=== PATIENT | female | born 1945 | race Caucasian/White ===

== ENCOUNTER 2024-03-21 09:25 | Outpatient (REF) | payer MEDICARE, SELFPAY ==
--- NOTE | ~2024-03-21 | CT_ITS ---
EXAMINATION: CT CHEST WITHOUT CONTRAST CLINICAL INFORMATION: Lung nodules COMPARISON: None available. TECHNIQUE: Multidetector volumetric CT imaging of the chest was done. Axial MIP volume rendering provided. Sagittal and coronal reformatted images were obtained. This CT examination was performed using dose optimization techniques as appropriate, variously including the following: *Automated exposure control *Adjustment of mA and/or kV according to patient size (this includes techniques or standardized protocols for targeted exams where dose is matched to indication/reason for exam; i.e. 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 On the left there is subpleural left upper lobe 0.9 cm nodule seen on image 91 series 5, and there are multiple lung nodules in the left lower lobe, measured between 0.9 cm and 1.1 cm as well as subpleural nodule in the left lower lobe measured 1.3 cm. MEDIASTINUM: There is no mediastinal lymphadenopathy. There is mild cardiomegaly.. CORONARY ARTERY CALCIFICATION: Moderate PLEURA: There is no pleural effusion. No pleural mass or thickening. AXILLA: No lymphadenopathy. UPPER ABDOMEN: Unremarkable. OSSEOUS STRUCTURES: Unremarkable. CT/CT chest wo IV con IMPRESSION: 1. Multiple bilateral lung nodules, most likely metastatic disease. Consider possibility of squama cell metastasis 2. Right upper lobe consolidation and bronchiectasis. 3. Mild cardiomegaly.. 4. PET/CT scan is recommended for follow-up of the lung nodules and the right upper lobe consolidation. Fleischner guidelines were followed. Electronically signed by: Michaela Quintero MD 04/02/2024 07:30 PM EDT
== END 2024-03-21 09:26 | disposition home or self-care (01) ==
LOC: HO.CT 09:25
PROVIDERS: PCP Family Medicine; Visit Provider Family Medicine
DX: R91.1 Solitary pulmonary nodule (principal)
CPT/HCPCS: 71250

== ENCOUNTER 2024-08-08 05:40 | Outpatient (REF) | payer MEDICARE, SELFPAY ==
[2024-08-08 05:42] LABS: MANUAL DIFF FLAG NO
--- OUTSIDE RECORDS SUMMARY | 2024-08-08 05:42 | XMS_ITS | Clinical Summary ---
Author Organization [facility] Address [address] [place] [address] Care Team Providers Care Air Brake Adjuster Name Role Phone [email or web address] Primary Care Provider [phone] Allergies No known active allergies Medications Medication Sig Dispensed Refills Start Date End Date Status ferrous sulfate 325 (65 FE) MG tablet Take 1 tablet (325 mg total) by mouth every morning with breakfast. 0 Active simvastatin (ZOCOR) tablet 20 mg Take 1 tablet (20 mg total) by mouth every night at bedtime. 0 Active lisinopril (PRINIVIL,ZESTRIL) tablet 10 mg Take 1 tablet (10 mg total) by mouth daily. 0 Active metFORMIN (GLUCOPHAGE) tablet 500 mg Take 2 tablets (1,000 mg total) by mouth 2 (two) times a day with meals. 0 Active glipiZIDE (GLUCOTROL XL) ER 24 hr tablet 5 mg Take 1 tablet (5 mg total) by mouth daily. 0 Active calcium carbonate (Calcium 600) 600 MG tablet Take 1 tablet (600 mg total) by mouth daily. 0 Active Multiple Vitamins-Minerals (MULTI-SAVITA PO) Take by mouth. 0 Activ e CRANBERRY PO Take by mouth. 0 Active cetirizine (ZyrTEC) 10 MG tablet Take 1 tablet (10 mg total) by mouth daily. 0 Active Active Problems No known active problems Social History Tobacco Use Types Packs/Day Years Used Date Smoking Tobacco: Never Assessed Sex and Gender Information Value Date Recorded Sex Assigned at Not on file Gender Identity Not on file Sexual Orientation Not on file Job Start Date Occupation Industry Not on file Not on file Not on file Last Filed Vital Signs Vital Sign Reading Time Taken Comments Blood Pressure 126/42 04/12/2024 2:05 PM EDT Pulse 104 04/12/2024 2:05 PM EDT Temperature 36.7 ??C (98.1 ??F) 04/12/2024 2:05 PM ED T Respiratory Rate - - Oxygen Saturation 100% 04/12/2024 2:05 PM EDT Inhaled Oxygen Concentration - - Weight 80.3 kg (177 lb) 04/12/2024 2:05 PM EDT Height 165.1 cm (5' 5 ) 04/12/2024 2:05 PM EDT Body Mass Index 29.45 04/12/2024 2:05 PM EDT Plan of Treatment Health Maintenance Due Date Last Done Comments Depression Screening 1955 Preventative Health Evaluation 1961 Shingrix-Zoster Vaccine (1 of 2) 1993 Fall Risk Assessment 2008 Osteoporosis Screening (DEXA Scan) 2008 RSV Adult > 60+ Yrs or (1 - 1-dose 75+ series) 2018 COVID-19 Vaccine ( season) 2024 04/21/2022, 03/27/2021, 08/22/2020, Additional history exists DTap / Tdap / Td (3 - Td or Tdap) 09/29/2032 09/29/2022, 08/12/2012 Pneumococcal Vaccine Completed 05/31/2015, 08/02/19 11 Influenza Vaccine Completed 03/22/2024, , 03/06/2020, Additional history exists Hepatitis B Vaccines Aged Out No long er eligible based on patient's age to complete this topic RSV Ped < 20 months Aged Out No longe r eligible based on patient's age to complete this topic Care Teams Air Brake Adjuster Relationship Specialty Start Date End Date Eloisa Vázquez DO [address] [address] PCP - General Internal Medicine 04/07/24
--- OUTSIDE RECORDS SUMMARY | 2024-08-08 05:44 | XMS_ITS | Encounter Summary ---
Author Organization [facility] Address [address] [place] [address] Care Team Providers Care Thread Inspector Name Role Phone Eloisa Vázquez DO Primary Care Provider [phone] Reason for Visit * Reason Comments Fall * Auth/Cert Specialty Diagnoses / Procedures Referred By Contac t Referred To Contact Diagnoses Acute encephalopathy Procedures . Wayne Donahue MD [address] [place] [phone] Phone: tel: fax: [facility] Emergency [address] [place] [address] Phone: tel: Referral ID Status Reason Start Date Expiration Date Visits Re quested Visits Authorized [id number] 1 1 Encounter Details Date Type Department Care Team (Late st Contact Info) Description 07/08/2024 10:31 AM EST - 08/06/2024 1:09 PM EST Hospital Encounter [facility] Urology Unit [address] [place] [address] Jj Wolfe MD [address] [place] [address] Wayne Donahue MD [address] [place] [address] Maria Alejandra Melendez MD [address] [place] [address] Kwesi Guido MD [address] [place] [phone] Lencho Stuart MD [address] [place] [address] Jonny Mathur MD [address] [place] [phone] Steve Cruz MD [address] [place] [address] Anemia, unspecified type (Primary Dx); Hyponatremia; Acute on chronic renal insufficiency; Acute encephalopathy; Bilateral leg edema; Pulmonary nodule Discharge Disposition: Senior Living Facility Social History Tobacco Use Types Packs/Day Years Used Date Smoking Tobacco: Never Passive Smoke Exposure: Never Smokeless Tobacco: Never Alcohol Use Standard Drinks/Week Comments No 0 (1 standard drink = 0.6 oz pur e alcohol) Interpersonal Safety Answer Date Record ed Physical Abuse 07/08/2024 Verbal Abuse 07/08/2024 Comments Unknown Sex and Gender Information Value Date Recorded Sex Assigned at Female 05/23/2024 11:57 AM EST Legal Sex Female 7:45 PM EST Gender Identity Female 06/17/2024 9:26 AM EST Sexual Orientation Straight 05/23/2024 11 :57 AM EST documented as of this encounter Last Filed Vital Signs Vital Sign Reading Time Taken Comments Blood Pressure 128/62 08/06/2024 7:25 AM EST Pulse 88 08/06/2024 7:25 AM EST Temperature 36.7 ??C (98.1 ??F) 08/06/2024 7:25 AM ES T Respiratory Rate 16 08/06/2024 7:25 AM EST Oxygen Saturation 100% 08/06/2024 7:25 AM EST Inhaled Oxygen Concentration - - Weight 69.8 kg (153 lb 12.8 oz) 08/06/2024 4:11 AM EST Height 162.5 cm (5' 3.98 ) 07/09/2024 1 2:21 AM EST Body Mass Index 26.42 07/09/2024 12:21 AM EST documented in this encounter Functional Status * Are you deaf or do you have serious difficulty hearing? Answer Date of Assessment Author No 07/08/2024 3:24 PM Davina Pierre RN * Are you blind or do you have serious difficulty seeing, even when wearing glasses? Answer Date of Assessment Author Yes 07/08/2024 3:24 PM Davina Pierre RN * Do you have serious difficulty walking or climbing stairs? Answer Date of Assessment Author No 07/08/2024 3:24 PM Davina Pierre RN * Do you have serious difficulty dressing or bathing? Answer Date of Assessment Author No 07/08/2024 3:24 PM Davina Pierre RN * Because of a physical, mental, or emotional condition, do you have serious difficulty doing errandsalone such as visiting the doctor? Answer Date of Assessment Author Yes 07/08/2024 3:24 PM Davina Pierre RN documented as of this encounter Mental Status * Because of a physical, mental, or emotional condition, do you have serious difficulty concentrating, remembering, or making decisions? (5 years old or older) Answer Entry Date Author No 07/08/2024 3:24 PM EST Lillian Granados RN documented in this encounter Discharge Summaries * Steve Cruz MD - 08/06/2024 12:54 PM EST Images from the original note were not included. [place] DISCHARGE SUMMARY Patient Information Handley A Contreras : 1945 [79 y.o.] Admitting Provider Wayne Donahue MD Discharge Provider Steve Cruz MD, Steve Cruz MD Primary Care Physician Eloisa Vázquez, Admission Date 07/08/2024 Discharge Date 08/06/2024 Summary of Hospital Problems Primary Discharge Diagnosis: Acute encephalopathy Secondary Discharge Diagnosis: esrd Discharge Destination: snf Code Status at Discharge: Full Code - Confirmed Hospital Course Summary LOS: 29 days H&P as on 07/08/2024 Mrs. Contreras is a 79-year old female with PMH that shows pulmonary nodule undergoing workup for squamous cell lung cancer with scheduled bronchoscopy and EBUS procedure next week with Dr. Montez, hypertension, hyperlipidemia, CKD, iron deficiency anemia, diabetes mellitus type 2 seen today after wellness check. Patients daughter called and did not get in touch with her mother so she called for a wellness check and the patient was found down on the ground by [facility]. She was unsure the detailsof how long she had been on the ground and how she ended up there they decided to transfer her to the hospital for further evaluation. She was initially confused in the ED. She still could not provide much history regarding what was going on but was currently alert and oriented x 4. She states thatshe has had a dry cough and has had more weakness. She denies any fevers or chills, chest pain, shortness of breath, nausea, vomiting, abdominal pain, diarrhea, leg swelling. She is legally blind so she is unaware if her stool was bloody. She has no other complaints at this time. In review of her labs she was noted to be hyponatremic but only 131/132 in May. Her creatinine was 1.6-2 and her hemoglobin was 7.4-8.2 and her white count was 12- 13. She also follows with Dr. Bryant. Vitals are as follows: Temperature of 36.4, heart rate 96, respirate of 16, blood pressure 165/70 and pulse ox of 96% on room air. Labs notable for sodium of 126, glucose of 265, BUN of 59, creatinine of 4.1, troponin of 80, 81, wbcc 18.9, hgb 7.3, hct 23.7, ua does not appear infected. CT of the cervical spine showed no acute cervical spine fracture. CT of the head showed no acute intracranial abnormality. Patient was transfused 1 unit of packed red blood cells. Patient will be transferred to the care of [facility] staff for further management of their acute encephalopathy, fall. Hospital course Patient is 79 years old female with past medical history significant for type 2 diabetes, hypertension, chronic kidney disease stage IV, iron deficiency anemia, dyslipidemia, lung nodule brought to the [facility] after wellness check was called to police by her daughter. Patient was foundon the ground unable to get up and was confused. Patient admitted to medical floors for further management of chronic kidney disease, metabolic encephalopathy. # Acute on chronic kidney injury, crescentic glomerulonephritis requiring hemodialysis. -Patient is on hemodialysis Thursday. On prednisone, Bactrim every Thursday. Per air intelligence officer patient's kidney biopsy consistent with crescentic glomerulonephritis. Rituximab given on 07/28/2024. Next dose in 2 weeks. Patient is being followed by air intelligence officer for hemodia lysis. Upon DC continue oral steroids and management plan discussed with patient's daughter by the bedside. # Right upper lobe pulmonary nodule -Noted by the previous provider. Patient has had CT-guided biopsy on 05/23/2024 which was nondiagnostic. Patient has been referred to thoracic surgery team and planned for endoscopy with EBUS. This has been scheduled for 07/27/2024 with thoracic surgery. this was postponed and patient underwent navigational bronchoscopy/radial EBUS, transbronchial biopsy of the upper lobe pulmonary nodule. Subsequent chest x-ray showed no pneumothorax. Patient needs to follow- up with thoracic surgeon as outpatient for further management. # Left lower extremity DVT. -Vascular ultrasound lower extremity bilateral on 07/16/2024 showed occlusive clot left mid to posterior tibial vein. -Patient has been started on oral Eliquis 10 mg twice daily. Currently held in preparation for the bronchoscopy biopsy. Patient needs to resume Eliquis after the biopsy procedure today pending thoracic surgery clearance. Eliquis 10 mg twice daily was started on 07/30/2024, held since 08/03/2024. # Acute metabolic encephalopathy, resolved -Present on admission, CT brain negative. Patient is alert and awake, not confused. Encephalopathy likely in the setting of renal failure. # Hematuria -Patient reportedly has had bouts of hematuria in the setting of indwelling urinary catheter and glomerulonephritis as discussed above. # Chronic iron deficiency anemia. 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 -Treated with IV iron. Patient has received multiple units blood transfusion this admission. Hemoglobin 7.8 after 1 unit prbc 08/02/24. hb 7.9 on 08/05/24 # Physical deconditioning # Traumatic rhabdomyolysis # History of fall. -Patient has had progressive weakness, history of fall. Patient noted to have traumatic rhabdomyolysis on admission which is resolved. Physical therapy evaluation completed, recommending inpatient rehab upon discharge. # Disposition SNF pending thoracic surgery clearance Anticipated length of stay in the rehab less than 30 days. Total time spent 40 minutes doing chart review, interviewing patient, gathering information, performing physical exam, formulating plan, explaining management plan to patient, coordinating care with specialists, coordinating care with RN, documentation and placing orders. Follow-Up Instructions and Recommendations Eloisa Vázquez DO [address] [facility] [address] Schedule an appointment as soon as possible for a visit in 3 day(s) for transition of care visit, If symptoms worsen, As needed Chencho Wayne MD [address] [place] [address] [facility] [address] Schedule an appointment as soon as possible for a visit in 1 week(s) for kidney failure management [address] [address] Discharge Procedure Orders Discharge Diet: Diabetic 1999 Calorie Diet, Renal Diet; Fiber, fruits and vegetables are encouragedto avoid constipation. Order Specific Question Answer Comments Discharge diet you should follow at home Diabetic 2000 Calorie Diet Discharge diet you should follow at home Renal Diet General Instructions for your diet at home Fiber, fruits and vegetables are encouraged to avoid constipation. There are no outpatient Patient Instructions on file for this admission. Discharge Medications Your medication list START taking these medications Instructions Last Dose Given Next Dose Due apixaban 5 mg tablet Commonly known as: ELIQUIS Start taking on: August 06, 2024 Take 2 tablets (10 mg total) by mouth 2 (two) times a day for 3 days, THEN 1 tablet (5 mg total) 2 (two) times a day. B complex-vitamin C-folic acid 0.8 mg tablet Commonly known as: NEPHRO-SAVITA Take 1 tablet by mouth 1 (one) time each day. pantoprazole 40 mg EC tablet Commonly known as: PROTONIX Take 1 tablet (40 mg total) by mouth 1 (one) time each day before breakfast. Do not crush, chew, orsplit. polyethylene glycol 17 gram packet Commonly known as: MIRALAX Take 17 g by mouth 1 (one) time each day if needed for constipation. predniSONE 20 mg tablet Commonly known as: DELTASONE Take 3 tablets (60 mg total) by mouth 1 (one) time each day. sulfamethoxazole-trimethoprim 800-160 mg per tablet Commonly known as: BACTRIM DS,SEPTRA DS Start taking on: August 08, 2024 Take 1 tablet by mouth 3 (three) times a week for 16 doses. thiamine 100 mg tablet Commonly known as: VITAMIN B-1 Take 1 tablet (100 mg total) by mouth 1 (one) time each day. CONTINUE taking these medications Instructions Last Dose Given Next Dose Due CALCIUM CARBONATE ORAL Calcium 600mg Take 1 tablet (600 mg total) by mouth daily cetirizine 10 mg chewable tablet Commonly known as: ZyrTEC Take 1 tablet (10 mg total) by mouth daily., cholecalciferol 50 mcg (2,000 unit) capsule Commonly known as: VITAMIN D-3 Take 1 capsule (2,000 Units total) by mouth 1 (one) time each day. CRANBERRY ORAL Take by mouth ferrous sulfate 325 mg (65 mg iron) EC tablet Do not crush, chew, or split. Take 1 tablet (325 mg total) by mouth every morning with breakfast glipiZIDE 5 mg 24 hr tablet Commonly known as: GLUCOTROL XL TAKE 2 TABLETS BY MOUTH IN THE MORNING AND TAKE 1 TABLET BY MOUTH IN THE AFTERNOON (WITH MEALS) simvastatin 20 mg tablet Commonly known as: ZOCOR Take 1 tablet (20 mg total) by mouth every night at bedtime STOP taking these medications lisinopriL 10 mg tablet Commonly known as: PRINIVIL,ZESTRIL Where to Get Your Medications Information about where to get these medications is not yet available Ask your nurse or doctor about these medications apixaban 5 mg tablet B complex-vitamin C-folic acid 0.8 mg tablet pantoprazole 40 mg EC tablet polyethylene glycol 17 gram packet predniSONE 20 mg tablet sulfamethoxazole-trimethoprim 800-160 mg per tablet thiamine 100 mg tablet Physical Exam at time of Discharge Physical Exam Constitutional: Appearance: Normal appearance. HENT: Head: Normocephalic. Eyes: Conjunctiva/sclera: Conjunctivae normal. Cardiovascular: Rate and Rhythm: Normal rate and regular rhythm. Pulses: Normal pulses. Heart sounds: Normal heart sounds. Pulmonary: Effort: Pulmonary effort is normal. No respiratory distress. Breath sounds: Normal breath sounds. Abdominal: General: Bowel sounds are normal. There is no distension. Palpations: Abdomen is soft. Neurological: Mental Status: She is alert. Psychiatric: Mood and Affect: Mood normal. Behavior: Behavior normal. Vitals Visit Vitals BP 128/62 (BP Location: Left arm, Patient Position: Lying) Pulse 88 Temp 36.7 ??C (98.1 ??F) Resp 16 Temp (24hrs), Av.6 ??C (97.8 ??F), Min:36.2 ??C (97.1 ??F), Max:36.8 ??C (98.2 ??F) Body mass index is 26.42 kg/m??. No results found for: PTWT , PTHT * Steve Cruz MD - 08/05/2024 2:06 PM EST Images from the original note were not included. [place] DISCHARGE SUMMARY Patient Information Ana Contreras : 1945 [79 y.o.] Admitting Provider Wayne Donahue MD Discharge Provider Steve Cruz MD, Steve Cruz MD Primary Care Physician Eloisa Vázquez DO Admission Date 07/08/2024 Discharge Date 08/05/2024 Summary of Hospital Problems Primary Discharge Diagnosis: Acute encephalopathy Secondary Discharge Diagnosis: esrd Discharge Destination: snf Code Status at Discharge: Full Code - Confirmed Hospital Course Summary LOS: 28 days H&P as on 07/08/2024 Mrs. Contreras is a 79-year old female with PMH that shows pulmonary nodule undergoing workup for squamous cell lung cancer with scheduled bronchoscopy and EBUS procedure next week with Dr. Montez, hypertension, hyperlipidemia, CKD, iron deficiency anemia, diabetes mellitus type 2 seen today after wellness check. Patients daughter called and did not get in touch with her mother so she called for a wellness check and the patient was found down on the ground by [facility]. She was unsure the detailsof how long she had been on the ground and how she ended up there they decided to transfer her to the hospital for further evaluation. She was initially confused in the ED. She still could not provide much history regarding what was going on but was currently alert and oriented x 4. She states thatshe has had a dry cough and has had more weakness. She denies any fevers or chills, chest pain, shortness of breath, nausea, vomiting, abdominal pain, diarrhea, leg swelling. She is legally blind so she is unaware if her stool was bloody. She has no other complaints at this time. In review of her labs she was noted to be hyponatremic but only 131/132 in May. Her creatinine was 1.6-2 and her hemoglobin was 7.4-8.2 and her white count was 12- 13. She also follows with Dr. Bryant. Vitals are as follows: Temperature of 36.4, heart rate 96, respirate of 16, blood pressure 165/70 and pulse ox of 96% on room air. Labs notable for sodium of 126, glucose of 265, BUN of 59, creatinine of 4.1, troponin of 80, 81, wbcc 18.9, hgb 7.3, hct 23.7, ua does not appear infected. CT of the cervical spine showed no acute cervical spine fracture. CT of the head showed no acute intracranial abnormality. Patient was transfused 1 unit of packed red blood cells. Patient will be transferred to the care of [facility] staff for further management of their acute encephalopathy, fall. Hospital course Patient is 79 years old female with past medical history significant for type 2 diabetes, hypertension, chronic kidney disease stage IV, iron deficiency anemia, dyslipidemia, lung nodule brought to the [facility] after wellness check was called to police by her daughter. Patient was foundon the ground unable to get up and was confused. Patient admitted to medical floors for further management of chronic kidney disease, metabolic encephalopathy. # Acute on chronic kidney injury, crescentic glomerulonephritis requiring hemodialysis. -Patient is on hemodialysis Thursday. On prednisone, Bactrim every Thursday. Per air intelligence officer patient's kidney biopsy consistent with crescentic glomerulonephritis. Rituximab given on 07/28/2024. Next dose in 2 weeks. Patient is being followed by air intelligence officer for hemodia lysis. Upon DC continue oral steroids and management plan discussed with patient's daughter by the bedside. # Right upper lobe pulmonary nodule -Noted by the previous provider. Patient has had CT-guided biopsy on 05/23/2024 which was nondiagnostic. Patient has been referred to thoracic surgery team and planned for endoscopy with EBUS. This has been scheduled for 07/27/2024 with thoracic surgery. this was postponed and patient underwent navigational bronchoscopy/radial EBUS, transbronchial biopsy of the upper lobe pulmonary nodule. Subsequent chest x-ray showed no pneumothorax. Patient needs to follow- up with thoracic surgeon as outpatient for further management. # Left lower extremity DVT. -Vascular ultrasound lower extremity bilateral on 07/16/2024 showed occlusive clot left mid to posterior tibial vein. -Patient has been started on oral Eliquis 10 mg twice daily. Currently held in preparation for the bronchoscopy biopsy. Patient needs to resume Eliquis after the biopsy procedure today pending thoracic surgery clearance. Eliquis 10 mg twice daily was started on 07/30/2024, held since 08/03/2024. # Acute metabolic encephalopathy, resolved -Present on admission, CT brain negative. Patient is alert and awake, not confused. Encephalopathy likely in the setting of renal failure. # Hematuria -Patient reportedly has had bouts of hematuria in the setting of indwelling urinary catheter and glomerulonephritis as discussed above. # Chronic iron deficiency anemia. 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 -Treated with IV iron. Patient has received multiple units blood transfusion this admission. Hemoglobin 7.8 after 1 unit prbc 08/02/24. hb 7.9 on 08/05/24 # Physical deconditioning # Traumatic rhabdomyolysis # History of fall. -Patient has had progressive weakness, history of fall. Patient noted to have traumatic rhabdomyolysis on admission which is resolved. Physical therapy evaluation completed, recommending inpatient rehab upon discharge. # Disposition SNF pending thoracic surgery clearance Anticipated length of stay in the rehab less than 30 days. Total time spent 40 minutes doing chart review, interviewing patient, gathering information, performing physical exam, formulating plan, explaining management plan to patient, coordinating care with specialists, coordinating care with RN, documentation and placing orders. Follow-Up Instructions and Recommendations DO [address] [facility] [address] Schedule an appointment as soon as possible for a visit in 3 day(s) for transition of care visit, If symptoms worsen, As needed Chencho Wayne MD [address] [facility] [phone] Schedule an appointment as soon as possible for a visit in 1 week(s) for kidney failure management [address] [address] Discharge Procedure Orders Discharge Diet: Diabetic 1999 Calorie Diet, Renal Diet; Fiber, fruits and vegetables are encouragedto avoid constipation. Order Specific Question Answer Comments Discharge diet you should follow at home Diabetic 1999 Calorie Diet Discharge diet you should follow at home Renal Diet General Instructions for your diet at home Fiber, fruits and vegetables are encouraged to avoid constipation. There are no outpatient Patient Instructions on file for this admission. Discharge Medications Your medication list START taking these medications Instructions Last Dose Given Next Dose Due apixaban 5 mg tablet Commonly known as: ELIQUIS Start taking on: August 06, 2024 Take 2 tablets (10 mg total) by mouth 2 (two) times a day for 3 days, THEN 1 tablet (5 mg total) 2 (two) times a day. B complex-vitamin C-folic acid 0.8 mg tablet Commonly known as: NEPHRO-SAVITA Start taking on: August 06, 2024 Take 1 tablet by mouth 1 (one) time each day. pantoprazole 40 mg EC tablet Commonly known as: PROTONIX Start taking on: August 06, 2024 Take 1 tablet (40 mg total) by mouth 1 (one) time each day before breakfast. Do not crush, chew, orsplit. polyethylene glycol 17 gram packet Commonly known as: MIRALAX Take 17 g by mouth 1 (one) time each day if needed for constipation. predniSONE 20 mg tablet Commonly known as: DELTASONE Start taking on: August 06, 2024 Take 3 tablets (60 mg total) by mouth 1 (one) time each day. sulfamethoxazole-trimethoprim 800-160 mg per tablet Commonly known as: BACTRIM DS,SEPTRA DS Start taking on: August 08, 2024 Take 1 tablet by mouth 3 (three) times a week for 16 doses. thiamine 100 mg tablet Commonly known as: VITAMIN B-1 Start taking on: August 06, 2024 Take 1 tablet (100 mg total) by mouth 1 (one) time each day. CONTINUE taking these medications Instructions Last Dose Given Next Dose Due CALCIUM CARBONATE ORAL Calcium 600mg Take 1 tablet (600 mg total) by mouth daily cetirizine 10 mg chewable tablet Commonly known as: ZyrTEC Take 1 tablet (10 mg total) by mouth daily., cholecalciferol 50 mcg (2,000 unit) capsule Commonly known as: VITAMIN D-3 Take 1 capsule (2,000 Units total) by mouth 1 (one) time each day. CRANBERRY ORAL Take by mouth ferrous sulfate 325 mg (65 mg iron) EC tablet Do not crush, chew, or split. Take 1 tablet (325 mg total) by mouth every morning with breakfast glipiZIDE 5 mg 24 hr tablet Commonly known as: GLUCOTROL XL TAKE 2 TABLETS BY MOUTH IN THE MORNING AND TAKE 1 TABLET BY MOUTH IN THE AFTERNOON (WITH MEALS) simvastatin 20 mg tablet Commonly known as: ZOCOR Take 1 tablet (20 mg total) by mouth every night at bedtime STOP taking these medications lisinopriL 10 mg tablet Commonly known as: PRINIVIL,ZESTRIL Where to Get Your Medications Information about where to get these medications is not yet available Ask your nurse or doctor about these medications apixaban 5 mg tablet B complex-vitamin C-folic acid 0.8 mg tablet pantoprazole 40 mg EC tablet polyethylene glycol 17 gram packet predniSONE 20 mg tablet sulfamethoxazole-trimethoprim 800-160 mg per tablet thiamine 100 mg tablet Physical Exam at time of Discharge Physical Exam Constitutional: Appearance: Normal appearance. HENT: Head: Normocephalic. Eyes: Conjunctiva/sclera: Conjunctivae normal. Cardiovascular: Rate and Rhythm: Normal rate and regular rhythm. Pulses: Normal pulses. Heart sounds: Normal heart sounds. Pulmonary: Effort: Pulmonary effort is normal. No respiratory distress. Breath sounds: Normal breath sounds. Abdominal: General: Bowel sounds are normal. There is no distension. Palpations: Abdomen is soft. Neurological: Mental Status: She is alert. Psychiatric: Mood and Affect: Mood normal. Behavior: Behavior normal. Vitals Visit Vitals BP 123/62 Pulse 81 Temp 36.6 ??C (97.9 ??F) Resp 12 Temp (24hrs), Av.4 ??C (97.6 ??F), Min:36.2 ??C (97.1 ??F), Max:36.7 ??C (98.1 ??F) Body mass index is 26.95 kg/m??. No results found for: PTWT , PTHT documented in this encounter Discharge Instructions * Attachments The following attachments cannot be sent through Care Everywhere. * Diabetes: Renal Diet ([place]) documented in this encounter Medications at Time of Discharge apixaban (ELIQUIS) 5 mg tablet Take 2 tablets (10 mg total) by mouth 2 (two) times a day for 3 days, THEN 1 tablet (5 mg total) 2 (two) times a day. 08/06/2024 5 B complex-vitamin C-folic acid (NEPHRO-SAVITA) 0.8 mg tablet Take 1 tablet by mouth 1 (one) time each day. 08/06/2024 5 CALCIUM CARBONATE ORAL Calcium 600mg Take 1 tablet (600 mg total) by mouth daily cetirizine (ZyrTEC) 10 mg chewable tablet Take 1 tablet (10 mg total) by mouth daily., cholecalciferol (VITAMIN D-3) 50 mcg (2,000 unit) capsule Take 1 capsule (2,000 Units total) by mouth 1 (one) time each day. CRANBERRY ORAL Take by mouth ferrous sulfate 325 mg (65 mg iron) EC tablet Do not crush, chew, or split. Take 1 tablet (325 mg total) by mouth every morning with breakfast glipiZIDE (GLUCOTROL XL) 5 mg 24 hr tablet TAKE 2 TABLETS BY MOUTH IN THE MORNING AND TAKE 1 TABLET BY MOUTH IN THE AFTERNOON (WITH MEALS) 270 tablet 06/17/2024 pantoprazole (PROTONIX) 40 mg EC tablet Take 1 tablet (40 mg total) by mouth 1 (one) time each day before breakfast. Do not crush, chew, or split. 08/06/2024 5 polyethylene glycol (MIRALAX) 17 gram packet Take 17 g by mouth 1 (one) time each day if needed for constipation. 08/05/2024 5 predniSONE (DELTASONE) 20 mg tablet Take 3 tablets (60 mg total) by mouth 1 (one) time each day. 08/06/2024 5 simvastatin (ZOCOR) 20 mg tablet Take 1 tablet (20 mg total) by mouth every night at bedtime sulfamethoxazole -trimethoprim (BACTRIM DS,SEPTRA DS) 800-160 mg per tablet Take 1 tablet by mouth 3 (three) times a week for 16 doses. 08/08/2024 5 thiamine (VITAMIN B-1) 100 mg tablet Take 1 tablet (100 mg total) by mouth 1 (one) time each day. 08/06/2024 5 documented as of this encounter Ordered Prescriptions Prescription Sig Dispense Quantity Refills Last Filled Start Date End Date B complex-vitamin C-folic acid (NEPHRO-SAVITA) 0.8 mg tablet Take 1 tablet by mouth 1 (one) time each day. 08/06/2024 5 pantoprazole (PROTONIX) 40 mg EC tablet Take 1 tablet (40 mg total) by mouth 1 (one) time each day before breakfast. Do not crush, chew, or split. 08/06/2024 5 polyethylene glycol (MIRALAX) 17 gram packet Take 17 g by mouth 1 (one) time each day if needed for constipation. 08/05/2024 5 sulfamethoxazole-t rimethoprim (BACTRIM DS,SEPTRA DS) 800-160 mg per tablet Take 1 tablet by mouth 3 (three) times a week for 16 doses. 08/08/2024 5 thiamine (VITAMIN B-1) 100 mg tablet Take 1 tablet (100 mg total) by mouth 1 (one) time each day. 08/06/2024 5 predniSONE (DELTASONE) 20 mg tablet Take 3 tablets (60 mg total) by mouth 1 (one) time each day. 08/06/2024 5 apixaban (ELIQUIS) 5 mg tablet Take 2 tablets (10 mg total) by mouth 2 (two) times a day for 3 days, THEN 1 tablet (5 mg total) 2 (two) times a day. 08/06/2024 documented in this encounter Discharge Disposition Disposition Code Departure Means Destination Comment s Senior Living Facility documented in this encounter Progress Notes * Jacquelin Davidson RN - 08/06/2024 1:04 PM EST Report given to ems, to transport to [facility]. * Jacquelin Davidson RN - 08/06/2024 9:47 AM EST Goals: Identify possible barriers to meeting goals/advancing plan of care: Stability of the patient: Moderately Stable - Low risk of patient condition declining or worsening End of Shift Summary: D/c today [facility] @ 1pm * Tarsha Corea RN - 08/06/2024 7:23 AM EST 08/06/24 0722 Initial Transition Plan Initial Transition Plan Senior Living Facility ([facility] Transportation Transportation at discharge [facility] providing transportation [place] What day is the transport expected? 08/06/24 What time is the transport expected? 1300 Final Discharge Disposition Senior Living Facility * Katina Machuca RN - 08/06/2024 2:20 AM EST Goals: Problem: Mobility Goal: Patient will be able to go up and down a curb/step with the appropriate device Outcome: Not Progressing Goal: Patient will propel wheelchair household/community distances Outcome: Not Progressing Goal: Patient will demonstrate kitchen mobility Outcome: Not Progressing Goal: Patient will recall and demonstrate 3 out of 3 total hip precautions during mobility Outcome: Not Progressing Goal: Patient will ambulate community distance Outcome: Not Progressing Goal: Patient will propel wheelchair household distances Outcome: Not Progressing Goal: Patient will ambulate household distance Outcome: Not Progressing Goal: Patient will navigate 4-6 steps with rails/device Outcome: Not Progressing Goal: Patient will propel the wheelchair Outcome: Not Progressing Goal: Patient will ambulate up and down a curb/step Outcome: Not Progressing Goal: Patient will ascend and descend four to six stairs Outcome: Not Progressing Goal: Patient will ascend and descend a flight of stairs Outcome: Not Progressing Identify possible barriers to meeting goals/advancing plan of care: pending dc to rehab Stability of the patient: Moderately Stable - Low risk of patient condition declining or worsening End of Shift Summary: vss no complaints overnight * Steve Cruz MD - 08/05/2024 2:06 PM EST H&P as on 07/08/2024 Mrs. Contreras is a 79-year old female with PMH that shows pulmonary nodule undergoing workup for squamous cell lung cancer with scheduled bronchoscopy and EBUS procedure next week with Dr. Montez, hypertension, hyperlipidemia, CKD, iron deficiency anemia, diabetes mellitus type 2 seen today after wellness check. Patients daughter called and did not get in touch with her mother so she called for a wellness check and the patient was found down on the ground by [facility]. She was unsure the detailsof how long she had been on the ground and how she ended up there they decided to transfer her to the hospital for further evaluation. She was initially confused in the ED. She still could not provide much history regarding what was going on but was currently alert and oriented x 4. She states thatshe has had a dry cough and has had more weakness. She denies any fevers or chills, chest pain, shortness of breath, nausea, vomiting, abdominal pain, diarrhea, leg swelling. She is legally blind so she is unaware if her stool was bloody. She has no other complaints at this time. In review of her labs she was noted to be hyponatremic but only 131/132 in May. Her creatinine was 1.6-2 and her hemoglobin was 7.4-8.2 and her white count was 12- 13. She also follows with Dr. Bryant. Vitals are as follows: Temperature of 36.4, heart rate 96, respirate of 16, blood pressure 165/70 and pulse ox of 96% on room air. Labs notable for sodium of 126, glucose of 265, BUN of 59, creatinine of 4.1, troponin of 80, 81, wbcc 18.9, hgb 7.3, hct 23.7, ua does not appear infected. CT of the cervical spine showed no acute cervical spine fracture. CT of the head showed no acute intracranial abnormality. Patient was transfused 1 unit of packed red blood cells. Patient will be transferred to the care of [facility] staff for further management of their acute encephalopathy, fall. Hospital course Patient is 79 years old female with past medical history significant for type 2 diabetes, hypertension, chronic kidney disease stage IV, iron deficiency anemia, dyslipidemia, lung nodule brought to the [facility] after wellness check was called to police by her daughter. Patient was foundon the ground unable to get up and was confused. Patient admitted to medical floors for further management of chronic kidney disease, metabolic encephalopathy. # Acute on chronic kidney injury, crescentic glomerulonephritis requiring hemodialysis. -Patient is on hemodialysis Thursday. On prednisone, Bactrim every Thursday. Per air intelligence officer patient's kidney biopsy consistent with crescentic glomerulonephritis. Rituximab given on 07/28/2024. Next dose in 2 weeks. Patient is being followed by air intelligence officer for hemodia lysis. Upon DC continue oral steroids and management plan discussed with patient's daughter by the bedside. # Right upper lobe pulmonary nodule -Noted by the previous provider. Patient has had CT-guided biopsy on 05/23/2024 which was nondiagnostic. Patient has been referred to thoracic surgery team and planned for endoscopy with EBUS. This has been scheduled for 07/27/2024 with thoracic surgery. this was postponed and patient underwent navigational bronchoscopy/radial EBUS, transbronchial biopsy of the upper lobe pulmonary nodule. Subsequent chest x-ray showed no pneumothorax. Patient needs to follow- up with thoracic surgeon as outpatient for further management. # Left lower extremity DVT. -Vascular ultrasound lower extremity bilateral on 07/16/2024 showed occlusive clot left mid to posterior tibial vein. -Patient has been started on oral Eliquis 10 mg twice daily. Currently held in preparation for the bronchoscopy biopsy. Patient needs to resume Eliquis after the biopsy procedure today pending thoracic surgery clearance. Eliquis 10 mg twice daily was started on 07/30/2024, held since 08/03/2024. # Acute metabolic encephalopathy, resolved -Present on admission, CT brain negative. Patient is alert and awake, not confused. Encephalopathy likely in the setting of renal failure. # Hematuria -Patient reportedly has had bouts of hematuria in the setting of indwelling urinary catheter and glomerulonephritis as discussed above. # Chronic iron deficiency anemia. 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 -Treated with IV iron. Patient has received multiple units blood transfusion this admission. Hemoglobin 7.8 after 1 unit prbc 08/02/24. hb 7.9 on 08/05/24 # Physical deconditioning # Traumatic rhabdomyolysis # History of fall. -Patient has had progressive weakness, history of fall. Patient noted to have traumatic rhabdomyolysis on admission which is resolved. Physical therapy evaluation completed, recommending inpatient rehab upon discharge. # Disposition SNF pending thoracic surgery clearance Anticipated length of stay in the rehab less than 30 days. Total time spent 40 minutes doing chart review, interviewing patient, gathering information, performing physical exam, formulating plan, explaining management plan to patient, coordinating care with specialists, coordinating care with RN, documentation and placing orders. * Tarsha Corea RN - 08/05/2024 1:38 PM EST 08/05/24 1337 Initial Transition Plan Initial Transition Plan Senior Living Facility ([facility]) Transportation Transportation at discharge [facility] Company providing transportation [place] What day is the transport expected? 08/05/24 What time is the transport expected? 1700 Final Discharge Disposition Inpatient Rehab Family in agreement w [facility] plan. * Nelli Schmidt OT - 08/05/2024 12:30 PM EST Therapy session was attempted for Ana Contreras by Nelli Schmidt OT on 08/05/2024. The patient wasunable to be seen for the following reason(s): Out of room at a medical procedure. Pt out of room at this time Plan for return visit: As soon as possible * Jacquelin Davidson RN - 08/05/2024 11:43 AM EST Goals: Identify possible barriers to meeting goals/advancing plan of care: PENDING BRONCH THEN D/C TO SNF Stability of the patient: Moderately Stable - Low risk of patient condition declining or worsening End of Shift Summary: PLAN TO D/C TO [facility] LAT[facility] TODAY * Louis Welch RN - 08/05/2024 11:15 AM EST 08/05/24 1050 Vital Signs Patient Identification Yes Temp 36.4 ??C (97.5 ??F) Temp Source Temporal Heart Rate 80 Heart Rate Source Left;Brachial Resp 16 BP (!) 147/72 MAP (Device/Manual Entry) 96 mmHg MAP (Calculated) 97 mm Hg BP Method Automatic BP Location Left arm Patient Position Lying CO2 Monitor (mmHg) (N/A) Arterial Line BP (N/A) Arterial Line MAP (mmHg) (N/A) SpO2 100 % (Room Air) Post-Hemodialysis Assessment Rinseback Volume (mL) 150 mL Total Liters Processed (L/min) 70.6 L/min Dialyzer Clearance Lightly streaked Duration of Treatment (minutes) 180 minutes Hemodialysis Output (mL) 2000 mL Patient Response to Treatment/Comments Pt tolerated 3.0 hr HD tx well. 2.0 L net fluid removed. No new complaints. Pt stable post-tx and at transport back to room. Report given to Pre-op nurse Nancy Benson RN. Next Hemodialysis tx Thursday08/08/2024 Weight (Unable to obtain post-weight) * Kayleigh Laguna RD - 08/05/2024 10:35 AM EST 08/05/2024 @ 10:35 AM EST Nutrition Follow Up Note Reason for RD Intervention: Assessment Type: Follow-up Reason for Assessment: High MST Score Anthropometrics: Height: 162.5 cm (63.98 ) Weight: 71.2 kg (156 lb 14.4 oz) Weight Method: Actual BMI (Calculated): 27 BMI Class: Overweight IBW (lbs): 120 Current Diet and Supplements: Dietary Orders (From admission, onward) Start Ordered 08/05/24 0001 Adult NPO diet Location: [facility]; Diet: NPO- Except for Medications Diet effective midnight Question Answer Comment Location [facility] Diet NPO- Except for Medications 08/04/24 0838 07/11/24 1133 Dietary nutrition supplements Two times daily (BID); [facility]; Diabetic Supplement Continuous Question Answer Comment Frequency Two times daily (BID) Location [facility] Supplements Diabetic Supplement 07/11/24 1132 History of presenting illness: Patient is a 79 y.o. female with a history of Past Medical History: Diagnosis Date Anemia Arthritis Blindness Decreased vision 11/29/2014 DX:Decreased vision Diabetes mellitus, type 2 (CMS/HCC) 02/14/2014 DX:Diabetes mellitus, type 2 (HCC) DVT, lower extremity ([facility]) LEFT LEG Family history of early CAD 03/01/2014 DX:Family history of early CAD Family history of factor V Leiden mutation 12/12/2015 DX:Family history of factor V Leiden mutation History of renal dialysis CURRENT VIA [facility] (hearing loss) Hyperlipidemia 02/14/2014 DX:Hyperlipidemia Hypertension 02/14/2014 DX:Hypertension Joint pain Lung nodule Microalbuminuria 09/22/2016 DX:Microalbuminuria Osteoporosis 02/14/2014 DX:Osteoporosis Past Surgical History: Procedure Laterality Date CATARACT EXTRACTION Bilateral 2019 PROCEDURE: HISTORICAL CATARACT REMOVAL OTHER SURGICAL HISTORY 05/2012 PROCEDURE: ---- OTHER ----; COMMENT: lumbar microdiscectomy admitted 07/08/2024 with Acute encephalopathy. Weight History: Wt Readings from Last 10 Encounters: 08/05/24 71.2 kg (156 lb 14.4 oz) 06/17/24 76.2 kg (168 lb) 06/13/24 76.5 kg (168 lb 9.6 oz) 06/06/24 76.4 kg (168 lb 6.4 oz) 05/30/24 76.7 kg (169 lb) 05/23/24 76.2 kg (168 lb) 05/13/24 77.6 kg (171 lb) 04/27/24 78.8 kg (173 lb 11.2 oz) 04/18/24 79.8 kg (176 lb) 04/12/24 80.3 kg (177 lb) Updated weight 156 lb, indicating a weight loss of 17 lb since 07/22. Suspect weight loss multifactorial- fluid loss from HD and actual weight loss due to poor PO for ~2-3 weeks. Subjective Assessment: Pt consuming ~50% of meals since last RD visit. Currently NPO for biopsy of pulmonary nodule today.Continues on HD. Updated weight 156 lb today. Plan is for rehab placement to be pursued after biopsy. Nutrition-Related Lab Values: Results from last 7 days Lab Units 08/05/24 0704 08/05/24 0703 08/03/24 0849 08/03/24 0601 07/30/24 1702 07/30/24 1152 SODIUM mmol/L 133 -- -- -- < > -- POTASSIUM mmol/L 4.5 -- -- -- < > -- PHOSPHORUS mg/dL -- -- -- 4.3 -- -- MAGNESIUM mg/dL -- -- -- 2.1 -- -- CHLORIDE mmol/L 96 -- -- -- < > -- CO2 mmol/L 32 -- -- -- < > -- BUN mg/dL 53* -- -- -- < > -- CREATININE mg/dL 3.91* -- < > -- < > -- EGFR mL/min/1.73m2 11* -- < > -- < > -- CALCIUM mg/dL 8.4* -- -- -- < > -- BILIRUBIN TOTAL mg/dL -- -- -- -- -- 0.4 ALK PHOS unit/L -- -- -- -- -- 80 ALT unit/L -- -- -- -- -- 17 AST unit/L -- -- -- -- -- 12 POCT GLUCOSE -- -- < > -- < > -- GLUCOSE mg/dL 138* -- -- -- < > -- WBC AUTO K/mcL -- 8.8 < > 7.5 < > -- < > = values in this interval not displayed. Lab Results Component Value Date LIPASE <10 (L) 07/12/2024 Medications: [Held by provider] apixaban, 10 mg, oral, BID [Held by provider] apixaban, 5 mg, oral, BID atorvastatin, 10 mg, oral, Nightly B complex-vitamin C-folic acid, 1 each, oral, Daily docusate sodium, 100 mg, oral, BID insulin glargine, 10 Units, subcutaneous, Nightly insulin lispro, 1-6 Units, subcutaneous, Before meals & nightly insulin lispro, 3 Units, subcutaneous, TID AC pantoprazole, 40 mg, oral, q AM AC polyetheylene glycol, 17 g, oral, Daily predniSONE, 60 mg, oral, Daily sodium chloride, 10 mL, intravenous, BID sodium chloride, 10 mL, intravenous, BID sulfamethoxazole-trimethoprim, 160 mg, oral, Once per day on Thursday thiamine, 100 mg, oral, Daily CONTINUOUS: PRN medications: acetaminophen, acetaminophen, albuterol, benzonatate, dextrose 50%, dextrose 50%, dextrose, dextrose, diphenhydrAMINE, diphenhydrAMINE, EPINEPHrine, famotidine, glucagon injection, hydrALAZINE, hydrocortisone sodium succinate, HYDROmorphone, naloxone, ondansetron, oxyCODONE, artificial tears, sodium chloride, sodium chloride, Insert peripheral IV AND Maintain IV access AND Saline lock IV AND sodium chloride AND sodium chloride, [COMPLETED] Insert Midline ANDMaintain IV access AND Saline lock IV AND sodium chloride AND sodium chloride, sodium chloride, sodium chloride, sodium chloride, sodium chloride Food/Nutrition-Current Status: Intake Type: P.O. Appetite: Fair Intake Amount (%): 25-50% Intake Assessment: Improved Nutrition Focused Physical Findings: Overall Appearance: No visual findings of muscle or fat depletion Skin: Skin intact per front end engineer Nutrition Diagnosis: Code Type: None Identified Status: Other (Comment) (Continuing to monitor for weight loss) Diagnosis: Unintentional Weight Loss Etiology: Changes in taste and appetite or preference Symptoms: pt report of 24-33 lb weight loss in 3 months prior to admission Nutrition Interventions: Meals/Snacks, Medical Food Supplement, Nutrition Education, Diet Order - Once back from procedure, recommend advance to previously ordered diet- 2 gm Na, 90 gm carbohydrate/meal, 3 gm K - Continue glucerna BID for inadequate intake - Monitor weights, renal labs, POCs Goals: Patient will tolerate diet progression. , Patient will consume greater than or equal to 75% meals.,Patient will consume ONS., Monitor/control glucose levels, Improvement in renal labs., Electrolyteswithin normal range., Maintain weight., Stooling appropriately., and Maintain skin integrity. Monitoring/Evaluation: Fluid/Beverage Intake, Food Intake, Weight, Medical Food Supp/Oral Nutrition Supp, Renal/Electrolyte Profile, Gastrointestinal Profile, Diet Order Follow Up: Nutrition Priority Level: Moderate Please consult nutrition if needed sooner. RD remains available and will continue to follow. Signature: Kayleigh Laguna RD * Chencho Wayne MD - 08/05/2024 9:10 AM EST Images from the original note were not included. Progress Note CHIEF COMPLAINT F/u re; RENE HD dependent with ANCA RPGN SUBJECTIVE Patient seen and examined today on dialysis For biopsy today MEDICAL HISTORY Past Medical History: Diagnosis Date Anemia Arthritis Blindness Decreased vision 11/29/2014 DX:Decreased vision Diabetes mellitus, type 2 (CMS/HCC) 02/14/2014 DX:Diabetes mellitus, type 2 (HCC) DVT, lower extremity (CMS/HCC) LEFT LEG Family history of early CAD 03/01/2014 DX:Family history of early CAD Family history of factor V Leiden mutation 12/12/2015 DX:Family history of factor V Leiden mutation History of renal dialysis CURRENT [facility]IA [facility] (hearing loss) Hyperlipidemia 02/14/2014 DX:Hyperlipidemia Hypertension 02/14/2014 DX:Hypertension Joint pain Lung nodule Microalbuminuria 09/22/2016 DX:Microalbuminuria Osteoporosis 02/14/2014 DX:Osteoporosis MEDICATIONS [Held by provider] apixaban, 10 mg, oral, BID [Held by provider] apixaban, 5 mg, oral, BID atorvastatin, 10 mg, oral, Nightly B complex-vitamin C-folic acid, 1 each, oral, Daily docusate sodium, 100 mg, oral, BID insulin glargine, 10 Units, subcutaneous, Nightly insulin lispro, 1-6 Units, subcutaneous, Before meals & nightly insulin lispro, 3 Units, subcutaneous, TID AC pantoprazole, 40 mg, oral, q AM AC polyetheylene glycol, 17 g, oral, Daily predniSONE, 60 mg, oral, Daily sodium chloride, 10 mL, intravenous, BID sodium chloride, 10 mL, intravenous, BID sulfamethoxazole-trimethoprim, 160 mg, oral, Once per day on Thursday thiamine, 100 mg, oral, Daily PRN medications: acetaminophen, acetaminophen, albuterol, benzonatate, dextrose 50%, dextrose 50%, dextrose, dextrose, diphenhydrAMINE, diphenhydrAMINE, EPINEPHrine, famotidine, glucagon injection, hydrALAZINE, hydrocortisone sodium succinate, HYDROmorphone, naloxone, ondansetron, oxyCODONE, artificial tears, sodium chloride, sodium chloride, Insert peripheral IV AND Maintain IV access AND Saline lock IV AND sodium chloride AND sodium chloride, [COMPLETED] Insert Midline ANDMaintain IV access AND Saline lock IV AND sodium chloride AND sodium chloride, sodium chloride, sodium chloride, sodium chloride, sodium chloride OBJECTIVE Vital signs in last 24 hours: Visit Vitals BP (!) 150/72 Pulse 68 Temp 36.5 ??C (97.7 ??F) (Temporal) Resp 16 Intake/Output last 24 hours: Intake/Output Summary (Last 24 hours) at 08/05/2024 0910 Last data filed at 08/05/2024 0900 Gross per 24 hour Intake 1088 ml Output 550 ml Net 538 ml Weights: Admission Weight: Weight: 72.6 kg (160 lb) Wt Readings from Last 3 Encounters: 08/05/24 71.2 kg (156 lb 14.4 oz) 06/17/24 76.2 kg (168 lb) 06/13/24 76.5 kg (168 lb 9.6 oz) Physical Exam: General: No acute distress HEENT: Normocephalic, atraumatic, anicteric Cardiovascular: S1 S2 normal Respiratory: unlabored Gl: soft non-distended Extremities: No cyanosis Neurological: Alert Integumentary: no rash Psych: Calm, cooperative LABS Results from last 7 days Lab Units 08/05/24 0703 08/03/24 0849 08/03/24 0601 WBC AUTO K/mcL 8.8 8.5 7.5 HEMOGLOBIN g/dL 7.9* 7.7* 7.8* HEMATOCRIT % 25.5* 24.6* 24.7* MCV FL 87.6 84.2 85.8 PLATELETS K/mcL 180 186 188 Results from last 7 days Lab Units 08/05/24 0704 08/04/24 0631 08/01/24 0659 07/31/24 0543 CREATININE mg/dL 3.91* 2.49* 4.62* 3.73* BUN mg/dL 53* -- 71* 54* SODIUM mmol/L 133 -- 132* 132* POTASSIUM mmol/L 4.5 -- 4.7 4.4 CHLORIDE mmol/L 96 -- 96 94* CO2 mmol/L 32 -- 30 31 Phosphorus Date Value Ref Range Status 08/03/2024 4.3 2.5 - 4.5 mg/dL Final 07/17/2024 2.9 2.5 - 4.5 mg/dL Final 07/15/2024 4.2 2.5 - 4.5 mg/dL Final PTH Date Value Ref Range Status 07/10/2024 10.5 (L) 18.5 - 88.0 pcg/mL Final 07/08/2024 6.5 (L) 18.5 - 88.0 pcg/mL Final Iron Date Value Ref Range Status 07/08/2024 20 (L) 40 - 150 mcg/dL Final Comment: Hemolysis present 05/31/2024 14 (L) 40 - 150 mcg/dL Final TIBC Date Value Ref Range Status 07/08/2024 186 (L) 250 - 450 mcg/dL Final 05/31/2024 278 250 - 450 mcg/dL Final Ferritin Date Value Ref Range Status 07/08/2024 708 (H) 8 - 252 ng/mL Final 05/31/2024 294 (H) 8 - 252 ng/mL Final No results found for: COLORUA , CLARITYUA , SPECGRAVUA , PHUA , PROTUA , GLUCOSEUA , KETONESUA , BILIRUBINUA , BLOODUA , UROBILINOGUA , NITRITEUA IMPRESSION and PLAN RENE ANCA pos Granulomatosis with polyangiitis (GP?) Hyponatremia Anemia CKD 3 S/p Rituximab infusion (700 mg) 07/30/24 S/p IV pulse steroid on oral prednisone Preliminary kidney biopsy result (07/22) c/w crescentic necrotizing glomerulonephritis High PR3 c/w granulomatosis with polyangiitis (GP?) RENE remains HD dependent with no sign of recovery yet No obstruction by renal US Significant proteinuria MAC 3.6 mg/g No M spike on SPEP Negative hepatitis B surface Ag Low C3 Normal C4 MPO Ab negative PR3 Ab positive 165 Scr ~ 1.13 mg/dl on 01/24 Nephrogenic anemia Iron deficiency REC Rituximab infusion in 2 weeks from the date of last dose-dose given on 07/30/2024 Next dose on August 12 HD MWF-continue dialysis today. Volume removal as tolerated potassium per protocol. Will use permacath Discussed with the medical team yesterday : C/w prednisone 60 mg daily ( started 07/24)-will continue the same dose-this dose will continue for about 4 to 6 weeks and will be tapered by the air intelligence officer Continue PPI in the outpatient setting if patient is on prednisone Continue Bactrim DS in the outpatient setting thrice weekly () as patient is immunosuppressed Lung mass biopsy with Dr. Montez today s/p transfusion yesterday Outpatient HD arranged at [facility] -- 1st shift [phone] on hold since July 21. I have given orders for the patient to start on Thursday Patient for discharge to [facility] [facility] team. Patient to get transfused today From renal standpoint patient can be discharged today or on Thursday The outpatient facility needs to arrange for rituximab infusion on August 11 or at [facility] outpatient infusion-they can touch base with the renal MD [facility] for that shift for orders and dosage Discussed with the medical team/outpatient dialysis nursing staff and showcase maker history Chencho Wayne MD * Prisca Goldman PT - 08/05/2024 7:26 AM EST Therapy session was attempted for Ana Contreras by Prisca Goldman PT on 08/05/2024. The patient was unable to be seen for the following reason(s): Out of room at a medical procedure and Other: at HD Plan for return visit: Tomorrow * María Hawk RN - 08/05/2024 4:51 AM EST Goals: Identify possible barriers to meeting goals/advancing plan of care: Increase strength/mobility and decreased the risk of a fall. Stability of the patient: Moderately Stable - Low risk of patient condition declining or worsening End of Shift Summary: Patient is Aox3, VSS, Night medications given. Patient in bed. Bed in lowest position, call chavarria in reach and bed alarm on. No issues or concerns at this time. * Jolene Cardona RN - 08/04/2024 6:10 PM EST Goals: Identify possible barriers to meeting goals/advancing plan of care: Bronch/weakness/dialysis Stability of the patient: Moderately Stable - Low risk of patient condition declining or worsening End of Shift Summary: Pt remains stable throughout shift. Urinated 150 ml in bedpan this AM. Bladder scan performed as ordered, see I/O's. * Steve Cruz MD - 08/04/2024 12:21 PM EST Images from the original note were not included. SONYA PROGRESS NOTE Date: 08/04/2024 Author: Steve Cruz MD Patient ID: Ana Contreras is a 79 y.o. female : 1945 MR#: [id number] SUBJECTIVE Subjective Patient seen by the bedside this morning No acute events overnight.plan for brochoscopy biopsy tomorrow by thoracic surgery . Can be transferred to rehab following that. Discussed with , Allergies Patient has no known allergies. Current Medications: [Held by provider] apixaban, 10 mg, oral, BID [Held by provider] apixaban, 5 mg, oral, BID atorvastatin, 10 mg, oral, Nightly B complex-vitamin C-folic acid, 1 each, oral, Daily docusate sodium, 100 mg, oral, BID insulin glargine, 10 Units, subcutaneous, Nightly insulin lispro, 1-6 Units, subcutaneous, Before meals & nightly insulin lispro, 3 Units, subcutaneous, TID AC pantoprazole, 40 mg, oral, q AM AC polyetheylene glycol, 17 g, oral, Daily predniSONE, 60 mg, oral, Daily sodium chloride, 10 mL, intravenous, BID sodium chloride, 10 mL, intravenous, BID sulfamethoxazole-trimethoprim, 160 mg, oral, Once per day on Thursday thiamine, 100 mg, oral, Daily PRN medications: acetaminophen, acetaminophen, albuterol, benzonatate, dextrose 50%, dextrose 50%, dextrose, dextrose, diphenhydrAMINE, diphenhydrAMINE, EPINEPHrine, famotidine, glucagon injection, hydrALAZINE, hydrocortisone sodium succinate, HYDROmorphone, naloxone, ondansetron, oxyCODONE, artificial tears, sodium chloride, Insert peripheral IV AND Maintain IV access AND Saline lock IV AND sodium chloride AND sodium chloride, [COMPLETED] Insert Midline AND Maintain IV access AND Saline lock IV AND sodium chloride AND sodium chloride, sodium chloride, sodium chloride, sodium chloride, sodium chloride OBJECTIVE Vitals: 08/03/24 2110 08/04/24 0220 08/04/24 0549 08/04/24 0802 BP: (!) 143/72 (!) 144/55 136/60 BP Location: Left arm Left arm Left arm Patient Position: Lying Lying Lying Pulse: 87 90 90 Resp: 16 18 16 Temp: 36.5 ??C (97.7 ??F) 36.6 ??C (97.9 ??F) 36.9 ??C (98.4 ??F) TempSrc: Oral Oral Temporal SpO2: 99% 98% 99% Weight: 71.4 kg (157 lb 4.8 oz) Height: Physical Exam Constitutional: General: She is not in acute distress. Appearance: Normal appearance. She is not toxic-appearing. HENT: Head: Normocephalic and atraumatic. Eyes: Conjunctiva/sclera: Conjunctivae normal. Cardiovascular: Rate and Rhythm: Normal rate and regular rhythm. Pulses: Normal pulses. Heart sounds: Normal heart sounds. Pulmonary: Effort: Pulmonary effort is normal. No respiratory distress. Breath sounds: Normal breath sounds. Abdominal: General: Bowel sounds are normal. There is no distension. Palpations: Abdomen is soft. Neurological: Mental Status: She is alert. Mental status is at baseline. Psychiatric: Mood and Affect: Mood normal. Behavior: Behavior normal. LABS HEMATOLOGY Lab Results Component Value Date WBC 8.5 08/03/2024 HGB 7.7 (L) 08/03/2024 HCT 24.6 (L) 08/03/2024 MCV 84.2 08/03/2024 PLT 186 08/03/2024 CHEMISTRY Lab Results Component Value Date GLUCOSE 130 (H) 08/04/2024 NA 132 (L) 08/01/2024 K 4.7 08/01/2024 CO2 30 08/01/2024 CL 96 08/01/2024 BUN 71 (H) 08/01/2024 CREATININE 2.49 (H) 08/04/2024 EGFR 19 (L) 08/04/2024 CALCIUM 8.6 08/01/2024 MG 2.1 08/03/2024 PHOS 4.3 08/03/2024 ANIONGAP 6 08/01/2024 Imaging: IR Bx Ndl Renal Perc Left Narrative: INDICATION: Acute renal failure PROCEDURE: Consent obtained for CT guided random core renal biopsy under conscious sedation. prior relevant studies: PET/CT from May 03, 2024 MEDICATIONS: Local anesthesia: 8 cc of 1% buffered lidocaine administered subcutaneously. Sedation: Moderate intravenous sedation was initiated and maintained for 30 minutes while the patient was independently monitored by the radiology nurse under the supervision of the interventional radiologist. A total of 1.5 mg of Versed and 50 mcg of fentanyl administered during the procedure. Scanner: [employer] [address] Dose reduction technique: AEC (automated exposure control) Dose: total exam DLP 373 mGY per cm TECHNIQUE: Patient placed prone on the CT table and multiple axial images obtained through the kidneys. Appropriate area the skin overlying the left kidney was marked, draped and prepped using maximum sterile barrier. Moderate sedation initiated with administration of local anesthetic. Under CT fluo roscopic guidance a 17-gauge coaxial needle was advanced into the periphery of the localized kidney. 3 18-gauge core biopsy samples obtained. Gelfoam slurry was injected through the coaxial needle along the perinephric space. FINDINGS: Initial limited CT images of the abdomen demonstrate normal-sized kidneys bilaterally. Left lower pole localized for biopsy. Images obtained during localization and needle positioning demonstrate coaxial needle positioned within the periphery of the localized kidney. Images obtained after biopsy demonstrate no significant postbiopsy hemorrhage. Gelfoam slurry notedalong the liver capsule at site of needle insertion. SPECIMENS: Core biopsy samples placed in sterile saline and sent to the pathology department. Impression: CT-guided random core renal biopsy using coaxial technique. -------- FINAL REPORT -------- Dictated By: Fela Palomo Dictated Date: 07/22/2024 16:58 ET Assigned Physician: Fela Palomo Reviewed and Electronically Signed By: Fela Palomo Signed Date: 07/22/2024 17:00 ET Workstation ID: [id number] Transcribed By: Self Edit Transcribed Date: 07/22/2024 16:58 ET ASSESSMENT & PLAN Patient is 79 years old female with past medical history significant for type 2 diabetes, hypertension, chronic kidney disease stage IV, iron deficiency anemia, dyslipidemia, lung nodule brought to the [facility] after wellness check was called to police by her daughter. Patient was foundon the ground unable to get up and was confused. Patient admitted to medical floors for further management of chronic kidney disease, metabolic encephalopathy. # Acute on chronic kidney injury, crescentic glomerulonephritis requiring hemodialysis. -Patient is on hemodialysis Thursday. On prednisone, Bactrim every Thursday. Per air intelligence officer patient's kidney biopsy consistent with crescentic glomerulonephritis. Rituximab given on 07/28/2024. Next dose in 2 weeks. Patient is being followed by air intelligence officer for hemodia lysis. # Right upper lobe pulmonary nodule -Noted by the previous provider. Patient has had CT-guided biopsy on 05/23/2024 which was nondiagnostic. Patient has been referred to thoracic surgery team and planned for endoscopy with EBUS. This has been scheduled for 07/27/2024 with thoracic surgery. This has been postponed and rescheduled to bedone on 08/05/2024. NPO midnight ordered. Eliquis is on hold. # Left lower extremity DVT. -Vascular ultrasound lower extremity bilateral on 07/16/2024 showed occlusive clot left mid to posterior tibial vein. -Patient has been started on oral Eliquis 10 mg twice daily. Currently held in preparation for the bronchoscopy biopsy tomorrow. # Acute metabolic encephalopathy, resolved -Present on admission, CT brain negative. Patient is alert and awake, not confused. Encephalopathy likely in the setting of renal failure. # Hematuria -Patient reportedly has had bouts of hematuria in the setting of indwelling urinary catheter and glomerulonephritis as discussed above. # Chronic iron deficiency anemia. -Treated with IV iron. Patient has received multiple units blood transfusion this admission. Hemoglobin 7.8 after 1 unit prbc 08/02/24 # Physical deconditioning # Traumatic rhabdomyolysis # History of fall. -Patient has had progressive weakness, history of fall. Patient noted to have traumatic rhabdomyolysis on admission which is resolved. Physical therapy evaluation completed, recommending inpatient rehab upon discharge. # Disposition -plan for rehab placement after the procedure tomorrow. ICC aware. Total time spent 35 minutes doing chart review, interviewing patient, gathering information, performing physical exam, formulating plan, explaining management plan to patient, coordinating care with specialists, coordinating care with RN, documentation and placing orders. * Chencho Wayne MD - 08/04/2024 12:13 PM EST Images from the original note were not included. Progress Note CHIEF COMPLAINT F/u re; RENE HD dependent with ANCA RPGN SUBJECTIVE Patient seen and examined today and she feels better MEDICAL HISTORY Past Medical History: Diagnosis Date Anemia Arthritis Blindness Decreased vision 11/29/2014 DX:Decreased vision Diabetes mellitus, type 2 (CMS/HCC) 02/14/2014 DX:Diabetes mellitus, type 2 ([facility]) DVT, lower extremity ([facility]) LEFT LEG Family history of early CAD 03/01/2014 DX:Family history of early CAD Family history of factor V Leiden mutation 12/12/2015 DX:Family history of factor V Leiden mutation History of renal dialysis CURRENT VIA [facility] (hearing loss) Hyperlipidemia 02/14/2014 DX:Hyperlipidemia Hypertension 02/14/2014 DX:Hypertension Joint pain Lung nodule Microalbuminuria 09/22/2016 DX:Microalbuminuria Osteoporosis 02/14/2014 DX:Osteoporosis MEDICATIONS [Held by provider] apixaban, 10 mg, oral, BID [Held by provider] apixaban, 5 mg, oral, BID atorvastatin, 10 mg, oral, Nightly B complex-vitamin C-folic acid, 1 each, oral, Daily docusate sodium, 100 mg, oral, BID insulin glargine, 10 Units, subcutaneous, Nightly insulin lispro, 1-6 Units, subcutaneous, Before meals & nightly insulin lispro, 3 Units, subcutaneous, TID AC pantoprazole, 40 mg, oral, q AM AC polyetheylene glycol, 17 g, oral, Daily predniSONE, 60 mg, oral, Daily sodium chloride, 10 mL, intravenous, BID sodium chloride, 10 mL, intravenous, BID sulfamethoxazole-trimethoprim, 160 mg, oral, Once per day on Thursday thiamine, 100 mg, oral, Daily PRN medications: acetaminophen, acetaminophen, albuterol, benzonatate, dextrose 50%, dextrose 50%, dextrose, dextrose, diphenhydrAMINE, diphenhydrAMINE, EPINEPHrine, famotidine, glucagon injection, hydrALAZINE, hydrocortisone sodium succinate, HYDROmorphone, naloxone, ondansetron, oxyCODONE, artificial tears, sodium chloride, Insert peripheral IV AND Maintain IV access AND Saline lock IV AND sodium chloride AND sodium chloride, [COMPLETED] Insert Midline AND Maintain IV access AND Saline lock IV AND sodium chloride AND sodium chloride, sodium chloride, sodium chloride, sodium chloride, sodium chloride OBJECTIVE Vital signs in last 24 hours: Visit Vitals BP 136/60 (BP Location: Left arm, Patient Position: Lying) Pulse 90 Temp 36.9 ??C (98.4 ??F) (Temporal) Resp 16 Intake/Output last 24 hours: Intake/Output Summary (Last 24 hours) at 08/04/2024 1214 Last data filed at 08/04/2024 1100 Gross per 24 hour Intake 250 ml Output 2500 ml Net -2250 ml Weights: Admission Weight: Weight: 72.6 kg (160 lb) Wt Readings from Last 3 Encounters: 08/04/24 71.4 kg (157 lb 4.8 oz) 06/17/24 76.2 kg (168 lb) 06/13/24 76.5 kg (168 lb 9.6 oz) Physical Exam: General: No acute distress HEENT: Normocephalic, atraumatic, anicteric Cardiovascular: S1 S2 normal Respiratory: unlabored Gl: soft non-distended Extremities: No cyanosis Neurological: Alert Integumentary: no rash Psych: Calm, cooperative LABS Results from last 7 days Lab Units 08/03/24 0849 08/03/24 0601 08/02/24 0606 WBC AUTO K/mcL 8.5 7.5 8.0 HEMOGLOBIN g/dL 7.7* 7.8* 7.0* HEMATOCRIT % 24.6* 24.7* 22.9* MCV FL 84.2 85.8 84.2 PLATELETS K/mcL 186 188 205 Results from last 7 days Lab Units 08/04/24 0631 08/01/24 0659 07/31/24 0543 07/29/24 0554 CREATININE mg/dL 2.49* 4.62* 3.73* 3.73* BUN mg/dL -- 71* 54* 49* SODIUM mmol/L -- 132* 132* 131* POTASSIUM mmol/L -- 4.7 4.4 4.2 CHLORIDE mmol/L -- 96 94* 95* CO2 mmol/L -- 30 31 31 Phosphorus Date Value Ref Range Status 08/03/2024 4.3 2.5 - 4.5 mg/dL Final 07/17/2024 2.9 2.5 - 4.5 mg/dL Final 07/15/2024 4.2 2.5 - 4.5 mg/dL Final PTH Date Value Ref Range Status 07/10/2024 10.5 (L) 18.5 - 88.0 pcg/mL Final 07/08/2024 6.5 (L) 18.5 - 88.0 pcg/mL Final Iron Date Value Ref Range Status 07/08/2024 20 (L) 40 - 150 mcg/dL Final Comment: Hemolysis present 05/31/2024 14 (L) 40 - 150 mcg/dL Final TIBC Date Value Ref Range Status 07/08/2024 186 (L) 250 - 450 mcg/dL Final 05/31/2024 278 250 - 450 mcg/dL Final Ferritin Date Value Ref Range Status 07/08/2024 708 (H) 8 - 252 ng/mL Final 05/31/2024 294 (H) 8 - 252 ng/mL Final No results found for: COLORUA , CLARITYUA , SPECGRAVUA , PHUA , PROTUA , GLUCOSEUA , KETONESUA , BILIRUBINUA , BLOODUA , UROBILINOGUA , NITRITEUA IMPRESSION and PLAN RENE ANCA pos Granulomatosis with polyangiitis (GP?) Hyponatremia Anemia CKD 3 S/p Rituximab infusion (700 mg) 07/30/24 S/p IV pulse steroid on oral prednisone Preliminary kidney biopsy result (07/22) c/w crescentic necrotizing glomerulonephritis High PR3 c/w granulomatosis with polyangiitis (GP?) RENE remains HD dependent with no sign of recovery yet No obstruction by renal US Significant proteinuria MAC 3.6 mg/g No M spike on SPEP Negative hepatitis B surface Ag Low C3 Normal C4 MPO Ab negative PR3 Ab positive 165 Scr ~ 1.13 mg/dl on 01/24 Nephrogenic anemia Iron deficiency REC Rituximab infusion in 2 weeks from the date of last dose-dose given on 07/30/2024 Next dose on August 12 HD MWF Optimize volume status C/w prednisone 60 mg daily ( started 07/24)-will continue the same dose-this dose will continue for about 4 to 6 weeks and will be tapered by the air intelligence officer Continue PPI in the outpatient setting if patient is on prednisone Continue Bactrim DS in the outpatient setting thrice weekly (-) as patient is immunosuppressed Lung mass biopsy with Dr. Montez tomorrow Renal diet Outpatient HD arranged at [facility] m-w-f 1st shift [phone])-chair on hold since July 21. I have given orders for the patient to start on Thursday Patient for discharge to [facility] Discussed with medical team. Patient to get transfused today Will follow [facility] team From renal standpoint patient can be discharged tomorrow or on Thursday The outpatient facility needs to arrange for rituximab infusion on August 11 or at [facility] outpatient infusion-they can touch base with the renal MD covering for [place] for that shift for orders and dosage Discussed with the medical team/outpatient dialysis nursing staff and showcase maker Chencho Wayne MD * Isidra Florence - 08/04/2024 9:38 AM EST [facility] Physical Therapy Treatment PT Discharge Recommendations: Inpatient rehab facility placement, correction facility placement Equipment Recommended: rolling walker Staff Recommendations for safe patient handling: min/modA transfers/bed mob Precautions Medical Precautions: Fall Risk Safety Interventions: Call chavarria within reach, ID band on, Bed alarm RUE Weight Bearing Status: Full LUE Weight Bearing Status: Full RLE Weight Bearing Status: Full LLE Weight Bearing Status: Full History of Present Illness: Patient is a 79 y.o. female admitted to [facility] on 07/08/2024 with: Patient Active Problem List Diagnosis Hypertension Hyperlipidemia History of cancer of unknown primary site CKD (chronic kidney disease) stage 4, GFR 15-29 ml/min ([facility]) Iron deficiency anemia Impaired renal function Type 2 diabetes mellitus without complication, without long-term current use of insulin ([facility]) Lung mass Pulmonary nodule Fall prevention education provided including use of call light in hospital, use of appropriate assistive device, safe mobility techniques, and safety measures at home. Continue PT as per POC. Subjective Pt reports she was very nauseous last night and feels weak. Objective 08/04/24 0900 PT Last Visit PT Received On 08/04/24 PT Time Calculation PT Start Time 0900 PT Stop Time 0930 PT Time Calculation (min) 30 min Precautions Medical Precautions Fall Risk Safety Interventions Call chavarria within reach;ID band on;Bed alarm RUE Weight Bearing Status Full LUE Weight Bearing Status Full RLE Weight Bearing Status Full LLE Weight Bearing Status Full Oxygen Therapy Oxygen Therapy None (Room air) Pain Assessment Pain Assessment 0-10 Pain Score 4 Pain Type Chronic pain Pain Location Leg Pain Orientation Left Pain Descriptors Cramping Cognition Overall Cognitive Status WFL Arousal/Alertness Appropriate responses to stimuli Orientation Level Oriented X4 Following Commands Follows all commands and directions without difficulty Safety Judgment Good awareness of safety precautions Awareness of Errors Good awareness of errors made Activity Tolerance Endurance Tolerates 10 - 20 min exercise with multiple rests Static Sitting Balance Static Sitting-Level of Assistance Standby assistance Dynamic Sitting Balance Dynamic Sitting-Level of Assistance Contact guard Static Standing Balance Static Standing-Level of Assistance Contact guard Static Standing-Balance Support Right upper extremity supported;Left upper extremity supported Dynamic Standing Balance Dynamic Standing-Level of Assistance Minimum assistance Bed Mobility Rolling Right Assistance Minimum assistance Lying to Sitting Assistance Moderate assistance Transfers Sit to Stand Assistance Moderate assistance Chair/Bed to Chair/Bed Transfer Assistance Moderate assistance Ambulation Walking Assistance Minimum assistance Device Rolling walker Distance Ambulated (ft) 3 RLE Assessment RLE Assessment Impaired LLE Assessment LLE Assessment Impaired Procedures Procedures Therapeutic Activity Gait Training Gait Training Time Entry 30 Gait Training Activity 1 bed mobility to walker, attempted STS x2 before standing with modA, ambulated to commode 1ft. STS x2 to stand from commode due to leg cramping and LOB. Ambulated with walker and Elissa to chiar 2ft. Unsteady sitting abck into chair. Pt is very weak nd fatigued after treatment. PT Assessment PT Assessment Results Decreased strength;Impaired balance;Decreased endurance;Impaired gait;Decreased mobility Prognosis Good Evaluation/Treatment Tolerance Patient limited by fatigue Comments fatigue and L leg cramping Medical Staff Made Aware Yes Plan Treatment/Interventions Functional transfer training;LE strengthening/ROM;Endurance training;Bed mobility;Gait training PT Plan Skilled PT PT Frequency 2-5 days per week PT Discharge Recommendations Inpatient rehab facility placement;correction facility placement Equipment Recommended rolling walker PT - Evaluation Status Complete PT - OK to Discharge Yes Procedure/Treatment: Procedures Procedures: Therapeutic Activity Gait Training Gait Training Time Entry: 30 Gait Training Activity 1: bed mobility to walker, attempted STS x2 before standing with modA, ambulated to commode 1ft. STS x2 to stand from commode due to leg cramping and LOB. Ambulated with walkerand Elissa to chiar 2ft. Unsteady sitting abck into chair. Pt is very weak nd fatigued after treatment. Patient left sitting up in chair. RN notified of pt. status, location, response to treatment, and therapy recommendations. Physical Therapy Assessment/Plan PT Assessment PT Assessment Results: Decreased strength, Impaired balance, Decreased endurance, Impaired gait, Decreased mobility Prognosis: Good Evaluation/Treatment Tolerance: Patient limited by fatigue Comments: fatigue and L leg cramping Medical Staff Made Aware: Yes Comments: by the end of session, pt was very fatigued and needed max assist of 2 for transfers and limited mobility. (It was noted that pt had loose stools in coomode with thick blood ; nsg notified) Plan Treatment/Interventions: Functional transfer training, LE strengthening/ROM, Endurance training, Bed mobility, Gait training PT Plan: Skilled PT PT Frequency: 2-5 days per week PT Duration of Sessions: 15-30 min per session PT Treatments per day: 1 time per day PT Discharge Recommendations: Inpatient rehab facility placement, correction facility placement Equipment Recommended: rolling walker Barriers to Discharge: dizziness, impending kidney biopsy today PT - Evaluation Status: Complete PT - OK to Discharge: Yes Physical Therapy Goals/Education Pt will ambulate 25 ft with walker and CG. Education Documentation Body Mechanics, taught by Isidra Florence at 08/04/2024 9:37 AM. Learner: Patient Readiness: Acceptance Method: Demonstration, Explanation Response: Needs Reinforcement Precautions, taught by Isidra Florence at 08/04/2024 9:37 AM. Learner: Patient Readiness: Acceptance Method: Demonstration, Explanation Response: Needs Reinforcement Home Exercise Program, taught by Isidra Florence at 08/04/2024 9:37 AM. Learner: Patient Readiness: Acceptance Method: Demonstration, Explanation Response: Needs Reinforcement ADL Training, taught by Isidra Florence at 08/04/2024 9:37 AM. Learner: Patient Readiness: Acceptance Method: Demonstration, Explanation Response: Needs Reinforcement Home Exercise Program, taught by Isidra Florence at 08/04/2024 9:37 AM. Learner: Patient Readiness: Acceptance Method: Demonstration, Explanation Response: Needs Reinforcement Mobility Training, taught by Isidra Florence at 08/04/2024 9:37 AM. Learner: Patient Readiness: Acceptance Method: Demonstration, Explanation Response: Needs Reinforcement Education Comments No comments found. Isidra Florence Cosigned by Prisca Goldman PT at 08/04/2024 10:44 AM EST Associated attestation - Prisca Goldman, PT - 08/04/2024 10:44 AM EST Pt was integrally and physically involved in the decision making, delivery of interventions, and ongoing assessment during the pt's care session. * Nalini Caceres RN - 08/04/2024 9:17 AM EST This teletypewriter installer received a call from [facility] where they have had a dialysis STR bed open and are accepting and going for insurance auth. ICC notified provider and will follow for transfer once insurance auth obtained. * Nelli Schmidt, OT - 08/04/2024 8:30 AM EST [facility] Occupational Therapy Treatment Note DATE: July TIME IN: 0830 TIME OUT: 0900 Pt: Ana Contreras [phone] DISCHARGE RECS: Inpatient rehab facility placement, correction facility placement EQUIPMENT RECS: Walker-rolling SAFE PT HANDLING REC FOR STAFF: 1 person min assist with RW PRECAUTIONS: Precautions Medical Precautions: Fall Risk Safety Interventions: ID band on, Call chavarria within reach, Chair alarm RUE Weight Bearing Status: Full LUE Weight Bearing Status: Full RLE Weight Bearing Status: Full LLE Weight Bearing Status: Full ASSESSMENT: Pt participated in skilled OT session today. Patient engaged in self care, commode txfer. Patient was most limited today by fatigue, cramping in L LE. Patient verbalized understanding to education provided and responded appropriately to cues. Patient would continue to benefit from skilled acute care OT to address txfers, sit to stands, standing balance, ADLs, IADLs, endurance, strength, fxnl mobility. Subjective I'll try Objective 08/04/24 1106 OT Last Visit OT Received On 08/04/24 General Family/Caregiver Present No OT Time Calculation OT Start Time 0830 OT Stop Time 0900 OT Time Calculation (min) 30 min Precautions Medical Precautions Fall Risk Safety Interventions ID band on;Call chavarria within reach;Chair alarm RUE Weight Bearing Status Full LUE Weight Bearing Status Full RLE Weight Bearing Status Full LLE Weight Bearing Status Full Vital Signs Patient Identification Yes Pain Assessment Pain Assessment 0-10 Pain Score 4 Pain Type Chronic pain Pain Location Leg Pain Orientation Left Pain Descriptors Cramping ADLs/IADLs Self Care/Home Management (ADLs) Time Entry 30 Cognition Overall Cognitive Status WFL Other Activity Other Activity 1 pt completed bed mobility with min assist for slight assistance with trunk. Pt satEOB for approx 7 minutes SPV for safety. Pt completed sit to stand to RW with min assist for more than steadying assist. Pt side stepped to commode with RW with min assist. Pt completed toileting tasks with total assist requiring assistance with all tasks. Pt completed sit to stand to RW with min as sist. Pt side stepped to chair approx 5 steps with min assist. Call chavarria within reach. OT Assessment OT Assessment Results Decreased ADL status;Decreased endurance;Decreased functional mobility;Decreased gross motor control;Decreased fine motor control Prognosis Good Evaluation/Treatment Tolerance Patient tolerated treatment well Plan Treatment Interventions ADL retraining;Functional transfer training;UE strengthening/ROM;Endurance training OT Plan Skilled OT OT Frequency 2-5 days per week OT Duration of Sessions 30-60 min per session OT Treatments per day 1 time per day OT - Evaluation Status Complete OT Discharge Recommendations Inpatient rehab facility placement;correction facility placement Equipment Recommended Walker-rolling ADDITIONAL COMMENTS: Chart reviewed. RN clears pt for session. Pt agrees to participate and received supine with HOB elevated. All lines in place. Medical precautions observed appropriately. Patient educated on Role of OT and ADL Techniques and Safety . Fair verbal understanding and returndemonstration. Additional education and training recommended. EXIT STATUS: Session ended with patient sitting in chair. Needs in reach. RN notified. Assessment & Plan EDUCATION Education Documentation Body Mechanics, taught by Nelli Schmidt OT at 08/04/2024 11:10 AM. Learner: Patient Readiness: Acceptance Method: Explanation Response: Verbalizes Understanding ADL Training, taught by Nelli Schmidt OT at 08/04/2024 11:10 AM. Learner: Patient Readiness: Acceptance Method: Explanation Response: Verbalizes Understanding Education Comments No comments found. Encounter Problems Encounter Problems (Active) Template: Occupational Therapy Problem: Dressings Lower Extremities Goal: Patient will complete lower body dressing Dates: Start: 07/11/24 Expected End: 07/15/24 Description: Goal Type: STG, Performance Level: Supervision Outcomes Date/Time User Outcome 08/01/24321 Katina Mendez RN Not Progressing Problem: OT Short Term Goals Dates: Start: 08/01/24 Goal: pt will complete toileting tasks max assist Dates: Start: 08/01/24 Expected End: 08/08/24 Goal: pt will complete sit to stand with CGA to RW Dates: Start: 08/01/24 Expected End: 08/08/24 Problem: Transfers Goal: Patient will perform toilet transfer Dates: Start: 07/11/24 Expected End: 07/15/24 Description: Goal Type: STG, Performance Level: mod I Outcomes Date/Time User Outcome 08/01/24321 Katina Mendez RN Not Progressing Encounter Problems (Resolved) There are no resolved problems. Nelli Schmidt OT * Lindsay Lagos RN - 08/04/2024 5:47 AM EST Problem: Falls: Fall Risk (Adult IP BH) Goal: (Goal) Patient will experience maximum safety and reduce risk for falls. Outcome: Progressing Goal: Patient will not fall or injure themselves during hospitalization. Outcome: Progressing Goals: Identify possible barriers to meeting goals/advancing plan of care: pending snf auth and bronch thursday Stability of the patient: Moderately Stable - Low risk of patient condition declining or worsening End of Shift Summary: Pt is A& O x3, VSS, Bladder scan 185. No issue overnight. * Prisca Goldman PT - 08/03/2024 2:16 PM EST Therapy session was attempted for Ana Contreras by Prisca Goldman PT on 08/03/2024. The patient was unable to be seen for the following reason(s): Refused treatment and Other: had HD and is tired and had family visiting Plan for return visit: Tomorrow * Jacquelin Davidson RN - 08/03/2024 1:10 PM EST Goals: Identify possible barriers to meeting goals/advancing plan of care: pending snf auth and bronch thursday Stability of the patient: Moderately Stable - Low risk of patient condition declining or worsening End of Shift Summary: * Louis Welch RN - 08/03/2024 12:21 PM EST 08/03/24 1221 Vital Signs Temp 36.1 ??C (97 ??F) Temp Source Temporal Heart Rate 60 Resp 18 BP (!) 153/70 MAP (Calculated) 98 mm Hg BP Location Left arm Patient Position Lying SpO2 100 % Post-Hemodialysis Assessment Rinseback Volume (mL) 150 mL Total Liters Processed (L/min) 83.6 L/min Dialyzer Clearance Lightly streaked Duration of Treatment (minutes) 240 minutes Hemodialysis Output (mL) 2000 mL Patient Response to Treatment/Comments Pt tolerated 4.0 hr HD tx well. 2.0 L net fluid removed. No new complaints. Pt stable post-tx and at transport back to room. Report given to primary nurse Jacquelin Davidson RN. Next Hemodialysis tx Thursday08/05/2024 Weight 73.3 kg (161 lb 9.6 oz) * Tarsha Corea RN - 08/03/2024 12:12 PM EST 08/03/24 1211 Initial Transition Plan Initial Transition Plan Inpatient Rehab Back up Transition Plan Back up Transition plan Senior Living Facility Anticipated Discharge Needs Discipline following for SNF placement Artillery Maintenance Supervisor DANITZA: 08/06 Barriers: Accepting SNF w HD, Bronch w lung mass bx re-scheduled 08/05, ability to stand/pivot for family to transport to HD. Plan: ACR vs SNF pending accepting facility with HD and or ability to transport to [facility]. [facility] can only continue to hold OPT HD slot until 08/05. [facility] s/w family and updated on MARY[facility] options. [facility] Artillery Maintenance Supervisor, , called [facility] and will attempt to assist with MARYSE planning. Thoracic Plan: endoscopy with EBUS. This has been scheduled for 07/27/2024 with thoracic surgery andrescheduled to be done on 08/05/2024. Currently, no accepting facilities for HD and STR. * Steve Cruz MD - 08/03/2024 11:48 AM EST Images from the original note were not included. SONYA PROGRESS NOTE Date: 08/03/2024 Author: Steve Cruz MD Patient ID: Ana Contreras is a 79 y.o. female : 1945 MR#: [id number] SUBJECTIVE Subjective Patient seen by the bedside this morning No acute events overnight. Allergies Patient has no known allergies. Current Medications: [Held by provider] apixaban, 10 mg, oral, BID [Held by provider] apixaban, 5 mg, oral, BID atorvastatin, 10 mg, oral, Nightly B complex-vitamin C-folic acid, 1 each, oral, Daily docusate sodium, 100 mg, oral, BID insulin glargine, 10 Units, subcutaneous, Nightly insulin lispro, 1-6 Units, subcutaneous, Before meals & nightly insulin lispro, 3 Units, subcutaneous, TID AC pantoprazole, 40 mg, oral, q AM AC polyetheylene glycol, 17 g, oral, Daily predniSONE, 60 mg, oral, Daily sodium chloride, 10 mL, intravenous, BID sodium chloride, 10 mL, intravenous, BID sulfamethoxazole-trimethoprim, 160 mg, oral, Once per day on Thursday thiamine, 100 mg, oral, Daily PRN medications: acetaminophen, acetaminophen, albuterol, benzonatate, dextrose 50%, dextrose 50%, dextrose, dextrose, diphenhydrAMINE, diphenhydrAMINE, EPINEPHrine, famotidine, glucagon injection, hydrALAZINE, hydrocortisone sodium succinate, HYDROmorphone, naloxone, ondansetron, oxyCODONE, artificial tears, sodium chloride, sodium chloride, Insert peripheral IV AND Maintain IV access AND Saline lock IV AND sodium chloride AND sodium chloride, [COMPLETED] Insert Midline ANDMaintain IV access AND Saline lock IV AND sodium chloride AND sodium chloride, sodium chloride, sodium chloride, sodium chloride, sodium chloride OBJECTIVE Vitals: 08/03/24 1030 08/03/24 1045 08/03/24 1100 08/03/24 1115 BP: (!) 143/64 (!) 155/67 (!) 153/71 (!) 154/70 BP Location: Patient Position: Pulse: 86 81 62 66 Resp: Temp: TempSrc: SpO2: Weight: Height: Physical Exam Constitutional: General: She is not in acute distress. Appearance: Normal appearance. She is not toxic-appearing. HENT: Head: Normocephalic and atraumatic. Eyes: Conjunctiva/sclera: Conjunctivae normal. Cardiovascular: Rate and Rhythm: Normal rate and regular rhythm. Pulses: Normal pulses. Heart sounds: Normal heart sounds. Pulmonary: Effort: Pulmonary effort is normal. No respiratory distress. Breath sounds: Normal breath sounds. Abdominal: General: Bowel sounds are normal. There is no distension. Palpations: Abdomen is soft. Neurological: Mental Status: She is alert. Mental status is at baseline. Psychiatric: Mood and Affect: Mood normal. Behavior: Behavior normal. LABS HEMATOLOGY Lab Results Component Value Date WBC 8.5 08/03/2024 HGB 7.7 (L) 08/03/2024 HCT 24.6 (L) 08/03/2024 MCV 84.2 08/03/2024 PLT 186 08/03/2024 CHEMISTRY Lab Results Component Value Date GLUCOSE 241 (H) 08/02/2024 NA 132 (L) 08/01/2024 K 4.7 08/01/2024 CO2 30 08/01/2024 CL 96 08/01/2024 BUN 71 (H) 08/01/2024 CREATININE 4.62 (H) 08/01/2024 EGFR 9 (L) 08/01/2024 CALCIUM 8.6 08/01/2024 MG 2.1 08/03/2024 PHOS 4.3 08/03/2024 ANIONGAP 6 08/01/2024 Imaging: IR Bx Ndl Renal Perc Left Narrative: INDICATION: Acute renal failure PROCEDURE: Consent obtained for CT guided random core renal biopsy under conscious sedation. prior relevant studies: PET/CT from May 03, 2024 MEDICATIONS: Local anesthesia: 8 cc of 1% buffered lidocaine administered subcutaneously. Sedation: Moderate intravenous sedation was initiated and maintained for 30 minutes while the patient was independently monitored by the radiology nurse under the supervision of the interventional radiologist. A total of 1.5 mg of Versed and 50 mcg of fentanyl administered during the procedure. Scanner: [employer] [address] Dose reduction technique: AEC (automated exposure control) Dose: total exam DLP 373 mGY per cm TECHNIQUE: Patient placed prone on the CT table and multiple axial images obtained through the kidneys. Appropriate area the skin overlying the left kidney was marked, draped and prepped using maximum sterile barrier. Moderate sedation initiated with administration of local anesthetic. Under CT fluo roscopic guidance a 17-gauge coaxial needle was advanced into the periphery of the localized kidney. 3 18-gauge core biopsy samples obtained. Gelfoam slurry was injected through the coaxial needle along the perinephric space. FINDINGS: Initial limited CT images of the abdomen demonstrate normal-sized kidneys bilaterally. Left lower pole localized for biopsy. Images obtained during localization and needle positioning demonstrate coaxial needle positioned within the periphery of the localized kidney. Images obtained after biopsy demonstrate no significant postbiopsy hemorrhage. Gelfoam slurry notedalong the liver capsule at site of needle insertion. SPECIMENS: Core biopsy samples placed in sterile saline and sent to the pathology department. Impression: CT-guided random core renal biopsy using coaxial technique. -------- FINAL REPORT -------- Dictated By: Fela Palomo Dictated Date: 07/22/2024 16:58 ET Assigned Physician: Fela Palomo Reviewed and Electronically Signed By: Fela Palomo Signed Date: 07/22/2024 17:00 ET Workstation ID: [id number] Transcribed By: Self Edit Transcribed Date: 07/22/2024 16:58 ET ASSESSMENT & PLAN Patient is 79 years old female with past medical history significant for type 2 diabetes, hypertension, chronic kidney disease stage IV, iron deficiency anemia, dyslipidemia, lung nodule brought to the [facility] after wellness check was called to police by her daughter. Patient was foundon the ground unable to get up and was confused. Patient admitted to medical floors for further management of chronic kidney disease, metabolic encephalopathy. # Acute on chronic kidney injury, crescentic glomerulonephritis requiring hemodialysis. -Patient is on hemodialysis Thursday. On prednisone, Bactrim every Thursday. Per air intelligence officer patient's kidney biopsy consistent with crescentic glomerulonephritis. Rituximab given on 07/28/2024. Next dose in 2 weeks. Patient is being followed by air intelligence officer for hemodia lysis. # Right upper lobe pulmonary nodule -Noted by the previous provider. Patient has had CT-guided biopsy on 05/23/2024 which was nondiagnostic. Patient has been referred to thoracic surgery team and planned for endoscopy with EBUS. This has been scheduled for 07/27/2024 with thoracic surgery. This has been postponed and rescheduled to bedone on 08/05/2024. Dr. Montez recommends holding Eliquis 48 hours prior to the procedure and okay toDC to rehab for now. Awaiting placement # Left lower extremity DVT. -Vascular ultrasound lower extremity bilateral on 07/16/2024 showed occlusive clot left mid to posterior tibial vein. -Patient has been started on oral Eliquis 10 mg twice daily. Currently held in preparation for the EBUS Thursday. # Acute metabolic encephalopathy, resolved -Present on admission, CT brain negative. Patient is alert and awake, not confused. Encephalopathy likely in the setting of renal failure. # Hematuria -Patient reportedly has had bouts of hematuria in the setting of indwelling urinary catheter and glomerulonephritis as discussed above. # Chronic iron deficiency anemia. -Treated with IV iron. Patient has received multiple units blood transfusion this admission. Hemoglobin 7.8 after 1 unit prbc yesterday # Physical deconditioning # Traumatic rhabdomyolysis # History of fall. -Patient has had progressive weakness, history of fall. Patient noted to have traumatic rhabdomyolysis on admission which is resolved. Physical therapy evaluation completed, recommending inpatient rehab upon discharge. # Disposition -Pending SNF placement, barrier hemodialysis. Patient is stable for next level of care. Total time spent 35 minutes doing chart review, interviewing patient, gathering information, performing physical exam, formulating plan, explaining management plan to patient, coordinating care with specialists, coordinating care with RN, documentation and placing orders. * Chencho Wayne MD - 08/03/2024 10:37 AM EST Images from the original note were not included. Progress Note CHIEF COMPLAINT F/u re; RENE HD dependent with ANCA RPGN SUBJECTIVE Patient seen and examined on dialysis today hello MEDICAL HISTORY Past Medical History: Diagnosis Date Anemia Arthritis Blindness Decreased vision 11/29/2014 DX:Decreased vision Diabetes mellitus, type 2 (CMS/HCC) 02/14/2014 DX:Diabetes mellitus, type 2 (HCC) DVT, lower extremity (CMS/HCC) LEFT LEG Family history of early CAD 03/01/2014 DX:Family history of early CAD Family history of factor V Leiden mutation 12/12/2015 DX:Family history of factor V Leiden mutation History of renal dialysis CURRENT [facility]IA [facility] (hearing loss) Hyperlipidemia 02/14/2014 DX:Hyperlipidemia Hypertension 02/14/2014 DX:Hypertension Joint pain Lung nodule Microalbuminuria 09/22/2016 DX:Microalbuminuria Osteoporosis 02/14/2014 DX:Osteoporosis MEDICATIONS [Held by provider] apixaban, 10 mg, oral, BID [Held by provider] apixaban, 5 mg, oral, BID atorvastatin, 10 mg, oral, Nightly B complex-vitamin C-folic acid, 1 each, oral, Daily docusate sodium, 100 mg, oral, BID insulin glargine, 10 Units, subcutaneous, Nightly insulin lispro, 1-6 Units, subcutaneous, Before meals & nightly insulin lispro, 3 Units, subcutaneous, TID AC pantoprazole, 40 mg, oral, q AM AC polyetheylene glycol, 17 g, oral, Daily predniSONE, 60 mg, oral, Daily sodium chloride, 10 mL, intravenous, BID sodium chloride, 10 mL, intravenous, BID sulfamethoxazole-trimethoprim, 160 mg, oral, Once per day on Thursday thiamine, 100 mg, oral, Daily PRN medications: acetaminophen, acetaminophen, albuterol, benzonatate, dextrose 50%, dextrose 50%, dextrose, dextrose, diphenhydrAMINE, diphenhydrAMINE, EPINEPHrine, famotidine, glucagon injection, hydrALAZINE, hydrocortisone sodium succinate, HYDROmorphone, naloxone, ondansetron, oxyCODONE, artificial tears, sodium chloride, sodium chloride, Insert peripheral IV AND Maintain IV access AND Saline lock IV AND sodium chloride AND sodium chloride, [COMPLETED] Insert Midline ANDMaintain IV access AND Saline lock IV AND sodium chloride AND sodium chloride, sodium chloride, sodium chloride, sodium chloride, sodium chloride OBJECTIVE Vital signs in last 24 hours: Visit Vitals BP (!) 143/64 Pulse 86 Temp 36.6 ??C (97.9 ??F) (Temporal) Resp 18 Intake/Output last 24 hours: Intake/Output Summary (Last 24 hours) at 08/03/2024 1040 Last data filed at 08/03/2024 0600 Gross per 24 hour Intake 618 ml Output 625 ml Net -7 ml Weights: Admission Weight: Weight: 72.6 kg (160 lb) Wt Readings from Last 3 Encounters: 08/03/24 73.2 kg (161 lb 4.8 oz) 06/17/24 76.2 kg (168 lb) 06/13/24 76.5 kg (168 lb 9.6 oz) Physical Exam: General: No acute distress HEENT: Normocephalic, atraumatic, anicteric Cardiovascular: S1 S2 normal Respiratory: unlabored Gl: soft non-distended Extremities: No cyanosis Neurological: Alert Integumentary: no rash Psych: Calm, cooperative LABS Results from last 7 days Lab Units 08/03/24 0849 08/03/24 0601 08/02/24 0606 WBC AUTO K/mcL 8.5 7.5 8.0 HEMOGLOBIN g/dL 7.7* 7.8* 7.0* HEMATOCRIT % 24.6* 24.7* 22.9* MCV FL 84.2 85.8 84.2 PLATELETS K/mcL 186 188 205 Results from last 7 days Lab Units 08/01/24 0659 07/31/24 0543 07/29/24 0554 CREATININE mg/dL 4.62* 3.73* 3.73* BUN mg/dL 71* 54* 49* SODIUM mmol/L 132* 132* 131* POTASSIUM mmol/L 4.7 4.4 4.2 CHLORIDE mmol/L 96 94* 95* CO2 mmol/L 31 Phosphorus Date Value Ref Range Status 08/03/2024 4.3 2.5 - 4.5 mg/dL Final 07/17/2024 2.9 2.5 - 4.5 mg/dL Final 07/15/2024 4.2 2.5 - 4.5 mg/dL Final PTH Date Value Ref Range Status 07/10/2024 10.5 (L) 18.5 - 88.0 pcg/mL Final 07/08/2024 6.5 (L) 18.5 - 88.0 pcg/mL Final Iron Date Value Ref Range Status 07/08/2024 20 (L) 40 - 150 mcg/dL Final Comment: Hemolysis present 05/31/2024 14 (L) 40 - 150 mcg/dL Final TIBC Date Value Ref Range Status 07/08/2024 186 (L) 250 - 450 mcg/dL Final 05/31/2024 278 250 - 450 mcg/dL Final Ferritin Date Value Ref Range Status 07/08/2024 708 (H) 8 - 252 ng/mL Final 05/31/2024 294 (H) 8 - 252 ng/mL Final No results found for: COLORUA , CLARITYUA , SPECGRAVUA , PHUA , PROTUA , GLUCOSEUA , KETONESUA , BILIRUBINUA , BLOODUA , UROBILINOGUA , NITRITEUA IMPRESSION and PLAN RENE ANCA pos Granulomatosis with polyangiitis (GP?) Hyponatremia Anemia CKD 3 S/p Rituximab infusion (700 mg) 07/30/24 S/p IV pulse steroid on oral prednisone Preliminary kidney biopsy result (07/22) c/w crescentic necrotizing glomerulonephritis High PR3 c/w granulomatosis with polyangiitis (GP?) RENE remains HD dependent with no sign of recovery yet No obstruction by renal US Significant proteinuria MAC 3.6 mg/g No M spike on SPEP Negative hepatitis B surface Ag Low C3 Normal C4 MPO Ab negative PR3 Ab positive 165 Scr ~ 1.13 mg/dl on 01/24 Nephrogenic anemia Iron deficiency REC Rituximab infusion in 2 weeks from the date of last dose-dose given on July 28. Next dose on August 11 HD MWF Optimize volume status C/w prednisone 60 mg daily ( started 07/24) PPI Bactrim DS thrice weekly (--) Lung mass biopsy with Dr. Montez Renal diet Outpatient HD arranged at [facility] m-w-f 1st shift [phone])-chair on hold since July 21. We need to know before Thursday if he can give away the chair and patient disposition Consider Kana Fernández or Maribeth if going to [facility] Discussed with medical team. Patient to get transfused today Will follow [facility] team If patient discharged before August 11 the outpatient facility needs to arrange for rituximab infusion on August 11 or Chencho Wayne MD * Nelli Schmidt OT - 08/03/2024 9:15 AM EST Therapy session was attempted for Ana Contreras by Nelli Schmidt OT on 08/03/2024. The patient wasunable to be seen for the following reason(s): Out of room at a medical procedure. Pt at dialysis Plan for return visit: As soon as possible * Katina Machuca RN - 08/03/2024 2:47 AM EST Goals: Problem: Falls: Fall Risk (Adult IP BH) Goal: (Goal) Patient will experience maximum safety and reduce risk for falls. Outcome: Progressing Problem: Balance Goal: Patient will demonstrate Intervention to enhance balance for safe completion of daily activities Outcome: Progressing Problem: Pain Goal: Patient will manage pain with the appropriate technique/Intervention Outcome: Progressing Identify possible barriers to meeting goals/advancing plan of care: on hd awaiting accepting snf Stability of the patient: Moderately Stable - Low risk of patient condition declining or worsening End of Shift Summary: vss comfortable night. Pt still not able to void * Isidra Florence - 08/02/2024 2:31 PM EST [facility] Physical Therapy Treatment PT Discharge Recommendations: Inpatient rehab facility placement, correction facility placement Equipment Recommended: rolling walker Staff Recommendations for safe patient handling: modA for transfers/bed mobility Precautions Medical Precautions: Fall Risk Safety Interventions: Call chavarria within reach, ID band on, Chair alarm RUE Weight Bearing Status: Full LUE Weight Bearing Status: Full RLE Weight Bearing Status: Full LLE Weight Bearing Status: Full History of Present Illness: Patient is a 79 y.o. female admitted to [facility] on 07/08/2024 with: Patient Active Problem List Diagnosis Hypertension Hyperlipidemia History of cancer of unknown primary site CKD (chronic kidney disease) stage 4, GFR 15-29 ml/min ([facility]) Iron deficiency anemia Impaired renal function Type 2 diabetes mellitus without complication, without long-term current use of insulin ([facility]) Lung mass Pulmonary nodule Fall prevention education provided including use of call light in hospital, use of appropriate assistive device, safe mobility techniques, and safety measures at home. Continue PT as per POC. Subjective I am feeling tired today from dialysis yesterday. Objective 08/02/24 1300 PT Last Visit PT Received On 08/02/24 PT Time Calculation PT Start Time 1300 PT Stop Time 1330 PT Time Calculation (min) 30 min Precautions Medical Precautions Fall Risk Safety Interventions Call chavarria within reach;ID band on;Chair alarm RUE Weight Bearing Status Full LUE Weight Bearing Status Full RLE Weight Bearing Status Full LLE Weight Bearing Status Full Oxygen Therapy Oxygen Therapy None (Room air) Pain Assessment Pain Assessment No/denies pain Cognition Overall Cognitive Status WFL Arousal/Alertness Appropriate responses to stimuli Orientation Level Oriented X4 Following Commands Follows all commands and directions without difficulty Safety Judgment Good awareness of safety precautions Awareness of Errors Good awareness of errors made Activity Tolerance Endurance Tolerates 10 - 20 min exercise with multiple rests Static Sitting Balance Static Sitting-Level of Assistance Standby assistance Dynamic Sitting Balance Dynamic Sitting-Level of Assistance Contact guard Static Standing Balance Static Standing-Level of Assistance Contact guard Static Standing-Balance Support Right upper extremity supported;Left upper extremity supported Bed Mobility Rolling Right Assistance Minimum assistance Sitting to Lying Assistance Minimum assistance Lying to Sitting Assistance Minimum assistance Transfers Sit to Stand Assistance Moderate assistance Ambulation Walking Assistance Minimum assistance Device Rolling walker Distance Ambulated (ft) 1 Comments 2 side steps RLE Assessment RLE Assessment Impaired RLE Assessment Comments 3-/5 LLE Assessment LLE Assessment Impaired LLE Assessment Comments 3-/5 Procedures Procedures Therapeutic Activity Therapeutic Activity Therapeutic Activity Time Entry 30 Therapeutic Activity 1 bed mobility, STSx3 with 10sec holds, 2 side steps to reposition in bed, bedmobility back to supine PT Assessment PT Assessment Results Decreased strength;Decreased range of motion;Impaired balance;Decreased endurance;Impaired gait Prognosis Good Evaluation/Treatment Tolerance Patient limited by fatigue Comments pt has hgb of 7 today (cleared by nursing for PT)- waiting for blood transfusion, feeling fatigued Medical Staff Made Aware Yes Plan Treatment/Interventions Functional transfer training;LE strengthening/ROM;UE strengthening/ROM;Endurance training;Gait training;Bed mobility PT Plan Skilled PT PT Frequency 2-5 days per week PT Discharge Recommendations Inpatient rehab facility placement;correction facility placement Equipment Recommended rolling walker PT - Evaluation Status Complete PT - OK to Discharge Yes Procedure/Treatment: Procedures Procedures: Therapeutic Activity Therapeutic Activity Therapeutic Activity Time Entry: 30 Therapeutic Activity 1: bed mobility, STSx3 with 10sec holds, 2 side steps to reposition in bed, bed mobility back to supine Patient left lying supine in bed. RN notified of pt. status, location, response to treatment, and therapy recommendations. Physical Therapy Assessment/Plan PT Assessment PT Assessment Results: Decreased strength, Decreased range of motion, Impaired balance, Decreased endurance, Impaired gait Prognosis: Good Evaluation/Treatment Tolerance: Patient limited by fatigue Comments: pt has hgb of 7 today (cleared by nursing for PT)- waiting for blood transfusion, feelingfatigued Medical Staff Made Aware: Yes Comments: by the end of session, pt was very fatigued and needed max assist of 2 for transfers and limited mobility. (It was noted that pt had loose stools in coomode with thick blood ; nsg notified) Plan Treatment/Interventions: Functional transfer training, LE strengthening/ROM, UE strengthening/ROM, Endurance training, Gait training, Bed mobility PT Plan: Skilled PT PT Frequency: 2-5 days per week PT Duration of Sessions: 15-30 min per session PT Treatments per day: 1 time per day PT Discharge Recommendations: Inpatient rehab facility placement, correction facility placement Equipment Recommended: rolling walker Barriers to Discharge: dizziness, impending kidney biopsy today PT - Evaluation Status: Complete PT - OK to Discharge: Yes Physical Therapy Goals/Education Pt will walk 25 ft with walker with CG. - progressing Education Documentation Home Exercise Program, taught by Isidra Florence at 08/02/2024 2:30 PM. Learner: Patient Readiness: Acceptance Method: Explanation, Demonstration Response: Verbalizes Understanding, Demonstrated Understanding Mobility Training, taught by Isidra Florence at 08/02/2024 2:30 PM. Learner: Patient Readiness: Acceptance Method: Explanation, Demonstration Response: Verbalizes Understanding, Demonstrated Understanding Education Comments No comments found. Isidra Florence Cosigned by Kayla Amado, PT at 08/02/2024 2:58 PM EST Associated attestation - Kayla Amado, PT - 08/02/2024 2:58 PM EST PT was integrally and physically involved in the decision making, delivery of interventions and ongoing assessment during the patient's care session . * Alexia Rainey RN - 08/02/2024 2:26 PM EST ICC expanded search for Short term rehab facility that does inpatient dialysis * Steve Crzu MD - 08/02/2024 2:09 PM EST Images from the original note were not included. SONYA PROGRESS NOTE Date: 08/02/2024 Author: Steve Cruz MD Patient ID: Ana Contreras is a 79 y.o. female : 1945 MR#: [id number] SUBJECTIVE Subjective Patient seen by the bedside this morning No acute events overnight. Patient is comfortable appearing and not in distress. Denies any pain. Patient is waiting for SNF placement. Hb 7.0 today, will transfuse 1 unit today Allergies Patient has no known allergies. Current Medications: apixaban, 10 mg, oral, BID [START ON 08/06/2024] apixaban, 5 mg, oral, BID atorvastatin, 10 mg, oral, Nightly B complex-vitamin C-folic acid, 1 each, oral, Daily docusate sodium, 100 mg, oral, BID insulin glargine, 10 Units, subcutaneous, Nightly insulin lispro, 1-6 Units, subcutaneous, Before meals & nightly insulin lispro, 3 Units, subcutaneous, TID AC pantoprazole, 40 mg, oral, q AM AC polyetheylene glycol, 17 g, oral, Daily predniSONE, 60 mg, oral, Daily sodium chloride, 10 mL, intravenous, BID sodium chloride, 10 mL, intravenous, BID sulfamethoxazole-trimethoprim, 160 mg, oral, Once per day on Thursday thiamine, 100 mg, oral, Daily PRN medications: acetaminophen, acetaminophen, albuterol, benzonatate, dextrose 50%, dextrose 50%, dextrose, dextrose, diphenhydrAMINE, diphenhydrAMINE, EPINEPHrine, famotidine, glucagon injection, hydrALAZINE, hydrocortisone sodium succinate, HYDROmorphone, naloxone, ondansetron, oxyCODONE, artificial tears, sodium chloride, Insert peripheral IV AND Maintain IV access AND Saline lock IV AND sodium chloride AND sodium chloride, [COMPLETED] Insert Midline AND Maintain IV access AND Saline lock IV AND sodium chloride AND sodium chloride, sodium chloride, sodium chloride, sodium chloride, sodium chloride OBJECTIVE Vitals: 08/01/24 1942 08/02/24 0245 08/02/24 0600 08/02/24 0746 BP: (!) 158/58 (!) 147/61 137/56 BP Location: Left arm Left arm Left arm Patient Position: Lying Pulse: 81 88 88 Resp: 15 18 18 Temp: 36.4 ??C (97.6 ??F) 36.5 ??C (97.7 ??F) 36.6 ??C (97.9 ??F) TempSrc: Oral Oral Oral SpO2: 98% 99% 99% Weight: 72.5 kg (159 lb 12.8 oz) Height: Physical Exam Constitutional: General: She is not in acute distress. Appearance: Normal appearance. She is not toxic-appearing. HENT: Head: Normocephalic and atraumatic. Eyes: Conjunctiva/sclera: Conjunctivae normal. Cardiovascular: Rate and Rhythm: Normal rate and regular rhythm. Pulses: Normal pulses. Heart sounds: Normal heart sounds. Pulmonary: Effort: Pulmonary effort is normal. No respiratory distress. Breath sounds: Normal breath sounds. Abdominal: General: Bowel sounds are normal. There is no distension. Palpations: Abdomen is soft. Neurological: Mental Status: She is alert. Mental status is at baseline. Psychiatric: Mood and Affect: Mood normal. Behavior: Behavior normal. LABS HEMATOLOGY Lab Results Component Value Date WBC 8.0 08/02/2024 HGB 7.0 (L) 08/02/2024 HCT 22.9 (L) 08/02/2024 MCV 84.2 08/02/2024 PLT 205 08/02/2024 CHEMISTRY Lab Results Component Value Date GLUCOSE 153 (H) 08/02/2024 NA 132 (L) 08/01/2024 K 4.7 08/01/2024 CO2 30 08/01/2024 CL 96 08/01/2024 BUN 71 (H) 08/01/2024 CREATININE 4.62 (H) 08/01/2024 EGFR 9 (L) 08/01/2024 CALCIUM 8.6 08/01/2024 MG 2.2 07/17/2024 PHOS 2.9 07/17/2024 ANIONGAP 6 08/01/2024 Imaging: IR Bx Ndl Renal Perc Left Narrative: INDICATION: Acute renal failure PROCEDURE: Consent obtained for CT guided random core renal biopsy under conscious sedation. prior relevant studies: PET/CT from May 03, 2024 MEDICATIONS: Local anesthesia: 8 cc of 1% buffered lidocaine administered subcutaneously. Sedation: Moderate intravenous sedation was initiated and maintained for 30 minutes while the patient was independently monitored by the radiology nurse under the supervision of the interventional radiologist. A total of 1.5 mg of Versed and 50 mcg of fentanyl administered during the procedure. Scanner: [employer] [address] Dose reduction technique: AEC (automated exposure control) Dose: total exam DLP 373 mGY per cm TECHNIQUE: Patient placed prone on the CT table and multiple axial images obtained through the kidneys. Appropriate area the skin overlying the left kidney was marked, draped and prepped using maximum sterile barrier. Moderate sedation initiated with administration of local anesthetic. Under CT fluo roscopic guidance a 17-gauge coaxial needle was advanced into the periphery of the localized kidney. 3 18-gauge core biopsy samples obtained. Gelfoam slurry was injected through the coaxial needle along the perinephric space. FINDINGS: Initial limited CT images of the abdomen demonstrate normal-sized kidneys bilaterally. Left lower pole localized for biopsy. Images obtained during localization and needle positioning demonstrate coaxial needle positioned within the periphery of the localized kidney. Images obtained after biopsy demonstrate no significant postbiopsy hemorrhage. Gelfoam slurry notedalong the liver capsule at site of needle insertion. SPECIMENS: Core biopsy samples placed in sterile saline and sent to the pathology department. Impression: CT-guided random core renal biopsy using coaxial technique. -------- FINAL REPORT -------- Dictated By: Fela Palomo Dictated Date: 07/22/2024 16:58 ET Assigned Physician: Fela Palomo Reviewed and Electronically Signed By: Fela Palomo Signed Date: 07/22/2024 17:00 ET Workstation ID: [id number] Transcribed By: Self Edit Transcribed Date: 07/22/2024 16:58 ET ASSESSMENT & PLAN Patient is 79 years old female with past medical history significant for type 2 diabetes, hypertension, chronic kidney disease stage IV, iron deficiency anemia, dyslipidemia, lung nodule brought to the [facility] after wellness check was called to police by her daughter. Patient was foundon the ground unable to get up and was confused. Patient admitted to medical floors for further management of chronic kidney disease, metabolic encephalopathy. # Acute on chronic kidney injury, crescentic glomerulonephritis requiring hemodialysis. -Patient is on hemodialysis Thursday. On prednisone, Bactrim every Thursday. Per air intelligence officer patient's kidney biopsy consistent with crescentic glomerulonephritis. Rituximab given on 07/28/2024. Next dose in 2 weeks. Patient is being followed by air intelligence officer for hemodia lysis. # Right upper lobe pulmonary nodule -Noted by the previous provider. Patient has had CT-guided biopsy on 05/23/2024 which was nondiagnostic. Patient has been referred to thoracic surgery team and planned for endoscopy with EBUS. This has been scheduled for 07/27/2024 with thoracic surgery. This has been postponed and rescheduled to bedone on 08/05/2024. Dr. Montez recommends holding Eliquis 48 hours prior to the procedure and okay toDC to rehab for now. # Left lower extremity DVT. -Vascular ultrasound lower extremity bilateral on 07/16/2024 showed occlusive clot left mid to posterior tibial vein. -Patient has been started on oral Eliquis 10 mg twice daily. Stop after tonight's dose, in preparation for the EBUS Thursday. # Acute metabolic encephalopathy, resolved -Present on admission, CT brain negative. Patient is alert and awake, not confused. Encephalopathy likely in the setting of renal failure. # Hematuria -Patient reportedly has had bouts of hematuria in the setting of indwelling urinary catheter and glomerulonephritis as discussed above. # Chronic iron deficiency anemia. -Treated with IV iron. Patient has received multiple units blood transfusion this admission. Hemoglobin 7.0 today. Will transfuse 1 unit today # Physical deconditioning # Traumatic rhabdomyolysis # History of fall. -Patient has had progressive weakness, history of fall. Patient noted to have traumatic rhabdomyolysis on admission which is resolved. Physical therapy evaluation completed, recommending inpatient rehab upon discharge. # Disposition -Pending SNF placement, barrier hemodialysis. Patient is stable for next level of care. Total time spent 3 minutes doing chart review, interviewing patient, gathering information, performing physical exam, formulating plan, explaining management plan to patient, coordinating care with specialists, coordinating care with RN, documentation and placing orders. * Nelli Schmidt OT - 08/02/2024 1:35 PM EST [facility] Occupational Therapy Treatment Note DATE: Friday August 02, 2024 TIME IN: 1335 TIME OUT: 1405 Pt: Ana Contreras [id number] DISCHARGE RECS: Inpatient rehab facility placement, correction facility placement EQUIPMENT RECS: Walker-rolling SAFE PT HANDLING REC FOR STAFF: 1 person min assist with RW PRECAUTIONS: Precautions Medical Precautions: Fall Risk Safety Interventions: Call chavarria within reach, ID band on, Bed alarm RUE Weight Bearing Status: Full LUE Weight Bearing Status: Full RLE Weight Bearing Status: Full LLE Weight Bearing Status: Full ASSESSMENT: Pt participated in skilled OT session today. Patient engaged in therapeutic activity. Patient was most limited today by fatigue. Patient verbalized understanding to education provided andresponded appropriately to cues. Patient would continue to benefit from skilled acute care OT to address sit to stands, txfers, endurance, strength, ADLs, standing balance, fxnl mobility. Subjective I'll give it a try Objective 08/02/24 1414 OT Last Visit OT Received On 08/02/24 General Family/Caregiver Present No OT Time Calculation OT Start Time 1335 OT Stop Time 1405 OT Time Calculation (min) 30 min Precautions Medical Precautions Fall Risk Safety Interventions Call chavarria within reach;ID band on;Bed alarm RUE Weight Bearing Status Full LUE Weight Bearing Status Full RLE Weight Bearing Status Full LLE Weight Bearing Status Full Vital Signs Patient Identification Yes Oxygen Therapy Oxygen Therapy None (Room air) Pain Assessment Pain Assessment No/denies pain Pain Score 0 - No pain Therapeutic Activity Therapeutic Activity Time Entry 30 Therapeutic Activity 1 Pt completed bed mobility with min assist for slight support with trunk. pt sat EOB for approx 5 minutes with SPV for safety. Pt completed sit to stand to RW x3 trials with minassist for more than steadying assist. Pt stood for approx 15 seconds each time. pt took prolong seated rest break b/t each rep. Pt side stepped to HOB approx 3 steps with RW with min assist for morethan steadying assist. EOB to supine with min assist for slight assistance with lifting jeanine LEs onto bed. OT Assessment OT Assessment Results Decreased ADL status;Decreased upper extremity strength;Decreased endurance;Decreased fine motor control;Decreased functional mobility;Decreased gross motor control Prognosis Good Evaluation/Treatment Tolerance Patient limited by fatigue Plan Treatment Interventions ADL retraining;Functional transfer training;UE strengthening/ROM;Endurance training OT Plan Skilled OT OT Frequency 2-5 days per week OT Duration of Sessions 30-60 min per session OT Treatments per day 1 time per day OT - Evaluation Status Complete OT Discharge Recommendations Inpatient rehab facility placement;correction facility placement Equipment Recommended Walker-rolling ADDITIONAL COMMENTS: Chart reviewed. RN clears pt for session. Pt agrees to participate and received supine with HOB elevated. All lines in place. Medical precautions observed appropriately. Patient educated on Role of OT. Fair verbal understanding and return demonstration. Additional education and training recommended. EXIT STATUS: Session ended with patient supine with HOB elevated. Needs in reach. RN notified. Assessment & Plan EDUCATION Education Documentation Body Mechanics, taught by Nelli Schmidt OT at 08/02/2024 2:17 PM. Learner: Patient Readiness: Acceptance Method: Explanation Response: Verbalizes Understanding Education Comments No comments found. Encounter Problems Encounter Problems (Active) Template: Occupational Therapy Problem: Dressings Lower Extremities Goal: Patient will complete lower body dressing Dates: Start: 07/11/24 Expected End: 07/15/24 Description: Goal Type: STG, Performance Level: Supervision Outcomes Date/Time User Outcome 08/01/24 0322 Katina Mendez RN Not Progressing Problem: OT Short Term Goals Dates: Start: 08/01/24 Goal: pt will complete toileting tasks max assist Dates: Start: 08/01/24 Expected End: 08/08/24 Goal: pt will complete sit to stand with CGA to RW Dates: Start: 08/01/24 Expected End: 08/08/24 Problem: Transfers Goal: Patient will perform toilet transfer Dates: Start: 07/11/24 Expected End: 07/15/24 Description: Goal Type: STG, Performance Level: mod I Outcomes Date/Time User Outcome 08/01/24 0322 Katina Mendez RN Not Progressing Encounter Problems (Resolved) There are no resolved problems. Nelli Schmidt OT * Chencho Wayne MD - 08/02/2024 11:50 AM EST Images from the original note were not included. Progress Note CHIEF COMPLAINT F/u re; RENE HD dependent with ANCA RPGN SUBJECTIVE Patient seen and examined MEDICAL HISTORY Past Medical History: Diagnosis Date Anemia Arthritis Blindness Decreased vision 11/29/2014 DX:Decreased vision Diabetes mellitus, type 2 (CMS/HCC) 02/14/2014 DX:Diabetes mellitus, type 2 (HCC) DVT, lower extremity (CMS/HCC) LEFT LEG Family history of early CAD 03/01/2014 DX:Family history of early CAD Family history of factor V Leiden mutation 12/12/2015 DX:Family history of factor V Leiden mutation History of renal dialysis CURRENT VIA [facility] (hearing loss) Hyperlipidemia 02/14/2014 DX:Hyperlipidemia Hypertension 02/14/2014 DX:Hypertension Joint pain Lung nodule Microalbuminuria 09/22/2016 DX:Microalbuminuria Osteoporosis 02/14/2014 DX:Osteoporosis MEDICATIONS apixaban, 10 mg, oral, BID [START ON 08/06/2024] apixaban, 5 mg, oral, BID atorvastatin, 10 mg, oral, Nightly B complex-vitamin C-folic acid, 1 each, oral, Daily docusate sodium, 100 mg, oral, BID insulin glargine, 10 Units, subcutaneous, Nightly insulin lispro, 1-6 Units, subcutaneous, Before meals & nightly insulin lispro, 3 Units, subcutaneous, TID AC pantoprazole, 40 mg, oral, q AM AC polyetheylene glycol, 17 g, oral, Daily predniSONE, 60 mg, oral, Daily sodium chloride, 10 mL, intravenous, BID sodium chloride, 10 mL, intravenous, BID sulfamethoxazole-trimethoprim, 160 mg, oral, Once per day on Thursday thiamine, 100 mg, oral, Daily PRN medications: acetaminophen, acetaminophen, albuterol, benzonatate, dextrose 50%, dextrose 50%, dextrose, dextrose, diphenhydrAMINE, diphenhydrAMINE, EPINEPHrine, famotidine, glucagon injection, hydrALAZINE, hydrocortisone sodium succinate, HYDROmorphone, naloxone, ondansetron, oxyCODONE, artificial tears, sodium chloride, Insert peripheral IV AND Maintain IV access AND Saline lock IV AND sodium chloride AND sodium chloride, [COMPLETED] Insert Midline AND Maintain IV access AND Saline lock IV AND sodium chloride AND sodium chloride, sodium chloride, sodium chloride, sodium chloride OBJECTIVE Vital signs in last 24 hours: Visit Vitals BP 137/56 (BP Location: Left arm, Patient Position: Lying) Pulse 88 Temp 36.6 ??C (97.9 ??F) (Oral) Resp 18 Intake/Output last 24 hours: Intake/Output Summary (Last 24 hours) at 08/02/2024 1150 Last data filed at 08/01/2024 2000 Gross per 24 hour Intake 220 ml Output 2400 ml Net -2180 ml Weights: Admission Weight: Weight: 72.6 kg (160 lb) Wt Readings from Last 3 Encounters: 08/02/24 72.5 kg (159 lb 12.8 oz) 06/17/24 76.2 kg (168 lb) 06/13/24 76.5 kg (168 lb 9.6 oz) Physical Exam: General: No acute distress HEENT: Normocephalic, atraumatic, anicteric Cardiovascular: S1 S2 normal Respiratory: unlabored Gl: soft non-distended Extremities: No cyanosis Neurological: Alert Integumentary: no rash Psych: Calm, cooperative LABS Results from last 7 days Lab Units 08/02/24 0606 08/01/24 0659 07/31/24 1430 07/31/24 0543 WBC AUTO K/mcL 8.0 9.2 -- 7.4 HEMOGLOBIN g/dL 7.0* 7.7* 7.3* 6.7* HEMATOCRIT % 22.9* 25.2* 23.7* 22.0* MCV FL 84.2 84.6 -- 84.0 PLATELETS K/mcL 205 220 -- 183 Results from last 7 days Lab Units 08/01/24 0659 07/31/24 0543 07/29/24 0554 CREATININE mg/dL 4.62* 3.73* 3.73* BUN mg/dL 71* 54* 49* SODIUM mmol/L 132* 132* 131* POTASSIUM mmol/L 4.7 4.4 4.2 CHLORIDE mmol/L 96 94* 95* CO2 mmol/L 30 31 31 Phosphorus Date Value Ref Range Status 07/17/2024 2.9 2.5 - 4.5 mg/dL Final 07/15/2024 4.2 2.5 - 4.5 mg/dL Final 07/13/2024 3.0 2.5 - 4.5 mg/dL Final PTH Date Value Ref Range Status 07/10/2024 10.5 (L) 18.5 - 88.0 pcg/mL Final 07/08/2024 6.5 (L) 18.5 - 88.0 pcg/mL Final Iron Date Value Ref Range Status 07/08/2024 20 (L) 40 - 150 mcg/dL Final Comment: Hemolysis present 05/31/2024 14 (L) 40 - 150 mcg/dL Final TIBC Date Value Ref Range Status 07/08/2024 186 (L) 250 - 450 mcg/dL Final 05/31/2024 278 250 - 450 mcg/dL Final Ferritin Date Value Ref Range Status 07/08/2024 708 (H) 8 - 252 ng/mL Final 05/31/2024 294 (H) 8 - 252 ng/mL Final No results found for: COLORUA , CLARITYUA , SPECGRAVUA , PHUA , PROTUA , GLUCOSEUA , KETONESUA , BILIRUBINUA , BLOODUA , UROBILINOGUA , NITRITEUA IMPRESSION and PLAN RENE ANCA pos Granulomatosis with polyangiitis (GP?) Hyponatremia Anemia CKD 3 S/p Rituximab infusion (700 mg) 07/30/24 S/p IV pulse steroid on oral prednisone Preliminary kidney biopsy result (07/22) c/w crescentic necrotizing glomerulonephritis High PR3 c/w granulomatosis with polyangiitis (GP?) RENE remains HD dependent with no sign of recovery yet No obstruction by renal US Significant proteinuria MAC 3.6 mg/g No M spike on SPEP Negative hepatitis B surface Ag Low C3 Normal C4 MPO Ab negative PR3 Ab positive 165 Scr ~ 1.13 mg/dl on 01/24 Nephrogenic anemia Iron deficiency REC Rituximab infusion in 2 weeks from the date of last dose HD MWF Optimize volume status C/w prednisone 60 mg daily ( started 07/24) PPI Bactrim DS thrice weekly () Lung mass biopsy with Dr. Montez Renal diet Outpatient HD arranged at [facility] 1st shift [phone]) Consider [facility] or [facility] if going to SNF Discussed with medical team. Patient to get transfused today Will follow [facility] team Chencho Wayne MD * Katina Machuca RN - 08/02/2024 1:53 AM EST Goals: Problem: Falls: Fall Risk (Adult IP BH) Goal: (Goal) Patient will experience maximum safety and reduce risk for falls. Outcome: Progressing Goal: Patient will not fall or injure themselves during hospitalization. Outcome: Progressing Problem: Mobility Goal: Patient will demonstrate safe mobility requirements Outcome: Progressing Problem: Transfers Goal: Transfer from bed to chair. Outcome: Progressing Problem: Compromised Skin Integrity Goal: Patient will be free from infection Outcome: Progressing Goal: Patient will maintain/improve skin integrity through proper skin care techniques Outcome: Progressing Goal: Patient will demonstrate appropriate pressure relief techniques Outcome: Progressing Goal: Patient will demonstrate appropriate skin care techniques Outcome: Progressing Goal: Patient will maintain good skin integrity Outcome: Progressing Identify possible barriers to meeting goals/advancing plan of care: await dc to snf Stability of the patient: Moderately Stable - Low risk of patient condition declining or worsening End of Shift Summary: vss comfortable night.no c/o * Jose Lujan RN - 08/01/2024 5:24 PM EST 08/01/24 1645 Vital Signs Temp 36.5 ??C (97.7 ??F) Temp Source Temporal Heart Rate 80 Heart Rate Source Monitor Resp 16 BP (!) 153/81 MAP (Calculated) 105 mm Hg BP Method Automatic BP Location Left arm;Upper Patient Position Lying SpO2 100 % Post-Hemodialysis Assessment Rinseback Volume (mL) 150 mL Total Liters Processed (L/min) 72.2 L/min Dialyzer Clearance Clear Duration of Treatment (minutes) 180 minutes Hemodialysis Output (mL) 2000 mL Patient Response to Treatment/Comments Pt offers no complaints to tx. Weight (unable to obtain) Post HD. Pt completed 3hr tx (Per ok for 3hr tx). 2L removed. BFR 400. * Anthony Norton MD - 08/01/2024 5:10 PM EST Images from the original note were not included. Progress Note CHIEF COMPLAINT F/u re; RENE HD dependent with ANCA RPGN SUBJECTIVE Patient seen and examined during HD MEDICAL HISTORY Past Medical History: Diagnosis Date Anemia Arthritis Blindness Decreased vision 11/29/2014 DX:Decreased vision Diabetes mellitus, type 2 (CMS/HCC) 02/14/2014 DX:Diabetes mellitus, type 2 (HCC) DVT, lower extremity (CMS/HCC) LEFT LEG Family history of early CAD 03/01/2014 DX:Family history of early CAD Family history of factor V Leiden mutation 12/12/2015 DX:Family history of factor V Leiden mutation History of renal dialysis CURRENT VIA [facility] (hearing loss) Hyperlipidemia 02/14/2014 DX:Hyperlipidemia Hypertension 02/14/2014 DX:Hypertension Joint pain Lung nodule Microalbuminuria 09/22/2016 DX:Microalbuminuria Osteoporosis 02/14/2014 DX:Osteoporosis MEDICATIONS apixaban, 10 mg, oral, BID [START ON 08/06/2024] apixaban, 5 mg, oral, BID atorvastatin, 10 mg, oral, Nightly B complex-vitamin C-folic acid, 1 each, oral, Daily docusate sodium, 100 mg, oral, BID insulin glargine, 10 Units, subcutaneous, Nightly insulin lispro, 1-6 Units, subcutaneous, Before meals & nightly insulin lispro, 3 Units, subcutaneous, TID AC pantoprazole, 40 mg, oral, q AM AC polyetheylene glycol, 17 g, oral, Daily predniSONE, 60 mg, oral, Daily sodium chloride, 10 mL, intravenous, BID sodium chloride, 10 mL, intravenous, BID sulfamethoxazole-trimethoprim, 160 mg, oral, Once per day on Thursday thiamine, 100 mg, oral, Daily PRN medications: acetaminophen, acetaminophen, albuterol, benzonatate, dextrose 50%, dextrose 50%, dextrose, dextrose, diphenhydrAMINE, diphenhydrAMINE, EPINEPHrine, famotidine, glucagon injection, hydrALAZINE, hydrocortisone sodium succinate, HYDROmorphone, naloxone, ondansetron, oxyCODONE, artificial tears, sodium chloride, Insert peripheral IV AND Maintain IV access AND Saline lock IV AND sodium chloride AND sodium chloride, [COMPLETED] Insert Midline AND Maintain IV access AND Saline lock IV AND sodium chloride AND sodium chloride, sodium chloride, sodium chloride, sodium chloride OBJECTIVE Vital signs in last 24 hours: Visit Vitals BP (!) 153/81 (BP Location: Left arm;Upper, Patient Position: Lying) Pulse 80 Temp 36.5 ??C (97.7 ??F) (Temporal) Resp 16 Intake/Output last 24 hours: Intake/Output Summary (Last 24 hours) at 08/01/2024 1710 Last data filed at 08/01/2024 1645 Gross per 24 hour Intake 250 ml Output 2200 ml Net -1950 ml Weights: Admission Weight: Weight: 72.6 kg (160 lb) Wt Readings from Last 3 Encounters: 08/01/24 73.1 kg (161 lb 3.2 oz) 06/17/24 76.2 kg (168 lb) 06/13/24 76.5 kg (168 lb 9.6 oz) Physical Exam: General: No acute distress HEENT: Normocephalic, atraumatic, anicteric Cardiovascular: S1 S2 normal Respiratory: unlabored Gl: soft non-distended Extremities: No cyanosis Neurological: Alert Integumentary: no rash Psych: Calm, cooperative LABS Results from last 7 days Lab Units 08/01/24 0659 07/31/24 1430 07/31/24 0543 07/30/24 1532 07/30/24 0610 WBC AUTO K/mcL 9.2 -- 7.4 -- 8.0 HEMOGLOBIN g/dL 7.7* 7.3* 6.7* < > 7.2* HEMATOCRIT % 25.2* 23.7* 22.0* < > 23.9* MCV FL 84.6 -- 84.0 -- 83.6 PLATELETS K/mcL 220 -- 183 -- 176 < > = values in this interval not displayed. Results from last 7 days Lab Units 08/01/24 0659 07/31/24 0543 07/29/24 0554 CREATININE mg/dL 4.62* 3.73* 3.73* BUN mg/dL 71* 54* 49* SODIUM mmol/L 132* 132* 131* POTASSIUM mmol/L 4.7 4.4 4.2 CHLORIDE mmol/L 96 94* 95* CO2 mmol/L Phosphorus Date Value Ref Range Status 07/17/2024 2.9 2.5 - 4.5 mg/dL Final 07/15/2024 4.2 2.5 - 4.5 mg/dL Final 07/13/2024 3.0 2.5 - 4.5 mg/dL Final PTH Date Value Ref Range Status 07/10/2024 10.5 (L) 18.5 - 88.0 pcg/mL Final 07/08/2024 6.5 (L) 18.5 - 88.0 pcg/mL Final Iron Date Value Ref Range Status 07/08/2024 20 (L) 40 - 150 mcg/dL Final Comment: Hemolysis present 05/31/2024 14 (L) 40 - 150 mcg/dL Final TIBC Date Value Ref Range Status 07/08/2024 186 (L) 250 - 450 mcg/dL Final 05/31/2024 278 250 - 450 mcg/dL Final Ferritin Date Value Ref Range Status 07/08/2024 708 (H) 8 - 252 ng/mL Final 05/31/2024 294 (H) 8 - 252 ng/mL Final No results found for: COLORUA , CLARITYUA , SPECGRAVUA , PHUA , PROTUA , GLUCOSEUA , KETONESUA , BILIRUBINUA , BLOODUA , UROBILINOGUA , NITRITEUA IMPRESSION and PLAN RENE ANCA pos Granulomatosis with polyangiitis (GP?) Hyponatremia Anemia CKD 3 S/p Rituximab infusion (700 mg) 07/30/24 S/p IV pulse steroid on oral prednisone 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 Montez Renal diet Outpatient HD arranged at [facility] -w-f 1st shift [phone]) Consider Kana Fernández or [facility] if going to SNF Will follow [facility] team Anthony Norton MD * Steve Cruz MD - 08/01/2024 4:42 PM EST Images from the original note were not included. SONYA PROGRESS NOTE Date: 08/01/2024 Author: Steve Cruz MD Patient ID: Ana Contreras is a 79 y.o. female : 1945 MR#: [id number] SUBJECTIVE Subjective Patient seen by the bedside this morning No acute events overnight. Patient is comfortable appearing and not in distress. Denies any pain. Patient is waiting for SNF placement. Allergies Patient has no known allergies. Current Medications: apixaban, 10 mg, oral, BID [START ON 08/06/2024] apixaban, 5 mg, oral, BID atorvastatin, 10 mg, oral, Nightly B complex-vitamin C-folic acid, 1 each, oral, Daily docusate sodium, 100 mg, oral, BID insulin glargine, 10 Units, subcutaneous, Nightly insulin lispro, 1-6 Units, subcutaneous, Before meals & nightly insulin lispro, 3 Units, subcutaneous, TID AC pantoprazole, 40 mg, oral, q AM AC polyetheylene glycol, 17 g, oral, Daily predniSONE, 60 mg, oral, Daily sodium chloride, 10 mL, intravenous, BID sodium chloride, 10 mL, intravenous, BID sulfamethoxazole-trimethoprim, 160 mg, oral, Once per day on Thursday thiamine, 100 mg, oral, Daily PRN medications: acetaminophen, acetaminophen, albuterol, benzonatate, dextrose 50%, dextrose 50%, dextrose, dextrose, diphenhydrAMINE, diphenhydrAMINE, EPINEPHrine, famotidine, glucagon injection, hydrALAZINE, hydrocortisone sodium succinate, HYDROmorphone, naloxone, ondansetron, oxyCODONE, artificial tears, sodium chloride, Insert peripheral IV AND Maintain IV access AND Saline lock IV AND sodium chloride AND sodium chloride, [COMPLETED] Insert Midline AND Maintain IV access AND Saline lock IV AND sodium chloride AND sodium chloride, sodium chloride, sodium chloride, sodium chloride OBJECTIVE Vitals: 08/01/24 1545 08/01/24 1600 08/01/24 1615 08/01/24 1630 BP: (!) 153/77 (!) 152/83 (!) 152/81 (!) 158/82 BP Location: Patient Position: Pulse: 71 74 80 60 Resp: Temp: TempSrc: SpO2: Weight: Height: Physical Exam Constitutional: General: She is not in acute distress. Appearance: Normal appearance. She is not toxic-appearing. HENT: Head: Normocephalic and atraumatic. Eyes: Conjunctiva/sclera: Conjunctivae normal. Cardiovascular: Rate and Rhythm: Normal rate and regular rhythm. Pulses: Normal pulses. Heart sounds: Normal heart sounds. Pulmonary: Effort: Pulmonary effort is normal. No respiratory distress. Breath sounds: Normal breath sounds. Abdominal: General: Bowel sounds are normal. There is no distension. Palpations: Abdomen is soft. Neurological: Mental Status: She is alert. Mental status is at baseline. Psychiatric: Mood and Affect: Mood normal. Behavior: Behavior normal. LABS HEMATOLOGY Lab Results Component Value Date WBC 9.2 08/01/2024 HGB 7.7 (L) 08/01/2024 HCT 25.2 (L) 08/01/2024 MCV 84.6 08/01/2024 PLT 220 08/01/2024 CHEMISTRY Lab Results Component Value Date GLUCOSE 149 (H) 08/01/2024 NA 132 (L) 08/01/2024 K 4.7 08/01/2024 CO2 30 08/01/2024 CL 96 08/01/2024 BUN 71 (H) 08/01/2024 CREATININE 4.62 (H) 08/01/2024 EGFR 9 (L) 08/01/2024 CALCIUM 8.6 08/01/2024 MG 2.2 07/17/2024 PHOS 2.9 07/17/2024 ANIONGAP 6 08/01/2024 Imaging: IR Bx Ndl Renal Perc Left Narrative: INDICATION: Acute renal failure PROCEDURE: Consent obtained for CT guided random core renal biopsy under conscious sedation. prior relevant studies: PET/CT from May 03, 2024 MEDICATIONS: Local anesthesia: 8 cc of 1% buffered lidocaine administered subcutaneously. Sedation: Moderate intravenous sedation was initiated and maintained for 30 minutes while the patient was independently monitored by the radiology nurse under the supervision of the interventional radiologist. A total of 1.5 mg of Versed and 50 mcg of fentanyl administered during the procedure. Scanner: [employer] [address] Dose reduction technique: AEC (automated exposure control) Dose: total exam DLP 373 mGY per cm TECHNIQUE: Patient placed prone on the CT table and multiple axial images obtained through the kidneys. Appropriate area the skin overlying the left kidney was marked, draped and prepped using maximum sterile barrier. Moderate sedation initiated with administration of local anesthetic. Under CT fluo roscopic guidance a 17-gauge coaxial needle was advanced into the periphery of the localized kidney. 3 18-gauge core biopsy samples obtained. Gelfoam slurry was injected through the coaxial needle along the perinephric space. FINDINGS: Initial limited CT images of the abdomen demonstrate normal-sized kidneys bilaterally. Left lower pole localized for biopsy. Images obtained during localization and needle positioning demonstrate coaxial needle positioned within the periphery of the localized kidney. Images obtained after biopsy demonstrate no significant postbiopsy hemorrhage. Gelfoam slurry notedalong the liver capsule at site of needle insertion. SPECIMENS: Core biopsy samples placed in sterile saline and sent to the pathology department. Impression: CT-guided random core renal biopsy using coaxial technique. -------- FINAL REPORT -------- Dictated By: Fela Palomo Dictated Date: 07/22/2024 16:58 ET Assigned Physician: Fela Palomo Reviewed and Electronically Signed By: Fela Palomo Signed Date: 07/22/2024 17:00 ET Workstation ID: [id number] Transcribed By: Self Edit Transcribed Date: 07/22/2024 16:58 ET ASSESSMENT & PLAN Patient is 79 years old female with past medical history significant for type 2 diabetes, hypertension, chronic kidney disease stage IV, iron deficiency anemia, dyslipidemia, lung nodule brought to the [facility] after wellness check was called to police by her daughter. Patient was foundon the ground unable to get up and was confused. Patient admitted to medical floors for further management of chronic kidney disease, metabolic encephalopathy. # Acute on chronic kidney injury, crescentic glomerulonephritis requiring hemodialysis. -Patient is on hemodialysis Thursday. On prednisone, Bactrim every Thursday. Per air intelligence officer patient's kidney biopsy consistent with crescentic glomerulonephritis. Rituximab given on 07/28/2024. Next dose in 2 weeks. Patient is being followed by air intelligence officer for hemodia lysis. # Right upper lobe pulmonary nodule -Noted by the previous provider. Patient has had CT-guided biopsy on 05/23/2024 which was nondiagnostic. Patient has been referred to thoracic surgery team and planned for endoscopy with EBUS. This has been scheduled for 07/27/2024 with thoracic surgery. This has been postponed and rescheduled to bedone on 08/05/2024. Dr. Montez recommends holding Eliquis 48 hours prior to the procedure and okay toDC to rehab for now. # Left lower extremity DVT. -Vascular ultrasound lower extremity bilateral on 07/16/2024 showed occlusive clot left mid to posterior tibial vein. -Patient has been started on oral Eliquis 10 mg twice daily. # Acute metabolic encephalopathy, resolved -Present on admission, CT brain negative. Patient is alert and awake, not confused. Encephalopathy likely in the setting of renal failure. # Hematuria -Patient reportedly has had bouts of hematuria in the setting of indwelling urinary catheter and glomerulonephritis as discussed above. # Chronic iron deficiency anemia. -Treated with IV iron. Patient has received multiple units blood transfusion this admission. Hemoglobin 7.7 today. Monitor for further bleeding episodes. Transfuse if hemoglobin less than 7. # Physical deconditioning # Traumatic rhabdomyolysis # History of fall. -Patient has had progressive weakness, history of fall. Patient noted to have traumatic rhabdomyolysis on admission which is resolved. Physical therapy evaluation completed, recommending inpatient rehab upon discharge. # Disposition -Pending SNF placement, barrier hemodialysis. Patient is stable for next level of care. Total time spent 35 minutes doing chart review, interviewing patient, gathering information, performing physical exam, formulating plan, explaining management plan to patient, coordinating care with specialists, coordinating care with RN, documentation and placing orders. This dictation was performed using voice recognition software. Word substitution may have occurred and may have gone unnoticed and uncorrected * Melany Agarwal RN - 08/01/2024 12:08 PM EST Goals: Identify possible barriers to meeting goals/advancing plan of care: SNF placement Stability of the patient: Moderately Stable - Low risk of patient condition declining or worsening End of Shift Summary: patient repositioned,resting quietly, bed alarm on, call chavarria within reach * Florecita Camara, PT - 08/01/2024 11:00 AM EST [place], [place] Acute Care PT TREATMENT 08/01/2024 Patient Information Ana Contreras 1945 79 y.o. Ambulation: Walking Assistance: Minimum assistance Device: Rolling walker Distance Ambulated (ft): (5 steps to transfer bed to commode + 3 to 4 steps forward and 3 to 4 steps back with RW) PLOF: Level of [place]: Independent with mobility and functional transfers Lives With: Alone Type of Home: House Home Adaptive Equipment: Cane, Rollator Home Layout: One level Home Access: Stairs to enter without rails DME Needs: rolling walker PT Discharge Recommendation: Inpatient rehab facility placement Equipment Recommended: rolling walker Medical Diagnosis ICD-10-CM ICD-9-CM 1. Anemia, unspecified type D64.9 285.9 2. Hyponatremia E87.1 276.1 Tissue exam Tissue exam AP Kidney biopsy AP Kidney biopsy 3. Acute on chronic renal insufficiency N28.9 593.9 Tissue exam N18.9 585.9 Tissue exam AP Kidney biopsy AP Kidney biopsy 4. Acute encephalopathy G93.40 348.30 5. Bilateral leg edema R60.0 782.3 Vascular US duplex lower extremity venous bilateral Vascular US duplex lower extremity venous bilateral Tissue exam Tissue exam AP Kidney biopsy AP Kidney biopsy Rehabilitation Precautions/Restrictions Precautions Medical Precautions: Fall Risk Safety Interventions: Call chavarria within reach, ID band on, Chair alarm RUE Weight Bearing Status: Full LUE Weight Bearing Status: Full RLE Weight Bearing Status: Full LLE Weight Bearing Status: Full PT Session: PT Time Calculation PT Start Time: 1100 PT Stop Time: 1130 PT Time Calculation (min): 30 min SUBJECTIVE I feel fine OBJECTIVE Vitals/Pain: Oxygen Therapy Oxygen Therapy: None (Room air) Pain Assessment Pain Assessment: No/denies pain Pain Score: 0 - No pain General Assessments: Activity Tolerance Endurance: Tolerates 10 - 20 min exercise with multiple rests Static Standing Balance Static Standing-Level of Assistance: Contact guard Static Standing-Comment/Number of Minutes: fair- standing with RW Dynamic Standing Balance Dynamic Standing-Level of Assistance: Minimum assistance Dynamic Standing-Balance: Ambulation Dynamic Standing-Comments: fair with RW during gait Functional Assessments: Bed Mobility Rolling Right Assistance: Minimum assistance Transfers Sit to Stand Assistance: Moderate assistance Chair/Bed to Chair/Bed Transfer Assistance: Moderate assistance Ambulation Walking Assistance: Minimum assistance Device: Rolling walker Distance Ambulated (ft): (5 steps to transfer bed to commode + 3 to 4 steps forward and 3 to 4 steps back with RW) Comments: pt with forward flexed posture and fatigues easily Procedure/Treatment: Therapeutic Activity Therapeutic Activity Time Entry: 30 Therapeutic Activity 1: Pt sat up @ EOB and sat for few minutes prior to transfer to commode with RW. Mod asisst sit to stand and she took 5 steps to transfer to commode with RW. OT assisted her in cleaning and she was mod assist for sit to stand from commode with VCs tor hand placement. Pt then walked forward steps with RW with min assist so we could switch the commode and place the chair behindher. She took 3 to 4 steps back with RW before sitting down in chair. Tray table and call chavarria in front of her and nurse was notified of status. Education Education Documentation Home Exercise Program, taught by Florecita Camara, PT at 08/01/2024 11:00 AM. Learner: Patient Readiness: Acceptance Method: Explanation, Demonstration Response: Verbalizes Understanding, Needs Reinforcement Comment: safe sit to stand from bed or chair. rehab Mobility Training, taught by Florecita Camara PT at 08/01/2024 11:00 AM. Learner: Patient Readiness: Acceptance Method: Explanation, Demonstration Response: Verbalizes Understanding, Needs Reinforcement Comment: safe sit to stand from bed or chair. rehab Education Comments No comments found. ASSESSMENT Pt presents with forward flexed posture, decreased strength and assist of 1 for mobility. Recommendrehab to work on strength, balance and safe mobility. PT Assessment PT Assessment Results: Decreased strength, Impaired balance, Impaired gait, Decreased mobility Evaluation/Treatment Tolerance: Patient limited by fatigue Medical Staff Made Aware: Yes Equipment Equipment Received: Equipment Recommended: Rolling walker PLAN During acute care stay: PT Plan: Skilled PT PT Frequency: 2-5 days per week PT Treatments per day: 1 time per day Treatment/Interventions: Functional transfer training, Bed mobility, Gait training, Balance training PT Discharge Recommendations: Inpatient rehab facility placement Equipment Recommended: rolling walker PT Time Entry: Therapeutic Activity Time Entry: 30 * Nelli Schmidt OT - 08/01/2024 10:50 AM EST [facility] Occupational Therapy Treatment Note DATE: Thursday August 01, 2024 TIME IN: 1050 TIME OUT: 1125 Pt: Ana Contreras [id number] DISCHARGE RECS: correction facility placement, Inpatient rehab facility placement EQUIPMENT RECS: Walker-rolling (AE) SAFE PT HANDLING REC FOR STAFF: 1 person mod assist to RW. Pt able to pivot to bedside chair PRECAUTIONS: Precautions Medical Precautions: Fall Risk Safety Interventions: Call chavarria within reach, ID band on, Chair alarm RUE Weight Bearing Status: Full LUE Weight Bearing Status: Full RLE Weight Bearing Status: Full LLE Weight Bearing Status: Full ASSESSMENT: Pt participated in skilled OT session today. Patient engaged in self care tasks. Patient was most limited today by fatigue and weakness. Patient verbalized understanding to education provided and responded appropriately to cues. Patient would continue to benefit from skilled acute care OT to address Adls, endurance, strength, sit to stands, standing balance, fxnl mobility. Pt motivated to participate in session. Pt able to follow all commands t/o. Subjective Can I go to the bathroom? Objective 08/01/24 1127 OT Last Visit OT Received On 08/01/24 General Family/Caregiver Present No OT Time Calculation OT Start Time 1050 OT Stop Time 1125 OT Time Calculation (min) 35 min Precautions Medical Precautions Fall Risk Safety Interventions Call chavarria within reach;ID band on;Chair alarm RUE Weight Bearing Status Full LUE Weight Bearing Status Full RLE Weight Bearing Status Full LLE Weight Bearing Status Full Vital Signs Patient Identification Yes Oxygen Therapy Oxygen Therapy None (Room air) Pain Assessment Pain Assessment No/denies pain Pain Score 0 - No pain ADLs/IADLs Self Care/Home Management (ADLs) Time Entry 35 ADL/ IADL Performed Toilet Transfers;Toileting;Dressing LE Dressing Shoe Level of Assistance Dependent (assistance with all tasks) Toileting Toileting Level of Assistance Dependent (assistance with all tasks) Where Assessed Bedside commode Toilet Transfers Toilet Transfer From Rolling walker Toilet Transfer Type To and from Toilet Transfer to Standard bedside commode Toilet Transfer Technique Stand pivot Toilet Transfer Assistance Moderate assistance (assistance with lifting) Cognition Overall Cognitive Status WFL Arousal/Alertness Appropriate responses to stimuli Orientation Level Oriented X4 Following Commands Follows all commands and directions without difficulty Sensation Light Touch No apparent deficits Other Activity Other Activity 1 Upon approach, pt semi supine in bed. pt pleasant and agreeable to participate in session. Pt total assist with footwear tasks. Pt completed bed mobility with mod assist for trunk support. pt sat EOB for approx 5 minutes SPV for safety. pt completed sit to stand to RW with mod assist for lifting. pt side stepped with RW to bedside commode with mod assist. Pt required increase time to complete bowel movement. pt total assist with toileting tasks. Nurse made aware. Pt completed sit to stand to RW with mod assist for lifting x2 trials. pt took approx 3 steps forward with RW and 3 steps backward with min to mod assist. Pt sat in bedside chair with call chavarria within reach. Tray table within reach. Pt able to follow all commands t/o. pt motivated to participate in session. OT Assessment OT Assessment Results Decreased ADL status;Decreased upper extremity strength;Decreased endurance;Decreased fine motor control;Decreased functional mobility;Decreased gross motor control Prognosis Good Evaluation/Treatment Tolerance Patient tolerated treatment well Plan Treatment Interventions ADL retraining;Functional transfer training;UE strengthening/ROM;Endurance training OT Plan Skilled OT OT Frequency 2-5 days per week OT Duration of Sessions 30-60 min per session OT Treatments per day 1 time per day OT - Evaluation Status Complete OT Discharge Recommendations correction facility placement;Inpatient rehab facility placement Equipment Recommended Walker-rolling (AE) ADDITIONAL COMMENTS: Chart reviewed. RN clears pt for session. Pt agrees to participate and received supine with HOB elevated. All lines in place. Medical precautions observed appropriately. Patient educated on Role of OT and ADL Techniques and Safety . Fair verbal understanding and returndemonstration. Additional education and training recommended. EXIT STATUS: Session ended with patient sitting in chair. Needs in reach. RN notified. Assessment & Plan EDUCATION Education Documentation ADL Training, taught by Nelli Schmidt OT at 08/01/2024 11:33 AM. Learner: Patient Readiness: Eager Method: Explanation Response: Verbalizes Understanding Comment: Pt educated on hand placement on commode when completing transitional movements to ensure safety during task Education Comments No comments found. Encounter Problems Encounter Problems (Active) Template: Occupational Therapy Problem: Dressings Lower Extremities Goal: Patient will complete lower body dressing Dates: Start: 07/11/24 Expected End: 07/15/24 Description: Goal Type: STG, Performance Level: Supervision Outcomes Date/Time User Outcome 08/01/24 Chema Mendez RN Not Progressing Problem: OT Short Term Goals Dates: Start: 08/01/24 Goal: pt will complete toileting tasks max assist Dates: Start: 08/01/24 Expected End: 08/08/24 Goal: pt will complete sit to stand with CGA to RW Dates: Start: 08/01/24 Expected End: 08/08/24 Problem: Transfers Goal: Patient will perform toilet transfer Dates: Start: 07/11/24 Expected End: 07/15/24 Description: Goal Type: STG, Performance Level: mod I Outcomes Date/Time User Outcome 08/01/24 Chema Mendez RN Not Progressing Encounter Problems (Resolved) There are no resolved problems. Nelli Schmidt OT * Kayleigh Laguna RD - 08/01/2024 10:07 AM EST 08/01/2024 @ 10:07 AM EST Nutrition Follow Up Note Reason for RD Intervention: Assessment Type: Follow-up Anthropometrics: Height: 162.5 cm (63.98 ) Weight: 73.1 kg (161 lb 3.2 oz) Weight Method: Actual BMI (Calculated): 27.7 BMI Class: Overweight IBW (lbs): 120 Current Diet and Supplements: Dietary Orders (From admission, onward) Start Ordered 07/27/24 1332 Adult diet [facility]; General; Renal- Chronic Kidney Disease; Self-Select Meals Diet effective now Question Answer Comment Location [facility] Diet Type (req) General General Diet Renal- Chronic Kidney Disease Is the patient able to participate in meal ordering? Self-Select Meals 07/27/24 1332 07/11/24 1133 Dietary nutrition supplements Two times daily (BID); [facility]; Diabetic Supplement Continuous Question Answer Comment Frequency Two times daily (BID) Location [facility] Supplements Diabetic Supplement 07/11/24 1132 History of presenting illness: Patient is a 79 y.o. female with a history of Past Medical History: Diagnosis Date Anemia Arthritis Blindness Decreased vision 11/29/2014 DX:Decreased vision Diabetes mellitus, type 2 (CMS/HCC) 02/14/2014 DX:Diabetes mellitus, type 2 (HCC) DVT, lower extremity (CMS/[facility]) LEFT LEG Family history of early CAD 03/01/2014 DX:Family history of early CAD Family history of factor V Leiden mutation 12/12/2015 DX:Family history of factor V Leiden mutation History of renal dialysis CURRENT [facility] (hearing loss) Hyperlipidemia 02/14/2014 DX:Hyperlipidemia Hypertension 02/14/2014 DX:Hypertension Joint pain Lung nodule Microalbuminuria 09/22/2016 DX:Microalbuminuria Osteoporosis 02/14/2014 DX:Osteoporosis Past Surgical History: Procedure Laterality Date CATARACT EXTRACTION Bilateral 2020 PROCEDURE: HISTORICAL CATARACT REMOVAL OTHER SURGICAL HISTORY 05/2012 PROCEDURE: ---- OTHER ----; COMMENT: lumbar microdiscectomy admitted 07/08/2024 with Acute encephalopathy. Food/Nutrition History: Previous Diet / Nutrition Education / Counseling: Per MST eli, pt reports weight loss of 24-33 lb in past 3 months, and reports poor PO intake. Pt living by herself prior to admission, but hassupport from children. History of DM- takes glipizide at home. No noted food allergies. Appetite LEDGER CLERK: Poor Intake LEDGER CLERK: Decreased Weight History: Wt Readings from Last 10 Encounters: 08/01/24 73.1 kg (161 lb 3.2 oz) 06/17/24 76.2 kg (168 lb) 06/13/24 76.5 kg (168 lb 9.6 oz) 06/06/24 76.4 kg (168 lb 6.4 oz) 05/30/24 76.7 kg (169 lb) 05/23/24 76.2 kg (168 lb) 05/13/24 77.6 kg (171 lb) 04/27/24 78.8 kg (173 lb 11.2 oz) 04/18/24 79.8 kg (176 lb) 04/12/24 80.3 kg (177 lb) Subjective Assessment: Pt seen for follow up. She reports improved PO intake since last visit. AIR CHIPPER at bedside who confirmed she has been eating more- consumed 100% of breakfast this morning. States she has been drinking Glucerna shakes, and wants to continue receiving BID. Pt remains on HD- awaiting discharge to SNF. Updated weight 161 lb, indicating a weight loss of 20 lb since 07/21. Suspect weight loss multifactorial- fluid loss from HD and actual weight loss due to poor PO for ~2- 3 weeks. Nutrition-Related Lab Values: Results from last 7 days Lab Units 08/01/24 0859 08/01/24 0734 08/01/24 0659 07/30/24 1702 07/30/24 1152 SODIUM mmol/L -- -- 132* < > -- POTASSIUM mmol/L -- -- 4.7 < > -- CHLORIDE mmol/L -- -- 96 < > -- CO2 mmol/L -- -- 30 < > -- BUN mg/dL -- -- 71* < > -- CREATININE mg/dL -- -- 4.62* < > -- EGFR mL/min/1.73m2 -- -- 9* < > -- CALCIUM mg/dL -- -- 8.6 < > -- BILIRUBIN TOTAL mg/dL -- -- -- -- 0.4 ALK PHOS unit/L -- -- -- -- 80 ALT unit/L -- -- -- -- 17 AST unit/L -- -- -- -- 12 POCT GLUCOSE mg/dL 128* < > -- < > -- GLUCOSE mg/dL -- -- 74 < > -- WBC AUTO K/mcL -- -- 9.2 < > -- < > = values in this interval not displayed. Lab Results Component Value Date LIPASE <10 (L) 07/12/2024 Food/Nutrition-Current Status: Intake Type: P.O. Appetite: Fair Intake Amount (%): 50-75% Intake Assessment: Improved Nutrition Focused Physical Findings: Overall Appearance: No visual findings of muscle or fat depletion Skin: Skin intact per front end engineer Nutrition Diagnosis: Code Type: None Identified Status: Other (Comment) (Continuing to monitor for weight loss) Diagnosis: Unintentional Weight Loss Etiology: Changes in taste and appetite or preference Symptoms: pt report of 24-33 lb weight loss in 3 months prior to admission Nutrition Interventions: Meals/Snacks, Medical Food Supplement, Diet Order, Nutrition Education - Continue 2 gm Na diet. Add 90 gm carbohydrate/meal restriction for elevated POCs. Liberalize to 3gm K diet given K within normal limits and current inadequate PO. - Continue glucerna BID for inadequate intake - Monitor weights, renal labs, POCs Goals: Patient will consume greater than or equal to 75% meals., Patient will consume ONS., Monitor/control glucose levels, Improvement in renal labs., Electrolytes within normal range., Maintain weight., Stooling appropriately., and Maintain skin integrity. Coordination of Patient Care: Verbal discussion with RN. Monitoring/Evaluation: Fluid/Beverage Intake, Food Intake, Medical Food Supp/Oral Nutrition Supp, Weight, Renal/Electrolyte Profile, Gastrointestinal Profile, Diet Order Follow Up: Nutrition Priority Level: Moderate Please consult nutrition if needed sooner. RD remains available and will continue to follow. Signature: Kayleigh Laguna RD * Katina Mendez RN - 08/01/2024 5:30 AM EST Problem: Falls: Fall Risk (Adult IP BH) Goal: (Goal) Patient will experience maximum safety and reduce risk for falls. 08/01/2024320 by Katina Altamirano RN Outcome: Progressing 08/01/2024252 by Katina Altamirano RN Outcome: Progressing Goal: Patient will not fall or injure themselves during hospitalization. 08/01/2024320 by Katina Altamirano RN Outcome: Progressing 08/01/2024252 by Katina Altamirano RN Outcome: Progressing Problem: Balance Goal: Patient will demonstrate Intervention to enhance balance for safe completion of daily activities 08/01/2024320 by Katina Altamirano RN Outcome: Not Progressing 08/01/2024252 by Katina Altamirano RN Outcome: Not Progressing Goal: Patient will maintain balance 08/01/2024320 by Katina Altamirano RN Outcome: Not Progressing 08/01/2024252 by Katina Altamirano RN Outcome: Not Progressing Goal: Patient will maintain balance to allow for safe mobility 08/01/2024320 by Katina Altamirano RN Outcome: Not Progressing 08/01/2024252 by Katina Altamirano RN Outcome: Not Progressing Goal: Patient will maintain standing and sitting balance to allow for completion of daily activities 08/01/2024320 by Katina Altamirano RN Outcome: Not Progressing 08/01/2024252 by Katina Altamirano RN Outcome: Not Progressing Goal: Patient will tolerate standing 08/01/2024320 by Katina Altamirano RN Outcome: Not Progressing 08/01/2024252 by Katina Altamirano RN Outcome: Not Progressing Goal: Maintains dynamic standing balance with upper extremity support 08/01/2024320 by Katina Altamirano RN Outcome: Not Progressing 08/01/2024252 by Katina Altamirano RN Outcome: Not Progressing Goal: Maintains dynamic standing balance without upper extremity support 08/01/2024320 by Katina Altamirano RN Outcome: Not Progressing 08/01/2024252 by Katina Altamirano RN Outcome: Not Progressing Goal: Maintains static standing balance with upper extremity support 08/01/2024320 by Katina Altamirano RN Outcome: Not Progressing 08/01/2024252 by Katina Altamirano RN Outcome: Not Progressing Goal: Maintains static standing balance without upper extremity support 08/01/2024320 by Katina Altamirano RN Outcome: Not Progressing 08/01/2024 025 by Katina Altamirano RN Outcome: Not Progressing Goal: Maintains static sitting balance with upper extremity support 08/01/2024 032 by Katina Altamirano RN Outcome: Not Progressing 08/01/2024252 by Katina Altamirano RN Outcome: Not Progressing Goal: Maintains static sitting balance without upper extremity support 08/01/2024 032 by Katina Altamirano RN Outcome: Not Progressing 08/01/2024252 by Katina Altamirano RN Outcome: Not Progressing Goal: Maintains dynamic sitting balance with upper extremity support 08/01/2024 032 by Katina Altamirano RN Outcome: Not Progressing 08/01/2024252 by Katina Altamirano RN Outcome: Not Progressing Goal: Maintains dynamic sitting balance without upper extremity support 08/01/2024 032 by Katina Altamirano RN Outcome: Not Progressing 08/01/2024252 by Katina Altamirano RN Outcome: Not Progressing Problem: Mobility Goal: Patient will be able to go up and down a curb/step with the appropriate device 08/01/2024320 by Katina Altamirano RN Outcome: Not Progressing 08/01/2024252 by Katina Altamirano RN Outcome: Not Progressing Goal: Patient will propel wheelchair household/community distances 08/01/2024 032 by Katina Altamirano RN Outcome: Not Progressing 08/01/2024252 by Katina Altamirano RN Outcome: Not Progressing Goal: Patient will demonstrate kitchen mobility 08/01/2024 032 by Katina Altamirano RN Outcome: Not Progressing 08/01/2024252 by Katina Altamirano RN Outcome: Not Progressing Goal: Patient will recall and demonstrate 3 out of 3 total hip precautions during mobility 08/01/2024 032 by Katina Altamirano RN Outcome: Not Progressing 08/01/2024 025 by Katina Altamirano RN Outcome: Not Progressing Goal: Patient will ambulate community distance 08/01/2024 032 by Katina Altamirano RN Outcome: Not Progressing 08/01/2024252 by Katina Altamirano RN Outcome: Not Progressing Goal: Patient will propel wheelchair household distances 08/01/2024 032 by Katina Altamirano RN Outcome: Not Progressing 08/01/2024252 by Katina Altamirano RN Outcome: Not Progressing Goal: Patient will ambulate household distance 08/01/2024320 by Katina Altamirano RN Outcome: Not Progressing 08/01/2024252 by Katina Altamirano RN Outcome: Not Progressing Goal: Patient will navigate 4-6 steps with rails/device 08/01/2024320 by Katina Altamirano RN Outcome: Not Progressing 08/01/2024252 by Katina Altamirano RN Outcome: Not Progressing Goal: Patient will demonstrate safe mobility requirements 08/01/2024320 by Katina Altamirano RN Outcome: Not Progressing 08/01/2024252 by Katina Altamirano RN Outcome: Not Progressing Goal: Patient will propel the wheelchair 08/01/2024320 by Katina Altamirano RN Outcome: Not Progressing 08/01/2024252 by Katina Altamirano RN Outcome: Not Progressing Goal: Patient will ambulate 08/01/2024320 by Katina Altamirano RN Outcome: Not Progressing 08/01/2024252 by Katina Altamirano RN Outcome: Not Progressing Goal: Patient will ambulate up and down a curb/step 08/01/2024320 by Katina Altamirano RN Outcome: Not Progressing 08/01/2024252 by Katina Altamirano RN Outcome: Not Progressing Goal: Patient will ascend and descend four to six stairs 08/01/2024320 by Katina Altamirano RN Outcome: Not Progressing 08/01/2024252 by Katina Altamirano RN Outcome: Not Progressing Goal: Patient will ascend and descend a flight of stairs 08/01/2024320 by Katina Altamirano, RN Outcome: Not Progressing 08/01/2024252 by Katina Altamirano RN Outcome: Not Progressing Problem: Safety Goal: Patient will adhere to precautions during ADL's and transfers 08/01/2024320 by Katina Altamirano, RN Outcome: Not Progressing 08/01/2024252 by Katina Altamirano RN Outcome: Not Progressing Goal: Patient will demonstrate safety requirements appropriate to situation/environment 08/01/2024320 by Katina Altamirano RN Outcome: Not Progressing 08/01/2024252 by Katina Altamirano RN Outcome: Not Progressing Goal: Patient will utilize safety techniques 08/01/2024320 by Katina Altamirano RN Outcome: Not Progressing 08/01/2024252 by Katina Altamirano RN Outcome: Not Progressing Goal: Patient locks brakes on wheelchair 08/01/2024320 by Katina Altamirano RN Outcome: Not Progressing 08/01/2024252 by Katina Altamirano RN Outcome: Not Progressing Goal: Patient uses call light consistently to request assistance with transfers 08/01/2024320 by Katina Altamirano RN Outcome: Not Progressing 08/01/2024252 by Katina Altamirano RN Outcome: Not Progressing Goal: Free from fall injury 08/01/2024320 by Katina Altamirano RN Outcome: Not Progressing 08/01/2024252 by Katina Altamirano RN Outcome: Not Progressing Problem: Transfers Goal: Patient will transfer to car 08/01/2024320 by Katian Altamirano RN Outcome: Not Progressing 08/01/2024252 by Katina Altamirano RN Outcome: Not Progressing Goal: Patient will transfer from one surface to another 08/01/2024320 by Katina Altamirano RN Outcome: Not Progressing 08/01/2024252 by Katina Altamirano RN Outcome: Not Progressing Goal: Patient will demonstrate safe transfer techniques 08/01/2024320 by Katina Altamirano RN Outcome: Not Progressing 08/01/2024252 by Katina Altamirano RN Outcome: Not Progressing Goal: Patient will transfer to commode 08/01/2024320 by Katina Altamirano RN Outcome: Not Progressing 08/01/2024252 by Katina Altamirano RN Outcome: Not Progressing Goal: Patient will transfer to tub/shower 08/01/2024 032 by Katina Altamirano, RN Outcome: Not Progressing 08/01/2024252 by Katina Altamirano RN Outcome: Not Progressing Goal: Patient will transfer from wheelchair to toilet 08/01/2024 032 by Katina Altamirano, RN Outcome: Not Progressing 08/01/2024252 by Katina Altamirano RN Outcome: Not Progressing Goal: Transfer from bed to chair. 08/01/2024320 by Katina Altamirano RN Outcome: Not Progressing 08/01/2024252 by Katina Altamirano RN Outcome: Not Progressing Goal: Patient to transfer to and from sit to supine 08/01/2024320 by Katina Altamirano RN Outcome: Not Progressing 08/01/2024252 by Katina Altamirano RN Outcome: Not Progressing Goal: Patient will perform bed mobility 08/01/2024320 by Katina Altamirano RN Outcome: Not Progressing 08/01/2024252 by Katina Altamirano RN Outcome: Not Progressing Goal: Patient will roll 08/01/2024 032 by Katina Altamirano, RN Outcome: Not Progressing 08/01/2024252 by Katina Altamirano RN Outcome: Not Progressing Goal: Patient will transfer sit to and from stand 08/01/2024320 by Katina Altamirano RN Outcome: Not Progressing 08/01/2024252 by Katina Altamirano RN Outcome: Not Progressing Goal: Patient will perform car transfer 08/01/2024320 by Katina Altamirano RN Outcome: Not Progressing 08/01/2024252 by Katina Altamirano RN Outcome: Not Progressing Goal: Patient will perform toilet transfer 08/01/2024320 by Katina Altamirano, RN Outcome: Not Progressing 08/01/2024252 by Katina Altamirano RN Outcome: Not Progressing Goal: Patient will perform tub/shower transfer 08/01/2024320 by Katina Altamirano RN Outcome: Not Progressing 08/01/2024252 by Katina Altamirano RN Outcome: Not Progressing Goal: Patient will follow hip precautions during transfers 08/01/2024320 by Katina Altamirano, RN Outcome: Not Progressing 08/01/2024252 by Katina Altamirano RN Outcome: Not Progressing Goal: Patient maintains weight bearing status during transfers 08/01/2024320 by Katina Altamirano, RN Outcome: Not Progressing 08/01/2024252 by Katina Altamirano RN Outcome: Not Progressing Problem: Pain Goal: Patient will manage pain with the appropriate technique/Intervention 08/01/2024320 by Katina Altamirano, RN Outcome: Progressing 08/01/2024252 by Katina Altamirano RN Outcome: Not Progressing Goal: Patient will demonstrate intervention for managing pain 08/01/2024320 by Katina Altamirano, RN Outcome: Progressing 08/01/2024252 by Katina Altamirano RN Outcome: Not Progressing Goal: Patient will reduce or eliminate use of analgesics 08/01/2024320 by Katina Altamirano, RN Outcome: Progressing 08/01/2024252 by Katina Altamirano RN Outcome: Not Progressing Goal: Pain is manageable through therapies 08/01/2024320 by Katina Altamirano RN Outcome: Progressing 08/01/2024252 by Katina Altamirano RN Outcome: Not Progressing Goal: Patient will verbalize an acceptable level of pain 08/01/2024320 by Katina Altamirano RN Outcome: Progressing 08/01/2024252 by Katina Altamirano RN Outcome: Not Progressing Goal: Patients pain is managed to allow active participation in daily activities 08/01/2024320 by Kaitna Altamirano RN Outcome: Progressing 08/01/2024252 by Katina Altamirano RN Outcome: Not Progressing Goal: Patient will increase activity level 08/01/2024320 by Katina Altamirano RN Outcome: Progressing 08/01/2024252 by Katina Altamirano RN Outcome: Not Progressing Goal: Patient verbalizes a reduction in pain level 08/01/2024320 by Katina Altamirano RN Outcome: Progressing 08/01/2024252 by Katina Altamirano RN Outcome: Not Progressing Problem: Compromised Skin Integrity Goal: Patient will be free from infection 08/01/2024320 by Katina Altamirano RN Outcome: Progressing 08/01/2024252 by Katina Altamirano RN Outcome: Not Progressing Goal: Patient will maintain/improve skin integrity through proper skin care techniques 08/01/2024320 by Katina Altamirano RN Outcome: Progressing 08/01/2024252 by Katina Altamirano RN Outcome: Not Progressing Goal: Patient will demonstrate appropriate pressure relief techniques 08/01/2024320 by Katina Altamirano RN Outcome: Progressing 08/01/2024252 by Katina Altamirano RN Outcome: Not Progressing Goal: Patient will demonstrate appropriate skin care techniques 08/01/2024320 by Katina Altamirano RN Outcome: Progressing 08/01/2024252 by Katina Altamirano RN Outcome: Not Progressing Goal: Patient will be free from infection 08/01/2024320 by Katina Altamiarno RN Outcome: Progressing 08/01/2024252 by Katina Altamirano RN Outcome: Not Progressing Goal: Patient demonstrates skin care/treatment/dressing change 08/01/2024320 by Katina Altamirano RN Outcome: Progressing 08/01/2024252 by Katina Altamirano RN Outcome: Not Progressing Goal: Patient will maintain good skin integrity 08/01/2024320 by Katina Altamirano RN Outcome: Progressing 08/01/2024252 by Katina Altamirano RN Outcome: Not Progressing Goal: Patient exhibits signs of wound healing. 08/01/2024320 by Katina Altamirano RN Outcome: Progressing 08/01/2024252 by Katina Altamirano RN Outcome: Not Progressing Goal: Patient demonstrates pressure reduction techniques 08/01/2024320 by Katina Altamirano RN Outcome: Progressing 08/01/2024252 by Katina Altamirano RN Outcome: Not Progressing Goal: Patient demonstrates preventative skin care measures 08/01/2024320 by Katina Altamirano RN Outcome: Progressing 08/01/2024252 by Katina Altamirano RN Outcome: Not Progressing Goal: Patient will perform skin checks daily on residual limb 08/01/2024320 by Katina Altamirano RN Outcome: Progressing 08/01/2024252 by Katina Altamirano RN Outcome: Not Progressing Goal: Patient will appropriately don and doff shrinkers and prevent and skin breakdown 08/01/2024320 by Katina Altamirano RN Outcome: Progressing 08/01/2024252 by Katina Altamirano RN Outcome: Not Progressing Problem: Physical Regulation:Infection Management Goal: Signs and symptoms of infection will decrease Outcome: Progressing Goal: Complications related to the disease process, condition or treatment will be avoided or minimized Outcome: Progressing Goal: Diagnostic test results will improve Outcome: Progressing Problem: Cognitive:Infection Management Goal: Knowledge of disease or condition will improve Outcome: Progressing Problem: Skin Integrity: Pressure Injury Actual or Risk of Goal: Will not develop new pressure injury Outcome: Progressing Goal: Skin integrity will improve Outcome: Progressing Goal: Risk for impaired skin integrity will decrease Outcome: Progressing Problem: Activity:Pressure Injury Actual or Risk of Goal: Mobility will improve Outcome: Progressing Problem: Nutritional:Pressure Injury Actual or Risk of Goal: Nutritional status will improve Outcome: Progressing Problem: Patient Specific Problem: Pressure Injury Actual or Risk of Goal: Patient Specific Outcome Outcome: Progressing Problem: Cognitive: Bernardo Brock Fall Risk Goal: Last Known Fall Outcome: Progressing Goal: Mobility requiring assistance of person or device Outcome: Progressing Goal: Dizziness Outcome: Progressing Goal: Medications Outcome: Progressing Goal: Mental Status/LOC/Awareness Outcome: Progressing Goal: Toileting Needs Outcome: Progressing Goal: Volume and Electrolyte Status Outcome: Progressing Goal: Communication/Sensory Outcome: Progressing Goal: Behavior Outcome: Progressing Problem: Dressings Lower Extremities Goal: Patient will complete lower body dressing Outcome: Not Progressing Problem: Transfers Goal: Patient will perform toilet transfer Outcome: Not Progressing Goals: Increased mobility, bladder scan < 350ml Identify possible barriers to meeting goals/advancing plan of care: HD, awaiting placement Stability of the patient: Moderately Stable - Low risk of patient condition declining or worsening End of Shift Summary: No c/o pain overnight. VS stable. Bed alarm on. * Jolene Cardona RN - 07/31/2024 7:09 PM EST Goals: Identify possible barriers to meeting goals/advancing plan of care: weakness/anemia Stability of the patient: Moderately Stable - Low risk of patient condition declining or worsening End of Shift Summary: Patient took all meds as scheduled. Spent 3 hours sitting in the chair. Denies pain, VSS. eyes drop applied x3. Safety maintained * Jonny Mathur MD - 07/31/2024 3:19 PM EST Images from the original note were not included. SONYA PROGRESS NOTE Date: 07/31/2024 Author: Jonny Mathur MD Patient ID: Ana Contreras is a 79 y.o. female : 1945 MR#: [id number] SUBJECTIVE Follow up:metabolic encephalopathy, renal failure requiring HD, DVT LLE Offers no new symptoms/complaints. Appetite has improved. OOB to chair Allergies Patient has no known allergies. Current Medications: apixaban, 10 mg, oral, BID [START ON 08/06/2024] apixaban, 5 mg, oral, BID atorvastatin, 10 mg, oral, Nightly B complex-vitamin C-folic acid, 1 each, oral, Daily docusate sodium, 100 mg, oral, BID insulin glargine, 10 Units, subcutaneous, Nightly insulin lispro, 1-6 Units, subcutaneous, Before meals & nightly insulin lispro, 3 Units, subcutaneous, TID AC pantoprazole, 40 mg, oral, q AM AC polyetheylene glycol, 17 g, oral, Daily predniSONE, 60 mg, oral, Daily sodium chloride, 10 mL, intravenous, BID sodium chloride, 10 mL, intravenous, BID sulfamethoxazole-trimethoprim, 160 mg, oral, Once per day on Thursday thiamine, 100 mg, oral, Daily PRN medications: acetaminophen, acetaminophen, albuterol, benzonatate, dextrose 50%, dextrose 50%, dextrose, dextrose, diphenhydrAMINE, diphenhydrAMINE, EPINEPHrine, famotidine, glucagon injection, hydrALAZINE, hydrocortisone sodium succinate, HYDROmorphone, naloxone, ondansetron, oxyCODONE, artificial tears, sodium chloride, Insert peripheral IV AND Maintain IV access AND Saline lock IV AND sodium chloride AND sodium chloride, [COMPLETED] Insert Midline AND Maintain IV access AND Saline lock IV AND sodium chloride AND sodium chloride, sodium chloride, sodium chloride, sodium chloride OBJECTIVE Vitals: 07/31/24 0401 07/31/24 0600 07/31/24 0804 07/31/24 1452 BP: (!) 153/66 (!) 145/66 (!) 144/62 BP Location: Left arm Left arm Left arm Patient Position: Lying Pulse: 72 70 81 Resp: 16 15 15 Temp: 36.4 ??C (97.5 ??F) 36.3 ??C (97.4 ??F) 37 ??C (98.6 ??F) TempSrc: Temporal Temporal Temporal SpO2: 100% 100% 99% Weight: 72.6 kg (160 lb 1.6 oz) Height: Vital Signs: as documented above General: No acute distress. Up in bed. Calm/cooperative. HEENT/Neck: Moist mucosa, no icterus, supple Thorax: Hemodialysis catheter left upper anterior chest wall. No accessory muscles use. Clear anteriorly Cardiac: Regular. Abdomen: Not distended,+ bowel sounds, soft, nontender Extremities: No edema, no cyanosis, no calf tenderness Mental Status: Awake, alert Neurological: No localizing weakness. Gait not tested : Deferred LABS HEMATOLOGY Lab Results Component Value Date WBC 7.4 07/31/2024 HGB 7.3 (L) 07/31/2024 HCT 23.7 (L) 07/31/2024 MCV 84.0 07/31/2024 PLT 183 07/31/2024 CHEMISTRY Lab Results Component Value Date GLUCOSE 132 (H) 07/31/2024 NA 132 (L) 07/31/2024 K 4.4 07/31/2024 CO2 31 07/31/2024 CL 94 (L) 07/31/2024 BUN 54 (H) 07/31/2024 CREATININE 3.73 (H) 07/31/2024 EGFR 12 (L) 07/31/2024 CALCIUM 8.3 (L) 07/31/2024 MG 2.2 07/17/2024 PHOS 2.9 07/17/2024 ANIONGAP 7 07/31/2024 Imaging: IR Bx Ndl Renal Perc Left Narrative: INDICATION: Acute renal failure PROCEDURE: Consent obtained for CT guided random core renal biopsy under conscious sedation. prior relevant studies: PET/CT from May 03, 2024 MEDICATIONS: Local anesthesia: 8 cc of 1% buffered lidocaine administered subcutaneously. Sedation: Moderate intravenous sedation was initiated and maintained for 30 minutes while the patient was independently monitored by the radiology nurse under the supervision of the interventional radiologist. A total of 1.5 mg of Versed and 50 mcg of fentanyl administered during the procedure. Scanner: [employer] [address] Dose reduction technique: AEC (automated exposure control) Dose: total exam DLP 373 mGY per cm TECHNIQUE: Patient placed prone on the CT table and multiple axial images obtained through the kidneys. Appropriate area the skin overlying the left kidney was marked, draped and prepped using maximum sterile barrier. Moderate sedation initiated with administration of local anesthetic. Under CT fluo roscopic guidance a 17-gauge coaxial needle was advanced into the periphery of the localized kidney. 3 18-gauge core biopsy samples obtained. Gelfoam slurry was injected through the coaxial needle along the perinephric space. FINDINGS: Initial limited CT images of the abdomen demonstrate normal-sized kidneys bilaterally. Left lower pole localized for biopsy. Images obtained during localization and needle positioning demonstrate coaxial needle positioned within the periphery of the localized kidney. Images obtained after biopsy demonstrate no significant postbiopsy hemorrhage. Gelfoam slurry notedalong the liver capsule at site of needle insertion. SPECIMENS: Core biopsy samples placed in sterile saline and sent to the pathology department. Impression: CT-guided random core renal biopsy using coaxial technique. -------- FINAL REPORT -------- Dictated By: Fela Palomo Dictated Date: 07/22/2024 16:58 ET Assigned Physician: Fela Palomo Reviewed and Electronically Signed By: Fela Palomo Signed Date: 07/22/2024 17:00 ET Workstation ID: [id number] Transcribed By: Self Edit Transcribed Date: 07/22/2024 16:58 ET ASSESSMENT & PLAN Patient is an 79 woman with HTN, DM2, CKD 4, iron deficiency anemia, hyperlipidemia, and recent diagnosis of lung nodule with planned bronchoscopy and EBUS , she was brought to the [facility] ER on 07/08 after wellness check was called to police by her daughter. She was allegedly found on the ground unableto get up and appeared confused While in ER, patient was afebrile and hemodynamically stable without hypoxia. Subsequent work up: leukocytosis, hemoglobin 7.3 most recent hemoglobin 7.4 on 06/17/2024, RENE was noted with BUN 63 and creatinine 4(most recent creatinine 2 on 06/17/2024), CK was 649. UA demonstrated proteinuria glucosuria large blood 7 WBCs 21 RBCs and negative bacteria, CT head showed no acute intracranial abnormality CT neck showed no cervical spine fracture, and chest x-ray was without acute findings. She was placed on IVF and subsequently admitted Acute on chronic kidney injury Crescentic glomerulonephritis CKD3a Requiring acute HD On hemodialysis(MWF). Patient had been on prednisone and on TMP-SMX MWF. 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 Retuximab given 07/28. Nephrology following closely who feels patient without signs of renal recovery yet. -next dose rituximab in 2 weeks -Next HD tomorrow Right upper lobe pulmonary nodules/right lung mass. Noted by previous provider, patient had CT-guided biopsy on 05/23/2024 which was nondiagnostic. Shehad been referred to thoracic team and plan is for endoscopy with EBUS. Lung mass biopsy which is scheduled for 07/[address] Montez((note patient was not on dialysis or anticoagulation when initially scheduled). While hospitalized there was consideration for doing aforementioned procedure. I was later notified by Dr. Montez procedure cancelled and cleared to resume heparin IV gtt. Confirmed withThoracic Surgery yesterday procedure rescheduled to 08/05 at 11:30 Left lower extremity DVT. Had bee on Heparin drip and holding transition to oral anticoagulation(NOAC) as she was initially scheduled for another biopsy (discussed above). -As thoracic procedure rescheduled, IV heparin transitioned to apixaban 07/30 Metabolic encephalopathy, acute Present on admission. CT brain negative. No obvious active infection. Resolved. Possibly due to worsening renal failure. Resolved. Hematuria Reportedly has had bouts of hematuria possibly due to indwelling urinary catheter and/or glomerulonephritis as discussed above. Will probably have abnormal UA at baseline. No reported symptoms Chronic anemia Iron deficiency. Treated with IV iron. Transfused PRBC. -follow H&H Physical deconditioning Hx fall Traumatic rhabdomyolysis Patient has had progressive weakness and with history of fall. She was found to have traumatic rhabdomyolysis on admission which has resolved. She was evaluated by physical therapy on 07/26 who was recommended inpatient rehab on discharge. -Activity as tolerated -Continue with physical therapy while in house. DISPOSITION HD tomorrow Patient will need SNF with hemodialysis capability([facility] vs [facility]). [facility] already aware and referrals placed. * Katina Mendez RN - 07/31/2024 6:30 AM EST Problem: Falls: Fall Risk (Adult [facility]) Goal: (Goal) Patient will experience maximum safety and reduce risk for falls. Outcome: Progressing Goal: Patient will not fall or injure themselves during hospitalization. Outcome: Progressing Problem: Balance Goal: Patient will demonstrate Intervention to enhance balance for safe completion of daily activities Outcome: Progressing Goal: Patient will maintain balance Outcome: Not Progressing Goal: Patient will maintain balance to allow for safe mobility Outcome: Not Progressing Goal: Patient will maintain standing and sitting balance to allow for completion of daily activities Outcome: Not Progressing Goal: Patient will tolerate standing Outcome: Not Progressing Goal: Maintains dynamic standing balance with upper extremity support Outcome: Not Progressing Goal: Maintains dynamic standing balance without upper extremity support Outcome: Not Progressing Goal: Maintains static standing balance with upper extremity support Outcome: Not Progressing Goal: Maintains static standing balance without upper extremity support Outcome: Not Progressing Goal: Maintains static sitting balance with upper extremity support Outcome: Not Progressing Goal: Maintains static sitting balance without upper extremity support Outcome: Not Progressing Goal: Maintains dynamic sitting balance with upper extremity support Outcome: Not Progressing Goal: Maintains dynamic sitting balance without upper extremity support Outcome: Not Progressing Problem: Mobility Goal: Patient will be able to go up and down a curb/step with the appropriate device Outcome: Not Progressing Goal: Patient will propel wheelchair household/community distances Outcome: Not Progressing Goal: Patient will demonstrate kitchen mobility Outcome: Not Progressing Goal: Patient will recall and demonstrate 3 out of 3 total hip precautions during mobility Outcome: Not Progressing Goal: Patient will ambulate community distance Outcome: Not Progressing Goal: Patient will propel wheelchair household distances Outcome: Not Progressing Goal: Patient will ambulate household distance Outcome: Not Progressing Goal: Patient will navigate 4-6 steps with rails/device Outcome: Not Progressing Goal: Patient will demonstrate safe mobility requirements Outcome: Not Progressing Goal: Patient will propel the wheelchair Outcome: Not Progressing Goal: Patient will ambulate Outcome: Not Progressing Goal: Patient will ambulate up and down a curb/step Outcome: Not Progressing Goal: Patient will ascend and descend four to six stairs Outcome: Not Progressing Goal: Patient will ascend and descend a flight of stairs Outcome: Not Progressing Problem: Safety Goal: Patient will adhere to precautions during ADL's and transfers Outcome: Progressing Goal: Patient will demonstrate safety requirements appropriate to situation/environment Outcome: Progressing Goal: Patient will utilize safety techniques Outcome: Progressing Goal: Patient locks brakes on wheelchair Outcome: Not Progressing Goal: Patient uses call light consistently to request assistance with transfers Outcome: Progressing Goal: Free from fall injury Outcome: Progressing Problem: Transfers Goal: Patient will transfer to car Outcome: Not Progressing Goal: Patient will transfer from one surface to another Outcome: Not Progressing Goal: Patient will demonstrate safe transfer techniques Outcome: Not Progressing Goal: Patient will transfer to commode Outcome: Progressing Goal: Patient will transfer to tub/shower Outcome: Not Progressing Goal: Patient will transfer from wheelchair to toilet Outcome: Not Progressing Goal: Transfer from bed to chair. Outcome: Not Progressing Goal: Patient to transfer to and from sit to supine Outcome: Not Progressing Goal: Patient will perform bed mobility Outcome: Not Progressing Goal: Patient will roll Outcome: Progressing Goal: Patient will transfer sit to and from stand Outcome: Not Progressing Goal: Patient will perform car transfer Outcome: Not Progressing Goal: Patient will perform toilet transfer Outcome: Not Progressing Goal: Patient will perform tub/shower transfer Outcome: Not Progressing Goal: Patient will follow hip precautions during transfers Outcome: Not Progressing Goal: Patient maintains weight bearing status during transfers Outcome: Not Progressing Problem: Pain Goal: Patient will manage pain with the appropriate technique/Intervention Outcome: Progressing Goal: Patient will demonstrate intervention for managing pain Outcome: Progressing Goal: Patient will reduce or eliminate use of analgesics Outcome: Progressing Goal: Pain is manageable through therapies Outcome: Progressing Goal: Patient will verbalize an acceptable level of pain Outcome: Progressing Goal: Patients pain is managed to allow active participation in daily activities Outcome: Progressing Goal: Patient will increase activity level Outcome: Progressing Goal: Patient verbalizes a reduction in pain level Outcome: Progressing Problem: Compromised Skin Integrity Goal: Patient will be free from infection Outcome: Progressing Goal: Patient will maintain/improve skin integrity through proper skin care techniques Outcome: Progressing Goal: Patient will demonstrate appropriate pressure relief techniques Outcome: Progressing Goal: Patient will demonstrate appropriate skin care techniques Outcome: Progressing Goal: Patient will be free from infection Outcome: Progressing Goal: Patient demonstrates skin care/treatment/dressing change Outcome: Progressing Goal: Patient will maintain good skin integrity Outcome: Progressing Goal: Patient exhibits signs of wound healing. Outcome: Progressing Goal: Patient demonstrates pressure reduction techniques Outcome: Progressing Goal: Patient demonstrates preventative skin care measures Outcome: Progressing Goal: Patient will perform skin checks daily on residual limb Outcome: Progressing Goal: Patient will appropriately don and doff shrinkers and prevent and skin breakdown Outcome: Progressing Problem: Cognitive:Infection Management Goal: Knowledge of disease or condition will improve Outcome: Progressing Problem: Skin Integrity: Pressure Injury Actual or Risk of Goal: Will not develop new pressure injury Outcome: Progressing Goal: Skin integrity will improve Outcome: Progressing Goal: Risk for impaired skin integrity will decrease Outcome: Progressing Problem: Activity:Pressure Injury Actual or Risk of Goal: Mobility will improve Outcome: Progressing Problem: Nutritional:Pressure Injury Actual or Risk of Goal: Nutritional status will improve Outcome: Progressing Problem: Patient Specific Problem: Pressure Injury Actual or Risk of Goal: Patient Specific Outcome Outcome: Progressing Problem: Cognitive: Tova Gutiérrez Fall Risk Goal: Last Known Fall Outcome: Progressing Goal: Mobility requiring assistance of person or device Outcome: Progressing Goal: Dizziness Outcome: Progressing Goal: Medications Outcome: Progressing Goal: Mental Status/LOC/Awareness Outcome: Progressing Goal: Toileting Needs Outcome: Progressing Goal: Volume and Electrolyte Status Outcome: Progressing Goal: Communication/Sensory Outcome: Progressing Goal: Behavior Outcome: Progressing Problem: Dressings Lower Extremities Goal: Patient will complete lower body dressing Outcome: Progressing Problem: Transfers Goal: Patient will perform toilet transfer Outcome: Progressing Goals: Voiding on commode, bladder scan < 350 Identify possible barriers to meeting goals/advancing plan of care: HD, awaiting placement Stability of the patient: Moderately Stable - Low risk of patient condition declining or worsening End of Shift Summary: No c/o pain. Pt voiding small amounts on commode/bedpan, last PVR 174ml. VS stable. Bed alarm on. * Jolene Cardona RN - 07/30/2024 6:49 PM EST Goals: Identify possible barriers to meeting goals/advancing plan of care: HD/weakness Stability of the patient: Moderately Unstable - Medium risk of patient condition declining or worsening End of Shift Summary: First dose of Eliquis given, education provided on the possible side effects,pt expressed understanding. Bladder scan showed 128 ml. Pt was up in the chair for 2 hrs. * Mindy Katz MD - 07/30/2024 5:21 PM EST Images from the original note were not included. Progress Note CHIEF COMPLAINT F/u SUBJECTIVE Patient seen and examined MEDICAL HISTORY Past Medical History: Diagnosis Date Anemia Arthritis Blindness Decreased vision 11/29/2014 DX:Decreased vision Diabetes mellitus, type 2 (CMS/HCC) 02/14/2014 DX:Diabetes mellitus, type 2 (HCC) DVT, lower extremity (CMS/HCC) LEFT LEG Family history of early CAD 03/01/2014 DX:Family history of early CAD Family history of factor V Leiden mutation 12/12/2015 DX:Family history of factor V Leiden mutation History of renal dialysis CURRENT VIA [facility] (hearing loss) Hyperlipidemia 02/14/2014 DX:Hyperlipidemia Hypertension 02/14/2014 DX:Hypertension Joint pain Lung nodule Microalbuminuria 09/22/2016 DX:Microalbuminuria Osteoporosis 02/14/2014 DX:Osteoporosis MEDICATIONS apixaban, 10 mg, oral, BID [START ON 08/06/2024] apixaban, 5 mg, oral, BID atorvastatin, 10 mg, oral, Nightly B complex-vitamin C-folic acid, 1 each, oral, Daily docusate sodium, 100 mg, oral, BID insulin glargine, 10 Units, subcutaneous, Nightly insulin lispro, 1-6 Units, subcutaneous, Before meals & nightly insulin lispro, 3 Units, subcutaneous, TID AC pantoprazole, 40 mg, oral, q AM AC polyetheylene glycol, 17 g, oral, Daily predniSONE, 60 mg, oral, Daily sodium chloride, 10 mL, intravenous, BID sodium chloride, 10 mL, intravenous, BID sulfamethoxazole-trimethoprim, 160 mg, oral, Once per day on Thursday thiamine, 100 mg, oral, Daily PRN medications: acetaminophen, acetaminophen, albuterol, benzonatate, dextrose 50%, dextrose 50%, dextrose, dextrose, diphenhydrAMINE, diphenhydrAMINE, EPINEPHrine, famotidine, glucagon injection, hydrALAZINE, hydrocortisone sodium succinate, HYDROmorphone, naloxone, ondansetron, oxyCODONE, artificial tears, sodium chloride, Insert peripheral IV AND Maintain IV access AND Saline lock IV AND sodium chloride AND sodium chloride, [COMPLETED] Insert Midline AND Maintain IV access AND Saline lock IV AND sodium chloride AND sodium chloride, sodium chloride, sodium chloride, sodium chloride OBJECTIVE Vital signs in last 24 hours: Visit Vitals BP (!) 149/61 (BP Location: Left arm) Pulse 93 Temp 36.9 ??C (98.4 ??F) (Temporal) Resp 16 Intake/Output last 24 hours: Intake/Output Summary (Last 24 hours) at 07/30/2024 1721 Last data filed at 07/30/2024 0745 Gross per 24 hour Intake 1481.19 ml Output 350 ml Net 1131.19 ml Weights: Admission Weight: Weight: 72.6 kg (160 lb) Wt Readings from Last 3 Encounters: 02/01/25 73.6 kg (162 lb 3.2 oz) 06/17/24 76.2 kg (168 lb) 06/13/24 76.5 kg (168 lb 9.6 oz) Physical Exam: General: No acute distress HEENT: Normocephalic, atraumatic, anicteric Cardiovascular: S1 S2 normal Respiratory: unlabored Gl: soft non-distended Extremities: No cyanosis Neurological: Alert Integumentary: no rash Psych: Calm, cooperative LABS Results from last 7 days Lab Units 07/30/24 1532 07/30/24 0610 07/29/24 0554 07/28/24 0951 WBC AUTO K/mcL -- 8.0 7.3 13.0* HEMOGLOBIN g/dL 7.1* 7.2* 6.7* 8.0* HEMATOCRIT % 23.1* 23.9* 21.7* 26.5* MCV FL -- 83.6 82.8 84.9 PLATELETS K/mcL -- 176 146 158 Results from last 7 days Lab Units 07/29/24 0554 07/28/24 0951 07/27/24 1342 CREATININE mg/dL 3.73* 2.82* 1.53* BUN mg/dL 49* 32* 17 SODIUM mmol/L 131* 134 131* POTASSIUM mmol/L 4.2 4.0 3.8 CHLORIDE mmol/L 95* 95* 97 CO2 mmol/L 31 29 28 Phosphorus Date Value Ref Range Status 07/17/2024 2.9 2.5 - 4.5 mg/dL Final 07/15/2024 4.2 2.5 - 4.5 mg/dL Final 07/13/2024 3.0 2.5 - 4.5 mg/dL Final PTH Date Value Ref Range Status 07/10/2024 10.5 (L) 18.5 - 88.0 pcg/mL Final 07/08/2024 6.5 (L) 18.5 - 88.0 pcg/mL Final Iron Date Value Ref Range Status 07/08/2024 20 (L) 40 - 150 mcg/dL Final Comment: Hemolysis present 05/31/2024 14 (L) 40 - 150 mcg/dL Final TIBC Date Value Ref Range Status 07/08/2024 186 (L) 250 - 450 mcg/dL Final 05/31/2024 278 250 - 450 mcg/dL Final Ferritin Date Value Ref Range Status 07/08/2024 708 (H) 8 - 252 ng/mL Final 05/31/2024 294 (H) 8 - 252 ng/mL Final No results found for: COLORUA , CLARITYUA , SPECGRAVUA , PHUA , PROTUA , GLUCOSEUA , KETONESUA , BILIRUBINUA , BLOODUA , UROBILINOGUA , NITRITEUA IMPRESSION and PLAN RENE Granulomatosis with polyangiitis (GP?) Hyponatremia Anemia CKD 3 S/p Rituximab infusion (700 mg) yesterday S/p IV pulse steroid on oral prednisone 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 Montez Renal diet Outpatient HD arranged at [facility] -- 1st shift [phone]) Consider Kana Jolene or Maribeth if going to [facility] Mindy Katz MD Cosigned by Miguel Quiles MD at 08/02/2024 2:08 PM EST * Jonny Mathur MD - 07/30/2024 12:28 PM EST Images from the original note were not included. SONYA PROGRESS NOTE Date: 07/30/2024 Author: Jonny Mathur MD Patient ID: Ana Contreras is a 79 y.o. female : 1945 MR#: [id number] SUBJECTIVE Follow up:metabolic encephalopathy, renal failure w/renal bx showing crescentic necrotizing glomerulonephritis requiring HD, DVT LLE Offers no new symptoms/complaints. Feels her appetite has improved. Denies fever/chills. Allergies Patient has no known allergies. Current Medications: apixaban, 10 mg, oral, BID [START ON 08/06/2024] apixaban, 5 mg, oral, BID atorvastatin, 10 mg, oral, Nightly B complex-vitamin C-folic acid, 1 each, oral, Daily docusate sodium, 100 mg, oral, BID insulin glargine, 10 Units, subcutaneous, Nightly insulin lispro, 1-6 Units, subcutaneous, Before meals & nightly insulin lispro, 3 Units, subcutaneous, TID AC pantoprazole, 40 mg, oral, q AM AC polyetheylene glycol, 17 g, oral, Daily predniSONE, 60 mg, oral, Daily sodium chloride, 10 mL, intravenous, BID sodium chloride, 10 mL, intravenous, BID sulfamethoxazole-trimethoprim, 160 mg, oral, Once per day on Thursday thiamine, 100 mg, oral, Daily PRN medications: acetaminophen, acetaminophen, albuterol, benzonatate, dextrose 50%, dextrose 50%, dextrose, dextrose, diphenhydrAMINE, diphenhydrAMINE, EPINEPHrine, famotidine, glucagon injection, hydrALAZINE, hydrocortisone sodium succinate, HYDROmorphone, naloxone, ondansetron, oxyCODONE, artificial tears, sodium chloride, Insert peripheral IV AND Maintain IV access AND Saline lock IV AND sodium chloride AND sodium chloride, [COMPLETED] Insert Midline AND Maintain IV access AND Saline lock IV AND sodium chloride AND sodium chloride, sodium chloride, sodium chloride, sodium chloride OBJECTIVE Vitals: 07/29/24 2014 07/30/24 0317 07/30/24 0500 07/30/24 0813 BP: (!) 142/63 (!) 152/64 (!) 153/60 BP Location: Left arm Left arm Left arm Patient Position: Lying Lying Pulse: 81 78 73 Resp: 16 18 16 Temp: 36.5 ??C (97.7 ??F) 36.6 ??C (97.9 ??F) 36.3 ??C (97.4 ??F) TempSrc: Oral Oral Temporal SpO2: 99% 98% 99% Weight: 73.6 kg (162 lb 3.2 oz) Height: Vital Signs: as documented above General: No acute distress. Up in bed. Calm/cooperative. HEENT/Neck: Moist mucosa, no icterus, supple Thorax: Hemodialysis catheter left upper anterior chest wall. No accessory muscles use. Clear anteriorly Cardiac: Regular. Abdomen: Not distended,+ bowel sounds, soft, nontender Extremities: No edema, no cyanosis, no calf tenderness Mental Status: Awake, alert Neurological: No localizing weakness. Gait not tested : Deferred LABS HEMATOLOGY Lab Results Component Value Date WBC 8.0 07/30/2024 HGB 7.2 (L) 07/30/2024 HCT 23.9 (L) 07/30/2024 MCV 83.6 07/30/2024 PLT 176 07/30/2024 CHEMISTRY Lab Results Component Value Date GLUCOSE 182 (H) 07/30/2024 NA 131 (L) 07/29/2024 K 4.2 07/29/2024 CO2 31 07/29/2024 CL 95 (L) 07/29/2024 BUN 49 (H) 07/29/2024 CREATININE 3.73 (H) 07/29/2024 EGFR 12 (L) 07/29/2024 CALCIUM 7.8 (L) 07/29/2024 MG 2.2 07/17/2024 PHOS 2.9 07/17/2024 ANIONGAP 5 07/29/2024 Imaging: IR Bx Ndl Renal Perc Left Narrative: INDICATION: Acute renal failure PROCEDURE: Consent obtained for CT guided random core renal biopsy under conscious sedation. prior relevant studies: PET/CT from May 03, 2024 MEDICATIONS: Local anesthesia: 8 cc of 1% buffered lidocaine administered subcutaneously. Sedation: Moderate intravenous sedation was initiated and maintained for 30 minutes while the patient was independently monitored by the radiology nurse under the supervision of the interventional radiologist. A total of 1.5 mg of Versed and 50 mcg of fentanyl administered during the procedure. Scanner: [employer] [address] Dose reduction technique: AEC (automated exposure control) Dose: total exam DLP 373 mGY per cm TECHNIQUE: Patient placed prone on the CT table and multiple axial images obtained through the kidneys. Appropriate area the skin overlying the left kidney was marked, draped and prepped using maximum sterile barrier. Moderate sedation initiated with administration of local anesthetic. Under CT fluo roscopic guidance a 17-gauge coaxial needle was advanced into the periphery of the localized kidney. 3 18-gauge core biopsy samples obtained. Gelfoam slurry was injected through the coaxial needle along the perinephric space. FINDINGS: Initial limited CT images of the abdomen demonstrate normal-sized kidneys bilaterally. Left lower pole localized for biopsy. Images obtained during localization and needle positioning demonstrate coaxial needle positioned within the periphery of the localized kidney. Images obtained after biopsy demonstrate no significant postbiopsy hemorrhage. Gelfoam slurry notedalong the liver capsule at site of needle insertion. SPECIMENS: Core biopsy samples placed in sterile saline and sent to the pathology department. Impression: CT-guided random core renal biopsy using coaxial technique. -------- FINAL REPORT -------- Dictated By: Fela Palomo Dictated Date: 07/22/2024 16:58 ET Assigned Physician: Fela Palomo Reviewed and Electronically Signed By: Fela Palomo Signed Date: 07/22/2024 17:00 ET Workstation ID: [id number] Transcribed By: Self Edit Transcribed Date: 07/22/2024 16:58 ET ASSESSMENT & PLAN Acute on chronic kidney injury Glomerulonephritis CKD3a Requiring acute HD On hemodialysis(MWF). Patient had been on prednisone and on TMP-SMX MWF. 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 Retuximab given 07/28. Nephrology following closely who feels patient without signs of renal recovery yet. -next dose rituximab in 2 weeks -Next HD Thursday(08/01) Right upper lobe pulmonary nodules/right lung mass. Noted by previous provider, patient had CT-guided biopsy on 05/23/2024 which was nondiagnostic. Shehad been referred to thoracic team and plan is for endoscopy with EBUS. Lung mass biopsy which is scheduled for 07/[address] Montez((note patient was not on dialysis or anticoagulation when initially scheduled). While hospitalized there was consideration for doing aforementioned procedure. I was later notified by Dr. Mnotez procedure cancelled and cleared to resume heparin IV gtt. Confirmed withThoracic Surgery yesterday procedure rescheduled to 08/05 at 11:30 Left lower extremity DVT. Had bee on Heparin drip and holding transition to oral anticoagulation(NOAC) as she was initially scheduled for another biopsy (discussed above). -transitioned to apixaban today Metabolic encephalopathy, acute Present on admission. CT brain negative. No obvious active infection. Resolved. Possibly due to worsening renal failure. Resolved. Hematuria Reportedly has had bouts of hematuria possibly due to indwelling urinary catheter and/or glomerulonephritis as discussed above. Will probably have abnormal UA at baseline. No reported symptoms Chronic anemia Iron deficiency. Treated with IV iron. Transfused PRBC. -follow H&H Physical deconditioning Hx fall Traumatic rhabdomyolysis Patient has had progressive weakness and with history of fall. She was found to have traumatic rhabdomyolysis on admission which has resolved. She was evaluated by physical therapy on 07/26 who was recommended inpatient rehab on discharge. -Activity as tolerated -Continue with physical therapy while in house. DISPOSITION As above, confirmed with thoracic surgery aforementioned procedure has been rescheduled for 08/05 as outpatient for 07/27). Patient will need SNF with hemodialysis capability. * Liliana Booth RN - 07/30/2024 6:40 AM EST Goals: Problem: Falls: Fall Risk (Adult IP BH) Goal: (Goal) Patient will experience maximum safety and reduce risk for falls. Outcome: Progressing Problem: Falls: Fall Risk (Adult IP BH) Goal: Patient will not fall or injure themselves during hospitalization. Outcome: Progressing Problem: Balance Goal: Patient will maintain balance to allow for safe mobility Outcome: Progressing Identify possible barriers to meeting goals/advancing plan of care: Stability of the patient: Moderately Stable - Low risk of patient condition declining or worsening End of Shift Summary: * Jonny Mathur MD - 07/29/2024 7:49 PM EST Images from the original note were not included. SONYA PROGRESS NOTE Date: 07/29/2024 Author: Jonny Mathur MD Patient ID: Ana Contreras is a 79 y.o. female : 1945 MR#: [id number] SUBJECTIVE Follow up:metabolic encephalopathy, renal failure requiring HD, lung mass HD earlier Improved appetite Allergies Patient has no known allergies. Current Medications: atorvastatin, 10 mg, oral, Nightly B complex-vitamin C-folic acid, 1 each, oral, Daily docusate sodium, 100 mg, oral, BID insulin glargine, 10 Units, subcutaneous, Nightly insulin lispro, 1-6 Units, subcutaneous, Before meals & nightly insulin lispro, 3 Units, subcutaneous, TID AC pantoprazole, 40 mg, oral, q AM AC polyetheylene glycol, 17 g, oral, Daily predniSONE, 60 mg, oral, Daily sodium chloride, 10 mL, intravenous, BID sodium chloride, 10 mL, intravenous, BID sulfamethoxazole-trimethoprim, 160 mg, oral, Once per day on Thursday thiamine, 100 mg, oral, Daily heparin, 18 Units/kg/hr, Last Rate: 23 Units/kg/hr (07/29/24 1133) PRN medications: acetaminophen, acetaminophen, albuterol, benzonatate, dextrose 50%, dextrose 50%, dextrose, dextrose, diphenhydrAMINE, diphenhydrAMINE, EPINEPHrine, famotidine, glucagon injection, heparin OR heparin, hydrALAZINE, hydrocortisone sodium succinate, HYDROmorphone, naloxone, ondanse dena, oxyCODONE, artificial tears, sodium chloride, Insert peripheral IV AND Maintain IV accessAND Saline lock IV AND sodium chloride AND sodium chloride, [COMPLETED] Insert Midline AND Maintain IV access AND Saline lock IV AND sodium chloride AND sodium chloride, sodium chloride, sodium chloride, sodium chloride OBJECTIVE Vitals: 07/29/24 1045 07/29/24 1050 07/29/24 1120 07/29/24 1453 BP: 139/63 139/67 (!) 143/53 (!) 151/63 BP Location: Upper;Left arm Patient Position: Lying Pulse: 66 60 74 76 Resp: 17 18 16 Temp: 36.7 ??C (98 ??F) 36.7 ??C (98 ??F) 36.5 ??C (97.7 ??F) TempSrc: Temporal SpO2: 99% 99% 99% Weight: Height: Vital Signs: as documented above General: No acute distress. Up in bed. Calm/cooperative. HEENT/Neck: Moist mucosa, no icterus, supple Thorax: Hemodialysis catheter left upper anterior chest wall. No accessory muscles use. Clear anteriorly Cardiac: Regular. Abdomen: Not distended,+ bowel sounds, soft, nontender Extremities: No edema, no cyanosis, no calf tenderness Mental Status: Awake, alert Neurological: No localizing weakness. Gait not tested : Deferred LABS HEMATOLOGY Lab Results Component Value Date WBC 7.3 07/29/2024 HGB 6.7 (L) 07/29/2024 HCT 21.7 (L) 07/29/2024 MCV 82.8 07/29/2024 PLT 146 07/29/2024 CHEMISTRY Lab Results Component Value Date GLUCOSE 267 (H) 07/29/2024 NA 131 (L) 07/29/2024 K 4.2 07/29/2024 CO2 31 07/29/2024 CL 95 (L) 07/29/2024 BUN 49 (H) 07/29/2024 CREATININE 3.73 (H) 07/29/2024 EGFR 12 (L) 07/29/2024 CALCIUM 7.8 (L) 07/29/2024 MG 2.2 07/17/2024 PHOS 2.9 07/17/2024 ANIONGAP 5 07/29/2024 Imaging: IR Bx Ndl Renal Perc Left Narrative: INDICATION: Acute renal failure PROCEDURE: Consent obtained for CT guided random core renal biopsy under conscious sedation. prior relevant studies: PET/CT from May 03, 2024 MEDICATIONS: Local anesthesia: 8 cc of 1% buffered lidocaine administered subcutaneously. Sedation: Moderate intravenous sedation was initiated and maintained for 30 minutes while the patient was independently monitored by the radiology nurse under the supervision of the interventional radiologist. A total of 1.5 mg of Versed and 50 mcg of fentanyl administered during the procedure. Scanner: [employer] [address] Dose reduction technique: AEC (automated exposure control) Dose: total exam DLP 373 mGY per cm TECHNIQUE: Patient placed prone on the CT table and multiple axial images obtained through the kidneys. Appropriate area the skin overlying the left kidney was marked, draped and prepped using maximum sterile barrier. Moderate sedation initiated with administration of local anesthetic. Under CT fluo roscopic guidance a 17-gauge coaxial needle was advanced into the periphery of the localized kidney. 3 18-gauge core biopsy samples obtained. Gelfoam slurry was injected through the coaxial needle along the perinephric space. FINDINGS: Initial limited CT images of the abdomen demonstrate normal-sized kidneys bilaterally. Left lower pole localized for biopsy. Images obtained during localization and needle positioning demonstrate coaxial needle positioned within the periphery of the localized kidney. Images obtained after biopsy demonstrate no significant postbiopsy hemorrhage. Gelfoam slurry notedalong the liver capsule at site of needle insertion. SPECIMENS: Core biopsy samples placed in sterile saline and sent to the pathology department. Impression: CT-guided random core renal biopsy using coaxial technique. -------- FINAL REPORT -------- Dictated By: Fela Palomo Dictated Date: 07/22/2024 16:58 ET Assigned Physician: Fela Palomo Reviewed and Electronically Signed By: Fela Palomo Signed Date: 07/22/2024 17:00 ET Workstation ID: [id number] Transcribed By: Self Edit Transcribed Date: 07/22/2024 16:58 ET ASSESSMENT & PLAN Acute on chronic kidney injury Glomerulonephritis CKD3a Requiring acute HD On hemodialysis(MWF). Patient had been on prednisone and on TMP-SMX MWF. pending results of renal biopsy. 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 Retuximab ordered -Next HD Thursday Metabolic encephalopathy, acute Resolved. Possibly due to worsening renal failure. Chronic anemia Iron deficiency. Treated with IV iron. Transfused PRBC. -follow H&H Hematuria Reportedly has had bouts of hematuria possibly due to indwelling urinary catheter and/or glomerulonephritis as discussed above -Monitor Right upper lobe pulmonary nodules/right lung mass. Noted by previous provider, patient had CT-guided biopsy on 05/23/2024 which was nondiagnostic. Shehad been referred to thoracic team and plan is for endoscopy with EBUS. Lung mass biopsy which is scheduled for 07/[address] Montez. Later notified by Dr. Montez procedure cancelled and cleared to resume heparin IV gtt -Thoracic Surgery rescheduled to 08/05 Left lower extremity DVT. Remains on Heparin drip and holding transition to oral anticoagulation(NOAC) as she was initially scheduled for another biopsy (above). Traumatic rhabdomyolysis Resolved DISPOSITION As above, confirmed with thoracic surgery aforementioned procedure has been rescheduled for 08/05(note patient had not been on dialysis or anticoagulation when initially scheduled as outpatient for 07/27). Patient will need SNF with hemodialysis capability. * Sara Stallings RN - 07/29/2024 3:21 PM EST CM Progress Note DANITZA: pending bed availability Barriers: HD bed availability Plan: SNF ,pending bed offer * Louis Welch RN - 07/29/2024 10:50 AM EST 07/29/24 1050 Vital Signs Patient Identification Yes Temp 36.7 ??C (98 ??F) Temp Source Temporal Heart Rate 60 Heart Rate Source Left;Brachial Resp 17 BP 139/67 MAP (Device/Manual Entry) 90 mmHg MAP (Calculated) 91 mm Hg BP Method Automatic BP Location Upper;Left arm Patient Position Lying CO2 Monitor (mmHg) (n/a) Arterial Line BP (n/a) Arterial Line MAP (mmHg) (n/a) SpO2 99 % (Room Air) Post-Hemodialysis Assessment Rinseback Volume (mL) 150 mL Total Liters Processed (L/min) 85.2 L/min Dialyzer Clearance Lightly streaked Duration of Treatment (minutes) 210 minutes Hemodialysis Output (mL) 2000 mL Patient Response to Treatment/Comments Pt tolerated 3.5 hr hemodialysis tx well. 2.0 L net fluid removed. No new complaints. Pt stable post-tx and at transport back to room. Report given to primary nurse Melany Agarwal RN, Next Hemodialysis tx Thursday08/01/2024 Weight (Unable to obtain accurate weight) * Nelli Schmidt OT - 07/29/2024 9:00 AM EST Therapy session was attempted for Handley A Contreras by Nelli Schmidt OT on 07/29/2024. The patient was unable to be seen for the following reason(s): Out of room at a medical procedure. Pt at dialysis Plan for return visit: Tomorrow * Miguel Quiles MD - 07/29/2024 7:58 AM EST Images from the original note were not included. Progress Note CHIEF COMPLAINT F/u SUBJECTIVE Patient seen and examined on HD No complaints MEDICAL HISTORY Past Medical History: Diagnosis Date Anemia Arthritis Blindness Decreased vision 11/29/2014 DX:Decreased vision Diabetes mellitus, type 2 (CMS/HCC) 02/14/2014 DX:Diabetes mellitus, type 2 (HCC) DVT, lower extremity (CMS/HCC) LEFT LEG Family history of early CAD 03/01/2014 DX:Family history of early CAD Family history of factor V Leiden mutation 12/12/2015 DX:Family history of factor V Leiden mutation History of renal dialysis CURRENT VIA [facility] (hearing loss) Hyperlipidemia 02/14/2014 DX:Hyperlipidemia Hypertension 02/14/2014 DX:Hypertension Joint pain Lung nodule Microalbuminuria 09/22/2016 DX:Microalbuminuria Osteoporosis 02/14/2014 DX:Osteoporosis MEDICATIONS atorvastatin, 10 mg, oral, Nightly B complex-vitamin C-folic acid, 1 each, oral, Daily docusate sodium, 100 mg, oral, BID insulin glargine, 10 Units, subcutaneous, Nightly insulin lispro, 1-6 Units, subcutaneous, Before meals & nightly insulin lispro, 3 Units, subcutaneous, TID AC pantoprazole, 40 mg, oral, q AM AC polyetheylene glycol, 17 g, oral, Daily predniSONE, 60 mg, oral, Daily sodium chloride, 10 mL, intravenous, BID sodium chloride, 10 mL, intravenous, BID sulfamethoxazole-trimethoprim, 160 mg, oral, Once per day on Thursday thiamine, 100 mg, oral, Daily PRN medications: acetaminophen, acetaminophen, albuterol, benzonatate, dextrose 50%, dextrose 50%, dextrose, dextrose, diphenhydrAMINE, diphenhydrAMINE, EPINEPHrine, famotidine, glucagon injection, heparin OR heparin, hydrALAZINE, hydrocortisone sodium succinate, HYDROmorphone, naloxone, ondanse dena, oxyCODONE, artificial tears, sodium chloride, Insert peripheral IV AND Maintain IV accessAND Saline lock IV AND sodium chloride AND sodium chloride, [COMPLETED] Insert Midline AND Maintain IV access AND Saline lock IV AND sodium chloride AND sodium chloride, sodium chloride, sodium chloride, sodium chloride heparin, 18 Units/kg/hr, Last Rate: 23 Units/kg/hr (07/28/24 2301) OBJECTIVE Vital signs in last 24 hours: Visit Vitals BP (!) 150/77 Pulse 86 Temp 36.5 ??C (97.7 ??F) (Temporal) Resp 16 Intake/Output last 24 hours: Intake/Output Summary (Last 24 hours) at 07/29/2024 0758 Last data filed at 07/29/2024 0730 Gross per 24 hour Intake 58.3 ml Output 0 ml Net 58.3 ml Weights: Admission Weight: Weight: 72.6 kg (160 lb) Wt Readings from Last 3 Encounters: 07/29/24 74.6 kg (164 lb 6.4 oz) 06/17/24 76.2 kg (168 lb) 06/13/24 76.5 kg (168 lb 9.6 oz) Physical Exam: General: No acute distress HEENT: Normocephalic, atraumatic, anicteric Cardiovascular: S1 S2 normal Respiratory: unlabored Gl: soft non-distended Extremities: No cyanosis Neurological: Alert Integumentary: no rash Psych: Calm, cooperative LABS Results from last 7 days Lab Units 07/29/24 0554 07/28/24 0951 07/27/24 1525 WBC AUTO K/mcL 7.3 13.0* 17.5* HEMOGLOBIN g/dL 6.7* 8.0* 8.3* HEMATOCRIT % 21.7* 26.5* 27.7* MCV FL 82.8 84.9 83.7 PLATELETS K/mcL 146 158 147 Results from last 7 days Lab Units 07/29/24 0554 07/28/24 0951 07/27/24 1342 CREATININE mg/dL 3.73* 2.82* 1.53* BUN mg/dL 49* 32* 17 SODIUM mmol/L 131* 134 131* POTASSIUM mmol/L 4.2 4.0 3.8 CHLORIDE mmol/L 95* 95* 97 CO2 mmol/L 31 29 28 Phosphorus Date Value Ref Range Status 07/17/2024 2.9 2.5 - 4.5 mg/dL Final 07/15/2024 4.2 2.5 - 4.5 mg/dL Final 07/13/2024 3.0 2.5 - 4.5 mg/dL Final PTH Date Value Ref Range Status 07/10/2024 10.5 (L) 18.5 - 88.0 pcg/mL Final 07/08/2024 6.5 (L) 18.5 - 88.0 pcg/mL Final Iron Date Value Ref Range Status 07/08/2024 20 (L) 40 - 150 mcg/dL Final Comment: Hemolysis present 05/31/2024 14 (L) 40 - 150 mcg/dL Final TIBC Date Value Ref Range Status 07/08/2024 186 (L) 250 - 450 mcg/dL Final 05/31/2024 278 250 - 450 mcg/dL Final Ferritin Date Value Ref Range Status 07/08/2024 708 (H) 8 - 252 ng/mL Final 05/31/2024 294 (H) 8 - 252 ng/mL Final No results found for: COLORUA , CLARITYUA , SPECGRAVUA , PHUA , PROTUA , GLUCOSEUA , KETONESUA , BILIRUBINUA , BLOODUA , UROBILINOGUA , NITRITEUA IMPRESSION and PLAN RENE Granulomatosis with polyangiitis (GP?) Hyponatremia Anemia CKD 3 S/p Rituximab infusion (700 mg) yesterday S/p IV pulse steroid on oral prednisone Preliminary kidney biopsy result (07/22) c/w crescentic necrotizing glomerulonephritis High PR3 c/w granulomatosis with polyangiitis (GP?) RENE remains HD dependent with no sign of recovery yet No obstruction by renal US Significant proteinuria MAC 3.6 mg/g No M spike on SPEP Negative hepatitis B surface Ag Low C3 Normal C4 MPO Ab negative PR3 Ab positive 165 Scr ~ 1.13 mg/dl on 01/24 Nephrogenic anemia Iron deficiency REC Rituximab infusion in 2 weeks HD today Optimize volume status C/w prednisone 60 mg daily PPI Bactrim DS thrice weekly (M-W-F) Lung mass biopsy with Dr. Montez Renal diet Outpatient HD arranged at [facility] 1st shift [phone]) Consider [facility] or [facility] if going to SNF Miguel Quiles MD * Sharon Solis RN - 07/29/2024 4:07 AM EST Goals: Identify possible barriers to meeting goals/advancing plan of care: Stability of the patient: Unstable - High likelihood or risk of patient condition declining or worsening End of Shift Summary: Problem: Falls: Fall Risk (Adult IP BH) Goal: (Goal) Patient will experience maximum safety and reduce risk for falls. Outcome: Progressing Goal: Patient will not fall or injure themselves during hospitalization. Outcome: Progressing * Melany Agarwal RN - 07/28/2024 5:57 PM EST Goals: Identify possible barriers to meeting goals/advancing plan of care: heparin drip, dialysis, SNF placement Stability of the patient: Moderately Stable - Low risk of patient condition declining or worsening End of Shift Summary: repositioned, family at bedside, call chavarria within reach * Jonny Mathur MD - 07/28/2024 4:27 PM EST Images from the original note were not included. SONYA PROGRESS NOTE Date: 07/28/2024 Author: Jonny Mathur MD Patient ID: Ana Contreras is a 79 y.o. female : 1945 MR#: [id number] SUBJECTIVE Follow up:metabolic encephalopathy, renal failure requiring HD, lung mass Patient seen earlier this AM Offers no new symptoms Heparin IV gtt resumed yesterday Allergies Patient has no known allergies. Current Medications: atorvastatin, 10 mg, oral, Nightly B complex-vitamin C-folic acid, 1 each, oral, Daily docusate sodium, 100 mg, oral, BID insulin glargine, 10 Units, subcutaneous, Nightly insulin lispro, 1-6 Units, subcutaneous, Before meals & nightly insulin lispro, 3 Units, subcutaneous, TID AC pantoprazole, 40 mg, oral, q AM AC polyetheylene glycol, 17 g, oral, Daily predniSONE, 60 mg, oral, Daily sodium chloride, 10 mL, intravenous, BID sodium chloride, 10 mL, intravenous, BID sulfamethoxazole-trimethoprim, 160 mg, oral, Once per day on Thursday thiamine, 100 mg, oral, Daily heparin, 18 Units/kg/hr, Last Rate: 26 Units/kg/hr (07/28/24 1339) PRN medications: acetaminophen, acetaminophen, albuterol, benzonatate, dextrose 50%, dextrose 50%, dextrose, dextrose, diphenhydrAMINE, diphenhydrAMINE, EPINEPHrine, famotidine, glucagon injection, heparin OR heparin, hydrALAZINE, hydrocortisone sodium succinate, HYDROmorphone, naloxone, ondanse dena, oxyCODONE, artificial tears, sodium chloride, Insert peripheral IV AND Maintain IV accessAND Saline lock IV AND sodium chloride AND sodium chloride, [COMPLETED] Insert Midline AND Maintain IV access AND Saline lock IV AND sodium chloride AND sodium chloride, sodium chloride, sodium chloride, sodium chloride OBJECTIVE Vitals: 07/28/24 0300 07/28/24 0551 07/28/24 0928 07/28/24 1552 BP: 135/50 126/50 136/55 BP Location: Left arm Left arm Patient Position: Lying Sitting Pulse: 88 (!) 116 97 Resp: 18 18 16 Temp: 36.5 ??C (97.7 ??F) 36.8 ??C (98.2 ??F) 37.2 ??C (99 ??F) TempSrc: Oral Oral SpO2: 98% 99% 98% Weight: 73.2 kg (161 lb 6.4 oz) Height: Vital Signs: as documented above General: No acute distress. Up in bed. Calm/cooperative. HEENT/Neck: Moist mucosa, no icterus, supple Thorax: Hemodialysis catheter left upper anterior chest wall. No accessory muscles use. Clear anteriorly Cardiac: Regular. Abdomen: Not distended,+ bowel sounds, soft, nontender Extremities: No edema, no cyanosis, no calf tenderness Mental Status: Awake, alert Neurological: No localizing weakness. Gait not tested : Deferred LABS HEMATOLOGY Lab Results Component Value Date WBC 13.0 (H) 07/28/2024 HGB 8.0 (L) 07/28/2024 HCT 26.5 (L) 07/28/2024 MCV 84.9 07/28/2024 PLT 158 07/28/2024 CHEMISTRY Lab Results Component Value Date GLUCOSE 220 (H) 07/28/2024 NA 134 07/28/2024 K 4.0 07/28/2024 CO2 29 07/28/2024 CL 95 (L) 07/28/2024 BUN 32 (H) 07/28/2024 CREATININE 2.82 (H) 07/28/2024 EGFR 16 (L) 07/28/2024 CALCIUM 7.9 (L) 07/28/2024 MG 2.2 07/17/2024 PHOS 2.9 07/17/2024 ANIONGAP 10 07/28/2024 Imaging: IR Bx Ndl Renal Perc Left Narrative: INDICATION: Acute renal failure PROCEDURE: Consent obtained for CT guided random core renal biopsy under conscious sedation. prior relevant studies: PET/CT from May 03, 2024 MEDICATIONS: Local anesthesia: 8 cc of 1% buffered lidocaine administered subcutaneously. Sedation: Moderate intravenous sedation was initiated and maintained for 30 minutes while the patient was independently monitored by the radiology nurse under the supervision of the interventional radiologist. A total of 1.5 mg of Versed and 50 mcg of fentanyl administered during the procedure. Scanner: [employer] [address] Dose reduction technique: AEC (automated exposure control) Dose: total exam DLP 373 mGY per cm TECHNIQUE: Patient placed prone on the CT table and multiple axial images obtained through the kidneys. Appropriate area the skin overlying the left kidney was marked, draped and prepped using maximum sterile barrier. Moderate sedation initiated with administration of local anesthetic. Under CT fluo roscopic guidance a 17-gauge coaxial needle was advanced into the periphery of the localized kidney. 3 18-gauge core biopsy samples obtained. Gelfoam slurry was injected through the coaxial needle along the perinephric space. FINDINGS: Initial limited CT images of the abdomen demonstrate normal-sized kidneys bilaterally. Left lower pole localized for biopsy. Images obtained during localization and needle positioning demonstrate coaxial needle positioned within the periphery of the localized kidney. Images obtained after biopsy demonstrate no significant postbiopsy hemorrhage. Gelfoam slurry notedalong the liver capsule at site of needle insertion. SPECIMENS: Core biopsy samples placed in sterile saline and sent to the pathology department. Impression: CT-guided random core renal biopsy using coaxial technique. -------- FINAL REPORT -------- Dictated By: Fela Palomo Dictated Date: 07/22/2024 16:58 ET Assigned Physician: Fela Palomo Reviewed and Electronically Signed By: Fela Palomo Signed Date: 07/22/2024 17:00 ET Workstation ID: [id number] Transcribed By: Self Edit Transcribed Date: 07/22/2024 16:58 ET ASSESSMENT & PLAN Acute on chronic kidney injury Glomerulonephritis CKD3a Requiring acute HD On hemodialysis(MWF). Patient had been on prednisone and on TMP-SMX MWF. pending results of renal biopsy. 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 Retuximab ordered -HD tomorrow Metabolic encephalopathy, acute Resolved. Possibly due to worsening renal failure. Chronic anemia Iron deficiency. Treated with IV iron. Transfused PRBC. -follow H&H Hematuria Reportedly has had bouts of hematuria possibly due to indwelling urinary catheter. -Monitor Left lower extremity DVT. Remains on Heparin drip and holding transition to oral anticoagulation(NOAC) as she is scheduled for another biopsy (see below). Right upper lobe pulmonary nodules/right lung mass. Noted by previous provider, patient had CT-guided biopsy on 05/23/2024 which was nondiagnostic. Shehad been referred to thoracic team and plan is for endoscopy with EBUS. Lung mass biopsy which is scheduled for 07/[address] Montez. Later notified by Dr. Montez procedure cancelled and cleared to resume heparin IV gtt -reached out to Thoracic Surgery re timing of aforementioned procedure(inpatient vs outpatient? Traumatic rhabdomyolysis Resolved DISPOSITION As mentioned above, EBUS w/bx originally scheduled for 07/27 has been canceled. Thoracic surgery to determine whether can be done as inpatient. Keeping on IV heparin for now. Will likely require SNF when ready for discharge. * Florecita Camara, PT - 07/28/2024 2:45 PM EST Physical Therapy Therapy session was attempted for Handley A Contreras by Florecita Camara PT on 07/28/2024. The patient was unable to be seen for the following reason(s): Other: Per nurse, she was about to start new medicine for her. She asked to defer PT for today Plan for return visit: Tomorrow * Jules Woods OT - 07/28/2024 11:25 AM EST Therapy session was attempted for Ana A Contreras by Jules Woods OT on 07/28/2024. The patient was unable to be seen for the following reason(s): Pt present with multiple visitors at time of arrival, agreeable to trial later session. Plan for return visit: Later today for additional attempt * Miguel Quiles MD - 07/28/2024 10:35 AM EST Images from the original note were not included. Progress Note CHIEF COMPLAINT F/u SUBJECTIVE Patient seen and examined No complaints D/w medical attending D/w [facility] [facility] MEDICAL HISTORY Past Medical History: Diagnosis Date Anemia Arthritis Blindness Decreased vision 11/29/2014 DX:Decreased vision Diabetes mellitus, type 2 (CMS/HCC) 02/14/2014 DX:Diabetes mellitus, type 2 (HCC) DVT, lower extremity (CMS/HCC) LEFT LEG Family history of early CAD 03/01/2014 DX:Family history of early CAD Family history of factor V Leiden mutation 12/12/2015 DX:Family history of factor V Leiden mutation History of renal dialysis CURRENT VIA [facility] (hearing loss) Hyperlipidemia 02/14/2014 DX:Hyperlipidemia Hypertension 02/14/2014 DX:Hypertension Joint pain Lung nodule Microalbuminuria 09/22/2016 DX:Microalbuminuria Osteoporosis 02/14/2014 DX:Osteoporosis MEDICATIONS atorvastatin, 10 mg, oral, Nightly B complex-vitamin C-folic acid, 1 each, oral, Daily docusate sodium, 100 mg, oral, BID insulin glargine, 10 Units, subcutaneous, Nightly insulin lispro, 1-6 Units, subcutaneous, Before meals & nightly insulin lispro, 3 Units, subcutaneous, TID AC pantoprazole, 40 mg, oral, q AM AC polyetheylene glycol, 17 g, oral, Daily predniSONE, 60 mg, oral, Daily sodium chloride, 10 mL, intravenous, BID sodium chloride, 10 mL, intravenous, BID sulfamethoxazole-trimethoprim, 160 mg, oral, Once per day on Thursday thiamine, 100 mg, oral, Daily PRN medications: acetaminophen, benzonatate, dextrose 50%, dextrose 50%, dextrose, dextrose, glucagon injection, heparin OR heparin, hydrALAZINE, HYDROmorphone, naloxone, ondansetron, oxyCODONE, artificial tears, Insert peripheral IV AND Maintain IV access AND Saline lock IV AND sodium chloride AND sodium chloride, [COMPLETED] Insert Midline AND Maintain IV access AND Saline lock IV AND sodium chloride AND sodium chloride, sodium chloride, sodium chloride, sodium chloride heparin, 18 Units/kg/hr, Last Rate: 22 Units/kg/hr (07/28/24 0339) OBJECTIVE Vital signs in last 24 hours: Visit Vitals BP 126/50 Pulse (!) 116 Temp 36.8 ??C (98.2 ??F) Resp 18 Intake/Output last 24 hours: Intake/Output Summary (Last 24 hours) at 07/28/2024 1035 Last data filed at 07/27/2024 2201 Gross per 24 hour Intake 10 ml Output 3000 ml Net -2990 ml Weights: Admission Weight: Weight: 72.6 kg (160 lb) Wt Readings from Last 3 Encounters: 07/28/24 73.2 kg (161 lb 6.4 oz) 06/17/24 76.2 kg (168 lb) 06/13/24 76.5 kg (168 lb 9.6 oz) Physical Exam: General: No acute distress HEENT: Normocephalic, atraumatic, anicteric Cardiovascular: S1 S2 normal Respiratory: unlabored Gl: soft non-distended Extremities: No cyanosis Neurological: Alert Integumentary: no rash Psych: Calm, cooperative LABS Results from last 7 days Lab Units 07/27/24 1525 07/27/24 0627 07/25/24 0535 WBC AUTO K/mcL 17.5* 12.4* 12.4* 14.2* HEMOGLOBIN g/dL 8.3* 7.7* 7.7* 8.0* HEMATOCRIT % 27.7* 25.5* 25.5* 25.7* MCV FL 83.7 83.3 83.3 82.1 PLATELETS K/mcL 147 143 143 158 Results from last 7 days Lab Units 07/27/24 1342 07/27/24 0627 07/25/24 0535 CREATININE mg/dL 1.53* 3.88* 3.91* BUN mg/dL 17 62* 77* SODIUM mmol/L 131* 130* 132* POTASSIUM mmol/L 3.8 4.2 4.2 CHLORIDE mmol/L 97 93* 94* CO2 mmol/L 28 30 30 Phosphorus Date Value Ref Range Status 07/17/2024 2.9 2.5 - 4.5 mg/dL Final 07/15/2024 4.2 2.5 - 4.5 mg/dL Final 07/13/2024 3.0 2.5 - 4.5 mg/dL Final PTH Date Value Ref Range Status 07/10/2024 10.5 (L) 18.5 - 88.0 pcg/mL Final 07/08/2024 6.5 (L) 18.5 - 88.0 pcg/mL Final Iron Date Value Ref Range Status 07/08/2024 20 (L) 40 - 150 mcg/dL Final Comment: Hemolysis present 05/31/2024 14 (L) 40 - 150 mcg/dL Final TIBC Date Value Ref Range Status 07/08/2024 186 (L) 250 - 450 mcg/dL Final 05/31/2024 278 250 - 450 mcg/dL Final Ferritin Date Value Ref Range Status 07/08/2024 708 (H) 8 - 252 ng/mL Final 05/31/2024 294 (H) 8 - 252 ng/mL Final No results found for: COLORUA , CLARITYUA , SPECGRAVUA , PHUA , PROTUA , GLUCOSEUA , KETONESUA , BILIRUBINUA , BLOODUA , UROBILINOGUA , NITRITEUA IMPRESSION and PLAN RENE Granulomatosis with polyangiitis (GP?) Hyponatremia Anemia CKD 3 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 Montez Renal diet Outpatient HD arranged at [facility] -- 1st shift [phone]) Consider Kana Jolene or Kathleenwasusanna if going to [facility] Miguel Quiles MD * Jonny Mathur MD - 07/27/2024 7:02 PM EST Images from the original note were not included. SONYA PROGRESS NOTE Date: 07/27/2024 Author: Jonny Mathur MD Patient ID: Ana Contreras is a 79 y.o. female : 1945 MR#: [id number] SUBJECTIVE Follow up:metabolic encephalopathy, renal failure requiring HD, lung mass Had hemodialysis earlier. I was later notified by thoracic surgery planned for EBUS w/bx originally scheduled for today has been canceled Patient offering no new symptoms/complaints. Allergies Patient has no known allergies. Current Medications: atorvastatin, 10 mg, oral, Nightly B complex-vitamin C-folic acid, 1 each, oral, Daily docusate sodium, 100 mg, oral, BID insulin glargine, 10 Units, subcutaneous, Nightly insulin lispro, 1-6 Units, subcutaneous, Before meals & nightly insulin lispro, 3 Units, subcutaneous, TID AC pantoprazole, 40 mg, oral, q AM AC polyetheylene glycol, 17 g, oral, Daily predniSONE, 60 mg, oral, Daily sodium chloride, 10 mL, intravenous, BID sodium chloride, 10 mL, intravenous, BID sulfamethoxazole-trimethoprim, 160 mg, oral, Once per day on Thursday thiamine, 100 mg, oral, Daily heparin, 18 Units/kg/hr, Last Rate: 25 Units/kg/hr (07/27/24 1513) PRN medications: acetaminophen, benzonatate, dextrose 50%, dextrose 50%, dextrose, dextrose, glucagon injection, heparin OR heparin, hydrALAZINE, HYDROmorphone, naloxone, ondansetron, oxyCODONE, artificial tears, Insert peripheral IV AND Maintain IV access AND Saline lock IV AND sodium chloride AND sodium chloride, [COMPLETED] Insert Midline AND Maintain IV access AND Saline lock IV AND sodium chloride AND sodium chloride, sodium chloride, sodium chloride, sodium chloride OBJECTIVE Vitals: 07/27/24 1115 07/27/24 1120 07/27/24 1157 07/27/24 1531 BP: 121/64 136/68 (!) 148/68 112/53 BP Location: Left arm Left arm Patient Position: Lying Sitting Pulse: 74 74 89 85 Resp: 16 15 18 Temp: 36.4 ??C (97.5 ??F) 36.1 ??C (97 ??F) 36.6 ??C (97.8 ??F) TempSrc: Temporal Temporal SpO2: 99% 100% 98% Weight: Height: Vital Signs: as documented above General: No acute distress. Up in bed. Calm/cooperative. HEENT/Neck: Moist mucosa, no icterus, supple Thorax: Hemodialysis catheter left upper anterior chest wall. No accessory muscles use. Clear anteriorly Cardiac: Regular. No murmur appreciated Abdomen: Not distended,+ bowel sounds, soft, nontender Extremities: No edema, no cyanosis, no calf tenderness Mental Status: Awake, alert Neurological: No localizing weakness. Gait not tested : Deferred LABS HEMATOLOGY Lab Results Component Value Date WBC 17.5 (H) 07/27/2024 HGB 8.3 (L) 07/27/2024 HCT 27.7 (L) 07/27/2024 MCV 83.7 07/27/2024 PLT 147 07/27/2024 CHEMISTRY Lab Results Component Value Date GLUCOSE 213 (H) 07/27/2024 NA 131 (L) 07/27/2024 K 3.8 07/27/2024 CO2 28 07/27/2024 CL 97 07/27/2024 BUN 17 07/27/2024 CREATININE 1.53 (H) 07/27/2024 EGFR 34 (L) 07/27/2024 CALCIUM 7.9 (L) 07/27/2024 MG 2.2 07/17/2024 PHOS 2.9 07/17/2024 ANIONGAP 6 07/27/2024 Imaging: IR Bx Ndl Renal Perc Left Narrative: INDICATION: Acute renal failure PROCEDURE: Consent obtained for CT guided random core renal biopsy under conscious sedation. prior relevant studies: PET/CT from May 03, 2024 MEDICATIONS: Local anesthesia: 8 cc of 1% buffered lidocaine administered subcutaneously. Sedation: Moderate intravenous sedation was initiated and maintained for 30 minutes while the patient was independently monitored by the radiology nurse under the supervision of the interventional radiologist. A total of 1.5 mg of Versed and 50 mcg of fentanyl administered during the procedure. Scanner: [employer] [address] Dose reduction technique: AEC (automated exposure control) Dose: total exam DLP 373 mGY per cm TECHNIQUE: Patient placed prone on the CT table and multiple axial images obtained through the kidneys. Appropriate area the skin overlying the left kidney was marked, draped and prepped using maximum sterile barrier. Moderate sedation initiated with administration of local anesthetic. Under CT fluo roscopic guidance a 17-gauge coaxial needle was advanced into the periphery of the localized kidney. 3 18-gauge core biopsy samples obtained. Gelfoam slurry was injected through the coaxial needle along the perinephric space. FINDINGS: Initial limited CT images of the abdomen demonstrate normal-sized kidneys bilaterally. Left lower pole localized for biopsy. Images obtained during localization and needle positioning demonstrate coaxial needle positioned within the periphery of the localized kidney. Images obtained after biopsy demonstrate no significant postbiopsy hemorrhage. Gelfoam slurry notedalong the liver capsule at site of needle insertion. SPECIMENS: Core biopsy samples placed in sterile saline and sent to the pathology department. Impression: CT-guided random core renal biopsy using coaxial technique. -------- FINAL REPORT -------- Dictated By: Fela Palomo Dictated Date: 07/22/2024 16:58 ET Assigned Physician: Fela Palomo Reviewed and Electronically Signed By: Fela Palomo Signed Date: 07/22/2024 17:00 ET Workstation ID: [id number] Transcribed By: Self Edit Transcribed Date: 07/22/2024 16:58 ET ASSESSMENT & PLAN Acute on chronic kidney injury Glomerulonephritis CKD3a Requiring acute HD -Continuing hemodialysis(MWF), will need to coordinate next HD with upcoming thoracic procedure tomorrow(see below) -Continue prednisone, prophylactic [id number] -Follow-up pathology Metabolic encephalopathy, acute Resolved. Possibly due to worsening renal failure. Chronic anemia Iron deficiency. Treated with IV iron. Transfused PRBC. -follow H&H Hematuria Reportedly has had bouts of hematuria possibly due to indwelling urinary catheter. -Monitor Left lower extremity DVT. Remains on Heparin drip and holding transition to oral anticoagulation(NOAC) as she is scheduled for another biopsy (see below). Right upper lobe pulmonary nodules/right lung mass. Noted by previous provider, patient had CT-guided biopsy on 05/23/2024 which was nondiagnostic. Shehad been referred to thoracic team and plan is for endoscopy with EBUS. Lung mass biopsy which is scheduled for today with Dr. Montez. -Notified by Dr. Montez procedure cancelled today -resume heparin IV gtt Traumatic rhabdomyolysis Resolved DISPOSITION As mentioned above, EBUS w/bx originally scheduled for today has been canceled. Thoracic surgery todetermine whether can be done as inpatient. Keeping on IV heparin for now. Will likely require SNF when ready for discharge. * Mehnaz Medina RN - 07/27/2024 6:53 PM EST Problem: Falls: Fall Risk (Adult IP BH) Goal: (Goal) Patient will experience maximum safety and reduce risk for falls. Outcome: Progressing Goal: Patient will not fall or injure themselves during hospitalization. Outcome: Progressing Problem: Balance Goal: Patient will demonstrate Intervention to enhance balance for safe completion of daily activities Outcome: Progressing Goal: Patient will maintain balance Outcome: Progressing Goal: Patient will maintain balance to allow for safe mobility Outcome: Progressing Goal: Patient will maintain standing and sitting balance to allow for completion of daily activities Outcome: Progressing Goal: Patient will tolerate standing Outcome: Progressing Goal: Maintains dynamic standing balance with upper extremity support Outcome: Progressing Goal: Maintains dynamic standing balance without upper extremity support Outcome: Progressing Goal: Maintains static standing balance with upper extremity support Outcome: Progressing Goal: Maintains static standing balance without upper extremity support Outcome: Progressing Goal: Maintains static sitting balance with upper extremity support Outcome: Progressing Goal: Maintains static sitting balance without upper extremity support Outcome: Progressing Goal: Maintains dynamic sitting balance with upper extremity support Outcome: Progressing Goal: Maintains dynamic sitting balance without upper extremity support Outcome: Progressing Problem: Mobility Goal: Patient will be able to go up and down a curb/step with the appropriate device Outcome: Progressing Goal: Patient will propel wheelchair household/community distances Outcome: Progressing Goal: Patient will demonstrate kitchen mobility Outcome: Progressing Goal: Patient will recall and demonstrate 3 out of 3 total hip precautions during mobility Outcome: Progressing Goal: Patient will ambulate community distance Outcome: Progressing Goal: Patient will propel wheelchair household distances Outcome: Progressing Goal: Patient will ambulate household distance Outcome: Progressing Goal: Patient will navigate 4-6 steps with rails/device Outcome: Progressing Goal: Patient will demonstrate safe mobility requirements Outcome: Progressing Goal: Patient will propel the wheelchair Outcome: Progressing Goal: Patient will ambulate Outcome: Progressing Goal: Patient will ambulate up and down a curb/step Outcome: Progressing Goal: Patient will ascend and descend four to six stairs Outcome: Progressing Goal: Patient will ascend and descend a flight of stairs Outcome: Progressing Problem: Safety Goal: Patient will adhere to precautions during ADL's and transfers Outcome: Progressing Goal: Patient will demonstrate safety requirements appropriate to situation/environment Outcome: Progressing Goal: Patient will utilize safety techniques Outcome: Progressing Goal: Patient locks brakes on wheelchair Outcome: Progressing Goal: Patient uses call light consistently to request assistance with transfers Outcome: Progressing Goal: Free from fall injury Outcome: Progressing Problem: Transfers Goal: Patient will transfer to car Outcome: Progressing Goal: Patient will transfer from one surface to another Outcome: Progressing Goal: Patient will demonstrate safe transfer techniques Outcome: Progressing Goal: Patient will transfer to commode Outcome: Progressing Goal: Patient will transfer to tub/shower Outcome: Progressing Goal: Patient will transfer from wheelchair to toilet Outcome: Progressing Goal: Transfer from bed to chair. Outcome: Progressing Goal: Patient to transfer to and from sit to supine Outcome: Progressing Goal: Patient will perform bed mobility Outcome: Progressing Goal: Patient will roll Outcome: Progressing Goal: Patient will transfer sit to and from stand Outcome: Progressing Goal: Patient will perform car transfer Outcome: Progressing Goal: Patient will perform toilet transfer Outcome: Progressing Goal: Patient will perform tub/shower transfer Outcome: Progressing Goal: Patient will follow hip precautions during transfers Outcome: Progressing Goal: Patient maintains weight bearing status during transfers Outcome: Progressing Problem: Pain Goal: Patient will manage pain with the appropriate technique/Intervention Outcome: Progressing Goal: Patient will demonstrate intervention for managing pain Outcome: Progressing Goal: Patient will reduce or eliminate use of analgesics Outcome: Progressing Goal: Pain is manageable through therapies Outcome: Progressing Goal: Patient will verbalize an acceptable level of pain Outcome: Progressing Goal: Patients pain is managed to allow active participation in daily activities Outcome: Progressing Goal: Patient will increase activity level Outcome: Progressing Goal: Patient verbalizes a reduction in pain level Outcome: Progressing Problem: Compromised Skin Integrity Goal: Patient will be free from infection Outcome: Progressing Goal: Patient will maintain/improve skin integrity through proper skin care techniques Outcome: Progressing Goal: Patient will demonstrate appropriate pressure relief techniques Outcome: Progressing Goal: Patient will demonstrate appropriate skin care techniques Outcome: Progressing Goal: Patient will be free from infection Outcome: Progressing Goal: Patient demonstrates skin care/treatment/dressing change Outcome: Progressing Goal: Patient will maintain good skin integrity Outcome: Progressing Goal: Patient exhibits signs of wound healing. Outcome: Progressing Goal: Patient demonstrates pressure reduction techniques Outcome: Progressing Goal: Patient demonstrates preventative skin care measures Outcome: Progressing Goal: Patient will perform skin checks daily on residual limb Outcome: Progressing Goal: Patient will appropriately don and doff shrinkers and prevent and skin breakdown Outcome: Progressing Goals: dc Identify possible barriers to meeting goals/advancing plan of care: awaiting bronch Stability of the patient: Moderately Stable - Low risk of patient condition declining or worsening End of Shift Summary: on heparin gtt, awaiting bronch which was postponed today * Nalini Caceres RN - 07/27/2024 3:10 PM EST CM Progress Note DANITZA: 07/30 Barriers: dialysis, bronch Plan: SNF * Kayleigh Laguna RD - 07/27/2024 11:28 AM EST 07/27/2024 @ 11:28 AM EST Nutrition Follow Up Note Reason for RD Intervention: Assessment Type: Follow-up Reason for Assessment: High MST Score Anthropometrics: Height: 162.5 cm (63.98 ) Weight: 79.6 kg (175 lb 8 oz) Weight Method: Actual BMI (Calculated): 30.1 BMI Class: Overweight IBW (lbs): 120 Current Diet and Supplements: Dietary Orders (From admission, onward) Start Ordered 07/27/24 0001 Adult NPO diet Location: [facility]; Diet: NPO- Except for Medications Diet effective midnight Question Answer Comment Location [facility] Diet NPO- Except for Medications 07/26/24 1755 07/11/24 1133 Dietary nutrition supplements Two times daily (BID); [facility]; Diabetic Supplement Continuous Question Answer Comment Frequency Two times daily (BID) Location [facility] Supplements Diabetic Supplement 07/11/24 1132 History of presenting illness: Patient is a 79 y.o. female with a history of Past Medical History: Diagnosis Date Anemia Arthritis Blindness Decreased vision 11/29/2014 DX:Decreased vision Diabetes mellitus, type 2 (CMS/HCC) 02/14/2014 DX:Diabetes mellitus, type 2 (HCC) DVT, lower extremity (CMS/HCC) LEFT LEG Family history of early CAD 03/01/2014 DX:Family history of early CAD Family history of factor V Leiden mutation 12/12/2015 DX:Family history of factor V Leiden mutation History of renal dialysis CURRENT VIA [facility] (hearing loss) Hyperlipidemia 02/14/2014 DX:Hyperlipidemia Hypertension 02/14/2014 DX:Hypertension Joint pain Lung nodule Microalbuminuria 09/22/2016 DX:Microalbuminuria Osteoporosis 02/14/2014 DX:Osteoporosis Past Surgical History: Procedure Laterality Date CATARACT EXTRACTION Bilateral 2019 PROCEDURE: HISTORICAL CATARACT REMOVAL OTHER SURGICAL HISTORY 05/2012 PROCEDURE: ---- OTHER ----; COMMENT: lumbar microdiscectomy admitted 07/08/2024 with Acute encephalopathy. Food/Nutrition History: Previous Diet / Nutrition Education / Counseling: Per MST screeening, pt reports weight loss of 24-33 lb in past 3 months, and reports poor PO intake. Pt living by herself prior to admission, but hassupport from children. History of DM- takes glipizide at home. No noted food allergies. Appetite LEDGER CLERK: Poor Intake LEDGER CLERK: Decreased Weight History: Wt Readings from Last 10 Encounters: 07/26/24 79.6 kg (175 lb 8 oz) 06/17/24 76.2 kg (168 lb) 06/13/24 76.5 kg (168 lb 9.6 oz) 06/06/24 76.4 kg (168 lb 6.4 oz) 05/30/24 76.7 kg (169 lb) 05/23/24 76.2 kg (168 lb) 05/13/24 77.6 kg (171 lb) 04/27/24 78.8 kg (173 lb 11.2 oz) 04/18/24 79.8 kg (176 lb) 04/12/24 80.3 kg (177 lb) Subjective Assessment: Pt seen for follow up. Pt not in room during time of visit- in lung biopsy this morning. Currently NPO. Per front end engineer, pt consuming 25-50% of meals since last visit. Likely to be discharged torehab when medically cleared. Current weight 175 lb today, weight trending between 169-181 lb over past week. POCs 128-192. Nutrition-Related Lab Values: Results from last 7 days Lab Units 07/27/24 0627 SODIUM mmol/L 130* POTASSIUM mmol/L 4.2 CHLORIDE mmol/L 93* CO2 mmol/L 30 BUN mg/dL 62* CREATININE mg/dL 3.88* EGFR mL/min/1.73m2 11* CALCIUM mg/dL 8.2* GLUCOSE mg/dL 182* WBC AUTO K/mcL 12.4* 12.4* Lab Results Component Value Date LIPASE <10 (L) 07/12/2024 Medications: atorvastatin, 10 mg, oral, Nightly B complex-vitamin C-folic acid, 1 each, oral, Daily docusate sodium, 100 mg, oral, BID insulin glargine, 10 Units, subcutaneous, Nightly insulin lispro, 1-6 Units, subcutaneous, Before meals & nightly insulin lispro, 3 Units, subcutaneous, TID AC pantoprazole, 40 mg, oral, q AM AC polyetheylene glycol, 17 g, oral, Daily predniSONE, 60 mg, oral, Daily sodium chloride, 10 mL, intravenous, BID sodium chloride, 10 mL, intravenous, BID sulfamethoxazole-trimethoprim, 160 mg, oral, Once per day on Thursday thiamine, 100 mg, oral, Daily CONTINUOUS: heparin, 18 Units/kg/hr, Last Rate: Stopped (07/27/24 0600) PRN medications: acetaminophen, benzonatate, dextrose 50%, dextrose 50%, dextrose, dextrose, glucagon injection, heparin OR heparin, hydrALAZINE, HYDROmorphone, naloxone, ondansetron, oxyCODONE, artificial tears, Insert peripheral IV AND Maintain IV access AND Saline lock IV AND sodium chloride AND sodium chloride, [COMPLETED] Insert Midline AND Maintain IV access AND Saline lock IV AND sodium chloride AND sodium chloride, sodium chloride, sodium chloride, sodium chloride Food/Nutrition-Current Status: Intake Type: P.O. Appetite: Fair Intake Amount (%): 25-50% Intake Assessment: Inadequate Nutrition Focused Physical Findings: Overall Appearance: No visual findings of muscle or fat depletion Skin: Skin intact per front end engineer Nutrition Diagnosis: Code Type: None Identified Status: Other (Comment) (Continuing to monitor for weight loss) Diagnosis: Unintentional Weight Loss Etiology: Changes in taste and appetite or preference Symptoms: pt report of 24-33 lb weight loss in 3 months prior to admission Nutrition Interventions: Meals/Snacks, Medical Food Supplement, Diet Order, Nutrition Education - Advance diet as medically able after surgery- recommend return to IDDSI 7 easy to chew, 2 gm Na, 90 gm carbohydrate/meal. Pt reports difficulty with chewing and does better with softer foods - Continue glucerna BID, neprhocap, 100 mg thiamine for inadequate PO - Follow goals of care discussions. Goals: Patient will tolerate diet progression. , Patient will initially consume at least 50% of meals. , Patient will consume ONS., Monitor/control glucose levels, Improvement in renal labs., Maintain weight., Stooling appropriately., and Maintain skin integrity. Monitoring/Evaluation: Fluid/Beverage Intake, Food Intake, Medical Food Supp/Oral Nutrition Supp, Weight, Renal/Electrolyte Profile, Diet Order Follow Up: Nutrition Priority Level: Moderate Please consult nutrition if needed sooner. RD remains available and will continue to follow. Signature: Kayleigh Laguna RD * Louis Welch RN - 07/27/2024 11:20 AM EST 07/27/24 1120 Vital Signs Patient Identification Yes Temp 36.4 ??C (97.5 ??F) Temp Source Temporal Heart Rate 74 Heart Rate Source Left;Brachial Resp 16 BP 136/68 MAP (Device/Manual Entry) 90 mmHg MAP (Calculated) 91 mm Hg BP Method Automatic BP Location Left arm Patient Position Lying CO2 Monitor (mmHg) (n/a) Arterial Line BP (n/a) Arterial Line MAP (mmHg) (n/a) SpO2 99 % (Room Air) Post-Hemodialysis Assessment Rinseback Volume (mL) 150 mL Total Liters Processed (L/min) 98.2 L/min Dialyzer Clearance Lightly streaked Duration of Treatment (minutes) 240 minutes Hemodialysis Output (mL) 3000 mL Patient Response to Treatment/Comments Pt tolerated 4.0 hr hemodialysis tx well. 3.0 L net fluid removed. No new complaints. Pt stable post-tx and at transport back to room. Report given to primary nurse Mehnaz Medina RN, Next Hemodialysis tx 07/29/2024 Weight (Unable to weight pt) * Miguel Quiles MD - 07/27/2024 10:16 AM EST Images from the original note were not included. Progress Note CHIEF COMPLAINT F/u SUBJECTIVE Patient seen and examined on HD No complaints MEDICAL HISTORY Past Medical History: Diagnosis Date Anemia Arthritis Blindness Decreased vision 11/29/2014 DX:Decreased vision Diabetes mellitus, type 2 (CMS/HCC) 02/14/2014 DX:Diabetes mellitus, type 2 (HCC) DVT, lower extremity (CMS/HCC) LEFT LEG Family history of early CAD 03/01/2014 DX:Family history of early CAD Family history of factor V Leiden mutation 12/12/2015 DX:Family history of factor V Leiden mutation History of renal dialysis CURRENT VIA [facility] (hearing loss) Hyperlipidemia 02/14/2014 DX:Hyperlipidemia Hypertension 02/14/2014 DX:Hypertension Joint pain Lung nodule Microalbuminuria 09/22/2016 DX:Microalbuminuria Osteoporosis 02/14/2014 DX:Osteoporosis MEDICATIONS atorvastatin, 10 mg, oral, Nightly B complex-vitamin C-folic acid, 1 each, oral, Daily docusate sodium, 100 mg, oral, BID insulin glargine, 10 Units, subcutaneous, Nightly insulin lispro, 1-6 Units, subcutaneous, Before meals & nightly insulin lispro, 3 Units, subcutaneous, TID AC pantoprazole, 40 mg, oral, q AM AC polyetheylene glycol, 17 g, oral, Daily predniSONE, 60 mg, oral, Daily sodium chloride, 10 mL, intravenous, BID sodium chloride, 10 mL, intravenous, BID sulfamethoxazole-trimethoprim, 160 mg, oral, Once per day on Thursday thiamine, 100 mg, oral, Daily PRN medications: acetaminophen, benzonatate, dextrose 50%, dextrose 50%, dextrose, dextrose, glucagon injection, heparin OR heparin, hydrALAZINE, HYDROmorphone, naloxone, ondansetron, oxyCODONE, artificial tears, Insert peripheral IV AND Maintain IV access AND Saline lock IV AND sodium chloride AND sodium chloride, [COMPLETED] Insert Midline AND Maintain IV access AND Saline lock IV AND sodium chloride AND sodium chloride, sodium chloride, sodium chloride, sodium chloride heparin, 18 Units/kg/hr, Last Rate: 21 Units/kg/hr (07/27/24 2791) OBJECTIVE Vital signs in last 24 hours: Visit Vitals BP (!) 145/68 Pulse 65 Temp 36.4 ??C (97.5 ??F) (Temporal) Resp 17 Intake/Output last 24 hours: Intake/Output Summary (Last 24 hours) at 07/27/2024 1016 Last data filed at 07/27/2024 0830 Gross per 24 hour Intake 714.51 ml Output 120 ml Net 594.51 ml Weights: Admission Weight: Weight: 72.6 kg (160 lb) Wt Readings from Last 3 Encounters: 07/26/24 79.6 kg (175 lb 8 oz) 06/17/24 76.2 kg (168 lb) 06/13/24 76.5 kg (168 lb 9.6 oz) Physical Exam: General: No acute distress HEENT: Normocephalic, atraumatic, anicteric Cardiovascular: S1 S2 normal Respiratory: unlabored Gl: soft non-distended Extremities: No cyanosis Neurological: Alert Integumentary: no rash Psych: Calm, cooperative LABS Results from last 7 days Lab Units 07/27/24 0627 07/25/24 0535 07/24/24 0648 WBC AUTO K/mcL 12.4* 12.4* 14.2* 13.1* 13.1* HEMOGLOBIN g/dL 7.7* 7.7* 8.0* 7.7* 7.7* HEMATOCRIT % 25.5* 25.5* 25.7* 25.3* 25.3* MCV FL 83.3 83.3 82.1 81.4 81.4 PLATELETS K/mcL 143 143 158 174 174 Results from last 7 days Lab Units 07/27/24 0627 07/25/24 0535 07/24/24 0648 CREATININE mg/dL 3.88* 3.91* 2.84* BUN mg/dL 62* 77* 54* SODIUM mmol/L 130* 132* 132* POTASSIUM mmol/L 4.2 4.2 4.1 CHLORIDE mmol/L 93* 94* 94* CO2 mmol/L 30 30 29 Phosphorus Date Value Ref Range Status 07/17/2024 2.9 2.5 - 4.5 mg/dL Final 07/15/2024 4.2 2.5 - 4.5 mg/dL Final 07/13/2024 3.0 2.5 - 4.5 mg/dL Final PTH Date Value Ref Range Status 07/10/2024 10.5 (L) 18.5 - 88.0 pcg/mL Final 07/08/2024 6.5 (L) 18.5 - 88.0 pcg/mL Final Iron Date Value Ref Range Status 07/08/2024 20 (L) 40 - 150 mcg/dL Final Comment: Hemolysis present 05/31/2024 14 (L) 40 - 150 mcg/dL Final TIBC Date Value Ref Range Status 07/08/2024 186 (L) 250 - 450 mcg/dL Final 05/31/2024 278 250 - 450 mcg/dL Final Ferritin Date Value Ref Range Status 07/08/2024 708 (H) 8 - 252 ng/mL Final 05/31/2024 294 (H) 8 - 252 ng/mL Final No results found for: COLORUA , CLARITYUA , SPECGRAVUA , PHUA , PROTUA , GLUCOSEUA , KETONESUA , BILIRUBINUA , BLOODUA , UROBILINOGUA , NITRITEUA IMPRESSION and PLAN RENE Glomerulonephritis Anemia CKD 3 RENE remains HD dependent with no sign of recovery yet 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 Montez Renal diet Outpatient HD arranged at [facility] m-w-f 1st shift [phone]) Consider [facility] or [facility] if going to [facility] Miguel Quiles MD * Katina Machuca RN - 07/27/2024 4:29 AM EST Goals: Problem: Falls: Fall Risk (Adult IP ) Goal: (Goal) Patient will experience maximum safety and reduce risk for falls. Outcome: Progressing Goal: Patient will not fall or injure themselves during hospitalization. Outcome: Progressing Problem: Mobility Goal: Patient will ambulate Outcome: Progressing Problem: Safety Goal: Patient will adhere to precautions during ADL's and transfers Outcome: Progressing Goal: Patient will demonstrate safety requirements appropriate to situation/environment Outcome: Progressing Goal: Patient will utilize safety techniques Outcome: Progressing Goal: Patient uses call light consistently to request assistance with transfers Outcome: Progressing Goal: Free from fall injury Outcome: Progressing Problem: Transfers Goal: Patient will transfer to commode Outcome: Progressing Goal: Transfer from bed to chair. Outcome: Progressing Goal: Patient will roll Outcome: Progressing Problem: Pain Goal: Patient will manage pain with the appropriate technique/Intervention Outcome: Progressing Goal: Pain is manageable through therapies Outcome: Progressing Goal: Patient will increase activity level Outcome: Progressing Problem: Compromised Skin Integrity Goal: Patient will be free from infection Outcome: Progressing Goal: Patient will maintain/improve skin integrity through proper skin care techniques Outcome: Progressing Goal: Patient will demonstrate appropriate pressure relief techniques Outcome: Progressing Goal: Patient will be free from infection Outcome: Progressing Identify possible barriers to meeting goals/advancing plan of care: pending str hd pending procedure Stability of the patient: Moderately Unstable - Medium risk of patient condition declining or worsening End of Shift Summary: vss heparin maintained until 6am. Cont to have bloody urine in very small amts * Jonny Mathur MD - 07/26/2024 5:53 PM EST Images from the original note were not included. [place] PROGRESS NOTE Date: 07/26/2024 Author: Jonny Mathur MD Patient ID: Ana Contreras is a 79 y.o. female : 1945 MR#: [id number] SUBJECTIVE Follow up:metabolic encephalopathy, renal failure requiring HD, lung mass Events noted No acute issues Offer no new symptoms/complaints Able to work with PT earlier Patient's son Paul and daughter Dennise present Allergies Patient has no known allergies. Current Medications: atorvastatin, 10 mg, oral, Nightly B complex-vitamin C-folic acid, 1 each, oral, Daily docusate sodium, 100 mg, oral, BID insulin glargine, 10 Units, subcutaneous, Nightly insulin lispro, 1-6 Units, subcutaneous, Before meals & nightly insulin lispro, 3 Units, subcutaneous, TID AC pantoprazole, 40 mg, oral, q AM AC polyetheylene glycol, 17 g, oral, Daily predniSONE, 60 mg, oral, Daily sodium chloride, 10 mL, intravenous, BID sodium chloride, 10 mL, intravenous, BID sulfamethoxazole-trimethoprim, 160 mg, oral, Once per day on Thursday thiamine, 100 mg, oral, Daily heparin, 18 Units/kg/hr, Last Rate: 21 Units/kg/hr (07/26/24 1335) PRN medications: acetaminophen, benzonatate, dextrose 50%, dextrose 50%, dextrose, dextrose, glucagon injection, heparin OR heparin, hydrALAZINE, HYDROmorphone, naloxone, ondansetron, oxyCODONE, artificial tears, Insert peripheral IV AND Maintain IV access AND Saline lock IV AND sodium chloride AND sodium chloride, [COMPLETED] Insert Midline AND Maintain IV access AND Saline lock IV AND sodium chloride AND sodium chloride, sodium chloride, sodium chloride, sodium chloride OBJECTIVE Vitals: 07/26/24 0600 07/26/24 0832 07/26/24 0952 07/26/24 1521 BP: (!) 157/71 135/60 (!) 152/66 BP Location: Left arm Left arm Patient Position: Pulse: 93 93 78 Resp: 16 16 Temp: 36.2 ??C (97.2 ??F) 36.6 ??C (97.8 ??F) TempSrc: Temporal Temporal SpO2: 97% 97% Weight: 79.6 kg (175 lb 8 oz) Height: Vital Signs: as documented above General: No acute distress. Up in bed. Calm/cooperative. HEENT/Neck: Moist mucosa, no icterus, supple Thorax: Hemodialysis catheter left upper anterior chest wall. No accessory muscles use. Clear anteriorly Cardiac: Regular. No murmur appreciated Abdomen: Not distended,+ bowel sounds, soft, nontender Extremities: No edema, no cyanosis, no calf tenderness Mental Status: Awake, alert Neurological: No localizing weakness. Gait not tested : Deferred LABS HEMATOLOGY Lab Results Component Value Date WBC 14.2 (H) 07/25/2024 HGB 8.0 (L) 07/25/2024 HCT 25.7 (L) 07/25/2024 MCV 82.1 07/25/2024 PLT 158 07/25/2024 CHEMISTRY Lab Results Component Value Date GLUCOSE 192 (H) 07/26/2024 NA 132 (L) 07/25/2024 K 4.2 07/25/2024 CO2 30 07/25/2024 CL 94 (L) 07/25/2024 BUN 77 (H) 07/25/2024 CREATININE 3.91 (H) 07/25/2024 EGFR 11 (L) 07/25/2024 CALCIUM 8.2 (L) 07/25/2024 MG 2.2 07/17/2024 PHOS 2.9 07/17/2024 ANIONGAP 8 07/25/2024 Imaging: IR Bx Ndl Renal Perc Left Narrative: INDICATION: Acute renal failure PROCEDURE: Consent obtained for CT guided random core renal biopsy under conscious sedation. prior relevant studies: PET/CT from May 03, 2024 MEDICATIONS: Local anesthesia: 8 cc of 1% buffered lidocaine administered subcutaneously. Sedation: Moderate intravenous sedation was initiated and maintained for 30 minutes while the patient was independently monitored by the radiology nurse under the supervision of the interventional radiologist. A total of 1.5 mg of Versed and 50 mcg of fentanyl administered during the procedure. Scanner: [employer] [address] Dose reduction technique: AEC (automated exposure control) Dose: total exam DLP 373 mGY per cm TECHNIQUE: Patient placed prone on the CT table and multiple axial images obtained through the kidneys. Appropriate area the skin overlying the left kidney was marked, draped and prepped using maximum sterile barrier. Moderate sedation initiated with administration of local anesthetic. Under CT fluo roscopic guidance a 17-gauge coaxial needle was advanced into the periphery of the localized kidney. 3 18-gauge core biopsy samples obtained. Gelfoam slurry was injected through the coaxial needle along the perinephric space. FINDINGS: Initial limited CT images of the abdomen demonstrate normal-sized kidneys bilaterally. Left lower pole localized for biopsy. Images obtained during localization and needle positioning demonstrate coaxial needle positioned within the periphery of the localized kidney. Images obtained after biopsy demonstrate no significant postbiopsy hemorrhage. Gelfoam slurry notedalong the liver capsule at site of needle insertion. SPECIMENS: Core biopsy samples placed in sterile saline and sent to the pathology department. Impression: CT-guided random core renal biopsy using coaxial technique. -------- FINAL REPORT -------- Dictated By: Fela Palomo Dictated Date: 07/22/2024 16:58 ET Assigned Physician: Fela Palomo Reviewed and Electronically Signed By: Fela Palomo Signed Date: 07/22/2024 17:00 ET Workstation ID: [id number] Transcribed By: Self Edit Transcribed Date: 07/22/2024 16:58 ET ASSESSMENT & PLAN Acute on chronic kidney injury Glomerulonephritis CKD3a Requiring acute HD -Continuing hemodialysis(MWF), will need to coordinate next HD with upcoming thoracic procedure tomorrow(see below) -Continue prednisone, prophylactic TMP-SMX -Follow-up pathology Metabolic encephalopathy, acute Resolved. Possibly due to worsening renal failure. Chronic anemia Iron deficiency. Treated with IV iron. Transfused PRBC. -follow H&H Hematuria Reportedly has had bouts of hematuria possibly due to indwelling urinary catheter. -Monitor Left lower extremity DVT. Remains on Heparin drip and holding transition to oral anticoagulation(NOAC) as she is scheduled for another biopsy (see below). Right upper lobe pulmonary nodules/right lung mass. Noted by previous provider, patient had CT-guided biopsy on 05/23/2024 which was nondiagnostic. Shehad been referred to thoracic team and plan is for endoscopy with EBUS. Lung mass biopsy which is scheduled for tomorrow with Dr. Montez. -Notified by Dr. Montez who confirmed planned for EBUS w/bx -Will make NPO except meds p mn. -d/c heparin IV gtt prior to procedure Traumatic rhabdomyolysis Resolved DISPOSITION * Jloene Cardona RN - 07/26/2024 3:51 PM EST Goals: Identify possible barriers to meeting goals/advancing plan of care: Heparin gtt/waekness/Bronch/pending renal biopsy Stability of the patient: Moderately Unstable - Medium risk of patient condition declining or worsening End of Shift Summary: Pt A&Ox3, appears tired and fatigue. VSS, sat 96% on RA. Heparin gtt infusing per order, next anti-xa will be tomorrow at 6 am. Pt used the commode this morning, 10-15 ml ofdark red blood noted in the reginoetMD notified. Pt also had a soft brown BM. CBC/BMP scheduled fortomorrow morning. * Tarsha Corea RN - 07/26/2024 3:07 PM EST DANITZA: 07/28 Barriers: Bronch w lung mass bx 07/27, Renal Bx 07/22 w/ path pending, new HD, trend labs, H/H, heparin drip-LLE DVT, repeat PT eval Plan: [facility] considering pending bed and HD slot. [facility] accepting w family to provide HD transportation support if Pt can get in/out of private vehicle. * Nithya Constantino PT - 07/26/2024 8:45 AM EST Patient: Ana Contreras Age: 79 y.o. Sex: female Acute encephalopathy [facility] RE-Evaluation Ambulation: Walking Assistance: Minimum assistance, Modified independent, Assist x2 (initally pt ambulated frombed to commode 3ft with rwalker, min assist. but after standing up from armless chair, was very fatigued, needing assist x 2 and rwalker) Walking Deficit: Verbal cueing, Supervision/safety awareness, Steadying, Increased time to complete, Assist for trunk control, Assist for weight shifting, Limited endurance, Impaired balance, LE weakness Device: Rolling walker Distance Ambulated (ft): 3 PLOF: Level of [place]: Independent with mobility and functional transfers Lives With: Alone Type of Home: House Home Adaptive Equipment: Cane, Rollator Home Layout: One level Home Access: Stairs to enter without rails DME Needs: r walker PT Discharge Recommendation: Inpatient rehab facility placement, correction facility placement Reason for current recommendation based on assessment: Based on present level of mobility, pt is below baseline for functioning, is at a high risk for falls and is unable to safely ambulate a household distance at this time. Pt was previously independent and would benefit from the most intensive level of post- acute rehab for the best functional outcome. Extracted from EMR: SUBJECTIVE RN approved pt. for PT visit at this time. Pt. was educated on the PT role, understood the benefitsof working with PT, and was agreeable. Past Medical History: Diagnosis Date Anemia Arthritis Blindness Decreased vision 11/29/2014 DX:Decreased vision Diabetes mellitus, type 2 (CMS/HCC) 02/14/2014 DX:Diabetes mellitus, type 2 ([facility]) DVT, lower extremity ([facility]) LEFT LEG Family history of early CAD 03/01/2014 DX:Family history of early CAD Family history of factor V Leiden mutation 12/12/2015 DX:Family history of factor V Leiden mutation History of renal dialysis CURRENT [facility]IA [facility] (hearing loss) Hyperlipidemia 02/14/2014 DX:Hyperlipidemia Hypertension 02/14/2014 DX:Hypertension Joint pain Lung nodule Microalbuminuria 09/22/2016 DX:Microalbuminuria Osteoporosis 02/14/2014 DX:Osteoporosis Past Surgical History: Procedure Laterality Date CATARACT EXTRACTION Bilateral 2019 PROCEDURE: HISTORICAL CATARACT REMOVAL OTHER SURGICAL HISTORY 05/2012 PROCEDURE: ---- OTHER ----; COMMENT: lumbar microdiscectomy OBJECTIVE 07/26/24 0845 PT Last Visit PT Received On 07/26/24 General Family/Caregiver Present No PT Time Calculation PT Start Time 0840 PT Stop Time 0930 PT Time Calculation (min) 50 min Precautions Medical Precautions Fall Risk Safety Interventions Call chavarria within reach RUE Weight Bearing Status Full LUE Weight Bearing Status Full RLE Weight Bearing Status Full LLE Weight Bearing Status Full Oxygen Therapy Oxygen Therapy None (Room air) O2 Delivery Method Nasal cannula Pain Assessment Pain Assessment 0-10 Pain Type Acute pain Pain Location Leg Pain Orientation Left Pain Frequency Constant/continuous Activities/Procedures Causing Pain Activity (Up to chair, ambulation) Cognition Following Commands Follows one step commands with increased time Home Living Type of Home House Lives With Alone Home Adaptive Equipment Cane;Rollator Home Layout One level Home Access Stairs to enter without rails Entrance Stairs-Rails (pole) Entrance Stairs-Number of Steps 3 Bathroom Shower/Tub Tub/shower unit Prior Function Level of [place] Independent with mobility and functional transfers Ambulation Status Household ambulator Indoor Mobility Assistance Independent Stairs Assistance Independent Prior Device Use Cane Do you drive? No Which is your dominant hand? Right Vision - Complex Assessment Vision Comments legally blind Activity Tolerance Endurance Tolerates 20 - 30 min activity with multiple rests Static Sitting Balance Static Sitting-Level of Assistance Standby assistance Static Sitting-Comment/Number of Minutes good Dynamic Sitting Balance Dynamic Sitting-Level of Assistance Contact guard Dynamic Sitting-Comments fair- Static Standing Balance Static Standing-Level of Assistance Minimum assistance Static Standing-Balance Support Right upper extremity supported;Left upper extremity supported Static Standing-Comment/Number of Minutes fair- Dynamic Standing Balance Dynamic Standing-Level of Assistance Moderate assistance Dynamic Standing-Balance Support Right upper extremity supported;Left upper extremity supported Dynamic Standing-Comments poor+ Bed Mobility Sitting to Lying Assistance Maximum assistance Sitting to Lying Deficit Steadying;Verbal cueing;Supervision/safety awareness;Assist lifting left leg onto bed;Assist lifting right leg onto bed;Assist to lower upper body onto bed;Assist to positionupper body Lying to Sitting Assistance Setup;Minimum assistance Lying to Sitting Deficit Steadying;Verbal cueing;Supervision/safety awareness;Increased time to complete;Assist to scoot to edge of bed;Assist lifting left leg off of bed;Assist lifting right leg offof bed Transfers Sit to Stand Assistance Assist x2 (from over EOB : min assist; from commode: mod;; from chair without arms: max assist x 2) Sit to Stand Deficit Steadying;Verbal cueing;Supervision/safety awareness;Increased time to complete;Assist for foot placement;Assist for lift off;Assist for trunk control Chair/Bed to Chair/Bed Transfer Assistance Assist x2 (when fatigued; initially mod assist;) Chair/Bed to Chair/Bed Transfer Deficit Steadying;Verbal cueing;Supervision/safety awareness;Increased time to complete;Assist for foot placement;Assist for trunk control;Assist for weight shifting Car Transfer Assistance Assist x2 (simulated) Car Transfer Deficit Verbal cueing;Steadying;Supervision/safety awareness;Increased time to complete;Assist for trunk control;Assist for weight shifting Transfer Comments simulated car transfer: pt sat down, moving legs over: mod assist; getting up: assist x 2 Ambulation Walking Assistance Minimum assistance;Modified independent;Assist x2 (initally pt ambulated from bed to commode 3ft with rwalker, min assist. but after standing up fromarmless chair, was very fatigued, needing assist x 2 and rwalker) Walking Deficit Verbal cueing;Supervision/safety awareness;Steadying;Increased time to complete;Assist for trunk control;Assist for weight shifting;Limited endurance;Impaired balance;LE weakness Device Rolling walker Distance Ambulated (ft) 3 Stairs 1 step (curb): Assistance Not attempted, medical/safety concerns RUE Assessment RUE Assessment Impaired LUE Assessment LUE Assessment Impaired RLE Assessment RLE Assessment Impaired RLE Assessment Comments 3-/5 LLE Assessment LLE Assessment Impaired LLE Assessment Comments 3-/5 PT Assessment PT Assessment Results Decreased strength;Decreased range of motion;Decreased endurance;Impaired balance;Impaired gait;Decreased mobility;Impaired vision;Pain (assessed simulated car transfer with extensive cues; getting into car required mod assist and rwalker; getting up/out: required assist x 2; early on in re- eval, pt transferred from EOB and walked 3 ft with min -mod assist,) Comments by the end of session, pt was very fatigued and needed max assist of 2 for transfers and limited mobility. (It was noted that pt had loose stools in coomode with thick blood ; nsg notified) Plan Treatment/Interventions ADL retraining;Functional transfer training;UE strengthening/ROM;LE strengthening/ROM;Endurance training;Patient/family training;Bed mobility;Gait training;Continued evaluation;Balance training PT Plan Skilled PT PT Frequency 2-5 days per week PT Discharge Recommendations Inpatient rehab facility placement;correction facility placement Equipment Recommended r walker PT Evaluation Time Entry PT Re-Evaluation Time Entry 50 EDUCATION Education Documentation ADL Training, taught by Nithya Constantino PT at 07/26/2024 1:21 PM. Learner: Patient Readiness: Acceptance Method: Explanation, Demonstration Response: Needs Reinforcement, Verbalizes Understanding Comment: instructed in sequence of car transfer Home Exercise Program, taught by Nithya Constantino PT at 07/26/2024 1:21 PM. Learner: Patient Readiness: Acceptance Method: Explanation, Demonstration Response: Needs Reinforcement, Verbalizes Understanding Comment: instructed in sequence of car transfer Mobility Training, taught by Nithya Constantino PT at 07/26/2024 1:21 PM. Learner: Patient Readiness: Acceptance Method: Explanation, Demonstration Response: Needs Reinforcement, Verbalizes Understanding Comment: instructed in sequence of car transfer Education Comments No comments found. Nithya Constantino PT * Miguel Quiles MD - 07/26/2024 8:13 AM EST Images from the original note were not included. Progress Note CHIEF COMPLAINT F/u SUBJECTIVE Patient seen and examined No complaints MEDICAL HISTORY Past Medical History: Diagnosis Date Anemia Arthritis Blindness Decreased vision 11/29/2014 DX:Decreased vision Diabetes mellitus, type 2 (CMS/HCC) 02/14/2014 DX:Diabetes mellitus, type 2 (HCC) DVT, lower extremity (CMS/HCC) LEFT LEG Family history of early CAD 03/01/2014 DX:Family history of early CAD Family history of factor V Leiden mutation 12/12/2015 DX:Family history of factor V Leiden mutation History of renal dialysis CURRENT [facility]IA [facility] (hearing loss) Hyperlipidemia 02/14/2014 DX:Hyperlipidemia Hypertension 02/14/2014 DX:Hypertension Joint pain Lung nodule Microalbuminuria 09/22/2016 DX:Microalbuminuria Osteoporosis 02/14/2014 DX:Osteoporosis MEDICATIONS atorvastatin, 10 mg, oral, Nightly B complex-vitamin C-folic acid, 1 each, oral, Daily docusate sodium, 100 mg, oral, BID insulin glargine, 10 Units, subcutaneous, Nightly insulin lispro, 1-6 Units, subcutaneous, Before meals & nightly insulin lispro, 3 Units, subcutaneous, TID AC pantoprazole, 40 mg, oral, q AM AC polyetheylene glycol, 17 g, oral, Daily predniSONE, 60 mg, oral, Daily sodium chloride, 10 mL, intravenous, BID sodium chloride, 10 mL, intravenous, BID sulfamethoxazole-trimethoprim, 160 mg, oral, Once per day on Thursday thiamine, 100 mg, oral, Daily PRN medications: acetaminophen, benzonatate, dextrose 50%, dextrose 50%, dextrose, dextrose, glucagon injection, heparin OR heparin, hydrALAZINE, HYDROmorphone, naloxone, ondansetron, oxyCODONE, artificial tears, Insert peripheral IV AND Maintain IV access AND Saline lock IV AND sodium chloride AND sodium chloride, [COMPLETED] Insert Midline AND Maintain IV access AND Saline lock IV AND sodium chloride AND sodium chloride, sodium chloride, sodium chloride, sodium chloride heparin, 18 Units/kg/hr, Last Rate: 21 Units/kg/hr (07/25/242137) OBJECTIVE Vital signs in last 24 hours: Visit Vitals BP (!) 141/59 (BP Location: Left arm, Patient Position: Lying) Pulse 82 Temp 36.4 ??C (97.5 ??F) (Oral) Resp 16 Intake/Output last 24 hours: Intake/Output Summary (Last 24 hours) at 07/26/2024 0813 Last data filed at 07/26/2024 0600 Gross per 24 hour Intake 705.19 ml Output 2100 ml Net -1394.81 ml Weights: Admission Weight: Weight: 72.6 kg (160 lb) Wt Readings from Last 3 Encounters: 07/26/24 79.6 kg (175 lb 8 oz) 06/17/24 76.2 kg (168 lb) 06/13/24 76.5 kg (168 lb 9.6 oz) Physical Exam: General: No acute distress HEENT: Normocephalic, atraumatic, anicteric Cardiovascular: S1 S2 normal Respiratory: unlabored Gl: soft non-distended Extremities: No cyanosis Neurological: Alert Integumentary: no rash Psych: Calm, cooperative LABS Results from last 7 days Lab Units 07/25/24 0535 07/24/24 0648 07/23/24 0544 WBC AUTO K/mcL 14.2* 13.1* 13.1* 11.6* HEMOGLOBIN g/dL 8.0* 7.7* 7.7* 6.9* HEMATOCRIT % 25.7* 25.3* 25.3* 23.0* MCV FL 82.1 81.4 81.4 81.6 PLATELETS K/mcL 158 174 174 206 Results from last 7 days Lab Units 07/25/24 0535 07/24/24 0648 07/23/24 0544 CREATININE mg/dL 3.91* 2.84* 4.16* BUN mg/dL 77* 54* 76* SODIUM mmol/L 132* 132* 130* POTASSIUM mmol/L 4.2 4.1 5.5 CHLORIDE mmol/L 94* 94* 92* CO2 mmol/L 30 29 29 Phosphorus Date Value Ref Range Status 07/17/2024 2.9 2.5 - 4.5 mg/dL Final 07/15/2024 4.2 2.5 - 4.5 mg/dL Final 07/13/2024 3.0 2.5 - 4.5 mg/dL Final PTH Date Value Ref Range Status 07/10/2024 10.5 (L) 18.5 - 88.0 pcg/mL Final 07/08/2024 6.5 (L) 18.5 - 88.0 pcg/mL Final Iron Date Value Ref Range Status 07/08/2024 20 (L) 40 - 150 mcg/dL Final Comment: Hemolysis present 05/31/2024 14 (L) 40 - 150 mcg/dL Final TIBC Date Value Ref Range Status 07/08/2024 186 (L) 250 - 450 mcg/dL Final 05/31/2024 278 250 - 450 mcg/dL Final Ferritin Date Value Ref Range Status 07/08/2024 708 (H) 8 - 252 ng/mL Final 05/31/2024 294 (H) 8 - 252 ng/mL Final No results found for: COLORUA , CLARITYUA , SPECGRAVUA , PHUA , PROTUA , GLUCOSEUA , KETONESUA , BILIRUBINUA , BLOODUA , UROBILINOGUA , NITRITEUA IMPRESSION and PLAN RENE Glomerulonephritis Anemia CKD 3 S/p HD yesterday RENE remains HD dependent with no sign of recovery yet 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 Montez Renal diet Outpatient HD arranged at [facility] m-w-f 1st shift [phone]) Consider Kana Fern[facility]dez or Maribeth if going to [facility] Miguel Quiles MD * Katina Machuca RN - 07/26/2024 1:44 AM EST Goals: Problem: Falls: Fall Risk (Adult IP BH) Goal: (Goal) Patient will experience maximum safety and reduce risk for falls. Outcome: Progressing Problem: Pain Goal: Patient will manage pain with the appropriate technique/Intervention Outcome: Progressing Problem: Compromised Skin Integrity Goal: Patient will maintain/improve skin integrity through proper skin care techniques Outcome: Progressing Identify possible barriers to meeting goals/advancing plan of care: await path report from renal bx. Also pending bronch on thursday Stability of the patient: Moderately Unstable - Medium risk of patient condition declining or worsening End of Shift Summary: vss. Continues on heparin gtt. Cont to c/o pain in toes * Jolene Cardona RN - 07/25/2024 5:48 PM EST Goals: Identify possible barriers to meeting goals/advancing plan of care: Heparin gtt Stability of the patient: Moderately Stable - Low risk of patient condition declining or worsening End of Shift Summary: Heparin gtt infusing per order, no signs of bleeding noted. Pt had dialysis in AM. VSS. Eye drops applied. * Jonny Mathur MD - 07/25/2024 3:55 PM EST Images from the original note were not included. [place] PROGRESS NOTE Date: 07/25/2024 Author: Jonny Mathur MD Patient ID: Ana Contreras is a 79 y.o. female : 1945 MR#: [id number] SUBJECTIVE Follow up:metabolic encephalopathy, renal failure requiring HD, lung mass EMR reviewed. Events noted D/w nephrology prior to my encounter HD earlier today +generalized weakness No SOB Allergies Patient has no known allergies. Current Medications: atorvastatin, 10 mg, oral, Nightly B complex-vitamin C-folic acid, 1 each, oral, Daily docusate sodium, 100 mg, oral, BID insulin glargine, 10 Units, subcutaneous, Nightly insulin lispro, 1-6 Units, subcutaneous, Before meals & nightly insulin lispro, 3 Units, subcutaneous, TID AC pantoprazole, 40 mg, oral, q AM AC polyetheylene glycol, 17 g, oral, Daily predniSONE, 60 mg, oral, Daily sodium chloride, 10 mL, intravenous, BID sodium chloride, 10 mL, intravenous, BID sulfamethoxazole-trimethoprim, 160 mg, oral, Once per day on Thursday thiamine, 100 mg, oral, Daily heparin, 18 Units/kg/hr, Last Rate: 21 Units/kg/hr (07/25/24 0800) PRN medications: acetaminophen, benzonatate, dextrose 50%, dextrose 50%, dextrose, dextrose, glucagon injection, heparin OR heparin, hydrALAZINE, HYDROmorphone, naloxone, ondansetron, oxyCODONE, artificial tears, Insert peripheral IV AND Maintain IV access AND Saline lock IV AND sodium chloride AND sodium chloride, [COMPLETED] Insert Midline AND Maintain IV access AND Saline lock IV AND sodium chloride AND sodium chloride, sodium chloride, sodium chloride, sodium chloride OBJECTIVE Vitals: 07/25/24 1345 07/25/24 1400 07/25/24 1451 07/25/24 1542 BP: 120/78 (!) 127/92 132/60 (!) 151/61 BP Location: Right arm Right arm Left arm Patient Position: Lying Lying Pulse: 98 68 88 89 Resp: 18 16 Temp: 36.6 ??C (97.9 ??F) 36.2 ??C (97.2 ??F) 36.1 ??C (97 ??F) TempSrc: Temporal Temporal Temporal SpO2: 98% 100% 97% Weight: 83.5 kg (184 lb) Height: Vital Signs: as documented above General: No acute distress. Up in bed. Calm/cooperative. HEENT/Neck: Moist mucosa, no icterus, supple Thorax: Hemodialysis catheter left upper anterior chest wall. No accessory muscles use. Clear anteriorly Cardiac: Regular. No murmur appreciated Abdomen: Not distended,+ bowel sounds, soft, nontender Extremities: No edema, no cyanosis, no calf tenderness Mental Status: Awake, alert Neurological: No localizing weakness. Gait not tested : Deferred LABS HEMATOLOGY Lab Results Component Value Date WBC 14.2 (H) 07/25/2024 HGB 8.0 (L) 07/25/2024 HCT 25.7 (L) 07/25/2024 MCV 82.1 07/25/2024 PLT 158 07/25/2024 CHEMISTRY Lab Results Component Value Date GLUCOSE 143 (H) 07/25/2024 NA 132 (L) 07/25/2024 K 4.2 07/25/2024 CO2 30 07/25/2024 CL 94 (L) 07/25/2024 BUN 77 (H) 07/25/2024 CREATININE 3.91 (H) 07/25/2024 EGFR 11 (L) 07/25/2024 CALCIUM 8.2 (L) 07/25/2024 MG 2.2 07/17/2024 PHOS 2.9 07/17/2024 ANIONGAP 8 07/25/2024 Imaging: IR Bx Ndl Renal Perc Left Narrative: INDICATION: Acute renal failure PROCEDURE: Consent obtained for CT guided random core renal biopsy under conscious sedation. prior relevant studies: PET/CT from May 03, 2024 MEDICATIONS: Local anesthesia: 8 cc of 1% buffered lidocaine administered subcutaneously. Sedation: Moderate intravenous sedation was initiated and maintained for 30 minutes while the patient was independently monitored by the radiology nurse under the supervision of the interventional radiologist. A total of 1.5 mg of Versed and 50 mcg of fentanyl administered during the procedure. Scanner: [employer] [address] Dose reduction technique: AEC (automated exposure control) Dose: total exam DLP 373 mGY per cm TECHNIQUE: Patient placed prone on the CT table and multiple axial images obtained through the kidneys. Appropriate area the skin overlying the left kidney was marked, draped and prepped using maximum sterile barrier. Moderate sedation initiated with administration of local anesthetic. Under CT fluo roscopic guidance a 17-gauge coaxial needle was advanced into the periphery of the localized kidney. 3 18-gauge core biopsy samples obtained. Gelfoam slurry was injected through the coaxial needle along the perinephric space. FINDINGS: Initial limited CT images of the abdomen demonstrate normal-sized kidneys bilaterally. Left lower pole localized for biopsy. Images obtained during localization and needle positioning demonstrate coaxial needle positioned within the periphery of the localized kidney. Images obtained after biopsy demonstrate no significant postbiopsy hemorrhage. Gelfoam slurry notedalong the liver capsule at site of needle insertion. SPECIMENS: Core biopsy samples placed in sterile saline and sent to the pathology department. Impression: CT-guided random core renal biopsy using coaxial technique. -------- FINAL REPORT -------- Dictated By: Fela Palomo Dictated Date: 07/22/2024 16:58 ET Assigned Physician: Fela Palomo Reviewed and Electronically Signed By: Fela Palomo Signed Date: 07/22/2024 17:00 ET Workstation ID: [id number] Transcribed By: Self Edit Transcribed Date: 07/22/2024 16:58 ET ASSESSMENT & PLAN Acute on chronic kidney injury Glomerulonephritis CKD3a Requiring acute HD -Continuing hemodialysis -Continue prednisone, prophylactic [id number] -Follow-up pathology Metabolic encephalopathy, acute Resolved. Possibly due to worsening renal failure. Chronic anemia Iron deficiency. Treated with IV iron. Transfused PRBC. -follow H&H Hematuria Reportedly has had bouts of hematuria possibly due to indwelling urinary catheter. -Monitor Left lower extremity DVT. Remains on Heparin drip and holding transition to oral anticoagulation(NOAC) as she is scheduled for another biopsy (see below). Right upper lobe pulmonary nodules/right lung mass. Noted by previous provider, patient had CT-guided biopsy on 05/23/2024 which was nondiagnostic. Shehad been referred to thoracic team and plan is for endoscopy with EBUS. -Lung mass biopsy which is scheduled on Thursday07/27/[address] Montez. -Thoracic team notified via secure text Traumatic rhabdomyolysis Resolved DISPOSITION Requiring acute dialysis. Renal biopsy pending On heparin IV gtt pending lung nodule bx on 07/27(Thursday) * Siomara Eagle RN - 07/25/2024 2:14 PM EST 07/25/24 1400 Vital Signs Temp 36.6 ??C (97.9 ??F) Temp Source Temporal Heart Rate 68 BP (!) 127/92 MAP (Calculated) 104 mm Hg BP Location Right arm Patient Position Lying SpO2 98 % Post-Hemodialysis Assessment Rinseback Volume (mL) 150 mL Total Liters Processed (L/min) 96.5 L/min Dialyzer Clearance Lightly streaked Duration of Treatment (minutes) 240 minutes Hemodialysis Output (mL) 2000 mL Patient Response to Treatment/Comments + Weight 83.5 kg (184 lb) Post HD * Stacie Cuevas - 07/25/2024 12:43 PM EST IMM to give patient, when couple times patient was out of the room for medical procedure, Left copyat table pt room. * Nithya Constantino PT - 07/25/2024 11:47 AM EST Physical Therapy Therapy session was attempted for Ana Contreras by Nithya Constantino PT on 07/25/2024. The patient was unable to be seen for the following reason(s): Out of room at a medical procedure Plan for return visit: As soon as possible * Miguel Quiles MD - 07/25/2024 10:55 AM EST Images from the original note were not included. Progress Note CHIEF COMPLAINT F/u SUBJECTIVE Patient seen and examined on HD No complaints MEDICAL HISTORY Past Medical History: Diagnosis Date Anemia Arthritis Blindness Decreased vision 11/29/2014 DX:Decreased vision Diabetes mellitus, type 2 (CMS/HCC) 02/14/2014 DX:Diabetes mellitus, type 2 (HCC) DVT, lower extremity (CMS/HCC) LEFT LEG Family history of early CAD 03/01/2014 DX:Family history of early CAD Family history of factor V Leiden mutation 12/12/2015 DX:Family history of factor V Leiden mutation History of renal dialysis CURRENT VIA [facility] (hearing loss) Hyperlipidemia 02/14/2014 DX:Hyperlipidemia Hypertension 02/14/2014 DX:Hypertension Joint pain Lung nodule Microalbuminuria 09/22/2016 DX:Microalbuminuria Osteoporosis 02/14/2014 DX:Osteoporosis MEDICATIONS atorvastatin, 10 mg, oral, Nightly B complex-vitamin C-folic acid, 1 each, oral, Daily docusate sodium, 100 mg, oral, BID insulin glargine, 10 Units, subcutaneous, Nightly insulin lispro, 1-6 Units, subcutaneous, Before meals & nightly insulin lispro, 3 Units, subcutaneous, TID AC pantoprazole, 40 mg, oral, q AM AC polyetheylene glycol, 17 g, oral, Daily predniSONE, 60 mg, oral, Daily sodium chloride, 10 mL, intravenous, BID sodium chloride, 10 mL, intravenous, BID sulfamethoxazole-trimethoprim, 160 mg, oral, Once per day on Thursday thiamine, 100 mg, oral, Daily PRN medications: acetaminophen, benzonatate, dextrose 50%, dextrose 50%, dextrose, dextrose, glucagon injection, heparin OR heparin, hydrALAZINE, HYDROmorphone, naloxone, ondansetron, oxyCODONE, artificial tears, Insert peripheral IV AND Maintain IV access AND Saline lock IV AND sodium chloride AND sodium chloride, [COMPLETED] Insert Midline AND Maintain IV access AND Saline lock IV AND sodium chloride AND sodium chloride, sodium chloride, sodium chloride, sodium chloride heparin, 18 Units/kg/hr, Last Rate: 21 Units/kg/hr (07/25/24 0800) OBJECTIVE Vital signs in last 24 hours: Visit Vitals BP (!) 160/61 Pulse 61 Temp 36.7 ??C (98.1 ??F) (Temporal) Resp 16 Intake/Output last 24 hours: Intake/Output Summary (Last 24 hours) at 07/25/2024 1055 Last data filed at 07/25/2024 0700 Gross per 24 hour Intake 557.25 ml Output 200 ml Net 357.25 ml Weights: Admission Weight: Weight: 72.6 kg (160 lb) Wt Readings from Last 3 Encounters: 07/25/24 77.3 kg (170 lb 8 oz) 06/17/24 76.2 kg (168 lb) 06/13/24 76.5 kg (168 lb 9.6 oz) Physical Exam: General: No acute distress HEENT: Normocephalic, atraumatic, anicteric Cardiovascular: S1 S2 normal Respiratory: unlabored Gl: soft non-distended Extremities: No cyanosis Neurological: Alert Integumentary: no rash Psych: Calm, cooperative LABS Results from last 7 days Lab Units 07/25/24 0535 07/24/24 0648 07/23/24 0544 WBC AUTO K/mcL 14.2* 13.1* 13.1* 11.6* HEMOGLOBIN g/dL 8.0* 7.7* 7.7* 6.9* HEMATOCRIT % 25.7* 25.3* 25.3* 23.0* MCV FL 82.1 81.4 81.4 81.6 PLATELETS K/mcL 158 174 174 206 Results from last 7 days Lab Units 07/25/24 0535 07/24/24 0648 07/23/24 0544 CREATININE mg/dL 3.91* 2.84* 4.16* BUN mg/dL 77* 54* 76* SODIUM mmol/L 132* 132* 130* POTASSIUM mmol/L 4.2 4.1 5.5 CHLORIDE mmol/L 94* 94* 92* CO2 mmol/L 30 29 29 Phosphorus Date Value Ref Range Status 07/17/2024 2.9 2.5 - 4.5 mg/dL Final 07/15/2024 4.2 2.5 - 4.5 mg/dL Final 07/13/2024 3.0 2.5 - 4.5 mg/dL Final PTH Date Value Ref Range Status 07/10/2024 10.5 (L) 18.5 - 88.0 pcg/mL Final 07/08/2024 6.5 (L) 18.5 - 88.0 pcg/mL Final Iron Date Value Ref Range Status 07/08/2024 20 (L) 40 - 150 mcg/dL Final Comment: Hemolysis present 05/31/2024 14 (L) 40 - 150 mcg/dL Final TIBC Date Value Ref Range Status 07/08/2024 186 (L) 250 - 450 mcg/dL Final 05/31/2024 278 250 - 450 mcg/dL Final Ferritin Date Value Ref Range Status 07/08/2024 708 (H) 8 - 252 ng/mL Final 05/31/2024 294 (H) 8 - 252 ng/mL Final No results found for: COLORUA , CLARITYUA , SPECGRAVUA , PHUA , PROTUA , GLUCOSEUA , KETONESUA , BILIRUBINUA , BLOODUA , UROBILINOGUA , NITRITEUA IMPRESSION and PLAN RENE Glomerulonephritis Anemia CKD 3 RENE remains HD dependent with no sign of recovery yet 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 Montez Renal diet Outpatient HD arranged at [facility] -- 1st shift [phone]) Consider Kana Fernández or Maribeth if going to [facility] Miguel Quiles MD * Tarsha Corea RN - 07/25/2024 8:45 AM EST DANITZA: 07/28 Barriers: Renal Bx 07/22 w/ path pending, new HD, trend labs, H/H, heparin drip- LLE DVT, repeat Pt eval, lung mass biopsy 07/27 Plan: 1st choice - [facility] Fern[facility]dez or Maribeth d/t onsite HD. [facility] accepting w family to provide HD transportation support. * Katina Machuca RN - 07/25/2024 2:21 AM EST Goals: Problem: Falls: Fall Risk (Adult IP ) Goal: (Goal) Patient will experience maximum safety and reduce risk for falls. Outcome: Progressing Goal: Patient will not fall or injure themselves during hospitalization. Outcome: Progressing Problem: Compromised Skin Integrity Goal: Patient will be free from infection Outcome: Progressing Goal: Patient will maintain/improve skin integrity through proper skin care techniques Outcome: Progressing Goal: Patient will demonstrate appropriate pressure relief techniques Outcome: Progressing Goal: Patient demonstrates pressure reduction techniques Outcome: Progressing Identify possible barriers to meeting goals/advancing plan of care: pending bronch on Thursday. Cont on heparin gtt Stability of the patient: Moderately Stable - Low risk of patient condition declining or worsening End of Shift Summary: vss afebrile. Bladder scans performed remain negative. No signs of bleeding currently Jeni Al RN - 07/24/2024 4:13 PM EST 07/24/24 1613 Back up Transition Plan Back up Transition plan [facility] Barriers to discharge: Renal Bx 07/22 path pending, new HD, trend labs, H/H, heparin drip-LLE DVT, repeat Pt eval, lung mass biopsy 07/27 Plan: [facility] accepting w family to provide HD transportation support. Jeni Stuart MD - 07/24/2024 1:11 PM EST Images from the original note were not included. SONYA PROGRESS NOTE Date: 07/24/2024 Author: Lencho Stuart MD Patient ID: Ana Contreras is a 79 y.o. female : 1945 MR#: [id number] SUBJECTIVE CC: Follow-up renal failure No complaints. Asks appropriate questions. Overnight small hematuria noted. Hg stable. D/w renal team Denies SOB, CP. No complaints. ROS: Denies shortness of breath Denies chest pain No fevers OBJECTIVE Vitals: Vitals: 07/24/24 0731 BP: (!) 155/53 Pulse: 74 Resp: 16 Temp: 36.3 ??C (97.3 ??F) SpO2: 98% Physical Exam: Gen: Awake and alert. NAD psych: Mood stable. Pleasant CVS: S1-S2 Pulmonary: No wheezes or crackles anteriorly. GI: Bowel sounds present. No tenderness extremity: Mild left lower extremity swelling. LAB RESULTS HEMATOLOGY Lab Results Component Value Date WBC 13.1 (H) 07/24/2024 WBC 13.1 (H) 07/24/2024 HGB 7.7 (L) 07/24/2024 HGB 7.7 (L) 07/24/2024 HCT 25.3 (L) 07/24/2024 HCT 25.3 (L) 07/24/2024 MCV 81.4 07/24/2024 MCV 81.4 07/24/2024 PLT 174 07/24/2024 PLT 174 07/24/2024 CHEMISTRY Lab Results Component Value Date GLUCOSE 260 (H) 07/24/2024 NA 132 (L) 07/24/2024 K 4.1 07/24/2024 CO2 29 07/24/2024 CL 94 (L) 07/24/2024 BUN 54 (H) 07/24/2024 CREATININE 2.84 (H) 07/24/2024 EGFR 16 (L) 07/24/2024 CALCIUM 8.0 (L) 07/24/2024 MG 2.2 07/17/2024 PHOS 2.9 07/17/2024 ANIONGAP 9 07/24/2024 Current Medications: atorvastatin, 10 mg, oral, Nightly B complex-vitamin C-folic acid, 1 each, oral, Daily docusate sodium, 100 mg, oral, BID insulin glargine, 10 Units, subcutaneous, Nightly insulin lispro, 1-6 Units, subcutaneous, Before meals & nightly insulin lispro, 3 Units, subcutaneous, TID AC pantoprazole, 40 mg, oral, q AM AC polyetheylene glycol, 17 g, oral, Daily predniSONE, 60 mg, oral, Daily sodium chloride, 10 mL, intravenous, BID sodium chloride, 10 mL, intravenous, BID sulfamethoxazole-trimethoprim, 160 mg, oral, Once per day on Thursday thiamine, 100 mg, oral, Daily heparin, 18 Units/kg/hr, Last Rate: 21 Units/kg/hr (07/24/24 1302) PRN medications: acetaminophen, benzonatate, dextrose 50%, dextrose 50%, dextrose, dextrose, glucagon injection, heparin OR heparin, hydrALAZINE, HYDROmorphone, naloxone, ondansetron, oxyCODONE, artificial tears, Insert peripheral IV AND Maintain IV access AND Saline lock IV AND sodium chloride AND sodium chloride, [COMPLETED] Insert Midline AND Maintain IV access AND Saline lock IV AND sodium chloride AND sodium chloride, sodium chloride, sodium chloride, sodium chloride Fluids: heparin, 18 Units/kg/hr, Last Rate: 21 Units/kg/hr (07/24/24 1302) ASSESSMENT & PLAN 79-year-old female with PMH of DM type II, HTN, CKD stage IV, iron deficiency anemia, dyslipidemia and recent diagnosis of lung nodule (with planned bronchoscopy and EBUS) who presented to the hospital after wellness check was called to police by her daughter. Apparently she was not answering to her calls and she was found on the ground unable to get up. Mentation she was afebrile without hypoxiaand had WBC of 27K, hemoglobin 7.3 (prior hemoglobin 7.4 on 06/17/2024), RENE with BUN 63 and creatinine 4. Calcium 10.6 with corrected calcium around 12. High sensitive troponin 80, 81, CK6 149. UA had proteinuria, glucosuria, 21 RBCs, 7 WBCs and negative bacteria. EKG demonstrated sinus rhythm with first-degree AV block, RBBB and QTc 454. CT head demonstrated no acute intracranial process. CT cervical spine with no fracture chest x-ray without acute findings. Patient was started on IV fluids, admitted for further monitoring and treatment. -RENE/ATN. -Underlying CKD stage IV with prior creatinine in May around 2 No renal obstruction or evidence of paraproteinemia on SPEP. RENE did not respond to IV fluids and albumin. Patient was started on hemodialysis on 07/15/2024. +Proteinuria. 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 Pt was treated with IV Solumedrol 500 mg daily x3 (completed on 07/23). Start prednisone 60 mg daily. On prophylactic Bactrim 3 times a week and PPI. S/p renal biopsy on 07/22 and path pending. Agree with renal team. Hematuria could be from lopez trauma and it will be discontinued. Bladder scan Q 6 hours to make sure not retaining (oliguric now). -Anemia with iron deficiency. Treated with IV iron. Transfused PRBC. -Left lower extremity DVT. Remains on Heparin drip. Will not change to NOAC as she is scheduled for another biopsy (see below). -Right upper lobe pulmonary nodules/right lung mass. Patient had CT-guided biopsy on 05/23/2024 which was nondiagnostic. She had been referred to thoracic team and plan is for endoscopy with EBUS. Pt's daughter, Dennise updated on 07/23. She is agreeable and wants her mother to stay in the hospitalfor Lung mass biopsy which is scheduled on Thursday07/27/[address] Montez. I sent the haiku to [place] yesterday but have not heard back. Will need to inform thoracic surgical team that pt will be in the hospital for the procedure. Continue Heparin drip meanwhile. -Hypokalemia. Treated. -Hypercalcemia. On presentation calcium 10.6 with corrected calcium around 12. PTH low. PTH related peptide pending (as malignancy is a possibility). -Acute metabolic encephalopathy. Resolved. -Leukocytosis. Improved. -Traumatic rhabdomyolysis. Resolved. -Mildly elevated TSH. With normal FT4 and slightly low FT3. Recommend reevaluation with thyroid studies after 4 weeks No indication for thyroid replacement presently. -DM type II with neuropathy Oral hypoglycemic medications including metformin had been discontinued due to renal dysfunction. Lantus 10 units at bedtime and POC/SSI -Dyslipidemia. On statin -HTN. Lisinopril had been discontinued on admission due to RENE. DVT prophylaxis: Heparin CODE STATUS: Full code Disposition. Needs SNF. Barrier: pending SNF bed, anticoagulation/lung mass biopsy HCP: Daughter, Dennise. [phone] * Tony Golden MD - 07/24/2024 8:59 AM EST Images from the original note were not included. Progress Note CHIEF COMPLAINT F/u SUBJECTIVE Patient seen and examined No complaints Some bleed in lopez cath- hep gtt stopped at this time MEDICAL HISTORY Past Medical History: Diagnosis Date Anemia Arthritis Blindness Decreased vision 11/29/2014 DX:Decreased vision Diabetes mellitus, type 2 (CMS/HCC) 02/14/2014 DX:Diabetes mellitus, type 2 (HCC) DVT, lower extremity (CMS/HCC) LEFT LEG Family history of early CAD 03/01/2014 DX:Family history of early CAD Family history of factor V Leiden mutation 12/12/2015 DX:Family history of factor V Leiden mutation History of renal dialysis CURRENT VIA [facility] (hearing loss) Hyperlipidemia 02/14/2014 DX:Hyperlipidemia Hypertension 02/14/2014 DX:Hypertension Joint pain Lung nodule Microalbuminuria 09/22/2016 DX:Microalbuminuria Osteoporosis 02/14/2014 DX:Osteoporosis MEDICATIONS atorvastatin, 10 mg, oral, Nightly B complex-vitamin C-folic acid, 1 each, oral, Daily docusate sodium, 100 mg, oral, BID insulin glargine, 10 Units, subcutaneous, Nightly insulin lispro, 1-6 Units, subcutaneous, Before meals & nightly insulin lispro, 3 Units, subcutaneous, TID AC pantoprazole, 40 mg, oral, q AM AC polyetheylene glycol, 17 g, oral, Daily predniSONE, 60 mg, oral, Daily sodium chloride, 10 mL, intravenous, BID sodium chloride, 10 mL, intravenous, BID sulfamethoxazole-trimethoprim, 160 mg, oral, Once per day on Thursday thiamine, 100 mg, oral, Daily PRN medications: acetaminophen, benzonatate, dextrose 50%, dextrose 50%, dextrose, dextrose, glucagon injection, heparin OR heparin, hydrALAZINE, HYDROmorphone, naloxone, ondansetron, oxyCODONE, artificial tears, Insert peripheral IV AND Maintain IV access AND Saline lock IV AND sodium chloride AND sodium chloride, [COMPLETED] Insert Midline AND Maintain IV access AND Saline lock IV AND sodium chloride AND sodium chloride, sodium chloride, sodium chloride, sodium chloride heparin, 18 Units/kg/hr, Last Rate: 21 Units/kg/hr (07/23/24 0698) OBJECTIVE Vital signs in last 24 hours: Visit Vitals BP (!) 155/53 (BP Location: Left arm, Patient Position: Lying) Pulse 74 Temp 36.3 ??C (97.3 ??F) (Oral) Resp 16 Intake/Output last 24 hours: Intake/Output Summary (Last 24 hours) at 07/24/2024 0859 Last data filed at 07/24/2024 0630 Gross per 24 hour Intake 692.29 ml Output 3020 ml Net -2327.71 ml Weights: Admission Weight: Weight: 72.6 kg (160 lb) Wt Readings from Last 3 Encounters: 07/24/24 77.1 kg (169 lb 14.4 oz) 06/17/24 76.2 kg (168 lb) 06/13/24 76.5 kg (168 lb 9.6 oz) Physical Exam: General: No acute distress HEENT: Normocephalic, atraumatic, anicteric Cardiovascular: S1 S2 normal Respiratory: unlabored Gl: soft non-distended Extremities: No cyanosis Neurological: Alert Integumentary: no rash Psych: Calm, cooperative LABS Results from last 7 days Lab Units 07/24/24 0648 07/23/24 0544 07/22/24 1840 07/22/24 0311 WBC AUTO K/mcL 13.1* 13.1* 11.6* -- 9.6 HEMOGLOBIN g/dL 7.7* 7.7* 6.9* 7.1* 7.2* HEMATOCRIT % 25.3* 25.3* 23.0* 23.3* 24.3* MCV FL 81.4 81.4 81.6 -- 80.5 PLATELETS K/mcL 174 174 206 -- 169 Results from last 7 days Lab Units 07/24/24 0648 07/23/24 0544 07/22/24 0311 CREATININE mg/dL 2.84* 4.16* 2.87* BUN mg/dL 54* 76* 40* SODIUM mmol/L 132* 130* 132* POTASSIUM mmol/L 4.1 5.5 5.0 CHLORIDE mmol/L 94* 92* 95* CO2 mmol/L 29 29 27 Phosphorus Date Value Ref Range Status 07/17/2024 2.9 2.5 - 4.5 mg/dL Final 07/15/2024 4.2 2.5 - 4.5 mg/dL Final 07/13/2024 3.0 2.5 - 4.5 mg/dL Final PTH Date Value Ref Range Status 07/10/2024 10.5 (L) 18.5 - 88.0 pcg/mL Final 07/08/2024 6.5 (L) 18.5 - 88.0 pcg/mL Final Iron Date Value Ref Range Status 07/08/2024 20 (L) 40 - 150 mcg/dL Final Comment: Hemolysis present 05/31/2024 14 (L) 40 - 150 mcg/dL Final TIBC Date Value Ref Range Status 07/08/2024 186 (L) 250 - 450 mcg/dL Final 05/31/2024 278 250 - 450 mcg/dL Final Ferritin Date Value Ref Range Status 07/08/2024 708 (H) 8 - 252 ng/mL Final 05/31/2024 294 (H) 8 - 252 ng/mL Final No results found for: COLORUA , CLARITYUA , SPECGRAVUA , PHUA , PROTUA , GLUCOSEUA , KETONESUA , BILIRUBINUA , BLOODUA , UROBILINOGUA , NITRITEUA IMPRESSION and PLAN RENE Glomerulonephritis Anemia CKD 3 RENE remains HD dependent with no sign of recovery yet Significant proteinuria MAC 3.6 mg/g 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) Will need immunosuppression (once tissue diagnosis available) No obstruction by renal US No evidence for paraproteinemia Negative hepatitis B surface Ag Low C3 Normal C4 MPO Ab negative PR3 Ab positive 165 No M spike on SPEP Scr ~ 1.13 mg/dl on 01/24-- now 2.6---> 4.16--> 2.8 today Nephrogenic anemia Iron deficiency Completed IV pulse steroid 3days, from today on po pred 60mg daily Continues to be oligoanuric REC Kidney biopsy thursday HD - 5th treatment thursday Cont prednisone 60 mg daily PPI Bactrim DS thrice weekly (M-W-F) Hold apixaban- C/w heparingtt Renal diet IV iron Transfuse for Hb < 7 Outpatient HD being arranged (placed request to regional HD placement) Referral to [facility] made as patient lives in the area Ok to dc lopez- ? hematuria from local trauma in the setting of AC- had retained in the past- now oliguric, bladder scan q shift ordered for monitoring of uop/ renal recovery Tony Golden MD * Katina Machuca RN - 07/24/2024 3:44 AM EST Goals: Problem: Balance Goal: Patient will demonstrate Intervention to enhance balance for safe completion of daily activities Outcome: Not Progressing Goal: Patient will maintain balance Outcome: Not Progressing Goal: Patient will maintain balance to allow for safe mobility Outcome: Not Progressing Goal: Patient will maintain standing and sitting balance to allow for completion of daily activities Outcome: Not Progressing Goal: Patient will tolerate standing Outcome: Not Progressing Goal: Maintains dynamic standing balance with upper extremity support Outcome: Not Progressing Goal: Maintains dynamic standing balance without upper extremity support Outcome: Not Progressing Goal: Maintains static standing balance with upper extremity support Outcome: Not Progressing Goal: Maintains static standing balance without upper extremity support Outcome: Not Progressing Goal: Maintains static sitting balance with upper extremity support Outcome: Not Progressing Goal: Maintains static sitting balance without upper extremity support Outcome: Not Progressing Goal: Maintains dynamic sitting balance with upper extremity support Outcome: Not Progressing Goal: Maintains dynamic sitting balance without upper extremity support Outcome: Not Progressing Problem: Mobility Goal: Patient will be able to go up and down a curb/step with the appropriate device Outcome: Not Progressing Goal: Patient will propel wheelchair household/community distances Outcome: Not Progressing Goal: Patient will demonstrate kitchen mobility Outcome: Not Progressing Goal: Patient will recall and demonstrate 3 out of 3 total hip precautions during mobility Outcome: Not Progressing Goal: Patient will ambulate community distance Outcome: Not Progressing Goal: Patient will propel wheelchair household distances Outcome: Not Progressing Goal: Patient will ambulate household distance Outcome: Not Progressing Identify possible barriers to meeting goals/advancing plan of care: Continues on heparin drip Stability of the patient: Moderately Stable - Low risk of patient condition declining or worsening End of Shift Summary: stable night. Heparin remains at21ux/kg/hr. Cont low to no u/o * Louis Welch RN - 07/23/2024 11:20 AM EST 07/23/24 1120 Vital Signs Patient Identification Yes Temp 36.5 ??C (97.7 ??F) Temp Source Temporal Heart Rate 80 Heart Rate Source Right;Brachial Resp 17 BP 139/79 MAP (Device/Manual Entry) 98 mmHg MAP (Calculated) 99 mm Hg BP Method Automatic BP Location Right arm Patient Position Lying SpO2 98 % (Room Air) Post-Hemodialysis Assessment Rinseback Volume (mL) 150 mL Total Liters Processed (L/min) 95.1 L/min Dialyzer Clearance Clear Duration of Treatment (minutes) 240 minutes Hemodialysis Output (mL) 3000 mL Patient Response to Treatment/Comments Pt tolerated 4.0 hr hemodialysis tx well. 3.0 L net fluid removed. No new complaints. Pt stable post-tx and at transport back to room. Report given to primary nurse Melany Agarwal RN, Next Hemodialysis tx Thursday07/26/2024 Weight (Unable to obtain weight) * Lencho Stuart MD - 07/23/2024 11:06 AM EST Images from the original note were not included. SONYA PROGRESS NOTE Date: 07/23/2024 Author: Lencho Stuart MD Patient ID: Ana Contreras is a 79 y.o. female : 1945 MR#: [id number] SUBJECTIVE CC: Follow-up renal failure Post procedure hemoglobin stable yesterday evening and patient is back on heparin drip. Seen during hemodialysis. No complaints and appears comfortable. Hemoglobin slightly down to 6.9 and she is agreeable to proceed with blood transfusion. ROS: Denies shortness of breath Denies chest pain No fevers OBJECTIVE Vitals: Vitals: 07/23/24 1030 BP: 131/68 Pulse: 80 Resp: Temp: SpO2: Physical Exam: Gen: Awake and alert. Limited exam as patient is undergoing hemodialysis psych: Mood stable. CVS: S1-S2 Pulmonary: No wheezes or crackles anteriorly. GI: Bowel sounds present. No tenderness extremity: Mild left lower extremity swelling. LAB RESULTS HEMATOLOGY Lab Results Component Value Date WBC 11.6 (H) 07/23/2024 HGB 6.9 (L) 07/23/2024 HCT 23.0 (L) 07/23/2024 MCV 81.6 07/23/2024 PLT 206 07/23/2024 CHEMISTRY Lab Results Component Value Date GLUCOSE 378 (H) 07/23/2024 NA 130 (L) 07/23/2024 K 5.5 07/23/2024 CO2 29 07/23/2024 CL 92 (L) 07/23/2024 BUN 76 (H) 07/23/2024 CREATININE 4.16 (H) 07/23/2024 EGFR 10 (L) 07/23/2024 CALCIUM 7.9 (L) 07/23/2024 MG 2.2 07/17/2024 PHOS 2.9 07/17/2024 ANIONGAP 9 07/23/2024 Current Medications: atorvastatin, 10 mg, oral, Nightly B complex-vitamin C-folic acid, 1 each, oral, Daily docusate sodium, 100 mg, oral, BID insulin glargine, 10 Units, subcutaneous, Nightly insulin lispro, 1-6 Units, subcutaneous, Before meals & nightly insulin lispro, 3 Units, subcutaneous, TID AC methylPREDNISolone sod suc, 500 mg, intravenous, q24h GRISELDA pantoprazole, 40 mg, oral, q AM AC polyetheylene glycol, 17 g, oral, Daily sodium chloride, 10 mL, intravenous, BID sulfamethoxazole-trimethoprim, 160 mg, oral, Once per day on Thursday thiamine, 100 mg, oral, Daily heparin, 18 Units/kg/hr, Last Rate: 23 Units/kg/hr (07/23/24 1009) PRN medications: acetaminophen, benzonatate, dextrose 50%, dextrose 50%, dextrose, dextrose, glucagon injection, heparin OR heparin, hydrALAZINE, HYDROmorphone, naloxone, ondansetron, oxyCODONE, artificial tears, Insert peripheral IV AND Maintain IV access AND Saline lock IV AND sodium chloride AND sodium chloride, sodium chloride, sodium chloride Fluids: heparin, 18 Units/kg/hr, Last Rate: 23 Units/kg/hr (07/23/24 1009) ASSESSMENT & PLAN 79-year-old female with PMH of DM type II, HTN, CKD stage IV, iron deficiency anemia, dyslipidemia and recent diagnosis of lung nodule (with planned bronchoscopy and EBUS) who presented to the hospital after wellness check was called to police by her daughter. Apparently she was not answering to her calls and she was found on the ground unable to get up. Mentation she was afebrile without hypoxiaand had WBC of 27K, hemoglobin 7.3 (prior hemoglobin 7.4 on 06/17/2024), RENE with BUN 63 and creatinine 4. Calcium 10.6 with corrected calcium around 12. High sensitive troponin 80, 81, CK6 149. UA had proteinuria, glucosuria, 21 RBCs, 7 WBCs and negative bacteria. EKG demonstrated sinus rhythm with first-degree AV block, RBBB and QTc 454. CT head demonstrated no acute intracranial process. CT cervical spine with no fracture chest x-ray without acute findings. Patient was started on IV fluids, admitted for further monitoring and treatment. -RENE/ATN. -Underlying CKD stage IV with prior creatinine in May around 2 No renal obstruction or evidence of paraproteinemia on SPEP. RENE did not respond to IV fluids and albumin. Patient was started on hemodialysis on 07/15/2024. +Proteinuria. 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 Pt was started on IV Solumedrol 500 mg daily on 07/21/24. X3 doses. Start prednisone 60 mg daily on Thursday. On prophylactic Bactrim 3 times a week and PPI. S/p renal biopsy on 07/22 I will update pt's daughter, Dennise today about findings, plans of care and goals. -Anemia with iron deficiency. Treated with IV iron. Transfuse 1 PRBC. -Left lower extremity DVT. Remains on Heparin drip As pt has upcoming lung mass bioopsy/procedure scheduled on 07/27/24 and she will be here on weekend, will keep her on Heparin drip and will hold off giving NOAC. DC date also not clear as has no accepting facility yet. She ma need to stay here till 07/27 -Hypokalemia. Treated. -Hypercalcemia. On presentation calcium 10.6 with corrected calcium around 12. PTH low. PTH related peptide pending (as malignancy is a possibility). -Acute metabolic encephalopathy. Multifactorial and likely related to electrolyte abnormalities. Mental status back to baseline -Right upper lobe pulmonary nodules/right lung mass. Patient had CT-guided biopsy on 05/23/2024 which was nondiagnostic. She had been referred to thoracic team and plan is for endoscopy with EBUS. Reached out to Thoracicsurgical team and presently pt is scheduled for procedure on 07/27/24 if she is still in the hospital. -Leukocytosis. Improved. -Traumatic rhabdomyolysis. Resolved. -Mildly elevated TSH. With normal FT4 and slightly low FT3. Recommend reevaluation with thyroid studies after 4 weeks No indication for thyroid replacement presently. -DM type II with neuropathy Oral hypoglycemic medications including metformin had been discontinued due to renal dysfunction. Lantus 10 units at bedtime and POC/SSI -Dyslipidemia. On statin -HTN. Lisinopril had been discontinued on admission due to RENE. DVT prophylaxis: Heparin CODE STATUS: Full code Disposition. Needs SNF. Barrier: renal biopsy, IV steroids, pending SNF bed. DC likely next week. HCP: Daughter, Dennise. [phone] ICK * Nelli Schmidt OT - 07/23/2024 9:00 AM EST Therapy session was attempted for Ana Contreras by Nelli Schmidt OT on 07/23/2024. The patient was unable to be seen for the following reason(s): Out of room at a medical procedure. Pt at dialysis. Per case management note, family is questioningCMO. Will keep pt on therapy program until final decision is made. Plan for return visit: As soon as possible * Tony Golden MD - 07/23/2024 8:49 AM EST Images from the original note were not included. Progress Note CHIEF COMPLAINT F/u SUBJECTIVE Patient seen and examined in dialysis today No complaints MEDICAL HISTORY Past Medical History: Diagnosis Date Anemia Arthritis Blindness Decreased vision 11/29/2014 DX:Decreased vision Diabetes mellitus, type 2 (CMS/HCC) 02/14/2014 DX:Diabetes mellitus, type 2 (HCC) DVT, lower extremity (CMS/HCC) LEFT LEG Family history of early CAD 03/01/2014 DX:Family history of early CAD Family history of factor V Leiden mutation 12/12/2015 DX:Family history of factor V Leiden mutation History of renal dialysis CURRENT [facility]IA [facility] (hearing loss) Hyperlipidemia 02/14/2014 DX:Hyperlipidemia Hypertension 02/14/2014 DX:Hypertension Joint pain Lung nodule Microalbuminuria 09/22/2016 DX:Microalbuminuria Osteoporosis 02/14/2014 DX:Osteoporosis MEDICATIONS atorvastatin, 10 mg, oral, Nightly B complex-vitamin C-folic acid, 1 each, oral, Daily docusate sodium, 100 mg, oral, BID insulin glargine, 10 Units, subcutaneous, Nightly insulin lispro, 1-6 Units, subcutaneous, Before meals & nightly insulin lispro, 3 Units, subcutaneous, TID AC methylPREDNISolone sod suc, 500 mg, intravenous, q24h GRISELDA pantoprazole, 40 mg, oral, q AM AC polyetheylene glycol, 17 g, oral, Daily sodium chloride, 10 mL, intravenous, BID sulfamethoxazole-trimethoprim, 160 mg, oral, Once per day on Thursday thiamine, 100 mg, oral, Daily PRN medications: acetaminophen, benzonatate, dextrose 50%, dextrose 50%, dextrose, dextrose, glucagon injection, heparin OR heparin, hydrALAZINE, HYDROmorphone, naloxone, ondansetron, oxyCODONE, artificial tears, Insert peripheral IV AND Maintain IV access AND Saline lock IV AND sodium chloride AND sodium chloride, sodium chloride, sodium chloride heparin, 18 Units/kg/hr, Last Rate: 24 Units/kg/hr (07/23/24 0641) OBJECTIVE Vital signs in last 24 hours: Visit Vitals BP (!) 152/82 Pulse 87 Temp 36.6 ??C (97.9 ??F) (Temporal) Resp 16 Intake/Output last 24 hours: Intake/Output Summary (Last 24 hours) at 07/23/2024 0849 Last data filed at 07/23/2024 0845 Gross per 24 hour Intake 436.27 ml Output 30 ml Net 406.27 ml Weights: Admission Weight: Weight: 72.6 kg (160 lb) Wt Readings from Last 3 Encounters: 07/23/24 82.1 kg (181 lb) 06/17/24 76.2 kg (168 lb) 06/13/24 76.5 kg (168 lb 9.6 oz) Physical Exam: General: No acute distress HEENT: Normocephalic, atraumatic, anicteric Cardiovascular: S1 S2 normal Respiratory: unlabored Gl: soft non-distended Extremities: No cyanosis Neurological: Alert Integumentary: no rash Psych: Calm, cooperative LABS Results from last 7 days Lab Units 07/23/24 0544 07/22/24 1840 07/22/24 0311 07/21/24 0855 WBC AUTO K/mcL 11.6* -- 9.6 18.9* HEMOGLOBIN g/dL 6.9* 7.1* 7.2* 7.3* HEMATOCRIT % 23.0* 23.3* 24.3* 23.7* MCV FL 81.6 -- 80.5 80.3 PLATELETS K/mcL 206 -- 169 195 Results from last 7 days Lab Units 07/23/24 0544 07/22/24 0311 07/21/24 0855 CREATININE mg/dL 4.16* 2.87* 5.05* BUN mg/dL 76* 40* 63* SODIUM mmol/L 130* 132* 130* POTASSIUM mmol/L 5.5 5.0 4.8 CHLORIDE mmol/L 92* 95* 92* CO2 mmol/L 29 27 29 Phosphorus Date Value Ref Range Status 07/17/2024 2.9 2.5 - 4.5 mg/dL Final 07/15/2024 4.2 2.5 - 4.5 mg/dL Final 07/13/2024 3.0 2.5 - 4.5 mg/dL Final PTH Date Value Ref Range Status 07/10/2024 10.5 (L) 18.5 - 88.0 pcg/mL Final 07/08/2024 6.5 (L) 18.5 - 88.0 pcg/mL Final Iron Date Value Ref Range Status 07/08/2024 20 (L) 40 - 150 mcg/dL Final Comment: Hemolysis present 05/31/2024 14 (L) 40 - 150 mcg/dL Final TIBC Date Value Ref Range Status 07/08/2024 186 (L) 250 - 450 mcg/dL Final 05/31/2024 278 250 - 450 mcg/dL Final Ferritin Date Value Ref Range Status 07/08/2024 708 (H) 8 - 252 ng/mL Final 05/31/2024 294 (H) 8 - 252 ng/mL Final No results found for: COLORUA , CLARITYUA , SPECGRAVUA , PHUA , PROTUA , GLUCOSEUA , KETONESUA , BILIRUBINUA , BLOODUA , UROBILINOGUA , NITRITEUA IMPRESSION and PLAN RENE Glomerulonephritis Anemia CKD 3 RENE remains HD dependent with no sign of recovery yet Significant proteinuria MAC 3.6 mg/g 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) Will need immunosuppression (once tissue diagnosis available) No obstruction by renal US No evidence for paraproteinemia Negative hepatitis B surface Ag Low C3 Normal C4 MPO Ab negative PR3 Ab positive 165 No M spike on SPEP Scr ~ 1.13 mg/dl on 01/24-- now 2.6---> 4.16 Nephrogenic anemia Iron deficiency Currently on IV pulse steroid REC Kidney biopsy thursday HD - treatment today Methylprednisolone 500 mg IV for 3 days (day 3 today) Then Start prednisone 60 mg daily on Thursday PPI Bactrim DS thrice weekly (-W-) Hold apixaban C/w heparin Renal diet IV iron Transfuse for Hb < 7 Outpatient HD being arranged (placed request to regional HD placement) Referral to [facility] made as patient lives in the area Tony Golden MD * Pau Awad RN - 07/23/2024 4:40 AM EST Heparin gtt infusing, Anti-xa draw due Q6, next draw at 0800. Last at 0200 was 0.87, drip decreasedper protocol. No s/s bleeding. * Pau Awad RN - 07/23/2024 4:39 AM EST Goals: dialysis, heparin gtt Identify possible barriers to meeting goals/advancing plan of care: heparin gtt Stability of the patient: Moderately Unstable - Medium risk of patient condition declining or worsening End of Shift Summary: Problem: Falls: Fall Risk (Adult IP ) Goal: (Goal) Patient will experience maximum safety and reduce risk for falls. Outcome: Progressing Goal: Patient will not fall or injure themselves during hospitalization. Outcome: Progressing Problem: Balance Goal: Patient will demonstrate Intervention to enhance balance for safe completion of daily activities Outcome: Progressing Goal: Patient will maintain balance Outcome: Progressing Goal: Patient will maintain balance to allow for safe mobility Outcome: Progressing Goal: Patient will maintain standing and sitting balance to allow for completion of daily activities Outcome: Progressing Goal: Patient will tolerate standing Outcome: Progressing Goal: Maintains dynamic standing balance with upper extremity support Outcome: Progressing Goal: Maintains dynamic standing balance without upper extremity support Outcome: Progressing Goal: Maintains static standing balance with upper extremity support Outcome: Progressing Goal: Maintains static standing balance without upper extremity support Outcome: Progressing Goal: Maintains static sitting balance with upper extremity support Outcome: Progressing Goal: Maintains static sitting balance without upper extremity support Outcome: Progressing Goal: Maintains dynamic sitting balance with upper extremity support Outcome: Progressing Goal: Maintains dynamic sitting balance without upper extremity support Outcome: Progressing Problem: Mobility Goal: Patient will be able to go up and down a curb/step with the appropriate device Outcome: Progressing Goal: Patient will propel wheelchair household/community distances Outcome: Progressing Goal: Patient will demonstrate kitchen mobility Outcome: Progressing Goal: Patient will recall and demonstrate 3 out of 3 total hip precautions during mobility Outcome: Progressing Goal: Patient will ambulate community distance Outcome: Progressing Goal: Patient will propel wheelchair household distances Outcome: Progressing Goal: Patient will ambulate household distance Outcome: Progressing Goal: Patient will navigate 4-6 steps with rails/device Outcome: Progressing Goal: Patient will demonstrate safe mobility requirements Outcome: Progressing Goal: Patient will propel the wheelchair Outcome: Progressing Goal: Patient will ambulate Outcome: Progressing Goal: Patient will ambulate up and down a curb/step Outcome: Progressing Goal: Patient will ascend and descend four to six stairs Outcome: Progressing Goal: Patient will ascend and descend a flight of stairs Outcome: Progressing Problem: Safety Goal: Patient will adhere to precautions during ADL's and transfers Outcome: Progressing Goal: Patient will demonstrate safety requirements appropriate to situation/environment Outcome: Progressing Goal: Patient will utilize safety techniques Outcome: Progressing Goal: Patient locks brakes on wheelchair Outcome: Progressing Goal: Patient uses call light consistently to request assistance with transfers Outcome: Progressing Goal: Free from fall injury Outcome: Progressing Problem: Transfers Goal: Patient will transfer to car Outcome: Progressing Goal: Patient will transfer from one surface to another Outcome: Progressing Goal: Patient will demonstrate safe transfer techniques Outcome: Progressing Goal: Patient will transfer to commode Outcome: Progressing Goal: Patient will transfer to tub/shower Outcome: Progressing Goal: Patient will transfer from wheelchair to toilet Outcome: Progressing Goal: Transfer from bed to chair. Outcome: Progressing Goal: Patient to transfer to and from sit to supine Outcome: Progressing Goal: Patient will perform bed mobility Outcome: Progressing Goal: Patient will roll Outcome: Progressing Goal: Patient will transfer sit to and from stand Outcome: Progressing Goal: Patient will perform car transfer Outcome: Progressing Goal: Patient will perform toilet transfer Outcome: Progressing Goal: Patient will perform tub/shower transfer Outcome: Progressing Goal: Patient will follow hip precautions during transfers Outcome: Progressing Goal: Patient maintains weight bearing status during transfers Outcome: Progressing Problem: Pain Goal: Patient will manage pain with the appropriate technique/Intervention Outcome: Progressing Goal: Patient will demonstrate intervention for managing pain Outcome: Progressing Goal: Patient will reduce or eliminate use of analgesics Outcome: Progressing Goal: Pain is manageable through therapies Outcome: Progressing Goal: Patient will verbalize an acceptable level of pain Outcome: Progressing Goal: Patients pain is managed to allow active participation in daily activities Outcome: Progressing Goal: Patient will increase activity level Outcome: Progressing Goal: Patient verbalizes a reduction in pain level Outcome: Progressing * Jacquelin Davidson RN - 07/22/2024 4:58 PM EST NOTIFY PROVIDER WHEN H/H RESULTS TO DETERMINE RESTART OF HEPARIN GTT. * Lencho Stuart MD - 07/22/2024 3:02 PM EST Images from the original note were not included. [place] PROGRESS NOTE Date: 07/22/2024 Author: Lencho Stuart MD Patient ID: Ana Contreras is a 79 y.o. female : 1945 MR#: [id number] SUBJECTIVE CC: Follow-up renal failure Seen in the morning. Pt had no complaints. Heparin was held this morning. Scheduled for renal biopsy. ROS: Chest pain No shortness of breath No leg pains while at rest No fever OBJECTIVE Vitals: Vitals: 07/22/24 0809 BP: (!) 140/77 Pulse: 90 Resp: 17 Temp: 36.5 ??C (97.7 ??F) SpO2: 97% Physical Exam: Gen: Awake and alert. Not in acute distress and appears comfortable. Psych: Mood stable. CVS: S1-S2 Pulmonary: No wheezes or crackles anteriorly. GI: Bowel sounds present. NT extremity: Mild left lower extremity swelling. LAB RESULTS HEMATOLOGY Lab Results Component Value Date WBC 9.6 07/22/2024 HGB 7.2 (L) 07/22/2024 HCT 24.3 (L) 07/22/2024 MCV 80.5 07/22/2024 PLT 169 07/22/2024 CHEMISTRY Lab Results Component Value Date GLUCOSE 280 (H) 07/22/2024 NA 132 (L) 07/22/2024 K 5.0 07/22/2024 CO2 27 07/22/2024 CL 95 (L) 07/22/2024 BUN 40 (H) 07/22/2024 CREATININE 2.87 (H) 07/22/2024 EGFR 16 (L) 07/22/2024 CALCIUM 7.4 (L) 07/22/2024 MG 2.2 07/17/2024 PHOS 2.9 07/17/2024 ANIONGAP 10 07/22/2024 Current Medications: atorvastatin, 10 mg, oral, Nightly B complex-vitamin C-folic acid, 1 each, oral, Daily docusate sodium, 100 mg, oral, BID insulin glargine, 10 Units, subcutaneous, Nightly insulin lispro, 1-6 Units, subcutaneous, Before meals & nightly insulin lispro, 3 Units, subcutaneous, TID AC methylPREDNISolone sod suc, 500 mg, intravenous, q24h GRISELDA pantoprazole, 40 mg, oral, q AM AC polyetheylene glycol, 17 g, oral, Daily sodium chloride, 10 mL, intravenous, BID sulfamethoxazole-trimethoprim, 160 mg, oral, Once per day on Thursday thiamine, 100 mg, oral, Daily heparin, 18 Units/kg/hr, Last Rate: Stopped (07/22/24 0648) PRN medications: acetaminophen, benzonatate, dextrose 50%, dextrose 50%, dextrose, dextrose, glucagon injection, heparin OR heparin, hydrALAZINE, HYDROmorphone, naloxone, ondansetron, oxyCODONE, artificial tears, Insert peripheral IV AND Maintain IV access AND Saline lock IV AND sodium chloride AND sodium chloride, sodium chloride, sodium chloride Fluids: heparin, 18 Units/kg/hr, Last Rate: Stopped (07/22/24 0648) ASSESSMENT & PLAN 79-year-old female with PMH of DM type II, HTN, CKD stage IV, iron deficiency anemia, dyslipidemia and recent diagnosis of lung nodule (with planned bronchoscopy and EBUS) who presented to the hospital after wellness check was called to police by her daughter. Apparently she was not answering to her calls and she was found on the ground unable to get up. Mentation she was afebrile without hypoxiaand had WBC of 27K, hemoglobin 7.3 (prior hemoglobin 7.4 on 06/17/2024), RENE with BUN 63 and creatinine 4. Calcium 10.6 with corrected calcium around 12. High sensitive troponin 80, 81, CK6 149. UA had proteinuria, glucosuria, 21 RBCs, 7 WBCs and negative bacteria. EKG demonstrated sinus rhythm with first-degree AV block, RBBB and QTc 454. CT head demonstrated no acute intracranial process. CT cervical spine with no fracture chest x-ray without acute findings. Patient was started on IV fluids, admitted for further monitoring and treatment. -RENE/ATN. No renal obstruction or evidence of paraproteinemia on SPEP. RENE did not respond to IV fluids and albumin. Patient was started on hemodialysis on 07/15/2024. 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 Pt was started on IV Solumedrol 500 mg daily on 07/21/24. X3 doses. Cr down to 2.8 today. ?Steroid response. Then start prednisone 60 mg daily. On prophylactic Bactrim3 times a week and PPI. IR planning to do renal biopsy today. -Underlying CKD stage IV with prior creatinine in May around 2 -Anemia with iron deficiency. Treated with IV iron. Hg stable >7 -Left lower extremity DVT. Heparin drip post procedure. As pt has upcoming lung mass bioopsy/procedure scheduled on 07/27/24 and she will be here on weekend, will keep her on Heparin drip and will hold off giving NOAC. DC date also not clear as has no accepting facility yet. -Hypokalemia. Treated. -Hypercalcemia. On presentation calcium 10.6 with corrected calcium around 12. PTH low. PTH related peptide pending (as malignancy is a possibility). -Acute metabolic encephalopathy. Multifactorial and likely related to electrolyte abnormalities. Mental status back to baseline -Right upper lobe pulmonary nodules/right lung mass. Patient had CT-guided biopsy on 05/23/2024 which was nondiagnostic. She had been referred to thoracic team and plan is for endoscopy with EBUS. Reached out to Thoracicsurgical team and presently pt is scheduled for procedure on 07/27/24 if she is still in the hospital. -Leukocytosis. Improved for the past few days and resolved today. ?resolved d/t steroids. -Traumatic rhabdomyolysis. Resolved. -Mildly elevated TSH. With normal FT4 and slightly low FT3. Recommend reevaluation with thyroid studies after 4 weeks No indication for thyroid replacement presently. -DM type II with neuropathy Oral hypoglycemic medications including metformin had been discontinued due to renal dysfunction. Lantus 10 units at bedtime and POC/SSI -Dyslipidemia. On statin -HTN. Lisinopril had been discontinued on admission due to RENE. DVT prophylaxis: Heparin CODE STATUS: Full code Disposition. Needs SNF. Barrier: renal biopsy, IV steroids, pending SNF bed. DC likely next week. HCP: Daughter, Dennise. [phone] * Kayleigh Laguna RD - 07/22/2024 12:44 PM EST 07/22/2024 @ 12:44 PM EST Nutrition Follow Up Note Reason for RD Intervention: Assessment Type: Follow-up Reason for Assessment: High MST Score Anthropometrics: Height: 162.5 cm (63.98 ) Weight: 78.6 kg (173 lb 3.2 oz) Weight Method: Actual BMI (Calculated): 29.8 BMI Class: Overweight IBW (lbs): 120 Current Diet and Supplements: Dietary Orders (From admission, onward) Start Ordered 07/22/24 0001 Adult NPO diet Location: [facility]; Diet: NPO- Except for Medications Diet effective midnight Question Answer Comment Location [facility] Diet NPO- Except for Medications 07/21/24 1326 07/11/24 1133 Dietary nutrition supplements Two times daily (BID); [facility]; Diabetic Supplement Continuous Question Answer Comment Frequency Two times daily (BID) Location [facility] Supplements Diabetic Supplement 07/11/24 0029 Food/Nutrition History: Previous Diet / Nutrition Education / Counseling: Per MST screeening, pt reports weight loss of 24-33 lb in past 3 months, and reports poor PO intake. Pt living by herself prior to admission, but hassupport from children. History of DM- takes glipizide at home. No noted food allergies. Appetite LEDGER CLERK: Poor Intake LEDGER CLERK: Decreased Weight History: Wt Readings from Last 10 Encounters: 07/22/24 78.6 kg (173 lb 3.2 oz) 06/17/24 76.2 kg (168 lb) 06/13/24 76.5 kg (168 lb 9.6 oz) 06/06/24 76.4 kg (168 lb 6.4 oz) 05/30/24 76.7 kg (169 lb) 05/23/24 76.2 kg (168 lb) 05/13/24 77.6 kg (171 lb) 04/27/24 78.8 kg (173 lb 11.2 oz) 04/18/24 79.8 kg (176 lb) 04/12/24 80.3 kg (177 lb) Subjective Assessment: Pt seen for follow up. NPO for kidney biopsy today. Continues on dialysis. Pt reports appetite is about the same- eating ~50% of meals. States she has been drinking glucerna supplements. Likely discharge to short term rehab once medically ready. Updated weight 07/22 was 173 lb. Nutrition-Related Lab Values: Results from last 7 days Lab Units 07/22/24 1048 07/22/24 0343 07/22/24 0311 07/17/24 0757 07/17/24 0630 SODIUM mmol/L -- -- 132* < > 133 POTASSIUM mmol/L -- -- 5.0 < > 3.8 PHOSPHORUS mg/dL -- -- -- -- 2.9 MAGNESIUM mg/dL -- -- -- -- 2.2 CHLORIDE mmol/L -- -- 95* < > 96 CO2 mmol/L -- -- 27 < > 26 BUN mg/dL -- -- 40* < > 53* CREATININE mg/dL -- -- 2.87* < > 4.03* EGFR mL/min/1.73m2 -- -- 16* < > 11* CALCIUM mg/dL -- -- 7.4* < > 7.7* POCT GLUCOSE mg/dL 280* < > -- < > -- GLUCOSE mg/dL -- -- 264* < > 293* WBC AUTO K/mcL -- -- 9.6 < > 23.0* 23.0* < > = values in this interval not displayed. Lab Results Component Value Date LIPASE <10 (L) 07/12/2024 Food/Nutrition-Current Status: Intake Type: P.O. Appetite: Fair Intake Amount (%): 25-50% Intake Assessment: Inadequate Nutrition Focused Physical Findings: Overall Appearance: No visual findings of muscle or fat depletion Skin: Skin intact per front end engineer Nutrition Diagnosis: Code Type: None Identified Status: Resolved Diagnosis: Unintentional Weight Loss Etiology: Changes in taste and appetite or preference Symptoms: pt report of 24-33 lb weight loss in 3 months prior to admission Nutrition Interventions: Meals/Snacks, Medical Food Supplement, Diet Order -Advance diet as medically able after surgery- recommend return to IDDSI 7 easy to chew, 60 gm carb/ 2 gm Na diet. Pt reports difficulty with chewing and does better with softer foods -Continue glucerna BID, neprhocap, 100 mg thiamine for inadequate PO - Follow goals of care discussions. Goals: Patient will tolerate diet progression. , Patient will initially consume at least 50% of meals. , Patient will consume ONS., Improvement in renal labs., Electrolytes within normal range., Maintain weight., Stooling appropriately., and Maintain skin integrity. Monitoring/Evaluation: Fluid/Beverage Intake, Food Intake, Medical Food Supp/Oral Nutrition Supp, Weight, Renal/Electrolyte Profile, Diet Order Follow Up: Nutrition Priority Level: Moderate Please consult nutrition if needed sooner. RD remains available and will continue to follow. Signature: Kayleigh Laguna RD * Tarsha Corea RN - 07/22/2024 11:52 AM EST DANITZA: 07/26 Barriers: Renal Bx, new HD, trend labs, H/H, repeat Pt eval, pulmonary IR bx? Pt needs asst w feeding. 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 Per IPR, Pulmonary IR stated possible intervention 07/27. Plan: STR pending accepting facility w HD support. * Nithya Constantino, PT - 07/22/2024 8:30 AM EST Patient: Ana Contreras Age: 79 y.o. Sex: female Acute encephalopathy [facility] Physical Therapy Treatment Ambulation: Walking Assistance: Minimum assistance Walking Deficit: Steadying, Verbal cueing, Supervision/safety awareness, Increased time to complete, Assist for trunk control, Assist for weight shifting, Limited endurance, Impaired balance, LE weakness Device: Rolling walker Distance Ambulated (ft): 2 PLOF: Level of [place]: Independent with mobility and functional transfers Lives With: Alone Type of Home: House Home Adaptive Equipment: Cane, Rollator Home Layout: One level Home Access: Stairs to enter without rails DME Needs: r walker PT Discharge Recommendation: Reason for current recommendation based on assessment: Based on present level of mobility, pt is below baseline for functioning, is at a high risk for falls and is unable to safely ambulate a household distance at this time. Pt was previously independent and would benefit from the most intensive level of post- acute rehab for best functional outcome. SUBJECTIVE RN approved pt. for PT visit at this time. Pt. was educated on the PT role, understood the benefitsof working with PT, and was agreeable. 07/22/24 08 PT Last Visit PT Received On 07/22/24 General Family/Caregiver Present No PT Time Calculation PT Start Time 829 PT Stop Time 904 PT Time Calculation (min) 35 min Precautions Medical Precautions Fall Risk Safety Interventions Call chavarria within reach RUE Weight Bearing Status Full LUE Weight Bearing Status Full RLE Weight Bearing Status Full LLE Weight Bearing Status Full Oxygen Therapy Oxygen Therapy None (Room air) O2 Delivery Method Nasal cannula Pain Assessment Pain Assessment No/denies pain Cognition Following Commands Follows one step commands with increased time Activity Tolerance Endurance Tolerates 10 - 20 min exercise with multiple rests Activity Tolerance Comments standing /gait activity limited by dizziness Static Sitting Balance Static Sitting-Level of Assistance Close supervision Dynamic Sitting Balance Dynamic Sitting-Level of Assistance Standby assistance Static Standing Balance Static Standing-Level of Assistance Contact guard Static Standing-Comment/Number of Minutes fair- Dynamic Standing Balance Dynamic Standing-Level of Assistance Minimum assistance Dynamic Standing-Balance Support Right upper extremity supported;Left upper extremity supported Dynamic Standing-Comments fair- Bed Mobility Sitting to Lying Assistance Moderate assistance Lying to Sitting Assistance Moderate assistance Transfers Sit to Stand Assistance Minimum assistance Ambulation Walking Assistance Minimum assistance Device Rolling walker Distance Ambulated (ft) 2 Procedures Procedures Therapeutic Activity Therapeutic Activity Therapeutic Activity Time Entry 35 Therapeutic Activity 1 bed mobility training: supine<-.sitting, bridging with vcs to assist in scooting, supine and scooting , seated over EOB Therapeutic Activity 2 sitting over EOB for actiivty tolerance, balance; (arom , of each limb to challenge balance, with slight post lean but no LOB; pt sat , with hands over EOB , x 3 min) Therapeutic Activity 3 sit to stand transfers at rwalker, requiring only min assist for lift off and balance; she stood momentarily , but with c/o dizziness; after a seated rest, stood again , at rwalker, min assist and took 4 steps sideways toward HOB in prep of supine, with assist to weight shiftand balance (pt was assisted back to bed due to dizziness which did not dissipate) PT Assessment PT Assessment Results Decreased strength;Decreased range of motion;Decreased endurance;Impaired balance;Impaired gait;Decreased mobility;Impaired vision;Other (Comment) (dizziness) Prognosis Good Medical Staff Made Aware Yes Plan PT Discharge Recommendations Inpatient rehab facility placement;correction facility placement Equipment Recommended r walker Barriers to Discharge dizziness, impending kidney biopsy today EDUCATION Education Documentation ADL Training, taught by Nithya Constantino PT at 07/22/2024 10:26 AM. Learner: Patient Readiness: Acceptance Method: Explanation Response: Verbalizes Understanding Comment: pt advised to use call chavarria to get OOB, alarms in place Home Exercise Program, taught by Nithya Constantino PT at 07/22/2024 10:26 AM. Learner: Patient Readiness: Acceptance Method: Explanation Response: Verbalizes Understanding Comment: pt advised to use call chavarria to get OOB, alarms in place Mobility Training, taught by Nithya Constantino PT at 07/22/2024 10:26 AM. Learner: Patient Readiness: Acceptance Method: Explanation Response: Verbalizes Understanding Comment: pt advised to use call chavarria to get OOB, alarms in place Education Comments No comments found. * Miguel Quiles MD - 07/22/2024 7:33 AM EST Images from the original note were not included. Progress Note CHIEF COMPLAINT F/u SUBJECTIVE Patient seen and examined No complaints MEDICAL HISTORY Past Medical History: Diagnosis Date Anemia Arthritis Blindness Decreased vision 11/29/2014 DX:Decreased vision Diabetes mellitus, type 2 (CMS/HCC) 02/14/2014 DX:Diabetes mellitus, type 2 (HCC) DVT, lower extremity (CMS/HCC) LEFT LEG Family history of early CAD 03/01/2014 DX:Family history of early CAD Family history of factor V Leiden mutation 12/12/2015 DX:Family history of factor V Leiden mutation History of renal dialysis CURRENT [facility] (hearing loss) Hyperlipidemia 02/14/2014 DX:Hyperlipidemia Hypertension 02/14/2014 DX:Hypertension Joint pain Lung nodule Microalbuminuria 09/22/2016 DX:Microalbuminuria Osteoporosis 02/14/2014 DX:Osteoporosis MEDICATIONS atorvastatin, 10 mg, oral, Nightly B complex-vitamin C-folic acid, 1 each, oral, Daily docusate sodium, 100 mg, oral, BID insulin glargine, 10 Units, subcutaneous, Nightly insulin lispro, 1-6 Units, subcutaneous, Before meals & nightly insulin lispro, 3 Units, subcutaneous, TID AC methylPREDNISolone sod suc, 500 mg, intravenous, q24h GRISELDA pantoprazole, 40 mg, oral, q AM AC polyetheylene glycol, 17 g, oral, Daily sodium chloride, 10 mL, intravenous, BID sulfamethoxazole-trimethoprim, 160 mg, oral, Once per day on Thursday thiamine, 100 mg, oral, Daily PRN medications: acetaminophen, benzonatate, dextrose 50%, dextrose 50%, dextrose, dextrose, glucagon injection, heparin OR heparin, hydrALAZINE, HYDROmorphone, naloxone, ondansetron, oxyCODONE, artificial tears, Insert peripheral IV AND Maintain IV access AND Saline lock IV AND sodium chloride AND sodium chloride, sodium chloride, sodium chloride heparin, 18 Units/kg/hr, Last Rate: Stopped (07/22/24 0648) OBJECTIVE Vital signs in last 24 hours: Visit Vitals BP (!) 144/65 (BP Location: Right arm, Patient Position: Lying) Pulse 92 Temp 36.4 ??C (97.5 ??F) (Oral) Resp 18 Intake/Output last 24 hours: Intake/Output Summary (Last 24 hours) at 07/22/2024 0733 Last data filed at 07/22/2024 0648 Gross per 24 hour Intake 571.11 ml Output 2050 ml Net -1478.89 ml Weights: Admission Weight: Weight: 72.6 kg (160 lb) Wt Readings from Last 3 Encounters: 07/21/24 78.6 kg (173 lb 4.8 oz) 06/17/24 76.2 kg (168 lb) 06/13/24 76.5 kg (168 lb 9.6 oz) Physical Exam: General: No acute distress HEENT: Normocephalic, atraumatic, anicteric Cardiovascular: S1 S2 normal Respiratory: unlabored Gl: soft non-distended Extremities: No cyanosis Neurological: Alert Integumentary: no rash Psych: Calm, cooperative LABS Results from last 7 days Lab Units 07/22/24 0311 07/21/24 0855 07/21/24 0512 WBC AUTO K/mcL 9.6 18.9* 18.8* HEMOGLOBIN g/dL 7.2* 7.3* 7.3* HEMATOCRIT % 24.3* 23.7* 23.6* MCV FL 80.5 80.3 81.1 PLATELETS K/mcL 169 195 200 Results from last 7 days Lab Units 07/22/24 0311 07/21/24 0855 07/20/24 0546 CREATININE mg/dL 2.87* 5.05* 3.68* BUN mg/dL 40* 63* 41* SODIUM mmol/L 132* 130* 132* POTASSIUM mmol/L 5.0 4.8 4.2 CHLORIDE mmol/L 95* 92* 95* CO2 mmol/L 27 29 29 Phosphorus Date Value Ref Range Status 07/17/2024 2.9 2.5 - 4.5 mg/dL Final 07/15/2024 4.2 2.5 - 4.5 mg/dL Final 07/13/2024 3.0 2.5 - 4.5 mg/dL Final PTH Date Value Ref Range Status 07/10/2024 10.5 (L) 18.5 - 88.0 pcg/mL Final 07/08/2024 6.5 (L) 18.5 - 88.0 pcg/mL Final Iron Date Value Ref Range Status 07/08/2024 20 (L) 40 - 150 mcg/dL Final Comment: Hemolysis present 05/31/2024 14 (L) 40 - 150 mcg/dL Final TIBC Date Value Ref Range Status 07/08/2024 186 (L) 250 - 450 mcg/dL Final 05/31/2024 278 250 - 450 mcg/dL Final Ferritin Date Value Ref Range Status 07/08/2024 708 (H) 8 - 252 ng/mL Final 05/31/2024 294 (H) 8 - 252 ng/mL Final No results found for: COLORUA , CLARITYUA , SPECGRAVUA , PHUA , PROTUA , GLUCOSEUA , KETONESUA , BILIRUBINUA , BLOODUA , UROBILINOGUA , NITRITEUA IMPRESSION and PLAN RENE Glomerulonephritis Anemia CKD 3 S/p HD yesterday RENE remains HD dependent with no sign of recovery yet Significant proteinuria MAC 3.6 mg/g 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) Scheduled for kidney biopsy Currently on IV pulse steroid Will need immunosuppression (once tissue diagnosis available) No obstruction by renal US No evidence for paraproteinemia Negative hepatitis B surface Ag Low C3 Normal C4 MPO Ab negative PR3 Ab positive 165 No M spike on SPEP Scr ~ 1.13 mg/dl on 01/24 Nephrogenic anemia Iron deficiency REC Kidney biopsy today HD in am Methylprednisolone 500 mg IV for 3 days then 60 mg orally daily (day 2 today) Start prednisone 60 mg daily on Thursday PPI Bactrim DS thrice weekly (M-W-F) Hold apixaban C/w heparin Renal diet IV iron Transfuse for Hb < 7 Outpatient HD being arranged (placed request to regional HD placement) Referral to [facility] made as patient lives in the area Miguel Quiles MD * Katina Mendez RN - 07/22/2024 7:00 AM EST Problem: Falls: Fall Risk (Adult IP ) Goal: (Goal) Patient will experience maximum safety and reduce risk for falls. Outcome: Progressing Goal: Patient will not fall or injure themselves during hospitalization. Outcome: Progressing Problem: Balance Goal: Patient will demonstrate Intervention to enhance balance for safe completion of daily activities Outcome: Not Progressing Goal: Patient will maintain balance Outcome: Not Progressing Goal: Patient will maintain balance to allow for safe mobility Outcome: Not Progressing Goal: Patient will maintain standing and sitting balance to allow for completion of daily activities Outcome: Not Progressing Goal: Patient will tolerate standing Outcome: Not Progressing Goal: Maintains dynamic standing balance with upper extremity support Outcome: Not Progressing Goal: Maintains dynamic standing balance without upper extremity support Outcome: Not Progressing Goal: Maintains static standing balance with upper extremity support Outcome: Progressing Goal: Maintains static standing balance without upper extremity support Outcome: Not Progressing Goal: Maintains static sitting balance with upper extremity support Outcome: Not Progressing Goal: Maintains static sitting balance without upper extremity support Outcome: Not Progressing Goal: Maintains dynamic sitting balance with upper extremity support Outcome: Not Progressing Goal: Maintains dynamic sitting balance without upper extremity support Outcome: Not Progressing Problem: Mobility Goal: Patient will be able to go up and down a curb/step with the appropriate device Outcome: Not Progressing Goal: Patient will propel wheelchair household/community distances Outcome: Not Progressing Goal: Patient will demonstrate kitchen mobility Outcome: Not Progressing Goal: Patient will recall and demonstrate 3 out of 3 total hip precautions during mobility Outcome: Not Progressing Goal: Patient will ambulate community distance Outcome: Not Progressing Goal: Patient will propel wheelchair household distances Outcome: Not Progressing Goal: Patient will ambulate household distance Outcome: Progressing Goal: Patient will navigate 4-6 steps with rails/device Outcome: Not Progressing Goal: Patient will demonstrate safe mobility requirements Outcome: Not Progressing Goal: Patient will propel the wheelchair Outcome: Not Progressing Goal: Patient will ambulate Outcome: Not Progressing Goal: Patient will ambulate up and down a curb/step Outcome: Not Progressing Goal: Patient will ascend and descend four to six stairs Outcome: Not Progressing Goal: Patient will ascend and descend a flight of stairs Outcome: Not Progressing Problem: Safety Goal: Patient will adhere to precautions during ADL's and transfers Outcome: Not Progressing Goal: Patient will demonstrate safety requirements appropriate to situation/environment Outcome: Not Progressing Goal: Patient will utilize safety techniques Outcome: Not Progressing Goal: Patient locks brakes on wheelchair Outcome: Not Progressing Goal: Patient uses call light consistently to request assistance with transfers Outcome: Not Progressing Goal: Free from fall injury Outcome: Not Progressing Problem: Transfers Goal: Patient will transfer to car Outcome: Not Progressing Goal: Patient will transfer from one surface to another Outcome: Not Progressing Goal: Patient will demonstrate safe transfer techniques Outcome: Not Progressing Goal: Patient will transfer to commode Outcome: Not Progressing Goal: Patient will transfer to tub/shower Outcome: Not Progressing Goal: Patient will transfer from wheelchair to toilet Outcome: Not Progressing Goal: Transfer from bed to chair. Outcome: Not Progressing Goal: Patient to transfer to and from sit to supine Outcome: Not Progressing Goal: Patient will perform bed mobility Outcome: Not Progressing Goal: Patient will roll Outcome: Not Progressing Goal: Patient will transfer sit to and from stand Outcome: Not Progressing Goal: Patient will perform car transfer Outcome: Not Progressing Goal: Patient will perform toilet transfer Outcome: Not Progressing Goal: Patient will perform tub/shower transfer Outcome: Not Progressing Goal: Patient will follow hip precautions during transfers Outcome: Not Progressing Goal: Patient maintains weight bearing status during transfers Outcome: Not Progressing Problem: Pain Goal: Patient will manage pain with the appropriate technique/Intervention Outcome: Progressing Goal: Patient will demonstrate intervention for managing pain Outcome: Progressing Goal: Patient will reduce or eliminate use of analgesics Outcome: Progressing Goal: Pain is manageable through therapies Outcome: Progressing Goal: Patient will verbalize an acceptable level of pain Outcome: Progressing Goal: Patients pain is managed to allow active participation in daily activities Outcome: Progressing Goal: Patient will increase activity level Outcome: Progressing Goal: Patient verbalizes a reduction in pain level Outcome: Progressing Problem: Compromised Skin Integrity Goal: Patient will be free from infection Outcome: Progressing Goal: Patient will maintain/improve skin integrity through proper skin care techniques Outcome: Progressing Goal: Patient will demonstrate appropriate pressure relief techniques Outcome: Progressing Goal: Patient will demonstrate appropriate skin care techniques Outcome: Progressing Goal: Patient will be free from infection Outcome: Progressing Goal: Patient demonstrates skin care/treatment/dressing change Outcome: Progressing Goal: Patient will maintain good skin integrity Outcome: Progressing Goal: Patient exhibits signs of wound healing. Outcome: Progressing Goal: Patient demonstrates pressure reduction techniques Outcome: Progressing Goal: Patient demonstrates preventative skin care measures Outcome: Progressing Goal: Patient will perform skin checks daily on residual limb Outcome: Progressing Goal: Patient will appropriately don and doff shrinkers and prevent and skin breakdown Outcome: Progressing Problem: Physical Regulation:Infection Management Goal: Signs and symptoms of infection will decrease Outcome: Progressing Goal: Complications related to the disease process, condition or treatment will be avoided or minimized Outcome: Progressing Goal: Diagnostic test results will improve Outcome: Progressing Problem: Skin Integrity: Pressure Injury Actual or Risk of Goal: Will not develop new pressure injury Outcome: Not Progressing Goal: Skin integrity will improve Outcome: Not Progressing Goal: Risk for impaired skin integrity will decrease Outcome: Not Progressing Problem: Activity:Pressure Injury Actual or Risk of Goal: Mobility will improve Outcome: Not Progressing Problem: Nutritional:Pressure Injury Actual or Risk of Goal: Nutritional status will improve Outcome: Progressing Problem: Patient Specific Problem: Pressure Injury Actual or Risk of Goal: Patient Specific Outcome Outcome: Progressing Problem: Cognitive: Bernardo Brock Fall Risk Goal: Last Known Fall Outcome: Progressing Goal: Mobility requiring assistance of person or device Outcome: Not Progressing Goal: Dizziness Outcome: Progressing Goal: Medications Outcome: Progressing Goal: Mental Status/LOC/Awareness Outcome: Progressing Goal: Toileting Needs Outcome: Progressing Goal: Volume and Electrolyte Status Outcome: Progressing Goal: Communication/Sensory Outcome: Progressing Goal: Behavior Outcome: Progressing Problem: Dressings Lower Extremities Goal: Patient will complete lower body dressing Outcome: Not Progressing Goals: Pt safety, no s/s of bleeding, monitor urine output Identify possible barriers to meeting goals/advancing plan of care: Renal Bx, HD Stability of the patient: Moderately Stable - Low risk of patient condition declining or worsening End of Shift Summary: No c/o pain overnight. NPO since MN. VS stable. Heparin gtt stopped at 0648. Bed alarm on. * Jolene Cardona RN - 07/21/2024 5:56 PM EST Goals: Identify possible barriers to meeting goals/advancing plan of care: Heparin gtt/renal biopsy Stability of the patient: Moderately Unstable - Medium risk of patient condition declining or worsening End of Shift Summary: Heparin gtt infusing per order. Dose of IV Methylprednisolone administered. Pt denies pain, N/V. VSS. Dose of lactulose given per order for constipation, last BM 07/16/24. Lopez drained 50 ml urine. * Lencho Stuart MD - 07/21/2024 1:34 PM EST Images from the original note were not included. SONYA PROGRESS NOTE Date: 07/21/2024 Author: Lencho Stuart MD Patient ID: Ana Contreras is a 79 y.o. female : 1945 MR#: [id number] SUBJECTIVE CC: Follow-up renal failure Seen during dialysis. Denies pain. Denies SOB Was NPO for renal biopsy. Informed by Dr. Palomo that he is planning to do procedure on Thursday and wanted to hold Heparin at 6am. PR3 positive. Pt was started on high dose steroids. ROS: No fever No nausea No vomiting OBJECTIVE Vitals: Vitals: 07/21/24 1255 BP: (!) 150/70 Pulse: 87 Resp: 16 Temp: 36.5 ??C (97.7 ??F) SpO2: 100% Physical Exam: Gen:NAD. Comfortable. Awake and watching TV Psych: Mood stable. CVS: S1-S2 Pulmonary: No wheezes or crackles anteriorly. GI: Bowel sounds present. NT Extremity: Mild left lower extremity swelling. Compression stockings in place LAB RESULTS HEMATOLOGY Lab Results Component Value Date WBC 18.9 (H) 07/21/2024 HGB 7.3 (L) 07/21/2024 HCT 23.7 (L) 07/21/2024 MCV 80.3 07/21/2024 PLT 195 07/21/2024 CHEMISTRY Lab Results Component Value Date GLUCOSE 142 (H) 07/21/2024 NA 130 (L) 07/21/2024 K 4.8 07/21/2024 CO2 29 07/21/2024 CL 92 (L) 07/21/2024 BUN 63 (H) 07/21/2024 CREATININE 5.05 (H) 07/21/2024 EGFR 8 (L) 07/21/2024 CALCIUM 7.6 (L) 07/21/2024 MG 2.2 07/17/2024 PHOS 2.9 07/17/2024 ANIONGAP 9 07/21/2024 Current Medications: atorvastatin, 10 mg, oral, Nightly B complex-vitamin C-folic acid, 1 each, oral, Daily heparin, 80 Units/kg, intravenous, Once insulin glargine, 10 Units, subcutaneous, Nightly insulin lispro, 1-6 Units, subcutaneous, Before meals & nightly insulin lispro, 3 Units, subcutaneous, TID AC methylPREDNISolone sod suc, 500 mg, intravenous, q24h GRISELDA pantoprazole, 40 mg, oral, q AM AC polyetheylene glycol, 17 g, oral, Daily sodium chloride, 10 mL, intravenous, BID [START ON 07/22/2024] sulfamethoxazole-trimethoprim, 160 mg, oral, Once per day on Thursday thiamine, 100 mg, oral, Daily heparin, 18 Units/kg/hr PRN medications: acetaminophen, benzonatate, dextrose 50%, dextrose 50%, dextrose, dextrose, glucagon injection, heparin OR heparin, hydrALAZINE, HYDROmorphone, naloxone, ondansetron, oxyCODONE, artificial tears, Insert peripheral IV AND Maintain IV access AND Saline lock IV AND sodium chloride AND sodium chloride, sodium chloride, sodium chloride Fluids: heparin, 18 Units/kg/hr ASSESSMENT & PLAN 79-year-old female with PMH of DM type II, HTN, CKD stage IV, iron deficiency anemia, dyslipidemia and recent diagnosis of lung nodule (with planned bronchoscopy and EBUS) who presented to the hospital after wellness check was called to police by her daughter. Apparently she was not answering to her calls and she was found on the ground unable to get up. Mentation she was afebrile without hypoxiaand had WBC of 27K, hemoglobin 7.3 (prior hemoglobin 7.4 on 06/17/2024), RENE with BUN 63 and creatinine 4. Calcium 10.6 with corrected calcium around 12. High sensitive troponin 80, 81, CK6 149. UA had proteinuria, glucosuria, 21 RBCs, 7 WBCs and negative bacteria. EKG demonstrated sinus rhythm with first-degree AV block, RBBB and QTc 454. CT head demonstrated no acute intracranial process. CT cervical spine with no fracture chest x-ray without acute findings. Patient was started on IV fluids, admitted for further monitoring and treatment. -RENE/ATN. No renal obstruction or evidence of paraproteinemia on SPEP. RENE did not respond to IV fluids and albumin. Patient was started on hemodialysis on 07/15/2024. 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 Pt was started on IV Solumedrol 500 mg x3 and needs renal biopsy. IR planning to do renal biopsy tomorrow. Resume heparin drip. Stop Heparin drip at 6am tomorrow (07/22/24). Check anti Xa at 9am Renal biopsy ~ 11am tmr. -Underlying CKD stage IV with prior creatinine in May around 2 -Anemia with iron deficiency. Treated with IV iron. Hg stable >7 -Left lower extremity DVT. Heparin drip. NOAC post biopsy. -Hypokalemia. Treated. -Hypercalcemia. On presentation calcium 10.6 with corrected calcium around 12. PTH low. PTH related peptide pending (as malignancy is a possibility). -Acute metabolic encephalopathy. Multifactorial and likely related to electrolyte abnormalities. Mental status back to baseline -Right upper lobe pulmonary nodules/right lung mass. Patient had CT-guided biopsy on 05/23/2024 which was nondiagnostic. She had been referred to thoracic team and plan is for endoscopy with EBUS. I was asked to check if thoracic team can accommodate this procedure which she is here and will text the team. -Leukocytosis. She has had nonproductive cough present for several months which is likely related to her lung mass. Viral respiratory panel negative. Blood cultures and urine cultures without growth. CT chest with no evidence of infiltrates or obvious source. Leukocytosis could be reactive and/or malignancy related. WBC trending down. -Traumatic rhabdomyolysis. Resolved. -Mildly elevated TSH. With normal FT4 and slightly low FT3. Recommend reevaluation with thyroid studies after 4 weeks No indication for thyroid replacement presently. -DM type II with neuropathy Oral hypoglycemic medications including metformin had been discontinued due to renal dysfunction. Currently on Lantus 10 units at bedtime and POC/SSI -Dyslipidemia. On statin -HTN. Lisinopril had been discontinued on admission due to RENE. DVT prophylaxis: Heparin CODE STATUS: Full code Disposition. Needs SNF. Barrier: renal biopsy, IV steroids, pending SNF bed. DC likely next week. HCP: Daughter, Dennise. [phone] * Louis Welch RN - 07/21/2024 12:55 PM EST 07/21/24 1255 Vital Signs Patient Identification Yes Temp 36.5 ??C (97.7 ??F) Temp Source Temporal Heart Rate 87 Heart Rate Source Left;Brachial Resp 16 BP (!) 150/70 MAP (Device/Manual Entry) 96 mmHg MAP (Calculated) 97 mm Hg BP Method Automatic BP Location Upper;Left arm Patient Position Lying CO2 Monitor (mmHg) (n/a) Arterial Line BP (n/a) Arterial Line MAP (mmHg) (n/a) SpO2 100 % (Room Air) Post-Hemodialysis Assessment Rinseback Volume (mL) 150 mL Total Liters Processed (L/min) 94.5 L/min Dialyzer Clearance Clear Duration of Treatment (minutes) 240 minutes Hemodialysis Output (mL) 2000 mL Patient Response to Treatment/Comments Pt tolerated 4.0 hr hemodialysis tx well. 2.0 L net fluid removed. No new complaints. Pt stable post-tx and at transport back to room. Report given to primary nurse Jolene Cardona RN, Next Hemodialysis tx Thursday07/23/2024 Weight (Unable to obtain weight) * Miguel Quiles MD - 07/21/2024 10:51 AM EST Images from the original note were not included. Progress Note CHIEF COMPLAINT F/u SUBJECTIVE Patient seen and examined on HD No complaints MEDICAL HISTORY Past Medical History: Diagnosis Date Anemia Arthritis Blindness Decreased vision 11/29/2014 DX:Decreased vision Diabetes mellitus, type 2 (CMS/HCC) 02/14/2014 DX:Diabetes mellitus, type 2 (HCC) DVT, lower extremity (CMS/HCC) LEFT LEG Family history of early CAD 03/01/2014 DX:Family history of early CAD Family history of factor V Leiden mutation 12/12/2015 DX:Family history of factor V Leiden mutation History of renal dialysis CURRENT VIA [facility] (hearing loss) Hyperlipidemia 02/14/2014 DX:Hyperlipidemia Hypertension 02/14/2014 DX:Hypertension Joint pain Lung nodule Microalbuminuria 09/22/2016 DX:Microalbuminuria Osteoporosis 02/14/2014 DX:Osteoporosis MEDICATIONS atorvastatin, 10 mg, oral, Nightly B complex-vitamin C-folic acid, 1 each, oral, Daily insulin glargine, 10 Units, subcutaneous, Nightly insulin lispro, 1-6 Units, subcutaneous, Before meals & nightly insulin lispro, 3 Units, subcutaneous, TID AC pantoprazole, 40 mg, oral, q AM AC polyetheylene glycol, 17 g, oral, Daily sodium chloride, 10 mL, intravenous, BID thiamine, 100 mg, oral, Daily PRN medications: acetaminophen, benzonatate, dextrose 50%, dextrose 50%, dextrose, dextrose, glucagon injection, hydrALAZINE, HYDROmorphone, naloxone, ondansetron, oxyCODONE, artificial tears, Insertperipheral IV AND Maintain IV access AND Saline lock IV AND sodium chloride AND sodium chloride, sodium chloride, sodium chloride OBJECTIVE Vital signs in last 24 hours: Visit Vitals BP 138/59 Pulse 71 Temp 36.8 ??C (98.3 ??F) (Temporal) Resp 16 Intake/Output last 24 hours: Intake/Output Summary (Last 24 hours) at 07/21/2024 1051 Last data filed at 07/21/2024 1015 Gross per 24 hour Intake 458 ml Output 50 ml Net 408 ml Weights: Admission Weight: Weight: 72.6 kg (160 lb) Wt Readings from Last 3 Encounters: 07/21/24 82.4 kg (181 lb 9.6 oz) 06/17/24 76.2 kg (168 lb) 06/13/24 76.5 kg (168 lb 9.6 oz) Physical Exam: General: No acute distress HEENT: Normocephalic, atraumatic, anicteric Cardiovascular: S1 S2 normal Respiratory: unlabored Gl: soft non-distended Extremities: No cyanosis Neurological: Alert Integumentary: no rash Psych: Calm, cooperative LABS Results from last 7 days Lab Units 07/21/24 0855 07/21/24 0512 07/20/24 0546 WBC AUTO K/mcL 18.9* 18.8* 20.9* 20.9* HEMOGLOBIN g/dL 7.3* 7.3* 7.3* 7.3* HEMATOCRIT % 23.7* 23.6* 23.6* 23.6* MCV FL 80.3 81.1 77.9* 77.9* PLATELETS K/mcL 195 200 217 217 Results from last 7 days Lab Units 07/21/24 0855 07/20/24 0546 07/19/24 0652 CREATININE mg/dL 5.05* 3.68* 5.96* BUN mg/dL 63* 41* 83* SODIUM mmol/L 130* 132* 128* POTASSIUM mmol/L 4.8 4.2 4.9 CHLORIDE mmol/L 92* 95* 93* CO2 mmol/L 29 29 28 Phosphorus Date Value Ref Range Status 07/17/2024 2.9 2.5 - 4.5 mg/dL Final 07/15/2024 4.2 2.5 - 4.5 mg/dL Final 07/13/2024 3.0 2.5 - 4.5 mg/dL Final PTH Date Value Ref Range Status 07/10/2024 10.5 (L) 18.5 - 88.0 pcg/mL Final 07/08/2024 6.5 (L) 18.5 - 88.0 pcg/mL Final Iron Date Value Ref Range Status 07/08/2024 20 (L) 40 - 150 mcg/dL Final Comment: Hemolysis present 05/31/2024 14 (L) 40 - 150 mcg/dL Final TIBC Date Value Ref Range Status 07/08/2024 186 (L) 250 - 450 mcg/dL Final 05/31/2024 278 250 - 450 mcg/dL Final Ferritin Date Value Ref Range Status 07/08/2024 708 (H) 8 - 252 ng/mL Final 05/31/2024 294 (H) 8 - 252 ng/mL Final No results found for: COLORUA , CLARITYUA , SPECGRAVUA , PHUA , PROTUA , GLUCOSEUA , KETONESUA , BILIRUBINUA , BLOODUA , UROBILINOGUA , NITRITEUA IMPRESSION and PLAN RENE Glomerulonephritis Anemia CKD 3 RENE remains HD dependent with no sign of recovery yet Significant proteinuria MAC 3.6 mg/g 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) need kidney biopsy Will need combination of steroid and immunosuppression (once tissue diagnosis available) No obstruction by renal US No evidence for paraproteinemia Negative hepatitis B surface Ag Low C3 Normal C4 MPO Ab negative PR3 Ab positive 165 No M spike on SPEP Scr ~ 1.13 mg/dl on 01/24 Nephrogenic anemia Iron deficiency REC Kidney biopsy HD today Methylprednisolone 500 mg IV for 3 days then 60 mg orally daily PPI Bactrim DS thrice weekly (M-W-F) Hold apixaban C/w heparin Renal diet IV iron Transfuse for Hb < 7 Outpatient HD being arranged (placed request to regional HD placement) Referral to [facility] made as patient lives in the area Miguel Quiles MD * Tarsha Corea RN - 07/21/2024 7:25 AM EST [facility] expanded A/STR search after s/w family and learning family will transport to HD if needed. * Katina Mendez RN - 07/21/2024 6:00 AM EST Problem: Falls: Fall Risk (Adult IP BH) Goal: (Goal) Patient will experience maximum safety and reduce risk for falls. Outcome: Progressing Goal: Patient will not fall or injure themselves during hospitalization. Outcome: Progressing Problem: Balance Goal: Patient will demonstrate Intervention to enhance balance for safe completion of daily activities Outcome: Not Progressing Goal: Patient will maintain balance Outcome: Not Progressing Goal: Patient will maintain balance to allow for safe mobility Outcome: Not Progressing Goal: Patient will maintain standing and sitting balance to allow for completion of daily activities Outcome: Not Progressing Goal: Patient will tolerate standing Outcome: Not Progressing Goal: Maintains dynamic standing balance with upper extremity support Outcome: Not Progressing Goal: Maintains dynamic standing balance without upper extremity support Outcome: Not Progressing Goal: Maintains static standing balance with upper extremity support Outcome: Not Progressing Goal: Maintains static standing balance without upper extremity support Outcome: Not Progressing Goal: Maintains static sitting balance with upper extremity support Outcome: Not Progressing Goal: Maintains static sitting balance without upper extremity support Outcome: Not Progressing Goal: Maintains dynamic sitting balance with upper extremity support Outcome: Not Progressing Goal: Maintains dynamic sitting balance without upper extremity support Outcome: Not Progressing Problem: Mobility Goal: Patient will be able to go up and down a curb/step with the appropriate device Outcome: Not Progressing Goal: Patient will propel wheelchair household/community distances Outcome: Not Progressing Goal: Patient will demonstrate kitchen mobility Outcome: Not Progressing Goal: Patient will recall and demonstrate 3 out of 3 total hip precautions during mobility Outcome: Not Progressing Goal: Patient will ambulate community distance Outcome: Not Progressing Goal: Patient will propel wheelchair household distances Outcome: Not Progressing Goal: Patient will ambulate household distance Outcome: Not Progressing Goal: Patient will navigate 4-6 steps with rails/device Outcome: Not Progressing Goal: Patient will demonstrate safe mobility requirements Outcome: Not Progressing Goal: Patient will propel the wheelchair Outcome: Not Progressing Goal: Patient will ambulate Outcome: Not Progressing Goal: Patient will ambulate up and down a curb/step Outcome: Not Progressing Goal: Patient will ascend and descend four to six stairs Outcome: Not Progressing Goal: Patient will ascend and descend a flight of stairs Outcome: Not Progressing Problem: Safety Goal: Patient will adhere to precautions during ADL's and transfers Outcome: Not Progressing Goal: Patient will demonstrate safety requirements appropriate to situation/environment Outcome: Not Progressing Goal: Patient will utilize safety techniques Outcome: Not Progressing Goal: Patient locks brakes on wheelchair Outcome: Not Progressing Goal: Patient uses call light consistently to request assistance with transfers Outcome: Not Progressing Goal: Free from fall injury Outcome: Not Progressing Problem: Transfers Goal: Patient will transfer to car Outcome: Not Progressing Goal: Patient will transfer from one surface to another Outcome: Not Progressing Goal: Patient will demonstrate safe transfer techniques Outcome: Not Progressing Goal: Patient will transfer to commode Outcome: Not Progressing Goal: Patient will transfer to tub/shower Outcome: Not Progressing Goal: Patient will transfer from wheelchair to toilet Outcome: Not Progressing Goal: Transfer from bed to chair. Outcome: Not Progressing Goal: Patient to transfer to and from sit to supine Outcome: Not Progressing Goal: Patient will perform bed mobility Outcome: Not Progressing Goal: Patient will roll Outcome: Not Progressing Goal: Patient will transfer sit to and from stand Outcome: Not Progressing Goal: Patient will perform car transfer Outcome: Not Progressing Goal: Patient will perform toilet transfer Outcome: Not Progressing Goal: Patient will perform tub/shower transfer Outcome: Not Progressing Goal: Patient will follow hip precautions during transfers Outcome: Not Progressing Goal: Patient maintains weight bearing status during transfers Outcome: Not Progressing Problem: Pain Goal: Patient will manage pain with the appropriate technique/Intervention Outcome: Not Progressing Goal: Patient will demonstrate intervention for managing pain Outcome: Not Progressing Goal: Patient will reduce or eliminate use of analgesics Outcome: Not Progressing Goal: Pain is manageable through therapies Outcome: Not Progressing Goal: Patient will verbalize an acceptable level of pain Outcome: Not Progressing Goal: Patients pain is managed to allow active participation in daily activities Outcome: Not Progressing Goal: Patient will increase activity level Outcome: Not Progressing Goal: Patient verbalizes a reduction in pain level Outcome: Not Progressing Problem: Compromised Skin Integrity Goal: Patient will be free from infection Outcome: Progressing Goal: Patient will maintain/improve skin integrity through proper skin care techniques Outcome: Not Progressing Goal: Patient will demonstrate appropriate pressure relief techniques Outcome: Not Progressing Goal: Patient will demonstrate appropriate skin care techniques Outcome: Not Progressing Goal: Patient will be free from infection Outcome: Progressing Goal: Patient demonstrates skin care/treatment/dressing change Outcome: Progressing Goal: Patient will maintain good skin integrity Outcome: Not Progressing Goal: Patient exhibits signs of wound healing. Outcome: Not Progressing Goal: Patient demonstrates pressure reduction techniques Outcome: Not Progressing Goal: Patient demonstrates preventative skin care measures Outcome: Not Progressing Goal: Patient will perform skin checks daily on residual limb Outcome: Not Progressing Goal: Patient will appropriately don and doff shrinkers and prevent and skin breakdown Outcome: Not Progressing Problem: Physical Regulation:Infection Management Goal: Signs and symptoms of infection will decrease Outcome: Progressing Goal: Complications related to the disease process, condition or treatment will be avoided or minimized Outcome: Progressing Goal: Diagnostic test results will improve Outcome: Progressing Problem: Cognitive:Infection Management Goal: Knowledge of disease or condition will improve Outcome: Progressing Problem: Skin Integrity: Pressure Injury Actual or Risk of Goal: Will not develop new pressure injury Outcome: Progressing Goal: Skin integrity will improve Outcome: Progressing Goal: Risk for impaired skin integrity will decrease Outcome: Progressing Problem: Activity:Pressure Injury Actual or Risk of Goal: Mobility will improve Outcome: Progressing Problem: Nutritional:Pressure Injury Actual or Risk of Goal: Nutritional status will improve Outcome: Progressing Problem: Patient Specific Problem: Pressure Injury Actual or Risk of Goal: Patient Specific Outcome Outcome: Progressing Problem: Cognitive: Bernardo Brock Fall Risk Goal: Last Known Fall Outcome: Progressing Goal: Mobility requiring assistance of person or device Outcome: Progressing Goal: Dizziness Outcome: Progressing Goal: Medications Outcome: Progressing Goal: Mental Status/LOC/Awareness Outcome: Progressing Goal: Toileting Needs Outcome: Progressing Goal: Volume and Electrolyte Status Outcome: Progressing Goal: Communication/Sensory Outcome: Progressing Goal: Behavior Outcome: Progressing Problem: Dressings Lower Extremities Goal: Patient will complete lower body dressing Outcome: Not Progressing Problem: Transfers Goal: Patient will perform toilet transfer Outcome: Not Progressing Goals: Pt safety, pain control, monitor urine output Identify possible barriers to meeting goals/advancing plan of care: Renal Bx, HD Stability of the patient: Moderately Stable - Low risk of patient condition declining or worsening End of Shift Summary: Pt medicated at 2226 with Oxycodone 5mg for bilateral leg pain. No urine output from f/c overnight. HR 100's. NPO since MN. Bed alarm on. * Jolene Cardona RN - 07/20/2024 7:30 PM EST Goals: Identify possible barriers to meeting goals/advancing plan of care: renal biopsy Stability of the patient: Moderately Unstable - Medium risk of patient condition declining or worsening End of Shift Summary: Pt A&Ox3, cooperative with all care. C/o nausea, PRN Zofran administered with positive effect. Denies pain, SOB. VSS. Safety and comfort maintained * Lencho Stuart MD - 07/20/2024 1:57 PM EST Images from the original note were not included. SONYA PROGRESS NOTE Date: 07/20/2024 Author: Lencho Stuart MD Patient ID: Ana Contreras is a 79 y.o. female : 1945 MR#: [id number] SUBJECTIVE CC: Follow-up renal failure Seen in the morning. Pt eating breakfast. Pt denies leg pain. No sob or CP. Dr. Quiles considering renal biopsy and SNF transfer will be delayed and keep on heparin drip. ROS: No chest pain No shortness of breath No nausea or vomiting OBJECTIVE Vitals: Vitals: 07/20/24 0839 BP: (!) 126/44 Pulse: 105 Resp: 18 Temp: 36.5 ??C (97.7 ??F) SpO2: 98% Physical Exam: Gen: Awake and alert. NAD Psych: Mood stable. Pleasant. CVS: S1-S2 Pulmonary: No wheezes GI: Bowel sounds present ND NT Extremity: Mild left lower extremity swelling. No cyanosis LAB RESULTS HEMATOLOGY Lab Results Component Value Date WBC 20.9 (H) 07/20/2024 WBC 20.9 (H) 07/20/2024 HGB 7.3 (L) 07/20/2024 HGB 7.3 (L) 07/20/2024 HCT 23.6 (L) 07/20/2024 HCT 23.6 (L) 07/20/2024 MCV 77.9 (L) 07/20/2024 MCV 77.9 (L) 07/20/2024 PLT 217 07/20/2024 PLT 217 07/20/2024 CHEMISTRY Lab Results Component Value Date GLUCOSE 139 (H) 07/20/2024 NA 132 (L) 07/20/2024 K 4.2 07/20/2024 CO2 29 07/20/2024 CL 95 (L) 07/20/2024 BUN 41 (H) 07/20/2024 CREATININE 3.68 (H) 07/20/2024 EGFR 12 (L) 07/20/2024 CALCIUM 7.3 (L) 07/20/2024 MG 2.2 07/17/2024 PHOS 2.9 07/17/2024 ANIONGAP 8 07/20/2024 Current Medications: atorvastatin, 10 mg, oral, Nightly B complex-vitamin C-folic acid, 1 each, oral, Daily insulin glargine, 10 Units, subcutaneous, Nightly insulin lispro, 1-6 Units, subcutaneous, Before meals & nightly insulin lispro, 3 Units, subcutaneous, TID AC pantoprazole, 40 mg, oral, q AM AC polyetheylene glycol, 17 g, oral, Daily sodium chloride, 10 mL, intravenous, BID thiamine, 100 mg, oral, Daily PRN medications: acetaminophen, benzonatate, dextrose 50%, dextrose 50%, dextrose, dextrose, glucagon injection, heparin OR heparin, heparin OR heparin, hydrALAZINE, HYDROmorphone, naloxone, ondansetron, oxyCODONE, artificial tears, Insert peripheral IV AND Maintain IV access AND Saline lock IV AND sodium chloride AND sodium chloride, sodium chloride, sodium chloride Fluids: ASSESSMENT & PLAN 79-year-old female with PMH of DM type II, HTN, CKD stage IV, iron deficiency anemia, dyslipidemia and recent diagnosis of lung nodule (with planned bronchoscopy and EBUS) who presented to the hospital after wellness check was called to police by her daughter. Apparently she was not answering to her calls and she was found on the ground unable to get up. Mentation she was afebrile without hypoxiaand had WBC of 27K, hemoglobin 7.3 (prior hemoglobin 7.4 on 06/17/2024), RENE with BUN 63 and creatinine 4. Calcium 10.6 with corrected calcium around 12. High sensitive troponin 80, 81, CK6 149. UA had proteinuria, glucosuria, 21 RBCs, 7 WBCs and negative bacteria. EKG demonstrated sinus rhythm with first-degree AV block, RBBB and QTc 454. CT head demonstrated no acute intracranial process. CT cervical spine with no fracture chest x-ray without acute findings. Patient was started on IV fluids, admitted for further monitoring and treatment. -RENE/ATN. No renal obstruction or evidence of M spike or paraproteinemia on SPEP. RENE did not respond to IV fluids and albumin. Patient was started on hemodialysis on 07/15/2024. Renal team following and recommending renal biopsy. Therefore keep Heparin drip (hold off transition to NOAC). NPO after midnight. -Underlying CKD stage IV with prior creatinine in May around 2 -Anemia with iron deficiency. Treated with IV iron. Hg stable >7 -Left lower extremity DVT. Heparin drip. NOAC post biopsy. -Hypokalemia. Treated. -Hypercalcemia. On presentation calcium 10.6 with corrected calcium around 12. PTH low. PTH related peptide pending (as malignancy is a possibility). -Acute metabolic encephalopathy. Multifactorial and likely related to electrolyte abnormalities. Mental status back to baseline -Right upper lobe pulmonary nodules/right lung mass. Patient had CT-guided biopsy on 05/23/2024 which was nondiagnostic. She had been referred to thoracic team and plan is for endoscopy with EBUS. -Leukocytosis. She has had nonproductive cough present for several months which is likely related to her lung mass. Viral respiratory panel negative. Blood cultures and urine cultures without growth. CT chest with no evidence of infiltrates or obvious source. Leukocytosis could be reactive and/or malignancy related. -Traumatic rhabdomyolysis. Resolved. -Mildly elevated TSH. With normal FT4 and slightly low FT3. Recommend reevaluation with thyroid studies after 4 weeks No indication for thyroid replacement presently. -DM type II with neuropathy Oral hypoglycemic medications including metformin had been discontinued due to renal dysfunction. Currently on Lantus 10 units at bedtime and POC/SSI -Dyslipidemia. On statin -HTN. Lisinopril had been discontinued on admission due to RENE. DVT prophylaxis: Heparin CODE STATUS: Full code Disposition. Needs SNF. Barrier: renal biopsy, pending SNF bed. HCP: DaughterDennise. [phone] * Miguel Quiles MD - 07/20/2024 12:09 PM EST Images from the original note were not included. Progress Note CHIEF COMPLAINT F/u SUBJECTIVE Patient seen and examined D/w medical attending MEDICAL HISTORY Past Medical History: Diagnosis Date Anemia Arthritis Blindness Decreased vision 11/29/2014 DX:Decreased vision Diabetes mellitus, type 2 (CMS/HCC) 02/14/2014 DX:Diabetes mellitus, type 2 (HCC) DVT, lower extremity (CMS/HCC) LEFT LEG Family history of early CAD 03/01/2014 DX:Family history of early CAD Family history of factor V Leiden mutation 12/12/2015 DX:Family history of factor V Leiden mutation History of renal dialysis CURRENT VIA [facility] (hearing loss) Hyperlipidemia 02/14/2014 DX:Hyperlipidemia Hypertension 02/14/2014 DX:Hypertension Joint pain Lung nodule Microalbuminuria 09/22/2016 DX:Microalbuminuria Osteoporosis 02/14/2014 DX:Osteoporosis MEDICATIONS apixaban, 10 mg, oral, BID atorvastatin, 10 mg, oral, Nightly B complex-vitamin C-folic acid, 1 each, oral, Daily insulin glargine, 10 Units, subcutaneous, Nightly insulin lispro, 1-6 Units, subcutaneous, Before meals & nightly insulin lispro, 3 Units, subcutaneous, TID AC pantoprazole, 40 mg, oral, q AM AC polyetheylene glycol, 17 g, oral, Daily sodium chloride, 10 mL, intravenous, BID thiamine, 100 mg, oral, Daily PRN medications: acetaminophen, benzonatate, dextrose 50%, dextrose 50%, dextrose, dextrose, glucagon injection, heparin OR heparin, hydrALAZINE, HYDROmorphone, naloxone, ondansetron, oxyCODONE, artificial tears, Insert peripheral IV AND Maintain IV access AND Saline lock IV AND sodium chloride AND sodium chloride, sodium chloride, sodium chloride OBJECTIVE Vital signs in last 24 hours: Visit Vitals BP (!) 126/44 (BP Location: Left arm, Patient Position: Sitting) Pulse 105 Temp 36.5 ??C (97.7 ??F) (Temporal) Resp 18 Intake/Output last 24 hours: Intake/Output Summary (Last 24 hours) at 07/20/2024 1209 Last data filed at 07/19/20242029 Gross per 24 hour Intake 1166.01 ml Output -- Net 1166.01 ml Weights: Admission Weight: Weight: 72.6 kg (160 lb) Wt Readings from Last 3 Encounters: 07/18/24 81.7 kg (180 lb 1.6 oz) 06/17/24 76.2 kg (168 lb) 06/13/24 76.5 kg (168 lb 9.6 oz) Physical Exam: General: No acute distress HEENT: Normocephalic, atraumatic, anicteric Cardiovascular: S1 S2 normal Respiratory: unlabored Gl: soft non-distended Extremities: No cyanosis Neurological: Alert Integumentary: no rash Psych: Calm, cooperative LABS Results from last 7 days Lab Units 07/20/24 0546 07/19/24 1431 07/19/24 0755 07/18/24 0607 WBC AUTO K/mcL 20.9* 20.9* -- 25.0* 25.5* HEMOGLOBIN g/dL 7.3* 7.3* 7.6* 7.0* 7.8* HEMATOCRIT % 23.6* 23.6* 23.8* 22.2* 24.9* MCV FL 77.9* 77.9* -- 79.0 77.6* PLATELETS K/mcL 217 217 -- 218 242 Results from last 7 days Lab Units 07/20/24 0546 07/19/24 0652 07/18/24 0607 CREATININE mg/dL 3.68* 5.96* 4.92* BUN mg/dL 41* 83* 67* SODIUM mmol/L 132* 128* 132* POTASSIUM mmol/L 4.2 4.9 4.4 CHLORIDE mmol/L 95* 93* 95* CO2 mmol/L 29 28 27 Phosphorus Date Value Ref Range Status 07/17/2024 2.9 2.5 - 4.5 mg/dL Final 07/15/2024 4.2 2.5 - 4.5 mg/dL Final 07/13/2024 3.0 2.5 - 4.5 mg/dL Final PTH Date Value Ref Range Status 07/10/2024 10.5 (L) 18.5 - 88.0 pcg/mL Final 07/08/2024 6.5 (L) 18.5 - 88.0 pcg/mL Final Iron Date Value Ref Range Status 07/08/2024 20 (L) 40 - 150 mcg/dL Final Comment: Hemolysis present 05/31/2024 14 (L) 40 - 150 mcg/dL Final TIBC Date Value Ref Range Status 07/08/2024 186 (L) 250 - 450 mcg/dL Final 05/31/2024 278 250 - 450 mcg/dL Final Ferritin Date Value Ref Range Status 07/08/2024 708 (H) 8 - 252 ng/mL Final 05/31/2024 294 (H) 8 - 252 ng/mL Final No results found for: COLORUA , CLARITYUA , SPECGRAVUA , PHUA , PROTUA , GLUCOSEUA , KETONESUA , BILIRUBINUA , BLOODUA , UROBILINOGUA , NITRITEUA IMPRESSION and PLAN RENE Anemia CKD 3 S/p HD yesterday Significant proteinuria MAC 3.6 mg/g RENE most likely due to acute tubular injury But need to rule out other need kidney biopsy No obstruction by renal US No evidence for paraproteinemia Negative hepatitis B surface Ag Low C3 Normal C4 No M spike on SPEP ANCA titer ordered Scr ~ 1.13 mg/dl on 01/24 Nephrogenic anemia Iron deficiency REC Will arrange for kidney biopsy HD tomorrow Hold apixaban C/w heparin Keep NPO after midnight Renal diet IV iron Transfuse for Hb < 7 Outpatient HD being arranged (placed request to regional HD placement) Referral to [facility] made as patient lives in the area Miguel Quiles MD * Tarsha Corea RN - 07/20/2024 11:54 AM EST DANITZA: 07/22 Barriers: ? Renal Bx, new HD, trend labs, H/H, no accepting STR. Plan: STR * Nithya Constantino PT - 07/20/2024 11:30 AM EST Patient: Ana Contreras Age: 79 y.o. Sex: female Acute encephalopathy [facility] Physical Therapy Treatment Ambulation: Walking Assistance: Moderate assistance Device: Rolling walker Distance Ambulated (ft): 2 PLOF: Level of [place]: Independent with mobility and functional transfers Lives With: Alone Type of Home: House Home Adaptive Equipment: Cane, Rollator Home Layout: One level Home Access: Stairs to enter without rails DME Needs: r.walker PT Discharge Recommendation: Reason for current recommendation based on assessment: Based on present level of mobility, pt is below baseline for functioning, is at a high risk for falls and is unable to safely ambulate a household distance at this time. Pt would benefit from the most intensive level of post-acute rehab for best functional outcome. SUBJECTIVE RN approved pt. for PT visit at this time. Pt. was educated on the PT role, understood the benefitsof working with PT, and was agreeable. 07/20/24 1130 PT Last Visit PT Received On 07/20/24 General Family/Caregiver Present No PT Time Calculation PT Start Time 1130 PT Stop Time 1210 PT Time Calculation (min) 40 min Precautions Medical Precautions Fall Risk Safety Interventions Call chavarria within reach RUE Weight Bearing Status Full LUE Weight Bearing Status Full RLE Weight Bearing Status Full LLE Weight Bearing Status Full Oxygen Therapy Oxygen Therapy None (Room air) O2 Delivery Method Nasal cannula Pain Assessment Pain Assessment No/denies pain Cognition Following Commands Follows one step commands with increased time Activity Tolerance Endurance Tolerates 20 - 30 min activity with multiple rests Static Sitting Balance Static Sitting-Level of Assistance Standby assistance Dynamic Sitting Balance Dynamic Sitting-Level of Assistance Contact guard Static Standing Balance Static Standing-Level of Assistance Moderate assistance Dynamic Standing Balance Dynamic Standing-Level of Assistance Moderate assistance Bed Mobility Sitting to Lying Assistance Moderate assistance Lying to Sitting Assistance Moderate assistance Transfers Sit to Stand Assistance Moderate assistance Ambulation Walking Assistance Moderate assistance Device Rolling walker Distance Ambulated (ft) 2 Stairs Stairs Assistance Not attempted, medical/safety concerns Procedures Procedures Therapeutic Activity Therapeutic Activity Therapeutic Activity Time Entry 40 Therapeutic Activity 1 bed mobiltiy: pt supine at outset of visit; moved supine -sitting with mod assist with upper body and vcs ; she scoots to EOB with mod assist,and sat, supported with focus on balance/ postural control. (when pt became fatigued, during standing /stepping activities, she sat down, mod assist and moved sitting to supine with mod assist with ble's) Therapeutic Activity 2 sit-stand transfers at [facility], mod assist to adjust posture, hand and foot posture, and to facilitate forward trunk over ISABELLE. Pt stood, supported at [facility] with mod assist, limited by ble weakness, fatigue and fear of falling. Therapeutic Activity 3 limited weight shfiting and stepping with mod assist, but pt hand difficultyunweighing either foot, and with progressive decrease in balance and fatigue; PT Assessment PT Assessment Results Decreased strength;Decreased endurance;Impaired balance;Impaired gait;Decreased mobility;Decreased coordination;Impaired vision Prognosis Good Evaluation/Treatment Tolerance Patient limited by fatigue Medical Staff Made Aware Yes Plan PT Discharge Recommendations Inpatient rehab facility placement Equipment Recommended niharika PLAN Acute Care Plan: Treatment/Interventions: Gait training, Endurance training, ADL retraining, LE strengthening/ROM PT Plan: Skilled PT PT Frequency: 2-5 days per week PT Discharge Recommendations: Inpatient rehab facility placement Equipment Recommended: niharika Time Spent: PT Time Calculation PT Start Time: 1130 PT Stop Time: 1210 PT Time Calculation (min): 40 min Time Entry: PT Therapeutic Procedures Time Entry Therapeutic Activity Time Entry: 40 EDUCATION Education Documentation Teach proper use of assistive devices, taught by Nithya Constantino PT at 07/20/2024 1:24 PM. Learner: Patient Readiness: Acceptance Method: Explanation Response: Verbalizes Understanding Comment: pt advised to use call chavarria for all needs Education Comments No comments found. * Katina Machuca RN - 07/20/2024 2:22 AM EST Problem: Falls: Fall Risk (Adult IP BH) Goal: (Goal) Patient will experience maximum safety and reduce risk for falls. Outcome: Progressing Problem: Pain Goal: Patient will manage pain with the appropriate technique/Intervention Outcome: Progressing Problem: Pain Goal: Patient will verbalize an acceptable level of pain Outcome: Progressing Goals: Identify possible barriers to meeting goals/advancing plan of care: await final plans re to snf placement w out hd. ?bx Stability of the patient: Moderately Unstable - Medium risk of patient condition declining or worsening End of Shift Summary: stable overnight. P trends up after HD 110's little to no u/o * Stacie Cuevas - 07/19/2024 2:34 PM EST IMM given to pt to sing at bedside @12:44pm, copy given to pt, copy fax over to MR and other copy added to pt chart. * Lencho Stuart MD - 07/19/2024 1:49 PM EST Images from the original note were not included. SONYA PROGRESS NOTE Date: 07/19/2024 Author: Lencho Stuart MD Patient ID: Ana Contreras is a 79 y.o. female : 1945 MR#: [id number] SUBJECTIVE CC: Follow-up RENE, DVT and encephalopathy During hemodialysis. Reports left lower extremity pain which was better after Tylenol. No other complaints Hemoglobin noted to be down at 7. Denies any overt bleeding ROS: No fever No nausea No dizziness OBJECTIVE Vitals: Vitals: 07/19/24 1131 BP: (!) 141/60 Pulse: 101 Resp: 16 Temp: 36.3 ??C (97.3 ??F) SpO2: 98% Physical Exam: CVS: S1-S2 Pulmonary: No wheezes anterolaterally GI: Bowel sounds present ND NT Extremity: Mild left lower extremity swelling. No skin changes or cyanosis General: Awake and alert, watching TV and appears comfortable LAB RESULTS HEMATOLOGY Lab Results Component Value Date WBC 25.0 (H) 07/19/2024 HGB 7.0 (L) 07/19/2024 HCT 22.2 (L) 07/19/2024 MCV 79.0 07/19/2024 PLT 218 07/19/2024 CHEMISTRY Lab Results Component Value Date GLUCOSE 132 (H) 07/19/2024 NA 128 (L) 07/19/2024 K 4.9 07/19/2024 CO2 28 07/19/2024 CL 93 (L) 07/19/2024 BUN 83 (H) 07/19/2024 CREATININE 5.96 (H) 07/19/2024 EGFR 7 (L) 07/19/2024 CALCIUM 7.7 (L) 07/19/2024 MG 2.2 07/17/2024 PHOS 2.9 07/17/2024 ANIONGAP 7 07/19/2024 Current Medications: atorvastatin, 10 mg, oral, Nightly B complex-vitamin C-folic acid, 1 each, oral, Daily insulin glargine, 10 Units, subcutaneous, Nightly insulin lispro, 1-6 Units, subcutaneous, Before meals & nightly insulin lispro, 3 Units, subcutaneous, TID AC pantoprazole, 40 mg, oral, q AM AC polyetheylene glycol, 17 g, oral, Daily sodium chloride, 10 mL, intravenous, BID thiamine, 100 mg, oral, Daily heparin, 18 Units/kg/hr, Last Rate: 28 Units/kg/hr (07/19/24 0910) PRN medications: acetaminophen, benzonatate, dextrose 50%, dextrose 50%, dextrose, dextrose, glucagon injection, heparin OR heparin, hydrALAZINE, HYDROmorphone, naloxone, ondansetron, oxyCODONE, artificial tears, Insert peripheral IV AND Maintain IV access AND Saline lock IV AND sodium chloride AND sodium chloride, sodium chloride, sodium chloride Fluids: heparin, 18 Units/kg/hr, Last Rate: 28 Units/kg/hr (07/19/24 0910) ASSESSMENT & PLAN 79-year-old female with PMH of DM type II, HTN, CKD stage IV, iron deficiency anemia, dyslipidemia and recent diagnosis of lung nodule (with planned bronchoscopy and EBUS) who presented to the hospital after wellness check was called to police by her daughter. Apparently she was not answering to her calls and she was found on the ground unable to get up. Mentation she was afebrile without hypoxiaand had WBC of 27K, hemoglobin 7.3 (prior hemoglobin 7.4 on 06/17/2024), RENE with BUN 63 and creatinine 4. Calcium 10.6 with corrected calcium around 12. High sensitive troponin 80, 81, CK6 149. UA had proteinuria, glucosuria, 21 RBCs, 7 WBCs and negative bacteria. EKG demonstrated sinus rhythm with first-degree AV block, RBBB and QTc 454. CT head demonstrated no acute intracranial process. CT cervical spine with no fracture chest x-ray without acute findings. Patient was started on IV fluids, admitted for further monitoring and treatment. -RENE/ATN. No renal obstruction or evidence of M spike or paraproteinemia on SPEP. RENE did not respond to IV fluids and albumin. Patient was started on hemodialysis on 07/15/2024. -Underlying CKD stage IV with prior creatinine in May around 2 -Anemia with iron deficiency. Treated with IV iron. Hg slowly trended down. At 7 today. Recheck Hg this afternoon. If < 7 may need transfusion. -Left lower extremity DVT. She was found to have distal occlusive DVT in left lower extremity. Risks and benefits of anticoagulation discussed especially given significant anemia and risk of bleeding. Continue heparin drip. Hg will be repeated today and in am. -Hypokalemia. Treated. -Hypercalcemia. On presentation calcium 10.6 with corrected calcium around 12. Improved with IV fluids. Calcium supplements on hold. PTH low. PTH related peptide pending (as malignancy is a possibility). -Acute metabolic encephalopathy. Multifactorial and likely related to electrolyte abnormalities. Mental status back to baseline -Right upper lobe pulmonary nodules/right lung mass. Patient had CT-guided biopsy on 05/23/2024 which was nondiagnostic. She had been referred to thoracic team and plan is for endoscopy with EBUS. -Leukocytosis. She has had nonproductive cough present for several months which is likely related to her lung mass. Viral respiratory panel negative. Blood cultures and urine cultures without growth. CT chest with no evidence of infiltrates or obvious source. Leukocytosis could be reactive and/or malignancy related. -Traumatic rhabdomyolysis. Resolved. -Mildly elevated TSH. With normal FT4 and slightly low FT3. Recommend reevaluation with thyroid studies after 4 weeks -DM type II with neuropathy Oral hypoglycemic medications including metformin had been discontinued due to renal dysfunction. Currently on Lantus 10 units at bedtime and POC/SSI -Dyslipidemia. On statin -HTN. Lisinopril had been discontinued on admission due to RENE. DVT prophylaxis: Heparin CODE STATUS: Full code Disposition. Likely transition to SNF over the next 1-2 days. Barrier: Heparin, anemia HCP: Daughter, Dennise. [phone] * Jose Lujan RN - 07/19/2024 11:20 AM EST 07/19/24 1110 Vital Signs Temp 36.6 ??C (97.9 ??F) Temp Source Temporal Heart Rate 101 Heart Rate Source Monitor Resp 16 BP (!) 145/68 MAP (Calculated) 94 mm Hg BP Method Automatic BP Location Left arm;Upper Patient Position Lying SpO2 99 % Post-Hemodialysis Assessment Rinseback Volume (mL) 150 mL Total Liters Processed (L/min) 84.5 L/min Dialyzer Clearance Clear Duration of Treatment (minutes) 210 minutes Hemodialysis Output (mL) 2000 mL Patient Response to Treatment/Comments Pt offered complaints of MARTINEZ in the middle of tx and leg paintowards the end of tx. 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 Pt's floorRN aware of leg pain and will medicate pt upon arrival to pt's . Pt offered no other complaints to tx. Post HD. 3.5 hours completed. 2L removed. See comment. * Miguel Quiles MD - 07/19/2024 10:30 AM EST Images from the original note were not included. Progress Note CHIEF COMPLAINT F/u SUBJECTIVE Patient seen and examined on HD MEDICAL HISTORY Past Medical History: Diagnosis Date Anemia Arthritis Blindness Decreased vision 11/29/2014 DX:Decreased vision Diabetes mellitus, type 2 (CMS/HCC) 02/14/2014 DX:Diabetes mellitus, type 2 (HCC) DVT, lower extremity (CMS/HCC) LEFT LEG Family history of early CAD 03/01/2014 DX:Family history of early CAD Family history of factor V Leiden mutation 12/12/2015 DX:Family history of factor V Leiden mutation History of renal dialysis CURRENT VIA [facility] (hearing loss) Hyperlipidemia 02/14/2014 DX:Hyperlipidemia Hypertension 02/14/2014 DX:Hypertension Joint pain Lung nodule Microalbuminuria 09/22/2016 DX:Microalbuminuria Osteoporosis 02/14/2014 DX:Osteoporosis MEDICATIONS atorvastatin, 10 mg, oral, Nightly B complex-vitamin C-folic acid, 1 each, oral, Daily insulin glargine, 10 Units, subcutaneous, Nightly insulin lispro, 1-6 Units, subcutaneous, Before meals & nightly insulin lispro, 3 Units, subcutaneous, TID AC pantoprazole, 40 mg, oral, q AM AC polyetheylene glycol, 17 g, oral, Daily sodium chloride, 10 mL, intravenous, BID thiamine, 100 mg, oral, Daily PRN medications: acetaminophen, benzonatate, dextrose 50%, dextrose 50%, dextrose, dextrose, glucagon injection, heparin OR heparin, hydrALAZINE, HYDROmorphone, naloxone, ondansetron, oxyCODONE, artificial tears, Insert peripheral IV AND Maintain IV access AND Saline lock IV AND sodium chloride AND sodium chloride, sodium chloride, sodium chloride heparin, 18 Units/kg/hr, Last Rate: 28 Units/kg/hr (07/19/24 0910) OBJECTIVE Vital signs in last 24 hours: Visit Vitals BP 129/60 Pulse 86 Temp 36.7 ??C (98.1 ??F) (Temporal) Resp 16 Intake/Output last 24 hours: Intake/Output Summary (Last 24 hours) at 07/19/2024 1030 Last data filed at 07/19/2024 1000 Gross per 24 hour Intake 120 ml Output 50 ml Net 70 ml Weights: Admission Weight: Weight: 72.6 kg (160 lb) Wt Readings from Last 3 Encounters: 07/18/24 81.7 kg (180 lb 1.6 oz) 06/17/24 76.2 kg (168 lb) 12/16/24 76.5 kg (168 lb 9.6 oz) Physical Exam: General: No acute distress HEENT: Normocephalic, atraumatic, anicteric Cardiovascular: S1 S2 normal Respiratory: unlabored Gl: soft non-distended Extremities: No cyanosis Neurological: Alert Integumentary: no rash Psych: Calm, cooperative LABS Results from last 7 days Lab Units 07/19/24 0755 07/18/24 0607 07/17/24 0630 WBC AUTO K/mcL 25.0* 25.5* 23.0* 23.0* HEMOGLOBIN g/dL 7.0* 7.8* 8.0* 8.0* HEMATOCRIT % 22.2* 24.9* 25.6* 25.6* MCV FL 79.0 77.6* 78.5* 78.5* PLATELETS K/mcL 218 242 252 252 Results from last 7 days Lab Units 07/19/24 0652 07/18/24 0607 07/17/24 0630 CREATININE mg/dL 5.96* 4.92* 4.03* BUN mg/dL 83* 67* 53* SODIUM mmol/L 128* 132* 133 POTASSIUM mmol/L 4.9 4.4 3.8 CHLORIDE mmol/L 93* 95* 96 CO2 mmol/L 28 27 26 Phosphorus Date Value Ref Range Status 07/17/2024 2.9 2.5 - 4.5 mg/dL Final 07/15/2024 4.2 2.5 - 4.5 mg/dL Final 07/13/2024 3.0 2.5 - 4.5 mg/dL Final PTH Date Value Ref Range Status 07/10/2024 10.5 (L) 18.5 - 88.0 pcg/mL Final 07/08/2024 6.5 (L) 18.5 - 88.0 pcg/mL Final Iron Date Value Ref Range Status 07/08/2024 20 (L) 40 - 150 mcg/dL Final Comment: Hemolysis present 05/31/2024 14 (L) 40 - 150 mcg/dL Final TIBC Date Value Ref Range Status 07/08/2024 186 (L) 250 - 450 mcg/dL Final 05/31/2024 278 250 - 450 mcg/dL Final Ferritin Date Value Ref Range Status 07/08/2024 708 (H) 8 - 252 ng/mL Final 05/31/2024 294 (H) 8 - 252 ng/mL Final No results found for: COLORUA , CLARITYUA , SPECGRAVUA , PHUA , PROTUA , GLUCOSEUA , KETONESUA , BILIRUBINUA , BLOODUA , UROBILINOGUA , NITRITEUA IMPRESSION and PLAN RENE Hyponatremia Anemia CKD 3 RENE most likely due to acute tubular injury But need to rule out other May need kidney biopsy No obstruction by renal US No evidence for paraproteinemia Negative hepatitis B surface Ag Low C3 Normal C4 No M spike on SPEP Scr ~ 1.13 mg/dl on 01/24 Nephrogenic anemia Iron deficiency REC HD today UF as tolerated UPCR ANCA titer Renal diet IV iron Transfuse for Hb < 7 Outpatient HD being arranged (placed request to regional HD placement) Referral to [facility] made as patient lives in the area Miguel Quiles MD * Nelli Schmidt OT - 07/19/2024 9:15 AM EST Therapy session was attempted for Ana Contreras by Nelli Schmidt OT on 07/19/2024. The patient was unable to be seen for the following reason(s): Out of room at a medical procedure Plan for return visit: As soon as possible * Katina Machuca RN - 07/19/2024 2:46 AM EST Problem: Falls: Fall Risk (Adult IP ) Goal: (Goal) Patient will experience maximum safety and reduce risk for falls. 07/19/2024 0246 by Katina Torres RN Outcome: Adequate for Discharge 07/19/2024 0243 by Katina Torres RN Outcome: Progressing 07/19/2024 0242 by Katina Torres RN Outcome: Progressing 07/19/2024 0238 by Katina Torres RN Outcome: Progressing Goal: Patient will not fall or injure themselves during hospitalization. 07/19/2024 0246 by Katina Torres RN Outcome: Adequate for Discharge 07/19/2024 0243 by Katina Torres RN Outcome: Progressing 07/19/2024 0242 by Katina S, RN Outcome: Progressing 07/19/2024 0238 by Katina Torres RN Outcome: Progressing Problem: Balance Goal: Patient will demonstrate Intervention to enhance balance for safe completion of daily activities 07/19/2024 0246 by Katina Torres RN Outcome: Adequate for Discharge 07/19/2024 0242 by Katina Torres RN Outcome: Progressing 07/19/2024 0238 by Katina Torres RN Outcome: Not Progressing Goal: Patient will maintain balance 07/19/2024 0246 by Katina Torres RN Outcome: Adequate for Discharge 07/19/2024 0242 by Katina Torres RN Outcome: Progressing 07/19/2024 0238 by Katina Torres RN Outcome: Not Progressing Goal: Patient will maintain balance to allow for safe mobility 07/19/2024 0246 by aKtina Torres RN Outcome: Adequate for Discharge 07/19/2024 024 by Katina Torres RN Outcome: Progressing 07/19/2024 0238 by Katina Torres RN Outcome: Progressing Goal: Patient will maintain standing and sitting balance to allow for completion of daily activities 07/19/2024 0246 by Katina Torres RN Outcome: Adequate for Discharge 07/19/2024 0242 by Katina Torres RN Outcome: Not Progressing 07/19/2024 0238 by Katina Torres RN Outcome: Not Progressing Goal: Patient will tolerate standing 07/19/2024 0246 by Katina Torres RN Outcome: Adequate for Discharge 07/19/2024 0242 by Katina Torres RN Outcome: Progressing 07/19/2024 0238 by Katina Torres RN Outcome: Progressing Goal: Maintains dynamic standing balance with upper extremity support 07/19/2024 0246 by Katina Torres RN Outcome: Adequate for Discharge 07/19/2024 0242 by Katina Torres RN Outcome: Progressing 07/19/2024 0238 by Katina Torres RN Outcome: Not Progressing Goal: Maintains dynamic standing balance without upper extremity support 07/19/2024 0246 by Katina Torres RN Outcome: Adequate for Discharge 07/19/2024 0242 by Katina Torres RN Outcome: Not Progressing Goal: Maintains static standing balance with upper extremity support 07/19/2024 0246 by Katina Torres RN Outcome: Adequate for Discharge 07/19/2024 0242 by Katina Torres RN Outcome: Progressing Goal: Maintains static standing balance without upper extremity support 07/19/2024 024 by Katina Torres RN Outcome: Adequate for Discharge 07/19/2024241 by Katina Torres RN Outcome: Not Progressing Goal: Maintains static sitting balance with upper extremity support 07/19/2024 024 by Katina Torres RN Outcome: Adequate for Discharge 07/19/2024 024 by Katina Torres RN Outcome: Progressing Goal: Maintains static sitting balance without upper extremity support 07/19/2024 024 by Katina Torres RN Outcome: Adequate for Discharge 07/19/2024 024 by Katina Torres RN Outcome: Progressing Goal: Maintains dynamic sitting balance with upper extremity support 07/19/2024 024 by Katina Torres RN Outcome: Adequate for Discharge 07/19/2024241 by Katina Torres RN Outcome: Progressing Goal: Maintains dynamic sitting balance without upper extremity support 07/19/2024 024 by Katina Torres RN Outcome: Adequate for Discharge 07/19/2024241 by Katina Torres RN Outcome: Not Progressing 07/19/2024 0238 by Katina Torres RN Outcome: Progressing Problem: Mobility Goal: Patient will be able to go up and down a curb/step with the appropriate device 07/19/2024245 by Katina Torres RN Outcome: Adequate for Discharge 07/19/2024241 by Katina Torres RN Outcome: Not Progressing 07/19/2024 0238 by Katina Torres RN Outcome: Not Progressing Goal: Patient will propel wheelchair household/community distances 07/19/2024 024 by Katina Torres RN Outcome: Adequate for Discharge 07/19/2024241 by Katina Torres RN Outcome: Not Progressing 07/19/2024 0238 by Katina Torres RN Outcome: Adequate for Discharge Goal: Patient will demonstrate kitchen mobility 07/19/2024 024 by Katina Torres RN Outcome: Adequate for Discharge 07/19/2024241 by Katina Torres RN Outcome: Not Progressing 07/19/2024 0238 by Katina Torres RN Outcome: Not Progressing Goal: Patient will recall and demonstrate 3 out of 3 total hip precautions during mobility 07/19/2024245 by Katina Torres RN Outcome: Adequate for Discharge 07/19/2024 0242 by Katina Torres RN Outcome: Not Progressing Goal: Patient will ambulate community distance 07/19/2024 0246 by Katina Torres RN Outcome: Adequate for Discharge 07/19/2024 0242 by Katina Torres RN Outcome: Not Progressing 07/19/2024 0238 by Katina Torres RN Outcome: Not Progressing Goal: Patient will propel wheelchair household distances 07/19/2024 0246 by Katina Torres RN Outcome: Adequate for Discharge 07/19/2024 0242 by Katina Torres RN Outcome: Not Progressing 07/19/2024 0238 by Katina Torres RN Outcome: Not Progressing Goal: Patient will ambulate household distance 07/19/2024 0246 by Katina Torres RN Outcome: Adequate for Discharge 07/19/2024 0242 by Katina Torres RN Outcome: Not Progressing 07/19/2024 0238 by Katina Torres RN Outcome: Not Progressing Goal: Patient will navigate 4-6 steps with rails/device 07/19/2024 0246 by Katina Torres RN Outcome: Adequate for Discharge 07/19/2024 0242 by Katina Torres RN Outcome: Not Progressing 07/19/2024 0238 by Katina Torres RN Outcome: Not Progressing Goal: Patient will demonstrate safe mobility requirements 07/19/2024 0246 by Katina Torres RN Outcome: Adequate for Discharge 07/19/2024 0242 by Katina Torres RN Outcome: Not Progressing 07/19/2024 0238 by Katina Torres RN Outcome: Progressing Goal: Patient will propel the wheelchair 07/19/2024 0246 by Katina Torres RN Outcome: Adequate for Discharge 07/19/2024 0242 by Katina Torres RN Outcome: Not Progressing 07/19/2024 0238 by Katina Torres RN Outcome: Not Progressing Goal: Patient will ambulate 07/19/2024 0246 by Katnia Torres RN Outcome: Adequate for Discharge 07/19/2024 0242 by Katina Torres RN Outcome: Not Progressing 07/19/2024 0238 by Katina Torres RN Outcome: Not Progressing Goal: Patient will ambulate up and down a curb/step 07/19/2024 0246 by Katina Torres RN Outcome: Adequate for Discharge 07/19/2024 0242 by Katina Torres RN Outcome: Not Progressing 07/19/2024 0238 by Katina Torres RN Outcome: Not Progressing Goal: Patient will ascend and descend four to six stairs 07/19/2024 0246 by Katina Torres RN Outcome: Adequate for Discharge 07/19/2024 0242 by Katina Torres RN Outcome: Not Progressing 07/19/2024 0238 by Katina Torres RN Outcome: Not Progressing Goal: Patient will ascend and descend a flight of stairs 07/19/2024 0246 by Katina Torres RN Outcome: Adequate for Discharge 07/19/2024 0242 by Katina Torres RN Outcome: Not Progressing 07/19/2024 0238 by Katina Torres RN Outcome: Not Progressing Problem: Safety Goal: Patient will adhere to precautions during ADL's and transfers 07/19/2024 0246 by Katina Torres RN Outcome: Adequate for Discharge 07/19/2024 0243 by Katina Torres RN Outcome: Progressing 07/19/2024 0242 by Katina Torres RN Outcome: Progressing 07/19/2024 0238 by Katina Torres RN Outcome: Progressing Goal: Patient will demonstrate safety requirements appropriate to situation/environment 07/19/2024 0246 by Katina Torres RN Outcome: Adequate for Discharge 07/19/2024 0243 by Katina Torres RN Outcome: Progressing 07/19/2024 0242 by Katina Torres RN Outcome: Progressing 07/19/2024 0238 by Katina Torres RN Outcome: Progressing Goal: Patient will utilize safety techniques 07/19/2024 0246 by Katina Torres RN Outcome: Adequate for Discharge 07/19/2024 0243 by Katina Torrse RN Outcome: Progressing 07/19/2024 0242 by Katina Torres RN Outcome: Progressing 07/19/2024 0238 by Katina Torres RN Outcome: Progressing Goal: Patient locks brakes on wheelchair 07/19/2024 0246 by Katina Torres RN Outcome: Adequate for Discharge 07/19/2024 0243 by Katina Torrse RN Outcome: Not Progressing 07/19/2024 0242 by Katina Torres RN Outcome: Progressing 07/19/2024 0238 by Katina Torres RN Outcome: Not Progressing Goal: Patient uses call light consistently to request assistance with transfers 07/19/2024 0246 by Katina Torres RN Outcome: Adequate for Discharge 07/19/2024 0243 by Katina Torres RN Outcome: Progressing 07/19/2024 0242 by Katina Torres RN Outcome: Progressing 07/19/2024 0238 by Katina Torres RN Outcome: Progressing Goal: Free from fall injury 07/19/2024 0246 by Katina Torres RN Outcome: Adequate for Discharge 07/19/2024 0243 by Katina Torres RN Outcome: Progressing 07/19/2024 0242 by Katina Torres RN Outcome: Progressing 07/19/2024 0238 by Katina Torres RN Outcome: Progressing Problem: Transfers Goal: Patient will transfer to car 07/19/2024 0246 by Katina Torres RN Outcome: Adequate for Discharge 07/19/2024 0242 by Katina Torres RN Outcome: Not Progressing 07/19/2024 0238 by Katina Torres RN Outcome: Not Progressing Goal: Patient will transfer from one surface to another 07/19/2024 0246 by Katina Torres RN Outcome: Adequate for Discharge 07/19/2024 0242 by Katina Torres RN Outcome: Not Progressing 07/19/2024 0238 by Katina Torres RN Outcome: Not Progressing Goal: Patient will demonstrate safe transfer techniques 07/19/2024 0246 by Katina Torres, RN Outcome: Adequate for Discharge 07/19/2024 0242 by Katina Torres RN Outcome: Progressing 07/19/2024 0238 by Katina Torres RN Outcome: Progressing Goal: Patient will transfer to commode 07/19/2024 0246 by Katina Torres, RN Outcome: Adequate for Discharge 07/19/2024 0243 by Katina Torres RN Outcome: Not Progressing 07/19/2024 0242 by Katina Torres, RN Outcome: Not Progressing 07/19/2024 0238 by Katina Torres RN Outcome: Not Progressing Goal: Patient will transfer to tub/shower 07/19/2024 0246 by Katina Torres RN Outcome: Adequate for Discharge 07/19/2024 0243 by Katina Torres RN Outcome: Not Progressing 07/19/2024 0242 by Katina Torers RN Outcome: Not Progressing 07/19/2024 0238 by Katina Torres RN Outcome: Not Progressing Goal: Patient will transfer from wheelchair to toilet 07/19/2024 0246 by Katina Torres RN Outcome: Adequate for Discharge 07/19/2024 0243 by Katina Torres RN Outcome: Not Progressing 07/19/2024 0242 by Katina Torres RN Outcome: Not Progressing 07/19/2024 0238 by Katina Torres RN Outcome: Not Progressing Goal: Transfer from bed to chair. 07/19/2024 0246 by Katina Torres RN Outcome: Adequate for Discharge 07/19/2024 0243 by Katina Torres RN Outcome: Progressing 07/19/2024 0242 by Katina Torres RN Outcome: Progressing 07/19/2024 0238 by Katina Torres RN Outcome: Progressing Goal: Patient to transfer to and from sit to supine 07/19/2024 0246 by Katina Torres RN Outcome: Adequate for Discharge 07/19/2024 024 by Katina Torres RN Outcome: Progressing 07/19/2024 0238 by Katina Torres RN Outcome: Progressing Goal: Patient will perform bed mobility 07/19/2024 0246 by Katina Torres RN Outcome: Adequate for Discharge 07/19/2024 024 by Katina Torres RN Outcome: Progressing Goal: Patient will roll 07/19/2024 0246 by Katina Torres RN Outcome: Adequate for Discharge 07/19/2024 024 by Katina Torres RN Outcome: Progressing 07/19/2024 0242 by Katina Torres RN Outcome: Progressing 07/19/2024 0238 by Katina Torres RN Outcome: Progressing Goal: Patient will transfer sit to and from stand 07/19/2024 0246 by Katina Torres RN Outcome: Adequate for Discharge 07/19/2024 0242 by Katina Torres RN Outcome: Progressing Goal: Patient will perform car transfer 07/19/2024 0246 by Katina Torres RN Outcome: Adequate for Discharge 07/19/2024 0242 by Katina Torres RN Outcome: Progressing Goal: Patient will perform toilet transfer 07/19/2024 0246 by Katina Torres RN Outcome: Adequate for Discharge 07/19/2024 024 by Katina Torres RN Outcome: Progressing Goal: Patient will perform tub/shower transfer 07/19/2024 024 by Katina Torres RN Outcome: Adequate for Discharge 07/19/2024 024 by Katina Torres RN Outcome: Progressing Goal: Patient will follow hip precautions during transfers 07/19/2024 024 by Katina Torres RN Outcome: Adequate for Discharge 07/19/2024 024 by Katina Torres RN Outcome: Progressing Goal: Patient maintains weight bearing status during transfers 07/19/2024 024 by Katina Torres RN Outcome: Adequate for Discharge 07/19/2024 024 by Katina Torres RN Outcome: Progressing Problem: Pain Goal: Patient will manage pain with the appropriate technique/Intervention 07/19/2024 024 by Katina Torres RN Outcome: Adequate for Discharge 07/19/2024 024 by Katina Torres RN Outcome: Progressing 07/19/2024241 by Katina Torres RN Outcome: Progressing 07/19/2024 023 by Katina Torres RN Outcome: Progressing Goal: Patient will demonstrate intervention for managing pain 07/19/2024 024 by Katina Torres RN Outcome: Adequate for Discharge 07/19/2024 024 by aKtina Torres RN Outcome: Progressing 07/19/2024 024 by Katina Torres RN Outcome: Progressing 07/19/2024 023 by Katina Torres RN Outcome: Progressing Goal: Patient will reduce or eliminate use of analgesics 07/19/2024245 by Katina Torres RN Outcome: Adequate for Discharge 07/19/2024 024 by Katina Torres RN Outcome: Progressing 07/19/2024 024 by Katina Torres RN Outcome: Progressing 07/19/2024 023 by Katina Torres RN Outcome: Progressing Goal: Pain is manageable through therapies 07/19/2024 024 by Katina Torres RN Outcome: Adequate for Discharge 07/19/2024 024 by Katina Torres RN Outcome: Progressing 07/19/2024 024 by Katina Torres RN Outcome: Progressing 07/19/2024 023 by Katina Torres RN Outcome: Progressing Goal: Patient will verbalize an acceptable level of pain 07/19/2024245 by Katina Torres RN Outcome: Adequate for Discharge 07/19/2024 024 by Katina Torres RN Outcome: Progressing 07/19/2024 0242 by Katina Torres RN Outcome: Progressing 07/19/2024 0238 by Katina Torres RN Outcome: Progressing Goal: Patients pain is managed to allow active participation in daily activities 07/19/2024 0246 by Katina Torres RN Outcome: Adequate for Discharge 07/19/2024 0243 by Katina Torres RN Outcome: Progressing 07/19/2024 0242 by Katnia Torres RN Outcome: Progressing 07/19/2024 0238 by Katina Torres RN Outcome: Progressing Goal: Patient will increase activity level 07/19/2024 0246 by Katina Torres RN Outcome: Adequate for Discharge 07/19/2024 0242 by Katina Torres RN Outcome: Progressing 07/19/2024 0238 by Katina Torres RN Outcome: Progressing Goal: Patient verbalizes a reduction in pain level 07/19/2024 024 by Katina Torres RN Outcome: Adequate for Discharge 07/19/2024 0243 by Katina Torres RN Outcome: Progressing 07/19/2024 024 by Katnia Torres RN Outcome: Progressing 07/19/2024 0238 by Katina Torres RN Outcome: Progressing Problem: Compromised Skin Integrity Goal: Patient will be free from infection 07/19/2024 0246 by Katina Torres RN Outcome: Adequate for Discharge 07/19/2024 024 by Katina Torres RN Outcome: Not Progressing 07/19/2024 024 by Katina Torres RN Outcome: Progressing 07/19/2024 0238 by Katina Torres RN Outcome: Progressing Goal: Patient will maintain/improve skin integrity through proper skin care techniques 07/19/2024 0246 by Katina Torres RN Outcome: Adequate for Discharge 07/19/2024 0243 by Katina Torres RN Outcome: Progressing 07/19/2024 0242 by Katina Torres RN Outcome: Progressing 07/19/2024 0238 by Katina Torres RN Outcome: Progressing Goal: Patient will demonstrate appropriate pressure relief techniques 07/19/2024 024 by Katina Torres RN Outcome: Adequate for Discharge 07/19/2024 024 by Katina Torres RN Outcome: Progressing 07/19/2024 0238 by Katina Torres RN Outcome: Progressing Goal: Patient will demonstrate appropriate skin care techniques 07/19/2024 0246 by Katina Torres RN Outcome: Adequate for Discharge 07/19/2024 0242 by Katina Torres RN Outcome: Progressing 07/19/2024 0238 by Katina Torres RN Outcome: Progressing Goal: Patient will be free from infection 07/19/2024 024 by Katina Torres RN Outcome: Adequate for Discharge 07/19/2024 0242 by Katina Torres RN Outcome: Progressing 07/19/2024 0238 by Katina Torres RN Outcome: Progressing Goal: Patient demonstrates skin care/treatment/dressing change 07/19/2024 024 by Katina Torres RN Outcome: Adequate for Discharge 07/19/2024 024 by Katina Torres RN Outcome: Progressing Goal: Patient will maintain good skin integrity 07/19/2024 024 by Katina Torres RN Outcome: Adequate for Discharge 07/19/2024 024 by Katina Torres RN Outcome: Progressing Goal: Patient exhibits signs of wound healing. 07/19/2024 024 by Katina Torres RN Outcome: Adequate for Discharge 07/19/2024 024 by Katina Torres RN Outcome: Progressing 07/19/2024241 by Katina Torres RN Outcome: Progressing Goal: Patient demonstrates pressure reduction techniques 07/19/2024245 by Katina Torres RN Outcome: Adequate for Discharge 07/19/2024241 by Katina Torres RN Outcome: Progressing Goal: Patient demonstrates preventative skin care measures 07/19/2024245 by Katina Torres RN Outcome: Adequate for Discharge 07/19/2024241 by Katina Torres RN Outcome: Progressing Goal: Patient will perform skin checks daily on residual limb 07/19/2024 024 by Katina Torres RN Outcome: Adequate for Discharge 07/19/2024 024 by Katina Torres RN Outcome: Progressing Goal: Patient will appropriately don and doff shrinkers and prevent and skin breakdown 07/19/2024245 by Katina Torres RN Outcome: Adequate for Discharge 07/19/2024241 by Katina Torres RN Outcome: Progressing Goals: Identify possible barriers to meeting goals/advancing plan of care: still on heparin gtt. Stability of the patient: Moderately Unstable - Medium risk of patient condition declining or worsening End of Shift Summary: pt requires mod assist w movement. Pain adequately controlled w pain meds * Mehnaz Medina RN - 07/18/2024 6:13 PM EST Problem: Falls: Fall Risk (Adult IP BH) Goal: (Goal) Patient will experience maximum safety and reduce risk for falls. Outcome: Progressing Goal: Patient will not fall or injure themselves during hospitalization. Outcome: Progressing Problem: Balance Goal: Patient will demonstrate Intervention to enhance balance for safe completion of daily activities Outcome: Progressing Goal: Patient will maintain balance Outcome: Progressing Goal: Patient will maintain balance to allow for safe mobility Outcome: Progressing Goal: Patient will maintain standing and sitting balance to allow for completion of daily activities Outcome: Progressing Goal: Patient will tolerate standing Outcome: Progressing Goal: Maintains dynamic standing balance with upper extremity support Outcome: Progressing Goal: Maintains dynamic standing balance without upper extremity support Outcome: Progressing Goal: Maintains static standing balance with upper extremity support Outcome: Progressing Goal: Maintains static standing balance without upper extremity support Outcome: Progressing Goal: Maintains static sitting balance with upper extremity support Outcome: Progressing Goal: Maintains static sitting balance without upper extremity support Outcome: Progressing Goal: Maintains dynamic sitting balance with upper extremity support Outcome: Progressing Goal: Maintains dynamic sitting balance without upper extremity support Outcome: Progressing Problem: Mobility Goal: Patient will be able to go up and down a curb/step with the appropriate device Outcome: Progressing Goal: Patient will propel wheelchair household/community distances Outcome: Progressing Goal: Patient will demonstrate kitchen mobility Outcome: Progressing Goal: Patient will recall and demonstrate 3 out of 3 total hip precautions during mobility Outcome: Progressing Goal: Patient will ambulate community distance Outcome: Progressing Goal: Patient will propel wheelchair household distances Outcome: Progressing Goal: Patient will ambulate household distance Outcome: Progressing Goal: Patient will navigate 4-6 steps with rails/device Outcome: Progressing Goal: Patient will demonstrate safe mobility requirements Outcome: Progressing Goal: Patient will propel the wheelchair Outcome: Progressing Goal: Patient will ambulate Outcome: Progressing Goal: Patient will ambulate up and down a curb/step Outcome: Progressing Goal: Patient will ascend and descend four to six stairs Outcome: Progressing Goal: Patient will ascend and descend a flight of stairs Outcome: Progressing Goal: Mobility for amputee - patient will tolerate lying prone for 20 minutes 3 times per day Outcome: Progressing Problem: Safety Goal: Patient will adhere to precautions during ADL's and transfers Outcome: Progressing Goal: Patient will demonstrate safety requirements appropriate to situation/environment Outcome: Progressing Goal: Patient will utilize safety techniques Outcome: Progressing Goal: Patient locks brakes on wheelchair Outcome: Progressing Goal: Patient uses call light consistently to request assistance with transfers Outcome: Progressing Goal: Patient uses gait belt during all transfers Outcome: Progressing Goal: Patient will be weaned from video monitoring Outcome: Progressing Goal: Free from fall injury Outcome: Progressing Problem: Transfers Goal: Patient will transfer to car Outcome: Progressing Goal: Patient will transfer from one surface to another Outcome: Progressing Goal: Patient will demonstrate safe transfer techniques Outcome: Progressing Goal: Patient will transfer to commode Outcome: Progressing Goal: Patient will transfer to tub/shower Outcome: Progressing Goal: Patient will transfer from wheelchair to toilet Outcome: Progressing Goal: Transfer from bed to chair. Outcome: Progressing Goal: Patient to transfer to and from sit to supine Outcome: Progressing Goal: Patient will perform bed mobility Outcome: Progressing Goal: Patient will roll Outcome: Progressing Goal: Patient will transfer sit to and from stand Outcome: Progressing Goal: Patient will perform car transfer Outcome: Progressing Goal: Patient will perform toilet transfer Outcome: Progressing Goal: Patient will perform tub/shower transfer Outcome: Progressing Goal: Patient will follow hip precautions during transfers Outcome: Progressing Goal: Patient maintains weight bearing status during transfers Outcome: Progressing Problem: Pain Goal: Patient will manage pain with the appropriate technique/Intervention Outcome: Progressing Goal: Patient will demonstrate intervention for managing pain Outcome: Progressing Goal: Patient will reduce or eliminate use of analgesics Outcome: Progressing Goal: Pain is manageable through therapies Outcome: Progressing Goal: Patient will verbalize an acceptable level of pain Outcome: Progressing Goal: Patients pain is managed to allow active participation in daily activities Outcome: Progressing Goal: Patient will increase activity level Outcome: Progressing Goal: Patient verbalizes a reduction in pain level Outcome: Progressing Problem: Compromised Skin Integrity Goal: Patient will be free from infection Outcome: Progressing Goal: Patient will maintain/improve skin integrity through proper skin care techniques Outcome: Progressing Goal: Patient will demonstrate appropriate pressure relief techniques Outcome: Progressing Goal: Patient will demonstrate appropriate skin care techniques Outcome: Progressing Goal: Patient will be free from infection Outcome: Progressing Goal: Patient demonstrates skin care/treatment/dressing change Outcome: Progressing Goal: Patient will maintain good skin integrity Outcome: Progressing Goal: Patient exhibits signs of wound healing. Outcome: Progressing Goal: Patient demonstrates pressure reduction techniques Outcome: Progressing Goal: Patient demonstrates preventative skin care measures Outcome: Progressing Goal: Patient will perform skin checks daily on residual limb Outcome: Progressing Goal: Patient will appropriately don and doff shrinkers and prevent and skin breakdown Outcome: Progressing Goals: Identify possible barriers to meeting goals/advancing plan of care: Stability of the patient: Moderately Stable - Low risk of patient condition declining or worsening End of Shift Summary: * Lencho Stuart MD - 07/18/2024 5:03 PM EST Images from the original note were not included. SONYA PROGRESS NOTE Date: 07/18/2024 Author: Lencho Stuart MD Patient ID: Ana Contreras is a 79 y.o. female : 1945 MR#: [id number] SUBJECTIVE CC: Follow-up RENE, DVT and encephalopathy Patient seen first time today. Patient's daughter and son-in-law at bedside and updated. Patient tired appearing but not in acute distress and denies having any pain or active complaints presently. Seen in the morning before dialysis. Patient denies any overt bleeding episodes ROS: No chest pain No shortness of breath No nausea vomiting No fever OBJECTIVE Vitals: Vitals: 07/18/24 1533 BP: (!) 153/62 Pulse: 101 Resp: 16 Temp: 36.8 ??C (98.2 ??F) SpO2: 96% Physical Exam: General: Awake. Not in acute distress. Appears somewhat fatigued CVS: S1-S2 Pulmonary: No wheezes or crackles GI: Bowel sounds present. No tenderness Skin: No cyanosis LAB RESULTS HEMATOLOGY Lab Results Component Value Date WBC 25.5 (H) 07/18/2024 HGB 7.8 (L) 07/18/2024 HCT 24.9 (L) 07/18/2024 MCV 77.6 (L) 07/18/2024 PLT 242 07/18/2024 CHEMISTRY Lab Results Component Value Date GLUCOSE 210 (H) 07/18/2024 NA 132 (L) 07/18/2024 K 4.4 07/18/2024 CO2 27 07/18/2024 CL 95 (L) 07/18/2024 BUN 67 (H) 07/18/2024 CREATININE 4.92 (H) 07/18/2024 EGFR 8 (L) 07/18/2024 CALCIUM 7.5 (L) 07/18/2024 MG 2.2 07/17/2024 PHOS 2.9 07/17/2024 ANIONGAP 10 07/18/2024 LFTs No components found for: LFT Miscellaneous Lab Results Component Value Date TSH 4.50 (H) 07/08/2024 IRON 20 (L) 07/08/2024 TIBC 186 (L) 07/08/2024 FERRITIN 708 (H) 07/08/2024 FOLATE >20.0 (H) 07/08/2024 Current Medications: atorvastatin, 10 mg, oral, Nightly B complex-vitamin C-folic acid, 1 each, oral, Daily insulin glargine, 10 Units, subcutaneous, Nightly insulin lispro, 1-6 Units, subcutaneous, Before meals & nightly insulin lispro, 3 Units, subcutaneous, TID AC pantoprazole, 40 mg, oral, q AM AC polyetheylene glycol, 17 g, oral, Daily sodium chloride, 10 mL, intravenous, BID thiamine, 100 mg, oral, Daily heparin, 18 Units/kg/hr, Last Rate: 28 Units/kg/hr (07/18/24 1010) PRN medications: acetaminophen, benzonatate, dextrose 50%, dextrose 50%, dextrose, dextrose, glucagon injection, heparin OR heparin, hydrALAZINE, HYDROmorphone, naloxone, ondansetron, oxyCODONE, artificial tears, Insert peripheral IV AND Maintain IV access AND Saline lock IV AND sodium chloride AND sodium chloride, sodium chloride, sodium chloride Fluids: heparin, 18 Units/kg/hr, Last Rate: 28 Units/kg/hr (07/18/24 1010) ASSESSMENT & PLAN 79-year-old female with PMH of DM type II, HTN, CKD stage IV, iron deficiency anemia, dyslipidemia and recent diagnosis of lung nodule (with planned bronchoscopy and EBUS) who presented to the hospital after wellness check was called to police by her daughter. Apparently she was not answering to her calls and she was found on the ground unable to get up. Mentation she was afebrile without hypoxiaand had WBC of 27K, hemoglobin 7.3 (prior hemoglobin 7.4 on 06/17/2024), RENE with BUN 63 and creatinine 4. Calcium 10.6 with corrected calcium around 12. High sensitive troponin 80, 81, CK6 149. UA had proteinuria, glucosuria, 21 RBCs, 7 WBCs and negative bacteria. EKG demonstrated sinus rhythm with first-degree AV block, RBBB and QTc 454. CT head demonstrated no acute intracranial process. CT cervical spine with no fracture chest x-ray without acute findings. Patient was started on IV fluids, admitted for further monitoring and treatment. -RENE/ATN. No renal obstruction or evidence of M spike or paraproteinemia on SPEP. RENE did not respond to IV fluids and albumin. Renal team consulted and patient was started on hemodialysis on 07/15/2024. -Underlying CKD stage IV with prior hemoglobin in May around 2 -Anemia with iron deficiency. Treated with IV iron. -Hypokalemia. Treated. -Left lower extremity DVT. She was found to have distal occlusive DVT in left lower extremity. Risks and benefits of anticoagulation discussed especially given significant anemia and risk of bleeding. Patient and family agreed and she had been started on heparin drip. If hemoglobin remained stable over the next 24 hours will transition to Eliquis. (Unless renal teamis planning on biopsy, additional procedures). -Hypercalcemia. On presentation calcium 10.6 with corrected calcium around 12. Improved with IV fluids. Calcium supplements on hold. PTH low. Will check PTH related peptide as malignancy is a possibility. -Acute metabolic encephalopathy. Multifactorial and likely related to electrolyte abnormalities. Mental status back to baseline -Right upper lobe pulmonary nodules/right lung mass. Patient had CT-guided biopsy on 05/23/2024 which was nondiagnostic. She had been referred to thoracic team and plan is for endoscopy with EBUS. -Leukocytosis. She has had nonproductive cough present for several months which is likely related to her lung mass. Viral respiratory panel negative. Blood cultures and urine cultures without growth. CT chest with no evidence of infiltrates or obvious source. Leukocytosis could be reactive and/or malignancy related. -Traumatic rhabdomyolysis. Resolved. -Mildly elevated TSH. With normal FT4 and slightly low FT3. Recommend reevaluation with thyroid studies after 4 weeks -DM type II with neuropathy Oral hypoglycemic medications including metformin had been discontinued due to renal dysfunction. Currently on Lantus 10 units at bedtime and POC/SSI -Dyslipidemia. On statin -HTN. Lisinopril had been discontinued on admission due to RENE. DVT prophylaxis: Heparin CODE STATUS: Full code Disposition. Likely transition to SNF over the next 1-3 days. HCP: DaughterDennise. [phone] * Kayleigh Laguna RD - 07/18/2024 4:24 PM EST 07/18/2024 @ 4:24 PM EST Nutrition Follow Up Note Reason for RD Intervention: Assessment Type: Follow-up Anthropometrics: Height: 162.5 cm (63.98 ) Weight: 81.7 kg (180 lb 1.6 oz) Weight Method: Actual BMI (Calculated): 30.9 BMI Class: Overweight IBW (lbs): 120 Current Diet and Supplements: Dietary Orders (From admission, onward) Start Ordered 07/17/24 1206 Adult diet [facility]; Cardiac, Diabetic; 60 gm carb/Meal; Cardiac Diet effective now Question Answer Comment Location [facility] Diet Type (req) Cardiac Diet Type (req) Diabetic Diabetic 60 gm carb/Meal Diet Type (cardiac) Cardiac 07/17/24 1205 07/11/24 1133 Dietary nutrition supplements Two times daily (BID); [facility]; Diabetic Supplement Continuous Question Answer Comment Frequency Two times daily (BID) Location [facility] Supplements Diabetic Supplement 07/11/24 1132 History of presenting illness: Patient is a 79 y.o. female with a history of Past Medical History: Diagnosis Date Anemia Arthritis Blindness Decreased vision 11/29/2014 DX:Decreased vision Diabetes mellitus, type 2 (CMS/HCC) 02/14/2014 DX:Diabetes mellitus, type 2 (HCC) DVT, lower extremity (CMS/HCC) LEFT LEG Family history of early CAD 03/01/2014 DX:Family history of early CAD Family history of factor V Leiden mutation 12/12/2015 DX:Family history of factor V Leiden mutation History of renal dialysis CURRENT VIA [facility] (hearing loss) Hyperlipidemia 02/14/2014 DX:Hyperlipidemia Hypertension 02/14/2014 DX:Hypertension Joint pain Lung nodule Microalbuminuria 09/22/2016 DX:Microalbuminuria Osteoporosis 02/14/2014 DX:Osteoporosis Past Surgical History: Procedure Laterality Date CATARACT EXTRACTION Bilateral 2019 PROCEDURE: HISTORICAL CATARACT REMOVAL OTHER SURGICAL HISTORY 05/2012 PROCEDURE: ---- OTHER ----; COMMENT: lumbar microdiscectomy admitted 07/08/2024 with Acute encephalopathy. Food/Nutrition History: Previous Diet / Nutrition Education / Counseling: Per MST screeening, pt reports weight loss of 24-33 lb in past 3 months, and reports poor PO intake. Pt living by herself prior to admission, but hassupport from children. History of DM- takes glipizide at home. No noted food allergies. Appetite LEDGER CLERK: Poor Intake LEDGER CLERK: Decreased Weight History: Wt Readings from Last 10 Encounters: 07/18/24 81.7 kg (180 lb 1.6 oz) 06/17/24 76.2 kg (168 lb) 06/13/24 76.5 kg (168 lb 9.6 oz) 06/06/24 76.4 kg (168 lb 6.4 oz) 05/30/24 76.7 kg (169 lb) 05/23/24 76.2 kg (168 lb) 05/13/24 77.6 kg (171 lb) 04/27/24 78.8 kg (173 lb 11.2 oz) 04/18/24 79.8 kg (176 lb) 04/12/24 80.3 kg (177 lb) Subjective Assessment: Pt seen for follow up. She reports appetite decline since last visit. She has been having less thanhalf of meals per her report. Per son, having difficulty with chewing some foods- would prefer a soft diet. States she is drinking glucerna supplements. Started on dialysis on 07/15. POCs elevated between 210-244. Nutrition-Related Lab Values: Results from last 7 days Lab Units 07/18/24 1600 07/18/24 0754 07/18/24 0607 07/17/24 0757 07/17/24 0630 07/12/24 0807 07/12/24 0619 SODIUM mmol/L -- -- 132* -- 133 < > 132* POTASSIUM mmol/L -- -- 4.4 -- 3.8 < > 3.7 PHOSPHORUS mg/dL -- -- -- -- 2.9 < > 2.9 MAGNESIUM mg/dL -- -- -- -- 2.2 < > 1.8* CHLORIDE mmol/L -- -- 95* -- 96 < > 102 CO2 mmol/L -- -- 27 -- 26 < > 18* BUN mg/dL -- -- 67* -- 53* < > 70* CREATININE mg/dL -- -- 4.92* -- 4.03* < > 4.64* EGFR mL/min/1.73m2 -- -- 8* -- 11* < > 9* CALCIUM mg/dL -- -- 7.5* -- 7.7* < > 8.1* BILIRUBIN TOTAL mg/dL -- -- -- -- -- -- 0.5 ALK PHOS unit/L -- -- -- -- -- -- 157* ALT unit/L -- -- -- -- -- -- 37 AST unit/L -- -- -- -- -- -- 32 POCT GLUCOSE mg/dL 210* < > -- < > -- < > -- GLUCOSE mg/dL -- -- 225* -- 293* < > 132* WBC AUTO K/mcL -- -- 25.5* -- 23.0* 23.0* < > 21.8* < > = values in this interval not displayed. Lab Results Component Value Date LIPASE <10 (L) 07/12/2024 Food/Nutrition-Current Status: Intake Type: P.O. Appetite: Poor Intake Amount (%): 25-50% Intake Assessment: Variable Nutrition Focused Physical Findings: Overall Appearance: No visual findings of muscle or fat depletion Skin: Skin intact per front end engineer Nutrition Diagnosis: Code Type: None Identified Status: Resolved Diagnosis: Unintentional Weight Loss Etiology: Changes in taste and appetite or preference Symptoms: pt report of 24-33 lb weight loss in 3 months prior to admission Nutrition Interventions: Meals/Snacks, Medical Food Supplement, Diet Order -Continue with 60 gm carb/meal diet. Liberalize cardiac restriction to 2 gm Na given inadequate intake. Change to IDDSI 7 easy to chew diet per pt request. Monitor K and phos and follow need for restriction- will avoid if possible given inadequate intake - Add nephrocap and 100 mg thiamine for inadequate intake - Updated delegate with pt preferences - Continue glucerna BID for inadequate intake - Monitor weights, POCs, skin integrity, renal labs Goals: Patient will initially consume at least 50% of meals. , Patient will consume ONS., Monitor/control glucose levels, Improvement in renal labs., Maintain weight., Stooling appropriately., and Maintain skin integrity. Monitoring/Evaluation: Fluid/Beverage Intake, Food Intake, Medical Food Supp/Oral Nutrition Supp, Weight, Diet Order, Renal/Electrolyte Profile Follow Up: Nutrition Priority Level: Moderate Please consult nutrition if needed sooner. RD remains available and will continue to follow. Signature: Kayleigh Laguna RD * Nalini Caceres RN - 07/18/2024 3:29 PM EST CM Progress Note DANITZA: 07/21 Barriers: heparin drip, diaylsis, UTI Plan: SNF * Miguel Angel Lemus - 07/18/2024 1:45 PM EST SPIRITUAL CARE Date/Time:07/18/24 at 1345 Type of Visit: Initial Visit and Steam Shovel Engineer Rounding Reason for Visit: Spiritual/Emotional Support and Spiritual Assessment Time Spent: 25 Minutes Location: [address] [place] [address] Sacramental Encounters: Spiritual Distress Assessment: Spiritual Distress Assessment at beginning of visit Meaning - Overall Life Balance: Some evidence of unmet spiritual need Transcendence: Some evidence of unmet spiritual need Values - Acknowledgement: Some evidence of unmet spiritual need Values - Control: Substantial evidence of unmet spiritual need Psycho-Social Identity: Some evidence of unmet spiritual need SDAT Beginning of Visit Average Score: 1.2 Spiritual Distress Assessment at end of visit Meaning - Overall Life Balance: Some evidence of unmet spiritual need Transcendence: Some evidence of unmet spiritual need Values - Acknowledgement: Some evidence of unmet spiritual need Values - Control: Substantial evidence of unmet spiritual need Psycho-Social Identity: Some evidence of unmet spiritual need SDAT End of Visit Average Score: 1.2 Spiritual Assessment/Distress Spiritual Care Assessment: Assessment: Pt seemed drowsy and complained of being very weak. Pt expressed concern over the weakness as it related to the need to pause her cancer treatment. Pt seems to have good family support primarily through her . Pt very much longed to return home and missed her two cats. Pt reportedbeing Syn[employer] while also reporting that she did not pray often. Steam Shovel Engineer's suggestion to pray that evening was received very well. Intervention: NE Spiritual Care Interventions : focus on the present, normalized experience of patient/family, provided anxiety containment, provided support, explored hope, explored relational needs and resources, explored spiritual needs and resources, and listened empathically Outcomes: distress reduced, expressed gratitude, expressed humor, expressed intermediate hope, identified priorities, and verbally processed emotions Plan of Care: No Follow up required. Please re-consult if new need comes up. *Reference: Spiritual Distress Assessment Tool: The SDAT is a clinical tool used by chaplains to identify unmet spiritual and emotional needs that can impact Goals of Care in the following categories: Spiritual Distress Assessment Legend Spiritual Needs Related Questions Meaning Are you having difficulties coping with what is happening to your now? Does your hospitalization have any repercussions on the way you live usually? Transcendence Do you have a particular anabaptism, jimena, or spirituality? Is your anabaptism/spirituality/jimena challenged by what is happening to you now? Values Do you think that the health professionals caring for you know you well enough? Do you feel that you are participating in the decisions made about your care? Psycho-Social Identity Do you have any worries or difficulties regarding your family or other persons close to you? Do you feel lonely? Do you have links to your jimena community? SCALE 0= no evidence of unmet spiritual needs 1= some evidence of unmet spiritual needs 2= substantial evidence of unmet spiritual needs 3= evidence of severe unmet spiritual needs * Miguel Quiles MD - 07/18/2024 11:00 AM EST Images from the original note were not included. Progress Note CHIEF COMPLAINT F/u SUBJECTIVE Patient seen and examined Family at bedside updated MEDICAL HISTORY Past Medical History: Diagnosis Date Anemia Arthritis Blindness Decreased vision 11/29/2014 DX:Decreased vision Diabetes mellitus, type 2 (CMS/HCC) 02/14/2014 DX:Diabetes mellitus, type 2 (HCC) DVT, lower extremity (CMS/HCC) LEFT LEG Family history of early CAD 03/01/2014 DX:Family history of early CAD Family history of factor V Leiden mutation 12/12/2015 DX:Family history of factor V Leiden mutation History of renal dialysis CURRENT [facility]IA [facility] (hearing loss) Hyperlipidemia 02/14/2014 DX:Hyperlipidemia Hypertension 02/14/2014 DX:Hypertension Joint pain Lung nodule Microalbuminuria 09/22/2016 DX:Microalbuminuria Osteoporosis 02/14/2014 DX:Osteoporosis MEDICATIONS atorvastatin, 10 mg, oral, Nightly insulin glargine, 10 Units, subcutaneous, Nightly insulin lispro, 1-6 Units, subcutaneous, Before meals & nightly insulin lispro, 3 Units, subcutaneous, TID AC pantoprazole, 40 mg, oral, q AM AC polyetheylene glycol, 17 g, oral, Daily sodium chloride, 10 mL, intravenous, BID PRN medications: acetaminophen, benzonatate, dextrose 50%, dextrose 50%, dextrose, dextrose, glucagon injection, heparin OR heparin, hydrALAZINE, HYDROmorphone, naloxone, ondansetron, oxyCODONE, artificial tears, Insert peripheral IV AND Maintain IV access AND Saline lock IV AND sodium chloride AND sodium chloride, sodium chloride, sodium chloride heparin, 18 Units/kg/hr, Last Rate: 28 Units/kg/hr (07/18/24 1010) OBJECTIVE Vital signs in last 24 hours: Visit Vitals BP (!) 153/59 (BP Location: Right arm, Patient Position: Lying) Pulse 97 Temp 37.1 ??C (98.8 ??F) (Temporal) Resp 14 Intake/Output last 24 hours: Intake/Output Summary (Last 24 hours) at 07/18/2024 1101 Last data filed at 07/18/2024 0600 Gross per 24 hour Intake 707.51 ml Output 120 ml Net 587.51 ml Weights: Admission Weight: Weight: 72.6 kg (160 lb) Wt Readings from Last 3 Encounters: 07/18/24 81.7 kg (180 lb 1.6 oz) 06/17/24 76.2 kg (168 lb) 06/13/24 76.5 kg (168 lb 9.6 oz) Physical Exam: General: No acute distress HEENT: Normocephalic, atraumatic, anicteric Cardiovascular: S1 S2 normal Respiratory: unlabored Gl: soft non-distended Extremities: No cyanosis Neurological: Alert Integumentary: no rash Psych: Calm, cooperative LABS Results from last 7 days Lab Units 07/18/24 0607 07/17/24 0630 07/16/24 0645 WBC AUTO K/mcL 25.5* 23.0* 23.0* 27.6* HEMOGLOBIN g/dL 7.8* 8.0* 8.0* 8.4* HEMATOCRIT % 24.9* 25.6* 25.6* 25.9* MCV FL 77.6* 78.5* 78.5* 76.2* PLATELETS K/mcL 242 252 252 258 Results from last 7 days Lab Units 07/18/24 0607 07/17/24 0630 07/16/24 0645 CREATININE mg/dL 4.92* 4.03* 5.37* BUN mg/dL 67* 53* 77* SODIUM mmol/L 132* 133 135 POTASSIUM mmol/L 4.4 3.8 3.8 CHLORIDE mmol/L 95* 96 103 CO2 mmol/L 27 26 18* Phosphorus Date Value Ref Range Status 07/17/2024 2.9 2.5 - 4.5 mg/dL Final 07/15/2024 4.2 2.5 - 4.5 mg/dL Final 07/13/2024 3.0 2.5 - 4.5 mg/dL Final PTH Date Value Ref Range Status 07/10/2024 10.5 (L) 18.5 - 88.0 pcg/mL Final 07/08/2024 6.5 (L) 18.5 - 88.0 pcg/mL Final Iron Date Value Ref Range Status 07/08/2024 20 (L) 40 - 150 mcg/dL Final Comment: Hemolysis present 05/31/2024 14 (L) 40 - 150 mcg/dL Final TIBC Date Value Ref Range Status 07/08/2024 186 (L) 250 - 450 mcg/dL Final 05/31/2024 278 250 - 450 mcg/dL Final Ferritin Date Value Ref Range Status 07/08/2024 708 (H) 8 - 252 ng/mL Final 05/31/2024 294 (H) 8 - 252 ng/mL Final No results found for: COLORUA , CLARITYUA , SPECGRAVUA , PHUA , PROTUA , GLUCOSEUA , KETONESUA , BILIRUBINUA , BLOODUA , UROBILINOGUA , NITRITEUA IMPRESSION and PLAN RENE Hyponatremia Anemia CKD 3 RENE due to acute tubular injury No obstruction by renal US No evidence for paraproteinemia No M spike on SPEP Scr ~ 1.13 mg/dl on 01/24 Nephrogenic anemia Iron deficiency REC HD in am Renal diet IV iron Transfuse for Hb < 7 Miguel Quiles MD * Jolene Cardona RN - 07/17/2024 6:23 PM EST Goals: Identify possible barriers to meeting goals/advancing plan of care: DVT Stability of the patient: Moderately Unstable - Medium risk of patient condition declining or worsening End of Shift Summary: Pt A&Ox3, appears tired. BP slightly elevated, sat 97 on RA. Appetite is poor. consumed 25% of meals. PO intake encouraged. Heparin gtt infusing per order. Lopez put out 50 mL of cloudy urine. Safety and comfort provided * Mindy Katz MD - 07/17/2024 4:12 PM EST Images from the original note were not included. Progress Note CHIEF COMPLAINT F/u SUBJECTIVE Patient seen and examined MEDICAL HISTORY Past Medical History: Diagnosis Date Anemia Arthritis Blindness Decreased vision 11/29/2014 DX:Decreased vision Diabetes mellitus, type 2 (CMS/HCC) 02/14/2014 DX:Diabetes mellitus, type 2 (HCC) Family history of early CAD 03/01/2014 DX:Family history of early CAD Family history of factor V Leiden mutation 12/12/2015 DX:Family history of factor V Leiden mutation HL (hearing loss) Hyperlipidemia 02/14/2014 DX:Hyperlipidemia Hypertension 02/14/2014 DX:Hypertension Joint pain Lung nodule Microalbuminuria 09/22/2016 DX:Microalbuminuria Osteoporosis 02/14/2014 DX:Osteoporosis MEDICATIONS atorvastatin, 10 mg, oral, Nightly insulin glargine, 8 Units, subcutaneous, Nightly insulin lispro, 1-6 Units, subcutaneous, Before meals & nightly insulin lispro, 2 Units, subcutaneous, TID with meals pantoprazole, 40 mg, oral, q AM AC polyetheylene glycol, 17 g, oral, Daily sodium chloride, 10 mL, intravenous, BID PRN medications: acetaminophen, benzonatate, dextrose 50%, dextrose 50%, dextrose, dextrose, glucagon injection, heparin OR heparin, hydrALAZINE, HYDROmorphone, naloxone, ondansetron, oxyCODONE, artificial tears, Insert peripheral IV AND Maintain IV access AND Saline lock IV AND sodium chloride AND sodium chloride, sodium chloride, sodium chloride heparin, 18 Units/kg/hr, Last Rate: 24.442 Units/kg/hr (07/17/24 1332) OBJECTIVE Vital signs in last 24 hours: Visit Vitals BP (!) 144/60 (BP Location: Left arm, Patient Position: Lying) Pulse 100 Temp 36.4 ??C (97.5 ??F) (Temporal) Resp 18 Intake/Output last 24 hours: Intake/Output Summary (Last 24 hours) at 07/17/2024 1613 Last data filed at 07/17/2024 0603 Gross per 24 hour Intake 789.21 ml Output 400 ml Net 389.21 ml Weights: Admission Weight: Weight: 72.6 kg (160 lb) Wt Readings from Last 3 Encounters: 07/17/24 80.5 kg (177 lb 6.4 oz) 06/17/24 76.2 kg (168 lb) 06/13/24 76.5 kg (168 lb 9.6 oz) Physical Exam: General: No acute distress HEENT: Normocephalic, atraumatic, anicteric Cardiovascular: S1 S2 normal Respiratory: unlabored Gl: soft non-distended Extremities: No cyanosis Neurological: Alert Integumentary: no rash Psych: Calm, cooperative LABS Results from last 7 days Lab Units 07/17/24 0630 07/16/24 0645 07/15/24 0656 WBC AUTO K/mcL 23.0* 23.0* 27.6* 23.7* HEMOGLOBIN g/dL 8.0* 8.0* 8.4* 7.5* HEMATOCRIT % 25.6* 25.6* 25.9* 23.6* MCV FL 78.5* 78.5* 76.2* 75.9* PLATELETS K/mcL 252 252 258 246 Results from last 7 days Lab Units 07/17/24 0630 07/16/24 0645 07/15/24 0856 CREATININE mg/dL 4.03* 5.37* 6.70* 6.70* BUN mg/dL 53* 77* 97* 97* SODIUM mmol/L 133 135 132* 132* POTASSIUM mmol/L 3.8 3.8 3.8 3.8 CHLORIDE mmol/L 96 103 104 104 CO2 mmol/L 26 18* 16* 16* Phosphorus Date Value Ref Range Status 07/17/2024 2.9 2.5 - 4.5 mg/dL Final 07/15/2024 4.2 2.5 - 4.5 mg/dL Final 07/13/2024 3.0 2.5 - 4.5 mg/dL Final PTH Date Value Ref Range Status 07/10/2024 10.5 (L) 18.5 - 88.0 pcg/mL Final 07/08/2024 6.5 (L) 18.5 - 88.0 pcg/mL Final Iron Date Value Ref Range Status 07/08/2024 20 (L) 40 - 150 mcg/dL Final Comment: Hemolysis present 05/31/2024 14 (L) 40 - 150 mcg/dL Final TIBC Date Value Ref Range Status 07/08/2024 186 (L) 250 - 450 mcg/dL Final 05/31/2024 278 250 - 450 mcg/dL Final Ferritin Date Value Ref Range Status 07/08/2024 708 (H) 8 - 252 ng/mL Final 05/31/2024 294 (H) 8 - 252 ng/mL Final No results found for: COLORUA , CLARITYUA , SPECGRAVUA , PHUA , PROTUA , GLUCOSEUA , KETONESUA , BILIRUBINUA , BLOODUA , UROBILINOGUA , NITRITEUA IMPRESSION and PLAN Acute kidney injury. RENE likely due to acute tubular injury. She has been adequately hydrated without significant improvement in renal function Though obstruction has been ruled out patient is retaining urine in the setting of pessary in place Patient was on MAK inhibitor lisinopril which would have contributed to her renal insufficiency. Patient is hypercalcemic and that could be a competent of hypercalcemia induced polyuria/RENE-most recent calcium was 8.1 Cannot rule out acute GN/interstitial disease Due to patient of fall CPK level was within normal limits Chronic kidney disease stage IIIb/IV at baseline in setting of longstanding hypertension diabetes with likely hypertensive/diabetic renal disease. Myeloma ruled out. Patient does not have any monoclonal gammopathy Hyponatremia which is hyperosmolar with serum osmolality about 300 Anemia which is iron deficient. We need to rule out myeloma. She could also have a component of erythropoietin deficiency Hypercalcemia. PTH is low consistent with malignancy related hypercalcemia Hypertension Right upper lobe pulmonary nodule -Avoid nephrotoxins, such as NSAIDs, iodinated contrast, and phosphate enema, as able. -Transfuse to hemoglobin above 7.0 -Follow-up calcium level -IV iron Ferrlecit x 5 doses given -Dose all mediations for appropriate eGFR -Follow-up renal function and electrolytes in a.m. -Lopez catheter with strict DAVID ( no urine output documented today) -Next dialysis will be on Thursday. Mindy Katz MD Cosigned by Chencho Wayne MD at 07/18/2024 1:51 PM EST * Kwesi Guido MD - 07/17/2024 9:05 AM EST Ana Contreras [birth year] 79 y.o. [id number] Kwesi Guido, * INTERVAL HISTORY: No events overnight SUBJECTIVE : Seen with nursing No fevers no chills, Cough has improved with Tessalon Perles. Patient complains of left calf pain, no bleeding. No palpitation or dizziness, no chest pain or shortness of breath Stable lower extremity edema Lopez catheter in place, draining turbid urine with large amount of sediment today. Has not ambulated today. Glucose has been elevated, resuming a diabetic diet. Patient is legally blind. OBJECTIVE: Vitals: 07/16/24202107/17/24 0217 07/17/24 0544 07/17/24 0756 BP: (!) 144/70 (!) 145/58 (!) 141/65 BP Location: Left arm Left arm Patient Position: Lying Lying Pulse: 110 108 107 Resp: 15 16 17 Temp: 37 ??C (98.6 ??F) 37 ??C (98.6 ??F) 36.3 ??C (97.3 ??F) TempSrc: Oral Oral SpO2: 98% 98% 97% Weight: 80.5 kg (177 lb 6.4 oz) Height: Temp (24hrs), Av.7 ??C (98.1 ??F), Min:36.3 ??C (97.3 ??F), Max:37 ??C (98.6 ??F) Intake/Output Summary (Last 24 hours) at 07/17/2024 0905 Last data filed at 07/17/2024 0603 Gross per 24 hour Intake 1029.21 ml Output 2400 ml Net -1370.79 ml Wt Readings from Last 1 Encounters: 07/17/24 0544 80.5 kg (177 lb 6.4 oz) 07/16/24 0552 80.6 kg (177 lb 11.2 oz) 07/15/24 1850 81.5 kg (179 lb 10.8 oz) 07/15/24 0600 82.4 kg (181 lb 9.6 oz) 07/14/24 0600 83.5 kg (184 lb) 07/14/24 0332 83.6 kg (184 lb 4 oz) 07/13/24 0600 78.7 kg (173 lb 9.6 oz) 07/12/24 0555 77.9 kg (171 lb 12.8 oz) 07/11/24 0500 79.1 kg (174 lb 6.4 oz) 07/10/24 0500 81.8 kg (180 lb 4.8 oz) 07/09/24 0600 74.6 kg (164 lb 6.4 oz) 07/09/24 0021 72.6 kg (160 lb) PHYSICAL EXAM: Gen: Elderly female, NAD CV -RRR soft systolic murmur Lungs -decreased breath sounds, no increased work of breathing. Abd - Soft, non-tender, non-distended Extremities -mild LE edema bilaterally. Tender left calf. Neuro - AO x3, no focal deficits, generalized weakness, legally blind. Patient has a small sacral wound covered with dressing. Lopez catheter in place. RESULTS: CBC BMP Results from last 7 days Lab Units 07/17/24 0630 07/16/24 0645 07/15/24 0656 07/14/24 0600 07/13/24 0638 WBC AUTO K/mcL 23.0* 23.0* 27.6* 23.7* 19.8* 20.6* HEMOGLOBIN g/dL 8.0* 8.0* 8.4* 7.5* 7.0* 6.5* HEMATOCRIT % 25.6* 25.6* 25.9* 23.6* 21.8* 20.3* PLATELETS K/mcL 252 252 258 246 193 199 LYMPHS PCT AUTO % 2.6 -- 3.5 3.7 3.9 MONO PCT AUTO % 4.8 -- 4.8 6.1 6.3 EOS PCT AUTO % 0.5 -- 1.7 2.5 3.3 Results from last 7 days Lab Units 07/17/24 0630 07/16/24 0645 07/15/24 0856 07/15/24 0656 07/14/24 0600 07/13/24 0638 07/12/24 0619 SODIUM mmol/L 133 135 132* 132* 134 132* 132* 132* POTASSIUM mmol/L 3.8 3.8 3.8 3.8 3.8 3.4* 3.6 3.7 CHLORIDE mmol/L 96 103 104 104 104 104 104 102 CO2 mmol/L 26 18* 16* 16* 15* 18* 18* 18* ANION GAP 11 14* 12* 12* 15* 10 10 12* BUN mg/dL 53* 77* 97* 97* 95* 84* 73* 70* CREATININE mg/dL 4.03* 5.37* 6.70* 6.70* 6.68* 5.84* 5.13* 4.64* CALCIUM mg/dL 7.7* 8.0* 8.4* 8.4* 8.3* 8.2* 8.1* 8.1* MAGNESIUM mg/dL 2.2 -- -- 2.2 2.0 1.9 1.8* PHOSPHORUS mg/dL 2.9 -- 4.2 -- -- 3.0 2.9 Results from last 7 days Lab Units 07/17/24 0757 07/17/24 0630 07/16/24 2030 07/16/24 1628 07/16/24 1042 POCT GLUCOSE mg/dL 258* -- 263* 170* 105* GLUCOSE mg/dL -- 293* -- -- -- Results from last 7 days Lab Units 07/12/24 0619 07/11/24 0621 AST unit/L 32 36 ALT unit/L 37 39 Imaging: Vascular US duplex lower extremity venous bilateral Narrative: Examination: Ultrasound duplex venous bilateral lower extremities. CLINICAL INDICATION: Bilateral leg edema. COMPARISON: Ultrasound left lower leg.. TECHNIQUE: Routine grayscale, color and Doppler imaging of bilateral lower leg veins were performed. FINDINGS: There is normal color flow, respiratory augmentation and Doppler waveform imaging of bilateral common femoral, superficial femoral, popliteal, gastrocnemius peroneal and right posterior tibial veins. There is occlusive clot in the left posterior tibial vein mid segment. Impression: Occlusive clot left mid posterior tibial vein. Otherwise rest of left leg and the entire right leg are negative for DVT -------- FINAL REPORT -------- Dictated By: Nicolás Bahena Dictated Date: 07/16/2024 12:28 ET Assigned Physician: Nicolás Bahena Reviewed and Electronically Signed By: Nicolás Bahena Signed Date: 07/16/2024 12:33 ET Workstation ID: [id number] Transcribed By: Self Edit Transcribed Date: 07/16/2024 12:28 ET Scheduled Medications PRN Medications IV Medications atorvastatin, 10 mg, Nightly insulin glargine, 8 Units, Nightly insulin lispro, 1-6 Units, Before meals & nightly insulin lispro, 2 Units, TID with meals pantoprazole, 40 mg, q AM AC polyetheylene glycol, 17 g, Daily sodium chloride, 10 mL, BID acetaminophen, 650 mg, q6h PRN benzonatate, 100 mg, TID PRN dextrose 50%, 12.5 g, q15 min PRN dextrose 50%, 25 g, q15 min PRN dextrose, 15 g, q15 min PRN dextrose, 30 g, q15 min PRN glucagon injection, 1 mg, Once PRN heparin, 80 Units/kg, q6h PRN Or heparin, 40 Units/kg, q6h PRN hydrALAZINE, 10 mg, q6h PRN HYDROmorphone, 0.5 mg, q3h PRN naloxone, 0.04 mg, PRN ondansetron, 4 mg, q6h PRN oxyCODONE, 5 mg, q4h PRN artificial tears, 2 drop, q2h PRN sodium chloride, 10 mL, PRN sodium chloride, 42 mL/hr, PRN sodium chloride, 42 mL/hr, PRN heparin, Last Rate: 24.4 Units/kg/hr (07/17/24 0836) ASSESSMENT/PLAN: Mrs. Contreras is a 79 y.o. female with PMH of HTN, DM2, CKD 4, iron deficiency anemia, hyperlipidemia,and recent diagnosis of lung nodule with planned bronchoscopy and EBUS , she was brought into the hospital after wellness check was called to police by her daughter. Patient reportedly did not answerher calls. She was found on the ground unable to get up, she was confused initially and could not provide history. Patient was noted to be afebrile and hemodynamically stable without hypoxia labs demonstrated leukocytosis with hemoglobin 7.3 most recent hemoglobin 7.4 on 06/17/2024, RENE was noted with BUN 63 and creatinine 4(most recent creatinine 2 on 06/17/2024), calcium was somewhat elevated at 10.6 with corrected calcium around 12. High sensitive troponin was 80 with repeat 81, CK was 649. UA demonstrated proteinuria glucosuria large blood 7 WBCs 21 RBCs and negative bacteria. EKG showed sinus rhythm with first-degree AV block right bundle branch block, QTc 454. CT head showed no acute intracranial abnormality CT neck showed no cervical spine fracture, and chest x-ray was without acute findings. She was admitted, and initiated on IV fluids. # RENE -CKD4. Creatinine was 1.6-1.7 approximately 1 month prior to this presentation. It was 2 on 06/17/2024. She presented with creatinine 4.1, creatinine raised and never improved. Uncertain etiology, unlikely prerenal given her Cr did not improve with crystalloid and albumin. Renal US without evidence of obstruction. Renal team on board, evaluating for possible primary nephropathy, serologies requested for vasculitis. Serum electrophoresis did not show monoclonal spike. Given worsening renal function, patient started dialysis on 07/15/2024.. Appreciate renal recommendations continue to monitor labs, I&O's closely with Lopez catheter. # Hypokalemia, mild, resolved, patient is now on dialysis, adjust treatment to potassium level. # Anemia. History of iron deficiency anemia, reportedly in ED occult blood weakly positive. No major bleeding noted. She is hemodynamically stable. 1 unit was administered on admission with appropriate improvement in H&H. After admission has been trending down in the setting of blood draws and IV fluids with likely hemodilution, transfused a second unit of blood on 07/13 without complication, improved with transfusion and volume removal, will hold on further transfusion at this time, patienthas received IV iron by nephrology. # Distal left lower extremity DVT. The patient was evaluated for possible DVT in the setting of persistent leukocytosis without clear source and lower extremity edema, she was found to have a distal occlusive DVT in the left lower extremity, given her immobility, suspected cancer I think we need toanticoagulate her, she was receiving DVT prophylaxis with mechanical means only because of acute anemia and occult blood in the stool on admission, however, there is no evidence of GI bleed so far through the hospital stay, she is at high risk for progression of the DVT and embolization therefore anticoagulation was offered to the patient and her daughter at bedside, they are agreeable with this,started heparin drip without bolus, they are fully aware of the risk of bleeding and the possibility of need for IVC filter if she shows signs of bleeding. So far tolerating wel, may transition to oral therapy prior to discharge. # Hypercalcemia mild , noted in the past most recently 05/31/2024 calcium was 11. She came in with level 10.6 with corrected calcium around 12. Calcium improved with IV fluids. Hold calcium supplements. PTH is low. ? Malignancy related. # Metabolic encephalopathy likely multifactorial, per my discussion with her family the patient wasvery confused upon admission, this was confirmed by admitting provider, this is most likely secondary to hypercalcemia and hyponatremia, currently resolved. Patient fully alert and involved in her care. # RUL pulmonay nodules/right lung mass-status post CT-guided biopsy 05/23/2024 which was nondiagnostic, referred to thoracic and plan is for endoscopy with EBUS, I contacted the thoracic surgery group to let them know the patient is in the hospital, they will reschedule procedure. # Leukocytosis - + nonproductive cough present for months, likely related to her lung mass, no recent cold symptoms, no fevers.UA/culture negative, respiratory viral panel negative. Blood cultures and urine studies without growth. Procalcitonin is elevated but nonspecific in the setting of severe renal dysfunction. Patient hemodynamically stable, CT scan of the chest shows no evidence of infiltrates, no obvious source, this was discussed with the patient and her daughter at bedside. Patient haslikely lung cancer, this may be associated to leukocytosis, continue to monitor, no indication for antibiotics at this time. Remains afebrile and hemodynamically stable. Patient has a small DVT in the left calf and this may be contributing to leukocytosis some degree. #Traumatic rhabdomyolysis due to recent fall, CK normalized after admission. # Mildly elevated TSH, likely subclinical hypothyroidism, free T4 is within normal limits, free T3 is slightly low, this can be reevaluated as an outpatient after acute illness has resolved. #DM2 with diabetic nephropathy -reportedly metformin recently stopped due to renal function she takes glipizide 10 daily. Has been uncontrolled on insulin/scale along, started basal and prandial withimprovement. # Hyperlipidemia on statin # HTN. Lisinopril on hold due to RENE. Hydralazine as needed. Monitor BP, trending in the upper side. No changes today. Disposition: Continue dialysis Thursday DVT ppx -start anticoagulation with heparin drip and monitor closely for signs of bleeding. Code status - Full Dispo - pending clinical improvement HCP -Daughter Dennise [phone], she was updated at bedside today. 45 minutes were spent in patient care including [id number] time, chart review, discussion with providers, documentation, medical orderly. High complexity medical decision making. Health Care proxy with Phone number: Paul Contreras Jr (Son) Disclaimer: Speech recognition software was utilized to dictate portions of this document. Errors in e commerce marketing analyst may be present. Please call / cortext me if any questions. Portions of this note such ROS, Exam, Assessment and Plan were copy pasted from previous notes. Information was reviewed and changes were made accordingly. I agree with above mentioned information * Pau Awad RN - 07/17/2024 5:14 AM EST Goals: Identify possible barriers to meeting goals/advancing plan of care: heparin gtt Stability of the patient: Moderately Unstable - Medium risk of patient condition declining or worsening End of Shift Summary: Problem: Falls: Fall Risk (Adult IP BH) Goal: (Goal) Patient will experience maximum safety and reduce risk for falls. Outcome: Progressing Goal: Patient will not fall or injure themselves during hospitalization. Outcome: Progressing Problem: Balance Goal: Patient will demonstrate Intervention to enhance balance for safe completion of daily activities Outcome: Progressing Goal: Patient will maintain balance Outcome: Progressing Goal: Patient will maintain balance to allow for safe mobility Outcome: Progressing Goal: Patient will maintain standing and sitting balance to allow for completion of daily activities Outcome: Progressing Goal: Patient will tolerate standing Outcome: Progressing Goal: Maintains dynamic standing balance with upper extremity support Outcome: Progressing Goal: Maintains dynamic standing balance without upper extremity support Outcome: Progressing Goal: Maintains static standing balance with upper extremity support Outcome: Progressing Goal: Maintains static standing balance without upper extremity support Outcome: Progressing Goal: Maintains static sitting balance with upper extremity support Outcome: Progressing Goal: Maintains static sitting balance without upper extremity support Outcome: Progressing Goal: Maintains dynamic sitting balance with upper extremity support Outcome: Progressing Goal: Maintains dynamic sitting balance without upper extremity support Outcome: Progressing Problem: Mobility Goal: Patient will be able to go up and down a curb/step with the appropriate device Outcome: Progressing Goal: Patient will propel wheelchair household/community distances Outcome: Progressing Goal: Patient will demonstrate kitchen mobility Outcome: Progressing Goal: Patient will recall and demonstrate 3 out of 3 total hip precautions during mobility Outcome: Progressing Goal: Patient will ambulate community distance Outcome: Progressing Goal: Patient will propel wheelchair household distances Outcome: Progressing Goal: Patient will ambulate household distance Outcome: Progressing Goal: Patient will navigate 4-6 steps with rails/device Outcome: Progressing Goal: Patient will demonstrate safe mobility requirements Outcome: Progressing Goal: Patient will propel the wheelchair Outcome: Progressing Goal: Patient will ambulate Outcome: Progressing Goal: Patient will ambulate up and down a curb/step Outcome: Progressing Goal: Patient will ascend and descend four to six stairs Outcome: Progressing Goal: Patient will ascend and descend a flight of stairs Outcome: Progressing Goal: Mobility for amputee - patient will tolerate lying prone for 20 minutes 3 times per day Outcome: Progressing Problem: Safety Goal: Patient will adhere to precautions during ADL's and transfers Outcome: Progressing Goal: Patient will demonstrate safety requirements appropriate to situation/environment Outcome: Progressing Goal: Patient will utilize safety techniques Outcome: Progressing Goal: Patient locks brakes on wheelchair Outcome: Progressing Goal: Patient uses call light consistently to request assistance with transfers Outcome: Progressing Goal: Patient uses gait belt during all transfers Outcome: Progressing Goal: Patient will be weaned from video monitoring Outcome: Progressing Goal: Free from fall injury Outcome: Progressing Problem: Transfers Goal: Patient will transfer to car Outcome: Progressing Goal: Patient will transfer from one surface to another Outcome: Progressing Goal: Patient will demonstrate safe transfer techniques Outcome: Progressing Goal: Patient will transfer to commode Outcome: Progressing Goal: Patient will transfer to tub/shower Outcome: Progressing Goal: Patient will transfer from wheelchair to toilet Outcome: Progressing Goal: Transfer from bed to chair. Outcome: Progressing Goal: Patient to transfer to and from sit to supine Outcome: Progressing Goal: Patient will perform bed mobility Outcome: Progressing Goal: Patient will roll Outcome: Progressing Goal: Patient will transfer sit to and from stand Outcome: Progressing Goal: Patient will perform car transfer Outcome: Progressing Goal: Patient will perform toilet transfer Outcome: Progressing Goal: Patient will perform tub/shower transfer Outcome: Progressing Goal: Patient will follow hip precautions during transfers Outcome: Progressing Goal: Patient maintains weight bearing status during transfers Outcome: Progressing Problem: Pain Goal: Patient will manage pain with the appropriate technique/Intervention Outcome: Progressing Goal: Patient will demonstrate intervention for managing pain Outcome: Progressing Goal: Patient will reduce or eliminate use of analgesics Outcome: Progressing Goal: Pain is manageable through therapies Outcome: Progressing Goal: Patient will verbalize an acceptable level of pain Outcome: Progressing Goal: Patients pain is managed to allow active participation in daily activities Outcome: Progressing Goal: Patient will increase activity level Outcome: Progressing Goal: Patient verbalizes a reduction in pain level Outcome: Progressing * Kwesi Guido MD - 07/16/2024 6:35 PM EST Ana Contreras [birth year] 79 y.o. [id number] Kwesi Guido, * INTERVAL HISTORY: No events overnight SUBJECTIVE : Patient had dialysis this morning, ultrafiltration of 2 L. No fevers no chills, persistent dry cough, no nausea no vomiting,. No palpitation or dizziness, no chest pain or shortness of breath Patient has bilateral lower extremity edema Multiple family members were at bedside during exam, the patient did allow to be examined in the presence of family. Lopez catheter in place, draining clear yellow urine. Patient is legally blind. OBJECTIVE: Vitals: 07/16/24 1000 07/16/24 1005 07/16/24 1041 07/16/24 1447 BP: (!) 149/70 (!) 155/79 (!) 142/62 (!) 141/75 BP Location: Right arm Left arm Right arm Patient Position: Lying Lying Lying Pulse: 60 75 102 109 Resp: Temp: 36.7 ??C (98.1 ??F) 36.6 ??C (97.9 ??F) 36.7 ??C (98 ??F) TempSrc: Temporal Temporal Temporal SpO2: 99% 98% 96% Weight: Height: Temp (24hrs), Av.6 ??C (97.9 ??F), Min:36.3 ??C (97.3 ??F), Max:36.9 ??C (98.4 ??F) Intake/Output Summary (Last 24 hours) at 07/16/2024 1835 Last data filed at 07/16/2024 1700 Gross per 24 hour Intake -- Output 3400 ml Net -3400 ml Wt Readings from Last 1 Encounters: 07/16/24 0552 80.6 kg (177 lb 11.2 oz) 07/15/24 1850 81.5 kg (179 lb 10.8 oz) 07/15/24 0600 82.4 kg (181 lb 9.6 oz) 07/14/24 0600 83.5 kg (184 lb) 07/14/24 0332 83.6 kg (184 lb 4 oz) 07/13/24 0600 78.7 kg (173 lb 9.6 oz) 07/12/24 0555 77.9 kg (171 lb 12.8 oz) 07/11/24 0500 79.1 kg (174 lb 6.4 oz) 07/10/24 0500 81.8 kg (180 lb 4.8 oz) 07/09/24 0600 74.6 kg (164 lb 6.4 oz) 07/09/24 0021 72.6 kg (160 lb) PHYSICAL EXAM: Gen: Elderly female, NAD CV -RRR soft systolic murmur Lungs -decreased breath sounds, no increased work of breathing. Abd - Soft, non-tender, non-distended Extremities -mild LE edema bilaterally. No calf tenderness. Neuro - AO x3, no focal deficits, generalized weakness RESULTS: CBC BMP Results from last 7 days Lab Units 07/16/24 0645 07/15/24 0656 07/14/24 0600 07/13/24 0638 07/12/24 0619 WBC AUTO K/mcL 27.6* 23.7* 19.8* 20.6* 21.8* HEMOGLOBIN g/dL 8.4* 7.5* 7.0* 6.5* 7.2* HEMATOCRIT % 25.9* 23.6* 21.8* 20.3* 22.6* PLATELETS K/mcL 258 246 193 199 206 LYMPHS PCT AUTO % -- 3.5 3.7 3.9 2.7 MONO PCT AUTO % -- 4.8 6.1 6.3 5.8 EOS PCT AUTO % -- 1.7 2.5 3.3 2.8 Results from last 7 days Lab Units 07/16/24 0645 07/15/24 0856 07/15/24 0656 07/14/24 0600 07/13/24 0638 07/12/24 0619 07/11/24 0621 07/10/24 0516 SODIUM mmol/L 135 132* 132* 134 132* 132* 132* < > 133 POTASSIUM mmol/L 3.8 3.8 3.8 3.8 3.4* 3.6 3.7 < > 3.8 CHLORIDE mmol/L 103 104 104 104 104 104 102 < > 105 CO2 mmol/L 18* 16* 16* 15* 18* 18* 18* < > 20* ANION GAP 14* 12* 12* 15* 10 10 12* < > 8 BUN mg/dL 77* 97* 97* 95* 84* 73* 70* < > 65* CREATININE mg/dL 5.37* 6.70* 6.70* 6.68* 5.84* 5.13* 4.64* < > 4.19* CALCIUM mg/dL 8.0* 8.4* 8.4* 8.3* 8.2* 8.1* 8.1* < > 8.5 MAGNESIUM mg/dL -- -- 2.2 2.0 1.9 1.8* -- 1.8* PHOSPHORUS mg/dL -- 4.2 -- -- 3.0 2.9 -- -- PTH pcg/mL -- -- -- -- -- -- -- 10.5* < > = values in this interval not displayed. Results from last 7 days Lab Units 07/16/24 1628 07/16/24 1042 07/16/24 0645 07/15/24202507/15/24 1630 POCT GLUCOSE mg/dL 170* 105* -- 93 92 GLUCOSE mg/dL -- -- 100 -- -- Results from last 7 days Lab Units 07/12/24 0619 07/11/24 0621 AST unit/L 32 36 ALT unit/L 37 39 Imaging: Vascular US duplex lower extremity venous bilateral Narrative: Examination: Ultrasound duplex venous bilateral lower extremities. CLINICAL INDICATION: Bilateral leg edema. COMPARISON: Ultrasound left lower leg.. TECHNIQUE: Routine grayscale, color and Doppler imaging of bilateral lower leg veins were performed. FINDINGS: There is normal color flow, respiratory augmentation and Doppler waveform imaging of bilateral common femoral, superficial femoral, popliteal, gastrocnemius peroneal and right posterior tibial veins. There is occlusive clot in the left posterior tibial vein mid segment. Impression: Occlusive clot left mid posterior tibial vein. Otherwise rest of left leg and the entire right leg are negative for DVT -------- FINAL REPORT -------- Dictated By: Nicolás Bahena Dictated Date: 07/16/2024 12:28 ET Assigned Physician: Nicolás Bahena Reviewed and Electronically Signed By: Nicolás Bahena Signed Date: 07/16/2024 12:33 ET Workstation ID: [id number] Transcribed By: Self Edit Transcribed Date: 07/16/2024 12:28 ET Scheduled Medications PRN Medications IV Medications atorvastatin, 10 mg, Nightly insulin glargine, 8 Units, Nightly insulin lispro, 1-6 Units, Before meals & nightly insulin lispro, 2 Units, TID with meals pantoprazole, 40 mg, q AM AC polyetheylene glycol, 17 g, Daily sodium chloride, 10 mL, BID acetaminophen, 650 mg, q6h PRN benzonatate, 100 mg, TID PRN dextrose 50%, 12.5 g, q15 min PRN dextrose 50%, 25 g, q15 min PRN dextrose, 15 g, q15 min PRN dextrose, 30 g, q15 min PRN glucagon injection, 1 mg, Once PRN heparin, 80 Units/kg, q6h PRN Or heparin, 40 Units/kg, q6h PRN hydrALAZINE, 10 mg, q6h PRN HYDROmorphone, 0.5 mg, q3h PRN naloxone, 0.04 mg, PRN ondansetron, 4 mg, q6h PRN oxyCODONE, 5 mg, q4h PRN artificial tears, 2 drop, q2h PRN sodium chloride, 10 mL, PRN sodium chloride, 42 mL/hr, PRN sodium chloride, 42 mL/hr, PRN heparin, Last Rate: 18 Units/kg/hr (07/16/241826) ASSESSMENT/PLAN: Mrs. Contreras is a 79 y.o. female with PMH of HTN, DM2, CKD 4, iron deficiency anemia, hyperlipidemia,and recent diagnosis of lung nodule with planned bronchoscopy and EBUS , she was brought into the hospital after wellness check was called to police by her daughter. Patient reportedly did not answerher calls. She was found on the ground unable to get up, she was confused initially and could not provide history. Patient was noted to be afebrile and hemodynamically stable without hypoxia labs demonstrated leukocytosis with hemoglobin 7.3 most recent hemoglobin 7.4 on 06/17/2024, RENE was noted with BUN 63 and creatinine 4(most recent creatinine 2 on 06/17/2024), calcium was somewhat elevated at 10.6 with corrected calcium around 12. High sensitive troponin was 80 with repeat 81, CK was 649. UA demonstrated proteinuria glucosuria large blood 7 WBCs 21 RBCs and negative bacteria. EKG showed sinus rhythm with first-degree AV block right bundle branch block, QTc 454. CT head showed no acute intracranial abnormality CT neck showed no cervical spine fracture, and chest x-ray was without acute findings. She was admitted, and initiated on IV fluids. # RENE -CKD4 -creatinine was 1.6-1.7 approximately 1 month prior to this presentation. It was 2 on 06/17/2024. She presented with creatinine 4.1, creatinine continues to trend up. Uncertain etiology, unlikely prerenal given her Cr did not improve with crystalloid and albumin. Renal US without evidence of obstruction. Renal team on board, evaluating for possible primary nephropathy, serologies requested for vasculitis. Serum electrophoresis did not show monoclonal spike. Given worsening renal function, patient started dialysis on 07/15/2024.. Appreciate renal recommendations continue to monitor labs, I&O's closely with Lopez catheter. # Hypokalemia, mild, resolved, patient is now on dialysis, adjust treatment to potassium level. # Anemia -history of iron deficiency anemia, reportedly in ED occult blood weakly positive. No major bleeding noted. She is hemodynamically stable. 1 unit was administered on admission with appropriate improvement in H&H. After admission has been trending down in the setting of blood draws and IV fluids with likely hemodilution, transfused a second unit of blood on 07/13 without complication, improved with transfusion and volume removal, will hold on further transfusion at this time, patienthas received IV iron by nephrology. # Distal left lower extremity DVT. The patient was evaluated for possible DVT in the setting of persistent leukocytosis without clear source and lower extremity edema, she was found to have a distal occlusive DVT in the left lower extremity, given her immobility, suspected cancer I think we need toanticoagulate her, she was receiving DVT prophylaxis with mechanical means only because of acute anemia and occult blood in the stool on admission, however, there is no evidence of GI bleed so far through the hospital stay, she is at high risk for progression of the DVT and embolization therefore anticoagulation was offered to the patient and her daughter at bedside, they are agreeable with this,will start heparin drip without bolus, they are fully aware of the risk of bleeding and the possibility of need for IVC filter if she shows signs of bleeding. # Hypercalcemia mild -noted in the past most recently 05/31/2024 calcium was 11. She came in with level 10.6 with corrected calcium around 12. Calcium improved with IV fluids. Hold calcium supplements. PTH is low. ? Malignancy related. # Metabolic encephalopathy likely multifactorial, per my discussion with her family the patient wasvery confused upon admission, this was confirmed by admitting provider, this is most likely secondary to hypercalcemia and hyponatremia, currently resolved. Patient fully alert and involved in her care. # RUL pulmonay nodules/right lung mass-status post CT-guided biopsy 05/23/2024 which was nondiagnostic, referred to thoracic and plan is for endoscopy with EBUS, I contacted the thoracic surgery group to let them know the patient is in the hospital, they will reschedule procedure. # Leukocytosis - +nonproductive cough present for months, likely related to her lung mass, no recent cold symptoms, no fevers.UA/culture negative, respiratory viral panel negative. Blood cultures andurine studies without growth. Procalcitonin is elevated but nonspecific in the setting of severe renal dysfunction. Patient hemodynamically stable, CT scan of the chest shows no evidence of infiltrates, no obvious source, this was discussed with the patient and her daughter at bedside. Patient has likely lung cancer, this may be associated to leukocytosis, continue to monitor, no indication for antibiotics at this time. Remains afebrile and hemodynamically stable. Patient has a small DVT in theleft calf and this may be contributing to leukocytosis some degree. #Traumatic rhabdomyolysis due to recent fall, CK normalized after admission. # Mildly elevated TSH, likely subclinical hypothyroidism, free T4 is within normal limits, free T3 is slightly low, this can be reevaluated as an outpatient after acute illness has resolved. #DM2 with diabetic nephropathy -reportedly metformin recently stopped due to renal function she takes glipizide 10 daily. Has been uncontrolled on insulin/scale along, started basal and prandial withimprovement. # Hyperlipidemia -statin # HTN -lisinopril on hold due to RENE. Hydralazine as needed. Monitor BP, trending in the upper side. No changes today. Disposition: Starting dialysis DVT ppx -start anticoagulation with heparin drip and monitor closely for signs of bleeding. Code status - Full Dispo - pending clinical improvement HCP -Daughter Dennise [phone], she was updated at bedside today. 60 minutes were spent in patient care including [id number] time, chart review, discussion with providers, documentation, medical orderly. High complexity medical decision making. Health Care proxy with Phone number: Disclaimer: Speech recognition software was utilized to dictate portions of this document. Errors in e commerce marketing analyst may be present. Please call / cortext me if any questions. Portions of this note such ROS, Exam, Assessment and Plan were copy pasted from previous notes. Information was reviewed and changes were made accordingly. I agree with above mentioned information * Jolene Cardona RN - 07/16/2024 6:32 PM EST Goals: Identify possible barriers to meeting goals/advancing plan of care: DVT, kidney function tests Stability of the patient: Moderately Stable - Low risk of patient condition declining or worsening End of Shift Summary: Venous duplex showed left Leg DVT (see results review), Heparin gtt initiatedper order. Eye drops administered x3. Lopez cath put out 200 mL. * Mindy Katz MD - 07/16/2024 5:25 PM EST Images from the original note were not included. Progress Note CHIEF COMPLAINT F/u SUBJECTIVE Patient seen and examined Stated she felt slightly better MEDICAL HISTORY Past Medical History: Diagnosis Date Anemia Arthritis Blindness Decreased vision 11/29/2014 DX:Decreased vision Diabetes mellitus, type 2 ([facility]/HCC) 02/14/2014 DX:Diabetes mellitus, type 2 ([facility]) Family history of early CAD 03/01/2014 DX:Family history of early CAD Family history of factor V Leiden mutation 12/12/2015 DX:Family history of factor V Leiden mutation HL (hearing loss) Hyperlipidemia 02/14/2014 DX:Hyperlipidemia Hypertension 02/14/2014 DX:Hypertension Joint pain Lung nodule Microalbuminuria 09/22/2016 DX:Microalbuminuria Osteoporosis 02/14/2014 DX:Osteoporosis MEDICATIONS atorvastatin, 10 mg, oral, Nightly insulin glargine, 8 Units, subcutaneous, Nightly insulin lispro, 1-6 Units, subcutaneous, Before meals & nightly insulin lispro, 2 Units, subcutaneous, TID with meals pantoprazole, 40 mg, oral, q AM AC polyetheylene glycol, 17 g, oral, Daily sodium chloride, 10 mL, intravenous, BID PRN medications: acetaminophen, benzonatate, dextrose 50%, dextrose 50%, dextrose, dextrose, glucagon injection, hydrALAZINE, HYDROmorphone, naloxone, ondansetron, oxyCODONE, artificial tears, Insertperipheral IV AND Maintain IV access AND Saline lock IV AND sodium chloride AND sodium chloride, sodium chloride, sodium chloride OBJECTIVE Vital signs in last 24 hours: Visit Vitals BP (!) 141/75 (BP Location: Right arm, Patient Position: Lying) Pulse 109 Temp 36.7 ??C (98 ??F) (Temporal) Resp 18 Intake/Output last 24 hours: Intake/Output Summary (Last 24 hours) at 07/16/2024 1726 Last data filed at 07/16/2024 1005 Gross per 24 hour Intake -- Output 3200 ml Net -3200 ml Weights: Admission Weight: Weight: 72.6 kg (160 lb) Wt Readings from Last 3 Encounters: 07/16/24 80.6 kg (177 lb 11.2 oz) 06/17/24 76.2 kg (168 lb) 06/13/24 76.5 kg (168 lb 9.6 oz) Physical Exam: General: No acute distress HEENT: Normocephalic, atraumatic, anicteric Cardiovascular: S1 S2 normal Respiratory: unlabored Gl: soft non-distended Extremities: No cyanosis Neurological: Alert Integumentary: no rash Psych: Calm, cooperative LABS Results from last 7 days Lab Units 07/16/24 0645 07/15/24 0656 07/14/24 0600 WBC AUTO K/mcL 27.6* 23.7* 19.8* HEMOGLOBIN g/dL 8.4* 7.5* 7.0* HEMATOCRIT % 25.9* 23.6* 21.8* MCV FL 76.2* 75.9* 75.7* PLATELETS K/mcL 258 246 193 Results from last 7 days Lab Units 07/16/24 0645 07/15/24 0856 07/15/24 0656 CREATININE mg/dL 5.37* 6.70* 6.70* 6.68* BUN mg/dL 77* 97* 97* 95* SODIUM mmol/L 135 132* 132* 134 POTASSIUM mmol/L 3.8 3.8 3.8 3.8 CHLORIDE mmol/L 103 104 104 104 CO2 mmol/L 18* 16* 16* 15* Phosphorus Date Value Ref Range Status 07/15/2024 4.2 2.5 - 4.5 mg/dL Final 07/13/2024 3.0 2.5 - 4.5 mg/dL Final 07/12/2024 2.9 2.5 - 4.5 mg/dL Final PTH Date Value Ref Range Status 07/10/2024 10.5 (L) 18.5 - 88.0 pcg/mL Final 07/08/2024 6.5 (L) 18.5 - 88.0 pcg/mL Final Iron Date Value Ref Range Status 07/08/2024 20 (L) 40 - 150 mcg/dL Final Comment: Hemolysis present 05/31/2024 14 (L) 40 - 150 mcg/dL Final TIBC Date Value Ref Range Status 07/08/2024 186 (L) 250 - 450 mcg/dL Final 05/31/2024 278 250 - 450 mcg/dL Final Ferritin Date Value Ref Range Status 07/08/2024 708 (H) 8 - 252 ng/mL Final 05/31/2024 294 (H) 8 - 252 ng/mL Final No results found for: COLORUA , CLARITYUA , SPECGRAVUA , PHUA , PROTUA , GLUCOSEUA , KETONESUA , BILIRUBINUA , BLOODUA , UROBILINOGUA , NITRITEUA IMPRESSION and PLAN Acute kidney injury. RENE likely due to acute tubular injury. She has been adequately hydrated without significant improvement in renal function Though obstruction has been ruled out patient is retaining urine in the setting of pessary in place Patient was on MAK inhibitor lisinopril which would have contributed to her renal insufficiency. Patient is hypercalcemic and that could be a competent of hypercalcemia induced polyuria/RENE-most recent calcium was 8.1 Cannot rule out acute GN/interstitial disease Due to patient of fall CPK level was within normal limits Chronic kidney disease stage IIIb/IV at baseline in setting of longstanding hypertension diabetes with likely hypertensive/diabetic renal disease. Myeloma ruled out. Patient does not have any monoclonal gammopathy Hyponatremia which is hyperosmolar with serum osmolality about 300 Anemia which is iron deficient. We need to rule out myeloma. She could also have a component of erythropoietin deficiency Hypercalcemia. PTH is low consistent with malignancy related hypercalcemia Hypertension Right upper lobe pulmonary nodule -Avoid nephrotoxins, such as NSAIDs, iodinated contrast, and phosphate enema, as able. -Transfuse to hemoglobin above 7.0 -Follow-up calcium level -IV iron Ferrlecit x 5 doses given -Dose all mediations for appropriate eGFR -Follow-up renal function and electrolytes in a.m. -Lopez catheter with strict DAVID -Next dialysis will be on Thursday. Mindy Katz MD Cosigned by Chencho Wayne MD at 07/17/2024 10:05 AM EST * oLuis Welch RN - 07/16/2024 10:25 AM EST 07/16/24 1005 Vital Signs Patient Identification Yes Temp 36.7 ??C (98.1 ??F) Temp Source Temporal Heart Rate 75 Heart Rate Source Right;Brachial Resp 19 BP (!) 155/79 MAP (Device/Manual Entry) 103 mmHg MAP (Calculated) 104 mm Hg BP Method Automatic BP Location Right arm Patient Position Lying CO2 Monitor (mmHg) (n/a) Arterial Line BP (n/a) Arterial Line MAP (mmHg) (n/a) SpO2 99 % (Room air) Post-Hemodialysis Assessment Rinseback Volume (mL) 150 mL Total Liters Processed (L/min) 63.5 L/min Dialyzer Clearance Moderately streaked Duration of Treatment (minutes) 180 minutes Hemodialysis Output (mL) 2000 mL Patient Response to Treatment/Comments Pt tolerated 3.0 hr 2nd hemodialysis tx well. 2.0 L net fluid removed. No new complaints. Pt stable post-tx and at transport back to room. Report given to primary nurse Jolene Cardona RN, Next Hemodialysis tx Thursday07/18/2024 Weight (Unable to weight pt) * Elodia Smart RN - 07/16/2024 5:12 AM EST Goals: Identify possible barriers to meeting goals/advancing plan of care: Kidney function. Stability of the patient: Moderately Stable - Low risk of patient condition declining or worsening End of Shift Summary: Patient is having a repeat dialysis today. * Chencho Wayne MD - 07/15/2024 7:20 PM EST Images from the original note were not included. Progress Note CHIEF COMPLAINT F/u for worsening renal function SUBJECTIVE Patient seen and examined Overall feeling slightly worse. Patient has a Lopez in place but not passing much urine Family at the bedside MEDICAL HISTORY Past Medical History: Diagnosis Date Anemia Arthritis Blindness Decreased vision 11/29/2014 DX:Decreased vision Diabetes mellitus, type 2 (CMS/HCC) 02/14/2014 DX:Diabetes mellitus, type 2 (HCC) Family history of early CAD 03/01/2014 DX:Family history of early CAD Family history of factor V Leiden mutation 12/12/2015 DX:Family history of factor V Leiden mutation HL (hearing loss) Hyperlipidemia 02/14/2014 DX:Hyperlipidemia Hypertension 02/14/2014 DX:Hypertension Joint pain Lung nodule Microalbuminuria 09/22/2016 DX:Microalbuminuria Osteoporosis 02/14/2014 DX:Osteoporosis MEDICATIONS atorvastatin, 10 mg, oral, Nightly insulin glargine, 8 Units, subcutaneous, Nightly insulin lispro, 1-6 Units, subcutaneous, Before meals & nightly insulin lispro, 2 Units, subcutaneous, TID with meals pantoprazole, 40 mg, oral, q AM AC polyetheylene glycol, 17 g, oral, Daily sodium chloride, 10 mL, intravenous, BID PRN medications: acetaminophen, albumin human, benzonatate, dextrose 50%, dextrose 50%, dextrose, dextrose, glucagon injection, hydrALAZINE, HYDROmorphone, naloxone, ondansetron, oxyCODONE, artificial tears, Insert peripheral IV AND Maintain IV access AND Saline lock IV AND sodium chloride AND sodium chloride, sodium chloride, sodium chloride OBJECTIVE Vital signs in last 24 hours: Visit Vitals BP (!) 155/56 (BP Location: Left arm, Patient Position: Lying) Pulse 101 Temp 36.3 ??C (97.3 ??F) (Temporal) Resp 19 Intake/Output last 24 hours: Intake/Output Summary (Last 24 hours) at 07/15/2024 1920 Last data filed at 07/15/2024 1850 Gross per 24 hour Intake 230 ml Output 1400 ml Net -1170 ml Weights: Admission Weight: Weight: 72.6 kg (160 lb) Wt Readings from Last 3 Encounters: 07/15/24 81.5 kg (179 lb 10.8 oz) 06/17/24 76.2 kg (168 lb) 06/13/24 76.5 kg (168 lb 9.6 oz) Physical Exam: General: No acute distress HEENT: Normocephalic, atraumatic, anicteric Cardiovascular: S1 S2 normal Respiratory: unlabored Gl: soft non-distended Extremities: No cyanosis Neurological: Alert Integumentary: no rash Psych: Calm, cooperative LABS Results from last 7 days Lab Units 07/15/24 0656 07/14/24 0600 07/13/24 0638 WBC AUTO K/mcL 23.7* 19.8* 20.6* HEMOGLOBIN g/dL 7.5* 7.0* 6.5* HEMATOCRIT % 23.6* 21.8* 20.3* MCV FL 75.9* 75.7* 74.4* PLATELETS K/mcL 246 193 199 Results from last 7 days Lab Units 07/15/24 0856 07/15/24 0656 07/14/24 0600 CREATININE mg/dL 6.70* 6.70* 6.68* 5.84* BUN mg/dL 97* 97* 95* 84* SODIUM mmol/L 132* 132* 134 132* POTASSIUM mmol/L 3.8 3.8 3.8 3.4* CHLORIDE mmol/L 104 104 104 104 CO2 mmol/L 16* 16* 15* 18* Phosphorus Date Value Ref Range Status 07/15/2024 4.2 2.5 - 4.5 mg/dL Final 07/13/2024 3.0 2.5 - 4.5 mg/dL Final 07/12/2024 2.9 2.5 - 4.5 mg/dL Final PTH Date Value Ref Range Status 07/10/2024 10.5 (L) 18.5 - 88.0 pcg/mL Final 07/08/2024 6.5 (L) 18.5 - 88.0 pcg/mL Final Iron Date Value Ref Range Status 07/08/2024 20 (L) 40 - 150 mcg/dL Final Comment: Hemolysis present 05/31/2024 14 (L) 40 - 150 mcg/dL Final TIBC Date Value Ref Range Status 07/08/2024 186 (L) 250 - 450 mcg/dL Final 05/31/2024 278 250 - 450 mcg/dL Final Ferritin Date Value Ref Range Status 07/08/2024 708 (H) 8 - 252 ng/mL Final 05/31/2024 294 (H) 8 - 252 ng/mL Final No results found for: COLORUA , CLARITYUA , SPECGRAVUA , PHUA , PROTUA , GLUCOSEUA , KETONESUA , BILIRUBINUA , BLOODUA , UROBILINOGUA , NITRITEUA IMPRESSION and PLAN Acute kidney injury. RENE likely due to acute tubular injury. She has been adequately hydrated without significant improvement in renal function Though obstruction has been ruled out patient is retaining urine in the setting of pessary in place Patient was on MAK inhibitor lisinopril which would have contributed to her renal insufficiency. Patient is hypercalcemic and that could be a competent of hypercalcemia induced polyuria/RENE-most recent calcium was 8.1 Cannot rule out acute GN/interstitial disease Due to patient of fall CPK level was within normal limits Chronic kidney disease stage IIIb/IV at baseline in setting of longstanding hypertension diabetes with likely hypertensive/diabetic renal disease. Myeloma ruled out. Patient does not have any monoclonal gammopathy Hyponatremia which is hyperosmolar with serum osmolality about 300 Anemia which is iron deficient. We need to rule out myeloma. She could also have a component of erythropoietin deficiency Hypercalcemia. PTH is low consistent with malignancy related hypercalcemia Hypertension Right upper lobe pulmonary nodule -Avoid nephrotoxins, such as NSAIDs, iodinated contrast, and phosphate enema, as able. -Transfuse to hemoglobin above 7.0 -Follow-up calcium level -IV iron Ferrlecit x 5 doses given -Dose all mediations for appropriate eGFR -Follow-up renal function and electrolytes in a.m. -Lopez catheter with strict DAVID -Keep patient n.p.o. as he might need a permacath. Her renal function has worsened -I contacted to be placed today IR arrange for a permacath yesterday -Patient signed consent for dialysis yesterday Dialysis orders placed. First treatment today. Dialysis again in a.m. and on Thursday The patient needs long-term dialysis outpatient dialysis needs to be arranged Discussed with the patient and family at the bedside in detail Discussed with the medical team in detail about the patient Chencho Wayne MD * Louis Welch RN - 07/15/2024 6:50 PM EST 07/15/24 1850 Vital Signs Patient Identification Yes Temp 36.6 ??C (97.9 ??F) Temp Source Temporal Heart Rate 93 Heart Rate Source Right;Brachial Resp 18 BP (!) 167/86 MAP (Device/Manual Entry) 104 mmHg MAP (Calculated) 113 mm Hg BP Method Automatic BP Location Right arm Patient Position Lying CO2 Monitor (mmHg) (n/a) Arterial Line BP (n/a) Arterial Line MAP (mmHg) (n/a) SpO2 100 % (Room air) Post-Hemodialysis Assessment Rinseback Volume (mL) 150 mL Total Liters Processed (L/min) 26.5 L/min Dialyzer Clearance Moderately streaked Duration of Treatment (minutes) 120 minutes Hemodialysis Output (mL) 1000 mL Patient Response to Treatment/Comments Pt tolerated 2.0 hr 1st hemodialysis tx well. 1.0 L net fluid removed. No new complaints. Pt stable post-tx and at transport back to room. Report given to primary nurse Fang Sahu RN, Next Hemodialysis tx Thursday07/16/2024 Weight 81.5 kg (179 lb 10.8 oz) * Fang Sahu RN - 07/15/2024 6:41 PM EST Problem: Falls: Fall Risk (Adult IP ) Goal: (Goal) Patient will experience maximum safety and reduce risk for falls. Outcome: Progressing Goals: Identify possible barriers to meeting goals/advancing plan of care: none Stability of the patient: Moderately Stable - Low risk of patient condition declining or worsening End of Shift Summary: Pt alert and oriented x3, neuros intact. Pt denies pain and resting comfortably. Patient to IR today for permacath placement, tolerated well. Patient currently at dialysis at this time. * Kwesi Guido MD - 07/15/2024 6:05 PM EST Ana Chaparro Contreras [birth year] 79 y.o. [phone] Kwesi Guido, * INTERVAL HISTORY: No events overnight SUBJECTIVE : Lopez catheter placed yesterday, remains having low urinary volumes Creatinine trending up, going for dialysis today. No fevers chills, persistent cough, no nausea no vomiting, no urinary symptoms, has a Lopez catheter now No palpitation or dizziness, no chest pain or shortness of breath Patient was seen with her daughter at bedside. OBJECTIVE: Vitals: 07/15/24 1715 07/15/24 1730 07/15/24 1745 07/15/24 1800 BP: (!) 170/81 (!) 171/86 (!) 164/75 (!) 171/86 BP Location: Patient Position: Pulse: 91 101 80 95 Resp: Temp: TempSrc: SpO2: Weight: Height: Temp (24hrs), Av.8 ??C (98.3 ??F), Min:36.2 ??C (97.1 ??F), Max:37.3 ??C (99.1 ??F) Intake/Output Summary (Last 24 hours) at 07/15/2024 1805 Last data filed at 07/15/2024 1800 Gross per 24 hour Intake 230 ml Output 595 ml Net -365 ml Wt Readings from Last 1 Encounters: 07/15/24 0600 82.4 kg (181 lb 9.6 oz) 07/14/24 0600 83.5 kg (184 lb) 07/14/24 0332 83.6 kg (184 lb 4 oz) 07/13/24 0600 78.7 kg (173 lb 9.6 oz) 07/12/24 0555 77.9 kg (171 lb 12.8 oz) 07/11/24 0500 79.1 kg (174 lb 6.4 oz) 07/10/24 0500 81.8 kg (180 lb 4.8 oz) 07/09/24 0600 74.6 kg (164 lb 6.4 oz) 07/09/24 0021 72.6 kg (160 lb) PHYSICAL EXAM: Gen: Elderly female, NAD CV -RRR soft systolic murmur Lungs -decreased breath sounds, mild crackles in the bases Abd - Soft, non-tender, non-distended Extremities -mild LE edema Neuro - AO x3, no focal deficits, generalized weakness RESULTS: CBC BMP Results from last 7 days Lab Units 07/15/24 0656 07/14/24 0600 07/13/24 0638 07/12/24 0619 WBC AUTO K/mcL 23.7* 19.8* 20.6* 21.8* HEMOGLOBIN g/dL 7.5* 7.0* 6.5* 7.2* HEMATOCRIT % 23.6* 21.8* 20.3* 22.6* PLATELETS K/mcL 246 193 199 206 LYMPHS PCT AUTO % 3.5 3.7 3.9 2.7 MONO PCT AUTO % 4.8 6.1 6.3 5.8 EOS PCT AUTO % 1.7 2.5 3.3 2.8 Results from last 7 days Lab Units 07/15/24 0856 07/15/24 0656 07/14/24 0600 07/13/24 0638 07/12/24 0619 07/11/24 0621 07/10/24 0516 SODIUM mmol/L 132* 132* 134 132* 132* 132* < > 133 POTASSIUM mmol/L 3.8 3.8 3.8 3.4* 3.6 3.7 < > 3.8 CHLORIDE mmol/L 104 104 104 104 104 102 < > 105 CO2 mmol/L 16* 16* 15* 18* 18* 18* < > 20* ANION GAP 12* 12* 15* 10 10 12* < > 8 BUN mg/dL 97* 97* 95* 84* 73* 70* < > 65* CREATININE mg/dL 6.70* 6.70* 6.68* 5.84* 5.13* 4.64* < > 4.19* CALCIUM mg/dL 8.4* 8.4* 8.3* 8.2* 8.1* 8.1* < > 8.5 MAGNESIUM mg/dL -- 2.2 2.0 1.9 1.8* -- 1.8* PHOSPHORUS mg/dL 4.2 -- -- 3.0 2.9 -- -- PTH pcg/mL -- -- -- -- -- -- 10.5* < > = values in this interval not displayed. Results from last 7 days Lab Units 07/15/24 1630 07/15/24 1057 07/15/24 0856 07/15/24 0803 07/15/24 0656 POCT GLUCOSE mg/dL 92 98 -- 96 -- GLUCOSE mg/dL -- -- 80 80 -- 82 Results from last 7 days Lab Units 07/12/24 0619 07/11/24 0621 AST unit/L 32 36 ALT unit/L 37 39 Imaging: Scheduled Medications PRN Medications IV Medications atorvastatin, 10 mg, Nightly insulin glargine, 8 Units, Nightly insulin lispro, 1-6 Units, Before meals & nightly insulin lispro, 2 Units, TID with meals pantoprazole, 40 mg, q AM AC polyetheylene glycol, 17 g, Daily sodium chloride, 10 mL, BID acetaminophen, 650 mg, q6h PRN albumin human, 12.5 g, Once PRN benzonatate, 100 mg, TID PRN dextrose 50%, 12.5 g, q15 min PRN dextrose 50%, 25 g, q15 min PRN dextrose, 15 g, q15 min PRN dextrose, 30 g, q15 min PRN glucagon injection, 1 mg, Once PRN hydrALAZINE, 10 mg, q6h PRN HYDROmorphone, 0.5 mg, q3h PRN naloxone, 0.04 mg, PRN ondansetron, 4 mg, q6h PRN oxyCODONE, 5 mg, q4h PRN artificial tears, 2 drop, q2h PRN sodium chloride, 10 mL, PRN sodium chloride, 42 mL/hr, PRN sodium chloride, 42 mL/hr, PRN ASSESSMENT/PLAN: Mrs. Contreras is a 79 y.o. female with PMH of HTN, DM2, CKD 4, iron deficiency anemia, hyperlipidemia,and recent diagnosis of lung nodule with planned bronchoscopy and EBUS , she was brought into the hospital after wellness check was called to police by her daughter. Patient reportedly did not answerher calls. She was found on the ground unable to get up, she was confused initially and could not provide history. Patient was noted to be afebrile and hemodynamically stable without hypoxia labs demonstrated leukocytosis with hemoglobin 7.3 most recent hemoglobin 7.4 on 06/17/2024, RENE was noted with BUN 63 and creatinine 4(most recent creatinine 2 on 06/17/2024), calcium was somewhat elevated at 10.6 with corrected calcium around 12. High sensitive troponin was 80 with repeat 81, CK was 649. UA demonstrated proteinuria glucosuria large blood 7 WBCs 21 RBCs and negative bacteria. EKG showed sinus rhythm with first-degree AV block right bundle branch block, QTc 454. CT head showed no acute intracranial abnormality CT neck showed no cervical spine fracture, and chest x-ray was without acute findings. She was admitted, and initiated on IV fluids. # RENE -CKD4 -creatinine was 1.6-1.7 approximately 1 month prior to this presentation. It was 2 on 06/17/2024. She presented with creatinine 4.1, creatinine continues to trend up. Uncertain etiology, unlikely prerenal given her Cr did not improve with crystalloid and albumin. Renal US without evidence of obstruction. Renal team on board, evaluating for possible primary nephropathy, serologies requested for vasculitis. Given worsening renal function, patient will start dialysis today. Appreciate renal recommendations # Hypokalemia, mild, resolved, patient is now on dialysis, adjust treatment to potassium level. # Anemia -history of iron deficiency anemia, reportedly in ED occult blood weakly positive. No major bleeding noted. She is hemodynamically stable. 1 unit was administered on admission with appropriate improvement in H&H. After admission has been trending down in the setting of blood draws andIV fluids with likely hemodilution, transfused a second unit of blood on 07/13 without complication,improved slightly, will hold on further transfusion at this time, patient has received IV iron by nephrology. # Hypercalcemia mild -noted in the past most recently 05/31/2024 calcium was 11. She came in with level 10.6 with corrected calcium around 12. Calcium improved with IV fluids. Hold calcium supplements. PTH is low. ? Malignancy related. # Metabolic encephalopathy likely multifactorial, per my discussion with her son , the patient was very confused upon admission, this was confirmed by admitting provider, this is most likely secondary to hypercalcemia and hyponatremia, currently resolved. # RUL pulmonay nodules/right lung mass-status post CT-guided biopsy 05/23/2024 which was nondiagnostic, referred to thoracic and plan is for endoscopy with EBUS, I contacted the thoracic surgery group to let them know the patient is in the hospital, they will reschedule procedure. # Leukocytosis - +nonproductive cough present for some, no recent cold symptoms, no fevers.UA/culture negative, respiratory viral panel negative. Patient hemodynamically stable, CT scan of the chest shows no evidence of infiltrates, no obvious source, this was discussed with the patient and her daughter at bedside. Patient has likely lung cancer, this may be associated to leukocytosis, continue to monitor, no indication for antibiotics at this time. Remains afebrile and hemodynamically stable. #Traumatic rhabdomyolysis due to recent fall, CK normalized after admission. # Mildly elevated TSH, likely subclinical hypothyroidism, free T4 is within normal limits, free T3 is slightly low, this can be reevaluated as an outpatient after acute illness has resolved. #DM2 with diabetic nephropathy -reportedly metformin recently stopped due to renal function she takes glipizide 10 daily. Has been uncontrolled on insulin/scale along, started basal and prandial withimprovement. # Hyperlipidemia -statin # HTN -lisinopril on hold due to RENE. Hydralazine as needed. Monitor BP, trending in the upper side. No changes today. Disposition: Starting dialysis DVT ppx - SCD, avoiding heparin due to anemia 0B+ Code status - Full Dispo - pending clinical improvement HCP -Dr. Bowden [phone], she was updated at bedside today. Health Care proxy with Phone number: Disclaimer: Speech recognition software was utilized to dictate portions of this document. Errors in e commerce marketing analyst may be present. Please call / cortext me if any questions. Portions of this note such ROS, Exam, Assessment and Plan were copy pasted from previous notes. Information was reviewed and changes were made accordingly. I agree with above mentioned information * Katie Pepper RN - 07/15/2024 3:56 PM EST Images from the original note were not included. Wound Care Initial Consult Visit Date: 07/15/2024 Patient Name: Ana Contreras Date of : 1945 Reason for Consult: Wound RN Consult received to assess coccygeal/buttock area for pressure injury POA and recommend topical treatment. Wound History: Nutritional Status: Pertinent Labs: Albumin Date Value Ref Range Status 07/15/2024 3.3 3.2 - 5.0 g/dL Final Comment: Results verified by repeat testing Albumin, Serum Date Value Ref Range Status 07/08/2024 2.2 (L) 2.9 - 4.1 g/dL Final WBC Date Value Ref Range Status 07/15/2024 23.7 (H) 4.8 - 10.8 K/mcL Final WBC, Urine Date Value Ref Range Status 07/08/2024 7.3 (H) 0 - 4 /HPF Final Hemoglobin A1C Date Value Ref Range Status 05/31/2024 7.2 (H) <6.5 % Final Glucose POCT Date Value Ref Range Status 07/15/2024 98 70 - 100 mg/dL Final Wound Assessment: Wound Pressure Injury 07/14/24 Gluteal Cleft Inner;Right (Active) Wound Image 07/15/24 1117 Wound Bed Tissue Assessment Unable to assess 07/15/24 0800 Jennifer-Wound Assessment Unable to assess 07/15/24 08 Wound Length (cm) 0.5 cm 07/15/24 1117 Wound Width (cm) 1 cm 07/15/24 1117 Wound Surface Area (cm^2) 0.5 cm^2 07/15/24 1117 Wound Depth (cm) 0.1 cm 07/15/24 1117 Wound Volume (cm^3) 0.05 cm^3 07/15/24 1117 Treatments Cleansed 07/15/24 1117 Dressing Foam 07/15/24 1117 Dressing Changed New 07/15/24 1117 Dressing Status Clean;Dry;Intact 07/15/24 0504 Pressure Injury Stage 2 07/15/24 1117 Support Surface: Patient is on S3 bed. Her Christos scale score is 14 and at moderate risk. Assist patient with turning and repositioning q 2 hr and prn. Wound Summary Assessment: Coccygeal area with small pink areas and possibly healed stage 2 vs resolving stage 1. Wound Plan: Apply allevyn foam QOD and prn. 07/15/2024 3:56 PM EST * Akua Hall RN - 07/15/2024 11:34 AM EST DANITZA: 07/18-07/19 Barrier: creatinine worsening, will need HD line placement and initiation of HD Plan: STR * Isidra Florence - 07/14/2024 2:14 PM EST [facility] Physical Therapy Evaluation & Treatment PT Discharge Recommendations: correction facility placement Staff Recommendations for safe patient handling: Elissa transfers, CG gait w walker Precautions Medical Precautions: Fall Risk Safety Interventions: Call chavarria within reach, ID band on, Bed alarm, Side rails up x1 RUE Weight Bearing Status: Full LUE Weight Bearing Status: Full RLE Weight Bearing Status: Full LLE Weight Bearing Status: Full Fall prevention education provided including use of call light in hospital, use of appropriate assistive device, safe mobility techniques, and safety measures at home. PT Received On: 07/14/24 PT Start Time: 1130 PT Stop Time: 1200 PT Time Calculation (min): 30 min Precautions Medical Precautions: Fall Risk Safety Interventions: Call chavarria within reach RUE Weight Bearing Status: Full LUE Weight Bearing Status: Full RLE Weight Bearing Status: Full LLE Weight Bearing Status: Full Cognition Overall Cognitive Status: Within Functional Limits Arousal/Alertness: Appropriate responses to stimuli Orientation Level: Oriented X4 Following Commands: Follows one step commands consistently, Follows one step commands with increased time Safety Judgment: Good awareness of safety precautions Awareness of Errors: Good awareness of errors made Hearing: Intact Vision: Intact Speech: Intact Integumentary: intact History of Present Illness: Patient is a 79 y.o. female admitted to [facility] on 07/08/2024. Patient Active Problem List Diagnosis Hypertension Hyperlipidemia History of cancer of unknown primary site CKD (chronic kidney disease) stage 4, GFR 15-29 ml/min ([facility]) Iron deficiency anemia Impaired renal function Type 2 diabetes mellitus without complication, without long-term current use of insulin ([facility]) Lung mass Acute encephalopathy Past Medical History: Diagnosis Date Anemia Arthritis Blindness Decreased vision 11/29/2014 DX:Decreased vision Diabetes mellitus, type 2 ([facility]) 02/14/2014 DX:Diabetes mellitus, type 2 ([facility]) Family history of early CAD 03/01/2014 DX:Family history of early CAD Family history of factor V Leiden mutation 12/12/2015 DX:Family history of factor V Leiden mutation HL (hearing loss) Hyperlipidemia 02/14/2014 DX:Hyperlipidemia Hypertension 02/14/2014 DX:Hypertension Joint pain Lung nodule Microalbuminuria 09/22/2016 DX:Microalbuminuria Osteoporosis 02/14/2014 DX:Osteoporosis Past Surgical History: Procedure Laterality Date CATARACT EXTRACTION Bilateral 2020 PROCEDURE: HISTORICAL CATARACT REMOVAL OTHER SURGICAL HISTORY 05/2012 PROCEDURE: ---- OTHER ----; COMMENT: lumbar microdiscectomy Social History Home Living Environment: Home Living Type of Home: House Lives With: Alone Home Adaptive Equipment: Cane, Rollator Home Layout: One level Home Access: Stairs to enter without rails Entrance Stairs-Rails: (pole) Entrance Stairs-Number of Steps: 3 Bathroom Shower/Tub: Tub/shower unit Prior Function Level of [place]: Independent with mobility and functional transfers Ambulation Status: Household ambulator Indoor Mobility Assistance: Independent Stairs Assistance : Independent Prior Device Use: Cane Do you drive?: No Which is your dominant hand?: Right General Assessment 07/14/24 1130 PT Last Visit PT Received On 07/14/24 PT Time Calculation PT Start Time 1130 PT Stop Time 1200 PT Time Calculation (min) 30 min Precautions Medical Precautions Fall Risk Safety Interventions Call chavarria within reach RUE Weight Bearing Status Full LUE Weight Bearing Status Full RLE Weight Bearing Status Full LLE Weight Bearing Status Full Vital Signs Patient Identification Yes Pain Assessment Pain Assessment No/denies pain Cognition Overall Cognitive Status WFL Orientation Level Oriented X4 Following Commands Follows one step commands consistently;Follows one step commands with increased time Activity Tolerance Endurance Tolerates less than 10 min exercise, no significant change in vital signs Activity Tolerance Comments complained of feeling tired Static Sitting Balance Static Sitting-Level of Assistance Standby assistance Dynamic Sitting Balance Dynamic Sitting-Level of Assistance Contact guard Static Standing Balance Static Standing-Level of Assistance Contact guard Dynamic Standing Balance Dynamic Standing-Level of Assistance Contact guard Bed Mobility Rolling Right Assistance Minimum assistance Lying to Sitting Assistance Minimum assistance Transfers Sit to Stand Assistance Minimum assistance Chair/Bed to Chair/Bed Transfer Assistance Minimum assistance Toilet Transfer Assistance Minimum assistance Toilet Transfer Technique (to commode, needed help pulling up brief, couldnt let go of walker to help) Ambulation Walking Assistance Contact guard Device Rolling walker Distance Ambulated (ft) 20 Gait Training Gait Training Time Entry 15 Gait Training Activity 1 walked 15 ft to commode, took 5 min break to use bathroom, walked 5 ft to chair (walker and CG) Therapeutic Exercise Therapeutic Exercise Time Entry 15 Therapeutic Exercise Activity 1 7x LAQ in sitting (attempted 10x and pt was too tired) PT Assessment PT Assessment Results Decreased strength;Decreased range of motion;Decreased endurance;Impaired balance Prognosis Good Evaluation/Treatment Tolerance Patient limited by fatigue Medical Staff Made Aware Yes Plan Treatment/Interventions Gait training;Endurance training;ADL retraining;LE strengthening/ROM PT Plan Skilled PT PT Frequency 2-5 days per week PT Duration of Sessions 15-30 min per session PT Treatments per day 1 time per day PT Discharge Recommendations correction facility placement Equipment Recommended walker PT - Evaluation Status Complete PT - OK to Discharge Yes Treatment performed during evaluation: Gait Training Gait Training Time Entry: 15 Gait Training Activity 1: walked 15 ft to commode, took 5 min break to use bathroom, walked 5 ft tochair (walker and CG) Therapeutic Exercise Therapeutic Exercise Time Entry: 15 Therapeutic Exercise Activity 1: 7x LAQ in sitting (attempted 10x and pt was too tired) ADDITIONAL COMMENTS: Chart reviewed. RN clears pt for session. Pt agrees to participate and presented in bed upon PT arrival. All lines in place. Gait belt utilized throughout treatment to maximize safety. Medical precautions observed appropriately. Initiated education on the importance of PT, bed mobility safety, Transfer Safety, Ambulation Safety , Therapy Plan of Care, Home Safety, Energy Conservations strategies, and importance of OOB activity . Pt verbalized understanding. EXIT STATUS: Session ended with patient in chair, tray table and call light within reach, and RN made aware. Physical Therapy Assessment/Plan Handley A Contreras is a 79 y.o. female admitted to [facility] on 07/08/2024 for Hyponatremia [E87.1] Acute on chronic renal insufficiency [N28.9, N18.9] Acute encephalopathy [G93.40] Anemia, unspecified type [D64.9] . Pt presents with decreased BLE strength, balance deficits, decreased activity tolerance, and far below functional baseline. Pt performed bed mobility Minimal assist, Bedrail and Therapist assist, Transfers with Minimal assist, FWW and ambulates Contact guard with F WW20 ft . Pt will benefit from skilled acute PT during hospital stay to improve the deficits listedabove and optimize function. PT recommends correction facility placement when medically stablefor safe discharge and to optimize functional mobility and independence. Goals Pt will be able to ambulate 100ft with walker with supervision in one week. - Progressing Education Documentation Home Exercise Program, taught by Isidra Florence at 07/14/2024 2:08 PM. Learner: Patient Readiness: Eager Method: Explanation, Demonstration Response: Verbalizes Understanding, Demonstrated Understanding Mobility Training, taught by Isidra Florence at 07/14/2024 2:08 PM. Learner: Patient Readiness: Eager Method: Explanation, Demonstration Response: Verbalizes Understanding, Demonstrated Understanding Education Comments No comments found. Isidra Florence Cosigned by Prisca Goldman PT at 07/14/2024 2:32 PM EST Associated attestation - Prisca Goldman PT - 07/14/2024 2:32 PM EST PT was integrally and physically involved in the decision making, delivery on interventions, and ongoing assessment during the pt's care session. * Chencho Wayne MD - 07/14/2024 12:38 PM EST Images from the original note were not included. Progress Note CHIEF COMPLAINT F/u SUBJECTIVE Patient seen and examined Overall feeling the same. Patient retaining urine. Does have a pessary in place Discussed with the PCT and the patient's family at the bedside regarding the retention MEDICAL HISTORY Past Medical History: Diagnosis Date Anemia Arthritis Blindness Decreased vision 11/29/2014 DX:Decreased vision Diabetes mellitus, type 2 ([facility]) 02/14/2014 DX:Diabetes mellitus, type 2 ([facility]) Family history of early CAD 03/01/2014 DX:Family history of early CAD Family history of factor V Leiden mutation 12/12/2015 DX:Family history of factor V Leiden mutation HL (hearing loss) Hyperlipidemia 02/14/2014 DX:Hyperlipidemia Hypertension 02/14/2014 DX:Hypertension Joint pain Lung nodule Microalbuminuria 09/22/2016 DX:Microalbuminuria Osteoporosis 02/14/2014 DX:Osteoporosis MEDICATIONS albumin human, 25 g, intravenous, q6h GRISELDA atorvastatin, 10 mg, oral, Nightly ferric gluconate, 125 mg, intravenous, Daily insulin glargine, 8 Units, subcutaneous, Nightly insulin lispro, 1-6 Units, subcutaneous, Before meals & nightly insulin lispro, 2 Units, subcutaneous, TID with meals pantoprazole, 40 mg, oral, q AM AC polyetheylene glycol, 17 g, oral, Daily sodium chloride, 10 mL, intravenous, BID PRN medications: acetaminophen, dextrose 50%, dextrose 50%, dextrose, dextrose, glucagon injection,hydrALAZINE, HYDROmorphone, naloxone, ondansetron, oxyCODONE, artificial tears, Insert peripheral IV AND Maintain IV access AND Saline lock IV AND sodium chloride AND sodium chloride,sodium chloride, sodium chloride OBJECTIVE Vital signs in last 24 hours: Visit Vitals BP (!) 150/51 (BP Location: Right arm, Patient Position: Sitting) Pulse 100 Temp 36.6 ??C (97.9 ??F) (Oral) Resp 18 Intake/Output last 24 hours: Intake/Output Summary (Last 24 hours) at 07/14/2024 1238 Last data filed at 07/13/2024 2146 Gross per 24 hour Intake 610 ml Output 150 ml Net 460 ml Weights: Admission Weight: Weight: 72.6 kg (160 lb) Wt Readings from Last 3 Encounters: 07/14/24 83.5 kg (184 lb) 06/17/24 76.2 kg (168 lb) 06/13/24 76.5 kg (168 lb 9.6 oz) Physical Exam: General: No acute distress HEENT: Normocephalic, atraumatic, anicteric Cardiovascular: S1 S2 normal Respiratory: unlabored Gl: soft non-distended Extremities: No cyanosis Neurological: Alert Integumentary: no rash Psych: Calm, cooperative LABS Results from last 7 days Lab Units 07/14/24 0600 07/13/24 0638 07/12/24 0619 WBC AUTO K/mcL 19.8* 20.6* 21.8* HEMOGLOBIN g/dL 7.0* 6.5* 7.2* HEMATOCRIT % 21.8* 20.3* 22.6* MCV FL 75.7* 74.4* 74.1* PLATELETS K/mcL 193 199 206 Results from last 7 days Lab Units 07/14/24 0600 07/13/24 0638 07/12/24 0619 CREATININE mg/dL 5.84* 5.13* 4.64* BUN mg/dL 84* 73* 70* SODIUM mmol/L 132* 132* 132* POTASSIUM mmol/L 3.4* 3.6 3.7 CHLORIDE mmol/L 104 104 102 CO2 mmol/L 18* 18* 18* Phosphorus Date Value Ref Range Status 07/13/2024 3.0 2.5 - 4.5 mg/dL Final 07/12/2024 2.9 2.5 - 4.5 mg/dL Final PTH Date Value Ref Range Status 07/10/2024 10.5 (L) 18.5 - 88.0 pcg/mL Final 07/08/2024 6.5 (L) 18.5 - 88.0 pcg/mL Final Iron Date Value Ref Range Status 07/08/2024 20 (L) 40 - 150 mcg/dL Final Comment: Hemolysis present 05/31/2024 14 (L) 40 - 150 mcg/dL Final TIBC Date Value Ref Range Status 07/08/2024 186 (L) 250 - 450 mcg/dL Final 05/31/2024 278 250 - 450 mcg/dL Final Ferritin Date Value Ref Range Status 07/08/2024 708 (H) 8 - 252 ng/mL Final 05/31/2024 294 (H) 8 - 252 ng/mL Final No results found for: COLORUA , CLARITYUA , SPECGRAVUA , PHUA , PROTUA , GLUCOSEUA , KETONESUA , BILIRUBINUA , BLOODUA , UROBILINOGUA , NITRITEUA IMPRESSION and PLAN Acute kidney injury. RENE likely due to acute tubular injury. She has been adequately hydrated without significant improvement in renal function Though obstruction has been ruled out patient is retaining urine in the setting of pessary in place Patient was on MAK inhibitor lisinopril which would have contributed to her renal insufficiency. Patient is hypercalcemic and that could be a competent of hypercalcemia induced polyuria/RENE-most recent calcium was 8.1 Cannot rule out acute GN/interstitial disease Due to patient of fall CPK level was within normal limits Chronic kidney disease stage IIIb/IV at baseline in setting of longstanding hypertension diabetes with likely hypertensive/diabetic renal disease. We need to rule out myeloma and stations anemia and hypercalcemia Hyponatremia which is hyperosmolar with serum osmolality about 300 Anemia which is iron deficient. We need to rule out myeloma. She could also have a component of erythropoietin deficiency Hypercalcemia. PTH is low consistent with malignancy related hypercalcemia Hypertension Right upper lobe pulmonary nodule -Avoid nephrotoxins, such as NSAIDs, iodinated contrast, and phosphate enema, as able. -Transfuse to hemoglobin above 7.0 -Follow-up calcium level -IV iron Ferrlecit as ordered -Dose all mediations for appropriate eGFR -Follow-up renal function and electrolytes in a.m. -Lopez catheter with strict DAVID -Keep patient n.p.o. as he might need a permacath and dialysis tomorrow if renal function does not -I will contact IR arrange for a permacath tentatively. -Patient signed consent for dialysis I explained to her about the need for dialysis-will likely need dialysis if renal function does not improve with placement of Lopez catheter -Lasix as needed Discussed with the medical team and family at the bedside Discussed with the medical team in detail about the patient Chencho Wayne MD * Kwesi Guido MD - 07/14/2024 10:35 AM EST Ana Contreras 07/08/2024 1945 79 y.o. [id number] Kwesi Guido, * INTERVAL HISTORY: No events overnight, SUBJECTIVE : Met with patient and her daughter at bedside, per nursing the patient had a loose bowel movement this morning, no bleeding, patient is legally blind, denies any acute pain, no nausea or vomiting, appetite is fair, no urinary symptoms, has a dry cough intermittently which has caused some chest wall soreness at times, no chest pain or shortness of breath, no urinary symptoms. She has spent time sitting in the chair yesterday. Daughter reported the patient has a pessary but no reported vaginal discharge. OBJECTIVE: Vitals: 07/13/24200807/14/2433107/14/2459907/14/24 0817 BP: (!) 174/62 126/84 (!) 150/51 BP Location: Right arm Right arm Right arm Patient Position: Lying Lying Sitting Pulse: 101 101 100 Resp: Temp: 36.8 ??C (98.2 ??F) 37.2 ??C (99 ??F) 36.6 ??C (97.9 ??F) TempSrc: Temporal Oral SpO2: 98% 97% 98% Weight: 83.6 kg (184 lb 4 oz) 83.5 kg (184 lb) Height: Temp (24hrs), Av.8 ??C (98.2 ??F), Min:36.5 ??C (97.7 ??F), Max:37.2 ??C (99 ??F) Intake/Output Summary (Last 24 hours) at 07/14/2024 1035 Last data filed at 07/13/2024 2146 Gross per 24 hour Intake 610 ml Output 150 ml Net 460 ml Wt Readings from Last 1 Encounters: 07/14/24599 83.5 kg (184 lb) 07/14/24 033 83.6 kg (184 lb 4 oz) 07/13/24 06 78.7 kg (173 lb 9.6 oz) 07/12/24 0555 77.9 kg (171 lb 12.8 oz) 07/11/24 0500 79.1 kg (174 lb 6.4 oz) 07/10/24 0500 81.8 kg (180 lb 4.8 oz) 07/09/24 0600 74.6 kg (164 lb 6.4 oz) 07/09/24 0021 72.6 kg (160 lb) PHYSICAL EXAM: Gen: Chronically ill-appearing female, pale,, NAD Dry oral mucosa. CV -RRR, soft systolic murmur, slightly tachycardic lungs -CTAB, decreased breath sounds in the bases Abd - Soft, non-tender, non-distended Extremities - No LE edema, she may have some dependent edema in the buttock area Neuro - AO x3, legally blind, no focal weakness or numbness Pale skin, no rashes, no prosthetic hardware, no indwelling catheters RESULTS: CBC BMP Results from last 7 days Lab Units 07/14/24 0600 07/13/24 0638 07/12/24 0619 07/11/24 0621 WBC AUTO K/mcL 19.8* 20.6* 21.8* 18.4* HEMOGLOBIN g/dL 7.0* 6.5* 7.2* 7.4* HEMATOCRIT % 21.8* 20.3* 22.6* 23.7* PLATELETS K/mcL 193 199 206 211 LYMPHS PCT AUTO % 3.7 3.9 2.7 3.0 MONO PCT AUTO % 6.1 6.3 5.8 5.9 EOS PCT AUTO % 2.5 3.3 2.8 3.3 Results from last 7 days Lab Units 07/14/24 0600 07/13/24 0638 07/12/24 0619 07/11/24 0621 07/10/24 0516 07/08/24 1752 07/08/24 1110 SODIUM mmol/L 132* 132* 132* 130* 133 < > 126* POTASSIUM mmol/L 3.4* 3.6 3.7 3.7 3.8 < > 4.2 CHLORIDE mmol/L 104 104 102 102 105 < > 93* CO2 mmol/L 18* 18* 18* 19* 20* < > 21 ANION GAP 10 10 12* 9 8 < > 12* BUN mg/dL 84* 73* 70* 69* 65* < > 59* CREATININE mg/dL 5.84* 5.13* 4.64* 4.36* 4.19* < > 4.10* CALCIUM mg/dL 8.2* 8.1* 8.1* 8.2* 8.5 < > 10.6* MAGNESIUM mg/dL 2.0 1.9 1.8* -- 1.8* < > 2.1 PHOSPHORUS mg/dL -- 3.0 2.9 -- -- -- -- PTH pcg/mL -- -- -- -- 10.5* -- 6.5* < > = values in this interval not displayed. Results from last 7 days Lab Units 07/14/24 0819 07/14/24 0600 07/13/24 2053 07/13/24 1553 07/13/24 1058 POCT GLUCOSE mg/dL 72 -- 153* 115* 106* GLUCOSE mg/dL -- 69* -- -- -- Results from last 7 days Lab Units 07/12/24 0619 07/11/24 0621 07/08/24 1110 AST unit/L 32 36 57* ALT unit/L 37 39 39 Imaging: CT Chest wo Contrast Narrative: History: Abnormal chest radiograph. The patient underwent nondiagnostic CT-guided biopsyof the right apical lung nodule on 05/23/24. Comparison: Thoracic CT 06/17/24, 03/21/24 Technique: Helical volumetric imaging of the thorax was performed without IV contrast. DLP: 613.10 mGy/cm [employer] VCT Iterative reconstruction technique Findings: Respiratory motion artifact limits evaluation of the lungs, particularly the lower lobes. There is persistent irregular juxtapleural nodular opacity in the right lung apex which measures approximately 6 x 3 x 3 cm on the reformatted images, without significant change in appearance to the most recent study. A long, thin strand extends from the lesion caudally to the major fissure. No bone destruction is identified. Juxtapleural opacity in the left apex is minimal and unchanged, possibly scarring. There is minimaldependent atelectasis in both lower lobes. The trachea and central bronchial tree remain patent. Diffuse bronchial wall thickening is present,worst in the right upper lobe. Small bilateral pleural effusions layer dependently, new. No pericardial effusion is identified. Mild multichamber cardiomegaly is again seen, with severe, three-vessel coronary artery calcification. No mediastinal lymphadenopathy is seen. Evaluation of the brennen is limited in the absence of IV contrast. A small portion of the upper abdomen included on the lowest images through the thorax is without significant abnormality. No suspicious osseous lesion is seen. Impression: Impression: 1. No significant change in an irregular juxtapleural nodular opacity in the right lung apex. Malignancy is not excluded. 2. No developing lymphadenopathy. 3. Small bilateral pleural effusions, new. Telerad RYLEY ([id number]) -------- FINAL REPORT -------- Dictated By: Edilia Durbin Dictated Date: 07/12/2024 13:07 ET Assigned Physician: Edilia Durbin Reviewed and Electronically Signed By: Edilia Durbin Signed Date: 07/12/2024 13:19 ET Workstation ID: [id number] Transcribed By: Self Edit Transcribed Date: 07/12/2024 13:07 ET Scheduled Medications PRN Medications IV Medications albumin human, 25 g, q6h GRISELDA atorvastatin, 10 mg, Nightly ferric gluconate, 125 mg, Daily insulin glargine, 8 Units, Nightly insulin lispro, 1-6 Units, Before meals & nightly insulin lispro, 2 Units, TID with meals pantoprazole, 40 mg, q AM AC polyetheylene glycol, 17 g, Daily sodium chloride, 10 mL, BID acetaminophen, 650 mg, q6h PRN dextrose 50%, 12.5 g, q15 min PRN dextrose 50%, 25 g, q15 min PRN dextrose, 15 g, q15 min PRN dextrose, 30 g, q15 min PRN glucagon injection, 1 mg, Once PRN hydrALAZINE, 10 mg, q6h PRN HYDROmorphone, 0.5 mg, q3h PRN naloxone, 0.04 mg, PRN ondansetron, 4 mg, q6h PRN oxyCODONE, 5 mg, q4h PRN artificial tears, 2 drop, q2h PRN sodium chloride, 10 mL, PRN sodium chloride, 42 mL/hr, PRN sodium chloride, 42 mL/hr, PRN ASSESSMENT/PLAN: Mrs. Contreras is a 79 y.o. female with PMH of HTN, DM2, CKD 4, iron deficiency anemia, hyperlipidemia,and recent diagnosis of lung nodule with planned bronchoscopy and EBUS , she was brought into the hospital after wellness check was called to police by her daughter. Patient reportedly did not answerher calls. She was found on the ground unable to get up, she was confused initially and could not provide history. Patient was noted to be afebrile and hemodynamically stable without hypoxia labs demonstrated leukocytosis with hemoglobin 7.3 most recent hemoglobin 7.4 on 06/17/2024, RENE was noted with BUN 63 and creatinine 4(most recent creatinine 2 on 06/17/2024), calcium was somewhat elevated at 10.6 with corrected calcium around 12. High sensitive troponin was 80 with repeat 81, CK was 649. UA demonstrated proteinuria glucosuria large blood 7 WBCs 21 RBCs and negative bacteria. EKG showed sinus rhythm with first-degree AV block right bundle branch block, QTc 454. CT head showed no acute intracranial abnormality CT neck showed no cervical spine fracture, and chest x-ray was without acute findings. She was admitted, and initiated on IV fluids. # RENE -CKD4 -creatinine was 1.6-1.7 approximately 1 month prior to this presentation. It was 2 on 06/17/2024. She presented with creatinine 4.1, creatinine continues to trend up. Uncertain etiology, unlikely prerenal given her Cr did not improve with crystalloid and albumin. Renal US without evidence of obstruction. Renal team on board, evaluating for possible primary nephropathy, serologies requested for vasculitis. Given worsening renal function, patient may require acute dialysis during this admission. # Hypokalemia, mild, will hold on replacement until seen by nephrology in case given her very poor renal function. # Anemia -history of iron deficiency anemia, reportedly in ED occult blood weakly positive. No major bleeding noted. She is hemodynamically stable. 1 unit was administered on admission with appropriate improvement in H&H. After admission has been trending down in the setting of blood draws and IV fluids with likely hemodilution, transfused a second unit of blood on 07/13 without complication, improved slightly, will hold on further transfusion at this time, patient has received IV iron by nephrology. # Hypercalcemia mild -noted in the past most recently 05/31/2024 calcium was 11. She came in with level 10.6 with corrected calcium around 12. Calcium improved to 9.5 with IV fluids. Hold calcium supplements. PTH is low. ? Malignancy related. # Metabolic encephalopathy likely multifactorial, per my discussion with her son , the patient was very confused upon admission, this was confirmed by admitting provider, this is most likely secondary to hypercalcemia and hyponatremia, currently resolved. # RUL pulmonay nodules/right lung mass-status post CT-guided biopsy 05/23/2024 which was nondiagnostic, referred to thoracic and plan is for endoscopy with EBUS, I contacted the thoracic surgery group to let them know the patient is in the hospital, they will reschedule procedure. # Leukocytosis - +nonproductive cough present for some, no recent cold symptoms, no fevers.UA/culture negative, respiratory viral panel negative. Patient hemodynamically stable, CT scan of the chest shows no evidence of infiltrates, no obvious source, this was discussed with the patient and her daughter at bedside. Patient has likely lung cancer, this may be associated to leukocytosis, continue to monitor, no indication for antibiotics at this time. Remains afebrile and hemodynamically stable. #Traumatic rhabdomyolysis due to recent fall, CK normalized after admission. # Mildly elevated TSH, likely subclinical hypothyroidism, free T4 is within normal limits, free T3 is slightly low, this can be reevaluated as an outpatient after acute illness has resolved. #DM2 with diabetic nephropathy -reportedly metformin recently stopped due to renal function she takes glipizide 10 daily. Has been uncontrolled on insulin/scale along, started basal and prandial withimprovement. # Hyperlipidemia -statin # HTN -lisinopril on hold due to RENE. Hydralazine as needed. Monitor BP, trending in the upper side. No changes today. DVT ppx - SCD, avoiding heparin due to anemia 0B+ Code status - Full Dispo - pending clinical improvement HCP -Dr. Bowden [phone], she was updated at bedside today. Health Care proxy with Phone number: Disclaimer: Speech recognition software was utilized to dictate portions of this document. Errors in e commerce marketing analyst may be present. Please call / cortext me if any questions. Portions of this note such ROS, Exam, Assessment and Plan were copy pasted from previous notes. Information was reviewed and changes were made accordingly. I agree with above mentioned information * Sharon Solis RN - 07/14/2024 3:37 AM EST Goals: Identify possible barriers to meeting goals/advancing plan of care: Stability of the patient: Unstable - High likelihood or risk of patient condition declining or worsening End of Shift Summary: Problem: Falls: Fall Risk (Adult IP ) Goal: Patient will not fall or injure themselves during hospitalization. Outcome: Progressing * Melany Agarwal RN - 07/13/2024 5:20 PM EST Goals: Identify possible barriers to meeting goals/advancing plan of care: monitor kidney function, possible dialysis Problem: Falls: Fall Risk (Adult IP BH) Goal: (Goal) Patient will experience maximum safety and reduce risk for falls. 07/13/2024 1720 by Melany Eugene RN Outcome: Progressing 07/13/2024 1720 by Melany Eugene RN Outcome: Progressing Goal: Patient will not fall or injure themselves during hospitalization. 07/13/2024 1720 by Melany Eugene RN Outcome: Progressing 07/13/2024 1720 by Melany Eugene RN Outcome: Progressing Problem: Balance Goal: Patient will demonstrate Intervention to enhance balance for safe completion of daily activities 07/13/2024 1720 by Melany Eugene RN Outcome: Progressing 07/13/2024 1720 by Melany Eugene RN Outcome: Progressing Goal: Patient will maintain balance 07/13/2024 1720 by Melany Eugene RN Outcome: Progressing 07/13/2024 1720 by Melany Eugene RN Outcome: Progressing Goal: Patient will maintain balance to allow for safe mobility 07/13/2024 1720 by Melany Eugene RN Outcome: Progressing 07/13/2024 1720 by Melany Eugene RN Outcome: Progressing Goal: Patient will maintain standing and sitting balance to allow for completion of daily activities 07/13/2024 1720 by Melany Eugene RN Outcome: Progressing 07/13/2024 1720 by Melany Eugene RN Outcome: Progressing Goal: Patient will tolerate standing 07/13/2024 1720 by Melany Eugene RN Outcome: Progressing 07/13/2024 1720 by Melany Eugene RN Outcome: Progressing Goal: Maintains dynamic standing balance with upper extremity support 07/13/2024 1720 by Melany Eugene RN Outcome: Progressing 07/13/2024 1720 by Melany Eugene RN Outcome: Progressing Goal: Maintains dynamic standing balance without upper extremity support 07/13/2024 1720 by Melany H, RN Outcome: Progressing 07/13/2024 1720 by Melany Eugene, RN Outcome: Progressing Goal: Maintains static standing balance with upper extremity support 07/13/2024 1720 by Melany Eugene, RN Outcome: Progressing 07/13/2024 1720 by Melany Eugene, RN Outcome: Progressing Goal: Maintains static standing balance without upper extremity support 07/13/2024 1720 by Melany Eugene, RN Outcome: Progressing 07/13/2024 1720 by Melany Eugene, RN Outcome: Progressing Goal: Maintains static sitting balance with upper extremity support 07/13/2024 1720 by Melany Eugene, RN Outcome: Progressing 07/13/2024 1720 by Melany Eugene, RN Outcome: Progressing Goal: Maintains static sitting balance without upper extremity support 07/13/2024 1720 by Melany Eugene, RN Outcome: Progressing 07/13/2024 1720 by Melany Eugene, RN Outcome: Progressing Goal: Maintains dynamic sitting balance with upper extremity support 07/13/2024 1720 by Melany Eugene, RN Outcome: Progressing 07/13/2024 1720 by Melany Eugene, RN Outcome: Progressing Goal: Maintains dynamic sitting balance without upper extremity support 07/13/2024 1720 by Melany Eugene, RN Outcome: Progressing 07/13/2024 1720 by Melany Eugene RN Outcome: Progressing Problem: Mobility Goal: Patient will be able to go up and down a curb/step with the appropriate device 07/13/2024 1720 by Melany Eugene, RN Outcome: Progressing 07/13/2024 1720 by Melany Eugene RN Outcome: Progressing Goal: Patient will propel wheelchair household/community distances 07/13/2024 1720 by Melany Eugene, RN Outcome: Progressing 07/13/2024 1720 by Melany Eugene, RN Outcome: Progressing Goal: Patient will demonstrate kitchen mobility 07/13/2024 1720 by Melany Eugene, RN Outcome: Progressing 07/13/2024 1720 by Melany Eugene RN Outcome: Progressing Goal: Patient will recall and demonstrate 3 out of 3 total hip precautions during mobility 07/13/2024 1720 by Melany Eugene, RN Outcome: Progressing 07/13/2024 1720 by Melany Eugene RN Outcome: Progressing Goal: Patient will ambulate community distance 07/13/2024 1720 by Melany Eugene RN Outcome: Progressing 07/13/2024 1720 by Melany Eugene RN Outcome: Progressing Goal: Patient will propel wheelchair household distances 07/13/2024 1720 by Melany Eugene RN Outcome: Progressing 07/13/2024 1720 by Melany Eugene RN Outcome: Progressing Goal: Patient will ambulate household distance Outcome: Progressing Goal: Patient will navigate 4-6 steps with rails/device Outcome: Progressing Goal: Patient will demonstrate safe mobility requirements Outcome: Progressing Goal: Patient will propel the wheelchair Outcome: Progressing Goal: Patient will ambulate Outcome: Progressing Goal: Patient will ambulate up and down a curb/step Outcome: Progressing Goal: Patient will ascend and descend four to six stairs Outcome: Progressing Goal: Patient will ascend and descend a flight of stairs Outcome: Progressing Goal: Mobility for amputee - patient will tolerate lying prone for 20 minutes 3 times per day Outcome: Progressing Stability of the patient: Moderately Stable - Low risk of patient condition declining or worsening End of Shift Summary: patient resting comfortably with family at the bedside. Call chavarria within reach * Akua Hall RN - 07/13/2024 1:21 PM EST DANITZA: 07/15-07/16 Barrier: hgb 6.5, creatinine 5.13, nephrology following - may need HD Plan: PT recommending SNF * Chencho Wayne MD - 07/13/2024 11:53 AM EST Images from the original note were not included. Progress Note CHIEF COMPLAINT F/u SUBJECTIVE Patient seen and examined MEDICAL HISTORY Past Medical History: Diagnosis Date Anemia Arthritis Blindness Decreased vision 11/29/2014 DX:Decreased vision Diabetes mellitus, type 2 (CMS/HCC) 02/14/2014 DX:Diabetes mellitus, type 2 (HCC) Family history of early CAD 03/01/2014 DX:Family history of early CAD Family history of factor V Leiden mutation 12/12/2015 DX:Family history of factor V Leiden mutation HL (hearing loss) Hyperlipidemia 02/14/2014 DX:Hyperlipidemia Hypertension 02/14/2014 DX:Hypertension Joint pain Lung nodule Microalbuminuria 09/22/2016 DX:Microalbuminuria Osteoporosis 02/14/2014 DX:Osteoporosis MEDICATIONS atorvastatin, 10 mg, oral, Nightly ferric gluconate, 125 mg, intravenous, Daily insulin glargine, 8 Units, subcutaneous, Nightly insulin lispro, 1-6 Units, subcutaneous, Before meals & nightly insulin lispro, 2 Units, subcutaneous, TID with meals pantoprazole, 40 mg, oral, q AM AC polyetheylene glycol, 17 g, oral, Daily sodium chloride, 10 mL, intravenous, BID PRN medications: acetaminophen, dextrose 50%, dextrose 50%, dextrose, dextrose, glucagon injection,hydrALAZINE, HYDROmorphone, naloxone, ondansetron, oxyCODONE, artificial tears, Insert peripheral IV AND Maintain IV access AND Saline lock IV AND sodium chloride AND sodium chloride,sodium chloride, sodium chloride OBJECTIVE Vital signs in last 24 hours: Visit Vitals BP 137/54 (BP Location: Right arm, Patient Position: Sitting) Pulse 96 Temp 37 ??C (98.6 ??F) (Temporal) Resp 18 Intake/Output last 24 hours: Intake/Output Summary (Last 24 hours) at 07/13/2024 1153 Last data filed at 07/13/2024 1029 Gross per 24 hour Intake 420 ml Output 550 ml Net -130 ml Weights: Admission Weight: Weight: 72.6 kg (160 lb) Wt Readings from Last 3 Encounters: 07/13/24 78.7 kg (173 lb 9.6 oz) 06/17/24 76.2 kg (168 lb) 06/13/24 76.5 kg (168 lb 9.6 oz) Physical Exam: General: No acute distress HEENT: Normocephalic, atraumatic, anicteric Cardiovascular: S1 S2 normal Respiratory: unlabored Gl: soft non-distended Extremities: No cyanosis Neurological: Alert Integumentary: no rash Psych: Calm, cooperative LABS Results from last 7 days Lab Units 07/13/24 0638 07/12/24 0619 07/11/24 0621 WBC AUTO K/mcL 20.6* 21.8* 18.4* HEMOGLOBIN g/dL 6.5* 7.2* 7.4* HEMATOCRIT % 20.3* 22.6* 23.7* MCV FL 74.4* 74.1* 75.0* PLATELETS K/mcL 199 206 211 Results from last 7 days Lab Units 07/13/24 0638 07/12/24 0619 07/11/24 0621 CREATININE mg/dL 5.13* 4.64* 4.36* BUN mg/dL 73* 70* 69* SODIUM mmol/L 132* 132* 130* POTASSIUM mmol/L 3.6 3.7 3.7 CHLORIDE mmol/L 104 102 102 CO2 mmol/L 18* 18* 19* Phosphorus Date Value Ref Range Status 07/13/2024 3.0 2.5 - 4.5 mg/dL Final 07/12/2024 2.9 2.5 - 4.5 mg/dL Final PTH Date Value Ref Range Status 07/10/2024 10.5 (L) 18.5 - 88.0 pcg/mL Final 07/08/2024 6.5 (L) 18.5 - 88.0 pcg/mL Final Iron Date Value Ref Range Status 07/08/2024 20 (L) 40 - 150 mcg/dL Final Comment: Hemolysis present 05/31/2024 14 (L) 40 - 150 mcg/dL Final TIBC Date Value Ref Range Status 07/08/2024 186 (L) 250 - 450 mcg/dL Final 05/31/2024 278 250 - 450 mcg/dL Final Ferritin Date Value Ref Range Status 07/08/2024 708 (H) 8 - 252 ng/mL Final 05/31/2024 294 (H) 8 - 252 ng/mL Final No results found for: COLORUA , CLARITYUA , SPECGRAVUA , PHUA , PROTUA , GLUCOSEUA , KETONESUA , BILIRUBINUA , BLOODUA , UROBILINOGUA , NITRITEUA IMPRESSION and PLAN Acute kidney injury. RENE likely due to acute tubular injury. She has been adequately hydrated without significant improvement in renal function Obstruction has been ruled out. Patient was on MAK inhibitor lisinopril which would have contributed to her renal insufficiency. Patient is hypercalcemic and that could be a competent of hypercalcemia induced polyuria/RENE-most recent calcium was 8.1 Cannot rule out acute GN/interstitial disease Due to patient of fall CPK level was within normal limits Chronic kidney disease stage IIIb/IV at baseline in setting of longstanding hypertension diabetes with likely hypertensive/diabetic renal disease. We need to rule out myeloma and stations anemia and hypercalcemia Hyponatremia which is hyperosmolar with serum osmolality about 300 Anemia which is iron deficient. We need to rule out myeloma. She could also have a component of erythropoietin deficiency Hypercalcemia. PTH is low consistent with malignancy related hypercalcemia Hypertension Right upper lobe pulmonary nodule -Avoid nephrotoxins, such as NSAIDs, iodinated contrast, and phosphate enema, as able. -Review of spot urine for electrolytes protein [id number] Q [place] is not clearly pointing towards significant prerenal state Patient has significant hypoalbuminemia-we will give IV albumin 25% 100 mL every 6 hourly x 3 doses -Follow-up calcium level -Transfuse for hemoglobin less than 7.0. IV iron Ferrlecit as ordered -Dose all mediations for appropriate eGFR -Follow-up renal function and electrolytes in a.m. -Sodium level is already improved -1 dose of IV Lasix 40 mg Discussed with the medical team and family at the bedside Will hold off any procedure requiring anesthesia for now Discussed with the patient and patient family at the bedside (family meeting) in detail and the possibility of renal replacement therapy for renal function does not improve. No indication today They agree to have STACK ATTENDANT if she needs it Discussed with the medical team in detail about the patient Chencho Wayne MD * Kwesi Guido MD - 07/13/2024 10:44 AM EST Ana Contreras 07/08[birth year] 79 y.o. [id number] Kwesi Guido, * INTERVAL HISTORY: No events overnight SUBJECTIVE : Met with daughter at bedside Patient is more anemic No bleeding No fever or chills No cough or chest pain or shortness of breath Agreeable to repeat transfusion OBJECTIVE: Vitals: 07/12/24 2008 07/13/24 0346 07/13/24 0600 07/13/24 0811 BP: (!) 142/68 (!) 150/58 137/54 BP Location: Right arm Right arm Right arm Patient Position: Lying Lying Sitting Pulse: 100 102 96 Resp: 16 18 Temp: 37.2 ??C (99 ??F) 36.9 ??C (98.4 ??F) 37 ??C (98.6 ??F) TempSrc: Oral Oral Temporal SpO2: 98% 98% 98% Weight: 78.7 kg (173 lb 9.6 oz) Height: Temp (24hrs), Av.9 ??C (98.5 ??F), Min:36.6 ??C (97.9 ??F), Max:37.2 ??C (99 ??F) Intake/Output Summary (Last 24 hours) at 07/13/2024 1044 Last data filed at 07/13/2024 1029 Gross per 24 hour Intake 530 ml Output 550 ml Net -20 ml Wt Readings from Last 1 Encounters: 07/13/24 0600 78.7 kg (173 lb 9.6 oz) 07/12/24 0555 77.9 kg (171 lb 12.8 oz) 07/11/24 0500 79.1 kg (174 lb 6.4 oz) 07/10/24 0500 81.8 kg (180 lb 4.8 oz) 07/09/24 0600 74.6 kg (164 lb 6.4 oz) 07/09/24 0021 72.6 kg (160 lb) PHYSICAL EXAM: Gen: Frail, chronically ill-appearing, NAD CV -RRR no MGR Lungs -CTAB Abd - Soft, non-tender, non-distended Extremities - No LE edema Neuro - AO x3 RESULTS: CBC BMP Results from last 7 days Lab Units 07/13/24 0638 07/12/24 0619 07/11/24 0621 07/10/24 0516 WBC AUTO K/mcL 20.6* 21.8* 18.4* 16.9* HEMOGLOBIN g/dL 6.5* 7.2* 7.4* 7.6* HEMATOCRIT % 20.3* 22.6* 23.7* 24.4* PLATELETS K/mcL 199 206 211 277 LYMPHS PCT AUTO % 3.9 2.7 3.0 3.2 MONO PCT AUTO % 6.3 5.8 5.9 5.9 EOS PCT AUTO % 3.3 2.8 3.3 2.8 Results from last 7 days Lab Units 07/13/24 0638 07/12/24 0619 07/11/24 0607/10/24 0516 07/09/24 0607/08/24 1752 07/08/24 1110 SODIUM mmol/L 132* 132* 130* 133 131* < > 126* POTASSIUM mmol/L 3.6 3.7 3.7 3.8 3.8 < > 4.2 CHLORIDE mmol/L 104 102 102 105 101 < > 93* CO2 mmol/L 18* 18* 19* 20* 21 < > 21 ANION GAP 10 12* 9 8 9 < > 12* BUN mg/dL 73* 70* 69* 65* 63* < > 59* CREATININE mg/dL 5.13* 4.64* 4.36* 4.19* 4.07* < > 4.10* CALCIUM mg/dL 8.1* 8.1* 8.2* 8.5 9.5 < > 10.6* MAGNESIUM mg/dL 1.9 1.8* -- 1.8* 2.0 -- 2.1 PHOSPHORUS mg/dL 3.0 2.9 -- -- -- -- -- PTH pcg/mL -- -- -- 10.5* -- -- 6.5* < > = values in this interval not displayed. Results from last 7 days Lab Units 07/13/24 0813 07/13/24 0638 07/12/24 2006 07/12/24 1553 07/12/24 1148 POCT GLUCOSE mg/dL 87 -- 125* 143* 176* GLUCOSE mg/dL -- 71 -- -- -- Results from last 7 days Lab Units 07/12/24 0619 07/11/24 0621 07/08/24 1110 AST unit/L 32 36 57* ALT unit/L 37 39 39 Imaging: Scheduled Medications PRN Medications IV Medications atorvastatin, 10 mg, Nightly ferric gluconate, 125 mg, Daily insulin glargine, 8 Units, Nightly insulin lispro, 1-6 Units, Before meals & nightly insulin lispro, 2 Units, TID with meals pantoprazole, 40 mg, q AM AC polyetheylene glycol, 17 g, Daily sodium chloride, 10 mL, BID acetaminophen, 650 mg, q6h PRN dextrose 50%, 12.5 g, q15 min PRN dextrose 50%, 25 g, q15 min PRN dextrose, 15 g, q15 min PRN dextrose, 30 g, q15 min PRN glucagon injection, 1 mg, Once PRN hydrALAZINE, 10 mg, q6h PRN HYDROmorphone, 0.5 mg, q3h PRN naloxone, 0.04 mg, PRN ondansetron, 4 mg, q6h PRN oxyCODONE, 5 mg, q4h PRN artificial tears, 2 drop, q2h PRN sodium chloride, 10 mL, PRN sodium chloride, 42 mL/hr, PRN sodium chloride, 42 mL/hr, PRN ASSESSMENT/PLAN: Mrs. Contreras is a 79 y.o. female with PMH of HTN, DM2, CKD 4, iron deficiency anemia, hyperlipidemia,and recent diagnosis of lung nodule with planned bronchoscopy and EBUS , she was brought into the hospital after wellness check was called to police by her daughter. Patient reportedly did not answerher calls. She was found on the ground unable to get up, she was confused initially and could not provide history. Patient was noted to be afebrile and hemodynamically stable without hypoxia labs demonstrated leukocytosis with hemoglobin 7.3 most recent hemoglobin 7.4 on 06/17/2024, RENE was noted with BUN 63 and creatinine 4(most recent creatinine 2 on 06/17/2024), calcium was somewhat elevated at 10.6 with corrected calcium around 12. High sensitive troponin was 80 with repeat 81, CK was 649. UA demonstrated proteinuria glucosuria large blood 7 WBCs 21 RBCs and negative bacteria. EKG showed sinus rhythm with first-degree AV block right bundle branch block, QTc 454. CT head showed no acute intracranial abnormality CT neck showed no cervical spine fracture, and chest x-ray was without acute findings. She was admitted, and initiated on IV fluids. # RENE -CKD4 -creatinine was 1.6-1.7 approximately 1 month prior to this presentation. It was 2 on 06/17/2024. She presented with creatinine 4.1. Conservatively, unlikely prerenal given her Cr did not improve with fluids so far. Renal US without evidence of obstruction. Nephrology consulted, appreciate recommendation, Renal function continued to worsen, IV fluids discontinued, on albumin, will transfuse 1 unit of PRBCs # Anemia -history of iron deficiency anemia, reportedly in ED occult blood weakly positive. No major bleeding noted. She is hemodynamically stable. 1 unit was administered on admission with appropriate improvement in H&H. Trended down somewhat . Monitor closely. Patient is iron deficient, started on IV iron by renal. Transfuse 1 unit of PRBC today. # Hypercalcemia mild -noted in the past most recently 05/31/2024 calcium was 11. She came in with level 10.6 with corrected calcium around 12. Calcium improved to 9.5 with IV fluids. Patient brought biphosphonate. Hold calcium supplements. PTH is low. ? Malignancy related. # Metabolic encephalopathy likely multifactorial, per my discussion with her son , the patient was very confused upon admission, this was confirmed by admitting provider, this is most likely secondary to hypercalcemia and hyponatremia and cannot rule out some component of septic encephalopathy. # RUL pulmonay nodules/right lung mass-status post CT-guided biopsy 05/23/2024 which was nondiagnostic, referred to thoracic and plan is for endoscopy with EBUS, I contacted the thoracic surgery group to let them know the patient is in the hospital # Leukocytosis - +nonproductive cough present for some, no recent cold symptoms, no fevers.UA/culture negative, respiratory viral panel negative. Monitor closely, low threshold for antibiotics but noindication currently. Patient hemodynamically stable, CT scan of the chest shows no evidence of infiltrates, no obvious source, this was discussed with the patient and her daughter at bedside. Improving today. #Traumatic rhabdomyolysis added to recent fall, CK normalized after admission. # Abnormal TSH - add Free T4,T3. #DM2 with diabetic nephropathy -reportedly metformin recently stopped due to renal function she takes glipizide 10 daily. Currently on sliding scale insulin. Still uncontrolled, use basal and prandial with close monitoring. # Hyperlipidemia -statin # HTN -lisinopril on hold due to RENE. Hydralazine as needed. Monitor BP, trending in the upper side. DVT ppx - SCD, avoiding heparin due to anemia 0B+ Code status - Full Dispo - pending clinical improvement HCP -Dr. Bowden [phone], she was updated at bedside today. Health Care proxy with Phone number: Disclaimer: Speech recognition software was utilized to dictate portions of this document. Errors in e commerce marketing analyst may be present. Please call / cortext me if any questions. Portions of this note such ROS, Exam, Assessment and Plan were copy pasted from previous notes. Information was reviewed and changes were made accordingly. I agree with above mentioned information * Kayleigh Laguna, PORTILLO - 07/13/2024 9:53 AM EST 07/13/2024 @ 9:53 AM EST Nutrition Follow Up Note Reason for RD Intervention: Assessment Type: RN Consult Reason for Assessment: High MST Score Anthropometrics: Height: 162.5 cm (63.98 ) Weight: 78.7 kg (173 lb 9.6 oz) Weight Method: Actual BMI (Calculated): 29.8 BMI Class: Overweight IBW (lbs): 120 Current Diet and Supplements: Dietary Orders (From admission, onward) Start Ordered 07/11/24 1133 Dietary nutrition supplements Two times daily (BID); [facility]; Diabetic Supplement Continuous Question Answer Comment Frequency Two times daily (BID) Location [facility] Supplements Diabetic Supplement 07/11/24 1132 07/11/24 1133 Adult diet [facility]; Cardiac, Diabetic; 75 gm carb/Meal; No Added Salt Diet effective now Question Answer Comment Location [facility] Diet Type (req) Cardiac Diet Type (req) Diabetic Diabetic 75 gm carb/Meal Diet Type (cardiac) No Added Salt 07/11/24 1132 History of presenting illness: Patient is a 79 y.o. female with a history of Past Medical History: Diagnosis Date Anemia Arthritis Blindness Decreased vision 11/29/2014 DX:Decreased vision Diabetes mellitus, type 2 ([facility]/HCC) 02/14/2014 DX:Diabetes mellitus, type 2 (HCC) Family history of early CAD 03/01/2014 DX:Family history of early CAD Family history of factor V Leiden mutation 12/12/2015 DX:Family history of factor V Leiden mutation HL (hearing loss) Hyperlipidemia 02/14/2014 DX:Hyperlipidemia Hypertension 02/14/2014 DX:Hypertension Joint pain Lung nodule Microalbuminuria 09/22/2016 DX:Microalbuminuria Osteoporosis 02/14/2014 DX:Osteoporosis Past Surgical History: Procedure Laterality Date CATARACT EXTRACTION Bilateral 2020 PROCEDURE: HISTORICAL CATARACT REMOVAL OTHER SURGICAL HISTORY 05/2012 PROCEDURE: ---- OTHER ----; COMMENT: lumbar microdiscectomy admitted 07/08/2024 with Acute encephalopathy. Food/Nutrition History: Previous Diet / Nutrition Education / Counseling: Per MST screeening, pt reports weight loss of 24-33 lb in past 3 months, and reports poor PO intake. Upon interview with pt on 07/13, she reports stable PO intake at home. Usually eats 3 meals per day. She is unsure of recent weight loss prior to admission, but feels like weight has been stable. Denies issues chewing/swallowing and food allergies Pt living by herself prior to admission, but has support from children. History of DM- takes glipizide at home. No noted food allergies. Appetite LEDGER CLERK: Poor Intake LEDGER CLERK: Stable Weight History: Wt Readings from Last 10 Encounters: 07/13/24 78.7 kg (173 lb 9.6 oz) 06/17/24 76.2 kg (168 lb) 06/13/24 76.5 kg (168 lb 9.6 oz) 06/06/24 76.4 kg (168 lb 6.4 oz) 05/30/24 76.7 kg (169 lb) 05/23/24 76.2 kg (168 lb) 05/13/24 77.6 kg (171 lb) 04/27/24 78.8 kg (173 lb 11.2 oz) 04/18/24 79.8 kg (176 lb) 04/12/24 80.3 kg (177 lb) Subjective Assessment: Pt seen for follow up. Pt and daughter state she has been having ~50% of meals. She has been drinking glucerna supplements. Reviewed preferences with pt and updated in [place]. Last BM 07/12. Nutrition-Related Lab Values: Results from last 7 days Lab Units 07/13/24 0813 07/13/24 0638 07/12/24 0807 07/12/24 0619 SODIUM mmol/L -- 132* -- 132* POTASSIUM mmol/L -- 3.6 -- 3.7 PHOSPHORUS mg/dL -- 3.0 -- 2.9 MAGNESIUM mg/dL -- 1.9 -- 1.8* CHLORIDE mmol/L -- 104 -- 102 CO2 mmol/L -- 18* -- 18* BUN mg/dL -- 73* -- 70* CREATININE mg/dL -- 5.13* -- 4.64* EGFR mL/min/1.73m2 -- 8* -- 9* CALCIUM mg/dL -- 8.1* -- 8.1* BILIRUBIN TOTAL mg/dL -- -- -- 0.5 ALK PHOS unit/L -- -- -- 157* ALT unit/L -- -- -- 37 AST unit/L -- -- -- 32 POCT GLUCOSE mg/dL 87 -- < > -- GLUCOSE mg/dL -- 71 -- 132* WBC AUTO K/mcL -- 20.6* -- 21.8* < > = values in this interval not displayed. Lab Results Component Value Date LIPASE <10 (L) 07/12/2024 Medications: atorvastatin, 10 mg, oral, Nightly ferric gluconate, 125 mg, intravenous, Daily insulin glargine, 8 Units, subcutaneous, Nightly insulin lispro, 1-6 Units, subcutaneous, Before meals & nightly insulin lispro, 2 Units, subcutaneous, TID with meals pantoprazole, 40 mg, oral, q AM AC polyetheylene glycol, 17 g, oral, Daily sodium chloride, 10 mL, intravenous, BID CONTINUOUS: PRN medications: acetaminophen, dextrose 50%, dextrose 50%, dextrose, dextrose, glucagon injection,hydrALAZINE, HYDROmorphone, naloxone, ondansetron, oxyCODONE, artificial tears, Insert peripheral IV AND Maintain IV access AND Saline lock IV AND sodium chloride AND sodium chloride,sodium chloride Food/Nutrition-Current Status: Intake Type: P.O. Appetite: Good Intake Amount (%): 50-75% Intake Assessment: Improved Nutrition Focused Physical Findings: Overall Appearance: No visual findings of muscle or fat depletion Skin: Skin intact per front end engineer Nutrition Diagnosis: Code Type: None Identified Status: Resolved Diagnosis: Unintentional Weight Loss Etiology: Changes in taste and appetite or preference Symptoms: pt report of 24-33 lb weight loss in 3 months prior to admission Nutrition Interventions: Diet Order, Medical Food Supplement, Vitamin/Mineral Supplement - Continue with 75 gm carb/meal, no added salt diet; adjust as needed on follow up - Continue with glucerna BID (likes chocolate flavor) - Follow weights, labs, I/O. - Hold off on ordering multivitamin, thiamine at this time given impaired renal function- assess onfollow up if pt still consuming <60% of meals Goals: Patient will consume greater than or equal to 75% meals., Patient will consume ONS., Monitor/control glucose levels, Improvement in renal labs., Maintain weight., Stooling appropriately., and Maintain skin integrity. Monitoring/Evaluation: Fluid/Beverage Intake, Food Intake, Medical Food Supp/Oral Nutrition Supp, Weight, Diet Order Follow Up: Nutrition Priority Level: Moderate Please consult nutrition if needed sooner. RD remains available and will continue to follow. Signature: Kayleigh Laguna RD * Pau Awad RN - 07/13/2024 1:56 AM EST Goals: improvement in labs Identify possible barriers to meeting goals/advancing plan of care: BUN/Creat levels Stability of the patient: Moderately Stable - Low risk of patient condition declining or worsening End of Shift Summary: Alert and pleasant, VSS, mo c/o pain, received IV albumin * Kwesi Guido MD - 07/12/2024 11:47 PM EST [facility] Provider Response Note PATIENT: ANA CONTRERAS : 1945 ADMIT DATE: 07/08/2024 2:44 PM DISCH DATE: RESPONDING PROVIDER #: [id number] PROVIDER RESPONSE TEXT: The patient has metabolic encephalopathy. QUERY TEXT: Encephalopathy is documented in the medical record. Please specify the type. H&P 07/08/2024 (3) Patient will be transferred to the care of [facility] staff for further management of their acute encephalopathy, fall. Acute encephalopathy S/p fall Hyponatremia Hypercalcemia -Patient was seen today with confusion was found down on the ground at home -Vitals are stable -Labs notable for sodium of 126, glucose of 265, BUN of 59, creatinine of 4.1, troponin of 80, 81, wbcc 18.9, hgb 7.3, hct 23.7, ua does not appear infected. -Suspect encephalopathy secondary to electrolyte abnormalities. Consults 07/09/2024 (1) Principal Problem: Acute encephalopathy Progress Notes 07/11/2024 (1) ASSESSMENT/PLAN: She was found on the ground unable to get up, she was confused initially and could not provide history.... Neuro - AO x3, legally blind, no focal weakness or numbness Contact: The patient's clinical indicators include: Options provided: -- Alcoholic -- Anoxic -- Due to medication(s) or drugs, Please specify the medication or drug(s) in the box. -- Hepatic -- Hypertensive -- Hypoxic -- Hypoxic ischemic, Specify if mild, moderate or severe. -- Metabolic -- Septic -- Toxic metabolic -- Wernicke?s -- Other - I will add my own diagnosis -- Disagree - Not applicable / Not valid Query created by: Desi Stern on 07/12/2024 11:10 AM Electronically signed by: KWESI GUIDO MD 07/12/2024 11:46 PM * Cait Shah RN - 07/12/2024 7:19 PM EST Problem: Falls: Fall Risk (Adult IP BH) Goal: (Goal) Patient will experience maximum safety and reduce risk for falls. Outcome: Progressing Problem: Balance Goal: Patient will demonstrate Intervention to enhance balance for safe completion of daily activities Outcome: Progressing Goals: Identify possible barriers to meeting goals/advancing plan of care: RENE; IV albumin started; Renal following Stability of the patient: Moderately Unstable - Medium risk of patient condition declining or worsening * Chencho Wayne MD - 07/12/2024 12:24 PM EST Images from the original note were not included. Progress Note CHIEF COMPLAINT F/u SUBJECTIVE Patient seen and examined MEDICAL HISTORY Past Medical History: Diagnosis Date Anemia Arthritis Blindness Decreased vision 11/29/2014 DX:Decreased vision Diabetes mellitus, type 2 (CMS/HCC) 02/14/2014 DX:Diabetes mellitus, type 2 (HCC) Family history of early CAD 03/01/2014 DX:Family history of early CAD Family history of factor V Leiden mutation 12/12/2015 DX:Family history of factor V Leiden mutation HL (hearing loss) Hyperlipidemia 02/14/2014 DX:Hyperlipidemia Hypertension 02/14/2014 DX:Hypertension Joint pain Lung nodule Microalbuminuria 09/22/2016 DX:Microalbuminuria Osteoporosis 02/14/2014 DX:Osteoporosis MEDICATIONS atorvastatin, 10 mg, oral, Nightly ferric gluconate, 125 mg, intravenous, Daily insulin glargine, 8 Units, subcutaneous, Nightly insulin lispro, 1-6 Units, subcutaneous, Before meals & nightly insulin lispro, 2 Units, subcutaneous, TID with meals pantoprazole, 40 mg, oral, q AM AC polyetheylene glycol, 17 g, oral, Daily sodium chloride, 10 mL, intravenous, BID PRN medications: acetaminophen, dextrose 50%, dextrose 50%, dextrose, dextrose, glucagon injection,hydrALAZINE, HYDROmorphone, naloxone, ondansetron, oxyCODONE, artificial tears, Insert peripheral IV AND Maintain IV access AND Saline lock IV AND sodium chloride AND sodium chloride,sodium chloride OBJECTIVE Vital signs in last 24 hours: Visit Vitals BP (!) 146/61 (BP Location: Right arm, Patient Position: Lying) Pulse 101 Temp 36.7 ??C (98.1 ??F) (Temporal) Resp 16 Intake/Output last 24 hours: Intake/Output Summary (Last 24 hours) at 07/12/2024 1224 Last data filed at 07/12/2024 0524 Gross per 24 hour Intake 1706.67 ml Output -- Net 1706.67 ml Weights: Admission Weight: Weight: 72.6 kg (160 lb) Wt Readings from Last 3 Encounters: 07/12/24 77.9 kg (171 lb 12.8 oz) 06/17/24 76.2 kg (168 lb) 06/13/24 76.5 kg (168 lb 9.6 oz) Physical Exam: General: No acute distress HEENT: Normocephalic, atraumatic, anicteric Cardiovascular: S1 S2 normal Respiratory: unlabored Gl: soft non-distended Extremities: No cyanosis Neurological: Alert Integumentary: no rash Psych: Calm, cooperative LABS Results from last 7 days Lab Units 07/12/24 0619 07/11/24 0621 07/10/24 0516 WBC AUTO K/mcL 21.8* 18.4* 16.9* HEMOGLOBIN g/dL 7.2* 7.4* 7.6* HEMATOCRIT % 22.6* 23.7* 24.4* MCV FL 74.1* 75.0* 74.4* PLATELETS K/mcL 206 211 277 Results from last 7 days Lab Units 07/12/24 0619 07/11/24 0621 07/10/24 0516 CREATININE mg/dL 4.64* 4.36* 4.19* BUN mg/dL 70* 69* 65* SODIUM mmol/L 132* 130* 133 POTASSIUM mmol/L 3.7 3.7 3.8 CHLORIDE mmol/L 102 102 105 CO2 mmol/L 18* 19* 20* Phosphorus Date Value Ref Range Status 07/12/2024 2.9 2.5 - 4.5 mg/dL Final PTH Date Value Ref Range Status 07/10/2024 10.5 (L) 18.5 - 88.0 pcg/mL Final 07/08/2024 6.5 (L) 18.5 - 88.0 pcg/mL Final Iron Date Value Ref Range Status 07/08/2024 20 (L) 40 - 150 mcg/dL Final Comment: Hemolysis present 05/31/2024 14 (L) 40 - 150 mcg/dL Final TIBC Date Value Ref Range Status 07/08/2024 186 (L) 250 - 450 mcg/dL Final 05/31/2024 278 250 - 450 mcg/dL Final Ferritin Date Value Ref Range Status 07/08/2024 708 (H) 8 - 252 ng/mL Final 05/31/2024 294 (H) 8 - 252 ng/mL Final No results found for: COLORUA , CLARITYUA , SPECGRAVUA , PHUA , PROTUA , GLUCOSEUA , KETONESUA , BILIRUBINUA , BLOODUA , UROBILINOGUA , NITRITEUA IMPRESSION and PLAN Acute kidney injury. RENE likely due to acute tubular injury. She has been adequately hydrated without significant improvement in renal function Obstruction has been ruled out. Patient was on MAK inhibitor lisinopril which would have contributed to her renal insufficiency. Patient is hypercalcemic and that could be a competent of hypercalcemia induced polyuria/RENE-most recent calcium was 8.1 Cannot rule out acute GN/interstitial disease Due to patient of fall CPK level was within normal limits Chronic kidney disease stage IIIb/IV at baseline in setting of longstanding hypertension diabetes with likely hypertensive/diabetic renal disease. We need to rule out myeloma and stations anemia and hypercalcemia Hyponatremia which is hyperosmolar with serum osmolality about 300 Anemia which is iron deficient. We need to rule out myeloma. She could also have a component of erythropoietin deficiency Hypercalcemia. PTH is low consistent with malignancy related hypercalcemia Hypertension Right upper lobe pulmonary nodule -Avoid nephrotoxins, such as NSAIDs, iodinated contrast, and phosphate enema, as able. -Have ordered spot urine for electrolytes protein creatinine-repeat -Mild acidosis. Off IV fluids at the present time-we will give IV albumin 25% 100 mL every 4 hourlyx 3 doses -Follow-up calcium level -Agree with transfusion. IV iron Ferrlecit as ordered -Dose all mediations for appropriate eGFR -Follow-up renal function and electrolytes in a.m. -Sodium level is already improved Discussed with the medical team and family at the bedside Chencho Wayne MD * Kwesi Guido MD - 07/12/2024 10:44 AM EST Ana Contreras 07/08/2024 1945 79 y.o. [id number] Kwesi Guido, * INTERVAL HISTORY: No events overnight, SUBJECTIVE : Patient is legally blind, denies any cough or chest pain, no nausea or vomiting, appetite is fair, no urinary symptoms, no joint pain or swelling, no urinary symptoms, no mental status changes, no neck stiffness, no skin rashes I met with the patient twice, initially with her sister at her bedside, in the afternoon with her daughter at bedside. OBJECTIVE: Vitals: 01/13/199907/12/2434807/12/24 0555 07/12/24 0805 BP: (!) 148/52 (!) 157/58 (!) 146/61 BP Location: Left arm Left arm Right arm Patient Position: Lying Lying Lying Pulse: 103 106 101 Resp: 16 16 16 Temp: 36.4 ??C (97.5 ??F) 36.6 ??C (97.9 ??F) 36.7 ??C (98.1 ??F) TempSrc: Temporal Temporal Temporal SpO2: 98% 98% 100% Weight: 77.9 kg (171 lb 12.8 oz) Height: Temp (24hrs), Av.6 ??C (97.8 ??F), Min:36.4 ??C (97.5 ??F), Max:36.7 ??C (98.1 ??F) Intake/Output Summary (Last 24 hours) at 07/12/2024 1044 Last data filed at 07/12/2024 0524 Gross per 24 hour Intake 1816.67 ml Output -- Net 1816.67 ml Wt Readings from Last 1 Encounters: 07/12/24 0555 77.9 kg (171 lb 12.8 oz) 07/11/24 0500 79.1 kg (174 lb 6.4 oz) 07/10/24 0500 81.8 kg (180 lb 4.8 oz) 07/09/24 0600 74.6 kg (164 lb 6.4 oz) 07/09/24 0021 72.6 kg (160 lb) PHYSICAL EXAM: Gen: Chronically ill-appearing female, pale,, NAD Dry oral mucosa. CV -RRR, soft systolic murmur Lungs -CTAB Abd - Soft, non-tender, non-distended Extremities - No LE edema Neuro - AO x3, legally blind, no focal weakness or numbness Pale skin, no rashes, no prosthetic hardware, no indwelling catheters RESULTS: CBC BMP Results from last 7 days Lab Units 07/12/24 0619 07/11/24 0621 07/10/24 0516 07/09/24 0625 WBC AUTO K/mcL 21.8* 18.4* 16.9* 18.4* HEMOGLOBIN g/dL 7.2* 7.4* 7.6* 8.3* HEMATOCRIT % 22.6* 23.7* 24.4* 26.1* PLATELETS K/mcL 206 211 277 333 LYMPHS PCT AUTO % 2.7 3.0 3.2 2.8 MONO PCT AUTO % 5.8 5.9 5.9 6.1 EOS PCT AUTO % 2.8 3.3 2.8 1.1 Results from last 7 days Lab Units 07/12/24 0619 07/11/24 0621 07/10/24 0516 07/09/24 0625 07/08/24 1752 07/08/24 1110 SODIUM mmol/L 132* 130* 133 131* < > 126* POTASSIUM mmol/L 3.7 3.7 3.8 3.8 < > 4.2 CHLORIDE mmol/L 102 102 105 101 < > 93* CO2 mmol/L 18* 19* 20* 21 < > 21 ANION GAP 12* 9 8 9 < > 12* BUN mg/dL 70* 69* 65* 63* < > 59* CREATININE mg/dL 4.64* 4.36* 4.19* 4.07* < > 4.10* CALCIUM mg/dL 8.1* 8.2* 8.5 9.5 < > 10.6* MAGNESIUM mg/dL 1.8* -- 1.8* 2.0 -- 2.1 PHOSPHORUS mg/dL 2.9 -- -- -- -- -- PTH pcg/mL -- -- 10.5* -- -- 6.5* < > = values in this interval not displayed. Results from last 7 days Lab Units 07/12/24 0807 07/12/24 0619 07/11/24200207/11/24 1551 07/11/24 1110 POCT GLUCOSE mg/dL 166* -- 257* 259* 301* GLUCOSE mg/dL -- 132* -- -- -- Results from last 7 days Lab Units 07/08/24 1110 AST unit/L 57* ALT unit/L 39 Imaging: US Retroperitoneal Complete Narrative: Renal ultrasound COMPARISON: None INDICATION: Urinary tract obstruction. TECHNIQUE: Grayscale and color flow imaging assessment of the kidneys bilaterally. FINDINGS: Right kidney measures 10cm. No evidence of hydronephrosis. Simple appearing 9 mm cyst is noted. Left kidney measures 10cm. No evidence of hydronephrosis. The bladder appears normal. Bladder jets not visualized. Impression: Normal appearance of the kidneys. -------- FINAL REPORT -------- Dictated By: Primo Dee Dictated Date: 07/10/2024 14:07 ET Assigned Physician: Primo Dee Reviewed and Electronically Signed By: Primo Dee Signed Date: 07/10/2024 14:08 ET Workstation ID: [id number] Transcribed By: Self Edit Transcribed Date: 07/10/2024 14:07 ET Scheduled Medications PRN Medications IV Medications atorvastatin, 10 mg, Nightly ferric gluconate, 125 mg, Daily insulin glargine, 8 Units, Nightly insulin lispro, 1-6 Units, Before meals & nightly insulin lispro, 2 Units, TID with meals pantoprazole, 40 mg, q AM AC polyetheylene glycol, 17 g, Daily sodium chloride, 10 mL, BID acetaminophen, 650 mg, q6h PRN dextrose 50%, 12.5 g, q15 min PRN dextrose 50%, 25 g, q15 min PRN dextrose, 15 g, q15 min PRN dextrose, 30 g, q15 min PRN glucagon injection, 1 mg, Once PRN hydrALAZINE, 10 mg, q6h PRN HYDROmorphone, 0.5 mg, q3h PRN naloxone, 0.04 mg, PRN ondansetron, 4 mg, q6h PRN oxyCODONE, 5 mg, q4h PRN artificial tears, 2 drop, q2h PRN sodium chloride, 10 mL, PRN sodium chloride, 42 mL/hr, PRN lactated Ringer's, Last Rate: 100 mL/hr (07/12/24 0525) ASSESSMENT/PLAN: Mrs. Contreras is a 79 y.o. female with PMH of HTN, DM2, CKD 4, iron deficiency anemia, hyperlipidemia,and recent diagnosis of lung nodule with planned bronchoscopy and EBUS , she was brought into the hospital after wellness check was called to police by her daughter. Patient reportedly did not answerher calls. She was found on the ground unable to get up, she was confused initially and could not provide history. Patient was noted to be afebrile and hemodynamically stable without hypoxia labs demonstrated leukocytosis with hemoglobin 7.3 most recent hemoglobin 7.4 on 06/17/2024, RENE was noted with BUN 63 and creatinine 4(most recent creatinine 2 on 06/17/2024), calcium was somewhat elevated at 10.6 with corrected calcium around 12. High sensitive troponin was 80 with repeat 81, CK was 649. UA demonstrated proteinuria glucosuria large blood 7 WBCs 21 RBCs and negative bacteria. EKG showed sinus rhythm with first-degree AV block right bundle branch block, QTc 454. CT head showed no acute intracranial abnormality CT neck showed no cervical spine fracture, and chest x-ray was without acute findings. She was admitted, and initiated on IV fluids. # RENE -CKD4 -creatinine was 1.6-1.7 approximately 1 month prior to this presentation. It was 2 on 06/17/2024. She presented with creatinine 4.1. Conservatively, unlikely prerenal given her Cr did not improve with fluids so far. Renal US without evidence of obstruction. Nephrology consulted, appreciate recommendation, continue. Further studies based on recs(of note serum protein electrophoresis sent on admission). This doctor is alert, will get albumin and monitor closely. # Anemia -history of iron deficiency anemia, reportedly in ED occult blood weakly positive. No major bleeding noted. She is hemodynamically stable. 1 unit was administered on admission with appropriate improvement in H&H. Trended down somewhat . Monitor closely. Patient is iron deficient, started on IV iron by renal. # Hypercalcemia mild -noted in the past most recently 05/31/2024 calcium was 11. She came in with level 10.6 with corrected calcium around 12. Calcium improved to 9.5 with IV fluids. Hold calcium supplements. PTH is low. ? Malignancy related. # Metabolic encephalopathy likely multifactorial, per my discussion with her son , the patient was very confused upon admission, this was confirmed by admitting provider, this is most likely secondary to hypercalcemia and hyponatremia and cannot rule out some component of septic encephalopathy. # RUL pulmonay nodules/right lung mass-status post CT-guided biopsy 05/23/2024 which was nondiagnostic, referred to thoracic and plan is for endoscopy with EBUS, I contacted the thoracic surgery group to let them know the patient is in the hospital # Leukocytosis - +nonproductive cough present for some, no recent cold symptoms, no fevers.UA/culture negative, respiratory viral panel negative. Monitor closely, low threshold for antibiotics but noindication currently. Patient hemodynamically stable, CT scan of the chest shows no evidence of infiltrates, no obvious source, this was discussed with the patient and her daughter at bedside. #Traumatic rhabdomyolysis added to recent fall, CK normalized after admission. # Abnormal TSH - add Free T4,T3. #DM2 with diabetic nephropathy -reportedly metformin recently stopped due to renal function she takes glipizide 10 daily. Currently on sliding scale insulin. Still uncontrolled, use basal and prandial with close monitoring. # Hyperlipidemia -statin # HTN -lisinopril on hold due to RENE. Hydralazine as needed. Monitor BP, trending in the upper side. DVT ppx - SCD, avoiding heparin due to anemia 0B+ Code status - Full Dispo - pending clinical improvement HCP -Dr. Bowden [phone], she was updated at bedside today. Health Care proxy with Phone number: Disclaimer: Speech recognition software was utilized to dictate portions of this document. Errors in e commerce marketing analyst may be present. Please call / cortext me if any questions. Portions of this note such ROS, Exam, Assessment and Plan were copy pasted from previous notes. Information was reviewed and changes were made accordingly. I agree with above mentioned information * Pau Awad RN - 07/12/2024 5:21 AM EST Goals: discharge Identify possible barriers to meeting goals/advancing plan of care: IVF Stability of the patient: Moderately Stable - Low risk of patient condition declining or worsening End of Shift Summary: Alert and pleasant, VSS, no complaints of pain , LR infusing at 100ml/hr. Call light in reach. * Jolene Cardona RN - 07/11/2024 7:06 PM EST Goals: Identify possible barriers to meeting goals/advancing plan of care: Abnormal labs Stability of the patient: Moderately Stable - Low risk of patient condition declining or worsening End of Shift Summary: LR infusing pr order. Pt denied pain/N/V/D. VSS * Kwesi Guido MD - 07/11/2024 5:44 PM EST Ana Chaparro Contreras [birth year] 79 y.o. [id number] Kwesi Guido, * INTERVAL HISTORY: No events overnight, discussed with nephrology, her son was met at bedside. SUBJECTIVE : Patient has no new complaints, she is wondering when she can go home, she is legally blind, ambulates with a walker to the bathroom with assistance, she is doing with thirsty but otherwise no complaints. OBJECTIVE: Vitals: 07/11/24 0413 07/11/24 0500 07/11/24 0816 07/11/24 1441 BP: (!) 153/61 (!) 146/58 (!) 142/64 BP Location: Right arm Right arm Left arm Patient Position: Sitting Lying Pulse: 102 110 98 Resp: 20 19 Temp: 37 ??C (98.6 ??F) 36.4 ??C (97.5 ??F) TempSrc: Temporal Oral SpO2: 98% 100% 99% Weight: 79.1 kg (174 lb 6.4 oz) Height: Temp (24hrs), Av.8 ??C (98.3 ??F), Min:36.4 ??C (97.5 ??F), Max:37.1 ??C (98.8 ??F) Intake/Output Summary (Last 24 hours) at 07/11/2024 1744 Last data filed at 07/11/2024 1136 Gross per 24 hour Intake 551.25 ml Output -- Net 551.25 ml Wt Readings from Last 1 Encounters: 07/11/24 0500 79.1 kg (174 lb 6.4 oz) 07/10/24 0500 81.8 kg (180 lb 4.8 oz) 07/09/24 0600 74.6 kg (164 lb 6.4 oz) 07/09/24 0021 72.6 kg (160 lb) PHYSICAL EXAM: Gen: Chronically ill-appearing female, pale,, NAD Dry oral mucosa. CV -RRR, soft systolic murmur Lungs -CTAB Abd - Soft, non-tender, non-distended Extremities - No LE edema Neuro - AO x3, legally blind, no focal weakness or numbness RESULTS: CBC BMP Results from last 7 days Lab Units 07/11/24 0621 07/10/24 0516 07/09/24 0625 07/08/24 2030 07/08/24 1110 WBC AUTO K/mcL 18.4* 16.9* 18.4* 20.5* 18.9* HEMOGLOBIN g/dL 7.4* 7.6* 8.3* 9.2* 7.3* HEMATOCRIT % 23.7* 24.4* 26.1* 30.0* 23.7* PLATELETS K/mcL 211 277 333 332 408* LYMPHS PCT AUTO % 3.0 3.2 2.8 -- 2.4 MONO PCT AUTO % 5.9 5.9 6.1 -- 7.0 EOS PCT AUTO % 3.3 2.8 1.1 -- 0.2 Results from last 7 days Lab Units 07/11/24 0621 07/10/24 0516 07/09/24 0625 07/08/24 2030 07/08/24 17507/08/24 1110 SODIUM mmol/L 130* 133 131* 130* 130* < > 126* POTASSIUM mmol/L 3.7 3.8 3.8 4.0 4.0 < > 4.2 CHLORIDE mmol/L 102 105 101 98 98 < > 93* CO2 mmol/L 19* 20* 21 22 22 < > 21 ANION GAP 9 8 9 10 10 < > 12* BUN mg/dL 69* 65* 63* 64* < > 59* CREATININE mg/dL 4.36* 4.19* 4.07* 4.32* < > 4.10* CALCIUM mg/dL 8.2* 8.5 9.5 10.3 < > 10.6* MAGNESIUM mg/dL -- 1.8* 2.0 -- -- 2.1 PTH pcg/mL -- 10.5* -- -- -- 6.5* < > = values in this interval not displayed. Results from last 7 days Lab Units 07/11/24 1551 07/11/24 1110 07/11/24 0817 07/11/24 0621 07/10/242032 POCT GLUCOSE mg/dL 259* 301* 191* -- 325* GLUCOSE mg/dL -- -- -- 174* -- Results from last 7 days Lab Units 07/08/24 1110 AST unit/L 57* ALT unit/L 39 Imaging: US Retroperitoneal Complete Narrative: Renal ultrasound COMPARISON: None INDICATION: Urinary tract obstruction. TECHNIQUE: Grayscale and color flow imaging assessment of the kidneys bilaterally. FINDINGS: Right kidney measures 10cm. No evidence of hydronephrosis. Simple appearing 9 mm cyst is noted. Left kidney measures 10cm. No evidence of hydronephrosis. The bladder appears normal. Bladder jets not visualized. Impression: Normal appearance of the kidneys. -------- FINAL REPORT -------- Dictated By: Primo Dee Dictated Date: 07/10/2024 14:07 ET Assigned Physician: Primo Dee Reviewed and Electronically Signed By: Primo Dee Signed Date: 07/10/2024 14:08 ET Workstation ID: [id number] Transcribed By: Self Edit Transcribed Date: 07/10/2024 14:07 ET Scheduled Medications PRN Medications IV Medications atorvastatin, 10 mg, Nightly ferric gluconate, 125 mg, Daily insulin glargine, 8 Units, Nightly insulin lispro, 1-6 Units, Before meals & nightly insulin lispro, 2 Units, TID with meals pantoprazole, 40 mg, q AM AC polyetheylene glycol, 17 g, Daily sodium chloride, 10 mL, BID acetaminophen, 650 mg, q6h PRN dextrose 50%, 12.5 g, q15 min PRN dextrose 50%, 25 g, q15 min PRN dextrose, 15 g, q15 min PRN dextrose, 30 g, q15 min PRN glucagon injection, 1 mg, Once PRN hydrALAZINE, 10 mg, q6h PRN HYDROmorphone, 0.5 mg, q3h PRN naloxone, 0.04 mg, PRN ondansetron, 4 mg, q6h PRN oxyCODONE, 5 mg, q4h PRN artificial tears, 2 drop, q2h PRN sodium chloride, 10 mL, PRN sodium chloride, 42 mL/hr, PRN lactated Ringer's, Last Rate: 100 mL/hr (07/11/24 1220) ASSESSMENT/PLAN: Ana Contreras is a 79 y.o. female with PMH of HTN, DM2, CKD 4, iron deficiency anemia, hyperlipidemia, and recent diagnosis of lung nodule with planned bronchoscopy and EBUS scheduled following week, who was brought into the hospital after wellness check was called to police by her daughter. Patient reportedly did not answer her calls. She was found on the ground unable to get up, she was confused initially and could not provide history. Patient was noted to be afebrile and hemodynamically stable without hypoxia labs demonstrated leukocytosis with hemoglobin 7.3 most recent hemoglobin 7.4 on 06/17/2024, RENE was noted with BUN 63 and creatinine 4(most recent creatinine 2 on 06/17/2024), calcium was somewhat elevated at 10.6 with corrected calcium around 12. High sensitive troponin was 80 with repeat 81, CK was 649. UA demonstrated proteinuria glucosuria large blood 7 WBCs 21 RBCs and negative bacteria. EKG showed sinus rhythm with first-degree AV block right bundle branch block, QTc 454. CT head showed no acute intracranial abnormality CT neck showed no cervical spine fracture, and chest x-ray was without acute findings. She was admitted, and initiated on IV fluids. # RENE -CKD4 -creatinine was 1.6-1.7 approximately 1 month prior to this presentation. It was 2 on 06/17/2024. She presented with creatinine 4.1. ??Prerenal vs other. Cre did not improve with fluids so far, she is still the pain in the right, receiving gentle hydration. Renal US without evidence of obstruction. Nephrology consulted, appreciate recommendation, continue. Further studies based on recs(of note serum protein electrophoresis sent on admission). # Anemia -history of iron deficiency anemia, reportedly in ED occult blood weakly positive. No major bleeding noted. She is hemodynamically stable. 1 unit was administered on admission with appropriate improvement in H&H. Trended down somewhat . Monitor closely. Patient is iron deficient, started on IV iron by renal. # Hypercalcemia mild -noted in the past most recently 05/31/2024 calcium was 11. She came in with level 10.6 with corrected calcium around 12. Calcium improved to 9.5 with IV fluids. Hold calcium supplements. PTH is low. ? Malignancy related. # RUL pulmonay nodules/right lung mass-status post CT-guided biopsy 05/23/2024 which was nondiagnostic, referred to thoracic and plan is for endoscopy with EBUS which is scheduled tentatively for t next week. # Leukocytosis - +nonproductive cough present for some, no recent cold symptoms, no fevers.UA/culture negative, respiratory viral panel negative. Monitor closely, low threshold for antibiotics but noindication currently. #Traumatic rhabdomyolysis added to recent fall, CK normalized after admission. # Abnormal TSH - add Free T4,T3. #DM2 with diabetic nephropathy -reportedly metformin recently stopped due to renal function she takes glipizide 10 daily. Currently on sliding scale insulin. Still uncontrolled, use basal and prandial with close monitoring. # Hyperlipidemia -statin # HTN -lisinopril on hold due to RENE. Hydralazine as needed. Monitor BP, trending in the upper side. DVT ppx - SCD, avoiding heparin due to anemia 0B+ Code status - Full Dispo - pending clinical improvement HCP -Dr. Bowden [phone] Her son Paul was updated at bedside with her permission Health Care proxy with Phone number: Disclaimer: Speech recognition software was utilized to dictate portions of this document. Errors in e commerce marketing analyst may be present. Please call / cortext me if any questions. Portions of this note such ROS, Exam, Assessment and Plan were copy pasted from previous notes. Information was reviewed and changes were made accordingly. I agree with above mentioned information * Kwesi Guido MD - 07/11/2024 5:44 PM EST [facility] Provider Response Note PATIENT: ANA CONTRERAS : 1945 ADMIT DATE: 07/08/2024 2:44 PM DISCH DATE: RESPONDING PROVIDER #: [id number] PROVIDER RESPONSE TEXT: The patient has traumatic rhabdomyolysis QUERY TEXT: Please further specify the rhabdomyolysis such as: ED Provider Notes 07/08/2024 (2) Chief Complaint: Fall HPI: Status post mechanical fall at home unwitnessed tripped cluttered room not take any blood thinners denies any head injury pain abdominal pain chest pain or respiratory distress. H&P 07/08/2024 -Patient was seen today with confusion was found down on the ground at home....Rhabdomyolysis -CPK was 649, continue with IV hydration -Troponin was faintly elevated but flat at 80 and 81, likely demand in the setting of rhabdomyolysis Contact: The patient's clinical indicators include: Options provided: -- Nontraumatic -- Traumatic -- Other - I will add my own diagnosis -- Disagree - Not applicable / Not valid Query created by: Desi Stern on 07/11/2024 5:40 PM Electronically signed by: KWESI GUIDO MD 07/11/2024 5:43 PM * Nalini Caceres RN - 07/11/2024 2:54 PM EST CM Progress Note DANITZA: 07/12-07/13 Barriers: renal following, labs, IV iron Plan: HOME HEALTH/SNF * Chencho Wayne MD - 07/11/2024 11:04 AM EST Images from the original note were not included. Progress Note CHIEF COMPLAINT F/u SUBJECTIVE Patient seen and examined MEDICAL HISTORY Past Medical History: Diagnosis Date Anemia Arthritis Blindness Decreased vision 11/29/2014 DX:Decreased vision Diabetes mellitus, type 2 (CMS/HCC) 02/14/2014 DX:Diabetes mellitus, type 2 (HCC) Family history of early CAD 03/01/2014 DX:Family history of early CAD Family history of factor V Leiden mutation 12/12/2015 DX:Family history of factor V Leiden mutation HL (hearing loss) Hyperlipidemia 02/14/2014 DX:Hyperlipidemia Hypertension 02/14/2014 DX:Hypertension Joint pain Lung nodule Microalbuminuria 09/22/2016 DX:Microalbuminuria Osteoporosis 02/14/2014 DX:Osteoporosis MEDICATIONS atorvastatin, 10 mg, oral, Nightly ferric gluconate, 125 mg, intravenous, Daily insulin lispro, 1-6 Units, subcutaneous, Before meals & nightly pantoprazole, 40 mg, oral, q AM AC polyetheylene glycol, 17 g, oral, Daily sodium chloride, 10 mL, intravenous, BID PRN medications: acetaminophen, dextrose 50%, dextrose 50%, dextrose, dextrose, glucagon injection,hydrALAZINE, HYDROmorphone, naloxone, ondansetron, oxyCODONE, artificial tears, Insert peripheral IV AND Maintain IV access AND Saline lock IV AND sodium chloride AND sodium chloride,sodium chloride OBJECTIVE Vital signs in last 24 hours: Visit Vitals BP (!) 146/58 (BP Location: Right arm, Patient Position: Sitting) Pulse 110 Temp 37 ??C (98.6 ??F) (Temporal) Resp 20 Intake/Output last 24 hours: Intake/Output Summary (Last 24 hours) at 07/11/2024 1105 Last data filed at 07/11/2024 0300 Gross per 24 hour Intake 441.25 ml Output 300 ml Net 141.25 ml Weights: Admission Weight: Weight: 72.6 kg (160 lb) Wt Readings from Last 3 Encounters: 07/11/24 79.1 kg (174 lb 6.4 oz) 06/17/24 76.2 kg (168 lb) 06/13/24 76.5 kg (168 lb 9.6 oz) Physical Exam: General: No acute distress HEENT: Normocephalic, atraumatic, anicteric Cardiovascular: S1 S2 normal Respiratory: unlabored Gl: soft non-distended Extremities: No cyanosis Neurological: Alert Integumentary: no rash Psych: Calm, cooperative LABS Results from last 7 days Lab Units 07/11/24 0621 07/10/24 0516 07/09/24 0625 WBC AUTO K/mcL 18.4* 16.9* 18.4* HEMOGLOBIN g/dL 7.4* 7.6* 8.3* HEMATOCRIT % 23.7* 24.4* 26.1* MCV FL 75.0* 74.4* 74.4* PLATELETS K/mcL 211 277 333 Results from last 7 days Lab Units 07/11/24 0621 07/10/24 0516 07/09/24 0625 CREATININE mg/dL 4.36* 4.19* 4.07* BUN mg/dL 69* 65* 63* SODIUM mmol/L 130* 133 131* POTASSIUM mmol/L 3.7 3.8 3.8 CHLORIDE mmol/L 102 105 101 CO2 mmol/L 19* 20* 21 PTH Date Value Ref Range Status 07/10/2024 10.5 (L) 18.5 - 88.0 pcg/mL Final 07/08/2024 6.5 (L) 18.5 - 88.0 pcg/mL Final Iron Date Value Ref Range Status 07/08/2024 20 (L) 40 - 150 mcg/dL Final Comment: Hemolysis present 05/31/2024 14 (L) 40 - 150 mcg/dL Final TIBC Date Value Ref Range Status 07/08/2024 186 (L) 250 - 450 mcg/dL Final 05/31/2024 278 250 - 450 mcg/dL Final Ferritin Date Value Ref Range Status 07/08/2024 708 (H) 8 - 252 ng/mL Final 05/31/2024 294 (H) 8 - 252 ng/mL Final No results found for: COLORUA , CLARITYUA , SPECGRAVUA , PHUA , PROTUA , GLUCOSEUA , KETONESUA , BILIRUBINUA , BLOODUA , UROBILINOGUA , NITRITEUA IMPRESSION and PLAN Acute kidney injury. RENE likely due to acute tubular injury. She has been adequately hydrated without significant improvement in renal function Obstruction has been ruled out. Patient was on MAK inhibitor lisinopril which would have contributed to her renal insufficiency. Patient is hypercalcemic and that could be a competent of hypercalcemia induced polyuria/RENE Cannot rule out acute GN/interstitial disease Due to patient of fall CPK level was within normal limits Chronic kidney disease stage IIIb/IV at baseline in setting of longstanding hypertension diabetes with likely hypertensive/diabetic renal disease. We need to rule out myeloma and stations anemia and hypercalcemia Hyponatremia which is hyperosmolar with serum osmolality about 300 Anemia which is iron deficient. We need to rule out myeloma. She could also have a component of erythropoietin deficiency Hypercalcemia. PTH is low consistent with malignancy related hypercalcemia Hypertension Right upper lobe pulmonary nodule -Avoid nephrotoxins, such as NSAIDs, iodinated contrast, and phosphate enema, as able. -Have ordered spot urine for electrolytes protein creatinine -Mild acidosis. Will start patient on LR at 100 mL/h -Follow-up calcium level -Agree with transfusion. IV iron Ferrlecit ordered starting today -Dose all mediations for appropriate eGFR -Follow-up renal function and electrolytes in a.m. -Sodium level is already improved Chencho Wayne MD * Denisse Elmore OT - 07/11/2024 8:34 AM EST [facility] Occupational Therapy Evaluation DATE: Thursday July 11, 2024 TIME IN: 729 TIME OUT: 0820 Pt: Ana Contreras ROOM: [facility]561-2 Discharge Recommendation: correction facility Equipment Recommendation: walker Staff recommendations for safe patient handlin person CGA with RW Assessment: Patient is a 79 y.o. y.o. female presenting for OT evaluation following admission due to fall due to acute encephalopathy. During today's skilled acute care OT evaluation, pt demonstratedthe following deficits: impaired flexibility inhibiting LB dressing, decreased dynamic balance and e ndurance, and impaired short term memory. Pt currently requires assistance for ADLs and min Assistance for functional transfers/mobility. Pt will continue to benefit from skilled acute care OT services this admission to facilitate improvements in the areas of deficit listed above and to progress toward their PLOF with ADLs and IADLs. OT Time Calculation OT Start Time: 30 OT Stop Time: 0820 OT Time Calculation (min): 50 min History of Present Illness: Patient is a 79 y.o. female admitted to [facility] on 07/08/2024. Occupational Therapy evaluation and treatment ordered to assess ADL independence, safety, and functional mobility for discharge planning. Patient Active Problem List Diagnosis Hypertension Hyperlipidemia History of cancer of unknown primary site CKD (chronic kidney disease) stage 4, GFR 15-29 ml/min ([facility]) Iron deficiency anemia Impaired renal function Type 2 diabetes mellitus without complication, without long-term current use of insulin ([facility]) Lung mass Acute encephalopathy Past Medical History: Diagnosis Date Anemia Arthritis Blindness Decreased vision 11/29/2014 DX:Decreased vision Diabetes mellitus, type 2 ([facility]/HCC) 02/14/2014 DX:Diabetes mellitus, type 2 (HCC) Family history of early CAD 03/01/2014 DX:Family history of early CAD Family history of factor V Leiden mutation 12/12/2015 DX:Family history of factor V Leiden mutation HL (hearing loss) Hyperlipidemia 02/14/2014 DX:Hyperlipidemia Hypertension 02/14/2014 DX:Hypertension Joint pain Lung nodule Microalbuminuria 09/22/2016 DX:Microalbuminuria Osteoporosis 02/14/2014 DX:Osteoporosis Past Surgical History: Procedure Laterality Date CATARACT EXTRACTION Bilateral 2019 PROCEDURE: HISTORICAL CATARACT REMOVAL OTHER SURGICAL HISTORY 05/2012 PROCEDURE: ---- OTHER ----; COMMENT: lumbar microdiscectomy Subjective I think they already checked my sugar. Patient alert and agreeable to engage in OT evaluation and treatment. Objective Patient was identified by name and x2. Hearing: Intact Speech: Intact Vision: Vision: Impaired and pt legally blind due to diabetic retinopathy. 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 Additional activities performed during evaluation: Supine to EOB S level. Transfer to commode via w/w with min A and A to manage IV pole. Pt able to lower to commode with steadying. A to thread LEs through brief. Stood from commode x 2 trials close Sto w/w. Pt able to perform hygiene and hike brief over hips. Pt amb around bed to arm chair via w/wwith A to manage IV pole CG. Pt provided dentures and was able to apply after set up. Able to feed self with orientation to tray. Nursing in with pt to assess vitals and check blood glucose. Daughterin at end of session. Pt with poor recall of blood glucose assessment. ADDITIONAL COMMENTS: Chart reviewed. Pt agrees to participate and received supine with HOB elevated. All lines in place.Daughter present during end of session. Medical precautions observed appropriately. Initiated education on Role of OT, Transfer Safety, Ambulation Safety, and Therapy Plan of Care. Ptneeds reinforcement for carry over. EXIT STATUS: Session ended with patient sitting in chair, tray table and call light within reach, and RN made aware. Needs in reach. RN made aware no chair alarm available in room. Left with nursing staff. OT Goals Pt seen for OT eval and treatment session to assess ADL and functional status. See above for details of evaluation/treatment session. OT Assessment OT Assessment Results: Decreased ADL status, Decreased endurance, Decreased functional mobility Prognosis: Good Evaluation/Treatment Tolerance: Patient tolerated treatment well Plan Treatment Interventions: ADL retraining, Functional transfer training OT Plan: Skilled OT OT Frequency : 5-7 days per week OT Duration of Sessions: 30-45 min per session OT Treatments per day: 1 time per day OT - Evaluation Status: Complete OT Discharge Recommendations: correction facility placement, Home OT Equipment Recommended: Walker-standard, Shower chair Encounter Problems Encounter Problems (Active) Template: Occupational Therapy Problem: Dressings Lower Extremities Goal: Patient will complete lower body dressing Dates: Start: 07/11/24 Expected End: 07/15/24 Description: Goal Type: STG, Performance Level: Supervision Problem: Transfers Goal: Patient will perform toilet transfer Dates: Start: 07/11/24 Expected End: 07/15/24 Description: Goal Type: STG, Performance Level: mod I Encounter Problems (Resolved) There are no resolved problems. Denisse Elmore, OT [id number] * Liliana Booth RN - 07/11/2024 6:54 AM EST Goals: Problem: Falls: Fall Risk (Adult IP BH) Goal: (Goal) Patient will experience maximum safety and reduce risk for falls. Outcome: Progressing Identify possible barriers to meeting goals/advancing plan of care: Stability of the patient: Moderately Stable - Low risk of patient condition declining or worsening End of Shift Summary: Pt voided in the commode. No complain of dizziness. Bed is in low position, call chavarria is within reach, bed alarm on. * Prisca Goldman PT - 07/10/2024 2:37 PM EST [facility] Physical Therapy Evaluation & Treatment PT Discharge Recommendations: correction facility placement Staff Recommendations for safe patient handlin person assist with wwalker Precautions Medical Precautions: Fall Risk Safety Interventions: Call chavarria within reach, ID band on, Bed alarm, Side rails up x1 RUE Weight Bearing Status: Full LUE Weight Bearing Status: Full RLE Weight Bearing Status: Full LLE Weight Bearing Status: Full Fall prevention education provided including use of call light in hospital, use of appropriate assistive device, safe mobility techniques, and safety measures at home. PT Received On: 07/10/24 PT Start Time: 1300 PT Stop Time: 1330 PT Time Calculation (min): 30 min Precautions Medical Precautions: Fall Risk Safety Interventions: Call chavarria within reach, ID band on, Bed alarm, Side rails up x1 RUE Weight Bearing Status: Full LUE Weight Bearing Status: Full RLE Weight Bearing Status: Full LLE Weight Bearing Status: Full Cognition Overall Cognitive Status: Within Functional Limits Arousal/Alertness: Appropriate responses to stimuli Orientation Level: Oriented X4 Following Commands: Follows one step commands consistently Safety Judgment: Good awareness of safety precautions Awareness of Errors: Good awareness of errors made Hearing: Intact Vision: Intact Speech: Intact Integumentary: intact History of Present Illness: Patient is a 79 y.o. female admitted to [facility] on 07/08/2024. Patient Active Problem List Diagnosis Hypertension Hyperlipidemia History of cancer of unknown primary site CKD (chronic kidney disease) stage 4, GFR 15-29 ml/min ([facility]) Iron deficiency anemia Impaired renal function Type 2 diabetes mellitus without complication, without long-term current use of insulin ([facility]) Lung mass Acute encephalopathy Past Medical History: Diagnosis Date Anemia Arthritis Blindness Decreased vision 11/29/2014 DX:Decreased vision Diabetes mellitus, type 2 ([facility]) 02/14/2014 DX:Diabetes mellitus, type 2 ([facility]) Family history of early CAD 03/01/2014 DX:Family history of early CAD Family history of factor V Leiden mutation 12/12/2015 DX:Family history of factor V Leiden mutation HL (hearing loss) Hyperlipidemia 02/14/2014 DX:Hyperlipidemia Hypertension 02/14/2014 DX:Hypertension Joint pain Lung nodule Microalbuminuria 09/22/2016 DX:Microalbuminuria Osteoporosis 02/14/2014 DX:Osteoporosis Past Surgical History: Procedure Laterality Date CATARACT EXTRACTION Bilateral 2020 PROCEDURE: HISTORICAL CATARACT REMOVAL OTHER SURGICAL HISTORY 05/2012 PROCEDURE: ---- OTHER ----; COMMENT: lumbar microdiscectomy Social History Home Living Environment: Home Living Type of Home: House Lives With: Alone Home Adaptive Equipment: Rollator, Cane Home Layout: One level Home Access: Stairs to enter with rails Entrance Stairs-Rails: Rail on the left going up Entrance Stairs-Number of Steps: 3 Prior Function Level of [place]: Independent with mobility and functional transfers Ambulation Status: Household ambulator Indoor Mobility Assistance: Independent Stairs Assistance : Independent Prior Device Use: Cane Do you drive?: No Which is your dominant hand?: Right General Assessment 07/10/24 1300 PT Last Visit PT Received On 07/10/24 PT Time Calculation PT Start Time 1300 PT Stop Time 1330 PT Time Calculation (min) 30 min Precautions Medical Precautions Fall Risk Safety Interventions Call chavarria within reach;ID band on;Bed alarm;Side rails up x1 RUE Weight Bearing Status Full LUE Weight Bearing Status Full RLE Weight Bearing Status Full LLE Weight Bearing Status Full Vital Signs Patient Identification Yes Oxygen Therapy Oxygen Therapy None (Room air) Pain Assessment Pain Assessment No/denies pain Pain Score 0 - No pain Cognition Overall Cognitive Status WFL Arousal/Alertness Appropriate responses to stimuli Orientation Level Oriented X4 Following Commands Follows one step commands consistently Safety Judgment Good awareness of safety precautions Awareness of Errors Good awareness of errors made Home Living Type of Home House Lives With Alone Home Adaptive Equipment Rollator;Cane Home Layout One level Home Access Stairs to enter with rails Entrance Stairs-Rails Rail on the left going up Entrance Stairs-Number of Steps 3 Prior Function Level of [place] Independent with mobility and functional transfers Ambulation Status Household ambulator Indoor Mobility Assistance Independent Stairs Assistance Independent Prior Device Use Cane Do you drive? No Activity Tolerance Endurance Tolerates less than 10 min exercise, no significant change in vital signs Sensation Light Touch No apparent deficits Coordination Coordination Functional Static Sitting Balance Static Sitting-Level of Assistance Supervision Static Standing Balance Static Standing-Level of Assistance Standby assistance Bed Mobility Rolling Left and Right Assistance Minimum assistance Rolling Left and Right Deficit Steadying;Verbal cueing;Supervision/safety awareness;Increased time to complete Lying to Sitting Assistance Minimum assistance Lying to Sitting Deficit Steadying;Verbal cueing;Supervision/safety awareness;Assist lifting left leg off of bed;Increased time to complete Transfers Sit to Stand Assistance Minimum assistance Sit to Stand Deficit Steadying;Verbal cueing;Supervision/safety awareness Chair/Bed to Chair/Bed Transfer Assistance Contact guard Chair/Bed to Chair/Bed Transfer Deficit Supervision/safety awareness;Verbal cueing;Steadying Ambulation Walking Assistance Contact guard Walking Deficit Steadying;Verbal cueing;Supervision/safety awareness;Increased time to complete Device Rolling walker Distance Ambulated (ft) 12 RUE Assessment RUE Assessment Within Functional Limits LUE Assessment LUE Assessment Within Functional Limits RLE Assessment RLE Assessment Within Functional Limits RLE Assessment Comments /5 LLE Assessment LLE Assessment Within Functional Limits LLE Assessment Comments 3/5 PT Assessment PT Assessment Results Decreased strength;Decreased range of motion;Decreased endurance;Impaired balance Prognosis Good Evaluation/Treatment Tolerance Patient limited by fatigue Medical Staff Made Aware Yes Plan Treatment/Interventions Functional transfer training;LE strengthening/ROM;Gait training PT Plan Skilled PT PT Frequency 2-5 days per week PT Duration of Sessions 15-30 min per session PT Treatments per day 1 time per day PT Discharge Recommendations correction facility placement PT - Evaluation Status Complete PT - OK to Discharge Yes PT Evaluation Time Entry PT Evaluation (Moderate) Time Entry 30 Treatment performed during evaluation: None performed ADDITIONAL COMMENTS: Chart reviewed. RN clears pt for session. Pt agrees to participate and presented in in bed upon PT arrival. All lines in place. Gait belt utilized throughout treatment to maximize safety. Medical precautions observed appropriately. Initiated education on the importance of PT, bed mobility safety, Transfer Safety, Ambulation Safety , Therapy Plan of Care, Home Safety, Energy Conservations strategies, and importance of OOB activity . Pt verbalized understanding. EXIT STATUS: Session ended with patient on commode, tray table and call light within reach, and RN made aware. Physical Therapy Assessment/Plan Ana Contreras is a 79 y.o. female admitted to [facility] on 07/08/2024 for Hyponatremia [E87.1] Acute on chronic renal insufficiency [N28.9, N18.9] Acute encephalopathy [G93.40] Anemia, unspecified type [D64.9] . Pt presents with decreased BLE strength, balance deficits, decreased activity tolerance, and far below functional baseline. Pt performed bed mobility Minimal assist, Bedrail, HOB elevated, and Therapist assist, Transfers with Minimal assist, FWW and ambulates Contact guard with FWW 12 ft . Pt will benefit from skilled acute PT during hospital stay to improve thedeficits listed above and optimize function. PT recommends correction facility placement when medically stable for safe discharge and to optimize functional mobility and independence. Goals Education Documentation Home Exercise Program, taught by Prisca Goldman PT at 07/10/2024 2:37 PM. Learner: Patient Readiness: Eager Method: Explanation, Demonstration Response: Verbalizes Understanding, Demonstrated Understanding Mobility Training, taught by Prsica Goldman PT at 07/10/2024 2:37 PM. Learner: Patient Readiness: Eager Method: Explanation, Demonstration Response: Verbalizes Understanding, Demonstrated Understanding Education Comments No comments found. Prisca Goldman PT * Maria Alejandra Melendez MD - 07/10/2024 12:56 PM EST Images from the original note were not included. SONYA PROGRESS NOTE Date: 07/10/2024 Author: Maria Alejandra Melendez MD Patient ID: Ana Contreras is a 79 y.o. female : 1945 MR#: [id number] SUBJECTIVE CC: Here with fall, RENE, hyponatremia She feels little stronger, she was able to sleep better. Denies pain. No dyspnea. She is eating breakfast. ROS: No fever or chills. OBJECTIVE Vitals: 07/10/24 0915 BP: 137/62 Pulse: 100 Resp: 18 Temp: 36.6 ??C (97.8 ??F) SpO2: 98% Physical exam: Gen:Fatigued, not in distress CVS:S1S2 RR Chest:clear, diminished Abd: soft, NT Extr:without pitting edema Neuro:awake and alert, face symmetric,power is intact in both upper extremities, cannot lift LE on her own, but distal power is good. Current Medications: atorvastatin, 10 mg, oral, Nightly insulin lispro, 1-6 Units, subcutaneous, Before meals & nightly polyetheylene glycol, 17 g, oral, Daily sodium chloride, 10 mL, intravenous, BID PRN medications: acetaminophen, dextrose 50%, dextrose 50%, dextrose, dextrose, glucagon injection,hydrALAZINE, HYDROmorphone, naloxone, ondansetron, oxyCODONE, artificial tears, Insert peripheral IV AND Maintain IV access AND Saline lock IV AND sodium chloride AND sodium chloride,sodium chloride HEMATOLOGY Lab Results Component Value Date WBC 16.9 (H) 07/10/2024 HGB 7.6 (L) 07/10/2024 HCT 24.4 (L) 07/10/2024 MCV 74.4 (L) 07/10/2024 PLT 277 07/10/2024 INR 1.1 06/17/2024 CHEMISTRY Lab Results Component Value Date GLUCOSE 214 (H) 07/10/2024 NA 133 07/10/2024 K 3.8 07/10/2024 CO2 20 (L) 07/10/2024 CL 105 07/10/2024 BUN 65 (H) 07/10/2024 CREATININE 4.19 (H) 07/10/2024 EGFR 10 (L) 07/10/2024 CALCIUM 8.5 07/10/2024 MG 1.8 (L) 07/10/2024 ANIONGAP 8 07/10/2024 Imaging: XR Chest 1 View Narrative: Frontal view of the chest COMPARISON: Chest radiograph July 08 INDICATION: Weakness Impression: Scarring is noted lung apices. No acute infiltrate. Mediastinum appears normal. -------- FINAL REPORT -------- Dictated By: Primo Dee Dictated Date: 07/09/2024 09:02 ET Assigned Physician: Primo Dee Reviewed and Electronically Signed By: Primo Dee Signed Date: 07/09/2024 09:03 ET Workstation ID: [id number] Transcribed By: Self Edit Transcribed Date: 07/09/2024 09:02 ET ASSESSMENT & PLAN Ana Contreras is a 79 y.o. female with PMH of HTN, DM2, CKD 4, iron deficiency anemia, hyperlipidemia, and recent diagnosis of lung nodule with planned bronchoscopy and EBUS scheduled following week, who was brought into the hospital after wellness check was called to police by her daughter. Patient reportedly did not answer her calls. She was found on the ground unable to get up, she was confused initially and could not provide history. Patient was noted to be afebrile and hemodynamically stable without hypoxia labs demonstrated leukocytosis with hemoglobin 7.3 most recent hemoglobin 7.4 on 06/17/2024, RENE was noted with BUN 63 and creatinine 4(most recent creatinine 2 on 06/17/2024), calcium was somewhat elevated at 10.6 with corrected calcium around 12. High sensitive troponin was 80 with repeat 81, CK was 649. UA demonstrated proteinuria glucosuria large blood 7 WBCs 21 RBCs and negative bacteria. EKG showed sinus rhythm with first-degree AV block right bundle branch block, QTc 454. CT head showed no acute intracranial abnormality CT neck showed no cervical spine fracture, and chest x-ray was without acute findings. She was admitted, and initiated on IV fluids. # RENE -CKD4 -creatinine was 1.6-1.7 approximately 1 month prior to this presentation. It was 2 on 06/17/2024. She presented with creatinine 4.1. ??Prerenal vs other. Cre did not improve with fluids and stopping it today. Renal US pending - it was performed on 06/29 but not reported yet(radiology department called and report should be out later today). Nephrology consulted, await eval. Further studies based on recs(of note serum protein electrophoresis sent on admission). # Anemia -history of iron deficiency anemia, reportedly in ED occult blood weakly positive. No major bleeding noted. She is hemodynamically stable. 1 unit was administered on admission with appropriate improvement in H&H. Trended down somewhat today. Monitor closely. # Hypercalcemia mild -noted in the past most recently 05/31/2024 calcium was 11. She came in with level 10.6 with corrected calcium around 12. Calcium improved to 9.5 with IV fluids. Hold calcium supplements. PTH is low. ? Malignancy related. # RUL pulmonay nodules/right lung mass-status post CT-guided biopsy 05/23/2024 which was nondiagnostic, referred to thoracic and plan is for endoscopy with EBUS which is scheduled tentatively for t next week. # Leukocytosis - +nonproductive cough present for some, no recent cold symptoms, no fevers.UA/culture negative, respiratory viral panel negative. Monitor closely, low threshold for antibiotics but noindication currently. # Abnormal TSH - add Free T4,T3. 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 Currently on sliding scale insulin. Hyperlipidemia -statin HTN -lisinopril on hold due to RENE. Hydralazine as needed. Monitor BP DVT ppx - SCD, avoiding heparin due to anemia 0B+ Code status - Full Dispo - pending clinical improvement HCP -Dr. Bowden [phone] -I met with her at the bedside on 07/09/24 and reviewed the plan. 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 Barriers: Legally blind, s/p found down, rene, rhabdo, anemia w transfusion, IVF, trend labs, PT, elevated glucose Dispo: VNA and STR referrals initiated per [facility] Choice. Pt lives alone w family support. Interested in community resources, SW consulted * Maria Alejandra Melendez MD - 07/09/2024 8:29 AM EST Images from the original note were not included. SONYA PROGRESS NOTE Date: 07/09/2024 Author: Maria Alejandra Melendez MD Patient ID: Ana Contreras is a 79 y.o. female : 1945 MR#: [id number] SUBJECTIVE CC: Here with fall, RENE, hyponatremia Seen first time. She tell me she passed out, cannot tell me details and does not know how long she was on the floor. She knows she is in the hospital, after wellness check by police. She denies pain, denies dyspnea. States in usual health past several days, she lives alone. ROS: No fever or chills. OBJECTIVE Vitals: 07/09/24 0420 BP: (!) 148/67 Pulse: 100 Resp: 18 Temp: 36.4 ??C (97.5 ??F) SpO2: 97% Physical exam: Gen:Fatigued, not in distress CVS:S1S2 RR Chest:clear, diminished Abd: soft, NT Extr:without pitting edema Neuro:awake and alert, face symmetric,power is intact in both upper extremities, cannot lift LE on her own, but distal power is good. Current Medications: atorvastatin, 10 mg, oral, Nightly insulin lispro, 1-6 Units, subcutaneous, Before meals & nightly polyetheylene glycol, 17 g, oral, Daily sodium chloride, 10 mL, intravenous, BID sodium chloride, 100 mL/hr, Last Rate: 100 mL/hr (07/09/24 0605) PRN medications: acetaminophen, dextrose 50%, dextrose 50%, dextrose, dextrose, glucagon injection,HYDROmorphone, naloxone, ondansetron, oxyCODONE, artificial tears, Insert peripheral IV AND Maintain IV access AND Saline lock IV AND sodium chloride AND sodium chloride, sodium chloride HEMATOLOGY Lab Results Component Value Date WBC 18.4 (H) 07/09/2024 HGB 8.3 (L) 07/09/2024 HCT 26.1 (L) 07/09/2024 MCV 74.4 (L) 07/09/2024 PLT 333 07/09/2024 INR 1.1 06/17/2024 CHEMISTRY Lab Results Component Value Date GLUCOSE 170 (H) 07/09/2024 NA 131 (L) 07/09/2024 K 3.8 07/09/2024 CO2 21 07/09/2024 CL 101 07/09/2024 BUN 63 (H) 07/09/2024 CREATININE 4.07 (H) 07/09/2024 EGFR 11 (L) 07/09/2024 CALCIUM 9.5 07/09/2024 MG 2.0 07/09/2024 ANIONGAP 9 07/09/2024 Imaging: XR Chest 2 Views Narrative: PA and lateral views of the chest dated 07/08/2024. HISTORY: chest pain. COMPARISON: CT 06/17/2024. FINDINGS: Areas of scarring in the upper lungs, right greater than left. Lungs otherwise clear. Atherosclerotic calcifications of the aorta. Pleural spaces and pulmonary vasculature are normal. Normal heart size. Impression: No acute findings. -------- FINAL REPORT -------- Dictated By: Henrique Bray Dictated Date: 07/08/2024 14:06 ET Assigned Physician: Henrique Bray Reviewed and Electronically Signed By: Henrique Bray Signed Date: 07/08/2024 14:07 ET Workstation ID: [id number] Transcribed By: Self Edit Transcribed Date: 07/08/2024 14:[address] Cervical Spine wo Contrast Narrative: PROCEDURE: Cervical spine CT INDICATION: Pain TECHNIQUE: Noncontrast CT of the cervical spine with multiplanar reformats. The examination was performed utilizing dose reduction techniques. Total DLP 1311 COMPARISON: Chest CT 06/17/2024. FINDINGS: No acute fracture or prevertebral swelling. Cervical alignment is within normal limits. Multilevel degenerative changes are seen throughout the cervical spine with uncovertebral spurring and facet arthropathy present. Paraspinal muscles are within normal limits. Right apical opacity and cavitary nodularity is unchanged compared to prior chest CT. No pneumothorax at the lung apices. Impression: No acute cervical spine fracture. -------- FINAL REPORT -------- Dictated By: GLENNA SOLITARIO Dictated Date: 07/08/2024 12:24 ET Assigned Physician: GLENNA SOLITARIO Reviewed and Electronically Signed By: GLENNA SOLITARIO Signed Date: 07/08/2024 12:27 ET Workstation ID: [id number] Transcribed By: Self Edit Transcribed Date: 07/08/2024 12:[address] Head wo Contrast Narrative: PROCEDURE: HEAD CT INDICATION: Trauma, pain TECHNIQUE: CT of the head without intravenous contrast. Multiplanar reformats. The examination was performed utilizing dose reduction techniques. Total DLP 1311 COMPARISON: No priors available. FINDINGS: No acute territorial infarct, mass effect, or intracranial hemorrhage. Mild scattered periventricular and subcortical white matter hypodensities are most likely related to chronic small vessel ischemic change. Diffuse cerebral volume loss with prominence of ventricles and sulci. No hydrocephalus. Scattered mucosal thickening seen throughout the sinuses. Mastoid air cells are clear. Bilateral lens implants. No scalp hematoma or skull fracture. Impression: NO ACUTE INTRACRANIAL ABNORMALITY. -------- FINAL REPORT -------- Dictated By: GLENNA SOLITARIO Dictated Date: 07/08/2024 12:22 ET Assigned Physician: GLENNA SOLITARIO Reviewed and Electronically Signed By: GLENNA SOLITARIO Signed Date: 07/08/2024 12:23 ET Workstation ID: [id number] Transcribed By: Self Edit Transcribed Date: 07/08/2024 12:22 ET ASSESSMENT & PLAN Ana Contreras is a 79 y.o. female with PMH of HTN, DM2, CKD 4, iron deficiency anemia, hyperlipidemia, and recent diagnosis of lung nodule with planned bronchoscopy and EBUS scheduled following week, who was brought into the hospital after wellness check was called to police by her daughter. Patient reportedly did not answer her calls. She was found on the ground unable to get up, she was confused initially and could not provide history. Patient was noted to be afebrile and hemodynamically stable without hypoxia labs demonstrated leukocytosis with hemoglobin 7.3 most recent hemoglobin 7.4 on 06/17/2024, RENE was noted with BUN 63 and creatinine 4(most recent creatinine 2 on 06/17/2024), calcium was somewhat elevated at 10.6 with corrected calcium around 12. High sensitive troponin was 80 with repeat 81, CK was 649. UA demonstrated proteinuria glucosuria large blood 7 WBCs 21 RBCs and negative bacteria. EKG showed sinus rhythm with first-degree AV block right bundle branch block, QTc 454. CT head showed no acute intracranial abnormality CT neck showed no cervical spine fracture, and chest x-ray was without acute findings. She was admitted, and initiated on IV fluids. # RENE -CKD4 -creatinine was 1.6-1.7 approximately 1 month prior to this presentation. It was 2 on 06/17/2024. She presented with creatinine 4.1. ??Prerenal vs other. Renal US pending. If no improvement, consult nephrology. # Anemia -history of iron deficiency anemia, reportedly in ED occult blood weakly positive. No major bleeding noted. She is hemodynamically stable. 1 unit was administered on admission with appropriate improvement in H&H. # Hypercalcemia mild -noted in the past most recently 05/31/2024 calcium was 11. She came in with level 10.6 with corrected calcium around 12. Calcium improved to 9.5 with IV fluids. Hold calcium supplements. # RUL pulmonay nodules/right lung mass-status post CT-guided biopsy 05/23/2024 which was nondiagnostic, referred to thoracic and plan is for endoscopy with EBUS which is scheduled tentatively for t next week. # Leukocytosis - +nonproductive cough present for some, no recent cold symptoms, no fevers.UA/culture negative, respiratory viral panel negative. Monitor closely, low threshold for antibiotics but noindication currently. 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 Currently on sliding scale insulin. Hyperlipidemia -statin HTN -lisinopril on hold due to RENE. Hydralazine as needed. Monitor BP DVT ppx - SCD, avoiding heparin due to anemia 0B+ Code status - Full Dispo -pending clinical improvement HCP -Dr. Bowden [phone] -I met with her at the bedside later and reviewed the plan. * Fang Sahu RN - 07/09/2024 4:37 AM EST Problem: Falls: Fall Risk (Adult IP BH) Goal: (Goal) Patient will experience maximum safety and reduce risk for falls. Outcome: Progressing Goals: Identify possible barriers to meeting goals/advancing plan of care: none Stability of the patient: Moderately Stable - Low risk of patient condition declining or worsening End of Shift Summary: Pt alert and oriented x3 neuros intact. Pt voiding on bedpan- bladder scan performed without incident. Pt resting comfortably at this time and denies pain. * Jolene Cardona RN - 07/09/2024 12:13 AM EST Goals: Identify possible barriers to meeting goals/advancing plan of care: Abnormal labs Stability of the patient: Moderately Stable - Low risk of patient condition declining or worsening End of Shift Summary: BP elevated, PRN Hydralazine given with positive effect * Lillian Granados RN - 07/08/2024 6:28 PM EST ED RN HANDOFF (All Pop Below Must Be Completed) Reason/Diagnosis for Admission: Anemia / Blood transfusion Type of Admission: [x] Medsurg, [] Telemetry Already in a Hospital Bed: [] Yes / [x] No Room Considerations/Precautions (ex: fever, diarrhea, or any infectious concerns): [] Yes / [x] No Tellers Supervisor: [] Yes / [x] No If YES, Cardiac Rhythm: [] NSR, [] SB, [] ST, [] A-FIB, [] A-Flutter, [] Pacemaker, [] 1st Degree HB, [] 2nd Degree HB, [] 3rd Degree HB Reason for Tellers Supervisor: VS: Visit Vitals BP (!) 148/62 (BP Location: Left arm, Patient Position: Sitting) Pulse 93 Temp 36.6 ??C (97.9 ??F) (Oral) Resp 17 SpO2 100% Smoking Status Never Current Mental Status: A/O x [x]4, []3, []2, []1 Current Ambulation Status: Not assessed IV Access: [x] Yes / [] No Field IV present: [] Yes / [x] No Hx of Violence: [] Yes / [x] No / [] Unknown Fall Risk:[x] Yes / [] No Yellow Bracelet Applied [x] Yes / [] No Yellow Socks Applied [x] Yes / [] No Patient Belongings inventoried and BL completed: [x] Yes / [] No Patient belongings stored in the security closet: [] Yes (If Yes please supply Security bag #): [x] No Patient Medications stored in Pharmacy: [] Yes (If Yes please supply Medication Security bag #): [x] No ED Summary of Care: Pt came in via EMS for a unwitnessed fall. Pt unable to remember when she fell or why she fell. A/O x4 since arriving to ED and has had no complaints of pain. Lung sounds clear, denies chest pain. Pt found to be anemic - blood transfusing, IV Fluids running. Hem positive stool. Straight cath to obtain urine sample, UA negative. Vital signs stable. Submitted by [place] Extension: [place] [phone] * Michelle Christie RN - 07/08/2024 3:51 PM EST 07/08/24 1549 Initial Transition Plan Initial Transition Plan Senior Living Facility Back up Transition Plan Back up Transition plan Home Health Care Discharge Planning Contact (Name, Phone #, Relationship) for DC Planning Dennise N[place] daughter [phone] Living Arrangements Alone Type of Residence Private residence (apartment with 6 steps to enter/no elevator) Assistive Devices Walker;Cane Support Systems Children;Extended family Medication Coverage Has Med Coverage Under Insurance Plan Yes Anticipated Discharge Needs Home Health PT;RN Discipline following for SNF placement 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 Recently s/p fall as well as a fall three months ago. Diagnosis with breast cancer but plan of care is in preliminary stages and ?of biopsy. She has a supportive family that assists with care needs such as shopping/house keeping/ errands, etc. Patient states that she is blind and her sister Helps with care on Mondays. Open to referrals for wide VNA and STR including: [facility] and placed in Epic. HCP completed and IM given as patient was subacute to inpatient status. States she was diagnosed in November or December 2023 for iron deficiency anemia and has become very weak. Plan transfer to floor. * Prisca Goldman PT - 07/08/2024 1:48 PM EST Therapy session was attempted for Ana Contreras by Prisca Goldman PT on 07/08/2024. The patientwas unable to be seen for the following reason(s): Medically unstable/on Medical hold per ED provider Plan for return visit: When medically cleared/off hold * Lillian Granados RN - 07/08/2024 11:11 AM EST Pt alert and oriented x4 at this time, however unable to remember when she fell or why she fell. Nopain reported. Pt doesn't report any trouble urinating. * Melina Salas RN - 07/08/2024 10:35 AM EST Currently getting lung cancer workup. Questionable utis per ems * Melina Salas RN - 07/08/2024 10:32 AM EST Pt to [facility] via ems. Unwitnessed mechanical fall this am. Tripped over clutter in room. Unsure down time. C/o r.hip/shoulder pain. -hs. -thinners. +lower back pain. Pt denies further complaints. Bg 397has not taken meds this am. * RYLEY Rowe - 07/08/2024 10:25 AM EST Emergency Medicine Note Patient Name: Ana Contreras Initial Evaluation: 07/08/2024 : 1945 Patient's PCP: Eloisa Vázquez DO Emergency Physician: RYLEY Rowe History of Present Illness Chief Complaint: Chief Complaint Patient presents with ??? Fall HPI: 79-year-old female here today recent worked up for squamous cell lung cancer. Sees Dr. Bryant. Here today weak overall not feeling well. Status post mechanical fall at home unwitnessed tripped cluttered room not take any blood thinners denies any head injury pain abdominal pain chest pain or respiratory distress. Patient has chronic lower back pain that she is complaining of. Accompanied by daughter ROS: I have performed a ROS with the pertinent positives and negatives documented in the history ofpresent illness. Previous History Past Medical History: Diagnosis Date ??? Anemia ??? Arthritis ??? Blindness ??? Decreased vision 11/29/2014 DX:Decreased vision ??? Diabetes mellitus, type 2 (CMS/HCC) 02/14/2014 DX:Diabetes mellitus, type 2 (HCC) ??? Family history of early CAD 03/01/2014 DX:Family history of early CAD ??? Family history of factor V Leiden mutation 12/12/2015 DX:Family history of factor V Leiden mutation ??? HL (hearing loss) ??? Hyperlipidemia 02/14/2014 DX:Hyperlipidemia ??? Hypertension 02/14/2014 DX:Hypertension ??? Joint pain ??? Lung nodule ??? Microalbuminuria 09/22/2016 DX:Microalbuminuria ??? Osteoporosis 02/14/2014 DX:Osteoporosis Past Surgical History: Procedure Laterality Date ??? CATARACT EXTRACTION Bilateral 2020 PROCEDURE: HISTORICAL CATARACT REMOVAL ??? OTHER SURGICAL HISTORY 05/2012 PROCEDURE: ---- OTHER ----; COMMENT: lumbar microdiscectomy Social History Tobacco Use ??? Smoking status: Never Passive exposure: Never ??? Smokeless tobacco: Never Substance Use Topics ??? Alcohol use: No ??? Drug use: No Family History Problem Relation Name Age of Onset ??? Coronary artery disease Father ??? Heart attack Father ??? Hyperlipidemia Mother ??? Hypertension Mother ??? No Known Problems Daughter ??? Coronary artery disease Son NEEDS HEART TRANSPLANT ??? Diabetes Son ??? Other (Other: Other) Son CIDP ??? No Known Problems Son ??? Lymphoma Brother non-Hodgkins ??? Lung cancer Brother ??? No Known Problems Brother ??? Other (Other: Other) Brother ??? No Known Problems Sister ??? No Known Problems Sister ??? No Known Problems Sister ??? No Known Problems Sister has No Known Allergies. No current facility-administered medications on file prior to encounter. Current Outpatient Medications on File Prior to Encounter Medication Sig Dispense Refill ??? CALCIUM CARBONATE ORAL Calcium 600mg Take 1 tablet (600 mg total) by mouth daily ??? cetirizine (ZyrTEC) 10 mg chewable tablet Take 1 tablet (10 mg total) by mouth daily., ??? cholecalciferol (VITAMIN D-3) 50 mcg (2,000 unit) capsule Take 1 capsule (2,000 Units total) bymouth 1 (one) time each day. ??? CRANBERRY ORAL Take by mouth ??? ferrous sulfate 325 mg (65 mg iron) EC tablet Do not crush, chew, or split. Take 1 tablet (325 mg total) by mouth every morning with breakfast ??? glipiZIDE (GLUCOTROL XL) 5 mg 24 hr tablet TAKE 2 TABLETS BY MOUTH IN THE MORNING AND TAKE 1 TABLET BY MOUTH IN THE AFTERNOON (WITH MEALS) 270 tablet 0 ??? lisinopriL (PRINIVIL,ZESTRIL) 10 mg tablet Take 1 tablet (10 mg total) by mouth daily ??? simvastatin (ZOCOR) 20 mg tablet Take 1 tablet (20 mg total) by mouth every night at bedtime Physical Exam ED Triage Vitals [07/08/24 1053] Temp Heart Rate Resp BP 36.4 ??C (97.5 ??F) 96 16 (!) 165/70 SpO2 Temp src Heart Rate Source Patient Position 96 % -- -- -- BP Location FiO2 (%) -- -- Physical Exam Vitals and nursing note reviewed. Constitutional: Appearance: Normal appearance. Comments: Conjunctiva pale HENT: Head: Normocephalic and atraumatic. Nose: Nose normal. Mouth/Throat: Mouth: Mucous membranes are dry. Eyes: Extraocular Movements: Extraocular movements intact. Pupils: Pupils are equal, round, and reactive to light. Cardiovascular: Rate and Rhythm: Normal rate and regular rhythm. Pulmonary: Effort: Pulmonary effort is normal. Breath sounds: Normal breath sounds. Abdominal: General: Bowel sounds are normal. Palpations: Abdomen is soft. Musculoskeletal: General: Normal range of motion. Cervical back: Normal range of motion and neck supple. Skin: General: Skin is warm. Capillary Refill: Capillary refill takes less than 2 seconds. Neurological: General: No focal deficit present. Mental Status: She is alert and oriented to person, place, and time. Psychiatric: Mood and Affect: Mood normal. Behavior: Behavior normal. Results Labs Reviewed TROPONIN I HIGH SENSITIVITY - Abnormal Result Value High Sensitivity Troponin I 80 (*) Narrative: High levels of biotin in samples may falsely decrease hsTroponin values. Use caution when interpreting hsTroponin results in patients taking biotin who exhibit renal impairment (eGFR <60) or in patients taking more than 20 mg/day of biotin. COMPREHENSIVE METABOLIC PANEL - Abnormal Sodium 126 (*) Potassium 4.2 Chloride 93 (*) CO2 21 Anion Gap 12 (*) Glucose 265 (*) BUN 59 (*) Creatinine 4.10 (*) eGFR 10 (*) BUN/Creatinine Ratio 14.4 Calcium 10.6 (*) AST (SGOT) 57 (*) ALT (SGPT) 39 Alkaline Phosphatase 149 (*) Total Protein 6.3 Albumin 2.1 (*) Total Bilirubin 0.4 LIPASE - Abnormal Lipase <10 (*) CBC WITH AUTO DIFFERENTIAL - Abnormal WBC 18.9 (*) RBC 3.30 (*) Hemoglobin 7.3 (*) Hematocrit 23.7 (*) MCV 72.3 (*) MCH 22.3 (*) MCHC 30.8 (*) RDW 16.4 (*) Platelets 408 (*) MPV 8.9 NRBC 0.0 NRBC Absolute 0.00 Neutrophils Relative 89.5 Lymphocytes Relative 2.4 Monocytes Relative 7.0 Eosinophils Relative 0.2 Basophils Relative 0.2 Immature Granulocytes Relative 0.7 Neutrophils Absolute 16.86 (*) Lymphocytes Absolute 0.46 (*) Monocytes Absolute 1.32 (*) Eosinophils Absolute 0.04 Basophils Absolute 0.04 Immature Granulocytes Absolute 0.13 (*) URINALYSIS WITH REFLEX MICROSCOPIC AND CULTURE - Abnormal Specific [place] Urine 1.020 pH, Urine 5.5 Leukocytes, Urine Negative Nitrite, Urine Negative Protein, Urine 100 (*) Glucose, Urine 500 (*) Ketones, Urine Negative Urobilinogen, Urine 0.2 Bilirubin, Urine Negative Blood, Urine Large (*) RBC, Urine 21.6 (*) WBC, Urine 7.3 (*) Squamous Epithelial, Urine 30 Bacteria, Urine Negative Hyaline Casts, Urine 1.7 MAGNESIUM - Normal Magnesium 2.1 B-TYPE NATRIURETIC PEPTIDE - Normal BNP 86 CULTURE URINE CBC AND DIFFERENTIAL Narrative: The following orders were created for panel order CBC and differential. Procedure Abnormality Status --------- ------ CBC auto differential[[id number]] Abnormal Final result Please view results for these tests on the individual orders. TROPONIN I HIGH SENSITIVITY URINALYSIS WITH REFLEX MICROSCOPIC AND CULTURE Narrative: The following orders were created for panel order Urinalysis with reflex microscopic and culture. Procedure Abnormality Status --------- ------ Urinalysis with reflex ...[[id number]] Abnormal Final result Robertson urine culture tube[[id number]] In process Please view results for these tests on the individual orders. TYPE AND SCREEN PREPARE RBC Abnormal Labs Reviewed TROPONIN I HIGH SENSITIVITY - Abnormal; Notable for the following components: Result Value High Sensitivity Troponin I 80 (*) All other components within normal limits Narrative: High levels of biotin in samples may falsely decrease hsTroponin values. Use caution when interpreting hsTroponin results in patients taking biotin who exhibit renal impairment (eGFR <60) or in patients taking more than 20 mg/day of biotin. COMPREHENSIVE METABOLIC PANEL - Abnormal; Notable for the following components: Sodium 126 (*) Chloride 93 (*) Anion Gap 12 (*) Glucose 265 (*) BUN 59 (*) Creatinine 4.10 (*) eGFR 10 (*) Calcium 10.6 (*) AST (SGOT) 57 (*) Alkaline Phosphatase 149 (*) Albumin 2.1 (*) All other components within normal limits LIPASE - Abnormal; Notable for the following components: Lipase <10 (*) All other components within normal limits CBC WITH AUTO DIFFERENTIAL - Abnormal; Notable for the following components: WBC 18.9 (*) RBC 3.30 (*) Hemoglobin 7.3 (*) Hematocrit 23.7 (*) MCV 72.3 (*) MCH 22.3 (*) MCHC 30.8 (*) RDW 16.4 (*) Platelets 408 (*) Neutrophils Absolute 16.86 (*) Lymphocytes Absolute 0.46 (*) Monocytes Absolute 1.32 (*) Immature Granulocytes Absolute 0.13 (*) All other components within normal limits URINALYSIS WITH REFLEX MICROSCOPIC AND CULTURE - Abnormal; Notable for the following components: Protein, Urine 100 (*) Glucose, Urine 500 (*) Blood, Urine Large (*) RBC, Urine 21.6 (*) WBC, Urine 7.3 (*) All other components within normal limits CT Cervical Spine wo Contrast Final Result No acute cervical spine fracture. -------- FINAL REPORT -------- Dictated By: GLENNA SOLITARIO Dictated Date: 07/08/2024 12:24 ET Assigned Physician: GLENNA SOLITARIO Reviewed and Electronically Signed By: GLENNA SOLITARIO Signed Date: 07/08/2024 12:27 ET Workstation ID: [id number] Transcribed By: Self Edit Transcribed Date: 07/08/2024 12:[address] Head wo Contrast Final Result NO ACUTE INTRACRANIAL ABNORMALITY. -------- FINAL REPORT -------- Dictated By: GLENNA SOLITARIO Dictated Date: 07/08/2024 12:22 ET Assigned Physician: GLENNA SOLITARIO Reviewed and Electronically Signed By: GLENNA SOLITARIO Signed Date: 07/08/2024 12:23 ET Workstation ID: [id number] Transcribed By: Self Edit Transcribed Date: 07/08/2024 12:22 ET XR Chest 2 Views (Results Pending) I have discussed the incidental/abnormal imaging and/or lab abnormalities with the patient and haveinstructed them the need for further evaluation and workup with their primary care doctor. I have provided the patient with a paper copy of the abnormality. The laboratory results, imaging results and other diagnostic exam results were reviewed in the EMR. EKG Interpretation Sinus rhythm 94 Critical Care Time None Differential Diagnosis Electrolyte imbalance Weakness Intracranial bleed Medical Decision Making Well-appearing nontoxic non-lethargic. Conjunctiva pale. Patient currently being evaluated and worked up for squamous cell lung cancer. Sees Dr. bryant. Rate awaiting on . EKG is unremarkable. Head neck CT unremarkable chest x-ray unremarkablePatient sodium is 126. Will hydrate we will start her on normal saline 75 cc an hour. Her BUN is 59 her creatinine is 4.10. Last BUN/creatinine was 30 and 2.0. rBC is 18.9. Hemoglobin is 7.3 hematocrit is 23.7 consent signed patient will get transfusion of 1 unit. Medications sodium chloride 0.9 % infusion (has no administration in time range) sodium chloride 0.9 % infusion (has no administration in time range) ED Course as of 07/08/24 1404 ThuJul 08, 2024 1209 Patient is a full code. MOST form given to family and they are going to review it [RH] 1337 High Sensitivity Troponin I(!): 80 [RH] 1338 Troponin I high sensitivity(!) [RH] ED Course User Index [RH] RYLEY Rowe Clinical Impressions as of 07/08/24 1404 Anemia, unspecified type Hyponatremia Acute on chronic renal insufficiency Amount and/or Complexity of Data Reviewed External Data Reviewed: Encounters reviewed in Chart Review. Details: Labs: ordered. Decision-making details documented in ED Course. Radiology: ordered. Decision-making details documented in ED Course. ECG/medicine tests: ordered. Decision-making details documented in ED Course. Procedures Procedures Diagnosis 1. Anemia, unspecified type 2. Hyponatremia 3. Acute on chronic renal insufficiency Disposition Admit to Inpatient ED Prescriptions None Physician Attestation RYLEY Rowe 07/08/24 1058 RYLEY Rowe 07/08/24 1402 RYLEY Rowe 07/08/24 1505 RYLEY Rowe 07/09/24 1053 Cosigned by Jj Wolfe MD at 07/10/2024 7:08 AM EST documented in this encounter H&P Notes * Cecily Montez MD - 08/05/2024 10:58 AM EST Plan for [facility] EBUS. Source Note - RYLEY Harris - 07/13/2024 10:28 AM EST Patient currently admitted to [facility] for RENE and anemia. Possible need for HD. Will cancel her ramiro bronch/EBUS scheduled 07/14/24 and reschedule in the next couple weeks. * RYLEY Rivas - 07/08/2024 3:39 PM EST Images from the original note were not included. SONYA HISTORY AND PHYSICAL Please contact author [RYLEY Rivas] via [employer]. Patient: Ana Contreras Admission Date/Time: 07/08/2024 10:31 AM : 1945 [79 y.o.] Patient's PCP: Eloisa Vázquez DO Attending Provider: Wayne Donahue MD CHIEF COMPLAINT Fall, confusion HISTORY OF PRESENT ILLNESS Mrs. Contreras is a 79-year old female with PMH that shows pulmonary nodule undergoing workup for squamous cell lung cancer with scheduled bronchoscopy and EBUS procedure next week with Dr. Montez, hypertension, hyperlipidemia, CKD, iron deficiency anemia, diabetes mellitus type 2 seen today after wellness check. Patients daughter called and did not get in touch with her mother so she called for a wellness check and the patient was found down on the ground by [facility]. She was unsure the details of how long she had been on the ground and how she ended up there they decided to transfer her to the hospital for further evaluation. She was initially confused in the ED. She still could not providemuch history regarding what was going on but was currently alert and oriented x 4. She states that she has had a dry cough and has had more weakness. She denies any fevers or chills, chest pain, shortness of breath, nausea, vomiting, abdominal pain, diarrhea, leg swelling. She is legally blind so she is unaware if her stool was bloody. She has no other complaints at this time. In review of her labs she was noted to be hyponatremic but only 131/132 in May. Her creatinine was 1.6-2 and her hemoglobin was 7.4-8.2 and her white count was 12-13. She also follows with Dr. Bryant. Vitals are as follows: Temperature of 36.4, heart rate 96, respirate of 16, blood pressure 165/70 and pulse ox of 96% on room air. Labs notable for sodium of 126, glucose of 265, BUN of 59, creatinine of 4.1, troponin of 80, 81, wbcc 18.9, hgb 7.3, hct 23.7, ua does not appear infected. CT of the cervical spine showed no acute cervical spine fracture. CT of the head showed no acute intracranial abnormality. Patient was transfused 1 unit of packed red blood cells. Patient will be transferred to the care of [facility] staff for further management of their acute encephalopathy, fall. Review of Systems Review of Systems 10 point review of systems negative as otherwise stated in the HPI MEDICAL HISTORY Past Medical History Past Medical History: Diagnosis Date ??? Anemia ??? Arthritis ??? Blindness ??? Decreased vision 11/29/2014 DX:Decreased vision ??? Diabetes mellitus, type 2 (CMS/HCC) 02/14/2014 DX:Diabetes mellitus, type 2 (HCC) ??? Family history of early CAD 03/01/2014 DX:Family history of early CAD ??? Family history of factor V Leiden mutation 12/12/2015 DX:Family history of factor V Leiden mutation ??? HL (hearing loss) ??? Hyperlipidemia 02/14/2014 DX:Hyperlipidemia ??? Hypertension 02/14/2014 DX:Hypertension ??? Joint pain ??? Lung nodule ??? Microalbuminuria 09/22/2016 DX:Microalbuminuria ??? Osteoporosis 02/14/2014 DX:Osteoporosis Past Surgical History Past Surgical History: Procedure Laterality Date ??? CATARACT EXTRACTION Bilateral 2020 PROCEDURE: HISTORICAL CATARACT REMOVAL ??? OTHER SURGICAL HISTORY 05/2012 PROCEDURE: ---- OTHER ----; COMMENT: lumbar microdiscectomy Social History reports that she has never smoked. She has never been exposed to tobacco smoke. She has never used smokeless tobacco. She reports that she does not drink alcohol and does not use drugs. Family History family history includes Coronary artery disease in her father and son; Diabetes in her son; Heart attack in her father; Hyperlipidemia in her mother; Hypertension in her mother; Lung cancer in her brother; Lymphoma in her brother; No Known Problems in her brother, daughter, sister, sister, sister, sister, and son; Other: Other in her brother and son. Allergies has No Known Allergies. Home Medications No current facility-administered medications on file prior to encounter. Current Outpatient Medications on File Prior to Encounter Medication Sig Dispense Refill ??? CALCIUM CARBONATE ORAL Calcium 600mg Take 1 tablet (600 mg total) by mouth daily ??? cetirizine (ZyrTEC) 10 mg chewable tablet Take 1 tablet (10 mg total) by mouth daily., ??? cholecalciferol (VITAMIN D-3) 50 mcg (2,000 unit) capsule Take 1 capsule (2,000 Units total) bypruth 1 (one) time each day. ??? CRANBERRY ORAL Take by mouth ??? ferrous sulfate 325 mg (65 mg iron) EC tablet Do not crush, chew, or split. Take 1 tablet (325 mg total) by mouth every morning with breakfast ??? glipiZIDE (GLUCOTROL XL) 5 mg 24 hr tablet TAKE 2 TABLETS BY MOUTH IN THE MORNING AND TAKE 1 TABLET BY MOUTH IN THE AFTERNOON (WITH MEALS) 270 tablet 0 ??? lisinopriL (PRINIVIL,ZESTRIL) 10 mg tablet Take 1 tablet (10 mg total) by mouth daily ??? simvastatin (ZOCOR) 20 mg tablet Take 1 tablet (20 mg total) by mouth every night at bedtime OBJECTIVE Vitals Visit Vitals BP (!) 148/62 (BP Location: Left arm, Patient Position: Sitting) Pulse 93 Temp 36.6 ??C (97.9 ??F) (Oral) Resp 17 Temp (24hrs), Av.5 ??C (97.7 ??F), Min:36.4 ??C (97.5 ??F), Max:36.6 ??C (97.9 ??F) There is no height or weight on file to calculate BMI. No results found for: PTWT , PTHT Physical Examination Physical Exam General: older female sitting upright in the stretcher, in no acute distress, calm Skin: Appropriate tone for ethnicity, warm, dry, no rashes or wounds HEENT: normocephalic, atraumatic, sclera nonicteric, EOMI, AIMEE, dry mucuous membranes, tongue protrudes midline, uvula midline Pulmonary: Lungs clear to auscultation in all lung pop bilaterally. No wheezes railes or rhonchiappreciated, no respiratory distress, no accessory muscle use. Cardiac: S1 and S2 appreciated, no murmurs, rubs or gallops, no peripheral edema Abdomen: Soft, non-tender, nondistended, no guarding or rebound tenderness appreciated. Bowel sounds normoactive. MSK: Full range of motion in upper and lower extremities with strength 5/5 and equal bilaterally dorsiflexion, plantar flexion, handgrip strength Neuro: Alert and oriented x4 person, place, year, month. Cranial nerves 2-12 intact. No focal neurological deficits appreciated. No facial droop. Psych: Normal affect. ECG: Was ECG Performed? Yes . Sinus Rhythm? Yes. Signs of acute ischemia? No Further Interpretation: 94 bpm sinus rhythm with pvcs, Inc rbbb, LAB RESULTS (most recent) HEMATOLOGY Lab Results Component Value Date WBC 18.9 (H) 07/08/2024 HGB 7.3 (L) 07/08/2024 HCT 23.7 (L) 07/08/2024 MCV 72.3 (L) 07/08/2024 PLT 408 (H) 07/08/2024 CHEMISTRY Lab Results Component Value Date GLUCOSE 265 (H) 07/08/2024 NA 126 (L) 07/08/2024 K 4.2 07/08/2024 CO2 21 07/08/2024 CL 93 (L) 07/08/2024 BUN 59 (H) 07/08/2024 CREATININE 4.10 (H) 07/08/2024 EGFR 10 (L) 07/08/2024 CALCIUM 10.6 (H) 07/08/2024 MG 2.1 07/08/2024 ANIONGAP 12 (H) 07/08/2024 Radiology XR Chest 2 Views Final Result No acute findings. -------- FINAL REPORT -------- Dictated By: Henrique Bray Dictated Date: 07/08/2024 14:06 ET Assigned Physician: Henrique Bray Reviewed and Electronically Signed By: Henrique Bray Signed Date: 07/08/2024 14:07 ET Workstation ID: [id number] Transcribed By: Self Edit Transcribed Date: 07/08/2024 14:[address] Cervical Spine wo Contrast Final Result No acute cervical spine fracture. -------- FINAL REPORT -------- Dictated By: GLENNA SOLITARIO Dictated Date: 07/08/2024 12:24 ET Assigned Physician: GLENNA SOLITARIO Reviewed and Electronically Signed By: GLENNA SOLITARIO Signed Date: 07/08/2024 12:27 ET Workstation ID: [id number] Transcribed By: Self Edit Transcribed Date: 07/08/2024 12:[address] Head wo Contrast Final Result NO ACUTE INTRACRANIAL ABNORMALITY. -------- FINAL REPORT -------- Dictated By: GLENNA SOLITARIO Dictated Date: 07/08/2024 12:22 ET Assigned Physician: GLENNA SOLITARIO Reviewed and Electronically Signed By: GLENNA SOLITARIO Signed Date: 07/08/2024 12:23 ET Workstation ID: [id number] Transcribed By: Self Edit Transcribed Date: 07/08/2024 12:22 ET US Retroperitoneal Complete (Results Pending) ASSESSMENT & PLAN Acute encephalopathy S/p fall Hyponatremia Hypercalcemia -Patient was seen today with confusion was found down on the ground at home -Vitals are stable -Labs notable for sodium of 126, glucose of 265, BUN of 59, creatinine of 4.1, troponin of 80, 81, wbcc 18.9, hgb 7.3, hct 23.7, ua does not appear infected. -CT of the cervical spine showed no acute cervical spine fracture. -CT of the head showed no acute intracranial abnormality. -Respiratory panel ordered and pending -Corrected calcium was 12.1 -Continue with IV fluid and recheck sodium and calcium tonight in the morning -Suspect encephalopathy secondary to electrolyte abnormalities. We are ruling out infectious etiology given her white count. She is already improving, although she can still not able to provide much details regarding why she was on the ground. -Oncology consult was placed ----Pamidronate ordered 30mg IV given corrected calcium still 12.3 on recheck -AM labs RENE on CKD -Creatinine in May was 1.6-2, today is 4.1 -Suspect dehydration as well as medication contributing, continue with IV fluid -Renal ultrasound ordered -Hold nephrotoxic agents/renally dose medication Rhabdomyolysis -CPK was 649, continue with IV hydration -Troponin was faintly elevated but flat at 80 and 81, likely demand in the setting of rhabdomyolysis Acute on chronic anemia -Her hemoglobin has ranged from 7.4-8 since May, today is 7.3, ED provider reported she was faintly heme positive on guaiac -Patient was transfused 1 unit of packed red blood cells. -Will trend hemoglobin and hematocrit and monitor for signs of bleeding Diabetes mellitus type 2 -Previously on metformin which was discontinued by one of her providers -Hold glipizide -Low-dose sliding scale -POC AC -Diabetic diet Hypertension -Hold lisinopril given RENE Hyperlipidemia -Continue statin tomorrow if CK is improved Pulmonary nodule -Undergoing workup for small cell lung cancer with scheduled bronchoscopy and EBUS procedure next week with Dr. Montez Admission checklist [x] Code status: Full Code - Confirmed with patient and family, MOLST at bedside stating full code. [x] VTE Prophylaxis: SCD [x] Diet order on admission: Dietary Orders (From admission, onward) Start Ordered 07/08/24 1438 Adult diet [facility]; General; Regular Diet effective now Question Answer Comment Location [facility] Diet Type (req) General General Diet Regular 07/08/24 1444 [x] Lines, tubes, drains: IV access [x] Medication reconciliation Health Care proxy with Phone number Dennise Nj daughter [phone] Cosigned by Wayne Donahue MD at 07/15/2024 10:06 AM EST Associated attestation - Wayne Donahue MD - 07/15/2024 10:06 AM EST This is a split/shared visit with RYLEY Rivas. I personally performed the medical decision making (MDM) for the care of this patient on 06/1023 asdocumented below Patient was discussed with Advanced Practice Provider. In brief, this is an 79-year-old woman with a recent Dx of a suspicious pulmonary nodule for which she is going to have a bronchoscopy and EBUS procedure next week with Dr. Montez, comes today after a well check was done on her (upon request of her daughter) and found om the floor at home being unable to get up. She is found weak and confused in the ED. Workup in ED reveals a mild to moderate hyponatremia as well as moderate hypercalcemia with a corrected calcium at 12.1, elevated creatinine at4.1 (RENE) and more anemic than usual. Hyponatremia, anemia and hypercalcemia workup is in progress.Will be hydrated the patient with normal saline 100 cc/h, will transfuse 1 unit of PRBCs transfusion and will consult oncology. May treat with pamidronate as well (this will be discussed with oncology). I personally saw and examined the patient at bedside. I independently obtained further history and reviewed significant updates, labs and imaging. I also contacted pertinent consultants in order to facilitate patient's medical care. Otherwise, I agree with the documentation and plan as outlined in the note below. Wayne Donahue MD 07/15/24 10:06 AM EST documented in this encounter Procedure Notes * Margie Bosch RN - 08/05/2024 1:35 PM EST PCXR completed * Cecily Montez MD - 08/05/2024 12:08 PM EST Preoperative diagnosis: Right upper lobe pulmonary nodule Postoperative diagnosis: Same Operation: Navigational bronchoscopy/radial EBUS with FluoroNav and transbronchial biopsy, protected brushings, and bronchoalveolar lavage right upper lobe pulmonary nodule; linear EBUS with biopsy of R4, L4, and 11R. Surgeon: Cecily Montez MD Pad Extraction Tender: None Specimens: Above for pathology/cytology/microbiology Anesthesia: General Indications: 79-year-old woman with new onset end-stage renal failure on IV dialysis who was found prior to that to have a enlarging irregular shaped pulmonary nodule at the apex of the right upper lobe. PET scan showed increased uptake in this nodule but no increased uptake elsewhere in the chest or outside of the chest. I discussed navigational bronchoscopy/EBUS for diagnostic and possible staging purposes. She understood and agreed to proceed. Operation in detail: The patient was brought to the operating room suite, anesthesia monitoring devices were placed, and was intubated with an 8-1/2 endotracheal tube. The magnetic markers were then placed in the appropriate places and confirmed with the MicroPort ([employer]) software. At this point, a timeout was performed confirming the correct patient site and procedure. A standard bronchoscopy was then done with findings moderate secretions and no endobronchial lesions when viewed down to the subsegmental level bilaterally. The super dimension preregistration was then done with the magnetic guide confirming alignment of the airways with the re-created bronchial tree. At this point, using the navigation technology we navigated to within 2 cm of the nodule in the right upper lobe. We then launched the FluoroNav portion for local registration. With a stable breath-hold we did a fluoroscopic sweep which was ultimately accepted in the nodule was identified 5 mm different. Using our new target we then navigated directly to the nodule and the radial EBUS probe was used toconfirm position of the nodule which was difficult to align although we ultimately correlated CT scan, navigation, and ultrasound for the position of the nodule. An arc point 21-gauge needle was thenused with 3 passes taken on the nodule. Note, it was difficult to penetrate the nodule based on thoracoscopic findings at the time. I decided not to do the cryo due to the difficulty in getting into the nodule. Protected brushings were then done as well as bronchoalveolar lavage. The navigation equipment was then removed, hemostasis was assured, and additional bronchoalveolar lavage was done. The Olympus endobronchial ultrasound scope was then inserted through the endotracheal tube and the airways were visualized down to the segmental level with findings above. A scanning endobronchial ultrasound of the mediastinal stations was then done with the findings 8 mm lymph nodes in the right pa ratracheal and left paratracheal spaces. 3 mm and less lymph nodes in the subcarinal space. 7 mm lymph node in the 11R position.. Right paratracheal lymph nodes were then visualized with the ultrasound and using a 19-gauge Olympus endobronchial ultrasound needle they were biopsied with 3 passes on each lymph node. This was repeated with left paratracheal and 11R. Findings are pending final pathology. Once this was complete, hemostasis was achieved and the scope was removed. The patient was then extubated in the operating room and brought to the recovery room in stable condition. * Maggy Spencer RN - 07/23/2024 4:52 PM ESTAssociated Order(s): INSERT MIDLINE Images from the original note were not included. Midline Insertion Procedure Note Procedure: Insertion of 18g/10cm Bard Powerglide midline Lot: [id number] Exp: 2025-05-28 Indications: Difficult draw with frequent labs/HD pt w/ high chance of needing access with Powerglide approval per renal provider Dr Mehta Procedure Details Sterile technique was used including antiseptics, gloves, hand hygiene, mask, and sheet. US guidance utilized, vein accessed and catheter advanced smoothly. AST wire intact and discarded. 18g midline inserted to the Right Basilic vein per hospital protocol. Flushes smoothly with good blood return. Findings: Catheter fully inserted to 10 cm with 0 cm exposed. Mid upper arm circumference is 37cm. Catheter was flushed with 10 cc NS and sterile CVC dressing with Biopatch applied. Patient did tolerate procedure well. Recommendations: May use for blood draws * Fela Palomo MD - 07/22/2024 4:00 PM EST Interventional Radiology Brief Postprocedure Note Pre-Procedure Diagnosis: The primary encounter diagnosis was Anemia, unspecified type. Diagnoses ofHyponatremia, Acute on chronic renal insufficiency, Acute encephalopathy, and Bilateral leg edema were also pertinent to this visit. Post-Procedure Diagnosis: same Description of procedure: IR Bx Ndl Renal Perc Left Performing Provider: Fela Palomo MD Staff Role Emilie Silva Car Spotter Dorothea Garay Car Spotter Lay Roth Car Spotter Diaz Denise, ILIR CV Invasive Nurse Fela Palomo MD Radiologist Anesthesia: local anesthetic, moderate sedation Significant Findings: none Complications: none Estimated Blood Loss: none Medications (Filter: Administrations occurring from 1448 to 1535 on 07/22/24) As of 07/22/24 1535 midazolam (VERSED) injection (mg) Total dose: 1.5 mg Date/Time Rate/Dose/Volume Action 07/22/24 1508 1 mg Given 1517 0.5 mg Given fentaNYL (PF) (SUBLIMAZE) injection (mcg) Total dose: 50 mcg Date/Time Rate/Dose/Volume Action 07/22/24 1508 25 mcg Given 1517 25 mcg Given Specimens Source Type Kidney, Left Tissue Final Radiology report with images in PACS to follow. The patient tolerated the procedure well without incident or complication and is in stable condition. * Fela Palomo MD - 07/22/2024 2:15 PM EST Interventional Radiology pre procedural note History and physical over 24 hours but within 30 days with no changes. I personally reviewed the History and Physical, interviewed and examined the patient prior to sedation. No changes have occurred in the patient's condition since the History and Physical was completed. Pertinent labs: Lab Results Component Value Date INR 1.3 07/22/2024 PLT 169 07/22/2024 WBC 9.6 07/22/2024 HGB 7.2 (L) 07/22/2024 HCT 24.3 (L) 07/22/2024 EGFR 16 (L) 07/22/2024 Vitals: 79 y.o. Wt Readings from Last 1 Encounters: 07/22/24 78.6 kg (173 lb 3.2 oz) Visit Vitals BP (!) 140/77 (BP Location: Right arm, Patient Position: Lying) Pulse 90 Temp 36.5 ??C (97.7 ??F) (Temporal) Resp 17 Mallampati Classification: II (hard and soft palate, upper portion of tonsils anduvula visible) ASA Classification: ASA 3 - Patient with moderate systemic disease with functional limitations Other pertinent findings: None Diagnosis/Plan: Patient cleared to proceed with IR procedure. Heparin stopped before 8am, normal antixa Fela Palomo MD documented in this encounter Consult Notes * Kayleigh Laguna RD - 07/11/2024 11:22 AM ESTAssociated Order(s): IP CONSULT TO NUTRITION SERVICES 07/11/2024 @ 11:22 AM EST Nutrition Consult Note/Nutrition Assessment Reason for RD Intervention: Assessment Type: RN Consult Reason for Assessment: High MST Score Anthropometrics: Height: 162.5 cm (63.98 ) Weight: 79.1 kg (174 lb 6.4 oz) Weight Method: Actual BMI (Calculated): 30 BMI Class: Overweight IBW (lbs): 120 Current Diet and Supplements: Dietary Orders (From admission, onward) Start Ordered 07/08/24 1438 Adult diet [facility]; General; Regular Diet effective now Question Answer Comment Location [facility] Diet Type (req) General General Diet Regular 07/08/24 3213 History of presenting illness: Patient is a 79 y.o. female with a history of Past Medical History: Diagnosis Date Anemia Arthritis Blindness Decreased vision 11/29/2014 DX:Decreased vision Diabetes mellitus, type 2 (CMS/HCC) 02/14/2014 DX:Diabetes mellitus, type 2 (HCC) Family history of early CAD 03/01/2014 DX:Family history of early CAD Family history of factor V Leiden mutation 12/12/2015 DX:Family history of factor V Leiden mutation HL (hearing loss) Hyperlipidemia 02/14/2014 DX:Hyperlipidemia Hypertension 02/14/2014 DX:Hypertension Joint pain Lung nodule Microalbuminuria 09/22/2016 DX:Microalbuminuria Osteoporosis 02/14/2014 DX:Osteoporosis Past Surgical History: Procedure Laterality Date CATARACT EXTRACTION Bilateral 2019 PROCEDURE: HISTORICAL CATARACT REMOVAL OTHER SURGICAL HISTORY 05/2012 PROCEDURE: ---- OTHER ----; COMMENT: lumbar microdiscectomy admitted 07/08/2024 with Acute encephalopathy. Food/Nutrition History: Previous Diet / Nutrition Education / Counseling: Per MST screeening, pt reports weight loss of 24-33 lb in past 3 months, and reports poor PO intake. Pt living by herself prior to admission, but hassupport from children. History of DM- takes glipizide at home. No noted food allergies. Appetite LEDGER CLERK: Poor Intake LEDGER CLERK: Decreased Weight History: Wt Readings from Last 20 Encounters: 07/11/24 79.1 kg (174 lb 6.4 oz) 06/17/24 76.2 kg (168 lb) 06/13/24 76.5 kg (168 lb 9.6 oz) 06/06/24 76.4 kg (168 lb 6.4 oz) 05/30/24 76.7 kg (169 lb) 05/23/24 76.2 kg (168 lb) 05/13/24 77.6 kg (171 lb) 04/27/24 78.8 kg (173 lb 11.2 oz) 04/18/24 79.8 kg (176 lb) 04/12/24 80.3 kg (177 lb) 04/08/24 80.2 kg (176 lb 14.4 oz) 03/22/24 80.9 kg (178 lb 6.4 oz) 03/07/24 79.8 kg (176 lb) 01/25/24 80.4 kg (177 lb 3.2 oz) 10/28/23 84.8 kg (187 lb) 07/29/23 80.7 kg (178 lb) 07/13/23 80.5 kg (177 lb 6.4 oz) 06/15/23 79.8 kg (176 lb) 04/06/23 79.8 kg (176 lb) 01/26/23 83.9 kg (184 lb 14.4 oz) Weight history in EMR indicates weight has been stable between 168-178 lb over past year ([id number] lb). Weight in 12/2022 was 184 lb indicating 10 lb (5.4%) weight loss over course of 18 months. Subjective Assessment: Pt seen for nutrition consult/ high MST score. Pt admitted for fall, RENE and hyponatremia. Pt recently diagnosed with lung nodule with planned bronchoscopy and EBUS. Seen by OT and PT- [facility] No meals recorded since admission; appetite noted to be fair/good. Nutrition-Related Lab Values: Results from last 7 days Lab Units 07/11/24 1110 07/11/24 0817 07/11/24 0621 07/10/24 0840 07/10/24 0516 07/08/24 1752 07/08/24 1110 SODIUM mmol/L -- -- 130* -- 133 < > 126* POTASSIUM mmol/L -- -- 3.7 -- 3.8 < > 4.2 MAGNESIUM mg/dL -- -- -- -- 1.8* < > 2.1 CHLORIDE mmol/L -- -- 102 -- 105 < > 93* CO2 mmol/L -- -- 19* -- 20* < > 21 BUN mg/dL -- -- 69* -- 65* < > 59* CREATININE mg/dL -- -- 4.36* -- 4.19* < > 4.10* EGFR mL/min/1.73m2 -- -- 10* -- 10* < > 10* CALCIUM mg/dL -- -- 8.2* -- 8.5 < > 10.6* BILIRUBIN TOTAL mg/dL -- -- -- -- -- -- 0.4 ALK PHOS unit/L -- -- -- -- -- -- 149* ALT unit/L -- -- -- -- -- -- 39 AST unit/L -- -- -- -- -- -- 57* POCT GLUCOSE mg/dL 301* < > -- < > -- < > -- GLUCOSE mg/dL -- -- 174* -- 167* < > 265* WBC AUTO K/mcL -- -- 18.4* -- 16.9* < > 18.9* < > = values in this interval not displayed. Lab Results Component Value Date LIPASE <10 (L) 07/08/2024 Medications: atorvastatin, 10 mg, oral, Nightly ferric gluconate, 125 mg, intravenous, Daily insulin lispro, 1-6 Units, subcutaneous, Before meals & nightly pantoprazole, 40 mg, oral, q AM AC polyetheylene glycol, 17 g, oral, Daily sodium chloride, 10 mL, intravenous, BID CONTINUOUS: lactated Ringer's, 100 mL/hr PRN medications: acetaminophen, dextrose 50%, dextrose 50%, dextrose, dextrose, glucagon injection,hydrALAZINE, HYDROmorphone, naloxone, ondansetron, oxyCODONE, artificial tears, Insert peripheral IV AND Maintain IV access AND Saline lock IV AND sodium chloride AND sodium chloride,sodium chloride Food/Nutrition-Current Status: Intake Type: P.O. Appetite: (Good/fair) Intake Amount (%): Unable to Assess (No meals recorded since admission) Intake Assessment: Unable to Assess (No meals recorded since admission) Nutrition Focused Physical Findings: Overall Appearance: Chart reviewed remotely- unable to perform nutrition focused physical exam Skin: Skin intact per front end engineer Nutrition Diagnosis: Code Type: None Identified Status: New Diagnosis: Unintentional Weight Loss Etiology: Changes in taste and appetite or preference Symptoms: pt report of 24-33 lb weight loss in 3 months prior to admission (weight history in EMR indicating weight loss of 10 lb within 18 months) Nutrition Interventions: Diet Order, Medical Food Supplement, Vitamin/Mineral Supplement - POCs trending up to 301- will change to 75 gm carb/meal diet. Will also add no added salt restriction given history of RENE on CKD. - Trial glucerna BID in setting of reported weight loss and poor PO; adjust as needed on follow up. - If pt consuming <65% of meals on follow up, recommend multivitamin (pending renal function) and 100 mg thiamine - Collect nutrition history/ perform nutrition focused physical exam as able on follow up. Goals: Patient will initially consume at least 50% of meals. , Patient will consume ONS., Monitor/control glucose levels, Improvement in renal labs., Electrolytes within normal range., Maintain weight., Stooling appropriately., and Maintain skin integrity. Monitoring/Evaluation: Weight, Fluid/Beverage Intake, Food Intake, Medical Food Supp/Oral Nutrition Supp Follow Up: Nutrition Priority Level: High Please consult nutrition if needed sooner. RD remains available and will continue to follow. Signature: Kayleigh Laguna RD * Chencho Wayne MD - 07/10/2024 7:49 PM EST Images from the original note were not included. Reason for Consultation: Acute kidney injury and hyponatremia History of Present Illness: Mrs. Contreras is a 79-year old female with PMH that shows pulmonary nodule undergoing workup for squamous cell lung cancer with scheduled bronchoscopy and EBUS procedure next week with Dr. Montez, hypertension, hyperlipidemia, CKD, iron deficiency anemia, diabetes mellitus type 2 who was found down [facility] floor and was brought in by [facility] She was unsure the details of how long she had been on the ground and how she ended up there they decided to transfer her to the hospital for further evaluation. She was initially confused in the ED.She states that she has had a dry cough and has had more weakness. She denies any fevers or chills,chest pain, shortness of breath, nausea, vomiting, abdominal pain, diarrhea, leg swelling. She is legally blind so she is unaware if her stool was bloody. In review of her labs she was noted to be hyponatremic but only 131/132 in May. Her creatinine was 1.6-2 and her hemoglobin was 7.4-8.2 andher white count was 12- 13. She also follows with Dr. Bryant. In the ER vitals are as follows: Temperature of 36.4, heart rate 96, respirate of 16, blood pressure 165/70 and pulse ox of 96% on room air. Labs notable for sodium of 126, glucose of 265, BUN of 59,creatinine of 4.1, troponin of 80, 81, wbcc 18.9, hgb 7.3, hct 23.7, ua does not appear infected. CT of the cervical spine showed no acute cervical spine fracture. CT of the head showed no acute intracranial abnormality. Patient was transfused 1 unit of packed red blood cells. Patient was admitted to intermittent service and renal consult been requested for evaluation of RENE. Patient is a poor historian at the present time. All history is obtained from patient Patient was seen by doctor for routine And no intervention at this juncture. SUBJECTIVE Review of Systems General: Denies fever or chills. Lungs: Denies cough, shortness of breath, chest congestion. Heart: Denies chest pain, palpitations, orthopnea, dyspnea on exertion, or edema. Abdomen: Denies change in appetite, nausea, vomiting, diarrhea, or constipation, or abdominal pain. : Denies hesitancy, frequency, burning with urination, or blood in urine. Musculoskeletal: Denies muscle pain or weakness, denies any joint swelling. Skin: Denies skin changes, rashes, or open lesions. Past Medical History: Diagnosis Date Anemia Arthritis Blindness Decreased vision 11/29/2014 DX:Decreased vision Diabetes mellitus, type 2 ([facility]/HCC) 02/14/2014 DX:Diabetes mellitus, type 2 ([facility]) Family history of early CAD 03/01/2014 DX:Family history of early CAD Family history of factor V Leiden mutation 12/12/2015 DX:Family history of factor V Leiden mutation HL (hearing loss) Hyperlipidemia 02/14/2014 DX:Hyperlipidemia Hypertension 02/14/2014 DX:Hypertension Joint pain Lung nodule Microalbuminuria 09/22/2016 DX:Microalbuminuria Osteoporosis 02/14/2014 DX:Osteoporosis Past Surgical History: Procedure Laterality Date CATARACT EXTRACTION Bilateral 2020 PROCEDURE: HISTORICAL CATARACT REMOVAL OTHER SURGICAL HISTORY 05/2012 PROCEDURE: ---- OTHER ----; COMMENT: lumbar microdiscectomy Social History Socioeconomic History Marital status: Spouse name: Not on file Number of children: Not on file Years of education: Not on file Highest education level: Not on file Occupational History Not on file Tobacco Use Smoking status: Never Passive exposure: Never Smokeless tobacco: Never Substance and Sexual Activity Alcohol use: No Drug use: No Sexual activity: Not on file Other Topics Concern Not on file Social History Narrative 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 Family History Problem Relation Name Age of Onset Coronary artery disease Father Heart attack Father Hyperlipidemia Mother Hypertension Mother No Known Problems Daughter Coronary artery disease Son NEEDS HEART TRANSPLANT Diabetes Son Other (Other: Other) Son CIDP No Known Problems Son Lymphoma Brother non-Hodgkins Lung cancer Brother No Known Problems Brother Other (Other: Other) Brother No Known Problems Sister No Known Problems Sister No Known Problems Sister No Known Problems Sister Home Medications CALCIUM CARBONATE ORAL Calcium 600mg Take 1 tablet (600 mg total) by mouth daily cetirizine (ZyrTEC) 10 mg chewable tablet Take 1 tablet (10 mg total) by mouth daily., cholecalciferol (VITAMIN D-3) 50 mcg (2,000 unit) capsule Take 1 capsule (2,000 Units total) by mouth 1 (one) time each day. CRANBERRY ORAL Take by mouth ferrous sulfate 325 mg (65 mg iron) EC tablet Do not crush, chew, or split. Take 1 tablet (325 mg total) by mouth every morning with breakfast glipiZIDE (GLUCOTROL XL) 5 mg 24 hr tablet TAKE 2 TABLETS BY MOUTH IN THE MORNING AND TAKE 1 TABLETBY MOUTH IN THE AFTERNOON (WITH MEALS) lisinopriL (PRINIVIL,ZESTRIL) 10 mg tablet Take 1 tablet (10 mg total) by mouth daily simvastatin (ZOCOR) 20 mg tablet Take 1 tablet (20 mg total) by mouth every night at bedtime Allergies: No Known Allergies Current Medications: atorvastatin, 10 mg, oral, Nightly insulin lispro, 1-6 Units, subcutaneous, Before meals & nightly pantoprazole, 40 mg, oral, q AM AC polyetheylene glycol, 17 g, oral, Daily sodium chloride, 10 mL, intravenous, BID PRN medications: acetaminophen, dextrose 50%, dextrose 50%, dextrose, dextrose, glucagon injection,hydrALAZINE, HYDROmorphone, naloxone, ondansetron, oxyCODONE, artificial tears, Insert peripheral IV AND Maintain IV access AND Saline lock IV AND sodium chloride AND sodium chloride,sodium chloride OBJECTIVE Physical Exam: Current Vitals: Blood pressure (!) 151/67, pulse 100, temperature 36.7 ??C (98 ??F), temperature source Temporal, resp. rate 18, height 1.625 m (63.98 ), weight 81.8 kg (180 lb 4.8 oz), SpO2 99%. Intake/Output: I/O last 3 completed shifts: In: 1056 (12.9 mL/kg) [P.O.:100; I.V.:956 (11.7 mL/kg)] Out: 1150 (14.1 mL/kg) [Urine:1150 (0.4 mL/kg/hr)] Weight: 81.8 kg General : Lying comfortably in bed in no acute distress HEENT: Normocephalic, sclerae anicteric, buccal mucosa moist no oral lesions Neck: Supple, symmetrical, trachea midline, no JVD Lungs: Clear to auscultation bilaterally, respirations unlabored Chest wall: No tenderness or deformity Heart: Regular rate and rhythm. No murmurs. No JVD. No hepatojugular reflux. Abdomen: Soft, non-tender, bowel sounds active all four quadrants. Extremities: Extremities normal, atraumatic, no cyanosis or edema Pulses: 2+ and symmetric all extremities Skin: Skin warm, dry, and intact with no visible rashes, petechia, or icterus. Neurologic: Awake, alert, appropriate. No overt focal deficits. Laboratory Data: Urine No results found for: COLORUA , CLARITYUA , SPECGRAVUA , PHUA , PROTUA , GLUCOSEUA , KETONESUA , BILIRUBINUA , BLOODUA , UROBILINOGUA , NITRITEUA Lab Results Component Value Date MICROALBUR 141.0 (H) 06/06/2024 CBC Results from last 7 days Lab Units 07/10/24 0516 07/09/24 0625 07/08/24 2030 WBC AUTO K/mcL 16.9* 18.4* 20.5* HEMOGLOBIN g/dL 7.6* 8.3* 9.2* HEMATOCRIT % 24.4* 26.1* 30.0* PLATELETS K/mcL 277 333 332 CMP Results from last 7 days Lab Units 07/10/24 1611 07/10/24 0840 07/10/24 0516 07/09/24 0859 07/09/24 0625 07/08/24204507/08/24 2030 SODIUM mmol/L -- -- 133 -- 131* -- 130* 130* POTASSIUM mmol/L -- -- 3.8 -- 3.8 -- 4.0 4.0 CHLORIDE mmol/L -- -- 105 -- 101 -- 98 98 CO2 mmol/L -- -- 20* -- 21 -- 22 22 BUN mg/dL -- -- 65* -- 63* -- 64* CREATININE mg/dL -- -- 4.19* -- 4.07* -- 4.32* EGFR mL/min/1.73m2 -- -- 10* -- 11* -- 10* POCT GLUCOSE mg/dL 287* < > -- < > -- < > -- GLUCOSE mg/dL -- -- 167* -- 170* -- 261* CALCIUM mg/dL -- -- 8.5 -- 9.5 -- 10.3 < > = values in this interval not displayed. Anemia MBD Lab Results Component Value Date IRON 20 (L) 07/08/2024 TIBC 186 (L) 07/08/2024 FERRITIN 708 (H) 07/08/2024 Lab Results Component Value Date PTH 10.5 (L) 07/10/2024 CALCIUM 8.5 07/10/2024 CAION 5.66 (H) 07/09/2024 ASSESSMENT AND PLAN Acute kidney injury. RENE likely due to prerenal state. Obstruction has been ruled out. Patient was on MAK inhibitor lisinopril which would have contributed to her renal insufficiency. Patient is hypercalcemic and that could be a competent of hypercalcemia induced polyuria/RENE Cannot rule out acute GN/interstitial disease No urine studies to common the possibility of ATN Due to patient of fall CPK level was within normal limits Chronic kidney disease stage IIIb/IV at baseline in setting of longstanding hypertension diabetes with likely hypertensive/diabetic renal disease. We need to rule out myeloma and stations anemia and hypercalcemia Hyponatremia which is hyperosmolar with serum osmolality about 300 Anemia which is iron deficient. We need to rule out myeloma. She could also have a component of erythropoietin deficiency Hypercalcemia. PTH is low consistent with malignancy related hypercalcemia Hypertension Right upper lobe pulmonary nodule -Avoid nephrotoxins, such as NSAIDs, iodinated contrast, and phosphate enema, as able. -Have ordered spot urine for electrolytes protein creatinine -Initiated patient on LR at 75 mL/h x 1 L -Follow-up calcium level -Agree with transfusion. IV iron Ferrlecit ordered starting tomorrow -Dose all mediations for appropriate eGFR -Follow-up renal function and electrolytes in a.m. -Sodium level is already improved Thank you again for the consultation on your patient, we will be happy to follow along with you. * Jaime Bryant MD - 07/09/2024 3:43 PM EST Consults History Of Present Illness (includes Chief Complaint) Ana Contreras is a 79 y.o. female who has multiple medical issues, I saw patient few weeks ago regarding suspicious pulmonary nodule, patient has FDG avid right upper lung mass and few suspicious lung nodule, I referred patient to Dr. Smith because patient had needle biopsy of right lung lesion n egative/inconclusive, patient supposed to have EBUS and possible lung mass/mediastinal lymph node biopsy schedule in next few days. Patient came to hospital when she found at home lying on the floor (unclear duration close ), patient found to have acute renal insufficiency as well as significant ane kris/hypercalcemia and patient was confused on arrival to the hospital, I was asked to evaluate the patient Past Medical History Type 2 diabetes Coronary artery disease History of factor V Leiden mutation Dyslipidemia Hypertension Arthritis Lung mass/nodules Arthritis Anemia Legally blind Surgical History Cataract surgery Lung biopsy Family History Noncontributory Social History She never smoke She denies alcohol use or abuse She is , lives by herself Allergies Patient has no known allergies. Home Medications Medications Prior to Admission Medication Sig Dispense Refill Last Dose CALCIUM CARBONATE ORAL Calcium 600mg Take 1 tablet (600 mg total) by mouth daily (Patient not taking: Reported on 07/08/2024) Unknown cetirizine (ZyrTEC) 10 mg chewable tablet Take 1 tablet (10 mg total) by mouth daily., Unknown cholecalciferol (VITAMIN D-3) 50 mcg (2,000 unit) capsule Take 1 capsule (2,000 Units total) by mouth 1 (one) time each day. Unknown CRANBERRY ORAL Take by mouth Unknown ferrous sulfate 325 mg (65 mg iron) EC tablet Do not crush, chew, or split. Take 1 tablet (325 mg total) by mouth every morning with breakfast Unknown glipiZIDE (GLUCOTROL XL) 5 mg 24 hr tablet TAKE 2 TABLETS BY MOUTH IN THE MORNING AND TAKE 1 TABLETBY MOUTH IN THE AFTERNOON (WITH MEALS) 270 tablet 0 Unknown lisinopriL (PRINIVIL,ZESTRIL) 10 mg tablet Take 1 tablet (10 mg total) by mouth daily Unknown simvastatin (ZOCOR) 20 mg tablet Take 1 tablet (20 mg total) by mouth every night at bedtime Unknown Review of Systems Patient feeling fair today, still have some confusion according to family Patient denies any chest pain or any significant respiratory symptom Patient denies any significant GI symptom Patient complaining of some pain in the lower extremities Patient denies any obvious blood loss Physical Exam Alert and partially oriented HEENT nonicteric sclera pale conjunctiva There is no significant enlarged neck lymph node Lungs distant breath sound Abdomen soft distended obese Extremities bilateral trace edema with no evidence of petechiae but few old ecchymosis Last Recorded Vitals Blood pressure (!) 148/62, pulse 109, temperature 36.5 ??C (97.7 ??F), resp. rate 16, height 1.625 m (63.98 ), weight 74.6 kg (164 lb 6.4 oz), SpO2 100%.Body mass index is 28.24 kg/m??.Body surface area is 1.8 meters squared. Relevant Results WBC 18,400, hemoglobin 8.3 g, hematocrit 26.1%, MCV 74 and platelet count 333 BUN 63 creatinine 4.07 which is slightly improved Recent calcium down to 9.6, on arrival yesterday patient calcium was more than 12 Creatinine kinase down to 172 it was 650 yesterday Assessment/Plan Principal Problem: Acute encephalopathy Patient is an 79-year-old female who is a non-smoker, has right FDG avid right upper lungmass/nodule as well as some suspicious pulmonary nodule, patient scheduled to have EBUS and tissue sampling by Dr. Navarro in next few days, patient was at home found on the ground, lying for few hoursat least, patient on arrival to hospital have significant renal insufficiency, hypercalcemia, microcytic anemia etc., I recommended to give low-dose pamidronate, 100 recent calcium is well within normal limit, patient had microcytic anemia may be some occult blood loss in her renal insufficiency may be acute on chronic. From oncological standpoint I would not recommend any intervention at this time except try to have EBUS schedule for July [address] Navarro, she does not need any further biphosphonate but she can get benefit from RBC transfusion and rule out any possibility of any occult blood loss etc. as well as her renal function should gradually improve, can get input from air intelligence officer, please call me for an y question documented in this encounter Plan of Treatment Upcoming Encounters Date Type Department Care Team (Late st Contact Info) Description 08/10/2024 10:00 AM EST Office Visit [facility] Hematology Oncology [address] [place] [phone] Jaime Bryant MD [address] [place] [address] 08/15/2024 1:30 PM EST Office Visit Thoracic Surgery - [place] [address] [phone] Cecily Montez MD [address] [address] 08/23/2024 3:00 PM EST Office Visit Gastroenterology - 299 [facility] [address] [phone] Josiane Smith NP [address] [address] 08/24/2024 11:15 AM EST [facility] [address] [facility] [place] [phone] Eloisa Vázquez DO [address] [place] [address] 09/05/2024 10:00 AM EDT Office Visit Endocrinology - [place] [address] [place] [address] Kathy Michelle PA [address] [place] [address] 09/06/2024 11:00 AM EDT Ancillary Procedure [facility] - [address] [place] [phone] 01/24/2025 1:30 PM EDT Consult Nephrology - [place] [address] [place] [phone] Chencho Wayne MD [address] [place] [address] Pending Results Name Type Priority Associated Diagnoses Date/Time Tissue exam Pathology and Cytology Routine Hyponatremia Acute on chronic renal insufficiency Bilateral leg edema 07/22/2024 3:13 PM EST AP Kidney biopsy Pathology and Cytology Routine Hyponatremia Acute on chronic renal insufficiency Bilateral leg edema 07/22/2024 3:13 PM EST Transfuse RBC: 1 Units Transfusion Administration Routine 08/02/2024 6:27 PM EST Transfuse RBC Transfusion Administration Routine 08/02/2024 6:26 PM EST XR Chest 1 View Imaging Routine 12:29 PM EST Non-gynecologic cytology Pathology and Cytology Routine Pulmonary nodule 08/05/2024 12:20 PM EST Culture fungal, other Microbiology Routine Pulmonary nodule 08/05/2024 12:32 PM EST Culture, afb and smear with reflex to identification and susceptibility Microbiology Routine Pulmonary nodule 08/05/2024 12:32 PM EST Culture bronchial with gram stain Microbiology Routine Pulmonary nodule 08/05/2024 12:32 PM EST Scheduled Orders Name Type Priority Associated Diagnoses Order Schedule Tissue exam Pathology and Cytology Timed Hyponatremia Acute on chronic renal insufficiency Bilateral leg edema Release Upon Ordering for 1 Occurrences starting 07/22/2024, 1 completed AP Kidney biopsy Pathology and Cytology Routine Hyponatremia Acute on chronic renal insufficiency Bilateral leg edema Once for 1 Occurrences starting 07/22/2024 until 07/22/2024 XR Chest 1 View Imaging Routine Once for 1 Occurrences starting 08/05/2024 until 08/05/2024 Non-gynecologic cytology Pathology and Cytology Timed Pulmonary nodule Release Upon Ordering for 1 Occurrences starting 08/05/2024, 1 completed Culture fungal, other Microbiology Timed Pulmonary nodule Release Upon Ordering for 1 Occurrences starting 08/05/2024 documented as of this encounter Procedures Procedure Name Priority Date/Time Associated Diagnosis Comments POCT GLUCOSE BLOOD Routine 08/06/2024 11 :07 AM EST POCT GLUCOSE BLOOD Routine 08/06/2024 7: 26 AM EST POCT GLUCOSE BLOOD Routine 08/05/2024 8: 08 PM EST POCT GLUCOSE BLOOD Routine 08/05/2024 4: 40 PM EST XR CHEST 1 VIEW STAT 08/05/2024 1:43 PM EST POCT GLUCOSE BLOOD Routine 08/05/2024 1: 40 PM EST CULTURE BRONCHIAL WITH GRAM STAIN Routine 08/05/2024 12:32 PM EST Pulmonary nodule ..CONCENTRATION Routine 08/05/2024 12:32 PM EST Pulmonary nodule CULTURE, AFB AND SMEAR WITH REFLEX TO IDENTIFICATION AND SUSCEPTIBILITY Routine 08/05/2024 12:32 PM EST Pulmonary nodule ACID FAST BACILLI STAIN Routine 08/05/19 12:32 PM EST Pulmonary nodule BASIC METABOLIC PANEL STAT 08/05/2024 7:04 AM EST COMPLETE BLOOD COUNT Timed 08/05/2024 7:03 AM EST POCT GLUCOSE BLOOD Routine 08/04/2024 8: 39 PM EST POCT GLUCOSE BLOOD Routine 08/04/2024 5: 36 PM EST HEMODIALYSIS INPATIENT Routine 11:39 AM EST POCT GLUCOSE BLOOD Routine 08/04/2024 11 :05 AM EST POCT GLUCOSE BLOOD Routine 08/04/2024 8: 03 AM EST CREATININE, SERUM Timed 08/04/2024 6:3 1 AM EST POCT GLUCOSE BLOOD Routine 08/03/2024 9: 59 PM EST POCT GLUCOSE BLOOD Routine 08/03/2024 3: 47 PM EST POCT GLUCOSE BLOOD Routine 08/03/2024 12 :35 PM EST HEPATITIS B SURFACE ANTIGEN WITH CONFIRMATION Routine 08/03/2024 8:49 AM EST HEPATITIS B SURFACE ANTIBODY QUANTITATIVE Routine 08/03/2024 8:49 AM EST COMPLETE BLOOD COUNT STAT 08/03/2024 8:49 AM EST CBC WITH AUTO DIFFERENTIAL Routine 08/03/2024 6:01 AM EST CBC AND DIFFERENTIAL Routine 08/03/2024 6:01 AM EST PHOSPHORUS Routine 08/03/2024 6:01 AM EST MAGNESIUM Routine 08/03/2024 6:01 AM EST POCT GLUCOSE BLOOD Routine 08/02/2024 7: 33 PM EST TRANSFUSE RED BLOOD CELLS Routine 08/02/2024 6:26 PM EST POCT GLUCOSE BLOOD Routine 08/02/2024 4: 27 PM EST TYPE AND SCREEN Routine 08/02/2024 3:04 PM EST PREPARE RBC Routine 08/02/2024 2:09 PM EST HEMODIALYSIS INPATIENT Routine 11:52 AM EST POCT GLUCOSE BLOOD Routine 08/02/2024 11 :26 AM EST POCT GLUCOSE BLOOD Routine 08/02/2024 7: 46 AM EST COMPLETE BLOOD COUNT Timed 08/02/2024 6:06 AM EST POCT GLUCOSE BLOOD Routine 08/01/2024 7: 43 PM EST POCT GLUCOSE BLOOD Routine 08/01/2024 5: 20 PM EST POCT GLUCOSE BLOOD Routine 08/01/2024 11 :03 AM EST POCT GLUCOSE BLOOD Routine 08/01/2024 8: 59 AM EST POCT GLUCOSE BLOOD Routine 08/01/2024 7: 34 AM EST CBC WITH AUTO DIFFERENTIAL Routine 08/01/2024 6:59 AM EST CBC AND DIFFERENTIAL Routine 08/01/2024 6:59 AM EST BASIC METABOLIC PANEL Routine 08/01/2024 6:59 AM EST POCT GLUCOSE BLOOD Routine 07/31/2024 8: 23 PM EST POCT GLUCOSE BLOOD Routine 07/31/2024 4: 20 PM EST HEMOGLOBIN AND HEMATOCRIT Routine 07/31/2024 2:30 PM EST POCT GLUCOSE BLOOD Routine 07/31/2024 11 :22 AM EST POCT GLUCOSE BLOOD Routine 07/31/2024 8: 06 AM EST CBC WITH AUTO DIFFERENTIAL Routine 07/31/2024 5:43 AM EST CBC AND DIFFERENTIAL Routine 07/31/2024 5:43 AM EST BASIC METABOLIC PANEL Routine 07/31/2024 5:43 AM EST POCT GLUCOSE BLOOD Routine 07/30/2024 7: 51 PM EST HEMODIALYSIS INPATIENT Routine 6:00 PM EST POCT GLUCOSE BLOOD Routine 07/30/2024 5: 02 PM EST HEMOGLOBIN AND HEMATOCRIT Routine 07/30/2024 3:32 PM EST HEPATIC FUNCTION PANEL STAT 11:52 AM EST POCT GLUCOSE BLOOD Routine 07/30/2024 11 :22 AM EST POCT GLUCOSE BLOOD Routine 07/30/2024 7: 47 AM EST HEPARIN ANTI XA Routine 07/30/2024 6:10 AM EST COMPLETE BLOOD COUNT Timed 07/30/2024 6:10 AM EST POCT GLUCOSE BLOOD Routine 07/29/2024 8: 11 PM EST POCT GLUCOSE BLOOD Routine 07/29/2024 4: 19 PM EST HEPATITIS B SURFACE ANTIGEN WITH CONFIRMATION Routine 07/29/2024 11:51 AM EST POCT GLUCOSE BLOOD Routine 07/29/2024 11 :23 AM EST CBC WITH AUTO DIFFERENTIAL Routine 07/29/2024 5:54 AM EST HEPARIN ANTI XA Routine 07/29/2024 5:54 AM EST CBC AND DIFFERENTIAL Routine 07/29/2024 5:54 AM EST BASIC METABOLIC PANEL Routine 07/29/2024 5:54 AM EST HEPARIN ANTI XA Routine 07/28/2024 11:42 PM EST HEPARIN ANTI XA Routine 07/28/2024 7:46 PM EST POCT GLUCOSE BLOOD Routine 07/28/2024 7: 41 PM EST POCT GLUCOSE BLOOD Routine 07/28/2024 4: 54 PM EST HEPATITIS B CORE ANTIBODY IGM STAT 07/28/2024 12:19 PM EST HEPATITIS B SURFACE ANTIBODY STAT 07/28/2024 12:19 PM EST POCT GLUCOSE BLOOD Routine 07/28/2024 11 :02 AM EST HEMODIALYSIS INPATIENT Routine 10:38 AM EST CBC WITH AUTO DIFFERENTIAL Routine 07/28/2024 9:51 AM EST HEPARIN ANTI XA Routine 07/28/2024 9:51 AM EST CBC AND DIFFERENTIAL Routine 07/28/2024 9:51 AM EST BASIC METABOLIC PANEL Routine 07/28/2024 9:51 AM EST POCT GLUCOSE BLOOD Routine 07/28/2024 9: 29 AM EST HEPARIN ANTI XA Timed 07/28/2024 2:09 AM EST HEPARIN ANTI XA Timed 07/27/2024 11:55 PM EST HEPARIN ANTI XA Timed 07/27/2024 9:31 PM EST POCT GLUCOSE BLOOD Routine 07/27/2024 8: 12 PM EST POCT GLUCOSE BLOOD Routine 07/27/2024 4: 34 PM EST COMPLETE BLOOD COUNT STAT 07/27/2024 3:25 PM EST HEPARIN ANTI XA STAT 07/27/2024 1:42 PM EST BASIC METABOLIC PANEL STAT 07/27/2024 1:42 PM EST POCT GLUCOSE BLOOD Routine 07/27/2024 11 :54 AM EST CBC WITH AUTO DIFFERENTIAL Routine 07/27/2024 6:27 AM EST HEPARIN ANTI XA Routine 07/27/2024 6:27 AM EST COMPLETE BLOOD COUNT Timed 07/27/2024 6:27 AM EST CBC AND DIFFERENTIAL Routine 07/27/2024 6:27 AM EST BASIC METABOLIC PANEL Routine 07/27/2024 6:27 AM EST POCT GLUCOSE BLOOD Routine 07/26/2024 8: 23 PM EST POCT GLUCOSE BLOOD Routine 07/26/2024 4: 28 PM EST POCT GLUCOSE BLOOD Routine 07/26/2024 11 :15 AM EST HEMODIALYSIS INPATIENT Routine 8:15 AM EST POCT GLUCOSE BLOOD Routine 07/26/2024 8: 08 AM EST HEPARIN ANTI XA Routine 07/26/2024 6:06 AM EST POCT GLUCOSE BLOOD Routine 07/25/2024 9: 22 PM EST POCT GLUCOSE BLOOD Routine 07/25/2024 4: 02 PM EST POCT GLUCOSE BLOOD Routine 07/25/2024 2: 56 PM EST POCT GLUCOSE BLOOD Routine 07/25/2024 8: 18 AM EST CBC WITH AUTO DIFFERENTIAL Routine 07/25/2024 5:35 AM EST HEPARIN ANTI XA Routine 07/25/2024 5:35 AM EST CBC AND DIFFERENTIAL Routine 07/25/2024 5:35 AM EST BASIC METABOLIC PANEL Routine 07/25/2024 5:35 AM EST HEMODIALYSIS INPATIENT Routine 5:14 AM EST POCT GLUCOSE BLOOD Routine 07/24/2024 7: 58 PM EST POCT GLUCOSE BLOOD Routine 07/24/2024 3: 24 PM EST POCT GLUCOSE BLOOD Routine 07/24/2024 11 :39 AM EST POCT GLUCOSE BLOOD Routine 07/24/2024 7: 32 AM EST CBC WITH AUTO DIFFERENTIAL Routine 07/24/2024 6:48 AM EST HEPARIN ANTI XA Routine 07/24/2024 6:48 AM EST COMPLETE BLOOD COUNT Timed 07/24/2024 6:48 AM EST CBC AND DIFFERENTIAL Routine 07/24/2024 6:48 AM EST BASIC METABOLIC PANEL Routine 07/24/2024 6:48 AM EST HEPARIN ANTI XA Routine 07/24/2024 12:07 AM EST POCT GLUCOSE BLOOD Routine 07/23/2024 7: 35 PM EST INSERT MIDLINE Routine 07/23/2024 4:52 PM EST POCT GLUCOSE BLOOD Routine 07/23/2024 4: 30 PM EST HEPARIN ANTI XA Routine 07/23/2024 4:08 PM EST TRANSFUSE RED BLOOD CELLS Routine 07/23/2024 3:36 PM EST TYPE AND SCREEN Routine 07/23/2024 12:31 PM EST POCT GLUCOSE BLOOD Routine 07/23/2024 12 :12 PM EST PREPARE RBC Routine 07/23/2024 11:14 AM EST HEPARIN ANTI XA Routine 07/23/2024 8:40 AM EST CBC WITH AUTO DIFFERENTIAL Routine 07/23/2024 5:44 AM EST CBC AND DIFFERENTIAL Routine 07/23/2024 5:44 AM EST BASIC METABOLIC PANEL Routine 07/23/2024 5:44 AM EST HEPARIN ANTI XA Routine 07/23/2024 2:05 AM EST POCT GLUCOSE BLOOD Routine 07/22/2024 8: 10 PM EST HEMOGLOBIN AND HEMATOCRIT Timed 07/22/2024 6:40 PM EST POCT GLUCOSE BLOOD Routine 07/22/2024 4: 10 PM EST IR BX NDL RENAL PERC LEFT Routine 07/22/2024 3:53 PM EST PROTHROMBIN TIME WITH INR Add-On 07/22/2024 11:00 AM EST HEPARIN ANTI XA Timed 07/22/2024 11:00 AM EST SST - GOLD Routine 07/22/2024 10:53 AM EST EXTRA TUBES Routine 07/22/2024 10:53 AM EST LAVENDER - EDTA Routine 07/22/2024 10:53 AM EST POCT GLUCOSE BLOOD Routine 07/22/2024 10 :48 AM EST POCT GLUCOSE BLOOD Routine 07/22/2024 8: 10 AM EST HEMODIALYSIS INPATIENT Routine 7:36 AM EST POCT GLUCOSE BLOOD Routine 07/22/2024 3: 43 AM EST CBC WITH AUTO DIFFERENTIAL Routine 07/22/2024 3:11 AM EST CBC AND DIFFERENTIAL Routine 07/22/2024 3:11 AM EST BASIC METABOLIC PANEL Routine 07/22/2024 3:11 AM EST HEPARIN ANTI XA Timed 07/22/2024 3:09 AM EST POCT GLUCOSE BLOOD Routine 07/21/2024 8: 10 PM EST HEPARIN ANTI XA STAT 07/21/2024 8:02 PM EST POCT GLUCOSE BLOOD Routine 07/21/2024 5: 04 PM EST POCT GLUCOSE BLOOD Routine 07/21/2024 1: 57 PM EST COMPLETE BLOOD COUNT STAT 07/21/2024 8:55 AM EST BASIC METABOLIC PANEL STAT 07/21/2024 8:55 AM EST POCT GLUCOSE BLOOD Routine 07/21/2024 8: 03 AM EST SST - GOLD Routine 07/21/2024 5:41 AM EST EXTRA TUBES Routine 07/21/2024 5:41 AM EST COMPLETE BLOOD COUNT Timed 07/21/2024 5:12 AM EST POCT GLUCOSE BLOOD Routine 07/21/2024 2: 47 AM EST POCT GLUCOSE BLOOD Routine 07/20/2024 8: 11 PM EST HEPARIN ANTI XA Timed 07/20/2024 7:45 PM EST POCT GLUCOSE BLOOD Routine 07/20/2024 4: 21 PM EST ACTIVATED PARTIAL THROMBOPLASTIN TIME STAT 07/20/2024 2:30 PM EST PROTHROMBIN TIME WITH INR STAT 07/20/2024 2:30 PM EST HEMODIALYSIS INPATIENT Routine 12:13 PM EST POCT GLUCOSE BLOOD Routine 07/20/2024 11 :23 AM EST POCT GLUCOSE BLOOD Routine 07/20/2024 8: 20 AM EST CBC WITH AUTO DIFFERENTIAL Routine 07/20/2024 5:46 AM EST HEPARIN ANTI XA Routine 07/20/2024 5:46 AM EST COMPLETE BLOOD COUNT Timed 07/20/2024 5:46 AM EST CBC AND DIFFERENTIAL Routine 07/20/2024 5:46 AM EST BASIC METABOLIC PANEL Routine 07/20/2024 5:46 AM EST POCT GLUCOSE BLOOD Routine 07/19/2024 8: 18 PM EST POCT GLUCOSE BLOOD Routine 07/19/2024 7: 29 PM EST POCT GLUCOSE BLOOD Routine 07/19/2024 4: 01 PM EST HEMOGLOBIN AND HEMATOCRIT STAT 07/19/2024 2:31 PM EST MICROALBUMIN CREATININE URINE RATIO Routine 07/19/2024 12:01 PM EST CREATININE, URINE, RANDOM Routine 07/19/2024 12:01 PM EST POCT GLUCOSE BLOOD Routine 07/19/2024 11 :32 AM EST POCT GLUCOSE BLOOD Routine 07/19/2024 9: 07 AM EST PARATHYROID HORMONE RELATED PROTEIN Routine 07/19/2024 7:55 AM EST CBC WITH AUTO DIFFERENTIAL Routine 07/19/2024 7:55 AM EST CBC AND DIFFERENTIAL Routine 07/19/2024 7:55 AM EST ANTI-NEUTROPHILIC CYTOPLASMIC ANTIBODY Routine 07/19/2024 6:52 AM EST HEPARIN ANTI XA Routine 07/19/2024 6:52 AM EST BASIC METABOLIC PANEL Routine 07/19/2024 6:52 AM EST POCT GLUCOSE BLOOD Routine 07/18/2024 8: 27 PM EST HEPARIN ANTI XA Timed 07/18/2024 6:07 PM EST POCT GLUCOSE BLOOD Routine 07/18/2024 4: 00 PM EST HEPARIN ANTI XA Timed 07/18/2024 12:43 PM EST POCT GLUCOSE BLOOD Routine 07/18/2024 11 :17 AM EST HEMODIALYSIS INPATIENT Routine 11:06 AM EST POCT GLUCOSE BLOOD Routine 07/18/2024 7: 54 AM EST ROBERTSON URINE CULTURE TUBE Routine 07/18/19 6:10 AM EST EXTRA TUBES Routine 07/18/2024 6:10 AM EST URINALYSIS MICROSCOPIC ONLY Routine 07/18/2024 6:09 AM EST URINALYSIS MICROSCOPIC ONLY Routine 07/18/2024 6:09 AM EST CBC WITH AUTO DIFFERENTIAL Routine 07/18/2024 6:07 AM EST HEPARIN ANTI XA Timed 07/18/2024 6:07 AM EST CBC AND DIFFERENTIAL Routine 07/18/2024 6:07 AM EST CALCIUM, IONIZED Routine 07/18/2024 6:07 AM EST BASIC METABOLIC PANEL Routine 07/18/2024 6:07 AM EST HEPARIN ANTI XA Timed 07/18/2024 12:19 AM EST POCT GLUCOSE BLOOD Routine 07/17/2024 9: 12 PM EST HEPARIN ANTI XA Timed 07/17/2024 6:37 PM EST POCT GLUCOSE BLOOD Routine 07/17/2024 4: 15 PM EST HEPARIN ANTI XA Timed 07/17/2024 12:29 PM EST POCT GLUCOSE BLOOD Routine 07/17/2024 11 :19 AM EST POCT GLUCOSE BLOOD Routine 07/17/2024 7: 57 AM EST CBC WITH AUTO DIFFERENTIAL Routine 07/17/2024 6:30 AM EST HEPARIN ANTI XA Timed 07/17/2024 6:30 AM EST COMPLETE BLOOD COUNT Timed 07/17/2024 6:30 AM EST CBC AND DIFFERENTIAL Routine 07/17/2024 6:30 AM EST PHOSPHORUS Routine 07/17/2024 6:30 AM EST MAGNESIUM Routine 07/17/2024 6:30 AM EST BASIC METABOLIC PANEL Routine 07/17/2024 6:30 AM EST HEPARIN ANTI XA Timed 07/17/2024 12:16 AM EST POCT GLUCOSE BLOOD Routine 07/16/2024 8: 30 PM EST ACTIVATED PARTIAL THROMBOPLASTIN TIME STAT 07/16/2024 5:50 PM EST HEPARIN ANTI XA STAT 07/16/2024 5:50 PM EST POCT GLUCOSE BLOOD Routine 07/16/2024 4: 28 PM EST VAS US DUPLEX LOWER EXT VENOUS BILAT Routine 07/16/2024 12:05 PM EST Bilateral leg edema POCT GLUCOSE BLOOD Routine 07/16/2024 10 :42 AM EST COMPLETE BLOOD COUNT STAT 07/16/2024 6:45 AM EST BASIC METABOLIC PANEL STAT 07/16/2024 6:45 AM EST POCT GLUCOSE BLOOD Routine 07/15/2024 8: 26 PM EST HEMODIALYSIS INPATIENT Routine 5 7:20 PM EST POCT GLUCOSE BLOOD Routine 07/15/2024 4: 30 PM EST IR INSERT TUNNELED CVC WO PORT OR PUMP MORE 5YRS LEFT Routine 07/15/2024 3:36 PM EST HEMODIALYSIS INPATIENT Routine 5 3:13 PM EST POCT GLUCOSE BLOOD Routine 07/15/2024 10 :57 AM EST HEPATITIS B SURFACE ANTIGEN WITH CONFIRMATION Routine 07/15/2024 8:56 AM EST HEPATITIS B SURFACE ANTIBODY QUANTITATIVE Routine 07/15/2024 8:56 AM EST RENAL FUNCTION PANEL STAT 07/15/2024 8:56 AM EST BASIC METABOLIC PANEL STAT 07/15/2024 8:56 AM EST POCT GLUCOSE BLOOD Routine 07/15/2024 8: 03 AM EST RBC MORPHOLOGY REVIEW Routine 07/15/2024 6:56 AM EST CBC WITH AUTO DIFFERENTIAL Routine 07/15/2024 6:56 AM EST PROTHROMBIN TIME WITH INR Routine 07/15/2024 6:56 AM EST CBC AND DIFFERENTIAL Routine 07/15/2024 6:56 AM EST MAGNESIUM Routine 07/15/2024 6:56 AM EST BASIC METABOLIC PANEL Routine 07/15/2024 6:56 AM EST POCT GLUCOSE BLOOD Routine 07/14/2024 8: 07 PM EST POCT GLUCOSE BLOOD Routine 07/14/2024 4: 26 PM EST POCT GLUCOSE BLOOD Routine 07/14/2024 11 :32 AM EST POCT GLUCOSE BLOOD Routine 07/14/2024 8: 19 AM EST EXTRACTABLE NUCLEAR ANTIBODIES PROFILE Add-On 07/14/2024 6:00 AM EST CBC WITH AUTO DIFFERENTIAL Routine 07/14/2024 6:00 AM EST ANTI-NEUTROPHILIC CYTOPLASMIC ANTIBODY Add-On 07/14/2024 6:00 AM EST CBC AND DIFFERENTIAL Routine 07/14/2024 6:00 AM EST C3 COMPLEMENT Add-On 07/14/2024 6:00 AM EST C4 COMPLEMENT Add-On 07/14/2024 6:00 AM EST MAGNESIUM Routine 07/14/2024 6:00 AM EST BASIC METABOLIC PANEL Routine 07/14/2024 6:00 AM EST POCT GLUCOSE BLOOD Routine 07/13/2024 8: 53 PM EST POCT GLUCOSE BLOOD Routine 07/13/2024 3: 53 PM EST TRANSFUSE RED BLOOD CELLS Routine 07/13/2024 12:33 PM EST POCT GLUCOSE BLOOD Routine 07/13/2024 10 :58 AM EST PREPARE RBC Routine 07/13/2024 10:44 AM EST TYPE AND SCREEN Routine 07/13/2024 8:24 AM EST POCT GLUCOSE BLOOD Routine 07/13/2024 8: 13 AM EST CBC WITH AUTO DIFFERENTIAL Routine 07/13/2024 6:38 AM EST SEDIMENTATION RATE Routine 07/13/2024 6: 38 AM EST CBC AND DIFFERENTIAL Routine 07/13/2024 6:38 AM EST URIC ACID Routine 07/13/2024 6:38 AM EST PHOSPHORUS Routine 07/13/2024 6:38 AM EST MAGNESIUM Routine 07/13/2024 6:38 AM EST BASIC METABOLIC PANEL Routine 07/13/2024 6:38 AM EST POCT GLUCOSE BLOOD Routine 07/12/2024 8: 06 PM EST POCT GLUCOSE BLOOD Routine 07/12/2024 3: 53 PM EST PROTEIN AND CREATININE WITH RATIO, URINE Routine 07/12/2024 3:27 PM EST SODIUM, URINE, RANDOM Routine 07/12/2024 3:27 PM EST OSMOLALITY, URINE Routine 07/12/2024 3:2 7 PM EST CREATININE, URINE, RANDOM STAT 07/12/2024 3:[address] CHEST WO CONTRAST STAT 07/12/2024 12:48 PM EST POCT GLUCOSE BLOOD Routine 07/12/2024 11 :48 AM EST POCT GLUCOSE BLOOD Routine 07/12/2024 8: 07 AM EST PROCALCITONIN Add-On 07/12/2024 6:19 AM EST CBC WITH AUTO DIFFERENTIAL Routine 07/12/2024 6:19 AM EST CBC AND DIFFERENTIAL Routine 07/12/2024 6:19 AM EST C-REACTIVE PROTEIN Add-On 07/12/2024 6: 19 AM EST PHOSPHORUS Routine 07/12/2024 6:19 AM EST MAGNESIUM Routine 07/12/2024 6:19 AM EST LIPASE Add-On 07/12/2024 6:19 AM EST HEPATIC FUNCTION PANEL Add-On 6:19 AM EST BASIC METABOLIC PANEL Routine 07/12/2024 6:19 AM EST POCT GLUCOSE BLOOD Routine 07/11/2024 8: 03 PM EST POCT GLUCOSE BLOOD Routine 07/11/2024 3: 51 PM EST POCT GLUCOSE BLOOD Routine 07/11/2024 11 :10 AM EST POCT GLUCOSE BLOOD Routine 07/11/2024 8: 17 AM EST [place] IMMUNOFIXATION ELECTROPHORESIS SERUM Routine 07/11/2024 6:21 AM EST IMMUNOFIXATION ELECTROPHORESIS Routine 07/11/2024 6:21 AM EST CBC WITH AUTO DIFFERENTIAL Routine 07/11/2024 6:21 AM EST CBC AND DIFFERENTIAL Routine 07/11/2024 6:21 AM EST IMMUNOFIXATION ELECTROPHORESIS Routine 07/11/2024 6:21 AM EST IMMUNOGLOBULINS IGG, IGA, IGM Routine 07/11/2024 6:21 AM EST HEPATIC FUNCTION PANEL Add-On 6:21 AM EST BASIC METABOLIC PANEL Routine 07/11/2024 6:21 AM EST POCT GLUCOSE BLOOD Routine 07/10/2024 8: 33 PM EST POCT GLUCOSE BLOOD Routine 07/10/2024 4: 11 PM EST POCT GLUCOSE BLOOD Routine 07/10/2024 11 :29 AM EST POCT GLUCOSE BLOOD Routine 07/10/2024 8: 40 AM EST CBC WITH AUTO DIFFERENTIAL Routine 07/10/2024 5:16 AM EST CBC AND DIFFERENTIAL Routine 07/10/2024 5:16 AM EST TRIIODOTHYRONINE FREE Add-On 07/10/2024 5:16 AM EST THYROXINE FREE Add-On 07/10/2024 5:16 AM EST PARATHYROID HORMONE INTACT Add-On 07/10/2024 5:16 AM EST MAGNESIUM Routine 07/10/2024 5:16 AM EST BASIC METABOLIC PANEL Routine 07/10/2024 5:16 AM EST POCT GLUCOSE BLOOD Routine 07/09/2024 7: 52 PM EST POCT GLUCOSE BLOOD Routine 07/09/2024 4: 27 PM EST POCT GLUCOSE BLOOD Routine 07/09/2024 11 :33 AM EST POCT GLUCOSE BLOOD Routine 07/09/2024 8: 59 AM EST CBC WITH AUTO DIFFERENTIAL Routine 07/09/2024 6:25 AM EST CBC AND DIFFERENTIAL Routine 07/09/2024 6:25 AM EST MAGNESIUM Routine 07/09/2024 6:25 AM EST CREATINE KINASE Routine 07/09/2024 6:25 AM EST CALCIUM, IONIZED Routine 07/09/2024 6:25 AM EST BASIC METABOLIC PANEL Routine 07/09/2024 6:25 AM EST XR CHEST 1 VIEW STAT 07/08/2024 10:00 PM EST LT GREEN - LI HEPARIN Routine 07/08/2024 9:50 PM EST EXTRA TUBES Routine 07/08/2024 9:50 PM EST CULTURE BLOOD STAT 07/08/2024 9:49 PM EST LACTATE Routine 07/08/2024 9:42 PM EST CULTURE BLOOD STAT 07/08/2024 9:37 PM EST POCT GLUCOSE BLOOD Routine 07/08/2024 8: 46 PM EST COMPLETE BLOOD COUNT Routine 07/08/2024 8:30 PM EST ELECTROLYTE PANEL Timed 07/08/2024 8:3 0 PM EST BASIC METABOLIC PANEL Routine 07/08/2024 8:30 PM EST POCT GLUCOSE BLOOD Routine 07/08/2024 6: 19 PM EST [place] PROTEIN ELECTROPHORETIC FRACTIONATION & QUANTITATION SERUM Routine 07/08/2024 5:52 PM EST PROTEIN ELECTROPHORESIS, SERUM Routine 07/08/2024 5:52 PM EST PROTEIN, TOTAL Routine 07/08/2024 5:52 PM EST ALBUMIN Routine 07/08/2024 5:52 PM EST ELECTROLYTE PANEL Timed 07/08/2024 5:5 2 PM EST BASIC METABOLIC PANEL Routine 07/08/2024 5:52 PM EST US RETROPERITONEAL COMPLETE Routine 07/08/2024 4:30 PM EST TRANSFUSE RED BLOOD CELLS Routine 07/08/2024 4:11 PM EST RESPIRATORY VIRUS PANEL MOLECULAR STUDY STAT 07/08/2024 2:59 PM EST XR CHEST 2 VIEWS STAT 07/08/2024 2:01 PM EST TROPONIN I HIGH SENSITIVITY STAT 07/08/2024 1:18 PM EST TYPE AND SCREEN STAT 07/08/2024 1:18 PM EST PREPARE RBC Routine 07/08/2024 1:17 PM EST URINALYSIS WITH REFLEX MICROSCOPIC AND CULTURE STAT 07/08/2024 12:59 PM EST ROBERTSON URINE CULTURE TUBE STAT 07/08/19 25 12:59 PM EST URINALYSIS WITH REFLEX MICROSCOPIC AND CULTURE STAT 07/08/2024 12:59 PM EST CULTURE URINE STAT 07/08/2024 12:[address] CERVICAL SPINE WO CONTRAST STAT 07/08/2024 12:[address] HEAD WO CONTRAST STAT 07/08/2024 1 2:11 PM EST TROPONIN I HIGH SENSITIVITY STAT 07/08/2024 11:10 AM EST CBC WITH AUTO DIFFERENTIAL STAT 07/08/2024 11:10 AM EST IRON AND TIBC Add-On 07/08/2024 11:10 AM EST RETICULOCYTE COUNT Add-On 07/08/2024 11 :10 AM EST CBC AND DIFFERENTIAL STAT 07/08/2024 11:10 AM EST URIC ACID Add-On 07/08/2024 11:10 AM EST THYROID STIMULATING HORMONE Add-On 07/08/2024 11:10 AM EST PARATHYROID HORMONE INTACT Add-On 07/08/2024 11:10 AM EST OSMOLALITY Add-On 07/08/2024 11:10 AM EST B-TYPE NATRIURETIC PEPTIDE STAT 07/08/2024 11:10 AM EST MAGNESIUM STAT 07/08/2024 11:10 AM EST LIPASE STAT 07/08/2024 11:10 AM EST HAPTOGLOBIN Add-On 07/08/2024 11:10 AM EST FOLATE Add-On 07/08/2024 11:10 AM EST FERRITIN Add-On 07/08/2024 11:10 AM EST VITAMIN B12 Add-On 07/08/2024 11:10 AM EST CREATINE KINASE AND CKMB Add-On 025 11:10 AM EST CORTISOL Add-On 07/08/2024 11:10 AM EST COMPREHENSIVE METABOLIC PANEL STAT 07/08/2024 11:10 AM EST ECG 12-LEAD STAT 07/08/2024 10:46 AM EST documented in this encounter Results * (ABNORMAL) POCT Glucose, blood (08/06/2024 11:07 AM EST) Glucose POCT 187(H) 70 - 100 mg/dL 08/06/2024 11:09 AM EST [facility] Blood Capillary blood specimen / Unknown 08/06/2024 11:07 AM EST 08/06/2024 11:10 AM EST Steve Cruz MD LAB POINT OF CA RE TEST DOCKED DEVICE UNSOLICITED RESULTS Final Result [facility] [address] [place] [address], * (ABNORMAL) POCT Glucose, blood (08/06/2024 7:26 AM EST) Glucose POCT 66(L) 70 - 100 mg/dL 08/06/2024 7:27 AM EST [facility] Blood Capillary blood specimen / Unknown 08/06/2024 7:26 AM EST 08/06/2024 7:28 AM EST us Steve Cruz MD LAB POINT OF CA RE TEST DOCKED DEVICE UNSOLICITED RESULTS Final Result Performing Organization Address [facility]/ZIP Co de Phone Number [facility] [address] [place] [address], [place] [phone] * (ABNORMAL) POCT Glucose, blood (08/05/2024 8:08 PM EST) Glucose POCT 263(H) 70 - 100 mg/dL 08/05/2024 8:08 PM EST [facility] Blood Capillary blood specimen / Unknown 08/05/2024 8:08 PM EST 08/05/2024 8:09 PM EST us Steve Cruz MD LAB POINT OF CA RE TEST DOCKED DEVICE UNSOLICITED RESULTS Final Result Performing Organization Address [facility] Co de Phone Number [facility] [address] [place] [address], [place] [phone] * (ABNORMAL) POCT Glucose, blood (08/05/2024 4:40 PM EST) Glucose POCT 270(H) 70 - 100 mg/dL 08/05/2024 4:42 PM EST [facility] Blood Capillary blood specimen / Unknown 08/05/2024 4:40 PM EST 08/05/2024 4:43 PM EST us Steve Cruz MD LAB POINT OF CA RE TEST DOCKED DEVICE UNSOLICITED RESULTS Final Result Performing Organization Address [facility]/ZIP Co de Phone Number [facility] [address] [place] [address], [place] [phone] * XR Chest 1 View (08/05/2024 1:43 PM EST) Anatomical Region Laterality Modality Body Radiographic Jennifer ging 08/05/2024 1:46 PM EST Impressions 08/05/2024 1:49 PM EST FINDINGS/IMPRESSION: Post procedure radiograph demonstrates no evidence for pneumothorax. ??Otherwise similar to prior exams with left IJ tunneled central line in place. -------- FINAL REPORT -------- Dictated By: Truong Ren Dictated Date: 08/05/2024 13:46 ET Assigned Physician: Truong Ren Reviewed and Electronically Signed By: Truong Ren Signed Date: 08/05/2024 13:49 ET Workstation ID: [id number] Transcribed By: Self Edit Transcribed Date: 08/05/2024 13:46 ET Narrative 08/05/2024 1:49 PM EST XR CHEST 1 VIEW INDICATION: Lung biopsy TECHNIQUE: XR CHEST 1 VIEW COMPARISON: No priors available. Procedure Note Truong Ren MD - 08/05/2024 XR CHEST 1 VIEW INDICATION: Lung biopsy TECHNIQUE: XR CHEST 1 VIEW COMPARISON: No priors available. IMPRESSION: FINDINGS/IMPRESSION: Post procedure radiograph demonstrates no evidencefor pneumothorax. Otherwise similar to prior exams with left IJ tunneledcentral line in place. -------- FINAL REPORT -------- Dictated By: Truong Ren Dictated Date: 08/05/2024 13:46 ET Assigned Physician: Truong Ren Reviewed and Electronically Signed By: Truong Ren Signed Date: 08/05/2024 13:49 ET Workstation ID: [id number] Transcribed By: Self Edit Transcribed Date: 08/05/2024 13:46 ET us Cecily Montez MD IMG XR PROCEDURES Final Result * (ABNORMAL) POCT Glucose, blood (08/05/2024 1:40 PM EST) Glucose POCT 148(H) 70 - 100 mg/dL 08/05/2024 1:41 PM EST [facility] Blood Capillary blood specimen / Unknown 08/05/2024 1:40 PM EST 08/05/2024 1:42 PM EST us Steve Cruz MD LAB POINT OF CA RE TEST DOCKED DEVICE UNSOLICITED RESULTS Final Result Performing Organization Address [facility]/ZIP Co de Phone Number [facility] [address] [place] [address], [place] [phone] * Concentration (08/05/2024 12:32 PM EST) Pathologist [facility] [place] [employer] Concentration Performed 3:05 PM EST [facility] Structure of upper lobe of right lung / Unknown 08/05/2024 12:32 PM EST 08/05/2024 1:17 PM EST Narrative [facility] - 08/06/2024 3:05 PM EST Performed at: ??01 - [facility] [address] ??[id number] Pricing Actuary: Diane Belle MD, Phone: ??[phone] us Cecily Montez MD LAB BLOOD ORDERABLES Final Resul t Performing Organization Address [facility] Co de Phone Number [facility] * Acid fast bacilli stain (08/05/2024 12:32 PM EST) Pathologist [facility] [place] [employer] Stain Result No Acid fast bacilli seen on direct smear (Fuchsin method, 1000x) No Acid Fast Bacilli seen on direct smear 08/05/2024 2:18 PM EST [facility] Wash Structure of upper lobe of right lung / Unknown 08/05/2024 12:32 PM EST 08/05/2024 1:17 PM EST us Cecily Montez MD LAB MICROBIOLOGY - GENERAL ORDER SYLVAIN Final Result Performing Organization Address [facility]/ZIP Co de Phone Number [facility] [address] [place] [address], [place] [phone] * (ABNORMAL) Basic metabolic panel (08/05/2024 7:04 AM EST) Pathologist [facility] [place] Sodium 133 133 - 145 mmol/L LAB CHEMISTRY METHOD 08/05/2024 8:01 AM [facility] Potassium 4.5 3.5 - 5.5 mmol/L LAB CHEMISTRY METHOD 08/05/2024 8:01 AM [facility] Chloride 96 96 - 110 mmol/L LAB CHEMISTRY METHOD 08/05/2024 8:01 AM [facility] CO2 32 21 - 32 mmol/L LAB CHEMISTRY METHOD 08/05/2024 8:01 AM [facility] Anion Gap 5 3 - 11 LAB CHEMISTRY METHOD 08/05/2024 8:01 AM [facility] Glucose 138(H) 70 - 100 mg/dL LAB CHEMISTRY METHOD 08/05/2024 8:01 AM [facility] BUN 53(H) 5 - 25 mg/dL LAB CHEMISTRY METHOD 08/05/2024 8:01 AM [facility] Creatinine 3.91(H) 0.50 - 1.10 mg/dL LAB CHEMISTRY METHOD 08/05/2024 8:01 AM [facility] eGFR 11(L) >=60 mL/min/1. 73m2 LAB CHEMISTRY METHOD 08/05/2024 8:01 AM [facility] Comment:Calculation based on the??Chronic Kidney Disease Epidemiology Collaboration (CKD-EPI) equation refit??without adjustment for race. BUN/Creatinine Ratio 13.6 LAB CHEMISTRY METHOD 08/05/2024 8:01 AM [facility] Calcium 8.4(L) 8.5 - 10.5 mg/dL LAB CHEMISTRY METHOD 08/05/2024 8:01 AM [facility] Blood Venous blood specimen / Unknown Venipuncture / Unknown 08/05/2024 7:04 AM EST 08/05/2024 7:34 AM EST Steve Cruz MD LAB BLOOD ORDERABLES Fi nal Result [facility] [address] [place] [address], * (ABNORMAL) CBC - Every 3 Days (08/05/2024 7:03 AM EST) WBC 8.8 4.8 - 10.8 K/mcL LAB HEMETOLOGY METHOD 08/05/2024 7:42 AM [facility] RBC 2.90(L) 3.80 - 4.80 M/mcL LAB HEMETOLOGY METHOD 08/05/2024 7:42 AM [facility] Hemoglobin 7.9(L) 11.5 - 16.0 g/dL LAB HEMETOLOGY METHOD 08/05/2024 7:42 AM [facility] Hematocrit 25.5(L) 35.0 - 47.0 % LAB HEMETOLOGY METHOD 08/05/2024 7:42 AM [facility] MCV 87.6 79.0 - 98.0 FL LAB HEMETOLOGY METHOD 08/05/2024 7:42 AM [facility] MCH 27.1 27.0 - 32.0 pcg LAB HEMETOLOGY METHOD 08/05/2024 7:42 AM [facility] MCHC 31.0(L) 32.0 - 37.0 g/dL LAB HEMETOLOGY METHOD 08/05/2024 7:42 AM [facility] RDW 21.9(H) 11.0 - 15.0 % LAB HEMETOLOGY METHOD 08/05/2024 7:42 AM [facility] Platelets 180 130 - 400 K/mcL LAB HEMETOLOGY METHOD 08/05/2024 7:42 AM [facility] MPV 10.8 7.0 - 11.0 FL LAB HEMETOLOGY METHOD 08/05/2024 7:42 AM EST [facility] NRBC 0.0 <1.0 % LAB HEMETOLOGY METHOD 08/05/2024 7:42 AM EST [facility] NRBC Absolute 0.00 <0.10 K/mcL LAB HEMETOLOGY METHOD 08/05/2024 7:42 AM EST [facility] Blood Venous blood specimen / Unknown Venipuncture / Unknown 08/05/2024 7:03 AM EST 08/05/2024 7:34 AM EST Lencho Stuart MD LAB BLOOD ORDERABLES Final R esult [facility] [address] [place] [address], [place] [phone] * (ABNORMAL) POCT Glucose, blood (08/04/2024 8:39 PM EST) Glucose POCT 352(H) 70 - 100 mg/dL 08/04/2024 8:40 PM EST [facility] Blood Capillary blood specimen / Unknown 08/04/2024 8:39 PM EST 08/04/2024 8:41 PM EST us Steve Cruz MD LAB POINT OF CA RE TEST DOCKED DEVICE UNSOLICITED RESULTS Final Result [facility] [address] [place] [address], [place] [phone] * (ABNORMAL) POCT Glucose, blood (08/04/2024 5:36 PM EST) Glucose POCT 376(H) 70 - 100 mg/dL 08/04/2024 5:37 PM EST [facility] Blood Capillary blood specimen / Unknown 08/04/2024 5:36 PM EST 08/04/2024 5:38 PM EST us Steve Cruz MD LAB POINT OF CA RE TEST DOCKED DEVICE UNSOLICITED RESULTS Final Result [facility] [address] [place] [address], [place] [phone] * (ABNORMAL) POCT Glucose, blood (08/04/2024 11:05 AM EST) Glucose POCT 130(H) 70 - 100 mg/dL 08/04/2024 11:07 AM EST [facility] Blood Capillary blood specimen / Unknown 08/04/2024 11:05 AM EST 08/04/2024 11:08 AM EST Steve Cruz MD LAB POINT OF CA RE TEST DOCKED DEVICE UNSOLICITED RESULTS Final Result Performing Organization Address [facility]/ZIP Co de Phone Number [facility] [address] [place] [address], [place] [phone] * (ABNORMAL) POCT Glucose, blood (08/04/2024 8:03 AM EST) Glucose POCT 116(H) 70 - 100 mg/dL 08/04/2024 8:05 AM EST [facility] Blood Capillary blood specimen / Unknown 08/04/2024 8:03 AM EST 08/04/2024 8:07 AM EST Steve Cruz MD LAB POINT OF CA RE TEST DOCKED DEVICE UNSOLICITED RESULTS Final Result [facility] [address] [place] [address], [place] [phone] * (ABNORMAL) Creatinine, Serum - Every 7 Days (08/04/2024 6:31 AM EST) Creatinine 2.49(H) 0.50 - 1.10 mg/dL LAB CHEMISTRY METHOD 08/04/2024 7:31 AM EST [facility] eGFR 19(L) >=60 mL/min/1. 73m2 LAB CHEMISTRY METHOD 08/04/2024 7:31 AM EST [facility] Comment:Calculation based on the??Chronic Kidney Disease Epidemiology Collaboration (CKD-EPI) equation refit??without adjustment for race. Blood Venous blood specimen / Unknown Venipuncture / Unknown 08/04/2024 6:31 AM EST 08/04/2024 6:54 AM EST Jonny Mathur MD LAB BLOOD ORDERABLES Final Re sult [facility] [address] [place] [address], [place] [phone] * (ABNORMAL) POCT Glucose, blood (08/03/2024 9:59 PM EST) Glucose POCT 135(H) 70 - 100 mg/dL 08/03/2024 9:59 PM EST [facility] Blood Capillary blood specimen / Unknown 08/03/2024 9:59 PM EST 08/03/2024 10:00 PM EST Steve Cruz MD LAB POINT OF CA RE TEST DOCKED DEVICE UNSOLICITED RESULTS Final Result [facility] [address] [place] [address], [place] [phone] * (ABNORMAL) POCT Glucose, blood (08/03/2024 3:47 PM EST) Glucose POCT 304(H) 70 - 100 mg/dL 08/03/2024 3:48 PM EST [facility] Blood Capillary blood specimen / Unknown 08/03/2024 3:47 PM EST 08/03/2024 3:49 PM EST us Steve Cruz MD LAB POINT OF CA RE TEST DOCKED DEVICE UNSOLICITED RESULTS Final Result Performing Organization Address [facility]/ZIP Co de Phone Number [facility] [address] [place] [address], [place] [phone] * (ABNORMAL) POCT Glucose, blood (08/03/2024 12:35 PM EST) [facility] Glucose POCT 125(H) 70 - 100 mg/dL 08/03/2024 12:59 PM EST [facility] Blood Capillary blood specimen / Unknown 08/03/2024 12:35 PM EST 08/03/2024 1:00 PM EST us Steve Cruz MD LAB POINT OF CA RE TEST DOCKED DEVICE UNSOLICITED RESULTS Final Result Performing Organization Address [facility] de Phone Number [facility] [address] [place] [address], [place] [phone] * Hepatitis B surface antigen with reflex to confirmation (08/03/2024 8:49 AM EST) [facility] Hepatitis B Surface Ag Negative Negative LAB CHEMISTRY METHOD 08/03/2024 10:11 AM EST [facility] Blood Venous blood specimen / Unknown Venipuncture / Unknown 08/03/2024 8:49 AM EST 08/03/2024 9:22 AM EST Narrative [facility] - 08/03/2024 10:11 AM EST Over the counter supplements containing high doses of biotin may interfere with this assay. ??If interference is suspected, patients shoud be retested after refraining from biotin supplements for 72 hours. us Steve Cruz MD LAB BLOOD ORDERABLES Fi nal Result Performing Organization Address [facility] Co de Phone Number [facility] [address] [place] [address], * Hepatitis B surface antibody quantitative (08/03/2024 8:49 AM EST) [facility] Hepatitis B Surface Ab Negative Negative LAB CHEMISTRY METHOD 08/03/2024 9:59 AM EST [facility] Hepatitis B Surface Ab Quantitative <3.1 mIU/mL LAB CHEMISTRY METHOD 08/03/2024 9:59 AM [facility] Blood Venous blood specimen / Unknown Venipuncture / Unknown 08/03/2024 8:49 AM EST 08/03/2024 9:22 AM EST [facility] - 08/03/2024 9:59 AM EST >=10 mIU/mL is considered to be consistent with immunity. Steve Cruz MD LAB BLOOD ORDERABLES [facility] Result [facility] [address] [place] [address], [place] [phone] * (ABNORMAL) Complete blood count (08/03/2024 8:49 AM EST) [facility] WBC 8.5 4.8 - 10.8 K/mcL LAB HEMETOLOGY METHOD 08/03/2024 9:28 AM [facility] RBC 2.90(L) 3.80 - 4.80 M/mcL LAB HEMETOLOGY METHOD 08/03/2024 9:28 AM [facility] Hemoglobin 7.7(L) 11.5 - 16.0 g/dL LAB HEMETOLOGY METHOD 08/03/2024 9:28 AM [facility] Hematocrit 24.6(L) 35.0 - 47.0 % LAB HEMETOLOGY METHOD 08/03/2024 9:28 AM [facility] MCV 84.2 79.0 - 98.0 FL LAB HEMETOLOGY METHOD 08/03/2024 9:28 AM EST [facility] MCH 26.4(L) 27.0 - 32.0 pcg LAB HEMETOLOGY METHOD 08/03/2024 9:28 AM [facility] MCHC 31.3(L) 32.0 - 37.0 g/dL LAB HEMETOLOGY METHOD 08/03/2024 9:28 AM EST [facility] RDW 21.8(H) 11.0 - 15.0 % LAB HEMETOLOGY METHOD 08/03/2024 9:28 AM [facility] Platelets 186 130 - 400 K/mcL LAB HEMETOLOGY METHOD 08/03/2024 9:28 AM [facility] MPV 10.5 7.0 - 11.0 FL LAB HEMETOLOGY METHOD 08/03/2024 9:28 AM EST [facility] NRBC 0.0 <1.0 % LAB HEMETOLOGY METHOD 08/03/2024 9:28 AM [facility] NRBC Absolute 0.00 <0.10 K/mcL LAB HEMETOLOGY METHOD 08/03/2024 9:28 AM [facility] Blood Venous blood specimen / Unknown Venipuncture / Unknown 08/03/2024 8:49 AM EST 08/03/2024 9:22 AM EST Steve Cruz MD LAB BLOOD ORDERABLES Fi nal Result [facility] [address] [place] [address], * (ABNORMAL) CBC auto differential (08/03/2024 6:01 AM EST) [facility] WBC 7.5 4.8 - 10.8 K/mcL LAB HEMETOLOGY METHOD 08/03/2024 7:49 AM EST [facility] RBC 2.90(L) 3.80 - 4.80 M/mcL LAB HEMETOLOGY METHOD 08/03/2024 7:49 AM [facility] Hemoglobin 7.8(L) 11.5 - 16.0 g/dL LAB HEMETOLOGY METHOD 08/03/2024 7:49 AM [facility] Hematocrit 24.7(L) 35.0 - 47.0 % LAB HEMETOLOGY METHOD 08/03/2024 7:49 AM [facility] MCV 85.8 79.0 - 98.0 FL LAB HEMETOLOGY METHOD 08/03/2024 7:49 AM [facility] MCH 27.1 27.0 - 32.0 pcg LAB HEMETOLOGY METHOD 08/03/2024 7:49 AM [facility] MCHC 31.6(L) 32.0 - 37.0 g/dL LAB HEMETOLOGY METHOD 08/03/2024 7:49 AM [facility] RDW 21.6(H) 11.0 - 15.0 % LAB HEMETOLOGY METHOD 08/03/2024 7:49 AM [facility] Platelets 188 130 - 400 K/mcL LAB HEMETOLOGY METHOD 08/03/2024 7:49 AM [facility] MPV 11.2(H) 7.0 - 11.0 FL LAB HEMETOLOGY METHOD 08/03/2024 7:49 AM [facility] NRBC 0.0 <1.0 % LAB HEMETOLOGY METHOD 08/03/2024 7:49 AM [facility] NRBC Absolute 0.00 <0.10 K/mcL LAB HEMETOLOGY METHOD 08/03/2024 7:49 AM [facility] Neutrophils Relative 77.2 % LAB HEMETOLOGY METHOD 08/03/2024 7:49 AM [facility] Lymphocytes Relative 12.8 % LAB HEMETOLOGY METHOD 08/03/2024 7:49 AM [facility] Monocytes Relative 8.0 % LAB HEMETOLOGY METHOD 08/03/2024 7:49 AM [facility] Eosinophils Relative 0.4 % LAB HEMETOLOGY METHOD 08/03/2024 7:49 AM [facility] Basophils Relative 0.1 % LAB HEMETOLOGY METHOD 08/03/2024 7:49 AM [facility] Immature Granulocytes Relative 1.5 % LAB HEMETOLOGY METHOD 08/03/2024 7:49 AM [facility] Neutrophils Absolute 5.78 1.50 - 7.00 K/mcL LAB HEMETOLOGY METHOD 08/03/2024 7:49 AM [facility] Lymphocytes Absolute 0.96(L) 1.00 - 5.00 K/mcL LAB HEMETOLOGY METHOD 08/03/2024 7:49 AM [facility] Monocytes Absolute 0.60 0.20 - 1.00 K/mcL LAB HEMETOLOGY METHOD 08/03/2024 7:49 AM [facility] Eosinophils Absolute 0.03 0.00 - 0.50 K/mcL LAB HEMETOLOGY METHOD 08/03/2024 7:49 AM [facility] Basophils Absolute 0.01 0.00 - 0.20 K/mcL LAB HEMETOLOGY METHOD 08/03/2024 7:49 AM [facility] Immature Granulocytes Absolute 0.11(H) 0.00 - 0.03 K/mcL LAB HEMETOLOGY METHOD 08/03/2024 7:49 AM [facility] Blood Venous blood specimen / Unknown Venipuncture / Unknown 08/03/2024 6:01 AM EST 08/03/2024 7:27 AM EST Steve Cruz MD LAB BLOOD ORDERABLES Fi nal Result Performing Organization Address [facility] Co de Phone Number [facility] [address] [place] [address], * Magnesium (08/03/2024 6:01 AM EST) Magnesium 2.1 1.9 - 2.6 mg/dL LAB CHEMISTRY METHOD 08/03/2024 8:11 AM EST [facility] Blood Venous blood specimen / Unknown Venipuncture / Unknown 08/03/2024 6:01 AM EST 08/03/2024 7:27 AM EST us Steve Cruz MD LAB BLOOD ORDERABLES Fi nal Result Performing Organization Address [facility] de Phone Number [facility] [address] [place] [address], * Phosphorus (08/03/2024 6:01 AM EST) Phosphorus 4.3 2.5 - 4.5 mg/dL LAB CHEMISTRY METHOD 08/03/2024 8:11 AM EST [facility] Blood Venous blood specimen / Unknown Venipuncture / Unknown 08/03/2024 6:01 AM EST 08/03/2024 7:27 AM EST us Steve Cruz MD LAB BLOOD ORDERABLES Fi nal Result Performing Organization Address [facility]/ZIP Co de Phone Number [facility] [address] [place] [address], [place] [phone] * (ABNORMAL) POCT Glucose, blood (08/02/2024 7:33 PM EST) Glucose POCT 241(H) 70 - 100 mg/dL 08/02/2024 7:34 PM EST [facility] Blood Capillary blood specimen / Unknown 08/02/2024 7:33 PM EST 08/02/2024 7:35 PM EST us Steve Cruz MD LAB POINT OF CA RE TEST DOCKED DEVICE UNSOLICITED RESULTS Final Result [facility] [address] [place] [address], [place] [phone] * (ABNORMAL) POCT Glucose, blood (08/02/2024 4:27 PM EST) Glucose POCT 212(H) 70 - 100 mg/dL 08/02/2024 4:29 PM EST [facility] Blood Capillary blood specimen / Unknown 08/02/2024 4:27 PM EST 08/02/2024 4:29 PM EST us Steve Cruz MD LAB POINT OF CA RE TEST DOCKED DEVICE UNSOLICITED RESULTS Final Result Performing Organization Address [facility]/ZIP Co de Phone Number [facility] [address] [place] [address], [place] [phone] * Type and screen (08/02/2024 3:04 PM EST) Pathologist [facility] [place] [facility] O 08/02/2024 4:52 PM EST [facility] Rh Type Positive 08/02/2024 4:52 PM EST [facility] Antibody Screen Negative 08/02/2024 4:52 PM EST [facility] Blood Venous blood specimen / Unknown Venipuncture / Unknown 08/02/2024 3:04 PM EST 08/02/2024 4:07 PM EST us Steve Cruz MD LAB BLOOD BANK TEST ORD ERABLES Final Result [facility] [address] [place] [address], [place] [phone] * Prepare RBC: 1 Units (08/02/2024 2:09 PM EST) Product Code [id number] 08/02/2024 6:27 PM [facility] Unit Number [id number] 08/02/19 6:27 PM [facility] Crossmatch Compatible 08/02/2024 5:03 PM [facility] Dispense Status Transfused 08/02/2024 6:27 PM [facility] Unit ABO Rh OPOS 08/02/2024 6:27 PM [facility] Unit Expiration Date Time [id number] 08/02/2024 6:27 PM [facility] Unit Blood Type 5100 08/02/2024 6:27 PM [facility] Blood Venous blood specimen / Unknown 08/02/2024 2:09 PM EST 08/02/2024 4:07 PM EST us Steve Cruz MD BLOOD BANK PRODUCT ORDE RABLES Final Result [facility] [address] [place] [address], * (ABNORMAL) POCT Glucose, blood (08/02/2024 11:26 AM EST) Glucose POCT 153(H) 70 - 100 mg/dL 08/02/2024 11:41 AM EST [facility] Blood Capillary blood specimen / Unknown 08/02/2024 11:26 AM EST 08/02/2024 11:43 AM EST us Steve Cruz MD LAB POINT OF CA RE TEST DOCKED DEVICE UNSOLICITED RESULTS Final Result Performing Organization Address City[facility]/ZIP Co de Phone Number [facility] [address] [place] [address], * POCT Glucose, blood (08/02/2024 7:46 AM EST) [facility] Glucose POCT 90 70 - 100 mg/dL 08/02/2024 7:46 AM [facility] Blood Capillary blood specimen / Unknown 08/02/2024 7:46 AM EST 08/02/2024 7:48 AM EST Steve Cruz MD LAB POINT OF CA RE TEST DOCKED DEVICE UNSOLICITED RESULTS Final Result Performing Organization Address [facility]/ZIP Co de Phone Number [facility] [address] [place] [address], [place] [phone] * (ABNORMAL) CBC - Every 3 Days (08/02/2024 6:06 AM EST) [facility] WBC 8.0 4.8 - 10.8 K/mcL LAB HEMETOLOGY METHOD 08/02/2024 7:45 AM [facility] RBC 2.70(L) 3.80 - 4.80 M/mcL LAB HEMETOLOGY METHOD 08/02/2024 7:45 AM [facility] Hemoglobin 7.0(L) 11.5 - 16.0 g/dL LAB HEMETOLOGY METHOD 08/02/2024 7:45 AM [facility] Hematocrit 22.9(L) 35.0 - 47.0 % LAB HEMETOLOGY METHOD 08/02/2024 7:45 AM [facility] MCV 84.2 79.0 - 98.0 FL LAB HEMETOLOGY METHOD 08/02/2024 7:45 AM [facility] MCH 25.7(L) 27.0 - 32.0 pcg LAB HEMETOLOGY METHOD 08/02/2024 7:45 AM [facility] MCHC 30.6(L) 32.0 - 37.0 g/dL LAB HEMETOLOGY METHOD 08/02/2024 7:45 AM [facility] RDW 23.4(H) 11.0 - 15.0 % LAB HEMETOLOGY METHOD 08/02/2024 7:45 AM [facility] Platelets 205 130 - 400 K/mcL LAB HEMETOLOGY METHOD 08/02/2024 7:45 AM [facility] MPV 11.0 7.0 - 11.0 FL LAB HEMETOLOGY METHOD 08/02/2024 7:45 AM [facility] NRBC 0.0 <1.0 % LAB HEMETOLOGY METHOD 08/02/2024 7:45 AM [facility] NRBC Absolute 0.00 <0.10 K/mcL LAB HEMETOLOGY METHOD 08/02/2024 7:45 AM [facility] Blood Venous blood specimen / Unknown Venipuncture / Unknown 08/02/2024 6:06 AM EST 08/02/2024 7:23 AM EST Lencho Stuart MD LAB BLOOD ORDERABLES Final R esult [facility] [address] [place] [address], * (ABNORMAL) POCT Glucose, blood (08/01/2024 7:43 PM EST) [facility] Signature Glucose POCT 209(H) 70 - 100 mg/dL 08/01/2024 7:44 PM EST [facility] Blood Capillary blood specimen / Unknown 08/01/2024 7:43 PM EST 08/01/2024 7:44 PM EST Steve Cruz MD LAB POINT OF CA RE TEST DOCKED DEVICE UNSOLICITED RESULTS Final Result [facility] [address] [place] [address], [place] [phone] * (ABNORMAL) POCT Glucose, blood (08/01/2024 5:20 PM EST) Glucose POCT 168(H) 70 - 100 mg/dL 08/01/2024 5:21 PM EST [facility] Blood Capillary blood specimen / Unknown 08/01/2024 5:20 PM EST 08/01/2024 5:22 PM EST Steve Cruz MD LAB POINT OF CA RE TEST DOCKED DEVICE UNSOLICITED RESULTS Final Result Performing Organization Address [facility]/ZIP Co de Phone Number [facility] [address] [place] [address], [place] [phone] * (ABNORMAL) POCT Glucose, blood (08/01/2024 11:03 AM EST) Glucose POCT 149(H) 70 - 100 mg/dL 08/01/2024 11:03 AM EST [facility] Blood Capillary blood specimen / Unknown 08/01/2024 11:03 AM EST 08/01/2024 11:04 AM EST Steve Cruz MD LAB POINT OF CA RE TEST DOCKED DEVICE UNSOLICITED RESULTS Final Result [facility] [address] [place] [address], [place] [phone] * (ABNORMAL) POCT Glucose, blood (08/01/2024 8:59 AM EST) Glucose POCT 128(H) 70 - 100 mg/dL 08/01/2024 9:01 AM EST [facility] Blood Capillary blood specimen / Unknown 08/01/2024 8:59 AM EST 08/01/2024 9:02 AM EST Steve Cruz MD LAB POINT OF CA RE TEST DOCKED DEVICE UNSOLICITED RESULTS Final Result [facility] [address] [place] [address], [place] [phone] * POCT Glucose, blood (08/01/2024 7:34 AM EST) Pathologist [facility] [place] Glucose POCT 75 70 - 100 mg/dL 08/01/2024 7:35 AM [facility] Blood Capillary blood specimen / Unknown 08/01/2024 7:34 AM EST 08/01/2024 7:36 AM EST Steve Cruz MD LAB POINT OF CA RE TEST DOCKED DEVICE UNSOLICITED RESULTS Final Result [facility] [address] [place] [address], [place] [phone] * (ABNORMAL) CBC auto differential (08/01/2024 6:59 AM EST) WBC 9.2 4.8 - 10.8 K/mcL LAB HEMETOLOGY METHOD 08/01/2024 8:20 AM [facility] RBC 3.00(L) 3.80 - 4.80 M/mcL LAB HEMETOLOGY METHOD 08/01/2024 8:20 AM [facility] Hemoglobin 7.7(L) 11.5 - 16.0 g/dL LAB HEMETOLOGY METHOD 08/01/2024 8:20 AM [facility] Hematocrit 25.2(L) 35.0 - 47.0 % LAB HEMETOLOGY METHOD 08/01/2024 8:20 AM [facility] MCV 84.6 79.0 - 98.0 FL LAB HEMETOLOGY METHOD 08/01/2024 8:20 AM [facility] MCH 25.8(L) 27.0 - 32.0 pcg LAB HEMETOLOGY METHOD 08/01/2024 8:20 AM [facility] MCHC 30.6(L) 32.0 - 37.0 g/dL LAB HEMETOLOGY METHOD 08/01/2024 8:20 AM [facility] RDW 23.5(H) 11.0 - 15.0 % LAB HEMETOLOGY METHOD 08/01/2024 8:20 AM [facility] Platelets 220 130 - 400 K/mcL LAB HEMETOLOGY METHOD 08/01/2024 8:20 AM [facility] MPV 11.3(H) 7.0 - 11.0 FL LAB HEMETOLOGY METHOD 08/01/2024 8:20 AM [facility] NRBC 0.0 <1.0 % LAB HEMETOLOGY METHOD 08/01/2024 8:20 AM [facility] NRBC Absolute 0.00 <0.10 K/mcL LAB HEMETOLOGY METHOD 08/01/2024 8:20 AM [facility] Neutrophils Relative 77.4 % LAB HEMETOLOGY METHOD 08/01/2024 8:20 AM [facility] Lymphocytes Relative 12.6 % LAB HEMETOLOGY METHOD 08/01/2024 8:20 AM [facility] Monocytes Relative 7.6 % LAB HEMETOLOGY METHOD 08/01/2024 8:20 AM [facility] Eosinophils Relative 0.9 % LAB HEMETOLOGY METHOD 08/01/2024 8:20 AM [facility] Basophils Relative 0.1 % LAB HEMETOLOGY METHOD 08/01/2024 8:20 AM EST [facility] Immature Granulocytes Relative 1.4 % LAB HEMETOLOGY METHOD 08/01/2024 8:20 AM EST [facility] Neutrophils Absolute 7.09(H) 1.50 - 7.00 K/mcL LAB HEMETOLOGY METHOD 08/01/2024 8:20 AM EST [facility] Lymphocytes Absolute 1.16 1.00 - 5.00 K/mcL LAB HEMETOLOGY METHOD 08/01/2024 8:20 AM EST [facility] Monocytes Absolute 0.70 0.20 - 1.00 K/mcL LAB HEMETOLOGY METHOD 08/01/2024 8:20 AM [facility] Eosinophils Absolute 0.08 0.00 - 0.50 K/mcL LAB HEMETOLOGY METHOD 08/01/2024 8:20 AM EST [facility] Basophils Absolute 0.01 0.00 - 0.20 K/mcL LAB HEMETOLOGY METHOD 08/01/2024 8:20 AM EST [facility] Immature Granulocytes Absolute 0.13(H) 0.00 - 0.03 K/mcL LAB HEMETOLOGY METHOD 08/01/2024 8:20 AM [facility] Blood Venous blood specimen / Unknown Existing Catheter / Unknown 08/01/2024 6:59 AM EST 08/01/2024 8:07 AM EST us Jonny Mathur MD LAB BLOOD ORDERABLES Final Re sult [facility] [address] [place] [address], * (ABNORMAL) Basic metabolic panel (08/01/2024 6:59 AM EST) Sodium 132(L) 133 - 145 mmol/L LAB CHEMISTRY METHOD 08/01/2024 8:41 AM EST [facility] Potassium 4.7 3.5 - 5.5 mmol/L LAB CHEMISTRY METHOD 08/01/2024 8:41 AM [facility] Chloride 96 96 - 110 mmol/L LAB CHEMISTRY METHOD 08/01/2024 8:41 AM [facility] CO2 30 21 - 32 mmol/L LAB CHEMISTRY METHOD 08/01/2024 8:41 AM [facility] Anion Gap 6 3 - 11 LAB CHEMISTRY METHOD 08/01/2024 8:41 AM [facility] Glucose 74 70 - 100 mg/dL LAB CHEMISTRY METHOD 08/01/2024 8:41 AM [facility] BUN 71(H) 5 - 25 mg/dL LAB CHEMISTRY METHOD 08/01/2024 8:41 AM [facility] Creatinine 4.62(H) 0.50 - 1.10 mg/dL LAB CHEMISTRY METHOD 08/01/2024 8:41 AM [facility] eGFR 9(L) >=60 mL/min/1. 73m2 LAB CHEMISTRY METHOD 08/01/2024 8:41 AM [facility] Comment:Calculation based on the??Chronic Kidney Disease Epidemiology Collaboration (CKD-EPI) equation refit??without adjustment for race. BUN/Creatinine Ratio 15.4 LAB CHEMISTRY METHOD 08/01/2024 8:41 AM [facility] Calcium 8.6 8.5 - 10.5 mg/dL LAB CHEMISTRY METHOD 08/01/2024 8:41 AM [facility] Blood Venous blood specimen / Unknown Existing Catheter / Unknown 08/01/2024 6:59 AM EST 08/01/2024 8:07 AM EST us Jonny Mathur MD LAB BLOOD ORDERABLES Final Re sult [facility] [address] [place] [address], [place] [phone] * (ABNORMAL) POCT Glucose, blood (07/31/2024 8:23 PM EST) Glucose POCT 279(H) 70 - 100 mg/dL 07/31/2024 8:24 PM EST [facility] POCT Comment RN Notified 07/31/2024 8:24 PM EST [facility] Blood Capillary blood specimen / Unknown 07/31/2024 8:23 PM EST 07/31/2024 8:25 PM EST us Jnony Mathur MD LAB POINT OF CARE TE ST DOCKED DEVICE UNSOLICITED RESULTS Final Result Performing Organization Address [facility]/ZIP Co de Phone Number [facility] [address] [place] [address], [place] [phone] * (ABNORMAL) POCT Glucose, blood (07/31/2024 4:20 PM EST) [facility] Glucose POCT 241(H) 70 - 100 mg/dL 07/31/2024 4:21 PM EST [facility] Blood Capillary blood specimen / Unknown 07/31/2024 4:20 PM EST 07/31/2024 4:22 PM EST Jonny Mathur MD LAB POINT OF CARE TE ST DOCKED DEVICE UNSOLICITED RESULTS Final Result [facility] [address] [place] [address], [place] [phone] * (ABNORMAL) Hemoglobin and hematocrit (07/31/2024 2:30 PM EST) Pathologist [facility] [place] Hemoglobin 7.3(L) 11.5 - 16.0 g/dL LAB HEMETOLOGY METHOD 07/31/2024 3:12 PM EST [facility] Hematocrit 23.7(L) 35.0 - 47.0 % LAB HEMETOLOGY METHOD 07/31/2024 3:12 PM EST [facility] Blood Venous blood specimen / Unknown Venipuncture / Unknown 07/31/2024 2:30 PM EST 07/31/2024 3:05 PM EST us Jonny Mathur MD LAB BLOOD ORDERABLES Final Re sult Performing Organization Address [facility]/ZIP Co de Phone Number [facility] [address] [place] [address], [place] [phone] * (ABNORMAL) POCT Glucose, blood (07/31/2024 11:22 AM EST) Glucose POCT 132(H) 70 - 100 mg/dL 07/31/2024 11:24 AM EST [facility] Blood Capillary blood specimen / Unknown 07/31/2024 11:22 AM EST 07/31/2024 11:25 AM EST us Jonny Mathur MD LAB POINT OF CARE TE ST DOCKED DEVICE UNSOLICITED RESULTS Final Result Performing Organization Address [facility]/ZIP Co de Phone Number [facility] [address] [place] [address], [place] [phone] * (ABNORMAL) POCT Glucose, blood (07/31/2024 8:06 AM EST) Glucose POCT 112(H) 70 - 100 mg/dL 07/31/2024 8:06 AM EST [facility] Blood Capillary blood specimen / Unknown 07/31/2024 8:06 AM EST 07/31/2024 8:08 AM EST us Jonny Mathur MD LAB POINT OF CARE TE ST DOCKED DEVICE UNSOLICITED RESULTS Final Result Performing Organization Address [facility]/ZIP Co de Phone Number [facility] [address] [place] [address], [place] [phone] * (ABNORMAL) CBC auto differential (07/31/2024 5:43 AM EST) [facility] WBC 7.4 4.8 - 10.8 K/mcL LAB HEMETOLOGY METHOD 07/31/2024 7:02 AM [facility] RBC 2.60(L) 3.80 - 4.80 M/mcL LAB HEMETOLOGY METHOD 07/31/2024 7:02 AM [facility] Hemoglobin 6.7(L) 11.5 - 16.0 g/dL LAB HEMETOLOGY METHOD 07/31/2024 7:02 AM [facility] Hematocrit 22.0(L) 35.0 - 47.0 % LAB HEMETOLOGY METHOD 07/31/2024 7:02 AM [facility] MCV 84.0 79.0 - 98.0 FL LAB HEMETOLOGY METHOD 07/31/2024 7:02 AM [facility] MCH 25.6(L) 27.0 - 32.0 pcg LAB HEMETOLOGY METHOD 07/31/2024 7:02 AM [facility] MCHC 30.5(L) 32.0 - 37.0 g/dL LAB HEMETOLOGY METHOD 07/31/2024 7:02 AM [facility] RDW 23.1(H) 11.0 - 15.0 % LAB HEMETOLOGY METHOD 07/31/2024 7:02 AM [facility] Platelets 183 130 - 400 K/mcL LAB HEMETOLOGY METHOD 07/31/2024 7:02 AM [facility] MPV 11.1(H) 7.0 - 11.0 FL LAB HEMETOLOGY METHOD 07/31/2024 7:02 AM [facility] NRBC 0.0 <1.0 % LAB HEMETOLOGY METHOD 07/31/2024 7:02 AM [facility] NRBC Absolute 0.00 <0.10 K/mcL LAB HEMETOLOGY METHOD 07/31/2024 7:02 AM [facility] Neutrophils Relative 77.7 % LAB HEMETOLOGY METHOD 07/31/2024 7:02 AM [facility] Lymphocytes Relative 11.7 % LAB HEMETOLOGY METHOD 07/31/2024 7:02 AM [facility] Monocytes Relative 8.6 % LAB HEMETOLOGY METHOD 07/31/2024 7:02 AM [facility] Eosinophils Relative 0.3 % LAB HEMETOLOGY METHOD 07/31/2024 7:02 AM [facility] Basophils Relative 0.1 % LAB HEMETOLOGY METHOD 07/31/2024 7:02 AM [facility] Immature Granulocytes Relative 1.6 % LAB HEMETOLOGY METHOD 07/31/2024 7:02 AM [facility] Neutrophils Absolute 5.77 1.50 - 7.00 K/mcL LAB HEMETOLOGY METHOD 07/31/2024 7:02 AM [facility] Lymphocytes Absolute 0.87(L) 1.00 - 5.00 K/mcL LAB HEMETOLOGY METHOD 07/31/2024 7:02 AM [facility] Monocytes Absolute 0.64 0.20 - 1.00 K/mcL LAB HEMETOLOGY METHOD 07/31/2024 7:02 AM [facility] Eosinophils Absolute 0.02 0.00 - 0.50 K/mcL LAB HEMETOLOGY METHOD 07/31/2024 7:02 AM [facility] Basophils Absolute 0.01 0.00 - 0.20 K/mcL LAB HEMETOLOGY METHOD 07/31/2024 7:02 AM [facility] Immature Granulocytes Absolute 0.12(H) 0.00 - 0.03 K/mcL LAB HEMETOLOGY METHOD 07/31/2024 7:02 AM [facility] Blood Venous blood specimen / Unknown Existing Catheter / Unknown 07/31/2024 5:43 AM EST 07/31/2024 6:34 AM EST us Jonny Mtahur MD LAB BLOOD ORDERABLES Final Re sult [facility] [address] [place] [address], [place] [phone] * (ABNORMAL) Basic metabolic panel (07/31/2024 5:43 AM EST) Sodium 132(L) 133 - 145 mmol/L LAB CHEMISTRY METHOD 07/31/2024 7:22 AM [facility] Potassium 4.4 3.5 - 5.5 mmol/L LAB CHEMISTRY METHOD 07/31/2024 7:22 AM [facility] Chloride 94(L) 96 - 110 mmol/L LAB CHEMISTRY METHOD 07/31/2024 7:22 AM [facility] CO2 31 21 - 32 mmol/L LAB CHEMISTRY METHOD 07/31/2024 7:22 AM [facility] Anion Gap 7 3 - 11 LAB CHEMISTRY METHOD 07/31/2024 7:22 AM [facility] Glucose 123(H) 70 - 100 mg/dL LAB CHEMISTRY METHOD 07/31/2024 7:22 AM [facility] BUN 54(H) 5 - 25 mg/dL LAB CHEMISTRY METHOD 07/31/2024 7:22 AM [facility] Creatinine 3.73(H) 0.50 - 1.10 mg/dL LAB CHEMISTRY METHOD 07/31/2024 7:22 AM [facility] eGFR 12(L) >=60 mL/min/1. 73m2 LAB CHEMISTRY METHOD 07/31/2024 7:22 AM [facility] Comment:Calculation based on the??Chronic Kidney Disease Epidemiology Collaboration (CKD-EPI) equation refit??without adjustment for race. BUN/Creatinine Ratio 14.5 LAB CHEMISTRY METHOD 07/31/2024 7:22 AM EST [facility] Calcium 8.3(L) 8.5 - 10.5 mg/dL LAB CHEMISTRY METHOD 07/31/2024 7:22 AM EST [facility] Blood Venous blood specimen / Unknown Existing Catheter / Unknown 07/31/2024 5:43 AM EST 07/31/2024 6:36 AM EST us Jonny Mathur MD LAB BLOOD ORDERABLES Final Re sult [facility] [address] [place] [address], [place] [phone] * (ABNORMAL) POCT Glucose, blood (07/30/2024 7:51 PM EST) Glucose POCT 315(H) 70 - 100 mg/dL 07/30/2024 7:51 PM EST [facility] Blood Capillary blood specimen / Unknown 07/30/2024 7:51 PM EST 07/30/2024 7:52 PM EST us Jonny Mathur MD LAB POINT OF CARE TE ST DOCKED DEVICE UNSOLICITED RESULTS Final Result [facility] [address] [place] [address], [place] [phone] * (ABNORMAL) POCT Glucose, blood (07/30/2024 5:02 PM EST) Glucose POCT 299(H) 70 - 100 mg/dL 07/30/2024 5:03 PM EST [facility] Blood Capillary blood specimen / Unknown 07/30/2024 5:02 PM EST 07/30/2024 5:04 PM EST Jonny Mathur MD LAB POINT OF CARE TE ST DOCKED DEVICE UNSOLICITED RESULTS Final Result Performing Organization Address City/[facility]/ZIP Co de Phone Number [facility] [address] [place] [address], [place] [phone] * (ABNORMAL) Hemoglobin and hematocrit (07/30/2024 3:32 PM EST) [facility] Hemoglobin 7.1(L) 11.5 - 16.0 g/dL LAB HEMETOLOGY METHOD 07/30/2024 3:53 PM EST [facility] Hematocrit 23.1(L) 35.0 - 47.0 % LAB HEMETOLOGY METHOD 07/30/2024 3:53 PM EST [facility] Blood Venous blood specimen / Unknown Venipuncture / Unknown 07/30/2024 3:32 PM EST 07/30/2024 3:46 PM EST Jonny Mathur MD LAB BLOOD ORDERABLES Final Re sult [facility] [address] [place] [address], [place] [phone] * (ABNORMAL) Hepatic Function Panel - STAT (07/30/2024 11:52 AM EST) Pathologist [facility] [place] Total Protein 5.2(L) 6.0 - 8.0 g/dL LAB CHEMISTRY METHOD 07/30/2024 12:56 PM EST [facility] Albumin 2.4(L) 3.2 - 5.0 g/dL LAB CHEMISTRY METHOD 07/30/2024 12:56 PM EST [facility] Total Bilirubin 0.4 0.0 - 1.4 mg/dL LAB CHEMISTRY METHOD 07/30/2024 12:56 PM [facility] Bilirubin, Direct 0.2 0.0 - 0.3 mg/dL LAB CHEMISTRY METHOD 07/30/2024 12:56 PM EST [facility] Bilirubin, Indirect 0.2 0.0 - 1.1 mg/dL LAB CHEMISTRY METHOD 07/30/2024 12:56 PM [facility] ALT (SGPT) 17 10 - 60 unit/L LAB CHEMISTRY METHOD 07/30/2024 12:56 PM [facility] AST (SGOT) 12 10 - 42 unit/L LAB CHEMISTRY METHOD 07/30/2024 12:56 PM [facility] Alkaline Phosphatase 80 42 - 121 unit/L LAB CHEMISTRY METHOD 07/30/2024 12:56 PM [facility] Blood Venous blood specimen / Unknown Venipuncture / Unknown 07/30/2024 11:52 AM EST 07/30/2024 12:28 PM EST Jonny Mathur MD LAB BLOOD ORDERABLES Final Re sult Performing Organization Address City/[facility]/ZIP Co de Phone Number [facility] [address] [place] [address], [place] [phone] * (ABNORMAL) POCT Glucose, blood (07/30/2024 11:22 AM EST) Glucose POCT 182(H) 70 - 100 mg/dL 07/30/2024 11:25 AM EST [facility] Blood Capillary blood specimen / Unknown 07/30/2024 11:22 AM EST 07/30/2024 11:25 AM EST Jonny Mathur MD LAB POINT OF CARE TE ST DOCKED DEVICE UNSOLICITED RESULTS Final Result Performing Organization Address [facility]/ZIP Co de Phone Number [facility] [address] [place] [address], [place] [phone] * (ABNORMAL) POCT Glucose, blood (07/30/2024 7:47 AM EST) Glucose POCT 173(H) 70 - 100 mg/dL 07/30/2024 7:48 AM [facility] Blood Capillary blood specimen / Unknown 07/30/2024 7:47 AM EST 07/30/2024 7:49 AM EST us Jonny Mathur MD LAB POINT OF CARE TE ST DOCKED DEVICE UNSOLICITED RESULTS Final Result [facility] [address] [place] [address], [place] [phone] * (ABNORMAL) CBC - Every 3 Days (07/30/2024 6:10 AM EST) [facility] WBC 8.0 4.8 - 10.8 K/mcL LAB HEMETOLOGY METHOD 07/30/2024 6:55 AM [facility] RBC 2.90(L) 3.80 - 4.80 M/mcL LAB HEMETOLOGY METHOD 07/30/2024 6:55 AM [facility] Hemoglobin 7.2(L) 11.5 - 16.0 g/dL LAB HEMETOLOGY METHOD 07/30/2024 6:55 AM [facility] Hematocrit 23.9(L) 35.0 - 47.0 % LAB HEMETOLOGY METHOD 07/30/2024 6:55 AM [facility] MCV 83.6 79.0 - 98.0 FL LAB HEMETOLOGY METHOD 07/30/2024 6:55 AM [facility] MCH 25.2(L) 27.0 - 32.0 pcg LAB HEMETOLOGY METHOD 07/30/2024 6:55 AM [facility] MCHC 30.1(L) 32.0 - 37.0 g/dL LAB HEMETOLOGY METHOD 07/30/2024 6:55 AM [facility] RDW 22.9(H) 11.0 - 15.0 % LAB HEMETOLOGY METHOD 07/30/2024 6:55 AM EST [facility] Platelets 176 130 - 400 K/mcL LAB HEMETOLOGY METHOD 07/30/2024 6:55 AM EST [facility] MPV 10.7 7.0 - 11.0 FL LAB HEMETOLOGY METHOD 07/30/2024 6:55 AM EST [facility] NRBC 0.0 <1.0 % LAB HEMETOLOGY METHOD 07/30/2024 6:55 AM EST [facility] NRBC Absolute 0.00 <0.10 K/mcL LAB HEMETOLOGY METHOD 07/30/2024 6:55 AM EST [facility] Blood Venous blood specimen / Unknown Venipuncture / Unknown 07/30/2024 6:10 AM EST 07/30/2024 6:25 AM EST Lencho Stuart MD LAB BLOOD ORDERABLES Final R esult [facility] [address] [place] [address], [place] [phone] * (ABNORMAL) Heparin and low molecular weight anti Xa level (07/30/2024 6:10 AM EST) Heparin Anti-Xa 1.16(H) 0.30 - 0.70 I Unit/mL LAB COAGULATION METHOD 07/30/2024 6:53 AM EST [facility] Blood Venous blood specimen / Unknown Venipuncture / Unknown 07/30/2024 6:10 AM EST 07/30/2024 6:26 AM EST Narrative [facility] - 07/30/2024 6:53 AM EST Therapeutic range listed is for Unfractionated Heparin. LMW Heparin therapeutic range: 0.50-1.20 IU/mL Jonny Mathur MD LAB BLOOD ORDERABLES Final Re sult Performing Organization Address [facility]/ZIP Co de Phone Number [facility] [address] [place] [address], [place] [phone] * (ABNORMAL) POCT Glucose, blood (07/29/2024 8:11 PM EST) Pathologist [facility] [place] Glucose POCT 321(H) 70 - 100 mg/dL 07/29/2024 8:19 PM EST [facility] Blood Capillary blood specimen / Unknown 07/29/2024 8:11 PM EST 07/29/2024 8:20 PM EST us Jonny Mathur MD LAB POINT OF CARE TE ST DOCKED DEVICE UNSOLICITED RESULTS Final Result Performing Organization Address [facility]/ZIP Co de Phone Number [facility] [address] [place] [address], [place] [phone] * (ABNORMAL) POCT Glucose, blood (07/29/2024 4:19 PM EST) [facility] Glucose POCT 267(H) 70 - 100 mg/dL 07/29/2024 4:21 PM EST [facility] Blood Capillary blood specimen / Unknown 07/29/2024 4:19 PM EST 07/29/2024 4:22 PM EST us Jonny Mathur MD LAB POINT OF CARE TE ST DOCKED DEVICE UNSOLICITED RESULTS Final Result Performing Organization Address [facility]/ZIP Co de Phone Number [facility] [address] [place] [address], [place] [phone] * Hepatitis B surface antigen with reflex to confirmation (07/29/2024 11:51 AM EST) Pathologist [facility] [place] Hepatitis B Surface Ag Negative Negative LAB CHEMISTRY METHOD 07/29/2024 3:12 PM EST [facility] Blood Venous blood specimen / Unknown Venipuncture / Unknown 07/29/2024 11:51 AM EST 07/29/2024 1:08 PM EST Narrative [facility] - 07/29/2024 3:12 PM EST Over the counter supplements containing high doses of biotin may interfere with this assay. ??If interference is suspected, patients shoud be retested after refraining from biotin supplements for 72 hours. us Jonny Mathur MD LAB BLOOD ORDERABLES Final Re sult [facility] [address] [place] [address], [place] [phone] * (ABNORMAL) POCT Glucose, blood (07/29/2024 11:23 AM EST) Glucose POCT 108(H) 70 - 100 mg/dL 07/29/2024 11:30 AM EST [facility] Blood Capillary blood specimen / Unknown 07/29/2024 11:23 AM EST 07/29/2024 11:31 AM EST us Jonny Mathur MD LAB POINT OF CARE TE ST DOCKED DEVICE UNSOLICITED RESULTS Final Result Performing Organization Address City[facility]/ZIP Co de Phone Number [facility] [address] [place] [address], [place] [phone] * Heparin and low molecular weight anti Xa level (07/29/2024 5:54 AM EST) Heparin Anti-Xa 0.61 0.30 - 0.70 I Unit/mL LAB COAGULATION METHOD 07/29/2024 6:54 AM EST [facility] Blood Venous blood specimen / Unknown Venipuncture / Unknown 07/29/2024 5:54 AM EST 07/29/2024 6:34 AM EST Narrative [facility] - 07/29/2024 6:54 AM EST Therapeutic range listed is for Unfractionated Heparin. LMW Heparin therapeutic range: 0.50-1.20 IU/mL us Jonny Mathur MD LAB BLOOD ORDERABLES Final Re sult [facility] [address] [place] [address], [place] [phone] * (ABNORMAL) CBC auto differential (07/29/2024 5:54 AM EST) [facility] WBC 7.3 4.8 - 10.8 K/mcL LAB HEMETOLOGY METHOD 07/29/2024 6:55 AM EST [facility] RBC 2.60(L) 3.80 - 4.80 M/mcL LAB HEMETOLOGY METHOD 07/29/2024 6:55 AM [facility] Hemoglobin 6.7(L) 11.5 - 16.0 g/dL LAB HEMETOLOGY METHOD 07/29/2024 6:55 AM [facility] Hematocrit 21.7(L) 35.0 - 47.0 % LAB HEMETOLOGY METHOD 07/29/2024 6:55 AM EST [facility] MCV 82.8 79.0 - 98.0 FL LAB HEMETOLOGY METHOD 07/29/2024 6:55 AM [facility] MCH 25.6(L) 27.0 - 32.0 pcg LAB HEMETOLOGY METHOD 07/29/2024 6:55 AM [facility] MCHC 30.9(L) 32.0 - 37.0 g/dL LAB HEMETOLOGY METHOD 07/29/2024 6:55 AM [facility] RDW 23.1(H) 11.0 - 15.0 % LAB HEMETOLOGY METHOD 07/29/2024 6:55 AM [facility] Platelets 146 130 - 400 K/mcL LAB HEMETOLOGY METHOD 07/29/2024 6:55 AM [facility] MPV 10.7 7.0 - 11.0 FL LAB HEMETOLOGY METHOD 07/29/2024 6:55 AM [facility] NRBC 0.0 <1.0 % LAB HEMETOLOGY METHOD 07/29/2024 6:55 AM [facility] NRBC Absolute 0.00 <0.10 K/mcL LAB HEMETOLOGY METHOD 07/29/2024 6:55 AM [facility] Neutrophils Relative 83.4 % LAB HEMETOLOGY METHOD 07/29/2024 6:55 AM [facility] Lymphocytes Relative 8.2 % LAB HEMETOLOGY METHOD 07/29/2024 6:55 AM [facility] Monocytes Relative 6.1 % LAB HEMETOLOGY METHOD 07/29/2024 6:55 AM [facility] Eosinophils Relative 0.3 % LAB HEMETOLOGY METHOD 07/29/2024 6:55 AM [facility] Basophils Relative 0.1 % LAB HEMETOLOGY METHOD 07/29/2024 6:55 AM [facility] Immature Granulocytes Relative 1.9 % LAB HEMETOLOGY METHOD 07/29/2024 6:55 AM [facility] Neutrophils Absolute 6.11 1.50 - 7.00 K/mcL LAB HEMETOLOGY METHOD 07/29/2024 6:55 AM [facility] Lymphocytes Absolute 0.60(L) 1.00 - 5.00 K/mcL LAB HEMETOLOGY METHOD 07/29/2024 6:55 AM [facility] Monocytes Absolute 0.45 0.20 - 1.00 K/mcL LAB HEMETOLOGY METHOD 07/29/2024 6:55 AM [facility] Eosinophils Absolute 0.02 0.00 - 0.50 K/mcL LAB HEMETOLOGY METHOD 07/29/2024 6:55 AM [facility] Basophils Absolute 0.01 0.00 - 0.20 K/mcL LAB HEMETOLOGY METHOD 07/29/2024 6:55 AM EST [facility] Immature Granulocytes Absolute 0.14(H) 0.00 - 0.03 K/[facility] LAB HEMETOLOGY METHOD 07/29/2024 6:55 AM EST [facility] Blood Venous blood specimen / Unknown Venipuncture / Unknown 07/29/2024 5:54 AM EST 07/29/2024 6:34 AM EST us Jonny Mathur MD LAB BLOOD ORDERABLES Final Re sult [facility] [address] [place] [address], [place] [phone] * (ABNORMAL) Basic metabolic panel (07/29/2024 5:54 AM EST) Sodium 131(L) 133 - 145 mmol/L LAB CHEMISTRY METHOD 07/29/2024 7:22 AM [facility] Potassium 4.2 3.5 - 5.5 mmol/L LAB CHEMISTRY METHOD 07/29/2024 7:22 AM [facility] Chloride 95(L) 96 - 110 mmol/L LAB CHEMISTRY METHOD 07/29/2024 7:22 AM [facility] CO2 31 21 - 32 mmol/L LAB CHEMISTRY METHOD 07/29/2024 7:22 AM [facility] Anion Gap 5 3 - 11 LAB CHEMISTRY METHOD 07/29/2024 7:22 AM [facility] Glucose 180(H) 70 - 100 mg/dL LAB CHEMISTRY METHOD 07/29/2024 7:22 AM [facility] BUN 49(H) 5 - 25 mg/dL LAB CHEMISTRY METHOD 07/29/2024 7:22 AM [facility] Creatinine 3.73(H) 0.50 - 1.10 mg/dL LAB CHEMISTRY METHOD 07/29/2024 7:22 AM EST [facility] eGFR 12(L) >=60 mL/min/1. 73m2 LAB CHEMISTRY METHOD 07/29/2024 7:22 AM EST [facility] Comment:Calculation based on the??Chronic Kidney Disease Epidemiology Collaboration (CKD-EPI) equation refit??without adjustment for race. BUN/Creatinine Ratio 13.1 LAB CHEMISTRY METHOD 07/29/2024 7:22 AM [facility] Calcium 7.8(L) 8.5 - 10.5 mg/dL LAB CHEMISTRY METHOD 07/29/2024 7:22 AM [facility] Blood Venous blood specimen / Unknown Venipuncture / Unknown 07/29/2024 5:54 AM EST 07/29/2024 6:34 AM EST Jonny Mathur MD LAB BLOOD ORDERABLES Final Re sult Performing Organization Address [facility]/ZIP Co de Phone Number [facility] [address] [place] [address], [place] [phone] * Heparin and low molecular weight anti Xa level (07/28/2024 11:42 PM EST) Heparin Anti-Xa 0.65 0.30 - 0.70 I Unit/mL LAB COAGULATION METHOD 07/29/2024 12:10 AM EST [facility] Blood Venous blood specimen / Unknown Venipuncture / Unknown 07/28/2024 11:42 PM EST 07/28/2024 11:52 PM EST Narrative [facility] - 07/29/2024 12:10 AM EST Therapeutic range listed is for Unfractionated Heparin. LMW Heparin therapeutic range: 0.50-1.20 IU/mL us Jonny Mathur MD LAB BLOOD ORDERABLES Final Re sult [facility] [address] [place] [address], [place] [phone] * (ABNORMAL) Heparin and low molecular weight anti Xa level (07/28/2024 7:46 PM EST) [facility] Heparin Anti-Xa 1.05(H) 0.30 - 0.70 I Unit/mL LAB COAGULATION METHOD 07/28/2024 9:19 PM EST [facility] Blood Venous blood specimen / Unknown Venipuncture / Unknown 07/28/2024 7:46 PM EST 07/28/2024 9:09 PM EST Narrative [facility] - 07/28/2024 9:19 PM EST Therapeutic range listed is for Unfractionated Heparin. LMW Heparin therapeutic range: 0.50-1.20 IU/mL us Jonny Mathur MD LAB BLOOD ORDERABLES Final Re sult [facility] [address] [place] [address], [place] [phone] * (ABNORMAL) POCT Glucose, blood (07/28/2024 7:41 PM EST) [facility] Glucose POCT 269(H) 70 - 100 mg/dL 07/28/2024 7:41 PM EST [facility] Blood Capillary blood specimen / Unknown 07/28/2024 7:41 PM EST 07/28/2024 7:43 PM EST us Jonny Mathur MD LAB POINT OF CARE TE ST DOCKED DEVICE UNSOLICITED RESULTS Final Result [facility] [address] [place] [address], [place] [phone] * (ABNORMAL) POCT Glucose, blood (07/28/2024 4:54 PM EST) [facility] Glucose POCT 258(H) 70 - 100 mg/dL 07/28/2024 4:56 PM EST [facility] Blood Capillary blood specimen / Unknown 07/28/2024 4:54 PM EST 07/28/2024 4:57 PM EST Jonny Mathur MD LAB POINT OF CARE TE ST DOCKED DEVICE UNSOLICITED RESULTS Final Result Performing Organization Address [facility] de Phone Number [facility] [address] [place] [address], * Hepatitis B core antibody IgM (07/28/2024 12:19 PM EST) Hep B Core IgM Negative Negative LAB CHEMISTRY METHOD 07/28/2024 3:22 PM EST [facility] Blood Venous blood specimen / Unknown Venipuncture / Unknown 07/28/2024 12:19 PM EST 07/28/2024 12:35 PM EST Narrative [facility] - 07/28/2024 3:22 PM EST Over the counter supplements containing high doses of biotin may interfere with this assay. ??If interference is suspected, patients shoud be retested after refraining from biotin supplements for 72 hours. Miguel Quiles MD LAB BLOOD ORDERABLES Final Res ult Performing Organization Address City[facility]/ZIP Co de Phone Number [facility] [address] [place] [address], * Hepatitis B surface antibody (07/28/2024 12:19 PM EST) Hepatitis B Surface Ab Negative Negative LAB CHEMISTRY METHOD 07/28/2024 1:40 PM EST [facility] Hepatitis B Surface Ab Quantitative <3.1 mIU/mL LAB CHEMISTRY METHOD 07/28/2024 1:40 PM EST [facility] Blood Venous blood specimen / Unknown Venipuncture / Unknown 07/28/2024 12:19 PM EST 07/28/2024 12:35 PM EST Narrative [facility] - 07/28/2024 1:40 PM EST >=10 mIU/mL is considered to be consistent with immunity. Miguel Quiles MD LAB BLOOD ORDERABLES Final Res ult [facility] [address] [place] [address], [place] [phone] * (ABNORMAL) POCT Glucose, blood (07/28/2024 11:02 AM EST) [facility] Glucose POCT 220(H) 70 - 100 mg/dL 07/28/2024 11:04 AM EST [facility] Blood Capillary blood specimen / Unknown 07/28/2024 11:02 AM EST 07/28/2024 11:05 AM EST Jonny Mathur MD LAB POINT OF CARE TE ST DOCKED DEVICE UNSOLICITED RESULTS Final Result Performing Organization Address [facility]/ZIP Co de Phone Number [facility] [address] [place] [address], [place] [phone] * (ABNORMAL) CBC auto differential (07/28/2024 9:51 AM EST) [facility] WBC 13.0(H) 4.8 - 10.8 K/mcL LAB HEMETOLOGY METHOD 07/28/2024 12:32 PM EST [facility] RBC 3.10(L) 3.80 - 4.80 M/mcL LAB HEMETOLOGY METHOD 07/28/2024 12:32 PM EST [facility] Hemoglobin 8.0(L) 11.5 - 16.0 g/dL LAB HEMETOLOGY METHOD 07/28/2024 12:32 PM [facility] Hematocrit 26.5(L) 35.0 - 47.0 % LAB HEMETOLOGY METHOD 07/28/2024 12:32 PM [facility] MCV 84.9 79.0 - 98.0 FL LAB HEMETOLOGY METHOD 07/28/2024 12:32 PM [facility] MCH 25.6(L) 27.0 - 32.0 pcg LAB HEMETOLOGY METHOD 07/28/2024 12:32 PM [facility] MCHC 30.2(L) 32.0 - 37.0 g/dL LAB HEMETOLOGY METHOD 07/28/2024 12:32 PM [facility] RDW 22.8(H) 11.0 - 15.0 % LAB HEMETOLOGY METHOD 07/28/2024 12:32 PM [facility] Platelets 158 130 - 400 K/mcL LAB HEMETOLOGY METHOD 07/28/2024 12:32 PM [facility] MPV 11.5(H) 7.0 - 11.0 FL LAB HEMETOLOGY METHOD 07/28/2024 12:32 PM [facility] NRBC 0.0 <1.0 % LAB HEMETOLOGY METHOD 07/28/2024 12:32 PM [facility] NRBC Absolute 0.00 <0.10 K/mcL LAB HEMETOLOGY METHOD 07/28/2024 12:32 PM [facility] Neutrophils Relative 86.3 % LAB HEMETOLOGY METHOD 07/28/2024 12:32 PM [facility] Lymphocytes Relative 5.8 % LAB HEMETOLOGY METHOD 07/28/2024 12:32 PM [facility] Monocytes Relative 4.8 % LAB HEMETOLOGY METHOD 07/28/2024 12:32 PM [facility] Eosinophils Relative 1.7 % LAB HEMETOLOGY METHOD 07/28/2024 12:32 PM [facility] Basophils Relative 0.1 % LAB HEMETOLOGY METHOD 07/28/2024 12:32 PM EST [facility] Immature Granulocytes Relative 1.3 % LAB HEMETOLOGY METHOD 07/28/2024 12:32 PM [facility] Neutrophils Absolute 11.22(H) 1.50 - 7.00 K/mcL LAB HEMETOLOGY METHOD 07/28/2024 12:32 PM [facility] Lymphocytes Absolute 0.76(L) 1.00 - 5.00 K/mcL LAB HEMETOLOGY METHOD 07/28/2024 12:32 PM [facility] Monocytes Absolute 0.63 0.20 - 1.00 K/mcL LAB HEMETOLOGY METHOD 07/28/2024 12:32 PM [facility] Eosinophils Absolute 0.22 0.00 - 0.50 K/mcL LAB HEMETOLOGY METHOD 07/28/2024 12:32 PM [facility] Basophils Absolute 0.01 0.00 - 0.20 K/mcL LAB HEMETOLOGY METHOD 07/28/2024 12:32 PM EST [facility] Immature Granulocytes Absolute 0.17(H) 0.00 - 0.03 K/mcL LAB HEMETOLOGY METHOD 07/28/2024 12:32 PM [facility] Blood Venous blood specimen / Unknown Venipuncture / Unknown 07/28/2024 9:51 AM EST 07/28/2024 12:19 PM EST us Jonny Mathur MD LAB BLOOD ORDERABLES Final Re sult [facility] [address] [place] [address], * (ABNORMAL) Basic metabolic panel (07/28/2024 9:51 AM EST) Sodium 134 133 - 145 mmol/L LAB CHEMISTRY METHOD 07/28/2024 1:16 PM [facility] Potassium 4.0 3.5 - 5.5 mmol/L LAB CHEMISTRY METHOD 07/28/2024 1:16 PM [facility] Chloride 95(L) 96 - 110 mmol/L LAB CHEMISTRY METHOD 07/28/2024 1:16 PM [facility] CO2 29 21 - 32 mmol/L LAB CHEMISTRY METHOD 07/28/2024 1:16 PM [facility] Anion Gap 10 3 - 11 LAB CHEMISTRY METHOD 07/28/2024 1:16 PM [facility] Glucose 230(H) 70 - 100 mg/dL LAB CHEMISTRY METHOD 07/28/2024 1:16 PM [facility] BUN 32(H) 5 - 25 mg/dL LAB CHEMISTRY METHOD 07/28/2024 1:16 PM [facility] Creatinine 2.82(H) 0.50 - 1.10 mg/dL LAB CHEMISTRY METHOD 07/28/2024 1:16 PM [facility] eGFR 16(L) >=60 mL/min/1. 73m2 LAB CHEMISTRY METHOD 07/28/2024 1:16 PM [facility] Comment:Calculation based on the??Chronic Kidney Disease Epidemiology Collaboration (CKD-EPI) equation refit??without adjustment for race. BUN/Creatinine Ratio 11.3 LAB CHEMISTRY METHOD 07/28/2024 1:16 PM [facility] Calcium 7.9(L) 8.5 - 10.5 mg/dL LAB CHEMISTRY METHOD 07/28/2024 1:16 PM [facility] Blood Venous blood specimen / Unknown Venipuncture / Unknown 07/28/2024 9:51 AM EST 07/28/2024 12:18 PM EST us Jonny Mathur MD LAB BLOOD ORDERABLES Final Re sult [facility] [address] [place] [address], [place] [phone] * (ABNORMAL) Heparin and low molecular weight anti Xa level (07/28/2024 9:51 AM EST) [facility] Signature Heparin Anti-Xa 0.16(L) 0.30 - 0.70 I Unit/mL LAB COAGULATION METHOD 07/28/2024 12:37 PM EST [facility] Blood Venous blood specimen / Unknown Venipuncture / Unknown 07/28/2024 9:51 AM EST 07/28/2024 12:19 PM EST Narrative [facility] - 07/28/2024 12:37 PM EST Therapeutic range listed is for Unfractionated Heparin. LMW Heparin therapeutic range: 0.50-1.20 IU/mL us Jonny Mathur MD LAB BLOOD ORDERABLES Final Re sult [facility] [address] [place] [address], [place] [phone] * (ABNORMAL) POCT Glucose, blood (07/28/2024 9:29 AM EST) [facility] Glucose POCT 214(H) 70 - 100 mg/dL 07/28/2024 10:23 AM EST [facility] Blood Capillary blood specimen / Unknown 07/28/2024 9:29 AM EST 07/28/2024 10:24 AM EST us Jonny Mathur MD LAB POINT OF CARE TE ST DOCKED DEVICE UNSOLICITED RESULTS Final Result [facility] [address] [place] [address], [place] [phone] * Heparin and low molecular weight anti Xa level (07/28/2024 2:09 AM EST) [facility] Signature Heparin Anti-Xa 0.39 0.30 - 0.70 I Unit/mL LAB COAGULATION METHOD 07/28/2024 2:28 AM EST [facility] Blood Venous blood specimen / Unknown Venipuncture / Unknown 07/28/2024 2:09 AM EST 07/28/2024 2:16 AM EST Narrative [facility] - 07/28/2024 2:28 AM EST Therapeutic range listed is for Unfractionated Heparin. LMW Heparin therapeutic range: 0.50-1.20 IU/mL Jonny Mathur MD LAB BLOOD ORDERABLES Final Re sult [facility] [address] [place] [address], [place] [phone] * (ABNORMAL) Heparin and low molecular weight anti Xa level (07/27/2024 11:55 PM EST) Heparin Anti-Xa 0.22(L) 0.30 - 0.70 I Unit/mL LAB COAGULATION METHOD 07/28/2024 12:28 AM EST [facility] Blood Venous blood specimen / Unknown Venipuncture / Unknown 07/27/2024 11:55 PM EST 07/28/2024 12:20 AM EST Narrative [facility] - 07/28/2024 12:28 AM EST Therapeutic range listed is for Unfractionated Heparin. LMW Heparin therapeutic range: 0.50-1.20 IU/mL Jonny Mathur MD LAB BLOOD ORDERABLES Final Re sult [facility] [address] [place] [address], [place] [phone] * (ABNORMAL) Heparin and low molecular weight anti Xa level (07/27/2024 9:31 PM EST) Heparin Anti-Xa 1.11(H) 0.30 - 0.70 I Unit/mL LAB COAGULATION METHOD 07/27/2024 9:51 PM EST [facility] Blood Venous blood specimen / Unknown Venipuncture / Unknown 07/27/2024 9:31 PM EST 07/27/2024 9:37 PM EST Narrative [facility] - 07/27/2024 9:51 PM EST Therapeutic range listed is for Unfractionated Heparin. LMW Heparin therapeutic range: 0.50-1.20 IU/mL Jonny Mathur MD LAB BLOOD ORDERABLES Final Re sult [facility] [address] [place] [address], [place] [phone] * (ABNORMAL) POCT Glucose, blood (07/27/2024 8:12 PM EST) Glucose POCT 249(H) 70 - 100 mg/dL 07/27/2024 8:13 PM EST [facility] Blood Capillary blood specimen / Unknown 07/27/2024 8:12 PM EST 07/27/2024 8:14 PM EST Jonny Mathur MD LAB POINT OF CARE TE ST DOCKED DEVICE UNSOLICITED RESULTS Final Result [facility] [address] [place] [address], [place] [phone] * (ABNORMAL) POCT Glucose, blood (07/27/2024 4:34 PM EST) Glucose POCT 213(H) 70 - 100 mg/dL 07/27/2024 4:40 PM EST [facility] Blood Capillary blood specimen / Unknown 07/27/2024 4:34 PM EST 07/27/2024 4:41 PM EST us Jonny Mathur MD LAB POINT OF CARE TE ST DOCKED DEVICE UNSOLICITED RESULTS Final Result [facility] [address] [place] [address], * (ABNORMAL) Complete blood count (07/27/2024 3:25 PM EST) WBC 17.5(H) 4.8 - 10.8 K/mcL LAB HEMETOLOGY METHOD 07/27/2024 3:46 PM EST [facility] RBC 3.30(L) 3.80 - 4.80 M/mcL LAB HEMETOLOGY METHOD 07/27/2024 3:46 PM [facility] Hemoglobin 8.3(L) 11.5 - 16.0 g/dL LAB HEMETOLOGY METHOD 07/27/2024 3:46 PM [facility] Hematocrit 27.7(L) 35.0 - 47.0 % LAB HEMETOLOGY METHOD 07/27/2024 3:46 PM EST [facility] MCV 83.7 79.0 - 98.0 FL LAB HEMETOLOGY METHOD 07/27/2024 3:46 PM [facility] MCH 25.1(L) 27.0 - 32.0 pcg LAB HEMETOLOGY METHOD 07/27/2024 3:46 PM [facility] MCHC 30.0(L) 32.0 - 37.0 g/dL LAB HEMETOLOGY METHOD 07/27/2024 3:46 PM [facility] RDW 22.5(H) 11.0 - 15.0 % LAB HEMETOLOGY METHOD 07/27/2024 3:46 PM [facility] Platelets 147 130 - 400 K/mcL LAB HEMETOLOGY METHOD 07/27/2024 3:46 PM [facility] MPV 10.8 7.0 - 11.0 FL LAB HEMETOLOGY METHOD 07/27/2024 3:46 PM EST [facility] NRBC 0.0 <1.0 % LAB HEMETOLOGY METHOD 07/27/2024 3:46 PM EST [facility] NRBC Absolute 0.00 <0.10 K/mcL LAB HEMETOLOGY METHOD 07/27/2024 3:46 PM EST [facility] Blood Venous blood specimen / Unknown Venipuncture / Unknown 07/27/2024 3:25 PM EST 07/27/2024 3:29 PM EST us Jonny Mathur MD LAB BLOOD ORDERABLES Final Re sult Performing Organization Address [facility]/ZIP Co de Phone Number [facility] [address] [place] [address], [place] [phone] * (ABNORMAL) Heparin and low molecular weight anti Xa level (07/27/2024 1:42 PM EST) Heparin Anti-Xa <0.04(L) 0.30 - 0.70 I Unit/mL LAB COAGULATION METHOD 07/27/2024 2:08 PM EST [facility] Blood Venous blood specimen / Unknown Venipuncture / Unknown 07/27/2024 1:42 PM EST 07/27/2024 1:52 PM EST Narrative [facility] - 07/27/2024 2:08 PM EST Therapeutic range listed is for Unfractionated Heparin. LMW Heparin therapeutic range: 0.50-1.20 IU/mL us Jonny Matuhr MD LAB BLOOD ORDERABLES Final Re sult [facility] [address] [place] [address], [place] [phone] * (ABNORMAL) Basic metabolic panel (07/27/2024 1:42 PM EST) Sodium 131(L) 133 - 145 mmol/L LAB CHEMISTRY METHOD 07/27/2024 2:30 PM [facility] Potassium 3.8 3.5 - 5.5 mmol/L LAB CHEMISTRY METHOD 07/27/2024 2:30 PM [facility] Chloride 97 96 - 110 mmol/L LAB CHEMISTRY METHOD 07/27/2024 2:30 PM [facility] CO2 28 21 - 32 mmol/L LAB CHEMISTRY METHOD 07/27/2024 2:30 PM [facility] Anion Gap 6 3 - 11 LAB CHEMISTRY METHOD 07/27/2024 2:30 PM [facility] Glucose 150(H) 70 - 100 mg/dL LAB CHEMISTRY METHOD 07/27/2024 2:30 PM [facility] BUN 17 5 - 25 mg/dL LAB CHEMISTRY METHOD 07/27/2024 2:30 PM [facility] Creatinine 1.53(H) 0.50 - 1.10 mg/dL LAB CHEMISTRY METHOD 07/27/2024 2:30 PM [facility] eGFR 34(L) >=60 mL/min/1. 73m2 LAB CHEMISTRY METHOD 07/27/2024 2:30 PM [facility] Comment:Calculation based on the??Chronic Kidney Disease Epidemiology Collaboration (CKD-EPI) equation refit??without adjustment for race. BUN/Creatinine Ratio 11.1 LAB CHEMISTRY METHOD 07/27/2024 2:30 PM [facility] Calcium 7.9(L) 8.5 - 10.5 mg/dL LAB CHEMISTRY METHOD 07/27/2024 2:30 PM [facility] Blood Venous blood specimen / Unknown Venipuncture / Unknown 07/27/2024 1:42 PM EST 07/27/2024 1:52 PM EST us Jonny Mathur MD LAB BLOOD ORDERABLES Final Re sult [facility] [address] [place] [address], [place] [phone] * (ABNORMAL) POCT Glucose, blood (07/27/2024 11:54 AM EST) [facility] Glucose POCT 126(H) 70 - 100 mg/dL 07/27/2024 11:57 AM EST [facility] Blood Capillary blood specimen / Unknown 07/27/2024 11:54 AM EST 07/27/2024 11:58 AM EST Jonny Mathur MD LAB POINT OF CARE TE ST DOCKED DEVICE UNSOLICITED RESULTS Final Result [facility] [address] [place] [address], [place] [phone] * (ABNORMAL) CBC auto differential (07/27/2024 6:27 AM EST) [facility] WBC 12.4(H) 4.8 - 10.8 K/mcL LAB HEMETOLOGY METHOD 07/27/2024 7:55 AM [facility] RBC 3.10(L) 3.80 - 4.80 M/mcL LAB HEMETOLOGY METHOD 07/27/2024 7:55 AM [facility] Hemoglobin 7.7(L) 11.5 - 16.0 g/dL LAB HEMETOLOGY METHOD 07/27/2024 7:55 AM [facility] Hematocrit 25.5(L) 35.0 - 47.0 % LAB HEMETOLOGY METHOD 07/27/2024 7:55 AM [facility] MCV 83.3 79.0 - 98.0 FL LAB HEMETOLOGY METHOD 07/27/2024 7:55 AM [facility] MCH 25.2(L) 27.0 - 32.0 pcg LAB HEMETOLOGY METHOD 07/27/2024 7:55 AM [facility] MCHC 30.2(L) 32.0 - 37.0 g/dL LAB HEMETOLOGY METHOD 07/27/2024 7:55 AM [facility] RDW 22.4(H) 11.0 - 15.0 % LAB HEMETOLOGY METHOD 07/27/2024 7:55 AM [facility] Platelets 143 130 - 400 K/mcL LAB HEMETOLOGY METHOD 07/27/2024 7:55 AM [facility] MPV 11.2(H) 7.0 - 11.0 FL LAB HEMETOLOGY METHOD 07/27/2024 7:55 AM [facility] NRBC 0.0 <1.0 % LAB HEMETOLOGY METHOD 07/27/2024 7:55 AM [facility] NRBC Absolute 0.00 <0.10 K/mcL LAB HEMETOLOGY METHOD 07/27/2024 7:55 AM [facility] Neutrophils Relative 82.8 % LAB HEMETOLOGY METHOD 07/27/2024 7:55 AM [facility] Lymphocytes Relative 10.0 % LAB HEMETOLOGY METHOD 07/27/2024 7:55 AM [facility] Monocytes Relative 4.8 % LAB HEMETOLOGY METHOD 07/27/2024 7:55 AM [facility] Eosinophils Relative 0.8 % LAB HEMETOLOGY METHOD 07/27/2024 7:55 AM [facility] Basophils Relative 0.1 % LAB HEMETOLOGY METHOD 07/27/2024 7:55 AM [facility] Immature Granulocytes Relative 1.5 % LAB HEMETOLOGY METHOD 07/27/2024 7:55 AM [facility] Neutrophils Absolute 10.27(H) 1.50 - 7.00 K/mcL LAB HEMETOLOGY METHOD 07/27/2024 7:55 AM [facility] Lymphocytes Absolute 1.24 1.00 - 5.00 K/mcL LAB HEMETOLOGY METHOD 07/27/2024 7:55 AM EST [facility] LAB Monocytes Absolute 0.59 0.20 - 1.00 K/[facility] LAB HEMETOLOGY METHOD 07/27/2024 7:55 AM EST [facility] LAB Eosinophils Absolute 0.10 0.00 - 0.50 K/[facility] LAB HEMETOLOGY METHOD 07/27/2024 7:55 AM EST [facility] LAB Basophils Absolute 0.01 0.00 - 0.20 K/[facility] LAB HEMETOLOGY METHOD 07/27/2024 7:55 AM EST [facility] Immature Granulocytes Absolute 0.19(H) 0.00 - 0.03 K/[facility] LAB HEMETOLOGY METHOD 07/27/2024 7:55 AM EST [facility] Blood Venous blood specimen / Unknown Venipuncture / Unknown 07/27/2024 6:27 AM EST 07/27/2024 7:41 AM EST us Jonny Mathur MD LAB BLOOD ORDERABLES Final Re sult [facility] [address] [place] [address], * (ABNORMAL) Heparin and low molecular weight anti Xa level (07/27/2024 6:27 AM EST) Heparin Anti-Xa 0.74(H) 0.30 - 0.70 I Unit/mL LAB COAGULATION METHOD 07/27/2024 8:11 AM EST [facility] Blood Venous blood specimen / Unknown Venipuncture / Unknown 07/27/2024 6:27 AM EST 07/27/2024 7:41 AM EST Narrative [facility] - 07/27/2024 8:11 AM EST Therapeutic range listed is for Unfractionated Heparin. LMW Heparin therapeutic range: 0.50-1.20 IU/mL us Jonny Mathur MD LAB BLOOD ORDERABLES Final Re sult [facility] [address] [place] [address], [place] [phone] * (ABNORMAL) CBC - Every 3 Days (07/27/2024 6:27 AM EST) WBC 12.4(H) 4.8 - 10.8 K/mcL LAB HEMETOLOGY METHOD 07/27/2024 7:55 AM [facility] LAB RBC 3.10(L) 3.80 - 4.80 M/mcL LAB HEMETOLOGY METHOD 07/27/2024 7:55 AM [facility] LAB Hemoglobin 7.7(L) 11.5 - 16.0 g/dL LAB HEMETOLOGY METHOD 07/27/2024 7:55 AM [facility] LAB Hematocrit 25.5(L) 35.0 - 47.0 % LAB HEMETOLOGY METHOD 07/27/2024 7:55 AM [facility] LAB MCV 83.3 79.0 - 98.0 FL LAB HEMETOLOGY METHOD 07/27/2024 7:55 AM [facility] LAB MCH 25.2(L) 27.0 - 32.0 pcg LAB HEMETOLOGY METHOD 07/27/2024 7:55 AM [facility] LAB MCHC 30.2(L) 32.0 - 37.0 g/dL LAB HEMETOLOGY METHOD 07/27/2024 7:55 AM [facility] LAB RDW 22.4(H) 11.0 - 15.0 % LAB HEMETOLOGY METHOD 07/27/2024 7:55 AM [facility] LAB Platelets 143 130 - 400 K/mcL LAB HEMETOLOGY METHOD 07/27/2024 7:55 AM EST [facility] MPV 11.2(H) 7.0 - 11.0 FL LAB HEMETOLOGY METHOD 07/27/2024 7:55 AM EST [facility] LAB NRBC 0.0 <1.0 % LAB HEMETOLOGY METHOD 07/27/2024 7:55 AM [facility] LAB NRBC Absolute 0.00 <0.10 K/mcL LAB HEMETOLOGY METHOD 07/27/2024 7:55 AM [facility] Blood Venous blood specimen / Unknown Venipuncture / Unknown 07/27/2024 6:27 AM EST 07/27/2024 7:41 AM EST [facility] LAB BLOOD ORDERABLES Final R esult [facility] [address] [place] [address], * (ABNORMAL) Basic metabolic panel (07/27/2024 6:27 AM EST) Sodium 130(L) 133 - 145 mmol/L LAB CHEMISTRY METHOD 07/27/2024 8:43 AM [facility] Potassium 4.2 3.5 - 5.5 mmol/L LAB CHEMISTRY METHOD 07/27/2024 8:43 AM [facility] Chloride 93(L) 96 - 110 mmol/L LAB CHEMISTRY METHOD 07/27/2024 8:43 AM [facility] LAB CO2 30 21 - 32 mmol/L LAB CHEMISTRY METHOD 07/27/2024 8:43 AM [facility] LAB Anion Gap 7 3 - 11 LAB CHEMISTRY METHOD 07/27/2024 8:43 AM [facility] LAB Glucose 182(H) 70 - 100 mg/dL LAB CHEMISTRY METHOD 07/27/2024 8:43 AM [facility] BUN 62(H) 5 - 25 mg/dL LAB CHEMISTRY METHOD 07/27/2024 8:43 AM [facility] Creatinine 3.88(H) 0.50 - 1.10 mg/dL LAB CHEMISTRY METHOD 07/27/2024 8:43 AM [facility] LAB eGFR 11(L) >=60 mL/min/1. 73m2 LAB CHEMISTRY METHOD 07/27/2024 8:43 AM [facility] LAB Comment:Calculation based on the??Chronic Kidney Disease Epidemiology Collaboration (CKD-EPI) equation refit??without adjustment for race. BUN/Creatinine Ratio 16.0 LAB CHEMISTRY METHOD 07/27/2024 8:43 AM [facility] Calcium 8.2(L) 8.5 - 10.5 mg/dL LAB CHEMISTRY METHOD 07/27/2024 8:43 AM [facility] Blood Venous blood specimen / Unknown Venipuncture / Unknown 07/27/2024 6:27 AM EST 07/27/2024 7:41 AM EST Jonny Mathur MD LAB BLOOD ORDERABLES Final Re sult [facility] [address] [place] [address], [place] [phone] * (ABNORMAL) POCT Glucose, blood (07/26/2024 8:23 PM EST) Glucose POCT 189(H) 70 - 100 mg/dL 07/26/2024 8:24 PM EST [facility] Blood Capillary blood specimen / Unknown 07/26/2024 8:23 PM EST 07/26/2024 8:25 PM EST us Jonny Mathur MD LAB POINT OF CARE TE ST DOCKED DEVICE UNSOLICITED RESULTS Final Result Performing Organization Address City/[facility]/ZIP Co de Phone Number [facility] [address] [place] [address], [place] [phone] * (ABNORMAL) POCT Glucose, blood (07/26/2024 4:28 PM EST) Glucose POCT 192(H) 70 - 100 mg/dL 07/26/2024 4:29 PM EST [facility] Blood Capillary blood specimen / Unknown 07/26/2024 4:28 PM EST 07/26/2024 4:30 PM EST us Jonny Mathur MD LAB POINT OF CARE TE ST DOCKED DEVICE UNSOLICITED RESULTS Final Result [facility] [address] [place] [address], [place] [phone] * (ABNORMAL) POCT Glucose, blood (07/26/2024 11:15 AM EST) Glucose POCT 180(H) 70 - 100 mg/dL 07/26/2024 11:17 AM EST [facility] Blood Capillary blood specimen / Unknown 07/26/2024 11:15 AM EST 07/26/2024 11:18 AM EST us Jonny Mathur MD LAB POINT OF CARE TE ST DOCKED DEVICE UNSOLICITED RESULTS Final Result [facility] [address] [place] [address], [place] [phone] * (ABNORMAL) POCT Glucose, blood (07/26/2024 8:08 AM EST) Glucose POCT 128(H) 70 - 100 mg/dL 07/26/2024 8:09 AM EST [facility] Blood Capillary blood specimen / Unknown 07/26/2024 8:08 AM EST 07/26/2024 8:10 AM EST us Jonny Mathur MD LAB POINT OF CARE TE ST DOCKED DEVICE UNSOLICITED RESULTS Final Result [facility] [address] [place] [address], [place] [phone] * Heparin and low molecular weight anti Xa level (07/26/2024 6:06 AM EST) Heparin Anti-Xa 0.65 0.30 - 0.70 I Unit/mL LAB COAGULATION METHOD 07/26/2024 7:08 AM EST [facility] Blood Venous blood specimen / Unknown Venipuncture / Unknown 07/26/2024 6:06 AM EST 07/26/2024 6:19 AM EST Narrative [facility] - 07/26/2024 7:08 AM EST Therapeutic range listed is for Unfractionated Heparin. LMW Heparin therapeutic range: 0.50-1.20 IU/mL Jonny Mathur MD LAB BLOOD ORDERABLES Final Re sult Performing Organization Address [facility]/ZIP Co de Phone Number [facility] [address] [place] [address], [place] [phone] * (ABNORMAL) POCT Glucose, blood (07/25/2024 9:22 PM EST) Glucose POCT 183(H) 70 - 100 mg/dL 07/25/2024 9:22 PM EST [facility] Blood Capillary blood specimen / Unknown 07/25/2024 9:22 PM EST 07/25/2024 9:23 PM EST us Jonny Mathur MD LAB POINT OF CARE TE ST DOCKED DEVICE UNSOLICITED RESULTS Final Result [facility] [address] [place] [address], [place] [phone] * (ABNORMAL) POCT Glucose, blood (07/25/2024 4:02 PM EST) Glucose POCT 194(H) 70 - 100 mg/dL 07/25/2024 4:02 PM EST [facility] Blood Capillary blood specimen / Unknown 07/25/2024 4:02 PM EST 07/25/2024 4:03 PM EST us Jonny Mathur MD LAB POINT OF CARE TE ST DOCKED DEVICE UNSOLICITED RESULTS Final Result [facility] [address] [place] [address], [place] [phone] * (ABNORMAL) POCT Glucose, blood (07/25/2024 2:56 PM EST) Glucose POCT 143(H) 70 - 100 mg/dL 07/25/2024 2:56 PM EST [facility] Blood Capillary blood specimen / Unknown 07/25/2024 2:56 PM EST 07/25/2024 2:58 PM EST us Jonny Mathur MD LAB POINT OF CARE TE ST DOCKED DEVICE UNSOLICITED RESULTS Final Result [facility] [address] [place] [address], [place] [phone] * (ABNORMAL) POCT Glucose, blood (07/25/2024 8:18 AM EST) Glucose POCT 212(H) 70 - 100 mg/dL 07/25/2024 8:19 AM EST [facility] Blood Capillary blood specimen / Unknown 07/25/2024 8:18 AM EST 07/25/2024 8:20 AM EST us Jonny Mathur MD LAB POINT OF CARE TE ST DOCKED DEVICE UNSOLICITED RESULTS Final Result [facility] [address] [place] [address], * (ABNORMAL) CBC auto differential (07/25/2024 5:35 AM EST) [facility] Signature WBC 14.2(H) 4.8 - 10.8 K/mcL LAB HEMETOLOGY METHOD 07/25/2024 7:21 AM [facility] RBC 3.10(L) 3.80 - 4.80 M/mcL LAB HEMETOLOGY METHOD 07/25/2024 7:21 AM [facility] Hemoglobin 8.0(L) 11.5 - 16.0 g/dL LAB HEMETOLOGY METHOD 07/25/2024 7:21 AM [facility] Hematocrit 25.7(L) 35.0 - 47.0 % LAB HEMETOLOGY METHOD 07/25/2024 7:21 AM [facility] MCV 82.1 79.0 - 98.0 FL LAB HEMETOLOGY METHOD 07/25/2024 7:21 AM [facility] MCH 25.6(L) 27.0 - 32.0 pcg LAB HEMETOLOGY METHOD 07/25/2024 7:21 AM [facility] MCHC 31.1(L) 32.0 - 37.0 g/dL LAB HEMETOLOGY METHOD 07/25/2024 7:21 AM [facility] RDW 21.7(H) 11.0 - 15.0 % LAB HEMETOLOGY METHOD 07/25/2024 7:21 AM [facility] Platelets 158 130 - 400 K/mcL LAB HEMETOLOGY METHOD 07/25/2024 7:21 AM [facility] MPV 10.6 7.0 - 11.0 FL LAB HEMETOLOGY METHOD 07/25/2024 7:21 AM [facility] NRBC 0.0 <1.0 % LAB HEMETOLOGY METHOD 07/25/2024 7:21 AM [facility] NRBC Absolute 0.00 <0.10 K/mcL LAB HEMETOLOGY METHOD 07/25/2024 7:21 AM [facility] Neutrophils Relative 83.3 % LAB HEMETOLOGY METHOD 07/25/2024 7:21 AM [facility] Lymphocytes Relative 8.9 % LAB HEMETOLOGY METHOD 07/25/2024 7:21 AM [facility] Monocytes Relative 6.3 % LAB HEMETOLOGY METHOD 07/25/2024 7:21 AM [facility] Eosinophils Relative 0.6 % LAB HEMETOLOGY METHOD 07/25/2024 7:21 AM [facility] Basophils Relative 0.1 % LAB HEMETOLOGY METHOD 07/25/2024 7:21 AM [facility] Immature Granulocytes Relative 0.8 % LAB HEMETOLOGY METHOD 07/25/2024 7:21 AM [facility] Neutrophils Absolute 11.87(H) 1.50 - 7.00 K/mcL LAB HEMETOLOGY METHOD 07/25/2024 7:21 AM [facility] Lymphocytes Absolute 1.26 1.00 - 5.00 K/mcL LAB HEMETOLOGY METHOD 07/25/2024 7:21 AM [facility] Monocytes Absolute 0.89 0.20 - 1.00 K/mcL LAB HEMETOLOGY METHOD 07/25/2024 7:21 AM [facility] Eosinophils Absolute 0.08 0.00 - 0.50 K/mcL LAB HEMETOLOGY METHOD 07/25/2024 7:21 AM [facility] Basophils Absolute 0.01 0.00 - 0.20 K/mcL LAB HEMETOLOGY METHOD 07/25/2024 7:21 AM EST [facility] Immature Granulocytes Absolute 0.11(H) 0.00 - 0.03 K/mcL LAB HEMETOLOGY METHOD 07/25/2024 7:21 AM EST [facility] Blood Venous blood specimen / Unknown Venipuncture / Unknown 07/25/2024 5:35 AM EST 07/25/2024 6:48 AM EST Lencho Stuart MD LAB BLOOD ORDERABLES Final R esult Performing Organization Address City[facility]/ZIP Co de Phone Number [facility] [address] [place] [address], * Heparin and low molecular weight anti Xa level (07/25/2024 5:35 AM EST) Heparin Anti-Xa 0.61 0.30 - 0.70 I Unit/mL LAB COAGULATION METHOD 07/25/2024 7:17 AM EST [facility] Blood Venous blood specimen / Unknown Venipuncture / Unknown 07/25/2024 5:35 AM EST 07/25/2024 6:48 AM EST Narrative [facility] - 07/25/2024 7:17 AM EST Therapeutic range listed is for Unfractionated Heparin. LMW Heparin therapeutic range: 0.50-1.20 IU/mL Lencho Stuart MD LAB BLOOD ORDERABLES Final R esult [facility] [address] [place] [address], * (ABNORMAL) Basic metabolic panel (07/25/2024 5:35 AM EST) Sodium 132(L) 133 - 145 mmol/L LAB CHEMISTRY METHOD 07/25/2024 7:57 AM EST [facility] Potassium 4.2 3.5 - 5.5 mmol/L LAB CHEMISTRY METHOD 07/25/2024 7:57 AM [facility] Chloride 94(L) 96 - 110 mmol/L LAB CHEMISTRY METHOD 07/25/2024 7:57 AM [facility] CO2 30 21 - 32 mmol/L LAB CHEMISTRY METHOD 07/25/2024 7:57 AM [facility] Anion Gap 8 3 - 11 LAB CHEMISTRY METHOD 07/25/2024 7:57 AM [facility] Glucose 194(H) 70 - 100 mg/dL LAB CHEMISTRY METHOD 07/25/2024 7:57 AM [facility] BUN 77(H) 5 - 25 mg/dL LAB CHEMISTRY METHOD 07/25/2024 7:57 AM [facility] Creatinine 3.91(H) 0.50 - 1.10 mg/dL LAB CHEMISTRY METHOD 07/25/2024 7:57 AM [facility] eGFR 11(L) >=60 mL/min/1. 73m2 LAB CHEMISTRY METHOD 07/25/2024 7:57 AM [facility] Comment:Calculation based on the??Chronic Kidney Disease Epidemiology Collaboration (CKD-EPI) equation refit??without adjustment for race. BUN/Creatinine Ratio 19.7 LAB CHEMISTRY METHOD 07/25/2024 7:57 AM [facility] Calcium 8.2(L) 8.5 - 10.5 mg/dL LAB CHEMISTRY METHOD 07/25/2024 7:57 AM [facility] Blood Venous blood specimen / Unknown Venipuncture / Unknown 07/25/2024 5:35 AM EST 07/25/2024 6:48 AM EST Lencho Stuart MD LAB BLOOD ORDERABLES Final R esult [facility] [address] [place] [address], * (ABNORMAL) POCT Glucose, blood (07/24/2024 7:58 PM EST) Glucose POCT 228(H) 70 - 100 mg/dL 07/24/2024 7:58 PM EST [facility] Blood Capillary blood specimen / Unknown 07/24/2024 7:58 PM EST 07/24/2024 8:00 PM EST us Lencho Stuart MD LAB POINT OF CARE TE ST DOCKED DEVICE UNSOLICITED RESULTS Final Result [facility] [address] [place] [address], [place] [phone] * (ABNORMAL) POCT Glucose, blood (07/24/2024 3:24 PM EST) Glucose POCT 239(H) 70 - 100 mg/dL 07/24/2024 3:25 PM EST [facility] POCT Comment RN Notified 07/24/2024 3:25 PM EST [facility] Blood Capillary blood specimen / Unknown 07/24/2024 3:24 PM EST 07/24/2024 3:26 PM EST us Lencho Stuart MD LAB POINT OF CARE TE ST DOCKED DEVICE UNSOLICITED RESULTS Final Result [facility] [address] [place] [address], [place] [phone] * (ABNORMAL) POCT Glucose, blood (07/24/2024 11:39 AM EST) Glucose POCT 260(H) 70 - 100 mg/dL 07/24/2024 11:40 AM EST [facility] POCT Comment RN Notified 07/24/2024 11:40 AM EST [facility] Blood Capillary blood specimen / Unknown 07/24/2024 11:39 AM EST 07/24/2024 11:41 AM EST us Lencho Stuart MD LAB POINT OF CARE TE ST DOCKED DEVICE UNSOLICITED RESULTS Final Result Performing Organization Address [facility]/ZIP Co de Phone Number [facility] [address] [place] [address], [place] [phone] * (ABNORMAL) POCT Glucose, blood (07/24/2024 7:32 AM EST) Glucose POCT 301(H) 70 - 100 mg/dL 07/24/2024 7:33 AM EST [facility] POCT Comment RN Notified 07/24/2024 7:33 AM EST [facility] Blood Capillary blood specimen / Unknown 07/24/2024 7:32 AM EST 07/24/2024 7:34 AM EST us Lencho Stuart MD LAB POINT OF CARE TE ST DOCKED DEVICE UNSOLICITED RESULTS Final Result Performing Organization Address City[facility]/ZIP Co de Phone Number [facility] [address] [place] [address], [place] [phone] * Heparin and low molecular weight anti Xa level (07/24/2024 6:48 AM EST) Heparin Anti-Xa 0.60 0.30 - 0.70 I Unit/mL LAB COAGULATION METHOD 07/24/2024 7:29 AM EST [facility] Blood Venous blood specimen / Unknown Venipuncture / Unknown 07/24/2024 6:48 AM EST 07/24/2024 7:03 AM EST Narrative [facility] - 07/24/2024 7:29 AM EST Therapeutic range listed is for Unfractionated Heparin. LMW Heparin therapeutic range: 0.50-1.20 IU/mL us Lencho Stuart MD LAB BLOOD ORDERABLES Final R esult [facility] [address] [place] [address], * (ABNORMAL) CBC auto differential (07/24/2024 6:48 AM EST) WBC 13.1(H) 4.8 - 10.8 K/mcL LAB HEMETOLOGY METHOD 07/24/2024 7:30 AM [facility] RBC 3.10(L) 3.80 - 4.80 M/mcL LAB HEMETOLOGY METHOD 07/24/2024 7:30 AM [facility] Hemoglobin 7.7(L) 11.5 - 16.0 g/dL LAB HEMETOLOGY METHOD 07/24/2024 7:30 AM [facility] Hematocrit 25.3(L) 35.0 - 47.0 % LAB HEMETOLOGY METHOD 07/24/2024 7:30 AM [facility] MCV 81.4 79.0 - 98.0 FL LAB HEMETOLOGY METHOD 07/24/2024 7:30 AM [facility] MCH 24.8(L) 27.0 - 32.0 pcg LAB HEMETOLOGY METHOD 07/24/2024 7:30 AM [facility] MCHC 30.4(L) 32.0 - 37.0 g/dL LAB HEMETOLOGY METHOD 07/24/2024 7:30 AM [facility] RDW 21.7(H) 11.0 - 15.0 % LAB HEMETOLOGY METHOD 07/24/2024 7:30 AM [facility] Platelets 174 130 - 400 K/mcL LAB HEMETOLOGY METHOD 07/24/2024 7:30 AM [facility] MPV 10.6 7.0 - 11.0 FL LAB HEMETOLOGY METHOD 07/24/2024 7:30 AM [facility] NRBC 0.0 <1.0 % LAB HEMETOLOGY METHOD 07/24/2024 7:30 AM [facility] NRBC Absolute 0.00 <0.10 K/mcL LAB HEMETOLOGY METHOD 07/24/2024 7:30 AM [facility] Neutrophils Relative 84.4 % LAB HEMETOLOGY METHOD 07/24/2024 7:30 AM [facility] Lymphocytes Relative 6.4 % LAB HEMETOLOGY METHOD 07/24/2024 7:30 AM [facility] Monocytes Relative 8.3 % LAB HEMETOLOGY METHOD 07/24/2024 7:30 AM [facility] Eosinophils Relative 0.0 % LAB HEMETOLOGY METHOD 07/24/2024 7:30 AM [facility] Basophils Relative 0.1 % LAB HEMETOLOGY METHOD 07/24/2024 7:30 AM [facility] Immature Granulocytes Relative 0.8 % LAB HEMETOLOGY METHOD 07/24/2024 7:30 AM [facility] Neutrophils Absolute 11.03(H) 1.50 - 7.00 K/mcL LAB HEMETOLOGY METHOD 07/24/2024 7:30 AM [facility] Lymphocytes Absolute 0.83(L) 1.00 - 5.00 K/mcL LAB HEMETOLOGY METHOD 07/24/2024 7:30 AM [facility] Monocytes Absolute 1.08(H) 0.20 - 1.00 K/mcL LAB HEMETOLOGY METHOD 07/24/2024 7:30 AM [facility] Eosinophils Absolute 0.00 0.00 - 0.50 K/mcL LAB HEMETOLOGY METHOD 07/24/2024 7:30 AM [facility] Basophils Absolute 0.01 0.00 - 0.20 K/mcL LAB HEMETOLOGY METHOD 07/24/2024 7:30 AM [facility] Immature Granulocytes Absolute 0.11(H) 0.00 - 0.03 K/mcL LAB HEMETOLOGY METHOD 07/24/2024 7:30 AM [facility] Blood Venous blood specimen / Unknown Venipuncture / Unknown 07/24/2024 6:48 AM EST 07/24/2024 7:03 AM EST [facility] LAB BLOOD ORDERABLES Final R esult [facility] [address] [place] [address], * (ABNORMAL) CBC - Every 3 Days (07/24/2024 6:48 AM EST) WBC 13.1(H) 4.8 - 10.8 K/mcL LAB HEMETOLOGY METHOD 07/24/2024 7:30 AM [facility] RBC 3.10(L) 3.80 - 4.80 M/mcL LAB HEMETOLOGY METHOD 07/24/2024 7:30 AM [facility] Hemoglobin 7.7(L) 11.5 - 16.0 g/dL LAB HEMETOLOGY METHOD 07/24/2024 7:30 AM [facility] Hematocrit 25.3(L) 35.0 - 47.0 % LAB HEMETOLOGY METHOD 07/24/2024 7:30 AM [facility] MCV 81.4 79.0 - 98.0 FL LAB HEMETOLOGY METHOD 07/24/2024 7:30 AM [facility] MCH 24.8(L) 27.0 - 32.0 pcg LAB HEMETOLOGY METHOD 07/24/2024 7:30 AM [facility] MCHC 30.4(L) 32.0 - 37.0 g/dL LAB HEMETOLOGY METHOD 07/24/2024 7:30 AM EST [facility] RDW 21.7(H) 11.0 - 15.0 % LAB HEMETOLOGY METHOD 07/24/2024 7:30 AM [facility] Platelets 174 130 - 400 K/mcL LAB HEMETOLOGY METHOD 07/24/2024 7:30 AM [facility] MPV 10.6 7.0 - 11.0 FL LAB HEMETOLOGY METHOD 07/24/2024 7:30 AM EST [facility] NRBC 0.0 <1.0 % LAB HEMETOLOGY METHOD 07/24/2024 7:30 AM [facility] NRBC Absolute 0.00 <0.10 K/mcL LAB HEMETOLOGY METHOD 07/24/2024 7:30 AM [facility] Blood Venous blood specimen / Unknown Venipuncture / Unknown 07/24/2024 6:48 AM EST 07/24/2024 7:03 AM EST Lencho Stuart MD LAB BLOOD ORDERABLES Final R esult [facility] [address] [place] [address], * (ABNORMAL) Basic metabolic panel (07/24/2024 6:48 AM EST) Sodium 132(L) 133 - 145 mmol/L LAB CHEMISTRY METHOD 07/24/2024 8:38 AM EST [facility] Potassium 4.1 3.5 - 5.5 mmol/L LAB CHEMISTRY METHOD 07/24/2024 8:38 AM [facility] Chloride 94(L) 96 - 110 mmol/L LAB CHEMISTRY METHOD 07/24/2024 8:38 AM [facility] CO2 29 21 - 32 mmol/L LAB CHEMISTRY METHOD 07/24/2024 8:38 AM [facility] Anion Gap 9 3 - 11 LAB CHEMISTRY METHOD 07/24/2024 8:38 AM [facility] Glucose 286(H) 70 - 100 mg/dL LAB CHEMISTRY METHOD 07/24/2024 8:38 AM [facility] BUN 54(H) 5 - 25 mg/dL LAB CHEMISTRY METHOD 07/24/2024 8:38 AM [facility] Creatinine 2.84(H) 0.50 - 1.10 mg/dL LAB CHEMISTRY METHOD 07/24/2024 8:38 AM [facility] eGFR 16(L) >=60 mL/min/1. 73m2 LAB CHEMISTRY METHOD 07/24/2024 8:38 AM [facility] Comment:Calculation based on the??Chronic Kidney Disease Epidemiology Collaboration (CKD-EPI) equation refit??without adjustment for race. BUN/Creatinine Ratio 19.0 LAB CHEMISTRY METHOD 07/24/2024 8:38 AM [facility] Calcium 8.0(L) 8.5 - 10.5 mg/dL LAB CHEMISTRY METHOD 07/24/2024 8:38 AM [facility] Blood Venous blood specimen / Unknown Venipuncture / Unknown 07/24/2024 6:48 AM EST 07/24/2024 7:03 AM EST us Estdimas Stuart MD LAB BLOOD ORDERABLES Final R esult [facility] [address] [place] [address], * Heparin and low molecular weight anti Xa level (07/24/2024 12:07 AM EST) Heparin Anti-Xa 0.69 0.30 - 0.70 I Unit/mL LAB COAGULATION METHOD 07/24/2024 12:28 AM EST [facility] Blood Venous blood specimen / Unknown Venipuncture / Unknown 07/24/2024 12:07 AM EST 07/24/2024 12:17 AM EST Narrative [facility] - 07/24/2024 12:28 AM EST Therapeutic range listed is for Unfractionated Heparin. LMW Heparin therapeutic range: 0.50-1.20 IU/mL us Lencho Stuart MD LAB BLOOD ORDERABLES Final R esult [facility] [address] [place] [address], [place] [phone] * (ABNORMAL) POCT Glucose, blood (07/23/2024 7:35 PM EST) [facility] Glucose POCT 320(H) 70 - 100 mg/dL 07/23/2024 7:35 PM EST [facility] Blood Capillary blood specimen / Unknown 07/23/2024 7:35 PM EST 07/23/2024 7:37 PM EST us Lencho Stuart MD LAB POINT OF CARE TE ST DOCKED DEVICE UNSOLICITED RESULTS Final Result Performing Organization Address City/[facility]/ZIP Co de Phone Number [facility] [address] [place] [address], [place] [phone] * Transfuse RBC (07/23/2024 6:19 PM EST) us Lencho Stuart MD BLOOD TRANSFUSION ORDERABLES Final Result * Transfuse RBC: 1 Units (07/23/2024 6:19 PM EST) us Lencho Stuart MD BLOOD TRANSFUSION ORDERABLES Final Result * Insert Midline (07/23/2024 4:52 PM EST) Narrative Maggy Spencer RN - 07/23/2024 4:52 PM EST Maggy Spencer RN ? 07/23/2024 ??5:02 PM Midline Insertion Procedure Note Procedure: Insertion of 18g/10cm Bard Powerglide midline Lot: [id number] Exp: 2025-05-28 Indications: ??Difficult draw with frequent labs/HD pt w/ high chance of needing access with Powerglide approval per renal provider Dr Mehta Procedure Details Sterile technique was used including antiseptics, gloves, hand hygiene, mask, and sheet. US guidance utilized, vein accessed and catheter advanced smoothly. AST wire intact and discarded. 18g midline inserted to the Right Basilic vein per hospital protocol. Flushes smoothly with good blood return. Findings: Catheter fully inserted to 10 cm with 0 cm exposed. Mid upper arm circumference is 37cm. ??Catheter was flushed with 10 cc NS and sterile CVC dressing with Biopatch applied. Patient did tolerate procedure well. Recommendations: May use for blood draws us Lencho Stuart MD IV THERAPY ORDERABLES Final Result * (ABNORMAL) POCT Glucose, blood (07/23/2024 4:30 PM EST) [facility] Glucose POCT 248(H) 70 - 100 mg/dL 07/23/2024 4:31 PM EST [facility] Blood Capillary blood specimen / Unknown 07/23/2024 4:30 PM EST 07/23/2024 4:32 PM EST us Lencho Stuart MD LAB POINT OF CARE TE ST DOCKED DEVICE UNSOLICITED RESULTS Final Result [facility] [address] [place] [address], [place] [phone] * (ABNORMAL) Heparin and low molecular weight anti Xa level (07/23/2024 4:08 PM EST) [facility] Heparin Anti-Xa 0.82(H) 0.30 - 0.70 I Unit/mL LAB COAGULATION METHOD 07/23/2024 4:33 PM EST [facility] Blood Venous blood specimen / Unknown Venipuncture / Unknown 07/23/2024 4:08 PM EST 07/23/2024 4:24 PM EST Narrative [facility] - 07/23/2024 4:33 PM EST Therapeutic range listed is for Unfractionated Heparin. LMW Heparin therapeutic range: 0.50-1.20 IU/mL us Lencho Stuart MD LAB BLOOD ORDERABLES Final R esult Performing Organization Address City/[facility]/ZIP Co de Phone Number [facility] [address] [place] [address], [place] [phone] * Type and screen (07/23/2024 12:31 PM EST) ABO Group O 07/23/2024 2:33 PM EST [facility] Rh Type Positive 07/23/2024 2:33 PM EST [facility] Antibody Screen Negative 07/23/2024 2:33 PM EST [facility] Blood Venous blood specimen / Unknown Venipuncture / Unknown 07/23/2024 12:31 PM EST 07/23/2024 12:50 PM EST us Lencho Stuart MD LAB BLOOD BANK TEST ORDERABL ES Final Result Performing Organization Address [facility]/ZIP Co de Phone Number [facility] [address] [place] [address], [place] [phone] * (ABNORMAL) POCT Glucose, blood (07/23/2024 12:12 PM EST) Glucose POCT 204(H) 70 - 100 mg/dL 07/23/2024 12:13 PM EST [facility] Blood Capillary blood specimen / Unknown 07/23/2024 12:12 PM EST 07/23/2024 12:14 PM EST us Lencho Stuart MD LAB POINT OF CARE TE ST DOCKED DEVICE UNSOLICITED RESULTS Final Result [facility] [address] [place] [address], [place] [phone] * Prepare RBC: 1 Units (07/23/2024 11:14 AM EST) Product Code [id number] 07/23/2024 3:38 PM EST [facility] Unit Number [id number] 07/23/19 3:38 PM EST [facility] Crossmatch Compatible 07/23/2024 2:36 PM EST [facility] Dispense Status Transfused 07/23/2024 3:38 PM [facility] Unit ABO Rh OPOS 07/23/2024 3:38 PM [facility] Unit Expiration Date Time [id number] 07/23/2024 3:38 PM EST [facility] Unit Blood Type 5100 07/23/2024 3:38 PM [facility] Blood Venous blood specimen / Unknown 07/23/2024 11:14 AM EST 07/23/2024 12:50 PM EST Lencho Stuart MD BLOOD BANK PRODUCT ORDERABLE S Final Result [facility] [address] [place] [address], [place] [phone] * (ABNORMAL) Heparin and low molecular weight anti Xa level (07/23/2024 8:40 AM EST) Heparin Anti-Xa 0.77(H) 0.30 - 0.70 I Unit/mL LAB COAGULATION METHOD 07/23/2024 9:05 AM [facility] Blood Venous blood specimen / Unknown Venipuncture / Unknown 07/23/2024 8:40 AM EST 07/23/2024 8:47 AM EST [facility] - 07/23/2024 9:05 AM EST Therapeutic range listed is for Unfractionated Heparin. LMW Heparin therapeutic range: 0.50-1.20 IU/mL [facility] LAB BLOOD ORDERABLES Final R esult [facility] [address] [place] [address], * (ABNORMAL) CBC auto differential (07/23/2024 5:44 AM EST) WBC 11.6(H) 4.8 - 10.8 K/mcL LAB HEMETOLOGY METHOD 07/23/2024 7:10 AM [facility] RBC 2.80(L) 3.80 - 4.80 M/mcL LAB HEMETOLOGY METHOD 07/23/2024 7:10 AM [facility] Hemoglobin 6.9(L) 11.5 - 16.0 g/dL LAB HEMETOLOGY METHOD 07/23/2024 7:10 AM [facility] Hematocrit 23.0(L) 35.0 - 47.0 % LAB HEMETOLOGY METHOD 07/23/2024 7:10 AM [facility] MCV 81.6 79.0 - 98.0 FL LAB HEMETOLOGY METHOD 07/23/2024 7:10 AM [facility] MCH 24.5(L) 27.0 - 32.0 pcg LAB HEMETOLOGY METHOD 07/23/2024 7:10 AM [facility] MCHC 30.0(L) 32.0 - 37.0 g/dL LAB HEMETOLOGY METHOD 07/23/2024 7:10 AM [facility] RDW 23.3(H) 11.0 - 15.0 % LAB HEMETOLOGY METHOD 07/23/2024 7:10 AM [facility] Platelets 206 130 - 400 K/mcL LAB HEMETOLOGY METHOD 07/23/2024 7:10 AM [facility] MPV 10.5 7.0 - 11.0 FL LAB HEMETOLOGY METHOD 07/23/2024 7:10 AM [facility] NRBC 0.0 <1.0 % LAB HEMETOLOGY METHOD 07/23/2024 7:10 AM [facility] NRBC Absolute 0.00 <0.10 K/mcL LAB HEMETOLOGY METHOD 07/23/2024 7:10 AM [facility] Neutrophils Relative 90.8 % LAB HEMETOLOGY METHOD 07/23/2024 7:10 AM [facility] Lymphocytes Relative 3.4 % LAB HEMETOLOGY METHOD 07/23/2024 7:10 AM [facility] Monocytes Relative 5.0 % LAB HEMETOLOGY METHOD 07/23/2024 7:10 AM [facility] Eosinophils Relative 0.0 % LAB HEMETOLOGY METHOD 07/23/2024 7:10 AM [facility] Basophils Relative 0.1 % LAB HEMETOLOGY METHOD 07/23/2024 7:10 AM [facility] Immature Granulocytes Relative 0.7 % LAB HEMETOLOGY METHOD 07/23/2024 7:10 AM [facility] Neutrophils Absolute 10.52(H) 1.50 - 7.00 K/mcL LAB HEMETOLOGY METHOD 07/23/2024 7:10 AM [facility] Lymphocytes Absolute 0.39(L) 1.00 - 5.00 K/mcL LAB HEMETOLOGY METHOD 07/23/2024 7:10 AM [facility] Monocytes Absolute 0.58 0.20 - 1.00 K/mcL LAB HEMETOLOGY METHOD 07/23/2024 7:10 AM EST [facility] Eosinophils Absolute 0.00 0.00 - 0.50 K/[facility] LAB HEMETOLOGY METHOD 07/23/2024 7:10 AM EST [facility] Basophils Absolute 0.01 0.00 - 0.20 K/[facility] LAB HEMETOLOGY METHOD 07/23/2024 7:10 AM EST [facility] Immature Granulocytes Absolute 0.08(H) 0.00 - 0.03 K/[facility] LAB HEMETOLOGY METHOD 07/23/2024 7:10 AM [facility] Blood Venous blood specimen / Unknown Venipuncture / Unknown 07/23/2024 5:44 AM EST 07/23/2024 6:50 AM EST Estdimas Stuart MD LAB BLOOD ORDERABLES Final R esult [facility] [address] [place] [address], * (ABNORMAL) Basic metabolic panel (07/23/2024 5:44 AM EST) Sodium 130(L) 133 - 145 mmol/L LAB CHEMISTRY METHOD 07/23/2024 8:36 AM [facility] Potassium 5.5 3.5 - 5.5 mmol/L LAB CHEMISTRY METHOD 07/23/2024 8:36 AM [facility] Chloride 92(L) 96 - 110 mmol/L LAB CHEMISTRY METHOD 07/23/2024 8:36 AM EST [facility] CO2 29 21 - 32 mmol/L LAB CHEMISTRY METHOD 07/23/2024 8:36 AM [facility] Anion Gap 9 3 - 11 LAB CHEMISTRY METHOD 07/23/2024 8:36 AM [facility] Glucose 378(H) 70 - 100 mg/dL LAB CHEMISTRY METHOD 07/23/2024 8:36 AM [facility] BUN 76(H) 5 - 25 mg/dL LAB CHEMISTRY METHOD 07/23/2024 8:36 AM [facility] Creatinine 4.16(H) 0.50 - 1.10 mg/dL LAB CHEMISTRY METHOD 07/23/2024 8:36 AM [facility] eGFR 10(L) >=60 mL/min/1. 73m2 LAB CHEMISTRY METHOD 07/23/2024 8:36 AM [facility] Comment:Calculation based on the??Chronic Kidney Disease Epidemiology Collaboration (CKD-EPI) equation refit??without adjustment for race. BUN/Creatinine Ratio 18.3 LAB CHEMISTRY METHOD 07/23/2024 8:36 AM [facility] Calcium 7.9(L) 8.5 - 10.5 mg/dL LAB CHEMISTRY METHOD 07/23/2024 8:36 AM [facility] Blood Venous blood specimen / Unknown Venipuncture / Unknown 07/23/2024 5:44 AM EST 07/23/2024 6:50 AM EST Estdimas Stuart MD LAB BLOOD ORDERABLES Final R esult [facility] [address] [place] [address], * (ABNORMAL) Heparin and low molecular weight anti Xa level (07/23/2024 2:05 AM EST) Heparin Anti-Xa 0.87(H) 0.30 - 0.70 I Unit/mL LAB COAGULATION METHOD 07/23/2024 2:20 AM [facility] Blood Venous blood specimen / Unknown Venipuncture / Unknown 07/23/2024 2:05 AM EST 07/23/2024 2:10 AM EST Narrative [facility] - 07/23/2024 2:20 AM EST Therapeutic range listed is for Unfractionated Heparin. LMW Heparin therapeutic range: 0.50-1.20 IU/mL Lencho Stuart MD LAB BLOOD ORDERABLES Final R esult Performing Organization Address [facility]/ZIP Co de Phone Number [facility] [address] [place] [address], [place] [phone] * (ABNORMAL) POCT Glucose, blood (07/22/2024 8:10 PM EST) Glucose POCT 304(H) 70 - 100 mg/dL 07/22/2024 8:10 PM EST [facility] Blood Capillary blood specimen / Unknown 07/22/2024 8:10 PM EST 07/22/2024 8:11 PM EST Lencho Stuart MD LAB POINT OF CARE TE ST DOCKED DEVICE UNSOLICITED RESULTS Final Result Performing Organization Address [facility] de Phone Number [facility] [address] [place] [address], [place] [phone] * (ABNORMAL) Hemoglobin and hematocrit (07/22/2024 6:40 PM EST) Hemoglobin 7.1(L) 11.5 - 16.0 g/dL LAB HEMETOLOGY METHOD 07/22/2024 7:24 PM EST [facility] Hematocrit 23.3(L) 35.0 - 47.0 % LAB HEMETOLOGY METHOD 07/22/2024 7:24 PM EST [facility] Blood Venous blood specimen / Unknown Venipuncture / Unknown 07/22/2024 6:40 PM EST 07/22/2024 7:20 PM EST Fela Palomo MD LAB BLOOD ORDERABLES Final Resu lt [facility] [address] [place] [address], [place] [phone] * (ABNORMAL) POCT Glucose, blood (07/22/2024 4:10 PM EST) Glucose POCT 267(H) 70 - 100 mg/dL 07/22/2024 4:11 PM EST [facility] Blood Capillary blood specimen / Unknown 07/22/2024 4:10 PM EST 07/22/2024 4:12 PM EST [facility] LAB POINT OF CARE TE ST DOCKED DEVICE UNSOLICITED RESULTS Final Result Performing Organization Address [facility]/State/[facility] Co de Phone Number [facility] [address] [place] [address], [place] [phone] * IR Bx Ndl Renal Perc Left (07/22/2024 3:53 PM EST) Anatomical Region Laterality Modality Kidney Left Interventional R adiology 07/22/2024 4:58 PM EST Impressions 07/22/2024 5:[address]-guided random core renal biopsy using coaxial technique. -------- FINAL REPORT -------- Dictated By: Fela Palomo Dictated Date: 07/22/2024 16:58 ET Assigned Physician: Fela Palomo Reviewed and Electronically Signed By: Fela Palomo Signed Date: 07/22/2024 17:00 ET Workstation ID: [id number] Transcribed By: Self Edit Transcribed Date: 07/22/2024 16:58 ET Narrative 07/22/2024 5:00 PM EST INDICATION: Acute renal failure PROCEDURE: Consent obtained for CT guided random core renal biopsy under conscious sedation. prior relevant studies: PET/CT from May 03, 2024 MEDICATIONS: Local anesthesia: 8 cc of 1% buffered lidocaine administered subcutaneously. Sedation: Moderate intravenous sedation was initiated and maintained for 30 minutes while the patient was independently monitored by the radiology nurse under the supervision of the interventional radiologist. A total of 1.5 mg of Versed and 50 mcg of fentanyl administered during the procedure. Scanner: [id number] Brightspeed [address] Dose reduction technique: AEC (automated exposure control) Dose: total exam DLP 373 mGY per cm ? TECHNIQUE: Patient placed prone on the CT table and multiple axial images obtained through the kidneys. Appropriate area the skin overlying the left kidney was marked, draped and prepped using maximum sterile barrier. Moderate sedation initiated with administration of local anesthetic. Under CT fluoroscopic guidance a 17-gauge coaxial needle was advanced into the periphery of the localized kidney. 3 18-gauge core biopsy samples obtained. Gelfoam slurry was injected through the coaxial needle along the perinephric space. FINDINGS: Initial limited CT images of the abdomen demonstrate normal-sized kidneys bilaterally. Left lower pole localized for biopsy. Images obtained during localization and needle positioning demonstrate coaxial needle positioned within the periphery of the localized kidney. Images obtained after biopsy demonstrate no significant postbiopsy hemorrhage. Gelfoam slurry noted along the liver capsule at site of needle insertion. SPECIMENS: Core biopsy samples placed in sterile saline and sent to the pathology department. Procedure Note Fela Palomo MD - 07/22/2024 INDICATION: Acute renal failure PROCEDURE: Consent obtained for CT guided random core renal biopsy underconscious sedation. prior relevant studies: PET/CT from May 03, 2024 MEDICATIONS: Local anesthesia: 8 cc of 1% buffered lidocaine administeredsubcutaneously. Sedation: Moderate intravenous sedation was initiated and maintained for30 minutes while the patient was independently monitored by the radiologynurse under the supervision of the interventional radiologist. A total of1.5 mg of Versed and 50 mcg of fentanyl administered during the procedure. Scanner: [id number] Brightspeed [address] Dose reduction technique: AEC (automated exposure control) Dose: total exam DLP 373 mGY per cm TECHNIQUE: Patient placed prone on the CT table and multiple axial imagesobtained through the kidneys. Appropriate area the skin overlying the leftkidney was marked, draped and prepped using maximum sterile barrier.Moderate sedation initiated with administration of local anesthetic. UnderCT fluoroscopic guidance a 17-gauge coaxial needle was advanced into theperiphery of the localized kidney. 3 18-gauge core biopsy samplesobtained. Gelfoam slurry was injected through the coaxial needle along theperinephric space. FINDINGS: Initial limited CT images of the abdomen demonstratenormal-sized kidneys bilaterally. Left lower pole localized for biopsy. Images obtained during localization and needle positioning demonstratecoaxial needle positioned within the periphery of the localized kidney. Images obtained after biopsy demonstrate no significant postbiopsyhemorrhage. Gelfoam slurry noted along the liver capsule at site of needleinsertion. SPECIMENS: Core biopsy samples placed in sterile saline and sent to thepathology department. IMPRESSION: CT-guided random core renal biopsy using coaxial technique. -------- FINAL REPORT -------- Dictated By: Fela Palomo Dictated Date: 07/22/2024 16:58 ET Assigned Physician: Fela Palomo Reviewed and Electronically Signed By: Fela Palomo Signed Date: 07/22/2024 17:00 ET Workstation ID: [id number] Transcribed By: Self Edit Transcribed Date: 07/22/2024 16:58 ET Miguel Quiles MD IMG IR PROCEDURES Final Result * (ABNORMAL) Prothrombin time with INR (07/22/2024 11:00 AM EST) Protime 16.3(H) 10.6 - 13.9 sec LAB COAGULATION METHOD 07/22/2024 1:11 PM EST [facility] INR 1.3 LAB COAGULATION METHOD 07/22/2024 1:11 PM EST [facility] Blood Venous blood specimen / Unknown Venipuncture / Unknown 07/22/2024 11:00 AM EST 07/22/2024 11:22 AM EST Lencho Stuart MD LAB BLOOD ORDERABLES Final R esult [facility] [address] [place] [address], [place] [phone] * (ABNORMAL) Anti-Xa - Every 6 Hours (07/22/2024 11:00 AM EST) Heparin Anti-Xa <0.04(L) 0.30 - 0.70 I Unit/mL LAB COAGULATION METHOD 07/22/2024 12:11 PM EST [facility] Blood Venous blood specimen / Unknown Venipuncture / Unknown 07/22/2024 11:00 AM EST 07/22/2024 11:22 AM EST Narrative [facility] - 07/22/2024 12:11 PM EST Therapeutic range listed is for Unfractionated Heparin. LMW Heparin therapeutic range: 0.50-1.20 IU/mL us Lencho Stuart MD LAB BLOOD ORDERABLES Final R esult Performing Organization Address [facility]/ZIP Co de Phone Number [facility] [address] [place] [address], [place] [phone] * Lavender tube (07/22/2024 10:53 AM EST) Extra Tube Hold for add-ons. 07/22/2024 1:01 PM EST [facility] Comment:Auto resulted. Blood Venous blood specimen / Unknown 07/22/2024 10:53 AM EST 07/22/2024 11:25 AM EST us Lencho Stuart MD LAB BLOOD ORDERABLES Final R esult [facility] [address] [place] [address], [place] [phone] * SST tube (07/22/2024 10:53 AM EST) Extra Tube Hold for add-ons. 07/22/2024 1:01 PM EST [facility] Comment:Auto resulted. Blood Venous blood specimen / Unknown 07/22/2024 10:53 AM EST 07/22/2024 11:25 AM EST us Lencho Stuart MD LAB BLOOD ORDERABLES Final R esult Performing Organization Address [facility]/ZIP Co de Phone Number [facility] [address] [place] [address], [place] [phone] * (ABNORMAL) POCT Glucose, blood (07/22/2024 10:48 AM EST) Glucose POCT 280(H) 70 - 100 mg/dL 07/22/2024 11:08 AM EST [facility] Blood Capillary blood specimen / Unknown 07/22/2024 10:48 AM EST 07/22/2024 11:09 AM EST us Lencho Stuart MD LAB POINT OF CARE TE ST DOCKED DEVICE UNSOLICITED RESULTS Final Result Performing Organization Address [facility] Co de Phone Number [facility] [address] [place] [address], [place] [phone] * (ABNORMAL) POCT Glucose, blood (07/22/2024 8:10 AM EST) Glucose POCT 300(H) 70 - 100 mg/dL 07/22/2024 8:11 AM EST [facility] Blood Capillary blood specimen / Unknown 07/22/2024 8:10 AM EST 07/22/2024 8:13 AM EST us Lencho Stuart MD LAB POINT OF CARE TE ST DOCKED DEVICE UNSOLICITED RESULTS Final Result Performing Organization Address City/[facility]/ZIP Co de Phone Number [facility] [address] [place] [address], [place] [phone] * (ABNORMAL) POCT Glucose, blood (07/22/2024 3:43 AM EST) Glucose POCT 276(H) 70 - 100 mg/dL 07/22/2024 3:44 AM [facility] Blood Capillary blood specimen / Unknown 07/22/2024 3:43 AM EST 07/22/2024 3:45 AM EST [facility] POINT OF CARE TE ST DOCKED DEVICE UNSOLICITED RESULTS Final Result [facility] [address] [place] [address], * (ABNORMAL) CBC auto differential (07/22/2024 3:11 AM EST) Pathologist [facility] [place] WBC 9.6 4.8 - 10.8 K/mcL LAB HEMETOLOGY METHOD 07/22/2024 3:32 AM [facility] RBC 3.00(L) 3.80 - 4.80 M/mcL LAB HEMETOLOGY METHOD 07/22/2024 3:32 AM [facility] Hemoglobin 7.2(L) 11.5 - 16.0 g/dL LAB HEMETOLOGY METHOD 07/22/2024 3:32 AM [facility] Hematocrit 24.3(L) 35.0 - 47.0 % LAB HEMETOLOGY METHOD 07/22/2024 3:32 AM [facility] MCV 80.5 79.0 - 98.0 FL LAB HEMETOLOGY METHOD 07/22/2024 3:32 AM [facility] MCH 23.8(L) 27.0 - 32.0 pcg LAB HEMETOLOGY METHOD 07/22/2024 3:32 AM [facility] MCHC 29.6(L) 32.0 - 37.0 g/dL LAB HEMETOLOGY METHOD 07/22/2024 3:32 AM [facility] RDW 23.6(H) 11.0 - 15.0 % LAB HEMETOLOGY METHOD 07/22/2024 3:32 AM [facility] Platelets 169 130 - 400 K/mcL LAB HEMETOLOGY METHOD 07/22/2024 3:32 AM [facility] MPV 9.7 7.0 - 11.0 FL LAB HEMETOLOGY METHOD 07/22/2024 3:32 AM [facility] NRBC 0.0 <1.0 % LAB HEMETOLOGY METHOD 07/22/2024 3:32 AM [facility] NRBC Absolute 0.00 <0.10 K/mcL LAB HEMETOLOGY METHOD 07/22/2024 3:32 AM [facility] Neutrophils Relative 95.2 % LAB HEMETOLOGY METHOD 07/22/2024 3:32 AM [facility] Lymphocytes Relative 3.3 % LAB HEMETOLOGY METHOD 07/22/2024 3:32 AM [facility] Monocytes Relative 0.7 % LAB HEMETOLOGY METHOD 07/22/2024 3:32 AM [facility] Eosinophils Relative 0.0 % LAB HEMETOLOGY METHOD 07/22/2024 3:32 AM [facility] Basophils Relative 0.1 % LAB HEMETOLOGY METHOD 07/22/2024 3:32 AM [facility] Immature Granulocytes Relative 0.7 % LAB HEMETOLOGY METHOD 07/22/2024 3:32 AM [facility] Neutrophils Absolute 9.13(H) 1.50 - 7.00 K/mcL LAB HEMETOLOGY METHOD 07/22/2024 3:32 AM [facility] Lymphocytes Absolute 0.32(L) 1.00 - 5.00 K/mcL LAB HEMETOLOGY METHOD 07/22/2024 3:32 AM [facility] Monocytes Absolute 0.07(L) 0.20 - 1.00 K/mcL LAB HEMETOLOGY METHOD 07/22/2024 3:32 AM EST [facility] Eosinophils Absolute 0.00 0.00 - 0.50 K/[facility] LAB HEMETOLOGY METHOD 07/22/2024 3:32 AM [facility] Basophils Absolute 0.01 0.00 - 0.20 K/[facility] LAB HEMETOLOGY METHOD 07/22/2024 3:32 AM EST [facility] Immature Granulocytes Absolute 0.07(H) 0.00 - 0.03 K/[facility] LAB HEMETOLOGY METHOD 07/22/2024 3:32 AM [facility] Blood Venous blood specimen / Unknown Venipuncture / Unknown 07/22/2024 3:11 AM EST 07/22/2024 3:23 AM EST [facility] LAB BLOOD ORDERABLES Final R esult [facility] [address] [place] [address], * (ABNORMAL) Basic metabolic panel (07/22/2024 3:11 AM EST) Sodium 132(L) 133 - 145 mmol/L LAB CHEMISTRY METHOD 07/22/2024 4:20 AM [facility] Potassium 5.0 3.5 - 5.5 mmol/L LAB CHEMISTRY METHOD 07/22/2024 4:20 AM [facility] Chloride 95(L) 96 - 110 mmol/L LAB CHEMISTRY METHOD 07/22/2024 4:20 AM [facility] CO2 27 21 - 32 mmol/L LAB CHEMISTRY METHOD 07/22/2024 4:20 AM [facility] Anion Gap 10 3 - 11 LAB CHEMISTRY METHOD 07/22/2024 4:20 AM [facility] Glucose 264(H) 70 - 100 mg/dL LAB CHEMISTRY METHOD 07/22/2024 4:20 AM [facility] BUN 40(H) 5 - 25 mg/dL LAB CHEMISTRY METHOD 07/22/2024 4:20 AM [facility] Creatinine 2.87(H) 0.50 - 1.10 mg/dL LAB CHEMISTRY METHOD 07/22/2024 4:20 AM [facility] eGFR 16(L) >=60 mL/min/1. 73m2 LAB CHEMISTRY METHOD 07/22/2024 4:20 AM [facility] Comment:Calculation based on the??Chronic Kidney Disease Epidemiology Collaboration (CKD-EPI) equation refit??without adjustment for race. BUN/Creatinine Ratio 13.9 LAB CHEMISTRY METHOD 07/22/2024 4:20 AM [facility] Calcium 7.4(L) 8.5 - 10.5 mg/dL LAB CHEMISTRY METHOD 07/22/2024 4:20 AM [facility] Blood Venous blood specimen / Unknown Venipuncture / Unknown 07/22/2024 3:11 AM EST 07/22/2024 4:20 AM EST Lencho Stuart MD LAB BLOOD ORDERABLES Final R esult [facility] [address] [place] [address], * (ABNORMAL) Anti-Xa - Every 6 Hours (07/22/2024 3:09 AM EST) Heparin Anti-Xa 0.26(L) 0.30 - 0.70 I Unit/mL LAB COAGULATION METHOD 07/22/2024 3:33 AM [facility] Blood Venous blood specimen / Unknown Venipuncture / Unknown 07/22/2024 3:09 AM EST 07/22/2024 3:23 AM EST [facility] - 07/22/2024 3:33 AM EST Therapeutic range listed is for Unfractionated Heparin. LMW Heparin therapeutic range: 0.50-1.20 IU/mL us Lencho Stuart MD LAB BLOOD ORDERABLES Final R esult Performing Organization Address [facility]/ZIP Co de Phone Number [facility] [address] [place] [address], [place] [phone] * (ABNORMAL) POCT Glucose, blood (07/21/2024 8:10 PM EST) Glucose POCT 172(H) 70 - 100 mg/dL 07/21/2024 8:11 PM EST [facility] Blood Capillary blood specimen / Unknown 07/21/2024 8:10 PM EST 07/21/2024 8:12 PM EST us Lencho Stuart MD LAB POINT OF CARE TE ST DOCKED DEVICE UNSOLICITED RESULTS Final Result Performing Organization Address [facility] Administration/[facility] Co de Phone Number [facility] [address] [place] [address], [place] [phone] * (ABNORMAL) Heparin and low molecular weight anti Xa level (07/21/2024 8:02 PM EST) Heparin Anti-Xa 0.27(L) 0.30 - 0.70 I Unit/mL LAB COAGULATION METHOD 07/21/2024 8:37 PM EST [facility] Blood Venous blood specimen / Unknown Venipuncture / Unknown 07/21/2024 8:02 PM EST 07/21/2024 8:26 PM EST Narrative [facility] - 07/21/2024 8:37 PM EST Therapeutic range listed is for Unfractionated Heparin. LMW Heparin therapeutic range: 0.50-1.20 IU/mL us Lencho Stuart MD LAB BLOOD ORDERABLES Final R esult Performing Organization Address City/[facility]/ZIP Co de Phone Number [facility] [address] [place] [address], [place] [phone] * (ABNORMAL) POCT Glucose, blood (07/21/2024 5:04 PM EST) Glucose POCT 175(H) 70 - 100 mg/dL 07/21/2024 5:05 PM EST [facility] Blood Capillary blood specimen / Unknown 07/21/2024 5:04 PM EST 07/21/2024 5:06 PM EST us Lencho Stuart MD LAB POINT OF CARE TE ST DOCKED DEVICE UNSOLICITED RESULTS Final Result Performing Organization Address [facility]/ZIP Co de Phone Number [facility] [address] [place] [address], [place] [phone] * POCT Glucose, blood (07/21/2024 1:57 PM EST) Glucose POCT 96 70 - 100 mg/dL 07/21/2024 1:58 PM EST [facility] Blood Capillary blood specimen / Unknown 07/21/2024 1:57 PM EST 07/21/2024 1:59 PM EST us Lencho Stuart MD LAB POINT OF CARE TE ST DOCKED DEVICE UNSOLICITED RESULTS Final Result [facility] [address] [place] [address], [place] [phone] * (ABNORMAL) Complete blood count (07/21/2024 8:55 AM EST) WBC 18.9(H) 4.8 - 10.8 K/[facility] LAB HEMETOLOGY METHOD 07/21/2024 9:21 AM EST [facility] RBC 3.00(L) 3.80 - 4.80 M/mcL LAB HEMETOLOGY METHOD 07/21/2024 9:21 AM [facility] Hemoglobin 7.3(L) 11.5 - 16.0 g/dL LAB HEMETOLOGY METHOD 07/21/2024 9:21 AM [facility] Hematocrit 23.7(L) 35.0 - 47.0 % LAB HEMETOLOGY METHOD 07/21/2024 9:21 AM [facility] MCV 80.3 79.0 - 98.0 FL LAB HEMETOLOGY METHOD 07/21/2024 9:21 AM [facility] MCH 24.7(L) 27.0 - 32.0 pcg LAB HEMETOLOGY METHOD 07/21/2024 9:21 AM [facility] MCHC 30.8(L) 32.0 - 37.0 g/dL LAB HEMETOLOGY METHOD 07/21/2024 9:21 AM [facility] RDW 23.7(H) 11.0 - 15.0 % LAB HEMETOLOGY METHOD 07/21/2024 9:21 AM [facility] Platelets 195 130 - 400 K/mcL LAB HEMETOLOGY METHOD 07/21/2024 9:21 AM [facility] MPV 10.2 7.0 - 11.0 FL LAB HEMETOLOGY METHOD 07/21/2024 9:21 AM [facility] NRBC 0.0 <1.0 % LAB HEMETOLOGY METHOD 07/21/2024 9:21 AM [facility] NRBC Absolute 0.00 <0.10 K/mcL LAB HEMETOLOGY METHOD 07/21/2024 9:21 AM [facility] Blood Venous blood specimen / Unknown Venipuncture / Unknown 07/21/2024 8:55 AM EST 07/21/2024 9:11 AM EST Lencho Stuart MD LAB BLOOD ORDERABLES Final R esult [facility] [address] [place] [address], * (ABNORMAL) Basic metabolic panel (07/21/2024 8:55 AM EST) Sodium 130(L) 133 - 145 mmol/L LAB CHEMISTRY METHOD 07/21/2024 9:50 AM EST [facility] Potassium 4.8 3.5 - 5.5 mmol/L LAB CHEMISTRY METHOD 07/21/2024 9:50 AM [facility] Chloride 92(L) 96 - 110 mmol/L LAB CHEMISTRY METHOD 07/21/2024 9:50 AM [facility] CO2 29 21 - 32 mmol/L LAB CHEMISTRY METHOD 07/21/2024 9:50 AM EST [facility] Anion Gap 9 3 - 11 LAB CHEMISTRY METHOD 07/21/2024 9:50 AM [facility] Glucose 142(H) 70 - 100 mg/dL LAB CHEMISTRY METHOD 07/21/2024 9:50 AM [facility] BUN 63(H) 5 - 25 mg/dL LAB CHEMISTRY METHOD 07/21/2024 9:50 AM [facility] Creatinine 5.05(H) 0.50 - 1.10 mg/dL LAB CHEMISTRY METHOD 07/21/2024 9:50 AM [facility] eGFR 8(L) >=60 mL/min/1. 73m2 LAB CHEMISTRY METHOD 07/21/2024 9:50 AM [facility] Comment:Calculation based on the??Chronic Kidney Disease Epidemiology Collaboration (CKD-EPI) equation refit??without adjustment for race. BUN/Creatinine Ratio 12.5 LAB CHEMISTRY METHOD 07/21/2024 9:50 AM [facility] Calcium 7.6(L) 8.5 - 10.5 mg/dL LAB CHEMISTRY METHOD 07/21/2024 9:50 AM EST [facility] Blood Venous blood specimen / Unknown Venipuncture / Unknown 07/21/2024 8:55 AM EST 07/21/2024 9:10 AM EST us Lencho Stuart MD LAB BLOOD ORDERABLES Final R esult Performing Organization Address City/[facility]/ZIP Co de Phone Number [facility] [address] [place] [address], [place] [phone] * (ABNORMAL) POCT Glucose, blood (07/21/2024 8:03 AM EST) Glucose POCT 159(H) 70 - 100 mg/dL 07/21/2024 8:04 AM EST [facility] Blood Capillary blood specimen / Unknown 07/21/2024 8:03 AM EST 07/21/2024 8:05 AM EST us Lencho Stuart MD LAB POINT OF CARE TE ST DOCKED DEVICE UNSOLICITED RESULTS Final Result Performing Organization Address [facility] Co de Phone Number [facility] [address] [place] [address], [place] [phone] * SST tube (07/21/2024 5:41 AM EST) Extra Tube Hold for add-ons. 07/21/2024 9:01 AM EST [facility] Comment:Auto resulted. Blood Venous blood specimen / Unknown 07/21/2024 5:41 AM EST 07/21/2024 7:02 AM EST us Lencho Stuart MD LAB BLOOD ORDERABLES Final R esult Performing Organization Address City/[facility]/ZIP Co de Phone Number [facility] [address] [place] [address], [place] [phone] * (ABNORMAL) CBC - Every 3 Days (07/21/2024 5:12 AM EST) [facility] WBC 18.8(H) 4.8 - 10.8 K/mcL LAB HEMETOLOGY METHOD 07/21/2024 7:22 AM [facility] RBC 2.90(L) 3.80 - 4.80 M/mcL LAB HEMETOLOGY METHOD 07/21/2024 7:22 AM [facility] Hemoglobin 7.3(L) 11.5 - 16.0 g/dL LAB HEMETOLOGY METHOD 07/21/2024 7:22 AM [facility] Hematocrit 23.6(L) 35.0 - 47.0 % LAB HEMETOLOGY METHOD 07/21/2024 7:22 AM [facility] MCV 81.1 79.0 - 98.0 FL LAB HEMETOLOGY METHOD 07/21/2024 7:22 AM [facility] MCH 25.1(L) 27.0 - 32.0 pcg LAB HEMETOLOGY METHOD 07/21/2024 7:22 AM [facility] MCHC 30.9(L) 32.0 - 37.0 g/dL LAB HEMETOLOGY METHOD 07/21/2024 7:22 AM [facility] RDW 23.7(H) 11.0 - 15.0 % LAB HEMETOLOGY METHOD 07/21/2024 7:22 AM [facility] Platelets 200 130 - 400 K/mcL LAB HEMETOLOGY METHOD 07/21/2024 7:22 AM [facility] MPV 10.5 7.0 - 11.0 FL LAB HEMETOLOGY METHOD 07/21/2024 7:22 AM [facility] NRBC 0.0 <1.0 % LAB HEMETOLOGY METHOD 07/21/2024 7:22 AM EST [facility] NRBC Absolute 0.00 <0.10 K/[facility] LAB HEMETOLOGY METHOD 07/21/2024 7:22 AM EST [facility] Blood Venous blood specimen / Unknown Venipuncture / Unknown 07/21/2024 5:12 AM EST 07/21/2024 6:58 AM EST us Lencho Stuart MD LAB BLOOD ORDERABLES Final R esult Performing Organization Address [facility] Co de Phone Number [facility] [address] [place] [address], [place] [phone] * (ABNORMAL) POCT Glucose, blood (07/21/2024 2:47 AM EST) Glucose POCT 144(H) 70 - 100 mg/dL 07/21/2024 2:48 AM EST [facility] Blood Capillary blood specimen / Unknown 07/21/2024 2:47 AM EST 07/21/2024 2:49 AM EST us Lencho Stuart MD LAB POINT OF CARE TE ST DOCKED DEVICE UNSOLICITED RESULTS Final Result Performing Organization Address [facility] Co de Phone Number [facility] [address] [place] [address], [place] [phone] * (ABNORMAL) POCT Glucose, blood (07/20/2024 8:11 PM EST) Glucose POCT 140(H) 70 - 100 mg/dL 07/20/2024 8:12 PM EST [facility] Blood Capillary blood specimen / Unknown 07/20/2024 8:11 PM EST 07/20/2024 8:13 PM EST us Lencho Stuart MD LAB POINT OF CARE TE ST DOCKED DEVICE UNSOLICITED RESULTS Final Result Performing Organization Address City/[facility]/ZIP Co de Phone Number [facility] [address] [place] [address], [place] [phone] * (ABNORMAL) Anti-Xa - Every 6 Hours (07/20/2024 7:45 PM EST) Heparin Anti-Xa <0.04(L) 0.30 - 0.70 I Unit/mL LAB COAGULATION METHOD 07/20/2024 9:02 PM EST [facility] Blood Venous blood specimen / Unknown Venipuncture / Unknown 07/20/2024 7:45 PM EST 07/20/2024 8:01 PM EST Narrative [facility] - 07/20/2024 9:02 PM EST Therapeutic range listed is for Unfractionated Heparin. LMW Heparin therapeutic range: 0.50-1.20 IU/mL us Lencho Stuart MD LAB BLOOD ORDERABLES Final R esult Performing Organization Address [facility]/ZIP Co de Phone Number [facility] [address] [place] [address], [place] [phone] * (ABNORMAL) POCT Glucose, blood (07/20/2024 4:21 PM EST) [facility] Glucose POCT 167(H) 70 - 100 mg/dL 07/20/2024 4:23 PM EST [facility] Blood Capillary blood specimen / Unknown 07/20/2024 4:21 PM EST 07/20/2024 4:24 PM EST us Lencho Stuart MD LAB POINT OF CARE TE ST DOCKED DEVICE UNSOLICITED RESULTS Final Result Performing Organization Address [facility]/ZIP Co de Phone Number [facility] [address] [place] [address], [place] [phone] * Activated Partial Thromboplastin Time - STAT (07/20/2024 2:30 PM EST) [facility] aPTT 30.0 24.1 - 39.3 sec LAB COAGULATION METHOD 07/20/2024 3:06 PM EST [facility] Blood Venous blood specimen / Unknown Venipuncture / Unknown 07/20/2024 2:30 PM EST 07/20/2024 2:52 PM EST us Lencho Stuart MD LAB BLOOD ORDERABLES Final R esult Performing Organization Address City/[facility]/ZIP Co de Phone Number [facility] [address] [place] [address], [place] [phone] * (ABNORMAL) Prothrombin Time with INR - STAT (07/20/2024 2:30 PM EST) [facility] Protime 17.6(H) 10.6 - 13.9 sec LAB COAGULATION METHOD 07/20/2024 3:06 PM EST [facility] INR 1.4 LAB COAGULATION METHOD 07/20/2024 3:06 PM EST [facility] Blood Venous blood specimen / Unknown Venipuncture / Unknown 07/20/2024 2:30 PM EST 07/20/2024 2:52 PM EST us Lencho Stuart MD LAB BLOOD ORDERABLES Final R esult Performing Organization Address City/[facility]/ZIP Co de Phone Number [facility] [address] [place] [address], [place] [phone] * (ABNORMAL) POCT Glucose, blood (07/20/2024 11:23 AM EST) [facility] Glucose POCT 139(H) 70 - 100 mg/dL 07/20/2024 11:24 AM EST [facility] Blood Capillary blood specimen / Unknown 07/20/2024 11:23 AM EST 07/20/2024 11:26 AM EST [facility] POINT OF CARE TE ST DOCKED DEVICE UNSOLICITED RESULTS Final Result [facility] [address] [place] [address], [place] [phone] * (ABNORMAL) POCT Glucose, blood (07/20/2024 8:20 AM EST) Pathologist [facility] [place] Glucose POCT 132(H) 70 - 100 mg/dL 07/20/2024 8:20 AM EST [facility] Blood Capillary blood specimen / Unknown 07/20/2024 8:20 AM EST 07/20/2024 8:21 AM EST [facility] POINT OF CARE TE ST DOCKED DEVICE UNSOLICITED RESULTS Final Result Performing Organization Address City/[facility]/ZIP Co de Phone Number [facility] [address] [place] [address], [place] [phone] * (ABNORMAL) CBC auto differential (07/20/2024 5:46 AM EST) [facility] WBC 20.9(H) 4.8 - 10.8 K/mcL LAB HEMETOLOGY METHOD 07/20/2024 7:07 AM [facility] RBC 3.00(L) 3.80 - 4.80 M/mcL LAB HEMETOLOGY METHOD 07/20/2024 7:07 AM [facility] Hemoglobin 7.3(L) 11.5 - 16.0 g/dL LAB HEMETOLOGY METHOD 07/20/2024 7:07 AM [facility] Hematocrit 23.6(L) 35.0 - 47.0 % LAB HEMETOLOGY METHOD 07/20/2024 7:07 AM [facility] MCV 77.9(L) 79.0 - 98.0 FL LAB HEMETOLOGY METHOD 07/20/2024 7:07 AM [facility] MCH 24.1(L) 27.0 - 32.0 pcg LAB HEMETOLOGY METHOD 07/20/2024 7:07 AM [facility] MCHC 30.9(L) 32.0 - 37.0 g/dL LAB HEMETOLOGY METHOD 07/20/2024 7:07 AM [facility] RDW 23.9(H) 11.0 - 15.0 % LAB HEMETOLOGY METHOD 07/20/2024 7:07 AM [facility] Platelets 217 130 - 400 K/mcL LAB HEMETOLOGY METHOD 07/20/2024 7:07 AM [facility] MPV 9.8 7.0 - 11.0 FL LAB HEMETOLOGY METHOD 07/20/2024 7:07 AM [facility] NRBC 0.0 <1.0 % LAB HEMETOLOGY METHOD 07/20/2024 7:07 AM [facility] NRBC Absolute 0.00 <0.10 K/mcL LAB HEMETOLOGY METHOD 07/20/2024 7:07 AM [facility] Neutrophils Relative 86.5 % LAB HEMETOLOGY METHOD 07/20/2024 7:07 AM [facility] Lymphocytes Relative 3.8 % LAB HEMETOLOGY METHOD 07/20/2024 7:07 AM [facility] Monocytes Relative 5.5 % LAB HEMETOLOGY METHOD 07/20/2024 7:07 AM [facility] Eosinophils Relative 2.7 % LAB HEMETOLOGY METHOD 07/20/2024 7:07 AM [facility] Basophils Relative 0.2 % LAB HEMETOLOGY METHOD 07/20/2024 7:07 AM [facility] Immature Granulocytes Relative 1.3 % LAB HEMETOLOGY METHOD 07/20/2024 7:07 AM EST [facility] Neutrophils Absolute 18.10(H) 1.50 - 7.00 K/mcL LAB HEMETOLOGY METHOD 07/20/2024 7:07 AM EST [facility] Lymphocytes Absolute 0.80(L) 1.00 - 5.00 K/mcL LAB HEMETOLOGY METHOD 07/20/2024 7:07 AM [facility] Monocytes Absolute 1.16(H) 0.20 - 1.00 K/mcL LAB HEMETOLOGY METHOD 07/20/2024 7:07 AM [facility] Eosinophils Absolute 0.56(H) 0.00 - 0.50 K/mcL LAB HEMETOLOGY METHOD 07/20/2024 7:07 AM [facility] Basophils Absolute 0.04 0.00 - 0.20 K/mcL LAB HEMETOLOGY METHOD 07/20/2024 7:07 AM [facility] Immature Granulocytes Absolute 0.27(H) 0.00 - 0.03 K/mcL LAB HEMETOLOGY METHOD 07/20/2024 7:07 AM [facility] Blood Venous blood specimen / Unknown Venipuncture / Unknown 07/20/2024 5:46 AM EST 07/20/2024 6:38 AM EST us [facility] BLOOD ORDERABLES Final R esult [facility] [address] [place] [address], * (ABNORMAL) CBC - Every 3 Days (07/20/2024 5:46 AM EST) WBC 20.9(H) 4.8 - 10.8 K/mcL LAB HEMETOLOGY METHOD 07/20/2024 7:07 AM EST [facility] RBC 3.00(L) 3.80 - 4.80 M/mcL LAB HEMETOLOGY METHOD 07/20/2024 7:07 AM [facility] Hemoglobin 7.3(L) 11.5 - 16.0 g/dL LAB HEMETOLOGY METHOD 07/20/2024 7:07 AM [facility] Hematocrit 23.6(L) 35.0 - 47.0 % LAB HEMETOLOGY METHOD 07/20/2024 7:07 AM [facility] MCV 77.9(L) 79.0 - 98.0 FL LAB HEMETOLOGY METHOD 07/20/2024 7:07 AM [facility] MCH 24.1(L) 27.0 - 32.0 pcg LAB HEMETOLOGY METHOD 07/20/2024 7:07 AM [facility] MCHC 30.9(L) 32.0 - 37.0 g/dL LAB HEMETOLOGY METHOD 07/20/2024 7:07 AM [facility] RDW 23.9(H) 11.0 - 15.0 % LAB HEMETOLOGY METHOD 07/20/2024 7:07 AM [facility] Platelets 217 130 - 400 K/mcL LAB HEMETOLOGY METHOD 07/20/2024 7:07 AM [facility] MPV 9.8 7.0 - 11.0 FL LAB HEMETOLOGY METHOD 07/20/2024 7:07 AM [facility] NRBC 0.0 <1.0 % LAB HEMETOLOGY METHOD 07/20/2024 7:07 AM [facility] NRBC Absolute 0.00 <0.10 K/mcL LAB HEMETOLOGY METHOD 07/20/2024 7:07 AM [facility] Blood Venous blood specimen / Unknown Venipuncture / Unknown 07/20/2024 5:46 AM EST 07/20/2024 6:38 AM EST Kwesi Guido MD LAB BLOOD ORDERABLES F inal Result [facility] [address] [place] [address], [place] [phone] * Heparin and low molecular weight anti Xa level (07/20/2024 5:46 AM EST) Pathologist [facility] [place] Heparin Anti-Xa 0.36 0.30 - 0.70 I Unit/mL LAB COAGULATION METHOD 07/20/2024 7:15 AM EST [facility] Blood Venous blood specimen / Unknown Venipuncture / Unknown 07/20/2024 5:46 AM EST 07/20/2024 6:40 AM EST Narrative [facility] - 07/20/2024 7:15 AM EST Therapeutic range listed is for Unfractionated Heparin. LMW Heparin therapeutic range: 0.50-1.20 IU/mL Lencho Stuart MD LAB BLOOD ORDERABLES Final R esult Performing Organization Address City/[facility]/ZIP Co de Phone Number [facility] [address] [place] [address], [place] [phone] * (ABNORMAL) Basic metabolic panel (07/20/2024 5:46 AM EST) Pathologist [facility] [place] Sodium 132(L) 133 - 145 mmol/L LAB CHEMISTRY METHOD 07/20/2024 8:03 AM [facility] Potassium 4.2 3.5 - 5.5 mmol/L LAB CHEMISTRY METHOD 07/20/2024 8:03 AM [facility] Chloride 95(L) 96 - 110 mmol/L LAB CHEMISTRY METHOD 07/20/2024 8:03 AM [facility] CO2 29 21 - 32 mmol/L LAB CHEMISTRY METHOD 07/20/2024 8:03 AM [facility] Anion Gap 8 3 - 11 LAB CHEMISTRY METHOD 07/20/2024 8:03 AM [facility] Glucose 113(H) 70 - 100 mg/dL LAB CHEMISTRY METHOD 07/20/2024 8:03 AM [facility] BUN 41(H) 5 - 25 mg/dL LAB CHEMISTRY METHOD 07/20/2024 8:03 AM [facility] Creatinine 3.68(H) 0.50 - 1.10 mg/dL LAB CHEMISTRY METHOD 07/20/2024 8:03 AM [facility] eGFR 12(L) >=60 mL/min/1. 73m2 LAB CHEMISTRY METHOD 07/20/2024 8:03 AM [facility] Comment:Calculation based on the??Chronic Kidney Disease Epidemiology Collaboration (CKD-EPI) equation refit??without adjustment for race. BUN/Creatinine Ratio 11.1 LAB CHEMISTRY METHOD 07/20/2024 8:03 AM [facility] Calcium 7.3(L) 8.5 - 10.5 mg/dL LAB CHEMISTRY METHOD 07/20/2024 8:03 AM [facility] Blood Venous blood specimen / Unknown Venipuncture / Unknown 07/20/2024 5:46 AM EST 07/20/2024 6:38 AM EST Estdimas Stuart MD LAB BLOOD ORDERABLES Final R esult [facility] [address] [place] [address], * (ABNORMAL) POCT Glucose, blood (07/19/2024 8:18 PM EST) Glucose POCT 146(H) 70 - 100 mg/dL 07/19/2024 8:18 PM [facility] Blood Capillary blood specimen / Unknown 07/19/2024 8:18 PM EST 07/19/2024 8:19 PM EST Lencho Stuart MD LAB POINT OF CARE TE ST DOCKED DEVICE UNSOLICITED RESULTS Final Result [facility] [address] [place] [address], [place] [phone] * (ABNORMAL) POCT Glucose, blood (07/19/2024 7:29 PM EST) Glucose POCT 152(H) 70 - 100 mg/dL 07/19/2024 7:30 PM EST [facility] Blood Capillary blood specimen / Unknown 07/19/2024 7:29 PM EST 07/19/2024 7:31 PM EST Lencho Stuart MD LAB POINT OF CARE TE ST DOCKED DEVICE UNSOLICITED RESULTS Final Result Performing Organization Address [facility]/ZIP Co de Phone Number [facility] [address] [place] [address], [place] [phone] * (ABNORMAL) POCT Glucose, blood (07/19/2024 4:01 PM EST) Glucose POCT 139(H) 70 - 100 mg/dL 07/19/2024 4:02 PM EST [facility] Blood Capillary blood specimen / Unknown 07/19/2024 4:01 PM EST 07/19/2024 4:03 PM EST Lencho Stuart MD LAB POINT OF CARE TE ST DOCKED DEVICE UNSOLICITED RESULTS Final Result [facility] [address] [place] [address], [place] [phone] * (ABNORMAL) Hemoglobin and hematocrit (07/19/2024 2:31 PM EST) Hemoglobin 7.6(L) 11.5 - 16.0 g/dL LAB HEMETOLOGY METHOD 07/19/2024 3:11 PM EST [facility] Hematocrit 23.8(L) 35.0 - 47.0 % LAB HEMETOLOGY METHOD 07/19/2024 3:11 PM [facility] Blood Venous blood specimen / Unknown Venipuncture / Unknown 07/19/2024 2:31 PM EST 07/19/2024 3:05 PM EST Lencho Stuart MD LAB BLOOD ORDERABLES Final R esult [facility] [address] [place] [address], [place] [phone] * Creatinine, urine, random (07/19/2024 12:01 PM EST) Creatinine, Urine 41.0 mg/dL LAB CHEMISTRY METHOD 07/19/2024 1:17 PM [facility] Urine Urine specimen obtained by clean catch procedure / Unknown Non-blood Collection / Unknown 07/19/2024 12:01 PM EST 07/19/2024 12:30 PM EST Miguel Quiles MD LAB URINE ORDERABLES Final Res ult [facility] [address] [place] [address], [place] [phone] * (ABNORMAL) Microalbumin creatinine urine ratio (07/19/2024 12:01 PM EST) Creatinine, Urine 41.0 mg/dL LAB CHEMISTRY METHOD 07/19/2024 1:46 PM [facility] Microalb, Ur 1,480.0(H ) 0.0 - 29.0 mg/L LAB CHEMISTRY METHOD 07/19/2024 1:46 PM [facility] Microalb/Crea t Ratio 3,610(H) <30 mg/g creat LAB CHEMISTRY METHOD 07/19/2024 1:46 PM EST [facility] Urine Urine specimen obtained by clean catch procedure / Unknown Non-blood Collection / Unknown 07/19/2024 12:01 PM EST 07/19/2024 12:30 PM EST us Miguel Quiles MD LAB URINE ORDERABLES Final Res ult Performing Organization Address [facility] Co de Phone Number [facility] [address] [place] [address], [place] [phone] * (ABNORMAL) POCT Glucose, blood (07/19/2024 11:32 AM EST) Glucose POCT 132(H) 70 - 100 mg/dL 07/19/2024 11:33 AM EST [facility] Blood Capillary blood specimen / Unknown 07/19/2024 11:32 AM EST 07/19/2024 11:34 AM EST us Lencho Stuart MD LAB POINT OF CARE TE ST DOCKED DEVICE UNSOLICITED RESULTS Final Result Performing Organization Address [facility] Co de Phone Number [facility] [address] [place] [address], [place] [phone] * (ABNORMAL) POCT Glucose, blood (07/19/2024 9:07 AM EST) Glucose POCT 117(H) 70 - 100 mg/dL 07/19/2024 9:07 AM EST [facility] Blood Capillary blood specimen / Unknown 07/19/2024 9:07 AM EST 07/19/2024 9:09 AM EST us Lencho Stuart MD LAB POINT OF CARE TE ST DOCKED DEVICE UNSOLICITED RESULTS Final Result Performing Organization Address [facility]/ZIP Co de Phone Number [facility] [address] [place] [address], * (ABNORMAL) CBC auto differential (07/19/2024 7:55 AM EST) [facility] WBC 25.0(H) 4.8 - 10.8 K/mcL LAB HEMETOLOGY METHOD 07/19/2024 8:36 AM [facility] RBC 2.80(L) 3.80 - 4.80 M/mcL LAB HEMETOLOGY METHOD 07/19/2024 8:36 AM [facility] Hemoglobin 7.0(L) 11.5 - 16.0 g/dL LAB HEMETOLOGY METHOD 07/19/2024 8:36 AM [facility] Hematocrit 22.2(L) 35.0 - 47.0 % LAB HEMETOLOGY METHOD 07/19/2024 8:36 AM [facility] MCV 79.0 79.0 - 98.0 FL LAB HEMETOLOGY METHOD 07/19/2024 8:36 AM [facility] MCH 24.9(L) 27.0 - 32.0 pcg LAB HEMETOLOGY METHOD 07/19/2024 8:36 AM [facility] MCHC 31.5(L) 32.0 - 37.0 g/dL LAB HEMETOLOGY METHOD 07/19/2024 8:36 AM [facility] RDW 23.9(H) 11.0 - 15.0 % LAB HEMETOLOGY METHOD 07/19/2024 8:36 AM [facility] Platelets 218 130 - 400 K/mcL LAB HEMETOLOGY METHOD 07/19/2024 8:36 AM [facility] MPV 10.6 7.0 - 11.0 FL LAB HEMETOLOGY METHOD 07/19/2024 8:36 AM [facility] NRBC 0.0 <1.0 % LAB HEMETOLOGY METHOD 07/19/2024 8:36 AM [facility] NRBC Absolute 0.00 <0.10 K/mcL LAB HEMETOLOGY METHOD 07/19/2024 8:36 AM [facility] LAB Neutrophils Relative 87.6 % LAB HEMETOLOGY METHOD 07/19/2024 8:36 AM [facility] Comment:This is an appended report. These results have been appended to a previously preliminary verified report. Lymphocytes Relative 3.0 % LAB HEMETOLOGY METHOD 07/19/2024 8:36 AM [facility] Comment:This is an appended report. These results have been appended to a previously preliminary verified report. Monocytes Relative 4.6 % LAB HEMETOLOGY METHOD 07/19/2024 8:36 AM [facility] Comment:This is an appended report. These results have been appended to a previously preliminary verified report. Eosinophils Relative 3.0 % LAB HEMETOLOGY METHOD 07/19/2024 8:36 AM [facility] Comment:This is an appended report. These results have been appended to a previously preliminary verified report. Basophils Relative 0.2 % LAB HEMETOLOGY METHOD 07/19/2024 8:36 AM [facility] Comment:This is an appended report. These results have been appended to a previously preliminary verified report. Immature Granulocytes Relative 1.6 % LAB HEMETOLOGY METHOD 07/19/2024 8:36 AM [facility] Comment:This is an appended report. These results have been appended to a previously preliminary verified report. Neutrophils Absolute 21.89(H) 1.50 - 7.00 K/mcL LAB HEMETOLOGY METHOD 07/19/2024 8:36 AM [facility] Comment:This is an appended report. These results have been appended to a previously preliminary verified report. Lymphocytes Absolute 0.76(L) 1.00 - 5.00 K/mcL LAB HEMETOLOGY METHOD 07/19/2024 8:36 AM EST [facility] Comment:This is an appended report. These results have been appended to a previously preliminary verified report. Monocytes Absolute 1.14(H) 0.20 - 1.00 K/[facility] LAB HEMETOLOGY METHOD 07/19/2024 8:36 AM EST [facility] Comment:This is an appended report. These results have been appended to a previously preliminary verified report. Eosinophils Absolute 0.76(H) 0.00 - 0.50 K/[facility] LAB HEMETOLOGY METHOD 07/19/2024 8:36 AM EST [facility] Comment:This is an appended report. These results have been appended to a previously preliminary verified report. Basophils Absolute 0.05 0.00 - 0.20 K/[facility] LAB [place] HOMETOLOGY METHOD 07/19/2024 8:36 AM EST [facility] Comment:This is an appended report. These results have been appended to a previously preliminary verified report. Immature Granulocytes Absolute 0.40(H) 0.00 - 0.03 K/[facility] [place] HOMETOLOGY METHOD 07/19/2024 8:36 AM EST [facility] Comment:This is an appended report. These results have been appended to a previously preliminary verified report. Blood Venous blood specimen / Unknown Venipuncture / Unknown 07/19/2024 7:55 AM EST 07/19/2024 7:55 AM EST us Estdimas Stuart MD LAB BLOOD ORDERABLES Final R esult [facility] [address] [place] [address], * (ABNORMAL) Parathyroid hormone related protein (07/19/2024 7:55 AM EST) PTH-related Protein (PTHrP) 24(H) 11 - 20 pg/mL 07/26/2024 4:37 PM EST [facility] Comment: This is a C-terminal PTH-RP assay. PTH-RP is useful in the differential diagnosis of hypercalcemia and levels may be elevated in patients with tumor-associated hypercalcemia. Elevated results may also be observed in patients with renal disease. This test was developed and its analytical performance characteristics have been determined by [facility]. It has not been cleared or approved by FDA. This assay has been validated pursuant to the CLIA regulations and is used for clinical purposes. Test Performed at: [facility][1] [id number] [place], [place] ??[phone] ? I Bethany GUERRERO, PhD, NINA Blood Venous blood specimen / Unknown Venipuncture / Unknown 07/19/2024 7:55 AM EST 07/19/2024 7:55 AM EST us Jesus Manuel HEDRICK LAB BLOOD ORDERABLES Final Resu lt [facility] [address] [place] [address] * (ABNORMAL) Anti-neutrophilic cytoplasmic antibody (07/19/2024 6:52 AM EST) Myeloperoxidase Ab Negative Negative LAB CHEMISTRY METHOD 07/20/2024 12:10 PM EST [facility] Myeloperoxidase Ab, Quant 1 <=20 units LAB CHEMISTRY METHOD 07/20/2024 12:10 PM EST [facility] Proteinase-3 Ab Positive(A ) Negative LAB CHEMISTRY METHOD 07/20/2024 12:10 PM EST [facility] Proteinase-3 Ab Quant 165(H) <=20 units LAB CHEMISTRY METHOD 07/20/2024 12:10 PM EST [facility] Blood Venous blood specimen / Unknown Venipuncture / Unknown 07/19/2024 6:52 AM EST 07/19/2024 7:21 AM EST us Miguel Quiles MD LAB BLOOD ORDERABLES Final Res ult Performing Organization Address City/[facility]/ZIP Co de Phone Number [facility] [address] [place] [address], * Anti-Xa - Every 6 Hours (07/19/2024 6:52 AM EST) [facility] Heparin Anti-Xa 0.37 0.30 - 0.70 I Unit/mL LAB COAGULATION METHOD 07/19/2024 7:38 AM EST [facility] Blood Venous blood specimen / Unknown Venipuncture / Unknown 07/19/2024 6:52 AM EST 07/19/2024 7:21 AM EST [facility] - 07/19/2024 7:38 AM EST Therapeutic range listed is for Unfractionated Heparin. LMW Heparin therapeutic range: 0.50-1.20 IU/mL Estate Sade GUERRERO LAB BLOOD ORDERABLES Final R esult [facility] [address] [place] [address], * (ABNORMAL) Basic metabolic panel (07/19/2024 6:52 AM EST) [facility] Sodium 128(L) 133 - 145 mmol/L LAB CHEMISTRY METHOD 07/19/2024 8:56 AM [facility] Potassium 4.9 3.5 - 5.5 mmol/L LAB CHEMISTRY METHOD 07/19/2024 8:56 AM [facility] Chloride 93(L) 96 - 110 mmol/L LAB CHEMISTRY METHOD 07/19/2024 8:56 AM [facility] CO2 28 21 - 32 mmol/L LAB CHEMISTRY METHOD 07/19/2024 8:56 AM [facility] Anion Gap 7 3 - 11 LAB CHEMISTRY METHOD 07/19/2024 8:56 AM [facility] Glucose 170(H) 70 - 100 mg/dL LAB CHEMISTRY METHOD 07/19/2024 8:56 AM [facility] BUN 83(H) 5 - 25 mg/dL LAB CHEMISTRY METHOD 07/19/2024 8:56 AM EST [facility] Creatinine 5.96(H) 0.50 - 1.10 mg/dL LAB CHEMISTRY METHOD 07/19/2024 8:56 AM [facility] eGFR 7(L) >=60 mL/min/1. 73m2 LAB CHEMISTRY METHOD 07/19/2024 8:56 AM [facility] Comment:Calculation based on the??Chronic Kidney Disease Epidemiology Collaboration (CKD-EPI) equation refit??without adjustment for race. BUN/Creatinine Ratio 13.9 LAB CHEMISTRY METHOD 07/19/2024 8:56 AM [facility] Calcium 7.7(L) 8.5 - 10.5 mg/dL LAB CHEMISTRY METHOD 07/19/2024 8:56 AM [facility] Blood Venous blood specimen / Unknown Venipuncture / Unknown 07/19/2024 6:52 AM EST 07/19/2024 7:21 AM EST us Lencho Stuart MD LAB BLOOD ORDERABLES Final R esult [facility] [address] [place] [address], * (ABNORMAL) POCT Glucose, blood (07/18/2024 8:27 PM EST) Glucose POCT 193(H) 70 - 100 mg/dL 07/18/2024 8:27 PM EST [facility] Blood Capillary blood specimen / Unknown 07/18/2024 8:27 PM EST 07/18/2024 8:28 PM EST us Lencho Stuart MD LAB POINT OF CARE TE ST DOCKED DEVICE UNSOLICITED RESULTS Final Result [facility] [address] [place] [address], [place] [phone] * Anti-Xa - Every 6 Hours (07/18/2024 6:07 PM EST) [facility] Heparin Anti-Xa 0.42 0.30 - 0.70 I Unit/mL LAB COAGULATION METHOD 07/18/2024 7:21 PM EST [facility] Blood Venous blood specimen / Unknown Venipuncture / Unknown 07/18/2024 6:07 PM EST 07/18/2024 7:00 PM EST Narrative [facility] - 07/18/2024 7:21 PM EST Therapeutic range listed is for Unfractionated Heparin. LMW Heparin therapeutic range: 0.50-1.20 IU/mL us Kwesi Guido MD LAB BLOOD ORDERABLES F inal Result [facility] [address] [place] [address], [place] [phone] * (ABNORMAL) POCT Glucose, blood (07/18/2024 4:00 PM EST) [facility] Glucose POCT 210(H) 70 - 100 mg/dL 07/18/2024 4:01 PM EST [facility] Blood Capillary blood specimen / Unknown 07/18/2024 4:00 PM EST 07/18/2024 4:02 PM EST Lencho Stuart MD LAB POINT OF CARE TE ST DOCKED DEVICE UNSOLICITED RESULTS Final Result [facility] [address] [place] [address], [place] [phone] * Anti-Xa - Every 6 Hours (07/18/2024 12:43 PM EST) [facility] Heparin Anti-Xa 0.39 0.30 - 0.70 I Unit/mL LAB COAGULATION METHOD 07/18/2024 1:15 PM EST [facility] Blood Venous blood specimen / Unknown Venipuncture / Unknown 07/18/2024 12:43 PM EST 07/18/2024 12:49 PM EST Narrative [facility] - 07/18/2024 1:15 PM EST Therapeutic range listed is for Unfractionated Heparin. LMW Heparin therapeutic range: 0.50-1.20 IU/mL us Kwesi Guido MD LAB BLOOD ORDERABLES F inal Result [facility] [address] [place] [address], [place] [phone] * (ABNORMAL) POCT Glucose, blood (07/18/2024 11:17 AM EST) Glucose POCT 244(H) 70 - 100 mg/dL 07/18/2024 11:19 AM EST [facility] Blood Capillary blood specimen / Unknown 07/18/2024 11:17 AM EST 07/18/2024 11:21 AM EST Lencho Stuart MD LAB POINT OF CARE TE ST DOCKED DEVICE UNSOLICITED RESULTS Final Result [facility] [address] [place] [address], [place] [phone] * (ABNORMAL) POCT Glucose, blood (07/18/2024 7:54 AM EST) Glucose POCT 219(H) 70 - 100 mg/dL 07/18/2024 7:54 AM EST [facility] Blood Capillary blood specimen / Unknown 07/18/2024 7:54 AM EST 07/18/2024 7:56 AM EST Lencho Stuart MD LAB POINT OF CARE TE ST DOCKED DEVICE UNSOLICITED RESULTS Final Result Performing Organization Address [facility]/ZIP Co de Phone Number [facility] [address] [place] [address], [place] [phone] * Robertson urine culture tube (07/18/2024 6:10 AM EST) Extra Tube Hold for add-ons. 07/18/2024 8:01 AM EST [facility] Comment:Auto resulted. Urine Urine specimen obtained by clean catch procedure / Unknown 07/18/2024 6:10 AM EST 07/18/2024 6:37 AM EST Lencho Stuart MD LAB URINE ORDERABLES Final R esult Performing Organization Address City[facility]/ZIP Co de Phone Number [facility] [address] [place] [address], [place] [phone] * (ABNORMAL) Urinalysis microscopic only (07/18/2024 6:09 AM EST) RBC, Urine 10(H) 0 - 4 /HPF 07/18/2024 7:53 AM [facility] WBC, Urine >100(H) 0 - 4 /HPF 07/18/2024 7:53 AM [facility] Squamous Epithelial, Urine 10 0 - 60 /LPF 07/18/2024 7:53 AM [facility] Non-Squamous Epithelial, Urine 2-5 Transitional epithelial cells. /LPF 07/18/2024 7:53 AM [facility] Bacteria, Urine Many(A) Negative /HPF 07/18/2024 7:53 AM [facility] Other Casts, Urine Rare Coarse Granular casts. /LPF 07/18/2024 7:53 AM [facility] Urine Indwelling urinary catheter / Unknown Non-blood Collection / Unknown 07/18/2024 6:09 AM EST 07/18/2024 6:36 AM EST us Kwesi Guido MD LAB URINE ORDERABLES F inal Result Performing Organization Address [facility] Co de Phone Number [facility] [address] [place] [address], * Anti-Xa - Every 6 Hours (07/18/2024 6:07 AM EST) Heparin Anti-Xa 0.34 0.30 - 0.70 I Unit/mL LAB COAGULATION METHOD 07/18/2024 7:02 AM EST [facility] Blood Venous blood specimen / Unknown 07/18/2024 6:07 AM EST 07/18/2024 6:34 AM EST Narrative [facility] - 07/18/2024 7:02 AM EST Therapeutic range listed is for Unfractionated Heparin. LMW Heparin therapeutic range: 0.50-1.20 IU/mL us Kwesi Guido MD LAB BLOOD ORDERABLES F inal Result Performing Organization Address [facility]/ZIP Co de Phone Number [facility] [address] [place] [address], * (ABNORMAL) CBC auto differential (07/18/2024 6:07 AM EST) WBC 25.5(H) 4.8 - 10.8 K/mcL LAB HEMETOLOGY METHOD 07/18/2024 7:23 AM EST [facility] RBC 3.20(L) 3.80 - 4.80 M/mcL LAB HEMETOLOGY METHOD 07/18/2024 7:23 AM EST [facility] Hemoglobin 7.8(L) 11.5 - 16.0 g/dL LAB HEMETOLOGY METHOD 07/18/2024 7:23 AM [facility] Hematocrit 24.9(L) 35.0 - 47.0 % LAB HEMETOLOGY METHOD 07/18/2024 7:23 AM [facility] MCV 77.6(L) 79.0 - 98.0 FL LAB HEMETOLOGY METHOD 07/18/2024 7:23 AM [facility] MCH 24.3(L) 27.0 - 32.0 pcg LAB HEMETOLOGY METHOD 07/18/2024 7:23 AM [facility] MCHC 31.3(L) 32.0 - 37.0 g/dL LAB HEMETOLOGY METHOD 07/18/2024 7:23 AM [facility] RDW 24.1(H) 11.0 - 15.0 % LAB HEMETOLOGY METHOD 07/18/2024 7:23 AM [facility] Platelets 242 130 - 400 K/mcL LAB HEMETOLOGY METHOD 07/18/2024 7:23 AM [facility] MPV 9.6 7.0 - 11.0 FL LAB HEMETOLOGY METHOD 07/18/2024 7:23 AM [facility] NRBC 0.0 <1.0 % LAB HEMETOLOGY METHOD 07/18/2024 7:23 AM [facility] NRBC Absolute 0.00 <0.10 K/mcL LAB HEMETOLOGY METHOD 07/18/2024 7:23 AM [facility] Neutrophils Relative 89.3 % LAB HEMETOLOGY METHOD 07/18/2024 7:23 AM [facility] Comment:This is an appended report. These results have been appended to a previously preliminary verified report. Lymphocytes Relative 2.8 % LAB HEMETOLOGY METHOD 07/18/2024 7:23 AM [facility] Comment:This is an appended report. These results have been appended to a previously preliminary verified report. Monocytes Relative 4.2 % LAB HEMETOLOGY METHOD 07/18/2024 7:23 AM [facility] Comment:This is an appended report. These results have been appended to a previously preliminary verified report. Eosinophils Relative 1.9 % LAB HEMETOLOGY METHOD 07/18/2024 7:23 AM [facility] Comment:This is an appended report. These results have been appended to a previously preliminary verified report. Basophils Relative 0.2 % LAB HEMETOLOGY METHOD 07/18/2024 7:23 AM [facility] Comment:This is an appended report. These results have been appended to a previously preliminary verified report. Immature Granulocytes Relative 1.6 % LAB HEMETOLOGY METHOD 07/18/2024 7:23 AM [facility] Comment:This is an appended report. These results have been appended to a previously preliminary verified report. Neutrophils Absolute 22.74(H) 1.50 - 7.00 K/mcL LAB HEMETOLOGY METHOD 07/18/2024 7:23 AM [facility] Comment:This is an appended report. These results have been appended to a previously preliminary verified report. Lymphocytes Absolute 0.72(L) 1.00 - 5.00 K/mcL LAB HEMETOLOGY METHOD 07/18/2024 7:23 AM [facility] Comment:This is an appended report. These results have been appended to a previously preliminary verified report. Monocytes Absolute 1.06(H) 0.20 - 1.00 K/mcL LAB HEMETOLOGY METHOD 07/18/2024 7:23 AM [facility] Comment:This is an appended report. These results have been appended to a previously preliminary verified report. Eosinophils Absolute 0.49 0.00 - 0.50 K/mcL LAB HEMETOLOGY METHOD 07/18/2024 7:23 AM [facility] Comment:This is an appended report. These results have been appended to a previously preliminary verified report. Basophils Absolute 0.04 0.00 - 0.20 K/mcL LAB HEMETOLOGY METHOD 07/18/2024 7:23 AM EST [facility] Comment:This is an appended report. These results have been appended to a previously preliminary verified report. Immature Granulocytes Absolute 0.41(H) 0.00 - 0.03 K/mcL LAB HEMETOLOGY METHOD 07/18/2024 7:23 AM EST [facility] Comment:This is an appended report. These results have been appended to a previously preliminary verified report. Blood Venous blood specimen / Unknown Venipuncture / Unknown 07/18/2024 6:07 AM EST 07/18/2024 7:16 AM EST us Kwesi Guido MD LAB BLOOD ORDERABLES F inal Result Performing Organization Address City[facility]/ZIP Co de Phone Number [facility] [address] [place] [address], [place] [phone] * (ABNORMAL) Calcium, ionized (07/18/2024 6:07 AM EST) Calcium Ionized 4.28(L) 4.50 - 5.30 mg/dL 07/18/2024 6:46 AM EST [facility] Blood Venous blood specimen / Unknown 07/18/2024 6:07 AM EST 07/18/2024 6:33 AM EST us Kwesi Guido MD LAB BLOOD ORDERABLES F inal Result [facility] [address] [place] [address], [place] [phone] * (ABNORMAL) Basic metabolic panel (07/18/2024 6:07 AM EST) Sodium 132(L) 133 - 145 mmol/L LAB CHEMISTRY METHOD 07/18/2024 7:48 AM [facility] Potassium 4.4 3.5 - 5.5 mmol/L LAB CHEMISTRY METHOD 07/18/2024 7:48 AM [facility] Chloride 95(L) 96 - 110 mmol/L LAB CHEMISTRY METHOD 07/18/2024 7:48 AM [facility] CO2 27 21 - 32 mmol/L LAB CHEMISTRY METHOD 07/18/2024 7:48 AM [facility] Anion Gap 10 3 - 11 LAB CHEMISTRY METHOD 07/18/2024 7:48 AM [facility] Glucose 225(H) 70 - 100 mg/dL LAB CHEMISTRY METHOD 07/18/2024 7:48 AM [facility] BUN 67(H) 5 - 25 mg/dL LAB CHEMISTRY METHOD 07/18/2024 7:48 AM [facility] Creatinine 4.92(H) 0.50 - 1.10 mg/dL LAB CHEMISTRY METHOD 07/18/2024 7:48 AM [facility] eGFR 8(L) >=60 mL/min/1. 73m2 LAB CHEMISTRY METHOD 07/18/2024 7:48 AM [facility] Comment:Calculation based on the??Chronic Kidney Disease Epidemiology Collaboration (CKD-EPI) equation refit??without adjustment for race. BUN/Creatinine Ratio 13.6 LAB CHEMISTRY METHOD 07/18/2024 7:48 AM [facility] Calcium 7.5(L) 8.5 - 10.5 mg/dL LAB CHEMISTRY METHOD 07/18/2024 7:48 AM [facility] Blood Venous blood specimen / Unknown 07/18/2024 6:07 AM EST 07/18/2024 6:34 AM EST us Kwesi Guido MD LAB BLOOD ORDERABLES F inal Result [facility] [address] [place] [address], [place] [phone] * (ABNORMAL) Anti-Xa - Every 6 Hours (07/18/2024 12:19 AM EST) [facility] Heparin Anti-Xa 0.19(L) 0.30 - 0.70 I Unit/mL LAB COAGULATION METHOD 07/18/2024 12:48 AM EST [facility] Blood Venous blood specimen / Unknown Venipuncture / Unknown 07/18/2024 12:19 AM EST 07/18/2024 12:38 AM EST Narrative [facility] - 07/18/2024 12:48 AM EST Therapeutic range listed is for Unfractionated Heparin. LMW Heparin therapeutic range: 0.50-1.20 IU/mL us Kwesi Guido MD LAB BLOOD ORDERABLES F inal Result [facility] [address] [place] [address], [place] [phone] * (ABNORMAL) POCT Glucose, blood (07/17/2024 9:12 PM EST) [facility] Glucose POCT 240(H) 70 - 100 mg/dL 07/17/2024 9:13 PM EST [facility] Blood Capillary blood specimen / Unknown 07/17/2024 9:12 PM EST 07/17/2024 9:14 PM EST us Kwesi Guido MD LAB POINT OF C ARE TEST DOCKED DEVICE UNSOLICITED RESULTS Final Result [facility] [address] [place] [address], [place] [phone] * Anti-Xa - Every 6 Hours (07/17/2024 6:37 PM EST) Heparin Anti-Xa 0.30 0.30 - 0.70 I Unit/mL LAB COAGULATION METHOD 07/17/2024 7:18 PM EST [facility] Blood Venous blood specimen / Unknown Venipuncture / Unknown 07/17/2024 6:37 PM EST 07/17/2024 7:06 PM EST Narrative [facility] - 07/17/2024 7:18 PM EST Therapeutic range listed is for Unfractionated Heparin. LMW Heparin therapeutic range: 0.50-1.20 IU/mL us Kwesi Guido MD LAB BLOOD ORDERABLES F inal Result [facility] [address] [place] [address], [place] [phone] * (ABNORMAL) POCT Glucose, blood (07/17/2024 4:15 PM EST) [facility] Glucose POCT 238(H) 70 - 100 mg/dL 07/17/2024 4:16 PM EST [facility] Blood Capillary blood specimen / Unknown 07/17/2024 4:15 PM EST 07/17/2024 4:17 PM EST us Kwesi Guido MD LAB POINT OF C ARE TEST DOCKED DEVICE UNSOLICITED RESULTS Final Result [facility] [address] [place] [address], [place] [phone] * Anti-Xa - Every 6 Hours (07/17/2024 12:29 PM EST) [facility] Heparin Anti-Xa 0.37 0.30 - 0.70 I Unit/mL LAB COAGULATION METHOD 07/17/2024 1:11 PM EST [facility] Blood Venous blood specimen / Unknown Venipuncture / Unknown 07/17/2024 12:29 PM EST 07/17/2024 12:35 PM EST Narrative [facility] - 07/17/2024 1:11 PM EST Therapeutic range listed is for Unfractionated Heparin. LMW Heparin therapeutic range: 0.50-1.20 IU/mL us Kwesi Guido MD LAB BLOOD ORDERABLES F inal Result Performing Organization Address [facility]/ZIP Co de Phone Number [facility] [address] [place] [address], [place] [phone] * (ABNORMAL) POCT Glucose, blood (07/17/2024 11:19 AM EST) Glucose POCT 307(H) 70 - 100 mg/dL 07/17/2024 11:25 AM EST [facility] Blood Capillary blood specimen / Unknown 07/17/2024 11:19 AM EST 07/17/2024 11:26 AM EST us Kwesi Guido MD LAB POINT OF C ARE TEST DOCKED DEVICE UNSOLICITED RESULTS Final Result Performing Organization Address [facility] Co de Phone Number [facility] [address] [place] [address], [place] [phone] * (ABNORMAL) POCT Glucose, blood (07/17/2024 7:57 AM EST) Glucose POCT 258(H) 70 - 100 mg/dL 07/17/2024 7:58 AM EST [facility] Blood Capillary blood specimen / Unknown 07/17/2024 7:57 AM EST 07/17/2024 7:59 AM EST us Kwesi Guido MD LAB POINT OF C ARE TEST DOCKED DEVICE UNSOLICITED RESULTS Final Result Performing Organization Address City/[facility] Co de Phone Number [facility] [address] [place] [address], [place] [phone] * (ABNORMAL) Anti-Xa - Every 6 Hours (07/17/2024 6:30 AM EST) Pathologist [facility] [place] Heparin Anti-Xa 0.20(L) 0.30 - 0.70 I Unit/mL LAB COAGULATION METHOD 07/17/2024 7:43 AM EST [facility] Blood Venous blood specimen / Unknown Venipuncture / Unknown 07/17/2024 6:30 AM EST 07/17/2024 7:06 AM EST Narrative [facility] - 07/17/2024 7:43 AM EST Therapeutic range listed is for Unfractionated Heparin. LMW Heparin therapeutic range: 0.50-1.20 IU/mL us Kwesi Guido MD LAB BLOOD ORDERABLES F inal Result [facility] [address] [place] [address], [place] [phone] * (ABNORMAL) CBC auto differential (07/17/2024 6:30 AM EST) [facility] WBC 23.0(H) 4.8 - 10.8 K/[facility] LAB HEMETOLOGY METHOD 07/17/2024 8:50 AM EST [facility] RBC 3.30(L) 3.80 - 4.80 M/[facility] LAB HEMETOLOGY METHOD 07/17/2024 8:50 AM EST [facility] Hemoglobin 8.0(L) 11.5 - 16.0 g/dL LAB HEMETOLOGY METHOD 07/17/2024 8:50 AM EST [facility] Hematocrit 25.6(L) 35.0 - 47.0 % LAB HEMETOLOGY METHOD 07/17/2024 8:50 AM EST [facility] MCV 78.5(L) 79.0 - 98.0 FL LAB HEMETOLOGY METHOD 07/17/2024 8:50 AM [facility] MCH 24.5(L) 27.0 - 32.0 pcg LAB HEMETOLOGY METHOD 07/17/2024 8:50 AM [facility] MCHC 31.3(L) 32.0 - 37.0 g/dL LAB HEMETOLOGY METHOD 07/17/2024 8:50 AM [facility] RDW 23.9(H) 11.0 - 15.0 % LAB HEMETOLOGY METHOD 07/17/2024 8:50 AM [facility] Platelets 252 130 - 400 K/mcL LAB HEMETOLOGY METHOD 07/17/2024 8:50 AM [facility] MPV 9.9 7.0 - 11.0 FL LAB HEMETOLOGY METHOD 07/17/2024 8:50 AM [facility] NRBC 0.0 <1.0 % LAB HEMETOLOGY METHOD 07/17/2024 8:50 AM [facility] NRBC Absolute 0.00 <0.10 K/mcL LAB HEMETOLOGY METHOD 07/17/2024 8:50 AM [facility] Neutrophils Relative 90.9 % LAB HEMETOLOGY METHOD 07/17/2024 8:50 AM [facility] Lymphocytes Relative 2.6 % LAB HEMETOLOGY METHOD 07/17/2024 8:50 AM [facility] Monocytes Relative 4.8 % LAB HEMETOLOGY METHOD 07/17/2024 8:50 AM [facility] Eosinophils Relative 0.5 % LAB HEMETOLOGY METHOD 07/17/2024 8:50 AM [facility] Basophils Relative 0.1 % LAB HEMETOLOGY METHOD 07/17/2024 8:50 AM [facility] Immature Granulocytes Relative 1.1 % LAB HEMETOLOGY METHOD 07/17/2024 8:50 AM EST [facility] Neutrophils Absolute 20.92(H) 1.50 - 7.00 K/[facility] LAB HEMETOLOGY METHOD 07/17/2024 8:50 AM EST [facility] Lymphocytes Absolute 0.60(L) 1.00 - 5.00 K/mcL LAB HEMETOLOGY METHOD 07/17/2024 8:50 AM EST [facility] Monocytes Absolute 1.11(H) 0.20 - 1.00 K/mcL LAB HEMETOLOGY METHOD 07/17/2024 8:50 AM EST [facility] Eosinophils Absolute 0.11 0.00 - 0.50 K/[facility] LAB HEMETOLOGY METHOD 07/17/2024 8:50 AM EST [facility] Basophils Absolute 0.03 0.00 - 0.20 K/[facility] LAB HEMETOLOGY METHOD 07/17/2024 8:50 AM EST [facility] Immature Granulocytes Absolute 0.26(H) 0.00 - 0.03 K/[facility] LAB HEMETOLOGY METHOD 07/17/2024 8:50 AM EST [facility] Blood Venous blood specimen / Unknown Venipuncture / Unknown 07/17/2024 6:30 AM EST 07/17/2024 7:06 AM EST us Kwesi Guido MD LAB BLOOD ORDERABLES F inal Result [facility] [address] [place] [address], * (ABNORMAL) CBC - Every 3 Days (07/17/2024 6:30 AM EST) WBC 23.0(H) 4.8 - 10.8 K/mcL LAB HEMETOLOGY METHOD 07/17/2024 8:12 AM EST [facility] RBC 3.30(L) 3.80 - 4.80 M/mcL LAB HEMETOLOGY METHOD 07/17/2024 8:12 AM [facility] Hemoglobin 8.0(L) 11.5 - 16.0 g/dL LAB HEMETOLOGY METHOD 07/17/2024 8:12 AM [facility] Hematocrit 25.6(L) 35.0 - 47.0 % LAB HEMETOLOGY METHOD 07/17/2024 8:12 AM [facility] MCV 78.5(L) 79.0 - 98.0 FL LAB HEMETOLOGY METHOD 07/17/2024 8:12 AM [facility] MCH 24.5(L) 27.0 - 32.0 pcg LAB HEMETOLOGY METHOD 07/17/2024 8:12 AM [facility] MCHC 31.3(L) 32.0 - 37.0 g/dL LAB HEMETOLOGY METHOD 07/17/2024 8:12 AM [facility] RDW 23.9(H) 11.0 - 15.0 % LAB HEMETOLOGY METHOD 07/17/2024 8:12 AM [facility] Platelets 252 130 - 400 K/mcL LAB HEMETOLOGY METHOD 07/17/2024 8:12 AM [facility] MPV 9.9 7.0 - 11.0 FL LAB HEMETOLOGY METHOD 07/17/2024 8:12 AM [facility] NRBC 0.0 <1.0 % LAB HEMETOLOGY METHOD 07/17/2024 8:12 AM [facility] NRBC Absolute 0.00 <0.10 K/mcL LAB HEMETOLOGY METHOD 07/17/2024 8:12 AM [facility] Blood Venous blood specimen / Unknown Venipuncture / Unknown 07/17/2024 6:30 AM EST 07/17/2024 7:06 AM EST us Kwesi Guido MD LAB BLOOD ORDERABLES F inal Result [facility] [address] [place] [address], [place] [phone] * Phosphorus (07/17/2024 6:30 AM EST) Phosphorus 2.9 2.5 - 4.5 mg/dL LAB CHEMISTRY METHOD 07/17/2024 8:09 AM EST [facility] Blood Venous blood specimen / Unknown Venipuncture / Unknown 07/17/2024 6:30 AM EST 07/17/2024 7:06 AM EST us Kwesi Guido MD LAB BLOOD ORDERABLES F inal Result Performing Organization Address City/[facility]/ZIP Co de Phone Number [facility] [address] [place] [address], [place] [phone] * Magnesium (07/17/2024 6:30 AM EST) [facility] Magnesium 2.2 1.9 - 2.6 mg/dL LAB CHEMISTRY METHOD 07/17/2024 8:09 AM EST [facility] Blood Venous blood specimen / Unknown Venipuncture / Unknown 07/17/2024 6:30 AM EST 07/17/2024 7:06 AM EST us Kwesi Guido MD LAB BLOOD ORDERABLES F inal Result [facility] [address] [place] [address], [place] [phone] * (ABNORMAL) Basic metabolic panel (07/17/2024 6:30 AM EST) Sodium 133 133 - 145 mmol/L LAB CHEMISTRY METHOD 07/17/2024 8:09 AM [facility] Potassium 3.8 3.5 - 5.5 mmol/L LAB CHEMISTRY METHOD 07/17/2024 8:09 AM [facility] Chloride 96 96 - 110 mmol/L LAB CHEMISTRY METHOD 07/17/2024 8:09 AM [facility] CO2 26 21 - 32 mmol/L LAB CHEMISTRY METHOD 07/17/2024 8:09 AM [facility] Anion Gap 11 3 - 11 LAB CHEMISTRY METHOD 07/17/2024 8:09 AM [facility] Glucose 293(H) 70 - 100 mg/dL LAB CHEMISTRY METHOD 07/17/2024 8:09 AM [facility] BUN 53(H) 5 - 25 mg/dL LAB CHEMISTRY METHOD 07/17/2024 8:09 AM [facility] Creatinine 4.03(H) 0.50 - 1.10 mg/dL LAB CHEMISTRY METHOD 07/17/2024 8:09 AM [facility] eGFR 11(L) >=60 mL/min/1. 73m2 LAB CHEMISTRY METHOD 07/17/2024 8:09 AM [facility] Comment:Calculation based on the??Chronic Kidney Disease Epidemiology Collaboration (CKD-EPI) equation refit??without adjustment for race. BUN/Creatinine Ratio 13.2 LAB CHEMISTRY METHOD 07/17/2024 8:09 AM [facility] Calcium 7.7(L) 8.5 - 10.5 mg/dL LAB CHEMISTRY METHOD 07/17/2024 8:09 AM [facility] Blood Venous blood specimen / Unknown Venipuncture / Unknown 07/17/2024 6:30 AM EST 07/17/2024 7:06 AM EST us Kwesi Guido MD LAB BLOOD ORDERABLES F inal Result [facility] [address] [place] [address], [place] [phone] * (ABNORMAL) Anti-Xa - Every 6 Hours (07/17/2024 12:16 AM EST) [facility] Heparin Anti-Xa 0.14(L) 0.30 - 0.70 I Unit/mL LAB COAGULATION METHOD 07/17/2024 12:45 AM EST [facility] Blood Venous blood specimen / Unknown Venipuncture / Unknown 07/17/2024 12:16 AM EST 07/17/2024 12:35 AM EST Narrative [facility] - 07/17/2024 12:45 AM EST Therapeutic range listed is for Unfractionated Heparin. LMW Heparin therapeutic range: 0.50-1.20 IU/mL us Kwesi Guido MD LAB BLOOD ORDERABLES F inal Result [facility] [address] [place] [address], [place] [phone] * (ABNORMAL) POCT Glucose, blood (07/16/2024 8:30 PM EST) [facility] Glucose POCT 263(H) 70 - 100 mg/dL 07/16/2024 8:31 PM EST [facility] Blood Capillary blood specimen / Unknown 07/16/2024 8:30 PM EST 07/16/2024 8:33 PM EST us Kwesi Guido MD LAB POINT OF C ARE TEST DOCKED DEVICE UNSOLICITED RESULTS Final Result [facility] [address] [place] [address], [place] [phone] * (ABNORMAL) Anti-Xa - STAT (07/16/2024 5:50 PM EST) [facility] Heparin Anti-Xa <0.04(L) 0.30 - 0.70 I Unit/mL LAB COAGULATION METHOD 07/16/2024 6:18 PM EST [facility] Blood Venous blood specimen / Unknown Venipuncture / Unknown 07/16/2024 5:50 PM EST 07/16/2024 6:01 PM EST Narrative [facility] - 07/16/2024 6:18 PM EST Therapeutic range listed is for Unfractionated Heparin. LMW Heparin therapeutic range: 0.50-1.20 IU/mL us Kwesi Guido MD LAB BLOOD ORDERABLES F inal Result Performing Organization Address City[facility]/ZIP Co de Phone Number [facility] [address] [place] [address], [place] [phone] * Activated Partial Thromboplastin Time - STAT (07/16/2024 5:50 PM EST) [facility] aPTT 31.3 24.1 - 39.3 sec LAB COAGULATION METHOD 07/16/2024 6:13 PM EST [facility] Blood Venous blood specimen / Unknown Venipuncture / Unknown 07/16/2024 5:50 PM EST 07/16/2024 6:01 PM EST us Kwesi Giudo MD LAB BLOOD ORDERABLES F inal Result [facility] [address] [place] [address], [place] [phone] * (ABNORMAL) POCT Glucose, blood (07/16/2024 4:28 PM EST) [facility] Glucose POCT 170(H) 70 - 100 mg/dL 07/16/2024 4:31 PM EST [facility] Blood Capillary blood specimen / Unknown 07/16/2024 4:28 PM EST 07/16/2024 4:32 PM EST us Kwesi Guido MD LAB POINT OF C ARE TEST DOCKED DEVICE UNSOLICITED RESULTS Final Result [facility] [address] [place] [address], [place] [phone] * Vascular US duplex lower extremity venous bilateral (07/16/2024 12:05 PM EST) Anatomical Region Laterality Modality Vascular, Abdomen Ultrasound 07/16/2024 12:2 8 PM EST Impressions 07/16/2024 12:33 PM EST Occlusive clot left mid posterior tibial vein. Otherwise rest of left leg and the entire right leg are negative for DVT -------- FINAL REPORT -------- Dictated By: Nicolás Bahena Dictated Date: 07/16/2024 12:28 ET Assigned Physician: Nicolás Bahena Reviewed and Electronically Signed By: Nicolás Bahena Signed Date: 07/16/2024 12:33 ET Workstation ID: [id number] Transcribed By: Self Edit Transcribed Date: 07/16/2024 12:28 ET Narrative 07/16/2024 12:33 PM EST Examination: Ultrasound duplex venous bilateral lower extremities. CLINICAL INDICATION: Bilateral leg edema. COMPARISON: Ultrasound left lower leg.. TECHNIQUE: Routine grayscale, color and Doppler imaging of bilateral lower leg veins were performed. FINDINGS: There is normal color flow, respiratory augmentation and Doppler waveform imaging of bilateral common femoral, superficial femoral, popliteal, gastrocnemius peroneal and right posterior tibial veins. There is occlusive clot in the left posterior tibial vein mid segment. Procedure Note Nicolás Bahena MD - 07/16/2024 Examination: Ultrasound duplex venous bilateral lower extremities. CLINICAL INDICATION: Bilateral leg edema. COMPARISON: Ultrasound left lower leg.. TECHNIQUE: Routine grayscale, color and Doppler imaging of bilateral lowerleg veins were performed. FINDINGS: There is normal color flow, respiratory augmentation and Doppler waveformimaging of bilateral common femoral, superficial femoral, popliteal,gastrocnemius peroneal and right posterior tibial veins. There is occlusive clot in the left posterior tibial vein mid segment. IMPRESSION: Occlusive clot left mid posterior tibial vein. Otherwise rest of left leg and the entire right leg are negative for DVT -------- FINAL REPORT -------- Dictated By: Nicolás Bahena Dictated Date: 07/16/2024 12:28 ET Assigned Physician: Nicolás Bahena Reviewed and Electronically Signed By: Nicolás Bahena Signed Date: 07/16/2024 12:33 ET Workstation ID: [id number] Transcribed By: Self Edit Transcribed Date: 07/16/2024 12:28 ET us Kwesi Guido MD CV VASCULAR PROCEDURES Final Result * (ABNORMAL) POCT Glucose, blood (07/16/2024 10:42 AM EST) Pathologist [facility] [place] Glucose POCT 105(H) 70 - 100 mg/dL 07/16/2024 10:44 AM EST [facility] Blood Capillary blood specimen / Unknown 07/16/2024 10:42 AM EST 07/16/2024 10:45 AM EST us Kwesi Guido MD LAB POINT OF C ARE TEST DOCKED DEVICE UNSOLICITED RESULTS Final Result [facility] [address] [place] [address], [place] [phone] * (ABNORMAL) Basic metabolic panel (07/16/2024 6:45 AM EST) Pathologist [facility] [place] Sodium 135 133 - 145 mmol/L LAB CHEMISTRY METHOD 07/16/2024 8:40 AM EST [facility] Potassium 3.8 3.5 - 5.5 mmol/L LAB CHEMISTRY METHOD 07/16/2024 8:40 AM EST [facility] Chloride 103 96 - 110 mmol/L LAB CHEMISTRY METHOD 07/16/2024 8:40 AM EST [facility] CO2 18(L) 21 - 32 mmol/L LAB CHEMISTRY METHOD 07/16/2024 8:40 AM [facility] Anion Gap 14(H) 3 - 11 LAB CHEMISTRY METHOD 07/16/2024 8:40 AM [facility] Glucose 100 70 - 100 mg/dL LAB CHEMISTRY METHOD 07/16/2024 8:40 AM [facility] BUN 77(H) 5 - 25 mg/dL LAB CHEMISTRY METHOD 07/16/2024 8:40 AM [facility] Creatinine 5.37(H) 0.50 - 1.10 mg/dL LAB CHEMISTRY METHOD 07/16/2024 8:40 AM [facility] eGFR 8(L) >=60 mL/min/1. 73m2 LAB CHEMISTRY METHOD 07/16/2024 8:40 AM [facility] Comment:Calculation based on the??Chronic Kidney Disease Epidemiology Collaboration (CKD-EPI) equation refit??without adjustment for race. BUN/Creatinine Ratio 14.3 LAB CHEMISTRY METHOD 07/16/2024 8:40 AM [facility] Calcium 8.0(L) 8.5 - 10.5 mg/dL LAB CHEMISTRY METHOD 07/16/2024 8:40 AM [facility] Blood Venous blood specimen / Unknown Venipuncture / Unknown 07/16/2024 6:45 AM EST 07/16/2024 6:58 AM EST us Kwesi Guido MD LAB BLOOD ORDERABLES F inal Result [facility] [address] [place] [address], * (ABNORMAL) Complete blood count (07/16/2024 6:45 AM EST) WBC 27.6(H) 4.8 - 10.8 K/mcL LAB HEMETOLOGY METHOD 07/16/2024 7:16 AM [facility] RBC 3.40(L) 3.80 - 4.80 M/mcL LAB HEMETOLOGY METHOD 07/16/2024 7:16 AM [facility] Hemoglobin 8.4(L) 11.5 - 16.0 g/dL LAB HEMETOLOGY METHOD 07/16/2024 7:16 AM [facility] Hematocrit 25.9(L) 35.0 - 47.0 % LAB HEMETOLOGY METHOD 07/16/2024 7:16 AM [facility] MCV 76.2(L) 79.0 - 98.0 FL LAB HEMETOLOGY METHOD 07/16/2024 7:16 AM [facility] MCH 24.7(L) 27.0 - 32.0 pcg LAB HEMETOLOGY METHOD 07/16/2024 7:16 AM [facility] MCHC 32.4 32.0 - 37.0 g/dL LAB HEMETOLOGY METHOD 07/16/2024 7:16 AM [facility] RDW 23.1(H) 11.0 - 15.0 % LAB HEMETOLOGY METHOD 07/16/2024 7:16 AM [facility] Platelets 258 130 - 400 K/mcL LAB HEMETOLOGY METHOD 07/16/2024 7:16 AM [facility] MPV 9.9 7.0 - 11.0 FL LAB HEMETOLOGY METHOD 07/16/2024 7:16 AM [facility] NRBC 0.0 <1.0 % LAB HEMETOLOGY METHOD 07/16/2024 7:16 AM [facility] NRBC Absolute 0.00 <0.10 K/mcL LAB HEMETOLOGY METHOD 07/16/2024 7:16 AM [facility] Blood Venous blood specimen / Unknown Venipuncture / Unknown 07/16/2024 6:45 AM EST 07/16/2024 6:58 AM EST us Kwesi Guido MD LAB BLOOD ORDERABLES F inal Result Performing Organization Address [facility]/ZIP Co de Phone Number [facility] [address] [place] [address], [place] [phone] * POCT Glucose, blood (07/15/2024 8:26 PM EST) Glucose POCT 93 70 - 100 mg/dL 07/15/2024 8:26 PM EST [facility] Blood Capillary blood specimen / Unknown 07/15/2024 8:26 PM EST 07/15/2024 8:27 PM EST us Kwesi Guido MD LAB POINT OF C ARE TEST DOCKED DEVICE UNSOLICITED RESULTS Final Result Performing Organization Address [facility] Co de Phone Number [facility] [address] [place] [address], [place] [phone] * POCT Glucose, blood (07/15/2024 4:30 PM EST) Glucose POCT 92 70 - 100 mg/dL 07/15/2024 4:31 PM EST [facility] Blood Capillary blood specimen / Unknown 07/15/2024 4:30 PM EST 07/15/2024 4:33 PM EST us Kwesi Guido MD LAB POINT OF C ARE TEST DOCKED DEVICE UNSOLICITED RESULTS Final Result Performing Organization Address [facility]/ZIP Co de Phone Number [facility] [address] [place] [address], [place] [phone] * IR Insert Tunneled CVC wo Port or Pump More 5yrs Left (07/15/2024 3:36 PM EST) Anatomical Region Laterality Modality Left Interventional R adiology 07/15/2024 3:45 PM EST Impressions 07/15/2024 3:47 PM EST Successful placement of a 14 [place]i 23 cm dual-lumen cuffed tunneled dialysis catheter with the tip at the cavoatrial junction. This line may be used immediately. -------- FINAL REPORT -------- Dictated By: Fela Palomo Dictated Date: 07/15/2024 15:45 ET Assigned Physician: Fela Palomo Reviewed and Electronically Signed By: Fela Palomo Signed Date: 07/15/2024 15:47 ET Workstation ID: [id number] Transcribed By: Self Edit Transcribed Date: 07/15/2024 15:45 ET Narrative 07/15/2024 3:47 PM EST HISTORY: Renal failure TECHNIQUE: After informed consent was obtained the patient was placed supine on the angiographic table and the left lower neck and upper chest were draped and prepped using maximum sterile barrier. The left side was chosen after evaluation of patient's CT in correlating with real-time ultrasound which demonstrates narrowing along the lower right internal jugular vein which is overall smaller compared to the left side. 2% buffered lidocaine was used as local anesthetic. Moderate IV sedation was initiated and maintained for approximately 30 minutes while the patient was independently monitored by the radiology nurse under the supervision of the interventional radiologist. Under real-time ultrasound guidance access was obtained into the internal jugular vein using a micropuncture needle. The microwire was advanced through the needle and fluoroscopically guided into the superior vena cava. The needle was exchanged for the 4 Bahraini transition sheath. A 0.035 wire was then advanced through ??the sheath and into the inferior vena cava under fluoroscopy. The sheath was then exchanged for a 7 [place]raini vascular dilator. Attention was then turned to the right upper chest and the appropriate area was anesthetized with 2% lidocaine. A small dermatotomy was performed and then a tunnel was created from the dermatotomy to the initial venous access site. The catheter was advanced through the tunnel. ??The initial venous access site was then serially dilated up to a 15 [place]i peel-away sheath. The catheter was then advanced through the valve peel-away sheath which was subsequently removed. The position of the catheter was checked under fluoroscopy. The catheter was flushed and heparinized as per protocol. The initial venous access site was approximated with a single vertical mattress suture. The catheter was sutured to the skin with a suture around the exit site. These sutures should be removed in approximately 10 days. A sterile dressing was applied. The patient tolerated the procedure well and left the department in stable condition without any immediate complications. FINDINGS: Initial ultrasound image demonstrates patent internal jugular vein. Final spot radiograph demonstrates newly placed tunneled dialysis catheter with the tip at the cavoatrial junction. Total patient dose (air kerma): 2 mGy Procedure Note Fela Palomo MD - 07/15/2024 HISTORY: Renal failure TECHNIQUE: After informed consent was obtained the patient was placedsupine on the angiographic table and the left lower neck and upper chestwere draped and prepped using maximum sterile barrier. The left side waschosen after evaluation of patient's CT in correlating with real-timeultrasound which demonstrates narrowing along the lower right internaljugular vein which is overall smaller compared to the left side. 2% buffered lidocaine was used as local anesthetic. Moderate IV sedationwas initiated and maintained for approximately 30 minutes while thepatient was independently monitored by the radiology nurse under thesupervision of the interventional radiologist. Under real-time ultrasound guidance access was obtained into the internaljugular vein using a micropuncture needle. The microwire was advancedthrough the needle and fluoroscopically guided into the superior venacava. The needle was exchanged for the 4 [place]raini transition sheath. A 0.035wire was then advanced through the sheath and into the inferior vena cavaunder fluoroscopy. The sheath was then exchanged for a 7 [place]raini vasculardilator. Attention was then turned to the right upper chest and the appropriatearea was anesthetized with 2% lidocaine. A small dermatotomy was performedand then a tunnel was created from the dermatotomy to the initial venousaccess site. The catheter was advanced through the tunnel. The initialvenous access site was then serially dilated up to a 15 [place]raini peel-awaysheath. The catheter was then advanced through the valve peel-away sheathwhich was subsequently removed. The position of the catheter was checkedunder fluoroscopy. The catheter was flushed and heparinized as perprotocol. The initial venous access site was approximated with a singlevertical mattress suture. The catheter was sutured to the skin with asuture around the exit site. These sutures should be removed inapproximately 10 days. A sterile dressing was applied. The patient tolerated the procedure well and left the department in stablecondition without any immediate complications. FINDINGS: Initial ultrasound image demonstrates patent internal jugular vein. Final spot radiograph demonstrates newly placed tunneled dialysis catheterwith the tip at the cavoatrial junction. Total patient dose (air kerma): 2 mGy IMPRESSION: Successful placement of a 14 [place]i 23 cm dual-lumen cuffed tunneleddialysis catheter with the tip at the cavoatrial junction. This line maybe used immediately. -------- FINAL REPORT -------- Dictated By: Fela Palomo Dictated Date: 07/15/2024 15:45 ET Assigned Physician: Fela Palomo Reviewed and Electronically Signed By: Fela Palomo Signed Date: 07/15/2024 15:47 ET Workstation ID: [id number] Transcribed By: Self Edit Transcribed Date: 07/15/2024 15:45 ET Chencho Wayne MD IMG IR PROCEDURES Final Result * POCT Glucose, blood (07/15/2024 10:57 AM EST) [facility] Glucose POCT 98 70 - 100 mg/dL 07/15/2024 10:58 AM EST [facility] Blood Capillary blood specimen / Unknown 07/15/2024 10:57 AM EST 07/15/2024 10:59 AM EST Kwesi Guido MD LAB POINT OF C ARE TEST DOCKED DEVICE UNSOLICITED RESULTS Final Result [facility] [address] [place] [address], [place] [phone] * (ABNORMAL) Basic metabolic panel (07/15/2024 8:56 AM EST) [facility] Sodium 132(L) 133 - 145 mmol/L LAB CHEMISTRY METHOD 07/15/2024 10:15 AM EST [facility] Potassium 3.8 3.5 - 5.5 mmol/L LAB CHEMISTRY METHOD 07/15/2024 10:15 AM [facility] Chloride 104 96 - 110 mmol/L LAB CHEMISTRY METHOD 07/15/2024 10:15 AM [facility] CO2 16(L) 21 - 32 mmol/L LAB CHEMISTRY METHOD 07/15/2024 10:15 AM [facility] Anion Gap 12(H) 3 - 11 LAB CHEMISTRY METHOD 07/15/2024 10:15 AM [facility] Glucose 80 70 - 100 mg/dL LAB CHEMISTRY METHOD 07/15/2024 10:15 AM [facility] BUN 97(H) 5 - 25 mg/dL LAB CHEMISTRY METHOD 07/15/2024 10:15 AM [facility] Creatinine 6.70(H) 0.50 - 1.10 mg/dL LAB CHEMISTRY METHOD 07/15/2024 10:15 AM [facility] eGFR 6(L) >=60 mL/min/1. 73m2 LAB CHEMISTRY METHOD 07/15/2024 10:15 AM [facility] Comment:Calculation based on the??Chronic Kidney Disease Epidemiology Collaboration (CKD-EPI) equation refit??without adjustment for race. BUN/Creatinine Ratio 14.5 LAB CHEMISTRY METHOD 07/15/2024 10:15 AM [facility] Calcium 8.4(L) 8.5 - 10.5 mg/dL LAB CHEMISTRY METHOD 07/15/2024 10:15 AM [facility] Blood Venous blood specimen / Unknown Venipuncture / Unknown 07/15/2024 8:56 AM EST 07/15/2024 9:43 AM EST us Kwesi Guido MD LAB BLOOD ORDERABLES F inal Result [facility] [address] [place] [address], * Hepatitis B surface antigen with reflex to confirmation (07/15/2024 8:56 AM EST) [facility] Hepatitis B Surface Ag Negative Negative LAB CHEMISTRY METHOD 07/15/2024 10:36 AM EST [facility] Blood Venous blood specimen / Unknown Venipuncture / Unknown 07/15/2024 8:56 AM EST 07/15/2024 9:43 AM EST [facility] - 07/15/2024 10:36 AM EST Over the counter supplements containing high doses of biotin may interfere with this assay. ??If interference is suspected, patients shoud be retested after refraining from biotin supplements for 72 hours. us Kwesi Guido MD LAB BLOOD ORDERABLES F inal Result Performing Organization Address City/[facility]/ZIP Co de Phone Number [facility] [address] [place] [address], * Hepatitis B surface antibody quantitative (07/15/2024 8:56 AM EST) [facility] Hepatitis B Surface Ab Negative Negative LAB CHEMISTRY METHOD 07/15/2024 10:25 AM EST [facility] Hepatitis B Surface Ab Quantitative <3.1 mIU/mL LAB CHEMISTRY METHOD 07/15/2024 10:25 AM EST [facility] Blood Venous blood specimen / Unknown Venipuncture / Unknown 07/15/2024 8:56 AM EST 07/15/2024 9:43 AM EST [facility] - 07/15/2024 10:25 AM EST >=10 mIU/mL is considered to be consistent with immunity. us Kwesi Guido MD LAB BLOOD ORDERABLES F inal Result [facility] [address] [place] [address], * (ABNORMAL) Renal function panel (07/15/2024 8:56 AM EST) Sodium 132(L) 133 - 145 mmol/L LAB CHEMISTRY METHOD 07/15/2024 10:26 AM [facility] Potassium 3.8 3.5 - 5.5 mmol/L LAB CHEMISTRY METHOD 07/15/2024 10:26 AM [facility] Chloride 104 96 - 110 mmol/L LAB CHEMISTRY METHOD 07/15/2024 10:26 AM [facility] CO2 16(L) 21 - 32 mmol/L LAB CHEMISTRY METHOD 07/15/2024 10:26 AM [facility] Anion Gap 12(H) 3 - 11 LAB CHEMISTRY METHOD 07/15/2024 10:26 AM [facility] Glucose 80 70 - 100 mg/dL LAB CHEMISTRY METHOD 07/15/2024 10:26 AM [facility] BUN 97(H) 5 - 25 mg/dL LAB CHEMISTRY METHOD 07/15/2024 10:26 AM [facility] Creatinine 6.70(H) 0.50 - 1.10 mg/dL LAB CHEMISTRY METHOD 07/15/2024 10:26 AM [facility] eGFR 6(L) >=60 mL/min/1. 73m2 LAB CHEMISTRY METHOD 07/15/2024 10:26 AM [facility] Comment:Calculation based on the??Chronic Kidney Disease Epidemiology Collaboration (CKD-EPI) equation refit??without adjustment for race. BUN/Creatinine Ratio 14.5 LAB CHEMISTRY METHOD 07/15/2024 10:26 AM [facility] Albumin 3.3 3.2 - 5.0 g/dL LAB CHEMISTRY METHOD 07/15/2024 10:26 AM [facility] Comment:Results verified by repeat testing Calcium 8.4(L) 8.5 - 10.5 mg/dL LAB CHEMISTRY METHOD 07/15/2024 10:26 AM EST [facility] Phosphorus 4.2 2.5 - 4.5 mg/dL LAB CHEMISTRY METHOD 07/15/2024 10:26 AM EST [facility] Blood Venous blood specimen / Unknown Venipuncture / Unknown 07/15/2024 8:56 AM EST 07/15/2024 9:43 AM EST Chencho Wayne MD LAB BLOOD ORDERABLES Final Resu lt [facility] [address] [place] [address], [place] [phone] * POCT Glucose, blood (07/15/2024 8:03 AM EST) Glucose POCT 96 70 - 100 mg/dL 07/15/2024 8:05 AM EST [facility] Blood Capillary blood specimen / Unknown 07/15/2024 8:03 AM EST 07/15/2024 8:06 AM EST Kwesi Guido MD LAB POINT OF C ARE TEST DOCKED DEVICE UNSOLICITED RESULTS Final Result [facility] [address] [place] [address], [place] [phone] * (ABNORMAL) RBC morphology review (07/15/2024 6:56 AM EST) Rbc Morphology Present( A) Consistent with indices, Normal for [place] LAB HEMETOLOGY METHOD 07/15/2024 8:54 AM [facility] Platelet Morphology - WAM See Note(A) Normal LAB HEMETOLOGY METHOD 07/15/2024 8:54 AM EST [facility] Comment:PLT: Normal Polychromasia Present Present( A) (none) LAB HEMETOLOGY METHOD 07/15/2024 8:54 AM [facility] Pappenheimer Bodies Present Present( A) (none) LAB HEMETOLOGY METHOD 07/15/2024 8:54 AM [facility] Schistocytes Present < 5%(A) (none) LAB HEMETOLOGY METHOD 07/15/2024 8:54 AM [facility] Blood Venous blood specimen / Unknown Venipuncture / Unknown 07/15/2024 6:56 AM EST 07/15/2024 7:52 AM EST Kwesi Guido MD LAB BLOOD ORDERABLES F inal Result [facility] [address] [place] [address], * (ABNORMAL) CBC auto differential (07/15/2024 6:56 AM EST) WBC 23.7(H) 4.8 - 10.8 K/mcL LAB HEMETOLOGY METHOD 07/15/2024 8:54 AM [facility] RBC 3.10(L) 3.80 - 4.80 M/mcL LAB HEMETOLOGY METHOD 07/15/2024 8:54 AM [facility] Hemoglobin 7.5(L) 11.5 - 16.0 g/dL LAB HEMETOLOGY METHOD 07/15/2024 8:54 AM [facility] Hematocrit 23.6(L) 35.0 - 47.0 % LAB HEMETOLOGY METHOD 07/15/2024 8:54 AM [facility] MCV 75.9(L) 79.0 - 98.0 FL LAB HEMETOLOGY METHOD 07/15/2024 8:54 AM [facility] MCH 24.1(L) 27.0 - 32.0 pcg LAB HEMETOLOGY METHOD 07/15/2024 8:54 AM [facility] MCHC 31.8(L) 32.0 - 37.0 g/dL LAB HEMETOLOGY METHOD 07/15/2024 8:54 AM [facility] RDW 22.7(H) 11.0 - 15.0 % LAB HEMETOLOGY METHOD 07/15/2024 8:54 AM [facility] Platelets 246 130 - 400 K/mcL LAB HEMETOLOGY METHOD 07/15/2024 8:54 AM [facility] MPV 10.3 7.0 - 11.0 FL LAB HEMETOLOGY METHOD 07/15/2024 8:54 AM [facility] NRBC 0.0 <1.0 % LAB HEMETOLOGY METHOD 07/15/2024 8:54 AM [facility] NRBC Absolute 0.00 <0.10 K/mcL LAB HEMETOLOGY METHOD 07/15/2024 8:54 AM [facility] Neutrophils Relative 87.4 % LAB HEMETOLOGY METHOD 07/15/2024 8:54 AM [facility] Comment:This is an appended report. These results have been appended to a previously preliminary verified report. Lymphocytes Relative 3.5 % LAB HEMETOLOGY METHOD 07/15/2024 8:54 AM [facility] Comment:This is an appended report. These results have been appended to a previously preliminary verified report. Monocytes Relative 4.8 % LAB HEMETOLOGY METHOD 07/15/2024 8:54 AM [facility] Comment:This is an appended report. These results have been appended to a previously preliminary verified report. Eosinophils Relative 1.7 % LAB HEMETOLOGY METHOD 07/15/2024 8:54 AM [facility] Comment:This is an appended report. These results have been appended to a previously preliminary verified report. Basophils Relative 0.2 % LAB HEMETOLOGY METHOD 07/15/2024 8:54 AM [facility] Comment:This is an appended report. These results have been appended to a previously preliminary verified report. Immature Granulocytes Relative 2.4 % LAB HEMETOLOGY METHOD 07/15/2024 8:54 AM [facility] Comment:This is an appended report. These results have been appended to a previously preliminary verified report. Neutrophils Absolute 20.75(H) 1.50 - 7.00 K/mcL LAB HEMETOLOGY METHOD 07/15/2024 8:54 AM [facility] Comment:This is an appended report. These results have been appended to a previously preliminary verified report. Lymphocytes Absolute 0.84(L) 1.00 - 5.00 K/mcL LAB HEMETOLOGY METHOD 07/15/2024 8:54 AM [facility] Comment:This is an appended report. These results have been appended to a previously preliminary verified report. Monocytes Absolute 1.13(H) 0.20 - 1.00 K/mcL LAB HEMETOLOGY METHOD 07/15/2024 8:54 AM [facility] Comment:This is an appended report. These results have been appended to a previously preliminary verified report. Eosinophils Absolute 0.41 0.00 - 0.50 K/mcL LAB HEMETOLOGY METHOD 07/15/2024 8:54 AM [facility] Comment:This is an appended report. These results have been appended to a previously preliminary verified report. Basophils Absolute 0.05 0.00 - 0.20 K/mcL LAB HEMETOLOGY METHOD 07/15/2024 8:54 AM [facility] Comment:This is an appended report. These results have been appended to a previously preliminary verified report. Immature Granulocytes Absolute 0.56(H) 0.00 - 0.03 K/mcL LAB HEMETOLOGY METHOD 07/15/2024 8:54 AM [facility] Comment:This is an appended report. These results have been appended to a previously preliminary verified report. Blood Venous blood specimen / Unknown Venipuncture / Unknown 07/15/2024 6:56 AM EST 07/15/2024 7:52 AM EST us Kwesi Guido MD LAB BLOOD ORDERABLES F inal Result Performing Organization Address [facility]/ZIP Co de Phone Number [facility] [address] [place] [address], [place] [phone] * (ABNORMAL) Prothrombin time with INR (07/15/2024 6:56 AM EST) Protime 16.4(H) 10.6 - 13.9 sec LAB COAGULATION METHOD 07/15/2024 8:16 AM EST [facility] INR 1.3 LAB COAGULATION METHOD 07/15/2024 8:16 AM EST [facility] Blood Venous blood specimen / Unknown Venipuncture / Unknown 07/15/2024 6:56 AM EST 07/15/2024 7:52 AM EST us Kwesi Guido MD LAB BLOOD ORDERABLES F inal Result Performing Organization Address [facility] Co de Phone Number [facility] [address] [place] [address], * Magnesium (07/15/2024 6:56 AM EST) Magnesium 2.2 1.9 - 2.6 mg/dL LAB CHEMISTRY METHOD 07/15/2024 8:48 AM EST [facility] Blood Venous blood specimen / Unknown Venipuncture / Unknown 07/15/2024 6:56 AM EST 07/15/2024 7:52 AM EST us Kwesi Guido MD LAB BLOOD ORDERABLES F inal Result [facility] [address] [place] [address], * (ABNORMAL) Basic metabolic panel (07/15/2024 6:56 AM EST) Sodium 134 133 - 145 mmol/L LAB CHEMISTRY METHOD 07/15/2024 8:58 AM EST [facility] Potassium 3.8 3.5 - 5.5 mmol/L LAB CHEMISTRY METHOD 07/15/2024 8:58 AM [facility] Chloride 104 96 - 110 mmol/L LAB CHEMISTRY METHOD 07/15/2024 8:58 AM [facility] CO2 15(L) 21 - 32 mmol/L LAB CHEMISTRY METHOD 07/15/2024 8:58 AM [facility] Anion Gap 15(H) 3 - 11 LAB CHEMISTRY METHOD 07/15/2024 8:58 AM [facility] Glucose 82 70 - 100 mg/dL LAB CHEMISTRY METHOD 07/15/2024 8:58 AM [facility] BUN 95(H) 5 - 25 mg/dL LAB CHEMISTRY METHOD 07/15/2024 8:58 AM [facility] Creatinine 6.68(H) 0.50 - 1.10 mg/dL LAB CHEMISTRY METHOD 07/15/2024 8:58 AM [facility] eGFR 6(L) >=60 mL/min/1. 73m2 LAB CHEMISTRY METHOD 07/15/2024 8:58 AM [facility] Comment:Calculation based on the??Chronic Kidney Disease Epidemiology Collaboration (CKD-EPI) equation refit??without adjustment for race. BUN/Creatinine Ratio 14.2 LAB CHEMISTRY METHOD 07/15/2024 8:58 AM [facility] Calcium 8.3(L) 8.5 - 10.5 mg/dL LAB CHEMISTRY METHOD 07/15/2024 8:58 AM [facility] Blood Venous blood specimen / Unknown Venipuncture / Unknown 07/15/2024 6:56 AM EST 07/15/2024 7:52 AM EST us Kwesi Guido MD LAB BLOOD ORDERABLES F inal Result [facility] [address] [place] [address], [place] [phone] * (ABNORMAL) POCT Glucose, blood (07/14/2024 8:07 PM EST) Glucose POCT 122(H) 70 - 100 mg/dL 07/14/2024 8:07 PM EST [facility] Blood Capillary blood specimen / Unknown 07/14/2024 8:07 PM EST 07/14/2024 8:09 PM EST us Kwesi Guido MD LAB POINT OF C ARE TEST DOCKED DEVICE UNSOLICITED RESULTS Final Result Performing Organization Address [facility]/ZIP Co de Phone Number [facility] [address] [place] [address], [place] [phone] * (ABNORMAL) POCT Glucose, blood (07/14/2024 4:26 PM EST) Glucose POCT 152(H) 70 - 100 mg/dL 07/14/2024 4:27 PM EST [facility] Blood Capillary blood specimen / Unknown 07/14/2024 4:26 PM EST 07/14/2024 4:28 PM EST us Kwesi Guido MD LAB POINT OF C ARE TEST DOCKED DEVICE UNSOLICITED RESULTS Final Result Performing Organization Address City/[facility]/ZIP Co de Phone Number [facility] [address] [place] [address], [place] [phone] * POCT Glucose, blood (07/14/2024 11:32 AM EST) Glucose POCT 100 70 - 100 mg/dL 07/14/2024 11:37 AM EST [facility] Blood Capillary blood specimen / Unknown 07/14/2024 11:32 AM EST 07/14/2024 11:38 AM EST us Kwesi Guido MD LAB POINT OF ARE TEST DOCKED DEVICE UNSOLICITED RESULTS Final Result [facility] [address] [place] [address], [place] [phone] * POCT Glucose, blood (07/14/2024 8:19 AM EST) Glucose POCT 72 70 - 100 mg/dL 07/14/2024 8:38 AM EST [facility] Blood Capillary blood specimen / Unknown 07/14/2024 8:19 AM EST 07/14/2024 8:39 AM EST us Kwesi Guido MD LAB POINT OF ARE TEST DOCKED DEVICE UNSOLICITED RESULTS Final Result [facility] [address] [place] [address], [place] [phone] * Extractable Nuclear Antibodies Profile (07/14/2024 6:00 AM EST) SM Ab Negative Negative LAB CHEMISTRY METHOD 07/17/2024 12:29 PM EST [facility] SM Antibody Quant 2 <20 units LAB CHEMISTRY METHOD 07/17/2024 12:29 PM EST [facility] LEGAL ADMINISTRATOR Ab Negative Negative LAB CHEMISTRY METHOD 07/17/2024 12:29 PM EST [facility] LEGAL ADMINISTRATOR Antibody Quant 1 <20 units LAB CHEMISTRY METHOD 07/17/2024 12:29 PM EST [facility] Blood Venous blood specimen / Unknown 07/14/2024 6:00 AM EST 07/14/2024 6:35 AM EST us Kwesi Guido MD LAB BLOOD ORDERABLES F inal Result Performing Organization Address [facility]/ZIP Co de Phone Number [facility] [address] [place] [address], [place] [phone] * C4 complement (07/14/2024 6:00 AM EST) C4 Complement 18 16 - 47 mg/dL LAB CHEMISTRY METHOD 07/14/2024 11:20 AM EST [facility] Blood Venous blood specimen / Unknown 07/14/2024 6:00 AM EST 07/14/2024 6:35 AM EST us Kwesi Guido MD LAB BLOOD ORDERABLES F inal Result Performing Organization Address [facility] Co de Phone Number [facility] [address] [place] [address], [place] [phone] * (ABNORMAL) C3 complement (07/14/2024 6:00 AM EST) C3 Complement 78(L) 88 - 201 mg/dL LAB CHEMISTRY METHOD 07/14/2024 11:20 AM EST [facility] Blood Venous blood specimen / Unknown 07/14/2024 6:00 AM EST 07/14/2024 6:35 AM EST us Kwesi Guido MD LAB BLOOD ORDERABLES F inal Result Performing Organization Address [facility]/ZIP Co de Phone Number [facility] [address] [place] [address], [place] [phone] * (ABNORMAL) Anti-neutrophilic cytoplasmic antibody (07/14/2024 6:00 AM EST) [facility] Myeloperoxidase Ab Negative Negative LAB CHEMISTRY METHOD 07/20/2024 12:10 PM EST [facility] Myeloperoxidase Ab, Quant 2 <=20 units LAB CHEMISTRY METHOD 07/20/2024 12:10 PM [facility] Proteinase-3 Ab Positive(A ) Negative LAB CHEMISTRY METHOD 07/20/2024 12:10 PM [facility] Proteinase-3 Ab Quant 162(H) <=20 units LAB CHEMISTRY METHOD 07/20/2024 12:10 PM [facility] Blood Venous blood specimen / Unknown 07/14/2024 6:00 AM EST 07/14/2024 6:35 AM EST Kwesi Guido MD LAB BLOOD ORDERABLES F inal Result [facility] [address] [place] [address], * (ABNORMAL) CBC auto differential (07/14/2024 6:00 AM EST) [facility] WBC 19.8(H) 4.8 - 10.8 K/mcL LAB HEMETOLOGY METHOD 07/14/2024 6:56 AM [facility] RBC 2.90(L) 3.80 - 4.80 M/mcL LAB HEMETOLOGY METHOD 07/14/2024 6:56 AM [facility] Hemoglobin 7.0(L) 11.5 - 16.0 g/dL LAB HEMETOLOGY METHOD 07/14/2024 6:56 AM [facility] Hematocrit 21.8(L) 35.0 - 47.0 % LAB HEMETOLOGY METHOD 07/14/2024 6:56 AM [facility] MCV 75.7(L) 79.0 - 98.0 FL LAB HEMETOLOGY METHOD 07/14/2024 6:56 AM [facility] MCH 24.3(L) 27.0 - 32.0 pcg LAB HEMETOLOGY METHOD 07/14/2024 6:56 AM [facility] MCHC 32.1 32.0 - 37.0 g/dL LAB HEMETOLOGY METHOD 07/14/2024 6:56 AM [facility] RDW 21.6(H) 11.0 - 15.0 % LAB HEMETOLOGY METHOD 07/14/2024 6:56 AM [facility] Platelets 193 130 - 400 K/mcL LAB HEMETOLOGY METHOD 07/14/2024 6:56 AM [facility] MPV 9.9 7.0 - 11.0 FL LAB HEMETOLOGY METHOD 07/14/2024 6:56 AM [facility] NRBC 0.0 <1.0 % LAB HEMETOLOGY METHOD 07/14/2024 6:56 AM [facility] NRBC Absolute 0.00 <0.10 K/mcL LAB HEMETOLOGY METHOD 07/14/2024 6:56 AM [facility] Neutrophils Relative 85.1 % LAB HEMETOLOGY METHOD 07/14/2024 6:56 AM [facility] Lymphocytes Relative 3.7 % LAB HEMETOLOGY METHOD 07/14/2024 6:56 AM [facility] Monocytes Relative 6.1 % LAB HEMETOLOGY METHOD 07/14/2024 6:56 AM [facility] Eosinophils Relative 2.5 % LAB HEMETOLOGY METHOD 07/14/2024 6:56 AM [facility] Basophils Relative 0.2 % LAB HEMETOLOGY METHOD 07/14/2024 6:56 AM [facility] Immature Granulocytes Relative 2.4 % LAB HEMETOLOGY METHOD 07/14/2024 6:56 AM EST [facility] Neutrophils Absolute 16.82(H) 1.50 - 7.00 K/[facility] LAB HEMETOLOGY METHOD 07/14/2024 6:56 AM EST [facility] Lymphocytes Absolute 0.74(L) 1.00 - 5.00 K/mcL LAB HEMETOLOGY METHOD 07/14/2024 6:56 AM EST [facility] Monocytes Absolute 1.20(H) 0.20 - 1.00 K/mcL LAB HEMETOLOGY METHOD 07/14/2024 6:56 AM EST [facility] Eosinophils Absolute 0.50 0.00 - 0.50 K/[facility] LAB HEMETOLOGY METHOD 07/14/2024 6:56 AM [facility] Basophils Absolute 0.04 0.00 - 0.20 K/mcL LAB HEMETOLOGY METHOD 07/14/2024 6:56 AM EST [facility] Immature Granulocytes Absolute 0.48(H) 0.00 - 0.03 K/mcL LAB HEMETOLOGY METHOD 07/14/2024 6:56 AM EST [facility] Blood Venous blood specimen / Unknown 07/14/2024 6:00 AM EST 07/14/2024 6:36 AM EST Kwesi Guido MD LAB BLOOD ORDERABLES F inal Result [facility] [address] [place] [address], * Magnesium (07/14/2024 6:00 AM EST) Magnesium 2.0 1.9 - 2.6 mg/dL LAB CHEMISTRY METHOD 07/14/2024 7:23 AM EST [facility] Blood Venous blood specimen / Unknown 07/14/2024 6:00 AM EST 07/14/2024 6:35 AM EST us Kwesi Guido MD LAB BLOOD ORDERABLES F inal Result [facility] [address] [place] [address], * (ABNORMAL) Basic metabolic panel (07/14/2024 6:00 AM EST) Sodium 132(L) 133 - 145 mmol/L LAB CHEMISTRY METHOD 07/14/2024 7:38 AM [facility] Potassium 3.4(L) 3.5 - 5.5 mmol/L LAB CHEMISTRY METHOD 07/14/2024 7:38 AM [facility] Chloride 104 96 - 110 mmol/L LAB CHEMISTRY METHOD 07/14/2024 7:38 AM [facility] CO2 18(L) 21 - 32 mmol/L LAB CHEMISTRY METHOD 07/14/2024 7:38 AM [facility] Anion Gap 10 3 - 11 LAB CHEMISTRY METHOD 07/14/2024 7:38 AM [facility] Glucose 69(L) 70 - 100 mg/dL LAB CHEMISTRY METHOD 07/14/2024 7:38 AM [facility] BUN 84(H) 5 - 25 mg/dL LAB CHEMISTRY METHOD 07/14/2024 7:38 AM [facility] Creatinine 5.84(H) 0.50 - 1.10 mg/dL LAB CHEMISTRY METHOD 07/14/2024 7:38 AM [facility] eGFR 7(L) >=60 mL/min/1. 73m2 LAB CHEMISTRY METHOD 07/14/2024 7:38 AM [facility] Comment:Calculation based on the??Chronic Kidney Disease Epidemiology Collaboration (CKD-EPI) equation refit??without adjustment for race. BUN/Creatinine Ratio 14.4 LAB CHEMISTRY METHOD 07/14/2024 7:38 AM EST [facility] Calcium 8.2(L) 8.5 - 10.5 mg/dL LAB CHEMISTRY METHOD 07/14/2024 7:38 AM EST [facility] Blood Venous blood specimen / Unknown 07/14/2024 6:00 AM EST 07/14/2024 6:35 AM EST us Kwesi Guido MD LAB BLOOD ORDERABLES F inal Result Performing Organization Address [facility]/ZIP Co de Phone Number [facility] [address] [place] [address], [place] [phone] * (ABNORMAL) POCT Glucose, blood (07/13/2024 8:53 PM EST) Glucose POCT 153(H) 70 - 100 mg/dL 07/13/2024 8:55 PM EST [facility] Blood Capillary blood specimen / Unknown 07/13/2024 8:53 PM EST 07/13/2024 8:56 PM EST us Kwesi Guido MD LAB POINT OF C ARE TEST DOCKED DEVICE UNSOLICITED RESULTS Final Result Performing Organization Address [facility]/ZIP Co de Phone Number [facility] [address] [place] [address], [place] [phone] * Transfuse RBC (07/13/2024 7:03 PM EST) us Kwesi Guido MD BLOOD TRANSFUSION ORDE RABDIEGO Final Result * Transfuse RBC: 1 Units (07/13/2024 7:03 PM EST) us Kwesi Guido MD BLOOD TRANSFUSION ORDE RABLES Final Result * (ABNORMAL) POCT Glucose, blood (07/13/2024 3:53 PM EST) Glucose POCT 115(H) 70 - 100 mg/dL 07/13/2024 3:56 PM EST [facility] Blood Capillary blood specimen / Unknown 07/13/2024 3:53 PM EST 07/13/2024 3:57 PM EST us Kwesi Guido MD LAB POINT OF C ARE TEST DOCKED DEVICE UNSOLICITED RESULTS Final Result Performing Organization Address City/[facility]/ZIP Co de Phone Number [facility] [address] [place] [address], [place] [phone] * (ABNORMAL) POCT Glucose, blood (07/13/2024 10:58 AM EST) [facility] Glucose POCT 106(H) 70 - 100 mg/dL 07/13/2024 10:58 AM EST [facility] Blood Capillary blood specimen / Unknown 07/13/2024 10:58 AM EST 07/13/2024 10:59 AM EST us Kwesi Guido MD LAB POINT OF C ARE TEST DOCKED DEVICE UNSOLICITED RESULTS Final Result Performing Organization Address [facility] Co de Phone Number [facility] [address] [place] [address], [place] [phone] * Prepare RBC: 1 Units (07/13/2024 10:44 AM EST) Product Code [id number] 07/13/2024 12:34 PM EST [facility] Unit Number [id number] 07/13/19 12:34 PM [facility] Crossmatch Compatible 07/13/2024 11:06 AM EST [facility] Dispense Status Transfused 07/13/2024 12:34 PM EST [facility] Unit ABO Rh OPOS 07/13/2024 12:34 PM EST [facility] Unit Expiration Date Time [id number] 07/13/2024 12:34 PM EST [facility] Unit Blood Type 5100 07/13/2024 12:34 PM [facility] Blood Venous blood specimen / Unknown 07/13/2024 10:44 AM EST 07/13/2024 8:32 AM EST us Kwesi Guido MD BLOOD BANK PRODUCT ORD ERABLES Final Result [facility] [address] [place] [address], [place] [phone] * Type and screen (07/13/2024 8:24 AM EST) ABO Group O 07/13/2024 10:29 AM EST [facility] Rh Type Positive 07/13/2024 10:29 AM EST [facility] Antibody Screen Negative 07/13/2024 10:29 AM EST [facility] Blood Venous blood specimen / Unknown Venipuncture / Unknown 07/13/2024 8:24 AM EST 07/13/2024 8:32 AM EST us Kwesi Guido MD LAB BLOOD BANK TEST OR DERABLES Final Result [facility] [address] [place] [address], [place] [phone] * POCT Glucose, blood (07/13/2024 8:13 AM EST) Glucose POCT 87 70 - 100 mg/dL 07/13/2024 8:20 AM EST [facility] Blood Capillary blood specimen / Unknown 07/13/2024 8:13 AM EST 07/13/2024 8:21 AM EST us Kwesi Guido MD LAB POINT OF C ARE TEST DOCKED DEVICE UNSOLICITED RESULTS Final Result [facility] [address] [place] [address], [place] [phone] * (ABNORMAL) CBC auto differential (07/13/2024 6:38 AM EST) WBC 20.6(H) 4.8 - 10.8 K/mcL LAB HEMETOLOGY METHOD 07/13/2024 7:14 AM [facility] RBC 2.70(L) 3.80 - 4.80 M/mcL LAB HEMETOLOGY METHOD 07/13/2024 7:14 AM [facility] Hemoglobin 6.5(L) 11.5 - 16.0 g/dL LAB HEMETOLOGY METHOD 07/13/2024 7:14 AM [facility] Hematocrit 20.3(L) 35.0 - 47.0 % LAB HEMETOLOGY METHOD 07/13/2024 7:14 AM [facility] MCV 74.4(L) 79.0 - 98.0 FL LAB HEMETOLOGY METHOD 07/13/2024 7:14 AM [facility] MCH 23.8(L) 27.0 - 32.0 pcg LAB HEMETOLOGY METHOD 07/13/2024 7:14 AM [facility] MCHC 32.0 32.0 - 37.0 g/dL LAB HEMETOLOGY METHOD 07/13/2024 7:14 AM [facility] RDW 21.4(H) 11.0 - 15.0 % LAB HEMETOLOGY METHOD 07/13/2024 7:14 AM [facility] Platelets 199 130 - 400 K/mcL LAB HEMETOLOGY METHOD 07/13/2024 7:14 AM [facility] MPV 9.9 7.0 - 11.0 FL LAB HEMETOLOGY METHOD 07/13/2024 7:14 AM [facility] NRBC 0.0 <1.0 % LAB HEMETOLOGY METHOD 07/13/2024 7:14 AM [facility] NRBC Absolute 0.00 <0.10 K/mcL LAB HEMETOLOGY METHOD 07/13/2024 7:14 AM [facility] Neutrophils Relative 84.4 % LAB HEMETOLOGY METHOD 07/13/2024 7:14 AM [facility] Lymphocytes Relative 3.9 % LAB HEMETOLOGY METHOD 07/13/2024 7:14 AM [facility] Monocytes Relative 6.3 % LAB HEMETOLOGY METHOD 07/13/2024 7:14 AM [facility] Eosinophils Relative 3.3 % LAB HEMETOLOGY METHOD 07/13/2024 7:14 AM [facility] Basophils Relative 0.1 % LAB HEMETOLOGY METHOD 07/13/2024 7:14 AM [facility] Immature Granulocytes Relative 2.0 % LAB HEMETOLOGY METHOD 07/13/2024 7:14 AM [facility] Neutrophils Absolute 17.36(H) 1.50 - 7.00 K/mcL LAB HEMETOLOGY METHOD 07/13/2024 7:14 AM [facility] Lymphocytes Absolute 0.81(L) 1.00 - 5.00 K/mcL LAB HEMETOLOGY METHOD 07/13/2024 7:14 AM [facility] Monocytes Absolute 1.30(H) 0.20 - 1.00 K/mcL LAB HEMETOLOGY METHOD 07/13/2024 7:14 AM [facility] Eosinophils Absolute 0.67(H) 0.00 - 0.50 K/mcL LAB HEMETOLOGY METHOD 07/13/2024 7:14 AM EST [facility] Basophils Absolute 0.03 0.00 - 0.20 K/[facility] LAB HEMETOLOGY METHOD 07/13/2024 7:14 AM EST [facility] Immature Granulocytes Absolute 0.41(H) 0.00 - 0.03 K/[facility] LAB HEMETOLOGY METHOD 07/13/2024 7:14 AM EST [facility] Blood Venous blood specimen / Unknown Venipuncture / Unknown 07/13/2024 6:38 AM EST 07/13/2024 6:51 AM EST us Kwesi Guido MD LAB BLOOD ORDERABLES F inal Result Performing Organization Address City/[facility]/ZIP Co de Phone Number [facility] [address] [place] [address], * Phosphorus (07/13/2024 6:38 AM EST) Phosphorus 3.0 2.5 - 4.5 mg/dL LAB CHEMISTRY METHOD 07/13/2024 7:44 AM EST [facility] Blood Venous blood specimen / Unknown Venipuncture / Unknown 07/13/2024 6:38 AM EST 07/13/2024 6:50 AM EST us Kwesi Guido MD LAB BLOOD ORDERABLES F inal Result [facility] [address] [place] [address], [place] [phone] * Magnesium (07/13/2024 6:38 AM EST) Magnesium 1.9 1.9 - 2.6 mg/dL LAB CHEMISTRY METHOD 07/13/2024 7:44 AM EST [facility] Blood Venous blood specimen / Unknown Venipuncture / Unknown 07/13/2024 6:38 AM EST 07/13/2024 6:50 AM EST Kwesi Guido MD LAB BLOOD ORDERABLES F inal Result [facility] [address] [place] [address], * (ABNORMAL) Basic metabolic panel (07/13/2024 6:38 AM EST) Sodium 132(L) 133 - 145 mmol/L LAB CHEMISTRY METHOD 07/13/2024 7:57 AM [facility] Potassium 3.6 3.5 - 5.5 mmol/L LAB CHEMISTRY METHOD 07/13/2024 7:57 AM [facility] Chloride 104 96 - 110 mmol/L LAB CHEMISTRY METHOD 07/13/2024 7:57 AM [facility] CO2 18(L) 21 - 32 mmol/L LAB CHEMISTRY METHOD 07/13/2024 7:57 AM [facility] Anion Gap 10 3 - 11 LAB CHEMISTRY METHOD 07/13/2024 7:57 AM [facility] Glucose 71 70 - 100 mg/dL LAB CHEMISTRY METHOD 07/13/2024 7:57 AM [facility] BUN 73(H) 5 - 25 mg/dL LAB CHEMISTRY METHOD 07/13/2024 7:57 AM [facility] Creatinine 5.13(H) 0.50 - 1.10 mg/dL LAB CHEMISTRY METHOD 07/13/2024 7:57 AM [facility] eGFR 8(L) >=60 mL/min/1. 73m2 LAB CHEMISTRY METHOD 07/13/2024 7:57 AM [facility] Comment:Calculation based on the??Chronic Kidney Disease Epidemiology Collaboration (CKD-EPI) equation refit??without adjustment for race. BUN/Creatinine Ratio 14.2 LAB CHEMISTRY METHOD 07/13/2024 7:57 AM EST [facility] Calcium 8.1(L) 8.5 - 10.5 mg/dL LAB CHEMISTRY METHOD 07/13/2024 7:57 AM EST [facility] Blood Venous blood specimen / Unknown Venipuncture / Unknown 07/13/2024 6:38 AM EST 07/13/2024 6:50 AM EST us Kwesi Guido MD LAB BLOOD ORDERABLES F inal Result [facility] [address] [place] [address], [place] [phone] * Uric acid (07/13/2024 6:38 AM EST) Uric Acid 7.5 3.1 - 7.8 mg/dL LAB CHEMISTRY METHOD 07/13/2024 7:44 AM EST [facility] Blood Venous blood specimen / Unknown Venipuncture / Unknown 07/13/2024 6:38 AM EST 07/13/2024 6:50 AM EST us Chencho Wayne MD LAB BLOOD ORDERABLES Final Resu lt [facility] [address] [place] [address], [place] [phone] * (ABNORMAL) Sedimentation rate (07/13/2024 6:38 AM EST) Sed Rate 84(H) 0 - 30 mm/hr LAB HEMETOLOGY METHOD 07/13/2024 7:32 AM EST [facility] Blood Venous blood specimen / Unknown Venipuncture / Unknown 07/13/2024 6:38 AM EST 07/13/2024 6:51 AM EST us Kwesi Guido MD LAB BLOOD ORDERABLES F inal Result Performing Organization Address City[facility]/ZIP Co de Phone Number [facility] [address] [place] [address], [place] [phone] * (ABNORMAL) POCT Glucose, blood (07/12/2024 8:06 PM EST) Glucose POCT 125(H) 70 - 100 mg/dL 07/12/2024 8:08 PM EST [facility] Blood Capillary blood specimen / Unknown 07/12/2024 8:06 PM EST 07/12/2024 8:09 PM EST us Kwesi Guido MD LAB POINT OF C ARE TEST DOCKED DEVICE UNSOLICITED RESULTS Final Result Performing Organization Address [facility]/ZIP Co de Phone Number [facility] [address] [place] [address], [place] [phone] * (ABNORMAL) POCT Glucose, blood (07/12/2024 3:53 PM EST) [facility] Signature Glucose POCT 143(H) 70 - 100 mg/dL 07/12/2024 3:57 PM EST [facility] Blood Capillary blood specimen / Unknown 07/12/2024 3:53 PM EST 07/12/2024 3:59 PM EST us Kwesi Guido MD LAB POINT OF C ARE TEST DOCKED DEVICE UNSOLICITED RESULTS Final Result Performing Organization Address [facility]/ZIP Co de Phone Number [facility] [address] [place] [address], [place] [phone] * (ABNORMAL) Protein and creatinine with ratio, urine (07/12/2024 3:27 PM EST) Protein, Urine 192 mg/dL LAB CHEMISTRY METHOD 07/12/2024 6:44 PM EST [facility] Prot/Creat, Ur 3.00(H) <=0.20 mg/mg creat LAB CHEMISTRY METHOD 07/12/2024 6:44 PM EST [facility] Creatinine, Urine 64.0 mg/dL LAB CHEMISTRY METHOD 07/12/2024 6:44 PM [facility] Urine Urine specimen obtained by clean catch procedure / Unknown Non-blood Collection / Unknown 07/12/2024 3:27 PM EST 07/12/2024 4:10 PM EST us Chencho Wayne MD LAB URINE ORDERABLES Final Resu lt [facility] [address] [place] [address], [place] [phone] * Creatinine, urine, random (07/12/2024 3:27 PM EST) Creatinine, Urine 64.0 mg/dL LAB CHEMISTRY METHOD 07/12/2024 4:41 PM EST [facility] Urine Urine specimen from urethra / Unknown Non-blood Collection / Unknown 07/12/2024 3:27 PM EST 07/12/2024 4:11 PM EST us Chencho Wayne MD LAB URINE ORDERABLES Final Resu lt [facility] [address] [place] [address], [place] [phone] * Sodium, urine, random (07/12/2024 3:27 PM EST) Sodium, Ur 34 mmol/L LAB CHEMISTRY METHOD 07/12/2024 6:44 PM EST [facility] Urine Urine specimen obtained by clean catch procedure / Unknown Non-blood Collection / Unknown 07/12/2024 3:27 PM EST 07/12/2024 4:10 PM EST Aye HEDRICK LAB URINE ORDERABLES Final Re sult Performing Organization Address City[facility]/ZIP Co de Phone Number [facility] [address] [place] [address], [place] [phone] * Osmolality, urine (07/12/2024 3:27 PM EST) Osmolality, Urine 397 300 - 1,300 mOsm/kg LAB CHEMISTRY METHOD 07/12/2024 5:57 PM EST [facility] Urine Urine specimen obtained by clean catch procedure / Unknown Non-blood Collection / Unknown 07/12/2024 3:27 PM EST 07/12/2024 4:10 PM EST Aye HEDRICK LAB URINE ORDERABLES Final Re sult Performing Organization Address [facility] Co de Phone Number [facility] [address] [place] [address], [place] [phone] * CT Chest wo Contrast (07/12/2024 12:48 PM EST) Anatomical Region Laterality Modality Body Computed Tomogra phy 07/12/2024 1:07 PM EST Impressions 07/12/2024 1:19 PM EST Impression: 1. No significant change in an irregular juxtapleural nodular opacity in the right lung apex. Malignancy is not excluded. 2. No developing lymphadenopathy. 3. Small bilateral pleural effusions, new. Telerad RYLEY ([id number]) -------- FINAL REPORT -------- Dictated By: Edilia Durbin Dictated Date: 07/12/2024 13:07 ET Assigned Physician: Edilia Durbin Reviewed and Electronically Signed By: Edilia Durbin Signed Date: 07/12/2024 13:19 ET Workstation ID: [id number] Transcribed By: Self Edit Transcribed Date: 07/12/2024 13:07 ET Narrative 07/12/2024 1:19 PM EST History: Abnormal chest radiograph. The patient underwent nondiagnostic CT- guided biopsy of the right apical lung nodule on 05/23/24. Comparison: Thoracic CT 06/17/24, 03/21/24 Technique: Helical volumetric imaging of the thorax was performed without IV contrast. DLP: 613.10 mGy/cm GE CancerIQpeed VCT Iterative reconstruction technique Findings: Respiratory motion artifact limits evaluation of the lungs, particularly the lower lobes. There is persistent irregular juxtapleural nodular opacity in the right lung apex which measures approximately 6 x 3 x 3 cm on the reformatted images, without significant change in appearance to the most recent study. A long, thin strand extends from the lesion caudally to the major fissure. No bone destruction is identified. Juxtapleural opacity in the left apex is minimal and unchanged, possibly scarring. There is minimal dependent atelectasis in both lower lobes. The trachea and central bronchial tree remain patent. Diffuse bronchial wall thickening is present, worst in the right upper lobe. Small bilateral pleural effusions layer dependently, new. No pericardial effusion is identified. Mild multichamber cardiomegaly is again seen, with severe, three-vessel coronary artery calcification. No mediastinal lymphadenopathy is seen. Evaluation of the brennen is limited in the absence of IV contrast. A small portion of the upper abdomen included on the lowest images through the thorax is without significant abnormality. No suspicious osseous lesion is seen. Procedure Note Edilia Durbin MD - 07/12/2024 History: Abnormal chest radiograph. The patient underwent nondiagnosticCT-guided biopsy of the right apical lung nodule on 05/23/24. Comparison: Thoracic CT 06/17/24, 03/21/24 Technique: Helical volumetric imaging of the thorax was performed withoutIV contrast. DLP: 613.10 mGy/cm GE [email or web address] VCT Iterative reconstruction technique Findings: Respiratory motion artifact limits evaluation of the lungs, particularlythe lower lobes. There is persistent irregular juxtapleural nodular opacity in the rightlung apex which measures approximately 6 x 3 x 3 cm on the reformattedimages, without significant change in appearance to the most recent study.A long, thin strand extends from the lesion caudally to the major fissure.No bone destruction is identified. Juxtapleural opacity in the left apex is minimal and unchanged, possiblyscarring. There is minimal dependent atelectasis in both lower lobes. The trachea and central bronchial tree remain patent. Diffuse bronchialwall thickening is present, worst in the right upper lobe. Small bilateral pleural effusions layer dependently, new. No pericardialeffusion is identified. Mild multichamber cardiomegaly is again seen, with severe, three-vesselcoronary artery calcification. No mediastinal lymphadenopathy is seen. Evaluation of the brennen is limitedin the absence of IV contrast. A small portion of the upper abdomen included on the lowest images throughthe thorax is without significant abnormality. No suspicious osseous lesion is seen. IMPRESSION: Impression: 1. No significant change in an irregular juxtapleural nodular opacity inthe right lung apex. Malignancy is not excluded. 2. No developing lymphadenopathy. 3. Small bilateral pleural effusions, new. Teleradha HEDRICK ([id number]) -------- FINAL REPORT -------- Dictated By: Edilia Durbin Dictated Date: 07/12/2024 13:07 ET Assigned Physician: Edilia Durbin Reviewed and Electronically Signed By: Edilia Durbin Signed Date: 07/12/2024 13:19 ET Workstation ID: [id number] Transcribed By: Self Edit Transcribed Date: 07/12/2024 13:07 ET us Kwesi Guido MD IMG CT PROCEDURES [place] Result * (ABNORMAL) POCT Glucose, blood (07/12/2024 11:48 AM EST) Glucose POCT 176(H) 70 - 100 mg/dL 07/12/2024 11:49 AM EST [facility] Blood Capillary blood specimen / Unknown 07/12/2024 11:48 AM EST 07/12/2024 11:50 AM EST us Kwesi Guido MD LAB POINT OF C ARE TEST DOCKED DEVICE UNSOLICITED RESULTS Final Result [facility] [address] [place] [address], [place] [phone] * (ABNORMAL) POCT Glucose, blood (07/12/2024 8:07 AM EST) [facility] Glucose POCT 166(H) 70 - 100 mg/dL 07/12/2024 8:31 AM EST [facility] Blood Capillary blood specimen / Unknown 07/12/2024 8:07 AM EST 07/12/2024 8:32 AM EST us Kwesi Guido MD LAB POINT OF C ARE TEST DOCKED DEVICE UNSOLICITED RESULTS Final Result [facility] [address] [place] [address], [place] [phone] * (ABNORMAL) Lipase (07/12/2024 6:19 AM EST) [facility] Lipase <10(L) 13 - 75 unit/L LAB CHEMISTRY METHOD 07/12/2024 3:26 PM EST [facility] Blood Venous blood specimen / Unknown Venipuncture / Unknown 07/12/2024 6:19 AM EST 07/12/2024 6:56 AM EST us Kwesi Guido MD LAB BLOOD ORDERABLES F inal Result [facility] [address] [place] [address], [place] [phone] * (ABNORMAL) Hepatic function panel (07/12/2024 6:19 AM EST) [facility] Total Protein 4.9(L) 6.0 - 8.0 g/dL LAB CHEMISTRY METHOD 07/12/2024 3:26 PM EST [facility] Albumin 1.5(L) 3.2 - 5.0 g/dL LAB CHEMISTRY METHOD 07/12/2024 3:26 PM EST [facility] Total Bilirubin 0.5 0.0 - 1.4 mg/dL LAB CHEMISTRY METHOD 07/12/2024 3:26 PM [facility] Bilirubin, Direct 0.2 0.0 - 0.3 mg/dL LAB CHEMISTRY METHOD 07/12/2024 3:26 PM [facility] Bilirubin, Indirect 0.3 0.0 - 1.1 mg/dL LAB CHEMISTRY METHOD 07/12/2024 3:26 PM [facility] ALT (SGPT) 37 10 - 60 unit/L LAB CHEMISTRY METHOD 07/12/2024 3:26 PM [facility] AST (SGOT) 32 10 - 42 unit/L LAB CHEMISTRY METHOD 07/12/2024 3:26 PM [facility] Alkaline Phosphatase 157(H) 42 - 121 unit/L LAB CHEMISTRY METHOD 07/12/2024 3:26 PM [facility] Blood Venous blood specimen / Unknown Venipuncture / Unknown 07/12/2024 6:19 AM EST 07/12/2024 6:56 AM EST Kwesi Guido MD LAB BLOOD ORDERABLES F inal Result [facility] [address] [place] [address], * (ABNORMAL) Procalcitonin (07/12/2024 6:19 AM EST) Procalcitonin 3.11(H) <=0.16 ng/mL LAB CHEMISTRY METHOD 07/12/2024 12:23 PM [facility] Blood Venous blood specimen / Unknown Venipuncture / Unknown 07/12/2024 6:19 AM EST 07/12/2024 6:56 AM EST [facility] - 07/12/2024 12:23 PM EST Procalcitonin > 2.00 ng/ml: Procalcitonin Levels above 2.00 ng/ml, on the first day of ICU admission represent a high risk for progression to severe sepsis and/or septic shock. Procalcitonin < 0.50 ng/ml: Procalcitonin levels below 0.50 ng/ml on the first day of ICU admission represent a low risk for progression to severe sepsis and/or septic shock. Concentrations <0.5 ng/mL do not exclude an infection, on account of local ized infections (without systemic signs) which can be associated with such low concentrations, or a systemic infection in its initial stages (<6 hours). Furthermore, increased procalcitonin can occur without infection. PCT concentrations between 0.5 and 2.0 ng/mL should be interpreted taking into account the patient's history. It is recommended to retest PCT within 6-24 hours if any concentrations <2.0 ng/mL are obtained. us Kwesi Guido MD LAB BLOOD ORDERABLES F inal Result Performing Organization Address City/[facility]/ZIP Co de Phone Number [facility] [address] [place] [address], [place] [phone] * (ABNORMAL) C-reactive protein (07/12/2024 6:19 AM EST) [facility] C-Reactive Protein 16.60(H) <=0.50 mg/dL LAB CHEMISTRY METHOD 07/12/2024 10:35 AM EST [facility] Blood Venous blood specimen / Unknown Venipuncture / Unknown 07/12/2024 6:19 AM EST 07/12/2024 6:56 AM EST us Kwesi Guido MD LAB BLOOD ORDERABLES F inal Result Performing Organization Address City[facility]/ZIP Co de Phone Number [facility] [address] [place] [address], [place] [phone] * (ABNORMAL) CBC auto differential (07/12/2024 6:19 AM EST) [facility] WBC 21.8(H) 4.8 - 10.8 K/mcL LAB HEMETOLOGY METHOD 07/12/2024 7:08 AM [facility] RBC 3.10(L) 3.80 - 4.80 M/mcL LAB HEMETOLOGY METHOD 07/12/2024 7:08 AM [facility] Hemoglobin 7.2(L) 11.5 - 16.0 g/dL LAB HEMETOLOGY METHOD 07/12/2024 7:08 AM [facility] Hematocrit 22.6(L) 35.0 - 47.0 % LAB HEMETOLOGY METHOD 07/12/2024 7:08 AM [facility] MCV 74.1(L) 79.0 - 98.0 FL LAB HEMETOLOGY METHOD 07/12/2024 7:08 AM [facility] MCH 23.6(L) 27.0 - 32.0 pcg LAB HEMETOLOGY METHOD 07/12/2024 7:08 AM [facility] MCHC 31.9(L) 32.0 - 37.0 g/dL LAB HEMETOLOGY METHOD 07/12/2024 7:08 AM [facility] RDW 21.0(H) 11.0 - 15.0 % LAB HEMETOLOGY METHOD 07/12/2024 7:08 AM [facility] Platelets 206 130 - 400 K/mcL LAB HEMETOLOGY METHOD 07/12/2024 7:08 AM [facility] MPV 9.6 7.0 - 11.0 FL LAB HEMETOLOGY METHOD 07/12/2024 7:08 AM [facility] NRBC 0.0 <1.0 % LAB HEMETOLOGY METHOD 07/12/2024 7:08 AM [facility] NRBC Absolute 0.00 <0.10 K/mcL LAB HEMETOLOGY METHOD 07/12/2024 7:08 AM [facility] Neutrophils Relative 86.5 % LAB HEMETOLOGY METHOD 07/12/2024 7:08 AM [facility] Lymphocytes Relative 2.7 % LAB HEMETOLOGY METHOD 07/12/2024 7:08 AM [facility] Monocytes Relative 5.8 % LAB HEMETOLOGY METHOD 07/12/2024 7:08 AM [facility] Eosinophils Relative 2.8 % LAB HEMETOLOGY METHOD 07/12/2024 7:08 AM [facility] Basophils Relative 0.2 % LAB HEMETOLOGY METHOD 07/12/2024 7:08 AM [facility] Immature Granulocytes Relative 2.0 % LAB HEMETOLOGY METHOD 07/12/2024 7:08 AM [facility] Neutrophils Absolute 18.89(H) 1.50 - 7.00 K/mcL LAB HEMETOLOGY METHOD 07/12/2024 7:08 AM [facility] Lymphocytes Absolute 0.59(L) 1.00 - 5.00 K/mcL LAB HEMETOLOGY METHOD 07/12/2024 7:08 AM [facility] Monocytes Absolute 1.27(H) 0.20 - 1.00 K/mcL LAB HEMETOLOGY METHOD 07/12/2024 7:08 AM [facility] Eosinophils Absolute 0.62(H) 0.00 - 0.50 K/mcL LAB HEMETOLOGY METHOD 07/12/2024 7:08 AM [facility] Basophils Absolute 0.04 0.00 - 0.20 K/mcL LAB HEMETOLOGY METHOD 07/12/2024 7:08 AM [facility] Immature Granulocytes Absolute 0.43(H) 0.00 - 0.03 K/mcL LAB HEMETOLOGY METHOD 07/12/2024 7:08 AM [facility] Blood Venous blood specimen / Unknown Venipuncture / Unknown 07/12/2024 6:19 AM EST 07/12/2024 6:58 AM EST us Kwesi Guido MD LAB BLOOD ORDERABLES F inal Result Performing Organization Address City/[facility]/ZIP Co de Phone Number [facility] [address] [place] [address], [place] [phone] * Phosphorus (07/12/2024 6:19 AM EST) Phosphorus 2.9 2.5 - 4.5 mg/dL LAB CHEMISTRY METHOD 07/12/2024 7:48 AM EST [facility] Blood Venous blood specimen / Unknown Venipuncture / Unknown 07/12/2024 6:19 AM EST 07/12/2024 6:56 AM EST us Kwesi Guido MD LAB BLOOD ORDERABLES F inal Result Performing Organization Address [facility] Co de Phone Number [facility] [address] [place] [address], [place] [phone] * (ABNORMAL) Magnesium (07/12/2024 6:19 AM EST) Magnesium 1.8(L) 1.9 - 2.6 mg/dL LAB CHEMISTRY METHOD 07/12/2024 7:48 AM EST [facility] Blood Venous blood specimen / Unknown Venipuncture / Unknown 07/12/2024 6:19 AM EST 07/12/2024 6:56 AM EST us Kwesi Guido MD LAB BLOOD ORDERABLES F inal Result Performing Organization Address City/[facility]/ZIP Co de Phone Number [facility] [address] [place] [address], [place] [phone] * (ABNORMAL) Basic metabolic panel (07/12/2024 6:19 AM EST) Sodium 132(L) 133 - 145 mmol/L LAB CHEMISTRY METHOD 07/12/2024 7:49 AM [facility] Potassium 3.7 3.5 - 5.5 mmol/L LAB CHEMISTRY METHOD 07/12/2024 7:49 AM [facility] Chloride 102 96 - 110 mmol/L LAB CHEMISTRY METHOD 07/12/2024 7:49 AM [facility] CO2 18(L) 21 - 32 mmol/L LAB CHEMISTRY METHOD 07/12/2024 7:49 AM [facility] Anion Gap 12(H) 3 - 11 LAB CHEMISTRY METHOD 07/12/2024 7:49 AM [facility] Glucose 132(H) 70 - 100 mg/dL LAB CHEMISTRY METHOD 07/12/2024 7:49 AM [facility] BUN 70(H) 5 - 25 mg/dL LAB CHEMISTRY METHOD 07/12/2024 7:49 AM [facility] Creatinine 4.64(H) 0.50 - 1.10 mg/dL LAB CHEMISTRY METHOD 07/12/2024 7:49 AM [facility] eGFR 9(L) >=60 mL/min/1. 73m2 LAB CHEMISTRY METHOD 07/12/2024 7:49 AM [facility] Comment:Calculation based on the??Chronic Kidney Disease Epidemiology Collaboration (CKD-EPI) equation refit??without adjustment for race. BUN/Creatinine Ratio 15.1 LAB CHEMISTRY METHOD 07/12/2024 7:49 AM [facility] Calcium 8.1(L) 8.5 - 10.5 mg/dL LAB CHEMISTRY METHOD 07/12/2024 7:49 AM [facility] Blood Venous blood specimen / Unknown Venipuncture / Unknown 07/12/2024 6:19 AM EST 07/12/2024 6:56 AM EST us Kwesi Guido MD LAB BLOOD ORDERABLES F inal Result [facility] [address] [place] [address], [place] [phone] * (ABNORMAL) POCT Glucose, blood (07/11/2024 8:03 PM EST) Glucose POCT 257(H) 70 - 100 mg/dL 07/11/2024 8:04 PM EST [facility] POCT Comment RN Notified 07/11/2024 8:04 PM EST [facility] Blood Capillary blood specimen / Unknown 07/11/2024 8:03 PM EST 07/11/2024 8:05 PM EST us Kwesi Guido MD LAB POINT OF ARE TEST DOCKED DEVICE UNSOLICITED RESULTS Final Result Performing Organization Address [facility]/ZIP Co de Phone Number [facility] [address] [place] [address], [place] [phone] * (ABNORMAL) POCT Glucose, blood (07/11/2024 3:51 PM EST) Glucose POCT 259(H) 70 - 100 mg/dL 07/11/2024 3:51 PM EST [facility] Blood Capillary blood specimen / Unknown 07/11/2024 3:51 PM EST 07/11/2024 3:52 PM EST us Kwesi Guido MD LAB POINT OF ARE TEST DOCKED DEVICE UNSOLICITED RESULTS Final Result Performing Organization Address City/[facility]/ZIP Co de Phone Number [facility] [address] [place] [address], [place] [phone] * (ABNORMAL) POCT Glucose, blood (07/11/2024 11:10 AM EST) Glucose POCT 301(H) 70 - 100 mg/dL 07/11/2024 11:11 AM EST [facility] Blood Capillary blood specimen / Unknown 07/11/2024 11:10 AM EST 07/11/2024 11:13 AM EST us Kwesi Guido MD LAB POINT OF ARE TEST DOCKED DEVICE UNSOLICITED RESULTS Final Result [facility] [address] [place] [address], [place] [phone] * (ABNORMAL) POCT Glucose, blood (07/11/2024 8:17 AM EST) Glucose POCT 191(H) 70 - 100 mg/dL 07/11/2024 8:17 AM EST [facility] Blood Capillary blood specimen / Unknown 07/11/2024 8:17 AM EST 07/11/2024 8:19 AM EST us Kwesi Guido MD LAB POINT OF ARE TEST DOCKED DEVICE UNSOLICITED RESULTS Final Result [facility] [address] [place] [address], [place] [phone] * Pathologist Review Immunofixation (07/11/2024 6:21 AM EST) Pathologist Interpretation Reviewed by Rosenda Galeana MD 07/13/2024 4:13 PM EST [facility] Blood Venous blood specimen / Unknown Venipuncture / Unknown 07/11/2024 6:21 AM EST 07/11/2024 6:43 AM EST us Chencho Wayne MD LAB BLOOD ORDERABLES Final Resu lt [facility] [address] [place] [address], * (ABNORMAL) Hepatic function panel (07/11/2024 6:21 AM EST) Total Protein 5.1(L) 6.0 - 8.0 g/dL LAB CHEMISTRY METHOD 07/12/2024 3:26 PM EST [facility] Albumin 1.5(L) 3.2 - 5.0 g/dL LAB CHEMISTRY METHOD 07/12/2024 3:26 PM EST [facility] Total Bilirubin 0.6 0.0 - 1.4 mg/dL LAB CHEMISTRY METHOD 07/12/2024 3:26 PM [facility] Bilirubin, Direct 0.3 0.0 - 0.3 mg/dL LAB CHEMISTRY METHOD 07/12/2024 3:26 PM EST [facility] Bilirubin, Indirect 0.3 0.0 - 1.1 mg/dL LAB CHEMISTRY METHOD 07/12/2024 3:26 PM EST [facility] ALT (SGPT) 39 10 - 60 unit/L LAB CHEMISTRY METHOD 07/12/2024 3:26 PM [facility] AST (SGOT) 36 10 - 42 unit/L LAB CHEMISTRY METHOD 07/12/2024 3:26 PM EST [facility] Alkaline Phosphatase 168(H) 42 - 121 unit/L LAB CHEMISTRY METHOD 07/12/2024 3:26 PM [facility] Blood Venous blood specimen / Unknown Venipuncture / Unknown 07/11/2024 6:21 AM EST 07/11/2024 6:42 AM EST Kwesi Guido MD LAB BLOOD ORDERABLES F inal Result [facility] [address] [place] [address], [place] [phone] * Immunoglobulins IgG, IgA, IgM (07/11/2024 6:21 AM EST) [facility] Total IgG 1,090 549 - 1,584 mg/dL LAB CHEMISTRY METHOD 07/11/2024 7:29 AM EST [facility] IgA 172 61 - 348 mg/dL LAB CHEMISTRY METHOD 07/11/2024 7:29 AM EST [facility] IgM 38 23 - 259 mg/dL LAB CHEMISTRY METHOD 07/11/2024 7:29 AM EST [facility] Blood Venous blood specimen / Unknown Venipuncture / Unknown 07/11/2024 6:21 AM EST 07/11/2024 6:42 AM EST us Chencho Wayne MD LAB BLOOD ORDERABLES Final Resu lt Performing Organization Address City/[facility]/ZIP Co de Phone Number [facility] [address] [place] [address], [place] [phone] * Immunofixation electrophoresis serum (07/11/2024 6:21 AM EST) [facility] Immunofixation Result, Serum Faint restriction of IgG [place], not observed on SPEP . Follow-up in 6 months if clinically indicated. LAB CHEMISTRY METHOD 07/13/2024 4:13 PM EST [facility] Blood Venous blood specimen / Unknown Venipuncture / Unknown 07/11/2024 6:21 AM EST 07/11/2024 6:43 AM EST us Chencho Wayne MD LAB BLOOD ORDERABLES Final Resu lt [facility] [address] [place] [address], [place] [phone] * (ABNORMAL) CBC auto differential (07/11/2024 6:21 AM EST) [facility] WBC 18.4(H) 4.8 - 10.8 K/mcL LAB HEMETOLOGY METHOD 07/11/2024 6:52 AM [facility] RBC 3.20(L) 3.80 - 4.80 M/mcL LAB HEMETOLOGY METHOD 07/11/2024 6:52 AM [facility] Hemoglobin 7.4(L) 11.5 - 16.0 g/dL LAB HEMETOLOGY METHOD 07/11/2024 6:52 AM [facility] Hematocrit 23.7(L) 35.0 - 47.0 % LAB HEMETOLOGY METHOD 07/11/2024 6:52 AM [facility] MCV 75.0(L) 79.0 - 98.0 FL LAB HEMETOLOGY METHOD 07/11/2024 6:52 AM [facility] MCH 23.4(L) 27.0 - 32.0 pcg LAB HEMETOLOGY METHOD 07/11/2024 6:52 AM [facility] MCHC 31.2(L) 32.0 - 37.0 g/dL LAB HEMETOLOGY METHOD 07/11/2024 6:52 AM [facility] RDW 20.2(H) 11.0 - 15.0 % LAB HEMETOLOGY METHOD 07/11/2024 6:52 AM [facility] Platelets 211 130 - 400 K/mcL LAB HEMETOLOGY METHOD 07/11/2024 6:52 AM [facility] MPV 9.1 7.0 - 11.0 FL LAB HEMETOLOGY METHOD 07/11/2024 6:52 AM [facility] NRBC 0.0 <1.0 % LAB HEMETOLOGY METHOD 07/11/2024 6:52 AM [facility] NRBC Absolute 0.00 <0.10 K/mcL LAB HEMETOLOGY METHOD 07/11/2024 6:52 AM [facility] Neutrophils Relative 86.2 % LAB HEMETOLOGY METHOD 07/11/2024 6:52 AM [facility] Lymphocytes Relative 3.0 % LAB HEMETOLOGY METHOD 07/11/2024 6:52 AM [facility] Monocytes Relative 5.9 % LAB HEMETOLOGY METHOD 07/11/2024 6:52 AM [facility] Eosinophils Relative 3.3 % LAB HEMETOLOGY METHOD 07/11/2024 6:52 AM [facility] Basophils Relative 0.2 % LAB HEMETOLOGY METHOD 07/11/2024 6:52 AM [facility] Immature Granulocytes Relative 1.4 % LAB HEMETOLOGY METHOD 07/11/2024 6:52 AM [facility] Neutrophils Absolute 15.84(H) 1.50 - 7.00 K/mcL LAB HEMETOLOGY METHOD 07/11/2024 6:52 AM [facility] Lymphocytes Absolute 0.56(L) 1.00 - 5.00 K/mcL LAB HEMETOLOGY METHOD 07/11/2024 6:52 AM [facility] Monocytes Absolute 1.09(H) 0.20 - 1.00 K/mcL LAB HEMETOLOGY METHOD 07/11/2024 6:52 AM [facility] Eosinophils Absolute 0.61(H) 0.00 - 0.50 K/mcL LAB HEMETOLOGY METHOD 07/11/2024 6:52 AM [facility] Basophils Absolute 0.04 0.00 - 0.20 K/mcL LAB HEMETOLOGY METHOD 07/11/2024 6:52 AM [facility] Immature Granulocytes Absolute 0.26(H) 0.00 - 0.03 K/mcL LAB HEMETOLOGY METHOD 07/11/2024 6:52 AM [facility] Blood Venous blood specimen / Unknown Venipuncture / Unknown 07/11/2024 6:21 AM EST 07/11/2024 6:41 AM EST us Maria Alejandra Melendez MD LAB BLOOD ORDERABLES Final Res ult [facility] [address] [place] [address], * (ABNORMAL) Basic metabolic panel (07/11/2024 6:21 AM EST) Sodium 130(L) 133 - 145 mmol/L LAB CHEMISTRY METHOD 07/11/2024 7:27 AM [facility] Potassium 3.7 3.5 - 5.5 mmol/L LAB CHEMISTRY METHOD 07/11/2024 7:27 AM [facility] Chloride 102 96 - 110 mmol/L LAB CHEMISTRY METHOD 07/11/2024 7:27 AM [facility] CO2 19(L) 21 - 32 mmol/L LAB CHEMISTRY METHOD 07/11/2024 7:27 AM [facility] Anion Gap 9 3 - 11 LAB CHEMISTRY METHOD 07/11/2024 7:27 AM [facility] Glucose 174(H) 70 - 100 mg/dL LAB CHEMISTRY METHOD 07/11/2024 7:27 AM [facility] BUN 69(H) 5 - 25 mg/dL LAB CHEMISTRY METHOD 07/11/2024 7:27 AM [facility] Creatinine 4.36(H) 0.50 - 1.10 mg/dL LAB CHEMISTRY METHOD 07/11/2024 7:27 AM [facility] eGFR 10(L) >=60 mL/min/1. 73m2 LAB CHEMISTRY METHOD 07/11/2024 7:27 AM [facility] Comment:Calculation based on the??Chronic Kidney Disease Epidemiology Collaboration (CKD-EPI) equation refit??without adjustment for race. BUN/Creatinine Ratio 15.8 LAB CHEMISTRY METHOD 07/11/2024 7:27 AM EST [facility] Calcium 8.2(L) 8.5 - 10.5 mg/dL LAB CHEMISTRY METHOD 07/11/2024 7:27 AM EST [facility] Blood Venous blood specimen / Unknown Venipuncture / Unknown 07/11/2024 6:21 AM EST 07/11/2024 6:42 AM EST Maria Alejandra [place] MD LAB BLOOD ORDERABLES Final Res ult [facility] [address] [place] [address], [place] [phone] * (ABNORMAL) POCT Glucose, blood (07/10/2024 8:33 PM EST) Glucose POCT 325(H) 70 - 100 mg/dL 07/10/2024 8:34 PM EST [facility] Blood Capillary blood specimen / Unknown 07/10/2024 8:33 PM EST 07/10/2024 8:35 PM EST Maria Alejandra [place] MD LAB POINT OF CARE TE ST DOCKED DEVICE UNSOLICITED RESULTS Final Result [facility] [address] [place] [address], [place] [phone] * (ABNORMAL) POCT Glucose, blood (07/10/2024 4:11 PM EST) Glucose POCT 287(H) 70 - 100 mg/dL 07/10/2024 4:12 PM EST [facility] Blood Capillary blood specimen / Unknown 07/10/2024 4:11 PM EST 07/10/2024 4:13 PM EST Maria Alejandra [place] MD LAB POINT OF CARE TE ST DOCKED DEVICE UNSOLICITED RESULTS Final Result [facility] [address] [place] [address], [place] [phone] * (ABNORMAL) POCT Glucose, blood (07/10/2024 11:29 AM EST) Glucose POCT 214(H) 70 - 100 mg/dL 07/10/2024 11:45 AM EST [facility] Blood Capillary blood specimen / Unknown 07/10/2024 11:29 AM EST 07/10/2024 11:47 AM EST Maria Alejandra [place] MD LAB POINT OF CARE TE ST DOCKED DEVICE UNSOLICITED RESULTS Final Result Performing Organization Address City[facility]/ZIP Co de Phone Number [facility] [address] [place] [address], [place] [phone] * (ABNORMAL) POCT Glucose, blood (07/10/2024 8:40 AM EST) Glucose POCT 164(H) 70 - 100 mg/dL 07/10/2024 8:42 AM EST [facility] Blood Capillary blood specimen / Unknown 07/10/2024 8:40 AM EST 07/10/2024 8:43 AM EST Maria Alejandra [place] MD LAB POINT OF CARE TE ST DOCKED DEVICE UNSOLICITED RESULTS Final Result [facility] [address] [place] [address], [place] [phone] * (ABNORMAL) Triiodothyronine free (07/10/2024 5:16 AM EST) T3, Free 154(L) 230 - 420 pcg/dL LAB CHEMISTRY METHOD 07/10/2024 2:10 PM EST [facility] Blood Venous blood specimen / Unknown Venipuncture / Unknown 07/10/2024 5:16 AM EST 07/10/2024 6:42 AM EST Maria Alejandra [place] MD LAB BLOOD ORDERABLES Final Res ult Performing Organization Address City[facility]/ZIP Co de Phone Number [facility] [address] [place] [address], [place] [phone] * Thyroxine free (07/10/2024 5:16 AM EST) Free T4 0.92 0.70 - 1.80 ng/dL LAB CHEMISTRY METHOD 07/10/2024 2:04 PM EST [facility] Blood Venous blood specimen / Unknown Venipuncture / Unknown 07/10/2024 5:16 AM EST 07/10/2024 6:42 AM EST us Maria Alejandra [place] MD LAB BLOOD ORDERABLES Final Res ult Performing Organization Address [facility]/ZIP Co de Phone Number [facility] [address] [place] [address], [place] [phone] * (ABNORMAL) Parathyroid hormone intact (07/10/2024 5:16 AM EST) PTH 10.5(L) 18.5 - 88.0 pcg/mL LAB CHEMISTRY METHOD 07/10/2024 1:47 PM EST [facility] Blood Venous blood specimen / Unknown Venipuncture / Unknown 07/10/2024 5:16 AM EST 07/10/2024 6:42 AM EST Maria Alejandra [place] MD LAB BLOOD ORDERABLES Final Res ult [facility] [address] [place] [address], [place] [phone] * (ABNORMAL) CBC auto differential (07/10/2024 5:16 AM EST) [facility] WBC 16.9(H) 4.8 - 10.8 K/mcL LAB HEMETOLOGY METHOD 07/10/2024 7:29 AM [facility] RBC 3.30(L) 3.80 - 4.80 M/mcL LAB HEMETOLOGY METHOD 07/10/2024 7:29 AM [facility] Hemoglobin 7.6(L) 11.5 - 16.0 g/dL LAB HEMETOLOGY METHOD 07/10/2024 7:29 AM [facility] Hematocrit 24.4(L) 35.0 - 47.0 % LAB HEMETOLOGY METHOD 07/10/2024 7:29 AM [facility] MCV 74.4(L) 79.0 - 98.0 FL LAB HEMETOLOGY METHOD 07/10/2024 7:29 AM [facility] MCH 23.2(L) 27.0 - 32.0 pcg LAB HEMETOLOGY METHOD 07/10/2024 7:29 AM [facility] MCHC 31.1(L) 32.0 - 37.0 g/dL LAB HEMETOLOGY METHOD 07/10/2024 7:29 AM [facility] RDW 19.8(H) 11.0 - 15.0 % LAB HEMETOLOGY METHOD 07/10/2024 7:29 AM [facility] Platelets 277 130 - 400 K/mcL LAB HEMETOLOGY METHOD 07/10/2024 7:29 AM [facility] MPV 9.1 7.0 - 11.0 FL LAB HEMETOLOGY METHOD 07/10/2024 7:29 AM [facility] NRBC 0.0 <1.0 % LAB HEMETOLOGY METHOD 07/10/2024 7:29 AM [facility] NRBC Absolute 0.00 <0.10 K/mcL LAB HEMETOLOGY METHOD 07/10/2024 7:29 AM [facility] Neutrophils Relative 86.9 % LAB HEMETOLOGY METHOD 07/10/2024 7:29 AM [facility] Lymphocytes Relative 3.2 % LAB HEMETOLOGY METHOD 07/10/2024 7:29 AM [facility] Monocytes Relative 5.9 % LAB HEMETOLOGY METHOD 07/10/2024 7:29 AM [facility] Eosinophils Relative 2.8 % LAB HEMETOLOGY METHOD 07/10/2024 7:29 AM [facility] Basophils Relative 0.2 % LAB HEMETOLOGY METHOD 07/10/2024 7:29 AM [facility] Immature Granulocytes Relative 1.0 % LAB HEMETOLOGY METHOD 07/10/2024 7:29 AM [facility] Neutrophils Absolute 14.72(H) 1.50 - 7.00 K/mcL LAB HEMETOLOGY METHOD 07/10/2024 7:29 AM [facility] Lymphocytes Absolute 0.54(L) 1.00 - 5.00 K/mcL LAB HEMETOLOGY METHOD 07/10/2024 7:29 AM [facility] Monocytes Absolute 1.00 0.20 - 1.00 K/mcL LAB HEMETOLOGY METHOD 07/10/2024 7:29 AM [facility] Eosinophils Absolute 0.47 0.00 - 0.50 K/mcL LAB HEMETOLOGY METHOD 07/10/2024 7:29 AM [facility] Basophils Absolute 0.04 0.00 - 0.20 K/mcL LAB HEMETOLOGY METHOD 07/10/2024 7:29 AM [facility] Immature Granulocytes Absolute 0.17(H) 0.00 - 0.03 K/mcL LAB HEMETOLOGY METHOD 07/10/2024 7:29 AM EST [facility] Blood Venous blood specimen / Unknown Venipuncture / Unknown 07/10/2024 5:16 AM EST 07/10/2024 6:43 AM EST Maria Alejandra [place] MD LAB BLOOD ORDERABLES Final Res ult Performing Organization Address [facility]/ZIP Co de Phone Number [facility] [address] [place] [address], [place] [phone] * (ABNORMAL) Magnesium (07/10/2024 5:16 AM EST) Pathologist [facility] [place] Magnesium 1.8(L) 1.9 - 2.6 mg/dL LAB CHEMISTRY METHOD 07/10/2024 7:38 AM [facility] Blood Venous blood specimen / Unknown Venipuncture / Unknown 07/10/2024 5:16 AM EST 07/10/2024 6:42 AM EST Maria Alejandra [place] MD LAB BLOOD ORDERABLES Final Res ult Performing Organization Address City[facility]/ZIP Co de Phone Number [facility] [address] [place] [address], [place] [phone] * (ABNORMAL) Basic metabolic panel (07/10/2024 5:16 AM EST) Pathologist [facility] [place] Sodium 133 133 - 145 mmol/L LAB CHEMISTRY METHOD 07/10/2024 7:39 AM EST [facility] Potassium 3.8 3.5 - 5.5 mmol/L LAB CHEMISTRY METHOD 07/10/2024 7:39 AM [facility] Chloride 105 96 - 110 mmol/L LAB CHEMISTRY METHOD 07/10/2024 7:39 AM [facility] CO2 20(L) 21 - 32 mmol/L LAB CHEMISTRY METHOD 07/10/2024 7:39 AM [facility] Anion Gap 8 3 - 11 LAB CHEMISTRY METHOD 07/10/2024 7:39 AM [facility] Glucose 167(H) 70 - 100 mg/dL LAB CHEMISTRY METHOD 07/10/2024 7:39 AM [facility] BUN 65(H) 5 - 25 mg/dL LAB CHEMISTRY METHOD 07/10/2024 7:39 AM [facility] Creatinine 4.19(H) 0.50 - 1.10 mg/dL LAB CHEMISTRY METHOD 07/10/2024 7:39 AM [facility] eGFR 10(L) >=60 mL/min/1. 73m2 LAB CHEMISTRY METHOD 07/10/2024 7:39 AM [facility] Comment:Calculation based on the??Chronic Kidney Disease Epidemiology Collaboration (CKD-EPI) equation refit??without adjustment for race. BUN/Creatinine Ratio 15.5 LAB CHEMISTRY METHOD 07/10/2024 7:39 AM [facility] Calcium 8.5 8.5 - 10.5 mg/dL LAB CHEMISTRY METHOD 07/10/2024 7:39 AM [facility] Blood Venous blood specimen / Unknown Venipuncture / Unknown 07/10/2024 5:16 AM EST 07/10/2024 6:42 AM EST us Maria Alejandra [place] MD LAB BLOOD ORDERABLES Final Res ult [facility] [address] [place] [address], * (ABNORMAL) POCT Glucose, blood (07/09/2024 7:52 PM EST) Glucose POCT 243(H) 70 - 100 mg/dL 07/09/2024 7:53 PM EST [facility] Blood Capillary blood specimen / Unknown 07/09/2024 7:52 PM EST 07/09/2024 7:54 PM EST us Maria Alejandra [place] MD LAB POINT OF CARE TE ST DOCKED DEVICE UNSOLICITED RESULTS Final Result [facility] [address] [place] [address], [place] [phone] * (ABNORMAL) POCT Glucose, blood (07/09/2024 4:27 PM EST) Glucose POCT 264(H) 70 - 100 mg/dL 07/09/2024 4:28 PM EST [facility] Blood Capillary blood specimen / Unknown 07/09/2024 4:27 PM EST 07/09/2024 4:29 PM EST us Maria Alejandra [place] MD LAB POINT OF CARE TE ST DOCKED DEVICE UNSOLICITED RESULTS Final Result Performing Organization Address City/[facility]/ZIP Co de Phone Number [facility] [address] [place] [address], [place] [phone] * (ABNORMAL) POCT Glucose, blood (07/09/2024 11:33 AM EST) Glucose POCT 179(H) 70 - 100 mg/dL 07/09/2024 11:34 AM EST [facility] Blood Capillary blood specimen / Unknown 07/09/2024 11:33 AM EST 07/09/2024 11:35 AM EST us Maria Alejandra Melendez MD LAB POINT OF CARE TE ST DOCKED DEVICE UNSOLICITED RESULTS Final Result [facility] [address] [place] [address], [place] [phone] * (ABNORMAL) POCT Glucose, blood (07/09/2024 8:59 AM EST) Glucose POCT 175(H) 70 - 100 mg/dL 07/09/2024 9:06 AM [facility] Blood Capillary blood specimen / Unknown 07/09/2024 8:59 AM EST 07/09/2024 9:08 AM EST us Maria Alejandra Melendez MD LAB POINT OF CARE TE ST DOCKED DEVICE UNSOLICITED RESULTS Final Result [facility] [address] [place] [address], * (ABNORMAL) CBC auto differential (07/09/2024 6:25 AM EST) WBC 18.4(H) 4.8 - 10.8 K/mcL LAB HEMETOLOGY METHOD 07/09/2024 8:05 AM [facility] RBC 3.50(L) 3.80 - 4.80 M/mcL LAB HEMETOLOGY METHOD 07/09/2024 8:05 AM [facility] Hemoglobin 8.3(L) 11.5 - 16.0 g/dL LAB HEMETOLOGY METHOD 07/09/2024 8:05 AM [facility] Hematocrit 26.1(L) 35.0 - 47.0 % LAB HEMETOLOGY METHOD 07/09/2024 8:05 AM [facility] MCV 74.4(L) 79.0 - 98.0 FL LAB HEMETOLOGY METHOD 07/09/2024 8:05 AM [facility] MCH 23.6(L) 27.0 - 32.0 pcg LAB HEMETOLOGY METHOD 07/09/2024 8:05 AM [facility] MCHC 31.8(L) 32.0 - 37.0 g/dL LAB HEMETOLOGY METHOD 07/09/2024 8:05 AM [facility] RDW 19.2(H) 11.0 - 15.0 % LAB HEMETOLOGY METHOD 07/09/2024 8:05 AM [facility] Platelets 333 130 - 400 K/mcL LAB HEMETOLOGY METHOD 07/09/2024 8:05 AM [facility] MPV 9.1 7.0 - 11.0 FL LAB HEMETOLOGY METHOD 07/09/2024 8:05 AM [facility] NRBC 0.0 <1.0 % LAB HEMETOLOGY METHOD 07/09/2024 8:05 AM [facility] NRBC Absolute 0.00 <0.10 K/mcL LAB HEMETOLOGY METHOD 07/09/2024 8:05 AM [facility] Neutrophils Relative 89.0 % LAB HEMETOLOGY METHOD 07/09/2024 8:05 AM [facility] Lymphocytes Relative 2.8 % LAB HEMETOLOGY METHOD 07/09/2024 8:05 AM [facility] Monocytes Relative 6.1 % LAB HEMETOLOGY METHOD 07/09/2024 8:05 AM [facility] Eosinophils Relative 1.1 % LAB HEMETOLOGY METHOD 07/09/2024 8:05 AM [facility] Basophils Relative 0.2 % LAB HEMETOLOGY METHOD 07/09/2024 8:05 AM [facility] Immature Granulocytes Relative 0.8 % LAB HEMETOLOGY METHOD 07/09/2024 8:05 AM [facility] Neutrophils Absolute 16.38(H) 1.50 - 7.00 K/mcL LAB HEMETOLOGY METHOD 07/09/2024 8:05 AM [facility] Lymphocytes Absolute 0.52(L) 1.00 - 5.00 K/mcL LAB HEMETOLOGY METHOD 07/09/2024 8:05 AM [facility] Monocytes Absolute 1.13(H) 0.20 - 1.00 K/mcL LAB HEMETOLOGY METHOD 07/09/2024 8:05 AM EST [facility] Eosinophils Absolute 0.21 0.00 - 0.50 K/[facility] LAB HEMETOLOGY METHOD 07/09/2024 8:05 AM EST [facility] Basophils Absolute 0.03 0.00 - 0.20 K/[facility] LAB HEMETOLOGY METHOD 07/09/2024 8:05 AM EST [facility] Immature Granulocytes Absolute 0.14(H) 0.00 - 0.03 K/[facility] LAB HEMETOLOGY METHOD 07/09/2024 8:05 AM [facility] Blood Venous blood specimen / Unknown Venipuncture / Unknown 07/09/2024 6:25 AM EST 07/09/2024 7:11 AM EST [facility] LAB BLOOD ORDERABLES Final Re sult Performing Organization Address City/[facility]/ZIP Co de Phone Number [facility] [address] [place] [address], [place] [phone] * Creatine kinase (07/09/2024 6:25 AM EST) [facility] Total CK 172 22 - 269 unit/L LAB CHEMISTRY METHOD 07/09/2024 8:11 AM EST [facility] Blood Venous blood specimen / Unknown Venipuncture / Unknown 07/09/2024 6:25 AM EST 07/09/2024 7:11 AM EST [facility] LAB BLOOD ORDERABLES Final Re sult [facility] [address] [place] [address], [place] [phone] * (ABNORMAL) Calcium, ionized (07/09/2024 6:25 AM EST) Calcium Ionized 5.66(H) 4.50 - 5.30 mg/dL 07/09/2024 7:23 AM EST [facility] Blood Venous blood specimen / Unknown Venipuncture / Unknown 07/09/2024 6:25 AM EST 07/09/2024 7:11 AM EST [facility] LAB BLOOD ORDERABLES Final Re sult [facility] [address] [place] [address], [place] [phone] * Magnesium (07/09/2024 6:25 AM EST) Pathologist [facility] [place] Magnesium 2.0 1.9 - 2.6 mg/dL LAB CHEMISTRY METHOD 07/09/2024 8:11 AM [facility] Blood Venous blood specimen / Unknown Venipuncture / Unknown 07/09/2024 6:25 AM EST 07/09/2024 7:11 AM EST Aye [facility] BLOOD ORDERABLES Final Re sult [facility] [address] [place] [address], [place] [phone] * (ABNORMAL) Basic metabolic panel (07/09/2024 6:25 AM EST) Sodium 131(L) 133 - 145 mmol/L LAB CHEMISTRY METHOD 07/09/2024 8:12 AM EST [facility] Potassium 3.8 3.5 - 5.5 mmol/L LAB CHEMISTRY METHOD 07/09/2024 8:12 AM EST [facility] Chloride 101 96 - 110 mmol/L LAB CHEMISTRY METHOD 07/09/2024 8:12 AM [facility] CO2 21 21 - 32 mmol/L LAB CHEMISTRY METHOD 07/09/2024 8:12 AM EST [facility] Anion Gap 9 3 - 11 LAB CHEMISTRY METHOD 07/09/2024 8:12 AM [facility] Glucose 170(H) 70 - 100 mg/dL LAB CHEMISTRY METHOD 07/09/2024 8:12 AM [facility] BUN 63(H) 5 - 25 mg/dL LAB CHEMISTRY METHOD 07/09/2024 8:12 AM [facility] Creatinine 4.07(H) 0.50 - 1.10 mg/dL LAB CHEMISTRY METHOD 07/09/2024 8:12 AM [facility] eGFR 11(L) >=60 mL/min/1. 73m2 LAB CHEMISTRY METHOD 07/09/2024 8:12 AM [facility] Comment:Calculation based on the??Chronic Kidney Disease Epidemiology Collaboration (CKD-EPI) equation refit??without adjustment for race. BUN/Creatinine Ratio 15.5 LAB CHEMISTRY METHOD 07/09/2024 8:12 AM [facility] Calcium 9.5 8.5 - 10.5 mg/dL LAB CHEMISTRY METHOD 07/09/2024 8:12 AM [facility] Blood Venous blood specimen / Unknown Venipuncture / Unknown 07/09/2024 6:25 AM EST 07/09/2024 7:11 AM EST us Aye [facility] BLOOD ORDERABLES Final Re sult [facility] [address] [place] [address], * XR Chest 1 View (07/08/2024 10:00 PM EST) Anatomical Region Laterality Modality Body Radiographic Jennifer ging 07/09/2024 9:02 AM EST Impressions 07/09/2024 9:03 AM EST Scarring is noted lung apices. ??No acute infiltrate. ??Mediastinum appears normal. -------- FINAL REPORT -------- Dictated By: Primo Dee Dictated Date: 07/09/2024 09:02 ET Assigned Physician: Primo Dee Reviewed and Electronically Signed By: Primo Dee Signed Date: 07/09/2024 09:03 ET Workstation ID: [id number] Transcribed By: Self Edit Transcribed Date: 07/09/2024 09:02 ET Narrative 07/09/2024 9:03 AM EST Frontal view of the chest COMPARISON: Chest radiograph July 08 INDICATION: Weakness Procedure Note Primo Dee MD - 07/09/2024 Frontal view of the chest COMPARISON: Chest radiograph July 08 INDICATION: Weakness IMPRESSION: Scarring is noted lung apices. No acute infiltrate. Mediastinum appearsnormal. -------- FINAL REPORT -------- Dictated By: Primo Dee Dictated Date: 07/09/2024 09:02 ET Assigned Physician: Primo Dee Reviewed and Electronically Signed By: Primo Dee Signed Date: 07/09/2024 09:03 ET Workstation ID: [id number] Transcribed By: Self Edit Transcribed Date: 07/09/2024 09:02 ET Aye HEDRICK IMG XR PROCEDURES Final Resul t * Green LI heparin tube (07/08/2024 9:50 PM EST) Extra Tube Hold for add-ons. 07/09/2024 12:01 AM EST [facility] Comment:Auto resulted. Blood Venous blood specimen / Unknown 07/08/2024 9:50 PM EST 07/08/2024 10:41 PM EST Wayne Donahue MD LAB BLOOD ORDERABLES Final Re sult [facility] [address] [place] [address], * Culture blood (07/08/2024 9:49 PM EST) Culture, Blood No growth at 5 days 07/13/2024 10:01 PM EST [facility] Blood Venous blood specimen / Unknown Venipuncture / Unknown 07/08/2024 9:49 PM EST 07/08/2024 9:54 PM EST us Aye HEDRICK LAB MICROBIOLOGY - GENERAL OR DERABLES Final Result [facility] [address] [place] [address], [place] [phone] * Lactate (07/08/2024 9:42 PM EST) Lactate 1.3 mmol/L 07/08/2024 10:30 PM EST [facility] Blood Venous blood specimen / Unknown Venipuncture / Unknown 07/08/2024 9:42 PM EST 07/08/2024 9:54 PM EST us Aye HEDRICK LAB BLOOD ORDERABLES Final Re sult Performing Organization Address City/[facility]/ZIP Co de Phone Number [facility] [address] [place] [address], [place] [phone] * Culture blood (07/08/2024 9:37 PM EST) Culture, Blood No growth at 5 days 07/13/2024 10:01 PM EST [facility] Blood Venous blood specimen / Unknown Venipuncture / Unknown 07/08/2024 9:37 PM EST 07/08/2024 9:56 PM EST us Aye HEDRICK LAB MICROBIOLOGY - GENERAL OR DERABLES Final Result [facility] [address] [place] [address], [place] [phone] * (ABNORMAL) POCT Glucose, blood (07/08/2024 8:46 PM EST) [facility] Glucose POCT 264(H) 70 - 100 mg/dL 07/08/2024 8:46 PM [facility] Blood Capillary blood specimen / Unknown 07/08/2024 8:46 PM EST 07/08/2024 8:47 PM EST Wayne Donahue MD LAB POINT OF CARE TE ST DOCKED DEVICE UNSOLICITED RESULTS Final Result [facility] [address] [place] [address], [place] [phone] * (ABNORMAL) Basic metabolic panel (07/08/2024 8:30 PM EST) [facility] Sodium 130(L) 133 - 145 mmol/L LAB CHEMISTRY METHOD 07/08/2024 11:37 PM [facility] Potassium 4.0 3.5 - 5.5 mmol/L LAB CHEMISTRY METHOD 07/08/2024 11:37 PM [facility] Chloride 98 96 - 110 mmol/L LAB CHEMISTRY METHOD 07/08/2024 11:37 PM [facility] CO2 22 21 - 32 mmol/L LAB CHEMISTRY METHOD 07/08/2024 11:37 PM [facility] Anion Gap 10 3 - 11 LAB CHEMISTRY METHOD 07/08/2024 11:37 PM [facility] Glucose 261(H) 70 - 100 mg/dL LAB CHEMISTRY METHOD 07/08/2024 11:37 PM [facility] BUN 64(H) 5 - 25 mg/dL LAB CHEMISTRY METHOD 07/08/2024 11:37 PM [facility] Creatinine 4.32(H) 0.50 - 1.10 mg/dL LAB CHEMISTRY METHOD 07/08/2024 11:37 PM EST [facility] eGFR 10(L) >=60 mL/min/1. 73m2 LAB CHEMISTRY METHOD 07/08/2024 11:37 PM EST [facility] Comment:Calculation based on the??Chronic Kidney Disease Epidemiology Collaboration (CKD-EPI) equation refit??without adjustment for race. BUN/Creatinine Ratio 14.8 LAB CHEMISTRY METHOD 07/08/2024 11:37 PM EST [facility] Calcium 10.3 8.5 - 10.5 mg/dL LAB CHEMISTRY METHOD 07/08/2024 11:37 PM [facility] Blood Venous blood specimen / Unknown Venipuncture / Unknown 07/08/2024 8:30 PM EST 07/08/2024 8:37 PM EST Aye HEDRICK LAB BLOOD ORDERABLES Final Re sult [facility] [address] [place] [address], * (ABNORMAL) Complete blood count (07/08/2024 8:30 PM EST) WBC 20.5(H) 4.8 - 10.8 K/mcL LAB HEMETOLOGY METHOD 07/08/2024 8:56 PM [facility] RBC 4.00 3.80 - 4.80 M/mcL LAB HEMETOLOGY METHOD 07/08/2024 8:56 PM [facility] Hemoglobin 9.2(L) 11.5 - 16.0 g/dL LAB HEMETOLOGY METHOD 07/08/2024 8:56 PM [facility] Hematocrit 30.0(L) 35.0 - 47.0 % LAB HEMETOLOGY METHOD 07/08/2024 8:56 PM [facility] MCV 75.8(L) 79.0 - 98.0 FL LAB HEMETOLOGY METHOD 07/08/2024 8:56 PM EST [facility] MCH 23.2(L) 27.0 - 32.0 pcg LAB HEMETOLOGY METHOD 07/08/2024 8:56 PM EST [facility] MCHC 30.7(L) 32.0 - 37.0 g/dL LAB HEMETOLOGY METHOD 07/08/2024 8:56 PM EST [facility] RDW 19.9(H) 11.0 - 15.0 % LAB HEMETOLOGY METHOD 07/08/2024 8:56 PM EST [facility] Platelets 332 130 - 400 K/mcL LAB HEMETOLOGY METHOD 07/08/2024 8:56 PM EST [facility] MPV 8.6 7.0 - 11.0 FL LAB HEMETOLOGY METHOD 07/08/2024 8:56 PM EST [facility] NRBC 0.0 <1.0 % LAB HEMETOLOGY METHOD 07/08/2024 8:56 PM EST [facility] NRBC Absolute 0.00 <0.10 K/mcL LAB HEMETOLOGY METHOD 07/08/2024 8:56 PM EST [facility] Blood Venous blood specimen / Unknown Venipuncture / Unknown 07/08/2024 8:30 PM EST 07/08/2024 8:37 PM EST us Aye HEDRICK LAB BLOOD ORDERABLES Final Re sult [facility] [address] [place] [address], * (ABNORMAL) Electrolyte panel (07/08/2024 8:30 PM EST) Sodium 130(L) 133 - 145 mmol/L LAB CHEMISTRY METHOD 07/08/2024 11:37 PM EST [facility] Potassium 4.0 3.5 - 5.5 mmol/L LAB CHEMISTRY METHOD 07/08/2024 11:37 PM EST [facility] Chloride 98 96 - 110 mmol/L LAB CHEMISTRY METHOD 07/08/2024 11:37 PM EST [facility] CO2 22 21 - 32 mmol/L LAB CHEMISTRY METHOD 07/08/2024 11:37 PM EST [facility] Anion Gap 10 3 - 11 LAB CHEMISTRY METHOD 07/08/2024 11:37 PM EST [facility] Blood Venous blood specimen / Unknown Venipuncture / Unknown 07/08/2024 8:30 PM EST 07/08/2024 8:37 PM EST us Aye HEDRICK LAB BLOOD ORDERABLES Final Re sult [facility] [address] [place] [address], [place] [phone] * Transfuse RBC (07/08/2024 6:45 PM EST) us Raya HEDRICK BLOOD TRANSFUSION ORDE RABDIEGO Final Result * Transfuse RBC: 1 Units (07/08/2024 6:45 PM EST) us Raya HEDRICK BLOOD TRANSFUSION ORDE RABLES Final Result * (ABNORMAL) POCT Glucose, blood (07/08/2024 6:19 PM EST) [facility] Signature Glucose POCT 276(H) 70 - 100 mg/dL 07/08/2024 6:19 PM EST [facility] Blood Capillary blood specimen / Unknown 07/08/2024 6:19 PM EST 07/08/2024 6:20 PM EST us Wayne Donahue MD LAB POINT OF CARE TE ST DOCKED DEVICE UNSOLICITED RESULTS Final Result [facility] [address] [place] [address], [place] [phone] * PATHOLOGIST REVIEW PROTEIN ELECTROPHORESIS (07/08/2024 5:52 PM EST) [facility] Pathologist Interpretation Reviewed by Rosenda Galeana MD 07/14/2024 9:21 AM EST [facility] Blood Venous blood specimen / Unknown Venipuncture / Unknown 07/08/2024 5:52 PM EST 07/08/2024 6:00 PM EST Aye HEDRICK LAB BLOOD ORDERABLES Final Re sult [facility] [address] [place] [address], [place] [phone] * Protein, total (07/08/2024 5:52 PM EST) [facility] Total Protein 6.4 6.0 - 8.0 g/dL LAB CHEMISTRY METHOD 07/08/2024 6:30 PM EST [facility] Blood Venous blood specimen / Unknown Venipuncture / Unknown 07/08/2024 5:52 PM EST 07/08/2024 6:00 PM EST us Aye HEDRICK LAB BLOOD ORDERABLES Final Re sult [facility] [address] [place] [address], [place] [phone] * (ABNORMAL) Basic metabolic panel (07/08/2024 5:52 PM EST) [facility] Sodium 128(L) 133 - 145 mmol/L LAB CHEMISTRY METHOD 07/08/2024 6:50 PM EST [facility] Potassium 4.0 3.5 - 5.5 mmol/L LAB CHEMISTRY METHOD 07/08/2024 6:50 PM EST [facility] Chloride 96 96 - 110 mmol/L LAB CHEMISTRY METHOD 07/08/2024 6:50 PM [facility] CO2 25 21 - 32 mmol/L LAB CHEMISTRY METHOD 07/08/2024 6:50 PM [facility] Anion Gap 7 3 - 11 LAB CHEMISTRY METHOD 07/08/2024 6:50 PM [facility] Glucose 259(H) 70 - 100 mg/dL LAB CHEMISTRY METHOD 07/08/2024 6:50 PM [facility] BUN 67(H) 5 - 25 mg/dL LAB CHEMISTRY METHOD 07/08/2024 6:50 PM [facility] Creatinine 4.12(H) 0.50 - 1.10 mg/dL LAB CHEMISTRY METHOD 07/08/2024 6:50 PM [facility] eGFR 10(L) >=60 mL/min/1. 73m2 LAB CHEMISTRY METHOD 07/08/2024 6:50 PM [facility] Comment:Calculation based on the??Chronic Kidney Disease Epidemiology Collaboration (CKD-EPI) equation refit??without adjustment for race. BUN/Creatinine Ratio 16.3 LAB CHEMISTRY METHOD 07/08/2024 6:50 PM [facility] Calcium 10.8(H) 8.5 - 10.5 mg/dL LAB CHEMISTRY METHOD 07/08/2024 6:50 PM [facility] Blood Venous blood specimen / Unknown Venipuncture / Unknown 07/08/2024 5:52 PM EST 07/08/2024 6:00 PM EST us Aye HEDRICK LAB BLOOD ORDERABLES Final Re sult [facility] [address] [place] [address], * (ABNORMAL) Serum albumin (07/08/2024 5:52 PM EST) Albumin 2.1(L) 3.2 - 5.0 g/dL LAB CHEMISTRY METHOD 07/08/2024 6:34 PM EST [facility] Blood Venous blood specimen / Unknown Venipuncture / Unknown 07/08/2024 5:52 PM EST 07/08/2024 6:00 PM EST Aye HEDRICK LAB BLOOD ORDERABLES Final Re sult Performing Organization Address City/[facility]/ZIP Co de Phone Number [facility] [address] [place] [address], [place] [phone] * (ABNORMAL) Electrolyte panel (07/08/2024 5:52 PM EST) [facility] Sodium 128(L) 133 - 145 mmol/L LAB CHEMISTRY METHOD 07/08/2024 6:34 PM [facility] Potassium 4.0 3.5 - 5.5 mmol/L LAB CHEMISTRY METHOD 07/08/2024 6:34 PM [facility] Chloride 96 96 - 110 mmol/L LAB CHEMISTRY METHOD 07/08/2024 6:34 PM [facility] CO2 25 21 - 32 mmol/L LAB CHEMISTRY METHOD 07/08/2024 6:34 PM [facility] Anion Gap 7 3 - 11 LAB CHEMISTRY METHOD 07/08/2024 6:34 PM EST [facility] Blood Venous blood specimen / Unknown Venipuncture / Unknown 07/08/2024 5:52 PM EST 07/08/2024 6:00 PM EST Aye HEDRICK LAB BLOOD ORDERABLES Final Re sult [facility] [address] [place] [address], [place] [phone] * (ABNORMAL) Protein electrophoresis, serum (07/08/2024 5:52 PM EST) Total Protein 6.4 6.0 - 8.0 g/dL LAB CHEMISTRY METHOD 07/14/2024 9:21 AM [facility] Albumin, Serum 2.2(L) 2.9 - 4.1 g/dL LAB CHEMISTRY METHOD 07/14/2024 9:21 AM [facility] Alpha 1 Globulin (g/dL) 0.6(H) 0.1 - 0.5 g/dL LAB CHEMISTRY METHOD 07/14/2024 9:21 AM [facility] Alpha 2 Globulin (g/dL) 1.2 0.7 - 1.5 g/dL LAB CHEMISTRY METHOD 07/14/2024 9:21 AM [facility] Beta (g/dL) 1.0 0.7 - 1.5 g/dL LAB CHEMISTRY METHOD 07/14/2024 9:21 AM [facility] Gamma Globulin (g/dL) 1.5 0.7 - 1.9 g/dL LAB CHEMISTRY METHOD 07/14/2024 9:21 AM [facility] SPEP Interpretation Hypoalbuminem ia, suggestive of malnutrition, decreased hepatic synthesis or renal/GI loss Elevated alpha-1 fraction, suggestive of acute or or chronic inflammation. LAB CHEMISTRY METHOD 07/14/2024 9:21 AM [facility] Blood Venous blood specimen / Unknown Venipuncture / Unknown 07/08/2024 5:52 PM EST 07/08/2024 6:00 PM EST us Aye HEDRICK LAB BLOOD ORDERABLES Final Re sult [facility] [address] [place] [address], [place] [phone] * US Retroperitoneal Complete (07/08/2024 4:30 PM EST) Anatomical Region Laterality Modality Body Ultrasound 07/10/2024 2:07 PM EST Impressions 07/10/2024 2:08 PM EST Normal appearance of the kidneys. -------- FINAL REPORT -------- Dictated By: Primo Dee Dictated Date: 07/10/2024 14:07 ET Assigned Physician: Primo Dee Reviewed and Electronically Signed By: Primo Dee Signed Date: 07/10/2024 14:08 ET Workstation ID: [id number] Transcribed By: Self Edit Transcribed Date: 07/10/2024 14:07 ET Narrative 07/10/2024 2:08 PM EST Renal ultrasound COMPARISON: None INDICATION: Urinary tract obstruction. TECHNIQUE: Grayscale and color flow imaging assessment of the kidneys bilaterally. ?? FINDINGS: Right kidney measures 10cm. ??No evidence of hydronephrosis. ??Simple appearing 9 mm cyst is noted. Left kidney measures 10cm. ??No evidence of hydronephrosis. ?? The bladder appears normal. ??Bladder jets not visualized. Procedure Note Primo Dee MD - 07/10/2024 Renal ultrasound COMPARISON: None INDICATION: Urinary tract obstruction. TECHNIQUE: Grayscale and color flow imaging assessment of the kidneysbilaterally. FINDINGS: Right kidney measures 10cm. No evidence of hydronephrosis. Simpleappearing 9 mm cyst is noted. Left kidney measures 10cm. No evidence of hydronephrosis. The bladder appears normal. Bladder jets not visualized. IMPRESSION: Normal appearance of the kidneys. -------- FINAL REPORT -------- Dictated By: Primo Dee Dictated Date: 07/10/2024 14:07 ET Assigned Physician: Primo Dee Reviewed and Electronically Signed By: Primo Dee Signed Date: 07/10/2024 14:08 ET Workstation ID: [id number] Transcribed By: Self Edit Transcribed Date: 07/10/2024 14:07 ET us Aye HEDRICK Anibal US PROCEDURES Final Resul t * Respiratory virus panel molecular study (07/08/2024 2:59 PM EST) Adenovirus Detection by PCR Not Detected Not Detected LAB MICROBIOLOGY METHOD 07/08/2024 4:18 PM EST [facility] Influenza A PCR Not Detected Not Detected LAB MICROBIOLOGY METHOD 07/08/2024 4:18 PM EST [facility] Influenza B PCR Not Detected Not Detected LAB MICROBIOLOGY METHOD 07/08/2024 4:18 PM EST [facility] Coronavirus 229E Not Detected Not Detected LAB MICROBIOLOGY METHOD 07/08/2024 4:18 PM EST [facility] Coronavirus HKU1 Not Detected Not Detected LAB MICROBIOLOGY METHOD 07/08/2024 4:18 PM EST [facility] Coronavirus OC43 Not Detected Not Detected LAB MICROBIOLOGY METHOD 07/08/2024 4:18 PM [facility] Coronavirus NL63 Not Detected Not Detected LAB MICROBIOLOGY METHOD 07/08/2024 4:18 PM [facility] Parainfluenza Virus 1 Not Detected Not Detected LAB MICROBIOLOGY METHOD 07/08/2024 4:18 PM EST [facility] Parainfluenza Virus 2 Not Detected Not Detected LAB MICROBIOLOGY METHOD 07/08/2024 4:18 PM [facility] Parainfluenza Virus 3 Not Detected Not Detected LAB MICROBIOLOGY METHOD 07/08/2024 4:18 PM [facility] Parainfluenza Virus 4 Not Detected Not Detected LAB MICROBIOLOGY METHOD 07/08/2024 4:18 PM EST [facility] RSV PCR Not Detected Not Detected LAB MICROBIOLOGY METHOD 07/08/2024 4:18 PM [facility] Human Metapneumovirus A and B Not Detected Not Detected LAB MICROBIOLOGY METHOD 07/08/2024 4:18 PM EST [facility] Rhinovirus/Entero virus Not Detected Not Detected LAB MICROBIOLOGY METHOD 07/08/2024 4:18 PM EST [facility] Bordetella pertussis Not Detected Not Detected LAB MICROBIOLOGY METHOD 07/08/2024 4:18 PM EST [facility] Bordetella parapertussis Not Detected Not Detected LAB MICROBIOLOGY METHOD 07/08/2024 4:18 PM EST [facility] Mycoplasma pneumo by PCR Not Detected Not Detected LAB MICROBIOLOGY METHOD 07/08/2024 4:18 PM EST [facility] Chlamydia pneumoniae Not Detected Not Detected LAB MICROBIOLOGY METHOD 07/08/2024 4:18 PM EST [facility] SARS COV-2 Not Detected Not Detected LAB MICROBIOLOGY METHOD 07/08/2024 4:18 PM EST [facility] Swab Both anterior nares / Unknown Non-blood Collection / Unknown 07/08/2024 2:59 PM EST 07/08/2024 3:15 PM EST [facility] - 07/08/2024 4:18 PM EST Testing was performed using the [employer] Respiratory Pathogen PCR Assay. All results must be correlated with the clinical findings. Results should not be used as the sole basis for diagnosis. False Negative results may occur from the presence of sequence variants in the region targeted by the assay or the presence of inhibitors. Results may be affected by concurrent antiviral/antimicrobial therapy or levels of organisms that are below the limit of detection. Wayne Donahue MD LAB MICROBIOLOGY - GENERAL OR DERABLES Final Result [facility] [address] [place] [address], * XR Chest 2 Views (07/08/2024 2:01 PM EST) Anatomical Region Laterality Modality Body Radiographic Jennifer ging 07/08/2024 2:06 PM EST Impressions 07/08/2024 2:07 PM EST No acute findings. -------- FINAL REPORT -------- Dictated By: Henrique Bray Dictated Date: 07/08/2024 14:06 ET Assigned Physician: Henrique Bray Reviewed and Electronically Signed By: Henrique Bray Signed Date: 07/08/2024 14:07 ET Workstation ID: [id number] Transcribed By: Self Edit Transcribed Date: 07/08/2024 14:06 ET Narrative 07/08/2024 2:07 PM EST PA and lateral views of the chest dated 07/08/2024. HISTORY: chest pain. COMPARISON: CT 06/17/2024. FINDINGS: Areas of scarring in the upper lungs, right greater than left. ??Lungs otherwise clear. ??Atherosclerotic calcifications of the aorta. ??Pleural spaces and pulmonary vasculature are normal. ??Normal heart size. Procedure Note Henrique Bray MD - 07/08/2024 PA and lateral views of the chest dated 07/08/2024. HISTORY: chest pain. COMPARISON: CT 06/17/2024. FINDINGS: Areas of scarring in the upper lungs, right greater than left. Lungsotherwise clear. Atherosclerotic calcifications of the aorta. Pleuralspaces and pulmonary vasculature are normal. Normal heart size. IMPRESSION: No acute findings. -------- FINAL REPORT -------- Dictated By: Henrique Bray Dictated Date: 07/08/2024 14:06 ET Assigned Physician: Henrique Bray Reviewed and Electronically Signed By: Henrique Bray Signed Date: 07/08/2024 14:07 ET Workstation ID: [id number] Transcribed By: Self Edit Transcribed Date: 07/08/2024 14:06 ET us Jj Wolfe MD IMG XR PROCEDURES Final R esult * Type and screen (07/08/2024 1:18 PM EST) ABO Group O 07/08/2024 2:42 PM EST [facility] Rh Type Positive 07/08/2024 2:42 PM EST [facility] Antibody Screen Negative 07/08/2024 2:42 PM EST [facility] Blood Venous blood specimen / Unknown Venipuncture / Unknown 07/08/2024 1:18 PM EST 07/08/2024 1:34 PM EST Raya HEDRICK LAB BLOOD BANK TEST OR DERABLES Final Result Performing Organization Address [facility] Co de Phone Number [facility] [address] [place] [address], * (ABNORMAL) Troponin I high sensitivity (07/08/2024 1:18 PM EST) [facility] High Sensitivity Troponin I 81(H) <=54 ng/L LAB CHEMISTRY METHOD 07/08/2024 2:17 PM EST [facility] Blood Venous blood specimen / Unknown Venipuncture / Unknown 07/08/2024 1:18 PM EST 07/08/2024 1:34 PM EST Narrative [facility] - 07/08/2024 2:17 PM EST High levels of biotin in samples may falsely decrease hsTroponin values. ??Use caution when interpreting hsTroponin results in patients taking biotin who exhibit renal impairment (eGFR <60) or in patients taking more than 20 mg/day of biotin. Jj Wolfe MD LAB BLOOD ORDERABLES [place] l Result Performing Organization Address [facility] Co de Phone Number [facility] [address] [place] [address], [place] [phone] * Prepare RBC: 1 Units (07/08/2024 1:17 PM EST) [facility] Product Code [id number] 07/08/2024 4:13 PM EST [facility] Unit Number [id number] 07/08/19 25 4:13 PM EST [facility] Crossmatch Compatible 07/08/2024 2:53 PM EST [facility] Dispense Status Transfused 07/08/2024 4:13 PM [facility] Unit ABO Rh OPOS 07/08/2024 4:13 PM [facility] Unit Expiration Date Time [id number] 07/08/2024 4:13 PM [facility] Unit Blood Type 5100 07/08/2024 4:13 PM [facility] Blood Venous blood specimen / Unknown 07/08/2024 1:17 PM EST 06/17/2024 10:17 AM EST us Raya HEDRICK BLOOD BANK PRODUCT ORD ERABLES Final Result Performing Organization Address [facility]/ZIP Co de Phone Number [facility] [address] [place] [address], [place] [phone] * Culture urine (07/08/2024 12:59 PM EST) Culture, Urine No growth 07/09/2024 10:44 AM EST [facility] Urine Urine specimen obtained by clean catch procedure / Unknown Non-blood Collection / Unknown 07/08/2024 12:59 PM EST 07/08/2024 1:21 PM EST us Jj Wolfe MD LAB MICROBIOLOGY - GENERA L ORDERABLES Final Result [facility] [address] [place] [address], [place] [phone] * Robertson urine culture tube (07/08/2024 12:59 PM EST) Extra Tube Hold for add-ons. 07/08/2024 3:02 PM EST [facility] Comment:Auto resulted. Urine Urine specimen obtained by clean catch procedure / Unknown Non-blood Collection / Unknown 07/08/2024 12:59 PM EST 07/08/2024 1:11 PM EST us Jj Wolfe MD LAB URINE ORDERABLES [place] angelica Result [facility] [address] [place] [address], [place] [phone] * (ABNORMAL) Urinalysis with reflex microscopic and culture (07/08/2024 12:59 PM EST) Pathologist [facility] [place] Specific [place] Urine 1.020 1.003 - 1.030 LAB URINALYSIS - AUTOMATED METHOD 07/08/2024 1:21 PM [facility] pH, Urine 5.5 5.0 - 8.0 pH LAB URINALYSIS - AUTOMATED METHOD 07/08/2024 1:21 PM [facility] Leukocytes, Urine Negative Negative LAB URINALYSIS - AUTOMATED METHOD 07/08/2024 1:21 PM [facility] Nitrite, Urine Negative Negative LAB URINALYSIS - AUTOMATED METHOD 07/08/2024 1:21 PM [facility] Protein, Urine 100(A) <=Trace mg/dL LAB URINALYSIS - AUTOMATED METHOD 07/08/2024 1:21 PM [facility] Glucose, Urine 500(A) Negative mg/dL LAB URINALYSIS - AUTOMATED METHOD 07/08/2024 1:21 PM [facility] Ketones, Urine Negative Negative mg/dL LAB URINALYSIS - AUTOMATED METHOD 07/08/2024 1:21 PM [facility] Urobilinogen, Urine 0.2 0.2 - 1.0 mg/dL LAB URINALYSIS - AUTOMATED METHOD 07/08/2024 1:21 PM [facility] Bilirubin, Urine Negative Negative LAB URINALYSIS - AUTOMATED METHOD 07/08/2024 1:21 PM [facility] Blood, Urine Large(A) Negative LAB URINALYSIS - AUTOMATED METHOD 07/08/2024 1:21 PM [facility] RBC, Urine 21.6(H) 0 - 4 /HPF LAB URINALYSIS - AUTOMATED METHOD 07/08/2024 1:21 PM [facility] WBC, Urine 7.3(H) 0 - 4 /HPF LAB URINALYSIS - AUTOMATED METHOD 07/08/2024 1:21 PM [facility] Squamous Epithelial, Urine 30 0 - 60 /LPF LAB URINALYSIS - AUTOMATED METHOD 07/08/2024 1:21 PM [facility] Bacteria, Urine Negative Negative /HPF LAB URINALYSIS - AUTOMATED METHOD 07/08/2024 1:21 PM [facility] Hyaline Casts, Urine 1.7 0 - 3 /LPF LAB URINALYSIS - AUTOMATED METHOD 07/08/2024 1:21 PM [facility] Urine Urine specimen obtained by clean catch procedure / Unknown Non-blood Collection / Unknown 07/08/2024 12:59 PM EST 07/08/2024 1:11 PM EST Jj Wolfe MD LAB URINE ORDERABLES [place] dominguez Result [facility] [address] [place] [address], * CT Head wo Contrast (07/08/2024 12:11 PM EST) Anatomical Region Laterality Modality Head and Neck Computed Tomogra phy 07/08/2024 12:2 2 PM EST Impressions 07/08/2024 12:23 PM EST NO ACUTE INTRACRANIAL ABNORMALITY. -------- FINAL REPORT -------- Dictated By: GLENNA SOLITARIO Dictated Date: 07/08/2024 12:22 ET Assigned Physician: GLENNA SOLITARIO Reviewed and Electronically Signed By: GLENNA SOLITARIO Signed Date: 07/08/2024 12:23 ET Workstation ID: [id number] Transcribed By: Self Edit Transcribed Date: 07/08/2024 12:22 ET Narrative 07/08/2024 12:23 PM EST PROCEDURE: HEAD CT INDICATION: Trauma, pain TECHNIQUE: CT of the head without intravenous contrast. Multiplanar reformats. The examination was performed utilizing dose reduction techniques. Total DLP 1311 COMPARISON: ??No priors available. FINDINGS: ?? No acute territorial infarct, mass effect, or intracranial hemorrhage. Mild scattered periventricular and subcortical white matter hypodensities are most likely related to chronic small vessel ischemic change. Diffuse cerebral volume loss with prominence of ventricles and sulci. ??No hydrocephalus. Scattered mucosal thickening seen throughout the sinuses. ??Mastoid air cells are clear. ??Bilateral lens implants. No scalp hematoma or skull fracture. Procedure Note Glenna Solitario MD - 07/08/2024 PROCEDURE: HEAD CT INDICATION: Trauma, pain TECHNIQUE: CT of the head without intravenous contrast. Multiplanarreformats. The examination was performed utilizing dose reductiontechniques. Total DLP 1311 COMPARISON: No priors available. FINDINGS: No acute territorial infarct, mass effect, or intracranial hemorrhage. Mild scattered periventricular and subcortical white matter hypodensitiesare most likely related to chronic small vessel ischemic change. Diffuse cerebral volume loss with prominence of ventricles and sulci. Nohydrocephalus. Scattered mucosal thickening seen throughout the sinuses. Mastoid aircells are clear. Bilateral lens implants. No scalp hematoma or skull fracture. IMPRESSION: NO ACUTE INTRACRANIAL ABNORMALITY. -------- FINAL REPORT -------- Dictated By: GLENNA SOLITARIO Dictated Date: 07/08/2024 12:22 ET Assigned Physician: GLENNA SOLITARIO Reviewed and Electronically Signed By: GLENNA SOLITARIO Signed Date: 07/08/2024 12:23 ET Workstation ID: [id number] Transcribed By: Self Edit Transcribed Date: 07/08/2024 12:22 ET Raya HEDRICK IMG CT PROCEDURES [place] Result * CT Cervical Spine wo Contrast (07/08/2024 12:11 PM EST) Anatomical Region Laterality Modality Spine, C-spine Computed Tomogra phy 07/08/2024 12:2 4 PM EST Impressions 07/08/2024 12:27 PM EST No acute cervical spine fracture. -------- FINAL REPORT -------- Dictated By: GLENNA SOLITARIO Dictated Date: 07/08/2024 12:24 ET Assigned Physician: GLENNA SOLITARIO Reviewed and Electronically Signed By: GLENNA SOLITARIO Signed Date: 07/08/2024 12:27 ET Workstation ID: [id number] Transcribed By: Self Edit Transcribed Date: 07/08/2024 12:24 ET Narrative 07/08/2024 12:27 PM EST PROCEDURE: Cervical spine CT INDICATION: Pain TECHNIQUE: Noncontrast CT of the cervical spine with multiplanar reformats. The examination was performed utilizing dose reduction techniques. ??Total DLP 1311 COMPARISON: ??Chest CT 06/17/2024. FINDINGS: ?? No acute fracture or prevertebral swelling. ??Cervical alignment is within normal limits. Multilevel degenerative changes are seen throughout the cervical spine with uncovertebral spurring and facet arthropathy present. Paraspinal muscles are within normal limits. ??Right apical opacity and cavitary nodularity is unchanged compared to prior chest CT. ??No pneumothorax at the lung apices. Procedure Note Glenna Solitario MD - 07/08/2024 PROCEDURE: Cervical spine CT INDICATION: Pain TECHNIQUE: Noncontrast CT of the cervical spine with multiplanarreformats. The examination was performed utilizing dose reduction techniques. TotalDLP 1311 COMPARISON: Chest CT 06/17/2024. FINDINGS: No acute fracture or prevertebral swelling. Cervical alignment is withinnormal limits. Multilevel degenerative changes are seen throughout the cervical spinewith uncovertebral spurring and facet arthropathy present. Paraspinal muscles are within normal limits. Right apical opacity andcavitary nodularity is unchanged compared to prior chest CT. Nopneumothorax at the lung apices. IMPRESSION: No acute cervical spine fracture. -------- FINAL REPORT -------- Dictated By: LGENNA SOLITARIO Dictated Date: 07/08/2024 12:24 ET Assigned Physician: GLENNA SOLITARIO Reviewed and Electronically Signed By: GLENNA SOLITARIO Signed Date: 07/08/2024 12:27 ET Workstation ID: [id number] Transcribed By: Self Edit Transcribed Date: 07/08/2024 12:24 ET Raya HEDRICK IMG CT PROCEDURES [place] Result * (ABNORMAL) Creatine kinase and CKMB (07/08/2024 11:10 AM EST) Total CK 649(H) 22 - 269 unit/L LAB CHEMISTRY METHOD 07/08/2024 3:51 PM EST [facility] Comment:Hemolysis present CK-MB 13.1(H) 1.0 - 3.6 ng/mL LAB CHEMISTRY METHOD 07/08/2024 3:51 PM EST [facility] CK-MB Index 0.0 0.0 - 5.0 LAB CHEMISTRY METHOD 07/08/2024 3:51 PM EST [facility] Blood Venous blood specimen / Unknown Venipuncture / Unknown 07/08/2024 11:10 AM EST 07/08/2024 11:42 AM EST Wayne Donahue MD LAB BLOOD ORDERABLES Final Re sult [facility] [address] [place] [address], * (ABNORMAL) Iron and TIBC (07/08/2024 11:10 AM EST) Iron 20(L) 40 - 150 mcg/dL LAB CHEMISTRY METHOD 07/08/2024 3:44 PM EST [facility] Comment:Hemolysis present TIBC 186(L) 250 - 450 mcg/dL LAB CHEMISTRY METHOD 07/08/2024 3:44 PM EST [facility] Iron Saturation 11(L) 15 - 50 % LAB CHEMISTRY METHOD 07/08/2024 3:44 PM EST [facility] Blood Venous blood specimen / Unknown Venipuncture / Unknown 07/08/2024 11:10 AM EST 07/08/2024 11:42 AM EST us Wayne Donahue MD LAB BLOOD ORDERABLES Final Re sult Performing Organization Address City/[facility]/ZIP Co de Phone Number [facility] [address] [place] [address], [place] [phone] * (ABNORMAL) Ferritin (07/08/2024 11:10 AM EST) [facility] Ferritin 708(H) 8 - 252 ng/mL LAB CHEMISTRY METHOD 07/08/2024 3:51 PM EST [facility] Blood Venous blood specimen / Unknown Venipuncture / Unknown 07/08/2024 11:10 AM EST 07/08/2024 11:42 AM EST us Wayne Donahue MD LAB BLOOD ORDERABLES Final Re sult Performing Organization Address City/[facility]/ZIP Co de Phone Number [facility] [address] [place] [address], [place] [phone] * (ABNORMAL) Reticulocyte count (07/08/2024 11:10 AM EST) Retic Ct Abs 0.050 0.030 - 0.090 M/mcL LAB HEMETOLOGY METHOD 07/08/2024 2:52 PM EST [facility] Retic Ct Pct 1.4 0.7 - 1.7 % LAB HEMETOLOGY METHOD 07/08/2024 2:52 PM [facility] Immature Retic Fract 24.5(H) 2.3 - 15.9 % LAB HEMETOLOGY METHOD 07/08/2024 2:52 PM [facility] Reticulocyte Hemoglobin 22.5(L) >29.0 pcg LAB HEMETOLOGY METHOD 07/08/2024 2:52 PM EST [facility] Blood Venous blood specimen / Unknown Venipuncture / Unknown 07/08/2024 11:10 AM EST 07/08/2024 11:42 AM EST us Wayne Donahue MD LAB BLOOD ORDERABLES Final Re sult Performing Organization Address [facility]/ZIP Co de Phone Number [facility] [address] [place] [address], [place] [phone] * (ABNORMAL) Haptoglobin (07/08/2024 11:10 AM EST) Pathologist [facility] [place] Haptoglobin 570(H) 16 - 200 mg/dL LAB CHEMISTRY METHOD 07/08/2024 3:44 PM EST [facility] Blood Venous blood specimen / Unknown Venipuncture / Unknown 07/08/2024 11:10 AM EST 07/08/2024 11:42 AM EST us Wayne Donahue MD LAB BLOOD ORDERABLES Final Re sult Performing Organization Address [facility]/ZIP Co de Phone Number [facility] [address] [place] [address], [place] [phone] * (ABNORMAL) Folate (07/08/2024 11:10 AM EST) Pathologist [facility] [place] Folate >20.0(H) 2.8 - 17.0 ng/ml LAB CHEMISTRY METHOD 07/08/2024 3:51 PM EST [facility] Blood Venous blood specimen / Unknown Venipuncture / Unknown 07/08/2024 11:10 AM EST 07/08/2024 11:42 AM EST us Wayne Donahue MD LAB BLOOD ORDERABLES Final Re sult [facility] [address] [place] [address], [place] [phone] * Vitamin B12 (07/08/2024 11:10 AM EST) Vitamin B-12 384 250 - 900 pcg/mL LAB CHEMISTRY METHOD 07/08/2024 3:51 PM EST [facility] Blood Venous blood specimen / Unknown Venipuncture / Unknown 07/08/2024 11:10 AM EST 07/08/2024 11:42 AM EST Wayne Donahue MD LAB BLOOD ORDERABLES Final Re sult [facility] [address] [place] [address], * Cortisol (07/08/2024 11:10 AM EST) Pathologist [facility] [place] Cortisol 58.1 mcg/dL LAB CHEMISTRY METHOD 07/08/2024 3:38 PM EST [facility] Blood Venous blood specimen / Unknown Venipuncture / Unknown 07/08/2024 11:10 AM EST 07/08/2024 11:42 AM EST Narrative [facility] - 07/08/2024 3:38 PM EST CORTISOL REFERENCE RANGE ?? 8 AM SPEC: ??5.0-23.0 mcg/dL ?? 4 PM SPEC: ??3.0-16.0 mcg/dL ?? 8 PM SPEC: ??<5.0 mcg/dL Wayne Donahue MD LAB BLOOD ORDERABLES Final Re sult [facility] [address] [place] [address], * (ABNORMAL) Thyroid stimulating hormone (07/08/2024 11:10 AM EST) TSH 4.50(H) 0.40 - 4.00 mcIU/mL LAB CHEMISTRY METHOD 07/08/2024 3:31 PM EST [facility] Blood Venous blood specimen / Unknown Venipuncture / Unknown 07/08/2024 11:10 AM EST 07/08/2024 11:42 AM EST us Wayne Donahue MD LAB BLOOD ORDERABLES Final Re sult Performing Organization Address City[facility]/ZIP Co de Phone Number [facility] [address] [place] [address], [place] [phone] * Uric acid (07/08/2024 11:10 AM EST) Uric Acid 7.2 3.1 - 7.8 mg/dL LAB CHEMISTRY METHOD 07/08/2024 3:44 PM EST [facility] Blood Venous blood specimen / Unknown Venipuncture / Unknown 07/08/2024 11:10 AM EST 07/08/2024 11:42 AM EST us Wayne Donahue MD LAB BLOOD ORDERABLES Final Re sult Performing Organization Address [facility]/ZIP Co de Phone Number [facility] [address] [place] [address], [place] [phone] * (ABNORMAL) Osmolality (07/08/2024 11:10 AM EST) Pathologist [facility] [place] Osmolality Iván 307(H) 280 - 300 mOsm/kg LAB CHEMISTRY METHOD 07/08/2024 6:51 PM EST [facility] Blood Venous blood specimen / Unknown Venipuncture / Unknown 07/08/2024 11:10 AM EST 07/08/2024 11:42 AM EST us Wayne Donahue MD LAB BLOOD ORDERABLES Final Re sult [facility] [address] [place] [address], [place] [phone] * (ABNORMAL) Parathyroid hormone intact (07/08/2024 11:10 AM EST) PTH 6.5(L) 18.5 - 88.0 pcg/mL LAB CHEMISTRY METHOD 07/08/2024 3:31 PM [facility] Blood Venous blood specimen / Unknown Venipuncture / Unknown 07/08/2024 11:10 AM EST 07/08/2024 11:42 AM EST Wayne Donahue MD LAB BLOOD ORDERABLES Final Re sult [facility] [address] [place] [address], * (ABNORMAL) CBC auto differential (07/08/2024 11:10 AM EST) WBC 18.9(H) 4.8 - 10.8 K/mcL LAB HEMETOLOGY METHOD 07/08/2024 11:51 AM [facility] RBC 3.30(L) 3.80 - 4.80 M/mcL LAB HEMETOLOGY METHOD 07/08/2024 11:51 AM [facility] Hemoglobin 7.3(L) 11.5 - 16.0 g/dL LAB HEMETOLOGY METHOD 07/08/2024 11:51 AM [facility] Hematocrit 23.7(L) 35.0 - 47.0 % LAB HEMETOLOGY METHOD 07/08/2024 11:51 AM [facility] MCV 72.3(L) 79.0 - 98.0 FL LAB HEMETOLOGY METHOD 07/08/2024 11:51 AM [facility] MCH 22.3(L) 27.0 - 32.0 pcg LAB HEMETOLOGY METHOD 07/08/2024 11:51 AM [facility] MCHC 30.8(L) 32.0 - 37.0 g/dL LAB HEMETOLOGY METHOD 07/08/2024 11:51 AM [facility] RDW 16.4(H) 11.0 - 15.0 % LAB HEMETOLOGY METHOD 07/08/2024 11:51 AM [facility] Platelets 408(H) 130 - 400 K/mcL LAB HEMETOLOGY METHOD 07/08/2024 11:51 AM [facility] MPV 8.9 7.0 - 11.0 FL LAB HEMETOLOGY METHOD 07/08/2024 11:51 AM [facility] NRBC 0.0 <1.0 % LAB HEMETOLOGY METHOD 07/08/2024 11:51 AM [facility] NRBC Absolute 0.00 <0.10 K/mcL LAB HEMETOLOGY METHOD 07/08/2024 11:51 AM [facility] Neutrophils Relative 89.5 % LAB HEMETOLOGY METHOD 07/08/2024 11:51 AM [facility] Lymphocytes Relative 2.4 % LAB HEMETOLOGY METHOD 07/08/2024 11:51 AM [facility] Monocytes Relative 7.0 % LAB HEMETOLOGY METHOD 07/08/2024 11:51 AM [facility] Eosinophils Relative 0.2 % LAB HEMETOLOGY METHOD 07/08/2024 11:51 AM [facility] Basophils Relative 0.2 % LAB HEMETOLOGY METHOD 07/08/2024 11:51 AM [facility] Immature Granulocytes Relative 0.7 % LAB HEMETOLOGY METHOD 07/08/2024 11:51 AM [facility] Neutrophils Absolute 16.86(H) 1.50 - 7.00 K/mcL LAB HEMETOLOGY METHOD 07/08/2024 11:51 AM [facility] Lymphocytes Absolute 0.46(L) 1.00 - 5.00 K/mcL LAB HEMETOLOGY METHOD 07/08/2024 11:51 AM EST [facility] Monocytes Absolute 1.32(H) 0.20 - 1.00 K/[facility] LAB HEMETOLOGY METHOD 07/08/2024 11:51 AM [facility] Eosinophils Absolute 0.04 0.00 - 0.50 K/[facility] LAB HEMETOLOGY METHOD 07/08/2024 11:51 AM EST [facility] Basophils Absolute 0.04 0.00 - 0.20 K/[facility] LAB HEMETOLOGY METHOD 07/08/2024 11:51 AM [facility] Immature Granulocytes Absolute 0.13(H) 0.00 - 0.03 K/[facility] LAB HEMETOLOGY METHOD 07/08/2024 11:51 AM [facility] Blood Venous blood specimen / Unknown Venipuncture / Unknown 07/08/2024 11:10 AM EST 07/08/2024 11:42 AM EST Jj Wolfe MD LAB BLOOD ORDERABLES [place] Result [facility] [address] [place] [address], [place] [phone] * B-type natriuretic peptide (07/08/2024 11:10 AM EST) BNP 86 <=100 pcg/mL LAB CHEMISTRY METHOD 07/08/2024 12:26 PM EST [facility] Blood Venous blood specimen / Unknown Venipuncture / Unknown 07/08/2024 11:10 AM EST 07/08/2024 11:42 AM EST Jj Wolfe MD LAB BLOOD ORDERABLES [place] Result [facility] [address] [place] [address], [place] [phone] * Magnesium (07/08/2024 11:10 AM EST) Magnesium 2.1 1.9 - 2.6 mg/dL LAB CHEMISTRY METHOD 07/08/2024 12:54 PM EST [facility] Comment:Hemolysis present Blood Venous blood specimen / Unknown Venipuncture / Unknown 07/08/2024 11:10 AM EST 07/08/2024 11:42 AM EST Jj Wolfe MD LAB BLOOD ORDERABLES [place] Result [facility] [address] [place] [address], [place] [phone] * (ABNORMAL) Lipase (07/08/2024 11:10 AM EST) Pathologist [facility] [place] Lipase <10(L) 13 - 75 unit/L LAB CHEMISTRY METHOD 07/08/2024 12:54 PM EST [facility] Blood Venous blood specimen / Unknown Venipuncture / Unknown 07/08/2024 11:10 AM EST 07/08/2024 11:42 AM EST Jj Wolfe MD LAB BLOOD ORDERABLES [place] Result [facility] [address] [place] [address], [place] [phone] * (ABNORMAL) Comprehensive metabolic panel (07/08/2024 11:10 AM EST) Sodium 126(L) 133 - 145 mmol/L LAB CHEMISTRY METHOD 07/08/2024 12:54 PM EST [facility] Potassium 4.2 3.5 - 5.5 mmol/L LAB CHEMISTRY METHOD 07/08/2024 12:54 PM EST [facility] Comment:Hemolysis present Chloride 93(L) 96 - 110 mmol/L LAB CHEMISTRY METHOD 07/08/2024 12:54 PM [facility] CO2 21 21 - 32 mmol/L LAB CHEMISTRY METHOD 07/08/2024 12:54 PM [facility] Anion Gap 12(H) 3 - 11 LAB CHEMISTRY METHOD 07/08/2024 12:54 PM [facility] Glucose 265(H) 70 - 100 mg/dL LAB CHEMISTRY METHOD 07/08/2024 12:54 PM [facility] BUN 59(H) 5 - 25 mg/dL LAB CHEMISTRY METHOD 07/08/2024 12:54 PM [facility] Comment:Results verified by repeat testing Creatinine 4.10(H) 0.50 - 1.10 mg/dL LAB CHEMISTRY METHOD 07/08/2024 12:54 PM [facility] Comment:Results verified by repeat testing eGFR 10(L) >=60 mL/min/1. 73m2 LAB CHEMISTRY METHOD 07/08/2024 12:54 PM [facility] Comment:Calculation based on the??Chronic Kidney Disease Epidemiology Collaboration (CKD-EPI) equation refit??without adjustment for race. BUN/Creatinine Ratio 14.4 LAB CHEMISTRY METHOD 07/08/2024 12:54 PM [facility] Calcium 10.6(H) 8.5 - 10.5 mg/dL LAB CHEMISTRY METHOD 07/08/2024 12:54 PM [facility] AST (SGOT) 57(H) 10 - 42 unit/L LAB CHEMISTRY METHOD 07/08/2024 12:54 PM [facility] Comment:Hemolysis present ALT (SGPT) 39 10 - 60 unit/L LAB CHEMISTRY METHOD 07/08/2024 12:54 PM [facility] Alkaline Phosphatase 149(H) 42 - 121 unit/L LAB CHEMISTRY METHOD 07/08/2024 12:54 PM [facility] Total Protein 6.3 6.0 - 8.0 g/dL LAB CHEMISTRY METHOD 07/08/2024 12:54 PM EST [facility] Albumin 2.1(L) 3.2 - 5.0 g/dL LAB CHEMISTRY METHOD 07/08/2024 12:54 PM EST [facility] Total Bilirubin 0.4 0.0 - 1.4 mg/dL LAB CHEMISTRY METHOD 07/08/2024 12:54 PM EST [facility] Blood Venous blood specimen / Unknown Venipuncture / Unknown 07/08/2024 11:10 AM EST 07/08/2024 11:42 AM EST Jj Wolfe MD LAB BLOOD ORDERABLES [place] Result Performing Organization Address [facility]/ZIP Co de Phone Number [facility] [address] [place] [address], [place] [phone] * (ABNORMAL) Troponin I high sensitivity (07/08/2024 11:10 AM EST) [facility] High Sensitivity Troponin I 80(H) <=54 ng/L LAB CHEMISTRY METHOD 07/08/2024 12:20 PM EST [facility] Blood Venous blood specimen / Unknown Venipuncture / Unknown 07/08/2024 11:10 AM EST 07/08/2024 11:42 AM EST Narrative [facility] - 07/08/2024 12:20 PM EST High levels of biotin in samples may falsely decrease hsTroponin values. ??Use caution when interpreting hsTroponin results in patients taking biotin who exhibit renal impairment (eGFR <60) or in patients taking more than 20 mg/day of biotin. us Jj Wolfe MD LAB BLOOD ORDERABLES [place] Result Performing Organization Address City/[facility]/ZIP Co de Phone Number [facility] [address] [place] [address], [place] [phone] * ECG 12 lead (07/08/2024 10:46 AM EST) Ventricular Rate ECG 94 BPM GEMUSE Atrial Rate 94 BPM GEMUSE P-R Interval 196 ms GEMUSE QRS Duration 118 ms GEMUSE Q-T Interval 354 ms GEMUSE QTc 442 ms GEMUSE P Wave [place] 79 degrees GEMUSE R [place] 15 degrees GEMUSE T [place] 4 degrees GEMUSE ECG Interpretation Sinus rhythm with occasional Premature ventricular complexes Incomplete right bundle branch block Abnormal ECG When compared with ECG of 17-JUN-2024 08:35, Premature ventricular complexes are now Present ST now depressed in Lateral leads Confirmed by CHARLES HERNÁNDEZ ([id number]) on 07/09/2024 5:47:06 PM GEMUSE 07/08/2024 10:4 6 AM EST 07/09/2024 5:47 PM EST us Aye HEDRICK ECG ORDERABLES Final Result GEMUSE documented in this encounter Visit Diagnoses Diagnosis Acute encephalopathy- Primary Anemia, unspecified type Hyponatremia Hyposmolality and/or hyponatremia Acute on chronic renal insufficiency Acute kidney failure, unspecified Acute encephalopathy Bilateral leg edema Edema Pulmonary nodule Other diseases of lung, not elsewhere classified documented in this encounter Admitting Diagnoses Diagnosis Acute encephalopathy Pulmonary nodule Other diseases of lung, not elsewhere classified documented in this encounter Administered Medications Inactive Administered Medications - up to 3 most recent administrations Medication Order MAR Action Action Date Dose Rate Site acetaminophen (TYLENOL) tablet 650 mg 650 mg, oral, Every 6 hours PRN, mild pain, fever - temperature GREATER than 38 C (100.4 F), Starting on Thu07/08/24 at 1437 Given 08/05/2024 9:25 PM EST 650 mg Given 08/04/2024 9:34 PM EST 650 mg Given 08/02/2024 9:02 PM EST 650 mg acetaminophen (TYLENOL) tablet 650 mg 650 mg, oral, Once, On Soco 07/28/24 at 1400, For 1 dose, Give 30 to 60 minutes prior to rituximab-abbs infusion Given 07/28/2024 2:28 PM EST 650 mg acetaminophen (TYLENOL) tablet 650 mg 650 mg, oral, Once as needed, mild pain, headaches, fever - temperature GREATER than 38 C (100.4 F), Starting on Soco 07/28/24 at 1140, For 1 dose albumin human 25 % infusion 25 g 25 g, intravenous, Every 4 hours, First dose on Thu07/12/24 at 1245, For 3 doses, FOR HYPOVOLEMIC SHOCK: Infuse 5% Albumin as rapidly as tolerated (500 mL over 1 - 2 hr) or (250 mL over 30 - 60 min), as blood volume approaches normal then infusion rate should not exceed 1 mL/min. Infusing too rapidly may cause vascular overload which may lead to pulmonary edema or cardiac failure. ROUTINE REPLACEMENT: (non-critical) Infuse 5% or 25% Albumin @ 100 mL/hr for routine albumin replacement in non-critical situations. Faster infusion rates are appropriate for hypovolemic shock (see above). ADMINISTRATION NOTE: A 15-micron filter is only required for Buminate; however, filters are NOT required for all other brands (Albuked, Albuminar, Albuminex, AlbuRx, Albutein, Flexbumin, Kedbumin, Plasbumin). Do not exceed 1 mL/minute in patients with normal plasma volume; 3 mL/minute in patients with hypoproteinemia., Indications: hypoalbuminemiaIndications:hypoalbu minemia New Bag 07/12/2024 9:13 PM EST 25 g 100 mL/hr New Bag 07/12/2024 5:05 PM EST 25 g New Bag 07/12/2024 1:21 PM EST 25 g albumin human 25 % infusion 25 g 25 g, intravenous, Every 6 hours scheduled, First dose on Thu07/13/24 at 1215, For 6 doses, FOR HYPOVOLEMIC SHOCK: Infuse 5% Albumin as rapidly as tolerated (500 mL over 1 - 2 hr) or (250 mL over 30 - 60 min), as blood volume approaches normal then infusion rate should not exceed 1 mL/min. Infusing too rapidly may cause vascular overload which may lead to pulmonary edema or cardiac failure. ROUTINE REPLACEMENT: (non-critical) Infuse 5% or 25% Albumin @ 100 mL/hr for routine albumin replacement in non-critical situations. Faster infusion rates are appropriate for hypovolemic shock (see above). ADMINISTRATION NOTE: A 15-micron filter is only required for Buminate; however, filters are NOT required for all other brands (Albuked, Albuminar, Albuminex, AlbuRx, Albutein, Flexbumin, Kedbumin, Plasbumin). Do not exceed 1 mL/minute in patients with normal plasma volume; 3 mL/minute in patients with hypoproteinemia., Indications: hypoalbuminemiaIndications:hypoalbuminemia New Bag 07/14/2024 9:25 PM EST 2 5 g New Bag 07/14/2024 5:22 PM EST 25 g New Bag 07/14/2024 9:29 AM EST 25 g albuterol 2.5 mg /3 mL (0.083 %) nebulizer solution 2.5 mg 2.5 mg, nebulization, Every 10 min PRN, shortness of breath, Starting on Soco 07/28/24 at 1140, For 2 doses, -May repeat once if symptoms unresolved -Administer with 8L of oxygen apixaban (ELIQUIS) tablet 10 mg 10 mg, oral, 2 times daily, First dose on 07/30/24 at 1145, For 7 days, Indication: VTE/PE Treatment, On hold since Thu08/03/2024 at 0821 until manually unheld Given 08/02/2024 9:02 PM EST 10 mg Given 08/02/2024 8:41 AM EST 10 mg Given 08/01/2024 8:50 PM EST 10 mg apixaban (ELIQUIS) tablet 5 mg 5 mg, oral, 2 times daily, First dose (after last modification) on 08/06/24 at 0945, Indication: VTE/PE Treatment Given 08/06/2024 9:30 AM EST 5 mg atorvastatin (LIPITOR) tablet 10 mg 10 mg, oral, Nightly, First dose on 07/09/24 at 2100 Given 08/05/2024 9:25 PM EST 10 mg Given 08/04/2024 8:53 PM EST 10 mg Given 08/03/2024 9:59 PM EST 10 mg B complex-vitamin C-folic acid (NEPHRO-SAVITA) tablet 1 tablet 1 tablet (1 each), oral, Daily, First dose on 07/18/24 at 1700 Given 08/06/2024 9:30 AM EST 1 tablet Given 08/04/2024 8:53 AM EST 1 tablet Given 08/02/2024 8:41 AM EST 1 tablet benzonatate (TESSALON) capsule 100 mg 100 mg, oral, 3 times daily PRN, cough, Starting on Thu07/15/24 at 0957, Cough Do not crush or chew., Indications: coughIndications:cough Given 07/28/2024 11:18 PM EST 100 mg Given 07/21/2024 9:16 PM EST 100 mg Given 07/21/2024 8:34 AM EST 100 mg dextrose (D50W) 50% injection 12.5 g 12.5 g, intravenous, Every 15 min PRN, low blood sugar, moderate hypoglycemia *Patient is Unconscious, NPO, unable to swallow: BG 54 - 69 mg/dl*, Starting on Thu07/08/24 at 1649 dextrose (D50W) 50% injection 25 g 25 g, intravenous, Every 15 min PRN, low blood sugar, severe hypoglycemia *Patient is Unconscious, NPO, unable to swallow: BG LESS than 54 mg/dL*, Starting on Thu07/08/24 at 1649 dextrose 15 gram/60 mL oral solution 15 g 15 g, oral, Every 15 min PRN, low blood sugar, hypoglycemia *Patient conscious AND able to drink and swallow safely*, Starting on Thu07/08/24 at 1649 dextrose 15 gram/60 mL oral solution 30 g 30 g, oral, Every 15 min PRN, low blood sugar, hypoglycemia *Patient conscious AND able to drink and swallow safely*, Starting on Thu07/08/24 at 1649 diphenhydrAMINE (BENADRYL) injection 25 mg 25 mg, intravenous, Once, On Thu07/28/24 at 1400, For 1 dose, Give slow IV push 30 to 60 minutes prior to rituximab-abbs infusion Given 07/28/2024 2:28 PM EST 25 mg diphenhydrAMINE (BENADRYL) injection 25 mg 25 mg, intravenous, Once as needed, for Moderate hypersensitivity / infusion reaction (grade 2) symptoms, Starting on Thu07/28/24 at 1140, For 1 dose, Use as needed for Moderate hypersensitivity / infusion reaction (grade 2) symptoms include: -Flushing -Dizziness -Back pain -Rigors -Localized hives/rash -Pruritis -Nausea -Vomiting -Abdominal cramping -Temperature GREATER than 100.5 F -Uneasiness -Agitation -Feeling of impending doom Use with caution in patients over 60 years of age, or with asthma diphenhydrAMINE (BENADRYL) injection 50 mg 50 mg, intravenous, Once as needed, for Severe hypersensitivity / infusion reaction (grade 3) symptoms, Starting on Thu07/28/24 at 1140, For 1 dose, Use as needed for Severe hypersensitivity / infusion reaction (grade 3) symptoms include: -Hypoxemia -Dyspsea -Bradycardia OR Tachycardia -Chest pain/pressure -Cognitive changes -Systolic BP LESS than 90 mmHg -Generalized rash Only administer If not given within past 2 hours If patient has severe hypotension, give after hypotensive episode is resolved Use with caution in patients over 60 years of age, or with asthma docusate sodium (COLACE) capsule 100 mg 100 mg, oral, 2 times daily, First dose on Thu07/21/24 at 2100 Given 08/04/2024 9:01 PM EST 100 mg Given 08/04/2024 8:53 AM EST 100 mg Given 08/03/2024 9:59 PM EST 100 mg EPINEPHrine (ADRENALIN) IM Kit - adult 0.3 mg 0.3 mg, intramuscular, Every 15 min PRN, anaphylaxis, For systolic BP LESS than 90 mmHg, Starting on Thu07/28/24 at 1140, For 3 doses, May repeat every 15 minutes as needed for a maximum of 3 doses famotidine (PF) (PEPCID) injection 20 mg 20 mg, intravenous, Administer over 2 Minutes, Once as needed, heartburn, for Severe hypersensitivity / infusion reaction (grade 3) symptoms, Starting on Thu07/28/24 at 1140, For 1 dose, Use as needed for Severe hypersensitivity / infusion reaction (grade 3) symptoms include: -Hypoxemia -Dyspsea -Bradycardia OR Tachycardia -Chest pain/pressure -Cognitive changes -Systolic BP LESS than 90 mmHg -Generalized rash -Dilute with 10 mL of 0.9% normal saline -IV push over at least 2 minutes fentaNYL (PF) (SUBLIMAZE) injection intravenous, As needed, Starting on Thu07/15/24 at 1507, Intraprocedure Given 07/15/2024 3:15 PM EST 25 mcg Given 07/15/2024 3:07 PM EST 25 mcg fentaNYL (PF) (SUBLIMAZE) injection intravenous, As needed, Starting on Thu07/22/24 at 1508, Intraprocedure Given 07/22/2024 3:17 PM EST 25 mcg Given 07/22/2024 3:08 PM EST 25 mcg ferric gluconate (FERRLECIT) 125 mg in sodium chloride 0.9 % 110 mL IVPB 125 mg, intravenous, at 110 mL/hr, Administer over 60 Minutes, Daily, First dose on Thu07/11/24 at 0900, For 5 doses New Bag 07/15/2024 9:20 AM EST 125 mg 110 mL/hr New Bag 07/14/2024 11:40 AM EST 125 mg 110 mL/hr New Bag 07/13/2024 10:29 AM EST 125 mg 110 mL/hr furosemide (LASIX) injection 40 mg 40 mg, intravenous, Once, On Thu07/13/24 at 1030, For 1 dose Given 07/13/2024 10:29 AM EST 40 mg Glucagon HCl (rDNA) injection 1 mg 1 mg, intramuscular, Once as needed, low blood sugar, severe hypoglycemia, Starting on Thu07/08/24 at 1649, For 1 dose heparin (UFH) bolus from infusion 3,144 Units 3,144 Units (40 Units/kg ? 78.6 kg), intravenous, Every 6 hours PRN, Per current Anti-Xa result, Starting on Soco 07/21/24 at 2055, Bolus from infusion. Suggested bolus infusion time is over 10 minutes., Indication: Treatment of Venous Thromboembolism (i.e. VTE,PE) Bolus from Bag 07/25/2024 6:07 AM EST 3,144 Units heparin (UFH) bolus from infusion 6,288 Units 6,288 Units (80 Units/kg ? 78.6 kg), intravenous, Every 6 hours PRN, Per current Anti-Xa result, Starting on Soco 07/21/24 at 2055, Bolus from infusion. Suggested bolus infusion time is over 10 minutes., Indication: Treatment of Venous Thromboembolism (i.e. VTE,PE) Bolus from Bag 07/27/2024 3:17 PM EST 6,288 Units Bolus from Bag 07/22/2024 7:57 PM EST 6,288 Units heparin (UFH) bolus from infusion 6,448 Units 6,448 Units (80 Units/kg ? 80.6 kg), intravenous, Every 6 hours PRN, Per current Anti-Xa result, Starting on 07/16/24 at 2210, Bolus from infusion. Suggested bolus infusion time is over 10 minutes., Indication: Treatment of Venous Thromboembolism (i.e. VTE,PE) Bolus from Bag 07/18/2024 1:14 AM EST 6,448 Units Bolus from Bag 07/17/2024 1:19 AM EST 6,448 Units heparin (UFH) bolus from infusion 6,592 Units 6,592 Units (80 Units/kg ? 82.4 kg), intravenous, Once, On Soco 07/21/24 at 1345, For 1 dose, *Initial bolus for patients LESS than 100 kg* *Maximum dose 8000 units* Bolus from infusion. Suggested bolus infusion time is over 10 minutes., Indication: Treatment of Venous Thromboembolism (i.e. VTE,PE) Bolus from Bag 07/21/2024 3:31 PM EST 6,592 Units heparin infusion 100 units/mL in D5W 18 Units/kg/hr ? 80.6 kg (14.508 mL/hr, rounded to 14.5 mL/hr), intravenous, Continuous, Starting on 07/16/24 at 1830 New Bag 07/19/2024 8:25 PM EST 28.04 Units/kg/hr 22.6 mL/hr New Bag 07/19/2024 9:10 AM EST 28 Units/kg/hr 22.6 mL/h r New Bag 07/18/2024 9:44 PM EST 28.04 Units/kg/hr 22.6 m L/hr heparin infusion 100 units/mL in D5W 18 Units/kg/hr ? 82.4 kg (14.832 mL/hr, rounded to 14.8 mL/hr), intravenous, Continuous, Starting on Soco 07/21/24 at 1345 New Bag 07/21/2024 3:25 PM EST 18 Units/kg/hr 14.8 mL/hr heparin infusion 100 units/mL in D5W 18 Units/kg/hr ? 78.6 kg (14.148 mL/hr, rounded to 14.1 mL/hr), intravenous, Continuous, Starting on Soco 07/21/24 at 2115 New Bag 07/30/2024 12:37 AM EST 23 Units/kg/hr 18.1 mL/hr New Bag 07/29/2024 11:33 AM EST 23 Units/kg/hr 18.1 mL/ hr New Bag 07/28/2024 11:01 PM EST 23 Units/kg/hr 18.1 mL/ hr hydrALAZINE (APRESOLINE) injection 10 mg 10 mg, intravenous, Once, On Thu07/08/24 at 2215, For 1 dose Given 07/08/2024 10:05 PM EST 10 mg hydrALAZINE (APRESOLINE) injection 10 mg 10 mg, intravenous, Every 6 hours PRN, systolic BP greater than:, SBP>160, Starting on 07/09/24 at 1504 hydrocortisone sod succ (PF) (SOLU-CORTEF) injection 100 mg 100 mg, intravenous, Once as needed, for Severe hypersensitivity / infusion reaction (grade 3) symptoms, Starting on Soco 07/28/24 at 1140, For 1 dose, Use as needed for Severe hypersensitivity / infusion reaction (grade 3) symptoms include: -Hypoxemia -Dyspsea -Bradycardia OR Tachycardia -Chest pain/pressure -Cognitive changes -Systolic BP LESS than 90 mmHg -Generalized rash Administer over 2 minutes HYDROmorphone (PF) injection 0.5 mg 0.5 mg, intravenous, Every 3 hours PRN, severe pain or when therapies for moderate pain were not effective, Starting on Thu07/08/24 at 1437 insulin glargine (LANTUS) injection 10 Units 10 Units, subcutaneous, Nightly, First dose (after last modification) on Thu07/17/24 at 2230, Notify provider: -If patient is currently or will become NPO -If TPN was or will be interrupted or discontinued -For approval to hold long acting insulin Given 08/05/2024 9:25 PM EST 10 Units Left Upper Arm (Back) Given 08/04/2024 9:02 PM EST 10 Units Ri ght Upper Arm (Back) Given 08/03/2024 9:59 PM EST 10 Units Ri ght Lower Abdomen insulin glargine (LANTUS) injection 8 Units 8 Units, subcutaneous, Nightly, First dose on Thu07/11/24 at 2100, Notify provider: -If patient is currently or will become NPO -If TPN was or will be interrupted or discontinued -For approval to hold long acting insulin Given 07/16/2024 9:58 PM EST 8 Units Left Lower Abdomen Given 07/15/2024 10:28 PM EST 8 Units R ight Upper Arm (Back) Given 07/14/2024 9:24 PM EST 8 Units Ri ght Lower Abdomen insulin lispro injection 1-6 Units 1-6 Units, subcutaneous, 4 times daily before meals and nightly, First dose on Thu07/08/24 at 1650, Indication: Total Daily Dose (TDD) LESS than 40 units Correction Scale: Low Dose Administer with meal and/or mealtime dose of insulin to correct high blood glucose If mealtime insulin dose not given (e.g. patient NPO or not eating), still administer correction factor for high blood glucose Given 08/06/2024 11:28 AM EST 1 Units Left Upper Arm (Back ) Given 08/05/2024 9:24 PM EST 3 Units Le ft Upper Arm (Back) Given 08/05/2024 4:47 PM EST 3 Units Le ft Upper Arm (Back) insulin lispro injection 2 Units 2 Units, subcutaneous, 3 times daily with meals, First dose on Thu07/11/24 at 1800, Mealtime Insulin - Administer with meal --- -Do NOT give if patient NPO or expected to eat LESS than 50% of meal -If pre-meal glucose LESS than OR equal to 70 mg/dL- treat hypoglycemia and notify provider Given 07/17/2024 4:52 PM EST 2 Units Right Upper Arm (Back) Given 07/17/2024 12:00 PM EST 2 Units R ight Upper Arm (Back) Given 07/17/2024 8:50 AM EST 2 Units Ri ght Upper Arm (Back) insulin lispro injection 3 Units 3 Units, subcutaneous, Once, On Thu07/08/24 at 2245, For 1 dose Given 07/08/2024 10:23 PM EST 3 Units Left Lower Abdomen insulin lispro injection 3 Units 3 Units, subcutaneous, 3 times daily before meals, First dose (after last modification) on Thu07/18/24 at 0730, Mealtime Insulin - Administer with meal ------ -Do NOT give if patient NPO or expected to eat LESS than 50% of meal -If pre-meal glucose LESS than OR equal to 70 mg/dL- treat hypoglycemia and notify provider Given 08/06/2024 11:28 AM EST 3 Units Left Upper Arm (Back ) Given 08/05/2024 4:46 PM EST 3 Units Le ft Upper Arm (Back) Given 08/04/2024 5:46 PM EST 3 Units Le ft Upper Arm (Back) lactated Ringer's infusion 75 mL/hr, intravenous, Continuous, Starting on Thu07/10/24 at 2030, For 10 hours New Bag 07/10/2024 10:11 PM EST 75 mL/hr 75 mL/hr lactated Ringer's infusion 100 mL/hr, intravenous, Continuous, Starting on Thu07/11/24 at 1130 New Bag 07/12/2024 5:25 AM EST 100 mL/hr 100 mL/hr Rate/Dose Verify 07/12/2024 5:24 AM EST 100 mL/hr 100 mL/ hr New Bag 07/11/2024 10:03 PM EST 100 mL/hr 100 mL/hr lactulose (CHRONULAC) solution 20 g 20 g, oral, Once, On Soco 07/21/24 at 1615, For 1 dose Given 07/21/2024 4:24 PM EST 20 g lidocaine (XYLOCAINE) 1 % injection As needed, Starting on Thu07/15/24 at 1525, Intraprocedure Given 07/15/2024 3:25 PM EST 8 mL lidocaine-EPINEPHrine (XYLOCAINE W/EPI) 1 %-1:100,000 injection As needed, Starting on Thu07/15/24 at 1525, Intraprocedure Given 07/15/2024 3:25 PM EST 8 mL Chest methylPREDNISolone sodium succ (SOLU-Medrol) 500 mg in sodium chloride 0.9 % 100 mL IVPB 500 mg, intravenous, at 200 mL/hr, Administer over 30 Minutes, Every 24 hours scheduled, First dose on Soco 07/21/24 at 1400, For 3 doses New Bag 07/23/2024 12:34 PM EST 500 mg 200 mL/hr New Bag 07/22/2024 4:15 PM EST 500 mg 200 mL/hr New Bag 07/21/2024 4:21 PM EST 500 mg 200 mL/hr midazolam (VERSED) injection intravenous, As needed, Starting on Thu07/15/24 at 1507, Intraprocedure Given 07/15/2024 3:16 PM EST 0.5 mg Given 07/15/2024 3:07 PM EST 0.5 mg midazolam (VERSED) injection intravenous, As needed, Starting on Thu07/22/24 at 1508, Intraprocedure Given 07/22/2024 3:17 PM EST 0.5 mg Given 07/22/2024 3:08 PM EST 1 mg naloxone (NARCAN) injection 0.04 mg 0.04 mg, intravenous, As needed, opioid reversal, IV Push every 1 min for 10 doses, Starting on Thu07/08/24 at 1437, For 10 doses, To Dilute: -Use 0.4 mg/mL vial , withdraw 1 mL and add 9 mL NS -FOLLOWING DILUTION, dose of 0.04 mg = 1 mL For PARTIAL Opioid Reversal: -For respiratory rate LESS than 10 or Pasero Opioid-induced Sedation Scale (POSS) equal to 4 -May be repeated at 1 minute intervals to restore adequate respirations -Administer up to 10 doses (0.4 mg) ondansetron (PF) (ZOFRAN) injection 4 mg 4 mg, intravenous, Every 6 hours PRN, vomiting, nausea, Starting on Thu07/08/24 at 1437, -ONLY give IV if patient is unable to take orally. -If inadequate response within 30 minutes, proceed to next-line agent or contact provider if no further options ordered. Given 08/04/2024 4:46 AM EST 4 mg Given 07/23/2024 1:12 PM EST 4 mg Given 07/20/2024 12:27 PM EST 4 mg oxyCODONE (ROXICODONE) immediate release tablet 5 mg 5 mg, oral, Every 4 hours PRN, moderate pain or when therapies for mild pain were not effective, Starting on Thu07/08/24 at 1437 Given 07/22/2024 11:42 PM EST 5 mg Given 07/20/2024 10:26 PM EST 5 mg Given 07/19/2024 12:11 PM EST 5 mg pamidronate (AREDIA) 30 mg in sodium chloride 0.9 % 260 mL infusion 30 mg, intravenous, at 65 mL/hr, Administer over 4 Hours, Once, On Thu07/08/24 at 2100, For 1 dose, Must not be mixed with calcium-containing infusion solutions, such as Ringer's solution, and should be given in a single intravenous solution and line separate from all other drugs. HAZARDOUS Drug Precautions - Low Risk (Category A/NIOSH Group 3) Reproductive Risk Only: - Double pair of ASTM standard D6978 certified chemotherapy gloves - Eye protection (goggles or face shield) required only with a potential for facial contact (i.e. concern for spitting or vomiting of the dose during or after administration) - Staff at reproductive risk (actively trying to conceive, or may be become , and ): Chemotherapy gown New Bag 07/08/2024 10:06 PM EST 30 mg 65 mL/hr pantoprazole (PROTONIX) EC tablet 40 mg 40 mg, oral, Every morning before breakfast, First dose on Thu07/10/24 at 1330, Do not crush, chew, or split. Given 08/06/2024 6:17 AM EST 40 mg Given 08/05/2024 6:51 AM EST 40 mg Given 08/04/2024 6:19 AM EST 40 mg polyethylene glycol (MIRALAX) packet 17 g 17 g, oral, Daily, First dose on Thu07/09/24 at 0900, Bowel Regimen - for prevention of constipation Given 08/04/2024 8:53 AM EST 17 g Given 07/31/2024 8:43 AM EST 17 g Given 07/21/2024 3:55 PM EST 17 g polyvinyl alcohol-povidone (PF) (ARTIFICIAL TEARS) 1.4-0.6 % ophthalmic solution 2 drop 2 drop, Both Eyes, Every 2 hours PRN, dry eyes, Starting on Thu07/08/24 at 1746 Given 08/05/2024 9:24 PM EST 2 drop s Given 08/04/2024 9:01 PM EST 2 drops Given 08/04/2024 11:22 AM EST 2 drops potassium chloride (KLOR-CON M20) CR tablet 20 mEq 20 mEq, oral, Once, On [facility] 07/14/24 at 1830, For 1 dose, Tablet may be swallowed whole (do not crush/chew/suck on) OR broken in half and each half swallowed separately OR dissolved (whole tablet) in ~4 ounces of water (allow ~2 minutes to dissolve, stir well and administer immediately). Given 07/14/2024 6:58 PM EST 20 mEq predniSONE (DELTASONE) tablet 60 mg 60 mg, oral, Daily, First dose on Thu07/24/24 at 0900 Given 08/06/2024 9:30 AM EST 60 mg Given 08/04/2024 8:52 AM EST 60 mg Given 08/02/2024 8:41 AM EST 60 mg riTUXimab-pvvr (RUXIENCE) 700 mg in sodium chloride 420 mL IVPB 700 mg (rounded from 671.25 mg = 375 mg/m2 ? 1.79 m2), intravenous, Once, On [facility] 07/28/24 at 1500, For 1 dose, -The recommended infusion rate of rituximab-abbs for the FIRST dose is 50 mg/hr -Increased by 50 mg/hr every 30 minutes -Until a MAX infusion rate of 400 mg/hr is reached -The recommended infusion rate for SUBSEQUENT doses is 100 mg/hr: -Increased by 100 mg/hr every 30 minutes -Until a MAX infusion rate of 400 mg/hr is reached Infusion rates are adjusted based on patient tolerance and may be decreased in the setting of infusion-related reactions New Bag 07/28/2024 3:24 PM EST 700 mg 33 m L/hr sodium chloride 0.9 % bolus 500 mL 500 mL, intravenous, at 2,000 mL/hr, Administer over 15 Minutes, Once as needed, for hypotensive management (systolic BP below 90 mmHg), Starting on Soco 07/28/24 at 1140, For 1 dose, Run wide open and await physician orders sodium chloride 0.9 % flush 10 mL 10 mL, intravenous, 2 times daily, First dose on Thu07/08/24 at 1445 Given 08/04/2024 9:09 PM EST 10 mL Given 08/04/2024 8:57 AM EST 10 mL Given 08/02/2024 8:42 AM EST 10 mL sodium chloride 0.9 % flush 10 mL 10 mL, intravenous, As needed, line care, Starting on Thu07/08/24 at 1437 sodium chloride 0.9 % flush 10 mL 10 mL, intravenous, 2 times daily, First dose on 07/23/24 at 2100 Given 08/06/2024 9:30 AM EST 10 mL Given 08/05/2024 9:26 PM EST 10 mL Given 08/04/2024 9:09 PM EST 10 mL sodium chloride 0.9 % flush 10 mL 10 mL, intravenous, As needed, line care, Starting on Thu07/23/24 at 1617 Given 07/25/2024 9:37 PM EST 10 mL sodium chloride 0.9 % infusion 100 mL/hr, intravenous, Continuous, Starting on Thu07/08/24 at 1317 New Bag 07/10/2024 3:14 AM EST 100 mL/hr 100 mL/hr New Bag 07/09/2024 5:38 PM EST 100 mL/hr 100 mL/hr New Bag 07/09/2024 6:05 AM EST 100 mL/hr 100 mL/hr sodium chloride 0.9 % infusion 42 mL/hr, intravenous, As needed, pre-, and post- transfusion as needed for line flush purposes, in conjunction with blood product transfusion only, Starting on Thu07/08/24 at 1316, -Use only the amount required from a 250 mL bag of NS to adequately flush -A new NS bag is required with each new unit of blood administered sodium chloride 0.9 % infusion 42 mL/hr, intravenous, As needed, pre-, and post- transfusion as needed for line flush purposes, in conjunction with blood product transfusion only, Starting on Thu07/13/24 at 1043, -Use only the amount required from a 250 mL bag of NS to adequately flush -A new NS bag is required with each new unit of blood administered sodium chloride 0.9 % infusion 42 mL/hr, intravenous, As needed, pre-, and post- transfusion as needed for line flush purposes, in conjunction with blood product transfusion only, Starting on Thu07/23/24 at 1113, -Use only the amount required from a 250 mL bag of NS to adequately flush -A new NS bag is required with each new unit of blood administered sodium chloride 0.9 % infusion 42 mL/hr, intravenous, As needed, pre-, and post- transfusion as needed for line flush purposes, in conjunction with blood product transfusion only, Starting on Thu08/02/24 at 1408, -Use only the amount required from a 250 mL bag of NS to adequately flush -A new NS bag is required with each new unit of blood administered sulfamethoxazole-trimethoprim (BACTRIM DS,SEPTRA DS) 800-160 mg per tablet 160 mg 160 mg, oral, 3 times weekly (Once per day on Thursday), First dose on Thu07/22/24 at 0900, For 20 days, Indication: Prophylaxis-Medical Given 08/03/2024 12:59 PM EST 160 mg Given 08/01/2024 8:41 AM EST 160 mg Given 07/29/2024 12:01 PM EST 160 mg thiamine (VITAMIN B-1) tablet 100 mg 100 mg, oral, Daily, First dose on Thu07/18/24 at 1700 Given 08/06/2024 9:30 AM EST 100 mg Given 08/04/2024 8:53 AM EST 100 mg Given 08/02/2024 8:41 AM EST 100 mg documented in this encounter Discontinued Medications Medication Sig Discontinue Reason Start Date End Da te lisinopriL (PRINIVIL,ZESTRIL) 10 mg tablet Take 1 tablet (10 mg total) by mouth daily Stop Taking at Discharge 08/06/2024 documented as of this encounter Active and Recently Administered Medications Times are shown in EST. Scheduled Medication Order 08/04/2024 08/05/2024 08/06/2024 apixaban (ELIQUIS) tablet 10 mg 10 mg, oral, 2 times daily, First dose on Thu07/30/24 at 1145, For 7 days, Indication: VTE/PE Treatment, On hold since Thu08/03/2024 at 0821 until manually unheld 0900 (Hold - Provider: Jolene Cardona RN - Reason: See Provider Order)2100 (Dose Auto Held - Provider: Steve Cruz MD) 0900 (Not Given - Provider: Jacquelin Davidson RN - Reason: See Provider Order)2100 (Not Given - Provider: Katina Machuca RN - Reason: Other - Comment: held by provider) apixaban (ELIQUIS) tablet 5 mg 5 mg, oral, 2 times daily, First dose (after last modification) on 08/06/24 at 0945, Indication: VTE/PE Treatment 0930 (Given - Provider: Jacquelin Davidson, ILIR) atorvastatin (LIPITOR) tablet 10 mg 10 mg, oral, Nightly, First dose on 07/09/24 at 2100 2053 (Given - Provider: María Hawk RN) 1145 (AUG Hold - Provider: Automatic Transfer Provider - Reason: Patient not available)1424 (AUG Unhold - Provider: Automatic Transfer Provider)212 (Given - Provider: Katina Machuca, ILIR) B complex-vitamin C-folic acid (NEPHRO-SAVITA) tablet 1 tablet 1 tablet (1 each), oral, Daily, First dose on 07/18/24 at 1700 0853 (Given - Provider: Jolene Cardona, ILIR) 0828 (Not Given - Provider: Jacquelin Davidson RN - Reason: Patient not available)1145 (AUG Hold - Provider: Automatic Transfer Provider - Reason: Patient not available)1424 (AUG Unhold - Provider: Automatic Transfer Provider) 0930 (Given - Provider: Jacquelin Davidson, ILIR) docusate sodium (COLACE) capsule 100 mg 100 mg, oral, 2 times daily, First dose on Soco 07/21/24 at 2100 0853 (Given - Provider: Jolene Cardona, ILIR)2101 (Given - Provider: María Hawk RN) 0828 (Not Given - Provider: Jacquelin Davidson RN - Reason: Patient not available)1145 (AUG Hold - Provider: Automatic Transfer Provider - Reason: Patient not available)1424 (AUG Unhold - Provider: Automatic Transfer Provider)2126 (Not Given - Provider: Katina Machuca RN - Reason: Patient/Resident/Agen t refused - education provided ) 0929 (Not Given - Provider: Jacquelin Davidson RN - Reason: Other) insulin glargine (LANTUS) injection 10 Units 10 Units, subcutaneous, Nightly, First dose (after last modification) on 07/17/24 at 2230, Notify provider: -If patient is currently or will become NPO -If TPN was or will be interrupted or discontinued -For approval to hold long acting insulin 2101 (Given - Provider: María Hawk RN) 1145 (AUG Hold - Provider: Automatic Transfer Provider - Reason: Patient not available)1424 (AUG Unhold - Provider: Automatic Transfer Provider)212 (Given - Provider: Katina Machuca, RN) insulin lispro injection 1-6 Units 1-6 Units, subcutaneous, 4 times daily before meals and nightly, First dose on Thu07/08/24 at 1650, Indication: Total Daily Dose (TDD) LESS than 40 units Correction Scale: Low Dose Administer with meal and/or mealtime dose of insulin to correct high blood glucose If mealtime insulin dose not given (e.g. patient NPO or not eating), still administer correction factor for high blood glucose 0826 (Not Given - Provider: Jolene Cardona RN - Reason: Order parameters not met - Comment: BG 116)1124 (Not Given - Provider: Jolene aCrdona RN - Reason: Order parameters not met - Comment: BG 130)1745 (Given - Provider: Jolene Cardona RN)210 (Given - Provider: María Hawk RN) 0720 (Not Given - Provider: Jacquelin Davidson RN - Reason: Patient not available)1056 (Not Given - Provider: Jacquelin Davidson RN - Reason: Patient not available)1145 (AUG Hold - Provider: Automatic Transfer Provider - Reason: Patient not available)1424 ([facility] Unhold - Provider: Automatic Transfer Provider)1647 (Given - Provider: Jacquelin Davidson RN)212 (Given - Provider: Katina Machuca RN) 0732 (Not Given - Provider: Jacquelin Davidson RN - Reason: Order parameters not met)1128 (Given - Provider: Jacquelin Davidson, ILIR) insulin lispro injection 3 Units 3 Units, subcutaneous, 3 times daily before meals, First dose (after last modification) on Thu07/18/24 at 0730, Mealtime Insulin - Administer with meal -Do NOT give if patient NPO or expected to eat LESS than 50% of meal -If pre-meal glucose LESS than OR equal to 70 mg/dL- treat hypoglycemia and notify provider 0852 (Given - Provider: Jolene Cardona RN)1130 (Given - Provider: Jolene Cardona RN)1746 (Given - Provider: Jolene Cardona RN) 0720 (Not Given - Provider: Jacquelin Davidson RN - Reason: Patient not available)1056 (Not Given - Provider: Jacquelin Davidson RN - Reason: Patient not available)1145 (MAR Hold - Provider: Automatic Transfer Provider - Reason: Patient not available)1424 ([facility] Unhold - Provider: Automatic Transfer Provider)1646 (Given - Provider: Jacquelin Davidson RN) 0732 (Not Given - Provider: Jacquelin Davidson RN - Reason: Order parameters not met)1128 (Given - Provider: Jacquelin Davidson RN) pantoprazole (PROTONIX) EC tablet 40 mg 40 mg, oral, Every morning before breakfast, First dose on 07/10/24 at 1330, Do not crush, chew, or split. 0619 (Given - Provider: Lindsay Lagos RN) 0651 (Given - Provider: Mraía Hawk RN)1145 (MAR Hold - Provider: Automatic Transfer Provider - Reason: Patient not available)1424 ([facility] Unhold - Provider: Automatic Transfer Provider) 0617 (Given - Provider: Katina Machuca RN) polyethylene glycol (MIRALAX) packet 17 g 17 g, oral, Daily, First dose on 07/09/24 at 0900, Bowel Regimen - for prevention of constipation 0853 (Given - Provider: Jolene Cardona, ILIR) 0828 (Not Given - Provider: Jacquelin Davidson RN - Reason: Patient not available)1145 (MAR Hold - Provider: Automatic Transfer Provider - Reason: Patient not available)1424 ([facility] Unhold - Provider: Automatic Transfer Provider) 0929 (Not Given - Provider: Jacquelin Davidson RN - Reason: Other) predniSONE (DELTASONE) tablet 60 mg 60 mg, oral, Daily, First dose on Sun /26/25 at 0900 0852 (Given - Provider: Jolene Cardona, ILIR) 0828 (Not Given - Provider: Jacquelin Davidson RN - Reason: Patient not available)1145 ([facility] Hold - Provider: Automatic Transfer Provider - Reason: Patient not available)1424 ([facility] Unhold - Provider: Automatic Transfer Provider) 0930 (Given - Provider: Jacquelin Davidson RN) sodium chloride 0.9 % flush 10 mL(Linked Group 1) 10 mL, intravenous, 2 times daily, First dose on Thu07/08/24 at 1445 0857 (Given - Provider: Jolene Cardona, ILIR)2109 (Given - Provider: María Hawk, ILIR) 0829 (Not Given - Provider: Jacquelin Davidson RN - Reason: Patient not available)1145 ([facility] Hold - Provider: Automatic Transfer Provider - Reason: Patient not available)1424 ([facility] Unhold - Provider: Automatic Transfer Provider)2206 (Not Given - Provider: Katina Machuca RN - Reason: Other - Comment: already documented) 0930 (Not Given - Provider: Jacquelin Davidson RN - Reason: Other) sodium chloride 0.9 % flush 10 mL(Linked Group 2) 10 mL, intravenous, 2 times daily, First dose on Thu07/23/24 at 2100 0857 (Given - Provider: Jolene Cardona, ILIR)2109 (Given - Provider: María Hawk, ILIR) 0829 (Not Given - Provider: Jacquelin Davidson RN - Reason: Patient not available)1145 ([facility] Hold - Provider: Automatic Transfer Provider - Reason: Patient not available)1424 ([facility] Unhold - Provider: Automatic Transfer Provider)2126 (Given - Provider: Katina Machuca RN) 0930 (Given - Provider: Jacquelin Davidson RN) sulfamethoxazole-trimet hoprim (BACTRIM DS,SEPTRA DS) 800-160 mg per tablet 160 mg 160 mg, oral, 3 times weekly (Once per day on Thursday), First dose on Thu07/22/24 at 0900, For 20 days, Indication: Prophylaxis-Medical 0829 (Not Given - Provider: Jacquelin Davidson RN - Reason: Patient not available)1145 ([facility] Hold - Provider: Automatic Transfer Provider - Reason: Patient not available)1424 ([facility] Unhold - Provider: Automatic Transfer Provider) thiamine (VITAMIN B-1) tablet 100 mg 100 mg, oral, Daily, First dose on Thu07/18/24 at 1700 0853 (Given - Provider: Jolene Cardona, RN) 0829 (Not Given - Provider: Jacquelin Davidson RN - Reason: Patient not available)1145 ([facility] Hold - Provider: Automatic Transfer Provider - Reason: Patient not available)1424 ([facility] Unhold - Provider: Automatic Transfer Provider) 0930 (Given - Provider: Jacquelin Davidson, ILIR) PRN Medication Order 08/04/2024 08/05/2024 08/06/2024 acetaminophen (TYLENOL) tablet 650 mg 650 mg, oral, Every 6 hours PRN, mild pain, fever - temperature GREATER than 38 C (100.4 F), Starting on Thu07/08/24 at 1437 2134 (Given - Provider: María Hawk RN) 1145 ([facility] Hold - Provider: Automatic Transfer Provider - Reason: Patient not available)1424 ([facility] Unhold - Provider: Automatic Transfer Provider)212 (Given - Provider: Katina Machuca, ILIR) acetaminophen (TYLENOL) tablet 650 mg 650 mg, oral, Once as needed, mild pain, headaches, fever - temperature GREATER than 38 C (100.4 F), Starting on Soco 07/28/24 at 1140, For 1 dose 1145 ([facility] Hold - Provider: Automatic Transfer Provider - Reason: Patient not available)1424 ([facility] Unhold - Provider: Automatic Transfer Provider)214 (Not Given - Provider: Katina Machuca RN - Reason: Other - Comment: charted on q6 prn) albuterol 2.5 mg /3 mL (0.083 %) nebulizer solution 2.5 mg 2.5 mg, nebulization, Every 10 min PRN, shortness of breath, Starting on Soco 07/28/24 at 1140, For 2 doses, -May repeat once if symptoms unresolved -Administer with 8L of oxygen 1145 ([facility] Hold - Provider: Automatic Transfer Provider - Reason: Patient not available)1424 ([facility] Unhold - Provider: Automatic Transfer Provider) benzonatate (TESSALON) capsule 100 mg 100 mg, oral, 3 times daily PRN, cough, Starting on Thu07/15/24 at 0957, Cough Do not crush or chew., Indications: cough 1145 ([facility] Hold - Provider: Automatic Transfer Provider - Reason: Patient not available)1424 ([facility] Unhold - Provider: Automatic Transfer Provider) dextrose (D50W) 50% injection 12.5 g 12.5 g, intravenous, Every 15 min PRN, low blood sugar, moderate hypoglycemia *Patient is Unconscious, NPO, unable to swallow: BG 54 - 69 mg/dl*, Starting on Thu07/08/24 at 1649 1145 ([facility] Hold - Provider: Automatic Transfer Provider - Reason: Patient not available)1424 ([facility] Unhold - Provider: Automatic Transfer Provider) dextrose (D50W) 50% injection 25 g 25 g, intravenous, Every 15 min PRN, low blood sugar, severe hypoglycemia *Patient is Unconscious, NPO, unable to swallow: BG LESS than 54 mg/dL*, Starting on Thu07/08/24 at 1649 1145 ([facility] Hold - Provider: Automatic Transfer Provider - Reason: Patient not available)1424 ([facility] Unhold - Provider: Automatic Transfer Provider) dextrose 15 gram/60 mL oral solution 15 g 15 g, oral, Every 15 min PRN, low blood sugar, hypoglycemia *Patient conscious AND able to drink and swallow safely*, Starting on Thu07/08/24 at 1649 1145 ([facility] Hold - Provider: Automatic Transfer Provider - Reason: Patient not available)1424 ([facility] Unhold - Provider: Automatic Transfer Provider) dextrose 15 gram/60 mL oral solution 30 g 30 g, oral, Every 15 min PRN, low blood sugar, hypoglycemia *Patient conscious AND able to drink and swallow safely*, Starting on Thu07/08/24 at 1649 1145 ([facility] Hold - Provider: Automatic Transfer Provider - Reason: Patient not available)1424 ([facility] Unhold - Provider: Automatic Transfer Provider) diphenhydrAMINE (BENADRYL) injection 25 mg 25 mg, intravenous, Once as needed, for Moderate hypersensitivity / infusion reaction (grade 2) symptoms, Starting on Thu07/28/24 at 1140, For 1 dose, Use as needed for Moderate hypersensitivity / infusion reaction (grade 2) symptoms include: -Flushing -Dizziness -Back pain -Rigors -Localized hives/rash -Pruritis -Nausea -Vomiting -Abdominal cramping -Temperature GREATER than 100.5 F -Uneasiness -Agitation -Feeling of impending doom Use with caution in patients over 60 years of age, or with asthma 1145 ([facility] Hold - Provider: Automatic Transfer Provider - Reason: Patient not available)1424 ([facility] Unhold - Provider: Automatic Transfer Provider) diphenhydrAMINE (BENADRYL) injection 50 mg 50 mg, intravenous, Once as needed, for Severe hypersensitivity / infusion reaction (grade 3) symptoms, Starting on Soco 07/28/24 at 1140, For 1 dose, Use as needed for Severe hypersensitivity / infusion reaction (grade 3) symptoms include: -Hypoxemia -Dyspsea -Bradycardia OR Tachycardia -Chest pain/pressure -Cognitive changes -Systolic BP LESS than 90 mmHg -Generalized rash Only administer If not given within past 2 hours If patient has severe hypotension, give after hypotensive episode is resolved Use with caution in patients over 60 years of age, or with asthma 1145 ([facility] Hold - Provider: Automatic Transfer Provider - Reason: Patient not available)1424 ([facility] Unhold - Provider: Automatic Transfer Provider) EPINEPHrine (ADRENALIN) IM Kit - adult 0.3 mg 0.3 mg, intramuscular, Every 15 min PRN, anaphylaxis, For systolic BP LESS than 90 mmHg, Starting on Soco 07/28/24 at 1140, For 3 doses, May repeat every 15 minutes as needed for a maximum of 3 doses 1145 ([facility] Hold - Provider: Automatic Transfer Provider - Reason: Patient not available)1424 ([facility] Unhold - Provider: Automatic Transfer Provider) famotidine (PF) (PEPCID) injection 20 mg 20 mg, intravenous, Administer over 2 Minutes, Once as needed, heartburn, for Severe hypersensitivity / infusion reaction (grade 3) symptoms, Starting on Soco 07/28/24 at 1140, For 1 dose, Use as needed for Severe hypersensitivity / infusion reaction (grade 3) symptoms include: -Hypoxemia -Dyspsea -Bradycardia OR Tachycardia -Chest pain/pressure -Cognitive changes -Systolic BP LESS than 90 mmHg -Generalized rash -Dilute with 10 mL of 0.9% normal saline -IV push over at least 2 minutes 1145 ([facility] Hold - Provider: Automatic Transfer Provider - Reason: Patient not available)1424 ([facility] Unhold - Provider: Automatic Transfer Provider) Glucagon HCl (rDNA) injection 1 mg 1 mg, intramuscular, Once as needed, low blood sugar, severe hypoglycemia, Starting on 07/08/24 at 1649, For 1 dose 1145 ([facility] Hold - Provider: Automatic Transfer Provider - Reason: Patient not available)1424 ([facility] Unhold - Provider: Automatic Transfer Provider) hydrALAZINE (APRESOLINE) injection 10 mg 10 mg, intravenous, Every 6 hours PRN, systolic BP greater than:, SBP>160, Starting on 07/09/24 at 1504 1145 ([facility] Hold - Provider: Automatic Transfer Provider - Reason: Patient not available)1424 ([facility] Unhold - Provider: Automatic Transfer Provider) hydrocortisone sod succ (PF) (SOLU-CORTEF) injection 100 mg 100 mg, intravenous, Once as needed, for Severe hypersensitivity / infusion reaction (grade 3) symptoms, Starting on Soco 07/28/24 at 1140, For 1 dose, Use as needed for Severe hypersensitivity / infusion reaction (grade 3) symptoms include: -Hypoxemia -Dyspsea -Bradycardia OR Tachycardia -Chest pain/pressure -Cognitive changes -Systolic BP LESS than 90 mmHg -Generalized rash Administer over 2 minutes 1145 ([facility] Hold - Provider: Automatic Transfer Provider - Reason: Patient not available)1424 ([facility] Unhold - Provider: Automatic Transfer Provider) HYDROmorphone (PF) injection 0.5 mg 0.5 mg, intravenous, Every 3 hours PRN, severe pain or when therapies for moderate pain were not effective, Starting on Thu07/08/24 at 1437 1145 ([facility] Hold - Provider: Automatic Transfer Provider - Reason: Patient not available)1424 ([facility] Unhold - Provider: Automatic Transfer Provider) naloxone (NARCAN) injection 0.04 mg 0.04 mg, intravenous, As needed, opioid reversal, IV Push every 1 min for 10 doses, Starting on Thu07/08/24 at 1437, For 10 doses, To Dilute: -Use 0.4 mg/mL vial , withdraw 1 mL and add 9 mL NS -FOLLOWING DILUTION, dose of 0.04 mg = 1 mL For PARTIAL Opioid Reversal: -For respiratory rate LESS than 10 or [place] Opioid-induced Sedation Scale (POSS) equal to 4 -May be repeated at 1 minute intervals to restore adequate respirations -Administer up to 10 doses (0.4 mg) 1145 ([facility] Hold - Provider: Automatic Transfer Provider - Reason: Patient not available)1424 ([facility] Unhold - Provider: Automatic Transfer Provider) ondansetron (PF) (ZOFRAN) injection 4 mg 4 mg, intravenous, Every 6 hours PRN, vomiting, nausea, Starting on Thu07/08/24 at 1437, -ONLY give IV if patient is unable to take orally. -If inadequate response within 30 minutes, proceed to next-line agent or contact provider if no further options ordered. 0446 (Given - Provider: María Hawk RN) 1145 ([facility] Hold - Provider: Automatic Transfer Provider - Reason: Patient not available)1424 ([facility] Unhold - Provider: Automatic Transfer Provider) oxyCODONE (ROXICODONE) immediate release tablet 5 mg 5 mg, oral, Every 4 hours PRN, moderate pain or when therapies for mild pain were not effective, Starting on Thu07/08/24 at 1437 1145 ([facility] Hold - Provider: Automatic Transfer Provider - Reason: Patient not available)1424 ([facility] Unhold - Provider: Automatic Transfer Provider) polyvinyl alcohol-povidone (PF) (ARTIFICIAL TEARS) 1.4-0.6 % ophthalmic solution 2 drop 2 drop, Both Eyes, Every 2 hours PRN, dry eyes, Starting on Thu07/08/24 at 1746 1122 (Given - Provider: Jolene Cardona, ILIR)2101 (Given - Provider: María Hawk RN) 1145 ([facility] Hold - Provider: Automatic Transfer Provider - Reason: Patient not available)1424 ([facility] Unhold - Provider: Automatic Transfer Provider)2124 (Given - Provider: Katina Machuca RN) sodium chloride 0.9 % bolus 500 mL 500 mL, intravenous, at 2,000 mL/hr, Administer over 15 Minutes, Once as needed, for hypotensive management (systolic BP below 90 mmHg), Starting on Soco 07/28/24 at 1140, For 1 dose, Run wide open and await physician orders 1145 ([facility] Hold - Provider: Automatic Transfer Provider - Reason: Patient not available)1424 ([facility] Unhold - Provider: Automatic Transfer Provider) sodium chloride 0.9 % flush 10 mL(Linked Group 1) 10 mL, intravenous, As needed, line care, Starting on Thu07/08/24 at 1437 1145 ([facility] Hold - Provider: Automatic Transfer Provider - Reason: Patient not available)1424 ([facility] Unhold - Provider: Automatic Transfer Provider) sodium chloride 0.9 % flush 10 mL(Linked Group 2) 10 mL, intravenous, As needed, line care, Starting on 07/23/24 at 1617 1145 ([facility] Hold - Provider: Automatic Transfer Provider - Reason: Patient not available)1424 ([facility] Unhold - Provider: Automatic Transfer Provider) sodium chloride 0.9 % infusion 42 mL/hr, intravenous, As needed, pre-, and post- transfusion as needed for line flush purposes, in conjunction with blood product transfusion only, Starting on Thu07/08/24 at 1316, -Use only the amount required from a 250 mL bag of NS to adequately flush -A new NS bag is required with each new unit of blood administered 1145 ([facility] Hold - Provider: Automatic Transfer Provider - Reason: Patient not available)1424 ([facility] Unhold - Provider: Automatic Transfer Provider) sodium chloride 0.9 % infusion 42 mL/hr, intravenous, As needed, pre-, and post- transfusion as needed for line flush purposes, in conjunction with blood product transfusion only, Starting on Thu07/13/24 at 1043, -Use only the amount required from a 250 mL bag of NS to adequately flush -A new NS bag is required with each new unit of blood administered 1145 ([facility] Hold - Provider: Automatic Transfer Provider - Reason: Patient not available)1424 ([facility] Unhold - Provider: Automatic Transfer Provider) sodium chloride 0.9 % infusion 42 mL/hr, intravenous, As needed, pre-, and post- transfusion as needed for line flush purposes, in conjunction with blood product transfusion only, Starting on 07/23/24 at 1113, -Use only the amount required from a 250 mL bag of NS to adequately flush -A new NS bag is required with each new unit of blood administered 1145 ([facility] Hold - Provider: Automatic Transfer Provider - Reason: Patient not available)1424 ([facility] Unhold - Provider: Automatic Transfer Provider) sodium chloride 0.9 % infusion 42 mL/hr, intravenous, As needed, pre-, and post- transfusion as needed for line flush purposes, in conjunction with blood product transfusion only, Starting on Thu08/02/24 at 1408, -Use only the amount required from a 250 mL bag of NS to adequately flush -A new NS bag is required with each new unit of blood administered 1145 ([facility] Hold - Provider: Automatic Transfer Provider - Reason: Patient not available)1424 ([facility] Unhold - Provider: Automatic Transfer Provider) Linked Groups Order Group 1: Insert peripheral IV (CANCELED) STAT, Once, On Thu07/08/24 at 1438, For 1 occurrence And Maintain IV access (CANCELED) Until discontinued, Starting on Thu07/08/24 at 1438, Until Specified And Saline lock IV (CANCELED) Routine, Once, On Thu07/08/24 at 1438, For 1 occurrence And sodium chloride 0.9 % flush 10 mLJump to med 10 mL, intravenous, 2 times daily, First dose on Thu07/08/24 at 1445 And sodium chloride 0.9 % flush 10 mLJump to med 10 mL, intravenous, As needed, line care, Starting on Thu07/08/24 at 1437 Group 2: Insert Midline (COMPLETED) Routine, Once, On 07/23/24 at 1618, For 1 occurrence And Maintain IV access (CANCELED) Until discontinued, Starting on 07/23/24 at 1618, Until Specified And Saline lock IV (CANCELED) Routine, Once, On 07/23/24 at 1618, For 1 occurrence And sodium chloride 0.9 % flush 10 mLJump to med 10 mL, intravenous, 2 times daily, First dose on 07/23/24 at 2100 And sodium chloride 0.9 % flush 10 mLJump to med 10 mL, intravenous, As needed, line care, Starting on 07/23/24 at 1617 documented in this encounter Orders Medications Ordered That Stefano ht Not Have Been Administered Count Last Ordered Date First Ordered Date diphenhydrAMINE (BENADRYL) injection 25 mg 3 08/05/2024 07/28/2024 fentaNYL (PF) (SUBLIMAZE) injection 50 mcg 2 08/05/2024 haloperidol lactate (HALDOL) injection 1 mg 2 08/05/2024 HYDROmorphone (PF) injection 0.5 mg 3 08/0507/08/2024 oxyCODONE (ROXICODONE) immed iate release tablet 5 mg 2 08/05/2024 sodium chloride 0.9 % bolus 100 mL 3 202407/16/2024 sodium chloride 0.9 % infusion 4 08/02/2024 07/08/2024 apixaban (ELIQUIS) tablet 5 mg 1 07/30/2024 acetaminophen (TYLENOL) tablet 650 mg 1 albuterol 2.5 mg /3 mL (0.08 3 %) nebulizer solution 2.5 mg 1 07/28/2024 diphenhydrAMINE (BENADRYL) injection 50 mg 1 07/28/2024 EPINEPHrine (ADRENALIN) IM K it - adult 0.3 mg 1 07/28/2024 famotidine (PF) (PEPCID) injection 20 mg 1 07/28/2024 hydrocortisone sod succ (PF) (SOLU-CORTEF) injection 100 mg 1 07/28/2024 sodium chloride 0.9 % bolus 500 mL 1 2024 heparin (UFH) bolus from inf usion 3,296 Units 1 07/21/2024 heparin (UFH) bolus from inf usion 6,592 Units 1 07/21/2024 apixaban (ELIQUIS) tablet 10 mg 1 heparin (UFH) bolus from inf usion 3,268 Units 1 07/20/2024 heparin (UFH) bolus from inf usion 6,536 Units 1 07/20/2024 insulin lispro injection 3 Units 1 07/17/19 25 heparin (UFH) bolus from inf usion 3,224 Units 2 07/16/2024 heparin infusion 100 units/mL in D5W 06/29 albumin human 25 % infusion 12.5 g 1 2024 hydrALAZINE (APRESOLINE) injection 10 mg 1 07/09/2024 dextrose (D50W) 50% injection 12.5 g 06/29 dextrose (D50W) 50% injection 25 g 2024 dextrose 15 gram/60 mL oral solution 15 g 07/08/2024 dextrose 15 gram/60 mL oral solution 30 g 07/08/2024 ferrous sulfate 300 mg (60 m g elemental iron)/5 mL liquid 300 mg 07/08/2024 Glucagon HCl (rDNA) injection 1 mg 1 01/10/ 2025 naloxone (NARCAN) injection 0.04 mg 1 07/08 sodium chloride 0.9 % flush 10 mL 1 025 Lab Orders Without Results Count Last Ordered D ate First Ordered Date POCT GLUCOSE, BLOOD 113 08/06/2024 07/08/19 25 EKG Orders Without Results Count Last Ordered D ate First Ordered Date ECG 12-LEAD 1 07/08/2024 Diet Count Last Ordered Date First Orde red Date ADULT DISCHARGE DIET 1 08/05/2024 Nursing Count Last Ordered Date First Orde red Date BLADDER SCAN 1 07/09/2024 Consult Count Last Ordered Date First Orde red Date WOUND CARE INPATIENT FOLLOW-UP 1 07/14/2024 IP CONSULT TO SOCIAL WORK 1 07/09/2024 IP CONSULT TO NUTRITION SERVICES 1 07/08/19 25 Dialysis Count Last Ordered Date First Orde red Date HEMODIALYSIS INPATIENT 11 08/04/202407/15 Admission Count Last Ordered Date First Orde red Date ADMIT TO INPATIENT 1 07/08/2024 Transfer Count Last Ordered Date First Orde red Date ED TO FLOOR BED REQUEST 1 07/08/2024 Discharge Count Last Ordered Date First Orde red Date DISCHARGE PATIENT 1 08/05/2024 documented in this encounter Additional Health Concerns Infection Onset Date Last Indicated Resolved Time Respiratory Rule-Out 07/08/2024 07/08/2024 025 4:18 PM EST COVID-19 Rule-Out 07/08/2024 07/08/2024 07/08/2024 4:18 PM EST Tuberculosis Rule-Out 08/05/2024 08/05/2024 documented as of this encounter Care Teams Thread Inspector Relationship Specialty Start Date End Date Eloisa Vázquez DO [address] [place], [place] [address] [address] PCP - General 04/12/24 documented as of this encounter
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
--- OUTSIDE RECORDS SUMMARY | 2024-08-08 05:45 | XMS_ITS | Encounter Summary ---
Author Organization [facility] Address [address] [place] [address] Care Team Providers Care Hot Shot Name Role Phone Eloisa Vázquez DO Primary Care Provider [phone] Reason for Visit * Reason Onset Date Comments Pre-op Visit 07/05/2024 Encounter Details Date Type Department Care Team (Late st Contact Info) Description 07/05/2024 Telephone [facility] - [facility] 154 [address] [facility] [address] [place] [address] Primo Navarro MD 300 [facility] [address] [place], [place] [phone] Pre-op Visit Social History Tobacco Use Types Packs/Day Years [...] AM EST documented as of this encounter Progress Notes * Christian Tello MA - 07/08/2024 8:18 AM EST Attempted to reach [place] at # listed below. Internally I was transferred to her line and there was no answer with no option to leave a VM. As it states it Dr. Navarro's note Had some coronary calcifications on CT at [place] though without anginal symptoms don't feel strongly about need to start aspirin at this time as I doubt it would significantly alter her erin-op TN/CA risk. Currently Ríos Risk is ~1-2% but I doubt that delaying the procedure for stress testing and stenting without any symptoms at this time would be of any particular benefit to the patient. * Ariel Jin - 07/05/2024 11:05 AM EST Cheyenne from Dr. Montez's office states the office visit from 06/17/24 vizcaino snot clear patient for surgery. She would like an addendum to clear patient for surgery. The surgery is on 07/14/23. documented in this encounter Plan of Treatment Upcoming Encounters Date Type Department Care Team (Late st Contact Info) Description 08/10/2024 10:00 AM EST Office Visit [facility] Hematology Oncology [address] [place] [phone] Jaime Grimaldo MD [address] [place] [address] 08/15/2024 1:30 PM EST Office Visit Thoracic Surgery - [place] [address] [phone] Cecily Montez MD [address] [place] [address] 08/23/2024 3:00 PM EST Office Visit Gastroenterology - [address] [place] [address] [facility] [address] [place] [address] Josiane Smith, FIG WASHER 299 [facility] [address] [place] [address] 08/24/2024 11:15 AM EST Office Visit Internal Medicine - [address] [phone] Eloisa Vázquez DO [address] [place] [address] 09/05/2024 10:00 AM EDT Office Visit Endocrinology - [place] [address] [place] [address] Kathy Michelle PA [address] [place] [address] 09/06/2024 11:00 AM EDT Ancillary Procedure [facility] - [facility] 101 300 [facility] [address] [place] [address] 01/24/2025 1:30 PM EDT Consult Nephrology - [address] [phone] Chencho Wayne MD 100 [facility] [address] [place] [address] documented as of this encounter Visit Diagnoses Not on filedocumented in this encounter Additional Health Concerns Infection Onset Date Last Indicated Resolved Time Respiratory Rule-Out 07/08/2024 07/08/2024 025 4:18 PM EST COVID-19 Rule-Out 07/08/2024 07/08/2024 07/08/2024 4:18 PM EST documented as of this encounter Care Teams Hot Shot Relationship Specialty Start Date End Date Eloisa Vázquez DO [facility] [address] PCP - General 04/12/24 documented as of this encounter
--- OUTSIDE RECORDS SUMMARY | 2024-08-08 05:45 | XMS_ITS | Clinical Summary ---
Author Organization [facility] Address [address] [place] [address] Care Team Providers Care Through Operator Name Role Phone Eloisa Vázquez DO Primary Care Provider Allergies No known active allergies Medications CALCIUM CARBONATE ORAL Calcium 600mg Take 1 tablet (600 mg total) by mouth daily Active cetirizine (ZyrTEC) 10 mg chewable tablet Take 1 tablet (10 mg total) by mouth daily., Active CRANBERRY ORAL Take by mouth A ctive ferrous sulfate 325 mg (65 mg iron) EC tablet Do not crush, chew, or split. Take 1 tablet (325 mg total) by mouth every morning with breakfast Active simvastatin (ZOCOR) 20 mg tablet Take 1 tablet (20 mg total) by mouth every night at bedtime Active cholecalciferol (VITAMIN D-3) 50 mcg (2,000 unit) capsule Take 1 capsule (2,000 Units total) by mouth 1 (one) time each day. Active glipiZIDE (GLUCOTROL XL) 5 mg 24 hr tablet TAKE 2 TABLETS BY MOUTH IN THE MORNING AND TAKE 1 TABLET BY MOUTH IN THE AFTERNOON (WITH MEALS) 270 tablet 4 Active apixaban (ELIQUIS) 5 mg tablet Take 2 tablets (10 mg total) by mouth 2 (two) times a day for 3 days, THEN 1 tablet (5 mg total) 2 (two) times a day. 5 09/09/19 25 Active predniSONE (DELTASONE) 20 mg tablet Take 3 tablets (60 mg total) by mouth 1 (one) time each day. 5 09/06/19 25 Active thiamine (VITAMIN B-1) 100 mg tablet Take 1 tablet (100 mg total) by mouth 1 (one) time each day. 5 09/06/19 25 Active sulfamethoxazol e-trimethoprim (BACTRIM DS,SEPTRA DS) 800-160 mg per tablet Take 1 tablet by mouth 3 (three) times a week for 16 doses. 5 09/14/19 25 Active polyethylene glycol (MIRALAX) 17 gram packet Take 17 g by mouth 1 (one) time each day if needed for constipation. 5 09/05/19 25 Active pantoprazole (PROTONIX) 40 mg EC tablet Take 1 tablet (40 mg total) by mouth 1 (one) time each day before breakfast. Do not crush, chew, or split. 5 09/06/19 25 Active B complex-vitamin C-folic acid (NEPHRO-SAVITA) 0.8 mg tablet Take 1 tablet by mouth 1 (one) time each day. 5 09/06/19 25 Active lisinopriL (PRINIVIL,ZESTR IL) 10 mg tablet Take 1 tablet (10 mg total) by mouth daily 08/06/19 25 Discontinu ed(Stop Taking at Discharge) Active Problems Patient Care Coordination No te Formatting of this note migh t be different from the original. Barriers: Renal Bx 07/22 w/ path pending, new HD, trend labs, H/H, heparin drip- LLE DVT, repeat Pt eval, lung mass biopsy 07/27 Plan: [facility]st choice - [facility]t onsite HD. [facility] accepting w family to provide HD transportation support. Problem Noted Date Diagnosed Date Pulmonary nodule 07/29/2024 Lung mass 06/13/2024 Assessment & Plan (06/13/2024 1:45 PM EST): 79-year-old woman non-smoker never smoker presented initially with anemia and was found to have pulmonary nodules with the most concerning of which in the right upper lobe. This is PET avid however biopsy was nondiagnostic with CT guidance. I had a long discussion with the patient and her daughters about the findings on all of her imaging and pathology as described in the HPI. We also talked about pulmonary nodules in general and how their size, shape, and exchange mechanic time affect her level of suspicion for malignancy. I do have a moderate to high suspicion for the nodule in the right upper lobe in particular. This is due to its PET avidity and overall size. I did discuss the diagnosis, staging, and treatment of lung cancer which they seemed understand. We also talked about options of continued observation versus navigational bronchoscopic biopsy/EBUS versus surgical wedge resection possible anatomic resection for diagnostic and possible therapeutic purposes. After discussing the risks and benefits of each of these options ultimately they decided on attempting another biopsy with navigation technology. Plan then is for navigational bronchoscopy/EBUS with biopsies in the coming weeks. 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 Hypertension 06/01/2024 Hyperlipidemia 06/01/2024 History of cancer of unknown primary site 2023 CKD (chronic kidney disease) stage 4, GFR 15-29 ml/min 06/01/2024 Iron deficiency anemia 06/01/2024 Impaired renal function 06/01/2024 Type 2 diabetes mellitus wit hout complication, without long-term current use of insulin 06/01/2024 Resolved Problems Problem Noted Date Diagnosed Date Resolved Date Acute encephalopathy 07/08/2024 02/03/2 025 Encounters Date Type Department Care Team Description 08/05/2024 11:46 AM EST Anesthesia Event [facility] OR [address] [place] [phone] Monroe Kim MD 08/05/2024 11:30 AM EST - 08/05/2024 1:30 PM EST Surgery [facility] OR [address] [place] [phone] Cecily Montez MD Navigation bronchoscopy/EBUS [57991 (CPT??) +2 more] 08/01/2024 Telephone Internal Medicine - [address] [phone] Eloisa Vázquez, DO Forms/questionnaires 07/08/2024 10:31 AM EST - 08/06/2024 1:09 PM EST Hospital Encounter [facility] Urology [address] [place] [phone] Jj Wolfe MD Flores, Carlos M, MD Japaridze, Anna, MD Santoyo-Pacheco, MD [place], MD Zipagan, James T, MD Seralathan, Manikandan, MD Anemia, unspecified type (Primary Dx); Hyponatremia; Acute on chronic renal insufficiency; Acute encephalopathy; Bilateral leg edema; Pulmonary nodule Discharge Disposition: Senior Care Facility 07/05/[address] [facility] Cardiology [facility] [address] [phone] Primo Navarro MD Pre-op Visit 06/17/2024 9:56 AM EST - 06/17/2024 11:59 PM [facility] Hospital Encounter [facility] CT Scan [address] [place] [phone] Lung mass; Neoplasm Discharge Disposition: Home or Self Care 06/17/2024 8:20 AM EST Office Visit [facility] Cardiology [facility] [address] [phone] Primo Navarro MD Primary hypertension (Primary Dx); Lung mass; Preoperative cardiovascular examination; PANIAGUA (dyspnea on exertion); Leg edema 06/14/2024 Telephone Thoracic Surgery [facility] [address] [phone] Cecily Montez MD Procedure ([facility] , ct scan) 06/13/2024 11:00 AM EST Consult Thoracic Surgery [facility] [address] [phone] Cecily Montez MD Lung mass (Primary Dx); Neoplasm 06/06/2024 8:20 AM EST Office Visit Endocrinology [address] [phone] Kathy Michelle PA Type 2 diabetes mellitus without complication, without long-term current use of insulin (CMS/HCC) (Primary Dx); CKD (chronic kidney disease) stage 4, GFR 15-29 ml/min (CMS/HCC); Primary hypertension 06/01/2024 11:15 AM EST Telemedicine Internal Medicine - [address] [phone] Eloisa Vázquez DO History of cancer of unknown primary site (Primary Dx); Impaired renal function; Type 2 diabetes mellitus without complication, without long-term current use of insulin (CMS/HCC); Hypertension, unspecified type; Hyperlipidemia, unspecified hyperlipidemia type; Iron deficiency anemia, unspecified iron deficiency anemia type 06/01/2024 [facility] - [address] [phone] Eloisa Vázquez DO 05/30/2024 10:15 AM EST Office Visit [facility] Hematology Oncology [address] [place] [phone] Jaime Grimaldo MD Pulmonary nodules (Primary Dx); Normocytic anemia 05/23/2024 4:55 PM EST - 05/23/2024 11:59 PM EST Hospital Encounter [facility] Xray [address] [place] [phone] Discharge Disposition: Home or Self Care 05/23/2024 11:59 AM EST - 05/23/2024 11:59 PM EST Hospital Encounter [facility] Interventional Radiology [address] [place] [phone] Pulmonary nodules; Type 2 diabetes mellitus without complication, without long-term current use of insulin (CMS/HCC); CKD (chronic kidney disease) stage 4, GFR 15-29 ml/min (CMS/HCC) Discharge Disposition: Home or Self Care 05/16/2024 Telephone [facility] Infusion Center [address] [phone] Jaime Grimaldo MD Appointment 05/13/2024 10:00 AM EST Office Visit [facility] Hematology Oncology [address] [place] [phone] Jaime Grimaldo MD Pulmonary nodules (Primary Dx) from Last 3 Months Surgical History Surgery Date Site/Laterality Comments OTHER SURGICAL HISTORY 05/2012 PROCEDURE: ---- OTHER ----; COMMENT: lumbar microdiscectomy CATARACT EXTRACTION 2019 Bilateral PROCEDURE: HISTORICAL CATARACT REMOVAL Medical History Medical History Date Comments Diabetes mellitus, type 2 (CMS/HCC) 02/14/2014 DX:Diabetes mellitus, type 2 (HCC) Hyperlipidemia 02/14/2014 DX:Hyperlipidemi a Hypertension 02/14/2014 DX:Hypertension Osteoporosis 02/14/2014 DX:Osteoporosis Family history of early CAD 03/01/2014 DX:F amily history of early CAD Decreased vision 11/29/2014 DX:Decreased vi daysi Family history of factor V Leiden mutation 2015 DX:Family history of factor V Leiden mutation Microalbuminuria 09/22/2016 DX:Microalbumin uria Lung nodule Blindness HL (hearing loss) Anemia Arthritis Joint pain DVT, lower extremity (CMS/HCC) L EFT LEG History of renal dialysis CURREN T VIA PORT Family History Medical History Relation Name Comments Lymphoma Brother 1 non-Hodgkins Lung cancer Brother 2 No Known Problems Brother 3 Other: Other Brother 4 No Known Problems Daughter Coronary artery disease Father Heart attack Father Hyperlipidemia Mother Hypertension Mother No Known Problems Sister 1 No Known Problems Sister 2 No Known Problems Sister 3 No Known Problems Sister 4 Coronary artery disease Son 1 NEED S HEART TRANSPLANT Diabetes Son 1 Other: Other Son 1 CIDP No Known Problems Son 2 Relation Name Status Comments Brother 1 (Age 62) Brain tumo r; lymphoma Brother 2 (Age 64) COPD Brother 3 Alive COPD Brother 4 [place] Daughter Alive Healthy Father (Age 54) [place] Mother (Age 93) Osteoporos is, HTN, Arthritis Other Niece - unilate ral breast cancer at age 46 Sister 1 Alive Healthy Sister 2 Alive Healthy Sister 3 Alive Healthy Sister 4 Alive Healthy Son 1 Alive Healthy Son 2 Alive Healthy Social History Tobacco Use Types Packs/Day Years Used Date Smoking Tobacco: Never Passive Smoke Exposure: Never Smokeless Tobacco: Never Tobacco Cessation:Counseling Given: Not Answered Alcohol Use Standard Drinks/Week Comments No 0 [...] Orientation Straight 05/23/2024 11 :57 AM EST Obstetrics History Last Filed Vital Signs Vital Sign Reading [...] Mass Index 26.42 07/09/2024 12:21 AM EST Plan of Treatment Upcoming Encounters Date Type Department Care Team (Late st Contact Info) Description 08/10/2024 10:00 AM EST Office Visit [facility] Hematology Oncology [address] [place] [phone] Jaime Grimaldo MD [address] [place] [address] 08/15/2024 1:30 PM EST Office Visit Thoracic Surgery - [place] [address] [phone] Cecily Montez MD [address] [address] 08/23/2024 3:00 PM EST Office Visit Gastroenterology - [address] [facility] [address] [place] [phone] Josiane Smith, REFINERY OPERATOR [employer] [facility] 299 [facility] [address] [place] [address] 08/24/2024 11:15 AM EST Office Visit Internal Medicine - [facility] [address] [place], [place] [phone] Eloisa Vázquez, [address] [place] [address] 09/05/2024 10:00 AM EDT Office Visit Endocrinology - [place] [address] [place] [phone] Kathy Michelle PA [address] [place] [address] 09/06/2024 11:00 AM EDT Ancillary Procedure [facility] [address] 300 [facility] [address] [place] [phone] 01/24/2025 1:30 PM EDT Consult Nephrology - [address] [phone] Chencho Wayne MD [address] [place] [phone] Health Maintenance Due Date Last Done Comments Diabetes: Annual Foot Exam 1955 Diabetes: Annual Retina Eye Exam 1955 Zoster Vaccines (1 of 2) 1962 RSV Immunization Patients 60+ Years Old (1 - 1-dose 75+ series) 2018 Depression Screening 06/07/2022 Medicare Annual Wellness Visit 06/07/2022 Social Influencers of Health Screening 06/07/2022 DTaP,Tdap,and Td Vaccines (3 - Td or Tdap) 03/31/2023 09/29/2022, 08/12/2012 Osteoporosis Screening (Bone Density Screening) 04/15/2023 04/15/2018 COVID-19 Vaccine ( season) 2024 04/21/2022, 10/14/2021, 03/27/2021, Additional history exists Diabetes: Blood Sugar Control Test (HGBA1C) 11/29/2024 05/31/2024, 01/25/2024, 12/28/2023, Additional history exists Diabetes: Annual Urine Albumin-Creatinine Ratio (uACR) 07/19/2025 07/19/2024, 06/06/2024 Diabetes: Annual GFR (Glomerular Filtration Rate) 08/05/2025 08/05/2024, 08/04/2024, 08/01/2024, Additional history exists Hypertension/CHF/CAD Annual BMP Blood Test 08/05/2025 08/05/2024, 08/04/2024, 08/01/2024, Additional history exists Falls Risk Assessment 08/06/2025 08/06/2024 Cholesterol Screening (Lipid Panel) 05/31/2029 05/31/2024 Pneumococcal Vaccine: 50+ Years Completed 05/31/2015, 08/02/2010 Influenza Vaccine Completed 03/22/2024, , 03/24/2022, Additional history exists HIB Vaccines Aged Out No longer eligi ble based on patient's age to complete this topic HPV Vaccines Aged Out No longer eligi ble based on patient's age to complete this topic Hepatitis A Vaccines Aged Out No long er eligible based on patient's age to complete this topic Hepatitis B Vaccines Aged Out No long er eligible based on patient's age to complete this topic IPV Vaccines Aged Out No longer eligi ble based on patient's age to complete this topic MMR Vaccines Aged Out No longer eligi ble based on patient's age to complete this topic Meningococcal ACWY Vaccine Aged Out N o longer eligible based on patient's age to complete this topic Meningococcal B Vacine Aged Out No lo nger eligible based on patient's age to complete this topic RSV Immunization Patients Under 20 months Aged Out No longer eligible based on patient's age to complete this topic Varicella Vaccines Aged Out No longer eligible based on patient's age to complete this topic Medical Devices Implanted Type Area Rubberizing Mechanic Device Identifier Shelf Expiration Date Model / Serial / Lot Cath Dial W/Vt Kt [id number] Palindrome Precision - [id number] - [id number] Implanted:Qty: 1 on 07/15/2024 by Fela Palomo MD at [facility] Dialysis Catheters Left: Chest Wall [facility] [id number] 09/26/2028 [id number] / [id number] / [id number] Sponge Surgifoam Gel 12 X 7mm - [id number] - [id number] Implanted:Qty: 1 on 05/23/2024 by Fela Palomo MD at [facility] Hemostasis Right: Lung [facility] [employer] [id number] 08/27/20271971 [id number] / Sponge Surgifoam Gel 12 X 7mm - [id number] - [id number] Implanted:Qty: 1 on 07/22/2024 by Fela Palomo MD at [facility] Hemostasis Left: Kidney [facility] [employer] [id number] 05/24/20281971 [id number] / Procedures Procedure Name Priority Date/Time Associated Diagnosis Comments POCT GLUCOSE BLOOD Routine 08/06/2024 11 :07 AM EST POCT GLUCOSE BLOOD Routine 08/06/2024 7: 26 AM EST POCT GLUCOSE BLOOD Routine 08/05/2024 8: 08 PM EST POCT GLUCOSE BLOOD Routine 08/05/2024 4: 40 PM EST XR CHEST 1 VIEW STAT 08/05/2024 1:43 PM EST POCT GLUCOSE BLOOD Routine 08/05/2024 1: 40 PM EST ..CONCENTRATION Routine 08/05/2024 12:32 PM EST Pulmonary nodule ACID FAST BACILLI STAIN Routine 08/05/19 12:32 PM EST Pulmonary nodule CULTURE BRONCHIAL WITH GRAM STAIN Routine 08/05/2024 12:32 PM EST Pulmonary nodule CULTURE, AFB AND SMEAR WITH REFLEX TO IDENTIFICATION AND SUSCEPTIBILITY Routine 08/05/2024 12:32 PM EST Pulmonary nodule TH AN ENDOTRACHEAL(NO CHARGE) Routine 08/05/2024 12:08 PM EST BASIC METABOLIC PANEL STAT 08/05/2024 7:04 AM [...] AND DIFFERENTIAL Routine 08/03/2024 6:01 AM EST MAGNESIUM Routine 08/03/2024 6:01 AM EST PHOSPHORUS Routine 08/03/2024 6:01 AM EST POCT GLUCOSE [...] AUTO DIFFERENTIAL Routine 08/01/2024 6:59 AM EST BASIC METABOLIC PANEL Routine 08/01/2024 6:59 AM EST CBC AND DIFFERENTIAL Routine 08/01/2024 6:59 AM EST POCT GLUCOSE BLOOD Routine 07/31/2024 8: 23 PM EST POCT GLUCOSE BLOOD Routine 07/31/2024 4: 20 PM EST HEMOGLOBIN AND HEMATOCRIT Routine 07/31/2024 2:30 PM EST POCT GLUCOSE BLOOD Routine 07/31/2024 11 :22 AM EST POCT GLUCOSE BLOOD Routine 07/31/2024 8: 06 AM EST CBC WITH AUTO DIFFERENTIAL Routine 07/31/2024 5:43 AM EST BASIC METABOLIC PANEL Routine 07/31/2024 5:43 AM EST CBC AND DIFFERENTIAL Routine 07/31/2024 5:43 AM EST POCT GLUCOSE [...] BLOOD Routine 07/29/2024 11 :23 AM EST HEPARIN ANTI XA Routine 07/29/2024 5:54 AM EST CBC WITH AUTO DIFFERENTIAL Routine 07/29/2024 5:54 AM EST BASIC METABOLIC PANEL Routine 07/29/2024 5:54 AM EST CBC AND DIFFERENTIAL Routine 07/29/2024 5:54 AM EST HEPARIN [...] AUTO DIFFERENTIAL Routine 07/28/2024 9:51 AM EST BASIC METABOLIC PANEL Routine 07/28/2024 9:51 AM EST CBC AND DIFFERENTIAL Routine 07/28/2024 9:51 AM EST HEPARIN ANTI XA Routine 07/28/2024 9:51 AM EST POCT GLUCOSE [...] AUTO DIFFERENTIAL Routine 07/27/2024 6:27 AM EST CBC AND DIFFERENTIAL Routine 07/27/2024 6:27 AM EST BASIC METABOLIC PANEL Routine 07/27/2024 6:27 AM EST HEPARIN ANTI XA Routine 07/27/2024 6:27 AM EST COMPLETE BLOOD COUNT Timed 07/27/2024 6:27 AM EST POCT GLUCOSE BLOOD [...] BLOOD Routine 07/24/2024 7: 32 AM EST HEPARIN ANTI XA Routine 07/24/2024 6:48 AM EST CBC WITH AUTO DIFFERENTIAL Routine 07/24/2024 6:48 AM EST CBC AND DIFFERENTIAL Routine 07/24/2024 6:48 AM EST BASIC METABOLIC PANEL Routine 07/24/2024 6:48 AM EST COMPLETE BLOOD COUNT Timed 07/24/2024 6:48 AM EST HEPARIN ANTI XA [...] AUTO DIFFERENTIAL Routine 07/23/2024 5:44 AM EST BASIC METABOLIC PANEL Routine 07/23/2024 5:44 AM EST CBC AND DIFFERENTIAL Routine 07/23/2024 5:44 AM EST HEPARIN ANTI [...] ANTI XA Timed 07/22/2024 11:00 AM EST LAVENDER - EDTA Routine 07/22/2024 10:53 AM EST SST - GOLD Routine 07/22/2024 10:53 AM EST EXTRA TUBES Routine 07/22/2024 10:53 AM EST POCT GLUCOSE [...] ANTI XA Routine 07/20/2024 5:46 AM EST CBC AND DIFFERENTIAL Routine 07/20/2024 5:46 AM EST BASIC METABOLIC PANEL Routine 07/20/2024 5:46 AM EST COMPLETE BLOOD COUNT Timed 07/20/2024 5:46 AM EST POCT GLUCOSE BLOOD Routine 07/19/2024 8: 18 PM EST POCT GLUCOSE BLOOD Routine 07/19/2024 7: 29 PM EST POCT GLUCOSE BLOOD Routine 07/19/2024 4: 01 PM EST HEMOGLOBIN AND HEMATOCRIT STAT 07/19/2024 2:31 PM EST CREATININE, URINE, RANDOM Routine 07/19/2024 12:01 PM EST MICROALBUMIN CREATININE URINE RATIO Routine 07/19/2024 12:01 PM EST POCT GLUCOSE BLOOD Routine 07/19/2024 11 :32 AM EST POCT GLUCOSE BLOOD Routine 07/19/2024 9: 07 AM EST CBC WITH AUTO DIFFERENTIAL Routine 07/19/2024 7:55 AM EST PARATHYROID HORMONE RELATED PROTEIN Routine 07/19/2024 7:55 AM EST CBC AND [...] MICROSCOPIC ONLY Routine 07/18/2024 6:09 AM EST HEPARIN ANTI XA Timed 07/18/2024 6:07 AM EST CBC WITH AUTO DIFFERENTIAL Routine 07/18/2024 6:07 AM EST CALCIUM, IONIZED Routine 07/18/2024 6:07 AM EST BASIC METABOLIC PANEL Routine 07/18/2024 6:07 AM EST CBC AND DIFFERENTIAL Routine 07/18/2024 6:07 AM EST HEPARIN [...] BLOOD Routine 07/17/2024 7: 57 AM EST HEPARIN ANTI XA Timed 07/17/2024 6:30 AM EST CBC WITH AUTO DIFFERENTIAL Routine 07/17/2024 6:30 AM EST PHOSPHORUS Routine 07/17/2024 6:30 AM EST MAGNESIUM Routine 07/17/2024 6:30 AM EST BASIC METABOLIC PANEL Routine 07/17/2024 6:30 AM EST CBC AND DIFFERENTIAL Routine 07/17/2024 6:30 AM EST COMPLETE BLOOD COUNT Timed 07/17/2024 6:30 AM EST HEPARIN ANTI XA Timed 07/17/2024 12:16 AM EST POCT GLUCOSE BLOOD Routine 07/16/2024 8: 30 PM EST HEPARIN ANTI XA STAT 07/16/2024 5:50 PM EST ACTIVATED PARTIAL THROMBOPLASTIN TIME STAT 07/16/2024 5:50 PM EST POCT GLUCOSE BLOOD Routine 07/16/2024 4: 28 PM EST VAS US DUPLEX LOWER EXT VENOUS BILAT Routine 07/16/2024 12:05 PM EST Bilateral leg edema POCT GLUCOSE BLOOD Routine 07/16/2024 10 :42 AM EST BASIC METABOLIC PANEL STAT 07/16/2024 6:45 AM EST COMPLETE BLOOD COUNT STAT 07/16/2024 6:45 AM EST POCT GLUCOSE BLOOD Routine 07/15/2024 8: 26 PM EST HEMODIALYSIS INPATIENT Routine 7:20 PM EST POCT GLUCOSE BLOOD Routine 07/15/2024 4: 30 PM EST IR INSERT TUNNELED CVC WO PORT OR PUMP MORE 5YRS LEFT Routine 07/15/2024 3:36 PM EST HEMODIALYSIS INPATIENT Routine 5 3:13 PM EST POCT GLUCOSE BLOOD Routine 07/15/2024 10 :57 AM EST BASIC METABOLIC PANEL STAT 07/15/2024 8:56 AM EST HEPATITIS B SURFACE ANTIGEN WITH CONFIRMATION Routine 07/15/2024 8:56 AM EST HEPATITIS B SURFACE ANTIBODY QUANTITATIVE Routine 07/15/2024 8:56 AM EST RENAL FUNCTION PANEL STAT 07/15/2024 8:56 AM EST POCT GLUCOSE BLOOD Routine 07/15/2024 8: 03 AM EST RBC MORPHOLOGY REVIEW Routine 07/15/2024 6:56 AM EST CBC WITH AUTO DIFFERENTIAL Routine 07/15/2024 6:56 AM EST PROTHROMBIN TIME WITH INR Routine 07/15/2024 6:56 AM EST MAGNESIUM Routine 07/15/2024 6:56 AM EST BASIC METABOLIC PANEL Routine 07/15/2024 6:56 AM EST CBC AND DIFFERENTIAL Routine 07/15/2024 6:56 AM EST POCT GLUCOSE BLOOD Routine 07/14/2024 8: 07 PM EST POCT GLUCOSE BLOOD Routine 07/14/2024 4: 26 PM EST POCT GLUCOSE BLOOD Routine 07/14/2024 11 :32 AM EST POCT GLUCOSE BLOOD Routine 07/14/2024 8: 19 AM EST EXTRACTABLE NUCLEAR ANTIBODIES PROFILE Add-On 07/14/2024 6:00 AM EST C4 COMPLEMENT Add-On 07/14/2024 6:00 AM EST C3 COMPLEMENT Add-On 07/14/2024 6:00 AM EST ANTI-NEUTROPHILIC CYTOPLASMIC ANTIBODY Add-On 07/14/2024 6:00 AM EST CBC WITH AUTO DIFFERENTIAL Routine 07/14/2024 6:00 AM EST MAGNESIUM Routine 07/14/2024 6:00 AM EST BASIC METABOLIC PANEL Routine 07/14/2024 6:00 AM EST CBC AND DIFFERENTIAL Routine 07/14/2024 6:00 AM EST POCT GLUCOSE [...] AUTO DIFFERENTIAL Routine 07/13/2024 6:38 AM EST PHOSPHORUS Routine 07/13/2024 6:38 AM EST MAGNESIUM Routine 07/13/2024 6:38 AM EST CBC AND DIFFERENTIAL Routine 07/13/2024 6:38 AM EST BASIC METABOLIC PANEL Routine 07/13/2024 6:38 AM EST URIC ACID Routine 07/13/2024 6:38 AM EST SEDIMENTATION RATE Routine 07/13/2024 6: 38 AM EST POCT GLUCOSE BLOOD Routine 07/12/2024 8: 06 PM EST POCT GLUCOSE BLOOD Routine 07/12/2024 3: 53 PM EST PROTEIN AND CREATININE WITH RATIO, URINE Routine 07/12/2024 3:27 PM EST CREATININE, URINE, RANDOM STAT 07/12/2024 3:27 PM EST SODIUM, URINE, RANDOM Routine 07/12/2024 3:27 PM EST OSMOLALITY, URINE Routine 07/12/2024 3:[address] CHEST WO CONTRAST STAT 07/12/2024 12:48 PM EST POCT GLUCOSE BLOOD Routine 07/12/2024 11 :48 AM EST POCT GLUCOSE BLOOD Routine 07/12/2024 8: 07 AM EST LIPASE Add-On 07/12/2024 6:19 AM EST HEPATIC FUNCTION PANEL Add-On 6:19 AM EST PROCALCITONIN Add-On 07/12/2024 6:19 AM EST C-REACTIVE PROTEIN Add-On 07/12/2024 6: 19 AM EST CBC WITH AUTO DIFFERENTIAL Routine 07/12/2024 6:19 AM EST PHOSPHORUS Routine 07/12/2024 6:19 AM EST MAGNESIUM Routine 07/12/2024 6:19 AM EST CBC AND DIFFERENTIAL Routine 07/12/2024 6:19 AM EST BASIC METABOLIC PANEL Routine 07/12/2024 6:19 AM EST POCT GLUCOSE BLOOD Routine 07/11/2024 8: 03 PM EST POCT GLUCOSE BLOOD Routine 07/11/2024 3: 51 PM EST POCT GLUCOSE BLOOD Routine 07/11/2024 11 :10 AM EST POCT GLUCOSE BLOOD Routine 07/11/2024 8: 17 AM EST WI IMMUNOFIXATION ELECTROPHORESIS SERUM Routine 07/11/2024 6:21 AM EST HEPATIC FUNCTION PANEL Add-On 6:21 AM EST IMMUNOGLOBULINS IGG, IGA, IGM Routine 07/11/2024 6:21 AM EST IMMUNOFIXATION ELECTROPHORESIS Routine 07/11/2024 6:21 AM EST CBC WITH AUTO DIFFERENTIAL Routine 07/11/2024 6:21 AM EST IMMUNOFIXATION ELECTROPHORESIS Routine 07/11/2024 6:21 AM EST CBC AND DIFFERENTIAL Routine 07/11/2024 6:21 AM EST BASIC METABOLIC PANEL Routine 07/11/2024 6:21 AM EST POCT GLUCOSE BLOOD Routine 07/10/2024 8: 33 PM EST POCT GLUCOSE BLOOD Routine 07/10/2024 4: 11 PM EST POCT GLUCOSE BLOOD Routine 07/10/2024 11 :29 AM EST POCT GLUCOSE BLOOD Routine 07/10/2024 8: 40 AM EST TRIIODOTHYRONINE FREE Add-On 07/10/2024 5:16 AM EST THYROXINE FREE Add-On 07/10/2024 5:16 AM EST PARATHYROID HORMONE INTACT Add-On 07/10/2024 5:16 AM EST CBC WITH AUTO DIFFERENTIAL Routine 07/10/2024 5:16 AM EST MAGNESIUM Routine 07/10/2024 5:16 AM EST CBC AND DIFFERENTIAL Routine 07/10/2024 5:16 AM EST BASIC METABOLIC PANEL Routine 07/10/2024 5:16 AM EST POCT GLUCOSE BLOOD Routine 07/09/2024 7: 52 PM EST POCT GLUCOSE BLOOD Routine 07/09/2024 4: 27 PM EST POCT GLUCOSE BLOOD Routine 07/09/2024 11 :33 AM EST POCT GLUCOSE BLOOD Routine 07/09/2024 8: 59 AM EST CBC WITH AUTO DIFFERENTIAL Routine 07/09/2024 6:25 AM EST CREATINE KINASE Routine 07/09/2024 6:25 AM EST CALCIUM, IONIZED Routine 07/09/2024 6:25 AM EST CBC AND DIFFERENTIAL Routine 07/09/2024 6:25 AM EST MAGNESIUM Routine 07/09/2024 6:25 AM EST BASIC METABOLIC [...] BLOOD Routine 07/08/2024 8: 46 PM EST ELECTROLYTE PANEL Timed 07/08/2024 8:3 0 PM EST BASIC METABOLIC PANEL Routine 07/08/2024 8:30 PM EST COMPLETE BLOOD COUNT Routine 07/08/2024 8:30 PM EST POCT GLUCOSE BLOOD Routine 07/08/2024 6: 19 PM EST WI PROTEIN ELECTROPHORETIC FRACTIONATION & QUANTITATION SERUM Routine 07/08/2024 5:52 PM EST PROTEIN, TOTAL Routine 07/08/2024 5:52 PM EST BASIC METABOLIC PANEL Routine 07/08/2024 5:52 PM EST ALBUMIN Routine 07/08/2024 5:52 PM EST ELECTROLYTE PANEL Timed 07/08/2024 5:5 2 PM EST PROTEIN ELECTROPHORESIS, SERUM Routine 07/08/2024 5:52 PM EST US RETROPERITONEAL COMPLETE Routine 07/08/2024 4:30 PM EST TRANSFUSE RED BLOOD CELLS Routine 07/08/2024 4:11 PM EST RESPIRATORY VIRUS PANEL MOLECULAR STUDY STAT 07/08/2024 2:59 PM EST XR CHEST 2 VIEWS STAT 07/08/2024 2:01 PM EST TYPE AND SCREEN STAT 07/08/2024 1:18 PM EST TROPONIN I HIGH SENSITIVITY STAT 07/08/2024 1:18 PM EST PREPARE RBC Routine 07/08/2024 1:17 PM EST ROBERTSON URINE CULTURE TUBE STAT 07/08/19 25 12:59 PM EST URINALYSIS WITH REFLEX MICROSCOPIC AND CULTURE STAT 07/08/2024 12:59 PM EST URINALYSIS WITH REFLEX MICROSCOPIC AND CULTURE STAT 07/08/2024 12:59 PM EST CULTURE URINE STAT 07/08/2024 12:[address] HEAD WO CONTRAST STAT 07/08/2024 1 2:[address] CERVICAL SPINE WO CONTRAST STAT 07/08/2024 12:11 PM EST CREATINE KINASE AND CKMB Add-On 025 11:10 AM EST IRON AND TIBC Add-On 07/08/2024 11:10 AM EST FERRITIN Add-On 07/08/2024 11:10 AM EST RETICULOCYTE COUNT Add-On 07/08/2024 11 :10 AM EST HAPTOGLOBIN Add-On 07/08/2024 11:10 AM EST FOLATE Add-On 07/08/2024 11:10 AM EST VITAMIN B12 Add-On 07/08/2024 11:10 AM EST CORTISOL Add-On 07/08/2024 11:10 AM EST THYROID STIMULATING HORMONE Add-On 07/08/2024 11:10 AM EST URIC ACID Add-On 07/08/2024 11:10 AM EST OSMOLALITY Add-On 07/08/2024 11:10 AM EST PARATHYROID HORMONE INTACT Add-On 07/08/2024 11:10 AM EST CBC WITH AUTO DIFFERENTIAL STAT 07/08/2024 11:10 AM EST B-TYPE NATRIURETIC PEPTIDE STAT 07/08/2024 11:10 AM EST MAGNESIUM STAT 07/08/2024 11:10 AM EST LIPASE STAT 07/08/2024 11:10 AM EST COMPREHENSIVE METABOLIC PANEL STAT 07/08/2024 11:10 AM EST CBC AND DIFFERENTIAL STAT 07/08/2024 11:10 AM EST TROPONIN I HIGH SENSITIVITY STAT 07/08/2024 11:10 AM EST ECG 12-LEAD STAT 07/08/2024 10:[address] CHEST WO CONTRAST Routine 06/17/2024 10:27 AM EST Lung mass Neoplasm CBC WITH AUTO DIFFERENTIAL Routine 06/17/2024 9:28 AM EST Lung mass CBC AND DIFFERENTIAL Routine 06/17/2024 9:28 AM EST Lung mass BASIC METABOLIC PANEL Routine 06/17/2024 9:27 AM EST Lung mass PROTHROMBIN TIME WITH INR Routine 06/17/2024 9:27 AM EST Lung mass Neoplasm ACTIVATED PARTIAL THROMBOPLASTIN TIME Routine 06/17/2024 9:27 AM EST Lung mass Neoplasm TYPE AND SCREEN Routine 06/17/2024 9:27 AM EST Lung mass ECG 12-LEAD Routine 06/17/2024 8:35 AM EST Primary hypertension BASIC METABOLIC PANEL Routine 06/06/2024 9:40 AM EST Type 2 diabetes mellitus without complication, without long-term current use of insulin ([facility]) CKD (chronic kidney disease) stage 4, GFR 15-29 ml/min ([facility]) MICROALBUMIN CREATININE URINE RATIO Routine 06/06/2024 9:27 AM EST Iron deficiency anemia, unspecified Cataract, diabetic (CMS/HCC) Hyperlipemia CBC WITH AUTO DIFFERENTIAL Routine 05/31/2024 9:22 AM EST Iron deficiency anemia, unspecified Cataract, diabetic (CMS/HCC) Hyperlipemia FERRITIN Routine 05/31/2024 9:22 AM EST Iron deficiency anemia, unspecified Cataract, diabetic (CMS/HCC) Hyperlipemia CBC AND DIFFERENTIAL Routine 05/31/2024 9:22 AM EST Iron deficiency anemia, unspecified Cataract, diabetic (CMS/HCC) Hyperlipemia IRON AND TIBC Routine 05/31/2024 9:22 AM EST Iron deficiency anemia, unspecified Cataract, diabetic (CMS/HCC) Hyperlipemia BASIC METABOLIC PANEL Routine 05/31/2024 9:22 AM EST Cataract, diabetic (CMS/HCC) HEMOGLOBIN A1C Routine 05/31/2024 9:22 AM EST Cataract, diabetic (CMS/HCC) LIPID PANEL WITH REFLEX TO DIRECT LDL Routine 05/31/2024 9:22 AM EST Iron deficiency anemia, unspecified Cataract, diabetic (CMS/HCC) Hyperlipemia XR CHEST 2 VIEWS Routine 05/23/2024 5:01 PM EST IR BX LUNG/MEDIASTINUM PERC NDL CORE W IMAGE GUIDE Routine 05/23/2024 3:10 PM EST Pulmonary nodules TISSUE EXAM Routine 05/23/2024 2:49 PM EST Pulmonary nodules SALLY DEXA AXIAL SKELETON Routine 04/15/20 10:29 AM EDT Encounter for screening for osteoporosis from Last 3 Months or Most Recently Relevant to Health Maintenance Results * (ABNORMAL) POCT Glucose, blood (08/06/2024 11:07 AM EST) Only the most recent of114 resultswithin the time period is included. Glucose POCT 187(H) 70 - 100 mg/dL 08/06/2024 11:09 AM EST [facility] Blood Capillary blood specimen / Unknown 08/06/2024 11:07 AM EST 08/06/2024 11:10 AM EST Steve Cruz MD LAB POINT OF CA RE TEST DOCKED DEVICE UNSOLICITED RESULTS Final Result [facility] [address] [place] [address], [place] [phone] * XR Chest 1 View (08/05/2024 1:43 PM EST) Only the most recent of2 resultswithin the time period is included. Anatomical Region Laterality Modality Body Radiographic Jennifer [...] Signed Date: 08/05/2024 13:49 ET Workstation ID: [id number] Transcribed By: Self Edit Transcribed Date: 08/05/2024 [...] Signed Date: 08/05/2024 13:49 ET Workstation ID: [id number] Transcribed By: Self Edit Transcribed Date: 08/05/2024 13:46 ET Cecily Montez MD IMG XR PROCEDURES Final Result * Concentration (08/05/2024 12:32 PM EST) AFB Concentration Performed 025 3:05 PM EST [facility] Structure of upper lobe of right lung / Unknown 08/05/2024 12:32 PM EST 08/05/2024 1:17 PM EST Narrative [facility] - 08/06/2024 3:05 PM EST Performed at: ??01 - [facility] [address] ??[id number] Coffee Grower: Diane Belle MD, Phone: ??[phone] Cecily Montez MD LAB BLOOD ORDERABLES Final Resul t [facility] * Acid fast bacilli stain (08/05/2024 12:32 PM EST) AFB Stain Result No Acid fast bacilli seen on direct smear (Fuchsin method, 1000x) No Acid Fast Bacilli seen on direct smear 08/05/2024 2:18 PM EST [facility] Wash Structure of upper lobe of right lung / Unknown 08/05/2024 12:32 PM EST 08/05/2024 1:17 PM EST Cecily Montez MD LAB MICROBIOLOGY - GENERAL ORDER SYLVAIN Final Result Performing Organization Address [facility] de Phone Number [facility] [address] [place] [address], [place] [phone] * TH AN ENDOTRACHEAL(NO CHARGE) (08/05/2024 12:08 PM EST) Narrative Candelaria Tatum CRNA - 08/05/2024 12:08 PM EST Candelaria Tatum CRNA ? 08/05/2024 12:10 PM General Information and Staff Patient location during procedure: OR Anesthesiologist: Monroe Kim MD Resident/[employer] OPERATOR: Candelaria Tatum CRNA Performed: resident/[employer]NER OPERATOR/CAA Performed by: Candelaria Tatum CRNA Authorized by: Monroe Kim MD ?? Intubation Airway not difficult Urgency: elective Final Airway Details Successful airway: ETT Cuffed: yes Successful intubation technique: direct laryngoscopy Endotracheal tube insertion site: oral Blade: Viraj Blade size: #3 ETT size (mm): 9.0 Cormack-Lehane Classification: grade I - full view of glottis Placement verified by: chest auscultation, capnometry and palpation of cuff Measured from: gums ETT to gums (cm): 21 Number of attempts at approach: 1Final airway type: endotracheal airway Indications and Patient Condition Indications for airway management: anesthesia Spontaneous Ventilation: absent Sedation level: Yes Preoxygenated: yes Soft Tissue Damage: No Dentition Unchanged: Yes Patient position: neutral MILS maintained throughout Mask difficulty assessment: 1 - vent by mask us Monroe Kim MD ANESTHESIA ORDERABLES Final Re sult * (ABNORMAL) Basic metabolic panel (08/05/2024 7:04 AM EST) Only the most recent of30 resultswithin the time period is included. Sodium 133 133 - 145 mmol/L LAB CHEMISTRY METHOD 08/05/2024 8:01 AM [facility] Potassium 4.5 3.5 - 5.5 mmol/L LAB CHEMISTRY METHOD 08/05/2024 8:01 AM [facility] Chloride 96 96 - 110 mmol/L LAB CHEMISTRY METHOD 08/05/2024 8:01 AM [facility] CO2 32 21 - 32 mmol/L LAB CHEMISTRY METHOD 08/05/2024 8:01 AM [facility] Anion Gap 5 3 - 11 LAB CHEMISTRY METHOD 08/05/2024 8:01 AM [facility] Glucose 138(H) 70 - 100 mg/dL LAB CHEMISTRY METHOD 08/05/2024 8:01 AM [facility] BUN 53(H) 5 - 25 mg/dL LAB CHEMISTRY METHOD 08/05/2024 8:01 AM [facility] Creatinine 3.91(H) 0.50 - 1.10 mg/dL LAB CHEMISTRY METHOD 08/05/2024 8:01 AM [facility] eGFR 11(L) >=60 mL/min/1. 73m2 LAB CHEMISTRY METHOD 08/05/2024 8:01 AM [facility] Comment:Calculation based on the??Chronic Kidney Disease Epidemiology Collaboration (CKD-EPI) equation refit??without adjustment for race. BUN/Creatinine Ratio 13.6 LAB CHEMISTRY METHOD 08/05/2024 8:01 AM [facility] Calcium 8.4(L) 8.5 - 10.5 mg/dL LAB CHEMISTRY METHOD 08/05/2024 8:01 AM [facility] Blood Venous blood specimen / Unknown Venipuncture / Unknown 08/05/2024 7:04 AM EST 08/05/2024 7:34 AM EST Steve Cruz MD LAB BLOOD ORDERABLES Fi nal Result [facility] [address] [place] [address], * (ABNORMAL) CBC - Every 3 Days (08/05/2024 7:03 AM EST) Only the most recent of13 resultswithin the time period is included. WBC 8.8 4.8 - 10.8 K/mcL LAB HEMETOLOGY METHOD 08/05/2024 7:42 AM [facility] RBC 2.90(L) 3.80 - 4.80 M/mcL LAB HEMETOLOGY METHOD 08/05/2024 7:42 AM [facility] Hemoglobin 7.9(L) 11.5 - 16.0 g/dL LAB HEMETOLOGY METHOD 08/05/2024 7:42 AM [facility] Hematocrit 25.5(L) 35.0 - 47.0 % LAB HEMETOLOGY METHOD 08/05/2024 7:42 AM [facility] MCV 87.6 79.0 - 98.0 FL LAB HEMETOLOGY METHOD 08/05/2024 7:42 AM [facility] MCH 27.1 27.0 - 32.0 pcg LAB HEMETOLOGY METHOD 08/05/2024 7:42 AM [facility] MCHC 31.0(L) 32.0 - 37.0 g/dL LAB HEMETOLOGY METHOD 08/05/2024 7:42 AM [facility] RDW 21.9(H) 11.0 - 15.0 % LAB HEMETOLOGY METHOD 08/05/2024 7:42 AM EST [facility] Platelets 180 130 - 400 K/mcL LAB HEMETOLOGY METHOD 08/05/2024 7:42 AM EST [facility] MPV 10.8 7.0 - 11.0 FL LAB HEMETOLOGY METHOD 08/05/2024 7:42 AM EST [facility] NRBC 0.0 <1.0 % LAB HEMETOLOGY METHOD 08/05/2024 7:42 AM [facility] NRBC Absolute 0.00 <0.10 K/mcL LAB HEMETOLOGY METHOD 08/05/2024 7:42 AM [facility] Blood Venous blood specimen / Unknown Venipuncture / Unknown 08/05/2024 7:03 AM EST 08/05/2024 7:34 AM EST [employer] [facility] LAB BLOOD ORDERABLES Final R esult [facility] [address] [place] [address], * (ABNORMAL) Creatinine, Serum - Every 7 Days (08/04/2024 6:31 AM EST) Creatinine 2.49(H) 0.50 - 1.10 mg/dL LAB CHEMISTRY METHOD 08/04/2024 7:31 AM EST [facility] eGFR 19(L) >=60 mL/min/1. 73m2 LAB CHEMISTRY METHOD 08/04/2024 7:31 AM EST [facility] Comment:Calculation based on the??Chronic Kidney Disease Epidemiology Collaboration (CKD-EPI) equation refit??without adjustment for race. Blood Venous blood specimen / Unknown Venipuncture / Unknown 08/04/2024 6:31 AM EST 08/04/2024 6:54 AM EST Jonny Mathur MD LAB BLOOD ORDERABLES Final Re sult Performing Organization Address [facility]/ZIP Co de Phone Number [facility] [address] [place] [address], * Hepatitis B surface antigen with reflex to confirmation (08/03/2024 8:49 AM EST) Only the most recent of3 resultswithin the time period is included. Pathologist [facility] Hepatitis B Surface Ag Negative Negative LAB CHEMISTRY METHOD 08/03/2024 10:11 AM EST [facility] Blood Venous blood specimen / Unknown Venipuncture / Unknown 08/03/2024 8:49 AM EST 08/03/2024 9:22 AM EST [facility] - 08/03/2024 10:11 AM EST Over the counter supplements containing high doses of biotin may interfere with this assay. ??If interference is suspected, patients shoud be retested after refraining from biotin supplements for 72 hours. Steve Cruz MD LAB BLOOD ORDERABLES Fi nal Result Performing Organization Address [facility] Co de Phone Number [facility] [address] [place] [address], [place] [phone] * Hepatitis B surface antibody quantitative (08/03/2024 8:49 AM EST) Only the most recent of2 resultswithin the time period is included. Pathologist [facility] Hepatitis B Surface Ab Negative Negative LAB CHEMISTRY METHOD 08/03/2024 9:59 AM EST [facility] Hepatitis B Surface Ab Quantitative <3.1 mIU/mL LAB CHEMISTRY METHOD 08/03/2024 9:59 AM EST [facility] Blood Venous blood specimen / Unknown Venipuncture / Unknown 08/03/2024 8:49 AM EST 08/03/2024 9:22 AM EST [facility] - 08/03/2024 9:59 AM EST >=10 mIU/mL is considered to be consistent with immunity. Steve Cruz MD LAB BLOOD ORDERABLES Fi nal Result [facility] [address] [place] [address], * (ABNORMAL) CBC auto differential (08/03/2024 6:01 AM EST) Only the most recent of24 resultswithin the time period is included. WBC 7.5 4.8 - 10.8 K/mcL LAB HEMETOLOGY METHOD 08/03/2024 7:49 AM [facility] RBC 2.90(L) 3.80 - 4.80 M/mcL LAB HEMETOLOGY METHOD 08/03/2024 7:49 AM [facility] Hemoglobin 7.8(L) 11.5 - 16.0 g/dL LAB HEMETOLOGY METHOD 08/03/2024 7:49 AM [facility] Hematocrit 24.7(L) 35.0 - 47.0 % LAB HEMETOLOGY METHOD 08/03/2024 7:49 AM [facility] MCV 85.8 79.0 - 98.0 FL LAB HEMETOLOGY METHOD 08/03/2024 7:49 AM [facility] MCH 27.1 27.0 - 32.0 pcg LAB HEMETOLOGY METHOD 08/03/2024 7:49 AM [facility] MCHC 31.6(L) 32.0 - 37.0 g/dL LAB HEMETOLOGY METHOD 08/03/2024 7:49 AM [facility] RDW 21.6(H) 11.0 - 15.0 % LAB HEMETOLOGY METHOD 08/03/2024 7:49 AM [facility] Platelets 188 130 - 400 K/mcL LAB HEMETOLOGY METHOD 08/03/2024 7:49 AM [facility] MPV 11.2(H) 7.0 - 11.0 FL LAB HEMETOLOGY METHOD 08/03/2024 7:49 AM [facility] NRBC 0.0 <1.0 % LAB HEMETOLOGY METHOD 08/03/2024 7:49 AM [facility] NRBC Absolute 0.00 <0.10 K/mcL LAB HEMETOLOGY METHOD 08/03/2024 7:49 AM [facility] Neutrophils Relative 77.2 % LAB HEMETOLOGY METHOD 08/03/2024 7:49 AM [facility] Lymphocytes Relative 12.8 % LAB HEMETOLOGY METHOD 08/03/2024 7:49 AM [facility] Monocytes Relative 8.0 % LAB HEMETOLOGY METHOD 08/03/2024 7:49 AM [facility] Eosinophils Relative 0.4 % LAB HEMETOLOGY METHOD 08/03/2024 7:49 AM [facility] Basophils Relative 0.1 % LAB HEMETOLOGY METHOD 08/03/2024 7:49 AM [facility] Immature Granulocytes Relative 1.5 % LAB HEMETOLOGY METHOD 08/03/2024 7:49 AM [facility] Neutrophils Absolute 5.78 1.50 - 7.00 K/mcL LAB HEMETOLOGY METHOD 08/03/2024 7:49 AM [facility] Lymphocytes Absolute 0.96(L) 1.00 - 5.00 K/mcL LAB HEMETOLOGY METHOD 08/03/2024 7:49 AM [facility] Monocytes Absolute 0.60 0.20 - 1.00 K/mcL LAB HEMETOLOGY METHOD 08/03/2024 7:49 AM [facility] Eosinophils Absolute 0.03 0.00 - 0.50 K/mcL LAB HEMETOLOGY METHOD 08/03/2024 7:49 AM EST [facility] Basophils Absolute 0.01 0.00 - 0.20 K/[facility] HEMETOLOGY METHOD 08/03/2024 7:49 AM EST [facility] Immature Granulocytes Absolute 0.11(H) 0.00 - 0.03 K/[facility] LAB HEMETOLOGY METHOD 08/03/2024 7:49 AM EST [facility] Blood Venous blood specimen / Unknown Venipuncture / Unknown 08/03/2024 6:01 AM EST 08/03/2024 7:27 AM EST us Steve Cruz MD LAB BLOOD ORDERABLES Fi nal Result Performing Organization Address [facility] de Phone Number [facility] [address] [place] [address], [place] [phone] * Phosphorus (08/03/2024 6:01 AM EST) Only the most recent of4 resultswithin the time period is included. Phosphorus 4.3 2.5 - 4.5 mg/dL LAB CHEMISTRY METHOD 08/03/2024 8:11 AM EST [facility] Blood Venous blood specimen / Unknown Venipuncture / Unknown 08/03/2024 6:01 AM EST 08/03/2024 7:27 AM EST us Steve Cruz MD LAB BLOOD ORDERABLES Fi nal Result Performing Organization Address City/[facility]/ZIP Co de Phone Number [facility] [address] [place] [address], [place] [phone] * Magnesium (08/03/2024 6:01 AM EST) Only the most recent of9 resultswithin the time period is included. Magnesium 2.1 1.9 - 2.6 mg/dL LAB CHEMISTRY METHOD 08/03/2024 8:11 AM EST [facility] Blood Venous blood specimen / Unknown Venipuncture / Unknown 08/03/2024 6:01 AM EST 08/03/2024 7:27 AM EST Steve Cruz MD LAB BLOOD ORDERABLES Fi nal Result Performing Organization Address City/[facility]/ZIP Co de Phone Number [facility] [address] [place] [address], * Type and screen (08/02/2024 3:04 PM EST) Only the most recent of5 resultswithin the time period is included. Pathologist [facility] ABO Group O 08/02/2024 4:52 PM [facility] Rh Type Positive 08/02/2024 4:52 PM [facility] Antibody Screen Negative 08/02/2024 4:52 PM [facility] Blood Venous blood specimen / Unknown Venipuncture / Unknown 08/02/2024 3:04 PM EST 08/02/2024 4:07 PM EST Steve Cruz MD LAB BLOOD BANK TEST ORD ERABLES Final Result Performing Organization Address City/[facility] Co de Phone Number [facility] [address] [place] [address], * Prepare RBC: 1 Units (08/02/2024 2:09 PM EST) Only the most recent of4 resultswithin the time period is included. Product Code [id number] 08/02/2024 6:27 PM [facility] Unit Number [id number] 08/02/19 6:27 PM [facility] Crossmatch Compatible 08/02/2024 5:03 PM [facility] Dispense Status Transfused 08/02/2024 6:27 PM [facility] Unit ABO Rh OPOS 08/02/2024 6:27 PM [facility] Unit Expiration Date Time [id number] 08/02/2024 6:27 PM [facility] Unit Blood Type 5100 08/02/2024 6:27 PM [facility] Blood Venous blood specimen / Unknown 08/02/2024 2:09 PM EST 08/02/2024 4:07 PM EST Steve Cruz MD BLOOD BANK PRODUCT ORDE RABLES Final Result Performing Organization Address [facility]/ZIP Co de Phone Number [facility] [address] [place] [address], * (ABNORMAL) Hemoglobin and hematocrit (07/31/2024 2:30 PM EST) Only the most recent of4 resultswithin the time period is included. Hemoglobin 7.3(L) 11.5 - 16.0 g/dL LAB HEMETOLOGY METHOD 07/31/2024 3:12 PM [facility] Hematocrit 23.7(L) 35.0 - 47.0 % LAB HEMETOLOGY METHOD 07/31/2024 3:12 PM EST [facility] Blood Venous blood specimen / Unknown Venipuncture / Unknown 07/31/2024 2:30 PM EST 07/31/2024 3:05 PM EST Jonny Mathur MD LAB BLOOD ORDERABLES Final Re sult [facility] [address] [place] [address], * (ABNORMAL) Hepatic Function Panel - STAT (07/30/2024 11:52 AM EST) Only the most recent of3 resultswithin the time period is included. Total Protein 5.2(L) 6.0 - 8.0 g/dL LAB CHEMISTRY METHOD 07/30/2024 12:56 PM [facility] Albumin 2.4(L) 3.2 - 5.0 g/dL LAB CHEMISTRY METHOD 07/30/2024 12:56 PM [facility] Total Bilirubin 0.4 0.0 - 1.4 mg/dL LAB CHEMISTRY METHOD 07/30/2024 12:56 PM [facility] Bilirubin, Direct 0.2 0.0 - 0.3 mg/dL LAB CHEMISTRY METHOD 07/30/2024 12:56 PM [facility] Bilirubin, Indirect 0.2 0.0 - 1.1 mg/dL LAB CHEMISTRY METHOD 07/30/2024 12:56 PM [facility] ALT (SGPT) 17 10 - 60 unit/L LAB CHEMISTRY METHOD 07/30/2024 12:56 PM [facility] AST (SGOT) 12 10 - 42 unit/L LAB CHEMISTRY METHOD 07/30/2024 12:56 PM [facility] Alkaline Phosphatase 80 42 - 121 unit/L LAB CHEMISTRY METHOD 07/30/2024 12:56 PM [facility] Blood Venous blood specimen / Unknown Venipuncture / Unknown 07/30/2024 11:52 AM EST 07/30/2024 12:28 PM EST us Jonny Mathur MD LAB BLOOD ORDERABLES Final Re sult [facility] [address] [place] [address], [place] [phone] * (ABNORMAL) Heparin and low molecular weight anti Xa level (07/30/2024 6:10 AM EST) Only the most recent of32 resultswithin the time period is included. Pathologist [facility] Heparin Anti-Xa 1.16(H) 0.30 - 0.70 I Unit/mL LAB COAGULATION METHOD 07/30/2024 6:53 AM EST [facility] Blood Venous blood specimen / Unknown Venipuncture / Unknown 07/30/2024 6:10 AM EST 07/30/2024 6:26 AM EST [facility] - 07/30/2024 6:53 AM EST Therapeutic range listed is for Unfractionated Heparin. LMW Heparin therapeutic range: 0.50-1.20 IU/mL Jonny Mathur MD LAB BLOOD ORDERABLES Final Re sult Performing Organization Address [facility] de Phone Number [facility] [address] [place] [address], [place] [phone] * Hepatitis B core antibody IgM (07/28/2024 12:19 PM EST) [facility] Hep B Core IgM Negative Negative LAB CHEMISTRY METHOD 07/28/2024 3:22 PM EST [facility] Blood Venous blood specimen / Unknown Venipuncture / Unknown 07/28/2024 12:19 PM EST 07/28/2024 12:35 PM EST Narrative [facility] - 07/28/2024 3:22 PM EST Over the counter supplements containing high doses of biotin may interfere with this assay. ??If interference is suspected, patients shoud be retested after refraining from biotin supplements for 72 hours. Miguel Quiles MD LAB BLOOD ORDERABLES Final Res ult Performing Organization Address [facility]/ZIP Co de Phone Number [facility] [address] [place] [address], [place] [phone] * Hepatitis B surface antibody (07/28/2024 12:19 PM EST) [facility] Hepatitis B Surface Ab Negative Negative LAB CHEMISTRY METHOD 07/28/2024 1:40 PM EST [facility] Hepatitis B Surface Ab Quantitative <3.1 mIU/mL LAB CHEMISTRY METHOD 07/28/2024 1:40 PM EST [facility] Blood Venous blood specimen / Unknown Venipuncture / Unknown 07/28/2024 12:19 PM EST 07/28/2024 12:35 PM EST Narrative [facility] - 07/28/2024 1:40 PM EST >=10 mIU/mL is considered to be consistent with immunity. Miguel Quiles MD LAB BLOOD ORDERABLES Final Res ult [facility] [address] [place] [address], * Transfuse RBC (07/23/2024 6:19 PM EST) Only the most recent of3 resultswithin the time period is included. Lencho Stuart MD BLOOD TRANSFUSION ORDERABLES Final Result * Insert Midline (07/23/2024 4:52 PM EST) Narrative Maggy Spencer RN - 07/23/2024 4:52 PM EST Maggy Spencer RN ? 07/23/2024 ??5:02 PM Midline Insertion Procedure Note Procedure: Insertion of 18g/10cm [employer] Powerglide midline Lot: [id number] Exp: 2025-05-28 Indications: ??Difficult draw with frequent [...] MD IV THERAPY ORDERABLES Final Result * IR Bx Ndl Renal Perc Left [...] Signed Date: 07/22/2024 17:00 ET Workstation ID: [id number] Transcribed By: Self Edit Transcribed Date: 07/22/2024 [...] of fentanyl administered during the procedure. Scanner: [employer] [address] Dose reduction technique: AEC [...] to the pathology department. Procedure Note Fela aPlomo MD - 07/22/2024 INDICATION: Acute renal failure [...] of fentanyl administered during the procedure. Scanner: [employer] [address] Dose reduction technique: AEC [...] Signed Date: 07/22/2024 17:00 ET Workstation ID: [id number] Transcribed By: Self Edit Transcribed Date: 07/22/2024 16:58 ET Miguel Quiles MD IMG IR PROCEDURES Final Result * (ABNORMAL) Prothrombin time with INR (07/22/2024 11:00 AM EST) Only the most recent of4 resultswithin the time period is included. Pathologist [facility] Protime 16.3(H) 10.6 - 13.9 sec LAB COAGULATION METHOD 07/22/2024 1:11 PM EST [facility] INR 1.3 LAB COAGULATION METHOD 07/22/2024 1:11 PM [facility] Blood Venous blood specimen / Unknown Venipuncture / Unknown 07/22/2024 11:00 AM EST 07/22/2024 11:22 AM EST Lencho Stuart MD LAB BLOOD ORDERABLES Final R esult Performing Organization Address City/[facility]/ZIP Co de Phone Number [facility] [address] [place] [address], * SST tube (07/22/2024 10:53 AM EST) Only the most recent of2 resultswithin the time period is included. [facility] Extra Tube Hold for add-ons. 07/22/2024 1:01 PM EST [facility] Comment:Auto resulted. Blood Venous blood specimen / Unknown 07/22/2024 10:53 AM EST 07/22/2024 11:25 AM EST Lencho Stuart MD LAB BLOOD ORDERABLES Final R esult [facility] [address] [place] [address], [place] [phone] * Lavender tube (07/22/2024 10:53 AM EST) Pathologist [facility] Extra Tube Hold for add-ons. 07/22/2024 1:01 PM EST [facility] Comment:Auto resulted. Blood Venous blood specimen / Unknown 07/22/2024 10:53 AM EST 07/22/2024 11:25 AM EST Lencho Stuart MD LAB BLOOD ORDERABLES Final R esult Performing Organization Address City/[facility]/ZIP Co de Phone Number [facility] [address] [place] [address], [place] [phone] * Activated Partial Thromboplastin Time - STAT (07/20/2024 2:30 PM EST) Only the most recent of3 resultswithin the time period is included. [facility] aPTT 30.0 24.1 - 39.3 sec LAB COAGULATION METHOD 07/20/2024 3:06 PM EST [facility] Blood Venous blood specimen / Unknown Venipuncture / Unknown 07/20/2024 2:30 PM EST 07/20/2024 2:52 PM EST us Lencho Stuart MD LAB BLOOD ORDERABLES Final R esult [facility] [address] [place] [address], [place] [phone] * (ABNORMAL) Microalbumin creatinine urine ratio (07/19/2024 12:01 PM EST) Only the most recent of2 resultswithin the time period is included. [facility] Creatinine, Urine 41.0 mg/dL LAB CHEMISTRY METHOD 07/19/2024 1:46 PM EST [facility] Microalb, Ur 1,480.0(H ) 0.0 - 29.0 mg/L LAB CHEMISTRY METHOD 07/19/2024 1:46 PM EST [facility] Microalb/Crea t Ratio 3,610(H) <30 mg/g creat LAB CHEMISTRY METHOD 07/19/2024 1:46 PM EST [facility] Urine Urine specimen obtained by clean catch procedure / Unknown Non-blood Collection / Unknown 07/19/2024 12:01 PM EST 07/19/2024 12:30 PM EST us Miguel Quiles MD LAB URINE ORDERABLES Final Res ult Performing Organization Address [facility]/ZIP Co de Phone Number [facility] [address] [place] [address], [place] [phone] * Creatinine, urine, random (07/19/2024 12:01 PM EST) Only the most recent of2 resultswithin the time period is included. Creatinine, Urine 41.0 mg/dL LAB CHEMISTRY METHOD 07/19/2024 1:17 PM EST [facility] Urine Urine specimen obtained by clean catch procedure / Unknown Non-blood Collection / Unknown 07/19/2024 12:01 PM EST 07/19/2024 12:30 PM EST us Miguel Quiles MD LAB URINE ORDERABLES Final Res ult Performing Organization Address [facility]/ZIP Co de Phone Number [facility] [address] [place] [address], [place] [phone] * (ABNORMAL) Parathyroid hormone related protein (07/19/2024 7:55 AM EST) PTH-related Protein (PTHrP) 24(H) 11 - 20 pg/mL 07/26/2024 4:[address] [facility] Comment: This is a C-terminal PTH-RP assay. PTH-RP is useful in the differential diagnosis of hypercalcemia and levels may be elevated in patients with tumor-associated hypercalcemia. Elevated results may also be observed in patients with renal disease. This test was developed and its analytical performance characteristics have been determined by [employer]. It has not been cleared or approved by FDA. This assay has been validated pursuant to the CLIA regulations and is used for clinical purposes. Test Performed at: [facility] [address] [place], [place] ??[id number] ? I Bethany GUERRERO, PhD, NINA Blood Venous blood specimen / Unknown Venipuncture / Unknown 07/19/2024 7:55 AM EST 07/19/2024 7:55 AM EST Jesus Manuel HEDRICK LAB BLOOD ORDERABLES Final Resu lt [facility] [place] [address] * (ABNORMAL) Anti-neutrophilic cytoplasmic antibody (07/19/2024 6:52 AM EST) Only the most recent of2 resultswithin the time period is included. Myeloperoxidase Ab Negative Negative LAB CHEMISTRY METHOD 07/20/2024 12:10 PM EST [facility] Myeloperoxidase Ab, Quant 1 <=20 units LAB CHEMISTRY METHOD 07/20/2024 12:10 PM EST [facility] Proteinase-3 Ab Positive(A ) Negative LAB CHEMISTRY METHOD 07/20/2024 12:10 PM EST [facility] Proteinase-3 Ab Quant 165(H) <=20 units LAB CHEMISTRY METHOD 07/20/2024 12:10 PM EST [facility] Blood Venous blood specimen / Unknown Venipuncture / Unknown 07/19/2024 6:52 AM EST 07/19/2024 7:21 AM EST Miguel Quiles MD LAB BLOOD ORDERABLES Final Res ult [facility] [address] [place] [address], * Robertson urine culture tube (07/18/2024 6:10 AM EST) Only the most recent of2 resultswithin the time period is included. Extra Tube Hold for add-ons. 07/18/2024 8:01 AM [facility] Comment:Auto resulted. Urine Urine specimen obtained by clean catch procedure / Unknown 07/18/2024 6:10 AM EST 07/18/2024 6:37 AM EST Lencho Stuart MD LAB URINE ORDERABLES Final R esult [facility] [address] [place] [address], [place] [phone] * (ABNORMAL) Urinalysis microscopic only (07/18/2024 6:09 AM EST) RBC, Urine 10(H) 0 - 4 /HPF 07/18/2024 7:53 AM [facility] WBC, Urine >100(H) 0 - 4 /HPF 07/18/2024 7:53 AM [facility] Squamous Epithelial, Urine 10 0 - 60 /LPF 07/18/2024 7:53 AM [facility] Non-Squamous Epithelial, Urine 2-5 Transitional epithelial cells. /LPF 07/18/2024 7:53 AM [facility] Bacteria, Urine Many(A) Negative /HPF 07/18/2024 7:53 AM [facility] Other Casts, Urine Rare Coarse Granular casts. /LPF 07/18/2024 7:53 AM [facility] Urine Indwelling urinary catheter / Unknown Non-blood Collection / Unknown 07/18/2024 6:09 AM EST 07/18/2024 6:36 AM EST Gian Crum MD LAB URINE ORDERABLES F inal Result Performing Organization Address [facility]/ZIP Co de Phone Number [facility] [address] [place] [address], [place] [phone] * (ABNORMAL) Calcium, ionized (07/18/2024 6:07 AM EST) Only the most recent of2 resultswithin the time period is included. Calcium Ionized 4.28(L) 4.50 - 5.30 mg/dL 07/18/2024 6:46 AM EST [facility] Blood Venous blood specimen / Unknown 07/18/2024 6:07 AM EST 07/18/2024 6:33 AM EST us Gian Crum MD LAB BLOOD ORDERABLES F inal Result Performing Organization Address [facility] Co de Phone Number [facility] [address] [place] [address], [place] [phone] * Vascular US duplex lower extremity venous [...] Signed Date: 07/16/2024 12:33 ET Workstation ID: [id number] Transcribed By: Self Edit Transcribed Date: 07/16/2024 [...] Signed Date: 07/16/2024 12:33 ET Workstation ID: [id number] Transcribed By: Self Edit Transcribed Date: 07/16/2024 12:28 ET Gian Crum MD CV VASCULAR PROCEDURES Final Result * IR Insert Tunneled CVC wo Port or Pump More 5yrs Left (07/15/2024 3:36 PM EST) Anatomical Region Laterality Modality Left Interventional R adiology 07/15/2024 3:45 PM EST Impressions 07/15/2024 3:47 PM EST Successful placement of a 14 Estonian 23 cm dual-lumen cuffed tunneled dialysis catheter with the tip at the cavoatrial junction. This line may be used immediately. -------- FINAL REPORT -------- Dictated By: Fela Palomo Dictated Date: 07/15/2024 15:45 ET Assigned Physician: Fela Palomo Reviewed and Electronically Signed By: Fela Palomo Signed Date: 07/15/2024 15:47 ET Workstation ID: [id number] Transcribed By: Self Edit Transcribed Date: 07/15/2024 [...] The needle was exchanged for the 4 Estonian transition sheath. A 0.035 wire was then advanced through ??the sheath and into the inferior vena cava under fluoroscopy. The sheath was then exchanged for a 7 Estonian vascular dilator. Attention was then turned to the right upper chest and the appropriate area was anesthetized with 2% lidocaine. A small dermatotomy was performed and then a tunnel was created from the dermatotomy to the initial venous access site. The catheter was advanced through the tunnel. ??The initial venous access site was then serially dilated up to a 15 Estonian peel-away sheath. The catheter was then advanced [...] The needle was exchanged for the 4 Estonian transition sheath. A 0.035wire was then advanced through the sheath and into the inferior vena cavaunder fluoroscopy. The sheath was then exchanged for a 7 Estonian vasculardilator. Attention was then turned to the right upper chest and the appropriatearea was anesthetized with 2% lidocaine. A small dermatotomy was performedand then a tunnel was created from the dermatotomy to the initial venousaccess site. The catheter was advanced through the tunnel. The initialvenous access site was then serially dilated up to a 15 Estonian peel-awaysheath. The catheter was then advanced through [...] mGy IMPRESSION: Successful placement of a 14 Estonian 23 cm dual-lumen cuffed tunneleddialysis catheter with the tip at the cavoatrial junction. This line maybe used immediately. -------- FINAL REPORT -------- Dictated By: Fela Palomo Dictated Date: 07/15/2024 15:45 ET Assigned Physician: Fela Palomo Reviewed and Electronically Signed By: Fela Palomo Signed Date: 07/15/2024 15:47 ET Workstation ID: [id number] Transcribed By: Self Edit Transcribed Date: 07/15/2024 15:45 ET Chencho Wayne MD IMG IR PROCEDURES Final Result * (ABNORMAL) Renal function panel (07/15/2024 8:56 AM EST) Sodium 132(L) 133 - 145 mmol/L LAB CHEMISTRY METHOD 07/15/2024 10:26 AM [facility] Potassium 3.8 3.5 - 5.5 mmol/L LAB CHEMISTRY METHOD 07/15/2024 10:26 AM [facility] Chloride 104 96 - 110 mmol/L LAB CHEMISTRY METHOD 07/15/2024 10:26 AM [facility] CO2 16(L) 21 - 32 mmol/L LAB CHEMISTRY METHOD 07/15/2024 10:26 AM [facility] Anion Gap 12(H) 3 - 11 LAB CHEMISTRY METHOD 07/15/2024 10:26 AM [facility] Glucose 80 70 - 100 mg/dL LAB CHEMISTRY METHOD 07/15/2024 10:26 AM [facility] BUN 97(H) 5 - 25 mg/dL LAB CHEMISTRY METHOD 07/15/2024 10:26 AM [facility] Creatinine 6.70(H) 0.50 - 1.10 mg/dL LAB CHEMISTRY METHOD 07/15/2024 10:26 AM [facility] eGFR 6(L) >=60 mL/min/1. 73m2 LAB CHEMISTRY METHOD 07/15/2024 10:26 AM [facility] Comment:Calculation based on the??Chronic Kidney Disease Epidemiology Collaboration (CKD-EPI) equation refit??without adjustment for race. BUN/Creatinine Ratio 14.5 LAB CHEMISTRY METHOD 07/15/2024 10:26 AM EST [facility] Albumin 3.3 3.2 - 5.0 g/dL LAB CHEMISTRY METHOD 07/15/2024 10:26 AM EST [facility] Comment:Results verified by repeat testing Calcium 8.4(L) 8.5 - 10.5 mg/dL LAB CHEMISTRY METHOD 07/15/2024 10:26 AM EST [facility] Phosphorus 4.2 2.5 - 4.5 mg/dL LAB CHEMISTRY METHOD 07/15/2024 10:26 AM [facility] Blood Venous blood specimen / Unknown Venipuncture / Unknown 07/15/2024 8:56 AM EST 07/15/2024 9:43 AM EST Chencho Wayne MD LAB BLOOD ORDERABLES Final Resu lt [facility] [address] [place] [address], * (ABNORMAL) RBC morphology review (07/15/2024 6:56 AM EST) Rbc Morphology Present( A) Consistent with indices, Normal for Palms LAB HEMETOLOGY METHOD 07/15/2024 8:54 AM EST [facility] Platelet Morphology - WAM See Note(A) Normal LAB HEMETOLOGY METHOD 07/15/2024 8:54 AM EST [facility] Comment:PLT: Normal Polychromasia Present Present( A) (none) LAB HEMETOLOGY METHOD 07/15/2024 8:54 AM EST [facility] Pappenheimer Bodies Present Present( A) (none) LAB HEMETOLOGY METHOD 07/15/2024 8:54 AM EST [facility] Schistocytes Present < 5%(A) (none) LAB HEMETOLOGY METHOD 07/15/2024 8:54 AM EST [facility] Blood Venous blood specimen / Unknown Venipuncture / Unknown 07/15/2024 6:56 AM EST 07/15/2024 7:52 AM EST us Gian Crum MD LAB BLOOD ORDERABLES F inal Result Performing Organization Address City/[facility]/ZIP Co de Phone Number [facility] [address] [place] [address], [place] [phone] * Extractable Nuclear Antibodies Profile (07/14/2024 6:00 AM EST) Pathologist [facility] SM Ab Negative Negative LAB CHEMISTRY METHOD 07/17/2024 12:29 PM EST [facility] SM Antibody Quant 2 <20 units LAB CHEMISTRY METHOD 07/17/2024 12:29 PM EST [facility] [employer] Ab Negative Negative LAB CHEMISTRY METHOD 07/17/2024 12:29 PM EST [facility] [employer] Antibody Quant 1 <20 units LAB CHEMISTRY METHOD 07/17/2024 12:29 PM EST [facility] Blood Venous blood specimen / Unknown 07/14/2024 6:00 AM EST 07/14/2024 6:35 AM EST us Gian Crum MD LAB BLOOD ORDERABLES F inal Result [facility] [address] [place] [address], [place] [phone] * (ABNORMAL) C3 complement (07/14/2024 6:00 AM EST) Pathologist [facility] C3 Complement 78(L) 88 - 201 mg/dL LAB CHEMISTRY METHOD 07/14/2024 11:20 AM EST [facility] Blood Venous blood specimen / Unknown 07/14/2024 6:00 AM EST 07/14/2024 6:35 AM EST us Gian Crum MD LAB BLOOD ORDERABLES F inal Result Performing Organization Address City/[facility] Co de Phone Number [facility] [address] [place] [address], [place] [phone] * C4 complement (07/14/2024 6:00 AM EST) [facility] C4 Complement 18 16 - 47 mg/dL LAB CHEMISTRY METHOD 07/14/2024 11:20 AM EST [facility] Blood Venous blood specimen / Unknown 07/14/2024 6:00 AM EST 07/14/2024 6:35 AM EST us Gian Crum MD LAB BLOOD ORDERABLES F inal Result Performing Organization Address [facility] de Phone Number [facility] [address] [place] [address], [place] [phone] * (ABNORMAL) Sedimentation rate (07/13/2024 6:38 AM EST) [facility] Sed Rate 84(H) 0 - 30 mm/hr LAB HEMETOLOGY METHOD 07/13/2024 7:32 AM EST [facility] Blood Venous blood specimen / Unknown Venipuncture / Unknown 07/13/2024 6:38 AM EST 07/13/2024 6:51 AM EST us Gian Crum MD LAB BLOOD ORDERABLES F inal Result Performing Organization Address City/[facility] Co de Phone Number [facility] [address] [place] [address], [place] [phone] * Uric acid (07/13/2024 6:38 AM EST) Only the most recent of2 resultswithin the time period is included. [facility] Uric Acid 7.5 3.1 - 7.8 mg/dL LAB CHEMISTRY METHOD 07/13/2024 7:44 AM EST [facility] Blood Venous blood specimen / Unknown Venipuncture / Unknown 07/13/2024 6:38 AM EST 07/13/2024 6:50 AM EST us Chencho Wayne MD LAB BLOOD ORDERABLES Final Resu lt [facility] [address] [place] [address], [place] [phone] * (ABNORMAL) Protein and creatinine with ratio, urine (07/12/2024 3:27 PM EST) Protein, Urine 192 mg/dL LAB CHEMISTRY METHOD 07/12/2024 6:44 PM EST [facility] Prot/Creat, Ur 3.00(H) <=0.20 mg/mg creat LAB CHEMISTRY METHOD 07/12/2024 6:44 PM EST [facility] Creatinine, Urine 64.0 mg/dL LAB CHEMISTRY METHOD 07/12/2024 6:44 PM EST [facility] Urine Urine specimen obtained by clean catch procedure / Unknown Non-blood Collection / Unknown 07/12/2024 3:27 PM EST 07/12/2024 4:10 PM EST us Chencho Wayne MD LAB URINE ORDERABLES Final Resu lt [facility] [address] [place] [address], [place] [phone] * Sodium, urine, random (07/12/2024 3:27 PM EST) Sodium, Ur 34 mmol/L LAB CHEMISTRY METHOD 07/12/2024 6:44 PM EST [facility] Urine Urine specimen obtained by clean catch procedure / Unknown Non-blood Collection / Unknown 07/12/2024 3:27 PM EST 07/12/2024 4:10 PM EST Aye HEDRICK LAB URINE ORDERABLES Final Re sult Performing Organization Address [facility]/ZIP Co de Phone Number [facility] [address] [place] [address], [place] [phone] * Osmolality, urine (07/12/2024 3:27 PM EST) Osmolality, Urine 397 300 - 1,300 mOsm/kg LAB CHEMISTRY METHOD 07/12/2024 5:57 PM EST [facility] Urine Urine specimen obtained by clean catch procedure / Unknown Non-blood Collection / Unknown 07/12/2024 3:27 PM EST 07/12/2024 4:10 PM EST Aye HEDRICK LAB URINE ORDERABLES Final Re sult Performing Organization Address [facility] Co de Phone Number [facility] [address] [place] [address], [place] [phone] * CT Chest wo Contrast (07/12/2024 12:48 PM EST) Only the most recent of2 resultswithin the time period is included. Anatomical Region Laterality Modality Body Computed Tomogra phy 07/12/2024 1:07 PM EST Impressions 07/12/2024 1:19 PM EST Impression: 1. No significant change in an irregular juxtapleural nodular opacity in the right lung apex. Malignancy is not excluded. 2. No developing lymphadenopathy. 3. Small bilateral pleural effusions, new. Starr HEDRICK ([id number]) -------- FINAL REPORT -------- Dictated By: Edilia Durbin Dictated Date: 07/12/2024 13:07 ET Assigned Physician: Edilia Durbin Reviewed and Electronically Signed By: Edilia Durbin Signed Date: 07/12/2024 13:19 ET Workstation ID: [id number] Transcribed By: Self Edit Transcribed Date: 07/12/2024 13:07 ET Narrative 07/12/2024 1:19 PM EST History: Abnormal chest radiograph. The patient underwent nondiagnostic CT- guided biopsy of the right apical lung nodule on 05/23/24. Comparison: Thoracic CT 06/17/24, 03/21/24 Technique: Helical volumetric imaging of the thorax was performed without IV contrast. DLP: 613.10 mGy/cm GE [email or web address] VCT Iterative reconstruction technique Findings: Respiratory motion [...] performed withoutIV contrast. DLP: 613.10 mGy/cm GE [email or web address] [employer] VCT Iterative reconstruction technique Findings: Respiratory motion [...] Small bilateral pleural effusions, new. Telerad RYLEY ([id number]) -------- FINAL REPORT -------- Dictated By: Edliia Durbin Dictated Date: 07/12/2024 13:07 ET Assigned Physician: Edilia Durbin Reviewed and Electronically Signed By: Edilia Durbin Signed Date: 07/12/2024 13:19 ET Workstation ID: [id number] Transcribed By: Self Edit Transcribed Date: 07/12/2024 13:07 ET Gian Crum MD IMG CT PROCEDURES [place] Result * (ABNORMAL) Procalcitonin (07/12/2024 6:19 AM EST) Procalcitonin 3.11(H) <=0.16 ng/mL LAB CHEMISTRY METHOD 07/12/2024 12:23 PM EST [facility] Blood Venous blood specimen / Unknown Venipuncture / Unknown 07/12/2024 6:19 AM EST 07/12/2024 6:56 AM EST Narrative [facility] - 07/12/2024 12:23 PM EST Procalcitonin [...] any concentrations <2.0 ng/mL are obtained. us Gian Crum MD LAB BLOOD ORDERABLES F inal Result Performing Organization Address City/[facility]/ZIP Co de Phone Number [facility] [address] [place] [address], [place] [phone] * (ABNORMAL) C-reactive protein (07/12/2024 6:19 AM EST) [facility] C-Reactive Protein 16.60(H) <=0.50 mg/dL LAB CHEMISTRY METHOD 07/12/2024 10:35 AM EST [facility] Blood Venous blood specimen / Unknown Venipuncture / Unknown 07/12/2024 6:19 AM EST 07/12/2024 6:56 AM EST us Gian Crum MD LAB BLOOD ORDERABLES F inal Result Performing Organization Address [facility]/ZIP Co de Phone Number [facility] [address] [place] [address], [place] [phone] * (ABNORMAL) Lipase (07/12/2024 6:19 AM EST) Only the most recent of2 resultswithin the time period is included. Lipase <10(L) 13 - 75 unit/L LAB CHEMISTRY METHOD 07/12/2024 3:26 PM EST [facility] Blood Venous blood specimen / Unknown Venipuncture / Unknown 07/12/2024 6:19 AM EST 07/12/2024 6:56 AM EST Gian Crum MD LAB BLOOD ORDERABLES F inal Result Performing Organization Address City/[facility]/ZIP Co de Phone Number [facility] [address] [place] [address], [place] [phone] * Pathologist Review Immunofixation (07/11/2024 6:21 AM EST) Pathologist [facility] Pathologist Interpretation Reviewed by Rosenda Galeana MD 07/13/2024 4:13 PM EST [facility] Blood Venous blood specimen / Unknown Venipuncture / Unknown 07/11/2024 6:21 AM EST 07/11/2024 6:43 AM EST Chencho Wayne MD LAB BLOOD ORDERABLES Final Resu lt Performing Organization Address City/[facility]/ZIP Co de Phone Number [facility] [address] [place] [address], [place] [phone] * Immunofixation electrophoresis serum (07/11/2024 6:21 AM EST) Pathologist [facility] Immunofixation Result, Serum Faint restriction of IgG Zearing, not observed on SPEP . Follow-up in 6 months if clinically indicated. LAB CHEMISTRY METHOD 07/13/2024 4:13 PM EST [facility] Blood Venous blood specimen / Unknown Venipuncture / Unknown 07/11/2024 6:21 AM EST 07/11/2024 6:43 AM EST Chencho Wayne MD LAB BLOOD ORDERABLES Final Resu lt Performing Organization Address City/[facility]/ZIP Co de Phone Number [facility] [address] [place] [address], [place] [phone] * Immunoglobulins IgG, IgA, IgM (07/11/2024 6:21 AM EST) Total IgG 1,090 549 - 1,584 mg/dL LAB CHEMISTRY METHOD 07/11/2024 7:29 AM EST [facility] IgA 172 61 - 348 mg/dL LAB CHEMISTRY METHOD 07/11/2024 7:29 AM EST [facility] IgM 38 23 - 259 mg/dL LAB CHEMISTRY METHOD 07/11/2024 7:29 AM EST [facility] Blood Venous blood specimen / Unknown Venipuncture / Unknown 07/11/2024 6:21 AM EST 07/11/2024 6:42 AM EST Chencho Wayne MD LAB BLOOD ORDERABLES Final Resu lt Performing Organization Address [facility]/ZIP Co de Phone Number [facility] [address] [place] [address], [place] [phone] * (ABNORMAL) Triiodothyronine free (07/10/2024 5:16 AM EST) T3, Free 154(L) 230 - 420 pcg/dL LAB CHEMISTRY METHOD 07/10/2024 2:10 PM EST [facility] Blood Venous blood specimen / Unknown Venipuncture / Unknown 07/10/2024 5:16 AM EST 07/10/2024 6:42 AM EST Maria Alejandra Melendez MD LAB BLOOD ORDERABLES Final Res ult [facility] [address] [place] [address], [place] [phone] * Thyroxine free (07/10/2024 5:16 AM EST) Free T4 0.92 0.70 - 1.80 ng/dL LAB CHEMISTRY METHOD 07/10/2024 2:04 PM EST [facility] Blood Venous blood specimen / Unknown Venipuncture / Unknown 07/10/2024 5:16 AM EST 07/10/2024 6:42 AM EST Maria Alejandra Melendez MD LAB BLOOD ORDERABLES Final Res ult [facility] [address] [place] [address], [place] [phone] * (ABNORMAL) Parathyroid hormone intact (07/10/2024 5:16 AM EST) Only the most recent of2 resultswithin the time period is included. Pathologist [facility] PTH 10.5(L) 18.5 - 88.0 pcg/mL LAB CHEMISTRY METHOD 07/10/2024 1:47 PM EST [facility] Blood Venous blood specimen / Unknown Venipuncture / Unknown 07/10/2024 5:16 AM EST 07/10/2024 6:42 AM EST us Maria Alejandra Melendez MD LAB BLOOD ORDERABLES Final Res ult [facility] [address] [place] [address], [place] [phone] * Creatine kinase (07/09/2024 6:25 AM EST) Total CK 172 22 - 269 unit/L LAB CHEMISTRY METHOD 07/09/2024 8:11 AM EST [facility] Blood Venous blood specimen / Unknown Venipuncture / Unknown 07/09/2024 6:25 AM EST 07/09/2024 7:11 AM EST Aye HEDRICK LAB BLOOD ORDERABLES Final Re sult Performing Organization Address City/[facility]/ZIP Co de Phone Number [facility] [address] [place] [address], [place] [phone] * Green LI heparin tube (07/08/2024 9:50 PM EST) Pathologist [facility] Extra Tube Hold for add-ons. 07/09/2024 12:01 AM EST [facility] Comment:Auto resulted. Blood Venous blood specimen / Unknown 07/08/2024 9:50 PM EST 07/08/2024 10:41 PM EST Wayne Donahue MD LAB BLOOD ORDERABLES Final Re sult Performing Organization Address [facility] Co de Phone Number [facility] [address] [place] [address], [place] [phone] * Culture blood (07/08/2024 9:49 PM EST) Only the most recent of2 resultswithin the time period is included. [facility] Culture, Blood No growth at 5 days 07/13/2024 10:01 PM EST [facility] Blood Venous blood specimen / Unknown Venipuncture / Unknown 07/08/2024 9:49 PM EST 07/08/2024 9:54 PM EST Aye HEDRICK LAB MICROBIOLOGY - GENERAL OR DERABLES Final Result Performing Organization Address City/[facility]/ZIP Co de Phone Number [facility] [address] [place] [address], [place] [phone] * Lactate (07/08/2024 9:42 PM EST) Lactate 1.3 mmol/L 07/08/2024 10:30 PM EST [facility] Blood Venous blood specimen / Unknown Venipuncture / Unknown 07/08/2024 9:42 PM EST 07/08/2024 9:54 PM EST Aye HEDRICK LAB BLOOD ORDERABLES Final Re sult Performing Organization Address City/[facility]/ZIP Co de Phone Number [facility] [address] [place] [address], [place] [phone] * (ABNORMAL) Electrolyte panel (07/08/2024 8:30 PM EST) Only the most recent of2 resultswithin the time period is included. Sodium 130(L) 133 - 145 mmol/L LAB CHEMISTRY METHOD 07/08/2024 11:37 PM [facility] Potassium 4.0 3.5 - 5.5 mmol/L LAB CHEMISTRY METHOD 07/08/2024 11:37 PM EST [facility] Chloride 98 96 - 110 mmol/L LAB CHEMISTRY METHOD 07/08/2024 11:37 PM EST [facility] CO2 22 21 - 32 mmol/L LAB CHEMISTRY METHOD 07/08/2024 11:37 PM [facility] Anion Gap 10 3 - 11 LAB CHEMISTRY METHOD 07/08/2024 11:37 PM EST [facility] Blood Venous blood specimen / Unknown Venipuncture / Unknown 07/08/2024 8:30 PM EST 07/08/2024 8:37 PM EST Aye HEDRICK LAB BLOOD ORDERABLES Final Re sult [facility] [address] [place] [address], [place] [phone] * PATHOLOGIST REVIEW PROTEIN ELECTROPHORESIS (07/08/2024 5:52 PM EST) Pathologist Interpretation Reviewed by Rosenda Galeana MD 07/14/2024 9:21 AM [facility] Blood Venous blood specimen / Unknown Venipuncture / Unknown 07/08/2024 5:52 PM EST 07/08/2024 6:00 PM EST us Aye HEDRICK LAB BLOOD ORDERABLES Final Re sult [facility] [address] [place] [address], [place] [phone] * (ABNORMAL) Protein electrophoresis, serum (07/08/2024 5:52 PM EST) Total Protein 6.4 6.0 - 8.0 g/dL LAB CHEMISTRY METHOD 07/14/2024 9:21 AM [facility] Albumin, Serum 2.2(L) 2.9 - 4.1 g/dL LAB CHEMISTRY METHOD 07/14/2024 9:21 AM [facility] Alpha 1 Globulin (g/dL) 0.6(H) 0.1 - 0.5 g/dL LAB CHEMISTRY METHOD 07/14/2024 9:21 AM [facility] Alpha 2 Globulin (g/dL) 1.2 0.7 - 1.5 g/dL LAB CHEMISTRY METHOD 07/14/2024 9:21 AM [facility] Beta (g/dL) 1.0 0.7 - 1.5 g/dL LAB CHEMISTRY METHOD 07/14/2024 9:21 AM [facility] Gamma Globulin (g/dL) 1.5 0.7 - 1.9 g/dL LAB CHEMISTRY METHOD 07/14/2024 9:21 AM [facility] SPEP Interpretation Hypoalbuminem ia, suggestive of malnutrition, decreased hepatic synthesis or renal/GI loss Elevated alpha-1 fraction, suggestive of acute or or chronic inflammation. LAB CHEMISTRY METHOD 07/14/2024 9:21 AM [facility] Blood Venous blood specimen / Unknown Venipuncture / Unknown 07/08/2024 5:52 PM EST 07/08/2024 6:00 PM EST Aye HEDRICK LAB BLOOD ORDERABLES Final Re sult Performing Organization Address [facility]/ZIP Co de Phone Number [facility] [address] [place] [address], [place] [phone] * Protein, total (07/08/2024 5:52 PM EST) Pathologist [facility] Total Protein 6.4 6.0 - 8.0 g/dL LAB CHEMISTRY METHOD 07/08/2024 6:30 PM EST [facility] Blood Venous blood specimen / Unknown Venipuncture / Unknown 07/08/2024 5:52 PM EST 07/08/2024 6:00 PM EST Aye HEDRICK LAB BLOOD ORDERABLES Final Re sult Performing Organization Address [facility] Co de Phone Number [facility] [address] [place] [address], [place] [phone] * (ABNORMAL) Serum albumin (07/08/2024 5:52 PM EST) [facility] Albumin 2.1(L) 3.2 - 5.0 g/dL LAB CHEMISTRY METHOD 07/08/2024 6:34 PM EST [facility] Blood Venous blood specimen / Unknown Venipuncture / Unknown 07/08/2024 5:52 PM EST 07/08/2024 6:00 PM EST Aye HEDRICK LAB BLOOD ORDERABLES Final Re sult Performing Organization Address City/[facility]/ZIP Co de Phone Number [facility] [address] [place] [address], [place] [phone] * [place] Retroperitoneal Complete (07/08/2024 4:30 PM EST) Anatomical Region Laterality Modality Body Ultrasound 07/10/2024 2:07 PM EST Impressions 07/10/2024 2:08 PM EST Normal appearance of the kidneys. -------- FINAL REPORT -------- Dictated By: Primo Dee Dictated Date: 07/10/2024 14:07 ET Assigned Physician: Primo Dee Reviewed and Electronically Signed By: Primo Dee Signed Date: 07/10/2024 14:08 ET Workstation ID: [id number] Transcribed By: Self Edit Transcribed Date: 07/10/2024 [...] Signed Date: 07/10/2024 14:08 ET Workstation ID: [id number] Transcribed By: Self Edit Transcribed Date: 07/10/2024 14:07 ET us Aye R Thibaud PA IMG US PROCEDURES Final Resul t * Respiratory virus panel molecular study (07/08/2024 2:59 PM EST) Pathologist [facility] Adenovirus Detection by PCR Not Detected Not Detected LAB MICROBIOLOGY METHOD 07/08/2024 4:18 PM EST [facility] Influenza A PCR Not Detected Not Detected LAB MICROBIOLOGY METHOD 07/08/2024 4:18 PM EST [facility] Influenza B PCR Not Detected Not Detected LAB MICROBIOLOGY METHOD 07/08/2024 4:18 PM EST [facility] Coronavirus 229E Not Detected Not Detected LAB MICROBIOLOGY METHOD 07/08/2024 4:18 PM [facility] Coronavirus HKU1 Not Detected Not Detected LAB MICROBIOLOGY METHOD 07/08/2024 4:18 PM [facility] Coronavirus OC43 Not Detected Not Detected LAB MICROBIOLOGY METHOD 07/08/2024 4:18 PM [facility] Coronavirus NL63 Not Detected Not Detected LAB MICROBIOLOGY METHOD 07/08/2024 4:18 PM [facility] Parainfluenza Virus 1 Not Detected Not Detected LAB MICROBIOLOGY METHOD 07/08/2024 4:18 PM [facility] Parainfluenza Virus 2 Not Detected Not Detected LAB MICROBIOLOGY METHOD 07/08/2024 4:18 PM [facility] Parainfluenza Virus 3 Not Detected Not Detected LAB MICROBIOLOGY METHOD 07/08/2024 4:18 PM [facility] Parainfluenza Virus 4 Not Detected Not Detected LAB MICROBIOLOGY METHOD 07/08/2024 4:18 PM [facility] RSV PCR Not Detected Not Detected LAB MICROBIOLOGY METHOD 07/08/2024 4:18 PM [facility] Human Metapneumovirus A and B Not Detected Not Detected LAB MICROBIOLOGY METHOD 07/08/2024 4:18 PM [facility] Rhinovirus/Entero virus Not Detected Not Detected LAB MICROBIOLOGY METHOD 07/08/2024 4:18 PM EST [facility] Bordetella pertussis Not Detected Not Detected LAB MICROBIOLOGY METHOD 07/08/2024 4:18 PM EST [facility] Bordetella parapertussis Not Detected Not Detected LAB MICROBIOLOGY METHOD 07/08/2024 4:18 PM EST [facility] Mycoplasma pneumo by PCR Not Detected Not Detected LAB MICROBIOLOGY METHOD 07/08/2024 4:18 PM EST [facility] Chlamydia pneumoniae Not Detected Not Detected LAB MICROBIOLOGY METHOD 07/08/2024 4:18 PM EST [facility] SARS COV-2 Not Detected Not Detected LAB MICROBIOLOGY METHOD 07/08/2024 4:18 PM EST [facility] Swab Both anterior nares / Unknown Non-blood Collection / Unknown 07/08/2024 2:59 PM EST 07/08/2024 3:15 PM EST [facility] - 07/08/2024 4:18 PM EST Testing was performed using the [employer] Respiratory Pathogen PCR Assay. All results must [...] MICROBIOLOGY - GENERAL OR DERABLES Final Result [facility] [address] [place] [address], * XR Chest 2 Views (07/08/2024 2:01 PM EST) Only the most recent of2 resultswithin the time period is included. Anatomical Region Laterality Modality Body Radiographic Jennifer ging 07/08/2024 2:06 PM EST Impressions 07/08/2024 2:07 PM EST No acute findings. -------- FINAL REPORT -------- Dictated By: Henrique Bray Dictated Date: 07/08/2024 14:06 ET Assigned Physician: Henrique Bray Reviewed and Electronically Signed By: Henrique Bray Signed Date: 07/08/2024 14:07 ET Workstation ID: [id number] Transcribed By: Self Edit Transcribed Date: 07/08/2024 [...] Signed Date: 07/08/2024 14:07 ET Workstation ID: [id number] Transcribed By: Self Edit Transcribed Date: 07/08/2024 14:06 ET us Jj Wolfe MD IMG XR PROCEDURES Final R esult * (ABNORMAL) Troponin I high sensitivity (07/08/2024 1:18 PM EST) Only the most recent of2 resultswithin the time period is included. High Sensitivity Troponin I 81(H) <=54 ng/L LAB CHEMISTRY METHOD 07/08/2024 2:17 PM [facility] Blood Venous blood specimen / Unknown Venipuncture / Unknown 07/08/2024 1:18 PM EST 07/08/2024 1:34 PM EST Narrative [facility] - 07/08/2024 2:17 PM EST High levels of biotin in samples may falsely decrease hsTroponin values. ??Use caution when interpreting hsTroponin results in patients taking biotin who exhibit renal impairment (eGFR <60) or in patients taking more than 20 mg/day of biotin. us Jj Wolfe MD LAB BLOOD ORDERABLES [place] dominguez Result [facility] [address] [place] [address], [place] [phone] * (ABNORMAL) Urinalysis with reflex microscopic and culture (07/08/2024 12:59 PM EST) Specific [place] Urine 1.020 1.003 - 1.030 LAB URINALYSIS - AUTOMATED METHOD 07/08/2024 1:21 PM [facility] pH, Urine 5.5 5.0 - 8.0 pH LAB URINALYSIS - AUTOMATED METHOD 07/08/2024 1:21 PM [facility] Leukocytes, Urine Negative Negative LAB URINALYSIS - AUTOMATED METHOD 07/08/2024 1:21 PM [facility] Nitrite, Urine Negative Negative LAB URINALYSIS - AUTOMATED METHOD 07/08/2024 1:21 PM [facility] Protein, Urine 100(A) <=Trace mg/dL LAB URINALYSIS - AUTOMATED METHOD 07/08/2024 1:21 PM [facility] Glucose, Urine 500(A) Negative mg/dL LAB URINALYSIS - AUTOMATED METHOD 07/08/2024 1:21 PM [facility] Ketones, Urine Negative Negative mg/dL LAB URINALYSIS - AUTOMATED METHOD 07/08/2024 1:21 PM [facility] Urobilinogen, Urine 0.2 0.2 - 1.0 mg/dL LAB URINALYSIS - AUTOMATED METHOD 07/08/2024 1:21 PM [facility] Bilirubin, Urine Negative Negative LAB URINALYSIS - AUTOMATED METHOD 07/08/2024 1:21 PM [facility] Blood, Urine Large(A) Negative LAB URINALYSIS - AUTOMATED METHOD 07/08/2024 1:21 PM [facility] RBC, Urine 21.6(H) 0 - 4 /HPF LAB URINALYSIS - AUTOMATED METHOD 07/08/2024 1:21 PM [facility] WBC, Urine 7.3(H) 0 - 4 /HPF LAB URINALYSIS - AUTOMATED METHOD 07/08/2024 1:21 PM [facility] Squamous Epithelial, Urine 30 0 - 60 /LPF LAB URINALYSIS - AUTOMATED METHOD 07/08/2024 1:21 PM [facility] Bacteria, Urine Negative Negative /HPF LAB URINALYSIS - AUTOMATED METHOD 07/08/2024 1:21 PM [facility] Hyaline Casts, Urine 1.7 0 - 3 /LPF LAB URINALYSIS - AUTOMATED METHOD 07/08/2024 1:21 PM [facility] Urine Urine specimen obtained by clean catch procedure / Unknown Non-blood Collection / Unknown 07/08/2024 12:59 PM EST 07/08/2024 1:11 PM EST us Jj Wolfe MD LAB URINE ORDERABLES [place] dominguez Result [facility] [address] [place] [address], [place] [phone] * Culture urine (07/08/2024 12:59 PM EST) Culture, Urine No growth 07/09/2024 10:44 AM EST [facility] Urine Urine specimen obtained by clean catch procedure / Unknown Non-blood Collection / Unknown 07/08/2024 12:59 PM EST 07/08/2024 1:21 PM EST us Jj Wolfe MD LAB MICROBIOLOGY - GENERA L ORDERABLES Final Result [facility] [address] [place] [address], [place] [phone] * CT Cervical Spine wo Contrast (07/08/2024 12:11 PM EST) Anatomical Region Laterality Modality Spine, C-spine Computed Tomogra phy 07/08/2024 12:2 4 PM EST Impressions 07/08/2024 12:27 PM EST No acute cervical spine fracture. -------- FINAL REPORT -------- Dictated By: ARTEMIO SOLITARIO Dictated Date: 07/08/2024 12:24 ET Assigned Physician: ARTEMIO SOLITARIO Reviewed and Electronically Signed By: ARTEMIO SOLITARIO Signed Date: 07/08/2024 12:27 ET Workstation ID: [id number] Transcribed By: Self Edit Transcribed Date: 07/08/2024 [...] pneumothorax at the lung apices. Procedure Note Artemio Solitario MD - 07/08/2024 PROCEDURE: Cervical spine [...] fracture. -------- FINAL REPORT -------- Dictated By: ARTEMIO SOLITARIO Dictated Date: 07/08/2024 12:24 ET Assigned Physician: ARTEMIO SOLITARIO Reviewed and Electronically Signed By: ARTEMIO SOLITARIO Signed Date: 07/08/2024 12:27 ET Workstation ID: [id number] Transcribed By: Self Edit Transcribed Date: 07/08/2024 12:24 ET Raya HEDRICK IMG CT PROCEDURES [place] l Result * CT Head wo Contrast (07/08/2024 12:11 PM EST) Anatomical Region Laterality Modality Head and Neck Computed Tomogra phy 07/08/2024 12:2 2 PM EST Impressions 07/08/2024 12:23 PM EST NO ACUTE INTRACRANIAL ABNORMALITY. -------- FINAL REPORT -------- Dictated By: ARTEMIO SOLITARIO Dictated Date: 07/08/2024 12:22 ET Assigned Physician: ARTEMIO SOLITARIO Reviewed and Electronically Signed By: ARTEMIO SOLITARIO Signed Date: 07/08/2024 12:23 ET Workstation ID: [id number] Transcribed By: Self Edit Transcribed Date: 07/08/2024 [...] scalp hematoma or skull fracture. Procedure Note Artemio Solitario MD - 07/08/2024 PROCEDURE: HEAD CT [...] ABNORMALITY. -------- FINAL REPORT -------- Dictated By: ARTEMIO SOLITARIO Dictated Date: 07/08/2024 12:22 ET Assigned Physician: ARTEMIO SOLITARIO Reviewed and Electronically Signed By: ARTEMIO SOLITARIO Signed Date: 07/08/2024 12:23 ET Workstation ID: [id number] Transcribed By: Self Edit Transcribed Date: 07/08/2024 12:22 ET Raya HEDRICK IMG CT PROCEDURES [place] l Result * (ABNORMAL) Iron and TIBC (07/08/2024 11:10 AM EST) Only the most recent of2 resultswithin the time period is included. Iron 20(L) 40 - 150 mcg/dL LAB CHEMISTRY METHOD 07/08/2024 3:44 PM EST [facility] Comment:Hemolysis present TIBC 186(L) 250 - 450 mcg/dL LAB CHEMISTRY METHOD 07/08/2024 3:44 PM EST [facility] Iron Saturation 11(L) 15 - 50 % LAB CHEMISTRY METHOD 07/08/2024 3:44 PM [facility] Blood Venous blood specimen / Unknown Venipuncture / Unknown 07/08/2024 11:10 AM EST 07/08/2024 11:42 AM EST us Wayne Donahue MD LAB BLOOD ORDERABLES Final Re sult [facility] [address] [place] [address], [place] [phone] * (ABNORMAL) Reticulocyte count (07/08/2024 11:10 AM EST) Retic Ct Abs 0.050 0.030 - 0.090 M/mcL LAB HEMETOLOGY METHOD 07/08/2024 2:52 PM [facility] Retic Ct Pct 1.4 0.7 - 1.7 % LAB HEMETOLOGY METHOD 07/08/2024 2:52 PM [facility] Immature Retic Fract 24.5(H) 2.3 - 15.9 % LAB HEMETOLOGY METHOD 07/08/2024 2:52 PM [facility] Reticulocyte Hemoglobin 22.5(L) >29.0 pcg LAB HEMETOLOGY METHOD 07/08/2024 2:52 PM [facility] Blood Venous blood specimen / Unknown Venipuncture / Unknown 07/08/2024 11:10 AM EST 07/08/2024 11:42 AM EST us Wayne Donahue MD LAB BLOOD ORDERABLES Final Re sult [facility] [address] [place] [address], [place] [phone] * (ABNORMAL) Thyroid stimulating hormone (07/08/2024 11:10 AM EST) TSH 4.50(H) 0.40 - 4.00 mcIU/mL LAB CHEMISTRY METHOD 07/08/2024 3:31 PM EST [facility] Blood Venous blood specimen / Unknown Venipuncture / Unknown 07/08/2024 11:10 AM EST 07/08/2024 11:42 AM EST us Wayne Donahue MD LAB BLOOD ORDERABLES Final Re sult Performing Organization Address [facility] Co de Phone Number [facility] [address] [place] [address], [place] [phone] * (ABNORMAL) Osmolality (07/08/2024 11:10 AM EST) Pathologist [facility] Osmolality Iván 307(H) 280 - 300 mOsm/kg LAB CHEMISTRY METHOD 07/08/2024 6:51 PM EST [facility] Blood Venous blood specimen / Unknown Venipuncture / Unknown 07/08/2024 11:10 AM EST 07/08/2024 11:42 AM EST us Wayne Donahue MD LAB BLOOD ORDERABLES Final Re sult Performing Organization Address [facility] Co de Phone Number [facility] [address] [place] [address], [place] [phone] * B-type natriuretic peptide (07/08/2024 11:10 AM EST) BNP 86 <=100 pcg/mL LAB CHEMISTRY METHOD 07/08/2024 12:26 PM EST [facility] Blood Venous blood specimen / Unknown Venipuncture / Unknown 07/08/2024 11:10 AM EST 07/08/2024 11:42 AM EST us Jj Wolfe MD LAB BLOOD ORDERABLES [place] l Result Performing Organization Address City/[facility]/ZIP Co de Phone Number [facility] [address] [place] [address], [place] [phone] * (ABNORMAL) Haptoglobin (07/08/2024 11:10 AM EST) Haptoglobin 570(H) 16 - 200 mg/dL LAB CHEMISTRY METHOD 07/08/2024 3:44 PM EST [facility] Blood Venous blood specimen / Unknown Venipuncture / Unknown 07/08/2024 11:10 AM EST 07/08/2024 11:42 AM EST us Wayne Donahue MD LAB BLOOD ORDERABLES Final Re sult Performing Organization Address [facility] Co de Phone Number [facility] [address] [place] [address], [place] [phone] * (ABNORMAL) Folate (07/08/2024 11:10 AM EST) Folate >20.0(H) 2.8 - 17.0 ng/ml LAB CHEMISTRY METHOD 07/08/2024 3:51 PM EST [facility] Blood Venous blood specimen / Unknown Venipuncture / Unknown 07/08/2024 11:10 AM EST 07/08/2024 11:42 AM EST us Wayne Donahue MD LAB BLOOD ORDERABLES Final Re sult Performing Organization Address [facility]/ZIP Co de Phone Number [facility] [address] [place] [address], [place] [phone] * (ABNORMAL) Ferritin (07/08/2024 11:10 AM EST) Only the most recent of2 resultswithin the time period is included. Ferritin 708(H) 8 - 252 ng/mL LAB CHEMISTRY METHOD 07/08/2024 3:51 PM EST [facility] Blood Venous blood specimen / Unknown Venipuncture / Unknown 07/08/2024 11:10 AM EST 07/08/2024 11:42 AM EST us Wayne Donahue MD LAB BLOOD ORDERABLES Final Re sult [facility] [address] [place] [address], [place] [phone] * Vitamin B12 (07/08/2024 11:10 AM EST) Pathologist [facility] Vitamin B-12 384 250 - 900 pcg/mL LAB CHEMISTRY METHOD 07/08/2024 3:51 PM EST [facility] Blood Venous blood specimen / Unknown Venipuncture / Unknown 07/08/2024 11:10 AM EST 07/08/2024 11:42 AM EST us Wayne Donahue MD LAB BLOOD ORDERABLES Final Re sult Performing Organization Address City/[facility]/ZIP Co de Phone Number [facility] [address] [place] [address], [place] [phone] * (ABNORMAL) Creatine kinase and CKMB (07/08/2024 11:10 AM EST) [facility] Total CK 649(H) 22 - 269 unit/L LAB CHEMISTRY METHOD 07/08/2024 3:51 PM EST [facility] Comment:Hemolysis present CK-MB 13.1(H) 1.0 - 3.6 ng/mL LAB CHEMISTRY METHOD 07/08/2024 3:51 PM EST [facility] CK-MB Index 0.0 0.0 - 5.0 LAB CHEMISTRY METHOD 07/08/2024 3:51 PM [facility] Blood Venous blood specimen / Unknown Venipuncture / Unknown 07/08/2024 11:10 AM EST 07/08/2024 11:42 AM EST us Wayne Donahue MD LAB BLOOD ORDERABLES Final Re sult [facility] [address] [place] [address], [place] [phone] * Cortisol (07/08/2024 11:10 AM EST) Cortisol 58.1 mcg/dL LAB CHEMISTRY METHOD 07/08/2024 3:38 PM EST [facility] Blood Venous blood specimen / Unknown Venipuncture / Unknown 07/08/2024 11:10 AM EST 07/08/2024 11:42 AM EST Narrative [facility] - 07/08/2024 3:38 PM EST CORTISOL REFERENCE RANGE ?? 8 AM SPEC: ??5.0-23.0 mcg/dL ?? 4 PM SPEC: ??3.0-16.0 mcg/dL ?? 8 PM SPEC: ??<5.0 mcg/dL us Wayne Donahue MD LAB BLOOD ORDERABLES Final Re sult [facility] [address] [place] [address], [place] [phone] * (ABNORMAL) Comprehensive metabolic panel (07/08/2024 11:10 AM EST) Sodium 126(L) 133 - 145 mmol/L LAB CHEMISTRY METHOD 07/08/2024 12:54 PM EST [facility] Potassium 4.2 3.5 - 5.5 mmol/L LAB CHEMISTRY METHOD 07/08/2024 12:54 PM EST [facility] Comment:Hemolysis present Chloride 93(L) 96 - 110 mmol/L LAB CHEMISTRY METHOD 07/08/2024 12:54 PM EST [facility] CO2 21 21 - 32 mmol/L LAB CHEMISTRY METHOD 07/08/2024 12:54 PM EST [facility] Anion Gap 12(H) 3 - 11 LAB CHEMISTRY METHOD 07/08/2024 12:54 PM [facility] Glucose 265(H) 70 - 100 mg/dL LAB CHEMISTRY METHOD 07/08/2024 12:54 PM [facility] BUN 59(H) 5 - 25 mg/dL LAB CHEMISTRY METHOD 07/08/2024 12:54 PM [facility] Comment:Results verified by repeat testing Creatinine 4.10(H) 0.50 - 1.10 mg/dL LAB CHEMISTRY METHOD 07/08/2024 12:54 PM [facility] Comment:Results verified by repeat testing eGFR 10(L) >=60 mL/min/1. 73m2 LAB CHEMISTRY METHOD 07/08/2024 12:54 PM [facility] Comment:Calculation based on the??Chronic Kidney Disease Epidemiology Collaboration (CKD-EPI) equation refit??without adjustment for race. BUN/Creatinine Ratio 14.4 LAB CHEMISTRY METHOD 07/08/2024 12:54 PM [facility] Calcium 10.6(H) 8.5 - 10.5 mg/dL LAB CHEMISTRY METHOD 07/08/2024 12:54 PM [facility] AST (SGOT) 57(H) 10 - 42 unit/L LAB CHEMISTRY METHOD 07/08/2024 12:54 PM [facility] Comment:Hemolysis present ALT (SGPT) 39 10 - 60 unit/L LAB CHEMISTRY METHOD 07/08/2024 12:54 PM [facility] Alkaline Phosphatase 149(H) 42 - 121 unit/L LAB CHEMISTRY METHOD 07/08/2024 12:54 PM [facility] Total Protein 6.3 6.0 - 8.0 g/dL LAB CHEMISTRY METHOD 07/08/2024 12:54 PM [facility] Albumin 2.1(L) 3.2 - 5.0 g/dL LAB CHEMISTRY METHOD 07/08/2024 12:54 PM [facility] Total Bilirubin 0.4 0.0 - 1.4 mg/dL LAB CHEMISTRY METHOD 07/08/2024 12:54 PM EST [facility] Blood Venous blood specimen / Unknown Venipuncture / Unknown 07/08/2024 11:10 AM EST 07/08/2024 11:42 AM EST Jj Wolfe MD LAB BLOOD ORDERABLES [place] Result [facility]) [facility] [address] [place] [address], [place] [phone] * ECG 12 lead (07/08/2024 10:46 AM EST) Only the most recent of2 resultswithin the time period is included. Ventricular Rate ECG 94 BPM GEMUSE Atrial Rate 94 BPM GEMUSE P-R Interval 196 ms GEMUSE QRS Duration 118 ms GEMUSE Q-T Interval 354 ms GEMUSE QTc 442 ms GEMUSE P Wave [place] 79 degrees GEMUSE R [place] 15 degrees GEMUSE T [place] 4 degrees GEMUSE ECG Interpretation Sinus rhythm [...] us Aye HEDRICK ECG ORDERABLES Final Result Performing Organization Address City/[facility]/ZIP Co de Phone Number GEMUSE * Lipid panel with reflex to direct LDL (05/31/2024 9:22 AM EST) Cholesterol 131 0 - 200 mg/dL LAB CHEMISTRY METHOD 05/31/2024 12:51 PM EST [facility] Triglycerides 113 0 - 150 mg/dL LAB CHEMISTRY METHOD 05/31/2024 12:51 PM [facility] HDL 60 >=40 mg/dL LAB CHEMISTRY METHOD 05/31/2024 12:51 PM [facility] LDL Calculated 48 0 - 100 mg/dL LAB CHEMISTRY METHOD 05/31/2024 12:51 PM [facility] VLDL Cholesterol [place] 22.6 mg/dL LAB CHEMISTRY METHOD 05/31/2024 12:51 PM [facility] Non HDL Chol. (LDL+VLDL) 71 <145 mg/dL LAB CHEMISTRY METHOD 05/31/2024 12:51 PM [facility] Chol/HDL Ratio 2.2 0.0 - 4.4 LAB CHEMISTRY METHOD 05/31/2024 12:51 PM [facility] Blood Venous blood specimen / Unknown Venipuncture / Unknown 05/31/2024 9:22 AM EST 05/31/2024 9:22 AM EST us Kayleigh Pedraza NP LAB BLOOD ORDERABLES Final Resul t [facility] [address] [place] [address], * (ABNORMAL) Hemoglobin A1c (05/31/2024 9:22 AM EST) Hemoglobin A1C 7.2(H) <6.5 % LAB CHEMISTRY METHOD 05/31/2024 12:36 PM EST [facility] Mean Bld Glu Estim. 160 mg/dL LAB CHEMISTRY METHOD 05/31/2024 12:36 PM EST [facility] Blood Venous blood specimen / Unknown Venipuncture / Unknown 05/31/2024 9:22 AM EST 05/31/2024 9:22 AM EST us Kathy HEDRICK LAB BLOOD ORDERABLES Final Resul t [facility] [address] [place] [address], [place] [phone] * IR Bx Lung/Mediastinum Perc Ndl Core w Image Guide (05/23/2024 3:10 PM EST) Anatomical Region Laterality Modality Lung Interventional R adiology 05/23/2024 4:49 PM EST Impressions 05/23/2024 4:[address]-guided core biopsy of right apical pulmonary nodule -------- FINAL REPORT -------- Dictated By: Fela Palomo Dictated Date: 05/23/2024 16:49 ET Assigned Physician: Fela Palomo Reviewed and Electronically Signed By: Fela Palomo Signed Date: 05/23/2024 16:55 ET Workstation ID: [id number] Transcribed By: Self Edit Transcribed Date: 05/23/2024 16:49 ET Narrative 05/23/2024 4:55 PM EST INDICATION: Pulmonary nodules. Right upper lobe nodule demonstrates significant PET activity. PROCEDURE: Written informed consent obtained for CT-guided lung biopsy with chest tube placement if needed. prior relevant studies: PET/CT dated May 03, 2024 Scanner: [employer] speed 16 slice VCT Dose reduction technique: ASIR (Adaptive statistical iterative reconstruction) and/or AEC (automated exposure control) Dose: total exam DLP 407 mGY per cm MEDICATIONS: Local anesthesia: 1% buffered lidocaine administered subcutaneously and down to the pleural surface. Sedation: Moderate intravenous sedation was initiated and maintained for 30 minutes while the patient was independently monitored by the radiology nurse under the supervision of the interventional radiologist. A total of 2 mg of Versed and 50 mcg of fentanyl administered during the procedure. ? TECHNIQUE: Patient placed prone on the interventional CT table and multiple images obtained to localize right upper lobe apical nodule. Appropriate region of the skin was marked, draped and prepped using maximum sterile barrier. Timeout performed. Moderate sedation initiated and local anesthetic administered. Under CT fluoroscopic guidance a 17-gauge coaxial needle was advanced towards the periphery of the localized lesion. Multiple 18-gauge core biopsy samples obtained with samples placed within formalin. Touch prep slides created after the 3rd core biopsy pass. Gelfoam slurry injected upon removal of the coaxial needle. FINDINGS: Imaging obtained during biopsy demonstrate needle position along the posterior edge of the localized apical nodule. Postbiopsy images demonstrate no evidence of pneumothorax. Specimens: Multiple histological slides created with samples placed in formalin as well as CytoLyt. Procedure Note Fela Palomo MD - 05/23/2024 INDICATION: Pulmonary nodules. Right upper lobe nodule demonstratessignificant PET activity. PROCEDURE: Written informed consent obtained for CT-guided lung biopsywith chest tube placement if needed. prior relevant studies: PET/CT dated May 03, 2024 Scanner: [employer] speed 16 slice VCT Dose reduction technique: ASIR (Adaptive statistical iterativereconstruction) and/or AEC (automated exposure control) Dose: total exam DLP 407 mGY per cm MEDICATIONS: Local anesthesia: 1% buffered lidocaine administered subcutaneously anddown to the pleural surface. Sedation: Moderate intravenous sedation was initiated and maintained for30 minutes while the patient was independently monitored by the radiologynurse under the supervision of the interventional radiologist. A total of2 mg of Versed and 50 mcg of fentanyl administered during the procedure. TECHNIQUE: Patient placed prone on the interventional CT table andmultiple images obtained to localize right upper lobe apical nodule.Appropriate region of the skin was marked, draped and prepped usingmaximum sterile barrier. Timeout performed. Moderate sedation initiated and local anesthetic administered. Under CTfluoroscopic guidance a 17-gauge coaxial needle was advanced towards theperiphery of the localized lesion. Multiple 18-gauge core biopsy samplesobtained with samples placed within formalin. Touch prep slides createdafter the 3rd core biopsy pass. Gelfoam slurry injected upon removal of the coaxial needle. FINDINGS: Imaging obtained during biopsy demonstrate needle position alongthe posterior edge of the localized apical nodule. Postbiopsy imagesdemonstrate no evidence of pneumothorax. Specimens: Multiple histological slides created with samples placed informalin as well as CytoLyt. IMPRESSION: CT-guided core biopsy of right apical pulmonary nodule -------- FINAL REPORT -------- Dictated By: Fela Palomo Dictated Date: 05/23/2024 16:49 ET Assigned Physician: Fela Palomo Reviewed and Electronically Signed By: Fela Palomo Signed Date: 05/23/2024 16:55 ET Workstation ID: [id number] Transcribed By: Self Edit Transcribed Date: 05/23/2024 16:49 ET us Jaime Grimaldo MD IMG IR PROCEDURES Final Resu lt * Tissue exam (05/23/2024 2:49 PM EST) Final Diagnosis Lung, right upper lobe, core biopsy: Skeletal muscle and adipose tissue No lung tissue identified 05/24/2024 9:57 AM [facility] Gross Description A. Lung, Right Upper Lobe, : Labeled with the patient's name and information. Received in formalin are three cylindrical pink-white soft tissue cores, ranging from 0.3 x 0.1 cm to 0.6 x 0.1 cm, which are wrapped in paper and submitted in toto in two cassettes, two pieces and one piece, respectively, one H&E and six unstained slides each, conserving tissue. One touch prep is made. ELOISE 05/24/2024 9:57 AM [facility] Intraoperative Consultation A. Lung, Right Upper Lobe, : Touch prep of core biopsy (cytological evaluation): Non-diagnostic smear, blood only Amalia Ambriz MD 05/23/24 15:29 05/24/2024 9:57 AM [facility] Disclaimer Unless otherwise specified, all tissue is 10% NB formalin fixed and paraffin embedded. 05/24/2024 9:57 AM [facility] Tissue Structure of upper lobe of right lung / Unknown 05/23/2024 2:49 PM EST 05/23/2024 3:11 PM EST us Jaime Grimaldo MD LAB PATHOLOGY ORDERABLES Fin al Result [facility] [address] [place] [address], * SALLY DEXA AXIAL SKELETON (04/15/2018 10:29 AM EDT) Anatomical Region Laterality Modality Mammography 04/15/2018 9:39 AM EDT Narrative 04/15/2018 10:29 AM EDT [facility] Diagnostic Imaging Department [address] [place] [id number] Patient: ??CONTRERAS,ANA A ?/Age/Sex: 1945 - 73 - F Unit#: ??[id number] ? Location/Status: ??SPDIMAM/REG CLI ? Mnemonic/Ordering Site: ??[facility]DEX[facility]X/SPMAM Ordering Physician: ??VIVIEN SANTIZO MD [facility] Dexa Axial Skeleton - 04/15/18 - 1004 HISTORY: ??The patient is a 73-year-old postmenopausal female with clinical concern for metabolic bone disease. FINDINGS: ??Dual energy x-ray absorptiometry of the lumbar spine and femurs is performed. The mean bone mineral density at L1-L4 is 1.097 gm/cm2 which is 93% of that of young normals and 102% of that of age matched controls. This yields a T-score of -0.7 and a Z-score of 0.2 and there is therefore no evidence of osteoporosis or osteopenia here. The mean bone mineral density of the femurs bilaterally is 0.854 gm/cm2 which is 85% of that of young normals and 98% of that of age matched controls. ??This yields a T-score of -1.2 and a Z-score of -0.1 which is diagnostic of osteopenia. The T-score of the right femoral neck is -1.6 and that of the left femoral neck is -1.5 which is diagnostic of osteopenia. IMPRESSION: 1. Osteopenia. ??There has been a decrease of 1.8% in bone mineral density in the lumbar spine since the prior examination of 04/03/2016. ??There has been a decrease of 2.6% in bone mineral density in the right femur and a decrease of 1.9% in bone mineral density in the left femur. 2. FRAX analysis yields a 10-year probability of major osteoporotic fracture of 10.7% and a 10-year probability of hip fracture of 2.2%. Code 69837 Dictating Physician: ??JAILYN BARAHONA MD Electronically Signed by: ??JAILYN BARAHONA MD Dic Date/Time: ??04/15/18 1028 Sign date/Time: ??04/15/18 1029 Procedure Note Jailyn Barahona MD - 06/17/2022 [facility] Diagnostic Imaging Department [address] [place] [address] Patient: ANA CONTRERAS D.O.B./Age/Sex: 1945 - 73 - F Unit#: [id number] [facility] Ordering Physician: VIVIEN SANTIZO MD [facility] Dexa Axial Skeleton - 04/15/18 - 1004 HISTORY: The patient is a 73-year-old postmenopausal female withclinical concern for metabolic bone disease. FINDINGS: Dual energy x-ray absorptiometry of the lumbar spine and femursis performed. The mean bone mineral density at L1-L4 is 1.097 gm/cm2 which is93% of that of young normals and 102% of that of age matched controls. Thisyields a T-score of -0.7 and a Z-score of 0.2 and there is therefore no evidenceof osteoporosis or osteopenia here. The mean bone mineral density of the femurs bilaterally is 0.854 gm/ip8kbngw is 85% of that of young normals and 98% of that of age matched controls.This yields a T-score of -1.2 and a Z-score of -0.1 which is diagnostic of osteopenia. The T-score of the right femoral neck is -1.6 and that of theleft femoral neck is -1.5 which is diagnostic of osteopenia. IMPRESSION: 1. Osteopenia. There has been a decrease of 1.8% in bone mineral densityin the lumbar spine since the prior examination of 04/03/2016. There has delphine decrease of 2.6% in bone mineral density in the right femur and a decreaseof 1.9% in bone mineral density in the left femur. 2. FRAX analysis yields a 10-year probability of major osteoporoticfracture of 10.7% and a 10-year probability of hip fracture of 2.2%. 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 Health Care Proxy * Full Code - Confirmed (Latest Code Status on File) Date Activated Date Inactivated Comments 07/08/2024 5:53 PM 08/06/2024 3:09 PM This code sta tus was ascertained in the following way: Code status discussion: discussion with patient and family To update the patient's code status, place a code status order. Do not modify or discontinue any currently active code status orders. * Full Code - Default Date Activated Date Inactivated Comments 07/08/2024 2:44 PM 07/08/2024 5:53 PM This is orde r is used when code status has not been discussed with the patient, or code status is otherwise unknown/unconfirmed To update the patient's code status, place a code status order. Do not modify or discontinue any currently active code status orders. Healthcare Agents on File Name Relationship Healthcare Agent Relationship Communication Paul Contreras Jr. Son First Alternate Health Care Agent Dennise Nj Daughter Second Alternate Health Care Agent Care Teams Through Operator Relationship Specialty Start Date End Date Eloisa Vázquez DO [address] [place] [id number] [facility] - General 04/12/24
--- OUTSIDE RECORDS SUMMARY | 2024-08-08 05:46 | XMS_ITS | Encounter Summary ---
Author Organization [facility] Address [address] [place] [address] Care Team Providers Care Kennel Helper Name Role Phone Eloisa Vázquez DO Primary Care Provider [phone] Reason for Visit * Reason Comments Fall * Auth/Cert Specialty Diagnoses / Procedures Referred By Contac t Referred To Contact Diagnoses Acute encephalopathy Procedures . Wayne Donahue MD [address] [place] [phone] Phone: tel: fax: [facility] Emergency [address] [place] [address] Phone: tel: Referral ID Status Reason Start Date Expiration Date Visits Re quested Visits Authorized [id number] 1 1 Encounter Details Date Type Department Care Team (Late st Contact Info) Description 08/05/2024 11:30 AM EST - 08/05/2024 1:30 PM EST Surgery [facility] Main OR [address] [place] [address] Cecily Montez MD [address] [place] [id number] Navigation bronchoscopy/EBUS [06130 (CPT??) +2 more] Social History Tobacco Use Types Packs/Day Years [...] Sign Reading Time Taken Comments Blood Pressure 132/59 08/05/2024 1:30 PM EST Pulse 80 08/05/2024 1:30 PM EST Temperature 36.2 ??C (97.1 ??F) 08/05/2024 1:10 PM ES T Respiratory Rate 17 08/05/2024 1:30 PM EST Oxygen Saturation 100% 08/05/2024 1:30 PM EST Inhaled Oxygen Concentration - - Weight 71.2 kg (156 lb 14.4 oz) 08/05/2024 6:00 AM EST Height 162.5 cm (5' 3.98 [...] of Assessment Author Yes 07/08/2024 3:24 PM EST Davina Granados RN * Do you have serious difficulty walking or climbing stairs? Answer Date of Assessment Author No 07/08/2024 3:24 PM EST Lillian Granados RN * Do you have serious difficulty [...] Davina Pierre RN documented in this encounter Discharge Summaries * Steve Cruz MD - 08/06/2024 12:54 PM EST Images from the original note were not included. SARATOGA DISCHARGE SUMMARY Patient Information Ana Contreras : [...] and EBUS procedure next week with Dr. Montze, hypertension, hyperlipidemia, CKD, iron deficiency anemia, diabetes mellitus type 2 seen today after wellness check. Patients daughter called and did not get in touch with her mother so she called for a wellness check and the patient was found down on the ground by [facility]. She was unsure the detailsof how [...] will be transferred to the care of [place] staff for further management of their acute encephalopathy, fall. Hospital course Patient is 79 years old female with past medical history significant for type 2 diabetes, hypertension, chronic kidney disease stage IV, iron deficiency anemia, dyslipidemia, lung nodule brought to the [facility] after wellness check was called to police by her daughter. Patient was foundon the ground unable to get up and was confused. Patient admitted to medical floors for further management of chronic kidney disease, metabolic encephalopathy. # Acute on chronic kidney injury, crescentic glomerulonephritis requiring hemodialysis. -Patient is on hemodialysis Thursday. On prednisone, Bactrim every Thursday. Per metal window screen assembler patient's kidney biopsy consistent with crescentic glomerulonephritis. Rituximab given on 07/28/2024. Next dose in 2 weeks. Patient is being followed by metal window screen assembler for hemodia lysis. Upon DC continue oral [...] and placing orders. Follow-Up Instructions and Recommendations lEoisa Vázquez DO [address] [facility] [address] Schedule an appointment as soon as possible for a visit in 3 day(s) for transition of care visit, If symptoms worsen, As needed Chencho Wayne MD [address] [facility] [phone] Schedule an appointment as soon as possible for a visit in 1 week(s) for kidney failure management [address] [place] [address] Discharge Procedure Orders Discharge Diet: Diabetic [...] the original note were not included. SONYA DISCHARGE SUMMARY Patient Information Ana Contreras : 1945 [79 y.o.] Admitting Provider Wayne Donahue MD Discharge Provider Steve Cruz MD, Steve Cruz MD Primary Care Physician Eloisa Vázquez, Admission Date 07/08/2024 Discharge Date 08/05/2024 Summary [...] was found down on the ground by [facility]. She was unsure the detailsof how [...] will be transferred to the care of [place] staff for further management of their acute encephalopathy, fall. Hospital course Patient is 79 years old female with past medical history significant for type 2 diabetes, hypertension, chronic kidney disease stage IV, iron deficiency anemia, dyslipidemia, lung nodule brought to the [facility] after wellness check was called to police by her daughter. Patient was foundon the ground unable to get up and was confused. Patient admitted to medical floors for further management of chronic kidney disease, metabolic encephalopathy. # Acute on chronic kidney injury, crescentic glomerulonephritis requiring hemodialysis. -Patient is on hemodialysis Thursday. On prednisone, Bactrim every Thursday. Per metal window screen assembler patient's kidney biopsy consistent with crescentic glomerulonephritis. Rituximab given on 07/28/2024. Next dose in 2 weeks. Patient is being followed by metal window screen assembler for hemodia lysis. Upon DC continue oral [...] Recommendations Eloisa Vázquez DO [address] [facility] [address] Schedule an appointment as soon as possible for a visit in 3 day(s) for transition of care visit, If symptoms worsen, As needed Chencho Wayne MD [address] [facility] [address] Schedule an appointment as soon as possible for a visit in 1 week(s) for kidney failure management [address] [address] Discharge Procedure Orders Discharge Diet: Diabetic 2000 Calorie Diet, Renal Diet; Fiber, fruits and [...] through Care Everywhere. * Diabetes: Renal Diet (Cameroonian) documented in this encounter Medications at Time [...] 2 (two) times a day. 08/06/2024 5 documented in this encounter Discharge Disposition Disposition Code Departure Means Destination Comment s [facility] documented in this encounter Progress Notes * Jacquelin Davidson RN - 08/06/2024 1:04 PM EST Report given to ems, to transport to [facility]. * Jacquelin Davidson RN - 08/06/2024 9:47 AM EST Goals: Identify possible barriers to meeting goals/advancing plan of care: Stability of the patient: Moderately Stable - Low risk of patient condition declining or worsening End of Shift Summary: D/c today [facility] @ 1pm * Tarsha Corea RN - 08/06/2024 7:23 AM EST 08/06/24 0722 Initial Transition Plan Initial Transition Plan [facility] ([facility] Transportation Transportation at discharge [facility] providing transportation Caroleen What day is the transport expected? 02/08/25 What time is the transport expected? 1300 Final Discharge Disposition [facility] * Katina Machuca RN - 08/06/2024 [...] was found down on the ground by [facility]. She was unsure the detailsof how [...] red blood cells. Patient will be transferred tothe care of [place] staff for further management of their acute encephalopathy, fall. Hospital course Patient is 79 years old female with past medical history significant for type 2 diabetes, hypertension, chronic kidney disease stage IV, iron deficiency anemia, dyslipidemia, lung nodule brought to the [facility] after wellness check was called to police by her daughter. Patient was foundon the ground unable to get up and was confused. Patient admitted to medical floors for further management of chronic kidney disease, metabolic encephalopathy. # Acute on chronic kidney injury, crescentic glomerulonephritis requiring hemodialysis. -Patient is on hemodialysis Thursday. On prednisone, Bactrim every Thursday. Per metal window screen assembler patient's kidney biopsy consistent with crescentic glomerulonephritis. Rituximab given on 07/28/2024. Next dose in 2 weeks. Patient is being followed by metal window screen assembler for hemodia lysis. Upon DC continue oral [...] 1337 Initial Transition Plan Initial Transition Plan [facility] ([facility]) Transportation Transportation at discharge [facility] providing transportation [place] What day is the transport expected? 08/05/24 [...] Ordered 08/05/24 0001 Adult NPO diet Location: [facility]; Diet: NPO- Except for Medications Diet effective midnight Question Answer Comment Location [facility] Diet NPO- Except for Medications 08/04/24 0838 07/11/24 1133 Dietary nutrition supplements Two times daily (BID); [facility]; Diabetic Supplement Continuous Question Answer Comment Frequency Two times daily (BID) Location [facility] Supplements Diabetic Supplement 07/11/24 1132 History of [...] or fat depletion Skin: Skin intact per pegger Nutrition Diagnosis: Code Type: None Identified Status: [...] weeks and will be tapered by the metal window screen assembler Continue PPI in the outpatient setting if patient is on prednisone Continue Bactrim DS in the outpatient setting thrice weekly (-) as patient is immunosuppressed Lung mass biopsy with Dr. Montez today s/p transfusion yesterday Outpatient HD arranged at [facility] -- 1st shift [phone] on hold since July 21. I have given orders for the patient to start on Thursday Patient for discharge to [facility] Discussed with medical team. Patient to get transfused today From renal standpoint patient can be discharged today or on Thursday The outpatient facility needs to arrange for rituximab infusion on August 11 or at [facility] outpatient infusion-they can touch base with the renal MD covering for Jolene for that shift for orders and dosage Discussed with the medical team/outpatient dialysis nursing staff and telephonic case manager history Chencho Wayne MD * Prisca Goldman [...] a 79 y.o. female : 1945 MR#: [id number] SUBJECTIVE Subjective Patient seen by the bedside [...] of fentanyl administered during the procedure. Scanner: [place] [address] Dose reduction technique: AEC [...] Signed Date: 07/22/2024 17:00 ET Workstation ID: [id number] Transcribed By: Self Edit Transcribed Date: 07/22/2024 16:58 ET ASSESSMENT & PLAN Patient is 79 years old female with past medical history significant for type 2 diabetes, hypertension, chronic kidney disease stage IV, iron deficiency anemia, dyslipidemia, lung nodule brought to the [facility] after wellness check was called to police by her daughter. Patient was foundon the ground unable to get up and was confused. Patient admitted to medical floors for further management of chronic kidney disease, metabolic encephalopathy. # Acute on chronic kidney injury, crescentic glomerulonephritis requiring hemodialysis. -Patient is on hemodialysis Thursday. On prednisone, Bactrim every Thursday. Per metal window screen assembler patient's kidney biopsy consistent with crescentic glomerulonephritis. Rituximab given on 07/28/2024. Next dose in 2 weeks. Patient is being followed by metal window screen assembler for hemodia lysis. # Right upper lobe [...] weeks and will be tapered by the metal window screen assembler Continue PPI in the outpatient setting if patient is on prednisone Continue Bactrim DS in the outpatient setting thrice weekly (--) as patient is immunosuppressed Lung mass biopsy with Dr. Montez tomorrow Renal diet Outpatient HD arranged at [facility] m-w-f 1st shift [phone] on hold since July 21. I have given orders for the patient to start on Thursday Patient for discharge to [facility] Discussed with medical team. Patient to get transfused today Will follow [facility] team From renal standpoint patient can be discharged tomorrow or on Thursday The outpatient facility needs to arrange for rituximab infusion on August 11 or at [facility] outpatient infusion-they can touch base with the renal MD covering for Jolene for that shift for orders and dosage Discussed with the medical team/outpatient dialysis nursing staff and telephonic case manager Chencho Wayne MD * Isdira Ruedamarj - 08/04/2024 9:38 AM EST [facility] Physical Therapy Treatment PT Discharge Recommendations: Inpatient rehab facility placement, [facility] facility placement Equipment Recommended: rolling walker Staff Recommendations for safe patient handling: min/modA transfers/bed mob Precautions Medical Precautions: Fall Risk Safety Interventions: Call chavarria within reach, ID band on, Bed alarm RUE Weight Bearing Status: Full LUE Weight Bearing Status: Full RLE Weight Bearing Status: Full LLE Weight Bearing Status: Full History of Present Illness: Patient is a 79 y.o. female admitted to [facility] on 07/08/2024 with: Patient Active Problem List Diagnosis Hypertension Hyperlipidemia History of cancer of unknown primary site CKD (chronic kidney disease) stage 4, GFR 15-29 ml/min ([facility]) Iron deficiency anemia Impaired renal function Type 2 diabetes mellitus without complication, without long-term current use of insulin ([facility]) Lung mass Pulmonary nodule Fall prevention [...] week PT Discharge Recommendations Inpatient rehab facility placement;[facility] facility placement Equipment Recommended rolling walker PT [...] PT Discharge Recommendations: Inpatient rehab facility placement, [facility] facility placement Equipment Recommended: rolling walker Barriers [...] RN - 08/04/2024 9:17 AM EST This financial writer received a call from Beth at [facility] where they have had a dialysis STR bed open and are accepting and going for insurance auth. ICC notified provider and will follow for transfer once insurance auth obtained. * Nelli Schmidt OT - 08/04/2024 8:30 AM EST [facility] Occupational Therapy Treatment Note DATE: July TIME IN: 0830 TIME OUT: 0900 Pt: Ana Contreras 561/561-2 DISCHARGE RECS: Inpatient rehab facility placement, [facility] facility placement EQUIPMENT RECS: Walker-rolling SAFE PT [...] Complete OT Discharge Recommendations Inpatient rehab facility placement;[facility] facility placement Equipment Recommended Walker-rolling ADDITIONAL COMMENTS: [...] up Transition Plan Back up Transition plan [facility] Anticipated Discharge Needs Discipline following for SNF placement Geriatric Nursing Assistant DANITZA: 08/06 Barriers: Accepting SNF w HD, Bronch w lung mass bx re-scheduled 08/05, ability to stand/pivot for family to transport to HD. Plan: ACR vs SNF pending accepting facility with HD and or ability to transport to [facility]. [facility] can only continue to hold OPT HD slot until 08/05. [facility] s/w family and updated on MARYSE options. Bill [facility] Geriatric Nursing Assistant, , called [facility] and will attempt to assist with MARYSE [...] a 79 y.o. female : 1945 MR#: [id number] SUBJECTIVE Subjective Patient seen by the bedside [...] of fentanyl administered during the procedure. Scanner: [place] [address] Dose reduction technique: AEC [...] Signed Date: 07/22/2024 17:00 ET Workstation ID: [id number] Transcribed By: Self Edit Transcribed Date: 07/22/2024 16:58 ET ASSESSMENT & PLAN Patient is 79 years old female with past medical history significant for type 2 diabetes, hypertension, chronic kidney disease stage IV, iron deficiency anemia, dyslipidemia, lung nodule brought to the [facility] after wellness check was called to police by her daughter. Patient was foundon the ground unable to get up and was confused. Patient admitted to medical floors for further management of chronic kidney disease, metabolic encephalopathy. # Acute on chronic kidney injury, crescentic glomerulonephritis requiring hemodialysis. -Patient is on hemodialysis Thursday. On prednisone, Bactrim every Thursday. Per metal window screen assembler patient's kidney biopsy consistent with crescentic glomerulonephritis. Rituximab given on 07/28/2024. Next dose in 2 weeks. Patient is being followed by metal window screen assembler for hemodia lysis. # Right upper lobe [...] Montez Renal diet Outpatient HD arranged at [facility] - 1st shift [phone] on hold since July 21. We need to know before Thursday if he can give away the chair and patient disposition Consider [facility] or [facility] if going to SNF Discussed with medical team. Patient to get transfused today Will follow [facility] w team If patient discharged before August [...] Isidra Florence - 08/02/2024 2:31 PM EST [facility] Physical Therapy Treatment PT Discharge Recommendations: Inpatient rehab facility placement, [facility] facility placement Equipment Recommended: rolling walker Staff [...] is a 79 y.o. female admitted to [facility] on 07/08/2024 with: Patient Active Problem List Diagnosis Hypertension Hyperlipidemia History of cancer of unknown primary site CKD (chronic kidney disease) stage 4, GFR 15-29 ml/min ([facility]) Iron deficiency anemia Impaired renal function Type 2 diabetes mellitus without complication, without long-term current use of insulin ([facility]) Lung mass Pulmonary nodule Fall prevention education [...] week PT Discharge Recommendations Inpatient rehab facility placement;[facility] facility placement Equipment Recommended rolling walker PT [...] PT Discharge Recommendations: Inpatient rehab facility placement, [facility] facility placement Equipment Recommended: rolling walker Barriers [...] comments found. Isidra Florence Cosigned by Kayla Amado PT at 08/02/2024 2:58 PM EST Associated attestation - Kayla Amado, PT - 08/02/2024 2:58 PM EST PT was integrally and physically involved in the decision making, delivery of interventions and ongoing assessment during the patient's care session . * Alexia Rainey RN - 08/02/2024 2:26 PM EST ICC expanded search for Short term rehab facility that does inpatient dialysis * Steve Cruz MD - 08/02/2024 2:09 PM EST Images from the original note were not included. SONYA PROGRESS NOTE Date: 08/02/2024 Author: Steve Cruz MD Patient ID: Ana Contreras is a 79 y.o. female : 1945 MR#: [id number] SUBJECTIVE Subjective Patient seen by the bedside [...] Position: Lying Pulse: 81 88 88 Resp: Temp: 36.4 ??C (97.6 ??F) 36.5 ??C [...] of fentanyl administered during the procedure. Scanner: [place] [address] Dose reduction technique: AEC [...] Signed Date: 07/22/2024 17:00 ET Workstation ID: [id number] Transcribed By: Self Edit Transcribed Date: 07/22/2024 16:58 ET ASSESSMENT & PLAN Patient is 79 years old female with past medical history significant for type 2 diabetes, hypertension, chronic kidney disease stage IV, iron deficiency anemia, dyslipidemia, lung nodule brought to the [facility] after wellness check was called to police by her daughter. Patient was foundon the ground unable to get up and was confused. Patient admitted to medical floors for further management of chronic kidney disease, metabolic encephalopathy. # Acute on chronic kidney injury, crescentic glomerulonephritis requiring hemodialysis. -Patient is on hemodialysis Thursday. On prednisone, Bactrim every Thursday. Per metal window screen assembler patient's kidney biopsy consistent with crescentic glomerulonephritis. Rituximab given on 07/28/2024. Next dose in 2 weeks. Patient is being followed by metal window screen assembler for hemodia lysis. # Right upper lobe [...] Schmidt OT - 08/02/2024 1:35 PM EST [facility] Occupational Therapy Treatment Note DATE: Friday August 02, 2024 TIME IN: 1335 TIME OUT: 1405 Pt: Ana Contreras 561/561-2 DISCHARGE RECS: Inpatient rehab facility placement, [facility] facility placement EQUIPMENT RECS: Walker-rolling SAFE PT [...] Complete OT Discharge Recommendations Inpatient rehab facility placement;[facility] facility placement Equipment Recommended Walker-rolling ADDITIONAL COMMENTS: [...] Montez Renal diet Outpatient HD arranged at [facility] -- 1st shift [phone]) Consider [facility] or [facility] if going to SNF Discussed with medical team. Patient to get transfused today Will follow [facility] w team Chencho Wayne MD * Katina Machuca [...] Post HD. Pt completed 3hr tx (Per MD guillen for 3hr tx). 2L removed. BFR 400. [...] Montez Renal diet Outpatient HD arranged at [facility] m-w-f 1st shift [phone]) Consider [facility] or [facility] if going to [facility] Will follow [facility] w team Anthony Norton MD * Steve Cruz MD - 08/01/2024 4:42 PM EST Images from the original note were not included. SONYA PROGRESS NOTE Date: 08/01/2024 Author: Steve Cruz MD Patient ID: Ana Contreras is a 79 y.o. female : 1945 MR#: [id number] SUBJECTIVE Subjective Patient seen by the bedside [...] of fentanyl administered during the procedure. Scanner: [place] [address] Dose reduction technique: AEC [...] Signed Date: 07/22/2024 17:00 ET Workstation ID: [id number] Transcribed By: Self Edit Transcribed Date: 07/22/2024 16:58 ET ASSESSMENT & PLAN Patient is 79 years old female with past medical history significant for type 2 diabetes, hypertension, chronic kidney disease stage IV, iron deficiency anemia, dyslipidemia, lung nodule brought to the [facility] after wellness check was called to police by her daughter. Patient was foundon the ground unable to get up and was confused. Patient admitted to medical floors for further management of chronic kidney disease, metabolic encephalopathy. # Acute on chronic kidney injury, crescentic glomerulonephritis requiring hemodialysis. -Patient is on hemodialysis Thursday. On prednisone, Bactrim every Thursday. Per metal window screen assembler patient's kidney biopsy consistent with crescentic glomerulonephritis. Rituximab given on 07/28/2024. Next dose in 2 weeks. Patient is being followed by metal window screen assembler for hemodia lysis. # Right upper lobe [...] Camara, PT - 08/01/2024 11:00 AM EST [place], [place] Acute Care PT TREATMENT 08/01/2024 Patient Information Ana Contreras 1945 79 y.o. Ambulation: Walking Assistance: Minimum assistance Device: Rolling walker Distance Ambulated (ft): (5 steps to transfer bed to commode + 3 to 4 steps forward and 3 to 4 steps back with RW) PLOF: Level of [place]: Independent with mobility and functional transfers Lives [...] Documentation Home Exercise Program, taught by Florecita Camara PT at 08/01/2024 [...] Schmidt OT - 08/01/2024 10:50 AM EST [facility] Occupational Therapy Treatment Note DATE: Thursday August 01, 2024 TIME IN: 1050 TIME OUT: 1125 Pt: Ana Contreras 561/561-2 DISCHARGE RECS: [facility] facility placement, Inpatient rehab facility placement EQUIPMENT [...] - Evaluation Status Complete OT Discharge Recommendations [facility] facility placement;Inpatient rehab facility placement Equipment Recommended [...] onward) Start Ordered 07/27/24 1332 Adult diet [facility]; General; Renal- Chronic Kidney Disease; Self-Select Meals Diet effective now Question Answer Comment Location [facility] Diet Type (req) General General Diet Renal- Chronic Kidney Disease Is the patient able to participate in meal ordering? Self-Select Meals 07/27/24 1332 07/11/24 1133 Dietary nutrition supplements Two times daily (BID); [facility]; Diabetic Supplement Continuous Question Answer Comment Frequency Two times daily (BID) Location [facility] Supplements Diabetic Supplement 07/11/24 1132 History of [...] at home. No noted food allergies. Appetite AGRICULTURAL EXTENSION EDUCATOR: Poor Intake AGRICULTURAL EXTENSION EDUCATOR: Decreased Weight History: Wt Readings from Last [...] reports improved PO intake since last visit. LEAFLET OR NEWSPAPER DELIVERER at bedside who confirmed she has been [...] or fat depletion Skin: Skin intact per pegger Nutrition Diagnosis: Code Type: None Identified Status: [...] completion of daily activities 08/01/2024320 by Katina M, RN Outcome: Not Progressing 08/01/2024 025 by Katina Altamirano RN Outcome: Not Progressing Goal: Patient will tolerate standing 08/01/2024 032 by Katina Altamirano RN Outcome: Not Progressing 08/01/2024252 by Katina Altamirano RN Outcome: Not Progressing Goal: Maintains dynamic standing balance with upper extremity support 08/01/2024 032 by Katina Altamirano RN Outcome: Not Progressing 08/01/2024252 by Katina Altamirano RN Outcome: Not Progressing Goal: Maintains dynamic standing balance without upper extremity support 08/01/2024 032 by Katina Altamirano RN Outcome: Not Progressing 08/01/2024252 by Katina Altamirano RN Outcome: Not Progressing Goal: Maintains static standing balance with upper extremity support 08/01/2024 032 by Katina Altamirano RN Outcome: Not Progressing 08/01/2024252 by Katina Altamirano RN Outcome: Not Progressing Goal: Maintains static standing balance without upper extremity support 08/01/2024 032 [...] down a curb/step with the appropriate device 08/01/2024 032 by Katina Altamirano RN Outcome: Not Progressing 08/01/2024252 by Katian Altamirano RN Outcome: Not Progressing Goal: Patient [...] ambulate community distance 08/01/2024 032 by Katina Altamirano, RN Outcome: Not Progressing 08/01/2024252 by Katina Altamirano RN Outcome: Not Progressing Goal: Patient will propel wheelchair household distances 08/01/2024 032 by Katina Altamirano RN Outcome: Not Progressing 08/01/2024252 by Katina Altamirano RN Outcome: Not Progressing Goal: Patient will ambulate household distance 08/01/2024 032 by Katina Altamirano, RN Outcome: Not Progressing 08/01/2024252 by Katina Altamirano RN Outcome: Not Progressing Goal: Patient will navigate 4-6 steps with rails/device 08/01/2024320 by Katina Altamirano, RN Outcome: Not Progressing 08/01/2024252 by Katina Altamirano RN Outcome: Not Progressing Goal: Patient will demonstrate safe mobility requirements 08/01/2024 032 by Katina Altamirano, RN Outcome: Not Progressing 08/01/2024252 by Katina Altamirano RN Outcome: Not Progressing Goal: Patient will propel the wheelchair 08/01/2024320 by Katina Altamirano RN Outcome: Not Progressing 08/01/2024252 by Katina Altamirano, RN Outcome: Not Progressing Goal: Patient will ambulate 08/01/2024320 by Katina Altamirano, RN Outcome: Not Progressing 08/01/2024252 by Katina Altamirano RN Outcome: Not Progressing Goal: Patient will ambulate up and down a curb/step 08/01/2024320 by Katina Altamirano, RN Outcome: Not Progressing 08/01/2024252 by Katina Altamirano RN Outcome: Not Progressing Goal: Patient will ascend and descend four to six stairs 08/01/2024320 by Katina Altamirano RN Outcome: Not Progressing 08/01/2024252 by Katina Altamirano RN Outcome: Not Progressing Goal: Patient will ascend and descend a flight of stairs 08/01/2024320 by Katina Altamirano RN Outcome: Not Progressing 08/01/2024252 by Katina Altamirano RN Outcome: Not Progressing Problem: Safety Goal: Patient will adhere to precautions during ADL's and transfers 08/01/2024320 by Katina Altamirano RN Outcome: [...] Patient will transfer to car 08/01/2024320 by Katina Altamirano, RN Outcome: Not [...] Progressing Goal: Patient will transfer to commode 08/01/2024 032 by Katina Altamirano RN Outcome: Not Progressing 08/01/2024252 by Katina Altamirano RN Outcome: Not Progressing Goal: Patient will transfer to tub/shower 08/01/2024 032 by Katina Altamirano RN Outcome: Not Progressing 08/01/2024252 by Katina Altamirano RN Outcome: Not Progressing Goal: Patient will transfer from wheelchair to toilet 08/01/2024 032 by Katina Altamirano RN Outcome: Not Progressing 08/01/2024252 by Katina Altamirano RN Outcome: Not Progressing Goal: Transfer from bed to chair. 08/01/2024320 by Katina Altamirano RN Outcome: Not Progressing 08/01/2024252 by Katina Altamirano RN Outcome: Not Progressing Goal: Patient to transfer to and from sit to supine 08/01/2024 032 by Katina Altamirano RN Outcome: Not Progressing 08/01/2024252 by Katina Altamirano RN Outcome: Not Progressing Goal: Patient will perform bed mobility 08/01/2024320 by Katina Altamirano RN Outcome: Not Progressing 08/01/2024252 by Katina Altamirano RN Outcome: Not Progressing Goal: Patient will roll 08/01/2024320 by Katina Altamirano, RN Outcome: Not Progressing 08/01/2024252 by Katina Altamirano RN Outcome: Not Progressing Goal: Patient will transfer sit to and from stand 08/01/2024 032 by Katina Altamirano, RN Outcome: Not Progressing 08/01/2024 025 by Katina Altamirano RN Outcome: Not Progressing Goal: Patient will perform car transfer 08/01/2024 032 by Katina Altamirano, RN Outcome: Not Progressing 08/01/2024252 by Katina Altamirano, RN Outcome: Not Progressing Goal: Patient will perform toilet transfer 08/01/2024320 by Katina Altamirano, RN Outcome: Not Progressing 08/01/2024252 by Katina Altamirano RN Outcome: Not Progressing Goal: Patient will perform tub/shower transfer 08/01/2024 032 by Katina Altamirano, RN Outcome: Not Progressing 08/01/2024252 by Katina M, RN Outcome: Not Progressing Goal: Patient will follow hip precautions during transfers 08/01/2024320 by Katina Altamirano RN Outcome: Not Progressing 08/01/2024252 by Katina Altamirano RN Outcome: Not Progressing Goal: Patient maintains weight bearing status during transfers 08/01/2024320 by Katina Altamirano RN Outcome: Not Progressing 08/01/2024252 by Katina Altamirano RN Outcome: Not Progressing Problem: Pain Goal: Patient will manage pain with the appropriate technique/Intervention 08/01/2024320 by Katina Altamirano RN Outcome: Progressing 08/01/2024252 by Katina Altamirano RN Outcome: Not Progressing Goal: Patient will demonstrate intervention for managing pain 08/01/2024320 by Katina Altamirano RN Outcome: Progressing 08/01/2024252 by Katina Altamirano RN Outcome: Not Progressing Goal: Patient will reduce or eliminate use of analgesics 08/01/2024320 by Katina Altamirano RN Outcome: Progressing [...] active participation in daily activities 08/01/2024320 by Katina Altamirano RN Outcome: Progressing [...] Altamirano RN Outcome: Progressing 08/01/2024252 by Katina M, RN Outcome: Not Progressing Goal: Patient will [...] demonstrates skin care/treatment/dressing change 08/01/2024320 by Katina lAtamirano RN Outcome: Progressing 08/01/2024252 by Katina Altamirano [...] a 79 y.o. female : 1945 MR#: [id number] SUBJECTIVE Follow up:metabolic encephalopathy, renal failure requiring [...] of fentanyl administered during the procedure. Scanner: [place] [address] Dose reduction technique: AEC [...] Signed Date: 07/22/2024 17:00 ET Workstation ID: [id number] Transcribed By: Self Edit Transcribed Date: 07/22/2024 16:58 ET ASSESSMENT & PLAN Patient is an 79 woman with HTN, DM2, CKD 4, iron deficiency anemia, hyperlipidemia, and recent diagnosis of lung nodule with planned bronchoscopy and EBUS , she was brought to the [facility] ER on 07/08 after wellness [...] tomorrow Patient will need SNF with hemodialysis capability([facility]). [facility] already aware and referrals placed. * Katina [...] lb) Wt Readings from Last 3 Encounters: 07/30/24 73.6 kg (162 lb 3.2 oz) 06/17/24 [...] started 07/24) PPI Bactrim DS thrice weekly (M-W-F) Lung mass biopsy with Dr. Montez Renal diet Outpatient HD arranged at [facility] -- 1st shift [phone]) Consider [facility] or [facility] if going to [facility] Mindy Katz MD Cosigned by Miguel Quiles MD at 08/02/2024 2:08 PM EST * Jonny Mathur MD - 07/30/2024 12:28 PM EST Images from the original note were not included. SARATOGA PROGRESS NOTE Date: 07/30/2024 Author: Jonny Mathur MD Patient ID: Ana Contreras is a 79 y.o. female : 1945 MR#: [id number] SUBJECTIVE Follow up:metabolic encephalopathy, renal failure w/renal [...] chloride, sodium chloride, sodium chloride OBJECTIVE Vitals: 07/29/24201307/30/24 0317 07/30/24 0500 07/30/24 0813 BP: (!) [...] of fentanyl administered during the procedure. Scanner: [place] [address] Dose reduction technique: AEC [...] Signed Date: 07/22/2024 17:00 ET Workstation ID: [id number] Transcribed By: Self Edit Transcribed Date: 07/22/2024 [...] consideration for doing aforementioned procedure. I was l ater notified by Dr. Montez procedure cancelled and cleared to resume heparin IV gtt. Confirmed with Thoracic Surgery yesterday procedure rescheduled to 08/05 at [...] a 79 y.o. female : 1945 MR#: [id number] SUBJECTIVE Follow up:metabolic encephalopathy, renal failure requiring [...] of fentanyl administered during the procedure. Scanner: [place] [address] Dose reduction technique: AEC [...] Signed Date: 07/22/2024 17:00 ET Workstation ID: [id number] Transcribed By: Self Edit Transcribed Date: 07/22/2024 [...] Ana Contreras by Nelli Schmidt OT on 07/29/2024. [...] 07/29/24 74.6 kg (164 lb 6.4 oz) 12/20/24 76.2 kg (168 lb) 06/13/24 76.5 kg [...] mg daily PPI Bactrim DS thrice weekly () Lung mass biopsy with Dr. Montez Renal diet Outpatient HD arranged at [facility] - 1st shift [phone]) Consider [facility] or [facility] if going to SNF Miguel Quiles MD * Sharon Solis RN - 07/29/2024 4:07 AM EST Goals: Identify possible barriers to meeting goals/advancing plan of care: Stability of the patient: Unstable - High likelihood or risk of patient condition declining or worsening End of Shift Summary: Problem: Falls: Fall Risk ([facility]) Goal: (Goal) Patient will experience maximum safety [...] a 79 y.o. female : 1945 MR#: [id number] SUBJECTIVE Follow up:metabolic encephalopathy, renal failure requiring [...] of fentanyl administered during the procedure. Scanner: [place] [address] Dose reduction technique: AEC [...] Signed Date: 07/22/2024 17:00 ET Workstation ID: [id number] Transcribed By: Self Edit Transcribed Date: 07/22/2024 [...] Therapy Therapy session was attempted for Ana A Contreras by Florecita Camara PT on 07/28/2024. The patient was unable to be seen for the following reason(s): Other: Per nurse, she was about to start new medicine for her. She asked to defer PT for today Plan for return visit: Tomorrow * Jules Woods, OT - 07/28/2024 11:25 AM EST Therapy session was attempted for Hendrum A Contreras by Jules Woods OT on [...] examined No complaints D/w medical attending D/w [facility] pathology MEDICAL HISTORY Past Medical History: Diagnosis [...] CHLORIDE mmol/L 97 93* 94* CO2 mmol/L 30 30 Phosphorus Date Value Ref Range [...] Montez Renal diet Outpatient HD arranged at [facility] - 1st shift [phone]) Consider [facility] or [facility] if going to [facility] Miguel Quiles MD * Jonny Mathur MD - 07/27/2024 7:02 PM EST Images from the original note were not included. SONYA PROGRESS NOTE Date: 07/27/2024 Author: Jonny Mathur MD Patient ID: Ana Contreras is a 79 y.o. female : 1945 MR#: [id number] SUBJECTIVE Follow up:metabolic encephalopathy, renal failure requiring [...] of fentanyl administered during the procedure. Scanner: [place] [address] Dose reduction technique: AEC [...] Signed Date: 07/22/2024 17:00 ET Workstation ID: [id number] Transcribed By: Self Edit Transcribed Date: 07/22/2024 [...] Ordered 07/27/24 0001 Adult NPO diet Location: [facility]; Diet: NPO- Except for Medications Diet effective midnight Question Answer Comment Location [facility] Diet NPO- Except for Medications 07/26/24 1755 07/11/24 1133 Dietary nutrition supplements Two times daily (BID); [facility]; Diabetic Supplement Continuous Question Answer Comment Frequency Two times daily (BID) Location [facility] Supplements Diabetic Supplement 07/11/24 1132 History of presenting illness: Patient is a 79 y.o. female with a history of Past Medical History: Diagnosis Date Anemia Arthritis Blindness Decreased vision 11/29/2014 DX:Decreased vision Diabetes mellitus, type 2 (CMS/HCC) 02/14/2014 DX:Diabetes mellitus, type [address]) DVT, lower extremity ([facility]) LEFT LEG Family history of early [...] at home. No noted food allergies. Appetite AGRICULTURAL EXTENSION EDUCATOR: Poor Intake AGRICULTURAL EXTENSION EDUCATOR: Decreased Weight History: Wt Readings from Last [...] lung biopsy this morning. Currently NPO. Per pegger, pt consuming 25-50% of meals since last [...] or fat depletion Skin: Skin intact per pegger Nutrition Diagnosis: Code Type: None Identified Status: [...] 18 Units/kg/hr, Last Rate: 21 Units/kg/hr (07/27/24 0434) OBJECTIVE Vital signs in last 24 hours: [...] mg daily PPI Bactrim DS thrice weekly (-) Lung mass biopsy which on Thursday07/27/[address] Montez Renal diet Outpatient HD arranged at [facility] - shift [phone]) Consider [facility] or [facility] if going to [facility] Miguel Quiles MD * Katina [...] were not included. SONYA PROGRESS NOTE Date: 07/26/2024 Author: Jonny Mathur MD Patient ID: Ana Contreras is a 79 y.o. female : 1945 MR#: [id number] SUBJECTIVE Follow up:metabolic encephalopathy, renal failure requiring [...] of fentanyl administered during the procedure. Scanner: [place] [address] Dose reduction technique: AEC [...] Signed Date: 07/22/2024 17:00 ET Workstation ID: [id number] Transcribed By: Self Edit Transcribed Date: 07/22/2024 [...] to procedure Traumatic rhabdomyolysis Resolved DISPOSITION * Jolene Cardona RN - 07/26/2024 3:51 PM EST [...] ml ofdark red blood noted in the MD osvaldo notified. Pt also had a soft brown BM. CBC/BMP scheduled fortomorrow morning. * Tarsha Corea RN - 07/26/2024 3:07 PM EST DANITZA: 07/28 Barriers: Bronch w lung mass bx 07/27, Renal Bx 07/22 w/ path pending, new HD, trend labs, H/H, heparin drip-LLE DVT, repeat PT eval Plan: [facility] considering pending bed and HD slot. [facility] accepting w family to provide HD transportation support if Pt can get in/out of private vehicle. * Nithya Constantino, PT - 07/26/2024 8:45 AM EST Patient: Ana Contreras Age: 79 y.o. Sex: female Acute encephalopathy [facility] Physical Therapy RE-Evaluation Ambulation: Walking Assistance: Minimum [...] Distance Ambulated (ft): 3 PLOF: Level of [place]: Independent with mobility and functional transfers Lives With: Alone Type of Home: House Home Adaptive Equipment: Cane, Rollator Home Layout: One level Home Access: Stairs to enter without rails DME Needs: r walker PT Discharge Recommendation: Inpatient rehab facility placement, [facility] facility placement Reason for current recommendation based [...] 11/29/2014 DX:Decreased vision Diabetes mellitus, type 2 ([facility]/HCC) 02/14/2014 DX:Diabetes mellitus, type 2 ([facility]) DVT, lower extremity ([facility]) LEFT LEG Family history of early [...] Shower/Tub Tub/shower unit Prior Function Level of [place] Independent with mobility and functional transfers Ambulation [...] week PT Discharge Recommendations Inpatient rehab facility placement;[facility] facility placement Equipment Recommended r walker PT [...] 2 (CMS/HCC) 02/14/2014 DX:Diabetes mellitus, type 2 ([facility]) DVT, lower extremity ([facility]) LEFT LEG Family history of early [...] Montez Renal diet Outpatient HD arranged at [facility] - 1st shift [phone]) Consider [facility] or [facility] if going to [facility] Miguel Quiles MD * Katina [...] were not included. SONYA PROGRESS NOTE Date: 07/25/2024 Author: Jonny Mathur MD Patient ID: Ana Contreras is a 79 y.o. female : 1945 MR#: [id number] SUBJECTIVE Follow up:metabolic encephalopathy, renal failure requiring [...] of fentanyl administered during the procedure. Scanner: [place] [address] Dose reduction technique: AEC [...] Signed Date: 07/22/2024 17:00 ET Workstation ID: [id number] Transcribed By: Self Edit Transcribed Date: 07/22/2024 [...] Therapy Therapy session was attempted for Ana A Contreras by Nithya Constantino PT on 07/25/2024. [...] Montez Renal diet Outpatient HD arranged at [facility] m-w-f 1st shift [phone]) Consider [facility] or [facility] if going to [facility] Miguel Quiles MD * Tarsha Corea RN - 07/25/2024 8:45 AM EST DANITZA: 07/28 Barriers: Renal Bx 07/22 w/ path pending, new HD, trend labs, H/H, heparin drip- LLE DVT, repeat Pt eval, lung mass biopsy 07/27 Plan: 1st choice - [facility] d/t onsite HD. [facility] accepting w family to provide HD [...] remain negative. No signs of bleeding currently * Larisa Al RN - 07/24/2024 4:13 PM EST 07/24/24 1613 Back up Transition Plan Back up Transition plan [facility] Barriers to discharge: Renal Bx 07/22 path pending, new HD, trend labs, H/H, heparin drip-LLE DVT, repeat Pt eval, lung mass biopsy 07/27 Plan: [facility] accepting w family to provide HD transportation support. * Lencho Stuart MD - 07/24/2024 1:11 PM EST Images from the original note were not included. SONYA PROGRESS NOTE Date: 07/24/2024 Author: Lencho Stuart MD Patient ID: Ana Contreras is a 79 y.o. female : 1945 MR#: [id number] SUBJECTIVE CC: Follow-up renal failure No complaints. [...] Dr. Montez. I sent the haiku to [place] yesterday but have not heard back. Will [...] pending SNF bed, anticoagulation/lung mass biopsy HCP: DaughterDennise. [phone] * Tony Golden MD - 07/24/2024 8:59 [...] 18 Units/kg/hr, Last Rate: 21 Units/kg/hr (07/23/24 6518) OBJECTIVE Vital signs in last 24 hours: [...] oligoanuric REC Kidney biopsy thursday HD - treatment thursday Cont prednisone 60 mg daily [...] remains at21ux/kg/hr. Cont low to no u/o ICK Welch RN - 07/23/2024 11:20 AM EST [...] tx Thursday07/26/2024 Weight (Unable to obtain weight) ICK Stuart MD - 07/23/2024 11:06 AM EST Images from the original note were not included. SONYA PROGRESS NOTE Date: 07/23/2024 Author: Lencho Stuart MD Patient ID: Ana Contreras is a 79 y.o. female : 1945 MR#: [id number] SUBJECTIVE CC: Follow-up renal failure Post procedure [...] DC likely next week. HCP: Daughter, Dennise. [phone] ICK Schmidt OT - 07/23/2024 9:00 AM EST Therapy session was attempted for Ana A Contreras by Nelli Schmidt OT on 07/23/2024. [...] 7 days Lab Units 07/23/24 0544 07/22/24 03107/21/24 0855 CREATININE mg/dL 4.16* 2.87* 5.05* BUN [...] were not included. SONYA PROGRESS NOTE Date: 07/22/2024 Author: Lencho Stuart MD Patient ID: Ana Contreras is a 79 y.o. female : 1945 MR#: [id number] SUBJECTIVE CC: Follow-up renal failure Seen in [...] Daily heparin, 18 Units/kg/hr, Last Rate: Stopped (07/22/24647) PRN medications: acetaminophen, benzonatate, dextrose 50%, dextrose 50%, dextrose, dextrose, glucagon injection, heparin OR heparin, hydrALAZINE, HYDROmorphone, naloxone, ondansetron, oxyCODONE, artificial tears, Insert peripheral IV AND Maintain IV access AND Saline lock IV AND sodium chloride AND sodium chloride, sodium chloride, sodium chloride Fluids: heparin, 18 Units/kg/hr, Last Rate: Stopped (07/22/24647) ASSESSMENT & PLAN 79-year-old female with PMH [...] SNF bed. DC likely next week. HCP: DaughterDennise. [phone] * Kayleigh Laguna, RD - 07/22/2024 12:44 PM EST 07/22/2024 [...] Ordered 07/22/24 0001 Adult NPO diet Location: [facility]; Diet: NPO- Except for Medications Diet effective midnight Question Answer Comment Location [facility] Diet NPO- Except for Medications 07/21/24 1326 07/11/24 1133 Dietary nutrition supplements Two times daily (BID); [facility]; Diabetic Supplement Continuous Question Answer Comment Frequency Two times daily (BID) Location [facility] Supplements Diabetic Supplement 07/11/24 1132 Food/Nutrition History: Previous Diet / Nutrition Education / Counseling: Per MST screeening, pt reports weight loss of 24-33 lb in past 3 months, and reports poor PO intake. Pt living by herself prior to admission, but hassupport from children. History of DM- takes glipizide at home. No noted food allergies. Appetite AGRICULTURAL EXTENSION EDUCATOR: Poor Intake AGRICULTURAL EXTENSION EDUCATOR: Decreased Weight History: Wt Readings from Last [...] or fat depletion Skin: Skin intact per pegger Nutrition Diagnosis: Code Type: None Identified Status: [...] bx is [place], Pt may transition to [facility] per family. Per IPR, Pulmonary IR stated possible intervention 07/27. Plan: STR pending accepting facility w HD support. * Nithya Constantino PT - 07/22/2024 8:30 AM EST Patient: Ana Contreras Age: 79 y.o. Sex: female Acute encephalopathy [facility] Physical Therapy Treatment Ambulation: Walking Assistance: Minimum assistance Walking Deficit: Steadying, Verbal cueing, Supervision/safety awareness, Increased time to complete, Assist for trunk control, Assist for weight shifting, Limited endurance, Impaired balance, LE weakness Device: Rolling walker Distance Ambulated (ft): 2 PLOF: Level of [place]: Independent with mobility and functional transfers Lives [...] working with PT, and was agreeable. 07/22/24 0830 PT Last Visit PT Received On 07/22/24 General Family/Caregiver Present No PT Time Calculation PT Start Time 08 PT Stop Time 904 PT Time Calculation [...] Plan PT Discharge Recommendations Inpatient rehab facility placement;[facility] facility placement Equipment Recommended r walker Barriers [...] 2 (CMS/HCC) 02/14/2014 DX:Diabetes mellitus, type 2 ([facility]) DVT, lower extremity (CMS/[facility]) LEFT LEG Family history of early [...] BM 07/16/24. Lopez drained 50 ml urine. ICK Stuart MD - 07/21/2024 1:34 PM EST Images from the original note were not included. SONYA PROGRESS NOTE Date: 07/21/2024 Author: Lencho Stuart MD Patient ID: Ana Contreras is a 79 y.o. female : 1945 MR#: [id number] SUBJECTIVE CC: Follow-up renal failure Seen during [...] DC likely next week. HCP: Daughter, Dennise. [phone] * Louis Welch RN - 07/21/2024 12:55 [...] from f/c overnight. HR 100's. NPO since [place]. Bed alarm on. * Jolene Cardona RN [...] a 79 y.o. female : 1945 MR#: [id number] SUBJECTIVE CC: Follow-up renal failure Seen in [...] Barrier: renal biopsy, pending SNF bed. HCP: Daughter, Dennise. [phone] * Miguel Quiles MD - 07/20/2024 12:09 [...] at 07/20/2024 1209 Last data filed at 07/19/2024 2030 Gross per 24 hour Intake 1166.01 ml [...] Age: 79 y.o. Sex: female Acute encephalopathy [facility] Physical Therapy Treatment Ambulation: Walking Assistance: Moderate assistance Device: Rolling walker Distance Ambulated (ft): 2 PLOF: Level of [place]: Independent with mobility and functional transfers Lives With: Alone Type of Home: House Home Adaptive Equipment: Cane, Rollator Home Layout: One level Home Access: Stairs to enter without rails DME Needs: rLindsaywalker PT Discharge Recommendation: Reason for current recommendation [...] ble's) Therapeutic Activity 2 sit-stand transfers at [facility], mod assist to adjust posture, hand and foot posture, and to facilitate forward trunk over ISABELLE. Pt stood, supported at [facility] with mod assist, limited by [...] Recommendations: Inpatient rehab facility placement Equipment Recommended: [email or web address] Time Spent: PT Time Calculation PT Start [...] a 79 y.o. female : 1945 MR#: [id number] SUBJECTIVE CC: Follow-up RENE, DVT and encephalopathy [...] heparin, 18 Units/kg/hr, Last Rate: 28 Units/kg/hr (07/19/2410) PRN medications: acetaminophen, benzonatate, dextrose 50%, dextrose [...] days. Barrier: Heparin, anemia HCP: Daughter, Dennise. [phone] * Jose Lujan RN - 07/19/2024 11:20 [...] PRN for the MARTINE[facility] with improvement post social media content specialist. Pt's floorRN aware of leg pain and will medicate pt upon arrival to pt's rm. Pt offered no other complaints to tx. [...] safety and reduce risk for falls. 07/19/2024 024 by Katina Torres RN Outcome: Adequate for Discharge 07/19/2024 024 by Katina Torres RN Outcome: Progressing 07/19/2024 024 by Katina Torres RN Outcome: Progressing 07/19/2024 0238 by Katina Torres RN Outcome: Progressing Goal: Patient will not fall or injure themselves during hospitalization. 07/19/2024 024 by Katina Torres RN Outcome: Adequate for Discharge 07/19/2024 024 by Katina Torres RN Outcome: Progressing 07/19/2024 024 by Katina Torres RN Outcome: Progressing 07/19/2024 0238 by Katina Torres RN Outcome: Progressing Problem: Balance Goal: Patient will demonstrate Intervention to enhance balance for safe completion of daily activities 07/19/2024 024 by Katina Torres RN Outcome: Adequate for Discharge 07/19/2024 024 by Katina Torres RN Outcome: Progressing 07/19/2024 0238 by Katina Torres RN Outcome: Not Progressing Goal: Patient will maintain balance 07/19/2024 024 by Katina Torres RN Outcome: Adequate for Discharge 07/19/2024 024 by Katina Torres RN Outcome: Progressing 07/19/2024 0238 by Katina Torres RN Outcome: Not Progressing Goal: Patient will maintain balance to allow for safe mobility 07/19/2024 024 by Katina Torres RN Outcome: Adequate for Discharge 07/19/2024 024 by Katina Torres RN Outcome: Progressing 07/19/2024 0238 by Katina Torres RN Outcome: Progressing Goal: Patient will maintain standing and sitting balance to allow for completion of daily activities 07/19/2024 024 by Katina Torres RN Outcome: [...] sitting balance without upper extremity support 07/19/2024 0246 by Katina Torres RN Outcome: Adequate for Discharge 07/19/2024 024 by Katina Torres RN Outcome: Progressing Goal: Maintains dynamic sitting balance with upper extremity support 07/19/2024 0246 [...] down a curb/step with the appropriate device 07/19/2024 0246 by Katina Torres RN Outcome: Adequate for Discharge 07/19/2024 0242 by Katina Torres RN Outcome: Not Progressing 07/19/2024 0238 by Katina Torres RN Outcome: Not Progressing Goal: Patient will propel wheelchair household/community distances 07/19/2024 0246 by Katina Torres RN Outcome: Adequate for Discharge 07/19/2024 0242 by Katina Torres RN Outcome: Not Progressing 07/19/2024 0238 by Katina Torres RN Outcome: Adequate for Discharge Goal: Patient will demonstrate kitchen mobility 07/19/2024 0246 by Katina Torres RN Outcome: Adequate for Discharge 07/19/2024 0242 by Katina Torres RN Outcome: Not Progressing 07/19/2024 0238 by Katina Torres RN Outcome: Not Progressing Goal: Patient will recall and demonstrate 3 out of 3 total hip precautions during mobility 07/19/2024 0246 by Katina Torres RN [...] Goal: Patient will ambulate 07/19/2024 0246 by Katina Torres RN Outcome: Adequate for Discharge 07/19/2024 024 by Katina Torres RN Outcome: Not Progressing 07/19/2024 0238 by Katina Torres RN Outcome: Not Progressing Goal: Patient will ambulate up and down a curb/step 07/19/2024 024 by Katina Torres RN Outcome: [...] RN Outcome: Progressing 07/19/2024 0242 by Katina Torres, RN Outcome: Progressing 07/19/2024 0238 by Katina Torres, RN Outcome: Progressing Problem: Transfers Goal: Patient will transfer to car 07/19/2024 0246 by Katina oTrres, RN Outcome: Adequate for Discharge 07/19/2024 0242 by Katina Torres, RN Outcome: Not Progressing 07/19/2024 0238 by Katina Torres RN Outcome: Not Progressing Goal: Patient will transfer from one surface to another 07/19/2024 0246 by Katina Torres, RN Outcome: Adequate for Discharge 07/19/2024 0242 by Katina Torres RN Outcome: Not Progressing 07/19/2024 0238 by Katina Torres RN Outcome: Not Progressing Goal: Patient will demonstrate safe transfer techniques 07/19/2024 0246 by Katina Torres RN Outcome: Adequate for Discharge 07/19/2024 0242 by Katina Torres RN Outcome: Progressing 07/19/2024 0238 by Katina Torres RN Outcome: Progressing Goal: Patient will transfer to commode 07/19/2024 0246 by Katina Torres RN Outcome: [...] Goal: Patient will perform tub/shower transfer 07/19/2024 0246 by Katina Torres RN Outcome: Adequate for Discharge 07/19/2024 024 by Katina Torres RN Outcome: Progressing Goal: Patient will follow hip precautions during transfers 07/19/2024 024 by Katina Torres RN Outcome: Adequate for Discharge 07/19/2024 024 by Katina Torres RN Outcome: Progressing Goal: Patient maintains weight bearing status during transfers 07/19/2024 0246 by Katina Torres RN Outcome: Adequate for Discharge 07/19/2024 024 by Katina Torres RN Outcome: Progressing Problem: Pain Goal: Patient will manage pain with the appropriate technique/Intervention 07/19/2024 0246 by Katina Torres RN Outcome: Adequate for Discharge 07/19/2024 0243 by Katina Torres RN Outcome: Progressing 07/19/2024 024 by Katina Torres RN Outcome: Progressing 07/19/2024 0238 by Katina Torres RN Outcome: Progressing Goal: Patient will demonstrate intervention for managing pain 07/19/2024 0246 by Katina Torres RN Outcome: Adequate for Discharge 07/19/2024 024 by Katina Torres RN Outcome: Progressing 07/19/2024 0242 by Katina Torres RN Outcome: Progressing 07/19/2024 0238 by Katina Torres RN Outcome: Progressing Goal: Patient will reduce or eliminate use of analgesics 07/19/2024 0246 by Katina Torres RN Outcome: [...] allow active participation in daily activities 07/19/2024 024 by Katina Torres RN Outcome: Adequate for Discharge 07/19/2024 024 by Katina Torres RN Outcome: Progressing 07/19/2024 024 by Katina Torres RN Outcome: Progressing 07/19/2024 0238 by Katina Torres RN Outcome: Progressing Goal: Patient will increase activity level 07/19/2024 024 by Katina Torres RN Outcome: Adequate for Discharge 07/19/2024 024 by Katina Torres, RN Outcome: Progressing 07/19/2024 0238 by Katina Torres RN Outcome: Progressing Goal: Patient verbalizes a reduction in pain level 07/19/2024 024 by Katina Torres, RN Outcome: Adequate for Discharge 07/19/2024 024 by Katina Torres RN Outcome: Progressing 07/19/2024 024 by Katina Torres RN Outcome: Progressing 07/19/2024 0238 by Katina Torres RN Outcome: Progressing Problem: Compromised Skin Integrity Goal: Patient will be free from infection 07/19/2024 0246 by Katina S, RN Outcome: Adequate for Discharge 07/19/2024 0243 [...] will demonstrate appropriate pressure relief techniques 07/19/2024 0246 by Katina Torres RN [...] Goal: Patient demonstrates skin care/treatment/dressing change 07/19/2024 0246 by Katina Torres RN Outcome: Adequate for Discharge 07/19/2024 0242 by Katina Torres RN Outcome: Progressing Goal: Patient will maintain good skin integrity 07/19/2024 0246 by Katina Torres RN Outcome: Adequate for Discharge 07/19/2024 024 by Katina Torres RN Outcome: Progressing Goal: Patient exhibits signs of wound healing. 07/19/2024 0246 by Katina Torres RN Outcome: Adequate for Discharge 07/19/2024 0243 by Katina Torres RN Outcome: Progressing 07/19/2024 024 by Katina Torres RN Outcome: Progressing Goal: Patient demonstrates pressure reduction techniques 07/19/2024 0246 by Katina S, RN Outcome: Adequate for Discharge 07/19/2024 024 by Katina Torres RN Outcome: Progressing Goal: Patient demonstrates preventative skin care measures 07/19/2024245 by Katina Torres RN Outcome: Adequate for Discharge 07/19/2024241 by Katina Torres RN Outcome: Progressing Goal: Patient will perform skin checks daily on residual limb 07/19/2024245 by Katina Torres RN Outcome: Adequate [...] a 79 y.o. female : 1945 MR#: [id number] SUBJECTIVE CC: Follow-up RENE, DVT and encephalopathy [...] SNF over the next 1-3 days. HCP: Daughter, Dennise. [phone] * Kayleigh Laguna RD - 07/18/2024 4:24 [...] onward) Start Ordered 07/17/24 1206 Adult diet [facility]; Cardiac, Diabetic; 60 gm carb/Meal; Cardiac Diet effective now Question Answer Comment Location [facility] Diet Type (req) Cardiac Diet Type (req) Diabetic Diabetic 60 gm carb/Meal Diet Type (cardiac) Cardiac 07/17/24 1205 07/11/24 1133 Dietary nutrition supplements Two times daily (BID); [facility]; Diabetic Supplement Continuous Question Answer Comment Frequency Two times daily (BID) Location [facility] Supplements Diabetic Supplement 07/11/24 1132 History of presenting illness: Patient is a 79 y.o. female with a history of Past Medical History: Diagnosis Date Anemia Arthritis Blindness Decreased vision 11/29/2014 DX:Decreased vision Diabetes mellitus, type 2 (CMS/HCC) 02/14/2014 DX:Diabetes mellitus, type 2 (HCC) DVT, lower extremity ([facility]) LEFT LEG Family history of early [...] at home. No noted food allergies. Appetite AGRICULTURAL EXTENSION EDUCATOR: Poor Intake AGRICULTURAL EXTENSION EDUCATOR: Decreased Weight History: Wt Readings from Last [...] or fat depletion Skin: Skin intact per pegger Nutrition Diagnosis: Code Type: None Identified Status: [...] 1345 Type of Visit: Initial Visit and Spar Machine Operator Helper Rounding Reason for Visit: Spiritual/Emotional Support and Spiritual Assessment Time Spent: 25 Minutes Location: [address] [place] [address] Sacramental Encounters: Spiritual Distress Assessment: Spiritual Distress [...] and missed her two cats. Pt reportedbeing Advent while also reporting that she did not pray often. Spar Machine Operator Helper's suggestion to pray that evening was received [...] usually? Transcendence Do you have a particular sabianist, jimena, or spirituality? Is your sabianist/spirituality/jimena challenged by what is happening to you [...] 7 days Lab Units 07/18/24 0607 07/17/24 0607/16/24 0645 WBC AUTO K/mcL 25.5* 23.0* 23.0* [...] 2 (CMS/HCC) 02/14/2014 DX:Diabetes mellitus, type [address]) Family history of early CAD 03/01/2014 [...] MD - 07/17/2024 9:05 AM EST Ana Chaparro Contreras 07/08/2024 1945 79 y.o. [id number] Kwesi Guido, * INTERVAL HISTORY: No events [...] Signed Date: 07/16/2024 12:33 ET Workstation ID: [id number] Transcribed By: Self Edit Transcribed Date: 07/16/2024 [...] - pending clinical improvement HCP -Daughter Dennise [phone], she was updated at bedside today. 45 minutes were spent in patient care including wjcc-ex-[id number] time, chart review, discussion with providers, documentation, customs and border protection officer. High complexity medical decision making. Health Care proxy with Phone number: Paul Contreras Jr (Son) Disclaimer: Speech recognition software was utilized to dictate portions of this document. Errors in director of undergraduate admissions may be present. Please call / cortext [...] Guido MD - 07/16/2024 6:35 PM EST Hendrum A Ben 07/08/2024 1945 79 y.o. [id number] Kwesi Guido, * INTERVAL HISTORY: No events [...] Units 07/16/24 1628 07/16/24 1042 07/16/24 0645 07/15/246 07/15/24 1630 POCT GLUCOSE mg/dL 170* 105* -- [...] Signed Date: 07/16/2024 12:33 ET Workstation ID: [id number] Transcribed By: Self Edit Transcribed Date: 07/16/2024 [...] - pending clinical improvement HCP -Daughter Dennise [phone], she was updated at bedside today. 60 minutes were spent in patient care including bsrb-tr-[id number] time, chart review, discussion with providers, documentation, customs and border protection officer. High complexity medical decision making. Health Care proxy with Phone number: Disclaimer: Speech recognition software was utilized to dictate portions of this document. Errors in director of undergraduate admissions may be present. Please call / cortext [...] MD at 07/17/2024 10:05 AM EST * Louis Welch RN - 07/16/2024 10:25 AM EST [...] 2 (CMS/HCC) 02/14/2014 DX:Diabetes mellitus, type 2 ([facility]) Family history of early CAD 03/01/2014 [...] MD - 07/15/2024 6:05 PM EST Ana Contreras 07/08/2024 1945 79 y.o. [id number] Kwesi Guido, * INTERVAL HISTORY: No events [...] - pending clinical improvement HCP -Dr. Bowden [phone], she was updated at bedside today. Health Care proxy with Phone number: Disclaimer: Speech recognition software was utilized to dictate portions of this document. Errors in director of undergraduate admissions may be present. Please call / cortext [...] 0800 Jennifer-Wound Assessment Unable to assess 07/15/24 0800 Wound Length (cm) 0.5 cm 07/15/24 1117 [...] Isidra Florence - 07/14/2024 2:14 PM EST [facility] Physical Therapy Evaluation & Treatment PT Discharge Recommendations: [facility] facility placement Staff Recommendations for safe patient [...] is a 79 y.o. female admitted to [facility] on 07/08/2024. Patient Active Problem List Diagnosis Hypertension Hyperlipidemia History of cancer of unknown primary site CKD (chronic kidney disease) stage 4, GFR 15-29 ml/min ([facility]) Iron deficiency anemia Impaired renal function Type 2 diabetes mellitus without complication, without long-term current use of insulin ([facility]) Lung mass Acute encephalopathy Past Medical History: Diagnosis Date Anemia Arthritis Blindness Decreased vision 11/29/2014 DX:Decreased vision Diabetes mellitus, type 2 ([facility]) 02/14/2014 DX:Diabetes mellitus, type 2 ([facility]) Family history of early CAD 03/01/2014 [...] Shower/Tub: Tub/shower unit Prior Function Level of [place]: Independent with mobility and functional transfers Ambulation [...] 1 time per day PT Discharge Recommendations [facility] facility placement Equipment Recommended walker PT - [...] is a 79 y.o. female admitted to [facility] on 07/08/2024 for Hyponatremia [E87.1] Acute [...] deficits listedabove and optimize function. PT recommends [facility] facility placement when medically stablefor safe discharge [...] 11/29/2014 DX:Decreased vision Diabetes mellitus, type 2 ([facility]/HCC) 02/14/2014 DX:Diabetes mellitus, type 2 ([facility]) Family history of early CAD 03/01/2014 [...] MD - 07/14/2024 10:35 AM EST Ana Chaparro Contreras 07/08/2024 1945 79 y.o. [id number] Kwesi Guido, * INTERVAL HISTORY: No events [...] but no reported vaginal discharge. OBJECTIVE: Vitals: 07/13/24200807/14/24 0332 07/14/24 0600 07/14/24 0817 BP: (!) 174/62 126/84 (!) 150/51 BP Location: Right arm Right arm Right arm Patient Position: Lying Lying Sitting Pulse: 101 101 100 Resp: 20 20 18 Temp: 36.8 ??C (98.2 ??F) 37.2 ??C [...] ml Wt Readings from Last 1 Encounters: 07/14/24 06 83.5 kg (184 lb) 07/14/24 0332 83.6 [...] from last 7 days Lab Units 07/14/24 0607/13/24 0638 07/12/24 0619 07/11/24 0621 WBC AUTO [...] performed without IV contrast. DLP: 613.10 mGy/cm Micromuscle VCT Iterative reconstruction technique Findings: Respiratory motion [...] lymphadenopathy. 3. Small bilateral pleural [place] ([id number]) -------- FINAL REPORT -------- Dictated By: Edilia Durbin Dictated Date: 07/12/2024 13:07 ET Assigned Physician: Edilia Durbin Reviewed and Electronically Signed By: Edilia Durbin Signed Date: 07/12/2024 13:19 ET Workstation ID: [id number] Transcribed By: Self Edit Transcribed Date: 07/12/2024 [...] - pending clinical improvement HCP -Dr. Bowden [phone], she was updated at bedside today. Health Care proxy with Phone number: Disclaimer: Speech recognition software was utilized to dictate portions of this document. Errors in director of undergraduate admissions may be present. Please call / cortext [...] by Melany Eugene RN Outcome: Progressing 07/13/2024 172 by Melany Eugene RN Outcome: Progressing Problem: Balance Goal: Patient will demonstrate Intervention to enhance balance for safe completion of daily activities 07/13/2024 1720 by Melany Eugene RN Outcome: Progressing 07/13/2024 1720 by Melany Eugene RN Outcome: Progressing Goal: Patient will maintain balance 07/13/2024 1720 by Melany Eugene RN Outcome: Progressing 07/13/2024 1720 by Melany Eugene, RN Outcome: Progressing Goal: Patient will maintain balance to allow for safe mobility 07/13/2024 1720 by Melany Eugene, RN Outcome: Progressing 07/13/2024 1720 by Melany Eugene RN Outcome: Progressing Goal: Patient will maintain standing and sitting balance to allow for completion of daily activities 07/13/2024 1720 by Melany Eugene, RN Outcome: Progressing 07/13/2024 1720 by Melany Eugene, RN Outcome: Progressing Goal: Patient will tolerate standing 07/13/2024 1720 by Melany Eugene, RN Outcome: Progressing 07/13/2024 1720 by Melany Eugene, RN Outcome: Progressing Goal: Maintains dynamic standing balance with upper extremity support 07/13/2024 1720 by Melany Eugene, RN Outcome: Progressing 07/13/2024 1720 by Melany Eugene, RN Outcome: Progressing Goal: Maintains dynamic standing [...] upper extremity support 07/13/2024 1720 by Melany Eugnee, RN Outcome: Progressing 07/13/2024 1720 by Melany Eugene, RN Outcome: Progressing Goal: Maintains dynamic sitting balance without upper extremity support 07/13/2024 1720 by Melany Eugene, RN Outcome: Progressing 07/13/2024 1720 by Melany Eugene RN Outcome: Progressing Problem: Mobility Goal: Patient will be able to go up and down a curb/step with the appropriate device 07/13/2024 1720 by Melany Eugene RN Outcome: Progressing 07/13/2024 1720 by Melany Eugene RN Outcome: Progressing Goal: Patient will propel wheelchair household/community distances 07/13/2024 1720 by Melany Eugene RN Outcome: Progressing 07/13/2024 1720 by Melany Eugene RN Outcome: Progressing Goal: Patient will demonstrate kitchen mobility 07/13/2024 1720 by Melany Eugene RN Outcome: Progressing 07/13/2024 1720 by Melany Eugene RN Outcome: Progressing Goal: Patient will recall and demonstrate 3 out of 3 total hip precautions during mobility 07/13/2024 1720 by Melany Eugene RN [...] -Review of spot urine for electrolytes protein [id number] Q [place] is not clearly pointing towards significant prerenal [...] No indication today They agree to have CHILLER OPERATOR if she needs it Discussed with the medical team in detail about the patient Chencho Wayne MD * Kwesi Guido MD - 07/13/2024 10:44 AM EST Ana Krysta Rappbs 07/08/2024 1945 79 y.o. [id number] Kwesi Guido, * INTERVAL HISTORY: No events overnight SUBJECTIVE : Met with daughter at bedside Patient is more anemic No bleeding No fever or chills No cough or chest pain or shortness of breath Agreeable to repeat transfusion OBJECTIVE: Vitals: 07/12/24200707/13/24 0346 07/13/24 0600 07/13/24 0811 BP: (!) 142/68 (!) 150/58 137/54 BP Location: Right arm Right arm Right arm Patient Position: Lying Lying Sitting Pulse: 100 102 96 Resp: 16 18 18 Temp: 37.2 ??C (99 ??F) 36.9 [...] 0638 07/12/24 0619 07/11/24 0621 07/10/24 0516 07/09/24 [...] days Lab Units 07/13/24 0813 07/13/24 0638 07/12/24200507/12/24 1553 07/12/24 1148 POCT GLUCOSE mg/dL 87 [...] - pending clinical improvement HCP -Dr. Bowden [phone], she was updated at bedside today. Health Care proxy with Phone number: Disclaimer: Speech recognition software was utilized to dictate portions of this document. Errors in director of undergraduate admissions may be present. Please call / cortext [...] Dietary nutrition supplements Two times daily (BID); [facility]; Diabetic Supplement Continuous Question Answer Comment Frequency Two times daily (BID) Location [facility] Supplements Diabetic Supplement 07/11/24 1132 07/11/24 1133 Adult diet [facility]; Cardiac, Diabetic; 75 gm carb/Meal; No Added Salt Diet effective now Question Answer Comment Location [facility] Diet Type (req) Cardiac Diet Type (req) [...] at home. No noted food allergies. Appetite AGRICULTURAL EXTENSION EDUCATOR: Poor Intake AGRICULTURAL EXTENSION EDUCATOR: Stable Weight History: Wt Readings from Last [...] or fat depletion Skin: Skin intact per pegger Nutrition Diagnosis: Code Type: None Identified Status: [...] Guido MD - 07/12/2024 11:47 PM EST [facility] Provider Response Note PATIENT: ANA CONTRERAS : 1945 ADMIT DATE: 07/08/2024 2:44 PM DISCH DATE: RESPONDING PROVIDER #: [id number] PROVIDER RESPONSE TEXT: The patient has metabolic encephalopathy. QUERY TEXT: Encephalopathy is documented in the medical record. Please specify the type. H&P 07/08/2024 (3) Patient will be transferred to the care of [place] staff for further management of their acute [...] 07/12/2024 11:10 AM Electronically signed by: KWESI GUDIO MD 07/12/2024 11:46 PM * Cait Shah [...] 11/29/2014 DX:Decreased vision Diabetes mellitus, type 2 ([facility]/HCC) 02/14/2014 DX:Diabetes mellitus, type 2 ([facility]) Family history of early CAD 03/01/2014 [...] from last 7 days Lab Units 07/12/24 0607/11/24 0607/10/24 0516 WBC AUTO K/mcL 21.8* 18.4* 16.9* [...] MD - 07/12/2024 10:44 AM EST Ana Chaparro Contreras 07/08/2024 1945 79 y.o. [id number] Kwesi Guido, * INTERVAL HISTORY: No events [...] with her daughter at bedside. OBJECTIVE: Vitals: 07/11/24 2000 07/12/24 0349 07/12/24 0555 07/12/24 0805 BP: (!) 148/52 (!) [...] from last 7 days Lab Units 07/12/24 0607/11/24 0607/10/24 0516 07/09/24 06 WBC AUTO K/mcL 21.8* 18.4* 16.9* 18.4* [...] Signed Date: 07/10/2024 14:08 ET Workstation ID: [id number] Transcribed By: Self Edit Transcribed Date: 07/10/2024 [...] - pending clinical improvement HCP -Dr. Bowden [phone], she was updated at bedside today. Health Care proxy with Phone number: Disclaimer: Speech recognition software was utilized to dictate portions of this document. Errors in director of undergraduate admissions may be present. Please call / cortext [...] - 07/11/2024 5:44 PM EST Ana Chaparro Ben 07/08/2024 1945 79 y.o. [id number] Kwesi Guido, * INTERVAL HISTORY: No events [...] Results from last 7 days Lab Units 07/11/2462007/10/24 0516 07/09/24 0625 07/08/24 2030 07/08/24 1752 07/08/24 1110 SODIUM mmol/L 130* 133 131* 130* [...] 1551 07/11/24 1110 07/11/24 0817 07/11/24 0621 07/10/24 2033 POCT GLUCOSE mg/dL 259* 301* 191* -- [...] Signed Date: 07/10/2024 14:08 ET Workstation ID: [id number] Transcribed By: Self Edit Transcribed Date: 07/10/2024 [...] - pending clinical improvement HCP -Dr. Bowden [phone] Her son Paul was updated at bedside with her permission Health Care proxy with Phone number: Disclaimer: Speech recognition software was utilized to dictate portions of this document. Errors in director of undergraduate admissions may be present. Please call / cortext me if any questions. Portions of this note such ROS, Exam, Assessment and Plan were copy pasted from previous notes. Information was reviewed and changes were made accordingly. I agree with above mentioned information * Kwesi Guido MD - 07/11/2024 5:44 PM EST [facility] Provider Response Note PATIENT: ANA CONTRERAS : 1945 ADMIT DATE: 07/08/2024 2:44 PM DISCH DATE: RESPONDING PROVIDER #: [id number] PROVIDER RESPONSE TEXT: The patient has traumatic [...] Elmore OT - 07/11/2024 8:34 AM EST [facility] Occupational Therapy Evaluation DATE: Thursday July 11, 2024 TIME IN: 0730 TIME OUT: 0820 Pt: Ana Ben ROOM: 561/[facility]-2 Discharge Recommendation: [facility] facility Equipment Recommendation: walker Staff recommendations for [...] IADLs. OT Time Calculation OT Start Time: 0730 OT Stop Time: 0820 OT Time Calculation (min): 50 min History of Present Illness: Patient is a 79 y.o. female admitted to [facility] on 07/08/2024. Occupational Therapy evaluation and treatment ordered to assess ADL independence, safety, and functional mobility for discharge planning. Patient Active Problem List Diagnosis Hypertension Hyperlipidemia History of cancer of unknown primary site CKD (chronic kidney disease) stage 4, GFR 15-29 ml/min ([facility]) Iron deficiency anemia Impaired renal function Type 2 diabetes mellitus without complication, without long-term current use of insulin ([facility]) Lung mass Acute encephalopathy Past Medical History: Diagnosis Date Anemia Arthritis Blindness Decreased vision 11/29/2014 DX:Decreased vision Diabetes mellitus, type 2 ([facility]) 02/14/2014 DX:Diabetes mellitus, type [address]) Family history of early CAD 03/01/2014 [...] - Evaluation Status: Complete OT Discharge Recommendations: [facility] facility placement, Home OT Equipment Recommended: Walker-standard, [...] (Resolved) There are no resolved problems. Denisse Elmore OT [phone] * Liliana Booth RN - [...] within reach, bed alarm on. * Prisca Goldman, PT - 07/10/2024 2:37 PM EST [facility] Physical Therapy Evaluation & Treatment PT Discharge Recommendations: [facility] facility placement Staff Recommendations for safe patient [...] is a 79 y.o. female admitted to [facility] on 07/08/2024. Patient Active Problem List Diagnosis Hypertension Hyperlipidemia History of cancer of unknown primary site CKD (chronic kidney disease) stage 4, GFR 15-29 ml/min ([facility]) Iron deficiency anemia Impaired renal function Type 2 diabetes mellitus without complication, without long-term current use of insulin ([facility]) Lung mass Acute encephalopathy Past Medical History: Diagnosis Date Anemia Arthritis Blindness Decreased vision 11/29/2014 DX:Decreased vision Diabetes mellitus, type 2 ([facility]) 02/14/2014 DX:Diabetes mellitus, type 2 ([facility]) [...] of Steps: 3 Prior Function Level of [place]: Independent with mobility and functional transfers Ambulation [...] of Steps 3 Prior Function Level of [place] Independent with mobility and functional transfers Ambulation [...] Assessment Within Functional Limits RLE Assessment Comments 3/5 LLE Assessment LLE Assessment Within Functional Limits [...] 1 time per day PT Discharge Recommendations [facility] facility placement PT - Evaluation Status Complete [...] is a 79 y.o. female admitted to [facility] on 07/08/2024 for Hyponatremia [E87.1] Acute [...] listed above and optimize function. PT recommends [facility] facility placement when medically stable for safe discharge and to optimize functional mobility and independence. Goals Education Documentation Home Exercise Program, taught by Prisca Goldman PT at 07/10/2024 2:37 PM. Learner: Patient Readiness: Eager Method: Explanation, Demonstration Response: Verbalizes Understanding, Demonstrated Understanding Mobility Training, taught by Prisca Goldman PT at 07/10/2024 [...] a 79 y.o. female : 1945 MR#: [id number] SUBJECTIVE CC: Here with fall, RENE, hyponatremia [...] Signed Date: 07/09/2024 09:03 ET Workstation ID: [id number] Transcribed By: Self Edit Transcribed Date: 07/09/2024 [...] - pending clinical improvement HCP -Dr. Bowden [phone] -I met with her at the bedside on 07/09/24 and reviewed the plan. * Tarsha Corea RN - 07/09/2024 10:22 AM EST 07/09/24 1021 Initial Transition Plan Initial Transition Plan [facility] Back up Transition Plan Back up Transition plan Home Health Care Discharge Planning Living Arrangements Alone Type of Residence Private residence Assistive Devices Walker;Cane;Eyeglasses;Dentures upper Support Systems Extended family;Children Anticipated Discharge Needs Home Health RN;PT;OT Discipline following for SNF placement Geriatric Nursing Assistant ICC confirmed demographics w Dennise, daughter. Barriers: [...] a 79 y.o. female : 1945 MR#: [id number] SUBJECTIVE CC: Here with fall, RENE, hyponatremia [...] Signed Date: 07/08/2024 14:07 ET Workstation ID: [id number] Transcribed By: Self Edit Transcribed Date: 07/08/2024 [...] Signed Date: 07/08/2024 12:27 ET Workstation ID: [id number] Transcribed By: Self Edit Transcribed Date: 07/08/2024 [...] Signed Date: 07/08/2024 12:23 ET Workstation ID: [id number] Transcribed By: Self Edit Transcribed Date: 07/08/2024 [...] Dispo -pending clinical improvement HCP -Dr. Bowden [phone] -I met with her at the bedside [...] infectious concerns): [] Yes / [x] No Heel Seat Filler: [] Yes / [x] No If YES, Cardiac Rhythm: [] NSR, [] SB, [] ST, [] A-FIB, [] A-Flutter, [] Pacemaker, [] 1st Degree HB, [] 2nd Degree HB, [] 3rd Degree HB Reason for Heel Seat Filler: VS: Visit Vitals BP (!) 148/62 (BP [...] [place]: [place] [phone] * Michelle Christie RN - 07/08/2024 3:51 PM EST 07/08/24 1544 Initial Transition Plan Initial Transition Plan [facility] Back up Transition Plan Back up Transition plan Home Health Care Discharge Planning Contact (Name, Phone #, Relationship) for DC Planning Dennise Nj daughter [phone] Living Arrangements Alone Type of Residence Private residence (apartment with 6 steps to enter/no elevator) Assistive Devices Walker;Cane Support Systems Children;Extended family Medication Coverage Has Med Coverage Under Insurance Plan Yes Anticipated Discharge Needs Home Health PT;RN Discipline following for SNF placement Geriatric Nursing Assistant Patient lives alone in a first floor [...] for wide VNA and STR including: [facility] and placed in Epic. HCP completed and IM given as patient was subacute to inpatient status. States she was diagnosed in November or December 2023 for iron deficiency anemia and has become very weak. Plan transfer to floor. * Prisca Goldman, PT - 07/08/2024 1:48 PM EST Therapy [...] - 07/08/2024 10:32 AM EST Pt to [facility] via [facility]. Unwitnessed mechanical fall [...] REFLEX MICROSCOPIC AND CULTURE - Abnormal Specific [place] Urine 1.020 pH, Urine 5.5 Leukocytes, Urine [...] Procedure Abnormality Status --------- ------ CBC auto differential[[id number]] Abnormal Final result Please view results for these tests on the individual orders. TROPONIN I HIGH SENSITIVITY URINALYSIS WITH REFLEX MICROSCOPIC AND CULTURE Narrative: The following orders were created for panel order Urinalysis with reflex microscopic and culture. Procedure Abnormality Status --------- ------ Urinalysis with reflex ...[[id number]] Abnormal Final result Robertson urine culture tube[[id number]] In process Please view results for these [...] Signed Date: 07/08/2024 12:27 ET Workstation ID: [id number] Transcribed By: Self Edit Transcribed Date: 07/08/2024 12:[address] Head wo Contrast Final Result NO ACUTE INTRACRANIAL ABNORMALITY. -------- FINAL REPORT -------- Dictated By: GLENNA SOLITARIO Dictated Date: 07/08/2024 12:22 ET Assigned Physician: GLENNA SOLITARIO Reviewed and Electronically Signed By: GLENNA SOLITARIO Signed Date: 07/08/2024 12:23 ET Workstation ID: [id number] Transcribed By: Self Edit Transcribed Date: 07/08/2024 [...] cancer. Sees Dr. bryant. Rate awaiting on second Trope. EKG is unremarkable. Head neck CT unremarkable [...] - 08/05/2024 10:58 AM EST Plan for [facility] EBUS. Source Note - RYLEY Harris - 07/13/2024 10:28 AM EST Patient currently admitted to [facility] for RENE and anemia. Possible need for HD. Will cancel her ramiro bronch/EBUS scheduled 07/14/24 and reschedule in the next couple weeks. * RYLEY Rivas - 07/08/2024 3:39 PM EST Images from the original note were not included. SONYA HISTORY AND PHYSICAL Please contact author [RYLEY Rivas] via [employer]. Patient: Ana Contreras Admission Date/Time: 07/08/2024 10:31 [...] was found down on the ground by [facility]. She was unsure the details of [...] will be transferred to the care of [place] staff for further management of their acute encephalopathy, fall. Review of Systems Review of Systems 10 point review of systems negative as otherwise stated in the HPI MEDICAL HISTORY Past Medical History Past Medical History: Diagnosis Date ??? Anemia ??? Arthritis ??? Blindness ??? Decreased vision 11/29/2014 DX:Decreased vision ??? Diabetes mellitus, type 2 ([facility]) 02/14/2014 DX:Diabetes mellitus, type [address]) ??? Family history of early CAD 03/01/2014 [...] Signed Date: 07/08/2024 14:07 ET Workstation ID: [id number] Transcribed By: Self Edit Transcribed Date: 07/08/2024 14:[address] Cervical Spine wo Contrast Final Result No acute cervical spine fracture. -------- FINAL REPORT -------- Dictated By: GLENNA SOLITARIO Dictated Date: 07/08/2024 12:24 ET Assigned Physician: GLENNA SOLITARIO Reviewed and Electronically Signed By: GLENNA SOLITARIO Signed Date: 07/08/2024 12:27 ET Workstation ID: [id number] Transcribed By: Self Edit Transcribed Date: 07/08/2024 12:[address] Head wo Contrast Final Result NO ACUTE INTRACRANIAL ABNORMALITY. -------- FINAL REPORT -------- Dictated By: GLENNA SOLITARIO Dictated Date: 07/08/2024 12:22 ET Assigned Physician: GLENNA SOLITARIO Reviewed and Electronically Signed By: GLENNA SOLITARIO Signed Date: 07/08/2024 12:23 ET Workstation ID: [id number] Transcribed By: Self Edit Transcribed Date: 07/08/2024 [...] onward) Start Ordered 07/08/24 1438 Adult diet [facility]; General; Regular Diet effective now Question Answer Comment Location [facility] Diet Type (req) General General Diet Regular 07/08/24 1444 [x] Lines, tubes, drains: IV access [x] Medication reconciliation Health Care proxy with Phone number Dennise Nj daughter [phone] Cosigned by Wayne Donahue MD at 07/15/2024 [...] L4, and 11R. Surgeon: Cecily Montez MD Print Graphic Designer: None Specimens: Above for pathology/cytology/microbiology Anesthesia: General [...] the appropriate places and confirmed with the veriCAR dimension software. At this point, a timeout was [...] Insertion of 18g/10cm Bard Powerglide midline Lot: [id number] Exp: 2025-05-28 Indications: Difficult draw with frequent [...] Fela Palomo MD Staff Role Emilie Silva Director Of Student Financial Aid Dorothea Garay Director Of Student Financial Aid Lay Roth Director Of Student Financial Aid Diaz Denise, ILIR CV Invasive Nurse Fela [...] in this encounter Consult Notes * Kayleigh Laguna, RD - 07/11/2024 11:22 AM ESTAssociated Order(s): [...] onward) Start Ordered 07/08/24 1438 Adult diet [facility]; General; Regular Diet effective now Question Answer Comment Location [facility] Diet Type (req) General General Diet Regular 07/08/24 1444 History of presenting illness: Patient is a [...] at home. No noted food allergies. Appetite AGRICULTURAL EXTENSION EDUCATOR: Poor Intake AGRICULTURAL EXTENSION EDUCATOR: Decreased Weight History: Wt Readings from Last [...] stable between 168-178 lb over past year ([id number] lb). Weight in 12/2022 was 184 lb indicating 10 lb (5.4%) weight loss over course of 18 months. Subjective Assessment: Pt seen for nutrition consult/ high MST score. Pt admitted for fall, RENE and hyponatremia. Pt recently diagnosed with lung nodule with planned bronchoscopy and EBUS. Seen by OT and PT- [facility]. 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 Family History Problem Relation Name Age of [...] days Lab Units 07/10/24 0516 07/09/24 0625 07/08/242029 WBC AUTO K/mcL 16.9* 18.4* 20.5* HEMOGLOBIN g/dL 7.6* 8.3* 9.2* HEMATOCRIT % 24.4* 26.1* 30.0* PLATELETS K/mcL 277 333 332 CMP Results from last 7 days Lab Units 07/10/24 1611 07/10/24 0840 07/10/24 0516 07/09/24 0859 07/09/24 0625 07/08/24204507/08/242029 SODIUM mmol/L -- -- 133 -- 131* [...] should gradually improve, can get input from metal window screen assembler, please call me for an y question documented in this encounter Plan of Treatment Upcoming Encounters Date Type Department Care Team (Late st Contact Info) Description 08/10/2024 10:00 AM EST Office Visit [facility] Hematology Oncology [address] [place] [phone] Jaime Bryant MD [address] [place] [address] 08/15/2024 1:30 PM EST Office Visit Thoracic Surgery - [place] [address] [facility] [address] [place] [address] Cecily Montez MD 299 [facility] [address] [place] [address] 08/23/2024 3:00 PM EST Office Visit Gastroenterology - [address] [facility] [address] [place] [address] Josiane Smiht NP [address] [address] 08/24/2024 11:15 AM EST Office Visit Internal Medicine - [address] [phone] Eloisa Vázquez DO [address] [place] [address] 09/05/2024 10:00 AM EDT Office Visit Endocrinology - [place] [address] [place] [address] Kathy Michelle PA [address] [place] [address] 09/06/2024 11:00 AM EDT Ancillary Procedure [facility] - [facility] [address] [facility] [address] [place] [address] 01/24/2025 1:30 PM EDT Consult Nephrology - [address] [phone] Chencho Wayne MD 100 [facility] [address] [place] [phone] Pending Results Name Type Priority Associated Diagnoses [...] nodule ACID FAST BACILLI STAIN Routine 08/05/19 25 12:32 PM EST Pulmonary nodule BASIC METABOLIC [...] 07/15/2024 3:36 PM EST HEMODIALYSIS INPATIENT Routine 3:13 PM EST POCT GLUCOSE BLOOD Routine [...] BLOOD Routine 07/11/2024 8: 17 AM EST [place] IMMUNOFIXATION ELECTROPHORESIS SERUM Routine 07/11/2024 6:21 AM [...] BLOOD Routine 07/08/2024 6: 19 PM EST [place] PROTEIN ELECTROPHORETIC FRACTIONATION & QUANTITATION SERUM Routine [...] - 100 mg/dL 08/06/2024 11:09 AM EST [facility] Blood Capillary blood specimen / Unknown 08/06/2024 11:07 AM EST 08/06/2024 11:10 AM EST us Steve Cruz MD LAB POINT OF CA RE TEST DOCKED DEVICE UNSOLICITED RESULTS Final Result Performing Organization Address City/[facility]/ZIP Co de Phone Number [facility] [address] [place] [address], [place] [phone] * (ABNORMAL) POCT Glucose, blood (08/06/2024 7:26 AM EST) Glucose POCT 66(L) 70 - 100 mg/dL 08/06/2024 7:27 AM EST [facility] Blood Capillary blood specimen / Unknown 08/06/2024 7:26 AM EST 08/06/2024 7:28 AM EST us Steve Cruz MD LAB POINT OF CA RE TEST DOCKED DEVICE UNSOLICITED RESULTS Final Result Performing Organization Address City/[facility] Co de Phone Number [facility] [address] [place] [address], [place] [phone] * (ABNORMAL) POCT Glucose, blood (08/05/2024 8:08 PM EST) Glucose POCT 263(H) 70 - 100 mg/dL 08/05/2024 8:08 PM EST [facility] Blood Capillary blood specimen / Unknown 08/05/2024 8:08 PM EST 08/05/2024 8:09 PM EST us Steve Cruz MD LAB POINT OF CA RE TEST DOCKED DEVICE UNSOLICITED RESULTS Final Result Performing Organization Address City/[facility]/ZIP Co de Phone Number [facility] [address] [place] [address], [place] [phone] * (ABNORMAL) POCT Glucose, blood (08/05/2024 4:40 PM EST) Glucose POCT 270(H) 70 - 100 mg/dL 08/05/2024 4:42 PM EST [facility] Blood Capillary blood specimen / Unknown 08/05/2024 4:40 PM EST 08/05/2024 4:43 PM EST Steve Cruz MD LAB POINT OF CA RE TEST DOCKED DEVICE UNSOLICITED RESULTS Final Result [facility] [address] [place] [address], [place] [phone] * XR Chest 1 View (08/05/2024 1:43 [...] Signed Date: 08/05/2024 13:49 ET Workstation ID: [id number] Transcribed By: Self Edit Transcribed Date: 08/05/2024 [...] Signed Date: 08/05/2024 13:49 ET Workstation ID: [id number] Transcribed By: Self Edit Transcribed Date: 08/05/2024 13:46 ET Cecily Montez MD IMG XR PROCEDURES Final Result * (ABNORMAL) POCT Glucose, blood (08/05/2024 1:40 PM EST) Glucose POCT 148(H) 70 - 100 mg/dL 08/05/2024 1:41 PM EST [facility] Blood Capillary blood specimen / Unknown 08/05/2024 1:40 PM EST 08/05/2024 1:42 PM EST Steve Cruz MD LAB POINT OF CA RE TEST DOCKED DEVICE UNSOLICITED RESULTS Final Result [facility] [address] [place] [address], [place] [phone] * Concentration (08/05/2024 12:32 PM EST) AFB Concentration Performed 025 3:05 PM EST [facility] Structure of upper lobe of right lung / Unknown 08/05/2024 12:32 PM EST 08/05/2024 1:17 PM EST Narrative [facility] - 08/06/2024 3:05 PM EST Performed at: ??01 - [facility] [address] ??[id number] Target Trimmer: Diane Belle MD, Phone: ??[phone] Cecily Montez MD LAB BLOOD ORDERABLES Final Resul t [facility] * Acid fast bacilli stain (08/05/2024 12:32 PM EST) AFB Stain Result No Acid fast bacilli seen on direct smear (Fuchsin method, 1000x) No Acid Fast Bacilli seen on direct smear 08/05/2024 2:18 PM [facility] Wash Structure of upper lobe of right lung / Unknown 08/05/2024 12:32 PM EST 08/05/2024 1:17 PM EST us Cecily Montez MD LAB MICROBIOLOGY - GENERAL ORDER SYLVAIN Final Result [facility] [address] [place] [address], [place] [phone] * (ABNORMAL) Basic metabolic panel (08/05/2024 7:04 AM EST) Sodium 133 133 - 145 mmol/L LAB CHEMISTRY METHOD 08/05/2024 8:01 AM [facility] Potassium 4.5 3.5 - 5.5 mmol/L LAB CHEMISTRY METHOD 08/05/2024 8:01 AM [facility] Chloride 96 96 - 110 mmol/L LAB CHEMISTRY METHOD 08/05/2024 8:01 AM [facility] CO2 32 21 - 32 mmol/L LAB CHEMISTRY METHOD 08/05/2024 8:01 AM [facility] Anion Gap 5 3 - 11 LAB CHEMISTRY METHOD 08/05/2024 8:01 AM [facility] Glucose 138(H) 70 - 100 mg/dL LAB CHEMISTRY METHOD 08/05/2024 8:01 AM [facility] BUN 53(H) 5 - 25 mg/dL LAB CHEMISTRY METHOD 08/05/2024 8:01 AM [facility] Creatinine 3.91(H) 0.50 - 1.10 mg/dL LAB CHEMISTRY METHOD 08/05/2024 8:01 AM [facility] eGFR 11(L) >=60 mL/min/1. 73m2 LAB CHEMISTRY METHOD 08/05/2024 8:01 AM [facility] Comment:Calculation based on the??Chronic Kidney Disease Epidemiology Collaboration (CKD-EPI) equation refit??without adjustment for race. BUN/Creatinine Ratio 13.6 LAB CHEMISTRY METHOD 08/05/2024 8:01 AM [facility] Calcium 8.4(L) 8.5 - 10.5 mg/dL LAB CHEMISTRY METHOD 08/05/2024 8:01 AM [facility] Blood Venous blood specimen / Unknown Venipuncture / Unknown 08/05/2024 7:04 AM EST 08/05/2024 7:34 AM EST Steve Cruz MD LAB BLOOD ORDERABLES Fi nal Result [facility] [address] [place] [address], * (ABNORMAL) CBC - Every 3 Days (08/05/2024 7:03 AM EST) WBC 8.8 4.8 - 10.8 K/mcL LAB HEMETOLOGY METHOD 08/05/2024 7:42 AM [facility] RBC 2.90(L) 3.80 - 4.80 M/mcL LAB HEMETOLOGY METHOD 08/05/2024 7:42 AM [facility] Hemoglobin 7.9(L) 11.5 - 16.0 g/dL LAB HEMETOLOGY METHOD 08/05/2024 7:42 AM [facility] Hematocrit 25.5(L) 35.0 - 47.0 % LAB HEMETOLOGY METHOD 08/05/2024 7:42 AM [facility] MCV 87.6 79.0 - 98.0 FL LAB HEMETOLOGY METHOD 08/05/2024 7:42 AM EST [facility] MCH 27.1 27.0 - 32.0 pcg LAB HEMETOLOGY METHOD 08/05/2024 7:42 AM [facility] MCHC 31.0(L) 32.0 - 37.0 g/dL LAB HEMETOLOGY METHOD 08/05/2024 7:42 AM [facility] RDW 21.9(H) 11.0 - 15.0 % LAB HEMETOLOGY METHOD 08/05/2024 7:42 AM [facility] Platelets 180 130 - 400 K/mcL LAB HEMETOLOGY METHOD 08/05/2024 7:42 AM [facility] MPV 10.8 7.0 - 11.0 FL LAB HEMETOLOGY METHOD 08/05/2024 7:42 AM [facility] NRBC 0.0 <1.0 % LAB HEMETOLOGY METHOD 08/05/2024 7:42 AM [facility] NRBC Absolute 0.00 <0.10 K/mcL LAB HEMETOLOGY METHOD 08/05/2024 7:42 AM [facility] Blood Venous blood specimen / Unknown Venipuncture / Unknown 08/05/2024 7:03 AM EST 08/05/2024 7:34 AM EST us Estdimas Stuart MD LAB BLOOD ORDERABLES Final R esult [facility] [address] [place] [address], * (ABNORMAL) POCT Glucose, blood (08/04/2024 8:39 PM EST) Pathologist [facility] Glucose POCT 352(H) 70 - 100 mg/dL 08/04/2024 8:40 PM EST [facility] Blood Capillary blood specimen / Unknown 08/04/2024 8:39 PM EST 08/04/2024 8:41 PM EST us Steve Cruz MD LAB POINT OF CA RE TEST DOCKED DEVICE UNSOLICITED RESULTS Final Result Performing Organization Address [facility]/ZIP Co de Phone Number [facility] [address] [place] [address], [place] [phone] * (ABNORMAL) POCT Glucose, blood (08/04/2024 5:36 PM EST) Glucose POCT 376(H) 70 - 100 mg/dL 08/04/2024 5:37 PM EST [facility] Blood Capillary blood specimen / Unknown 08/04/2024 5:36 PM EST 08/04/2024 5:38 PM EST us Steve Cruz MD LAB POINT OF CA RE TEST DOCKED DEVICE UNSOLICITED RESULTS Final Result Performing Organization Address [facility]/ZIP Co de Phone Number [facility] [address] [place] [address], [place] [phone] * (ABNORMAL) POCT Glucose, blood (08/04/2024 11:05 AM EST) Glucose POCT 130(H) 70 - 100 mg/dL 08/04/2024 11:07 AM EST [facility] Blood Capillary blood specimen / Unknown 08/04/2024 11:05 AM EST 08/04/2024 11:08 AM EST us Steve Cruz MD LAB POINT OF CA RE TEST DOCKED DEVICE UNSOLICITED RESULTS Final Result Performing Organization Address City/[facility]/ZIP Co de Phone Number [facility] [address] [place] [address], [place] [phone] * (ABNORMAL) POCT Glucose, blood (08/04/2024 8:03 AM EST) Glucose POCT 116(H) 70 - 100 mg/dL 08/04/2024 8:05 AM EST [facility] Blood Capillary blood specimen / Unknown 08/04/2024 8:03 AM EST 08/04/2024 8:07 AM EST Steve Cruz MD LAB POINT OF CA RE TEST DOCKED DEVICE UNSOLICITED RESULTS Final Result Performing Organization Address [facility]/ZIP Co de Phone Number [facility] [address] [place] [address], * (ABNORMAL) Creatinine, Serum - Every 7 Days (08/04/2024 6:31 AM EST) [facility] Signature Creatinine 2.49(H) 0.50 - 1.10 mg/dL LAB CHEMISTRY METHOD 08/04/2024 7:31 AM EST [facility] eGFR 19(L) >=60 mL/min/1. 73m2 LAB CHEMISTRY METHOD 08/04/2024 7:31 AM EST [facility] Comment:Calculation based on the??Chronic Kidney Disease Epidemiology Collaboration (CKD-EPI) equation refit??without adjustment for race. Blood Venous blood specimen / Unknown Venipuncture / Unknown 08/04/2024 6:31 AM EST 08/04/2024 6:54 AM EST Jonny Mathur MD LAB BLOOD ORDERABLES Final Re sult [facility] [address] [place] [address], [place] [phone] * (ABNORMAL) POCT Glucose, blood (08/03/2024 9:59 PM EST) Glucose POCT 135(H) 70 - 100 mg/dL 08/03/2024 9:59 PM EST [facility] Blood Capillary blood specimen / Unknown 08/03/2024 9:59 PM EST 08/03/2024 10:00 PM EST us Steve Cruz MD LAB POINT OF CA RE TEST DOCKED DEVICE UNSOLICITED RESULTS Final Result Performing Organization Address [facility]/ZIP Co de Phone Number [facility] [address] [place] [address], [place] [phone] * (ABNORMAL) POCT Glucose, blood (08/03/2024 3:47 PM EST) Glucose POCT 304(H) 70 - 100 mg/dL 08/03/2024 3:48 PM EST [facility] Blood Capillary blood specimen / Unknown 08/03/2024 3:47 PM EST 08/03/2024 3:49 PM EST us Steve Cruz MD LAB POINT OF CA RE TEST DOCKED DEVICE UNSOLICITED RESULTS Final Result Performing Organization Address [facility] Co de Phone Number [facility] [address] [place] [address], [place] [phone] * (ABNORMAL) POCT Glucose, blood (08/03/2024 12:35 PM EST) Glucose POCT 125(H) 70 - 100 mg/dL 08/03/2024 12:59 PM EST [facility] Blood Capillary blood specimen / Unknown 08/03/2024 12:35 PM EST 08/03/2024 1:00 PM EST us Steve Cruz MD LAB POINT OF CA RE TEST DOCKED DEVICE UNSOLICITED RESULTS Final Result Performing Organization Address [facility]/ZIP Co de Phone Number [facility] [address] [place] [address], [place] [phone] * Hepatitis B surface antigen with reflex to confirmation (08/03/2024 8:49 AM EST) Hepatitis B Surface Ag Negative Negative LAB CHEMISTRY METHOD 08/03/2024 10:11 AM EST [facility] Blood Venous blood specimen / Unknown Venipuncture / Unknown 08/03/2024 8:49 AM EST 08/03/2024 9:22 AM EST [facility] - 08/03/2024 10:11 AM EST Over the counter supplements containing high doses of biotin may interfere with this assay. ??If interference is suspected, patients shoud be retested after refraining from biotin supplements for 72 hours. us Steve Cruz MD LAB BLOOD ORDERABLES Fi nal Result Performing Organization Address [facility] de Phone Number [facility] [address] [place] [address], * Hepatitis B surface antibody quantitative (08/03/2024 8:49 AM EST) Pathologist [facility] Hepatitis B Surface Ab Negative Negative LAB CHEMISTRY METHOD 08/03/2024 9:59 AM EST [facility] Hepatitis B Surface Ab Quantitative <3.1 mIU/mL LAB CHEMISTRY METHOD 08/03/2024 9:59 AM EST [facility] Blood Venous blood specimen / Unknown Venipuncture / Unknown 08/03/2024 8:49 AM EST 08/03/2024 9:22 AM EST [facility] - 08/03/2024 9:59 AM EST >=10 mIU/mL is considered to be consistent with immunity. us Steve Cruz MD LAB BLOOD ORDERABLES Fi nal Result Performing Organization Address [facility] Co de Phone Number [facility] [address] [place] [address], * (ABNORMAL) Complete blood count (08/03/2024 8:49 AM EST) [facility] WBC 8.5 4.8 - 10.8 K/mcL LAB HEMETOLOGY METHOD 08/03/2024 9:28 AM [facility] RBC 2.90(L) 3.80 - 4.80 M/mcL LAB HEMETOLOGY METHOD 08/03/2024 9:28 AM [facility] Hemoglobin 7.7(L) 11.5 - 16.0 g/dL LAB HEMETOLOGY METHOD 08/03/2024 9:28 AM [facility] Hematocrit 24.6(L) 35.0 - 47.0 % LAB HEMETOLOGY METHOD 08/03/2024 9:28 AM [facility] MCV 84.2 79.0 - 98.0 FL LAB HEMETOLOGY METHOD 08/03/2024 9:28 AM [facility] MCH 26.4(L) 27.0 - 32.0 pcg LAB HEMETOLOGY METHOD 08/03/2024 9:28 AM [facility] MCHC 31.3(L) 32.0 - 37.0 g/dL LAB HEMETOLOGY METHOD 08/03/2024 9:28 AM [facility] RDW 21.8(H) 11.0 - 15.0 % LAB HEMETOLOGY METHOD 08/03/2024 9:28 AM [facility] Platelets 186 130 - 400 K/mcL LAB HEMETOLOGY METHOD 08/03/2024 9:28 AM [facility] MPV 10.5 7.0 - 11.0 FL LAB HEMETOLOGY METHOD 08/03/2024 9:28 AM [facility] NRBC 0.0 <1.0 % LAB HEMETOLOGY METHOD 08/03/2024 9:28 AM [facility] NRBC Absolute 0.00 <0.10 K/mcL LAB HEMETOLOGY METHOD 08/03/2024 9:28 AM [facility] Blood Venous blood specimen / Unknown Venipuncture / Unknown 08/03/2024 8:49 AM EST 08/03/2024 9:22 AM EST Steve Cruz MD LAB BLOOD ORDERABLES Fi nal Result [facility] [address] [place] [address], * (ABNORMAL) CBC auto differential (08/03/2024 6:01 AM EST) WBC 7.5 4.8 - 10.8 K/mcL LAB HEMETOLOGY METHOD 08/03/2024 7:49 AM [facility] RBC 2.90(L) 3.80 - 4.80 M/mcL LAB HEMETOLOGY METHOD 08/03/2024 7:49 AM [facility] Hemoglobin 7.8(L) 11.5 - 16.0 g/dL LAB HEMETOLOGY METHOD 08/03/2024 7:49 AM [facility] Hematocrit 24.7(L) 35.0 - 47.0 % LAB HEMETOLOGY METHOD 08/03/2024 7:49 AM [facility] MCV 85.8 79.0 - 98.0 FL LAB HEMETOLOGY METHOD 08/03/2024 7:49 AM [facility] MCH 27.1 27.0 - 32.0 pcg LAB HEMETOLOGY METHOD 08/03/2024 7:49 AM [facility] MCHC 31.6(L) 32.0 - 37.0 g/dL LAB HEMETOLOGY METHOD 08/03/2024 7:49 AM [facility] RDW 21.6(H) 11.0 - 15.0 % LAB HEMETOLOGY METHOD 08/03/2024 7:49 AM [facility] Platelets 188 130 - 400 K/mcL LAB HEMETOLOGY METHOD 08/03/2024 7:49 AM [facility] MPV 11.2(H) 7.0 - 11.0 FL LAB HEMETOLOGY METHOD 08/03/2024 7:49 AM [facility] NRBC 0.0 <1.0 % LAB HEMETOLOGY METHOD 08/03/2024 7:49 AM [facility] NRBC Absolute 0.00 <0.10 K/mcL LAB HEMETOLOGY METHOD 08/03/2024 7:49 AM [facility] Neutrophils Relative 77.2 % LAB HEMETOLOGY METHOD 08/03/2024 7:49 AM [facility] Lymphocytes Relative 12.8 % LAB HEMETOLOGY METHOD 08/03/2024 7:49 AM [facility] Monocytes Relative 8.0 % LAB HEMETOLOGY METHOD 08/03/2024 7:49 AM [facility] Eosinophils Relative 0.4 % LAB HEMETOLOGY METHOD 08/03/2024 7:49 AM [facility] Basophils Relative 0.1 % LAB HEMETOLOGY METHOD 08/03/2024 7:49 AM [facility] Immature Granulocytes Relative 1.5 % LAB HEMETOLOGY METHOD 08/03/2024 7:49 AM [facility] Neutrophils Absolute 5.78 1.50 - 7.00 K/mcL LAB HEMETOLOGY METHOD 08/03/2024 7:49 AM [facility] Lymphocytes Absolute 0.96(L) 1.00 - 5.00 K/mcL LAB HEMETOLOGY METHOD 08/03/2024 7:49 AM [facility] Monocytes Absolute 0.60 0.20 - 1.00 K/mcL LAB HEMETOLOGY METHOD 08/03/2024 7:49 AM EST [facility] Eosinophils Absolute 0.03 0.00 - 0.50 K/[facility] LAB HEMETOLOGY METHOD 08/03/2024 7:49 AM EST [facility] Basophils Absolute 0.01 0.00 - 0.20 K/[facility] LAB HEMETOLOGY METHOD 08/03/2024 7:49 AM EST [facility] Immature Granulocytes Absolute 0.11(H) 0.00 - 0.03 K/[facility] LAB HEMETOLOGY METHOD 08/03/2024 7:49 AM EST [facility] Blood Venous blood specimen / Unknown Venipuncture / Unknown 08/03/2024 6:01 AM EST 08/03/2024 7:27 AM EST Steve Cruz MD LAB BLOOD ORDERABLES Fi nal Result Performing Organization Address City/[facility]/ZIP Co de Phone Number [facility] [address] [place] [address], [place] [phone] * Magnesium (08/03/2024 6:01 AM EST) Magnesium 2.1 1.9 - 2.6 mg/dL LAB CHEMISTRY METHOD 08/03/2024 8:11 AM EST [facility] Blood Venous blood specimen / Unknown Venipuncture / Unknown 08/03/2024 6:01 AM EST 08/03/2024 7:27 AM EST Steve Cruz MD LAB BLOOD ORDERABLES Fi nal Result [facility] [address] [place] [address], * Phosphorus (08/03/2024 6:01 AM EST) Phosphorus 4.3 2.5 - 4.5 mg/dL LAB CHEMISTRY METHOD 08/03/2024 8:11 AM EST [facility] Blood Venous blood specimen / Unknown Venipuncture / Unknown 08/03/2024 6:01 AM EST 08/03/2024 7:27 AM EST us Steve Cruz MD LAB BLOOD ORDERABLES Fi nal Result Performing Organization Address [facility]/ZIP Co de Phone Number [facility] [address] [place] [address], [place] [phone] * (ABNORMAL) POCT Glucose, blood (08/02/2024 7:33 PM EST) Glucose POCT 241(H) 70 - 100 mg/dL 08/02/2024 7:34 PM EST [facility] Blood Capillary blood specimen / Unknown 08/02/2024 7:33 PM EST 08/02/2024 7:35 PM EST us Steve Cruz MD LAB POINT OF CA RE TEST DOCKED DEVICE UNSOLICITED RESULTS Final Result Performing Organization Address [facility] Co de Phone Number [facility] [address] [place] [address], [place] [phone] * (ABNORMAL) POCT Glucose, blood (08/02/2024 4:27 PM EST) Glucose POCT 212(H) 70 - 100 mg/dL 08/02/2024 4:29 PM EST [facility] Blood Capillary blood specimen / Unknown 08/02/2024 4:27 PM EST 08/02/2024 4:29 PM EST us Steve Cruz MD LAB POINT OF CA RE TEST DOCKED DEVICE UNSOLICITED RESULTS Final Result Performing Organization Address City/[facility]/ZIP Co de Phone Number [facility] [address] [place] [address], [place] [phone] * Type and screen (08/02/2024 3:04 PM EST) ABO Group O 08/02/2024 4:52 PM [facility] Rh Type Positive 08/02/2024 4:52 PM [facility] Antibody Screen Negative 08/02/2024 4:52 PM [facility] Blood Venous blood specimen / Unknown Venipuncture / Unknown 08/02/2024 3:04 PM EST 08/02/2024 4:07 PM EST Steve Cruz MD LAB BLOOD BANK TEST ORD ERABLES Final Result [facility] [address] [place] [address], * Prepare RBC: 1 Units (08/02/2024 2:09 PM EST) Product Code [id number] 08/02/2024 6:27 PM [facility] Unit Number [id number] 08/02/19 6:27 PM [facility] Crossmatch Compatible 08/02/2024 5:03 PM [facility] Dispense Status Transfused 08/02/2024 6:27 PM [facility] Unit ABO Rh OPOS 08/02/2024 6:27 PM [facility] Unit Expiration Date Time [id number] 08/02/2024 6:27 PM [facility] Unit Blood Type 5100 08/02/2024 6:27 PM [facility] Blood Venous blood specimen / Unknown 08/02/2024 2:09 PM EST 08/02/2024 4:07 PM EST us Steve Cruz MD BLOOD BANK PRODUCT ORDE JACEY Final Result Performing Organization Address [facility] Co de Phone Number [facility] [address] [place] [address], [place] [phone] * (ABNORMAL) POCT Glucose, blood (08/02/2024 11:26 AM EST) Glucose POCT 153(H) 70 - 100 mg/dL 08/02/2024 11:41 AM EST [facility] Blood Capillary blood specimen / Unknown 08/02/2024 11:26 AM EST 08/02/2024 11:43 AM EST us Steve Cruz MD LAB POINT OF CA RE TEST DOCKED DEVICE UNSOLICITED RESULTS Final Result Performing Organization Address [facility]/ZIP Co de Phone Number [facility] [address] [place] [address], [place] [phone] * POCT Glucose, blood (08/02/2024 7:46 AM EST) [facility] Signature Glucose POCT 90 70 - 100 mg/dL 08/02/2024 7:46 AM EST [facility] Blood Capillary blood specimen / Unknown 08/02/2024 7:46 AM EST 08/02/2024 7:48 AM EST us Steve Cruz MD LAB POINT OF CA RE TEST DOCKED DEVICE UNSOLICITED RESULTS Final Result Performing Organization Address City/[facility]/ZIP Co de Phone Number [facility] [address] [place] [address], [place] [phone] * (ABNORMAL) CBC - Every 3 Days (08/02/2024 6:06 AM EST) WBC 8.0 4.8 - 10.8 K/[facility] LAB HEMETOLOGY METHOD 08/02/2024 7:45 AM [facility] RBC 2.70(L) 3.80 - 4.80 M/mcL LAB HEMETOLOGY METHOD 08/02/2024 7:45 AM [facility] Hemoglobin 7.0(L) 11.5 - 16.0 g/dL LAB HEMETOLOGY METHOD 08/02/2024 7:45 AM [facility] Hematocrit 22.9(L) 35.0 - 47.0 % LAB HEMETOLOGY METHOD 08/02/2024 7:45 AM [facility] MCV 84.2 79.0 - 98.0 FL LAB HEMETOLOGY METHOD 08/02/2024 7:45 AM [facility] MCH 25.7(L) 27.0 - 32.0 pcg LAB HEMETOLOGY METHOD 08/02/2024 7:45 AM [facility] MCHC 30.6(L) 32.0 - 37.0 g/dL LAB HEMETOLOGY METHOD 08/02/2024 7:45 AM [facility] RDW 23.4(H) 11.0 - 15.0 % LAB HEMETOLOGY METHOD 08/02/2024 7:45 AM [facility] Platelets 205 130 - 400 K/mcL LAB HEMETOLOGY METHOD 08/02/2024 7:45 AM [facility] MPV 11.0 7.0 - 11.0 FL LAB HEMETOLOGY METHOD 08/02/2024 7:45 AM [facility] NRBC 0.0 <1.0 % LAB HEMETOLOGY METHOD 08/02/2024 7:45 AM [facility] NRBC Absolute 0.00 <0.10 K/mcL LAB HEMETOLOGY METHOD 08/02/2024 7:45 AM [facility] Blood Venous blood specimen / Unknown Venipuncture / Unknown 08/02/2024 6:06 AM EST 08/02/2024 7:23 AM EST us Lencho Stuart MD LAB BLOOD ORDERABLES Final R esult Performing Organization Address [facility]/ZIP Co de Phone Number [facility] [address] [place] [address], [place] [phone] * (ABNORMAL) POCT Glucose, blood (08/01/2024 7:43 PM EST) Glucose POCT 209(H) 70 - 100 mg/dL 08/01/2024 7:44 PM EST [facility] Blood Capillary blood specimen / Unknown 08/01/2024 7:43 PM EST 08/01/2024 7:44 PM EST us Steve Cruz MD LAB POINT OF CA RE TEST DOCKED DEVICE UNSOLICITED RESULTS Final Result Performing Organization Address [facility] Co de Phone Number [facility] [address] [place] [address], [place] [phone] * (ABNORMAL) POCT Glucose, blood (08/01/2024 5:20 PM EST) Glucose POCT 168(H) 70 - 100 mg/dL 08/01/2024 5:21 PM EST [facility] Blood Capillary blood specimen / Unknown 08/01/2024 5:20 PM EST 08/01/2024 5:22 PM EST us Steve Cruz MD LAB POINT OF CA RE TEST DOCKED DEVICE UNSOLICITED RESULTS Final Result Performing Organization Address City/[facility]/ZIP Co de Phone Number [facility] [address] [place] [address], [place] [phone] * (ABNORMAL) POCT Glucose, blood (08/01/2024 11:03 AM EST) Glucose POCT 149(H) 70 - 100 mg/dL 08/01/2024 11:03 AM EST [facility] Blood Capillary blood specimen / Unknown 08/01/2024 11:03 AM EST 08/01/2024 11:04 AM EST us Steve Cruz MD LAB POINT OF CA RE TEST DOCKED DEVICE UNSOLICITED RESULTS Final Result [facility] [address] [place] [address], [place] [phone] * (ABNORMAL) POCT Glucose, blood (08/01/2024 8:59 AM EST) Glucose POCT 128(H) 70 - 100 mg/dL 08/01/2024 9:01 AM EST [facility] Blood Capillary blood specimen / Unknown 08/01/2024 8:59 AM EST 08/01/2024 9:02 AM EST us Steve Cruz MD LAB POINT OF CA RE TEST DOCKED DEVICE UNSOLICITED RESULTS Final Result Performing Organization Address City/[facility]/ZIP Co de Phone Number [facility] [address] [place] [address], [place] [phone] * POCT Glucose, blood (08/01/2024 7:34 AM EST) Glucose POCT 75 70 - 100 mg/dL 08/01/2024 7:35 AM EST [facility] Blood Capillary blood specimen / Unknown 08/01/2024 7:34 AM EST 08/01/2024 7:36 AM EST us Steve Cruz MD LAB POINT OF CA RE TEST DOCKED DEVICE UNSOLICITED RESULTS Final Result [facility] [address] [place] [address], * (ABNORMAL) CBC auto differential (08/01/2024 6:59 AM EST) [facility] WBC 9.2 4.8 - 10.8 K/mcL LAB HEMETOLOGY METHOD 08/01/2024 8:20 AM [facility] RBC 3.00(L) 3.80 - 4.80 M/mcL LAB HEMETOLOGY METHOD 08/01/2024 8:20 AM [facility] Hemoglobin 7.7(L) 11.5 - 16.0 g/dL LAB HEMETOLOGY METHOD 08/01/2024 8:20 AM [facility] Hematocrit 25.2(L) 35.0 - 47.0 % LAB HEMETOLOGY METHOD 08/01/2024 8:20 AM [facility] MCV 84.6 79.0 - 98.0 FL LAB HEMETOLOGY METHOD 08/01/2024 8:20 AM [facility] MCH 25.8(L) 27.0 - 32.0 pcg LAB HEMETOLOGY METHOD 08/01/2024 8:20 AM [facility] MCHC 30.6(L) 32.0 - 37.0 g/dL LAB HEMETOLOGY METHOD 08/01/2024 8:20 AM [facility] RDW 23.5(H) 11.0 - 15.0 % LAB HEMETOLOGY METHOD 08/01/2024 8:20 AM [facility] Platelets 220 130 - 400 K/mcL LAB HEMETOLOGY METHOD 08/01/2024 8:20 AM [facility] MPV 11.3(H) 7.0 - 11.0 FL LAB HEMETOLOGY METHOD 08/01/2024 8:20 AM [facility] NRBC 0.0 <1.0 % LAB HEMETOLOGY METHOD 08/01/2024 8:20 AM [facility] NRBC Absolute 0.00 <0.10 K/mcL LAB HEMETOLOGY METHOD 08/01/2024 8:20 AM [facility] Neutrophils Relative 77.4 % LAB HEMETOLOGY METHOD 08/01/2024 8:20 AM [facility] Lymphocytes Relative 12.6 % LAB HEMETOLOGY METHOD 08/01/2024 8:20 AM [facility] Monocytes Relative 7.6 % LAB HEMETOLOGY METHOD 08/01/2024 8:20 AM [facility] Eosinophils Relative 0.9 % LAB HEMETOLOGY METHOD 08/01/2024 8:20 AM [facility] Basophils Relative 0.1 % LAB HEMETOLOGY METHOD 08/01/2024 8:20 AM [facility] Immature Granulocytes Relative 1.4 % LAB HEMETOLOGY METHOD 08/01/2024 8:20 AM [facility] Neutrophils Absolute 7.09(H) 1.50 - 7.00 K/mcL LAB HEMETOLOGY METHOD 08/01/2024 8:20 AM [facility] Lymphocytes Absolute 1.16 1.00 - 5.00 K/mcL LAB HEMETOLOGY METHOD 08/01/2024 8:20 AM [facility] Monocytes Absolute 0.70 0.20 - 1.00 K/mcL LAB HEMETOLOGY METHOD 08/01/2024 8:20 AM [facility] Eosinophils Absolute 0.08 0.00 - 0.50 K/mcL LAB HEMETOLOGY METHOD 08/01/2024 8:20 AM [facility] Basophils Absolute 0.01 0.00 - 0.20 K/mcL LAB HEMETOLOGY METHOD 08/01/2024 8:20 AM [facility] Immature Granulocytes Absolute 0.13(H) 0.00 - 0.03 K/mcL LAB HEMETOLOGY METHOD 08/01/2024 8:20 AM EST [facility] Blood Venous blood specimen / Unknown Existing Catheter / Unknown 08/01/2024 6:59 AM EST 08/01/2024 8:07 AM EST us Jonny Mathur MD LAB BLOOD ORDERABLES Final Re sult [facility] [address] [place] [address], [place] [phone] * (ABNORMAL) Basic metabolic panel (08/01/2024 6:59 AM EST) Sodium 132(L) 133 - 145 mmol/L LAB CHEMISTRY METHOD 08/01/2024 8:41 AM [facility] Potassium 4.7 3.5 - 5.5 mmol/L LAB CHEMISTRY METHOD 08/01/2024 8:41 AM [facility] Chloride 96 96 - 110 mmol/L LAB CHEMISTRY METHOD 08/01/2024 8:41 AM [facility] CO2 30 21 - 32 mmol/L LAB CHEMISTRY METHOD 08/01/2024 8:41 AM [facility] Anion Gap 6 3 - 11 LAB CHEMISTRY METHOD 08/01/2024 8:41 AM [facility] Glucose 74 70 - 100 mg/dL LAB CHEMISTRY METHOD 08/01/2024 8:41 AM [facility] BUN 71(H) 5 - 25 mg/dL LAB CHEMISTRY METHOD 08/01/2024 8:41 AM [facility] Creatinine 4.62(H) 0.50 - 1.10 mg/dL LAB CHEMISTRY METHOD 08/01/2024 8:41 AM [facility] eGFR 9(L) >=60 mL/min/1. 73m2 LAB CHEMISTRY METHOD 08/01/2024 8:41 AM EST [facility] Comment:Calculation based on the??Chronic Kidney Disease Epidemiology Collaboration (CKD-EPI) equation refit??without adjustment for race. BUN/Creatinine Ratio 15.4 LAB CHEMISTRY METHOD 08/01/2024 8:41 AM EST [facility] Calcium 8.6 8.5 - 10.5 mg/dL LAB CHEMISTRY METHOD 08/01/2024 8:41 AM EST [facility] Blood Venous blood specimen / Unknown Existing Catheter / Unknown 08/01/2024 6:59 AM EST 08/01/2024 8:07 AM EST us Jonny Mathur MD LAB BLOOD ORDERABLES Final Re sult Performing Organization Address City/[facility]/ZIP Co de Phone Number [facility] [address] [place] [address], [place] [phone] * (ABNORMAL) POCT Glucose, blood (07/31/2024 8:23 PM EST) Glucose POCT 279(H) 70 - 100 mg/dL 07/31/2024 8:24 PM EST [facility] POCT Comment RN Notified 07/31/2024 8:24 PM EST [facility] Blood Capillary blood specimen / Unknown 07/31/2024 8:23 PM EST 07/31/2024 8:25 PM EST us Jonny Mathur MD LAB POINT OF CARE TE ST DOCKED DEVICE UNSOLICITED RESULTS Final Result [facility] [address] [place] [address], [place] [phone] * (ABNORMAL) POCT Glucose, blood (07/31/2024 4:20 PM EST) Glucose POCT 241(H) 70 - 100 mg/dL 07/31/2024 4:21 PM EST [facility] Blood Capillary blood specimen / Unknown 07/31/2024 4:20 PM EST 07/31/2024 4:22 PM EST us Jonny Mathur MD LAB POINT OF CARE TE ST DOCKED DEVICE UNSOLICITED RESULTS Final Result Performing Organization Address [facility]/ZIP Co de Phone Number [facility] [address] [place] [address], [place] [phone] * (ABNORMAL) Hemoglobin and hematocrit (07/31/2024 2:30 PM EST) Hemoglobin 7.3(L) 11.5 - 16.0 g/dL LAB HEMETOLOGY METHOD 07/31/2024 3:12 PM EST [facility] Hematocrit 23.7(L) 35.0 - 47.0 % LAB HEMETOLOGY METHOD 07/31/2024 3:12 PM EST [facility] Blood Venous blood specimen / Unknown Venipuncture / Unknown 07/31/2024 2:30 PM EST 07/31/2024 3:05 PM EST us Jonny Mathur MD LAB BLOOD ORDERABLES Final Re sult Performing Organization Address [facility]/ZIP Co de Phone Number [facility] [address] [place] [address], [place] [phone] * (ABNORMAL) POCT Glucose, blood (07/31/2024 11:22 AM EST) Glucose POCT 132(H) 70 - 100 mg/dL 07/31/2024 11:24 AM EST [facility] Blood Capillary blood specimen / Unknown 07/31/2024 11:22 AM EST 07/31/2024 11:25 AM EST us Jonny Mathur MD LAB POINT OF CARE TE ST DOCKED DEVICE UNSOLICITED RESULTS Final Result Performing Organization Address [facility]/ZIP Co de Phone Number [facility] [address] [place] [address], * (ABNORMAL) POCT Glucose, blood (07/31/2024 8:06 AM EST) Pathologist [facility] Glucose POCT 112(H) 70 - 100 mg/dL 07/31/2024 8:06 AM [facility] Blood Capillary blood specimen / Unknown 07/31/2024 8:06 AM EST 07/31/2024 8:08 AM EST Jonny Mathur MD LAB POINT OF CARE TE ST DOCKED DEVICE UNSOLICITED RESULTS Final Result Performing Organization Address [facility]/ZIP Co de Phone Number [facility] [address] [place] [address], [place] [phone] * (ABNORMAL) CBC auto differential (07/31/2024 5:43 AM EST) [facility] WBC 7.4 4.8 - 10.8 K/mcL LAB HEMETOLOGY METHOD 07/31/2024 7:02 AM [facility] RBC 2.60(L) 3.80 - 4.80 M/mcL LAB HEMETOLOGY METHOD 07/31/2024 7:02 AM [facility] Hemoglobin 6.7(L) 11.5 - 16.0 g/dL LAB HEMETOLOGY METHOD 07/31/2024 7:02 AM [facility] Hematocrit 22.0(L) 35.0 - 47.0 % LAB HEMETOLOGY METHOD 07/31/2024 7:02 AM [facility] MCV 84.0 79.0 - 98.0 FL LAB HEMETOLOGY METHOD 07/31/2024 7:02 AM [facility] MCH 25.6(L) 27.0 - 32.0 pcg LAB HEMETOLOGY METHOD 07/31/2024 7:02 AM [facility] MCHC 30.5(L) 32.0 - 37.0 g/dL LAB HEMETOLOGY METHOD 07/31/2024 7:02 AM [facility] RDW 23.1(H) 11.0 - 15.0 % LAB HEMETOLOGY METHOD 07/31/2024 7:02 AM [facility] Platelets 183 130 - 400 K/mcL LAB HEMETOLOGY METHOD 07/31/2024 7:02 AM [facility] MPV 11.1(H) 7.0 - 11.0 FL LAB HEMETOLOGY METHOD 07/31/2024 7:02 AM [facility] NRBC 0.0 <1.0 % LAB HEMETOLOGY METHOD 07/31/2024 7:02 AM [facility] NRBC Absolute 0.00 <0.10 K/mcL LAB HEMETOLOGY METHOD 07/31/2024 7:02 AM [facility] Neutrophils Relative 77.7 % LAB HEMETOLOGY METHOD 07/31/2024 7:02 AM [facility] Lymphocytes Relative 11.7 % LAB HEMETOLOGY METHOD 07/31/2024 7:02 AM [facility] Monocytes Relative 8.6 % LAB HEMETOLOGY METHOD 07/31/2024 7:02 AM [facility] Eosinophils Relative 0.3 % LAB HEMETOLOGY METHOD 07/31/2024 7:02 AM [facility] Basophils Relative 0.1 % LAB HEMETOLOGY METHOD 07/31/2024 7:02 AM [facility] Immature Granulocytes Relative 1.6 % LAB HEMETOLOGY METHOD 07/31/2024 7:02 AM [facility] Neutrophils Absolute 5.77 1.50 - 7.00 K/mcL LAB HEMETOLOGY METHOD 07/31/2024 7:02 AM EST [facility] Lymphocytes Absolute 0.87(L) 1.00 - 5.00 K/[facility] LAB HEMETOLOGY METHOD 07/31/2024 7:02 AM [facility] Monocytes Absolute 0.64 0.20 - 1.00 K/mcL LAB HEMETOLOGY METHOD 07/31/2024 7:02 AM [facility] Eosinophils Absolute 0.02 0.00 - 0.50 K/[facility] LAB HEMETOLOGY METHOD 07/31/2024 7:02 AM [facility] Basophils Absolute 0.01 0.00 - 0.20 K/[facility] LAB HEMETOLOGY METHOD 07/31/2024 7:02 AM [facility] Immature Granulocytes Absolute 0.12(H) 0.00 - 0.03 K/[facility] LAB HEMETOLOGY METHOD 07/31/2024 7:02 AM [facility] Blood Venous blood specimen / Unknown Existing Catheter / Unknown 07/31/2024 5:43 AM EST 07/31/2024 6:34 AM EST us Jonny Mathur MD LAB BLOOD ORDERABLES Final Re sult [facility] [address] [place] [address], * (ABNORMAL) Basic metabolic panel (07/31/2024 5:43 AM EST) Sodium 132(L) 133 - 145 mmol/L LAB CHEMISTRY METHOD 07/31/2024 7:22 AM [facility] Potassium 4.4 3.5 - 5.5 mmol/L LAB CHEMISTRY METHOD 07/31/2024 7:22 AM [facility] Chloride 94(L) 96 - 110 mmol/L LAB CHEMISTRY METHOD 07/31/2024 7:22 AM [facility] CO2 31 21 - 32 mmol/L LAB CHEMISTRY METHOD 07/31/2024 7:22 AM [facility] Anion Gap 7 3 - 11 LAB CHEMISTRY METHOD 07/31/2024 7:22 AM [facility] Glucose 123(H) 70 - 100 mg/dL LAB CHEMISTRY METHOD 07/31/2024 7:22 AM [facility] BUN 54(H) 5 - 25 mg/dL LAB CHEMISTRY METHOD 07/31/2024 7:22 AM [facility] Creatinine 3.73(H) 0.50 - 1.10 mg/dL LAB CHEMISTRY METHOD 07/31/2024 7:22 AM [facility] eGFR 12(L) >=60 mL/min/1. 73m2 LAB CHEMISTRY METHOD 07/31/2024 7:22 AM [facility] Comment:Calculation based on the??Chronic Kidney Disease Epidemiology Collaboration (CKD-EPI) equation refit??without adjustment for race. BUN/Creatinine Ratio 14.5 LAB CHEMISTRY METHOD 07/31/2024 7:22 AM [facility] Calcium 8.3(L) 8.5 - 10.5 mg/dL LAB CHEMISTRY METHOD 07/31/2024 7:22 AM [facility] Blood Venous blood specimen / Unknown Existing Catheter / Unknown 07/31/2024 5:43 AM EST 07/31/2024 6:36 AM EST us Jonny Mathur MD LAB BLOOD ORDERABLES Final Re sult [facility] [address] [place] [address], * (ABNORMAL) POCT Glucose, blood (07/30/2024 7:51 PM EST) Glucose POCT 315(H) 70 - 100 mg/dL 07/30/2024 7:51 PM [facility] Blood Capillary blood specimen / Unknown 07/30/2024 7:51 PM EST 07/30/2024 7:52 PM EST us Jonny Mathur MD LAB POINT OF CARE TE ST DOCKED DEVICE UNSOLICITED RESULTS Final Result Performing Organization Address [facility]/ZIP Co de Phone Number [facility] [address] [place] [address], [place] [phone] * (ABNORMAL) POCT Glucose, blood (07/30/2024 5:02 PM EST) Glucose POCT 299(H) 70 - 100 mg/dL 07/30/2024 5:03 PM EST [facility] Blood Capillary blood specimen / Unknown 07/30/2024 5:02 PM EST 07/30/2024 5:04 PM EST us Jonny Mathur MD LAB POINT OF CARE TE ST DOCKED DEVICE UNSOLICITED RESULTS Final Result Performing Organization Address [facility] de Phone Number [facility] [address] [place] [address], [place] [phone] * (ABNORMAL) Hemoglobin and hematocrit (07/30/2024 3:32 PM EST) Hemoglobin 7.1(L) 11.5 - 16.0 g/dL LAB HEMETOLOGY METHOD 07/30/2024 3:53 PM EST [facility] Hematocrit 23.1(L) 35.0 - 47.0 % LAB HEMETOLOGY METHOD 07/30/2024 3:53 PM EST [facility] Blood Venous blood specimen / Unknown Venipuncture / Unknown 07/30/2024 3:32 PM EST 07/30/2024 3:46 PM EST us Jonny Mathur MD LAB BLOOD ORDERABLES Final Re sult [facility] [address] [place] [address], [place] [phone] * (ABNORMAL) Hepatic Function Panel - STAT (07/30/2024 11:52 AM EST) Total Protein 5.2(L) 6.0 - 8.0 g/dL LAB CHEMISTRY METHOD 07/30/2024 12:56 PM EST [facility] Albumin 2.4(L) 3.2 - 5.0 g/dL LAB CHEMISTRY METHOD 07/30/2024 12:56 PM EST [facility] Total Bilirubin 0.4 0.0 - 1.4 mg/dL LAB CHEMISTRY METHOD 07/30/2024 12:56 PM [facility] Bilirubin, Direct 0.2 0.0 - 0.3 mg/dL LAB CHEMISTRY METHOD 07/30/2024 12:56 PM [facility] Bilirubin, Indirect 0.2 0.0 - 1.1 mg/dL LAB CHEMISTRY METHOD 07/30/2024 12:56 PM [facility] ALT (SGPT) 17 10 - 60 unit/L LAB CHEMISTRY METHOD 07/30/2024 12:56 PM [facility] AST (SGOT) 12 10 - 42 unit/L LAB CHEMISTRY METHOD 07/30/2024 12:56 PM [facility] Alkaline Phosphatase 80 42 - 121 unit/L LAB CHEMISTRY METHOD 07/30/2024 12:56 PM [facility] Blood Venous blood specimen / Unknown Venipuncture / Unknown 07/30/2024 11:52 AM EST 07/30/2024 12:28 PM EST Jonny Mathur MD LAB BLOOD ORDERABLES Final Re sult [facility] [address] [place] [address], [place] [phone] * (ABNORMAL) POCT Glucose, blood (07/30/2024 11:22 AM EST) Glucose POCT 182(H) 70 - 100 mg/dL 07/30/2024 11:25 AM EST [facility] Blood Capillary blood specimen / Unknown 07/30/2024 11:22 AM EST 07/30/2024 11:25 AM EST Jonny Mathur MD LAB POINT OF CARE TE ST DOCKED DEVICE UNSOLICITED RESULTS Final Result [facility] [address] [place] [address], [place] [phone] * (ABNORMAL) POCT Glucose, blood (07/30/2024 7:47 AM EST) Glucose POCT 173(H) 70 - 100 mg/dL 07/30/2024 7:48 AM EST [facility] Blood Capillary blood specimen / Unknown 07/30/2024 7:47 AM EST 07/30/2024 7:49 AM EST Jonny Mathur MD LAB POINT OF CARE TE ST DOCKED DEVICE UNSOLICITED RESULTS Final Result [facility] [address] [place] [address], [place] [phone] * (ABNORMAL) CBC - Every 3 Days (07/30/2024 6:10 AM EST) WBC 8.0 4.8 - 10.8 K/[facility] LAB HEMETOLOGY METHOD 07/30/2024 6:55 AM EST [facility] RBC 2.90(L) 3.80 - 4.80 M/[facility] LAB HEMETOLOGY METHOD 07/30/2024 6:55 AM EST [facility] Hemoglobin 7.2(L) 11.5 - 16.0 g/dL LAB HEMETOLOGY METHOD 07/30/2024 6:55 AM [facility] Hematocrit 23.9(L) 35.0 - 47.0 % LAB HEMETOLOGY METHOD 07/30/2024 6:55 AM [facility] MCV 83.6 79.0 - 98.0 FL LAB HEMETOLOGY METHOD 07/30/2024 6:55 AM [facility] MCH 25.2(L) 27.0 - 32.0 pcg LAB HEMETOLOGY METHOD 07/30/2024 6:55 AM [facility] MCHC 30.1(L) 32.0 - 37.0 g/dL LAB HEMETOLOGY METHOD 07/30/2024 6:55 AM [facility] RDW 22.9(H) 11.0 - 15.0 % LAB HEMETOLOGY METHOD 07/30/2024 6:55 AM [facility] Platelets 176 130 - 400 K/mcL LAB HEMETOLOGY METHOD 07/30/2024 6:55 AM [facility] MPV 10.7 7.0 - 11.0 FL LAB HEMETOLOGY METHOD 07/30/2024 6:55 AM [facility] NRBC 0.0 <1.0 % LAB HEMETOLOGY METHOD 07/30/2024 6:55 AM [facility] NRBC Absolute 0.00 <0.10 K/mcL LAB HEMETOLOGY METHOD 07/30/2024 6:55 AM [facility] Blood Venous blood specimen / Unknown Venipuncture / Unknown 07/30/2024 6:10 AM EST 07/30/2024 6:25 AM EST [facility] [employer] [facility] LAB BLOOD ORDERABLES Final R esult [facility] [address] [place] [address], [place] [phone] * (ABNORMAL) Heparin and low molecular weight anti Xa level (07/30/2024 6:10 AM EST) [facility] Heparin Anti-Xa 1.16(H) 0.30 - 0.70 I Unit/mL LAB COAGULATION METHOD 07/30/2024 6:53 AM EST [facility] Blood Venous blood specimen / Unknown Venipuncture / Unknown 07/30/2024 6:10 AM EST 07/30/2024 6:26 AM EST Narrative [facility] - 07/30/2024 6:53 AM EST Therapeutic range listed is for Unfractionated Heparin. LMW Heparin therapeutic range: 0.50-1.20 IU/mL us Jonny Mathur MD LAB BLOOD ORDERABLES Final Re sult [facility] [address] [place] [address], [place] [phone] * (ABNORMAL) POCT Glucose, blood (07/29/2024 8:11 PM EST) [facility] Glucose POCT 321(H) 70 - 100 mg/dL 07/29/2024 8:19 PM EST [facility] Blood Capillary blood specimen / Unknown 07/29/2024 8:11 PM EST 07/29/2024 8:20 PM EST us Jonny Mathur MD LAB POINT OF CARE TE ST DOCKED DEVICE UNSOLICITED RESULTS Final Result [facility] [address] [place] [address], [place] [phone] * (ABNORMAL) POCT Glucose, blood (07/29/2024 4:19 PM EST) [facility] Signature Glucose POCT 267(H) 70 - 100 mg/dL 07/29/2024 4:21 PM EST [facility] Blood Capillary blood specimen / Unknown 07/29/2024 4:19 PM EST 07/29/2024 4:22 PM EST us Jonny Mathur MD LAB POINT OF CARE TE ST DOCKED DEVICE UNSOLICITED RESULTS Final Result Performing Organization Address City/[facility]/ZIP Co de Phone Number [facility] [address] [place] [address], [place] [phone] * Hepatitis B surface antigen with reflex to confirmation (07/29/2024 11:51 AM EST) Hepatitis B Surface Ag Negative Negative LAB CHEMISTRY METHOD 07/29/2024 3:12 PM EST [facility] Blood Venous blood specimen / Unknown Venipuncture / Unknown 07/29/2024 11:51 AM EST 07/29/2024 1:08 PM EST Narrative [facility] - 07/29/2024 3:12 PM EST Over the counter supplements containing high doses of biotin may interfere with this assay. ??If interference is suspected, patients shoud be retested after refraining from biotin supplements for 72 hours. us Jonny Mathur MD LAB BLOOD ORDERABLES Final Re sult [facility] [address] [place] [address], [place] [phone] * (ABNORMAL) POCT Glucose, blood (07/29/2024 11:23 AM EST) Glucose POCT 108(H) 70 - 100 mg/dL 07/29/2024 11:30 AM EST [facility] Blood Capillary blood specimen / Unknown 07/29/2024 11:23 AM EST 07/29/2024 11:31 AM EST Jonny Mathur MD LAB POINT OF CARE TE ST DOCKED DEVICE UNSOLICITED RESULTS Final Result [facility] [address] [place] [address], [place] [phone] * Heparin and low molecular weight anti Xa level (07/29/2024 5:54 AM EST) Pathologist [facility] Heparin Anti-Xa 0.61 0.30 - 0.70 I Unit/mL LAB COAGULATION METHOD 07/29/2024 6:54 AM EST [facility] Blood Venous blood specimen / Unknown Venipuncture / Unknown 07/29/2024 5:54 AM EST 07/29/2024 6:34 AM EST Narrative [facility] - 07/29/2024 6:54 AM EST Therapeutic range listed is for Unfractionated Heparin. LMW Heparin therapeutic range: 0.50-1.20 IU/mL Jonny Mathur MD LAB BLOOD ORDERABLES Final Re sult [facility] [address] [place] [address], [place] [phone] * (ABNORMAL) CBC auto differential (07/29/2024 5:54 AM EST) [facility] WBC 7.3 4.8 - 10.8 K/mcL LAB HEMETOLOGY METHOD 07/29/2024 6:55 AM EST [facility] RBC 2.60(L) 3.80 - 4.80 M/mcL LAB HEMETOLOGY METHOD 07/29/2024 6:55 AM EST [facility] Hemoglobin 6.7(L) 11.5 - 16.0 g/dL LAB HEMETOLOGY METHOD 07/29/2024 6:55 AM EST [facility] Hematocrit 21.7(L) 35.0 - 47.0 % LAB HEMETOLOGY METHOD 07/29/2024 6:55 AM [facility] MCV 82.8 79.0 - 98.0 FL LAB HEMETOLOGY METHOD 07/29/2024 6:55 AM [facility] MCH 25.6(L) 27.0 - 32.0 pcg LAB HEMETOLOGY METHOD 07/29/2024 6:55 AM [facility] MCHC 30.9(L) 32.0 - 37.0 g/dL LAB HEMETOLOGY METHOD 07/29/2024 6:55 AM [facility] RDW 23.1(H) 11.0 - 15.0 % LAB HEMETOLOGY METHOD 07/29/2024 6:55 AM [facility] Platelets 146 130 - 400 K/mcL LAB HEMETOLOGY METHOD 07/29/2024 6:55 AM [facility] MPV 10.7 7.0 - 11.0 FL LAB HEMETOLOGY METHOD 07/29/2024 6:55 AM [facility] NRBC 0.0 <1.0 % LAB HEMETOLOGY METHOD 07/29/2024 6:55 AM [facility] NRBC Absolute 0.00 <0.10 K/mcL LAB HEMETOLOGY METHOD 07/29/2024 6:55 AM [facility] Neutrophils Relative 83.4 % LAB HEMETOLOGY METHOD 07/29/2024 6:55 AM [facility] Lymphocytes Relative 8.2 % LAB HEMETOLOGY METHOD 07/29/2024 6:55 AM [facility] Monocytes Relative 6.1 % LAB HEMETOLOGY METHOD 07/29/2024 6:55 AM [facility] Eosinophils Relative 0.3 % LAB HEMETOLOGY METHOD 07/29/2024 6:55 AM [facility] Basophils Relative 0.1 % LAB HEMETOLOGY METHOD 07/29/2024 6:55 AM EST [facility] Immature Granulocytes Relative 1.9 % LAB HEMETOLOGY METHOD 07/29/2024 6:55 AM EST [facility] Neutrophils Absolute 6.11 1.50 - 7.00 K/mcL LAB HEMETOLOGY METHOD 07/29/2024 6:55 AM EST [facility] Lymphocytes Absolute 0.60(L) 1.00 - 5.00 K/mcL LAB HEMETOLOGY METHOD 07/29/2024 6:55 AM EST [facility] Monocytes Absolute 0.45 0.20 - 1.00 K/mcL LAB HEMETOLOGY METHOD 07/29/2024 6:55 AM EST [facility] Eosinophils Absolute 0.02 0.00 - 0.50 K/mcL LAB HEMETOLOGY METHOD 07/29/2024 6:55 AM EST [facility] Basophils Absolute 0.01 0.00 - 0.20 K/mcL LAB HEMETOLOGY METHOD 07/29/2024 6:55 AM EST [facility] Immature Granulocytes Absolute 0.14(H) 0.00 - 0.03 K/mcL LAB HEMETOLOGY METHOD 07/29/2024 6:55 AM [facility] Blood Venous blood specimen / Unknown Venipuncture / Unknown 07/29/2024 5:54 AM EST 07/29/2024 6:34 AM EST us Jonny Mathur MD LAB BLOOD ORDERABLES Final Re sult [facility] [address] [place] [address], * (ABNORMAL) Basic metabolic panel (07/29/2024 5:54 AM EST) Sodium 131(L) 133 - 145 mmol/L LAB CHEMISTRY METHOD 07/29/2024 7:22 AM EST [facility] Potassium 4.2 3.5 - 5.5 mmol/L LAB CHEMISTRY METHOD 07/29/2024 7:22 AM [facility] Chloride 95(L) 96 - 110 mmol/L LAB CHEMISTRY METHOD 07/29/2024 7:22 AM [facility] CO2 31 21 - 32 mmol/L LAB CHEMISTRY METHOD 07/29/2024 7:22 AM [facility] Anion Gap 5 3 - 11 LAB CHEMISTRY METHOD 07/29/2024 7:22 AM [facility] Glucose 180(H) 70 - 100 mg/dL LAB CHEMISTRY METHOD 07/29/2024 7:22 AM [facility] BUN 49(H) 5 - 25 mg/dL LAB CHEMISTRY METHOD 07/29/2024 7:22 AM [facility] Creatinine 3.73(H) 0.50 - 1.10 mg/dL LAB CHEMISTRY METHOD 07/29/2024 7:22 AM [facility] eGFR 12(L) >=60 mL/min/1. 73m2 LAB CHEMISTRY METHOD 07/29/2024 7:22 AM [facility] Comment:Calculation based on the??Chronic Kidney Disease Epidemiology Collaboration (CKD-EPI) equation refit??without adjustment for race. BUN/Creatinine Ratio 13.1 LAB CHEMISTRY METHOD 07/29/2024 7:22 AM [facility] Calcium 7.8(L) 8.5 - 10.5 mg/dL LAB CHEMISTRY METHOD 07/29/2024 7:22 AM [facility] Blood Venous blood specimen / Unknown Venipuncture / Unknown 07/29/2024 5:54 AM EST 07/29/2024 6:34 AM EST us Jonny Mathur MD LAB BLOOD ORDERABLES Final Re sult [facility] [address] [place] [address], [place] [phone] * Heparin and low molecular weight anti Xa level (07/28/2024 11:42 PM EST) Heparin Anti-Xa 0.65 0.30 - 0.70 I Unit/mL LAB COAGULATION METHOD 07/29/2024 12:10 AM EST [facility] Blood Venous blood specimen / Unknown Venipuncture / Unknown 07/28/2024 11:42 PM EST 07/28/2024 11:52 PM EST Narrative [facility] - 07/29/2024 12:10 AM EST Therapeutic range listed is for Unfractionated Heparin. LMW Heparin therapeutic range: 0.50-1.20 IU/mL us Jonny Mathur MD LAB BLOOD ORDERABLES Final Re sult Performing Organization Address [facility]/ZIP Co de Phone Number [facility] [address] [place] [address], [place] [phone] * (ABNORMAL) Heparin and low molecular weight anti Xa level (07/28/2024 7:46 PM EST) Pathologist [facility] Heparin Anti-Xa 1.05(H) 0.30 - 0.70 I Unit/mL LAB COAGULATION METHOD 07/28/2024 9:19 PM EST [facility] Blood Venous blood specimen / Unknown Venipuncture / Unknown 07/28/2024 7:46 PM EST 07/28/2024 9:09 PM EST Narrative [facility] - 07/28/2024 9:19 PM EST Therapeutic range listed is for Unfractionated Heparin. LMW Heparin therapeutic range: 0.50-1.20 IU/mL us Jonny Mathur MD LAB BLOOD ORDERABLES Final Re sult [facility] [address] [place] [address], [place] [phone] * (ABNORMAL) POCT Glucose, blood (07/28/2024 7:41 PM EST) Glucose POCT 269(H) 70 - 100 mg/dL 07/28/2024 7:41 PM EST [facility] Blood Capillary blood specimen / Unknown 07/28/2024 7:41 PM EST 07/28/2024 7:43 PM EST us Jonny Mathur MD LAB POINT OF CARE TE ST DOCKED DEVICE UNSOLICITED RESULTS Final Result [facility] [address] [place] [address], [place] [phone] * (ABNORMAL) POCT Glucose, blood (07/28/2024 4:54 PM EST) Glucose POCT 258(H) 70 - 100 mg/dL 07/28/2024 4:56 PM EST [facility] Blood Capillary blood specimen / Unknown 07/28/2024 4:54 PM EST 07/28/2024 4:57 PM EST us Jonny Mathur MD LAB POINT OF CARE TE ST DOCKED DEVICE UNSOLICITED RESULTS Final Result [facility] [address] [place] [address], [place] [phone] * Hepatitis B core antibody IgM (07/28/2024 12:19 PM EST) Hep B Core IgM Negative Negative LAB CHEMISTRY METHOD 07/28/2024 3:22 PM EST [facility] Blood Venous blood specimen / Unknown Venipuncture / Unknown 07/28/2024 12:19 PM EST 07/28/2024 12:35 PM EST Narrative [facility] - 07/28/2024 3:22 PM EST Over the counter supplements containing high doses of biotin may interfere with this assay. ??If interference is suspected, patients shoud be retested after refraining from biotin supplements for 72 hours. us Miguel Quiles MD LAB BLOOD ORDERABLES Final Res ult Performing Organization Address [facility] de Phone Number [facility] [address] [place] [address], * Hepatitis B surface antibody (07/28/2024 12:19 PM EST) Pathologist [facility] Hepatitis B Surface Ab Negative Negative LAB CHEMISTRY METHOD 07/28/2024 1:40 PM EST [facility] Hepatitis B Surface Ab Quantitative <3.1 mIU/mL LAB CHEMISTRY METHOD 07/28/2024 1:40 PM EST [facility] Blood Venous blood specimen / Unknown Venipuncture / Unknown 07/28/2024 12:19 PM EST 07/28/2024 12:35 PM EST Narrative [facility] - 07/28/2024 1:40 PM EST >=10 mIU/mL is considered to be consistent with immunity. us Miguel Quiles MD LAB BLOOD ORDERABLES Final Res ult Performing Organization Address [facility] de Phone Number [facility] [address] [place] [address], * (ABNORMAL) POCT Glucose, blood (07/28/2024 11:02 AM EST) [facility] Glucose POCT 220(H) 70 - 100 mg/dL 07/28/2024 11:04 AM EST [facility] Blood Capillary blood specimen / Unknown 07/28/2024 11:02 AM EST 07/28/2024 11:05 AM EST us Jonny Mathur MD LAB POINT OF CARE TE ST DOCKED DEVICE UNSOLICITED RESULTS Final Result Performing Organization Address [facility] de Phone Number [facility] [address] [place] [address], * (ABNORMAL) CBC auto differential (07/28/2024 9:51 AM EST) [facility] Signature WBC 13.0(H) 4.8 - 10.8 K/mcL LAB HEMETOLOGY METHOD 07/28/2024 12:32 PM EST [facility] RBC 3.10(L) 3.80 - 4.80 M/mcL LAB HEMETOLOGY METHOD 07/28/2024 12:32 PM [facility] Hemoglobin 8.0(L) 11.5 - 16.0 g/dL LAB HEMETOLOGY METHOD 07/28/2024 12:32 PM [facility] Hematocrit 26.5(L) 35.0 - 47.0 % LAB HEMETOLOGY METHOD 07/28/2024 12:32 PM EST [facility] LAB MCV 84.9 79.0 - 98.0 FL LAB HEMETOLOGY METHOD 07/28/2024 12:32 PM [facility] MCH 25.6(L) 27.0 - 32.0 pcg LAB HEMETOLOGY METHOD 07/28/2024 12:32 PM [facility] LAB MCHC 30.2(L) 32.0 - 37.0 g/dL LAB HEMETOLOGY METHOD 07/28/2024 12:32 PM EST [facility] LAB RDW 22.8(H) 11.0 - 15.0 % LAB HEMETOLOGY METHOD 07/28/2024 12:32 PM [facility] Platelets 158 130 - 400 K/[facility] LAB HEMETOLOGY METHOD 07/28/2024 12:32 PM [facility] LAB MPV 11.5(H) 7.0 - 11.0 FL LAB HEMETOLOGY METHOD 07/28/2024 12:32 PM [facility] LAB NRBC 0.0 <1.0 % LAB HEMETOLOGY METHOD 07/28/2024 12:32 PM [facility] LAB NRBC Absolute 0.00 <0.10 K/[facility] LAB HEMETOLOGY METHOD 07/28/2024 12:32 PM [facility] LAB Neutrophils Relative 86.3 % LAB HEMETOLOGY METHOD 07/28/2024 12:32 PM [facility] LAB Lymphocytes Relative 5.8 % LAB HEMETOLOGY METHOD 07/28/2024 12:32 PM [facility] LAB Monocytes Relative 4.8 % LAB HEMETOLOGY METHOD 07/28/2024 12:32 PM [facility] LAB Eosinophils Relative 1.7 % LAB HEMETOLOGY METHOD 07/28/2024 12:32 PM [facility] Basophils Relative 0.1 % LAB HEMETOLOGY METHOD 07/28/2024 12:32 PM [facility] Immature Granulocytes Relative 1.3 % LAB HEMETOLOGY METHOD 07/28/2024 12:32 PM [facility] Neutrophils Absolute 11.22(H) 1.50 - 7.00 K/[facility] LAB HEMETOLOGY METHOD 07/28/2024 12:32 PM [facility] Lymphocytes Absolute 0.76(L) 1.00 - 5.00 K/[facility] LAB HEMETOLOGY METHOD 07/28/2024 12:32 PM [facility] Monocytes Absolute 0.63 0.20 - 1.00 K/[facility] LAB HEMETOLOGY METHOD 07/28/2024 12:32 PM [facility] Eosinophils Absolute 0.22 0.00 - 0.50 K/[facility] LAB HEMETOLOGY METHOD 07/28/2024 12:32 PM [facility] Basophils Absolute 0.01 0.00 - 0.20 K/mcL LAB HEMETOLOGY METHOD 07/28/2024 12:32 PM EST [facility] Immature Granulocytes Absolute 0.17(H) 0.00 - 0.03 K/mcL LAB HEMETOLOGY METHOD 07/28/2024 12:32 PM [facility] Blood Venous blood specimen / Unknown Venipuncture / Unknown 07/28/2024 9:51 AM EST 07/28/2024 12:19 PM EST us Jonny Mathur MD LAB BLOOD ORDERABLES Final Re sult [facility] [address] [place] [address], [place] [phone] * (ABNORMAL) Basic metabolic panel (07/28/2024 9:51 AM EST) Sodium 134 133 - 145 mmol/L LAB CHEMISTRY METHOD 07/28/2024 1:16 PM [facility] Potassium 4.0 3.5 - 5.5 mmol/L LAB CHEMISTRY METHOD 07/28/2024 1:16 PM [facility] Chloride 95(L) 96 - 110 mmol/L LAB CHEMISTRY METHOD 07/28/2024 1:16 PM [facility] CO2 29 21 - 32 mmol/L LAB CHEMISTRY METHOD 07/28/2024 1:16 PM [facility] Anion Gap 10 3 - 11 LAB CHEMISTRY METHOD 07/28/2024 1:16 PM [facility] Glucose 230(H) 70 - 100 mg/dL LAB CHEMISTRY METHOD 07/28/2024 1:16 PM [facility] BUN 32(H) 5 - 25 mg/dL LAB CHEMISTRY METHOD 07/28/2024 1:16 PM [facility] Creatinine 2.82(H) 0.50 - 1.10 mg/dL LAB CHEMISTRY METHOD 07/28/2024 1:16 PM [facility] eGFR 16(L) >=60 mL/min/1. 73m2 LAB CHEMISTRY METHOD 07/28/2024 1:16 PM EST [facility] Comment:Calculation based on the??Chronic Kidney Disease Epidemiology Collaboration (CKD-EPI) equation refit??without adjustment for race. BUN/Creatinine Ratio 11.3 LAB CHEMISTRY METHOD 07/28/2024 1:16 PM EST [facility] Calcium 7.9(L) 8.5 - 10.5 mg/dL LAB CHEMISTRY METHOD 07/28/2024 1:16 PM [facility] Blood Venous blood specimen / Unknown Venipuncture / Unknown 07/28/2024 9:51 AM EST 07/28/2024 12:18 PM EST us Jonny Mathur MD LAB BLOOD ORDERABLES Final Re sult Performing Organization Address [facility]/ZIP Co de Phone Number [facility] [address] [place] [address], [place] [phone] * (ABNORMAL) Heparin and low molecular weight anti Xa level (07/28/2024 9:51 AM EST) Heparin Anti-Xa 0.16(L) 0.30 - 0.70 I Unit/mL LAB COAGULATION METHOD 07/28/2024 12:37 PM [facility] Blood Venous blood specimen / Unknown Venipuncture / Unknown 07/28/2024 9:51 AM EST 07/28/2024 12:19 PM EST Narrative [facility] - 07/28/2024 12:37 PM EST Therapeutic range listed is for Unfractionated Heparin. LMW Heparin therapeutic range: 0.50-1.20 IU/mL us Jonny Mathur MD LAB BLOOD ORDERABLES Final Re sult Performing Organization Address [facility]/ZIP Co de Phone Number [facility] [address] [place] [address], [place] [phone] * (ABNORMAL) POCT Glucose, blood (07/28/2024 9:29 AM EST) Glucose POCT 214(H) 70 - 100 mg/dL 07/28/2024 10:23 AM EST [facility] Blood Capillary blood specimen / Unknown 07/28/2024 9:29 AM EST 07/28/2024 10:24 AM EST Jonny Mathur MD LAB POINT OF CARE TE ST DOCKED DEVICE UNSOLICITED RESULTS Final Result Performing Organization Address [facility]/ZIP Co de Phone Number [facility] [address] [place] [address], * Heparin and low molecular weight anti Xa level (07/28/2024 2:09 AM EST) Heparin Anti-Xa 0.39 0.30 - 0.70 I Unit/mL LAB COAGULATION METHOD 07/28/2024 2:28 AM EST [facility] Blood Venous blood specimen / Unknown Venipuncture / Unknown 07/28/2024 2:09 AM EST 07/28/2024 2:16 AM EST Narrative [facility] - 07/28/2024 2:28 AM EST Therapeutic range listed is for Unfractionated Heparin. LMW Heparin therapeutic range: 0.50-1.20 IU/mL us Jonny Mathur MD LAB BLOOD ORDERABLES Final Re sult [facility] [address] [place] [address], [place] [phone] * (ABNORMAL) Heparin and low molecular weight anti Xa level (07/27/2024 11:55 PM EST) Heparin Anti-Xa 0.22(L) 0.30 - 0.70 I Unit/mL LAB COAGULATION METHOD 07/28/2024 12:28 AM EST [facility] Blood Venous blood specimen / Unknown Venipuncture / Unknown 07/27/2024 11:55 PM EST 07/28/2024 12:20 AM EST Narrative [facility] - 07/28/2024 12:28 AM EST Therapeutic range listed is for Unfractionated Heparin. LMW Heparin therapeutic range: 0.50-1.20 IU/mL Jonny Mathur MD LAB BLOOD ORDERABLES Final Re sult Performing Organization Address City/[facility]/ZIP Co de Phone Number [facility] [address] [place] [address], [place] [phone] * (ABNORMAL) Heparin and low molecular weight anti Xa level (07/27/2024 9:31 PM EST) Heparin Anti-Xa 1.11(H) 0.30 - 0.70 I Unit/mL LAB COAGULATION METHOD 07/27/2024 9:51 PM EST [facility] Blood Venous blood specimen / Unknown Venipuncture / Unknown 07/27/2024 9:31 PM EST 07/27/2024 9:37 PM EST Narrative [facility] - 07/27/2024 9:51 PM EST Therapeutic range listed is for Unfractionated Heparin. LMW Heparin therapeutic range: 0.50-1.20 IU/mL us Jonny Mathur MD LAB BLOOD ORDERABLES Final Re sult [facility] [address] [place] [address], [place] [phone] * (ABNORMAL) POCT Glucose, blood (07/27/2024 8:12 PM EST) Glucose POCT 249(H) 70 - 100 mg/dL 07/27/2024 8:13 PM EST [facility] Blood Capillary blood specimen / Unknown 07/27/2024 8:12 PM EST 07/27/2024 8:14 PM EST us Jonny Mathur MD LAB POINT OF CARE TE ST DOCKED DEVICE UNSOLICITED RESULTS Final Result Performing Organization Address [facility]/ZIP Co de Phone Number [facility] [address] [place] [address], [place] [phone] * (ABNORMAL) POCT Glucose, blood (07/27/2024 4:34 PM EST) [facility] Glucose POCT 213(H) 70 - 100 mg/dL 07/27/2024 4:40 PM EST [facility] Blood Capillary blood specimen / Unknown 07/27/2024 4:34 PM EST 07/27/2024 4:41 PM EST Jonny Mathur MD LAB POINT OF CARE TE ST DOCKED DEVICE UNSOLICITED RESULTS Final Result Performing Organization Address [facility]/ZIP Co de Phone Number [facility] [address] [place] [address], [place] [phone] * (ABNORMAL) Complete blood count (07/27/2024 3:25 PM EST) [facility] WBC 17.5(H) 4.8 - 10.8 K/[facility] HEMETOLOGY METHOD 07/27/2024 3:46 PM [facility] RBC 3.30(L) 3.80 - 4.80 M/[facility] HEMETOLOGY METHOD 07/27/2024 3:46 PM [facility] Hemoglobin 8.3(L) 11.5 - 16.0 g/dL LAB HEMETOLOGY METHOD 07/27/2024 3:46 PM [facility] Hematocrit 27.7(L) 35.0 - 47.0 % LAB HEMETOLOGY METHOD 07/27/2024 3:46 PM [facility] MCV 83.7 79.0 - 98.0 FL LAB HEMETOLOGY METHOD 07/27/2024 3:46 PM EST [facility] MCH 25.1(L) 27.0 - 32.0 pcg LAB HEMETOLOGY METHOD 07/27/2024 3:46 PM EST [facility] MCHC 30.0(L) 32.0 - 37.0 g/dL LAB HEMETOLOGY METHOD 07/27/2024 3:46 PM EST [facility] RDW 22.5(H) 11.0 - 15.0 % LAB HEMETOLOGY METHOD 07/27/2024 3:46 PM EST [facility] Platelets 147 130 - 400 K/mcL LAB HEMETOLOGY METHOD 07/27/2024 3:46 PM EST [facility] MPV 10.8 7.0 - 11.0 FL LAB HEMETOLOGY METHOD 07/27/2024 3:46 PM EST [facility] NRBC 0.0 <1.0 % LAB HEMETOLOGY METHOD 07/27/2024 3:46 PM EST [facility] NRBC Absolute 0.00 <0.10 K/mcL LAB HEMETOLOGY METHOD 07/27/2024 3:46 PM EST [facility] Blood Venous blood specimen / Unknown Venipuncture / Unknown 07/27/2024 3:25 PM EST 07/27/2024 3:29 PM EST us Jonny Mathur MD LAB BLOOD ORDERABLES Final Re sult [facility] [address] [place] [address], * (ABNORMAL) Heparin and low molecular weight anti Xa level (07/27/2024 1:42 PM EST) Heparin Anti-Xa <0.04(L) 0.30 - 0.70 I Unit/mL LAB COAGULATION METHOD 07/27/2024 2:08 PM [facility] Blood Venous blood specimen / Unknown Venipuncture / Unknown 07/27/2024 1:42 PM EST 07/27/2024 1:52 PM EST Narrative [facility] - 07/27/2024 2:08 PM EST Therapeutic range listed is for Unfractionated Heparin. LMW Heparin therapeutic range: 0.50-1.20 IU/mL us Jonny Matuhr MD LAB BLOOD ORDERABLES Final Re sult [facility] [address] [place] [address], [place] [phone] * (ABNORMAL) Basic metabolic panel (07/27/2024 1:42 PM EST) Sodium 131(L) 133 - 145 mmol/L LAB CHEMISTRY METHOD 07/27/2024 2:30 PM [facility] Potassium 3.8 3.5 - 5.5 mmol/L LAB CHEMISTRY METHOD 07/27/2024 2:30 PM [facility] Chloride 97 96 - 110 mmol/L LAB CHEMISTRY METHOD 07/27/2024 2:30 PM [facility] CO2 28 21 - 32 mmol/L LAB CHEMISTRY METHOD 07/27/2024 2:30 PM [facility] Anion Gap 6 3 - 11 LAB CHEMISTRY METHOD 07/27/2024 2:30 PM [facility] Glucose 150(H) 70 - 100 mg/dL LAB CHEMISTRY METHOD 07/27/2024 2:30 PM [facility] BUN 17 5 - 25 mg/dL LAB CHEMISTRY METHOD 07/27/2024 2:30 PM [facility] Creatinine 1.53(H) 0.50 - 1.10 mg/dL LAB CHEMISTRY METHOD 07/27/2024 2:30 PM [facility] eGFR 34(L) >=60 mL/min/1. 73m2 LAB CHEMISTRY METHOD 07/27/2024 2:30 PM EST [facility] Comment:Calculation based on the??Chronic Kidney Disease Epidemiology Collaboration (CKD-EPI) equation refit??without adjustment for race. BUN/Creatinine Ratio 11.1 LAB CHEMISTRY METHOD 07/27/2024 2:30 PM EST [facility] Calcium 7.9(L) 8.5 - 10.5 mg/dL LAB CHEMISTRY METHOD 07/27/2024 2:30 PM EST [facility] Blood Venous blood specimen / Unknown Venipuncture / Unknown 07/27/2024 1:42 PM EST 07/27/2024 1:52 PM EST Jonny Mathur MD LAB BLOOD ORDERABLES Final Re sult Performing Organization Address City/[facility]/ZIP Co de Phone Number [facility] [address] [place] [address], [place] [phone] * (ABNORMAL) POCT Glucose, blood (07/27/2024 11:54 AM EST) Glucose POCT 126(H) 70 - 100 mg/dL 07/27/2024 11:57 AM EST [facility] Blood Capillary blood specimen / Unknown 07/27/2024 11:54 AM EST 07/27/2024 11:58 AM EST Jonny Mathur MD LAB POINT OF CARE TE ST DOCKED DEVICE UNSOLICITED RESULTS Final Result Performing Organization Address City/[facility]/ZIP Co de Phone Number [facility] [address] [place] [address], [place] [phone] * (ABNORMAL) CBC auto differential (07/27/2024 6:27 AM EST) WBC 12.4(H) 4.8 - 10.8 K/mcL LAB HEMETOLOGY METHOD 07/27/2024 7:55 AM [facility] RBC 3.10(L) 3.80 - 4.80 M/mcL LAB HEMETOLOGY METHOD 07/27/2024 7:55 AM [facility] Hemoglobin 7.7(L) 11.5 - 16.0 g/dL LAB HEMETOLOGY METHOD 07/27/2024 7:55 AM [facility] Hematocrit 25.5(L) 35.0 - 47.0 % LAB HEMETOLOGY METHOD 07/27/2024 7:55 AM [facility] MCV 83.3 79.0 - 98.0 FL LAB HEMETOLOGY METHOD 07/27/2024 7:55 AM [facility] MCH 25.2(L) 27.0 - 32.0 pcg LAB HEMETOLOGY METHOD 07/27/2024 7:55 AM [facility] MCHC 30.2(L) 32.0 - 37.0 g/dL LAB HEMETOLOGY METHOD 07/27/2024 7:55 AM [facility] RDW 22.4(H) 11.0 - 15.0 % LAB HEMETOLOGY METHOD 07/27/2024 7:55 AM [facility] Platelets 143 130 - 400 K/mcL LAB HEMETOLOGY METHOD 07/27/2024 7:55 AM [facility] MPV 11.2(H) 7.0 - 11.0 FL LAB HEMETOLOGY METHOD 07/27/2024 7:55 AM [facility] NRBC 0.0 <1.0 % LAB HEMETOLOGY METHOD 07/27/2024 7:55 AM [facility] NRBC Absolute 0.00 <0.10 K/mcL LAB HEMETOLOGY METHOD 07/27/2024 7:55 AM [facility] Neutrophils Relative 82.8 % LAB HEMETOLOGY METHOD 07/27/2024 7:55 AM [facility] Lymphocytes Relative 10.0 % LAB HEMETOLOGY METHOD 07/27/2024 7:55 AM [facility] Monocytes Relative 4.8 % LAB HEMETOLOGY METHOD 07/27/2024 7:55 AM [facility] Eosinophils Relative 0.8 % LAB HEMETOLOGY METHOD 07/27/2024 7:55 AM [facility] Basophils Relative 0.1 % LAB HEMETOLOGY METHOD 07/27/2024 7:55 AM [facility] Immature Granulocytes Relative 1.5 % LAB HEMETOLOGY METHOD 07/27/2024 7:55 AM [facility] Neutrophils Absolute 10.27(H) 1.50 - 7.00 K/mcL LAB HEMETOLOGY METHOD 07/27/2024 7:55 AM [facility] Lymphocytes Absolute 1.24 1.00 - 5.00 K/mcL LAB HEMETOLOGY METHOD 07/27/2024 7:55 AM [facility] Monocytes Absolute 0.59 0.20 - 1.00 K/mcL LAB HEMETOLOGY METHOD 07/27/2024 7:55 AM [facility] Eosinophils Absolute 0.10 0.00 - 0.50 K/mcL LAB HEMETOLOGY METHOD 07/27/2024 7:55 AM [facility] Basophils Absolute 0.01 0.00 - 0.20 K/mcL LAB HEMETOLOGY METHOD 07/27/2024 7:55 AM [facility] Immature Granulocytes Absolute 0.19(H) 0.00 - 0.03 K/mcL LAB HEMETOLOGY METHOD 07/27/2024 7:55 AM [facility] Blood Venous blood specimen / Unknown Venipuncture / Unknown 07/27/2024 6:27 AM EST 07/27/2024 7:41 AM EST Jonny Mathur MD LAB BLOOD ORDERABLES Final Re sult [facility] [address] [place] [address], [place] [phone] * (ABNORMAL) Heparin and low molecular weight anti Xa level (07/27/2024 6:27 AM EST) Pathologist [facility] Heparin Anti-Xa 0.74(H) 0.30 - 0.70 I Unit/mL LAB COAGULATION METHOD 07/27/2024 8:11 AM EST [facility] Blood Venous blood specimen / Unknown Venipuncture / Unknown 07/27/2024 6:27 AM EST 07/27/2024 7:41 AM EST Narrative [facility] - 07/27/2024 8:11 AM EST Therapeutic range listed is for Unfractionated Heparin. LMW Heparin therapeutic range: 0.50-1.20 IU/mL Jonny Mathur MD LAB BLOOD ORDERABLES Final Re sult [facility] [address] [place] [address], [place] [phone] * (ABNORMAL) CBC - Every 3 Days (07/27/2024 6:27 AM EST) WBC 12.4(H) 4.8 - 10.8 K/mcL LAB HEMETOLOGY METHOD 07/27/2024 7:55 AM EST [facility] RBC 3.10(L) 3.80 - 4.80 M/mcL LAB HEMETOLOGY METHOD 07/27/2024 7:55 AM EST [facility] Hemoglobin 7.7(L) 11.5 - 16.0 g/dL LAB HEMETOLOGY METHOD 07/27/2024 7:55 AM EST [facility] Hematocrit 25.5(L) 35.0 - 47.0 % LAB HEMETOLOGY METHOD 07/27/2024 7:55 AM EST [facility] MCV 83.3 79.0 - 98.0 FL LAB HEMETOLOGY METHOD 07/27/2024 7:55 AM EST [facility] MCH 25.2(L) 27.0 - 32.0 pcg LAB HEMETOLOGY METHOD 07/27/2024 7:55 AM EST [facility] MCHC 30.2(L) 32.0 - 37.0 g/dL LAB HEMETOLOGY METHOD 07/27/2024 7:55 AM EST [facility] RDW 22.4(H) 11.0 - 15.0 % LAB HEMETOLOGY METHOD 07/27/2024 7:55 AM [facility] Platelets 143 130 - 400 K/mcL LAB HEMETOLOGY METHOD 07/27/2024 7:55 AM EST [facility] MPV 11.2(H) 7.0 - 11.0 FL LAB HEMETOLOGY METHOD 07/27/2024 7:55 AM EST [facility] NRBC 0.0 <1.0 % LAB HEMETOLOGY METHOD 07/27/2024 7:55 AM [facility] NRBC Absolute 0.00 <0.10 K/mcL LAB HEMETOLOGY METHOD 07/27/2024 7:55 AM [facility] Blood Venous blood specimen / Unknown Venipuncture / Unknown 07/27/2024 6:27 AM EST 07/27/2024 7:41 AM EST [facility] [employer] [facility] LAB BLOOD ORDERABLES Final R esult [facility] [address] [place] [address], * (ABNORMAL) Basic metabolic panel (07/27/2024 6:27 AM EST) Sodium 130(L) 133 - 145 mmol/L LAB CHEMISTRY METHOD 07/27/2024 8:43 AM [facility] Potassium 4.2 3.5 - 5.5 mmol/L LAB CHEMISTRY METHOD 07/27/2024 8:43 AM [facility] Chloride 93(L) 96 - 110 mmol/L LAB CHEMISTRY METHOD 07/27/2024 8:43 AM [facility] CO2 30 21 - 32 mmol/L LAB CHEMISTRY METHOD 07/27/2024 8:43 AM [facility] Anion Gap 7 3 - 11 LAB CHEMISTRY METHOD 07/27/2024 8:43 AM [facility] Glucose 182(H) 70 - 100 mg/dL LAB CHEMISTRY METHOD 07/27/2024 8:43 AM [facility] BUN 62(H) 5 - 25 mg/dL LAB CHEMISTRY METHOD 07/27/2024 8:43 AM [facility] Creatinine 3.88(H) 0.50 - 1.10 mg/dL LAB CHEMISTRY METHOD 07/27/2024 8:43 AM [facility] eGFR 11(L) >=60 mL/min/1. 73m2 LAB CHEMISTRY METHOD 07/27/2024 8:43 AM [facility] Comment:Calculation based on the??Chronic Kidney Disease Epidemiology Collaboration (CKD-EPI) equation refit??without adjustment for race. BUN/Creatinine Ratio 16.0 LAB CHEMISTRY METHOD 07/27/2024 8:43 AM [facility] Calcium 8.2(L) 8.5 - 10.5 mg/dL LAB CHEMISTRY METHOD 07/27/2024 8:43 AM [facility] Blood Venous blood specimen / Unknown Venipuncture / Unknown 07/27/2024 6:27 AM EST 07/27/2024 7:41 AM EST us Jonny Mathur MD LAB BLOOD ORDERABLES Final Re sult Performing Organization Address City/[facility]/ZIP Co de Phone Number [facility] [address] [place] [address], [place] [phone] * (ABNORMAL) POCT Glucose, blood (07/26/2024 8:23 PM EST) Glucose POCT 189(H) 70 - 100 mg/dL 07/26/2024 8:24 PM EST [facility] Blood Capillary blood specimen / Unknown 07/26/2024 8:23 PM EST 07/26/2024 8:25 PM EST us Jonny Mathur MD LAB POINT OF CARE TE ST DOCKED DEVICE UNSOLICITED RESULTS Final Result Performing Organization Address [facility]/ZIP Co de Phone Number [facility] [address] [place] [address], [place] [phone] * (ABNORMAL) POCT Glucose, blood (07/26/2024 4:28 PM EST) Glucose POCT 192(H) 70 - 100 mg/dL 07/26/2024 4:29 PM EST [facility] Blood Capillary blood specimen / Unknown 07/26/2024 4:28 PM EST 07/26/2024 4:30 PM EST us Jonny Mathur MD LAB POINT OF CARE TE ST DOCKED DEVICE UNSOLICITED RESULTS Final Result Performing Organization Address City/[facility]/ZIP Co de Phone Number [facility] [address] [place] [address], [place] [phone] * (ABNORMAL) POCT Glucose, blood (07/26/2024 11:15 AM EST) Glucose POCT 180(H) 70 - 100 mg/dL 07/26/2024 11:17 AM EST [facility] Blood Capillary blood specimen / Unknown 07/26/2024 11:15 AM EST 07/26/2024 11:18 AM EST us Jonny Mathur MD LAB POINT OF CARE TE ST DOCKED DEVICE UNSOLICITED RESULTS Final Result Performing Organization Address [facility]/ZIP Co de Phone Number [facility] [address] [place] [address], [place] [phone] * (ABNORMAL) POCT Glucose, blood (07/26/2024 8:08 AM EST) Glucose POCT 128(H) 70 - 100 mg/dL 07/26/2024 8:09 AM EST [facility] Blood Capillary blood specimen / Unknown 07/26/2024 8:08 AM EST 07/26/2024 8:10 AM EST us Jonny Mathur MD LAB POINT OF CARE TE ST DOCKED DEVICE UNSOLICITED RESULTS Final Result Performing Organization Address [facility]/ZIP Co de Phone Number [facility] [address] [place] [address], [place] [phone] * Heparin and low molecular weight anti Xa level (07/26/2024 6:06 AM EST) Heparin Anti-Xa 0.65 0.30 - 0.70 I Unit/mL LAB COAGULATION METHOD 07/26/2024 7:08 AM EST [facility] Blood Venous blood specimen / Unknown Venipuncture / Unknown 07/26/2024 6:06 AM EST 07/26/2024 6:19 AM EST Narrative [facility] - 07/26/2024 7:08 AM EST Therapeutic range listed is for Unfractionated Heparin. LMW Heparin therapeutic range: 0.50-1.20 IU/mL us Jonny Mathur MD LAB BLOOD ORDERABLES Final Re sult [facility] [address] [place] [address], [place] [phone] * (ABNORMAL) POCT Glucose, blood (07/25/2024 9:22 PM EST) Glucose POCT 183(H) 70 - 100 mg/dL 07/25/2024 9:22 PM EST [facility] Blood Capillary blood specimen / Unknown 07/25/2024 9:22 PM EST 07/25/2024 9:23 PM EST us Jonny Mathur MD LAB POINT OF CARE TE ST DOCKED DEVICE UNSOLICITED RESULTS Final Result [facility] [address] [place] [address], [place] [phone] * (ABNORMAL) POCT Glucose, blood (07/25/2024 4:02 PM EST) Glucose POCT 194(H) 70 - 100 mg/dL 07/25/2024 4:02 PM EST [facility] Blood Capillary blood specimen / Unknown 07/25/2024 4:02 PM EST 07/25/2024 4:03 PM EST us Jonyn Mathur MD LAB POINT OF CARE TE ST DOCKED DEVICE UNSOLICITED RESULTS Final Result [facility] [address] [place] [address], [place] [phone] * (ABNORMAL) POCT Glucose, blood (07/25/2024 2:56 PM EST) Glucose POCT 143(H) 70 - 100 mg/dL 07/25/2024 2:56 PM EST [facility] Blood Capillary blood specimen / Unknown 07/25/2024 2:56 PM EST 07/25/2024 2:58 PM EST Jonny Mathur MD LAB POINT OF CARE TE ST DOCKED DEVICE UNSOLICITED RESULTS Final Result Performing Organization Address City/[facility]/ZIP Co de Phone Number [facility] [address] [place] [address], [place] [phone] * (ABNORMAL) POCT Glucose, blood (07/25/2024 8:18 AM EST) [facility] Glucose POCT 212(H) 70 - 100 mg/dL 07/25/2024 8:19 AM EST [facility] Blood Capillary blood specimen / Unknown 07/25/2024 8:18 AM EST 07/25/2024 8:20 AM EST Jonny Mathur MD LAB POINT OF CARE TE ST DOCKED DEVICE UNSOLICITED RESULTS Final Result Performing Organization Address [facility]/ZIP Co de Phone Number [facility] [address] [place] [address], [place] [phone] * (ABNORMAL) CBC auto differential (07/25/2024 5:35 AM EST) [facility] WBC 14.2(H) 4.8 - 10.8 K/mcL LAB HEMETOLOGY METHOD 07/25/2024 7:21 AM [facility] RBC 3.10(L) 3.80 - 4.80 M/mcL LAB HEMETOLOGY METHOD 07/25/2024 7:21 AM [facility] Hemoglobin 8.0(L) 11.5 - 16.0 g/dL LAB HEMETOLOGY METHOD 07/25/2024 7:21 AM [facility] Hematocrit 25.7(L) 35.0 - 47.0 % LAB HEMETOLOGY METHOD 07/25/2024 7:21 AM [facility] MCV 82.1 79.0 - 98.0 FL LAB HEMETOLOGY METHOD 07/25/2024 7:21 AM [facility] MCH 25.6(L) 27.0 - 32.0 pcg LAB HEMETOLOGY METHOD 07/25/2024 7:21 AM [facility] MCHC 31.1(L) 32.0 - 37.0 g/dL LAB HEMETOLOGY METHOD 07/25/2024 7:21 AM [facility] RDW 21.7(H) 11.0 - 15.0 % LAB HEMETOLOGY METHOD 07/25/2024 7:21 AM [facility] Platelets 158 130 - 400 K/mcL LAB HEMETOLOGY METHOD 07/25/2024 7:21 AM [facility] MPV 10.6 7.0 - 11.0 FL LAB HEMETOLOGY METHOD 07/25/2024 7:21 AM [facility] NRBC 0.0 <1.0 % LAB HEMETOLOGY METHOD 07/25/2024 7:21 AM [facility] NRBC Absolute 0.00 <0.10 K/mcL LAB HEMETOLOGY METHOD 07/25/2024 7:21 AM [facility] Neutrophils Relative 83.3 % LAB HEMETOLOGY METHOD 07/25/2024 7:21 AM [facility] Lymphocytes Relative 8.9 % LAB HEMETOLOGY METHOD 07/25/2024 7:21 AM [facility] Monocytes Relative 6.3 % LAB HEMETOLOGY METHOD 07/25/2024 7:21 AM [facility] Eosinophils Relative 0.6 % LAB HEMETOLOGY METHOD 07/25/2024 7:21 AM [facility] Basophils Relative 0.1 % LAB HEMETOLOGY METHOD 07/25/2024 7:21 AM [facility] Immature Granulocytes Relative 0.8 % LAB HEMETOLOGY METHOD 07/25/2024 7:21 AM EST [facility] Neutrophils Absolute 11.87(H) 1.50 - 7.00 K/mcL LAB HEMETOLOGY METHOD 07/25/2024 7:21 AM EST [facility] Lymphocytes Absolute 1.26 1.00 - 5.00 K/mcL LAB HEMETOLOGY METHOD 07/25/2024 7:21 AM EST [facility] Monocytes Absolute 0.89 0.20 - 1.00 K/[facility] LAB HEMETOLOGY METHOD 07/25/2024 7:21 AM EST [facility] Eosinophils Absolute 0.08 0.00 - 0.50 K/mcL LAB HEMETOLOGY METHOD 07/25/2024 7:21 AM [facility] Basophils Absolute 0.01 0.00 - 0.20 K/mcL LAB HEMETOLOGY METHOD 07/25/2024 7:21 AM [facility] Immature Granulocytes Absolute 0.11(H) 0.00 - 0.03 K/[facility] LAB HEMETOLOGY METHOD 07/25/2024 7:21 AM [facility] Blood Venous blood specimen / Unknown Venipuncture / Unknown 07/25/2024 5:35 AM EST 07/25/2024 6:48 AM EST us [facility] LAB BLOOD ORDERABLES Final R esult [facility] [address] [place] [address], * Heparin and low molecular weight anti Xa level (07/25/2024 5:35 AM EST) Heparin Anti-Xa 0.61 0.30 - 0.70 I Unit/mL LAB COAGULATION METHOD 07/25/2024 7:17 AM EST [facility] Blood Venous blood specimen / Unknown Venipuncture / Unknown 07/25/2024 5:35 AM EST 07/25/2024 6:48 AM EST Narrative [facility] - 07/25/2024 7:17 AM EST Therapeutic range listed is for Unfractionated Heparin. LMW Heparin therapeutic range: 0.50-1.20 IU/mL us Lencho Stuart MD LAB BLOOD ORDERABLES Final R esult [facility] [address] [place] [address], * (ABNORMAL) Basic metabolic panel (07/25/2024 5:35 AM EST) Sodium 132(L) 133 - 145 mmol/L LAB CHEMISTRY METHOD 07/25/2024 7:57 AM [facility] Potassium 4.2 3.5 - 5.5 mmol/L LAB CHEMISTRY METHOD 07/25/2024 7:57 AM [facility] Chloride 94(L) 96 - 110 mmol/L LAB CHEMISTRY METHOD 07/25/2024 7:57 AM [facility] CO2 30 21 - 32 mmol/L LAB CHEMISTRY METHOD 07/25/2024 7:57 AM [facility] Anion Gap 8 3 - 11 LAB CHEMISTRY METHOD 07/25/2024 7:57 AM [facility] Glucose 194(H) 70 - 100 mg/dL LAB CHEMISTRY METHOD 07/25/2024 7:57 AM [facility] BUN 77(H) 5 - 25 mg/dL LAB CHEMISTRY METHOD 07/25/2024 7:57 AM [facility] Creatinine 3.91(H) 0.50 - 1.10 mg/dL LAB CHEMISTRY METHOD 07/25/2024 7:57 AM [facility] eGFR 11(L) >=60 mL/min/1. 73m2 LAB CHEMISTRY METHOD 07/25/2024 7:57 AM [facility] Comment:Calculation based on the??Chronic Kidney Disease Epidemiology Collaboration (CKD-EPI) equation refit??without adjustment for race. BUN/Creatinine Ratio 19.7 LAB CHEMISTRY METHOD 07/25/2024 7:57 AM EST [facility] Calcium 8.2(L) 8.5 - 10.5 mg/dL LAB CHEMISTRY METHOD 07/25/2024 7:57 AM EST [facility] Blood Venous blood specimen / Unknown Venipuncture / Unknown 07/25/2024 5:35 AM EST 07/25/2024 6:48 AM EST us Lencho Stuart MD LAB BLOOD ORDERABLES Final R esult [facility] [address] [place] [address], [place] [phone] * (ABNORMAL) POCT Glucose, blood (07/24/2024 7:58 PM EST) Glucose POCT 228(H) 70 - 100 mg/dL 07/24/2024 7:58 PM EST [facility] Blood Capillary blood specimen / Unknown 07/24/2024 7:58 PM EST 07/24/2024 8:00 PM EST us Lencho Stuart MD LAB POINT OF CARE TE ST DOCKED DEVICE UNSOLICITED RESULTS Final Result [facility] [address] [place] [address], [place] [phone] * (ABNORMAL) POCT Glucose, blood (07/24/2024 3:24 PM EST) Glucose POCT 239(H) 70 - 100 mg/dL 07/24/2024 3:25 PM EST [facility] POCT Comment RN Notified 07/24/2024 3:25 PM EST [facility] Blood Capillary blood specimen / Unknown 07/24/2024 3:24 PM EST 07/24/2024 3:26 PM EST us Lencho Stuart MD LAB POINT OF CARE TE ST DOCKED DEVICE UNSOLICITED RESULTS Final Result Performing Organization Address [facility]/ZIP Co de Phone Number [facility] [address] [place] [address], [place] [phone] * (ABNORMAL) POCT Glucose, blood (07/24/2024 11:39 AM EST) Glucose POCT 260(H) 70 - 100 mg/dL 07/24/2024 11:40 AM EST [facility] POCT Comment RN Notified 07/24/2024 11:40 AM EST [facility] Blood Capillary blood specimen / Unknown 07/24/2024 11:39 AM EST 07/24/2024 11:41 AM EST us Lencho Stuart MD LAB POINT OF CARE TE ST DOCKED DEVICE UNSOLICITED RESULTS Final Result Performing Organization Address City/[facility]/ZIP Co de Phone Number [facility] [address] [place] [address], [place] [phone] * (ABNORMAL) POCT Glucose, blood (07/24/2024 7:32 AM EST) Glucose POCT 301(H) 70 - 100 mg/dL 07/24/2024 7:33 AM EST [facility] POCT Comment RN Notified 07/24/2024 7:33 AM EST [facility] Blood Capillary blood specimen / Unknown 07/24/2024 7:32 AM EST 07/24/2024 7:34 AM EST us Lencho Stuart MD LAB POINT OF CARE TE ST DOCKED DEVICE UNSOLICITED RESULTS Final Result Performing Organization Address [facility]/ZIP Co de Phone Number [facility] [address] [place] [address], * Heparin and low molecular weight anti Xa level (07/24/2024 6:48 AM EST) Heparin Anti-Xa 0.60 0.30 - 0.70 I Unit/mL LAB COAGULATION METHOD 07/24/2024 7:29 AM EST [facility] Blood Venous blood specimen / Unknown Venipuncture / Unknown 07/24/2024 6:48 AM EST 07/24/2024 7:03 AM EST Narrative [facility] - 07/24/2024 7:29 AM EST Therapeutic range listed is for Unfractionated Heparin. LMW Heparin therapeutic range: 0.50-1.20 IU/mL [facility] LAB BLOOD ORDERABLES Final R esult Performing Organization Address City/[facility]/ZIP Co de Phone Number [facility] [address] [place] [address], * (ABNORMAL) CBC auto differential (07/24/2024 6:48 AM EST) WBC 13.1(H) 4.8 - 10.8 K/mcL LAB HEMETOLOGY METHOD 07/24/2024 7:30 AM [facility] RBC 3.10(L) 3.80 - 4.80 M/[facility] HEMETOLOGY METHOD 07/24/2024 7:30 AM [facility] Hemoglobin 7.7(L) 11.5 - 16.0 g/dL LAB HEMETOLOGY METHOD 07/24/2024 7:30 AM [facility] Hematocrit 25.3(L) 35.0 - 47.0 % LAB HEMETOLOGY METHOD 07/24/2024 7:30 AM [facility] MCV 81.4 79.0 - 98.0 FL LAB HEMETOLOGY METHOD 07/24/2024 7:30 AM [facility] MCH 24.8(L) 27.0 - 32.0 pcg LAB HEMETOLOGY METHOD 07/24/2024 7:30 AM [facility] MCHC 30.4(L) 32.0 - 37.0 g/dL LAB HEMETOLOGY METHOD 07/24/2024 7:30 AM [facility] RDW 21.7(H) 11.0 - 15.0 % LAB HEMETOLOGY METHOD 07/24/2024 7:30 AM [facility] Platelets 174 130 - 400 K/mcL LAB HEMETOLOGY METHOD 07/24/2024 7:30 AM [facility] MPV 10.6 7.0 - 11.0 FL LAB HEMETOLOGY METHOD 07/24/2024 7:30 AM [facility] NRBC 0.0 <1.0 % LAB HEMETOLOGY METHOD 07/24/2024 7:30 AM [facility] NRBC Absolute 0.00 <0.10 K/mcL LAB HEMETOLOGY METHOD 07/24/2024 7:30 AM [facility] Neutrophils Relative 84.4 % LAB HEMETOLOGY METHOD 07/24/2024 7:30 AM [facility] Lymphocytes Relative 6.4 % LAB HEMETOLOGY METHOD 07/24/2024 7:30 AM [facility] Monocytes Relative 8.3 % LAB HEMETOLOGY METHOD 07/24/2024 7:30 AM [facility] Eosinophils Relative 0.0 % LAB HEMETOLOGY METHOD 07/24/2024 7:30 AM [facility] Basophils Relative 0.1 % LAB HEMETOLOGY METHOD 07/24/2024 7:30 AM [facility] Immature Granulocytes Relative 0.8 % LAB HEMETOLOGY METHOD 07/24/2024 7:30 AM EST [facility] Neutrophils Absolute 11.03(H) 1.50 - 7.00 K/[facility] HEMETOLOGY METHOD 07/24/2024 7:30 AM EST [facility] Lymphocytes Absolute 0.83(L) 1.00 - 5.00 K/mcL LAB HEMETOLOGY METHOD 07/24/2024 7:30 AM EST [facility] Monocytes Absolute 1.08(H) 0.20 - 1.00 K/mcL LAB HEMETOLOGY METHOD 07/24/2024 7:30 AM EST [facility] Eosinophils Absolute 0.00 0.00 - 0.50 K/[facility] HEMETOLOGY METHOD 07/24/2024 7:30 AM EST [facility] Basophils Absolute 0.01 0.00 - 0.20 K/mcL LAB HEMETOLOGY METHOD 07/24/2024 7:30 AM [facility] Immature Granulocytes Absolute 0.11(H) 0.00 - 0.03 K/mcL LAB HEMETOLOGY METHOD 07/24/2024 7:30 AM [facility] Blood Venous blood specimen / Unknown Venipuncture / Unknown 07/24/2024 6:48 AM EST 07/24/2024 7:03 AM EST Lencho Stuart MD LAB BLOOD ORDERABLES Final R esult [facility] [address] [place] [address], * (ABNORMAL) CBC - Every 3 Days (07/24/2024 6:48 AM EST) WBC 13.1(H) 4.8 - 10.8 K/mcL LAB HEMETOLOGY METHOD 07/24/2024 7:30 AM EST [facility] RBC 3.10(L) 3.80 - 4.80 M/mcL LAB HEMETOLOGY METHOD 07/24/2024 7:30 AM [facility] Hemoglobin 7.7(L) 11.5 - 16.0 g/dL LAB HEMETOLOGY METHOD 07/24/2024 7:30 AM [facility] Hematocrit 25.3(L) 35.0 - 47.0 % LAB HEMETOLOGY METHOD 07/24/2024 7:30 AM [facility] MCV 81.4 79.0 - 98.0 FL LAB HEMETOLOGY METHOD 07/24/2024 7:30 AM [facility] MCH 24.8(L) 27.0 - 32.0 pcg LAB HEMETOLOGY METHOD 07/24/2024 7:30 AM [facility] MCHC 30.4(L) 32.0 - 37.0 g/dL LAB HEMETOLOGY METHOD 07/24/2024 7:30 AM [facility] RDW 21.7(H) 11.0 - 15.0 % LAB HEMETOLOGY METHOD 07/24/2024 7:30 AM [facility] Platelets 174 130 - 400 K/mcL LAB HEMETOLOGY METHOD 07/24/2024 7:30 AM [facility] MPV 10.6 7.0 - 11.0 FL LAB HEMETOLOGY METHOD 07/24/2024 7:30 AM [facility] NRBC 0.0 <1.0 % LAB HEMETOLOGY METHOD 07/24/2024 7:30 AM [facility] NRBC Absolute 0.00 <0.10 K/mcL LAB HEMETOLOGY METHOD 07/24/2024 7:30 AM [facility] Blood Venous blood specimen / Unknown Venipuncture / Unknown 07/24/2024 6:48 AM EST 07/24/2024 7:03 AM EST us Lencho Stuart MD LAB BLOOD ORDERABLES Final R esult [facility] [address] [place] [address], [place] [phone] * (ABNORMAL) Basic metabolic panel (07/24/2024 6:48 AM EST) Sodium 132(L) 133 - 145 mmol/L LAB CHEMISTRY METHOD 07/24/2024 8:38 AM [facility] Potassium 4.1 3.5 - 5.5 mmol/L LAB CHEMISTRY METHOD 07/24/2024 8:38 AM [facility] Chloride 94(L) 96 - 110 mmol/L LAB CHEMISTRY METHOD 07/24/2024 8:38 AM [facility] CO2 29 21 - 32 mmol/L LAB CHEMISTRY METHOD 07/24/2024 8:38 AM [facility] Anion Gap 9 3 - 11 LAB CHEMISTRY METHOD 07/24/2024 8:38 AM [facility] Glucose 286(H) 70 - 100 mg/dL LAB CHEMISTRY METHOD 07/24/2024 8:38 AM [facility] BUN 54(H) 5 - 25 mg/dL LAB CHEMISTRY METHOD 07/24/2024 8:38 AM [facility] Creatinine 2.84(H) 0.50 - 1.10 mg/dL LAB CHEMISTRY METHOD 07/24/2024 8:38 AM [facility] eGFR 16(L) >=60 mL/min/1. 73m2 LAB CHEMISTRY METHOD 07/24/2024 8:38 AM [facility] Comment:Calculation based on the??Chronic Kidney Disease Epidemiology Collaboration (CKD-EPI) equation refit??without adjustment for race. BUN/Creatinine Ratio 19.0 LAB CHEMISTRY METHOD 07/24/2024 8:38 AM [facility] Calcium 8.0(L) 8.5 - 10.5 mg/dL LAB CHEMISTRY METHOD 07/24/2024 8:38 AM EST [facility] Blood Venous blood specimen / Unknown Venipuncture / Unknown 07/24/2024 6:48 AM EST 07/24/2024 7:03 AM EST Lencho Stuart MD LAB BLOOD ORDERABLES Final R esult Performing Organization Address City/[facility]/ZIP Co de Phone Number [facility] [address] [place] [address], * Heparin and low molecular weight anti Xa level (07/24/2024 12:07 AM EST) Heparin Anti-Xa 0.69 0.30 - 0.70 I Unit/mL LAB COAGULATION METHOD 07/24/2024 12:28 AM EST [facility] Blood Venous blood specimen / Unknown Venipuncture / Unknown 07/24/2024 12:07 AM EST 07/24/2024 12:17 AM EST Narrative [facility] - 07/24/2024 12:28 AM EST Therapeutic range listed is for Unfractionated Heparin. LMW Heparin therapeutic range: 0.50-1.20 IU/mL Lencho Stuart MD LAB BLOOD ORDERABLES Final R esult [facility] [address] [place] [address], [place] [phone] * (ABNORMAL) POCT Glucose, blood (07/23/2024 7:35 PM EST) Glucose POCT 320(H) 70 - 100 mg/dL 07/23/2024 7:35 PM EST [facility] Blood Capillary blood specimen / Unknown 07/23/2024 7:35 PM EST 07/23/2024 7:37 PM EST us Lencho Stuart MD LAB POINT OF CARE TE ST DOCKED DEVICE UNSOLICITED RESULTS Final Result [facility] [address] [place] [address], [place] [phone] * Transfuse RBC (07/23/2024 6:19 PM EST) [...] Insertion of 18g/10cm [employer] Powerglide midline Lot: [id number] Exp: 2025-05-28 Indications: ??Difficult draw with frequent [...] POCT Glucose, blood (07/23/2024 4:30 PM EST) [facility] Glucose POCT 248(H) 70 - 100 mg/dL 07/23/2024 4:31 PM EST [facility] Blood Capillary blood specimen / Unknown 07/23/2024 4:30 PM EST 07/23/2024 4:32 PM EST us Lencho Stuart MD LAB POINT OF CARE TE ST DOCKED DEVICE UNSOLICITED RESULTS Final Result Performing Organization Address City/[facility]/ZIP Co de Phone Number [facility] [address] [place] [address], * (ABNORMAL) Heparin and low molecular weight anti Xa level (07/23/2024 4:08 PM EST) Heparin Anti-Xa 0.82(H) 0.30 - 0.70 I Unit/mL LAB COAGULATION METHOD 07/23/2024 4:33 PM EST [facility] Blood Venous blood specimen / Unknown Venipuncture / Unknown 07/23/2024 4:08 PM EST 07/23/2024 4:24 PM EST Narrative [facility] - 07/23/2024 4:33 PM EST Therapeutic range listed is for Unfractionated Heparin. LMW Heparin therapeutic range: 0.50-1.20 IU/mL us Lencho Stuart MD LAB BLOOD ORDERABLES Final R esult [facility] [address] [place] [address], * Type and screen (07/23/2024 12:31 PM EST) ABO Group O 07/23/2024 2:33 PM EST [facility] Rh Type Positive 07/23/2024 2:33 PM EST [facility] Antibody Screen Negative 07/23/2024 2:33 PM EST [facility] Blood Venous blood specimen / Unknown Venipuncture / Unknown 07/23/2024 12:31 PM EST 07/23/2024 12:50 PM EST Lencho Stuart MD LAB BLOOD BANK TEST ORDERABL ES Final Result Performing Organization Address [facility]/ZIP Co de Phone Number [facility] [address] [place] [address], [place] [phone] * (ABNORMAL) POCT Glucose, blood (07/23/2024 12:12 PM EST) [facility] Glucose POCT 204(H) 70 - 100 mg/dL 07/23/2024 12:13 PM EST [facility] Blood Capillary blood specimen / Unknown 07/23/2024 12:12 PM EST 07/23/2024 12:14 PM EST Lencho Stuart MD LAB POINT OF CARE TE ST DOCKED DEVICE UNSOLICITED RESULTS Final Result Performing Organization Address [facility]/ZIP Co de Phone Number [facility] [address] [place] [address], [place] [phone] * Prepare RBC: 1 Units (07/23/2024 11:14 AM EST) [facility] Product Code [id number] 07/23/2024 3:38 PM [facility] Unit Number [id number] 07/23/19 3:38 PM [facility] Crossmatch Compatible 07/23/2024 2:36 PM EST [facility] Dispense Status Transfused 07/23/2024 3:38 PM [facility] Unit ABO Rh OPOS 07/23/2024 3:38 PM [facility] Unit Expiration Date Time [id number] 07/23/2024 3:38 PM [facility] Unit Blood Type 5100 07/23/2024 3:38 PM EST [facility] Blood Venous blood specimen / Unknown 07/23/2024 11:14 AM EST 07/23/2024 12:50 PM EST Lencho Stuart MD BLOOD BANK PRODUCT ORDERABLE S Final Result Performing Organization Address City/[facility]/ZIP Co de Phone Number [facility] [address] [place] [address], * (ABNORMAL) Heparin and low molecular weight anti Xa level (07/23/2024 8:40 AM EST) Pathologist [facility] Heparin Anti-Xa 0.77(H) 0.30 - 0.70 I Unit/mL LAB COAGULATION METHOD 07/23/2024 9:05 AM EST [facility] Blood Venous blood specimen / Unknown Venipuncture / Unknown 07/23/2024 8:40 AM EST 07/23/2024 8:47 AM EST Narrative [facility] - 07/23/2024 9:05 AM EST Therapeutic range listed is for Unfractionated Heparin. LMW Heparin therapeutic range: 0.50-1.20 IU/mL Lencho Stuart MD LAB BLOOD ORDERABLES Final R esult [facility] [address] [place] [address], * (ABNORMAL) CBC auto differential (07/23/2024 5:44 AM EST) WBC 11.6(H) 4.8 - 10.8 K/mcL LAB HEMETOLOGY METHOD 07/23/2024 7:10 AM EST [facility] RBC 2.80(L) 3.80 - 4.80 M/mcL LAB HEMETOLOGY METHOD 07/23/2024 7:10 AM EST [facility] Hemoglobin 6.9(L) 11.5 - 16.0 g/dL LAB HEMETOLOGY METHOD 07/23/2024 7:10 AM [facility] Hematocrit 23.0(L) 35.0 - 47.0 % LAB HEMETOLOGY METHOD 07/23/2024 7:10 AM [facility] MCV 81.6 79.0 - 98.0 FL LAB HEMETOLOGY METHOD 07/23/2024 7:10 AM [facility] MCH 24.5(L) 27.0 - 32.0 pcg LAB HEMETOLOGY METHOD 07/23/2024 7:10 AM [facility] MCHC 30.0(L) 32.0 - 37.0 g/dL LAB HEMETOLOGY METHOD 07/23/2024 7:10 AM [facility] RDW 23.3(H) 11.0 - 15.0 % LAB HEMETOLOGY METHOD 07/23/2024 7:10 AM [facility] Platelets 206 130 - 400 K/mcL LAB HEMETOLOGY METHOD 07/23/2024 7:10 AM [facility] MPV 10.5 7.0 - 11.0 FL LAB HEMETOLOGY METHOD 07/23/2024 7:10 AM [facility] NRBC 0.0 <1.0 % LAB HEMETOLOGY METHOD 07/23/2024 7:10 AM [facility] NRBC Absolute 0.00 <0.10 K/mcL LAB HEMETOLOGY METHOD 07/23/2024 7:10 AM [facility] Neutrophils Relative 90.8 % LAB HEMETOLOGY METHOD 07/23/2024 7:10 AM [facility] Lymphocytes Relative 3.4 % LAB HEMETOLOGY METHOD 07/23/2024 7:10 AM [facility] Monocytes Relative 5.0 % LAB HEMETOLOGY METHOD 07/23/2024 7:10 AM EST [facility] Eosinophils Relative 0.0 % LAB HEMETOLOGY METHOD 07/23/2024 7:10 AM [facility] Basophils Relative 0.1 % LAB HEMETOLOGY METHOD 07/23/2024 7:10 AM [facility] Immature Granulocytes Relative 0.7 % LAB HEMETOLOGY METHOD 07/23/2024 7:10 AM EST [facility] Neutrophils Absolute 10.52(H) 1.50 - 7.00 K/mcL LAB HEMETOLOGY METHOD 07/23/2024 7:10 AM [facility] Lymphocytes Absolute 0.39(L) 1.00 - 5.00 K/mcL LAB HEMETOLOGY METHOD 07/23/2024 7:10 AM [facility] Monocytes Absolute 0.58 0.20 - 1.00 K/mcL LAB HEMETOLOGY METHOD 07/23/2024 7:10 AM EST [facility] Eosinophils Absolute 0.00 0.00 - 0.50 K/mcL LAB HEMETOLOGY METHOD 07/23/2024 7:10 AM EST [facility] Basophils Absolute 0.01 0.00 - 0.20 K/mcL LAB HEMETOLOGY METHOD 07/23/2024 7:10 AM [facility] Immature Granulocytes Absolute 0.08(H) 0.00 - 0.03 K/mcL LAB HEMETOLOGY METHOD 07/23/2024 7:10 AM [facility] Blood Venous blood specimen / Unknown Venipuncture / Unknown 07/23/2024 5:44 AM EST 07/23/2024 6:50 AM EST [facility] LAB BLOOD ORDERABLES Final R esult [facility] [address] [place] [address], * (ABNORMAL) Basic metabolic panel (07/23/2024 5:44 AM EST) Sodium 130(L) 133 - 145 mmol/L LAB CHEMISTRY METHOD 07/23/2024 8:36 AM [facility] Potassium 5.5 3.5 - 5.5 mmol/L LAB CHEMISTRY METHOD 07/23/2024 8:36 AM [facility] Chloride 92(L) 96 - 110 mmol/L LAB CHEMISTRY METHOD 07/23/2024 8:36 AM [facility] CO2 29 21 - 32 mmol/L LAB CHEMISTRY METHOD 07/23/2024 8:36 AM [facility] Anion Gap 9 3 - 11 LAB CHEMISTRY METHOD 07/23/2024 8:36 AM [facility] Glucose 378(H) 70 - 100 mg/dL LAB CHEMISTRY METHOD 07/23/2024 8:36 AM [facility] BUN 76(H) 5 - 25 mg/dL LAB CHEMISTRY METHOD 07/23/2024 8:36 AM [facility] Creatinine 4.16(H) 0.50 - 1.10 mg/dL LAB CHEMISTRY METHOD 07/23/2024 8:36 AM [facility] eGFR 10(L) >=60 mL/min/1. 73m2 LAB CHEMISTRY METHOD 07/23/2024 8:36 AM [facility] Comment:Calculation based on the??Chronic Kidney Disease Epidemiology Collaboration (CKD-EPI) equation refit??without adjustment for race. BUN/Creatinine Ratio 18.3 LAB CHEMISTRY METHOD 07/23/2024 8:36 AM [facility] Calcium 7.9(L) 8.5 - 10.5 mg/dL LAB CHEMISTRY METHOD 07/23/2024 8:36 AM [facility] Blood Venous blood specimen / Unknown Venipuncture / Unknown 07/23/2024 5:44 AM EST 07/23/2024 6:50 AM EST us Lencho Stuart MD LAB BLOOD ORDERABLES Final R esult [facility] [address] [place] [address], [place] [phone] * (ABNORMAL) Heparin and low molecular weight anti Xa level (07/23/2024 2:05 AM EST) Pathologist [facility] Heparin Anti-Xa 0.87(H) 0.30 - 0.70 I Unit/mL LAB COAGULATION METHOD 07/23/2024 2:20 AM EST [facility] Blood Venous blood specimen / Unknown Venipuncture / Unknown 07/23/2024 2:05 AM EST 07/23/2024 2:10 AM EST Narrative [facility] - 07/23/2024 2:20 AM EST Therapeutic range listed is for Unfractionated Heparin. LMW Heparin therapeutic range: 0.50-1.20 IU/mL us Lencho Stuart MD LAB BLOOD ORDERABLES Final R esult Performing Organization Address [facility]/ZIP Co de Phone Number [facility] [address] [place] [address], [place] [phone] * (ABNORMAL) POCT Glucose, blood (07/22/2024 8:10 PM EST) [facility] Glucose POCT 304(H) 70 - 100 mg/dL 07/22/2024 8:10 PM EST [facility] Blood Capillary blood specimen / Unknown 07/22/2024 8:10 PM EST 07/22/2024 8:11 PM EST us Lencho Stuart MD LAB POINT OF CARE TE ST DOCKED DEVICE UNSOLICITED RESULTS Final Result [facility] [address] [place] [address], [place] [phone] * (ABNORMAL) Hemoglobin and hematocrit (07/22/2024 6:40 PM EST) [facility] [facility] Hemoglobin 7.1(L) 11.5 - 16.0 g/dL LAB HEMETOLOGY METHOD 07/22/2024 7:24 PM EST [facility] Hematocrit 23.3(L) 35.0 - 47.0 % LAB HEMETOLOGY METHOD 07/22/2024 7:24 PM EST [facility] Blood Venous blood specimen / Unknown Venipuncture / Unknown 07/22/2024 6:40 PM EST 07/22/2024 7:20 PM EST us Fela Palomo MD LAB BLOOD ORDERABLES Final Resu lt Performing Organization Address City/[facility]/ZIP Co de Phone Number [facility] [address] [place] [address], [place] [phone] * (ABNORMAL) POCT Glucose, blood (07/22/2024 4:10 PM EST) [facility] Glucose POCT 267(H) 70 - 100 mg/dL 07/22/2024 4:11 PM EST [facility] Blood Capillary blood specimen / Unknown 07/22/2024 4:10 PM EST 07/22/2024 4:12 PM EST us Lencho Stuart MD LAB POINT OF CARE TE ST DOCKED DEVICE UNSOLICITED RESULTS Final Result Performing Organization Address City/[facility]/ZIP Co de Phone Number [facility] [address] [place] [address], [place] [phone] * IR Bx Ndl Renal Perc Left [...] Signed Date: 07/22/2024 17:00 ET Workstation ID: [id number] Transcribed By: Self Edit Transcribed Date: 07/22/2024 [...] of fentanyl administered during the procedure. Scanner: [place] [address] Dose reduction technique: AEC [...] of fentanyl administered during the procedure. Scanner: [place] [address] Dose reduction technique: AEC [...] Signed Date: 07/22/2024 17:00 ET Workstation ID: [id number] Transcribed By: Self Edit Transcribed Date: 07/22/2024 16:58 ET Miguel Quiles MD IMG IR PROCEDURES Final Result * (ABNORMAL) Prothrombin time with INR (07/22/2024 11:00 AM EST) [facility] Protime 16.3(H) 10.6 - 13.9 sec LAB COAGULATION METHOD 07/22/2024 1:11 PM EST [facility] INR 1.3 LAB COAGULATION METHOD 07/22/2024 1:11 PM EST [facility] Blood Venous blood specimen / Unknown Venipuncture / Unknown 07/22/2024 11:00 AM EST 07/22/2024 11:22 AM EST us Lencho Stuart MD LAB BLOOD ORDERABLES Final R esult [facility] [address] [place] [address], [place] [phone] * (ABNORMAL) Anti-Xa - Every 6 Hours (07/22/2024 11:00 AM EST) [facility] Heparin Anti-Xa <0.04(L) 0.30 - 0.70 I Unit/mL LAB COAGULATION METHOD 07/22/2024 12:11 PM EST [facility] Blood Venous blood specimen / Unknown Venipuncture / Unknown 07/22/2024 11:00 AM EST 07/22/2024 11:22 AM EST Narrative [facility] - 07/22/2024 12:11 PM EST Therapeutic range listed is for Unfractionated Heparin. LMW Heparin therapeutic range: 0.50-1.20 IU/mL us Lencho Stuart MD LAB BLOOD ORDERABLES Final R esult [facility] [address] [place] [address], [place] [phone] * Lavender tube (07/22/2024 10:53 AM EST) [facility] Extra Tube Hold for add-ons. 07/22/2024 1:01 PM EST [facility] Comment:Auto resulted. Blood Venous blood specimen / Unknown 07/22/2024 10:53 AM EST 07/22/2024 11:25 AM EST us Lencho Stuart MD LAB BLOOD ORDERABLES Final R esult Performing Organization Address City/[facility]/ZIP Co de Phone Number [facility] [address] [place] [address], [place] [phone] * SST tube (07/22/2024 10:53 AM EST) Extra Tube Hold for add-ons. 07/22/2024 1:01 PM EST [facility] Comment:Auto resulted. Blood Venous blood specimen / Unknown 07/22/2024 10:53 AM EST 07/22/2024 11:25 AM EST us Lencho Stuart MD LAB BLOOD ORDERABLES Final R esult Performing Organization Address [facility]/ZIP Co de Phone Number [facility] [address] [place] [address], [place] [phone] * (ABNORMAL) POCT Glucose, blood (07/22/2024 10:48 AM EST) Glucose POCT 280(H) 70 - 100 mg/dL 07/22/2024 11:08 AM EST [facility] Blood Capillary blood specimen / Unknown 07/22/2024 10:48 AM EST 07/22/2024 11:09 AM EST us Lencho Stuart MD LAB POINT OF CARE TE ST DOCKED DEVICE UNSOLICITED RESULTS Final Result Performing Organization Address City/[facility]/ZIP Co de Phone Number [facility] [address] [place] [address], [place] [phone] * (ABNORMAL) POCT Glucose, blood (07/22/2024 8:10 AM EST) Glucose POCT 300(H) 70 - 100 mg/dL 07/22/2024 8:11 AM EST [facility] Blood Capillary blood specimen / Unknown 07/22/2024 8:10 AM EST 07/22/2024 8:13 AM EST Lencho Stuart MD LAB POINT OF CARE TE ST DOCKED DEVICE UNSOLICITED RESULTS Final Result [facility] [address] [place] [address], [place] [phone] * (ABNORMAL) POCT Glucose, blood (07/22/2024 3:43 AM EST) Glucose POCT 276(H) 70 - 100 mg/dL 07/22/2024 3:44 AM EST [facility] Blood Capillary blood specimen / Unknown 07/22/2024 3:43 AM EST 07/22/2024 3:45 AM EST Lencho Stuart MD LAB POINT OF CARE TE ST DOCKED DEVICE UNSOLICITED RESULTS Final Result [facility] [address] [place] [address], [place] [phone] * (ABNORMAL) CBC auto differential (07/22/2024 3:11 AM EST) WBC 9.6 4.8 - 10.8 K/[facility] LAB HEMETOLOGY METHOD 07/22/2024 3:32 AM EST [facility] RBC 3.00(L) 3.80 - 4.80 M/[facility] LAB HEMETOLOGY METHOD 07/22/2024 3:32 AM EST [facility] Hemoglobin 7.2(L) 11.5 - 16.0 g/dL LAB HEMETOLOGY METHOD 07/22/2024 3:32 AM [facility] Hematocrit 24.3(L) 35.0 - 47.0 % LAB HEMETOLOGY METHOD 07/22/2024 3:32 AM [facility] MCV 80.5 79.0 - 98.0 FL LAB HEMETOLOGY METHOD 07/22/2024 3:32 AM [facility] MCH 23.8(L) 27.0 - 32.0 pcg LAB HEMETOLOGY METHOD 07/22/2024 3:32 AM [facility] MCHC 29.6(L) 32.0 - 37.0 g/dL LAB HEMETOLOGY METHOD 07/22/2024 3:32 AM [facility] RDW 23.6(H) 11.0 - 15.0 % LAB HEMETOLOGY METHOD 07/22/2024 3:32 AM [facility] Platelets 169 130 - 400 K/mcL LAB HEMETOLOGY METHOD 07/22/2024 3:32 AM [facility] MPV 9.7 7.0 - 11.0 FL LAB HEMETOLOGY METHOD 07/22/2024 3:32 AM [facility] NRBC 0.0 <1.0 % LAB HEMETOLOGY METHOD 07/22/2024 3:32 AM [facility] NRBC Absolute 0.00 <0.10 K/mcL LAB HEMETOLOGY METHOD 07/22/2024 3:32 AM [facility] Neutrophils Relative 95.2 % LAB HEMETOLOGY METHOD 07/22/2024 3:32 AM [facility] Lymphocytes Relative 3.3 % LAB HEMETOLOGY METHOD 07/22/2024 3:32 AM [facility] Monocytes Relative 0.7 % LAB HEMETOLOGY METHOD 07/22/2024 3:32 AM EST [facility] Eosinophils Relative 0.0 % LAB HEMETOLOGY METHOD 07/22/2024 3:32 AM [facility] Basophils Relative 0.1 % LAB HEMETOLOGY METHOD 07/22/2024 3:32 AM [facility] Immature Granulocytes Relative 0.7 % LAB HEMETOLOGY METHOD 07/22/2024 3:32 AM EST [facility] Neutrophils Absolute 9.13(H) 1.50 - 7.00 K/mcL LAB HEMETOLOGY METHOD 07/22/2024 3:32 AM EST [facility] Lymphocytes Absolute 0.32(L) 1.00 - 5.00 K/mcL LAB HEMETOLOGY METHOD 07/22/2024 3:32 AM [facility] Monocytes Absolute 0.07(L) 0.20 - 1.00 K/mcL LAB HEMETOLOGY METHOD 07/22/2024 3:32 AM EST [facility] Eosinophils Absolute 0.00 0.00 - 0.50 K/mcL LAB HEMETOLOGY METHOD 07/22/2024 3:32 AM EST [facility] Basophils Absolute 0.01 0.00 - 0.20 K/mcL LAB HEMETOLOGY METHOD 07/22/2024 3:32 AM [facility] Immature Granulocytes Absolute 0.07(H) 0.00 - 0.03 K/mcL LAB HEMETOLOGY METHOD 07/22/2024 3:32 AM EST [facility] Blood Venous blood specimen / Unknown Venipuncture / Unknown 07/22/2024 3:11 AM EST 07/22/2024 3:23 AM EST us Estdimas Stuart MD LAB BLOOD ORDERABLES Final R esult [facility] [address] [place] [address], * (ABNORMAL) Basic metabolic panel (07/22/2024 3:11 AM EST) Sodium 132(L) 133 - 145 mmol/L LAB CHEMISTRY METHOD 07/22/2024 4:20 AM [facility] Potassium 5.0 3.5 - 5.5 mmol/L LAB CHEMISTRY METHOD 07/22/2024 4:20 AM [facility] Chloride 95(L) 96 - 110 mmol/L LAB CHEMISTRY METHOD 07/22/2024 4:20 AM [facility] CO2 27 21 - 32 mmol/L LAB CHEMISTRY METHOD 07/22/2024 4:20 AM [facility] Anion Gap 10 3 - 11 LAB CHEMISTRY METHOD 07/22/2024 4:20 AM [facility] Glucose 264(H) 70 - 100 mg/dL LAB CHEMISTRY METHOD 07/22/2024 4:20 AM [facility] BUN 40(H) 5 - 25 mg/dL LAB CHEMISTRY METHOD 07/22/2024 4:20 AM [facility] Creatinine 2.87(H) 0.50 - 1.10 mg/dL LAB CHEMISTRY METHOD 07/22/2024 4:20 AM [facility] eGFR 16(L) >=60 mL/min/1. 73m2 LAB CHEMISTRY METHOD 07/22/2024 4:20 AM [facility] Comment:Calculation based on the??Chronic Kidney Disease Epidemiology Collaboration (CKD-EPI) equation refit??without adjustment for race. BUN/Creatinine Ratio 13.9 LAB CHEMISTRY METHOD 07/22/2024 4:20 AM [facility] Calcium 7.4(L) 8.5 - 10.5 mg/dL LAB CHEMISTRY METHOD 07/22/2024 4:20 AM [facility] Blood Venous blood specimen / Unknown Venipuncture / Unknown 07/22/2024 3:11 AM EST 07/22/2024 4:20 AM EST us Lencho Stuart MD LAB BLOOD ORDERABLES Final R esult [facility] [address] [place] [address], [place] [phone] * (ABNORMAL) Anti-Xa - Every 6 Hours (07/22/2024 3:09 AM EST) Heparin Anti-Xa 0.26(L) 0.30 - 0.70 I Unit/mL LAB COAGULATION METHOD 07/22/2024 3:33 AM EST [facility] Blood Venous blood specimen / Unknown Venipuncture / Unknown 07/22/2024 3:09 AM EST 07/22/2024 3:23 AM EST Narrative [facility] - 07/22/2024 3:33 AM EST Therapeutic range listed is for Unfractionated Heparin. LMW Heparin therapeutic range: 0.50-1.20 IU/mL us Lencho Stuart MD LAB BLOOD ORDERABLES Final R esult Performing Organization Address City/[facility]/ZIP Co de Phone Number [facility] [address] [place] [address], [place] [phone] * (ABNORMAL) POCT Glucose, blood (07/21/2024 8:10 PM EST) Pathologist [facility] Glucose POCT 172(H) 70 - 100 mg/dL 07/21/2024 8:11 PM EST [facility] Blood Capillary blood specimen / Unknown 07/21/2024 8:10 PM EST 07/21/2024 8:12 PM EST us Lencho Stuart MD LAB POINT OF CARE TE ST DOCKED DEVICE UNSOLICITED RESULTS Final Result [facility] [address] [place] [address], [place] [phone] * (ABNORMAL) Heparin and low molecular weight anti Xa level (07/21/2024 8:02 PM EST) [facility] Signature Heparin Anti-Xa 0.27(L) 0.30 - 0.70 I Unit/mL LAB COAGULATION METHOD 07/21/2024 8:37 PM EST [facility] Blood Venous blood specimen / Unknown Venipuncture / Unknown 07/21/2024 8:02 PM EST 07/21/2024 8:26 PM EST Narrative [facility] - 07/21/2024 8:37 PM EST Therapeutic range listed is for Unfractionated Heparin. LMW Heparin therapeutic range: 0.50-1.20 IU/mL us Lencho Stuart MD LAB BLOOD ORDERABLES Final R esult [facility] [address] [place] [address], [place] [phone] * (ABNORMAL) POCT Glucose, blood (07/21/2024 5:04 PM EST) Glucose POCT 175(H) 70 - 100 mg/dL 07/21/2024 5:05 PM EST [facility] Blood Capillary blood specimen / Unknown 07/21/2024 5:04 PM EST 07/21/2024 5:06 PM EST us Lencho Stuart MD LAB POINT OF CARE TE ST DOCKED DEVICE UNSOLICITED RESULTS Final Result [facility] [address] [place] [address], [place] [phone] * POCT Glucose, blood (07/21/2024 1:57 PM EST) Glucose POCT 96 70 - 100 mg/dL 07/21/2024 1:58 PM [facility] Blood Capillary blood specimen / Unknown 07/21/2024 1:57 PM EST 07/21/2024 1:59 PM EST [facility] LAB POINT OF CARE TE ST DOCKED DEVICE UNSOLICITED RESULTS Final Result [facility] [address] [place] [address], * (ABNORMAL) Complete blood count (07/21/2024 8:55 AM EST) WBC 18.9(H) 4.8 - 10.8 K/mcL LAB HEMETOLOGY METHOD 07/21/2024 9:21 AM [facility] RBC 3.00(L) 3.80 - 4.80 M/mcL LAB HEMETOLOGY METHOD 07/21/2024 9:21 AM [facility] Hemoglobin 7.3(L) 11.5 - 16.0 g/dL LAB HEMETOLOGY METHOD 07/21/2024 9:21 AM [facility] Hematocrit 23.7(L) 35.0 - 47.0 % LAB HEMETOLOGY METHOD 07/21/2024 9:21 AM [facility] MCV 80.3 79.0 - 98.0 FL LAB HEMETOLOGY METHOD 07/21/2024 9:21 AM [facility] MCH 24.7(L) 27.0 - 32.0 pcg LAB HEMETOLOGY METHOD 07/21/2024 9:21 AM [facility] MCHC 30.8(L) 32.0 - 37.0 g/dL LAB HEMETOLOGY METHOD 07/21/2024 9:21 AM [facility] RDW 23.7(H) 11.0 - 15.0 % LAB HEMETOLOGY METHOD 07/21/2024 9:21 AM EST [facility] Platelets 195 130 - 400 K/mcL LAB HEMETOLOGY METHOD 07/21/2024 9:21 AM EST [facility] MPV 10.2 7.0 - 11.0 FL LAB HEMETOLOGY METHOD 07/21/2024 9:21 AM EST [facility] NRBC 0.0 <1.0 % LAB HEMETOLOGY METHOD 07/21/2024 9:21 AM EST [facility] NRBC Absolute 0.00 <0.10 K/mcL LAB HEMETOLOGY METHOD 07/21/2024 9:21 AM [facility] Blood Venous blood specimen / Unknown Venipuncture / Unknown 07/21/2024 8:55 AM EST 07/21/2024 9:11 AM EST Lencho Stuart MD LAB BLOOD ORDERABLES Final R esult [facility] [address] [place] [address], * (ABNORMAL) Basic metabolic panel (07/21/2024 8:55 AM EST) Sodium 130(L) 133 - 145 mmol/L LAB CHEMISTRY METHOD 07/21/2024 9:50 AM [facility] Potassium 4.8 3.5 - 5.5 mmol/L LAB CHEMISTRY METHOD 07/21/2024 9:50 AM [facility] Chloride 92(L) 96 - 110 mmol/L LAB CHEMISTRY METHOD 07/21/2024 9:50 AM EST [facility] CO2 29 21 - 32 mmol/L LAB CHEMISTRY METHOD 07/21/2024 9:50 AM [facility] Anion Gap 9 3 - 11 LAB CHEMISTRY METHOD 07/21/2024 9:50 AM EST [facility] Glucose 142(H) 70 - 100 mg/dL LAB CHEMISTRY METHOD 07/21/2024 9:50 AM [facility] BUN 63(H) 5 - 25 mg/dL LAB CHEMISTRY METHOD 07/21/2024 9:50 AM [facility] Creatinine 5.05(H) 0.50 - 1.10 mg/dL LAB CHEMISTRY METHOD 07/21/2024 9:50 AM [facility] eGFR 8(L) >=60 mL/min/1. 73m2 LAB CHEMISTRY METHOD 07/21/2024 9:50 AM [facility] Comment:Calculation based on the??Chronic Kidney Disease Epidemiology Collaboration (CKD-EPI) equation refit??without adjustment for race. BUN/Creatinine Ratio 12.5 LAB CHEMISTRY METHOD 07/21/2024 9:50 AM [facility] Calcium 7.6(L) 8.5 - 10.5 mg/dL LAB CHEMISTRY METHOD 07/21/2024 9:50 AM [facility] Blood Venous blood specimen / Unknown Venipuncture / Unknown 07/21/2024 8:55 AM EST 07/21/2024 9:10 AM EST us Lencho Stuart MD LAB BLOOD ORDERABLES Final R esult [facility] [address] [place] [address], * (ABNORMAL) POCT Glucose, blood (07/21/2024 8:03 AM EST) Glucose POCT 159(H) 70 - 100 mg/dL 07/21/2024 8:04 AM [facility] Blood Capillary blood specimen / Unknown 07/21/2024 8:03 AM EST 07/21/2024 8:05 AM EST us Lencho Stuart MD LAB POINT OF CARE TE ST DOCKED DEVICE UNSOLICITED RESULTS Final Result Performing Organization Address [facility]/ZIP Co de Phone Number [facility] [address] [place] [address], * SST tube (07/21/2024 5:41 AM EST) [facility] Extra Tube Hold for add-ons. 07/21/2024 9:01 AM EST [facility] Comment:Auto resulted. Blood Venous blood specimen / Unknown 07/21/2024 5:41 AM EST 07/21/2024 7:02 AM EST [facility] LAB BLOOD ORDERABLES Final R esult Performing Organization Address [facility]/ZIP Co de Phone Number [facility] [address] [place] [address], * (ABNORMAL) CBC - Every 3 Days (07/21/2024 5:12 AM EST) [facility] WBC 18.8(H) 4.8 - 10.8 K/[facility] LAB HEMETOLOGY METHOD 07/21/2024 7:22 AM [facility] RBC 2.90(L) 3.80 - 4.80 M/[facility] LAB HEMETOLOGY METHOD 07/21/2024 7:22 AM [facility] Hemoglobin 7.3(L) 11.5 - 16.0 g/dL LAB HEMETOLOGY METHOD 07/21/2024 7:22 AM [facility] Hematocrit 23.6(L) 35.0 - 47.0 % LAB HEMETOLOGY METHOD 07/21/2024 7:22 AM [facility] MCV 81.1 79.0 - 98.0 FL LAB HEMETOLOGY METHOD 07/21/2024 7:22 AM [facility] MCH 25.1(L) 27.0 - 32.0 pcg LAB HEMETOLOGY METHOD 07/21/2024 7:22 AM EST [facility] MCHC 30.9(L) 32.0 - 37.0 g/dL LAB HEMETOLOGY METHOD 07/21/2024 7:22 AM EST [facility] RDW 23.7(H) 11.0 - 15.0 % LAB HEMETOLOGY METHOD 07/21/2024 7:22 AM EST [facility] Platelets 200 130 - 400 K/mcL LAB HEMETOLOGY METHOD 07/21/2024 7:22 AM EST [facility] MPV 10.5 7.0 - 11.0 FL LAB HEMETOLOGY METHOD 07/21/2024 7:22 AM EST [facility] NRBC 0.0 <1.0 % LAB HEMETOLOGY METHOD 07/21/2024 7:22 AM EST [facility] NRBC Absolute 0.00 <0.10 K/mcL LAB HEMETOLOGY METHOD 07/21/2024 7:22 AM EST [facility] Blood Venous blood specimen / Unknown Venipuncture / Unknown 07/21/2024 5:12 AM EST 07/21/2024 6:58 AM EST [facility] LAB BLOOD ORDERABLES Final R esult [facility] [address] [place] [address], * (ABNORMAL) POCT Glucose, blood (07/21/2024 2:47 AM EST) Glucose POCT 144(H) 70 - 100 mg/dL 07/21/2024 2:48 AM EST [facility] Blood Capillary blood specimen / Unknown 07/21/2024 2:47 AM EST 07/21/2024 2:49 AM EST Lencho Stuart MD LAB POINT OF CARE TE ST DOCKED DEVICE UNSOLICITED RESULTS Final Result Performing Organization Address City/[facility]/ZIP Co de Phone Number [facility] [address] [place] [address], [place] [phone] * (ABNORMAL) POCT Glucose, blood (07/20/2024 8:11 PM EST) Glucose POCT 140(H) 70 - 100 mg/dL 07/20/2024 8:12 PM EST [facility] Blood Capillary blood specimen / Unknown 07/20/2024 8:11 PM EST 07/20/2024 8:13 PM EST Lencho Stuart MD LAB POINT OF CARE TE ST DOCKED DEVICE UNSOLICITED RESULTS Final Result Performing Organization Address [facility]/ZIP Co de Phone Number [facility] [address] [place] [address], [place] [phone] * (ABNORMAL) Anti-Xa - Every 6 Hours (07/20/2024 7:45 PM EST) [facility] Heparin Anti-Xa <0.04(L) 0.30 - 0.70 I Unit/mL LAB COAGULATION METHOD 07/20/2024 9:02 PM EST [facility] Blood Venous blood specimen / Unknown Venipuncture / Unknown 07/20/2024 7:45 PM EST 07/20/2024 8:01 PM EST Narrative [facility] - 07/20/2024 9:02 PM EST Therapeutic range listed is for Unfractionated Heparin. LMW Heparin therapeutic range: 0.50-1.20 IU/mL eLncho Stuart MD LAB BLOOD ORDERABLES Final R esult Performing Organization Address City/[facility]/ZIP Co de Phone Number [facility] [address] [place] [address], [place] [phone] * (ABNORMAL) POCT Glucose, blood (07/20/2024 4:21 PM EST) Glucose POCT 167(H) 70 - 100 mg/dL 07/20/2024 4:23 PM EST [facility] Blood Capillary blood specimen / Unknown 07/20/2024 4:21 PM EST 07/20/2024 4:24 PM EST us Lencho Stuart MD LAB POINT OF CARE TE ST DOCKED DEVICE UNSOLICITED RESULTS Final Result Performing Organization Address City/[facility]/ZIP Co de Phone Number [facility] [address] [place] [address], [place] [phone] * Activated Partial Thromboplastin Time - STAT (07/20/2024 2:30 PM EST) [facility] aPTT 30.0 24.1 - 39.3 sec LAB COAGULATION METHOD 07/20/2024 3:06 PM EST [facility] Blood Venous blood specimen / Unknown Venipuncture / Unknown 07/20/2024 2:30 PM EST 07/20/2024 2:52 PM EST us Lencho Stuart MD LAB BLOOD ORDERABLES Final R esult [facility] [address] [place] [address], [place] [phone] * (ABNORMAL) Prothrombin Time with INR - STAT (07/20/2024 2:30 PM EST) [facility] Protime 17.6(H) 10.6 - 13.9 sec LAB COAGULATION METHOD 07/20/2024 3:06 PM EST [facility] INR 1.4 LAB COAGULATION METHOD 07/20/2024 3:06 PM EST [facility] Blood Venous blood specimen / Unknown Venipuncture / Unknown 07/20/2024 2:30 PM EST 07/20/2024 2:52 PM EST us Lencho Stuart MD LAB BLOOD ORDERABLES Final R esult Performing Organization Address [facility]/ZIP Co de Phone Number [facility] [address] [place] [address], [place] [phone] * (ABNORMAL) POCT Glucose, blood (07/20/2024 11:23 AM EST) Glucose POCT 139(H) 70 - 100 mg/dL 07/20/2024 11:24 AM EST [facility] Blood Capillary blood specimen / Unknown 07/20/2024 11:23 AM EST 07/20/2024 11:26 AM EST us Lencho Stuart MD LAB POINT OF CARE TE ST DOCKED DEVICE UNSOLICITED RESULTS Final Result Performing Organization Address [facility]/ZIP Co de Phone Number [facility] [address] [place] [address], [place] [phone] * (ABNORMAL) POCT Glucose, blood (07/20/2024 8:20 AM EST) Glucose POCT 132(H) 70 - 100 mg/dL 07/20/2024 8:20 AM EST [facility] Blood Capillary blood specimen / Unknown 07/20/2024 8:20 AM EST 07/20/2024 8:21 AM EST us Lencho Stuart MD LAB POINT OF CARE TE ST DOCKED DEVICE UNSOLICITED RESULTS Final Result Performing Organization Address City/[facility]/ZIP Co de Phone Number [facility] [address] [place] [address], [place] [phone] * (ABNORMAL) CBC auto differential (07/20/2024 5:46 AM EST) [facility] WBC 20.9(H) 4.8 - 10.8 K/mcL LAB HEMETOLOGY METHOD 07/20/2024 7:07 AM [facility] RBC 3.00(L) 3.80 - 4.80 M/mcL LAB HEMETOLOGY METHOD 07/20/2024 7:07 AM [facility] Hemoglobin 7.3(L) 11.5 - 16.0 g/dL LAB HEMETOLOGY METHOD 07/20/2024 7:07 AM [facility] Hematocrit 23.6(L) 35.0 - 47.0 % LAB HEMETOLOGY METHOD 07/20/2024 7:07 AM [facility] MCV 77.9(L) 79.0 - 98.0 FL LAB HEMETOLOGY METHOD 07/20/2024 7:07 AM [facility] MCH 24.1(L) 27.0 - 32.0 pcg LAB HEMETOLOGY METHOD 07/20/2024 7:07 AM [facility] MCHC 30.9(L) 32.0 - 37.0 g/dL LAB HEMETOLOGY METHOD 07/20/2024 7:07 AM [facility] RDW 23.9(H) 11.0 - 15.0 % LAB HEMETOLOGY METHOD 07/20/2024 7:07 AM [facility] Platelets 217 130 - 400 K/mcL LAB HEMETOLOGY METHOD 07/20/2024 7:07 AM [facility] MPV 9.8 7.0 - 11.0 FL LAB HEMETOLOGY METHOD 07/20/2024 7:07 AM [facility] NRBC 0.0 <1.0 % LAB HEMETOLOGY METHOD 07/20/2024 7:07 AM [facility] NRBC Absolute 0.00 <0.10 K/mcL LAB HEMETOLOGY METHOD 07/20/2024 7:07 AM [facility] Neutrophils Relative 86.5 % LAB HEMETOLOGY METHOD 07/20/2024 7:07 AM [facility] Lymphocytes Relative 3.8 % LAB HEMETOLOGY METHOD 07/20/2024 7:07 AM [facility] [facility] Monocytes Relative 5.5 % LAB HEMETOLOGY METHOD 07/20/2024 7:07 AM [facility] Eosinophils Relative 2.7 % LAB HEMETOLOGY METHOD 07/20/2024 7:07 AM [facility] Basophils Relative 0.2 % LAB HEMETOLOGY METHOD 07/20/2024 7:07 AM [facility] Immature Granulocytes Relative 1.3 % LAB HEMETOLOGY METHOD 07/20/2024 7:07 AM [facility] Neutrophils Absolute 18.10(H) 1.50 - 7.00 K/mcL LAB HEMETOLOGY METHOD 07/20/2024 7:07 AM [facility] Lymphocytes Absolute 0.80(L) 1.00 - 5.00 K/mcL LAB HEMETOLOGY METHOD 07/20/2024 7:07 AM [facility] Monocytes Absolute 1.16(H) 0.20 - 1.00 K/mcL LAB HEMETOLOGY METHOD 07/20/2024 7:07 AM [facility] Eosinophils Absolute 0.56(H) 0.00 - 0.50 K/mcL LAB HEMETOLOGY METHOD 07/20/2024 7:07 AM [facility] Basophils Absolute 0.04 0.00 - 0.20 K/mcL LAB HEMETOLOGY METHOD 07/20/2024 7:07 AM [facility] Immature Granulocytes Absolute 0.27(H) 0.00 - 0.03 K/mcL LAB HEMETOLOGY METHOD 07/20/2024 7:07 AM [facility] Blood Venous blood specimen / Unknown Venipuncture / Unknown 07/20/2024 5:46 AM EST 07/20/2024 6:38 AM EST Lencho Stuart MD LAB BLOOD ORDERABLES Final R esult [facility] [address] [place] [address], * (ABNORMAL) CBC - Every 3 Days (07/20/2024 5:46 AM EST) WBC 20.9(H) 4.8 - 10.8 K/mcL LAB HEMETOLOGY METHOD 07/20/2024 7:07 AM [facility] RBC 3.00(L) 3.80 - 4.80 M/mcL LAB HEMETOLOGY METHOD 07/20/2024 7:07 AM [facility] Hemoglobin 7.3(L) 11.5 - 16.0 g/dL LAB HEMETOLOGY METHOD 07/20/2024 7:07 AM [facility] Hematocrit 23.6(L) 35.0 - 47.0 % LAB HEMETOLOGY METHOD 07/20/2024 7:07 AM [facility] MCV 77.9(L) 79.0 - 98.0 FL LAB HEMETOLOGY METHOD 07/20/2024 7:07 AM [facility] MCH 24.1(L) 27.0 - 32.0 pcg LAB HEMETOLOGY METHOD 07/20/2024 7:07 AM [facility] MCHC 30.9(L) 32.0 - 37.0 g/dL LAB HEMETOLOGY METHOD 07/20/2024 7:07 AM [facility] RDW 23.9(H) 11.0 - 15.0 % LAB HEMETOLOGY METHOD 07/20/2024 7:07 AM EST [facility] Platelets 217 130 - 400 K/mcL LAB HEMETOLOGY METHOD 07/20/2024 7:07 AM EST [facility] MPV 9.8 7.0 - 11.0 FL LAB HEMETOLOGY METHOD 07/20/2024 7:07 AM EST [facility] NRBC 0.0 <1.0 % LAB HEMETOLOGY METHOD 07/20/2024 7:07 AM EST [facility] NRBC Absolute 0.00 <0.10 K/mcL LAB HEMETOLOGY METHOD 07/20/2024 7:07 AM EST [facility] Blood Venous blood specimen / Unknown Venipuncture / Unknown 07/20/2024 5:46 AM EST 07/20/2024 6:38 AM EST us Kwesi Guido MD LAB BLOOD ORDERABLES F inal Result [facility] [address] [place] [address], [place] [phone] * Heparin and low molecular weight anti Xa level (07/20/2024 5:46 AM EST) Heparin Anti-Xa 0.36 0.30 - 0.70 I Unit/mL LAB COAGULATION METHOD 07/20/2024 7:15 AM EST [facility] Blood Venous blood specimen / Unknown Venipuncture / Unknown 07/20/2024 5:46 AM EST 07/20/2024 6:40 AM EST Narrative [facility] - 07/20/2024 7:15 AM EST Therapeutic range listed is for Unfractionated Heparin. LMW Heparin therapeutic range: 0.50-1.20 IU/mL us Lencho Stuart MD LAB BLOOD ORDERABLES Final R esult [facility] [address] [place] [address], * (ABNORMAL) Basic metabolic panel (07/20/2024 5:46 AM EST) Sodium 132(L) 133 - 145 mmol/L LAB CHEMISTRY METHOD 07/20/2024 8:03 AM [facility] Potassium 4.2 3.5 - 5.5 mmol/L LAB CHEMISTRY METHOD 07/20/2024 8:03 AM [facility] Chloride 95(L) 96 - 110 mmol/L LAB CHEMISTRY METHOD 07/20/2024 8:03 AM [facility] CO2 29 21 - 32 mmol/L LAB CHEMISTRY METHOD 07/20/2024 8:03 AM [facility] Anion Gap 8 3 - 11 LAB CHEMISTRY METHOD 07/20/2024 8:03 AM [facility] Glucose 113(H) 70 - 100 mg/dL LAB CHEMISTRY METHOD 07/20/2024 8:03 AM [facility] BUN 41(H) 5 - 25 mg/dL LAB CHEMISTRY METHOD 07/20/2024 8:03 AM [facility] Creatinine 3.68(H) 0.50 - 1.10 mg/dL LAB CHEMISTRY METHOD 07/20/2024 8:03 AM [facility] eGFR 12(L) >=60 mL/min/1. 73m2 LAB CHEMISTRY METHOD 07/20/2024 8:03 AM [facility] Comment:Calculation based on the??Chronic Kidney Disease Epidemiology Collaboration (CKD-EPI) equation refit??without adjustment for race. BUN/Creatinine Ratio 11.1 LAB CHEMISTRY METHOD 07/20/2024 8:03 AM [facility] Calcium 7.3(L) 8.5 - 10.5 mg/dL LAB CHEMISTRY METHOD 07/20/2024 8:03 AM [facility] Blood Venous blood specimen / Unknown Venipuncture / Unknown 07/20/2024 5:46 AM EST 07/20/2024 6:38 AM EST us Lencho Stuart MD LAB BLOOD ORDERABLES Final R esult Performing Organization Address [facility]/ZIP Co de Phone Number [facility] [address] [place] [address], [place] [phone] * (ABNORMAL) POCT Glucose, blood (07/19/2024 8:18 PM EST) Glucose POCT 146(H) 70 - 100 mg/dL 07/19/2024 8:18 PM EST [facility] Blood Capillary blood specimen / Unknown 07/19/2024 8:18 PM EST 07/19/2024 8:19 PM EST us Lencho Stuart MD LAB POINT OF CARE TE ST DOCKED DEVICE UNSOLICITED RESULTS Final Result Performing Organization Address [facility]/ZIP Co de Phone Number [facility] [address] [place] [address], [place] [phone] * (ABNORMAL) POCT Glucose, blood (07/19/2024 7:29 PM EST) Glucose POCT 152(H) 70 - 100 mg/dL 07/19/2024 7:30 PM EST [facility] Blood Capillary blood specimen / Unknown 07/19/2024 7:29 PM EST 07/19/2024 7:31 PM EST us Lencho Stuart MD LAB POINT OF CARE TE ST DOCKED DEVICE UNSOLICITED RESULTS Final Result Performing Organization Address City/[facility]/ZIP Co de Phone Number [facility] [address] [place] [address], [place] [phone] * (ABNORMAL) POCT Glucose, blood (07/19/2024 4:01 PM EST) Glucose POCT 139(H) 70 - 100 mg/dL 07/19/2024 4:02 PM EST [facility] Blood Capillary blood specimen / Unknown 07/19/2024 4:01 PM EST 07/19/2024 4:03 PM EST Lencho Stuart MD LAB POINT OF CARE TE ST DOCKED DEVICE UNSOLICITED RESULTS Final Result Performing Organization Address [facility]/ZIP Co de Phone Number [facility] [address] [place] [address], [place] [phone] * (ABNORMAL) Hemoglobin and hematocrit (07/19/2024 2:31 PM EST) Hemoglobin 7.6(L) 11.5 - 16.0 g/dL LAB HEMETOLOGY METHOD 07/19/2024 3:11 PM [facility] Hematocrit 23.8(L) 35.0 - 47.0 % LAB HEMETOLOGY METHOD 07/19/2024 3:11 PM EST [facility] Blood Venous blood specimen / Unknown Venipuncture / Unknown 07/19/2024 2:31 PM EST 07/19/2024 3:05 PM EST Lencho Stuart MD LAB BLOOD ORDERABLES Final R esult [facility] [address] [place] [address], [place] [phone] * Creatinine, urine, random (07/19/2024 12:01 PM EST) Creatinine, Urine 41.0 mg/dL LAB CHEMISTRY METHOD 07/19/2024 1:17 PM EST [facility] Urine Urine specimen obtained by clean catch procedure / Unknown Non-blood Collection / Unknown 07/19/2024 12:01 PM EST 07/19/2024 12:30 PM EST us Miguel Quiles MD LAB URINE ORDERABLES Final Res ult Performing Organization Address City/[facility]/ZIP Co de Phone Number [facility] [address] [place] [address], [place] [phone] * (ABNORMAL) Microalbumin creatinine urine ratio (07/19/2024 12:01 PM EST) Creatinine, Urine 41.0 mg/dL LAB CHEMISTRY METHOD 07/19/2024 1:46 PM EST [facility] Microalb, Ur 1,480.0(H ) 0.0 - 29.0 mg/L LAB CHEMISTRY METHOD 07/19/2024 1:46 PM EST [facility] Microalb/Crea t Ratio 3,610(H) <30 mg/g creat LAB CHEMISTRY METHOD 07/19/2024 1:46 PM EST [facility] Urine Urine specimen obtained by clean catch procedure / Unknown Non-blood Collection / Unknown 07/19/2024 12:01 PM EST 07/19/2024 12:30 PM EST us Miguel Quiles MD LAB URINE ORDERABLES Final Res ult Performing Organization Address City/[facility]/ZIP Co de Phone Number [facility] [address] [place] [address], [place] [phone] * (ABNORMAL) POCT Glucose, blood (07/19/2024 11:32 AM EST) Glucose POCT 132(H) 70 - 100 mg/dL 07/19/2024 11:33 AM EST [facility] Blood Capillary blood specimen / Unknown 07/19/2024 11:32 AM EST 07/19/2024 11:34 AM EST us Lencho Stuart MD LAB POINT OF CARE TE ST DOCKED DEVICE UNSOLICITED RESULTS Final Result [facility] [address] [place] [address], [place] [phone] * (ABNORMAL) POCT Glucose, blood (07/19/2024 9:07 AM EST) Glucose POCT 117(H) 70 - 100 mg/dL 07/19/2024 9:07 AM EST [facility] Blood Capillary blood specimen / Unknown 07/19/2024 9:07 AM EST 07/19/2024 9:09 AM EST Lencho Stuart MD LAB POINT OF CARE TE ST DOCKED DEVICE UNSOLICITED RESULTS Final Result [facility] [address] [place] [address], [place] [phone] * (ABNORMAL) CBC auto differential (07/19/2024 7:55 AM EST) WBC 25.0(H) 4.8 - 10.8 K/mcL LAB HEMETOLOGY METHOD 07/19/2024 8:36 AM [facility] RBC 2.80(L) 3.80 - 4.80 M/mcL LAB HEMETOLOGY METHOD 07/19/2024 8:36 AM [facility] Hemoglobin 7.0(L) 11.5 - 16.0 g/dL LAB HEMETOLOGY METHOD 07/19/2024 8:36 AM [facility] Hematocrit 22.2(L) 35.0 - 47.0 % LAB HEMETOLOGY METHOD 07/19/2024 8:36 AM [facility] MCV 79.0 79.0 - 98.0 FL LAB HEMETOLOGY METHOD 07/19/2024 8:36 AM [facility] MCH 24.9(L) 27.0 - 32.0 pcg LAB HEMETOLOGY METHOD 07/19/2024 8:36 AM [facility] MCHC 31.5(L) 32.0 - 37.0 g/dL LAB HEMETOLOGY METHOD 07/19/2024 8:36 AM [facility] RDW 23.9(H) 11.0 - 15.0 % LAB HEMETOLOGY METHOD 07/19/2024 8:36 AM [facility] Platelets 218 130 - 400 K/mcL LAB HEMETOLOGY METHOD 07/19/2024 8:36 AM [facility] MPV 10.6 7.0 - 11.0 FL LAB HEMETOLOGY METHOD 07/19/2024 8:36 AM [facility] NRBC 0.0 <1.0 % LAB HEMETOLOGY METHOD 07/19/2024 8:36 AM [facility] NRBC Absolute 0.00 <0.10 K/mcL LAB HEMETOLOGY METHOD 07/19/2024 8:36 AM [facility] Neutrophils Relative 87.6 % LAB HEMETOLOGY METHOD 07/19/2024 8:36 AM [facility] Comment:This is an appended report. These results have been appended to a previously preliminary verified report. Lymphocytes Relative 3.0 % LAB HEMETOLOGY METHOD 07/19/2024 8:36 AM [facility] Comment:This is an appended report. These results have been appended to a previously preliminary verified report. Monocytes Relative 4.6 % LAB HEMETOLOGY METHOD 07/19/2024 8:36 AM [facility] Comment:This is an appended report. These results have been appended to a previously preliminary verified report. Eosinophils Relative 3.0 % LAB HEMETOLOGY METHOD 07/19/2024 8:36 AM [facility] Comment:This is an appended report. These results have been appended to a previously preliminary verified report. Basophils Relative 0.2 % LAB HEMETOLOGY METHOD 07/19/2024 8:36 AM [facility] Comment:This is an appended report. These results have been appended to a previously preliminary verified report. Immature Granulocytes Relative 1.6 % LAB HEMETOLOGY METHOD 07/19/2024 8:36 AM [facility] Comment:This is an appended report. These results have been appended to a previously preliminary verified report. Neutrophils Absolute 21.89(H) 1.50 - 7.00 K/mcL LAB HEMETOLOGY METHOD 07/19/2024 8:36 AM [facility] Comment:This is an appended report. These results have been appended to a previously preliminary verified report. Lymphocytes Absolute 0.76(L) 1.00 - 5.00 K/mcL LAB HEMETOLOGY METHOD 07/19/2024 8:36 AM [facility] Comment:This is an appended report. These results have been appended to a previously preliminary verified report. Monocytes Absolute 1.14(H) 0.20 - 1.00 K/mcL LAB HEMETOLOGY METHOD 07/19/2024 8:36 AM [facility] Comment:This is an appended report. These results have been appended to a previously preliminary verified report. Eosinophils Absolute 0.76(H) 0.00 - 0.50 K/mcL LAB HEMETOLOGY METHOD 07/19/2024 8:36 AM [facility] Comment:This is an appended report. These results have been appended to a previously preliminary verified report. Basophils Absolute 0.05 0.00 - 0.20 K/mcL LAB HEMETOLOGY METHOD 07/19/2024 8:36 AM [facility] Comment:This is an appended report. These results have been appended to a previously preliminary verified report. Immature Granulocytes Absolute 0.40(H) 0.00 - 0.03 K/mcL LAB HEMETOLOGY METHOD 07/19/2024 8:36 AM [facility] Comment:This is an appended report. These results have been appended to a previously preliminary verified report. Blood Venous blood specimen / Unknown Venipuncture / Unknown 07/19/2024 7:55 AM EST 07/19/2024 7:55 AM EST Lencho Stuart MD LAB BLOOD ORDERABLES Final R esult Performing Organization Address City/[facility]/ZIP Co de Phone Number [facility] [address] [place] [address], [place] [phone] * (ABNORMAL) Parathyroid hormone related protein (07/19/2024 7:55 AM EST) [facility] PTH-related Protein (PTHrP) 24(H) 11 - 20 pg/mL 07/26/2024 4:37 PM EST [facility] Comment: This is a C-terminal PTH-RP assay. PTH-RP is useful in the differential diagnosis of hypercalcemia and levels may be elevated in patients with tumor-associated hypercalcemia. Elevated results may also be observed in patients with renal disease. This test was developed and its analytical performance characteristics have been determined by [facility] [employer] [employer] It has not been cleared or approved by FDA. This assay has been validated pursuant to the CLIA regulations and is used for clinical purposes. Test Performed at: [facility] [address] ??[id number] ? I Bethany GUERRERO, PhD, NINA Blood Venous blood specimen / Unknown Venipuncture / Unknown 07/19/2024 7:55 AM EST 07/19/2024 7:55 AM EST Jesus Manuel HEDRICK LAB BLOOD ORDERABLES [facility] [address] [place] [address] * (ABNORMAL) Anti-neutrophilic cytoplasmic antibody (07/19/2024 6:52 AM EST) [facility] Myeloperoxidase Ab Negative Negative LAB CHEMISTRY METHOD 07/20/2024 12:10 PM EST [facility] Myeloperoxidase Ab, Quant 1 <=20 units LAB CHEMISTRY METHOD 07/20/2024 12:10 PM EST [facility] Proteinase-3 Ab Positive(A ) Negative LAB CHEMISTRY METHOD 07/20/2024 12:10 PM [facility] Proteinase-3 Ab Quant 165(H) <=20 units LAB CHEMISTRY METHOD 07/20/2024 12:10 PM EST [facility] Blood Venous blood specimen / Unknown Venipuncture / Unknown 07/19/2024 6:52 AM EST 07/19/2024 7:21 AM EST Miguel Quiles MD LAB BLOOD ORDERABLES Final Res ult Performing Organization Address [facility]/ZIP Co de Phone Number [facility] [address] [place] [address], [place] [phone] * Anti-Xa - Every 6 Hours (07/19/2024 6:52 AM EST) Heparin Anti-Xa 0.37 0.30 - 0.70 I Unit/mL LAB COAGULATION METHOD 07/19/2024 7:38 AM EST [facility] Blood Venous blood specimen / Unknown Venipuncture / Unknown 07/19/2024 6:52 AM EST 07/19/2024 7:21 AM EST Narrative [facility] - 07/19/2024 7:38 AM EST Therapeutic range listed is for Unfractionated Heparin. LMW Heparin therapeutic range: 0.50-1.20 IU/mL Lencho Stuart MD LAB BLOOD ORDERABLES Final R esult Performing Organization Address City/[facility]/ZIP Co de Phone Number [facility] [address] [place] [address], [place] [phone] * (ABNORMAL) Basic metabolic panel (07/19/2024 6:52 AM EST) Sodium 128(L) 133 - 145 mmol/L LAB CHEMISTRY METHOD 07/19/2024 8:56 AM [facility] Potassium 4.9 3.5 - 5.5 mmol/L LAB CHEMISTRY METHOD 07/19/2024 8:56 AM [facility] Chloride 93(L) 96 - 110 mmol/L LAB CHEMISTRY METHOD 07/19/2024 8:56 AM [facility] CO2 28 21 - 32 mmol/L LAB CHEMISTRY METHOD 07/19/2024 8:56 AM [facility] Anion Gap 7 3 - 11 LAB CHEMISTRY METHOD 07/19/2024 8:56 AM [facility] Glucose 170(H) 70 - 100 mg/dL LAB CHEMISTRY METHOD 07/19/2024 8:56 AM [facility] BUN 83(H) 5 - 25 mg/dL LAB CHEMISTRY METHOD 07/19/2024 8:56 AM [facility] Creatinine 5.96(H) 0.50 - 1.10 mg/dL LAB CHEMISTRY METHOD 07/19/2024 8:56 AM [facility] eGFR 7(L) >=60 mL/min/1. 73m2 LAB CHEMISTRY METHOD 07/19/2024 8:56 AM [facility] Comment:Calculation based on the??Chronic Kidney Disease Epidemiology Collaboration (CKD-EPI) equation refit??without adjustment for race. BUN/Creatinine Ratio 13.9 LAB CHEMISTRY METHOD 07/19/2024 8:56 AM [facility] Calcium 7.7(L) 8.5 - 10.5 mg/dL LAB CHEMISTRY METHOD 07/19/2024 8:56 AM [facility] Blood Venous blood specimen / Unknown Venipuncture / Unknown 07/19/2024 6:52 AM EST 07/19/2024 7:21 AM EST us Lencho Stuart MD LAB BLOOD ORDERABLES Final R esult [facility] [address] [place] [address], [place] [phone] * (ABNORMAL) POCT Glucose, blood (07/18/2024 8:27 PM EST) Glucose POCT 193(H) 70 - 100 mg/dL 07/18/2024 8:27 PM EST [facility] Blood Capillary blood specimen / Unknown 07/18/2024 8:27 PM EST 07/18/2024 8:28 PM EST Lencho Stuart MD LAB POINT OF CARE TE ST DOCKED DEVICE UNSOLICITED RESULTS Final Result Performing Organization Address [facility]/ZIP Co de Phone Number [facility] [address] [place] [address], [place] [phone] * Anti-Xa - Every 6 Hours (07/18/2024 6:07 PM EST) Heparin Anti-Xa 0.42 0.30 - 0.70 I Unit/mL LAB COAGULATION METHOD 07/18/2024 7:21 PM EST [facility] Blood Venous blood specimen / Unknown Venipuncture / Unknown 07/18/2024 6:07 PM EST 07/18/2024 7:00 PM EST Narrative [facility] - 07/18/2024 7:21 PM EST Therapeutic range listed is for Unfractionated Heparin. LMW Heparin therapeutic range: 0.50-1.20 IU/mL us Kwesi Guido MD LAB BLOOD ORDERABLES F inal Result [facility] [address] [place] [address], [place] [phone] * (ABNORMAL) POCT Glucose, blood (07/18/2024 4:00 PM EST) Glucose POCT 210(H) 70 - 100 mg/dL 07/18/2024 4:01 PM EST [facility] Blood Capillary blood specimen / Unknown 07/18/2024 4:00 PM EST 07/18/2024 4:02 PM EST Lencho Stuart MD LAB POINT OF CARE TE ST DOCKED DEVICE UNSOLICITED RESULTS Final Result [facility] [address] [place] [address], * Anti-Xa - Every 6 Hours (07/18/2024 12:43 PM EST) Heparin Anti-Xa 0.39 0.30 - 0.70 I Unit/mL LAB COAGULATION METHOD 07/18/2024 1:15 PM EST [facility] Blood Venous blood specimen / Unknown Venipuncture / Unknown 07/18/2024 12:43 PM EST 07/18/2024 12:49 PM EST Narrative [facility] - 07/18/2024 1:15 PM EST Therapeutic range listed is for Unfractionated Heparin. LMW Heparin therapeutic range: 0.50-1.20 IU/mL us Kwesi Guido MD LAB BLOOD ORDERABLES F inal Result [facility] [address] [place] [address], * (ABNORMAL) POCT Glucose, blood (07/18/2024 11:17 AM EST) Glucose POCT 244(H) 70 - 100 mg/dL 07/18/2024 11:19 AM EST [facility] Blood Capillary blood specimen / Unknown 07/18/2024 11:17 AM EST 07/18/2024 11:21 AM EST Lencho Stuart MD LAB POINT OF CARE TE ST DOCKED DEVICE UNSOLICITED RESULTS Final Result Performing Organization Address [facility] Co de Phone Number [facility] [address] [place] [address], [place] [phone] * (ABNORMAL) POCT Glucose, blood (07/18/2024 7:54 AM EST) Glucose POCT 219(H) 70 - 100 mg/dL 07/18/2024 7:54 AM EST [facility] Blood Capillary blood specimen / Unknown 07/18/2024 7:54 AM EST 07/18/2024 7:56 AM EST Lencho Stuart MD LAB POINT OF CARE TE ST DOCKED DEVICE UNSOLICITED RESULTS Final Result Performing Organization Address [facility] de Phone Number [facility] [address] [place] [address], [place] [phone] * Robertson urine culture tube (07/18/2024 6:10 AM EST) Extra Tube Hold for add-ons. 07/18/2024 8:01 AM EST [facility] Comment:Auto resulted. Urine Urine specimen obtained by clean catch procedure / Unknown 07/18/2024 6:10 AM EST 07/18/2024 6:37 AM EST us Lencho Stuart MD LAB URINE ORDERABLES Final R esult Performing Organization Address [facility] Co de Phone Number [facility] [address] [place] [address], [place] [phone] * (ABNORMAL) Urinalysis microscopic only (07/18/2024 6:09 AM EST) RBC, Urine 10(H) 0 - 4 /HPF 07/18/2024 7:53 AM EST [facility] WBC, Urine >100(H) 0 - 4 /HPF 07/18/2024 7:53 AM EST [facility] Squamous Epithelial, Urine 10 0 - 60 /LPF 07/18/2024 7:53 AM EST [facility] Non-Squamous Epithelial, Urine 2-5 Transitional epithelial cells. /LPF 07/18/2024 7:53 AM [facility] Bacteria, Urine Many(A) Negative /HPF 07/18/2024 7:53 AM [facility] Other Casts, Urine Rare Coarse Granular casts. /LPF 07/18/2024 7:53 AM [facility] Urine Indwelling urinary catheter / Unknown Non-blood Collection / Unknown 07/18/2024 6:09 AM EST 07/18/2024 6:36 AM EST us Kwesi Guido MD LAB URINE ORDERABLES F inal Result [facility] [address] [place] [address], * Anti-Xa - Every 6 Hours (07/18/2024 6:07 AM EST) Heparin Anti-Xa 0.34 0.30 - 0.70 I Unit/mL LAB COAGULATION METHOD 07/18/2024 7:02 AM EST [facility] Blood Venous blood specimen / Unknown 07/18/2024 6:07 AM EST 07/18/2024 6:34 AM EST Narrative [facility] - 07/18/2024 7:02 AM EST Therapeutic range listed is for Unfractionated Heparin. LMW Heparin therapeutic range: 0.50-1.20 IU/mL us Kwesi Guido MD LAB BLOOD ORDERABLES F inal Result [facility] [address] [place] [address], [place] [phone] * (ABNORMAL) CBC auto differential (07/18/2024 6:07 AM EST) WBC 25.5(H) 4.8 - 10.8 K/mcL LAB HEMETOLOGY METHOD 07/18/2024 7:23 AM [facility] RBC 3.20(L) 3.80 - 4.80 M/mcL LAB HEMETOLOGY METHOD 07/18/2024 7:23 AM [facility] Hemoglobin 7.8(L) 11.5 - 16.0 g/dL LAB HEMETOLOGY METHOD 07/18/2024 7:23 AM [facility] Hematocrit 24.9(L) 35.0 - 47.0 % LAB HEMETOLOGY METHOD 07/18/2024 7:23 AM [facility] MCV 77.6(L) 79.0 - 98.0 FL LAB HEMETOLOGY METHOD 07/18/2024 7:23 AM [facility] [facility] MCH 24.3(L) 27.0 - 32.0 pcg LAB HEMETOLOGY METHOD 07/18/2024 7:23 AM [facility] MCHC 31.3(L) 32.0 - 37.0 g/dL LAB HEMETOLOGY METHOD 07/18/2024 7:23 AM [facility] RDW 24.1(H) 11.0 - 15.0 % LAB HEMETOLOGY METHOD 07/18/2024 7:23 AM [facility] Platelets 242 130 - 400 K/mcL LAB HEMETOLOGY METHOD 07/18/2024 7:23 AM [facility] MPV 9.6 7.0 - 11.0 FL LAB HEMETOLOGY METHOD 07/18/2024 7:23 AM [facility] NRBC 0.0 <1.0 % LAB HEMETOLOGY METHOD 07/18/2024 7:23 AM [facility] NRBC Absolute 0.00 <0.10 K/mcL LAB HEMETOLOGY METHOD 07/18/2024 7:23 AM [facility] Neutrophils Relative 89.3 % LAB HEMETOLOGY METHOD 07/18/2024 7:23 AM [facility] Comment:This is an appended report. These results have been appended to a previously preliminary verified report. Lymphocytes Relative 2.8 % LAB HEMETOLOGY METHOD 07/18/2024 7:23 AM [facility] Comment:This is an appended report. These results have been appended to a previously preliminary verified report. Monocytes Relative 4.2 % LAB HEMETOLOGY METHOD 07/18/2024 7:23 AM [facility] Comment:This is an appended report. These results have been appended to a previously preliminary verified report. Eosinophils Relative 1.9 % LAB HEMETOLOGY METHOD 07/18/2024 7:23 AM [facility] Comment:This is an appended report. These results have been appended to a previously preliminary verified report. Basophils Relative 0.2 % LAB HEMETOLOGY METHOD 07/18/2024 7:23 AM [facility] Comment:This is an appended report. These results have been appended to a previously preliminary verified report. Immature Granulocytes Relative 1.6 % LAB HEMETOLOGY METHOD 07/18/2024 7:23 AM [facility] Comment:This is an appended report. These results have been appended to a previously preliminary verified report. Neutrophils Absolute 22.74(H) 1.50 - 7.00 K/mcL LAB HEMETOLOGY METHOD 07/18/2024 7:23 AM EST [facility] Comment:This is an appended report. These results have been appended to a previously preliminary verified report. Lymphocytes Absolute 0.72(L) 1.00 - 5.00 K/[facility] LAB HEMETOLOGY METHOD 07/18/2024 7:23 AM EST [facility] Comment:This is an appended report. These results have been appended to a previously preliminary verified report. Monocytes Absolute 1.06(H) 0.20 - 1.00 K/[facility] LAB HEMETOLOGY METHOD 07/18/2024 7:23 AM EST [facility] Comment:This is an appended report. These results have been appended to a previously preliminary verified report. Eosinophils Absolute 0.49 0.00 - 0.50 K/[facility] 07/18/2024 7:23 AM EST [facility] Comment:This is an appended report. These results have been appended to a previously preliminary verified report. Basophils Absolute 0.04 0.00 - 0.20 K/[facility] LAB HEMETOLOGY METHOD 07/18/2024 7:23 AM EST [facility] Comment:This is an appended report. These results have been appended to a previously preliminary verified report. Immature Granulocytes Absolute 0.41(H) 0.00 - 0.03 K/[facility] LAB HEMETOLOGY METHOD 07/18/2024 7:23 AM EST [facility] Comment:This is an appended report. These results have been appended to a previously preliminary verified report. Blood Venous blood specimen / Unknown Venipuncture / Unknown 07/18/2024 6:07 AM EST 07/18/2024 7:16 AM EST us Kwesi Guido MD LAB BLOOD ORDERABLES F inal Result [facility] [address] [place] [address], * (ABNORMAL) Calcium, ionized (07/18/2024 6:07 AM EST) Calcium Ionized 4.28(L) 4.50 - 5.30 mg/dL 07/18/2024 6:46 AM [facility] Blood Venous blood specimen / Unknown 07/18/2024 6:07 AM EST 07/18/2024 6:33 AM EST Kwesi Guido MD LAB BLOOD ORDERABLES F inal Result [facility] [address] [place] [address], * (ABNORMAL) Basic metabolic panel (07/18/2024 6:07 AM EST) Sodium 132(L) 133 - 145 mmol/L LAB CHEMISTRY METHOD 07/18/2024 7:48 AM [facility] Potassium 4.4 3.5 - 5.5 mmol/L LAB CHEMISTRY METHOD 07/18/2024 7:48 AM [facility] Chloride 95(L) 96 - 110 mmol/L LAB CHEMISTRY METHOD 07/18/2024 7:48 AM [facility] CO2 27 21 - 32 mmol/L LAB CHEMISTRY METHOD 07/18/2024 7:48 AM [facility] Anion Gap 10 3 - 11 LAB CHEMISTRY METHOD 07/18/2024 7:48 AM [facility] Glucose 225(H) 70 - 100 mg/dL LAB CHEMISTRY METHOD 07/18/2024 7:48 AM [facility] BUN 67(H) 5 - 25 mg/dL LAB CHEMISTRY METHOD 07/18/2024 7:48 AM [facility] Creatinine 4.92(H) 0.50 - 1.10 mg/dL LAB CHEMISTRY METHOD 07/18/2024 7:48 AM [facility] eGFR 8(L) >=60 mL/min/1. 73m2 LAB CHEMISTRY METHOD 07/18/2024 7:48 AM EST [facility] Comment:Calculation based on the??Chronic Kidney Disease Epidemiology Collaboration (CKD-EPI) equation refit??without adjustment for race. BUN/Creatinine Ratio 13.6 LAB CHEMISTRY METHOD 07/18/2024 7:48 AM EST [facility] Calcium 7.5(L) 8.5 - 10.5 mg/dL LAB CHEMISTRY METHOD 07/18/2024 7:48 AM EST [facility] Blood Venous blood specimen / Unknown 07/18/2024 6:07 AM EST 07/18/2024 6:34 AM EST us Kwesi Guido MD LAB BLOOD ORDERABLES F inal Result Performing Organization Address [facility] Co de Phone Number [facility] [address] [place] [address], [place] [phone] * (ABNORMAL) Anti-Xa - Every 6 Hours (07/18/2024 12:19 AM EST) Heparin Anti-Xa 0.19(L) 0.30 - 0.70 I Unit/mL LAB COAGULATION METHOD 07/18/2024 12:48 AM EST [facility] Blood Venous blood specimen / Unknown Venipuncture / Unknown 07/18/2024 12:19 AM EST 07/18/2024 12:38 AM EST Narrative [facility] - 07/18/2024 12:48 AM EST Therapeutic range listed is for Unfractionated Heparin. LMW Heparin therapeutic range: 0.50-1.20 IU/mL us Kwesi Guido MD LAB BLOOD ORDERABLES F inal Result Performing Organization Address [facility]/ZIP Co de Phone Number [facility] [address] [place] [address], [place] [phone] * (ABNORMAL) POCT Glucose, blood (07/17/2024 9:12 PM EST) Glucose POCT 240(H) 70 - 100 mg/dL 07/17/2024 9:13 PM EST [facility] Blood Capillary blood specimen / Unknown 07/17/2024 9:12 PM EST 07/17/2024 9:14 PM EST us Kwesi Guido MD LAB POINT OF C ARE TEST DOCKED DEVICE UNSOLICITED RESULTS Final Result [facility] [address] [place] [address], [place] [phone] * Anti-Xa - Every 6 Hours (07/17/2024 6:37 PM EST) [facility] Heparin Anti-Xa 0.30 0.30 - 0.70 I Unit/mL LAB COAGULATION METHOD 07/17/2024 7:18 PM EST [facility] Blood Venous blood specimen / Unknown Venipuncture / Unknown 07/17/2024 6:37 PM EST 07/17/2024 7:06 PM EST Narrative [facility] - 07/17/2024 7:18 PM EST Therapeutic range listed is for Unfractionated Heparin. LMW Heparin therapeutic range: 0.50-1.20 IU/mL us Kwesi Guido MD LAB BLOOD ORDERABLES F inal Result [facility] [address] [place] [address], [place] [phone] * (ABNORMAL) POCT Glucose, blood (07/17/2024 4:15 PM EST) Glucose POCT 238(H) 70 - 100 mg/dL 07/17/2024 4:16 PM EST [facility] Blood Capillary blood specimen / Unknown 07/17/2024 4:15 PM EST 07/17/2024 4:17 PM EST us Kwesi Guido MD LAB POINT OF C ARE TEST DOCKED DEVICE UNSOLICITED RESULTS Final Result Performing Organization Address [facility]/ZIP Co de Phone Number [facility] [address] [place] [address], [place] [phone] * Anti-Xa - Every 6 Hours (07/17/2024 12:29 PM EST) Heparin Anti-Xa 0.37 0.30 - 0.70 I Unit/mL LAB COAGULATION METHOD 07/17/2024 1:11 PM EST [facility] Blood Venous blood specimen / Unknown Venipuncture / Unknown 07/17/2024 12:29 PM EST 07/17/2024 12:35 PM EST Narrative [facility] - 07/17/2024 1:11 PM EST Therapeutic range listed is for Unfractionated Heparin. LMW Heparin therapeutic range: 0.50-1.20 IU/mL us Kwesi Guido MD LAB BLOOD ORDERABLES F inal Result Performing Organization Address City/[facility]/ZIP Co de Phone Number [facility] [address] [place] [address], [place] [phone] * (ABNORMAL) POCT Glucose, blood (07/17/2024 11:19 AM EST) Glucose POCT 307(H) 70 - 100 mg/dL 07/17/2024 11:25 AM EST [facility] Blood Capillary blood specimen / Unknown 07/17/2024 11:19 AM EST 07/17/2024 11:26 AM EST us Kwesi Guido MD LAB POINT OF ARE TEST DOCKED DEVICE UNSOLICITED RESULTS Final Result Performing Organization Address [facility]/ZIP Co de Phone Number [facility] [address] [place] [address], [place] [phone] * (ABNORMAL) POCT Glucose, blood (07/17/2024 7:57 AM EST) Glucose POCT 258(H) 70 - 100 mg/dL 07/17/2024 7:58 AM EST [facility] Blood Capillary blood specimen / Unknown 07/17/2024 7:57 AM EST 07/17/2024 7:59 AM EST us Kwesi Guido MD LAB POINT OF ARE TEST DOCKED DEVICE UNSOLICITED RESULTS Final Result Performing Organization Address [facility]/ZIP Co de Phone Number [facility] [address] [place] [address], [place] [phone] * (ABNORMAL) Anti-Xa - Every 6 Hours (07/17/2024 6:30 AM EST) [facility] Heparin Anti-Xa 0.20(L) 0.30 - 0.70 I Unit/mL LAB COAGULATION METHOD 07/17/2024 7:43 AM EST [facility] Blood Venous blood specimen / Unknown Venipuncture / Unknown 07/17/2024 6:30 AM EST 07/17/2024 7:06 AM EST Narrative [facility] - 07/17/2024 7:43 AM EST Therapeutic range listed is for Unfractionated Heparin. LMW Heparin therapeutic range: 0.50-1.20 IU/mL us Kwesi Guido MD LAB BLOOD ORDERABLES F inal Result Performing Organization Address [facility]/ZIP Co de Phone Number [facility] [address] [place] [address], [place] [phone] * (ABNORMAL) CBC auto differential (07/17/2024 6:30 AM EST) [facility] WBC 23.0(H) 4.8 - 10.8 K/mcL LAB HEMETOLOGY METHOD 07/17/2024 8:50 AM [facility] RBC 3.30(L) 3.80 - 4.80 M/mcL LAB HEMETOLOGY METHOD 07/17/2024 8:50 AM [facility] Hemoglobin 8.0(L) 11.5 - 16.0 g/dL LAB HEMETOLOGY METHOD 07/17/2024 8:50 AM [facility] Hematocrit 25.6(L) 35.0 - 47.0 % LAB HEMETOLOGY METHOD 07/17/2024 8:50 AM [facility] MCV 78.5(L) 79.0 - 98.0 FL LAB HEMETOLOGY METHOD 07/17/2024 8:50 AM [facility] MCH 24.5(L) 27.0 - 32.0 pcg LAB HEMETOLOGY METHOD 07/17/2024 8:50 AM [facility] MCHC 31.3(L) 32.0 - 37.0 g/dL LAB HEMETOLOGY METHOD 07/17/2024 8:50 AM [facility] RDW 23.9(H) 11.0 - 15.0 % LAB HEMETOLOGY METHOD 07/17/2024 8:50 AM [facility] Platelets 252 130 - 400 K/mcL LAB HEMETOLOGY METHOD 07/17/2024 8:50 AM [facility] MPV 9.9 7.0 - 11.0 FL LAB HEMETOLOGY METHOD 07/17/2024 8:50 AM [facility] NRBC 0.0 <1.0 % LAB HEMETOLOGY METHOD 07/17/2024 8:50 AM [facility] NRBC Absolute 0.00 <0.10 K/mcL LAB HEMETOLOGY METHOD 07/17/2024 8:50 AM [facility] Neutrophils Relative 90.9 % LAB HEMETOLOGY METHOD 07/17/2024 8:50 AM [facility] Lymphocytes Relative 2.6 % LAB HEMETOLOGY METHOD 07/17/2024 8:50 AM [facility] Monocytes Relative 4.8 % LAB HEMETOLOGY METHOD 07/17/2024 8:50 AM [facility] Eosinophils Relative 0.5 % LAB HEMETOLOGY METHOD 07/17/2024 8:50 AM [facility] Basophils Relative 0.1 % LAB HEMETOLOGY METHOD 07/17/2024 8:50 AM [facility] Immature Granulocytes Relative 1.1 % LAB HEMETOLOGY METHOD 07/17/2024 8:50 AM [facility] Neutrophils Absolute 20.92(H) 1.50 - 7.00 K/mcL LAB HEMETOLOGY METHOD 07/17/2024 8:50 AM [facility] Lymphocytes Absolute 0.60(L) 1.00 - 5.00 K/mcL LAB HEMETOLOGY METHOD 07/17/2024 8:50 AM [facility] Monocytes Absolute 1.11(H) 0.20 - 1.00 K/mcL LAB HEMETOLOGY METHOD 07/17/2024 8:50 AM [facility] Eosinophils Absolute 0.11 0.00 - 0.50 K/mcL LAB HEMETOLOGY METHOD 07/17/2024 8:50 AM [facility] Basophils Absolute 0.03 0.00 - 0.20 K/mcL LAB HEMETOLOGY METHOD 07/17/2024 8:50 AM [facility] Immature Granulocytes Absolute 0.26(H) 0.00 - 0.03 K/mcL LAB HEMETOLOGY METHOD 07/17/2024 8:50 AM [facility] Blood Venous blood specimen / Unknown Venipuncture / Unknown 07/17/2024 6:30 AM EST 07/17/2024 7:06 AM EST us Kwesi Guido MD LAB BLOOD ORDERABLES F inal Result [facility] [address] [place] [address], * (ABNORMAL) CBC - Every 3 Days (07/17/2024 6:30 AM EST) WBC 23.0(H) 4.8 - 10.8 K/mcL LAB HEMETOLOGY METHOD 07/17/2024 8:12 AM [facility] RBC 3.30(L) 3.80 - 4.80 M/mcL LAB HEMETOLOGY METHOD 07/17/2024 8:12 AM [facility] Hemoglobin 8.0(L) 11.5 - 16.0 g/dL LAB HEMETOLOGY METHOD 07/17/2024 8:12 AM [facility] Hematocrit 25.6(L) 35.0 - 47.0 % LAB HEMETOLOGY METHOD 07/17/2024 8:12 AM [facility] MCV 78.5(L) 79.0 - 98.0 FL LAB HEMETOLOGY METHOD 07/17/2024 8:12 AM [facility] MCH 24.5(L) 27.0 - 32.0 pcg LAB HEMETOLOGY METHOD 07/17/2024 8:12 AM [facility] MCHC 31.3(L) 32.0 - 37.0 g/dL LAB HEMETOLOGY METHOD 07/17/2024 8:12 AM [facility] RDW 23.9(H) 11.0 - 15.0 % LAB HEMETOLOGY METHOD 07/17/2024 8:12 AM EST [facility] Platelets 252 130 - 400 K/mcL LAB HEMETOLOGY METHOD 07/17/2024 8:12 AM EST [facility] MPV 9.9 7.0 - 11.0 FL LAB HEMETOLOGY METHOD 07/17/2024 8:12 AM EST [facility] NRBC 0.0 <1.0 % LAB HEMETOLOGY METHOD 07/17/2024 8:12 AM EST [facility] NRBC Absolute 0.00 <0.10 K/mcL LAB HEMETOLOGY METHOD 07/17/2024 8:12 AM EST [facility] Blood Venous blood specimen / Unknown Venipuncture / Unknown 07/17/2024 6:30 AM EST 07/17/2024 7:06 AM EST us Kwesi Guido MD LAB BLOOD ORDERABLES F inal Result [facility] [address] [place] [address], [place] [phone] * Phosphorus (07/17/2024 6:30 AM EST) [facility] Signature Phosphorus 2.9 2.5 - 4.5 mg/dL LAB CHEMISTRY METHOD 07/17/2024 8:09 AM EST [facility] Blood Venous blood specimen / Unknown Venipuncture / Unknown 07/17/2024 6:30 AM EST 07/17/2024 7:06 AM EST us Kwesi Guido MD LAB BLOOD ORDERABLES F inal Result [facility] [address] [place] [address], [place] [phone] * Magnesium (07/17/2024 6:30 AM EST) Magnesium 2.2 1.9 - 2.6 mg/dL LAB CHEMISTRY METHOD 07/17/2024 8:09 AM [facility] Blood Venous blood specimen / Unknown Venipuncture / Unknown 07/17/2024 6:30 AM EST 07/17/2024 7:06 AM EST Kwesi Guido MD LAB BLOOD ORDERABLES F inal Result [facility] [address] [place] [address], * (ABNORMAL) Basic metabolic panel (07/17/2024 6:30 AM EST) Pathologist [facility] Sodium 133 133 - 145 mmol/L LAB CHEMISTRY METHOD 07/17/2024 8:09 AM [facility] Potassium 3.8 3.5 - 5.5 mmol/L LAB CHEMISTRY METHOD 07/17/2024 8:09 AM [facility] Chloride 96 96 - 110 mmol/L LAB CHEMISTRY METHOD 07/17/2024 8:09 AM [facility] CO2 26 21 - 32 mmol/L LAB CHEMISTRY METHOD 07/17/2024 8:09 AM [facility] Anion Gap 11 3 - 11 LAB CHEMISTRY METHOD 07/17/2024 8:09 AM [facility] Glucose 293(H) 70 - 100 mg/dL LAB CHEMISTRY METHOD 07/17/2024 8:09 AM [facility] BUN 53(H) 5 - 25 mg/dL LAB CHEMISTRY METHOD 07/17/2024 8:09 AM [facility] Creatinine 4.03(H) 0.50 - 1.10 mg/dL LAB CHEMISTRY METHOD 07/17/2024 8:09 AM [facility] eGFR 11(L) >=60 mL/min/1. 73m2 LAB CHEMISTRY METHOD 07/17/2024 8:09 AM EST [facility] Comment:Calculation based on the??Chronic Kidney Disease Epidemiology Collaboration (CKD-EPI) equation refit??without adjustment for race. BUN/Creatinine Ratio 13.2 LAB CHEMISTRY METHOD 07/17/2024 8:09 AM EST [facility] Calcium 7.7(L) 8.5 - 10.5 mg/dL LAB CHEMISTRY METHOD 07/17/2024 8:09 AM EST [facility] Blood Venous blood specimen / Unknown Venipuncture / Unknown 07/17/2024 6:30 AM EST 07/17/2024 7:06 AM EST us Kwesi Guido MD LAB BLOOD ORDERABLES F inal Result Performing Organization Address [facility] Co de Phone Number [facility] [address] [place] [address], [place] [phone] * (ABNORMAL) Anti-Xa - Every 6 Hours (07/17/2024 12:16 AM EST) Heparin Anti-Xa 0.14(L) 0.30 - 0.70 I Unit/mL LAB COAGULATION METHOD 07/17/2024 12:45 AM EST [facility] Blood Venous blood specimen / Unknown Venipuncture / Unknown 07/17/2024 12:16 AM EST 07/17/2024 12:35 AM EST Narrative [facility] - 07/17/2024 12:45 AM EST Therapeutic range listed is for Unfractionated Heparin. LMW Heparin therapeutic range: 0.50-1.20 IU/mL us Kwesi Guido MD LAB BLOOD ORDERABLES F inal Result Performing Organization Address [facility]/ZIP Co de Phone Number [facility] [address] [place] [address], [place] [phone] * (ABNORMAL) POCT Glucose, blood (07/16/2024 8:30 PM EST) Glucose POCT 263(H) 70 - 100 mg/dL 07/16/2024 8:31 PM EST [facility] Blood Capillary blood specimen / Unknown 07/16/2024 8:30 PM EST 07/16/2024 8:33 PM EST us Kwesi Guido MD LAB POINT OF C ARE TEST DOCKED DEVICE UNSOLICITED RESULTS Final Result [facility] [address] [place] [address], [place] [phone] * (ABNORMAL) Anti-Xa - STAT (07/16/2024 5:50 PM EST) Pathologist [facility] Heparin Anti-Xa <0.04(L) 0.30 - 0.70 I Unit/mL LAB COAGULATION METHOD 07/16/2024 6:18 PM EST [facility] Blood Venous blood specimen / Unknown Venipuncture / Unknown 07/16/2024 5:50 PM EST 07/16/2024 6:01 PM EST Narrative [facility] - 07/16/2024 6:18 PM EST Therapeutic range listed is for Unfractionated Heparin. LMW Heparin therapeutic range: 0.50-1.20 IU/mL us Kwesi Guido MD LAB BLOOD ORDERABLES F inal Result [facility] [address] [place] [address], [place] [phone] * Activated Partial Thromboplastin Time - STAT (07/16/2024 5:50 PM EST) aPTT 31.3 24.1 - 39.3 sec LAB COAGULATION METHOD 07/16/2024 6:13 PM EST [facility] Blood Venous blood specimen / Unknown Venipuncture / Unknown 07/16/2024 5:50 PM EST 07/16/2024 6:01 PM EST us Kwesi Guido MD LAB BLOOD ORDERABLES F inal Result Performing Organization Address [facility]/ZIP Co de Phone Number [facility] [address] [place] [address], [place] [phone] * (ABNORMAL) POCT Glucose, blood (07/16/2024 4:28 PM EST) Glucose POCT 170(H) 70 - 100 mg/dL 07/16/2024 4:31 PM EST [facility] Blood Capillary blood specimen / Unknown 07/16/2024 4:28 PM EST 07/16/2024 4:32 PM EST us Kwesi Guido MD LAB POINT OF C ARE TEST DOCKED DEVICE UNSOLICITED RESULTS Final Result Performing Organization Address [facility] Co de Phone Number [facility] [address] [place] [address], [place] [phone] * Vascular US duplex lower extremity venous [...] Signed Date: 07/16/2024 12:33 ET Workstation ID: [id number] Transcribed By: Self Edit Transcribed Date: 07/16/2024 [...] Signed Date: 07/16/2024 12:33 ET Workstation ID: [id number] Transcribed By: Self Edit Transcribed Date: 07/16/2024 12:28 ET Kwesi Guido MD CV VASCULAR PROCEDURES Final Result * (ABNORMAL) POCT Glucose, blood (07/16/2024 10:42 AM EST) Glucose POCT 105(H) 70 - 100 mg/dL 07/16/2024 10:44 AM EST [facility] Blood Capillary blood specimen / Unknown 07/16/2024 10:42 AM EST 07/16/2024 10:45 AM EST Kwesi Guido MD LAB POINT OF C ARE TEST DOCKED DEVICE UNSOLICITED RESULTS Final Result [facility] [address] [place] [address], [place] [phone] * (ABNORMAL) Basic metabolic panel (07/16/2024 6:45 AM EST) Sodium 135 133 - 145 mmol/L LAB CHEMISTRY METHOD 07/16/2024 8:40 AM EST [facility] Potassium 3.8 3.5 - 5.5 mmol/L LAB CHEMISTRY METHOD 07/16/2024 8:40 AM [facility] Chloride 103 96 - 110 mmol/L LAB CHEMISTRY METHOD 07/16/2024 8:40 AM [facility] CO2 18(L) 21 - 32 mmol/L LAB CHEMISTRY METHOD 07/16/2024 8:40 AM [facility] Anion Gap 14(H) 3 - 11 LAB CHEMISTRY METHOD 07/16/2024 8:40 AM [facility] Glucose 100 70 - 100 mg/dL LAB CHEMISTRY METHOD 07/16/2024 8:40 AM [facility] BUN 77(H) 5 - 25 mg/dL LAB CHEMISTRY METHOD 07/16/2024 8:40 AM [facility] Creatinine 5.37(H) 0.50 - 1.10 mg/dL LAB CHEMISTRY METHOD 07/16/2024 8:40 AM [facility] eGFR 8(L) >=60 mL/min/1. 73m2 LAB CHEMISTRY METHOD 07/16/2024 8:40 AM [facility] Comment:Calculation based on the??Chronic Kidney Disease Epidemiology Collaboration (CKD-EPI) equation refit??without adjustment for race. BUN/Creatinine Ratio 14.3 LAB CHEMISTRY METHOD 07/16/2024 8:40 AM [facility] Calcium 8.0(L) 8.5 - 10.5 mg/dL LAB CHEMISTRY METHOD 07/16/2024 8:40 AM [facility] Blood Venous blood specimen / Unknown Venipuncture / Unknown 07/16/2024 6:45 AM EST 07/16/2024 6:58 AM EST us Kwesi Guido MD LAB BLOOD ORDERABLES F inal Result [facility] [address] [place] [address], [place] [phone] * (ABNORMAL) Complete blood count (07/16/2024 6:45 AM EST) WBC 27.6(H) 4.8 - 10.8 K/mcL LAB HEMETOLOGY METHOD 07/16/2024 7:16 AM [facility] RBC 3.40(L) 3.80 - 4.80 M/mcL LAB HEMETOLOGY METHOD 07/16/2024 7:16 AM [facility] Hemoglobin 8.4(L) 11.5 - 16.0 g/dL LAB HEMETOLOGY METHOD 07/16/2024 7:16 AM [facility] Hematocrit 25.9(L) 35.0 - 47.0 % LAB HEMETOLOGY METHOD 07/16/2024 7:16 AM [facility] MCV 76.2(L) 79.0 - 98.0 FL LAB HEMETOLOGY METHOD 07/16/2024 7:16 AM [facility] MCH 24.7(L) 27.0 - 32.0 pcg LAB HEMETOLOGY METHOD 07/16/2024 7:16 AM [facility] MCHC 32.4 32.0 - 37.0 g/dL LAB HEMETOLOGY METHOD 07/16/2024 7:16 AM [facility] RDW 23.1(H) 11.0 - 15.0 % LAB HEMETOLOGY METHOD 07/16/2024 7:16 AM EST [facility] Platelets 258 130 - 400 K/mcL LAB HEMETOLOGY METHOD 07/16/2024 7:16 AM [facility] MPV 9.9 7.0 - 11.0 FL LAB HEMETOLOGY METHOD 07/16/2024 7:16 AM EST [facility] NRBC 0.0 <1.0 % LAB HEMETOLOGY METHOD 07/16/2024 7:16 AM EST [facility] NRBC Absolute 0.00 <0.10 K/mcL LAB HEMETOLOGY METHOD 07/16/2024 7:16 AM [facility] Blood Venous blood specimen / Unknown Venipuncture / Unknown 07/16/2024 6:45 AM EST 07/16/2024 6:58 AM EST us Kwesi Guido MD LAB BLOOD ORDERABLES F inal Result [facility] [address] [place] [address], [place] [phone] * POCT Glucose, blood (07/15/2024 8:26 PM EST) [facility] Signature Glucose POCT 93 70 - 100 mg/dL 07/15/2024 8:26 PM EST [facility] Blood Capillary blood specimen / Unknown 07/15/2024 8:26 PM EST 07/15/2024 8:27 PM EST us Kwesi Guido MD LAB POINT OF C ARE TEST DOCKED DEVICE UNSOLICITED RESULTS Final Result [facility] [address] [place] [address], [place] [phone] * POCT Glucose, blood (07/15/2024 4:30 PM EST) Glucose POCT 92 70 - 100 mg/dL 07/15/2024 4:31 PM EST [facility] Blood Capillary blood specimen / Unknown 07/15/2024 4:30 PM EST 07/15/2024 4:33 PM EST us Kwesi Guido MD LAB POINT OF C ARE TEST DOCKED DEVICE UNSOLICITED RESULTS Final Result [facility] [address] [place] [address], [place] [phone] * IR Insert Tunneled CVC wo Port or Pump More 5yrs Left (07/15/2024 3:36 PM EST) Anatomical Region Laterality Modality Left Interventional R adiology 07/15/2024 3:45 PM EST Impressions 07/15/2024 3:47 PM EST Successful placement of a 14 Taiwanese 23 cm dual-lumen cuffed tunneled dialysis catheter with the tip at the cavoatrial junction. This line may be used immediately. -------- FINAL REPORT -------- Dictated By: Fela Palomo Dictated Date: 07/15/2024 15:45 ET Assigned Physician: Fela Palomo Reviewed and Electronically Signed By: Fela Palomo Signed Date: 07/15/2024 15:47 ET Workstation ID: [id number] Transcribed By: Self Edit Transcribed Date: 07/15/2024 [...] The needle was exchanged for the 4 Taiwanese transition sheath. A 0.035 wire was then advanced through ??the sheath and into the inferior vena cava under fluoroscopy. The sheath was then exchanged for a 7 Taiwanese vascular dilator. Attention was then turned to the right upper chest and the appropriate area was anesthetized with 2% lidocaine. A small dermatotomy was performed and then a tunnel was created from the dermatotomy to the initial venous access site. The catheter was advanced through the tunnel. ??The initial venous access site was then serially dilated up to a 15 Taiwanese peel-away sheath. The catheter was then advanced [...] The needle was exchanged for the 4 Taiwanese transition sheath. A 0.035wire was then advanced through the sheath and into the inferior vena cavaunder fluoroscopy. The sheath was then exchanged for a 7 Taiwanese vasculardilator. Attention was then turned to the right upper chest and the appropriatearea was anesthetized with 2% lidocaine. A small dermatotomy was performedand then a tunnel was created from the dermatotomy to the initial venousaccess site. The catheter was advanced through the tunnel. The initialvenous access site was then serially dilated up to a 15 Taiwanese peel-awaysheath. The catheter was then advanced through [...] mGy IMPRESSION: Successful placement of a 14 Taiwanese 23 cm dual-lumen cuffed tunneleddialysis catheter with the tip at the cavoatrial junction. This line maybe used immediately. -------- FINAL REPORT -------- Dictated By: Fela Palomo Dictated Date: 07/15/2024 15:45 ET Assigned Physician: Fela Palomo Reviewed and Electronically Signed By: Fela Palomo Signed Date: 07/15/2024 15:47 ET Workstation ID: [id number] Transcribed By: Self Edit Transcribed Date: 07/15/2024 15:45 ET us Chencho Wayne MD IMG IR PROCEDURES Final Result * POCT Glucose, blood (07/15/2024 10:57 AM EST) [facility] Glucose POCT 98 70 - 100 mg/dL 07/15/2024 10:58 AM [facility] Blood Capillary blood specimen / Unknown 07/15/2024 10:57 AM EST 07/15/2024 10:59 AM EST us Kwesi Guido MD LAB POINT OF C ARE TEST DOCKED DEVICE UNSOLICITED RESULTS Final Result [facility] [address] [place] [address], [place] [phone] * (ABNORMAL) Basic metabolic panel (07/15/2024 8:56 AM EST) [facility] Sodium 132(L) 133 - 145 mmol/L LAB CHEMISTRY METHOD 07/15/2024 10:15 AM [facility] Potassium 3.8 3.5 - 5.5 mmol/L LAB CHEMISTRY METHOD 07/15/2024 10:15 AM [facility] Chloride 104 96 - 110 mmol/L LAB CHEMISTRY METHOD 07/15/2024 10:15 AM [facility] CO2 16(L) 21 - 32 mmol/L LAB CHEMISTRY METHOD 07/15/2024 10:15 AM [facility] Anion Gap 12(H) 3 - 11 LAB CHEMISTRY METHOD 07/15/2024 10:15 AM [facility] Glucose 80 70 - 100 mg/dL LAB CHEMISTRY METHOD 07/15/2024 10:15 AM [facility] BUN 97(H) 5 - 25 mg/dL LAB CHEMISTRY METHOD 07/15/2024 10:15 AM [facility] Creatinine 6.70(H) 0.50 - 1.10 mg/dL LAB CHEMISTRY METHOD 07/15/2024 10:15 AM [facility] eGFR 6(L) >=60 mL/min/1. 73m2 LAB CHEMISTRY METHOD 07/15/2024 10:15 AM EST [facility] Comment:Calculation based on the??Chronic Kidney Disease Epidemiology Collaboration (CKD-EPI) equation refit??without adjustment for race. BUN/Creatinine Ratio 14.5 LAB CHEMISTRY METHOD 07/15/2024 10:15 AM EST [facility] Calcium 8.4(L) 8.5 - 10.5 mg/dL LAB CHEMISTRY METHOD 07/15/2024 10:15 AM [facility] Blood Venous blood specimen / Unknown Venipuncture / Unknown 07/15/2024 8:56 AM EST 07/15/2024 9:43 AM EST us Kwesi Guido MD LAB BLOOD ORDERABLES F inal Result Performing Organization Address [facility] Co de Phone Number [facility] [address] [place] [address], [place] [phone] * Hepatitis B surface antigen with reflex to confirmation (07/15/2024 8:56 AM EST) Hepatitis B Surface Ag Negative Negative LAB CHEMISTRY METHOD 07/15/2024 10:36 AM EST [facility] Blood Venous blood specimen / Unknown Venipuncture / Unknown 07/15/2024 8:56 AM EST 07/15/2024 9:43 AM EST Narrative [facility] - 07/15/2024 10:36 AM EST Over the counter supplements containing high doses of biotin may interfere with this assay. ??If interference is suspected, patients shoud be retested after refraining from biotin supplements for 72 hours. us Kwesi Guido MD LAB BLOOD ORDERABLES F inal Result Performing Organization Address [facility]/ZIP Co de Phone Number [facility] [address] [place] [address], [place] [phone] * Hepatitis B surface antibody quantitative (07/15/2024 8:56 AM EST) Pathologist [facility] Hepatitis B Surface Ab Negative Negative LAB CHEMISTRY METHOD 07/15/2024 10:25 AM [facility] Hepatitis B Surface Ab Quantitative <3.1 mIU/mL LAB CHEMISTRY METHOD 07/15/2024 10:25 AM [facility] Blood Venous blood specimen / Unknown Venipuncture / Unknown 07/15/2024 8:56 AM EST 07/15/2024 9:43 AM EST [facility] - 07/15/2024 10:25 AM EST >=10 mIU/mL is considered to be consistent with immunity. Kwesi Guido MD LAB BLOOD ORDERABLES F inal Result [facility] [address] [place] [address], * (ABNORMAL) Renal function panel (07/15/2024 8:56 AM EST) [facility] Sodium 132(L) 133 - 145 mmol/L LAB CHEMISTRY METHOD 07/15/2024 10:26 AM [facility] Potassium 3.8 3.5 - 5.5 mmol/L LAB CHEMISTRY METHOD 07/15/2024 10:26 AM [facility] Chloride 104 96 - 110 mmol/L LAB CHEMISTRY METHOD 07/15/2024 10:26 AM [facility] CO2 16(L) 21 - 32 mmol/L LAB CHEMISTRY METHOD 07/15/2024 10:26 AM [facility] Anion Gap 12(H) 3 - 11 LAB CHEMISTRY METHOD 07/15/2024 10:26 AM [facility] Glucose 80 70 - 100 mg/dL LAB CHEMISTRY METHOD 07/15/2024 10:26 AM [facility] BUN 97(H) 5 - 25 mg/dL LAB CHEMISTRY METHOD 07/15/2024 10:26 AM [facility] Creatinine 6.70(H) 0.50 - 1.10 mg/dL LAB CHEMISTRY METHOD 07/15/2024 10:26 AM [facility] eGFR 6(L) >=60 mL/min/1. 73m2 LAB CHEMISTRY METHOD 07/15/2024 10:26 AM [facility] Comment:Calculation based on the??Chronic Kidney Disease Epidemiology Collaboration (CKD-EPI) equation refit??without adjustment for race. BUN/Creatinine Ratio 14.5 LAB CHEMISTRY METHOD 07/15/2024 10:26 AM [facility] Albumin 3.3 3.2 - 5.0 g/dL LAB CHEMISTRY METHOD 07/15/2024 10:26 AM [facility] Comment:Results verified by repeat testing Calcium 8.4(L) 8.5 - 10.5 mg/dL LAB CHEMISTRY METHOD 07/15/2024 10:26 AM [facility] Phosphorus 4.2 2.5 - 4.5 mg/dL LAB CHEMISTRY METHOD 07/15/2024 10:26 AM [facility] Blood Venous blood specimen / Unknown Venipuncture / Unknown 07/15/2024 8:56 AM EST 07/15/2024 9:43 AM EST us Chencho Wayne MD LAB BLOOD ORDERABLES Final Resu lt [facility] [address] [place] [address], * POCT Glucose, blood (07/15/2024 8:03 AM EST) Glucose POCT 96 70 - 100 mg/dL 07/15/2024 8:05 AM [facility] Blood Capillary blood specimen / Unknown 07/15/2024 8:03 AM EST 07/15/2024 8:06 AM EST us Kwesi Guido MD LAB POINT OF C ARE TEST DOCKED DEVICE UNSOLICITED RESULTS Final Result Performing Organization Address [facility]/ZIP Co de Phone Number [facility] [address] [place] [address], [place] [phone] * (ABNORMAL) RBC morphology review (07/15/2024 6:56 AM EST) Rbc Morphology Present( A) Consistent with indices, Normal for LAB HEMETOLOGY METHOD 07/15/2024 8:54 AM EST [facility] Platelet Morphology - WAM See Note(A) Normal LAB HEMETOLOGY METHOD 07/15/2024 8:54 AM EST [facility] Comment:PLT: Normal Polychromasia Present Present( A) (none) LAB HEMETOLOGY METHOD 07/15/2024 8:54 AM EST [facility] Pappenheimer Bodies Present Present( A) (none) LAB HEMETOLOGY METHOD 07/15/2024 8:54 AM EST [facility] Schistocytes Present < 5%(A) (none) LAB HEMETOLOGY METHOD 07/15/2024 8:54 AM EST [facility] Blood Venous blood specimen / Unknown Venipuncture / Unknown 07/15/2024 6:56 AM EST 07/15/2024 7:52 AM EST us Kwesi Guido MD LAB BLOOD ORDERABLES F inal Result [facility] [address] [place] [address], [place] [phone] * (ABNORMAL) CBC auto differential (07/15/2024 6:56 AM EST) WBC 23.7(H) 4.8 - 10.8 K/mcL LAB HEMETOLOGY METHOD 07/15/2024 8:54 AM [facility] RBC 3.10(L) 3.80 - 4.80 M/mcL LAB HEMETOLOGY METHOD 07/15/2024 8:54 AM [facility] Hemoglobin 7.5(L) 11.5 - 16.0 g/dL LAB HEMETOLOGY METHOD 07/15/2024 8:54 AM [facility] Hematocrit 23.6(L) 35.0 - 47.0 % LAB HEMETOLOGY METHOD 07/15/2024 8:54 AM [facility] MCV 75.9(L) 79.0 - 98.0 FL LAB HEMETOLOGY METHOD 07/15/2024 8:54 AM [facility] MCH 24.1(L) 27.0 - 32.0 pcg LAB HEMETOLOGY METHOD 07/15/2024 8:54 AM [facility] MCHC 31.8(L) 32.0 - 37.0 g/dL LAB HEMETOLOGY METHOD 07/15/2024 8:54 AM [facility] RDW 22.7(H) 11.0 - 15.0 % LAB HEMETOLOGY METHOD 07/15/2024 8:54 AM [facility] Platelets 246 130 - 400 K/mcL LAB HEMETOLOGY METHOD 07/15/2024 8:54 AM [facility] MPV 10.3 7.0 - 11.0 FL LAB HEMETOLOGY METHOD 07/15/2024 8:54 AM [facility] NRBC 0.0 <1.0 % LAB HEMETOLOGY METHOD 07/15/2024 8:54 AM [facility] NRBC Absolute 0.00 <0.10 K/[facility] LAB HEMETOLOGY METHOD 07/15/2024 8:54 AM [facility] Neutrophils Relative 87.4 % LAB HEMETOLOGY METHOD 07/15/2024 8:54 AM [facility] Comment:This is an appended report. These results have been appended to a previously preliminary verified report. Lymphocytes Relative 3.5 % LAB HEMETOLOGY METHOD 07/15/2024 8:54 AM [facility] Comment:This is an appended report. These results have been appended to a previously preliminary verified report. Monocytes Relative 4.8 % LAB HEMETOLOGY METHOD 07/15/2024 8:54 AM [facility] Comment:This is an appended report. These results have been appended to a previously preliminary verified report. Eosinophils Relative 1.7 % LAB HEMETOLOGY METHOD 07/15/2024 8:54 AM [facility] Comment:This is an appended report. These results have been appended to a previously preliminary verified report. Basophils Relative 0.2 % LAB HEMETOLOGY METHOD 07/15/2024 8:54 AM [facility] Comment:This is an appended report. These results have been appended to a previously preliminary verified report. Immature Granulocytes Relative 2.4 % LAB HEMETOLOGY METHOD 07/15/2024 8:54 AM [facility] Comment:This is an appended report. These results have been appended to a previously preliminary verified report. Neutrophils Absolute 20.75(H) 1.50 - 7.00 K/mcL LAB HEMETOLOGY METHOD 07/15/2024 8:54 AM [facility] Comment:This is an appended report. These results have been appended to a previously preliminary verified report. Lymphocytes Absolute 0.84(L) 1.00 - 5.00 K/mcL LAB HEMETOLOGY METHOD 07/15/2024 8:54 AM [facility] Comment:This is an appended report. These results have been appended to a previously preliminary verified report. Monocytes Absolute 1.13(H) 0.20 - 1.00 K/mcL LAB HEMETOLOGY METHOD 07/15/2024 8:54 AM EST [facility] Comment:This is an appended report. These results have been appended to a previously preliminary verified report. Eosinophils Absolute 0.41 0.00 - 0.50 K/mcL LAB HEMETOLOGY METHOD 07/15/2024 8:54 AM EST [facility] Comment:This is an appended report. These results have been appended to a previously preliminary verified report. Basophils Absolute 0.05 0.00 - 0.20 K/mcL [facility] 07/15/2024 8:54 AM EST [facility] Comment:This is an appended report. These results have been appended to a previously preliminary verified report. Immature Granulocytes Absolute 0.56(H) 0.00 - 0.03 K/[facility] 07/15/2024 8:54 AM EST [facility] Comment:This is an appended report. These results have been appended to a previously preliminary verified report. Blood Venous blood specimen / Unknown Venipuncture / Unknown 07/15/2024 6:56 AM EST 07/15/2024 7:52 AM EST Kwesi Guido MD LAB BLOOD ORDERABLES F inal Result [facility] [address] [place] [address], * (ABNORMAL) Prothrombin time with INR (07/15/2024 6:56 AM EST) Protime 16.4(H) 10.6 - 13.9 sec LAB COAGULATION METHOD 07/15/2024 8:16 AM EST [facility] INR 1.3 LAB COAGULATION METHOD 07/15/2024 8:16 AM EST [facility] Blood Venous blood specimen / Unknown Venipuncture / Unknown 07/15/2024 6:56 AM EST 07/15/2024 7:52 AM EST us Kwesi Guido MD LAB BLOOD ORDERABLES F inal Result [facility] [address] [place] [address], [place] [phone] * Magnesium (07/15/2024 6:56 AM EST) [facility] Magnesium 2.2 1.9 - 2.6 mg/dL LAB CHEMISTRY METHOD 07/15/2024 8:48 AM [facility] Blood Venous blood specimen / Unknown Venipuncture / Unknown 07/15/2024 6:56 AM EST 07/15/2024 7:52 AM EST us Kwesi Guido MD LAB BLOOD ORDERABLES F inal Result Performing Organization Address City/[facility]/ZIP Co de Phone Number [facility] [address] [place] [address], [place] [phone] * (ABNORMAL) Basic metabolic panel (07/15/2024 6:56 AM EST) [facility] Sodium 134 133 - 145 mmol/L LAB CHEMISTRY METHOD 07/15/2024 8:58 AM [facility] Potassium 3.8 3.5 - 5.5 mmol/L LAB CHEMISTRY METHOD 07/15/2024 8:58 AM [facility] Chloride 104 96 - 110 mmol/L LAB CHEMISTRY METHOD 07/15/2024 8:58 AM [facility] CO2 15(L) 21 - 32 mmol/L LAB CHEMISTRY METHOD 07/15/2024 8:58 AM [facility] Anion Gap 15(H) 3 - 11 LAB CHEMISTRY METHOD 07/15/2024 8:58 AM [facility] Glucose 82 70 - 100 mg/dL LAB CHEMISTRY METHOD 07/15/2024 8:58 AM EST [facility] BUN 95(H) 5 - 25 mg/dL LAB CHEMISTRY METHOD 07/15/2024 8:58 AM [facility] Creatinine 6.68(H) 0.50 - 1.10 mg/dL LAB CHEMISTRY METHOD 07/15/2024 8:58 AM [facility] eGFR 6(L) >=60 mL/min/1. 73m2 LAB CHEMISTRY METHOD 07/15/2024 8:58 AM [facility] Comment:Calculation based on the??Chronic Kidney Disease Epidemiology Collaboration (CKD-EPI) equation refit??without adjustment for race. BUN/Creatinine Ratio 14.2 LAB CHEMISTRY METHOD 07/15/2024 8:58 AM [facility] Calcium 8.3(L) 8.5 - 10.5 mg/dL LAB CHEMISTRY METHOD 07/15/2024 8:58 AM [facility] Blood Venous blood specimen / Unknown Venipuncture / Unknown 07/15/2024 6:56 AM EST 07/15/2024 7:52 AM EST us Kwesi Guido MD LAB BLOOD ORDERABLES F inal Result [facility] [address] [place] [address], [place] [phone] * (ABNORMAL) POCT Glucose, blood (07/14/2024 8:07 PM EST) Glucose POCT 122(H) 70 - 100 mg/dL 07/14/2024 8:07 PM EST [facility] Blood Capillary blood specimen / Unknown 07/14/2024 8:07 PM EST 07/14/2024 8:09 PM EST us Kwesi Guiod MD LAB POINT OF C ARE TEST DOCKED DEVICE UNSOLICITED RESULTS Final Result [facility] [address] [place] [address], [place] [phone] * (ABNORMAL) POCT Glucose, blood (07/14/2024 4:26 PM EST) Glucose POCT 152(H) 70 - 100 mg/dL 07/14/2024 4:27 PM EST [facility] Blood Capillary blood specimen / Unknown 07/14/2024 4:26 PM EST 07/14/2024 4:28 PM EST us Kwesi Guido MD LAB POINT OF ARE TEST DOCKED DEVICE UNSOLICITED RESULTS Final Result Performing Organization Address [facility] Co de Phone Number [facility] [address] [place] [address], * POCT Glucose, blood (07/14/2024 11:32 AM EST) Glucose POCT 100 70 - 100 mg/dL 07/14/2024 11:37 AM EST [facility] Blood Capillary blood specimen / Unknown 07/14/2024 11:32 AM EST 07/14/2024 11:38 AM EST us Kwesi Guido MD LAB POINT OF C ARE TEST DOCKED DEVICE UNSOLICITED RESULTS Final Result Performing Organization Address [facility]/ZIP Co de Phone Number [facility] [address] [place] [address], [place] [phone] * POCT Glucose, blood (07/14/2024 8:19 AM EST) Glucose POCT 72 70 - 100 mg/dL 07/14/2024 8:38 AM EST [facility] Blood Capillary blood specimen / Unknown 07/14/2024 8:19 AM EST 07/14/2024 8:39 AM EST us Kwesi Guido MD LAB POINT OF C ARE TEST DOCKED DEVICE UNSOLICITED RESULTS Final Result Performing Organization Address [facility]/ZIP Co de Phone Number [facility] [address] [place] [address], [place] [phone] * Extractable Nuclear Antibodies Profile (07/14/2024 6:00 AM EST) SM Ab Negative Negative LAB CHEMISTRY METHOD 07/17/2024 12:29 PM EST [facility] SM Antibody Quant 2 <20 units LAB CHEMISTRY METHOD 07/17/2024 12:29 PM EST [facility] [employer] DES[employer]INEER Ab Negative Negative LAB CHEMISTRY METHOD 07/17/2024 12:29 PM EST [facility] [employer]ER Antibody Quant 1 <20 units LAB CHEMISTRY METHOD 07/17/2024 12:29 PM EST [facility] Blood Venous blood specimen / Unknown 07/14/2024 6:00 AM EST 07/14/2024 6:35 AM EST us Kwesi Guido MD LAB BLOOD ORDERABLES F inal Result Performing Organization Address [facility] Co de Phone Number [facility] [address] [place] [address], [place] [phone] * C4 complement (07/14/2024 6:00 AM EST) C4 Complement 18 16 - 47 mg/dL LAB CHEMISTRY METHOD 07/14/2024 11:20 AM EST [facility] Blood Venous blood specimen / Unknown 07/14/2024 6:00 AM EST 07/14/2024 6:35 AM EST us Kwesi Guido MD LAB BLOOD ORDERABLES F inal Result Performing Organization Address [facility]/ZIP Co de Phone Number [facility] [address] [place] [address], [place] [phone] * (ABNORMAL) C3 complement (07/14/2024 6:00 AM EST) [facility] C3 Complement 78(L) 88 - 201 mg/dL LAB CHEMISTRY METHOD 07/14/2024 11:20 AM EST [facility] Blood Venous blood specimen / Unknown 07/14/2024 6:00 AM EST 07/14/2024 6:35 AM EST us Kwesi Guido MD LAB BLOOD ORDERABLES F inal Result Performing Organization Address [facility] Co de Phone Number [facility] [address] [place] [address], [place] [phone] * (ABNORMAL) Anti-neutrophilic cytoplasmic antibody (07/14/2024 6:00 AM EST) [facility] Myeloperoxidase Ab Negative Negative LAB CHEMISTRY METHOD 07/20/2024 12:10 PM EST [facility] Myeloperoxidase Ab, Quant 2 <=20 units LAB CHEMISTRY METHOD 07/20/2024 12:10 PM EST [facility] Proteinase-3 Ab Positive(A ) Negative LAB CHEMISTRY METHOD 07/20/2024 12:10 PM EST [facility] Proteinase-3 Ab Quant 162(H) <=20 units LAB CHEMISTRY METHOD 07/20/2024 12:10 PM EST [facility] Blood Venous blood specimen / Unknown 07/14/2024 6:00 AM EST 07/14/2024 6:35 AM EST us Kwesi Guido MD LAB BLOOD ORDERABLES F inal Result Performing Organization Address City/[facility]/ZIP Co de Phone Number [facility] [address] [place] [address], [place] [phone] * (ABNORMAL) CBC auto differential (07/14/2024 6:00 AM EST) [facility] WBC 19.8(H) 4.8 - 10.8 K/mcL LAB HEMETOLOGY METHOD 07/14/2024 6:56 AM [facility] RBC 2.90(L) 3.80 - 4.80 M/mcL LAB HEMETOLOGY METHOD 07/14/2024 6:56 AM [facility] Hemoglobin 7.0(L) 11.5 - 16.0 g/dL LAB HEMETOLOGY METHOD 07/14/2024 6:56 AM [facility] Hematocrit 21.8(L) 35.0 - 47.0 % LAB HEMETOLOGY METHOD 07/14/2024 6:56 AM [facility] MCV 75.7(L) 79.0 - 98.0 FL LAB HEMETOLOGY METHOD 07/14/2024 6:56 AM [facility] MCH 24.3(L) 27.0 - 32.0 pcg LAB HEMETOLOGY METHOD 07/14/2024 6:56 AM [facility] MCHC 32.1 32.0 - 37.0 g/dL LAB HEMETOLOGY METHOD 07/14/2024 6:56 AM [facility] RDW 21.6(H) 11.0 - 15.0 % LAB HEMETOLOGY METHOD 07/14/2024 6:56 AM [facility] Platelets 193 130 - 400 K/mcL LAB HEMETOLOGY METHOD 07/14/2024 6:56 AM [facility] [facility] MPV 9.9 7.0 - 11.0 [place] LAB HEMETOLOGY METHOD 07/14/2024 6:56 AM [facility] NRBC 0.0 <1.0 % LAB HEMETOLOGY METHOD 07/14/2024 6:56 AM [facility] NRBC Absolute 0.00 <0.10 K/mcL LAB HEMETOLOGY METHOD 07/14/2024 6:56 AM [facility] Neutrophils Relative 85.1 % LAB HEMETOLOGY METHOD 07/14/2024 6:56 AM [facility] Lymphocytes Relative 3.7 % LAB HEMETOLOGY METHOD 07/14/2024 6:56 AM [facility] Monocytes Relative 6.1 % LAB HEMETOLOGY METHOD 07/14/2024 6:56 AM [facility] Eosinophils Relative 2.5 % LAB HEMETOLOGY METHOD 07/14/2024 6:56 AM [facility] Basophils Relative 0.2 % LAB HEMETOLOGY METHOD 07/14/2024 6:56 AM [facility] Immature Granulocytes Relative 2.4 % LAB HEMETOLOGY METHOD 07/14/2024 6:56 AM [facility] Neutrophils Absolute 16.82(H) 1.50 - 7.00 K/mcL LAB HEMETOLOGY METHOD 07/14/2024 6:56 AM [facility] Lymphocytes Absolute 0.74(L) 1.00 - 5.00 K/mcL LAB HEMETOLOGY METHOD 07/14/2024 6:56 AM [facility] Monocytes Absolute 1.20(H) 0.20 - 1.00 K/mcL LAB HEMETOLOGY METHOD 07/14/2024 6:56 AM [facility] Eosinophils Absolute 0.50 0.00 - 0.50 K/mcL LAB HEMETOLOGY METHOD 07/14/2024 6:56 AM [facility] Basophils Absolute 0.04 0.00 - 0.20 K/mcL LAB HEMETOLOGY METHOD 07/14/2024 6:56 AM [facility] Immature Granulocytes Absolute 0.48(H) 0.00 - 0.03 K/mcL LAB HEMETOLOGY METHOD 07/14/2024 6:56 AM EST [facility] Blood Venous blood specimen / Unknown 07/14/2024 6:00 AM EST 07/14/2024 6:36 AM EST us Kwesi Guido MD LAB BLOOD ORDERABLES F inal Result Performing Organization Address City/[facility]/ZIP Co de Phone Number [facility] [address] [place] [address], [place] [phone] * Magnesium (07/14/2024 6:00 AM EST) [facility] Magnesium 2.0 1.9 - 2.6 mg/dL LAB CHEMISTRY METHOD 07/14/2024 7:23 AM EST [facility] Blood Venous blood specimen / Unknown 07/14/2024 6:00 AM EST 07/14/2024 6:35 AM EST us Kwesi Guido MD LAB BLOOD ORDERABLES F inal Result Performing Organization Address City/[facility]/ZIP Co de Phone Number [facility] [address] [place] [address], [place] [phone] * (ABNORMAL) Basic metabolic panel (07/14/2024 6:00 AM EST) Pathologist [facility] Sodium 132(L) 133 - 145 mmol/L LAB CHEMISTRY METHOD 07/14/2024 7:38 AM EST [facility] Potassium 3.4(L) 3.5 - 5.5 mmol/L LAB CHEMISTRY METHOD 07/14/2024 7:38 AM EST [facility] Chloride 104 96 - 110 mmol/L LAB CHEMISTRY METHOD 07/14/2024 7:38 AM [facility] CO2 18(L) 21 - 32 mmol/L LAB CHEMISTRY METHOD 07/14/2024 7:38 AM EST [facility] Anion Gap 10 3 - 11 LAB CHEMISTRY METHOD 07/14/2024 7:38 AM [facility] Glucose 69(L) 70 - 100 mg/dL LAB CHEMISTRY METHOD 07/14/2024 7:38 AM [facility] BUN 84(H) 5 - 25 mg/dL LAB CHEMISTRY METHOD 07/14/2024 7:38 AM [facility] Creatinine 5.84(H) 0.50 - 1.10 mg/dL LAB CHEMISTRY METHOD 07/14/2024 7:38 AM [facility] eGFR 7(L) >=60 mL/min/1. 73m2 LAB CHEMISTRY METHOD 07/14/2024 7:38 AM [facility] Comment:Calculation based on the??Chronic Kidney Disease Epidemiology Collaboration (CKD-EPI) equation refit??without adjustment for race. BUN/Creatinine Ratio 14.4 LAB CHEMISTRY METHOD 07/14/2024 7:38 AM [facility] Calcium 8.2(L) 8.5 - 10.5 mg/dL LAB CHEMISTRY METHOD 07/14/2024 7:38 AM [facility] Blood Venous blood specimen / Unknown 07/14/2024 6:00 AM EST 07/14/2024 6:35 AM EST us Kwesi Guido MD LAB BLOOD ORDERABLES F inal Result [facility] [address] [place] [address], * (ABNORMAL) POCT Glucose, blood (07/13/2024 8:53 PM EST) Glucose POCT 153(H) 70 - 100 mg/dL 07/13/2024 8:55 PM EST [facility] Blood Capillary blood specimen / Unknown 07/13/2024 8:53 PM EST 07/13/2024 8:56 PM EST us Kwesi Guido MD LAB POINT OF C ARE TEST DOCKED DEVICE UNSOLICITED RESULTS Final Result Performing Organization Address City/[facility]/ZIP Co de Phone Number [facility] [address] [place] [address], [place] [phone] * Transfuse RBC (07/13/2024 7:03 PM EST) us Kwesi Guido MD BLOOD TRANSFUSION ORDE RABLES Final Result * Transfuse RBC: 1 Units (07/13/2024 7:03 PM EST) us Kwesi Guido MD BLOOD TRANSFUSION ORDE RABLES Final Result * (ABNORMAL) POCT Glucose, blood (07/13/2024 3:53 PM EST) Glucose POCT 115(H) 70 - 100 mg/dL 07/13/2024 3:56 PM EST [facility] Blood Capillary blood specimen / Unknown 07/13/2024 3:53 PM EST 07/13/2024 3:57 PM EST us Kwesi Guido MD LAB POINT OF C ARE TEST DOCKED DEVICE UNSOLICITED RESULTS Final Result Performing Organization Address City/[facility]/ZIP Co de Phone Number [facility] [address] [place] [address], [place] [phone] * (ABNORMAL) POCT Glucose, blood (07/13/2024 10:58 AM EST) Glucose POCT 106(H) 70 - 100 mg/dL 07/13/2024 10:58 AM EST [facility] Blood Capillary blood specimen / Unknown 07/13/2024 10:58 AM EST 07/13/2024 10:59 AM EST us Kwesi Guido MD LAB POINT OF C ARE TEST DOCKED DEVICE UNSOLICITED RESULTS Final Result [facility] [address] [place] [address], [place] [phone] * Prepare RBC: 1 Units (07/13/2024 10:44 AM EST) Product Code [id number] 07/13/2024 12:34 PM EST [facility] Unit Number [id number] 07/13/19 12:34 PM EST [facility] Crossmatch Compatible 07/13/2024 11:06 AM EST [facility] Dispense Status Transfused 07/13/2024 12:34 PM [facility] Unit ABO Rh OPOS 07/13/2024 12:34 PM [facility] Unit Expiration Date Time [id number] 07/13/2024 12:34 PM [facility] Unit Blood Type 5100 07/13/2024 12:34 PM [facility] Blood Venous blood specimen / Unknown 07/13/2024 10:44 AM EST 07/13/2024 8:32 AM EST us Kwesi Guido MD BLOOD BANK PRODUCT ORD ERABLES Final Result [facility] [address] [place] [address], [place] [phone] * Type and screen (07/13/2024 8:24 AM EST) ABO Group O 07/13/2024 10:29 AM EST [facility] Rh Type Positive 07/13/2024 10:29 AM EST [facility] Antibody Screen Negative 07/13/2024 10:29 AM EST [facility] Blood Venous blood specimen / Unknown Venipuncture / Unknown 07/13/2024 8:24 AM EST 07/13/2024 8:32 AM EST us Kwesi Guido MD LAB BLOOD BANK TEST OR DERABLES Final Result [facility] [address] [place] [address], [place] [phone] * POCT Glucose, blood (07/13/2024 8:13 AM EST) [facility] Glucose POCT 87 70 - 100 mg/dL 07/13/2024 8:20 AM [facility] Blood Capillary blood specimen / Unknown 07/13/2024 8:13 AM EST 07/13/2024 8:21 AM EST us Kwesi Guido MD LAB POINT OF C ARE TEST DOCKED DEVICE UNSOLICITED RESULTS Final Result [facility] [address] [place] [address], [place] [phone] * (ABNORMAL) CBC auto differential (07/13/2024 6:38 AM EST) Pathologist [facility] WBC 20.6(H) 4.8 - 10.8 K/[facility] LAB HEMETOLOGY METHOD 07/13/2024 7:14 AM EST [facility] RBC 2.70(L) 3.80 - 4.80 M/[facility] LAB HEMETOLOGY METHOD 07/13/2024 7:14 AM EST [facility] Hemoglobin 6.5(L) 11.5 - 16.0 g/dL LAB HEMETOLOGY METHOD 07/13/2024 7:14 AM EST [facility] Hematocrit 20.3(L) 35.0 - 47.0 % LAB HEMETOLOGY METHOD 07/13/2024 7:14 AM [facility] MCV 74.4(L) 79.0 - 98.0 FL LAB HEMETOLOGY METHOD 07/13/2024 7:14 AM [facility] MCH 23.8(L) 27.0 - 32.0 pcg LAB HEMETOLOGY METHOD 07/13/2024 7:14 AM [facility] MCHC 32.0 32.0 - 37.0 g/dL LAB HEMETOLOGY METHOD 07/13/2024 7:14 AM [facility] RDW 21.4(H) 11.0 - 15.0 % LAB HEMETOLOGY METHOD 07/13/2024 7:14 AM [facility] Platelets 199 130 - 400 K/mcL LAB HEMETOLOGY METHOD 07/13/2024 7:14 AM [facility] MPV 9.9 7.0 - 11.0 FL LAB HEMETOLOGY METHOD 07/13/2024 7:14 AM [facility] NRBC 0.0 <1.0 % LAB HEMETOLOGY METHOD 07/13/2024 7:14 AM [facility] NRBC Absolute 0.00 <0.10 K/mcL LAB HEMETOLOGY METHOD 07/13/2024 7:14 AM [facility] Neutrophils Relative 84.4 % LAB HEMETOLOGY METHOD 07/13/2024 7:14 AM [facility] Lymphocytes Relative 3.9 % LAB HEMETOLOGY METHOD 07/13/2024 7:14 AM [facility] Monocytes Relative 6.3 % LAB HEMETOLOGY METHOD 07/13/2024 7:14 AM [facility] Eosinophils Relative 3.3 % LAB HEMETOLOGY METHOD 07/13/2024 7:14 AM [facility] Basophils Relative 0.1 % LAB HEMETOLOGY METHOD 07/13/2024 7:14 AM EST [facility] Immature Granulocytes Relative 2.0 % LAB HEMETOLOGY METHOD 07/13/2024 7:14 AM [facility] Neutrophils Absolute 17.36(H) 1.50 - 7.00 K/mcL LAB HEMETOLOGY METHOD 07/13/2024 7:14 AM EST [facility] Lymphocytes Absolute 0.81(L) 1.00 - 5.00 K/mcL LAB HEMETOLOGY METHOD 07/13/2024 7:14 AM EST [facility] Monocytes Absolute 1.30(H) 0.20 - 1.00 K/mcL LAB HEMETOLOGY METHOD 07/13/2024 7:14 AM [facility] Eosinophils Absolute 0.67(H) 0.00 - 0.50 K/mcL LAB HEMETOLOGY METHOD 07/13/2024 7:14 AM EST [facility] Basophils Absolute 0.03 0.00 - 0.20 K/mcL LAB HEMETOLOGY METHOD 07/13/2024 7:14 AM EST [facility] Immature Granulocytes Absolute 0.41(H) 0.00 - 0.03 K/mcL LAB HEMETOLOGY METHOD 07/13/2024 7:14 AM [facility] Blood Venous blood specimen / Unknown Venipuncture / Unknown 07/13/2024 6:38 AM EST 07/13/2024 6:51 AM EST us Kwesi Guido MD LAB BLOOD ORDERABLES F inal Result [facility] [address] [place] [address], * Phosphorus (07/13/2024 6:38 AM EST) Pathologist [facility] Phosphorus 3.0 2.5 - 4.5 mg/dL LAB CHEMISTRY METHOD 07/13/2024 7:44 AM EST [facility] Blood Venous blood specimen / Unknown Venipuncture / Unknown 07/13/2024 6:38 AM EST 07/13/2024 6:50 AM EST us Kwesi Guido MD LAB BLOOD ORDERABLES F inal Result Performing Organization Address City/[facility]/ZIP Co de Phone Number [facility] [address] [place] [address], [place] [phone] * Magnesium (07/13/2024 6:38 AM EST) [facility] Magnesium 1.9 1.9 - 2.6 mg/dL LAB CHEMISTRY METHOD 07/13/2024 7:44 AM EST [facility] Blood Venous blood specimen / Unknown Venipuncture / Unknown 07/13/2024 6:38 AM EST 07/13/2024 6:50 AM EST us Kwesi Guido MD LAB BLOOD ORDERABLES F inal Result Performing Organization Address [facility]/ZIP Co de Phone Number [facility] [address] [place] [address], [place] [phone] * (ABNORMAL) Basic metabolic panel (07/13/2024 6:38 AM EST) [facility] Sodium 132(L) 133 - 145 mmol/L LAB CHEMISTRY METHOD 07/13/2024 7:57 AM EST [facility] Potassium 3.6 3.5 - 5.5 mmol/L LAB CHEMISTRY METHOD 07/13/2024 7:57 AM EST [facility] Chloride 104 96 - 110 mmol/L LAB CHEMISTRY METHOD 07/13/2024 7:57 AM EST [facility] CO2 18(L) 21 - 32 mmol/L LAB CHEMISTRY METHOD 07/13/2024 7:57 AM EST [facility] Anion Gap 10 3 - 11 LAB CHEMISTRY METHOD 07/13/2024 7:57 AM [facility] Glucose 71 70 - 100 mg/dL LAB CHEMISTRY METHOD 07/13/2024 7:57 AM [facility] BUN 73(H) 5 - 25 mg/dL LAB CHEMISTRY METHOD 07/13/2024 7:57 AM [facility] Creatinine 5.13(H) 0.50 - 1.10 mg/dL LAB CHEMISTRY METHOD 07/13/2024 7:57 AM [facility] eGFR 8(L) >=60 mL/min/1. 73m2 LAB CHEMISTRY METHOD 07/13/2024 7:57 AM [facility] Comment:Calculation based on the??Chronic Kidney Disease Epidemiology Collaboration (CKD-EPI) equation refit??without adjustment for race. BUN/Creatinine Ratio 14.2 LAB CHEMISTRY METHOD 07/13/2024 7:57 AM EST [facility] Calcium 8.1(L) 8.5 - 10.5 mg/dL LAB CHEMISTRY METHOD 07/13/2024 7:57 AM [facility] Blood Venous blood specimen / Unknown Venipuncture / Unknown 07/13/2024 6:38 AM EST 07/13/2024 6:50 AM EST us Kwesi Guido MD LAB BLOOD ORDERABLES F inal Result [facility] [address] [place] [address], * Uric acid (07/13/2024 6:38 AM EST) Uric Acid 7.5 3.1 - 7.8 mg/dL LAB CHEMISTRY METHOD 07/13/2024 7:44 AM [facility] Blood Venous blood specimen / Unknown Venipuncture / Unknown 07/13/2024 6:38 AM EST 07/13/2024 6:50 AM EST us Chencho Wayne MD LAB BLOOD ORDERABLES Final Resu lt Performing Organization Address [facility]/ZIP Co de Phone Number [facility] [address] [place] [address], [place] [phone] * (ABNORMAL) Sedimentation rate (07/13/2024 6:38 AM EST) Pathologist [facility] Sed Rate 84(H) 0 - 30 mm/hr LAB HEMETOLOGY METHOD 07/13/2024 7:32 AM EST [facility] Blood Venous blood specimen / Unknown Venipuncture / Unknown 07/13/2024 6:38 AM EST 07/13/2024 6:51 AM EST us Kwesi Guido MD LAB BLOOD ORDERABLES F inal Result Performing Organization Address [facility] Co de Phone Number [facility] [address] [place] [address], [place] [phone] * (ABNORMAL) POCT Glucose, blood (07/12/2024 8:06 PM EST) [facility] Glucose POCT 125(H) 70 - 100 mg/dL 07/12/2024 8:08 PM EST [facility] Blood Capillary blood specimen / Unknown 07/12/2024 8:06 PM EST 07/12/2024 8:09 PM EST us Kwesi Guido MD LAB POINT OF C ARE TEST DOCKED DEVICE UNSOLICITED RESULTS Final Result Performing Organization Address [facility] Co de Phone Number [facility] [address] [place] [address], [place] [phone] * (ABNORMAL) POCT Glucose, blood (07/12/2024 3:53 PM EST) Glucose POCT 143(H) 70 - 100 mg/dL 07/12/2024 3:57 PM EST [facility] Blood Capillary blood specimen / Unknown 07/12/2024 3:53 PM EST 07/12/2024 3:59 PM EST Kwesi Guido MD LAB POINT OF C ARE TEST DOCKED DEVICE UNSOLICITED RESULTS Final Result [facility] [address] [place] [address], [place] [phone] * (ABNORMAL) Protein and creatinine with ratio, urine (07/12/2024 3:27 PM EST) Protein, Urine 192 mg/dL LAB CHEMISTRY METHOD 07/12/2024 6:44 PM EST [facility] Prot/Creat, Ur 3.00(H) <=0.20 mg/mg creat LAB CHEMISTRY METHOD 07/12/2024 6:44 PM EST [facility] Creatinine, Urine 64.0 mg/dL LAB CHEMISTRY METHOD 07/12/2024 6:44 PM EST [facility] Urine Urine specimen obtained by clean catch procedure / Unknown Non-blood Collection / Unknown 07/12/2024 3:27 PM EST 07/12/2024 4:10 PM EST Chencho Wayne MD LAB URINE ORDERABLES Final Resu lt [facility] [address] [place] [address], [place] [phone] * Creatinine, urine, random (07/12/2024 3:27 PM EST) Creatinine, Urine 64.0 mg/dL LAB CHEMISTRY METHOD 07/12/2024 4:41 PM EST [facility] Urine Urine specimen from urethra / Unknown Non-blood Collection / Unknown 07/12/2024 3:27 PM EST 07/12/2024 4:11 PM EST Chencho Wayne MD LAB URINE ORDERABLES Final Resu lt Performing Organization Address [facility]/ZIP Co de Phone Number [facility] [address] [place] [address], [place] [phone] * Sodium, urine, random (07/12/2024 3:27 PM EST) Sodium, Ur 34 mmol/L LAB CHEMISTRY METHOD 07/12/2024 6:44 PM EST [facility] Urine Urine specimen obtained by clean catch procedure / Unknown Non-blood Collection / Unknown 07/12/2024 3:27 PM EST 07/12/2024 4:10 PM EST [facility] LAB URINE ORDERABLES Final Re sult Performing Organization Address [facility] de Phone Number [facility] [address] [place] [address], [place] [phone] * Osmolality, urine (07/12/2024 3:27 PM EST) Osmolality, Urine 397 300 - 1,300 mOsm/kg LAB CHEMISTRY METHOD 07/12/2024 5:57 PM EST [facility] Urine Urine specimen obtained by clean catch procedure / Unknown Non-blood Collection / Unknown 07/12/2024 3:27 PM EST 07/12/2024 4:10 PM EST [facility] LAB URINE ORDERABLES Final Re sult Performing Organization Address [facility]/ZIP Co de Phone Number [facility] [address] [place] [address], [place] [phone] * CT Chest wo Contrast (07/12/2024 12:48 PM EST) Anatomical Region Laterality Modality Body Computed Tomogra phy 07/12/2024 1:07 PM EST Impressions 07/12/2024 1:19 PM EST Impression: 1. No significant change in an irregular juxtapleural nodular opacity in the right lung apex. Malignancy is not excluded. 2. No developing lymphadenopathy. 3. Small bilateral pleural effusions[place] ([id number]) -------- FINAL REPORT -------- Dictated By: Edilia Durbin Dictated Date: 07/12/2024 13:07 ET Assigned Physician: Edilia Durbin Reviewed and Electronically Signed By: Edilia Durbin Signed Date: 07/12/2024 13:19 ET Workstation ID: [id number] Transcribed By: Self Edit Transcribed Date: 07/12/2024 13:07 ET Narrative 07/12/2024 1:19 PM EST History: Abnormal chest radiograph. The patient underwent nondiagnostic CT- guided biopsy of the right apical lung nodule on 05/23/24. Comparison: Thoracic CT 06/17/24, 03/21/24 Technique: Helical volumetric imaging of the thorax was performed without IV contrast. DLP: 613.10 mGy/cm Micromuscle VCT Iterative reconstruction technique Findings: Respiratory motion [...] was performed withoutIV contrast. DLP: 613.10 mGy/cm [facility] Iterative reconstruction technique Findings: Respiratory motion artifact [...] Small bilateral pleural effusions, new. [place] ([id number]) -------- FINAL REPORT -------- Dictated By: Edilia Durbin Dictated Date: 07/12/2024 13:07 ET Assigned Physician: Edilia Durbin Reviewed and Electronically Signed By: Edilia Durbin Signed Date: 07/12/2024 13:19 ET Workstation ID: [id number] Transcribed By: Self Edit Transcribed Date: 07/12/2024 13:07 ET us Kwesi Guido MD IMG CT PROCEDURES [place] Result * (ABNORMAL) POCT Glucose, blood (07/12/2024 11:48 AM EST) Glucose POCT 176(H) 70 - 100 mg/dL 07/12/2024 11:49 AM EST [facility] Blood Capillary blood specimen / Unknown 07/12/2024 11:48 AM EST 07/12/2024 11:50 AM EST us Kwesi Guido MD LAB [facility] ARE TEST DOCKED DEVICE UNSOLICITED RESULTS Final Result Performing Organization Address City/[facility]/ZIP Co de Phone Number [facility] [address] [place] [address], * (ABNORMAL) POCT Glucose, blood (07/12/2024 8:07 AM EST) Glucose POCT 166(H) 70 - 100 mg/dL 07/12/2024 8:31 AM EST [facility] Blood Capillary blood specimen / Unknown 07/12/2024 8:07 AM EST 07/12/2024 8:32 AM EST us Kwesi Guido MD LAB POINT OF ARE TEST DOCKED DEVICE UNSOLICITED RESULTS Final Result [facility] [address] [place] [address], [place] [phone] * (ABNORMAL) Lipase (07/12/2024 6:19 AM EST) Lipase <10(L) 13 - 75 unit/L LAB CHEMISTRY METHOD 07/12/2024 3:26 PM EST [facility] Blood Venous blood specimen / Unknown Venipuncture / Unknown 07/12/2024 6:19 AM EST 07/12/2024 6:56 AM EST Kwesi Guido MD LAB BLOOD ORDERABLES F inal Result [facility] [address] [place] [address], * (ABNORMAL) Hepatic function panel (07/12/2024 6:19 AM EST) Total Protein 4.9(L) 6.0 - 8.0 g/dL LAB CHEMISTRY METHOD 07/12/2024 3:26 PM [facility] Albumin 1.5(L) 3.2 - 5.0 g/dL LAB CHEMISTRY METHOD 07/12/2024 3:26 PM [facility] Total Bilirubin 0.5 0.0 - 1.4 mg/dL LAB CHEMISTRY METHOD 07/12/2024 3:26 PM [facility] Bilirubin, Direct 0.2 0.0 - 0.3 mg/dL LAB CHEMISTRY METHOD 07/12/2024 3:26 PM [facility] Bilirubin, Indirect 0.3 0.0 - 1.1 mg/dL LAB CHEMISTRY METHOD 07/12/2024 3:26 PM [facility] ALT (SGPT) 37 10 - 60 unit/L LAB CHEMISTRY METHOD 07/12/2024 3:26 PM [facility] AST (SGOT) 32 10 - 42 unit/L LAB CHEMISTRY METHOD 07/12/2024 3:26 PM [facility] Alkaline Phosphatase 157(H) 42 - 121 unit/L LAB CHEMISTRY METHOD 07/12/2024 3:26 PM [facility] Blood Venous blood specimen / Unknown Venipuncture / Unknown 07/12/2024 6:19 AM EST 07/12/2024 6:56 AM EST us Kwesi Guido MD LAB BLOOD ORDERABLES F inal Result Performing Organization Address City/[facility]/ZIP Co de Phone Number [facility] [address] [place] [address], [place] [phone] * (ABNORMAL) Procalcitonin (07/12/2024 6:19 AM EST) Procalcitonin 3.11(H) <=0.16 ng/mL LAB CHEMISTRY METHOD 07/12/2024 12:23 PM EST [facility] Blood Venous blood specimen / Unknown Venipuncture / Unknown 07/12/2024 6:19 AM EST 07/12/2024 6:56 AM EST Narrative [facility] - 07/12/2024 12:23 PM EST [...] inal Result Performing Organization Address [facility]/ZIP Co de Phone Number [facility] [address] [place] [address], [place] [phone] * (ABNORMAL) C-reactive protein (07/12/2024 6:19 AM EST) [facility] C-Reactive Protein 16.60(H) <=0.50 mg/dL LAB CHEMISTRY METHOD 07/12/2024 10:35 AM [facility] Blood Venous blood specimen / Unknown Venipuncture / Unknown 07/12/2024 6:19 AM EST 07/12/2024 6:56 AM EST us Kwesi Guido MD LAB BLOOD ORDERABLES F inal Result [facility] [address] [place] [address], [place] [phone] * (ABNORMAL) CBC auto differential (07/12/2024 6:19 AM EST) [facility] WBC 21.8(H) 4.8 - 10.8 K/mcL LAB HEMETOLOGY METHOD 07/12/2024 7:08 AM [facility] RBC 3.10(L) 3.80 - 4.80 M/mcL LAB HEMETOLOGY METHOD 07/12/2024 7:08 AM [facility] Hemoglobin 7.2(L) 11.5 - 16.0 g/dL LAB HEMETOLOGY METHOD 07/12/2024 7:08 AM [facility] Hematocrit 22.6(L) 35.0 - 47.0 % LAB HEMETOLOGY METHOD 07/12/2024 7:08 AM [facility] MCV 74.1(L) 79.0 - 98.0 FL LAB HEMETOLOGY METHOD 07/12/2024 7:08 AM [facility] MCH 23.6(L) 27.0 - 32.0 pcg LAB HEMETOLOGY METHOD 07/12/2024 7:08 AM [facility] MCHC 31.9(L) 32.0 - 37.0 g/dL LAB HEMETOLOGY METHOD 07/12/2024 7:08 AM [facility] RDW 21.0(H) 11.0 - 15.0 % LAB HEMETOLOGY METHOD 07/12/2024 7:08 AM [facility] Platelets 206 130 - 400 K/mcL LAB HEMETOLOGY METHOD 07/12/2024 7:08 AM [facility] MPV 9.6 7.0 - 11.0 FL LAB HEMETOLOGY METHOD 07/12/2024 7:08 AM [facility] NRBC 0.0 <1.0 % LAB HEMETOLOGY METHOD 07/12/2024 7:08 AM [facility] NRBC Absolute 0.00 <0.10 K/mcL LAB HEMETOLOGY METHOD 07/12/2024 7:08 AM [facility] Neutrophils Relative 86.5 % LAB HEMETOLOGY METHOD 07/12/2024 7:08 AM [facility] Lymphocytes Relative 2.7 % LAB HEMETOLOGY METHOD 07/12/2024 7:08 AM [facility] Monocytes Relative 5.8 % LAB HEMETOLOGY METHOD 07/12/2024 7:08 AM [facility] Eosinophils Relative 2.8 % LAB HEMETOLOGY METHOD 07/12/2024 7:08 AM [facility] Basophils Relative 0.2 % LAB HEMETOLOGY METHOD 07/12/2024 7:08 AM [facility] Immature Granulocytes Relative 2.0 % LAB HEMETOLOGY METHOD 07/12/2024 7:08 AM [facility] Neutrophils Absolute 18.89(H) 1.50 - 7.00 K/mcL LAB HEMETOLOGY METHOD 07/12/2024 7:08 AM [facility] Lymphocytes Absolute 0.59(L) 1.00 - 5.00 K/mcL LAB HEMETOLOGY METHOD 07/12/2024 7:08 AM EST [facility] Monocytes Absolute 1.27(H) 0.20 - 1.00 K/[facility] LAB HEMETOLOGY METHOD 07/12/2024 7:08 AM EST [facility] Eosinophils Absolute 0.62(H) 0.00 - 0.50 K/[facility] LAB HEMETOLOGY METHOD 07/12/2024 7:08 AM EST [facility] Basophils Absolute 0.04 0.00 - 0.20 K/[facility] LAB HEMETOLOGY METHOD 07/12/2024 7:08 AM EST [facility] Immature Granulocytes Absolute 0.43(H) 0.00 - 0.03 K/[facility] LAB HEMETOLOGY METHOD 07/12/2024 7:08 AM [facility] Blood Venous blood specimen / Unknown Venipuncture / Unknown 07/12/2024 6:19 AM EST 07/12/2024 6:58 AM EST us Kwesi Guido MD LAB BLOOD ORDERABLES F inal Result [facility] [address] [place] [address], * Phosphorus (07/12/2024 6:19 AM EST) Phosphorus 2.9 2.5 - 4.5 mg/dL LAB CHEMISTRY METHOD 07/12/2024 7:48 AM EST [facility] Blood Venous blood specimen / Unknown Venipuncture / Unknown 07/12/2024 6:19 AM EST 07/12/2024 6:56 AM EST us Kwesi Guido MD LAB BLOOD ORDERABLES F inal Result [facility] [address] [place] [address], [place] [phone] * (ABNORMAL) Magnesium (07/12/2024 6:19 AM EST) [facility] Magnesium 1.8(L) 1.9 - 2.6 mg/dL LAB CHEMISTRY METHOD 07/12/2024 7:48 AM [facility] Blood Venous blood specimen / Unknown Venipuncture / Unknown 07/12/2024 6:19 AM EST 07/12/2024 6:56 AM EST us Kwesi Guido MD LAB BLOOD ORDERABLES F inal Result [facility] [address] [place] [address], [place] [phone] * (ABNORMAL) Basic metabolic panel (07/12/2024 6:19 AM EST) [facility] Sodium 132(L) 133 - 145 mmol/L LAB CHEMISTRY METHOD 07/12/2024 7:49 AM [facility] Potassium 3.7 3.5 - 5.5 mmol/L LAB CHEMISTRY METHOD 07/12/2024 7:49 AM [facility] Chloride 102 96 - 110 mmol/L LAB CHEMISTRY METHOD 07/12/2024 7:49 AM [facility] CO2 18(L) 21 - 32 mmol/L LAB CHEMISTRY METHOD 07/12/2024 7:49 AM [facility] Anion Gap 12(H) 3 - 11 LAB CHEMISTRY METHOD 07/12/2024 7:49 AM [facility] Glucose 132(H) 70 - 100 mg/dL LAB CHEMISTRY METHOD 07/12/2024 7:49 AM [facility] BUN 70(H) 5 - 25 mg/dL LAB CHEMISTRY METHOD 07/12/2024 7:49 AM [facility] Creatinine 4.64(H) 0.50 - 1.10 mg/dL LAB CHEMISTRY METHOD 07/12/2024 7:49 AM EST [facility] eGFR 9(L) >=60 mL/min/1. 73m2 LAB CHEMISTRY METHOD 07/12/2024 7:49 AM EST [facility] Comment:Calculation based on the??Chronic Kidney Disease Epidemiology Collaboration (CKD-EPI) equation refit??without adjustment for race. BUN/Creatinine Ratio 15.1 LAB CHEMISTRY METHOD 07/12/2024 7:49 AM [facility] Calcium 8.1(L) 8.5 - 10.5 mg/dL LAB CHEMISTRY METHOD 07/12/2024 7:49 AM [facility] Blood Venous blood specimen / Unknown Venipuncture / Unknown 07/12/2024 6:19 AM EST 07/12/2024 6:56 AM EST us Kwesi Guido MD LAB BLOOD ORDERABLES F inal Result [facility] [address] [place] [address], [place] [phone] * (ABNORMAL) POCT Glucose, blood (07/11/2024 8:03 PM EST) Glucose POCT 257(H) 70 - 100 mg/dL 07/11/2024 8:04 PM EST [facility] POCT Comment RN Notified 07/11/2024 8:04 PM EST [facility] Blood Capillary blood specimen / Unknown 07/11/2024 8:03 PM EST 07/11/2024 8:05 PM EST us Kwesi Guido MD LAB POINT OF C ARE TEST DOCKED DEVICE UNSOLICITED RESULTS Final Result [facility] [address] [place] [address], [place] [phone] * (ABNORMAL) POCT Glucose, blood (07/11/2024 3:51 PM EST) Glucose POCT 259(H) 70 - 100 mg/dL 07/11/2024 3:51 PM EST [facility] Blood Capillary blood specimen / Unknown 07/11/2024 3:51 PM EST 07/11/2024 3:52 PM EST us Kwesi Guido MD LAB POINT OF ARE TEST DOCKED DEVICE UNSOLICITED RESULTS Final Result [facility] [address] [place] [address], [place] [phone] * (ABNORMAL) POCT Glucose, blood (07/11/2024 11:10 AM EST) Glucose POCT 301(H) 70 - 100 mg/dL 07/11/2024 11:11 AM EST [facility] Blood Capillary blood specimen / Unknown 07/11/2024 11:10 AM EST 07/11/2024 11:13 AM EST us Kwesi Guido MD LAB POINT OF ARE TEST DOCKED DEVICE UNSOLICITED RESULTS Final Result [facility] [address] [place] [address], [place] [phone] * (ABNORMAL) POCT Glucose, blood (07/11/2024 8:17 AM EST) Glucose POCT 191(H) 70 - 100 mg/dL 07/11/2024 8:17 AM EST [facility] Blood Capillary blood specimen / Unknown 07/11/2024 8:17 AM EST 07/11/2024 8:19 AM EST Kwesi Guido MD LAB POINT OF C ARE TEST DOCKED DEVICE UNSOLICITED RESULTS Final Result Performing Organization Address City/[facility]/ZIP Co de Phone Number [facility] [address] [place] [address], [place] [phone] * Pathologist Review Immunofixation (07/11/2024 6:21 AM EST) Pathologist [facility] Pathologist Interpretation Reviewed by Rosenda Galeana MD 07/13/2024 4:13 PM EST [facility] Blood Venous blood specimen / Unknown Venipuncture / Unknown 07/11/2024 6:21 AM EST 07/11/2024 6:43 AM EST Chencho Wayne MD LAB BLOOD ORDERABLES Final Resu lt [facility] [address] [place] [address], [place] [phone] * (ABNORMAL) Hepatic function panel (07/11/2024 6:21 AM EST) Pathologist [facility] Total Protein 5.1(L) 6.0 - 8.0 g/dL LAB CHEMISTRY METHOD 07/12/2024 3:26 PM [facility] Albumin 1.5(L) 3.2 - 5.0 g/dL LAB CHEMISTRY METHOD 07/12/2024 3:26 PM [facility] Total Bilirubin 0.6 0.0 - 1.4 mg/dL LAB CHEMISTRY METHOD 07/12/2024 3:26 PM [facility] Bilirubin, Direct 0.3 0.0 - 0.3 mg/dL LAB CHEMISTRY METHOD 07/12/2024 3:26 PM [facility] Bilirubin, Indirect 0.3 0.0 - 1.1 mg/dL LAB CHEMISTRY METHOD 07/12/2024 3:26 PM EST [facility] ALT (SGPT) 39 10 - 60 unit/L LAB CHEMISTRY METHOD 07/12/2024 3:26 PM [facility] AST (SGOT) 36 10 - 42 unit/L LAB CHEMISTRY METHOD 07/12/2024 3:26 PM [facility] Alkaline Phosphatase 168(H) 42 - 121 unit/L LAB CHEMISTRY METHOD 07/12/2024 3:26 PM EST [facility] Blood Venous blood specimen / Unknown Venipuncture / Unknown 07/11/2024 6:21 AM EST 07/11/2024 6:42 AM EST Kwesi Guido MD LAB BLOOD ORDERABLES F inal Result Performing Organization Address City/[facility]/ZIP Co de Phone Number [facility] [address] [place] [address], [place] [phone] * Immunoglobulins IgG, IgA, IgM (07/11/2024 6:21 AM EST) Total IgG 1,090 549 - 1,584 mg/dL LAB CHEMISTRY METHOD 07/11/2024 7:29 AM EST [facility] IgA 172 61 - 348 mg/dL LAB CHEMISTRY METHOD 07/11/2024 7:29 AM EST [facility] IgM 38 23 - 259 mg/dL LAB CHEMISTRY METHOD 07/11/2024 7:29 AM EST [facility] Blood Venous blood specimen / Unknown Venipuncture / Unknown 07/11/2024 6:21 AM EST 07/11/2024 6:42 AM EST Chencho Wayne MD LAB BLOOD ORDERABLES Final Resu lt Performing Organization Address City/[facility]/ZIP Co de Phone Number [facility] [address] [place] [address], [place] [phone] * Immunofixation electrophoresis serum (07/11/2024 6:21 AM EST) Pathologist [facility] Immunofixation Result, Serum Faint restriction of IgG [place], not observed on SPEP . Follow-up in 6 months if clinically indicated. LAB CHEMISTRY METHOD 07/13/2024 4:13 PM [facility] Blood Venous blood specimen / Unknown Venipuncture / Unknown 07/11/2024 6:21 AM EST 07/11/2024 6:43 AM EST us Chencho Wayne MD LAB BLOOD ORDERABLES Final Resu lt [facility] [address] [place] [address], [place] [phone] * (ABNORMAL) CBC auto differential (07/11/2024 6:21 AM EST) [facility] WBC 18.4(H) 4.8 - 10.8 K/mcL LAB HEMETOLOGY METHOD 07/11/2024 6:52 AM [facility] RBC 3.20(L) 3.80 - 4.80 M/mcL LAB HEMETOLOGY METHOD 07/11/2024 6:52 AM [facility] Hemoglobin 7.4(L) 11.5 - 16.0 g/dL LAB HEMETOLOGY METHOD 07/11/2024 6:52 AM [facility] Hematocrit 23.7(L) 35.0 - 47.0 % LAB HEMETOLOGY METHOD 07/11/2024 6:52 AM [facility] MCV 75.0(L) 79.0 - 98.0 FL LAB HEMETOLOGY METHOD 07/11/2024 6:52 AM [facility] MCH 23.4(L) 27.0 - 32.0 pcg LAB HEMETOLOGY METHOD 07/11/2024 6:52 AM [facility] MCHC 31.2(L) 32.0 - 37.0 g/dL LAB HEMETOLOGY METHOD 07/11/2024 6:52 AM [facility] RDW 20.2(H) 11.0 - 15.0 % LAB HEMETOLOGY METHOD 07/11/2024 6:52 AM [facility] Platelets 211 130 - 400 K/mcL LAB HEMETOLOGY METHOD 07/11/2024 6:52 AM [facility] MPV 9.1 7.0 - 11.0 FL LAB HEMETOLOGY METHOD 07/11/2024 6:52 AM [facility] NRBC 0.0 <1.0 % LAB HEMETOLOGY METHOD 07/11/2024 6:52 AM [facility] NRBC Absolute 0.00 <0.10 K/mcL LAB HEMETOLOGY METHOD 07/11/2024 6:52 AM [facility] Neutrophils Relative 86.2 % LAB HEMETOLOGY METHOD 07/11/2024 6:52 AM [facility] Lymphocytes Relative 3.0 % LAB HEMETOLOGY METHOD 07/11/2024 6:52 AM [facility] Monocytes Relative 5.9 % LAB HEMETOLOGY METHOD 07/11/2024 6:52 AM [facility] Eosinophils Relative 3.3 % LAB HEMETOLOGY METHOD 07/11/2024 6:52 AM [facility] Basophils Relative 0.2 % LAB HEMETOLOGY METHOD 07/11/2024 6:52 AM [facility] Immature Granulocytes Relative 1.4 % LAB HEMETOLOGY METHOD 07/11/2024 6:52 AM [facility] Neutrophils Absolute 15.84(H) 1.50 - 7.00 K/mcL LAB HEMETOLOGY METHOD 07/11/2024 6:52 AM [facility] Lymphocytes Absolute 0.56(L) 1.00 - 5.00 K/mcL LAB HEMETOLOGY METHOD 07/11/2024 6:52 AM EST [facility] Monocytes Absolute 1.09(H) 0.20 - 1.00 K/[facility] LAB HEMETOLOGY METHOD 07/11/2024 6:52 AM EST [facility] Eosinophils Absolute 0.61(H) 0.00 - 0.50 K/[facility] LAB HEMETOLOGY METHOD 07/11/2024 6:52 AM EST [facility] Basophils Absolute 0.04 0.00 - 0.20 K/[facility] HEMETOLOGY METHOD 07/11/2024 6:52 AM EST [facility] Immature Granulocytes Absolute 0.26(H) 0.00 - 0.03 K/[facility] LAB HEMETOLOGY METHOD 07/11/2024 6:52 AM [facility] Blood Venous blood specimen / Unknown Venipuncture / Unknown 07/11/2024 6:21 AM EST 07/11/2024 6:41 AM EST us Maria Alejandra Melendez MD LAB BLOOD ORDERABLES Final Res ult [facility] [address] [place] [address], * (ABNORMAL) Basic metabolic panel (07/11/2024 6:21 AM EST) Sodium 130(L) 133 - 145 mmol/L LAB CHEMISTRY METHOD 07/11/2024 7:27 AM EST [facility] Potassium 3.7 3.5 - 5.5 mmol/L LAB CHEMISTRY METHOD 07/11/2024 7:27 AM [facility] Chloride 102 96 - 110 mmol/L LAB CHEMISTRY METHOD 07/11/2024 7:27 AM EST [facility] CO2 19(L) 21 - 32 mmol/L LAB CHEMISTRY METHOD 07/11/2024 7:27 AM [facility] Anion Gap 9 3 - 11 LAB CHEMISTRY METHOD 07/11/2024 7:27 AM [facility] Glucose 174(H) 70 - 100 mg/dL LAB CHEMISTRY METHOD 07/11/2024 7:27 AM [facility] BUN 69(H) 5 - 25 mg/dL LAB CHEMISTRY METHOD 07/11/2024 7:27 AM [facility] Creatinine 4.36(H) 0.50 - 1.10 mg/dL LAB CHEMISTRY METHOD 07/11/2024 7:27 AM [facility] eGFR 10(L) >=60 mL/min/1. 73m2 LAB CHEMISTRY METHOD 07/11/2024 7:27 AM [facility] Comment:Calculation based on the??Chronic Kidney Disease Epidemiology Collaboration (CKD-EPI) equation refit??without adjustment for race. BUN/Creatinine Ratio 15.8 LAB CHEMISTRY METHOD 07/11/2024 7:27 AM [facility] Calcium 8.2(L) 8.5 - 10.5 mg/dL LAB CHEMISTRY METHOD 07/11/2024 7:27 AM [facility] Blood Venous blood specimen / Unknown Venipuncture / Unknown 07/11/2024 6:21 AM EST 07/11/2024 6:42 AM EST us Maria Alejandra Melendez MD LAB BLOOD ORDERABLES Final Res ult [facility] [address] [place] [address], * (ABNORMAL) POCT Glucose, blood (07/10/2024 8:33 PM EST) Glucose POCT 325(H) 70 - 100 mg/dL 07/10/2024 8:34 PM [facility] Blood Capillary blood specimen / Unknown 07/10/2024 8:33 PM EST 07/10/2024 8:35 PM EST Maria Alejandra Melendez MD LAB POINT OF CARE TE ST DOCKED DEVICE UNSOLICITED RESULTS Final Result Performing Organization Address [facility] Co de Phone Number [facility] [address] [place] [address], [place] [phone] * (ABNORMAL) POCT Glucose, blood (07/10/2024 4:11 PM EST) Glucose POCT 287(H) 70 - 100 mg/dL 07/10/2024 4:12 PM EST [facility] Blood Capillary blood specimen / Unknown 07/10/2024 4:11 PM EST 07/10/2024 4:13 PM EST us Maria Alejandra Melendez MD LAB POINT OF CARE TE ST DOCKED DEVICE UNSOLICITED RESULTS Final Result Performing Organization Address [facility] Co de Phone Number [facility] [address] [place] [address], [place] [phone] * (ABNORMAL) POCT Glucose, blood (07/10/2024 11:29 AM EST) Glucose POCT 214(H) 70 - 100 mg/dL 07/10/2024 11:45 AM EST [facility] Blood Capillary blood specimen / Unknown 07/10/2024 11:29 AM EST 07/10/2024 11:47 AM EST us Maria Alejandra Melendez MD LAB POINT OF CARE TE ST DOCKED DEVICE UNSOLICITED RESULTS Final Result Performing Organization Address [facility]/ZIP Co de Phone Number [facility] [address] [place] [address], [place] [phone] * (ABNORMAL) POCT Glucose, blood (07/10/2024 8:40 AM EST) [facility] Glucose POCT 164(H) 70 - 100 mg/dL 07/10/2024 8:42 AM EST [facility] Blood Capillary blood specimen / Unknown 07/10/2024 8:40 AM EST 07/10/2024 8:43 AM EST us Maria Alejandra Melendez MD LAB POINT OF CARE TE ST DOCKED DEVICE UNSOLICITED RESULTS Final Result Performing Organization Address [facility] de Phone Number [facility] [address] [place] [address], [place] [phone] * (ABNORMAL) Triiodothyronine free (07/10/2024 5:16 AM EST) [facility] T3, Free 154(L) 230 - 420 pcg/dL LAB CHEMISTRY METHOD 07/10/2024 2:10 PM EST [facility] Blood Venous blood specimen / Unknown Venipuncture / Unknown 07/10/2024 5:16 AM EST 07/10/2024 6:42 AM EST us Maria Alejandra Melendez MD LAB BLOOD ORDERABLES Final Res ult Performing Organization Address [facility] de Phone Number [facility] [address] [place] [address], [place] [phone] * Thyroxine free (07/10/2024 5:16 AM EST) Free T4 0.92 0.70 - 1.80 ng/dL LAB CHEMISTRY METHOD 07/10/2024 2:04 PM EST [facility] Blood Venous blood specimen / Unknown Venipuncture / Unknown 07/10/2024 5:16 AM EST 07/10/2024 6:42 AM EST us Maria Alejandra Melendez MD LAB BLOOD ORDERABLES Final Res ult [facility] [address] [place] [address], [place] [phone] * (ABNORMAL) Parathyroid hormone intact (07/10/2024 5:16 AM EST) Pathologist [facility] PTH 10.5(L) 18.5 - 88.0 pcg/mL LAB CHEMISTRY METHOD 07/10/2024 1:47 PM [facility] Blood Venous blood specimen / Unknown Venipuncture / Unknown 07/10/2024 5:16 AM EST 07/10/2024 6:42 AM EST us Maria Alejandra Melendez MD LAB BLOOD ORDERABLES Final Res ult [facility] [address] [place] [address], * (ABNORMAL) CBC auto differential (07/10/2024 5:16 AM EST) Pathologist [facility] WBC 16.9(H) 4.8 - 10.8 K/mcL LAB HEMETOLOGY METHOD 07/10/2024 7:29 AM [facility] RBC 3.30(L) 3.80 - 4.80 M/mcL LAB HEMETOLOGY METHOD 07/10/2024 7:29 AM [facility] Hemoglobin 7.6(L) 11.5 - 16.0 g/dL LAB HEMETOLOGY METHOD 07/10/2024 7:29 AM [facility] Hematocrit 24.4(L) 35.0 - 47.0 % LAB HEMETOLOGY METHOD 07/10/2024 7:29 AM [facility] MCV 74.4(L) 79.0 - 98.0 FL LAB HEMETOLOGY METHOD 07/10/2024 7:29 AM [facility] MCH 23.2(L) 27.0 - 32.0 pcg LAB HEMETOLOGY METHOD 07/10/2024 7:29 AM [facility] MCHC 31.1(L) 32.0 - 37.0 g/dL LAB HEMETOLOGY METHOD 07/10/2024 7:29 AM [facility] RDW 19.8(H) 11.0 - 15.0 % LAB HEMETOLOGY METHOD 07/10/2024 7:29 AM [facility] Platelets 277 130 - 400 K/mcL LAB HEMETOLOGY METHOD 07/10/2024 7:29 AM [facility] MPV 9.1 7.0 - 11.0 FL LAB HEMETOLOGY METHOD 07/10/2024 7:29 AM [facility] NRBC 0.0 <1.0 % LAB HEMETOLOGY METHOD 07/10/2024 7:29 AM [facility] NRBC Absolute 0.00 <0.10 K/mcL LAB HEMETOLOGY METHOD 07/10/2024 7:29 AM [facility] Neutrophils Relative 86.9 % LAB HEMETOLOGY METHOD 07/10/2024 7:29 AM [facility] Lymphocytes Relative 3.2 % LAB HEMETOLOGY METHOD 07/10/2024 7:29 AM [facility] Monocytes Relative 5.9 % LAB HEMETOLOGY METHOD 07/10/2024 7:29 AM [facility] Eosinophils Relative 2.8 % LAB HEMETOLOGY METHOD 07/10/2024 7:29 AM [facility] Basophils Relative 0.2 % LAB HEMETOLOGY METHOD 07/10/2024 7:29 AM [facility] Immature Granulocytes Relative 1.0 % LAB HEMETOLOGY METHOD 07/10/2024 7:29 AM [facility] Neutrophils Absolute 14.72(H) 1.50 - 7.00 K/mcL LAB HEMETOLOGY METHOD 07/10/2024 7:29 AM EST [facility] Lymphocytes Absolute 0.54(L) 1.00 - 5.00 K/[facility] LAB HEMETOLOGY METHOD 07/10/2024 7:29 AM EST [facility] Monocytes Absolute 1.00 0.20 - 1.00 K/[facility] LAB HEMETOLOGY METHOD 07/10/2024 7:29 AM EST [facility] Eosinophils Absolute 0.47 0.00 - 0.50 K/[facility] LAB HEMETOLOGY METHOD 07/10/2024 7:29 AM EST [facility] Basophils Absolute 0.04 0.00 - 0.20 K/[facility] LAB HEMETOLOGY METHOD 07/10/2024 7:29 AM [facility] Immature Granulocytes Absolute 0.17(H) 0.00 - 0.03 K/[facility] LAB HEMETOLOGY METHOD 07/10/2024 7:29 AM EST [facility] Blood Venous blood specimen / Unknown Venipuncture / Unknown 07/10/2024 5:16 AM EST 07/10/2024 6:43 AM EST Maria Alejandra Melendez MD LAB BLOOD ORDERABLES Final Res ult Performing Organization Address [facility]/ZIP Co de Phone Number [facility] [address] [place] [address], * (ABNORMAL) Magnesium (07/10/2024 5:16 AM EST) Magnesium 1.8(L) 1.9 - 2.6 mg/dL LAB CHEMISTRY METHOD 07/10/2024 7:38 AM EST [facility] Blood Venous blood specimen / Unknown Venipuncture / Unknown 07/10/2024 5:16 AM EST 07/10/2024 6:42 AM EST Maria Alejandra Melendez MD LAB BLOOD ORDERABLES Final Res ult [facility] [address] [place] [address], * (ABNORMAL) Basic metabolic panel (07/10/2024 5:16 AM EST) Sodium 133 133 - 145 mmol/L LAB CHEMISTRY METHOD 07/10/2024 7:39 AM [facility] Potassium 3.8 3.5 - 5.5 mmol/L LAB CHEMISTRY METHOD 07/10/2024 7:39 AM [facility] Chloride 105 96 - 110 mmol/L LAB CHEMISTRY METHOD 07/10/2024 7:39 AM [facility] CO2 20(L) 21 - 32 mmol/L LAB CHEMISTRY METHOD 07/10/2024 7:39 AM [facility] Anion Gap 8 3 - 11 LAB CHEMISTRY METHOD 07/10/2024 7:39 AM [facility] Glucose 167(H) 70 - 100 mg/dL LAB CHEMISTRY METHOD 07/10/2024 7:39 AM [facility] BUN 65(H) 5 - 25 mg/dL LAB CHEMISTRY METHOD 07/10/2024 7:39 AM [facility] Creatinine 4.19(H) 0.50 - 1.10 mg/dL LAB CHEMISTRY METHOD 07/10/2024 7:39 AM [facility] eGFR 10(L) >=60 mL/min/1. 73m2 LAB CHEMISTRY METHOD 07/10/2024 7:39 AM [facility] Comment:Calculation based on the??Chronic Kidney Disease Epidemiology Collaboration (CKD-EPI) equation refit??without adjustment for race. BUN/Creatinine Ratio 15.5 LAB CHEMISTRY METHOD 07/10/2024 7:39 AM [facility] Calcium 8.5 8.5 - 10.5 mg/dL LAB CHEMISTRY METHOD 07/10/2024 7:39 AM [facility] Blood Venous blood specimen / Unknown Venipuncture / Unknown 07/10/2024 5:16 AM EST 07/10/2024 6:42 AM EST Maria Alejandra Melendez MD LAB BLOOD ORDERABLES Final Res ult Performing Organization Address [facility]/ZIP Co de Phone Number [facility] [address] [place] [address], [place] [phone] * (ABNORMAL) POCT Glucose, blood (07/09/2024 7:52 PM EST) Glucose POCT 243(H) 70 - 100 mg/dL 07/09/2024 7:53 PM EST [facility] Blood Capillary blood specimen / Unknown 07/09/2024 7:52 PM EST 07/09/2024 7:54 PM EST Maria Alejandra Melendez MD LAB POINT OF CARE TE ST DOCKED DEVICE UNSOLICITED RESULTS Final Result Performing Organization Address [facility]/ZIP Co de Phone Number [facility] [address] [place] [address], [place] [phone] * (ABNORMAL) POCT Glucose, blood (07/09/2024 4:27 PM EST) Glucose POCT 264(H) 70 - 100 mg/dL 07/09/2024 4:28 PM EST [facility] Blood Capillary blood specimen / Unknown 07/09/2024 4:27 PM EST 07/09/2024 4:29 PM EST Maria Alejandra Melendez MD LAB POINT OF CARE TE ST DOCKED DEVICE UNSOLICITED RESULTS Final Result Performing Organization Address [facility] Center/ZIP Co de Phone Number [facility] [address] [place] [address], [place] [phone] * (ABNORMAL) POCT Glucose, blood (07/09/2024 11:33 AM EST) Glucose POCT 179(H) 70 - 100 mg/dL 07/09/2024 11:34 AM EST [facility] Blood Capillary blood specimen / Unknown 07/09/2024 11:33 AM EST 07/09/2024 11:35 AM EST Maria Alejandra Melendez MD LAB POINT OF CARE TE ST DOCKED DEVICE UNSOLICITED RESULTS Final Result Performing Organization Address City/[facility]/ZIP Co de Phone Number [facility] [address] [place] [address], [place] [phone] * (ABNORMAL) POCT Glucose, blood (07/09/2024 8:59 AM EST) Glucose POCT 175(H) 70 - 100 mg/dL 07/09/2024 9:06 AM EST [facility] Blood Capillary blood specimen / Unknown 07/09/2024 8:59 AM EST 07/09/2024 9:08 AM EST us Maria Alejandra Melendez MD LAB POINT OF CARE TE ST DOCKED DEVICE UNSOLICITED RESULTS Final Result Performing Organization Address City/[facility]/ZIP Co de Phone Number [facility] [address] [place] [address], [place] [phone] * (ABNORMAL) CBC auto differential (07/09/2024 6:25 AM EST) WBC 18.4(H) 4.8 - 10.8 K/mcL LAB HEMETOLOGY METHOD 07/09/2024 8:05 AM EST [facility] RBC 3.50(L) 3.80 - 4.80 M/mcL LAB HEMETOLOGY METHOD 07/09/2024 8:05 AM EST [facility] Hemoglobin 8.3(L) 11.5 - 16.0 g/dL LAB HEMETOLOGY METHOD 07/09/2024 8:05 AM [facility] Hematocrit 26.1(L) 35.0 - 47.0 % LAB HEMETOLOGY METHOD 07/09/2024 8:05 AM [facility] MCV 74.4(L) 79.0 - 98.0 FL LAB HEMETOLOGY METHOD 07/09/2024 8:05 AM [facility] MCH 23.6(L) 27.0 - 32.0 pcg LAB HEMETOLOGY METHOD 07/09/2024 8:05 AM [facility] MCHC 31.8(L) 32.0 - 37.0 g/dL LAB HEMETOLOGY METHOD 07/09/2024 8:05 AM [facility] RDW 19.2(H) 11.0 - 15.0 % LAB HEMETOLOGY METHOD 07/09/2024 8:05 AM [facility] Platelets 333 130 - 400 K/mcL LAB HEMETOLOGY METHOD 07/09/2024 8:05 AM [facility] MPV 9.1 7.0 - 11.0 FL LAB HEMETOLOGY METHOD 07/09/2024 8:05 AM [facility] NRBC 0.0 <1.0 % LAB HEMETOLOGY METHOD 07/09/2024 8:05 AM [facility] NRBC Absolute 0.00 <0.10 K/mcL LAB HEMETOLOGY METHOD 07/09/2024 8:05 AM [facility] Neutrophils Relative 89.0 % LAB HEMETOLOGY METHOD 07/09/2024 8:05 AM [facility] Lymphocytes Relative 2.8 % LAB HEMETOLOGY METHOD 07/09/2024 8:05 AM [facility] Monocytes Relative 6.1 % LAB HEMETOLOGY METHOD 07/09/2024 8:05 AM [facility] Eosinophils Relative 1.1 % LAB HEMETOLOGY METHOD 07/09/2024 8:05 AM [facility] Basophils Relative 0.2 % LAB HEMETOLOGY METHOD 07/09/2024 8:05 AM [facility] Immature Granulocytes Relative 0.8 % LAB HEMETOLOGY METHOD 07/09/2024 8:05 AM [facility] Neutrophils Absolute 16.38(H) 1.50 - 7.00 K/mcL LAB HEMETOLOGY METHOD 07/09/2024 8:05 AM [facility] Lymphocytes Absolute 0.52(L) 1.00 - 5.00 K/mcL LAB HEMETOLOGY METHOD 07/09/2024 8:05 AM [facility] Monocytes Absolute 1.13(H) 0.20 - 1.00 K/mcL LAB HEMETOLOGY METHOD 07/09/2024 8:05 AM [facility] Eosinophils Absolute 0.21 0.00 - 0.50 K/mcL LAB HEMETOLOGY METHOD 07/09/2024 8:05 AM [facility] Basophils Absolute 0.03 0.00 - 0.20 K/mcL LAB HEMETOLOGY METHOD 07/09/2024 8:05 AM [facility] Immature Granulocytes Absolute 0.14(H) 0.00 - 0.03 K/mcL LAB HEMETOLOGY METHOD 07/09/2024 8:05 AM [facility] Blood Venous blood specimen / Unknown Venipuncture / Unknown 07/09/2024 6:25 AM EST 07/09/2024 7:11 AM EST us Aye HEDRICK LAB BLOOD ORDERABLES Final Re sult [facility] [address] [place] [address], * Creatine kinase (07/09/2024 6:25 AM EST) Total CK 172 22 - 269 unit/L LAB CHEMISTRY METHOD 07/09/2024 8:11 AM EST [facility] Blood Venous blood specimen / Unknown Venipuncture / Unknown 07/09/2024 6:25 AM EST 07/09/2024 7:11 AM EST Aye HEDRICK LAB BLOOD ORDERABLES Final Re sult Performing Organization Address [facility]/ZIP Co de Phone Number [facility] [address] [place] [address], [place] [phone] * (ABNORMAL) Calcium, ionized (07/09/2024 6:25 AM EST) Calcium Ionized 5.66(H) 4.50 - 5.30 mg/dL 07/09/2024 7:23 AM EST [facility] Blood Venous blood specimen / Unknown Venipuncture / Unknown 07/09/2024 6:25 AM EST 07/09/2024 7:11 AM EST Aye HEDRICK LAB BLOOD ORDERABLES Final Re sult Performing Organization Address [facility]/ZIP Co de Phone Number [facility] [address] [place] [address], [place] [phone] * Magnesium (07/09/2024 6:25 AM EST) Magnesium 2.0 1.9 - 2.6 mg/dL LAB CHEMISTRY METHOD 07/09/2024 8:11 AM EST [facility] Blood Venous blood specimen / Unknown Venipuncture / Unknown 07/09/2024 6:25 AM EST 07/09/2024 7:11 AM EST Aye HEDRICK LAB BLOOD ORDERABLES Final Re sult [facility] [address] [place] [address], * (ABNORMAL) Basic metabolic panel (07/09/2024 6:25 AM EST) Sodium 131(L) 133 - 145 mmol/L LAB CHEMISTRY METHOD 07/09/2024 8:12 AM EST [facility] Potassium 3.8 3.5 - 5.5 mmol/L LAB CHEMISTRY METHOD 07/09/2024 8:12 AM [facility] Chloride 101 96 - 110 mmol/L LAB CHEMISTRY METHOD 07/09/2024 8:12 AM [facility] CO2 21 21 - 32 mmol/L LAB CHEMISTRY METHOD 07/09/2024 8:12 AM [facility] Anion Gap 9 3 - 11 LAB CHEMISTRY METHOD 07/09/2024 8:12 AM [facility] Glucose 170(H) 70 - 100 mg/dL LAB CHEMISTRY METHOD 07/09/2024 8:12 AM [facility] BUN 63(H) 5 - 25 mg/dL LAB CHEMISTRY METHOD 07/09/2024 8:12 AM [facility] Creatinine 4.07(H) 0.50 - 1.10 mg/dL LAB CHEMISTRY METHOD 07/09/2024 8:12 AM [facility] eGFR 11(L) >=60 mL/min/1. 73m2 LAB CHEMISTRY METHOD 07/09/2024 8:12 AM [facility] Comment:Calculation based on the??Chronic Kidney Disease Epidemiology Collaboration (CKD-EPI) equation refit??without adjustment for race. BUN/Creatinine Ratio 15.5 LAB CHEMISTRY METHOD 07/09/2024 8:12 AM [facility] Calcium 9.5 8.5 - 10.5 mg/dL LAB CHEMISTRY METHOD 07/09/2024 8:12 AM [facility] Blood Venous blood specimen / Unknown Venipuncture / Unknown 07/09/2024 6:25 AM EST 07/09/2024 7:11 AM EST us Aye HEDRICK LAB BLOOD ORDERABLES Final Re sult [facility] [address] [place] [address], * XR Chest 1 View (07/08/2024 10:00 [...] Signed Date: 07/09/2024 09:03 ET Workstation ID: [id number] Transcribed By: Self Edit Transcribed Date: 07/09/2024 [...] Signed Date: 07/09/2024 09:03 ET Workstation ID: [id number] Transcribed By: Self Edit Transcribed Date: 07/09/2024 09:02 ET us Aye HEDRICK IMG XR PROCEDURES Final Resul t * Green LI heparin tube (07/08/2024 9:50 PM EST) Extra Tube Hold for add-ons. 07/09/2024 12:01 AM EST [facility] Comment:Auto resulted. Blood Venous blood specimen / Unknown 07/08/2024 9:50 PM EST 07/08/2024 10:41 PM EST Wayne Donahue MD LAB BLOOD ORDERABLES Final Re sult Performing Organization Address City/[facility]/ZIP Co de Phone Number [facility] [address] [place] [address], [place] [phone] * Culture blood (07/08/2024 9:49 PM EST) [facility] Culture, Blood No growth at 5 days 07/13/2024 10:01 PM EST [facility] Blood Venous blood specimen / Unknown Venipuncture / Unknown 07/08/2024 9:49 PM EST 07/08/2024 9:54 PM EST us Aye HEDRICK LAB MICROBIOLOGY - GENERAL OR DERABLES Final Result [facility] [address] [place] [address], [place] [phone] * Lactate (07/08/2024 9:42 PM EST) Lactate 1.3 mmol/L 07/08/2024 10:30 PM EST [facility] Blood Venous blood specimen / Unknown Venipuncture / Unknown 07/08/2024 9:42 PM EST 07/08/2024 9:54 PM EST Aye HEDRICK LAB BLOOD ORDERABLES Final Re sult Performing Organization Address [facility]/ZIP Co de Phone Number [facility] [address] [place] [address], [place] [phone] * Culture blood (07/08/2024 9:37 PM EST) [facility] Culture, Blood No growth at 5 days 07/13/2024 10:01 PM EST [facility] Blood Venous blood specimen / Unknown Venipuncture / Unknown 07/08/2024 9:37 PM EST 07/08/2024 9:56 PM EST Aye HEDRICK LAB MICROBIOLOGY - GENERAL OR DERABLES Final Result Performing Organization Address [facility] Co de Phone Number [facility] [address] [place] [address], [place] [phone] * (ABNORMAL) POCT Glucose, blood (07/08/2024 8:46 PM EST) [facility] Glucose POCT 264(H) 70 - 100 mg/dL 07/08/2024 8:46 PM EST [facility] Blood Capillary blood specimen / Unknown 07/08/2024 8:46 PM EST 07/08/2024 8:47 PM EST Wayne Donahue MD LAB POINT OF CARE TE ST DOCKED DEVICE UNSOLICITED RESULTS Final Result Performing Organization Address City/[facility]/ZIP Co de Phone Number [facility] [address] [place] [address], [place] [phone] * (ABNORMAL) Basic metabolic panel (07/08/2024 8:30 PM EST) [facility] Sodium 130(L) 133 - 145 mmol/L LAB CHEMISTRY METHOD 07/08/2024 11:37 PM EST [facility] Potassium 4.0 3.5 - 5.5 mmol/L LAB CHEMISTRY METHOD 07/08/2024 11:37 PM [facility] Chloride 98 96 - 110 mmol/L LAB CHEMISTRY METHOD 07/08/2024 11:37 PM [facility] CO2 22 21 - 32 mmol/L LAB CHEMISTRY METHOD 07/08/2024 11:37 PM [facility] Anion Gap 10 3 - 11 LAB CHEMISTRY METHOD 07/08/2024 11:37 PM [facility] Glucose 261(H) 70 - 100 mg/dL LAB CHEMISTRY METHOD 07/08/2024 11:37 PM [facility] BUN 64(H) 5 - 25 mg/dL LAB CHEMISTRY METHOD 07/08/2024 11:37 PM [facility] Creatinine 4.32(H) 0.50 - 1.10 mg/dL LAB CHEMISTRY METHOD 07/08/2024 11:37 PM [facility] eGFR 10(L) >=60 mL/min/1. 73m2 LAB CHEMISTRY METHOD 07/08/2024 11:37 PM [facility] Comment:Calculation based on the??Chronic Kidney Disease Epidemiology Collaboration (CKD-EPI) equation refit??without adjustment for race. BUN/Creatinine Ratio 14.8 LAB CHEMISTRY METHOD 07/08/2024 11:37 PM [facility] Calcium 10.3 8.5 - 10.5 mg/dL LAB CHEMISTRY METHOD 07/08/2024 11:37 PM [facility] Blood Venous blood specimen / Unknown Venipuncture / Unknown 07/08/2024 8:30 PM EST 07/08/2024 8:37 PM EST us Aye HEDRICK LAB BLOOD ORDERABLES Final Re sult [facility] [address] [place] [address], * (ABNORMAL) Complete blood count (07/08/2024 8:30 PM EST) [facility] WBC 20.5(H) 4.8 - 10.8 K/mcL LAB HEMETOLOGY METHOD 07/08/2024 8:56 PM [facility] RBC 4.00 3.80 - 4.80 M/mcL LAB HEMETOLOGY METHOD 07/08/2024 8:56 PM [facility] Hemoglobin 9.2(L) 11.5 - 16.0 g/dL LAB HEMETOLOGY METHOD 07/08/2024 8:56 PM [facility] Hematocrit 30.0(L) 35.0 - 47.0 % LAB HEMETOLOGY METHOD 07/08/2024 8:56 PM [facility] MCV 75.8(L) 79.0 - 98.0 FL LAB HEMETOLOGY METHOD 07/08/2024 8:56 PM [facility] MCH 23.2(L) 27.0 - 32.0 pcg LAB HEMETOLOGY METHOD 07/08/2024 8:56 PM [facility] MCHC 30.7(L) 32.0 - 37.0 g/dL LAB HEMETOLOGY METHOD 07/08/2024 8:56 PM [facility] RDW 19.9(H) 11.0 - 15.0 % LAB HEMETOLOGY METHOD 07/08/2024 8:56 PM [facility] Platelets 332 130 - 400 K/mcL LAB HEMETOLOGY METHOD 07/08/2024 8:56 PM [facility] MPV 8.6 7.0 - 11.0 FL LAB HEMETOLOGY METHOD 07/08/2024 8:56 PM [facility] NRBC 0.0 <1.0 % LAB HEMETOLOGY METHOD 07/08/2024 8:56 PM [facility] NRBC Absolute 0.00 <0.10 K/mcL LAB HEMETOLOGY METHOD 07/08/2024 8:56 PM EST [facility] Blood Venous blood specimen / Unknown Venipuncture / Unknown 07/08/2024 8:30 PM EST 07/08/2024 8:37 PM EST us Aye HEDRICK LAB BLOOD ORDERABLES Final Re sult Performing Organization Address City/[facility]/ZIP Co de Phone Number [facility] [address] [place] [address], [place] [phone] * (ABNORMAL) Electrolyte panel (07/08/2024 8:30 PM EST) Sodium 130(L) 133 - 145 mmol/L LAB CHEMISTRY METHOD 07/08/2024 11:37 PM [facility] Potassium 4.0 3.5 - 5.5 mmol/L LAB CHEMISTRY METHOD 07/08/2024 11:37 PM [facility] Chloride 98 96 - 110 mmol/L LAB CHEMISTRY METHOD 07/08/2024 11:37 PM [facility] CO2 22 21 - 32 mmol/L LAB CHEMISTRY METHOD 07/08/2024 11:37 PM [facility] Anion Gap 10 3 - 11 LAB CHEMISTRY METHOD 07/08/2024 11:37 PM [facility] Blood Venous blood specimen / Unknown Venipuncture / Unknown 07/08/2024 8:30 PM EST 07/08/2024 8:37 PM EST us Aye HEDRICK LAB BLOOD ORDERABLES Final Re sult [facility] [address] [place] [address], [place] [phone] * Transfuse RBC (07/08/2024 6:45 PM EST) Raya HEDRICK BLOOD TRANSFUSION ORDE RABDIEGO Final Result * Transfuse RBC: 1 Units (07/08/2024 6:45 PM EST) Raya HEDRICK BLOOD TRANSFUSION ORDE RABLES Final Result * (ABNORMAL) POCT Glucose, blood (07/08/2024 6:19 PM EST) Pathologist [facility] Glucose POCT 276(H) 70 - 100 mg/dL 07/08/2024 6:19 PM EST [facility] Blood Capillary blood specimen / Unknown 07/08/2024 6:19 PM EST 07/08/2024 6:20 PM EST Wayne Donahue MD LAB POINT OF CARE TE ST DOCKED DEVICE UNSOLICITED RESULTS Final Result Performing Organization Address [facility]/ZIP Co de Phone Number [facility] [address] [place] [address], [place] [phone] * PATHOLOGIST REVIEW PROTEIN ELECTROPHORESIS (07/08/2024 5:52 PM EST) [facility] Pathologist Interpretation Reviewed by Rosenda Galeana MD 07/14/2024 9:21 AM EST [facility] Blood Venous blood specimen / Unknown Venipuncture / Unknown 07/08/2024 5:52 PM EST 07/08/2024 6:00 PM EST Aye HEDRICK LAB BLOOD ORDERABLES Final Re sult [facility] [address] [place] [address], [place] [phone] * Protein, total (07/08/2024 5:52 PM EST) [facility] Total Protein 6.4 6.0 - 8.0 g/dL LAB CHEMISTRY METHOD 07/08/2024 6:30 PM EST [facility] Blood Venous blood specimen / Unknown Venipuncture / Unknown 07/08/2024 5:52 PM EST 07/08/2024 6:00 PM EST us Aye HEDRICK LAB BLOOD ORDERABLES Final Re sult [facility] [address] [place] [address], * (ABNORMAL) Basic metabolic panel (07/08/2024 5:52 PM EST) Sodium 128(L) 133 - 145 mmol/L LAB CHEMISTRY METHOD 07/08/2024 6:50 PM [facility] Potassium 4.0 3.5 - 5.5 mmol/L LAB CHEMISTRY METHOD 07/08/2024 6:50 PM [facility] Chloride 96 96 - 110 mmol/L LAB CHEMISTRY METHOD 07/08/2024 6:50 PM [facility] CO2 25 21 - 32 mmol/L LAB CHEMISTRY METHOD 07/08/2024 6:50 PM [facility] Anion Gap 7 3 - 11 LAB CHEMISTRY METHOD 07/08/2024 6:50 PM [facility] Glucose 259(H) 70 - 100 mg/dL LAB CHEMISTRY METHOD 07/08/2024 6:50 PM [facility] BUN 67(H) 5 - 25 mg/dL LAB CHEMISTRY METHOD 07/08/2024 6:50 PM [facility] Creatinine 4.12(H) 0.50 - 1.10 mg/dL LAB CHEMISTRY METHOD 07/08/2024 6:50 PM [facility] eGFR 10(L) >=60 mL/min/1. 73m2 LAB CHEMISTRY METHOD 07/08/2024 6:50 PM [facility] Comment:Calculation based on the??Chronic Kidney Disease Epidemiology Collaboration (CKD-EPI) equation refit??without adjustment for race. BUN/Creatinine Ratio 16.3 LAB CHEMISTRY METHOD 07/08/2024 6:50 PM EST [facility] Calcium 10.8(H) 8.5 - 10.5 mg/dL LAB CHEMISTRY METHOD 07/08/2024 6:50 PM EST [facility] Blood Venous blood specimen / Unknown Venipuncture / Unknown 07/08/2024 5:52 PM EST 07/08/2024 6:00 PM EST Aye HEDRICK LAB BLOOD ORDERABLES Final Re sult Performing Organization Address [facility]/ZIP Co de Phone Number [facility] [address] [place] [address], [place] [phone] * (ABNORMAL) Serum albumin (07/08/2024 5:52 PM EST) Albumin 2.1(L) 3.2 - 5.0 g/dL LAB CHEMISTRY METHOD 07/08/2024 6:34 PM EST [facility] Blood Venous blood specimen / Unknown Venipuncture / Unknown 07/08/2024 5:52 PM EST 07/08/2024 6:00 PM EST Aye HEDRICK LAB BLOOD ORDERABLES Final Re sult Performing Organization Address City/[facility]/ZIP Co de Phone Number [facility] [address] [place] [address], [place] [phone] * (ABNORMAL) Electrolyte panel (07/08/2024 5:52 PM EST) Sodium 128(L) 133 - 145 mmol/L LAB CHEMISTRY METHOD 07/08/2024 6:34 PM EST [facility] Potassium 4.0 3.5 - 5.5 mmol/L LAB CHEMISTRY METHOD 07/08/2024 6:34 PM EST [facility] Chloride 96 96 - 110 mmol/L LAB CHEMISTRY METHOD 07/08/2024 6:34 PM [facility] CO2 25 21 - 32 mmol/L LAB CHEMISTRY METHOD 07/08/2024 6:34 PM [facility] Anion Gap 7 3 - 11 LAB CHEMISTRY METHOD 07/08/2024 6:34 PM [facility] Blood Venous blood specimen / Unknown Venipuncture / Unknown 07/08/2024 5:52 PM EST 07/08/2024 6:00 PM EST us Aye HEDRICK LAB BLOOD ORDERABLES Final Re sult [facility] [address] [place] [address], [place] [phone] * (ABNORMAL) Protein electrophoresis, serum (07/08/2024 5:52 PM EST) Total Protein 6.4 6.0 - 8.0 g/dL LAB CHEMISTRY METHOD 07/14/2024 9:21 AM [facility] Albumin, Serum 2.2(L) 2.9 - 4.1 g/dL LAB CHEMISTRY METHOD 07/14/2024 9:21 AM [facility] Alpha 1 Globulin (g/dL) 0.6(H) 0.1 - 0.5 g/dL LAB CHEMISTRY METHOD 07/14/2024 9:21 AM [facility] Alpha 2 Globulin (g/dL) 1.2 0.7 - 1.5 g/dL LAB CHEMISTRY METHOD 07/14/2024 9:21 AM [facility] Beta (g/dL) 1.0 0.7 - 1.5 g/dL LAB CHEMISTRY METHOD 07/14/2024 9:21 AM [facility] Gamma Globulin (g/dL) 1.5 0.7 - 1.9 g/dL LAB CHEMISTRY METHOD 07/14/2024 9:21 AM [facility] SPEP Interpretation Hypoalbuminem ia, suggestive of malnutrition, decreased hepatic synthesis or renal/GI loss Elevated alpha-1 fraction, suggestive of acute or or chronic inflammation. LAB CHEMISTRY METHOD 07/14/2024 9:21 AM EST [facility] Blood Venous blood specimen / Unknown Venipuncture / Unknown 07/08/2024 5:52 PM EST 07/08/2024 6:00 PM EST us Aye HEDRICK LAB BLOOD ORDERABLES Final Re sult [facility] [address] [place] [address], [place] [phone] * US Retroperitoneal Complete (07/08/2024 4:30 PM EST) Anatomical Region Laterality Modality Body Ultrasound 07/10/2024 2:0 7 PM EST Impressions 07/10/2024 2:08 PM EST Normal appearance of the kidneys. -------- FINAL REPORT -------- Dictated By: Priom Dee Dictated Date: 07/10/2024 14:07 ET Assigned Physician: Primo Dee Reviewed and Electronically Signed By: Primo Dee Signed Date: 07/10/2024 14:08 ET Workstation ID: [id number] Transcribed By: Self Edit Transcribed Date: 07/10/2024 [...] Signed Date: 07/10/2024 14:08 ET Workstation ID: [id number] Transcribed By: Self Edit Transcribed Date: 07/10/2024 14:07 ET us Aye HEDRICK IMG US PROCEDURES Final Resul t * Respiratory virus panel molecular study (07/08/2024 2:59 PM EST) Adenovirus Detection by PCR Not Detected Not Detected LAB MICROBIOLOGY METHOD 07/08/2024 4:18 PM [facility] Influenza A PCR Not Detected Not Detected LAB MICROBIOLOGY METHOD 07/08/2024 4:18 PM [facility] Influenza B PCR Not Detected Not Detected LAB MICROBIOLOGY METHOD 07/08/2024 4:18 PM [facility] Coronavirus 229E Not Detected Not Detected LAB MICROBIOLOGY METHOD 07/08/2024 4:18 PM [facility] Coronavirus HKU1 Not Detected Not Detected LAB MICROBIOLOGY METHOD 07/08/2024 4:18 PM [facility] Coronavirus OC43 Not Detected Not Detected LAB MICROBIOLOGY METHOD 07/08/2024 4:18 PM [facility] Coronavirus NL63 Not Detected Not Detected LAB MICROBIOLOGY METHOD 07/08/2024 4:18 PM [facility] Parainfluenza Virus 1 Not Detected Not Detected LAB MICROBIOLOGY METHOD 07/08/2024 4:18 PM [facility] Parainfluenza Virus 2 Not Detected Not Detected LAB MICROBIOLOGY METHOD 07/08/2024 4:18 PM [facility] Parainfluenza Virus 3 Not Detected Not Detected LAB MICROBIOLOGY METHOD 07/08/2024 4:18 PM [facility] Parainfluenza Virus 4 Not Detected Not Detected LAB MICROBIOLOGY METHOD 07/08/2024 4:18 PM [facility] RSV PCR Not Detected Not Detected LAB MICROBIOLOGY METHOD 07/08/2024 4:18 PM [facility] Human Metapneumovirus A and B Not Detected Not Detected LAB MICROBIOLOGY METHOD 07/08/2024 4:18 PM [facility] Rhinovirus/Entero virus Not Detected Not Detected LAB MICROBIOLOGY METHOD 07/08/2024 4:18 PM [facility] Bordetella pertussis Not Detected Not Detected LAB MICROBIOLOGY METHOD 07/08/2024 4:18 PM [facility] Bordetella parapertussis Not Detected Not Detected LAB MICROBIOLOGY METHOD 07/08/2024 4:18 PM [facility] Mycoplasma pneumo by PCR Not Detected Not Detected LAB MICROBIOLOGY METHOD 07/08/2024 4:18 PM [facility] Chlamydia pneumoniae Not Detected Not Detected LAB MICROBIOLOGY METHOD 07/08/2024 4:18 PM [facility] SARS COV-2 Not Detected Not Detected LAB MICROBIOLOGY METHOD 07/08/2024 4:18 PM [facility] Swab Both anterior nares / Unknown Non-blood Collection / Unknown 07/08/2024 2:59 PM EST 07/08/2024 3:15 PM EST [facility] - 07/08/2024 4:18 PM EST Testing was performed using the [employer] Respiratory Pathogen PCR Assay. All results must [...] MICROBIOLOGY - GENERAL OR DERABLES Final Result [facility] ([facility] [address] [place] [address], * XR Chest 2 Views (07/08/2024 2:01 PM EST) Anatomical Region Laterality Modality Body Radiographic Jennifer ging 07/08/2024 2:06 PM EST Impressions 07/08/2024 2:07 PM EST No acute findings. -------- FINAL REPORT -------- Dictated By: Henrique Bray Dictated Date: 07/08/2024 14:06 ET Assigned Physician: Henrique Bray Reviewed and Electronically Signed By: Henrique Bray Signed Date: 07/08/2024 14:07 ET Workstation ID: [id number] Transcribed By: Self Edit Transcribed Date: 07/08/2024 [...] Signed Date: 07/08/2024 14:07 ET Workstation ID: [id number] Transcribed By: Self Edit Transcribed Date: 07/08/2024 14:06 ET us Jj Wolfe MD IMG XR PROCEDURES Final R esult * Type and screen (07/08/2024 1:18 PM EST) [facility] ABO Group O 07/08/2024 2:42 PM EST [facility] Rh Type Positive 07/08/2024 2:42 PM EST [facility] Antibody Screen Negative 07/08/2024 2:42 PM EST [facility] Blood Venous blood specimen / Unknown Venipuncture / Unknown 07/08/2024 1:18 PM EST 07/08/2024 1:34 PM EST Raya HEDRICK LAB BLOOD BANK TEST OR DERABLES Final Result [facility] [address] [place] [address], * (ABNORMAL) Troponin I high sensitivity (07/08/2024 1:18 PM EST) [facility] High Sensitivity Troponin I 81(H) <=54 ng/L LAB CHEMISTRY METHOD 07/08/2024 2:17 PM EST [facility] Blood Venous blood specimen / Unknown Venipuncture / Unknown 07/08/2024 1:18 PM EST 07/08/2024 1:34 PM EST Narrative [facility] - 07/08/2024 2:17 PM EST High levels of biotin in samples may falsely decrease hsTroponin values. ??Use caution when interpreting hsTroponin results in patients taking biotin who exhibit renal impairment (eGFR <60) or in patients taking more than 20 mg/day of biotin. Jj Wolfe MD LAB BLOOD ORDERABLES [place] l Result Performing Organization Address [facility]/ZIP Co de Phone Number [facility] [address] [place] [address], * Prepare RBC: 1 Units (07/08/2024 1:17 PM EST) Product Code [id number] 07/08/2024 4:13 PM [facility] Unit Number [id number] 07/08/19 4:13 PM [facility] Crossmatch Compatible 07/08/2024 2:53 PM [facility] Dispense Status Transfused 07/08/2024 4:13 PM [facility] Unit ABO Rh OPOS 07/08/2024 4:13 PM [facility] Unit Expiration Date Time [id number] 07/08/2024 4:13 PM [facility] Unit Blood Type 5100 07/08/2024 4:13 PM [facility] Blood Venous blood specimen / Unknown 07/08/2024 1:17 PM EST 06/17/2024 10:17 AM EST Raya HEDRICK BLOOD BANK PRODUCT ORD ERABLES Final Result Performing Organization Address [facility]/ZIP Co de Phone Number [facility] [address] [place] [address], [place] [phone] * Culture urine (07/08/2024 12:59 PM EST) Culture, Urine No growth 07/09/2024 10:44 AM [facility] Urine Urine specimen obtained by clean catch procedure / Unknown Non-blood Collection / Unknown 07/08/2024 12:59 PM EST 07/08/2024 1:21 PM EST Jj Wolfe MD LAB MICROBIOLOGY - GENERA L ORDERABLES Final Result Performing Organization Address [facility]/ZIP Co de Phone Number [facility] [address] [place] [address], [place] [phone] * Robertson urine culture tube (07/08/2024 12:59 PM EST) [facility] Extra Tube Hold for add-ons. 07/08/2024 3:02 PM [facility] Comment:Auto resulted. Urine Urine specimen obtained by clean catch procedure / Unknown Non-blood Collection / Unknown 07/08/2024 12:59 PM EST 07/08/2024 1:11 PM EST Jj Wolfe MD LAB URINE ORDERABLES America l Result Performing Organization Address [facility] Co de Phone Number [facility] [address] [place] [address], [place] [phone] * (ABNORMAL) Urinalysis with reflex microscopic and culture (07/08/2024 12:59 PM EST) [facility] Specific [place] Urine 1.020 1.003 - 1.030 LAB URINALYSIS - AUTOMATED METHOD 07/08/2024 1:21 PM [facility] pH, Urine 5.5 5.0 - 8.0 pH LAB URINALYSIS - AUTOMATED METHOD 07/08/2024 1:21 PM [facility] Leukocytes, Urine Negative Negative LAB URINALYSIS - AUTOMATED METHOD 07/08/2024 1:21 PM [facility] Nitrite, Urine Negative Negative LAB URINALYSIS - AUTOMATED METHOD 07/08/2024 1:21 PM [facility] Protein, Urine 100(A) <=Trace mg/dL LAB URINALYSIS - AUTOMATED METHOD 07/08/2024 1:21 PM [facility] Glucose, Urine 500(A) Negative mg/dL LAB URINALYSIS - AUTOMATED METHOD 07/08/2024 1:21 PM [facility] Ketones, Urine Negative Negative mg/dL LAB URINALYSIS - AUTOMATED METHOD 07/08/2024 1:21 PM [facility] Urobilinogen, Urine 0.2 0.2 - 1.0 mg/dL LAB URINALYSIS - AUTOMATED METHOD 07/08/2024 1:21 PM [facility] Bilirubin, Urine Negative Negative LAB URINALYSIS - AUTOMATED METHOD 07/08/2024 1:21 PM [facility] Blood, Urine Large(A) Negative LAB URINALYSIS - AUTOMATED METHOD 07/08/2024 1:21 PM [facility] RBC, Urine 21.6(H) 0 - 4 /HPF LAB URINALYSIS - AUTOMATED METHOD 07/08/2024 1:21 PM [facility] WBC, Urine 7.3(H) 0 - 4 /HPF LAB URINALYSIS - AUTOMATED METHOD 07/08/2024 1:21 PM [facility] Squamous Epithelial, Urine 30 0 - 60 /LPF LAB URINALYSIS - AUTOMATED METHOD 07/08/2024 1:21 PM [facility] Bacteria, Urine Negative Negative /HPF LAB URINALYSIS - AUTOMATED METHOD 07/08/2024 1:21 PM [facility] Hyaline Casts, Urine 1.7 0 - 3 /LPF LAB URINALYSIS - AUTOMATED METHOD 07/08/2024 1:21 PM [facility] Urine Urine specimen obtained by clean catch procedure / Unknown Non-blood Collection / Unknown 07/08/2024 12:59 PM EST 07/08/2024 1:11 PM EST us Jj Wolfe MD LAB URINE ORDERABLES [place] angelica Result [facility] [address] [place] [address], [place] [phone] * CT Head wo Contrast (07/08/2024 12:11 [...] Signed Date: 07/08/2024 12:23 ET Workstation ID: [id number] Transcribed By: Self Edit Transcribed Date: 07/08/2024 [...] Signed Date: 07/08/2024 12:23 ET Workstation ID: [id number] Transcribed By: Self Edit Transcribed Date: 07/08/2024 12:22 ET Raya HEDRICK IMAnibal CT PROCEDURES America l Result * CT [...] Signed Date: 07/08/2024 12:27 ET Workstation ID: [id number] Transcribed By: Self Edit Transcribed Date: 07/08/2024 [...] Signed Date: 07/08/2024 12:27 ET Workstation ID: [id number] Transcribed By: Self Edit Transcribed Date: 07/08/2024 12:24 ET Raya HEDRICK IMAnibal CT PROCEDURES America l Result * (ABNORMAL) Creatine kinase and CKMB (07/08/2024 11:10 AM EST) Total CK 649(H) 22 - 269 unit/L LAB CHEMISTRY METHOD 07/08/2024 3:51 PM [facility] Comment:Hemolysis present CK-MB 13.1(H) 1.0 - 3.6 ng/mL LAB CHEMISTRY METHOD 07/08/2024 3:51 PM [facility] CK-MB Index 0.0 0.0 - 5.0 LAB CHEMISTRY METHOD 07/08/2024 3:51 PM [facility] Blood Venous blood specimen / Unknown Venipuncture / Unknown 07/08/2024 11:10 AM EST 07/08/2024 11:42 AM EST us Wayne Donahue MD LAB BLOOD ORDERABLES Final Re sult Performing Organization Address [facility]/ZIP Co de Phone Number [facility] [address] [place] [address], [place] [phone] * (ABNORMAL) Iron and TIBC (07/08/2024 11:10 AM EST) Iron 20(L) 40 - 150 mcg/dL LAB CHEMISTRY METHOD 07/08/2024 3:44 PM EST [facility] Comment:Hemolysis present TIBC 186(L) 250 - 450 mcg/dL LAB CHEMISTRY METHOD 07/08/2024 3:44 PM EST [facility] Iron Saturation 11(L) 15 - 50 % LAB CHEMISTRY METHOD 07/08/2024 3:44 PM EST [facility] Blood Venous blood specimen / Unknown Venipuncture / Unknown 07/08/2024 11:10 AM EST 07/08/2024 11:42 AM EST us Wayne Donahue MD LAB BLOOD ORDERABLES Final Re sult Performing Organization Address [facility] de Phone Number [facility] [address] [place] [address], [place] [phone] * (ABNORMAL) Ferritin (07/08/2024 11:10 AM EST) Ferritin 708(H) 8 - 252 ng/mL LAB CHEMISTRY METHOD 07/08/2024 3:51 PM EST [facility] Blood Venous blood specimen / Unknown Venipuncture / Unknown 07/08/2024 11:10 AM EST 07/08/2024 11:42 AM EST us Wayne Donahue MD LAB BLOOD ORDERABLES Final Re sult Performing Organization Address City/[facility] Co de Phone Number [facility] [address] [place] [address], [place] [phone] * (ABNORMAL) Reticulocyte count (07/08/2024 11:10 AM EST) Retic Ct Abs 0.050 0.030 - 0.090 M/mcL LAB HEMETOLOGY METHOD 07/08/2024 2:52 PM EST [facility] Retic Ct Pct 1.4 0.7 - 1.7 % LAB HEMETOLOGY METHOD 07/08/2024 2:52 PM EST [facility] Immature Retic Fract 24.5(H) 2.3 - 15.9 % LAB HEMETOLOGY METHOD 07/08/2024 2:52 PM EST [facility] Reticulocyte Hemoglobin 22.5(L) >29.0 pcg LAB HEMETOLOGY METHOD 07/08/2024 2:52 PM EST [facility] Blood Venous blood specimen / Unknown Venipuncture / Unknown 07/08/2024 11:10 AM EST 07/08/2024 11:42 AM EST us Wayne Donahue MD LAB BLOOD ORDERABLES Final Re sult Performing Organization Address [facility] Co de Phone Number [facility] [address] [place] [address], [place] [phone] * (ABNORMAL) Haptoglobin (07/08/2024 11:10 AM EST) Haptoglobin 570(H) 16 - 200 mg/dL LAB CHEMISTRY METHOD 07/08/2024 3:44 PM EST [facility] Blood Venous blood specimen / Unknown Venipuncture / Unknown 07/08/2024 11:10 AM EST 07/08/2024 11:42 AM EST us Wayne Donahue MD LAB BLOOD ORDERABLES Final Re sult Performing Organization Address [facility]/ZIP Co de Phone Number [facility] [address] [place] [address], [place] [phone] * (ABNORMAL) Folate (07/08/2024 11:10 AM EST) Pathologist [facility] Folate >20.0(H) 2.8 - 17.0 ng/ml LAB CHEMISTRY METHOD 07/08/2024 3:51 PM EST [facility] Blood Venous blood specimen / Unknown Venipuncture / Unknown 07/08/2024 11:10 AM EST 07/08/2024 11:42 AM EST us Wayne Donahue MD LAB BLOOD ORDERABLES Final Re sult Performing Organization Address [facility]/ZIP Co de Phone Number [facility] [address] [place] [address], * Vitamin B12 (07/08/2024 11:10 AM EST) Pathologist [facility] Vitamin B-12 384 250 - 900 pcg/mL LAB CHEMISTRY METHOD 07/08/2024 3:51 PM EST [facility] Blood Venous blood specimen / Unknown Venipuncture / Unknown 07/08/2024 11:10 AM EST 07/08/2024 11:42 AM EST us Wayne Donhaue MD LAB BLOOD ORDERABLES Final Re sult Performing Organization Address City/[facility]/ZIP Co de Phone Number [facility] [address] [place] [address], [place] [phone] * Cortisol (07/08/2024 11:10 AM EST) Cortisol 58.1 mcg/dL LAB CHEMISTRY METHOD 07/08/2024 3:38 PM EST [facility] Blood Venous blood specimen / Unknown Venipuncture / Unknown 07/08/2024 11:10 AM EST 07/08/2024 11:42 AM EST Narrative [facility] - 07/08/2024 3:38 PM EST CORTISOL REFERENCE RANGE ?? 8 AM SPEC: ??5.0-23.0 mcg/dL ?? 4 PM SPEC: ??3.0-16.0 mcg/dL ?? 8 PM SPEC: ??<5.0 mcg/dL us Wayne Donahue MD LAB BLOOD ORDERABLES Final Re sult Performing Organization Address [facility] de Phone Number [facility] [address] [place] [address], [place] [phone] * (ABNORMAL) Thyroid stimulating hormone (07/08/2024 11:10 AM EST) TSH 4.50(H) 0.40 - 4.00 mcIU/mL LAB CHEMISTRY METHOD 07/08/2024 3:31 PM EST [facility] Blood Venous blood specimen / Unknown Venipuncture / Unknown 07/08/2024 11:10 AM EST 07/08/2024 11:42 AM EST us Wayne Donahue MD LAB BLOOD ORDERABLES Final Re sult Performing Organization Address [facility] de Phone Number [facility] [address] [place] [address], [place] [phone] * Uric acid (07/08/2024 11:10 AM EST) Uric Acid 7.2 3.1 - 7.8 mg/dL LAB CHEMISTRY METHOD 07/08/2024 3:44 PM EST [facility] Blood Venous blood specimen / Unknown Venipuncture / Unknown 07/08/2024 11:10 AM EST 07/08/2024 11:42 AM EST us Wayne Donahue MD LAB BLOOD ORDERABLES Final Re sult Performing Organization Address City/[facility]/ZIP Co de Phone Number [facility] [address] [place] [address], [place] [phone] * (ABNORMAL) Osmolality (07/08/2024 11:10 AM EST) [facility] Osmolality Iván 307(H) 280 - 300 mOsm/kg LAB CHEMISTRY METHOD 07/08/2024 6:51 PM EST [facility] Blood Venous blood specimen / Unknown Venipuncture / Unknown 07/08/2024 11:10 AM EST 07/08/2024 11:42 AM EST us Wayne Donahue MD LAB BLOOD ORDERABLES Final Re sult Performing Organization Address [facility] Co de Phone Number [facility] [address] [place] [address], [place] [phone] * (ABNORMAL) Parathyroid hormone intact (07/08/2024 11:10 AM EST) [facility] PTH 6.5(L) 18.5 - 88.0 pcg/mL LAB CHEMISTRY METHOD 07/08/2024 3:31 PM EST [facility] Blood Venous blood specimen / Unknown Venipuncture / Unknown 07/08/2024 11:10 AM EST 07/08/2024 11:42 AM EST us Wayne Donahue MD LAB BLOOD ORDERABLES Final Re sult Performing Organization Address City/[facility]/ZIP Co de Phone Number [facility] [address] [place] [address], [place] [phone] * (ABNORMAL) CBC auto differential (07/08/2024 11:10 AM EST) [facility] WBC 18.9(H) 4.8 - 10.8 K/[facility] LAB HEMETOLOGY METHOD 07/08/2024 11:51 AM EST [facility] RBC 3.30(L) 3.80 - 4.80 M/mcL LAB HEMETOLOGY METHOD 07/08/2024 11:51 AM [facility] Hemoglobin 7.3(L) 11.5 - 16.0 g/dL LAB HEMETOLOGY METHOD 07/08/2024 11:51 AM [facility] Hematocrit 23.7(L) 35.0 - 47.0 % LAB HEMETOLOGY METHOD 07/08/2024 11:51 AM [facility] MCV 72.3(L) 79.0 - 98.0 FL LAB HEMETOLOGY METHOD 07/08/2024 11:51 AM [facility] MCH 22.3(L) 27.0 - 32.0 pcg LAB HEMETOLOGY METHOD 07/08/2024 11:51 AM [facility] MCHC 30.8(L) 32.0 - 37.0 g/dL LAB HEMETOLOGY METHOD 07/08/2024 11:51 AM [facility] RDW 16.4(H) 11.0 - 15.0 % LAB HEMETOLOGY METHOD 07/08/2024 11:51 AM [facility] Platelets 408(H) 130 - 400 K/mcL LAB HEMETOLOGY METHOD 07/08/2024 11:51 AM [facility] MPV 8.9 7.0 - 11.0 FL LAB HEMETOLOGY METHOD 07/08/2024 11:51 AM [facility] NRBC 0.0 <1.0 % LAB HEMETOLOGY METHOD 07/08/2024 11:51 AM [facility] NRBC Absolute 0.00 <0.10 K/mcL LAB HEMETOLOGY METHOD 07/08/2024 11:51 AM [facility] Neutrophils Relative 89.5 % LAB HEMETOLOGY METHOD 07/08/2024 11:51 AM [facility] Lymphocytes Relative 2.4 % LAB HEMETOLOGY METHOD 07/08/2024 11:51 AM [facility] Monocytes Relative 7.0 % LAB HEMETOLOGY METHOD 07/08/2024 11:51 AM [facility] Eosinophils Relative 0.2 % LAB HEMETOLOGY METHOD 07/08/2024 11:51 AM [facility] Basophils Relative 0.2 % LAB HEMETOLOGY METHOD 07/08/2024 11:51 AM [facility] Immature Granulocytes Relative 0.7 % LAB HEMETOLOGY METHOD 07/08/2024 11:51 AM [facility] Neutrophils Absolute 16.86(H) 1.50 - 7.00 K/mcL LAB HEMETOLOGY METHOD 07/08/2024 11:51 AM [facility] Lymphocytes Absolute 0.46(L) 1.00 - 5.00 K/mcL LAB HEMETOLOGY METHOD 07/08/2024 11:51 AM [facility] Monocytes Absolute 1.32(H) 0.20 - 1.00 K/mcL LAB HEMETOLOGY METHOD 07/08/2024 11:51 AM [facility] Eosinophils Absolute 0.04 0.00 - 0.50 K/mcL LAB HEMETOLOGY METHOD 07/08/2024 11:51 AM [facility] Basophils Absolute 0.04 0.00 - 0.20 K/mcL LAB HEMETOLOGY METHOD 07/08/2024 11:51 AM [facility] Immature Granulocytes Absolute 0.13(H) 0.00 - 0.03 K/mcL LAB HEMETOLOGY METHOD 07/08/2024 11:51 AM [facility] Blood Venous blood specimen / Unknown Venipuncture / Unknown 07/08/2024 11:10 AM EST 07/08/2024 11:42 AM EST us Jj Wolfe MD LAB BLOOD ORDERABLES [place] l Result Performing Organization Address [facility]/ZIP Co de Phone Number [facility] [address] [place] [address], * B-type natriuretic peptide (07/08/2024 11:10 AM EST) Pathologist [facility] BNP 86 <=100 pcg/mL LAB CHEMISTRY METHOD 07/08/2024 12:26 PM EST [facility] Blood Venous blood specimen / Unknown Venipuncture / Unknown 07/08/2024 11:10 AM EST 07/08/2024 11:42 AM EST Jj Wolfe MD LAB BLOOD ORDERABLES [place] l Result Performing Organization Address [facility] Co de Phone Number [facility] [address] [place] [address], * Magnesium (07/08/2024 11:10 AM EST) [facility] Magnesium 2.1 1.9 - 2.6 mg/dL LAB CHEMISTRY METHOD 07/08/2024 12:54 PM EST [facility] Comment:Hemolysis present Blood Venous blood specimen / Unknown Venipuncture / Unknown 07/08/2024 11:10 AM EST 07/08/2024 11:42 AM EST Jj Wolfe MD LAB BLOOD ORDERABLES [place] l Result Performing Organization Address [facility]/ZIP Co de Phone Number [facility] [address] [place] [address], * (ABNORMAL) Lipase (07/08/2024 11:10 AM EST) [facility] Lipase <10(L) 13 - 75 unit/L LAB CHEMISTRY METHOD 07/08/2024 12:54 PM EST [facility] Blood Venous blood specimen / Unknown Venipuncture / Unknown 07/08/2024 11:10 AM EST 07/08/2024 11:42 AM EST Jj Wolfe MD LAB BLOOD ORDERABLES [place] angelica Result [facility] [address] [place] [address], [place] [phone] * (ABNORMAL) Comprehensive metabolic panel (07/08/2024 11:10 AM EST) Sodium 126(L) 133 - 145 mmol/L LAB CHEMISTRY METHOD 07/08/2024 12:54 PM [facility] Potassium 4.2 3.5 - 5.5 mmol/L LAB CHEMISTRY METHOD 07/08/2024 12:54 PM [facility] Comment:Hemolysis present Chloride 93(L) 96 - 110 mmol/L LAB CHEMISTRY METHOD 07/08/2024 12:54 PM [facility] CO2 21 21 - 32 mmol/L LAB CHEMISTRY METHOD 07/08/2024 12:54 PM [facility] Anion Gap 12(H) 3 - 11 LAB CHEMISTRY METHOD 07/08/2024 12:54 PM [facility] Glucose 265(H) 70 - 100 mg/dL LAB CHEMISTRY METHOD 07/08/2024 12:54 PM [facility] BUN 59(H) 5 - 25 mg/dL LAB CHEMISTRY METHOD 07/08/2024 12:54 PM [facility] Comment:Results verified by repeat testing Creatinine 4.10(H) 0.50 - 1.10 mg/dL LAB CHEMISTRY METHOD 07/08/2024 12:54 PM [facility] Comment:Results verified by repeat testing eGFR 10(L) >=60 mL/min/1. 73m2 LAB CHEMISTRY METHOD 07/08/2024 12:54 PM [facility] Comment:Calculation based on the??Chronic Kidney Disease Epidemiology Collaboration (CKD-EPI) equation refit??without adjustment for race. BUN/Creatinine Ratio 14.4 LAB CHEMISTRY METHOD 07/08/2024 12:54 PM [facility] Calcium 10.6(H) 8.5 - 10.5 mg/dL LAB CHEMISTRY METHOD 07/08/2024 12:54 PM [facility] AST (SGOT) 57(H) 10 - 42 unit/L LAB CHEMISTRY METHOD 07/08/2024 12:54 PM [facility] Comment:Hemolysis present ALT (SGPT) 39 10 - 60 unit/L LAB CHEMISTRY METHOD 07/08/2024 12:54 PM [facility] Alkaline Phosphatase 149(H) 42 - 121 unit/L LAB CHEMISTRY METHOD 07/08/2024 12:54 PM [facility] Total Protein 6.3 6.0 - 8.0 g/dL LAB CHEMISTRY METHOD 07/08/2024 12:54 PM [facility] Albumin 2.1(L) 3.2 - 5.0 g/dL LAB CHEMISTRY METHOD 07/08/2024 12:54 PM [facility] Total Bilirubin 0.4 0.0 - 1.4 mg/dL LAB CHEMISTRY METHOD 07/08/2024 12:54 PM [facility] Blood Venous blood specimen / Unknown Venipuncture / Unknown 07/08/2024 11:10 AM EST 07/08/2024 11:42 AM EST us Jj Wolfe MD LAB BLOOD ORDERABLES [place] l Result [facility] [address] [place] [address], * (ABNORMAL) Troponin I high sensitivity (07/08/2024 11:10 AM EST) High Sensitivity Troponin I 80(H) <=54 ng/L LAB CHEMISTRY METHOD 07/08/2024 12:20 PM EST [facility] Blood Venous blood specimen / Unknown Venipuncture / Unknown 07/08/2024 11:10 AM EST 07/08/2024 11:42 AM EST Narrative [facility] - 07/08/2024 12:20 PM EST High levels of biotin in samples may falsely decrease hsTroponin values. ??Use caution when interpreting hsTroponin results in patients taking biotin who exhibit renal impairment (eGFR <60) or in patients taking more than 20 mg/day of biotin. Jj Wolfe MD LAB BLOOD ORDERABLES [place] l Result [facility] [address] [place] [address], [place] [phone] * ECG 12 lead (07/08/2024 10:46 AM EST) Ventricular Rate ECG 94 BPM GEMUSE Atrial Rate 94 BPM GEMUSE P-R Interval 196 ms GEMUSE QRS Duration 118 ms GEMUSE Q-T Interval 354 ms GEMUSE QTc 442 ms GEMUSE P Wave [place] 79 degrees GEMUSE R [place] 15 degrees GEMUSE T [place] 4 degrees GEMUSE ECG Interpretation Sinus rhythm [...] Other diseases of lung, not elsewhere classified Pulmonary nodule Other diseases of lung, not [...] Soco 07/28/24 at 1140, For 1 dose albuterol 2.5 mg /3 mL (0.083 %) nebulizer solution 2.5 mg 2.5 mg, nebulization, Every 10 min PRN, shortness of breath, Starting on Soco 07/28/24 at 1140, For 2 doses, -May repeat once if symptoms unresolved -Administer with 8L of oxygen apixaban (ELIQUIS) tablet 5 mg 5 mg, [...] First dose on Soco 07/21/24 at 2100 Given 08/04/2024 9:01 PM EST [...] -IV push over at least 2 minutes Glucagon HCl (rDNA) injection 1 mg 1 mg, intramuscular, Once as needed, low blood sugar, severe hypoglycemia, Starting on Thu07/08/24 at 1649, For 1 dose hydrALAZINE (APRESOLINE) injection 10 mg 10 mg, intravenous, Every 6 hours PRN, systolic BP greater than:, SBP>160, Starting on Thu07/09/24 at 1504 hydrocortisone sod succ (PF) (SOLU-CORTEF) [...] 10 Units Ri ght Lower Abdomen insulin lispro [...] ft Upper Arm (Back) insulin lispro injection 3 Units 3 Units, subcutaneous, 3 times daily before meals, First dose (after last modification) on Thu07/18/24 at 0730, Mealtime Insulin - Administer with meal --- [...] 3 Units Le ft Upper Arm (Back) naloxone (NARCAN) injection 0.04 mg 0.04 mg, [...] Given 07/19/2024 12:11 PM EST 5 mg pantoprazole (PROTONIX) EC tablet 40 mg 40 [...] Given 08/04/2024 11:22 AM EST 2 drops predniSONE (DELTASONE) tablet 60 mg 60 mg, oral, Daily, First dose on Thu07/24/24 at 0900 Given 08/06/2024 9:30 AM EST 60 mg Given 08/04/2024 8:52 AM EST 60 mg Given 08/02/2024 8:41 AM EST 60 mg sodium chloride 0.9 % bolus 500 mL [...] daily, First dose on Thu07/23/24 at 2100 Given 08/06/2024 9:30 AM EST 10 mL Given 08/05/2024 9:26 PM EST 10 mL Given 08/04/2024 9:09 PM EST 10 mL sodium chloride 0.9 % flush 10 mL 10 mL, intravenous, As needed, line care, Starting on 07/23/24 at 1617 Given 07/25/2024 9:37 PM EST 10 mL sodium chloride 0.9 % infusion 42 mL/hr, [...] 100 mg, oral, Daily, First dose on 07/18/24 at [...] Treatment 0930 (Given - Provider: Jacquelin Davidson, RN) atorvastatin (LIPITOR) tablet 10 mg 10 mg, oral, Nightly, First dose on 07/09/24 at 2100 2053 (Given - Provider: María Hawk RN) 1145 (AUG Hold - Provider: Automatic Transfer Provider - Reason: Patient not available)1424 (MAR Unhold - Provider: Automatic Transfer Provider)2125 (Given - Provider: Katina Machuca, ILIR) B complex-vitamin C-folic acid (NEPHRO-SAVITA) tablet 1 tablet 1 tablet (1 each), oral, Daily, First dose on Mon 25 at 1700 0853 (Given - Provider: Jolene Cardona, ILIR) 0828 (Not Given - Provider: Jacquelin Davidson RN - Reason: Patient not available)1145 (AUG Hold - Provider: Automatic Transfer Provider - Reason: Patient not available)1424 ([facility] Unhold - Provider: Automatic Transfer Provider) 0930 (Given - Provider: Jacquelin Davidson RN) docusate sodium (COLACE) capsule 100 mg 100 mg, oral, 2 times daily, First dose on Soco 07/21/24 at 2100 0853 (Given - Provider: Jolene Cardona, ILIR)2101 (Given - Provider: María Hawk RN) 0828 (Not Given - Provider: Jacquelin Davidson RN - Reason: Patient not available)1145 ([facility] Hold - Provider: Automatic Transfer Provider - Reason: Patient not available)1424 ([facility] Unhold - Provider: Automatic Transfer Provider)212 (Not Given - Provider: Katina Machuca RN [...] (Given - Provider: María Hawk RN) 1145 ([facility] Hold - Provider: Automatic Transfer Provider - Reason: Patient not available)1424 ([facility] Unhold - Provider: Automatic Transfer Provider)212 (Given - Provider: Katina Machuca, ILIR) insulin lispro injection 1-6 Units 1-6 Units, [...] BG 116)1124 (Not Given - Provider: Jolene Cardona RN - Reason: Order parameters not met - Comment: BG 130)1745 (Given - Provider: Jolene Cardona RN)2102 (Given - Provider: María Hawk RN) 0720 (Not Given - Provider: Jacquelin Davidson RN - Reason: Patient not available)1056 (Not Given - Provider: Jacquelin Davidson RN - Reason: Patient not available)1145 ([facility] Hold - Provider: Automatic Transfer Provider - Reason: Patient not available)1424 ([facility] Unhold - Provider: Automatic Transfer Provider)1647 (Given - Provider: Jacquelin Davidson RN)2124 (Given - Provider: Katina Machuca RN) 0732 (Not Given - Provider: Jacquelin Davidson RN - Reason: Order parameters not met)1128 (Given - Provider: Jacquelin Davidson RN) insulin lispro injection 3 Units 3 Units, [...] Lindsay Lagos RN) 0651 (Given - Provider: María Hawk RN)1145 ([facility] Hold - Provider: Automatic Transfer Provider - Reason: Patient not available)1424 ([facility] Unhold - Provider: Automatic Transfer Provider) 0617 (Given - Provider: Katina Machuca RN) polyethylene glycol (MIRALAX) packet 17 g 17 g, oral, Daily, First dose on Thu07/09/24 at 0900, Bowel Regimen - for prevention of constipation 0853 (Given - Provider: Jolene Cardona RN) 0828 (Not Given - Provider: Jacquelin Davidson RN - Reason: Patient not available)1145 (AUG Hold - Provider: Automatic Transfer Provider - Reason: Patient not available)1424 ([facility] Unhold - Provider: Automatic Transfer Provider) 0929 (Not Given - Provider: Jacquelin Davidson RN - Reason: Other) predniSONE (DELTASONE) tablet 60 mg 60 mg, oral, Daily, First dose on 07/24/24 at 0900 0852 (Given - Provider: Jolene Cardona RN) 0828 (Not Given - Provider: Jacquelin Davidson RN - Reason: Patient not available)1145 ([facility] Hold - Provider: Automatic Transfer Provider - Reason: Patient not available)1424 ([facility] Unhold - Provider: Automatic Transfer Provider) 0930 (Given - Provider: Jacquelin Davidson RN) sodium chloride 0.9 % flush 10 mL(Linked Group 1) 10 mL, intravenous, 2 times daily, First dose on 07/08/24 at 1445 0857 (Given - Provider: Jolene Cardona RN)2109 (Given - Provider: María Hawk RN) 0829 (Not Given - Provider: Jacquelin Davidson RN - Reason: Patient not available)1145 ([facility] Hold - Provider: Automatic Transfer Provider - Reason: Patient not available)1424 ([facility] Unhold - Provider: Automatic Transfer Provider)220 (Not Given - Provider: Katina Machuca RN - Reason: Other - Comment: already documented) 0930 (Not Given - Provider: Jacquelin Davidson RN - Reason: Other) sodium chloride 0.9 % flush 10 mL(Linked Group 2) 10 mL, intravenous, 2 times daily, First dose on Thu07/23/24 at 2100 0857 (Given - Provider: Jolene Cardona, ILIR)2109 (Given - Provider: María Hawk RN) 0829 (Not Given - Provider: Jacquelin Davidson RN - Reason: Patient not available)1145 ([facility] Hold - Provider: Automatic Transfer Provider - Reason: Patient not available)1424 ([facility] Unhold - Provider: Automatic Transfer Provider)212 (Given - Provider: Katina Machuca RN) 0930 (Given - Provider: Jacquelin Davidson RN) sulfamethoxazole-trimet hoprim (BACTRIM DS,SEPTRA DS) 800-160 mg per tablet 160 mg 160 mg, oral, 3 times weekly (Once per day on Thursday), First dose on Thu07/22/24 at 0900, For 20 days, Indication: Prophylaxis-Medical 0829 (Not Given - Provider: Jacquelin Davidson RN - Reason: Patient not available)1145 ([facility] Hold - Provider: Automatic Transfer Provider - Reason: Patient not available)1424 ([facility] Unhold - Provider: Automatic Transfer Provider) thiamine (VITAMIN B-1) tablet 100 mg 100 mg, oral, Daily, First dose on Thu07/18/24 at 1700 0853 (Given - Provider: Jolene Cardona, ILIR) 0829 (Not Given - Provider: Jacquelin Davidson RN - Reason: Patient not available)1145 ([facility] Hold - Provider: Automatic Transfer Provider - Reason: Patient not available)1424 ([facility] Unhold - Provider: Automatic Transfer Provider) 0930 (Given - Provider: Jacquelin Davidson RN) PRN Medication Order 08/04/2024 08/05/2024 08/06/2024 acetaminophen (TYLENOL) tablet 650 mg 650 mg, oral, Every 6 hours PRN, mild pain, fever - temperature GREATER than 38 C (100.4 F), Starting on Thu07/08/24 at 1437 2134 (Given - Provider: María Hawk RN) 1145 ([facility] Hold - Provider: Automatic Transfer Provider - Reason: Patient not available)142 ([facility] Unhold - Provider: Automatic Transfer Provider)2124 (Given - Provider: Katina Machuca RN) acetaminophen (TYLENOL) tablet 650 mg 650 mg, oral, Once as needed, mild pain, headaches, fever - temperature GREATER than 38 C (100.4 F), Starting on Thu07/28/24 at 1140, For 1 dose 1145 ([facility] Hold - Provider: Automatic Transfer Provider - Reason: Patient not available)1423 ([facility] Unhold - Provider: Automatic Transfer Provider)2140 (Not Given - Provider: Katina Machuca RN - Reason: Other - Comment: charted on q6 prn) albuterol 2.5 mg /3 mL (0.083 %) nebulizer solution 2.5 mg 2.5 mg, nebulization, Every 10 min PRN, shortness of breath, Starting on Thu07/28/24 at 1140, For 2 doses, -May repeat once if symptoms unresolved -Administer with 8L of oxygen 1145 ([facility] Hold - Provider: Automatic Transfer Provider - Reason: Patient not available)1423 ([facility] Unhold - Provider: Automatic Transfer Provider) benzonatate (TESSALON) capsule 100 mg 100 mg, oral, 3 times daily PRN, cough, Starting on Thu07/15/24 at 0957, Cough Do not crush or chew., Indications: cough 1145 ([facility] Hold - Provider: Automatic Transfer Provider - Reason: Patient not available)142 ([facility] Unhold - Provider: Automatic Transfer Provider) dextrose (D50W) 50% injection 12.5 g 12.5 g, intravenous, Every 15 min PRN, low blood sugar, moderate hypoglycemia *Patient is Unconscious, NPO, unable to swallow: BG 54 - 69 mg/dl*, Starting on Thu07/08/24 at 1649 1145 ([facility] Hold - Provider: Automatic Transfer Provider - Reason: Patient not available)142 ([facility] Unhold - Provider: Automatic Transfer Provider) dextrose (D50W) 50% injection 25 g 25 g, intravenous, Every 15 min PRN, low blood sugar, severe hypoglycemia *Patient is Unconscious, NPO, unable to swallow: BG LESS than 54 mg/dL*, Starting on Thu07/08/24 at 1649 1145 ([facility] Hold - Provider: Automatic Transfer Provider - Reason: Patient not available)1424 ([facility] Unhold - Provider: Automatic Transfer Provider) dextrose 15 gram/60 mL oral solution 15 g 15 g, oral, Every 15 min PRN, low blood sugar, hypoglycemia *Patient conscious AND able to drink and swallow safely*, Starting on Thu07/08/24 at 1649 1145 ([facility] Hold - Provider: Automatic Transfer Provider - Reason: Patient not available)1424 ([facility] Unhold - Provider: Automatic Transfer Provider) dextrose 15 gram/60 mL oral solution 30 g 30 g, oral, Every 15 min PRN, low blood sugar, hypoglycemia *Patient conscious AND able to drink and swallow safely*, Starting on Thu07/08/24 at 1649 1145 ([facility] Hold - Provider: Automatic Transfer Provider - Reason: Patient not available)1424 ([facility] Unhold - Provider: Automatic Transfer Provider) diphenhydrAMINE (BENADRYL) injection 25 mg 25 mg, intravenous, Once as needed, for Moderate hypersensitivity / infusion reaction (grade 2) symptoms, Starting on Soco 07/28/24 at 1140, For 1 dose, Use as needed for Moderate hypersensitivity / infusion reaction (grade 2) symptoms include: -Flushing -Dizziness -Back pain -Rigors -Localized hives/rash -Pruritis -Nausea -Vomiting -Abdominal cramping -Temperature GREATER than 100.5 F -Uneasiness -Agitation -Feeling of impending doom Use with caution in patients over 60 years of age, or with asthma 1145 ([facility] Hold - Provider: Automatic Transfer Provider - Reason: Patient not available)1424 ([facility] Unhold - Provider: Automatic Transfer Provider) [...] years of age, or with asthma 1145 ([facility] Hold - Provider: Automatic Transfer Provider - Reason: Patient not available)1424 ([facility] Unhold - Provider: Automatic Transfer Provider) EPINEPHrine (ADRENALIN) IM Kit - adult 0.3 mg 0.3 mg, intramuscular, Every 15 min PRN, anaphylaxis, For systolic BP LESS than 90 mmHg, Starting on Soco 07/28/24 at 1140, For 3 doses, May repeat every 15 minutes as needed for a maximum of 3 doses 1145 ([facility] Hold - Provider: Automatic Transfer Provider - Reason: Patient not available)1424 ([facility] Unhold - Provider: Automatic Transfer Provider) [...] push over at least 2 minutes 1145 ([facility] Hold - Provider: Automatic Transfer Provider - Reason: Patient not available)1424 ([facility] Unhold - Provider: Automatic Transfer Provider) Glucagon HCl (rDNA) injection 1 mg 1 mg, intramuscular, Once as needed, low blood sugar, severe hypoglycemia, Starting on Thu07/08/24 at 1649, For 1 dose 1145 ([facility] Hold - Provider: Automatic Transfer Provider - Reason: Patient not available)1424 ([facility] Unhold - Provider: Automatic Transfer Provider) hydrALAZINE (APRESOLINE) injection 10 mg 10 mg, intravenous, Every 6 hours PRN, systolic BP greater than:, SBP>160, Starting on Thu07/09/24 at 1504 1145 ([facility] Hold - Provider: Automatic Transfer Provider - Reason: Patient not available)1424 ([facility] Unhold - Provider: Automatic Transfer Provider) [...] -Generalized rash Administer over 2 minutes 1145 ([facility] Hold - Provider: Automatic Transfer Provider - Reason: Patient not available)1424 ([facility] Unhold - Provider: Automatic Transfer Provider) HYDROmorphone (PF) injection 0.5 mg 0.5 mg, intravenous, Every 3 hours PRN, severe pain or when therapies for moderate pain were not effective, Starting on Thu07/08/24 at 1437 1145 ([facility] Hold - Provider: Automatic Transfer Provider - Reason: Patient not available)1424 ([facility] Unhold - Provider: Automatic Transfer Provider) [...] up to 10 doses (0.4 mg) 1145 ([facility] Hold - Provider: Automatic Transfer Provider - Reason: Patient not available)1424 ([facility] Unhold - Provider: Automatic Transfer Provider) ondansetron (PF) (ZOFRAN) injection 4 mg 4 mg, intravenous, Every 6 hours PRN, vomiting, nausea, Starting on Thu07/08/24 at 1437, -ONLY give IV if patient is unable to take orally. -If inadequate response within 30 minutes, proceed to next-line agent or contact provider if no further options ordered. 0446 (Given - Provider: María Hawk RN) 1145 ([facility] Hold - Provider: Automatic Transfer Provider - Reason: Patient not available)1424 ([facility] Unhold - Provider: Automatic Transfer Provider) oxyCODONE (ROXICODONE) immediate release tablet 5 mg 5 mg, oral, Every 4 hours PRN, moderate pain or when therapies for mild pain were not effective, Starting on Thu07/08/24 at 1437 1145 ([facility] Hold - Provider: Automatic Transfer Provider - Reason: Patient not available)1424 ([facility] Unhold - Provider: Automatic Transfer Provider) polyvinyl alcohol-povidone (PF) (ARTIFICIAL TEARS) 1.4-0.6 % ophthalmic solution 2 drop 2 drop, Both Eyes, Every 2 hours PRN, dry eyes, Starting on Thu07/08/24 at 1746 1122 (Given - Provider: Jolene Cardona, RN)2101 (Given - Provider: María Hawk RN) 1145 ([facility] Hold - Provider: Automatic Transfer Provider - Reason: Patient not available)1424 ([facility] Unhold - Provider: Automatic Transfer Provider)2123 (Given - Provider: Katina Machuca RN) sodium chloride 0.9 % bolus 500 mL 500 mL, intravenous, at 2,000 mL/hr, Administer over 15 Minutes, Once as needed, for hypotensive management (systolic BP below 90 mmHg), Starting on Soco 07/28/24 at 1140, For 1 dose, Run wide open and await physician orders 1145 ([facility] Hold - Provider: Automatic Transfer Provider - Reason: Patient not available)1424 ([facility] Unhold - Provider: Automatic Transfer Provider) sodium chloride 0.9 % flush 10 mL(Linked Group 1) 10 mL, intravenous, As needed, line care, Starting on Thu07/08/24 at 1437 1145 ([facility] Hold - Provider: Automatic Transfer Provider - Reason: Patient not available)1424 ([facility] Unhold - Provider: Automatic Transfer Provider) sodium chloride 0.9 % flush 10 mL(Linked Group 2) 10 mL, intravenous, As needed, line care, Starting on 07/23/24 at 1617 1145 ([facility] Hold - Provider: Automatic Transfer Provider - Reason: Patient not available)1424 ([facility] Unhold - Provider: Automatic Transfer Provider) [...] each new unit of blood administered 1145 ([facility] Hold - Provider: Automatic Transfer Provider - Reason: Patient not available)1424 ([facility] Unhold - Provider: Automatic Transfer Provider) [...] each new unit of blood administered 1145 ([facility] Hold - Provider: Automatic Transfer Provider - Reason: Patient not available)1424 ([facility] Unhold - Provider: Automatic Transfer Provider) [...] each new unit of blood administered 1145 ([facility] Hold - Provider: Automatic Transfer Provider - Reason: Patient not available)1424 ([facility] Unhold - Provider: Automatic Transfer Provider) [...] each new unit of blood administered 1145 ([facility] Hold - Provider: Automatic Transfer Provider - Reason: Patient not available)1424 ([facility] Unhold - Provider: Automatic Transfer Provider) Linked [...] Count Last Ordered Date First Ordered Date apixaban (ELIQUIS) tablet 5 mg 2 08/06/2024 07/30/2024 diphenhydrAMINE (BENADRYL) injection 25 mg 4 08/05/2024 07/28/2024 fentaNYL (PF) (SUBLIMAZE) injection 50 mcg 2 08/05/2024 haloperidol lactate (HALDOL) injection 1 mg 2 08/05/2024 HYDROmorphone (PF) injection 0.5 mg 3 08/0507/08/2024 oxyCODONE (ROXICODONE) immed iate release tablet 5 mg 3 08/05/2024 07/08/2024 sodium chloride 0.9 % bolus 100 mL 3 202407/16/2024 sodium chloride 0.9 % infusion 5 08/02/2024 07/08/2024 apixaban (ELIQUIS) tablet 10 mg 2 5 07/20/2024 acetaminophen (TYLENOL) tablet 650 mg 3 07/08/2024 albuterol 2.5 mg /3 mL (0.08 3 %) nebulizer solution 2.5 mg 1 07/28/2024 diphenhydrAMINE (BENADRYL) injection 50 mg 1 07/28/2024 EPINEPHrine (ADRENALIN) IM K it - adult 0.3 mg 1 07/28/2024 famotidine (PF) (PEPCID) injection 20 mg 1 07/28/2024 hydrocortisone sod succ (PF) (SOLU-CORTEF) injection 100 mg 1 07/28/2024 riTUXimab-pvvr (RUXIENCE) 70 0 mg in sodium chloride 420 mL IVPB 1 07/28/2024 sodium chloride 0.9 % bolus 500 mL 1 2024 predniSONE (DELTASONE) tablet 60 mg 1 07/24 sodium chloride 0.9 % flush 10 mL 4 025 07/08/2024 fentaNYL (PF) (SUBLIMAZE) injection 2 07/2207/15/2024 midazolam (VERSED) injection 2 07/22/2024 07/15/2024 docusate sodium (COLACE) capsule 100 mg 1 0 07/21/2024 heparin (UFH) bolus from inf usion 3,144 Units 1 07/21/2024 heparin (UFH) bolus from inf usion 3,296 Units 1 07/21/2024 heparin (UFH) bolus from inf usion 6,288 Units 1 07/21/2024 heparin (UFH) bolus from inf usion 6,592 Units 2 07/21/2024 heparin infusion 100 units/mL in D5W 4 06/3007/16/2024 lactulose (CHRONULAC) solution 20 g 1 07/21 methylPREDNISolone sodium conner cc (SOLU-Medrol) 500 mg in sodium chloride 0.9 % 100 mL IVPB 1 07/21/2024 sulfamethoxazole-trimethopri m (BACTRIM DS,SEPTRA DS) 800-160 mg per tablet 160 mg 1 07/21/2024 heparin (UFH) bolus from inf usion 3,268 Units 1 07/20/2024 heparin (UFH) bolus from inf usion 6,536 Units 1 07/20/2024 B complex-vitamin C-folic ac id (NEPHRO-SAVITA) tablet 1 tablet 1 07/18/2024 thiamine (VITAMIN B-1) tablet 100 mg 1 06/30 insulin glargine (LANTUS) in jection 10 Units 1 07/17/2024 insulin lispro injection 3 Units 3 07/17/19 25 07/08/2024 heparin (UFH) bolus from inf usion 3,224 Units 2 07/16/2024 heparin (UFH) bolus from inf usion 6,448 Units 1 07/16/2024 albumin human 25 % infusion 12.5 g 1 2024 benzonatate (TESSALON) capsule 100 mg 1 lidocaine (XYLOCAINE) 1 % injection 1 07/15 lidocaine-EPINEPHrine (XYLOC DANIEL W/EPI) 1 %-1:100,000 injection 1 07/15/2024 potassium chloride (KLOR-CON M20) CR tablet 20 mEq 1 07/14/2024 albumin human 25 % infusion 25 g 2 07/13/19 25 07/12/2024 furosemide (LASIX) injection 40 mg 1 2024 insulin glargine (LANTUS) in jection 8 Units 1 07/11/2024 insulin lispro injection 2 Units 1 07/11/19 25 lactated Ringer's infusion 2 07/11/2024 0 07/10/2024 ferric gluconate (FERRLECIT) 125 mg in sodium chloride 0.9 % 110 mL IVPB 1 07/10/2024 pantoprazole (PROTONIX) EC tablet 40 mg 1 0 07/10/2024 hydrALAZINE (APRESOLINE) injection 10 mg 2 07/09/2024 07/08/2024 atorvastatin (LIPITOR) tablet 10 mg 1 07/08 dextrose (D50W) 50% injection 12.5 g 1 06/29 dextrose (D50W) 50% injection 25 g 1 2024 dextrose 15 gram/60 mL oral solution 15 g 07/08/2024 dextrose 15 gram/60 mL oral solution 30 g 1 07/08/2024 ferrous sulfate 300 mg (60 m g elemental iron)/5 mL liquid 300 mg 1 07/08/2024 Glucagon HCl (rDNA) injection 1 mg 1 2024 insulin lispro injection 1-6 Units 1 2024 naloxone (NARCAN) injection 0.04 mg 1 07/08 ondansetron (PF) (ZOFRAN) injection 4 mg 1 07/08/2024 pamidronate (AREDIA) 30 mg i n sodium chloride 0.9 % 260 mL infusion 1 07/08/2024 polyethylene glycol (MIRALAX) packet 17 g 1 07/08/2024 polyvinyl alcohol-povidone ( PF) (ARTIFICIAL TEARS) 1.4-0.6 % ophthalmic solution 2 drop 1 07/08/2024 Lab Orders Without Results Count Last Ordered D ate First Ordered Date POCT GLUCOSE, BLOOD 113 08/06/2024 07/08/19 EKG Orders Without Results Count Last Ordered [...] IP CONSULT TO NUTRITION SERVICES 1 07/08/19 Dialysis Count Last Ordered Date First Orde [...] documented as of this encounter Care Teams Kennel Helper Relationship Specialty Start Date End Date Eloisa Vázquez DO [address] [place] [address] PCP - General 04/12/24 documented as of this encounter
--- OUTSIDE RECORDS SUMMARY | 2024-08-08 05:46 | XMS_ITS | Encounter Summary ---
Author Organization [facility] Address [address] [place] [address] Phone Care Team Providers Care Forest Nursery Supervisor Name Role Phone Eloisa Vázquez Primary Care Provider [phone] Encounter Details Date Type Department Care Team (Late st Contact Info) Description 07/28/2024 Telephone [facility] [address] [place] [id number] Maggy Mcgarry [address] [facility] [facility] [address] [place] [phone] Social History Tobacco Use Types Packs/Day Years Used Date Smoking Tobacco: Never Assessed Comments Unknown Sex and Gender Information Value Date Recorded Sex Assigned at Not on file Legal Sex Female 10:11 AM EST Gender Identity Not on file Sexual Orientation Not on file documented as of this encounter Miscellaneous Notes * Telephone Encounter - Maggy Mcgarry - 07/28/2024 11:18 AM EST [facility] called requesting to speak to you regarding the biopsy results Dr. Santoyo [phone] Messaged has been sent on [facility] documented in this encounter Plan of Treatment Not on file documented as of this encounter Visit Diagnoses Not on filedocumented in this encounter Care Teams Forest Nursery Supervisor Relationship Specialty Start Date End Date Eloisa Vázquez [address] [place] [address] [id number] PCP - General Internal Medicine 07/11/24 documented as of this encounter
--- OUTSIDE RECORDS SUMMARY | 2024-08-08 05:46 | XMS_ITS | Clinical Summary ---
Author Organization [facility] Address [address] [place] [address] Phone Care Team Providers Care Steamer Blocker Name Role Phone Eloisa Vázquez Primary Care Provider [phone] Encounters Date Type Department Care Team Description 07/28/2024 Telephone [facility] [address] [id number] Maggy Mcgarry from Last 3 Months Social History Tobacco Use Types Packs/Day Years Used Date Smoking Tobacco: Never Assessed Comments Unknown Sex and Gender Information Value Date Recorded Sex Assigned at Not on file Legal Sex Female 10:11 AM EST Gender Identity Not on file Sexual Orientation Not on file Plan of Treatment Health Maintenance Due Date Last Done Comments Pneumococcal Vaccine: 65+ Ye ars (1 of 2 - PCV) 1951 Influenza Vaccine (#1) 2024 Hepatitis B Vaccine Aged Out No longe r eligible based on patient's age to complete this topic Insurance [facility] MEDICARE Care Teams Steamer Blocker Relationship Specialty Start Date End Date Eloisa Vázquez [address] [place] [phone] PCP - General Internal Medicine 07/11/24
--- OUTSIDE RECORDS SUMMARY | 2024-08-08 05:46 | XMS_ITS | Encounter Summary ---
Author Organization [facility] Address [address] [place] [address] Care Team Providers Care Livestock Exhibitor Name Role Phone Eloisa Vázquez DO Primary Care Provider [phone] Reason for Visit * Auth/Cert Specialty Diagnoses / Procedures Referred By Conthector t Referred To Contact Diagnoses Acute encephalopathy Procedures . Wayne Donahue MD [address] [place] [phone] Phone: tel: fax: [facility] Emergency [address] [place] [address] Phone: tel: Referral ID Status Reason Start Date Expiration Date Visits Re quested Visits Authorized [id number] 1 1 Encounter Details Date Type Department Care Team (Late st Contact Info) Description 08/05/2024 11:46 AM EST Anesthesia Event [facility] Main OR [address] [place] [address] Monroe Kim MD [address] [place] [id number] Anesthesia Record Procedure Summary Procedure Name Responsible Anesthesiologist Anesthesia Start Time Anesthesia Stop Time Navigation bronchoscopy/EBUS (Bronchus) Monroe Kim MD 08/05/24 1146 08/05/24 1310 Events Date Time Event Comment 08/05/2024 1121 AN Equip Check 1146 In Room 1146 An Start 1146 An Start Data The patient wa s reevaluated immediately before moderate or deep sedation use and before anesthesia induction. 1148 1151 An Induction 1155 An Intubation 1157 Anesthesia Ready 1208 Proc Start 1254 Proc Fin 1258 An Extubation 1300 an stop data 1305 Out of Room 1305 Transport to PACU/ICU Patien t reassessed and ready for transfer, airway stable. Patient transport to designated recovery area. {Transport to PACU/ICU:[id number]} 1309 Handoff to RN I completed my handoff to the receiving nurse during which we: 1. Identified the patient 2. Identified the responsible provider 3. Reviewed the pertinent medical history 4. Discussed the surgical course 5. Reviewed intra-op anesthesia management and issues during anesthesia 6. Set expectations for post-procedure period 7. Allowed opportunity for questions and acknowledgement of understanding. 1310 An Stop Meds Name Total fentaNYL (SUBLIMAZE) injection 100 mcg propofol (DIPRIVAN) injection 10 mg/mL 2 00 mg rocuronium 100 mg ondansetron 2 mg/mL 4 mg glycopyrrolate 0.2 mg/mL 0.2 mg phenylephrine (VICENTA-SYNEPHRINE) 100 mcg/m L syringe 10 mL 1,060 mcg dexamethasone (DECADRON) injection 4 mg/ mL 8 mg lidocaine PF (XYLOCAINE-MPF) local injec tion 2% 60 mL propofoL (DIPRIVAN) infusion 10 mg/mL 46 4.94 mg sugammadex (BRIDION) injection 100 mg/mL 200 mg sodium chloride 0.9 % infusion 375 mL * Agents No agents on file. * Blood No blood administrations on file. Lines, Drains, and Airways Type Details Placement Removal Hemodialysis Cath Left; Subclavian; Subclavian 07/21/24 0919 by Wound Pressure inj; ; 0800; Gluteal Cleft; Inner, Right 07/14/24 0800 by Joseph Reese RN Wound Med Device R (purple area from laying on the marcelo tubing); 07/20/24; 0800; N; Leg; Left, Posterior, Proximal, Upper; purple area 07/20/24 0800 by Jolene Cardona RN Midline 07/23/24; 1619; Yes; Single Lumen; 18 G; Powerglide Lot: [id number]; 10 cm; Right; Basilic; Chlorhexidine; Yes; (mask,gloves,drape); None; 37 cm; 0 cm; Transparent dressing, Other (Comment) (Statlock); Ricco Spencer IV RN; 1; Tolerated well; Blood return, Ultrasound; 08/06/24; 1147; Other (Comment) (discharged); 10 cm; No 07/23/24 1619 by aMggy Spencer RN 08/06/24 1147 by Chucky Romero RN ETT Placement Date: 01/20; Placement Time: 1210 (created via procedure documentation); Mask Ventilation: 1; Technique: Direct laryngoscopy; Type: ETT; Cuffed: Yes; Blade Size: 3; Location: Oral; Insertion Attempts: 1; Placement Verification: Auscultation, Capnometry, Palpation of cuff; Removal Date: 08/05/24; Removal Time: 1258 08/05/24 1210 by Candelaria Tatum CRNA 08/05/24 1258 by Candelaria Tatum CRNA documented in this encounter Social History Tobacco Use Types Packs/Day Years [...] documented in this encounter Progress Notes * Candelaria Tatum CRNA - 08/05/2024 1:12 PM EST Patient: Ana Contreras Procedure Summary Date: 08/05/24 Room / Location: [facility] OR [address] [place] [address] OR Anesthesia Start: 1146 Anesthesia Stop: 1310 Procedure: Navigation bronchoscopy/EBUS with biopsies (Bronchus) Diagnosis: Pulmonary nodule (PULMONARY NODULE) Surgeons: Cecily Montez MD Responsible Provider: Monroe Kim MD Anesthesia Type: general ASA Status: 3 Anesthesia Plan: general Last Vitals: Vitals Value Taken Time BP 102/59 08/05/24 1312 Temp 97.3 08/05/24 1312 Pulse 85 08/05/24 1312 Resp 15 08/05/24 1312 SpO2 100 08/05/24 1312 Pain Score: 0 - No pain Anesthesia Post Evaluation There were no known notable events for this encounter. * Candelaria Tatum CRNA - 08/05/2024 12:08 PM ESTAssociated Order(s): Intubation General Information and Staff Patient location during procedure: OR Anesthesiologist: Monroe Kim MD Resident/CLUTCH INSPECTOR: Candelaria Tatum CRNA Performed: resident/CLUTCH INSPECTOR/CAA Performed by: Candelaria Tatum CRNA Authorized by: Monroe Kim MD Intubation Airway not difficult Urgency: elective Final [...] difficulty assessment: 1 - vent by mask * Monroe Kim MD - 08/05/2024 10:21 AM EST Images from the original note were not included. 79 y.o. female scheduled for Hyponatremia; Acute on chronic renal insufficiency; Acute encephalopathy; * [Navigation bronchoscopy/EBUS with biopsies (Bronchus)] Ht Readings from Last 1 Encounters: 07/09/24 1.625 m (63.98 ) Wt Readings from Last 1 Encounters: 08/05/24 71.2 kg (156 lb 14.4 oz) Body mass index is 26.95 kg/m??. Past Medical History: Diagnosis Date Anemia Arthritis [...] PROCEDURE: ---- OTHER ----; COMMENT: lumbar microdiscectomy Anesthesia complications Denies No Known Allergies Prior to Admission medications Medication Sig Start Date End Date Taking? Authorizing Provider CALCIUM CARBONATE ORAL Calcium 600mg Take 1 tablet (600 mg total) by mouth daily Patient not taking: Reported on 07/08/2024 Historical Provider, cetirizine (ZyrTEC) 10 mg chewable tablet Take 1 tablet (10 mg total) by mouth daily., Historical Provider, cholecalciferol (VITAMIN D-3) 50 mcg (2,000 unit) capsule Take 1 capsule (2,000 Units total) by mouth 1 (one) time each day. Historical Provider, CRANBERRY ORAL Take by mouth Historical Provider, ferrous sulfate 325 mg (65 mg iron) EC tablet Do not crush, chew, or split. Take 1 tablet (325 mg total) by mouth every morning with breakfast Historical Provider, glipiZIDE (GLUCOTROL XL) 5 mg 24 hr tablet TAKE 2 TABLETS BY MOUTH IN THE MORNING AND TAKE 1 TABLETBY MOUTH IN THE AFTERNOON (WITH MEALS) 06/17/24 Kayleigh Pedraza NP lisinopriL (PRINIVIL,ZESTRIL) 10 mg tablet Take 1 tablet (10 mg total) by mouth daily Historical ProviderMD simvastatin (ZOCOR) 20 mg tablet Take 1 tablet (20 mg total) by mouth every night at bedtime Historical Provider, I have personally reviewed all the patient's medications with them prior to anesthesia. Current In-hospital Medications [Held by provider] apixaban, 10 mg, oral, [...] chloride, sodium chloride, sodium chloride, sodium chloride Social History Tobacco Use Smoking status: Never Passive exposure: Never Smokeless tobacco: Never Substance Use Topics Alcohol use: No Drug use: No Is the patient a current smoker (e.g. cigarette, cigar, pip, e-cigarette, or mariajuana)? Yes [] No[x] Patient previously instructed to abstain from smoking on the day of procedure? Yes [] No[] Patient smoked on the day of procedure? Yes [] No[] ASPIRE smoking VBR: [] Not interested in quitting [] Interested in quitting- referred to treatment [] Interested in quitting - treatment provided Visit Vitals BP (!) 142/73 Pulse 80 Temp 36.5 ??C (97.7 ??F) (Temporal) Resp 16 Ht 1.625 m (63.98 ) Wt 71.2 kg (156 lb 14.4 oz) SpO2 100% Comment: Room air BMI 26.95 kg/m?? Smoking Status Never BSA 1.76 m?? LABS: Lab Results Component Value Date WBC 8.8 08/05/2024 HGB 7.9 (L) 08/05/2024 HCT 25.5 (L) 08/05/2024 MCV 87.6 08/05/2024 PLT 180 08/05/2024 Lab Results Component Value Date GLUCOSE 138 (H) 08/05/2024 CALCIUM 8.4 (L) 08/05/2024 NA 133 08/05/2024 K 4.5 08/05/2024 CO2 32 08/05/2024 CL 96 08/05/2024 BUN 53 (H) 08/05/2024 CREATININE 3.91 (H) 08/05/2024 Lab Results Component Value Date INR 1.3 07/22/2024 INR 1.4 07/20/2024 INR 1.3 07/15/2024 No results found for: PTT Relevant Problems Cardio (+) Hypertension Endo (+) Type 2 diabetes mellitus without complication, without long-term current use of insulin ([facility]) Other (+) Iron deficiency anemia Clinical information reviewed: Tobacco Allergies Meds Problems Med Hx Surg Hx Fam Hx Soc Hx Anesthesia Plan ASA 3 Anesthesia Plan: general General Anesthesia Considerations: ETT Anesthesia Risks Discussed allergic reaction, dental injury, nausea, serious complications, pain, sore throat and corneal abrasion Plan Factors Patient is not a current smoker Smoking cessation education has not been provided Induction method: intravenous Postoperative administration of opioids is intended. Anesthetic plan and risks discussed with patient. Use of blood products discussed with patient who consented to blood products. Anesthesia Plan discussed with attending. Anesthesia Evaluation Patient summary reviewed and Nursing notes reviewed History of anesthetic complications Airway Mallampati: II Thyromental distance: >3 FB Neck ROM: fullnot intubatedno noted risk Dental (+) upper dentures Pulmonary breath sounds clear to auscultation (+) decreased breath sounds Cardiovascular Exercise tolerance: poor (+) hypertension ECG reviewed Rhythm: regular Rate: normal Neuro/Psych - negative ROS Mental Status: alert and oriented GI/Hepatic/Renal (+) chronic renal disease dialysis Endo/Other (+) diabetes mellitus type 1 using insulin Abdominal Abdomen: soft. Bowel sounds: normal. PONV RISK SCORE: 3 Vitals: 08/05/24 0900 08/05/24 0915 08/05/24 0930 08/05/24 0945 BP: (!) 150/72 (!) 148/73 (!) 151/75 (!) 142/73 BP Location: Patient Position: Pulse: 68 82 80 80 Resp: Temp: TempSrc: SpO2: Weight: Height: SpO2 Readings from Last 1 Encounters: 08/05/24 100% WBC Date Value Ref Range Status 08/05/2024 8.8 4.8 - 10.8 K/mcL Final RBC Date Value Ref Range Status 08/05/2024 2.90 (L) 3.80 - 4.80 M/mcL Final Hemoglobin Date Value Ref Range Status 08/05/2024 7.9 (L) 11.5 - 16.0 g/dL Final Hematocrit Date Value Ref Range Status 08/05/2024 25.5 (L) 35.0 - 47.0 % Final Platelets Date Value Ref Range Status 08/05/2024 180 130 - 400 K/mcL Final MCV Date Value Ref Range Status 08/05/2024 87.6 79.0 - 98.0 FL Final No Known Allergies STOP BANG: No data recorded NPO Status: No data recorded documented in this encounter Plan of Treatment Upcoming Encounters Date Type Department Care Team (Late st Contact Info) Description 08/10/2024 10:00 AM EST Office Visit [facility] Hematology Oncology [address] [place] [phone] Jaime Grimaldo MD [address] [place] [address] 08/15/2024 1:30 PM EST Office Visit Thoracic Surgery - [place] [address] [phone] Cecily Montez MD [address] [address] 08/23/2024 3:00 PM EST Office Visit Gastroenterology - 299 [facility] [address] [phone] Josiane Smith, PROOF PRESS OPERATOR [address] [place] [address] 08/24/2024 11:15 AM EST Office Visit [facility] Medicine - [facility] [address] [place] [address] Marie VázquezmanaDO [address] [place] [address] 09/05/2024 10:00 AM EDT Office Visit Endocrinology - [place] [address] [place] [address] Kathy Michelle PA [address] [place] [address] 09/06/2024 11:00 AM EDT Ancillary Procedure [facility] - [address] 300 [facility] 101 [place] [phone] 01/24/2025 1:30 PM EDT Consult Nephrology - [facility] 305 [place], [place] [phone] Chencho Wayne MD [address] [facility] 200 [place] [address] documented as of this encounter Procedures Procedure Name Priority Date/Time Associated Diagnosis Comments TH AN ENDOTRACHEAL(NO CHARGE) Routine 08/05/2024 12:08 PM EST documented in this encounter Results * TH AN ENDOTRACHEAL(NO CHARGE) (08/05/2024 12:08 PM EST) Candelaria Romano CRNA - 08/05/2024 12:08 PM EST Candelaria Tatum CRNA ? 08/05/2024 12:10 PM General Information and Staff Patient location during procedure: OR Anesthesiologist: Monroe Kim MD Resident/CLUTCH INSPECTOR: Candelaria Tatum CRNA Performed: resident/CLUTCH INSPECTOR/CAA Performed by: Candelaria Tatum CRNA Authorized by: [...] Kim MD ANESTHESIA ORDERABLES Final Re sult documented in this encounter Visit Diagnoses Not on filedocumented in this encounter Administered Medications Inactive Administered Medications - up to 3 most recent administrations Medication Order MAR Action Action Date Dose Rate Site dexAMETHasone (DECADRON) injection intravenous, As needed, Starting on Thu08/05/24 at 1157, Anesthesia Intraprocedure Given 08/05/2024 11:57 AM EST 8 mg fentaNYL (PF) (SUBLIMAZE) injection intravenous, As needed, Starting on Thu08/05/24 at 1150, Anesthesia Intraprocedure Given 08/05/2024 11:50 AM EST 100 mcg glycopyrrolate (ROBINUL) injection intravenous, As needed, Starting on Thu08/05/24 at 1158, Anesthesia Intraprocedure Given 08/05/2024 11:58 AM EST 0.2 mg lidocaine (PF) (XYLOCAINE-MPF) 2 % injection injection, As needed, Starting on Thu08/05/24 at 1149, Anesthesia Intraprocedure Given 08/05/2024 11:49 AM EST 60 mL ondansetron (PF) (ZOFRAN) injection intravenous, As needed, Starting on Thu08/05/24 at 1157, Anesthesia Intraprocedure Given 08/05/2024 11:57 AM EST 4 mg phenylephrine (VICENTA-SYNEPHRINE) injection intravenous, As needed, Starting on Thu08/05/24 at 1151, Anesthesia Intraprocedure Given 08/05/2024 12:42 PM EST 80 mcg Given 08/05/2024 12:41 PM EST 80 mcg Given 08/05/2024 12:38 PM EST 100 mcg propofoL (DIPRIVAN) infusion 10 mg/mL intravenous, Continuous PRN, Starting on Thu08/05/24 at 1200, Anesthesia Intraprocedure Rate/Dose Change 08/05/2024 12:49 PM EST 50 mcg/kg/min 21.36 mL/hr Rate/Dose Change 08/05/2024 12:43 PM EST 75 mcg/kg/min 32. 04 mL/hr Rate/Dose Change 08/05/2024 12:39 PM EST 100 mcg/kg/min 42 .72 mL/hr propofoL (DIPRIVAN) injection intravenous, As needed, Starting on Thu08/05/24 at 1151, Anesthesia Intraprocedure Given 08/05/2024 12:10 PM EST 5 0 mg Given 08/05/2024 11:52 AM EST 50 mg Given 08/05/2024 11:51 AM EST 100 mg rocuronium (ZEMURON) injection intravenous, As needed, Starting on Thu08/05/24 at 1153, Anesthesia Intraprocedure Given 08/05/2024 11:53 AM EST 100 mg sodium chloride 0.9 % infusion intravenous, Continuous PRN, Starting on Thu08/05/24 at 1146, Anesthesia Intraprocedure New Bag 08/05/2024 11:46 AM EST 25 m L/hr sugammadex (BRIDION) 100 mg/mL injection intravenous, As needed, Starting on Thu08/05/24 at 1253, Anesthesia Intraprocedure Given 08/05/2024 12:53 PM EST 200 mg documented in this encounter Additional Health Concerns Infection Onset Date Last Indicated Resolved Time Tuberculosis Rule-Out 08/05/2024 08/05/2024 documented as of this encounter Care Teams Livestock Exhibitor Relationship Specialty Start Date End Date Eloisa Vázquez DO [address] [place], [place] [address] [address] PCP - General 04/12/24 documented as of this encounter
--- OUTSIDE RECORDS SUMMARY | 2024-08-08 05:46 | XMS_ITS | Encounter Summary ---
Author Organization [facility] Address [address] [place] [address] Care Team Providers Care Leno Sewer Name Role Phone Marie Vázquezmankamryn CHERY Primary Care Provider [phone] Reason for Visit * Reason Onset Date Comments Procedure 06/14/2024 [facility] , ct scan Encounter Details Date Type Department Care Team ([facility] Contact Info) Description 06/14/2024 Telephone Thoracic Surgery - [place] 299 [facility] [address] [place] [address] Cecily Montez MD 299 [facility] [address] [place], [place] [phone] Procedure ([facility] , ct scan) Social History Tobacco Use Types Packs/Day Years Used Date Smoking Tobacco: Never Smokeless Tobacco: Never Alcohol Use Standard [...] as of this encounter Progress Notes * Cheyenne Evangelista - 07/27/2024 11:54 AM EST Due to some unforseen circumstance surgery was reschedule for 08/05/2023 at 12:00 pm Patient will be notify * Cheyenne Evangelista - 07/19/2024 9:21 AM EST I spoke with the patient???s daughter, Dennise, who had several medical questions regarding her mother. She mentioned that there is a possibility her mom may be going to rehab and is unsure about how transportation would work. Dennise also expressed concern about whether it is appropriate to move forward with surgery given the patient???s current health issues and she is currently still inpatient at the hospital. Current surgery date 07/27/24 at 11:30 am arrival 10:00 am No testing needed Ct-scan done on 07/12 as inpatient ED Dennise can be reached [phone] Please advice * Cheyenne Evangelista - 07/13/2024 10:44 AM EST Spoke with patient son Paul and his aware of the new date. Paul requested a letter to be send him. * Cheyenne Evangelista - 07/05/2024 10:48 AM EST Patient is aware of surgery date and time, 07/14/24 post-op and all questions where answer . * Cheyennekaren Escobarila - 06/28/2024 11:53 AM EST No auth needed [employer] 06/28/25 * Cheyenne Evangelista - 06/24/2024 11:11 AM EST Patient is cleared for surgery 06/17 * Cheyenne Evangelista - 06/14/2024 1:20 PM EST Patient is booked for surgery on 06/24/2024 at 11:30 arrival time 10:30 am Pat is booked 06/17/24 at 11:30 am Post op 07/07/24 at 9:45 w/ Dr. Montez Cardio Clearances Pending Ct-scan 06/17/24 1:15 pm documented in this encounter Plan of Treatment Upcoming Encounters Date Type Department Care Team (Late st Contact Info) Description 08/10/2024 10:00 AM EST Office Visit [facility] Hematology Oncology [address] [place] [phone] Jaime Grimaldo MD [address] [place] [address] 08/15/2024 1:30 PM EST Office Visit Thoracic Surgery - [place] [address] [facility] [address] [phone] Cecily Montez MD [address] [address] 08/23/2024 3:00 PM EST Office Visit Gastroenterology - [address] [place] [address] [phone] Josiane Smith NP [address] [address] 08/24/2024 11:15 AM EST Office Visit Internal Medicine - [facility] 305 [place] [address] Eloisa Vázquez DO 305 [place] [address] 09/05/2024 10:00 AM EDT Office Visit Endocrinology - [place] [address] [place] [address] Kathy Michelle PA [address] [place] [address] 09/06/2024 11:00 AM EDT Ancillary Procedure [facility] - [address] [facility] 101 [place] [address] 01/24/2025 1:30 PM EDT Consult Nephrology - [facility] 305 [place], [place] [phone] Chencho Wayne MD [address] [facility] 200 [place] [address] documented as of this encounter Visit Diagnoses Not on filedocumented in this encounter Additional Health Concerns Infection Onset Date Last Indicated Resolved Time Respiratory Rule-Out 07/08/2024 07/08/2024 025 4:18 PM EST COVID-19 Rule-Out 07/08/2024 07/08/2024 07/08/2024 4:18 PM EST documented as of this encounter Care Teams Leno Sewer Relationship Specialty Start Date End Date Eloisa Vázquez DO [address] [place] [address] PCP - General 04/12/24 documented as of this encounter
[2024-08-08 06:10] LABS: Basophils Percent Auto 0.3 % (0-2); Eosinophils Absolute Auto 0.1 X10*3/uL (0.0-0.4); Eosinophils Percent Auto 1.8 % (0-4); Hematocrit 26.2 % (37.0-47.0); Hemoglobin 8.1 g/dl (12.0-16.0); Imm Gran Abs Auto 0.05 X10*3/uL (0.00-0.03); Imm Gran Pct Auto 0.7 % (0.0-0.4); Lymphocytes Absolute Auto 1.2 X10*3/uL (1.2-4.9); Lymphocytes Percent Auto 15.9 % (20-40); Mean Corpuscular HGB Conc 30.9 g/dl (31.0-35.0); Mean Corpuscular Hemoglobin 26.3 pg (27.0-33.0); Mean Corpuscular Volume 85.1 fL (80.0-98.0); Monocytes Absolute Auto 0.5 X10*3/uL (0.1-1.2); Monocytes Percent Auto 6.4 % (2-11); Neutrophils Absolute Auto 5.8 x10*3/uL (2.0-8.3); Neutrophils Percent Auto 74.9 % (45-73); Platelet Count 169 X10*3/uL (160-400); Red Blood Count 3.08 X10*6/uL (4.20-5.50); Red Cell Distribution Width 22.1 % (11.0-16.0); White Blood Count 7.7 X10*3/uL (4.8-10.8)
[2024-08-08 06:17] LABS: Estimated Average Glucose 134 mg/dL; Hemoglobin A1C 99.7087 umol/L; Hemoglobin A1c % 6.3 % (<6.0)
[2024-08-08 06:27] LABS: Alanine Aminotransferase 8 U/L (0-31); Albumin Level 2.9 g/dL (3.5-5.0); Alkaline Phosphatase 71 U/L (39-117); Anion Gap 18 (12-20); Aspartate Amino Transferase 13 U/L (5-31); Bilirubin Total 0.3 mg/dL (0.0-1.0); Blood Urea Nitrogen 60 mg/dL (9-16); Calcium 8.4 mg/dL (8.4-10.2); Carbon Dioxide 22 mmol/L (22-29); Chloride 103 mmol/L (96-108); Glucose Random 79 mg/dL (60-115); Potassium 4.9 mmol/L (3.3-5.1); Sodium 138 mmol/L (135-145); Total Protein 5.8 g/dL (6.5-8.0)
[2024-08-08 07:09] LABS: Estimated Glomerular Filt Rate 10
== END 2024-08-08 05:41 | disposition home or self-care (01) ==
LOC: HO.MMNH2L 05:40
PROVIDERS: Visit Provider Student in an Organized Health Care Education/Training Program
DX: I10 Essential (primary) hypertension (principal); Z13.1 Encounter for screening for diabetes mellitus
CPT/HCPCS: 36415; 80053; 83036; 85025

== ENCOUNTER 2024-08-16 06:24 | Outpatient (REF) | payer MEDICARE, SELFPAY ==
--- OUTSIDE RECORDS SUMMARY | 2024-08-16 06:26 | XMS_ITS | Clinical Summary ---
Author Organization [facility] Address [address] [place] [address] Care Team Providers Care Physician Neonatology Name Role Phone GurpreetEloisa Primary Care Provider [phone] Allergies No known active allergies Medications Medication [...] age to complete this topic Care Teams Physician Neonatology Relationship Specialty Start Date End Date Eloisa Vázquez DO [address] [place] [address] PCP - General Internal Medicine 04/07/24
[2024-08-16 06:27] LABS: MANUAL DIFF FLAG NO
--- OUTSIDE RECORDS SUMMARY | 2024-08-16 06:28 | XMS_ITS | Encounter Summary ---
Author Organization [facility] Address [address] [place] [address] Care Team Providers Care Guest Service Supervisor Name Role Phone Eloisa Vázquez DO Primary Care Provider [phone] Reason for Visit * Reason Onset Date Comments Pre-op Visit 07/05/2024 Encounter Details Date Type Department Care Team (Late st Contact Info) Description 07/05/2024 Telephone [facility] - [facility] [address] 300 [facility] 154 [place] [address] Primo Navarro MD 300 [facility] [address] [place], [place] [phone] Pre-op Visit Social History Tobacco Use Types [...] Had some coronary calcifications on CT at [place] though without anginal symptoms don't feel strongly about need to start aspirin at this time as I doubt it would significantly alter her erin-op ID/CA risk. Currently Ríos Risk is ~1-2% but [...] Care Team (Late st Contact Info) Description 08/23/2024 3:00 PM EST Office Visit Gastroenterology - [address] [place] [address] Josiane Smith, LOT ATTENDANT [address] [place] [address] 08/24/2024 11:15 AM EST Office Visit Internal Medicine - [place] [address] [place] [address] Eloisa Vázquez, [address] [place] [address] 09/05/2024 10:00 AM EDT Office Visit Endocrinology - [place] [address] [place] [address] Kathy Michelle PA [address] [place] [address] 09/06/2024 11:00 AM EDT Ancillary Procedure [facility] - [address] [place] [phone] documented as of this encounter Visit Diagnoses Not on filedocumented in this encounter Additional Health Concerns Infection Onset Date Last Indicated Resolved Time Respiratory Rule-Out 07/08/2024 07/08/2024 025 4:18 PM EST COVID-19 Rule-Out 07/08/2024 07/08/2024 07/08/2024 4:18 PM EST documented as of this encounter Care Teams Guest Service Supervisor Relationship Specialty Start Date End Date Eloisa Vázquez DO [address] [place] [address] PCP - General 04/12/24 documented as of this encounter
--- OUTSIDE RECORDS SUMMARY | 2024-08-16 06:28 | XMS_ITS | Encounter Summary ---
Author Organization [facility] Address [address] [place] [address] Care Team Providers Care Stator Connector Name Role Phone Marie Vázquezmankamryn CHERY Primary Care Provider [phone] Reason for Visit * Reason Onset Date Comments Procedure 06/14/2024 [facility] , ct scan Encounter Details Date Type Department Care Team ([facility] Contact Info) Description 06/14/2024 Telephone Thoracic Surgery - [place] [address] [facility] [address] [place] [address] Cecily Montez MD [address] [facility] [address] [place], [place] [id number] Procedure ([facility] , ct scan) Social History [...] as inpatient ED Dennise can be reached [phone] Please advice * Cheyenne Evangelista - 07/13/2024 10:44 AM EST Spoke with patient son Paul and his aware of the new date. Paul requested a letter to be send him. * Cheyenne Evangelista - 07/05/2024 10:48 AM EST Patient is aware of surgery date and time, 07/14/24 post-op and all questions where answer . * Cheyenne Evangelista - 06/28/2024 11:53 AM EST No auth needed [employer] 06/28/25 * Cheyenne Evangelista - 06/24/2024 11:11 AM EST Patient is cleared for surgery 06/17 * Cheyennekaren Escobarila - 06/14/2024 1:20 PM EST Patient is [...] Office Visit Gastroenterology - [address] [facility] [address] [phone] Josiane Smith, BILL CHECKER [address] [facility] [address] [address] 08/24/2024 11:15 AM EST Office Visit Internal Medicine - [place] [address] [place] [address] Eloisa Vázquez DO [address] [place] [address] 09/05/2024 10:00 AM EDT Office Visit Endocrinology - [address] [phone] Kathy Michelle PA [address] [place] [address] 09/06/2024 11:00 AM EDT Ancillary Procedure [facility] [address] [place] [address] documented as of this encounter Visit Diagnoses Not on filedocumented in this encounter Additional Health Concerns Infection Onset Date Last Indicated Resolved Time Respiratory Rule-Out 07/08/2024 07/08/2024 025 4:18 PM EST COVID-19 Rule-Out 07/08/2024 07/08/2024 07/08/2024 4:18 PM EST documented as of this encounter Care Teams Stator Connector Relationship Specialty Start Date End Date Eloisa Vázquez DO [address] [place] [address] PCP - General 04/12/24 documented as of this encounter
--- OUTSIDE RECORDS SUMMARY | 2024-08-16 06:28 | XMS_ITS | Encounter Summary ---
Author Organization [facility] Address [address] [place] [address] Care Team Providers Care Market Director Name Role Phone Eloisa Vázquez DO Primary Care Provider [phone] Reason for Visit * Reason Comments Fall * Auth/Cert Specialty Diagnoses / Procedures Referred By Contac t Referred To Contact Diagnoses Acute encephalopathy Procedures . Wayne Donahue MD [address] [place] [phone] Phone: tel: fax: [facility] Emergency [address] [place] [address] Phone: tel: Referral ID Status Reason Start Date Expiration Date Visits Re quested Visits Authorized [id number] 1 1 Encounter Details Date Type Department Care Team (Late st Contact Info) Description 08/05/2024 11:30 AM EST - 08/05/2024 1:30 PM EST Surgery [facility] Main OR [address] [place] [address] Cecily Montez MD [address] [place] [phone] Navigation bronchoscopy/EBUS [50773 (CPT??) +2 more] Surgery Details Date/Time Status Location OR Service Patient Class Case Class Case Type Trauma Case? 08/05/2024 11:30 AM Posted [facility] OR OR 15 Thoracic Surgery Inpatient F - Elective Panel 1 Procedure LRB Anes Op Region Wound Class Comments Navigation bronchoscopy/EBUS N/A general Bronchus Class II/ Clean Contami nated Surgeon Surgeon Role Service Panel Cecily Montez MD Primary Thoracic Surgery 1 documented in this encounter Social History Tobacco [...] from the original note were not included. WITTMAN DISCHARGE SUMMARY Patient Information Ana Contreras : [...] was found down on the ground by [facility]. She was unsure the detailsof how [...] will be transferred to the care of [facility] staff for further management of their acute encephalopathy, fall. Hospital course Patient is 79 years old female with past medical history significant for type 2 diabetes, hypertension, chronic kidney disease stage IV, iron deficiency anemia, dyslipidemia, lung nodule brought to the [facility] after wellness check was called to police by her daughter. Patient was foundon the ground unable to get up and was confused. Patient admitted to medical floors for further management of chronic kidney disease, metabolic encephalopathy. # Acute on chronic kidney injury, crescentic glomerulonephritis requiring hemodialysis. -Patient is on hemodialysis Thursday. On prednisone, Bactrim every Thursday. Per family nurse practitioner patient's kidney biopsy consistent with crescentic glomerulonephritis. Rituximab given on 07/28/2024. Next dose in 2 weeks. Patient is being followed by family nurse practitioner for hemodia lysis. Upon DC continue oral [...] Follow-Up Instructions and Recommendations Eloisa Vázquez DO [address] [place] [address] Schedule an appointment as soon as possible for a visit in 3 day(s) for transition of care visit, If symptoms worsen, As needed Chencho Wayne MD [address] [facility] [address] Schedule an appointment as soon as possible for a visit in 1 week(s) for kidney failure management [address] [address] Discharge Procedure Orders Discharge Diet: [...] from the original note were not included. WITTMAN DISCHARGE SUMMARY Patient Information Ana Contreras : 1945 [79 y.o.] Admitting Provider Wayne Donahue MD Discharge Provider Steve Cruz MD, Steve Cruz MD Primary Care Physician Eloisa Vázquez, DO Admission Date 07/08/2024 Discharge Date 08/05/2024 [...] was found down on the ground by [facility]. She was unsure the detailsof how [...] will be transferred to the care of [facility] staff for further management of their acute encephalopathy, fall. Hospital course Patient is 79 years old female with past medical history significant for type 2 diabetes, hypertension, chronic kidney disease stage IV, iron deficiency anemia, dyslipidemia, lung nodule brought to the [facility] after wellness check was called to police by her daughter. Patient was foundon the ground unable to get up and was confused. Patient admitted to medical floors for further management of chronic kidney disease, metabolic encephalopathy. # Acute on chronic kidney injury, crescentic glomerulonephritis requiring hemodialysis. -Patient is on hemodialysis Thursday. On prednisone, Bactrim every Thursday. Per family nurse practitioner patient's kidney biopsy consistent with crescentic glomerulonephritis. Rituximab given on 07/28/2024. Next dose in 2 weeks. Patient is being followed by family nurse practitioner for hemodia lysis. Upon DC continue oral [...] and Recommendations Eloisa Vázquez DO [address] [facility] [address] Schedule an appointment as soon as possible for a visit in 3 day(s) for transition of care visit, If symptoms worsen, As needed Chencho Wayne MD [address] [place] [address] [facility] [phone] Schedule an appointment as soon as possible for a visit in 1 week(s) for kidney failure management [address] [address] Discharge Procedure Orders Discharge Diet: [...] through Care Everywhere. * Diabetes: Renal Diet (Turkish) documented in this encounter Medications at Time of Discharge apixaban (ELIQUIS) 5 mg tablet Take 2 tablets (10 mg total) by mouth 2 (two) times a day for 3 days, THEN 1 tablet (5 mg total) 2 (two) times a day. 08/06/2024 5 B complex-vitamin C-folic acid (NEPHRO-SAVITA) 0.8 mg tablet Take 1 tablet by mouth 1 (one) time each day. 08/06/2024 5 cetirizine (ZyrTEC) 10 mg chewable tablet Take [...] total) by mouth every morning with breakfast pantoprazole (PROTONIX) 40 mg EC tablet Take [...] tablet (600 mg total) by mouth daily 5 glipiZIDE (GLUCOTROL XL) 5 mg 24 hr tablet TAKE 2 TABLETS BY MOUTH IN THE MORNING AND TAKE 1 TABLET BY MOUTH IN THE AFTERNOON (WITH MEALS) 270 tablet 06/17/2024 5 documented as of this encounter Ordered [...] Disposition Code Departure Means Destination Comment s Jail Facility documented in this encounter Progress Notes * Jacquelin Davidson RN - 08/06/2024 1:04 PM EST Report given to ems, to transport to [facility]. * Chencho Wayne MD - 08/06/2024 11:15 AM EST Entered in error * Jacquelin Davidson RN - 08/06/2024 9:47 AM EST Goals: Identify possible barriers to meeting goals/advancing plan of care: Stability of the patient: Moderately Stable - Low risk of patient condition declining or worsening End of Shift Summary: D/c today [facility] @ 1pm * Tarsha Corea RN - 08/06/2024 7:23 AM EST 08/06/24 0722 Initial Transition Plan Initial Transition Plan Jail Facility ([facility]) Transportation Transportation at discharge Ambulance Company providing transportation [place] What day is the transport expected? 08/06/24 What time is the transport expected? 1300 Final Discharge Disposition Jail Facility * Katina Machuca RN - 08/06/2024 [...] was found down on the ground by [facility]. She was unsure the detailsof how [...] will be transferred to the care of [facility] staff for further management of their acute encephalopathy, fall. Hospital course Patient is 79 years old female with past medical history significant for type 2 diabetes, hypertension, chronic kidney disease stage IV, iron deficiency anemia, dyslipidemia, lung nodule brought to the [facility] after wellness check was called to police by her daughter. Patient was foundon the ground unable to get up and was confused. Patient admitted to medical floors for further management of chronic kidney disease, metabolic encephalopathy. # Acute on chronic kidney injury, crescentic glomerulonephritis requiring hemodialysis. -Patient is on hemodialysis Thursday. On prednisone, Bactrim every Thursday. Per family nurse practitioner patient's kidney biopsy consistent with crescentic glomerulonephritis. Rituximab given on 07/28/2024. Next dose in 2 weeks. Patient is being followed by family nurse practitioner for hemodia lysis. Upon DC continue oral [...] 1337 Initial Transition Plan Initial Transition Plan Jail Facility ([facility]) Transportation Transportation at discharge Ambulance Company [...] of Shift Summary: PLAN TO D/C TO [facility] TODAY * Louis Welch RN - 08/05/2024 [...] Ordered 08/05/24 0001 Adult NPO diet Location: [facility]; Diet: NPO- Except for Medications Diet effective midnight Question Answer Comment Location [facility] Diet NPO- Except for Medications 08/04/24 0838 07/11/24 1133 Dietary nutrition supplements Two times daily (BID); [facility]; Diabetic Supplement Continuous Question Answer Comment Frequency Two times daily (BID) Location [facility] Supplements Diabetic Supplement 07/11/24 1132 History [...] or fat depletion Skin: Skin intact per corn picker Nutrition Diagnosis: Code Type: None Identified Status: [...] weeks and will be tapered by the family nurse practitioner Continue PPI in the outpatient setting if patient is on prednisone Continue Bactrim DS in the outpatient setting thrice weekly () as patient is immunosuppressed Lung mass biopsy with Dr. Montez today s/p transfusion yesterday Outpatient HD arranged at [facility] 1st shift [phone] on hold since July 21. I have given orders for the patient to start on Thursday Patient for discharge to [facility] Discussed with medical team. Patient to get transfused today From renal standpoint patient can be discharged today or on Thursday The outpatient facility needs to arrange for rituximab infusion on August 11 or at [facility] outpatient infusion-they can touch base with the renal MD covering for [place] for that shift for orders and dosage Discussed with the medical team/outpatient dialysis nursing staff and high risk case manager history Chencho Wayne MD * [...] a 79 y.o. female : 1945 MR#: [id number] SUBJECTIVE Subjective Patient seen by the bedside [...] of fentanyl administered during the procedure. Scanner: [employer] [address] Dose reduction technique: AEC [...] Signed Date: 07/22/2024 17:00 ET Workstation ID: [id number] Transcribed By: Self Edit Transcribed Date: 07/22/2024 16:58 ET ASSESSMENT & PLAN Patient is 79 years old female with past medical history significant for type 2 diabetes, hypertension, chronic kidney disease stage IV, iron deficiency anemia, dyslipidemia, lung nodule brought to the [facility] after wellness check was called to police by her daughter. Patient was foundon the ground unable to get up and was confused. Patient admitted to medical floors for further management of chronic kidney disease, metabolic encephalopathy. # Acute on chronic kidney injury, crescentic glomerulonephritis requiring hemodialysis. -Patient is on hemodialysis Thursday. On prednisone, Bactrim every Thursday. Per family nurse practitioner patient's kidney biopsy consistent with crescentic glomerulonephritis. Rituximab given on 07/28/2024. Next dose in 2 weeks. Patient is being followed by family nurse practitioner for hemodia lysis. # Right upper lobe [...] -- 96 94* 95* CO2 mmol/L -- Phosphorus Date Value Ref Range Status 08/03/2024 [...] weeks and will be tapered by the family nurse practitioner Continue PPI in the outpatient setting if patient is on prednisone Continue Bactrim DS in the outpatient setting thrice weekly () as patient is immunosuppressed Lung mass biopsy with Dr. Montez tomorrow Renal diet Outpatient HD arranged at [facility] - 1st shift [phone] on hold since July 21. I have given orders for the patient to start on Thursday Patient for discharge to [facility] Discussed with medical team. Patient to get transfused today [facility] From renal standpoint patient can be discharged tomorrow or on Thursday The outpatient facility needs to arrange for rituximab infusion on August 11 or at [facility] outpatient infusion-they can touch base with the renal MD [facility] for that shift for orders and dosage Discussed with the medical team/outpatient dialysis nursing staff and high risk case manager Chencho Wayne MD * Isidra Florence - 08/04/2024 9:38 AM EST [facility] Physical Therapy Treatment PT Discharge Recommendations: Inpatient rehab facility placement, [facility] facility placement Equipment Recommended: rolling walker Staff Recommendations for safe patient handling: min/modA transfers/bed mob Precautions Medical Precautions: Fall Risk Safety Interventions: Call chavarria within reach, ID band on, Bed alarm RUE Weight Bearing Status: Full LUE Weight Bearing Status: Full RLE Weight Bearing Status: Full LLE Weight Bearing Status: Full History of Present Illness: Patient is a 79 y.o. female admitted to [facility] on 07/08/2024 with: Patient Active Problem List Diagnosis Hypertension Hyperlipidemia History of cancer of unknown primary site CKD (chronic kidney disease) stage 4, GFR 15-29 ml/min ([facility]) Iron deficiency anemia Impaired renal function Type 2 diabetes mellitus without complication, without long-term current use of insulin ([facility]) Lung mass Pulmonary nodule Fall prevention education provided including use of call light in hospital, use of appropriate assistive device, safe mobility techniques, and safety measures at home. Continue PT as per POC. Subjective Pt reports she was very nauseous last night and feels weak. Objective 08/04/24 0900 PT Last Visit PT Received On 08/04/24 PT Time Calculation PT Start Time 09 PT Stop Time 09 PT Time Calculation (min) 30 min Precautions [...] week PT Discharge Recommendations Inpatient rehab facility placement;[facility] facility placement Equipment Recommended rolling walker PT [...] PT Discharge Recommendations: Inpatient rehab facility placement, [facility] facility placement Equipment Recommended: rolling walker Barriers [...] 10:44 AM EST Associated attestation - Prisca Goldman PT - 08/04/2024 10:44 AM EST Pt was integrally and physically involved in the decision making, delivery of interventions, and ongoing assessment during the pt's care session. * Nalini Caceres RN - 08/04/2024 9:17 AM EST This quality analyst/technical writer received a call from [facility] at [facility] where they have had a dialysis STR bed open and are accepting and going for insurance auth. ICC notified provider and will follow for transfer once insurance auth obtained. * Nelli Schmidt OT - 08/04/2024 8:30 AM EST [facility] Occupational Therapy Treatment Note DATE: July TIME IN: 0830 TIME OUT: 0900 Pt: Ana Contreras [id number] DISCHARGE RECS: Inpatient rehab facility placement, [facility] facility placement EQUIPMENT RECS: Walker-rolling SAFE PT [...] Complete OT Discharge Recommendations Inpatient rehab facility placement;[facility] facility placement Equipment Recommended Walker-rolling ADDITIONAL COMMENTS: [...] Performance Level: Supervision Outcomes Date/Time User Outcome 08/01/242 Katina Mendez RN Not Progressing Problem: OT [...] Level: mod I Outcomes Date/Time User Outcome 08/01/242 Katina Mendez RN Not Progressing Encounter Problems [...] up Transition Plan Back up Transition plan Jail Facility Anticipated Discharge Needs Discipline following for SNF placement Graphic Art Technician DANITZA: 08/06 Barriers: Accepting SNF w HD, Bronch w lung mass bx re-scheduled 08/05, ability to stand/pivot for family to transport to HD. Plan: ACR vs SNF pending accepting facility with HD and or ability to transport to [facility]. [facility] can only continue to hold OPT HD slot until 08/05. ICC s/w family and updated on MARYSE options. Bill [facility] Graphic Art Technician, , called [facility] and will attempt to assist with MARYSE [...] a 79 y.o. female : 1945 MR#: [id number] SUBJECTIVE Subjective Patient seen by the bedside [...] of fentanyl administered during the procedure. Scanner: [employer] [address] Dose reduction technique: AEC [...] Signed Date: 07/22/2024 17:00 ET Workstation ID: [id number] Transcribed By: Self Edit Transcribed Date: 07/22/2024 16:58 ET ASSESSMENT & PLAN Patient is 79 years old female with past medical history significant for type 2 diabetes, hypertension, chronic kidney disease stage IV, iron deficiency anemia, dyslipidemia, lung nodule brought to the [facility] after wellness check was called to police by her daughter. Patient was foundon the ground unable to get up and was confused. Patient admitted to medical floors for further management of chronic kidney disease, metabolic encephalopathy. # Acute on chronic kidney injury, crescentic glomerulonephritis requiring hemodialysis. -Patient is on hemodialysis Thursday. On prednisone, Bactrim every Thursday. Per family nurse practitioner patient's kidney biopsy consistent with crescentic glomerulonephritis. Rituximab given on 07/28/2024. Next dose in 2 weeks. Patient is being followed by family nurse practitioner for hemodia lysis. # Right upper lobe [...] Montez Renal diet Outpatient HD arranged at [facility] m-w-f 1st shift [phone] on hold since July 21. We need to know before Thursday if he can give away the chair and patient disposition Consider [facility] or [facility] if going to [facility] Discussed with medical team. Patient to get transfused today Will follow [facility] w team If patient discharged before August [...] Isidra Florence - 08/02/2024 2:31 PM EST [facility] Physical Therapy Treatment PT Discharge Recommendations: Inpatient rehab facility placement, [facility] facility placement Equipment Recommended: rolling walker Staff [...] is a 79 y.o. female admitted to [facility] on 07/08/2024 with: Patient Active Problem List Diagnosis Hypertension Hyperlipidemia History of cancer of unknown primary site CKD (chronic kidney disease) stage 4, GFR 15-29 ml/min ([facility]) Iron deficiency anemia Impaired renal function Type 2 diabetes mellitus without complication, without long-term current use of insulin ([facility]) Lung mass Pulmonary nodule Fall prevention education [...] week PT Discharge Recommendations Inpatient rehab facility placement;[facility] facility placement Equipment Recommended rolling walker PT [...] PT Discharge Recommendations: Inpatient rehab facility placement, [facility] facility placement Equipment Recommended: rolling walker Barriers [...] a 79 y.o. female : 1945 MR#: [id number] SUBJECTIVE Subjective Patient seen by the bedside [...] of fentanyl administered during the procedure. Scanner: [employer] [address] Dose reduction technique: AEC [...] Signed Date: 07/22/2024 17:00 ET Workstation ID: [id number] Transcribed By: Self Edit Transcribed Date: 07/22/2024 16:58 ET ASSESSMENT & PLAN Patient is 79 years old female with past medical history significant for type 2 diabetes, hypertension, chronic kidney disease stage IV, iron deficiency anemia, dyslipidemia, lung nodule brought to the [facility] after wellness check was called to police by her daughter. Patient was foundon the ground unable to get up and was confused. Patient admitted to medical floors for further management of chronic kidney disease, metabolic encephalopathy. # Acute on chronic kidney injury, crescentic glomerulonephritis requiring hemodialysis. -Patient is on hemodialysis Thursday. On prednisone, Bactrim every Thursday. Per family nurse practitioner patient's kidney biopsy consistent with crescentic glomerulonephritis. Rituximab given on 07/28/2024. Next dose in 2 weeks. Patient is being followed by family nurse practitioner for hemodia lysis. # Right upper lobe pulmonary nodule -Noted by the previous provider. Patient has had CT-guided biopsy on 05/23/2024 which was nondiagnostic. Patient has been referred to thoracic surgery team and planned for endoscopy with EBUS. This has been scheduled for 07/27/2024 with thoracic surgery. This has been postponed and rescheduled to be done on 08/05/2024. Dr. Montez recommends holding Eliquis 48 hours prior to the procedure and okay to DC to rehab for now. # Left lower [...] RN, documentation and placing orders. * Nelli Schmidt, OT - 08/02/2024 1:35 PM EST [facility] Occupational Therapy Treatment Note DATE: Friday August 02, 2024 TIME IN: 1335 TIME OUT: 1405 Pt: Ana Contreras [id number] DISCHARGE RECS: Inpatient rehab facility placement, [facility] facility placement EQUIPMENT RECS: Walker-rolling SAFE PT [...] Complete OT Discharge Recommendations Inpatient rehab facility placement;[facility] facility placement Equipment Recommended Walker-rolling ADDITIONAL COMMENTS: [...] Performance Level: Supervision Outcomes Date/Time User Outcome 08/01/242 Katina Mendez RN Not Progressing Problem: OT [...] Level: mod I Outcomes Date/Time User Outcome 08/01/24Dorothy Mendez RN Not Progressing Encounter Problems (Resolved) [...] at 08/02/2024 1150 Last data filed at 08/01/20241999 Gross per 24 hour Intake 220 ml [...] Montez Renal diet Outpatient HD arranged at [facility] -w- 1st shift [phone]) Consider [facility] or [facility] if going to SNF Discussed with medical team. Patient to get transfused today Will follow [facility] w team Chencho Wayne MD * Katina [...] Montez Renal diet Outpatient HD arranged at [facility] - 1st shift [phone]) Consider [facility] or [facility] if [facility] SNF [facility] Anthony Norton MD * Steve Cruz MD - 08/01/2024 4:42 PM EST Images from the original note were not included. SONYA PROGRESS NOTE Date: 08/01/2024 Author: Steve Cruz MD Patient ID: Ana Contreras is a 79 y.o. female : 1945 MR#: [id number] SUBJECTIVE Subjective Patient seen by the bedside [...] of fentanyl administered during the procedure. Scanner: [employer] [address] Dose reduction technique: AEC [...] Signed Date: 07/22/2024 17:00 ET Workstation ID: [id number] Transcribed By: Self Edit Transcribed Date: 07/22/2024 16:58 ET ASSESSMENT & PLAN Patient is 79 years old female with past medical history significant for type 2 diabetes, hypertension, chronic kidney disease stage IV, iron deficiency anemia, dyslipidemia, lung nodule brought to the [facility] after wellness check was called to police by her daughter. Patient was foundon the ground unable to get up and was confused. Patient admitted to medical floors for further management of chronic kidney disease, metabolic encephalopathy. # Acute on chronic kidney injury, crescentic glomerulonephritis requiring hemodialysis. -Patient is on hemodialysis Thursday. On prednisone, Bactrim every Thursday. Per family nurse practitioner patient's kidney biopsy consistent with crescentic glomerulonephritis. Rituximab given on 07/28/2024. Next dose in 2 weeks. Patient is being followed by family nurse practitioner for hemodia lysis. # Right upper lobe [...] Camara, PT - 08/01/2024 11:00 AM EST [place], [place] Acute Care PT TREATMENT 08/01/2024 Patient Information Ana Contreras 1945 79 y.o. Ambulation: Walking Assistance: Minimum assistance Device: Rolling walker Distance Ambulated (ft): (5 steps to transfer bed to commode + 3 to 4 steps forward and 3 to 4 steps back with RW) PLOF: Level of Gilli[place]: Independent with mobility and functional transfers Lives [...] chair. rehab Mobility Training, taught by Florecita Camara, PT at 08/01/2024 [...] Therapeutic Activity Time Entry: 30 * Nelli Schmidt, OT - 08/01/2024 10:50 AM EST [facility] Occupational Therapy Treatment Note DATE: Thursday August 01, 2024 TIME IN: 1050 TIME OUT: 1125 Pt: Ana Contreras 561/[id number] DISCHARGE RECS: [facility] facility placement, Inpatient rehab facility placement EQUIPMENT [...] - Evaluation Status Complete OT Discharge Recommendations [facility] facility placement;Inpatient rehab facility placement Equipment Recommended [...] Level: mod I Outcomes Date/Time User Outcome 08/01/242 Katina Mendez RN Not Progressing Encounter Problems [...] onward) Start Ordered 07/27/24 1332 Adult diet [facility]; General; Renal- Chronic Kidney Disease; Self-Select Meals Diet effective now Question Answer Comment Location [facility] Diet Type (req) General General Diet Renal- Chronic Kidney Disease Is the patient able to participate in meal ordering? Self-Select Meals 07/27/24 1332 07/11/24 1133 Dietary nutrition supplements Two times daily (BID); [facility]; Diabetic Supplement Continuous Question Answer Comment Frequency Two times daily (BID) Location [facility] Supplements Diabetic Supplement 07/11/24 1132 History [...] at home. No noted food allergies. Appetite DELI WORKER: Poor Intake DELI WORKER: Decreased Weight History: Wt Readings from Last [...] reports improved PO intake since last visit. AIRCRAFT ENGINE MECHANIC OVERHAUL at bedside who confirmed she has been [...] or fat depletion Skin: Skin intact per corn picker Nutrition Diagnosis: Code Type: None Identified Status: [...] balance for safe completion of daily activities 08/01/2024 032 by Katina Altamirano RN Outcome: Not Progressing 08/01/2024252 by Katina Altamirano RN Outcome: Not Progressing Goal: Patient will maintain balance 08/01/2024 032 by Katina Altamirano RN Outcome: Not Progressing 08/01/2024252 by Katina Altamirano RN Outcome: Not Progressing Goal: Patient will maintain balance to allow for safe mobility 08/01/2024 032 by Katina Altamirano RN Outcome: Not Progressing 08/01/2024252 by Katina Altamirano RN Outcome: Not Progressing Goal: Patient will maintain standing and sitting balance to allow for completion of daily activities 08/01/2024 032 by Katina Altamirano RN Outcome: [...] Katina M, RN Outcome: Not Progressing Goal: Maintains dynamic [...] ambulate household distance 08/01/2024 032 by Katina Altamirano RN Outcome: Not Progressing 08/01/2024252 by Katina Altamirano RN Outcome: Not Progressing Goal: Patient will navigate 4-6 steps with rails/device 08/01/2024 032 by Katina Altamirano RN Outcome: Not Progressing 08/01/2024252 by Katina Altamirano RN Outcome: Not Progressing Goal: Patient will demonstrate safe mobility requirements 08/01/2024320 by Katina Altamirano RN Outcome: Not Progressing 08/01/2024252 by Katina Altamirano RN Outcome: Not Progressing Goal: Patient will propel the wheelchair 08/01/2024320 by Katina Altamirano RN Outcome: Not Progressing 08/01/2024252 by Katina Altaimrano RN Outcome: Not Progressing Goal: Patient will [...] Not Progressing Goal: Free from fall injury 08/01/2024 032 by Katina Altamirano RN Outcome: Not Progressing 08/01/2024252 by Katina Altamirano RN Outcome: Not Progressing Problem: Transfers Goal: Patient will transfer to car 08/01/2024320 by Katina Altamirano RN Outcome: Not Progressing 08/01/2024252 by Katina Altamirano RN Outcome: Not Progressing Goal: Patient will transfer from one surface to another 08/01/2024 032 by Katina Altamirano RN Outcome: Not Progressing 08/01/2024252 by Katina Altamirano RN Outcome: Not Progressing Goal: Patient will demonstrate safe transfer techniques 08/01/2024320 by Katina Altamirano, RN Outcome: Not Progressing 08/01/2024252 by Katina Altamirano RN Outcome: Not Progressing Goal: Patient will transfer to commode 08/01/2024320 by Katina Altamirano RN Outcome: Not Progressing 08/01/2024252 by Katina Altamirano RN Outcome: Not Progressing Goal: Patient will transfer to tub/shower 08/01/2024320 by Katina Altamirano RN Outcome: Not Progressing 08/01/2024252 by Katina Altamirano RN Outcome: Not Progressing Goal: Patient will transfer from wheelchair to toilet 08/01/2024320 by Katina Altamirano RN Outcome: Not Progressing 08/01/2024252 by Katina Altamirano RN Outcome: Not Progressing Goal: Transfer from bed to chair. 08/01/2024 032 by Katina Altamirano, RN Outcome: Not Progressing 08/01/2024252 by Katina Altamirano RN Outcome: Not Progressing Goal: Patient to transfer to and from sit to supine 08/01/2024 032 by Katina Altamirano RN Outcome: Not Progressing 08/01/2024252 by Katina Altamirano, RN Outcome: Not Progressing Goal: Patient will perform bed mobility 08/01/2024320 by Katina Altamirano, RN Outcome: Not [...] will perform toilet transfer 08/01/2024320 by Katina Altamirano RN Outcome: [...] acceptable level of pain 08/01/2024320 by Katina Altamirano, RN Outcome: [...] a 79 y.o. female : 1945 MR#: [id number] SUBJECTIVE Follow up:metabolic encephalopathy, renal failure requiring [...] of fentanyl administered during the procedure. Scanner: [employer] [address] Dose reduction technique: AEC [...] Fela Palomo Reviewed and Electronically Signed By: Stacia, Parshant Signed Date: 07/22/2024 17:00 ET Workstation ID: [id number] Transcribed By: Self Edit Transcribed Date: 07/22/2024 16:58 ET ASSESSMENT & PLAN Patient is an 79 woman with HTN, DM2, CKD 4, iron deficiency anemia, hyperlipidemia, and recent diagnosis of lung nodule with planned bronchoscopy and EBUS , she was brought to the [facility] ER on 07/08 after wellness [...] tomorrow Patient will need SNF with hemodialysis capability([facility] vs [facility]). [facility] already aware and referrals placed. [...] Specific Outcome Outcome: Progressing Problem: Cognitive: Tova Brock Fall Risk Goal: Last Known Fall [...] 02/14/2014 DX:Diabetes mellitus, type 2 ([facility]) DVT, lower extremity (CMS/[facility]) LEFT LEG Family history of early CAD [...] Montez Renal diet Outpatient HD arranged at [facility] - 1st shift [phone]) Consider Kana Jolene or Maribeth if going to [facility] Mindy Katz MD Cosigned by Miguel Quiles MD at 08/02/2024 2:08 PM EST * Jonny Mathur MD - 07/30/2024 12:28 PM EST Images from the original note were not included. SONYA PROGRESS NOTE Date: 07/30/2024 Author: Jonny Matuhr MD Patient ID: Ana Contreras is a 79 y.o. female : 1945 MR#: [id number] SUBJECTIVE Follow up:metabolic encephalopathy, renal failure w/renal [...] of fentanyl administered during the procedure. Scanner: [employer] [address] Dose reduction technique: AEC [...] Signed Date: 07/22/2024 17:00 ET Workstation ID: [id number] Transcribed By: Self Edit Transcribed Date: 07/22/2024 [...] Progressing Problem: Falls: Fall Risk (Adult IP ) [...] from the original note were not included. WITTMAN PROGRESS NOTE Date: 07/29/2024 Author: Jonny Mathur MD Patient ID: Ana Contreras is a 79 y.o. female : 1945 MR#: [id number] SUBJECTIVE Follow up:metabolic encephalopathy, renal failure requiring [...] of fentanyl administered during the procedure. Scanner: [employer] [address] Dose reduction technique: AEC [...] Signed Date: 07/22/2024 17:00 ET Workstation ID: [id number] Transcribed By: Self Edit Transcribed Date: 07/22/2024 [...] Intake/Output Summary (Last 24 hours) at 07/29/2024 2839 Last data filed at 07/29/2024 0730 Gross [...] Montez Renal diet Outpatient HD arranged at [facility] - 1st shift [phone]) Consider Kana Fernández or Maribeth if going to [facility] Miguel Quiles MD * Sharon Solis RN [...] a 79 y.o. female : 1945 MR#: [id number] SUBJECTIVE Follow up:metabolic encephalopathy, renal failure requiring [...] of fentanyl administered during the procedure. Scanner: [employer] [address] Dose reduction technique: AEC [...] Signed Date: 07/22/2024 17:00 ET Workstation ID: [id number] Transcribed By: Self Edit Transcribed Date: 07/22/2024 [...] Physical Therapy Therapy session was attempted for Manti A Contreras by Florecita Camara PT on 07/28/2024. The patient was unable to be seen for the following reason(s): Other: Per nurse, she was about to start new medicine for her. She asked to defer PT for today Plan for return visit: Tomorrow * Jules Woods OT - 07/28/2024 11:25 AM EST Therapy session was attempted for Ana Contreras by Jules Woods OT on 07/28/2024. [...] examined No complaints D/w medical attending D/w [facility] pathology MEDICAL HISTORY Past Medical History: [...] Montez Renal diet Outpatient HD arranged at [facility] -w-f 1st shift [phone]) Consider Kana Fernández or Maribeth if going to [facility] Miguel Quiles MD * Jonny Mathur MD - 07/27/2024 7:02 PM EST Images from the original note were not included. SONYA PROGRESS NOTE Date: 07/27/2024 Author: Jonny Mathur MD Patient ID: Ana Contreras is a 79 y.o. female : 1945 MR#: [id number] SUBJECTIVE Follow up:metabolic encephalopathy, renal failure requiring [...] of fentanyl administered during the procedure. Scanner: [employer] [address] Dose reduction technique: AEC [...] Signed Date: 07/22/2024 17:00 ET Workstation ID: [id number] Transcribed By: Self Edit Transcribed Date: 07/22/2024 [...] Ordered 07/27/24 0001 Adult NPO diet Location: [facility]; Diet: NPO- Except for Medications Diet effective midnight Question Answer Comment Location [facility] Diet NPO- Except for Medications 07/26/24 1755 07/11/24 1133 Dietary nutrition supplements Two times daily (BID); [facility]; Diabetic Supplement Continuous Question Answer Comment Frequency Two times daily (BID) Location [facility] Supplements Diabetic Supplement 07/11/24 1132 History [...] at home. No noted food allergies. Appetite DELI WORKER: Poor Intake DELI WORKER: Decreased Weight History: Wt Readings from Last [...] lung biopsy this morning. Currently NPO. Per corn picker, pt consuming 25-50% of meals since last [...] or fat depletion Skin: Skin intact per corn picker Nutrition Diagnosis: Code Type: None Identified Status: [...] mg daily PPI Bactrim DS thrice weekly (-W-) Lung mass biopsy which on Thursday07/27/[address] Montez Renal diet Outpatient HD arranged at [facility] m-w-f 1st shift [phone]) Consider Kana Fernández or Maribeth if going to [facility] Miguel Qiules MD * Katina Machuca RN - 07/27/2024 4:29 AM EST Goals: Problem: Falls: Fall Risk (Adult [facility]) Goal: (Goal) Patient will experience maximum safety [...] a 79 y.o. female : 1945 MR#: [id number] SUBJECTIVE Follow up:metabolic encephalopathy, renal failure requiring [...] of fentanyl administered during the procedure. Scanner: [employer] [address] Dose reduction technique: AEC [...] Signed Date: 07/22/2024 17:00 ET Workstation ID: [id number] Transcribed By: Self Edit Transcribed Date: 07/22/2024 [...] Fernández considering pending bed and HD slot. [facility] accepting w family to provide HD transportation support if Pt can get in/out of private vehicle. * Nithya Constantino, PT - 07/26/2024 8:45 AM EST Patient: Ana Contreras Age: 79 y.o. Sex: female Acute encephalopathy [facility] Physical Therapy RE-Evaluation Ambulation: Walking Assistance: Minimum [...] Distance Ambulated (ft): 3 PLOF: Level of Gilliam: Independent with mobility and functional transfers Lives With: Alone Type of Home: House Home Adaptive Equipment: Cane, Rollator Home Layout: One level Home Access: Stairs to enter without rails DME Needs: r walker PT Discharge Recommendation: Inpatient rehab facility placement, [facility] facility placement Reason for current recommendation based [...] Shower/Tub Tub/shower unit Prior Function Level of Gilliam Independent with mobility and functional transfers Ambulation [...] week PT Discharge Recommendations Inpatient rehab facility placement;[facility] facility placement Equipment Recommended r walker PT [...] mg daily PPI Bactrim DS thrice weekly (-W-) Lung mass biopsy which on Thursday07/27/[address] Montez Renal diet Outpatient HD arranged at [facility] -w-f 1st shift [phone]) Consider Kana Fernández or Maribeth if going to [facility] Miguel Quiles MD * Katina [...] a 79 y.o. female : 1945 MR#: [id number] SUBJECTIVE Follow up:metabolic encephalopathy, renal failure requiring [...] of fentanyl administered during the procedure. Scanner: [employer] [address] Dose reduction technique: AEC [...] Signed Date: 07/22/2024 17:00 ET Workstation ID: [id number] Transcribed By: Self Edit Transcribed Date: 07/22/2024 [...] Montez Renal diet Outpatient HD arranged at [facility] -- 1st shift [phone]) Consider Kana Fernández or Maribeth if going to [facility] Miguel Quiles MD * Tarsha Corea RN - 07/25/2024 8:45 AM EST DANITZA: 07/28 Barriers: Renal Bx 07/22 w/ path pending, new HD, trend labs, H/H, heparin drip- LLE DVT, repeat Pt eval, lung mass biopsy 07/27 Plan: 1st choice - [facility] or Maribeth d/t onsite HD. [facility] accepting w family to provide HD [...] remain negative. No signs of bleeding currently ICK Al RN - 07/24/2024 4:13 PM EST 07/24/24 1613 Back up Transition Plan Back up Transition plan Jail Facility Barriers to discharge: Renal Bx 07/22 path pending, new HD, trend labs, H/H, heparin drip-LLE DVT, repeat Pt eval, lung mass biopsy 07/27 Plan: [facility] accepting w family to provide HD transportation support. ICK Stuart MD - 07/24/2024 1:11 PM EST Images from the original note were not included. SONYA PROGRESS NOTE Date: 07/24/2024 Author: Lencho Stuart MD Patient ID: Ana Contreras is a 79 y.o. female : 1945 MR#: [id number] SUBJECTIVE CC: Follow-up renal failure No complaints. [...] SNF bed, anticoagulation/lung mass biopsy HCP: DaughterDennise. [phone] * Tony Golden MD - 07/24/2024 8:59 [...] 18 Units/kg/hr, Last Rate: 21 Units/kg/hr (07/23/24 1748) OBJECTIVE Vital signs in last 24 hours: [...] mg daily PPI Bactrim DS thrice weekly (-W-F) Hold apixaban- C/w heparingtt Renal diet IV [...] a 79 y.o. female : 1945 MR#: [id number] SUBJECTIVE CC: Follow-up renal failure Post procedure [...] methylPREDNISolone sod suc, 500 mg, intravenous, q24h GRSIELDA pantoprazole, 40 mg, oral, q AM AC [...] DC likely next week. HCP: Daughter, Dennise. [phone] ICK * Nelli Schmidt OT - 07/23/2024 [...] mmol/L 92* 95* 92* CO2 mmol/L 29 29 Phosphorus Date Value Ref Range [...] on IV pulse steroid REC Kidney biopsy [facility] - 5th treatment today Methylprednisolone 500 mg IV for [...] a 79 y.o. female : 1945 MR#: [id number] SUBJECTIVE CC: Follow-up renal failure Seen in [...] DC likely next week. HCP: Daughter, Dennise. [phone] * Kayleigh Laguna RD - 07/22/2024 12:44 [...] Ordered 07/22/24 0001 Adult NPO diet Location: [facility]; Diet: NPO- Except for Medications Diet effective midnight Question Answer Comment Location [facility] Diet NPO- Except for Medications 07/21/24 1326 07/11/24 1133 Dietary nutrition supplements Two times daily (BID); [facility]; Diabetic Supplement Continuous Question Answer Comment Frequency Two times daily (BID) Location [facility] Supplements Diabetic Supplement 07/11/24 1132 Food/Nutrition History: Previous Diet / Nutrition Education / Counseling: Per MST screeening, pt reports weight loss of 24-33 lb in past 3 months, and reports poor PO intake. Pt living by herself prior to admission, but hassupport from children. History of DM- takes glipizide at home. No noted food allergies. 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 Per IPR, Pulmonary IR stated possible intervention 07/27. Plan: STR pending accepting facility w HD support. * Nithya Constantino, PT - 07/22/2024 8:30 AM EST Patient: Ana A Contreras Age: 79 y.o. Sex: female Acute encephalopathy [facility] Physical Therapy Treatment Ambulation: Walking Assistance: Minimum assistance Walking Deficit: Steadying, Verbal cueing, Supervision/safety awareness, Increased time to complete, Assist for trunk control, Assist for weight shifting, Limited endurance, Impaired balance, LE weakness Device: Rolling walker Distance Ambulated (ft): 2 PLOF: Level of Gilliam: Independent with mobility and functional transfers Lives [...] No PT Time Calculation PT Start Time 0830 PT Stop Time 0905 PT Time Calculation (min) 35 min Precautions [...] Activity 3 sit to stand transfers at [facility], requiring only min assist for lift off and balance; she stood momentarily , but with c/o dizziness; after a seated rest, [facility] and took 4 steps sideways toward HOB in prep of supine, with assist to weight shiftand balance (pt was assisted back to bed due to dizziness which did not dissipate) PT Assessment PT Assessment Results Decreased strength;Decreased range of motion;Decreased endurance;Impaired balance;Impaired gait;Decreased mobility;Impaired vision;Other (Comment) (dizziness) Prognosis Good Medical Staff Made Aware Yes Plan PT Discharge Recommendations Inpatient rehab facility placement;[facility] facility placement Equipment Recommended r walker Barriers [...] 2 (HCC) DVT, lower extremity (CMS/[facility]) LEFT LEG Family history of early CAD [...] a 79 y.o. female : 1945 MR#: [id number] SUBJECTIVE CC: Follow-up renal failure Seen during [...] DC likely next week. HCP: Daughter, Dennise. [phone] * Louis Welch RN - 07/21/2024 12:55 [...] a 79 y.o. female : 1945 MR#: [id number] SUBJECTIVE CC: Follow-up renal failure Seen in [...] renal biopsy, pending SNF bed. HCP: DaughterDennise. [phone] * Miguel Quiles MD - 07/20/2024 12:09 [...] no accepting STR. Plan: STR * Nithya Constantino, PT - 07/20/2024 11:30 AM EST Patient: Ana Contreras Age: 79 y.o. Sex: female Acute encephalopathy [facility] Physical Therapy Treatment Ambulation: Walking Assistance: Moderate assistance Device: Rolling walker Distance Ambulated (ft): 2 PLOF: Level of Gilliam: Independent with mobility and functional transfers Lives [...] ble's) Therapeutic Activity 2 sit-stand transfers at [facility], mod assist to adjust posture, hand and foot posture, and to facilitate forward trunk over ISABELLE. Pt stood, supported at [facility] with mod assist, limited by ble weakness, [...] a 79 y.o. female : 1945 MR#: [id number] SUBJECTIVE CC: Follow-up RENE, DVT and encephalopathy [...] days. Barrier: Heparin, anemia HCP: Daughter, Dennise. [phone] * Jose Lujan RN - 07/19/2024 11:20 [...] for the MARTINEZ with improvement post medical assistant internal medicine. Pt's floorRN aware of leg pain and [...] Not Progressing Goal: Patient will maintain balance 07/19/2024245 by Katina Torres RN Outcome: Adequate for Discharge 07/19/2024 0242 by Katina Torres RN Outcome: Progressing 07/19/2024 0238 by Katina Torres RN Outcome: Not Progressing Goal: Patient will maintain balance to allow for safe mobility 07/19/2024 0246 by Katina Torres RN Outcome: Adequate for Discharge 07/19/2024 0242 by Katina Torres RN Outcome: Progressing 07/19/2024 0238 by Katina Torres RN Outcome: Progressing Goal: Patient will maintain standing and sitting balance to allow for completion of daily activities 07/19/2024 0246 by Katina Torres RN Outcome: Adequate for Discharge 07/19/2024 024 by Katina Torres RN Outcome: Not Progressing 07/19/2024 023 by Katina Torres RN Outcome: Not Progressing [...] a curb/step with the appropriate device 07/19/2024 024 by Katina Torres RN Outcome: Adequate for Discharge 07/19/2024241 by Katina Torres RN Outcome: Not Progressing 07/19/2024 023 by Katina Torres RN Outcome: Not Progressing Goal: Patient will propel wheelchair household/community distances 07/19/2024 024 by Katina Torres RN Outcome: Adequate for Discharge 07/19/2024 024 by Katina Torres RN Outcome: Not Progressing 07/19/2024 023 by Katina Torres RN Outcome: Adequate for Discharge Goal: Patient will demonstrate kitchen mobility 07/19/2024 024 by Katina Torres RN Outcome: Adequate for Discharge 07/19/2024 024 by Katina Torres RN Outcome: Not Progressing 07/19/2024 023 by Katina Torres RN Outcome: Not Progressing Goal: Patient will recall and demonstrate 3 out of 3 total hip precautions during mobility 07/19/2024 024 by Katina Torres RN Outcome: Adequate for Discharge 07/19/2024 024 by Katina Torres RN Outcome: Not Progressing Goal: Patient will ambulate community distance 07/19/2024 024 by Katina Torres RN Outcome: Adequate for Discharge 07/19/2024 024 by Katina Torres RN Outcome: Not Progressing 07/19/2024 0238 by Katina Torres RN Outcome: Not Progressing Goal: Patient will propel wheelchair household distances 07/19/2024 024 by Katina Torres RN [...] demonstrate safety requirements appropriate to situation/environment 07/19/2024 024 by Katina Torres RN Outcome: Adequate for Discharge 07/19/2024 024 by Katina Torres RN Outcome: Progressing 07/19/2024 0242 by Katina Torres RN Outcome: Progressing 07/19/2024 0238 by Katina Torres RN Outcome: Progressing Goal: Patient will utilize safety techniques 07/19/2024 024 by Katina Torres RN [...] Patient will demonstrate safe transfer techniques 07/19/2024 024 by Katina Torres RN [...] Outcome: Adequate for Discharge 07/19/2024 024 by Katnia Torres RN Outcome: Progressing Goal: Patient will perform car transfer 07/19/2024 024 by Katina Torres RN Outcome: Adequate for Discharge 07/19/2024 024 by Katina Torres RN Outcome: Progressing Goal: Patient will perform toilet transfer 07/19/2024 0246 by Katina Torres RN Outcome: Adequate for Discharge 07/19/2024 024 by Katina Torres RN Outcome: Progressing Goal: Patient will perform tub/shower transfer 07/19/2024 0246 by Katina Torres, RN Outcome: [...] 0242 by Katina Torres RN Outcome: Progressing Problem: Pain Goal: Patient will manage pain with the appropriate technique/Intervention 07/19/2024245 by Katina Torres RN Outcome: Adequate [...] Katina Torres RN Outcome: Adequate for Discharge 07/19/2024242 by Katina Torres RN Outcome: Progressing 07/19/2024241 by Katina Torres RN Outcome: Progressing 07/19/2024 023 by Katina Torres RN Outcome: Progressing Goal: Pain is manageable through therapies 07/19/2024245 by Katina Torres RN Outcome: Adequate for Discharge 07/19/2024242 by Katina Torres RN Outcome: Progressing 07/19/2024 024 by Katina Torres RN Outcome: Progressing 07/19/2024 023 by Katina Torres RN Outcome: Progressing Goal: Patient will verbalize an acceptable level of pain 07/19/2024245 by Katina Torres RN Outcome: Adequate for Discharge 07/19/2024 024 by Katina Torres RN Outcome: Progressing 07/19/2024 024 by Katina Torres, RN Outcome: Progressing 07/19/2024 0238 by Katina Torres RN Outcome: Progressing Goal: Patients pain is managed to allow active participation in daily activities 07/19/2024 024 by Katina Torres RN Outcome: Adequate for Discharge 07/19/2024242 by Katina Torres RN Outcome: Progressing 07/19/2024 024 by Katina Torres RN Outcome: Progressing 07/19/2024 023 by Katina Torres RN Outcome: Progressing Goal: Patient will increase activity level 07/19/2024 0246 by Katina Torres RN Outcome: Adequate for Discharge 07/19/2024 0242 by Katina Torres RN Outcome: Progressing 07/19/2024 0238 by Katina Torres RN Outcome: Progressing Goal: Patient verbalizes a reduction in pain level 07/19/2024 0246 by Katina Torres RN [...] Progressing Goal: Patient demonstrates skin care/treatment/dressing change 07/19/2024245 by Katina Torres RN Outcome: Adequate for Discharge 07/19/2024241 by Katina Torres RN Outcome: Progressing Goal: Patient will maintain good skin integrity 07/19/2024245 by Katina Torres RN Outcome: Adequate for Discharge 07/19/2024241 by Katina Torres RN Outcome: Progressing Goal: Patient exhibits signs of wound healing. 07/19/2024245 by Katina Torres RN Outcome: Adequate for Discharge 07/19/2024242 by Katina Torres RN Outcome: Progressing 07/19/2024241 [...] a 79 y.o. female : 1945 MR#: [id number] SUBJECTIVE CC: Follow-up RENE, DVT and encephalopathy [...] SNF over the next 1-3 days. HCP: DaughterDeninse. [phone] * Kayleigh Laguna RD - 07/18/2024 4:24 [...] onward) Start Ordered 07/17/24 1206 Adult diet [facility]; Cardiac, Diabetic; 60 gm carb/Meal; Cardiac Diet effective now Question Answer Comment Location [facility] Diet Type (req) Cardiac Diet Type (req) Diabetic Diabetic 60 gm carb/Meal Diet Type (cardiac) Cardiac 07/17/24 1205 07/11/24 1133 Dietary nutrition supplements Two times daily (BID); [facility]; Diabetic Supplement Continuous Question Answer Comment Frequency Two times daily (BID) Location [facility] Supplements Diabetic Supplement 07/11/24 1132 History [...] at home. No noted food allergies. Appetite DELI WORKER: Poor Intake DELI WORKER: Decreased Weight History: Wt Readings from Last [...] or fat depletion Skin: Skin intact per corn picker Nutrition Diagnosis: Code Type: None Identified Status: [...] drip, diaylsis, UTI Plan: SNF * Miguel Angeljose f Lemus - 07/18/2024 1:45 PM EST SPIRITUAL CARE Date/Time:07/18/24 at 1345 Type of Visit: Initial Visit and Professional Bass Fisher Rounding Reason for Visit: Spiritual/Emotional Support and Spiritual Assessment Time Spent: 25 Minutes Location: [address] [place] [address] Sacramental Encounters: Spiritual Distress Assessment: Spiritual Distress [...] and missed her two cats. Pt reportedbeing Pentecostalism while also reporting that she did not pray often. Professional Bass Fisher's suggestion to pray that evening was received [...] usually? Transcendence Do you have a particular worship, jimena, or spirituality? Is your worship/spirituality/jimena challenged by what is happening to you [...] 11/29/2014 DX:Decreased vision Diabetes mellitus, type 2 ([facility]) 02/14/2014 DX:Diabetes mellitus, type 2 ([facility]) Family history of early CAD 03/01/2014 DX:Family [...] MD - 07/17/2024 9:05 AM EST Ana Krysta Contreras 07/08/2024 1945 79 y.o. [id number] Kwesi Guido, * INTERVAL HISTORY: No events [...] Signed Date: 07/16/2024 12:33 ET Workstation ID: [id number] Transcribed By: Self Edit Transcribed Date: 07/16/2024 [...] - pending clinical improvement HCP -Daughter Dennise [phone], she was updated at bedside today. 45 minutes were spent in patient care including ekuq-wj-wmww time, chart review, discussion with providers, documentation, sales order processor. High complexity medical decision making. Health Care proxy with Phone number: Paul Contreras Jr (Son) Disclaimer: Speech recognition software was utilized to dictate portions of this document. Errors in aeroplane pilot may be present. Please call / cortext [...] EST Ana Contreras 07/08/2024 1945 79 y.o. [id number] Kwesi Guido, * INTERVAL HISTORY: No events [...] Signed Date: 07/16/2024 12:33 ET Workstation ID: [id number] Transcribed By: Self Edit Transcribed Date: 07/16/2024 [...] - pending clinical improvement HCP -Daughter Dennise [phone], she was updated at bedside today. 60 minutes were spent in patient care including tyaj-lw-ukmq time, chart review, discussion with providers, documentation, sales order processor. High complexity medical decision making. Health Care proxy with Phone number: Disclaimer: Speech recognition software was utilized to dictate portions of this document. Errors in aeroplane pilot may be present. Please call / cortext [...] 11/29/2014 DX:Decreased vision Diabetes mellitus, type 2 ([facility]) 02/14/2014 DX:Diabetes mellitus, type 2 ([facility]) Family history of early CAD 03/01/2014 DX:Family [...] 11/29/2014 DX:Decreased vision Diabetes mellitus, type 2 ([facility]) 02/14/2014 DX:Diabetes mellitus, type 2 ([facility]) Family history of early CAD 03/01/2014 DX:Family [...] currently at dialysis at this time. * Kwesiarcelia Guido MD - 07/15/2024 6:05 PM EST Ana Chaparro Contreras 07/08/2024 1945 79 y.o. [id number] Kwesi Guido, * INTERVAL HISTORY: No events [...] - pending clinical improvement HCP -Dr. Bowden [phone], she was updated at bedside today. Health Care proxy with Phone number: Disclaimer: Speech recognition software was utilized to dictate portions of this document. Errors in aeroplane pilot may be present. Please call / cortext [...] Isidra Florence - 07/14/2024 2:14 PM EST [facility] Physical Therapy Evaluation & Treatment PT Discharge Recommendations: USP facility placement Staff Recommendations for safe patient [...] is a 79 y.o. female admitted to [facility] on 07/08/2024. Patient Active Problem List Diagnosis Hypertension Hyperlipidemia History of cancer of unknown primary site CKD (chronic kidney disease) stage 4, GFR 15-29 ml/min ([facility]) Iron deficiency anemia Impaired renal function Type 2 diabetes mellitus without complication, without long-term current use of insulin ([facility]) Lung mass Acute encephalopathy Past Medical History: [...] Shower/Tub: Tub/shower unit Prior Function Level of Gilliam: Independent with mobility and functional transfers Ambulation [...] 1 time per day PT Discharge Recommendations USP facility placement Equipment Recommended walker PT - [...] is a 79 y.o. female admitted to [facility] on 07/08/2024 for Hyponatremia [E87.1] Acute [...] deficits listedabove and optimize function. PT recommends USP facility placement when medically stablefor safe discharge [...] 11/29/2014 DX:Decreased vision Diabetes mellitus, type 2 ([facility]) 02/14/2014 DX:Diabetes mellitus, type 2 ([facility]) Family history of early CAD 03/01/2014 DX:Family [...] NITRITEUA IMPRESSION and PLAN Acute kidney injury. ERNE likely due to acute tubular injury. She [...] EST Ana Contreras 07/08/2024 1945 79 y.o. [id number] Kwesi Guido, * INTERVAL HISTORY: No events [...] no reported vaginal discharge. OBJECTIVE: Vitals: 07/13/24200807/14/24 03307/14/24 0600 07/14/24 0817 BP: (!) 174/62 126/84 [...] 07/14/24 0607/13/24 0638 07/12/24 0619 07/11/24 0621 07/10/24 0516 [...] days Lab Units 07/14/24 0819 07/14/24 0600 07/13/243 07/13/24 1553 07/13/24 1058 POCT GLUCOSE mg/dL [...] performed without IV contrast. DLP: 613.10 mGy/cm VesselVanguard VCT Iterative reconstruction technique Findings: Respiratory motion [...] Small bilateral pleural effusions, new. Telerad RYLEY ([id number]) -------- FINAL REPORT -------- Dictated By: Edilia Durbin Dictated Date: 07/12/2024 13:07 ET Assigned Physician: Edilia Durbin Reviewed and Electronically Signed By: Edilia Durbin Signed Date: 07/12/2024 13:19 ET Workstation ID: [id number] Transcribed By: Self Edit Transcribed Date: 07/12/2024 [...] EKG showed sinus rhythm with first-degree AV blockright bundle branch block, QTc 454. CT head showed no acute intracranial abnormality CT neck showedno cervical spine fracture, and chest x-ray was [...] - pending clinical improvement HCP -Dr. Bowden [phone], she was updated at bedside today. Health Care proxy with Phone number: Disclaimer: Speech recognition software was utilized to dictate portions of this document. Errors in aeroplane pilot may be present. Please call / cortext [...] Melany Eugene RN Outcome: Progressing Goal: Maintains static standing balance with upper extremity support 07/13/2024 1720 by Melany Eugene RN Outcome: Progressing 07/13/2024 1720 by Melany Eugene RN Outcome: Progressing Goal: Maintains static standing balance without upper extremity support 07/13/2024 1720 by Melany Eugene, RN Outcome: Progressing 07/13/2024 1720 by Melany H, RN Outcome: Progressing Goal: Maintains static sitting balance with upper extremity support 07/13/2024 1720 by Melany Eugene RN Outcome: Progressing 07/13/2024 1720 by Melany Eugene RN Outcome: Progressing Goal: Maintains static sitting balance without upper extremity support 07/13/2024 1720 by Melany Eugene RN Outcome: Progressing 07/13/2024 1720 by Melany Eugene, RN Outcome: Progressing Goal: Maintains dynamic sitting balance with upper extremity support 07/13/2024 1720 by Melany Eugene RN Outcome: Progressing 07/13/2024 1720 by Melany Eugene RN Outcome: Progressing Goal: Maintains dynamic sitting [...] ambulate community distance 07/13/2024 1720 by Melany Eugene, RN Outcome: Progressing 07/13/2024 1720 by Melany Eugene RN Outcome: Progressing Goal: Patient will propel wheelchair household distances 07/13/2024 1720 by Melany Eugene, RN [...] 11/29/2014 DX:Decreased vision Diabetes mellitus, type 2 ([facility]) 02/14/2014 DX:Diabetes mellitus, type 2 ([facility]) Family history of early CAD 03/01/2014 DX:Family [...] 7 days Lab Units 07/13/24 0638 07/12/24 0607/11/24 06 WBC AUTO K/mcL 20.6* 21.8* 18.4* HEMOGLOBIN [...] -Review of spot urine for electrolytes protein [id number]-[id number]-EB Q [place] is not clearly pointing towards significant prerenal [...] No indication today They agree to have INSPECTION SUPERVISOR if she needs it Discussed with the medical team in detail about the patient Chencho Wayne MD * Kwesi Guido MD - 07/13/2024 10:44 AM EST Manti A Ben 07/08/2024 1945 79 y.o. [id number] Kwesi Guido, * INTERVAL HISTORY: No events [...] 7 days Lab Units 07/13/24 0638 07/12/24 0607/11/24 0607/10/24 0516 WBC AUTO K/mcL 20.6* 21.8* 18.4* [...] - pending clinical improvement HCP -Dr. Bowden [phone], she was updated at bedside today. Health Care proxy with Phone number: Disclaimer: Speech recognition software was utilized to dictate portions of this document. Errors in aeroplane pilot may be present. Please call / cortext me if any questions. Portions of this note such ROS, Exam, Assessment and Plan were copy pasted from previous notes. Information was reviewed and changes were made accordingly. I agree with above mentioned information * Kayleigh Laguna RD - 07/13/2024 9:53 AM EST 07/13/2024 @ [...] Dietary nutrition supplements Two times daily (BID); [facility]; Diabetic Supplement Continuous Question Answer Comment Frequency Two times daily (BID) Location [facility] Supplements Diabetic Supplement 07/11/24 1132 07/11/24 1133 Adult diet [facility]; Cardiac, Diabetic; 75 gm carb/Meal; No Added Salt Diet effective now Question Answer Comment Location [facility] Diet Type (req) Cardiac Diet Type (req) Diabetic Diabetic 75 gm carb/Meal Diet Type (cardiac) No Added Salt 07/11/24 1132 History of presenting illness: Patient is a 79 y.o. female with a history of Past Medical History: Diagnosis Date Anemia Arthritis Blindness Decreased vision 11/29/2014 DX:Decreased vision Diabetes mellitus, type 2 ([facility]) 02/14/2014 DX:Diabetes mellitus, type 2 ([facility]) Family [...] at home. No noted food allergies. Appetite DELI WORKER: Poor Intake DELI WORKER: Stable Weight History: Wt Readings from Last [...] or fat depletion Skin: Skin intact per corn picker Nutrition Diagnosis: Code Type: None Identified Status: [...] Guido MD - 07/12/2024 11:47 PM EST [facility] Provider Response Note PATIENT: ANA CONTRERAS : 1945 ADMIT DATE: 07/08/2024 2:44 PM DISCH DATE: RESPONDING PROVIDER #: [id number] PROVIDER RESPONSE TEXT: The patient has metabolic encephalopathy. QUERY TEXT: Encephalopathy is documented in the medical record. Please specify the type. H&P 07/08/2024 (3) Patient will be transferred to the care of [facility] staff for further management of their acute [...] Ana Chaparro Contreras 07/08/2024 1945 79 y.o. [id number] Kwesi Guido, * INTERVAL HISTORY: No events [...] with her daughter at bedside. OBJECTIVE: Vitals: 07/11/24199907/12/24 0349 07/12/24 0555 07/12/24 0805 BP: (!) [...] Results from last 7 days Lab Units 07/12/2461807/11/2462007/10/24 0516 07/09/24 0625 WBC AUTO K/mcL 21.8* 18.4* 16.9* 18.4* HEMOGLOBIN g/dL 7.2* 7.4* 7.6* 8.3* HEMATOCRIT % 22.6* 23.7* 24.4* 26.1* PLATELETS K/mcL 206 211 277 333 LYMPHS PCT AUTO % 2.7 3.0 3.2 2.8 MONO PCT AUTO % 5.8 5.9 5.9 6.1 EOS PCT AUTO % 2.8 3.3 2.8 1.1 Results from last 7 days Lab Units 07/12/24 0607/11/24 0621 07/10/24 0516 07/09/24 0625 07/08/24 1752 [...] Signed Date: 07/10/2024 14:08 ET Workstation ID: [id number] Transcribed By: Self Edit Transcribed Date: 07/10/2024 [...] lactated Ringer's, Last Rate: 100 mL/hr (07/12/24 6407) ASSESSMENT/PLAN: Mrs. Contreras is a 79 y.o. [...] - pending clinical improvement HCP -Dr. Bowden [phone], she was updated at bedside today. Health Care proxy with Phone number: Disclaimer: Speech recognition software was utilized to dictate portions of this document. Errors in aeroplane pilot may be present. Please call / cortext [...] Ana Chaparro Contreras 07/08/2024 1945 79 y.o. [id number] Kwesi Guido, * INTERVAL HISTORY: No events [...] Units 07/11/24 0621 07/10/24 0516 07/09/24 0625 01/10202907/08/24 1110 WBC AUTO K/mcL 18.4* 16.9* 18.4* [...] Units 07/11/24 0621 07/10/24 0516 07/09/24 0625 07/08/24202907/08/24 17507/08/24 1110 SODIUM mmol/L 130* 133 131* [...] Signed Date: 07/10/2024 14:08 ET Workstation ID: [id number] Transcribed By: Self Edit Transcribed Date: 07/10/2024 [...] - pending clinical improvement HCP -Dr. Bowden [phone] Her son Paul was updated at bedside with her permission Health Care proxy with Phone number: Disclaimer: Speech recognition software was utilized to dictate portions of this document. Errors in aeroplane pilot may be present. Please call / cortext me if any questions. Portions of this note such ROS, Exam, Assessment and Plan were copy pasted from previous notes. Information was reviewed and changes were made accordingly. I agree with above mentioned information * Kwesi Guido MD - 07/11/2024 5:44 PM EST [facility] Provider Response Note PATIENT: ANA CONTRERAS : 1945 ADMIT DATE: 07/08/2024 2:44 PM DISCH DATE: RESPONDING PROVIDER #: [id number] PROVIDER RESPONSE TEXT: The patient has traumatic [...] already improved Chencho Wayne MD * Denisse Elmore, OT - 07/11/2024 8:34 AM EST [facility] Occupational Therapy Evaluation DATE: Thursday July 11, 2024 TIME IN: 0730 TIME OUT: 0820 Pt: Ana Contreras ROOM: 561/561-2 Discharge Recommendation: USP facility Equipment Recommendation: walker Staff recommendations for [...] is a 79 y.o. female admitted to [facility] on 07/08/2024. Occupational Therapy evaluation and treatment ordered to assess ADL independence, safety, and functional mobility for discharge planning. Patient Active Problem List Diagnosis Hypertension Hyperlipidemia History of cancer of unknown primary site CKD (chronic kidney disease) stage 4, GFR 15-29 ml/min ([facility]) Iron deficiency anemia Impaired renal function Type 2 diabetes mellitus without complication, without long-term current use of insulin ([facility]) Lung mass Acute encephalopathy Past Medical History: Diagnosis Date Anemia Arthritis Blindness Decreased vision 11/29/2014 DX:Decreased vision Diabetes mellitus, type 2 ([facility]) 02/14/2014 DX:Diabetes mellitus, type 2 ([facility]) Family history of early CAD 03/01/2014 DX:Family [...] - Evaluation Status: Complete OT Discharge Recommendations: USP facility placement, Home OT Equipment Recommended: Walker-standard, [...] Goldman PT - 07/10/2024 2:37 PM EST [facility] Physical Therapy Evaluation & Treatment PT Discharge Recommendations: USP facility placement Staff Recommendations for safe patient [...] is a 79 y.o. female admitted to [facility] on 07/08/2024. Patient Active Problem List Diagnosis Hypertension Hyperlipidemia History of cancer of unknown primary site CKD (chronic kidney disease) stage 4, GFR 15-29 ml/min ([facility]) Iron deficiency anemia Impaired renal function Type 2 diabetes mellitus without complication, without long-term current use of insulin ([facility]) Lung mass Acute encephalopathy Past Medical History: Diagnosis Date Anemia Arthritis Blindness Decreased vision 11/29/2014 DX:Decreased vision Diabetes mellitus, type 2 ([facility]) 02/14/2014 DX:Diabetes mellitus, type 2 ([facility]) Family history of early CAD 03/01/2014 DX:Family [...] of Steps: 3 Prior Function Level of Gilliam: Independent with mobility and functional transfers Ambulation [...] of Steps 3 Prior Function Level of Gilliam Independent with mobility and functional transfers Ambulation [...] 1 time per day PT Discharge Recommendations USP facility placement PT - Evaluation Status Complete [...] is a 79 y.o. female admitted to [facility] on 07/08/2024 for Hyponatremia [E87.1] Acute [...] listed above and optimize function. PT recommends USP facility placement when medically stable for safe [...] a 79 y.o. female : 1945 MR#: [id number] SUBJECTIVE CC: Here with fall, RENE, hyponatremia [...] Signed Date: 07/09/2024 09:03 ET Workstation ID: [id number] Transcribed By: Self Edit Transcribed Date: 07/09/2024 [...] - pending clinical improvement HCP -Dr. Bowden [phone] -I met with her at the bedside on 07/09/24 and reviewed the plan. * Tarsha Corea RN - 07/09/2024 10:22 AM EST 07/09/24 1021 Initial Transition Plan Initial Transition Plan Jail Facility Back up Transition Plan Back up Transition plan Home Health Care Discharge Planning Living Arrangements Alone Type of Residence Private residence Assistive Devices Walker;Cane;Eyeglasses;Dentures upper Support Systems Extended family;Children Anticipated Discharge Needs Home Health RN;PT;OT Discipline following for SNF placement Graphic Art Technician ICC confirmed demographics fern Bowden, daughter. Barriers: Legally blind, s/p found down, rene, rhabdo, anemia w transfusion, IVF, trend labs, PT, elevated glucose Dispo: VNA and STR referrals initiated per Pt Choice. Pt lives alone w family support. Interested in community resources, SW consulted * Maria Alejandra Melendez MD - 07/09/2024 8:29 AM EST Images from the original note were not included. [facility] PROGRESS NOTE Date: 07/09/2024 Author: Maria Alejandra Melendez MD Patient ID: Ana Contreras is a 79 y.o. female : 1945 MR#: [id number] SUBJECTIVE CC: Here with fall, RENE, hyponatremia [...] Signed Date: 07/08/2024 14:07 ET Workstation ID: [id number] Transcribed By: Self Edit Transcribed Date: 07/08/2024 [...] Signed Date: 07/08/2024 12:27 ET Workstation ID: [id number] Transcribed By: Self Edit Transcribed Date: 07/08/2024 [...] Signed Date: 07/08/2024 12:23 ET Workstation ID: [id number] Transcribed By: Self Edit Transcribed Date: 07/08/2024 [...] Dispo -pending clinical improvement HCP -Dr. Bowden [phone] -I met with her at the bedside [...] infectious concerns): [] Yes / [x] No Nuclear Plant Instrument Technician: [] Yes / [x] No If YES, Cardiac Rhythm: [] NSR, [] SB, [] ST, [] A-FIB, [] A-Flutter, [] Pacemaker, [] 1st Degree HB, [] 2nd Degree HB, [] 3rd Degree HB Reason for Nuclear Plant Instrument Technician: VS: Visit Vitals BP (!) 148/62 (BP [...] and [place] Extension: [place] [phone] * Michelle Christie RN - 07/08/2024 3:51 PM EST 07/08/24 3266 Initial Transition Plan Initial Transition Plan Jail Facility Back up Transition Plan Back up Transition plan Home Health Care Discharge Planning Contact (Name, Phone #, Relationship) for DC Planning Dennise N[place] daughter [phone] Living Arrangements Alone Type of Residence Private residence (apartment with 6 steps to enter/no elevator) Assistive Devices Walker;Cane Support Systems Children;Extended family Medication Coverage Has Med Coverage Under Insurance Plan Yes Anticipated Discharge Needs Home Health PT;RN Discipline following for SNF placement Graphic Art Technician Patient lives alone in a first floor [...] for wide VNA and STR including: [facility] and placed in Epic. HCP completed and [...] - 07/08/2024 10:32 AM EST Pt to [facility]. Unwitnessed mechanical fall this am. [...] REFLEX MICROSCOPIC AND CULTURE - Abnormal Specific Linch Urine 1.020 pH, Urine 5.5 Leukocytes, Urine [...] Procedure Abnormality Status --------- ------ CBC auto differential[[id number]] Abnormal Final result Please view results for these tests on the individual orders. TROPONIN I HIGH SENSITIVITY URINALYSIS WITH REFLEX MICROSCOPIC AND CULTURE Narrative: The following orders were created for panel order Urinalysis with reflex microscopic and culture. Procedure Abnormality Status --------- ------ Urinalysis with reflex ...[[id number]] Abnormal Final result Robertson urine culture tube[[id number]] In process Please view results for these [...] Signed Date: 07/08/2024 12:27 ET Workstation ID: [id number] Transcribed By: Self Edit Transcribed Date: 07/08/2024 12:[address] Head wo Contrast Final Result NO ACUTE INTRACRANIAL ABNORMALITY. -------- FINAL REPORT -------- Dictated By: GLENNA SOLITARIO Dictated Date: 07/08/2024 12:22 ET Assigned Physician: GLENNA SOLITARIO Reviewed and Electronically Signed By: GLENNA SOLITARIO Signed Date: 07/08/2024 12:23 ET Workstation ID: [id number] Transcribed By: Self Edit Transcribed Date: 07/08/2024 [...] - 08/05/2024 10:58 AM EST Plan for [facility] EBUS. Source Note - RYLEY Harris - 07/13/2024 10:28 AM EST Patient currently admitted to [facility] for RENE and anemia. Possible need for HD. Will cancel her lance bronch/EBUS scheduled 07/14/24 and reschedule in the next couple weeks. * RYLEY Rivas - 07/08/2024 3:39 PM EST Images from the original note were not included. [facility]ON[facility] HISTORY AND PHYSICAL Please contact author [RYLEY Rivas] via [employer]. Patient: Ana Contreras Admission Date/Time: 07/08/2024 10:31 [...] was found down on the ground by [facility]. She was unsure the details of [...] will be transferred to the care of [facility] staff for further management of their acute [...] Signed Date: 07/08/2024 14:07 ET Workstation ID: [id number] Transcribed By: Self Edit Transcribed Date: 07/08/2024 14:[address] Cervical Spine wo Contrast Final Result No acute cervical spine fracture. -------- FINAL REPORT -------- Dictated By: GLENNA SOLITARIO Dictated Date: 07/08/2024 12:24 ET Assigned Physician: GLENNA SOLITARIO Reviewed and Electronically Signed By: GLENNA SOLITARIO Signed Date: 07/08/2024 12:27 ET Workstation ID: [id number] Transcribed By: Self Edit Transcribed Date: 07/08/2024 12:[address] Head wo Contrast Final Result NO ACUTE INTRACRANIAL ABNORMALITY. -------- FINAL REPORT -------- Dictated By: GLENNA SOLITARIO Dictated Date: 07/08/2024 12:22 ET Assigned Physician: GLENNA SOLITARIO Reviewed and Electronically Signed By: GLENNA SOLITARIO Signed Date: 07/08/2024 12:23 ET Workstation ID: [id number] Transcribed By: Self Edit Transcribed Date: 07/08/2024 [...] onward) Start Ordered 07/08/24 1438 Adult diet [facility]; General; Regular Diet effective now Question Answer Comment Location [facility] Diet Type (req) General General Diet Regular 07/08/24 1444 [x] Lines, tubes, drains: IV access [x] Medication reconciliation Health Care proxy with Phone number Dennise Nj daughter [phone] Cosigned by Wayne Donahue MD at 07/15/2024 [...] L4, and 11R. Surgeon: Cecily Montez MD Tracer Bullet Charging Machine Operator: None Specimens: Above for pathology/cytology/microbiology Anesthesia: General [...] the appropriate places and confirmed with the super dimension software. At this point, a timeout [...] Insertion of 18g/10cm Bard Powerglide midline Lot: [id number] Exp: 2025-05-28 Indications: Difficult draw with frequent [...] Fela Palomo MD Staff Role Emilie Silva Insurance Writer Dorothea Garay Insurance Writer Lay Roth Insurance Writer Diaz Denise RN CV Invasive Nurse Fela Palomo MD Radiologist [...] onward) Start Ordered 07/08/24 1438 Adult diet [facility]; General; Regular Diet effective now Question Answer Comment Location [facility] Diet Type (req) General General Diet Regular 07/08/24 1444 History of presenting illness: Patient is a 79 y.o. female with a history of Past Medical History: Diagnosis Date Anemia Arthritis Blindness Decreased vision 11/29/2014 DX:Decreased vision Diabetes mellitus, type 2 ([facility]/HCC) 02/14/2014 DX:Diabetes mellitus, type 2 (HCC) Family [...] at home. No noted food allergies. Appetite DELI WORKER: Poor Intake DELI WORKER: Decreased Weight History: Wt Readings from Last [...] stable between 168-178 lb over past year ([id number] lb). Weight in 12/2022 was 184 lb indicating 10 lb (5.4%) weight loss over course of 18 months. Subjective Assessment: Pt seen for nutrition consult/ high MST score. Pt admitted for fall, RENE and hyponatremia. Pt recently diagnosed with lung nodule with planned bronchoscopy and EBUS. Seen by OT and PT- recommending discharge to snf facility. No meals recorded since admission; appetite [...] focused physical exam Skin: Skin intact per corn picker Nutrition Diagnosis: Code Type: None Identified Status: [...] mellitus type [address] 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 Family History Problem Relation Name Age of [...] 7 days Lab Units 07/10/24 0516 07/09/24 0607/[id number]/242029 WBC AUTO K/mcL 16.9* 18.4* 20.5* HEMOGLOBIN [...] should gradually improve, can get input from family nurse practitioner, please call me for an y question documented in this encounter Plan of Treatment Upcoming Encounters Date Type Department Care Team (Late st Contact Info) Description 08/23/2024 3:00 PM EST Office Visit Gastroenterology - [address] [facility] [address] [place] [address] Josiane Smith, DIRECTOR ORACLE DATABASE [address] [facility] [address] [place] [address] 08/24/2024 11:15 AM EST Office Visit Internal Medicine - [facility] [address] [place] [address] Eloisa Vázquez DO [address] [place] [address] 09/05/2024 10:00 AM EDT Office Visit Endocrinology - [place] [address] [place] [address] Kathy Michelle PA [address] [place] [address] 09/06/2024 11:00 AM EDT Ancillary Procedure [facility] - [facility] [address] [facility] [address] [place] [address] Pending Results Name Type Priority Associated Diagnoses Date/Time Transfuse RBC: 1 Units Transfusion Administration Routine 08/02/2024 6:27 PM EST Transfuse RBC Transfusion Administration Routine 08/02/2024 6:26 PM EST Culture fungal, other Microbiology Routine Pulmonary nodule 08/05/2024 12:32 PM EST Culture, afb and smear with reflex to identification and susceptibility Microbiology Routine Pulmonary nodule 08/05/2024 12:32 PM EST documented as of this encounter Procedures Procedure [...] 08/05/19 25 12:32 PM EST Pulmonary nodule CULTURE FUNGAL, OTHER Routine 08/05/2024 12:32 PM EST Pulmonary nodule XR CHEST 1 VIEW Routine 08/05/2024 12:29 PM EST NON-GYNECOLOGIC CYTOLOGY Routine 025 12:20 PM EST Pulmonary nodule ND BRONCHOSCOPY RIGID/FLEXIBLE W/EBUS >=3 MEDIASTINAL/HILAR LYMPH NODES 08/05/2024 11:46 AM EST Pulmonary nodule ND BRONCHOSCOPY INCL FLUROSCOPIC GUIDANCE W PLCMNT FIDUCIAL MARKER SGL/MULT 08/05/2024 11:46 AM EST Pulmonary nodule ND BRONCHOSCOPY RIGID/FLEXIBLE INCL FLUORO W/THERAPY ASPIRATION INITIAL 08/05/2024 11:46 AM EST Pulmonary nodule BASIC METABOLIC PANEL STAT [...] PERC LEFT Routine 07/22/2024 3:53 PM EST AP KIDNEY BIOPSY Routine 07/22/2024 3:13 PM EST Hyponatremia Acute on chronic renal insufficiency Bilateral leg edema TISSUE EXAM Routine 07/22/2024 3:13 PM EST Hyponatremia Acute on chronic renal insufficiency Bilateral leg edema PROTHROMBIN TIME WITH INR Add-On 07/22/2024 11:00 [...] BLOOD Routine 07/11/2024 8: 17 AM EST ND IMMUNOFIXATION ELECTROPHORESIS SERUM Routine 07/11/2024 6:21 AM [...] BLOOD Routine 07/08/2024 6: 19 PM EST ND PROTEIN ELECTROPHORETIC FRACTIONATION & QUANTITATION SERUM Routine [...] ECG 12-LEAD STAT 07/08/2024 10:46 AM EST ECG OUTSIDE 07/08/2024 ECG ANNOTATED 07/08/2024 documented in this encounter Results * (ABNORMAL) POCT Glucose, blood (08/06/2024 11:07 AM EST) Glucose POCT 187(H) 70 - 100 mg/dL 08/06/2024 11:09 AM EST [facility] ([facility] Blood Capillary blood specimen / Unknown 08/06/2024 11:07 AM EST 08/06/2024 11:10 AM EST Steve Cruz MD LAB POINT OF CA RE TEST DOCKED DEVICE UNSOLICITED RESULTS Final Result [facility] [address] [place] [address], [place] [phone] * (ABNORMAL) POCT Glucose, blood (08/06/2024 7:26 AM EST) Glucose POCT 66(L) 70 - 100 mg/dL 08/06/2024 7:27 AM EST [facility] Blood Capillary blood specimen / Unknown 08/06/2024 7:26 AM EST 08/06/2024 7:28 AM EST us Steve Cruz MD LAB POINT OF CA RE TEST DOCKED DEVICE UNSOLICITED RESULTS Final Result Performing Organization Address [facility]/ZIP Co de Phone Number [facility] [address] [place] [address], * (ABNORMAL) POCT Glucose, blood (08/05/2024 8:08 PM EST) Glucose POCT 263(H) 70 - 100 mg/dL 08/05/2024 8:08 PM EST [facility] Blood Capillary blood specimen / Unknown 08/05/2024 8:08 PM EST 08/05/2024 8:09 PM EST Steve Cruz MD LAB POINT OF CA RE TEST DOCKED DEVICE UNSOLICITED RESULTS Final Result [facility] [address] [place] [address], [place] [phone] * (ABNORMAL) POCT Glucose, blood (08/05/2024 4:40 PM EST) Glucose POCT 270(H) 70 - 100 mg/dL 08/05/2024 4:42 PM EST [facility] Blood Capillary blood specimen / Unknown 08/05/2024 4:40 PM EST 08/05/2024 4:43 PM EST Steve Cruz MD LAB POINT OF CA RE TEST DOCKED DEVICE UNSOLICITED RESULTS Final Result [facility] [address] [place] [address], [place] [phone] * XR Chest 1 View (08/05/2024 1:43 [...] Signed Date: 08/05/2024 13:49 ET Workstation ID: [id number] Transcribed By: Self Edit Transcribed Date: 08/05/2024 [...] Signed Date: 08/05/2024 13:49 ET Workstation ID: [id number] Transcribed By: Self Edit Transcribed Date: 08/05/2024 13:46 ET Cecily Montez MD IMG XR PROCEDURES Final Result * (ABNORMAL) POCT Glucose, blood (08/05/2024 1:40 PM EST) Glucose POCT 148(H) 70 - 100 mg/dL 08/05/2024 1:41 PM EST [facility] Blood Capillary blood specimen / Unknown 08/05/2024 1:40 PM EST 08/05/2024 1:42 PM EST Steve Curz MD LAB POINT OF CA RE TEST DOCKED DEVICE UNSOLICITED RESULTS Final Result Performing Organization Address City/[facility]/ZIP Co de Phone Number [facility] [address] [place] [address], * Concentration (08/05/2024 12:32 PM EST) Pathologist [facility] AFB Concentration Performed 025 3:05 PM EST [facility] Structure of upper lobe of right lung / Unknown 08/05/2024 12:32 PM EST 08/05/2024 1:17 PM EST Narrative [facility] - 08/06/2024 3:05 PM EST Performed at: ??01 - [facility] [address] ??[id number] Cardiac Catheterization Technician: Diane Belle MD, Phone: ??[phone] Cecily Montez MD LAB BLOOD ORDERABLES Final Resul t [facility] * Acid fast bacilli stain (08/05/2024 12:32 PM EST) AFB Stain Result No Acid fast bacilli seen on direct smear (Fuchsin method, 1000x) No Acid Fast Bacilli seen on direct smear 08/05/2024 2:18 PM EST [facility] Wash Structure of upper lobe of right lung / Unknown 08/05/2024 12:32 PM EST 08/05/2024 1:17 PM EST us Cecily Montez MD LAB MICROBIOLOGY - GENERAL ORDER SYLVAIN Final Result Performing Organization Address [facility] de Phone Number [facility] [address] [place] [address], [place] [phone] * Culture bronchial with gram stain (08/05/2024 12:32 PM EST) Bronchial Culture No growth at 3 days 08/08/2024 9:42 AM EST [facility] Gram Stain Result No polymorphonuclear leukocytes, No epithelial cells, and No organisms noted 08/08/2024 9:42 AM EST [facility] Wash Structure of upper lobe of right lung / Unknown 08/05/2024 12:32 PM EST 08/05/2024 1:17 PM EST us Cecily Montez MD LAB MICROBIOLOGY - GENERAL ORDER SYLVAIN Final Result Performing Organization Address [facility] de Phone Number [facility] [address] [place] [address], [place] [phone] * XR Chest 1 View (08/05/2024 12:29 PM EST) Anatomical Region Laterality Modality Body Radio Fluoroscop y 08/08/2024 7:50 AM EST Narrative 08/08/2024 7:52 AM EST Fluoroscopic spot radiographs obtained during navigational bronchoscopic biopsy are submitted. No radiologist consultation was requested or provided during this procedure and there is no radiologist professional charge. This report is generated for documentation purposes only. The dose for this procedure was 20.71 mGy. PQRI CPT II G9500 -------- FINAL REPORT -------- Dictated By: Vin Josue Dictated Date: 08/08/2024 07:50 ET Assigned Physician: Vin Josue Reviewed and Electronically Signed By: Vin Josue Signed Date: 08/08/2024 07:52 ET Workstation ID: [id number] Transcribed By: Self Edit Transcribed Date: 08/08/2024 07:50 ET Procedure Note Vin Josue MD - 08/08/2024 Fluoroscopic spot radiographs obtained during navigational bronchoscopicbiopsy are submitted. No radiologist consultation was requested orprovided during this procedure and there is no radiologist professionalcharge. This report is generated for documentation purposes only. The dose for this procedure was 20.71 mGy. PQRI CPT II G9500 -------- FINAL REPORT -------- Dictated By: Vin Josue Dictated Date: 08/08/2024 07:50 ET Assigned Physician: Vin Josue Reviewed and Electronically Signed By: Vin Josue Signed Date: 08/08/2024 07:52 ET Workstation ID: [id number] Transcribed By: Self Edit Transcribed Date: 08/08/2024 07:50 ET Cecily Montez MD IMG XR PROCEDURES Final Result * Non-gynecologic cytology (08/05/2024 12:20 PM EST) Final Diagnosis A. Lung, Right Upper Lobe Nodule, fine needle aspiration, (ThinPrep, cell block): -FEW BENIGN BRONCHIAL CELLS -Negative for malignancy B. Lung, Right Upper Lobe, bronchial brushing, (ThinPrep, cell block): -Negative for malignant cells. C. Lung, Right Upper Lobe, bronchial washing, (ThinPrep, cell block): -FEW ATYPICAL GLANDULAR CELLS, SUSPICIOUS BUT NOT DIAGNOSTIC OF NEOPLASIA D. Mediastinum, Right paratracheal lymph node, (ThinPrep, cell block): -Negative for malignant cells. -Benign lymph node elements present. E. Mediastinum, Left paratracheal lymph node, (ThinPrep, cell block): -Non-diagnostic. -Blood and few degenerated bronchial cells -No lymph node elements identified. F. Lymph node, 11R, (ThinPrep, cell block): -Negative for malignant cells. -Benign lymph node elements present. 08/09/2024 1:04 PM [facility] Specimen A Adequacy Satisfactory for evaluation 08/09/2024 1:04 PM [facility] Specimen B Adequacy Satisfactory for evaluation 08/09/2024 1:04 PM [facility] Specimen C Adequacy Satisfactory for evaluation 08/09/2024 1:04 PM [facility] Specimen D Adequacy Satisfactory for evaluation 08/09/2024 1:04 PM [facility] Specimen E Adequacy Specimen processed and examined, but unsatisfactory for eval of abnormal epithelial 08/09/2024 1:04 PM [facility] Specimen F Adequacy Satisfactory for evaluation 08/09/2024 1:04 PM [facility] Gross Description A. Lung, Right Upper Lobe, (Alnce bronch) Right upper lobe nodule: Received in Cytolyt 30 ml of light pink fluid; 1 ThinPrep,1 cell block Cell block in formalin @3:00-total formalin fixation time 54 hours. B. Lung, Right Upper Lobe, Right upper lobe nodule brushing: Received in Cytolyt 30 ml of clear fluid; 1 ThinPrep, 1 cell block Cell block in formalin @3:00-total formalin fixation time 54 hours. With brush C. Lung, Right Upper Lobe, Right upper lobe nodule washing: Received 45 ml of light pink fluid; 1 ThinPrep, 1 Cell block Cell block in formalin @3:00-total formalin fixation time 54 hours. D. Mediastinum, (EBUS) Right paratracheal lymph node: Received in Cytolyt 30 ml of light pink fluid; 1 ThinPrep, 1 cell block Cell block in formalin @3:00-total formalin fixation time 54 hours. E. Mediastinum, (EBUS) Left paratracheal lymph node: Received in Cytolyt 30 ml of light red fluid; 1 ThinPrep,1 cell block Cell block in formalin @3:00-total formalin fixation time 54 hours. F. Lung, Right Upper Lobe, (EBUS) 11R lymph node: Received in Cytolyt 30 ml of clear fluid; 1 ThinPrep,1 cell block Cell block in formalin @3:00-total formalin fixation time 54 hours. 08/09/2024 1:04 PM EST [facility] Disclaimer Unless otherwise specified, all tissue is 10% NB formalin fixed and paraffin embedded. Technical cytopathology services provided by [facility], at [address] [place] [address] (CLIA # [id number]/Gladys Prince MD, Director Of Maternity Services.) 08/09/2024 1:04 PM EST [facility] Brushing, function (observable entity) Structure of upper lobe of right lung / Unknown 08/05/2024 12:27 PM EST 08/05/2024 2:26 PM EST Specimen obtained by lavage (specimen) Structure of upper lobe of right lung / Unknown 08/05/2024 12:30 PM EST 08/05/2024 2:27 PM EST Specimen obtained by fine needle aspiration procedure (specimen) Structure of upper lobe of right lung / Unknown 08/05/2024 12:20 PM EST 08/05/2024 2:24 PM EST Specimen obtained by fine needle aspiration procedure (specimen) Mediastinal structure / Unknown 08/05/2024 12:38 PM EST 08/05/2024 2:29 PM EST Specimen obtained by fine needle aspiration procedure (specimen) Mediastinal structure / Unknown 08/05/2024 12:44 PM EST 08/05/2024 2:32 PM EST Specimen obtained by fine needle aspiration procedure (specimen) Structure of upper lobe of right lung / Unknown 08/05/2024 12:50 PM EST 08/05/2024 2:31 PM EST us Ceciyl Montez MD LAB CYTOLOGY ORDERABLES Final Re sult [facility]) [facility] [address] [place] [address], * (ABNORMAL) Basic metabolic panel (08/05/2024 7:04 AM EST) Sodium 133 133 - 145 mmol/L LAB CHEMISTRY METHOD 08/05/2024 8:01 AM [facility] Potassium 4.5 3.5 - 5.5 mmol/L LAB CHEMISTRY METHOD 08/05/2024 8:01 AM [facility] Chloride 96 96 - 110 mmol/L LAB CHEMISTRY METHOD 08/05/2024 8:01 AM [facility] CO2 32 21 - 32 mmol/L LAB CHEMISTRY METHOD 08/05/2024 8:01 AM [facility] Anion Gap 5 3 - 11 LAB CHEMISTRY METHOD 08/05/2024 8:01 AM [facility] Glucose 138(H) 70 - 100 mg/dL LAB CHEMISTRY METHOD 08/05/2024 8:01 AM [facility] BUN 53(H) 5 - 25 mg/dL LAB CHEMISTRY METHOD 08/05/2024 8:01 AM [facility] Creatinine 3.91(H) 0.50 - 1.10 mg/dL LAB CHEMISTRY METHOD 08/05/2024 8:01 AM [facility] eGFR 11(L) >=60 mL/min/1. 73m2 LAB CHEMISTRY METHOD 08/05/2024 8:01 AM [facility] Comment:Calculation based on the??Chronic Kidney Disease Epidemiology Collaboration (CKD-EPI) equation refit??without adjustment for race. BUN/Creatinine Ratio 13.6 LAB CHEMISTRY METHOD 08/05/2024 8:01 AM [facility] Calcium 8.4(L) 8.5 - 10.5 mg/dL LAB CHEMISTRY METHOD 08/05/2024 8:01 AM [facility] Blood Venous blood specimen / Unknown Venipuncture / Unknown 08/05/2024 7:04 AM EST 08/05/2024 7:34 AM EST Steve Cruz MD LAB BLOOD ORDERABLES Fi nal Result [facility] [address] [place] [address], * (ABNORMAL) CBC - Every 3 Days (08/05/2024 7:03 AM EST) [facility] WBC 8.8 4.8 - 10.8 K/mcL LAB HEMETOLOGY METHOD 08/05/2024 7:42 AM [facility] RBC 2.90(L) 3.80 - 4.80 M/mcL LAB HEMETOLOGY METHOD 08/05/2024 7:42 AM [facility] Hemoglobin 7.9(L) 11.5 - 16.0 g/dL LAB HEMETOLOGY METHOD 08/05/2024 7:42 AM [facility] Hematocrit 25.5(L) 35.0 - 47.0 % LAB HEMETOLOGY METHOD 08/05/2024 7:42 AM [facility] MCV 87.6 79.0 - 98.0 FL LAB HEMETOLOGY METHOD 08/05/2024 7:42 AM [facility] MCH 27.1 27.0 - 32.0 pcg LAB HEMETOLOGY METHOD 08/05/2024 7:42 AM [facility] MCHC 31.0(L) 32.0 - 37.0 g/dL LAB HEMETOLOGY METHOD 08/05/2024 7:42 AM [facility] RDW 21.9(H) 11.0 - 15.0 % LAB HEMETOLOGY METHOD 08/05/2024 7:42 AM [facility] Platelets 180 130 - 400 K/mcL LAB HEMETOLOGY METHOD 08/05/2024 7:42 AM [facility] MPV 10.8 7.0 - 11.0 FL LAB HEMETOLOGY METHOD 08/05/2024 7:42 AM [facility] NRBC 0.0 <1.0 % LAB HEMETOLOGY METHOD 08/05/2024 7:42 AM EST [facility] NRBC Absolute 0.00 <0.10 K/mcL LAB HEMETOLOGY METHOD 08/05/2024 7:42 AM EST [facility] Blood Venous blood specimen / Unknown Venipuncture / Unknown 08/05/2024 7:03 AM EST 08/05/2024 7:34 AM EST Lencho Stuart MD LAB BLOOD ORDERABLES Final R esult Performing Organization Address City/[facility]/ZIP Co de Phone Number [facility] [address] [place] [address], [place] [phone] * (ABNORMAL) POCT Glucose, blood (08/04/2024 8:39 PM EST) Glucose POCT 352(H) 70 - 100 mg/dL 08/04/2024 8:40 PM EST [facility] Blood Capillary blood specimen / Unknown 08/04/2024 8:39 PM EST 08/04/2024 8:41 PM EST us Steve Cruz MD LAB POINT OF CA RE TEST DOCKED DEVICE UNSOLICITED RESULTS Final Result Performing Organization Address City/[facility]/ZIP Co de Phone Number [facility] [address] [place] [address], [place] [phone] * (ABNORMAL) POCT Glucose, blood (08/04/2024 5:36 PM EST) Glucose POCT 376(H) 70 - 100 mg/dL 08/04/2024 5:37 PM EST [facility] Blood Capillary blood specimen / Unknown 08/04/2024 5:36 PM EST 08/04/2024 5:38 PM EST us Steve Cruz MD LAB POINT OF CA RE TEST DOCKED DEVICE UNSOLICITED RESULTS Final Result Performing Organization Address [facility]/ZIP Co de Phone Number [facility] [address] [place] [address], * (ABNORMAL) POCT Glucose, blood (08/04/2024 11:05 AM EST) Glucose POCT 130(H) 70 - 100 mg/dL 08/04/2024 11:07 AM EST [facility] Blood Capillary blood specimen / Unknown 08/04/2024 11:05 AM EST 08/04/2024 11:08 AM EST us Steve Cruz MD LAB POINT OF CA RE TEST DOCKED DEVICE UNSOLICITED RESULTS Final Result Performing Organization Address [facility] Co de Phone Number [facility] [address] [place] [address], * (ABNORMAL) POCT Glucose, blood (08/04/2024 8:03 AM EST) Glucose POCT 116(H) 70 - 100 mg/dL 08/04/2024 8:05 AM EST [facility] Blood Capillary blood specimen / Unknown 08/04/2024 8:03 AM EST 08/04/2024 8:07 AM EST us Steve Cruz MD LAB POINT OF CA RE TEST DOCKED DEVICE UNSOLICITED RESULTS Final Result Performing Organization Address City/[facility]/ZIP Co de Phone Number [facility] [address] [place] [address], * (ABNORMAL) Creatinine, Serum - Every 7 Days (08/04/2024 6:31 AM EST) Creatinine 2.49(H) 0.50 - 1.10 mg/dL LAB CHEMISTRY METHOD 08/04/2024 7:31 AM EST [facility] eGFR 19(L) >=60 mL/min/1. 73m2 LAB CHEMISTRY METHOD 08/04/2024 7:31 AM EST [facility] Comment:Calculation based on the??Chronic Kidney Disease Epidemiology Collaboration (CKD-EPI) equation refit??without adjustment for race. Blood Venous blood specimen / Unknown Venipuncture / Unknown 08/04/2024 6:31 AM EST 08/04/2024 6:54 AM EST Jonny Mathur MD LAB BLOOD ORDERABLES Final Re sult Performing Organization Address City/[facility]/ZIP Co de Phone Number [facility] [address] [place] [address], [place] [phone] * (ABNORMAL) POCT Glucose, blood (08/03/2024 9:59 PM EST) Glucose POCT 135(H) 70 - 100 mg/dL 08/03/2024 9:59 PM EST [facility] Blood Capillary blood specimen / Unknown 08/03/2024 9:59 PM EST 08/03/2024 10:00 PM EST us Steve Cruz MD LAB POINT OF CA RE TEST DOCKED DEVICE UNSOLICITED RESULTS Final Result [facility] [address] [place] [address], [place] [phone] * (ABNORMAL) POCT Glucose, blood (08/03/2024 3:47 PM EST) Glucose POCT 304(H) 70 - 100 mg/dL 08/03/2024 3:48 PM EST [facility] Blood Capillary blood specimen / Unknown 08/03/2024 3:47 PM EST 08/03/2024 3:49 PM EST us Steve Cruz MD LAB POINT OF CA RE TEST DOCKED DEVICE UNSOLICITED RESULTS Final Result Performing Organization Address [facility]/ZIP Co de Phone Number [facility] [address] [place] [address], [place] [phone] * (ABNORMAL) POCT Glucose, blood (08/03/2024 12:35 PM EST) Glucose POCT 125(H) 70 - 100 mg/dL 08/03/2024 12:59 PM EST [facility] Blood Capillary blood specimen / Unknown 08/03/2024 12:35 PM EST 08/03/2024 1:00 PM EST us Steve Cruz MD LAB POINT OF CA RE TEST DOCKED DEVICE UNSOLICITED RESULTS Final Result Performing Organization Address [facility] de Phone Number [facility] [address] [place] [address], [place] [phone] * Hepatitis B surface antigen with reflex to confirmation (08/03/2024 8:49 AM EST) Pathologist [facility] Hepatitis B Surface Ag Negative Negative LAB CHEMISTRY METHOD 08/03/2024 10:11 AM EST [facility] Blood Venous blood specimen / Unknown Venipuncture / Unknown 08/03/2024 8:49 AM EST 08/03/2024 9:22 AM EST Narrative [facility] - 08/03/2024 10:11 AM EST Over the counter supplements containing high doses of biotin may interfere with this assay. ??If interference is suspected, patients shoud be retested after refraining from biotin supplements for 72 hours. us Steve Cruz MD LAB BLOOD ORDERABLES Fi nal Result Performing Organization Address [facility] Co de Phone Number [facility] [address] [place] [address], [place] [phone] * Hepatitis B surface antibody quantitative (08/03/2024 8:49 AM EST) [facility] [address] Hepatitis B Surface Ab Negative Negative LAB CHEMISTRY METHOD 08/03/2024 9:59 AM [facility] Hepatitis B Surface Ab Quantitative <3.1 mIU/mL LAB CHEMISTRY METHOD 08/03/2024 9:59 AM [facility] Blood Venous blood specimen / Unknown Venipuncture / Unknown 08/03/2024 8:49 AM EST 08/03/2024 9:22 AM EST [facility] - 08/03/2024 9:59 AM EST >=10 mIU/mL is considered to be consistent with immunity. Steve Cruz MD LAB BLOOD ORDERABLES Fi nal Result [facility] [address] [place] [address], * (ABNORMAL) Complete blood count (08/03/2024 8:49 AM EST) [facility] [address] WBC 8.5 4.8 - 10.8 K/mcL LAB HEMETOLOGY METHOD 08/03/2024 9:28 AM [facility] LAB RBC 2.90(L) 3.80 - 4.80 M/mcL LAB HEMETOLOGY METHOD 08/03/2024 9:28 AM [facility] LAB Hemoglobin 7.7(L) 11.5 - 16.0 g/dL LAB HEMETOLOGY METHOD 08/03/2024 9:28 AM [facility] LAB Hematocrit 24.6(L) 35.0 - 47.0 % LAB HEMETOLOGY METHOD 08/03/2024 9:28 AM [facility] LAB MCV 84.2 79.0 - 98.0 FL LAB HEMETOLOGY METHOD 08/03/2024 9:28 AM [facility] LAB MCH 26.4(L) 27.0 - 32.0 pcg LAB HEMETOLOGY METHOD 08/03/2024 9:28 AM EST [facility] MCHC 31.3(L) 32.0 - 37.0 g/dL LAB HEMETOLOGY METHOD 08/03/2024 9:28 AM EST [facility] RDW 21.8(H) 11.0 - 15.0 % LAB HEMETOLOGY METHOD 08/03/2024 9:28 AM EST [facility] Platelets 186 130 - 400 K/mcL LAB HEMETOLOGY METHOD 08/03/2024 9:28 AM EST [facility] MPV 10.5 7.0 - 11.0 FL LAB HEMETOLOGY METHOD 08/03/2024 9:28 AM [facility] LAB NRBC 0.0 <1.0 % LAB HEMETOLOGY METHOD 08/03/2024 9:28 AM [facility] LAB NRBC Absolute 0.00 <0.10 K/mcL LAB HEMETOLOGY METHOD 08/03/2024 9:28 AM [facility] Blood Venous blood specimen / Unknown Venipuncture / Unknown 08/03/2024 8:49 AM EST 08/03/2024 9:22 AM EST Steve Cruz MD LAB BLOOD ORDERABLES Fi nal Result [facility] [address] [place] [address], * (ABNORMAL) CBC auto differential (08/03/2024 6:01 AM EST) [facility] Signature WBC 7.5 4.8 - 10.8 K/mcL LAB HEMETOLOGY METHOD 08/03/2024 7:49 AM EST [facility] RBC 2.90(L) 3.80 - 4.80 M/mcL LAB HEMETOLOGY METHOD 08/03/2024 7:49 AM [facility] Hemoglobin 7.8(L) 11.5 - 16.0 g/dL LAB HEMETOLOGY METHOD 08/03/2024 7:49 AM [facility] LAB Hematocrit 24.7(L) 35.0 - 47.0 % LAB HEMETOLOGY METHOD 08/03/2024 7:49 AM [facility] LAB MCV 85.8 79.0 - 98.0 FL LAB HEMETOLOGY METHOD 08/03/2024 7:49 AM [facility] LAB MCH 27.1 27.0 - 32.0 pcg LAB HEMETOLOGY METHOD 08/03/2024 7:49 AM [facility] LAB MCHC 31.6(L) 32.0 - 37.0 g/dL LAB HEMETOLOGY METHOD 08/03/2024 7:49 AM [facility] LAB RDW 21.6(H) 11.0 - 15.0 % LAB HEMETOLOGY METHOD 08/03/2024 7:49 AM [facility] LAB Platelets 188 130 - 400 K/mcL LAB HEMETOLOGY METHOD 08/03/2024 7:49 AM [facility] LAB MPV 11.2(H) 7.0 - 11.0 FL LAB HEMETOLOGY METHOD 08/03/2024 7:49 AM [facility] LAB NRBC 0.0 <1.0 % LAB HEMETOLOGY METHOD 08/03/2024 7:49 AM [facility] LAB NRBC Absolute 0.00 <0.10 K/mcL LAB HEMETOLOGY METHOD 08/03/2024 7:49 AM [facility] LAB Neutrophils Relative 77.2 % LAB HEMETOLOGY METHOD 08/03/2024 7:49 AM [facility] LAB Lymphocytes Relative 12.8 % LAB HEMETOLOGY METHOD 08/03/2024 7:49 AM EST [facility] Monocytes Relative 8.0 % LAB HEMETOLOGY METHOD 08/03/2024 7:49 AM [facility] Eosinophils Relative 0.4 % LAB HEMETOLOGY METHOD 08/03/2024 7:49 AM [facility] Basophils Relative 0.1 % LAB HEMETOLOGY METHOD 08/03/2024 7:49 AM [facility] Immature Granulocytes Relative 1.5 % LAB HEMETOLOGY METHOD 08/03/2024 7:49 AM [facility] Neutrophils Absolute 5.78 1.50 - 7.00 K/mcL LAB HEMETOLOGY METHOD 08/03/2024 7:49 AM [facility] Lymphocytes Absolute 0.96(L) 1.00 - 5.00 K/mcL LAB HEMETOLOGY METHOD 08/03/2024 7:49 AM [facility] Monocytes Absolute 0.60 0.20 - 1.00 K/mcL LAB HEMETOLOGY METHOD 08/03/2024 7:49 AM [facility] Eosinophils Absolute 0.03 0.00 - 0.50 K/mcL LAB HEMETOLOGY METHOD 08/03/2024 7:49 AM [facility] Basophils Absolute 0.01 0.00 - 0.20 K/mcL LAB HEMETOLOGY METHOD 08/03/2024 7:49 AM [facility] Immature Granulocytes Absolute 0.11(H) 0.00 - 0.03 K/mcL LAB HEMETOLOGY METHOD 08/03/2024 7:49 AM [facility] Blood Venous blood specimen / Unknown Venipuncture / Unknown 08/03/2024 6:01 AM EST 08/03/2024 7:27 AM EST Steve Cruz MD LAB BLOOD ORDERABLES Fi nal Result [facility] [address] [place] [address], * Magnesium (08/03/2024 6:01 AM EST) [facility] [address] Magnesium 2.1 1.9 - 2.6 mg/dL LAB CHEMISTRY METHOD 08/03/2024 8:11 AM EST [facility] Blood Venous blood specimen / Unknown Venipuncture / Unknown 08/03/2024 6:01 AM EST 08/03/2024 7:27 AM EST us Steve Cruz MD LAB BLOOD ORDERABLES Fi nal Result [facility] [address] [place] [address], * Phosphorus (08/03/2024 6:01 AM EST) [facility] [address] Phosphorus 4.3 2.5 - 4.5 mg/dL LAB CHEMISTRY METHOD 08/03/2024 8:11 AM EST [facility] Blood Venous blood specimen / Unknown Venipuncture / Unknown 08/03/2024 6:01 AM EST 08/03/2024 7:27 AM EST us Steve Cruz MD LAB BLOOD ORDERABLES Fi nal Result [facility] [address] [place] [address], [place] [phone] * (ABNORMAL) POCT Glucose, blood (08/02/2024 7:33 PM EST) [facility] [address] Glucose POCT 241(H) 70 - 100 mg/dL 08/02/2024 7:34 PM EST [facility] Blood Capillary blood specimen / Unknown 08/02/2024 7:33 PM EST 08/02/2024 7:35 PM EST us Steve Cruz MD LAB POINT OF CA RE TEST DOCKED DEVICE UNSOLICITED RESULTS Final Result Performing Organization Address [facility]/ZIP Co de Phone Number [facility] [address] [place] [address], [place] [phone] * (ABNORMAL) POCT Glucose, blood (08/02/2024 4:27 PM EST) Glucose POCT 212(H) 70 - 100 mg/dL 08/02/2024 4:29 PM EST [facility] Blood Capillary blood specimen / Unknown 08/02/2024 4:27 PM EST 08/02/2024 4:29 PM EST us Steve Cruz MD LAB POINT OF CA RE TEST DOCKED DEVICE UNSOLICITED RESULTS Final Result Performing Organization Address [facility] Co de Phone Number [facility] [address] [place] [address], [place] [phone] * Type and screen (08/02/2024 3:04 PM EST) ABO Group O 08/02/2024 4:52 PM EST [facility] Rh Type Positive 08/02/2024 4:52 PM EST [facility] Antibody Screen Negative 08/02/2024 4:52 PM EST [facility] Blood Venous blood specimen / Unknown Venipuncture / Unknown 08/02/2024 3:04 PM EST 08/02/2024 4:07 PM EST us Steve Cruz MD LAB BLOOD BANK TEST ORD ERABLES Final Result Performing Organization Address [facility]/ZIP Co de Phone Number [facility] [address] [place] [address], [place] [phone] * Prepare RBC: 1 Units (08/02/2024 2:09 PM EST) Product Code [id number] 08/02/2024 6:27 PM EST [facility] Unit Number [id number] 08/02/19 6:27 PM [facility] Crossmatch Compatible 08/02/2024 5:03 PM EST [facility] Dispense Status Transfused 08/02/2024 6:27 PM [facility] Unit ABO Rh OPOS 08/02/2024 6:27 PM [facility] Unit Expiration Date Time [id number] 08/02/2024 6:27 PM [facility] Unit Blood Type 5100 08/02/2024 6:27 PM [facility] Blood Venous blood specimen / Unknown 08/02/2024 2:09 PM EST 08/02/2024 4:07 PM EST us Steve Cruz MD BLOOD BANK PRODUCT ORDE RABLES Final Result [facility] [address] [place] [address], * (ABNORMAL) POCT Glucose, blood (08/02/2024 11:26 AM EST) Pathologist [facility] Glucose POCT 153(H) 70 - 100 mg/dL 08/02/2024 11:41 AM EST [facility] Blood Capillary blood specimen / Unknown 08/02/2024 11:26 AM EST 08/02/2024 11:43 AM EST us Steve Cruz MD LAB POINT OF CA RE TEST DOCKED DEVICE UNSOLICITED RESULTS Final Result [facility] [address] [place] [address], [place] [phone] * POCT Glucose, blood (08/02/2024 7:46 AM EST) [facility] [address] Glucose POCT 90 70 - 100 mg/dL 08/02/2024 7:46 AM EST [facility] Blood Capillary blood specimen / Unknown 08/02/2024 7:46 AM EST 08/02/2024 7:48 AM EST Steve Cruz MD LAB POINT OF CA RE TEST DOCKED DEVICE UNSOLICITED RESULTS Final Result [facility] [address] [place] [address], [place] [phone] * (ABNORMAL) CBC - Every 3 Days (08/02/2024 6:06 AM EST) [facility] [address] WBC 8.0 4.8 - 10.8 K/mcL LAB HEMETOLOGY METHOD 08/02/2024 7:45 AM [facility] RBC 2.70(L) 3.80 - 4.80 M/mcL LAB HEMETOLOGY METHOD 08/02/2024 7:45 AM [facility] Hemoglobin 7.0(L) 11.5 - 16.0 g/dL LAB HEMETOLOGY METHOD 08/02/2024 7:45 AM [facility] Hematocrit 22.9(L) 35.0 - 47.0 % LAB HEMETOLOGY METHOD 08/02/2024 7:45 AM [facility] MCV 84.2 79.0 - 98.0 FL LAB HEMETOLOGY METHOD 08/02/2024 7:45 AM [facility] MCH 25.7(L) 27.0 - 32.0 pcg LAB HEMETOLOGY METHOD 08/02/2024 7:45 AM [facility] MCHC 30.6(L) 32.0 - 37.0 g/dL LAB HEMETOLOGY METHOD 08/02/2024 7:45 AM EST [facility] RDW 23.4(H) 11.0 - 15.0 % LAB HEMETOLOGY METHOD 08/02/2024 7:45 AM [facility] Platelets 205 130 - 400 K/mcL LAB HEMETOLOGY METHOD 08/02/2024 7:45 AM [facility] MPV 11.0 7.0 - 11.0 FL LAB HEMETOLOGY METHOD 08/02/2024 7:45 AM [facility] NRBC 0.0 <1.0 % LAB HEMETOLOGY METHOD 08/02/2024 7:45 AM [facility] NRBC Absolute 0.00 <0.10 K/mcL LAB HEMETOLOGY METHOD 08/02/2024 7:45 AM [facility] Blood Venous blood specimen / Unknown Venipuncture / Unknown 08/02/2024 6:06 AM EST 08/02/2024 7:23 AM EST Lencho Stuart MD LAB BLOOD ORDERABLES Final R esult [facility] [address] [place] [address], * (ABNORMAL) POCT Glucose, blood (08/01/2024 7:43 PM EST) Glucose POCT 209(H) 70 - 100 mg/dL 08/01/2024 7:44 PM EST [facility] Blood Capillary blood specimen / Unknown 08/01/2024 7:43 PM EST 08/01/2024 7:44 PM EST Steve Cruz MD LAB POINT OF CA RE TEST DOCKED DEVICE UNSOLICITED RESULTS Final Result [facility] [address] [place] [address], * (ABNORMAL) POCT Glucose, blood (08/01/2024 5:20 PM EST) Glucose POCT 168(H) 70 - 100 mg/dL 08/01/2024 5:21 PM EST [facility] Blood Capillary blood specimen / Unknown 08/01/2024 5:20 PM EST 08/01/2024 5:22 PM EST us Steve Cruz MD LAB POINT OF CA RE TEST DOCKED DEVICE UNSOLICITED RESULTS Final Result Performing Organization Address [facility]/ZIP Co de Phone Number [facility] [address] [place] [address], * (ABNORMAL) POCT Glucose, blood (08/01/2024 11:03 AM EST) Glucose POCT 149(H) 70 - 100 mg/dL 08/01/2024 11:03 AM EST [facility] Blood Capillary blood specimen / Unknown 08/01/2024 11:03 AM EST 08/01/2024 11:04 AM EST us Steve Cruz MD LAB POINT OF CA RE TEST DOCKED DEVICE UNSOLICITED RESULTS Final Result Performing Organization Address [facility]/ZIP Co de Phone Number [facility] [address] [place] [address], * (ABNORMAL) POCT Glucose, blood (08/01/2024 8:59 AM EST) Glucose POCT 128(H) 70 - 100 mg/dL 08/01/2024 9:01 AM EST [facility] Blood Capillary blood specimen / Unknown 08/01/2024 8:59 AM EST 08/01/2024 9:02 AM EST us Steve Cruz MD LAB POINT OF CA RE TEST DOCKED DEVICE UNSOLICITED RESULTS Final Result [facility] [address] [place] [address], [place] [phone] * POCT Glucose, blood (08/01/2024 7:34 AM EST) Glucose POCT 75 70 - 100 mg/dL 08/01/2024 7:35 AM EST [facility] Blood Capillary blood specimen / Unknown 08/01/2024 7:34 AM EST 08/01/2024 7:36 AM EST Steve Cruz MD LAB POINT OF CA RE TEST DOCKED DEVICE UNSOLICITED RESULTS Final Result Performing Organization Address [facility]/ZIP Co de Phone Number [facility] [address] [place] [address], [place] [phone] * (ABNORMAL) CBC auto differential (08/01/2024 6:59 AM EST) WBC 9.2 4.8 - 10.8 K/[facility] LAB HEMETOLOGY METHOD 08/01/2024 8:20 AM EST [facility] RBC 3.00(L) 3.80 - 4.80 M/[facility] LAB HEMETOLOGY METHOD 08/01/2024 8:20 AM EST [facility] Hemoglobin 7.7(L) 11.5 - 16.0 g/dL LAB HEMETOLOGY METHOD 08/01/2024 8:20 AM [facility] Hematocrit 25.2(L) 35.0 - 47.0 % LAB HEMETOLOGY METHOD 08/01/2024 8:20 AM [facility] MCV 84.6 79.0 - 98.0 FL LAB HEMETOLOGY METHOD 08/01/2024 8:20 AM [facility] MCH 25.8(L) 27.0 - 32.0 pcg LAB HEMETOLOGY METHOD 08/01/2024 8:20 AM [facility] MCHC 30.6(L) 32.0 - 37.0 g/dL LAB HEMETOLOGY METHOD 08/01/2024 8:20 AM [facility] RDW 23.5(H) 11.0 - 15.0 % LAB HEMETOLOGY METHOD 08/01/2024 8:20 AM [facility] Platelets 220 130 - 400 K/mcL LAB HEMETOLOGY METHOD 08/01/2024 8:20 AM [facility] MPV 11.3(H) 7.0 - 11.0 FL LAB HEMETOLOGY METHOD 08/01/2024 8:20 AM [facility] NRBC 0.0 <1.0 % LAB HEMETOLOGY METHOD 08/01/2024 8:20 AM [facility] NRBC Absolute 0.00 <0.10 K/mcL LAB HEMETOLOGY METHOD 08/01/2024 8:20 AM [facility] Neutrophils Relative 77.4 % LAB HEMETOLOGY METHOD 08/01/2024 8:20 AM [facility] Lymphocytes Relative 12.6 % LAB HEMETOLOGY METHOD 08/01/2024 8:20 AM [facility] Monocytes Relative 7.6 % LAB HEMETOLOGY METHOD 08/01/2024 8:20 AM [facility] Eosinophils Relative 0.9 % LAB HEMETOLOGY METHOD 08/01/2024 8:20 AM [facility] Basophils Relative 0.1 % LAB HEMETOLOGY METHOD 08/01/2024 8:20 AM EST [facility] Immature Granulocytes Relative 1.4 % LAB HEMETOLOGY METHOD 08/01/2024 8:20 AM EST [facility] Neutrophils Absolute 7.09(H) 1.50 - 7.00 K/mcL LAB HEMETOLOGY METHOD 08/01/2024 8:20 AM EST [facility] Lymphocytes Absolute 1.16 1.00 - 5.00 K/mcL LAB HEMETOLOGY METHOD 08/01/2024 8:20 AM EST [facility] Monocytes Absolute 0.70 0.20 - 1.00 K/mcL LAB HEMETOLOGY METHOD 08/01/2024 8:20 AM EST [facility] Eosinophils Absolute 0.08 0.00 - 0.50 K/mcL LAB HEMETOLOGY METHOD 08/01/2024 8:20 AM [facility] Basophils Absolute 0.01 0.00 - 0.20 K/mcL LAB HEMETOLOGY METHOD 08/01/2024 8:20 AM [facility] Immature Granulocytes Absolute 0.13(H) 0.00 - 0.03 K/mcL LAB HEMETOLOGY METHOD 08/01/2024 8:20 AM [facility] Blood Venous blood specimen / Unknown Existing Catheter / Unknown 08/01/2024 6:59 AM EST 08/01/2024 8:07 AM EST us Jonny Mathur MD LAB BLOOD ORDERABLES Final Re sult [facility] [address] [place] [address], * (ABNORMAL) Basic metabolic panel (08/01/2024 6:59 AM EST) Sodium 132(L) 133 - 145 mmol/L LAB CHEMISTRY METHOD 08/01/2024 8:41 AM EST [facility] Potassium 4.7 3.5 - 5.5 mmol/L LAB CHEMISTRY METHOD 08/01/2024 8:41 AM [facility] Chloride 96 96 - 110 mmol/L LAB CHEMISTRY METHOD 08/01/2024 8:41 AM [facility] CO2 30 21 - 32 mmol/L LAB CHEMISTRY METHOD 08/01/2024 8:41 AM [facility] Anion Gap 6 3 - 11 LAB CHEMISTRY METHOD 08/01/2024 8:41 AM [facility] Glucose 74 70 - 100 mg/dL LAB CHEMISTRY METHOD 08/01/2024 8:41 AM [facility] BUN 71(H) 5 - 25 mg/dL LAB CHEMISTRY METHOD 08/01/2024 8:41 AM [facility] Creatinine 4.62(H) 0.50 - 1.10 mg/dL LAB CHEMISTRY METHOD 08/01/2024 8:41 AM [facility] eGFR 9(L) >=60 mL/min/1. 73m2 LAB CHEMISTRY METHOD 08/01/2024 8:41 AM [facility] Comment:Calculation based on the??Chronic Kidney Disease Epidemiology Collaboration (CKD-EPI) equation refit??without adjustment for race. BUN/Creatinine Ratio 15.4 LAB CHEMISTRY METHOD 08/01/2024 8:41 AM [facility] Calcium 8.6 8.5 - 10.5 mg/dL LAB CHEMISTRY METHOD 08/01/2024 8:41 AM [facility] Blood Venous blood specimen / Unknown Existing Catheter / Unknown 08/01/2024 6:59 AM EST 08/01/2024 8:07 AM EST us Jonny Mathur MD LAB BLOOD ORDERABLES Final Re sult [facility] [address] [place] [address], * (ABNORMAL) POCT Glucose, blood (07/31/2024 8:23 PM EST) Glucose POCT 279(H) 70 - 100 mg/dL 07/31/2024 8:24 PM EST [facility] POCT Comment RN Notified 07/31/2024 8:24 PM EST [facility] Blood Capillary blood specimen / Unknown 07/31/2024 8:23 PM EST 07/31/2024 8:25 PM EST Jonny Mathur MD LAB POINT OF CARE TE ST DOCKED DEVICE UNSOLICITED RESULTS Final Result [facility] [address] [place] [address], [place] [phone] * (ABNORMAL) POCT Glucose, blood (07/31/2024 4:20 PM EST) Glucose POCT 241(H) 70 - 100 mg/dL 07/31/2024 4:21 PM EST [facility] Blood Capillary blood specimen / Unknown 07/31/2024 4:20 PM EST 07/31/2024 4:22 PM EST Jonny Mathur MD LAB POINT OF CARE TE ST DOCKED DEVICE UNSOLICITED RESULTS Final Result [facility] [address] [place] [address], [place] [phone] * (ABNORMAL) Hemoglobin and hematocrit (07/31/2024 2:30 PM EST) Hemoglobin 7.3(L) 11.5 - 16.0 g/dL LAB HEMETOLOGY METHOD 07/31/2024 3:12 PM EST [facility] Hematocrit 23.7(L) 35.0 - 47.0 % LAB HEMETOLOGY METHOD 07/31/2024 3:12 PM EST [facility] Blood Venous blood specimen / Unknown Venipuncture / Unknown 07/31/2024 2:30 PM EST 07/31/2024 3:05 PM EST us Jonny Mathur MD LAB BLOOD ORDERABLES Final Re sult Performing Organization Address [facility]/ZIP Co de Phone Number [facility] [address] [place] [address], [place] [phone] * (ABNORMAL) POCT Glucose, blood (07/31/2024 11:22 AM EST) Glucose POCT 132(H) 70 - 100 mg/dL 07/31/2024 11:24 AM EST [facility] Blood Capillary blood specimen / Unknown 07/31/2024 11:22 AM EST 07/31/2024 11:25 AM EST us Jonny Mathur MD LAB POINT OF CARE TE ST DOCKED DEVICE UNSOLICITED RESULTS Final Result Performing Organization Address [facility]/ZIP Co de Phone Number [facility] [address] [place] [address], [place] [phone] * (ABNORMAL) POCT Glucose, blood (07/31/2024 8:06 AM EST) Glucose POCT 112(H) 70 - 100 mg/dL 07/31/2024 8:06 AM EST [facility] Blood Capillary blood specimen / Unknown 07/31/2024 8:06 AM EST 07/31/2024 8:08 AM EST us Jonny Mathur MD LAB POINT OF CARE TE ST DOCKED DEVICE UNSOLICITED RESULTS Final Result Performing Organization Address [facility]/ZIP Co de Phone Number [facility] [address] [place] [address], [place] [phone] * (ABNORMAL) CBC auto differential (07/31/2024 5:43 AM EST) [facility] [address] WBC 7.4 4.8 - 10.8 K/mcL LAB HEMETOLOGY METHOD 07/31/2024 7:02 AM [facility] RBC 2.60(L) 3.80 - 4.80 M/mcL LAB HEMETOLOGY METHOD 07/31/2024 7:02 AM [facility] Hemoglobin 6.7(L) 11.5 - 16.0 g/dL LAB HEMETOLOGY METHOD 07/31/2024 7:02 AM [facility] Hematocrit 22.0(L) 35.0 - 47.0 % LAB HEMETOLOGY METHOD 07/31/2024 7:02 AM [facility] MCV 84.0 79.0 - 98.0 FL LAB HEMETOLOGY METHOD 07/31/2024 7:02 AM [facility] MCH 25.6(L) 27.0 - 32.0 pcg LAB HEMETOLOGY METHOD 07/31/2024 7:02 AM [facility] MCHC 30.5(L) 32.0 - 37.0 g/dL LAB HEMETOLOGY METHOD 07/31/2024 7:02 AM [facility] RDW 23.1(H) 11.0 - 15.0 % LAB HEMETOLOGY METHOD 07/31/2024 7:02 AM [facility] Platelets 183 130 - 400 K/mcL LAB HEMETOLOGY METHOD 07/31/2024 7:02 AM [facility] MPV 11.1(H) 7.0 - 11.0 FL LAB HEMETOLOGY METHOD 07/31/2024 7:02 AM [facility] NRBC 0.0 <1.0 % LAB HEMETOLOGY METHOD 07/31/2024 7:02 AM [facility] NRBC Absolute 0.00 <0.10 K/mcL LAB HEMETOLOGY METHOD 07/31/2024 7:02 AM [facility] Neutrophils Relative 77.7 % LAB HEMETOLOGY METHOD 07/31/2024 7:02 AM [facility] Lymphocytes Relative 11.7 % LAB HEMETOLOGY METHOD 07/31/2024 7:02 AM [facility] Monocytes Relative 8.6 % LAB HEMETOLOGY METHOD 07/31/2024 7:02 AM [facility] Eosinophils Relative 0.3 % LAB HEMETOLOGY METHOD 07/31/2024 7:02 AM [facility] Basophils Relative 0.1 % LAB HEMETOLOGY METHOD 07/31/2024 7:02 AM [facility] Immature Granulocytes Relative 1.6 % LAB HEMETOLOGY METHOD 07/31/2024 7:02 AM [facility] Neutrophils Absolute 5.77 1.50 - 7.00 K/mcL LAB HEMETOLOGY METHOD 07/31/2024 7:02 AM [facility] Lymphocytes Absolute 0.87(L) 1.00 - 5.00 K/mcL LAB HEMETOLOGY METHOD 07/31/2024 7:02 AM [facility] Monocytes Absolute 0.64 0.20 - 1.00 K/mcL LAB HEMETOLOGY METHOD 07/31/2024 7:02 AM [facility] Eosinophils Absolute 0.02 0.00 - 0.50 K/mcL LAB HEMETOLOGY METHOD 07/31/2024 7:02 AM [facility] Basophils Absolute 0.01 0.00 - 0.20 K/mcL LAB HEMETOLOGY METHOD 07/31/2024 7:02 AM [facility] Immature Granulocytes Absolute 0.12(H) 0.00 - 0.03 K/mcL LAB HEMETOLOGY METHOD 07/31/2024 7:02 AM [facility] Blood Venous blood specimen / Unknown Existing Catheter / Unknown 07/31/2024 5:43 AM EST 07/31/2024 6:34 AM EST us Jonny Mathur MD LAB BLOOD ORDERABLES Final Re sult [facility] [address] [place] [address], [place] [phone] * (ABNORMAL) Basic metabolic panel (07/31/2024 5:43 AM EST) Sodium 132(L) 133 - 145 mmol/L LAB CHEMISTRY METHOD 07/31/2024 7:22 AM [facility] Potassium 4.4 3.5 - 5.5 mmol/L LAB CHEMISTRY METHOD 07/31/2024 7:22 AM [facility] Chloride 94(L) 96 - 110 mmol/L LAB CHEMISTRY METHOD 07/31/2024 7:22 AM [facility] CO2 31 21 - 32 mmol/L LAB CHEMISTRY METHOD 07/31/2024 7:22 AM [facility] Anion Gap 7 3 - 11 LAB CHEMISTRY METHOD 07/31/2024 7:22 AM [facility] Glucose 123(H) 70 - 100 mg/dL LAB CHEMISTRY METHOD 07/31/2024 7:22 AM [facility] BUN 54(H) 5 - 25 mg/dL LAB CHEMISTRY METHOD 07/31/2024 7:22 AM [facility] Creatinine 3.73(H) 0.50 - 1.10 mg/dL LAB CHEMISTRY METHOD 07/31/2024 7:22 AM [facility] eGFR 12(L) >=60 mL/min/1. 73m2 LAB CHEMISTRY METHOD 07/31/2024 7:22 AM [facility] Comment:Calculation based on the??Chronic Kidney Disease Epidemiology Collaboration (CKD-EPI) equation refit??without adjustment for race. BUN/Creatinine Ratio 14.5 LAB CHEMISTRY METHOD 07/31/2024 7:22 AM EST [facility] Calcium 8.3(L) 8.5 - 10.5 mg/dL LAB CHEMISTRY METHOD 07/31/2024 7:22 AM EST [facility] Blood Venous blood specimen / Unknown Existing Catheter / Unknown 07/31/2024 5:43 AM EST 07/31/2024 6:36 AM EST us Jonny Mathur MD LAB BLOOD ORDERABLES Final Re sult [facility] [address] [place] [address], [place] [phone] * (ABNORMAL) POCT Glucose, blood (07/30/2024 7:51 PM EST) Glucose POCT 315(H) 70 - 100 mg/dL 07/30/2024 7:51 PM EST [facility] Blood Capillary blood specimen / Unknown 07/30/2024 7:51 PM EST 07/30/2024 7:52 PM EST us Jonny Mathur MD LAB POINT OF CARE TE ST DOCKED DEVICE UNSOLICITED RESULTS Final Result [facility] [address] [place] [address], [place] [phone] * (ABNORMAL) POCT Glucose, blood (07/30/2024 5:02 PM EST) Glucose POCT 299(H) 70 - 100 mg/dL 07/30/2024 5:03 PM EST [facility] Blood Capillary blood specimen / Unknown 07/30/2024 5:02 PM EST 07/30/2024 5:04 PM EST us Jonny Mathur MD LAB POINT OF CARE TE ST DOCKED DEVICE UNSOLICITED RESULTS Final Result [facility] [address] [place] [address], [place] [phone] * (ABNORMAL) Hemoglobin and hematocrit (07/30/2024 3:32 PM EST) Hemoglobin 7.1(L) 11.5 - 16.0 g/dL LAB HEMETOLOGY METHOD 07/30/2024 3:53 PM EST [facility] Hematocrit 23.1(L) 35.0 - 47.0 % LAB HEMETOLOGY METHOD 07/30/2024 3:53 PM [facility] Blood Venous blood specimen / Unknown Venipuncture / Unknown 07/30/2024 3:32 PM EST 07/30/2024 3:46 PM EST Jonny Mathur MD LAB BLOOD ORDERABLES Final Re sult [facility] [address] [place] [address], [place] [phone] * (ABNORMAL) Hepatic Function Panel - STAT (07/30/2024 11:52 AM EST) Total Protein 5.2(L) 6.0 - 8.0 g/dL LAB CHEMISTRY METHOD 07/30/2024 12:56 PM EST [facility] Albumin 2.4(L) 3.2 - 5.0 g/dL LAB CHEMISTRY METHOD 07/30/2024 12:56 PM EST [facility] Total Bilirubin 0.4 0.0 - 1.4 mg/dL LAB CHEMISTRY METHOD 07/30/2024 12:56 PM [facility] Bilirubin, Direct 0.2 0.0 - 0.3 mg/dL LAB CHEMISTRY METHOD 07/30/2024 12:56 PM EST [facility] Bilirubin, Indirect 0.2 0.0 - 1.1 mg/dL LAB CHEMISTRY METHOD 07/30/2024 12:56 PM EST [facility] ALT (SGPT) 17 10 - 60 unit/L LAB CHEMISTRY METHOD 07/30/2024 12:56 PM [facility] AST (SGOT) 12 10 - 42 unit/L LAB CHEMISTRY METHOD 07/30/2024 12:56 PM EST [facility] Alkaline Phosphatase 80 42 - 121 unit/L LAB CHEMISTRY METHOD 07/30/2024 12:56 PM [facility] Blood Venous blood specimen / Unknown Venipuncture / Unknown 07/30/2024 11:52 AM EST 07/30/2024 12:28 PM EST oJnny Mathur MD LAB BLOOD ORDERABLES Final Re sult Performing Organization Address City/[facility]/ZIP Co de Phone Number [facility] [address] [place] [address], [place] [phone] * (ABNORMAL) POCT Glucose, blood (07/30/2024 11:22 AM EST) Glucose POCT 182(H) 70 - 100 mg/dL 07/30/2024 11:25 AM EST [facility] Blood Capillary blood specimen / Unknown 07/30/2024 11:22 AM EST 07/30/2024 11:25 AM EST us Jonny Mathur MD LAB POINT OF CARE TE ST DOCKED DEVICE UNSOLICITED RESULTS Final Result Performing Organization Address City/[facility]/ZIP Co de Phone Number [facility] [address] [place] [address], [place] [phone] * (ABNORMAL) POCT Glucose, blood (07/30/2024 7:47 AM EST) Glucose POCT 173(H) 70 - 100 mg/dL 07/30/2024 7:48 AM [facility] Blood Capillary blood specimen / Unknown 07/30/2024 7:47 AM EST 07/30/2024 7:49 AM EST Jonny Mathur MD LAB POINT OF CARE TE ST DOCKED DEVICE UNSOLICITED RESULTS Final Result [facility] [address] [place] [address], * (ABNORMAL) CBC - Every 3 Days (07/30/2024 6:10 AM EST) WBC 8.0 4.8 - 10.8 K/mcL LAB HEMETOLOGY METHOD 07/30/2024 6:55 AM [facility] RBC 2.90(L) 3.80 - 4.80 M/mcL LAB HEMETOLOGY METHOD 07/30/2024 6:55 AM [facility] Hemoglobin 7.2(L) 11.5 - 16.0 g/dL LAB HEMETOLOGY METHOD 07/30/2024 6:55 AM [facility] Hematocrit 23.9(L) 35.0 - 47.0 % LAB HEMETOLOGY METHOD 07/30/2024 6:55 AM [facility] MCV 83.6 79.0 - 98.0 FL LAB HEMETOLOGY METHOD 07/30/2024 6:55 AM [facility] MCH 25.2(L) 27.0 - 32.0 pcg LAB HEMETOLOGY METHOD 07/30/2024 6:55 AM [facility] MCHC 30.1(L) 32.0 - 37.0 g/dL LAB HEMETOLOGY METHOD 07/30/2024 6:55 AM [facility] RDW 22.9(H) 11.0 - 15.0 % LAB HEMETOLOGY METHOD 07/30/2024 6:55 AM EST [facility] Platelets 176 130 - 400 K/mcL LAB HEMETOLOGY METHOD 07/30/2024 6:55 AM EST [facility] MPV 10.7 7.0 - 11.0 FL LAB HEMETOLOGY METHOD 07/30/2024 6:55 AM EST [facility] NRBC 0.0 <1.0 % LAB HEMETOLOGY METHOD 07/30/2024 6:55 AM EST [facility] NRBC Absolute 0.00 <0.10 K/mcL LAB HEMETOLOGY METHOD 07/30/2024 6:55 AM EST [facility] Blood Venous blood specimen / Unknown Venipuncture / Unknown 07/30/2024 6:10 AM EST 07/30/2024 6:25 AM EST Lencho Stuart MD LAB BLOOD ORDERABLES Final R esult Performing Organization Address [facility]/ZIP Co de Phone Number [facility] [address] [place] [address], * (ABNORMAL) Heparin and low molecular weight anti Xa level (07/30/2024 6:10 AM EST) Heparin Anti-Xa 1.16(H) 0.30 - 0.70 I Unit/mL LAB COAGULATION METHOD 07/30/2024 6:53 AM EST [facility] Blood Venous blood specimen / Unknown Venipuncture / Unknown 07/30/2024 6:10 AM EST 07/30/2024 6:26 AM EST Narrative [facility] - 07/30/2024 6:53 AM EST Therapeutic range listed is for Unfractionated Heparin. LMW Heparin therapeutic range: 0.50-1.20 IU/mL us Jonny Mathur MD LAB BLOOD ORDERABLES Final Re sult [facility] [address] [place] [address], [place] [phone] * (ABNORMAL) POCT Glucose, blood (07/29/2024 8:11 PM EST) Glucose POCT 321(H) 70 - 100 mg/dL 07/29/2024 8:19 PM EST [facility] Blood Capillary blood specimen / Unknown 07/29/2024 8:11 PM EST 07/29/2024 8:20 PM EST us Jonny Mathur MD LAB POINT OF CARE TE ST DOCKED DEVICE UNSOLICITED RESULTS Final Result Performing Organization Address [facility]/ZIP Co de Phone Number [facility] [address] [place] [address], [place] [phone] * (ABNORMAL) POCT Glucose, blood (07/29/2024 4:19 PM EST) [facility] [address] Glucose POCT 267(H) 70 - 100 mg/dL 07/29/2024 4:21 PM EST [facility] Blood Capillary blood specimen / Unknown 07/29/2024 4:19 PM EST 07/29/2024 4:22 PM EST us Jonny Mathur MD LAB POINT OF CARE TE ST DOCKED DEVICE UNSOLICITED RESULTS Final Result Performing Organization Address [facility]/ZIP Co de Phone Number [facility] [address] [place] [address], [place] [phone] * Hepatitis B surface antigen with reflex to confirmation (07/29/2024 11:51 AM EST) Pathologist [facility] Hepatitis B Surface Ag Negative Negative LAB CHEMISTRY METHOD 07/29/2024 3:12 PM EST [facility] Blood Venous blood specimen / Unknown Venipuncture / Unknown 07/29/2024 11:51 AM EST 07/29/2024 1:08 PM EST Narrative [facility] - 07/29/2024 3:12 PM EST Over the counter supplements containing high doses of biotin may interfere with this assay. ??If interference is suspected, patients shoud be retested after refraining from biotin supplements for 72 hours. us Jonny Mathur MD LAB BLOOD ORDERABLES Final Re sult [facility] [address] [place] [address], [place] [phone] * (ABNORMAL) POCT Glucose, blood (07/29/2024 11:23 AM EST) [facility] [address] Glucose POCT 108(H) 70 - 100 mg/dL 07/29/2024 11:30 AM EST [facility] Blood Capillary blood specimen / Unknown 07/29/2024 11:23 AM EST 07/29/2024 11:31 AM EST us Jonny Mathur MD LAB POINT OF CARE TE ST DOCKED DEVICE UNSOLICITED RESULTS Final Result Performing Organization Address City/[facility]/ZIP Co de Phone Number [facility] [address] [place] [address], [place] [phone] * Heparin and low molecular weight anti Xa level (07/29/2024 5:54 AM EST) [facility] [address] Heparin Anti-Xa 0.61 0.30 - 0.70 I Unit/mL LAB COAGULATION METHOD 07/29/2024 6:54 AM EST [facility] Blood Venous blood specimen / Unknown Venipuncture / Unknown 07/29/2024 5:54 AM EST 07/29/2024 6:34 AM EST Narrative [facility] - 07/29/2024 6:54 AM EST Therapeutic range listed is for Unfractionated Heparin. LMW Heparin therapeutic range: 0.50-1.20 IU/mL us Jonny Mathur MD LAB BLOOD ORDERABLES Final Re sult [facility] [address] [place] [address], [place] [phone] * (ABNORMAL) CBC auto differential (07/29/2024 5:54 AM EST) WBC 7.3 4.8 - 10.8 K/mcL LAB HEMETOLOGY METHOD 07/29/2024 6:55 AM [facility] RBC 2.60(L) 3.80 - 4.80 M/mcL LAB HEMETOLOGY METHOD 07/29/2024 6:55 AM [facility] Hemoglobin 6.7(L) 11.5 - 16.0 g/dL LAB HEMETOLOGY METHOD 07/29/2024 6:55 AM [facility] Hematocrit 21.7(L) 35.0 - 47.0 % LAB HEMETOLOGY METHOD 07/29/2024 6:55 AM [facility] MCV 82.8 79.0 - 98.0 FL LAB HEMETOLOGY METHOD 07/29/2024 6:55 AM [facility] MCH 25.6(L) 27.0 - 32.0 pcg LAB HEMETOLOGY METHOD 07/29/2024 6:55 AM [facility] MCHC 30.9(L) 32.0 - 37.0 g/dL LAB HEMETOLOGY METHOD 07/29/2024 6:55 AM [facility] RDW 23.1(H) 11.0 - 15.0 % LAB HEMETOLOGY METHOD 07/29/2024 6:55 AM [facility] Platelets 146 130 - 400 K/mcL LAB HEMETOLOGY METHOD 07/29/2024 6:55 AM [facility] MPV 10.7 7.0 - 11.0 FL LAB HEMETOLOGY METHOD 07/29/2024 6:55 AM [facility] NRBC 0.0 <1.0 % LAB HEMETOLOGY METHOD 07/29/2024 6:55 AM [facility] NRBC Absolute 0.00 <0.10 K/mcL LAB HEMETOLOGY METHOD 07/29/2024 6:55 AM [facility] Neutrophils Relative 83.4 % LAB HEMETOLOGY METHOD 07/29/2024 6:55 AM [facility] Lymphocytes Relative 8.2 % LAB HEMETOLOGY METHOD 07/29/2024 6:55 AM [facility] Monocytes Relative 6.1 % LAB HEMETOLOGY METHOD 07/29/2024 6:55 AM [facility] Eosinophils Relative 0.3 % LAB HEMETOLOGY METHOD 07/29/2024 6:55 AM [facility] Basophils Relative 0.1 % LAB HEMETOLOGY METHOD 07/29/2024 6:55 AM [facility] Immature Granulocytes Relative 1.9 % LAB HEMETOLOGY METHOD 07/29/2024 6:55 AM [facility] Neutrophils Absolute 6.11 1.50 - 7.00 K/mcL LAB HEMETOLOGY METHOD 07/29/2024 6:55 AM [facility] Lymphocytes Absolute 0.60(L) 1.00 - 5.00 K/mcL LAB HEMETOLOGY METHOD 07/29/2024 6:55 AM [facility] Monocytes Absolute 0.45 0.20 - 1.00 K/mcL LAB HEMETOLOGY METHOD 07/29/2024 6:55 AM [facility] Eosinophils Absolute 0.02 0.00 - 0.50 K/mcL LAB HEMETOLOGY METHOD 07/29/2024 6:55 AM [facility] Basophils Absolute 0.01 0.00 - 0.20 K/mcL LAB HEMETOLOGY METHOD 07/29/2024 6:55 AM [facility] Immature Granulocytes Absolute 0.14(H) 0.00 - 0.03 K/mcL LAB HEMETOLOGY METHOD 07/29/2024 6:55 AM [facility] Blood Venous blood specimen / Unknown Venipuncture / Unknown 07/29/2024 5:54 AM EST 07/29/2024 6:34 AM EST us Jonny Mathur MD LAB BLOOD ORDERABLES Final Re sult [facility] [address] [place] [address], [place] [phone] * (ABNORMAL) Basic metabolic panel (07/29/2024 5:54 AM EST) Sodium 131(L) 133 - 145 mmol/L LAB CHEMISTRY METHOD 07/29/2024 7:22 AM [facility] Potassium 4.2 3.5 - 5.5 mmol/L LAB CHEMISTRY METHOD 07/29/2024 7:22 AM [facility] Chloride 95(L) 96 - 110 mmol/L LAB CHEMISTRY METHOD 07/29/2024 7:22 AM [facility] CO2 31 21 - 32 mmol/L LAB CHEMISTRY METHOD 07/29/2024 7:22 AM [facility] Anion Gap 5 3 - 11 LAB CHEMISTRY METHOD 07/29/2024 7:22 AM [facility] Glucose 180(H) 70 - 100 mg/dL LAB CHEMISTRY METHOD 07/29/2024 7:22 AM [facility] BUN 49(H) 5 - 25 mg/dL LAB CHEMISTRY METHOD 07/29/2024 7:22 AM [facility] Creatinine 3.73(H) 0.50 - 1.10 mg/dL LAB CHEMISTRY METHOD 07/29/2024 7:22 AM EST [facility] eGFR 12(L) >=60 mL/min/1. 73m2 LAB CHEMISTRY METHOD 07/29/2024 7:22 AM EST [facility] Comment:Calculation based on the??Chronic Kidney Disease Epidemiology Collaboration (CKD-EPI) equation refit??without adjustment for race. BUN/Creatinine Ratio 13.1 LAB CHEMISTRY METHOD 07/29/2024 7:22 AM EST [facility] Calcium 7.8(L) 8.5 - 10.5 mg/dL LAB CHEMISTRY METHOD 07/29/2024 7:22 AM EST [facility] Blood Venous blood specimen / Unknown Venipuncture / Unknown 07/29/2024 5:54 AM EST 07/29/2024 6:34 AM EST Jonny Mathur MD LAB BLOOD ORDERABLES Final Re sult Performing Organization Address City/[facility]/ZIP Co de Phone Number [facility] [address] [place] [address], * Heparin and low molecular weight anti Xa level (07/28/2024 11:42 PM EST) Heparin Anti-Xa 0.65 0.30 - 0.70 I Unit/mL LAB COAGULATION METHOD 07/29/2024 12:10 AM EST [facility] Blood Venous blood specimen / Unknown Venipuncture / Unknown 07/28/2024 11:42 PM EST 07/28/2024 11:52 PM EST Narrative [facility] - 07/29/2024 12:10 AM EST Therapeutic range listed is for Unfractionated Heparin. LMW Heparin therapeutic range: 0.50-1.20 IU/mL us Jonny Mathur MD LAB BLOOD ORDERABLES Final Re sult Performing Organization Address City/[facility]/ZIP Co de Phone Number [facility] [address] [place] [address], [place] [phone] * (ABNORMAL) Heparin and low molecular weight anti Xa level (07/28/2024 7:46 PM EST) [facility] Heparin Anti-Xa 1.05(H) 0.30 - 0.70 I Unit/mL LAB COAGULATION METHOD 07/28/2024 9:19 PM EST [facility] Blood Venous blood specimen / Unknown Venipuncture / Unknown 07/28/2024 7:46 PM EST 07/28/2024 9:09 PM EST Narrative [facility] - 07/28/2024 9:19 PM EST Therapeutic range listed is for Unfractionated Heparin. LMW Heparin therapeutic range: 0.50-1.20 IU/mL us Jonny Mathur MD LAB BLOOD ORDERABLES Final Re sult [facility] [address] [place] [address], [place] [phone] * (ABNORMAL) POCT Glucose, blood (07/28/2024 7:41 PM EST) [facility] [address] Glucose POCT 269(H) 70 - 100 mg/dL 07/28/2024 7:41 PM EST [facility] Blood Capillary blood specimen / Unknown 07/28/2024 7:41 PM EST 07/28/2024 7:43 PM EST us Jonny Mathur MD LAB POINT OF CARE TE ST DOCKED DEVICE UNSOLICITED RESULTS Final Result [facility] [address] [place] [address], [place] [phone] * (ABNORMAL) POCT Glucose, blood (07/28/2024 4:54 PM EST) [facility] Glucose POCT 258(H) 70 - 100 mg/dL 07/28/2024 4:56 PM EST [facility] Blood Capillary blood specimen / Unknown 07/28/2024 4:54 PM EST 07/28/2024 4:57 PM EST Jonny Mathur MD LAB POINT OF CARE TE ST DOCKED DEVICE UNSOLICITED RESULTS Final Result Performing Organization Address [facility] Co de Phone Number [facility] [address] [place] [address], * Hepatitis B core antibody IgM (07/28/2024 12:19 PM EST) Hep B Core IgM Negative Negative LAB CHEMISTRY METHOD 07/28/2024 3:22 PM EST [facility] Blood Venous blood specimen / Unknown Venipuncture / Unknown 07/28/2024 12:19 PM EST 07/28/2024 12:35 PM EST Narrative [facility] - 07/28/2024 3:22 PM EST Over the counter supplements containing high doses of biotin may interfere with this assay. ??If interference is suspected, patients shoud be retested after refraining from biotin supplements for 72 hours. Miguel Quiles MD LAB BLOOD ORDERABLES Final Res ult Performing Organization Address City/[facility]/ZIP Co de Phone Number [facility] [address] [place] [address], * Hepatitis B surface antibody (07/28/2024 12:19 PM EST) Hepatitis B Surface Ab Negative Negative LAB CHEMISTRY METHOD 07/28/2024 1:40 PM EST [facility] Hepatitis B Surface Ab Quantitative <3.1 mIU/mL LAB CHEMISTRY METHOD 07/28/2024 1:40 PM EST [facility] Blood Venous blood specimen / Unknown Venipuncture / Unknown 07/28/2024 12:19 PM EST 07/28/2024 12:35 PM EST Narrative [facility] - 07/28/2024 1:40 PM EST >=10 mIU/mL is considered to be consistent with immunity. Miguel Quiles MD LAB BLOOD ORDERABLES Final Res ult Performing Organization Address [facility]/ZIP Co de Phone Number [facility] [address] [place] [address], [place] [phone] * (ABNORMAL) POCT Glucose, blood (07/28/2024 11:02 AM EST) [facility] [address] Glucose POCT 220(H) 70 - 100 mg/dL 07/28/2024 11:04 AM EST [facility] Blood Capillary blood specimen / Unknown 07/28/2024 11:02 AM EST 07/28/2024 11:05 AM EST Jonny Mathur MD LAB POINT OF CARE TE ST DOCKED DEVICE UNSOLICITED RESULTS Final Result Performing Organization Address [facility]/ZIP Co de Phone Number [facility] [address] [place] [address], [place] [phone] * (ABNORMAL) CBC auto differential (07/28/2024 9:51 AM EST) [facility] [address] WBC 13.0(H) 4.8 - 10.8 K/[facility] LAB HEMETOLOGY METHOD 07/28/2024 12:32 PM EST [facility] RBC 3.10(L) 3.80 - 4.80 M/[facility] LAB HEMETOLOGY METHOD 07/28/2024 12:32 PM EST [facility] Hemoglobin 8.0(L) 11.5 - 16.0 g/dL LAB HEMETOLOGY METHOD 07/28/2024 12:32 PM EST [facility] Hematocrit 26.5(L) 35.0 - 47.0 % LAB HEMETOLOGY METHOD 07/28/2024 12:32 PM [facility] MCV 84.9 79.0 - 98.0 FL LAB HEMETOLOGY METHOD 07/28/2024 12:32 PM [facility] MCH 25.6(L) 27.0 - 32.0 pcg LAB HEMETOLOGY METHOD 07/28/2024 12:32 PM [facility] MCHC 30.2(L) 32.0 - 37.0 g/dL LAB HEMETOLOGY METHOD 07/28/2024 12:32 PM [facility] RDW 22.8(H) 11.0 - 15.0 % LAB HEMETOLOGY METHOD 07/28/2024 12:32 PM [facility] Platelets 158 130 - 400 K/mcL LAB HEMETOLOGY METHOD 07/28/2024 12:32 PM [facility] MPV 11.5(H) 7.0 - 11.0 FL LAB HEMETOLOGY METHOD 07/28/2024 12:32 PM [facility] NRBC 0.0 <1.0 % LAB HEMETOLOGY METHOD 07/28/2024 12:32 PM [facility] NRBC Absolute 0.00 <0.10 K/mcL LAB HEMETOLOGY METHOD 07/28/2024 12:32 PM [facility] Neutrophils Relative 86.3 % LAB HEMETOLOGY METHOD 07/28/2024 12:32 PM [facility] Lymphocytes Relative 5.8 % LAB HEMETOLOGY METHOD 07/28/2024 12:32 PM [facility] Monocytes Relative 4.8 % LAB HEMETOLOGY METHOD 07/28/2024 12:32 PM [facility] Eosinophils Relative 1.7 % LAB HEMETOLOGY METHOD 07/28/2024 12:32 PM [facility] Basophils Relative 0.1 % LAB HEMETOLOGY METHOD 07/28/2024 12:32 PM EST [facility] Immature Granulocytes Relative 1.3 % LAB HEMETOLOGY METHOD 07/28/2024 12:32 PM EST [facility] Neutrophils Absolute 11.22(H) 1.50 - 7.00 K/mcL LAB HEMETOLOGY METHOD 07/28/2024 12:32 PM [facility] Lymphocytes Absolute 0.76(L) 1.00 - 5.00 K/mcL LAB HEMETOLOGY METHOD 07/28/2024 12:32 PM [facility] Monocytes Absolute 0.63 0.20 - 1.00 K/mcL LAB HEMETOLOGY METHOD 07/28/2024 12:32 PM [facility] Eosinophils Absolute 0.22 0.00 - 0.50 K/mcL LAB HEMETOLOGY METHOD 07/28/2024 12:32 PM [facility] Basophils Absolute 0.01 0.00 - 0.20 K/mcL LAB HEMETOLOGY METHOD 07/28/2024 12:32 PM [facility] Immature Granulocytes Absolute 0.17(H) 0.00 - 0.03 K/mcL LAB HEMETOLOGY METHOD 07/28/2024 12:32 PM [facility] Blood Venous blood specimen / Unknown Venipuncture / Unknown 07/28/2024 9:51 AM EST 07/28/2024 12:19 PM EST us Jonny Mathur MD LAB BLOOD ORDERABLES Final Re sult [facility] [address] [place] [address], * (ABNORMAL) Basic metabolic panel (07/28/2024 9:51 AM EST) Sodium 134 133 - 145 mmol/L LAB CHEMISTRY METHOD 07/28/2024 1:16 PM EST [facility] Potassium 4.0 3.5 - 5.5 mmol/L LAB CHEMISTRY METHOD 07/28/2024 1:16 PM [facility] Chloride 95(L) 96 - 110 mmol/L LAB CHEMISTRY METHOD 07/28/2024 1:16 PM [facility] CO2 29 21 - 32 mmol/L LAB CHEMISTRY METHOD 07/28/2024 1:16 PM [facility] Anion Gap 10 3 - 11 LAB CHEMISTRY METHOD 07/28/2024 1:16 PM [facility] Glucose 230(H) 70 - 100 mg/dL LAB CHEMISTRY METHOD 07/28/2024 1:16 PM [facility] BUN 32(H) 5 - 25 mg/dL LAB CHEMISTRY METHOD 07/28/2024 1:16 PM [facility] Creatinine 2.82(H) 0.50 - 1.10 mg/dL LAB CHEMISTRY METHOD 07/28/2024 1:16 PM [facility] eGFR 16(L) >=60 mL/min/1. 73m2 LAB CHEMISTRY METHOD 07/28/2024 1:16 PM [facility] Comment:Calculation based on the??Chronic Kidney Disease Epidemiology Collaboration (CKD-EPI) equation refit??without adjustment for race. BUN/Creatinine Ratio 11.3 LAB CHEMISTRY METHOD 07/28/2024 1:16 PM [facility] Calcium 7.9(L) 8.5 - 10.5 mg/dL LAB CHEMISTRY METHOD 07/28/2024 1:16 PM [facility] Blood Venous blood specimen / Unknown Venipuncture / Unknown 07/28/2024 9:51 AM EST 07/28/2024 12:18 PM EST us Jonny Mathur MD LAB BLOOD ORDERABLES Final Re sult [facility] [address] [place] [address], [place] [phone] * (ABNORMAL) Heparin and low molecular weight anti Xa level (07/28/2024 9:51 AM EST) Heparin Anti-Xa 0.16(L) 0.30 - 0.70 I Unit/mL LAB COAGULATION METHOD 07/28/2024 12:37 PM EST [facility] Blood Venous blood specimen / Unknown Venipuncture / Unknown 07/28/2024 9:51 AM EST 07/28/2024 12:19 PM EST Narrative [facility] - 07/28/2024 12:37 PM EST Therapeutic range listed is for Unfractionated Heparin. LMW Heparin therapeutic range: 0.50-1.20 IU/mL us Jonny Mathur MD LAB BLOOD ORDERABLES Final Re sult Performing Organization Address City/[facility]/ZIP Co de Phone Number [facility] [address] [place] [address], [place] [phone] * (ABNORMAL) POCT Glucose, blood (07/28/2024 9:29 AM EST) Glucose POCT 214(H) 70 - 100 mg/dL 07/28/2024 10:23 AM EST [facility] Blood Capillary blood specimen / Unknown 07/28/2024 9:29 AM EST 07/28/2024 10:24 AM EST Jonny Mathur MD LAB POINT OF CARE TE ST DOCKED DEVICE UNSOLICITED RESULTS Final Result [facility] [address] [place] [address], [place] [phone] * Heparin and low molecular weight anti Xa level (07/28/2024 2:09 AM EST) Heparin Anti-Xa 0.39 0.30 - 0.70 I Unit/mL LAB COAGULATION METHOD 07/28/2024 2:28 AM EST [facility] Blood Venous blood specimen / Unknown Venipuncture / Unknown 07/28/2024 2:09 AM EST 07/28/2024 2:16 AM EST Narrative [facility] - 07/28/2024 2:28 AM EST Therapeutic range listed is for Unfractionated Heparin. LMW Heparin therapeutic range: 0.50-1.20 IU/mL Jonny Mathur MD LAB BLOOD ORDERABLES Final Re sult [facility] [address] [place] [address], [place] [phone] * (ABNORMAL) Heparin and low molecular weight anti Xa level (07/27/2024 11:55 PM EST) Heparin Anti-Xa 0.22(L) 0.30 - 0.70 I Unit/mL LAB COAGULATION METHOD 07/28/2024 12:28 AM EST [facility] Blood Venous blood specimen / Unknown Venipuncture / Unknown 07/27/2024 11:55 PM EST 07/28/2024 12:20 AM EST Narrative [facility] - 07/28/2024 12:28 AM EST Therapeutic range listed is for Unfractionated Heparin. LMW Heparin therapeutic range: 0.50-1.20 IU/mL us Jonny Mathur MD LAB BLOOD ORDERABLES Final Re sult [facility] [address] [place] [address], [place] [phone] * (ABNORMAL) Heparin and low molecular weight anti Xa level (07/27/2024 9:31 PM EST) Heparin Anti-Xa 1.11(H) 0.30 - 0.70 I Unit/mL LAB COAGULATION METHOD 07/27/2024 9:51 PM EST [facility] Blood Venous blood specimen / Unknown Venipuncture / Unknown 07/27/2024 9:31 PM EST 07/27/2024 9:37 PM EST Narrative [facility] - 07/27/2024 9:51 PM EST Therapeutic range listed is for Unfractionated Heparin. LMW Heparin therapeutic range: 0.50-1.20 IU/mL us Jonny Mathur MD LAB BLOOD ORDERABLES Final Re sult Performing Organization Address City/[facility]/ZIP Co de Phone Number [facility] [address] [place] [address], [place] [phone] * (ABNORMAL) POCT Glucose, blood (07/27/2024 8:12 PM EST) Glucose POCT 249(H) 70 - 100 mg/dL 07/27/2024 8:13 PM EST [facility] Blood Capillary blood specimen / Unknown 07/27/2024 8:12 PM EST 07/27/2024 8:14 PM EST us Jonny Mathur MD LAB POINT OF CARE TE ST DOCKED DEVICE UNSOLICITED RESULTS Final Result Performing Organization Address [facility]/ZIP Co de Phone Number [facility] [address] [place] [address], [place] [phone] * (ABNORMAL) POCT Glucose, blood (07/27/2024 4:34 PM EST) Glucose POCT 213(H) 70 - 100 mg/dL 07/27/2024 4:40 PM EST [facility] Blood Capillary blood specimen / Unknown 07/27/2024 4:34 PM EST 07/27/2024 4:41 PM EST us Jonny Mathur MD LAB POINT OF CARE TE ST DOCKED DEVICE UNSOLICITED RESULTS Final Result [facility] [address] [place] [address], * (ABNORMAL) Complete blood count (07/27/2024 3:25 PM EST) [facility] [address] WBC 17.5(H) 4.8 - 10.8 K/mcL LAB HEMETOLOGY METHOD 07/27/2024 3:46 PM EST [facility] RBC 3.30(L) 3.80 - 4.80 M/mcL LAB HEMETOLOGY METHOD 07/27/2024 3:46 PM EST [facility] Hemoglobin 8.3(L) 11.5 - 16.0 g/dL LAB HEMETOLOGY METHOD 07/27/2024 3:46 PM EST [facility] Hematocrit 27.7(L) 35.0 - 47.0 % LAB HEMETOLOGY METHOD 07/27/2024 3:46 PM EST [facility] MCV 83.7 79.0 - 98.0 FL LAB HEMETOLOGY METHOD 07/27/2024 3:46 PM EST [facility] MCH 25.1(L) 27.0 - 32.0 pcg LAB HEMETOLOGY METHOD 07/27/2024 3:46 PM EST [facility] MCHC 30.0(L) 32.0 - 37.0 g/dL LAB HEMETOLOGY METHOD 07/27/2024 3:46 PM EST [facility] RDW 22.5(H) 11.0 - 15.0 % LAB HEMETOLOGY METHOD 07/27/2024 3:46 PM EST [facility] Platelets 147 130 - 400 K/mcL LAB HEMETOLOGY METHOD 07/27/2024 3:46 PM [facility] MPV 10.8 7.0 - 11.0 FL LAB HEMETOLOGY METHOD 07/27/2024 3:46 PM EST [facility] NRBC 0.0 <1.0 % LAB HEMETOLOGY METHOD 07/27/2024 3:46 PM EST [facility] NRBC Absolute 0.00 <0.10 K/mcL LAB HEMETOLOGY METHOD 07/27/2024 3:46 PM EST [facility] Blood Venous blood specimen / Unknown Venipuncture / Unknown 07/27/2024 3:25 PM EST 07/27/2024 3:29 PM EST Jonny Mathur MD LAB BLOOD ORDERABLES Final Re sult [facility] [address] [place] [address], [place] [phone] * (ABNORMAL) Heparin and low molecular weight anti Xa level (07/27/2024 1:42 PM EST) Heparin Anti-Xa <0.04(L) 0.30 - 0.70 I Unit/mL LAB COAGULATION METHOD 07/27/2024 2:08 PM EST [facility] Blood Venous blood specimen / Unknown Venipuncture / Unknown 07/27/2024 1:42 PM EST 07/27/2024 1:52 PM EST Narrative [facility] - 07/27/2024 2:08 PM EST Therapeutic range listed is for Unfractionated Heparin. LMW Heparin therapeutic range: 0.50-1.20 IU/mL Jonny Mathur MD LAB BLOOD ORDERABLES Final Re sult [facility] [address] [place] [address], [place] [phone] * (ABNORMAL) Basic metabolic panel (07/27/2024 1:42 PM EST) Sodium 131(L) 133 - 145 mmol/L LAB CHEMISTRY METHOD 07/27/2024 2:30 PM [facility] Potassium 3.8 3.5 - 5.5 mmol/L LAB CHEMISTRY METHOD 07/27/2024 2:30 PM [facility] Chloride 97 96 - 110 mmol/L LAB CHEMISTRY METHOD 07/27/2024 2:30 PM [facility] CO2 28 21 - 32 mmol/L LAB CHEMISTRY METHOD 07/27/2024 2:30 PM [facility] Anion Gap 6 3 - 11 LAB CHEMISTRY METHOD 07/27/2024 2:30 PM [facility] Glucose 150(H) 70 - 100 mg/dL LAB CHEMISTRY METHOD 07/27/2024 2:30 PM [facility] BUN 17 5 - 25 mg/dL LAB CHEMISTRY METHOD 07/27/2024 2:30 PM [facility] Creatinine 1.53(H) 0.50 - 1.10 mg/dL LAB CHEMISTRY METHOD 07/27/2024 2:30 PM [facility] eGFR 34(L) >=60 mL/min/1. 73m2 LAB CHEMISTRY METHOD 07/27/2024 2:30 PM [facility] Comment:Calculation based on the??Chronic Kidney Disease Epidemiology Collaboration (CKD-EPI) equation refit??without adjustment for race. BUN/Creatinine Ratio 11.1 LAB CHEMISTRY METHOD 07/27/2024 2:30 PM [facility] Calcium 7.9(L) 8.5 - 10.5 mg/dL LAB CHEMISTRY METHOD 07/27/2024 2:30 PM [facility] Blood Venous blood specimen / Unknown Venipuncture / Unknown 07/27/2024 1:42 PM EST 07/27/2024 1:52 PM EST us Jonny Mathur MD LAB BLOOD ORDERABLES Final Re sult [facility] [address] [place] [address], [place] [phone] * (ABNORMAL) POCT Glucose, blood (07/27/2024 11:54 AM EST) [facility] [address] Glucose POCT 126(H) 70 - 100 mg/dL 07/27/2024 11:57 AM EST [facility] Blood Capillary blood specimen / Unknown 07/27/2024 11:54 AM EST 07/27/2024 11:58 AM EST Jonny Mathur MD LAB POINT OF CARE TE ST DOCKED DEVICE UNSOLICITED RESULTS Final Result [facility] [address] [place] [address], [place] [phone] * (ABNORMAL) CBC auto differential (07/27/2024 6:27 AM EST) [facility] [address] WBC 12.4(H) 4.8 - 10.8 K/mcL LAB HEMETOLOGY METHOD 07/27/2024 7:55 AM [facility] RBC 3.10(L) 3.80 - 4.80 M/mcL LAB HEMETOLOGY METHOD 07/27/2024 7:55 AM [facility] Hemoglobin 7.7(L) 11.5 - 16.0 g/dL LAB HEMETOLOGY METHOD 07/27/2024 7:55 AM [facility] Hematocrit 25.5(L) 35.0 - 47.0 % LAB HEMETOLOGY METHOD 07/27/2024 7:55 AM [facility] MCV 83.3 79.0 - 98.0 FL LAB HEMETOLOGY METHOD 07/27/2024 7:55 AM [facility] MCH 25.2(L) 27.0 - 32.0 pcg LAB HEMETOLOGY METHOD 07/27/2024 7:55 AM [facility] MCHC 30.2(L) 32.0 - 37.0 g/dL LAB HEMETOLOGY METHOD 07/27/2024 7:55 AM [facility] RDW 22.4(H) 11.0 - 15.0 % LAB HEMETOLOGY METHOD 07/27/2024 7:55 AM [facility] Platelets 143 130 - 400 K/mcL LAB HEMETOLOGY METHOD 07/27/2024 7:55 AM [facility] MPV 11.2(H) 7.0 - 11.0 FL LAB HEMETOLOGY METHOD 07/27/2024 7:55 AM [facility] NRBC 0.0 <1.0 % LAB HEMETOLOGY METHOD 07/27/2024 7:55 AM [facility] NRBC Absolute 0.00 <0.10 K/mcL LAB HEMETOLOGY METHOD 07/27/2024 7:55 AM [facility] Neutrophils Relative 82.8 % LAB HEMETOLOGY METHOD 07/27/2024 7:55 AM [facility] Lymphocytes Relative 10.0 % LAB HEMETOLOGY METHOD 07/27/2024 7:55 AM [facility] Monocytes Relative 4.8 % LAB HEMETOLOGY METHOD 07/27/2024 7:55 AM [facility] Eosinophils Relative 0.8 % LAB HEMETOLOGY METHOD 07/27/2024 7:55 AM [facility] Basophils Relative 0.1 % LAB HEMETOLOGY METHOD 07/27/2024 7:55 AM [facility] Immature Granulocytes Relative 1.5 % LAB HEMETOLOGY METHOD 07/27/2024 7:55 AM [facility] Neutrophils Absolute 10.27(H) 1.50 - 7.00 K/mcL LAB HEMETOLOGY METHOD 07/27/2024 7:55 AM [facility] Lymphocytes Absolute 1.24 1.00 - 5.00 K/[facility] LAB HEMETOLOGY METHOD 07/27/2024 7:55 AM EST [facility] Monocytes Absolute 0.59 0.20 - 1.00 K/[facility] LAB HEMETOLOGY METHOD 07/27/2024 7:55 AM EST [facility] Eosinophils Absolute 0.10 0.00 - 0.50 K/[facility] LAB HEMETOLOGY METHOD 07/27/2024 7:55 AM EST [facility] Basophils Absolute 0.01 0.00 - 0.20 K/[facility] LAB HEMETOLOGY METHOD 07/27/2024 7:55 AM EST [facility] Immature Granulocytes Absolute 0.19(H) 0.00 - 0.03 K/[facility] LAB HEMETOLOGY METHOD 07/27/2024 7:55 AM EST [facility] Blood Venous blood specimen / Unknown Venipuncture / Unknown 07/27/2024 6:27 AM EST 07/27/2024 7:41 AM EST us Jonny Mathur MD LAB BLOOD ORDERABLES Final Re sult [facility] [address] [place] [address], [place] [phone] * (ABNORMAL) Heparin and low molecular weight anti Xa level (07/27/2024 6:27 AM EST) Heparin Anti-Xa 0.74(H) 0.30 - 0.70 I Unit/mL LAB COAGULATION METHOD 07/27/2024 8:11 AM EST [facility] Blood Venous blood specimen / Unknown Venipuncture / Unknown 07/27/2024 6:27 AM EST 07/27/2024 7:41 AM EST [facility] - 07/27/2024 8:11 AM EST Therapeutic range listed is for Unfractionated Heparin. LMW Heparin therapeutic range: 0.50-1.20 IU/mL us Jonny Mathur MD LAB BLOOD ORDERABLES Final Re sult [facility] [address] [place] [address], * (ABNORMAL) CBC - Every 3 Days (07/27/2024 6:27 AM EST) WBC 12.4(H) 4.8 - 10.8 K/mcL LAB HEMETOLOGY METHOD 07/27/2024 7:55 AM [facility] RBC 3.10(L) 3.80 - 4.80 M/mcL LAB HEMETOLOGY METHOD 07/27/2024 7:55 AM [facility] Hemoglobin 7.7(L) 11.5 - 16.0 g/dL LAB HEMETOLOGY METHOD 07/27/2024 7:55 AM [facility] Hematocrit 25.5(L) 35.0 - 47.0 % LAB HEMETOLOGY METHOD 07/27/2024 7:55 AM [facility] MCV 83.3 79.0 - 98.0 FL LAB HEMETOLOGY METHOD 07/27/2024 7:55 AM [facility] MCH 25.2(L) 27.0 - 32.0 pcg LAB HEMETOLOGY METHOD 07/27/2024 7:55 AM [facility] MCHC 30.2(L) 32.0 - 37.0 g/dL LAB HEMETOLOGY METHOD 07/27/2024 7:55 AM [facility] RDW 22.4(H) 11.0 - 15.0 % LAB HEMETOLOGY METHOD 07/27/2024 7:55 AM [facility] Platelets 143 130 - 400 K/mcL LAB HEMETOLOGY METHOD 07/27/2024 7:55 AM [facility] MPV 11.2(H) 7.0 - 11.0 FL LAB HEMETOLOGY METHOD 07/27/2024 7:55 AM EST [facility] NRBC 0.0 <1.0 % LAB HEMETOLOGY METHOD 07/27/2024 7:55 AM [facility] NRBC Absolute 0.00 <0.10 K/mcL LAB HEMETOLOGY METHOD 07/27/2024 7:55 AM EST [facility] Blood Venous blood specimen / Unknown Venipuncture / Unknown 07/27/2024 6:27 AM EST 07/27/2024 7:41 AM EST [facility] LAB BLOOD ORDERABLES Final R esult [facility] [address] [place] [address], * (ABNORMAL) Basic metabolic panel (07/27/2024 6:27 AM EST) Sodium 130(L) 133 - 145 mmol/L LAB CHEMISTRY METHOD 07/27/2024 8:43 AM [facility] Potassium 4.2 3.5 - 5.5 mmol/L LAB CHEMISTRY METHOD 07/27/2024 8:43 AM [facility] Chloride 93(L) 96 - 110 mmol/L LAB CHEMISTRY METHOD 07/27/2024 8:43 AM [facility] CO2 30 21 - 32 mmol/L LAB CHEMISTRY METHOD 07/27/2024 8:43 AM [facility] Anion Gap 7 3 - 11 LAB CHEMISTRY METHOD 07/27/2024 8:43 AM [facility] Glucose 182(H) 70 - 100 mg/dL LAB CHEMISTRY METHOD 07/27/2024 8:43 AM [facility] BUN 62(H) 5 - 25 mg/dL LAB CHEMISTRY METHOD 07/27/2024 8:43 AM [facility] Creatinine 3.88(H) 0.50 - 1.10 mg/dL LAB CHEMISTRY METHOD 07/27/2024 8:43 AM [facility] eGFR 11(L) >=60 mL/min/1. 73m2 LAB CHEMISTRY METHOD 07/27/2024 8:43 AM [facility] Comment:Calculation based on the??Chronic Kidney Disease Epidemiology Collaboration (CKD-EPI) equation refit??without adjustment for race. BUN/Creatinine Ratio 16.0 LAB CHEMISTRY METHOD 07/27/2024 8:43 AM [facility] Calcium 8.2(L) 8.5 - 10.5 mg/dL LAB CHEMISTRY METHOD 07/27/2024 8:43 AM [facility] Blood Venous blood specimen / Unknown Venipuncture / Unknown 07/27/2024 6:27 AM EST 07/27/2024 7:41 AM EST us Jonny Mathur MD LAB BLOOD ORDERABLES Final Re sult [facility] [address] [place] [address], [place] [phone] * (ABNORMAL) POCT Glucose, blood (07/26/2024 8:23 PM EST) Glucose POCT 189(H) 70 - 100 mg/dL 07/26/2024 8:24 PM EST [facility] Blood Capillary blood specimen / Unknown 07/26/2024 8:23 PM EST 07/26/2024 8:25 PM EST us Jonny Mathur MD LAB POINT OF CARE TE ST DOCKED DEVICE UNSOLICITED RESULTS Final Result Performing Organization Address [facility]/ZIP Co de Phone Number [facility] [address] [place] [address], [place] [phone] * (ABNORMAL) POCT Glucose, blood (07/26/2024 4:28 PM EST) Glucose POCT 192(H) 70 - 100 mg/dL 07/26/2024 4:29 PM EST [facility] Blood Capillary blood specimen / Unknown 07/26/2024 4:28 PM EST 07/26/2024 4:30 PM EST us Jonny Mathur MD LAB POINT OF CARE TE ST DOCKED DEVICE UNSOLICITED RESULTS Final Result [facility] [address] [place] [address], [place] [phone] * (ABNORMAL) POCT Glucose, blood (07/26/2024 11:15 AM EST) Glucose POCT 180(H) 70 - 100 mg/dL 07/26/2024 11:17 AM EST [facility] Blood Capillary blood specimen / Unknown 07/26/2024 11:15 AM EST 07/26/2024 11:18 AM EST us Jonny Mathur MD LAB POINT OF CARE TE ST DOCKED DEVICE UNSOLICITED RESULTS Final Result [facility] [address] [place] [address], [place] [phone] * (ABNORMAL) POCT Glucose, blood (07/26/2024 8:08 AM EST) Glucose POCT 128(H) 70 - 100 mg/dL 07/26/2024 8:09 AM EST [facility] Blood Capillary blood specimen / Unknown 07/26/2024 8:08 AM EST 07/26/2024 8:10 AM EST us Jonny Mathur MD LAB POINT OF CARE TE ST DOCKED DEVICE UNSOLICITED RESULTS Final Result Performing Organization Address [facility]/ZIP Co de Phone Number [facility] [address] [place] [address], [place] [phone] * Heparin and low molecular weight anti Xa level (07/26/2024 6:06 AM EST) Heparin Anti-Xa 0.65 0.30 - 0.70 I Unit/mL LAB COAGULATION METHOD 07/26/2024 7:08 AM EST [facility] Blood Venous blood specimen / Unknown Venipuncture / Unknown 07/26/2024 6:06 AM EST 07/26/2024 6:19 AM EST Narrative [facility] - 07/26/2024 7:08 AM EST Therapeutic range listed is for Unfractionated Heparin. LMW Heparin therapeutic range: 0.50-1.20 IU/mL us Jonny Mathur MD LAB BLOOD ORDERABLES Final Re sult Performing Organization Address [facility]/ZIP Co de Phone Number [facility] [address] [place] [address], [place] [phone] * (ABNORMAL) POCT Glucose, blood (07/25/2024 9:22 PM EST) Glucose POCT 183(H) 70 - 100 mg/dL 07/25/2024 9:22 PM EST [facility] Blood Capillary blood specimen / Unknown 07/25/2024 9:22 PM EST 07/25/2024 9:23 PM EST us Jonny Mathur MD LAB POINT OF CARE TE ST DOCKED DEVICE UNSOLICITED RESULTS Final Result Performing Organization Address [facility]/ZIP Co de Phone Number [facility] [address] [place] [address], [place] [phone] * (ABNORMAL) POCT Glucose, blood (07/25/2024 4:02 PM EST) Glucose POCT 194(H) 70 - 100 mg/dL 07/25/2024 4:02 PM EST [facility] Blood Capillary blood specimen / Unknown 07/25/2024 4:02 PM EST 07/25/2024 4:03 PM EST us Jonny Mathur MD LAB POINT OF CARE TE ST DOCKED DEVICE UNSOLICITED RESULTS Final Result [facility] [address] [place] [address], [place] [phone] * (ABNORMAL) POCT Glucose, blood (07/25/2024 2:56 PM EST) Glucose POCT 143(H) 70 - 100 mg/dL 07/25/2024 2:56 PM EST [facility] Blood Capillary blood specimen / Unknown 07/25/2024 2:56 PM EST 07/25/2024 2:58 PM EST us Jonny Mathur MD LAB POINT OF CARE TE ST DOCKED DEVICE UNSOLICITED RESULTS Final Result Performing Organization Address [facility]/ZIP Co de Phone Number [facility] [address] [place] [address], [place] [phone] * (ABNORMAL) POCT Glucose, blood (07/25/2024 8:18 AM EST) Glucose POCT 212(H) 70 - 100 mg/dL 07/25/2024 8:19 AM EST [facility] Blood Capillary blood specimen / Unknown 07/25/2024 8:18 AM EST 07/25/2024 8:20 AM EST us Jonny Mathur MD LAB POINT OF CARE TE ST DOCKED DEVICE UNSOLICITED RESULTS Final Result [facility] [address] [place] [address], * (ABNORMAL) CBC auto differential (07/25/2024 5:35 AM EST) [facility] WBC 14.2(H) 4.8 - 10.8 K/mcL LAB HEMETOLOGY METHOD 07/25/2024 7:21 AM [facility] RBC 3.10(L) 3.80 - 4.80 M/mcL LAB HEMETOLOGY METHOD 07/25/2024 7:21 AM [facility] Hemoglobin 8.0(L) 11.5 - 16.0 g/dL LAB HEMETOLOGY METHOD 07/25/2024 7:21 AM [facility] Hematocrit 25.7(L) 35.0 - 47.0 % LAB HEMETOLOGY METHOD 07/25/2024 7:21 AM [facility] MCV 82.1 79.0 - 98.0 FL LAB HEMETOLOGY METHOD 07/25/2024 7:21 AM [facility] MCH 25.6(L) 27.0 - 32.0 pcg LAB HEMETOLOGY METHOD 07/25/2024 7:21 AM [facility] MCHC 31.1(L) 32.0 - 37.0 g/dL LAB HEMETOLOGY METHOD 07/25/2024 7:21 AM [facility] RDW 21.7(H) 11.0 - 15.0 % LAB HEMETOLOGY METHOD 07/25/2024 7:21 AM [facility] Platelets 158 130 - 400 K/mcL LAB HEMETOLOGY METHOD 07/25/2024 7:21 AM [facility] MPV 10.6 7.0 - 11.0 FL LAB HEMETOLOGY METHOD 07/25/2024 7:21 AM [facility] NRBC 0.0 <1.0 % LAB HEMETOLOGY METHOD 07/25/2024 7:21 AM [facility] NRBC Absolute 0.00 <0.10 K/mcL LAB HEMETOLOGY METHOD 07/25/2024 7:21 AM [facility] Neutrophils Relative 83.3 % LAB HEMETOLOGY METHOD 07/25/2024 7:21 AM [facility] Lymphocytes Relative 8.9 % LAB HEMETOLOGY METHOD 07/25/2024 7:21 AM [facility] Monocytes Relative 6.3 % LAB HEMETOLOGY METHOD 07/25/2024 7:21 AM [facility] Eosinophils Relative 0.6 % LAB HEMETOLOGY METHOD 07/25/2024 7:21 AM [facility] Basophils Relative 0.1 % LAB HEMETOLOGY METHOD 07/25/2024 7:21 AM [facility] Immature Granulocytes Relative 0.8 % LAB HEMETOLOGY METHOD 07/25/2024 7:21 AM [facility] Neutrophils Absolute 11.87(H) 1.50 - 7.00 K/mcL LAB HEMETOLOGY METHOD 07/25/2024 7:21 AM [facility] Lymphocytes Absolute 1.26 1.00 - 5.00 K/mcL LAB HEMETOLOGY METHOD 07/25/2024 7:21 AM [facility] Monocytes Absolute 0.89 0.20 - 1.00 K/mcL LAB HEMETOLOGY METHOD 07/25/2024 7:21 AM [facility] Eosinophils Absolute 0.08 0.00 - 0.50 K/mcL LAB HEMETOLOGY METHOD 07/25/2024 7:21 AM [facility] Basophils Absolute 0.01 0.00 - 0.20 K/mcL LAB HEMETOLOGY METHOD 07/25/2024 7:21 AM [facility] Immature Granulocytes Absolute 0.11(H) 0.00 - 0.03 K/mcL LAB HEMETOLOGY METHOD 07/25/2024 7:21 AM EST [facility] Blood Venous blood specimen / Unknown Venipuncture / Unknown 07/25/2024 5:35 AM EST 07/25/2024 6:48 AM EST Lencho Stuart MD LAB BLOOD ORDERABLES Final R esult Performing Organization Address [facility]/ZIP Co de Phone Number [facility] [address] [place] [address], * Heparin and low molecular weight anti Xa level (07/25/2024 5:35 AM EST) Heparin Anti-Xa 0.61 0.30 - 0.70 I Unit/mL LAB COAGULATION METHOD 07/25/2024 7:17 AM EST [facility] Blood Venous blood specimen / Unknown Venipuncture / Unknown 07/25/2024 5:35 AM EST 07/25/2024 6:48 AM EST Narrative [facility] - 07/25/2024 7:17 AM EST Therapeutic range listed is for Unfractionated Heparin. LMW Heparin therapeutic range: 0.50-1.20 IU/mL Lencho Stuart MD LAB BLOOD ORDERABLES Final R esult Performing Organization Address [facility]/ZIP Co de Phone Number [facility] [address] [place] [address], * (ABNORMAL) Basic metabolic panel (07/25/2024 5:35 AM EST) Sodium 132(L) 133 - 145 mmol/L LAB CHEMISTRY METHOD 07/25/2024 7:57 AM EST [facility] Potassium 4.2 3.5 - 5.5 mmol/L LAB CHEMISTRY METHOD 07/25/2024 7:57 AM EST [facility] Chloride 94(L) 96 - 110 mmol/L LAB CHEMISTRY METHOD 07/25/2024 7:57 AM [facility] CO2 30 21 - 32 mmol/L LAB CHEMISTRY METHOD 07/25/2024 7:57 AM [facility] Anion Gap 8 3 - 11 LAB CHEMISTRY METHOD 07/25/2024 7:57 AM [facility] Glucose 194(H) 70 - 100 mg/dL LAB CHEMISTRY METHOD 07/25/2024 7:57 AM [facility] BUN 77(H) 5 - 25 mg/dL LAB CHEMISTRY METHOD 07/25/2024 7:57 AM [facility] Creatinine 3.91(H) 0.50 - 1.10 mg/dL LAB CHEMISTRY METHOD 07/25/2024 7:57 AM [facility] eGFR 11(L) >=60 mL/min/1. 73m2 LAB CHEMISTRY METHOD 07/25/2024 7:57 AM [facility] Comment:Calculation based on the??Chronic Kidney Disease Epidemiology Collaboration (CKD-EPI) equation refit??without adjustment for race. BUN/Creatinine Ratio 19.7 LAB CHEMISTRY METHOD 07/25/2024 7:57 AM [facility] Calcium 8.2(L) 8.5 - 10.5 mg/dL LAB CHEMISTRY METHOD 07/25/2024 7:57 AM [facility] Blood Venous blood specimen / Unknown Venipuncture / Unknown 07/25/2024 5:35 AM EST 07/25/2024 6:48 AM EST us Estdimas Stuart MD LAB BLOOD ORDERABLES Final R esult [facility] [address] [place] [address], * (ABNORMAL) POCT Glucose, blood (07/24/2024 7:58 PM EST) Glucose POCT 228(H) 70 - 100 mg/dL 07/24/2024 7:58 PM EST [facility] Blood Capillary blood specimen / Unknown 07/24/2024 7:58 PM EST 07/24/2024 8:00 PM EST us Lencho Stuart MD LAB POINT OF CARE TE ST DOCKED DEVICE UNSOLICITED RESULTS Final Result [facility] [address] [place] [address], [place] [phone] * (ABNORMAL) POCT Glucose, blood (07/24/2024 3:24 PM EST) Glucose POCT 239(H) 70 - 100 mg/dL 07/24/2024 3:25 PM EST [facility] POCT Comment RN Notified 07/24/2024 3:25 PM EST [facility] Blood Capillary blood specimen / Unknown 07/24/2024 3:24 PM EST 07/24/2024 3:26 PM EST us Lencho Stuart MD LAB POINT OF CARE TE ST DOCKED DEVICE UNSOLICITED RESULTS Final Result Performing Organization Address [facility]/ZIP Co de Phone Number [facility] [address] [place] [address], [place] [phone] * (ABNORMAL) POCT Glucose, blood (07/24/2024 11:39 AM EST) Glucose POCT 260(H) 70 - 100 mg/dL 07/24/2024 11:40 AM EST [facility] POCT Comment RN Notified 07/24/2024 11:40 AM EST [facility] Blood Capillary blood specimen / Unknown 07/24/2024 11:39 AM EST 07/24/2024 11:41 AM EST us Lencho Stuart MD LAB POINT OF CARE TE ST DOCKED DEVICE UNSOLICITED RESULTS Final Result [facility] [address] [place] [address], [place] [phone] * (ABNORMAL) POCT Glucose, blood (07/24/2024 7:32 AM EST) Glucose POCT 301(H) 70 - 100 mg/dL 07/24/2024 7:33 AM EST [facility] POCT Comment RN Notified 07/24/2024 7:33 AM EST [facility] Blood Capillary blood specimen / Unknown 07/24/2024 7:32 AM EST 07/24/2024 7:34 AM EST us Lencho Stuart MD LAB POINT OF CARE TE ST DOCKED DEVICE UNSOLICITED RESULTS Final Result Performing Organization Address City/[facility]/ZIP Co de Phone Number [facility] [address] [place] [address], [place] [phone] * Heparin and low molecular weight anti Xa level (07/24/2024 6:48 AM EST) [facility] [address] Heparin Anti-Xa 0.60 0.30 - 0.70 I Unit/mL LAB COAGULATION METHOD 07/24/2024 7:29 AM EST [facility] Blood Venous blood specimen / Unknown Venipuncture / Unknown 07/24/2024 6:48 AM EST 07/24/2024 7:03 AM EST Narrative [facility] - 07/24/2024 7:29 AM EST Therapeutic range listed is for Unfractionated Heparin. LMW Heparin therapeutic range: 0.50-1.20 IU/mL us Lencho Stuart MD LAB BLOOD ORDERABLES Final R esult [facility] [address] [place] [address], * (ABNORMAL) CBC auto differential (07/24/2024 6:48 AM EST) WBC 13.1(H) 4.8 - 10.8 K/mcL LAB HEMETOLOGY METHOD 07/24/2024 7:30 AM [facility] RBC 3.10(L) 3.80 - 4.80 M/mcL LAB HEMETOLOGY METHOD 07/24/2024 7:30 AM [facility] Hemoglobin 7.7(L) 11.5 - 16.0 g/dL LAB HEMETOLOGY METHOD 07/24/2024 7:30 AM [facility] Hematocrit 25.3(L) 35.0 - 47.0 % LAB HEMETOLOGY METHOD 07/24/2024 7:30 AM EST [facility] MCV 81.4 79.0 - 98.0 FL LAB HEMETOLOGY METHOD 07/24/2024 7:30 AM [facility] MCH 24.8(L) 27.0 - 32.0 pcg LAB HEMETOLOGY METHOD 07/24/2024 7:30 AM [facility] MCHC 30.4(L) 32.0 - 37.0 g/dL LAB HEMETOLOGY METHOD 07/24/2024 7:30 AM [facility] RDW 21.7(H) 11.0 - 15.0 % LAB HEMETOLOGY METHOD 07/24/2024 7:30 AM [facility] Platelets 174 130 - 400 K/mcL LAB HEMETOLOGY METHOD 07/24/2024 7:30 AM [facility] MPV 10.6 7.0 - 11.0 FL LAB HEMETOLOGY METHOD 07/24/2024 7:30 AM [facility] NRBC 0.0 <1.0 % LAB HEMETOLOGY METHOD 07/24/2024 7:30 AM [facility] NRBC Absolute 0.00 <0.10 K/mcL LAB HEMETOLOGY METHOD 07/24/2024 7:30 AM [facility] Neutrophils Relative 84.4 % LAB HEMETOLOGY METHOD 07/24/2024 7:30 AM [facility] Lymphocytes Relative 6.4 % LAB HEMETOLOGY METHOD 07/24/2024 7:30 AM [facility] Monocytes Relative 8.3 % LAB HEMETOLOGY METHOD 07/24/2024 7:30 AM [facility] Eosinophils Relative 0.0 % LAB HEMETOLOGY METHOD 07/24/2024 7:30 AM [facility] Basophils Relative 0.1 % LAB HEMETOLOGY METHOD 07/24/2024 7:30 AM [facility] Immature Granulocytes Relative 0.8 % LAB HEMETOLOGY METHOD 07/24/2024 7:30 AM [facility] Neutrophils Absolute 11.03(H) 1.50 - 7.00 K/mcL LAB HEMETOLOGY METHOD 07/24/2024 7:30 AM [facility] Lymphocytes Absolute 0.83(L) 1.00 - 5.00 K/mcL LAB HEMETOLOGY METHOD 07/24/2024 7:30 AM [facility] Monocytes Absolute 1.08(H) 0.20 - 1.00 K/mcL LAB HEMETOLOGY METHOD 07/24/2024 7:30 AM [facility] Eosinophils Absolute 0.00 0.00 - 0.50 K/mcL LAB HEMETOLOGY METHOD 07/24/2024 7:30 AM [facility] Basophils Absolute 0.01 0.00 - 0.20 K/mcL LAB HEMETOLOGY METHOD 07/24/2024 7:30 AM [facility] Immature Granulocytes Absolute 0.11(H) 0.00 - 0.03 K/[facility] LAB HEMETOLOGY METHOD 07/24/2024 7:30 AM [facility] Blood Venous blood specimen / Unknown Venipuncture / Unknown 07/24/2024 6:48 AM EST 07/24/2024 7:03 AM EST us [facility] LAB BLOOD ORDERABLES Final R esult [facility] [address] [place] [address], * (ABNORMAL) CBC - Every 3 Days (07/24/2024 6:48 AM EST) WBC 13.1(H) 4.8 - 10.8 K/[facility] LAB HEMETOLOGY METHOD 07/24/2024 7:30 AM [facility] RBC 3.10(L) 3.80 - 4.80 M/[facility] LAB HEMETOLOGY METHOD 07/24/2024 7:30 AM [facility] Hemoglobin 7.7(L) 11.5 - 16.0 g/dL LAB HEMETOLOGY METHOD 07/24/2024 7:30 AM [facility] Hematocrit 25.3(L) 35.0 - 47.0 % LAB HEMETOLOGY METHOD 07/24/2024 7:30 AM [facility] MCV 81.4 79.0 - 98.0 FL LAB HEMETOLOGY METHOD 07/24/2024 7:30 AM [facility] MCH 24.8(L) 27.0 - 32.0 pcg LAB HEMETOLOGY METHOD 07/24/2024 7:30 AM [facility] MCHC 30.4(L) 32.0 - 37.0 g/dL LAB HEMETOLOGY METHOD 07/24/2024 7:30 AM EST [facility] RDW 21.7(H) 11.0 - 15.0 % LAB HEMETOLOGY METHOD 07/24/2024 7:30 AM [facility] Platelets 174 130 - 400 K/mcL LAB HEMETOLOGY METHOD 07/24/2024 7:30 AM EST [facility] MPV 10.6 7.0 - 11.0 FL LAB HEMETOLOGY METHOD 07/24/2024 7:30 AM EST [facility] NRBC 0.0 <1.0 % LAB HEMETOLOGY METHOD 07/24/2024 7:30 AM [facility] NRBC Absolute 0.00 <0.10 K/mcL LAB HEMETOLOGY METHOD 07/24/2024 7:30 AM [facility] Blood Venous blood specimen / Unknown Venipuncture / Unknown 07/24/2024 6:48 AM EST 07/24/2024 7:03 AM EST [facility] LAB BLOOD ORDERABLES Final R esult [facility] [address] [place] [address], * (ABNORMAL) Basic metabolic panel (07/24/2024 6:48 AM EST) Sodium 132(L) 133 - 145 mmol/L LAB CHEMISTRY METHOD 07/24/2024 8:38 AM EST [facility] Potassium 4.1 3.5 - 5.5 mmol/L LAB CHEMISTRY METHOD 07/24/2024 8:38 AM [facility] Chloride 94(L) 96 - 110 mmol/L LAB CHEMISTRY METHOD 07/24/2024 8:38 AM [facility] CO2 29 21 - 32 mmol/L LAB CHEMISTRY METHOD 07/24/2024 8:38 AM [facility] Anion Gap 9 3 - 11 LAB CHEMISTRY METHOD 07/24/2024 8:38 AM [facility] Glucose 286(H) 70 - 100 mg/dL LAB CHEMISTRY METHOD 07/24/2024 8:38 AM [facility] BUN 54(H) 5 - 25 mg/dL LAB CHEMISTRY METHOD 07/24/2024 8:38 AM [facility] Creatinine 2.84(H) 0.50 - 1.10 mg/dL LAB CHEMISTRY METHOD 07/24/2024 8:38 AM [facility] eGFR 16(L) >=60 mL/min/1. 73m2 LAB CHEMISTRY METHOD 07/24/2024 8:38 AM [facility] Comment:Calculation based on the??Chronic Kidney Disease Epidemiology Collaboration (CKD-EPI) equation refit??without adjustment for race. BUN/Creatinine Ratio 19.0 LAB CHEMISTRY METHOD 07/24/2024 8:38 AM [facility] Calcium 8.0(L) 8.5 - 10.5 mg/dL LAB CHEMISTRY METHOD 07/24/2024 8:38 AM [facility] Blood Venous blood specimen / Unknown Venipuncture / Unknown 07/24/2024 6:48 AM EST 07/24/2024 7:03 AM EST Lencho Stuart MD LAB BLOOD ORDERABLES Final R esult [facility] [address] [place] [address], * Heparin and low molecular weight anti Xa level (07/24/2024 12:07 AM EST) Heparin Anti-Xa 0.69 0.30 - 0.70 I Unit/mL LAB COAGULATION METHOD 07/24/2024 12:28 AM [facility] Blood Venous blood specimen / Unknown Venipuncture / Unknown 07/24/2024 12:07 AM EST 07/24/2024 12:17 AM EST Narrative [facility] - 07/24/2024 12:28 AM EST Therapeutic range listed is for Unfractionated Heparin. LMW Heparin therapeutic range: 0.50-1.20 IU/mL us Lencho Stuart MD LAB BLOOD ORDERABLES Final R esult Performing Organization Address City/[facility]/ZIP Co de Phone Number [facility] [address] [place] [address], [place] [phone] * (ABNORMAL) POCT Glucose, blood (07/23/2024 7:35 PM EST) [facility] Glucose POCT 320(H) 70 - 100 mg/dL 07/23/2024 7:35 PM EST [facility] Blood Capillary blood specimen / Unknown 07/23/2024 7:35 PM EST 07/23/2024 7:37 PM EST us Lencho Stuart MD LAB POINT OF CARE TE ST DOCKED DEVICE UNSOLICITED RESULTS Final Result Performing Organization Address [facility]/ZIP Co de Phone Number [facility] [address] [place] [address], [place] [phone] * Transfuse RBC (07/23/2024 6:19 PM EST) [...] Insertion of 18g/10cm Bard Powerglide midline Lot: [id number] Exp: 2025-05-28 Indications: ??Difficult draw with frequent [...] POCT Glucose, blood (07/23/2024 4:30 PM EST) [facility] [address] Glucose POCT 248(H) 70 - 100 mg/dL 07/23/2024 4:31 PM EST [facility] Blood Capillary blood specimen / Unknown 07/23/2024 4:30 PM EST 07/23/2024 4:32 PM EST us Lencho Stuart MD LAB POINT OF CARE TE ST DOCKED DEVICE UNSOLICITED RESULTS Final Result [facility] [address] [place] [address], [place] [phone] * (ABNORMAL) Heparin and low molecular weight anti Xa level (07/23/2024 4:08 PM EST) [facility] [address] Heparin Anti-Xa 0.82(H) 0.30 - 0.70 I Unit/mL LAB COAGULATION METHOD 07/23/2024 4:33 PM EST [facility] Blood Venous blood specimen / Unknown Venipuncture / Unknown 07/23/2024 4:08 PM EST 07/23/2024 4:24 PM EST Narrative [facility] - 07/23/2024 4:33 PM EST Therapeutic range listed is for Unfractionated Heparin. LMW Heparin therapeutic range: 0.50-1.20 IU/mL us Lencho Stuart MD LAB BLOOD ORDERABLES Final R esult Performing Organization Address City/[facility]/ZIP Co de Phone Number [facility] [address] [place] [address], [place] [phone] * Type and screen (07/23/2024 12:31 PM EST) ABO Group O 07/23/2024 2:33 PM EST [facility] Rh Type Positive 07/23/2024 2:33 PM EST [facility] Antibody Screen Negative 07/23/2024 2:33 PM EST [facility] Blood Venous blood specimen / Unknown Venipuncture / Unknown 07/23/2024 12:31 PM EST 07/23/2024 12:50 PM EST us Lencho Stuart MD LAB BLOOD BANK TEST ORDERABL ES Final Result Performing Organization Address [facility] Co de Phone Number [facility] [address] [place] [address], [place] [phone] * (ABNORMAL) POCT Glucose, blood (07/23/2024 12:12 PM EST) Glucose POCT 204(H) 70 - 100 mg/dL 07/23/2024 12:13 PM EST [facility] Blood Capillary blood specimen / Unknown 07/23/2024 12:12 PM EST 07/23/2024 12:14 PM EST us Lencho Stuart MD LAB POINT OF CARE TE ST DOCKED DEVICE UNSOLICITED RESULTS Final Result Performing Organization Address City/[facility]/ZIP Co de Phone Number [facility] [address] [place] [address], * Prepare RBC: 1 Units (07/23/2024 11:14 AM EST) Product Code [id number] 07/23/2024 3:38 PM EST [facility] Unit Number [id number] 07/23/19 3:38 PM EST [facility] Crossmatch Compatible 07/23/2024 2:36 PM EST [facility] Dispense Status Transfused 07/23/2024 3:38 PM [facility] Unit ABO Rh OPOS 07/23/2024 3:38 PM [facility] Unit Expiration Date Time [id number] 07/23/2024 3:38 PM [facility] Unit Blood Type 5100 07/23/2024 3:38 PM [facility] Blood Venous blood specimen / Unknown 07/23/2024 11:14 AM EST 07/23/2024 12:50 PM EST Estdimas Stuart MD BLOOD BANK PRODUCT ORDERABLE S Final Result [facility] [address] [place] [address], [place] [phone] * (ABNORMAL) Heparin and low molecular weight anti Xa level (07/23/2024 8:40 AM EST) Heparin Anti-Xa 0.77(H) 0.30 - 0.70 I Unit/mL LAB COAGULATION METHOD 07/23/2024 9:05 AM EST [facility] Blood Venous blood specimen / Unknown Venipuncture / Unknown 07/23/2024 8:40 AM EST 07/23/2024 8:47 AM EST Narrative [facility] - 07/23/2024 9:05 AM EST Therapeutic range listed is for Unfractionated Heparin. LMW Heparin therapeutic range: 0.50-1.20 IU/mL Lencho Stuart MD LAB BLOOD ORDERABLES Final R esult [facility] [address] [place] [address], [place] [phone] * (ABNORMAL) CBC auto differential (07/23/2024 5:44 AM EST) WBC 11.6(H) 4.8 - 10.8 K/mcL LAB HEMETOLOGY METHOD 07/23/2024 7:10 AM [facility] RBC 2.80(L) 3.80 - 4.80 M/mcL LAB HEMETOLOGY METHOD 07/23/2024 7:10 AM [facility] Hemoglobin 6.9(L) 11.5 - 16.0 g/dL LAB HEMETOLOGY METHOD 07/23/2024 7:10 AM [facility] Hematocrit 23.0(L) 35.0 - 47.0 % LAB HEMETOLOGY METHOD 07/23/2024 7:10 AM [facility] MCV 81.6 79.0 - 98.0 FL LAB HEMETOLOGY METHOD 07/23/2024 7:10 AM [facility] MCH 24.5(L) 27.0 - 32.0 pcg LAB HEMETOLOGY METHOD 07/23/2024 7:10 AM [facility] MCHC 30.0(L) 32.0 - 37.0 g/dL LAB HEMETOLOGY METHOD 07/23/2024 7:10 AM [facility] RDW 23.3(H) 11.0 - 15.0 % LAB HEMETOLOGY METHOD 07/23/2024 7:10 AM [facility] Platelets 206 130 - 400 K/mcL LAB HEMETOLOGY METHOD 07/23/2024 7:10 AM [facility] MPV 10.5 7.0 - 11.0 FL LAB HEMETOLOGY METHOD 07/23/2024 7:10 AM [facility] NRBC 0.0 <1.0 % LAB HEMETOLOGY METHOD 07/23/2024 7:10 AM [facility] NRBC Absolute 0.00 <0.10 K/mcL LAB HEMETOLOGY METHOD 07/23/2024 7:10 AM [facility] Neutrophils Relative 90.8 % LAB HEMETOLOGY METHOD 07/23/2024 7:10 AM [facility] Lymphocytes Relative 3.4 % LAB HEMETOLOGY METHOD 07/23/2024 7:10 AM [facility] Monocytes Relative 5.0 % LAB HEMETOLOGY METHOD 07/23/2024 7:10 AM [facility] Eosinophils Relative 0.0 % LAB HEMETOLOGY METHOD 07/23/2024 7:10 AM [facility] Basophils Relative 0.1 % LAB HEMETOLOGY METHOD 07/23/2024 7:10 AM [facility] Immature Granulocytes Relative 0.7 % LAB HEMETOLOGY METHOD 07/23/2024 7:10 AM [facility] Neutrophils Absolute 10.52(H) 1.50 - 7.00 K/mcL LAB HEMETOLOGY METHOD 07/23/2024 7:10 AM [facility] Lymphocytes Absolute 0.39(L) 1.00 - 5.00 K/mcL LAB HEMETOLOGY METHOD 07/23/2024 7:10 AM [facility] Monocytes Absolute 0.58 0.20 - 1.00 K/mcL LAB HEMETOLOGY METHOD 07/23/2024 7:10 AM EST [facility] Eosinophils Absolute 0.00 0.00 - 0.50 K/[facility] LAB HEMETOLOGY METHOD 07/23/2024 7:10 AM EST [facility] Basophils Absolute 0.01 0.00 - 0.20 K/[facility] LAB HEMETOLOGY METHOD 07/23/2024 7:10 AM EST [facility] Immature Granulocytes Absolute 0.08(H) 0.00 - 0.03 K/[facility] LAB HEMETOLOGY METHOD 07/23/2024 7:10 AM EST [facility] Blood Venous blood specimen / Unknown Venipuncture / Unknown 07/23/2024 5:44 AM EST 07/23/2024 6:50 AM EST us [facility] LAB BLOOD ORDERABLES Final R esult [facility] [address] [place] [address], * (ABNORMAL) Basic metabolic panel (07/23/2024 5:44 AM EST) Sodium 130(L) 133 - 145 mmol/L LAB CHEMISTRY METHOD 07/23/2024 8:36 AM [facility] Potassium 5.5 3.5 - 5.5 mmol/L LAB CHEMISTRY METHOD 07/23/2024 8:36 AM [facility] Chloride 92(L) 96 - 110 mmol/L LAB CHEMISTRY METHOD 07/23/2024 8:36 AM [facility] CO2 29 21 - 32 mmol/L LAB CHEMISTRY METHOD 07/23/2024 8:36 AM [facility] Anion Gap 9 3 - 11 LAB CHEMISTRY METHOD 07/23/2024 8:36 AM [facility] Glucose 378(H) 70 - 100 mg/dL LAB CHEMISTRY METHOD 07/23/2024 8:36 AM [facility] BUN 76(H) 5 - 25 mg/dL LAB CHEMISTRY METHOD 07/23/2024 8:36 AM [facility] Creatinine 4.16(H) 0.50 - 1.10 mg/dL LAB CHEMISTRY METHOD 07/23/2024 8:36 AM [facility] eGFR 10(L) >=60 mL/min/1. 73m2 LAB CHEMISTRY METHOD 07/23/2024 8:36 AM [facility] Comment:Calculation based on the??Chronic Kidney Disease Epidemiology Collaboration (CKD-EPI) equation refit??without adjustment for race. BUN/Creatinine Ratio 18.3 LAB CHEMISTRY METHOD 07/23/2024 8:36 AM [facility] Calcium 7.9(L) 8.5 - 10.5 mg/dL LAB CHEMISTRY METHOD 07/23/2024 8:36 AM [facility] Blood Venous blood specimen / Unknown Venipuncture / Unknown 07/23/2024 5:44 AM EST 07/23/2024 6:50 AM EST us [facility] LAB BLOOD ORDERABLES Final R esult [facility] [address] [place] [address], * (ABNORMAL) Heparin and low molecular weight anti Xa level (07/23/2024 2:05 AM EST) Heparin Anti-Xa 0.87(H) 0.30 - 0.70 I Unit/mL LAB COAGULATION METHOD 07/23/2024 2:20 AM [facility] Blood Venous blood specimen / Unknown Venipuncture / Unknown 07/23/2024 2:05 AM EST 07/23/2024 2:10 AM EST [facility] - 07/23/2024 2:20 AM EST Therapeutic range listed is for Unfractionated Heparin. LMW Heparin therapeutic range: 0.50-1.20 IU/mL Lencho Stuart MD LAB BLOOD ORDERABLES Final R esult Performing Organization Address City/[facility]/ZIP Co de Phone Number [facility] [address] [place] [address], [place] [phone] * (ABNORMAL) POCT Glucose, blood (07/22/2024 8:10 PM EST) [facility] [address] Glucose POCT 304(H) 70 - 100 mg/dL 07/22/2024 8:10 PM EST [facility] Blood Capillary blood specimen / Unknown 07/22/2024 8:10 PM EST 07/22/2024 8:11 PM EST Lencho Stuart MD LAB POINT OF CARE TE ST DOCKED DEVICE UNSOLICITED RESULTS Final Result Performing Organization Address [facility] Co de Phone Number [facility] [address] [place] [address], [place] [phone] * (ABNORMAL) Hemoglobin and hematocrit (07/22/2024 6:40 PM EST) [facility] [address] Hemoglobin 7.1(L) 11.5 - 16.0 g/dL LAB HEMETOLOGY METHOD 07/22/2024 7:24 PM EST [facility] Hematocrit 23.3(L) 35.0 - 47.0 % LAB HEMETOLOGY METHOD 07/22/2024 7:24 PM EST [facility] Blood Venous blood specimen / Unknown Venipuncture / Unknown 07/22/2024 6:40 PM EST 07/22/2024 7:20 PM EST Fela Palomo MD LAB BLOOD ORDERABLES Final Resu lt [facility] [address] [place] [address], [place] [phone] * (ABNORMAL) POCT Glucose, blood (07/22/2024 4:10 PM EST) Glucose POCT 267(H) 70 - 100 mg/dL 07/22/2024 4:11 PM EST [facility] Blood Capillary blood specimen / Unknown 07/22/2024 4:10 PM EST 07/22/2024 4:12 PM EST us [facility] LAB POINT OF CARE TE ST DOCKED DEVICE UNSOLICITED RESULTS Final Result [facility] [address] [place] [address], [place] [phone] * IR Bx Ndl Renal Perc Left [...] Signed Date: 07/22/2024 17:00 ET Workstation ID: [id number] Transcribed By: Self Edit Transcribed Date: 07/22/2024 [...] of fentanyl administered during the procedure. Scanner: [employer] [address] Dose reduction technique: [...] of fentanyl administered during the procedure. Scanner: [employer] [address] Dose reduction technique: [...] technique. -------- FINAL REPORT -------- Dictated By: eFla Palomo Dictated Date: 07/22/2024 16:58 ET Assigned Physician: Fela Palomo Reviewed and Electronically Signed By: Fela Palomo Signed Date: 07/22/2024 17:00 ET Workstation ID: [id number] Transcribed By: Self Edit Transcribed Date: 07/22/2024 16:58 ET us Miguel Quiles MD IMG IR PROCEDURES Final Result * AP Kidney biopsy (07/22/2024 3:13 PM EST) Scan Result See Scanned Result 08/15/2024 3:54 PM EST EXTERNAL LAB (NON-INTERFAC ED) Tissue Left kidney structure / Unknown 07/22/2024 3:13 PM EST 07/22/2024 3:41 PM EST Fela Palomo MD LAB PATHOLOGY ORDERABLES Final Result EXTERNAL LAB (NON-INTERFACED) * Tissue exam (07/22/2024 3:13 PM EST) Addendum [facility] Kidney (addendum) This case was sent to [facility], Department of Pathology, [place], [place] (CLIA: [id number]). 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, pauci-immune and Anca-associated -Clinical history of positive PR3-Anca -Active cellular crescents involving 11 of 15 (75%) viable glomeruli; the crescentic inflammation is exuberant, with significant destruction of the glomeruli -Severe transmural fibrinoid necrosis is present in multiple arteries -Immunofluorescence and electron microscopy studies reveal no significant immune deposits in the glomeruli Severe acute interstitial nephritis and acute tubular necrosis, anca-associated Chronic changes of the parenchyma, including: -Focal global glomerulosclerosis (17% of glomeruli) -Degree of interstitial fibrosis and tubular atrophy cannot be assessed due to significant inflammation -Severe arterial and arteriolar sclerosis The case was discussed with Dr. Quiles over the phone on 07/28/2024 at 11:31 am. Final Diagnosis by Aaliyah Santoyo M.D., Ph.D., Electronically signed on July at 05:05:13PM (See scanned report for full kidney biopsy diagnosis from [place], [place]) 08/12/2024 10:52 AM [facility] Addendum electronically signed by Mitchell Prince MD on 08/12/2024 at 10:52 AM Final Diagnosis Kidney, left-biopsies for routine, immunofluorescence and electron microscopy: -Submitted in toto to [facility] -See addendum report 08/12/2024 10:52 AM [facility] Gross Description A. Kidney, Left, : Labeled kidney L . Received fresh in saline are 3 perez-pink soft tissue cores, ranging from 0.7 x 0.1 cm to 1.7 x 0.1 cm, which are transfered to formalin for light microscopy, Mick fixative for Immunofluorescence, and Glutaraldehyde for electron microscopy. The specimen is entirely submitted to [facility] for analysis. ELOISE 08/12/2024 10:52 AM [facility] Disclaimer Unless otherwise specified, all tissue is 10% NB formalin fixed and paraffin embedded. 08/12/2024 10:52 AM [facility] Tissue Left kidney structure / Unknown 07/22/2024 3:13 PM EST 07/22/2024 3:39 PM EST Fela Palomo MD LAB PATHOLOGY ORDERABLES Edited Result - Final Performing Organization Address [facility]/ZIP Co de Phone Number [facility] [address] [place] [address], [place] [phone] * (ABNORMAL) Prothrombin time with INR (07/22/2024 11:00 AM EST) Protime 16.3(H) 10.6 - 13.9 sec LAB COAGULATION METHOD 07/22/2024 1:11 PM EST [facility] INR 1.3 LAB COAGULATION METHOD 07/22/2024 1:11 PM EST [facility] Blood Venous blood specimen / Unknown Venipuncture / Unknown 07/22/2024 11:00 AM EST 07/22/2024 11:22 AM EST Lencho Stuart MD LAB BLOOD ORDERABLES Final R esult Performing Organization Address City/[facility]/ZIP Co de Phone Number [facility] [address] [place] [address], [place] [phone] * (ABNORMAL) Anti-Xa - Every 6 Hours (07/22/2024 11:00 AM EST) Heparin Anti-Xa <0.04(L) 0.30 - 0.70 I Unit/mL LAB COAGULATION METHOD 07/22/2024 12:11 PM EST [facility] Blood Venous blood specimen / Unknown Venipuncture / Unknown 07/22/2024 11:00 AM EST 07/22/2024 11:22 AM EST Narrative [facility] - 07/22/2024 12:11 PM EST Therapeutic range listed is for Unfractionated Heparin. LMW Heparin therapeutic range: 0.50-1.20 IU/mL us Lencho Stuart MD LAB BLOOD ORDERABLES Final R esult Performing Organization Address City/[facility]/ZIP Co de Phone Number [facility] [address] [place] [address], [place] [phone] * Lavender tube (07/22/2024 10:53 AM EST) Extra Tube Hold for add-ons. 07/22/2024 1:01 PM EST [facility] Comment:Auto resulted. Blood Venous blood specimen / Unknown 07/22/2024 10:53 AM EST 07/22/2024 11:25 AM EST us Lencho Stuart MD LAB BLOOD ORDERABLES Final R esult Performing Organization Address [facility]/ZIP Co de Phone Number [facility] [address] [place] [address], [place] [phone] * SST tube (07/22/2024 10:53 AM EST) Extra Tube Hold for add-ons. 07/22/2024 1:01 PM EST [facility] Comment:Auto resulted. Blood Venous blood specimen / Unknown 07/22/2024 10:53 AM EST 07/22/2024 11:25 AM EST us Lencho Stuart MD LAB BLOOD ORDERABLES Final R esult Performing Organization Address City/[facility]/ZIP Co de Phone Number [facility] [address] [place] [address], [place] [phone] * (ABNORMAL) POCT Glucose, blood (07/22/2024 10:48 AM EST) Glucose POCT 280(H) 70 - 100 mg/dL 07/22/2024 11:08 AM [facility] Blood Capillary blood specimen / Unknown 07/22/2024 10:48 AM EST 07/22/2024 11:09 AM EST us Lencho Stuart MD LAB POINT OF CARE TE ST DOCKED DEVICE UNSOLICITED RESULTS Final Result Performing Organization Address [facility]/ZIP Co de Phone Number [facility] [address] [place] [address], [place] [phone] * (ABNORMAL) POCT Glucose, blood (07/22/2024 8:10 AM EST) Glucose POCT 300(H) 70 - 100 mg/dL 07/22/2024 8:11 AM EST [facility] Blood Capillary blood specimen / Unknown 07/22/2024 8:10 AM EST 07/22/2024 8:13 AM EST us Lencho Stuart MD LAB POINT OF CARE TE ST DOCKED DEVICE UNSOLICITED RESULTS Final Result Performing Organization Address [facility] de Phone Number [facility] [address] [place] [address], [place] [phone] * (ABNORMAL) POCT Glucose, blood (07/22/2024 3:43 AM EST) Glucose POCT 276(H) 70 - 100 mg/dL 07/22/2024 3:44 AM EST [facility] Blood Capillary blood specimen / Unknown 07/22/2024 3:43 AM EST 07/22/2024 3:45 AM EST us Lencho Stuart MD LAB POINT OF CARE TE ST DOCKED DEVICE UNSOLICITED RESULTS Final Result Performing Organization Address [facility]/ZIP Co de Phone Number [facility] [address] [place] [address], [place] [phone] * (ABNORMAL) CBC auto differential (07/22/2024 3:11 AM EST) [facility] [address] WBC 9.6 4.8 - 10.8 K/mcL LAB HEMETOLOGY METHOD 07/22/2024 3:32 AM [facility] RBC 3.00(L) 3.80 - 4.80 M/mcL LAB HEMETOLOGY METHOD 07/22/2024 3:32 AM [facility] Hemoglobin 7.2(L) 11.5 - 16.0 g/dL LAB HEMETOLOGY METHOD 07/22/2024 3:32 AM [facility] Hematocrit 24.3(L) 35.0 - 47.0 % LAB HEMETOLOGY METHOD 07/22/2024 3:32 AM [facility] MCV 80.5 79.0 - 98.0 FL LAB HEMETOLOGY METHOD 07/22/2024 3:32 AM [facility] MCH 23.8(L) 27.0 - 32.0 pcg LAB HEMETOLOGY METHOD 07/22/2024 3:32 AM [facility] MCHC 29.6(L) 32.0 - 37.0 g/dL LAB HEMETOLOGY METHOD 07/22/2024 3:32 AM [facility] RDW 23.6(H) 11.0 - 15.0 % LAB HEMETOLOGY METHOD 07/22/2024 3:32 AM [facility] Platelets 169 130 - 400 K/mcL LAB HEMETOLOGY METHOD 07/22/2024 3:32 AM [facility] MPV 9.7 7.0 - 11.0 FL LAB HEMETOLOGY METHOD 07/22/2024 3:32 AM [facility] NRBC 0.0 <1.0 % LAB HEMETOLOGY METHOD 07/22/2024 3:32 AM [facility] NRBC Absolute 0.00 <0.10 K/mcL LAB HEMETOLOGY METHOD 07/22/2024 3:32 AM [facility] Neutrophils Relative 95.2 % LAB HEMETOLOGY METHOD 07/22/2024 3:32 AM [facility] Lymphocytes Relative 3.3 % LAB HEMETOLOGY METHOD 07/22/2024 3:32 AM [facility] Monocytes Relative 0.7 % LAB HEMETOLOGY METHOD 07/22/2024 3:32 AM [facility] Eosinophils Relative 0.0 % LAB HEMETOLOGY METHOD 07/22/2024 3:32 AM [facility] Basophils Relative 0.1 % LAB HEMETOLOGY METHOD 07/22/2024 3:32 AM [facility] Immature Granulocytes Relative 0.7 % LAB HEMETOLOGY METHOD 07/22/2024 3:32 AM [facility] Neutrophils Absolute 9.13(H) 1.50 - 7.00 K/mcL LAB HEMETOLOGY METHOD 07/22/2024 3:32 AM [facility] Lymphocytes Absolute 0.32(L) 1.00 - 5.00 K/mcL LAB HEMETOLOGY METHOD 07/22/2024 3:32 AM [facility] Monocytes Absolute 0.07(L) 0.20 - 1.00 K/mcL LAB HEMETOLOGY METHOD 07/22/2024 3:32 AM [facility] Eosinophils Absolute 0.00 0.00 - 0.50 K/mcL LAB HEMETOLOGY METHOD 07/22/2024 3:32 AM [facility] Basophils Absolute 0.01 0.00 - 0.20 K/mcL LAB HEMETOLOGY METHOD 07/22/2024 3:32 AM [facility] Immature Granulocytes Absolute 0.07(H) 0.00 - 0.03 K/mcL LAB HEMETOLOGY METHOD 07/22/2024 3:32 AM [facility] Blood Venous blood specimen / Unknown Venipuncture / Unknown 07/22/2024 3:11 AM EST 07/22/2024 3:23 AM EST Lencho Stuart MD LAB BLOOD ORDERABLES Final R esult [facility] [address] [place] [address], * (ABNORMAL) Basic metabolic panel (07/22/2024 3:11 AM EST) Sodium 132(L) 133 - 145 mmol/L LAB CHEMISTRY METHOD 07/22/2024 4:20 AM [facility] Potassium 5.0 3.5 - 5.5 mmol/L LAB CHEMISTRY METHOD 07/22/2024 4:20 AM [facility] Chloride 95(L) 96 - 110 mmol/L LAB CHEMISTRY METHOD 07/22/2024 4:20 AM [facility] CO2 27 21 - 32 mmol/L LAB CHEMISTRY METHOD 07/22/2024 4:20 AM [facility] Anion Gap 10 3 - 11 LAB CHEMISTRY METHOD 07/22/2024 4:20 AM [facility] Glucose 264(H) 70 - 100 mg/dL LAB CHEMISTRY METHOD 07/22/2024 4:20 AM [facility] BUN 40(H) 5 - 25 mg/dL LAB CHEMISTRY METHOD 07/22/2024 4:20 AM [facility] Creatinine 2.87(H) 0.50 - 1.10 mg/dL LAB CHEMISTRY METHOD 07/22/2024 4:20 AM [facility] eGFR 16(L) >=60 mL/min/1. 73m2 LAB CHEMISTRY METHOD 07/22/2024 4:20 AM [facility] Comment:Calculation based on the??Chronic Kidney Disease Epidemiology Collaboration (CKD-EPI) equation refit??without adjustment for race. BUN/Creatinine Ratio 13.9 LAB CHEMISTRY METHOD 07/22/2024 4:20 AM EST [facility] Calcium 7.4(L) 8.5 - 10.5 mg/dL LAB CHEMISTRY METHOD 07/22/2024 4:20 AM EST [facility] Blood Venous blood specimen / Unknown Venipuncture / Unknown 07/22/2024 3:11 AM EST 07/22/2024 4:20 AM EST Lencho Stuart MD LAB BLOOD ORDERABLES Final R esult [facility] [address] [place] [address], [place] [phone] * (ABNORMAL) Anti-Xa - Every 6 Hours (07/22/2024 3:09 AM EST) Heparin Anti-Xa 0.26(L) 0.30 - 0.70 I Unit/mL LAB COAGULATION METHOD 07/22/2024 3:33 AM EST [facility] Blood Venous blood specimen / Unknown Venipuncture / Unknown 07/22/2024 3:09 AM EST 07/22/2024 3:23 AM EST Narrative [facility] - 07/22/2024 3:33 AM EST Therapeutic range listed is for Unfractionated Heparin. LMW Heparin therapeutic range: 0.50-1.20 IU/mL Lencho Stuart MD LAB BLOOD ORDERABLES Final R esult [facility] [address] [place] [address], [place] [phone] * (ABNORMAL) POCT Glucose, blood (07/21/2024 8:10 PM EST) Glucose POCT 172(H) 70 - 100 mg/dL 07/21/2024 8:11 PM EST [facility] Blood Capillary blood specimen / Unknown 07/21/2024 8:10 PM EST 07/21/2024 8:12 PM EST us Lencho Stuart MD LAB POINT OF CARE TE ST DOCKED DEVICE UNSOLICITED RESULTS Final Result [facility] [address] [place] [address], [place] [phone] * (ABNORMAL) Heparin and low molecular weight anti Xa level (07/21/2024 8:02 PM EST) Heparin Anti-Xa 0.27(L) 0.30 - 0.70 I Unit/mL LAB COAGULATION METHOD 07/21/2024 8:37 PM EST [facility] Blood Venous blood specimen / Unknown Venipuncture / Unknown 07/21/2024 8:02 PM EST 07/21/2024 8:26 PM EST Narrative [facility] - 07/21/2024 8:37 PM EST Therapeutic range listed is for Unfractionated Heparin. LMW Heparin therapeutic range: 0.50-1.20 IU/mL us Lencho Stuart MD LAB BLOOD ORDERABLES Final R esult [facility] [address] [place] [address], [place] [phone] * (ABNORMAL) POCT Glucose, blood (07/21/2024 5:04 PM EST) Glucose POCT 175(H) 70 - 100 mg/dL 07/21/2024 5:05 PM EST [facility] Blood Capillary blood specimen / Unknown 07/21/2024 5:04 PM EST 07/21/2024 5:06 PM EST us Lencho Stuart MD LAB POINT OF CARE TE ST DOCKED DEVICE UNSOLICITED RESULTS Final Result Performing Organization Address City/[facility]/ZIP Co de Phone Number [facility] [address] [place] [address], [place] [phone] * POCT Glucose, blood (07/21/2024 1:57 PM EST) [facility] [address] Glucose POCT 96 70 - 100 mg/dL 07/21/2024 1:58 PM [facility] Blood Capillary blood specimen / Unknown 07/21/2024 1:57 PM EST 07/21/2024 1:59 PM EST Lencho Stuart MD LAB POINT OF CARE TE ST DOCKED DEVICE UNSOLICITED RESULTS Final Result Performing Organization Address [facility]/ZIP Co de Phone Number [facility] [address] [place] [address], [place] [phone] * (ABNORMAL) Complete blood count (07/21/2024 8:55 AM EST) [facility] [address] WBC 18.9(H) 4.8 - 10.8 K/mcL LAB HEMETOLOGY METHOD 07/21/2024 9:21 AM [facility] RBC 3.00(L) 3.80 - 4.80 M/mcL LAB HEMETOLOGY METHOD 07/21/2024 9:21 AM [facility] Hemoglobin 7.3(L) 11.5 - 16.0 g/dL LAB HEMETOLOGY METHOD 07/21/2024 9:21 AM [facility] Hematocrit 23.7(L) 35.0 - 47.0 % LAB HEMETOLOGY METHOD 07/21/2024 9:21 AM [facility] MCV 80.3 79.0 - 98.0 FL LAB HEMETOLOGY METHOD 07/21/2024 9:21 AM [facility] MCH 24.7(L) 27.0 - 32.0 pcg LAB HEMETOLOGY METHOD 07/21/2024 9:21 AM EST [facility] MCHC 30.8(L) 32.0 - 37.0 g/dL LAB HEMETOLOGY METHOD 07/21/2024 9:21 AM [facility] RDW 23.7(H) 11.0 - 15.0 % LAB HEMETOLOGY METHOD 07/21/2024 9:21 AM EST [facility] Platelets 195 130 - 400 K/mcL LAB HEMETOLOGY METHOD 07/21/2024 9:21 AM [facility] MPV 10.2 7.0 - 11.0 FL LAB HEMETOLOGY METHOD 07/21/2024 9:21 AM [facility] NRBC 0.0 <1.0 % LAB HEMETOLOGY METHOD 07/21/2024 9:21 AM EST [facility] NRBC Absolute 0.00 <0.10 K/mcL LAB HEMETOLOGY METHOD 07/21/2024 9:21 AM [facility] Blood Venous blood specimen / Unknown Venipuncture / Unknown 07/21/2024 8:55 AM EST 07/21/2024 9:11 AM EST us [facility] S[facility] LAB BLOOD ORDERABLES Final R esult [facility] [address] [place] [address], * (ABNORMAL) Basic metabolic panel (07/21/2024 8:55 AM EST) Sodium 130(L) 133 - 145 mmol/L LAB CHEMISTRY METHOD 07/21/2024 9:50 AM EST [facility] Potassium 4.8 3.5 - 5.5 mmol/L LAB CHEMISTRY METHOD 07/21/2024 9:50 AM [facility] Chloride 92(L) 96 - 110 mmol/L LAB CHEMISTRY METHOD 07/21/2024 9:50 AM [facility] CO2 29 21 - 32 mmol/L LAB CHEMISTRY METHOD 07/21/2024 9:50 AM [facility] Anion Gap 9 3 - 11 LAB CHEMISTRY METHOD 07/21/2024 9:50 AM [facility] Glucose 142(H) 70 - 100 mg/dL LAB CHEMISTRY METHOD 07/21/2024 9:50 AM [facility] BUN 63(H) 5 - 25 mg/dL LAB CHEMISTRY METHOD 07/21/2024 9:50 AM [facility] Creatinine 5.05(H) 0.50 - 1.10 mg/dL LAB CHEMISTRY METHOD 07/21/2024 9:50 AM [facility] eGFR 8(L) >=60 mL/min/1. 73m2 LAB CHEMISTRY METHOD 07/21/2024 9:50 AM [facility] Comment:Calculation based on the??Chronic Kidney Disease Epidemiology Collaboration (CKD-EPI) equation refit??without adjustment for race. BUN/Creatinine Ratio 12.5 LAB CHEMISTRY METHOD 07/21/2024 9:50 AM [facility] Calcium 7.6(L) 8.5 - 10.5 mg/dL LAB CHEMISTRY METHOD 07/21/2024 9:50 AM [facility] Blood Venous blood specimen / Unknown Venipuncture / Unknown 07/21/2024 8:55 AM EST 07/21/2024 9:10 AM EST us Estdimas Stuart MD LAB BLOOD ORDERABLES Final R esult [facility] [address] [place] [address], * (ABNORMAL) POCT Glucose, blood (07/21/2024 8:03 AM EST) Glucose POCT 159(H) 70 - 100 mg/dL 07/21/2024 8:04 AM EST [facility] Blood Capillary blood specimen / Unknown 07/21/2024 8:03 AM EST 07/21/2024 8:05 AM EST us Lencho Stuart MD LAB POINT OF CARE TE ST DOCKED DEVICE UNSOLICITED RESULTS Final Result Performing Organization Address City/[facility]/ZIP Co de Phone Number [facility] [address] [place] [address], [place] [phone] * SST tube (07/21/2024 5:41 AM EST) Pathologist [facility] Extra Tube Hold for add-ons. 07/21/2024 9:01 AM EST [facility] Comment:Auto resulted. Blood Venous blood specimen / Unknown 07/21/2024 5:41 AM EST 07/21/2024 7:02 AM EST us Lencho Stuart MD LAB BLOOD ORDERABLES Final R esult [facility] [address] [place] [address], [place] [phone] * (ABNORMAL) CBC - Every 3 Days (07/21/2024 5:12 AM EST) WBC 18.8(H) 4.8 - 10.8 K/[facility] LAB HEMETOLOGY METHOD 07/21/2024 7:22 AM EST [facility] RBC 2.90(L) 3.80 - 4.80 M/[facility] LAB HEMETOLOGY METHOD 07/21/2024 7:22 AM EST [facility] Hemoglobin 7.3(L) 11.5 - 16.0 g/dL LAB HEMETOLOGY METHOD 07/21/2024 7:22 AM [facility] Hematocrit 23.6(L) 35.0 - 47.0 % LAB HEMETOLOGY METHOD 07/21/2024 7:22 AM [facility] MCV 81.1 79.0 - 98.0 FL LAB HEMETOLOGY METHOD 07/21/2024 7:22 AM [facility] MCH 25.1(L) 27.0 - 32.0 pcg LAB HEMETOLOGY METHOD 07/21/2024 7:22 AM EST [facility] MCHC 30.9(L) 32.0 - 37.0 g/dL LAB HEMETOLOGY METHOD 07/21/2024 7:22 AM [facility] RDW 23.7(H) 11.0 - 15.0 % LAB HEMETOLOGY METHOD 07/21/2024 7:22 AM [facility] Platelets 200 130 - 400 K/mcL LAB HEMETOLOGY METHOD 07/21/2024 7:22 AM [facility] MPV 10.5 7.0 - 11.0 FL LAB HEMETOLOGY METHOD 07/21/2024 7:22 AM [facility] NRBC 0.0 <1.0 % LAB HEMETOLOGY METHOD 07/21/2024 7:22 AM [facility] NRBC Absolute 0.00 <0.10 K/mcL LAB HEMETOLOGY METHOD 07/21/2024 7:22 AM [facility] Blood Venous blood specimen / Unknown Venipuncture / Unknown 07/21/2024 5:12 AM EST 07/21/2024 6:58 AM EST [facility] LAB BLOOD ORDERABLES Final R esult [facility] [address] [place] [address], [place] [phone] * (ABNORMAL) POCT Glucose, blood (07/21/2024 2:47 AM EST) Glucose POCT 144(H) 70 - 100 mg/dL 07/21/2024 2:48 AM EST [facility] Blood Capillary blood specimen / Unknown 07/21/2024 2:47 AM EST 07/21/2024 2:49 AM EST Lencho Stuart MD LAB POINT OF CARE TE ST DOCKED DEVICE UNSOLICITED RESULTS Final Result [facility] [address] [place] [address], [place] [phone] * (ABNORMAL) POCT Glucose, blood (07/20/2024 8:11 PM EST) Glucose POCT 140(H) 70 - 100 mg/dL 07/20/2024 8:12 PM EST [facility] Blood Capillary blood specimen / Unknown 07/20/2024 8:11 PM EST 07/20/2024 8:13 PM EST Lencho Stuart MD LAB POINT OF CARE TE ST DOCKED DEVICE UNSOLICITED RESULTS Final Result [facility] [address] [place] [address], [place] [phone] * (ABNORMAL) Anti-Xa - Every 6 Hours (07/20/2024 7:45 PM EST) Heparin Anti-Xa <0.04(L) 0.30 - 0.70 I Unit/mL LAB COAGULATION METHOD 07/20/2024 9:02 PM EST [facility] Blood Venous blood specimen / Unknown Venipuncture / Unknown 07/20/2024 7:45 PM EST 07/20/2024 8:01 PM EST Narrative [facility] - 07/20/2024 9:02 PM EST Therapeutic range listed is for Unfractionated Heparin. LMW Heparin therapeutic range: 0.50-1.20 IU/mL Lencho Stuart MD LAB BLOOD ORDERABLES Final R esult Performing Organization Address [facility]/ZIP Co de Phone Number [facility] [address] [place] [address], [place] [phone] * (ABNORMAL) POCT Glucose, blood (07/20/2024 4:21 PM EST) Glucose POCT 167(H) 70 - 100 mg/dL 07/20/2024 4:23 PM EST [facility] Blood Capillary blood specimen / Unknown 07/20/2024 4:21 PM EST 07/20/2024 4:24 PM EST Lencho Stuart MD LAB POINT OF CARE TE ST DOCKED DEVICE UNSOLICITED RESULTS Final Result Performing Organization Address [facility] Co de Phone Number [facility] [address] [place] [address], [place] [phone] * Activated Partial Thromboplastin Time - STAT (07/20/2024 2:30 PM EST) aPTT 30.0 24.1 - 39.3 sec LAB COAGULATION METHOD 07/20/2024 3:06 PM EST [facility] Blood Venous blood specimen / Unknown Venipuncture / Unknown 07/20/2024 2:30 PM EST 07/20/2024 2:52 PM EST Lencho Stuart MD LAB BLOOD ORDERABLES Final R esult Performing Organization Address [facility]/ZIP Co de Phone Number [facility] [address] [place] [address], [place] [phone] * (ABNORMAL) Prothrombin Time with INR - STAT (07/20/2024 2:30 PM EST) Protime 17.6(H) 10.6 - 13.9 sec LAB COAGULATION METHOD 07/20/2024 3:06 PM EST [facility] INR 1.4 LAB COAGULATION METHOD 07/20/2024 3:06 PM EST [facility] Blood Venous blood specimen / Unknown Venipuncture / Unknown 07/20/2024 2:30 PM EST 07/20/2024 2:52 PM EST us Lencho Stuart MD LAB BLOOD ORDERABLES Final R esult [facility] [address] [place] [address], [place] [phone] * (ABNORMAL) POCT Glucose, blood (07/20/2024 11:23 AM EST) Glucose POCT 139(H) 70 - 100 mg/dL 07/20/2024 11:24 AM EST [facility] Blood Capillary blood specimen / Unknown 07/20/2024 11:23 AM EST 07/20/2024 11:26 AM EST us Lencho Stuart MD LAB POINT OF CARE TE ST DOCKED DEVICE UNSOLICITED RESULTS Final Result [facility] [address] [place] [address], [place] [phone] * (ABNORMAL) POCT Glucose, blood (07/20/2024 8:20 AM EST) Glucose POCT 132(H) 70 - 100 mg/dL 07/20/2024 8:20 AM EST [facility] Blood Capillary blood specimen / Unknown 07/20/2024 8:20 AM EST 07/20/2024 8:21 AM EST us Lencho Stuart MD LAB POINT OF CARE TE ST DOCKED DEVICE UNSOLICITED RESULTS Final Result [facility] [address] [place] [address], * (ABNORMAL) CBC auto differential (07/20/2024 5:46 AM EST) WBC 20.9(H) 4.8 - 10.8 K/mcL LAB HEMETOLOGY METHOD 07/20/2024 7:07 AM [facility] RBC 3.00(L) 3.80 - 4.80 M/mcL LAB HEMETOLOGY METHOD 07/20/2024 7:07 AM [facility] Hemoglobin 7.3(L) 11.5 - 16.0 g/dL LAB HEMETOLOGY METHOD 07/20/2024 7:07 AM [facility] Hematocrit 23.6(L) 35.0 - 47.0 % LAB HEMETOLOGY METHOD 07/20/2024 7:07 AM [facility] MCV 77.9(L) 79.0 - 98.0 FL LAB HEMETOLOGY METHOD 07/20/2024 7:07 AM [facility] MCH 24.1(L) 27.0 - 32.0 pcg LAB HEMETOLOGY METHOD 07/20/2024 7:07 AM [facility] MCHC 30.9(L) 32.0 - 37.0 g/dL LAB HEMETOLOGY METHOD 07/20/2024 7:07 AM [facility] RDW 23.9(H) 11.0 - 15.0 % LAB HEMETOLOGY METHOD 07/20/2024 7:07 AM [facility] Platelets 217 130 - 400 K/mcL LAB HEMETOLOGY METHOD 07/20/2024 7:07 AM [facility] MPV 9.8 7.0 - 11.0 FL LAB HEMETOLOGY METHOD 07/20/2024 7:07 AM [facility] NRBC 0.0 <1.0 % LAB HEMETOLOGY METHOD 07/20/2024 7:07 AM [facility] NRBC Absolute 0.00 <0.10 K/mcL LAB HEMETOLOGY METHOD 07/20/2024 7:07 AM [facility] Neutrophils Relative 86.5 % LAB HEMETOLOGY METHOD 07/20/2024 7:07 AM [facility] Lymphocytes Relative 3.8 % LAB HEMETOLOGY METHOD 07/20/2024 7:07 AM [facility] Monocytes Relative 5.5 % LAB HEMETOLOGY METHOD 07/20/2024 7:07 AM [facility] Eosinophils Relative 2.7 % LAB HEMETOLOGY METHOD 07/20/2024 7:07 AM [facility] Basophils Relative 0.2 % LAB HEMETOLOGY METHOD 07/20/2024 7:07 AM [facility] Immature Granulocytes Relative 1.3 % LAB HEMETOLOGY METHOD 07/20/2024 7:07 AM [facility] Neutrophils Absolute 18.10(H) 1.50 - 7.00 K/mcL LAB HEMETOLOGY METHOD 07/20/2024 7:07 AM [facility] Lymphocytes Absolute 0.80(L) 1.00 - 5.00 K/mcL LAB HEMETOLOGY METHOD 07/20/2024 7:07 AM [facility] Monocytes Absolute 1.16(H) 0.20 - 1.00 K/mcL LAB HEMETOLOGY METHOD 07/20/2024 7:07 AM [facility] Eosinophils Absolute 0.56(H) 0.00 - 0.50 K/mcL LAB HEMETOLOGY METHOD 07/20/2024 7:07 AM [facility] Basophils Absolute 0.04 0.00 - 0.20 K/[facility] LAB HEMETOLOGY METHOD 07/20/2024 7:07 AM [facility] Immature Granulocytes Absolute 0.27(H) 0.00 - 0.03 K/[facility] LAB HEMETOLOGY METHOD 07/20/2024 7:07 AM [facility] Blood Venous blood specimen / Unknown Venipuncture / Unknown 07/20/2024 5:46 AM EST 07/20/2024 6:38 AM EST [facility] LAB BLOOD ORDERABLES Final R esult [facility] [address] [place] [address], * (ABNORMAL) CBC - Every 3 Days (07/20/2024 5:46 AM EST) WBC 20.9(H) 4.8 - 10.8 K/[facility] LAB HEMETOLOGY METHOD 07/20/2024 7:07 AM [facility] RBC 3.00(L) 3.80 - 4.80 /[facility] LAB HEMETOLOGY METHOD 07/20/2024 7:07 AM [facility] Hemoglobin 7.3(L) 11.5 - 16.0 g/dL LAB HEMETOLOGY METHOD 07/20/2024 7:07 AM [facility] Hematocrit 23.6(L) 35.0 - 47.0 % LAB HEMETOLOGY METHOD 07/20/2024 7:07 AM [facility] MCV 77.9(L) 79.0 - 98.0 FL LAB HEMETOLOGY METHOD 07/20/2024 7:07 AM [facility] MCH 24.1(L) 27.0 - 32.0 pcg LAB HEMETOLOGY METHOD 07/20/2024 7:07 AM EST [facility] MCHC 30.9(L) 32.0 - 37.0 g/dL LAB HEMETOLOGY METHOD 07/20/2024 7:07 AM [facility] RDW 23.9(H) 11.0 - 15.0 % LAB HEMETOLOGY METHOD 07/20/2024 7:07 AM [facility] Platelets 217 130 - 400 K/mcL LAB HEMETOLOGY METHOD 07/20/2024 7:07 AM [facility] MPV 9.8 7.0 - 11.0 FL LAB HEMETOLOGY METHOD 07/20/2024 7:07 AM [facility] NRBC 0.0 <1.0 % LAB HEMETOLOGY METHOD 07/20/2024 7:07 AM [facility] NRBC Absolute 0.00 <0.10 K/mcL LAB HEMETOLOGY METHOD 07/20/2024 7:07 AM [facility] Blood Venous blood specimen / Unknown Venipuncture / Unknown 07/20/2024 5:46 AM EST 07/20/2024 6:38 AM EST us Kwesi Guido MD LAB BLOOD ORDERABLES F inal Result [facility] [address] [place] [address], * Heparin and low molecular weight anti Xa level (07/20/2024 5:46 AM EST) Heparin Anti-Xa 0.36 0.30 - 0.70 I Unit/mL LAB COAGULATION METHOD 07/20/2024 7:15 AM EST [facility] Blood Venous blood specimen / Unknown Venipuncture / Unknown 07/20/2024 5:46 AM EST 07/20/2024 6:40 AM EST [facility] - 07/20/2024 7:15 AM EST Therapeutic range listed is for Unfractionated Heparin. LMW Heparin therapeutic range: 0.50-1.20 IU/mL us Lencho Stuart MD LAB BLOOD ORDERABLES Final R esult [facility] [address] [place] [address], [place] [phone] * (ABNORMAL) Basic metabolic panel (07/20/2024 5:46 AM EST) Sodium 132(L) 133 - 145 mmol/L LAB CHEMISTRY METHOD 07/20/2024 8:03 AM [facility] Potassium 4.2 3.5 - 5.5 mmol/L LAB CHEMISTRY METHOD 07/20/2024 8:03 AM [facility] Chloride 95(L) 96 - 110 mmol/L LAB CHEMISTRY METHOD 07/20/2024 8:03 AM [facility] CO2 29 21 - 32 mmol/L LAB CHEMISTRY METHOD 07/20/2024 8:03 AM [facility] Anion Gap 8 3 - 11 LAB CHEMISTRY METHOD 07/20/2024 8:03 AM [facility] Glucose 113(H) 70 - 100 mg/dL LAB CHEMISTRY METHOD 07/20/2024 8:03 AM [facility] BUN 41(H) 5 - 25 mg/dL LAB CHEMISTRY METHOD 07/20/2024 8:03 AM [facility] Creatinine 3.68(H) 0.50 - 1.10 mg/dL LAB CHEMISTRY METHOD 07/20/2024 8:03 AM [facility] eGFR 12(L) >=60 mL/min/1. 73m2 LAB CHEMISTRY METHOD 07/20/2024 8:03 AM [facility] Comment:Calculation based on the??Chronic Kidney Disease Epidemiology Collaboration (CKD-EPI) equation refit??without adjustment for race. BUN/Creatinine Ratio 11.1 LAB CHEMISTRY METHOD 07/20/2024 8:03 AM EST [facility] Calcium 7.3(L) 8.5 - 10.5 mg/dL LAB CHEMISTRY METHOD 07/20/2024 8:03 AM EST [facility] Blood Venous blood specimen / Unknown Venipuncture / Unknown 07/20/2024 5:46 AM EST 07/20/2024 6:38 AM EST us Lencho Stuart MD LAB BLOOD ORDERABLES Final R esult Performing Organization Address City/[facility]/ZIP Co de Phone Number [facility] [address] [place] [address], [place] [phone] * (ABNORMAL) POCT Glucose, blood (07/19/2024 8:18 PM EST) Glucose POCT 146(H) 70 - 100 mg/dL 07/19/2024 8:18 PM EST [facility] Blood Capillary blood specimen / Unknown 07/19/2024 8:18 PM EST 07/19/2024 8:19 PM EST us Lencho Stuart MD LAB POINT OF CARE TE ST DOCKED DEVICE UNSOLICITED RESULTS Final Result [facility] [address] [place] [address], [place] [phone] * (ABNORMAL) POCT Glucose, blood (07/19/2024 7:29 PM EST) Glucose POCT 152(H) 70 - 100 mg/dL 07/19/2024 7:30 PM EST [facility] Blood Capillary blood specimen / Unknown 07/19/2024 7:29 PM EST 07/19/2024 7:31 PM EST us Lencho Stuart MD LAB POINT OF CARE TE ST DOCKED DEVICE UNSOLICITED RESULTS Final Result Performing Organization Address [facility]/ZIP Co de Phone Number [facility] [address] [place] [address], [place] [phone] * (ABNORMAL) POCT Glucose, blood (07/19/2024 4:01 PM EST) [facility] [address] Glucose POCT 139(H) 70 - 100 mg/dL 07/19/2024 4:02 PM EST [facility] Blood Capillary blood specimen / Unknown 07/19/2024 4:01 PM EST 07/19/2024 4:03 PM EST us Lencho Stuart MD LAB POINT OF CARE TE ST DOCKED DEVICE UNSOLICITED RESULTS Final Result Performing Organization Address [facility] de Phone Number [facility] [address] [place] [address], [place] [phone] * (ABNORMAL) Hemoglobin and hematocrit (07/19/2024 2:31 PM EST) [facility] [address] Hemoglobin 7.6(L) 11.5 - 16.0 g/dL LAB HEMETOLOGY METHOD 07/19/2024 3:11 PM EST [facility] Hematocrit 23.8(L) 35.0 - 47.0 % LAB HEMETOLOGY METHOD 07/19/2024 3:11 PM EST [facility] Blood Venous blood specimen / Unknown Venipuncture / Unknown 07/19/2024 2:31 PM EST 07/19/2024 3:05 PM EST us Lencho Stuart MD LAB BLOOD ORDERABLES Final R esult Performing Organization Address [facility]/ZIP Co de Phone Number [facility] [address] [place] [address], [place] [phone] * Creatinine, urine, random (07/19/2024 12:01 PM EST) Creatinine, Urine 41.0 mg/dL LAB CHEMISTRY METHOD 07/19/2024 1:17 PM EST [facility] Urine Urine specimen obtained by clean catch procedure / Unknown Non-blood Collection / Unknown 07/19/2024 12:01 PM EST 07/19/2024 12:30 PM EST us Miguel Quiles MD LAB URINE ORDERABLES Final Res ult [facility] [address] [place] [address], [place] [phone] * (ABNORMAL) Microalbumin creatinine urine ratio (07/19/2024 12:01 PM EST) Creatinine, Urine 41.0 mg/dL LAB CHEMISTRY METHOD 07/19/2024 1:46 PM EST [facility] Microalb, Ur 1,480.0(H ) 0.0 - 29.0 mg/L LAB CHEMISTRY METHOD 07/19/2024 1:46 PM [facility] Microalb/Crea t Ratio 3,610(H) <30 mg/g creat LAB CHEMISTRY METHOD 07/19/2024 1:46 PM EST [facility] Urine Urine specimen obtained by clean catch procedure / Unknown Non-blood Collection / Unknown 07/19/2024 12:01 PM EST 07/19/2024 12:30 PM EST us Miguel Quiles MD LAB URINE ORDERABLES Final Res ult [facility] [address] [place] [address], [place] [phone] * (ABNORMAL) POCT Glucose, blood (07/19/2024 11:32 AM EST) Glucose POCT 132(H) 70 - 100 mg/dL 07/19/2024 11:33 AM EST [facility] Blood Capillary blood specimen / Unknown 07/19/2024 11:32 AM EST 07/19/2024 11:34 AM EST us Lencho Stuart MD LAB POINT OF CARE TE ST DOCKED DEVICE UNSOLICITED RESULTS Final Result Performing Organization Address City/[facility]/ZIP Co de Phone Number [facility] [address] [place] [address], [place] [phone] * (ABNORMAL) POCT Glucose, blood (07/19/2024 9:07 AM EST) Glucose POCT 117(H) 70 - 100 mg/dL 07/19/2024 9:07 AM EST [facility] Blood Capillary blood specimen / Unknown 07/19/2024 9:07 AM EST 07/19/2024 9:09 AM EST Lencho Stuart MD LAB POINT OF CARE TE ST DOCKED DEVICE UNSOLICITED RESULTS Final Result Performing Organization Address City/[facility]/ZIP Co de Phone Number [facility] [address] [place] [address], [place] [phone] * (ABNORMAL) CBC auto differential (07/19/2024 7:55 AM EST) WBC 25.0(H) 4.8 - 10.8 K/mcL LAB HEMETOLOGY METHOD 07/19/2024 8:36 AM EST [facility] RBC 2.80(L) 3.80 - 4.80 M/mcL LAB HEMETOLOGY METHOD 07/19/2024 8:36 AM EST [facility] Hemoglobin 7.0(L) 11.5 - 16.0 g/dL LAB HEMETOLOGY METHOD 07/19/2024 8:36 AM [facility] Hematocrit 22.2(L) 35.0 - 47.0 % LAB HEMETOLOGY METHOD 07/19/2024 8:36 AM [facility] MCV 79.0 79.0 - 98.0 FL LAB HEMETOLOGY METHOD 07/19/2024 8:36 AM [facility] MCH 24.9(L) 27.0 - 32.0 pcg LAB HEMETOLOGY METHOD 07/19/2024 8:36 AM [facility] MCHC 31.5(L) 32.0 - 37.0 g/dL LAB HEMETOLOGY METHOD 07/19/2024 8:36 AM [facility] RDW 23.9(H) 11.0 - 15.0 % LAB HEMETOLOGY METHOD 07/19/2024 8:36 AM [facility] Platelets 218 130 - 400 K/mcL LAB HEMETOLOGY METHOD 07/19/2024 8:36 AM [facility] MPV 10.6 7.0 - 11.0 FL LAB HEMETOLOGY METHOD 07/19/2024 8:36 AM [facility] NRBC 0.0 <1.0 % LAB HEMETOLOGY METHOD 07/19/2024 8:36 AM [facility] NRBC Absolute 0.00 <0.10 K/mcL LAB HEMETOLOGY METHOD 07/19/2024 8:36 AM [facility] Neutrophils Relative 87.6 % LAB HEMETOLOGY METHOD 07/19/2024 8:36 AM [facility] Comment:This is an appended report. These results have been appended to a previously preliminary verified report. Lymphocytes Relative 3.0 % LAB HEMETOLOGY METHOD 07/19/2024 8:36 AM [facility] Comment:This is an appended report. These results have been appended to a previously preliminary verified report. Monocytes Relative 4.6 % LAB HEMETOLOGY METHOD 07/19/2024 8:36 AM [facility] Comment:This is an appended report. These results have been appended to a previously preliminary verified report. Eosinophils Relative 3.0 % LAB HEMETOLOGY METHOD 07/19/2024 8:36 AM [facility] Comment:This is an appended report. These results have been appended to a previously preliminary verified report. Basophils Relative 0.2 % LAB HEMETOLOGY METHOD 07/19/2024 8:36 AM [facility] Comment:This is an appended report. These results have been appended to a previously preliminary verified report. Immature Granulocytes Relative 1.6 % LAB HEMETOLOGY METHOD 07/19/2024 8:36 AM [facility] Comment:This is an appended report. These results have been appended to a previously preliminary verified report. Neutrophils Absolute 21.89(H) 1.50 - 7.00 K/mcL LAB HEMETOLOGY METHOD 07/19/2024 8:36 AM [facility] Comment:This is an appended report. These results have been appended to a previously preliminary verified report. Lymphocytes Absolute 0.76(L) 1.00 - 5.00 K/mcL LAB HEMETOLOGY METHOD 07/19/2024 8:36 AM [facility] Comment:This is an appended report. These results have been appended to a previously preliminary verified report. Monocytes Absolute 1.14(H) 0.20 - 1.00 K/mcL LAB HEMETOLOGY METHOD 07/19/2024 8:36 AM [facility] Comment:This is an appended report. These results have been appended to a previously preliminary verified report. Eosinophils Absolute 0.76(H) 0.00 - 0.50 K/mcL LAB HEMETOLOGY METHOD 07/19/2024 8:36 AM [facility] Comment:This is an appended report. These results have been appended to a previously preliminary verified report. Basophils Absolute 0.05 0.00 - 0.20 K/mcL LAB HEMETOLOGY METHOD 07/19/2024 8:36 AM EST [facility] Comment:This is an appended report. These results have been appended to a previously preliminary verified report. Immature Granulocytes Absolute 0.40(H) 0.00 - 0.03 K/mcL LAB HEMETOLOGY METHOD 07/19/2024 8:36 AM EST [facility] Comment:This is an appended report. These results have been appended to a previously preliminary verified report. Blood Venous blood specimen / Unknown Venipuncture / Unknown 07/19/2024 7:55 AM EST 07/19/2024 7:55 AM EST us Estate Sade GUERRERO LAB BLOOD ORDERABLES Final R esult [facility]) [facility] [address] [place] [address], * (ABNORMAL) Parathyroid hormone related protein (07/19/2024 [...] analytical performance characteristics have been determined by [facility]. It has not been cleared or approved by FDA. This assay has been validated pursuant to the CLIA regulations and is used for clinical purposes. Test Performed at: [facility] [address] ??[id number] ? I Bethany GUERRERO, PhD, NINA Blood Venous blood specimen / Unknown Venipuncture / Unknown 07/19/2024 7:55 AM EST 07/19/2024 7:55 AM EST us Jesus Manuel HEDRICK LAB BLOOD ORDERABLES Final [place]u [place] [address] [place] [address] * (ABNORMAL) Anti-neutrophilic cytoplasmic antibody (07/19/2024 6:52 AM EST) Myeloperoxidase Ab Negative Negative LAB CHEMISTRY METHOD 07/20/2024 12:10 PM EST [facility] Myeloperoxidase Ab, Quant 1 <=20 units LAB CHEMISTRY METHOD 07/20/2024 12:10 PM EST [facility] Proteinase-3 Ab Positive(A ) Negative LAB CHEMISTRY METHOD 07/20/2024 12:10 PM EST [facility] Proteinase-3 Ab Quant 165(H) <=20 units LAB CHEMISTRY METHOD 07/20/2024 12:10 PM EST [facility] Blood Venous blood specimen / Unknown Venipuncture / Unknown 07/19/2024 6:52 AM EST 07/19/2024 7:21 AM EST Miguel Quiles MD LAB BLOOD ORDERABLES Final Res ult Performing Organization Address City/[facility]/ZIP Co de Phone Number [facility] [address] [place] [address], * Anti-Xa - Every 6 Hours (07/19/2024 6:52 AM EST) Heparin Anti-Xa 0.37 0.30 - 0.70 I Unit/mL LAB COAGULATION METHOD 07/19/2024 7:38 AM EST [facility] Blood Venous blood specimen / Unknown Venipuncture / Unknown 07/19/2024 6:52 AM EST 07/19/2024 7:21 AM EST Narrative [facility] - 07/19/2024 7:38 AM EST Therapeutic range listed is for Unfractionated Heparin. LMW Heparin therapeutic range: 0.50-1.20 IU/mL Lencho Stuart MD LAB BLOOD ORDERABLES Final R esult [facility] [address] [place] [address], * (ABNORMAL) Basic metabolic panel (07/19/2024 6:52 AM EST) Sodium 128(L) 133 - 145 mmol/L LAB CHEMISTRY METHOD 07/19/2024 8:56 AM EST [facility] Potassium 4.9 3.5 - 5.5 mmol/L LAB CHEMISTRY METHOD 07/19/2024 8:56 AM [facility] Chloride 93(L) 96 - 110 mmol/L LAB CHEMISTRY METHOD 07/19/2024 8:56 AM [facility] CO2 28 21 - 32 mmol/L LAB CHEMISTRY METHOD 07/19/2024 8:56 AM [facility] Anion Gap 7 3 - 11 LAB CHEMISTRY METHOD 07/19/2024 8:56 AM [facility] Glucose 170(H) 70 - 100 mg/dL LAB CHEMISTRY METHOD 07/19/2024 8:56 AM [facility] BUN 83(H) 5 - 25 mg/dL LAB CHEMISTRY METHOD 07/19/2024 8:56 AM [facility] Creatinine 5.96(H) 0.50 - 1.10 mg/dL LAB CHEMISTRY METHOD 07/19/2024 8:56 AM [facility] eGFR 7(L) >=60 mL/min/1. 73m2 LAB CHEMISTRY METHOD 07/19/2024 8:56 AM [facility] Comment:Calculation based on the??Chronic Kidney Disease Epidemiology Collaboration (CKD-EPI) equation refit??without adjustment for race. BUN/Creatinine Ratio 13.9 LAB CHEMISTRY METHOD 07/19/2024 8:56 AM EST [facility] Calcium 7.7(L) 8.5 - 10.5 mg/dL LAB CHEMISTRY METHOD 07/19/2024 8:56 AM [facility] Blood Venous blood specimen / Unknown Venipuncture / Unknown 07/19/2024 6:52 AM EST 07/19/2024 7:21 AM EST Lencho Stuart MD LAB BLOOD ORDERABLES Final R esult Performing Organization Address City/[facility]/ZIP Co de Phone Number [facility] [address] [place] [address], [place] [phone] * (ABNORMAL) POCT Glucose, blood (07/18/2024 8:27 PM EST) Glucose POCT 193(H) 70 - 100 mg/dL 07/18/2024 8:27 PM [facility] Blood Capillary blood specimen / Unknown 07/18/2024 8:27 PM EST 07/18/2024 8:28 PM EST us Lencho Stuart MD LAB POINT OF CARE TE ST DOCKED DEVICE UNSOLICITED RESULTS Final Result Performing Organization Address [facility]/ZIP Co de Phone Number [facility] [address] [place] [address], [place] [phone] * Anti-Xa - Every 6 Hours (07/18/2024 6:07 PM EST) Heparin Anti-Xa 0.42 0.30 - 0.70 I Unit/mL LAB COAGULATION METHOD 07/18/2024 7:21 PM EST [facility] Blood Venous blood specimen / Unknown Venipuncture / Unknown 07/18/2024 6:07 PM EST 07/18/2024 7:00 PM EST Narrative [facility] - 07/18/2024 7:21 PM EST Therapeutic range listed is for Unfractionated Heparin. LMW Heparin therapeutic range: 0.50-1.20 IU/mL us Kwesi Guido MD LAB BLOOD ORDERABLES F inal Result Performing Organization Address [facility]/ZIP Co de Phone Number [facility] [address] [place] [address], [place] [phone] * (ABNORMAL) POCT Glucose, blood (07/18/2024 4:00 PM EST) Glucose POCT 210(H) 70 - 100 mg/dL 07/18/2024 4:01 PM EST [facility] Blood Capillary blood specimen / Unknown 07/18/2024 4:00 PM EST 07/18/2024 4:02 PM EST us Lencho Stuart MD LAB POINT OF CARE TE ST DOCKED DEVICE UNSOLICITED RESULTS Final Result Performing Organization Address [facility] de Phone Number [facility] [address] [place] [address], [place] [phone] * Anti-Xa - Every 6 Hours (07/18/2024 12:43 PM EST) Heparin Anti-Xa 0.39 0.30 - 0.70 I Unit/mL LAB COAGULATION METHOD 07/18/2024 1:15 PM EST [facility] Blood Venous blood specimen / Unknown Venipuncture / Unknown 07/18/2024 12:43 PM EST 07/18/2024 12:49 PM EST Narrative [facility] - 07/18/2024 1:15 PM EST Therapeutic range listed is for Unfractionated Heparin. LMW Heparin therapeutic range: 0.50-1.20 IU/mL us Kwesi Guido MD LAB BLOOD ORDERABLES F inal Result [facility] [address] [place] [address], [place] [phone] * (ABNORMAL) POCT Glucose, blood (07/18/2024 11:17 AM EST) Glucose POCT 244(H) 70 - 100 mg/dL 07/18/2024 11:19 AM EST [facility] Blood Capillary blood specimen / Unknown 07/18/2024 11:17 AM EST 07/18/2024 11:21 AM EST us Lencho Stuart MD LAB POINT OF CARE TE ST DOCKED DEVICE UNSOLICITED RESULTS Final Result Performing Organization Address [facility]/ZIP Co de Phone Number [facility] [address] [place] [address], [place] [phone] * (ABNORMAL) POCT Glucose, blood (07/18/2024 7:54 AM EST) Glucose POCT 219(H) 70 - 100 mg/dL 07/18/2024 7:54 AM EST [facility] Blood Capillary blood specimen / Unknown 07/18/2024 7:54 AM EST 07/18/2024 7:56 AM EST us Lencho Stuart MD LAB POINT OF CARE TE ST DOCKED DEVICE UNSOLICITED RESULTS Final Result Performing Organization Address [facility]/ZIP Co de Phone Number [facility] [address] [place] [address], [place] [phone] * Robertson urine culture tube (07/18/2024 6:10 AM EST) Extra Tube Hold for add-ons. 07/18/2024 8:01 AM EST [facility] Comment:Auto resulted. Urine Urine specimen obtained by clean catch procedure / Unknown 07/18/2024 6:10 AM EST 07/18/2024 6:37 AM EST Lencho Stuart MD LAB URINE ORDERABLES Final R esult Performing Organization Address [facility] Co de Phone Number [facility] [address] [place] [address], [place] [phone] * (ABNORMAL) Urinalysis microscopic only (07/18/2024 6:09 AM EST) RBC, Urine 10(H) 0 - 4 /HPF 07/18/2024 7:53 AM [facility] WBC, Urine >100(H) 0 - 4 /HPF 07/18/2024 7:53 AM [facility] Squamous Epithelial, Urine 10 0 - 60 /LPF 07/18/2024 7:53 AM [facility] Non-Squamous Epithelial, Urine 2-5 Transitional epithelial cells. /LPF 07/18/2024 7:53 AM [facility] Bacteria, Urine Many(A) Negative /HPF 07/18/2024 7:53 AM [facility] Other Casts, Urine Rare Coarse Granular casts. /LPF 07/18/2024 7:53 AM [facility] Urine Indwelling urinary catheter / Unknown Non-blood Collection / Unknown 07/18/2024 6:09 AM EST 07/18/2024 6:36 AM EST us Kwesi Guido MD LAB URINE ORDERABLES F inal Result Performing Organization Address City/[facility]/ZIP Co de Phone Number [facility] [address] [place] [address], * Anti-Xa - Every 6 Hours (07/18/2024 6:07 AM EST) Heparin Anti-Xa 0.34 0.30 - 0.70 I Unit/mL LAB COAGULATION METHOD 07/18/2024 7:02 AM [facility] Blood Venous blood specimen / Unknown 07/18/2024 6:07 AM EST 07/18/2024 6:34 AM EST [facility] - 07/18/2024 7:02 AM EST Therapeutic range listed is for Unfractionated Heparin. LMW Heparin therapeutic range: 0.50-1.20 IU/mL us Kwesi Guido MD LAB BLOOD ORDERABLES F inal Result [facility] [address] [place] [address], * (ABNORMAL) CBC auto differential (07/18/2024 6:07 AM EST) WBC 25.5(H) 4.8 - 10.8 K/mcL LAB HEMETOLOGY METHOD 07/18/2024 7:23 AM [facility] RBC 3.20(L) 3.80 - 4.80 M/mcL LAB HEMETOLOGY METHOD 07/18/2024 7:23 AM [facility] Hemoglobin 7.8(L) 11.5 - 16.0 g/dL LAB HEMETOLOGY METHOD 07/18/2024 7:23 AM [facility] Hematocrit 24.9(L) 35.0 - 47.0 % LAB HEMETOLOGY METHOD 07/18/2024 7:23 AM [facility] MCV 77.6(L) 79.0 - 98.0 FL LAB HEMETOLOGY METHOD 07/18/2024 7:23 AM [facility] MCH 24.3(L) 27.0 - 32.0 pcg LAB HEMETOLOGY METHOD 07/18/2024 7:23 AM [facility] MCHC 31.3(L) 32.0 - 37.0 g/dL LAB HEMETOLOGY METHOD 07/18/2024 7:23 AM [facility] RDW 24.1(H) 11.0 - 15.0 % LAB HEMETOLOGY METHOD 07/18/2024 7:23 AM [facility] Platelets 242 130 - 400 K/mcL LAB HEMETOLOGY METHOD 07/18/2024 7:23 AM [facility] MPV 9.6 7.0 - 11.0 FL LAB HEMETOLOGY METHOD 07/18/2024 7:23 AM [facility] NRBC 0.0 <1.0 % LAB HEMETOLOGY METHOD 07/18/2024 7:23 AM [facility] NRBC Absolute 0.00 <0.10 K/mcL LAB HEMETOLOGY METHOD 07/18/2024 7:23 AM [facility] Neutrophils Relative 89.3 % LAB HEMETOLOGY METHOD 07/18/2024 7:23 AM [facility] Comment:This is an appended report. These results have been appended to a previously preliminary verified report. Lymphocytes Relative 2.8 % LAB HEMETOLOGY METHOD 07/18/2024 7:23 AM [facility] Comment:This is an appended report. These results have been appended to a previously preliminary verified report. Monocytes Relative 4.2 % LAB HEMETOLOGY METHOD 07/18/2024 7:23 AM [facility] Comment:This is an appended report. These results have been appended to a previously preliminary verified report. Eosinophils Relative 1.9 % LAB HEMETOLOGY METHOD 07/18/2024 7:23 AM [facility] Comment:This is an appended report. These results have been appended to a previously preliminary verified report. Basophils Relative 0.2 % LAB HEMETOLOGY METHOD 07/18/2024 7:23 AM [facility] Comment:This is an appended report. These results have been appended to a previously preliminary verified report. Immature Granulocytes Relative 1.6 % LAB HEMETOLOGY METHOD 07/18/2024 7:23 AM [facility] Comment:This is an appended report. These results have been appended to a previously preliminary verified report. Neutrophils Absolute 22.74(H) 1.50 - 7.00 K/mcL LAB HEMETOLOGY METHOD 07/18/2024 7:23 AM [facility] Comment:This is an appended report. These results have been appended to a previously preliminary verified report. Lymphocytes Absolute 0.72(L) 1.00 - 5.00 K/mcL LAB HEMETOLOGY METHOD 07/18/2024 7:23 AM [facility] Comment:This is an appended report. These results have been appended to a previously preliminary verified report. Monocytes Absolute 1.06(H) 0.20 - 1.00 K/mcL LAB HEMETOLOGY METHOD 07/18/2024 7:23 AM [facility] Comment:This is an appended report. These results have been appended to a previously preliminary verified report. Eosinophils Absolute 0.49 0.00 - 0.50 K/mcL LAB HEMETOLOGY METHOD 07/18/2024 7:23 AM [facility] Comment:This is an appended report. These results have been appended to a previously preliminary verified report. Basophils Absolute 0.04 0.00 - 0.20 K/mcL LAB HEMETOLOGY METHOD 07/18/2024 7:23 AM [facility] Comment:This is an appended report. These results have been appended to a previously preliminary verified report. Immature Granulocytes Absolute 0.41(H) 0.00 - 0.03 K/mcL LAB HEMETOLOGY METHOD 07/18/2024 7:23 AM [facility] Comment:This is an appended report. These results have been appended to a previously preliminary verified report. Blood Venous blood specimen / Unknown Venipuncture / Unknown 07/18/2024 6:07 AM EST 07/18/2024 7:16 AM EST us Kwesi Guido MD LAB BLOOD ORDERABLES F inal Result Performing Organization Address City/[facility]/ZIP Co de Phone Number [facility] [address] [place] [address], [place] [phone] * (ABNORMAL) Calcium, ionized (07/18/2024 6:07 AM EST) [facility] [address] Calcium Ionized 4.28(L) 4.50 - 5.30 mg/dL 07/18/2024 6:46 AM EST [facility] Blood Venous blood specimen / Unknown 07/18/2024 6:07 AM EST 07/18/2024 6:33 AM EST us Kwesi Guido MD LAB BLOOD ORDERABLES F inal Result Performing Organization Address City/[facility]/ZIP Co de Phone Number [facility] [address] [place] [address], [place] [phone] * (ABNORMAL) Basic metabolic panel (07/18/2024 6:07 AM EST) [facility] [address] Sodium 132(L) 133 - 145 mmol/L LAB CHEMISTRY METHOD 07/18/2024 7:48 AM [facility] Potassium 4.4 3.5 - 5.5 mmol/L LAB CHEMISTRY METHOD 07/18/2024 7:48 AM [facility] Chloride 95(L) 96 - 110 mmol/L LAB CHEMISTRY METHOD 07/18/2024 7:48 AM [facility] CO2 27 21 - 32 mmol/L LAB CHEMISTRY METHOD 07/18/2024 7:48 AM [facility] Anion Gap 10 3 - 11 LAB CHEMISTRY METHOD 07/18/2024 7:48 AM [facility] Glucose 225(H) 70 - 100 mg/dL LAB CHEMISTRY METHOD 07/18/2024 7:48 AM EST [facility] BUN 67(H) 5 - 25 mg/dL LAB CHEMISTRY METHOD 07/18/2024 7:48 AM [facility] Creatinine 4.92(H) 0.50 - 1.10 mg/dL LAB CHEMISTRY METHOD 07/18/2024 7:48 AM [facility] eGFR 8(L) >=60 mL/min/1. 73m2 LAB CHEMISTRY METHOD 07/18/2024 7:48 AM [facility] Comment:Calculation based on the??Chronic Kidney Disease Epidemiology Collaboration (CKD-EPI) equation refit??without adjustment for race. BUN/Creatinine Ratio 13.6 LAB CHEMISTRY METHOD 07/18/2024 7:48 AM [facility] Calcium 7.5(L) 8.5 - 10.5 mg/dL LAB CHEMISTRY METHOD 07/18/2024 7:48 AM [facility] Blood Venous blood specimen / Unknown 07/18/2024 6:07 AM EST 07/18/2024 6:34 AM EST Kwesi Guido MD LAB BLOOD ORDERABLES F inal Result [facility] [address] [place] [address], * (ABNORMAL) Anti-Xa - Every 6 Hours (07/18/2024 12:19 AM EST) Heparin Anti-Xa 0.19(L) 0.30 - 0.70 I Unit/mL LAB COAGULATION METHOD 07/18/2024 12:48 AM [facility] Blood Venous blood specimen / Unknown Venipuncture / Unknown 07/18/2024 12:19 AM EST 07/18/2024 12:38 AM EST Narrative [facility] - 07/18/2024 12:48 AM EST Therapeutic range listed is for Unfractionated Heparin. LMW Heparin therapeutic range: 0.50-1.20 IU/mL us Kwesi Guido MD LAB BLOOD ORDERABLES F inal Result Performing Organization Address City/[facility]/ZIP Co de Phone Number [facility] [address] [place] [address], [place] [phone] * (ABNORMAL) POCT Glucose, blood (07/17/2024 9:12 PM EST) Glucose POCT 240(H) 70 - 100 mg/dL 07/17/2024 9:13 PM EST [facility] Blood Capillary blood specimen / Unknown 07/17/2024 9:12 PM EST 07/17/2024 9:14 PM EST us Kwesi Guido MD LAB POINT OF C ARE TEST DOCKED DEVICE UNSOLICITED RESULTS Final Result Performing Organization Address [facility]/ZIP Co de Phone Number [facility] [address] [place] [address], [place] [phone] * Anti-Xa - Every 6 Hours (07/17/2024 6:37 PM EST) Heparin Anti-Xa 0.30 0.30 - 0.70 I Unit/mL LAB COAGULATION METHOD 07/17/2024 7:18 PM EST [facility] Blood Venous blood specimen / Unknown Venipuncture / Unknown 07/17/2024 6:37 PM EST 07/17/2024 7:06 PM EST Narrative [facility] - 07/17/2024 7:18 PM EST Therapeutic range listed is for Unfractionated Heparin. LMW Heparin therapeutic range: 0.50-1.20 IU/mL us Kwesi Guido MD LAB BLOOD ORDERABLES F inal Result Performing Organization Address [facility]/ZIP Co de Phone Number [facility] [address] [place] [address], [place] [phone] * (ABNORMAL) POCT Glucose, blood (07/17/2024 4:15 PM EST) Glucose POCT 238(H) 70 - 100 mg/dL 07/17/2024 4:16 PM EST [facility] Blood Capillary blood specimen / Unknown 07/17/2024 4:15 PM EST 07/17/2024 4:17 PM EST us Kwesi Guido MD LAB POINT OF C ARE TEST DOCKED DEVICE UNSOLICITED RESULTS Final Result Performing Organization Address [facility] Co de Phone Number [facility] [address] [place] [address], * Anti-Xa - Every 6 Hours (07/17/2024 12:29 PM EST) Heparin Anti-Xa 0.37 0.30 - 0.70 I Unit/mL LAB COAGULATION METHOD 07/17/2024 1:11 PM EST [facility] Blood Venous blood specimen / Unknown Venipuncture / Unknown 07/17/2024 12:29 PM EST 07/17/2024 12:35 PM EST Narrative [facility] - 07/17/2024 1:11 PM EST Therapeutic range listed is for Unfractionated Heparin. LMW Heparin therapeutic range: 0.50-1.20 IU/mL us Kwesi Guido MD LAB BLOOD ORDERABLES F inal Result Performing Organization Address [facility]/ZIP Co de Phone Number [facility] [address] [place] [address], [place] [phone] * (ABNORMAL) POCT Glucose, blood (07/17/2024 11:19 AM EST) Glucose POCT 307(H) 70 - 100 mg/dL 07/17/2024 11:25 AM EST [facility] Blood Capillary blood specimen / Unknown 07/17/2024 11:19 AM EST 07/17/2024 11:26 AM EST us Kwesi Guido MD LAB POINT [facility] ARE TEST DOCKED DEVICE UNSOLICITED RESULTS Final Result Performing Organization Address City/[facility]/ZIP Co de Phone Number [facility] [address] [place] [address], [place] [phone] * (ABNORMAL) POCT Glucose, blood (07/17/2024 7:57 AM EST) Glucose POCT 258(H) 70 - 100 mg/dL 07/17/2024 7:58 AM EST [facility] Blood Capillary blood specimen / Unknown 07/17/2024 7:57 AM EST 07/17/2024 7:59 AM EST us Kwesi Guido MD LAB POINT OF ARE TEST DOCKED DEVICE UNSOLICITED RESULTS Final Result Performing Organization Address [facility] Services/ZIP Co de Phone Number [facility] [address] [place] [address], [place] [phone] * (ABNORMAL) Anti-Xa - Every 6 Hours (07/17/2024 6:30 AM EST) Heparin Anti-Xa 0.20(L) 0.30 - 0.70 I Unit/mL LAB COAGULATION METHOD 07/17/2024 7:43 AM EST [facility] Blood Venous blood specimen / Unknown Venipuncture / Unknown 07/17/2024 6:30 AM EST 07/17/2024 7:06 AM EST Narrative [facility] - 07/17/2024 7:43 AM EST Therapeutic range listed is for Unfractionated Heparin. LMW Heparin therapeutic range: 0.50-1.20 IU/mL Kwesi Guido MD LAB BLOOD ORDERABLES F inal Result [facility] [address] [place] [address], * (ABNORMAL) CBC auto differential (07/17/2024 6:30 AM EST) [facility] [address] WBC 23.0(H) 4.8 - 10.8 K/mcL LAB HEMETOLOGY METHOD 07/17/2024 8:50 AM EST [facility] RBC 3.30(L) 3.80 - 4.80 M/mcL LAB HEMETOLOGY METHOD 07/17/2024 8:50 AM EST [facility] Hemoglobin 8.0(L) 11.5 - 16.0 g/dL LAB HEMETOLOGY METHOD 07/17/2024 8:50 AM [facility] Hematocrit 25.6(L) 35.0 - 47.0 % LAB HEMETOLOGY METHOD 07/17/2024 8:50 AM [facility] MCV 78.5(L) 79.0 - 98.0 FL LAB HEMETOLOGY METHOD 07/17/2024 8:50 AM [facility] MCH 24.5(L) 27.0 - 32.0 pcg LAB HEMETOLOGY METHOD 07/17/2024 8:50 AM [facility] MCHC 31.3(L) 32.0 - 37.0 g/dL LAB HEMETOLOGY METHOD 07/17/2024 8:50 AM [facility] RDW 23.9(H) 11.0 - 15.0 % LAB HEMETOLOGY METHOD 07/17/2024 8:50 AM [facility] Platelets 252 130 - 400 K/mcL LAB HEMETOLOGY METHOD 07/17/2024 8:50 AM [facility] MPV 9.9 7.0 - 11.0 FL LAB HEMETOLOGY METHOD 07/17/2024 8:50 AM [facility] NRBC 0.0 <1.0 % LAB HEMETOLOGY METHOD 07/17/2024 8:50 AM [facility] NRBC Absolute 0.00 <0.10 K/mcL LAB HEMETOLOGY METHOD 07/17/2024 8:50 AM [facility] Neutrophils Relative 90.9 % LAB HEMETOLOGY METHOD 07/17/2024 8:50 AM [facility] Lymphocytes Relative 2.6 % LAB HEMETOLOGY METHOD 07/17/2024 8:50 AM [facility] Monocytes Relative 4.8 % LAB HEMETOLOGY METHOD 07/17/2024 8:50 AM [facility] Eosinophils Relative 0.5 % LAB HEMETOLOGY METHOD 07/17/2024 8:50 AM [facility] Basophils Relative 0.1 % LAB HEMETOLOGY METHOD 07/17/2024 8:50 AM [facility] Immature Granulocytes Relative 1.1 % LAB HEMETOLOGY METHOD 07/17/2024 8:50 AM [facility] Neutrophils Absolute 20.92(H) 1.50 - 7.00 K/mcL LAB HEMETOLOGY METHOD 07/17/2024 8:50 AM [facility] Lymphocytes Absolute 0.60(L) 1.00 - 5.00 K/mcL LAB HEMETOLOGY METHOD 07/17/2024 8:50 AM [facility] Monocytes Absolute 1.11(H) 0.20 - 1.00 K/mcL LAB HEMETOLOGY METHOD 07/17/2024 8:50 AM [facility] Eosinophils Absolute 0.11 0.00 - 0.50 K/[facility] LAB HEMETOLOGY METHOD 07/17/2024 8:50 AM EST [facility] Basophils Absolute 0.03 0.00 - 0.20 K/[facility] LAB HEMETOLOGY METHOD 07/17/2024 8:50 AM [facility] Immature Granulocytes Absolute 0.26(H) 0.00 - 0.03 K/[facility] LAB HEMETOLOGY METHOD 07/17/2024 8:50 AM EST [facility] Blood Venous blood specimen / Unknown Venipuncture / Unknown 07/17/2024 6:30 AM EST 07/17/2024 7:06 AM EST us Kwesi Guido MD LAB BLOOD ORDERABLES F inal Result [facility] [address] [place] [address], * (ABNORMAL) CBC - Every 3 Days (07/17/2024 6:30 AM EST) WBC 23.0(H) 4.8 - 10.8 K/[facility] LAB HEMETOLOGY METHOD 07/17/2024 8:12 AM [facility] RBC 3.30(L) 3.80 - 4.80 /[facility] LAB HEMETOLOGY METHOD 07/17/2024 8:12 AM [facility] Hemoglobin 8.0(L) 11.5 - 16.0 g/dL LAB HEMETOLOGY METHOD 07/17/2024 8:12 AM [facility] Hematocrit 25.6(L) 35.0 - 47.0 % LAB HEMETOLOGY METHOD 07/17/2024 8:12 AM [facility] MCV 78.5(L) 79.0 - 98.0 FL LAB HEMETOLOGY METHOD 07/17/2024 8:12 AM [facility] MCH 24.5(L) 27.0 - 32.0 pcg LAB HEMETOLOGY METHOD 07/17/2024 8:12 AM EST [facility] MCHC 31.3(L) 32.0 - 37.0 g/dL LAB HEMETOLOGY METHOD 07/17/2024 8:12 AM EST [facility] RDW 23.9(H) 11.0 - 15.0 % LAB HEMETOLOGY METHOD 07/17/2024 8:12 AM EST [facility] Platelets 252 130 - 400 K/mcL LAB HEMETOLOGY METHOD 07/17/2024 8:12 AM EST [facility] MPV 9.9 7.0 - 11.0 FL LAB HEMETOLOGY METHOD 07/17/2024 8:12 AM EST [facility] NRBC 0.0 <1.0 % LAB HEMETOLOGY METHOD 07/17/2024 8:12 AM EST [facility] NRBC Absolute 0.00 <0.10 K/mcL LAB HEMETOLOGY METHOD 07/17/2024 8:12 AM EST [facility] Blood Venous blood specimen / Unknown Venipuncture / Unknown 07/17/2024 6:30 AM EST 07/17/2024 7:06 AM EST us Kwesi Guido MD LAB BLOOD ORDERABLES F inal Result [facility] [address] [place] [address], * Phosphorus (07/17/2024 6:30 AM EST) Phosphorus 2.9 2.5 - 4.5 mg/dL LAB CHEMISTRY METHOD 07/17/2024 8:09 AM EST [facility] Blood Venous blood specimen / Unknown Venipuncture / Unknown 07/17/2024 6:30 AM EST 07/17/2024 7:06 AM EST us Kwesi Guido MD LAB BLOOD ORDERABLES F inal Result Performing Organization Address [facility]/ZIP Co de Phone Number [facility] [address] [place] [address], [place] [phone] * Magnesium (07/17/2024 6:30 AM EST) [facility] [address] Magnesium 2.2 1.9 - 2.6 mg/dL LAB CHEMISTRY METHOD 07/17/2024 8:09 AM EST [facility] Blood Venous blood specimen / Unknown Venipuncture / Unknown 07/17/2024 6:30 AM EST 07/17/2024 7:06 AM EST us Kwesi Guido MD LAB BLOOD ORDERABLES F inal Result Performing Organization Address [facility]/ZIP Co de Phone Number [facility] [address] [place] [address], [place] [phone] * (ABNORMAL) Basic metabolic panel (07/17/2024 6:30 AM EST) [facility] [address] Sodium 133 133 - 145 mmol/L LAB CHEMISTRY METHOD 07/17/2024 8:09 AM [facility] Potassium 3.8 3.5 - 5.5 mmol/L LAB CHEMISTRY METHOD 07/17/2024 8:09 AM EST [facility] Chloride 96 96 - 110 mmol/L LAB CHEMISTRY METHOD 07/17/2024 8:09 AM [facility] CO2 26 21 - 32 mmol/L LAB CHEMISTRY METHOD 07/17/2024 8:09 AM [facility] Anion Gap 11 3 - 11 LAB CHEMISTRY METHOD 07/17/2024 8:09 AM [facility] Glucose 293(H) 70 - 100 mg/dL LAB CHEMISTRY METHOD 07/17/2024 8:09 AM EST [facility] BUN 53(H) 5 - 25 mg/dL LAB CHEMISTRY METHOD 07/17/2024 8:09 AM [facility] Creatinine 4.03(H) 0.50 - 1.10 mg/dL LAB CHEMISTRY METHOD 07/17/2024 8:09 AM EST [facility] eGFR 11(L) >=60 mL/min/1. 73m2 LAB CHEMISTRY METHOD 07/17/2024 8:09 AM EST [facility] Comment:Calculation based on the??Chronic Kidney Disease Epidemiology Collaboration (CKD-EPI) equation refit??without adjustment for race. BUN/Creatinine Ratio 13.2 LAB CHEMISTRY METHOD 07/17/2024 8:09 AM [facility] Calcium 7.7(L) 8.5 - 10.5 mg/dL LAB CHEMISTRY METHOD 07/17/2024 8:09 AM [facility] Blood Venous blood specimen / Unknown Venipuncture / Unknown 07/17/2024 6:30 AM EST 07/17/2024 7:06 AM EST Kwesi Guido MD LAB BLOOD ORDERABLES F inal Result [facility] [address] [place] [address], * (ABNORMAL) Anti-Xa - Every 6 Hours (07/17/2024 12:16 AM EST) Heparin Anti-Xa 0.14(L) 0.30 - 0.70 I Unit/mL LAB COAGULATION METHOD 07/17/2024 12:45 AM [facility] Blood Venous blood specimen / Unknown Venipuncture / Unknown 07/17/2024 12:16 AM EST 07/17/2024 12:35 AM EST Narrative [facility] - 07/17/2024 12:45 AM EST Therapeutic range listed is for Unfractionated Heparin. LMW Heparin therapeutic range: 0.50-1.20 IU/mL us Kwesi Guido MD LAB BLOOD ORDERABLES F inal Result Performing Organization Address [facility]/ZIP Co de Phone Number [facility] [address] [place] [address], [place] [phone] * (ABNORMAL) POCT Glucose, blood (07/16/2024 8:30 PM EST) Glucose POCT 263(H) 70 - 100 mg/dL 07/16/2024 8:31 PM EST [facility] Blood Capillary blood specimen / Unknown 07/16/2024 8:30 PM EST 07/16/2024 8:33 PM EST us Kwesi Guido MD LAB POINT OF C ARE TEST DOCKED DEVICE UNSOLICITED RESULTS Final Result Performing Organization Address [facility]/ZIP Co de Phone Number [facility] [address] [place] [address], [place] [phone] * (ABNORMAL) Anti-Xa - STAT (07/16/2024 5:50 PM EST) Heparin Anti-Xa <0.04(L) 0.30 - 0.70 I Unit/mL LAB COAGULATION METHOD 07/16/2024 6:18 PM EST [facility] Blood Venous blood specimen / Unknown Venipuncture / Unknown 07/16/2024 5:50 PM EST 07/16/2024 6:01 PM EST Narrative [facility] - 07/16/2024 6:18 PM EST Therapeutic range listed is for Unfractionated Heparin. LMW Heparin therapeutic range: 0.50-1.20 IU/mL us Kwesi Guido MD LAB BLOOD ORDERABLES F inal Result Performing Organization Address [facility]/ZIP Co de Phone Number [facility] [address] [place] [address], [place] [phone] * Activated Partial Thromboplastin Time - STAT (07/16/2024 5:50 PM EST) aPTT 31.3 24.1 - 39.3 sec LAB COAGULATION METHOD 07/16/2024 6:13 PM EST [facility] Blood Venous blood specimen / Unknown Venipuncture / Unknown 07/16/2024 5:50 PM EST 07/16/2024 6:01 PM EST us Kwesi Guido MD LAB BLOOD ORDERABLES F inal Result Performing Organization Address [facility] Co de Phone Number [facility] [address] [place] [address], [place] [phone] * (ABNORMAL) POCT Glucose, blood (07/16/2024 4:28 PM EST) Glucose POCT 170(H) 70 - 100 mg/dL 07/16/2024 4:31 PM EST [facility] Blood Capillary blood specimen / Unknown 07/16/2024 4:28 PM EST 07/16/2024 4:32 PM EST us Kwesi Guido MD LAB POINT OF C ARE TEST DOCKED DEVICE UNSOLICITED RESULTS Final Result Performing Organization Address [facility] Co de Phone Number [facility] [address] [place] [address], [place] [phone] * Vascular US duplex lower extremity venous [...] Signed Date: 07/16/2024 12:33 ET Workstation ID: [id number] Transcribed By: Self Edit Transcribed Date: 07/16/2024 [...] Signed Date: 07/16/2024 12:33 ET Workstation ID: [id number] Transcribed By: Self Edit Transcribed Date: 07/16/2024 12:28 ET us Kwesi Guido MD CV VASCULAR PROCEDURES Final Result * (ABNORMAL) POCT Glucose, blood (07/16/2024 10:42 AM EST) Pathologist [facility] Glucose POCT 105(H) 70 - 100 mg/dL 07/16/2024 10:44 AM [facility] Blood Capillary blood specimen / Unknown 07/16/2024 10:42 AM EST 07/16/2024 10:45 AM EST us Kwesi Guido MD LAB POINT OF C ARE TEST DOCKED DEVICE UNSOLICITED RESULTS Final Result [facility] [address] [place] [address], * (ABNORMAL) Basic metabolic panel (07/16/2024 6:45 AM EST) [facility] [address] Sodium 135 133 - 145 mmol/L LAB CHEMISTRY METHOD 07/16/2024 8:40 AM [facility] Potassium 3.8 3.5 - 5.5 mmol/L LAB CHEMISTRY METHOD 07/16/2024 8:40 AM [facility] Chloride 103 96 - 110 mmol/L LAB CHEMISTRY METHOD 07/16/2024 8:40 AM [facility] CO2 18(L) 21 - 32 mmol/L LAB CHEMISTRY METHOD 07/16/2024 8:40 AM [facility] Anion Gap 14(H) 3 - 11 LAB CHEMISTRY METHOD 07/16/2024 8:40 AM [facility] Glucose 100 70 - 100 mg/dL LAB CHEMISTRY METHOD 07/16/2024 8:40 AM [facility] BUN 77(H) 5 - 25 mg/dL LAB CHEMISTRY METHOD 07/16/2024 8:40 AM [facility] Creatinine 5.37(H) 0.50 - 1.10 mg/dL LAB CHEMISTRY METHOD 07/16/2024 8:40 AM EST [facility] eGFR 8(L) >=60 mL/min/1. 73m2 LAB CHEMISTRY METHOD 07/16/2024 8:40 AM [facility] Comment:Calculation based on the??Chronic Kidney Disease Epidemiology Collaboration (CKD-EPI) equation refit??without adjustment for race. BUN/Creatinine Ratio 14.3 LAB CHEMISTRY METHOD 07/16/2024 8:40 AM [facility] Calcium 8.0(L) 8.5 - 10.5 mg/dL LAB CHEMISTRY METHOD 07/16/2024 8:40 AM [facility] Blood Venous blood specimen / Unknown Venipuncture / Unknown 07/16/2024 6:45 AM EST 07/16/2024 6:58 AM EST us Kwesi Guido MD LAB BLOOD ORDERABLES F inal Result [facility] [address] [place] [address], [place] [phone] * (ABNORMAL) Complete blood count (07/16/2024 6:45 AM EST) WBC 27.6(H) 4.8 - 10.8 K/mcL LAB HEMETOLOGY METHOD 07/16/2024 7:16 AM [facility] RBC 3.40(L) 3.80 - 4.80 M/[facility] LAB HEMETOLOGY METHOD 07/16/2024 7:16 AM [facility] Hemoglobin 8.4(L) 11.5 - 16.0 g/dL LAB HEMETOLOGY METHOD 07/16/2024 7:16 AM [facility] Hematocrit 25.9(L) 35.0 - 47.0 % LAB HEMETOLOGY METHOD 07/16/2024 7:16 AM [facility] MCV 76.2(L) 79.0 - 98.0 FL LAB HEMETOLOGY METHOD 07/16/2024 7:16 AM EST [facility] MCH 24.7(L) 27.0 - 32.0 pcg LAB HEMETOLOGY METHOD 07/16/2024 7:16 AM EST [facility] MCHC 32.4 32.0 - 37.0 g/dL LAB HEMETOLOGY METHOD 07/16/2024 7:16 AM EST [facility] RDW 23.1(H) 11.0 - 15.0 % LAB HEMETOLOGY METHOD 07/16/2024 7:16 AM EST [facility] Platelets 258 130 - 400 K/mcL LAB HEMETOLOGY METHOD 07/16/2024 7:16 AM [facility] MPV 9.9 7.0 - 11.0 FL LAB HEMETOLOGY METHOD 07/16/2024 7:16 AM EST [facility] NRBC 0.0 <1.0 % LAB HEMETOLOGY METHOD 07/16/2024 7:16 AM EST [facility] NRBC Absolute 0.00 <0.10 K/mcL LAB HEMETOLOGY METHOD 07/16/2024 7:16 AM [facility] Blood Venous blood specimen / Unknown Venipuncture / Unknown 07/16/2024 6:45 AM EST 07/16/2024 6:58 AM EST us Kwesi Guido MD LAB BLOOD ORDERABLES F inal Result [facility] [address] [place] [address], * POCT Glucose, blood (07/15/2024 8:26 PM EST) [facility] Glucose POCT 93 70 - 100 mg/dL 07/15/2024 8:26 PM EST [facility] Blood Capillary blood specimen / Unknown 07/15/2024 8:26 PM EST 07/15/2024 8:27 PM EST us Kwesi Guido MD LAB POINT OF C ARE TEST DOCKED DEVICE UNSOLICITED RESULTS Final Result Performing Organization Address [facility]/ZIP Co de Phone Number [facility] [address] [place] [address], [place] [phone] * POCT Glucose, blood (07/15/2024 4:30 PM EST) [facility] Glucose POCT 92 70 - 100 mg/dL 07/15/2024 4:31 PM EST [facility] Blood Capillary blood specimen / Unknown 07/15/2024 4:30 PM EST 07/15/2024 4:33 PM EST us Kwesi Guido MD LAB POINT OF C ARE TEST DOCKED DEVICE UNSOLICITED RESULTS Final Result Performing Organization Address [facility] Co de Phone Number [facility] [address] [place] [address], [place] [phone] * IR Insert Tunneled CVC wo Port or Pump More 5yrs Left (07/15/2024 3:36 PM EST) Anatomical Region Laterality Modality Left Interventional R adiology 07/15/2024 3:45 PM EST Impressions 07/15/2024 3:47 PM EST Successful placement of a 14 Maldivian 23 cm dual-lumen cuffed tunneled dialysis catheter with the tip at the cavoatrial junction. This line may be used immediately. -------- FINAL REPORT -------- Dictated By: Fela Palomo Dictated Date: 07/15/2024 15:45 ET Assigned Physician: Fela Palomo Reviewed and Electronically Signed By: Fela Palomo Signed Date: 07/15/2024 15:47 ET Workstation ID: [id number] Transcribed By: Self Edit Transcribed Date: 07/15/2024 [...] The needle was exchanged for the 4 Maldivian transition sheath. A 0.035 wire was then advanced through ??the sheath and into the inferior vena cava under fluoroscopy. The sheath was then exchanged for a 7 Maldivian vascular dilator. Attention was then turned to the right upper chest and the appropriate area was anesthetized with 2% lidocaine. A small dermatotomy was performed and then a tunnel was created from the dermatotomy to the initial venous access site. The catheter was advanced through the tunnel. ??The initial venous access site was then serially dilated up to a 15 Maldivian peel-away sheath. The catheter was then advanced [...] The needle was exchanged for the 4 Maldivian transition sheath. A 0.035wire was then advanced through the sheath and into the inferior vena cavaunder fluoroscopy. The sheath was then exchanged for a 7 Maldivian vasculardilator. Attention was then turned to the right upper chest and the appropriatearea was anesthetized with 2% lidocaine. A small dermatotomy was performedand then a tunnel was created from the dermatotomy to the initial venousaccess site. The catheter was advanced through the tunnel. The initialvenous access site was then serially dilated up to a 15 Maldivian peel-awaysheath. The catheter was then advanced through [...] mGy IMPRESSION: Successful placement of a 14 Maldivian 23 cm dual-lumen cuffed tunneleddialysis catheter with the tip at the cavoatrial junction. This line maybe used immediately. -------- FINAL REPORT -------- Dictated By: Stacia, Parshant Dictated Date: 07/15/2024 15:45 ET Assigned Physician: Fela Palomo Reviewed and Electronically Signed By: Fela Palomo Signed Date: 07/15/2024 15:47 ET Workstation ID: [id number] Transcribed By: Self Edit Transcribed Date: 07/15/2024 15:45 ET us Chencho Wayne MD IMG IR PROCEDURES Final Result * POCT Glucose, blood (07/15/2024 10:57 AM EST) [facility] [address] Glucose POCT 98 70 - 100 mg/dL 07/15/2024 10:58 AM EST [facility] Blood Capillary blood specimen / Unknown 07/15/2024 10:57 AM EST 07/15/2024 10:59 AM EST Kwesi Guido MD LAB POINT OF C ARE TEST DOCKED DEVICE UNSOLICITED RESULTS Final Result [facility] [address] [place] [address], [place] [phone] * (ABNORMAL) Basic metabolic panel (07/15/2024 8:56 AM EST) [facility] [address] Sodium 132(L) 133 - 145 mmol/L LAB CHEMISTRY METHOD 07/15/2024 10:15 AM EST [facility] Potassium 3.8 3.5 - 5.5 mmol/L LAB CHEMISTRY METHOD 07/15/2024 10:15 AM EST [facility] Chloride 104 96 - 110 mmol/L LAB CHEMISTRY METHOD 07/15/2024 10:15 AM [facility] CO2 16(L) 21 - 32 mmol/L LAB CHEMISTRY METHOD 07/15/2024 10:15 AM [facility] Anion Gap 12(H) 3 - 11 LAB CHEMISTRY METHOD 07/15/2024 10:15 AM [facility] Glucose 80 70 - 100 mg/dL LAB CHEMISTRY METHOD 07/15/2024 10:15 AM EST [facility] BUN 97(H) 5 - 25 mg/dL LAB CHEMISTRY METHOD 07/15/2024 10:15 AM EST [facility] Creatinine 6.70(H) 0.50 - 1.10 mg/dL LAB CHEMISTRY METHOD 07/15/2024 10:15 AM EST [facility] eGFR 6(L) >=60 mL/min/1. 73m2 LAB CHEMISTRY METHOD 07/15/2024 10:15 AM EST [facility] Comment:Calculation based on the??Chronic Kidney Disease Epidemiology Collaboration (CKD-EPI) equation refit??without adjustment for race. BUN/Creatinine Ratio 14.5 LAB CHEMISTRY METHOD 07/15/2024 10:15 AM EST [facility] Calcium 8.4(L) 8.5 - 10.5 mg/dL LAB CHEMISTRY METHOD 07/15/2024 10:15 AM EST [facility] Blood Venous blood specimen / Unknown Venipuncture / Unknown 07/15/2024 8:56 AM EST 07/15/2024 9:43 AM EST Kwesi Guido MD LAB BLOOD ORDERABLES F inal Result [facility] [address] [place] [address], * Hepatitis B surface antigen with reflex to confirmation (07/15/2024 8:56 AM EST) Hepatitis B Surface Ag Negative Negative LAB CHEMISTRY METHOD 07/15/2024 10:36 AM EST [facility] Blood Venous blood specimen / Unknown Venipuncture / Unknown 07/15/2024 8:56 AM EST 07/15/2024 9:43 AM EST Narrative [facility] - 07/15/2024 10:36 AM EST Over the counter supplements containing high doses of biotin may interfere with this assay. ??If interference is suspected, patients shoud be retested after refraining from biotin supplements for 72 hours. us Kwesi Guido MD LAB BLOOD ORDERABLES F inal Result Performing Organization Address [facility] Co de Phone Number [facility] [address] [place] [address], [place] [phone] * Hepatitis B surface antibody quantitative (07/15/2024 8:56 AM EST) Hepatitis B Surface Ab Negative Negative LAB CHEMISTRY METHOD 07/15/2024 10:25 AM EST [facility] Hepatitis B Surface Ab Quantitative <3.1 mIU/mL LAB CHEMISTRY METHOD 07/15/2024 10:25 AM EST [facility] Blood Venous blood specimen / Unknown Venipuncture / Unknown 07/15/2024 8:56 AM EST 07/15/2024 9:43 AM EST Narrative [facility] - 07/15/2024 10:25 AM EST >=10 mIU/mL is considered to be consistent with immunity. us Kwesi Guido MD LAB BLOOD ORDERABLES F inal Result Performing Organization Address [facility] de Phone Number [facility] [address] [place] [address], [place] [phone] * (ABNORMAL) Renal function panel (07/15/2024 8:56 AM EST) Sodium 132(L) 133 - 145 mmol/L LAB CHEMISTRY METHOD 07/15/2024 10:26 AM EST [facility] Potassium 3.8 3.5 - 5.5 mmol/L LAB CHEMISTRY METHOD 07/15/2024 10:26 AM EST [facility] Chloride 104 96 - 110 mmol/L LAB CHEMISTRY METHOD 07/15/2024 10:26 AM EST [facility] CO2 16(L) 21 - 32 mmol/L LAB CHEMISTRY METHOD 07/15/2024 10:26 AM [facility] Anion Gap 12(H) 3 - 11 LAB CHEMISTRY METHOD 07/15/2024 10:26 AM [facility] Glucose 80 70 - 100 mg/dL LAB CHEMISTRY METHOD 07/15/2024 10:26 AM [facility] BUN 97(H) 5 - 25 mg/dL LAB CHEMISTRY METHOD 07/15/2024 10:26 AM [facility] Creatinine 6.70(H) 0.50 - 1.10 mg/dL LAB CHEMISTRY METHOD 07/15/2024 10:26 AM [facility] eGFR 6(L) >=60 mL/min/1. 73m2 LAB CHEMISTRY METHOD 07/15/2024 10:26 AM [facility] Comment:Calculation based on the??Chronic Kidney Disease Epidemiology Collaboration (CKD-EPI) equation refit??without adjustment for race. BUN/Creatinine Ratio 14.5 LAB CHEMISTRY METHOD 07/15/2024 10:26 AM [facility] Albumin 3.3 3.2 - 5.0 g/dL LAB CHEMISTRY METHOD 07/15/2024 10:26 AM [facility] Comment:Results verified by repeat testing Calcium 8.4(L) 8.5 - 10.5 mg/dL LAB CHEMISTRY METHOD 07/15/2024 10:26 AM [facility] Phosphorus 4.2 2.5 - 4.5 mg/dL LAB CHEMISTRY METHOD 07/15/2024 10:26 AM [facility] Blood Venous blood specimen / Unknown Venipuncture / Unknown 07/15/2024 8:56 AM EST 07/15/2024 9:43 AM EST us Chencho Wayne MD LAB BLOOD ORDERABLES Final Resu lt [facility] [address] [place] [address], [place] [phone] * POCT Glucose, blood (07/15/2024 8:03 AM EST) [facility] [address] Glucose POCT 96 70 - 100 mg/dL 07/15/2024 8:05 AM EST [facility] Blood Capillary blood specimen / Unknown 07/15/2024 8:03 AM EST 07/15/2024 8:06 AM EST Kwesi Guido MD LAB POINT OF C ARE TEST DOCKED DEVICE UNSOLICITED RESULTS Final Result [facility] [address] [place] [address], [place] [phone] * (ABNORMAL) RBC morphology review (07/15/2024 6:56 AM EST) [facility] [address] Rbc Morphology Present( A) Consistent with indices, Normal for LAB HEMETOLOGY METHOD 07/15/2024 8:54 AM EST [facility] Platelet Morphology - WAM See Note(A) Normal LAB HEMETOLOGY METHOD 07/15/2024 8:54 AM [facility] Comment:PLT: Normal Polychromasia Present Present( A) (none) LAB HEMETOLOGY METHOD 07/15/2024 8:54 AM [facility] [place] Bodies Present Present( A) (none) LAB HEMETOLOGY METHOD 07/15/2024 8:54 AM [facility] Schistocytes Present < 5%(A) (none) LAB HEMETOLOGY METHOD 07/15/2024 8:54 AM [facility] Blood Venous blood specimen / Unknown Venipuncture / Unknown 07/15/2024 6:56 AM EST 07/15/2024 7:52 AM EST us Kwesi Guido MD LAB BLOOD ORDERABLES F inal Result [facility] [address] [place] [address], * (ABNORMAL) CBC auto differential (07/15/2024 6:56 AM EST) WBC 23.7(H) 4.8 - 10.8 K/mcL LAB HEMETOLOGY METHOD 07/15/2024 8:54 AM EST [facility] RBC 3.10(L) 3.80 - 4.80 M/[facility] LAB HEMETOLOGY METHOD 07/15/2024 8:54 AM [facility] Hemoglobin 7.5(L) 11.5 - 16.0 g/dL LAB HEMETOLOGY METHOD 07/15/2024 8:54 AM [facility] Hematocrit 23.6(L) 35.0 - 47.0 % LAB HEMETOLOGY METHOD 07/15/2024 8:54 AM [facility] MCV 75.9(L) 79.0 - 98.0 FL LAB HEMETOLOGY METHOD 07/15/2024 8:54 AM [facility] MCH 24.1(L) 27.0 - 32.0 pcg LAB HEMETOLOGY METHOD 07/15/2024 8:54 AM [facility] MCHC 31.8(L) 32.0 - 37.0 g/dL LAB HEMETOLOGY METHOD 07/15/2024 8:54 AM [facility] RDW 22.7(H) 11.0 - 15.0 % LAB HEMETOLOGY METHOD 07/15/2024 8:54 AM [facility] Platelets 246 130 - 400 K/mcL LAB HEMETOLOGY METHOD 07/15/2024 8:54 AM [facility] MPV 10.3 7.0 - 11.0 FL LAB HEMETOLOGY METHOD 07/15/2024 8:54 AM [facility] NRBC 0.0 <1.0 % LAB HEMETOLOGY METHOD 07/15/2024 8:54 AM [facility] NRBC Absolute 0.00 <0.10 K/[facility] LAB HEMETOLOGY METHOD 07/15/2024 8:54 AM [facility] Neutrophils Relative 87.4 % LAB HEMETOLOGY METHOD 07/15/2024 8:54 AM [facility] Comment:This is an appended report. These results have been appended to a previously preliminary verified report. Lymphocytes Relative 3.5 % LAB HEMETOLOGY METHOD 07/15/2024 8:54 AM [facility] Comment:This is an appended report. These results have been appended to a previously preliminary verified report. Monocytes Relative 4.8 % LAB HEMETOLOGY METHOD 07/15/2024 8:54 AM [facility] Comment:This is an appended report. These results have been appended to a previously preliminary verified report. Eosinophils Relative 1.7 % LAB HEMETOLOGY METHOD 07/15/2024 8:54 AM [facility] Comment:This is an appended report. These results have been appended to a previously preliminary verified report. Basophils Relative 0.2 % LAB HEMETOLOGY METHOD 07/15/2024 8:54 AM [facility] Comment:This is an appended report. These results have been appended to a previously preliminary verified report. Immature Granulocytes Relative 2.4 % LAB HEMETOLOGY METHOD 07/15/2024 8:54 AM [facility] Comment:This is an appended report. These results have been appended to a previously preliminary verified report. Neutrophils Absolute 20.75(H) 1.50 - 7.00 K/[facility] LAB HEMETOLOGY METHOD 07/15/2024 8:54 AM [facility] Comment:This is an appended report. These results have been appended to a previously preliminary verified report. Lymphocytes Absolute 0.84(L) 1.00 - 5.00 K/[facility] LAB HEMETOLOGY METHOD 07/15/2024 8:54 AM EST [facility] Comment:This is an appended report. These results have been appended to a previously preliminary verified report. Monocytes Absolute 1.13(H) 0.20 - 1.00 K/[facility]/15/[facility] 8:54 AM EST [facility] Comment:This is an appended report. These results have been appended to a previously preliminary verified report. Eosinophils Absolute 0.41 0.00 - 0.50 K/[facility] 07/15/2024 8:54 AM EST [facility] Comment:This is an appended report. These results have been appended to a previously preliminary verified report. Basophils Absolute 0.05 0.00 - 0.20 K/[facility] 07/15/2024 8:54 AM EST [facility] Comment:This is an appended report. These results have been appended to a previously preliminary verified report. Immature Granulocytes Absolute 0.56(H) 0.00 - 0.03 K/[facility] 07/15/2024 8:54 AM EST [facility] Comment:This is an appended report. These results have been appended to a previously preliminary verified report. Blood Venous blood specimen / Unknown Venipuncture / Unknown 07/15/2024 6:56 AM EST 07/15/2024 7:52 AM EST us Kwesi Guido MD LAB BLOOD ORDERABLES F inal Result [facility] [address] [place] [address], * (ABNORMAL) Prothrombin time with INR (07/15/2024 6:56 AM EST) Protime 16.4(H) 10.6 - 13.9 sec LAB COAGULATION METHOD 07/15/2024 8:16 AM EST [facility] INR 1.3 LAB COAGULATION METHOD 07/15/2024 8:16 AM EST [facility] Blood Venous blood specimen / Unknown Venipuncture / Unknown 07/15/2024 6:56 AM EST 07/15/2024 7:52 AM EST us Kwesi Guido MD LAB BLOOD ORDERABLES F inal Result [facility] [address] [place] [address], [place] [phone] * Magnesium (07/15/2024 6:56 AM EST) [facility] [address] Magnesium 2.2 1.9 - 2.6 mg/dL LAB CHEMISTRY METHOD 07/15/2024 8:48 AM EST [facility] Blood Venous blood specimen / Unknown Venipuncture / Unknown 07/15/2024 6:56 AM EST 07/15/2024 7:52 AM EST us Kwesi Guido MD LAB BLOOD ORDERABLES F inal Result [facility] [address] [place] [address], [place] [phone] * (ABNORMAL) Basic metabolic panel (07/15/2024 6:56 AM EST) [facility] [address] Sodium 134 133 - 145 mmol/L LAB CHEMISTRY METHOD 07/15/2024 8:58 AM EST [facility] Potassium 3.8 3.5 - 5.5 mmol/L LAB CHEMISTRY METHOD 07/15/2024 8:58 AM EST [facility] Chloride 104 96 - 110 mmol/L LAB CHEMISTRY METHOD 07/15/2024 8:58 AM [facility] CO2 15(L) 21 - 32 mmol/L LAB CHEMISTRY METHOD 07/15/2024 8:58 AM [facility] Anion Gap 15(H) 3 - 11 LAB CHEMISTRY METHOD 07/15/2024 8:58 AM [facility] Glucose 82 70 - 100 mg/dL LAB CHEMISTRY METHOD 07/15/2024 8:58 AM [facility] BUN 95(H) 5 - 25 mg/dL LAB CHEMISTRY METHOD 07/15/2024 8:58 AM [facility] Creatinine 6.68(H) 0.50 - 1.10 mg/dL LAB CHEMISTRY METHOD 07/15/2024 8:58 AM [facility] eGFR 6(L) >=60 mL/min/1. 73m2 LAB CHEMISTRY METHOD 07/15/2024 8:58 AM [facility] Comment:Calculation based on the??Chronic Kidney Disease Epidemiology Collaboration (CKD-EPI) equation refit??without adjustment for race. BUN/Creatinine Ratio 14.2 LAB CHEMISTRY METHOD 07/15/2024 8:58 AM [facility] Calcium 8.3(L) 8.5 - 10.5 mg/dL LAB CHEMISTRY METHOD 07/15/2024 8:58 AM [facility] Blood Venous blood specimen / Unknown Venipuncture / Unknown 07/15/2024 6:56 AM EST 07/15/2024 7:52 AM EST us Kwesi Guido MD LAB BLOOD ORDERABLES F inal Result [facility] [address] [place] [address], [place] [phone] * (ABNORMAL) POCT Glucose, blood (07/14/2024 8:07 PM EST) Glucose POCT 122(H) 70 - 100 mg/dL 07/14/2024 8:07 PM EST [facility] Blood Capillary blood specimen / Unknown 07/14/2024 8:07 PM EST 07/14/2024 8:09 PM EST us Kwesi Guido MD LAB POINT OF ARE TEST DOCKED DEVICE UNSOLICITED RESULTS Final Result Performing Organization Address [facility]/ZIP Co de Phone Number [facility] [address] [place] [address], [place] [phone] * (ABNORMAL) POCT Glucose, blood (07/14/2024 4:26 PM EST) Glucose POCT 152(H) 70 - 100 mg/dL 07/14/2024 4:27 PM EST [facility] Blood Capillary blood specimen / Unknown 07/14/2024 4:26 PM EST 07/14/2024 4:28 PM EST us Kwesi Guido MD LAB POINT OF ARE TEST DOCKED DEVICE UNSOLICITED RESULTS Final Result Performing Organization Address [facility] Phone Number [facility] [address] [place] [address], [place] [phone] * POCT Glucose, blood (07/14/2024 11:32 AM EST) Glucose POCT 100 70 - 100 mg/dL 07/14/2024 11:37 AM EST [facility] Blood Capillary blood specimen / Unknown 07/14/2024 11:32 AM EST 07/14/2024 11:38 AM EST us Kwesi Guido MD LAB POINT OF C ARE TEST DOCKED DEVICE UNSOLICITED RESULTS Final Result Performing Organization Address City/[facility]/ZIP Co de Phone Number [facility] [address] [place] [address], [place] [phone] * POCT Glucose, blood (07/14/2024 8:19 AM EST) [facility] [address] Glucose POCT 72 70 - 100 mg/dL 07/14/2024 8:38 AM EST [facility] Blood Capillary blood specimen / Unknown 07/14/2024 8:19 AM EST 07/14/2024 8:39 AM EST us Kwesi Guido MD LAB POINT OF C ARE TEST DOCKED DEVICE UNSOLICITED RESULTS Final Result Performing Organization Address City/[facility]/ZIP Co de Phone Number [facility] [address] [place] [address], [place] [phone] * Extractable Nuclear Antibodies Profile (07/14/2024 6:00 AM EST) [facility] [address] SM Ab Negative Negative LAB CHEMISTRY METHOD 07/17/2024 12:29 PM EST [facility] SM Antibody Quant 2 <20 units LAB CHEMISTRY METHOD 07/17/2024 12:29 PM EST [facility] [employer] Ab Negative Negative LAB CHEMISTRY METHOD 07/17/2024 12:29 PM EST [facility] [employer] Antibody Quant 1 <20 units LAB CHEMISTRY METHOD 07/17/2024 12:29 PM EST [facility] Blood Venous blood specimen / Unknown 07/14/2024 6:00 AM EST 07/14/2024 6:35 AM EST us Kwesi Guido MD LAB BLOOD ORDERABLES F inal Result [facility] [address] [place] [address], [place] [phone] * C4 complement (07/14/2024 6:00 AM EST) [facility] [address] C4 Complement 18 16 - 47 mg/dL LAB CHEMISTRY METHOD 07/14/2024 11:20 AM EST [facility] Blood Venous blood specimen / Unknown 07/14/2024 6:00 AM EST 07/14/2024 6:35 AM EST us Kwesi Guido MD LAB BLOOD ORDERABLES F inal Result [facility] [address] [place] [address], [place] [phone] * (ABNORMAL) C3 complement (07/14/2024 6:00 AM EST) [facility] [address] C3 Complement 78(L) 88 - 201 mg/dL LAB CHEMISTRY METHOD 07/14/2024 11:20 AM EST [facility] Blood Venous blood specimen / Unknown 07/14/2024 6:00 AM EST 07/14/2024 6:35 AM EST us Kwesi Guido MD LAB BLOOD ORDERABLES F inal Result Performing Organization Address City/[facility]/ZIP Co de Phone Number [facility] [address] [place] [address], [place] [phone] * (ABNORMAL) Anti-neutrophilic cytoplasmic antibody (07/14/2024 6:00 AM EST) [facility] [address] Myeloperoxidase Ab Negative Negative LAB CHEMISTRY METHOD 07/20/2024 12:10 PM EST [facility] Myeloperoxidase Ab, Quant 2 <=20 units LAB CHEMISTRY METHOD 07/20/2024 12:10 PM EST [facility] Proteinase-3 Ab Positive(A ) Negative LAB CHEMISTRY METHOD 07/20/2024 12:10 PM EST [facility] Proteinase-3 Ab Quant 162(H) <=20 units LAB CHEMISTRY METHOD 07/20/2024 12:10 PM [facility] Blood Venous blood specimen / Unknown 07/14/2024 6:00 AM EST 07/14/2024 6:35 AM EST Kwesi Guido MD LAB BLOOD ORDERABLES F inal Result [facility] [address] [place] [address], * (ABNORMAL) CBC auto differential (07/14/2024 6:00 AM EST) WBC 19.8(H) 4.8 - 10.8 K/mcL LAB HEMETOLOGY METHOD 07/14/2024 6:56 AM [facility] RBC 2.90(L) 3.80 - 4.80 M/mcL LAB HEMETOLOGY METHOD 07/14/2024 6:56 AM [facility] Hemoglobin 7.0(L) 11.5 - 16.0 g/dL LAB HEMETOLOGY METHOD 07/14/2024 6:56 AM [facility] Hematocrit 21.8(L) 35.0 - 47.0 % LAB HEMETOLOGY METHOD 07/14/2024 6:56 AM [facility] MCV 75.7(L) 79.0 - 98.0 FL LAB HEMETOLOGY METHOD 07/14/2024 6:56 AM [facility] MCH 24.3(L) 27.0 - 32.0 pcg LAB HEMETOLOGY METHOD 07/14/2024 6:56 AM [facility] MCHC 32.1 32.0 - 37.0 g/dL LAB HEMETOLOGY METHOD 07/14/2024 6:56 AM [facility] RDW 21.6(H) 11.0 - 15.0 % LAB HEMETOLOGY METHOD 07/14/2024 6:56 AM [facility] Platelets 193 130 - 400 K/mcL LAB HEMETOLOGY METHOD 07/14/2024 6:56 AM [facility] MPV 9.9 7.0 - 11.0 FL LAB HEMETOLOGY METHOD 07/14/2024 6:56 AM [facility] NRBC 0.0 <1.0 % LAB HEMETOLOGY METHOD 07/14/2024 6:56 AM [facility] NRBC Absolute 0.00 <0.10 K/mcL LAB HEMETOLOGY METHOD 07/14/2024 6:56 AM [facility] Neutrophils Relative 85.1 % LAB HEMETOLOGY METHOD 07/14/2024 6:56 AM [facility] Lymphocytes Relative 3.7 % LAB HEMETOLOGY METHOD 07/14/2024 6:56 AM [facility] Monocytes Relative 6.1 % LAB HEMETOLOGY METHOD 07/14/2024 6:56 AM [facility] Eosinophils Relative 2.5 % LAB HEMETOLOGY METHOD 07/14/2024 6:56 AM [facility] Basophils Relative 0.2 % LAB HEMETOLOGY METHOD 07/14/2024 6:56 AM [facility] Immature Granulocytes Relative 2.4 % LAB HEMETOLOGY METHOD 07/14/2024 6:56 AM [facility] Neutrophils Absolute 16.82(H) 1.50 - 7.00 K/mcL LAB HEMETOLOGY METHOD 07/14/2024 6:56 AM [facility] Lymphocytes Absolute 0.74(L) 1.00 - 5.00 K/mcL LAB HEMETOLOGY METHOD 07/14/2024 6:56 AM [facility] Monocytes Absolute 1.20(H) 0.20 - 1.00 K/mcL LAB HEMETOLOGY METHOD 07/14/2024 6:56 AM [facility] Eosinophils Absolute 0.50 0.00 - 0.50 K/[facility] LAB HEMETOLOGY METHOD 07/14/2024 6:56 AM EST [facility] Basophils Absolute 0.04 0.00 - 0.20 K/[facility] LAB HEMETOLOGY METHOD 07/14/2024 6:56 AM EST [facility] Immature Granulocytes Absolute 0.48(H) 0.00 - 0.03 K/[facility] LAB HEMETOLOGY METHOD 07/14/2024 6:56 AM EST [facility] Blood Venous blood specimen / Unknown 07/14/2024 6:00 AM EST 07/14/2024 6:36 AM EST us Kwesi Guido MD LAB BLOOD ORDERABLES F inal Result Performing Organization Address City/[facility]/ZIP Co de Phone Number [facility] [address] [place] [address], [place] [phone] * Magnesium (07/14/2024 6:00 AM EST) Magnesium 2.0 1.9 - 2.6 mg/dL LAB CHEMISTRY METHOD 07/14/2024 7:23 AM EST [facility] Blood Venous blood specimen / Unknown 07/14/2024 6:00 AM EST 07/14/2024 6:35 AM EST us Kwesi Guido MD LAB BLOOD ORDERABLES F inal Result [facility] [address] [place] [address], [place] [phone] * (ABNORMAL) Basic metabolic panel (07/14/2024 6:00 AM EST) Sodium 132(L) 133 - 145 mmol/L LAB CHEMISTRY METHOD 07/14/2024 7:38 AM EST [facility] Potassium 3.4(L) 3.5 - 5.5 mmol/L LAB CHEMISTRY METHOD 07/14/2024 7:38 AM [facility] Chloride 104 96 - 110 mmol/L LAB CHEMISTRY METHOD 07/14/2024 7:38 AM [facility] CO2 18(L) 21 - 32 mmol/L LAB CHEMISTRY METHOD 07/14/2024 7:38 AM [facility] Anion Gap 10 3 - 11 LAB CHEMISTRY METHOD 07/14/2024 7:38 AM [facility] Glucose 69(L) 70 - 100 mg/dL LAB CHEMISTRY METHOD 07/14/2024 7:38 AM [facility] BUN 84(H) 5 - 25 mg/dL LAB CHEMISTRY METHOD 07/14/2024 7:38 AM [facility] Creatinine 5.84(H) 0.50 - 1.10 mg/dL LAB CHEMISTRY METHOD 07/14/2024 7:38 AM [facility] eGFR 7(L) >=60 mL/min/1. 73m2 LAB CHEMISTRY METHOD 07/14/2024 7:38 AM [facility] Comment:Calculation based on the??Chronic Kidney Disease Epidemiology Collaboration (CKD-EPI) equation refit??without adjustment for race. BUN/Creatinine Ratio 14.4 LAB CHEMISTRY METHOD 07/14/2024 7:38 AM [facility] Calcium 8.2(L) 8.5 - 10.5 mg/dL LAB CHEMISTRY METHOD 07/14/2024 7:38 AM [facility] Blood Venous blood specimen / Unknown 07/14/2024 6:00 AM EST 07/14/2024 6:35 AM EST us Kwesi Guido MD LAB BLOOD ORDERABLES F inal Result [facility] [address] [place] [address], [place] [phone] * (ABNORMAL) POCT Glucose, blood (07/13/2024 8:53 PM EST) Glucose POCT 153(H) 70 - 100 mg/dL 07/13/2024 8:55 PM EST [facility] Blood Capillary blood specimen / Unknown 07/13/2024 8:53 PM EST 07/13/2024 8:56 PM EST us Kwesi Guido MD LAB POINT OF C ARE TEST DOCKED DEVICE UNSOLICITED RESULTS Final Result [facility] [address] [place] [address], [place] [phone] * Transfuse RBC (07/13/2024 7:03 PM EST) us Kwesi Guido MD BLOOD TRANSFUSION ORDE RABLES Final Result * Transfuse RBC: 1 Units (07/13/2024 7:03 PM EST) us Kwesi Guido MD BLOOD TRANSFUSION ORDE RABLES Final Result * (ABNORMAL) POCT Glucose, blood (07/13/2024 3:53 PM EST) Glucose POCT 115(H) 70 - 100 mg/dL 07/13/2024 3:56 PM EST [facility] Blood Capillary blood specimen / Unknown 07/13/2024 3:53 PM EST 07/13/2024 3:57 PM EST us Kwesi Guido MD LAB POINT OF C ARE TEST DOCKED DEVICE UNSOLICITED RESULTS Final Result [facility] [address] [place] [address], [place] [phone] * (ABNORMAL) POCT Glucose, blood (07/13/2024 10:58 AM EST) Glucose POCT 106(H) 70 - 100 mg/dL 07/13/2024 10:58 AM EST [facility] Blood Capillary blood specimen / Unknown 07/13/2024 10:58 AM EST 07/13/2024 10:59 AM EST us Kwesi Guido MD LAB POINT OF C ARE TEST DOCKED DEVICE UNSOLICITED RESULTS Final Result [facility] [address] [place] [address], * Prepare RBC: 1 Units (07/13/2024 10:44 AM EST) Product Code [id number] 07/13/2024 12:34 PM [facility] Unit Number [id number] 07/13/19 12:34 PM [facility] Crossmatch Compatible 07/13/2024 11:06 AM [facility] Dispense Status Transfused 07/13/2024 12:34 PM [facility] Unit ABO Rh OPOS 07/13/2024 12:34 PM [facility] Unit Expiration Date Time [id number] 07/13/2024 12:34 PM [facility] Unit Blood Type 5100 07/13/2024 12:34 PM [facility] Blood Venous blood specimen / Unknown 07/13/2024 10:44 AM EST 07/13/2024 8:32 AM EST us Kwesi Guido MD BLOOD BANK PRODUCT ORD ERABLES Final Result [facility] [address] [place] [address], [place] [phone] * Type and screen (07/13/2024 8:24 AM EST) ABO Group O 07/13/2024 10:29 AM EST [facility] Rh Type Positive 07/13/2024 10:29 AM EST [facility] Antibody Screen Negative 07/13/2024 10:29 AM EST [facility] Blood Venous blood specimen / Unknown Venipuncture / Unknown 07/13/2024 8:24 AM EST 07/13/2024 8:32 AM EST us Kwesi Guido MD LAB BLOOD BANK TEST OR DERABLES Final Result [facility] [address] [place] [address], [place] [phone] * POCT Glucose, blood (07/13/2024 8:13 AM EST) [facility] [address] Glucose POCT 87 70 - 100 mg/dL 07/13/2024 8:20 AM EST [facility] Blood Capillary blood specimen / Unknown 07/13/2024 8:13 AM EST 07/13/2024 8:21 AM EST us Kwesi Guido MD LAB POINT OF C ARE TEST DOCKED DEVICE UNSOLICITED RESULTS Final Result [facility] [address] [place] [address], [place] [phone] * (ABNORMAL) CBC auto differential (07/13/2024 6:38 AM EST) Pathologist [facility] WBC 20.6(H) 4.8 - 10.8 K/[facility] LAB HEMETOLOGY METHOD 07/13/2024 7:14 AM [facility] RBC 2.70(L) 3.80 - 4.80 M/mcL LAB HEMETOLOGY METHOD 07/13/2024 7:14 AM [facility] Hemoglobin 6.5(L) 11.5 - 16.0 g/dL LAB HEMETOLOGY METHOD 07/13/2024 7:14 AM [facility] Hematocrit 20.3(L) 35.0 - 47.0 % LAB HEMETOLOGY METHOD 07/13/2024 7:14 AM [facility] MCV 74.4(L) 79.0 - 98.0 FL LAB HEMETOLOGY METHOD 07/13/2024 7:14 AM [facility] MCH 23.8(L) 27.0 - 32.0 pcg LAB HEMETOLOGY METHOD 07/13/2024 7:14 AM [facility] MCHC 32.0 32.0 - 37.0 g/dL LAB HEMETOLOGY METHOD 07/13/2024 7:14 AM [facility] RDW 21.4(H) 11.0 - 15.0 % LAB HEMETOLOGY METHOD 07/13/2024 7:14 AM [facility] Platelets 199 130 - 400 K/mcL LAB HEMETOLOGY METHOD 07/13/2024 7:14 AM [facility] MPV 9.9 7.0 - 11.0 FL LAB HEMETOLOGY METHOD 07/13/2024 7:14 AM [facility] NRBC 0.0 <1.0 % LAB HEMETOLOGY METHOD 07/13/2024 7:14 AM [facility] NRBC Absolute 0.00 <0.10 K/mcL LAB HEMETOLOGY METHOD 07/13/2024 7:14 AM [facility] Neutrophils Relative 84.4 % LAB HEMETOLOGY METHOD 07/13/2024 7:14 AM [facility] Lymphocytes Relative 3.9 % LAB HEMETOLOGY METHOD 07/13/2024 7:14 AM [facility] Monocytes Relative 6.3 % LAB HEMETOLOGY METHOD 07/13/2024 7:14 AM [facility] Eosinophils Relative 3.3 % LAB HEMETOLOGY METHOD 07/13/2024 7:14 AM [facility] Basophils Relative 0.1 % LAB HEMETOLOGY METHOD 07/13/2024 7:14 AM [facility] Immature Granulocytes Relative 2.0 % LAB HEMETOLOGY METHOD 07/13/2024 7:14 AM [facility] Neutrophils Absolute 17.36(H) 1.50 - 7.00 K/mcL LAB HEMETOLOGY METHOD 07/13/2024 7:14 AM [facility] Lymphocytes Absolute 0.81(L) 1.00 - 5.00 K/mcL LAB HEMETOLOGY METHOD 07/13/2024 7:14 AM [facility] Monocytes Absolute 1.30(H) 0.20 - 1.00 K/mcL LAB HEMETOLOGY METHOD 07/13/2024 7:14 AM [facility] Eosinophils Absolute 0.67(H) 0.00 - 0.50 K/mcL LAB HEMETOLOGY METHOD 07/13/2024 7:14 AM [facility] Basophils Absolute 0.03 0.00 - 0.20 K/mcL LAB HEMETOLOGY METHOD 07/13/2024 7:14 AM [facility] Immature Granulocytes Absolute 0.41(H) 0.00 - 0.03 K/mcL LAB HEMETOLOGY METHOD 07/13/2024 7:14 AM [facility] Blood Venous blood specimen / Unknown Venipuncture / Unknown 07/13/2024 6:38 AM EST 07/13/2024 6:51 AM EST us Kwesi Guido MD LAB BLOOD ORDERABLES F inal Result [facility] [address] [place] [address], [place] [phone] * Phosphorus (07/13/2024 6:38 AM EST) Pathologist [facility] Phosphorus 3.0 2.5 - 4.5 mg/dL LAB CHEMISTRY METHOD 07/13/2024 7:44 AM EST [facility] Blood Venous blood specimen / Unknown Venipuncture / Unknown 07/13/2024 6:38 AM EST 07/13/2024 6:50 AM EST us Kwesi Guido MD LAB BLOOD ORDERABLES F inal Result Performing Organization Address City/[facility]/ZIP Co de Phone Number [facility] [address] [place] [address], [place] [phone] * Magnesium (07/13/2024 6:38 AM EST) [facility] [address] Magnesium 1.9 1.9 - 2.6 mg/dL LAB CHEMISTRY METHOD 07/13/2024 7:44 AM EST [facility] Blood Venous blood specimen / Unknown Venipuncture / Unknown 07/13/2024 6:38 AM EST 07/13/2024 6:50 AM EST us Kwesi Guido MD LAB BLOOD ORDERABLES F inal Result [facility] [address] [place] [address], [place] [phone] * (ABNORMAL) Basic metabolic panel (07/13/2024 6:38 AM EST) Pathologist [facility] Sodium 132(L) 133 - 145 mmol/L LAB CHEMISTRY METHOD 07/13/2024 7:57 AM [facility] Potassium 3.6 3.5 - 5.5 mmol/L LAB CHEMISTRY METHOD 07/13/2024 7:57 AM [facility] Chloride 104 96 - 110 mmol/L LAB CHEMISTRY METHOD 07/13/2024 7:57 AM [facility] CO2 18(L) 21 - 32 mmol/L LAB CHEMISTRY METHOD 07/13/2024 7:57 AM [facility] Anion Gap 10 3 - 11 LAB CHEMISTRY METHOD 07/13/2024 7:57 AM [facility] Glucose 71 70 - 100 mg/dL LAB CHEMISTRY METHOD 07/13/2024 7:57 AM [facility] BUN 73(H) 5 - 25 mg/dL LAB CHEMISTRY METHOD 07/13/2024 7:57 AM [facility] Creatinine 5.13(H) 0.50 - 1.10 mg/dL LAB CHEMISTRY METHOD 07/13/2024 7:57 AM [facility] eGFR 8(L) >=60 mL/min/1. 73m2 LAB CHEMISTRY METHOD 07/13/2024 7:57 AM [facility] Comment:Calculation based on the??Chronic Kidney Disease Epidemiology Collaboration (CKD-EPI) equation refit??without adjustment for race. BUN/Creatinine Ratio 14.2 LAB CHEMISTRY METHOD 07/13/2024 7:57 AM [facility] Calcium 8.1(L) 8.5 - 10.5 mg/dL LAB CHEMISTRY METHOD 07/13/2024 7:57 AM [facility] Blood Venous blood specimen / Unknown Venipuncture / Unknown 07/13/2024 6:38 AM EST 07/13/2024 6:50 AM EST us Kwesi Guido MD LAB BLOOD ORDERABLES F inal Result [facility] [address] [place] [address], [place] [phone] * Uric acid (07/13/2024 6:38 AM EST) [facility] [address] Uric Acid 7.5 3.1 - 7.8 mg/dL LAB CHEMISTRY METHOD 07/13/2024 7:44 AM EST [facility] Blood Venous blood specimen / Unknown Venipuncture / Unknown 07/13/2024 6:38 AM EST 07/13/2024 6:50 AM EST us Chencho Wayne MD LAB BLOOD ORDERABLES Final Resu lt [facility] [address] [place] [address], [place] [phone] * (ABNORMAL) Sedimentation rate (07/13/2024 6:38 AM EST) [facility] [address] Sed Rate 84(H) 0 - 30 mm/hr LAB HEMETOLOGY METHOD 07/13/2024 7:32 AM EST [facility] Blood Venous blood specimen / Unknown Venipuncture / Unknown 07/13/2024 6:38 AM EST 07/13/2024 6:51 AM EST us Kwesi Guido MD LAB BLOOD ORDERABLES F inal Result [facility] [address] [place] [address], [place] [phone] * (ABNORMAL) POCT Glucose, blood (07/12/2024 8:06 PM EST) [facility] [address] Glucose POCT 125(H) 70 - 100 mg/dL 07/12/2024 8:08 PM EST [facility] Blood Capillary blood specimen / Unknown 07/12/2024 8:06 PM EST 07/12/2024 8:09 PM EST us Kwesi Guido MD LAB POINT OF ARE TEST DOCKED DEVICE UNSOLICITED RESULTS Final Result Performing Organization Address [facility]/ZIP Co de Phone Number [facility] [address] [place] [address], [place] [phone] * (ABNORMAL) POCT Glucose, blood (07/12/2024 3:53 PM EST) Glucose POCT 143(H) 70 - 100 mg/dL 07/12/2024 3:57 PM EST [facility] Blood Capillary blood specimen / Unknown 07/12/2024 3:53 PM EST 07/12/2024 3:59 PM EST us Kwesi Guido MD LAB POINT OF C ARE TEST DOCKED DEVICE UNSOLICITED RESULTS Final Result Performing Organization Address [facility] Co de Phone Number [facility] [address] [place] [address], [place] [phone] * (ABNORMAL) Protein and creatinine with ratio, urine (07/12/2024 3:27 PM EST) Protein, Urine 192 mg/dL LAB CHEMISTRY METHOD 07/12/2024 6:44 PM EST [facility] Prot/Creat, Ur 3.00(H) <=0.20 mg/mg creat LAB CHEMISTRY METHOD 07/12/2024 6:44 PM EST [facility] Creatinine, Urine 64.0 mg/dL LAB CHEMISTRY METHOD 07/12/2024 6:44 PM EST [facility] Urine Urine specimen obtained by clean catch procedure / Unknown Non-blood Collection / Unknown 07/12/2024 3:27 PM EST 07/12/2024 4:10 PM EST us Chencho Wayne MD LAB URINE ORDERABLES Final Resu lt Performing Organization Address [facility] Co de Phone Number [facility] [address] [place] [address], * Creatinine, urine, random (07/12/2024 3:27 PM EST) Creatinine, Urine 64.0 mg/dL LAB CHEMISTRY METHOD 07/12/2024 4:41 PM EST [facility] Urine Urine specimen from urethra / Unknown Non-blood Collection / Unknown 07/12/2024 3:27 PM EST 07/12/2024 4:11 PM EST Chencho Wayne MD LAB URINE ORDERABLES Final Resu lt Performing Organization Address [facility] Co de Phone Number [facility] [address] [place] [address], * Sodium, urine, random (07/12/2024 3:27 PM EST) Sodium, Ur 34 mmol/L LAB CHEMISTRY METHOD 07/12/2024 6:44 PM EST [facility] Urine Urine specimen obtained by clean catch procedure / Unknown Non-blood Collection / Unknown 07/12/2024 3:27 PM EST 07/12/2024 4:10 PM EST Aye HEDRICK LAB URINE ORDERABLES Final Re sult Performing Organization Address [facility]/ZIP Co de Phone Number [facility] [address] [place] [address], [place] [phone] * Osmolality, urine (07/12/2024 3:27 PM EST) Osmolality, Urine 397 300 - 1,300 mOsm/kg LAB CHEMISTRY METHOD 07/12/2024 5:57 PM EST [facility] Urine Urine specimen obtained by clean catch procedure / Unknown Non-blood Collection / Unknown 07/12/2024 3:27 PM EST 07/12/2024 4:10 PM EST us Aye HEDRICK LAB URINE ORDERABLES Final Re sult [facility] [address] [place] [address], [place] [phone] * CT Chest wo Contrast (07/12/2024 12:48 PM EST) Anatomical Region Laterality Modality Body Computed Tomogra phy 07/12/2024 1:07 PM EST Impressions 07/12/2024 1:19 PM EST Impression: 1. No significant change in an irregular juxtapleural nodular opacity in the right lung apex. Malignancy is not excluded. 2. No developing lymphadenopathy. 3. Small bilateral pleural effusions, new. Starr HEDRICK ([id number]) -------- FINAL REPORT -------- Dictated By: Edilia Durbin Dictated Date: 07/12/2024 13:07 ET Assigned Physician: Edilia Durbin Reviewed and Electronically Signed By: Edilia Durbin Signed Date: 07/12/2024 13:19 ET Workstation ID: [id number] Transcribed By: Self Edit Transcribed Date: 07/12/2024 13:07 ET Narrative 07/12/2024 1:19 PM EST History: Abnormal chest radiograph. The patient underwent nondiagnostic CT- guided biopsy of the right apical lung nodule on 05/23/24. Comparison: Thoracic CT 06/17/24, 03/21/24 Technique: Helical volumetric imaging of the thorax was performed without IV contrast. DLP: 613.10 mGy/cm VesselVanguard VCT Iterative reconstruction technique Findings: Respiratory motion [...] was performed withoutIV contrast. DLP: 613.10 mGy/cm VesselVanguard VCT Iterative reconstruction technique Findings: Respiratory motion [...] Small bilateral pleural effusions, new. Telerad RYLEY ([id number]) -------- FINAL REPORT -------- Dictated By: Edilia Durbin Dictated Date: 07/12/2024 13:07 ET Assigned Physician: Edilia Durbin Reviewed and Electronically Signed By: Edilia Durbin Signed Date: 07/12/2024 13:19 ET Workstation ID: [id number] Transcribed By: Self Edit Transcribed Date: 07/12/2024 13:07 ET us Kwesi Guido MD IMG CT PROCEDURES [place] Result * (ABNORMAL) POCT Glucose, blood (07/12/2024 11:48 AM EST) Glucose POCT 176(H) 70 - 100 mg/dL 07/12/2024 11:49 AM EST [facility] Blood Capillary blood specimen / Unknown 07/12/2024 11:48 AM EST 07/12/2024 11:50 AM EST us Kwesi Guido MD LAB POINT OF ARE TEST DOCKED DEVICE UNSOLICITED RESULTS Final Result Performing Organization Address [facility] Co de Phone Number [facility] [address] [place] [address], [place] [phone] * (ABNORMAL) POCT Glucose, blood (07/12/2024 8:07 AM EST) Glucose POCT 166(H) 70 - 100 mg/dL 07/12/2024 8:31 AM EST [facility] Blood Capillary blood specimen / Unknown 07/12/2024 8:07 AM EST 07/12/2024 8:32 AM EST us Kwesi Guido MD LAB POINT OF C ARE TEST DOCKED DEVICE UNSOLICITED RESULTS Final Result [facility] [address] [place] [address], [place] [phone] * (ABNORMAL) Lipase (07/12/2024 6:19 AM EST) Pathologist [facility] Lipase <10(L) 13 - 75 unit/L LAB CHEMISTRY METHOD 07/12/2024 3:26 PM [facility] Blood Venous blood specimen / Unknown Venipuncture / Unknown 07/12/2024 6:19 AM EST 07/12/2024 6:56 AM EST Kwesi Guido MD LAB BLOOD ORDERABLES F inal Result Performing Organization Address [facility]/ZIP Co de Phone Number [facility] [address] [place] [address], [place] [phone] * (ABNORMAL) Hepatic function panel (07/12/2024 6:19 AM EST) Pathologist [facility] Total Protein 4.9(L) 6.0 - 8.0 g/dL LAB CHEMISTRY METHOD 07/12/2024 3:26 PM [facility] Albumin 1.5(L) 3.2 - 5.0 g/dL LAB CHEMISTRY METHOD 07/12/2024 3:26 PM EST [facility] Total Bilirubin 0.5 0.0 - 1.4 mg/dL LAB CHEMISTRY METHOD 07/12/2024 3:26 PM [facility] Bilirubin, Direct 0.2 0.0 - 0.3 mg/dL LAB CHEMISTRY METHOD 07/12/2024 3:26 PM [facility] Bilirubin, Indirect 0.3 0.0 - 1.1 mg/dL LAB CHEMISTRY METHOD 07/12/2024 3:26 PM [facility] ALT (SGPT) 37 10 - 60 unit/L LAB CHEMISTRY METHOD 07/12/2024 3:26 PM [facility] AST (SGOT) 32 10 - 42 unit/L LAB CHEMISTRY METHOD 07/12/2024 3:26 PM EST [facility] Alkaline Phosphatase 157(H) 42 - 121 unit/L LAB CHEMISTRY METHOD 07/12/2024 3:26 PM EST [facility] Blood Venous blood specimen / Unknown Venipuncture / Unknown 07/12/2024 6:19 AM EST 07/12/2024 6:56 AM EST us Kwesi Guido MD LAB BLOOD ORDERABLES F inal Result [facility] [address] [place] [address], * (ABNORMAL) Procalcitonin (07/12/2024 6:19 AM EST) Procalcitonin 3.11(H) <=0.16 ng/mL LAB CHEMISTRY METHOD 07/12/2024 12:23 PM EST [facility] Blood Venous blood specimen / Unknown Venipuncture / Unknown 07/12/2024 6:19 AM EST 07/12/2024 6:56 AM EST Narrative [facility] - 07/12/2024 12:23 PM [...] ORDERABLES F inal Result Performing Organization Address [facility]/ZIP Co de Phone Number [facility] [address] [place] [address], [place] [phone] * (ABNORMAL) C-reactive protein (07/12/2024 6:19 AM EST) Pathologist [facility] C-Reactive Protein 16.60(H) <=0.50 mg/dL LAB CHEMISTRY METHOD 07/12/2024 10:35 AM [facility] Blood Venous blood specimen / Unknown Venipuncture / Unknown 07/12/2024 6:19 AM EST 07/12/2024 6:56 AM EST us Kwesi Guido MD LAB BLOOD ORDERABLES F inal Result Performing Organization Address [facility] Co de Phone Number [facility] [address] [place] [address], * (ABNORMAL) CBC auto differential (07/12/2024 6:19 AM EST) [facility] [address] WBC 21.8(H) 4.8 - 10.8 K/mcL LAB HEMETOLOGY METHOD 07/12/2024 7:08 AM [facility] RBC 3.10(L) 3.80 - 4.80 M/mcL LAB HEMETOLOGY METHOD 07/12/2024 7:08 AM [facility] Hemoglobin 7.2(L) 11.5 - 16.0 g/dL LAB HEMETOLOGY METHOD 07/12/2024 7:08 AM [facility] Hematocrit 22.6(L) 35.0 - 47.0 % LAB HEMETOLOGY METHOD 07/12/2024 7:08 AM [facility] MCV 74.1(L) 79.0 - 98.0 FL LAB HEMETOLOGY METHOD 07/12/2024 7:08 AM [facility] MCH 23.6(L) 27.0 - 32.0 pcg LAB HEMETOLOGY METHOD 07/12/2024 7:08 AM [facility] MCHC 31.9(L) 32.0 - 37.0 g/dL LAB HEMETOLOGY METHOD 07/12/2024 7:08 AM [facility] RDW 21.0(H) 11.0 - 15.0 % LAB HEMETOLOGY METHOD 07/12/2024 7:08 AM [facility] Platelets 206 130 - 400 K/mcL LAB HEMETOLOGY METHOD 07/12/2024 7:08 AM [facility] MPV 9.6 7.0 - 11.0 FL LAB HEMETOLOGY METHOD 07/12/2024 7:08 AM [facility] NRBC 0.0 <1.0 % LAB HEMETOLOGY METHOD 07/12/2024 7:08 AM [facility] NRBC Absolute 0.00 <0.10 K/mcL LAB HEMETOLOGY METHOD 07/12/2024 7:08 AM [facility] Neutrophils Relative 86.5 % LAB HEMETOLOGY METHOD 07/12/2024 7:08 AM [facility] Lymphocytes Relative 2.7 % LAB HEMETOLOGY METHOD 07/12/2024 7:08 AM [facility] Monocytes Relative 5.8 % LAB HEMETOLOGY METHOD 07/12/2024 7:08 AM [facility] Eosinophils Relative 2.8 % LAB HEMETOLOGY METHOD 07/12/2024 7:08 AM [facility] Basophils Relative 0.2 % LAB HEMETOLOGY METHOD 07/12/2024 7:08 AM [facility] Immature Granulocytes Relative 2.0 % LAB HEMETOLOGY METHOD 07/12/2024 7:08 AM [facility] Neutrophils Absolute 18.89(H) 1.50 - 7.00 K/mcL LAB HEMETOLOGY METHOD 07/12/2024 7:08 AM [facility] Lymphocytes Absolute 0.59(L) 1.00 - 5.00 K/mcL LAB HEMETOLOGY METHOD 07/12/2024 7:08 AM [facility] Monocytes Absolute 1.27(H) 0.20 - 1.00 K/mcL LAB HEMETOLOGY METHOD 07/12/2024 7:08 AM [facility] Eosinophils Absolute 0.62(H) 0.00 - 0.50 K/mcL LAB HEMETOLOGY METHOD 07/12/2024 7:08 AM [facility] Basophils Absolute 0.04 0.00 - 0.20 K/mcL LAB HEMETOLOGY METHOD 07/12/2024 7:08 AM [facility] Immature Granulocytes Absolute 0.43(H) 0.00 - 0.03 K/mcL LAB HEMETOLOGY METHOD 07/12/2024 7:08 AM [facility] Blood Venous blood specimen / Unknown Venipuncture / Unknown 07/12/2024 6:19 AM EST 07/12/2024 6:58 AM EST us Kwesi Guido MD LAB BLOOD ORDERABLES F inal Result [facility] [address] [place] [address], * Phosphorus (07/12/2024 6:19 AM EST) Phosphorus 2.9 2.5 - 4.5 mg/dL LAB CHEMISTRY METHOD 07/12/2024 7:48 AM EST [facility] Blood Venous blood specimen / Unknown Venipuncture / Unknown 07/12/2024 6:19 AM EST 07/12/2024 6:56 AM EST us Kwesi Guido MD LAB BLOOD ORDERABLES F inal Result Performing Organization Address [facility]/ZIP Co de Phone Number [facility] [address] [place] [address], [place] [phone] * (ABNORMAL) Magnesium (07/12/2024 6:19 AM EST) Pathologist [facility] Magnesium 1.8(L) 1.9 - 2.6 mg/dL LAB CHEMISTRY METHOD 07/12/2024 7:48 AM EST [facility] Blood Venous blood specimen / Unknown Venipuncture / Unknown 07/12/2024 6:19 AM EST 07/12/2024 6:56 AM EST us Kwesi Guido MD LAB BLOOD ORDERABLES F inal Result Performing Organization Address [facility]/ZIP Co de Phone Number [facility] [address] [place] [address], [place] [phone] * (ABNORMAL) Basic metabolic panel (07/12/2024 6:19 AM EST) Sodium 132(L) 133 - 145 mmol/L LAB CHEMISTRY METHOD 07/12/2024 7:49 AM EST [facility] Potassium 3.7 3.5 - 5.5 mmol/L LAB CHEMISTRY METHOD 07/12/2024 7:49 AM EST [facility] Chloride 102 96 - 110 mmol/L LAB CHEMISTRY METHOD 07/12/2024 7:49 AM EST [facility] CO2 18(L) 21 - 32 mmol/L LAB CHEMISTRY METHOD 07/12/2024 7:49 AM EST [facility] Anion Gap 12(H) 3 - 11 LAB CHEMISTRY METHOD 07/12/2024 7:49 AM [facility] Glucose 132(H) 70 - 100 mg/dL LAB CHEMISTRY METHOD 07/12/2024 7:49 AM [facility] BUN 70(H) 5 - 25 mg/dL LAB CHEMISTRY METHOD 07/12/2024 7:49 AM [facility] Creatinine 4.64(H) 0.50 - 1.10 mg/dL LAB CHEMISTRY METHOD 07/12/2024 7:49 AM [facility] eGFR 9(L) >=60 mL/min/1. 73m2 LAB CHEMISTRY METHOD 07/12/2024 7:49 AM [facility] Comment:Calculation based on the??Chronic Kidney Disease Epidemiology Collaboration (CKD-EPI) equation refit??without adjustment for race. BUN/Creatinine Ratio 15.1 LAB CHEMISTRY METHOD 07/12/2024 7:49 AM [facility] Calcium 8.1(L) 8.5 - 10.5 mg/dL LAB CHEMISTRY METHOD 07/12/2024 7:49 AM [facility] Blood Venous blood specimen / Unknown Venipuncture / Unknown 07/12/2024 6:19 AM EST 07/12/2024 6:56 AM EST Kwesi Guido MD LAB BLOOD ORDERABLES F inal Result [facility] [address] [place] [address], * (ABNORMAL) POCT Glucose, blood (07/11/2024 8:03 PM EST) Glucose POCT 257(H) 70 - 100 mg/dL 07/11/2024 8:04 PM [facility] POCT Comment RN Notified 07/11/2024 8:04 PM EST [facility] Blood Capillary blood specimen / Unknown 07/11/2024 8:03 PM EST 07/11/2024 8:05 PM EST us Kwesi Guido MD LAB POINT OF ARE TEST DOCKED DEVICE UNSOLICITED RESULTS Final Result Performing Organization Address City/[facility]/ZIP Co de Phone Number [facility] [address] [place] [address], [place] [phone] * (ABNORMAL) POCT Glucose, blood (07/11/2024 3:51 PM EST) Glucose POCT 259(H) 70 - 100 mg/dL 07/11/2024 3:51 PM EST [facility] Blood Capillary blood specimen / Unknown 07/11/2024 3:51 PM EST 07/11/2024 3:52 PM EST us Kwesi Guido MD LAB POINT OF ARE TEST DOCKED DEVICE UNSOLICITED RESULTS Final Result Performing Organization Address [facility] Co de Phone Number [facility] [address] [place] [address], [place] [phone] * (ABNORMAL) POCT Glucose, blood (07/11/2024 11:10 AM EST) Glucose POCT 301(H) 70 - 100 mg/dL 07/11/2024 11:11 AM EST [facility] Blood Capillary blood specimen / Unknown 07/11/2024 11:10 AM EST 07/11/2024 11:13 AM EST us Kwesi Guido MD LAB POINT OF ARE TEST DOCKED DEVICE UNSOLICITED RESULTS Final Result Performing Organization Address City/[facility]/ZIP Co de Phone Number [facility] [address] [place] [address], [place] [phone] * (ABNORMAL) POCT Glucose, blood (07/11/2024 8:17 AM EST) [facility] [address] Glucose POCT 191(H) 70 - 100 mg/dL 07/11/2024 8:17 AM EST [facility] Blood Capillary blood specimen / Unknown 07/11/2024 8:17 AM EST 07/11/2024 8:19 AM EST Kwesi Guido MD LAB POINT OF C ARE TEST DOCKED DEVICE UNSOLICITED RESULTS Final Result Performing Organization Address City/[facility]/ZIP Co de Phone Number [facility] [address] [place] [address], [place] [phone] * Pathologist Review Immunofixation (07/11/2024 6:21 AM EST) [facility] [address] Pathologist Interpretation Reviewed by Rosenda Galeana MD 07/13/2024 4:13 PM EST [facility] Blood Venous blood specimen / Unknown Venipuncture / Unknown 07/11/2024 6:21 AM EST 07/11/2024 6:43 AM EST Chencho Wayne MD LAB BLOOD ORDERABLES Final Resu lt [facility] [address] [place] [address], [place] [phone] * (ABNORMAL) Hepatic function panel (07/11/2024 6:21 AM EST) [facility] [address] Total Protein 5.1(L) 6.0 - 8.0 g/dL LAB CHEMISTRY METHOD 07/12/2024 3:26 PM EST [facility] Albumin 1.5(L) 3.2 - 5.0 g/dL LAB CHEMISTRY METHOD 07/12/2024 3:26 PM EST [facility] Total Bilirubin 0.6 0.0 - 1.4 mg/dL LAB CHEMISTRY METHOD 07/12/2024 3:26 PM [facility] Bilirubin, Direct 0.3 0.0 - 0.3 mg/dL LAB CHEMISTRY METHOD 07/12/2024 3:26 PM [facility] Bilirubin, Indirect 0.3 0.0 - 1.1 mg/dL LAB CHEMISTRY METHOD 07/12/2024 3:26 PM [facility] ALT (SGPT) 39 10 - 60 unit/L LAB CHEMISTRY METHOD 07/12/2024 3:26 PM [facility] AST (SGOT) 36 10 - 42 unit/L LAB CHEMISTRY METHOD 07/12/2024 3:26 PM [facility] Alkaline Phosphatase 168(H) 42 - 121 unit/L LAB CHEMISTRY METHOD 07/12/2024 3:26 PM [facility] Blood Venous blood specimen / Unknown Venipuncture / Unknown 07/11/2024 6:21 AM EST 07/11/2024 6:42 AM EST Kwesi Guido MD LAB BLOOD ORDERABLES F inal Result [facility] [address] [place] [address], * Immunoglobulins IgG, IgA, IgM (07/11/2024 6:21 AM EST) Total IgG 1,090 549 - 1,584 mg/dL LAB CHEMISTRY METHOD 07/11/2024 7:29 AM [facility] IgA 172 61 - 348 mg/dL LAB CHEMISTRY METHOD 07/11/2024 7:29 AM [facility] IgM 38 23 - 259 mg/dL LAB CHEMISTRY METHOD 07/11/2024 7:29 AM EST [facility] Blood Venous blood specimen / Unknown Venipuncture / Unknown 07/11/2024 6:21 AM EST 07/11/2024 6:42 AM EST us Chencho Wayne MD LAB BLOOD ORDERABLES Final Resu lt [facility] [address] [place] [address], [place] [phone] * Immunofixation electrophoresis serum (07/11/2024 6:21 AM EST) [facility] [address] Immunofixation Result, Serum Faint restriction of IgG Zayante, not observed on SPEP . Follow-up in 6 months if clinically indicated. LAB CHEMISTRY METHOD 07/13/2024 4:13 PM EST [facility] Blood Venous blood specimen / Unknown Venipuncture / Unknown 07/11/2024 6:21 AM EST 07/11/2024 6:43 AM EST us Chencho Wayne MD LAB BLOOD ORDERABLES Final Resu lt Performing Organization Address City/[facility]/ZIP Co de Phone Number [facility] [address] [place] [address], [place] [phone] * (ABNORMAL) CBC auto differential (07/11/2024 6:21 AM EST) [facility] [address] WBC 18.4(H) 4.8 - 10.8 K/mcL LAB HEMETOLOGY METHOD 07/11/2024 6:52 AM [facility] RBC 3.20(L) 3.80 - 4.80 M/mcL LAB HEMETOLOGY METHOD 07/11/2024 6:52 AM [facility] Hemoglobin 7.4(L) 11.5 - 16.0 g/dL LAB HEMETOLOGY METHOD 07/11/2024 6:52 AM [facility] Hematocrit 23.7(L) 35.0 - 47.0 % LAB HEMETOLOGY METHOD 07/11/2024 6:52 AM [facility] MCV 75.0(L) 79.0 - 98.0 FL LAB HEMETOLOGY METHOD 07/11/2024 6:52 AM [facility] MCH 23.4(L) 27.0 - 32.0 pcg LAB HEMETOLOGY METHOD 07/11/2024 6:52 AM [facility] MCHC 31.2(L) 32.0 - 37.0 g/dL LAB HEMETOLOGY METHOD 07/11/2024 6:52 AM [facility] RDW 20.2(H) 11.0 - 15.0 % LAB HEMETOLOGY METHOD 07/11/2024 6:52 AM [facility] Platelets 211 130 - 400 K/mcL LAB HEMETOLOGY METHOD 07/11/2024 6:52 AM [facility] MPV 9.1 7.0 - 11.0 FL LAB HEMETOLOGY METHOD 07/11/2024 6:52 AM [facility] NRBC 0.0 <1.0 % LAB HEMETOLOGY METHOD 07/11/2024 6:52 AM [facility] NRBC Absolute 0.00 <0.10 K/mcL LAB HEMETOLOGY METHOD 07/11/2024 6:52 AM [facility] Neutrophils Relative 86.2 % LAB HEMETOLOGY METHOD 07/11/2024 6:52 AM [facility] Lymphocytes Relative 3.0 % LAB HEMETOLOGY METHOD 07/11/2024 6:52 AM [facility] Monocytes Relative 5.9 % LAB HEMETOLOGY METHOD 07/11/2024 6:52 AM [facility] Eosinophils Relative 3.3 % LAB HEMETOLOGY METHOD 07/11/2024 6:52 AM [facility] Basophils Relative 0.2 % LAB HEMETOLOGY METHOD 07/11/2024 6:52 AM EST [facility] Immature Granulocytes Relative 1.4 % LAB HEMETOLOGY METHOD 07/11/2024 6:52 AM [facility] Neutrophils Absolute 15.84(H) 1.50 - 7.00 K/mcL LAB HEMETOLOGY METHOD 07/11/2024 6:52 AM EST [facility] Lymphocytes Absolute 0.56(L) 1.00 - 5.00 K/mcL LAB HEMETOLOGY METHOD 07/11/2024 6:52 AM [facility] Monocytes Absolute 1.09(H) 0.20 - 1.00 K/mcL LAB HEMETOLOGY METHOD 07/11/2024 6:52 AM [facility] Eosinophils Absolute 0.61(H) 0.00 - 0.50 K/mcL LAB HEMETOLOGY METHOD 07/11/2024 6:52 AM EST [facility] Basophils Absolute 0.04 0.00 - 0.20 K/mcL LAB HEMETOLOGY METHOD 07/11/2024 6:52 AM [facility] Immature Granulocytes Absolute 0.26(H) 0.00 - 0.03 K/mcL LAB HEMETOLOGY METHOD 07/11/2024 6:52 AM [facility] Blood Venous blood specimen / Unknown Venipuncture / Unknown 07/11/2024 6:21 AM EST 07/11/2024 6:41 AM EST us Maria Alejandra Melendez MD LAB BLOOD ORDERABLES Final Res ult [facility] [address] [place] [address], * (ABNORMAL) Basic metabolic panel (07/11/2024 6:21 AM EST) Sodium 130(L) 133 - 145 mmol/L LAB CHEMISTRY METHOD 07/11/2024 7:27 AM [facility] Potassium 3.7 3.5 - 5.5 mmol/L LAB CHEMISTRY METHOD 07/11/2024 7:27 AM [facility] Chloride 102 96 - 110 mmol/L LAB CHEMISTRY METHOD 07/11/2024 7:27 AM [facility] CO2 19(L) 21 - 32 mmol/L LAB CHEMISTRY METHOD 07/11/2024 7:27 AM [facility] Anion Gap 9 3 - 11 LAB CHEMISTRY METHOD 07/11/2024 7:27 AM [facility] Glucose 174(H) 70 - 100 mg/dL LAB CHEMISTRY METHOD 07/11/2024 7:27 AM [facility] BUN 69(H) 5 - 25 mg/dL LAB CHEMISTRY METHOD 07/11/2024 7:27 AM [facility] Creatinine 4.36(H) 0.50 - 1.10 mg/dL LAB CHEMISTRY METHOD 07/11/2024 7:27 AM [facility] eGFR 10(L) >=60 mL/min/1. 73m2 LAB CHEMISTRY METHOD 07/11/2024 7:27 AM [facility] Comment:Calculation based on the??Chronic Kidney Disease Epidemiology Collaboration (CKD-EPI) equation refit??without adjustment for race. BUN/Creatinine Ratio 15.8 LAB CHEMISTRY METHOD 07/11/2024 7:27 AM [facility] Calcium 8.2(L) 8.5 - 10.5 mg/dL LAB CHEMISTRY METHOD 07/11/2024 7:27 AM [facility] Blood Venous blood specimen / Unknown Venipuncture / Unknown 07/11/2024 6:21 AM EST 07/11/2024 6:42 AM EST us Maria Alejandra Melendez MD LAB BLOOD ORDERABLES Final Res ult [facility] [address] [place] [address], [place] [phone] * (ABNORMAL) POCT Glucose, blood (07/10/2024 8:33 PM EST) Glucose POCT 325(H) 70 - 100 mg/dL 07/10/2024 8:34 PM EST [facility] Blood Capillary blood specimen / Unknown 07/10/2024 8:33 PM EST 07/10/2024 8:35 PM EST Maria Alejandra Melendez MD LAB POINT OF CARE TE ST DOCKED DEVICE UNSOLICITED RESULTS Final Result [facility] [address] [place] [address], [place] [phone] * (ABNORMAL) POCT Glucose, blood (07/10/2024 4:11 PM EST) Glucose POCT 287(H) 70 - 100 mg/dL 07/10/2024 4:12 PM EST [facility] Blood Capillary blood specimen / Unknown 07/10/2024 4:11 PM EST 07/10/2024 4:13 PM EST us Maria Alejandra Melendez MD LAB POINT OF CARE TE ST DOCKED DEVICE UNSOLICITED RESULTS Final Result [facility] [address] [place] [address], [place] [phone] * (ABNORMAL) POCT Glucose, blood (07/10/2024 11:29 AM EST) Glucose POCT 214(H) 70 - 100 mg/dL 07/10/2024 11:45 AM EST [facility] Blood Capillary blood specimen / Unknown 07/10/2024 11:29 AM EST 07/10/2024 11:47 AM EST Maria Alejandra Melendez MD LAB POINT OF CARE TE ST DOCKED DEVICE UNSOLICITED RESULTS Final Result Performing Organization Address [facility]/ZIP Co de Phone Number [facility] [address] [place] [address], [place] [phone] * (ABNORMAL) POCT Glucose, blood (07/10/2024 8:40 AM EST) [facility] [address] Glucose POCT 164(H) 70 - 100 mg/dL 07/10/2024 8:42 AM EST [facility] Blood Capillary blood specimen / Unknown 07/10/2024 8:40 AM EST 07/10/2024 8:43 AM EST us Maria Alejandra Melendez MD LAB POINT OF CARE TE ST DOCKED DEVICE UNSOLICITED RESULTS Final Result Performing Organization Address [facility] Co de Phone Number [facility] [address] [place] [address], [place] [phone] * (ABNORMAL) Triiodothyronine free (07/10/2024 5:16 AM EST) [facility] [address] T3, Free 154(L) 230 - 420 pcg/dL LAB CHEMISTRY METHOD 07/10/2024 2:10 PM EST [facility] Blood Venous blood specimen / Unknown Venipuncture / Unknown 07/10/2024 5:16 AM EST 07/10/2024 6:42 AM EST us Maria Alejandra Melendez MD LAB BLOOD ORDERABLES Final Res ult Performing Organization Address [facility]/ZIP Co de Phone Number [facility] [address] [place] [address], [place] [phone] * Thyroxine free (07/10/2024 5:16 AM EST) Free T4 0.92 0.70 - 1.80 ng/dL LAB CHEMISTRY METHOD 07/10/2024 2:04 PM EST [facility] Blood Venous blood specimen / Unknown Venipuncture / Unknown 07/10/2024 5:16 AM EST 07/10/2024 6:42 AM EST us Maria Alejandra Melendez MD LAB BLOOD ORDERABLES Final Res ult Performing Organization Address [facility]/ZIP Co de Phone Number [facility] [address] [place] [address], [place] [phone] * (ABNORMAL) Parathyroid hormone intact (07/10/2024 5:16 AM EST) Pathologist [facility] PTH 10.5(L) 18.5 - 88.0 pcg/mL LAB CHEMISTRY METHOD 07/10/2024 1:47 PM EST [facility] Blood Venous blood specimen / Unknown Venipuncture / Unknown 07/10/2024 5:16 AM EST 07/10/2024 6:42 AM EST us Maria Alejandra Melendez MD LAB BLOOD ORDERABLES Final Res ult Performing Organization Address [facility] Co de Phone Number [facility] [address] [place] [address], [place] [phone] * (ABNORMAL) CBC auto differential (07/10/2024 5:16 AM EST) WBC 16.9(H) 4.8 - 10.8 K/mcL LAB HEMETOLOGY METHOD 07/10/2024 7:29 AM EST [facility] RBC 3.30(L) 3.80 - 4.80 M/mcL LAB HEMETOLOGY METHOD 07/10/2024 7:29 AM EST [facility] Hemoglobin 7.6(L) 11.5 - 16.0 g/dL LAB HEMETOLOGY METHOD 07/10/2024 7:29 AM EST [facility] Hematocrit 24.4(L) 35.0 - 47.0 % LAB HEMETOLOGY METHOD 07/10/2024 7:29 AM [facility] MCV 74.4(L) 79.0 - 98.0 FL LAB HEMETOLOGY METHOD 07/10/2024 7:29 AM [facility] MCH 23.2(L) 27.0 - 32.0 pcg LAB HEMETOLOGY METHOD 07/10/2024 7:29 AM [facility] MCHC 31.1(L) 32.0 - 37.0 g/dL LAB HEMETOLOGY METHOD 07/10/2024 7:29 AM [facility] RDW 19.8(H) 11.0 - 15.0 % LAB HEMETOLOGY METHOD 07/10/2024 7:29 AM [facility] Platelets 277 130 - 400 K/mcL LAB HEMETOLOGY METHOD 07/10/2024 7:29 AM [facility] MPV 9.1 7.0 - 11.0 FL LAB HEMETOLOGY METHOD 07/10/2024 7:29 AM [facility] NRBC 0.0 <1.0 % LAB HEMETOLOGY METHOD 07/10/2024 7:29 AM [facility] NRBC Absolute 0.00 <0.10 K/mcL LAB HEMETOLOGY METHOD 07/10/2024 7:29 AM [facility] Neutrophils Relative 86.9 % LAB HEMETOLOGY METHOD 07/10/2024 7:29 AM [facility] Lymphocytes Relative 3.2 % LAB HEMETOLOGY METHOD 07/10/2024 7:29 AM [facility] Monocytes Relative 5.9 % LAB HEMETOLOGY METHOD 07/10/2024 7:29 AM [facility] Eosinophils Relative 2.8 % LAB HEMETOLOGY METHOD 07/10/2024 7:29 AM EST [facility] Basophils Relative 0.2 % LAB HEMETOLOGY METHOD 07/10/2024 7:29 AM EST [facility] Immature Granulocytes Relative 1.0 % LAB HEMETOLOGY METHOD 07/10/2024 7:29 AM [facility] Neutrophils Absolute 14.72(H) 1.50 - 7.00 K/mcL LAB HEMETOLOGY METHOD 07/10/2024 7:29 AM EST [facility] Lymphocytes Absolute 0.54(L) 1.00 - 5.00 K/mcL LAB HEMETOLOGY METHOD 07/10/2024 7:29 AM [facility] Monocytes Absolute 1.00 0.20 - 1.00 K/mcL LAB HEMETOLOGY METHOD 07/10/2024 7:29 AM [facility] Eosinophils Absolute 0.47 0.00 - 0.50 K/mcL LAB HEMETOLOGY METHOD 07/10/2024 7:29 AM EST [facility] Basophils Absolute 0.04 0.00 - 0.20 K/mcL LAB HEMETOLOGY METHOD 07/10/2024 7:29 AM EST [facility] Immature Granulocytes Absolute 0.17(H) 0.00 - 0.03 K/mcL LAB HEMETOLOGY METHOD 07/10/2024 7:29 AM [facility] Blood Venous blood specimen / Unknown Venipuncture / Unknown 07/10/2024 5:16 AM EST 07/10/2024 6:43 AM EST us Maria Alejandra Melendez MD LAB BLOOD ORDERABLES Final Res ult [facility] [address] [place] [address], * (ABNORMAL) Magnesium (07/10/2024 5:16 AM EST) Magnesium 1.8(L) 1.9 - 2.6 mg/dL LAB CHEMISTRY METHOD 07/10/2024 7:38 AM [facility] Blood Venous blood specimen / Unknown Venipuncture / Unknown 07/10/2024 5:16 AM EST 07/10/2024 6:42 AM EST us Maria Alejandra Melendez MD LAB BLOOD ORDERABLES Final Res ult [facility] [address] [place] [address], [place] [phone] * (ABNORMAL) Basic metabolic panel (07/10/2024 5:16 AM EST) Sodium 133 133 - 145 mmol/L LAB CHEMISTRY METHOD 07/10/2024 7:39 AM [facility] Potassium 3.8 3.5 - 5.5 mmol/L LAB CHEMISTRY METHOD 07/10/2024 7:39 AM [facility] Chloride 105 96 - 110 mmol/L LAB CHEMISTRY METHOD 07/10/2024 7:39 AM [facility] CO2 20(L) 21 - 32 mmol/L LAB CHEMISTRY METHOD 07/10/2024 7:39 AM [facility] Anion Gap 8 3 - 11 LAB CHEMISTRY METHOD 07/10/2024 7:39 AM [facility] Glucose 167(H) 70 - 100 mg/dL LAB CHEMISTRY METHOD 07/10/2024 7:39 AM [facility] BUN 65(H) 5 - 25 mg/dL LAB CHEMISTRY METHOD 07/10/2024 7:39 AM [facility] Creatinine 4.19(H) 0.50 - 1.10 mg/dL LAB CHEMISTRY METHOD 07/10/2024 7:39 AM [facility] eGFR 10(L) >=60 mL/min/1. 73m2 LAB CHEMISTRY METHOD 07/10/2024 7:39 AM EST [facility] Comment:Calculation based on the??Chronic Kidney Disease Epidemiology Collaboration (CKD-EPI) equation refit??without adjustment for race. BUN/Creatinine Ratio 15.5 LAB CHEMISTRY METHOD 07/10/2024 7:39 AM [facility] Calcium 8.5 8.5 - 10.5 mg/dL LAB CHEMISTRY METHOD 07/10/2024 7:39 AM [facility] Blood Venous blood specimen / Unknown Venipuncture / Unknown 07/10/2024 5:16 AM EST 07/10/2024 6:42 AM EST Maria Alejandra Melendez MD LAB BLOOD ORDERABLES Final Res ult Performing Organization Address [facility]/ZIP Co de Phone Number [facility] [address] [place] [address], [place] [phone] * (ABNORMAL) POCT Glucose, blood (07/09/2024 7:52 PM EST) Glucose POCT 243(H) 70 - 100 mg/dL 07/09/2024 7:53 PM EST [facility] Blood Capillary blood specimen / Unknown 07/09/2024 7:52 PM EST 07/09/2024 7:54 PM EST Maria Alejandra Melendez MD LAB POINT OF CARE TE ST DOCKED DEVICE UNSOLICITED RESULTS Final Result [facility] [address] [place] [address], [place] [phone] * (ABNORMAL) POCT Glucose, blood (07/09/2024 4:27 PM EST) Glucose POCT 264(H) 70 - 100 mg/dL 07/09/2024 4:28 PM EST [facility] Blood Capillary blood specimen / Unknown 07/09/2024 4:27 PM EST 07/09/2024 4:29 PM EST us Maria Alejandra Melendez MD LAB POINT OF CARE TE ST DOCKED DEVICE UNSOLICITED RESULTS Final Result Performing Organization Address [facility] Co de Phone Number [facility] [address] [place] [address], [place] [phone] * (ABNORMAL) POCT Glucose, blood (07/09/2024 11:33 AM EST) Glucose POCT 179(H) 70 - 100 mg/dL 07/09/2024 11:34 AM EST [facility] Blood Capillary blood specimen / Unknown 07/09/2024 11:33 AM EST 07/09/2024 11:35 AM EST us Maria Alejandra Melendez MD LAB POINT OF CARE TE ST DOCKED DEVICE UNSOLICITED RESULTS Final Result Performing Organization Address [facility] Co de Phone Number [facility] [address] [place] [address], [place] [phone] * (ABNORMAL) POCT Glucose, blood (07/09/2024 8:59 AM EST) [facility] [address] Glucose POCT 175(H) 70 - 100 mg/dL 07/09/2024 9:06 AM EST [facility] Blood Capillary blood specimen / Unknown 07/09/2024 8:59 AM EST 07/09/2024 9:08 AM EST us Maria Alejandra Melendez MD LAB POINT OF CARE TE ST DOCKED DEVICE UNSOLICITED RESULTS Final Result Performing Organization Address [facility]/ZIP Co de Phone Number [facility] [address] [place] [address], [place] [phone] * (ABNORMAL) CBC auto differential (07/09/2024 6:25 AM EST) Pathologist [facility] WBC 18.4(H) 4.8 - 10.8 K/mcL LAB HEMETOLOGY METHOD 07/09/2024 8:05 AM [facility] RBC 3.50(L) 3.80 - 4.80 M/mcL LAB HEMETOLOGY METHOD 07/09/2024 8:05 AM [facility] Hemoglobin 8.3(L) 11.5 - 16.0 g/dL LAB HEMETOLOGY METHOD 07/09/2024 8:05 AM [facility] Hematocrit 26.1(L) 35.0 - 47.0 % LAB HEMETOLOGY METHOD 07/09/2024 8:05 AM [facility] MCV 74.4(L) 79.0 - 98.0 FL LAB HEMETOLOGY METHOD 07/09/2024 8:05 AM [facility] MCH 23.6(L) 27.0 - 32.0 pcg LAB HEMETOLOGY METHOD 07/09/2024 8:05 AM [facility] MCHC 31.8(L) 32.0 - 37.0 g/dL LAB HEMETOLOGY METHOD 07/09/2024 8:05 AM [facility] RDW 19.2(H) 11.0 - 15.0 % LAB HEMETOLOGY METHOD 07/09/2024 8:05 AM [facility] Platelets 333 130 - 400 K/mcL LAB HEMETOLOGY METHOD 07/09/2024 8:05 AM [facility] MPV 9.1 7.0 - 11.0 FL LAB HEMETOLOGY METHOD 07/09/2024 8:05 AM [facility] NRBC 0.0 <1.0 % LAB HEMETOLOGY METHOD 07/09/2024 8:05 AM [facility] NRBC Absolute 0.00 <0.10 K/mcL LAB HEMETOLOGY METHOD 07/09/2024 8:05 AM [facility] Neutrophils Relative 89.0 % LAB HEMETOLOGY METHOD 07/09/2024 8:05 AM [facility] Lymphocytes Relative 2.8 % LAB HEMETOLOGY METHOD 07/09/2024 8:05 AM [facility] Monocytes Relative 6.1 % LAB HEMETOLOGY METHOD 07/09/2024 8:05 AM [facility] Eosinophils Relative 1.1 % LAB HEMETOLOGY METHOD 07/09/2024 8:05 AM [facility] Basophils Relative 0.2 % LAB HEMETOLOGY METHOD 07/09/2024 8:05 AM [facility] Immature Granulocytes Relative 0.8 % LAB HEMETOLOGY METHOD 07/09/2024 8:05 AM [facility] Neutrophils Absolute 16.38(H) 1.50 - 7.00 K/mcL LAB HEMETOLOGY METHOD 07/09/2024 8:05 AM [facility] Lymphocytes Absolute 0.52(L) 1.00 - 5.00 K/mcL LAB HEMETOLOGY METHOD 07/09/2024 8:05 AM [facility] Monocytes Absolute 1.13(H) 0.20 - 1.00 K/mcL LAB HEMETOLOGY METHOD 07/09/2024 8:05 AM [facility] Eosinophils Absolute 0.21 0.00 - 0.50 K/mcL LAB HEMETOLOGY METHOD 07/09/2024 8:05 AM [facility] Basophils Absolute 0.03 0.00 - 0.20 K/mcL LAB HEMETOLOGY METHOD 07/09/2024 8:05 AM [facility] Immature Granulocytes Absolute 0.14(H) 0.00 - 0.03 K/mcL LAB HEMETOLOGY METHOD 07/09/2024 8:05 AM [facility] Blood Venous blood specimen / Unknown Venipuncture / Unknown 07/09/2024 6:25 AM EST 07/09/2024 7:11 AM EST Aye HEDRICK LAB BLOOD ORDERABLES Final Re sult Performing Organization Address [facility]/ZIP Co de Phone Number [facility] [address] [place] [address], [place] [phone] * Creatine kinase (07/09/2024 6:25 AM EST) [facility] [address] Total CK 172 22 - 269 unit/L LAB CHEMISTRY METHOD 07/09/2024 8:11 AM EST [facility] Blood Venous blood specimen / Unknown Venipuncture / Unknown 07/09/2024 6:25 AM EST 07/09/2024 7:11 AM EST Aye HEDR[facility] LAB BLOOD ORDERABLES Final Re sult Performing Organization Address [facility]/ZIP Co de Phone Number [facility] [address] [place] [address], [place] [phone] * (ABNORMAL) Calcium, ionized (07/09/2024 6:25 AM EST) [facility] [address] Calcium Ionized 5.66(H) 4.50 - 5.30 mg/dL 07/09/2024 7:23 AM EST [facility] Blood Venous blood specimen / Unknown Venipuncture / Unknown 07/09/2024 6:25 AM EST 07/09/2024 7:11 AM EST Aye [facility] LAB BLOOD ORDERABLES Final Re sult Performing Organization Address [facility]/ZIP Co de Phone Number [facility] [address] [place] [address], [place] [phone] * Magnesium (07/09/2024 6:25 AM EST) [facility] [address] [facility] Magnesium 2.0 1.9 - 2.6 mg/dL LAB CHEMISTRY METHOD 07/09/2024 8:11 AM [facility] Blood Venous blood specimen / Unknown Venipuncture / Unknown 07/09/2024 6:25 AM EST 07/09/2024 7:11 AM EST us Aye HEDRICK LAB BLOOD ORDERABLES Final Re sult [facility] [address] [place] [address], [place] [phone] * (ABNORMAL) Basic metabolic panel (07/09/2024 6:25 AM EST) [facility] [address] Sodium 131(L) 133 - 145 mmol/L LAB CHEMISTRY METHOD 07/09/2024 8:12 AM [facility] Potassium 3.8 3.5 - 5.5 mmol/L LAB CHEMISTRY METHOD 07/09/2024 8:12 AM [facility] Chloride 101 96 - 110 mmol/L LAB CHEMISTRY METHOD 07/09/2024 8:12 AM [facility] CO2 21 21 - 32 mmol/L LAB CHEMISTRY METHOD 07/09/2024 8:12 AM [facility] Anion Gap 9 3 - 11 LAB CHEMISTRY METHOD 07/09/2024 8:12 AM [facility] Glucose 170(H) 70 - 100 mg/dL LAB CHEMISTRY METHOD 07/09/2024 8:12 AM [facility] BUN 63(H) 5 - 25 mg/dL LAB CHEMISTRY METHOD 07/09/2024 8:12 AM [facility] Creatinine 4.07(H) 0.50 - 1.10 mg/dL LAB CHEMISTRY METHOD 07/09/2024 8:12 AM [facility] eGFR 11(L) >=60 mL/min/1. 73m2 LAB CHEMISTRY METHOD 07/09/2024 8:12 AM EST [facility] Comment:Calculation based on the??Chronic Kidney Disease Epidemiology Collaboration (CKD-EPI) equation refit??without adjustment for race. BUN/Creatinine Ratio 15.5 LAB CHEMISTRY METHOD 07/09/2024 8:12 AM EST [facility] Calcium 9.5 8.5 - 10.5 mg/dL LAB CHEMISTRY METHOD 07/09/2024 8:12 AM EST [facility] Blood Venous blood specimen / Unknown Venipuncture / Unknown 07/09/2024 6:25 AM EST 07/09/2024 7:11 AM EST us Aye HEDRICK LAB BLOOD ORDERABLES Final Re sult [facility] [address] [place] [address], * XR Chest 1 View (07/08/2024 10:00 [...] Signed Date: 07/09/2024 09:03 ET Workstation ID: [id number] Transcribed By: Self Edit Transcribed Date: 07/09/2024 [...] Signed Date: 07/09/2024 09:03 ET Workstation ID: [id number] Transcribed By: Self Edit Transcribed Date: 07/09/2024 09:02 ET Aye H[facility] IMG XR PROCEDURES Final Resul t * Green LI heparin tube (07/08/2024 9:50 PM EST) Extra Tube Hold for add-ons. 07/09/2024 12:01 AM EST [facility] Comment:Auto resulted. Blood Venous blood specimen / Unknown 07/08/2024 9:50 PM EST 07/08/2024 10:41 PM EST Wayne Donahue MD LAB BLOOD ORDERABLES Final Re sult [facility] [address] [place] [address], [place] [phone] * Culture blood (07/08/2024 9:49 PM EST) Culture, Blood No growth at 5 days 07/13/2024 10:01 PM EST [facility] Blood Venous blood specimen / Unknown Venipuncture / Unknown 07/08/2024 9:49 PM EST 07/08/2024 9:54 PM EST Aye [facility] LAB MICROBIOLOGY - GENERAL OR DERABLES Final Result [facility] [address] [place] [address], [place] [phone] * Lactate (07/08/2024 9:42 PM EST) Lactate 1.3 mmol/L 07/08/2024 10:30 PM EST [facility] Blood Venous blood specimen / Unknown Venipuncture / Unknown 07/08/2024 9:42 PM EST 07/08/2024 9:54 PM EST Aye H[facility] LAB BLOOD ORDERABLES Final Re sult [facility] [address] [place] [address], [place] [phone] * Culture blood (07/08/2024 9:37 PM EST) Culture, Blood No growth at 5 days 07/13/2024 10:01 PM EST [facility] Blood Venous blood specimen / Unknown Venipuncture / Unknown 07/08/2024 9:37 PM EST 07/08/2024 9:56 PM EST Aye [facility] LAB MICROBIOLOGY - GENERAL OR DERABLES Final Result Performing Organization Address [facility]/ZIP Co de Phone Number [facility] [address] [place] [address], [place] [phone] * (ABNORMAL) POCT Glucose, blood (07/08/2024 8:46 PM EST) Glucose POCT 264(H) 70 - 100 mg/dL 07/08/2024 8:46 PM EST [facility] Blood Capillary blood specimen / Unknown 07/08/2024 8:46 PM EST 07/08/2024 8:47 PM EST Wayne Donahue MD LAB POINT OF CARE TE ST DOCKED DEVICE UNSOLICITED RESULTS Final Result [facility] [address] [place] [address], [place] [phone] * (ABNORMAL) Basic metabolic panel (07/08/2024 8:30 PM EST) Sodium 130(L) 133 - 145 mmol/L LAB CHEMISTRY METHOD 07/08/2024 11:37 PM EST [facility] Potassium 4.0 3.5 - 5.5 mmol/L LAB CHEMISTRY METHOD 07/08/2024 11:37 PM [facility] Chloride 98 96 - 110 mmol/L LAB CHEMISTRY METHOD 07/08/2024 11:37 PM [facility] CO2 22 21 - 32 mmol/L LAB CHEMISTRY METHOD 07/08/2024 11:37 PM [facility] Anion Gap 10 3 - 11 LAB CHEMISTRY METHOD 07/08/2024 11:37 PM [facility] Glucose 261(H) 70 - 100 mg/dL LAB CHEMISTRY METHOD 07/08/2024 11:37 PM [facility] BUN 64(H) 5 - 25 mg/dL LAB CHEMISTRY METHOD 07/08/2024 11:37 PM [facility] Creatinine 4.32(H) 0.50 - 1.10 mg/dL LAB CHEMISTRY METHOD 07/08/2024 11:37 PM [facility] eGFR 10(L) >=60 mL/min/1. 73m2 LAB CHEMISTRY METHOD 07/08/2024 11:37 PM [facility] Comment:Calculation based on the??Chronic Kidney Disease Epidemiology Collaboration (CKD-EPI) equation refit??without adjustment for race. BUN/Creatinine Ratio 14.8 LAB CHEMISTRY METHOD 07/08/2024 11:37 PM [facility] Calcium 10.3 8.5 - 10.5 mg/dL LAB CHEMISTRY METHOD 07/08/2024 11:37 PM EST [facility] Blood Venous blood specimen / Unknown Venipuncture / Unknown 07/08/2024 8:30 PM EST 07/08/2024 8:37 PM EST us Aye HEDRICK LAB BLOOD ORDERABLES Final Re sult [facility] [address] [place] [address], * (ABNORMAL) Complete blood count (07/08/2024 8:30 PM EST) WBC 20.5(H) 4.8 - 10.8 K/mcL LAB HEMETOLOGY METHOD 07/08/2024 8:56 PM [facility] RBC 4.00 3.80 - 4.80 M/mcL LAB HEMETOLOGY METHOD 07/08/2024 8:56 PM [facility] Hemoglobin 9.2(L) 11.5 - 16.0 g/dL LAB HEMETOLOGY METHOD 07/08/2024 8:56 PM [facility] Hematocrit 30.0(L) 35.0 - 47.0 % LAB HEMETOLOGY METHOD 07/08/2024 8:56 PM [facility] MCV 75.8(L) 79.0 - 98.0 FL LAB HEMETOLOGY METHOD 07/08/2024 8:56 PM [facility] MCH 23.2(L) 27.0 - 32.0 pcg LAB HEMETOLOGY METHOD 07/08/2024 8:56 PM [facility] MCHC 30.7(L) 32.0 - 37.0 g/dL LAB HEMETOLOGY METHOD 07/08/2024 8:56 PM [facility] RDW 19.9(H) 11.0 - 15.0 % LAB HEMETOLOGY METHOD 07/08/2024 8:56 PM [facility] Platelets 332 130 - 400 K/mcL LAB HEMETOLOGY METHOD 07/08/2024 8:56 PM EST [facility] MPV 8.6 7.0 - 11.0 FL LAB HEMETOLOGY METHOD 07/08/2024 8:56 PM EST [facility] NRBC 0.0 <1.0 % LAB HEMETOLOGY METHOD 07/08/2024 8:56 PM EST [facility] NRBC Absolute 0.00 <0.10 K/mcL LAB HEMETOLOGY METHOD 07/08/2024 8:56 PM EST [facility] Blood Venous blood specimen / Unknown Venipuncture / Unknown 07/08/2024 8:30 PM EST 07/08/2024 8:37 PM EST us Aye HEDRICK LAB BLOOD ORDERABLES Final Re sult [facility] [address] [place] [address], * (ABNORMAL) Electrolyte panel (07/08/2024 8:30 PM EST) Sodium 130(L) 133 - 145 mmol/L LAB CHEMISTRY METHOD 07/08/2024 11:37 PM [facility] Potassium 4.0 3.5 - 5.5 mmol/L LAB CHEMISTRY METHOD 07/08/2024 11:37 PM [facility] Chloride 98 96 - 110 mmol/L LAB CHEMISTRY METHOD 07/08/2024 11:37 PM [facility] CO2 22 21 - 32 mmol/L LAB CHEMISTRY METHOD 07/08/2024 11:37 PM [facility] Anion Gap 10 3 - 11 LAB CHEMISTRY METHOD 07/08/2024 11:37 PM [facility] Blood Venous blood specimen / Unknown Venipuncture / Unknown 07/08/2024 8:30 PM EST 07/08/2024 8:37 PM EST us Aye [facility] BLOOD ORDERABLES Final Re sult [facility] [address] [place] [address], [place] [phone] * Transfuse RBC (07/08/2024 6:45 PM EST) Raya [facility] BLOOD TRANSFUSION ORDE RABLES Final Result * Transfuse RBC: 1 Units (07/08/2024 6:45 PM EST) Raya [facility] BLOOD TRANSFUSION ORDE RABLES Final Result * (ABNORMAL) POCT Glucose, blood (07/08/2024 6:19 PM EST) Glucose POCT 276(H) 70 - 100 mg/dL 07/08/2024 6:19 PM EST [facility] Blood Capillary blood specimen / Unknown 07/08/2024 6:19 PM EST 07/08/2024 6:20 PM EST Wayne Donahue MD LAB POINT OF CARE TE ST DOCKED DEVICE UNSOLICITED RESULTS Final Result [facility] [address] [place] [address], [place] [phone] * PATHOLOGIST REVIEW PROTEIN ELECTROPHORESIS (07/08/2024 5:52 PM EST) Pathologist Interpretation Reviewed by Rosenda Galeana MD 07/14/2024 9:21 AM EST [facility] Blood Venous blood specimen / Unknown Venipuncture / Unknown 07/08/2024 5:52 PM EST 07/08/2024 6:00 PM EST Aye [facility] BLOOD ORDERABLES Final Re sult Performing Organization Address City/[facility]/ZIP Co de Phone Number [facility] [address] [place] [address], * Protein, total (07/08/2024 5:52 PM EST) Pathologist [facility] Total Protein 6.4 6.0 - 8.0 g/dL LAB CHEMISTRY METHOD 07/08/2024 6:30 PM EST [facility] Blood Venous blood specimen / Unknown Venipuncture / Unknown 07/08/2024 5:52 PM EST 07/08/2024 6:00 PM EST Aye [facility] BLOOD ORDERABLES Final Re sult Performing Organization Address [facility]/ZIP Co de Phone Number [facility] [address] [place] [address], [place] [phone] * (ABNORMAL) Basic metabolic panel (07/08/2024 5:52 PM EST) [facility] [address] Sodium 128(L) 133 - 145 mmol/L LAB CHEMISTRY METHOD 07/08/2024 6:50 PM [facility] Potassium 4.0 3.5 - 5.5 mmol/L LAB CHEMISTRY METHOD 07/08/2024 6:50 PM [facility] Chloride 96 96 - 110 mmol/L LAB CHEMISTRY METHOD 07/08/2024 6:50 PM [facility] CO2 25 21 - 32 mmol/L LAB CHEMISTRY METHOD 07/08/2024 6:50 PM [facility] Anion Gap 7 3 - 11 LAB CHEMISTRY METHOD 07/08/2024 6:50 PM [facility] Glucose 259(H) 70 - 100 mg/dL LAB CHEMISTRY METHOD 07/08/2024 6:50 PM [facility] BUN 67(H) 5 - 25 mg/dL LAB CHEMISTRY METHOD 07/08/2024 6:50 PM EST [facility] Creatinine 4.12(H) 0.50 - 1.10 mg/dL LAB CHEMISTRY METHOD 07/08/2024 6:50 PM [facility] eGFR 10(L) >=60 mL/min/1. 73m2 LAB CHEMISTRY METHOD 07/08/2024 6:50 PM [facility] Comment:Calculation based on the??Chronic Kidney Disease Epidemiology Collaboration (CKD-EPI) equation refit??without adjustment for race. BUN/Creatinine Ratio 16.3 LAB CHEMISTRY METHOD 07/08/2024 6:50 PM [facility] Calcium 10.8(H) 8.5 - 10.5 mg/dL LAB CHEMISTRY METHOD 07/08/2024 6:50 PM [facility] Blood Venous blood specimen / Unknown Venipuncture / Unknown 07/08/2024 5:52 PM EST 07/08/2024 6:00 PM EST Aye HEDRICK LAB BLOOD ORDERABLES Final Re sult Performing Organization Address [facility]/ZIP Co de Phone Number [facility] [address] [place] [address], [place] [phone] * (ABNORMAL) Serum albumin (07/08/2024 5:52 PM EST) Albumin 2.1(L) 3.2 - 5.0 g/dL LAB CHEMISTRY METHOD 07/08/2024 6:34 PM EST [facility] Blood Venous blood specimen / Unknown Venipuncture / Unknown 07/08/2024 5:52 PM EST 07/08/2024 6:00 PM EST Aye HEDRICK LAB BLOOD ORDERABLES Final Re sult [facility] [address] [place] [address], [place] [phone] * (ABNORMAL) Electrolyte panel (07/08/2024 5:52 PM EST) Sodium 128(L) 133 - 145 mmol/L LAB CHEMISTRY METHOD 07/08/2024 6:34 PM [facility] Potassium 4.0 3.5 - 5.5 mmol/L LAB CHEMISTRY METHOD 07/08/2024 6:34 PM [facility] Chloride 96 96 - 110 mmol/L LAB CHEMISTRY METHOD 07/08/2024 6:34 PM [facility] CO2 25 21 - 32 mmol/L LAB CHEMISTRY METHOD 07/08/2024 6:34 PM [facility] Anion Gap 7 3 - 11 LAB CHEMISTRY METHOD 07/08/2024 6:34 PM [facility] Blood Venous blood specimen / Unknown Venipuncture / Unknown 07/08/2024 5:52 PM EST 07/08/2024 6:00 PM EST us Aye HEDRICK LAB BLOOD ORDERABLES Final Re sult [facility] [address] [place] [address], * (ABNORMAL) Protein electrophoresis, serum (07/08/2024 5:52 PM EST) Total Protein 6.4 6.0 - 8.0 g/dL LAB CHEMISTRY METHOD 07/14/2024 9:21 AM [facility] Albumin, Serum 2.2(L) 2.9 - 4.1 g/dL LAB CHEMISTRY METHOD 07/14/2024 9:21 AM [facility] Alpha 1 Globulin (g/dL) 0.6(H) 0.1 - 0.5 g/dL LAB CHEMISTRY METHOD 07/14/2024 9:21 AM [facility] Alpha 2 Globulin (g/dL) 1.2 0.7 - 1.5 g/dL LAB CHEMISTRY METHOD 07/14/2024 9:21 AM [facility] Beta (g/dL) 1.0 0.7 - 1.5 g/dL LAB CHEMISTRY METHOD 07/14/2024 9:21 AM [facility] Gamma Globulin (g/dL) 1.5 0.7 - 1.9 g/dL LAB CHEMISTRY METHOD 07/14/2024 9:21 AM EST [facility] SPEP Interpretation Hypoalbuminem ia, suggestive of malnutrition, decreased hepatic synthesis or renal/GI loss Elevated alpha-1 fraction, suggestive of acute or or chronic inflammation. LAB CHEMISTRY METHOD 07/14/2024 9:21 AM EST [facility] Blood Venous blood specimen / Unknown Venipuncture / Unknown 07/08/2024 5:52 PM EST 07/08/2024 6:00 PM EST us Aye HEDRICK LAB BLOOD ORDERABLES Final Re sult [facility] [address] [place] [address], [place] [phone] * US Retroperitoneal Complete (07/08/2024 4:30 PM EST) Anatomical Region Laterality Modality Body Ultrasound 07/10/2024 2:07 PM EST Impressions 07/10/2024 2:08 PM EST Normal appearance of the kidneys. -------- FINAL REPORT -------- Dictated By: Primo Dee Dictated Date: 07/10/2024 14:07 ET Assigned Physician: Primo Dee Reviewed and Electronically Signed By: Primo Dee Signed Date: 07/10/2024 14:08 ET Workstation ID: [id number] Transcribed By: Self Edit Transcribed Date: 07/10/2024 [...] Signed Date: 07/10/2024 14:08 ET Workstation ID: [id number] Transcribed By: Self Edit Transcribed Date: 07/10/2024 14:07 ET us Aye HEDRICK IMG US PROCEDURES Final Resul t * Respiratory virus panel molecular study (07/08/2024 2:59 PM EST) Adenovirus Detection by PCR Not Detected Not Detected LAB MICROBIOLOGY METHOD 07/08/2024 4:18 PM EST [facility] Influenza A PCR Not Detected Not Detected LAB MICROBIOLOGY METHOD 07/08/2024 4:18 PM EST [facility] Influenza B PCR Not Detected Not Detected LAB MICROBIOLOGY METHOD 07/08/2024 4:18 PM EST [facility] Coronavirus 229E Not Detected Not Detected LAB MICROBIOLOGY METHOD 07/08/2024 4:18 PM EST [facility] Coronavirus HKU1 Not Detected Not Detected LAB MICROBIOLOGY METHOD 07/08/2024 4:18 PM [facility] Coronavirus OC43 Not Detected Not Detected LAB MICROBIOLOGY METHOD 07/08/2024 4:18 PM [facility] Coronavirus NL63 Not Detected Not Detected LAB MICROBIOLOGY METHOD 07/08/2024 4:18 PM [facility] Parainfluenza Virus 1 Not Detected Not Detected LAB MICROBIOLOGY METHOD 07/08/2024 4:18 PM [facility] Parainfluenza Virus 2 Not Detected Not Detected LAB MICROBIOLOGY METHOD 07/08/2024 4:18 PM [facility] Parainfluenza Virus 3 Not Detected Not Detected LAB MICROBIOLOGY METHOD 07/08/2024 4:18 PM [facility] Parainfluenza Virus 4 Not Detected Not Detected LAB MICROBIOLOGY METHOD 07/08/2024 4:18 PM [facility] RSV PCR Not Detected Not Detected LAB MICROBIOLOGY METHOD 07/08/2024 4:18 PM [facility] Human Metapneumovirus A and B Not Detected Not Detected LAB MICROBIOLOGY METHOD 07/08/2024 4:18 PM [facility] Rhinovirus/Entero virus Not Detected Not Detected LAB MICROBIOLOGY METHOD 07/08/2024 4:18 PM [facility] Bordetella pertussis Not Detected Not Detected LAB MICROBIOLOGY METHOD 07/08/2024 4:18 PM [facility] Bordetella parapertussis Not Detected Not Detected LAB MICROBIOLOGY METHOD 07/08/2024 4:18 PM [facility] Mycoplasma pneumo by PCR Not Detected Not Detected LAB MICROBIOLOGY METHOD 07/08/2024 4:18 PM [facility] Chlamydia pneumoniae Not Detected Not Detected LAB MICROBIOLOGY METHOD 07/08/2024 4:18 PM [facility] SARS COV-2 Not Detected Not Detected LAB MICROBIOLOGY METHOD 07/08/2024 4:18 PM [facility] Swab Both anterior nares / Unknown Non-blood Collection / Unknown 07/08/2024 2:59 PM EST 07/08/2024 3:15 PM EST Narrative [facility] 07/08/2024 4:18 PM EST Testing was performed using the [employer] Respiratory Pathogen PCR Assay. All results must [...] that are below the limit of detection. us Wayne Donahue MD LAB MICROBIOLOGY - GENERAL OR DERABLES Final Result [facility] [address] [place] [address], * XR Chest 2 Views (07/08/2024 2:01 PM EST) Anatomical Region Laterality Modality Body Radiographic Jennifer ging 07/08/2024 2:06 PM EST Impressions 07/08/2024 2:07 PM EST No acute findings. -------- FINAL REPORT -------- Dictated By: Henrique Bray Dictated Date: 07/08/2024 14:06 ET Assigned Physician: Henrique Bray Reviewed and Electronically Signed By: Henrique Bray Signed Date: 07/08/2024 14:07 ET Workstation ID: [id number] Transcribed By: Self Edit Transcribed Date: 07/08/2024 [...] Signed Date: 07/08/2024 14:07 ET Workstation ID: [id number] Transcribed By: Self Edit Transcribed Date: 07/08/2024 14:06 ET Jj Wolfe MD IMG XR PROCEDURES Final R esult * Type and screen (07/08/2024 1:18 PM EST) [facility] [address] ABO Group O 07/08/2024 2:42 PM EST [facility] Rh Type Positive 07/08/2024 2:42 PM EST [facility] Antibody Screen Negative 07/08/2024 2:42 PM EST [facility] Blood Venous blood specimen / Unknown Venipuncture / Unknown 07/08/2024 1:18 PM EST 07/08/2024 1:34 PM EST Raya HEDRICK LAB BLOOD BANK TEST OR DERABLES Final Result [facility] [address] [place] [address], * (ABNORMAL) Troponin I high sensitivity (07/08/2024 1:18 PM EST) Pathologist [facility] High Sensitivity Troponin I 81(H) <=54 ng/L LAB CHEMISTRY METHOD 07/08/2024 2:17 PM EST [facility] Blood Venous blood specimen / Unknown Venipuncture / Unknown 07/08/2024 1:18 PM EST 07/08/2024 1:34 PM EST Narrative [facility] - 07/08/2024 2:17 PM EST High levels of biotin in samples may falsely decrease hsTroponin values. ??Use caution when interpreting hsTroponin results in patients taking biotin who exhibit renal impairment (eGFR <60) or in patients taking more than 20 mg/day of biotin. Jj Wolfe MD LAB BLOOD ORDERABLES [place] dominguez Result [facility] [address] [place] [address], * Prepare RBC: 1 Units (07/08/2024 1:17 PM EST) Product Code [id number] 07/08/2024 4:13 PM [facility] Unit Number [id number] 07/08/19 4:13 PM [facility] Crossmatch Compatible 07/08/2024 2:53 PM [facility] Dispense Status Transfused 07/08/2024 4:13 PM [facility] Unit ABO Rh OPOS 07/08/2024 4:13 PM [facility] Unit Expiration Date Time [id number] 07/08/2024 4:13 PM [facility] Unit Blood Type 5100 07/08/2024 4:13 PM [facility] Blood Venous blood specimen / Unknown 07/08/2024 1:17 PM EST 06/17/2024 10:17 AM EST Raya HEDRICK BLOOD BANK PRODUCT ORD ERABLES Final Result Performing Organization Address [facility]/ZIP Co de Phone Number [facility] [address] [place] [address], [place] [phone] * Culture urine (07/08/2024 12:59 PM EST) Culture, Urine No growth 07/09/2024 10:44 AM EST [facility] Urine Urine specimen obtained by clean catch procedure / Unknown Non-blood Collection / Unknown 07/08/2024 12:59 PM EST 07/08/2024 1:21 PM EST Jj Wolfe MD LAB MICROBIOLOGY - GENERA L ORDERABLES Final Result Performing Organization Address [facility]/ZIP Co de Phone Number [facility] [address] [place] [address], [place] [phone] * Robertson urine culture tube (07/08/2024 12:59 PM EST) Pathologist [facility] Extra Tube Hold for add-ons. 07/08/2024 3:02 PM EST [facility] Comment:Auto resulted. Urine Urine specimen obtained by clean catch procedure / Unknown Non-blood Collection / Unknown 07/08/2024 12:59 PM EST 07/08/2024 1:11 PM EST Jj Wolfe MD LAB URINE ORDERABLES America l Result Performing Organization Address [facility]/ZIP Co de Phone Number [facility] [address] [place] [address], [place] [phone] * (ABNORMAL) Urinalysis with reflex microscopic and culture (07/08/2024 12:59 PM EST) Specific Linch Urine 1.020 1.003 - 1.030 LAB URINALYSIS - AUTOMATED METHOD 07/08/2024 1:21 PM [facility] pH, Urine 5.5 5.0 - 8.0 pH LAB URINALYSIS - AUTOMATED METHOD 07/08/2024 1:21 PM [facility] Leukocytes, Urine Negative Negative LAB URINALYSIS - AUTOMATED METHOD 07/08/2024 1:21 PM [facility] Nitrite, Urine Negative Negative LAB URINALYSIS - AUTOMATED METHOD 07/08/2024 1:21 PM [facility] Protein, Urine 100(A) <=Trace mg/dL LAB URINALYSIS - AUTOMATED METHOD 07/08/2024 1:21 PM [facility] Glucose, Urine 500(A) Negative mg/dL LAB URINALYSIS - AUTOMATED METHOD 07/08/2024 1:21 PM [facility] Ketones, Urine Negative Negative mg/dL LAB URINALYSIS - AUTOMATED METHOD 07/08/2024 1:21 PM [facility] Urobilinogen, Urine 0.2 0.2 - 1.0 mg/dL LAB URINALYSIS - AUTOMATED METHOD 07/08/2024 1:21 PM [facility] Bilirubin, Urine Negative Negative LAB URINALYSIS - AUTOMATED METHOD 07/08/2024 1:21 PM [facility] Blood, Urine Large(A) Negative LAB URINALYSIS - AUTOMATED METHOD 07/08/2024 1:21 PM [facility] RBC, Urine 21.6(H) 0 - 4 /HPF LAB URINALYSIS - AUTOMATED METHOD 07/08/2024 1:21 PM [facility] WBC, Urine 7.3(H) 0 - 4 /HPF LAB URINALYSIS - AUTOMATED METHOD 07/08/2024 1:21 PM [facility] Squamous Epithelial, Urine 30 0 - 60 /LPF LAB URINALYSIS - AUTOMATED METHOD 07/08/2024 1:21 PM [facility] Bacteria, Urine Negative Negative /HPF LAB URINALYSIS - AUTOMATED METHOD 07/08/2024 1:21 PM EST [facility] Hyaline Casts, Urine 1.7 0 - 3 /LPF LAB URINALYSIS - AUTOMATED METHOD 07/08/2024 1:21 PM EST [facility] Urine Urine specimen obtained by clean catch procedure / Unknown Non-blood Collection / Unknown 07/08/2024 12:59 PM EST 07/08/2024 1:11 PM EST us Jj Wolfe MD LAB URINE ORDERABLES [place] l Result [facility] [address] [place] [address], [place] [phone] * CT Head wo Contrast (07/08/2024 12:11 [...] Signed Date: 07/08/2024 12:23 ET Workstation ID: [id number] Transcribed By: Self Edit Transcribed Date: 07/08/2024 [...] Signed Date: 07/08/2024 12:23 ET Workstation ID: [id number] Transcribed By: Self Edit Transcribed Date: 07/08/2024 12:22 ET Raya HEDRICK An[facility] CT PROCEDURES [place] l Result * CT Cervical Spine wo Contrast (07/08/2024 12:11 PM EST) Anatomical Region Laterality Modality Spine, C-spine Computed Tomogra phy 07/08/2024 12:2 4 PM EST Impressions 07/08/2024 12:27 PM EST No acute cervical spine fracture. -------- FINAL REPORT -------- Dictated By: GELNNA SOLITARIO Dictated Date: 07/08/2024 12:24 ET Assigned Physician: GLENNA SOLITARIO Reviewed and Electronically Signed By: GLENNA SOLITARIO Signed Date: 07/08/2024 12:27 ET Workstation ID: [id number] Transcribed By: Self Edit Transcribed Date: 07/08/2024 [...] Signed Date: 07/08/2024 12:27 ET Workstation ID: [id number] Transcribed By: Self Edit Transcribed Date: 07/08/2024 12:24 ET Raya HEDRICK [place] CT PROCEDURES [place] l Result * (ABNORMAL) Creatine kinase and CKMB (07/08/2024 11:10 AM EST) Total CK 649(H) 22 - 269 unit/L LAB CHEMISTRY METHOD 07/08/2024 3:51 PM EST [facility] Comment:Hemolysis present CK-MB 13.1(H) 1.0 - 3.6 ng/mL LAB CHEMISTRY METHOD 07/08/2024 3:51 PM [facility] CK-MB Index 0.0 0.0 - 5.0 LAB CHEMISTRY METHOD 07/08/2024 3:51 PM [facility] Blood Venous blood specimen / Unknown Venipuncture / Unknown 07/08/2024 11:10 AM EST 07/08/2024 11:42 AM EST us Wayne Donahue MD LAB BLOOD ORDERABLES Final Re sult Performing Organization Address [facility]/ZIP Co de Phone Number [facility] [address] [place] [address], [place] [phone] * (ABNORMAL) Iron and TIBC (07/08/2024 11:10 AM EST) Iron 20(L) 40 - 150 mcg/dL LAB CHEMISTRY METHOD 07/08/2024 3:44 PM [facility] Comment:Hemolysis present TIBC 186(L) 250 - 450 mcg/dL LAB CHEMISTRY METHOD 07/08/2024 3:44 PM [facility] Iron Saturation 11(L) 15 - 50 % LAB CHEMISTRY METHOD 07/08/2024 3:44 PM [facility] Blood Venous blood specimen / Unknown Venipuncture / Unknown 07/08/2024 11:10 AM EST 07/08/2024 11:42 AM EST us Wayne Donahue MD LAB BLOOD ORDERABLES Final Re sult Performing Organization Address [facility]/ZIP Co de Phone Number [facility] [address] [place] [address], [place] [phone] * (ABNORMAL) Ferritin (07/08/2024 11:10 AM EST) Ferritin 708(H) 8 - 252 ng/mL LAB CHEMISTRY METHOD 07/08/2024 3:51 PM EST [facility] Blood Venous blood specimen / Unknown Venipuncture / Unknown 07/08/2024 11:10 AM EST 07/08/2024 11:42 AM EST us Wayne Donahue MD LAB BLOOD ORDERABLES Final Re sult Performing Organization Address City/[facility]/ZIP Co de Phone Number [facility] [address] [place] [address], [place] [phone] * (ABNORMAL) Reticulocyte count (07/08/2024 11:10 AM EST) [facility] [address] Retic Ct Abs 0.050 0.030 - 0.090 M/mcL LAB HEMETOLOGY METHOD 07/08/2024 2:52 PM [facility] Retic Ct Pct 1.4 0.7 - 1.7 % LAB HEMETOLOGY METHOD 07/08/2024 2:52 PM [facility] Immature Retic Fract 24.5(H) 2.3 - 15.9 % LAB HEMETOLOGY METHOD 07/08/2024 2:52 PM [facility] Reticulocyte Hemoglobin 22.5(L) >29.0 pcg LAB HEMETOLOGY METHOD 07/08/2024 2:52 PM [facility] Blood Venous blood specimen / Unknown Venipuncture / Unknown 07/08/2024 11:10 AM EST 07/08/2024 11:42 AM EST us Wayne Donahue MD LAB BLOOD ORDERABLES Final Re sult [facility] [address] [place] [address], [place] [phone] * (ABNORMAL) Haptoglobin (07/08/2024 11:10 AM EST) [facility] [address] Haptoglobin 570(H) 16 - 200 mg/dL LAB CHEMISTRY METHOD 07/08/2024 3:44 PM EST [facility] Blood Venous blood specimen / Unknown Venipuncture / Unknown 07/08/2024 11:10 AM EST 07/08/2024 11:42 AM EST us Wayne Donahue MD LAB BLOOD ORDERABLES Final Re sult Performing Organization Address [facility] de Phone Number [facility] [address] [place] [address], [place] [phone] * (ABNORMAL) Folate (07/08/2024 11:10 AM EST) [facility] [address] Folate >20.0(H) 2.8 - 17.0 ng/ml LAB CHEMISTRY METHOD 07/08/2024 3:51 PM EST [facility] Blood Venous blood specimen / Unknown Venipuncture / Unknown 07/08/2024 11:10 AM EST 07/08/2024 11:42 AM EST us Wayne Donahue MD LAB BLOOD ORDERABLES Final Re sult Performing Organization Address [facility] de Phone Number [facility] [address] [place] [address], [place] [phone] * Vitamin B12 (07/08/2024 11:10 AM EST) [facility] [address] Vitamin B-12 384 250 - 900 pcg/mL LAB CHEMISTRY METHOD 07/08/2024 3:51 PM EST [facility] Blood Venous blood specimen / Unknown Venipuncture / Unknown 07/08/2024 11:10 AM EST 07/08/2024 11:42 AM EST us Wayne Donahue MD LAB BLOOD ORDERABLES Final Re sult Performing Organization Address City/[facility]/ZIP Co de Phone Number [facility] [address] [place] [address], [place] [phone] * Cortisol (07/08/2024 11:10 AM EST) Cortisol 58.1 mcg/dL LAB CHEMISTRY METHOD 07/08/2024 3:38 PM EST [facility] Blood Venous blood specimen / Unknown Venipuncture / Unknown 07/08/2024 11:10 AM EST 07/08/2024 11:42 AM EST Narrative [facility] - 07/08/2024 3:38 PM EST CORTISOL REFERENCE RANGE ?? 8 AM SPEC: ??5.0-23.0 mcg/dL ?? 4 PM SPEC: ??3.0-16.0 mcg/dL ?? 8 PM SPEC: ??<5.0 mcg/dL us Wayne Donahue MD LAB BLOOD ORDERABLES Final Re sult Performing Organization Address City/[facility]/ZIP Co de Phone Number [facility] [address] [place] [address], [place] [phone] * (ABNORMAL) Thyroid stimulating hormone (07/08/2024 11:10 AM EST) [facility] [address] TSH 4.50(H) 0.40 - 4.00 mcIU/mL LAB CHEMISTRY METHOD 07/08/2024 3:31 PM EST [facility] Blood Venous blood specimen / Unknown Venipuncture / Unknown 07/08/2024 11:10 AM EST 07/08/2024 11:42 AM EST us Wayne Donahue MD LAB BLOOD ORDERABLES Final Re sult Performing Organization Address City/[facility]/ZIP Co de Phone Number [facility] [address] [place] [address], [place] [phone] * Uric acid (07/08/2024 11:10 AM EST) [facility] [address] Uric Acid 7.2 3.1 - 7.8 mg/dL LAB CHEMISTRY METHOD 07/08/2024 3:44 PM EST [facility] Blood Venous blood specimen / Unknown Venipuncture / Unknown 07/08/2024 11:10 AM EST 07/08/2024 11:42 AM EST us Wayne Donahue MD LAB BLOOD ORDERABLES Final Re sult Performing Organization Address [facility] de Phone Number [facility] [address] [place] [address], [place] [phone] * (ABNORMAL) Osmolality (07/08/2024 11:10 AM EST) Osmolality Iván 307(H) 280 - 300 mOsm/kg LAB CHEMISTRY METHOD 07/08/2024 6:51 PM EST [facility] Blood Venous blood specimen / Unknown Venipuncture / Unknown 07/08/2024 11:10 AM EST 07/08/2024 11:42 AM EST us Wayne Donahue MD LAB BLOOD ORDERABLES Final Re sult Performing Organization Address [facility] de Phone Number [facility] [address] [place] [address], [place] [phone] * (ABNORMAL) Parathyroid hormone intact (07/08/2024 11:10 AM EST) PTH 6.5(L) 18.5 - 88.0 pcg/mL LAB CHEMISTRY METHOD 07/08/2024 3:31 PM EST [facility] Blood Venous blood specimen / Unknown Venipuncture / Unknown 07/08/2024 11:10 AM EST 07/08/2024 11:42 AM EST us Wayne Donahue MD LAB BLOOD ORDERABLES Final Re sult Performing Organization Address City/[facility]/ZIP Co de Phone Number [facility] [address] [place] [address], * (ABNORMAL) CBC auto differential (07/08/2024 11:10 AM EST) [facility] [address] WBC 18.9(H) 4.8 - 10.8 K/mcL LAB HEMETOLOGY METHOD 07/08/2024 11:51 AM [facility] RBC 3.30(L) 3.80 - 4.80 M/mcL LAB HEMETOLOGY METHOD 07/08/2024 11:51 AM [facility] Hemoglobin 7.3(L) 11.5 - 16.0 g/dL LAB HEMETOLOGY METHOD 07/08/2024 11:51 AM [facility] Hematocrit 23.7(L) 35.0 - 47.0 % LAB HEMETOLOGY METHOD 07/08/2024 11:51 AM [facility] MCV 72.3(L) 79.0 - 98.0 FL LAB HEMETOLOGY METHOD 07/08/2024 11:51 AM [facility] MCH 22.3(L) 27.0 - 32.0 pcg LAB HEMETOLOGY METHOD 07/08/2024 11:51 AM [facility] MCHC 30.8(L) 32.0 - 37.0 g/dL LAB HEMETOLOGY METHOD 07/08/2024 11:51 AM [facility] RDW 16.4(H) 11.0 - 15.0 % LAB HEMETOLOGY METHOD 07/08/2024 11:51 AM [facility] Platelets 408(H) 130 - 400 K/mcL LAB HEMETOLOGY METHOD 07/08/2024 11:51 AM [facility] MPV 8.9 7.0 - 11.0 FL LAB HEMETOLOGY METHOD 07/08/2024 11:51 AM [facility] NRBC 0.0 <1.0 % LAB HEMETOLOGY METHOD 07/08/2024 11:51 AM [facility] NRBC Absolute 0.00 <0.10 K/mcL LAB HEMETOLOGY METHOD 07/08/2024 11:51 AM [facility] Neutrophils Relative 89.5 % LAB HEMETOLOGY METHOD 07/08/2024 11:51 AM [facility] Lymphocytes Relative 2.4 % LAB HEMETOLOGY METHOD 07/08/2024 11:51 AM [facility] Monocytes Relative 7.0 % LAB HEMETOLOGY METHOD 07/08/2024 11:51 AM [facility] Eosinophils Relative 0.2 % LAB HEMETOLOGY METHOD 07/08/2024 11:51 AM [facility] Basophils Relative 0.2 % LAB HEMETOLOGY METHOD 07/08/2024 11:51 AM [facility] Immature Granulocytes Relative 0.7 % LAB HEMETOLOGY METHOD 07/08/2024 11:51 AM [facility] Neutrophils Absolute 16.86(H) 1.50 - 7.00 K/mcL LAB HEMETOLOGY METHOD 07/08/2024 11:51 AM [facility] Lymphocytes Absolute 0.46(L) 1.00 - 5.00 K/mcL LAB HEMETOLOGY METHOD 07/08/2024 11:51 AM [facility] Monocytes Absolute 1.32(H) 0.20 - 1.00 K/mcL LAB HEMETOLOGY METHOD 07/08/2024 11:51 AM [facility] Eosinophils Absolute 0.04 0.00 - 0.50 K/mcL LAB HEMETOLOGY METHOD 07/08/2024 11:51 AM [facility] Basophils Absolute 0.04 0.00 - 0.20 K/mcL LAB HEMETOLOGY METHOD 07/08/2024 11:51 AM [facility] [facility] Immature Granulocytes Absolute 0.13(H) 0.00 - 0.03 K/mcL LAB HEMETOLOGY METHOD 07/08/2024 11:51 AM EST [facility] Blood Venous blood specimen / Unknown Venipuncture / Unknown 07/08/2024 11:10 AM EST 07/08/2024 11:42 AM EST Jj Wolfe MD LAB BLOOD ORDERABLES America l Result Performing Organization Address City/[facility]/ZIP Co de Phone Number [facility] [address] [place] [address], [place] [phone] * B-type natriuretic peptide (07/08/2024 11:10 AM EST) Pathologist [facility] BNP 86 <=100 pcg/mL LAB CHEMISTRY METHOD 07/08/2024 12:26 PM EST [facility] Blood Venous blood specimen / Unknown Venipuncture / Unknown 07/08/2024 11:10 AM EST 07/08/2024 11:42 AM EST us Jj Wolfe MD LAB BLOOD ORDERABLES America l Result Performing Organization Address [facility] Co de Phone Number [facility] [address] [place] [address], [place] [phone] * Magnesium (07/08/2024 11:10 AM EST) Pathologist [facility] Magnesium 2.1 1.9 - 2.6 mg/dL LAB CHEMISTRY METHOD 07/08/2024 12:54 PM EST [facility] Comment:Hemolysis present Blood Venous blood specimen / Unknown Venipuncture / Unknown 07/08/2024 11:10 AM EST 07/08/2024 11:42 AM EST us Jj Wolfe MD LAB BLOOD ORDERABLES America l Result Performing Organization Address City/[facility]/ZIP Co de Phone Number [facility] [address] [place] [address], [place] [phone] * (ABNORMAL) Lipase (07/08/2024 11:10 AM EST) [facility] [address] Lipase <10(L) 13 - 75 unit/L LAB CHEMISTRY METHOD 07/08/2024 12:54 PM [facility] Blood Venous blood specimen / Unknown Venipuncture / Unknown 07/08/2024 11:10 AM EST 07/08/2024 11:42 AM EST Jj Wolfe MD LAB BLOOD ORDERABLES America dominguez Result [facility] [address] [place] [address], [place] [phone] * (ABNORMAL) Comprehensive metabolic panel (07/08/2024 11:10 AM EST) [facility] [address] Sodium 126(L) 133 - 145 mmol/L LAB CHEMISTRY METHOD 07/08/2024 12:54 PM [facility] Potassium 4.2 3.5 - 5.5 mmol/L LAB CHEMISTRY METHOD 07/08/2024 12:54 PM [facility] Comment:Hemolysis present Chloride 93(L) 96 - 110 mmol/L LAB CHEMISTRY METHOD 07/08/2024 12:54 PM [facility] CO2 21 21 - 32 mmol/L LAB CHEMISTRY METHOD 07/08/2024 12:54 PM [facility] Anion Gap 12(H) 3 - 11 LAB CHEMISTRY METHOD 07/08/2024 12:54 PM [facility] Glucose 265(H) 70 - 100 mg/dL LAB CHEMISTRY METHOD 07/08/2024 12:54 PM [facility] BUN 59(H) 5 - 25 mg/dL LAB CHEMISTRY METHOD 07/08/2024 12:54 PM [facility] Comment:Results verified by repeat testing Creatinine 4.10(H) 0.50 - 1.10 mg/dL LAB CHEMISTRY METHOD 07/08/2024 12:54 PM [facility] Comment:Results verified by repeat testing eGFR 10(L) >=60 mL/min/1. 73m2 LAB CHEMISTRY METHOD 07/08/2024 12:54 PM [facility] Comment:Calculation based on the??Chronic Kidney Disease Epidemiology Collaboration (CKD-EPI) equation refit??without adjustment for race. BUN/Creatinine Ratio 14.4 LAB CHEMISTRY METHOD 07/08/2024 12:54 PM [facility] Calcium 10.6(H) 8.5 - 10.5 mg/dL LAB CHEMISTRY METHOD 07/08/2024 12:54 PM [facility] AST (SGOT) 57(H) 10 - 42 unit/L LAB CHEMISTRY METHOD 07/08/2024 12:54 PM [facility] Comment:Hemolysis present ALT (SGPT) 39 10 - 60 unit/L LAB CHEMISTRY METHOD 07/08/2024 12:54 PM [facility] Alkaline Phosphatase 149(H) 42 - 121 unit/L LAB CHEMISTRY METHOD 07/08/2024 12:54 PM [facility] Total Protein 6.3 6.0 - 8.0 g/dL LAB CHEMISTRY METHOD 07/08/2024 12:54 PM [facility] Albumin 2.1(L) 3.2 - 5.0 g/dL LAB CHEMISTRY METHOD 07/08/2024 12:54 PM [facility] Total Bilirubin 0.4 0.0 - 1.4 mg/dL LAB CHEMISTRY METHOD 07/08/2024 12:54 PM [facility] Blood Venous blood specimen / Unknown Venipuncture / Unknown 07/08/2024 11:10 AM EST 07/08/2024 11:42 AM EST us Jj Wolfe MD LAB BLOOD ORDERABLES America l Result Performing Organization Address [facility]/ZIP Co de Phone Number [facility] [address] [place] [address], * (ABNORMAL) Troponin I high sensitivity (07/08/2024 11:10 AM EST) [facility] [address] High Sensitivity Troponin I 80(H) <=54 ng/L LAB CHEMISTRY METHOD 07/08/2024 12:20 PM EST [facility] Blood Venous blood specimen / Unknown Venipuncture / Unknown 07/08/2024 11:10 AM EST 07/08/2024 11:42 AM EST Narrative [facility] - 07/08/2024 12:20 PM EST High levels of biotin in samples may falsely decrease hsTroponin values. ??Use caution when interpreting hsTroponin results in patients taking biotin who exhibit renal impairment (eGFR <60) or in patients taking more than 20 mg/day of biotin. Jj Wolfe MD LAB BLOOD ORDERABLES America l Result Performing Organization Address [facility] Co de Phone Number [facility] [address] [place] [address], * ECG 12 lead (07/08/2024 10:46 AM EST) [facility] [address] Ventricular Rate ECG 94 BPM GEMUSE Atrial Rate 94 BPM GEMUSE P-R Interval 196 ms GEMUSE QRS Duration 118 ms GEMUSE Q-T Interval 354 ms GEMUSE QTc 442 ms GEMUSE P Wave [place] 79 degrees GEMUSE R [place] 15 degrees GEMUSE T [place] 4 degrees GEMUSE ECG Interpretation Sinus rhythm with occasional Premature ventricular complexes Incomplete right bundle branch block Abnormal ECG When compared with ECG of 17-JUN-2024 08:35, Premature ventricular complexes are now Present ST now depressed in Lateral leads Confirmed by CHARLES HERNÁNDEZ ([id number]) on 07/09/2024 5:47:06 PM GEMUSE 07/08/2024 10:4 6 AM EST 07/09/2024 5:47 PM EST Aye HEDRICK ECG ORDERABLES Final Result GEMUSE * ECG-Outside (07/08/2024) Provider Onbase MD ECG ORDERABLES Final Result * ECG-Annotated (07/08/2024) Provider Onbase MD ECG ORDERABLES Final Result documented in this encounter Visit Diagnoses Diagnosis [...] on Thu07/28/24 at 1140, For 1 dose albuterol 2.5 [...] Daily, First dose on 07/24/24 at 0900 Given 08/06/2024 9:30 AM EST [...] VTE/PE Treatment 0930 (Given - Provider: Jacquelin Davidson RN) atorvastatin (LIPITOR) tablet 10 mg 10 mg, oral, Nightly, First dose on 07/09/24 at 2100 2053 (Given - Provider: María Hawk RN) 1145 (AUG Hold - Provider: Automatic Transfer Provider - Reason: Patient not available)1424 (AUG Unhold - Provider: Automatic Transfer Provider)212 (Given - Provider: Katina Machuca RN) B complex-vitamin C-folic acid (NEPHRO-SAVITA) tablet 1 tablet 1 tablet (1 each), oral, Daily, First dose on 07/18/24 at 1700 0853 (Given - Provider: Jolene Cardona RN) [...] (AUG Unhold - Provider: Automatic Transfer Provider)212 (Not [...] Transfer Provider - Reason: Patient not available)1424 ([facility] Unhold - Provider: Automatic Transfer Provider)1647 (Given - Provider: Jacquelin Davidson RN)212 (Given - Provider: Katina Machuca, ILIR) 0732 (Not Given - Provider: Jacquelin Davidson [...] 0651 (Given - Provider: María Hawk RN)1145 (MAR Hold - Provider: Automatic Transfer Provider - Reason: Patient not available)1424 ([facility] Unhold - Provider: Automatic Transfer Provider) 0617 [...] Transfer Provider - Reason: Patient not available)1424 ([facility] Unhold - Provider: Automatic Transfer Provider) 0929 (Not Given - Provider: Jacquelin Davidson RN - Reason: Other) predniSONE (DELTASONE) tablet 60 mg 60 mg, oral, Daily, First dose on Thu07/24/24 at 0900 0852 (Given - Provider: Jolene Cardona, ILIR) 0828 (Not Given - Provider: Jacquelin Davidson RN - Reason: Patient not available)1145 ([facility] Hold - Provider: Automatic Transfer Provider - Reason: Patient not available)1424 ([facility] Unhold - Provider: Automatic Transfer Provider) 0930 (Given - Provider: Jacquelin Davidson RN) sodium chloride 0.9 % flush 10 mL(Linked Group 1) 10 mL, intravenous, 2 times daily, First dose on Thu07/08/24 at 1445 0857 (Given - Provider: Jolene Cardona, ILIR)2109 (Given - Provider: María Hawk, ILIR) 0829 (Not Given - Provider: Jacquelin Davidson RN - Reason: Patient not available)1145 ([facility] Hold - Provider: Automatic Transfer Provider - Reason: Patient not available)1424 ([facility] Unhold - Provider: Automatic Transfer Provider)2206 (Not [...] Davidson RN - Reason: Patient not available)1145 ([facility] Hold - Provider: Automatic Transfer Provider - Reason: Patient not available)1424 ([facility] Unhold - Provider: Automatic Transfer Provider)2126 (Given [...] Davidson RN - Reason: Patient not available)1145 ([facility] Hold - Provider: Automatic Transfer Provider - Reason: Patient not available)1424 ([facility] Unhold - Provider: Automatic Transfer Provider) thiamine (VITAMIN B-1) tablet 100 mg 100 mg, oral, Daily, First dose on 07/18/24 at 1700 0853 (Given - Provider: Jolene Cardona, RN) 0829 (Not Given - Provider: Jacquelin Davidson, ILIR - Reason: Patient not available)1145 ([facility] Hold - Provider: Automatic Transfer Provider - Reason: Patient not available)1424 ([facility] Unhold - Provider: Automatic Transfer Provider) 0930 (Given - Provider: Jacquelin Davidson RN) PRN Medication Order 08/04/2024 08/05/2024 08/06/2024 acetaminophen (TYLENOL) tablet 650 mg 650 mg, oral, Every 6 hours PRN, mild pain, fever - temperature GREATER than 38 C (100.4 F), Starting on Thu07/08/24 at 1437 2134 (Given - Provider: María Hawk RN) 1145 ([facility] Hold - Provider: Automatic Transfer Provider - Reason: Patient not available)1424 ([facility] Unhold - Provider: Automatic Transfer Provider)2124 (Given - Provider: Katina Machuca, ILIR) acetaminophen (TYLENOL) tablet 650 mg 650 mg, oral, Once as needed, mild pain, headaches, fever - temperature GREATER than 38 C (100.4 F), Starting on Soco 07/28/24 at 1140, For 1 dose 1145 ([facility] Hold - Provider: Automatic Transfer Provider - Reason: Patient not available)1424 ([facility] Unhold - Provider: Automatic Transfer Provider)214 (Not [...] unresolved -Administer with 8L of oxygen 1145 ([facility] Hold - Provider: Automatic Transfer Provider - Reason: Patient not available)1424 ([facility] Unhold - Provider: Automatic Transfer Provider) benzonatate (TESSALON) capsule 100 mg 100 mg, oral, 3 times daily PRN, cough, Starting on Thu07/15/24 at 0957, Cough Do not crush or chew., Indications: cough 1145 ([facility] Hold - Provider: Automatic Transfer Provider - Reason: Patient not available)1424 ([facility] Unhold - Provider: Automatic Transfer Provider) dextrose (D50W) 50% injection 12.5 g 12.5 g, intravenous, Every 15 min PRN, low blood sugar, moderate hypoglycemia *Patient is Unconscious, NPO, unable to swallow: BG 54 - 69 mg/dl*, Starting on Thu07/08/24 at 1649 1145 ([facility] Hold - Provider: Automatic Transfer Provider - Reason: Patient not available)1424 ([facility] Unhold - Provider: Automatic Transfer Provider) dextrose (D50W) 50% injection 25 g 25 g, intravenous, Every 15 min PRN, low blood sugar, severe hypoglycemia *Patient is Unconscious, NPO, unable to swallow: BG LESS than 54 mg/dL*, Starting on Thu07/08/24 at 1649 1145 ([facility] Hold - Provider: Automatic Transfer Provider - Reason: Patient not available)1424 ([facility] Unhold - Provider: Automatic Transfer Provider) dextrose 15 gram/60 mL oral solution 15 g 15 g, oral, Every 15 min PRN, low blood sugar, hypoglycemia *Patient conscious AND able to drink and swallow safely*, Starting on Thu07/08/24 at 1649 1145 ([facility] Hold - Provider: Automatic Transfer Provider - Reason: Patient not available)1424 ([facility] Unhold - Provider: Automatic Transfer Provider) dextrose 15 gram/60 mL oral solution 30 g 30 g, oral, Every 15 min PRN, low blood sugar, hypoglycemia *Patient conscious AND able to drink and swallow safely*, Starting on Thu07/08/24 at 1649 1145 ([facility] Hold - Provider: Automatic Transfer Provider - Reason: Patient not available)1424 ([facility] Unhold - Provider: Automatic Transfer Provider) diphenhydrAMINE [...] years of age, or with asthma 1145 ([facility] Hold - Provider: Automatic Transfer Provider - Reason: Patient not available)1424 ([facility] Unhold - Provider: Automatic Transfer Provider) diphenhydrAMINE [...] years of age, or with asthma 1145 ([facility] Hold - Provider: Automatic Transfer Provider - Reason: Patient not available)1424 ([facility] Unhold - Provider: Automatic Transfer Provider) EPINEPHrine (ADRENALIN) IM Kit - adult 0.3 mg 0.3 mg, intramuscular, Every 15 min PRN, anaphylaxis, For systolic BP LESS than 90 mmHg, Starting on Soco 07/28/24 at 1140, For 3 doses, May repeat every 15 minutes as needed for a maximum of 3 doses 1145 ([facility] Hold - Provider: Automatic Transfer Provider - Reason: Patient not available)1424 ([facility] Unhold - Provider: Automatic Transfer Provider) famotidine [...] push over at least 2 minutes 1145 ([facility] Hold - Provider: Automatic Transfer Provider - Reason: Patient not available)1424 ([facility] Unhold - Provider: Automatic Transfer Provider) Glucagon HCl (rDNA) injection 1 mg 1 mg, intramuscular, Once as needed, low blood sugar, severe hypoglycemia, Starting on 07/08/24 at 1649, For 1 dose 1145 ([facility] Hold - Provider: Automatic Transfer Provider - Reason: Patient not available)1424 ([facility] Unhold - Provider: Automatic Transfer Provider) hydrALAZINE (APRESOLINE) injection 10 mg 10 mg, intravenous, Every 6 hours PRN, systolic BP greater than:, SBP>160, Starting on 07/09/24 at 1504 1145 ([facility] Hold - Provider: Automatic Transfer Provider - Reason: Patient not available)1424 ([facility] Unhold - Provider: Automatic Transfer Provider) hydrocortisone [...] -Generalized rash Administer over 2 minutes 1145 ([facility] Hold - Provider: Automatic Transfer Provider - Reason: Patient not available)1424 ([facility] Unhold - Provider: Automatic Transfer Provider) HYDROmorphone (PF) injection 0.5 mg 0.5 mg, intravenous, Every 3 hours PRN, severe pain or when therapies for moderate pain were not effective, Starting on 07/08/24 at 1437 1145 ([facility] Hold - Provider: Automatic Transfer Provider - Reason: Patient not available)1424 ([facility] Unhold - Provider: Automatic Transfer Provider) naloxone [...] up to 10 doses (0.4 mg) 1145 ([facility] Hold - Provider: Automatic Transfer Provider - Reason: Patient not available)1424 ([facility] Unhold - Provider: Automatic Transfer Provider) ondansetron (PF) (ZOFRAN) injection 4 mg 4 mg, intravenous, Every 6 hours PRN, vomiting, nausea, Starting on Thu07/08/24 at 1437, -ONLY give IV if patient is unable to take orally. -If inadequate response within 30 minutes, proceed to next-line agent or contact provider if no further options ordered. 0446 (Given - Provider: María Hawk, ILIR) 1145 ([facility] Hold - Provider: Automatic Transfer Provider - Reason: Patient not available)1424 ([facility] Unhold - Provider: Automatic Transfer Provider) oxyCODONE (ROXICODONE) immediate release tablet 5 mg 5 mg, oral, Every 4 hours PRN, moderate pain or when therapies for mild pain were not effective, Starting on Thu07/08/24 at 1437 1145 ([facility] Hold - Provider: Automatic Transfer Provider - Reason: Patient not available)1424 ([facility] Unhold - Provider: Automatic Transfer Provider) polyvinyl alcohol-povidone (PF) (ARTIFICIAL TEARS) 1.4-0.6 % ophthalmic solution 2 drop 2 drop, Both Eyes, Every 2 hours PRN, dry eyes, Starting on Thu07/08/24 at 1746 1122 (Given - Provider: Jolene Cardona, ILIR)2101 (Given - Provider: María Hawk RN) 1145 ([facility] Hold - Provider: Automatic Transfer Provider - Reason: Patient not available)1424 ([facility] Unhold - Provider: Automatic Transfer Provider)2124 (Given - Provider: Katina Machuca RN) sodium chloride 0.9 % bolus 500 mL 500 mL, intravenous, at 2,000 mL/hr, Administer over 15 Minutes, Once as needed, for hypotensive management (systolic BP below 90 mmHg), Starting on Soco 07/28/24 at 1140, For 1 dose, Run wide open and await physician orders 1145 ([facility] Hold - Provider: Automatic Transfer Provider - Reason: Patient not available)1424 ([facility] Unhold - Provider: Automatic Transfer Provider) sodium chloride 0.9 % flush 10 mL(Linked Group 1) 10 mL, intravenous, As needed, line care, Starting on Thu07/08/24 at 1437 1145 ([facility] Hold - Provider: Automatic Transfer Provider - Reason: Patient not available)1424 ([facility] Unhold - Provider: Automatic Transfer Provider) sodium chloride 0.9 % flush 10 mL(Linked Group 2) 10 mL, intravenous, As needed, line care, Starting on 07/23/24 at 1617 1145 ([facility] Hold - Provider: Automatic Transfer Provider - Reason: Patient not available)1424 ([facility] Unhold - Provider: Automatic Transfer Provider) sodium [...] each new unit of blood administered 1145 ([facility] Hold - Provider: Automatic Transfer Provider - Reason: Patient not available)1424 ([facility] Unhold - Provider: Automatic Transfer Provider) sodium [...] each new unit of blood administered 1145 ([facility] Hold - Provider: Automatic Transfer Provider - Reason: Patient not available)1424 ([facility] Unhold - Provider: Automatic Transfer Provider) sodium [...] each new unit of blood administered 1145 ([facility] Hold - Provider: Automatic Transfer Provider - Reason: Patient not available)1424 ([facility] Unhold - Provider: Automatic Transfer Provider) sodium [...] mg 1 06/30 insulin glargine (LANTUS) in [facility] 10 Units 1 07/17/2024 insulin lispro injection [...] mg 1 2024 insulin glargine (LANTUS) in [facility] 8 Units 1 07/11/2024 insulin lispro injection [...] 15 gram/60 mL oral solution 15 g 1 07/08/2024 dextrose 15 gram/60 mL oral solution [...] 1 07/09/2024 IP CONSULT TO NUTRITION SERVICES 07/08/19 25 Dialysis Count Last Ordered Date [...] Last Indicated Resolved Time Respiratory Rule-Out 07/08/2024 07/08/202410/2 025 4:18 PM EST COVID-19 Rule-Out 07/08/2024 07/08/2024 07/08/2024 4:18 PM EST Tuberculosis Rule-Out 08/05/2024 08/05/2024 documented as of this encounter Care Teams Market Director Relationship Specialty Start Date End Date Eloisa Vázquez DO [address] [place] [address] PCP - General 04/12/24 documented as of this encounter
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
--- OUTSIDE RECORDS SUMMARY | 2024-08-16 06:28 | XMS_ITS | Encounter Summary ---
Author Organization [facility] Address [address] [facility] [address] [place] [address] Phone Care Team Providers Care Dandy Operator Name Role Phone Eloisa Vázquez Primary Care Provider [phone] Encounter Details Date Type Department Care Team (Late st Contact Info) Description 07/28/2024 Telephone [facility]. [address] [facility] [address] [place] [phone] Maggy Mcgarry [address] [facility] [address] [place] [phone] Social History Tobacco Use Types Packs/Day Years [...] you regarding the biopsy results Dr. Santoyo [phone] Messaged has been sent on [employer] documented in this encounter Plan of Treatment Not on file documented as of this encounter Visit Diagnoses Not on filedocumented in this encounter Care Teams Dandy Operator Relationship Specialty Start Date End Date Eloisa Vázquez [address] [place] [id number] PCP - General Internal Medicine 07/11/24 documented as of this encounter
--- OUTSIDE RECORDS SUMMARY | 2024-08-16 06:28 | XMS_ITS | Encounter Summary ---
Author Organization [facility] Address [address] [place] [address] Care Team Providers Care Clothing And Textiles Teacher Name Role Phone Eloisa Vázquez DO Primary Care Provider [phone] Reason for Visit * Auth/Cert Specialty Diagnoses / Procedures Referred By Conthector t Referred To Contact Diagnoses Acute encephalopathy Procedures . Wayne Donahue MD [address] [place] [phone] Phone: tel: fax: [facility] Emergency [address] [place] [address] Phone: tel: Referral ID Status Reason Start Date Expiration Date Visits Re quested Visits Authorized [id number] 1 1 Encounter Details Date Type Department Care Team (Late st Contact Info) Description 08/05/2024 11:46 AM EST Anesthesia Event [facility] Main OR [address] [place] [address] Monroe Kim MD [address] [place] [id number] Anesthesia Record Procedure Summary Procedure Name Responsible [...] transport to designated recovery area. {Transport to PACU/ICU:[id number]} 1309 Handoff to RN I completed my [...] 0.9 % infusion 375 mL * Agents Name O2 N2O Air Sevoflurane Inspired Sevoflurane * Blood No blood administrations on file. [...] Yes; Single Lumen; 18 G; Powerglide Lot: [id number]; 10 cm; Right; Basilic; Chlorhexidine; Yes; (mask,gloves,drape); None; 37 cm; 0 cm; Transparent dressing, Other (Comment) (Statlock); Ricco Spencer IV RN; 1; Tolerated well; Blood return, Ultrasound; 08/06/24; 1147; Other (Comment) (discharged); 10 cm; No 07/23/24 1619 by Maggy Spencer RN 08/06/24 1147 by Chucky Romero [...] documented in this encounter Progress Notes * Candelraia Tatum CRNA - 08/05/2024 1:12 PM EST Patient: Ana Contreras Procedure Summary Date: 08/05/24 Room / Location: [facility] OR [address] [place] [address] OR Anesthesia Start: 1146 Anesthesia Stop: 1310 [...] during procedure: OR Anesthesiologist: Monroe Kim MD Resident/PAYROLL REPRESENTATIVE: Candelaria Tatum CRNA Performed: resident/PAYROLL REPRESENTATIVE/CAA Performed by: Candelaria Tatum CRNA Authorized by: [...] complication, without long-term current use of insulin ([facility]) Other (+) Iron deficiency anemia Clinical information [...] PM EST Office Visit Gastroenterology - [address] [address] Josiane Smith, DOOR WORKER [address] [address] 08/24/2024 11:15 AM EST Office Visit Internal Medicine - [place] [address] [place] [address] Eloisa Vázquez DO [address] [place] [address] 09/05/2024 10:00 AM EDT Office Visit Endocrinology [address] [address] Kathy Michelle PA [address] [place] [address] 09/06/2024 11:00 AM EDT Ancillary Procedure [facility] [address] [place] [phone] documented as of this encounter Procedures Procedure [...] during procedure: OR Anesthesiologist: Monroe Kim MD Resident/PAYROLL REPRESENTATIVE: Candelaria Tatum CRNA Performed: resident/PAYROLL REPRESENTATIVE/CAA Performed by: Candelaria Tatum CRNA Authorized by: [...] documented as of this encounter Care Teams Clothing And Textiles Teacher Relationship Specialty Start Date End Date Eloisa Vázquez DO [address] [facility] [place] [address] PCP - General 04/12/24 documented as of this encounter
--- OUTSIDE RECORDS SUMMARY | 2024-08-16 06:28 | XMS_ITS | Encounter Summary ---
Author Organization [facility] Address [address] [address] Phone Care Team Providers Care Flap Presser Name Role Phone Gurpreet Eloisa Primary Care Provider [phone] Reason for Referral * Outpatient Services (Routine) - Pending Review Specialty Diagnoses / Procedures Referred By Conthector t Referred To Contact Diagnoses ANCA associated vasculitis (HCC) 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) Procedures Rituxan Infusion Orders Anthony Norton MD [address] [address] Phone: tel: fax: Referral ID Status Reason Start Date Expiration Date V isits Requested Visits Authorized [id number] Pending Review 08/08/2024 08/08/2025 1 1 Encounter Details Date Type Department Care Team (Latest Contact Info) Description 08/08/2024 Office Communication [facility] [address] [address] Anthony Norton MD [address] [address] ANCA associated vasculitis (HCC) (Primary Dx); 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) Social History Tobacco Use Types Packs/Day Years Used Date Smoking Tobacco: Never Assessed Comments Unknown Sex and Gender Information Value Date Recorded Sex Assigned at Not on file Legal Sex Female 10:11 AM EST Gender Identity Not on file Sexual Orientation Not on file documented as of this encounter Miscellaneous Notes * Telephone Encounter - Anthony Norton MD - 08/08/2024 9:34 AM EST Get rec from Chloe hinds[p re Renal consult and last OV notes Kidney Bx ANCA level D/c summary etc Need to schedule IV rituxin--she is at [facility] She needs infusion for 08/12/24--I will put orde in our EPIC but u will need to cntact leslie brady tocoordinate documented in this encounter Plan of Treatment Not on file documented as of this encounter Visit Diagnoses Diagnosis ANCA associated vasculitis (HCC)- Primary 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) 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 documented in this encounter Care Teams Flap Presser Relationship Specialty Start Date End Date Eloisa Vázquez [address] [place] [address] PCP - General Internal Medicine 07/11/24 documented as of this encounter
--- OUTSIDE RECORDS SUMMARY | 2024-08-16 06:30 | XMS_ITS | Encounter Summary ---
Author Organization [facility] Address [address] [address] Phone Care Team Providers Care Woodworking Shop Laborer Name Role Phone Eloisa Vázquez Primary Care Provider [phone] Encounter Details Date Type Department Care Team (Late st Contact Info) Description 08/08/2024 Treatment [facility] [address] [address] Boni Pierce MD [address] [address] Social History Tobacco Use Types Packs/Day Years Used Date Smoking Tobacco: Never Assessed Comments Unknown Sex and Gender Information Value Date Recorded Sex Assigned at Not on file Legal Sex Female 10:11 AM EST Gender Identity Not on file Sexual Orientation Not on file documented as of this encounter Miscellaneous Notes * Dialysis Note - Boni Pierce MD - 08/08/2024 12:00 AM EST Patient: Ana Contreras : 1945 Note Type: Dialysis Rounds-CLAUDIA Service Date: 08/08/2024 This patient was personally seen during dialysis for the management of acute kidney injury requiring renal replacement therapy. 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
--- OUTSIDE RECORDS SUMMARY | 2024-08-16 06:30 | XMS_ITS | Encounter Summary ---
Author Organization [facility].. Address [address] [address] Phone Care Team Providers Care Occupational Therapy Technician Name Role Phone Eloisa Vázquez Primary Care Provider [phone] Encounter Details Date Type Department Care Team (Late st Contact Info) Description 08/11/2024 Orders Only [facility] [address] [address] Anthony Norton MD [address] [address] ANCA associated vasculitis (HCC); 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) Social History Tobacco Use Types Packs/Day Years Used Date Smoking Tobacco: Never Assessed Comments Unknown Sex and Gender Information Value Date Recorded Sex Assigned at Not on file Legal Sex Female 10:11 AM EST Gender Identity Not on file Sexual Orientation Not on file documented as of this encounter Plan of Treatment Not on file documented as of this encounter Procedures Procedure Name Priority Date/Time Associated Diagnosis Comments BASIC METABOLIC PANEL BUNDLED (HC) Routine 08/10/2024 3:00 AM EST LIH (HC) Routine 08/10/2024 3:00 AM EST GLUCOSE, RANDOM Routine 08/10/2024 3:00 AM EST CONFIRMATION TEST HCV Routine 08/08/2024 3:00 AM EST LIH (HC) Routine 08/08/2024 3:00 AM EST KT/V NATURAL LOG, URR (HC) Routine 08/08/2024 3:00 AM EST CALCIUM PHOSPHORUS PRODUCT, ADJUSTED (HC) Routine 08/08/2024 3:00 AM EST HEPATITIS C ABS W/REFLEX RNA DETECTR Routine 08/08/2024 3:00 AM EST HEPATITIS B SURFACE ANTIGEN W/REFL CONFIRM Routine 08/08/2024 3:00 AM EST TRANSFERRIN SATURATION Routine 3:00 AM EST HEPATITIS B CORE AB TOTAL Routine 08/08/2024 3:00 AM EST ALUMINUM LEVEL Routine 08/08/2024 3:00 AM EST VITAMIN D 25 HYDROXY Routine 08/08/2024 3:00 AM EST HEPATITIS B SURFACE ANTIBODY QUANT Routine 08/08/2024 3:00 AM EST CBC AND DIFFERENTIAL Routine 08/08/2024 3:00 AM EST URIC ACID Routine 08/08/2024 3:00 AM EST ALT Routine 08/08/2024 3:00 AM EST AST Routine 08/08/2024 3:00 AM EST PROTEIN, TOTAL, SERUM Routine 08/08/2024 3:00 AM EST ALKALINE PHOSPHATASE Routine 08/08/2024 3:00 AM EST PTH, INTACT Routine 08/08/2024 3:00 AM EST MAGNESIUM Routine 08/08/2024 3:00 AM EST LACTATE DEHYDROGENASE Routine 08/08/2024 3:00 AM EST HEMOGLOBIN A1C Routine 08/08/2024 3:00 AM EST GLUCOSE, RANDOM Routine 08/08/2024 3:00 AM EST FERRITIN Routine 08/08/2024 3:00 AM EST CREATININE, SERUM Routine 08/08/2024 3:0 0 AM EST BILIRUBIN, TOTAL Routine 08/08/2024 3:00 AM EST LIPID PANEL Routine 08/08/2024 3:00 AM EST ELECTROLYTE PANEL Routine 08/08/2024 3:0 0 AM EST documented in this encounter Results * LIH (08/10/2024 3:00 AM EST) Lipemia Normal Normal [facility] Icterus Normal Normal [facility] Hemolysis Normal Normal [facility] 08/10/2024 3:00 AM EST 08/11/2024 2:52 PM EST Anthony Norton MD LAB [id number] SOLICITED RESULTS Final Result Performing Organization Address City/[facility]/ZIP Co de Phone Number [facility] [address] [place] [address] * (ABNORMAL) Glucose, random (08/10/2024 3:00 AM EST) Glucose 232(H) 74 - 109 mg/dL [facility] 08/10/2024 3:00 AM EST 08/11/2024 2:52 PM EST Anthony Norton MD LAB BLOOD ORDERABLES Final Re sult Performing Organization Address City/[facility]/ZIP Co de Phone Number [facility] [address] [place] [address] * (ABNORMAL) Basic Metabolic Panel Bundled (08/10/2024 3:00 AM EST) Sodium 134(L) 136 - 145 mEq/L [facility] Potassium 4.6 3.4 - 5.0 mEq/L [facility] Chloride 100 98 - 107 mEq/L [facility] Bicarbonate (CO2) 25 21 - 31 mEq/L [facility] Anion Gap 9 3 - 14 mEq/L [facility] BUN 50(H) 7 - 25 mg/dL [facility] Calcium 8.7 8.6 - 10.3 mg/dL [facility] Creatinine 3.73(H) 0.55 - 1.02 mg/dL [facility] 08/10/2024 3:00 AM EST 08/11/2024 2:52 PM EST Anthony Norton MD LAB [id number] SOLICITED RESULTS Final Result Performing Organization Address [facility] de Phone Number [facility] [address] [place] [address] * Aluminum level (08/08/2024 3:00 AM EST) Aluminum 4 1 - 20 ug/L [facility] 08/08/2024 3:00 AM EST 08/09/2024 1:21 PM EST Anthony Norton MD LAB BLOOD ORDERABLES Final Re sult Performing Organization Address [facility] de Phone Number [facility] [address] [place] [address] * Hepatitis B Core Antibody, Total (08/08/2024 3:00 AM EST) HBc Total Ab, S Negative Negative [facility] 08/08/2024 3:00 AM EST 08/09/2024 1:17 PM EST us Anthony Norton MD LAB BLOOD ORDERABLES Final Re sult Performing Organization Address [facility] de Phone Number [facility] [address] [place] [address] * Confirmation Test HCV (08/08/2024 3:00 AM EST) Pathologist [facility] Hep C Ab Confirmation Not needed [facility] 08/08/2024 3:00 AM EST 08/09/2024 1:15 PM EST Anthony Norton MD LAB BLOOD ORDERABLES Final Re sult Performing Organization Address [facility] de Phone Number [facility] [address] [place] [address] * HEPATITIS C ABS W/REFLEX RNA DETECTR (08/08/2024 3:00 AM EST) Pathologist [facility] Hep C Virus Ab Non-Reacti ve Non-Reacti ve [facility] 08/08/2024 3:00 AM EST 08/09/2024 1:17 PM EST Anthony Norton MD LAB [id number] SOLICITED RESULTS Final Result Performing Organization Address [facility] de Phone Number [facility] [address] [place] [phone] * Hepatitis B Surface Ag w/Reflex Confirmation (08/08/2024 3:00 AM EST) Pathologist [facility] Hep B Surface Antigen Negative Negative [facility] 08/08/2024 3:00 AM EST 08/09/2024 1:17 PM EST Anthony Norton MD LAB BLOOD ORDERABLES Final Re sult Performing Organization Address [facility] de Phone Number [facility] [address] [place] [address] * Vitamin D 25 Hydroxy (08/08/2024 3:00 AM EST) Pathologist [facility] Vitamin D, 25-Hydroxy 38 30 - 100 ng/mL [facility] Comment: Status ? Adult ?? Pediatric Deficient: ? <20 ? <15 Insufficient: ??20-29 ?? 15-19 Sufficient: ?30-100 ??20-100 08/08/2024 3:00 AM EST 08/09/2024 1:17 PM EST us Anthony Norton MD LAB BLOOD ORDERABLES Final Re sult Performing Organization Address [facility] Co de Phone Number [facility] [address] [place] [address] * Uric Acid (08/08/2024 3:00 AM EST) Uric Acid 5.0 2.3 - 6.6 mg/dL [facility] 08/08/2024 3:00 AM EST 08/09/2024 1:17 PM EST Anthony Norton MD LAB BLOOD ORDERABLES Final Re sult Performing Organization Address [facility] de Phone Number [facility] [address] [place] [address] * (ABNORMAL) TSAT (08/08/2024 3:00 AM EST) Iron 34(L) 50 - 170 ug/dL [facility] Transferrin 126(L) 250 - 380 mg/dL [facility] TIBC 176(L) 211 - 406 ug/dL [facility] Iron Saturation (TSat) 19(L) 22 - 52 % [facility] 08/08/2024 3:00 AM EST 08/09/2024 1:17 PM EST Anthony Norton MD LAB BLOOD ORDERABLES Final Re sult Performing Organization Address [facility] de Phone Number [facility] [address] [place] [address] * (ABNORMAL) Protein, total (08/08/2024 3:00 AM EST) Total Protein 5.7(L) 6.4 - 8.9 g/dL [facility] 08/08/2024 3:00 AM EST 08/09/2024 1:17 PM EST Anthony Norton MD LAB BLOOD ORDERABLES Final Re sult Performing Organization Address [facility] de Phone Number [facility] [address] [place] [address] * Electrolyte panel (08/08/2024 3:00 AM EST) Sodium 136 136 - 145 mEq/L [facility] Potassium 4.7 3.4 - 5.0 mEq/L [facility] Chloride 102 98 - 107 mEq/L [facility] Bicarbonate (CO2) 24 21 - 31 mEq/L [facility] Anion Gap 10 3 - 14 mEq/L [facility] 08/08/2024 3:00 AM EST 08/09/2024 1:17 PM EST Anthony Norton MD LAB BLOOD ORDERABLES Final Re sult Performing Organization Address [facility] de Phone Number [facility] [address] [place] [address] * Magnesium (08/08/2024 3:00 AM EST) Pathologist [facility] Magnesium 1.9 1.9 - 2.7 mg/dL [facility] 08/08/2024 3:00 AM EST 08/09/2024 1:17 PM EST Anthony Norton MD LAB BLOOD ORDERABLES Final Re sult Performing Organization Address [facility] de Phone Number [facility] [address] [place] [address] * (ABNORMAL) Lipid panel (08/08/2024 3:00 AM EST) Cholesterol 170 <200 mg/dL [facility] Comment: Optimal: ?<200 Borderline: ? 200-239 Higher Risk: ?>239 Triglycerides 149 <150 mg/dL [facility] Comment: Optimal: ?<150 Borderline High: ??150-199 High: ? 200-499 Very High: ?>499 HDL 60 >59 mg/dL [facility] Comment: Desirable: ?>59 Higher Risk: ?<40 LDL-Calc 80 <100 mg/dL [facility] Comment: Optimal: ?<100 Above Optimal: ?100-129 Borderline High: ??130-159 High: ? 160-189 Very High: ?>189 VLDL Cholesterol Hunter 30(A) <30 mg/dL [facility] Comment: Optimal: ?<30 Borderline High: ??30-39 High: ? 40-99 Very High: ?>99 Chol/HDL Ratio 2.8 <3.3 [facility] Comment: Optimal: ?<3.3 Higher Risk: ?>6.2 08/08/2024 3:00 AM EST 08/09/2024 1:17 PM EST us Anthony Norton MD LAB BLOOD ORDERABLES Final Re sult Performing Organization Address City/[facility]/ZIP Co de Phone Number [facility] [address] [place] [address] * LIH (08/08/2024 3:00 AM EST) Lipemia Normal Normal [facility] Icterus Normal Normal [facility] Hemolysis Normal Normal [facility] 08/08/2024 3:00 AM EST 08/09/2024 1:17 PM EST us Anthony Norton MD LAB [id number] SOLICITED RESULTS Final Result Performing Organization Address [facility] Co de Phone Number [facility] [address] [place] [address] * Lactate dehydrogenase (08/08/2024 3:00 AM EST) LDH 198 120 - 246 U/L [facility] 08/08/2024 3:00 AM EST 08/09/2024 1:17 PM EST Anthnoy Norton MD LAB BLOOD ORDERABLES Final Re sult Performing Organization Address [facility] Co de Phone Number [facility] [address] [place] [address] * (ABNORMAL) Glucose, random (08/08/2024 3:00 AM EST) Glucose 124(H) 74 - 109 mg/dL [facility] 08/08/2024 3:00 AM EST 08/09/2024 1:17 PM EST Anthony Norton MD LAB BLOOD ORDERABLES Final Re sult Performing Organization Address [facility] Phone Number [facility] [address] [place] [address] * Bilirubin, total (08/08/2024 3:00 AM EST) Total Bilirubin 0.3 0.3 - 1.2 mg/dL [facility] 08/08/2024 3:00 AM EST 08/09/2024 1:17 PM EST Anthony Norton MD LAB BLOOD ORDERABLES Final Re sult Performing Organization Address [facility] de Phone Number [facility] [address] [place] [address] * (ABNORMAL) Creatinine, serum (08/08/2024 3:00 AM EST) Creatinine 4.24(H) 0.55 - 1.02 mg/dL [facility] 08/08/2024 3:00 AM EST 08/09/2024 1:17 PM EST Anthony Norton MD LAB BLOOD ORDERABLES Final Re sult Performing Organization Address [facility] de Phone Number [facility] [address] [place] [address] * AST (08/08/2024 3:00 AM EST) AST (SGOT) 11 <34 U/L [facility] 08/08/2024 3:00 AM EST 08/09/2024 1:17 PM EST Anthony Norton MD LAB BLOOD ORDERABLES Final Re sult Performing Organization Address [facility] de Phone Number [facility] [address] [place] [address] * (ABNORMAL) ALT (08/08/2024 3:00 AM EST) ALT (SGPT) 8(L) 10 - 49 U/L [facility] 08/08/2024 3:00 AM EST 08/09/2024 1:17 PM EST us Anthony Norton MD LAB BLOOD ORDERABLES Final Re sult Performing Organization Address [facility] Phone Number [facility] [address] [place] [address] * (ABNORMAL) Calcium Phosphorus Product, Adjusted (08/08/2024 3:00 AM EST) Albumin 3.2(L) 3.6 - 5.4 g/dL [facility] Calcium 8.8 8.6 - 10.3 mg/dL [facility] Phosphorus, Serum 4.4 2.5 - 5.0 mg/dL [facility] Ca*PO4 38.7 <55.0 mg2/dL2 [facility] Calcium, Adjusted Total 9.4 8.6 - 10.3 mg/dL [facility] CA*PO4 CORRCTD 41.4 <55.0 mg2/dL2 [facility] 08/08/2024 3:00 AM EST 08/09/2024 1:17 PM EST us Anthony Norton MD LAB [id number] SOLICITED RESULTS Final Result Performing Organization Address [facility] de Phone Number [facility] [address] [place] [address] * Alkaline phosphatase (08/08/2024 3:00 AM EST) Alkaline Phosphatase 76 46 - 116 U/L [facility] 08/08/2024 3:00 AM EST 08/09/2024 1:17 PM EST us Anthony Norton MD LAB BLOOD ORDERABLES Final Re sult Performing Organization Address [facility] de Phone Number [facility] [address] [place] [address] * (ABNORMAL) Hepatitis B Surface Antibody (08/08/2024 3:00 AM EST) Pathologist [facility] Hep B Surface Antibody <4(A) mIU/mL [facility] Comment: Interpretation: <10: No Immunity >=10: Probable Immunity 08/08/2024 3:00 AM EST 08/09/2024 1:17 PM EST us Anthony Norton MD LAB BLOOD ORDERABLES Final Re sult Performing Organization Address [facility] de Phone Number [facility] [address] [place] [address] * (ABNORMAL) Ferritin (08/08/2024 3:00 AM EST) Pathologist [facility] Ferritin 1,209(H) 10 - 291 ng/mL [facility] 08/08/2024 3:00 AM EST 08/09/2024 1:17 PM EST us Anthony Norton MD LAB BLOOD ORDERABLES Final Re sult Performing Organization Address [facility] de Phone Number [facility] [address] [place] [address] * (ABNORMAL) PTH, Intact (08/08/2024 3:00 AM EST) Pathologist [facility] PTH, Intact 144(L) 160 - 721 pg/mL [facility] Comment: Suggested (KDIGO) ESRD maintenance range is two to nine times the upper normal limit (80.1 pg/mL) for the laboratory. 08/08/2024 3:00 AM EST 08/09/2024 1:17 PM EST Anhtony Norton MD LAB BLOOD ORDERABLES Final Re sult Performing Organization Address [facility] de Phone Number [facility] [address] [place] [address] * (ABNORMAL) Hemoglobin A1c (08/08/2024 3:00 AM EST) Hemoglobin A1C 6.3(H) <5.7 % [facility] Comment: Methodology: Enzymatic HbA1c (NGSP %) ?Suggested Diagnosis >6.4% ? Diabetic 5.7-6.4% ?Pre-Diabetic <5.7% ? Non-Diabetic Diabetic Glucose Control Evaluation: Therapeutic action suggested at >8.0% ADA recommends a glycemic goal of <7.0% 08/08/2024 3:00 AM EST 08/09/2024 1:15 PM EST Anthony Norton MD LAB BLOOD ORDERABLES Final Re sult Performing Organization Address [facility] de Phone Number [facility] [address] [place] [address] * (ABNORMAL) Kt/V Natural Log, URR (08/08/2024 3:00 AM EST) Treatment Time 185 min [facility] Pre-Weight, lb 70.1 kg [facility] Post-Weight, lb 69.1 kg [facility] Ultrafiltration Rate 5 <=13 mL/kg/hr [facility] Comment: Recommend achieving Ultrafiltration Rate (UFR) <=10 mL/kg/hr References: Krish PIERCE et al. Kidney Int. 2010; 79(2):250-257 BUN Post Dialysis 14 7 - 25 mg/dL [facility] BUN 61(H) 7 - 25 mg/dL [facility] UREA REDUCTION RATIO (%) 77 >=65 % [facility] Kt/V Natural Log 1.63 >=1.2 [facility] 08/08/2024 3:00 AM EST 08/09/2024 1:17 PM EST Anthony Norton MD LAB [id number] SOLICITED RESULTS Final Result [facility] [address] [place] [address] * (ABNORMAL) CBC and Differential (08/08/2024 3:00 AM EST) DIFFERENTIAL MANUAL, 2 Not Indicated [facility] White Blood Cells 8.5 4.0 - 10.0 K/uL [facility] RBC 3.07(L) 3.93 - 5.22 M/uL [facility] Hgb 8.2(L) 11.2 - 15.7 g/dL [facility] Hemoglobin x 3 24.6(L) 33.6 - 47.1 g/dL [facility] Hematocrit 26.7(L) 34.1 - 44.9 % [facility] MCV 87.0 79.4 - 94.8 fL [facility] MCH 26.7 25.6 - 32.2 pg [facility] MCHC 30.7(L) 32.2 - 35.5 g/dL [facility] Platelets 181(L) 182 - 369 K/uL [facility] RDW 22.0(H) 11.7 - 14.4 % [facility] Neutrophils Relative 78.4(H) 34.0 - 71.1 % [facility] Lymphocytes Relative 12.5(L) 19.3 - 51.7 % [facility] Monocytes 6.1 4.7 - 12.5 % [facility] Eosinophils Relative 1.8 0.7 - 5.8 % [facility] Basophils Relative 0.5 0.1 - 1.2 % [facility] Immature Granulocytes 0.7 0.0 - 1.0 % [facility] 08/08/2024 3:00 AM EST 08/09/2024 1:15 PM EST Anthony Norton MD LAB BLOOD ORDERABLES Final Re sult [facility] [address] [place] [address] documented in this encounter Visit Diagnoses Diagnosis ANCA associated vasculitis (HCC) 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) 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 documented in this encounter Care Teams Occupational Therapy Technician Relationship Specialty Start Date End Date Marie Vázquezmana [address] [place] [id number] PCP - General Internal Medicine 07/11/24 documented as of this encounter
--- OUTSIDE RECORDS SUMMARY | 2024-08-16 06:30 | XMS_ITS | Clinical Summary ---
Author Organization [facility] Address [address] [address] Phone Care Team Providers Care Children Librarian Name Role Phone Eloisa Vázquez Primary Care Provider [phone] Encounters Date Type Department Care Team Description 08/11/2024 Orders Only [facility] [address] [address] Anthony Norton MD ANCA associated vasculitis (HCC); 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) 08/08/2024 Treatment [facility] [address] [place] [phone] Anthony Norton MD 08/08/2024 Office Communication [facility] [address] [address] Anthony Norton MD ANCA associated vasculitis (HCC) (Primary Dx); 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) 07/28/2024 Telephone [facility] [address] [address] Maggy Mcgarry from Last 3 Months [...] ars (1 of 2 - PCV) 1951 Hepatitis B Vaccine (1 of 5 - Risk Dialysis 4-dose series) 1963 Influenza Vaccine (#1) 2024 Diabetes: Ophthalmology Exam 08/08/2024 Diabetes: Pedal Pulse Checked 08/08/2024 Diabetes: Sensory Foot Exam 08/08/2024 Diabetes: Visual Foot Exam 08/08/2024 Diabetes: Hemoglobin A1C 11/05/2024 08/08/2024, 12/0 08/2023 Procedures Procedure Name Priority Date/Time Associated Diagnosis Comments LIH (HC) Routine 08/10/2024 3:00 AM EST GLUCOSE, RANDOM Routine 08/10/2024 3:00 AM EST BASIC METABOLIC PANEL BUNDLED (HC) Routine 08/10/2024 3:00 AM EST ALUMINUM LEVEL Routine 08/08/2024 3:00 AM EST HEPATITIS B CORE AB TOTAL Routine 08/08/2024 3:00 AM EST CONFIRMATION TEST HCV Routine 08/08/2024 3:00 AM EST HEPATITIS C ABS W/REFLEX RNA DETECTR Routine 08/08/2024 3:00 AM EST HEPATITIS B SURFACE ANTIGEN W/REFL CONFIRM Routine 08/08/2024 3:00 AM EST VITAMIN D 25 HYDROXY Routine 08/08/2024 3:00 AM EST URIC ACID Routine 08/08/2024 3:00 AM EST TRANSFERRIN SATURATION Routine 3:00 AM EST PROTEIN, TOTAL, SERUM Routine 08/08/2024 3:00 AM EST ELECTROLYTE PANEL Routine 08/08/2024 3:0 0 AM EST MAGNESIUM Routine 08/08/2024 3:00 AM EST LIPID PANEL Routine 08/08/2024 3:00 AM EST LIH (HC) Routine 08/08/2024 3:00 AM EST LACTATE DEHYDROGENASE Routine 08/08/2024 3:00 AM EST GLUCOSE, RANDOM Routine 08/08/2024 3:00 AM EST BILIRUBIN, TOTAL Routine 08/08/2024 3:00 AM EST CREATININE, SERUM Routine 08/08/2024 3:0 0 AM EST AST Routine 08/08/2024 3:00 AM EST ALT Routine 08/08/2024 3:00 AM EST CALCIUM PHOSPHORUS PRODUCT, ADJUSTED (HC) Routine 08/08/2024 3:00 AM EST ALKALINE PHOSPHATASE Routine 08/08/2024 3:00 AM EST HEPATITIS B SURFACE ANTIBODY QUANT Routine 08/08/2024 3:00 AM EST FERRITIN Routine 08/08/2024 3:00 AM EST PTH, INTACT Routine 08/08/2024 3:00 AM EST HEMOGLOBIN A1C Routine 08/08/2024 3:00 AM EST KT/V NATURAL LOG, URR (HC) Routine 08/08/2024 3:00 AM EST CBC AND DIFFERENTIAL Routine 08/08/2024 3:00 AM EST from Last 3 Months Results * (ABNORMAL) Basic Metabolic Panel Bundled (08/10/2024 [...] 3:00 AM EST 08/11/2024 2:52 PM EST us Anthony Norton MD LAB [id number] SOLICITED RESULTS Final Result Performing Organization Address [facility] de Phone Number [facility] [address] [place] [address] * LIH (08/10/2024 3:00 AM EST) Only the most recent of2 resultswithin the time period is included. Lipemia Normal Normal [facility] Icterus Normal Normal [facility] Hemolysis Normal Normal [facility] 08/10/2024 3:00 AM EST 08/11/2024 2:52 PM EST us Anthony Norton MD LAB [id number] SOLICITED RESULTS Final Result Performing Organization Address [facility] de Phone Number [facility] [address] [place] [address] * (ABNORMAL) Glucose, random (08/10/2024 3:00 AM EST) Only the most recent of2 resultswithin the time period is included. Glucose 232(H) 74 - 109 mg/dL [facility] 08/10/2024 3:00 AM EST 08/11/2024 2:52 PM EST us Anthony Norton MD LAB BLOOD ORDERABLES Final Re sult Performing Organization Address [facility] de Phone Number [facility] [address] [place] [address] * Confirmation Test HCV (08/08/2024 3:00 AM EST) Hep C Ab Confirmation Not needed [facility] 08/08/2024 3:00 AM EST 08/09/2024 1:15 PM EST Anthony Norton MD LAB BLOOD ORDERABLES Final Re sult Performing Organization Address [facility] Co de Phone Number [facility] [address] [place] [address] * (ABNORMAL) Kt/V Natural Log, URR (08/08/2024 [...] 1:17 PM EST Anthony Norton MD LAB [id number] SOLICITED RESULTS Final Result Performing Organization Address [facility] de Phone Number [facility] [address] [place] [address] * (ABNORMAL) Calcium Phosphorus Product, Adjusted (08/08/2024 [...] 1:17 PM EST Anthony Norton MD LAB [id number] SOLICITED RESULTS Final Result Performing Organization Address [facility] de Phone Number [facility] [address] [place] [address] * HEPATITIS C ABS W/REFLEX RNA DETECTR (08/08/2024 3:00 AM EST) Pathologist [facility] Hep C Virus Ab Non-Reacti ve Non-Reacti ve [facility] 08/08/2024 3:00 AM EST 08/09/2024 1:17 PM EST Anthony Norton MD LAB [id number] SOLICITED RESULTS Final Result Performing Organization Address [facility] de Phone Number [facility] [address] [place] [address] * Hepatitis B Surface Ag w/Reflex Confirmation (08/08/2024 3:00 AM EST) Pathologist [facility] Hep B Surface Antigen Negative Negative [facility] 08/08/2024 3:00 AM EST 08/09/2024 1:17 PM EST Anthony Norton MD LAB BLOOD ORDERABLES Final Re sult Performing Organization Address [facility] de Phone Number [facility] [address] [place] [address] * (ABNORMAL) TSAT (08/08/2024 3:00 AM EST) Pathologist [facility] Iron 34(L) 50 - 170 ug/dL [facility] Transferrin 126(L) 250 - 380 mg/dL [facility] TIBC 176(L) 211 - 406 ug/dL [facility] Iron Saturation (TSat) 19(L) 22 - 52 % [facility] 08/08/2024 3:00 AM EST 08/09/2024 1:17 PM EST us Anthony Norton MD LAB BLOOD ORDERABLES Final Re sult Performing Organization Address [facility] Phone Number [facility] [address] [place] [address] * Hepatitis B Core Antibody, Total (08/08/2024 3:00 AM EST) HBc Total Ab, S Negative Negative [facility] 08/08/2024 3:00 AM EST 08/09/2024 1:17 PM EST Anthony Norton MD LAB BLOOD ORDERABLES Final Re sult Performing Organization Address [facility] Phone Number [facility] [address] [place] [address] * Aluminum level (08/08/2024 3:00 AM EST) Pathologist [facility] Aluminum 4 1 - 20 ug/L [facility] 08/08/2024 3:00 AM EST 08/09/2024 1:21 PM EST Anthony Norton MD LAB BLOOD ORDERABLES Final Re sult Performing Organization Address [facility] Phone Number [facility] [address] [place] [address] * Vitamin D 25 Hydroxy (08/08/2024 3:00 AM EST) Vitamin D, 25-Hydroxy 38 30 - 100 ng/mL [facility] Comment: Status ? Adult ?? Pediatric Deficient: ? <20 ? <15 Insufficient: ??20-29 ?? 15-19 Sufficient: ?30-100 ??20-100 08/08/2024 3:00 AM EST 08/09/2024 1:17 PM EST us Anthony Norton MD LAB BLOOD ORDERABLES Final Re sult Performing Organization Address [facility] Co de Phone Number [facility] [address] [place] [address] * (ABNORMAL) Hepatitis B Surface Antibody (08/08/2024 3:00 AM EST) Pathologist [facility] Hep B Surface Antibody <4(A) mIU/mL [facility] Comment: Interpretation: <10: No Immunity >=10: Probable Immunity 08/08/2024 3:00 AM EST 08/09/2024 1:17 PM EST us Anthony Norton MD LAB BLOOD ORDERABLES Final Re sult Performing Organization Address [facility] de Phone Number [facility] [address] [place] [address] * (ABNORMAL) CBC and Differential (08/08/2024 3:00 AM EST) Pathologist [facility] DIFFERENTIAL MANUAL, 2 Not Indicated [facility] White [...] 3:00 AM EST 08/09/2024 1:15 PM EST us Anthony Norton MD LAB BLOOD ORDERABLES Final Re sult Performing Organization Address [facility] Co de Phone Number [facility] [address] [place] [address] * Uric Acid (08/08/2024 3:00 AM EST) Uric Acid 5.0 2.3 - 6.6 mg/dL [facility] 08/08/2024 3:00 AM EST 08/09/2024 1:17 PM EST us Anthony Norton MD LAB BLOOD ORDERABLES Final Re sult Performing Organization Address [facility] Phone Number [facility] [address] [place] [address] * (ABNORMAL) ALT (08/08/2024 3:00 AM EST) ALT (SGPT) 8(L) 10 - 49 U/L [facility] 08/08/2024 3:00 AM EST 08/09/2024 1:17 PM EST us Anthony Norton MD LAB BLOOD ORDERABLES Final Re sult Performing Organization Address [facility] de Phone Number [facility] [address] [place] [address] * AST (08/08/2024 3:00 AM EST) AST (SGOT) 11 <34 U/L [facility] 08/08/2024 3:00 AM EST 08/09/2024 1:17 PM EST us Anthony Norton MD LAB BLOOD ORDERABLES Final Re sult Performing Organization Address [facility] de Phone Number [facility] [address] [place] [address] * (ABNORMAL) Protein, total (08/08/2024 3:00 AM EST) Total Protein 5.7(L) 6.4 - 8.9 g/dL [facility] 08/08/2024 3:00 AM EST 08/09/2024 1:17 PM EST Anthony Norton MD LAB BLOOD ORDERABLES Final Re sult Performing Organization Address [facility] de Phone Number [facility] [address] [place] [address] * Alkaline phosphatase (08/08/2024 3:00 AM EST) Pathologist [facility] Alkaline Phosphatase 76 46 - 116 U/L [facility] 08/08/2024 3:00 AM EST 08/09/2024 1:17 PM EST Anthony Norton MD LAB BLOOD ORDERABLES Final Re sult Performing Organization Address [facility] de Phone Number [facility] [address] [place] [address] * (ABNORMAL) PTH, Intact (08/08/2024 3:00 AM EST) Pathologist [facility] PTH, Intact 144(L) 160 - 721 pg/mL [facility] Comment: Suggested (KDIGO) ESRD maintenance range is two to nine times the upper normal limit (80.1 pg/mL) for the laboratory. 08/08/2024 3:00 AM EST 08/09/2024 1:17 PM EST us Anthony Norton MD LAB BLOOD ORDERABLES Final Re sult Performing Organization Address [facility] de Phone Number [facility] [address] [place] [address] * Magnesium (08/08/2024 3:00 AM EST) Pathologist [facility] Magnesium 1.9 1.9 - 2.7 mg/dL [facility] 08/08/2024 3:00 AM EST 08/09/2024 1:17 PM EST Anthony Norton MD LAB BLOOD ORDERABLES Final Re sult Performing Organization Address [facility] de Phone Number [facility] [address] [place] [address] * Lactate dehydrogenase (08/08/2024 3:00 AM EST) LDH 198 120 - 246 U/L [facility] 08/08/2024 3:00 AM EST 08/09/2024 1:17 PM EST Anthony Norton MD LAB BLOOD ORDERABLES Final Re sult Performing Organization Address [facility] de Phone Number [facility] [address] [place] [address] * (ABNORMAL) Hemoglobin A1c (08/08/2024 3:00 AM [...] ORDERABLES Final Re sult Performing Organization Address [facility] de Phone Number [facility] [address] [place] [address] * (ABNORMAL) Ferritin (08/08/2024 3:00 AM EST) Ferritin 1,209(H) 10 - 291 ng/mL [facility] 08/08/2024 3:00 AM EST 08/09/2024 1:17 PM EST Anthony Norton MD LAB BLOOD ORDERABLES Final Re sult Performing Organization Address [facility] de Phone Number [facility] [address] [place] [address] * (ABNORMAL) Creatinine, serum (08/08/2024 3:00 AM EST) Creatinine 4.24(H) 0.55 - 1.02 mg/dL [facility] 08/08/2024 3:00 AM EST 08/09/2024 1:17 PM EST Anthony Norton MD LAB BLOOD ORDERABLES Final Re sult Performing Organization Address [facility] de Phone Number [facility] [address] [place] [address] * Bilirubin, total (08/08/2024 3:00 AM EST) Total Bilirubin 0.3 0.3 - 1.2 mg/dL [facility] 08/08/2024 3:00 AM EST 08/09/2024 1:17 PM EST Anthony Norton MD LAB BLOOD ORDERABLES Final Re sult Performing Organization Address [facility] Phone Number [facility] [address] [place] [address] * (ABNORMAL) Lipid panel (08/08/2024 3:00 AM [...] ORDERABLES Final Re sult Performing Organization Address [facility] de Phone Number [facility] [address] [place] [address] * Electrolyte panel (08/08/2024 3:00 AM EST) [...] ORDERABLES Final Re sult Performing Organization Address [facility] de Phone Number [facility] [address] [place] [address] from Last 3 Months Insurance [facility] [employer] Care Teams Children Librarian Relationship Specialty Start Date End Date Eloisa Vázquez [address] [place] [address] PCP - General Internal Medicine 07/11/24
--- OUTSIDE RECORDS SUMMARY | 2024-08-16 06:30 | XMS_ITS | Encounter Summary ---
Author Organization [facility] Address [address] [place] [address] Care Team Providers Care Curing Oven Tender Name Role Phone Eloisa Vázquez DO Primary Care Provider [phone] Reason for Referral * Imaging (Routine) - Pending Review Specialty Diagnoses / Procedures Referred By Daksha godoy Referred To Contact Radiology Diagnoses Pulmonary nodule Procedures CT Chest wo Contrast Cecily Montez MD [address] [address] Phone: tel: fax: [facility] [address] [place] [address] Phone: tel: Referral ID Status Reason Start Date Expiration Date V isits Requested Visits Authorized [id number] Pending Review 08/15/2024 08/15/2025 1 1 Reason for Visit * Reason Comments Post-op Visit Encounter Details Date Type Department Care Team ([facility] st Contact Info) Description 08/15/2024 1:30 PM EST Office Visit Thoracic Surgery - [place] [address] [place] [phone] Cecily Montez MD [address] [place] [address] Pulmonary nodule (Primary Dx); Lung mass Social History Tobacco Use Types Packs/Day Years [...] Sign Reading Time Taken Comments Blood Pressure 157/74 08/15/2024 1:31 PM EST Pulse 102 08/15/2024 1:31 PM EST Temperature 36.5 ??C (97.7 ??F) 08/15/2024 1:31 PM ES T Respiratory Rate 20 08/15/2024 1:31 PM EST Oxygen Saturation 93% 08/15/2024 1:31 PM EST Inhaled Oxygen Concentration - - Weight - - Height 162.6 cm (5' 4 ) 08/15/2024 1:31 PM EST Body Mass Index - - documented in this encounter Functional Status * [...] documented in this encounter Progress Notes * Cecily Montez MD - 08/15/2024 1:48 PM ESTAssociated Problem(s): Pulmonary nodule 79-year-old woman with recent end-stage renal disease on dialysis now recently discharged from the hospital after a lengthy stay. She did have navigation bronchoscopy/EBUS during that stay on 08/05/2024 which brushings were negative for malignancy with some atypical cells but nondiagnostic and. Mediastinal and hilar lymph nodes were negative for malignancy. Had a long discussion with the patient and her daughter about all of the imaging testing that has been done as well as the pathology results as described in HPI. I do think given her current clinical state best thing to do would be to follow-up with a CT scan of the chest in 3 months and have a visit with me after that. I did briefly also discussed the option of a repeat biopsy and surgery but I think these would be a little bit too muchfor her this point. All questions were answered. * Cecily Montez MD - 08/15/2024 1:30 PM EST Thoracic Pathology Review Patient name Ana Contreras 1945 Date of Visit: 08/15/2024 Care Team .Eloisa Vázquez DO Reason for Visit: Chief Complaint Patient presents with Post-op Visit Date of procedure: 08/05/2024 Type of procedure performed: Navigational bronchoscopy/EBUS Hospital procedure was performed: [facility] HPI Ms. Contreras is a 79 y.o. female who presents to our office to review their pathology results following navigational bronchoscopy/EBUS. 79-year-old woman non-smoker never smoker who over the summer did have COVID and ultimately got an abdominal CT for some abdominal pain in February which showed some inflammatory looking pulmonary nodules in the bilateral lower lobes. She has also had extreme fatigue and has iron deficiency anemiawith most recent hematocrit being 28. The abdominal CT was followed up quite appropriately with a CT scan of the chest done in February 2024 reviewed and interpreted by me directly which shows a right upper lobe masslike consolidation and again scattered pulmonary nodules inferiorly that do appearto be more inflammatory. A PET scan was then done on 05/03/2024 which showed increased PET uptake inthe right upper lobe lung mass without significant to my eye increased uptake elsewhere. She did have a CT-guided biopsy on 05/23/2024 which unfortunately was nondiagnostic. They did have a lot of questions about whether the anemia and this lung mass or nodules were related. Unfortunately she was recently admitted to the hospital with kidney failure and is now on dialysis and spent several weeks in the hospital and is at a rehab facility now. While she was in the hospital we did end up rescheduling her biopsy with navigational bronchoscopy/EBUS which happened on 08/05/2024. FNA and brushings were negative for malignancy. On the washings there were some atypical cells although this is not diagnostic. Right paratracheal 11 R- for malignancy with good sampling of the left paratracheal lymph node was nondiagnostic. She tolerated the procedure well and had no hemoptysis, new chest pain, or shortness of breath. She does deny unintentional weight loss but does report significant fatigue as above for the past 6months. She denies chest pain cough or hemoptysis. She does report shortness of breath with activity. She denies any new neurologic symptoms. Past Medical History: Diagnosis Date Anemia Arthritis [...] nodule Microalbuminuria 09/22/2016 DX:Microalbuminuria Osteoporosis 02/14/2014 DX:Osteoporosis No Known Allergies Current Outpatient Medications Medication Sig Dispense Refill apixaban (ELIQUIS) 5 mg tablet Take 2 tablets (10 mg total) by mouth 2 (two) times a day for 3 days, THEN 1 tablet (5 mg total) 2 (two) times a day. B complex-vitamin C-folic acid (NEPHRO-SAVITA) 0.8 mg tablet Take 1 tablet by mouth 1 (one) time eachday. cetirizine (ZyrTEC) 10 mg chewable tablet Take [...] TABLETBY MOUTH IN THE AFTERNOON (WITH MEALS) 300 tablet 1 pantoprazole (PROTONIX) 40 mg EC tablet Take 1 tablet (40 mg total) by mouth 1 (one) time each day before breakfast. Do not crush, chew, or split. polyethylene glycol (MIRALAX) 17 gram packet Take 17 g by mouth 1 (one) time each day if needed forconstipation. predniSONE (DELTASONE) 20 mg tablet Take 3 tablets (60 mg total) by mouth 1 (one) time each day. simvastatin (ZOCOR) 20 mg tablet Take 1 tablet (20 mg total) by mouth every night at bedtime sulfamethoxazole-trimethoprim (BACTRIM DS,SEPTRA DS) 800-160 mg per tablet Take 1 tablet by mouth 3(three) times a week for 16 doses. thiamine (VITAMIN B-1) 100 mg tablet Take 1 tablet (100 mg total) by mouth 1 (one) time each day. No current facility-administered medications for this visit. 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 [employer] Family History Problem Relation Name Age of [...] Known Problems Sister No Known Problems Sister ROS General - Negative for: weight loss/gain, fatigue, fever, chills, weakness, difficulty sleeping Head - Negative for: headache, trauma Eyes - Negative for: acute vision change, blurred vision, double vision, eye pain, conjunctival erythema, eyelid pain/swelling/erythema Ears - Negative for: acute change in hearing, tinnitus, ear pain, ear drainage Nose - Negative for: nasal discharge, nosebleed, itching, sinus pain Mouth/Throat - Negative for: sore throat, swollen throat, dry mouth, hoarseness, dysphagia, odynophagia, oral lesions Neck - Negative for: pain, stiffness, swelling, mass/lumps, swollen glands Cardiovascular - Negative for: chest pain/pressure, exertional chest pain, palpitations, lightheadedness, dizziness, orthopnea, extremity edema Respiratory -as above Gastrointestinal - Negative for: abdominal pain, abdominal distention, bloating, nausea, vomiting, early satiety, diarrhea, constipation, BRBPR, melena, poor appetite Genitourinary - Negative for: dysuria, hematura, urinary frequency, urinary urgency, incontinence Musculoskeletal - Negative for: muscle or joint pain, stiffness, back pain, joint swelling or erythema Neurologic - Negative for: dizziness, seizures, weakness, numbness, tingling, tremor, dysarthria, facial droop Hematologic - Negative for: easy bruising, easy bleeding, ecchymosis, petechiae Endocrine - Negative for: polyuriua, polydipsia, heat or cold intolerance Lymphatic - Negative for: swollen nodes, unexplained lumps/bumps in neck/axillae/groin Skin - Negative for: rashes, lumps, itching, dryness, color change, hair/nail changes Psychiatric - Negative for: depression, anxiety, nervousness, stress, memory change, SI/HI Physical Exam Vitals: 08/15/24 1331 BP: (!) 157/74 Pulse: 102 Resp: 20 Temp: 36.5 ??C (97.7 ??F) TempSrc: Temporal SpO2: 93% Height: 1.626 m (64 ) General: Patient is sitting comfortably in no acute distress, well developed, well nourished Head: Normocephalic, atraumatic, symmetric Eyes: Sclera anicteric, eyelids without edema or erythema, +EOMS intact ENT: Oral mucosa and tongue are moist without lesions or exudates Neck: Soft, supple, symmetric, trachea midline, no crepitus, no mass visualized or palpated Cardiovascular: Regular rate and rhythm, no murmur/rubs/gallops, BUE and BLE without edema, no calftenderness bilaterally Respiratory: Lungs CTA B, breathing nonlabored, speaking in full sentences, on room air. No use of accessory muscles. No obvious chest wall abnormality or deformity. Gastrointestinal: Soft, non-tender, non-distended, +normoactive bowel sounds. Lymphatic: no cervical, supraclavicular, infraclavicular, or other lymphadenopathy noted Neurological: Alert and oriented x 3, neurologic exam is grossly normal Psychiatric: No agitation, appropriate affect Pathology: Reviewed in detail with the patient as above Micro / Labs: Reviewed Radiology reviewed and interpreted by me directly as above I personally viewed the following imaging studies, in addition to reviewing the dictated report from the reading radiologist Assessment/Plan: Problem List Items Addressed This Visit Respiratory Lung mass Pulmonary nodule - Primary 79-year-old woman with recent end-stage renal disease on dialysis now recently discharged from the hospital after a lengthy stay. She did have navigation bronchoscopy/EBUS during that stay on 08/05/2024 which brushings were negative for malignancy with some atypical cells but nondiagnostic and. Mediastinal and hilar lymph nodes were negative for malignancy. Had a long discussion with the patient and her daughter about all of the imaging testing that has been done as well as the pathology results as described in HPI. I do think given her current clinical state best thing to do would be to follow-up with a CT scan of the chest in 3 months and have a visit with me after that. I did briefly also discussed the option of a repeat biopsy and surgery but I think these would be a little bit too muchfor her this point. All questions were answered. Relevant Orders CT Chest wo Contrast Total time spent on date of this encounter: 33 minutes Reviewing patient's chart, Independently reviewing current/past imaging, Visit with the patient, Counseling and educating patient/family on diagnosis, Discussion of ongoing management, and Documenting clinical information in the patient's medical record Cecily Montez MD on 08/15/2024 at 1:49 PM EST CC: Jaime Grimaldo MD Jumana Jaloudi, DO documented in this encounter Plan of Treatment Upcoming Encounters Date Type Department Care Team (Late st Contact Info) Description 08/23/2024 3:00 PM EST Office Visit Gastroenterology - [address] [phone] Josiane Smith, STRETCHER LEVELER OPERATOR HELPER [address] [address] 08/24/2024 11:15 AM EST [facility] [address] [place] [address] Eloisa Vázquez DO [address] [place] [address] 09/05/2024 10:00 AM EDT Office Visit Endocrinology - [place] [address] [place] [address] Kathy Michelle PA [address] [place] [address] 09/06/2024 11:00 AM EDT [address] Procedure [facility] [address] [facility] [address] [place] [address] Scheduled Orders Name Type Priority Associated Diagnoses Orde r Schedule CT Chest wo Contrast Imaging Routine Pulmonary nodule Expected: 11/12/2024, Expires: 08/15/2025 documented as of this encounter Visit Diagnoses Diagnosis Pulmonary nodule- Primary Other diseases of lung, not elsewhere classified Lung mass Swelling, mass, or lump in chest documented in this encounter Additional Health Concerns Infection Onset Date Last Indicated Resolved Time Tuberculosis Rule-Out 08/05/2024 08/05/2024 documented as of this encounter Care Teams Curing Oven Tender Relationship Specialty Start Date End Date Eloisa Vázquez DO [address] [place] [address] PCP - General 04/12/24 documented as of this encounter
--- OUTSIDE RECORDS SUMMARY | 2024-08-16 06:30 | XMS_ITS | Encounter Summary ---
Author Organization [facility] Address [address] [place] [address] Care Team Providers Care Manager Nursing Name Role Phone Marie Vázquezmankamryn CHERY Primary Care Provider [phone] Encounter Details Date Type Department Care Team (Late st Contact Info) Description 04/12/2024 1:41 PM EDT Hospital Encounter TH HISTORIC ENCOUNTERS EASTERN CONVERSION ONLY Jaime Grimaldo MD [address] [place] [id number] Social History Tobacco Use Types Packs/Day Years Used Date Smoking Tobacco: Never Assessed Interpersonal Safety Answer Date Record ed Physical [...] Blood Pressure 126/42 04/12/2024 2:05 PM EDT Sit ting Left arm Pulse 104 04/12/2024 2:05 PM EDT Temperature - - Respiratory Rate - - Oxygen Saturation - - Inhaled Oxygen Concentration - - Weight 80.3 kg (177 lb) 04/12/2024 2:05 PM EDT Height 165.1 cm (5' 5 ) 04/12/2024 2:05 PM EDT Body Mass Index 29.45 04/12/2024 2:05 PM EDT documented in this encounter Progress Notes * Jaime Grimaldo MD - 04/12/2024 2:00 PM EDT Dear Eloisa, Thank you very much for referring this patient for consultation. HPI: Patient is a very pleasant 79-year-old female, who has multiple medical issues, in summerof this year while she was in [place] developed some respiratory infection/COVID, patient also have some upset stomach and underwent abdominal CAT scan that showed some suspicious pulmonary nodule on the base of the lung, patient was subsequently seen by PCP and underwent full CT scan of the chestlast month, CT scan showed multiple pulmonary nodules, right upper lobe consolidation and bronchiectasis, suspicious for malignant process. Patient referred to me for further evaluation ROS: GENERAL: No significant anorexia or weight loss, has mild fatigue at times HEENT no headache, she is legally blind NECK: No lumps, goiter, pain or significant neck swelling RESPIRATORY: She has chronic cough since summer because of COVID infection though it is getting better CARDIOVASCULAR: No chest pain. GI: No abdominal discomfort, blood in stools or black stools MUSCULOSKELETAL: No new unusual aches and pain HEMATOLOGY/LYMPHOLOGY No prolonged bleeding, easy bruisability or swollen nodes Other Systems review is non contributory PAST MEDICAL HISTORY: Type 2 diabetes Hypertension Dyslipidemia Anemia Osteoporosis Obesity Diabetic retinopathy/legally blind COVID-19 infection PAST SURGICAL HISTORY: SOCIAL HISTORY: She never smoke She drinks wine with a dinner She lives by herself Her son is involved in her care FAMILY HISTORY: Noncontributory MEDICATIONS: Current Outpatient Medications: ??? calcium carbonate (Calcium 600) 600 MG tablet, Take 1 tablet (600 mg total) by mouth daily., Disp: , Rfl: ??? cetirizine (ZyrTEC) 10 MG tablet, Take 1 tablet (10 mg total) by mouth daily., Disp: , Rfl: ??? CRANBERRY PO, Take by mouth., Disp: , Rfl: ??? ferrous sulfate 325 (65 FE) MG tablet, Take 1 tablet (325 mg total) by mouth every morning withbreakfast., Disp: , Rfl: ??? glipiZIDE (GLUCOTROL XL) ER 24 hr tablet 5 mg, Take 1 tablet (5 mg total) by mouth daily., Disp: , Rfl: ??? lisinopril (PRINIVIL,ZESTRIL) tablet 10 mg, Take 1 tablet (10 mg total) by mouth daily., Disp: , Rfl: ??? metFORMIN (GLUCOPHAGE) tablet 500 mg, Take 2 tablets (1,000 mg total) by mouth 2 (two) times a day with meals., Disp: , Rfl: ??? Multiple Vitamins-Minerals (MULTI-SAVITA PO), Take by mouth., Disp: , Rfl: ??? simvastatin (ZOCOR) tablet 20 mg, Take 1 tablet (20 mg total) by mouth every night at bedtime.,Disp: , Rfl: You are allergic to the following Date Reviewed: 04/12/2024 No active allergies PHYSICAL EXAM: BP 126/42 (BP Location: Left arm) Pulse 104 Temp 98.1 ??F (36.7 ??C) (Temporal) Ht 5' 5 (1.651 m) Wt 80.3 kg (177 lb) SpO2 100% BMI 29.45 kg/m?? ECOG 1 APPEARANCE: Alert and oriented in no acute distress, moderately obese EYES: nonicteric sclera pink conjunctiva, legally blind ORAL CAVITY: No thrush or mucositis NECK: Neck supple, no cervical and supraclavicular adenopathy, HEART: S1-S2 with some tachycardia LUNG: Distant breath sounds was clear bilaterally LYMPH NODES: No palpable superficial adenopathy ABDOMEN: Obese, soft, nontender and no organomegaly appreciated. EXTREMITIES: Trace edema of lower extremity LABS: CT scan of the chest showed multiple bilateral lung nodules, most likely/suspicious for metastatic disease, there is right upper lobe lung consolidation and bronchiectasis ASSESSMENT SNOMED CT(R) 1. Pulmonary nodules MULTIPLE NODULES OF LUNG Patient is a pleasant 79-year-old female who never smoked (may had some secondhand smoking many years ago), this summer patient had COVID-19 infection/some abdominal issues, was seen by a physician in [place] (in urgent care clinic), CT scan of abdomen showed some nodules suspicious for malignancy in the base of the lung so patient scheduled for full CT scan of the chest last month that showed bilateral pulmonary nodule suspicious for malignancy. Though patient noticed that in last few weeks her cough has significantly improved, there is a possibility this could be infectious process but possibility of malignant neoplasm cannot be completely ruled out. Patient is appropriately see ing Dr. Anderson and pulmonary consult in next few days, I told patient I would like to do PET scan as soon as possible, if possible prior to seeing Dr. Anderson, I told patient if PET scan is suspicious then tissue sampling is the next step that can be done by different intervention (surgically/nonsurgical less invasive procedure) I told patient and her son that in non-smoker woman if it is a lung cancer there is an approximately 20% chance we may find some favorable molecular marker for targeted therapy but important thing is to figure it out the definite etiology of the suspicious bilateral pulmonary nodule PLAN: My office will schedule PET scan Patient be seeing Dr. Anderson in next week I will see her back next month Jaime Grimaldo MD cc: Eloisa Vázquez DO documented in this encounter Plan of Treatment Upcoming Encounters Date Type Department Care Team (Late st Contact Info) Description 08/23/2024 3:00 PM EST Office Visit Gastroenterology - [address] [place] [address] [facility] [address] [place] [phone] Josiane Smith NP [address] [place] [address] 08/24/2024 11:15 AM EST Office Visit Internal Medicine - [facility] [address] [place] [address] Eloisa Vázquez DO [address] [place] [address] 09/05/2024 10:00 AM EDT Office Visit Endocrinology - [place] [address] [place] [address] Kathy Michelle PA [address] [place] [address] 09/06/2024 11:00 AM EDT Ancillary Procedure [facility] - [address] [place] [address] [place] [address] documented as of this encounter Procedures Procedure Name Priority Date/Time Associated Diagnosis Comments HISTORICAL IMAGING SCAN RESULT 04/12/2024 ..MISCELLANEOUS REFERENCE LAB TEST 04/12/2024 documented in this encounter Results * Miscellaneous reference lab test (04/12/2024) us Provider Onbase MD LAB BLOOD ORDERABLES Final Re sult * HISTORICAL IMAGING SCAN RESULT (04/12/2024) Anatomical Region Laterality Modality Ultrasound us Provider Onbase MD IMG US PROCEDURES Final Resul t documented in this encounter Visit Diagnoses Not on filedocumented in this encounter Additional Health Concerns Infection Onset Date Last Indicated Resolved Time Respiratory Rule-Out 07/08/2024 07/08/2024 025 4:18 PM EST COVID-19 Rule-Out 07/08/2024 07/08/2024 07/08/2024 4:18 PM EST Tuberculosis Rule-Out 08/05/2024 08/05/2024 documented as of this encounter Care Teams Manager Nursing Relationship Specialty Start Date End Date Eloisa Vázquez DO [address] [place] [address] PCP - General 04/12/24 documented as of this encounter
--- OUTSIDE RECORDS SUMMARY | 2024-08-16 06:30 | XMS_ITS | Encounter Summary ---
Author Organization [facility] Address [address] [place] [address] Care Team Providers Care Forestry Fire Aid Name Role Phone Eloisa Vázquez DO Primary Care Provider [phone] Reason for Visit * Reason Comments Follow-up Encounter Details Date Type Department Care Team (Late st Contact Info) Description 08/10/2024 10:00 AM EST Office Visit [facility] Hematology Oncology [address] [place] [phone] Jaime Grimaldo MD [address] [place] [address] Lung mass (Primary Dx); Normocytic anemia; Chronic renal failure, stage 5 (CMS/HCC) Social History Tobacco Use Types Packs/Day Years [...] Sign Reading Time Taken Comments Blood Pressure 151/68 08/10/2024 9:34 AM EST Pulse 95 08/10/2024 9:34 AM EST Temperature 36.6 ??C (97.8 ??F) 08/10/2024 9:34 AM ES T Respiratory Rate - - Oxygen Saturation 100% 08/10/2024 9:34 AM EST Inhaled Oxygen Concentration - - Weight - - Height - - Body Mass Index - - documented in [...] Progress Notes * Jaime Grimaldo MD - 08/10/2024 10:00 AM EST ONC CANCER FOLLOW UP CHIEF COMPLAINT: Follow-up IDENTIFIER:Ana Contreras is a 79 y.o. female. HPI: Patient is an 79-year-old woman who has no significant history of smoking who had COVID-19 infection and pneumonia last year and on CT scan patient found to have suspicious nodules, especially in theright upper lung as well as lower lung nodule, PET scan showed significant FDG activity in the right upper lung nodule, last year was inconclusive. Lasted year decision made to continue to watch and r epeat scan earlier in 2024, patient hospitalized few weeks ago had a prolonged hospitalization for renal failure and has been on hemodialysis, patient during hospitalization had CT scan that showed no significant change in pulmonary nodule size, patient also had another attempt of tissue sampling of lung mass, which was inconclusive for malignancy, patient is here to discuss about further intervention ROS: Patient has been in long-term facility Patient has been getting hemodialysis 3 times a week Patient have no chest pain, significant shortness of breath, hemoptysis etc. PAST MEDICAL HISTORY: Patient Active Problem List Diagnosis Hypertension Hyperlipidemia History of cancer of unknown primary site CKD (chronic kidney disease) stage 4, GFR 15-29 ml/min ([facility]) Iron deficiency anemia Impaired renal function Type 2 diabetes mellitus without complication, without long-term current use of insulin (CMS/[facility]) Lung mass Pulmonary nodule Past Medical History: Diagnosis Date Anemia Arthritis [...] nodule Microalbuminuria 09/22/2016 DX:Microalbuminuria Osteoporosis 02/14/2014 DX:Osteoporosis SOCIAL HISTORY: Social History Tobacco Use Smoking status: Never Passive exposure: Never Smokeless tobacco: Never Substance Use Topics Alcohol use: No FAMILY HISTORY: Family History Problem Relation Name Age of [...] Known Problems Sister No Known Problems Sister Family Status Relation Name Status Father at age 54 [place] Mother at age 93 Osteoporosis, HTN, Arthritis Daughter Alive Healthy Son Alive Healthy Son Alive Healthy Brother at age 62 Brain tumor; lymphoma Brother at age 64 COPD Brother Alive COPD Brother [place] Sister Alive Healthy Sister Alive Healthy Sister Alive Healthy Sister Alive Healthy Other (Not Specified) Niece - unilateral breast cancer at age 46 No partnership data on file Current Outpatient Medications: apixaban (ELIQUIS) 5 mg tablet, Take 2 tablets (10 mg total) by mouth 2 (two) times a day for 3 days, THEN 1 tablet (5 mg total) 2 (two) times a day., Disp: , Rfl: B complex-vitamin C-folic acid (NEPHRO-SAVITA) 0.8 mg tablet, Take 1 tablet by mouth 1 (one) time each day., Disp: , Rfl: cetirizine (ZyrTEC) 10 mg chewable tablet, Take 1 tablet (10 mg total) by mouth daily.,, Disp: , Rfl: cholecalciferol (VITAMIN D-3) 50 mcg (2,000 unit) capsule, Take 1 capsule (2,000 Units total) by mouth 1 (one) time each day., Disp: , Rfl: CRANBERRY ORAL, Take by mouth, Disp: , Rfl: ferrous sulfate 325 mg (65 mg iron) EC tablet, Do not crush, chew, or split. Take 1 tablet (325 mg total) by mouth every morning with breakfast, Disp: , Rfl: glipiZIDE (GLUCOTROL XL) 5 mg 24 hr tablet, TAKE 2 TABLETS BY MOUTH IN THE MORNING AND TAKE 1 TABLET BY MOUTH IN THE AFTERNOON (WITH MEALS), Disp: 270 tablet, Rfl: 0 pantoprazole (PROTONIX) 40 mg EC tablet, Take 1 tablet (40 mg total) by mouth 1 (one) time each daybefore breakfast. Do not crush, chew, or split., Disp: , Rfl: polyethylene glycol (MIRALAX) 17 gram packet, Take 17 g by mouth 1 (one) time each day if needed for constipation., Disp: , Rfl: predniSONE (DELTASONE) 20 mg tablet, Take 3 tablets (60 mg total) by mouth 1 (one) time each day., Disp: , Rfl: simvastatin (ZOCOR) 20 mg tablet, Take 1 tablet (20 mg total) by mouth every night at bedtime, Disp: , Rfl: sulfamethoxazole-trimethoprim (BACTRIM DS,SEPTRA DS) 800-160 mg per tablet, Take 1 tablet by mouth 3 (three) times a week for 16 doses., Disp: , Rfl: thiamine (VITAMIN B-1) 100 mg tablet, Take 1 tablet (100 mg total) by mouth 1 (one) time each day.,Disp: , Rfl: No Known Allergies PHYSICAL EXAM: Visit Vitals BP (!) 151/68 (BP Location: Left arm, Patient Position: Sitting, BP Cuff Size: Adult) Pulse 95 Temp 36.6 ??C (97.8 ??F) (Temporal) SpO2 100% Smoking Status Never ECOG 2 APPEARANCE: Alert and oriented in no acute distress, lying on stretcher EYES: nonicteric sclera pink conjunctiva ORAL CAVITY: No erythema or exudates NECK: Neck supple, no cervical adenopathy, HEART: normal S1 and S2 with some tachycardia LUNG: clear to auscultation bilaterally except decreased breath sound the bases LYMPH NODES: No palpable superficial adenopathy ABDOMEN: soft, nontender and no organomegaly appreciated EXTREMITIES: bilateral lower extremity edema LABS: CT chest Impression: 1. No significant change in an irregular juxtapleural nodular opacity in the right lung apex. Malignancy is not excluded. 2. No developing lymphadenopathy. 3. Small bilateral pleural effusions, new. WBC 8.5, hemoglobin 8.2 g, hematocrit 26.7%, MCV 87 and platelet count 1 81,000 Significant renal insufficiency, patient has been on hemodialysis IMPRESSION: 1. Lung mass 2. Normocytic anemia 3. Chronic renal failure, stage 5 (CMS/HCC) Patient is an 79-year-old female who has no history of smoking, last year had COVID-19 infection and pneumonia, patient CT scan showed some suspicious lung nodules specially in the right upper lung as well as small nodule in the lower lung, PET scan showed FDG activity in the right upper lung nodule with some activity in the lower lung nodule, biopsy of right lung mass/nodule last year consistent with no evidence of malignancy/inconclusive the decision made to follow-up and reassess earlier in 2025, patient hospitalized few weeks ago with significant renal failure, patient had renalbiopsy and has been under the care of Dr. Wayne, patient has been on hemodialysis and received rituximab infusion. Patient while was in the hospital had repeat CT scan that showed no significant change in pulmonary nodule/mass as well as there is no mediastinal adenopathy, biopsy of the right lung mass again did not show any evidence of malignancy I discussed with patient and her daughter in detail about CT scan finding, unchanged pulmonary nodule etc., I told patient since she has so many other medical issues including hemodialysis etc. I would not recommend to be too aggressive about tissue sampling surgical intervention for lung mass but if she want to be aggressive, she can go ahead with further intervention regarding lung mass otherwise I would like to repeat another scan in next few months. Patient and daughter will think about these option and get back to me PLAN: Continue close follow-up with fund accounting manager Patient will be seeing Dr. Navarro Patient will return to office if there is any malignancy diagnosed in her lung Jaime Grimaldo MD documented in this encounter Plan of Treatment Upcoming Encounters Date Type Department Care Team (Late st Contact Info) Description 08/23/2024 3:00 PM EST Office Visit Gastroenterology - [address] [address] [phone] Josiane Smith NP [address] [facility] [address] [address] 08/24/2024 11:15 AM EST Office Visit Internal Medicine - [place] [address] [place] [address] Eloisa Vázquez DO [address] [place] [address] 09/05/2024 10:00 AM EDT Office Visit Endocrinology - [place] [address] [place] [address] Kathy Michelle PA [address] [place] [address] 09/06/2024 11:00 AM EDT Ancillary Procedure [facility] - [address] [place] [address] documented as of this encounter Visit Diagnoses Diagnosis Lung mass- Primary Swelling, mass, or lump in chest Normocytic anemia Unspecified anemia Chronic renal failure, stage 5 (CMS/HCC) documented in this encounter Discontinued Medications Medication Sig Discontinue Reason Start Date End Da te CALCIUM CARBONATE ORAL Calcium 600mg Take 1 tablet (600 mg total) by mouth daily 08/10/2024 documented as of this encounter Additional Health Concerns Infection Onset Date Last Indicated Resolved Time Tuberculosis Rule-Out 08/05/2024 08/05/2024 documented as of this encounter Care Teams Forestry Fire Aid Relationship Specialty Start Date End Date Eloisa Vázquez DO [address] [place] [address] PCP - General 04/12/24 documented as of this encounter
--- OUTSIDE RECORDS SUMMARY | 2024-08-16 06:30 | XMS_ITS | Encounter Summary ---
Author Organization [facility] Address [address] [place] [address] Care Team Providers Care Glove Cuffer Name Role Phone Marie Vázquezmankamryn CHERY Primary Care Provider [phone] Reason for Visit * Reason Onset Date Comments provider call back 08/09/2024 Encounter Details Date Type Department Care Team (Late st Contact Info) Description 08/09/2024 Telephone Nephrology - [place] [address] [place] [phone] Chencho Wayne [facility] [address] [place] [address] provider call back Social History Tobacco Use Types Packs/Day Years [...] documented in this encounter Progress Notes * Brenda Wong - 08/12/2024 11:13 AM EST Dennise, patients daughter is calling stating Ana was seen by Dr Wayne at the [facility]. She was discharged last Thursday. She is on dialysis 3 times a day. She needs to see Dr Tone casas. There are no available appointments. Also please review message below. Call Dennise at: [phone] * Criseldakamryn Medina - 08/09/2024 9:12 AM EST Patients daughter is calling today because her mother was in the hospital and had a transfusion called Rituximab performed and was told she would need another one done around 08/11 or 08/12 but she wants to know if she schedules that through the [facility] or if your office does that. Please advise her at [phone]. Also if she needs a sooner follow up appointment than what she has now documented in this encounter Plan of Treatment Upcoming Encounters Date Type Department Care Team (Late st Contact Info) Description 08/23/2024 3:00 PM EST Office Visit Gastroenterology - [address] [facility] [address] [phone] Josiane Smith, LEAD CASTER [address] [address] 08/24/2024 11:15 AM EST [facility] [address] [place] [address] Eloisa Vázquez DO [address] [place] [address] 09/05/2024 10:00 AM EDT Office Visit Endocrinology - [place] [address] [place] [address] Kathy Michelle PA [address] [place] [address] 09/06/2024 11:00 AM EDT Ancillary Procedure [facility] [address] [facility] [address] [place] [phone] documented as of this encounter Visit Diagnoses Not on filedocumented in this encounter Additional Health Concerns Infection Onset Date Last Indicated Resolved Time Tuberculosis Rule-Out 08/05/2024 08/05/2024 documented as of this encounter Care Teams Glove Cuffer Relationship Specialty Start Date End Date Eloisa Vázquez DO [address] [place] [address] PCP - General 04/12/24 documented as of this encounter
--- OUTSIDE RECORDS SUMMARY | 2024-08-16 06:30 | XMS_ITS | Encounter Summary ---
Author Organization [facility] Address [address] [place] [address] Care Team Providers Care Psychological Stress Evaluator Name Role Phone Eloisa Vázquez DO Primary Care Provider [phone] Reason for Visit * Reason Comments Fall * Auth/Cert Specialty Diagnoses / Procedures Referred By Contac t Referred To Contact Diagnoses Acute encephalopathy Procedures . Wayne Donahue MD [address] [place] [phone] Phone: tel: fax: [facility] Emergency [address] [place] [address] Phone: tel: Referral ID Status Reason Start Date Expiration Date Visits Re quested Visits Authorized [id number] 1 1 Encounter Details Date Type Department Care Team (Late st Contact Info) Description 07/08/2024 10:31 AM EST - 08/06/2024 1:09 PM EST Hospital Encounter [facility] Urology Unit [address] [place] [address] Jj Wolfe MD [address] [place] [address] Wayne Donahue MD [address] [place] [address] Maria Alejandra Melendez MD [address] [place] [address] Kwesi Guido MD [address] [place] [phone] Lencho Stuart MD [address] [place] [address] Jonny Mathur MD [address] [place] [phone] Steve Cruz MD [address] [place] [address] Anemia, unspecified type (Primary Dx); Hyponatremia; Acute on chronic renal insufficiency; Acute encephalopathy; Bilateral leg edema; Pulmonary nodule Discharge Disposition: [facility] Facility Social History Tobacco Use Types Packs/Day [...] from the original note were not included. [facility] DISCHARGE SUMMARY Patient Information Ana Krysta Ben : 1945 [79 y.o.] Admitting Provider Wayne [...] was found down on the ground by [facility]. She was unsure the detailsof how [...] will be transferred to the care of [facility] staff for further management of their acute encephalopathy, fall. Hospital course Patient is 79 years old female with past medical history significant for type 2 diabetes, hypertension, chronic kidney disease stage IV, iron deficiency anemia, dyslipidemia, lung nodule brought to the [facility] after wellness check was called to police by her daughter. Patient was foundon the ground unable to get up and was confused. Patient admitted to medical floors for further management of chronic kidney disease, metabolic encephalopathy. # Acute on chronic kidney injury, crescentic glomerulonephritis requiring hemodialysis. -Patient is on hemodialysis Thursday. On prednisone, Bactrim every Thursday. Per stripper machine operator patient's kidney biopsy consistent with crescentic glomerulonephritis. Rituximab given on 07/28/2024. Next dose in 2 weeks. Patient is being followed by stripper machine operator for hemodia lysis. Upon DC continue oral [...] DO [address] [facility] [address] Schedule an appointment as soon as possible for a visit in 3 day(s) for transition of care visit, If symptoms worsen, As needed Chencho Wayne MD [address] [facility] [address] Schedule an appointment as soon as possible for a visit in 1 week(s) for kidney failure management [address] [address] Discharge Procedure Orders Discharge Diet: [...] from the original note were not included. [facility] DISCHARGE SUMMARY Patient Information Ana Contreras : [...] was found down on the ground by [facility]. She was unsure the detailsof how [...] will be transferred to the care of [facility] staff for further management of their acute encephalopathy, fall. Hospital course Patient is 79 years old female with past medical history significant for type 2 diabetes, hypertension, chronic kidney disease stage IV, iron deficiency anemia, dyslipidemia, lung nodule brought to the [facility] after wellness check was called to police by her daughter. Patient was foundon the ground unable to get up and was confused. Patient admitted to medical floors for further management of chronic kidney disease, metabolic encephalopathy. # Acute on chronic kidney injury, crescentic glomerulonephritis requiring hemodialysis. -Patient is on hemodialysis Thursday. On prednisone, Bactrim every Thursday. Per stripper machine operator patient's kidney biopsy consistent with crescentic glomerulonephritis. Rituximab given on 07/28/2024. Next dose in 2 weeks. Patient is being followed by stripper machine operator for hemodia lysis. Upon DC continue oral [...] orders. Follow-Up Instructions and Recommendations DO [address] [facility] [address] Schedule an appointment as soon as possible for a visit in 3 day(s) for transition of care visit, If symptoms worsen, As needed Chencho Wayne MD [address] [facility] [address] Schedule an appointment as soon as possible for a visit in 1 week(s) for kidney failure management [address] [address] Discharge Procedure Orders Discharge Diet: [...] through Care Everywhere. * Diabetes: Renal Diet (Telugu) documented in this encounter Medications at Time [...] Disposition Code Departure Means Destination Comment s [facility] Facility documented in this encounter Progress Notes * Jacquelin Davidson RN - 08/06/2024 1:04 PM EST Report given to ems, to transport [facility]. * Chencho Wayne MD - 08/06/2024 11:15 [...] 0722 Initial Transition Plan Initial Transition Plan [facility] Facility ([facility] Transportation Transportation at discharge [facility] providing transportation [place] What day is the transport expected? 08/06/24 What time is the transport expected? 1300 Final Discharge Disposition [facility] Facility * Katina Machuca RN - 08/06/2024 [...] was found down on the ground by [facility]. She was unsure the detailsof how [...] will be transferred to the care of [facility] staff for further management of their acute encephalopathy, fall. Hospital course Patient is 79 years old female with past medical history significant for type 2 diabetes, hypertension, chronic kidney disease stage IV, iron deficiency anemia, dyslipidemia, lung nodule brought to the [facility] after wellness check was called to police by her daughter. Patient was foundon the ground unable to get up and was confused. Patient admitted to medical floors for further management of chronic kidney disease, metabolic encephalopathy. # Acute on chronic kidney injury, crescentic glomerulonephritis requiring hemodialysis. -Patient is on hemodialysis Thursday. On prednisone, Bactrim every Thursday. Per stripper machine operator patient's kidney biopsy consistent with crescentic glomerulonephritis. Rituximab given on 07/28/2024. Next dose in 2 weeks. Patient is being followed by stripper machine operator for hemodia lysis. Upon DC continue oral [...] 1337 Initial Transition Plan Initial Transition Plan [facility] Facility ([facility] Transportation Transportation at discharge [facility] providing transportation [place] What day is the transport expected? 08/05/24 [...] Shift Summary: PLAN TO D/C TO [facility] TODAY * Louis Welch RN - 08/05/2024 [...] Ordered 08/05/24 0001 Adult NPO diet Location: [facility]; Diet: NPO- Except for Medications Diet effective midnight Question Answer Comment Location [facility] Diet NPO- Except for Medications 08/04/24 0838 07/11/24 1133 Dietary nutrition supplements Two times daily (BID); [facility]; Diabetic Supplement Continuous Question Answer Comment Frequency Two times daily (BID) Location [facility] Supplements Diabetic Supplement 07/11/24 1132 History of [...] or fat depletion Skin: Skin intact per hydrochloric manufacturing supervisor Nutrition Diagnosis: Code Type: None Identified Status: [...] weeks and will be tapered by the stripper machine operator Continue PPI in the outpatient setting if patient is on prednisone Continue Bactrim DS in the outpatient setting thrice weekly (--) as patient is immunosuppressed Lung mass biopsy with Dr. Montez today s/p transfusion yesterday Outpatient HD arranged at [facility] m-w-f 1st shift [phone] on hold since July 21. I have given orders for the patient to start on Thursday Patient for discharge to [facility] Discussed with medical team. Patient to get transfused today From renal standpoint patient can be discharged today or on Thursday The outpatient facility needs to arrange for rituximab infusion on August [address] [facility] outpatient infusion-they can touch base with the renal MD [facility] for that shift for orders and dosage Discussed with the medical team/outpatient dialysis nursing staff and wrapper caser history Chencho Wayne MD * Prisca Goldman PT - 08/05/2024 7:26 AM EST Therapy session was attempted for Ana Contreras by Prisca Goldamn PT on 08/05/2024. The patient was unable [...] a 79 y.o. female : 1945 MR#: [id number] SUBJECTIVE Subjective Patient seen by the bedside [...] of fentanyl administered during the procedure. Scanner: Mixbook [address] Dose reduction technique: AEC [...] Signed Date: 07/22/2024 17:00 ET Workstation ID: [id number] Transcribed By: Self Edit Transcribed Date: 07/22/2024 16:58 ET ASSESSMENT & PLAN Patient is 79 years old female with past medical history significant for type 2 diabetes, hypertension, chronic kidney disease stage IV, iron deficiency anemia, dyslipidemia, lung nodule brought to the [facility] after wellness check was called to police by her daughter. Patient was foundon the ground unable to get up and was confused. Patient admitted to medical floors for further management of chronic kidney disease, metabolic encephalopathy. # Acute on chronic kidney injury, crescentic glomerulonephritis requiring hemodialysis. -Patient is on hemodialysis Thursday. On prednisone, Bactrim every Thursday. Per stripper machine operator patient's kidney biopsy consistent with crescentic glomerulonephritis. Rituximab given on 07/28/2024. Next dose in 2 weeks. Patient is being followed by stripper machine operator for hemodia lysis. # Right upper lobe [...] weeks and will be tapered by the stripper machine operator Continue PPI in the outpatient setting if patient is on prednisone Continue Bactrim DS in the outpatient setting thrice weekly (--) as patient is immunosuppressed Lung mass biopsy with Dr. Montez tomorrow Renal diet Outpatient HD arranged at [facility] m-w-f 1st shift [phone] on hold since July 21. I have given orders for the patient to start on Thursday Patient for discharge to [facility] Discussed with medical team. Patient to get transfused today Will follow chuck shirley team From renal standpoint patient can be discharged tomorrow or on Thursday The outpatient facility needs to arrange for rituximab infusion on August [address] [facility] outpatient infusion-they can touch base with the renal MD covering for [place] for that shift for orders and dosage Discussed with the medical team/outpatient dialysis nursing staff and wrapper caser Chencho Wyane MD * Isidra Florence - 08/04/2024 9:[address] [facility] Physical Therapy Treatment PT Discharge Recommendations: Inpatient rehab facility placement, halfway facility placement Equipment Recommended: rolling walker Staff Recommendations for safe patient handling: min/modA transfers/bed mob Precautions Medical Precautions: Fall Risk Safety Interventions: Call chavarria within reach, ID band on, Bed alarm RUE Weight Bearing Status: Full LUE Weight Bearing Status: Full RLE Weight Bearing Status: Full LLE Weight Bearing Status: Full History of Present Illness: Patient is a 79 y.o. female admitted to [facility] on 07/08/2024 with: Patient Active Problem List Diagnosis Hypertension Hyperlipidemia History of cancer of unknown primary site CKD (chronic kidney disease) stage 4, GFR 15-29 ml/min ([facility] Iron deficiency anemia Impaired renal function Type 2 diabetes mellitus without complication, without long-term current use of insulin ([facility]) Lung mass Pulmonary nodule Fall prevention education [...] week PT Discharge Recommendations Inpatient rehab facility placement;halfway facility placement Equipment Recommended rolling walker PT [...] PT Discharge Recommendations: Inpatient rehab facility placement, halfway facility placement Equipment Recommended: rolling walker Barriers [...] RN - 08/04/2024 9:17 AM EST This magazine writer received a call from Beth at [facility] where they have had a dialysis STR bed open and are accepting and going for insurance auth. ICC notified provider and will follow for transfer once insurance auth obtained. * Nelli Schmidt, OT - 08/04/2024 8:[address] [facility] Occupational Therapy Treatment Note DATE: July TIME IN: 0830 TIME OUT: 0900 Pt: Ana Contreras 561/561-2 DISCHARGE RECS: Inpatient rehab facility placement, halfway facility placement EQUIPMENT RECS: Walker-rolling SAFE PT [...] No OT Time Calculation OT Start Time 08 OT Stop Time 09 OT Time Calculation (min) 30 min Precautions [...] Complete OT Discharge Recommendations Inpatient rehab facility placement;halfway facility placement Equipment Recommended Walker-rolling ADDITIONAL COMMENTS: [...] up Transition Plan Back up Transition plan [facility] Facility Anticipated Discharge Needs Discipline following for SNF placement [employer] DANITZA: 08/06 Barriers: Accepting SNF w HD, Bronch w lung mass bx re-scheduled 08/05, ability to stand/pivot for family to transport to HD. Plan: ACR vs SNF pending accepting facility with HD and or ability to transport to [facility]. [facility] can only continue to hold OPT HD slot until 08/05. ICC s/w family and updated on MARYSE options. Bill [facility] [employer], , called [facility] and will attempt to assist with [...] a 79 y.o. female : 1945 MR#: [id number] SUBJECTIVE Subjective Patient seen by the bedside [...] of fentanyl administered during the procedure. Scanner: Mixbook [address] Dose reduction technique: AEC [...] Signed Date: 07/22/2024 17:00 ET Workstation ID: [id number] Transcribed By: Self Edit Transcribed Date: 07/22/2024 16:58 ET ASSESSMENT & PLAN Patient is 79 years old female with past medical history significant for type 2 diabetes, hypertension, chronic kidney disease stage IV, iron deficiency anemia, dyslipidemia, lung nodule brought to the [facility] after wellness check was called to police by her daughter. Patient was foundon the ground unable to get up and was confused. Patient admitted to medical floors for further management of chronic kidney disease, metabolic encephalopathy. # Acute on chronic kidney injury, crescentic glomerulonephritis requiring hemodialysis. -Patient is on hemodialysis Thursday. On prednisone, Bactrim every Thursday. Per stripper machine operator patient's kidney biopsy consistent with crescentic glomerulonephritis. Rituximab given on 07/28/2024. Next dose in 2 weeks. Patient is being followed by stripper machine operator for hemodia lysis. # Right upper lobe [...] mellitus, type 2 (HCC) DVT, lower extremity ([facility]) LEFT LEG Family history of early [...] mmol/L Phosphorus Date Value Ref Range Status 08/03/2024 [...] Montez Renal diet Outpatient HD arranged at [facility] m--f 1st shift [phone] on hold since July 21. We need to know before Thursday if he can give away the chair and patient disposition Consider [facility] or Maribeth if going to [facility] Discussed with medical team. Patient to get transfused today Will follow chuck w team If patient discharged before August 11 the outpatient facility needs to arrange for rituximab infusion on August 11 or Chencho Wayne MD * Nelli Shcmidt OT - 08/03/2024 9:15 AM EST Therapy session was attempted for Wilcox A Contreras by Nelli Schmidt OT on 08/03/2024. [...] Isidra Florence - 08/02/2024 2:[address] [facility] Physical Therapy Treatment PT Discharge Recommendations: Inpatient rehab facility placement, halfway facility placement Equipment Recommended: rolling walker Staff [...] is a 79 y.o. female admitted to [facility] on 07/08/2024 with: Patient Active Problem List Diagnosis Hypertension Hyperlipidemia History of cancer of unknown primary site CKD (chronic kidney disease) stage 4, GFR 15-29 ml/min ([facility]) Iron deficiency anemia Impaired renal function Type 2 diabetes mellitus without complication, without long-term current use of insulin ([facility]) Lung mass Pulmonary nodule Fall prevention [...] week PT Discharge Recommendations Inpatient rehab facility placement;halfway facility placement Equipment Recommended rolling walker PT [...] PT Discharge Recommendations: Inpatient rehab facility placement, halfway facility placement Equipment Recommended: rolling walker Barriers [...] 2:58 PM EST Associated attestation - Kayla Amado PT - 08/02/2024 2:58 PM EST PT [...] a 79 y.o. female : 1945 MR#: [id number] SUBJECTIVE Subjective Patient seen by the bedside [...] of fentanyl administered during the procedure. Scanner: Mixbook [address] Dose reduction technique: AEC [...] Signed Date: 07/22/2024 17:00 ET Workstation ID: [id number] Transcribed By: Self Edit Transcribed Date: 07/22/2024 16:58 ET ASSESSMENT & PLAN Patient is 79 years old female with past medical history significant for type 2 diabetes, hypertension, chronic kidney disease stage IV, iron deficiency anemia, dyslipidemia, lung nodule brought to the [facility] after wellness check was called to police by her daughter. Patient was foundon the ground unable to get up and was confused. Patient admitted to medical floors for further management of chronic kidney disease, metabolic encephalopathy. # Acute on chronic kidney injury, crescentic glomerulonephritis requiring hemodialysis. -Patient is on hemodialysis Thursday. On prednisone, Bactrim every Thursday. Per stripper machine operator patient's kidney biopsy consistent with crescentic glomerulonephritis. Rituximab given on 07/28/2024. Next dose in 2 weeks. Patient is being followed by stripper machine operator for hemodia lysis. # Right upper lobe [...] Schmidt OT - 08/02/2024 1:[address] [facility] Occupational Therapy Treatment Note DATE: Friday August 02, 2024 TIME IN: 1335 TIME OUT: 1405 Pt: Ana Contreras 561/561-2 DISCHARGE RECS: Inpatient rehab facility placement, halfway facility placement EQUIPMENT RECS: Walker-rolling SAFE PT [...] Complete OT Discharge Recommendations Inpatient rehab facility placement;halfway facility placement Equipment Recommended Walker-rolling ADDITIONAL COMMENTS: [...] on oral prednisone Preliminary kidney biopsy result (1/24) c/w crescentic necrotizing glomerulonephritis High PR3 c/w [...] Outpatient HD arranged at [facility] 1st shift [phone]) Consider Kana Jolene or Maribeth if going to SNF Discussed with medical team. Patient to get transfused today Will follow [facility] team Chencho Wayne MD * Katina Machuca [...] Outpatient HD arranged at [facility] 1st shift [phone]) Consider Kana Fernández or Maribeth if going to SNF [facility] Anthony Norton MD * Steve Cruz MD - 08/01/2024 4:42 PM EST Images from the original note were not included. SONYA PROGRESS NOTE Date: 08/01/2024 Author: Steve Cruz MD Patient ID: Ana Contreras is a 79 y.o. female : 1945 MR#: [id number] SUBJECTIVE Subjective Patient seen by the bedside [...] of fentanyl administered during the procedure. Scanner: Mixbook [address] Dose reduction technique: AEC [...] Signed Date: 07/22/2024 17:00 ET Workstation ID: [id number] Transcribed By: Self Edit Transcribed Date: 07/22/2024 16:58 ET ASSESSMENT & PLAN Patient is 79 years old female with past medical history significant for type 2 diabetes, hypertension, chronic kidney disease stage IV, iron deficiency anemia, dyslipidemia, lung nodule brought to the [facility] after wellness check was called to police by her daughter. Patient was foundon the ground unable to get up and was confused. Patient admitted to medical floors for further management of chronic kidney disease, metabolic encephalopathy. # Acute on chronic kidney injury, crescentic glomerulonephritis requiring hemodialysis. -Patient is on hemodialysis Thursday. On prednisone, Bactrim every Thursday. Per stripper machine operator patient's kidney biopsy consistent with crescentic glomerulonephritis. Rituximab given on 07/28/2024. Next dose in 2 weeks. Patient is being followed by stripper machine operator for hemodia lysis. # Right upper lobe [...] call chavarria within reach * Florecita Camara, RADHIKA - 08/01/2024 11:00 AM EST [place], [place] Acute Care PT TREATMENT 08/01/2024 Patient Information Ana Chaparro Ben 1945 79 y.o. Ambulation: Walking Assistance: Minimum assistance Device: Rolling walker Distance Ambulated (ft): (5 steps to transfer bed to commode + 3 to 4 steps forward and 3 to 4 steps back with RW) PLOF: Level of [place]: Independent with mobility and functional transfers Lives [...] mod assist [facility] tor hand placement. Pt then [...] Schmidt OT - 08/01/2024 10:[address] [facility] Occupational Therapy Treatment Note DATE: Thursday August 01, 2024 TIME IN: 1050 TIME OUT: 1125 Pt: Ana Contreras 561/561-2 DISCHARGE RECS: halfway facility placement, Inpatient rehab facility placement EQUIPMENT [...] - Evaluation Status Complete OT Discharge Recommendations halfway facility placement;Inpatient rehab facility placement Equipment Recommended [...] resolved problems. Nelli Schmidt OT * Kayleigh Laguna, RD - 08/01/2024 10:07 AM EST 08/01/2024 @ 10:07 AM EST Nutrition Follow Up Note Reason for RD Intervention: Assessment Type: Follow-up Anthropometrics: Height: 162.5 cm (63.98 ) Weight: 73.1 kg (161 lb 3.2 oz) Weight Method: Actual BMI (Calculated): 27.7 BMI Class: Overweight IBW (lbs): 120 Current Diet and Supplements: Dietary Orders (From admission, onward) Start Ordered 07/27/24 1332 Adult diet [facility]; General; Renal- Chronic Kidney Disease; Self-Select Meals Diet effective now Question Answer Comment Location [facility] Diet Type (req) General General Diet Renal- Chronic Kidney Disease Is the patient able to participate in meal ordering? Self-Select Meals 07/27/24 1332 07/11/24 1133 Dietary nutrition supplements Two times daily (BID); [facility]; Diabetic Supplement Continuous Question Answer Comment Frequency Two times daily (BID) Location [facility] Supplements Diabetic Supplement 07/11/24 1132 History of [...] at home. No noted food allergies. Appetite SEWING LINE BALER: Poor Intake SEWING LINE BALER: Decreased Weight History: Wt Readings from Last [...] reports improved PO intake since last visit. MINE ANALYST at bedside who confirmed she has been [...] or fat depletion Skin: Skin intact per hydrochloric manufacturing supervisor Nutrition Diagnosis: Code Type: None Identified Status: [...] completion of daily activities 08/01/2024320 by Katina Altaimrano RN Outcome: Not Progressing 08/01/2024252 by Katina [...] Goal: Patient will propel wheelchair household/community distances 08/01/2024320 by Katina Altamirano RN Outcome: Not Progressing 08/01/2024252 by Katina Altamirano RN Outcome: Not Progressing Goal: Patient will demonstrate kitchen mobility 08/01/2024320 by Katina Altamirano RN Outcome: Not Progressing 08/01/2024252 by Katina Altamirano RN Outcome: Not Progressing Goal: Patient will recall and demonstrate 3 out of 3 total hip precautions during mobility 08/01/2024 032 by Katina Altamirano RN Outcome: Not Progressing 08/01/2024252 by Katina Altamirano RN Outcome: Not Progressing Goal: Patient will ambulate community distance 08/01/2024320 by Katina M, RN Outcome: Not Progressing 08/01/2024252 by Katina Altamirano RN Outcome: Not Progressing Goal: Patient will propel wheelchair household distances 08/01/2024320 by Katina Altamirano RN Outcome: Not Progressing 08/01/2024252 by Katina Altamirano RN Outcome: Not Progressing Goal: Patient will ambulate household distance 08/01/2024 032 by Katina Altamirano RN Outcome: Not Progressing 08/01/2024252 by aKtina Altamirano RN Outcome: Not Progressing Goal: Patient [...] four to six stairs 08/01/2024320 by Katina Altamirano, RN Outcome: [...] Progressing Goal: Patient locks brakes on wheelchair 08/01/2024 032 by Katina Altamirano RN Outcome: [...] will perform car transfer 08/01/2024320 by Katina Altamirano, RN Outcome: Not Progressing 08/01/2024252 by Katina Altamirano RN Outcome: Not Progressing Goal: Patient will perform toilet transfer 08/01/2024320 by Katina Altamirano RN Outcome: Not Progressing 08/01/2024252 by Katina Altamirano RN Outcome: Not Progressing Goal: Patient will perform tub/shower transfer 08/01/2024320 by Katina Altamirano, RN Outcome: Not Progressing 08/01/2024252 by Katina Altamirano RN Outcome: Not Progressing Goal: Patient will follow hip precautions during transfers 08/01/2024320 by Katina Altamirano, RN Outcome: Not Progressing 08/01/2024252 by Katina Altamirano, RN Outcome: Not Progressing Goal: Patient maintains [...] a 79 y.o. female : 1945 MR#: [id number] SUBJECTIVE Follow up:metabolic encephalopathy, renal failure requiring [...] of fentanyl administered during the procedure. Scanner: Mixbook [address] Dose reduction technique: AEC [...] Signed Date: 07/22/2024 17:00 ET Workstation ID: [id number] Transcribed By: Self Edit Transcribed Date: 07/22/2024 16:58 ET ASSESSMENT & PLAN Patient is an 79 woman with HTN, DM2, CKD 4, iron deficiency anemia, hyperlipidemia, and recent diagnosis of lung nodule with planned bronchoscopy and EBUS , she was brought to the [facility] ER on 07/08 after wellness check was [...] tomorrow Patient will need SNF with hemodialysis capability([facility] vs [facility]). [facility] already aware and referrals placed. * Katina [...] Outpatient HD arranged at [facility] -w- 1st shift [phone]) Consider [facility] or [facility] if going to [facility] Mindy Katz MD Cosigned by Miguel Quiles MD at 08/02/2024 2:08 PM EST * Jonny Mathur MD - 07/30/2024 12:28 PM EST Images from the original note were not included. [facility] PROGRESS NOTE Date: 07/30/2024 Author: Jonny Mathur MD Patient ID: Ana Contreras is a 79 y.o. female : 1945 MR#: [id number] SUBJECTIVE Follow up:metabolic encephalopathy, renal failure w/renal [...] of fentanyl administered during the procedure. Scanner: Mixbook [address] Dose reduction technique: AEC [...] Signed Date: 07/22/2024 17:00 ET Workstation ID: [id number] Transcribed By: Self Edit Transcribed Date: 07/22/2024 [...] a 79 y.o. female : 1945 MR#: [id number] SUBJECTIVE Follow up:metabolic encephalopathy, renal failure requiring [...] of fentanyl administered during the procedure. Scanner: Mixbook [address] Dose reduction technique: AEC [...] Signed Date: 07/22/2024 17:00 ET Workstation ID: [id number] Transcribed By: Self Edit Transcribed Date: 07/22/2024 [...] to room. Report given to primary nurse Mealny Hatzis, RN, Next Hemodialysis tx Thursday08/01/2024 Weight (Unable [...] CHLORIDE mmol/L 95* 95* 97 CO2 mmol/L 28 Phosphorus Date Value Ref Range Status [...] at [facility] - 1st shift [phone]) Consider [facility] or [facility] if going to SNF Miguel Quiles MD * Sharon Soils RN - 07/29/2024 4:07 AM EST Goals: [...] a 79 y.o. female : 1945 MR#: [id number] SUBJECTIVE Follow up:metabolic encephalopathy, renal failure requiring [...] of fentanyl administered during the procedure. Scanner: Mixbook [address] Dose reduction technique: AEC [...] Signed Date: 07/22/2024 17:00 ET Workstation ID: [id number] Transcribed By: Self Edit Transcribed Date: 07/22/2024 [...] AM EST Therapy session was attempted for Wilcox A Contreras by Jules Woods OT on [...] examined No complaints D/w medical attending D/w [facility] pathology MEDICAL HISTORY [...] at [facility] -w-f 1st shift [phone]) Consider [facility] or [place] if going to [facility] Miguel Quiles MD * Jonny Mathur MD - 07/27/2024 7:02 PM EST Images from the original note were not included. SONYA PROGRESS NOTE Date: 07/27/2024 Author: Jonny Mathur MD Patient ID: Ana Contreras is a 79 y.o. female : 1945 MR#: [id number] SUBJECTIVE Follow up:metabolic encephalopathy, renal failure requiring [...] Sitting Pulse: 74 74 89 85 Resp: 18 Temp: 36.4 ??C (97.5 ??F) 36.1 [...] of fentanyl administered during the procedure. Scanner: Mixbook [address] Dose reduction technique: AEC [...] Signed Date: 07/22/2024 17:00 ET Workstation ID: [id number] Transcribed By: Self Edit Transcribed Date: 07/22/2024 [...] Ordered 07/27/24 0001 Adult NPO diet Location: [facility]; Diet: NPO- Except for Medications Diet effective midnight Question Answer Comment Location [facility] Diet NPO- Except for Medications 07/26/24 1755 07/11/24 1133 Dietary nutrition supplements Two times daily (BID); [facility]; Diabetic Supplement Continuous Question Answer Comment Frequency Two times daily (BID) Location [facility] Supplements Diabetic Supplement 07/11/24 1132 History of presenting illness: Patient is a 79 y.o. female with a history of Past Medical History: Diagnosis Date Anemia Arthritis Blindness Decreased vision 11/29/2014 DX:Decreased vision Diabetes mellitus, type 2 ([facility]) 02/14/2014 DX:Diabetes mellitus, type 2 (HCC) DVT, [...] at home. No noted food allergies. Appetite SEWING LINE BALER: Poor Intake SEWING LINE BALER: Decreased Weight History: Wt Readings from Last [...] lung biopsy this morning. Currently NPO. Per hydrochloric manufacturing supervisor, pt consuming 25-50% of meals since last [...] or fat depletion Skin: Skin intact per hydrochloric manufacturing supervisor Nutrition Diagnosis: Code Type: None Identified Status: [...] from last 7 days Lab Units 07/27/24 0607/25/24 0535 07/24/24 0648 WBC AUTO K/mcL 12.4* 12.4* 14.2* 13.1* 13.1* HEMOGLOBIN g/dL 7.7* 7.7* 8.0* 7.7* 7.7* HEMATOCRIT % 25.5* 25.5* 25.7* 25.3* 25.3* MCV FL 83.3 83.3 82.1 81.4 81.4 PLATELETS K/mcL 143 143 158 174 174 Results from last 7 days Lab Units 07/27/24 0607/25/24 0535 07/24/24 0648 CREATININE mg/dL 3.88* 3.91* 2.84* BUN mg/dL 62* 77* 54* SODIUM mmol/L 130* 132* 132* POTASSIUM mmol/L 4.2 4.2 4.1 CHLORIDE mmol/L 93* 94* 94* CO2 mmol/L Phosphorus Date Value Ref Range [...] at [facility] m-w-f 1st shift [phone]) Consider [facility] or [facility] if going to [facility] Miguel Quiles MD * Katina Machuca RN [...] from the original note were not included. [facility] PROGRESS NOTE Date: 07/26/2024 Author: Jonny Mathur MD Patient ID: Ana Contreras is a 79 y.o. female : 1945 MR#: [id number] SUBJECTIVE Follow up:metabolic encephalopathy, renal failure requiring [...] of fentanyl administered during the procedure. Scanner: Mixbook [address] Dose reduction technique: AEC [...] Signed Date: 07/22/2024 17:00 ET Workstation ID: [id number] Transcribed By: Self Edit Transcribed Date: 07/22/2024 [...] Fernández considering pending bed and HD slot. [facility] accepting w family to provide HD transportation support if Pt can get in/out of private vehicle. * Nithya Constantino, PT - 07/26/2024 8:45 AM EST Patient: Ana Contreras Age: 79 y.o. Sex: female Acute encephalopathy [facility] Physical Therapy RE-Evaluation Ambulation: Walking Assistance: [...] Distance Ambulated (ft): 3 PLOF: Level of [place]: Independent with mobility and functional transfers Lives With: Alone Type of Home: House Home Adaptive Equipment: Cane, Rollator Home Layout: One level Home Access: Stairs to enter without rails DME Needs: r walker PT Discharge Recommendation: Inpatient rehab facility placement, halfway facility placement Reason for current recommendation based [...] Shower/Tub Tub/shower unit Prior Function Level of [place] Independent with mobility and functional transfers Ambulation [...] week PT Discharge Recommendations Inpatient rehab facility placement;halfway facility placement Equipment Recommended r walker PT [...] CHLORIDE mmol/L 94* 94* 92* CO2 mmol/L Phosphorus Date Value Ref Range [...] mg daily PPI Bactrim DS thrice weekly (M-W-) Lung mass biopsy which on Thursday07/27/[address] Montez Renal diet Outpatient HD arranged at [facility] m-w-f 1st shift [phone]) Consider [facility] or [facility] if going to [facility] Miguel Quiles MD * Katina Machuca RN [...] a 79 y.o. female : 1945 MR#: [id number] SUBJECTIVE Follow up:metabolic encephalopathy, renal failure requiring [...] of fentanyl administered during the procedure. Scanner: Mixbook [address] Dose reduction technique: AEC [...] Signed Date: 07/22/2024 17:00 ET Workstation ID: [id number] Transcribed By: Self Edit Transcribed Date: 07/22/2024 [...] at [facility] -- 1st shift [phone]) Consider [facility] or [facility] if going to [facility] Miguel Quiles MD * Tarsha Corea RN - 07/25/2024 8:45 AM EST DANITZA: 07/28 Barriers: Renal Bx 07/22 w/ path pending, new HD, trend labs, H/H, heparin drip- LLE DVT, repeat Pt eval, lung mass biopsy 07/27 Plan: 1st choice - [facility] or [place] d/t onsite HD. [facility] accepting w family to provide HD [...] up Transition Plan Back up Transition plan [facility] Facility Barriers to discharge: Renal Bx 07/22 path pending, new HD, trend labs, H/H, heparin drip-LLE DVT, repeat Pt eval, lung mass biopsy 07/27 Plan: [facility] accepting w family to provide HD transportation support. ICK Stuart MD - 07/24/2024 1:11 PM EST Images from the original note were not included. [facility]ONYA PROGRESS NOTE Date: 07/24/2024 Author: Lencho Stuart MD Patient ID: Ana Contreras is a 79 y.o. female : 1945 MR#: [id number] SUBJECTIVE CC: Follow-up renal failure No complaints. [...] bed, anticoagulation/lung mass biopsy HCP: Daughter, Dennise. [phone] ICK Golden MD - 07/24/2024 8:59 AM EST [...] 18 Units/kg/hr, Last Rate: 21 Units/kg/hr (07/23/24 0756) OBJECTIVE Vital signs in last 24 hours: [...] a 79 y.o. female : 1945 MR#: [id number] SUBJECTIVE CC: Follow-up renal failure Post procedure [...] bed. DC likely next week. HCP: DaughterDennise. [phone] * Nelli Schmidt OT - 07/23/2024 9:00 [...] on Thursday PPI Bactrim DS thrice weekly (-W-F) Hold apixaban C/w heparin Renal diet IV [...] from the original note were not included. [facility] PROGRESS NOTE Date: 07/22/2024 Author: Lencho Stuart MD Patient ID: Ana Contreras is a 79 y.o. female : 1945 MR#: [id number] SUBJECTIVE CC: Follow-up renal failure Seen in [...] bed. DC likely next week. HCP: DaughterDennise. [phone] * Kayleigh Laguna RD - 07/22/2024 12:44 [...] Ordered 07/22/24 0001 Adult NPO diet Location: [facility]; Diet: NPO- Except for Medications Diet effective midnight Question Answer Comment Location [facility] Diet NPO- Except for Medications 07/21/24 1326 07/11/24 1133 Dietary nutrition supplements Two times daily (BID); [facility]; Diabetic Supplement Continuous Question Answer Comment Frequency Two times daily (BID) Location [facility] Supplements Diabetic Supplement 07/11/24 1132 Food/Nutrition History: Previous Diet / Nutrition Education / Counseling: Per MST screeening, pt reports weight loss of 24-33 lb in past 3 months, and reports poor PO intake. Pt living by herself prior to admission, but hassupport from children. History of DM- takes glipizide at home. No noted food allergies. Appetite SEWING LINE BALER: Poor Intake SEWING LINE BALER: Decreased Weight History: Wt Readings from Last [...] or fat depletion Skin: Skin intact per hydrochloric manufacturing supervisor Nutrition Diagnosis: Code Type: None Identified Status: [...] bx is CA, Pt may transition to [facility] per family. Per IPR, Pulmonary IR stated possible intervention 07/27. Plan: STR pending accepting facility w HD support. * Nithya Constantino PT - 07/22/2024 8:30 AM EST Patient: Ana Contreras Age: 79 y.o. Sex: female Acute encephalopathy [facility] Physical Therapy Treatment Ambulation: Walking Assistance: Minimum assistance Walking Deficit: Steadying, Verbal cueing, Supervision/safety awareness, Increased time to complete, Assist for trunk control, Assist for weight shifting, Limited endurance, Impaired balance, LE weakness Device: Rolling walker Distance Ambulated (ft): 2 PLOF: Level of [place]: Independent with mobility and functional transfers Lives [...] Activity 3 sit to stand transfers at [facility], requiring only min assist for lift off and balance; she stood momentarily , but with c/o dizziness; after a seated rest, stood again , at [place], min assist and took 4 steps sideways toward HOB in prep of supine, with assist to weight shiftand balance (pt was assisted back to bed due to dizziness which did not dissipate) PT Assessment PT Assessment Results Decreased strength;Decreased range of motion;Decreased endurance;Impaired balance;Impaired gait;Decreased mobility;Impaired vision;Other (Comment) (dizziness) Prognosis Good Medical Staff Made Aware Yes Plan PT Discharge Recommendations Inpatient rehab facility placement;halfway facility placement Equipment Recommended r walker Barriers [...] from last 7 days Lab Units 07/22/24 03107/21/24 0855 07/21/24 0512 WBC AUTO K/mcL 9.6 18.9* 18.8* HEMOGLOBIN g/dL 7.2* 7.3* 7.3* HEMATOCRIT % 24.3* 23.7* 23.6* MCV FL 80.5 80.3 81.1 PLATELETS K/mcL 169 195 200 Results from last 7 days Lab Units 07/22/24 03107/21/24 0855 07/20/24 0546 CREATININE mg/dL 2.87* 5.05* 3.68* BUN mg/dL 40* 63* 41* SODIUM mmol/L 132* 130* 132* POTASSIUM mmol/L 5.0 4.8 4.2 CHLORIDE mmol/L 95* 92* 95* CO2 mmol/L Phosphorus Date Value Ref [...] a 79 y.o. female : 1945 MR#: [id number] SUBJECTIVE CC: Follow-up renal failure Seen during [...] DC likely next week. HCP: Daughter, Dennise. [phone] * Louis Welch RN - 07/21/2024 12:55 [...] AM EST Problem: Falls: Fall Risk ([facility]ult [facility]) Goal: (Goal) Patient will experience maximum [...] a 79 y.o. female : 1945 MR#: [id number] SUBJECTIVE CC: Follow-up renal failure Seen in [...] renal biopsy, pending SNF bed. HCP: DaughterDennise. [phone] * Miguel Quiles MD - 07/20/2024 12:09 [...] Age: 79 y.o. Sex: female Acute encephalopathy [facility] Physical Therapy Treatment Ambulation: Walking Assistance: Moderate assistance Device: Rolling walker Distance Ambulated (ft): 2 PLOF: Level of [place]: Independent with mobility and functional transfers Lives [...] ble's) Therapeutic Activity 2 sit-stand transfers at [facility], mod assist to adjust posture, hand and foot posture, and to facilitate forward trunk over ISABELLE. Pt stood, supported at [facility] with mod assist, limited by ble weakness, [...] a 79 y.o. female : 1945 MR#: [id number] SUBJECTIVE CC: Follow-up RENE, DVT and encephalopathy [...] next 1-2 days. Barrier: Heparin, anemia HCP: DaughterDennise. [phone] * Jose Lujan RN - 07/19/2024 11:20 [...] PRN for the MARTINEZ with improvement post manager medicare. Pt's floorRN aware of leg pain and [...] Torres RN Outcome: Progressing 07/19/2024 0238 by Katnia Torres RN Outcome: Not Progressing Goal: Patient [...] RN Outcome: Not Progressing 07/19/2024 0238 by Katian Torres RN Outcome: Adequate for Discharge Goal: Patient will demonstrate kitchen mobility 07/19/2024 024 by Katina S, RN Outcome: Adequate for Discharge 07/19/2024 0242 [...] steps with rails/device 07/19/2024 0246 by Katina Torres, RN Outcome: Adequate for Discharge 07/19/2024 0242 by Katina Torres RN Outcome: Not Progressing 07/19/2024 0238 by Katina Torres RN Outcome: Not Progressing Goal: Patient will demonstrate safe mobility requirements 07/19/2024 0246 by Katina Torres, RN Outcome: Adequate for Discharge 07/19/2024 0242 by Katina Torres RN Outcome: Not Progressing 07/19/2024 0238 by Katina Torres RN Outcome: Progressing Goal: Patient will propel the wheelchair 07/19/2024 0246 by Katina Torres, RN Outcome: [...] to precautions during ADL's and transfers 07/19/2024 024 by Katina Torres RN [...] Progressing Goal: Free from fall injury 07/19/2024 024 by Katina Torres RN Outcome: Adequate for Discharge 07/19/2024 024 by Katina Torres RN Outcome: Progressing 07/19/2024 024 by Katina Torres RN Outcome: Progressing 07/19/2024 0238 by Katina Torres RN Outcome: Progressing Problem: Transfers Goal: Patient will transfer to car 07/19/2024 024 by Katina Torres RN Outcome: Adequate for Discharge 07/19/2024 024 by Katina Torres RN Outcome: Not Progressing 07/19/2024 0238 by Katnia Torres RN Outcome: Not Progressing Goal: Patient will transfer from one surface to another 07/19/2024 024 by Katina Torres RN Outcome: [...] Outcome: Not Progressing 07/19/2024 024 by Katina Torres, RN Outcome: Not Progressing [...] from sit to supine 07/19/2024 0246 by Ktaina Torres RN Outcome: Adequate for Discharge 07/19/2024 [...] Goal: Patient will perform toilet transfer 07/19/2024 024 by Katina Torres RN [...] Patient will demonstrate intervention for managing pain 07/19/2024245 by Katina Torres RN Outcome: Adequate for Discharge 07/19/2024 024 by Katina Torres RN Outcome: Progressing 07/19/2024 024 by Katina Torres RN Outcome: Progressing 07/19/2024 0238 by Katina Torres RN Outcome: Progressing Goal: Patient will reduce or eliminate use of analgesics 07/19/2024 024 by Katina Torres RN Outcome: Adequate for Discharge 07/19/2024 024 by Katina Torres RN Outcome: Progressing 07/19/2024 024 by Katina Torres RN Outcome: Progressing 07/19/2024 0238 by Katina Torres RN Outcome: Progressing Goal: Pain is manageable through therapies 07/19/2024 0246 by Katina Torres RN Outcome: Adequate for Discharge 07/19/2024 024 by Katina Torres RN Outcome: Progressing 07/19/2024 024 by Katina Torres RN Outcome: Progressing 07/19/2024 0238 by Katina Torres RN Outcome: Progressing Goal: Patient will verbalize an acceptable level of pain 07/19/2024 0246 by Katina Torres RN [...] Goal: Patient demonstrates pressure reduction techniques 07/19/2024 024 by Katina Torres RN Outcome: Adequate for Discharge 07/19/2024 024 by Katina Torres RN Outcome: Progressing Goal: Patient demonstrates preventative skin care measures 07/19/2024 024 by Katina Torres RN Outcome: Adequate for Discharge 07/19/2024 024 by Katina Torres RN Outcome: Progressing Goal: Patient will perform skin checks daily on residual limb 07/19/2024 024 by Katina Torres RN Outcome: Adequate for Discharge 07/19/2024 024 by Katina Torres RN Outcome: Progressing Goal: Patient will appropriately don and doff shrinkers and prevent and skin breakdown 07/19/2024 024 by Katina Torres RN Outcome: Adequate for Discharge 07/19/2024 0242 by Katina Torres RN Outcome: Progressing Goals: [...] a 79 y.o. female : 1945 MR#: [id number] SUBJECTIVE CC: Follow-up RENE, DVT and encephalopathy [...] over the next 1-3 days. HCP: DaughterDennise. [phone] * Kayleigh Laguna, RD - 07/18/2024 4:24 PM EST 07/18/2024 @ 4:24 PM EST Nutrition Follow Up Note Reason for RD Intervention: Assessment Type: Follow-up Anthropometrics: Height: 162.5 cm (63.98 ) Weight: 81.7 kg (180 lb 1.6 oz) Weight Method: Actual BMI (Calculated): 30.9 BMI Class: Overweight IBW (lbs): 120 Current Diet and Supplements: Dietary Orders (From admission, onward) Start Ordered 07/17/24 1206 Adult diet [facility]; Cardiac, Diabetic; 60 gm carb/Meal; Cardiac Diet effective now Question Answer Comment Location [facility] Diet Type (req) Cardiac Diet Type (req) Diabetic Diabetic 60 gm carb/Meal Diet Type (cardiac) Cardiac 07/17/24 1205 07/11/24 1133 Dietary nutrition supplements Two times daily (BID); [facility]; Diabetic Supplement Continuous Question Answer Comment Frequency Two times daily (BID) Location [facility] Supplements Diabetic Supplement 07/11/24 1132 History of presenting illness: Patient is a 79 y.o. female with a history of Past Medical History: Diagnosis Date Anemia Arthritis Blindness Decreased vision 11/29/2014 DX:Decreased vision Diabetes mellitus, type 2 ([facility]/H[facility]) 02/14/2014 DX:Diabetes mellitus, type 2 (HCC) DVT, [...] at home. No noted food allergies. Appetite SEWING LINE BALER: Poor Intake SEWING LINE BALER: Decreased Weight History: Wt Readings from Last [...] or fat depletion Skin: Skin intact per hydrochloric manufacturing supervisor Nutrition Diagnosis: Code Type: None Identified Status: [...] 1345 Type of Visit: Initial Visit and Network Relations Consultant Rounding Reason for Visit: Spiritual/Emotional Support and Spiritual Assessment Time Spent: 25 Minutes Location: [address] [place] [address]- Sacramental Encounters: Spiritual Distress Assessment: Spiritual Distress [...] and missed her two cats. Pt reportedbeing Evangelical while also reporting that she did not pray often. Network Relations Consultant's suggestion to pray that evening was received [...] usually? Transcendence Do you have a particular sikhism, jimena, or spirituality? Is your sikhism/spirituality/jimena challenged by what is happening to you [...] EST Ana Contreras 07[birth year] 79 y.o. [id number] Kwesi Guido, * INTERVAL HISTORY: No events [...] Signed Date: 07/16/2024 12:33 ET Workstation ID: [id number] Transcribed By: Self Edit Transcribed Date: 07/16/2024 [...] - pending clinical improvement HCP -Daughter Dennise [phone], she was updated at bedside today. 45 minutes were spent in patient care including faup-wn-rdkj time, chart review, discussion with providers, documentation, customer order clerk. High complexity medical decision making. Health Care proxy with Phone number: Paul Contreras Jr (Son) Disclaimer: Speech recognition software was utilized to dictate portions of this document. Errors in medical data entry clerk may be present. Please call / cortext [...] MD - 07/16/2024 6:35 PM EST Ana Chaparro Ben 07[birth year] 79 y.o. [id number] Kwesi Guido, * INTERVAL HISTORY: No events [...] 07/15/24 0656 07/14/24 0600 07/13/24 0638 07/12/24 06 WBC AUTO K/mcL 27.6* 23.7* 19.8* 20.6* [...] Units 07/16/24 1628 07/16/24 1042 07/16/24 0645 07/15/24 2026 07/15/24 1630 POCT GLUCOSE mg/dL 170* 105* [...] Signed Date: 07/16/2024 12:33 ET Workstation ID: [id number] Transcribed By: Self Edit Transcribed Date: 07/16/2024 [...] - pending clinical improvement HCP -Daughter Dennise [phone], she was updated at bedside today. 60 minutes were spent in patient care including wpre-uw-rrzz time, chart review, discussion with providers, documentation, customer order clerk. High complexity medical decision making. Health Care proxy with Phone number: Disclaimer: Speech recognition software was utilized to dictate portions of this document. Errors in medical data entry clerk may be present. Please call / cortext [...] 2 (CMS/HCC) 02/14/2014 DX:Diabetes mellitus, type 2 ([facility]) Family history of early CAD 03/01/2014 [...] 11/29/2014 DX:Decreased vision Diabetes mellitus, type 2 ([facility]/HCC) 02/14/2014 DX:Diabetes mellitus, type 2 ([facility]) Family history of early CAD 03/01/2014 [...] Ana Chaparro Contreras 07[birth year]2024 1945 79 y.o. [id number] Kwesi Guido, * INTERVAL HISTORY: No events [...] - pending clinical improvement HCP -Dr. Bowden [phone], she was updated at bedside today. Health Care proxy with Phone number: Disclaimer: Speech recognition software was utilized to dictate portions of this document. Errors in medical data entry clerk may be present. Please call / cortext [...] Isidra Florence - 07/14/2024 2:[address] [facility] Physical Therapy Evaluation & Treatment PT Discharge Recommendations: halfway facility placement Staff Recommendations for safe patient [...] is a 79 y.o. female admitted to [facility] on 07/08/2024. Patient Active Problem List Diagnosis Hypertension Hyperlipidemia History of cancer of unknown primary site CKD (chronic kidney disease) stage 4, GFR 15-29 ml/min ([facility]) Iron deficiency anemia Impaired renal function Type 2 diabetes mellitus without complication, without long-term current use of insulin ([facility]) Lung mass Acute encephalopathy Past Medical History: Diagnosis Date Anemia Arthritis Blindness Decreased vision 11/29/2014 DX:Decreased vision Diabetes mellitus, type 2 ([facility]) 02/14/2014 DX:Diabetes mellitus, type 2 ([facility]) Family history of early CAD 03/01/2014 [...] Shower/Tub: Tub/shower unit Prior Function Level of [place]: Independent with mobility and functional transfers Ambulation [...] 1 time per day PT Discharge Recommendations halfway facility placement Equipment Recommended walker PT - [...] is a 79 y.o. female admitted to [facility] on 07/08/2024 for Hyponatremia [E87.1] Acute [...] deficits listedabove and optimize function. PT recommends halfway facility placement when medically stablefor safe discharge [...] 11/29/2014 DX:Decreased vision Diabetes mellitus, type 2 ([facility]/HCC) 02/14/2014 DX:Diabetes mellitus, type 2 ([facility]) Family history of early CAD 03/01/2014 [...] Ana Chaparro Contreras 07/08/2024 1945 79 y.o. [id number] Kwesi Guido, * INTERVAL HISTORY: No events [...] 07/14/24 06 83.5 kg (184 lb) 07/14/24 033 83.6 [...] performed without IV contrast. DLP: 613.10 mGy/cm [employer] VCT Iterative reconstruction technique Findings: Respiratory motion [...] 3. Small bilateral pleural effusions[place] ([id number]) -------- FINAL REPORT -------- Dictated By: Edilia Durbin Dictated Date: 07/12/2024 13:07 ET Assigned Physician: Edilia Durbin Reviewed and Electronically Signed By: Edilia Durbin Signed Date: 07/12/2024 13:19 ET Workstation ID: [id number] Transcribed By: Self Edit Transcribed Date: 07/12/2024 [...] - pending clinical improvement HCP -Dr. Bowden [phone], she was updated at bedside today. Health Care proxy with Phone number: Disclaimer: Speech recognition software was utilized to dictate portions of this document. Errors in medical data entry clerk may be present. Please call / cortext [...] 1720 by Melany Eugene, RN Outcome: Progressing Problem: Mobility Goal: Patient will be able to go up and down a curb/step with the appropriate device 07/13/2024 1720 by Melany Eugene, RN Outcome: Progressing 07/13/2024 1720 by Melany Eugene, RN Outcome: Progressing Goal: Patient will propel [...] 11/29/2014 DX:Decreased vision Diabetes mellitus, type 2 ([facility]) 02/14/2014 DX:Diabetes mellitus, type 2 ([facility]) Family history of early CAD 03/01/2014 [...] Lab Units 07/13/24 0638 07/12/24 0619 07/11/24 06 WBC AUTO K/mcL 20.6* 21.8* 18.4* [...] -Review of spot urine for electrolytes protein [id number] Q [place] is not clearly pointing towards significant prerenal [...] No indication today They agree to have WIRELESS INTERNET INSTALLER if she needs it Discussed with the medical team in detail about the patient Chencho Wayne MD * Kwesi Guido MD - 07/13/2024 10:44 AM EST Ana Contreras 07/08/2024 1945 79 y.o. [id number] Kwesi Guido, * INTERVAL HISTORY: No events [...] 7 days Lab Units 07/12/24 0619 07/11/24 0607/08/24 1110 AST unit/L 32 36 57* ALT [...] - pending clinical improvement HCP -Dr. Bowden [phone], she was updated at bedside today. Health Care proxy with Phone number: Disclaimer: Speech recognition software was utilized to dictate portions of this document. Errors in medical data entry clerk may be present. Please call / cortext [...] Dietary nutrition supplements Two times daily (BID); [facility]; Diabetic Supplement Continuous Question Answer Comment Frequency Two times daily (BID) Location [facility] Supplements Diabetic Supplement 07/11/24 1132 07/11/24 1133 Adult diet [facility]; Cardiac, Diabetic; 75 gm carb/Meal; No Added Salt Diet effective now Question Answer Comment Location [facility] Diet Type (req) Cardiac Diet Type (req) Diabetic Diabetic 75 gm carb/Meal Diet Type (cardiac) No Added Salt 07/11/24 1132 History of presenting illness: Patient is a 79 y.o. female with a history of Past Medical History: Diagnosis Date Anemia Arthritis Blindness Decreased vision 11/29/2014 DX:Decreased vision Diabetes mellitus, type 2 ([facility]) 02/14/2014 DX:Diabetes mellitus, type 2 ([facility]) Family history of early CAD 03/01/2014 [...] at home. No noted food allergies. Appetite SEWING LINE BALER: Poor Intake SEWING LINE BALER: Stable Weight History: Wt Readings from Last [...] or fat depletion Skin: Skin intact per hydrochloric manufacturing supervisor Nutrition Diagnosis: Code Type: None Identified Status: [...] Guido MD - 07/12/2024 11:47 PM EST [facility] Provider Response Note PATIENT: ANA CONTRERAS : 1945 ADMIT DATE: 07/08/2024 2:44 PM DISCH DATE: RESPONDING PROVIDER #: [id number] PROVIDER RESPONSE TEXT: The patient has metabolic encephalopathy. QUERY TEXT: Encephalopathy is documented in the medical record. Please specify the type. H&P 07/08/2024 (3) Patient will be transferred to the care of [facility] staff for further management of their acute [...] EST Ana Contreras 07/08/2024 1945 79 y.o. [id number] Kwesi Guido, * INTERVAL HISTORY: No events [...] from last 7 days Lab Units 07/12/24 0607/11/2462007/10/2451507/09/24624 WBC AUTO K/mcL 21.8* 18.4* 16.9* 18.4* HEMOGLOBIN g/dL 7.2* 7.4* 7.6* 8.3* HEMATOCRIT % 22.6* 23.7* 24.4* 26.1* PLATELETS K/mcL 206 211 277 333 LYMPHS PCT AUTO % 2.7 3.0 3.2 2.8 MONO PCT AUTO % 5.8 5.9 5.9 6.1 EOS PCT AUTO % 2.8 3.3 2.8 1.1 Results from last 7 days Lab Units 07/12/24 0607/11/24 0607/10/24 0507/09/2462407/08/24 1752 07/08/24 1110 SODIUM mmol/L 132* 130* [...] 7 days Lab Units 07/12/24 0807 07/12/24 0607/11/24200207/11/24 1551 07/11/24 1110 POCT GLUCOSE mg/dL 166* [...] Signed Date: 07/10/2024 14:08 ET Workstation ID: [id number] Transcribed By: Self Edit Transcribed Date: 07/10/2024 [...] - pending clinical improvement HCP -Dr. Bowden [phone], she was updated at bedside today. Health Care proxy with Phone number: Disclaimer: Speech recognition software was utilized to dictate portions of this document. Errors in medical data entry clerk may be present. Please call / cortext [...] Ana Chaparro Contreras 07/08/2024 1945 79 y.o. [id number] Kwesi Guido, * INTERVAL HISTORY: No events [...] 07/10/24 0516 07/09/24 0625 07/08/24 2030 07/08/24 1752 [...] Signed Date: 07/10/2024 14:08 ET Workstation ID: [id number] Transcribed By: Self Edit Transcribed Date: 07/10/2024 [...] - pending clinical improvement HCP -Dr. Bowden [phone] Her son Paul was updated at bedside with her permission Health Care proxy with Phone number: Disclaimer: Speech recognition software was utilized to dictate portions of this document. Errors in medical data entry clerk may be present. Please call / cortext me if any questions. Portions of this note such ROS, Exam, Assessment and Plan were copy pasted from previous notes. Information was reviewed and changes were made accordingly. I agree with above mentioned information * Kwesi Guido MD - 07/11/2024 5:44 PM EST [facility] Provider Response Note PATIENT: ANA CONTRERAS : 1945 ADMIT DATE: 07/08/2024 2:44 PM DISCH DATE: RESPONDING PROVIDER #: [id number] PROVIDER RESPONSE TEXT: The patient has traumatic [...] 11/29/2014 DX:Decreased vision Diabetes mellitus, type 2 ([facility]) 02/14/2014 DX:Diabetes mellitus, type 2 (HCC) Family [...] Elmore, OT - 07/11/2024 8:[address] [facility] Occupational Therapy Evaluation DATE: Thursday July 11, 2024 TIME IN: 729 TIME OUT: 819 Pt: Ana Contreras ROOM: 561/561-2 Discharge Recommendation: halfway facility Equipment Recommendation: walker Staff recommendations for [...] IADLs. OT Time Calculation OT Start Time: 729 OT Stop Time: 0820 OT Time Calculation (min): 50 min History of Present Illness: Patient is a 79 y.o. female admitted to [facility] on 07/08/2024. Occupational Therapy evaluation and treatment ordered to assess ADL independence, safety, and functional mobility for discharge planning. Patient Active Problem List Diagnosis Hypertension Hyperlipidemia History of cancer of unknown primary site CKD (chronic kidney disease) stage 4, GFR 15-29 ml/min ([facility]) Iron deficiency anemia Impaired renal function Type 2 diabetes mellitus without complication, without long-term current use of insulin ([facility]) Lung mass Acute encephalopathy Past Medical History: Diagnosis Date Anemia Arthritis Blindness Decreased vision 11/29/2014 DX:Decreased vision Diabetes mellitus, type 2 ([facility]) 02/14/2014 DX:Diabetes mellitus, type 2 ([facility]) Family history of early CAD 03/01/2014 [...] - Evaluation Status: Complete OT Discharge Recommendations: halfway facility placement, Home OT Equipment Recommended: Walker-standard, [...] Goldman PT - 07/10/2024 2:[address] [facility] Physical Therapy Evaluation & Treatment PT Discharge Recommendations: halfway facility placement Staff Recommendations for safe patient [...] is a 79 y.o. female admitted to [facility] on 07/08/2024. Patient Active Problem List Diagnosis Hypertension Hyperlipidemia History of cancer of unknown primary site CKD (chronic kidney disease) stage 4, GFR 15-29 ml/min ([facility]) Iron deficiency anemia Impaired renal function Type 2 diabetes mellitus without complication, without long-term current use of insulin ([facility]) Lung mass Acute encephalopathy Past Medical History: Diagnosis Date Anemia Arthritis Blindness Decreased vision 11/29/2014 DX:Decreased vision Diabetes mellitus, type 2 ([facility]) 02/14/2014 DX:Diabetes mellitus, type 2 ([facility]) Family history of early CAD 03/01/2014 [...] of Steps: 3 Prior Function Level of [place]: Independent with mobility and functional transfers Ambulation [...] of Steps 3 Prior Function Level of [place] Independent with mobility and functional transfers Ambulation [...] 1 time per day PT Discharge Recommendations halfway facility placement PT - Evaluation Status Complete [...] is a 79 y.o. female admitted to [facility] on 07/08/2024 for Hyponatremia [E87.1] Acute [...] listed above and optimize function. PT recommends halfway facility placement when medically stable for safe [...] a 79 y.o. female : 1945 MR#: [id number] SUBJECTIVE CC: Here with fall, RENE, hyponatremia [...] Signed Date: 07/09/2024 09:03 ET Workstation ID: [id number] Transcribed By: Self Edit Transcribed Date: 07/09/2024 [...] - pending clinical improvement HCP -Dr. Bowden [phone] -I met with her at the bedside on 07/09/24 and reviewed the plan. * Tarsha Corea RN - 07/09/2024 10:22 AM EST 07/09/24 1021 Initial Transition Plan Initial Transition Plan [facility] Facility Back up Transition Plan Back up Transition plan Home Health Care Discharge Planning Living Arrangements Alone Type of Residence Private residence Assistive Devices Walker;Cane;Eyeglasses;Dentures upper Support Systems Extended family;Children Anticipated Discharge Needs Home Health RN;PT;OT Discipline following for SNF placement Ocean [employer] ICC confirmed demographics w Dennise, daughter. Barriers: [...] a 79 y.o. female : 1945 MR#: [id number] SUBJECTIVE CC: Here with fall, RENE, hyponatremia [...] Signed Date: 07/08/2024 14:07 ET Workstation ID: [id number] Transcribed By: Self Edit Transcribed Date: 07/08/2024 [...] Signed Date: 07/08/2024 12:27 ET Workstation ID: [id number] Transcribed By: Self Edit Transcribed Date: 07/08/2024 [...] Signed Date: 07/08/2024 12:23 ET Workstation ID: [id number] Transcribed By: Self Edit Transcribed Date: 07/08/2024 [...] Dispo -pending clinical improvement HCP -Dr. Bowden [phone] -I met with her at the bedside [...] infectious concerns): [] Yes / [x] No Carding Machine Operator: [] Yes / [x] No If YES, Cardiac Rhythm: [] NSR, [] SB, [] ST, [] A-FIB, [] A-Flutter, [] Pacemaker, [] 1st Degree HB, [] 2nd Degree HB, [] 3rd Degree HB Reason for Carding Machine Operator: VS: Visit Vitals BP (!) 148/62 (BP [...] and Phone Extension: [place] [phone] * Michelle Christie RN - 07/08/2024 3:51 PM EST 07/08/24 1549 Initial Transition Plan Initial Transition Plan [facility] Facility Back up Transition Plan Back up Transition plan Home Health Care Discharge Planning Contact (Name, Phone #, Relationship) for DC Planning Dennise Nj daughter [phone] Living Arrangements Alone Type of Residence Private residence (apartment with 6 steps to enter/no elevator) Assistive Devices Walker;Cane Support Systems Children;Extended family Medication Coverage Has Med Coverage Under Insurance Plan Yes Anticipated Discharge Needs Home Health PT;RN Discipline following for SNF placement Ocean Forwarder Patient lives alone in a first floor [...] for wide VNA and STR including: [facility] and placed in [facility]. HCP completed and IM given as patient [...] - 07/08/2024 10:32 AM EST Pt to [facility] via em[facility]. Unwitnessed mechanical fall this [...] REFLEX MICROSCOPIC AND CULTURE - Abnormal Specific [place] Urine 1.020 pH, Urine 5.5 Leukocytes, Urine [...] Procedure Abnormality Status --------- ------ CBC auto differential[[id number]] Abnormal Final result Please view results for these tests on the individual orders. TROPONIN I HIGH SENSITIVITY URINALYSIS WITH REFLEX MICROSCOPIC AND CULTURE Narrative: The following orders were created for panel order Urinalysis with reflex microscopic and culture. Procedure Abnormality Status --------- ------ Urinalysis with reflex ...[[id number]] Abnormal Final result Robertson urine culture tube[[id number]] In process Please view results for these [...] Signed Date: 07/08/2024 12:27 ET Workstation ID: [id number] Transcribed By: Self Edit Transcribed Date: 07/08/2024 12:[address] Head wo Contrast Final Result NO ACUTE INTRACRANIAL ABNORMALITY. -------- FINAL REPORT -------- Dictated By: GLENNA SOLITARIO Dictated Date: 07/08/2024 12:22 ET Assigned Physician: GLENNA SOLITARIO Reviewed and Electronically Signed By: GLENNA SOLITARIO Signed Date: 07/08/2024 12:23 ET Workstation ID: [id number] Transcribed By: Self Edit Transcribed Date: 07/08/2024 [...] - 08/05/2024 10:58 AM EST Plan for [facility] EBUS. Source Note - RYLEY Harris - 07/13/2024 10:28 AM EST Patient currently admitted to [facility] for RENE and anemia. Possible need for HD. Will cancel her lance bronch/EBUS scheduled 07/14/24 and reschedule in the next couple weeks. * RYLEY Rivas - 07/08/2024 3:39 PM EST Images from the original note were not included. SONYA HISTORY AND PHYSICAL Please contact author [RYLEY Rivas] via [employer]. Patient: Ana Contreras Admission Date/Time: 07/08/2024 10:31 [...] was found down on the ground by [facility]. She was unsure the details of [...] will be transferred to the care of [facility] staff for further management of their acute encephalopathy, fall. Review of Systems Review of Systems 10 point review of systems negative as otherwise stated in the HPI MEDICAL HISTORY Past Medical History Past Medical History: Diagnosis Date ??? Anemia ??? Arthritis ??? Blindness ??? Decreased vision 11/29/2014 DX:Decreased vision ??? Diabetes mellitus, type 2 ([facility]) 02/14/2014 DX:Diabetes mellitus, type 2 ([facility]) ??? Family history of early CAD [...] Signed Date: 07/08/2024 14:07 ET Workstation ID: [id number] Transcribed By: Self Edit Transcribed Date: 07/08/2024 14:[address] Cervical Spine wo Contrast Final Result No acute cervical spine fracture. -------- FINAL REPORT -------- Dictated By: GLENNA SOLITARIO Dictated Date: 07/08/2024 12:24 ET Assigned Physician: GLENNA SOLITARIO Reviewed and Electronically Signed By: GLENNA SOLITARIO Signed Date: 07/08/2024 12:27 ET Workstation ID: [id number] Transcribed By: Self Edit Transcribed Date: 07/08/2024 12:[address] Head wo Contrast Final Result NO ACUTE INTRACRANIAL ABNORMALITY. -------- FINAL REPORT -------- Dictated By: GLENNA SOLITARIO Dictated Date: 07/08/2024 12:22 ET Assigned Physician: GLENNA SOLITARIO Reviewed and Electronically Signed By: GLENNA SOLITARIO Signed Date: 07/08/2024 12:23 ET Workstation ID: [id number] Transcribed By: Self Edit Transcribed Date: 07/08/2024 [...] onward) Start Ordered 07/08/24 1438 Adult diet [facility]; General; Regular Diet effective now Question Answer Comment Location [facility] Diet Type (req) General General Diet Regular 07/08/24 1444 [x] Lines, tubes, drains: IV access [x] Medication reconciliation Health Care proxy with Phone number Dennise Nj daughter [phone] Cosigned by Wayne Donahue MD at 07/15/2024 [...] L4, and 11R. Surgeon: Cecily Montez MD Level Glass Forming Machine Operator: None Specimens: Above for pathology/cytology/microbiology [...] Insertion of 18g/10cm Bard Powerglide midline Lot: [id number] Exp: 2025-05-28 Indications: Difficult draw with frequent [...] Fela Palomo MD Staff Role Emilie Silva Homicide Squad Captain Dorothea Garay Homicide Squad Captain Lay Roth Homicide Squad Captain Diaz Denise RN CV Invasive Nurse Fela [...] onward) Start Ordered 07/08/24 1438 Adult diet [facility]; General; Regular Diet effective now Question Answer Comment Location [facility] Diet Type (req) General General Diet Regular [...] at home. No noted food allergies. Appetite SEWING LINE BALER: Poor Intake SEWING LINE BALER: Decreased Weight History: Wt Readings from Last [...] stable between 168-178 lb over past year ([id number] lb). Weight in 12/2022 was 184 lb indicating 10 lb (5.4%) weight loss over course of 18 months. Subjective Assessment: Pt seen for nutrition consult/ high MST score. Pt admitted for fall, RENE and hyponatremia. Pt recently diagnosed with lung nodule with planned bronchoscopy and EBUS. Seen by OT and PT- recommending discharge to retirement facility. 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 [employer] Family History Problem Relation Name Age of [...] 0840 07/10/24 0516 07/09/24 0859 07/09/24 0625 07/08/246 07/08/24 2030 SODIUM mmol/L -- -- 133 -- [...] should gradually improve, can get input from stripper machine operator, please call me for an y question documented in this encounter Plan of Treatment Upcoming Encounters Date Type Department Care Team (Late st Contact Info) Description 08/23/2024 3:00 PM EST Office Visit Gastroenterology - [address] [address] Josiane Smith, JUNITO [address] [address] 08/24/2024 11:15 AM EST Office Visit Internal Medicine - [address] [place] [address] Eloisa Vázquez, [address] [place] [address] 09/05/2024 10:00 AM EDT Office Visit Endocrinology - [place] [address] [place] [address] Kathy Michelle PA [address] [place] [address] 09/06/2024 11:00 AM EDT Ancillary Procedure [facility] - [address] [place] [address] Pending Results Name Type Priority Associated Diagnoses [...] Routine 025 12:20 PM EST Pulmonary nodule CT BRONCHOSCOPY RIGID/FLEXIBLE W/EBUS >=3 MEDIASTINAL/HILAR LYMPH NODES 08/05/2024 11:46 AM EST Pulmonary nodule CT BRONCHOSCOPY INCL FLUROSCOPIC GUIDANCE W PLCMNT FIDUCIAL MARKER SGL/MULT 08/05/2024 11:46 AM EST Pulmonary nodule CT BRONCHOSCOPY RIGID/FLEXIBLE INCL FLUORO W/THERAPY ASPIRATION INITIAL [...] BLOOD Routine 07/11/2024 8: [address] IMMUNOFIXATION ELECTROPHORESIS SERUM Routine 07/11/2024 6:21 AM [...] BLOOD Routine 07/08/2024 6: [address] PROTEIN ELECTROPHORETIC FRACTIONATION & QUANTITATION SERUM Routine [...] us Steve Cruz MD LAB POINT OF NH RE TEST DOCKED DEVICE UNSOLICITED RESULTS Final Result Performing Organization Address City/[facility]/ZIP Co de Phone Number [facility] [address] [place] [address], * (ABNORMAL) POCT Glucose, blood (08/06/2024 7:26 AM EST) Glucose POCT 66(L) 70 - 100 mg/dL 08/06/2024 7:27 AM EST [facility] Blood Capillary blood specimen / Unknown 08/06/2024 7:26 AM EST 08/06/2024 7:28 AM EST us Steve Cruz MD LAB POINT OF NH RE TEST DOCKED DEVICE UNSOLICITED RESULTS Final Result [facility] [address] [place] [address], * (ABNORMAL) POCT Glucose, blood (08/05/2024 8:08 PM EST) Glucose POCT 263(H) 70 - 100 mg/dL 08/05/2024 8:08 PM EST [facility] Blood Capillary blood specimen / Unknown 08/05/2024 8:08 PM EST 08/05/2024 8:09 PM EST us Steve Cruz MD LAB POINT OF CA RE TEST DOCKED DEVICE UNSOLICITED RESULTS Final Result Performing Organization Address [facility] Co de Phone Number [facility] [address] [place] [address], [place] [phone] * (ABNORMAL) POCT Glucose, blood (08/05/2024 4:40 PM EST) Glucose POCT 270(H) 70 - 100 mg/dL 08/05/2024 4:42 PM EST [facility] Blood Capillary blood specimen / Unknown 08/05/2024 4:40 PM EST 08/05/2024 4:43 PM EST Steve Cruz MD LAB POINT OF CA RE TEST DOCKED DEVICE UNSOLICITED RESULTS Final Result Performing Organization Address [facility] de Phone Number [facility] [address] [place] [address], [place] [phone] * XR Chest 1 View (08/05/2024 1:43 [...] Signed Date: 08/05/2024 13:49 ET Workstation ID: [id number] Transcribed By: Self Edit Transcribed Date: 08/05/2024 [...] Signed Date: 08/05/2024 13:49 ET Workstation ID: [id number] Transcribed By: Self Edit Transcribed Date: 08/05/2024 13:46 ET Cecily Montez MD IMG XR PROCEDURES Final Result * (ABNORMAL) POCT Glucose, blood (08/05/2024 1:40 PM EST) Pathologist [facility] Glucose POCT 148(H) 70 - 100 mg/dL 08/05/2024 1:41 PM EST [facility] Blood Capillary blood specimen / Unknown 08/05/2024 1:40 PM EST 08/05/2024 1:42 PM EST Steve Cruz MD LAB POINT OF CA RE TEST DOCKED DEVICE UNSOLICITED RESULTS Final Result [facility] [address] [place] [address], [place] [phone] * Concentration (08/05/2024 12:32 PM EST) Pathologist [facility] [employer] Concentration Performed 025 3:05 PM EST [facility] Structure of upper lobe of right lung / Unknown 08/05/2024 12:32 PM EST 08/05/2024 1:17 PM EST Narrative [facility] - 08/06/2024 3:05 PM EST Performed at: ??01 - [facility] [address] ??[id number] Restaurant Host: Diane Belle MD, Phone: ??[phone] us Cecily Montez MD LAB BLOOD ORDERABLES [...] ORDER SYLVAIN Final Result Performing Organization Address [facility] Co de Phone Number [facility] [address] [place] [address], [place] [phone] * Culture bronchial with gram stain (08/05/2024 12:32 PM EST) Bronchial Culture No growth at 3 days 08/08/2024 9:42 AM EST [facility] Gram Stain Result No polymorphonuclear leukocytes, No epithelial cells, and No organisms noted 08/08/2024 9:42 AM EST [facility] Wash Structure of upper lobe of right lung / Unknown 08/05/2024 12:32 PM EST 08/05/2024 1:17 PM EST us Cecily Montez MD LAB MICROBIOLOGY - GENERAL ORDER SYLVAIN Final Result Performing Organization Address City/[facility]/ZIP Co de Phone Number [facility] [address] [place] [address], [place] [phone] * XR Chest 1 View (08/05/2024 12:29 [...] Signed Date: 08/08/2024 07:52 ET Workstation ID: [id number] Transcribed By: Self Edit Transcribed Date: 08/08/2024 [...] Signed Date: 08/08/2024 07:52 ET Workstation ID: [id number] Transcribed By: Self Edit Transcribed Date: 08/08/2024 [...] lymph node elements present. 08/09/2024 1:[address] [facility] Specimen A Adequacy Satisfactory for evaluation 08/09/2024 1:[address] [facility] Specimen B Adequacy Satisfactory for evaluation 08/09/2024 1:[address] [facility] Specimen C Adequacy Satisfactory for evaluation 08/09/2024 1:[address] [facility] Specimen D Adequacy Satisfactory for evaluation 08/09/2024 1:[address] [facility] Specimen E Adequacy Specimen processed and examined, but unsatisfactory for eval of abnormal epithelial 08/09/2024 1:[address] [facility] Specimen F Adequacy Satisfactory for evaluation 08/09/2024 1:[address] [facility] Gross Description A. Lung, Right Upper Lobe, (Lance bronch) Right upper lobe nodule: Received in [...] time 54 hours. 08/09/2024 1:04 PM EST [facility] Disclaimer Unless otherwise specified, all tissue is 10% NB formalin fixed and paraffin embedded. Technical cytopathology services provided by [facility], at [address] [place] [address] (CLIA # [id number]/Gladys Prince MD, Therapist Asst.) 08/09/2024 1:04 PM EST [facility] Brushing, function (observable entity) Structure [...] PM EST 08/05/2024 2:31 PM EST us Cecily Montez MD LAB CYTOLOGY ORDERABLES Final Re sult [facility] [address] [place] [address], * (ABNORMAL) Basic metabolic panel (08/05/2024 7:04 AM EST) Sodium 133 133 - 145 mmol/L LAB CHEMISTRY METHOD 08/05/2024 8:[address] [facility] Potassium 4.5 3.5 - 5.5 mmol/L LAB CHEMISTRY METHOD 08/05/2024 8:[address] [facility] Chloride 96 96 - 110 mmol/L LAB CHEMISTRY METHOD 08/05/2024 8:[address] [facility] CO2 32 21 - 32 mmol/L LAB CHEMISTRY METHOD 08/05/2024 8:[address] [facility] Anion Gap 5 3 - 11 LAB CHEMISTRY METHOD 08/05/2024 8:[address] [facility] Glucose 138(H) 70 - 100 mg/dL LAB CHEMISTRY METHOD 08/05/2024 8:[address] [facility] BUN 53(H) 5 - 25 mg/dL LAB CHEMISTRY METHOD 08/05/2024 8:[address] [facility] Creatinine 3.91(H) 0.50 - 1.10 mg/dL LAB CHEMISTRY METHOD 08/05/2024 8:[address] [facility] eGFR 11(L) >=60 mL/min/1. 73m2 LAB CHEMISTRY METHOD 08/05/2024 8:[address] [facility] Comment:Calculation based on the??Chronic Kidney Disease Epidemiology Collaboration (CKD-EPI) equation refit??without adjustment for race. BUN/Creatinine Ratio 13.6 LAB CHEMISTRY METHOD 08/05/2024 8:01 AM EST [facility] Calcium 8.4(L) 8.5 - 10.5 mg/dL LAB CHEMISTRY METHOD 08/05/2024 8:[address] [facility] Blood Venous blood specimen / Unknown Venipuncture / Unknown 08/05/2024 7:04 AM EST 08/05/2024 7:34 AM EST Steve Cruz MD LAB BLOOD ORDERABLES Fi nal Result [facility] [address] [place] [address], * (ABNORMAL) CBC - Every 3 Days (08/05/2024 7:03 AM EST) WBC 8.8 4.8 - 10.8 K/mcL LAB HEMETOLOGY METHOD 08/05/2024 7:[address] [facility] RBC 2.90(L) 3.80 - 4.80 M/mcL LAB HEMETOLOGY METHOD 08/05/2024 7:[address] [facility] Hemoglobin 7.9(L) 11.5 - 16.0 g/dL LAB HEMETOLOGY METHOD 08/05/2024 7:[address] [facility] Hematocrit 25.5(L) 35.0 - 47.0 % LAB HEMETOLOGY METHOD 08/05/2024 7:[address] [facility] MCV 87.6 79.0 - 98.0 FL LAB HEMETOLOGY METHOD 08/05/2024 7:[address] [facility] MCH 27.1 27.0 - 32.0 pcg LAB HEMETOLOGY METHOD 08/05/2024 7:[address] [facility] MCHC 31.0(L) 32.0 - 37.0 g/dL LAB HEMETOLOGY METHOD 08/05/2024 7:42 AM EST [facility] RDW 21.9(H) 11.0 - 15.0 % LAB HEMETOLOGY METHOD 08/05/2024 7:[address] [facility] Platelets 180 130 - 400 K/mcL LAB HEMETOLOGY METHOD 08/05/2024 7:[address] [facility] MPV 10.8 7.0 - 11.0 FL LAB HEMETOLOGY METHOD 08/05/2024 7:[address] [facility] NRBC 0.0 <1.0 % LAB HEMETOLOGY METHOD 08/05/2024 7:[address] [facility] NRBC Absolute 0.00 <0.10 K/mcL LAB HEMETOLOGY METHOD 08/05/2024 7:[address] [facility] Blood Venous blood specimen / Unknown Venipuncture / Unknown 08/05/2024 7:03 AM EST 08/05/2024 7:34 AM EST Lencho Stuart MD LAB BLOOD ORDERABLES Final R esult [facility] [address] [place] [address], * (ABNORMAL) POCT Glucose, blood (08/04/2024 8:39 PM EST) Glucose POCT 352(H) 70 - 100 mg/dL 08/04/2024 8:40 PM EST [facility] Blood Capillary blood specimen / Unknown 08/04/2024 8:39 PM EST 08/04/2024 8:41 PM EST Steve Cruz MD LAB POINT OF CA RE TEST DOCKED DEVICE UNSOLICITED RESULTS Final Result [facility] [address] [place] [address], * (ABNORMAL) POCT Glucose, blood (08/04/2024 5:36 PM EST) Glucose POCT 376(H) 70 - 100 mg/dL 08/04/2024 5:37 PM EST [facility] Blood Capillary blood specimen / Unknown 08/04/2024 5:36 PM EST 08/04/2024 5:38 PM EST us Steve Cruz MD LAB POINT OF CA RE TEST DOCKED DEVICE UNSOLICITED RESULTS Final Result Performing Organization Address [facility]/ZIP Co de Phone Number [facility] [address] [place] [address], * (ABNORMAL) POCT Glucose, blood (08/04/2024 11:05 AM EST) Glucose POCT 130(H) 70 - 100 mg/dL 08/04/2024 11:07 AM EST [facility] Blood Capillary blood specimen / Unknown 08/04/2024 11:05 AM EST 08/04/2024 11:08 AM EST us Steve Cruz MD LAB POINT OF CA RE TEST DOCKED DEVICE UNSOLICITED RESULTS Final Result [facility] [address] [place] [address], * (ABNORMAL) POCT Glucose, blood (08/04/2024 8:03 AM EST) Glucose POCT 116(H) 70 - 100 mg/dL 08/04/2024 8:05 AM EST [facility] Blood Capillary blood specimen / Unknown 08/04/2024 8:03 AM EST 08/04/2024 8:07 AM EST us Steve Cruz MD LAB POINT OF CA RE TEST DOCKED DEVICE UNSOLICITED RESULTS Final Result Performing Organization Address [facility]/ZIP Co de Phone Number [facility] [address] [place] [address], * (ABNORMAL) Creatinine, Serum - Every 7 [...] ORDERABLES Final Re sult Performing Organization Address City/[facility]/ZIP Co de Phone Number [facility] [address] [place] [address], [place] [phone] * (ABNORMAL) POCT Glucose, blood (08/03/2024 9:59 PM EST) Glucose POCT 135(H) 70 - 100 mg/dL 08/03/2024 9:59 PM EST [facility] Blood Capillary blood specimen / Unknown 08/03/2024 9:59 PM EST 08/03/2024 10:00 PM EST Steve Cruz MD LAB POINT OF CA RE TEST DOCKED DEVICE UNSOLICITED RESULTS Final Result [facility] [address] [place] [address], [place] [phone] * (ABNORMAL) POCT Glucose, blood (08/03/2024 3:47 PM EST) Glucose POCT 304(H) 70 - 100 mg/dL 08/03/2024 3:48 PM EST [facility] Blood Capillary blood specimen / Unknown 08/03/2024 3:47 PM EST 08/03/2024 3:49 PM EST Steve Cruz MD LAB POINT OF CA RE TEST DOCKED DEVICE UNSOLICITED RESULTS Final Result Performing Organization Address City/[facility]/ZIP Co de Phone Number [facility] [address] [place] [address], [place] [phone] * (ABNORMAL) POCT Glucose, blood (08/03/2024 12:35 PM EST) Glucose POCT 125(H) 70 - 100 mg/dL 08/03/2024 12:59 PM EST [facility] Blood Capillary blood specimen / Unknown 08/03/2024 12:35 PM EST 08/03/2024 1:00 PM EST Steve Cruz MD LAB POINT OF CA RE TEST DOCKED DEVICE UNSOLICITED RESULTS Final Result Performing Organization Address City/[facility]/ZIP Co de Phone Number [facility] [address] [place] [address], [place] [phone] * Hepatitis B surface antigen with reflex to confirmation (08/03/2024 8:49 AM EST) Hepatitis B Surface Ag Negative Negative LAB CHEMISTRY METHOD 08/03/2024 10:11 AM EST [facility] Blood Venous blood specimen / Unknown Venipuncture / Unknown 08/03/2024 8:49 AM EST 08/03/2024 9:22 AM EST [facility] - 08/03/2024 10:11 AM EST Over the counter supplements containing high doses of biotin may interfere with this assay. ??If interference is suspected, patients shoud be retested after refraining from biotin supplements for 72 hours. Steve Cruz MD LAB BLOOD ORDERABLES Fi nal Result [facility] [address] [place] [address], * Hepatitis B surface antibody quantitative (08/03/2024 8:49 AM EST) Hepatitis B Surface Ab Negative Negative LAB CHEMISTRY METHOD 08/03/2024 9:59 AM EST [facility] Hepatitis B Surface Ab Quantitative <3.1 mIU/mL LAB CHEMISTRY METHOD 08/03/2024 9:59 AM EST [facility] Blood Venous blood specimen / Unknown Venipuncture / Unknown 08/03/2024 8:49 AM EST 08/03/2024 9:22 AM EST [facility] - 08/03/2024 9:59 AM EST >=10 mIU/mL is considered to be consistent with immunity. Steve Cruz MD LAB BLOOD ORDERABLES Fi nal Result [facility] [address] [place] [address], * (ABNORMAL) Complete blood count (08/03/2024 8:49 AM EST) WBC 8.5 4.8 - 10.8 K/mcL LAB HEMETOLOGY METHOD 08/03/2024 9:[address] [facility] RBC 2.90(L) 3.80 - 4.80 M/mcL LAB HEMETOLOGY METHOD 08/03/2024 9:[address] [facility] Hemoglobin 7.7(L) 11.5 - 16.0 g/dL LAB HEMETOLOGY METHOD 08/03/2024 9:[address] [facility] Hematocrit 24.6(L) 35.0 - 47.0 % LAB HEMETOLOGY METHOD 08/03/2024 9:[address] [facility] MCV 84.2 79.0 - 98.0 FL LAB HEMETOLOGY METHOD 08/03/2024 9:[address] [facility] MCH 26.4(L) 27.0 - 32.0 pcg LAB HEMETOLOGY METHOD 08/03/2024 9:[address] [facility] MCHC 31.3(L) 32.0 - 37.0 g/dL LAB HEMETOLOGY METHOD 08/03/2024 9:[address] [facility] RDW 21.8(H) 11.0 - 15.0 % LAB HEMETOLOGY METHOD 08/03/2024 9:[address] [facility] Platelets 186 130 - 400 K/mcL LAB HEMETOLOGY METHOD 08/03/2024 9:[address] [facility] MPV 10.5 7.0 - 11.0 FL LAB HEMETOLOGY METHOD 08/03/2024 9:[address] [facility] NRBC 0.0 <1.0 % LAB HEMETOLOGY METHOD 08/03/2024 9:[address] [facility] NRBC Absolute 0.00 <0.10 K/mcL LAB HEMETOLOGY METHOD 08/03/2024 9:[address] [facility] Blood Venous blood specimen / Unknown Venipuncture / Unknown 08/03/2024 8:49 AM EST 08/03/2024 9:22 AM EST Steve Cruz MD LAB BLOOD ORDERABLES Fi nal Result [facility] [address] [place] [address], * (ABNORMAL) CBC auto differential (08/03/2024 6:01 AM EST) WBC 7.5 4.8 - 10.8 K/mcL LAB HEMETOLOGY METHOD 08/03/2024 7:[address] [facility] RBC 2.90(L) 3.80 - 4.80 M/mcL LAB HEMETOLOGY METHOD 08/03/2024 7:[address] [facility] Hemoglobin 7.8(L) 11.5 - 16.0 g/dL LAB HEMETOLOGY METHOD 08/03/2024 7:[address] [facility] Hematocrit 24.7(L) 35.0 - 47.0 % LAB HEMETOLOGY METHOD 08/03/2024 7:[address] [facility] MCV 85.8 79.0 - 98.0 FL LAB HEMETOLOGY METHOD 08/03/2024 7:[address] [facility] MCH 27.1 27.0 - 32.0 pcg LAB HEMETOLOGY METHOD 08/03/2024 7:[address] [facility] MCHC 31.6(L) 32.0 - 37.0 g/dL LAB HEMETOLOGY METHOD 08/03/2024 7:[address] [facility] RDW 21.6(H) 11.0 - 15.0 % LAB HEMETOLOGY METHOD 08/03/2024 7:[address] [facility] Platelets 188 130 - 400 K/mcL LAB HEMETOLOGY METHOD 08/03/2024 7:[address] [facility] MPV 11.2(H) 7.0 - 11.0 FL LAB HEMETOLOGY METHOD 08/03/2024 7:[address] [facility] NRBC 0.0 <1.0 % LAB HEMETOLOGY METHOD 08/03/2024 7:[address] [facility] NRBC Absolute 0.00 <0.10 K/mcL LAB HEMETOLOGY METHOD 08/03/2024 7:[address] [facility] Neutrophils Relative 77.2 % LAB HEMETOLOGY METHOD 08/03/2024 7:[address] [facility] Lymphocytes Relative 12.8 % LAB HEMETOLOGY METHOD 08/03/2024 7:[address] [facility] Monocytes Relative 8.0 % LAB HEMETOLOGY METHOD 08/03/2024 7:[address] [facility] Eosinophils Relative 0.4 % LAB HEMETOLOGY METHOD 08/03/2024 7:[address] [facility] Basophils Relative 0.1 % LAB HEMETOLOGY METHOD 08/03/2024 7:[address] [facility] Immature Granulocytes Relative 1.5 % LAB HEMETOLOGY METHOD 08/03/2024 7:[address] [facility] Neutrophils Absolute 5.78 1.50 - 7.00 K/mcL LAB HEMETOLOGY METHOD 08/03/2024 7:[address] [facility] Lymphocytes Absolute 0.96(L) 1.00 - 5.00 K/mcL LAB HEMETOLOGY METHOD 08/03/2024 7:[address] [facility] Monocytes Absolute 0.60 0.20 - 1.00 K/mcL LAB HEMETOLOGY METHOD 08/03/2024 7:[address] [facility] Eosinophils Absolute 0.03 0.00 - [...] ORDERABLES Fi nal Result Performing Organization Address City/[facility]/ZIP Co de Phone Number [facility] [address] [place] [address], [place] [phone] * Magnesium (08/03/2024 6:01 AM EST) Magnesium 2.1 1.9 - 2.6 mg/dL LAB CHEMISTRY METHOD 08/03/2024 8:11 AM EST [facility] Blood Venous blood specimen / Unknown Venipuncture / Unknown 08/03/2024 6:01 AM EST 08/03/2024 7:27 AM EST us Steve Cruz MD LAB BLOOD ORDERABLES Fi nal Result [facility] [address] [place] [address], [place] [phone] * Phosphorus (08/03/2024 6:01 AM EST) Phosphorus 4.3 2.5 - 4.5 mg/dL LAB CHEMISTRY METHOD 08/03/2024 8:11 AM EST [facility] Blood Venous blood specimen / Unknown Venipuncture / Unknown 08/03/2024 6:01 AM EST 08/03/2024 7:27 AM EST us Steve Cruz MD LAB BLOOD ORDERABLES Fi nal Result Performing Organization Address [facility] Co de Phone Number [facility] [address] [place] [address], [place] [phone] * (ABNORMAL) POCT Glucose, blood (08/02/2024 7:33 PM EST) Glucose POCT 241(H) 70 - 100 mg/dL 08/02/2024 7:34 PM EST [facility] Blood Capillary blood specimen / Unknown 08/02/2024 7:33 PM EST 08/02/2024 7:35 PM EST us Steve Cruz MD LAB POINT OF CA RE TEST DOCKED DEVICE UNSOLICITED RESULTS Final Result Performing Organization Address [facility] Co de Phone Number [facility] [address] [place] [address], [place] [phone] * (ABNORMAL) POCT Glucose, blood (08/02/2024 4:27 PM EST) [facility] Signature Glucose POCT 212(H) 70 - 100 mg/dL 08/02/2024 4:29 PM EST [facility] Blood Capillary blood specimen / Unknown 08/02/2024 4:27 PM EST 08/02/2024 4:29 PM EST us Steve Cruz MD LAB POINT OF CA RE TEST DOCKED DEVICE UNSOLICITED RESULTS Final Result Performing Organization Address [facility] Co de Phone Number [facility] [address] [place] [address], [place] [phone] * Type and screen (08/02/2024 3:04 PM EST) ABO Group O 08/02/2024 4:[address] [facility] Rh Type Positive 08/02/2024 4:[address] [facility] Antibody Screen Negative 08/02/2024 4:[address] [facility] Blood Venous blood specimen / Unknown Venipuncture / Unknown 08/02/2024 3:04 PM EST 08/02/2024 4:07 PM EST Steve Cruz MD LAB BLOOD BANK TEST ORD ERABLES Final Result [facility] [address] [place] [address], * Prepare RBC: 1 Units (08/02/2024 2:09 PM EST) Product Code [id number] 08/02/2024 6:[address] [facility] Unit Number [id number] 08/02/19 6:[address] [facility] Crossmatch Compatible 08/02/2024 5:[address] [facility] Dispense Status Transfused 08/02/2024 6:[address] [facility] Unit ABO Rh OPOS 08/02/2024 6:[address] [facility] Unit Expiration Date Time [id number] 08/02/2024 6:[address] [facility] Unit Blood Type 5100 08/02/2024 6:[address] [facility] Blood Venous blood specimen / Unknown 08/02/2024 2:09 PM EST 08/02/2024 4:07 PM EST Steve Cruz MD BLOOD BANK PRODUCT ORDE RABLES Final Result [facility] [address] [place] [address], [place] [phone] * (ABNORMAL) POCT Glucose, blood (08/02/2024 11:26 AM EST) [facility] Glucose POCT 153(H) 70 - 100 mg/dL 08/02/2024 11:41 AM EST [facility] Blood Capillary blood specimen / Unknown 08/02/2024 11:26 AM EST 08/02/2024 11:43 AM EST us Steve Cruz MD LAB POINT OF CA RE TEST DOCKED DEVICE UNSOLICITED RESULTS Final Result [facility] [address] [place] [address], [place] [phone] * POCT Glucose, blood (08/02/2024 7:46 AM EST) [facility] Glucose POCT 90 70 - 100 mg/dL 08/02/2024 7:46 AM EST [facility] Blood Capillary blood specimen / Unknown 08/02/2024 7:46 AM EST 08/02/2024 7:48 AM EST us Steve Cruz MD LAB POINT OF CA RE TEST DOCKED DEVICE UNSOLICITED RESULTS Final Result [facility] [address] [place] [address], [place] [phone] * (ABNORMAL) CBC - Every 3 Days (08/02/2024 6:06 AM EST) WBC 8.0 4.8 - 10.8 K/[facility] LAB HEMETOLOGY METHOD 08/02/2024 7:45 AM EST [facility] RBC 2.70(L) 3.80 - 4.80 M/[facility] LAB HEMETOLOGY METHOD 08/02/2024 7:[address] [facility] Hemoglobin 7.0(L) 11.5 - 16.0 g/dL LAB HEMETOLOGY METHOD 08/02/2024 7:[address] [facility] Hematocrit 22.9(L) 35.0 - 47.0 % LAB HEMETOLOGY METHOD 08/02/2024 7:[address] [facility] MCV 84.2 79.0 - 98.0 FL LAB HEMETOLOGY METHOD 08/02/2024 7:[address] [facility] MCH 25.7(L) 27.0 - 32.0 pcg LAB HEMETOLOGY METHOD 08/02/2024 7:[address] [facility] MCHC 30.6(L) 32.0 - 37.0 g/dL LAB HEMETOLOGY METHOD 08/02/2024 7:[address] [facility] RDW 23.4(H) 11.0 - 15.0 % LAB HEMETOLOGY METHOD 08/02/2024 7:[address] [facility] Platelets 205 130 - 400 K/mcL LAB HEMETOLOGY METHOD 08/02/2024 7:[address] [facility] MPV 11.0 7.0 - 11.0 FL LAB HEMETOLOGY METHOD 08/02/2024 7:[address] [facility] NRBC 0.0 <1.0 % LAB HEMETOLOGY METHOD 08/02/2024 7:[address] [facility] NRBC Absolute 0.00 <0.10 K/mcL LAB HEMETOLOGY METHOD 08/02/2024 7:[address] [facility] Blood Venous blood specimen / Unknown Venipuncture / Unknown 08/02/2024 6:06 AM EST 08/02/2024 7:23 AM EST Estdimas Stuart MD LAB BLOOD ORDERABLES Final R esult [facility] [address] [place] [address], * (ABNORMAL) POCT Glucose, blood (08/01/2024 7:43 PM EST) Glucose POCT 209(H) 70 - 100 mg/dL 08/01/2024 7:44 PM EST [facility] Blood Capillary blood specimen / Unknown 08/01/2024 7:43 PM EST 08/01/2024 7:44 PM EST us Steve Cruz MD LAB POINT OF CA RE TEST DOCKED DEVICE UNSOLICITED RESULTS Final Result Performing Organization Address [facility]/ZIP Co de Phone Number [facility] [address] [place] [address], * (ABNORMAL) POCT Glucose, blood (08/01/2024 5:20 PM EST) Glucose POCT 168(H) 70 - 100 mg/dL 08/01/2024 5:21 PM EST [facility] Blood Capillary blood specimen / Unknown 08/01/2024 5:20 PM EST 08/01/2024 5:22 PM EST us Steve Cruz MD LAB POINT OF CA RE TEST DOCKED DEVICE UNSOLICITED RESULTS Final Result Performing Organization Address City/[facility]/ZIP Co de Phone Number [facility] [address] [place] [address], [place] [phone] * (ABNORMAL) POCT Glucose, blood (08/01/2024 11:03 AM EST) Glucose POCT 149(H) 70 - 100 mg/dL 08/01/2024 11:03 AM EST [facility] Blood Capillary blood specimen / Unknown 08/01/2024 11:03 AM EST 08/01/2024 11:04 AM EST us Steve Cruz MD LAB POINT OF CA RE TEST DOCKED DEVICE UNSOLICITED RESULTS Final Result Performing Organization Address [facility]/ZIP Co de Phone Number [facility] [address] [place] [address], [place] [phone] * (ABNORMAL) POCT Glucose, blood (08/01/2024 8:59 AM EST) Glucose POCT 128(H) 70 - 100 mg/dL 08/01/2024 9:01 AM EST [facility] Blood Capillary blood specimen / Unknown 08/01/2024 8:59 AM EST 08/01/2024 9:02 AM EST us Steve Cruz MD LAB POINT OF CA RE TEST DOCKED DEVICE UNSOLICITED RESULTS Final Result Performing Organization Address [facility] de Phone Number [facility] [address] [place] [address], [place] [phone] * POCT Glucose, blood (08/01/2024 7:34 AM EST) Glucose POCT 75 70 - 100 mg/dL 08/01/2024 7:35 AM EST [facility] Blood Capillary blood specimen / Unknown 08/01/2024 7:34 AM EST 08/01/2024 7:36 AM EST us Steve Cruz MD LAB POINT OF CA RE TEST DOCKED DEVICE UNSOLICITED RESULTS Final Result Performing Organization Address City/[facility]/ZIP Co de Phone Number [facility] [address] [place] [address], [place] [phone] * (ABNORMAL) CBC auto differential (08/01/2024 6:59 AM EST) [facility] WBC 9.2 4.8 - 10.8 K/mcL LAB HEMETOLOGY METHOD 08/01/2024 8:[address] [facility] RBC 3.00(L) 3.80 - 4.80 M/mcL LAB HEMETOLOGY METHOD 08/01/2024 8:[address] [facility] Hemoglobin 7.7(L) 11.5 - 16.0 g/dL LAB HEMETOLOGY METHOD 08/01/2024 8:[address] [facility] Hematocrit 25.2(L) 35.0 - 47.0 % LAB HEMETOLOGY METHOD 08/01/2024 8:[address] [facility] MCV 84.6 79.0 - 98.0 FL LAB HEMETOLOGY METHOD 08/01/2024 8:[address] [facility] MCH 25.8(L) 27.0 - 32.0 pcg LAB HEMETOLOGY METHOD 08/01/2024 8:[address] [facility] MCHC 30.6(L) 32.0 - 37.0 g/dL LAB HEMETOLOGY METHOD 08/01/2024 8:[address] [facility] RDW 23.5(H) 11.0 - 15.0 % LAB HEMETOLOGY METHOD 08/01/2024 8:[address] [facility] Platelets 220 130 - 400 K/mcL LAB HEMETOLOGY METHOD 08/01/2024 8:[address] [facility] MPV 11.3(H) 7.0 - 11.0 FL LAB HEMETOLOGY METHOD 08/01/2024 8:[address] [facility] NRBC 0.0 <1.0 % LAB HEMETOLOGY METHOD 08/01/2024 8:[address] [facility] NRBC Absolute 0.00 <0.10 K/mcL LAB HEMETOLOGY METHOD 08/01/2024 8:[address] [facility] Neutrophils Relative 77.4 % LAB HEMETOLOGY METHOD 08/01/2024 8:[address] [facility] Lymphocytes Relative 12.6 % LAB HEMETOLOGY METHOD 08/01/2024 8:[address] [facility] Monocytes Relative 7.6 % LAB HEMETOLOGY METHOD 08/01/2024 8:[address] [facility] Eosinophils Relative 0.9 % LAB HEMETOLOGY METHOD 08/01/2024 8:[address] [facility] Basophils Relative 0.1 % LAB HEMETOLOGY METHOD 08/01/2024 8:[address] [facility] Immature Granulocytes Relative 1.4 % LAB HEMETOLOGY METHOD 08/01/2024 8:[address] [facility] Neutrophils Absolute 7.09(H) 1.50 - 7.00 K/mcL LAB HEMETOLOGY METHOD 08/01/2024 8:[address] [facility] Lymphocytes Absolute 1.16 1.00 - 5.00 K/mcL LAB HEMETOLOGY METHOD 08/01/2024 8:[address] [facility] Monocytes Absolute 0.70 0.20 - 1.00 K/mcL LAB HEMETOLOGY METHOD 08/01/2024 8:[address] [facility] Eosinophils Absolute 0.08 0.00 - 0.50 K/mcL LAB HEMETOLOGY METHOD 08/01/2024 8:[address] [facility] Basophils Absolute 0.01 0.00 - 0.20 K/mcL LAB HEMETOLOGY METHOD 08/01/2024 8:[address] [facility] Immature Granulocytes Absolute 0.13(H) 0.00 - 0.03 K/mcL LAB HEMETOLOGY METHOD 08/01/2024 8:[address] [facility] Blood Venous blood specimen / Unknown Existing Catheter / Unknown 08/01/2024 6:59 AM EST 08/01/2024 8:07 AM EST us Jonny Mathur MD LAB BLOOD ORDERABLES Final Re sult [facility] [facility] [address] [place] [address], [place] [phone] * (ABNORMAL) Basic metabolic panel (08/01/2024 6:59 AM EST) Sodium 132(L) 133 - 145 mmol/L LAB CHEMISTRY METHOD 08/01/2024 8:[address] [facility] Potassium 4.7 3.5 - 5.5 mmol/L LAB CHEMISTRY METHOD 08/01/2024 8:[address] [facility] Chloride 96 96 - 110 mmol/L LAB CHEMISTRY METHOD 08/01/2024 8:[address] [facility] CO2 30 21 - 32 mmol/L LAB CHEMISTRY METHOD 08/01/2024 8:[address] [facility] Anion Gap 6 3 - 11 LAB CHEMISTRY METHOD 08/01/2024 8:[address] [facility] Glucose 74 70 - 100 mg/dL LAB CHEMISTRY METHOD 08/01/2024 8:[address] [facility] BUN 71(H) 5 - 25 mg/dL LAB CHEMISTRY METHOD 08/01/2024 8:[address] [facility] Creatinine 4.62(H) 0.50 - 1.10 mg/dL LAB CHEMISTRY METHOD 08/01/2024 8:[address] [facility] eGFR 9(L) >=60 mL/min/1. 73m2 LAB CHEMISTRY METHOD 08/01/2024 8:[address] [facility] Comment:Calculation based on the??Chronic Kidney Disease Epidemiology Collaboration (CKD-EPI) equation refit??without adjustment for race. BUN/Creatinine Ratio 15.4 LAB CHEMISTRY METHOD 08/01/2024 8:41 AM EST [facility] Calcium 8.6 8.5 - 10.5 mg/dL LAB CHEMISTRY METHOD 08/01/2024 8:41 AM EST [facility] Blood Venous blood specimen / Unknown Existing Catheter / Unknown 08/01/2024 6:59 AM EST 08/01/2024 8:07 AM EST us Jonny Mathur MD LAB BLOOD ORDERABLES Final Re sult Performing Organization Address City/[facility]/ZIP Co de Phone Number [facility] [address] [place] [address], [place] [phone] * (ABNORMAL) POCT Glucose, blood (07/31/2024 8:23 PM EST) Glucose POCT 279(H) 70 - 100 mg/dL 07/31/2024 8:24 PM EST [facility] POCT Comment RN Notified 07/31/2024 8:24 PM EST [facility] Blood Capillary blood specimen / Unknown 07/31/2024 8:23 PM EST 07/31/2024 8:25 PM EST us Jonny Mathur MD LAB POINT OF CARE TE ST DOCKED DEVICE UNSOLICITED RESULTS Final Result Performing Organization Address City/[facility]/ZIP Co de Phone Number [facility] [address] [place] [address], [place] [phone] * (ABNORMAL) POCT Glucose, blood (07/31/2024 4:20 PM EST) Glucose POCT 241(H) 70 - 100 mg/dL 07/31/2024 4:21 PM EST [facility] Blood Capillary blood specimen / Unknown 07/31/2024 4:20 PM EST 07/31/2024 4:22 PM EST Jonny Mathur MD LAB POINT OF CARE TE ST DOCKED DEVICE UNSOLICITED RESULTS Final Result [facility] [address] [place] [address], [place] [phone] * (ABNORMAL) Hemoglobin and hematocrit (07/31/2024 2:30 PM EST) Hemoglobin 7.3(L) 11.5 - 16.0 g/dL LAB HEMETOLOGY METHOD 07/31/2024 3:12 PM EST [facility] Hematocrit 23.7(L) 35.0 - 47.0 % [facility] 07/31/2024 3:12 PM EST [facility] Blood Venous blood specimen / Unknown Venipuncture / Unknown 07/31/2024 2:30 PM EST 07/31/2024 3:05 PM EST Jonny Mathur MD LAB BLOOD ORDERABLES Final Re sult Performing Organization Address City/[facility]/ZIP Co de Phone Number [facility] [address] [place] [address], [place] [phone] * (ABNORMAL) POCT Glucose, blood (07/31/2024 11:22 AM EST) Glucose POCT 132(H) 70 - 100 mg/dL 07/31/2024 11:24 AM EST [facility] Blood Capillary blood specimen / Unknown 07/31/2024 11:22 AM EST 07/31/2024 11:25 AM EST us Jonny Mathur MD LAB POINT OF CARE TE ST DOCKED DEVICE UNSOLICITED RESULTS Final Result Performing Organization Address City/[facility]/ZIP Co de Phone Number [facility] [address] [place] [address], [place] [phone] * (ABNORMAL) POCT Glucose, blood (07/31/2024 8:06 AM EST) Pathologist [facility] Glucose POCT 112(H) 70 - 100 mg/dL 07/31/2024 8:[address] [facility] Blood Capillary blood specimen / Unknown 07/31/2024 8:06 AM EST 07/31/2024 8:08 AM EST us Jonny Mathur MD LAB POINT OF CARE TE ST DOCKED DEVICE UNSOLICITED RESULTS Final Result [facility] [address] [place] [address], [place] [phone] * (ABNORMAL) CBC auto differential (07/31/2024 5:43 AM EST) [facility] WBC 7.4 4.8 - 10.8 K/mcL LAB HEMETOLOGY METHOD 07/31/2024 7:[address] [facility] RBC 2.60(L) 3.80 - 4.80 M/mcL LAB HEMETOLOGY METHOD 07/31/2024 7:[address] [facility] Hemoglobin 6.7(L) 11.5 - 16.0 g/dL LAB HEMETOLOGY METHOD 07/31/2024 7:[address] [facility] Hematocrit 22.0(L) 35.0 - 47.0 % LAB HEMETOLOGY METHOD 07/31/2024 7:[address] [facility] MCV 84.0 79.0 - 98.0 FL LAB HEMETOLOGY METHOD 07/31/2024 7:[address] [facility] MCH 25.6(L) 27.0 - 32.0 pcg LAB HEMETOLOGY METHOD 07/31/2024 7:[address] [facility] MCHC 30.5(L) 32.0 - 37.0 g/dL LAB HEMETOLOGY METHOD 07/31/2024 7:[address] [facility] RDW 23.1(H) 11.0 - 15.0 % LAB HEMETOLOGY METHOD 07/31/2024 7:[address] [facility] Platelets 183 130 - 400 K/mcL LAB HEMETOLOGY METHOD 07/31/2024 7:[address] [facility] MPV 11.1(H) 7.0 - 11.0 FL LAB HEMETOLOGY METHOD 07/31/2024 7:[address] [facility] NRBC 0.0 <1.0 % LAB HEMETOLOGY METHOD 07/31/2024 7:[address] [facility] NRBC Absolute 0.00 <0.10 K/mcL LAB HEMETOLOGY METHOD 07/31/2024 7:[address] [facility] Neutrophils Relative 77.7 % LAB HEMETOLOGY METHOD 07/31/2024 7:[address] [facility] Lymphocytes Relative 11.7 % LAB HEMETOLOGY METHOD 07/31/2024 7:[address] [facility] Monocytes Relative 8.6 % LAB HEMETOLOGY METHOD 07/31/2024 7:[address] [facility] Eosinophils Relative 0.3 % LAB HEMETOLOGY METHOD 07/31/2024 7:[address] [facility] Basophils Relative 0.1 % LAB HEMETOLOGY METHOD 07/31/2024 7:[address] [facility] Immature Granulocytes Relative 1.6 % LAB HEMETOLOGY METHOD 07/31/2024 7:[address] [facility] Neutrophils Absolute 5.77 1.50 - 7.00 K/mcL LAB HEMETOLOGY METHOD 07/31/2024 7:[address] [facility] Lymphocytes Absolute 0.87(L) 1.00 - 5.00 K/mcL LAB HEMETOLOGY METHOD 07/31/2024 7:02 AM EST [facility] Monocytes Absolute 0.64 0.20 - 1.00 K/mcL LAB HEMETOLOGY METHOD 07/31/2024 7:02 AM EST [facility] Eosinophils Absolute 0.02 0.00 - 0.50 K/mcL LAB HEMETOLOGY METHOD 07/31/2024 7:[address] [facility] Basophils Absolute 0.01 0.00 - 0.20 K/mcL LAB HEMETOLOGY METHOD 07/31/2024 7:[address] [facility] Immature Granulocytes Absolute 0.12(H) 0.00 - 0.03 K/mcL LAB HEMETOLOGY METHOD 07/31/2024 7:[address] [facility] Blood Venous blood specimen / Unknown Existing Catheter / Unknown 07/31/2024 5:43 AM EST 07/31/2024 6:34 AM EST Jonny Mathur MD LAB BLOOD ORDERABLES Final Re sult [facility] [address] [place] [address], * (ABNORMAL) Basic metabolic panel (07/31/2024 5:43 AM EST) Sodium 132(L) 133 - 145 mmol/L LAB CHEMISTRY METHOD 07/31/2024 7:[address] [facility] Potassium 4.4 3.5 - 5.5 mmol/L LAB CHEMISTRY METHOD 07/31/2024 7:[address] [facility] Chloride 94(L) 96 - 110 mmol/L LAB CHEMISTRY METHOD 07/31/2024 7:[address] [facility] CO2 31 21 - 32 mmol/L LAB CHEMISTRY METHOD 07/31/2024 7:[address] [facility] Anion Gap 7 3 - 11 LAB CHEMISTRY METHOD 07/31/2024 7:[address] [facility] Glucose 123(H) 70 - 100 mg/dL LAB CHEMISTRY METHOD 07/31/2024 7:[address] [facility] BUN 54(H) 5 - 25 mg/dL LAB CHEMISTRY METHOD 07/31/2024 7:[address] [facility] Creatinine 3.73(H) 0.50 - 1.10 mg/dL LAB CHEMISTRY METHOD 07/31/2024 7:[address] [facility] eGFR 12(L) >=60 mL/min/1. 73m2 LAB CHEMISTRY METHOD 07/31/2024 7:[address] [facility] Comment:Calculation based on the??Chronic Kidney Disease Epidemiology Collaboration (CKD-EPI) equation refit??without adjustment for race. BUN/Creatinine Ratio 14.5 LAB CHEMISTRY METHOD 07/31/2024 7:[address] [facility] Calcium 8.3(L) 8.5 - 10.5 mg/dL LAB CHEMISTRY METHOD 07/31/2024 7:[address] [facility] Blood Venous blood specimen / Unknown Existing Catheter / Unknown 07/31/2024 5:43 AM EST 07/31/2024 6:36 AM EST Jonny Mathur MD LAB BLOOD ORDERABLES Final Re sult [facility] [address] [place] [address], * (ABNORMAL) POCT Glucose, blood (07/30/2024 7:51 PM EST) Glucose POCT 315(H) 70 - 100 mg/dL 07/30/2024 7:[address] [facility] Blood Capillary blood specimen / Unknown 07/30/2024 7:51 PM EST 07/30/2024 7:52 PM EST us Jonny Mathur MD LAB POINT OF CARE TE ST DOCKED DEVICE UNSOLICITED RESULTS Final Result [facility] [address] [place] [address], [place] [phone] * (ABNORMAL) POCT Glucose, blood (07/30/2024 5:02 PM EST) Glucose POCT 299(H) 70 - 100 mg/dL 07/30/2024 5:03 PM EST [facility] Blood Capillary blood specimen / Unknown 07/30/2024 5:02 PM EST 07/30/2024 5:04 PM EST us Jonny Mathur MD LAB POINT OF CARE TE ST DOCKED DEVICE UNSOLICITED RESULTS Final Result Performing Organization Address City/[facility]/ZIP Co de Phone Number [facility] [address] [place] [address], [place] [phone] * (ABNORMAL) Hemoglobin and hematocrit (07/30/2024 3:32 PM EST) Hemoglobin 7.1(L) 11.5 - 16.0 g/dL LAB HEMETOLOGY METHOD 07/30/2024 3:53 PM EST [facility] Hematocrit 23.1(L) 35.0 - 47.0 % LAB HEMETOLOGY METHOD 07/30/2024 3:53 PM EST [facility] Blood Venous blood specimen / Unknown Venipuncture / Unknown 07/30/2024 3:32 PM EST 07/30/2024 3:46 PM EST us Jonny Mathur MD LAB BLOOD ORDERABLES Final Re sult [facility] [address] [place] [address], [place] [phone] * (ABNORMAL) Hepatic Function Panel - STAT (07/30/2024 11:52 AM EST) Total Protein 5.2(L) 6.0 - 8.0 g/dL LAB CHEMISTRY METHOD 07/30/2024 12:[address] [facility] Albumin 2.4(L) 3.2 - 5.0 g/dL LAB CHEMISTRY METHOD 07/30/2024 12:[address] [facility] Total Bilirubin 0.4 0.0 - 1.4 mg/dL LAB CHEMISTRY METHOD 07/30/2024 12:[address] [facility] Bilirubin, Direct 0.2 0.0 - 0.3 mg/dL LAB CHEMISTRY METHOD 07/30/2024 12:[address] [facility] Bilirubin, Indirect 0.2 0.0 - 1.1 mg/dL LAB CHEMISTRY METHOD 07/30/2024 12:[address] [facility] ALT (SGPT) 17 10 - 60 unit/L LAB CHEMISTRY METHOD 07/30/2024 12:[address] [facility] AST (SGOT) 12 10 - 42 unit/L LAB CHEMISTRY METHOD 07/30/2024 12:[address] [facility] Alkaline Phosphatase 80 42 - 121 unit/L LAB CHEMISTRY METHOD 07/30/2024 12:[address] [facility] Blood Venous blood specimen / Unknown Venipuncture / Unknown 07/30/2024 11:52 AM EST 07/30/2024 12:28 PM EST us Jonny Mathur MD LAB BLOOD ORDERABLES Final Re sult [facility] [address] [place] [address], * (ABNORMAL) POCT Glucose, blood (07/30/2024 11:22 AM EST) Glucose POCT 182(H) 70 - 100 mg/dL 07/30/2024 11:25 AM EST [facility] Blood Capillary blood specimen / Unknown 07/30/2024 11:22 AM EST 07/30/2024 11:25 AM EST Jonny Mathur MD LAB POINT OF CARE TE ST DOCKED DEVICE UNSOLICITED RESULTS Final Result Performing Organization Address [facility]/ZIP Co de Phone Number [facility] [address] [place] [address], [place] [phone] * (ABNORMAL) POCT Glucose, blood (07/30/2024 7:47 AM EST) [facility] Glucose POCT 173(H) 70 - 100 mg/dL 07/30/2024 7:[address] [facility] Blood Capillary blood specimen / Unknown 07/30/2024 7:47 AM EST 07/30/2024 7:49 AM EST Jonny Mathur MD LAB POINT OF CARE TE ST DOCKED DEVICE UNSOLICITED RESULTS Final Result Performing Organization Address [facility]/ZIP Co de Phone Number [facility] [address] [place] [address], [place] [phone] * (ABNORMAL) CBC - Every 3 Days (07/30/2024 6:10 AM EST) [facility] WBC 8.0 4.8 - 10.8 K/mcL LAB HEMETOLOGY METHOD 07/30/2024 6:55 AM EST [facility] RBC 2.90(L) 3.80 - 4.80 M/mcL LAB HEMETOLOGY METHOD 07/30/2024 6:55 AM EST [facility] Hemoglobin 7.2(L) 11.5 - 16.0 g/dL LAB HEMETOLOGY METHOD 07/30/2024 6:55 AM EST [facility] Hematocrit 23.9(L) 35.0 - 47.0 % LAB HEMETOLOGY METHOD 07/30/2024 6:55 AM EST [facility] MCV 83.6 79.0 - 98.0 FL LAB HEMETOLOGY METHOD 07/30/2024 6:[address] [facility] MCH 25.2(L) 27.0 - 32.0 pcg LAB HEMETOLOGY METHOD 07/30/2024 6:[address] [facility] MCHC 30.1(L) 32.0 - 37.0 g/dL LAB HEMETOLOGY METHOD 07/30/2024 6:[address] [facility] RDW 22.9(H) 11.0 - 15.0 % LAB HEMETOLOGY METHOD 07/30/2024 6:[address] [facility] Platelets 176 130 - 400 K/mcL LAB HEMETOLOGY METHOD 07/30/2024 6:[address] [facility] MPV 10.7 7.0 - 11.0 FL LAB HEMETOLOGY METHOD 07/30/2024 6:[address] [facility] NRBC 0.0 <1.0 % LAB HEMETOLOGY METHOD 07/30/2024 6:[address] [facility] NRBC Absolute 0.00 <0.10 K/mcL LAB HEMETOLOGY METHOD 07/30/2024 6:[address] [facility] Blood Venous blood specimen / Unknown Venipuncture / Unknown 07/30/2024 6:10 AM EST 07/30/2024 6:25 AM EST [facility] [employer] [facility] [facility] LAB BLOOD ORDERABLES Final R esult [facility] [address] [place] [address], * (ABNORMAL) Heparin and low molecular weight anti Xa level (07/30/2024 6:10 AM EST) Heparin Anti-Xa 1.16(H) 0.30 - 0.70 I Unit/mL LAB COAGULATION METHOD 07/30/2024 6:53 AM EST [facility] Blood Venous blood specimen / Unknown Venipuncture / Unknown 07/30/2024 6:10 AM EST 07/30/2024 6:26 AM EST Narrative [facility] - 07/30/2024 6:53 AM EST Therapeutic range listed is for Unfractionated Heparin. LMW Heparin therapeutic range: 0.50-1.20 IU/mL us Jonny Mathur MD LAB BLOOD ORDERABLES Final Re sult Performing Organization Address City/[facility]/ZIP Co de Phone Number [facility] [address] [place] [address], [place] [phone] * (ABNORMAL) POCT Glucose, blood (07/29/2024 8:11 PM EST) Glucose POCT 321(H) 70 - 100 mg/dL 07/29/2024 8:19 PM EST [facility] Blood Capillary blood specimen / Unknown 07/29/2024 8:11 PM EST 07/29/2024 8:20 PM EST us Jonny Mathur MD LAB POINT OF CARE TE ST DOCKED DEVICE UNSOLICITED RESULTS Final Result [facility] [address] [place] [address], [place] [phone] * (ABNORMAL) POCT Glucose, blood (07/29/2024 4:19 PM EST) Glucose POCT 267(H) 70 - 100 mg/dL 07/29/2024 4:21 PM EST [facility] Blood Capillary blood specimen / Unknown 07/29/2024 4:19 PM EST 07/29/2024 4:22 PM EST Jonny Mathur MD LAB POINT OF CARE TE ST DOCKED DEVICE UNSOLICITED RESULTS Final Result Performing Organization Address [facility]/ZIP Co de Phone Number [facility] [address] [place] [address], [place] [phone] * Hepatitis B surface antigen with reflex to confirmation (07/29/2024 11:51 AM EST) [facility] Hepatitis B Surface Ag Negative Negative LAB CHEMISTRY METHOD 07/29/2024 3:12 PM EST [facility] Blood Venous blood specimen / Unknown Venipuncture / Unknown 07/29/2024 11:51 AM EST 07/29/2024 1:08 PM EST Narrative [facility] - 07/29/2024 3:12 PM EST Over the counter supplements containing high doses of biotin may interfere with this assay. ??If interference is suspected, patients shoud be retested after refraining from biotin supplements for 72 hours. us Jonny Mathur MD LAB BLOOD ORDERABLES Final Re sult Performing Organization Address [facility]/ZIP Co de Phone Number [facility] [address] [place] [address], [place] [phone] * (ABNORMAL) POCT Glucose, blood (07/29/2024 11:23 AM EST) [facility] Glucose POCT 108(H) 70 - 100 mg/dL 07/29/2024 11:30 AM EST [facility] Blood Capillary blood specimen / Unknown 07/29/2024 11:23 AM EST 07/29/2024 11:31 AM EST us Jonny Mathur MD LAB POINT OF CARE TE ST DOCKED DEVICE UNSOLICITED RESULTS Final Result Performing Organization Address City/[facility]/ZIP Co de Phone Number [facility] [address] [place] [address], [place] [phone] * Heparin and low molecular weight anti Xa level (07/29/2024 5:54 AM EST) [facility] Heparin Anti-Xa 0.61 0.30 - 0.70 I Unit/mL LAB COAGULATION METHOD 07/29/2024 6:54 AM EST [facility] Blood Venous blood specimen / Unknown Venipuncture / Unknown 07/29/2024 5:54 AM EST 07/29/2024 6:34 AM EST [facility] - 07/29/2024 6:54 AM EST Therapeutic range listed is for Unfractionated Heparin. LMW Heparin therapeutic range: 0.50-1.20 IU/mL Jonny Mathur MD LAB BLOOD ORDERABLES Final Re sult [facility] [address] [place] [address], [place] [phone] * (ABNORMAL) CBC auto differential (07/29/2024 5:54 AM EST) [facility] WBC 7.3 4.8 - 10.8 K/mcL LAB HEMETOLOGY METHOD 07/29/2024 6:[address] [facility] RBC 2.60(L) 3.80 - 4.80 M/mcL LAB HEMETOLOGY METHOD 07/29/2024 6:[address] [facility] Hemoglobin 6.7(L) 11.5 - 16.0 g/dL LAB HEMETOLOGY METHOD 07/29/2024 6:[address] [facility] Hematocrit 21.7(L) 35.0 - 47.0 % LAB HEMETOLOGY METHOD 07/29/2024 6:[address] [facility] MCV 82.8 79.0 - 98.0 FL LAB HEMETOLOGY METHOD 07/29/2024 6:[address] [facility] MCH 25.6(L) 27.0 - 32.0 pcg LAB HEMETOLOGY METHOD 07/29/2024 6:[address] [facility] MCHC 30.9(L) 32.0 - 37.0 g/dL LAB HEMETOLOGY METHOD 07/29/2024 6:[address] [facility] RDW 23.1(H) 11.0 - 15.0 % LAB HEMETOLOGY METHOD 07/29/2024 6:[address] [facility] Platelets 146 130 - 400 K/mcL LAB HEMETOLOGY METHOD 07/29/2024 6:[address] [facility] MPV 10.7 7.0 - 11.0 FL LAB HEMETOLOGY METHOD 07/29/2024 6:[address] [facility] NRBC 0.0 <1.0 % LAB HEMETOLOGY METHOD 07/29/2024 6:[address] [facility] NRBC Absolute 0.00 <0.10 K/mcL LAB HEMETOLOGY METHOD 07/29/2024 6:[address] [facility] Neutrophils Relative 83.4 % LAB HEMETOLOGY METHOD 07/29/2024 6:[address] [facility] Lymphocytes Relative 8.2 % LAB HEMETOLOGY METHOD 07/29/2024 6:[address] [facility] Monocytes Relative 6.1 % LAB HEMETOLOGY METHOD 07/29/2024 6:[address] [facility] Eosinophils Relative 0.3 % LAB HEMETOLOGY METHOD 07/29/2024 6:[address] [facility] Basophils Relative 0.1 % LAB HEMETOLOGY METHOD 07/29/2024 6:[address] [facility] Immature Granulocytes Relative 1.9 % LAB HEMETOLOGY METHOD 07/29/2024 6:[address] [facility] Neutrophils Absolute 6.11 1.50 - 7.00 K/mcL LAB HEMETOLOGY METHOD 07/29/2024 6:55 AM EST [facility] Lymphocytes Absolute 0.60(L) 1.00 - 5.00 K/mcL LAB HEMETOLOGY METHOD 07/29/2024 6:55 AM EST [facility] Monocytes Absolute 0.45 0.20 - 1.00 K/[facility] LAB HEMETOLOGY METHOD 07/29/2024 6:55 AM EST [facility] Eosinophils Absolute 0.02 0.00 - 0.50 K/[facility] LAB HEMETOLOGY METHOD 07/29/2024 6:55 AM EST [facility] Basophils Absolute 0.01 0.00 - 0.20 K/[facility] LAB HEMETOLOGY METHOD 07/29/2024 6:[address] [facility] Immature Granulocytes Absolute 0.14(H) 0.00 - 0.03 K/[facility] LAB HEMETOLOGY METHOD 07/29/2024 6:55 AM EST [facility] Blood Venous blood specimen / Unknown Venipuncture / Unknown 07/29/2024 5:54 AM EST 07/29/2024 6:34 AM EST us Jonny Mathur MD LAB BLOOD ORDERABLES Final Re sult [facility] [address] [place] [address], * (ABNORMAL) Basic metabolic panel (07/29/2024 5:54 AM EST) Sodium 131(L) 133 - 145 mmol/L LAB CHEMISTRY METHOD 07/29/2024 7:22 AM EST [facility] Potassium 4.2 3.5 - 5.5 mmol/L LAB CHEMISTRY METHOD 07/29/2024 7:[address] [facility] Chloride 95(L) 96 - 110 mmol/L LAB CHEMISTRY METHOD 07/29/2024 7:[address] [facility] CO2 31 21 - 32 mmol/L LAB CHEMISTRY METHOD 07/29/2024 7:[address] [facility] Anion Gap 5 3 - 11 LAB CHEMISTRY METHOD 07/29/2024 7:[address] [facility] Glucose 180(H) 70 - 100 mg/dL LAB CHEMISTRY METHOD 07/29/2024 7:[address] [facility] BUN 49(H) 5 - 25 mg/dL LAB CHEMISTRY METHOD 07/29/2024 7:[address] [facility] Creatinine 3.73(H) 0.50 - 1.10 mg/dL LAB CHEMISTRY METHOD 07/29/2024 7:[address] [facility] eGFR 12(L) >=60 mL/min/1. 73m2 LAB CHEMISTRY METHOD 07/29/2024 7:[address] [facility] Comment:Calculation based on the??Chronic Kidney Disease Epidemiology Collaboration (CKD-EPI) equation refit??without adjustment for race. BUN/Creatinine Ratio 13.1 LAB CHEMISTRY METHOD 07/29/2024 7:[address] [facility] Calcium 7.8(L) 8.5 - 10.5 mg/dL LAB CHEMISTRY METHOD 07/29/2024 7:[address] [facility] Blood Venous blood specimen / Unknown Venipuncture / Unknown 07/29/2024 5:54 AM EST 07/29/2024 6:34 AM EST us Jonny Mathur MD LAB BLOOD ORDERABLES Final Re sult [facility] [address] [place] [address], * Heparin and low molecular weight anti Xa level (07/28/2024 11:42 PM EST) Heparin Anti-Xa 0.65 0.30 - 0.70 I Unit/mL LAB COAGULATION METHOD 07/29/2024 12:10 AM EST [facility] Blood Venous blood specimen / Unknown Venipuncture / Unknown 07/28/2024 11:42 PM EST 07/28/2024 11:52 PM EST Narrative [facility] - 07/29/2024 12:10 AM EST Therapeutic range listed is for Unfractionated Heparin. LMW Heparin therapeutic range: 0.50-1.20 IU/mL Jonny Mathur MD LAB BLOOD ORDERABLES Final Re sult [facility] [address] [place] [address], [place] [phone] * (ABNORMAL) Heparin and low molecular weight anti Xa level (07/28/2024 7:46 PM EST) Heparin Anti-Xa 1.05(H) 0.30 - 0.70 I Unit/mL LAB COAGULATION METHOD 07/28/2024 9:19 PM EST [facility] Blood Venous blood specimen / Unknown Venipuncture / Unknown 07/28/2024 7:46 PM EST 07/28/2024 9:09 PM EST Narrative [facility] - 07/28/2024 9:19 PM EST Therapeutic range listed is for Unfractionated Heparin. LMW Heparin therapeutic range: 0.50-1.20 IU/mL Jonny Mathur MD LAB BLOOD ORDERABLES Final Re sult [facility] [address] [place] [address], [place] [phone] * (ABNORMAL) POCT Glucose, blood (07/28/2024 7:41 PM EST) Glucose POCT 269(H) 70 - 100 mg/dL 07/28/2024 7:41 PM EST [facility] Blood Capillary blood specimen / Unknown 07/28/2024 7:41 PM EST 07/28/2024 7:43 PM EST Jonny Mathur MD LAB POINT OF CARE TE ST DOCKED DEVICE UNSOLICITED RESULTS Final Result Performing Organization Address City/[facility]/ZIP Co de Phone Number [facility] [address] [place] [address], [place] [phone] * (ABNORMAL) POCT Glucose, blood (07/28/2024 4:54 PM EST) Glucose POCT 258(H) 70 - 100 mg/dL 07/28/2024 4:56 PM EST [facility] Blood Capillary blood specimen / Unknown 07/28/2024 4:54 PM EST 07/28/2024 4:57 PM EST Jonny Mathur MD LAB POINT OF CARE TE ST DOCKED DEVICE UNSOLICITED RESULTS Final Result Performing Organization Address [facility]/ZIP Co de Phone Number [facility] [address] [place] [address], [place] [phone] * Hepatitis B core antibody IgM (07/28/2024 12:19 PM EST) Pathologist [facility] Hep B Core IgM Negative Negative LAB [...] ORDERABLES Final Res ult Performing Organization Address [facility]/ZIP Co de Phone Number [facility] [address] [place] [address], [place] [phone] * Hepatitis B surface antibody (07/28/2024 12:19 PM EST) Pathologist [facility] Hepatitis B Surface Ab Negative Negative LAB [...] ORDERABLES Final Res ult Performing Organization Address [facility]/ZIP Co de Phone Number [facility] [address] [place] [address], [place] [phone] * (ABNORMAL) POCT Glucose, blood (07/28/2024 11:02 AM EST) [facility] Glucose POCT 220(H) 70 - 100 mg/dL 07/28/2024 11:04 AM EST [facility] Blood Capillary blood specimen / Unknown 07/28/2024 11:02 AM EST 07/28/2024 11:05 AM EST Jonny Mathur MD LAB POINT OF CARE TE ST DOCKED DEVICE UNSOLICITED RESULTS Final Result Performing Organization Address [facility]/ZIP Co de Phone Number [facility] [address] [place] [address], [place] [phone] * (ABNORMAL) CBC auto differential (07/28/2024 9:51 AM EST) [facility] WBC 13.0(H) 4.8 - 10.8 K/mcL LAB HEMETOLOGY METHOD 07/28/2024 12:[address] [facility] RBC 3.10(L) 3.80 - 4.80 M/mcL LAB HEMETOLOGY METHOD 07/28/2024 12:[address] [facility] Hemoglobin 8.0(L) 11.5 - 16.0 g/dL LAB HEMETOLOGY METHOD 07/28/2024 12:[address] [facility] Hematocrit 26.5(L) 35.0 - 47.0 % LAB HEMETOLOGY METHOD 07/28/2024 12:[address] [facility] MCV 84.9 79.0 - 98.0 FL LAB HEMETOLOGY METHOD 07/28/2024 12:[address] [facility] MCH 25.6(L) 27.0 - 32.0 pcg LAB HEMETOLOGY METHOD 07/28/2024 12:[address] [facility] MCHC 30.2(L) 32.0 - 37.0 g/dL LAB HEMETOLOGY METHOD 07/28/2024 12:[address] [facility] RDW 22.8(H) 11.0 - 15.0 % LAB HEMETOLOGY METHOD 07/28/2024 12:[address] [facility] Platelets 158 130 - 400 K/mcL LAB HEMETOLOGY METHOD 07/28/2024 12:[address] [facility] MPV 11.5(H) 7.0 - 11.0 FL LAB HEMETOLOGY METHOD 07/28/2024 12:[address] [facility] NRBC 0.0 <1.0 % LAB HEMETOLOGY METHOD 07/28/2024 12:[address] [facility] NRBC Absolute 0.00 <0.10 K/[facility] LAB HEMETOLOGY METHOD 07/28/2024 12:[address] [facility] Neutrophils Relative 86.3 % LAB HEMETOLOGY METHOD 07/28/2024 12:[address] [facility] Lymphocytes Relative 5.8 % LAB HEMETOLOGY METHOD 07/28/2024 12:[address] [facility] Monocytes Relative 4.8 % LAB HEMETOLOGY METHOD 07/28/2024 12:[address] [facility] Eosinophils Relative 1.7 % LAB HEMETOLOGY METHOD 07/28/2024 12:[address] [facility] Basophils Relative 0.1 % LAB HEMETOLOGY METHOD 07/28/2024 12:[address] [facility] Immature Granulocytes Relative 1.3 % LAB HEMETOLOGY METHOD 07/28/2024 12:[address] [facility] Neutrophils Absolute 11.22(H) 1.50 - 7.00 K/mcL LAB HEMETOLOGY METHOD 07/28/2024 12:[address] [facility] Lymphocytes Absolute 0.76(L) 1.00 - 5.00 K/mcL LAB HEMETOLOGY METHOD 07/28/2024 12:[address] [facility] Monocytes Absolute 0.63 0.20 - 1.00 K/mcL LAB HEMETOLOGY METHOD 07/28/2024 12:[address] [facility] Eosinophils Absolute 0.22 0.00 - 0.50 K/mcL LAB HEMETOLOGY METHOD 07/28/2024 12:[address] [facility] Basophils Absolute 0.01 0.00 - 0.20 K/mcL LAB HEMETOLOGY METHOD 07/28/2024 12:[address] [facility] Immature Granulocytes Absolute 0.17(H) 0.00 - 0.03 K/mcL LAB HEMETOLOGY METHOD 07/28/2024 12:[address] [facility] Blood Venous blood specimen / Unknown Venipuncture / Unknown 07/28/2024 9:51 AM EST 07/28/2024 12:19 PM EST us Jonny Mathur MD LAB BLOOD ORDERABLES Final Re sult [facility] [address] [place] [address], * (ABNORMAL) Basic metabolic panel (07/28/2024 9:51 AM EST) Sodium 134 133 - 145 mmol/L LAB CHEMISTRY METHOD 07/28/2024 1:[address] [facility] Potassium 4.0 3.5 - 5.5 mmol/L LAB CHEMISTRY METHOD 07/28/2024 1:[address] [facility] Chloride 95(L) 96 - 110 mmol/L LAB CHEMISTRY METHOD 07/28/2024 1:[address] [facility] CO2 29 21 - 32 mmol/L LAB CHEMISTRY METHOD 07/28/2024 1:[address] [facility] Anion Gap 10 3 - 11 LAB CHEMISTRY METHOD 07/28/2024 1:[address] [facility] Glucose 230(H) 70 - 100 mg/dL LAB CHEMISTRY METHOD 07/28/2024 1:[address] [facility] BUN 32(H) 5 - 25 mg/dL LAB CHEMISTRY METHOD 07/28/2024 1:[address] [facility] Creatinine 2.82(H) 0.50 - 1.10 mg/dL LAB CHEMISTRY METHOD 07/28/2024 1:[address] [facility] eGFR 16(L) >=60 mL/min/1. 73m2 LAB CHEMISTRY METHOD 07/28/2024 1:[address] [facility] Comment:Calculation based on the??Chronic Kidney Disease Epidemiology Collaboration (CKD-EPI) equation refit??without adjustment for race. BUN/Creatinine Ratio 11.3 LAB CHEMISTRY METHOD 07/28/2024 1:16 PM EST [facility] Calcium 7.9(L) 8.5 - 10.5 mg/dL LAB CHEMISTRY METHOD 07/28/2024 1:16 PM EST [facility] Blood Venous blood specimen / Unknown Venipuncture / Unknown 07/28/2024 9:51 AM EST 07/28/2024 12:18 PM EST Jonny Mathur MD LAB BLOOD ORDERABLES Final Re sult [facility] [address] [place] [address], [place] [phone] * (ABNORMAL) Heparin and low molecular weight anti Xa level (07/28/2024 9:51 AM EST) Heparin Anti-Xa 0.16(L) 0.30 - 0.70 I Unit/mL LAB COAGULATION METHOD 07/28/2024 12:37 PM EST [facility] Blood Venous blood specimen / Unknown Venipuncture / Unknown 07/28/2024 9:51 AM EST 07/28/2024 12:19 PM EST Narrative [facility] - 07/28/2024 12:37 PM EST Therapeutic range listed is for Unfractionated Heparin. LMW Heparin therapeutic range: 0.50-1.20 IU/mL Jonny Mathur MD LAB BLOOD ORDERABLES Final Re sult [facility] [address] [place] [address], [place] [phone] * (ABNORMAL) POCT Glucose, blood (07/28/2024 9:29 AM EST) Glucose POCT 214(H) 70 - 100 mg/dL 07/28/2024 10:23 AM EST [facility] Blood Capillary blood specimen / Unknown 07/28/2024 9:29 AM EST 07/28/2024 10:24 AM EST us Jonny Mathur MD LAB POINT OF CARE TE ST DOCKED DEVICE UNSOLICITED RESULTS Final Result Performing Organization Address [facility]/ZIP Co de Phone Number [facility] [address] [place] [address], [place] [phone] * Heparin and low molecular weight anti Xa level (07/28/2024 2:09 AM EST) Heparin Anti-Xa 0.39 0.30 - 0.70 I Unit/mL LAB COAGULATION METHOD 07/28/2024 2:28 AM EST [facility] Blood Venous blood specimen / Unknown Venipuncture / Unknown 07/28/2024 2:09 AM EST 07/28/2024 2:16 AM EST Narrative [facility] - 07/28/2024 2:28 AM EST Therapeutic range listed is for Unfractionated Heparin. LMW Heparin therapeutic range: 0.50-1.20 IU/mL us Jonny Mathur MD LAB BLOOD ORDERABLES Final Re sult Performing Organization Address City/[facility]/ZIP Co de Phone Number [facility] [address] [place] [address], * (ABNORMAL) Heparin and low molecular weight anti Xa level (07/27/2024 11:55 PM EST) Heparin Anti-Xa 0.22(L) 0.30 - 0.70 I Unit/mL LAB COAGULATION METHOD 07/28/2024 12:28 AM EST [facility] Blood Venous blood specimen / Unknown Venipuncture / Unknown 07/27/2024 11:55 PM EST 07/28/2024 12:20 AM EST Narrative [facility] - 07/28/2024 12:28 AM EST Therapeutic range listed is for Unfractionated Heparin. LMW Heparin therapeutic range: 0.50-1.20 IU/mL us Jonny Mathur MD LAB BLOOD ORDERABLES Final Re sult Performing Organization Address [facility]/ZIP Co de Phone Number [facility] [address] [place] [address], [place] [phone] * (ABNORMAL) Heparin and low molecular weight anti Xa level (07/27/2024 9:31 PM EST) Heparin Anti-Xa 1.11(H) 0.30 - 0.70 I Unit/mL LAB COAGULATION METHOD 07/27/2024 9:51 PM EST [facility] Blood Venous blood specimen / Unknown Venipuncture / Unknown 07/27/2024 9:31 PM EST 07/27/2024 9:37 PM EST Narrative [facility] - 07/27/2024 9:51 PM EST Therapeutic range listed is for Unfractionated Heparin. LMW Heparin therapeutic range: 0.50-1.20 IU/mL us Jonny Mathur MD LAB BLOOD ORDERABLES Final Re sult Performing Organization Address [facility]/ZIP Co de Phone Number [facility] [address] [place] [address], [place] [phone] * (ABNORMAL) POCT Glucose, blood (07/27/2024 8:12 PM EST) Glucose POCT 249(H) 70 - 100 mg/dL 07/27/2024 8:13 PM EST [facility] Blood Capillary blood specimen / Unknown 07/27/2024 8:12 PM EST 07/27/2024 8:14 PM EST us Jonny Mathur MD LAB POINT OF CARE TE ST DOCKED DEVICE UNSOLICITED RESULTS Final Result [facility] [address] [place] [address], [place] [phone] * (ABNORMAL) POCT Glucose, blood (07/27/2024 4:34 PM EST) [facility] Glucose POCT 213(H) 70 - 100 mg/dL 07/27/2024 4:40 PM EST [facility] Blood Capillary blood specimen / Unknown 07/27/2024 4:34 PM EST 07/27/2024 4:41 PM EST Jonny Mathur MD LAB POINT OF CARE TE ST DOCKED DEVICE UNSOLICITED RESULTS Final Result Performing Organization Address [facility]/ZIP Co de Phone Number [facility] [address] [place] [address], [place] [phone] * (ABNORMAL) Complete blood count (07/27/2024 3:25 PM EST) [facility] WBC 17.5(H) 4.8 - 10.8 K/mcL LAB HEMETOLOGY METHOD 07/27/2024 3:[address] [facility] RBC 3.30(L) 3.80 - 4.80 M/mcL LAB HEMETOLOGY METHOD 07/27/2024 3:[address] [facility] Hemoglobin 8.3(L) 11.5 - 16.0 g/dL LAB HEMETOLOGY METHOD 07/27/2024 3:[address] [facility] Hematocrit 27.7(L) 35.0 - 47.0 % LAB HEMETOLOGY METHOD 07/27/2024 3:[address] [facility] MCV 83.7 79.0 - 98.0 FL LAB HEMETOLOGY METHOD 07/27/2024 3:[address] [facility] MCH 25.1(L) 27.0 - 32.0 pcg LAB HEMETOLOGY METHOD 07/27/2024 3:46 PM EST [facility] MCHC 30.0(L) 32.0 - 37.0 g/dL LAB HEMETOLOGY METHOD 07/27/2024 3:46 PM EST [facility] RDW 22.5(H) 11.0 - 15.0 % LAB HEMETOLOGY METHOD 07/27/2024 3:46 PM EST [facility] Platelets 147 130 - 400 K/mcL LAB HEMETOLOGY METHOD 07/27/2024 3:46 PM EST [facility] MPV 10.8 7.0 - 11.0 FL LAB HEMETOLOGY METHOD 07/27/2024 3:46 PM EST [facility] NRBC 0.0 <1.0 % LAB HEMETOLOGY METHOD 07/27/2024 3:46 PM EST [facility] NRBC Absolute 0.00 <0.10 K/mcL LAB HEMETOLOGY METHOD 07/27/2024 3:46 PM EST [facility] Blood Venous blood specimen / Unknown Venipuncture / Unknown 07/27/2024 3:25 PM EST 07/27/2024 3:29 PM EST us Jonny Mathur MD LAB BLOOD ORDERABLES Final Re sult [facility] [address] [place] [address], * (ABNORMAL) Heparin and low molecular weight anti Xa level (07/27/2024 1:42 PM EST) Heparin Anti-Xa <0.04(L) 0.30 - 0.70 I Unit/mL LAB COAGULATION METHOD 07/27/2024 2:08 PM EST [facility] Blood Venous blood specimen / Unknown Venipuncture / Unknown 07/27/2024 1:42 PM EST 07/27/2024 1:52 PM EST Narrative [facility] - 07/27/2024 2:08 PM EST Therapeutic range listed is for Unfractionated Heparin. LMW Heparin therapeutic range: 0.50-1.20 IU/mL us Jonny Mathur MD LAB BLOOD ORDERABLES Final Re sult [facility] [address] [place] [address], [place] [phone] * (ABNORMAL) Basic metabolic panel (07/27/2024 1:42 PM EST) Sodium 131(L) 133 - 145 mmol/L LAB CHEMISTRY METHOD 07/27/2024 2:[address] [facility] Potassium 3.8 3.5 - 5.5 mmol/L LAB CHEMISTRY METHOD 07/27/2024 2:[address] [facility] Chloride 97 96 - 110 mmol/L LAB CHEMISTRY METHOD 07/27/2024 2:[address] [facility] CO2 28 21 - 32 mmol/L LAB CHEMISTRY METHOD 07/27/2024 2:[address] [facility] Anion Gap 6 3 - 11 LAB CHEMISTRY METHOD 07/27/2024 2:[address] [facility] Glucose 150(H) 70 - 100 mg/dL LAB CHEMISTRY METHOD 07/27/2024 2:[address] [facility] BUN 17 5 - 25 mg/dL LAB CHEMISTRY METHOD 07/27/2024 2:[address] [facility] Creatinine 1.53(H) 0.50 - 1.10 mg/dL LAB CHEMISTRY METHOD 07/27/2024 2:[address] [facility] eGFR 34(L) >=60 mL/min/1. 73m2 LAB CHEMISTRY METHOD 07/27/2024 2:[address] [facility] Comment:Calculation based on the??Chronic Kidney Disease Epidemiology Collaboration (CKD-EPI) equation refit??without adjustment for race. BUN/Creatinine Ratio 11.1 LAB CHEMISTRY METHOD 07/27/2024 2:30 PM EST [facility] Calcium 7.9(L) 8.5 - 10.5 mg/dL LAB CHEMISTRY METHOD 07/27/2024 2:30 PM EST [facility] Blood Venous blood specimen / Unknown Venipuncture / Unknown 07/27/2024 1:42 PM EST 07/27/2024 1:52 PM EST us Jonny Mathur MD LAB BLOOD ORDERABLES Final Re sult [facility] [address] [place] [address], [place] [phone] * (ABNORMAL) POCT Glucose, blood (07/27/2024 11:54 AM EST) Glucose POCT 126(H) 70 - 100 mg/dL 07/27/2024 11:57 AM EST [facility] Blood Capillary blood specimen / Unknown 07/27/2024 11:54 AM EST 07/27/2024 11:58 AM EST us Jonny Mathur MD LAB POINT OF CARE TE ST DOCKED DEVICE UNSOLICITED RESULTS Final Result [facility] [address] [place] [address], [place] [phone] * (ABNORMAL) CBC auto differential (07/27/2024 6:27 AM EST) WBC 12.4(H) 4.8 - 10.8 K/[facility] LAB HEMETOLOGY METHOD 07/27/2024 7:55 AM EST [facility] RBC 3.10(L) 3.80 - 4.80 M/[facility] LAB HEMETOLOGY METHOD 07/27/2024 7:55 AM EST [facility] Hemoglobin 7.7(L) 11.5 - 16.0 g/dL LAB HEMETOLOGY METHOD 07/27/2024 7:[address] [facility] Hematocrit 25.5(L) 35.0 - 47.0 % LAB HEMETOLOGY METHOD 07/27/2024 7:[address] [facility] MCV 83.3 79.0 - 98.0 FL LAB HEMETOLOGY METHOD 07/27/2024 7:[address] [facility] MCH 25.2(L) 27.0 - 32.0 pcg LAB HEMETOLOGY METHOD 07/27/2024 7:[address] [facility] MCHC 30.2(L) 32.0 - 37.0 g/dL LAB HEMETOLOGY METHOD 07/27/2024 7:[address] [facility] RDW 22.4(H) 11.0 - 15.0 % LAB HEMETOLOGY METHOD 07/27/2024 7:[address] [facility] Platelets 143 130 - 400 K/mcL LAB HEMETOLOGY METHOD 07/27/2024 7:[address] [facility] MPV 11.2(H) 7.0 - 11.0 FL LAB HEMETOLOGY METHOD 07/27/2024 7:[address] [facility] NRBC 0.0 <1.0 % LAB HEMETOLOGY METHOD 07/27/2024 7:[address] [facility] NRBC Absolute 0.00 <0.10 K/mcL LAB HEMETOLOGY METHOD 07/27/2024 7:[address] [facility] Neutrophils Relative 82.8 % LAB HEMETOLOGY METHOD 07/27/2024 7:[address] [facility] Lymphocytes Relative 10.0 % LAB HEMETOLOGY METHOD 07/27/2024 7:[address] [facility] Monocytes Relative 4.8 % LAB HEMETOLOGY METHOD 07/27/2024 7:[address] [facility] Eosinophils Relative 0.8 % LAB HEMETOLOGY METHOD 07/27/2024 7:[address] [facility] Basophils Relative 0.1 % LAB HEMETOLOGY METHOD 07/27/2024 7:[address] [facility] Immature Granulocytes Relative 1.5 % LAB HEMETOLOGY METHOD 07/27/2024 7:[address] [facility] Neutrophils Absolute 10.27(H) 1.50 - 7.00 K/mcL LAB HEMETOLOGY METHOD 07/27/2024 7:[address] [facility] Lymphocytes Absolute 1.24 1.00 - 5.00 K/mcL LAB HEMETOLOGY METHOD 07/27/2024 7:[address] [facility] Monocytes Absolute 0.59 0.20 - 1.00 K/mcL LAB HEMETOLOGY METHOD 07/27/2024 7:55 AM EST [facility] Eosinophils Absolute 0.10 0.00 - 0.50 K/mcL LAB HEMETOLOGY METHOD 07/27/2024 7:[address] [facility] Basophils Absolute 0.01 0.00 - 0.20 K/mcL LAB HEMETOLOGY METHOD 07/27/2024 7:[address] [facility] Immature Granulocytes Absolute 0.19(H) 0.00 - 0.03 K/mcL LAB HEMETOLOGY METHOD 07/27/2024 7:[address] [facility] Blood Venous blood specimen / Unknown Venipuncture / Unknown 07/27/2024 6:27 AM EST 07/27/2024 7:41 AM EST us Jonny Mathur MD LAB BLOOD ORDERABLES Final Re sult [facility] [address] [place] [address], [place] [phone] * (ABNORMAL) Heparin and low molecular weight anti Xa level (07/27/2024 6:27 AM EST) Pathologist [facility] Heparin Anti-Xa 0.74(H) 0.30 - 0.70 I Unit/mL LAB COAGULATION METHOD 07/27/2024 8:11 AM EST [facility] Blood Venous blood specimen / Unknown Venipuncture / Unknown 07/27/2024 6:27 AM EST 07/27/2024 7:41 AM EST [facility] - 07/27/2024 8:11 AM EST Therapeutic range listed is for Unfractionated Heparin. LMW Heparin therapeutic range: 0.50-1.20 IU/mL us Jonny Mathur MD LAB BLOOD ORDERABLES Final Re sult [facility] [address] [place] [address], [place] [phone] * (ABNORMAL) CBC - Every 3 Days (07/27/2024 6:27 AM EST) [facility] WBC 12.4(H) 4.8 - 10.8 K/mcL LAB HEMETOLOGY METHOD 07/27/2024 7:[address] [facility] RBC 3.10(L) 3.80 - 4.80 M/[facility] LAB HEMETOLOGY METHOD 07/27/2024 7:[address] [facility] Hemoglobin 7.7(L) 11.5 - 16.0 g/dL LAB HEMETOLOGY METHOD 07/27/2024 7:[address] [facility] Hematocrit 25.5(L) 35.0 - 47.0 % LAB HEMETOLOGY METHOD 07/27/2024 7:[address] [facility] MCV 83.3 79.0 - 98.0 FL LAB HEMETOLOGY METHOD 07/27/2024 7:55 AM EST [facility] MCH 25.2(L) 27.0 - 32.0 pcg LAB HEMETOLOGY METHOD 07/27/2024 7:55 AM EST [facility] MCHC 30.2(L) 32.0 - 37.0 g/dL LAB HEMETOLOGY METHOD 07/27/2024 7:55 AM EST [facility] RDW 22.4(H) 11.0 - 15.0 % LAB HEMETOLOGY METHOD 07/27/2024 7:55 AM EST [facility] Platelets 143 130 - 400 K/mcL LAB HEMETOLOGY METHOD 07/27/2024 7:55 AM EST [facility] MPV 11.2(H) 7.0 - 11.0 FL LAB HEMETOLOGY METHOD 07/27/2024 7:55 AM EST [facility] NRBC 0.0 <1.0 % LAB HEMETOLOGY METHOD 07/27/2024 7:55 AM EST [facility] NRBC Absolute 0.00 <0.10 K/mcL LAB HEMETOLOGY METHOD 07/27/2024 7:[address] [facility] Blood Venous blood specimen / Unknown Venipuncture / Unknown 07/27/2024 6:27 AM EST 07/27/2024 7:41 AM EST us Estdimas Stuart MD LAB BLOOD ORDERABLES Final R esult [facility] [address] [place] [address], * (ABNORMAL) Basic metabolic panel (07/27/2024 6:27 AM EST) Sodium 130(L) 133 - 145 mmol/L LAB CHEMISTRY METHOD 07/27/2024 8:43 AM EST [facility] Potassium 4.2 3.5 - 5.5 mmol/L LAB CHEMISTRY METHOD 07/27/2024 8:[address] [facility] Chloride 93(L) 96 - 110 mmol/L LAB CHEMISTRY METHOD 07/27/2024 8:[address] [facility] CO2 30 21 - 32 mmol/L LAB CHEMISTRY METHOD 07/27/2024 8:[address] [facility] Anion Gap 7 3 - 11 LAB CHEMISTRY METHOD 07/27/2024 8:[address] [facility] Glucose 182(H) 70 - 100 mg/dL LAB CHEMISTRY METHOD 07/27/2024 8:[address] [facility] BUN 62(H) 5 - 25 mg/dL LAB CHEMISTRY METHOD 07/27/2024 8:[address] [facility] Creatinine 3.88(H) 0.50 - 1.10 mg/dL LAB CHEMISTRY METHOD 07/27/2024 8:[address] [facility] eGFR 11(L) >=60 mL/min/1. 73m2 LAB CHEMISTRY METHOD 07/27/2024 8:[address] [facility] Comment:Calculation based on the??Chronic Kidney Disease Epidemiology Collaboration (CKD-EPI) equation refit??without adjustment for race. BUN/Creatinine Ratio 16.0 LAB CHEMISTRY METHOD 07/27/2024 8:[address] [facility] Calcium 8.2(L) 8.5 - 10.5 mg/dL LAB CHEMISTRY METHOD 07/27/2024 8:[address] [facility] Blood Venous blood specimen / Unknown Venipuncture / Unknown 07/27/2024 6:27 AM EST 07/27/2024 7:41 AM EST us Jonny Mathur MD LAB BLOOD ORDERABLES Final Re sult [facility] [address] [place] [address], * (ABNORMAL) POCT Glucose, blood (07/26/2024 8:23 PM EST) Glucose POCT 189(H) 70 - 100 mg/dL 07/26/2024 8:24 PM EST [facility] Blood Capillary blood specimen / Unknown 07/26/2024 8:23 PM EST 07/26/2024 8:25 PM EST us Jonny Mathur MD LAB POINT OF CARE TE ST DOCKED DEVICE UNSOLICITED RESULTS Final Result [facility] [address] [place] [address], [place] [phone] * (ABNORMAL) POCT Glucose, blood (07/26/2024 4:28 PM EST) Glucose POCT 192(H) 70 - 100 mg/dL 07/26/2024 4:29 PM EST [facility] Blood Capillary blood specimen / Unknown 07/26/2024 4:28 PM EST 07/26/2024 4:30 PM EST us Jonny Mathur MD LAB POINT OF CARE TE ST DOCKED DEVICE UNSOLICITED RESULTS Final Result [facility] [address] [place] [address], [place] [phone] * (ABNORMAL) POCT Glucose, blood (07/26/2024 11:15 AM EST) Glucose POCT 180(H) 70 - 100 mg/dL 07/26/2024 11:17 AM EST [facility] Blood Capillary blood specimen / Unknown 07/26/2024 11:15 AM EST 07/26/2024 11:18 AM EST us Jonny Mathur MD LAB POINT OF CARE TE ST DOCKED DEVICE UNSOLICITED RESULTS Final Result Performing Organization Address [facility]/ZIP Co de Phone Number [facility] [address] [place] [address], [place] [phone] * (ABNORMAL) POCT Glucose, blood (07/26/2024 8:08 AM EST) Glucose POCT 128(H) 70 - 100 mg/dL 07/26/2024 8:09 AM EST [facility] Blood Capillary blood specimen / Unknown 07/26/2024 8:08 AM EST 07/26/2024 8:10 AM EST us Jonny Mathur MD LAB POINT OF CARE TE ST DOCKED DEVICE UNSOLICITED RESULTS Final Result Performing Organization Address [facility] Phone Number [facility] [address] [place] [address], [place] [phone] * Heparin and low molecular weight anti Xa level (07/26/2024 6:06 AM EST) [facility] Signature Heparin Anti-Xa 0.65 0.30 - 0.70 I Unit/mL LAB COAGULATION METHOD 07/26/2024 7:08 AM EST [facility] Blood Venous blood specimen / Unknown Venipuncture / Unknown 07/26/2024 6:06 AM EST 07/26/2024 6:19 AM EST Narrative [facility] - 07/26/2024 7:08 AM EST Therapeutic range listed is for Unfractionated Heparin. LMW Heparin therapeutic range: 0.50-1.20 IU/mL us Jonny Mathur MD LAB BLOOD ORDERABLES Final Re sult Performing Organization Address [facility]/ZIP Co de Phone Number [facility] [address] [place] [address], [place] [phone] * (ABNORMAL) POCT Glucose, blood (07/25/2024 9:22 PM EST) Glucose POCT 183(H) 70 - 100 mg/dL 07/25/2024 9:22 PM EST [facility] Blood Capillary blood specimen / Unknown 07/25/2024 9:22 PM EST 07/25/2024 9:23 PM EST us Jonny Mathur MD LAB POINT OF CARE TE ST DOCKED DEVICE UNSOLICITED RESULTS Final Result [facility] [address] [place] [address], [place] [phone] * (ABNORMAL) POCT Glucose, blood (07/25/2024 4:02 PM EST) Glucose POCT 194(H) 70 - 100 mg/dL 07/25/2024 4:02 PM EST [facility] Blood Capillary blood specimen / Unknown 07/25/2024 4:02 PM EST 07/25/2024 4:03 PM EST us Jonny Mathur MD LAB POINT OF CARE TE ST DOCKED DEVICE UNSOLICITED RESULTS Final Result Performing Organization Address City/[facility]/ZIP Co de Phone Number [facility] [address] [place] [address], [place] [phone] * (ABNORMAL) POCT Glucose, blood (07/25/2024 2:56 PM EST) Glucose POCT 143(H) 70 - 100 mg/dL 07/25/2024 2:56 PM EST [facility] Blood Capillary blood specimen / Unknown 07/25/2024 2:56 PM EST 07/25/2024 2:58 PM EST us Jonny Mathur MD LAB POINT OF CARE TE ST DOCKED DEVICE UNSOLICITED RESULTS Final Result [facility] [address] [place] [address], [place] [phone] * (ABNORMAL) POCT Glucose, blood (07/25/2024 8:18 AM EST) [facility] Glucose POCT 212(H) 70 - 100 mg/dL 07/25/2024 8:19 AM EST [facility] Blood Capillary blood specimen / Unknown 07/25/2024 8:18 AM EST 07/25/2024 8:20 AM EST Jonny Mathur MD LAB POINT OF CARE TE ST DOCKED DEVICE UNSOLICITED RESULTS Final Result [facility] [address] [place] [address], [place] [phone] * (ABNORMAL) CBC auto differential (07/25/2024 5:35 AM EST) [facility] WBC 14.2(H) 4.8 - 10.8 K/mcL LAB HEMETOLOGY METHOD 07/25/2024 7:[address] [facility] RBC 3.10(L) 3.80 - 4.80 M/mcL LAB HEMETOLOGY METHOD 07/25/2024 7:[address] [facility] Hemoglobin 8.0(L) 11.5 - 16.0 g/dL LAB HEMETOLOGY METHOD 07/25/2024 7:[address] [facility] Hematocrit 25.7(L) 35.0 - 47.0 % LAB HEMETOLOGY METHOD 07/25/2024 7:[address] [facility] MCV 82.1 79.0 - 98.0 FL LAB HEMETOLOGY METHOD 07/25/2024 7:[address] [facility] MCH 25.6(L) 27.0 - 32.0 pcg LAB HEMETOLOGY METHOD 07/25/2024 7:[address] [facility] MCHC 31.1(L) 32.0 - 37.0 g/dL LAB HEMETOLOGY METHOD 07/25/2024 7:[address] [facility] RDW 21.7(H) 11.0 - 15.0 % LAB HEMETOLOGY METHOD 07/25/2024 7:[address] [facility] Platelets 158 130 - 400 K/mcL LAB HEMETOLOGY METHOD 07/25/2024 7:[address] [facility] MPV 10.6 7.0 - 11.0 FL LAB HEMETOLOGY METHOD 07/25/2024 7:[address] [facility] NRBC 0.0 <1.0 % LAB HEMETOLOGY METHOD 07/25/2024 7:[address] [facility] NRBC Absolute 0.00 <0.10 K/mcL LAB HEMETOLOGY METHOD 07/25/2024 7:[address] [facility] Neutrophils Relative 83.3 % LAB HEMETOLOGY METHOD 07/25/2024 7:[address] [facility] Lymphocytes Relative 8.9 % LAB HEMETOLOGY METHOD 07/25/2024 7:[address] [facility] Monocytes Relative 6.3 % LAB HEMETOLOGY METHOD 07/25/2024 7:[address] [facility] LAB Eosinophils Relative 0.6 % LAB HEMETOLOGY METHOD 07/25/2024 7:[address] [facility] LAB Basophils Relative 0.1 % LAB HEMETOLOGY METHOD 07/25/2024 7:[address] [facility] LAB Immature Granulocytes Relative 0.8 % LAB HEMETOLOGY METHOD 07/25/2024 7:[address] [facility] LAB Neutrophils Absolute 11.87(H) 1.50 - 7.00 K/mcL LAB HEMETOLOGY METHOD 07/25/2024 7:[address] [facility] LAB Lymphocytes Absolute 1.26 1.00 - 5.00 K/mcL LAB HEMETOLOGY METHOD 07/25/2024 7:21 AM EST [facility] LAB Monocytes Absolute 0.89 0.20 - 1.00 K/mcL LAB HEMETOLOGY METHOD 07/25/2024 7:21 AM EST [facility] LAB Eosinophils Absolute 0.08 0.00 - 0.50 K/[facility] LAB HEMETOLOGY METHOD 07/25/2024 7:21 AM EST [facility] LAB Basophils Absolute 0.01 0.00 - 0.20 K/[facility] LAB HEMETOLOGY METHOD 07/25/2024 7:21 AM EST [facility] Immature Granulocytes Absolute 0.11(H) 0.00 - 0.03 K/mcL LAB HEMETOLOGY METHOD 07/25/2024 7:21 AM EST [facility] Blood Venous blood specimen / Unknown Venipuncture / Unknown 07/25/2024 5:35 AM EST 07/25/2024 6:48 AM EST us Estdimas Stuart MD LAB BLOOD ORDERABLES Final R esult [facility] [address] [place] [address], * Heparin and low molecular weight anti Xa level (07/25/2024 5:35 AM EST) Heparin Anti-Xa 0.61 0.30 - 0.70 I Unit/mL LAB COAGULATION METHOD 07/25/2024 7:17 AM EST [facility] Blood Venous blood specimen / Unknown Venipuncture / Unknown 07/25/2024 5:35 AM EST 07/25/2024 6:48 AM EST Narrative [facility] - 07/25/2024 7:17 AM EST Therapeutic range listed is for Unfractionated Heparin. LMW Heparin therapeutic range: 0.50-1.20 IU/mL us Lencho Stuart MD LAB BLOOD ORDERABLES Final R esult [facility] [address] [place] [address], [place] [phone] * (ABNORMAL) Basic metabolic panel (07/25/2024 5:35 AM EST) Sodium 132(L) 133 - 145 mmol/L LAB CHEMISTRY METHOD 07/25/2024 7:[address] [facility] LAB Potassium 4.2 3.5 - 5.5 mmol/L LAB CHEMISTRY METHOD 07/25/2024 7:[address] [facility] Chloride 94(L) 96 - 110 mmol/L LAB CHEMISTRY METHOD 07/25/2024 7:[address] [facility] LAB CO2 30 21 - 32 mmol/L LAB CHEMISTRY METHOD 07/25/2024 7:[address] [facility] LAB Anion Gap 8 3 - 11 LAB CHEMISTRY METHOD 07/25/2024 7:[address] [facility] Glucose 194(H) 70 - 100 mg/dL LAB CHEMISTRY METHOD 07/25/2024 7:[address] [facility] BUN 77(H) 5 - 25 mg/dL LAB CHEMISTRY METHOD 07/25/2024 7:[address] [facility] Creatinine 3.91(H) 0.50 - 1.10 mg/dL LAB CHEMISTRY METHOD 07/25/2024 7:[address] [facility] LAB eGFR 11(L) >=60 mL/min/1. 73m2 LAB CHEMISTRY METHOD 07/25/2024 7:[address] [facility] LAB Comment:Calculation based on the??Chronic Kidney Disease Epidemiology Collaboration (CKD-EPI) equation refit??without adjustment for race. BUN/Creatinine Ratio 19.7 LAB CHEMISTRY METHOD 07/25/2024 7:[address] [facility] Calcium 8.2(L) 8.5 - 10.5 mg/dL LAB CHEMISTRY METHOD 07/25/2024 7:57 AM EST [facility] Blood Venous blood specimen / Unknown Venipuncture / Unknown 07/25/2024 5:35 AM EST 07/25/2024 6:48 AM EST us Lencho Stuart MD LAB BLOOD ORDERABLES Final R esult [facility] [address] [place] [address], [place] [phone] * (ABNORMAL) POCT Glucose, blood (07/24/2024 7:58 PM EST) Glucose POCT 228(H) 70 - 100 mg/dL 07/24/2024 7:58 PM EST [facility] Blood Capillary blood specimen / Unknown 07/24/2024 7:58 PM EST 07/24/2024 8:00 PM EST us Lencho Stuart MD LAB POINT OF CARE TE ST DOCKED DEVICE UNSOLICITED RESULTS Final Result Performing Organization Address [facility] Co de Phone Number [facility] [address] [place] [address], [place] [phone] * (ABNORMAL) POCT Glucose, blood (07/24/2024 3:24 PM EST) Glucose POCT 239(H) 70 - 100 mg/dL 07/24/2024 3:25 PM EST [facility] POCT Comment RN Notified 07/24/2024 3:25 PM EST [facility] Blood Capillary blood specimen / Unknown 07/24/2024 3:24 PM EST 07/24/2024 3:26 PM EST us Lencho Stuart MD LAB POINT OF CARE TE ST DOCKED DEVICE UNSOLICITED RESULTS Final Result Performing Organization Address City/[facility]/ZIP Co de Phone Number [facility] [address] [place] [address], [place] [phone] * (ABNORMAL) POCT Glucose, blood (07/24/2024 11:39 AM EST) Glucose POCT 260(H) 70 - 100 mg/dL 07/24/2024 11:40 AM EST [facility] POCT Comment RN Notified 07/24/2024 11:40 AM EST [facility] Blood Capillary blood specimen / Unknown 07/24/2024 11:39 AM EST 07/24/2024 11:41 AM EST us Lencho Stuart MD LAB POINT OF CARE TE ST DOCKED DEVICE UNSOLICITED RESULTS Final Result Performing Organization Address [facility] Co de Phone Number [facility] [address] [place] [address], [place] [phone] * (ABNORMAL) POCT Glucose, blood (07/24/2024 7:32 AM EST) Glucose POCT 301(H) 70 - 100 mg/dL 07/24/2024 7:33 AM EST [facility] POCT Comment RN Notified 07/24/2024 7:33 AM EST [facility] Blood Capillary blood specimen / Unknown 07/24/2024 7:32 AM EST 07/24/2024 7:34 AM EST us Lencho Stuart MD LAB POINT OF CARE TE ST DOCKED DEVICE UNSOLICITED RESULTS Final Result Performing Organization Address City/[facility]/ZIP Co de Phone Number [facility] [address] [place] [address], [place] [phone] * Heparin and low molecular weight anti Xa level (07/24/2024 6:48 AM EST) [facility] Heparin Anti-Xa 0.60 0.30 - 0.70 I Unit/mL LAB COAGULATION METHOD 07/24/2024 7:[address] [facility] Blood Venous blood specimen / Unknown Venipuncture / Unknown 07/24/2024 6:48 AM EST 07/24/2024 7:03 AM EST [facility] - 07/24/2024 7:29 AM EST Therapeutic range listed is for Unfractionated Heparin. LMW Heparin therapeutic range: 0.50-1.20 IU/mL [facility] LAB BLOOD ORDERABLES Final R esult [facility] [address] [place] [address], * (ABNORMAL) CBC auto differential (07/24/2024 6:48 AM EST) [facility] WBC 13.1(H) 4.8 - 10.8 K/mcL LAB HEMETOLOGY METHOD 07/24/2024 7:[address] [facility] RBC 3.10(L) 3.80 - 4.80 M/mcL LAB HEMETOLOGY METHOD 07/24/2024 7:[address] [facility] Hemoglobin 7.7(L) 11.5 - 16.0 g/dL LAB HEMETOLOGY METHOD 07/24/2024 7:[address] [facility] Hematocrit 25.3(L) 35.0 - 47.0 % LAB HEMETOLOGY METHOD 07/24/2024 7:[address] [facility] MCV 81.4 79.0 - 98.0 FL LAB HEMETOLOGY METHOD 07/24/2024 7:[address] [facility] MCH 24.8(L) 27.0 - 32.0 pcg LAB HEMETOLOGY METHOD 07/24/2024 7:[address] [facility] MCHC 30.4(L) 32.0 - 37.0 g/dL LAB HEMETOLOGY METHOD 07/24/2024 7:[address] [facility] RDW 21.7(H) 11.0 - 15.0 % LAB HEMETOLOGY METHOD 07/24/2024 7:[address] [facility] LAB Platelets 174 130 - 400 K/mcL LAB HEMETOLOGY METHOD 07/24/2024 7:[address] [facility] MPV 10.6 7.0 - 11.0 FL LAB HEMETOLOGY METHOD 07/24/2024 7:[address] [facility] NRBC 0.0 <1.0 % LAB HEMETOLOGY METHOD 07/24/2024 7:[address] [facility] NRBC Absolute 0.00 <0.10 K/mcL LAB HEMETOLOGY METHOD 07/24/2024 7:[address] [facility] Neutrophils Relative 84.4 % LAB HEMETOLOGY METHOD 07/24/2024 7:[address] [facility] Lymphocytes Relative 6.4 % LAB HEMETOLOGY METHOD 07/24/2024 7:[address] [facility] Monocytes Relative 8.3 % LAB HEMETOLOGY METHOD 07/24/2024 7:[address] [facility] Eosinophils Relative 0.0 % LAB HEMETOLOGY METHOD 07/24/2024 7:[address] [facility] Basophils Relative 0.1 % LAB HEMETOLOGY METHOD 07/24/2024 7:[address] [facility] Immature Granulocytes Relative 0.8 % LAB HEMETOLOGY METHOD 07/24/2024 7:[address] [facility] Neutrophils Absolute 11.03(H) 1.50 - 7.00 K/mcL LAB HEMETOLOGY METHOD 07/24/2024 7:30 AM EST [facility] Lymphocytes Absolute 0.83(L) 1.00 - 5.00 K/[facility] LAB HEMETOLOGY METHOD 07/24/2024 7:30 AM EST [facility] Monocytes Absolute 1.08(H) 0.20 - 1.00 K/[facility] LAB HEMETOLOGY METHOD 07/24/2024 7:30 AM EST [facility] Eosinophils Absolute 0.00 0.00 - 0.50 K/[facility] LAB HEMETOLOGY METHOD 07/24/2024 7:30 AM EST [facility] Basophils Absolute 0.01 0.00 - 0.20 K/[facility] LAB HEMETOLOGY METHOD 07/24/2024 7:[address] [facility] Immature Granulocytes Absolute 0.11(H) 0.00 - 0.03 K/[facility] LAB HEMETOLOGY METHOD 07/24/2024 7:30 AM EST [facility] Blood Venous blood specimen / Unknown Venipuncture / Unknown 07/24/2024 6:48 AM EST 07/24/2024 7:03 AM EST [facility] LAB BLOOD ORDERABLES Final R esult [facility] [address] [place] [address], * (ABNORMAL) CBC - Every 3 Days (07/24/2024 6:48 AM EST) WBC 13.1(H) 4.8 - 10.8 K/[facility] LAB HEMETOLOGY METHOD 07/24/2024 7:30 AM EST [facility] RBC 3.10(L) 3.80 - 4.80 M/[facility] LAB HEMETOLOGY METHOD 07/24/2024 7:30 AM EST [facility] Hemoglobin 7.7(L) 11.5 - 16.0 g/dL LAB HEMETOLOGY METHOD 07/24/2024 7:[address] [facility] Hematocrit 25.3(L) 35.0 - 47.0 % LAB HEMETOLOGY METHOD 07/24/2024 7:[address] [facility] MCV 81.4 79.0 - 98.0 FL LAB HEMETOLOGY METHOD 07/24/2024 7:[address] [facility] MCH 24.8(L) 27.0 - 32.0 pcg LAB HEMETOLOGY METHOD 07/24/2024 7:[address] [facility] MCHC 30.4(L) 32.0 - 37.0 g/dL LAB HEMETOLOGY METHOD 07/24/2024 7:[address] [facility] LAB RDW 21.7(H) 11.0 - 15.0 % LAB HEMETOLOGY METHOD 07/24/2024 7:[address] [facility] LAB Platelets 174 130 - 400 K/mcL LAB HEMETOLOGY METHOD 07/24/2024 7:[address] [facility] LAB MPV 10.6 7.0 - 11.0 FL LAB HEMETOLOGY METHOD 07/24/2024 7:[address] [facility] NRBC 0.0 <1.0 % LAB HEMETOLOGY METHOD 07/24/2024 7:[address] [facility] NRBC Absolute 0.00 <0.10 K/mcL LAB HEMETOLOGY METHOD 07/24/2024 7:[address] [facility] Blood Venous blood specimen / Unknown Venipuncture / Unknown 07/24/2024 6:48 AM EST 07/24/2024 7:03 AM EST us [facility] LAB BLOOD ORDERABLES Final R esult [facility] [address] [place] [address], * (ABNORMAL) Basic metabolic panel (07/24/2024 6:48 AM EST) Sodium 132(L) 133 - 145 mmol/L LAB CHEMISTRY METHOD 07/24/2024 8:[address] [facility] Potassium 4.1 3.5 - 5.5 mmol/L LAB CHEMISTRY METHOD 07/24/2024 8:[address] [facility] Chloride 94(L) 96 - 110 mmol/L LAB CHEMISTRY METHOD 07/24/2024 8:[address] [facility] CO2 29 21 - 32 mmol/L LAB CHEMISTRY METHOD 07/24/2024 8:[address] [facility] Anion Gap 9 3 - 11 LAB CHEMISTRY METHOD 07/24/2024 8:[address] [facility] Glucose 286(H) 70 - 100 mg/dL LAB CHEMISTRY METHOD 07/24/2024 8:[address] [facility] BUN 54(H) 5 - 25 mg/dL LAB CHEMISTRY METHOD 07/24/2024 8:[address] [facility] Creatinine 2.84(H) 0.50 - 1.10 mg/dL LAB CHEMISTRY METHOD 07/24/2024 8:[address] [facility] LAB eGFR 16(L) >=60 mL/min/1. 73m2 LAB CHEMISTRY METHOD 07/24/2024 8:[address] [facility] LAB Comment:Calculation based on the??Chronic Kidney Disease Epidemiology Collaboration (CKD-EPI) equation refit??without adjustment for race. BUN/Creatinine Ratio 19.0 LAB CHEMISTRY METHOD 07/24/2024 8:[address] [facility] Calcium 8.0(L) 8.5 - 10.5 mg/dL LAB CHEMISTRY METHOD 07/24/2024 8:[address] [facility] Blood Venous blood specimen / Unknown Venipuncture / Unknown 07/24/2024 6:48 AM EST 07/24/2024 7:03 AM EST us Lencho Stuart MD LAB BLOOD ORDERABLES Final R esult Performing Organization Address [facility]/ZIP Co de Phone Number [facility] [address] [place] [address], [place] [phone] * Heparin and low molecular weight anti Xa level (07/24/2024 12:07 AM EST) Heparin Anti-Xa 0.69 0.30 - 0.70 I Unit/mL LAB COAGULATION METHOD 07/24/2024 12:28 AM EST [facility] Blood Venous blood specimen / Unknown Venipuncture / Unknown 07/24/2024 12:07 AM EST 07/24/2024 12:17 AM EST Narrative [facility] - 07/24/2024 12:28 AM EST Therapeutic range listed is for Unfractionated Heparin. LMW Heparin therapeutic range: 0.50-1.20 IU/mL us Lencho Stuart MD LAB BLOOD ORDERABLES Final R esult Performing Organization Address [facility] Co de Phone Number [facility] [address] [place] [address], [place] [phone] * (ABNORMAL) POCT Glucose, blood (07/23/2024 7:35 PM EST) Glucose POCT 320(H) 70 - 100 mg/dL 07/23/2024 7:35 PM EST [facility] Blood Capillary blood specimen / Unknown 07/23/2024 7:35 PM EST 07/23/2024 7:37 PM EST us Lencho Stuart MD LAB POINT OF CARE TE ST DOCKED DEVICE UNSOLICITED RESULTS Final Result [facility] ([facility]) [facility] [address] [place] [address], [place] [phone] * Transfuse RBC (07/23/2024 6:19 PM EST) Lencho Stuart MD BLOOD TRANSFUSION ORDERABLES Final Result * Transfuse RBC: 1 Units (07/23/2024 6:19 PM EST) Lencho Stuart MD BLOOD TRANSFUSION ORDERABLES Final Result * Insert Midline (07/23/2024 4:52 PM EST) Narrative Maggy Spencer RN - 07/23/2024 4:52 PM EST Maggy Spencer RN ? 07/23/2024 ??5:02 PM Midline Insertion Procedure Note Procedure: Insertion of 18g/10cm [employer] Powerglide midline Lot: [id number] Exp: 2025-05-28 Indications: ??Difficult draw with frequent [...] well. Recommendations: May use for blood draws Lencho Stuart MD IV THERAPY ORDERABLES Final Result * (ABNORMAL) POCT Glucose, blood (07/23/2024 4:30 PM EST) Glucose POCT 248(H) 70 - 100 mg/dL 07/23/2024 4:31 PM EST [facility] ([facility]) [facility] Blood Capillary blood specimen / Unknown 07/23/2024 4:30 PM EST 07/23/2024 4:32 PM EST us Lencho Stuart MD LAB POINT OF CARE TE ST DOCKED DEVICE UNSOLICITED RESULTS Final Result [facility] [address] [place] [address], [place] [phone] * (ABNORMAL) Heparin and low molecular weight anti Xa level (07/23/2024 4:08 PM EST) Heparin Anti-Xa 0.82(H) 0.30 - 0.70 I Unit/mL LAB COAGULATION METHOD 07/23/2024 4:33 PM EST [facility] Blood Venous blood specimen / Unknown Venipuncture / Unknown 07/23/2024 4:08 PM EST 07/23/2024 4:24 PM EST Narrative [facility] - 07/23/2024 4:33 PM EST Therapeutic range listed is for Unfractionated Heparin. LMW Heparin therapeutic range: 0.50-1.20 IU/mL us Lencho Stuart MD LAB BLOOD ORDERABLES Final R esult [facility] [address] [place] [address], [place] [phone] * Type and screen (07/23/2024 12:31 PM EST) ABO Group O 07/23/2024 2:33 PM EST [facility] Rh Type Positive 07/23/2024 2:33 PM EST [facility] Antibody Screen Negative 07/23/2024 2:33 PM EST [facility] Blood Venous blood specimen / Unknown Venipuncture / Unknown 07/23/2024 12:31 PM EST 07/23/2024 12:50 PM EST Lencho Stuart MD LAB BLOOD BANK TEST ORDERABL ES Final Result Performing Organization Address City/[facility]/ZIP Co de Phone Number [facility] [address] [place] [address], * (ABNORMAL) POCT Glucose, blood (07/23/2024 12:12 PM EST) Glucose POCT 204(H) 70 - 100 mg/dL 07/23/2024 12:[address] [facility] Blood Capillary blood specimen / Unknown 07/23/2024 12:12 PM EST 07/23/2024 12:14 PM EST [facility] LAB POINT OF CARE TE ST DOCKED DEVICE UNSOLICITED RESULTS Final Result Performing Organization Address [facility]/ZIP Co de Phone Number [facility] [address] [place] [address], * Prepare RBC: 1 Units (07/23/2024 11:14 AM EST) Product Code [id number] 07/23/2024 3:[address] [facility] Unit Number [id number] 07/23/19 3:[address] [facility] Crossmatch Compatible 07/23/2024 2:[address] [facility] Dispense Status Transfused 07/23/2024 3:[address] [facility] Unit ABO Rh OPOS 07/23/2024 3:[address] [facility] Unit Expiration Date Time [id number] 07/23/2024 3:[address] [facility] Unit Blood Type 5100 07/23/2024 3:[address] [facility] Blood Venous blood specimen / Unknown 07/23/2024 11:14 AM EST 07/23/2024 12:50 PM EST Lencho Stuart MD BLOOD BANK PRODUCT ORDERABLE S Final Result Performing Organization Address City/[facility]/ZIP Co de Phone Number [facility] [address] [place] [address], [place] [phone] * (ABNORMAL) Heparin and low molecular weight anti Xa level (07/23/2024 8:40 AM EST) Pathologist [facility] Heparin Anti-Xa 0.77(H) 0.30 - 0.70 I Unit/mL LAB COAGULATION METHOD 07/23/2024 9:05 AM EST [facility] Blood Venous blood specimen / Unknown Venipuncture / Unknown 07/23/2024 8:40 AM EST 07/23/2024 8:47 AM EST Narrative [facility] - 07/23/2024 9:05 AM EST Therapeutic range listed is for Unfractionated Heparin. LMW Heparin therapeutic range: 0.50-1.20 IU/mL Lencho Stuart MD LAB BLOOD ORDERABLES Final R esult [facility] [address] [place] [address], [place] [phone] * (ABNORMAL) CBC auto differential (07/23/2024 5:44 AM EST) Pathologist [facility] WBC 11.6(H) 4.8 - 10.8 K/mcL LAB HEMETOLOGY METHOD 07/23/2024 7:10 AM EST [facility] RBC 2.80(L) 3.80 - 4.80 M/[facility] LAB HEMETOLOGY METHOD 07/23/2024 7:10 AM EST [facility] Hemoglobin 6.9(L) 11.5 - 16.0 g/dL LAB HEMETOLOGY METHOD 07/23/2024 7:10 AM EST [facility] Hematocrit 23.0(L) 35.0 - 47.0 % LAB HEMETOLOGY METHOD 07/23/2024 7:[address] [facility] MCV 81.6 79.0 - 98.0 FL LAB HEMETOLOGY METHOD 07/23/2024 7:[address] [facility] MCH 24.5(L) 27.0 - 32.0 pcg LAB HEMETOLOGY METHOD 07/23/2024 7:[address] [facility] MCHC 30.0(L) 32.0 - 37.0 g/dL LAB HEMETOLOGY METHOD 07/23/2024 7:[address] [facility] RDW 23.3(H) 11.0 - 15.0 % LAB HEMETOLOGY METHOD 07/23/2024 7:[address] [facility] Platelets 206 130 - 400 K/mcL LAB HEMETOLOGY METHOD 07/23/2024 7:[address] [facility] MPV 10.5 7.0 - 11.0 FL LAB HEMETOLOGY METHOD 07/23/2024 7:[address] [facility] NRBC 0.0 <1.0 % LAB HEMETOLOGY METHOD 07/23/2024 7:[address] [facility] NRBC Absolute 0.00 <0.10 K/mcL LAB HEMETOLOGY METHOD 07/23/2024 7:[address] [facility] Neutrophils Relative 90.8 % LAB HEMETOLOGY METHOD 07/23/2024 7:[address] [facility] Lymphocytes Relative 3.4 % LAB HEMETOLOGY METHOD 07/23/2024 7:[address] [facility] Monocytes Relative 5.0 % LAB HEMETOLOGY METHOD 07/23/2024 7:[address] [facility] Eosinophils Relative 0.0 % LAB HEMETOLOGY METHOD 07/23/2024 7:[address] [facility] Basophils Relative 0.1 % LAB HEMETOLOGY METHOD 07/23/2024 7:10 AM EST [facility] Immature Granulocytes Relative 0.7 % LAB HEMETOLOGY METHOD 07/23/2024 7:10 AM EST [facility] Neutrophils Absolute 10.52(H) 1.50 - 7.00 K/mcL LAB HEMETOLOGY METHOD 07/23/2024 7:10 AM EST [facility] Lymphocytes Absolute 0.39(L) 1.00 - 5.00 K/mcL LAB HEMETOLOGY METHOD 07/23/2024 7:10 AM EST [facility] Monocytes Absolute 0.58 0.20 - 1.00 K/mcL LAB HEMETOLOGY METHOD 07/23/2024 7:10 AM EST [facility] Eosinophils Absolute 0.00 0.00 - 0.50 K/mcL LAB HEMETOLOGY METHOD 07/23/2024 7:10 AM EST [facility] Basophils Absolute 0.01 0.00 - 0.20 K/mcL LAB HEMETOLOGY METHOD 07/23/2024 7:10 AM EST [facility] Immature Granulocytes Absolute 0.08(H) 0.00 - 0.03 K/mcL LAB HEMETOLOGY METHOD 07/23/2024 7:10 AM EST [facility] Blood Venous blood specimen / Unknown Venipuncture / Unknown 07/23/2024 5:44 AM EST 07/23/2024 6:50 AM EST us [facility] LAB BLOOD ORDERABLES Final R esult [facility] [address] [place] [address], * (ABNORMAL) Basic metabolic panel (07/23/2024 5:44 AM EST) Sodium 130(L) 133 - 145 mmol/L LAB CHEMISTRY METHOD 07/23/2024 8:[address] [facility] Potassium 5.5 3.5 - 5.5 mmol/L LAB CHEMISTRY METHOD 07/23/2024 8:[address] [facility] Chloride 92(L) 96 - 110 mmol/L LAB CHEMISTRY METHOD 07/23/2024 8:[address] [facility] CO2 29 21 - 32 mmol/L LAB CHEMISTRY METHOD 07/23/2024 8:[address] [facility] Anion Gap 9 3 - 11 LAB CHEMISTRY METHOD 07/23/2024 8:[address] [facility] Glucose 378(H) 70 - 100 mg/dL LAB CHEMISTRY METHOD 07/23/2024 8:[address] [facility] BUN 76(H) 5 - 25 mg/dL LAB CHEMISTRY METHOD 07/23/2024 8:[address] [facility] Creatinine 4.16(H) 0.50 - 1.10 mg/dL LAB CHEMISTRY METHOD 07/23/2024 8:[address] [facility] eGFR 10(L) >=60 mL/min/1. 73m2 LAB CHEMISTRY METHOD 07/23/2024 8:[address] [facility] Comment:Calculation based on the??Chronic Kidney Disease Epidemiology Collaboration (CKD-EPI) equation refit??without adjustment for race. BUN/Creatinine Ratio 18.3 LAB CHEMISTRY METHOD 07/23/2024 8:[address] [facility] Calcium 7.9(L) 8.5 - 10.5 mg/dL LAB CHEMISTRY METHOD 07/23/2024 8:[address] [facility] Blood Venous blood specimen / Unknown Venipuncture / Unknown 07/23/2024 5:44 AM EST 07/23/2024 6:50 AM EST [facility] LAB BLOOD ORDERABLES Final R esult [facility] [address] [place] [address], [place] [phone] * (ABNORMAL) Heparin and low molecular weight anti Xa level (07/23/2024 2:05 AM EST) [facility] Heparin Anti-Xa 0.87(H) 0.30 - 0.70 I Unit/mL LAB COAGULATION METHOD 07/23/2024 2:20 AM EST [facility] Blood Venous blood specimen / Unknown Venipuncture / Unknown 07/23/2024 2:05 AM EST 07/23/2024 2:10 AM EST Narrative [facility] - 07/23/2024 2:20 AM EST Therapeutic range listed is for Unfractionated Heparin. LMW Heparin therapeutic range: 0.50-1.20 IU/mL us Lencho Stuart MD LAB BLOOD ORDERABLES Final R esult Performing Organization Address [facility]/ZIP Co de Phone Number [facility] [address] [place] [address], [place] [phone] * (ABNORMAL) POCT Glucose, blood (07/22/2024 8:10 PM EST) [facility] Glucose POCT 304(H) 70 - 100 mg/dL 07/22/2024 8:10 PM EST [facility] Blood Capillary blood specimen / Unknown 07/22/2024 8:10 PM EST 07/22/2024 8:11 PM EST us Lencho Stuart MD LAB POINT OF CARE TE ST DOCKED DEVICE UNSOLICITED RESULTS Final Result Performing Organization Address [facility]/ZIP Co de Phone Number [facility] [address] [place] [address], [place] [phone] * (ABNORMAL) Hemoglobin and hematocrit (07/22/2024 6:40 PM EST) Hemoglobin 7.1(L) 11.5 - 16.0 g/dL LAB HEMETOLOGY METHOD 07/22/2024 7:24 PM EST [facility] Hematocrit 23.3(L) 35.0 - 47.0 % LAB HEMETOLOGY METHOD 07/22/2024 7:24 PM EST [facility] Blood Venous blood specimen / Unknown Venipuncture / Unknown 07/22/2024 6:40 PM EST 07/22/2024 7:20 PM EST Fela Palomo MD LAB BLOOD ORDERABLES Final Resu lt [facility] [address] [place] [address], [place] [phone] * (ABNORMAL) POCT Glucose, blood (07/22/2024 4:10 PM EST) Pathologist [facility] Glucose POCT 267(H) 70 - 100 mg/dL 07/22/2024 4:11 PM EST [facility] Blood Capillary blood specimen / Unknown 07/22/2024 4:10 PM EST 07/22/2024 4:12 PM EST Lencho Stuart MD LAB POINT OF CARE TE ST DOCKED DEVICE UNSOLICITED RESULTS Final Result [facility] [address] [place] [address], [place] [phone] * IR Bx Ndl Renal Perc Left [...] Signed Date: 07/22/2024 17:00 ET Workstation ID: [id number] Transcribed By: Self Edit Transcribed Date: 07/22/2024 [...] of fentanyl administered during the procedure. Scanner: [employer] [address] Dose reduction technique: AEC [...] of fentanyl administered during the procedure. Scanner: [employer] [address] Dose reduction technique: AEC [...] Signed Date: 07/22/2024 17:00 ET Workstation ID: [id number] Transcribed By: Self Edit Transcribed Date: 07/22/2024 16:58 ET us Miguel Quiles MD IMG IR PROCEDURES Final Result * AP Kidney biopsy (07/22/2024 3:13 PM EST) Scan Result See Scanned Result 08/15/2024 3:54 PM EST EXTERNAL LAB (NON-INTERFAC ED) Tissue Left kidney structure / Unknown 07/22/2024 3:13 PM EST 07/22/2024 3:41 PM EST us Fela Palomo MD LAB PATHOLOGY ORDERABLES Final Result EXTERNAL LAB (NON-INTERFACED) * Tissue exam (07/22/2024 3:13 PM EST) Addendum [facility] Kidney (addendum) This case was sent to [facility], Department of Pathology, [place], [place] (CLIA: [id number]). Their diagnosis is summarized as follows: Pathologic [...] report for full kidney biopsy diagnosis from [place], [place]) 08/12/2024 10:52 AM DERRICK ZHANG [facility] ([facility]) [facility] Addendum electronically signed by Mitchell Prince MD on 08/12/2024 at 10:52 AM Final Diagnosis Kidney, left-biopsies for routine, immunofluorescence and electron microscopy: -Submitted in toto to [facility] -See addendum report 08/12/2024 10:52 AM [facility] Gross Description A. Kidney, Left, : Labeled kidney L . Received fresh in saline are 3 perez-pink soft tissue cores, ranging from 0.7 x 0.1 cm to 1.7 x 0.1 cm, which are transfered to formalin for light microscopy, Mick fixative for Immunofluorescence, and Glutaraldehyde for electron microscopy. The specimen is entirely submitted to [facility] for analysis. ELOISE 08/12/2024 10:52 AM EST [facility] Disclaimer Unless otherwise specified, all tissue is 10% NB formalin fixed and paraffin embedded. 08/12/2024 10:[address] [facility] Tissue Left kidney structure / Unknown 07/22/2024 3:13 PM EST 07/22/2024 3:39 PM EST Fela Palomo MD LAB PATHOLOGY ORDERABLES Edited Result - Final [facility] [address] [place] [address], [place] [phone] * (ABNORMAL) Prothrombin time with INR (07/22/2024 11:00 AM EST) Protime 16.3(H) 10.6 - 13.9 sec LAB COAGULATION METHOD 07/22/2024 1:[address] [facility] INR 1.3 LAB COAGULATION METHOD 07/22/2024 1:[address] [facility] Blood Venous blood specimen / Unknown Venipuncture / Unknown 07/22/2024 11:00 AM EST 07/22/2024 11:22 AM EST Lencho Stuart MD LAB BLOOD ORDERABLES Final R esult [facility] [address] [place] [address], * (ABNORMAL) Anti-Xa - Every 6 Hours (07/22/2024 11:00 AM EST) Heparin Anti-Xa <0.04(L) 0.30 - 0.70 I Unit/mL LAB COAGULATION METHOD 07/22/2024 12:11 PM EST [facility] Blood Venous blood specimen / Unknown Venipuncture / Unknown 07/22/2024 11:00 AM EST 07/22/2024 11:22 AM EST Narrative [facility] - 07/22/2024 12:11 PM EST Therapeutic range listed is for Unfractionated Heparin. LMW Heparin therapeutic range: 0.50-1.20 IU/mL us Lencho Stuart MD LAB BLOOD ORDERABLES Final R esult [facility] [address] [place] [address], * Lavender tube (07/22/2024 10:53 AM EST) Extra Tube Hold for add-ons. 07/22/2024 1:01 PM EST [facility] Comment:Auto resulted. Blood Venous blood specimen / Unknown 07/22/2024 10:53 AM EST 07/22/2024 11:25 AM EST us Lencho Stuart MD LAB BLOOD ORDERABLES Final R esult [facility] [address] [place] [address], [place] [phone] * SST tube (07/22/2024 10:53 AM EST) Extra Tube Hold for add-ons. 07/22/2024 1:01 PM EST [facility] Comment:Auto resulted. Blood Venous blood specimen / Unknown 07/22/2024 10:53 AM EST 07/22/2024 11:25 AM EST us Lencho Stuart MD LAB BLOOD ORDERABLES Final R esult Performing Organization Address [facility]/ZIP Co de Phone Number [facility] [address] [place] [address], [place] [phone] * (ABNORMAL) POCT Glucose, blood (07/22/2024 10:48 AM EST) Glucose POCT 280(H) 70 - 100 mg/dL 07/22/2024 11:08 AM EST [facility] Blood Capillary blood specimen / Unknown 07/22/2024 10:48 AM EST 07/22/2024 11:09 AM EST us Lencho Stuart MD LAB POINT OF CARE TE ST DOCKED DEVICE UNSOLICITED RESULTS Final Result Performing Organization Address [facility]/ZIP Co de Phone Number [facility] [address] [place] [address], [place] [phone] * (ABNORMAL) POCT Glucose, blood (07/22/2024 8:10 AM EST) Glucose POCT 300(H) 70 - 100 mg/dL 07/22/2024 8:11 AM EST [facility] Blood Capillary blood specimen / Unknown 07/22/2024 8:10 AM EST 07/22/2024 8:13 AM EST us Lencho Stuart MD LAB POINT OF CARE TE ST DOCKED DEVICE UNSOLICITED RESULTS Final Result Performing Organization Address City/[facility]/ZIP Co de Phone Number [facility] [address] [place] [address], [place] [phone] * (ABNORMAL) POCT Glucose, blood (07/22/2024 3:43 AM EST) [facility] Glucose POCT 276(H) 70 - 100 mg/dL 07/22/2024 3:44 AM EST [facility] Blood Capillary blood specimen / Unknown 07/22/2024 3:43 AM EST 07/22/2024 3:45 AM EST Estdimas Stuart MD LAB POINT OF CARE TE ST DOCKED DEVICE UNSOLICITED RESULTS Final Result [facility] [address] [place] [address], * (ABNORMAL) CBC auto differential (07/22/2024 3:11 AM EST) [facility] WBC 9.6 4.8 - 10.8 K/mcL LAB HEMETOLOGY METHOD 07/22/2024 3:[address] [facility] RBC 3.00(L) 3.80 - 4.80 M/mcL LAB HEMETOLOGY METHOD 07/22/2024 3:[address] [facility] Hemoglobin 7.2(L) 11.5 - 16.0 g/dL LAB HEMETOLOGY METHOD 07/22/2024 3:[address] [facility] Hematocrit 24.3(L) 35.0 - 47.0 % LAB HEMETOLOGY METHOD 07/22/2024 3:[address] [facility] MCV 80.5 79.0 - 98.0 FL LAB HEMETOLOGY METHOD 07/22/2024 3:[address] [facility] MCH 23.8(L) 27.0 - 32.0 pcg LAB HEMETOLOGY METHOD 07/22/2024 3:[address] [facility] MCHC 29.6(L) 32.0 - 37.0 g/dL LAB HEMETOLOGY METHOD 07/22/2024 3:[address] [facility] RDW 23.6(H) 11.0 - 15.0 % LAB HEMETOLOGY METHOD 07/22/2024 3:[address] [facility] Platelets 169 130 - 400 K/mcL LAB HEMETOLOGY METHOD 07/22/2024 3:[address] [facility] MPV 9.7 7.0 - 11.0 FL LAB HEMETOLOGY METHOD 07/22/2024 3:[address] [facility] NRBC 0.0 <1.0 % LAB HEMETOLOGY METHOD 07/22/2024 3:[address] [facility] NRBC Absolute 0.00 <0.10 K/mcL LAB HEMETOLOGY METHOD 07/22/2024 3:[address] [facility] Neutrophils Relative 95.2 % LAB HEMETOLOGY METHOD 07/22/2024 3:[address] [facility] Lymphocytes Relative 3.3 % LAB HEMETOLOGY METHOD 07/22/2024 3:[address] [facility] Monocytes Relative 0.7 % LAB HEMETOLOGY METHOD 07/22/2024 3:[address] [facility] Eosinophils Relative 0.0 % LAB HEMETOLOGY METHOD 07/22/2024 3:[address] [facility] Basophils Relative 0.1 % LAB HEMETOLOGY METHOD 07/22/2024 3:[address] [facility] Immature Granulocytes Relative 0.7 % LAB HEMETOLOGY METHOD 07/22/2024 3:[address] [facility] Neutrophils Absolute 9.13(H) 1.50 - 7.00 K/mcL LAB HEMETOLOGY METHOD 07/22/2024 3:[address] [facility] Lymphocytes Absolute 0.32(L) 1.00 - 5.00 K/mcL LAB HEMETOLOGY METHOD 07/22/2024 3:[address] [facility] Monocytes Absolute 0.07(L) 0.20 - 1.00 K/mcL LAB HEMETOLOGY METHOD 07/22/2024 3:32 AM EST [facility] Eosinophils Absolute 0.00 0.00 - 0.50 K/[facility] LAB HEMETOLOGY METHOD 07/22/2024 3:32 AM EST [facility] Basophils Absolute 0.01 0.00 - 0.20 K/mcL LAB HEMETOLOGY METHOD 07/22/2024 3:[address] [facility] Immature Granulocytes Absolute 0.07(H) 0.00 - 0.03 K/mcL LAB HEMETOLOGY METHOD 07/22/2024 3:[address] [facility] Blood Venous blood specimen / Unknown Venipuncture / Unknown 07/22/2024 3:11 AM EST 07/22/2024 3:23 AM EST Lencho Stuart MD LAB BLOOD ORDERABLES Final R esult [facility] [address] [place] [address], * (ABNORMAL) Basic metabolic panel (07/22/2024 3:11 AM EST) Sodium 132(L) 133 - 145 mmol/L LAB CHEMISTRY METHOD 07/22/2024 4:[address] [facility] Potassium 5.0 3.5 - 5.5 mmol/L LAB CHEMISTRY METHOD 07/22/2024 4:[address] [facility] Chloride 95(L) 96 - 110 mmol/L LAB CHEMISTRY METHOD 07/22/2024 4:[address] [facility] CO2 27 21 - 32 mmol/L LAB CHEMISTRY METHOD 07/22/2024 4:[address] [facility] Anion Gap 10 3 - 11 LAB CHEMISTRY METHOD 07/22/2024 4:[address] [facility] Glucose 264(H) 70 - 100 mg/dL LAB CHEMISTRY METHOD 07/22/2024 4:[address] [facility] BUN 40(H) 5 - 25 mg/dL LAB CHEMISTRY METHOD 07/22/2024 4:[address] [facility] Creatinine 2.87(H) 0.50 - 1.10 mg/dL LAB CHEMISTRY METHOD 07/22/2024 4:[address] [facility] eGFR 16(L) >=60 mL/min/1. 73m2 LAB CHEMISTRY METHOD 07/22/2024 4:[address] [facility] Comment:Calculation based on the??Chronic Kidney Disease Epidemiology Collaboration (CKD-EPI) equation refit??without adjustment for race. BUN/Creatinine Ratio 13.9 LAB CHEMISTRY METHOD 07/22/2024 4:[address] [facility] Calcium 7.4(L) 8.5 - 10.5 mg/dL LAB CHEMISTRY METHOD 07/22/2024 4:[address] [facility] Blood Venous blood specimen / Unknown Venipuncture / Unknown 07/22/2024 3:11 AM EST 07/22/2024 4:20 AM EST us Estdimas Stuart MD LAB BLOOD ORDERABLES Final R esult [facility] [address] [place] [address], * (ABNORMAL) Anti-Xa - Every 6 Hours (07/22/2024 3:09 AM EST) Heparin Anti-Xa 0.26(L) 0.30 - 0.70 I Unit/mL LAB COAGULATION METHOD 07/22/2024 3:[address] [facility] Blood Venous blood specimen / Unknown Venipuncture / Unknown 07/22/2024 3:09 AM EST 07/22/2024 3:23 AM EST Narrative [facility] - 07/22/2024 3:33 AM EST Therapeutic range listed is for Unfractionated Heparin. LMW Heparin therapeutic range: 0.50-1.20 IU/mL us Lencho Stuart MD LAB BLOOD ORDERABLES Final R esult [facility] [address] [place] [address], [place] [phone] * (ABNORMAL) POCT Glucose, blood (07/21/2024 8:10 PM EST) Glucose POCT 172(H) 70 - 100 mg/dL 07/21/2024 8:11 PM EST [facility] Blood Capillary blood specimen / Unknown 07/21/2024 8:10 PM EST 07/21/2024 8:12 PM EST Lencho Stuart MD LAB POINT OF CARE TE ST DOCKED DEVICE UNSOLICITED RESULTS Final Result Performing Organization Address City/[facility]/ZIP Co de Phone Number [facility] [address] [place] [address], [place] [phone] * (ABNORMAL) Heparin and low molecular weight anti Xa level (07/21/2024 8:02 PM EST) Heparin Anti-Xa 0.27(L) 0.30 - 0.70 I Unit/mL LAB COAGULATION METHOD 07/21/2024 8:37 PM EST [facility] Blood Venous blood specimen / Unknown Venipuncture / Unknown 07/21/2024 8:02 PM EST 07/21/2024 8:26 PM EST Narrative [facility] - 07/21/2024 8:37 PM EST Therapeutic range listed is for Unfractionated Heparin. LMW Heparin therapeutic range: 0.50-1.20 IU/mL us Lencho Stuart MD LAB BLOOD ORDERABLES Final R esult [facility] [address] [place] [address], [place] [phone] * (ABNORMAL) POCT Glucose, blood (07/21/2024 5:04 PM EST) Glucose POCT 175(H) 70 - 100 mg/dL 07/21/2024 5:05 PM EST [facility] Blood Capillary blood specimen / Unknown 07/21/2024 5:04 PM EST 07/21/2024 5:06 PM EST us Lencho Stuart MD LAB POINT OF CARE TE ST DOCKED DEVICE UNSOLICITED RESULTS Final Result Performing Organization Address [facility]/ZIP Co de Phone Number [facility] [address] [place] [address], [place] [phone] * POCT Glucose, blood (07/21/2024 1:57 PM EST) Glucose POCT 96 70 - 100 mg/dL 07/21/2024 1:58 PM EST [facility] Blood Capillary blood specimen / Unknown 07/21/2024 1:57 PM EST 07/21/2024 1:59 PM EST us Lencho Stuart MD LAB POINT OF CARE TE ST DOCKED DEVICE UNSOLICITED RESULTS Final Result [facility] [address] [place] [address], [place] [phone] * (ABNORMAL) Complete blood count (07/21/2024 8:55 AM EST) WBC 18.9(H) 4.8 - 10.8 K/[facility] HEMETOLOGY METHOD 07/21/2024 9:21 AM EST [facility] RBC 3.00(L) 3.80 - 4.80 M/mcL LAB HEMETOLOGY METHOD 07/21/2024 9:[address] [facility] Hemoglobin 7.3(L) 11.5 - 16.0 g/dL LAB HEMETOLOGY METHOD 07/21/2024 9:[address] [facility] Hematocrit 23.7(L) 35.0 - 47.0 % LAB HEMETOLOGY METHOD 07/21/2024 9:[address] [facility] MCV 80.3 79.0 - 98.0 FL LAB HEMETOLOGY METHOD 07/21/2024 9:[address] [facility] MCH 24.7(L) 27.0 - 32.0 pcg LAB HEMETOLOGY METHOD 07/21/2024 9:[address] [facility] MCHC 30.8(L) 32.0 - 37.0 g/dL LAB HEMETOLOGY METHOD 07/21/2024 9:[address] [facility] RDW 23.7(H) 11.0 - 15.0 % LAB HEMETOLOGY METHOD 07/21/2024 9:[address] [facility] Platelets 195 130 - 400 K/mcL LAB HEMETOLOGY METHOD 07/21/2024 9:[address] [facility] MPV 10.2 7.0 - 11.0 FL LAB HEMETOLOGY METHOD 07/21/2024 9:[address] [facility] NRBC 0.0 <1.0 % LAB HEMETOLOGY METHOD 07/21/2024 9:[address] [facility] NRBC Absolute 0.00 <0.10 K/mcL LAB HEMETOLOGY METHOD 07/21/2024 9:[address] [facility] Blood Venous blood specimen / Unknown Venipuncture / Unknown 07/21/2024 8:55 AM EST 07/21/2024 9:11 AM EST us Lencho Stuart MD LAB BLOOD ORDERABLES Final R esult [facility] [address] [place] [address], [place] [phone] * (ABNORMAL) Basic metabolic panel (07/21/2024 8:55 AM EST) Sodium 130(L) 133 - 145 mmol/L LAB CHEMISTRY METHOD 07/21/2024 9:50 AM EST [facility] Potassium 4.8 3.5 - 5.5 mmol/L LAB CHEMISTRY METHOD 07/21/2024 9:[address] [facility] Chloride 92(L) 96 - 110 mmol/L LAB CHEMISTRY METHOD 07/21/2024 9:[address] [facility] CO2 29 21 - 32 mmol/L LAB CHEMISTRY METHOD 07/21/2024 9:[address] [facility] Anion Gap 9 3 - 11 LAB CHEMISTRY METHOD 07/21/2024 9:[address] [facility] Glucose 142(H) 70 - 100 mg/dL LAB CHEMISTRY METHOD 07/21/2024 9:[address] [facility] BUN 63(H) 5 - 25 mg/dL LAB CHEMISTRY METHOD 07/21/2024 9:[address] [facility] Creatinine 5.05(H) 0.50 - 1.10 mg/dL LAB CHEMISTRY METHOD 07/21/2024 9:[address] [facility] eGFR 8(L) >=60 mL/min/1. 73m2 LAB CHEMISTRY METHOD 07/21/2024 9:[address] [facility] Comment:Calculation based on the??Chronic Kidney Disease Epidemiology Collaboration (CKD-EPI) equation refit??without adjustment for race. BUN/Creatinine Ratio 12.5 LAB CHEMISTRY METHOD 07/21/2024 9:50 AM EST [facility] Calcium 7.6(L) 8.5 - 10.5 mg/dL LAB CHEMISTRY METHOD 07/21/2024 9:50 AM EST [facility] Blood Venous blood specimen / Unknown Venipuncture / Unknown 07/21/2024 8:55 AM EST 07/21/2024 9:10 AM EST Lencho Stuart MD LAB BLOOD ORDERABLES Final R esult Performing Organization Address City/[facility]/ZIP Co de Phone Number [facility] [address] [place] [address], [place] [phone] * (ABNORMAL) POCT Glucose, blood (07/21/2024 8:03 AM EST) Glucose POCT 159(H) 70 - 100 mg/dL 07/21/2024 8:04 AM EST [facility] Blood Capillary blood specimen / Unknown 07/21/2024 8:03 AM EST 07/21/2024 8:05 AM EST us Lencho Stuart MD LAB POINT OF CARE TE ST DOCKED DEVICE UNSOLICITED RESULTS Final Result Performing Organization Address [facility] Co de Phone Number [facility] [address] [place] [address], [place] [phone] * SST tube (07/21/2024 5:41 AM EST) Extra Tube Hold for add-ons. 07/21/2024 9:01 AM EST [facility] Comment:Auto resulted. Blood Venous blood specimen / Unknown 07/21/2024 5:41 AM EST 07/21/2024 7:02 AM EST us Lencho Stuart MD LAB BLOOD ORDERABLES Final R esult [facility] [address] [place] [address], * (ABNORMAL) CBC - Every 3 Days (07/21/2024 5:12 AM EST) WBC 18.8(H) 4.8 - 10.8 K/mcL LAB HEMETOLOGY METHOD 07/21/2024 7:[address] [facility] RBC 2.90(L) 3.80 - 4.80 M/mcL LAB HEMETOLOGY METHOD 07/21/2024 7:[address] [facility] Hemoglobin 7.3(L) 11.5 - 16.0 g/dL LAB HEMETOLOGY METHOD 07/21/2024 7:[address] [facility] Hematocrit 23.6(L) 35.0 - 47.0 % LAB HEMETOLOGY METHOD 07/21/2024 7:[address] [facility] MCV 81.1 79.0 - 98.0 FL LAB HEMETOLOGY METHOD 07/21/2024 7:[address] [facility] MCH 25.1(L) 27.0 - 32.0 pcg LAB HEMETOLOGY METHOD 07/21/2024 7:[address] [facility] MCHC 30.9(L) 32.0 - 37.0 g/dL LAB HEMETOLOGY METHOD 07/21/2024 7:[address] [facility] RDW 23.7(H) 11.0 - 15.0 % LAB HEMETOLOGY METHOD 07/21/2024 7:[address] [facility] Platelets 200 130 - 400 K/mcL LAB HEMETOLOGY METHOD 07/21/2024 7:[address] [facility] MPV 10.5 7.0 - 11.0 FL LAB HEMETOLOGY METHOD 07/21/2024 7:[address] [facility] NRBC 0.0 <1.0 % LAB HEMETOLOGY METHOD 07/21/2024 7:22 AM EST [facility] NRBC Absolute 0.00 <0.10 K/mcL LAB HEMETOLOGY METHOD 07/21/2024 7:22 AM EST [facility] Blood Venous blood specimen / Unknown Venipuncture / Unknown 07/21/2024 5:12 AM EST 07/21/2024 6:58 AM EST us Lencho Stuart MD LAB BLOOD ORDERABLES Final R esult [facility] [address] [place] [address], [place] [phone] * (ABNORMAL) POCT Glucose, blood (07/21/2024 2:47 AM EST) Glucose POCT 144(H) 70 - 100 mg/dL 07/21/2024 2:48 AM EST [facility] Blood Capillary blood specimen / Unknown 07/21/2024 2:47 AM EST 07/21/2024 2:49 AM EST us Lencho Stuart MD LAB POINT OF CARE TE ST DOCKED DEVICE UNSOLICITED RESULTS Final Result [facility] [address] [place] [address], [place] [phone] * (ABNORMAL) POCT Glucose, blood (07/20/2024 8:11 PM EST) Glucose POCT 140(H) 70 - 100 mg/dL 07/20/2024 8:12 PM EST [facility] Blood Capillary blood specimen / Unknown 07/20/2024 8:11 PM EST 07/20/2024 8:13 PM EST us Lencho Stuart MD LAB POINT OF CARE TE ST DOCKED DEVICE UNSOLICITED RESULTS Final Result [facility] [address] [place] [address], [place] [phone] * (ABNORMAL) Anti-Xa - Every 6 Hours (07/20/2024 7:45 PM EST) Pathologist [facility] Heparin Anti-Xa <0.04(L) 0.30 - 0.70 I Unit/mL LAB COAGULATION METHOD 07/20/2024 9:02 PM EST [facility] Blood Venous blood specimen / Unknown Venipuncture / Unknown 07/20/2024 7:45 PM EST 07/20/2024 8:01 PM EST Narrative [facility] - 07/20/2024 9:02 PM EST Therapeutic range listed is for Unfractionated Heparin. LMW Heparin therapeutic range: 0.50-1.20 IU/mL us Lencho Stuart MD LAB BLOOD ORDERABLES Final R esult Performing Organization Address City/[facility]/ZIP Co de Phone Number [facility] [address] [place] [address], [place] [phone] * (ABNORMAL) POCT Glucose, blood (07/20/2024 4:21 PM EST) [facility] Glucose POCT 167(H) 70 - 100 mg/dL 07/20/2024 4:23 PM EST [facility] Blood Capillary blood specimen / Unknown 07/20/2024 4:21 PM EST 07/20/2024 4:24 PM EST us Lencho Stuart MD LAB POINT OF CARE TE ST DOCKED DEVICE UNSOLICITED RESULTS Final Result [facility] [address] [place] [address], [place] [phone] * Activated Partial Thromboplastin Time - STAT (07/20/2024 2:30 PM EST) aPTT 30.0 24.1 - 39.3 sec LAB COAGULATION METHOD 07/20/2024 3:06 PM EST [facility] Blood Venous blood specimen / Unknown Venipuncture / Unknown 07/20/2024 2:30 PM EST 07/20/2024 2:52 PM EST us Lencho Stuart MD LAB BLOOD ORDERABLES Final R esult [facility] [address] [place] [address], [place] [phone] * (ABNORMAL) Prothrombin Time with INR - STAT (07/20/2024 2:30 PM EST) [facility] Protime 17.6(H) 10.6 - 13.9 sec LAB COAGULATION METHOD 07/20/2024 3:06 PM EST [facility] INR 1.4 LAB COAGULATION METHOD 07/20/2024 3:06 PM EST [facility] Blood Venous blood specimen / Unknown Venipuncture / Unknown 07/20/2024 2:30 PM EST 07/20/2024 2:52 PM EST us Lencho Stuart MD LAB BLOOD ORDERABLES Final R esult [facility] [address] [place] [address], [place] [phone] * (ABNORMAL) POCT Glucose, blood (07/20/2024 11:23 AM EST) [facility] Glucose POCT 139(H) 70 - 100 mg/dL 07/20/2024 11:24 AM EST [facility] Blood Capillary blood specimen / Unknown 07/20/2024 11:23 AM EST 07/20/2024 11:26 AM EST Lencho Stuart MD LAB POINT OF CARE TE ST DOCKED DEVICE UNSOLICITED RESULTS Final Result Performing Organization Address City/[facility]/ZIP Co de Phone Number [facility] [address] [place] [address], [place] [phone] * (ABNORMAL) POCT Glucose, blood (07/20/2024 8:20 AM EST) [facility] Glucose POCT 132(H) 70 - 100 mg/dL 07/20/2024 8:20 AM EST [facility] Blood Capillary blood specimen / Unknown 07/20/2024 8:20 AM EST 07/20/2024 8:21 AM EST Lencho Stuart MD LAB POINT OF CARE TE ST DOCKED DEVICE UNSOLICITED RESULTS Final Result Performing Organization Address City/[facility]/ZIP Co de Phone Number [facility] [address] [place] [address], [place] [phone] * (ABNORMAL) CBC auto differential (07/20/2024 5:46 AM EST) [facility] WBC 20.9(H) 4.8 - 10.8 K/[facility] LAB HEMETOLOGY METHOD 07/20/2024 7:[address] [facility] RBC 3.00(L) 3.80 - 4.80 M/[facility] LAB HEMETOLOGY METHOD 07/20/2024 7:[address] [facility] Hemoglobin 7.3(L) 11.5 - 16.0 g/dL LAB HEMETOLOGY METHOD 07/20/2024 7:[address] [facility] Hematocrit 23.6(L) 35.0 - 47.0 % LAB HEMETOLOGY METHOD 07/20/2024 7:[address] [facility] MCV 77.9(L) 79.0 - 98.0 FL LAB HEMETOLOGY METHOD 07/20/2024 7:[address] [facility] MCH 24.1(L) 27.0 - 32.0 pcg LAB HEMETOLOGY METHOD 07/20/2024 7:[address] [facility] MCHC 30.9(L) 32.0 - 37.0 g/dL LAB HEMETOLOGY METHOD 07/20/2024 7:[address] [facility] RDW 23.9(H) 11.0 - 15.0 % LAB HEMETOLOGY METHOD 07/20/2024 7:[address] [facility] Platelets 217 130 - 400 K/mcL LAB HEMETOLOGY METHOD 07/20/2024 7:[address] [facility] MPV 9.8 7.0 - 11.0 FL LAB HEMETOLOGY METHOD 07/20/2024 7:[address] [facility] NRBC 0.0 <1.0 % LAB HEMETOLOGY METHOD 07/20/2024 7:[address] [facility] NRBC Absolute 0.00 <0.10 K/mcL LAB HEMETOLOGY METHOD 07/20/2024 7:[address] [facility] Neutrophils Relative 86.5 % LAB HEMETOLOGY METHOD 07/20/2024 7:[address] [facility] Lymphocytes Relative 3.8 % LAB HEMETOLOGY METHOD 07/20/2024 7:[address] [facility] Monocytes Relative 5.5 % LAB HEMETOLOGY METHOD 07/20/2024 7:[address] [facility] Eosinophils Relative 2.7 % LAB HEMETOLOGY METHOD 07/20/2024 7:[address] [facility] Basophils Relative 0.2 % LAB HEMETOLOGY METHOD 07/20/2024 7:[address] [facility] Immature Granulocytes Relative 1.3 % LAB HEMETOLOGY METHOD 07/20/2024 7:[address] [facility] Neutrophils Absolute 18.10(H) 1.50 - 7.00 K/mcL LAB HEMETOLOGY METHOD 07/20/2024 7:[address] [facility] Lymphocytes Absolute 0.80(L) 1.00 - 5.00 K/mcL LAB HEMETOLOGY METHOD 07/20/2024 7:[address] [facility] Monocytes Absolute 1.16(H) 0.20 - 1.00 K/mcL LAB HEMETOLOGY METHOD 07/20/2024 7:[address] [facility] Eosinophils Absolute 0.56(H) 0.00 - 0.50 K/mcL LAB HEMETOLOGY METHOD 07/20/2024 7:[address] [facility] Basophils Absolute 0.04 0.00 - 0.20 K/mcL LAB HEMETOLOGY METHOD 07/20/2024 7:[address] [facility] Immature Granulocytes Absolute 0.27(H) 0.00 - 0.03 K/mcL LAB HEMETOLOGY METHOD 07/20/2024 7:[address] [facility] Blood Venous blood specimen / Unknown Venipuncture / Unknown 07/20/2024 5:46 AM EST 07/20/2024 6:38 AM EST [facility] BLOOD ORDERABLES Final R esult [facility] [address] [place] [address], * (ABNORMAL) CBC - Every 3 Days (07/20/2024 5:46 AM EST) WBC 20.9(H) 4.8 - 10.8 K/mcL LAB HEMETOLOGY METHOD 07/20/2024 7:07 AM EST [facility] RBC 3.00(L) 3.80 - 4.80 M/mcL LAB HEMETOLOGY METHOD 07/20/2024 7:[address] [facility] Hemoglobin 7.3(L) 11.5 - 16.0 g/dL LAB HEMETOLOGY METHOD 07/20/2024 7:[address] [facility] Hematocrit 23.6(L) 35.0 - 47.0 % LAB HEMETOLOGY METHOD 07/20/2024 7:[address] [facility] LAB MCV 77.9(L) 79.0 - 98.0 FL LAB HEMETOLOGY METHOD 07/20/2024 7:[address] [facility] MCH 24.1(L) 27.0 - 32.0 pcg LAB HEMETOLOGY METHOD 07/20/2024 7:[address] [facility] MCHC 30.9(L) 32.0 - 37.0 g/dL LAB HEMETOLOGY METHOD 07/20/2024 7:[address] [facility] LAB RDW 23.9(H) 11.0 - 15.0 % LAB HEMETOLOGY METHOD 07/20/2024 7:[address] [facility] Platelets 217 130 - 400 K/mcL LAB HEMETOLOGY METHOD 07/20/2024 7:[address] [facility] LAB MPV 9.8 7.0 - 11.0 FL LAB HEMETOLOGY METHOD 07/20/2024 7:[address] [facility] NRBC 0.0 <1.0 % LAB HEMETOLOGY METHOD 07/20/2024 7:[address] [facility] NRBC Absolute 0.00 <0.10 K/mcL LAB HEMETOLOGY METHOD 07/20/2024 7:[address] [facility] Blood Venous blood specimen / Unknown Venipuncture / Unknown 07/20/2024 5:46 AM EST 07/20/2024 6:38 AM EST us Kwesi Guido MD LAB BLOOD ORDERABLES F inal Result Performing Organization Address City/[facility]/ZIP Co de Phone Number [facility] [address] [place] [address], [place] [phone] * Heparin and low molecular weight anti Xa level (07/20/2024 5:46 AM EST) [facility] Heparin Anti-Xa 0.36 0.30 - 0.70 I Unit/mL LAB COAGULATION METHOD 07/20/2024 7:15 AM EST [facility] Blood Venous blood specimen / Unknown Venipuncture / Unknown 07/20/2024 5:46 AM EST 07/20/2024 6:40 AM EST Narrative [facility] - 07/20/2024 7:15 AM EST Therapeutic range listed is for Unfractionated Heparin. LMW Heparin therapeutic range: 0.50-1.20 IU/mL Lencho Stuart MD LAB BLOOD ORDERABLES Final R esult Performing Organization Address City/[facility]/ZIP Co de Phone Number [facility] [address] [place] [address], [place] [phone] * (ABNORMAL) Basic metabolic panel (07/20/2024 5:46 AM EST) [facility] Sodium 132(L) 133 - 145 mmol/L LAB CHEMISTRY METHOD 07/20/2024 8:03 AM EST [facility] Potassium 4.2 3.5 - 5.5 mmol/L LAB CHEMISTRY METHOD 07/20/2024 8:03 AM EST [facility] Chloride 95(L) 96 - 110 mmol/L LAB CHEMISTRY METHOD 07/20/2024 8:03 AM EST [facility] CO2 29 21 - 32 mmol/L LAB CHEMISTRY METHOD 07/20/2024 8:03 AM EST [facility] Anion Gap 8 3 - 11 LAB CHEMISTRY METHOD 07/20/2024 8:[address] [facility] Glucose 113(H) 70 - 100 mg/dL LAB CHEMISTRY METHOD 07/20/2024 8:[address] [facility] BUN 41(H) 5 - 25 mg/dL LAB CHEMISTRY METHOD 07/20/2024 8:[address] [facility] Creatinine 3.68(H) 0.50 - 1.10 mg/dL LAB CHEMISTRY METHOD 07/20/2024 8:[address] [facility] eGFR 12(L) >=60 mL/min/1. 73m2 LAB CHEMISTRY METHOD 07/20/2024 8:[address] [facility] Comment:Calculation based on the??Chronic Kidney Disease Epidemiology Collaboration (CKD-EPI) equation refit??without adjustment for race. BUN/Creatinine Ratio 11.1 LAB CHEMISTRY METHOD 07/20/2024 8:[address] [facility] Calcium 7.3(L) 8.5 - 10.5 mg/dL LAB CHEMISTRY METHOD 07/20/2024 8:[address] [facility] Blood Venous blood specimen / Unknown Venipuncture / Unknown 07/20/2024 5:46 AM EST 07/20/2024 6:38 AM EST Lencho Stuart MD LAB BLOOD ORDERABLES Final R esult [facility] [address] [place] [address], * (ABNORMAL) POCT Glucose, blood (07/19/2024 8:18 PM EST) Glucose POCT 146(H) 70 - 100 mg/dL 07/19/2024 8:[address] [facility] Blood Capillary blood specimen / Unknown 07/19/2024 8:18 PM EST 07/19/2024 8:19 PM EST us Lencho Stuart MD LAB POINT OF CARE TE ST DOCKED DEVICE UNSOLICITED RESULTS Final Result Performing Organization Address City/[facility]/ZIP Co de Phone Number [facility] [address] [place] [address], [place] [phone] * (ABNORMAL) POCT Glucose, blood (07/19/2024 7:29 PM EST) Glucose POCT 152(H) 70 - 100 mg/dL 07/19/2024 7:30 PM EST [facility] Blood Capillary blood specimen / Unknown 07/19/2024 7:29 PM EST 07/19/2024 7:31 PM EST us Lencho Stuart MD LAB POINT OF CARE TE ST DOCKED DEVICE UNSOLICITED RESULTS Final Result Performing Organization Address [facility]/ZIP Co de Phone Number [facility] [address] [place] [address], [place] [phone] * (ABNORMAL) POCT Glucose, blood (07/19/2024 4:01 PM EST) Glucose POCT 139(H) 70 - 100 mg/dL 07/19/2024 4:02 PM EST [facility] Blood Capillary blood specimen / Unknown 07/19/2024 4:01 PM EST 07/19/2024 4:03 PM EST us Lencho Stuart MD LAB POINT OF CARE TE ST DOCKED DEVICE UNSOLICITED RESULTS Final Result Performing Organization Address City/[facility]/ZIP Co de Phone Number [facility] [address] [place] [address], [place] [phone] * (ABNORMAL) Hemoglobin and hematocrit (07/19/2024 2:31 PM EST) Hemoglobin 7.6(L) 11.5 - 16.0 g/dL LAB HEMETOLOGY METHOD 07/19/2024 3:11 PM EST [facility] Hematocrit 23.8(L) 35.0 - 47.0 % LAB HEMETOLOGY METHOD 07/19/2024 3:11 PM EST [facility] Blood Venous blood specimen / Unknown Venipuncture / Unknown 07/19/2024 2:31 PM EST 07/19/2024 3:05 PM EST Lencho Stuart MD LAB BLOOD ORDERABLES Final R esult Performing Organization Address City/[facility]/ZIP Co de Phone Number [facility] [address] [place] [address], [place] [phone] * Creatinine, urine, random (07/19/2024 12:01 PM EST) Creatinine, Urine 41.0 mg/dL LAB CHEMISTRY METHOD 07/19/2024 1:[address] [facility] Urine Urine specimen obtained by clean catch procedure / Unknown Non-blood Collection / Unknown 07/19/2024 12:01 PM EST 07/19/2024 12:30 PM EST Miguel Quiles MD LAB URINE ORDERABLES Final Res ult Performing Organization Address City/[facility]/ZIP Co de Phone Number [facility] [address] [place] [address], [place] [phone] * (ABNORMAL) Microalbumin creatinine urine ratio (07/19/2024 [...] ORDERABLES Final Res ult Performing Organization Address [facility]/ZIP Co de Phone Number [facility] [address] [place] [address], [place] [phone] * (ABNORMAL) POCT Glucose, blood (07/19/2024 11:32 AM EST) Glucose POCT 132(H) 70 - 100 mg/dL 07/19/2024 11:33 AM EST [facility] Blood Capillary blood specimen / Unknown 07/19/2024 11:32 AM EST 07/19/2024 11:34 AM EST us Lencho Stuart MD LAB POINT OF CARE TE ST DOCKED DEVICE UNSOLICITED RESULTS Final Result Performing Organization Address [facility]/ZIP Co de Phone Number [facility] [address] [place] [address], [place] [phone] * (ABNORMAL) POCT Glucose, blood (07/19/2024 9:07 AM EST) Glucose POCT 117(H) 70 - 100 mg/dL 07/19/2024 9:07 AM EST [facility] Blood Capillary blood specimen / Unknown 07/19/2024 9:07 AM EST 07/19/2024 9:09 AM EST us Lencho Stuart MD LAB POINT OF CARE TE ST DOCKED DEVICE UNSOLICITED RESULTS Final Result Performing Organization Address City/[facility]/ZIP Co de Phone Number [facility] [address] [place] [address], * (ABNORMAL) CBC auto differential (07/19/2024 7:55 AM EST) [facility] Signature WBC 25.0(H) 4.8 - 10.8 K/mcL LAB HEMETOLOGY METHOD 07/19/2024 8:[address] [facility] RBC 2.80(L) 3.80 - 4.80 M/mcL LAB HEMETOLOGY METHOD 07/19/2024 8:[address] [facility] Hemoglobin 7.0(L) 11.5 - 16.0 g/dL LAB HEMETOLOGY METHOD 07/19/2024 8:[address] [facility] Hematocrit 22.2(L) 35.0 - 47.0 % LAB HEMETOLOGY METHOD 07/19/2024 8:[address] [facility] LAB MCV 79.0 79.0 - 98.0 FL LAB HEMETOLOGY METHOD 07/19/2024 8:[address] [facility] MCH 24.9(L) 27.0 - 32.0 pcg LAB HEMETOLOGY METHOD 07/19/2024 8:[address] [facility] MCHC 31.5(L) 32.0 - 37.0 g/dL LAB HEMETOLOGY METHOD 07/19/2024 8:[address] [facility] RDW 23.9(H) 11.0 - 15.0 % LAB HEMETOLOGY METHOD 07/19/2024 8:[address] [facility] Platelets 218 130 - 400 K/mcL LAB HEMETOLOGY METHOD 07/19/2024 8:[address] [facility] MPV 10.6 7.0 - 11.0 FL LAB HEMETOLOGY METHOD 07/19/2024 8:[address] [facility] NRBC 0.0 <1.0 % LAB HEMETOLOGY METHOD 07/19/2024 8:[address] [facility] NRBC Absolute 0.00 <0.10 K/mcL LAB HEMETOLOGY METHOD 07/19/2024 8:[address] [facility] Neutrophils Relative 87.6 % LAB HEMETOLOGY METHOD 07/19/2024 8:[address] [facility] Comment:This is an appended report. These results have been appended to a previously preliminary verified report. Lymphocytes Relative 3.0 % LAB HEMETOLOGY METHOD 07/19/2024 8:[address] [facility] Comment:This is an appended report. These results have been appended to a previously preliminary verified report. Monocytes Relative 4.6 % LAB HEMETOLOGY METHOD 07/19/2024 8:[address] [facility] Comment:This is an appended report. These results have been appended to a previously preliminary verified report. Eosinophils Relative 3.0 % LAB HEMETOLOGY METHOD 07/19/2024 8:[address] [facility] Comment:This is an appended report. These results have been appended to a previously preliminary verified report. Basophils Relative 0.2 % LAB HEMETOLOGY METHOD 07/19/2024 8:[address] [facility] Comment:This is an appended report. These results have been appended to a previously preliminary verified report. Immature Granulocytes Relative 1.6 % LAB HEMETOLOGY METHOD 07/19/2024 8:[address] [facility] Comment:This is an appended report. These results have been appended to a previously preliminary verified report. Neutrophils Absolute 21.89(H) 1.50 - 7.00 K/mcL LAB HEMETOLOGY METHOD 07/19/2024 8:[address] [facility] Comment:This is an appended report. These results have been appended to a previously preliminary verified report. Lymphocytes Absolute 0.76(L) 1.00 - 5.00 K/mcL LAB HEMETOLOGY METHOD 07/19/2024 8:36 AM EST [facility] Comment:This is an appended report. These results have been appended to a previously preliminary verified report. Monocytes Absolute 1.14(H) 0.20 - 1.00 K/mcL LAB HEMETOLOGY METHOD 07/19/2024 8:36 AM EST [facility] Comment:This is an appended report. These results have been appended to a previously preliminary verified report. Eosinophils Absolute 0.76(H) 0.00 - 0.50 K/[facility] LAB HEMETOLOGY METHOD 07/19/2024 8:36 AM EST [facility] Comment:This is an appended report. These results have been appended to a previously preliminary verified report. Basophils Absolute 0.05 0.00 - 0.20 K/[facility] 8:36 AM EST [facility] Comment:This is an appended report. These results have been appended to a previously preliminary verified report. Immature Granulocytes Absolute 0.40(H) 0.00 - 0.03 K/[facility] 07/19/2024 8:36 AM EST [facility] Comment:This is an appended report. These results have been appended to a previously preliminary verified report. Blood Venous blood specimen / Unknown Venipuncture / Unknown 07/19/2024 7:55 AM EST 07/19/2024 7:55 AM EST us Estate Sade GUERRERO LAB BLOOD ORDERABLES Final R esult [facility] [address] [place] [address], * (ABNORMAL) Parathyroid hormone related protein (07/19/2024 7:55 AM EST) PTH-related Protein (PTHrP) 24(H) 11 - 20 pg/mL 07/26/2024 4:37 PM EST [facility] Comment: This is a C-terminal PTH-RP assay. PTH-RP is useful in the differential diagnosis of hypercalcemia and levels may be elevated in patients with tumor-associated hypercalcemia. Elevated results may also be observed in patients with renal disease. This test was developed and its analytical performance characteristics have been determined by [employer]. It has not been cleared or approved by FDA. This assay has been validated pursuant to the CLIA regulations and is used for clinical purposes. Test Performed at: [employer] [facility] [address] [place], [place] ??[id number] ? I Bethany GUERRERO, PhD, NINA Blood Venous blood specimen / Unknown Venipuncture / Unknown 07/19/2024 7:55 AM EST 07/19/2024 7:55 AM EST us Jesus Manuel HEDRICK LAB BLOOD ORDERABLES Final Resu lt Performing Organization Address City/[facility]/ZIP Co de Phone Number [facility] [address] [place] [address] * (ABNORMAL) Anti-neutrophilic cytoplasmic antibody (07/19/2024 6:52 [...] Res ult [facility] [address] [place] [address], * Anti-Xa - Every 6 Hours (07/19/2024 6:52 AM EST) Heparin Anti-Xa 0.37 0.30 - 0.70 I Unit/mL LAB COAGULATION METHOD 07/19/2024 7:38 AM EST [facility] Blood Venous blood specimen / Unknown Venipuncture / Unknown 07/19/2024 6:52 AM EST 07/19/2024 7:21 AM EST [facility] - 07/19/2024 7:38 AM EST Therapeutic range listed is for Unfractionated Heparin. LMW Heparin therapeutic range: 0.50-1.20 IU/mL Estdimas Stuart MD LAB BLOOD ORDERABLES Final R esult Performing Organization Address [facility] Co de Phone Number [facility] [address] [place] [address], * (ABNORMAL) Basic metabolic panel (07/19/2024 6:52 AM EST) [facility] Sodium 128(L) 133 - 145 mmol/L LAB CHEMISTRY METHOD 07/19/2024 8:[address] [facility] Potassium 4.9 3.5 - 5.5 mmol/L LAB CHEMISTRY METHOD 07/19/2024 8:[address] [facility] Chloride 93(L) 96 - 110 mmol/L LAB CHEMISTRY METHOD 07/19/2024 8:[address] [facility] CO2 28 21 - 32 mmol/L LAB CHEMISTRY METHOD 07/19/2024 8:[address] [facility] Anion Gap 7 3 - 11 LAB CHEMISTRY METHOD 07/19/2024 8:[address] [facility] Glucose 170(H) 70 - 100 mg/dL LAB CHEMISTRY METHOD 07/19/2024 8:56 AM EST [facility] BUN 83(H) 5 - 25 mg/dL LAB CHEMISTRY METHOD 07/19/2024 8:[address] [facility] Creatinine 5.96(H) 0.50 - 1.10 mg/dL LAB CHEMISTRY METHOD 07/19/2024 8:56 AM EST [facility] eGFR 7(L) >=60 mL/min/1. 73m2 LAB CHEMISTRY METHOD 07/19/2024 8:56 AM EST [facility] Comment:Calculation based on the??Chronic Kidney Disease Epidemiology Collaboration (CKD-EPI) equation refit??without adjustment for race. BUN/Creatinine Ratio 13.9 LAB CHEMISTRY METHOD 07/19/2024 8:[address] [facility] Calcium 7.7(L) 8.5 - 10.5 mg/dL LAB CHEMISTRY METHOD 07/19/2024 8:[address] [facility] Blood Venous blood specimen / Unknown Venipuncture / Unknown 07/19/2024 6:52 AM EST 07/19/2024 7:21 AM EST us Lencho Stuart MD LAB BLOOD ORDERABLES Final R esult [facility] [address] [place] [address], * (ABNORMAL) POCT Glucose, blood (07/18/2024 8:27 PM EST) Glucose POCT 193(H) 70 - 100 mg/dL 07/18/2024 8:27 PM EST [facility] Blood Capillary blood specimen / Unknown 07/18/2024 8:27 PM EST 07/18/2024 8:28 PM EST us Lencho Stuart MD LAB POINT OF CARE TE ST DOCKED DEVICE UNSOLICITED RESULTS Final Result Performing Organization Address City/[facility]/ZIP Co de Phone Number [facility] [address] [place] [address], [place] [phone] * Anti-Xa - Every 6 Hours (07/18/2024 6:07 PM EST) Heparin Anti-Xa 0.42 0.30 - 0.70 I Unit/mL LAB COAGULATION METHOD 07/18/2024 7:21 PM EST [facility] Blood Venous blood specimen / Unknown Venipuncture / Unknown 07/18/2024 6:07 PM EST 07/18/2024 7:00 PM EST Narrative [facility] - 07/18/2024 7:21 PM EST Therapeutic range listed is for Unfractionated Heparin. LMW Heparin therapeutic range: 0.50-1.20 IU/mL us Kwesi Guido MD LAB BLOOD ORDERABLES F inal Result Performing Organization Address [facility]/ZIP Co de Phone Number [facility] [address] [place] [address], [place] [phone] * (ABNORMAL) POCT Glucose, blood (07/18/2024 4:00 PM EST) Glucose POCT 210(H) 70 - 100 mg/dL 07/18/2024 4:01 PM EST [facility] Blood Capillary blood specimen / Unknown 07/18/2024 4:00 PM EST 07/18/2024 4:02 PM EST Lencho Stuart MD LAB POINT OF CARE TE ST DOCKED DEVICE UNSOLICITED RESULTS Final Result Performing Organization Address City/[facility]/ZIP Co de Phone Number [facility] [address] [place] [address], [place] [phone] * Anti-Xa - Every 6 Hours (07/18/2024 12:43 PM EST) Heparin Anti-Xa 0.39 0.30 - 0.70 I Unit/mL LAB COAGULATION METHOD 07/18/2024 1:15 PM EST [facility] Blood Venous blood specimen / Unknown Venipuncture / Unknown 07/18/2024 12:43 PM EST 07/18/2024 12:49 PM EST Narrative [facility] - 07/18/2024 1:15 PM EST Therapeutic range listed is for Unfractionated Heparin. LMW Heparin therapeutic range: 0.50-1.20 IU/mL Kwesi Guido MD LAB BLOOD ORDERABLES F inal Result [facility] [address] [place] [address], [place] [phone] * (ABNORMAL) POCT Glucose, blood (07/18/2024 11:17 AM EST) Glucose POCT 244(H) 70 - 100 mg/dL 07/18/2024 11:19 AM EST [facility] Blood Capillary blood specimen / Unknown 07/18/2024 11:17 AM EST 07/18/2024 11:21 AM EST Lencho Stuart MD LAB POINT OF CARE TE ST DOCKED DEVICE UNSOLICITED RESULTS Final Result [facility] [address] [place] [address], [place] [phone] * (ABNORMAL) POCT Glucose, blood (07/18/2024 7:54 AM EST) Glucose POCT 219(H) 70 - 100 mg/dL 07/18/2024 7:54 AM EST [facility] Blood Capillary blood specimen / Unknown 07/18/2024 7:54 AM EST 07/18/2024 7:56 AM EST Lencho Stuart MD LAB POINT OF CARE TE ST DOCKED DEVICE UNSOLICITED RESULTS Final Result Performing Organization Address [facility]/ZIP Co de Phone Number [facility] [address] [place] [address], [place] [phone] * Robertson urine culture tube (07/18/2024 6:10 AM EST) Pathologist [facility] Extra Tube Hold for add-ons. 07/18/2024 8:01 AM EST [facility] Comment:Auto resulted. Urine Urine specimen obtained by clean catch procedure / Unknown 07/18/2024 6:10 AM EST 07/18/2024 6:37 AM EST Lencho Stuart MD LAB URINE ORDERABLES Final R esult Performing Organization Address City/[facility]/ZIP Co de Phone Number [facility] [address] [place] [address], [place] [phone] * (ABNORMAL) Urinalysis microscopic only (07/18/2024 6:09 AM EST) Pathologist [facility] RBC, Urine 10(H) 0 - 4 /HPF 07/18/2024 7:[address] [facility] WBC, Urine >100(H) 0 - 4 /HPF 07/18/2024 7:[address] [facility] Squamous Epithelial, Urine 10 0 - 60 /LPF 07/18/2024 7:[address] [facility] Non-Squamous Epithelial, Urine 2-5 Transitional epithelial cells. /LPF 07/18/2024 7:[address] [facility] Bacteria, Urine Many(A) Negative /HPF 07/18/2024 7:[address] [facility] Other Casts, Urine Rare Coarse Granular casts. /LPF 07/18/2024 7:53 AM EST [facility] Urine Indwelling urinary catheter / Unknown Non-blood Collection / Unknown 07/18/2024 6:09 AM EST 07/18/2024 6:36 AM EST us Kwesi Guido MD LAB URINE ORDERABLES F inal Result Performing Organization Address City/[facility]/ZIP Co de Phone Number [facility] [address] [place] [address], [place] [phone] * Anti-Xa - Every 6 Hours (07/18/2024 6:07 AM EST) Heparin Anti-Xa 0.34 0.30 - 0.70 I Unit/mL LAB COAGULATION METHOD 07/18/2024 7:02 AM EST [facility] Blood Venous blood specimen / Unknown 07/18/2024 6:07 AM EST 07/18/2024 6:34 AM EST Narrative [facility] - 07/18/2024 7:02 AM EST Therapeutic range listed is for Unfractionated Heparin. LMW Heparin therapeutic range: 0.50-1.20 IU/mL us Kwesi Guido MD LAB BLOOD ORDERABLES F inal Result Performing Organization Address City/[facility]/ZIP Co de Phone Number [facility] [address] [place] [address], [place] [phone] * (ABNORMAL) CBC auto differential (07/18/2024 6:07 AM EST) WBC 25.5(H) 4.8 - 10.8 K/mcL LAB HEMETOLOGY METHOD 07/18/2024 7:23 AM EST [facility] RBC 3.20(L) 3.80 - 4.80 M/mcL LAB HEMETOLOGY METHOD 07/18/2024 7:23 AM EST [facility] Hemoglobin 7.8(L) 11.5 - 16.0 g/dL LAB HEMETOLOGY METHOD 07/18/2024 7:[address] [facility] Hematocrit 24.9(L) 35.0 - 47.0 % LAB HEMETOLOGY METHOD 07/18/2024 7:[address] [facility] MCV 77.6(L) 79.0 - 98.0 FL LAB HEMETOLOGY METHOD 07/18/2024 7:[address] [facility] MCH 24.3(L) 27.0 - 32.0 pcg LAB HEMETOLOGY METHOD 07/18/2024 7:[address] [facility] MCHC 31.3(L) 32.0 - 37.0 g/dL LAB HEMETOLOGY METHOD 07/18/2024 7:[address] [facility] RDW 24.1(H) 11.0 - 15.0 % LAB HEMETOLOGY METHOD 07/18/2024 7:[address] [facility] Platelets 242 130 - 400 K/mcL LAB HEMETOLOGY METHOD 07/18/2024 7:[address] [facility] MPV 9.6 7.0 - 11.0 FL LAB HEMETOLOGY METHOD 07/18/2024 7:[address] [facility] NRBC 0.0 <1.0 % LAB HEMETOLOGY METHOD 07/18/2024 7:[address] [facility] NRBC Absolute 0.00 <0.10 K/mcL LAB HEMETOLOGY METHOD 07/18/2024 7:[address] [facility] Neutrophils Relative 89.3 % LAB HEMETOLOGY METHOD 07/18/2024 7:[address] [facility] Comment:This is an appended report. These results have been appended to a previously preliminary verified report. Lymphocytes Relative 2.8 % LAB HEMETOLOGY METHOD 07/18/2024 7:[address] [facility] Comment:This is an appended report. These results have been appended to a previously preliminary verified report. Monocytes Relative 4.2 % LAB HEMETOLOGY METHOD 07/18/2024 7:[address] [facility] Comment:This is an appended report. These results have been appended to a previously preliminary verified report. Eosinophils Relative 1.9 % LAB HEMETOLOGY METHOD 07/18/2024 7:[address] [facility] Comment:This is an appended report. These results have been appended to a previously preliminary verified report. Basophils Relative 0.2 % LAB HEMETOLOGY METHOD 07/18/2024 7:[address] [facility] Comment:This is an appended report. These results have been appended to a previously preliminary verified report. Immature Granulocytes Relative 1.6 % LAB HEMETOLOGY METHOD 07/18/2024 7:[address] [facility] Comment:This is an appended report. These results have been appended to a previously preliminary verified report. Neutrophils Absolute 22.74(H) 1.50 - 7.00 K/mcL LAB HEMETOLOGY METHOD 07/18/2024 7:[address] [facility] Comment:This is an appended report. These results have been appended to a previously preliminary verified report. Lymphocytes Absolute 0.72(L) 1.00 - 5.00 K/mcL LAB HEMETOLOGY METHOD 07/18/2024 7:[address] [facility] Comment:This is an appended report. These results have been appended to a previously preliminary verified report. Monocytes Absolute 1.06(H) 0.20 - 1.00 K/mcL LAB HEMETOLOGY METHOD 07/18/2024 7:[address] [facility] Comment:This is an appended report. These results have been appended to a previously preliminary verified report. Eosinophils Absolute 0.49 0.00 - 0.50 K/mcL LAB HEMETOLOGY METHOD 07/18/2024 7:[address] [facility] Comment:This is an appended report. These results have been appended to a previously preliminary verified report. Basophils Absolute 0.04 0.00 - 0.20 K/mcL LAB HEMETOLOGY METHOD 07/18/2024 7:23 AM EST [facility] Comment:This is an appended report. These results have been appended to a previously preliminary verified report. Immature Granulocytes Absolute 0.41(H) 0.00 - 0.03 K/mcL LAB HEMETOLOGY METHOD 07/18/2024 7:23 AM EST [facility] Comment:This is an appended report. These results have been appended to a previously preliminary verified report. Blood Venous blood specimen / Unknown Venipuncture / Unknown 07/18/2024 6:07 AM EST 07/18/2024 7:16 AM EST us Kwesi Guido MD LAB BLOOD ORDERABLES F inal Result [facility] [address] [place] [address], [place] [phone] * (ABNORMAL) Calcium, ionized (07/18/2024 6:07 AM EST) Calcium Ionized 4.28(L) 4.50 - 5.30 mg/dL 07/18/2024 6:46 AM EST [facility] Blood Venous blood specimen / Unknown 07/18/2024 6:07 AM EST 07/18/2024 6:33 AM EST us Kwesi Guido MD LAB BLOOD ORDERABLES F inal Result [facility] [address] [place] [address], [place] [phone] * (ABNORMAL) Basic metabolic panel (07/18/2024 6:07 AM EST) Sodium 132(L) 133 - 145 mmol/L LAB CHEMISTRY METHOD 07/18/2024 7:[address] [facility] Potassium 4.4 3.5 - 5.5 mmol/L LAB CHEMISTRY METHOD 07/18/2024 7:[address] [facility] Chloride 95(L) 96 - 110 mmol/L LAB CHEMISTRY METHOD 07/18/2024 7:[address] [facility] CO2 27 21 - 32 mmol/L LAB CHEMISTRY METHOD 07/18/2024 7:[address] [facility] Anion Gap 10 3 - 11 LAB CHEMISTRY METHOD 07/18/2024 7:[address] [facility] Glucose 225(H) 70 - 100 mg/dL LAB CHEMISTRY METHOD 07/18/2024 7:[address] [facility] BUN 67(H) 5 - 25 mg/dL LAB CHEMISTRY METHOD 07/18/2024 7:[address] [facility] Creatinine 4.92(H) 0.50 - 1.10 mg/dL LAB CHEMISTRY METHOD 07/18/2024 7:[address] [facility] eGFR 8(L) >=60 mL/min/1. 73m2 LAB CHEMISTRY METHOD 07/18/2024 7:[address] [facility] Comment:Calculation based on the??Chronic Kidney Disease Epidemiology Collaboration (CKD-EPI) equation refit??without adjustment for race. BUN/Creatinine Ratio 13.6 LAB CHEMISTRY METHOD 07/18/2024 7:[address] [facility] Calcium 7.5(L) 8.5 - 10.5 mg/dL LAB CHEMISTRY METHOD 07/18/2024 7:[address] [facility] Blood Venous blood specimen / Unknown 07/18/2024 6:07 AM EST 07/18/2024 6:34 AM EST us Kwesi Guido MD LAB BLOOD ORDERABLES F inal Result Performing Organization Address [facility]/ZIP Co de Phone Number [facility] [address] [place] [address], [place] [phone] * (ABNORMAL) Anti-Xa - Every 6 Hours (07/18/2024 12:19 AM EST) Heparin Anti-Xa 0.19(L) 0.30 - 0.70 I Unit/mL LAB COAGULATION METHOD 07/18/2024 12:48 AM EST [facility] Blood Venous blood specimen / Unknown Venipuncture / Unknown 07/18/2024 12:19 AM EST 07/18/2024 12:38 AM EST Narrative [facility] - 07/18/2024 12:48 AM EST Therapeutic range listed is for Unfractionated Heparin. LMW Heparin therapeutic range: 0.50-1.20 IU/mL us Kwesi Guido MD LAB BLOOD ORDERABLES F inal Result Performing Organization Address [facility]/ZIP Co de Phone Number [facility] [address] [place] [address], [place] [phone] * (ABNORMAL) POCT Glucose, blood (07/17/2024 9:12 PM EST) Glucose POCT 240(H) 70 - 100 mg/dL 07/17/2024 9:13 PM EST [facility] Blood Capillary blood specimen / Unknown 07/17/2024 9:12 PM EST 07/17/2024 9:14 PM EST us Kwesi Guido MD LAB POINT OF C ARE TEST DOCKED DEVICE UNSOLICITED RESULTS Final Result Performing Organization Address [facility]/ZIP Co de Phone Number [facility] [address] [place] [address], [place] [phone] * Anti-Xa - Every 6 Hours (07/17/2024 6:37 PM EST) Heparin Anti-Xa 0.30 0.30 - 0.70 I Unit/mL LAB COAGULATION METHOD 07/17/2024 7:18 PM EST [facility] Blood Venous blood specimen / Unknown Venipuncture / Unknown 07/17/2024 6:37 PM EST 07/17/2024 7:06 PM EST Narrative [facility] - 07/17/2024 7:18 PM EST Therapeutic range listed is for Unfractionated Heparin. LMW Heparin therapeutic range: 0.50-1.20 IU/mL us Kwesi Guido MD LAB BLOOD ORDERABLES F inal Result [facility] [address] [place] [address], [place] [phone] * (ABNORMAL) POCT Glucose, blood (07/17/2024 4:15 PM EST) Glucose POCT 238(H) 70 - 100 mg/dL 07/17/2024 4:16 PM EST [facility] Blood Capillary blood specimen / Unknown 07/17/2024 4:15 PM EST 07/17/2024 4:17 PM EST us Kwesi Guido MD LAB POINT OF C ARE TEST DOCKED DEVICE UNSOLICITED RESULTS Final Result [facility] [address] [place] [address], [place] [phone] * Anti-Xa - Every 6 Hours (07/17/2024 12:29 PM EST) Heparin Anti-Xa 0.37 0.30 - 0.70 I Unit/mL LAB COAGULATION METHOD 07/17/2024 1:11 PM EST [facility] Blood Venous blood specimen / Unknown Venipuncture / Unknown 07/17/2024 12:29 PM EST 07/17/2024 12:35 PM EST Narrative [facility] - 07/17/2024 1:11 PM EST Therapeutic range listed is for Unfractionated Heparin. LMW Heparin therapeutic range: 0.50-1.20 IU/mL us Kwesi Guido MD LAB BLOOD ORDERABLES F inal Result Performing Organization Address City/[facility]/ZIP Co de Phone Number [facility] [address] [place] [address], [place] [phone] * (ABNORMAL) POCT Glucose, blood (07/17/2024 11:19 AM EST) Glucose POCT 307(H) 70 - 100 mg/dL 07/17/2024 11:25 AM EST [facility] Blood Capillary blood specimen / Unknown 07/17/2024 11:19 AM EST 07/17/2024 11:26 AM EST us Kwesi Guido MD LAB POINT OF C ARE TEST DOCKED DEVICE UNSOLICITED RESULTS Final Result Performing Organization Address City/[facility]/ZIP Co de Phone Number [facility] [address] [place] [address], [place] [phone] * (ABNORMAL) POCT Glucose, blood (07/17/2024 7:57 AM EST) Glucose POCT 258(H) 70 - 100 mg/dL 07/17/2024 7:58 AM EST [facility] Blood Capillary blood specimen / Unknown 07/17/2024 7:57 AM EST 07/17/2024 7:59 AM EST us Kwesi Guido MD LAB POINT OF C ARE TEST DOCKED DEVICE UNSOLICITED RESULTS Final Result Performing Organization Address [facility]/ZIP Co de Phone Number [facility] [address] [place] [address], * (ABNORMAL) Anti-Xa - Every 6 Hours (07/17/2024 6:30 AM EST) Heparin Anti-Xa 0.20(L) 0.30 - 0.70 I Unit/mL LAB COAGULATION METHOD 07/17/2024 7:43 AM EST [facility] Blood Venous blood specimen / Unknown Venipuncture / Unknown 07/17/2024 6:30 AM EST 07/17/2024 7:06 AM EST Narrative [facility] - 07/17/2024 7:43 AM EST Therapeutic range listed is for Unfractionated Heparin. LMW Heparin therapeutic range: 0.50-1.20 IU/mL Kwesi Guido MD LAB BLOOD ORDERABLES F inal Result Performing Organization Address [facility]/ZIP Co de Phone Number [facility] [address] [place] [address], * (ABNORMAL) CBC auto differential (07/17/2024 6:30 AM EST) WBC 23.0(H) 4.8 - 10.8 K/mcL LAB HEMETOLOGY METHOD 07/17/2024 8:50 AM EST [facility] RBC 3.30(L) 3.80 - 4.80 M/mcL LAB HEMETOLOGY METHOD 07/17/2024 8:[address] [facility] Hemoglobin 8.0(L) 11.5 - 16.0 g/dL LAB HEMETOLOGY METHOD 07/17/2024 8:[address] [facility] Hematocrit 25.6(L) 35.0 - 47.0 % LAB HEMETOLOGY METHOD 07/17/2024 8:[address] [facility] MCV 78.5(L) 79.0 - 98.0 FL LAB HEMETOLOGY METHOD 07/17/2024 8:[address] [facility] MCH 24.5(L) 27.0 - 32.0 pcg LAB HEMETOLOGY METHOD 07/17/2024 8:[address] [facility] MCHC 31.3(L) 32.0 - 37.0 g/dL LAB HEMETOLOGY METHOD 07/17/2024 8:[address] [facility] RDW 23.9(H) 11.0 - 15.0 % LAB HEMETOLOGY METHOD 07/17/2024 8:[address] [facility] Platelets 252 130 - 400 K/mcL LAB HEMETOLOGY METHOD 07/17/2024 8:[address] [facility] MPV 9.9 7.0 - 11.0 FL LAB HEMETOLOGY METHOD 07/17/2024 8:[address] [facility] NRBC 0.0 <1.0 % LAB HEMETOLOGY METHOD 07/17/2024 8:[address] [facility] NRBC Absolute 0.00 <0.10 K/mcL LAB HEMETOLOGY METHOD 07/17/2024 8:[address] [facility] Neutrophils Relative 90.9 % LAB HEMETOLOGY METHOD 07/17/2024 8:[address] [facility] Lymphocytes Relative 2.6 % LAB HEMETOLOGY METHOD 07/17/2024 8:[address] [facility] Monocytes Relative 4.8 % LAB HEMETOLOGY METHOD 07/17/2024 8:[address] [facility] Eosinophils Relative 0.5 % LAB HEMETOLOGY METHOD 07/17/2024 8:[address] [facility] Basophils Relative 0.1 % LAB HEMETOLOGY METHOD 07/17/2024 8:50 AM EST [facility] Immature Granulocytes Relative 1.1 % LAB HEMETOLOGY METHOD 07/17/2024 8:50 AM EST [facility] Neutrophils Absolute 20.92(H) 1.50 - 7.00 K/[facility] LAB HEMETOLOGY METHOD 07/17/2024 8:50 AM EST [facility] Lymphocytes Absolute 0.60(L) 1.00 - 5.00 K/mcL LAB HEMETOLOGY METHOD 07/17/2024 8:50 AM EST [facility] Monocytes Absolute 1.11(H) 0.20 - 1.00 K/mcL LAB HEMETOLOGY METHOD 07/17/2024 8:50 AM EST [facility] Eosinophils Absolute 0.11 0.00 - 0.50 K/[facility] LAB HEMETOLOGY METHOD 07/17/2024 8:50 AM EST [facility] Basophils Absolute 0.03 0.00 - 0.20 K/[facility] LAB HEMETOLOGY METHOD 07/17/2024 8:50 AM EST [facility] Immature Granulocytes Absolute 0.26(H) 0.00 - 0.03 K/mcL LAB HEMETOLOGY METHOD 07/17/2024 8:[address] [facility] Blood Venous blood specimen / Unknown Venipuncture / Unknown 07/17/2024 6:30 AM EST 07/17/2024 7:06 AM EST us Kwesi Guido MD LAB BLOOD ORDERABLES F inal Result [facility]) [facility] [address] [place] [address], * (ABNORMAL) CBC - Every 3 Days (07/17/2024 6:30 AM EST) WBC 23.0(H) 4.8 - 10.8 K/mcL LAB HEMETOLOGY METHOD 07/17/2024 8:[address] [facility] RBC 3.30(L) 3.80 - 4.80 M/mcL LAB HEMETOLOGY METHOD 07/17/2024 8:[address] [facility] Hemoglobin 8.0(L) 11.5 - 16.0 g/dL LAB HEMETOLOGY METHOD 07/17/2024 8:[address] [facility] Hematocrit 25.6(L) 35.0 - 47.0 % LAB HEMETOLOGY METHOD 07/17/2024 8:[address] [facility] MCV 78.5(L) 79.0 - 98.0 FL LAB HEMETOLOGY METHOD 07/17/2024 8:[address] [facility] MCH 24.5(L) 27.0 - 32.0 pcg LAB HEMETOLOGY METHOD 07/17/2024 8:[address] [facility] MCHC 31.3(L) 32.0 - 37.0 g/dL LAB HEMETOLOGY METHOD 07/17/2024 8:[address] [facility] RDW 23.9(H) 11.0 - 15.0 % LAB HEMETOLOGY METHOD 07/17/2024 8:[address] [facility] Platelets 252 130 - 400 K/mcL LAB HEMETOLOGY METHOD 07/17/2024 8:[address] [facility] MPV 9.9 7.0 - 11.0 FL LAB HEMETOLOGY METHOD 07/17/2024 8:[address] [facility] NRBC 0.0 <1.0 % LAB HEMETOLOGY METHOD 07/17/2024 8:[address] [facility] NRBC Absolute 0.00 <0.10 K/mcL LAB HEMETOLOGY METHOD 07/17/2024 8:[address] [facility] Blood Venous blood specimen / Unknown Venipuncture / Unknown 07/17/2024 6:30 AM EST 07/17/2024 7:06 AM EST us Kwesi Guido MD LAB BLOOD ORDERABLES F inal Result Performing Organization Address [facility]/ZIP Co de Phone Number [facility] [address] [place] [address], [place] [phone] * Phosphorus (07/17/2024 6:30 AM EST) [facility] Phosphorus 2.9 2.5 - 4.5 mg/dL LAB CHEMISTRY METHOD 07/17/2024 8:09 AM EST [facility] Blood Venous blood specimen / Unknown Venipuncture / Unknown 07/17/2024 6:30 AM EST 07/17/2024 7:06 AM EST us Kwesi Guido MD LAB BLOOD ORDERABLES F inal Result Performing Organization Address [facility]/ZIP Co de Phone Number [facility] [address] [place] [address], [place] [phone] * Magnesium (07/17/2024 6:30 AM EST) [facility] Magnesium 2.2 1.9 - 2.6 mg/dL LAB CHEMISTRY METHOD 07/17/2024 8:09 AM EST [facility] Blood Venous blood specimen / Unknown Venipuncture / Unknown 07/17/2024 6:30 AM EST 07/17/2024 7:06 AM EST us Kwesi Guido MD LAB BLOOD ORDERABLES F inal Result Performing Organization Address City/[facility]/ZIP Co de Phone Number [facility] [address] [place] [address], [place] [phone] * (ABNORMAL) Basic metabolic panel (07/17/2024 6:30 AM EST) Sodium 133 133 - 145 mmol/L LAB CHEMISTRY METHOD 07/17/2024 8:[address] [facility] Potassium 3.8 3.5 - 5.5 mmol/L LAB CHEMISTRY METHOD 07/17/2024 8:[address] [facility] Chloride 96 96 - 110 mmol/L LAB CHEMISTRY METHOD 07/17/2024 8:[address] [facility] CO2 26 21 - 32 mmol/L LAB CHEMISTRY METHOD 07/17/2024 8:[address] [facility] Anion Gap 11 3 - 11 LAB CHEMISTRY METHOD 07/17/2024 8:[address] [facility] Glucose 293(H) 70 - 100 mg/dL LAB CHEMISTRY METHOD 07/17/2024 8:[address] [facility] BUN 53(H) 5 - 25 mg/dL LAB CHEMISTRY METHOD 07/17/2024 8:[address] [facility] Creatinine 4.03(H) 0.50 - 1.10 mg/dL LAB CHEMISTRY METHOD 07/17/2024 8:[address] [facility] eGFR 11(L) >=60 mL/min/1. 73m2 LAB CHEMISTRY METHOD 07/17/2024 8:[address] [facility] Comment:Calculation based on the??Chronic Kidney Disease Epidemiology Collaboration (CKD-EPI) equation refit??without adjustment for race. BUN/Creatinine Ratio 13.2 LAB CHEMISTRY METHOD 07/17/2024 8:[address] [facility] Calcium 7.7(L) 8.5 - 10.5 mg/dL LAB CHEMISTRY METHOD 07/17/2024 8:[address] [facility] Blood Venous blood specimen / Unknown Venipuncture / Unknown 07/17/2024 6:30 AM EST 07/17/2024 7:06 AM EST Kwesi Guido MD LAB BLOOD ORDERABLES F inal Result Performing Organization Address [facility]/ZIP Co de Phone Number [facility] [address] [place] [address], [place] [phone] * (ABNORMAL) Anti-Xa - Every 6 Hours (07/17/2024 12:16 AM EST) Heparin Anti-Xa 0.14(L) 0.30 - 0.70 I Unit/mL LAB COAGULATION METHOD 07/17/2024 12:45 AM EST [facility] Blood Venous blood specimen / Unknown Venipuncture / Unknown 07/17/2024 12:16 AM EST 07/17/2024 12:35 AM EST Narrative [facility] - 07/17/2024 12:45 AM EST Therapeutic range listed is for Unfractionated Heparin. LMW Heparin therapeutic range: 0.50-1.20 IU/mL us Kwesi Guido MD LAB BLOOD ORDERABLES F inal Result Performing Organization Address [facility]/ZIP Co de Phone Number [facility] [address] [place] [address], [place] [phone] * (ABNORMAL) POCT Glucose, blood (07/16/2024 8:30 PM EST) Glucose POCT 263(H) 70 - 100 mg/dL 07/16/2024 8:31 PM EST [facility] Blood Capillary blood specimen / Unknown 07/16/2024 8:30 PM EST 07/16/2024 8:33 PM EST us Kwesi Guido MD LAB POINT OF C ARE TEST DOCKED DEVICE UNSOLICITED RESULTS Final Result Performing Organization Address [facility]/ZIP Co de Phone Number [facility] [address] [place] [address], [place] [phone] * (ABNORMAL) Anti-Xa - STAT (07/16/2024 5:50 PM EST) Heparin Anti-Xa <0.04(L) 0.30 - 0.70 I Unit/mL LAB COAGULATION METHOD 07/16/2024 6:18 PM EST [facility] Blood Venous blood specimen / Unknown Venipuncture / Unknown 07/16/2024 5:50 PM EST 07/16/2024 6:01 PM EST Narrative [facility] - 07/16/2024 6:18 PM EST Therapeutic range listed is for Unfractionated Heparin. LMW Heparin therapeutic range: 0.50-1.20 IU/mL us Kwesi Guido MD LAB BLOOD ORDERABLES F inal Result Performing Organization Address City/[facility]/ZIP Co de Phone Number [facility] [address] [place] [address], [place] [phone] * Activated Partial Thromboplastin Time - STAT (07/16/2024 5:50 PM EST) Pathologist [facility] aPTT 31.3 24.1 - 39.3 sec LAB COAGULATION METHOD 07/16/2024 6:13 PM EST [facility] Blood Venous blood specimen / Unknown Venipuncture / Unknown 07/16/2024 5:50 PM EST 07/16/2024 6:01 PM EST us Kwesi Guido MD LAB BLOOD ORDERABLES F inal Result [facility] [address] [place] [address], [place] [phone] * (ABNORMAL) POCT Glucose, blood (07/16/2024 4:28 PM EST) Glucose POCT 170(H) 70 - 100 mg/dL 07/16/2024 4:31 PM EST [facility] Blood Capillary blood specimen / Unknown 07/16/2024 4:28 PM EST 07/16/2024 4:32 PM EST us Kwesi Guido MD LAB POINT OF C ARE TEST DOCKED DEVICE UNSOLICITED RESULTS Final Result [facility] ([facility] [address] [place] [address], [place] [phone] * Vascular US duplex lower extremity venous [...] Signed Date: 07/16/2024 12:33 ET Workstation ID: [id number] Transcribed By: Self Edit Transcribed Date: 07/16/2024 [...] Signed Date: 07/16/2024 12:33 ET Workstation ID: [id number] Transcribed By: Self Edit Transcribed Date: 07/16/2024 12:28 ET us Kwesi Guido MD CV VASCULAR PROCEDURES Final Result * (ABNORMAL) POCT Glucose, blood (07/16/2024 10:42 AM EST) Pathologist [facility] Glucose POCT 105(H) 70 - 100 mg/dL 07/16/2024 10:44 AM EST [facility] Blood Capillary blood specimen / Unknown 07/16/2024 10:42 AM EST 07/16/2024 10:45 AM EST us Kwesi Guiod MD LAB POINT OF C ARE TEST DOCKED DEVICE UNSOLICITED RESULTS Final Result [facility] [address] [place] [address], * (ABNORMAL) Basic metabolic panel (07/16/2024 6:45 AM EST) Pathologist [facility] Sodium 135 133 - 145 mmol/L LAB CHEMISTRY METHOD 07/16/2024 8:40 AM EST [facility] Potassium 3.8 3.5 - 5.5 mmol/L LAB CHEMISTRY METHOD 07/16/2024 8:[address] [facility] Chloride 103 96 - 110 mmol/L LAB CHEMISTRY METHOD 07/16/2024 8:[address] [facility] CO2 18(L) 21 - 32 mmol/L LAB CHEMISTRY METHOD 07/16/2024 8:[address] [facility] Anion Gap 14(H) 3 - 11 LAB CHEMISTRY METHOD 07/16/2024 8:[address] [facility] Glucose 100 70 - 100 mg/dL LAB CHEMISTRY METHOD 07/16/2024 8:[address] [facility] BUN 77(H) 5 - 25 mg/dL LAB CHEMISTRY METHOD 07/16/2024 8:[address] [facility] Creatinine 5.37(H) 0.50 - 1.10 mg/dL LAB CHEMISTRY METHOD 07/16/2024 8:[address] [facility] eGFR 8(L) >=60 mL/min/1. 73m2 LAB CHEMISTRY METHOD 07/16/2024 8:[address] [facility] Comment:Calculation based on the??Chronic Kidney Disease Epidemiology Collaboration (CKD-EPI) equation refit??without adjustment for race. BUN/Creatinine Ratio 14.3 LAB CHEMISTRY METHOD 07/16/2024 8:[address] [facility] Calcium 8.0(L) 8.5 - 10.5 mg/dL LAB CHEMISTRY METHOD 07/16/2024 8:[address] [facility] Blood Venous blood specimen / Unknown Venipuncture / Unknown 07/16/2024 6:45 AM EST 07/16/2024 6:58 AM EST us Kwesi Guido MD LAB BLOOD ORDERABLES F inal Result [facility] [address] [place] [address], [place] [phone] * (ABNORMAL) Complete blood count (07/16/2024 6:45 AM EST) WBC 27.6(H) 4.8 - 10.8 K/mcL LAB HEMETOLOGY METHOD 07/16/2024 7:[address] [facility] RBC 3.40(L) 3.80 - 4.80 M/mcL LAB HEMETOLOGY METHOD 07/16/2024 7:[address] [facility] Hemoglobin 8.4(L) 11.5 - 16.0 g/dL LAB HEMETOLOGY METHOD 07/16/2024 7:[address] [facility] Hematocrit 25.9(L) 35.0 - 47.0 % LAB HEMETOLOGY METHOD 07/16/2024 7:[address] [facility] MCV 76.2(L) 79.0 - 98.0 FL LAB HEMETOLOGY METHOD 07/16/2024 7:[address] [facility] MCH 24.7(L) 27.0 - 32.0 pcg LAB HEMETOLOGY METHOD 07/16/2024 7:[address] [facility] MCHC 32.4 32.0 - 37.0 g/dL LAB HEMETOLOGY METHOD 07/16/2024 7:[address] [facility] RDW 23.1(H) 11.0 - 15.0 % LAB HEMETOLOGY METHOD 07/16/2024 7:[address] [facility] Platelets 258 130 - 400 K/mcL LAB HEMETOLOGY METHOD 07/16/2024 7:[address] [facility] MPV 9.9 7.0 - 11.0 FL LAB HEMETOLOGY METHOD 07/16/2024 7:[address] [facility] NRBC 0.0 <1.0 % LAB HEMETOLOGY METHOD 07/16/2024 7:[address] [facility] NRBC Absolute 0.00 <0.10 K/mcL LAB HEMETOLOGY METHOD 07/16/2024 7:[address] [facility] Blood Venous blood specimen / Unknown Venipuncture / Unknown 07/16/2024 6:45 AM EST 07/16/2024 6:58 AM EST us Kwesi Guido MD LAB BLOOD ORDERABLES F inal Result Performing Organization Address [facility]/ZIP Co de Phone Number [facility] [address] [place] [address], [place] [phone] * POCT Glucose, blood (07/15/2024 8:26 PM EST) Glucose POCT 93 70 - 100 mg/dL 07/15/2024 8:26 PM EST [facility] Blood Capillary blood specimen / Unknown 07/15/2024 8:26 PM EST 07/15/2024 8:27 PM EST us Kwesi Guido MD LAB POINT OF C ARE TEST DOCKED DEVICE UNSOLICITED RESULTS Final Result Performing Organization Address [facility] de Phone Number [facility] [address] [place] [address], [place] [phone] * POCT Glucose, blood (07/15/2024 4:30 PM EST) Glucose POCT 92 70 - 100 mg/dL 07/15/2024 4:31 PM EST [facility] Blood Capillary blood specimen / Unknown 07/15/2024 4:30 PM EST 07/15/2024 4:33 PM EST us Kwesi Guido MD LAB POINT OF C ARE TEST DOCKED DEVICE UNSOLICITED RESULTS Final Result Performing Organization Address [facility]/ZIP Co de Phone Number [facility] [address] [place] [address], [place] [phone] * IR Insert Tunneled CVC wo Port or Pump More 5yrs Left (07/15/2024 3:36 PM EST) Anatomical Region Laterality Modality Left Interventional R adiology 07/15/2024 3:45 PM EST Impressions 07/15/2024 3:47 PM EST Successful placement of a 14 Burmese 23 cm dual-lumen cuffed tunneled dialysis catheter with the tip at the cavoatrial junction. This line may be used immediately. -------- FINAL REPORT -------- Dictated By: Fela Palomo Dictated Date: 07/15/2024 15:45 ET Assigned Physician: Fela Palomo Reviewed and Electronically Signed By: Fela Palomo Signed Date: 07/15/2024 15:47 ET Workstation ID: [id number] Transcribed By: Self Edit Transcribed Date: 07/15/2024 [...] The needle was exchanged for the 4 Burmese transition sheath. A 0.035 wire was then advanced through ??the sheath and into the inferior vena cava under fluoroscopy. The sheath was then exchanged for a 7 Burmese vascular dilator. Attention was then turned to the right upper chest and the appropriate area was anesthetized with 2% lidocaine. A small dermatotomy was performed and then a tunnel was created from the dermatotomy to the initial venous access site. The catheter was advanced through the tunnel. ??The initial venous access site was then serially dilated up to a 15 Burmese peel-away sheath. The catheter was then advanced [...] The needle was exchanged for the 4 Burmese transition sheath. A 0.035wire was then advanced through the sheath and into the inferior vena cavaunder fluoroscopy. The sheath was then exchanged for a 7 Burmese vasculardilator. Attention was then turned to the right upper chest and the appropriatearea was anesthetized with 2% lidocaine. A small dermatotomy was performedand then a tunnel was created from the dermatotomy to the initial venousaccess site. The catheter was advanced through the tunnel. The initialvenous access site was then serially dilated up to a 15 Burmese peel-awaysheath. The catheter was then advanced through [...] mGy IMPRESSION: Successful placement of a 14 Burmese 23 cm dual-lumen cuffed tunneleddialysis catheter with the tip at the cavoatrial junction. This line maybe used immediately. -------- FINAL REPORT -------- Dictated By: Fela Palomo Dictated Date: 07/15/2024 15:45 ET Assigned Physician: Fela Palomo Reviewed and Electronically Signed By: Fela Palomo Signed Date: 07/15/2024 15:47 ET Workstation ID: [id number] Transcribed By: Self Edit Transcribed Date: 07/15/2024 15:45 ET Chencho Wayne MD IMG IR PROCEDURES Final Result * POCT Glucose, blood (07/15/2024 10:57 AM EST) [facility] Glucose POCT 98 70 - 100 mg/dL 07/15/2024 10:58 AM EST [facility] Blood Capillary blood specimen / Unknown 07/15/2024 10:57 AM EST 07/15/2024 10:59 AM EST Kwesi Guido MD LAB POINT OF C ARE TEST DOCKED DEVICE UNSOLICITED RESULTS Final Result [facility]) [facility] [address] [place] [address], [place] [phone] * (ABNORMAL) Basic metabolic panel (07/15/2024 8:56 AM EST) [facility] Sodium 132(L) 133 - 145 mmol/L LAB CHEMISTRY METHOD 07/15/2024 10:[address] [facility] Potassium 3.8 3.5 - 5.5 mmol/L LAB CHEMISTRY METHOD 07/15/2024 10:[address] [facility] Chloride 104 96 - 110 mmol/L LAB CHEMISTRY METHOD 07/15/2024 10:[address] [facility] CO2 16(L) 21 - 32 mmol/L LAB CHEMISTRY METHOD 07/15/2024 10:[address] [facility] Anion Gap 12(H) 3 - 11 LAB CHEMISTRY METHOD 07/15/2024 10:[address] [facility] Glucose 80 70 - 100 mg/dL LAB CHEMISTRY METHOD 07/15/2024 10:[address] [facility] BUN 97(H) 5 - 25 mg/dL LAB CHEMISTRY METHOD 07/15/2024 10:[address] [facility] Creatinine 6.70(H) 0.50 - 1.10 mg/dL LAB CHEMISTRY METHOD 07/15/2024 10:[address] [facility] eGFR 6(L) >=60 mL/min/1. 73m2 LAB CHEMISTRY METHOD 07/15/2024 10:[address] [facility] Comment:Calculation based on the??Chronic Kidney Disease Epidemiology Collaboration (CKD-EPI) equation refit??without adjustment for race. BUN/Creatinine Ratio 14.5 LAB CHEMISTRY METHOD 07/15/2024 10:[address] [facility] Calcium 8.4(L) 8.5 - 10.5 mg/dL LAB CHEMISTRY METHOD 07/15/2024 10:[address] [facility] Blood Venous blood specimen / Unknown Venipuncture / Unknown 07/15/2024 8:56 AM EST 07/15/2024 9:43 AM EST Kwesi Guido MD LAB BLOOD ORDERABLES F inal Result Performing Organization Address [facility]/ZIP Co de Phone Number [facility] [address] [place] [address], * Hepatitis B surface antigen with reflex to confirmation (07/15/2024 8:56 AM EST) Pathologist [facility] Hepatitis B Surface Ag Negative Negative LAB CHEMISTRY METHOD 07/15/2024 10:36 AM EST [facility] Blood Venous blood specimen / Unknown Venipuncture / Unknown 07/15/2024 8:56 AM EST 07/15/2024 9:43 AM EST [facility] - 07/15/2024 10:36 AM EST Over the counter supplements containing high doses of biotin may interfere with this assay. ??If interference is suspected, patients shoud be retested after refraining from biotin supplements for 72 hours. us Kweis Guido MD LAB BLOOD ORDERABLES F inal Result Performing Organization Address [facility]/ZIP Co de Phone Number [facility] [address] [place] [address], * Hepatitis B surface antibody quantitative (07/15/2024 8:56 AM EST) [facility] Hepatitis B Surface Ab Negative Negative LAB CHEMISTRY METHOD 07/15/2024 10:25 AM EST [facility] Hepatitis B Surface Ab Quantitative <3.1 mIU/mL LAB CHEMISTRY METHOD 07/15/2024 10:25 AM EST [facility] Blood Venous blood specimen / Unknown Venipuncture / Unknown 07/15/2024 8:56 AM EST 07/15/2024 9:43 AM EST [facility] - 07/15/2024 10:25 AM EST >=10 mIU/mL is considered to be consistent with immunity. us Kwesi Guido MD LAB BLOOD ORDERABLES F inal Result [facility] [address] [place] [address], * (ABNORMAL) Renal function panel (07/15/2024 8:56 AM EST) Sodium 132(L) 133 - 145 mmol/L LAB CHEMISTRY METHOD 07/15/2024 10:[address] [facility] Potassium 3.8 3.5 - 5.5 mmol/L LAB CHEMISTRY METHOD 07/15/2024 10:[address] [facility] Chloride 104 96 - 110 mmol/L LAB CHEMISTRY METHOD 07/15/2024 10:[address] [facility] CO2 16(L) 21 - 32 mmol/L LAB CHEMISTRY METHOD 07/15/2024 10:[address] [facility] Anion Gap 12(H) 3 - 11 LAB CHEMISTRY METHOD 07/15/2024 10:[address] [facility] Glucose 80 70 - 100 mg/dL LAB CHEMISTRY METHOD 07/15/2024 10:[address] [facility] BUN 97(H) 5 - 25 mg/dL LAB CHEMISTRY METHOD 07/15/2024 10:[address] [facility] Creatinine 6.70(H) 0.50 - 1.10 mg/dL LAB CHEMISTRY METHOD 07/15/2024 10:[address] [facility] eGFR 6(L) >=60 mL/min/1. 73m2 LAB CHEMISTRY METHOD 07/15/2024 10:[address] [facility] Comment:Calculation based on the??Chronic Kidney Disease Epidemiology Collaboration (CKD-EPI) equation refit??without adjustment for race. BUN/Creatinine Ratio 14.5 LAB CHEMISTRY METHOD 07/15/2024 10:[address] [facility] Albumin 3.3 3.2 - 5.0 g/dL LAB CHEMISTRY METHOD 07/15/2024 10:26 AM EST [facility] Comment:Results verified by repeat testing Calcium 8.4(L) 8.5 - 10.5 mg/dL LAB CHEMISTRY METHOD 07/15/2024 10:[address] [facility] Phosphorus 4.2 2.5 - 4.5 mg/dL LAB CHEMISTRY METHOD 07/15/2024 10:[address] [facility] Blood Venous blood specimen / Unknown Venipuncture / Unknown 07/15/2024 8:56 AM EST 07/15/2024 9:43 AM EST Chencho Wayne MD LAB BLOOD ORDERABLES Final Resu lt [facility] [address] [place] [address], [place] [phone] * POCT Glucose, blood (07/15/2024 8:03 AM EST) Glucose POCT 96 70 - 100 mg/dL 07/15/2024 8:05 AM EST [facility] Blood Capillary blood specimen / Unknown 07/15/2024 8:03 AM EST 07/15/2024 8:06 AM EST us Kwesi Guido MD LAB POINT OF C ARE TEST DOCKED DEVICE UNSOLICITED RESULTS Final Result [facility] [address] [place] [address], [place] [phone] * (ABNORMAL) RBC morphology review (07/15/2024 6:56 [...] (none) LAB HEMETOLOGY METHOD 07/15/2024 8:[address] [facility] Schistocytes Present < 5%(A) (none) LAB HEMETOLOGY METHOD 07/15/2024 8:[address] [facility] Blood Venous blood specimen / Unknown Venipuncture / Unknown 07/15/2024 6:56 AM EST 07/15/2024 7:52 AM EST Kwesi Guido MD LAB BLOOD ORDERABLES F inal Result [facility] [address] [place] [address], * (ABNORMAL) CBC auto differential (07/15/2024 6:56 AM EST) WBC 23.7(H) 4.8 - 10.8 K/mcL LAB HEMETOLOGY METHOD 07/15/2024 8:[address] [facility] RBC 3.10(L) 3.80 - 4.80 M/mcL LAB HEMETOLOGY METHOD 07/15/2024 8:[address] [facility] Hemoglobin 7.5(L) 11.5 - 16.0 g/dL LAB HEMETOLOGY METHOD 07/15/2024 8:[address] [facility] Hematocrit 23.6(L) 35.0 - 47.0 % LAB HEMETOLOGY METHOD 07/15/2024 8:[address] [facility] MCV 75.9(L) 79.0 - 98.0 FL LAB HEMETOLOGY METHOD 07/15/2024 8:[address] [facility] MCH 24.1(L) 27.0 - 32.0 pcg LAB HEMETOLOGY METHOD 07/15/2024 8:[address] [facility] MCHC 31.8(L) 32.0 - 37.0 g/dL LAB HEMETOLOGY METHOD 07/15/2024 8:[address] [facility] RDW 22.7(H) 11.0 - 15.0 % LAB HEMETOLOGY METHOD 07/15/2024 8:[address] [facility] Platelets 246 130 - 400 K/mcL LAB HEMETOLOGY METHOD 07/15/2024 8:[address] [facility] MPV 10.3 7.0 - 11.0 FL LAB HEMETOLOGY METHOD 07/15/2024 8:[address] [facility] NRBC 0.0 <1.0 % LAB HEMETOLOGY METHOD 07/15/2024 8:[address] [facility] NRBC Absolute 0.00 <0.10 K/mcL LAB HEMETOLOGY METHOD 07/15/2024 8:[address] [facility] Neutrophils Relative 87.4 % LAB HEMETOLOGY METHOD 07/15/2024 8:[address] [facility] Comment:This is an appended report. These results have been appended to a previously preliminary verified report. Lymphocytes Relative 3.5 % LAB HEMETOLOGY METHOD 07/15/2024 8:[address] [facility] Comment:This is an appended report. These results have been appended to a previously preliminary verified report. Monocytes Relative 4.8 % LAB HEMETOLOGY METHOD 07/15/2024 8:[address] [facility] Comment:This is an appended report. These results have been appended to a previously preliminary verified report. Eosinophils Relative 1.7 % LAB HEMETOLOGY METHOD 07/15/2024 8:[address] [facility] Comment:This is an appended report. These results have been appended to a previously preliminary verified report. Basophils Relative 0.2 % LAB HEMETOLOGY METHOD 07/15/2024 8:[address] [facility] Comment:This is an appended report. These results have been appended to a previously preliminary verified report. Immature Granulocytes Relative 2.4 % LAB HEMETOLOGY METHOD 07/15/2024 8:[address] [facility] Comment:This is an appended report. These results have been appended to a previously preliminary verified report. Neutrophils Absolute 20.75(H) 1.50 - 7.00 K/mcL LAB HEMETOLOGY METHOD 07/15/2024 8:[address] [facility] Comment:This is an appended report. These results have been appended to a previously preliminary verified report. Lymphocytes Absolute 0.84(L) 1.00 - 5.00 K/mcL LAB HEMETOLOGY METHOD 07/15/2024 8:[address] [facility] Comment:This is an appended report. These results have been appended to a previously preliminary verified report. Monocytes Absolute 1.13(H) 0.20 - 1.00 K/mcL LAB HEMETOLOGY METHOD 07/15/2024 8:[address] [facility] Comment:This is an appended report. These results have been appended to a previously preliminary verified report. Eosinophils Absolute 0.41 0.00 - 0.50 K/mcL LAB HEMETOLOGY METHOD 07/15/2024 8:[address] [facility] Comment:This is an appended report. These results have been appended to a previously preliminary verified report. Basophils Absolute 0.05 0.00 - 0.20 K/mcL LAB HEMETOLOGY METHOD 07/15/2024 8:[address] [facility] Comment:This is an appended report. These results have been appended to a previously preliminary verified report. Immature Granulocytes Absolute 0.56(H) 0.00 - 0.03 K/mcL LAB HEMETOLOGY METHOD 07/15/2024 8:54 AM EST [facility] Comment:This is an appended report. These results have been appended to a previously preliminary verified report. Blood Venous blood specimen / Unknown Venipuncture / Unknown 07/15/2024 6:56 AM EST 07/15/2024 7:52 AM EST us Kwesi Guido MD LAB BLOOD ORDERABLES F inal Result Performing Organization Address City/[facility]/ZIP Co de Phone Number [facility] [address] [place] [address], [place] [phone] * (ABNORMAL) Prothrombin time with INR (07/15/2024 6:56 AM EST) Protime 16.4(H) 10.6 - 13.9 sec LAB COAGULATION METHOD 07/15/2024 8:16 AM EST [facility] INR 1.3 LAB COAGULATION METHOD 07/15/2024 8:16 AM EST [facility] Blood Venous blood specimen / Unknown Venipuncture / Unknown 07/15/2024 6:56 AM EST 07/15/2024 7:52 AM EST us wKesi Guido MD LAB BLOOD ORDERABLES F inal Result Performing Organization Address City/[facility]/ZIP Co de Phone Number [facility] [address] [place] [address], [place] [phone] * Magnesium (07/15/2024 6:56 AM EST) Magnesium 2.2 1.9 - 2.6 mg/dL LAB CHEMISTRY METHOD 07/15/2024 8:48 AM EST [facility] Blood Venous blood specimen / Unknown Venipuncture / Unknown 07/15/2024 6:56 AM EST 07/15/2024 7:52 AM EST us Kwesi Guido MD LAB BLOOD ORDERABLES F inal Result [facility] [address] [place] [address], * (ABNORMAL) Basic metabolic panel (07/15/2024 6:56 AM EST) Sodium 134 133 - 145 mmol/L LAB CHEMISTRY METHOD 07/15/2024 8:[address] [facility] Potassium 3.8 3.5 - 5.5 mmol/L LAB CHEMISTRY METHOD 07/15/2024 8:[address] [facility] Chloride 104 96 - 110 mmol/L LAB CHEMISTRY METHOD 07/15/2024 8:[address] [facility] CO2 15(L) 21 - 32 mmol/L LAB CHEMISTRY METHOD 07/15/2024 8:[address] [facility] Anion Gap 15(H) 3 - 11 LAB CHEMISTRY METHOD 07/15/2024 8:[address] [facility] Glucose 82 70 - 100 mg/dL LAB CHEMISTRY METHOD 07/15/2024 8:[address] [facility] BUN 95(H) 5 - 25 mg/dL LAB CHEMISTRY METHOD 07/15/2024 8:[address] [facility] Creatinine 6.68(H) 0.50 - 1.10 mg/dL LAB CHEMISTRY METHOD 07/15/2024 8:[address] [facility] eGFR 6(L) >=60 mL/min/1. 73m2 LAB CHEMISTRY METHOD 07/15/2024 8:[address] [facility] Comment:Calculation based on the??Chronic Kidney Disease Epidemiology Collaboration (CKD-EPI) equation refit??without adjustment for race. BUN/Creatinine Ratio 14.2 LAB CHEMISTRY METHOD 07/15/2024 8:[address] [facility] Calcium 8.3(L) 8.5 - 10.5 mg/dL LAB CHEMISTRY METHOD 07/15/2024 8:58 AM EST [facility] Blood Venous blood specimen / Unknown Venipuncture / Unknown 07/15/2024 6:56 AM EST 07/15/2024 7:52 AM EST us Kwesi Guido MD LAB BLOOD ORDERABLES F inal Result Performing Organization Address [facility]/ZIP Co de Phone Number [facility] [address] [place] [address], [place] [phone] * (ABNORMAL) POCT Glucose, blood (07/14/2024 8:07 PM EST) Glucose POCT 122(H) 70 - 100 mg/dL 07/14/2024 8:07 PM EST [facility] Blood Capillary blood specimen / Unknown 07/14/2024 8:07 PM EST 07/14/2024 8:09 PM EST us Kwesi Guido MD LAB POINT OF C ARE TEST DOCKED DEVICE UNSOLICITED RESULTS Final Result Performing Organization Address [facility] de Phone Number [facility] [address] [place] [address], [place] [phone] * (ABNORMAL) POCT Glucose, blood (07/14/2024 4:26 PM EST) Glucose POCT 152(H) 70 - 100 mg/dL 07/14/2024 4:27 PM EST [facility] Blood Capillary blood specimen / Unknown 07/14/2024 4:26 PM EST 07/14/2024 4:28 PM EST us Kwesi Guido MD LAB POINT OF C ARE TEST DOCKED DEVICE UNSOLICITED RESULTS Final Result Performing Organization Address [facility]/ZIP Co de Phone Number [facility] [address] [place] [address], [place] [phone] * POCT Glucose, blood (07/14/2024 11:32 AM EST) [facility] Glucose POCT 100 70 - 100 mg/dL 07/14/2024 11:37 AM EST [facility] Blood Capillary blood specimen / Unknown 07/14/2024 11:32 AM EST 07/14/2024 11:38 AM EST us Kwesi Guido MD LAB POINT OF C ARE TEST DOCKED DEVICE UNSOLICITED RESULTS Final Result [facility] [address] [place] [address], [place] [phone] * POCT Glucose, blood (07/14/2024 8:19 AM EST) [facility] Glucose POCT 72 70 - 100 mg/dL 07/14/2024 8:38 AM EST [facility] Blood Capillary blood specimen / Unknown 07/14/2024 8:19 AM EST 07/14/2024 8:39 AM EST us Kwesi Guido MD LAB POINT OF C ARE TEST DOCKED DEVICE UNSOLICITED RESULTS Final Result [facility] [address] [place] [address], [place] [phone] * Extractable Nuclear Antibodies Profile (07/14/2024 6:00 AM EST) [facility] SM Ab Negative Negative LAB CHEMISTRY METHOD 07/17/2024 12:29 PM EST [facility] SM Antibody Quant 2 <20 units LAB CHEMISTRY METHOD 07/17/2024 12:29 PM EST [facility] [employer] Ab Negative Negative LAB CHEMISTRY METHOD 07/17/2024 12:29 PM EST [facility] [employer] Antibody Quant 1 <20 units LAB CHEMISTRY METHOD 07/17/2024 12:29 PM EST [facility] Blood Venous blood specimen / Unknown 07/14/2024 6:00 AM EST 07/14/2024 6:35 AM EST us Kwesi Guido MD LAB BLOOD ORDERABLES F inal Result [facility] [address] [place] [address], [place] [phone] * C4 complement (07/14/2024 6:00 AM EST) C4 Complement 18 16 - 47 mg/dL LAB CHEMISTRY METHOD 07/14/2024 11:20 AM EST [facility] Blood Venous blood specimen / Unknown 07/14/2024 6:00 AM EST 07/14/2024 6:35 AM EST us Kwesi Guido MD LAB BLOOD ORDERABLES F inal Result Performing Organization Address City/[facility]/ZIP Co de Phone Number [facility] [address] [place] [address], [place] [phone] * (ABNORMAL) C3 complement (07/14/2024 6:00 AM EST) C3 Complement 78(L) 88 - 201 mg/dL LAB CHEMISTRY METHOD 07/14/2024 11:20 AM EST [facility] Blood Venous blood specimen / Unknown 07/14/2024 6:00 AM EST 07/14/2024 6:35 AM EST us Kwesi Guido MD LAB BLOOD ORDERABLES F inal Result [facility] [address] [place] [address], [place] [phone] * (ABNORMAL) Anti-neutrophilic cytoplasmic antibody (07/14/2024 6:00 AM EST) [facility] Myeloperoxidase Ab Negative Negative LAB CHEMISTRY METHOD 07/20/2024 12:10 PM EST [facility] Myeloperoxidase Ab, Quant 2 <=20 units LAB CHEMISTRY METHOD 07/20/2024 12:10 PM EST [facility] Proteinase-3 Ab Positive(A ) Negative LAB CHEMISTRY METHOD 07/20/2024 12:[address] [facility] Proteinase-3 Ab Quant 162(H) <=20 units LAB CHEMISTRY METHOD 07/20/2024 12:[address] [facility] Blood Venous blood specimen / Unknown 07/14/2024 6:00 AM EST 07/14/2024 6:35 AM EST Kwesi Guido MD LAB BLOOD ORDERABLES F inal Result [facility] [address] [place] [address], [place] [phone] * (ABNORMAL) CBC auto differential (07/14/2024 6:00 AM EST) [facility] WBC 19.8(H) 4.8 - 10.8 K/mcL LAB HEMETOLOGY METHOD 07/14/2024 6:[address] [facility] RBC 2.90(L) 3.80 - 4.80 M/mcL LAB HEMETOLOGY METHOD 07/14/2024 6:56 AM EST [facility] Hemoglobin 7.0(L) 11.5 - 16.0 g/dL LAB HEMETOLOGY METHOD 07/14/2024 6:[address] [facility] Hematocrit 21.8(L) 35.0 - 47.0 % LAB HEMETOLOGY METHOD 07/14/2024 6:[address] [facility] MCV 75.7(L) 79.0 - 98.0 FL LAB HEMETOLOGY METHOD 07/14/2024 6:[address] [facility] MCH 24.3(L) 27.0 - 32.0 pcg LAB HEMETOLOGY METHOD 07/14/2024 6:[address] [facility] MCHC 32.1 32.0 - 37.0 g/dL LAB HEMETOLOGY METHOD 07/14/2024 6:[address] [facility] RDW 21.6(H) 11.0 - 15.0 % LAB HEMETOLOGY METHOD 07/14/2024 6:[address] [facility] Platelets 193 130 - 400 K/mcL LAB HEMETOLOGY METHOD 07/14/2024 6:[address] [facility] MPV 9.9 7.0 - 11.0 FL LAB HEMETOLOGY METHOD 07/14/2024 6:[address] [facility] NRBC 0.0 <1.0 % LAB HEMETOLOGY METHOD 07/14/2024 6:[address] [facility] NRBC Absolute 0.00 <0.10 K/mcL LAB HEMETOLOGY METHOD 07/14/2024 6:[address] [facility] Neutrophils Relative 85.1 % LAB HEMETOLOGY METHOD 07/14/2024 6:[address] [facility] Lymphocytes Relative 3.7 % LAB HEMETOLOGY METHOD 07/14/2024 6:[address] [facility] Monocytes Relative 6.1 % LAB HEMETOLOGY METHOD 07/14/2024 6:[address] [facility] Eosinophils Relative 2.5 % LAB HEMETOLOGY METHOD 07/14/2024 6:[address] [facility] Basophils Relative 0.2 % LAB HEMETOLOGY METHOD 07/14/2024 6:56 AM EST [facility] Immature Granulocytes Relative 2.4 % LAB HEMETOLOGY METHOD 07/14/2024 6:56 AM EST [facility] Neutrophils Absolute 16.82(H) 1.50 - 7.00 K/mcL LAB HEMETOLOGY METHOD 07/14/2024 6:56 AM EST [facility] Lymphocytes Absolute 0.74(L) 1.00 - 5.00 K/mcL LAB HEMETOLOGY METHOD 07/14/2024 6:56 AM EST [facility] Monocytes Absolute 1.20(H) 0.20 - 1.00 K/mcL LAB HEMETOLOGY METHOD 07/14/2024 6:56 AM EST [facility] Eosinophils Absolute 0.50 0.00 - 0.50 K/mcL LAB HEMETOLOGY METHOD 07/14/2024 6:56 AM EST [facility] Basophils Absolute 0.04 0.00 - 0.20 K/mcL LAB HEMETOLOGY METHOD 07/14/2024 6:[address] [facility] Immature Granulocytes Absolute 0.48(H) 0.00 - 0.03 K/mcL LAB HEMETOLOGY METHOD 07/14/2024 6:56 AM EST [facility] Blood Venous blood specimen / Unknown 07/14/2024 6:00 AM EST 07/14/2024 6:36 AM EST us Kwesi Guido MD LAB BLOOD ORDERABLES F inal Result [facility] [address] [place] [address], * Magnesium (07/14/2024 6:00 AM EST) Magnesium 2.0 1.9 - 2.6 mg/dL LAB CHEMISTRY METHOD 07/14/2024 7:23 AM EST [facility] Blood Venous blood specimen / Unknown 07/14/2024 6:00 AM EST 07/14/2024 6:35 AM EST us Kwesi Guido MD LAB BLOOD ORDERABLES F inal Result [facility] [address] [place] [address], * (ABNORMAL) Basic metabolic panel (07/14/2024 6:00 AM EST) Sodium 132(L) 133 - 145 mmol/L LAB CHEMISTRY METHOD 07/14/2024 7:[address] [facility] Potassium 3.4(L) 3.5 - 5.5 mmol/L LAB CHEMISTRY METHOD 07/14/2024 7:[address] [facility] Chloride 104 96 - 110 mmol/L LAB CHEMISTRY METHOD 07/14/2024 7:[address] [facility] CO2 18(L) 21 - 32 mmol/L LAB CHEMISTRY METHOD 07/14/2024 7:[address] [facility] Anion Gap 10 3 - 11 LAB CHEMISTRY METHOD 07/14/2024 7:[address] [facility] Glucose 69(L) 70 - 100 mg/dL LAB CHEMISTRY METHOD 07/14/2024 7:[address] [facility] BUN 84(H) 5 - 25 mg/dL LAB CHEMISTRY METHOD 07/14/2024 7:[address] [facility] Creatinine 5.84(H) 0.50 - 1.10 mg/dL LAB CHEMISTRY METHOD 07/14/2024 7:[address] [facility] eGFR 7(L) >=60 mL/min/1. 73m2 LAB CHEMISTRY METHOD 07/14/2024 7:[address] [facility] Comment:Calculation based on the??Chronic Kidney Disease Epidemiology Collaboration (CKD-EPI) equation refit??without adjustment for race. BUN/Creatinine Ratio 14.4 LAB CHEMISTRY METHOD 07/14/2024 7:38 AM EST [facility] Calcium 8.2(L) 8.5 - 10.5 mg/dL LAB CHEMISTRY METHOD 07/14/2024 7:38 AM EST [facility] Blood Venous blood specimen / Unknown 07/14/2024 6:00 AM EST 07/14/2024 6:35 AM EST us Kwesi Guido MD LAB BLOOD ORDERABLES F inal Result [facility] [address] [place] [address], [place] [phone] * (ABNORMAL) POCT Glucose, blood (07/13/2024 8:53 PM EST) [facility] Glucose POCT 153(H) 70 - 100 mg/dL 07/13/2024 8:55 PM EST [facility] Blood Capillary blood specimen / Unknown 07/13/2024 8:53 PM EST 07/13/2024 8:56 PM EST us Kwesi Guido MD LAB POINT OF C ARE TEST DOCKED DEVICE UNSOLICITED RESULTS Final Result [facility] [address] [place] [address], [place] [phone] * Transfuse RBC (07/13/2024 7:03 PM EST) us Kwesi Guido MD BLOOD TRANSFUSION ORDE JACEY Final Result * Transfuse RBC: 1 Units (07/13/2024 7:03 PM EST) us Kwesi Guido MD BLOOD TRANSFUSION ORDE JACEY Final Result * (ABNORMAL) POCT Glucose, blood (07/13/2024 3:53 PM EST) Glucose POCT 115(H) 70 - 100 mg/dL 07/13/2024 3:56 PM EST [facility] Blood Capillary blood specimen / Unknown 07/13/2024 3:53 PM EST 07/13/2024 3:57 PM EST us Kwesi Guido MD LAB POINT OF ARE TEST DOCKED DEVICE UNSOLICITED RESULTS Final Result Performing Organization Address City/[facility]/ZIP Co de Phone Number [facility] [address] [place] [address], [place] [phone] * (ABNORMAL) POCT Glucose, blood (07/13/2024 10:58 AM EST) Glucose POCT 106(H) 70 - 100 mg/dL 07/13/2024 10:[address] [facility] Blood Capillary blood specimen / Unknown 07/13/2024 10:58 AM EST 07/13/2024 10:59 AM EST us Kwesi Guido MD LAB POINT OF ARE TEST DOCKED DEVICE UNSOLICITED RESULTS Final Result Performing Organization Address City/[facility]/ZIP Co de Phone Number [facility] [address] [place] [address], [place] [phone] * Prepare RBC: 1 Units (07/13/2024 10:44 AM EST) Product Code [id number] 07/13/2024 12:34 PM EST [facility] Unit Number [id number] 07/13/19 12:[address] [facility] Crossmatch Compatible 07/13/2024 11:[address] [facility] Dispense Status Transfused 07/13/2024 12:34 PM EST [facility] Unit ABO Rh OPOS 07/13/2024 12:34 PM EST [facility] Unit Expiration Date Time 07/13/2024 12:34 PM EST [facility] Unit Blood Type [id number] 07/13/2024 12:34 PM EST [facility] Blood Venous blood specimen / Unknown 07/13/2024 10:44 AM EST 07/13/2024 8:32 AM EST us Kwesi Guido MD BLOOD BANK PRODUCT ORD ERABLES Final Result [facility] [address] [place] [address], [place] [phone] * Type and screen (07/13/2024 8:24 AM EST) ABO Group O 07/13/2024 10:29 AM EST [facility] Rh Type Positive 07/13/2024 10:29 AM EST [facility] Antibody Screen Negative 07/13/2024 10:29 AM EST [facility] Blood Venous blood specimen / Unknown Venipuncture / Unknown 07/13/2024 8:24 AM EST 07/13/2024 8:32 AM EST us Kwesi Guido MD LAB BLOOD BANK TEST OR DERABLES Final Result [facility] [address] [place] [address], [place] [phone] * POCT Glucose, blood (07/13/2024 8:13 AM EST) Glucose POCT 87 70 - 100 mg/dL 07/13/2024 8:20 AM EST [facility] Blood Capillary blood specimen / Unknown 07/13/2024 8:13 AM EST 07/13/2024 8:21 AM EST Kwesi Guido MD LAB POINT OF C ARE TEST DOCKED DEVICE UNSOLICITED RESULTS Final Result [facility] [address] [place] [address], * (ABNORMAL) CBC auto differential (07/13/2024 6:38 AM EST) WBC 20.6(H) 4.8 - 10.8 K/mcL LAB HEMETOLOGY METHOD 07/13/2024 7:[address] [facility] RBC 2.70(L) 3.80 - 4.80 M/mcL LAB HEMETOLOGY METHOD 07/13/2024 7:[address] [facility] Hemoglobin 6.5(L) 11.5 - 16.0 g/dL LAB HEMETOLOGY METHOD 07/13/2024 7:[address] [facility] Hematocrit 20.3(L) 35.0 - 47.0 % LAB HEMETOLOGY METHOD 07/13/2024 7:[address] [facility] MCV 74.4(L) 79.0 - 98.0 FL LAB HEMETOLOGY METHOD 07/13/2024 7:[address] [facility] MCH 23.8(L) 27.0 - 32.0 pcg LAB HEMETOLOGY METHOD 07/13/2024 7:[address] [facility] MCHC 32.0 32.0 - 37.0 g/dL LAB HEMETOLOGY METHOD 07/13/2024 7:[address] [facility] RDW 21.4(H) 11.0 - 15.0 % LAB HEMETOLOGY METHOD 07/13/2024 7:[address] [facility] Platelets 199 130 - 400 K/mcL LAB HEMETOLOGY METHOD 07/13/2024 7:[address] [facility] MPV 9.9 7.0 - 11.0 FL LAB HEMETOLOGY METHOD 07/13/2024 7:[address] [facility] NRBC 0.0 <1.0 % LAB HEMETOLOGY METHOD 07/13/2024 7:[address] [facility] NRBC Absolute 0.00 <0.10 K/mcL LAB HEMETOLOGY METHOD 07/13/2024 7:[address] [facility] Neutrophils Relative 84.4 % LAB HEMETOLOGY METHOD 07/13/2024 7:[address] [facility] LAB Lymphocytes Relative 3.9 % LAB HEMETOLOGY METHOD 07/13/2024 7:[address] [facility] Monocytes Relative 6.3 % LAB HEMETOLOGY METHOD 07/13/2024 7:[address] [facility] Eosinophils Relative 3.3 % LAB HEMETOLOGY METHOD 07/13/2024 7:[address] [facility] Basophils Relative 0.1 % LAB HEMETOLOGY METHOD 07/13/2024 7:[address] [facility] Immature Granulocytes Relative 2.0 % LAB HEMETOLOGY METHOD 07/13/2024 7:[address] [facility] Neutrophils Absolute 17.36(H) 1.50 - 7.00 K/mcL LAB HEMETOLOGY METHOD 07/13/2024 7:[address] [facility] Lymphocytes Absolute 0.81(L) 1.00 - 5.00 K/mcL LAB HEMETOLOGY METHOD 07/13/2024 7:[address] [facility] Monocytes Absolute 1.30(H) 0.20 - 1.00 K/mcL LAB HEMETOLOGY METHOD 07/13/2024 7:[address] [facility] Eosinophils Absolute 0.67(H) 0.00 - 0.50 K/[facility] LAB HEMETOLOGY METHOD 07/13/2024 7:14 AM EST [facility] Basophils Absolute 0.03 0.00 - 0.20 K/[facility] LAB HEMETOLOGY METHOD 07/13/2024 7:14 AM EST [facility] Immature Granulocytes Absolute 0.41(H) 0.00 - 0.03 K/[facility] LAB HEMETOLOGY METHOD 07/13/2024 7:14 AM EST [facility] Blood Venous blood specimen / Unknown Venipuncture / Unknown 07/13/2024 6:38 AM EST 07/13/2024 6:51 AM EST us Kwesi Guido MD LAB BLOOD ORDERABLES F inal Result Performing Organization Address City/[facility]/ZIP Co de Phone Number [facility] [address] [place] [address], [place] [phone] * Phosphorus (07/13/2024 6:38 AM EST) Phosphorus 3.0 2.5 - 4.5 mg/dL LAB CHEMISTRY METHOD 07/13/2024 7:[address] [facility] Blood Venous blood specimen / Unknown Venipuncture / Unknown 07/13/2024 6:38 AM EST 07/13/2024 6:50 AM EST us Kwesi Guido MD LAB BLOOD ORDERABLES F inal Result [facility] [address] [place] [address], [place] [phone] * Magnesium (07/13/2024 6:38 AM EST) Magnesium 1.9 1.9 - 2.6 mg/dL LAB CHEMISTRY METHOD 07/13/2024 7:44 AM EST [facility] Blood Venous blood specimen / Unknown Venipuncture / Unknown 07/13/2024 6:38 AM EST 07/13/2024 6:50 AM EST us Kwesi Guido MD LAB BLOOD ORDERABLES F inal Result [facility] [address] [place] [address], * (ABNORMAL) Basic metabolic panel (07/13/2024 6:38 AM EST) Sodium 132(L) 133 - 145 mmol/L LAB CHEMISTRY METHOD 07/13/2024 7:[address] [facility] Potassium 3.6 3.5 - 5.5 mmol/L LAB CHEMISTRY METHOD 07/13/2024 7:[address] [facility] Chloride 104 96 - 110 mmol/L LAB CHEMISTRY METHOD 07/13/2024 7:[address] [facility] CO2 18(L) 21 - 32 mmol/L LAB CHEMISTRY METHOD 07/13/2024 7:[address] [facility] Anion Gap 10 3 - 11 LAB CHEMISTRY METHOD 07/13/2024 7:[address] [facility] Glucose 71 70 - 100 mg/dL LAB CHEMISTRY METHOD 07/13/2024 7:[address] [facility] BUN 73(H) 5 - 25 mg/dL LAB CHEMISTRY METHOD 07/13/2024 7:[address] [facility] Creatinine 5.13(H) 0.50 - 1.10 mg/dL LAB CHEMISTRY METHOD 07/13/2024 7:[address] [facility] LAB eGFR 8(L) >=60 mL/min/1. 73m2 LAB CHEMISTRY METHOD 07/13/2024 7:[address] [facility] LAB Comment:Calculation based on the??Chronic Kidney Disease Epidemiology Collaboration (CKD-EPI) equation refit??without adjustment for race. BUN/Creatinine Ratio 14.2 LAB CHEMISTRY METHOD 07/13/2024 7:57 AM EST [facility] Calcium 8.1(L) 8.5 - 10.5 mg/dL LAB CHEMISTRY METHOD 07/13/2024 7:57 AM EST [facility] Blood Venous blood specimen / Unknown Venipuncture / Unknown 07/13/2024 6:38 AM EST 07/13/2024 6:50 AM EST Kwesi Guido MD LAB BLOOD ORDERABLES F inal Result Performing Organization Address City/[facility]/ZIP Co de Phone Number [facility] [address] [place] [address], [place] [phone] * Uric acid (07/13/2024 6:38 AM EST) Uric Acid 7.5 3.1 - 7.8 mg/dL LAB CHEMISTRY METHOD 07/13/2024 7:44 AM EST [facility] Blood Venous blood specimen / Unknown Venipuncture / Unknown 07/13/2024 6:38 AM EST 07/13/2024 6:50 AM EST Chencho Wayne MD LAB BLOOD ORDERABLES Final Resu lt [facility] [address] [place] [address], [place] [phone] * (ABNORMAL) Sedimentation rate (07/13/2024 6:38 AM EST) Sed Rate 84(H) 0 - 30 mm/hr LAB HEMETOLOGY METHOD 07/13/2024 7:32 AM EST [facility] Blood Venous blood specimen / Unknown Venipuncture / Unknown 07/13/2024 6:38 AM EST 07/13/2024 6:51 AM EST us Kwesi Guido MD LAB BLOOD ORDERABLES F inal Result Performing Organization Address [facility] Co de Phone Number [facility] [address] [place] [address], [place] [phone] * (ABNORMAL) POCT Glucose, blood (07/12/2024 8:06 PM EST) Glucose POCT 125(H) 70 - 100 mg/dL 07/12/2024 8:08 PM EST [facility] Blood Capillary blood specimen / Unknown 07/12/2024 8:06 PM EST 07/12/2024 8:09 PM EST us Kwesi Guido MD LAB POINT OF C ARE TEST DOCKED DEVICE UNSOLICITED RESULTS Final Result Performing Organization Address [facility] Co de Phone Number [facility] [address] [place] [address], [place] [phone] * (ABNORMAL) POCT Glucose, blood (07/12/2024 3:53 PM EST) [facility] Glucose POCT 143(H) 70 - 100 mg/dL 07/12/2024 3:57 PM EST [facility] Blood Capillary blood specimen / Unknown 07/12/2024 3:53 PM EST 07/12/2024 3:59 PM EST us Kwesi Guido MD LAB POINT OF C ARE TEST DOCKED DEVICE UNSOLICITED RESULTS Final Result Performing Organization Address [facility] Co de Phone Number [facility] [address] [place] [address], [place] [phone] * (ABNORMAL) Protein and creatinine with ratio, [...] ORDERABLES Final Resu lt Performing Organization Address City/[facility]/ZIP Co de Phone Number [facility] [address] [place] [address], [place] [phone] * Creatinine, urine, random (07/12/2024 3:27 PM EST) Creatinine, Urine 64.0 mg/dL LAB CHEMISTRY METHOD 07/12/2024 4:41 PM EST [facility] Urine Urine specimen from urethra / Unknown Non-blood Collection / Unknown 07/12/2024 3:27 PM EST 07/12/2024 4:11 PM EST us Chencho Wayne MD LAB URINE ORDERABLES Final Resu lt [facility] [address] [place] [address], [place] [phone] * Sodium, urine, random (07/12/2024 3:27 PM EST) Sodium, Ur 34 mmol/L LAB CHEMISTRY METHOD 07/12/2024 6:44 PM EST [facility] Urine Urine specimen obtained by clean catch procedure / Unknown Non-blood Collection / Unknown 07/12/2024 3:27 PM EST 07/12/2024 4:10 PM EST Aye HEDRICK LAB URINE ORDERABLES Final Re sult Performing Organization Address [facility]/ZIP Co de Phone Number [facility] [address] [place] [address], [place] [phone] * Osmolality, urine (07/12/2024 3:27 PM EST) Osmolality, Urine 397 300 - 1,300 mOsm/kg LAB CHEMISTRY METHOD 07/12/2024 5:57 PM EST [facility] Urine Urine specimen obtained by clean catch procedure / Unknown Non-blood Collection / Unknown 07/12/2024 3:27 PM EST 07/12/2024 4:10 PM EST Aye HEDRICK LAB URINE ORDERABLES Final Re sult Performing Organization Address [facility] de Phone Number [facility] [address] [place] [address], [place] [phone] * CT Chest wo Contrast (07/12/2024 12:48 PM EST) Anatomical Region Laterality Modality Body Computed Tomogra phy 07/12/2024 1:07 PM EST Impressions 07/12/2024 1:19 PM EST Impression: 1. No significant change in an irregular juxtapleural nodular opacity in the right lung apex. Malignancy is not excluded. 2. No developing lymphadenopathy. 3. Small bilateral pleural effusions, new. Starr HEDRICK ([id number]) -------- FINAL REPORT -------- Dictated By: Edilia Durbin Dictated Date: 07/12/2024 13:07 ET Assigned Physician: Edilia Durbin Reviewed and Electronically Signed By: Edilia Durbin Signed Date: 07/12/2024 13:19 ET Workstation ID: [id number] Transcribed By: Self Edit Transcribed Date: 07/12/2024 13:07 ET Narrative 07/12/2024 1:19 PM EST History: Abnormal chest radiograph. The patient underwent nondiagnostic CT- guided biopsy of the right apical lung nodule on 05/23/24. Comparison: Thoracic CT 06/17/24, 03/21/24 Technique: Helical volumetric imaging of the thorax was performed without IV contrast. DLP: 613.10 mGy/cm GE [employer] VCT Iterative reconstruction technique Findings: Respiratory motion [...] performed withoutIV contrast. DLP: 613.10 mGy/cm GE [employer] VCT Iterative reconstruction technique Findings: Respiratory motion [...] 3. Small bilateral pleural effusions, [place] ([id number]) -------- FINAL REPORT -------- Dictated By: Edilia Durbin Dictated Date: 07/12/2024 13:07 ET Assigned Physician: Edilia Durbin Reviewed and Electronically Signed By: Edilia Durbin Signed Date: 07/12/2024 13:19 ET Workstation ID: [id number] Transcribed By: Self Edit Transcribed Date: 07/12/2024 13:07 ET us Kwesi Guido MD IMG CT PROCEDURES [place] Result * (ABNORMAL) POCT Glucose, blood (07/12/2024 11:48 AM EST) Glucose POCT 176(H) 70 - 100 mg/dL 07/12/2024 11:49 AM EST VICENTE SORTO [place] ([facility]) [facility] Blood Capillary blood specimen / Unknown 07/12/2024 11:48 AM EST 07/12/2024 11:50 AM EST us Kwesi Guido MD LAB POINT OF C ARE TEST DOCKED DEVICE UNSOLICITED RESULTS Final Result [facility] [address] [place] [address], [place] [phone] * (ABNORMAL) POCT Glucose, blood (07/12/2024 8:07 AM EST) [facility] Glucose POCT 166(H) 70 - 100 mg/dL 07/12/2024 8:31 AM EST [facility] Blood Capillary blood specimen / Unknown 07/12/2024 8:07 AM EST 07/12/2024 8:32 AM EST us Kwesi Guido MD LAB POINT OF C ARE TEST DOCKED DEVICE UNSOLICITED RESULTS Final Result [facility] [address] [place] [address], [place] [phone] * (ABNORMAL) Lipase (07/12/2024 6:19 AM EST) [facility] Lipase <10(L) 13 - 75 unit/L LAB CHEMISTRY METHOD 07/12/2024 3:26 PM EST [facility] Blood Venous blood specimen / Unknown Venipuncture / Unknown 07/12/2024 6:19 AM EST 07/12/2024 6:56 AM EST us Kwesi Guido MD LAB BLOOD ORDERABLES F inal Result [facility] [address] [place] [address], [place] [phone] * (ABNORMAL) Hepatic function panel (07/12/2024 6:19 AM EST) [facility] Total Protein 4.9(L) 6.0 - 8.0 g/dL LAB CHEMISTRY METHOD 07/12/2024 3:26 PM EST [facility] Albumin 1.5(L) 3.2 - 5.0 g/dL LAB CHEMISTRY METHOD 07/12/2024 3:[address] [facility] Total Bilirubin 0.5 0.0 - 1.4 mg/dL LAB CHEMISTRY METHOD 07/12/2024 3:[address] [facility] Bilirubin, Direct 0.2 0.0 - 0.3 mg/dL LAB CHEMISTRY METHOD 07/12/2024 3:[address] [facility] Bilirubin, Indirect 0.3 0.0 - 1.1 mg/dL LAB CHEMISTRY METHOD 07/12/2024 3:[address] [facility] ALT (SGPT) 37 10 - 60 unit/L LAB CHEMISTRY METHOD 07/12/2024 3:[address] [facility] AST (SGOT) 32 10 - 42 unit/L LAB CHEMISTRY METHOD 07/12/2024 3:[address] [facility] Alkaline Phosphatase 157(H) 42 - 121 unit/L LAB CHEMISTRY METHOD 07/12/2024 3:[address] [facility] Blood Venous blood specimen / Unknown Venipuncture / Unknown 07/12/2024 6:19 AM EST 07/12/2024 6:56 AM EST Kwesi Guido MD LAB BLOOD ORDERABLES F inal Result [facility] [address] [place] [address], * (ABNORMAL) Procalcitonin (07/12/2024 6:19 AM EST) Procalcitonin 3.11(H) <=0.16 ng/mL LAB CHEMISTRY METHOD 07/12/2024 12:[address] [facility] Blood Venous blood specimen / [...] ORDERABLES F inal Result Performing Organization Address [facility]/ZIP Co de Phone Number [facility] [address] [place] [address], [place] [phone] * (ABNORMAL) C-reactive protein (07/12/2024 6:19 AM EST) C-Reactive Protein 16.60(H) <=0.50 mg/dL LAB CHEMISTRY METHOD 07/12/2024 10:35 AM EST [facility] Blood Venous blood specimen / Unknown Venipuncture / Unknown 07/12/2024 6:19 AM EST 07/12/2024 6:56 AM EST us Kwesi Guido MD LAB BLOOD ORDERABLES F inal Result Performing Organization Address [facility]/ZIP Co de Phone Number [facility] [address] [place] [address], [place] [phone] * (ABNORMAL) CBC auto differential (07/12/2024 6:19 AM EST) [facility] WBC 21.8(H) 4.8 - 10.8 K/mcL LAB HEMETOLOGY METHOD 07/12/2024 7:[address] [facility] RBC 3.10(L) 3.80 - 4.80 M/mcL LAB HEMETOLOGY METHOD 07/12/2024 7:[address] [facility] Hemoglobin 7.2(L) 11.5 - 16.0 g/dL LAB HEMETOLOGY METHOD 07/12/2024 7:[address] [facility] Hematocrit 22.6(L) 35.0 - 47.0 % LAB HEMETOLOGY METHOD 07/12/2024 7:[address] [facility] MCV 74.1(L) 79.0 - 98.0 FL LAB HEMETOLOGY METHOD 07/12/2024 7:[address] [facility] MCH 23.6(L) 27.0 - 32.0 pcg LAB HEMETOLOGY METHOD 07/12/2024 7:[address] [facility] MCHC 31.9(L) 32.0 - 37.0 g/dL LAB HEMETOLOGY METHOD 07/12/2024 7:[address] [facility] RDW 21.0(H) 11.0 - 15.0 % LAB HEMETOLOGY METHOD 07/12/2024 7:[address] [facility] Platelets 206 130 - 400 K/mcL LAB HEMETOLOGY METHOD 07/12/2024 7:[address] [facility] MPV 9.6 7.0 - 11.0 FL LAB HEMETOLOGY METHOD 07/12/2024 7:[address] [facility] NRBC 0.0 <1.0 % LAB HEMETOLOGY METHOD 07/12/2024 7:[address] [facility] NRBC Absolute 0.00 <0.10 K/mcL LAB HEMETOLOGY METHOD 07/12/2024 7:[address] [facility] Neutrophils Relative 86.5 % LAB HEMETOLOGY METHOD 07/12/2024 7:[address] [facility] Lymphocytes Relative 2.7 % LAB HEMETOLOGY METHOD 07/12/2024 7:[address] [facility] Monocytes Relative 5.8 % LAB HEMETOLOGY METHOD 07/12/2024 7:[address] [facility] Eosinophils Relative 2.8 % LAB HEMETOLOGY METHOD 07/12/2024 7:[address] [facility] Basophils Relative 0.2 % LAB HEMETOLOGY METHOD 07/12/2024 7:[address] [facility] Immature Granulocytes Relative 2.0 % LAB HEMETOLOGY METHOD 07/12/2024 7:[address] [facility] Neutrophils Absolute 18.89(H) 1.50 - 7.00 K/mcL LAB HEMETOLOGY METHOD 07/12/2024 7:[address] [facility] Lymphocytes Absolute 0.59(L) 1.00 - 5.00 K/mcL LAB HEMETOLOGY METHOD 07/12/2024 7:[address] [facility] Monocytes Absolute 1.27(H) 0.20 - 1.00 K/mcL LAB HEMETOLOGY METHOD 07/12/2024 7:[address] [facility] Eosinophils Absolute 0.62(H) 0.00 - 0.50 K/mcL LAB HEMETOLOGY METHOD 07/12/2024 7:[address] [facility] Basophils Absolute 0.04 0.00 - 0.20 K/mcL LAB HEMETOLOGY METHOD 07/12/2024 7:[address] [facility] Immature Granulocytes Absolute 0.43(H) 0.00 - 0.03 K/mcL LAB HEMETOLOGY METHOD 07/12/2024 7:08 AM EST [facility] Blood Venous blood specimen / Unknown Venipuncture / Unknown 07/12/2024 6:19 AM EST 07/12/2024 6:58 AM EST us Kwesi Guido MD LAB BLOOD ORDERABLES F inal Result Performing Organization Address City/[facility]/ZIP Co de Phone Number [facility] [address] [place] [address], [place] [phone] * Phosphorus (07/12/2024 6:19 AM EST) Phosphorus 2.9 2.5 - 4.5 mg/dL LAB CHEMISTRY METHOD 07/12/2024 7:48 AM EST [facility] Blood Venous blood specimen / Unknown Venipuncture / Unknown 07/12/2024 6:19 AM EST 07/12/2024 6:56 AM EST us Kwesi Guido MD LAB BLOOD ORDERABLES F inal Result Performing Organization Address [facility]/ZIP Co de Phone Number [facility] [address] [place] [address], [place] [phone] * (ABNORMAL) Magnesium (07/12/2024 6:19 AM EST) Magnesium 1.8(L) 1.9 - 2.6 mg/dL LAB CHEMISTRY METHOD 07/12/2024 7:48 AM EST [facility] Blood Venous blood specimen / Unknown Venipuncture / Unknown 07/12/2024 6:19 AM EST 07/12/2024 6:56 AM EST us Kwesi Guido MD LAB BLOOD ORDERABLES F inal Result Performing Organization Address City/[facility]/ZIP Co de Phone Number [facility] [address] [place] [address], * (ABNORMAL) Basic metabolic panel (07/12/2024 6:19 AM EST) Sodium 132(L) 133 - 145 mmol/L LAB CHEMISTRY METHOD 07/12/2024 7:[address] [facility] Potassium 3.7 3.5 - 5.5 mmol/L LAB CHEMISTRY METHOD 07/12/2024 7:[address] [facility] Chloride 102 96 - 110 mmol/L LAB CHEMISTRY METHOD 07/12/2024 7:[address] [facility] CO2 18(L) 21 - 32 mmol/L LAB CHEMISTRY METHOD 07/12/2024 7:[address] [facility] Anion Gap 12(H) 3 - 11 LAB CHEMISTRY METHOD 07/12/2024 7:[address] [facility] Glucose 132(H) 70 - 100 mg/dL LAB CHEMISTRY METHOD 07/12/2024 7:[address] [facility] BUN 70(H) 5 - 25 mg/dL LAB CHEMISTRY METHOD 07/12/2024 7:[address] [facility] Creatinine 4.64(H) 0.50 - 1.10 mg/dL LAB CHEMISTRY METHOD 07/12/2024 7:[address] [facility] eGFR 9(L) >=60 mL/min/1. 73m2 LAB CHEMISTRY METHOD 07/12/2024 7:[address] [facility] Comment:Calculation based on the??Chronic Kidney Disease Epidemiology Collaboration (CKD-EPI) equation refit??without adjustment for race. BUN/Creatinine Ratio 15.1 LAB CHEMISTRY METHOD 07/12/2024 7:[address] [facility] Calcium 8.1(L) 8.5 - 10.5 mg/dL LAB CHEMISTRY METHOD 07/12/2024 7:[address] [facility] Blood Venous blood specimen / Unknown Venipuncture / Unknown 07/12/2024 6:19 AM EST 07/12/2024 6:56 AM EST us Kwesi Guido MD LAB BLOOD ORDERABLES F inal Result [facility] [address] [place] [address], [place] [phone] * (ABNORMAL) POCT Glucose, blood (07/11/2024 8:03 PM EST) Glucose POCT 257(H) 70 - 100 mg/dL 07/11/2024 8:04 PM EST [facility] POCT Comment RN Notified 07/11/2024 8:04 PM EST [facility] Blood Capillary blood specimen / Unknown 07/11/2024 8:03 PM EST 07/11/2024 8:05 PM EST us Kwesi Guido MD LAB POINT OF C ARE TEST DOCKED DEVICE UNSOLICITED RESULTS Final Result Performing Organization Address [facility] Co de Phone Number [facility] [address] [place] [address], [place] [phone] * (ABNORMAL) POCT Glucose, blood (07/11/2024 3:51 PM EST) Glucose POCT 259(H) 70 - 100 mg/dL 07/11/2024 3:51 PM EST [facility] Blood Capillary blood specimen / Unknown 07/11/2024 3:51 PM EST 07/11/2024 3:52 PM EST us Kwesi Guido MD LAB POINT OF C ARE TEST DOCKED DEVICE UNSOLICITED RESULTS Final Result Performing Organization Address City/[facility]/ZIP Co de Phone Number [facility] [address] [place] [address], [place] [phone] * (ABNORMAL) POCT Glucose, blood (07/11/2024 11:10 AM EST) Glucose POCT 301(H) 70 - 100 mg/dL 07/11/2024 11:11 AM EST [facility] Blood Capillary blood specimen / Unknown 07/11/2024 11:10 AM EST 07/11/2024 11:13 AM EST us Kwesi Guido MD LAB POINT OF ARE TEST DOCKED DEVICE UNSOLICITED RESULTS Final Result [facility] [address] [place] [address], [place] [phone] * (ABNORMAL) POCT Glucose, blood (07/11/2024 8:17 AM EST) Glucose POCT 191(H) 70 - 100 mg/dL 07/11/2024 8:17 AM EST [facility] Blood Capillary blood specimen / Unknown 07/11/2024 8:17 AM EST 07/11/2024 8:19 AM EST us Kwesi Guido MD LAB POINT OF ARE TEST DOCKED DEVICE UNSOLICITED RESULTS Final Result [facility] [address] [place] [address], [place] [phone] * Pathologist Review Immunofixation (07/11/2024 6:21 AM EST) Pathologist Interpretation Reviewed by Rosenda Galeana MD 07/13/2024 4:13 PM EST [facility] Blood Venous blood specimen / Unknown Venipuncture / Unknown 07/11/2024 6:21 AM EST 07/11/2024 6:43 AM EST us Chencho Wayne MD LAB BLOOD ORDERABLES Final Resu lt Performing Organization Address City/[facility] Co de Phone Number [facility] [address] [place] [address], [place] [phone] * (ABNORMAL) Hepatic function panel (07/11/2024 6:21 AM EST) Total Protein 5.1(L) 6.0 - 8.0 g/dL LAB CHEMISTRY METHOD 07/12/2024 3:26 PM EST [facility] Albumin 1.5(L) 3.2 - 5.0 g/dL LAB CHEMISTRY METHOD 07/12/2024 3:[address] [facility] Total Bilirubin 0.6 0.0 - 1.4 mg/dL LAB CHEMISTRY METHOD 07/12/2024 3:[address] [facility] Bilirubin, Direct 0.3 0.0 - 0.3 mg/dL LAB CHEMISTRY METHOD 07/12/2024 3:[address] [facility] Bilirubin, Indirect 0.3 0.0 - 1.1 mg/dL LAB CHEMISTRY METHOD 07/12/2024 3:[address] [facility] ALT (SGPT) 39 10 - 60 unit/L LAB CHEMISTRY METHOD 07/12/2024 3:[address] [facility] AST (SGOT) 36 10 - 42 unit/L LAB CHEMISTRY METHOD 07/12/2024 3:[address] [facility] Alkaline Phosphatase 168(H) 42 - 121 unit/L LAB CHEMISTRY METHOD 07/12/2024 3:[address] [facility] Blood Venous blood specimen / Unknown Venipuncture / Unknown 07/11/2024 6:21 AM EST 07/11/2024 6:42 AM EST Kwesi Guido MD LAB BLOOD ORDERABLES F inal Result Performing Organization Address [facility]/ZIP Co de Phone Number [facility] [address] [place] [address], [place] [phone] * Immunoglobulins IgG, IgA, IgM (07/11/2024 6:21 AM EST) Pathologist [facility] Total IgG 1,090 549 - 1,584 mg/dL [...] ORDERABLES Final Resu lt Performing Organization Address [facility] Co de Phone Number [facility] [address] [place] [address], [place] [phone] * Immunofixation electrophoresis serum (07/11/2024 6:21 AM EST) [facility] Immunofixation Result, Serum Faint restriction of IgG [place], not observed on SPEP . Follow-up in 6 months if clinically indicated. LAB CHEMISTRY METHOD 07/13/2024 4:13 PM EST [facility] Blood Venous blood specimen / Unknown Venipuncture / Unknown 07/11/2024 6:21 AM EST 07/11/2024 6:43 AM EST us Chencho Wayne MD LAB BLOOD ORDERABLES Final Resu lt Performing Organization Address City/[facility]/ZIP Co de Phone Number [facility] [address] [place] [address], [place] [phone] * (ABNORMAL) CBC auto differential (07/11/2024 6:21 AM EST) [facility] WBC 18.4(H) 4.8 - 10.8 K/mcL LAB HEMETOLOGY METHOD 07/11/2024 6:[address] [facility] RBC 3.20(L) 3.80 - 4.80 M/mcL LAB HEMETOLOGY METHOD 07/11/2024 6:[address] [facility] Hemoglobin 7.4(L) 11.5 - 16.0 g/dL LAB HEMETOLOGY METHOD 07/11/2024 6:[address] [facility] Hematocrit 23.7(L) 35.0 - 47.0 % LAB HEMETOLOGY METHOD 07/11/2024 6:[address] [facility] MCV 75.0(L) 79.0 - 98.0 FL LAB HEMETOLOGY METHOD 07/11/2024 6:[address] [facility] MCH 23.4(L) 27.0 - 32.0 pcg LAB HEMETOLOGY METHOD 07/11/2024 6:[address] [facility] MCHC 31.2(L) 32.0 - 37.0 g/dL LAB HEMETOLOGY METHOD 07/11/2024 6:[address] [facility] RDW 20.2(H) 11.0 - 15.0 % LAB HEMETOLOGY METHOD 07/11/2024 6:[address] [facility] Platelets 211 130 - 400 K/mcL LAB HEMETOLOGY METHOD 07/11/2024 6:[address] [facility] MPV 9.1 7.0 - 11.0 FL LAB HEMETOLOGY METHOD 07/11/2024 6:[address] [facility] NRBC 0.0 <1.0 % LAB HEMETOLOGY METHOD 07/11/2024 6:[address] [facility] NRBC Absolute 0.00 <0.10 K/mcL LAB HEMETOLOGY METHOD 07/11/2024 6:[address] [facility] Neutrophils Relative 86.2 % LAB HEMETOLOGY METHOD 07/11/2024 6:[address] [facility] Lymphocytes Relative 3.0 % LAB HEMETOLOGY METHOD 07/11/2024 6:[address] [facility] Monocytes Relative 5.9 % LAB HEMETOLOGY METHOD 07/11/2024 6:[address] [facility] Eosinophils Relative 3.3 % LAB HEMETOLOGY METHOD 07/11/2024 6:[address] [facility] Basophils Relative 0.2 % LAB HEMETOLOGY METHOD 07/11/2024 6:[address] [facility] Immature Granulocytes Relative 1.4 % LAB HEMETOLOGY METHOD 07/11/2024 6:[address] [facility] Neutrophils Absolute 15.84(H) 1.50 - 7.00 K/mcL LAB HEMETOLOGY METHOD 07/11/2024 6:[address] [facility] Lymphocytes Absolute 0.56(L) 1.00 - 5.00 K/mcL LAB HEMETOLOGY METHOD 07/11/2024 6:[address] [facility] Monocytes Absolute 1.09(H) 0.20 - 1.00 K/mcL LAB HEMETOLOGY METHOD 07/11/2024 6:[address] [facility] Eosinophils Absolute 0.61(H) 0.00 - 0.50 K/mcL LAB HEMETOLOGY METHOD 07/11/2024 6:[address] [facility] Basophils Absolute 0.04 0.00 - 0.20 K/mcL LAB HEMETOLOGY METHOD 07/11/2024 6:[address] [facility] Immature Granulocytes Absolute 0.26(H) 0.00 - 0.03 K/mcL LAB HEMETOLOGY METHOD 07/11/2024 6:[address] [facility] Blood Venous blood specimen / Unknown Venipuncture / Unknown 07/11/2024 6:21 AM EST 07/11/2024 6:41 AM EST us Maria Alejandra Melendez MD LAB BLOOD ORDERABLES Final Res ult [facility] [address] [place] [address], * (ABNORMAL) Basic metabolic panel (07/11/2024 6:21 AM EST) Sodium 130(L) 133 - 145 mmol/L LAB CHEMISTRY METHOD 07/11/2024 7:[address] [facility] Potassium 3.7 3.5 - 5.5 mmol/L LAB CHEMISTRY METHOD 07/11/2024 7:[address] [facility] Chloride 102 96 - 110 mmol/L LAB CHEMISTRY METHOD 07/11/2024 7:[address] [facility] CO2 19(L) 21 - 32 mmol/L LAB CHEMISTRY METHOD 07/11/2024 7:[address] [facility] Anion Gap 9 3 - 11 LAB CHEMISTRY METHOD 07/11/2024 7:[address] [facility] Glucose 174(H) 70 - 100 mg/dL LAB CHEMISTRY METHOD 07/11/2024 7:[address] [facility] BUN 69(H) 5 - 25 mg/dL LAB CHEMISTRY METHOD 07/11/2024 7:[address] [facility] Creatinine 4.36(H) 0.50 - 1.10 mg/dL LAB CHEMISTRY METHOD 07/11/2024 7:[address] [facility] eGFR 10(L) >=60 mL/min/1. 73m2 LAB CHEMISTRY METHOD 07/11/2024 7:[address] [facility] Comment:Calculation based on the??Chronic Kidney Disease Epidemiology Collaboration (CKD-EPI) equation refit??without adjustment for race. BUN/Creatinine Ratio 15.8 LAB CHEMISTRY METHOD 07/11/2024 7:27 AM EST [facility] Calcium 8.2(L) 8.5 - 10.5 mg/dL LAB CHEMISTRY METHOD 07/11/2024 7:27 AM EST [facility] Blood Venous blood specimen / Unknown Venipuncture / Unknown 07/11/2024 6:21 AM EST 07/11/2024 6:42 AM EST Maria Alejandra Melendez MD LAB BLOOD ORDERABLES Final Res ult [facility] [address] [place] [address], [place] [phone] * (ABNORMAL) POCT Glucose, blood (07/10/2024 8:33 PM EST) Glucose POCT 325(H) 70 - 100 mg/dL 07/10/2024 8:34 PM EST [facility] Blood Capillary blood specimen / Unknown 07/10/2024 8:33 PM EST 07/10/2024 8:35 PM EST Maria Alejandra Melendez MD LAB POINT OF CARE TE ST DOCKED DEVICE UNSOLICITED RESULTS Final Result [facility] [address] [place] [address], [place] [phone] * (ABNORMAL) POCT Glucose, blood (07/10/2024 4:11 PM EST) Glucose POCT 287(H) 70 - 100 mg/dL 07/10/2024 4:12 PM EST [facility] Blood Capillary blood specimen / Unknown 07/10/2024 4:11 PM EST 07/10/2024 4:13 PM EST Maria Alejandra Melendez MD LAB POINT OF CARE TE ST DOCKED DEVICE UNSOLICITED RESULTS Final Result Performing Organization Address [facility]/ZIP Co de Phone Number [facility] [address] [place] [address], [place] [phone] * (ABNORMAL) POCT Glucose, blood (07/10/2024 11:29 AM EST) Glucose POCT 214(H) 70 - 100 mg/dL 07/10/2024 11:45 AM EST [facility] Blood Capillary blood specimen / Unknown 07/10/2024 11:29 AM EST 07/10/2024 11:47 AM EST us Maria Alejandra Melendez MD LAB POINT OF CARE TE ST DOCKED DEVICE UNSOLICITED RESULTS Final Result Performing Organization Address [facility]/ZIP Co de Phone Number [facility] [address] [place] [address], [place] [phone] * (ABNORMAL) POCT Glucose, blood (07/10/2024 8:40 AM EST) Glucose POCT 164(H) 70 - 100 mg/dL 07/10/2024 8:42 AM EST [facility] Blood Capillary blood specimen / Unknown 07/10/2024 8:40 AM EST 07/10/2024 8:43 AM EST us Maria Alejandra Melendez MD LAB POINT OF CARE TE ST DOCKED DEVICE UNSOLICITED RESULTS Final Result Performing Organization Address City/[facility]/ZIP Co de Phone Number [facility] [address] [place] [address], [place] [phone] * (ABNORMAL) Triiodothyronine free (07/10/2024 5:16 AM EST) T3, Free 154(L) 230 - 420 pcg/dL LAB CHEMISTRY METHOD 07/10/2024 2:10 PM EST [facility] Blood Venous blood specimen / Unknown Venipuncture / Unknown 07/10/2024 5:16 AM EST 07/10/2024 6:42 AM EST us Maria Alejandra Melendez MD LAB BLOOD ORDERABLES Final Res ult Performing Organization Address [facility]/ZIP Co de Phone Number [facility] [address] [place] [address], [place] [phone] * Thyroxine free (07/10/2024 5:16 AM EST) Free T4 0.92 0.70 - 1.80 ng/dL LAB CHEMISTRY METHOD 07/10/2024 2:04 PM EST [facility] Blood Venous blood specimen / Unknown Venipuncture / Unknown 07/10/2024 5:16 AM EST 07/10/2024 6:42 AM EST us Maria Alejandra Melendez MD LAB BLOOD ORDERABLES Final Res ult Performing Organization Address [facility]/ZIP Co de Phone Number [facility] [address] [place] [address], [place] [phone] * (ABNORMAL) Parathyroid hormone intact (07/10/2024 5:16 AM EST) PTH 10.5(L) 18.5 - 88.0 pcg/mL LAB CHEMISTRY METHOD 07/10/2024 1:47 PM EST [facility] Blood Venous blood specimen / Unknown Venipuncture / Unknown 07/10/2024 5:16 AM EST 07/10/2024 6:42 AM EST us Maria Alejandra Melendez MD LAB BLOOD ORDERABLES Final Res ult [facility] [address] [place] [address], * (ABNORMAL) CBC auto differential (07/10/2024 5:16 AM EST) [facility] WBC 16.9(H) 4.8 - 10.8 K/mcL LAB HEMETOLOGY METHOD 07/10/2024 7:[address] [facility] RBC 3.30(L) 3.80 - 4.80 M/mcL LAB HEMETOLOGY METHOD 07/10/2024 7:[address] [facility] Hemoglobin 7.6(L) 11.5 - 16.0 g/dL LAB HEMETOLOGY METHOD 07/10/2024 7:[address] [facility] Hematocrit 24.4(L) 35.0 - 47.0 % LAB HEMETOLOGY METHOD 07/10/2024 7:[address] [facility] MCV 74.4(L) 79.0 - 98.0 FL LAB HEMETOLOGY METHOD 07/10/2024 7:[address] [facility] MCH 23.2(L) 27.0 - 32.0 pcg LAB HEMETOLOGY METHOD 07/10/2024 7:[address] [facility] MCHC 31.1(L) 32.0 - 37.0 g/dL LAB HEMETOLOGY METHOD 07/10/2024 7:[address] [facility] RDW 19.8(H) 11.0 - 15.0 % LAB HEMETOLOGY METHOD 07/10/2024 7:[address] [facility] Platelets 277 130 - 400 K/mcL LAB HEMETOLOGY METHOD 07/10/2024 7:[address] [facility] MPV 9.1 7.0 - 11.0 FL LAB HEMETOLOGY METHOD 07/10/2024 7:[address] [facility] NRBC 0.0 <1.0 % LAB HEMETOLOGY METHOD 07/10/2024 7:[address] [facility] NRBC Absolute 0.00 <0.10 K/mcL LAB HEMETOLOGY METHOD 07/10/2024 7:[address] [facility] Neutrophils Relative 86.9 % LAB HEMETOLOGY METHOD 07/10/2024 7:[address] [facility] Lymphocytes Relative 3.2 % LAB HEMETOLOGY METHOD 07/10/2024 7:[address] [facility] Monocytes Relative 5.9 % LAB HEMETOLOGY METHOD 07/10/2024 7:[address] [facility] Eosinophils Relative 2.8 % LAB HEMETOLOGY METHOD 07/10/2024 7:[address] [facility] Basophils Relative 0.2 % LAB HEMETOLOGY METHOD 07/10/2024 7:[address] [facility] Immature Granulocytes Relative 1.0 % LAB HEMETOLOGY METHOD 07/10/2024 7:[address] [facility] Neutrophils Absolute 14.72(H) 1.50 - 7.00 K/mcL LAB HEMETOLOGY METHOD 07/10/2024 7:[address] [facility] Lymphocytes Absolute 0.54(L) 1.00 - 5.00 K/mcL LAB HEMETOLOGY METHOD 07/10/2024 7:[address] [facility] Monocytes Absolute 1.00 0.20 - 1.00 K/mcL LAB HEMETOLOGY METHOD 07/10/2024 7:[address] [facility] Eosinophils Absolute 0.47 0.00 - 0.50 K/mcL LAB HEMETOLOGY METHOD 07/10/2024 7:[address] [facility] Basophils Absolute 0.04 0.00 - 0.20 K/mcL LAB HEMETOLOGY METHOD 07/10/2024 7:[address] [facility] Immature Granulocytes Absolute 0.17(H) 0.00 - 0.03 K/mcL LAB HEMETOLOGY METHOD 07/10/2024 7:29 AM EST [facility] Blood Venous blood specimen / Unknown Venipuncture / Unknown 07/10/2024 5:16 AM EST 07/10/2024 6:43 AM EST Maria Alejandra Melendez MD LAB BLOOD ORDERABLES Final Res ult Performing Organization Address [facility]/ZIP Co de Phone Number [facility] [address] [place] [address], [place] [phone] * (ABNORMAL) Magnesium (07/10/2024 5:16 AM EST) Pathologist [facility] Magnesium 1.8(L) 1.9 - 2.6 mg/dL LAB CHEMISTRY METHOD 07/10/2024 7:38 AM EST [facility] Blood Venous blood specimen / Unknown Venipuncture / Unknown 07/10/2024 5:16 AM EST 07/10/2024 6:42 AM EST Maria Alejandra Melendez MD LAB BLOOD ORDERABLES Final Res ult Performing Organization Address [facility] Co de Phone Number [facility] [address] [place] [address], [place] [phone] * (ABNORMAL) Basic metabolic panel (07/10/2024 5:16 AM EST) Sodium 133 133 - 145 mmol/L LAB CHEMISTRY METHOD 07/10/2024 7:39 AM EST [facility] Potassium 3.8 3.5 - 5.5 mmol/L LAB CHEMISTRY METHOD 07/10/2024 7:39 AM EST [facility] Chloride 105 96 - 110 mmol/L LAB CHEMISTRY METHOD 07/10/2024 7:39 AM EST [facility] CO2 20(L) 21 - 32 mmol/L LAB CHEMISTRY METHOD 07/10/2024 7:[address] [facility] Anion Gap 8 3 - 11 LAB CHEMISTRY METHOD 07/10/2024 7:[address] [facility] Glucose 167(H) 70 - 100 mg/dL LAB CHEMISTRY METHOD 07/10/2024 7:[address] [facility] BUN 65(H) 5 - 25 mg/dL LAB CHEMISTRY METHOD 07/10/2024 7:[address] [facility] Creatinine 4.19(H) 0.50 - 1.10 mg/dL LAB CHEMISTRY METHOD 07/10/2024 7:[address] [facility] eGFR 10(L) >=60 mL/min/1. 73m2 LAB CHEMISTRY METHOD 07/10/2024 7:[address] [facility] Comment:Calculation based on the??Chronic Kidney Disease Epidemiology Collaboration (CKD-EPI) equation refit??without adjustment for race. BUN/Creatinine Ratio 15.5 LAB CHEMISTRY METHOD 07/10/2024 7:[address] [facility] Calcium 8.5 8.5 - 10.5 mg/dL LAB CHEMISTRY METHOD 07/10/2024 7:[address] [facility] Blood Venous blood specimen / Unknown Venipuncture / Unknown 07/10/2024 5:16 AM EST 07/10/2024 6:42 AM EST us Maria Alejandra Melendez MD LAB BLOOD ORDERABLES Final Res ult [facility] [address] [place] [address], * (ABNORMAL) POCT Glucose, blood (07/09/2024 7:52 PM EST) Glucose POCT 243(H) 70 - 100 mg/dL 07/09/2024 7:[address] [facility] Blood Capillary blood specimen / Unknown 07/09/2024 7:52 PM EST 07/09/2024 7:54 PM EST Maria Alejandra Melendez MD LAB POINT OF CARE TE ST DOCKED DEVICE UNSOLICITED RESULTS Final Result Performing Organization Address [facility]/ZIP Co de Phone Number [facility] [address] [place] [address], [place] [phone] * (ABNORMAL) POCT Glucose, blood (07/09/2024 4:27 PM EST) Glucose POCT 264(H) 70 - 100 mg/dL 07/09/2024 4:28 PM EST [facility] Blood Capillary blood specimen / Unknown 07/09/2024 4:27 PM EST 07/09/2024 4:29 PM EST us Maria Alejandra Melendez MD LAB POINT OF CARE TE ST DOCKED DEVICE UNSOLICITED RESULTS Final Result Performing Organization Address [facility]/ZIP Co de Phone Number [facility] [address] [place] [address], [place] [phone] * (ABNORMAL) POCT Glucose, blood (07/09/2024 11:33 AM EST) Glucose POCT 179(H) 70 - 100 mg/dL 07/09/2024 11:34 AM EST [facility] Blood Capillary blood specimen / Unknown 07/09/2024 11:33 AM EST 07/09/2024 11:35 AM EST us Maria Alejandra Melendez MD LAB POINT OF CARE TE ST DOCKED DEVICE UNSOLICITED RESULTS Final Result Performing Organization Address City/[facility]/ZIP Co de Phone Number [facility] [address] [place] [address], [place] [phone] * (ABNORMAL) POCT Glucose, blood (07/09/2024 8:59 AM EST) Glucose POCT 175(H) 70 - 100 mg/dL 07/09/2024 9:[address] [facility] Blood Capillary blood specimen / Unknown 07/09/2024 8:59 AM EST 07/09/2024 9:08 AM EST us Maria Alejandra Melendez MD LAB POINT OF CARE TE ST DOCKED DEVICE UNSOLICITED RESULTS Final Result [facility] [address] [place] [address], * (ABNORMAL) CBC auto differential (07/09/2024 6:25 AM EST) [facility] WBC 18.4(H) 4.8 - 10.8 K/mcL LAB HEMETOLOGY METHOD 07/09/2024 8:[address] [facility] RBC 3.50(L) 3.80 - 4.80 M/mcL LAB HEMETOLOGY METHOD 07/09/2024 8:[address] [facility] Hemoglobin 8.3(L) 11.5 - 16.0 g/dL LAB HEMETOLOGY METHOD 07/09/2024 8:[address] [facility] Hematocrit 26.1(L) 35.0 - 47.0 % LAB HEMETOLOGY METHOD 07/09/2024 8:[address] [facility] MCV 74.4(L) 79.0 - 98.0 FL LAB HEMETOLOGY METHOD 07/09/2024 8:[address] [facility] MCH 23.6(L) 27.0 - 32.0 pcg LAB HEMETOLOGY METHOD 07/09/2024 8:[address] [facility] MCHC 31.8(L) 32.0 - 37.0 g/dL LAB HEMETOLOGY METHOD 07/09/2024 8:[address] [facility] RDW 19.2(H) 11.0 - 15.0 % LAB HEMETOLOGY METHOD 07/09/2024 8:[address] [facility] Platelets 333 130 - 400 K/mcL LAB HEMETOLOGY METHOD 07/09/2024 8:[address] [facility] MPV 9.1 7.0 - 11.0 FL LAB HEMETOLOGY METHOD 07/09/2024 8:[address] [facility] NRBC 0.0 <1.0 % LAB HEMETOLOGY METHOD 07/09/2024 8:[address] [facility] NRBC Absolute 0.00 <0.10 K/mcL LAB HEMETOLOGY METHOD 07/09/2024 8:[address] [facility] Neutrophils Relative 89.0 % LAB HEMETOLOGY METHOD 07/09/2024 8:[address] [facility] Lymphocytes Relative 2.8 % LAB HEMETOLOGY METHOD 07/09/2024 8:[address] [facility] Monocytes Relative 6.1 % LAB HEMETOLOGY METHOD 07/09/2024 8:[address] [facility] Eosinophils Relative 1.1 % LAB HEMETOLOGY METHOD 07/09/2024 8:[address] [facility] Basophils Relative 0.2 % LAB HEMETOLOGY METHOD 07/09/2024 8:[address] [facility] Immature Granulocytes Relative 0.8 % LAB HEMETOLOGY METHOD 07/09/2024 8:[address] [facility] Neutrophils Absolute 16.38(H) 1.50 - 7.00 K/mcL LAB HEMETOLOGY METHOD 07/09/2024 8:[address] [facility] Lymphocytes Absolute 0.52(L) 1.00 - 5.00 K/mcL LAB HEMETOLOGY METHOD 07/09/2024 8:[address] [facility] Monocytes Absolute 1.13(H) 0.20 - 1.00 K/mcL LAB HEMETOLOGY METHOD 07/09/2024 8:05 AM EST [facility] Eosinophils Absolute 0.21 0.00 - 0.50 K/[facility] LAB HEMETOLOGY METHOD 07/09/2024 8:05 AM EST [facility] Basophils Absolute 0.03 0.00 - 0.20 K/[facility] LAB HEMETOLOGY METHOD 07/09/2024 8:05 AM EST [facility] Immature Granulocytes Absolute 0.14(H) 0.00 - 0.03 K/[facility] LAB HEMETOLOGY METHOD 07/09/2024 8:05 AM EST [facility] Blood Venous blood specimen / Unknown Venipuncture / Unknown 07/09/2024 6:25 AM EST 07/09/2024 7:11 AM EST us Aye HEDRICK LAB BLOOD ORDERABLES Final Re sult [facility] [address] [place] [address], [place] [phone] * Creatine kinase (07/09/2024 6:25 AM EST) [facility] Total CK 172 22 - 269 unit/L LAB CHEMISTRY METHOD 07/09/2024 8:11 AM EST [facility] Blood Venous blood specimen / Unknown Venipuncture / Unknown 07/09/2024 6:25 AM EST 07/09/2024 7:11 AM EST Aye HEDRICK LAB BLOOD ORDERABLES Final Re sult [facility] [address] [place] [address], [place] [phone] * (ABNORMAL) Calcium, ionized (07/09/2024 6:25 AM EST) [facility] Calcium Ionized 5.66(H) 4.50 - 5.30 mg/dL 07/09/2024 7:23 AM EST [facility] Blood Venous blood specimen / Unknown Venipuncture / Unknown 07/09/2024 6:25 AM EST 07/09/2024 7:11 AM EST Aye HEDRICK LAB BLOOD ORDERABLES Final Re sult Performing Organization Address City/[facility]/ZIP Co de Phone Number [facility] [address] [place] [address], [place] [phone] * Magnesium (07/09/2024 6:25 AM EST) [facility] Magnesium 2.0 1.9 - 2.6 mg/dL LAB CHEMISTRY METHOD 07/09/2024 8:11 AM EST [facility] Blood Venous blood specimen / Unknown Venipuncture / Unknown 07/09/2024 6:25 AM EST 07/09/2024 7:11 AM EST us Aye HEDRICK LAB BLOOD ORDERABLES Final Re sult Performing Organization Address City/[facility]/ZIP Co de Phone Number [facility] [address] [place] [address], [place] [phone] * (ABNORMAL) Basic metabolic panel (07/09/2024 6:25 AM EST) [facility] Sodium 131(L) 133 - 145 mmol/L LAB CHEMISTRY METHOD 07/09/2024 8:12 AM EST [facility] Potassium 3.8 3.5 - 5.5 mmol/L LAB CHEMISTRY METHOD 07/09/2024 8:12 AM EST [facility] Chloride 101 96 - 110 mmol/L LAB CHEMISTRY METHOD 07/09/2024 8:12 AM EST [facility] CO2 21 21 - 32 mmol/L LAB CHEMISTRY METHOD 07/09/2024 8:[address] [facility] Anion Gap 9 3 - 11 LAB CHEMISTRY METHOD 07/09/2024 8:[address] [facility] Glucose 170(H) 70 - 100 mg/dL LAB CHEMISTRY METHOD 07/09/2024 8:[address] [facility] BUN 63(H) 5 - 25 mg/dL LAB CHEMISTRY METHOD 07/09/2024 8:[address] [facility] Creatinine 4.07(H) 0.50 - 1.10 mg/dL LAB CHEMISTRY METHOD 07/09/2024 8:[address] [facility] eGFR 11(L) >=60 mL/min/1. 73m2 LAB CHEMISTRY METHOD 07/09/2024 8:[address] [facility] Comment:Calculation based on the??Chronic Kidney Disease Epidemiology Collaboration (CKD-EPI) equation refit??without adjustment for race. BUN/Creatinine Ratio 15.5 LAB CHEMISTRY METHOD 07/09/2024 8:[address] [facility] Calcium 9.5 8.5 - 10.5 mg/dL LAB CHEMISTRY METHOD 07/09/2024 8:[address] [facility] Blood Venous blood specimen / Unknown Venipuncture / Unknown 07/09/2024 6:25 AM EST 07/09/2024 7:11 AM EST us Aye HEDRICK LAB BLOOD ORDERABLES Final Re sult [facility] [address] [place] [address], * XR Chest 1 View (07/08/2024 10:00 [...] Signed Date: 07/09/2024 09:03 ET Workstation ID: [id number] Transcribed By: Self Edit Transcribed Date: 07/09/2024 [...] Signed Date: 07/09/2024 09:03 ET Workstation ID: [id number] Transcribed By: Self Edit Transcribed Date: 07/09/2024 09:02 ET Aye HEDRICK IMG XR PROCEDURES Final Resul t * Green LI heparin tube (07/08/2024 9:50 PM EST) Extra Tube Hold for add-ons. 07/09/2024 12:01 AM EST [facility] Comment:Auto resulted. Blood Venous blood specimen / Unknown 07/08/2024 9:50 PM EST 07/08/2024 10:41 PM EST us Wayne Donahue MD LAB BLOOD ORDERABLES Final Re sult [facility] [address] [place] [address], [place] [phone] * Culture blood (07/08/2024 9:49 PM EST) Culture, Blood No growth at 5 days 07/13/2024 10:01 PM EST [facility] Blood Venous blood specimen / Unknown Venipuncture / Unknown 07/08/2024 9:49 PM EST 07/08/2024 9:54 PM EST us Aye HEDRICK LAB MICROBIOLOGY - GENERAL OR DERABLES Final Result [facility] [address] [place] [address], [place] [phone] * Lactate (07/08/2024 9:42 PM EST) Lactate 1.3 mmol/L 07/08/2024 10:30 PM EST [facility] Blood Venous blood specimen / Unknown Venipuncture / Unknown 07/08/2024 9:42 PM EST 07/08/2024 9:54 PM EST us Aye HEDRICK LAB BLOOD ORDERABLES Final Re sult Performing Organization Address City/[facility]/ZIP Co de Phone Number [facility] [address] [place] [address], [place] [phone] * Culture blood (07/08/2024 9:37 PM EST) Culture, Blood No growth at 5 days 07/13/2024 10:01 PM EST [facility] Blood Venous blood specimen / Unknown Venipuncture / Unknown 07/08/2024 9:37 PM EST 07/08/2024 9:56 PM EST us Aye H[facility] LAB MICROBIOLOGY - GENERAL OR DERABLES Final Result [facility] [address] [place] [address], [place] [phone] * (ABNORMAL) POCT Glucose, blood (07/08/2024 8:46 PM EST) [facility] Glucose POCT 264(H) 70 - 100 mg/dL 07/08/2024 8:46 PM EST [facility] Blood Capillary blood specimen / Unknown 07/08/2024 8:46 PM EST 07/08/2024 8:47 PM EST Wayne Donahue MD LAB POINT OF CARE TE ST DOCKED DEVICE UNSOLICITED RESULTS Final Result Performing Organization Address [facility] Co de Phone Number [facility] [address] [place] [address], [place] [phone] * (ABNORMAL) Basic metabolic panel (07/08/2024 8:30 PM EST) [facility] Sodium 130(L) 133 - 145 mmol/L LAB CHEMISTRY METHOD 07/08/2024 11:[address] [facility] Potassium 4.0 3.5 - 5.5 mmol/L LAB CHEMISTRY METHOD 07/08/2024 11:[address] [facility] Chloride 98 96 - 110 mmol/L LAB CHEMISTRY METHOD 07/08/2024 11:[address] [facility] CO2 22 21 - 32 mmol/L LAB CHEMISTRY METHOD 07/08/2024 11:[address] [facility] Anion Gap 10 3 - 11 LAB CHEMISTRY METHOD 07/08/2024 11:[address] [facility] Glucose 261(H) 70 - 100 mg/dL LAB CHEMISTRY METHOD 07/08/2024 11:[address] [facility] BUN 64(H) 5 - 25 mg/dL LAB CHEMISTRY METHOD 07/08/2024 11:[address] [facility] Creatinine 4.32(H) 0.50 - 1.10 mg/dL LAB CHEMISTRY METHOD 07/08/2024 11:[address] [facility] eGFR 10(L) >=60 mL/min/1. 73m2 LAB CHEMISTRY METHOD 07/08/2024 11:[address] [facility] Comment:Calculation based on the??Chronic Kidney Disease Epidemiology Collaboration (CKD-EPI) equation refit??without adjustment for race. BUN/Creatinine Ratio 14.8 LAB CHEMISTRY METHOD 07/08/2024 11:[address] [facility] Calcium 10.3 8.5 - 10.5 mg/dL LAB CHEMISTRY METHOD 07/08/2024 11:[address] [facility] Blood Venous blood specimen / Unknown Venipuncture / Unknown 07/08/2024 8:30 PM EST 07/08/2024 8:37 PM EST us Aye HEDRICK LAB BLOOD ORDERABLES Final Re sult [facility] [address] [place] [address], * (ABNORMAL) Complete blood count (07/08/2024 8:30 PM EST) WBC 20.5(H) 4.8 - 10.8 K/mcL LAB HEMETOLOGY METHOD 07/08/2024 8:[address] [facility] RBC 4.00 3.80 - 4.80 M/mcL LAB HEMETOLOGY METHOD 07/08/2024 8:[address] [facility] Hemoglobin 9.2(L) 11.5 - 16.0 g/dL LAB HEMETOLOGY METHOD 07/08/2024 8:[address] [facility] Hematocrit 30.0(L) 35.0 - 47.0 % LAB HEMETOLOGY METHOD 07/08/2024 8:[address] [facility] MCV 75.8(L) 79.0 - 98.0 FL LAB HEMETOLOGY METHOD 07/08/2024 8:56 PM EST [facility] MCH 23.2(L) 27.0 - 32.0 pcg LAB HEMETOLOGY METHOD 07/08/2024 8:56 PM EST [facility] MCHC 30.7(L) 32.0 - 37.0 g/dL LAB HEMETOLOGY METHOD 07/08/2024 8:56 PM EST [facility] RDW 19.9(H) 11.0 - 15.0 % LAB HEMETOLOGY METHOD 07/08/2024 8:56 PM EST [facility] Platelets 332 130 - 400 K/mcL LAB HEMETOLOGY METHOD 07/08/2024 8:56 PM EST [facility] MPV 8.6 7.0 - 11.0 FL LAB HEMETOLOGY METHOD 07/08/2024 8:56 PM EST [facility] NRBC 0.0 <1.0 % LAB HEMETOLOGY METHOD 07/08/2024 8:56 PM EST [facility] NRBC Absolute 0.00 <0.10 K/mcL LAB HEMETOLOGY METHOD 07/08/2024 8:56 PM EST [facility] Blood Venous blood specimen / Unknown Venipuncture / Unknown 07/08/2024 8:30 PM EST 07/08/2024 8:37 PM EST us Aye [facility] BLOOD ORDERABLES Final Re sult [facility] [address] [place] [address], * (ABNORMAL) Electrolyte panel (07/08/2024 8:30 PM EST) Sodium 130(L) 133 - 145 mmol/L LAB CHEMISTRY METHOD 07/08/2024 11:37 PM EST [facility] Potassium 4.0 3.5 - 5.5 mmol/L LAB CHEMISTRY METHOD 07/08/2024 11:37 PM EST [facility] Chloride 98 96 - 110 mmol/L LAB CHEMISTRY METHOD 07/08/2024 11:37 PM EST [facility] CO2 22 21 - 32 mmol/L LAB CHEMISTRY METHOD 07/08/2024 11:37 PM EST [facility] Anion Gap 10 3 - 11 LAB CHEMISTRY METHOD 07/08/2024 11:37 PM EST [facility] Blood Venous blood specimen / Unknown Venipuncture / Unknown 07/08/2024 8:30 PM EST 07/08/2024 8:37 PM EST Aye [facility] BLOOD ORDERABLES Final Re sult [facility] [address] [place] [address], [place] [phone] * Transfuse RBC (07/08/2024 6:45 PM EST) us Raya [facility] BLOOD TRANSFUSION ORDE RABLES Final Result * Transfuse RBC: 1 Units (07/08/2024 6:45 PM EST) us Raya [facility] BLOOD TRANSFUSION ORDE RABLES Final Result * (ABNORMAL) POCT Glucose, blood (07/08/2024 6:19 PM EST) Glucose POCT 276(H) 70 - 100 mg/dL 07/08/2024 6:19 PM EST [facility] Blood Capillary blood specimen / Unknown 07/08/2024 6:19 PM EST 07/08/2024 6:20 PM EST Wayne Donahue MD LAB POINT OF CARE TE ST DOCKED DEVICE UNSOLICITED RESULTS Final Result Performing Organization Address [facility]/ZIP Co de Phone Number [facility] [address] [place] [address], [place] [phone] * PATHOLOGIST REVIEW PROTEIN ELECTROPHORESIS (07/08/2024 5:52 PM EST) Pathologist [facility] Pathologist Interpretation Reviewed by Rosenda Galeana MD 07/14/2024 9:21 AM EST [facility] Blood Venous blood specimen / Unknown Venipuncture / Unknown 07/08/2024 5:52 PM EST 07/08/2024 6:00 PM EST Aye HEDRICK LAB BLOOD ORDERABLES Final Re sult Performing Organization Address [facility] Co de Phone Number [facility] [address] [place] [address], * Protein, total (07/08/2024 5:52 PM EST) [facility] Total Protein 6.4 6.0 - 8.0 g/dL LAB CHEMISTRY METHOD 07/08/2024 6:30 PM EST [facility] Blood Venous blood specimen / Unknown Venipuncture / Unknown 07/08/2024 5:52 PM EST 07/08/2024 6:00 PM EST Aye HEDRICK LAB BLOOD ORDERABLES Final Re sult Performing Organization Address [facility]/ZIP Co de Phone Number [facility] [address] [place] [address], [place] [phone] * (ABNORMAL) Basic metabolic panel (07/08/2024 5:52 PM EST) [facility] Sodium 128(L) 133 - 145 mmol/L LAB CHEMISTRY METHOD 07/08/2024 6:50 PM EST [facility] Potassium 4.0 3.5 - 5.5 mmol/L LAB CHEMISTRY METHOD 07/08/2024 6:[address] [facility] Chloride 96 96 - 110 mmol/L LAB CHEMISTRY METHOD 07/08/2024 6:[address] [facility] CO2 25 21 - 32 mmol/L LAB CHEMISTRY METHOD 07/08/2024 6:[address] [facility] Anion Gap 7 3 - 11 LAB CHEMISTRY METHOD 07/08/2024 6:[address] [facility] Glucose 259(H) 70 - 100 mg/dL LAB CHEMISTRY METHOD 07/08/2024 6:[address] [facility] BUN 67(H) 5 - 25 mg/dL LAB CHEMISTRY METHOD 07/08/2024 6:[address] [facility] Creatinine 4.12(H) 0.50 - 1.10 mg/dL LAB CHEMISTRY METHOD 07/08/2024 6:[address] [facility] eGFR 10(L) >=60 mL/min/1. 73m2 LAB CHEMISTRY METHOD 07/08/2024 6:[address] [facility] Comment:Calculation based on the??Chronic Kidney Disease Epidemiology Collaboration (CKD-EPI) equation refit??without adjustment for race. BUN/Creatinine Ratio 16.3 LAB CHEMISTRY METHOD 07/08/2024 6:[address] [facility] Calcium 10.8(H) 8.5 - 10.5 mg/dL LAB CHEMISTRY METHOD 07/08/2024 6:[address] [facility] Blood Venous blood specimen / Unknown Venipuncture / Unknown 07/08/2024 5:52 PM EST 07/08/2024 6:00 PM EST us Aye HEDRICK LAB BLOOD ORDERABLES Final Re sult [facility] [address] [place] [address], * (ABNORMAL) Serum albumin (07/08/2024 5:52 PM EST) Albumin 2.1(L) 3.2 - 5.0 g/dL LAB CHEMISTRY METHOD 07/08/2024 6:34 PM EST [facility] Blood Venous blood specimen / Unknown Venipuncture / Unknown 07/08/2024 5:52 PM EST 07/08/2024 6:00 PM EST Aye HEDRICK LAB BLOOD ORDERABLES Final Re sult [facility] [address] [place] [address], [place] [phone] * (ABNORMAL) Electrolyte panel (07/08/2024 5:52 PM EST) Sodium 128(L) 133 - 145 mmol/L LAB CHEMISTRY METHOD 07/08/2024 6:[address] [facility] Potassium 4.0 3.5 - 5.5 mmol/L LAB CHEMISTRY METHOD 07/08/2024 6:[address] [facility] Chloride 96 96 - 110 mmol/L LAB CHEMISTRY METHOD 07/08/2024 6:[address] [facility] CO2 25 21 - 32 mmol/L LAB CHEMISTRY METHOD 07/08/2024 6:[address] [facility] Anion Gap 7 3 - 11 LAB CHEMISTRY METHOD 07/08/2024 6:[address] [facility] Blood Venous blood specimen / Unknown Venipuncture / Unknown 07/08/2024 5:52 PM EST 07/08/2024 6:00 PM EST Aye HEDRICK LAB BLOOD ORDERABLES Final Re sult [facility] [address] [place] [address], [place] [phone] * (ABNORMAL) Protein electrophoresis, serum (07/08/2024 5:52 PM EST) Total Protein 6.4 6.0 - 8.0 g/dL LAB CHEMISTRY METHOD 07/14/2024 9:[address] [facility] Albumin, Serum 2.2(L) 2.9 - 4.1 g/dL LAB CHEMISTRY METHOD 07/14/2024 9:21 AM EST [facility] Alpha 1 Globulin (g/dL) 0.6(H) 0.1 - 0.5 g/dL LAB CHEMISTRY METHOD 07/14/2024 9:[address] [facility] Alpha 2 Globulin (g/dL) 1.2 0.7 - 1.5 g/dL LAB CHEMISTRY METHOD 07/14/2024 9:[address] [facility] Beta (g/dL) 1.0 0.7 - 1.5 g/dL LAB CHEMISTRY METHOD 07/14/2024 9:[address] [facility] Gamma Globulin (g/dL) 1.5 0.7 - 1.9 g/dL LAB CHEMISTRY METHOD 07/14/2024 9:[address] [facility] SPEP Interpretation Hypoalbuminem ia, suggestive of malnutrition, decreased hepatic synthesis or renal/GI loss Elevated alpha-1 fraction, suggestive of acute or or chronic inflammation. LAB CHEMISTRY METHOD 07/14/2024 9:[address] [facility] Blood Venous blood specimen / Unknown Venipuncture / Unknown 07/08/2024 5:52 PM EST 07/08/2024 6:00 PM EST us Aye HEDRICK LAB BLOOD ORDERABLES Final Re sult [facility] [address] [place] [address], [place] [phone] * [place] Retroperitoneal Complete (07/08/2024 4:30 PM EST) Anatomical Region Laterality Modality Body Ultrasound 07/10/2024 2:07 PM EST Impressions 07/10/2024 2:08 PM EST Normal appearance of the kidneys. -------- FINAL REPORT -------- Dictated By: Primo Dee Dictated Date: 07/10/2024 14:07 ET Assigned Physician: Primo Dee Reviewed and Electronically Signed By: Primo Dee Signed Date: 07/10/2024 14:08 ET Workstation ID: [id number] Transcribed By: Self Edit Transcribed Date: 07/10/2024 [...] Signed Date: 07/10/2024 14:08 ET Workstation ID: [id number] Transcribed By: Self Edit Transcribed Date: 07/10/2024 14:07 ET us Aye MEDELLINAnibal US PROCEDURES Final Resul t * Respiratory virus panel molecular study (07/08/2024 2:59 PM EST) Pathologist [facility] Adenovirus Detection by PCR Not Detected Not [...] Detected LAB MICROBIOLOGY METHOD 07/08/2024 4:[address] [facility] Coronavirus HKU1 Not Detected Not Detected LAB MICROBIOLOGY METHOD 07/08/2024 4:18 PM EST [facility] Coronavirus OC43 Not Detected Not Detected LAB MICROBIOLOGY METHOD 07/08/2024 4:[address] [facility] Coronavirus NL63 Not Detected Not Detected LAB MICROBIOLOGY METHOD 07/08/2024 4:[address] [facility] Parainfluenza Virus 1 Not Detected Not Detected LAB MICROBIOLOGY METHOD 07/08/2024 4:[address] [facility] Parainfluenza Virus 2 Not Detected Not Detected LAB MICROBIOLOGY METHOD 07/08/2024 4:[address] [facility] Parainfluenza Virus 3 Not Detected Not Detected LAB MICROBIOLOGY METHOD 07/08/2024 4:[address] [facility] Parainfluenza Virus 4 Not Detected Not Detected LAB MICROBIOLOGY METHOD 07/08/2024 4:[address] [facility] RSV PCR Not Detected Not Detected LAB MICROBIOLOGY METHOD 07/08/2024 4:[address] [facility] Human Metapneumovirus A and B Not Detected Not Detected LAB MICROBIOLOGY METHOD 07/08/2024 4:[address] [facility] Rhinovirus/Entero virus Not Detected Not [...] Detected LAB MICROBIOLOGY METHOD 07/08/2024 4:[address] [facility] SARS COV-2 Not Detected Not Detected LAB MICROBIOLOGY METHOD 07/08/2024 4:[address] [facility] Swab Both anterior nares / Unknown Non-blood Collection / Unknown 07/08/2024 2:59 PM EST 07/08/2024 3:15 PM EST [facility] - 07/08/2024 4:18 PM EST Testing was performed using the [employer] Respiratory Pathogen PCR Assay. All results must [...] Final Result [facility] [address] [place] [address], * XR Chest 2 Views (07/08/2024 2:01 PM EST) Anatomical Region Laterality Modality Body Radiographic Jennifer ging 07/08/2024 2:06 PM EST Impressions 07/08/2024 2:07 PM EST No acute findings. -------- FINAL REPORT -------- Dictated By: Henrique Bray Dictated Date: 07/08/2024 14:06 ET Assigned Physician: Henrique Bray Reviewed and Electronically Signed By: Henrique Bray Signed Date: 07/08/2024 14:07 ET Workstation ID: [id number] Transcribed By: Self Edit Transcribed Date: 07/08/2024 [...] Signed Date: 07/08/2024 14:07 ET Workstation ID: [id number] Transcribed By: Self Edit Transcribed Date: 07/08/2024 14:06 ET us Jj Wolfe MD IMG XR PROCEDURES Final R esult * Type and screen (07/08/2024 1:18 PM EST) ABO Group O 07/08/2024 2:42 PM EST [facility] Rh Type Positive 07/08/2024 2:42 PM EST [facility] Antibody Screen Negative 07/08/2024 2:42 PM EST [facility] Blood Venous blood specimen / Unknown Venipuncture / Unknown 07/08/2024 1:18 PM EST 07/08/2024 1:34 PM EST Raya HEDRICK LAB BLOOD BANK TEST OR DERABLES Final Result Performing Organization Address City/[facility]/ZIP Co de Phone Number [facility] [address] [place] [address], [place] [phone] * (ABNORMAL) Troponin I high sensitivity (07/08/2024 1:18 PM EST) [facility] High Sensitivity Troponin I 81(H) <=54 ng/L LAB CHEMISTRY METHOD 07/08/2024 2:17 PM EST [facility] Blood [...] ORDERABLES [place] l Result Performing Organization Address City/[facility]/ZIP Co de Phone Number [facility] [address] [place] [address], [place] [phone] * Prepare RBC: 1 Units (07/08/2024 1:17 PM EST) [facility] Product Code [id number] 07/08/2024 4:13 PM EST [facility] Unit Number [id number] 07/08/19 25 4:13 PM EST [facility] Crossmatch Compatible 07/08/2024 2:[address] [facility] Dispense Status Transfused 07/08/2024 4:[address] [facility] Unit ABO Rh OPOS 07/08/2024 4:[address] [facility] Unit Expiration Date Time [id number] 07/08/2024 4:[address] [facility] Unit Blood Type 5100 07/08/2024 4:[address] [facility] Blood Venous blood specimen / Unknown 07/08/2024 1:17 PM EST 06/17/2024 10:17 AM EST Raya HEDRICK BLOOD BANK PRODUCT ORD ERABLES Final Result Performing Organization Address City/[facility]/ZIP Co de Phone Number [facility] [address] [place] [address], * Culture urine (07/08/2024 12:59 PM EST) Culture, Urine No growth 07/09/2024 10:[address] [facility] Urine Urine specimen obtained by clean catch procedure / Unknown Non-blood Collection / Unknown 07/08/2024 12:59 PM EST 07/08/2024 1:21 PM EST Jj Wolfe MD LAB MICROBIOLOGY - GENERA L ORDERABLES Final Result [facility] [address] [place] [address], * Robertson urine culture tube (07/08/2024 12:59 PM EST) Extra Tube Hold for add-ons. 07/08/2024 3:[address] [facility] Comment:Auto resulted. Urine Urine specimen obtained by clean catch procedure / Unknown Non-blood Collection / Unknown 07/08/2024 12:59 PM EST 07/08/2024 1:11 PM EST Jj Wolfe MD LAB URINE ORDERABLES [place] angelica Result [facility] [address] [place] [address], [place] [phone] * (ABNORMAL) Urinalysis with reflex microscopic and culture (07/08/2024 12:59 PM EST) Specific [place] Urine 1.020 1.003 - 1.030 LAB URINALYSIS - AUTOMATED METHOD 07/08/2024 1:[address] [facility] pH, Urine 5.5 5.0 - 8.0 pH LAB URINALYSIS - AUTOMATED METHOD 07/08/2024 1:[address] [facility] Leukocytes, Urine Negative Negative LAB URINALYSIS - AUTOMATED METHOD 07/08/2024 1:[address] [facility] Nitrite, Urine Negative Negative LAB URINALYSIS - AUTOMATED METHOD 07/08/2024 1:[address] [facility] Protein, Urine 100(A) <=Trace mg/dL LAB URINALYSIS - AUTOMATED METHOD 07/08/2024 1:[address] [facility] Glucose, Urine 500(A) Negative mg/dL LAB URINALYSIS - AUTOMATED METHOD 07/08/2024 1:[address] [facility] Ketones, Urine Negative Negative mg/dL LAB URINALYSIS - AUTOMATED METHOD 07/08/2024 1:[address] [facility] Urobilinogen, Urine 0.2 0.2 - 1.0 mg/dL LAB URINALYSIS - AUTOMATED METHOD 07/08/2024 1:[address] [facility] Bilirubin, Urine Negative Negative LAB URINALYSIS - AUTOMATED METHOD 07/08/2024 1:21 PM EST [facility] Blood, Urine Large(A) Negative LAB URINALYSIS - AUTOMATED METHOD 07/08/2024 1:[address] [facility] RBC, Urine 21.6(H) 0 - 4 /HPF LAB URINALYSIS - AUTOMATED METHOD 07/08/2024 1:[address] [facility] WBC, Urine 7.3(H) 0 - 4 /HPF LAB URINALYSIS - AUTOMATED METHOD 07/08/2024 1:[address] [facility] Squamous Epithelial, Urine 30 0 - 60 /LPF LAB URINALYSIS - AUTOMATED METHOD 07/08/2024 1:[address] [facility] Bacteria, Urine Negative Negative /HPF LAB URINALYSIS - AUTOMATED METHOD 07/08/2024 1:[address] [facility] Hyaline Casts, Urine 1.7 0 - 3 /LPF LAB URINALYSIS - AUTOMATED METHOD 07/08/2024 1:[address] [facility] Urine Urine specimen obtained by clean catch procedure / Unknown Non-blood Collection / Unknown 07/08/2024 12:59 PM EST 07/08/2024 1:11 PM EST Jj Wolfe MD LAB URINE ORDERABLES [place] l Result [facility] [address] [place] [address], * CT Head wo Contrast (07/08/2024 12:11 [...] Signed Date: 07/08/2024 12:23 ET Workstation ID: [id number] Transcribed By: Self Edit Transcribed Date: 07/08/2024 [...] Signed Date: 07/08/2024 12:23 ET Workstation ID: [id number] Transcribed By: Self Edit Transcribed Date: 07/08/2024 [...] Signed Date: 07/08/2024 12:27 ET Workstation ID: [id number] Transcribed By: Self Edit Transcribed Date: 07/08/2024 [...] Signed Date: 07/08/2024 12:27 ET Workstation ID: [id number] Transcribed By: Self Edit Transcribed Date: 07/08/2024 [...] Re sult [facility] [address] [place] [address], * (ABNORMAL) Iron and TIBC (07/08/2024 11:10 [...] ORDERABLES Final Re sult Performing Organization Address City/[facility]/ZIP Co de Phone Number [facility] [address] [place] [address], [place] [phone] * (ABNORMAL) Ferritin (07/08/2024 11:10 AM EST) [facility] Ferritin 708(H) 8 - 252 ng/mL LAB CHEMISTRY METHOD 07/08/2024 3:51 PM EST [facility] Blood Venous blood specimen / Unknown Venipuncture / Unknown 07/08/2024 11:10 AM EST 07/08/2024 11:42 AM EST us Wayne Donahue MD LAB BLOOD ORDERABLES Final Re sult Performing Organization Address [facility]/ZIP Co de Phone Number [facility] [address] [place] [address], [place] [phone] * (ABNORMAL) Reticulocyte count (07/08/2024 11:10 AM EST) Retic Ct Abs 0.050 0.030 - 0.090 M/mcL LAB HEMETOLOGY METHOD 07/08/2024 2:52 PM EST [facility] Retic Ct Pct 1.4 0.7 - 1.7 % LAB HEMETOLOGY METHOD 07/08/2024 2:52 PM EST [facility] Immature Retic Fract 24.5(H) 2.3 - 15.9 % LAB HEMETOLOGY METHOD 07/08/2024 2:52 PM EST [facility] Reticulocyte Hemoglobin 22.5(L) >29.0 pcg LAB HEMETOLOGY METHOD 07/08/2024 2:52 PM EST [facility] Blood Venous blood specimen / Unknown Venipuncture / Unknown 07/08/2024 11:10 AM EST 07/08/2024 11:42 AM EST us Wayne Donahue MD LAB BLOOD ORDERABLES Final Re sult Performing Organization Address [facility] de Phone Number [facility] [address] [place] [address], [place] [phone] * (ABNORMAL) Haptoglobin (07/08/2024 11:10 AM EST) Haptoglobin 570(H) 16 - 200 mg/dL LAB CHEMISTRY METHOD 07/08/2024 3:44 PM EST [facility] Blood Venous blood specimen / Unknown Venipuncture / Unknown 07/08/2024 11:10 AM EST 07/08/2024 11:42 AM EST us Wayne Donahue MD LAB BLOOD ORDERABLES Final Re sult Performing Organization Address [facility] de Phone Number [facility] [address] [place] [address], [place] [phone] * (ABNORMAL) Folate (07/08/2024 11:10 AM EST) Pathologist [facility] Folate >20.0(H) 2.8 - 17.0 ng/ml LAB CHEMISTRY METHOD 07/08/2024 3:51 PM EST [facility] Blood Venous blood specimen / Unknown Venipuncture / Unknown 07/08/2024 11:10 AM EST 07/08/2024 11:42 AM EST us Wayne Donahue MD LAB BLOOD ORDERABLES Final Re sult Performing Organization Address City/[facility]/ZIP Co de Phone Number [facility] [address] [place] [address], [place] [phone] * Vitamin B12 (07/08/2024 11:10 AM EST) [facility] Vitamin B-12 384 250 - 900 pcg/mL LAB CHEMISTRY METHOD 07/08/2024 3:51 PM EST [facility] Blood Venous blood specimen / Unknown Venipuncture / Unknown 07/08/2024 11:10 AM EST 07/08/2024 11:42 AM EST us Wayne Donahue MD LAB BLOOD ORDERABLES Final Re sult Performing Organization Address City/[facility]/ZIP Co de Phone Number [facility] [address] [place] [address], [place] [phone] * Cortisol (07/08/2024 11:10 AM EST) [facility] Cortisol 58.1 mcg/dL LAB CHEMISTRY METHOD 07/08/2024 [...] Re sult [facility] [address] [place] [address], [place] [phone] * (ABNORMAL) Thyroid stimulating hormone (07/08/2024 11:10 AM EST) [facility] TSH 4.50(H) 0.40 - 4.00 mcIU/mL LAB CHEMISTRY METHOD 07/08/2024 3:31 PM EST [facility] Blood Venous blood specimen / Unknown Venipuncture / Unknown 07/08/2024 11:10 AM EST 07/08/2024 11:42 AM EST us Wayne Donahue MD LAB BLOOD ORDERABLES Final Re sult Performing Organization Address [facility]/ZIP Co de Phone Number [facility] [address] [place] [address], [place] [phone] * Uric acid (07/08/2024 11:10 AM EST) [facility] Uric Acid 7.2 3.1 - 7.8 mg/dL LAB CHEMISTRY METHOD 07/08/2024 3:44 PM EST [facility] Blood Venous blood specimen / Unknown Venipuncture / Unknown 07/08/2024 11:10 AM EST 07/08/2024 11:42 AM EST us Wayne Donahue MD LAB BLOOD ORDERABLES Final Re sult Performing Organization Address [facility] Co de Phone Number [facility] [address] [place] [address], [place] [phone] * (ABNORMAL) Osmolality (07/08/2024 11:10 AM EST) [facility] Osmolality Iván 307(H) 280 - 300 mOsm/kg LAB CHEMISTRY METHOD 07/08/2024 6:51 PM EST [facility] Blood Venous blood specimen / Unknown Venipuncture / Unknown 07/08/2024 11:10 AM EST 07/08/2024 11:42 AM EST us Wayne Donahue MD LAB BLOOD ORDERABLES Final Re sult Performing Organization Address City/[facility]/ZIP Co de Phone Number [facility] [address] [place] [address], [place] [phone] * (ABNORMAL) Parathyroid hormone intact (07/08/2024 11:10 AM EST) [facility] PTH 6.5(L) 18.5 - 88.0 pcg/mL LAB CHEMISTRY METHOD 07/08/2024 3:31 PM EST [facility] Blood Venous blood specimen / Unknown Venipuncture / Unknown 07/08/2024 11:10 AM EST 07/08/2024 11:42 AM EST us Wayne Donahue MD LAB BLOOD ORDERABLES Final Re sult [facility] [address] [place] [address], [place] [phone] * (ABNORMAL) CBC auto differential (07/08/2024 11:10 AM EST) [facility] WBC 18.9(H) 4.8 - 10.8 K/mcL LAB HEMETOLOGY METHOD 07/08/2024 11:[address] [facility] RBC 3.30(L) 3.80 - 4.80 M/mcL LAB HEMETOLOGY METHOD 07/08/2024 11:[address] [facility] Hemoglobin 7.3(L) 11.5 - 16.0 g/dL LAB HEMETOLOGY METHOD 07/08/2024 11:[address] [facility] Hematocrit 23.7(L) 35.0 - 47.0 % LAB HEMETOLOGY METHOD 07/08/2024 11:[address] [facility] MCV 72.3(L) 79.0 - 98.0 FL LAB HEMETOLOGY METHOD 07/08/2024 11:[address] [facility] MCH 22.3(L) 27.0 - 32.0 pcg LAB HEMETOLOGY METHOD 07/08/2024 11:[address] [facility] MCHC 30.8(L) 32.0 - 37.0 g/dL LAB HEMETOLOGY METHOD 07/08/2024 11:[address] [facility] RDW 16.4(H) 11.0 - 15.0 % LAB HEMETOLOGY METHOD 07/08/2024 11:[address] [facility] Platelets 408(H) 130 - 400 K/mcL LAB HEMETOLOGY METHOD 07/08/2024 11:[address] [facility] MPV 8.9 7.0 - 11.0 FL LAB HEMETOLOGY METHOD 07/08/2024 11:[address] [facility] NRBC 0.0 <1.0 % LAB HEMETOLOGY METHOD 07/08/2024 11:[address] [facility] NRBC Absolute 0.00 <0.10 K/mcL LAB HEMETOLOGY METHOD 07/08/2024 11:[address] [facility] Neutrophils Relative 89.5 % LAB HEMETOLOGY METHOD 07/08/2024 11:[address] [facility] Lymphocytes Relative 2.4 % LAB HEMETOLOGY METHOD 07/08/2024 11:[address] [facility] Monocytes Relative 7.0 % LAB HEMETOLOGY METHOD 07/08/2024 11:[address] [facility] Eosinophils Relative 0.2 % LAB HEMETOLOGY METHOD 07/08/2024 11:[address] [facility] Basophils Relative 0.2 % LAB HEMETOLOGY METHOD 07/08/2024 11:[address] [facility] Immature Granulocytes Relative 0.7 % LAB HEMETOLOGY METHOD 07/08/2024 11:[address] [facility] Neutrophils Absolute 16.86(H) 1.50 - 7.00 K/mcL LAB HEMETOLOGY METHOD 07/08/2024 11:[address] [facility] Lymphocytes Absolute 0.46(L) 1.00 - 5.00 K/mcL LAB HEMETOLOGY METHOD 07/08/2024 11:51 AM EST [facility] Monocytes Absolute 1.32(H) 0.20 - 1.00 K/mcL LAB HEMETOLOGY METHOD 07/08/2024 11:[address] [facility] Eosinophils Absolute 0.04 0.00 - 0.50 K/mcL LAB HEMETOLOGY METHOD 07/08/2024 11:51 AM EST [facility] Basophils Absolute 0.04 0.00 - 0.20 K/[facility] LAB HEMETOLOGY METHOD 07/08/2024 11:51 AM EST [facility] Immature Granulocytes Absolute 0.13(H) 0.00 - 0.03 K/mcL LAB HEMETOLOGY METHOD 07/08/2024 11:51 AM EST [facility] Blood Venous blood specimen / Unknown Venipuncture / Unknown 07/08/2024 11:10 AM EST 07/08/2024 11:42 AM EST Jj Wolfe MD LAB BLOOD ORDERABLES [place] l Result Performing Organization Address City/[facility]/ZIP Co de Phone Number [facility] [address] [place] [address], * B-type natriuretic peptide (07/08/2024 11:10 AM EST) BNP 86 <=100 pcg/mL LAB CHEMISTRY METHOD 07/08/2024 12:26 PM EST [facility] Blood Venous blood specimen / Unknown Venipuncture / Unknown 07/08/2024 11:10 AM EST 07/08/2024 11:42 AM EST Jj Wolfe MD LAB BLOOD ORDERABLES [place] l Result [facility] [address] [place] [address], [place] [phone] * Magnesium (07/08/2024 11:10 AM EST) [facility] Magnesium 2.1 1.9 - 2.6 mg/dL LAB CHEMISTRY METHOD 07/08/2024 12:54 PM EST [facility] Comment:Hemolysis present Blood Venous blood specimen / Unknown Venipuncture / Unknown 07/08/2024 11:10 AM EST 07/08/2024 11:42 AM EST Jj Wolfe MD LAB BLOOD ORDERABLES [place] l Result [facility] [address] [place] [address], [place] [phone] * (ABNORMAL) Lipase (07/08/2024 11:10 AM EST) [facility] Lipase <10(L) 13 - 75 unit/L LAB CHEMISTRY METHOD 07/08/2024 12:54 PM EST [facility] Blood Venous blood specimen / Unknown Venipuncture / Unknown 07/08/2024 11:10 AM EST 07/08/2024 11:42 AM EST Jj Wolfe MD LAB BLOOD ORDERABLES [place] l Result [facility] [address] [place] [address], [place] [phone] * (ABNORMAL) Comprehensive metabolic panel (07/08/2024 11:10 AM EST) [facility] Sodium 126(L) 133 - 145 mmol/L LAB CHEMISTRY METHOD 07/08/2024 12:[address] [facility] Potassium 4.2 3.5 - 5.5 mmol/L LAB CHEMISTRY METHOD 07/08/2024 12:54 PM EST [facility] Comment:Hemolysis present Chloride 93(L) 96 - 110 mmol/L LAB CHEMISTRY METHOD 07/08/2024 12:[address] [facility] CO2 21 21 - 32 mmol/L LAB CHEMISTRY METHOD 07/08/2024 12:[address] [facility] Anion Gap 12(H) 3 - 11 LAB CHEMISTRY METHOD 07/08/2024 12:[address] [facility] Glucose 265(H) 70 - 100 mg/dL LAB CHEMISTRY METHOD 07/08/2024 12:[address] [facility] BUN 59(H) 5 - 25 mg/dL LAB CHEMISTRY METHOD 07/08/2024 12:[address] [facility] Comment:Results verified by repeat testing Creatinine 4.10(H) 0.50 - 1.10 mg/dL LAB CHEMISTRY METHOD 07/08/2024 12:[address] [facility] Comment:Results verified by repeat testing eGFR 10(L) >=60 mL/min/1. 73m2 LAB CHEMISTRY METHOD 07/08/2024 12:[address] [facility] Comment:Calculation based on the??Chronic Kidney Disease Epidemiology Collaboration (CKD-EPI) equation refit??without adjustment for race. BUN/Creatinine Ratio 14.4 LAB CHEMISTRY METHOD 07/08/2024 12:[address] [facility] Calcium 10.6(H) 8.5 - 10.5 mg/dL LAB CHEMISTRY METHOD 07/08/2024 12:[address] [facility] AST (SGOT) 57(H) 10 - 42 unit/L LAB CHEMISTRY METHOD 07/08/2024 12:[address] [facility] Comment:Hemolysis present ALT (SGPT) 39 10 - 60 unit/L LAB CHEMISTRY METHOD 07/08/2024 12:[address] [facility] Alkaline Phosphatase 149(H) 42 - 121 unit/L LAB CHEMISTRY METHOD 07/08/2024 12:[address] [facility] Total Protein 6.3 6.0 - 8.0 g/dL LAB CHEMISTRY METHOD 07/08/2024 12:54 PM EST [facility] Albumin 2.1(L) 3.2 - 5.0 g/dL LAB CHEMISTRY METHOD 07/08/2024 12:54 PM EST [facility] Total Bilirubin 0.4 0.0 - 1.4 mg/dL LAB CHEMISTRY METHOD 07/08/2024 12:54 PM EST [facility] Blood Venous blood specimen / Unknown Venipuncture / Unknown 07/08/2024 11:10 AM EST 07/08/2024 11:42 AM EST Jj Wolfe MD LAB BLOOD ORDERABLES [place] l Result Performing Organization Address [facility] Co de Phone Number [facility] [address] [place] [address], [place] [phone] * (ABNORMAL) Troponin I high sensitivity (07/08/2024 11:10 AM EST) High Sensitivity Troponin I 80(H) <=54 ng/L LAB CHEMISTRY METHOD 07/08/2024 12:20 PM EST [facility] Blood Venous blood specimen / Unknown Venipuncture / Unknown 07/08/2024 11:10 AM EST 07/08/2024 11:42 AM EST Narrative [facility] - 07/08/2024 12:20 PM EST High levels of biotin in samples may falsely decrease hsTroponin values. ??Use caution when interpreting hsTroponin results in patients taking biotin who exhibit renal impairment (eGFR <60) or in patients taking more than 20 mg/day of biotin. us Jj Wolfe MD LAB BLOOD ORDERABLES [place] l Result Performing Organization Address [facility]/ZIP Co de Phone Number [facility] [address] [place] [address], [place] [phone] * ECG 12 lead (07/08/2024 10:46 AM EST) Ventricular Rate ECG 94 BPM GEMUSE Atrial Rate 94 BPM GEMUSE P-R Interval 196 ms GEMUSE QRS Duration 118 ms GEMUSE Q-T Interval 354 ms GEMUSE QTc 442 ms GEMUSE P Wave [place] 79 degrees GEMUSE R [place] 15 degrees GEMUSE T [place] 4 degrees GEMUSE ECG Interpretation Sinus rhythm [...] (1 each), oral, Daily, First dose on Thu07/18/24 at [...] PRN, Per current Anti-Xa result, Starting on Thu07/21/24 at 2055, Bolus from infusion. Suggested bolus [...] 20 mEq 20 mEq, oral, Once, On Soco 07/14/24 at 1830, For 1 dose, Tablet [...] mg/m2 ? 1.79 m2), intravenous, Once, On Soco 07/28/24 at 1500, For 1 dose, -The [...] since Thu08/03/2024 at 0821 until manually unheld 09 (Hold - Provider: Jolene Cardona RN - Reason: See Provider Order)2099 (Dose Auto Held - Provider: Steve Cruz MD) 0900 (Not Given - Provider: Jacquelin Davidson RN - Reason: See Provider Order)2099 (Not Given - Provider: Katina Machuca RN - Reason: Other - Comment: held by provider) apixaban (ELIQUIS) tablet 5 mg 5 mg, oral, 2 times daily, First dose (after last modification) on 08/06/24 at 0945, Indication: VTE/PE Treatment 0930 (Given - Provider: Jacquelin Davidson RN) atorvastatin (LIPITOR) tablet 10 mg 10 mg, oral, Nightly, First dose on 07/09/24 at 2100 205 (Given - Provider: María Hawk RN) 1145 (AUG Hold - Provider: Automatic Transfer Provider - Reason: Patient not available)1424 (AUG Unhold - Provider: Automatic Transfer Provider)2124 (Given - Provider: Katina Machuca RN) B [...] at 2100 0853 (Given - Provider: Jolene Cardona RN)210 (Given - Provider: María Hawk RN) 0828 [...] Provider)212 (Given - Provider: Katina Machuca RN) insulin lispro injection 1-6 Units 1-6 [...] BG 130)1745 (Given - Provider: Jolene Cardona RN)2101 (Given - Provider: María Hawk RN) 0720 (Not Given - Provider: Jacquelin Davidson RN - Reason: Patient not available)1056 (Not Given - Provider: Jacquelin Davidson RN - Reason: Patient not available)1145 (AUG Hold - Provider: Automatic Transfer Provider - Reason: Patient not available)142 (AUG Unhold - Provider: Automatic Transfer Provider)1647 (Given - Provider: Jacquelin Davidson RN)212 (Given - Provider: Katina Machuca RN) 0732 (Not Given - Provider: Jacquelin Davidson RN - Reason: Order parameters not met)1128 (Given - Provider: Jacquelin Davidson RN) insulin lispro injection 3 Units 3 Units, subcutaneous, 3 times daily before meals, First dose (after last modification) on 07/18/24 at 0730, Mealtime Insulin - Administer with [...] available)1424 (MAR Unhold - Provider: Automatic Transfer Provider) 0617 [...] Transfer Provider - Reason: Patient not available)1424 ([facility] Unhold - Provider: Automatic Transfer [...] Transfer Provider - Reason: Patient not available)1424 ([facility] Unhold - Provider: Automatic Transfer Provider)2206 (Not Given - Provider: Katina Machuca RN - Reason: Other - Comment: already documented) 0930 (Not Given - Provider: Jacquelin Davidson RN - Reason: Other) sodium chloride 0.9 % flush 10 mL(Linked Group 2) 10 mL, intravenous, 2 times daily, First dose on Thu07/23/24 at 2100 0857 (Given - Provider: Jolnee Cardona, ILIR)2109 (Given - Provider: María Hawk, ILIR) 0829 (Not Given - Provider: Jacquelin Davidson RN - Reason: Patient not available)1145 ([facility] Hold - Provider: Automatic Transfer Provider - Reason: Patient not available)1424 ([facility] Unhold - Provider: Automatic Transfer Provider)2126 [...] Transfer Provider - Reason: Patient not available)142 (AUG Unhold - Provider: Automatic Transfer Provider) thiamine (VITAMIN B-1) tablet 100 mg 100 mg, oral, Daily, First dose on Thu07/18/24 at 1700 0853 (Given - Provider: Jolene Cardona, ILIR) 0829 (Not Given - Provider: Jacquelin Davidson RN - Reason: Patient not available)1145 (AUG Hold - Provider: Automatic Transfer Provider - Reason: Patient not available)1424 ([facility] Unhold - Provider: Automatic Transfer [...] Transfer Provider - Reason: Patient not available)1424 ([facility] Unhold - Provider: Automatic Transfer Provider)2124 (Given - Provider: Katina Machuca, ILIR) acetaminophen (TYLENOL) tablet 650 mg 650 mg, oral, Once as needed, mild pain, headaches, fever - temperature GREATER than 38 C (100.4 F), Starting on Thu07/28/24 at 1140, For 1 dose 1145 (AUG Hold - Provider: Automatic Transfer Provider - Reason: Patient not available)142 (AUG Unhold - Provider: Automatic Transfer Provider)214 (Not [...] unresolved -Administer with 8L of oxygen 1145 ([facility] Hold - Provider: Automatic Transfer Provider - Reason: Patient not available)1424 ([facility] Unhold - Provider: Automatic Transfer Provider) benzonatate (TESSALON) capsule 100 mg 100 mg, oral, 3 times daily PRN, cough, Starting on Thu07/15/24 at 0957, Cough Do not crush or chew., Indications: cough 1145 ([facility] Hold - Provider: Automatic Transfer Provider - Reason: Patient not available)1424 ([facility] Unhold - Provider: Automatic Transfer Provider) dextrose (D50W) 50% injection 12.5 g 12.5 g, intravenous, Every 15 min PRN, low blood sugar, moderate hypoglycemia *Patient is Unconscious, NPO, unable to swallow: BG 54 - 69 mg/dl*, Starting on Thu07/08/24 at 1649 1145 ([facility] Hold - Provider: Automatic Transfer Provider - Reason: Patient not available)1424 ([facility] Unhold - Provider: Automatic Transfer Provider) dextrose (D50W) 50% injection 25 g 25 g, intravenous, Every 15 min PRN, low blood sugar, severe hypoglycemia *Patient is Unconscious, NPO, unable to swallow: BG LESS than 54 mg/dL*, Starting on Thu07/08/24 at 1649 1145 ([facility] Hold - Provider: Automatic Transfer Provider - Reason: Patient not available)1424 ([facility] Unhold - Provider: Automatic Transfer Provider) dextrose 15 gram/60 mL oral solution 15 g 15 g, oral, Every 15 min PRN, low blood sugar, hypoglycemia *Patient conscious AND able to drink and swallow safely*, Starting on Thu07/08/24 at 1649 1145 ([facility] Hold - Provider: Automatic Transfer Provider - Reason: Patient not available)1424 ([facility] Unhold - Provider: Automatic Transfer Provider) dextrose 15 gram/60 mL oral solution 30 g 30 g, oral, Every 15 min PRN, low blood sugar, hypoglycemia *Patient conscious AND able to drink and swallow safely*, Starting on Thu07/08/24 at 1649 1145 ([facility] Hold - Provider: Automatic Transfer Provider - Reason: Patient not available)1424 ([facility] Unhold - Provider: Automatic Transfer [...] years of age, or with asthma 1145 ([facility] Hold - Provider: Automatic Transfer Provider - Reason: Patient not available)1424 ([facility] Unhold - Provider: Automatic Transfer [...] years of age, or with asthma 1145 ([facility] Hold - Provider: Automatic Transfer Provider - Reason: Patient not available)1424 ([facility] Unhold - Provider: Automatic Transfer Provider) EPINEPHrine (ADRENALIN) IM Kit - adult 0.3 mg 0.3 mg, intramuscular, Every 15 min PRN, anaphylaxis, For systolic BP LESS than 90 mmHg, Starting on Soco 07/28/24 at 1140, For 3 doses, May repeat every 15 minutes as needed for a maximum of 3 doses 1145 ([facility] Hold - Provider: Automatic Transfer Provider - Reason: Patient not available)1424 ([facility] Unhold - Provider: Automatic Transfer [...] push over at least 2 minutes 1145 ([facility] Hold - Provider: Automatic Transfer Provider - Reason: Patient not available)1424 ([facility] Unhold - Provider: Automatic Transfer Provider) Glucagon HCl (rDNA) injection 1 mg 1 mg, intramuscular, Once as needed, low blood sugar, severe hypoglycemia, Starting on Thu07/08/24 at 1649, For 1 dose 1145 ([facility] Hold - Provider: Automatic Transfer Provider - Reason: Patient not available)1424 ([facility] Unhold - Provider: Automatic Transfer Provider) hydrALAZINE (APRESOLINE) injection 10 mg 10 mg, intravenous, Every 6 hours PRN, systolic BP greater than:, SBP>160, Starting on Thu07/09/24 at 1504 1145 ([facility] Hold - Provider: Automatic Transfer Provider - Reason: Patient not available)1424 ([facility] Unhold - Provider: Automatic Transfer [...] -Generalized rash Administer over 2 minutes 1145 ([facility] Hold - Provider: Automatic Transfer Provider - Reason: Patient not available)1424 ([facility] Unhold - Provider: Automatic Transfer Provider) HYDROmorphone (PF) injection 0.5 mg 0.5 mg, intravenous, Every 3 hours PRN, severe pain or when therapies for moderate pain were not effective, Starting on Thu07/08/24 at 1437 1145 ([facility] Hold - Provider: Automatic Transfer Provider - Reason: Patient not available)1424 ([facility] Unhold - Provider: Automatic Transfer [...] up to 10 doses (0.4 mg) 1145 ([facility] Hold - Provider: Automatic Transfer Provider - Reason: Patient not available)1424 ([facility] Unhold - Provider: Automatic Transfer [...] (Given - Provider: María Hawk, ILIR) 1145 ([facility] Hold - Provider: Automatic Transfer Provider - Reason: Patient not available)1424 ([facility] Unhold - Provider: Automatic Transfer Provider) oxyCODONE (ROXICODONE) immediate release tablet 5 mg 5 mg, oral, Every 4 hours PRN, moderate pain or when therapies for mild pain were not effective, Starting on Thu07/08/24 at 1437 1145 ([facility] Hold - Provider: Automatic Transfer Provider - Reason: Patient not available)1424 ([facility] Unhold - Provider: Automatic Transfer Provider) polyvinyl alcohol-povidone (PF) (ARTIFICIAL TEARS) 1.4-0.6 % ophthalmic solution 2 drop 2 drop, Both Eyes, Every 2 hours PRN, dry eyes, Starting on Thu07/08/24 at 1746 1122 (Given - Provider: Jolene Cardona, ILIR)2101 (Given - Provider: María Hawk RN) 1145 ([facility] Hold - Provider: Automatic Transfer Provider - Reason: Patient not available)1424 ([facility] Unhold - Provider: Automatic Transfer Provider)212 (Given - Provider: Katina Machuca RN) sodium chloride 0.9 % bolus 500 mL 500 mL, intravenous, at 2,000 mL/hr, Administer over 15 Minutes, Once as needed, for hypotensive management (systolic BP below 90 mmHg), Starting on Soco 07/28/24 at 1140, For 1 dose, Run wide open and await physician orders 1145 ([facility] Hold - Provider: Automatic Transfer Provider - Reason: Patient not available)1424 ([facility] Unhold - Provider: Automatic Transfer Provider) sodium chloride 0.9 % flush 10 mL(Linked Group 1) 10 mL, intravenous, As needed, line care, Starting on Thu07/08/24 at 1437 1145 ([facility] Hold - Provider: Automatic Transfer Provider - Reason: Patient not available)1424 ([facility] Unhold - Provider: Automatic Transfer Provider) sodium chloride 0.9 % flush 10 mL(Linked Group 2) 10 mL, intravenous, As needed, line care, Starting on 07/23/24 at 1617 1145 ([facility] Hold - Provider: Automatic Transfer Provider - Reason: Patient not available)1424 ([facility] Unhold - Provider: Automatic Transfer [...] each new unit of blood administered 1145 ([facility] Hold - Provider: Automatic Transfer Provider - Reason: Patient not available)1424 ([facility] Unhold - Provider: Automatic Transfer [...] each new unit of blood administered 1145 ([facility] Hold - Provider: Automatic Transfer Provider - Reason: Patient not available)1424 ([facility] Unhold - Provider: Automatic Transfer [...] each new unit of blood administered 1145 ([facility] Hold - Provider: Automatic Transfer Provider - Reason: Patient not available)1424 ([facility] Unhold - Provider: Automatic Transfer [...] each new unit of blood administered 1145 ([facility] Hold - Provider: Automatic Transfer Provider - Reason: Patient not available)1424 ([facility] Unhold - Provider: Automatic Transfer [...] 07/16/2024 heparin infusion 100 units/mL in D5W 1 06/29 albumin human 25 % infusion 12.5 g 1 2024 hydrALAZINE (APRESOLINE) injection 10 mg 1 07/09/2024 dextrose (D50W) 50% injection 12.5 g 1 06/29 dextrose (D50W) 50% injection 25 g 1 2024 dextrose 15 gram/60 mL oral solution 15 g 1 07/08/2024 dextrose 15 gram/60 mL oral solution 30 g 1 07/08/2024 ferrous sulfate 300 mg (60 m g elemental iron)/5 mL liquid 300 mg 1 07/08/2024 Glucagon HCl (rDNA) injection 1 mg 1 2024 naloxone (NARCAN) injection 0.04 mg [...] documented as of this encounter Care Teams Psychological Stress Evaluator Relationship Specialty Start Date End Date Eloisa Vázquez DO [address] [place] [id number] PCP - General 04/12/24 documented as of this encounter
--- OUTSIDE RECORDS SUMMARY | 2024-08-16 06:30 | XMS_ITS | Encounter Summary ---
Author Organization [facility] Address [address] [place] [address] Care Team Providers Care Evaporator Helper Name Role Phone Marie Vázquezmankamryn CHERY Primary Care Provider [phone] Encounter Details Date Type Department Care Team (Late st Contact Info) Description 08/11/2024 Telephone [facility] [address] [place] [address] [address] [place] [address] Nalini Clark RN Social History Tobacco Use Types Packs/Day Years [...] 3:24 PM EST Davina Granados RN * Because of a physical, mental, [...] documented in this encounter Progress Notes * Nalini Clark RN - 08/11/2024 3:08 PM EST Daughter calling about Rituximab infusion that was ordered by Dr Wayne. I told her I would look intothis and call her back. I did not see anything in our chart at this time about it being given here.I did reach out to Zamzam Gonzalez- prior auth. (Daughter states her paperwork says [facility] but may also need to reach out to Julius). 1456- Called Dennise back after talking with Zamzam Gonzalez that we did receive phone call today from [facility] and are waiting authorization and order. Discussed with Dennise that with mom at [facility] treatments being MWF this time. documented in this encounter Plan of Treatment Upcoming Encounters Date Type Department Care Team (Late st Contact Info) Description 08/23/2024 3:00 PM EST Office Visit Gastroenterology - [address] [facility] [address] [place] [address] Josiane Smith, MANAGER TRADING [address] [facility] [address] [place] [address] 08/24/2024 11:15 AM EST Office Visit Internal Medicine - [facility] [address] [place] [address] Eloisa Vázquez DO [address] [place] [address] 09/05/2024 10:00 AM EDT Office Visit Endocrinology - [place] [address] [place] [address] Kathy Michelle PA [address] [place] [address] 09/06/2024 11:00 AM EDT Ancillary Procedure [facility] - [facility] [address] [facility] [address] [place] [address] documented as of this encounter Visit Diagnoses Not on filedocumented in this encounter Additional Health Concerns Infection Onset Date Last Indicated Resolved Time Tuberculosis Rule-Out 08/05/2024 08/05/2024 documented as of this encounter Care Teams Evaporator Helper Relationship Specialty Start Date End Date Eloisa Vázquez DO [address] [place] [address] PCP - General 04/12/24 documented as of this encounter
--- OUTSIDE RECORDS SUMMARY | 2024-08-16 06:31 | XMS_ITS | Clinical Summary ---
Author Organization [facility] Address [address] [place] [address] Care Team Providers Care Supervisor Lathing Name Role Phone Eloisa Vázquez DO Primary Care Provider [phone] Allergies No known active allergies Medications cetirizine (ZyrTEC) 10 mg chewable tablet Take [...] by mouth every night at bedtime Active cholecalcifero l (VITAMIN D-3) 50 mcg (2,000 unit) capsule Take 1 capsule (2,000 Units total) by mouth 1 (one) time each day. Active apixaban (ELIQUIS) 5 mg tablet Take 2 tablets (10 mg total) by mouth 2 (two) times a day for 3 days, THEN 1 tablet (5 mg total) 2 (two) times a day. 08/06/19 025 Active predniSONE (DELTASONE) 20 mg tablet Take 3 tablets (60 mg total) by mouth 1 (one) time each day. 08/06/19 025 Active thiamine (VITAMIN B-1) 100 mg tablet Take 1 tablet (100 mg total) by mouth 1 (one) time each day. 08/06/19 025 Active sulfamethoxazo le-trimethopri m (BACTRIM DS,SEPTRA DS) 800-160 mg per tablet Take 1 tablet by mouth 3 (three) times a week for 16 doses. 08/08/19 025 Active polyethylene glycol (MIRALAX) 17 gram packet Take 17 g by mouth 1 (one) time each day if needed for constipation. 08/05/19 025 Active pantoprazole (PROTONIX) 40 mg EC tablet Take 1 tablet (40 mg total) by mouth 1 (one) time each day before breakfast. Do not crush, chew, or split. 08/06/19 025 Active B complex-vitami n C-folic acid (NEPHRO-SAVIAT) 0.8 mg tablet Take 1 tablet by mouth 1 (one) time each day. 08/06/19 025 Active glipiZIDE (GLUCOTROL XL) 5 mg 24 hr tablet TAKE 2 TABLETS BY MOUTH IN THE MORNING AND TAKE 1 TABLET BY MOUTH IN THE AFTERNOON (WITH MEALS) 300 tablet 1 08/12/19 25 Active CALCIUM CARBONATE ORAL Calcium 600mg Take 1 tablet (600 mg total) by mouth daily 025 Discontinued lisinopriL (PRINIVIL,ZEST RIL) 10 mg tablet Take 1 tablet (10 mg total) by mouth daily 025 Discontinued(St op Taking at Discharge) glipiZIDE (GLUCOTROL XL) 5 mg 24 hr tablet TAKE 2 TABLETS BY MOUTH IN THE MORNING AND TAKE 1 TABLET BY MOUTH IN THE AFTERNOON (WITH MEALS) 270 tablet 06/17/20 025 Discontinued Active Problems Patient Care Coordination No te Formatting of this note migh t be different from the original. Barriers: Renal Bx 07/22 w/ path pending, new HD, trend labs, H/H, heparin drip- LLE DVT, repeat Pt eval, lung mass biopsy 07/27 Plan: [facility]st choice - [facility]t onsite HD. [facility] accepting w family to provide HD transportation support. Problem Noted Date Diagnosed Date Pulmonary nodule 07/29/2024 Assessment & Plan (08/15/2024 1:48 PM EST): 79-year-old woman with recent end-stage renal disease [...] these would be a little bit too much for her this point. All questions were answered. Lung mass 06/13/2024 Assessment & Plan (06/13/2024 [...] general and how their size, shape, and gear changer time affect her level of suspicion for [...] weeks. She will need to see her filter bed placer prior to procedure. Hypertension 06/01/2024 Hyperlipidemia 06/01/2024 History of cancer of unknown primary site 2023 CKD (chronic kidney disease) stage 4, GFR 15-29 ml/min 06/01/2024 Iron deficiency anemia 06/01/2024 Impaired renal function 06/01/2024 Type 2 diabetes mellitus wit hout complication, without long-term current use of insulin 06/01/2024 Resolved Problems Problem Noted Date Diagnosed Date Resolved Date Acute encephalopathy 07/08/2024 025 Encounters Date Type Department Care Team Description 08/15/2024 1:30 PM EST Office Visit Thoracic Surgery - [address] [place] [phone] Cecily Montez MD Pulmonary nodule (Primary Dx); Lung mass 08/11/2024 Telephone [facility] [address] [facility] [address] [place] [address] Nalini Clark RN 08/10/2024 10:00 AM EST Office Visit [facility] Hematology Oncology [address] [place] [phone] Jaime Grimaldo MD Lung mass (Primary Dx); Normocytic anemia; Chronic renal failure, stage 5 (CMS/HCC) 08/09/2024 Telephone Nephrology [address] [phone] Chencho Wayne MD provider call back 08/05/2024 11:46 AM EST Anesthesia Event [facility] [place] [address] [place] [phone] Monroe Kim MD 08/05/2024 11:30 AM EST - 08/05/2024 1:30 PM EST Surgery [facility] OR [address] [place] [phone] Cecily Montez MD Navigation bronchoscopy/EBUS [10915 (CPT??) +2 more] 08/01/2024 [facility] [address] [facility] [place] [phone] Eloisa Vázquez, Forms/questionnaires (PFML) 07/08/2024 10:31 AM EST - 08/06/2024 1:09 PM EST Hospital Encounter [facility] Urology Unit [address] [place] [phone] Jj Wolfe MD Flores, Carlos M, MD Japaridze, Anna, MD Santoyo-Pacheco, Omar D, MD Kokosadze, Estate, MD Zipagan, James T, MD Seralathan, Manikandan, MD Anemia, unspecified type (Primary Dx); Hyponatremia; Acute on chronic renal insufficiency; Acute encephalopathy; Bilateral leg edema; Pulmonary nodule Discharge Disposition: Care Home Facility 07/05/2024 Telephone [facility] Cardiology [facility] [address] [phone] Primo Navarro MD Pre-op Visit 06/17/2024 9:56 AM EST - 06/17/2024 11:59 PM EST Hospital Encounter [facility] CT Scan [address] [place] [phone] Lung mass; Neoplasm Discharge Disposition: Home or Self Care 06/17/2024 8:20 AM EST Office Visit [facility] [address] [phone] Primo Navarro MD Primary hypertension (Primary Dx); Lung mass; Preoperative cardiovascular examination; PANIAGUA (dyspnea on exertion); Leg edema 06/14/2024 Telephone Thoracic Surgery [facility] [address] [phone] Cecily Montez MD Procedure ([facility] , ct scan) 06/13/2024 11:00 AM EST Consult Thoracic Surgery - [place] [address] [phone] Cecily Montez MD Lung mass (Primary Dx); Neoplasm 06/06/2024 8:20 AM EST Office Visit [address] [phone] Kathy Michelle PA Type 2 diabetes mellitus without complication, without long-term current use of insulin (CMS/HCC) (Primary Dx); CKD (chronic kidney disease) stage 4, GFR 15-29 ml/min (CMS/HCC); Primary hypertension 06/01/2024 11:15 AM EST Telemedicine Internal Medicine - [address] [phone] Eloisa Vázquez DO History of cancer of unknown primary site (Primary Dx); Impaired renal function; Type 2 diabetes mellitus without complication, without long-term current use of insulin (CMS/HCC); Hypertension, unspecified type; Hyperlipidemia, unspecified hyperlipidemia type; Iron deficiency anemia, unspecified iron deficiency anemia type 06/01/2024 Telephone Internal Medicine - [address] [phone] Eloisa Vázquez DO 05/30/2024 10:15 AM EST Office Visit [facility] Hematology Oncology [address] [place] [phone] Jaime Grimaldo MD Pulmonary nodules (Primary Dx); Normocytic anemia 05/23/2024 4:55 PM EST - 05/23/2024 11:59 PM EST Hospital Encounter [facility] Xray [address] [place] [address] Discharge Disposition: Home or Self Care 05/23/2024 11:59 AM EST - 05/23/2024 11:59 PM EST Hospital Encounter [facility] Interventional Radiology [address] [place] [phone] Pulmonary nodules; Type 2 diabetes mellitus without complication, without long-term current use of insulin (CMS/HCC); CKD (chronic kidney disease) stage 4, GFR 15-29 ml/min (CMS/HCC) Discharge Disposition: Home or Self Care 05/16/2024 Telephone [facility] [address] [facility] [address] [place] [phone] Jaime Grimaldo MD Appointment from Last 3 Months Surgical History Surgery [...] COPD Brother 3 Alive COPD Brother 4 [place] Daughter Alive Healthy Father (Age 54) [place] Mother (Age 93) Osteoporos is, HTN, Arthritis [...] 12.8 oz) 08/06/2024 4:11 AM EST Height 162.6 cm (5' 4 ) 08/15/2024 1:31 PM EST Body Mass Index 26.42 07/09/2024 12:21 AM EST Plan of Treatment Upcoming Encounters Date Type Department Care Team (Late st Contact Info) Description 08/23/2024 3:00 PM EST Office Visit Gastroenterology - [address] [facility] [address] [place] [phone] Josiane Smith NP [address] [facility] [address] [place] [address] 08/24/2024 11:15 AM EST Office Visit Internal Medicine - [facility] [address] [place] [address] Eloisa Vázquez, [address] [place] [address] 09/05/2024 10:00 AM EDT Office Visit Endocrinology - [place] [address] [place] [phone] Kathy Michelle PA [address] [place] [address] 09/06/2024 11:00 AM EDT Ancillary Procedure [facility] [address] [place] [address] Health Maintenance Due Date Last Done Comments Diabetes: Annual Foot Exam 1953 Diabetes: Annual Retina Eye Exam 1955 Zoster Vaccines (1 of 2) 1962 RSV Immunization Patients 60+ Years Old (1 - 1-dose 75+ series) 2018 Depression Screening 06/07/2022 Medicare Annual Wellness Visit 06/07/2022 Social Influencers of Health Screening 06/07/2022 Osteoporosis Screening (Bone Density Screening) 04/15/2023 04/15/2018 COVID-19 Vaccine ( season) 2024 04/21/2022, 10/14/2021, 03/27/2021, Additional history exists Diabetes: Blood Sugar Control Test (HGBA1C) 02/05/2025 08/08/2024, 08/08/2024, 05/31/2024, Additional history exists Falls Risk Assessment 08/06/2025 08/06/2024 Hypertension/CHF/CAD Annual BMP Blood Test 08/10/2025 08/10/2024, 08/05/2024, 08/04/2024, Additional history exists Cholesterol Screening (Lipid Panel) 08/08/2029 08/08/2024, 05/31/2024 DTaP,Tdap,and Td Vaccines (3 - Td or Tdap) 09/29/2032 09/29/2022, 08/12/2012 Pneumococcal Vaccine: 50+ Years Completed 05/31/2015, 08/02/2010 [...] this topic Medical Devices Implanted Type Area Bead Machine Operator Device Identifier Shelf Expiration Date Model / Serial / Lot Cath Dial W/Vt Kt 14.3mb08ac Palindrome Precision - [id number] - [id number] Implanted:Qty: 1 on 07/15/2024 by Fela Palomo MD at [facility] Dialysis Catheters Left: Chest Wall [facility] [id number] 09/26/2028 [id number] / [id number] / [id number] Sponge Surgifoam Gel 12 X 7mm - [id number] - [id number] Implanted:Qty: 1 on 05/23/2024 by Fela Palomo MD at [facility] Hemostasis Right: Lung [facility] [employer] [id number] 08/27/20271971 / [id number] / Sponge Surgifoam Gel 12 X 7mm - [id number] - [id number] Implanted:Qty: 1 on 07/22/2024 by Fela Palomo MD at [facility] Hemostasis Left: Kidney [facility] [employer] [id number] 05/24/20281971 / [id number] / Procedures Procedure Name Priority Date/Time Associated [...] Routine 08/05/2024 12:32 PM EST Pulmonary nodule CULTURE FUNGAL, OTHER Routine 08/05/2024 12:32 PM EST Pulmonary nodule XR CHEST 1 VIEW Routine 08/05/2024 12:29 PM EST NON-GYNECOLOGIC CYTOLOGY Routine 025 12:20 PM EST Pulmonary nodule TH AN ENDOTRACHEAL(NO CHARGE) Routine 08/05/2024 12:08 PM EST IA BRONCHOSCOPY RIGID/FLEXIBLE W/EBUS >=3 MEDIASTINAL/HILAR LYMPH NODES 08/05/2024 11:46 AM EST Pulmonary nodule IA BRONCHOSCOPY INCL FLUROSCOPIC GUIDANCE W PLCMNT FIDUCIAL MARKER SGL/MULT 08/05/2024 11:46 AM EST Pulmonary nodule IA BRONCHOSCOPY RIGID/FLEXIBLE INCL FLUORO W/THERAPY ASPIRATION INITIAL 08/05/2024 11:46 AM EST Pulmonary nodule BASIC METABOLIC PANEL STAT 08/05/2024 7:04 AM EST COMPLETE BLOOD COUNT Timed 08/05/2024 7:03 AM EST POCT GLUCOSE BLOOD Routine 08/04/2024 8 :39 PM EST POCT GLUCOSE BLOOD Routine 08/04/2024 [...] BLOOD Routine 07/11/2024 8: 17 AM EST IA IMMUNOFIXATION ELECTROPHORESIS SERUM Routine 07/11/2024 6:21 AM [...] BLOOD Routine 07/08/2024 6: 19 PM EST IA PROTEIN ELECTROPHORETIC FRACTIONATION & QUANTITATION SERUM Routine [...] EST ECG OUTSIDE 07/08/2024 ECG ANNOTATED 07/08/2024 CT CHEST WO CONTRAST Routine 06/17/2024 10:27 [...] complication, without long-term current use of insulin (CMS/[facility]) CKD (chronic kidney disease) stage 4, GFR 15-29 ml/min (CMS/HCC) MICROALBUMIN CREATININE URINE RATIO Routine 06/06/2024 9:27 [...] - 100 mg/dL 08/06/2024 11:09 AM EST [facility] Blood Capillary blood specimen / Unknown 08/06/2024 11:07 AM EST 08/06/2024 11:10 AM EST Steve Cruz MD LAB POINT OF CA RE TEST DOCKED DEVICE UNSOLICITED RESULTS Final Result [facility] [address] [place] [address], [place] [phone] * XR Chest 1 View (08/05/2024 1:43 PM EST) Only the most recent of3 resultswithin the time period is included. Anatomical [...] Signed Date: 08/05/2024 13:49 ET Workstation ID: [id number] Transcribed By: Self Edit Transcribed Date: 08/05/2024 [...] Signed Date: 08/05/2024 13:49 ET Workstation ID: [id number] Transcribed By: Self Edit Transcribed Date: 08/05/2024 13:46 ET us Cecily Montez MD IMG XR PROCEDURES Final Result * Culture bronchial with gram stain (08/05/2024 12:32 PM EST) Bronchial Culture No growth at 3 days 08/08/2024 9:42 AM EST [facility] Gram Stain Result No polymorphonuclear leukocytes, No epithelial cells, and No organisms noted 08/08/2024 9:42 AM EST [facility] Wash Structure of upper lobe of right lung / Unknown 08/05/2024 12:32 PM EST 08/05/2024 1:17 PM EST us Cecily Montez MD LAB MICROBIOLOGY - GENERAL ORDER SYLVAIN Final Result [facility] [address] [place] [address], [place] [phone] * Concentration (08/05/2024 12:32 PM EST) AFB Concentration Performed 025 3:05 PM EST [facility] Wash Structure of upper lobe of right lung / Unknown 08/05/2024 12:32 PM EST 08/05/2024 1:17 PM EST Narrative [facility] - 08/06/2024 3:05 PM EST Performed at: ??01 - [facility] [address] ??[id number] Rehab Care Assistant: Diane Belle MD, Phone: ??[phone] Cecily Montez MD LAB BLOOD ORDERABLES Final Resul t [facility] * Acid fast bacilli stain (08/05/2024 12:32 PM EST) AFB Stain Result No Acid fast bacilli seen on direct smear (Fuchsin method, 1000x) No Acid Fast Bacilli seen on direct smear 08/05/2024 2:18 PM EST [facility] Wash Structure of upper lobe of right lung / Unknown 08/05/2024 12:32 PM EST 08/05/2024 1:17 PM EST us Cecily Montez MD LAB MICROBIOLOGY - GENERAL ORDER SYLVAIN Final Result Performing Organization Address [facility] Co de Phone Number [facility] [address] [place] [address], [place] [phone] * Non-gynecologic cytology (08/05/2024 12:20 PM EST) [...] lymph node elements present. 08/09/2024 1:04 PM [facility] Specimen A Adequacy Satisfactory for evaluation 08/09/2024 1:04 PM [facility] Specimen B Adequacy Satisfactory for evaluation 08/09/2024 1:04 PM [facility] Specimen C Adequacy Satisfactory for evaluation 08/09/2024 1:04 PM [facility] Specimen D Adequacy Satisfactory for evaluation 08/09/2024 1:04 PM [facility] Specimen E Adequacy Specimen processed and examined, but unsatisfactory for eval of abnormal epithelial 08/09/2024 1:04 PM [facility] Specimen F Adequacy Satisfactory for evaluation 08/09/2024 1:04 PM [facility] Gross Description A. Lung, Right [...] time 54 hours. 08/09/2024 1:04 PM EST [facility] Disclaimer Unless otherwise specified, all tissue is 10% NB formalin fixed and paraffin embedded. Technical cytopathology services provided by [facility], at [address] [place] [address], [place] [address] (CLIA # [id number]/Gladys Prince MD, Buffer Machine.) 08/09/2024 1:04 PM EST [facility] Brushing, function (observable entity) Structure of [...] MD LAB CYTOLOGY ORDERABLES Final Re sult [facility]) [facility] [address] [place] [address], [place] [phone] * TH AN ENDOTRACHEAL(NO CHARGE) (08/05/2024 12:08 PM EST) Candelaria Romano CRNA - 08/05/2024 12:08 PM EST Candelaria Tatum CRNA ? 08/05/2024 12:10 PM General Information and Staff Patient location during procedure: [place] Anesthesiologist: Monroe Kim MD Resident/ASSISTANT PROFESSOR OF LIFE SCIENCES: Candelaria Tatum CRNA Performed: resident/ASSISTANT PROFESSOR OF LIFE SCIENCES/CAA Performed by: Candelaria Tatum CRNA Authorized by: [...] difficulty assessment: 1 - vent by mask Monroe Kim MD ANESTHESIA ORDERABLES Final Re sult * (ABNORMAL) Basic metabolic panel (08/05/2024 7:04 AM EST) Only the most recent of30 resultswithin the time period is included. Sodium 133 133 - 145 mmol/L LAB CHEMISTRY METHOD 08/05/2024 8:01 AM EST [facility] Potassium 4.5 3.5 - 5.5 mmol/L LAB CHEMISTRY METHOD 08/05/2024 8:01 AM EST [facility] Chloride 96 96 - 110 mmol/L LAB CHEMISTRY METHOD 08/05/2024 8:01 AM [facility] CO2 32 21 - 32 mmol/L LAB CHEMISTRY METHOD 08/05/2024 8:01 AM [facility] Anion Gap 5 3 - 11 LAB CHEMISTRY METHOD 08/05/2024 8:01 AM [facility] Glucose 138(H) 70 - 100 mg/dL LAB CHEMISTRY METHOD 08/05/2024 8:01 AM [facility] BUN 53(H) 5 - 25 mg/dL LAB CHEMISTRY METHOD 08/05/2024 8:01 AM [facility] Creatinine 3.91(H) 0.50 - 1.10 mg/dL LAB CHEMISTRY METHOD 08/05/2024 8:01 AM [facility] eGFR 11(L) >=60 mL/min/1. 73m2 LAB CHEMISTRY METHOD 08/05/2024 8:01 AM [facility] Comment:Calculation based on the??Chronic Kidney Disease Epidemiology Collaboration (CKD-EPI) equation refit??without adjustment for race. BUN/Creatinine Ratio 13.6 LAB CHEMISTRY METHOD 08/05/2024 8:01 AM [facility] Calcium 8.4(L) 8.5 - 10.5 mg/dL LAB CHEMISTRY METHOD 08/05/2024 8:01 AM [facility] Blood Venous blood specimen / Unknown Venipuncture / Unknown 08/05/2024 7:04 AM EST 08/05/2024 7:34 AM EST Steve Cruz MD LAB BLOOD ORDERABLES Fi nal Result [facility] [address] [place] [address], * (ABNORMAL) CBC - Every 3 Days (08/05/2024 7:03 AM EST) Only the most recent of13 resultswithin the time period is included. WBC 8.8 4.8 - 10.8 K/mcL LAB HEMETOLOGY METHOD 08/05/2024 7:42 AM [facility] RBC 2.90(L) 3.80 - 4.80 M/mcL LAB HEMETOLOGY METHOD 08/05/2024 7:42 AM [facility] Hemoglobin 7.9(L) 11.5 - 16.0 g/dL LAB HEMETOLOGY METHOD 08/05/2024 7:42 AM [facility] Hematocrit 25.5(L) 35.0 - 47.0 % LAB HEMETOLOGY METHOD 08/05/2024 7:42 AM [facility] MCV 87.6 79.0 - 98.0 FL LAB HEMETOLOGY METHOD 08/05/2024 7:42 AM [facility] MCH 27.1 27.0 - 32.0 pcg LAB HEMETOLOGY METHOD 08/05/2024 7:42 AM [facility] MCHC 31.0(L) 32.0 - 37.0 g/dL LAB HEMETOLOGY METHOD 08/05/2024 7:42 AM [facility] RDW 21.9(H) 11.0 - 15.0 % LAB HEMETOLOGY METHOD 08/05/2024 7:42 AM [facility] Platelets 180 130 - 400 K/mcL LAB HEMETOLOGY METHOD 08/05/2024 7:42 AM [facility] MPV 10.8 7.0 - 11.0 FL LAB HEMETOLOGY METHOD 08/05/2024 7:42 AM [facility] NRBC 0.0 <1.0 % LAB HEMETOLOGY METHOD 08/05/2024 7:42 AM [facility] NRBC Absolute 0.00 <0.10 K/mcL LAB HEMETOLOGY METHOD 08/05/2024 7:42 AM [facility] Blood Venous blood specimen / Unknown Venipuncture / Unknown 08/05/2024 7:03 AM EST 08/05/2024 7:34 AM EST Lencho Stuart MD LAB BLOOD ORDERABLES Final R esult [facility] [address] [place] [address], [place] [phone] * (ABNORMAL) Creatinine, Serum - Every 7 Days (08/04/2024 6:31 AM EST) Creatinine 2.49(H) 0.50 - 1.10 mg/dL LAB CHEMISTRY METHOD 08/04/2024 7:31 AM EST [facility] eGFR 19(L) >=60 mL/min/1. 73m2 LAB CHEMISTRY METHOD 08/04/2024 7:31 AM EST [facility] Comment:Calculation based on the??Chronic Kidney Disease Epidemiology Collaboration (CKD-EPI) equation refit??without adjustment for race. Blood Venous blood specimen / Unknown Venipuncture / Unknown 08/04/2024 6:31 AM EST 08/04/2024 6:54 AM EST Jonny Mathur MD LAB BLOOD ORDERABLES Final Re sult Performing Organization Address [facility]/ZIP Co de Phone Number [facility] [address] [place] [address], * Hepatitis B surface antigen with reflex to confirmation (08/03/2024 8:49 AM EST) Only the most recent of3 resultswithin the time period is included. Hepatitis B Surface Ag Negative Negative LAB CHEMISTRY METHOD 08/03/2024 10:11 AM EST [facility] Blood Venous blood specimen / Unknown Venipuncture / Unknown 08/03/2024 8:49 AM EST 08/03/2024 9:22 AM EST Narrative [facility] - 08/03/2024 10:11 AM EST Over the counter supplements containing high doses of biotin may interfere with this assay. ??If interference is suspected, patients shoud be retested after refraining from biotin supplements for 72 hours. us Steve Cruz MD LAB BLOOD ORDERABLES Fi nal Result Performing Organization Address [facility] de Phone Number [facility] [address] [place] [address], * Hepatitis B surface antibody quantitative (08/03/2024 8:49 AM EST) Only the most recent of2 resultswithin the time period is included. Pathologist [facility] Hepatitis B Surface Ab Negative Negative LAB CHEMISTRY METHOD 08/03/2024 9:59 AM EST [facility] Hepatitis B Surface Ab Quantitative <3.1 mIU/mL LAB CHEMISTRY METHOD 08/03/2024 9:59 AM EST [facility] Blood Venous blood specimen / Unknown Venipuncture / Unknown 08/03/2024 8:49 AM EST 08/03/2024 9:22 AM EST Narrative [facility] - 08/03/2024 9:59 AM EST >=10 mIU/mL is considered to be consistent with immunity. us Steve Cruz MD LAB BLOOD ORDERABLES Fi nal Result Performing Organization Address [facility] Phone Number [facility] [address] [place] [address], * (ABNORMAL) CBC auto differential (08/03/2024 6:01 AM EST) Only the most recent of24 resultswithin the time period is included. Pathologist [facility] WBC 7.5 4.8 - 10.8 K/[facility] LAB HEMETOLOGY METHOD 08/03/2024 7:49 AM EST [facility] RBC 2.90(L) 3.80 - 4.80 M/[facility] LAB HEMETOLOGY METHOD 08/03/2024 7:49 AM [facility] Hemoglobin 7.8(L) 11.5 - 16.0 g/dL LAB HEMETOLOGY METHOD 08/03/2024 7:49 AM [facility] Hematocrit 24.7(L) 35.0 - 47.0 % LAB HEMETOLOGY METHOD 08/03/2024 7:49 AM [facility] MCV 85.8 79.0 - 98.0 FL LAB HEMETOLOGY METHOD 08/03/2024 7:49 AM [facility] MCH 27.1 27.0 - 32.0 pcg LAB HEMETOLOGY METHOD 08/03/2024 7:49 AM [facility] MCHC 31.6(L) 32.0 - 37.0 g/dL LAB HEMETOLOGY METHOD 08/03/2024 7:49 AM [facility] RDW 21.6(H) 11.0 - 15.0 % LAB HEMETOLOGY METHOD 08/03/2024 7:49 AM [facility] Platelets 188 130 - 400 K/mcL LAB HEMETOLOGY METHOD 08/03/2024 7:49 AM [facility] MPV 11.2(H) 7.0 - 11.0 FL LAB HEMETOLOGY METHOD 08/03/2024 7:49 AM [facility] NRBC 0.0 <1.0 % LAB HEMETOLOGY METHOD 08/03/2024 7:49 AM [facility] NRBC Absolute 0.00 <0.10 K/mcL LAB HEMETOLOGY METHOD 08/03/2024 7:49 AM [facility] Neutrophils Relative 77.2 % LAB HEMETOLOGY METHOD 08/03/2024 7:49 AM [facility] Lymphocytes Relative 12.8 % LAB HEMETOLOGY METHOD 08/03/2024 7:49 AM [facility] Monocytes Relative 8.0 % LAB HEMETOLOGY METHOD 08/03/2024 7:49 AM [facility] Eosinophils Relative 0.4 % LAB HEMETOLOGY METHOD 08/03/2024 7:49 AM [facility] Basophils Relative 0.1 % LAB HEMETOLOGY METHOD 08/03/2024 7:49 AM [facility] Immature Granulocytes Relative 1.5 % LAB HEMETOLOGY METHOD 08/03/2024 7:49 AM [facility] Neutrophils Absolute 5.78 1.50 - 7.00 K/mcL LAB HEMETOLOGY METHOD 08/03/2024 7:49 AM [facility] Lymphocytes Absolute 0.96(L) 1.00 - 5.00 K/mcL LAB HEMETOLOGY METHOD 08/03/2024 7:49 AM [facility] Monocytes Absolute 0.60 0.20 - 1.00 K/mcL LAB HEMETOLOGY METHOD 08/03/2024 7:49 AM [facility] Eosinophils Absolute 0.03 0.00 - 0.50 K/mcL LAB HEMETOLOGY METHOD 08/03/2024 7:49 AM [facility] Basophils Absolute 0.01 0.00 - 0.20 K/mcL LAB HEMETOLOGY METHOD 08/03/2024 7:49 AM [facility] Immature Granulocytes Absolute 0.11(H) 0.00 - 0.03 K/mcL LAB HEMETOLOGY METHOD 08/03/2024 7:49 AM [facility] Blood Venous blood specimen / Unknown Venipuncture / Unknown 08/03/2024 6:01 AM EST 08/03/2024 7:27 AM EST us Steve Cruz MD LAB BLOOD ORDERABLES Fi nal Result [facility] [address] [place] [address], [place] [phone] * Phosphorus (08/03/2024 6:01 AM EST) Only the most recent of4 resultswithin the time period is included. Phosphorus 4.3 2.5 - 4.5 mg/dL LAB CHEMISTRY METHOD 08/03/2024 8:11 AM EST [facility] Blood Venous blood specimen / Unknown Venipuncture / Unknown 08/03/2024 6:01 AM EST 08/03/2024 7:27 AM EST us Steve Cruz MD LAB BLOOD ORDERABLES Fi nal Result Performing Organization Address [facility] Co de Phone Number [facility] [address] [place] [address], * Magnesium (08/03/2024 6:01 AM EST) Only the most recent of9 resultswithin the time period is included. Magnesium 2.1 1.9 - 2.6 mg/dL LAB CHEMISTRY METHOD 08/03/2024 8:11 AM EST [facility] Blood Venous blood specimen / Unknown Venipuncture / Unknown 08/03/2024 6:01 AM EST 08/03/2024 7:27 AM EST us Steve Cruz MD LAB BLOOD ORDERABLES Fi nal Result [facility] [address] [place] [address], [place] [phone] * Type and screen (08/02/2024 3:04 PM EST) Only the most recent of5 resultswithin the time period is included. ABO Group O 08/02/2024 4:52 PM EST [facility] Rh Type Positive 08/02/2024 4:52 PM [facility] Antibody Screen Negative 08/02/2024 4:52 PM [facility] Blood Venous blood specimen / Unknown Venipuncture / Unknown 08/02/2024 3:04 PM EST 08/02/2024 4:07 PM EST Steve Cruz MD LAB BLOOD BANK TEST ORD ERABLES Final Result Performing Organization Address City/[facility]/ZIP Co de Phone Number [facility] [address] [place] [address], [place] [phone] * Prepare RBC: 1 Units (08/02/2024 2:09 PM EST) Only the most recent of4 resultswithin the time period is included. [facility] Signature Product Code [id number] 08/02/2024 6:27 PM [facility] Unit Number [id number] 08/02/19 6:27 PM [facility] Crossmatch Compatible 08/02/2024 5:03 PM [facility] Dispense Status Transfused 08/02/2024 6:27 PM [facility] Unit ABO Rh OPOS 08/02/2024 6:27 PM [facility] Unit Expiration Date Time [id number] 08/02/2024 6:27 PM [facility] Unit Blood Type 5100 08/02/2024 6:27 PM [facility] Blood Venous blood specimen / Unknown 08/02/2024 2:09 PM EST 08/02/2024 4:07 PM EST Steve Cruz MD BLOOD BANK PRODUCT ORDE RABLES Final Result [facility] [address] [place] [address], [place] [phone] * (ABNORMAL) Hemoglobin and hematocrit (07/31/2024 2:30 PM EST) Only the most recent of4 resultswithin the time period is included. [facility] Hemoglobin 7.3(L) 11.5 - 16.0 g/dL LAB HEMETOLOGY METHOD 07/31/2024 3:12 PM EST [facility] Hematocrit 23.7(L) 35.0 - 47.0 % LAB HEMETOLOGY METHOD 07/31/2024 3:12 PM EST [facility] Blood Venous blood specimen / Unknown Venipuncture / Unknown 07/31/2024 2:30 PM EST 07/31/2024 3:05 PM EST Jonny Mathur MD LAB BLOOD ORDERABLES Final Re sult [facility] [address] [place] [address], [place] [phone] * (ABNORMAL) Hepatic Function Panel - STAT (07/30/2024 11:52 AM EST) Only the most recent of3 resultswithin the time period is included. [facility] Total Protein 5.2(L) 6.0 - 8.0 g/dL LAB CHEMISTRY METHOD 07/30/2024 12:56 PM EST [facility] Albumin 2.4(L) 3.2 - 5.0 g/dL LAB CHEMISTRY METHOD 07/30/2024 12:56 PM EST [facility] Total Bilirubin 0.4 0.0 - 1.4 mg/dL LAB CHEMISTRY METHOD 07/30/2024 12:56 PM EST [facility] Bilirubin, Direct 0.2 0.0 - 0.3 mg/dL LAB CHEMISTRY METHOD 07/30/2024 12:56 PM EST [facility] Bilirubin, Indirect 0.2 0.0 - 1.1 mg/dL LAB CHEMISTRY METHOD 07/30/2024 12:56 PM EST [facility] ALT (SGPT) 17 10 - 60 unit/L LAB CHEMISTRY METHOD 07/30/2024 12:56 PM EST [facility] AST (SGOT) 12 10 - 42 unit/L LAB CHEMISTRY METHOD 07/30/2024 12:56 PM EST [facility] Alkaline Phosphatase 80 42 - 121 unit/L LAB CHEMISTRY METHOD 07/30/2024 12:56 PM [facility] Blood Venous blood specimen / Unknown Venipuncture / Unknown 07/30/2024 11:52 AM EST 07/30/2024 12:28 PM EST Jonny Mathur MD LAB BLOOD ORDERABLES Final Re sult Performing Organization Address [facility]/ZIP Co de Phone Number [facility] [address] [place] [address], [place] [phone] * (ABNORMAL) Heparin and low molecular weight anti Xa level (07/30/2024 6:10 AM EST) Only the most recent of32 resultswithin the time period is included. Heparin Anti-Xa 1.16(H) 0.30 - 0.70 I Unit/mL LAB COAGULATION METHOD 07/30/2024 6:53 AM EST [facility] Blood Venous blood specimen / Unknown Venipuncture / Unknown 07/30/2024 6:10 AM EST 07/30/2024 6:26 AM EST Narrative [facility] - 07/30/2024 6:53 AM EST Therapeutic range listed is for Unfractionated Heparin. LMW Heparin therapeutic range: 0.50-1.20 IU/mL us Jonny Mathur MD LAB BLOOD ORDERABLES Final Re sult Performing Organization Address City/[facility]/ZIP Co de Phone Number [facility] [address] [place] [address], [place] [phone] * Hepatitis B core antibody IgM (07/28/2024 12:19 PM EST) Hep B Core IgM Negative Negative LAB CHEMISTRY METHOD 07/28/2024 3:22 PM EST [facility] Blood Venous blood specimen / Unknown Venipuncture / Unknown 07/28/2024 12:19 PM EST 07/28/2024 12:35 PM EST [facility] - 07/28/2024 3:22 PM EST Over the counter supplements containing high doses of biotin may interfere with this assay. ??If interference is suspected, patients shoud be retested after refraining from biotin supplements for 72 hours. us Miguel Quiles MD LAB BLOOD ORDERABLES Final Res ult Performing Organization Address [facility] de Phone Number [facility] [address] [place] [address], * Hepatitis B surface antibody (07/28/2024 12:19 PM EST) Pathologist [facility] Hepatitis B Surface Ab Negative Negative LAB CHEMISTRY METHOD 07/28/2024 1:40 PM EST [facility] Hepatitis B Surface Ab Quantitative <3.1 mIU/mL LAB CHEMISTRY METHOD 07/28/2024 1:40 PM EST [facility] Blood Venous blood specimen / Unknown Venipuncture / Unknown 07/28/2024 12:19 PM EST 07/28/2024 12:35 PM EST [facility] - 07/28/2024 1:40 PM EST >=10 mIU/mL is considered to be consistent with immunity. us Miguel Quiles MD LAB BLOOD ORDERABLES Final Res ult Performing Organization Address [facility]/ZIP Co de Phone Number [facility] [address] [place] [address], * Transfuse RBC (07/23/2024 6:19 PM EST) Only the most recent of3 resultswithin the time period is included. Lencho Stuart MD BLOOD TRANSFUSION ORDERABLES Final Result * Insert Midline (07/23/2024 4:52 PM EST) Narrative Maggy Spencer RN - 07/23/2024 4:52 PM EST Maggy Spencer RN ? 07/23/2024 ??5:02 PM Midline Insertion Procedure Note Procedure: Insertion of 18g/10cm Bard Powerglide midline Lot: [id number] Exp: 2025-05-28 Indications: ??Difficult draw with frequent [...] Signed Date: 07/22/2024 17:00 ET Workstation ID: [id number] Transcribed By: Self Edit Transcribed Date: 07/22/2024 [...] of fentanyl administered during the procedure. Scanner: e[employer]os[employer] [address] Dose reduction technique: AEC [...] of fentanyl administered during the procedure. Scanner: [employer] [address] Dose reduction technique: AEC [...] Signed Date: 07/22/2024 17:00 ET Workstation ID: [id number] Transcribed By: Self Edit Transcribed Date: 07/22/2024 [...] * Tissue exam (07/22/2024 3:13 PM EST) Only the most recent of2 resultswithin the time period is included. Addendum [facility] Kidney (addendum) This case was sent to [facility], Department of Pathology, [place], [place] (CLIA: [id number]). Their diagnosis is summarized as follows: Pathologic [...] report for full kidney biopsy diagnosis from [facility], [place], [place]) 08/12/2024 10:52 AM [facility] Addendum electronically signed by Mitchell Prince MD on 08/12/2024 at 10:52 AM Final Diagnosis Kidney, left-biopsies for routine, immunofluorescence and electron microscopy: -Submitted in toto to [facility] -See addendum report 08/12/2024 10:52 AM EST [facility] Gross Description A. Kidney, Left, : Labeled kidney L . Received fresh in saline are 3 perez-pink soft tissue cores, ranging from 0.7 x 0.1 cm to 1.7 x 0.1 cm, which are transfered to formalin for light microscopy, Mick fixative for Immunofluorescence, and Glutaraldehyde for electron microscopy. The specimen is entirely submitted to [facility] for analysis. ELOISE 08/12/2024 10:52 AM EST [facility] Disclaimer Unless otherwise specified, all tissue is 10% NB formalin fixed and paraffin embedded. 08/12/2024 10:52 AM [facility] Tissue Left kidney structure / Unknown 07/22/2024 3:13 PM EST 07/22/2024 3:39 PM EST Fela Palomo MD LAB PATHOLOGY ORDERABLES Edited Result - Final Performing Organization Address [facility]/ZIP Co de Phone Number [facility] [address] [place] [address], [place] [phone] * (ABNORMAL) Prothrombin time with INR (07/22/2024 11:00 AM EST) Only the most recent of4 resultswithin the time period is included. Protime 16.3(H) 10.6 - 13.9 sec LAB COAGULATION METHOD 07/22/2024 1:11 PM [facility] INR 1.3 LAB COAGULATION METHOD 07/22/2024 1:11 PM [facility] Blood Venous blood specimen / Unknown Venipuncture / Unknown 07/22/2024 11:00 AM EST 07/22/2024 11:22 AM EST Lencho Stuart MD LAB BLOOD ORDERABLES Final R esult [facility] [address] [place] [address], [place] [phone] * SST tube (07/22/2024 10:53 AM EST) Only the most recent of2 resultswithin the time period is included. Extra Tube Hold for add-ons. 07/22/2024 1:01 PM EST [facility] Comment:Auto resulted. Blood Venous blood specimen / Unknown 07/22/2024 10:53 AM EST 07/22/2024 11:25 AM EST Lencho Stuart MD LAB BLOOD ORDERABLES Final R esult [facility] [address] [place] [address], [place] [phone] * Lavender tube (07/22/2024 10:53 AM EST) Extra Tube Hold for add-ons. 07/22/2024 1:01 PM EST [facility] Comment:Auto resulted. Blood Venous blood specimen / Unknown 07/22/2024 10:53 AM EST 07/22/2024 11:25 AM EST Lencho Stuart MD LAB BLOOD ORDERABLES Final R esult Performing Organization Address City/[facility] Co de Phone Number [facility] [address] [place] [address], [place] [phone] * Activated Partial Thromboplastin Time - STAT (07/20/2024 2:30 PM EST) Only the most recent of3 resultswithin the time period is included. aPTT 30.0 24.1 - 39.3 sec LAB COAGULATION METHOD 07/20/2024 3:06 PM EST [facility] Blood Venous blood specimen / Unknown Venipuncture / Unknown 07/20/2024 2:30 PM EST 07/20/2024 2:52 PM EST Lencho Stuart MD LAB BLOOD ORDERABLES Final R esult [facility] [address] [place] [address], [place] [phone] * (ABNORMAL) Microalbumin creatinine urine ratio (07/19/2024 12:01 PM EST) Only the most recent of2 resultswithin the time period is included. Creatinine, Urine 41.0 mg/dL LAB CHEMISTRY METHOD 07/19/2024 1:46 PM EST [facility] Microalb, Ur 1,480.0(H ) 0.0 - 29.0 mg/L LAB CHEMISTRY METHOD 07/19/2024 1:46 PM EST [facility] Microalb/Crea t Ratio 3,610(H) <30 mg/g creat LAB CHEMISTRY METHOD 07/19/2024 1:46 PM EST [facility] Urine Urine specimen obtained by clean catch procedure / Unknown Non-blood Collection / Unknown 07/19/2024 12:01 PM EST 07/19/2024 12:30 PM EST Miguel Quiles MD LAB URINE ORDERABLES Final Res ult Performing Organization Address City/[facility]/ZIP Co de Phone Number [facility] [address] [place] [address], [place] [phone] * Creatinine, urine, random (07/19/2024 12:01 PM EST) Only the most recent of2 resultswithin the time period is included. Creatinine, Urine 41.0 mg/dL LAB CHEMISTRY METHOD 07/19/2024 1:17 PM EST [facility] Urine Urine specimen obtained by clean catch procedure / Unknown Non-blood Collection / Unknown 07/19/2024 12:01 PM EST 07/19/2024 12:30 PM EST us Miguel Quiles MD LAB URINE ORDERABLES Final Res ult [facility] [address] [place] [address], [place] [phone] * (ABNORMAL) Parathyroid hormone related protein (07/19/2024 7:55 AM EST) [facility] PTH-related Protein (PTHrP) 24(H) 11 - 20 pg/mL 07/26/2024 4:37 PM EST [facility] Comment: This is a C-terminal PTH-RP assay. PTH-RP is useful in the differential diagnosis of hypercalcemia and levels may be elevated in patients with tumor-associated hypercalcemia. Elevated results may also be observed in patients with renal disease. This test was developed and its analytical performance characteristics have been determined by [facility]. It has not been cleared or approved by FDA. This assay has been validated pursuant to the CLIA regulations and is used for clinical purposes. Test Performed at: [facility] [address] ??[id number] ? I Bethany GUERRERO, PhD, NINA Blood Venous blood specimen / Unknown Venipuncture / Unknown 07/19/2024 7:55 AM EST 07/19/2024 7:55 AM EST Jesus Manuel HEDRICK LAB BLOOD ORDERABLES Final Resu lt [facility] [address] [place] [address] * (ABNORMAL) Anti-neutrophilic cytoplasmic antibody (07/19/2024 6:52 AM EST) Only the most recent of2 resultswithin the time period is included. [facility] Myeloperoxidase Ab Negative Negative LAB CHEMISTRY METHOD 07/20/2024 12:10 PM EST [facility] Myeloperoxidase Ab, Quant 1 <=20 units LAB CHEMISTRY METHOD 07/20/2024 12:10 PM EST [facility] Proteinase-3 Ab Positive(A ) Negative LAB CHEMISTRY METHOD 07/20/2024 12:10 PM EST [facility] Proteinase-3 Ab Quant 165(H) <=20 units LAB CHEMISTRY METHOD 07/20/2024 12:10 PM EST [facility] Blood Venous blood specimen / Unknown Venipuncture / Unknown 07/19/2024 6:52 AM EST 07/19/2024 7:21 AM EST Miguel Quiles MD LAB BLOOD ORDERABLES Final Res ult Performing Organization Address [facility]/ZIP Co de Phone Number [facility] [address] [place] [address], [place] [phone] * Robertson urine culture tube (07/18/2024 6:10 AM EST) Only the most recent of2 resultswithin the time period is included. Extra Tube Hold for add-ons. 07/18/2024 8:01 AM [facility] Comment:Auto resulted. Urine Urine specimen obtained by clean catch procedure / Unknown 07/18/2024 6:10 AM EST 07/18/2024 6:37 AM EST Lencho Stuart MD LAB URINE ORDERABLES Final R esult Performing Organization Address [facility] de Phone Number [facility] [address] [place] [address], [place] [phone] * (ABNORMAL) Urinalysis microscopic only (07/18/2024 6:09 AM EST) RBC, Urine 10(H) 0 - 4 /HPF 07/18/2024 7:53 AM [facility] WBC, Urine >100(H) 0 - 4 /HPF 07/18/2024 7:53 AM [facility] Squamous Epithelial, Urine 10 0 - 60 /LPF 07/18/2024 7:53 AM [facility] Non-Squamous Epithelial, Urine 2-5 Transitional epithelial cells. /LPF 07/18/2024 7:53 AM EST [facility] Bacteria, Urine Many(A) Negative /HPF 07/18/2024 7:53 AM EST [facility] Other Casts, Urine Rare Coarse Granular casts. /LPF 07/18/2024 7:53 AM EST [facility] Urine Indwelling urinary catheter / Unknown Non-blood Collection / Unknown 07/18/2024 6:09 AM EST 07/18/2024 6:36 AM EST us Gian Crum MD LAB URINE ORDERABLES F inal Result Performing Organization Address [facility]/ZIP Co de Phone Number [facility] [address] [place] [address], [place] [phone] * (ABNORMAL) Calcium, ionized (07/18/2024 6:07 AM EST) Only the most recent of2 resultswithin the time period is included. Calcium Ionized 4.28(L) 4.50 - 5.30 mg/dL 07/18/2024 6:46 AM EST [facility] Blood Venous blood specimen / Unknown 07/18/2024 6:07 AM EST 07/18/2024 6:33 AM EST us Gian Crum MD LAB BLOOD ORDERABLES F inal Result Performing Organization Address City/[facility]/ZIP Co de Phone Number [facility] [address] [place] [address], [place] [phone] * Vascular US duplex lower extremity venous [...] Signed Date: 07/16/2024 12:33 ET Workstation ID: [id number] Transcribed By: Self Edit Transcribed Date: 07/16/2024 [...] Signed Date: 07/16/2024 12:33 ET Workstation ID: [id number] Transcribed By: Self Edit Transcribed Date: 07/16/2024 12:28 ET us Gian Crum MD CV VASCULAR PROCEDURES Final Result * IR Insert Tunneled CVC wo Port or Pump More 5yrs Left (07/15/2024 3:36 PM EST) Anatomical Region Laterality Modality Left Interventional R adiology 07/15/2024 3:45 PM EST Impressions 07/15/2024 3:47 PM EST Successful placement of a 14 Turkmen 23 cm dual-lumen cuffed tunneled dialysis catheter with the tip at the cavoatrial junction. This line may be used immediately. -------- FINAL REPORT -------- Dictated By: Fela Palomo Dictated Date: 07/15/2024 15:45 ET Assigned Physician: Fela Palomo Reviewed and Electronically Signed By: Fela Palomo Signed Date: 07/15/2024 15:47 ET Workstation ID: [id number] Transcribed By: Self Edit Transcribed Date: 07/15/2024 [...] The needle was exchanged for the 4 Turkmen transition sheath. A 0.035 wire was then advanced through ??the sheath and into the inferior vena cava under fluoroscopy. The sheath was then exchanged for a 7 Turkmen vascular dilator. Attention was then turned to the right upper chest and the appropriate area was anesthetized with 2% lidocaine. A small dermatotomy was performed and then a tunnel was created from the dermatotomy to the initial venous access site. The catheter was advanced through the tunnel. ??The initial venous access site was then serially dilated up to a 15 Turkmen peel-away sheath. The catheter was then advanced [...] The needle was exchanged for the 4 Turkmen transition sheath. A 0.035wire was then advanced through the sheath and into the inferior vena cavaunder fluoroscopy. The sheath was then exchanged for a 7 Turkmen vasculardilator. Attention was then turned to the right upper chest and the appropriatearea was anesthetized with 2% lidocaine. A small dermatotomy was performedand then a tunnel was created from the dermatotomy to the initial venousaccess site. The catheter was advanced through the tunnel. The initialvenous access site was then serially dilated up to a 15 Turkmen peel-awaysheath. The catheter was then advanced through [...] mGy IMPRESSION: Successful placement of a 14 Turkmen 23 cm dual-lumen cuffed tunneleddialysis catheter with the tip at the cavoatrial junction. This line maybe used immediately. -------- FINAL REPORT -------- Dictated By: Fela Palomo Dictated Date: 07/15/2024 15:45 ET Assigned Physician: Fela Palomo Reviewed and Electronically Signed By: Fela Palomo Signed Date: 07/15/2024 15:47 ET Workstation ID: [id number] Transcribed By: Self Edit Transcribed Date: 07/15/2024 15:45 ET us Chencho Wayne MD IMG IR PROCEDURES Final Result * (ABNORMAL) Renal function panel (07/15/2024 8:56 AM EST) Sodium 132(L) 133 - 145 mmol/L LAB CHEMISTRY METHOD 07/15/2024 10:26 AM [facility] Potassium 3.8 3.5 - 5.5 mmol/L LAB CHEMISTRY METHOD 07/15/2024 10:26 AM [facility] Chloride 104 96 - 110 mmol/L LAB CHEMISTRY METHOD 07/15/2024 10:26 AM [facility] CO2 16(L) 21 - 32 mmol/L LAB CHEMISTRY METHOD 07/15/2024 10:26 AM [facility] Anion Gap 12(H) 3 - 11 LAB CHEMISTRY METHOD 07/15/2024 10:26 AM [facility] Glucose 80 70 - 100 mg/dL LAB CHEMISTRY METHOD 07/15/2024 10:26 AM [facility] BUN 97(H) 5 - 25 mg/dL LAB CHEMISTRY METHOD 07/15/2024 10:26 AM [facility] Creatinine 6.70(H) 0.50 - 1.10 mg/dL LAB CHEMISTRY METHOD 07/15/2024 10:26 AM [facility] eGFR 6(L) >=60 mL/min/1. 73m2 LAB CHEMISTRY METHOD 07/15/2024 10:26 AM [facility] Comment:Calculation based on the??Chronic Kidney Disease Epidemiology Collaboration (CKD-EPI) equation refit??without adjustment for race. BUN/Creatinine Ratio 14.5 LAB CHEMISTRY METHOD 07/15/2024 10:26 AM [facility] Albumin 3.3 3.2 - 5.0 g/dL LAB CHEMISTRY METHOD 07/15/2024 10:26 AM [facility] Comment:Results verified by repeat testing Calcium 8.4(L) 8.5 - 10.5 mg/dL LAB CHEMISTRY METHOD 07/15/2024 10:26 AM [facility] Phosphorus 4.2 2.5 - 4.5 mg/dL LAB CHEMISTRY METHOD 07/15/2024 10:26 AM [facility] Blood Venous blood specimen / Unknown Venipuncture / Unknown 07/15/2024 8:56 AM EST 07/15/2024 9:43 AM EST us Chencho Wayne MD LAB BLOOD ORDERABLES Final Resu lt [facility] [address] [place] [address], * (ABNORMAL) RBC morphology review (07/15/2024 6:56 AM EST) Rbc Morphology Present( A) Consistent with indices, Normal for [place] LAB HEMETOLOGY METHOD 07/15/2024 8:54 AM EST [facility] Platelet Morphology - WAM See Note(A) Normal LAB HEMETOLOGY METHOD 07/15/2024 8:54 AM EST [facility] Comment:PLT: Normal Polychromasia Present Present( A) (none) LAB HEMETOLOGY METHOD 07/15/2024 8:54 AM EST [facility] Pappenheimer Bodies Present Present( A) (none) LAB HEMETOLOGY METHOD 07/15/2024 8:54 AM EST [facility] Schistocytes Present < 5%(A) (none) LAB HEMETOLOGY METHOD 07/15/2024 8:54 AM EST [facility] Blood Venous blood specimen / Unknown Venipuncture / Unknown 07/15/2024 6:56 AM EST 07/15/2024 7:52 AM EST us Gian Crum MD LAB BLOOD ORDERABLES F inal Result [facility] [address] [place] [address], [place] [phone] * Extractable Nuclear Antibodies Profile (07/14/2024 6:00 AM EST) SM Ab Negative Negative LAB CHEMISTRY METHOD 07/17/2024 12:29 PM EST [facility] SM Antibody Quant 2 <20 units LAB CHEMISTRY METHOD 07/17/2024 12:29 PM EST [facility] [employer] DEVELOP[employer] SPECIALIST Ab Negative Negative LAB CHEMISTRY METHOD 07/17/2024 12:29 PM EST [facility] [employer]ELOP[employer]IST Antibody Quant 1 <20 units LAB CHEMISTRY METHOD 07/17/2024 12:29 PM EST [facility] Blood Venous blood specimen / Unknown 07/14/2024 6:00 AM EST 07/14/2024 6:35 AM EST us Gian Crum MD LAB BLOOD ORDERABLES F inal Result Performing Organization Address [facility] Co de Phone Number [facility] [address] [place] [address], [place] [phone] * (ABNORMAL) C3 complement (07/14/2024 6:00 AM EST) C3 Complement 78(L) 88 - 201 mg/dL LAB CHEMISTRY METHOD 07/14/2024 11:20 AM EST [facility] Blood Venous blood specimen / Unknown 07/14/2024 6:00 AM EST 07/14/2024 6:35 AM EST us Gian Crum MD LAB BLOOD ORDERABLES F inal Result Performing Organization Address [facility] Co de Phone Number [facility] [address] [place] [address], * C4 complement (07/14/2024 6:00 AM EST) Pathologist [facility] C4 Complement 18 16 - 47 mg/dL LAB CHEMISTRY METHOD 07/14/2024 11:20 AM EST [facility] Blood Venous blood specimen / Unknown 07/14/2024 6:00 AM EST 07/14/2024 6:35 AM EST us Gian Crum MD LAB BLOOD ORDERABLES F inal Result Performing Organization Address City/[facility]/ZIP Co de Phone Number [facility] [address] [place] [address], [place] [phone] * (ABNORMAL) Sedimentation rate (07/13/2024 6:38 AM EST) Pathologist [facility] Sed Rate 84(H) 0 - 30 mm/hr LAB HEMETOLOGY METHOD 07/13/2024 7:32 AM EST [facility] Blood Venous blood specimen / Unknown Venipuncture / Unknown 07/13/2024 6:38 AM EST 07/13/2024 6:51 AM EST Gian Crum MD LAB BLOOD ORDERABLES F inal Result Performing Organization Address [facility]/ZIP Co de Phone Number [facility] [address] [place] [address], [place] [phone] * Uric acid (07/13/2024 6:38 AM EST) Only the most recent of2 resultswithin the time period is included. Uric Acid 7.5 3.1 - 7.8 mg/dL LAB CHEMISTRY METHOD 07/13/2024 7:44 AM EST [facility] Blood Venous blood specimen / Unknown Venipuncture / Unknown 07/13/2024 6:38 AM EST 07/13/2024 6:50 AM EST Chencho Wayne MD LAB BLOOD ORDERABLES Final Resu lt Performing Organization Address [facility]/ZIP Co de Phone Number [facility] [address] [place] [address], [place] [phone] * (ABNORMAL) Protein and creatinine with ratio, urine (07/12/2024 3:27 PM EST) Protein, Urine 192 mg/dL LAB CHEMISTRY METHOD 07/12/2024 6:44 PM EST [facility] Prot/Creat, Ur 3.00(H) <=0.20 mg/mg creat LAB CHEMISTRY METHOD 07/12/2024 6:44 PM EST [facility] Creatinine, Urine 64.0 mg/dL LAB CHEMISTRY METHOD 07/12/2024 6:44 PM EST [facility] Urine Urine specimen obtained by clean catch procedure / Unknown Non-blood Collection / Unknown 07/12/2024 3:27 PM EST 07/12/2024 4:10 PM EST Chencho Wayne MD LAB URINE ORDERABLES Final Resu lt Performing Organization Address City/[facility]/ZIP Co de Phone Number [facility] [address] [place] [address], [place] [phone] * Sodium, urine, random (07/12/2024 3:27 PM EST) Sodium, Ur 34 mmol/L LAB CHEMISTRY METHOD 07/12/2024 6:44 PM EST [facility] Urine Urine specimen obtained by clean catch procedure / Unknown Non-blood Collection / Unknown 07/12/2024 3:27 PM EST 07/12/2024 4:10 PM EST Aye HEDRICK LAB URINE ORDERABLES Final Re sult Performing Organization Address [facility]/ZIP Co de Phone Number [facility] [address] [place] [address], [place] [phone] * Osmolality, urine (07/12/2024 3:27 PM EST) Osmolality, Urine 397 300 - 1,300 mOsm/kg LAB CHEMISTRY METHOD 07/12/2024 5:57 PM EST [facility] Urine Urine specimen obtained by clean catch procedure / Unknown Non-blood Collection / Unknown 07/12/2024 3:27 PM EST 07/12/2024 4:10 PM EST Aye HEDRICK LAB URINE ORDERABLES Final Re sult Performing Organization Address City/[facility]/ZIP Co de Phone Number [facility] [address] [place] [address], [place] [phone] * CT Chest wo Contrast (07/12/2024 12:48 [...] Small bilateral pleural effusions, new. Starr HEDRICK ([id number]) -------- FINAL REPORT -------- Dictated By: Edilia Durbin Dictated Date: 07/12/2024 13:07 ET Assigned Physician: Edilia Durbin Reviewed and Electronically Signed By: Edilia Durbin Signed Date: 07/12/2024 13:19 ET Workstation ID: [id number] Transcribed By: Self Edit Transcribed Date: 07/12/2024 13:07 ET Narrative 07/12/2024 1:19 PM EST History: Abnormal chest radiograph. The patient underwent nondiagnostic CT- guided biopsy of the right apical lung nodule on 05/23/24. Comparison: Thoracic CT 06/17/24, 03/21/24 Technique: Helical volumetric imaging of the thorax was performed without IV contrast. DLP: 613.10 mGy/cm [employer] VCT Iterative reconstruction technique Findings: Respiratory motion [...] was performed withoutIV contrast. DLP: 613.10 mGy/cm [employer] VCT Iterative reconstruction technique Findings: Respiratory motion [...] Small bilateral pleural effusions, new. Telerad RYLEY ([id number]) -------- FINAL REPORT -------- Dictated By: Ediila Durbin Dictated Date: 07/12/2024 13:07 ET Assigned Physician: Edilia Durbin Reviewed and Electronically Signed By: Edilia Durbin Signed Date: 07/12/2024 13:19 ET Workstation ID: [id number] Transcribed By: Self Edit Transcribed Date: 07/12/2024 13:07 ET Gian Crum MD IMG CT PROCEDURES [place] Result * (ABNORMAL) Procalcitonin (07/12/2024 6:19 AM EST) Procalcitonin 3.11(H) <=0.16 ng/mL LAB CHEMISTRY METHOD 07/12/2024 12:23 PM EST [facility] Blood Venous blood specimen / Unknown Venipuncture / Unknown 07/12/2024 6:19 AM EST 07/12/2024 6:56 AM EST Narrative [facility] - 07/12/2024 12:23 PM EST Procalcitonin [...] MD LAB BLOOD ORDERABLES F inal Result [facility] [address] [place] [address], * (ABNORMAL) C-reactive protein (07/12/2024 6:19 AM EST) [facility] C-Reactive Protein 16.60(H) <=0.50 mg/dL LAB CHEMISTRY METHOD 07/12/2024 10:35 AM EST [facility] Blood Venous blood specimen / Unknown Venipuncture / Unknown 07/12/2024 6:19 AM EST 07/12/2024 6:56 AM EST us Gian Crum MD LAB BLOOD ORDERABLES F inal Result Performing Organization Address City/[facility]/ZIP Co de Phone Number [facility] [address] [place] [address], [place] [phone] * (ABNORMAL) Lipase (07/12/2024 6:19 AM EST) Only the most recent of2 resultswithin the time period is included. Pathologist [facility] Lipase <10(L) 13 - 75 unit/L LAB CHEMISTRY METHOD 07/12/2024 3:26 PM [facility] Blood Venous blood specimen / Unknown Venipuncture / Unknown 07/12/2024 6:19 AM EST 07/12/2024 6:56 AM EST us Gian Crum MD LAB BLOOD ORDERABLES F inal Result Performing Organization Address [facility]/ZIP Co de Phone Number [facility] [address] [place] [address], [place] [phone] * Pathologist Review Immunofixation (07/11/2024 6:21 AM EST) Pathologist [facility] Pathologist Interpretation Reviewed by Rosenda Galeana MD 07/13/2024 4:13 PM [facility] Blood Venous blood specimen / Unknown Venipuncture / Unknown 07/11/2024 6:21 AM EST 07/11/2024 6:43 AM EST us Chencho Wayne MD LAB BLOOD ORDERABLES Final Resu lt Performing Organization Address City/[facility]/ZIP Co de Phone Number [facility] [address] [place] [address], [place] [phone] * Immunofixation electrophoresis serum (07/11/2024 6:21 AM EST) Pathologist [facility] Immunofixation Result, Serum Faint restriction of IgG [place], not observed on SPEP . Follow-up in 6 months if clinically indicated. LAB CHEMISTRY METHOD 07/13/2024 4:13 PM EST [facility] Blood Venous blood specimen / Unknown Venipuncture / Unknown 07/11/2024 6:21 AM EST 07/11/2024 6:43 AM EST us Chencho Wayne MD LAB BLOOD ORDERABLES Final Resu lt [facility] [address] [place] [address], * Immunoglobulins IgG, IgA, IgM (07/11/2024 6:21 AM EST) [facility] Total IgG 1,090 549 - 1,584 mg/dL LAB CHEMISTRY METHOD 07/11/2024 7:29 AM EST [facility] IgA 172 61 - 348 mg/dL LAB CHEMISTRY METHOD 07/11/2024 7:29 AM EST [facility] IgM 38 23 - 259 mg/dL LAB CHEMISTRY METHOD 07/11/2024 7:29 AM EST [facility] Blood Venous blood specimen / Unknown Venipuncture / Unknown 07/11/2024 6:21 AM EST 07/11/2024 6:42 AM EST us Chencho Wayne MD LAB BLOOD ORDERABLES Final Resu lt [facility] [address] [place] [address], [place] [phone] * (ABNORMAL) Triiodothyronine free (07/10/2024 5:16 AM EST) T3, Free 154(L) 230 - 420 pcg/dL LAB CHEMISTRY METHOD 07/10/2024 2:10 PM EST [facility] Blood Venous blood specimen / Unknown Venipuncture / Unknown 07/10/2024 5:16 AM EST 07/10/2024 6:42 AM EST Maria Alejandra Melendez MD LAB BLOOD ORDERABLES Final Res ult Performing Organization Address City/[facility]/ZIP Co de Phone Number [facility] [address] [place] [address], [place] [phone] * Thyroxine free (07/10/2024 5:16 AM EST) Free T4 0.92 0.70 - 1.80 ng/dL LAB CHEMISTRY METHOD 07/10/2024 2:04 PM EST [facility] Blood Venous blood specimen / Unknown Venipuncture / Unknown 07/10/2024 5:16 AM EST 07/10/2024 6:42 AM EST Maria Alejandra Melendez MD LAB BLOOD ORDERABLES Final Res ult Performing Organization Address [facility] Co de Phone Number [facility] [address] [place] [address], [place] [phone] * (ABNORMAL) Parathyroid hormone intact (07/10/2024 5:16 AM EST) Only the most recent of2 resultswithin the time period is included. PTH 10.5(L) 18.5 - 88.0 pcg/mL LAB CHEMISTRY METHOD 07/10/2024 1:47 PM EST [facility] Blood Venous blood specimen / Unknown Venipuncture / Unknown 07/10/2024 5:16 AM EST 07/10/2024 6:42 AM EST Maria Alejandra Melendez MD LAB BLOOD ORDERABLES Final Res ult Performing Organization Address City/[facility] Co de Phone Number [facility] [address] [place] [address], [place] [phone] * Creatine kinase (07/09/2024 6:25 AM EST) Pathologist [facility] Total CK 172 22 - 269 unit/L LAB CHEMISTRY METHOD 07/09/2024 8:11 AM EST [facility] Blood Venous blood specimen / Unknown Venipuncture / Unknown 07/09/2024 6:25 AM EST 07/09/2024 7:11 AM EST us Aye HEDRICK LAB BLOOD ORDERABLES Final Re sult Performing Organization Address [facility] de Phone Number [facility] [address] [place] [address], [place] [phone] * Green LI heparin tube (07/08/2024 9:50 PM EST) [facility] Extra Tube Hold for add-ons. 07/09/2024 12:01 AM EST [facility] Comment:Auto resulted. Blood Venous blood specimen / Unknown 07/08/2024 9:50 PM EST 07/08/2024 10:41 PM EST Wayne Donahue MD LAB BLOOD ORDERABLES Final Re sult Performing Organization Address [facility]/ZIP Co de Phone Number [facility] [address] [place] [address], [place] [phone] * Culture blood (07/08/2024 9:49 PM EST) Only the most recent of2 resultswithin the time period is included. Pathologist [facility] Culture, Blood No growth at 5 days 07/13/2024 10:01 PM EST [facility] Blood Venous blood specimen / Unknown Venipuncture / Unknown 07/08/2024 9:49 PM EST 07/08/2024 9:54 PM EST Aye HEDRICK LAB MICROBIOLOGY - GENERAL OR DERABLES Final Result [facility] [address] [place] [address], [place] [phone] * Lactate (07/08/2024 9:42 PM EST) Lactate 1.3 mmol/L 07/08/2024 10:30 PM [facility] Blood Venous blood specimen / Unknown Venipuncture / Unknown 07/08/2024 9:42 PM EST 07/08/2024 9:54 PM EST Aye HEDRICK LAB BLOOD ORDERABLES Final Re sult Performing Organization Address [facility]/ZIP Co de Phone Number [facility] [address] [place] [address], [place] [phone] * (ABNORMAL) Electrolyte panel (07/08/2024 8:30 PM EST) Only the most recent of2 resultswithin the time period is included. Sodium 130(L) 133 - 145 mmol/L LAB CHEMISTRY METHOD 07/08/2024 11:37 PM [facility] Potassium 4.0 3.5 - 5.5 mmol/L LAB CHEMISTRY METHOD 07/08/2024 11:37 PM [facility] Chloride 98 96 - 110 mmol/L LAB CHEMISTRY METHOD 07/08/2024 11:37 PM [facility] CO2 22 21 - 32 mmol/L LAB CHEMISTRY METHOD 07/08/2024 11:37 PM [facility] Anion Gap 10 3 - 11 LAB CHEMISTRY METHOD 07/08/2024 11:37 PM [facility] Blood Venous blood specimen / Unknown Venipuncture / Unknown 07/08/2024 8:30 PM EST 07/08/2024 8:37 PM EST Aye HEDRICK LAB BLOOD ORDERABLES Final Re sult Performing Organization Address City/[facility]/ZIP Co de Phone Number [facility] [address] [place] [address], [place] [phone] * PATHOLOGIST REVIEW PROTEIN ELECTROPHORESIS (07/08/2024 5:52 PM EST) Pathologist [facility] Pathologist Interpretation Reviewed by Rosenda Galeana MD 07/14/2024 9:21 AM [facility] Blood Venous blood specimen / Unknown Venipuncture / Unknown 07/08/2024 5:52 PM EST 07/08/2024 6:00 PM EST Aye HEDRICK LAB BLOOD ORDERABLES Final Re sult Performing Organization Address City/[facility]/ZIP Co de Phone Number [facility] [address] [place] [address], [place] [phone] * (ABNORMAL) Protein electrophoresis, serum (07/08/2024 5:52 PM EST) [facility] Total Protein 6.4 6.0 - 8.0 g/dL LAB CHEMISTRY METHOD 07/14/2024 9:21 AM [facility] Albumin, Serum 2.2(L) 2.9 - 4.1 g/dL LAB CHEMISTRY METHOD 07/14/2024 9:21 AM [facility] Alpha 1 Globulin (g/dL) 0.6(H) 0.1 - 0.5 g/dL LAB CHEMISTRY METHOD 07/14/2024 9:21 AM [facility] Alpha 2 Globulin (g/dL) 1.2 0.7 - 1.5 g/dL LAB CHEMISTRY METHOD 07/14/2024 9:21 AM [facility] Beta (g/dL) 1.0 0.7 - 1.5 g/dL LAB CHEMISTRY METHOD 07/14/2024 9:21 AM [facility] Gamma Globulin (g/dL) 1.5 0.7 - 1.9 g/dL LAB CHEMISTRY METHOD 07/14/2024 9:21 AM [facility] SPEP Interpretation Hypoalbuminem ia, suggestive of malnutrition, decreased hepatic synthesis or renal/GI loss Elevated alpha-1 fraction, suggestive of acute or or chronic inflammation. LAB CHEMISTRY METHOD 07/14/2024 9:21 AM [facility] Blood Venous blood specimen / Unknown Venipuncture / Unknown 07/08/2024 5:52 PM EST 07/08/2024 6:00 PM EST Aye HEDRICK LAB BLOOD ORDERABLES Final Re sult Performing Organization Address City/[facility]/ZIP Co de Phone Number [facility] [address] [place] [address], [place] [phone] * Protein, total (07/08/2024 5:52 PM EST) Total Protein 6.4 6.0 - 8.0 g/dL LAB CHEMISTRY METHOD 07/08/2024 6:30 PM [facility] Blood Venous blood specimen / Unknown Venipuncture / Unknown 07/08/2024 5:52 PM EST 07/08/2024 6:00 PM EST Aye HEDRICK LAB BLOOD ORDERABLES Final Re sult [facility] [address] [place] [address], [place] [phone] * (ABNORMAL) Serum albumin (07/08/2024 5:52 PM EST) Albumin 2.1(L) 3.2 - 5.0 g/dL LAB CHEMISTRY METHOD 07/08/2024 6:34 PM EST [facility] Blood Venous blood specimen / Unknown Venipuncture / Unknown 07/08/2024 5:52 PM EST 07/08/2024 6:00 PM EST us Aye HEDRICK LAB BLOOD ORDERABLES Final Re sult [facility] ([facility]) [facility] [address] [place] [address], [place] [phone] * US Retroperitoneal Complete (07/08/2024 4:30 PM EST) Anatomical Region Laterality Modality Body Ultrasound 07/10/2024 2:07 PM EST Impressions 07/10/2024 2:08 PM EST Normal appearance of the kidneys. -------- FINAL REPORT -------- Dictated By: Primo Dee Dictated Date: 07/10/2024 14:07 ET Assigned Physician: Primo Dee Reviewed and Electronically Signed By: Primo Dee Signed Date: 07/10/2024 14:08 ET Workstation ID: [id number] Transcribed By: Self Edit Transcribed Date: 07/10/2024 [...] Signed Date: 07/10/2024 14:08 ET Workstation ID: [id number] Transcribed By: Self Edit Transcribed Date: 07/10/2024 14:07 ET us Aye HEDRICK IM US PROCEDURES Final Resul t * Respiratory virus panel molecular study (07/08/2024 2:59 PM EST) Adenovirus Detection by PCR Not Detected Not Detected LAB MICROBIOLOGY METHOD 07/08/2024 4:18 PM [facility] Influenza A PCR Not Detected Not Detected LAB MICROBIOLOGY METHOD 07/08/2024 4:18 PM EST [facility] Influenza B PCR Not Detected Not Detected LAB MICROBIOLOGY METHOD 07/08/2024 4:18 PM EST [facility] Coronavirus 229E Not Detected Not Detected LAB MICROBIOLOGY METHOD 07/08/2024 4:18 PM [facility] Coronavirus HKU1 Not Detected Not Detected LAB MICROBIOLOGY METHOD 07/08/2024 4:18 PM [facility] Coronavirus OC43 Not Detected Not Detected LAB MICROBIOLOGY METHOD 07/08/2024 4:18 PM EST [facility] Coronavirus NL63 Not Detected Not Detected LAB MICROBIOLOGY METHOD 07/08/2024 4:18 PM EST [facility] Parainfluenza Virus 1 Not Detected Not Detected LAB MICROBIOLOGY METHOD 07/08/2024 4:18 PM EST [facility] Parainfluenza Virus 2 Not Detected Not Detected LAB MICROBIOLOGY METHOD 07/08/2024 4:18 PM [facility] Parainfluenza Virus 3 Not Detected Not Detected LAB MICROBIOLOGY METHOD 07/08/2024 4:18 PM EST [facility] Parainfluenza Virus 4 Not Detected Not Detected LAB MICROBIOLOGY METHOD 07/08/2024 4:18 PM [facility] RSV PCR Not Detected Not Detected LAB MICROBIOLOGY METHOD 07/08/2024 4:18 PM [facility] Human Metapneumovirus A and B Not Detected Not Detected LAB MICROBIOLOGY METHOD 07/08/2024 4:18 PM [facility] Rhinovirus/Entero virus Not Detected Not Detected LAB MICROBIOLOGY METHOD 07/08/2024 4:18 PM [facility] Bordetella pertussis Not Detected Not Detected LAB MICROBIOLOGY METHOD 07/08/2024 4:18 PM [facility] Bordetella parapertussis Not Detected Not Detected LAB MICROBIOLOGY METHOD 07/08/2024 4:18 PM [facility] Mycoplasma pneumo by PCR Not Detected Not Detected LAB MICROBIOLOGY METHOD 07/08/2024 4:18 PM [facility] Chlamydia pneumoniae Not Detected Not Detected LAB MICROBIOLOGY METHOD 07/08/2024 4:18 PM [facility] SARS COV-2 Not Detected Not Detected LAB MICROBIOLOGY METHOD 07/08/2024 4:18 PM [facility] Swab Both anterior nares / Unknown Non-blood Collection / Unknown 07/08/2024 2:59 PM EST 07/08/2024 3:15 PM EST [facility] - 07/08/2024 4:18 PM EST Testing was performed using the [employer] Respiratory Pathogen PCR Assay. All results must [...] MICROBIOLOGY - GENERAL OR DERABLES Final Result [facility] [address] [place] [address], * XR Chest 2 Views (07/08/2024 2:01 [...] Signed Date: 07/08/2024 14:07 ET Workstation ID: [id number] Transcribed By: Self Edit Transcribed Date: 07/08/2024 [...] Signed Date: 07/08/2024 14:07 ET Workstation ID: [id number] Transcribed By: Self Edit Transcribed Date: 07/08/2024 14:06 ET Jj Wolfe MD IMG XR PROCEDURES Final R esult * (ABNORMAL) Troponin I high sensitivity (07/08/2024 1:18 PM EST) Only the most recent of2 resultswithin the time period is included. [facility] High Sensitivity Troponin I 81(H) <=54 ng/L LAB CHEMISTRY METHOD 07/08/2024 2:17 PM EST [facility] Blood Venous blood specimen / Unknown Venipuncture / Unknown 07/08/2024 1:18 PM EST 07/08/2024 1:34 PM EST Narrative [facility] - 07/08/2024 2:17 PM EST High levels of biotin in samples may falsely decrease hsTroponin values. ??Use caution when interpreting hsTroponin results in patients taking biotin who exhibit renal impairment (eGFR <60) or in patients taking more than 20 mg/day of biotin. Jj Wolfe MD LAB BLOOD ORDERABLES [place] Result [facility] [address] [place] [address], [place] [phone] * (ABNORMAL) Urinalysis with reflex microscopic and culture (07/08/2024 12:59 PM EST) [facility] Specific [place] Urine 1.020 1.003 - 1.030 LAB URINALYSIS - AUTOMATED METHOD 07/08/2024 1:21 PM EST [facility] pH, Urine 5.5 5.0 - 8.0 pH LAB URINALYSIS - AUTOMATED METHOD 07/08/2024 1:21 PM EST [facility] Leukocytes, Urine Negative Negative LAB URINALYSIS - AUTOMATED METHOD 07/08/2024 1:21 PM [facility] Nitrite, Urine Negative Negative LAB URINALYSIS - AUTOMATED METHOD 07/08/2024 1:21 PM [facility] Protein, Urine 100(A) <=Trace mg/dL LAB URINALYSIS - AUTOMATED METHOD 07/08/2024 1:21 PM [facility] Glucose, Urine 500(A) Negative mg/dL LAB URINALYSIS - AUTOMATED METHOD 07/08/2024 1:21 PM [facility] Ketones, Urine Negative Negative mg/dL LAB URINALYSIS - AUTOMATED METHOD 07/08/2024 1:21 PM [facility] Urobilinogen, Urine 0.2 0.2 - 1.0 mg/dL LAB URINALYSIS - AUTOMATED METHOD 07/08/2024 1:21 PM [facility] Bilirubin, Urine Negative Negative LAB URINALYSIS - AUTOMATED METHOD 07/08/2024 1:21 PM [facility] Blood, Urine Large(A) Negative LAB URINALYSIS - AUTOMATED METHOD 07/08/2024 1:21 PM [facility] RBC, Urine 21.6(H) 0 - 4 /HPF LAB URINALYSIS - AUTOMATED METHOD 07/08/2024 1:21 PM [facility] WBC, Urine 7.3(H) 0 - 4 /HPF LAB URINALYSIS - AUTOMATED METHOD 07/08/2024 1:21 PM [facility] Squamous Epithelial, Urine 30 0 - 60 /LPF LAB URINALYSIS - AUTOMATED METHOD 07/08/2024 1:21 PM [facility] Bacteria, Urine Negative Negative /HPF LAB URINALYSIS - AUTOMATED METHOD 07/08/2024 1:21 PM [facility] Hyaline Casts, Urine 1.7 0 - 3 /LPF LAB URINALYSIS - AUTOMATED METHOD 07/08/2024 1:21 PM [facility] Urine Urine specimen obtained by clean catch procedure / Unknown Non-blood Collection / Unknown 07/08/2024 12:59 PM EST 07/08/2024 1:11 PM EST us Jj Wolfe MD LAB URINE ORDERABLES [place] Result Performing Organization Address [facility]/ZIP Co de Phone Number [facility] [address] [place] [address], [place] [phone] * Culture urine (07/08/2024 12:59 PM EST) Culture, Urine No growth 07/09/2024 10:44 AM EST [facility] Urine Urine specimen obtained by clean catch procedure / Unknown Non-blood Collection / Unknown 07/08/2024 12:59 PM EST 07/08/2024 1:21 PM EST Jj Wolfe MD LAB MICROBIOLOGY - GENERA L ORDERABLES Final Result Performing Organization Address [facility] de Phone Number [facility] [address] [place] [address], [place] [phone] * CT Cervical Spine wo Contrast (07/08/2024 [...] Signed Date: 07/08/2024 12:27 ET Workstation ID: [id number] Transcribed By: Self Edit Transcribed Date: 07/08/2024 [...] Signed Date: 07/08/2024 12:27 ET Workstation ID: [id number] Transcribed By: Self Edit Transcribed Date: 07/08/2024 12:24 ET us Raya BECERRA CT PROCEDURES [place] dominguez Result * CT Head wo Contrast (07/08/2024 [...] Signed Date: 07/08/2024 12:23 ET Workstation ID: [id number] Transcribed By: Self Edit Transcribed Date: 07/08/2024 [...] Signed Date: 07/08/2024 12:23 ET Workstation ID: [id number] Transcribed By: Self Edit Transcribed Date: 07/08/2024 12:22 ET Raya HEDRICK IMG CT PROCEDURES [place] Result * (ABNORMAL) Iron and TIBC (07/08/2024 11:10 AM EST) Only the most recent of2 resultswithin the time period is included. Iron 20(L) 40 - 150 mcg/dL LAB CHEMISTRY METHOD 07/08/2024 3:44 PM EST [facility] Comment:Hemolysis present TIBC 186(L) 250 - 450 mcg/dL LAB CHEMISTRY METHOD 07/08/2024 3:44 PM EST [facility] Iron Saturation 11(L) 15 - 50 % LAB CHEMISTRY METHOD 07/08/2024 3:44 PM [facility] Blood Venous blood specimen / Unknown Venipuncture / Unknown 07/08/2024 11:10 AM EST 07/08/2024 11:42 AM EST us Wayne Donahue MD LAB BLOOD ORDERABLES Final Re sult [facility] [facility] [address] [place] [address], * (ABNORMAL) Reticulocyte count (07/08/2024 11:10 AM EST) Retic Ct Abs 0.050 0.030 - 0.090 M/mcL LAB HEMETOLOGY METHOD 07/08/2024 2:52 PM EST [facility] Retic Ct Pct 1.4 0.7 - 1.7 % LAB HEMETOLOGY METHOD 07/08/2024 2:52 PM [facility] Immature Retic Fract 24.5(H) 2.3 - 15.9 % LAB HEMETOLOGY METHOD 07/08/2024 2:52 PM [facility] Reticulocyte Hemoglobin 22.5(L) >29.0 pcg LAB HEMETOLOGY METHOD 07/08/2024 2:52 PM EST [facility] Blood Venous blood specimen / Unknown Venipuncture / Unknown 07/08/2024 11:10 AM EST 07/08/2024 11:42 AM EST us Wayne Donahue MD LAB BLOOD ORDERABLES Final Re sult Performing Organization Address [facility]/ZIP Co de Phone Number [facility] [address] [place] [address], [place] [phone] * (ABNORMAL) Thyroid stimulating hormone (07/08/2024 11:10 AM EST) TSH 4.50(H) 0.40 - 4.00 mcIU/mL LAB CHEMISTRY METHOD 07/08/2024 3:31 PM EST [facility] Blood Venous blood specimen / Unknown Venipuncture / Unknown 07/08/2024 11:10 AM EST 07/08/2024 11:42 AM EST us Wayne Donahue MD LAB BLOOD ORDERABLES Final Re sult Performing Organization Address [facility] de Phone Number [facility] [address] [place] [address], [place] [phone] * (ABNORMAL) Osmolality (07/08/2024 11:10 AM EST) Osmolality Iván 307(H) 280 - 300 mOsm/kg LAB CHEMISTRY METHOD 07/08/2024 6:51 PM EST [facility] Blood Venous blood specimen / Unknown Venipuncture / Unknown 07/08/2024 11:10 AM EST 07/08/2024 11:42 AM EST us Wayne Donahue MD LAB BLOOD ORDERABLES Final Re sult Performing Organization Address [facility]/ZIP Co de Phone Number [facility] [address] [place] [address], [place] [phone] * B-type natriuretic peptide (07/08/2024 11:10 AM EST) BNP 86 <=100 pcg/mL LAB CHEMISTRY METHOD 07/08/2024 12:26 PM EST [facility] Blood Venous blood specimen / Unknown Venipuncture / Unknown 07/08/2024 11:10 AM EST 07/08/2024 11:42 AM EST Jj Wolfe MD LAB BLOOD ORDERABLES America l Result [facility] [address] [place] [address], * (ABNORMAL) Haptoglobin (07/08/2024 11:10 AM EST) Haptoglobin 570(H) 16 - 200 mg/dL LAB CHEMISTRY METHOD 07/08/2024 3:44 PM EST [facility] Blood Venous blood specimen / Unknown Venipuncture / Unknown 07/08/2024 11:10 AM EST 07/08/2024 11:42 AM EST Wayne Donahue MD LAB BLOOD ORDERABLES Final Re sult [facility] [address] [place] [address], [place] [phone] * (ABNORMAL) Folate (07/08/2024 11:10 AM EST) Folate >20.0(H) 2.8 - 17.0 ng/ml LAB CHEMISTRY METHOD 07/08/2024 3:51 PM EST [facility] Blood Venous blood specimen / Unknown Venipuncture / Unknown 07/08/2024 11:10 AM EST 07/08/2024 11:42 AM EST us Wayne Donahue MD LAB BLOOD ORDERABLES Final Re sult Performing Organization Address [facility]/ZIP Co de Phone Number [facility] [address] [place] [address], [place] [phone] * (ABNORMAL) Ferritin (07/08/2024 11:10 AM EST) Only the most recent of2 resultswithin the time period is included. Pathologist [facility] Ferritin 708(H) 8 - 252 ng/mL LAB CHEMISTRY METHOD 07/08/2024 3:51 PM EST [facility] Blood Venous blood specimen / Unknown Venipuncture / Unknown 07/08/2024 11:10 AM EST 07/08/2024 11:42 AM EST us Wayne Donahue MD LAB BLOOD ORDERABLES Final Re sult Performing Organization Address [facility] de Phone Number [facility] [address] [place] [address], [place] [phone] * Vitamin B12 (07/08/2024 11:10 AM EST) [facility] Vitamin B-12 384 250 - 900 pcg/mL LAB CHEMISTRY METHOD 07/08/2024 3:51 PM EST [facility] Blood Venous blood specimen / Unknown Venipuncture / Unknown 07/08/2024 11:10 AM EST 07/08/2024 11:42 AM EST us Wayne Donahue MD LAB BLOOD ORDERABLES Final Re sult Performing Organization Address [facility]/ZIP Co de Phone Number [facility] [address] [place] [address], [place] [phone] * (ABNORMAL) Creatine kinase and CKMB (07/08/2024 11:10 AM EST) [facility] Total CK 649(H) 22 - 269 unit/L LAB CHEMISTRY METHOD 07/08/2024 3:51 PM EST [facility] Comment:Hemolysis present CK-MB 13.1(H) 1.0 - 3.6 ng/mL LAB CHEMISTRY METHOD 07/08/2024 3:51 PM EST [facility] CK-MB Index 0.0 0.0 - 5.0 LAB CHEMISTRY METHOD 07/08/2024 3:51 PM EST [facility] Blood Venous blood specimen / Unknown Venipuncture / Unknown 07/08/2024 11:10 AM EST 07/08/2024 11:42 AM EST us Wayne Donahue MD LAB BLOOD ORDERABLES Final Re sult Performing Organization Address [facility] Co de Phone Number [facility] [address] [place] [address], [place] [phone] * Cortisol (07/08/2024 11:10 AM EST) Cortisol 58.1 mcg/dL LAB CHEMISTRY METHOD 07/08/2024 3:38 PM EST [facility] Blood Venous blood specimen / Unknown Venipuncture / Unknown 07/08/2024 11:10 AM EST 07/08/2024 11:42 AM EST Narrative [facility] - 07/08/2024 3:38 PM EST CORTISOL REFERENCE RANGE ?? 8 AM SPEC: ??5.0-23.0 mcg/dL ?? 4 PM SPEC: ??3.0-16.0 mcg/dL ?? 8 PM SPEC: ??<5.0 mcg/dL us Wayne Donahue MD LAB BLOOD ORDERABLES Final Re sult [facility] [address] [place] [address], [place] [phone] * (ABNORMAL) Comprehensive metabolic panel (07/08/2024 11:10 AM EST) Sodium 126(L) 133 - 145 mmol/L LAB CHEMISTRY METHOD 07/08/2024 12:54 PM [facility] Potassium 4.2 3.5 - 5.5 mmol/L LAB CHEMISTRY METHOD 07/08/2024 12:54 PM [facility] Comment:Hemolysis present Chloride 93(L) 96 - 110 mmol/L LAB CHEMISTRY METHOD 07/08/2024 12:54 PM [facility] CO2 21 21 - 32 mmol/L LAB CHEMISTRY METHOD 07/08/2024 12:54 PM [facility] Anion Gap 12(H) 3 - 11 LAB CHEMISTRY METHOD 07/08/2024 12:54 PM [facility] Glucose 265(H) 70 - 100 mg/dL LAB CHEMISTRY METHOD 07/08/2024 12:54 PM [facility] BUN 59(H) 5 - 25 mg/dL LAB CHEMISTRY METHOD 07/08/2024 12:54 PM [facility] Comment:Results verified by repeat testing Creatinine 4.10(H) 0.50 - 1.10 mg/dL LAB CHEMISTRY METHOD 07/08/2024 12:54 PM [facility] Comment:Results verified by repeat testing eGFR 10(L) >=60 mL/min/1. 73m2 LAB CHEMISTRY METHOD 07/08/2024 12:54 PM [facility] Comment:Calculation based on the??Chronic Kidney Disease Epidemiology Collaboration (CKD-EPI) equation refit??without adjustment for race. BUN/Creatinine Ratio 14.4 LAB CHEMISTRY METHOD 07/08/2024 12:54 PM [facility] Calcium 10.6(H) 8.5 - 10.5 mg/dL LAB CHEMISTRY METHOD 07/08/2024 12:54 PM [facility] AST (SGOT) 57(H) 10 - 42 unit/L LAB CHEMISTRY METHOD 07/08/2024 12:54 PM [facility] Comment:Hemolysis present ALT (SGPT) 39 10 - 60 unit/L LAB CHEMISTRY METHOD 07/08/2024 12:54 PM EST [facility] Alkaline Phosphatase 149(H) 42 - 121 unit/L LAB CHEMISTRY METHOD 07/08/2024 12:54 PM EST [facility] Total Protein 6.3 6.0 - 8.0 g/dL LAB CHEMISTRY METHOD 07/08/2024 12:54 PM EST [facility] Albumin 2.1(L) 3.2 - 5.0 g/dL LAB CHEMISTRY METHOD 07/08/2024 12:54 PM [facility] Total Bilirubin 0.4 0.0 - 1.4 mg/dL LAB CHEMISTRY METHOD 07/08/2024 12:54 PM [facility] Blood Venous blood specimen / Unknown Venipuncture / Unknown 07/08/2024 11:10 AM EST 07/08/2024 11:42 AM EST Jj Wolfe MD LAB BLOOD ORDERABLES America l Result [facility] [address] [place] [address], * ECG 12 lead (07/08/2024 10:46 AM EST) Only the most recent of2 resultswithin the time period is included. Ventricular Rate ECG 94 BPM GEMUSE Atrial Rate 94 BPM GEMUSE P-R Interval 196 ms GEMUSE QRS Duration 118 ms GEMUSE Q-T Interval 354 ms GEMUSE QTc 442 ms GEMUSE P Wave [place] 79 degrees GEMUSE R [place] 15 degrees GEMUSE T [place] 4 degrees GEMUSE ECG Interpretation Sinus rhythm [...] us Aye HEDRICK ECG ORDERABLES Final Result HALLEY * ECG-Outside (07/08/2024) us Provider Onbase MD ECG ORDERABLES Final Result * ECG-Annotated (07/08/2024) us Provider Onbase MD ECG ORDERABLES Final Result * Lipid panel with reflex to direct LDL (05/31/2024 9:22 AM EST) [facility] Signature Cholesterol 131 0 - 200 mg/dL LAB CHEMISTRY METHOD 05/31/2024 12:51 PM [facility] Triglycerides 113 0 - 150 mg/dL LAB CHEMISTRY METHOD 05/31/2024 12:51 PM [facility] HDL 60 >=40 mg/dL LAB CHEMISTRY METHOD 05/31/2024 12:51 PM [facility] LDL Calculated 48 0 - 100 mg/dL LAB CHEMISTRY METHOD 05/31/2024 12:51 PM [facility] VLDL Cholesterol Hunter 22.6 mg/dL LAB CHEMISTRY METHOD 05/31/2024 12:51 PM [facility] Non HDL Chol. (LDL+VLDL) 71 <145 mg/dL LAB CHEMISTRY METHOD 05/31/2024 12:51 PM [facility] Chol/HDL Ratio 2.2 0.0 - 4.4 LAB CHEMISTRY METHOD 05/31/2024 12:51 PM [facility] Blood Venous blood specimen / Unknown Venipuncture / Unknown 05/31/2024 9:22 AM EST 05/31/2024 9:22 AM EST us Kayleigh Pedraza NP LAB BLOOD ORDERABLES Final Resul t [facility] [address] [place] [address], [place] [phone] * (ABNORMAL) Hemoglobin A1c (05/31/2024 9:22 AM EST) Hemoglobin A1C 7.2(H) <6.5 % LAB CHEMISTRY METHOD 05/31/2024 12:36 PM EST [facility] Mean Bld Glu Estim. 160 mg/dL LAB CHEMISTRY METHOD 05/31/2024 12:36 PM EST [facility] Blood Venous blood specimen / Unknown Venipuncture / Unknown 05/31/2024 9:22 AM EST 05/31/2024 9:22 AM EST us Kathy HEDRICK LAB BLOOD ORDERABLES Final Resul t [facility] [address] [place] [address], [place] [phone] * IR Bx Lung/Mediastinum Perc Ndl Core [...] Signed Date: 05/23/2024 16:55 ET Workstation ID: [id number] Transcribed By: Self Edit Transcribed Date: 05/23/2024 16:49 ET Narrative 05/23/2024 4:55 PM EST INDICATION: Pulmonary nodules. Right upper lobe nodule demonstrates significant PET activity. PROCEDURE: Written informed consent obtained for CT-guided lung biopsy with chest tube placement if needed. prior relevant studies: PET/CT dated May 03, 2024 Scanner: GE bright speed 16 slice VCT Dose reduction technique: [...] studies: PET/CT dated May 03, 2024 Scanner: Voltaix speed 16 slice VCT Dose reduction technique: [...] Signed Date: 05/23/2024 16:55 ET Workstation ID: [id number] Transcribed By: Self Edit Transcribed Date: 05/23/2024 16:49 ET us Jaime Grimaldo MD IMG IR PROCEDURES Final Resu lt * SALLY DEXA AXIAL SKELETON (04/15/2018 10:29 AM EDT) Anatomical Region Laterality Modality Mammography 04/15/2018 9:39 AM EDT Narrative 04/15/2018 10:29 AM EDT [facility] Diagnostic Imaging Department [address] [place] [address] Patient: ??CONTRERAS,ANA A ?/Age/Sex: 1945 - 73 - F Unit#: ??[id number] ? Location/Status: ??SPDIMAM/REG CLI ? Mnemonic/Ordering Site: ??MAMDEXAAX/SPMAM Ordering Physician: ??JOSE SANTIZO MD Sally Dexa Axial Skeleton - 04/15/18 1004 HISTORY: ??The patient is a 73-year-old [...] probability of hip fracture of 2.2%. Code 06952 Dictating Physician: ??JAILYN BARAHONA MD Electronically Signed by: ??JAILYN BARAHONA MD Dic Date/Time: ??04/15/18 1028 Sign date/Time: ??04/15/18 1029 Procedure Note Jailyn Barahona MD - 06/17/2022 [facility] Diagnostic Imaging Department [address] [place] [address] Patient: CONTRERASANA./Age/Sex: 1945 - 73 - F Unit#: [id number] [facility] Mnemonic/Ordering Site: [facility] Ordering Physician: JOSE SANTIZO MD [facility] Dexa Axial Skeleton - 04/15/18 - 1004 [...] density of the femurs bilaterally is 0.854 gm/pl3etlwl is 85% of that of young normals [...] probability of hip fracture of 2.2%. 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 Health Care Proxy * Full [...] Second Alternate Health Care Agent Care Teams Supervisor Lathing Relationship Specialty Start Date End Date Eloisa Vázquez DO [address] [place] [address] PCP - General 04/12/24
[2024-08-16 06:55] LABS: Hemoglobin 7.2 g/dl (12.0-16.0); Imm Gran Abs Auto 0.03 X10*3/uL (0.00-0.03); Imm Gran Pct Auto 1.1 % (0.0-0.4); Lymphocytes Absolute Auto 0.6 X10*3/uL (1.2-4.9); Lymphocytes Percent Auto 22.6 % (20-40); Mean Corpuscular HGB Conc 31.3 g/dl (31.0-35.0); Mean Corpuscular Hemoglobin 27.1 pg (27.0-33.0); Mean Corpuscular Volume 86.5 fL (80.0-98.0); Mean Platelet Volume 10.1 fL (9.4-12.3); Monocytes Absolute Auto 0.2 X10*3/uL (0.1-1.2); Monocytes Percent Auto 6.9 % (2-11); Neutrophils Absolute Auto 1.9 x10*3/uL (2.0-8.3); Neutrophils Percent Auto 69.4 % (45-73); Platelet Count 106 X10*3/uL (160-400); Red Blood Count 2.66 X10*6/uL (4.20-5.50); Red Cell Distribution Width 21.5 % (11.0-16.0); White Blood Count 2.7 X10*3/uL (4.8-10.8)
[2024-08-16 06:59] LABS: Anion Gap 15 (12-20); Blood Urea Nitrogen 38 mg/dL (9-16); Carbon Dioxide 24 mmol/L (22-29); Chloride 102 mmol/L (96-108); Estimated Glomerular Filt Rate 13; Glucose Random 215 mg/dL (60-115); Potassium 3.9 mmol/L (3.3-5.1); Sodium 137 mmol/L (135-145)
== END 2024-08-16 06:25 | disposition home or self-care (01) ==
LOC: HO.MMNH1L 06:24
PROVIDERS: Visit Provider Family Medicine
DX: E11.9 Type 2 diabetes mellitus without complications (principal)
CPT/HCPCS: 36415; 80048; 85025

== ENCOUNTER 2024-08-22 07:39 | Outpatient (REF) | payer MEDICARE, SELFPAY ==
[2024-08-22 06:10] LABS: MANUAL DIFF FLAG NO
[2024-08-22 06:45] LABS: Hematocrit 25.7 % (37.0-47.0); Hemoglobin 7.8 g/dl (12.0-16.0); Imm Gran Abs Auto 0.03 X10*3/uL (0.00-0.03); Imm Gran Pct Auto 0.8 % (0.0-0.4); Lymphocytes Percent Auto 25.6 % (20-40); Mean Corpuscular HGB Conc 30.4 g/dl (31.0-35.0); Mean Corpuscular Hemoglobin 27.9 pg (27.0-33.0); Mean Corpuscular Volume 91.8 fL (80.0-98.0); Mean Platelet Volume 10.8 fL (9.4-12.3); Monocytes Absolute Auto 0.3 X10*3/uL (0.1-1.2); Neutrophils Absolute Auto 2.6 x10*3/uL (2.0-8.3); Neutrophils Percent Auto 66.6 % (45-73); Platelet Count 91 X10*3/uL (160-400); Red Cell Distribution Width 21.2 % (11.0-16.0); White Blood Count 3.9 X10*3/uL (4.8-10.8)
[2024-08-22 07:31] LABS: Anion Gap 14 (12-20); Blood Urea Nitrogen 53 mg/dL (9-16); Calcium 7.9 mg/dL (8.4-10.2); Carbon Dioxide 23 mmol/L (22-29); Chloride 105 mmol/L (96-108); Glucose Random 107 mg/dL (60-115); Potassium 3.4 mmol/L (3.3-5.1); Sodium 139 mmol/L (135-145)
[2024-08-22 07:49] LABS: Estimated Glomerular Filt Rate 10
--- OUTSIDE RECORDS SUMMARY | 2024-08-22 07:51 | XMS_ITS | Encounter Summary ---
Author Organization [facility] Address [address] [address] Phone Care Team Providers Care Commercial Or Institutional Cleaner Name Role Phone Eloisa Vázquez Primary Care Provider [phone] Encounter Details Date Type Department Care Team (Late st Contact Info) Description 08/17/2024 Treatment [facility]. [address] [address] Boni Pierce MD [address] [address] Social History Tobacco Use Types Packs/Day Years Used Date Smoking Tobacco: Never Assessed Comments Unknown Sex and Gender Information Value Date Recorded Sex Assigned at Not on file Legal Sex Female 10:11 AM EST Gender Identity Not on file Sexual Orientation Not on file documented as of this encounter Miscellaneous Notes * Dialysis Note - Boni Pierce MD - 08/17/2024 12:00 AM EST Patient: Ana Contreras : 1945 Note Type: Dialysis Rounds-CLAUDIA Telehealth Service Date: 08/17/2024 Telehealth encounter using audiovisual technology, performed according to state requirements. Appropriate patient consent obtained. This patient was personally seen during dialysis for the management of acute kidney injury requiring renal replacement therapy. Attending Sales Special Agent: BONI PIERCE MD Dialysis Location: [facility] Schedule: Shift: 1 ADEQUACY ASSESSMENT Kt/V, Natural Log 1.63 (08/08/24) UREA REDUCTION RATIO (%) 77 (08/08/24) BUN 43 (08/17/24) 50 (08/10/24) 61 (08/08/24) BUN Post Dialysis 14 (08/08/24) Creatinine 4.15 (08/17/24) 4.15 (08/17/24) 3.73 (08/10/24) Bicarbonate (CO2) 28 (08/17/24) 25 (08/10/24) 24 (08/08/24) Sodium 140 (08/17/24) 134 (08/10/24) 136 (08/08/24) Urine Volume 300 (08/17/24) Creatinine renal clearance 1.3 (08/17/24) ANEMIA ASSESSMENT Hgb 8.0 (08/17/24) 8.2 (08/08/24) Iron Saturation (TSat) 19 (08/08/24) Ferritin 1,209 (08/08/24) Iron 34 (08/08/24) TIBC 176 (08/08/24) MCV 87.0 (08/08/24) Platelets 181 (08/08/24) BMM ASSESSMENT Calcium 8.6 08/17/24 8.7 08/10/24 8.8 08/08/24 Calcium, Adjusted Total 9.4 08/08/24 Phosphorus, Serum 4.4 08/08/24 Ca*PO4 38.7 08/08/24 PTH, Intact 144 2/10/25 Vitamin D, 25-Hydroxy 38 08/08/24 Magnesium 1.9 08/08/24 Alkaline Phosphatase 76 08/08/24 Aluminum 4 08/08/24 NUTRITION ASSESSMENT Albumin 3.2 08/08/24 Potassium 3.9 08/17/24 4.6 08/10/24 4.7 08/08/24 Hemoglobin A1C 6.3 08/08/24 ADDITIONAL LABS White Blood Cells 8.5 (08/08/24) Cholesterol 170 (08/08/24) HDL 60 (08/08/24) LDL-Calc 80 (08/08/24) Triglycerides 149 (08/08/24) Hep B Surface Antibody <4 (08/08/24) Uric Acid 5.0 (08/08/24) ADDITIONAL COMMENT COMMENTS: 08/08/24 Getting rec from [facility] 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
--- OUTSIDE RECORDS SUMMARY | 2024-08-22 07:51 | XMS_ITS | Clinical Summary ---
Author Organization [facility] Address [address] [place] [address] Care Team Providers Care Modern And Contemporary Art Curator Name Role Phone GurpreetEloisa Primary Care Provider [phone] Allergies No known active allergies Medications Medication [...] age to complete this topic Care Teams Modern And Contemporary Art Curator Relationship Specialty Start Date End Date Eloisa Vázquez DO [address] [place] [address] PCP - General Internal Medicine 04/07/24
--- OUTSIDE RECORDS SUMMARY | 2024-08-22 07:53 | XMS_ITS | Encounter Summary ---
Author Organization [facility] Address [address] [place] [address] Care Team Providers Care Capability Lead Name Role Phone Marie Vázquezmankamryn CHERY Primary Care Provider [phone] Reason for Visit * Reason Onset Date Comments Pre-op Visit 07/05/2024 Encounter Details Date Type Department Care Team (Late st Contact Info) Description 07/05/2024 Telephone [facility] [address] [facility] [address] [place] [address] Primo Navarro MD [address] [facility] [address] [place], [place] [id number] Pre-op Visit Social History Tobacco Use Types [...] Had some coronary calcifications on CT at [place] though without anginal symptoms don't feel strongly about need to start aspirin at this time as I doubt it would significantly alter her erin-op RI/CA risk. Currently Ríos Risk is ~1-2% but [...] Care Team (Late st Contact Info) Description 08/22/2024 8:30 AM EST Appointment [facility] [address] [place] [phone] 08/23/2024 3:00 PM EST Office Visit Gastroenterology - [address] [place] [phone] Josiane Smith, FLIGHT SIMULATOR TEACHER [address] [place] [address] 09/05/2024 10:00 AM EDT Office Visit Endocrinology - [place] [address] [place] [address] Kathy Michelle PA [address] [place] [address] 09/06/2024 11:00 AM EDT Ancillary Procedure [facility] - [address] [place] [address] 10/06/2024 1:15 PM EDT Office Visit Internal Medicine - [facility] [address] [place] [address] Eloisa Vázquez DO [address] [place] [address] 11/14/2024 11:30 AM EDT Appointment [facility] CT Scan [address] [place] [address] 12/01/2024 10:00 AM EDT Office Visit Thoracic Surgery - [place] [address] [address] Cecily Montez MD 299 [facility] [address] [place] [address] documented as of this encounter Visit Diagnoses Not on filedocumented in this encounter Additional Health Concerns Infection Onset Date Last Indicated Resolved Time Respiratory Rule-Out 07/08/2024 07/08/2024 025 4:18 PM EST COVID-19 Rule-Out 07/08/2024 07/08/2024 07/08/2024 4:18 PM EST documented as of this encounter Care Teams Capability Lead Relationship Specialty Start Date End Date Eloisa Vázquez DO [address] [place] [address] PCP - General 04/12/24 documented as of this encounter
--- OUTSIDE RECORDS SUMMARY | 2024-08-22 07:53 | XMS_ITS | Encounter Summary ---
Author Organization [facility] Address [address] [address] Phone Care Team Providers Care Disc Ruler Operator Name Role Phone BrigidoeverardoMarieEloisa Primary Care Provider [phone] Reason for Referral * Outpatient Services (Routine) - Closed Specialty Diagnoses / Procedures Referred By Conthector t Referred To Contact Diagnoses ANCA associated vasculitis (HCC) 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) Procedures Rituxan Infusion Orders Anthony Norton MD [address] [address] Phone: tel: fax: Referral ID Status Reason Start Date Expiration Date Visits Re quested Visits Authorized [id number] Closed 08/08/2024 08/08/2025 1 1 Encounter Details Date Type Department Care Team (Latest Contact Info) Description 08/08/2024 Office Communication [facility] [address] [address] Anthony Norton MD [address] [address] ANCA associated vasculitis (HCC) (Primary [...] Need to schedule IV rituxin--she is at [facility] She needs infusion for 08/12/24--I will put orde in our EPIC but u will need to cntact [facility] tocoordinate documented in this encounter Plan of Treatment Not on file documented as of this encounter Visit Diagnoses Diagnosis ANCA associated vasculitis (HCC)- Primary 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) 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 documented in this encounter Care Teams Disc Ruler Operator Relationship Specialty Start Date End Date Eloisa Vázquez [address] [place] [address] PCP - General Internal Medicine 07/11/24 documented as of this encounter
--- OUTSIDE RECORDS SUMMARY | 2024-08-22 07:53 | XMS_ITS | Encounter Summary ---
Author Organization [facility] Address [address] [place] [address] Care Team Providers Care Office Machine Repair Shop Supervisor Name Role Phone Eloisa Vázquez DO Primary Care Provider [phone] Reason for Visit * Reason Comments Fall * Auth/Cert Specialty Diagnoses / Procedures Referred By Contac t Referred To Contact Diagnoses Acute encephalopathy Procedures . Wayne Donahue MD [address] [place] [id number] Phone: tel: fax: [facility] Emergency [address] [place] [address] Phone: tel: Referral ID Status Reason Start Date Expiration Date Visits Re quested Visits Authorized [id number] 1 1 Encounter Details Date Type Department Care Team (Late st Contact Info) Description 08/05/2024 11:30 AM EST - 08/05/2024 1:30 PM EST Surgery [facility] Main OR [address] [place] [address] Cecily Montez MD [address] [place] [id number] Navigation bronchoscopy/EBUS [62479 (CPT??) +2 more] Surgery Details Date/Time Status Location OR Service Patient Class Case Class Case Type Trauma Case? 08/05/2024 11:30 AM Posted [facility] OR OR 15 Thoracic Surgery Inpatient F [...] from the original note were not included. PLACENTIA DISCHARGE SUMMARY Patient Information Ana Contreras : [...] was found down on the ground by [facility]. She was unsure the detailsof how [...] will be transferred to the care of [place] staff for further management of their acute encephalopathy, fall. Hospital course Patient is 79 years old female with past medical history significant for type 2 diabetes, hypertension, chronic kidney disease stage IV, iron deficiency anemia, dyslipidemia, lung nodule brought to the [facility] after wellness check was called to police by her daughter. Patient was foundon the ground unable to get up and was confused. Patient admitted to medical floors for further management of chronic kidney disease, metabolic encephalopathy. # Acute on chronic kidney injury, crescentic glomerulonephritis requiring hemodialysis. -Patient is on hemodialysis Thursday. On prednisone, Bactrim every Thursday. Per net software architect patient's kidney biopsy consistent with crescentic glomerulonephritis. Rituximab given on 07/28/2024. Next dose in 2 weeks. Patient is being followed by net software architect for hemodia lysis. Upon DC continue oral [...] Follow-Up Instructions and Recommendations Eloisa Vázquez DO [address] [place] [address] Schedule an appointment as soon as possible for a visit in 3 day(s) for transition of care visit, If symptoms worsen, As needed Chencho [facility] MD [address] [place] [address] [facility] [address] Schedule an appointment as soon as possible for a visit in 1 week(s) for kidney failure management [address] [address] Discharge Procedure Orders Discharge Diet: [...] from the original note were not included. PLACENTIA DISCHARGE SUMMARY Patient Information Ana Contreras : [...] was found down on the ground by [facility]. She was unsure the detailsof how [...] in May. Her creatinine was 1.6-2 and herhemoglobin was 7.4-8.2 and her white count was [...] will be transferred to the care of [place] staff for further management of their acute encephalopathy, fall. Hospital course Patient is 79 years old female with past medical history significant for type 2 diabetes, hypertension, chronic kidney disease stage IV, iron deficiency anemia, dyslipidemia, lung nodule brought to the [facility] after wellness check was called to police by her daughter. Patient was foundon the ground unable to get up and was confused. Patient admitted to medical floors for further management of chronic kidney disease, metabolic encephalopathy. # Acute on chronic kidney injury, crescentic glomerulonephritis requiring hemodialysis. -Patient is on hemodialysis Thursday. On prednisone, Bactrim every Thursday. Per net software architect patient's kidney biopsy consistent with crescentic glomerulonephritis. Rituximab given on 07/28/2024. Next dose in 2 weeks. Patient is being followed by net software architect for hemodia lysis. Upon DC continue oral [...] and Recommendations Eloisa Vázquez DO [address] [facility] [address] Schedule an appointment as soon as possible for a visit in 3 day(s) for transition of care visit, If symptoms worsen, As needed Chencho [facility] MD [address] [place] [address] [facility] [phone] Schedule an appointment as soon as possible for a visit in 1 week(s) for kidney failure management [address] [address] Discharge Procedure Orders Discharge Diet: [...] through Care Everywhere. * Diabetes: Renal Diet (Monegasque) documented in this encounter Medications at Time [...] Do not crush, chew, or split. 08/06/2024 polyethylene glycol (MIRALAX) 17 gram packet Take 17 g by mouth 1 (one) time each day if needed for constipation. 08/05/2024 5 predniSONE (DELTASONE) 20 mg tablet Take 3 tablets (60 mg total) by mouth 1 (one) time each day. 08/06/2024 5 sulfamethoxazole -trimethoprim (BACTRIM DS,SEPTRA DS) 800-160 mg [...] total) by mouth every morning with breakfast simvastatin (ZOCOR) 20 mg tablet Take 1 tablet (20 mg total) by mouth every night at bedtime CALCIUM CARBONATE ORAL Calcium 600mg Take 1 [...] Report given to ems, to transport to [facility]. * Chencho aWyne MD - 08/06/2024 11:15 AM EST Entered [...] Transition Plan Initial Transition Plan Jail Facility ([facility]) Transportation Transportation at discharge [facility] providing transportation Ruth What day is the transport expected? 08/06/24 [...] was found down on the ground by [facility]. She was unsure the detailsof how [...] Patient will be transferred tothe care of [place] staff for further management of their acute encephalopathy, fall. Hospital course Patient is 79 years old female with past medical history significant for type 2 diabetes, hypertension, chronic kidney disease stage IV, iron deficiency anemia, dyslipidemia, lung nodule brought to the [facility] after wellness check was called to police by her daughter. Patient was foundon the ground unable to get up and was confused. Patient admitted to medical floors for further management of chronic kidney disease, metabolic encephalopathy. # Acute on chronic kidney injury, crescentic glomerulonephritis requiring hemodialysis. -Patient is on hemodialysis Thursday. On prednisone, Bactrim every Thursday. Per net software architect patient's kidney biopsy consistent with crescentic glomerulonephritis. Rituximab given on 07/28/2024. Next dose in 2 weeks. Patient is being followed by net software architect for hemodia lysis. Upon DC continue oral [...] Transition Plan Initial Transition Plan Jail Facility ([facility]) Transportation Transportation at discharge [facility] providing transportation Ruth What day is the transport expected? 08/05/24 [...] of Shift Summary: PLAN TO D/C TO [facility] TODAY * Louis Welch RN - 08/05/2024 [...] Ordered 08/05/24 0001 Adult NPO diet Location: [facility]; Diet: NPO- Except for Medications Diet effective midnight Question Answer Comment Location [facility] Diet NPO- Except for Medications 08/04/24 0838 07/11/24 1133 Dietary nutrition supplements Two times daily (BID); [facility]; Diabetic Supplement Continuous Question Answer Comment Frequency Two times daily (BID) Location [facility] Supplements Diabetic Supplement 07/11/24 1132 History of [...] or fat depletion Skin: Skin intact per fire safety manager Nutrition Diagnosis: Code Type: None Identified Status: [...] weeks and will be tapered by the net software architect Continue PPI in the outpatient setting if patient is on prednisone Continue Bactrim DS in the outpatient setting thrice weekly () as patient is immunosuppressed Lung mass biopsy with Dr. Montez today s/p transfusion yesterday Outpatient HD arranged at [facility] 1st shift [phone] on hold since July 21. I have given orders for the patient to start on Thursday Patient for discharge to [facility] Discussed with medical team. Patient to get transfused today From renal standpoint patient can be discharged today or on Thursday The outpatient facility needs to arrange for rituximab infusion on August 11 or at [facility] outpatient infusion-they can touch base with the renal MD covering for [place] for that shift for orders and dosage Discussed with the medical team/outpatient dialysis nursing staff and case making machine operator history Chencho [facility] MD * Prisca Goldman [...] a 79 y.o. female : 1945 MR#: [id number] SUBJECTIVE Subjective Patient seen by the bedside [...] of fentanyl administered during the procedure. Scanner: NaviExpert [address] Dose reduction technique: AEC [...] Signed Date: 07/22/2024 17:00 ET Workstation ID: [id number] Transcribed By: Self Edit Transcribed Date: 07/22/2024 16:58 ET ASSESSMENT & PLAN Patient is 79 years old female with past medical history significant for type 2 diabetes, hypertension, chronic kidney disease stage IV, iron deficiency anemia, dyslipidemia, lung nodule brought to the [facility] after wellness check was called to police by her daughter. Patient was foundon the ground unable to get up and was confused. Patient admitted to medical floors for further management of chronic kidney disease, metabolic encephalopathy. # Acute on chronic kidney injury, crescentic glomerulonephritis requiring hemodialysis. -Patient is on hemodialysis Thursday. On prednisone, Bactrim every Thursday. Per net software architect patient's kidney biopsy consistent with crescentic glomerulonephritis. Rituximab given on 07/28/2024. Next dose in 2 weeks. Patient is being followed by net software architect for hemodia lysis. # Right upper lobe [...] weeks and will be tapered by the net software architect Continue PPI in the outpatient setting if patient is on prednisone Continue Bactrim DS in the outpatient setting thrice weekly () as patient is immunosuppressed Lung mass biopsy with Dr. Montez tomorrow Renal diet Outpatient HD arranged at [facility] - 1st shift [phone] on hold since July 21. I have given orders for the patient to start on Thursday Patient for discharge to [facility] Discussed with medical team. Patient to get transfused today [facility] From renal standpoint patient can be discharged tomorrow or on Thursday The outpatient facility needs to arrange for rituximab infusion on August 11 or at [facility] outpatient infusion-they can touch base with the renal MD [facility] for that shift for orders and dosage Discussed with the medical team/outpatient dialysis nursing staff and case making machine operator Chencho Wayne MD * Isidra Florence - 08/04/2024 9:38 AM EST [facility] Physical Therapy Treatment PT Discharge Recommendations: Inpatient rehab facility placement, long term facility placement Equipment Recommended: rolling walker Staff [...] a 79 y.o. female admitted to [facility] on 07/08/2024 with: Patient Active Problem List Diagnosis Hypertension Hyperlipidemia History of cancer of unknown primary site CKD (chronic kidney disease) stage 4, GFR 15-29 ml/min ([facility]) Iron deficiency anemia Impaired renal function Type 2 diabetes mellitus without complication, without long-term current use of insulin ([facility]) Lung mass Pulmonary nodule Fall prevention education [...] week PT Discharge Recommendations Inpatient rehab facility placement;long term facility placement Equipment Recommended rolling walker PT [...] PT Discharge Recommendations: Inpatient rehab facility placement, long term facility placement Equipment Recommended: rolling walker Barriers [...] RN - 08/04/2024 9:17 AM EST This functional tester typewriters received a call from [facility] where they have had a dialysis STR bed open and are accepting and going for insurance auth. ICC notified provider and will follow for transfer once insurance auth obtained. * Nelli Schmidt OT - 08/04/2024 8:30 AM EST [facility] Occupational Therapy Treatment Note DATE: July TIME IN: 0830 TIME OUT: 0900 Pt: Ana Conterras 561/561-2 DISCHARGE RECS: Inpatient rehab facility placement, long term facility placement EQUIPMENT RECS: Walker-rolling SAFE PT [...] Complete OT Discharge Recommendations Inpatient rehab facility placement;long term facility placement Equipment Recommended Walker-rolling ADDITIONAL COMMENTS: [...] Discharge Needs Discipline following for SNF placement Silk Spreader DANITZA: 08/06 Barriers: Accepting SNF w HD, Bronch w lung mass bx re-scheduled 08/05, ability to stand/pivot for family to transport to HD. Plan: ACR vs SNF pending accepting facility with HD and or ability to transport to [facility]. [facility] can only continue to hold OPT HD slot until 08/05. ICC s/w family and updated on MARYSE options. Bill [facility] Silk Spreader, , called [facility] and will attempt to assist with MARYSE [...] a 79 y.o. female : 1945 MR#: [id number] SUBJECTIVE Subjective Patient seen by the bedside [...] of fentanyl administered during the procedure. Scanner: NaviExpert [address] Dose reduction technique: AEC [...] Signed Date: 07/22/2024 17:00 ET Workstation ID: [id number] Transcribed By: Self Edit Transcribed Date: 07/22/2024 16:58 ET ASSESSMENT & PLAN Patient is 79 years old female with past medical history significant for type 2 diabetes, hypertension, chronic kidney disease stage IV, iron deficiency anemia, dyslipidemia, lung nodule brought to the [facility] after wellness check was called to police by her daughter. Patient was foundon the ground unable to get up and was confused. Patient admitted to medical floors for further management of chronic kidney disease, metabolic encephalopathy. # Acute on chronic kidney injury, crescentic glomerulonephritis requiring hemodialysis. -Patient is on hemodialysis Thursday. On prednisone, Bactrim every Thursday. Per net software architect patient's kidney biopsy consistent with crescentic glomerulonephritis. Rituximab given on 07/28/2024. Next dose in 2 weeks. Patient is being followed by net software architect for hemodia lysis. # Right upper lobe [...] Montez Renal diet Outpatient HD arranged at [facility] m-w-f 1st shift [phone] on hold since July 21. We need to know before Thursday if he can give away the chair and patient disposition Consider Kana Fernández or Maribeth if going to [facility] Discussed with medical team. Patient to get [...] Florence - 08/02/2024 2:31 PM EST [facility] Physical Therapy Treatment PT Discharge Recommendations: Inpatient rehab facility placement, long term facility placement Equipment Recommended: rolling walker Staff [...] a 79 y.o. female admitted to [facility] on 07/08/2024 with: Patient Active Problem List Diagnosis Hypertension Hyperlipidemia History of cancer of unknown primary site CKD (chronic kidney disease) stage 4, GFR 15-29 ml/min ([facility]) Iron deficiency anemia Impaired renal function Type 2 diabetes mellitus without complication, without long-term current use of insulin ([facility]) Lung mass Pulmonary nodule Fall prevention education [...] week PT Discharge Recommendations Inpatient rehab facility placement;long term facility placement Equipment Recommended rolling walker PT [...] PT Discharge Recommendations: Inpatient rehab facility placement, long term facility placement Equipment Recommended: rolling walker Barriers [...] a 79 y.o. female : 1945 MR#: [id number] SUBJECTIVE Subjective Patient seen by the bedside [...] Pulse: 81 88 88 Resp: 15 18 Temp: 36.4 ??C (97.6 ??F) 36.5 [...] of fentanyl administered during the procedure. Scanner: NaviExpert [address] Dose reduction technique: AEC [...] Signed Date: 07/22/2024 17:00 ET Workstation ID: [id number] Transcribed By: Self Edit Transcribed Date: 07/22/2024 16:58 ET ASSESSMENT & PLAN Patient is 79 years old female with past medical history significant for type 2 diabetes, hypertension, chronic kidney disease stage IV, iron deficiency anemia, dyslipidemia, lung nodule brought to the [facility] after wellness check was called to police by her daughter. Patient was foundon the ground unable to get up and was confused. Patient admitted to medical floors for further management of chronic kidney disease, metabolic encephalopathy. # Acute on chronic kidney injury, crescentic glomerulonephritis requiring hemodialysis. -Patient is on hemodialysis Thursday. On prednisone, Bactrim every Thursday. Per net software architect patient's kidney biopsy consistent with crescentic glomerulonephritis. Rituximab given on 07/28/2024. Next dose in 2 weeks. Patient is being followed by net software architect for hemodia lysis. # Right upper lobe [...] OT - 08/02/2024 1:35 PM EST [facility] Occupational Therapy Treatment Note DATE: Friday August 02, 2024 TIME IN: 1335 TIME OUT: 1405 Pt: Ana Contreras 561/561-2 DISCHARGE RECS: Inpatient rehab facility placement, long term facility placement EQUIPMENT RECS: Walker-rolling SAFE PT HANDLING REC FOR STAFF: 1 person min assist with RW PRECAUTIONS: Precautions Medical Precautions: Fall Risk Safety Interventions: Call chvaarria within reach, ID band on, Bed alarm [...] Complete OT Discharge Recommendations Inpatient rehab facility placement;long term facility placement Equipment Recommended Walker-rolling ADDITIONAL COMMENTS: [...] mod I Outcomes Date/Time User Outcome 08/01/24 032Dorothy Mendez RN Not Progressing Encounter Problems (Resolved) [...] Montez Renal diet Outpatient HD arranged at [facility] -- 1st shift [phone]) Consider Kana Fernández or Maribeth if going [...] Montez Renal diet Outpatient HD arranged at [facility] - 1st shift [phone]) Consider Kana Fernández or Maribeth if going to SNF Will follow clsoley w team Anthony Norton MD * Steve Cruz MD - 08/01/2024 4:42 PM EST Images from the original note were not included. SONYA PROGRESS NOTE Date: 08/01/2024 Author: Steve Cruz MD Patient ID: Ana Contreras is a 79 y.o. female : 1945 MR#: [id number] SUBJECTIVE Subjective Patient seen by the bedside [...] of fentanyl administered during the procedure. Scanner: NaviExpert [address] Dose reduction technique: AEC [...] Signed Date: 07/22/2024 17:00 ET Workstation ID: [id number] Transcribed By: Self Edit Transcribed Date: 07/22/2024 16:58 ET ASSESSMENT & PLAN Patient is 79 years old female with past medical history significant for type 2 diabetes, hypertension, chronic kidney disease stage IV, iron deficiency anemia, dyslipidemia, lung nodule brought to the [facility] after wellness check was called to police by her daughter. Patient was foundon the ground unable to get up and was confused. Patient admitted to medical floors for further management of chronic kidney disease, metabolic encephalopathy. # Acute on chronic kidney injury, crescentic glomerulonephritis requiring hemodialysis. -Patient is on hemodialysis Thursday. On prednisone, Bactrim every Thursday. Per net software architect patient's kidney biopsy consistent with crescentic glomerulonephritis. Rituximab given on 07/28/2024. Next dose in 2 weeks. Patient is being followed by net software architect for hemodia lysis. # Right upper lobe [...] Camara, PT - 08/01/2024 11:00 AM EST [place], [place] Acute Care PT TREATMENT 08/01/2024 Patient Information Ana Contreras 1945 79 y.o. Ambulation: Walking Assistance: Minimum assistance Device: Rolling walker Distance Ambulated (ft): (5 steps to transfer bed to commode + 3 to 4 steps forward and 3 to 4 steps back with RW) PLOF: Level of Cassel: Independent with mobility and functional transfers Lives [...] OT - 08/01/2024 10:50 AM EST [facility] Occupational Therapy Treatment Note DATE: Thursday August 01, 2024 TIME IN: 1050 TIME OUT: 1125 Pt: Ana Contreras 561/561-2 DISCHARGE RECS: long term facility placement, Inpatient rehab facility placement EQUIPMENT [...] - Evaluation Status Complete OT Discharge Recommendations long term facility placement;Inpatient rehab facility placement Equipment Recommended [...] onward) Start Ordered 07/27/24 1332 Adult diet [facility]; General; Renal- Chronic Kidney Disease; Self-Select Meals Diet effective now Question Answer Comment Location [facility] Diet Type (req) General General Diet Renal- Chronic Kidney Disease Is the patient able to participate in meal ordering? Self-Select Meals 07/27/24 1332 07/11/24 1133 Dietary nutrition supplements Two times daily (BID); [facility]; Diabetic Supplement Continuous Question Answer Comment Frequency Two times daily (BID) Location [facility] Supplements Diabetic Supplement 07/11/24 1132 History of [...] at home. No noted food allergies. Appetite AUDIO VISUAL PROJECT MANAGER: Poor Intake AUDIO VISUAL PROJECT MANAGER: Decreased Weight History: Wt Readings from Last [...] reports improved PO intake since last visit. CRAB BUTCHER at bedside who confirmed she has been [...] or fat depletion Skin: Skin intact per fire safety manager Nutrition Diagnosis: Code Type: None Identified Status: [...] RN Outcome: Not Progressing 08/01/2024 025 by Katnia Altamirano RN Outcome: Not Progressing Goal: Maintains [...] Goal: Patient will demonstrate safe mobility requirements 08/01/202408/2024 by Katina Altamirano RN Outcome: Not Progressing [...] Katina M, RN Outcome: Not Progressing Goal: Free from [...] sit to supine 08/01/2024 032 by Katina Altamirano, RN Outcome: [...] Katina Altamirano RN Outcome: Progressing 08/01/2024252 by Kaitna Altamirano RN Outcome: Not Progressing Problem: Physical [...] a 79 y.o. female : 1945 MR#: [id number] SUBJECTIVE Follow up:metabolic encephalopathy, renal failure requiring [...] of fentanyl administered during the procedure. Scanner: NaviExpert [address] Dose reduction technique: AEC [...] Signed Date: 07/22/2024 17:00 ET Workstation ID: [id number] Transcribed By: Self Edit Transcribed Date: 07/22/2024 16:58 ET ASSESSMENT & PLAN Patient is an 79 woman with HTN, DM2, CKD 4, iron deficiency anemia, hyperlipidemia, and recent diagnosis of lung nodule with planned bronchoscopy and EBUS , she was brought to the [facility] ER on 07/08 after wellness check [...] tomorrow Patient will need SNF with hemodialysis capability([facility] vs [facility]). ICC already aware and referrals placed. [...] the chair for 2 hrs. * Mindy Kazt MD - 07/30/2024 5:21 PM EST Images from the original note were not included. Progress Note CHIEF COMPLAINT F/u SUBJECTIVE Patient seen and examined MEDICAL HISTORY Past Medical History: Diagnosis Date Anemia Arthritis Blindness Decreased vision 11/29/2014 DX:Decreased vision Diabetes mellitus, type 2 (CMS/HCC) 02/14/2014 DX:Diabetes mellitus, type 2 ([facility]) DVT, lower extremity (CMS/[facility]) LEFT LEG Family history of early CAD [...] Montez Renal diet Outpatient HD arranged at [facility] - 1st shift [phone]) Consider Kana Jolene or Kathleenmtsusanna if going to [facility] Mindy Katz MD Cosigned by Miguel Quiles MD at 08/02/2024 2:08 PM EST * Jonny Mathur MD - 07/30/2024 12:28 PM EST Images from the original note were not included. SONYA PROGRESS NOTE Date: 07/30/2024 Author: Jonny Mathur MD Patient ID: Ana Contreras is a 79 y.o. female : 1945 MR#: [id number] SUBJECTIVE Follow up:metabolic encephalopathy, renal failure w/renal [...] of fentanyl administered during the procedure. Scanner: NaviExpert [address] Dose reduction technique: AEC [...] Signed Date: 07/22/2024 17:00 ET Workstation ID: [id number] Transcribed By: Self Edit Transcribed Date: 07/22/2024 [...] from the original note were not included. PLACENTIA PROGRESS NOTE Date: 07/29/2024 Author: Jonny Mathur MD Patient ID: Ana Contreras is a 79 y.o. female : 1945 MR#: [id number] SUBJECTIVE Follow up:metabolic encephalopathy, renal failure requiring [...] of fentanyl administered during the procedure. Scanner: NaviExpert [address] Dose reduction technique: AEC [...] Signed Date: 07/22/2024 17:00 ET Workstation ID: [id number] Transcribed By: Self Edit Transcribed Date: 07/22/2024 [...] EST Therapy session was attempted for Ana Chaparro Contreras by Nelli Schmidt OT on 07/29/2024. [...] Intake/Output Summary (Last 24 hours) at 07/29/2024 0752 Last data filed at 07/29/2024 0730 Gross [...] Montez Renal diet Outpatient HD arranged at [facility] - 1st shift [phone]) Consider Kana Fernández or Maribeth if going to [facility] Miguel Quiles MD * Sharon Solis RN [...] from the original note were not included. PLACENTIA PROGRESS NOTE Date: 07/28/2024 Author: Jonny Mathur MD Patient ID: Ana Contreras is a 79 y.o. female : 1945 MR#: [id number] SUBJECTIVE Follow up:metabolic encephalopathy, renal failure requiring [...] of fentanyl administered during the procedure. Scanner: NaviExpert [address] Dose reduction technique: AEC [...] Signed Date: 07/22/2024 17:00 ET Workstation ID: [id number] Transcribed By: Self Edit Transcribed Date: 07/22/2024 [...] SNF when ready for discharge. * Florecita Camara PT - 07/28/2024 2:45 PM EST Physical Therapy Therapy session was attempted for Almont A Contreras by Florecita Camara PT on [...] attending D/w [facility] and [facility] pathology MEDICAL HISTORY Past Medical History: Diagnosis [...] Montez Renal diet Outpatient HD arranged at [facility] -w- 1st shift [phone]) Consider Kana Jolene or Maribeth if going to [facility] Miguel Quiles MD * Jonny Mathur MD - 07/27/2024 7:02 PM EST Images from the original note were not included. SONYA PROGRESS NOTE Date: 07/27/2024 Author: Jonny Mathur MD Patient ID: Ana Contreras is a 79 y.o. female : 1945 MR#: [id number] SUBJECTIVE Follow up:metabolic encephalopathy, renal failure requiring [...] of fentanyl administered during the procedure. Scanner: NaviExpert [address] Dose reduction technique: AEC [...] Signed Date: 07/22/2024 17:00 ET Workstation ID: [id number] Transcribed By: Self Edit Transcribed Date: 07/22/2024 [...] Ordered 07/27/24 0001 Adult NPO diet Location: [facility]; Diet: NPO- Except for Medications Diet effective midnight Question Answer Comment Location [facility] Diet NPO- Except for Medications 07/26/24 1755 07/11/24 1133 Dietary nutrition supplements Two times daily (BID); [facility]; Diabetic Supplement Continuous Question Answer Comment Frequency Two times daily (BID) Location [facility] Supplements Diabetic Supplement 07/11/24 1132 History of [...] at home. No noted food allergies. Appetite AUDIO VISUAL PROJECT MANAGER: Poor Intake AUDIO VISUAL PROJECT MANAGER: Decreased Weight History: Wt Readings from Last [...] lung biopsy this morning. Currently NPO. Per fire safety manager, pt consuming 25-50% of meals since last [...] or fat depletion Skin: Skin intact per fire safety manager Nutrition Diagnosis: Code Type: None Identified Status: [...] Montez Renal diet Outpatient HD arranged at [facility] m-w-f 1st shift [phone]) Consider Kana Jolene or Maribeth if going to [facility] Miguel Quiles MD * Katina Machuca RN [...] a 79 y.o. female : 1945 MR#: [id number] SUBJECTIVE Follow up:metabolic encephalopathy, renal failure requiring [...] of fentanyl administered during the procedure. Scanner: NaviExpert [address] Dose reduction technique: AEC [...] Signed Date: 07/22/2024 17:00 ET Workstation ID: [id number] Transcribed By: Self Edit Transcribed Date: 07/22/2024 [...] Fernández considering pending bed and HD slot. [facility] accepting w family to provide HD transportation support if Pt can get in/out of private vehicle. * Nithya Constantino, PT - 07/26/2024 8:45 AM EST Patient: Ana Contreras Age: 79 y.o. Sex: female Acute encephalopathy [facility] Physical Therapy RE-Evaluation Ambulation: Walking Assistance: [...] Distance Ambulated (ft): 3 PLOF: Level of Cassel: Independent with mobility and functional transfers Lives With: Alone Type of Home: House Home Adaptive Equipment: Cane, Rollator Home Layout: One level Home Access: Stairs to enter without rails DME Needs: r walker PT Discharge Recommendation: Inpatient rehab facility placement, long term facility placement Reason for current recommendation based [...] Shower/Tub Tub/shower unit Prior Function Level of Cassel Independent with mobility and functional transfers Ambulation [...] week PT Discharge Recommendations Inpatient rehab facility placement;long term facility placement Equipment Recommended r walker PT [...] 11/29/2014 DX:Decreased vision Diabetes mellitus, type 2 ([facility]/HCC) 02/14/2014 DX:Diabetes mellitus, type 2 (HCC) DVT, [...] Montez Renal diet Outpatient HD arranged at [facility] -w- 1st shift [phone]) Consider Kana Fernández or Maribeth if going to [facility] Miguel Quiles MD * Katina Machuca RN [...] a 79 y.o. female : 1945 MR#: [id number] SUBJECTIVE Follow up:metabolic encephalopathy, renal failure requiring [...] 160 mg, oral, Once per day on Julio Wednesday Aren thiamine, 100 mg, oral, Daily heparin, 18 [...] of fentanyl administered during the procedure. Scanner: NaviExpert [address] Dose reduction technique: AEC [...] Signed Date: 07/22/2024 17:00 ET Workstation ID: [id number] Transcribed By: Self Edit Transcribed Date: 07/22/2024 [...] Montez Renal diet Outpatient HD arranged at [facility] -- 1st shift [phone]) Consider Kana Fernández or Maribeth if going to [facility] Miguel Quiles MD * Tarsha Corea RN - 07/25/2024 8:45 AM EST DANITZA: 07/28 Barriers: Renal Bx 07/22 w/ path pending, new HD, trend labs, H/H, heparin drip- LLE DVT, repeat Pt eval, lung mass biopsy 07/27 Plan: 1st choice - Kana Fernández or Maribeth d/t onsite HD. [facility] accepting w family to provide HD [...] Pt eval, lung mass biopsy 07/27 Plan: [facility] accepting w family to provide HD transportation support. ICK Stuart MD - 07/24/2024 1:11 PM EST Images from the original note were not included. SONYA PROGRESS NOTE Date: 07/24/2024 Author: Lencho Stuart MD Patient ID: Ana Contreras is a 79 y.o. female : 1945 MR#: [id number] SUBJECTIVE CC: Follow-up renal failure No complaints. [...] SNF bed, anticoagulation/lung mass biopsy HCP: DaughterDennise. [phone] * Tony Golden MD - 07/24/2024 8:59 [...] a 79 y.o. female : 1945 MR#: [id number] SUBJECTIVE CC: Follow-up renal failure Post procedure [...] bed. DC likely next week. HCP: DaughterDennise. [phone] * Nelli Schmidt OT - 07/23/2024 9:00 [...] steroid REC Kidney biopsy thursday HD - 5th treatment today Methylprednisolone 500 [...] a 79 y.o. female : 1945 MR#: [id number] SUBJECTIVE CC: Follow-up renal failure Seen in [...] acute findings. Patient was started on IV fluids,admitted for further monitoring and treatment. -RENE/ATN. No [...] DC likely next week. HCP: Daughter, Dennise. [phone] * Kayleigh Laguna RD - 07/22/2024 12:44 [...] Ordered 07/22/24 0001 Adult NPO diet Location: [facility]; Diet: NPO- Except for Medications Diet effective midnight Question Answer Comment Location [facility] Diet NPO- Except for Medications 07/21/24 1326 07/11/24 1133 Dietary nutrition supplements Two times daily (BID); [facility]; Diabetic Supplement Continuous Question Answer Comment Frequency Two times daily (BID) Location [facility] Supplements Diabetic Supplement 07/11/24 1132 Food/Nutrition History: Previous Diet / Nutrition Education / Counseling: Per MST screeening, pt reports weight loss of 24-33 lb in past 3 months, and reports poor PO intake. Pt living by herself prior to admission, but hassupport from children. History of DM- takes glipizide at home. No noted food allergies. 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 Per IPR, Pulmonary IR stated possible intervention 07/27. Plan: STR pending accepting facility w HD support. * Nithya Constantino, PT - 07/22/2024 8:30 AM EST Patient: Ana A Contreras Age: 79 y.o. Sex: female Acute encephalopathy [facility] Physical Therapy Treatment Ambulation: Walking Assistance: Minimum assistance Walking Deficit: Steadying, Verbal cueing, Supervision/safety awareness, Increased time to complete, Assist for trunk control, Assist for weight shifting, Limited endurance, Impaired balance, LE weakness Device: Rolling walker Distance Ambulated (ft): 2 PLOF: Level of Cassel: Independent with mobility and functional transfers Lives [...] Activity 3 sit to stand transfers at [facility], requiring only min assist for lift off [...] Plan PT Discharge Recommendations Inpatient rehab facility placement;long term facility placement Equipment Recommended r walker Barriers [...] mellitus, type 2 (HCC) DVT, lower extremity (CMS/[facility]) LEFT LEG Family history of early CAD [...] a 79 y.o. female : 1945 MR#: [id number] SUBJECTIVE CC: Follow-up renal failure Seen during [...] acute findings. Patient was started on IV fluids,admitted for further monitoring and treatment. -RENE/ATN. No [...] DC likely next week. HCP: Daughter, Dennise. [phone] * Louis Welch RN - 07/21/2024 12:55 [...] request to regional HD placement) Referral to [facility] made as patient lives in the [...] End of Shift Summary: Pt medicated at 6 with Oxycodone 5mg for bilateral leg pain. [...] a 79 y.o. female : 1945 MR#: [id number] SUBJECTIVE CC: Follow-up renal failure Seen in [...] renal biopsy, pending SNF bed. HCP: DaughterDennise. [phone] * Miguel Quiles MD - 07/20/2024 12:09 [...] Age: 79 y.o. Sex: female Acute encephalopathy [facility] Physical Therapy Treatment Ambulation: Walking Assistance: Moderate assistance Device: Rolling walker Distance Ambulated (ft): 2 PLOF: Level of Cassel: Independent with mobility and functional transfers Lives [...] ble's) Therapeutic Activity 2 sit-stand transfers at [facility], mod assist to adjust posture, hand and foot posture, and to facilitate forward trunk over ISABELLE. Pt stood, supported at [facility] with mod assist, limited by ble weakness, [...] Recommendations: Inpatient rehab facility placement Equipment Recommended: r.walker Time Spent: PT Time Calculation PT Start [...] a 79 y.o. female : 1945 MR#: [id number] SUBJECTIVE CC: Follow-up RENE, DVT and encephalopathy [...] days. Barrier: Heparin, anemia HCP: Daughter, Dennise. [phone] * Jose Lujan RN - 07/19/2024 11:20 [...] PRN for the MARTINEZ with improvement post nuclear medicine specialist. Pt's floorRN aware of leg pain [...] 07/19/2024 024 by Katnia Torres RN Outcome: Not Progressing [...] Patient will demonstrate safe mobility requirements 07/19/2024 024 by Katina Torres RN Outcome: [...] will follow hip precautions during transfers 07/19/2024 0246 by Katina Torres [...] a 79 y.o. female : 1945 MR#: [id number] SUBJECTIVE CC: Follow-up RENE, DVT and encephalopathy [...] over the next 1-3 days. HCP: DaughterDennise. [phone] * Kayleigh Laguna RD - 07/18/2024 4:24 [...] onward) Start Ordered 07/17/24 1206 Adult diet [facility]; Cardiac, Diabetic; 60 gm carb/Meal; Cardiac Diet effective now Question Answer Comment Location [facility] Diet Type (req) Cardiac Diet Type (req) Diabetic Diabetic 60 gm carb/Meal Diet Type (cardiac) Cardiac 07/17/24 1205 07/11/24 1133 Dietary nutrition supplements Two times daily (BID); [facility]; Diabetic Supplement Continuous Question Answer Comment Frequency Two times daily (BID) Location [facility] Supplements Diabetic Supplement 07/11/24 1132 History of [...] at home. No noted food allergies. Appetite AUDIO VISUAL PROJECT MANAGER: Poor Intake AUDIO VISUAL PROJECT MANAGER: Decreased Weight History: Wt Readings from Last [...] or fat depletion Skin: Skin intact per fire safety manager Nutrition Diagnosis: Code Type: None Identified Status: [...] 1345 Type of Visit: Initial Visit and Glaze Sprayer Rounding Reason for Visit: Spiritual/Emotional Support and Spiritual Assessment Time Spent: 25 Minutes Location: [address] [place] [address] Sacramental Encounters: Spiritual Distress Assessment: Spiritual Distress [...] and missed her two cats. Pt reportedbeing Druze while also reporting that she did not pray often. Glaze Sprayer's suggestion to pray that evening was received [...] usually? Transcendence Do you have a particular latter-day, jimena, or spirituality? Is your latter-day/spirituality/jimena challenged by what is happening to you [...] 11/29/2014 DX:Decreased vision Diabetes mellitus, type 2 ([facility]) 02/14/2014 DX:Diabetes mellitus, type 2 ([facility]) Family history of early CAD 03/01/2014 DX:Family [...] MD - 07/17/2024 9:05 AM EST Ana A Ben 07/08/2024 1945 79 y.o. [id number] Kwesi Guido, * INTERVAL HISTORY: No events [...] Signed Date: 07/16/2024 12:33 ET Workstation ID: [id number] Transcribed By: Self Edit Transcribed Date: 07/16/2024 [...] - pending clinical improvement HCP -Daughter Dennise [phone], she was updated at bedside today. 45 minutes were spent in patient care including [id number] time, chart review, discussion with providers, documentation, warehouse order selector. High complexity medical decision making. Health Care proxy with Phone number: Paul Contreras Jr (Son) Disclaimer: Speech recognition software was utilized to dictate portions of this document. Errors in chipper operator may be present. Please call / cortext [...] EST Ana Contreras 07/08/2024 1945 79 y.o. [id number] Kwesi Guido, * INTERVAL HISTORY: No events [...] Signed Date: 07/16/2024 12:33 ET Workstation ID: [id number] Transcribed By: Self Edit Transcribed Date: 07/16/2024 [...] - pending clinical improvement HCP -Daughter Dennise [phone], she was updated at bedside today. 60 minutes were spent in patient care including [id number] time, chart review, discussion with providers, documentation, warehouse order selector. High complexity medical decision making. Health Care proxy with Phone number: Disclaimer: Speech recognition software was utilized to dictate portions of this document. Errors in chipper operator may be present. Please call / cortext [...] 11/29/2014 DX:Decreased vision Diabetes mellitus, type 2 ([facility]/HCC) 02/14/2014 DX:Diabetes mellitus, type 2 ([facility]) Family history of early CAD 03/01/2014 DX:Family [...] on Thursday. Mindy Katz MD Cosigned by Checnho Wayne MD at 07/17/2024 10:05 AM EST [...] room. Report given to primary nurse Jolene Cardona, ILIR, Next Hemodialysis tx Thursday07/18/2024 Weight (Unable to [...] 11/29/2014 DX:Decreased vision Diabetes mellitus, type 2 ([facility]/HCC) 02/14/2014 DX:Diabetes mellitus, type 2 ([facility]) Family history of early CAD 03/01/2014 DX:Family [...] Ana Chaparro Contreras 07/08/2024 1945 79 y.o. [id number] Kwesi Guido, * INTERVAL HISTORY: No events [...] - pending clinical improvement HCP -Dr. Bowden [phone], she was updated at bedside today. Health Care proxy with Phone number: Disclaimer: Speech recognition software was utilized to dictate portions of this document. Errors in chipper operator may be present. Please call / cortext [...] Florence - 07/14/2024 2:14 PM EST [facility] Physical Therapy Evaluation & Treatment PT Discharge Recommendations: long term facility placement Staff Recommendations for safe patient [...] a 79 y.o. female admitted to [facility] on 07/08/2024. Patient Active Problem List Diagnosis Hypertension Hyperlipidemia History of cancer of unknown primary site CKD (chronic kidney disease) stage 4, GFR 15-29 ml/min ([facility]) Iron deficiency anemia Impaired renal function Type 2 diabetes mellitus without complication, without long-term current use of insulin ([facility]) Lung mass Acute encephalopathy Past Medical History: Diagnosis Date Anemia Arthritis Blindness Decreased vision 11/29/2014 DX:Decreased vision Diabetes mellitus, type 2 ([facility]) 02/14/2014 DX:Diabetes mellitus, type 2 ([facility]) Family history of early CAD 03/01/2014 DX:Family [...] Shower/Tub: Tub/shower unit Prior Function Level of Cassel: Independent with mobility and functional transfers Ambulation [...] 1 time per day PT Discharge Recommendations long term facility placement Equipment Recommended walker PT - [...] a 79 y.o. female admitted to [facility] on 07/08/2024 for Hyponatremia [E87.1] Acute [...] deficits listedabove and optimize function. PT recommends long term facility placement when medically stablefor safe discharge [...] 11/29/2014 DX:Decreased vision Diabetes mellitus, type 2 ([facility]CC) 02/14/2014 DX:Diabetes mellitus, type 2 ([facility]) Family history of early CAD 03/01/2014 DX:Family [...] EST Ana Contreras 07/08/2024 1945 79 y.o. [id number] Kwesi Guido, * INTERVAL HISTORY: No events [...] Wt Readings from Last 1 Encounters: 07/14/24 0600 83.5 kg (184 lb) 07/14/24 [...] performed without IV contrast. DLP: 613.10 mGy/cm Show de IngressosT Iterative reconstruction technique Findings: Respiratory motion artifact [...] lymphadenopathy. 3. Small bilateral pleural effusions, [place] ([id number]) -------- FINAL REPORT -------- Dictated By: Edilia Durbin Dictated Date: 07/12/2024 13:07 ET Assigned Physician: Edilia Durbin Reviewed and Electronically Signed By: Edilia Durbin Signed Date: 07/12/2024 13:19 ET Workstation ID: [id number] Transcribed By: Self Edit Transcribed Date: 07/12/2024 [...] - pending clinical improvement HCP -Dr. Bowden [phone], she was updated at bedside today. Health Care proxy with Phone number: Disclaimer: Speech recognition software was utilized to dictate portions of this document. Errors in chipper operator may be present. Please call / cortext [...] 11/29/2014 DX:Decreased vision Diabetes mellitus, type 2 ([facility]) 02/14/2014 DX:Diabetes mellitus, type 2 ([facility]) Family history of early CAD 03/01/2014 DX:Family [...] -Review of spot urine for electrolytes protein [id number] Q [place] is not clearly pointing towards significant prerenal [...] No indication today They agree to have BUFFER INFLATED PAD if she needs it Discussed with the medical team in detail about the patient Chencho Wayne MD * Kwesi Guido MD - 07/13/2024 10:44 AM EST Almont Krysta Contreras 07/08/2024 1945 79 y.o. [id number] Kwesi Guido, * INTERVAL HISTORY: No events [...] last 7 days Lab Units 07/13/24 0638 07/12/2461807/11/24 0607/10/24 0516 WBC AUTO K/mcL 20.6* 21.8* [...] - pending clinical improvement HCP -Dr. Bowden [phone], she was updated at bedside today. Health Care proxy with Phone number: Disclaimer: Speech recognition software was utilized to dictate portions of this document. Errors in chipper operator may be present. Please call / cortext [...] Dietary nutrition supplements Two times daily (BID); [facility]; Diabetic Supplement Continuous Question Answer Comment Frequency Two times daily (BID) Location [facility] Supplements Diabetic Supplement 07/11/24 1132 07/11/24 1133 Adult diet [facility]; Cardiac, Diabetic; 75 gm carb/Meal; No Added Salt Diet effective now Question Answer Comment Location [facility] Diet Type (req) Cardiac Diet Type (req) [...] at home. No noted food allergies. Appetite AUDIO VISUAL PROJECT MANAGER: Poor Intake AUDIO VISUAL PROJECT MANAGER: Stable Weight History: Wt Readings from Last [...] or fat depletion Skin: Skin intact per fire safety manager Nutrition Diagnosis: Code Type: None Identified Status: [...] Guido MD - 07/12/2024 11:47 PM EST [facility] Provider Response Note PATIENT: ANA CONTRERAS : 1945 ADMIT DATE: 07/08/2024 2:44 PM DISCH DATE: RESPONDING PROVIDER #: [id number] PROVIDER RESPONSE TEXT: The patient has metabolic encephalopathy. QUERY TEXT: Encephalopathy is documented in the medical record. Please specify the type. H&P 07/08/2024 (3) Patient will be transferred to the care of [place] staff for further management of their acute [...] Ana Chaparro Contreras 07/08/2024 1945 79 y.o. [id number] Kwesi Guido, * INTERVAL HISTORY: No events [...] Lab Units 07/12/24 0607/11/24 0607/10/24 0516 07/09/24 0625 WBC AUTO K/mcL 21.8* [...] Signed Date: 07/10/2024 14:08 ET Workstation ID: [id number] Transcribed By: Self Edit Transcribed Date: 07/10/2024 [...] lactated Ringer's, Last Rate: 100 mL/hr (07/12/24 6196) ASSESSMENT/PLAN: Mrs. Contreras is a 79 y.o. [...] - pending clinical improvement HCP -Dr. Bowden [phone], she was updated at bedside today. Health Care proxy with Phone number: Disclaimer: Speech recognition software was utilized to dictate portions of this document. Errors in chipper operator may be present. Please call / cortext [...] MD - 07/11/2024 5:44 PM EST Ana Contreras 07/08/2024 1945 79 y.o. [id number] Kwesi D Malik-Novak, * INTERVAL HISTORY: No events overnight, discussed [...] Units 07/11/24 0621 07/10/24 0516 07/09/24 0625 01/04/22 203007/08/24 1110 WBC AUTO K/mcL 18.4* 16.9* 18.4* [...] 07/11/24 1551 07/11/24 1110 07/11/24 0817 07/11/24 0607/10/242032 POCT GLUCOSE mg/dL 259* 301* 191* -- [...] Signed Date: 07/10/2024 14:08 ET Workstation ID: [id number] Transcribed By: Self Edit Transcribed Date: 07/10/2024 [...] - pending clinical improvement HCP -Dr. Bowden [phone] Her son Paul was updated at bedside with her permission Health Care proxy with Phone number: Disclaimer: Speech recognition software was utilized to dictate portions of this document. Errors in chipper operator may be present. Please call / cortext me if any questions. Portions of this note such ROS, Exam, Assessment and Plan were copy pasted from previous notes. Information was reviewed and changes were made accordingly. I agree with above mentioned information * Kwesi Guido MD - 07/11/2024 5:44 PM EST [facility] Provider Response Note PATIENT: ANA CONTRERAS : 1945 ADMIT DATE: 07/08/2024 2:44 PM DISCH DATE: RESPONDING PROVIDER #: [id number] PROVIDER RESPONSE TEXT: The patient has traumatic [...] OT - 07/11/2024 8:34 AM EST [facility] Occupational Therapy Evaluation DATE: Thursday July 11, 2024 TIME IN: 0730 TIME OUT: 0820 Pt: Ana Contreras ROOM: 561/561-2 Discharge Recommendation: long term facility Equipment Recommendation: walker Staff recommendations for [...] a 79 y.o. female admitted to [facility] on 07/08/2024. Occupational Therapy evaluation and treatment ordered to assess ADL independence, safety, and functional mobility for discharge planning. Patient Active Problem List Diagnosis Hypertension Hyperlipidemia History of cancer of unknown primary site CKD (chronic kidney disease) stage 4, GFR 15-29 ml/min ([facility]) Iron deficiency anemia Impaired renal function Type 2 diabetes mellitus without complication, without long-term current use of insulin ([facility]) Lung mass Acute encephalopathy Past Medical History: Diagnosis Date Anemia Arthritis Blindness Decreased vision 11/29/2014 DX:Decreased vision Diabetes mellitus, type 2 ([facility]) 02/14/2014 DX:Diabetes mellitus, type 2 ([facility]) Family history of early CAD 03/01/2014 DX:Family [...] to assess vitals and check blood glucose. Daughter in at end of session. Pt with poor [...] - Evaluation Status: Complete OT Discharge Recommendations: long term facility placement, Home OT Equipment Recommended: Walker-standard, [...] PT - 07/10/2024 2:37 PM EST [facility] Physical Therapy Evaluation & Treatment PT Discharge Recommendations: long term facility placement Staff Recommendations for safe patient [...] a 79 y.o. female admitted to [facility] on 07/08/2024. Patient Active Problem List Diagnosis Hypertension Hyperlipidemia History of cancer of unknown primary site CKD (chronic kidney disease) stage 4, GFR 15-29 ml/min ([facility]) Iron deficiency anemia Impaired renal function Type 2 diabetes mellitus without complication, without long-term current use of insulin ([facility]) Lung mass Acute encephalopathy Past Medical History: Diagnosis Date Anemia Arthritis Blindness Decreased vision 11/29/2014 DX:Decreased vision Diabetes mellitus, type 2 ([facility]) 02/14/2014 DX:Diabetes mellitus, type 2 ([facility]) Family history of early CAD 03/01/2014 DX:Family [...] of Steps: 3 Prior Function Level of Cassel: Independent with mobility and functional transfers Ambulation [...] of Steps 3 Prior Function Level of Cassel Independent with mobility and functional transfers Ambulation [...] 1 time per day PT Discharge Recommendations long term facility placement PT - Evaluation Status Complete [...] a 79 y.o. female admitted to [facility] on 07/08/2024 for Hyponatremia [E87.1] Acute [...] listed above and optimize function. PT recommends long term facility placement when medically stable for safe [...] a 79 y.o. female : 1945 MR#: [id number] SUBJECTIVE CC: Here with fall, RENE, hyponatremia [...] Signed Date: 07/09/2024 09:03 ET Workstation ID: [id number] Transcribed By: Self Edit Transcribed Date: 07/09/2024 [...] - pending clinical improvement HCP -Dr. Bowden [phone] -I met with her at the bedside [...] Health RN;PT;OT Discipline following for SNF placement Silk Spreader ICC confirmed demographics fern Bowden, daughter. Barriers: Legally blind, s/p found down, rene, rhabdo, anemia w transfusion, IVF, trend labs, PT, elevated glucose Dispo: VNA and STR referrals initiated per Pt Choice. Pt lives alone w family support. Interested in community resources, SW consulted * Maria Alejandra Melendez MD - 07/09/2024 8:29 AM EST Images from the original note were not included. PLACENT[facility] PROGRESS NOTE Date: 07/09/2024 Author: Maria Alejandra Melendez MD Patient ID: Ana Contreras is a 79 y.o. female : 1945 MR#: [id number] SUBJECTIVE CC: Here with fall, RENE, hyponatremia [...] Signed Date: 07/08/2024 14:07 ET Workstation ID: [id number] Transcribed By: Self Edit Transcribed Date: 07/08/2024 [...] Signed Date: 07/08/2024 12:27 ET Workstation ID: [id number] Transcribed By: Self Edit Transcribed Date: 07/08/2024 [...] Signed Date: 07/08/2024 12:23 ET Workstation ID: [id number] Transcribed By: Self Edit Transcribed Date: 07/08/2024 [...] Dispo -pending clinical improvement HCP -Dr. Bowden [phone] -I met with her at the bedside [...] infectious concerns): [] Yes / [x] No Manager Business Operations: [] Yes / [x] No If YES, Cardiac Rhythm: [] NSR, [] SB, [] ST, [] A-FIB, [] A-Flutter, [] Pacemaker, [] 1st Degree HB, [] 2nd Degree HB, [] 3rd Degree HB Reason for Manager Business Operations: VS: Visit Vitals BP (!) 148/62 (BP [...] and [place]: [place] [phone] * Michelle Christie RN - 07/08/2024 3:51 PM EST 07/08/24 9889 Initial Transition Plan Initial Transition Plan Jail Facility Back up Transition Plan Back up Transition plan Home Health Care Discharge Planning Contact (Name, Phone #, Relationship) for DC Planning Dennise Nj daughter [phone] Living Arrangements Alone Type of Residence Private residence (apartment with 6 steps to enter/no elevator) Assistive Devices Walker;Cane Support Systems Children;Extended family Medication Coverage Has Med Coverage Under Insurance Plan Yes Anticipated Discharge Needs Home Health PT;RN Discipline following for SNF placement Silk Spreader Patient lives alone in a first floor [...] for wide VNA and STR including: [facility] and placed in Epic. HCP completed and [...] - 07/08/2024 10:32 AM EST Pt to [facility] via [facility]. Unwitnessed mechanical fall this [...] REFLEX MICROSCOPIC AND CULTURE - Abnormal Specific [place] Urine 1.020 pH, Urine 5.5 Leukocytes, Urine [...] Procedure Abnormality Status --------- ------ CBC auto differential[[id number]] Abnormal Final result Please view results for these tests on the individual orders. TROPONIN I HIGH SENSITIVITY URINALYSIS WITH REFLEX MICROSCOPIC AND CULTURE Narrative: The following orders were created for panel order Urinalysis with reflex microscopic and culture. Procedure Abnormality Status --------- ------ Urinalysis with reflex ...[[id number]] Abnormal Final result Robertson urine culture tube[[id number]] In process Please view results for these [...] Signed Date: 07/08/2024 12:27 ET Workstation ID: [id number] Transcribed By: Self Edit Transcribed Date: 07/08/2024 12:[address] Head wo Contrast Final Result NO ACUTE INTRACRANIAL ABNORMALITY. -------- FINAL REPORT -------- Dictated By: GLENNA SOLITRAIO Dictated Date: 07/08/2024 12:22 ET Assigned Physician: GLENNA SOLITARIO Reviewed and Electronically Signed By: GLENNA SOLITARIO Signed Date: 07/08/2024 12:23 ET Workstation ID: [id number] Transcribed By: Self Edit Transcribed Date: 07/08/2024 [...] 1505 RYLEY Rowe 07/09/24 1053 Cosigned by jJ Wolfe MD at 07/10/2024 7:08 AM EST documented in this encounter H&P Notes * Cecily Montez MD - 08/05/2024 10:58 AM EST Plan for [facility] EBUS. Source Note - RYLEY Harris - 07/13/2024 10:28 AM EST Patient currently admitted to [facility] for RENE and anemia. Possible need for HD. Will cancel her lance bronch/EBUS scheduled 07/14/24 and reschedule in the next couple weeks. * RYLEY Rivas - 07/08/2024 3:39 PM EST Images from the original note were not included. SONYA HISTORY AND PHYSICAL Please contact author [RYLEY Rivas] via [employer]. Patient: Ana Contreras Admission Date/Time: 07/08/2024 10:31 [...] was found down on the ground by [facility]. She was unsure the details of [...] will be transferred to the care of [place] staff for further management of their acute [...] Signed Date: 07/08/2024 14:07 ET Workstation ID: [id number] Transcribed By: Self Edit Transcribed Date: 07/08/2024 14:[address] Cervical Spine wo Contrast Final Result No acute cervical spine fracture. -------- FINAL REPORT -------- Dictated By: GLENNA SOLITARIO Dictated Date: 07/08/2024 12:24 ET Assigned Physician: GLENNA SOLITARIO Reviewed and Electronically Signed By: GLENNA SOLITARIO Signed Date: 07/08/2024 12:27 ET Workstation ID: [id number] Transcribed By: Self Edit Transcribed Date: 07/08/2024 12:[address] Head wo Contrast Final Result NO ACUTE INTRACRANIAL ABNORMALITY. -------- FINAL REPORT -------- Dictated By: GLENNA SOLITARIO Dictated Date: 07/08/2024 12:22 ET Assigned Physician: GLENNA SOLITARIO Reviewed and Electronically Signed By: GLENNA SOLITARIO Signed Date: 07/08/2024 12:23 ET Workstation ID: [id number] Transcribed By: Self Edit Transcribed Date: 07/08/2024 [...] onward) Start Ordered 07/08/24 1438 Adult diet [facility]; General; Regular Diet effective now Question Answer Comment Location [facility] Diet Type (req) General General Diet Regular 07/08/24 1444 [x] Lines, tubes, drains: IV access [x] Medication reconciliation Health Care proxy with Phone number Dennise Nj daughter [phone] Cosigned by Wayne Donahue MD at 07/15/2024 [...] L4, and 11R. Surgeon: Cecily Montez MD Surveyor Chain Helper: None Specimens: Above for pathology/cytology/microbiology Anesthesia: General [...] the appropriate places and confirmed with the SkyBridge dimension software. At this point, a timeout [...] Insertion of 18g/10cm Bard Powerglide midline Lot: [id number] Exp: 2025-05-28 Indications: Difficult draw with frequent [...] Fela Palomo MD Staff Role Emilie Silva Customer Quality Engineer Dorothea Garay Customer Quality Engineer Lay Roth Customer Quality Engineer Diaz Denise RN CV Invasive Nurse Fela [...] onward) Start Ordered 07/08/24 1438 Adult diet [facility]; General; Regular Diet effective now Question Answer Comment Location [facility] Diet Type (req) General General Diet Regular 07/08/24 1444 History of presenting illness: Patient is a 79 y.o. female with a history of Past Medical History: Diagnosis Date Anemia Arthritis Blindness Decreased vision 11/29/2014 DX:Decreased vision Diabetes mellitus, type 2 ([facility]) 02/14/2014 DX:Diabetes mellitus, type 2 (HCC) Family [...] at home. No noted food allergies. Appetite AUDIO VISUAL PROJECT MANAGER: Poor Intake AUDIO VISUAL PROJECT MANAGER: Decreased Weight History: Wt Readings from Last [...] (184 lb 14.4 oz) Weight history in [facility] indicates weight has been stable between 168-178 lb over past year ([id number] lb). 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 [employer] for homeless [employer] Family History Problem Relation Name Age of [...] should gradually improve, can get input from net software architect, please call me for an y question documented in this encounter Plan of Treatment Upcoming Encounters Date Type Department Care Team (Late st Contact Info) Description 08/22/2024 8:30 AM EST Appointment [facility] [address] [facility] 2nd [place] [phone] 08/23/2024 3:00 PM EST Office Visit Gastroenterology - [address] [facility] [address] [facility] [address] [place] [phone] Josiane Smith NP [address] [facility] [address] [place] [address] 09/05/2024 10:00 AM EDT Office Visit Endocrinology - [place] [address] [place] [phone] Kathy Michelle PA [address] [place] [address] 09/06/2024 11:00 AM EDT Ancillary Procedure [facility] [address] [facility] [address] [place] [phone] 10/06/2024 1:15 PM EDT [facility] [address] [place] [phone] Eloisa Vázquez, [address] [place] [address] 11/14/2024 11:30 AM EDT Appointment [facility] CT Scan [address] [place] [phone] 12/01/2024 10:00 AM EDT Office Visit Thoracic Surgery - [place] [address] [facility] [address] [place] [phone] Cecily Montez MD [address] [facility] [address] [place] [address] Pending Results Name Type Priority Associated Diagnoses [...] Routine 025 12:20 PM EST Pulmonary nodule WA BRONCHOSCOPY RIGID/FLEXIBLE W/EBUS >=3 MEDIASTINAL/HILAR LYMPH NODES 08/05/2024 11:46 AM EST Pulmonary nodule WA BRONCHOSCOPY INCL FLUROSCOPIC GUIDANCE W PLCMNT FIDUCIAL MARKER SGL/MULT 08/05/2024 11:46 AM EST Pulmonary nodule WA BRONCHOSCOPY RIGID/FLEXIBLE INCL FLUORO W/THERAPY ASPIRATION INITIAL [...] BLOOD Routine 07/11/2024 8: 17 AM EST [place] IMMUNOFIXATION ELECTROPHORESIS SERUM Routine 07/11/2024 6:21 AM [...] BLOOD Routine 07/08/2024 6: 19 PM EST [place] PROTEIN ELECTROPHORETIC FRACTIONATION & QUANTITATION SERUM Routine [...] Final Result [facility] [address] [place] [address], [place] [phone] * (ABNORMAL) POCT Glucose, blood (08/06/2024 7:26 AM EST) Glucose POCT 66(L) 70 - 100 mg/dL 08/06/2024 7:27 AM EST [facility] Blood Capillary blood specimen / Unknown 08/06/2024 7:26 AM EST 08/06/2024 7:28 AM EST us Steve Cruz MD LAB POINT OF CA RE TEST DOCKED DEVICE UNSOLICITED RESULTS Final Result [facility] [address] [place] [address], [place] [phone] * (ABNORMAL) POCT Glucose, blood (08/05/2024 8:08 PM EST) Glucose POCT 263(H) 70 - 100 mg/dL 08/05/2024 8:08 PM EST [facility] Blood Capillary blood specimen / Unknown 08/05/2024 8:08 PM EST 08/05/2024 8:09 PM EST us Steve Cruz MD LAB POINT OF CA RE TEST DOCKED DEVICE UNSOLICITED RESULTS Final Result Performing Organization Address [facility] Co de Phone Number [facility] [address] [place] [address], [place] [phone] * (ABNORMAL) POCT Glucose, blood (08/05/2024 4:40 PM EST) Glucose POCT 270(H) 70 - 100 mg/dL 08/05/2024 4:42 PM EST [facility] Blood Capillary blood specimen / Unknown 08/05/2024 4:40 PM EST 08/05/2024 4:43 PM EST us Steve Cruz MD LAB POINT OF CA RE TEST DOCKED DEVICE UNSOLICITED RESULTS Final Result Performing Organization Address [facility] de Phone Number [facility] [address] [place] [address], [place] [phone] * XR Chest 1 View (08/05/2024 1:43 [...] Signed Date: 08/05/2024 13:49 ET Workstation ID: [id number] Transcribed By: Self Edit Transcribed Date: 08/05/2024 [...] Signed Date: 08/05/2024 13:49 ET Workstation ID: [id number] Transcribed By: Self Edit Transcribed Date: 08/05/2024 13:46 ET Cecily Montez MD IMG XR PROCEDURES Final Result * (ABNORMAL) POCT Glucose, blood (08/05/2024 1:40 PM EST) Glucose POCT 148(H) 70 - 100 mg/dL 08/05/2024 1:41 PM EST [facility] Blood Capillary blood specimen / Unknown 08/05/2024 1:40 PM EST 08/05/2024 1:42 PM EST Steve Cruz MD LAB POINT OF CA RE TEST DOCKED DEVICE UNSOLICITED RESULTS Final Result [facility] [address] [place] [address], [place] [phone] * Concentration (08/05/2024 12:32 PM EST) AFB Concentration Performed 025 3:05 PM EST [facility] Structure of upper lobe of right lung / Unknown 08/05/2024 12:32 PM EST 08/05/2024 1:17 PM EST Narrative [facility] - 08/06/2024 3:05 PM EST Performed at: ??01 - [facility] [address] ??[id number] Financial Accounting Analyst: Diane Belle MD, Phone: ??[phone] us Cecily Montez MD LAB BLOOD ORDERABLES Final Resul t Performing Organization Address [facility] de Phone Number [facility] * Acid fast [...] ORDER SYLVAIN Final Result Performing Organization Address [facility] Phone Number [facility] [address] [place] [address], [place] [phone] * Culture bronchial with gram stain (08/05/2024 [...] ORDER SYLVAIN Final Result Performing Organization Address [facility] de Phone Number [facility] [address] [place] [address], [place] [phone] * XR Chest 1 View (08/05/2024 12:29 [...] Signed Date: 08/08/2024 07:52 ET Workstation ID: [id number] Transcribed By: Self Edit Transcribed Date: 08/08/2024 07:50 ET Procedure Note Vin Josue MD - 08/08/2024 Fluoroscopic spot radiographs obtained during navigational bronchoscopicbiopsy are submitted. No radiologist consultation was requested orprovided during this procedure and there is no radiologist professionalcharge. This report is generated for documentation purposes only. The dose for this procedure was 20.71 mGy. RI CPT II G9500 -------- FINAL REPORT -------- Dictated By: Vin Josue Dictated Date: 08/08/2024 07:50 ET Assigned Physician: Vin Josue Reviewed and Electronically Signed By: Vin Josue Signed Date: 08/08/2024 07:52 ET Workstation ID: [id number] Transcribed By: Self Edit Transcribed Date: 08/08/2024 [...] lymph node elements present. 08/09/2024 1:04 PM [facility] Specimen A Adequacy Satisfactory for evaluation 08/09/2024 1:04 PM [facility] Specimen B Adequacy Satisfactory for evaluation 08/09/2024 1:04 PM [facility] Specimen C Adequacy Satisfactory for evaluation 08/09/2024 1:04 PM [facility] Specimen D Adequacy Satisfactory for evaluation 08/09/2024 1:04 PM [facility] Specimen E Adequacy Specimen processed and examined, but unsatisfactory for eval of abnormal epithelial 08/09/2024 1:04 PM [facility] Specimen F Adequacy Satisfactory for evaluation 08/09/2024 1:04 PM [facility] Gross Description A. Lung, Right [...] fixation time 54 hours. 08/09/2024 1:04 PM [facility] Disclaimer Unless otherwise specified, all tissue is 10% NB formalin fixed and paraffin embedded. Technical cytopathology services provided by [facility], at [address] [place] [address] (CLIA # [id number]/Gladys Prince MD, Cement [employer] Maintenance.) 08/09/2024 1:04 PM [facility] Brushing, function (observable entity) Structure [...] MD LAB CYTOLOGY ORDERABLES Final Re sult [facility] [address] [place] [address], * (ABNORMAL) Basic metabolic panel (08/05/2024 7:04 AM EST) Sodium 133 133 - 145 mmol/L LAB CHEMISTRY METHOD 08/05/2024 8:01 AM [facility] Potassium 4.5 3.5 - 5.5 mmol/L LAB CHEMISTRY METHOD 08/05/2024 8:01 AM [facility] Chloride 96 96 - 110 mmol/L LAB CHEMISTRY METHOD 08/05/2024 8:01 AM [facility] CO2 32 21 - 32 mmol/L LAB CHEMISTRY METHOD 08/05/2024 8:01 AM [facility] Anion Gap 5 3 - 11 LAB CHEMISTRY METHOD 08/05/2024 8:01 AM [facility] Glucose 138(H) 70 - 100 mg/dL LAB CHEMISTRY METHOD 08/05/2024 8:01 AM [facility] BUN 53(H) 5 - 25 mg/dL LAB CHEMISTRY METHOD 08/05/2024 8:01 AM [facility] Creatinine 3.91(H) 0.50 - 1.10 mg/dL LAB CHEMISTRY METHOD 08/05/2024 8:01 AM [facility] eGFR 11(L) >=60 mL/min/1. 73m2 LAB CHEMISTRY METHOD 08/05/2024 8:01 AM [facility] Comment:Calculation based on the??Chronic Kidney Disease Epidemiology Collaboration (CKD-EPI) equation refit??without adjustment for race. BUN/Creatinine Ratio 13.6 LAB CHEMISTRY METHOD 08/05/2024 8:01 AM [facility] Calcium 8.4(L) 8.5 - 10.5 mg/dL LAB CHEMISTRY METHOD 08/05/2024 8:01 AM [facility] Blood Venous blood specimen / Unknown Venipuncture / Unknown 08/05/2024 7:04 AM EST 08/05/2024 7:34 AM EST Steve Cruz MD LAB BLOOD ORDERABLES Fi nal Result [facility] [address] [place] [address], * (ABNORMAL) CBC - Every 3 Days (08/05/2024 7:03 AM EST) WBC 8.8 4.8 - 10.8 K/mcL LAB HEMETOLOGY METHOD 08/05/2024 7:42 AM [facility] RBC 2.90(L) 3.80 - 4.80 M/mcL LAB HEMETOLOGY METHOD 08/05/2024 7:42 AM [facility] Hemoglobin 7.9(L) 11.5 - 16.0 g/dL LAB HEMETOLOGY METHOD 08/05/2024 7:42 AM [facility] Hematocrit 25.5(L) 35.0 - 47.0 % LAB HEMETOLOGY METHOD 08/05/2024 7:42 AM [facility] MCV 87.6 79.0 - 98.0 FL LAB HEMETOLOGY METHOD 08/05/2024 7:42 AM [facility] MCH 27.1 27.0 - 32.0 pcg LAB HEMETOLOGY METHOD 08/05/2024 7:42 AM [facility] MCHC 31.0(L) 32.0 - 37.0 g/dL LAB HEMETOLOGY METHOD 08/05/2024 7:42 AM EST [facility] RDW 21.9(H) 11.0 - 15.0 % LAB HEMETOLOGY METHOD 08/05/2024 7:42 AM [facility] Platelets 180 130 - 400 K/mcL LAB HEMETOLOGY METHOD 08/05/2024 7:42 AM [facility] MPV 10.8 7.0 - 11.0 FL LAB HEMETOLOGY METHOD 08/05/2024 7:42 AM [facility] NRBC 0.0 <1.0 % LAB HEMETOLOGY METHOD 08/05/2024 7:42 AM [facility] NRBC Absolute 0.00 <0.10 K/mcL LAB HEMETOLOGY METHOD 08/05/2024 7:42 AM [facility] Blood Venous blood specimen / Unknown Venipuncture / Unknown 08/05/2024 7:03 AM EST 08/05/2024 7:34 AM EST Lencho Stuart MD LAB BLOOD ORDERABLES Final R esult [facility] [address] [place] [address], * (ABNORMAL) POCT Glucose, blood (08/04/2024 8:39 PM EST) Glucose POCT 352(H) 70 - 100 mg/dL 08/04/2024 8:40 PM EST [facility] Blood Capillary blood specimen / Unknown 08/04/2024 8:39 PM EST 08/04/2024 8:41 PM EST Steve Cruz MD LAB POINT OF CA RE TEST DOCKED DEVICE UNSOLICITED RESULTS Final Result [facility] [address] [place] [address], [place] [phone] * (ABNORMAL) POCT Glucose, blood (08/04/2024 5:36 PM EST) Glucose POCT 376(H) 70 - 100 mg/dL 08/04/2024 5:37 PM EST [facility] Blood Capillary blood specimen / Unknown 08/04/2024 5:36 PM EST 08/04/2024 5:38 PM EST us Steve Cruz MD LAB POINT OF CA RE TEST DOCKED DEVICE UNSOLICITED RESULTS Final Result [facility] [address] [place] [address], [place] [phone] * (ABNORMAL) POCT Glucose, blood (08/04/2024 11:05 AM EST) Glucose POCT 130(H) 70 - 100 mg/dL 08/04/2024 11:07 AM EST [facility] Blood Capillary blood specimen / Unknown 08/04/2024 11:05 AM EST 08/04/2024 11:08 AM EST us Steve Cruz MD LAB POINT OF CA RE TEST DOCKED DEVICE UNSOLICITED RESULTS Final Result [facility] [address] [place] [address], [place] [phone] * (ABNORMAL) POCT Glucose, blood (08/04/2024 8:03 AM EST) Glucose POCT 116(H) 70 - 100 mg/dL 08/04/2024 8:05 AM EST [facility] Blood Capillary blood specimen / Unknown 08/04/2024 8:03 AM EST 08/04/2024 8:07 AM EST us Steve Cruz MD LAB POINT OF CA RE TEST DOCKED DEVICE UNSOLICITED RESULTS Final Result [facility] [address] [place] [address], [place] [phone] * (ABNORMAL) Creatinine, Serum - Every 7 [...] ORDERABLES Final Re sult Performing Organization Address City/[facility]/ZIP Co de Phone Number [facility] [address] [place] [address], [place] [phone] * (ABNORMAL) POCT Glucose, blood (08/03/2024 9:59 PM EST) Glucose POCT 135(H) 70 - 100 mg/dL 08/03/2024 9:59 PM EST [facility] Blood Capillary blood specimen / Unknown 08/03/2024 9:59 PM EST 08/03/2024 10:00 PM EST us Steve Cruz MD LAB POINT OF CA RE TEST DOCKED DEVICE UNSOLICITED RESULTS Final Result [facility] [address] [place] [address], [place] [phone] * (ABNORMAL) POCT Glucose, blood (08/03/2024 3:47 PM EST) Glucose POCT 304(H) 70 - 100 mg/dL 08/03/2024 3:48 PM EST [facility] Blood Capillary blood specimen / Unknown 08/03/2024 3:47 PM EST 08/03/2024 3:49 PM EST us Steve Cruz MD LAB POINT OF CA RE TEST DOCKED DEVICE UNSOLICITED RESULTS Final Result Performing Organization Address [facility] [facility]/ZIP Co de Phone Number [facility] [address] [place] [address], * (ABNORMAL) POCT Glucose, blood (08/03/2024 12:35 PM EST) Glucose POCT 125(H) 70 - 100 mg/dL 08/03/2024 12:59 PM EST [facility] Blood Capillary blood specimen / Unknown 08/03/2024 12:35 PM EST 08/03/2024 1:00 PM EST us Steve Cruz MD LAB POINT OF CA RE TEST DOCKED DEVICE UNSOLICITED RESULTS Final Result [facility] [address] [place] [address], [place] [phone] * Hepatitis B surface antigen with reflex to confirmation (08/03/2024 8:49 AM EST) Hepatitis B Surface Ag Negative Negative LAB CHEMISTRY METHOD 08/03/2024 10:11 AM EST [facility] Blood Venous blood specimen / Unknown Venipuncture / Unknown 08/03/2024 8:49 AM EST 08/03/2024 9:22 AM EST [facility] - 08/03/2024 10:11 AM EST Over the counter supplements containing high doses of biotin may interfere with this assay. ??If interference is suspected, patients shoud be retested after refraining from biotin supplements for 72 hours. Steve Cruz MD LAB BLOOD ORDERABLES Fi nal Result Performing Organization Address [facility] Co de Phone Number [facility] [address] [place] [address], [place] [phone] * Hepatitis B surface antibody quantitative (08/03/2024 8:49 AM EST) Pathologist [facility] Hepatitis B Surface Ab Negative Negative LAB CHEMISTRY METHOD 08/03/2024 9:59 AM EST [facility] Hepatitis B Surface Ab Quantitative <3.1 mIU/mL LAB CHEMISTRY METHOD 08/03/2024 9:59 AM EST [facility] Blood Venous blood specimen / Unknown Venipuncture / Unknown 08/03/2024 8:49 AM EST 08/03/2024 9:22 AM EST [facility] - 08/03/2024 9:59 AM EST >=10 mIU/mL is considered to be consistent with immunity. Steve Cruz MD LAB BLOOD ORDERABLES Fi nal Result Performing Organization Address [facility]/ZIP Co de Phone Number [facility] [address] [place] [address], [place] [phone] * (ABNORMAL) Complete blood count (08/03/2024 8:49 AM EST) Pathologist [facility] WBC 8.5 4.8 - 10.8 K/mcL LAB HEMETOLOGY METHOD 08/03/2024 9:28 AM EST [facility] RBC 2.90(L) 3.80 - 4.80 M/mcL LAB HEMETOLOGY METHOD 08/03/2024 9:28 AM [facility] Hemoglobin 7.7(L) 11.5 - 16.0 g/dL LAB HEMETOLOGY METHOD 08/03/2024 9:28 AM [facility] Hematocrit 24.6(L) 35.0 - 47.0 % LAB HEMETOLOGY METHOD 08/03/2024 9:28 AM [facility] MCV 84.2 79.0 - 98.0 FL LAB HEMETOLOGY METHOD 08/03/2024 9:28 AM [facility] MCH 26.4(L) 27.0 - 32.0 pcg LAB HEMETOLOGY METHOD 08/03/2024 9:28 AM [facility] MCHC 31.3(L) 32.0 - 37.0 g/dL LAB HEMETOLOGY METHOD 08/03/2024 9:28 AM [facility] RDW 21.8(H) 11.0 - 15.0 % LAB HEMETOLOGY METHOD 08/03/2024 9:28 AM [facility] Platelets 186 130 - 400 K/mcL LAB HEMETOLOGY METHOD 08/03/2024 9:28 AM [facility] MPV 10.5 7.0 - 11.0 FL LAB HEMETOLOGY METHOD 08/03/2024 9:28 AM [facility] NRBC 0.0 <1.0 % LAB HEMETOLOGY METHOD 08/03/2024 9:28 AM [facility] NRBC Absolute 0.00 <0.10 K/mcL LAB HEMETOLOGY METHOD 08/03/2024 9:28 AM [facility] Blood Venous blood specimen / Unknown Venipuncture / Unknown 08/03/2024 8:49 AM EST 08/03/2024 9:22 AM EST Steve Cruz MD LAB BLOOD ORDERABLES Fi nal Result [facility] [address] [place] [address], * (ABNORMAL) CBC auto differential (08/03/2024 6:01 AM EST) WBC 7.5 4.8 - 10.8 K/mcL LAB HEMETOLOGY METHOD 08/03/2024 7:49 AM [facility] RBC 2.90(L) 3.80 - 4.80 M/mcL LAB HEMETOLOGY METHOD 08/03/2024 7:49 AM [facility] Hemoglobin 7.8(L) 11.5 - 16.0 g/dL LAB HEMETOLOGY METHOD 08/03/2024 7:49 AM [facility] Hematocrit 24.7(L) 35.0 - 47.0 % LAB HEMETOLOGY METHOD 08/03/2024 7:49 AM [facility] MCV 85.8 79.0 - 98.0 FL LAB HEMETOLOGY METHOD 08/03/2024 7:49 AM [facility] MCH 27.1 27.0 - 32.0 pcg LAB HEMETOLOGY METHOD 08/03/2024 7:49 AM [facility] MCHC 31.6(L) 32.0 - 37.0 g/dL LAB HEMETOLOGY METHOD 08/03/2024 7:49 AM [facility] RDW 21.6(H) 11.0 - 15.0 % LAB HEMETOLOGY METHOD 08/03/2024 7:49 AM [facility] Platelets 188 130 - 400 K/mcL LAB HEMETOLOGY METHOD 08/03/2024 7:49 AM [facility] MPV 11.2(H) 7.0 - 11.0 FL LAB HEMETOLOGY METHOD 08/03/2024 7:49 AM [facility] NRBC 0.0 <1.0 % LAB HEMETOLOGY METHOD 08/03/2024 7:49 AM [facility] NRBC Absolute 0.00 <0.10 K/mcL LAB HEMETOLOGY METHOD 08/03/2024 7:49 AM [facility] Neutrophils Relative 77.2 % LAB HEMETOLOGY METHOD 08/03/2024 7:49 AM [facility] Lymphocytes Relative 12.8 % LAB HEMETOLOGY METHOD 08/03/2024 7:49 AM [facility] Monocytes Relative 8.0 % LAB HEMETOLOGY METHOD 08/03/2024 7:49 AM [facility] Eosinophils Relative 0.4 % LAB HEMETOLOGY METHOD 08/03/2024 7:49 AM [facility] Basophils Relative 0.1 % LAB HEMETOLOGY METHOD 08/03/2024 7:49 AM [facility] Immature Granulocytes Relative 1.5 % LAB HEMETOLOGY METHOD 08/03/2024 7:49 AM [facility] Neutrophils Absolute 5.78 1.50 - 7.00 K/mcL LAB HEMETOLOGY METHOD 08/03/2024 7:49 AM [facility] Lymphocytes Absolute 0.96(L) 1.00 - 5.00 K/mcL LAB HEMETOLOGY METHOD 08/03/2024 7:49 AM [facility] Monocytes Absolute 0.60 0.20 - 1.00 K/mcL LAB HEMETOLOGY METHOD 08/03/2024 7:49 AM [facility] Eosinophils Absolute 0.03 0.00 - 0.50 K/mcL LAB HEMETOLOGY METHOD 08/03/2024 7:49 AM [facility] Basophils Absolute 0.01 0.00 - 0.20 K/mcL LAB HEMETOLOGY METHOD 08/03/2024 7:49 AM EST [facility] Immature Granulocytes Absolute 0.11(H) 0.00 - 0.03 K/[facility] HEMETOLOGY METHOD 08/03/2024 7:49 AM EST [facility] Blood Venous blood specimen / Unknown Venipuncture / Unknown 08/03/2024 6:01 AM EST 08/03/2024 7:27 AM EST us Steve Cruz MD LAB BLOOD ORDERABLES Fi nal Result [facility] [address] [place] [address], [place] [phone] * Magnesium (08/03/2024 6:01 AM EST) Magnesium 2.1 1.9 - 2.6 mg/dL LAB CHEMISTRY METHOD 08/03/2024 8:11 AM EST [facility] Blood Venous blood specimen / Unknown Venipuncture / Unknown 08/03/2024 6:01 AM EST 08/03/2024 7:27 AM EST us Steve rCuz MD LAB BLOOD ORDERABLES Fi nal Result [facility] [address] [place] [address], [place] [phone] * Phosphorus (08/03/2024 6:01 AM EST) Phosphorus 4.3 2.5 - 4.5 mg/dL LAB CHEMISTRY METHOD 08/03/2024 8:11 AM EST [facility] Blood Venous blood specimen / Unknown Venipuncture / Unknown 08/03/2024 6:01 AM EST 08/03/2024 7:27 AM EST us Steve Cruz MD LAB BLOOD ORDERABLES Fi nal Result [facility] [address] [place] [address], [place] [phone] * (ABNORMAL) POCT Glucose, blood (08/02/2024 7:33 PM EST) Glucose POCT 241(H) 70 - 100 mg/dL 08/02/2024 7:34 PM EST [facility] Blood Capillary blood specimen / Unknown 08/02/2024 7:33 PM EST 08/02/2024 7:35 PM EST Steve Cruz MD LAB POINT OF CA RE TEST DOCKED DEVICE UNSOLICITED RESULTS Final Result Performing Organization Address [facility]/ZIP Co de Phone Number [facility] [address] [place] [address], [place] [phone] * (ABNORMAL) POCT Glucose, blood (08/02/2024 4:27 PM EST) Glucose POCT 212(H) 70 - 100 mg/dL 08/02/2024 4:29 PM EST [facility] Blood Capillary blood specimen / Unknown 08/02/2024 4:27 PM EST 08/02/2024 4:29 PM EST Steve Cruz MD LAB POINT OF CA RE TEST DOCKED DEVICE UNSOLICITED RESULTS Final Result [facility] [address] [place] [address], [place] [phone] * Type and screen (08/02/2024 3:04 PM EST) ABO Group O 08/02/2024 4:52 PM EST [facility] Rh Type Positive 08/02/2024 4:52 PM [facility] Antibody Screen Negative 08/02/2024 4:52 PM [facility] Blood Venous blood specimen / Unknown Venipuncture / Unknown 08/02/2024 3:04 PM EST 08/02/2024 4:07 PM EST Steve Cruz MD LAB BLOOD BANK TEST ORD ERABLES Final Result [facility] [address] [place] [address], [place] [phone] * Prepare RBC: 1 Units (08/02/2024 2:09 PM EST) [facility] Signature Product Code [id number] 08/02/2024 6:27 PM [facility] Unit Number [id number] 08/02/19 6:27 PM [facility] Crossmatch Compatible 08/02/2024 5:03 PM [facility] Dispense Status Transfused 08/02/2024 6:27 PM [facility] Unit ABO Rh OPOS 08/02/2024 6:27 PM [facility] Unit Expiration Date Time [id number] 08/02/2024 6:27 PM [facility] Unit Blood Type 5100 08/02/2024 6:27 PM [facility] Blood Venous blood specimen / Unknown 08/02/2024 2:09 PM EST 08/02/2024 4:07 PM EST Steve Cruz MD BLOOD BANK PRODUCT ORDE RABLES Final Result [facility] [address] [place] [address], [place] [phone] * (ABNORMAL) POCT Glucose, blood (08/02/2024 11:26 AM EST) Glucose POCT 153(H) 70 - 100 mg/dL 08/02/2024 11:41 AM EST [facility] Blood Capillary blood specimen / Unknown 08/02/2024 11:26 AM EST 08/02/2024 11:43 AM EST Steve Cruz MD LAB POINT OF CA RE TEST DOCKED DEVICE UNSOLICITED RESULTS Final Result [facility] [address] [place] [address], [place] [phone] * POCT Glucose, blood (08/02/2024 7:46 AM EST) Glucose POCT 90 70 - 100 mg/dL 08/02/2024 7:46 AM EST [facility] Blood Capillary blood specimen / Unknown 08/02/2024 7:46 AM EST 08/02/2024 7:48 AM EST Steve Cruz MD LAB POINT OF CA RE TEST DOCKED DEVICE UNSOLICITED RESULTS Final Result [facility] [address] [place] [address], [place] [phone] * (ABNORMAL) CBC - Every 3 Days (08/02/2024 6:06 AM EST) WBC 8.0 4.8 - 10.8 K/[facility] HEMETOLOGY METHOD 08/02/2024 7:45 AM EST [facility] RBC 2.70(L) 3.80 - 4.80 M/[facility] HEMETOLOGY METHOD 08/02/2024 7:45 AM EST [facility] Hemoglobin 7.0(L) 11.5 - 16.0 g/dL LAB HEMETOLOGY METHOD 08/02/2024 7:45 AM [facility] Hematocrit 22.9(L) 35.0 - 47.0 % LAB HEMETOLOGY METHOD 08/02/2024 7:45 AM [facility] MCV 84.2 79.0 - 98.0 FL LAB HEMETOLOGY METHOD 08/02/2024 7:45 AM [facility] MCH 25.7(L) 27.0 - 32.0 pcg LAB HEMETOLOGY METHOD 08/02/2024 7:45 AM [facility] MCHC 30.6(L) 32.0 - 37.0 g/dL LAB HEMETOLOGY METHOD 08/02/2024 7:45 AM [facility] RDW 23.4(H) 11.0 - 15.0 % LAB HEMETOLOGY METHOD 08/02/2024 7:45 AM [facility] Platelets 205 130 - 400 K/mcL LAB HEMETOLOGY METHOD 08/02/2024 7:45 AM [facility] MPV 11.0 7.0 - 11.0 FL LAB HEMETOLOGY METHOD 08/02/2024 7:45 AM [facility] NRBC 0.0 <1.0 % LAB HEMETOLOGY METHOD 08/02/2024 7:45 AM [facility] NRBC Absolute 0.00 <0.10 K/mcL LAB HEMETOLOGY METHOD 08/02/2024 7:45 AM [facility] Blood Venous blood specimen / Unknown Venipuncture / Unknown 08/02/2024 6:06 AM EST 08/02/2024 7:23 AM EST [facility] BLOOD ORDERABLES Final R esult [facility] [address] [place] [address], [place] [phone] * (ABNORMAL) POCT Glucose, blood (08/01/2024 7:43 PM EST) Glucose POCT 209(H) 70 - 100 mg/dL 08/01/2024 7:44 PM EST [facility] Blood Capillary blood specimen / Unknown 08/01/2024 7:43 PM EST 08/01/2024 7:44 PM EST us Steve Cruz MD LAB POINT OF CA RE TEST DOCKED DEVICE UNSOLICITED RESULTS Final Result [facility] [address] [place] [address], [place] [phone] * (ABNORMAL) POCT Glucose, blood (08/01/2024 5:20 PM EST) Glucose POCT 168(H) 70 - 100 mg/dL 08/01/2024 5:21 PM EST [facility] Blood Capillary blood specimen / Unknown 08/01/2024 5:20 PM EST 08/01/2024 5:22 PM EST us Steve Cruz MD LAB POINT OF CA RE TEST DOCKED DEVICE UNSOLICITED RESULTS Final Result [facility] [address] [place] [address], [place] [phone] * (ABNORMAL) POCT Glucose, blood (08/01/2024 11:03 AM EST) Glucose POCT 149(H) 70 - 100 mg/dL 08/01/2024 11:03 AM EST [facility] Blood Capillary blood specimen / Unknown 08/01/2024 11:03 AM EST 08/01/2024 11:04 AM EST us Steve Cruz MD LAB POINT OF CA RE TEST DOCKED DEVICE UNSOLICITED RESULTS Final Result Performing Organization Address [facility] Co de Phone Number [facility] [address] [place] [address], [place] [phone] * (ABNORMAL) POCT Glucose, blood (08/01/2024 8:59 AM EST) Glucose POCT 128(H) 70 - 100 mg/dL 08/01/2024 9:01 AM EST [facility] Blood Capillary blood specimen / Unknown 08/01/2024 8:59 AM EST 08/01/2024 9:02 AM EST us Steve Cruz MD LAB POINT OF CA RE TEST DOCKED DEVICE UNSOLICITED RESULTS Final Result Performing Organization Address [facility] Co de Phone Number [facility] [address] [place] [address], [place] [phone] * POCT Glucose, blood (08/01/2024 7:34 AM EST) [facility] Glucose POCT 75 70 - 100 mg/dL 08/01/2024 7:35 AM EST [facility] Blood Capillary blood specimen / Unknown 08/01/2024 7:34 AM EST 08/01/2024 7:36 AM EST us Steve Cruz MD LAB POINT OF CA RE TEST DOCKED DEVICE UNSOLICITED RESULTS Final Result Performing Organization Address [facility] Co de Phone Number [facility] [address] [place] [address], [place] [phone] * (ABNORMAL) CBC auto differential (08/01/2024 6:59 AM EST) WBC 9.2 4.8 - 10.8 K/mcL LAB HEMETOLOGY METHOD 08/01/2024 8:20 AM [facility] RBC 3.00(L) 3.80 - 4.80 M/mcL LAB HEMETOLOGY METHOD 08/01/2024 8:20 AM [facility] Hemoglobin 7.7(L) 11.5 - 16.0 g/dL LAB HEMETOLOGY METHOD 08/01/2024 8:20 AM [facility] Hematocrit 25.2(L) 35.0 - 47.0 % LAB HEMETOLOGY METHOD 08/01/2024 8:20 AM [facility] MCV 84.6 79.0 - 98.0 FL LAB HEMETOLOGY METHOD 08/01/2024 8:20 AM [facility] MCH 25.8(L) 27.0 - 32.0 pcg LAB HEMETOLOGY METHOD 08/01/2024 8:20 AM [facility] MCHC 30.6(L) 32.0 - 37.0 g/dL LAB HEMETOLOGY METHOD 08/01/2024 8:20 AM [facility] RDW 23.5(H) 11.0 - 15.0 % LAB HEMETOLOGY METHOD 08/01/2024 8:20 AM [facility] Platelets 220 130 - 400 K/mcL LAB HEMETOLOGY METHOD 08/01/2024 8:20 AM [facility] MPV 11.3(H) 7.0 - 11.0 FL LAB HEMETOLOGY METHOD 08/01/2024 8:20 AM [facility] NRBC 0.0 <1.0 % LAB HEMETOLOGY METHOD 08/01/2024 8:20 AM [facility] NRBC Absolute 0.00 <0.10 K/mcL LAB HEMETOLOGY METHOD 08/01/2024 8:20 AM [facility] Neutrophils Relative 77.4 % LAB HEMETOLOGY METHOD 08/01/2024 8:20 AM [facility] Lymphocytes Relative 12.6 % LAB HEMETOLOGY METHOD 08/01/2024 8:20 AM [facility] Monocytes Relative 7.6 % LAB HEMETOLOGY METHOD 08/01/2024 8:20 AM [facility] Eosinophils Relative 0.9 % LAB HEMETOLOGY METHOD 08/01/2024 8:20 AM [facility] Basophils Relative 0.1 % LAB HEMETOLOGY METHOD 08/01/2024 8:20 AM [facility] Immature Granulocytes Relative 1.4 % LAB HEMETOLOGY METHOD 08/01/2024 8:20 AM [facility] Neutrophils Absolute 7.09(H) 1.50 - 7.00 K/mcL LAB HEMETOLOGY METHOD 08/01/2024 8:20 AM [facility] Lymphocytes Absolute 1.16 1.00 - 5.00 K/mcL LAB HEMETOLOGY METHOD 08/01/2024 8:20 AM [facility] Monocytes Absolute 0.70 0.20 - 1.00 K/mcL LAB HEMETOLOGY METHOD 08/01/2024 8:20 AM [facility] Eosinophils Absolute 0.08 0.00 - 0.50 K/mcL LAB HEMETOLOGY METHOD 08/01/2024 8:20 AM [facility] Basophils Absolute 0.01 0.00 - 0.20 K/mcL LAB HEMETOLOGY METHOD 08/01/2024 8:20 AM [facility] Immature Granulocytes Absolute 0.13(H) 0.00 - 0.03 K/mcL LAB HEMETOLOGY METHOD 08/01/2024 8:20 AM [facility] Blood Venous blood specimen / Unknown Existing Catheter / Unknown 08/01/2024 6:59 AM EST 08/01/2024 8:07 AM EST us Jonny Mathur MD LAB BLOOD ORDERABLES Final Re sult [facility] [address] [place] [address], [place] [phone] * (ABNORMAL) Basic metabolic panel (08/01/2024 6:59 AM EST) Sodium 132(L) 133 - 145 mmol/L LAB CHEMISTRY METHOD 08/01/2024 8:41 AM EST [facility] Potassium 4.7 3.5 - 5.5 mmol/L LAB CHEMISTRY METHOD 08/01/2024 8:41 AM [facility] Chloride 96 96 - 110 mmol/L LAB CHEMISTRY METHOD 08/01/2024 8:41 AM [facility] CO2 30 21 - 32 mmol/L LAB CHEMISTRY METHOD 08/01/2024 8:41 AM EST [facility] Anion Gap 6 3 - 11 LAB CHEMISTRY METHOD 08/01/2024 8:41 AM [facility] Glucose 74 70 - 100 mg/dL LAB CHEMISTRY METHOD 08/01/2024 8:41 AM [facility] BUN 71(H) 5 - 25 mg/dL LAB CHEMISTRY METHOD 08/01/2024 8:41 AM [facility] Creatinine 4.62(H) 0.50 - 1.10 mg/dL LAB CHEMISTRY METHOD 08/01/2024 8:41 AM [facility] eGFR 9(L) >=60 mL/min/1. 73m2 LAB CHEMISTRY METHOD 08/01/2024 8:41 AM [facility] Comment:Calculation based on the??Chronic Kidney Disease Epidemiology Collaboration (CKD-EPI) equation refit??without adjustment for race. BUN/Creatinine Ratio 15.4 LAB CHEMISTRY METHOD 08/01/2024 8:41 AM [facility] Calcium 8.6 8.5 - 10.5 mg/dL LAB CHEMISTRY METHOD 08/01/2024 8:41 AM EST [facility] Blood Venous blood specimen / Unknown Existing Catheter / Unknown 08/01/2024 6:59 AM EST 08/01/2024 8:07 AM EST us Jonny Mathur MD LAB BLOOD ORDERABLES Final Re sult Performing Organization Address City/[facility]/ZIP Co de Phone Number [facility] [address] [place] [address], [place] [phone] * (ABNORMAL) POCT Glucose, blood (07/31/2024 8:23 PM EST) Glucose POCT 279(H) 70 - 100 mg/dL 07/31/2024 8:24 PM EST [facility] POCT Comment RN Notified 07/31/2024 8:24 PM EST [facility] Blood Capillary blood specimen / Unknown 07/31/2024 8:23 PM EST 07/31/2024 8:25 PM EST us Jonny Mathur MD LAB POINT OF CARE TE ST DOCKED DEVICE UNSOLICITED RESULTS Final Result Performing Organization Address [facility]/ZIP Co de Phone Number [facility] [address] [place] [address], [place] [phone] * (ABNORMAL) POCT Glucose, blood (07/31/2024 4:20 PM EST) Glucose POCT 241(H) 70 - 100 mg/dL 07/31/2024 4:21 PM EST [facility] Blood Capillary blood specimen / Unknown 07/31/2024 4:20 PM EST 07/31/2024 4:22 PM EST us Jonny Mathur MD LAB POINT OF CARE TE ST DOCKED DEVICE UNSOLICITED RESULTS Final Result Performing Organization Address [facility]/ZIP Co de Phone Number [facility] [address] [place] [address], [place] [phone] * (ABNORMAL) Hemoglobin and hematocrit (07/31/2024 2:30 [...] ORDERABLES Final Re sult Performing Organization Address City/[facility]/ZIP Co de Phone Number [facility] [address] [place] [address], [place] [phone] * (ABNORMAL) POCT Glucose, blood (07/31/2024 11:22 AM EST) Glucose POCT 132(H) 70 - 100 mg/dL 07/31/2024 11:24 AM EST [facility] Blood Capillary blood specimen / Unknown 07/31/2024 11:22 AM EST 07/31/2024 11:25 AM EST us Jonny Mathur MD LAB POINT OF CARE TE ST DOCKED DEVICE UNSOLICITED RESULTS Final Result Performing Organization Address [facility]/ZIP Co de Phone Number [facility] [address] [place] [address], [place] [phone] * (ABNORMAL) POCT Glucose, blood (07/31/2024 8:06 AM EST) [facility] Glucose POCT 112(H) 70 - 100 mg/dL 07/31/2024 8:06 AM [facility] Blood Capillary blood specimen / Unknown 07/31/2024 8:06 AM EST 07/31/2024 8:08 AM EST Jonny Mathur MD LAB POINT OF CARE TE ST DOCKED DEVICE UNSOLICITED RESULTS Final Result [facility] [address] [place] [address], [place] [phone] * (ABNORMAL) CBC auto differential (07/31/2024 5:43 AM EST) [facility] WBC 7.4 4.8 - 10.8 K/mcL LAB HEMETOLOGY METHOD 07/31/2024 7:02 AM [facility] RBC 2.60(L) 3.80 - 4.80 M/mcL LAB HEMETOLOGY METHOD 07/31/2024 7:02 AM [facility] Hemoglobin 6.7(L) 11.5 - 16.0 g/dL LAB HEMETOLOGY METHOD 07/31/2024 7:02 AM [facility] Hematocrit 22.0(L) 35.0 - 47.0 % LAB HEMETOLOGY METHOD 07/31/2024 7:02 AM [facility] MCV 84.0 79.0 - 98.0 FL LAB HEMETOLOGY METHOD 07/31/2024 7:02 AM [facility] MCH 25.6(L) 27.0 - 32.0 pcg LAB HEMETOLOGY METHOD 07/31/2024 7:02 AM [facility] MCHC 30.5(L) 32.0 - 37.0 g/dL LAB HEMETOLOGY METHOD 07/31/2024 7:02 AM [facility] RDW 23.1(H) 11.0 - 15.0 % LAB HEMETOLOGY METHOD 07/31/2024 7:02 AM [facility] Platelets 183 130 - 400 K/mcL LAB HEMETOLOGY METHOD 07/31/2024 7:02 AM [facility] MPV 11.1(H) 7.0 - 11.0 FL LAB HEMETOLOGY METHOD 07/31/2024 7:02 AM [facility] NRBC 0.0 <1.0 % LAB HEMETOLOGY METHOD 07/31/2024 7:02 AM [facility] NRBC Absolute 0.00 <0.10 K/mcL LAB HEMETOLOGY METHOD 07/31/2024 7:02 AM [facility] Neutrophils Relative 77.7 % LAB HEMETOLOGY METHOD 07/31/2024 7:02 AM [facility] Lymphocytes Relative 11.7 % LAB HEMETOLOGY METHOD 07/31/2024 7:02 AM [facility] Monocytes Relative 8.6 % LAB HEMETOLOGY METHOD 07/31/2024 7:02 AM [facility] Eosinophils Relative 0.3 % LAB HEMETOLOGY METHOD 07/31/2024 7:02 AM [facility] Basophils Relative 0.1 % LAB HEMETOLOGY METHOD 07/31/2024 7:02 AM [facility] Immature Granulocytes Relative 1.6 % LAB HEMETOLOGY METHOD 07/31/2024 7:02 AM [facility] Neutrophils Absolute 5.77 1.50 - 7.00 K/mcL LAB HEMETOLOGY METHOD 07/31/2024 7:02 AM [facility] Lymphocytes Absolute 0.87(L) 1.00 - 5.00 K/mcL LAB HEMETOLOGY METHOD 07/31/2024 7:02 AM [facility] Monocytes Absolute 0.64 0.20 - 1.00 K/mcL LAB HEMETOLOGY METHOD 07/31/2024 7:02 AM EST [facility] Eosinophils Absolute 0.02 0.00 - 0.50 K/[facility] HEMETOLOGY METHOD 07/31/2024 7:02 AM EST [facility] Basophils Absolute 0.01 0.00 - 0.20 K[facility] HEMETOLOGY METHOD 07/31/2024 7:02 AM [facility] Immature Granulocytes Absolute 0.12(H) 0.00 - 0.03 K[facility] HEMETOLOGY METHOD 07/31/2024 7:02 AM [facility] Blood Venous blood specimen / Unknown Existing Catheter / Unknown 07/31/2024 5:43 AM EST 07/31/2024 6:34 AM EST Jonny Mathur MD LAB BLOOD ORDERABLES Final Re sult [facility] [address] [place] [address], [place] [phone] * (ABNORMAL) Basic metabolic panel (07/31/2024 5:43 AM EST) Sodium 132(L) 133 - 145 mmol/L LAB CHEMISTRY METHOD 07/31/2024 7:22 AM [facility] Potassium 4.4 3.5 - 5.5 mmol/L LAB CHEMISTRY METHOD 07/31/2024 7:22 AM [facility] Chloride 94(L) 96 - 110 mmol/L LAB CHEMISTRY METHOD 07/31/2024 7:22 AM [facility] CO2 31 21 - 32 mmol/L LAB CHEMISTRY METHOD 07/31/2024 7:22 AM [facility] Anion Gap 7 3 - 11 LAB CHEMISTRY METHOD 07/31/2024 7:22 AM [facility] Glucose 123(H) 70 - 100 mg/dL LAB CHEMISTRY METHOD 07/31/2024 7:22 AM EST [facility] BUN 54(H) 5 - 25 mg/dL LAB CHEMISTRY METHOD 07/31/2024 7:22 AM [facility] Creatinine 3.73(H) 0.50 - 1.10 mg/dL LAB CHEMISTRY METHOD 07/31/2024 7:22 AM EST [facility] eGFR 12(L) >=60 mL/min/1. 73m2 LAB CHEMISTRY METHOD 07/31/2024 7:22 AM EST [facility] [facility] Comment:Calculation based on the??Chronic Kidney Disease Epidemiology Collaboration (CKD-EPI) equation refit??without adjustment for race. BUN/Creatinine Ratio 14.5 LAB CHEMISTRY METHOD 07/31/2024 7:22 AM [facility] Calcium 8.3(L) 8.5 - 10.5 mg/dL LAB CHEMISTRY METHOD 07/31/2024 7:22 AM [facility] Blood Venous blood specimen / Unknown Existing Catheter / Unknown 07/31/2024 5:43 AM EST 07/31/2024 6:36 AM EST us Jonny Mathur MD LAB BLOOD ORDERABLES Final Re sult Performing Organization Address [facility] de Phone Number [facility] [address] [place] [address], * (ABNORMAL) POCT Glucose, blood (07/30/2024 7:51 PM EST) Glucose POCT 315(H) 70 - 100 mg/dL 07/30/2024 7:51 PM EST [facility] Blood Capillary blood specimen / Unknown 07/30/2024 7:51 PM EST 07/30/2024 7:52 PM EST us Jonny Mathur MD LAB POINT OF CARE TE ST DOCKED DEVICE UNSOLICITED RESULTS Final Result Performing Organization Address [facility]/ZIP Co de Phone Number [facility] [address] [place] [address], [place] [phone] * (ABNORMAL) POCT Glucose, blood (07/30/2024 5:02 PM EST) [facility] Glucose POCT 299(H) 70 - 100 mg/dL 07/30/2024 5:03 PM EST [facility] Blood Capillary blood specimen / Unknown 07/30/2024 5:02 PM EST 07/30/2024 5:04 PM EST us Jonny Mathur MD LAB POINT OF CARE TE ST DOCKED DEVICE UNSOLICITED RESULTS Final Result Performing Organization Address [facility]/ZIP Co de Phone Number [facility] [address] [place] [address], [place] [phone] * (ABNORMAL) Hemoglobin and hematocrit (07/30/2024 3:32 PM EST) [facility] Hemoglobin 7.1(L) 11.5 - 16.0 g/dL LAB HEMETOLOGY METHOD 07/30/2024 3:53 PM EST [facility] Hematocrit 23.1(L) 35.0 - 47.0 % LAB HEMETOLOGY METHOD 07/30/2024 3:53 PM EST [facility] Blood Venous blood specimen / Unknown Venipuncture / Unknown 07/30/2024 3:32 PM EST 07/30/2024 3:46 PM EST us Jonny Mathur MD LAB BLOOD ORDERABLES Final Re sult Performing Organization Address [facility]/ZIP Co de Phone Number [facility] [address] [place] [address], [place] [phone] * (ABNORMAL) Hepatic Function Panel - STAT (07/30/2024 11:52 AM EST) [facility] Total Protein 5.2(L) 6.0 - 8.0 g/dL LAB CHEMISTRY METHOD 07/30/2024 12:56 PM [facility] Albumin 2.4(L) 3.2 - 5.0 g/dL LAB CHEMISTRY METHOD 07/30/2024 12:56 PM [facility] Total Bilirubin 0.4 0.0 - 1.4 mg/dL LAB CHEMISTRY METHOD 07/30/2024 12:56 PM [facility] Bilirubin, Direct 0.2 0.0 - 0.3 mg/dL LAB CHEMISTRY METHOD 07/30/2024 12:56 PM [facility] Bilirubin, Indirect 0.2 0.0 - 1.1 mg/dL LAB CHEMISTRY METHOD 07/30/2024 12:56 PM [facility] ALT (SGPT) 17 10 - 60 unit/L LAB CHEMISTRY METHOD 07/30/2024 12:56 PM [facility] AST (SGOT) 12 10 - 42 unit/L LAB CHEMISTRY METHOD 07/30/2024 12:56 PM [facility] Alkaline Phosphatase 80 42 - 121 unit/L LAB CHEMISTRY METHOD 07/30/2024 12:56 PM [facility] Blood Venous blood specimen / Unknown Venipuncture / Unknown 07/30/2024 11:52 AM EST 07/30/2024 12:28 PM EST us Jonny Mathur MD LAB BLOOD ORDERABLES Final Re sult [facility] [address] [place] [address], * (ABNORMAL) POCT Glucose, blood (07/30/2024 11:22 AM EST) Pathologist [facility] Glucose POCT 182(H) 70 - 100 mg/dL 07/30/2024 11:25 AM [facility] Blood Capillary blood specimen / Unknown 07/30/2024 11:22 AM EST 07/30/2024 11:25 AM EST us Jonny Mathur MD LAB POINT OF CARE TE ST DOCKED DEVICE UNSOLICITED RESULTS Final Result Performing Organization Address [facility]/ZIP Co de Phone Number [facility] [address] [place] [address], [place] [phone] * (ABNORMAL) POCT Glucose, blood (07/30/2024 7:47 AM EST) Pathologist [facility] Glucose POCT 173(H) 70 - 100 mg/dL 07/30/2024 7:48 AM [facility] Blood Capillary blood specimen / Unknown 07/30/2024 7:47 AM EST 07/30/2024 7:49 AM EST us Jonny Mathur MD LAB POINT OF CARE TE ST DOCKED DEVICE UNSOLICITED RESULTS Final Result Performing Organization Address [facility]/ZIP Co de Phone Number [facility] [address] [place] [address], [place] [phone] * (ABNORMAL) CBC - Every 3 Days (07/30/2024 6:10 AM EST) WBC 8.0 4.8 - 10.8 K/[facility] LAB HEMETOLOGY METHOD 07/30/2024 6:55 AM EST [facility] RBC 2.90(L) 3.80 - 4.80 M/[facility] LAB HEMETOLOGY METHOD 07/30/2024 6:55 AM EST [facility] Hemoglobin 7.2(L) 11.5 - 16.0 g/dL LAB HEMETOLOGY METHOD 07/30/2024 6:55 AM EST [facility] Hematocrit 23.9(L) 35.0 - 47.0 % LAB HEMETOLOGY METHOD 07/30/2024 6:55 AM EST [facility] MCV 83.6 79.0 - 98.0 FL LAB HEMETOLOGY METHOD 07/30/2024 6:55 AM EST [facility] MCH 25.2(L) 27.0 - 32.0 pcg LAB HEMETOLOGY METHOD 07/30/2024 6:55 AM [facility] MCHC 30.1(L) 32.0 - 37.0 g/dL LAB HEMETOLOGY METHOD 07/30/2024 6:55 AM EST [facility] RDW 22.9(H) 11.0 - 15.0 % LAB HEMETOLOGY METHOD 07/30/2024 6:55 AM [facility] Platelets 176 130 - 400 K/mcL LAB HEMETOLOGY METHOD 07/30/2024 6:55 AM [facility] MPV 10.7 7.0 - 11.0 FL LAB HEMETOLOGY METHOD 07/30/2024 6:55 AM EST [facility] NRBC 0.0 <1.0 % LAB HEMETOLOGY METHOD 07/30/2024 6:55 AM [facility] NRBC Absolute 0.00 <0.10 K/mcL LAB HEMETOLOGY METHOD 07/30/2024 6:55 AM [facility] Blood Venous blood specimen / Unknown Venipuncture / Unknown 07/30/2024 6:10 AM EST 07/30/2024 6:25 AM EST us [facility] LAB BLOOD ORDERABLES Final R esult [facility] [address] [place] [address], * (ABNORMAL) Heparin and low molecular weight [...] Re sult [facility] [address] [place] [address], [place] [phone] * (ABNORMAL) POCT Glucose, blood (07/29/2024 8:11 PM EST) Glucose POCT 321(H) 70 - 100 mg/dL 07/29/2024 8:19 PM EST [facility] Blood Capillary blood specimen / Unknown 07/29/2024 8:11 PM EST 07/29/2024 8:20 PM EST us Jonny Mathur MD LAB POINT OF CARE TE ST DOCKED DEVICE UNSOLICITED RESULTS Final Result [facility] [address] [place] [address], [place] [phone] * (ABNORMAL) POCT Glucose, blood (07/29/2024 4:19 PM EST) Glucose POCT 267(H) 70 - 100 mg/dL 07/29/2024 4:21 PM EST [facility] Blood Capillary blood specimen / Unknown 07/29/2024 4:19 PM EST 07/29/2024 4:22 PM EST Jonny Mathur MD LAB POINT OF CARE TE ST DOCKED DEVICE UNSOLICITED RESULTS Final Result Performing Organization Address City/[facility]/ZIP Co de Phone Number [facility] [address] [place] [address], [place] [phone] * Hepatitis B surface antigen with reflex to confirmation (07/29/2024 11:51 AM EST) Hepatitis B Surface Ag Negative Negative LAB CHEMISTRY METHOD 07/29/2024 3:12 PM EST [facility] Blood Venous blood specimen / Unknown Venipuncture / Unknown 07/29/2024 11:51 AM EST 07/29/2024 1:08 PM EST Narrative [facility] - 07/29/2024 3:12 PM EST Over the counter supplements containing high doses of biotin may interfere with this assay. ??If interference is suspected, patients shoud be retested after refraining from biotin supplements for 72 hours. us Jonny Mathur MD LAB BLOOD ORDERABLES Final Re sult Performing Organization Address [facility]/ZIP Co de Phone Number [facility] [address] [place] [address], [place] [phone] * (ABNORMAL) POCT Glucose, blood (07/29/2024 11:23 AM EST) [facility] Glucose POCT 108(H) 70 - 100 mg/dL 07/29/2024 11:30 AM EST [facility] Blood Capillary blood specimen / Unknown 07/29/2024 11:23 AM EST 07/29/2024 11:31 AM EST us Jonny Mathur MD LAB POINT OF CARE TE ST DOCKED DEVICE UNSOLICITED RESULTS Final Result Performing Organization Address [facility]/ZIP Co de Phone Number [facility] [address] [place] [address], [place] [phone] * Heparin and low molecular weight anti Xa level (07/29/2024 5:54 AM EST) [facility] Heparin Anti-Xa 0.61 0.30 - 0.70 I Unit/mL LAB COAGULATION METHOD 07/29/2024 6:54 AM [facility] Blood Venous blood specimen / Unknown Venipuncture / Unknown 07/29/2024 5:54 AM EST 07/29/2024 6:34 AM EST [facility] - 07/29/2024 6:54 AM EST Therapeutic range listed is for Unfractionated Heparin. LMW Heparin therapeutic range: 0.50-1.20 IU/mL us Jonny Mathur MD LAB BLOOD ORDERABLES Final Re sult [facility] [address] [place] [address], [place] [phone] * (ABNORMAL) CBC auto differential (07/29/2024 5:54 AM EST) [facility] WBC 7.3 4.8 - 10.8 K/mcL LAB HEMETOLOGY METHOD 07/29/2024 6:55 AM [facility] RBC 2.60(L) 3.80 - 4.80 M/mcL LAB HEMETOLOGY METHOD 07/29/2024 6:55 AM [facility] Hemoglobin 6.7(L) 11.5 - 16.0 g/dL LAB HEMETOLOGY METHOD 07/29/2024 6:55 AM [facility] Hematocrit 21.7(L) 35.0 - 47.0 % LAB HEMETOLOGY METHOD 07/29/2024 6:55 AM [facility] MCV 82.8 79.0 - 98.0 FL LAB HEMETOLOGY METHOD 07/29/2024 6:55 AM [facility] MCH 25.6(L) 27.0 - 32.0 pcg LAB HEMETOLOGY METHOD 07/29/2024 6:55 AM [facility] MCHC 30.9(L) 32.0 - 37.0 g/dL LAB HEMETOLOGY METHOD 07/29/2024 6:55 AM [facility] RDW 23.1(H) 11.0 - 15.0 % LAB HEMETOLOGY METHOD 07/29/2024 6:55 AM [facility] Platelets 146 130 - 400 K/mcL LAB HEMETOLOGY METHOD 07/29/2024 6:55 AM [facility] MPV 10.7 7.0 - 11.0 FL LAB HEMETOLOGY METHOD 07/29/2024 6:55 AM [facility] NRBC 0.0 <1.0 % LAB HEMETOLOGY METHOD 07/29/2024 6:55 AM [facility] NRBC Absolute 0.00 <0.10 K/mcL LAB HEMETOLOGY METHOD 07/29/2024 6:55 AM [facility] Neutrophils Relative 83.4 % LAB HEMETOLOGY METHOD 07/29/2024 6:55 AM [facility] Lymphocytes Relative 8.2 % LAB HEMETOLOGY METHOD 07/29/2024 6:55 AM [facility] Monocytes Relative 6.1 % LAB HEMETOLOGY METHOD 07/29/2024 6:55 AM [facility] Eosinophils Relative 0.3 % LAB HEMETOLOGY METHOD 07/29/2024 6:55 AM [facility] Basophils Relative 0.1 % LAB HEMETOLOGY METHOD 07/29/2024 6:55 AM [facility] Immature Granulocytes Relative 1.9 % LAB HEMETOLOGY METHOD 07/29/2024 6:55 AM [facility] Neutrophils Absolute 6.11 1.50 - 7.00 K/mcL LAB HEMETOLOGY METHOD 07/29/2024 6:55 AM EST [facility] Lymphocytes Absolute 0.60(L) 1.00 - 5.00 K/[facility] LAB HEMETOLOGY METHOD 07/29/2024 6:55 AM EST [facility] Monocytes Absolute 0.45 0.20 - 1.00 K/[facility] LAB HEMETOLOGY METHOD 07/29/2024 6:55 AM EST [facility] Eosinophils Absolute 0.02 0.00 - 0.50 K/[facility] LAB HEMETOLOGY METHOD 07/29/2024 6:55 AM EST [facility] Basophils Absolute 0.01 0.00 - 0.20 K/[facility] LAB HEMETOLOGY METHOD 07/29/2024 6:55 AM [facility] Immature Granulocytes Absolute 0.14(H) 0.00 - 0.03 K/[facility] LAB HEMETOLOGY METHOD 07/29/2024 6:55 AM [facility] Blood Venous blood specimen / Unknown Venipuncture / Unknown 07/29/2024 5:54 AM EST 07/29/2024 6:34 AM EST us Jonny Mathur MD LAB BLOOD ORDERABLES Final Re sult [facility] [address] [place] [address], * (ABNORMAL) Basic metabolic panel (07/29/2024 5:54 AM EST) Sodium 131(L) 133 - 145 mmol/L LAB CHEMISTRY METHOD 07/29/2024 7:22 AM [facility] Potassium 4.2 3.5 - 5.5 mmol/L LAB CHEMISTRY METHOD 07/29/2024 7:22 AM [facility] Chloride 95(L) 96 - 110 mmol/L LAB CHEMISTRY METHOD 07/29/2024 7:22 AM [facility] CO2 31 21 - 32 mmol/L LAB CHEMISTRY METHOD 07/29/2024 7:22 AM [facility] Anion Gap 5 3 - 11 LAB CHEMISTRY METHOD 07/29/2024 7:22 AM [facility] Glucose 180(H) 70 - 100 mg/dL LAB CHEMISTRY METHOD 07/29/2024 7:22 AM [facility] BUN 49(H) 5 - 25 mg/dL LAB CHEMISTRY METHOD 07/29/2024 7:22 AM [facility] Creatinine 3.73(H) 0.50 - 1.10 mg/dL LAB CHEMISTRY METHOD 07/29/2024 7:22 AM [facility] eGFR 12(L) >=60 mL/min/1. 73m2 LAB CHEMISTRY METHOD 07/29/2024 7:22 AM [facility] Comment:Calculation based on the??Chronic Kidney Disease Epidemiology Collaboration (CKD-EPI) equation refit??without adjustment for race. BUN/Creatinine Ratio 13.1 LAB CHEMISTRY METHOD 07/29/2024 7:22 AM [facility] Calcium 7.8(L) 8.5 - 10.5 mg/dL LAB CHEMISTRY METHOD 07/29/2024 7:22 AM [facility] Blood Venous blood specimen / Unknown Venipuncture / Unknown 07/29/2024 5:54 AM EST 07/29/2024 6:34 AM EST us Jonny Mathur MD LAB BLOOD ORDERABLES Final Re sult [facility] [address] [place] [address], * Heparin and low molecular weight anti Xa level (07/28/2024 11:42 PM EST) Heparin Anti-Xa 0.65 0.30 - 0.70 I Unit/mL LAB COAGULATION METHOD 07/29/2024 12:10 AM EST [facility] Blood Venous blood specimen / Unknown Venipuncture / Unknown 07/28/2024 11:42 PM EST 07/28/2024 11:52 PM EST Narrative [facility] - 07/29/2024 12:10 AM EST Therapeutic range listed is for Unfractionated Heparin. LMW Heparin therapeutic range: 0.50-1.20 IU/mL us Jonny Mathur MD LAB BLOOD ORDERABLES Final Re sult [facility] [address] [place] [address], [place] [phone] * (ABNORMAL) Heparin and low molecular weight anti Xa level (07/28/2024 7:46 PM EST) Heparin Anti-Xa 1.05(H) 0.30 - 0.70 I Unit/mL LAB COAGULATION METHOD 07/28/2024 9:19 PM EST [facility] Blood Venous blood specimen / Unknown Venipuncture / Unknown 07/28/2024 7:46 PM EST 07/28/2024 9:09 PM EST Narrative [facility] - 07/28/2024 9:19 PM EST Therapeutic range listed is for Unfractionated Heparin. LMW Heparin therapeutic range: 0.50-1.20 IU/mL us Jonny Mathur MD LAB BLOOD ORDERABLES Final Re sult [facility] [address] [place] [address], [place] [phone] * (ABNORMAL) POCT Glucose, blood (07/28/2024 7:41 PM EST) Glucose POCT 269(H) 70 - 100 mg/dL 07/28/2024 7:41 PM EST [facility] Blood Capillary blood specimen / Unknown 07/28/2024 7:41 PM EST 07/28/2024 7:43 PM EST us Jonny Mathur MD LAB POINT OF CARE TE ST DOCKED DEVICE UNSOLICITED RESULTS Final Result Performing Organization Address [facility]/ZIP Co de Phone Number [facility] [address] [place] [address], [place] [phone] * (ABNORMAL) POCT Glucose, blood (07/28/2024 4:54 PM EST) [facility] Glucose POCT 258(H) 70 - 100 mg/dL 07/28/2024 4:56 PM EST [facility] Blood Capillary blood specimen / Unknown 07/28/2024 4:54 PM EST 07/28/2024 4:57 PM EST us Jonny Mathur MD LAB POINT OF CARE TE ST DOCKED DEVICE UNSOLICITED RESULTS Final Result Performing Organization Address [facility] Phone Number [facility] [address] [place] [address], [place] [phone] * Hepatitis B core antibody IgM (07/28/2024 12:19 PM EST) [facility] Hep B Core IgM Negative Negative LAB CHEMISTRY METHOD 07/28/2024 3:22 PM EST [facility] Blood Venous blood specimen / Unknown Venipuncture / Unknown 07/28/2024 12:19 PM EST 07/28/2024 12:35 PM EST Narrative [facility] - 07/28/2024 3:22 PM EST Over the counter supplements containing high doses of biotin may interfere with this assay. ??If interference is suspected, patients shoud be retested after refraining from biotin supplements for 72 hours. us Miguel Quiles MD LAB BLOOD ORDERABLES Final Res ult Performing Organization Address City/[facility]/ZIP Co de Phone Number [facility] [address] [place] [address], [place] [phone] * Hepatitis B surface antibody (07/28/2024 12:19 PM EST) [facility] Hepatitis B Surface Ab Negative Negative LAB CHEMISTRY METHOD 07/28/2024 1:40 PM EST [facility] Hepatitis B Surface Ab Quantitative <3.1 mIU/mL LAB CHEMISTRY METHOD 07/28/2024 1:40 PM EST [facility] Blood Venous blood specimen / Unknown Venipuncture / Unknown 07/28/2024 12:19 PM EST 07/28/2024 12:35 PM EST Narrative [facility] - 07/28/2024 1:40 PM EST >=10 mIU/mL is considered to be consistent with immunity. Miguel Quiles MD LAB BLOOD ORDERABLES Final Res ult [facility] [address] [place] [address], [place] [phone] * (ABNORMAL) POCT Glucose, blood (07/28/2024 11:02 AM EST) [facility] Glucose POCT 220(H) 70 - 100 mg/dL 07/28/2024 11:04 AM EST [facility] Blood Capillary blood specimen / Unknown 07/28/2024 11:02 AM EST 07/28/2024 11:05 AM EST Jonny Mathur MD LAB POINT OF CARE TE ST DOCKED DEVICE UNSOLICITED RESULTS Final Result Performing Organization Address [facility]/ZIP Co de Phone Number [facility] [address] [place] [address], [place] [phone] * (ABNORMAL) CBC auto differential (07/28/2024 9:51 AM EST) WBC 13.0(H) 4.8 - 10.8 K/mcL LAB HEMETOLOGY METHOD 07/28/2024 12:32 PM [facility] RBC 3.10(L) 3.80 - 4.80 M/mcL LAB HEMETOLOGY METHOD 07/28/2024 12:32 PM [facility] Hemoglobin 8.0(L) 11.5 - 16.0 g/dL LAB HEMETOLOGY METHOD 07/28/2024 12:32 PM [facility] Hematocrit 26.5(L) 35.0 - 47.0 % LAB HEMETOLOGY METHOD 07/28/2024 12:32 PM [facility] MCV 84.9 79.0 - 98.0 FL LAB HEMETOLOGY METHOD 07/28/2024 12:32 PM [facility] MCH 25.6(L) 27.0 - 32.0 pcg LAB HEMETOLOGY METHOD 07/28/2024 12:32 PM [facility] MCHC 30.2(L) 32.0 - 37.0 g/dL LAB HEMETOLOGY METHOD 07/28/2024 12:32 PM [facility] RDW 22.8(H) 11.0 - 15.0 % LAB HEMETOLOGY METHOD 07/28/2024 12:32 PM [facility] Platelets 158 130 - 400 K/mcL LAB HEMETOLOGY METHOD 07/28/2024 12:32 PM [facility] MPV 11.5(H) 7.0 - 11.0 FL LAB HEMETOLOGY METHOD 07/28/2024 12:32 PM [facility] NRBC 0.0 <1.0 % LAB HEMETOLOGY METHOD 07/28/2024 12:32 PM [facility] NRBC Absolute 0.00 <0.10 K/mcL LAB HEMETOLOGY METHOD 07/28/2024 12:32 PM [facility] Neutrophils Relative 86.3 % LAB HEMETOLOGY METHOD 07/28/2024 12:32 PM [facility] Lymphocytes Relative 5.8 % LAB HEMETOLOGY METHOD 07/28/2024 12:32 PM [facility] Monocytes Relative 4.8 % LAB HEMETOLOGY METHOD 07/28/2024 12:32 PM [facility] Eosinophils Relative 1.7 % LAB HEMETOLOGY METHOD 07/28/2024 12:32 PM [facility] Basophils Relative 0.1 % LAB HEMETOLOGY METHOD 07/28/2024 12:32 PM [facility] Immature Granulocytes Relative 1.3 % LAB HEMETOLOGY METHOD 07/28/2024 12:32 PM [facility] Neutrophils Absolute 11.22(H) 1.50 - 7.00 K/mcL LAB HEMETOLOGY METHOD 07/28/2024 12:32 PM [facility] Lymphocytes Absolute 0.76(L) 1.00 - 5.00 K/mcL LAB HEMETOLOGY METHOD 07/28/2024 12:32 PM [facility] Monocytes Absolute 0.63 0.20 - 1.00 K/mcL LAB HEMETOLOGY METHOD 07/28/2024 12:32 PM [facility] Eosinophils Absolute 0.22 0.00 - 0.50 K/mcL LAB HEMETOLOGY METHOD 07/28/2024 12:32 PM [facility] Basophils Absolute 0.01 0.00 - 0.20 K/mcL LAB HEMETOLOGY METHOD 07/28/2024 12:32 PM [facility] Immature Granulocytes Absolute 0.17(H) 0.00 - 0.03 K/mcL LAB HEMETOLOGY METHOD 07/28/2024 12:32 PM [facility] Blood Venous blood specimen / Unknown Venipuncture / Unknown 07/28/2024 9:51 AM EST 07/28/2024 12:19 PM EST us Jonny Mathur MD LAB BLOOD ORDERABLES Final Re sult [facility] [address] [place] [address], [place] [phone] * (ABNORMAL) Basic metabolic panel (07/28/2024 9:51 AM EST) Sodium 134 133 - 145 mmol/L LAB CHEMISTRY METHOD 07/28/2024 1:16 PM EST [facility] Potassium 4.0 3.5 - 5.5 mmol/L LAB CHEMISTRY METHOD 07/28/2024 1:16 PM [facility] Chloride 95(L) 96 - 110 mmol/L LAB CHEMISTRY METHOD 07/28/2024 1:16 PM [facility] CO2 29 21 - 32 mmol/L LAB CHEMISTRY METHOD 07/28/2024 1:16 PM [facility] Anion Gap 10 3 - 11 LAB CHEMISTRY METHOD 07/28/2024 1:16 PM [facility] Glucose 230(H) 70 - 100 mg/dL LAB CHEMISTRY METHOD 07/28/2024 1:16 PM [facility] BUN 32(H) 5 - 25 mg/dL LAB CHEMISTRY METHOD 07/28/2024 1:16 PM [facility] Creatinine 2.82(H) 0.50 - 1.10 mg/dL LAB CHEMISTRY METHOD 07/28/2024 1:16 PM [facility] eGFR 16(L) >=60 mL/min/1. 73m2 LAB CHEMISTRY METHOD 07/28/2024 1:16 PM [facility] Comment:Calculation based on the??Chronic Kidney Disease Epidemiology Collaboration (CKD-EPI) equation refit??without adjustment for race. BUN/Creatinine Ratio 11.3 LAB CHEMISTRY METHOD 07/28/2024 1:16 PM EST [facility] Calcium 7.9(L) 8.5 - 10.5 mg/dL LAB CHEMISTRY METHOD 07/28/2024 1:16 PM EST [facility] Blood Venous blood specimen / Unknown Venipuncture / Unknown 07/28/2024 9:51 AM EST 07/28/2024 12:18 PM EST Jonny Mathur MD LAB BLOOD ORDERABLES Final Re sult [facility] [address] [place] [address], [place] [phone] * (ABNORMAL) Heparin and low molecular weight anti Xa level (07/28/2024 9:51 AM EST) Heparin Anti-Xa 0.16(L) 0.30 - 0.70 I Unit/mL LAB COAGULATION METHOD 07/28/2024 12:37 PM EST [facility] Blood Venous blood specimen / Unknown Venipuncture / Unknown 07/28/2024 9:51 AM EST 07/28/2024 12:19 PM EST Narrative [facility] - 07/28/2024 12:37 PM EST Therapeutic range listed is for Unfractionated Heparin. LMW Heparin therapeutic range: 0.50-1.20 IU/mL us Jonny Mathur MD LAB BLOOD ORDERABLES Final Re sult [facility] [address] [place] [address], [place] [phone] * (ABNORMAL) POCT Glucose, blood (07/28/2024 9:29 AM EST) Glucose POCT 214(H) 70 - 100 mg/dL 07/28/2024 10:23 AM EST [facility] Blood Capillary blood specimen / Unknown 07/28/2024 9:29 AM EST 07/28/2024 10:24 AM EST us Jonny Mathur MD LAB POINT OF CARE TE ST DOCKED DEVICE UNSOLICITED RESULTS Final Result Performing Organization Address [facility]/ZIP Co de Phone Number [facility] [address] [place] [address], [place] [phone] * Heparin and low molecular weight anti Xa level (07/28/2024 2:09 AM EST) Heparin Anti-Xa 0.39 0.30 - 0.70 I Unit/mL LAB COAGULATION METHOD 07/28/2024 2:28 AM EST [facility] Blood Venous blood specimen / Unknown Venipuncture / Unknown 07/28/2024 2:09 AM EST 07/28/2024 2:16 AM EST Narrative [facility] - 07/28/2024 2:28 AM EST Therapeutic range listed is for Unfractionated Heparin. LMW Heparin therapeutic range: 0.50-1.20 IU/mL us Jonny Mathur MD LAB BLOOD ORDERABLES Final Re sult [facility] [address] [place] [address], [place] [phone] * (ABNORMAL) Heparin and low molecular weight anti Xa level (07/27/2024 11:55 PM EST) Heparin Anti-Xa 0.22(L) 0.30 - 0.70 I Unit/mL LAB COAGULATION METHOD 07/28/2024 12:28 AM EST [facility] Blood Venous blood specimen / Unknown Venipuncture / Unknown 07/27/2024 11:55 PM EST 07/28/2024 12:20 AM EST Narrative [facility] - 07/28/2024 12:28 AM EST Therapeutic range listed is for Unfractionated Heparin. LMW Heparin therapeutic range: 0.50-1.20 IU/mL us Jonny Mathur MD LAB BLOOD ORDERABLES Final Re sult Performing Organization Address [facility]/State/ZIP Co de Phone Number [facility] [address] [place] [address], [place] [phone] * (ABNORMAL) Heparin and low molecular weight anti Xa level (07/27/2024 9:31 PM EST) Heparin Anti-Xa 1.11(H) 0.30 - 0.70 I Unit/mL LAB COAGULATION METHOD 07/27/2024 9:51 PM EST [facility] Blood Venous blood specimen / Unknown Venipuncture / Unknown 07/27/2024 9:31 PM EST 07/27/2024 9:37 PM EST Narrative [facility] - 07/27/2024 9:51 PM EST Therapeutic range listed is for Unfractionated Heparin. LMW Heparin therapeutic range: 0.50-1.20 IU/mL us Jonny Mathur MD LAB BLOOD ORDERABLES Final Re sult Performing Organization Address [facility]/ZIP Co de Phone Number [facility] [address] [place] [address], [place] [phone] * (ABNORMAL) POCT Glucose, blood (07/27/2024 8:12 PM EST) Glucose POCT 249(H) 70 - 100 mg/dL 07/27/2024 8:13 PM EST [facility] Blood Capillary blood specimen / Unknown 07/27/2024 8:12 PM EST 07/27/2024 8:14 PM EST us Jonny Mathur MD LAB POINT OF CARE TE ST DOCKED DEVICE UNSOLICITED RESULTS Final Result Performing Organization Address City/[facility]/ZIP Co de Phone Number [facility] [address] [place] [address], [place] [phone] * (ABNORMAL) POCT Glucose, blood (07/27/2024 4:34 PM EST) [facility] Glucose POCT 213(H) 70 - 100 mg/dL 07/27/2024 4:40 PM EST [facility] Blood Capillary blood specimen / Unknown 07/27/2024 4:34 PM EST 07/27/2024 4:41 PM EST Jonny Mathur MD LAB POINT OF CARE TE ST DOCKED DEVICE UNSOLICITED RESULTS Final Result [facility] [address] [place] [address], [place] [phone] * (ABNORMAL) Complete blood count (07/27/2024 3:25 PM EST) [facility] WBC 17.5(H) 4.8 - 10.8 K/mcL LAB HEMETOLOGY METHOD 07/27/2024 3:46 PM [facility] RBC 3.30(L) 3.80 - 4.80 M/mcL LAB HEMETOLOGY METHOD 07/27/2024 3:46 PM [facility] Hemoglobin 8.3(L) 11.5 - 16.0 g/dL LAB HEMETOLOGY METHOD 07/27/2024 3:46 PM [facility] Hematocrit 27.7(L) 35.0 - 47.0 % LAB HEMETOLOGY METHOD 07/27/2024 3:46 PM [facility] MCV 83.7 79.0 - 98.0 FL LAB HEMETOLOGY METHOD 07/27/2024 3:46 PM [facility] MCH 25.1(L) 27.0 - 32.0 pcg LAB HEMETOLOGY METHOD 07/27/2024 3:46 PM EST [facility] MCHC 30.0(L) 32.0 - 37.0 g/dL LAB HEMETOLOGY METHOD 07/27/2024 3:46 PM EST [facility] RDW 22.5(H) 11.0 - 15.0 % LAB HEMETOLOGY METHOD 07/27/2024 3:46 PM [facility] Platelets 147 130 - 400 K/mcL LAB HEMETOLOGY METHOD 07/27/2024 3:46 PM EST [facility] MPV 10.8 7.0 - 11.0 FL LAB HEMETOLOGY METHOD 07/27/2024 3:46 PM EST [facility] NRBC 0.0 <1.0 % LAB HEMETOLOGY METHOD 07/27/2024 3:46 PM [facility] NRBC Absolute 0.00 <0.10 K/mcL LAB HEMETOLOGY METHOD 07/27/2024 3:46 PM [facility] Blood Venous blood specimen / Unknown Venipuncture / Unknown 07/27/2024 3:25 PM EST 07/27/2024 3:29 PM EST Jonny Mathur MD LAB BLOOD ORDERABLES Final Re sult [facility] [address] [place] [address], * (ABNORMAL) Heparin and low molecular weight anti Xa level (07/27/2024 1:42 PM EST) Heparin Anti-Xa <0.04(L) 0.30 - 0.70 I Unit/mL LAB COAGULATION METHOD 07/27/2024 2:08 PM EST [facility] Blood Venous blood specimen / Unknown Venipuncture / Unknown 07/27/2024 1:42 PM EST 07/27/2024 1:52 PM EST [facility] - 07/27/2024 2:08 PM EST Therapeutic range listed is for Unfractionated Heparin. LMW Heparin therapeutic range: 0.50-1.20 IU/mL us Jonny Mathur MD LAB BLOOD ORDERABLES Final Re sult [facility] [address] [place] [address], [place] [phone] * (ABNORMAL) Basic metabolic panel (07/27/2024 1:42 PM EST) [facility] Sodium 131(L) 133 - 145 mmol/L LAB CHEMISTRY METHOD 07/27/2024 2:30 PM EST [facility] Potassium 3.8 3.5 - 5.5 mmol/L LAB CHEMISTRY METHOD 07/27/2024 2:30 PM [facility] Chloride 97 96 - 110 mmol/L LAB CHEMISTRY METHOD 07/27/2024 2:30 PM [facility] CO2 28 21 - 32 mmol/L LAB CHEMISTRY METHOD 07/27/2024 2:30 PM [facility] Anion Gap 6 3 - 11 LAB CHEMISTRY METHOD 07/27/2024 2:30 PM [facility] Glucose 150(H) 70 - 100 mg/dL LAB CHEMISTRY METHOD 07/27/2024 2:30 PM [facility] BUN 17 5 - 25 mg/dL LAB CHEMISTRY METHOD 07/27/2024 2:30 PM [facility] Creatinine 1.53(H) 0.50 - 1.10 mg/dL LAB CHEMISTRY METHOD 07/27/2024 2:30 PM [facility] eGFR 34(L) >=60 mL/min/1. 73m2 LAB CHEMISTRY METHOD 07/27/2024 2:30 PM [facility] Comment:Calculation based on the??Chronic Kidney Disease Epidemiology Collaboration (CKD-EPI) equation refit??without adjustment for race. BUN/Creatinine Ratio 11.1 LAB CHEMISTRY METHOD 07/27/2024 2:30 PM EST [facility] Calcium 7.9(L) 8.5 - 10.5 mg/dL LAB CHEMISTRY METHOD 07/27/2024 2:30 PM EST [facility] Blood Venous blood specimen / Unknown Venipuncture / Unknown 07/27/2024 1:42 PM EST 07/27/2024 1:52 PM EST Jonny Mathur MD LAB BLOOD ORDERABLES Final Re sult [facility] [address] [place] [address], [place] [phone] * (ABNORMAL) POCT Glucose, blood (07/27/2024 11:54 AM EST) Glucose POCT 126(H) 70 - 100 mg/dL 07/27/2024 11:57 AM EST [facility] Blood Capillary blood specimen / Unknown 07/27/2024 11:54 AM EST 07/27/2024 11:58 AM EST Jonny Mathur MD LAB POINT OF CARE TE ST DOCKED DEVICE UNSOLICITED RESULTS Final Result Performing Organization Address City/[facility]/ZIP Co de Phone Number [facility] [address] [place] [address], [place] [phone] * (ABNORMAL) CBC auto differential (07/27/2024 6:27 AM EST) WBC 12.4(H) 4.8 - 10.8 K/mcL LAB HEMETOLOGY METHOD 07/27/2024 7:55 AM EST [facility] RBC 3.10(L) 3.80 - 4.80 M/mcL LAB HEMETOLOGY METHOD 07/27/2024 7:55 AM EST [facility] Hemoglobin 7.7(L) 11.5 - 16.0 g/dL LAB HEMETOLOGY METHOD 07/27/2024 7:55 AM [facility] Hematocrit 25.5(L) 35.0 - 47.0 % LAB HEMETOLOGY METHOD 07/27/2024 7:55 AM [facility] MCV 83.3 79.0 - 98.0 FL LAB HEMETOLOGY METHOD 07/27/2024 7:55 AM [facility] MCH 25.2(L) 27.0 - 32.0 pcg LAB HEMETOLOGY METHOD 07/27/2024 7:55 AM [facility] MCHC 30.2(L) 32.0 - 37.0 g/dL LAB HEMETOLOGY METHOD 07/27/2024 7:55 AM [facility] RDW 22.4(H) 11.0 - 15.0 % LAB HEMETOLOGY METHOD 07/27/2024 7:55 AM [facility] Platelets 143 130 - 400 K/mcL LAB HEMETOLOGY METHOD 07/27/2024 7:55 AM [facility] MPV 11.2(H) 7.0 - 11.0 FL LAB HEMETOLOGY METHOD 07/27/2024 7:55 AM [facility] NRBC 0.0 <1.0 % LAB HEMETOLOGY METHOD 07/27/2024 7:55 AM [facility] NRBC Absolute 0.00 <0.10 K/mcL LAB HEMETOLOGY METHOD 07/27/2024 7:55 AM [facility] Neutrophils Relative 82.8 % LAB HEMETOLOGY METHOD 07/27/2024 7:55 AM [facility] Lymphocytes Relative 10.0 % LAB HEMETOLOGY METHOD 07/27/2024 7:55 AM [facility] Monocytes Relative 4.8 % LAB HEMETOLOGY METHOD 07/27/2024 7:55 AM EST [facility] Eosinophils Relative 0.8 % LAB HEMETOLOGY METHOD 07/27/2024 7:55 AM [facility] Basophils Relative 0.1 % LAB HEMETOLOGY METHOD 07/27/2024 7:55 AM [facility] Immature Granulocytes Relative 1.5 % LAB HEMETOLOGY METHOD 07/27/2024 7:55 AM [facility] Neutrophils Absolute 10.27(H) 1.50 - 7.00 K/mcL LAB HEMETOLOGY METHOD 07/27/2024 7:55 AM [facility] Lymphocytes Absolute 1.24 1.00 - 5.00 K/mcL LAB HEMETOLOGY METHOD 07/27/2024 7:55 AM [facility] Monocytes Absolute 0.59 0.20 - 1.00 K/mcL LAB HEMETOLOGY METHOD 07/27/2024 7:55 AM [facility] Eosinophils Absolute 0.10 0.00 - 0.50 K/mcL LAB HEMETOLOGY METHOD 07/27/2024 7:55 AM [facility] Basophils Absolute 0.01 0.00 - 0.20 K/mcL LAB HEMETOLOGY METHOD 07/27/2024 7:55 AM [facility] Immature Granulocytes Absolute 0.19(H) 0.00 - 0.03 K/mcL LAB HEMETOLOGY METHOD 07/27/2024 7:55 AM [facility] Blood Venous blood specimen / Unknown Venipuncture / Unknown 07/27/2024 6:27 AM EST 07/27/2024 7:41 AM EST us Jonny Mathur MD LAB BLOOD ORDERABLES Final Re sult [facility] [address] [place] [address], * (ABNORMAL) Heparin and low molecular weight anti Xa level (07/27/2024 6:27 AM EST) Heparin Anti-Xa 0.74(H) 0.30 - 0.70 I Unit/mL LAB COAGULATION METHOD 07/27/2024 8:11 AM EST [facility] Blood Venous blood specimen / Unknown Venipuncture / Unknown 07/27/2024 6:27 AM EST 07/27/2024 7:41 AM EST [facility] - 07/27/2024 8:11 AM EST Therapeutic range listed is for Unfractionated Heparin. LMW Heparin therapeutic range: 0.50-1.20 IU/mL us Jonny Mathur MD LAB BLOOD ORDERABLES Final Re sult [facility] [address] [place] [address], * (ABNORMAL) CBC - Every 3 Days (07/27/2024 6:27 AM EST) WBC 12.4(H) 4.8 - 10.8 K/mcL LAB HEMETOLOGY METHOD 07/27/2024 7:55 AM [facility] RBC 3.10(L) 3.80 - 4.80 M/mcL LAB HEMETOLOGY METHOD 07/27/2024 7:55 AM [facility] Hemoglobin 7.7(L) 11.5 - 16.0 g/dL LAB HEMETOLOGY METHOD 07/27/2024 7:55 AM [facility] Hematocrit 25.5(L) 35.0 - 47.0 % LAB HEMETOLOGY METHOD 07/27/2024 7:55 AM [facility] MCV 83.3 79.0 - 98.0 FL LAB HEMETOLOGY METHOD 07/27/2024 7:55 AM [facility] MCH 25.2(L) 27.0 - 32.0 pcg LAB HEMETOLOGY METHOD 07/27/2024 7:55 AM EST [facility] MCHC 30.2(L) 32.0 - 37.0 g/dL LAB HEMETOLOGY METHOD 07/27/2024 7:55 AM EST [facility] RDW 22.4(H) 11.0 - 15.0 % LAB HEMETOLOGY METHOD 07/27/2024 7:55 AM EST [facility] Platelets 143 130 - 400 K/mcL LAB HEMETOLOGY METHOD 07/27/2024 7:55 AM EST [facility] MPV 11.2(H) 7.0 - 11.0 FL LAB HEMETOLOGY METHOD 07/27/2024 7:55 AM EST [facility] NRBC 0.0 <1.0 % LAB HEMETOLOGY METHOD 07/27/2024 7:55 AM EST [facility] NRBC Absolute 0.00 <0.10 K/mcL LAB HEMETOLOGY METHOD 07/27/2024 7:55 AM [facility] Blood Venous blood specimen / Unknown Venipuncture / Unknown 07/27/2024 6:27 AM EST 07/27/2024 7:41 AM EST [facility] BLOOD ORDERABLES Final R esult [facility] [address] [place] [address], * (ABNORMAL) Basic metabolic panel (07/27/2024 6:27 AM EST) Sodium 130(L) 133 - 145 mmol/L LAB CHEMISTRY METHOD 07/27/2024 8:43 AM [facility] Potassium 4.2 3.5 - 5.5 mmol/L LAB CHEMISTRY METHOD 07/27/2024 8:43 AM [facility] Chloride 93(L) 96 - 110 mmol/L LAB CHEMISTRY METHOD 07/27/2024 8:43 AM [facility] CO2 30 21 - 32 mmol/L LAB CHEMISTRY METHOD 07/27/2024 8:43 AM [facility] Anion Gap 7 3 - 11 LAB CHEMISTRY METHOD 07/27/2024 8:43 AM [facility] Glucose 182(H) 70 - 100 mg/dL LAB CHEMISTRY METHOD 07/27/2024 8:43 AM [facility] BUN 62(H) 5 - 25 mg/dL LAB CHEMISTRY METHOD 07/27/2024 8:43 AM [facility] Creatinine 3.88(H) 0.50 - 1.10 mg/dL LAB CHEMISTRY METHOD 07/27/2024 8:43 AM [facility] eGFR 11(L) >=60 mL/min/1. 73m2 LAB CHEMISTRY METHOD 07/27/2024 8:43 AM [facility] Comment:Calculation based on the??Chronic Kidney Disease Epidemiology Collaboration (CKD-EPI) equation refit??without adjustment for race. BUN/Creatinine Ratio 16.0 LAB CHEMISTRY METHOD 07/27/2024 8:43 AM [facility] Calcium 8.2(L) 8.5 - 10.5 mg/dL LAB CHEMISTRY METHOD 07/27/2024 8:43 AM [facility] Blood Venous blood specimen / Unknown Venipuncture / Unknown 07/27/2024 6:27 AM EST 07/27/2024 7:41 AM EST us Jonny Mathur MD LAB BLOOD ORDERABLES Final Re sult [facility] [address] [place] [address], * (ABNORMAL) POCT Glucose, blood (07/26/2024 8:23 PM EST) Glucose POCT 189(H) 70 - 100 mg/dL 07/26/2024 8:24 PM EST [facility] Blood Capillary blood specimen / Unknown 07/26/2024 8:23 PM EST 07/26/2024 8:25 PM EST us Jonny Mathur MD LAB POINT OF CARE TE ST DOCKED DEVICE UNSOLICITED RESULTS Final Result [facility] [address] [place] [address], [place] [phone] * (ABNORMAL) POCT Glucose, blood (07/26/2024 4:28 PM EST) Glucose POCT 192(H) 70 - 100 mg/dL 07/26/2024 4:29 PM EST [facility] Blood Capillary blood specimen / Unknown 07/26/2024 4:28 PM EST 07/26/2024 4:30 PM EST us Jonny Mathur MD LAB POINT OF CARE TE ST DOCKED DEVICE UNSOLICITED RESULTS Final Result Performing Organization Address City/[facility]/ZIP Co de Phone Number [facility] [address] [place] [address], [place] [phone] * (ABNORMAL) POCT Glucose, blood (07/26/2024 11:15 AM EST) Glucose POCT 180(H) 70 - 100 mg/dL 07/26/2024 11:17 AM EST [facility] Blood Capillary blood specimen / Unknown 07/26/2024 11:15 AM EST 07/26/2024 11:18 AM EST us Jonny Mathur MD LAB POINT OF CARE TE ST DOCKED DEVICE UNSOLICITED RESULTS Final Result [facility] [address] [place] [address], [place] [phone] * (ABNORMAL) POCT Glucose, blood (07/26/2024 8:08 AM EST) Glucose POCT 128(H) 70 - 100 mg/dL 07/26/2024 8:09 AM EST [facility] Blood Capillary blood specimen / Unknown 07/26/2024 8:08 AM EST 07/26/2024 8:10 AM EST us Jonny Mathur MD LAB POINT OF CARE TE ST DOCKED DEVICE UNSOLICITED RESULTS Final Result Performing Organization Address [facility]/ZIP Co de Phone Number [facility] [address] [place] [address], [place] [phone] * Heparin and low molecular weight anti Xa level (07/26/2024 6:06 AM EST) [facility] Heparin Anti-Xa 0.65 0.30 - 0.70 I Unit/mL LAB COAGULATION METHOD 07/26/2024 7:08 AM EST [facility] Blood Venous blood specimen / Unknown Venipuncture / Unknown 07/26/2024 6:06 AM EST 07/26/2024 6:19 AM EST Narrative [facility] - 07/26/2024 7:08 AM EST Therapeutic range listed is for Unfractionated Heparin. LMW Heparin therapeutic range: 0.50-1.20 IU/mL us Jonny Mathur MD LAB BLOOD ORDERABLES Final Re sult [facility] [address] [place] [address], [place] [phone] * (ABNORMAL) POCT Glucose, blood (07/25/2024 9:22 PM EST) Glucose POCT 183(H) 70 - 100 mg/dL 07/25/2024 9:22 PM EST [facility] Blood Capillary blood specimen / Unknown 07/25/2024 9:22 PM EST 07/25/2024 9:23 PM EST us Jonny Mathur MD LAB POINT OF CARE TE ST DOCKED DEVICE UNSOLICITED RESULTS Final Result [facility] [address] [place] [address], [place] [phone] * (ABNORMAL) POCT Glucose, blood (07/25/2024 4:02 PM EST) Glucose POCT 194(H) 70 - 100 mg/dL 07/25/2024 4:02 PM EST [facility] Blood Capillary blood specimen / Unknown 07/25/2024 4:02 PM EST 07/25/2024 4:03 PM EST us Jonny Mathur MD LAB POINT OF CARE TE ST DOCKED DEVICE UNSOLICITED RESULTS Final Result Performing Organization Address [facility]/ZIP Co de Phone Number [facility] [address] [place] [address], [place] [phone] * (ABNORMAL) POCT Glucose, blood (07/25/2024 2:56 PM EST) Glucose POCT 143(H) 70 - 100 mg/dL 07/25/2024 2:56 PM EST [facility] Blood Capillary blood specimen / Unknown 07/25/2024 2:56 PM EST 07/25/2024 2:58 PM EST us Jonny Mathur MD LAB POINT OF CARE TE ST DOCKED DEVICE UNSOLICITED RESULTS Final Result Performing Organization Address City/[facility]/ZIP Co de Phone Number [facility] [address] [place] [address], [place] [phone] * (ABNORMAL) POCT Glucose, blood (07/25/2024 8:18 AM EST) Pathologist [facility] Glucose POCT 212(H) 70 - 100 mg/dL 07/25/2024 8:19 AM [facility] Blood Capillary blood specimen / Unknown 07/25/2024 8:18 AM EST 07/25/2024 8:20 AM EST Jonny Mathur MD LAB POINT OF CARE TE ST DOCKED DEVICE UNSOLICITED RESULTS Final Result [facility] [address] [place] [address], * (ABNORMAL) CBC auto differential (07/25/2024 5:35 AM EST) [facility] WBC 14.2(H) 4.8 - 10.8 K/mcL LAB HEMETOLOGY METHOD 07/25/2024 7:21 AM [facility] RBC 3.10(L) 3.80 - 4.80 M/mcL LAB HEMETOLOGY METHOD 07/25/2024 7:21 AM [facility] Hemoglobin 8.0(L) 11.5 - 16.0 g/dL LAB HEMETOLOGY METHOD 07/25/2024 7:21 AM [facility] Hematocrit 25.7(L) 35.0 - 47.0 % LAB HEMETOLOGY METHOD 07/25/2024 7:21 AM [facility] MCV 82.1 79.0 - 98.0 FL LAB HEMETOLOGY METHOD 07/25/2024 7:21 AM [facility] MCH 25.6(L) 27.0 - 32.0 pcg LAB HEMETOLOGY METHOD 07/25/2024 7:21 AM [facility] MCHC 31.1(L) 32.0 - 37.0 g/dL LAB HEMETOLOGY METHOD 07/25/2024 7:21 AM [facility] RDW 21.7(H) 11.0 - 15.0 % LAB HEMETOLOGY METHOD 07/25/2024 7:21 AM [facility] Platelets 158 130 - 400 K/mcL LAB HEMETOLOGY METHOD 07/25/2024 7:21 AM [facility] MPV 10.6 7.0 - 11.0 FL LAB HEMETOLOGY METHOD 07/25/2024 7:21 AM [facility] NRBC 0.0 <1.0 % LAB HEMETOLOGY METHOD 07/25/2024 7:21 AM [facility] NRBC Absolute 0.00 <0.10 K/mcL LAB HEMETOLOGY METHOD 07/25/2024 7:21 AM [facility] Neutrophils Relative 83.3 % LAB HEMETOLOGY METHOD 07/25/2024 7:21 AM [facility] Lymphocytes Relative 8.9 % LAB HEMETOLOGY METHOD 07/25/2024 7:21 AM [facility] Monocytes Relative 6.3 % LAB HEMETOLOGY METHOD 07/25/2024 7:21 AM [facility] Eosinophils Relative 0.6 % LAB HEMETOLOGY METHOD 07/25/2024 7:21 AM [facility] Basophils Relative 0.1 % LAB HEMETOLOGY METHOD 07/25/2024 7:21 AM [facility] Immature Granulocytes Relative 0.8 % LAB HEMETOLOGY METHOD 07/25/2024 7:21 AM [facility] Neutrophils Absolute 11.87(H) 1.50 - 7.00 K/mcL LAB HEMETOLOGY METHOD 07/25/2024 7:21 AM [facility] Lymphocytes Absolute 1.26 1.00 - 5.00 K/mcL LAB HEMETOLOGY METHOD 07/25/2024 7:21 AM EST [facility] Monocytes Absolute 0.89 0.20 - 1.00 K/mcL LAB HEMETOLOGY METHOD 07/25/2024 7:21 AM EST [facility] Eosinophils Absolute 0.08 0.00 - 0.50 K/[facility] LAB HEMETOLOGY METHOD 07/25/2024 7:21 AM EST [facility] Basophils Absolute 0.01 0.00 - 0.20 K/[facility] LAB HEMETOLOGY METHOD 07/25/2024 7:21 AM EST [facility] Immature Granulocytes Absolute 0.11(H) 0.00 - 0.03 K/[facility] LAB HEMETOLOGY METHOD 07/25/2024 7:21 AM EST [facility] Blood Venous blood specimen / Unknown Venipuncture / Unknown 07/25/2024 5:35 AM EST 07/25/2024 6:48 AM EST Lencho Stuart MD LAB BLOOD ORDERABLES Final R esult [facility] [address] [place] [address], * Heparin and low molecular weight anti Xa level (07/25/2024 5:35 AM EST) Heparin Anti-Xa 0.61 0.30 - 0.70 I Unit/mL LAB COAGULATION METHOD 07/25/2024 7:17 AM EST [facility] Blood Venous blood specimen / Unknown Venipuncture / Unknown 07/25/2024 5:35 AM EST 07/25/2024 6:48 AM EST Narrative [facility] - 07/25/2024 7:17 AM EST Therapeutic range listed is for Unfractionated Heparin. LMW Heparin therapeutic range: 0.50-1.20 IU/mL us Lencho Stuart MD LAB BLOOD ORDERABLES Final R esult [facility] [address] [place] [address], * (ABNORMAL) Basic metabolic panel (07/25/2024 5:35 AM EST) Sodium 132(L) 133 - 145 mmol/L LAB CHEMISTRY METHOD 07/25/2024 7:57 AM EST [facility] Potassium 4.2 3.5 - 5.5 mmol/L LAB CHEMISTRY METHOD 07/25/2024 7:57 AM [facility] Chloride 94(L) 96 - 110 mmol/L LAB CHEMISTRY METHOD 07/25/2024 7:57 AM [facility] CO2 30 21 - 32 mmol/L LAB CHEMISTRY METHOD 07/25/2024 7:57 AM EST [facility] Anion Gap 8 3 - 11 LAB CHEMISTRY METHOD 07/25/2024 7:57 AM [facility] Glucose 194(H) 70 - 100 mg/dL LAB CHEMISTRY METHOD 07/25/2024 7:57 AM [facility] BUN 77(H) 5 - 25 mg/dL LAB CHEMISTRY METHOD 07/25/2024 7:57 AM [facility] Creatinine 3.91(H) 0.50 - 1.10 mg/dL LAB CHEMISTRY METHOD 07/25/2024 7:57 AM [facility] eGFR 11(L) >=60 mL/min/1. 73m2 LAB CHEMISTRY METHOD 07/25/2024 7:57 AM [facility] Comment:Calculation based on the??Chronic Kidney Disease Epidemiology Collaboration (CKD-EPI) equation refit??without adjustment for race. BUN/Creatinine Ratio 19.7 LAB CHEMISTRY METHOD 07/25/2024 7:57 AM [facility] Calcium 8.2(L) 8.5 - 10.5 mg/dL LAB CHEMISTRY METHOD 07/25/2024 7:57 AM EST [facility] Blood Venous blood specimen / Unknown Venipuncture / Unknown 07/25/2024 5:35 AM EST 07/25/2024 6:48 AM EST us Lencho Stuart MD LAB BLOOD ORDERABLES Final R esult Performing Organization Address City/[facility]/ZIP Co de Phone Number [facility] [address] [place] [address], [place] [phone] * (ABNORMAL) POCT Glucose, blood (07/24/2024 7:58 PM EST) Glucose POCT 228(H) 70 - 100 mg/dL 07/24/2024 7:58 PM EST [facility] Blood Capillary blood specimen / Unknown 07/24/2024 7:58 PM EST 07/24/2024 8:00 PM EST us Lencho Stuart MD LAB POINT OF CARE TE ST DOCKED DEVICE UNSOLICITED RESULTS Final Result Performing Organization Address City/[facility] Co de Phone Number [facility] [address] [place] [address], [place] [phone] * (ABNORMAL) POCT Glucose, blood (07/24/2024 3:24 PM EST) Glucose POCT 239(H) 70 - 100 mg/dL 07/24/2024 3:25 PM EST [facility] POCT Comment RN Notified 07/24/2024 3:25 PM EST [facility] Blood Capillary blood specimen / Unknown 07/24/2024 3:24 PM EST 07/24/2024 3:26 PM EST us Lencho Stuart MD LAB POINT OF CARE TE ST DOCKED DEVICE UNSOLICITED RESULTS Final Result Performing Organization Address [facility] Co de Phone Number [facility] [address] [place] [address], [place] [phone] * (ABNORMAL) POCT Glucose, blood (07/24/2024 11:39 AM EST) Glucose POCT 260(H) 70 - 100 mg/dL 07/24/2024 11:40 AM EST [facility] POCT Comment RN Notified 07/24/2024 11:40 AM EST [facility] Blood Capillary blood specimen / Unknown 07/24/2024 11:39 AM EST 07/24/2024 11:41 AM EST us Lencho Stuart MD LAB POINT OF CARE TE ST DOCKED DEVICE UNSOLICITED RESULTS Final Result Performing Organization Address [facility] de Phone Number [facility] [address] [place] [address], [place] [phone] * (ABNORMAL) POCT Glucose, blood (07/24/2024 7:32 AM EST) Glucose POCT 301(H) 70 - 100 mg/dL 07/24/2024 7:33 AM EST [facility] POCT Comment RN Notified 07/24/2024 7:33 AM EST [facility] Blood Capillary blood specimen / Unknown 07/24/2024 7:32 AM EST 07/24/2024 7:34 AM EST us Lencho Stuart MD LAB POINT OF CARE TE ST DOCKED DEVICE UNSOLICITED RESULTS Final Result Performing Organization Address [facility] Co de Phone Number [facility] [address] [place] [address], [place] [phone] * Heparin and low molecular weight anti Xa level (07/24/2024 6:48 AM EST) [facility] Heparin Anti-Xa 0.60 0.30 - 0.70 I Unit/mL LAB COAGULATION METHOD 07/24/2024 7:29 AM EST [facility] Blood Venous blood specimen / Unknown Venipuncture / Unknown 07/24/2024 6:48 AM EST 07/24/2024 7:03 AM EST [facility] - 07/24/2024 7:29 AM EST Therapeutic range listed is for Unfractionated Heparin. LMW Heparin therapeutic range: 0.50-1.20 IU/mL [facility] BLOOD ORDERABLES Final R esult [facility] [address] [place] [address], * (ABNORMAL) CBC auto differential (07/24/2024 6:48 AM EST) [facility] WBC 13.1(H) 4.8 - 10.8 K/mcL LAB HEMETOLOGY METHOD 07/24/2024 7:30 AM [facility] RBC 3.10(L) 3.80 - 4.80 M/mcL LAB HEMETOLOGY METHOD 07/24/2024 7:30 AM [facility] Hemoglobin 7.7(L) 11.5 - 16.0 g/dL LAB HEMETOLOGY METHOD 07/24/2024 7:30 AM [facility] Hematocrit 25.3(L) 35.0 - 47.0 % LAB HEMETOLOGY METHOD 07/24/2024 7:30 AM [facility] MCV 81.4 79.0 - 98.0 FL LAB HEMETOLOGY METHOD 07/24/2024 7:30 AM [facility] MCH 24.8(L) 27.0 - 32.0 pcg LAB HEMETOLOGY METHOD 07/24/2024 7:30 AM [facility] MCHC 30.4(L) 32.0 - 37.0 g/dL LAB HEMETOLOGY METHOD 07/24/2024 7:30 AM [facility] RDW 21.7(H) 11.0 - 15.0 % LAB HEMETOLOGY METHOD 07/24/2024 7:30 AM [facility] Platelets 174 130 - 400 K/mcL LAB HEMETOLOGY METHOD 07/24/2024 7:30 AM [facility] MPV 10.6 7.0 - 11.0 FL LAB HEMETOLOGY METHOD 07/24/2024 7:30 AM [facility] NRBC 0.0 <1.0 % LAB HEMETOLOGY METHOD 07/24/2024 7:30 AM [facility] NRBC Absolute 0.00 <0.10 K/mcL LAB HEMETOLOGY METHOD 07/24/2024 7:30 AM [facility] Neutrophils Relative 84.4 % LAB HEMETOLOGY METHOD 07/24/2024 7:30 AM [facility] Lymphocytes Relative 6.4 % LAB HEMETOLOGY METHOD 07/24/2024 7:30 AM [facility] Monocytes Relative 8.3 % LAB HEMETOLOGY METHOD 07/24/2024 7:30 AM [facility] Eosinophils Relative 0.0 % LAB HEMETOLOGY METHOD 07/24/2024 7:30 AM [facility] Basophils Relative 0.1 % LAB HEMETOLOGY METHOD 07/24/2024 7:30 AM [facility] Immature Granulocytes Relative 0.8 % LAB HEMETOLOGY METHOD 07/24/2024 7:30 AM [facility] Neutrophils Absolute 11.03(H) 1.50 - 7.00 K/mcL LAB HEMETOLOGY METHOD 07/24/2024 7:30 AM EST [facility] Lymphocytes Absolute 0.83(L) 1.00 - 5.00 K/mcL LAB HEMETOLOGY METHOD 07/24/2024 7:30 AM EST [facility] Monocytes Absolute 1.08(H) 0.20 - 1.00 K/mcL LAB HEMETOLOGY METHOD 07/24/2024 7:30 AM EST [facility] Eosinophils Absolute 0.00 0.00 - 0.50 K/[facility] LAB HEMETOLOGY METHOD 07/24/2024 7:30 AM EST [facility] Basophils Absolute 0.01 0.00 - 0.20 K/[facility] LAB HEMETOLOGY METHOD 07/24/2024 7:30 AM [facility] Immature Granulocytes Absolute 0.11(H) 0.00 - 0.03 K/mcL LAB HEMETOLOGY METHOD 07/24/2024 7:30 AM [facility] Blood Venous blood specimen / Unknown Venipuncture / Unknown 07/24/2024 6:48 AM EST 07/24/2024 7:03 AM EST us [facility] LAB BLOOD ORDERABLES Final R esult [facility] [address] [place] [address], * (ABNORMAL) CBC - Every 3 Days (07/24/2024 6:48 AM EST) WBC 13.1(H) 4.8 - 10.8 K/mcL LAB HEMETOLOGY METHOD 07/24/2024 7:30 AM EST [facility] RBC 3.10(L) 3.80 - 4.80 M/mcL LAB HEMETOLOGY METHOD 07/24/2024 7:30 AM [facility] Hemoglobin 7.7(L) 11.5 - 16.0 g/dL LAB HEMETOLOGY METHOD 07/24/2024 7:30 AM [facility] Hematocrit 25.3(L) 35.0 - 47.0 % LAB HEMETOLOGY METHOD 07/24/2024 7:30 AM [facility] MCV 81.4 79.0 - 98.0 FL LAB HEMETOLOGY METHOD 07/24/2024 7:30 AM [facility] MCH 24.8(L) 27.0 - 32.0 pcg LAB HEMETOLOGY METHOD 07/24/2024 7:30 AM [facility] MCHC 30.4(L) 32.0 - 37.0 g/dL LAB HEMETOLOGY METHOD 07/24/2024 7:30 AM [facility] RDW 21.7(H) 11.0 - 15.0 % LAB HEMETOLOGY METHOD 07/24/2024 7:30 AM [facility] Platelets 174 130 - 400 K/mcL LAB HEMETOLOGY METHOD 07/24/2024 7:30 AM [facility] MPV 10.6 7.0 - 11.0 FL LAB HEMETOLOGY METHOD 07/24/2024 7:30 AM [facility] NRBC 0.0 <1.0 % LAB HEMETOLOGY METHOD 07/24/2024 7:30 AM [facility] NRBC Absolute 0.00 <0.10 K/mcL LAB HEMETOLOGY METHOD 07/24/2024 7:30 AM [facility] Blood Venous blood specimen / Unknown Venipuncture / Unknown 07/24/2024 6:48 AM EST 07/24/2024 7:03 AM EST us [facility] LAB BLOOD ORDERABLES Final R esult [facility] [address] [place] [address], * (ABNORMAL) Basic metabolic panel (07/24/2024 6:48 AM EST) Sodium 132(L) 133 - 145 mmol/L LAB CHEMISTRY METHOD 07/24/2024 8:38 AM [facility] Potassium 4.1 3.5 - 5.5 mmol/L LAB CHEMISTRY METHOD 07/24/2024 8:38 AM [facility] Chloride 94(L) 96 - 110 mmol/L LAB CHEMISTRY METHOD 07/24/2024 8:38 AM [facility] CO2 29 21 - 32 mmol/L LAB CHEMISTRY METHOD 07/24/2024 8:38 AM [facility] Anion Gap 9 3 - 11 LAB CHEMISTRY METHOD 07/24/2024 8:38 AM [facility] Glucose 286(H) 70 - 100 mg/dL LAB CHEMISTRY METHOD 07/24/2024 8:38 AM [facility] BUN 54(H) 5 - 25 mg/dL LAB CHEMISTRY METHOD 07/24/2024 8:38 AM [facility] Creatinine 2.84(H) 0.50 - 1.10 mg/dL LAB CHEMISTRY METHOD 07/24/2024 8:38 AM [facility] eGFR 16(L) >=60 mL/min/1. 73m2 LAB CHEMISTRY METHOD 07/24/2024 8:38 AM [facility] Comment:Calculation based on the??Chronic Kidney Disease Epidemiology Collaboration (CKD-EPI) equation refit??without adjustment for race. BUN/Creatinine Ratio 19.0 LAB CHEMISTRY METHOD 07/24/2024 8:38 AM [facility] Calcium 8.0(L) 8.5 - 10.5 mg/dL LAB CHEMISTRY METHOD 07/24/2024 8:38 AM [facility] Blood Venous blood specimen / Unknown Venipuncture / Unknown 07/24/2024 6:48 AM EST 07/24/2024 7:03 AM EST us Lencho Stuart MD LAB BLOOD ORDERABLES Final R esult Performing Organization Address City/[facility]/ZIP Co de Phone Number [facility] [address] [place] [address], [place] [phone] * Heparin and low molecular weight anti Xa level (07/24/2024 12:07 AM EST) Pathologist [facility] Heparin Anti-Xa 0.69 0.30 - 0.70 I Unit/mL LAB COAGULATION METHOD 07/24/2024 12:28 AM EST [facility] Blood Venous blood specimen / Unknown Venipuncture / Unknown 07/24/2024 12:07 AM EST 07/24/2024 12:17 AM EST Narrative [facility] - 07/24/2024 12:28 AM EST Therapeutic range listed is for Unfractionated Heparin. LMW Heparin therapeutic range: 0.50-1.20 IU/mL us Lencho Stuart MD LAB BLOOD ORDERABLES Final R esult Performing Organization Address [facility]/ZIP Co de Phone Number [facility] [address] [place] [address], [place] [phone] * (ABNORMAL) POCT Glucose, blood (07/23/2024 7:35 PM EST) [facility] Glucose POCT 320(H) 70 - 100 mg/dL 07/23/2024 7:35 PM EST [facility] Blood Capillary blood specimen / Unknown 07/23/2024 7:35 PM EST 07/23/2024 7:37 PM EST us Lencho Stuart MD LAB POINT OF CARE TE ST DOCKED DEVICE UNSOLICITED RESULTS Final Result [facility] [address] [place] [address], [place] [phone] * Transfuse RBC (07/23/2024 6:19 PM EST) Result Rea Stuart MD BLOOD TRANSFUSION ORDERABLES Final Result * Transfuse RBC: 1 Units (07/23/2024 6:19 PM EST) Result Rea Stuart MD BLOOD TRANSFUSION ORDERABLES Final Result * Insert Midline (07/23/2024 4:52 PM EST) Narrative Maggy Spencer, ILIR - 07/23/2024 4:52 PM EST Maggy Spencer, ILIR ? 07/23/2024 ??5:02 PM Midline Insertion Procedure Note Procedure: Insertion of 18g/10cm Bard Powerglide midline Lot: [id number] Exp: 2025-05-28 Indications: ??Difficult draw with frequent [...] well. Recommendations: May use for blood draws Result [facility] us Lencho Stuart MD IV THERAPY ORDERABLES Final Result * (ABNORMAL) POCT Glucose, blood (07/23/2024 4:30 PM EST) Glucose POCT 248(H) 70 - 100 mg/dL 07/23/2024 4:31 PM EST [facility] Blood Capillary blood specimen / Unknown 07/23/2024 4:30 PM EST 07/23/2024 4:32 PM EST Result [facility] Lencho Stuart MD LAB POINT OF CARE TE ST DOCKED DEVICE UNSOLICITED RESULTS Final Result [facility] [address] [place] [address], [place] [phone] * (ABNORMAL) Heparin and low molecular weight anti Xa level (07/23/2024 4:08 PM EST) Heparin Anti-Xa 0.82(H) 0.30 - 0.70 I Unit/mL LAB COAGULATION METHOD 07/23/2024 4:33 PM EST [facility] Blood Venous blood specimen / Unknown Venipuncture / Unknown 07/23/2024 4:08 PM EST 07/23/2024 4:24 PM EST Narrative [facility] - 07/23/2024 4:33 PM EST Therapeutic range listed is for Unfractionated Heparin. LMW Heparin therapeutic range: 0.50-1.20 IU/mL Lencho Stuart MD LAB BLOOD ORDERABLES Final R esult Performing Organization Address City/[facility]/ZIP Co de Phone Number [facility] [address] [place] [address], [place] [phone] * Type and screen (07/23/2024 12:31 PM EST) ABO Group O 07/23/2024 2:33 PM EST [facility] Rh Type Positive 07/23/2024 2:33 PM EST [facility] Antibody Screen Negative 07/23/2024 2:33 PM EST [facility] Blood Venous blood specimen / Unknown Venipuncture / Unknown 07/23/2024 12:31 PM EST 07/23/2024 12:50 PM EST Lencho Stuart MD LAB BLOOD BANK TEST ORDERABL ES Final Result [facility] [address] [place] [address], [place] [phone] * (ABNORMAL) POCT Glucose, blood (07/23/2024 12:12 PM EST) [facility] Glucose POCT 204(H) 70 - 100 mg/dL 07/23/2024 12:13 PM EST [facility] Blood Capillary blood specimen / Unknown 07/23/2024 12:12 PM EST 07/23/2024 12:14 PM EST us Lencho Stuart MD LAB POINT OF CARE TE ST DOCKED DEVICE UNSOLICITED RESULTS Final Result [facility] [address] [place] [address], [place] [phone] * Prepare RBC: 1 Units (07/23/2024 11:14 AM EST) [facility] Product Code [id number] 07/23/2024 3:38 PM [facility] Unit Number [id number] 07/23/19 3:38 PM [facility] Crossmatch Compatible 07/23/2024 2:36 PM [facility] Dispense Status Transfused 07/23/2024 3:38 PM [facility] Unit ABO Rh OPOS 07/23/2024 3:38 PM [facility] Unit Expiration Date Time [id number] 07/23/2024 3:38 PM [facility] Unit Blood Type 5100 07/23/2024 3:38 PM [facility] Blood Venous blood specimen / Unknown 07/23/2024 11:14 AM EST 07/23/2024 12:50 PM EST us Lencho Stuart MD BLOOD BANK PRODUCT ORDERABLE S Final Result [facility] [address] [place] [address], [place] [phone] * (ABNORMAL) Heparin and low molecular weight anti Xa level (07/23/2024 8:40 AM EST) Pathologist [facility] Heparin Anti-Xa 0.77(H) 0.30 - 0.70 I Unit/mL LAB COAGULATION METHOD 07/23/2024 9:05 AM EST [facility] Blood Venous blood specimen / Unknown Venipuncture / Unknown 07/23/2024 8:40 AM EST 07/23/2024 8:47 AM EST Narrative [facility] - 07/23/2024 9:05 AM EST Therapeutic range listed is for Unfractionated Heparin. LMW Heparin therapeutic range: 0.50-1.20 IU/mL Lencho Stuart MD LAB BLOOD ORDERABLES Final R esult [facility] [address] [place] [address], [place] [phone] * (ABNORMAL) CBC auto differential (07/23/2024 5:44 AM EST) Pathologist [facility] WBC 11.6(H) 4.8 - 10.8 K/mcL LAB HEMETOLOGY METHOD 07/23/2024 7:10 AM [facility] RBC 2.80(L) 3.80 - 4.80 M/mcL LAB HEMETOLOGY METHOD 07/23/2024 7:10 AM [facility] Hemoglobin 6.9(L) 11.5 - 16.0 g/dL LAB HEMETOLOGY METHOD 07/23/2024 7:10 AM [facility] Hematocrit 23.0(L) 35.0 - 47.0 % LAB HEMETOLOGY METHOD 07/23/2024 7:10 AM [facility] MCV 81.6 79.0 - 98.0 FL LAB HEMETOLOGY METHOD 07/23/2024 7:10 AM [facility] MCH 24.5(L) 27.0 - 32.0 pcg LAB HEMETOLOGY METHOD 07/23/2024 7:10 AM [facility] MCHC 30.0(L) 32.0 - 37.0 g/dL LAB HEMETOLOGY METHOD 07/23/2024 7:10 AM [facility] RDW 23.3(H) 11.0 - 15.0 % LAB HEMETOLOGY METHOD 07/23/2024 7:10 AM [facility] Platelets 206 130 - 400 K/mcL LAB HEMETOLOGY METHOD 07/23/2024 7:10 AM [facility] MPV 10.5 7.0 - 11.0 FL LAB HEMETOLOGY METHOD 07/23/2024 7:10 AM [facility] NRBC 0.0 <1.0 % LAB HEMETOLOGY METHOD 07/23/2024 7:10 AM [facility] NRBC Absolute 0.00 <0.10 K/mcL LAB HEMETOLOGY METHOD 07/23/2024 7:10 AM [facility] Neutrophils Relative 90.8 % LAB HEMETOLOGY METHOD 07/23/2024 7:10 AM [facility] Lymphocytes Relative 3.4 % LAB HEMETOLOGY METHOD 07/23/2024 7:10 AM [facility] Monocytes Relative 5.0 % LAB HEMETOLOGY METHOD 07/23/2024 7:10 AM [facility] Eosinophils Relative 0.0 % LAB HEMETOLOGY METHOD 07/23/2024 7:10 AM [facility] Basophils Relative 0.1 % LAB HEMETOLOGY METHOD 07/23/2024 7:10 AM EST [facility] Immature Granulocytes Relative 0.7 % LAB HEMETOLOGY METHOD 07/23/2024 7:10 AM EST [facility] Neutrophils Absolute 10.52(H) 1.50 - 7.00 K/mcL LAB HEMETOLOGY METHOD 07/23/2024 7:10 AM EST [facility] Lymphocytes Absolute 0.39(L) 1.00 - 5.00 K/mcL LAB HEMETOLOGY METHOD 07/23/2024 7:10 AM EST [facility] Monocytes Absolute 0.58 0.20 - 1.00 K/mcL LAB HEMETOLOGY METHOD 07/23/2024 7:10 AM EST [facility] Eosinophils Absolute 0.00 0.00 - 0.50 K/mcL LAB HEMETOLOGY METHOD 07/23/2024 7:10 AM EST [facility] Basophils Absolute 0.01 0.00 - 0.20 K/mcL LAB HEMETOLOGY METHOD 07/23/2024 7:10 AM [facility] Immature Granulocytes Absolute 0.08(H) 0.00 - 0.03 K/mcL LAB HEMETOLOGY METHOD 07/23/2024 7:10 AM EST [facility] Blood Venous blood specimen / Unknown Venipuncture / Unknown 07/23/2024 5:44 AM EST 07/23/2024 6:50 AM EST [facility] LAB BLOOD ORDERABLES Final R esult [facility] [address] [place] [address], * (ABNORMAL) Basic metabolic panel (07/23/2024 5:44 AM EST) Sodium 130(L) 133 - 145 mmol/L LAB CHEMISTRY METHOD 07/23/2024 8:36 AM EST [facility] Potassium 5.5 3.5 - 5.5 mmol/L LAB CHEMISTRY METHOD 07/23/2024 8:36 AM [facility] Chloride 92(L) 96 - 110 mmol/L LAB CHEMISTRY METHOD 07/23/2024 8:36 AM [facility] CO2 29 21 - 32 mmol/L LAB CHEMISTRY METHOD 07/23/2024 8:36 AM [facility] Anion Gap 9 3 - 11 LAB CHEMISTRY METHOD 07/23/2024 8:36 AM [facility] Glucose 378(H) 70 - 100 mg/dL LAB CHEMISTRY METHOD 07/23/2024 8:36 AM [facility] BUN 76(H) 5 - 25 mg/dL LAB CHEMISTRY METHOD 07/23/2024 8:36 AM [facility] Creatinine 4.16(H) 0.50 - 1.10 mg/dL LAB CHEMISTRY METHOD 07/23/2024 8:36 AM [facility] eGFR 10(L) >=60 mL/min/1. 73m2 LAB CHEMISTRY METHOD 07/23/2024 8:36 AM [facility] Comment:Calculation based on the??Chronic Kidney Disease Epidemiology Collaboration (CKD-EPI) equation refit??without adjustment for race. BUN/Creatinine Ratio 18.3 LAB CHEMISTRY METHOD 07/23/2024 8:36 AM [facility] Calcium 7.9(L) 8.5 - 10.5 mg/dL LAB CHEMISTRY METHOD 07/23/2024 8:36 AM [facility] Blood Venous blood specimen / Unknown Venipuncture / Unknown 07/23/2024 5:44 AM EST 07/23/2024 6:50 AM EST us [facility] LAB BLOOD ORDERABLES Final R esult [facility] [address] [place] [address], [place] [phone] * (ABNORMAL) Heparin and low molecular weight anti Xa level (07/23/2024 2:05 AM EST) Heparin Anti-Xa 0.87(H) 0.30 - 0.70 I Unit/mL LAB COAGULATION METHOD 07/23/2024 2:20 AM EST [facility] Blood Venous blood specimen / Unknown Venipuncture / Unknown 07/23/2024 2:05 AM EST 07/23/2024 2:10 AM EST Narrative [facility] - 07/23/2024 2:20 AM EST Therapeutic range listed is for Unfractionated Heparin. LMW Heparin therapeutic range: 0.50-1.20 IU/mL us Lencho Stuart MD LAB BLOOD ORDERABLES Final R esult [facility] [address] [place] [address], [place] [phone] * (ABNORMAL) POCT Glucose, blood (07/22/2024 8:10 PM EST) [facility] Glucose POCT 304(H) 70 - 100 mg/dL 07/22/2024 8:10 PM EST [facility] Blood Capillary blood specimen / Unknown 07/22/2024 8:10 PM EST 07/22/2024 8:11 PM EST us Lencho Stuart MD LAB POINT OF CARE TE ST DOCKED DEVICE UNSOLICITED RESULTS Final Result [facility] [address] [place] [address], [place] [phone] * (ABNORMAL) Hemoglobin and hematocrit (07/22/2024 6:40 PM EST) Hemoglobin 7.1(L) 11.5 - 16.0 g/dL LAB HEMETOLOGY METHOD 07/22/2024 7:24 PM EST [facility] Hematocrit 23.3(L) 35.0 - 47.0 % LAB HEMETOLOGY METHOD 07/22/2024 7:24 PM EST [facility] Blood Venous blood specimen / Unknown Venipuncture / Unknown 07/22/2024 6:40 PM EST 07/22/2024 7:20 PM EST Fela Palomo MD LAB BLOOD ORDERABLES Final Resu lt [facility] [address] [place] [address], [place] [phone] * (ABNORMAL) POCT Glucose, blood (07/22/2024 4:10 PM EST) Glucose POCT 267(H) 70 - 100 mg/dL 07/22/2024 4:11 PM EST [facility] Blood Capillary blood specimen / Unknown 07/22/2024 4:10 PM EST 07/22/2024 4:12 PM EST Lencho Stuart MD LAB POINT OF CARE TE ST DOCKED DEVICE UNSOLICITED RESULTS Final Result Performing Organization Address [facility]/ZIP Co de Phone Number [facility] [address] [place] [address], [place] [phone] * IR Bx Ndl Renal Perc Left [...] Signed Date: 07/22/2024 17:00 ET Workstation ID: [id number] Transcribed By: Self Edit Transcribed Date: 07/22/2024 [...] of fentanyl administered during the procedure. Scanner: NaviExpert [address] Dose reduction technique: AEC [...] of fentanyl administered during the procedure. Scanner: [employer]iExpert [address] Dose reduction technique: AEC [...] Signed Date: 07/22/2024 17:00 ET Workstation ID: [id number] Transcribed By: Self Edit Transcribed Date: 07/22/2024 [...] Tissue exam (07/22/2024 3:13 PM EST) Addendum [facility] Kidney (addendum) This case was sent to [facility], Department of Pathology, [place], [place] (CLIA: [id number]). Their diagnosis is summarized as follows: Pathologic [...] report for full kidney biopsy diagnosis from [facility], [place], [place]) 08/12/2024 10:52 AM EST [facility] ([facility]) [facility] Addendum electronically signed by Mitchell Prince MD on 08/12/2024 at 10:52 AM Final Diagnosis Kidney, left-biopsies for routine, immunofluorescence and electron microscopy: -Submitted in toto to [facility] -See addendum report 08/12/2024 10:52 AM EST [facility] Gross Description A. Kidney, Left, : Labeled kidney L . Received fresh in saline are 3 perez-pink soft tissue cores, ranging from 0.7 x 0.1 cm to 1.7 x 0.1 cm, which are transfered to formalin for light microscopy, Mick fixative for Immunofluorescence, and Glutaraldehyde for electron microscopy. [facility] ELOISE 08/12/2024 10:52 AM [facility] Disclaimer Unless otherwise specified, all tissue is 10% NB formalin fixed and paraffin embedded. 08/12/2024 10:52 AM [facility] Tissue Left kidney structure / Unknown 07/22/2024 3:13 PM EST 07/22/2024 3:39 PM EST Fela Palomo MD LAB PATHOLOGY ORDERABLES Edited Result - Final [facility] [address] [place] [address], [place] [phone] * (ABNORMAL) Prothrombin time with INR (07/22/2024 11:00 AM EST) Protime 16.3(H) 10.6 - 13.9 sec LAB COAGULATION METHOD 07/22/2024 1:11 PM [facility] INR 1.3 LAB COAGULATION METHOD 07/22/2024 1:11 PM [facility] Blood Venous blood specimen / Unknown Venipuncture / Unknown 07/22/2024 11:00 AM EST 07/22/2024 11:22 AM EST Lencho Stuart MD LAB BLOOD ORDERABLES Final R esult [facility] [address] [place] [address], [place] [phone] * (ABNORMAL) Anti-Xa - Every 6 Hours (07/22/2024 11:00 AM EST) Heparin Anti-Xa <0.04(L) 0.30 - 0.70 I Unit/mL LAB COAGULATION METHOD 07/22/2024 12:11 PM EST [facility] Blood Venous blood specimen / Unknown Venipuncture / Unknown 07/22/2024 11:00 AM EST 07/22/2024 11:22 AM EST Narrative [facility] - 07/22/2024 12:11 PM EST Therapeutic range listed is for Unfractionated Heparin. LMW Heparin therapeutic range: 0.50-1.20 IU/mL us Lencho Stuart MD LAB BLOOD ORDERABLES Final R esult Performing Organization Address City/[facility]/ZIP Co de Phone Number [facility] [address] [place] [address], [place] [phone] * Lavender tube (07/22/2024 10:53 AM EST) Extra Tube Hold for add-ons. 07/22/2024 1:01 PM EST [facility] Comment:Auto resulted. Blood Venous blood specimen / Unknown 07/22/2024 10:53 AM EST 07/22/2024 11:25 AM EST us Lencho Stuart MD LAB BLOOD ORDERABLES Final R esult [facility] [address] [place] [address], [place] [phone] * SST tube (07/22/2024 10:53 AM EST) Extra Tube Hold for add-ons. 07/22/2024 1:01 PM EST [facility] Comment:Auto resulted. Blood Venous blood specimen / Unknown 07/22/2024 10:53 AM EST 07/22/2024 11:25 AM EST us Lencho Stuart MD LAB BLOOD ORDERABLES Final R esult Performing Organization Address [facility]/ZIP Co de Phone Number [facility] [address] [place] [address], [place] [phone] * (ABNORMAL) POCT Glucose, blood (07/22/2024 10:48 AM EST) Glucose POCT 280(H) 70 - 100 mg/dL 07/22/2024 11:08 AM EST [facility] Blood Capillary blood specimen / Unknown 07/22/2024 10:48 AM EST 07/22/2024 11:09 AM EST us Lencho Stuart MD LAB POINT OF CARE TE ST DOCKED DEVICE UNSOLICITED RESULTS Final Result Performing Organization Address [facility] Co de Phone Number [facility] [address] [place] [address], [place] [phone] * (ABNORMAL) POCT Glucose, blood (07/22/2024 8:10 AM EST) Glucose POCT 300(H) 70 - 100 mg/dL 07/22/2024 8:11 AM EST [facility] Blood Capillary blood specimen / Unknown 07/22/2024 8:10 AM EST 07/22/2024 8:13 AM EST us Lencho Stuart MD LAB POINT OF CARE TE ST DOCKED DEVICE UNSOLICITED RESULTS Final Result Performing Organization Address City/[facility]/ZIP Co de Phone Number [facility] [address] [place] [address], [place] [phone] * (ABNORMAL) POCT Glucose, blood (07/22/2024 3:43 AM EST) Glucose POCT 276(H) 70 - 100 mg/dL 07/22/2024 3:44 AM [facility] Blood Capillary blood specimen / Unknown 07/22/2024 3:43 AM EST 07/22/2024 3:45 AM EST [facility] LAB POINT OF CARE TE ST DOCKED DEVICE UNSOLICITED RESULTS Final Result [facility] [address] [place] [address], * (ABNORMAL) CBC auto differential (07/22/2024 3:11 AM EST) Pathologist [facility] WBC 9.6 4.8 - 10.8 K/mcL LAB HEMETOLOGY METHOD 07/22/2024 3:32 AM [facility] RBC 3.00(L) 3.80 - 4.80 M/mcL LAB HEMETOLOGY METHOD 07/22/2024 3:32 AM [facility] Hemoglobin 7.2(L) 11.5 - 16.0 g/dL LAB HEMETOLOGY METHOD 07/22/2024 3:32 AM [facility] Hematocrit 24.3(L) 35.0 - 47.0 % LAB HEMETOLOGY METHOD 07/22/2024 3:32 AM [facility] MCV 80.5 79.0 - 98.0 FL LAB HEMETOLOGY METHOD 07/22/2024 3:32 AM [facility] MCH 23.8(L) 27.0 - 32.0 pcg LAB HEMETOLOGY METHOD 07/22/2024 3:32 AM [facility] MCHC 29.6(L) 32.0 - 37.0 g/dL LAB HEMETOLOGY METHOD 07/22/2024 3:32 AM [facility] RDW 23.6(H) 11.0 - 15.0 % LAB HEMETOLOGY METHOD 07/22/2024 3:32 AM [facility] Platelets 169 130 - 400 K/mcL LAB HEMETOLOGY METHOD 07/22/2024 3:32 AM [facility] MPV 9.7 7.0 - 11.0 FL LAB HEMETOLOGY METHOD 07/22/2024 3:32 AM [facility] NRBC 0.0 <1.0 % LAB HEMETOLOGY METHOD 07/22/2024 3:32 AM [facility] NRBC Absolute 0.00 <0.10 K/mcL LAB HEMETOLOGY METHOD 07/22/2024 3:32 AM [facility] Neutrophils Relative 95.2 % LAB HEMETOLOGY METHOD 07/22/2024 3:32 AM [facility] Lymphocytes Relative 3.3 % LAB HEMETOLOGY METHOD 07/22/2024 3:32 AM [facility] Monocytes Relative 0.7 % LAB HEMETOLOGY METHOD 07/22/2024 3:32 AM [facility] Eosinophils Relative 0.0 % LAB HEMETOLOGY METHOD 07/22/2024 3:32 AM [facility] Basophils Relative 0.1 % LAB HEMETOLOGY METHOD 07/22/2024 3:32 AM [facility] Immature Granulocytes Relative 0.7 % LAB HEMETOLOGY METHOD 07/22/2024 3:32 AM [facility] Neutrophils Absolute 9.13(H) 1.50 - 7.00 K/mcL LAB HEMETOLOGY METHOD 07/22/2024 3:32 AM [facility] Lymphocytes Absolute 0.32(L) 1.00 - 5.00 K/mcL LAB HEMETOLOGY METHOD 07/22/2024 3:32 AM [facility] Monocytes Absolute 0.07(L) 0.20 - 1.00 K/mcL LAB HEMETOLOGY METHOD 07/22/2024 3:32 AM EST [facility] Eosinophils Absolute 0.00 0.00 - 0.50 K/[facility] LAB HEMETOLOGY METHOD 07/22/2024 3:32 AM [facility] Basophils Absolute 0.01 0.00 - 0.20 K/[facility] LAB HEMETOLOGY METHOD 07/22/2024 3:32 AM EST [facility] Immature Granulocytes Absolute 0.07(H) 0.00 - 0.03 K/[facility] LAB HEMETOLOGY METHOD 07/22/2024 3:32 AM [facility] Blood Venous blood specimen / Unknown Venipuncture / Unknown 07/22/2024 3:11 AM EST 07/22/2024 3:23 AM EST [facility] LAB BLOOD ORDERABLES Final R esult [facility] [address] [place] [address], * (ABNORMAL) Basic metabolic panel (07/22/2024 3:11 AM EST) Sodium 132(L) 133 - 145 mmol/L LAB CHEMISTRY METHOD 07/22/2024 4:20 AM [facility] Potassium 5.0 3.5 - 5.5 mmol/L LAB CHEMISTRY METHOD 07/22/2024 4:20 AM [facility] Chloride 95(L) 96 - 110 mmol/L LAB CHEMISTRY METHOD 07/22/2024 4:20 AM [facility] CO2 27 21 - 32 mmol/L LAB CHEMISTRY METHOD 07/22/2024 4:20 AM [facility] Anion Gap 10 3 - 11 LAB CHEMISTRY METHOD 07/22/2024 4:20 AM [facility] Glucose 264(H) 70 - 100 mg/dL LAB CHEMISTRY METHOD 07/22/2024 4:20 AM [facility] BUN 40(H) 5 - 25 mg/dL LAB CHEMISTRY METHOD 07/22/2024 4:20 AM [facility] Creatinine 2.87(H) 0.50 - 1.10 mg/dL LAB CHEMISTRY METHOD 07/22/2024 4:20 AM [facility] eGFR 16(L) >=60 mL/min/1. 73m2 LAB CHEMISTRY METHOD 07/22/2024 4:20 AM [facility] Comment:Calculation based on the??Chronic Kidney Disease Epidemiology Collaboration (CKD-EPI) equation refit??without adjustment for race. BUN/Creatinine Ratio 13.9 LAB CHEMISTRY METHOD 07/22/2024 4:20 AM [facility] Calcium 7.4(L) 8.5 - 10.5 mg/dL LAB CHEMISTRY METHOD 07/22/2024 4:20 AM [facility] Blood Venous blood specimen / Unknown Venipuncture / Unknown 07/22/2024 3:11 AM EST 07/22/2024 4:20 AM EST Lencho Stuart MD LAB BLOOD ORDERABLES Final R esult [facility] [address] [place] [address], * (ABNORMAL) Anti-Xa - Every 6 Hours (07/22/2024 3:09 AM EST) Heparin Anti-Xa 0.26(L) 0.30 - 0.70 I Unit/mL LAB COAGULATION METHOD 07/22/2024 3:33 AM [facility] Blood Venous blood specimen / Unknown Venipuncture / Unknown 07/22/2024 3:09 AM EST 07/22/2024 3:23 AM EST [facility] - 07/22/2024 3:33 AM EST Therapeutic range listed is for Unfractionated Heparin. LMW Heparin therapeutic range: 0.50-1.20 IU/mL us Lencho Stuart MD LAB BLOOD ORDERABLES Final R esult Performing Organization Address [facility]/ZIP Co de Phone Number [facility] [address] [place] [address], [place] [phone] * (ABNORMAL) POCT Glucose, blood (07/21/2024 8:10 PM EST) Glucose POCT 172(H) 70 - 100 mg/dL 07/21/2024 8:11 PM EST [facility] Blood Capillary blood specimen / Unknown 07/21/2024 8:10 PM EST 07/21/2024 8:12 PM EST us Lencho Stuart MD LAB POINT OF CARE TE ST DOCKED DEVICE UNSOLICITED RESULTS Final Result Performing Organization Address [facility] Co de Phone Number [facility] [address] [place] [address], [place] [phone] * (ABNORMAL) Heparin and low molecular weight anti Xa level (07/21/2024 8:02 PM EST) Heparin Anti-Xa 0.27(L) 0.30 - 0.70 I Unit/mL LAB COAGULATION METHOD 07/21/2024 8:37 PM EST [facility] Blood Venous blood specimen / Unknown Venipuncture / Unknown 07/21/2024 8:02 PM EST 07/21/2024 8:26 PM EST Narrative [facility] - 07/21/2024 8:37 PM EST Therapeutic range listed is for Unfractionated Heparin. LMW Heparin therapeutic range: 0.50-1.20 IU/mL us Lencho Stuart MD LAB BLOOD ORDERABLES Final R esult Performing Organization Address City/[facility]/ZIP Co de Phone Number [facility] [address] [place] [address], [place] [phone] * (ABNORMAL) POCT Glucose, blood (07/21/2024 5:04 PM EST) Glucose POCT 175(H) 70 - 100 mg/dL 07/21/2024 5:05 PM EST [facility] Blood Capillary blood specimen / Unknown 07/21/2024 5:04 PM EST 07/21/2024 5:06 PM EST us Lencho Stuart MD LAB POINT OF CARE TE ST DOCKED DEVICE UNSOLICITED RESULTS Final Result Performing Organization Address [facility]/ZIP Co de Phone Number [facility] [address] [place] [address], [place] [phone] * POCT Glucose, blood (07/21/2024 1:57 PM EST) Glucose POCT 96 70 - 100 mg/dL 07/21/2024 1:58 PM EST [facility] Blood Capillary blood specimen / Unknown 07/21/2024 1:57 PM EST 07/21/2024 1:59 PM EST us Lencho Stuart MD LAB POINT OF CARE TE ST DOCKED DEVICE UNSOLICITED RESULTS Final Result [facility] [address] [place] [address], [place] [phone] * (ABNORMAL) Complete blood count (07/21/2024 8:55 AM EST) WBC 18.9(H) 4.8 - 10.8 K/[facility] LAB HEMETOLOGY METHOD 07/21/2024 9:21 AM EST [facility] RBC 3.00(L) 3.80 - 4.80 M/mcL LAB HEMETOLOGY METHOD 07/21/2024 9:21 AM [facility] Hemoglobin 7.3(L) 11.5 - 16.0 g/dL LAB HEMETOLOGY METHOD 07/21/2024 9:21 AM [facility] Hematocrit 23.7(L) 35.0 - 47.0 % LAB HEMETOLOGY METHOD 07/21/2024 9:21 AM [facility] MCV 80.3 79.0 - 98.0 FL LAB HEMETOLOGY METHOD 07/21/2024 9:21 AM [facility] MCH 24.7(L) 27.0 - 32.0 pcg LAB HEMETOLOGY METHOD 07/21/2024 9:21 AM [facility] MCHC 30.8(L) 32.0 - 37.0 g/dL LAB HEMETOLOGY METHOD 07/21/2024 9:21 AM [facility] RDW 23.7(H) 11.0 - 15.0 % LAB HEMETOLOGY METHOD 07/21/2024 9:21 AM [facility] Platelets 195 130 - 400 K/mcL LAB HEMETOLOGY METHOD 07/21/2024 9:21 AM [facility] MPV 10.2 7.0 - 11.0 FL LAB HEMETOLOGY METHOD 07/21/2024 9:21 AM [facility] NRBC 0.0 <1.0 % LAB HEMETOLOGY METHOD 07/21/2024 9:21 AM [facility] NRBC Absolute 0.00 <0.10 K/mcL LAB HEMETOLOGY METHOD 07/21/2024 9:21 AM [facility] Blood Venous blood specimen / Unknown Venipuncture / Unknown 07/21/2024 8:55 AM EST 07/21/2024 9:11 AM EST Lencho Stuart MD LAB BLOOD ORDERABLES Final R esult [facility] [address] [place] [address], * (ABNORMAL) Basic metabolic panel (07/21/2024 8:55 AM EST) Sodium 130(L) 133 - 145 mmol/L LAB CHEMISTRY METHOD 07/21/2024 9:50 AM EST [facility] Potassium 4.8 3.5 - 5.5 mmol/L LAB CHEMISTRY METHOD 07/21/2024 9:50 AM [facility] Chloride 92(L) 96 - 110 mmol/L LAB CHEMISTRY METHOD 07/21/2024 9:50 AM [facility] CO2 29 21 - 32 mmol/L LAB CHEMISTRY METHOD 07/21/2024 9:50 AM EST [facility] Anion Gap 9 3 - 11 LAB CHEMISTRY METHOD 07/21/2024 9:50 AM [facility] Glucose 142(H) 70 - 100 mg/dL LAB CHEMISTRY METHOD 07/21/2024 9:50 AM [facility] BUN 63(H) 5 - 25 mg/dL LAB CHEMISTRY METHOD 07/21/2024 9:50 AM [facility] Creatinine 5.05(H) 0.50 - 1.10 mg/dL LAB CHEMISTRY METHOD 07/21/2024 9:50 AM [facility] eGFR 8(L) >=60 mL/min/1. 73m2 LAB CHEMISTRY METHOD 07/21/2024 9:50 AM [facility] Comment:Calculation based on the??Chronic Kidney Disease Epidemiology Collaboration (CKD-EPI) equation refit??without adjustment for race. BUN/Creatinine Ratio 12.5 LAB CHEMISTRY METHOD 07/21/2024 9:50 AM [facility] Calcium 7.6(L) 8.5 - 10.5 mg/dL LAB CHEMISTRY METHOD 07/21/2024 9:50 AM EST [facility] Blood Venous blood specimen / Unknown Venipuncture / Unknown 07/21/2024 8:55 AM EST 07/21/2024 9:10 AM EST us Lencho Stuart MD LAB BLOOD ORDERABLES Final R esult Performing Organization Address City/[facility]/ZIP Co de Phone Number [facility] [address] [place] [address], [place] [phone] * (ABNORMAL) POCT Glucose, blood (07/21/2024 8:03 AM EST) Glucose POCT 159(H) 70 - 100 mg/dL 07/21/2024 8:04 AM EST [facility] Blood Capillary blood specimen / Unknown 07/21/2024 8:03 AM EST 07/21/2024 8:05 AM EST us Lencho Stuart MD LAB POINT OF CARE TE ST DOCKED DEVICE UNSOLICITED RESULTS Final Result Performing Organization Address [facility] Co de Phone Number [facility] [address] [place] [address], [place] [phone] * SST tube (07/21/2024 5:41 AM EST) Extra Tube Hold for add-ons. 07/21/2024 9:01 AM EST [facility] Comment:Auto resulted. Blood Venous blood specimen / Unknown 07/21/2024 5:41 AM EST 07/21/2024 7:02 AM EST us Lencho Stuart MD LAB BLOOD ORDERABLES Final R esult Performing Organization Address City/[facility]/ZIP Co de Phone Number [facility] [address] [place] [address], [place] [phone] * (ABNORMAL) CBC - Every 3 Days (07/21/2024 5:12 AM EST) [facility] WBC 18.8(H) 4.8 - 10.8 K/mcL LAB HEMETOLOGY METHOD 07/21/2024 7:22 AM [facility] RBC 2.90(L) 3.80 - 4.80 M/mcL LAB HEMETOLOGY METHOD 07/21/2024 7:22 AM [facility] Hemoglobin 7.3(L) 11.5 - 16.0 g/dL LAB HEMETOLOGY METHOD 07/21/2024 7:22 AM [facility] Hematocrit 23.6(L) 35.0 - 47.0 % LAB HEMETOLOGY METHOD 07/21/2024 7:22 AM [facility] MCV 81.1 79.0 - 98.0 FL LAB HEMETOLOGY METHOD 07/21/2024 7:22 AM [facility] MCH 25.1(L) 27.0 - 32.0 pcg LAB HEMETOLOGY METHOD 07/21/2024 7:22 AM [facility] MCHC 30.9(L) 32.0 - 37.0 g/dL LAB HEMETOLOGY METHOD 07/21/2024 7:22 AM [facility] RDW 23.7(H) 11.0 - 15.0 % LAB HEMETOLOGY METHOD 07/21/2024 7:22 AM [facility] Platelets 200 130 - 400 K/mcL LAB HEMETOLOGY METHOD 07/21/2024 7:22 AM [facility] MPV 10.5 7.0 - 11.0 FL LAB HEMETOLOGY METHOD 07/21/2024 7:22 AM [facility] NRBC 0.0 <1.0 % LAB HEMETOLOGY METHOD 07/21/2024 7:22 AM EST [facility] NRBC Absolute 0.00 <0.10 K/[facility] HEMETOLOGY METHOD 07/21/2024 7:22 AM EST [facility] Blood Venous blood specimen / Unknown Venipuncture / Unknown 07/21/2024 5:12 AM EST 07/21/2024 6:58 AM EST us Lencho Stuart MD LAB BLOOD ORDERABLES Final R esult Performing Organization Address [facility] Co de Phone Number [facility] [address] [place] [address], [place] [phone] * (ABNORMAL) POCT Glucose, blood (07/21/2024 2:47 AM EST) Glucose POCT 144(H) 70 - 100 mg/dL 07/21/2024 2:48 AM EST [facility] Blood Capillary blood specimen / Unknown 07/21/2024 2:47 AM EST 07/21/2024 2:49 AM EST us Lencho Stuart MD LAB POINT OF CARE TE ST DOCKED DEVICE UNSOLICITED RESULTS Final Result Performing Organization Address [facility] Co de Phone Number [facility] [address] [place] [address], [place] [phone] * (ABNORMAL) POCT Glucose, blood (07/20/2024 8:11 PM EST) Glucose POCT 140(H) 70 - 100 mg/dL 07/20/2024 8:12 PM EST [facility] Blood Capillary blood specimen / Unknown 07/20/2024 8:11 PM EST 07/20/2024 8:13 PM EST us Lencho Stuart MD LAB POINT OF CARE TE ST DOCKED DEVICE UNSOLICITED RESULTS Final Result Performing Organization Address City/[facility]/ZIP Co de Phone Number [facility] [address] [place] [address], [place] [phone] * (ABNORMAL) Anti-Xa - Every 6 Hours (07/20/2024 7:45 PM EST) Heparin Anti-Xa <0.04(L) 0.30 - 0.70 I Unit/mL LAB COAGULATION METHOD 07/20/2024 9:02 PM EST [facility] Blood Venous blood specimen / Unknown Venipuncture / Unknown 07/20/2024 7:45 PM EST 07/20/2024 8:01 PM EST Narrative [facility] - 07/20/2024 9:02 PM EST Therapeutic range listed is for Unfractionated Heparin. LMW Heparin therapeutic range: 0.50-1.20 IU/mL us Lencho Stuart MD LAB BLOOD ORDERABLES Final R esult Performing Organization Address [facility]/ZIP Co de Phone Number [facility] [address] [place] [address], [place] [phone] * (ABNORMAL) POCT Glucose, blood (07/20/2024 4:21 PM EST) [facility] Glucose POCT 167(H) 70 - 100 mg/dL 07/20/2024 4:23 PM EST [facility] Blood Capillary blood specimen / Unknown 07/20/2024 4:21 PM EST 07/20/2024 4:24 PM EST us Lencho Stuart MD LAB POINT OF CARE TE ST DOCKED DEVICE UNSOLICITED RESULTS Final Result Performing Organization Address [facility]/ZIP Co de Phone Number [facility] [address] [place] [address], [place] [phone] * Activated Partial Thromboplastin Time - STAT (07/20/2024 2:30 PM EST) [facility] aPTT 30.0 24.1 - 39.3 sec LAB COAGULATION METHOD 07/20/2024 3:06 PM EST [facility] Blood Venous blood specimen / Unknown Venipuncture / Unknown 07/20/2024 2:30 PM EST 07/20/2024 2:52 PM EST us Lencho Stuart MD LAB BLOOD ORDERABLES Final R esult Performing Organization Address City/[facility]/ZIP Co de Phone Number [facility] [address] [place] [address], [place] [phone] * (ABNORMAL) Prothrombin Time with INR - STAT (07/20/2024 2:30 PM EST) [facility] Protime 17.6(H) 10.6 - 13.9 sec LAB COAGULATION METHOD 07/20/2024 3:06 PM EST [facility] INR 1.4 LAB COAGULATION METHOD 07/20/2024 3:06 PM EST [facility] Blood Venous blood specimen / Unknown Venipuncture / Unknown 07/20/2024 2:30 PM EST 07/20/2024 2:52 PM EST us Lencho Stuart MD LAB BLOOD ORDERABLES Final R esult Performing Organization Address City/[facility]/ZIP Co de Phone Number [facility] [address] [place] [address], [place] [phone] * (ABNORMAL) POCT Glucose, blood (07/20/2024 11:23 AM EST) [facility] Glucose POCT 139(H) 70 - 100 mg/dL 07/20/2024 11:24 AM EST [facility] Blood Capillary blood specimen / Unknown 07/20/2024 11:23 AM EST 07/20/2024 11:26 AM EST [facility] LAB POINT OF CARE TE ST DOCKED DEVICE UNSOLICITED RESULTS Final Result [facility] [address] [place] [address], [place] [phone] * (ABNORMAL) POCT Glucose, blood (07/20/2024 8:20 AM EST) Pathologist [facility] Glucose POCT 132(H) 70 - 100 mg/dL 07/20/2024 8:20 AM EST [facility] Blood Capillary blood specimen / Unknown 07/20/2024 8:20 AM EST 07/20/2024 8:21 AM EST [facility] LAB POINT OF CARE TE ST DOCKED DEVICE UNSOLICITED RESULTS Final Result Performing Organization Address City/[facility]/ZIP Co de Phone Number [facility] [address] [place] [address], [place] [phone] * (ABNORMAL) CBC auto differential (07/20/2024 5:46 AM EST) [facility] WBC 20.9(H) 4.8 - 10.8 K/mcL LAB HEMETOLOGY METHOD 07/20/2024 7:07 AM [facility] RBC 3.00(L) 3.80 - 4.80 M/mcL LAB HEMETOLOGY METHOD 07/20/2024 7:07 AM [facility] Hemoglobin 7.3(L) 11.5 - 16.0 g/dL LAB HEMETOLOGY METHOD 07/20/2024 7:07 AM [facility] Hematocrit 23.6(L) 35.0 - 47.0 % LAB HEMETOLOGY METHOD 07/20/2024 7:07 AM [facility] MCV 77.9(L) 79.0 - 98.0 FL LAB HEMETOLOGY METHOD 07/20/2024 7:07 AM [facility] MCH 24.1(L) 27.0 - 32.0 pcg LAB HEMETOLOGY METHOD 07/20/2024 7:07 AM [facility] MCHC 30.9(L) 32.0 - 37.0 g/dL LAB HEMETOLOGY METHOD 07/20/2024 7:07 AM [facility] RDW 23.9(H) 11.0 - 15.0 % LAB HEMETOLOGY METHOD 07/20/2024 7:07 AM [facility] Platelets 217 130 - 400 K/mcL LAB HEMETOLOGY METHOD 07/20/2024 7:07 AM [facility] MPV 9.8 7.0 - 11.0 FL LAB HEMETOLOGY METHOD 07/20/2024 7:07 AM [facility] NRBC 0.0 <1.0 % LAB HEMETOLOGY METHOD 07/20/2024 7:07 AM [facility] NRBC Absolute 0.00 <0.10 K/mcL LAB HEMETOLOGY METHOD 07/20/2024 7:07 AM [facility] Neutrophils Relative 86.5 % LAB HEMETOLOGY METHOD 07/20/2024 7:07 AM [facility] Lymphocytes Relative 3.8 % LAB HEMETOLOGY METHOD 07/20/2024 7:07 AM [facility] Monocytes Relative 5.5 % LAB HEMETOLOGY METHOD 07/20/2024 7:07 AM [facility] Eosinophils Relative 2.7 % LAB HEMETOLOGY METHOD 07/20/2024 7:07 AM [facility] Basophils Relative 0.2 % LAB HEMETOLOGY METHOD 07/20/2024 7:07 AM [facility] Immature Granulocytes Relative 1.3 % LAB HEMETOLOGY METHOD 07/20/2024 7:07 AM EST [facility] Neutrophils Absolute 18.10(H) 1.50 - 7.00 K/mcL LAB HEMETOLOGY METHOD 07/20/2024 7:07 AM EST [facility] Lymphocytes Absolute 0.80(L) 1.00 - 5.00 K/mcL LAB HEMETOLOGY METHOD 07/20/2024 7:07 AM [facility] Monocytes Absolute 1.16(H) 0.20 - 1.00 K/mcL LAB HEMETOLOGY METHOD 07/20/2024 7:07 AM [facility] Eosinophils Absolute 0.56(H) 0.00 - 0.50 K/mcL LAB HEMETOLOGY METHOD 07/20/2024 7:07 AM [facility] Basophils Absolute 0.04 0.00 - 0.20 K/mcL LAB HEMETOLOGY METHOD 07/20/2024 7:07 AM [facility] Immature Granulocytes Absolute 0.27(H) 0.00 - 0.03 K/mcL LAB HEMETOLOGY METHOD 07/20/2024 7:07 AM [facility] Blood Venous blood specimen / Unknown Venipuncture / Unknown 07/20/2024 5:46 AM EST 07/20/2024 6:38 AM EST us [facility] LAB BLOOD ORDERABLES Final R esult [facility] [address] [place] [address], * (ABNORMAL) CBC - Every 3 Days (07/20/2024 5:46 AM EST) WBC 20.9(H) 4.8 - 10.8 K/mcL LAB HEMETOLOGY METHOD 07/20/2024 7:07 AM EST [facility] RBC 3.00(L) 3.80 - 4.80 M/mcL LAB HEMETOLOGY METHOD 07/20/2024 7:07 AM [facility] Hemoglobin 7.3(L) 11.5 - 16.0 g/dL LAB HEMETOLOGY METHOD 07/20/2024 7:07 AM [facility] Hematocrit 23.6(L) 35.0 - 47.0 % LAB HEMETOLOGY METHOD 07/20/2024 7:07 AM [facility] MCV 77.9(L) 79.0 - 98.0 FL LAB HEMETOLOGY METHOD 07/20/2024 7:07 AM [facility] MCH 24.1(L) 27.0 - 32.0 pcg LAB HEMETOLOGY METHOD 07/20/2024 7:07 AM [facility] MCHC 30.9(L) 32.0 - 37.0 g/dL LAB HEMETOLOGY METHOD 07/20/2024 7:07 AM [facility] RDW 23.9(H) 11.0 - 15.0 % LAB HEMETOLOGY METHOD 07/20/2024 7:07 AM [facility] Platelets 217 130 - 400 K/mcL LAB HEMETOLOGY METHOD 07/20/2024 7:07 AM [facility] MPV 9.8 7.0 - 11.0 FL LAB HEMETOLOGY METHOD 07/20/2024 7:07 AM [facility] NRBC 0.0 <1.0 % LAB HEMETOLOGY METHOD 07/20/2024 7:07 AM [facility] NRBC Absolute 0.00 <0.10 K/mcL LAB HEMETOLOGY METHOD 07/20/2024 7:07 AM [facility] Blood Venous blood specimen / Unknown Venipuncture / Unknown 07/20/2024 5:46 AM EST 07/20/2024 6:38 AM EST Kwesi Guido MD LAB BLOOD ORDERABLES F inal Result [facility] [address] [place] [address], [place] [phone] * Heparin and low molecular weight anti Xa level (07/20/2024 5:46 AM EST) Pathologist [facility] Heparin Anti-Xa 0.36 0.30 - 0.70 I Unit/mL LAB COAGULATION METHOD 07/20/2024 7:15 AM EST [facility] Blood Venous blood specimen / Unknown Venipuncture / Unknown 07/20/2024 5:46 AM EST 07/20/2024 6:40 AM EST Narrative [facility] - 07/20/2024 7:15 AM EST Therapeutic range listed is for Unfractionated Heparin. LMW Heparin therapeutic range: 0.50-1.20 IU/mL Lencho Stuart MD LAB BLOOD ORDERABLES Final R esult Performing Organization Address City/[facility]/ZIP Co de Phone Number [facility] [address] [place] [address], [place] [phone] * (ABNORMAL) Basic metabolic panel (07/20/2024 5:46 AM EST) Pathologist [facility] Sodium 132(L) 133 - 145 mmol/L LAB CHEMISTRY METHOD 07/20/2024 8:03 AM [facility] Potassium 4.2 3.5 - 5.5 mmol/L LAB CHEMISTRY METHOD 07/20/2024 8:03 AM [facility] Chloride 95(L) 96 - 110 mmol/L LAB CHEMISTRY METHOD 07/20/2024 8:03 AM [facility] CO2 29 21 - 32 mmol/L LAB CHEMISTRY METHOD 07/20/2024 8:03 AM [facility] Anion Gap 8 3 - 11 LAB CHEMISTRY METHOD 07/20/2024 8:03 AM [facility] Glucose 113(H) 70 - 100 mg/dL LAB CHEMISTRY METHOD 07/20/2024 8:03 AM [facility] BUN 41(H) 5 - 25 mg/dL LAB CHEMISTRY METHOD 07/20/2024 8:03 AM [facility] Creatinine 3.68(H) 0.50 - 1.10 mg/dL LAB CHEMISTRY METHOD 07/20/2024 8:03 AM [facility] eGFR 12(L) >=60 mL/min/1. 73m2 LAB CHEMISTRY METHOD 07/20/2024 8:03 AM [facility] Comment:Calculation based on the??Chronic Kidney Disease Epidemiology Collaboration (CKD-EPI) equation refit??without adjustment for race. BUN/Creatinine Ratio 11.1 LAB CHEMISTRY METHOD 07/20/2024 8:03 AM [facility] Calcium 7.3(L) 8.5 - 10.5 mg/dL LAB CHEMISTRY METHOD 07/20/2024 8:03 AM [facility] Blood Venous blood specimen / Unknown Venipuncture / Unknown 07/20/2024 5:46 AM EST 07/20/2024 6:38 AM EST Estdimas Stuart MD LAB BLOOD ORDERABLES Final R esult [facility] [address] [place] [address], * (ABNORMAL) POCT Glucose, blood (07/19/2024 8:18 PM EST) Glucose POCT 146(H) 70 - 100 mg/dL 07/19/2024 8:18 PM [facility] Blood Capillary blood specimen / Unknown 07/19/2024 8:18 PM EST 07/19/2024 8:19 PM EST Lencho Stuart MD LAB POINT OF CARE TE ST DOCKED DEVICE UNSOLICITED RESULTS Final Result [facility] [address] [place] [address], [place] [phone] * (ABNORMAL) POCT Glucose, blood (07/19/2024 7:29 PM EST) Glucose POCT 152(H) 70 - 100 mg/dL 07/19/2024 7:30 PM EST [facility] Blood Capillary blood specimen / Unknown 07/19/2024 7:29 PM EST 07/19/2024 7:31 PM EST Lencho Stuart MD LAB POINT OF CARE TE ST DOCKED DEVICE UNSOLICITED RESULTS Final Result Performing Organization Address [facility]/ZIP Co de Phone Number [facility] [address] [place] [address], [place] [phone] * (ABNORMAL) POCT Glucose, blood (07/19/2024 4:01 PM EST) Glucose POCT 139(H) 70 - 100 mg/dL 07/19/2024 4:02 PM EST [facility] Blood Capillary blood specimen / Unknown 07/19/2024 4:01 PM EST 07/19/2024 4:03 PM EST Lencho Stuart MD LAB POINT OF CARE TE ST DOCKED DEVICE UNSOLICITED RESULTS Final Result [facility] [address] [place] [address], [place] [phone] * (ABNORMAL) Hemoglobin and hematocrit (07/19/2024 2:31 PM EST) Hemoglobin 7.6(L) 11.5 - 16.0 g/dL LAB HEMETOLOGY METHOD 07/19/2024 3:11 PM EST [facility] Hematocrit 23.8(L) 35.0 - 47.0 % LAB HEMETOLOGY METHOD 07/19/2024 3:11 PM [facility] Blood Venous blood specimen / Unknown Venipuncture / Unknown 07/19/2024 2:31 PM EST 07/19/2024 3:05 PM EST Lencho Stuart MD LAB BLOOD ORDERABLES Final R esult [facility] [address] [place] [address], [place] [phone] * Creatinine, urine, random (07/19/2024 12:01 PM EST) Creatinine, Urine 41.0 mg/dL LAB CHEMISTRY METHOD 07/19/2024 1:17 PM [facility] Urine Urine specimen obtained by clean catch procedure / Unknown Non-blood Collection / Unknown 07/19/2024 12:01 PM EST 07/19/2024 12:30 PM EST Miguel Quiles MD LAB URINE ORDERABLES Final Res ult [facility] [address] [place] [address], [place] [phone] * (ABNORMAL) Microalbumin creatinine urine ratio (07/19/2024 12:01 PM EST) Creatinine, Urine 41.0 mg/dL LAB CHEMISTRY METHOD 07/19/2024 1:46 PM [facility] Microalb, Ur 1,480.0(H ) 0.0 - 29.0 mg/L LAB CHEMISTRY METHOD 07/19/2024 1:46 PM [facility] Microalb/Crea t Ratio 3,610(H) <30 mg/g creat LAB CHEMISTRY METHOD 07/19/2024 1:46 PM EST [facility] Urine Urine specimen obtained by clean catch procedure / Unknown Non-blood Collection / Unknown 07/19/2024 12:01 PM EST 07/19/2024 12:30 PM EST us Miguel Quiles MD LAB URINE ORDERABLES Final Res ult Performing Organization Address [facility] Co de Phone Number [facility] [address] [place] [address], [place] [phone] * (ABNORMAL) POCT Glucose, blood (07/19/2024 11:32 AM EST) Glucose POCT 132(H) 70 - 100 mg/dL 07/19/2024 11:33 AM EST [facility] Blood Capillary blood specimen / Unknown 07/19/2024 11:32 AM EST 07/19/2024 11:34 AM EST us Lencho Stuart MD LAB POINT OF CARE TE ST DOCKED DEVICE UNSOLICITED RESULTS Final Result Performing Organization Address [facility] Co de Phone Number [facility] [address] [place] [address], [place] [phone] * (ABNORMAL) POCT Glucose, blood (07/19/2024 9:07 AM EST) Glucose POCT 117(H) 70 - 100 mg/dL 07/19/2024 9:07 AM EST [facility] Blood Capillary blood specimen / Unknown 07/19/2024 9:07 AM EST 07/19/2024 9:09 AM EST us Lencho Stuart MD LAB POINT OF CARE TE ST DOCKED DEVICE UNSOLICITED RESULTS Final Result Performing Organization Address [facility]/ZIP Co de Phone Number [facility] [address] [place] [address], * (ABNORMAL) CBC auto differential (07/19/2024 7:55 AM EST) [facility] WBC 25.0(H) 4.8 - 10.8 K/mcL LAB HEMETOLOGY METHOD 07/19/2024 8:36 AM [facility] RBC 2.80(L) 3.80 - 4.80 M/mcL LAB HEMETOLOGY METHOD 07/19/2024 8:36 AM [facility] Hemoglobin 7.0(L) 11.5 - 16.0 g/dL LAB HEMETOLOGY METHOD 07/19/2024 8:36 AM [facility] Hematocrit 22.2(L) 35.0 - 47.0 % LAB HEMETOLOGY METHOD 07/19/2024 8:36 AM [facility] MCV 79.0 79.0 - 98.0 FL LAB HEMETOLOGY METHOD 07/19/2024 8:36 AM [facility] MCH 24.9(L) 27.0 - 32.0 pcg LAB HEMETOLOGY METHOD 07/19/2024 8:36 AM [facility] MCHC 31.5(L) 32.0 - 37.0 g/dL LAB HEMETOLOGY METHOD 07/19/2024 8:36 AM [facility] RDW 23.9(H) 11.0 - 15.0 % LAB HEMETOLOGY METHOD 07/19/2024 8:36 AM [facility] Platelets 218 130 - 400 K/mcL LAB HEMETOLOGY METHOD 07/19/2024 8:36 AM [facility] MPV 10.6 7.0 - 11.0 FL LAB HEMETOLOGY METHOD 07/19/2024 8:36 AM [facility] NRBC 0.0 <1.0 % LAB HEMETOLOGY METHOD 07/19/2024 8:36 AM [facility] NRBC Absolute 0.00 <0.10 K/mcL LAB HEMETOLOGY METHOD 07/19/2024 8:36 AM [facility] Neutrophils Relative 87.6 % LAB HEMETOLOGY METHOD 07/19/2024 8:36 AM [facility] Comment:This is an appended report. These results have been appended to a previously preliminary verified report. Lymphocytes Relative 3.0 % LAB HEMETOLOGY METHOD 07/19/2024 8:36 AM [facility] Comment:This is an appended report. These results have been appended to a previously preliminary verified report. Monocytes Relative 4.6 % LAB HEMETOLOGY METHOD 07/19/2024 8:36 AM [facility] Comment:This is an appended report. These results have been appended to a previously preliminary verified report. Eosinophils Relative 3.0 % LAB HEMETOLOGY METHOD 07/19/2024 8:36 AM [facility] Comment:This is an appended report. These results have been appended to a previously preliminary verified report. Basophils Relative 0.2 % LAB HEMETOLOGY METHOD 07/19/2024 8:36 AM [facility] Comment:This is an appended report. These results have been appended to a previously preliminary verified report. Immature Granulocytes Relative 1.6 % LAB HEMETOLOGY METHOD 07/19/2024 8:36 AM [facility] Comment:This is an appended report. These results have been appended to a previously preliminary verified report. Neutrophils Absolute 21.89(H) 1.50 - 7.00 K/mcL LAB HEMETOLOGY METHOD 07/19/2024 8:36 AM [facility] Comment:This is an appended report. These results have been appended to a previously preliminary verified report. Lymphocytes Absolute 0.76(L) 1.00 - 5.00 K/mcL LAB HEMETOLOGY METHOD 07/19/2024 8:36 AM EST [facility] Comment:This is an appended report. These results have been appended to a previously preliminary verified report. Monocytes Absolute 1.14(H) 0.20 - 1.00 K/[facility] LAB HEMETOLOGY METHOD 07/19/2024 8:36 AM EST [facility] Comment:This is an appended report. These results have been appended to a previously preliminary verified report. Eosinophils Absolute 0.76(H) 0.00 - 0.50 K/[facility] HEMETOLOGY METHOD 07/19/2024 8:36 AM EST [facility] Comment:This is an appended report. These results have been appended to a previously preliminary verified report. Basophils Absolute 0.05 0.00 - 0.20 K[facility] 07/19/2024 8:36 AM EST [facility] Comment:This is an appended report. These results have been appended to a previously preliminary verified report. Immature Granulocytes Absolute 0.40(H) 0.00 - 0.03 K[facility] 07/19/2024 8:36 AM EST [facility] Comment:This is an appended report. These results have been appended to a previously preliminary verified report. Blood Venous blood specimen / Unknown Venipuncture / Unknown 07/19/2024 7:55 AM EST 07/19/2024 7:55 AM EST us Estdimas Stuart MD LAB BLOOD ORDERABLES Final R esult [facility] [address] [place] [address], * (ABNORMAL) Parathyroid hormone related protein (07/19/2024 [...] analytical performance characteristics have been determined by [employer]. It has not been cleared or approved by FDA. This assay has been validated pursuant to the CLIA regulations and is used for clinical purposes. Test Performed at: [facility] [address] [place], [place] ??[phone] ? I Bethany GUERRERO, PhD, NINA Blood Venous blood specimen / Unknown Venipuncture / Unknown 07/19/2024 7:55 AM EST 07/19/2024 7:55 AM EST us Jesus Manuel HEDRICK LAB BLOOD ORDERABLES Final Resu lt [facility] [address] [place] [address] * (ABNORMAL) Anti-neutrophilic cytoplasmic antibody (07/19/2024 6:52 [...] ORDERABLES Final Res ult Performing Organization Address City/[facility]/ZIP Co de Phone Number [facility] [address] [place] [address], * Anti-Xa - Every 6 Hours (07/19/2024 6:52 AM EST) [facility] Heparin Anti-Xa 0.37 0.30 - 0.70 I Unit/mL LAB COAGULATION METHOD 07/19/2024 7:38 AM EST [facility] Blood Venous blood specimen / Unknown Venipuncture / Unknown 07/19/2024 6:52 AM EST 07/19/2024 7:21 AM EST [facility] - 07/19/2024 7:38 AM EST Therapeutic range listed is for Unfractionated Heparin. LMW Heparin therapeutic range: 0.50-1.20 IU/mL Estate Sade GUERRERO LAB BLOOD ORDERABLES Final R esult [facility] [address] [place] [address], * (ABNORMAL) Basic metabolic panel (07/19/2024 6:52 AM EST) [facility] Sodium 128(L) 133 - 145 mmol/L LAB CHEMISTRY METHOD 07/19/2024 8:56 AM [facility] Potassium 4.9 3.5 - 5.5 mmol/L LAB CHEMISTRY METHOD 07/19/2024 8:56 AM [facility] Chloride 93(L) 96 - 110 mmol/L LAB CHEMISTRY METHOD 07/19/2024 8:56 AM [facility] CO2 28 21 - 32 mmol/L LAB CHEMISTRY METHOD 07/19/2024 8:56 AM [facility] Anion Gap 7 3 - 11 LAB CHEMISTRY METHOD 07/19/2024 8:56 AM [facility] Glucose 170(H) 70 - 100 mg/dL LAB CHEMISTRY METHOD 07/19/2024 8:56 AM [facility] BUN 83(H) 5 - 25 mg/dL LAB CHEMISTRY METHOD 07/19/2024 8:56 AM EST [facility] Creatinine 5.96(H) 0.50 - 1.10 mg/dL LAB CHEMISTRY METHOD 07/19/2024 8:56 AM [facility] eGFR 7(L) >=60 mL/min/1. 73m2 LAB CHEMISTRY METHOD 07/19/2024 8:56 AM [facility] Comment:Calculation based on the??Chronic Kidney Disease Epidemiology Collaboration (CKD-EPI) equation refit??without adjustment for race. BUN/Creatinine Ratio 13.9 LAB CHEMISTRY METHOD 07/19/2024 8:56 AM [facility] Calcium 7.7(L) 8.5 - 10.5 mg/dL LAB CHEMISTRY METHOD 07/19/2024 8:56 AM [facility] Blood Venous blood specimen / Unknown Venipuncture / Unknown 07/19/2024 6:52 AM EST 07/19/2024 7:21 AM EST us Lencho Stuart MD LAB BLOOD ORDERABLES Final R esult [facility] [address] [place] [address], * (ABNORMAL) POCT Glucose, blood (07/18/2024 8:27 PM EST) Glucose POCT 193(H) 70 - 100 mg/dL 07/18/2024 8:27 PM EST [facility] Blood Capillary blood specimen / Unknown 07/18/2024 8:27 PM EST 07/18/2024 8:28 PM EST us Lencho Stuart MD LAB POINT OF CARE TE ST DOCKED DEVICE UNSOLICITED RESULTS Final Result [facility] [address] [place] [address], [place] [phone] * Anti-Xa - Every 6 Hours (07/18/2024 6:07 PM EST) [facility] Heparin Anti-Xa 0.42 0.30 - 0.70 I Unit/mL LAB COAGULATION METHOD 07/18/2024 7:21 PM EST [facility] Blood Venous blood specimen / Unknown Venipuncture / Unknown 07/18/2024 6:07 PM EST 07/18/2024 7:00 PM EST Narrative [facility] - 07/18/2024 7:21 PM EST Therapeutic range listed is for Unfractionated Heparin. LMW Heparin therapeutic range: 0.50-1.20 IU/mL us Kwesi Guido MD LAB BLOOD ORDERABLES F inal Result [facility] [address] [place] [address], [place] [phone] * (ABNORMAL) POCT Glucose, blood (07/18/2024 4:00 PM EST) [facility] Glucose POCT 210(H) 70 - 100 mg/dL 07/18/2024 4:01 PM EST [facility] Blood Capillary blood specimen / Unknown 07/18/2024 4:00 PM EST 07/18/2024 4:02 PM EST Lencho Stuart MD LAB POINT OF CARE TE ST DOCKED DEVICE UNSOLICITED RESULTS Final Result [facility] [address] [place] [address], [place] [phone] * Anti-Xa - Every 6 Hours (07/18/2024 12:43 PM EST) [facility] Heparin Anti-Xa 0.39 0.30 - 0.70 I Unit/mL LAB COAGULATION METHOD 07/18/2024 1:15 PM EST [facility] Blood Venous blood specimen / Unknown Venipuncture / Unknown 07/18/2024 12:43 PM EST 07/18/2024 12:49 PM EST Narrative [facility] - 07/18/2024 1:15 PM EST Therapeutic range listed is for Unfractionated Heparin. LMW Heparin therapeutic range: 0.50-1.20 IU/mL us Kwesi Guido MD LAB BLOOD ORDERABLES F inal Result [facility] [address] [place] [address], [place] [phone] * (ABNORMAL) POCT Glucose, blood (07/18/2024 11:17 AM EST) Glucose POCT 244(H) 70 - 100 mg/dL 07/18/2024 11:19 AM EST [facility] Blood Capillary blood specimen / Unknown 07/18/2024 11:17 AM EST 07/18/2024 11:21 AM EST Lencho Stuart MD LAB POINT OF CARE TE ST DOCKED DEVICE UNSOLICITED RESULTS Final Result [facility] [address] [place] [address], [place] [phone] * (ABNORMAL) POCT Glucose, blood (07/18/2024 7:54 AM EST) Glucose POCT 219(H) 70 - 100 mg/dL 07/18/2024 7:54 AM EST [facility] Blood Capillary blood specimen / Unknown 07/18/2024 7:54 AM EST 07/18/2024 7:56 AM EST Lencho Stuart MD LAB POINT OF CARE TE ST DOCKED DEVICE UNSOLICITED RESULTS Final Result Performing Organization Address City/[facility]/ZIP Co de Phone Number [facility] [address] [place] [address], [place] [phone] * Robertson urine culture tube (07/18/2024 6:10 AM EST) Extra Tube Hold for add-ons. 07/18/2024 8:01 AM EST [facility] Comment:Auto resulted. Urine Urine specimen obtained by clean catch procedure / Unknown 07/18/2024 6:10 AM EST 07/18/2024 6:37 AM EST Lencho Stuart MD LAB URINE ORDERABLES Final R esult Performing Organization Address City/[facility]/ZIP Co de Phone Number [facility] [address] [place] [address], [place] [phone] * (ABNORMAL) Urinalysis microscopic only (07/18/2024 6:09 AM EST) RBC, Urine 10(H) 0 - 4 /HPF 07/18/2024 7:53 AM [facility] WBC, Urine >100(H) 0 - 4 /HPF 07/18/2024 7:53 AM [facility] Squamous Epithelial, Urine 10 0 - 60 /LPF 07/18/2024 7:53 AM [facility] Non-Squamous Epithelial, Urine 2-5 Transitional epithelial cells. /LPF 07/18/2024 7:53 AM [facility] Bacteria, Urine Many(A) Negative /HPF 07/18/2024 7:53 AM [facility] Other Casts, Urine Rare Coarse Granular casts. /LPF 07/18/2024 7:53 AM [facility] Urine Indwelling urinary catheter / Unknown Non-blood Collection / Unknown 07/18/2024 6:09 AM EST 07/18/2024 6:36 AM EST us Kwesi Guido MD LAB URINE ORDERABLES F inal Result Performing Organization Address [facility] Co de Phone Number [facility] [address] [place] [address], * Anti-Xa - Every 6 Hours (07/18/2024 6:07 AM EST) Heparin Anti-Xa 0.34 0.30 - 0.70 I Unit/mL LAB COAGULATION METHOD 07/18/2024 7:02 AM EST [facility] Blood Venous blood specimen / Unknown 07/18/2024 6:07 AM EST 07/18/2024 6:34 AM EST Narrative [facility] - 07/18/2024 7:02 AM EST Therapeutic range listed is for Unfractionated Heparin. LMW Heparin therapeutic range: 0.50-1.20 IU/mL us Kwesi Guido MD LAB BLOOD ORDERABLES F inal Result Performing Organization Address City/[facility]/ZIP Co de Phone Number [facility] [address] [place] [address], * (ABNORMAL) CBC auto differential (07/18/2024 6:07 AM EST) WBC 25.5(H) 4.8 - 10.8 K/mcL LAB HEMETOLOGY METHOD 07/18/2024 7:23 AM EST [facility] RBC 3.20(L) 3.80 - 4.80 M/mcL LAB HEMETOLOGY METHOD 07/18/2024 7:23 AM EST [facility] Hemoglobin 7.8(L) 11.5 - 16.0 g/dL LAB HEMETOLOGY METHOD 07/18/2024 7:23 AM [facility] Hematocrit 24.9(L) 35.0 - 47.0 % LAB HEMETOLOGY METHOD 07/18/2024 7:23 AM [facility] MCV 77.6(L) 79.0 - 98.0 FL LAB HEMETOLOGY METHOD 07/18/2024 7:23 AM [facility] MCH 24.3(L) 27.0 - 32.0 pcg LAB HEMETOLOGY METHOD 07/18/2024 7:23 AM [facility] MCHC 31.3(L) 32.0 - 37.0 g/dL LAB HEMETOLOGY METHOD 07/18/2024 7:23 AM [facility] RDW 24.1(H) 11.0 - 15.0 % LAB HEMETOLOGY METHOD 07/18/2024 7:23 AM [facility] Platelets 242 130 - 400 K/mcL LAB HEMETOLOGY METHOD 07/18/2024 7:23 AM [facility] MPV 9.6 7.0 - 11.0 FL LAB HEMETOLOGY METHOD 07/18/2024 7:23 AM [facility] NRBC 0.0 <1.0 % LAB HEMETOLOGY METHOD 07/18/2024 7:23 AM [facility] NRBC Absolute 0.00 <0.10 K/mcL LAB HEMETOLOGY METHOD 07/18/2024 7:23 AM [facility] Neutrophils Relative 89.3 % LAB HEMETOLOGY METHOD 07/18/2024 7:23 AM [facility] Comment:This is an appended report. These results have been appended to a previously preliminary verified report. Lymphocytes Relative 2.8 % LAB HEMETOLOGY METHOD 07/18/2024 7:23 AM [facility] Comment:This is an appended report. These results have been appended to a previously preliminary verified report. Monocytes Relative 4.2 % LAB HEMETOLOGY METHOD 07/18/2024 7:23 AM [facility] Comment:This is an appended report. These results have been appended to a previously preliminary verified report. Eosinophils Relative 1.9 % LAB HEMETOLOGY METHOD 07/18/2024 7:23 AM [facility] Comment:This is an appended report. These results have been appended to a previously preliminary verified report. Basophils Relative 0.2 % LAB HEMETOLOGY METHOD 07/18/2024 7:23 AM [facility] Comment:This is an appended report. These results have been appended to a previously preliminary verified report. Immature Granulocytes Relative 1.6 % LAB HEMETOLOGY METHOD 07/18/2024 7:23 AM [facility] Comment:This is an appended report. These results have been appended to a previously preliminary verified report. Neutrophils Absolute 22.74(H) 1.50 - 7.00 K/mcL LAB HEMETOLOGY METHOD 07/18/2024 7:23 AM [facility] Comment:This is an appended report. These results have been appended to a previously preliminary verified report. Lymphocytes Absolute 0.72(L) 1.00 - 5.00 K/mcL LAB HEMETOLOGY METHOD 07/18/2024 7:23 AM [facility] Comment:This is an appended report. These results have been appended to a previously preliminary verified report. Monocytes Absolute 1.06(H) 0.20 - 1.00 K/mcL LAB HEMETOLOGY METHOD 07/18/2024 7:23 AM [facility] Comment:This is an appended report. These results have been appended to a previously preliminary verified report. Eosinophils Absolute 0.49 0.00 - 0.50 K/mcL LAB HEMETOLOGY METHOD 07/18/2024 7:23 AM [facility] Comment:This is an appended report. These results have been appended to a previously preliminary verified report. Basophils Absolute 0.04 0.00 - 0.20 K/mcL LAB HEMETOLOGY METHOD 07/18/2024 7:23 AM EST [facility] Comment:This is an appended report. These results have been appended to a previously preliminary verified report. Immature Granulocytes Absolute 0.41(H) 0.00 - 0.03 K/mcL LAB HEMETOLOGY METHOD 07/18/2024 7:23 AM EST [facility] Comment:This is an appended report. These results have been appended to a previously preliminary verified report. Blood Venous blood specimen / Unknown Venipuncture / Unknown 07/18/2024 6:07 AM EST 07/18/2024 7:16 AM EST us Kwesi Guido MD LAB BLOOD ORDERABLES F inal Result Performing Organization Address City/[facility]/ZIP Co de Phone Number [facility] [address] [place] [address], [place] [phone] * (ABNORMAL) Calcium, ionized (07/18/2024 6:07 AM EST) Calcium Ionized 4.28(L) 4.50 - 5.30 mg/dL 07/18/2024 6:46 AM EST [facility] Blood Venous blood specimen / Unknown 07/18/2024 6:07 AM EST 07/18/2024 6:33 AM EST us Kwesi Guido MD LAB BLOOD ORDERABLES F inal Result [facility] [address] [place] [address], [place] [phone] * (ABNORMAL) Basic metabolic panel (07/18/2024 6:07 AM EST) Sodium 132(L) 133 - 145 mmol/L LAB CHEMISTRY METHOD 07/18/2024 7:48 AM [facility] Potassium 4.4 3.5 - 5.5 mmol/L LAB CHEMISTRY METHOD 07/18/2024 7:48 AM [facility] Chloride 95(L) 96 - 110 mmol/L LAB CHEMISTRY METHOD 07/18/2024 7:48 AM [facility] CO2 27 21 - 32 mmol/L LAB CHEMISTRY METHOD 07/18/2024 7:48 AM [facility] Anion Gap 10 3 - 11 LAB CHEMISTRY METHOD 07/18/2024 7:48 AM [facility] Glucose 225(H) 70 - 100 mg/dL LAB CHEMISTRY METHOD 07/18/2024 7:48 AM [facility] BUN 67(H) 5 - 25 mg/dL LAB CHEMISTRY METHOD 07/18/2024 7:48 AM [facility] Creatinine 4.92(H) 0.50 - 1.10 mg/dL LAB CHEMISTRY METHOD 07/18/2024 7:48 AM [facility] eGFR 8(L) >=60 mL/min/1. 73m2 LAB CHEMISTRY METHOD 07/18/2024 7:48 AM [facility] Comment:Calculation based on the??Chronic Kidney Disease Epidemiology Collaboration (CKD-EPI) equation refit??without adjustment for race. BUN/Creatinine Ratio 13.6 LAB CHEMISTRY METHOD 07/18/2024 7:48 AM [facility] Calcium 7.5(L) 8.5 - 10.5 mg/dL LAB CHEMISTRY METHOD 07/18/2024 7:48 AM [facility] Blood Venous blood specimen / Unknown 07/18/2024 6:07 AM EST 07/18/2024 6:34 AM EST us Kwesi Guido MD LAB BLOOD ORDERABLES F inal Result [facility] [address] [place] [address], [place] [phone] * (ABNORMAL) Anti-Xa - Every 6 Hours (07/18/2024 12:19 AM EST) [facility] Heparin Anti-Xa 0.19(L) 0.30 - 0.70 I Unit/mL LAB COAGULATION METHOD 07/18/2024 12:48 AM EST [facility] Blood Venous blood specimen / Unknown Venipuncture / Unknown 07/18/2024 12:19 AM EST 07/18/2024 12:38 AM EST Narrative [facility] - 07/18/2024 12:48 AM EST Therapeutic range listed is for Unfractionated Heparin. LMW Heparin therapeutic range: 0.50-1.20 IU/mL us Kwesi Guido MD LAB BLOOD ORDERABLES F inal Result [facility] [address] [place] [address], [place] [phone] * (ABNORMAL) POCT Glucose, blood (07/17/2024 9:12 PM EST) [facility] Glucose POCT 240(H) 70 - 100 mg/dL 07/17/2024 9:13 PM EST [facility] Blood Capillary blood specimen / Unknown 07/17/2024 9:12 PM EST 07/17/2024 9:14 PM EST us Kwesi Guido MD LAB POINT OF C ARE TEST DOCKED DEVICE UNSOLICITED RESULTS Final Result [facility] [address] [place] [address], [place] [phone] * Anti-Xa - Every 6 Hours (07/17/2024 6:37 PM EST) Heparin Anti-Xa 0.30 0.30 - 0.70 I Unit/mL LAB COAGULATION METHOD 07/17/2024 7:18 PM EST [facility] Blood Venous blood specimen / Unknown Venipuncture / Unknown 07/17/2024 6:37 PM EST 07/17/2024 7:06 PM EST Narrative [facility] - 07/17/2024 7:18 PM EST Therapeutic range listed is for Unfractionated Heparin. LMW Heparin therapeutic range: 0.50-1.20 IU/mL us Kwesi Guido MD LAB BLOOD ORDERABLES F inal Result [facility] [address] [place] [address], [place] [phone] * (ABNORMAL) POCT Glucose, blood (07/17/2024 4:15 PM EST) [facility] Glucose POCT 238(H) 70 - 100 mg/dL 07/17/2024 4:16 PM EST [facility] Blood Capillary blood specimen / Unknown 07/17/2024 4:15 PM EST 07/17/2024 4:17 PM EST us Kwesi Guido MD LAB POINT OF C ARE TEST DOCKED DEVICE UNSOLICITED RESULTS Final Result [facility] [address] [place] [address], [place] [phone] * Anti-Xa - Every 6 Hours (07/17/2024 12:29 PM EST) [facility] Heparin Anti-Xa 0.37 0.30 - 0.70 I Unit/mL LAB COAGULATION METHOD 07/17/2024 1:11 PM EST [facility] Blood Venous blood specimen / Unknown Venipuncture / Unknown 07/17/2024 12:29 PM EST 07/17/2024 12:35 PM EST Narrative [facility] - 07/17/2024 1:11 PM EST Therapeutic range listed is for Unfractionated Heparin. LMW Heparin therapeutic range: 0.50-1.20 IU/mL us Kwesi Guido MD LAB BLOOD ORDERABLES F inal Result Performing Organization Address [facility]/ZIP Co de Phone Number [facility] [address] [place] [address], [place] [phone] * (ABNORMAL) POCT Glucose, blood (07/17/2024 11:19 AM EST) Glucose POCT 307(H) 70 - 100 mg/dL 07/17/2024 11:25 AM EST [facility] Blood Capillary blood specimen / Unknown 07/17/2024 11:19 AM EST 07/17/2024 11:26 AM EST us Kwesi Guido MD LAB POINT OF C ARE TEST DOCKED DEVICE UNSOLICITED RESULTS Final Result Performing Organization Address [facility] Co de Phone Number [facility] [address] [place] [address], [place] [phone] * (ABNORMAL) POCT Glucose, blood (07/17/2024 7:57 AM EST) Glucose POCT 258(H) 70 - 100 mg/dL 07/17/2024 7:58 AM EST [facility] Blood Capillary blood specimen / Unknown 07/17/2024 7:57 AM EST 07/17/2024 7:59 AM EST us Kwesi Guido MD LAB POINT OF C ARE TEST DOCKED DEVICE UNSOLICITED RESULTS Final Result Performing Organization Address City/[facility] Co de Phone Number [facility] [address] [place] [address], [place] [phone] * (ABNORMAL) Anti-Xa - Every 6 Hours (07/17/2024 6:30 AM EST) Pathologist [facility] Heparin Anti-Xa 0.20(L) 0.30 - 0.70 I Unit/mL LAB COAGULATION METHOD 07/17/2024 7:43 AM EST [facility] Blood Venous blood specimen / Unknown Venipuncture / Unknown 07/17/2024 6:30 AM EST 07/17/2024 7:06 AM EST Narrative [facility] - 07/17/2024 7:43 AM EST Therapeutic range listed is for Unfractionated Heparin. LMW Heparin therapeutic range: 0.50-1.20 IU/mL us Kwesi Guido MD LAB BLOOD ORDERABLES F inal Result [facility] [address] [place] [address], [place] [phone] * (ABNORMAL) CBC auto differential (07/17/2024 6:30 AM EST) [facility] WBC 23.0(H) 4.8 - 10.8 K/[facility] LAB HEMETOLOGY METHOD 07/17/2024 8:50 AM EST [facility] RBC 3.30(L) 3.80 - 4.80 M/[facility] LAB HEMETOLOGY METHOD 07/17/2024 8:50 AM EST [facility] Hemoglobin 8.0(L) 11.5 - 16.0 g/dL LAB HEMETOLOGY METHOD 07/17/2024 8:50 AM EST [facility] Hematocrit 25.6(L) 35.0 - 47.0 % LAB HEMETOLOGY METHOD 07/17/2024 8:50 AM EST [facility] MCV 78.5(L) 79.0 - 98.0 FL LAB HEMETOLOGY METHOD 07/17/2024 8:50 AM [facility] MCH 24.5(L) 27.0 - 32.0 pcg LAB HEMETOLOGY METHOD 07/17/2024 8:50 AM [facility] MCHC 31.3(L) 32.0 - 37.0 g/dL LAB HEMETOLOGY METHOD 07/17/2024 8:50 AM [facility] RDW 23.9(H) 11.0 - 15.0 % LAB HEMETOLOGY METHOD 07/17/2024 8:50 AM [facility] Platelets 252 130 - 400 K/mcL LAB HEMETOLOGY METHOD 07/17/2024 8:50 AM [facility] MPV 9.9 7.0 - 11.0 FL LAB HEMETOLOGY METHOD 07/17/2024 8:50 AM [facility] NRBC 0.0 <1.0 % LAB HEMETOLOGY METHOD 07/17/2024 8:50 AM [facility] NRBC Absolute 0.00 <0.10 K/mcL LAB HEMETOLOGY METHOD 07/17/2024 8:50 AM [facility] Neutrophils Relative 90.9 % LAB HEMETOLOGY METHOD 07/17/2024 8:50 AM [facility] Lymphocytes Relative 2.6 % LAB HEMETOLOGY METHOD 07/17/2024 8:50 AM [facility] Monocytes Relative 4.8 % LAB HEMETOLOGY METHOD 07/17/2024 8:50 AM [facility] Eosinophils Relative 0.5 % LAB HEMETOLOGY METHOD 07/17/2024 8:50 AM [facility] Basophils Relative 0.1 % LAB HEMETOLOGY METHOD 07/17/2024 8:50 AM [facility] Immature Granulocytes Relative 1.1 % LAB HEMETOLOGY METHOD 07/17/2024 8:50 AM EST [facility] Neutrophils Absolute 20.92(H) 1.50 - 7.00 K/[facility] LAB HEMETOLOGY METHOD 07/17/2024 8:50 AM EST [facility] Lymphocytes Absolute 0.60(L) 1.00 - 5.00 K/mcL LAB HEMETOLOGY METHOD 07/17/2024 8:50 AM EST [facility] Monocytes Absolute 1.11(H) 0.20 - 1.00 K/mcL LAB HEMETOLOGY METHOD 07/17/2024 8:50 AM EST [facility] Eosinophils Absolute 0.11 0.00 - 0.50 K/[facility] LAB HEMETOLOGY METHOD 07/17/2024 8:50 AM EST [facility] Basophils Absolute 0.03 0.00 - 0.20 K/[facility] LAB HEMETOLOGY METHOD 07/17/2024 8:50 AM EST [facility] Immature Granulocytes Absolute 0.26(H) 0.00 - 0.03 K/[facility] LAB HEMETOLOGY METHOD 07/17/2024 8:50 AM EST [facility] Blood Venous blood specimen / Unknown Venipuncture / Unknown 07/17/2024 6:30 AM EST 07/17/2024 7:06 AM EST us Kwesi Guido MD LAB BLOOD ORDERABLES F inal Result [facility] [address] [place] [address], * (ABNORMAL) CBC - Every 3 Days (07/17/2024 6:30 AM EST) WBC 23.0(H) 4.8 - 10.8 K/mcL LAB HEMETOLOGY METHOD 07/17/2024 8:12 AM EST [facility] RBC 3.30(L) 3.80 - 4.80 M/mcL LAB HEMETOLOGY METHOD 07/17/2024 8:12 AM [facility] Hemoglobin 8.0(L) 11.5 - 16.0 g/dL LAB HEMETOLOGY METHOD 07/17/2024 8:12 AM [facility] Hematocrit 25.6(L) 35.0 - 47.0 % LAB HEMETOLOGY METHOD 07/17/2024 8:12 AM [facility] MCV 78.5(L) 79.0 - 98.0 FL LAB HEMETOLOGY METHOD 07/17/2024 8:12 AM [facility] MCH 24.5(L) 27.0 - 32.0 pcg LAB HEMETOLOGY METHOD 07/17/2024 8:12 AM [facility] MCHC 31.3(L) 32.0 - 37.0 g/dL LAB HEMETOLOGY METHOD 07/17/2024 8:12 AM [facility] RDW 23.9(H) 11.0 - 15.0 % LAB HEMETOLOGY METHOD 07/17/2024 8:12 AM [facility] Platelets 252 130 - 400 K/mcL LAB HEMETOLOGY METHOD 07/17/2024 8:12 AM [facility] MPV 9.9 7.0 - 11.0 FL LAB HEMETOLOGY METHOD 07/17/2024 8:12 AM [facility] NRBC 0.0 <1.0 % LAB HEMETOLOGY METHOD 07/17/2024 8:12 AM [facility] NRBC Absolute 0.00 <0.10 K/mcL LAB HEMETOLOGY METHOD 07/17/2024 8:12 AM [facility] Blood Venous blood specimen / Unknown Venipuncture / Unknown 07/17/2024 6:30 AM EST 07/17/2024 7:06 AM EST us Kwesi Guido MD LAB BLOOD ORDERABLES F inal Result [facility] [address] [place] [address], [place] [phone] * Phosphorus (07/17/2024 6:30 AM EST) Phosphorus 2.9 2.5 - 4.5 mg/dL LAB CHEMISTRY METHOD 07/17/2024 8:09 AM EST [facility] Blood Venous blood specimen / Unknown Venipuncture / Unknown 07/17/2024 6:30 AM EST 07/17/2024 7:06 AM EST us Kwesi Guido MD LAB BLOOD ORDERABLES F inal Result Performing Organization Address City/[facility]/ZIP Co de Phone Number [facility] [address] [place] [address], [place] [phone] * Magnesium (07/17/2024 6:30 AM EST) [facility] Magnesium 2.2 1.9 - 2.6 mg/dL LAB CHEMISTRY METHOD 07/17/2024 8:09 AM EST [facility] Blood Venous blood specimen / Unknown Venipuncture / Unknown 07/17/2024 6:30 AM EST 07/17/2024 7:06 AM EST us Kwesi Guido MD LAB BLOOD ORDERABLES F inal Result [facility] [address] [place] [address], [place] [phone] * (ABNORMAL) Basic metabolic panel (07/17/2024 6:30 AM EST) Sodium 133 133 - 145 mmol/L LAB CHEMISTRY METHOD 07/17/2024 8:09 AM [facility] Potassium 3.8 3.5 - 5.5 mmol/L LAB CHEMISTRY METHOD 07/17/2024 8:09 AM [facility] Chloride 96 96 - 110 mmol/L LAB CHEMISTRY METHOD 07/17/2024 8:09 AM [facility] CO2 26 21 - 32 mmol/L LAB CHEMISTRY METHOD 07/17/2024 8:09 AM [facility] Anion Gap 11 3 - 11 LAB CHEMISTRY METHOD 07/17/2024 8:09 AM [facility] Glucose 293(H) 70 - 100 mg/dL LAB CHEMISTRY METHOD 07/17/2024 8:09 AM [facility] BUN 53(H) 5 - 25 mg/dL LAB CHEMISTRY METHOD 07/17/2024 8:09 AM [facility] Creatinine 4.03(H) 0.50 - 1.10 mg/dL LAB CHEMISTRY METHOD 07/17/2024 8:09 AM [facility] eGFR 11(L) >=60 mL/min/1. 73m2 LAB CHEMISTRY METHOD 07/17/2024 8:09 AM [facility] Comment:Calculation based on the??Chronic Kidney Disease Epidemiology Collaboration (CKD-EPI) equation refit??without adjustment for race. BUN/Creatinine Ratio 13.2 LAB CHEMISTRY METHOD 07/17/2024 8:09 AM [facility] Calcium 7.7(L) 8.5 - 10.5 mg/dL LAB CHEMISTRY METHOD 07/17/2024 8:09 AM [facility] Blood Venous blood specimen / Unknown Venipuncture / Unknown 07/17/2024 6:30 AM EST 07/17/2024 7:06 AM EST us Kwesi Guido MD LAB BLOOD ORDERABLES F inal Result [facility] [address] [place] [address], [place] [phone] * (ABNORMAL) Anti-Xa - Every 6 Hours (07/17/2024 12:16 AM EST) [facility] Heparin Anti-Xa 0.14(L) 0.30 - 0.70 I Unit/mL LAB COAGULATION METHOD 07/17/2024 12:45 AM EST [facility] Blood Venous blood specimen / Unknown Venipuncture / Unknown 07/17/2024 12:16 AM EST 07/17/2024 12:35 AM EST Narrative [facility] - 07/17/2024 12:45 AM EST Therapeutic range listed is for Unfractionated Heparin. LMW Heparin therapeutic range: 0.50-1.20 IU/mL us Kwesi Guido MD LAB BLOOD ORDERABLES F inal Result [facility] [address] [place] [address], [place] [phone] * (ABNORMAL) POCT Glucose, blood (07/16/2024 8:30 PM EST) [facility] Glucose POCT 263(H) 70 - 100 mg/dL 07/16/2024 8:31 PM EST [facility] Blood Capillary blood specimen / Unknown 07/16/2024 8:30 PM EST 07/16/2024 8:33 PM EST us Kwesi Guido MD LAB POINT OF C ARE TEST DOCKED DEVICE UNSOLICITED RESULTS Final Result [facility] [address] [place] [address], [place] [phone] * (ABNORMAL) Anti-Xa - STAT (07/16/2024 5:50 PM EST) [facility] Heparin Anti-Xa <0.04(L) 0.30 - 0.70 I Unit/mL LAB COAGULATION METHOD 07/16/2024 6:18 PM EST [facility] Blood Venous blood specimen / Unknown Venipuncture / Unknown 07/16/2024 5:50 PM EST 07/16/2024 6:01 PM EST Narrative [facility] - 07/16/2024 6:18 PM EST Therapeutic range listed is for Unfractionated Heparin. LMW Heparin therapeutic range: 0.50-1.20 IU/mL us Kwesi Guido MD LAB BLOOD ORDERABLES F inal Result Performing Organization Address City/[facility]/ZIP Co de Phone Number [facility] [address] [place] [address], [place] [phone] * Activated Partial Thromboplastin Time - STAT (07/16/2024 5:50 PM EST) [facility] aPTT 31.3 24.1 - 39.3 sec LAB COAGULATION METHOD 07/16/2024 6:13 PM EST [facility] Blood Venous blood specimen / Unknown Venipuncture / Unknown 07/16/2024 5:50 PM EST 07/16/2024 6:01 PM EST us Kwesi Guido MD LAB BLOOD ORDERABLES F inal Result [facility] [address] [place] [address], [place] [phone] * (ABNORMAL) POCT Glucose, blood (07/16/2024 4:28 PM EST) [facility] Glucose POCT 170(H) 70 - 100 mg/dL 07/16/2024 4:31 PM EST [facility] Blood Capillary blood specimen / Unknown 07/16/2024 4:28 PM EST 07/16/2024 4:32 PM EST us Kwesi Guido MD LAB POINT OF C ARE TEST DOCKED DEVICE UNSOLICITED RESULTS Final Result [facility] [address] [place] [address], [place] [phone] * Vascular US duplex lower extremity venous [...] Signed Date: 07/16/2024 12:33 ET Workstation ID: [id number] Transcribed By: Self Edit Transcribed Date: 07/16/2024 [...] Signed Date: 07/16/2024 12:33 ET Workstation ID: [id number] Transcribed By: Self Edit Transcribed Date: 07/16/2024 12:28 ET us Kwesi Guido MD CV VASCULAR PROCEDURES Final Result * (ABNORMAL) POCT Glucose, blood (07/16/2024 10:42 AM EST) [facility]ologist [facility] Glucose POCT 105(H) 70 - 100 mg/dL 07/16/2024 10:44 AM EST [facility] Blood Capillary blood specimen / Unknown 07/16/2024 10:42 AM EST 07/16/2024 10:45 AM EST us Kwesi Guido MD LAB POINT OF C ARE TEST DOCKED DEVICE UNSOLICITED RESULTS Final Result [facility] [address] [place] [address], [place] [phone] * (ABNORMAL) Basic metabolic panel (07/16/2024 6:45 AM EST) Pathologist [facility] Sodium 135 133 - 145 mmol/L LAB CHEMISTRY METHOD 07/16/2024 8:40 AM EST [facility] Potassium 3.8 3.5 - 5.5 mmol/L LAB CHEMISTRY METHOD 07/16/2024 8:40 AM EST [facility] Chloride 103 96 - 110 mmol/L LAB CHEMISTRY METHOD 07/16/2024 8:40 AM EST [facility] CO2 18(L) 21 - 32 mmol/L LAB CHEMISTRY METHOD 07/16/2024 8:40 AM [facility] Anion Gap 14(H) 3 - 11 LAB CHEMISTRY METHOD 07/16/2024 8:40 AM [facility] Glucose 100 70 - 100 mg/dL LAB CHEMISTRY METHOD 07/16/2024 8:40 AM [facility] BUN 77(H) 5 - 25 mg/dL LAB CHEMISTRY METHOD 07/16/2024 8:40 AM [facility] Creatinine 5.37(H) 0.50 - 1.10 mg/dL LAB CHEMISTRY METHOD 07/16/2024 8:40 AM [facility] eGFR 8(L) >=60 mL/min/1. 73m2 LAB CHEMISTRY METHOD 07/16/2024 8:40 AM [facility] Comment:Calculation based on the??Chronic Kidney Disease Epidemiology Collaboration (CKD-EPI) equation refit??without adjustment for race. BUN/Creatinine Ratio 14.3 LAB CHEMISTRY METHOD 07/16/2024 8:40 AM [facility] Calcium 8.0(L) 8.5 - 10.5 mg/dL LAB CHEMISTRY METHOD 07/16/2024 8:40 AM [facility] Blood Venous blood specimen / Unknown Venipuncture / Unknown 07/16/2024 6:45 AM EST 07/16/2024 6:58 AM EST us Kwesi Guido MD LAB BLOOD ORDERABLES F inal Result [facility] [address] [place] [address], * (ABNORMAL) Complete blood count (07/16/2024 6:45 AM EST) WBC 27.6(H) 4.8 - 10.8 K/mcL LAB HEMETOLOGY METHOD 07/16/2024 7:16 AM [facility] RBC 3.40(L) 3.80 - 4.80 M/mcL LAB HEMETOLOGY METHOD 07/16/2024 7:16 AM [facility] Hemoglobin 8.4(L) 11.5 - 16.0 g/dL LAB HEMETOLOGY METHOD 07/16/2024 7:16 AM [facility] Hematocrit 25.9(L) 35.0 - 47.0 % LAB HEMETOLOGY METHOD 07/16/2024 7:16 AM [facility] MCV 76.2(L) 79.0 - 98.0 FL LAB HEMETOLOGY METHOD 07/16/2024 7:16 AM [facility] MCH 24.7(L) 27.0 - 32.0 pcg LAB HEMETOLOGY METHOD 07/16/2024 7:16 AM [facility] MCHC 32.4 32.0 - 37.0 g/dL LAB HEMETOLOGY METHOD 07/16/2024 7:16 AM [facility] RDW 23.1(H) 11.0 - 15.0 % LAB HEMETOLOGY METHOD 07/16/2024 7:16 AM [facility] Platelets 258 130 - 400 K/mcL LAB HEMETOLOGY METHOD 07/16/2024 7:16 AM [facility] MPV 9.9 7.0 - 11.0 FL LAB HEMETOLOGY METHOD 07/16/2024 7:16 AM [facility] NRBC 0.0 <1.0 % LAB HEMETOLOGY METHOD 07/16/2024 7:16 AM [facility] NRBC Absolute 0.00 <0.10 K/mcL LAB HEMETOLOGY METHOD 07/16/2024 7:16 AM [facility] Blood Venous blood specimen / Unknown Venipuncture / Unknown 07/16/2024 6:45 AM EST 07/16/2024 6:58 AM EST us Kwesi Guido MD LAB BLOOD ORDERABLES F inal Result Performing Organization Address [facility]/ZIP Co de Phone Number [facility] [address] [place] [address], [place] [phone] * POCT Glucose, blood (07/15/2024 8:26 PM EST) Glucose POCT 93 70 - 100 mg/dL 07/15/2024 8:26 PM EST [facility] Blood Capillary blood specimen / Unknown 07/15/2024 8:26 PM EST 07/15/2024 8:27 PM EST us Kwesi Guido MD LAB POINT OF C ARE TEST DOCKED DEVICE UNSOLICITED RESULTS Final Result Performing Organization Address [facility] Co de Phone Number [facility] [address] [place] [address], [place] [phone] * POCT Glucose, blood (07/15/2024 4:30 PM EST) Glucose POCT 92 70 - 100 mg/dL 07/15/2024 4:31 PM EST [facility] Blood Capillary blood specimen / Unknown 07/15/2024 4:30 PM EST 07/15/2024 4:33 PM EST us Kwesi Guido MD LAB POINT OF C ARE TEST DOCKED DEVICE UNSOLICITED RESULTS Final Result Performing Organization Address [facility]/ZIP Co de Phone Number [facility] [address] [place] [address], [place] [phone] * IR Insert Tunneled CVC wo Port or Pump More 5yrs Left (07/15/2024 3:36 PM EST) Anatomical Region Laterality Modality Left Interventional R adiology 07/15/2024 3:45 PM EST Impressions 07/15/2024 3:47 PM EST Successful placement of a 14 [place] 23 cm dual-lumen cuffed tunneled dialysis catheter with the tip at the cavoatrial junction. This line may be used immediately. -------- FINAL REPORT -------- Dictated By: Fela Palomo Dictated Date: 07/15/2024 15:45 ET Assigned Physician: Fela Palomo Reviewed and Electronically Signed By: Fela Palomo Signed Date: 07/15/2024 15:47 ET Workstation ID: [id number] Transcribed By: Self Edit Transcribed Date: 07/15/2024 [...] The needle was exchanged for the 4 [place] transition sheath. A 0.035 wire was then advanced through ??the sheath and into the inferior vena cava under fluoroscopy. The sheath was then exchanged for a 7 [place] vascular dilator. Attention was then turned to the right upper chest and the appropriate area was anesthetized with 2% lidocaine. A small dermatotomy was performed and then a tunnel was created from the dermatotomy to the initial venous access site. The catheter was advanced through the tunnel. ??The initial venous access site was then serially dilated up to a 15 [place] peel-away sheath. The catheter was then advanced [...] The needle was exchanged for the 4 [place] transition sheath. A 0.035wire was then advanced through the sheath and into the inferior vena cavaunder fluoroscopy. The sheath was then exchanged for a 7 [place] vasculardilator. Attention was then turned to the right upper chest and the appropriatearea was anesthetized with 2% lidocaine. A small dermatotomy was performedand then a tunnel was created from the dermatotomy to the initial venousaccess site. The catheter was advanced through the tunnel. The initialvenous access site was then serially dilated up to a 15 [place] peel-awaysheath. The catheter was then advanced through [...] mGy IMPRESSION: Successful placement of a 14 [place] 23 cm dual-lumen cuffed tunneleddialysis catheter with the tip at the cavoatrial junction. This line maybe used immediately. -------- FINAL REPORT -------- Dictated By: Fela Palomo Dictated Date: 07/15/2024 15:45 ET Assigned Physician: Fela Palomo Reviewed and Electronically Signed By: Fela Palomo Signed Date: 07/15/2024 15:47 ET Workstation ID: [id number] Transcribed By: Self Edit Transcribed Date: 07/15/2024 15:45 ET Chencho Wayne MD IMG IR PROCEDURES Final Result * POCT Glucose, blood (07/15/2024 10:57 AM EST) [facility] Glucose POCT 98 70 - 100 mg/dL 07/15/2024 10:58 AM EST [facility] Blood Capillary blood specimen / Unknown 07/15/2024 10:57 AM EST 07/15/2024 10:59 AM EST Kwesi Guido MD LAB POINT OF C ARE TEST DOCKED DEVICE UNSOLICITED RESULTS Final Result [facility] [address] [place] [address], [place] [phone] * (ABNORMAL) Basic metabolic panel (07/15/2024 8:56 AM EST) [facility] Sodium 132(L) 133 - 145 mmol/L LAB CHEMISTRY METHOD 07/15/2024 10:15 AM EST [facility] Potassium 3.8 3.5 - 5.5 mmol/L LAB CHEMISTRY METHOD 07/15/2024 10:15 AM [facility] Chloride 104 96 - 110 mmol/L LAB CHEMISTRY METHOD 07/15/2024 10:15 AM [facility] CO2 16(L) 21 - 32 mmol/L LAB CHEMISTRY METHOD 07/15/2024 10:15 AM [facility] Anion Gap 12(H) 3 - 11 LAB CHEMISTRY METHOD 07/15/2024 10:15 AM [facility] Glucose 80 70 - 100 mg/dL LAB CHEMISTRY METHOD 07/15/2024 10:15 AM [facility] BUN 97(H) 5 - 25 mg/dL LAB CHEMISTRY METHOD 07/15/2024 10:15 AM [facility] Creatinine 6.70(H) 0.50 - 1.10 mg/dL LAB CHEMISTRY METHOD 07/15/2024 10:15 AM [facility] eGFR 6(L) >=60 mL/min/1. 73m2 LAB CHEMISTRY METHOD 07/15/2024 10:15 AM [facility] Comment:Calculation based on the??Chronic Kidney Disease Epidemiology Collaboration (CKD-EPI) equation refit??without adjustment for race. BUN/Creatinine Ratio 14.5 LAB CHEMISTRY METHOD 07/15/2024 10:15 AM [facility] Calcium 8.4(L) 8.5 - 10.5 mg/dL LAB CHEMISTRY METHOD 07/15/2024 10:15 AM [facility] Blood Venous blood specimen / Unknown Venipuncture / Unknown 07/15/2024 8:56 AM EST 07/15/2024 9:43 AM EST us Kwesi Guido MD LAB BLOOD ORDERABLES F inal Result [facility] [address] [place] [address], * Hepatitis B surface antigen with reflex to confirmation (07/15/2024 8:56 AM EST) [facility] Hepatitis B Surface Ag Negative Negative LAB CHEMISTRY METHOD 07/15/2024 10:36 AM EST [facility] Blood Venous blood specimen / Unknown Venipuncture / Unknown 07/15/2024 8:56 AM EST 07/15/2024 9:43 AM EST [facility] - 07/15/2024 10:36 AM EST Over the counter supplements containing high doses of biotin may interfere with this assay. ??If interference is suspected, patients shoud be retested after refraining from biotin supplements for 72 hours. us Kwesi Guido MD LAB BLOOD ORDERABLES F inal Result Performing Organization Address City/[facility]/ZIP Co de Phone Number [facility] [address] [place] [address], * Hepatitis B surface antibody quantitative (07/15/2024 8:56 AM EST) [facility] Hepatitis B Surface Ab Negative Negative LAB CHEMISTRY METHOD 07/15/2024 10:25 AM EST [facility] Hepatitis B Surface Ab Quantitative <3.1 mIU/mL LAB CHEMISTRY METHOD 07/15/2024 10:25 AM EST [facility] Blood Venous blood specimen / Unknown Venipuncture / Unknown 07/15/2024 8:56 AM EST 07/15/2024 9:43 AM EST [facility] - 07/15/2024 10:25 AM EST >=10 mIU/mL is considered to be consistent with immunity. us Kwesi Guido MD LAB BLOOD ORDERABLES F inal Result [facility] [address] [place] [address], * (ABNORMAL) Renal function panel (07/15/2024 8:56 AM EST) Sodium 132(L) 133 - 145 mmol/L LAB CHEMISTRY METHOD 07/15/2024 10:26 AM [facility] Potassium 3.8 3.5 - 5.5 mmol/L LAB CHEMISTRY METHOD 07/15/2024 10:26 AM [facility] Chloride 104 96 - 110 mmol/L LAB CHEMISTRY METHOD 07/15/2024 10:26 AM [facility] CO2 16(L) 21 - 32 mmol/L LAB CHEMISTRY METHOD 07/15/2024 10:26 AM [facility] Anion Gap 12(H) 3 - 11 LAB CHEMISTRY METHOD 07/15/2024 10:26 AM [facility] Glucose 80 70 - 100 mg/dL LAB CHEMISTRY METHOD 07/15/2024 10:26 AM [facility] BUN 97(H) 5 - 25 mg/dL LAB CHEMISTRY METHOD 07/15/2024 10:26 AM [facility] Creatinine 6.70(H) 0.50 - 1.10 mg/dL LAB CHEMISTRY METHOD 07/15/2024 10:26 AM [facility] eGFR 6(L) >=60 mL/min/1. 73m2 LAB CHEMISTRY METHOD 07/15/2024 10:26 AM [facility] Comment:Calculation based on the??Chronic Kidney Disease Epidemiology Collaboration (CKD-EPI) equation refit??without adjustment for race. BUN/Creatinine Ratio 14.5 LAB CHEMISTRY METHOD 07/15/2024 10:26 AM [facility] Albumin 3.3 3.2 - 5.0 g/dL LAB CHEMISTRY METHOD 07/15/2024 10:26 AM [facility] Comment:Results verified by repeat testing Calcium 8.4(L) 8.5 - 10.5 mg/dL LAB CHEMISTRY METHOD 07/15/2024 10:26 AM EST [facility] Phosphorus 4.2 2.5 - 4.5 mg/dL LAB CHEMISTRY METHOD 07/15/2024 10:26 AM EST [facility] Blood Venous blood specimen / Unknown Venipuncture / Unknown 07/15/2024 8:56 AM EST 07/15/2024 9:43 AM EST Chencho Wayne MD LAB BLOOD ORDERABLES Final Resu lt [facility] [address] [place] [address], [place] [phone] * POCT Glucose, blood (07/15/2024 8:03 AM EST) Glucose POCT 96 70 - 100 mg/dL 07/15/2024 8:05 AM EST [facility] Blood Capillary blood specimen / Unknown 07/15/2024 8:03 AM EST 07/15/2024 8:06 AM EST Kwesi Guido MD LAB POINT OF C ARE TEST DOCKED DEVICE UNSOLICITED RESULTS Final Result [facility] [address] [place] [address], [place] [phone] * (ABNORMAL) RBC morphology review (07/15/2024 6:56 AM EST) Rbc Morphology Present( A) Consistent with indices, Normal for LAB HEMETOLOGY METHOD 07/15/2024 8:54 AM [facility] Platelet Morphology - WAM See Note(A) Normal LAB HEMETOLOGY METHOD 07/15/2024 8:54 AM EST [facility] Comment:PLT: Normal Polychromasia Present Present( A) (none) LAB HEMETOLOGY METHOD 07/15/2024 8:54 AM [facility] Pappenheimer Bodies Present Present( A) (none) LAB HEMETOLOGY METHOD 07/15/2024 8:54 AM [facility] Schistocytes Present < 5%(A) (none) LAB HEMETOLOGY METHOD 07/15/2024 8:54 AM [facility] Blood Venous blood specimen / Unknown Venipuncture / Unknown 07/15/2024 6:56 AM EST 07/15/2024 7:52 AM EST Kwesi Guido MD LAB BLOOD ORDERABLES F inal Result [facility] [address] [place] [address], * (ABNORMAL) CBC auto differential (07/15/2024 6:56 AM EST) WBC 23.7(H) 4.8 - 10.8 K/mcL LAB HEMETOLOGY METHOD 07/15/2024 8:54 AM [facility] RBC 3.10(L) 3.80 - 4.80 M/mcL LAB HEMETOLOGY METHOD 07/15/2024 8:54 AM [facility] Hemoglobin 7.5(L) 11.5 - 16.0 g/dL LAB HEMETOLOGY METHOD 07/15/2024 8:54 AM [facility] Hematocrit 23.6(L) 35.0 - 47.0 % LAB HEMETOLOGY METHOD 07/15/2024 8:54 AM [facility] MCV 75.9(L) 79.0 - 98.0 FL LAB HEMETOLOGY METHOD 07/15/2024 8:54 AM [facility] MCH 24.1(L) 27.0 - 32.0 pcg LAB HEMETOLOGY METHOD 07/15/2024 8:54 AM [facility] MCHC 31.8(L) 32.0 - 37.0 g/dL LAB HEMETOLOGY METHOD 07/15/2024 8:54 AM [facility] RDW 22.7(H) 11.0 - 15.0 % LAB HEMETOLOGY METHOD 07/15/2024 8:54 AM [facility] Platelets 246 130 - 400 K/mcL LAB HEMETOLOGY METHOD 07/15/2024 8:54 AM [facility] MPV 10.3 7.0 - 11.0 FL LAB HEMETOLOGY METHOD 07/15/2024 8:54 AM [facility] NRBC 0.0 <1.0 % LAB HEMETOLOGY METHOD 07/15/2024 8:54 AM [facility] NRBC Absolute 0.00 <0.10 K/mcL LAB HEMETOLOGY METHOD 07/15/2024 8:54 AM [facility] Neutrophils Relative 87.4 % LAB HEMETOLOGY METHOD 07/15/2024 8:54 AM [facility] Comment:This is an appended report. These results have been appended to a previously preliminary verified report. Lymphocytes Relative 3.5 % LAB HEMETOLOGY METHOD 07/15/2024 8:54 AM [facility] Comment:This is an appended report. These results have been appended to a previously preliminary verified report. Monocytes Relative 4.8 % LAB HEMETOLOGY METHOD 07/15/2024 8:54 AM [facility] Comment:This is an appended report. These results have been appended to a previously preliminary verified report. Eosinophils Relative 1.7 % LAB HEMETOLOGY METHOD 07/15/2024 8:54 AM [facility] Comment:This is an appended report. These results have been appended to a previously preliminary verified report. Basophils Relative 0.2 % LAB HEMETOLOGY METHOD 07/15/2024 8:54 AM [facility] Comment:This is an appended report. These results have been appended to a previously preliminary verified report. Immature Granulocytes Relative 2.4 % LAB HEMETOLOGY METHOD 07/15/2024 8:54 AM [facility] Comment:This is an appended report. These results have been appended to a previously preliminary verified report. Neutrophils Absolute 20.75(H) 1.50 - 7.00 K/mcL LAB HEMETOLOGY METHOD 07/15/2024 8:54 AM [facility] Comment:This is an appended report. These results have been appended to a previously preliminary verified report. Lymphocytes Absolute 0.84(L) 1.00 - 5.00 K/mcL LAB HEMETOLOGY METHOD 07/15/2024 8:54 AM [facility] Comment:This is an appended report. These results have been appended to a previously preliminary verified report. Monocytes Absolute 1.13(H) 0.20 - 1.00 K/mcL LAB HEMETOLOGY METHOD 07/15/2024 8:54 AM [facility] Comment:This is an appended report. These results have been appended to a previously preliminary verified report. Eosinophils Absolute 0.41 0.00 - 0.50 K/mcL LAB HEMETOLOGY METHOD 07/15/2024 8:54 AM [facility] Comment:This is an appended report. These results have been appended to a previously preliminary verified report. Basophils Absolute 0.05 0.00 - 0.20 K/mcL LAB HEMETOLOGY METHOD 07/15/2024 8:54 AM [facility] Comment:This is an appended report. These results have been appended to a previously preliminary verified report. Immature Granulocytes Absolute 0.56(H) 0.00 - 0.03 K/mcL LAB HEMETOLOGY METHOD 07/15/2024 8:54 AM [facility] Comment:This is an appended report. These results have been appended to a previously preliminary verified report. Blood Venous blood specimen / Unknown Venipuncture / Unknown 07/15/2024 6:56 AM EST 07/15/2024 7:52 AM EST us Kwesi Guido MD LAB BLOOD ORDERABLES F inal Result Performing Organization Address [facility]/ZIP Co de Phone Number [facility] [address] [place] [address], [place] [phone] * (ABNORMAL) Prothrombin time with INR (07/15/2024 6:56 AM EST) Protime 16.4(H) 10.6 - 13.9 sec LAB COAGULATION METHOD 07/15/2024 8:16 AM EST [facility] INR 1.3 LAB COAGULATION METHOD 07/15/2024 8:16 AM EST [facility] Blood Venous blood specimen / Unknown Venipuncture / Unknown 07/15/2024 6:56 AM EST 07/15/2024 7:52 AM EST us Kwesi Guido MD LAB BLOOD ORDERABLES F inal Result Performing Organization Address [facility] Co de Phone Number [facility] [address] [place] [address], * Magnesium (07/15/2024 6:56 AM EST) Magnesium 2.2 1.9 - 2.6 mg/dL LAB CHEMISTRY METHOD 07/15/2024 8:48 AM EST [facility] Blood Venous blood specimen / Unknown Venipuncture / Unknown 07/15/2024 6:56 AM EST 07/15/2024 7:52 AM EST us Kwesi Guido MD LAB BLOOD ORDERABLES F inal Result [facility] [address] [place] [address], * (ABNORMAL) Basic metabolic panel (07/15/2024 6:56 AM EST) Sodium 134 133 - 145 mmol/L LAB CHEMISTRY METHOD 07/15/2024 8:58 AM EST [facility] Potassium 3.8 3.5 - 5.5 mmol/L LAB CHEMISTRY METHOD 07/15/2024 8:58 AM [facility] Chloride 104 96 - 110 mmol/L LAB CHEMISTRY METHOD 07/15/2024 8:58 AM [facility] CO2 15(L) 21 - 32 mmol/L LAB CHEMISTRY METHOD 07/15/2024 8:58 AM [facility] Anion Gap 15(H) 3 - 11 LAB CHEMISTRY METHOD 07/15/2024 8:58 AM [facility] Glucose 82 70 - 100 mg/dL LAB CHEMISTRY METHOD 07/15/2024 8:58 AM [facility] BUN 95(H) 5 - 25 mg/dL LAB CHEMISTRY METHOD 07/15/2024 8:58 AM [facility] Creatinine 6.68(H) 0.50 - 1.10 mg/dL LAB CHEMISTRY METHOD 07/15/2024 8:58 AM [facility] eGFR 6(L) >=60 mL/min/1. 73m2 LAB CHEMISTRY METHOD 07/15/2024 8:58 AM [facility] Comment:Calculation based on the??Chronic Kidney Disease Epidemiology Collaboration (CKD-EPI) equation refit??without adjustment for race. BUN/Creatinine Ratio 14.2 LAB CHEMISTRY METHOD 07/15/2024 8:58 AM [facility] Calcium 8.3(L) 8.5 - 10.5 mg/dL LAB CHEMISTRY METHOD 07/15/2024 8:58 AM [facility] Blood Venous blood specimen / Unknown Venipuncture / Unknown 07/15/2024 6:56 AM EST 07/15/2024 7:52 AM EST us Kwesi Guido MD LAB BLOOD ORDERABLES F inal Result [facility] [address] [place] [address], [place] [phone] * (ABNORMAL) POCT Glucose, blood (07/14/2024 8:07 PM EST) Glucose POCT 122(H) 70 - 100 mg/dL 07/14/2024 8:07 PM EST [facility] Blood Capillary blood specimen / Unknown 07/14/2024 8:07 PM EST 07/14/2024 8:09 PM EST us Kwesi Guido MD LAB POINT OF C ARE TEST DOCKED DEVICE UNSOLICITED RESULTS Final Result Performing Organization Address [facility]/ZIP Co de Phone Number [facility] [address] [place] [address], [place] [phone] * (ABNORMAL) POCT Glucose, blood (07/14/2024 4:26 PM EST) Glucose POCT 152(H) 70 - 100 mg/dL 07/14/2024 4:27 PM EST [facility] Blood Capillary blood specimen / Unknown 07/14/2024 4:26 PM EST 07/14/2024 4:28 PM EST us Kwesi Guido MD LAB POINT OF C ARE TEST DOCKED DEVICE UNSOLICITED RESULTS Final Result Performing Organization Address City/[facility]/ZIP Co de Phone Number [facility] [address] [place] [address], [place] [phone] * POCT Glucose, blood (07/14/2024 11:32 AM EST) Glucose POCT 100 70 - 100 mg/dL 07/14/2024 11:37 AM EST [facility] Blood Capillary blood specimen / Unknown 07/14/2024 11:32 AM EST 07/14/2024 11:38 AM EST us Kwesi Guido MD LAB POINT OF ARE TEST DOCKED DEVICE UNSOLICITED RESULTS Final Result [facility] [address] [place] [address], [place] [phone] * POCT Glucose, blood (07/14/2024 8:19 AM EST) Glucose POCT 72 70 - 100 mg/dL 07/14/2024 8:38 AM EST [facility] Blood Capillary blood specimen / Unknown 07/14/2024 8:19 AM EST 07/14/2024 8:39 AM EST us Kwesi Guido MD LAB POINT OF ARE TEST DOCKED DEVICE UNSOLICITED RESULTS Final Result [facility] [address] [place] [address], [place] [phone] * Extractable Nuclear Antibodies Profile (07/14/2024 6:00 AM EST) SM Ab Negative Negative LAB CHEMISTRY METHOD 07/17/2024 12:29 PM EST [facility] SM Antibody Quant 2 <20 units LAB CHEMISTRY METHOD 07/17/2024 12:29 PM EST [facility] QUALITY TESTER Ab Negative Negative LAB CHEMISTRY METHOD 07/17/2024 12:29 PM EST [facility] QUALITY TESTER Antibody Quant 1 <20 units LAB CHEMISTRY METHOD 07/17/2024 12:29 PM EST [facility] Blood Venous blood specimen / Unknown 07/14/2024 6:00 AM EST 07/14/2024 6:35 AM EST us Kwesi Guido MD LAB BLOOD ORDERABLES F inal Result Performing Organization Address City/[facility]/ZIP Co de Phone Number [facility] [address] [place] [address], [place] [phone] * C4 complement (07/14/2024 6:00 AM EST) C4 Complement 18 16 - 47 mg/dL LAB CHEMISTRY METHOD 07/14/2024 11:20 AM EST [facility] Blood Venous blood specimen / Unknown 07/14/2024 6:00 AM EST 07/14/2024 6:35 AM EST us Kwesi Guido MD LAB BLOOD ORDERABLES F inal Result Performing Organization Address [facility] Co de Phone Number [facility] [address] [place] [address], [place] [phone] * (ABNORMAL) C3 complement (07/14/2024 6:00 AM EST) C3 Complement 78(L) 88 - 201 mg/dL LAB CHEMISTRY METHOD 07/14/2024 11:20 AM EST [facility] Blood Venous blood specimen / Unknown 07/14/2024 6:00 AM EST 07/14/2024 6:35 AM EST us Kwesi Guido MD LAB BLOOD ORDERABLES F inal Result Performing Organization Address City/[facility]/ZIP Co de Phone Number [facility] [address] [place] [address], [place] [phone] * (ABNORMAL) Anti-neutrophilic cytoplasmic antibody (07/14/2024 6:00 AM EST) [facility] Myeloperoxidase Ab Negative Negative LAB CHEMISTRY METHOD 07/20/2024 12:10 PM EST [facility] Myeloperoxidase Ab, Quant 2 <=20 units LAB CHEMISTRY METHOD 07/20/2024 12:10 PM [facility] Proteinase-3 Ab Positive(A ) Negative LAB CHEMISTRY METHOD 07/20/2024 12:10 PM [facility] Proteinase-3 Ab Quant 162(H) <=20 units LAB CHEMISTRY METHOD 07/20/2024 12:10 PM [facility] Blood Venous blood specimen / Unknown 07/14/2024 6:00 AM EST 07/14/2024 6:35 AM EST Kwesi Guido MD LAB BLOOD ORDERABLES F inal Result [facility] [address] [place] [address], * (ABNORMAL) CBC auto differential (07/14/2024 6:00 AM EST) [facility] WBC 19.8(H) 4.8 - 10.8 K/mcL LAB HEMETOLOGY METHOD 07/14/2024 6:56 AM [facility] RBC 2.90(L) 3.80 - 4.80 M/mcL LAB HEMETOLOGY METHOD 07/14/2024 6:56 AM [facility] Hemoglobin 7.0(L) 11.5 - 16.0 g/dL LAB HEMETOLOGY METHOD 07/14/2024 6:56 AM [facility] Hematocrit 21.8(L) 35.0 - 47.0 % LAB HEMETOLOGY METHOD 07/14/2024 6:56 AM [facility] MCV 75.7(L) 79.0 - 98.0 FL LAB HEMETOLOGY METHOD 07/14/2024 6:56 AM [facility] MCH 24.3(L) 27.0 - 32.0 pcg LAB HEMETOLOGY METHOD 07/14/2024 6:56 AM [facility] MCHC 32.1 32.0 - 37.0 g/dL LAB HEMETOLOGY METHOD 07/14/2024 6:56 AM [facility] RDW 21.6(H) 11.0 - 15.0 % LAB HEMETOLOGY METHOD 07/14/2024 6:56 AM [facility] Platelets 193 130 - 400 K/mcL LAB HEMETOLOGY METHOD 07/14/2024 6:56 AM [facility] MPV 9.9 7.0 - 11.0 FL LAB HEMETOLOGY METHOD 07/14/2024 6:56 AM [facility] NRBC 0.0 <1.0 % LAB HEMETOLOGY METHOD 07/14/2024 6:56 AM [facility] NRBC Absolute 0.00 <0.10 K/mcL LAB HEMETOLOGY METHOD 07/14/2024 6:56 AM [facility] Neutrophils Relative 85.1 % LAB HEMETOLOGY METHOD 07/14/2024 6:56 AM [facility] Lymphocytes Relative 3.7 % LAB HEMETOLOGY METHOD 07/14/2024 6:56 AM [facility] Monocytes Relative 6.1 % LAB HEMETOLOGY METHOD 07/14/2024 6:56 AM [facility] Eosinophils Relative 2.5 % LAB HEMETOLOGY METHOD 07/14/2024 6:56 AM [facility] Basophils Relative 0.2 % LAB HEMETOLOGY METHOD 07/14/2024 6:56 AM [facility] Immature Granulocytes Relative 2.4 % LAB HEMETOLOGY METHOD 07/14/2024 6:56 AM EST [facility] Neutrophils Absolute 16.82(H) 1.50 - 7.00 K/[facility] LAB HEMETOLOGY METHOD 07/14/2024 6:56 AM EST [facility] Lymphocytes Absolute 0.74(L) 1.00 - 5.00 K/mcL LAB HEMETOLOGY METHOD 07/14/2024 6:56 AM EST [facility] Monocytes Absolute 1.20(H) 0.20 - 1.00 K/mcL LAB HEMETOLOGY METHOD 07/14/2024 6:56 AM EST [facility] Eosinophils Absolute 0.50 0.00 - 0.50 K/[facility] LAB HEMETOLOGY METHOD 07/14/2024 6:56 AM [facility] Basophils Absolute 0.04 0.00 - 0.20 K/mcL LAB HEMETOLOGY METHOD 07/14/2024 6:56 AM EST [facility] Immature Granulocytes Absolute 0.48(H) 0.00 - 0.03 K/mcL LAB HEMETOLOGY METHOD 07/14/2024 6:56 AM EST [facility] Blood Venous blood specimen / Unknown 07/14/2024 6:00 AM EST 07/14/2024 6:36 AM EST Kwesi Guido MD LAB BLOOD ORDERABLES F inal Result [facility] [address] [place] [address], * Magnesium (07/14/2024 6:00 AM EST) Magnesium 2.0 1.9 - 2.6 mg/dL LAB CHEMISTRY METHOD 07/14/2024 7:23 AM EST [facility] Blood Venous blood specimen / Unknown 07/14/2024 6:00 AM EST 07/14/2024 6:35 AM EST us Kwesi Guido MD LAB BLOOD ORDERABLES F inal Result [facility] [address] [place] [address], * (ABNORMAL) Basic metabolic panel (07/14/2024 6:00 AM EST) Sodium 132(L) 133 - 145 mmol/L LAB CHEMISTRY METHOD 07/14/2024 7:38 AM [facility] Potassium 3.4(L) 3.5 - 5.5 mmol/L LAB CHEMISTRY METHOD 07/14/2024 7:38 AM [facility] Chloride 104 96 - 110 mmol/L LAB CHEMISTRY METHOD 07/14/2024 7:38 AM [facility] CO2 18(L) 21 - 32 mmol/L LAB CHEMISTRY METHOD 07/14/2024 7:38 AM [facility] Anion Gap 10 3 - 11 LAB CHEMISTRY METHOD 07/14/2024 7:38 AM [facility] Glucose 69(L) 70 - 100 mg/dL LAB CHEMISTRY METHOD 07/14/2024 7:38 AM [facility] BUN 84(H) 5 - 25 mg/dL LAB CHEMISTRY METHOD 07/14/2024 7:38 AM [facility] Creatinine 5.84(H) 0.50 - 1.10 mg/dL LAB CHEMISTRY METHOD 07/14/2024 7:38 AM [facility] eGFR 7(L) >=60 mL/min/1. 73m2 LAB CHEMISTRY METHOD 07/14/2024 7:38 AM [facility] Comment:Calculation based on the??Chronic Kidney Disease Epidemiology Collaboration (CKD-EPI) equation refit??without adjustment for race. BUN/Creatinine Ratio 14.4 LAB CHEMISTRY METHOD 07/14/2024 7:38 AM EST [facility] Calcium 8.2(L) 8.5 - 10.5 mg/dL LAB CHEMISTRY METHOD 07/14/2024 7:38 AM EST [facility] Blood Venous blood specimen / Unknown 07/14/2024 6:00 AM EST 07/14/2024 6:35 AM EST us Kwesi Guido MD LAB BLOOD ORDERABLES F inal Result Performing Organization Address [facility]/ZIP Co de Phone Number [facility] [address] [place] [address], [place] [phone] * (ABNORMAL) POCT Glucose, blood (07/13/2024 8:53 PM EST) Glucose POCT 153(H) 70 - 100 mg/dL 07/13/2024 8:55 PM EST [facility] Blood Capillary blood specimen / Unknown 07/13/2024 8:53 PM EST 07/13/2024 8:56 PM EST us Kwesi Guido MD LAB POINT OF C ARE TEST DOCKED DEVICE UNSOLICITED RESULTS Final Result Performing Organization Address [facility]/ZIP Co de Phone Number [facility] [address] [place] [address], [place] [phone] * Transfuse RBC (07/13/2024 7:03 PM EST) us Kwesi Guido MD BLOOD TRANSFUSION ORDE RABDIEGO Final Result * Transfuse RBC: 1 Units (07/13/2024 7:03 PM EST) us Kwesi Guido MD BLOOD TRANSFUSION ORDE RABLES Final Result * (ABNORMAL) POCT Glucose, blood (07/13/2024 3:53 PM EST) Glucose POCT 115(H) 70 - 100 mg/dL 07/13/2024 3:56 PM EST [facility] Blood Capillary blood specimen / Unknown 07/13/2024 3:53 PM EST 07/13/2024 3:57 PM EST us Kwesi Guido MD LAB POINT OF C ARE TEST DOCKED DEVICE UNSOLICITED RESULTS Final Result Performing Organization Address City/[facility]/ZIP Co de Phone Number [facility] [address] [place] [address], [place] [phone] * (ABNORMAL) POCT Glucose, blood (07/13/2024 10:58 AM EST) [facility] Glucose POCT 106(H) 70 - 100 mg/dL 07/13/2024 10:58 AM EST [facility] Blood Capillary blood specimen / Unknown 07/13/2024 10:58 AM EST 07/13/2024 10:59 AM EST us Kwesi Guido MD LAB POINT OF C ARE TEST DOCKED DEVICE UNSOLICITED RESULTS Final Result Performing Organization Address [facility] Co de Phone Number [facility] [address] [place] [address], [place] [phone] * Prepare RBC: 1 Units (07/13/2024 10:44 AM EST) Product Code [id number] 07/13/2024 12:34 PM EST [facility] Unit Number [id number] 07/13/19 12:34 PM [facility] Crossmatch Compatible 07/13/2024 11:06 AM EST [facility] Dispense Status Transfused 07/13/2024 12:34 PM EST [facility] Unit ABO Rh OPOS 07/13/2024 12:34 PM EST [facility] Unit Expiration Date Time [id number] 07/13/2024 12:34 PM EST [facility] Unit Blood Type 5100 07/13/2024 12:34 PM [facility] Blood Venous blood specimen / Unknown 07/13/2024 10:44 AM EST 07/13/2024 8:32 AM EST us Kwesi Guido MD BLOOD BANK PRODUCT ORD ERABLES Final Result [facility] [address] [place] [address], [place] [phone] * Type and screen (07/13/2024 8:24 AM EST) ABO Group O 07/13/2024 10:29 AM EST [facility] Rh Type Positive 07/13/2024 10:29 AM EST [facility] Antibody Screen Negative 07/13/2024 10:29 AM EST [facility] Blood Venous blood specimen / Unknown Venipuncture / Unknown 07/13/2024 8:24 AM EST 07/13/2024 8:32 AM EST us Kwesi Guido MD LAB BLOOD BANK TEST OR DERABLES Final Result [facility] [address] [place] [address], [place] [phone] * POCT Glucose, blood (07/13/2024 8:13 AM EST) Glucose POCT 87 70 - 100 mg/dL 07/13/2024 8:20 AM EST [facility] Blood Capillary blood specimen / Unknown 07/13/2024 8:13 AM EST 07/13/2024 8:21 AM EST us Kwesi Guido MD LAB POINT OF C ARE TEST DOCKED DEVICE UNSOLICITED RESULTS Final Result [facility] [address] [place] [address], [place] [phone] * (ABNORMAL) CBC auto differential (07/13/2024 6:38 AM EST) WBC 20.6(H) 4.8 - 10.8 K/mcL LAB HEMETOLOGY METHOD 07/13/2024 7:14 AM [facility] RBC 2.70(L) 3.80 - 4.80 M/mcL LAB HEMETOLOGY METHOD 07/13/2024 7:14 AM [facility] Hemoglobin 6.5(L) 11.5 - 16.0 g/dL LAB HEMETOLOGY METHOD 07/13/2024 7:14 AM [facility] Hematocrit 20.3(L) 35.0 - 47.0 % LAB HEMETOLOGY METHOD 07/13/2024 7:14 AM [facility] MCV 74.4(L) 79.0 - 98.0 FL LAB HEMETOLOGY METHOD 07/13/2024 7:14 AM [facility] MCH 23.8(L) 27.0 - 32.0 pcg LAB HEMETOLOGY METHOD 07/13/2024 7:14 AM [facility] MCHC 32.0 32.0 - 37.0 g/dL LAB HEMETOLOGY METHOD 07/13/2024 7:14 AM [facility] RDW 21.4(H) 11.0 - 15.0 % LAB HEMETOLOGY METHOD 07/13/2024 7:14 AM [facility] Platelets 199 130 - 400 K/mcL LAB HEMETOLOGY METHOD 07/13/2024 7:14 AM [facility] MPV 9.9 7.0 - 11.0 FL LAB HEMETOLOGY METHOD 07/13/2024 7:14 AM [facility] NRBC 0.0 <1.0 % LAB HEMETOLOGY METHOD 07/13/2024 7:14 AM [facility] NRBC Absolute 0.00 <0.10 K/mcL LAB HEMETOLOGY METHOD 07/13/2024 7:14 AM [facility] Neutrophils Relative 84.4 % LAB HEMETOLOGY METHOD 07/13/2024 7:14 AM [facility] Lymphocytes Relative 3.9 % LAB HEMETOLOGY METHOD 07/13/2024 7:14 AM [facility] Monocytes Relative 6.3 % LAB HEMETOLOGY METHOD 07/13/2024 7:14 AM [facility] Eosinophils Relative 3.3 % LAB HEMETOLOGY METHOD 07/13/2024 7:14 AM [facility] Basophils Relative 0.1 % LAB HEMETOLOGY METHOD 07/13/2024 7:14 AM [facility] Immature Granulocytes Relative 2.0 % LAB HEMETOLOGY METHOD 07/13/2024 7:14 AM [facility] Neutrophils Absolute 17.36(H) 1.50 - 7.00 K/mcL LAB HEMETOLOGY METHOD 07/13/2024 7:14 AM [facility] Lymphocytes Absolute 0.81(L) 1.00 - 5.00 K/mcL LAB HEMETOLOGY METHOD 07/13/2024 7:14 AM [facility] Monocytes Absolute 1.30(H) 0.20 - 1.00 K/mcL LAB HEMETOLOGY METHOD 07/13/2024 7:14 AM [facility] Eosinophils Absolute 0.67(H) 0.00 - 0.50 K/mcL LAB HEMETOLOGY METHOD 07/13/2024 7:14 AM EST [facility] Basophils Absolute 0.03 0.00 - 0.20 K/[facility] LAB HEMETOLOGY METHOD 07/13/2024 7:14 AM EST [facility] Immature Granulocytes Absolute 0.41(H) 0.00 - 0.03 K/[facility] LAB HEMETOLOGY METHOD 07/13/2024 7:14 AM EST [facility] Blood Venous blood specimen / Unknown Venipuncture / Unknown 07/13/2024 6:38 AM EST 07/13/2024 6:51 AM EST us Kwesi Guido MD LAB BLOOD ORDERABLES F inal Result Performing Organization Address City/[facility]/ZIP Co de Phone Number [facility] [address] [place] [address], * Phosphorus (07/13/2024 6:38 AM EST) Phosphorus 3.0 2.5 - 4.5 mg/dL LAB CHEMISTRY METHOD 07/13/2024 7:44 AM EST [facility] Blood Venous blood specimen / Unknown Venipuncture / Unknown 07/13/2024 6:38 AM EST 07/13/2024 6:50 AM EST us Kwesi Guido MD LAB BLOOD ORDERABLES F inal Result [facility] [address] [place] [address], [place] [phone] * Magnesium (07/13/2024 6:38 AM EST) Magnesium 1.9 1.9 - 2.6 mg/dL LAB CHEMISTRY METHOD 07/13/2024 7:44 AM EST [facility] Blood Venous blood specimen / Unknown Venipuncture / Unknown 07/13/2024 6:38 AM EST 07/13/2024 6:50 AM EST Kwesi Guido MD LAB BLOOD ORDERABLES F inal Result [facility] [address] [place] [address], * (ABNORMAL) Basic metabolic panel (07/13/2024 6:38 AM EST) Sodium 132(L) 133 - 145 mmol/L LAB CHEMISTRY METHOD 07/13/2024 7:57 AM [facility] Potassium 3.6 3.5 - 5.5 mmol/L LAB CHEMISTRY METHOD 07/13/2024 7:57 AM [facility] Chloride 104 96 - 110 mmol/L LAB CHEMISTRY METHOD 07/13/2024 7:57 AM [facility] CO2 18(L) 21 - 32 mmol/L LAB CHEMISTRY METHOD 07/13/2024 7:57 AM [facility] Anion Gap 10 3 - 11 LAB CHEMISTRY METHOD 07/13/2024 7:57 AM [facility] Glucose 71 70 - 100 mg/dL LAB CHEMISTRY METHOD 07/13/2024 7:57 AM [facility] BUN 73(H) 5 - 25 mg/dL LAB CHEMISTRY METHOD 07/13/2024 7:57 AM [facility] Creatinine 5.13(H) 0.50 - 1.10 mg/dL LAB CHEMISTRY METHOD 07/13/2024 7:57 AM [facility] eGFR 8(L) >=60 mL/min/1. 73m2 LAB CHEMISTRY METHOD 07/13/2024 7:57 AM [facility] Comment:Calculation based on the??Chronic Kidney Disease Epidemiology Collaboration (CKD-EPI) equation refit??without adjustment for race. BUN/Creatinine Ratio 14.2 LAB CHEMISTRY METHOD 07/13/2024 7:57 AM EST [facility] Calcium 8.1(L) 8.5 - 10.5 mg/dL LAB CHEMISTRY METHOD 07/13/2024 7:57 AM EST [facility] Blood Venous blood specimen / Unknown Venipuncture / Unknown 07/13/2024 6:38 AM EST 07/13/2024 6:50 AM EST us Kwesi Guido MD LAB BLOOD ORDERABLES F inal Result [facility] [address] [place] [address], [place] [phone] * Uric acid (07/13/2024 6:38 AM EST) Uric Acid 7.5 3.1 - 7.8 mg/dL LAB CHEMISTRY METHOD 07/13/2024 7:44 AM EST [facility] Blood Venous blood specimen / Unknown Venipuncture / Unknown 07/13/2024 6:38 AM EST 07/13/2024 6:50 AM EST us Chencho Wayne MD LAB BLOOD ORDERABLES Final Resu lt [facility] [address] [place] [address], [place] [phone] * (ABNORMAL) Sedimentation rate (07/13/2024 6:38 AM EST) Sed Rate 84(H) 0 - 30 mm/hr LAB HEMETOLOGY METHOD 07/13/2024 7:32 AM EST [facility] Blood Venous blood specimen / Unknown Venipuncture / Unknown 07/13/2024 6:38 AM EST 07/13/2024 6:51 AM EST us Kwesi Guido MD LAB BLOOD ORDERABLES F inal Result Performing Organization Address City/[facility]/ZIP Co de Phone Number [facility] [address] [place] [address], [place] [phone] * (ABNORMAL) POCT Glucose, blood (07/12/2024 8:06 PM EST) Glucose POCT 125(H) 70 - 100 mg/dL 07/12/2024 8:08 PM EST [facility] Blood Capillary blood specimen / Unknown 07/12/2024 8:06 PM EST 07/12/2024 8:09 PM EST us Kwesi Guido MD LAB POINT OF C ARE TEST DOCKED DEVICE UNSOLICITED RESULTS Final Result Performing Organization Address [facility]/ZIP Co de Phone Number [facility] [address] [place] [address], [place] [phone] * (ABNORMAL) POCT Glucose, blood (07/12/2024 3:53 PM EST) [facility] Signature Glucose POCT 143(H) 70 - 100 mg/dL 07/12/2024 3:57 PM EST [facility] Blood Capillary blood specimen / Unknown 07/12/2024 3:53 PM EST 07/12/2024 3:59 PM EST us Kwesi Guido MD LAB POINT OF C ARE TEST DOCKED DEVICE UNSOLICITED RESULTS Final Result Performing Organization Address [facility]/ZIP Co de Phone Number [facility] [address] [place] [address], [place] [phone] * (ABNORMAL) Protein and creatinine with ratio, urine (07/12/2024 3:27 PM EST) Protein, Urine 192 mg/dL LAB CHEMISTRY METHOD 07/12/2024 6:44 PM EST [facility] Prot/Creat, Ur 3.00(H) <=0.20 mg/mg creat LAB CHEMISTRY METHOD 07/12/2024 6:44 PM EST [facility] Creatinine, Urine 64.0 mg/dL LAB CHEMISTRY METHOD 07/12/2024 6:44 PM [facility] Urine Urine specimen obtained by clean catch procedure / Unknown Non-blood Collection / Unknown 07/12/2024 3:27 PM EST 07/12/2024 4:10 PM EST us Chencho Wayne MD LAB URINE ORDERABLES Final Resu lt [facility] [address] [place] [address], [place] [phone] * Creatinine, urine, random (07/12/2024 3:27 PM EST) Creatinine, Urine 64.0 mg/dL LAB CHEMISTRY METHOD 07/12/2024 4:41 PM EST [facility] Urine Urine specimen from urethra / Unknown Non-blood Collection / Unknown 07/12/2024 3:27 PM EST 07/12/2024 4:11 PM EST us Chencho Wayne MD LAB URINE ORDERABLES Final Resu lt [facility] [address] [place] [address], [place] [phone] * Sodium, urine, random (07/12/2024 3:27 PM EST) Sodium, Ur 34 mmol/L LAB CHEMISTRY METHOD 07/12/2024 6:44 PM EST [facility] Urine Urine specimen obtained by clean catch procedure / Unknown Non-blood Collection / Unknown 07/12/2024 3:27 PM EST 07/12/2024 4:10 PM EST Aye [facility] LAB URINE ORDERABLES Final Re sult Performing Organization Address City/[facility]/ZIP Co de Phone Number [facility] [address] [place] [address], [place] [phone] * Osmolality, urine (07/12/2024 3:27 PM EST) Osmolality, Urine 397 300 - 1,300 mOsm/kg LAB CHEMISTRY METHOD 07/12/2024 5:57 PM EST [facility] Urine Urine specimen obtained by clean catch procedure / Unknown Non-blood Collection / Unknown 07/12/2024 3:27 PM EST 07/12/2024 4:10 PM EST [facility] URINE ORDERABLES Final Re sult Performing Organization Address [facility] Co de Phone Number [facility] [address] [place] [address], [place] [phone] * CT Chest wo Contrast (07/12/2024 12:48 PM EST) Anatomical Region Laterality Modality Body Computed Tomogra phy 07/12/2024 1:07 PM EST Impressions 07/12/2024 1:19 PM EST Impression: 1. No significant change in an irregular juxtapleural nodular opacity in the right lung apex. Malignancy is not excluded. 2. No developing lymphadenopathy. 3. Small bilateral pleural effusions, new. Telerad RYLEY ([id number]) -------- FINAL REPORT -------- Dictated By: Edilia Durbin Dictated Date: 07/12/2024 13:07 ET Assigned Physician: Edilia Durbin Reviewed and Electronically Signed By: Edilia Durbin Signed Date: 07/12/2024 13:19 ET Workstation ID: [id number] Transcribed By: Self Edit Transcribed Date: 07/12/2024 13:07 ET Narrative 07/12/2024 1:19 PM EST History: Abnormal chest radiograph. The patient underwent nondiagnostic CT- guided biopsy of the right apical lung nodule on 05/23/24. Comparison: Thoracic CT 06/17/24, 03/21/24 Technique: Helical volumetric imaging of the thorax was performed without IV contrast. DLP: 613.10 mGy/cm GE [employer] VCT Iterative reconstruction technique Findings: Respiratory motion [...] performed withoutIV contrast. DLP: 613.10 mGy/cm [employer] VCT Iterative reconstruction technique Findings: Respiratory motion [...] Small bilateral pleural effusions, new. Teleradha HEDRICK ([id number]) -------- FINAL REPORT -------- Dictated By: Edilia Durbin Dictated Date: 07/12/2024 13:07 ET Assigned Physician: Edilia Durbin Reviewed and Electronically Signed By: Edilia Durbin Signed Date: 07/12/2024 13:19 ET Workstation ID: [id number] Transcribed By: Self Edit Transcribed Date: 07/12/2024 13:07 ET us Kwesi Guido MD IMG CT PROCEDURES [place] Result * (ABNORMAL) POCT Glucose, blood (07/12/2024 11:48 AM EST) Glucose POCT 176(H) 70 - 100 mg/dL 07/12/2024 11:49 AM EST [facility] Blood Capillary blood specimen / Unknown 07/12/2024 11:48 AM EST 07/12/2024 11:50 AM EST us Kwesi Guido MD LAB POINT OF C ARE TEST DOCKED DEVICE UNSOLICITED RESULTS Final Result [facility] [address] [place] [address], [place] [phone] * (ABNORMAL) POCT Glucose, blood (07/12/2024 8:07 AM EST) [facility] Glucose POCT 166(H) 70 - 100 mg/dL 07/12/2024 8:31 AM EST [facility] Blood Capillary blood specimen / Unknown 07/12/2024 8:07 AM EST 07/12/2024 8:32 AM EST us Kwesi Guido MD LAB POINT OF C ARE TEST DOCKED DEVICE UNSOLICITED RESULTS Final Result [facility] [address] [place] [address], [place] [phone] * (ABNORMAL) Lipase (07/12/2024 6:19 AM EST) [facility] Lipase <10(L) 13 - 75 unit/L LAB CHEMISTRY METHOD 07/12/2024 3:26 PM EST [facility] Blood Venous blood specimen / Unknown Venipuncture / Unknown 07/12/2024 6:19 AM EST 07/12/2024 6:56 AM EST us Kwesi Guido MD LAB BLOOD ORDERABLES F inal Result [facility] [address] [place] [address], [place] [phone] * (ABNORMAL) Hepatic function panel (07/12/2024 6:19 AM EST) [facility] Total Protein 4.9(L) 6.0 - 8.0 g/dL LAB CHEMISTRY METHOD 07/12/2024 3:26 PM EST [facility] Albumin 1.5(L) 3.2 - 5.0 g/dL LAB CHEMISTRY METHOD 07/12/2024 3:26 PM EST [facility] Total Bilirubin 0.5 0.0 - 1.4 mg/dL LAB CHEMISTRY METHOD 07/12/2024 3:26 PM [facility] Bilirubin, Direct 0.2 0.0 - 0.3 mg/dL LAB CHEMISTRY METHOD 07/12/2024 3:26 PM [facility] Bilirubin, Indirect 0.3 0.0 - 1.1 mg/dL LAB CHEMISTRY METHOD 07/12/2024 3:26 PM [facility] ALT (SGPT) 37 10 - 60 unit/L LAB CHEMISTRY METHOD 07/12/2024 3:26 PM [facility] AST (SGOT) 32 10 - 42 unit/L LAB CHEMISTRY METHOD 07/12/2024 3:26 PM [facility] Alkaline Phosphatase 157(H) 42 - 121 unit/L LAB CHEMISTRY METHOD 07/12/2024 3:26 PM [facility] Blood Venous blood specimen / Unknown Venipuncture / Unknown 07/12/2024 6:19 AM EST 07/12/2024 6:56 AM EST Kwesi Guido MD LAB BLOOD ORDERABLES F inal Result [facility] [address] [place] [address], * (ABNORMAL) Procalcitonin (07/12/2024 6:19 AM EST) Procalcitonin 3.11(H) <=0.16 ng/mL LAB CHEMISTRY METHOD 07/12/2024 12:23 PM [facility] Blood Venous blood specimen / Unknown Venipuncture / Unknown 07/12/2024 6:19 AM EST 07/12/2024 6:56 AM EST [facility] - 07/12/2024 12:23 PM EST [...] ORDERABLES F inal Result Performing Organization Address City/[facility]/ZIP Co de Phone Number [facility] [address] [place] [address], [place] [phone] * (ABNORMAL) C-reactive protein (07/12/2024 6:19 AM EST) [facility] C-Reactive Protein 16.60(H) <=0.50 mg/dL LAB CHEMISTRY METHOD 07/12/2024 10:35 AM EST [facility] Blood Venous blood specimen / Unknown Venipuncture / Unknown 07/12/2024 6:19 AM EST 07/12/2024 6:56 AM EST us Kwesi Guido MD LAB BLOOD ORDERABLES F inal Result Performing Organization Address City/[facility]/ZIP Co de Phone Number [facility] [address] [place] [address], [place] [phone] * (ABNORMAL) CBC auto differential (07/12/2024 6:19 AM EST) [facility] WBC 21.8(H) 4.8 - 10.8 K/mcL LAB HEMETOLOGY METHOD 07/12/2024 7:08 AM [facility] RBC 3.10(L) 3.80 - 4.80 M/mcL LAB HEMETOLOGY METHOD 07/12/2024 7:08 AM [facility] Hemoglobin 7.2(L) 11.5 - 16.0 g/dL LAB HEMETOLOGY METHOD 07/12/2024 7:08 AM [facility] Hematocrit 22.6(L) 35.0 - 47.0 % LAB HEMETOLOGY METHOD 07/12/2024 7:08 AM [facility] MCV 74.1(L) 79.0 - 98.0 FL LAB HEMETOLOGY METHOD 07/12/2024 7:08 AM [facility] MCH 23.6(L) 27.0 - 32.0 pcg LAB HEMETOLOGY METHOD 07/12/2024 7:08 AM [facility] MCHC 31.9(L) 32.0 - 37.0 g/dL LAB HEMETOLOGY METHOD 07/12/2024 7:08 AM [facility] RDW 21.0(H) 11.0 - 15.0 % LAB HEMETOLOGY METHOD 07/12/2024 7:08 AM [facility] Platelets 206 130 - 400 K/mcL LAB HEMETOLOGY METHOD 07/12/2024 7:08 AM [facility] MPV 9.6 7.0 - 11.0 FL LAB HEMETOLOGY METHOD 07/12/2024 7:08 AM [facility] NRBC 0.0 <1.0 % LAB HEMETOLOGY METHOD 07/12/2024 7:08 AM [facility] NRBC Absolute 0.00 <0.10 K/mcL LAB HEMETOLOGY METHOD 07/12/2024 7:08 AM [facility] Neutrophils Relative 86.5 % LAB HEMETOLOGY METHOD 07/12/2024 7:08 AM [facility] Lymphocytes Relative 2.7 % LAB HEMETOLOGY METHOD 07/12/2024 7:08 AM [facility] Monocytes Relative 5.8 % LAB HEMETOLOGY METHOD 07/12/2024 7:08 AM [facility] Eosinophils Relative 2.8 % LAB HEMETOLOGY METHOD 07/12/2024 7:08 AM [facility] Basophils Relative 0.2 % LAB HEMETOLOGY METHOD 07/12/2024 7:08 AM [facility] Immature Granulocytes Relative 2.0 % LAB HEMETOLOGY METHOD 07/12/2024 7:08 AM [facility] Neutrophils Absolute 18.89(H) 1.50 - 7.00 K/mcL LAB HEMETOLOGY METHOD 07/12/2024 7:08 AM [facility] Lymphocytes Absolute 0.59(L) 1.00 - 5.00 K/mcL LAB HEMETOLOGY METHOD 07/12/2024 7:08 AM [facility] Monocytes Absolute 1.27(H) 0.20 - 1.00 K/mcL LAB HEMETOLOGY METHOD 07/12/2024 7:08 AM [facility] Eosinophils Absolute 0.62(H) 0.00 - 0.50 K/mcL LAB HEMETOLOGY METHOD 07/12/2024 7:08 AM [facility] Basophils Absolute 0.04 0.00 - 0.20 K/mcL LAB HEMETOLOGY METHOD 07/12/2024 7:08 AM [facility] Immature Granulocytes Absolute 0.43(H) 0.00 - 0.03 K/mcL LAB HEMETOLOGY METHOD 07/12/2024 7:08 AM [facility] Blood Venous blood specimen / Unknown Venipuncture / Unknown 07/12/2024 6:19 AM EST 07/12/2024 6:58 AM EST us Kwesi Guido MD LAB BLOOD ORDERABLES F inal Result Performing Organization Address City/[facility]/ZIP Co de Phone Number [facility] [address] [place] [address], [place] [phone] * Phosphorus (07/12/2024 6:19 AM EST) Phosphorus 2.9 2.5 - 4.5 mg/dL LAB CHEMISTRY METHOD 07/12/2024 7:48 AM EST [facility] Blood Venous blood specimen / Unknown Venipuncture / Unknown 07/12/2024 6:19 AM EST 07/12/2024 6:56 AM EST us Kwesi Guido MD LAB BLOOD ORDERABLES F inal Result Performing Organization Address [facility] Co de Phone Number [facility] [address] [place] [address], [place] [phone] * (ABNORMAL) Magnesium (07/12/2024 6:19 AM EST) Magnesium 1.8(L) 1.9 - 2.6 mg/dL LAB CHEMISTRY METHOD 07/12/2024 7:48 AM EST [facility] Blood Venous blood specimen / Unknown Venipuncture / Unknown 07/12/2024 6:19 AM EST 07/12/2024 6:56 AM EST us Kwesi Guido MD LAB BLOOD ORDERABLES F inal Result Performing Organization Address City/[facility]/ZIP Co de Phone Number [facility] [address] [place] [address], [place] [phone] * (ABNORMAL) Basic metabolic panel (07/12/2024 6:19 AM EST) Sodium 132(L) 133 - 145 mmol/L LAB CHEMISTRY METHOD 07/12/2024 7:49 AM [facility] Potassium 3.7 3.5 - 5.5 mmol/L LAB CHEMISTRY METHOD 07/12/2024 7:49 AM [facility] Chloride 102 96 - 110 mmol/L LAB CHEMISTRY METHOD 07/12/2024 7:49 AM [facility] CO2 18(L) 21 - 32 mmol/L LAB CHEMISTRY METHOD 07/12/2024 7:49 AM [facility] Anion Gap 12(H) 3 - 11 LAB CHEMISTRY METHOD 07/12/2024 7:49 AM [facility] Glucose 132(H) 70 - 100 mg/dL LAB CHEMISTRY METHOD 07/12/2024 7:49 AM [facility] BUN 70(H) 5 - 25 mg/dL LAB CHEMISTRY METHOD 07/12/2024 7:49 AM [facility] Creatinine 4.64(H) 0.50 - 1.10 mg/dL LAB CHEMISTRY METHOD 07/12/2024 7:49 AM [facility] eGFR 9(L) >=60 mL/min/1. 73m2 LAB CHEMISTRY METHOD 07/12/2024 7:49 AM [facility] Comment:Calculation based on the??Chronic Kidney Disease Epidemiology Collaboration (CKD-EPI) equation refit??without adjustment for race. BUN/Creatinine Ratio 15.1 LAB CHEMISTRY METHOD 07/12/2024 7:49 AM [facility] Calcium 8.1(L) 8.5 - 10.5 mg/dL LAB CHEMISTRY METHOD 07/12/2024 7:49 AM [facility] Blood Venous blood specimen / Unknown Venipuncture / Unknown 07/12/2024 6:19 AM EST 07/12/2024 6:56 AM EST us Kwesi Guido MD LAB BLOOD ORDERABLES F inal Result [facility] [address] [place] [address], [place] [phone] * (ABNORMAL) POCT Glucose, blood (07/11/2024 8:03 PM EST) Glucose POCT 257(H) 70 - 100 mg/dL 07/11/2024 8:04 PM EST [facility] POCT Comment RN Notified 07/11/2024 8:04 PM EST [facility] Blood Capillary blood specimen / Unknown 07/11/2024 8:03 PM EST 07/11/2024 8:05 PM EST us Kwesi Guido MD LAB POINT OF ARE TEST DOCKED DEVICE UNSOLICITED RESULTS Final Result Performing Organization Address [facility]/ZIP Co de Phone Number [facility] [address] [place] [address], [place] [phone] * (ABNORMAL) POCT Glucose, blood (07/11/2024 3:51 PM EST) Glucose POCT 259(H) 70 - 100 mg/dL 07/11/2024 3:51 PM EST [facility] Blood Capillary blood specimen / Unknown 07/11/2024 3:51 PM EST 07/11/2024 3:52 PM EST us Kwesi Guido MD LAB POINT OF ARE TEST DOCKED DEVICE UNSOLICITED RESULTS Final Result Performing Organization Address City/[facility]/ZIP Co de Phone Number [facility] [address] [place] [address], [place] [phone] * (ABNORMAL) POCT Glucose, blood (07/11/2024 11:10 AM EST) Glucose POCT 301(H) 70 - 100 mg/dL 07/11/2024 11:11 AM EST [facility] Blood Capillary blood specimen / Unknown 07/11/2024 11:10 AM EST 07/11/2024 11:13 AM EST us Kwesi Guido MD LAB POINT OF ARE TEST DOCKED DEVICE UNSOLICITED RESULTS Final Result [facility] [address] [place] [address], [place] [phone] * (ABNORMAL) POCT Glucose, blood (07/11/2024 8:17 AM EST) Glucose POCT 191(H) 70 - 100 mg/dL 07/11/2024 8:17 AM EST [facility] Blood Capillary blood specimen / Unknown 07/11/2024 8:17 AM EST 07/11/2024 8:19 AM EST us Kwesi Guido MD LAB POINT OF ARE TEST DOCKED DEVICE UNSOLICITED RESULTS Final Result [facility] [address] [place] [address], [place] [phone] * Pathologist Review Immunofixation (07/11/2024 6:21 AM EST) Pathologist Interpretation Reviewed by Rosenda Galeana MD 07/13/2024 4:13 PM EST [facility] Blood Venous blood specimen / Unknown Venipuncture / Unknown 07/11/2024 6:21 AM EST 07/11/2024 6:43 AM EST us Chencho Wayne MD LAB BLOOD ORDERABLES Final Resu lt [facility] [address] [place] [address], * (ABNORMAL) Hepatic function panel (07/11/2024 6:21 AM EST) Total Protein 5.1(L) 6.0 - 8.0 g/dL LAB CHEMISTRY METHOD 07/12/2024 3:26 PM EST [facility] Albumin 1.5(L) 3.2 - 5.0 g/dL LAB CHEMISTRY METHOD 07/12/2024 3:26 PM EST [facility] Total Bilirubin 0.6 0.0 - 1.4 mg/dL LAB CHEMISTRY METHOD 07/12/2024 3:26 PM [facility] Bilirubin, Direct 0.3 0.0 - 0.3 mg/dL LAB CHEMISTRY METHOD 07/12/2024 3:26 PM EST [facility] Bilirubin, Indirect 0.3 0.0 - 1.1 mg/dL LAB CHEMISTRY METHOD 07/12/2024 3:26 PM EST [facility] ALT (SGPT) 39 10 - 60 unit/L LAB CHEMISTRY METHOD 07/12/2024 3:26 PM [facility] AST (SGOT) 36 10 - 42 unit/L LAB CHEMISTRY METHOD 07/12/2024 3:26 PM EST [facility] Alkaline Phosphatase 168(H) 42 - 121 unit/L LAB CHEMISTRY METHOD 07/12/2024 3:26 PM [facility] Blood Venous blood specimen / Unknown Venipuncture / Unknown 07/11/2024 6:21 AM EST 07/11/2024 6:42 AM EST Kwesi Guido MD LAB BLOOD ORDERABLES F inal Result [facility] [address] [place] [address], [place] [phone] * Immunoglobulins IgG, IgA, IgM (07/11/2024 6:21 AM EST) [facility] Total IgG 1,090 549 - 1,584 mg/dL [...] ORDERABLES Final Resu lt Performing Organization Address City/[facility]/ZIP Co de Phone Number [facility] [address] [place] [address], [place] [phone] * Immunofixation electrophoresis serum (07/11/2024 6:21 AM EST) [facility] Immunofixation Result, Serum Faint restriction of IgG [place], not observed on SPEP . Follow-up in 6 months if clinically indicated. LAB CHEMISTRY METHOD 07/13/2024 4:13 PM EST [facility] Blood Venous blood specimen / Unknown Venipuncture / Unknown 07/11/2024 6:21 AM EST 07/11/2024 6:43 AM EST us Chencho Wayne MD LAB BLOOD ORDERABLES Final Resu lt [facility] [address] [place] [address], [place] [phone] * (ABNORMAL) CBC auto differential (07/11/2024 6:21 AM EST) [facility] WBC 18.4(H) 4.8 - 10.8 K/mcL LAB HEMETOLOGY METHOD 07/11/2024 6:52 AM [facility] RBC 3.20(L) 3.80 - 4.80 M/mcL LAB HEMETOLOGY METHOD 07/11/2024 6:52 AM [facility] Hemoglobin 7.4(L) 11.5 - 16.0 g/dL LAB HEMETOLOGY METHOD 07/11/2024 6:52 AM [facility] Hematocrit 23.7(L) 35.0 - 47.0 % LAB HEMETOLOGY METHOD 07/11/2024 6:52 AM [facility] MCV 75.0(L) 79.0 - 98.0 FL LAB HEMETOLOGY METHOD 07/11/2024 6:52 AM [facility] MCH 23.4(L) 27.0 - 32.0 pcg LAB HEMETOLOGY METHOD 07/11/2024 6:52 AM [facility] MCHC 31.2(L) 32.0 - 37.0 g/dL LAB HEMETOLOGY METHOD 07/11/2024 6:52 AM [facility] RDW 20.2(H) 11.0 - 15.0 % LAB HEMETOLOGY METHOD 07/11/2024 6:52 AM [facility] Platelets 211 130 - 400 K/mcL LAB HEMETOLOGY METHOD 07/11/2024 6:52 AM [facility] MPV 9.1 7.0 - 11.0 FL LAB HEMETOLOGY METHOD 07/11/2024 6:52 AM [facility] NRBC 0.0 <1.0 % LAB HEMETOLOGY METHOD 07/11/2024 6:52 AM [facility] NRBC Absolute 0.00 <0.10 K/mcL LAB HEMETOLOGY METHOD 07/11/2024 6:52 AM [facility] Neutrophils Relative 86.2 % LAB HEMETOLOGY METHOD 07/11/2024 6:52 AM [facility] Lymphocytes Relative 3.0 % LAB HEMETOLOGY METHOD 07/11/2024 6:52 AM [facility] Monocytes Relative 5.9 % LAB HEMETOLOGY METHOD 07/11/2024 6:52 AM [facility] Eosinophils Relative 3.3 % LAB HEMETOLOGY METHOD 07/11/2024 6:52 AM [facility] Basophils Relative 0.2 % LAB HEMETOLOGY METHOD 07/11/2024 6:52 AM [facility] Immature Granulocytes Relative 1.4 % LAB HEMETOLOGY METHOD 07/11/2024 6:52 AM [facility] Neutrophils Absolute 15.84(H) 1.50 - 7.00 K/mcL LAB HEMETOLOGY METHOD 07/11/2024 6:52 AM [facility] Lymphocytes Absolute 0.56(L) 1.00 - 5.00 K/mcL LAB HEMETOLOGY METHOD 07/11/2024 6:52 AM [facility] Monocytes Absolute 1.09(H) 0.20 - 1.00 K/mcL LAB HEMETOLOGY METHOD 07/11/2024 6:52 AM [facility] Eosinophils Absolute 0.61(H) 0.00 - 0.50 K/mcL LAB HEMETOLOGY METHOD 07/11/2024 6:52 AM [facility] Basophils Absolute 0.04 0.00 - 0.20 K/mcL LAB HEMETOLOGY METHOD 07/11/2024 6:52 AM [facility] Immature Granulocytes Absolute 0.26(H) 0.00 - 0.03 K/mcL LAB HEMETOLOGY METHOD 07/11/2024 6:52 AM [facility] Blood Venous blood specimen / Unknown Venipuncture / Unknown 07/11/2024 6:21 AM EST 07/11/2024 6:41 AM EST us Maria Alejandra Melendez MD LAB BLOOD ORDERABLES Final Res ult [facility] [address] [place] [address], * (ABNORMAL) Basic metabolic panel (07/11/2024 6:21 AM EST) Sodium 130(L) 133 - 145 mmol/L LAB CHEMISTRY METHOD 07/11/2024 7:27 AM [facility] Potassium 3.7 3.5 - 5.5 mmol/L LAB CHEMISTRY METHOD 07/11/2024 7:27 AM [facility] Chloride 102 96 - 110 mmol/L LAB CHEMISTRY METHOD 07/11/2024 7:27 AM [facility] CO2 19(L) 21 - 32 mmol/L LAB CHEMISTRY METHOD 07/11/2024 7:27 AM [facility] Anion Gap 9 3 - 11 LAB CHEMISTRY METHOD 07/11/2024 7:27 AM [facility] Glucose 174(H) 70 - 100 mg/dL LAB CHEMISTRY METHOD 07/11/2024 7:27 AM [facility] BUN 69(H) 5 - 25 mg/dL LAB CHEMISTRY METHOD 07/11/2024 7:27 AM [facility] Creatinine 4.36(H) 0.50 - 1.10 mg/dL LAB CHEMISTRY METHOD 07/11/2024 7:27 AM [facility] eGFR 10(L) >=60 mL/min/1. 73m2 LAB CHEMISTRY METHOD 07/11/2024 7:27 AM [facility] Comment:Calculation based on the??Chronic Kidney Disease Epidemiology Collaboration (CKD-EPI) equation refit??without adjustment for race. BUN/Creatinine Ratio 15.8 LAB CHEMISTRY METHOD 07/11/2024 7:27 AM EST [facility] Calcium 8.2(L) 8.5 - 10.5 mg/dL LAB CHEMISTRY METHOD 07/11/2024 7:27 AM EST [facility] Blood Venous blood specimen / Unknown Venipuncture / Unknown 07/11/2024 6:21 AM EST 07/11/2024 6:42 AM EST Maria Alejandra Melendez MD LAB BLOOD ORDERABLES Final Res ult [facility] [address] [place] [address], [place] [phone] * (ABNORMAL) POCT Glucose, blood (07/10/2024 8:33 PM EST) Glucose POCT 325(H) 70 - 100 mg/dL 07/10/2024 8:34 PM EST [facility] Blood Capillary blood specimen / Unknown 07/10/2024 8:33 PM EST 07/10/2024 8:35 PM EST Maria Alejandra Melendez MD LAB POINT OF CARE TE ST DOCKED DEVICE UNSOLICITED RESULTS Final Result [facility] [address] [place] [address], [place] [phone] * (ABNORMAL) POCT Glucose, blood (07/10/2024 4:11 PM EST) Glucose POCT 287(H) 70 - 100 mg/dL 07/10/2024 4:12 PM EST [facility] Blood Capillary blood specimen / Unknown 07/10/2024 4:11 PM EST 07/10/2024 4:13 PM EST Maria Alejandra Melendez MD LAB POINT OF CARE TE ST DOCKED DEVICE UNSOLICITED RESULTS Final Result [facility] [address] [place] [address], [place] [phone] * (ABNORMAL) POCT Glucose, blood (07/10/2024 11:29 AM EST) Glucose POCT 214(H) 70 - 100 mg/dL 07/10/2024 11:45 AM EST [facility] Blood Capillary blood specimen / Unknown 07/10/2024 11:29 AM EST 07/10/2024 11:47 AM EST Maria Alejandra Melendez MD LAB POINT OF CARE TE ST DOCKED DEVICE UNSOLICITED RESULTS Final Result Performing Organization Address City/[facility]/ZIP Co de Phone Number [facility] [address] [place] [address], [place] [phone] * (ABNORMAL) POCT Glucose, blood (07/10/2024 8:40 AM EST) Glucose POCT 164(H) 70 - 100 mg/dL 07/10/2024 8:42 AM EST [facility] Blood Capillary blood specimen / Unknown 07/10/2024 8:40 AM EST 07/10/2024 8:43 AM EST Maria Alejandra Melendez MD LAB POINT OF CARE TE ST DOCKED DEVICE UNSOLICITED RESULTS Final Result [facility] [address] [place] [address], [place] [phone] * (ABNORMAL) Triiodothyronine free (07/10/2024 5:16 AM EST) T3, Free 154(L) 230 - 420 pcg/dL LAB CHEMISTRY METHOD 07/10/2024 2:10 PM EST [facility] Blood Venous blood specimen / Unknown Venipuncture / Unknown 07/10/2024 5:16 AM EST 07/10/2024 6:42 AM EST Maria Alejandra Melendez MD LAB BLOOD ORDERABLES Final Res ult Performing Organization Address City/[facility]/ZIP Co de Phone Number [facility] [address] [place] [address], [place] [phone] * Thyroxine free (07/10/2024 5:16 AM EST) Free T4 0.92 0.70 - 1.80 ng/dL LAB CHEMISTRY METHOD 07/10/2024 2:04 PM EST [facility] Blood Venous blood specimen / Unknown Venipuncture / Unknown 07/10/2024 5:16 AM EST 07/10/2024 6:42 AM EST us Maria Alejandra Melendez MD LAB BLOOD ORDERABLES Final Res ult Performing Organization Address [facility]/ZIP Co de Phone Number [facility] [address] [place] [address], [place] [phone] * (ABNORMAL) Parathyroid hormone intact (07/10/2024 5:16 AM EST) PTH 10.5(L) 18.5 - 88.0 pcg/mL LAB CHEMISTRY METHOD 07/10/2024 1:47 PM EST [facility] Blood Venous blood specimen / Unknown Venipuncture / Unknown 07/10/2024 5:16 AM EST 07/10/2024 6:42 AM EST Maria Alejandra Melendez MD LAB BLOOD ORDERABLES Final Res ult [facility] [address] [place] [address], [place] [phone] * (ABNORMAL) CBC auto differential (07/10/2024 5:16 AM EST) [facility] WBC 16.9(H) 4.8 - 10.8 K/mcL LAB HEMETOLOGY METHOD 07/10/2024 7:29 AM [facility] RBC 3.30(L) 3.80 - 4.80 M/mcL LAB HEMETOLOGY METHOD 07/10/2024 7:29 AM [facility] Hemoglobin 7.6(L) 11.5 - 16.0 g/dL LAB HEMETOLOGY METHOD 07/10/2024 7:29 AM [facility] Hematocrit 24.4(L) 35.0 - 47.0 % LAB HEMETOLOGY METHOD 07/10/2024 7:29 AM [facility] MCV 74.4(L) 79.0 - 98.0 FL LAB HEMETOLOGY METHOD 07/10/2024 7:29 AM [facility] MCH 23.2(L) 27.0 - 32.0 pcg LAB HEMETOLOGY METHOD 07/10/2024 7:29 AM [facility] MCHC 31.1(L) 32.0 - 37.0 g/dL LAB HEMETOLOGY METHOD 07/10/2024 7:29 AM [facility] RDW 19.8(H) 11.0 - 15.0 % LAB HEMETOLOGY METHOD 07/10/2024 7:29 AM [facility] Platelets 277 130 - 400 K/mcL LAB HEMETOLOGY METHOD 07/10/2024 7:29 AM [facility] MPV 9.1 7.0 - 11.0 FL LAB HEMETOLOGY METHOD 07/10/2024 7:29 AM [facility] NRBC 0.0 <1.0 % LAB HEMETOLOGY METHOD 07/10/2024 7:29 AM [facility] NRBC Absolute 0.00 <0.10 K/mcL LAB HEMETOLOGY METHOD 07/10/2024 7:29 AM [facility] Neutrophils Relative 86.9 % LAB HEMETOLOGY METHOD 07/10/2024 7:29 AM [facility] Lymphocytes Relative 3.2 % LAB HEMETOLOGY METHOD 07/10/2024 7:29 AM [facility] Monocytes Relative 5.9 % LAB HEMETOLOGY METHOD 07/10/2024 7:29 AM [facility] Eosinophils Relative 2.8 % LAB HEMETOLOGY METHOD 07/10/2024 7:29 AM [facility] Basophils Relative 0.2 % LAB HEMETOLOGY METHOD 07/10/2024 7:29 AM [facility] Immature Granulocytes Relative 1.0 % LAB HEMETOLOGY METHOD 07/10/2024 7:29 AM [facility] Neutrophils Absolute 14.72(H) 1.50 - 7.00 K/mcL LAB HEMETOLOGY METHOD 07/10/2024 7:29 AM [facility] Lymphocytes Absolute 0.54(L) 1.00 - 5.00 K/mcL LAB HEMETOLOGY METHOD 07/10/2024 7:29 AM [facility] Monocytes Absolute 1.00 0.20 - 1.00 K/mcL LAB HEMETOLOGY METHOD 07/10/2024 7:29 AM [facility] Eosinophils Absolute 0.47 0.00 - 0.50 K/mcL LAB HEMETOLOGY METHOD 07/10/2024 7:29 AM [facility] Basophils Absolute 0.04 0.00 - 0.20 K/mcL LAB HEMETOLOGY METHOD 07/10/2024 7:29 AM [facility] Immature Granulocytes Absolute 0.17(H) 0.00 - 0.03 K/mcL LAB HEMETOLOGY METHOD 07/10/2024 7:29 AM EST [facility] Blood Venous blood specimen / Unknown Venipuncture / Unknown 07/10/2024 5:16 AM EST 07/10/2024 6:43 AM EST Maria Alejandra Melendez MD LAB BLOOD ORDERABLES Final Res ult Performing Organization Address [facility]/ZIP Co de Phone Number [facility] [address] [place] [address], [place] [phone] * (ABNORMAL) Magnesium (07/10/2024 5:16 AM EST) Pathologist [facility] Magnesium 1.8(L) 1.9 - 2.6 mg/dL LAB CHEMISTRY METHOD 07/10/2024 7:38 AM [facility] Blood Venous blood specimen / Unknown Venipuncture / Unknown 07/10/2024 5:16 AM EST 07/10/2024 6:42 AM EST Maria Alejandra Melendez MD LAB BLOOD ORDERABLES Final Res ult Performing Organization Address City/[facility]/ZIP Co de Phone Number [facility] [address] [place] [address], [place] [phone] * (ABNORMAL) Basic metabolic panel (07/10/2024 5:16 AM EST) Pathologist [facility] Sodium 133 133 - 145 mmol/L LAB CHEMISTRY METHOD 07/10/2024 7:39 AM EST [facility] Potassium 3.8 3.5 - 5.5 mmol/L LAB CHEMISTRY METHOD 07/10/2024 7:39 AM [facility] Chloride 105 96 - 110 mmol/L LAB CHEMISTRY METHOD 07/10/2024 7:39 AM [facility] CO2 20(L) 21 - 32 mmol/L LAB CHEMISTRY METHOD 07/10/2024 7:39 AM [facility] Anion Gap 8 3 - 11 LAB CHEMISTRY METHOD 07/10/2024 7:39 AM [facility] Glucose 167(H) 70 - 100 mg/dL LAB CHEMISTRY METHOD 07/10/2024 7:39 AM [facility] BUN 65(H) 5 - 25 mg/dL LAB CHEMISTRY METHOD 07/10/2024 7:39 AM [facility] Creatinine 4.19(H) 0.50 - 1.10 mg/dL LAB CHEMISTRY METHOD 07/10/2024 7:39 AM [facility] eGFR 10(L) >=60 mL/min/1. 73m2 LAB CHEMISTRY METHOD 07/10/2024 7:39 AM [facility] Comment:Calculation based on the??Chronic Kidney Disease Epidemiology Collaboration (CKD-EPI) equation refit??without adjustment for race. BUN/Creatinine Ratio 15.5 LAB CHEMISTRY METHOD 07/10/2024 7:39 AM [facility] Calcium 8.5 8.5 - 10.5 mg/dL LAB CHEMISTRY METHOD 07/10/2024 7:39 AM [facility] Blood Venous blood specimen / Unknown Venipuncture / Unknown 07/10/2024 5:16 AM EST 07/10/2024 6:42 AM EST us Maria Alejandra Melendez MD LAB BLOOD ORDERABLES Final Res ult [facility] [address] [place] [address], * (ABNORMAL) POCT Glucose, blood (07/09/2024 7:52 PM EST) Glucose POCT 243(H) 70 - 100 mg/dL 07/09/2024 7:53 PM EST [facility] Blood Capillary blood specimen / Unknown 07/09/2024 7:52 PM EST 07/09/2024 7:54 PM EST us Maria Alejandra Melendez MD LAB POINT OF CARE TE ST DOCKED DEVICE UNSOLICITED RESULTS Final Result [facility] [address] [place] [address], [place] [phone] * (ABNORMAL) POCT Glucose, blood (07/09/2024 4:27 PM EST) Glucose POCT 264(H) 70 - 100 mg/dL 07/09/2024 4:28 PM EST [facility] Blood Capillary blood specimen / Unknown 07/09/2024 4:27 PM EST 07/09/2024 4:29 PM EST us Maria Alejandra Melendez MD LAB POINT OF CARE TE ST DOCKED DEVICE UNSOLICITED RESULTS Final Result Performing Organization Address City/[facility]/ZIP Co de Phone Number [facility] [address] [place] [address], [place] [phone] * (ABNORMAL) POCT Glucose, blood (07/09/2024 11:33 AM EST) Glucose POCT 179(H) 70 - 100 mg/dL 07/09/2024 11:34 AM EST [facility] Blood Capillary blood specimen / Unknown 07/09/2024 11:33 AM EST 07/09/2024 11:35 AM EST us Maria Alejandra Melendez MD LAB POINT OF CARE TE ST DOCKED DEVICE UNSOLICITED RESULTS Final Result [facility] [address] [place] [address], [place] [phone] * (ABNORMAL) POCT Glucose, blood (07/09/2024 8:59 AM EST) Glucose POCT 175(H) 70 - 100 mg/dL 07/09/2024 9:06 AM [facility] Blood Capillary blood specimen / Unknown 07/09/2024 8:59 AM EST 07/09/2024 9:08 AM EST us Maria Alejandra Melendez MD LAB POINT OF CARE TE ST DOCKED DEVICE UNSOLICITED RESULTS Final Result [facility] [address] [place] [address], * (ABNORMAL) CBC auto differential (07/09/2024 6:25 AM EST) WBC 18.4(H) 4.8 - 10.8 K/mcL LAB HEMETOLOGY METHOD 07/09/2024 8:05 AM [facility] RBC 3.50(L) 3.80 - 4.80 M/mcL LAB HEMETOLOGY METHOD 07/09/2024 8:05 AM [facility] Hemoglobin 8.3(L) 11.5 - 16.0 g/dL LAB HEMETOLOGY METHOD 07/09/2024 8:05 AM [facility] Hematocrit 26.1(L) 35.0 - 47.0 % LAB HEMETOLOGY METHOD 07/09/2024 8:05 AM [facility] MCV 74.4(L) 79.0 - 98.0 FL LAB HEMETOLOGY METHOD 07/09/2024 8:05 AM [facility] MCH 23.6(L) 27.0 - 32.0 pcg LAB HEMETOLOGY METHOD 07/09/2024 8:05 AM [facility] MCHC 31.8(L) 32.0 - 37.0 g/dL LAB HEMETOLOGY METHOD 07/09/2024 8:05 AM [facility] RDW 19.2(H) 11.0 - 15.0 % LAB HEMETOLOGY METHOD 07/09/2024 8:05 AM [facility] Platelets 333 130 - 400 K/mcL LAB HEMETOLOGY METHOD 07/09/2024 8:05 AM [facility] MPV 9.1 7.0 - 11.0 FL LAB HEMETOLOGY METHOD 07/09/2024 8:05 AM [facility] NRBC 0.0 <1.0 % LAB HEMETOLOGY METHOD 07/09/2024 8:05 AM [facility] NRBC Absolute 0.00 <0.10 K/mcL LAB HEMETOLOGY METHOD 07/09/2024 8:05 AM [facility] Neutrophils Relative 89.0 % LAB HEMETOLOGY METHOD 07/09/2024 8:05 AM [facility] Lymphocytes Relative 2.8 % LAB HEMETOLOGY METHOD 07/09/2024 8:05 AM [facility] Monocytes Relative 6.1 % LAB HEMETOLOGY METHOD 07/09/2024 8:05 AM [facility] Eosinophils Relative 1.1 % LAB HEMETOLOGY METHOD 07/09/2024 8:05 AM [facility] Basophils Relative 0.2 % LAB HEMETOLOGY METHOD 07/09/2024 8:05 AM [facility] Immature Granulocytes Relative 0.8 % LAB HEMETOLOGY METHOD 07/09/2024 8:05 AM [facility] Neutrophils Absolute 16.38(H) 1.50 - 7.00 K/mcL LAB HEMETOLOGY METHOD 07/09/2024 8:05 AM [facility] Lymphocytes Absolute 0.52(L) 1.00 - 5.00 K/mcL LAB HEMETOLOGY METHOD 07/09/2024 8:05 AM [facility] Monocytes Absolute 1.13(H) 0.20 - 1.00 K/mcL LAB HEMETOLOGY METHOD 07/09/2024 8:05 AM EST [facility] Eosinophils Absolute 0.21 0.00 - 0.50 K/[facility] LAB HEMETOLOGY METHOD 07/09/2024 8:05 AM EST [facility] Basophils Absolute 0.03 0.00 - 0.20 K/[facility] LAB HEMETOLOGY METHOD 07/09/2024 8:05 AM EST [facility] Immature Granulocytes Absolute 0.14(H) 0.00 - 0.03 K/[facility] HEMETOLOGY METHOD 07/09/2024 8:05 AM [facility] Blood Venous blood specimen / Unknown Venipuncture / Unknown 07/09/2024 6:25 AM EST 07/09/2024 7:11 AM EST Aye [facility] LAB BLOOD ORDERABLES Final Re sult Performing Organization Address City/[facility]/ZIP Co de Phone Number [facility] [address] [place] [address], [place] [phone] * Creatine kinase (07/09/2024 6:25 AM EST) [facility] Total CK 172 22 - 269 unit/L LAB CHEMISTRY METHOD 07/09/2024 8:11 AM EST [facility] Blood Venous blood specimen / Unknown Venipuncture / Unknown 07/09/2024 6:25 AM EST 07/09/2024 7:11 AM EST Aye [facility] LAB BLOOD ORDERABLES Final Re sult [facility] [address] [place] [address], [place] [phone] * (ABNORMAL) Calcium, ionized (07/09/2024 6:25 AM EST) Calcium Ionized 5.66(H) 4.50 - 5.30 mg/dL 07/09/2024 7:23 AM EST [facility] Blood Venous blood specimen / Unknown Venipuncture / Unknown 07/09/2024 6:25 AM EST 07/09/2024 7:11 AM EST [facility] BLOOD ORDERABLES Final Re sult [facility] [address] [place] [address], [place] [phone] * Magnesium (07/09/2024 6:25 AM EST) Pathologist [facility] Magnesium 2.0 1.9 - 2.6 mg/dL LAB CHEMISTRY METHOD 07/09/2024 8:11 AM [facility] Blood Venous blood specimen / Unknown Venipuncture / Unknown 07/09/2024 6:25 AM EST 07/09/2024 7:11 AM EST [facility] BLOOD ORDERABLES Final Re sult [facility] [address] [place] [address], [place] [phone] * (ABNORMAL) Basic metabolic panel (07/09/2024 6:25 AM EST) Sodium 131(L) 133 - 145 mmol/L LAB CHEMISTRY METHOD 07/09/2024 8:12 AM EST [facility] Potassium 3.8 3.5 - 5.5 mmol/L LAB CHEMISTRY METHOD 07/09/2024 8:12 AM EST [facility] Chloride 101 96 - 110 mmol/L LAB CHEMISTRY METHOD 07/09/2024 8:12 AM [facility] CO2 21 21 - 32 mmol/L LAB CHEMISTRY METHOD 07/09/2024 8:12 AM EST [facility] Anion Gap 9 3 - 11 LAB CHEMISTRY METHOD 07/09/2024 8:12 AM [facility] Glucose 170(H) 70 - 100 mg/dL LAB CHEMISTRY METHOD 07/09/2024 8:12 AM [facility] BUN 63(H) 5 - 25 mg/dL LAB CHEMISTRY METHOD 07/09/2024 8:12 AM [facility] Creatinine 4.07(H) 0.50 - 1.10 mg/dL LAB CHEMISTRY METHOD 07/09/2024 8:12 AM [facility] eGFR 11(L) >=60 mL/min/1. 73m2 LAB CHEMISTRY METHOD 07/09/2024 8:12 AM [facility] Comment:Calculation based on the??Chronic Kidney Disease Epidemiology Collaboration (CKD-EPI) equation refit??without adjustment for race. BUN/Creatinine Ratio 15.5 LAB CHEMISTRY METHOD 07/09/2024 8:12 AM [facility] Calcium 9.5 8.5 - 10.5 mg/dL LAB CHEMISTRY METHOD 07/09/2024 8:12 AM [facility] Blood Venous blood specimen / Unknown Venipuncture / Unknown 07/09/2024 6:25 AM EST 07/09/2024 7:11 AM EST us Aye HEDR[facility] LAB BLOOD ORDERABLES Final Re sult [facility] [address] [place] [address], * XR Chest 1 View (07/08/2024 10:00 [...] Signed Date: 07/09/2024 09:03 ET Workstation ID: [id number] Transcribed By: Self Edit Transcribed Date: 07/09/2024 [...] Signed Date: 07/09/2024 09:03 ET Workstation ID: [id number] Transcribed By: Self Edit Transcribed Date: 07/09/2024 [...] Re sult [facility] [address] [place] [address], * Culture blood (07/08/2024 9:49 PM EST) Culture, Blood No growth at 5 days 07/13/2024 10:01 PM EST [facility] Blood Venous blood specimen / Unknown Venipuncture / Unknown 07/08/2024 9:49 PM EST 07/08/2024 9:54 PM EST us Aye [facility] LAB MICROBIOLOGY - GENERAL OR DERABLES Final Result [facility] [address] [place] [address], [place] [phone] * Lactate (07/08/2024 9:42 PM EST) Lactate 1.3 mmol/L 07/08/2024 10:30 PM EST [facility] Blood Venous blood specimen / Unknown Venipuncture / Unknown 07/08/2024 9:42 PM EST 07/08/2024 9:54 PM EST us Aye H[facility] LAB BLOOD ORDERABLES Final Re sult Performing Organization Address City/[facility]/ZIP Co de Phone Number [facility] [address] [place] [address], [place] [phone] * Culture blood (07/08/2024 9:37 PM EST) Culture, Blood No growth at 5 days 07/13/2024 10:01 PM EST [facility] Blood Venous blood specimen / Unknown Venipuncture / Unknown 07/08/2024 9:37 PM EST 07/08/2024 9:56 PM EST us Aye [facility] LAB MICROBIOLOGY - GENERAL OR DERABLES Final Result [facility] [address] [place] [address], [place] [phone] * (ABNORMAL) POCT Glucose, blood (07/08/2024 8:46 PM EST) [facility] Glucose POCT 264(H) 70 - 100 mg/dL 07/08/2024 8:46 PM [facility] Blood Capillary blood specimen / Unknown 07/08/2024 8:46 PM EST 07/08/2024 8:47 PM EST Wayne Donahue MD LAB POINT OF CARE TE ST DOCKED DEVICE UNSOLICITED RESULTS Final Result [facility] [address] [place] [address], [place] [phone] * (ABNORMAL) Basic metabolic panel (07/08/2024 8:30 PM EST) [facility] Sodium 130(L) 133 - 145 mmol/L LAB CHEMISTRY METHOD 07/08/2024 11:37 PM [facility] Potassium 4.0 3.5 - 5.5 mmol/L LAB CHEMISTRY METHOD 07/08/2024 11:37 PM [facility] Chloride 98 96 - 110 mmol/L LAB CHEMISTRY METHOD 07/08/2024 11:37 PM [facility] CO2 22 21 - 32 mmol/L LAB CHEMISTRY METHOD 07/08/2024 11:37 PM [facility] Anion Gap 10 3 - 11 LAB CHEMISTRY METHOD 07/08/2024 11:37 PM [facility] Glucose 261(H) 70 - 100 mg/dL LAB CHEMISTRY METHOD 07/08/2024 11:37 PM [facility] BUN 64(H) 5 - 25 mg/dL LAB CHEMISTRY METHOD 07/08/2024 11:37 PM [facility] Creatinine 4.32(H) 0.50 - 1.10 mg/dL LAB CHEMISTRY METHOD 07/08/2024 11:37 PM EST [facility] eGFR 10(L) >=60 mL/min/1. 73m2 LAB CHEMISTRY METHOD 07/08/2024 11:37 PM EST [facility] Comment:Calculation based on the??Chronic Kidney Disease Epidemiology Collaboration (CKD-EPI) equation refit??without adjustment for race. BUN/Creatinine Ratio 14.8 LAB CHEMISTRY METHOD 07/08/2024 11:37 PM EST [facility] Calcium 10.3 8.5 - 10.5 mg/dL LAB CHEMISTRY METHOD 07/08/2024 11:37 PM [facility] Blood Venous blood specimen / Unknown Venipuncture / Unknown 07/08/2024 8:30 PM EST 07/08/2024 8:37 PM EST [facility] BLOOD ORDERABLES Final Re sult [facility] [address] [place] [address], * (ABNORMAL) Complete blood count (07/08/2024 8:30 PM EST) WBC 20.5(H) 4.8 - 10.8 K/mcL LAB HEMETOLOGY METHOD 07/08/2024 8:56 PM [facility] RBC 4.00 3.80 - 4.80 M/mcL LAB HEMETOLOGY METHOD 07/08/2024 8:56 PM [facility] Hemoglobin 9.2(L) 11.5 - 16.0 g/dL LAB HEMETOLOGY METHOD 07/08/2024 8:56 PM [facility] Hematocrit 30.0(L) 35.0 - 47.0 % LAB HEMETOLOGY METHOD 07/08/2024 8:56 PM [facility] MCV 75.8(L) 79.0 - 98.0 FL LAB HEMETOLOGY METHOD 07/08/2024 8:56 PM EST [facility] MCH 23.2(L) 27.0 - 32.0 pcg LAB HEMETOLOGY METHOD 07/08/2024 8:56 PM EST [facility] MCHC 30.7(L) 32.0 - 37.0 g/dL LAB HEMETOLOGY METHOD 07/08/2024 8:56 PM EST [facility] RDW 19.9(H) 11.0 - 15.0 % LAB HEMETOLOGY METHOD 07/08/2024 8:56 PM EST [facility] Platelets 332 130 - 400 K/mcL LAB HEMETOLOGY METHOD 07/08/2024 8:56 PM EST [facility] MPV 8.6 7.0 - 11.0 FL LAB HEMETOLOGY METHOD 07/08/2024 8:56 PM EST [facility] NRBC 0.0 <1.0 % LAB HEMETOLOGY METHOD 07/08/2024 8:56 PM EST [facility] NRBC Absolute 0.00 <0.10 K/mcL LAB HEMETOLOGY METHOD 07/08/2024 8:56 PM EST [facility] Blood Venous blood specimen / Unknown Venipuncture / Unknown 07/08/2024 8:30 PM EST 07/08/2024 8:37 PM EST us Aye [facility] LAB BLOOD ORDERABLES Final Re sult [facility] [address] [place] [address], * (ABNORMAL) Electrolyte panel (07/08/2024 8:30 PM EST) Sodium 130(L) 133 - 145 mmol/L LAB CHEMISTRY METHOD 07/08/2024 11:37 PM EST [facility] Potassium 4.0 3.5 - 5.5 mmol/L LAB CHEMISTRY METHOD 07/08/2024 11:37 PM EST [facility] Chloride 98 96 - 110 mmol/L LAB CHEMISTRY METHOD 07/08/2024 11:37 PM EST [facility] CO2 22 21 - 32 mmol/L LAB CHEMISTRY METHOD 07/08/2024 11:37 PM EST [facility] Anion Gap 10 3 - 11 LAB CHEMISTRY METHOD 07/08/2024 11:37 PM EST [facility] Blood Venous blood specimen / Unknown Venipuncture / Unknown 07/08/2024 8:30 PM EST 07/08/2024 8:37 PM EST us Aye HEDR[facility] LAB BLOOD ORDERABLES Final Re sult [facility] [address] [place] [address], [place] [phone] * Transfuse RBC (07/08/2024 6:45 PM EST) us Raya HEDRICK BLOOD TRANSFUSION ORDE RABDIEGO Final Result * Transfuse RBC: 1 Units (07/08/2024 6:45 PM EST) us Raya H[facility] BLOOD TRANSFUSION ORDE RABLES Final Result * (ABNORMAL) POCT Glucose, blood (07/08/2024 6:19 PM EST) [facility] Signature Glucose POCT 276(H) 70 - 100 mg/dL 07/08/2024 6:19 PM EST [facility] Blood Capillary blood specimen / Unknown 07/08/2024 6:19 PM EST 07/08/2024 6:20 PM EST us Wayne Donahue MD LAB POINT OF CARE TE ST DOCKED DEVICE UNSOLICITED RESULTS Final Result [facility] [address] [place] [address], [place] [phone] * PATHOLOGIST REVIEW PROTEIN ELECTROPHORESIS (07/08/2024 5:52 PM EST) [facility] Pathologist Interpretation Reviewed by Rosenda Galeana MD 07/14/2024 9:21 AM EST [facility] Blood Venous blood specimen / Unknown Venipuncture / Unknown 07/08/2024 5:52 PM EST 07/08/2024 6:00 PM EST [facility] LAB BLOOD ORDERABLES Final Re sult [facility] [address] [place] [address], [place] [phone] * Protein, total (07/08/2024 5:52 PM EST) [facility] Total Protein 6.4 6.0 - 8.0 g/dL LAB CHEMISTRY METHOD 07/08/2024 6:30 PM EST [facility] Blood Venous blood specimen / Unknown Venipuncture / Unknown 07/08/2024 5:52 PM EST 07/08/2024 6:00 PM EST us Aye H[facility] LAB BLOOD ORDERABLES Final Re sult [facility] [address] [place] [address], [place] [phone] * (ABNORMAL) Basic metabolic panel (07/08/2024 5:52 PM EST) [facility] Sodium 128(L) 133 - 145 mmol/L LAB CHEMISTRY METHOD 07/08/2024 6:50 PM EST [facility] Potassium 4.0 3.5 - 5.5 mmol/L LAB CHEMISTRY METHOD 07/08/2024 6:50 PM EST [facility] Chloride 96 96 - 110 mmol/L LAB CHEMISTRY METHOD 07/08/2024 6:50 PM [facility] CO2 25 21 - 32 mmol/L LAB CHEMISTRY METHOD 07/08/2024 6:50 PM [facility] Anion Gap 7 3 - 11 LAB CHEMISTRY METHOD 07/08/2024 6:50 PM [facility] Glucose 259(H) 70 - 100 mg/dL LAB CHEMISTRY METHOD 07/08/2024 6:50 PM [facility] BUN 67(H) 5 - 25 mg/dL LAB CHEMISTRY METHOD 07/08/2024 6:50 PM [facility] Creatinine 4.12(H) 0.50 - 1.10 mg/dL LAB CHEMISTRY METHOD 07/08/2024 6:50 PM [facility] eGFR 10(L) >=60 mL/min/1. 73m2 LAB CHEMISTRY METHOD 07/08/2024 6:50 PM [facility] Comment:Calculation based on the??Chronic Kidney Disease Epidemiology Collaboration (CKD-EPI) equation refit??without adjustment for race. BUN/Creatinine Ratio 16.3 LAB CHEMISTRY METHOD 07/08/2024 6:50 PM [facility] Calcium 10.8(H) 8.5 - 10.5 mg/dL LAB CHEMISTRY METHOD 07/08/2024 6:50 PM [facility] Blood Venous blood specimen / Unknown Venipuncture / Unknown 07/08/2024 5:52 PM EST 07/08/2024 6:00 PM EST us Aye [facility] LAB BLOOD ORDERABLES Final Re sult [facility] [address] [place] [address], * (ABNORMAL) Serum albumin (07/08/2024 5:52 PM EST) Albumin 2.1(L) 3.2 - 5.0 g/dL LAB CHEMISTRY METHOD 07/08/2024 6:34 PM EST [facility] Blood Venous blood specimen / Unknown Venipuncture / Unknown 07/08/2024 5:52 PM EST 07/08/2024 6:00 PM EST [facility]ye [facility] BLOOD ORDERABLES Final Re sult Performing Organization Address City/[facility]/ZIP Co de Phone Number [facility] [address] [place] [address], [place] [phone] * (ABNORMAL) Electrolyte panel (07/08/2024 5:52 PM EST) [facility] Sodium 128(L) 133 - 145 mmol/L LAB CHEMISTRY METHOD 07/08/2024 6:34 PM [facility] Potassium 4.0 3.5 - 5.5 mmol/L LAB CHEMISTRY METHOD 07/08/2024 6:34 PM [facility] Chloride 96 96 - 110 mmol/L LAB CHEMISTRY METHOD 07/08/2024 6:34 PM [facility] CO2 25 21 - 32 mmol/L LAB CHEMISTRY METHOD 07/08/2024 6:34 PM [facility] Anion Gap 7 3 - 11 LAB CHEMISTRY METHOD 07/08/2024 6:34 PM EST [facility] Blood Venous blood specimen / Unknown Venipuncture / Unknown 07/08/2024 5:52 PM EST 07/08/2024 6:00 PM EST [facility] BLOOD ORDERABLES Final Re sult [facility] [address] [place] [address], [place] [phone] * (ABNORMAL) Protein electrophoresis, serum (07/08/2024 5:52 PM EST) Total Protein 6.4 6.0 - 8.0 g/dL LAB CHEMISTRY METHOD 07/14/2024 9:21 AM [facility] Albumin, Serum 2.2(L) 2.9 - 4.1 g/dL LAB CHEMISTRY METHOD 07/14/2024 9:21 AM [facility] Alpha 1 Globulin (g/dL) 0.6(H) 0.1 - 0.5 g/dL LAB CHEMISTRY METHOD 07/14/2024 9:21 AM [facility] Alpha 2 Globulin (g/dL) 1.2 0.7 - 1.5 g/dL LAB CHEMISTRY METHOD 07/14/2024 9:21 AM [facility] Beta (g/dL) 1.0 0.7 - 1.5 g/dL LAB CHEMISTRY METHOD 07/14/2024 9:21 AM [facility] Gamma Globulin (g/dL) 1.5 0.7 - 1.9 g/dL LAB CHEMISTRY METHOD 07/14/2024 9:21 AM [facility] SPEP Interpretation Hypoalbuminem ia, suggestive of malnutrition, decreased hepatic synthesis or renal/GI loss Elevated alpha-1 fraction, suggestive of acute or or chronic inflammation. LAB CHEMISTRY METHOD 07/14/2024 9:21 AM [facility] Blood Venous blood specimen / Unknown Venipuncture / Unknown 07/08/2024 5:52 PM EST 07/08/2024 6:00 PM EST us Aye [facility] BLOOD ORDERABLES Final Re sult [facility] [address], [place] [address], [place] [phone] * US Retroperitoneal Complete (07/08/2024 4:30 PM EST) Anatomical Region Laterality Modality Body Ultrasound 07/10/2024 2:07 PM EST Impressions 07/10/2024 2:08 PM EST Normal appearance of the kidneys. -------- FINAL REPORT -------- Dictated By: Primo Dee Dictated Date: 07/10/2024 14:07 ET Assigned Physician: Primo Dee Reviewed and Electronically Signed By: Primo Dee Signed Date: 07/10/2024 14:08 ET Workstation ID: [id number] Transcribed By: Self Edit Transcribed Date: 07/10/2024 [...] Signed Date: 07/10/2024 14:08 ET Workstation ID: [id number] Transcribed By: Self Edit Transcribed Date: 07/10/2024 14:07 ET us Aye HEDRICK Anibal US PROCEDURES Final Resul t * Respiratory virus panel molecular study (07/08/2024 2:59 PM EST) Adenovirus Detection by PCR Not Detected Not Detected LAB MICROBIOLOGY METHOD 07/08/2024 4:18 PM EST [facility] Influenza A PCR Not Detected Not Detected LAB MICROBIOLOGY METHOD 07/08/2024 4:18 PM EST [facility] Influenza B PCR Not Detected Not Detected LAB MICROBIOLOGY METHOD 07/08/2024 4:18 PM EST [facility] Coronavirus 229E Not Detected Not Detected LAB MICROBIOLOGY METHOD 07/08/2024 4:18 PM EST [facility] Coronavirus HKU1 Not Detected Not Detected LAB MICROBIOLOGY METHOD 07/08/2024 4:18 PM EST [facility] Coronavirus OC43 Not Detected Not Detected LAB MICROBIOLOGY METHOD 07/08/2024 4:18 PM [facility] Coronavirus NL63 Not Detected Not Detected LAB MICROBIOLOGY METHOD 07/08/2024 4:18 PM [facility] Parainfluenza Virus 1 Not Detected Not Detected LAB MICROBIOLOGY METHOD 07/08/2024 4:18 PM EST [facility] Parainfluenza Virus 2 Not Detected Not Detected LAB MICROBIOLOGY METHOD 07/08/2024 4:18 PM [facility] Parainfluenza Virus 3 Not Detected Not Detected LAB MICROBIOLOGY METHOD 07/08/2024 4:18 PM [facility] Parainfluenza Virus 4 Not Detected Not Detected LAB MICROBIOLOGY METHOD 07/08/2024 4:18 PM EST [facility] RSV PCR Not Detected Not Detected LAB MICROBIOLOGY METHOD 07/08/2024 4:18 PM [facility] Human Metapneumovirus A and B Not Detected Not Detected LAB MICROBIOLOGY METHOD 07/08/2024 4:18 PM EST [facility] Rhinovirus/Entero virus Not Detected Not Detected LAB MICROBIOLOGY METHOD 07/08/2024 4:18 PM EST [facility] Bordetella pertussis Not Detected Not Detected LAB MICROBIOLOGY METHOD 07/08/2024 4:18 PM EST [facility] Bordetella parapertussis Not Detected Not Detected LAB MICROBIOLOGY METHOD 07/08/2024 4:18 PM EST [facility] Mycoplasma pneumo by PCR Not Detected Not Detected LAB MICROBIOLOGY METHOD 07/08/2024 4:18 PM EST [facility] Chlamydia pneumoniae Not Detected Not Detected LAB MICROBIOLOGY METHOD 07/08/2024 4:18 PM EST [facility] SARS COV-2 Not Detected Not Detected LAB MICROBIOLOGY METHOD 07/08/2024 4:18 PM EST [facility] Swab Both anterior nares / Unknown Non-blood Collection / Unknown 07/08/2024 2:59 PM EST 07/08/2024 3:15 PM EST [facility] - 07/08/2024 4:18 PM EST Testing was performed using the [employer] Respiratory Pathogen PCR Assay. All results [...] Final Result [facility] [address] [place] [address], * XR Chest 2 Views (07/08/2024 2:01 PM EST) Anatomical Region Laterality Modality Body Radiographic Jennifer ging 07/08/2024 2:06 PM EST Impressions 07/08/2024 2:07 PM EST No acute findings. -------- FINAL REPORT -------- Dictated By: Henrique Bray Dictated Date: 07/08/2024 14:06 ET Assigned Physician: Henrique Bray Reviewed and Electronically Signed By: Henrique Bray Signed Date: 07/08/2024 14:07 ET Workstation ID: [id number] Transcribed By: Self Edit Transcribed Date: 07/08/2024 [...] Signed Date: 07/08/2024 14:07 ET Workstation ID: [id number] Transcribed By: Self Edit Transcribed Date: 07/08/2024 14:06 ET us Jj Wolfe MD IMG XR PROCEDURES Final R esult * Type and screen (07/08/2024 1:18 PM EST) ABO Group O 07/08/2024 2:42 PM EST [facility] Rh Type Positive 07/08/2024 2:42 PM EST [facility] Antibody Screen Negative 07/08/2024 2:42 PM EST [facility] Blood Venous blood specimen / Unknown Venipuncture / Unknown 07/08/2024 1:18 PM EST 07/08/2024 1:34 PM EST Raya HEDRICK LAB BLOOD BANK TEST OR DERABLES Final Result Performing Organization Address [facility] Co de Phone Number [facility] [address] [place] [address], * (ABNORMAL) Troponin I high sensitivity (07/08/2024 1:18 PM EST) [facility] High Sensitivity Troponin I 81(H) <=54 ng/L [...] taking more than 20 mg/day of biotin. jJ Wolfe MD LAB BLOOD ORDERABLES America l Result Performing Organization Address [facility] Co de Phone Number [facility] [address] [place] [address], [place] [phone] * Prepare RBC: 1 Units (07/08/2024 1:17 PM EST) [facility] Product Code [id number] 07/08/2024 4:13 PM EST [facility] Unit Number [id number] 07/08/19 25 4:13 PM EST [facility] Crossmatch Compatible 07/08/2024 2:53 PM EST [facility] Dispense Status Transfused 07/08/2024 4:13 PM [facility] Unit ABO Rh OPOS 07/08/2024 4:13 PM [facility] Unit Expiration Date Time [id number] 07/08/2024 4:13 PM [facility] Unit Blood Type 5100 07/08/2024 4:13 PM [facility] Blood Venous blood specimen / Unknown 07/08/2024 1:17 PM EST 06/17/2024 10:17 AM EST us Raya HEDRICK BLOOD BANK PRODUCT ORD ERABLES Final Result Performing Organization Address [facility]/ZIP Co de Phone Number [facility] [address] [place] [address], [place] [phone] * Culture urine (07/08/2024 12:59 PM EST) Culture, Urine No growth 07/09/2024 10:44 AM EST [facility] Urine Urine specimen obtained by clean catch procedure / Unknown Non-blood Collection / Unknown 07/08/2024 12:59 PM EST 07/08/2024 1:21 PM EST us Jj Wolfe MD LAB MICROBIOLOGY - GENERA L ORDERABLES Final Result [facility] [address] [place] [address], [place] [phone] * Robertson urine culture tube (07/08/2024 12:59 PM EST) Extra Tube Hold for add-ons. 07/08/2024 3:02 PM EST [facility] Comment:Auto resulted. Urine Urine specimen obtained by clean catch procedure / Unknown Non-blood Collection / Unknown 07/08/2024 12:59 PM EST 07/08/2024 1:11 PM EST us Jj Wolfe MD LAB URINE ORDERABLES America angelica Result [facility] [address] [place] [address], [place] [phone] * (ABNORMAL) Urinalysis with reflex microscopic and culture (07/08/2024 12:59 PM EST) Pathologist [facility] Specific [place] Urine 1.020 1.003 - 1.030 LAB URINALYSIS - AUTOMATED METHOD 07/08/2024 1:21 PM [facility] pH, Urine 5.5 5.0 - 8.0 pH LAB URINALYSIS - AUTOMATED METHOD 07/08/2024 1:21 PM [facility] Leukocytes, Urine Negative Negative LAB URINALYSIS - AUTOMATED METHOD 07/08/2024 1:21 PM [facility] Nitrite, Urine Negative Negative LAB URINALYSIS - AUTOMATED METHOD 07/08/2024 1:21 PM [facility] Protein, Urine 100(A) <=Trace mg/dL LAB URINALYSIS - AUTOMATED METHOD 07/08/2024 1:21 PM [facility] Glucose, Urine 500(A) Negative mg/dL LAB URINALYSIS - AUTOMATED METHOD 07/08/2024 1:21 PM [facility] Ketones, Urine Negative Negative mg/dL LAB URINALYSIS - AUTOMATED METHOD 07/08/2024 1:21 PM [facility] Urobilinogen, Urine 0.2 0.2 - 1.0 mg/dL LAB URINALYSIS - AUTOMATED METHOD 07/08/2024 1:21 PM [facility] Bilirubin, Urine Negative Negative LAB URINALYSIS - AUTOMATED METHOD 07/08/2024 1:21 PM [facility] Blood, Urine Large(A) Negative LAB URINALYSIS - AUTOMATED METHOD 07/08/2024 1:21 PM [facility] RBC, Urine 21.6(H) 0 - 4 /HPF LAB URINALYSIS - AUTOMATED METHOD 07/08/2024 1:21 PM [facility] WBC, Urine 7.3(H) 0 - 4 /HPF LAB URINALYSIS - AUTOMATED METHOD 07/08/2024 1:21 PM [facility] Squamous Epithelial, Urine 30 0 - 60 /LPF LAB URINALYSIS - AUTOMATED METHOD 07/08/2024 1:21 PM [facility] Bacteria, Urine Negative Negative /HPF LAB URINALYSIS - AUTOMATED METHOD 07/08/2024 1:21 PM [facility] Hyaline Casts, Urine 1.7 0 - 3 /LPF LAB URINALYSIS - AUTOMATED METHOD 07/08/2024 1:21 PM [facility] Urine Urine specimen obtained by clean catch procedure / Unknown Non-blood Collection / Unknown 07/08/2024 12:59 PM EST 07/08/2024 1:11 PM EST Jj Wolfe MD LAB URINE ORDERABLES America dominguez Result [facility] [address] [place] [address], * CT Head wo Contrast (07/08/2024 12:11 [...] Signed Date: 07/08/2024 12:23 ET Workstation ID: [id number] Transcribed By: Self Edit Transcribed Date: 07/08/2024 [...] Signed Date: 07/08/2024 12:23 ET Workstation ID: [id number] Transcribed By: Self Edit Transcribed Date: 07/08/2024 [...] Signed Date: 07/08/2024 12:27 ET Workstation ID: [id number] Transcribed By: Self Edit Transcribed Date: 07/08/2024 [...] Signed Date: 07/08/2024 12:27 ET Workstation ID: [id number] Transcribed By: Self Edit Transcribed Date: 07/08/2024 [...] Re sult [facility] [address] [place] [address], * (ABNORMAL) Iron and TIBC (07/08/2024 11:10 [...] ORDERABLES Final Re sult Performing Organization Address City/[facility]/ZIP Co de Phone Number [facility] [address] [place] [address], [place] [phone] * (ABNORMAL) Ferritin (07/08/2024 11:10 AM EST) [facility] Ferritin 708(H) 8 - 252 ng/mL LAB CHEMISTRY METHOD 07/08/2024 3:51 PM EST [facility] Blood Venous blood specimen / Unknown Venipuncture / Unknown 07/08/2024 11:10 AM EST 07/08/2024 11:42 AM EST us Wayne Donahue MD LAB BLOOD ORDERABLES Final Re sult Performing Organization Address City/[facility]/ZIP Co de Phone Number [facility] [address] [place] [address], [place] [phone] * (ABNORMAL) Reticulocyte count (07/08/2024 11:10 AM EST) Retic Ct Abs 0.050 0.030 - 0.090 M/mcL LAB HEMETOLOGY METHOD 07/08/2024 2:52 PM EST [facility] Retic Ct Pct 1.4 0.7 - 1.7 % LAB HEMETOLOGY METHOD 07/08/2024 2:52 PM [facility] Immature Retic Fract 24.5(H) 2.3 - 15.9 % LAB HEMETOLOGY METHOD 07/08/2024 2:52 PM [facility] Reticulocyte Hemoglobin 22.5(L) >29.0 pcg LAB HEMETOLOGY METHOD 07/08/2024 2:52 PM EST [facility] Blood Venous blood specimen / Unknown Venipuncture / Unknown 07/08/2024 11:10 AM EST 07/08/2024 11:42 AM EST us Wayne Donahue MD LAB BLOOD ORDERABLES Final Re sult Performing Organization Address [facility]/ZIP Co de Phone Number [facility] [address] [place] [address], [place] [phone] * (ABNORMAL) Haptoglobin (07/08/2024 11:10 AM EST) Pathologist [facility] Haptoglobin 570(H) 16 - 200 mg/dL LAB CHEMISTRY METHOD 07/08/2024 3:44 PM EST [facility] Blood Venous blood specimen / Unknown Venipuncture / Unknown 07/08/2024 11:10 AM EST 07/08/2024 11:42 AM EST us Wayne Donahue MD LAB BLOOD ORDERABLES Final Re sult Performing Organization Address [facility]/ZIP Co de Phone Number [facility] [address] [place] [address], [place] [phone] * (ABNORMAL) Folate (07/08/2024 11:10 AM EST) Pathologist [facility] Folate >20.0(H) 2.8 - 17.0 ng/ml LAB CHEMISTRY METHOD 07/08/2024 3:51 PM EST [facility] Blood Venous blood specimen / Unknown Venipuncture / Unknown 07/08/2024 11:10 AM EST 07/08/2024 11:42 AM EST us Wayne Donahue MD LAB BLOOD ORDERABLES Final Re sult [facility] [address] [place] [address], [place] [phone] * Vitamin B12 (07/08/2024 11:10 AM EST) Vitamin B-12 384 250 - 900 pcg/mL LAB CHEMISTRY METHOD 07/08/2024 3:51 PM EST [facility] Blood Venous blood specimen / Unknown Venipuncture / Unknown 07/08/2024 11:10 AM EST 07/08/2024 11:42 AM EST Wayne Donahue MD LAB BLOOD ORDERABLES Final Re sult [facility] [address] [place] [address], * Cortisol (07/08/2024 11:10 AM EST) Pathologist [facility] Cortisol 58.1 mcg/dL LAB CHEMISTRY METHOD 07/08/2024 [...] Re sult [facility] [address] [place] [address], * (ABNORMAL) Thyroid stimulating hormone (07/08/2024 11:10 AM EST) TSH 4.50(H) 0.40 - 4.00 mcIU/mL LAB CHEMISTRY METHOD 07/08/2024 3:31 PM EST [facility] Blood Venous blood specimen / Unknown Venipuncture / Unknown 07/08/2024 11:10 AM EST 07/08/2024 11:42 AM EST us Wayne Donahue MD LAB BLOOD ORDERABLES Final Re sult Performing Organization Address City/[facility]/ZIP Co de Phone Number [facility] [address] [place] [address], [place] [phone] * Uric acid (07/08/2024 11:10 AM EST) Uric Acid 7.2 3.1 - 7.8 mg/dL LAB CHEMISTRY METHOD 07/08/2024 3:44 PM EST [facility] Blood Venous blood specimen / Unknown Venipuncture / Unknown 07/08/2024 11:10 AM EST 07/08/2024 11:42 AM EST us Wayne Donahue MD LAB BLOOD ORDERABLES Final Re sult Performing Organization Address [facility]/ZIP Co de Phone Number [facility] [address] [place] [address], [place] [phone] * (ABNORMAL) Osmolality (07/08/2024 11:10 AM EST) Pathologist [facility] Osmolality Iván 307(H) 280 - 300 mOsm/kg LAB CHEMISTRY METHOD 07/08/2024 6:51 PM EST [facility] Blood Venous blood specimen / Unknown Venipuncture / Unknown 07/08/2024 11:10 AM EST 07/08/2024 11:42 AM EST us Wayne Donahue MD LAB BLOOD ORDERABLES Final Re sult [facility] [address] [place] [address], [place] [phone] * (ABNORMAL) Parathyroid hormone intact (07/08/2024 11:10 AM EST) PTH 6.5(L) 18.5 - 88.0 pcg/mL LAB CHEMISTRY METHOD 07/08/2024 3:31 PM [facility] Blood Venous blood specimen / Unknown Venipuncture / Unknown 07/08/2024 11:10 AM EST 07/08/2024 11:42 AM EST Wayne Donahue MD LAB BLOOD ORDERABLES Final Re sult [facility] [address] [place] [address], * (ABNORMAL) CBC auto differential (07/08/2024 11:10 AM EST) WBC 18.9(H) 4.8 - 10.8 K/mcL LAB HEMETOLOGY METHOD 07/08/2024 11:51 AM [facility] RBC 3.30(L) 3.80 - 4.80 M/mcL LAB HEMETOLOGY METHOD 07/08/2024 11:51 AM [facility] Hemoglobin 7.3(L) 11.5 - 16.0 g/dL LAB HEMETOLOGY METHOD 07/08/2024 11:51 AM [facility] Hematocrit 23.7(L) 35.0 - 47.0 % LAB HEMETOLOGY METHOD 07/08/2024 11:51 AM [facility] MCV 72.3(L) 79.0 - 98.0 FL LAB HEMETOLOGY METHOD 07/08/2024 11:51 AM [facility] MCH 22.3(L) 27.0 - 32.0 pcg LAB HEMETOLOGY METHOD 07/08/2024 11:51 AM [facility] MCHC 30.8(L) 32.0 - 37.0 g/dL LAB HEMETOLOGY METHOD 07/08/2024 11:51 AM [facility] RDW 16.4(H) 11.0 - 15.0 % LAB HEMETOLOGY METHOD 07/08/2024 11:51 AM [facility] Platelets 408(H) 130 - 400 K/mcL LAB HEMETOLOGY METHOD 07/08/2024 11:51 AM [facility] MPV 8.9 7.0 - 11.0 FL LAB HEMETOLOGY METHOD 07/08/2024 11:51 AM [facility] NRBC 0.0 <1.0 % LAB HEMETOLOGY METHOD 07/08/2024 11:51 AM [facility] NRBC Absolute 0.00 <0.10 K/mcL LAB HEMETOLOGY METHOD 07/08/2024 11:51 AM [facility] Neutrophils Relative 89.5 % LAB HEMETOLOGY METHOD 07/08/2024 11:51 AM [facility] Lymphocytes Relative 2.4 % LAB HEMETOLOGY METHOD 07/08/2024 11:51 AM [facility] Monocytes Relative 7.0 % LAB HEMETOLOGY METHOD 07/08/2024 11:51 AM [facility] Eosinophils Relative 0.2 % LAB HEMETOLOGY METHOD 07/08/2024 11:51 AM [facility] Basophils Relative 0.2 % LAB HEMETOLOGY METHOD 07/08/2024 11:51 AM [facility] Immature Granulocytes Relative 0.7 % LAB HEMETOLOGY METHOD 07/08/2024 11:51 AM [facility] Neutrophils Absolute 16.86(H) 1.50 - 7.00 K/mcL LAB HEMETOLOGY METHOD 07/08/2024 11:51 AM [facility] Lymphocytes Absolute 0.46(L) 1.00 - 5.00 K/mcL LAB HEMETOLOGY METHOD 07/08/2024 11:51 AM EST [facility] Monocytes Absolute 1.32(H) 0.20 - 1.00 K/[facility] LAB HEMETOLOGY METHOD 07/08/2024 11:51 AM [facility] Eosinophils Absolute 0.04 0.00 - 0.50 K/[facility] LAB HEMETOLOGY METHOD 07/08/2024 11:51 AM EST [facility] Basophils Absolute 0.04 0.00 - 0.20 K/[facility] LAB HEMETOLOGY METHOD 07/08/2024 11:51 AM [facility] Immature Granulocytes Absolute 0.13(H) 0.00 - 0.03 K/[facility] LAB HEMETOLOGY METHOD 07/08/2024 11:51 AM [facility] Blood Venous blood specimen / Unknown Venipuncture / Unknown 07/08/2024 11:10 AM EST 07/08/2024 11:42 AM EST Jj Wolfe MD LAB BLOOD ORDERABLES America l Result [facility] [address] [place] [address], [place] [phone] * B-type natriuretic peptide (07/08/2024 11:10 AM EST) BNP 86 <=100 pcg/mL LAB CHEMISTRY METHOD 07/08/2024 12:26 PM EST [facility] Blood Venous blood specimen / Unknown Venipuncture / Unknown 07/08/2024 11:10 AM EST 07/08/2024 11:42 AM EST Jj Wolfe MD LAB BLOOD ORDERABLES America l Result [facility] [address] [place] [address], [place] [phone] * Magnesium (07/08/2024 11:10 AM EST) Magnesium 2.1 1.9 - 2.6 mg/dL LAB CHEMISTRY METHOD 07/08/2024 12:54 PM EST [facility] Comment:Hemolysis present Blood Venous blood specimen / Unknown Venipuncture / Unknown 07/08/2024 11:10 AM EST 07/08/2024 11:42 AM EST Jj Wolfe MD LAB BLOOD ORDERABLES America l Result [facility] [address] [place] [address], [place] [phone] * (ABNORMAL) Lipase (07/08/2024 11:10 AM EST) Pathologist [facility] Lipase <10(L) 13 - 75 unit/L LAB CHEMISTRY METHOD 07/08/2024 12:54 PM EST [facility] Blood Venous blood specimen / Unknown Venipuncture / Unknown 07/08/2024 11:10 AM EST 07/08/2024 11:42 AM EST Jj Wolfe MD LAB BLOOD ORDERABLES America l Result [facility] [address] [place] [address], [place] [phone] * (ABNORMAL) Comprehensive metabolic panel (07/08/2024 11:10 AM EST) Sodium 126(L) 133 - 145 mmol/L LAB CHEMISTRY METHOD 07/08/2024 12:54 PM EST [facility] Potassium 4.2 3.5 - 5.5 mmol/L LAB CHEMISTRY METHOD 07/08/2024 12:54 PM EST [facility] Comment:Hemolysis present Chloride 93(L) 96 - 110 mmol/L LAB CHEMISTRY METHOD 07/08/2024 12:54 PM [facility] CO2 21 21 - 32 mmol/L LAB CHEMISTRY METHOD 07/08/2024 12:54 PM [facility] Anion Gap 12(H) 3 - 11 LAB CHEMISTRY METHOD 07/08/2024 12:54 PM [facility] Glucose 265(H) 70 - 100 mg/dL LAB CHEMISTRY METHOD 07/08/2024 12:54 PM [facility] BUN 59(H) 5 - 25 mg/dL LAB CHEMISTRY METHOD 07/08/2024 12:54 PM [facility] Comment:Results verified by repeat testing Creatinine 4.10(H) 0.50 - 1.10 mg/dL LAB CHEMISTRY METHOD 07/08/2024 12:54 PM [facility] Comment:Results verified by repeat testing eGFR 10(L) >=60 mL/min/1. 73m2 LAB CHEMISTRY METHOD 07/08/2024 12:54 PM [facility] Comment:Calculation based on the??Chronic Kidney Disease Epidemiology Collaboration (CKD-EPI) equation refit??without adjustment for race. BUN/Creatinine Ratio 14.4 LAB CHEMISTRY METHOD 07/08/2024 12:54 PM [facility] Calcium 10.6(H) 8.5 - 10.5 mg/dL LAB CHEMISTRY METHOD 07/08/2024 12:54 PM [facility] AST (SGOT) 57(H) 10 - 42 unit/L LAB CHEMISTRY METHOD 07/08/2024 12:54 PM [facility] Comment:Hemolysis present ALT (SGPT) 39 10 - 60 unit/L LAB CHEMISTRY METHOD 07/08/2024 12:54 PM [facility] Alkaline Phosphatase 149(H) 42 - 121 unit/L LAB CHEMISTRY METHOD 07/08/2024 12:54 PM [facility] Total Protein 6.3 6.0 - 8.0 g/dL LAB CHEMISTRY METHOD 07/08/2024 12:54 PM EST [facility] Albumin 2.1(L) 3.2 - 5.0 g/dL LAB CHEMISTRY METHOD 07/08/2024 12:54 PM EST [facility] Total Bilirubin 0.4 0.0 - 1.4 mg/dL LAB CHEMISTRY METHOD 07/08/2024 12:54 PM EST [facility] Blood Venous blood specimen / Unknown Venipuncture / Unknown 07/08/2024 11:10 AM EST 07/08/2024 11:42 AM EST Jj Wolfe MD LAB BLOOD ORDERABLES America l Result Performing Organization Address [facility]/ZIP Co de Phone Number [facility] [address] [place] [address], [place] [phone] * (ABNORMAL) Troponin I high sensitivity (07/08/2024 11:10 AM EST) [facility] High Sensitivity Troponin I 80(H) <=54 ng/L LAB CHEMISTRY METHOD 07/08/2024 12:20 PM EST [facility] Blood Venous blood specimen / Unknown Venipuncture / Unknown 07/08/2024 11:10 AM EST 07/08/2024 11:42 AM EST Narrative [facility] - 07/08/2024 12:20 PM EST High levels of biotin in samples may falsely decrease hsTroponin values. ??Use caution when interpreting hsTroponin results in patients taking biotin who exhibit renal impairment (eGFR <60) or in patients taking more than 20 mg/day of biotin. us Jj Wolfe MD LAB BLOOD ORDERABLES America l Result Performing Organization Address City/[facility]/ZIP Co de Phone Number [facility] [address] [place] [address], [place] [phone] * ECG 12 lead (07/08/2024 10:46 AM EST) Ventricular Rate ECG 94 BPM GEMUSE Atrial Rate 94 BPM GEMUSE P-R Interval 196 ms GEMUSE QRS Duration 118 ms GEMUSE Q-T Interval 354 ms GEMUSE QTc 442 ms GEMUSE P Wave [place] 79 degrees GEMUSE R [place] 15 degrees GEMUSE T [place] 4 degrees GEMUSE ECG Interpretation Sinus rhythm [...] ORDERABLES Final Result GEMUSE * ECG-Outside (07/08/2024) us Provider Onbase MD [...] Other diseases of lung, not elsewhere 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, not specified as acute or chronic, 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 Admitting Diagnoses Diagnosis [...] [phone] (Given - Provider: Jolene Cardona RN)2101 (Given - Provider: María Hawk RN) 0828 (Not Given - Provider: Jacquelin Davidson RN - Reason: Patient not available)1145 ([facility] Hold - Provider: Automatic Transfer Provider - Reason: Patient not available)1424 ([facility] Unhold - Provider: Automatic Transfer Provider)2125 (Not Given - Provider: Katina Machuca RN [...] (Given - Provider: María Hawk RN) 1145 ([facility] Hold - Provider: Automatic Transfer Provider - Reason: Patient not available)142 ([facility] Unhold - Provider: Automatic Transfer Provider)2124 (Given - Provider: Katina Machuca RN) insulin [...] available)1424 ([facility] Unhold - Provider: Automatic Transfer Provider)1646 (Given [...] ([facility] Unhold - Provider: Automatic Transfer Provider) 0929 [...] available)1424 ([facility] Unhold - Provider: Automatic Transfer Provider)2206 (Not Given - Provider: Katina Machuca RN - Reason: Other - Comment: already documented) 0930 (Not Given - Provider: Jacquelin Davidson RN - Reason: Other) sodium chloride 0.9 % flush 10 mL(Linked Group 2) 10 mL, intravenous, 2 times daily, First dose on 07/23/24 at 2100 0857 (Given - Provider: Jolene Cardona RN)2109 (Given - Provider: María Hawk RN) 0829 (Not Given - Provider: Jacquelin Davidson RN - Reason: Patient not available)1145 (AUG Hold - Provider: Automatic Transfer Provider - Reason: Patient not available)1424 ([facility] Unhold - Provider: Automatic Transfer Provider)2126 (Given - Provider: Katina Machuca, RN) 0930 (Given - Provider: Jacquelin Davidson [...] 0853 (Given - Provider: Jolene Cardona RN) 0829 (Not Given - Provider: Jacquelin Davidson RN - Reason: Patient not available)1145 ([facility] Hold - Provider: Automatic Transfer Provider - Reason: Patient not available)1424 ([facility] Unhold - Provider: Automatic Transfer Provider) [...] Provider)212 (Given - Provider: Katina Machuca, RN) acetaminophen (TYLENOL) tablet 650 mg 650 mg, oral, Once as needed, mild pain, headaches, fever - temperature GREATER than 38 C (100.4 F), Starting on [place] 07/28/24 at 1140, For 1 dose 1145 ([facility] Hold - Provider: Automatic Transfer Provider - Reason: Patient not available)1424 ([facility] Unhold - Provider: Automatic Transfer Provider)2140 (Not Given - Provider: Katina Machuca RN - Reason: Other - Comment: charted on q6 prn) albuterol 2.5 mg /3 mL (0.083 %) nebulizer solution 2.5 mg 2.5 mg, nebulization, Every 10 min PRN, shortness of breath, Starting on Thu07/28/24 at 1140, For 2 doses, -May repeat once if symptoms unresolved -Administer with 8L of oxygen 1145 ([facility] Hold - Provider: Automatic Transfer Provider - Reason: Patient not available)142 ([facility] Unhold - Provider: Automatic Transfer Provider) benzonatate (TESSALON) capsule 100 mg 100 mg, oral, 3 times daily PRN, cough, Starting on Thu07/15/24 at 0957, Cough Do not crush or chew., Indications: cough 1145 ([facility] Hold - Provider: Automatic Transfer Provider - Reason: Patient not available)142 ([facility] Unhold - Provider: Automatic Transfer Provider) dextrose (D50W) 50% injection 12.5 g 12.5 g, intravenous, Every 15 min PRN, low blood sugar, moderate hypoglycemia *Patient is Unconscious, NPO, unable to swallow: BG 54 - 69 mg/dl*, Starting on Thu07/08/24 at 1649 1145 ([facility] Hold - Provider: Automatic Transfer Provider - Reason: Patient not available)142 ([facility] Unhold - Provider: Automatic Transfer Provider) dextrose (D50W) 50% injection 25 g 25 g, intravenous, Every 15 min PRN, low blood sugar, severe hypoglycemia *Patient is Unconscious, NPO, unable to swallow: BG LESS than 54 mg/dL*, Starting on Thu07/08/24 at 1649 1145 ([facility] Hold - Provider: Automatic Transfer Provider - Reason: Patient not available)1424 ([facility] Unhold - Provider: Automatic Transfer Provider) dextrose 15 gram/60 mL oral solution 15 g 15 g, oral, Every 15 min PRN, low blood sugar, hypoglycemia *Patient conscious AND able to drink and swallow safely*, Starting on Thu07/08/24 at 1649 1145 ([facility] Hold - Provider: Automatic Transfer Provider - Reason: Patient not available)1424 ([facility] Unhold - Provider: Automatic Transfer Provider) dextrose 15 gram/60 mL oral solution 30 g 30 g, oral, Every 15 min PRN, low blood sugar, hypoglycemia *Patient conscious AND able to drink and swallow safely*, Starting on Thu07/08/24 at 1649 1145 ([facility] Hold - Provider: Automatic Transfer Provider - Reason: Patient not available)1424 ([facility] Unhold - Provider: Automatic Transfer Provider) [...] years of age, or with asthma 1145 ([facility] Hold - Provider: Automatic Transfer Provider - Reason: Patient not available)1424 ([facility] Unhold - Provider: Automatic Transfer Provider) [...] years of age, or with asthma 1145 ([facility] Hold - Provider: Automatic Transfer Provider - Reason: Patient not available)1424 ([facility] Unhold - Provider: Automatic Transfer Provider) EPINEPHrine (ADRENALIN) IM Kit - adult 0.3 mg 0.3 mg, intramuscular, Every 15 min PRN, anaphylaxis, For systolic BP LESS than 90 mmHg, Starting on Thu07/28/24 at 1140, For 3 doses, May repeat every 15 minutes as needed for a maximum of 3 doses 1145 ([facility] Hold - Provider: Automatic Transfer Provider - Reason: Patient not available)1424 ([facility] Unhold - Provider: Automatic Transfer Provider) [...] push over at least 2 minutes 1145 ([facility] Hold - Provider: Automatic Transfer Provider - Reason: Patient not available)1424 ([facility] Unhold - Provider: Automatic Transfer Provider) Glucagon HCl (rDNA) injection 1 mg 1 mg, intramuscular, Once as needed, low blood sugar, severe hypoglycemia, Starting on Thu07/08/24 at 1649, For 1 dose 1145 ([facility] Hold - Provider: Automatic Transfer Provider - Reason: Patient not available)1424 ([facility] Unhold - Provider: Automatic Transfer Provider) hydrALAZINE (APRESOLINE) injection 10 mg 10 mg, intravenous, Every 6 hours PRN, systolic BP greater than:, SBP>160, Starting on 07/09/24 at 1504 1145 ([facility] Hold - Provider: Automatic Transfer Provider - Reason: Patient not available)1424 ([facility] Unhold - Provider: Automatic Transfer Provider) [...] -Generalized rash Administer over 2 minutes 1145 ([facility] Hold - Provider: Automatic Transfer Provider - Reason: Patient not available)1424 ([facility] Unhold - Provider: Automatic Transfer Provider) HYDROmorphone (PF) injection 0.5 mg 0.5 mg, intravenous, Every 3 hours PRN, severe pain or when therapies for moderate pain were not effective, Starting on Thu07/08/24 at 1437 1145 ([facility] Hold - Provider: Automatic Transfer Provider - Reason: Patient not available)1424 ([facility] Unhold - Provider: Automatic Transfer Provider) [...] up to 10 doses (0.4 mg) 1145 ([facility] Hold - Provider: Automatic Transfer Provider - Reason: Patient not available)1424 ([facility] Unhold - Provider: Automatic Transfer Provider) ondansetron (PF) (ZOFRAN) injection 4 mg 4 mg, intravenous, Every 6 hours PRN, vomiting, nausea, Starting on Thu07/08/24 at 1437, -ONLY give IV if patient is unable to take orally. -If inadequate response within 30 minutes, proceed to next-line agent or contact provider if no further options ordered. 0446 (Given - Provider: María Hawk RN) 1145 ([facility] Hold - Provider: Automatic Transfer Provider - Reason: Patient not available)1424 ([facility] Unhold - Provider: Automatic Transfer Provider) oxyCODONE (ROXICODONE) immediate release tablet 5 mg 5 mg, oral, Every 4 hours PRN, moderate pain or when therapies for mild pain were not effective, Starting on Thu07/08/24 at 1437 1145 ([facility] Hold - Provider: Automatic Transfer Provider - Reason: Patient not available)1424 ([facility] Unhold - Provider: Automatic Transfer Provider) polyvinyl alcohol-povidone (PF) (ARTIFICIAL TEARS) 1.4-0.6 % ophthalmic solution 2 drop 2 drop, Both Eyes, Every 2 hours PRN, dry eyes, Starting on Thu07/08/24 at 1746 1122 (Given - Provider: Jolene Cardona RN)2101 (Given - Provider: María Hawk RN) 1145 ([facility] Hold - Provider: Automatic Transfer Provider - Reason: Patient not available)1424 ([facility] Unhold - Provider: Automatic Transfer Provider)2124 (Given - Provider: Katina Machuca RN) sodium chloride 0.9 % bolus 500 mL 500 mL, intravenous, at 2,000 mL/hr, Administer over 15 Minutes, Once as needed, for hypotensive management (systolic BP below 90 mmHg), Starting on Soc[place] 07/28/24 at 1140, For 1 dose, Run wide open and await physician orders 1145 ([facility] Hold - Provider: Automatic Transfer Provider - Reason: Patient not available)1424 ([facility] Unhold - Provider: Automatic Transfer Provider) sodium chloride 0.9 % flush 10 mL(Linked Group 1) 10 mL, intravenous, As needed, line care, Starting on Thu07/08/24 at 1437 1145 ([facility] Hold - Provider: Automatic Transfer Provider - Reason: Patient not available)142 ([facility] Unhold - Provider: Automatic Transfer Provider) sodium chloride 0.9 % flush 10 mL(Linked Group 2) 10 mL, intravenous, As needed, line care, Starting on 07/23/24 at 1617 1145 ([facility] Hold - Provider: Automatic Transfer Provider - Reason: Patient not available)1424 ([facility] Unhold - Provider: Automatic Transfer Provider) [...] each new unit of blood administered 1145 ([facility] Hold - Provider: Automatic Transfer Provider - Reason: Patient not available)1424 ([facility] Unhold - Provider: Automatic Transfer Provider) [...] each new unit of blood administered 1145 ([facility] Hold - Provider: Automatic Transfer Provider - Reason: Patient not available)1424 ([facility] Unhold - Provider: Automatic Transfer Provider) [...] each new unit of blood administered 1145 ([facility] Hold - Provider: Automatic Transfer Provider - Reason: Patient not available)1424 ([facility] Unhold - Provider: Automatic Transfer Provider) [...] each new unit of blood administered 1145 ([facility] Hold - Provider: Automatic Transfer Provider - Reason: Patient not available)1424 ([facility] Unhold - Provider: Automatic Transfer Provider) Linked [...] chloride 0.9 % flush 10 mL 4 07/23/ 025 07/08/2024 fentaNYL (PF) (SUBLIMAZE) injection 2 [...] documented as of this encounter Care Teams Office Machine Repair Shop Supervisor Relationship Specialty Start Date End Date Eloisa Vázquez DO [address] [place] [address] PCP - General 04/12/24 documented as of this encounter
--- OUTSIDE RECORDS SUMMARY | 2024-08-22 07:53 | XMS_ITS | Encounter Summary ---
Author Organization [facility] Address [address] [facility] [address] [place] [address] Phone Care Team Providers Care Atomizer Assembler Name Role Phone Eloisa Vázquez Primary Care Provider [phone] Encounter Details Date Type Department Care Team (Late st Contact Info) Description 07/28/2024 Telephone [facility] P. [address] [facility] [address] [place] [phone] Maggy Mcgarry [address] [facility] [address] [place] [phone] Social History Tobacco Use Types Packs/Day Years [...] you regarding the biopsy results Dr. Santoyo [phone] Messaged has been sent on [employer] documented in this encounter Plan of Treatment Not on file documented as of this encounter Visit Diagnoses Not on filedocumented in this encounter Care Teams Atomizer Assembler Relationship Specialty Start Date End Date Eloisa Vázquez [address] [place] [phone] PCP - General Internal Medicine 07/11/24 documented as of this encounter
--- OUTSIDE RECORDS SUMMARY | 2024-08-22 07:53 | XMS_ITS | Encounter Summary ---
Author Organization [facility] Address [address] [place] [address] Care Team Providers Care Detective Name Role Phone Marie Vázquezmankamryn CHERY Primary Care Provider [phone] Reason for Visit * Reason Onset Date Comments Procedure 06/14/2024 [facility] , ct scan Encounter Details Date Type Department Care Team ([facility] Contact Info) Description 06/14/2024 Telephone Thoracic Surgery - [place] [address] [facility] [address] [place] [address] Cecily Montez MD 299 [facility] [address] [place], [place] [phone] Procedure ([facility]vca , ct scan) Social History [...] as inpatient ED Dennise can be reached [phone] Please advice * Cheyenne Evangelista - 07/13/2024 [...] Info) Description 08/22/2024 8:30 AM EST Appointment [facility] [address]nd [place] [address] 08/23/2024 3:00 PM EST Office Visit Gastroenterology - [address] [place] [address] [facility] [address] [place] [phone] Josiane Smith, JUNITO [address] [facility] Matthew [address] [place] [address] 09/05/2024 10:00 AM EDT Office Visit Endocrinology - [place] [address] [place] [address] Kathy Michelle PA [address] [place] [address] 09/06/2024 11:00 AM EDT Ancillary Procedure [facility] - [address] [place] [address] [place] [address] 10/06/2024 1:15 PM EDT Office Visit Internal Medicine - [facility] [address] [place] [address] Eloisa Vázquez DO 305 [place] [address] 11/14/2024 11:30 AM EDT Appointment [facility] CT Scan [address] [place] [phone] 12/01/2024 10:00 AM EDT Office Visit Thoracic Surgery - [place] 299 [facility] [address] [place] [address] Cecily Montez MD 299 [facility] [address] [place] [address] documented as of this encounter Visit Diagnoses Not on filedocumented in this encounter Additional Health Concerns Infection Onset Date Last Indicated Resolved Time Respiratory Rule-Out 07/08/2024 07/08/2024 025 4:18 PM EST COVID-19 Rule-Out 07/08/2024 07/08/2024 07/08/2024 4:18 PM EST documented as of this encounter Care Teams Detective Relationship Specialty Start Date End Date Eloisa Vázquez DO [address] [place] [address] PCP - General 04/12/24 documented as of this encounter
--- OUTSIDE RECORDS SUMMARY | 2024-08-22 07:53 | XMS_ITS | Encounter Summary ---
Author Organization [facility] Address [address] [place] [address] Care Team Providers Care All Round Butcher Name Role Phone Eloisa Vázquez DO Primary Care Provider [phone] Reason for Visit * Auth/Cert Specialty Diagnoses / Procedures Referred By Conthector t Referred To Contact Diagnoses Acute encephalopathy Procedures . Wayne Donahue MD [address] [place] [phone] Phone: tel: fax: [facility] [address] [place] [address] Phone: tel: Referral ID Status Reason Start Date Expiration Date Visits Re quested Visits Authorized [id number] 1 1 Encounter Details Date Type Department Care Team (Late st Contact Info) Description 08/05/2024 11:46 AM EST Anesthesia Event [facility] Main OR [address] [place] [address] Monroe Kim MD [address] [place] [address] Anesthesia Record Procedure Summary Procedure Name Responsible [...] transport to designated recovery area. {Transport to PACU/ICU:[id number]} 1309 Handoff to RN I completed my [...] Yes; Single Lumen; 18 G; Powerglide Lot: [id number]; 10 cm; Right; Basilic; Chlorhexidine; Yes; (mask,gloves,drape); [...] Procedure Summary Date: 08/05/24 Room / Location: [facility] OR [address] [place] [address] OR Anesthesia Start: 1146 Anesthesia Stop: 1310 [...] during procedure: OR Anesthesiologist: Monroe Kim MD Resident/FIRESTOP/CONTAINMENT WORKER: Candelaria Tatum CRNA Performed: resident/FIRESTOP/CONTAINMENT WORKER/CAA Performed by: Candelaria Tatum CRNA Authorized by: [...] complication, without long-term current use of insulin ([facility]) Other (+) Iron deficiency anemia [...] Info) Description 08/22/2024 8:30 AM EST Appointment [facility] [address] [place] [address] 08/23/2024 3:00 PM EST Office Visit Gastroenterology - [address] [place] [address] [facility] [address] [place] [phone] Josiane Smith, PIPE [address] STRE[address] SERVICE [address] [facility] [address] Matthew [address] [place] [address] 09/05/2024 10:00 AM EDT Office Visit Endocrinology - [place] 444 [place] [address] Kathy Michelle PA [address] [place] [address] 09/06/2024 11:00 AM EDT Ancillary Procedure [facility] - [address] [place] [phone] 10/06/2024 1:15 PM EDT Office Visit Internal Medicine - [place] [address] [place] [address] Eloisa Vázquez, [address] [place] [address] 11/14/2024 11:30 AM EDT Appointment [facility] CT Scan [address] [place] [phone] 12/01/2024 10:00 AM EDT Office Visit Thoracic Surgery - [place] 299 [facility] 410 [place] [address] Cecily Montez MD 299 [facility] [address] [place] [address] documented as of this encounter Procedures Procedure [...] during procedure: OR Anesthesiologist: Monroe Kim MD Resident/FIRESTOP/CONTAINMENT WORKER: Candelaria Tatum CRNA Performed: resident/LEANN/CAA Performed by: Candelaria Tatum CRNA Authorized by: [...] documented as of this encounter Care Teams All Round Butcher Relationship Specialty Start Date End Date Eloisa Vázquez DO [address] [place] [address] PCP - General 04/12/24 documented as of this encounter
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
--- OUTSIDE RECORDS SUMMARY | 2024-08-22 07:55 | XMS_ITS | Encounter Summary ---
Author Organization [facility] Address [address] [place] [address] Care Team Providers Care Garment Inspector Name Role Phone Eloisa Vázquez DO Primary Care Provider [phone] Reason for Visit * Reason Comments Fall * Auth/Cert Specialty Diagnoses / Procedures Referred By Contac t Referred To Contact Diagnoses Acute encephalopathy Procedures . Wayne Donahue MD [address] [place] [phone] Phone: tel: fax: [facility] Emergency [address] [place] [address] Phone: tel: Referral ID Status Reason Start Date Expiration Date Visits Re quested Visits Authorized [id number] 1 1 Encounter Details Date Type Department Care Team (Late st Contact Info) Description 07/08/2024 10:31 AM EST - 08/06/2024 1:09 PM EST Hospital Encounter [facility] Urology Unit [address] [place] [address] Jj Wolfe MD [address] [place] [address] Wayne Donahue MD [address] [place] [address] Maria Alejandra Melendez MD [address] [place] [address] Kwesi Guido MD [address] [place] [phone] Lenhco Stuart MD [address] [place] [address] Jonny Mathur MD [address] [place] [phone] Steve Cruz MD [address] [place] [address] Anemia, unspecified type (Primary Dx); Hyponatremia; Acute [...] from the original note were not included. LEETONIA DISCHARGE SUMMARY Patient Information Ana Krysta Ben [...] found down on the ground by [facility]. She was unsure the detailsof how [...] will be transferred to the care of [facility] staff for further management of their acute encephalopathy, fall. Hospital course Patient is 79 years old female with past medical history significant for type 2 diabetes, hypertension, chronic kidney disease stage IV, iron deficiency anemia, dyslipidemia, lung nodule brought to the [facility] after wellness check was called to police by her daughter. Patient was foundon the ground unable to get up and was confused. Patient admitted to medical floors for further management of chronic kidney disease, metabolic encephalopathy. # Acute on chronic kidney injury, crescentic glomerulonephritis requiring hemodialysis. -Patient is on hemodialysis Thursday. On prednisone, Bactrim every Thursday. Per drier tender naphthalene patient's kidney biopsy consistent with crescentic glomerulonephritis. Rituximab given on 07/28/2024. Next dose in 2 weeks. Patient is being followed by drier tender naphthalene for hemodia lysis. Upon DC continue oral [...] Recommendations Eloisa Vázquez DO [address] [facility] [address] Schedule an appointment as soon as possible for a visit in 3 day(s) for transition of care visit, If symptoms worsen, As needed Chencho Wayne MD [address] [place] [address] [facility] [address] Schedule an appointment as soon as possible for a visit in 1 week(s) for kidney failure management [address] [address] Discharge Procedure Orders Discharge Diet: [...] from the original note were not included. LEETONIA DISCHARGE SUMMARY Patient Information Ana Contreras : [...] found down on the ground by [facility]. She was unsure the detailsof how [...] will be transferred to the care of [facility] staff for further management of their acute encephalopathy, fall. Hospital course Patient is 79 years old female with past medical history significant for type 2 diabetes, hypertension, chronic kidney disease stage IV, iron deficiency anemia, dyslipidemia, lung nodule brought to the [facility] after wellness check was called to police by her daughter. Patient was foundon the ground unable to get up and was confused. Patient admitted to medical floors for further management of chronic kidney disease, metabolic encephalopathy. # Acute on chronic kidney injury, crescentic glomerulonephritis requiring hemodialysis. -Patient is on hemodialysis Thursday. On prednisone, Bactrim every Thursday. Per drier tender naphthalene patient's kidney biopsy consistent with crescentic glomerulonephritis. Rituximab given on 07/28/2024. Next dose in 2 weeks. Patient is being followed by drier tender naphthalene for hemodia lysis. Upon DC continue oral [...] Instructions and Recommendations DO [address] [facility] [address] Schedule an appointment as soon as possible for a visit in 3 day(s) for transition of care visit, If symptoms worsen, As needed Chencho Wayne MD [address] [facility] [address] Schedule an appointment as soon as possible for a visit in 1 week(s) for kidney failure management [address] [address] Discharge Procedure Orders Discharge Diet: [...] through Care Everywhere. * Diabetes: Renal Diet (Serbian) documented in this encounter Medications at Time [...] Report given to ems, to transport to [facility]. * Chencho Wayne MD - 08/06/2024 [...] Plan Initial Transition Plan Senior Living Facility ([facility] Transportation Transportation at discharge [facility] providing [...] found down on the ground by [facility]. She was unsure the detailsof how [...] will be transferred to the care of [facility] staff for further management of their acute encephalopathy, fall. Hospital course Patient is 79 years old female with past medical history significant for type 2 diabetes, hypertension, chronic kidney disease stage IV, iron deficiency anemia, dyslipidemia, lung nodule brought to the [facility] after wellness check was called to police by her daughter. Patient was foundon the ground unable to get up and was confused. Patient admitted to medical floors for further management of chronic kidney disease, metabolic encephalopathy. # Acute on chronic kidney injury, crescentic glomerulonephritis requiring hemodialysis. -Patient is on hemodialysis Thursday. On prednisone, Bactrim every Thursday. Per drier tender naphthalene patient's kidney biopsy consistent with crescentic glomerulonephritis. Rituximab given on 07/28/2024. Next dose in 2 weeks. Patient is being followed by drier tender naphthalene for hemodia lysis. Upon DC continue oral [...] Plan Initial Transition Plan Senior Living Facility ([facility] Transportation Transportation at discharge [facility] providing transportation [place] What day is the transport expected? 08/05/24 [...] 08/05/24 0001 Adult NPO diet Location: [facility]; Diet: NPO- Except for Medications Diet effective midnight Question Answer Comment Location [facility] Diet NPO- Except for Medications 08/04/24 0838 07/11/24 1133 Dietary nutrition supplements Two times daily (BID); [facility]; Diabetic Supplement Continuous Question Answer Comment Frequency Two times daily (BID) Location [facility] Supplements Diabetic Supplement 07/11/24 1132 History [...] or fat depletion Skin: Skin intact per loom technician Nutrition Diagnosis: Code Type: None Identified Status: [...] weeks and will be tapered by the drier tender naphthalene Continue PPI in the outpatient setting if patient is on prednisone Continue Bactrim DS in the outpatient setting thrice weekly (--) as patient is immunosuppressed Lung mass biopsy with Dr. Montez today s/p transfusion yesterday Outpatient HD arranged at [facility] [place] m-w-f 1st shift [phone] on hold since July 21. I have given orders for the patient to start on Thursday Patient for discharge to [facility] Discussed with medical team. Patient to get transfused today From renal standpoint patient can be discharged today or on Thursday The outpatient facility needs to arrange for rituximab infusion on August 11 or at [facility] outpatient infusion-they can touch base with the renal MD [facility] for that shift for orders and dosage Discussed with the medical team/outpatient dialysis nursing staff and disease case manager rn history Chencho Wayne MD * Prisca Goldman PT - 08/05/2024 7:26 AM EST Therapy session was attempted for Ana Contreras by Prsica Goldman PT on 08/05/2024. The patient was [...] a 79 y.o. female : 1945 MR#: [id number] SUBJECTIVE Subjective Patient seen by the bedside [...] of fentanyl administered during the procedure. Scanner: [email or web address] [address] Dose reduction technique: AEC [...] Signed Date: 07/22/2024 17:00 ET Workstation ID: [id number] Transcribed By: Self Edit Transcribed Date: 07/22/2024 16:58 ET ASSESSMENT & PLAN Patient is 79 years old female with past medical history significant for type 2 diabetes, hypertension, chronic kidney disease stage IV, iron deficiency anemia, dyslipidemia, lung nodule brought to the [facility] after wellness check was called to police by her daughter. Patient was foundon the ground unable to get up and was confused. Patient admitted to medical floors for further management of chronic kidney disease, metabolic encephalopathy. # Acute on chronic kidney injury, crescentic glomerulonephritis requiring hemodialysis. -Patient is on hemodialysis Thursday. On prednisone, Bactrim every Thursday. Per drier tender naphthalene patient's kidney biopsy consistent with crescentic glomerulonephritis. Rituximab given on 07/28/2024. Next dose in 2 weeks. Patient is being followed by drier tender naphthalene for hemodia lysis. # Right upper lobe [...] weeks and will be tapered by the drier tender naphthalene Continue PPI in the outpatient setting if patient is on prednisone Continue Bactrim DS in the outpatient setting thrice weekly (--) as patient is immunosuppressed Lung mass biopsy with Dr. Montez tomorrow Renal diet Outpatient HD arranged at [facility] [place] m-w-f 1st shift [phone] on hold since July 21. I have given orders for the patient to start on Thursday Patient for discharge to [facility] Discussed with medical team. Patient to get transfused today Will follow [facility] team From renal standpoint patient can be discharged tomorrow or on Thursday The outpatient facility needs to arrange for rituximab infusion on August 11 or at [facility] outpatient infusion-they can touch base with the renal MD covering for [place] for that shift for orders and dosage Discussed with the medical team/outpatient dialysis nursing staff and disease case manager rn Chencho Wayne MD * Isidra Florence - 08/04/2024 9:38 AM EST [facility] Physical Therapy Treatment PT Discharge Recommendations: Inpatient rehab facility placement, shelter facility placement Equipment Recommended: rolling walker Staff Recommendations for safe patient handling: min/modA transfers/bed mob Precautions Medical Precautions: Fall Risk Safety Interventions: Call chavarria within reach, ID band on, Bed alarm RUE Weight Bearing Status: Full LUE Weight Bearing Status: Full RLE Weight Bearing Status: Full LLE Weight Bearing Status: Full History of Present Illness: Patient is a 79 y.o. female admitted to [facility] on 07/08/2024 with: Patient Active Problem List Diagnosis Hypertension Hyperlipidemia History of cancer of unknown primary site CKD (chronic kidney disease) stage 4, GFR 15-29 ml/min ([facility]) Iron deficiency anemia Impaired renal function Type 2 diabetes mellitus without complication, without long-term current use of insulin ([facility]) Lung mass Pulmonary nodule Fall prevention education [...] week PT Discharge Recommendations Inpatient rehab facility placement;shelter facility placement Equipment Recommended rolling walker PT [...] PT Discharge Recommendations: Inpatient rehab facility placement, shelter facility placement Equipment Recommended: rolling walker Barriers [...] RN - 08/04/2024 9:17 AM EST This principal technical writer received a call from Beth at [facility] where they have had a dialysis STR bed open and are accepting and going for insurance auth. ICC notified provider and will follow for transfer once insurance auth obtained. * Nelli Schmidt, OT - 08/04/2024 8:30 AM EST [facility] Occupational Therapy Treatment Note DATE: July TIME IN: 0830 TIME OUT: 0900 Pt: Ana Contreras 561/561-2 DISCHARGE RECS: Inpatient rehab facility placement, shelter facility placement EQUIPMENT RECS: Walker-rolling SAFE PT [...] Complete OT Discharge Recommendations Inpatient rehab facility placement;shelter facility placement Equipment Recommended Walker-rolling ADDITIONAL COMMENTS: [...] Discharge Needs Discipline following for SNF placement [facility] DANITZA: 08/06 Barriers: Accepting SNF w HD, Bronch w lung mass bx re-scheduled 08/05, ability to stand/pivot for family to transport to HD. Plan: ACR vs SNF pending accepting facility with HD and or ability to transport to [facility]. [facility] can only continue to hold OPT HD slot until 08/05. ICC s/w family and updated on [facility] options. [facility], , called [facility] and will attempt to assist [...] a 79 y.o. female : 1945 MR#: [id number] SUBJECTIVE Subjective Patient seen by the bedside [...] of fentanyl administered during the procedure. Scanner: [email or web address] [address] Dose reduction technique: AEC [...] Signed Date: 07/22/2024 17:00 ET Workstation ID: [id number] Transcribed By: Self Edit Transcribed Date: 07/22/2024 16:58 ET ASSESSMENT & PLAN Patient is 79 years old female with past medical history significant for type 2 diabetes, hypertension, chronic kidney disease stage IV, iron deficiency anemia, dyslipidemia, lung nodule brought to the [facility] after wellness check was called to police by her daughter. Patient was foundon the ground unable to get up and was confused. Patient admitted to medical floors for further management of chronic kidney disease, metabolic encephalopathy. # Acute on chronic kidney injury, crescentic glomerulonephritis requiring hemodialysis. -Patient is on hemodialysis Thursday. On prednisone, Bactrim every Thursday. Per drier tender naphthalene patient's kidney biopsy consistent with crescentic glomerulonephritis. Rituximab given on 07/28/2024. Next dose in 2 weeks. Patient is being followed by drier tender naphthalene for hemodia lysis. # Right upper lobe [...] mellitus, type 2 (HCC) DVT, lower extremity ([facility]) LEFT LEG Family history of early CAD [...] arranged at [facility] m--f 1st shift [phone] on hold since July 21. We need to know before Thursday if he can give away the chair and patient disposition Consider Kana Fern[facility]dez or Maribeth if going to [facility] Discussed with medical team. Patient to get transfused today Will follow chuck w team If patient discharged before August 11 the outpatient facility needs to arrange for rituximab infusion on August 11 or Chencho Wayne MD * Nelli Schmidt OT - 08/03/2024 9:15 AM EST Therapy session was attempted for [place] A Contreras by Nelli Schmidt OT on [...] Isidra Florence - 08/02/2024 2:31 PM EST [facility] Physical Therapy Treatment PT Discharge Recommendations: Inpatient rehab facility placement, shelter facility placement Equipment Recommended: rolling walker Staff [...] is a 79 y.o. female admitted to [facility] on 07/08/2024 with: Patient Active Problem List Diagnosis Hypertension Hyperlipidemia History of cancer of unknown primary site CKD (chronic kidney disease) stage 4, GFR 15-29 ml/min ([facility]) Iron deficiency anemia Impaired renal function Type 2 diabetes mellitus without complication, without long-term current use of insulin ([facility]) Lung mass Pulmonary nodule Fall prevention education [...] week PT Discharge Recommendations Inpatient rehab facility placement;shelter facility placement Equipment Recommended rolling walker PT [...] PT Discharge Recommendations: Inpatient rehab facility placement, shelter facility placement Equipment Recommended: rolling walker Barriers [...] a 79 y.o. female : 1945 MR#: [id number] SUBJECTIVE Subjective Patient seen by the bedside [...] of fentanyl administered during the procedure. Scanner: [email or web address] [address] Dose reduction technique: AEC [...] Signed Date: 07/22/2024 17:00 ET Workstation ID: [id number] Transcribed By: Self Edit Transcribed Date: 07/22/2024 16:58 ET ASSESSMENT & PLAN Patient is 79 years old female with past medical history significant for type 2 diabetes, hypertension, chronic kidney disease stage IV, iron deficiency anemia, dyslipidemia, lung nodule brought to the [facility] after wellness check was called to police by her daughter. Patient was foundon the ground unable to get up and was confused. Patient admitted to medical floors for further management of chronic kidney disease, metabolic encephalopathy. # Acute on chronic kidney injury, crescentic glomerulonephritis requiring hemodialysis. -Patient is on hemodialysis Thursday. On prednisone, Bactrim every Thursday. Per drier tender naphthalene patient's kidney biopsy consistent with crescentic glomerulonephritis. Rituximab given on 07/28/2024. Next dose in 2 weeks. Patient is being followed by drier tender naphthalene for hemodia lysis. # Right upper lobe [...] Schmidt OT - 08/02/2024 1:35 PM EST [facility] Occupational Therapy Treatment Note DATE: Friday August 02, 2024 TIME IN: 1335 TIME OUT: 1405 Pt: Ana Contreras 561/561-2 DISCHARGE RECS: Inpatient rehab facility placement, shelter facility placement EQUIPMENT RECS: Walker-rolling SAFE PT HANDLING REC FOR STAFF: 1 person min assist with RW PRECAUTIONS: Precautions Medical Precautions: Fall Risk Safety Interventions: Call chavarira within reach, ID band on, Bed alarm [...] Complete OT Discharge Recommendations Inpatient rehab facility placement;shelter facility placement Equipment Recommended Walker-rolling ADDITIONAL COMMENTS: [...] Montez Renal diet Outpatient HD arranged at [facility] 1st shift [phone]) Consider Kana Jolene or Maribeth if going to SNF Discussed with medical team. Patient to get transfused today Will follow [facility] team Chencho Wayne MD * Katina [...] Montez Renal diet Outpatient HD arranged at [facility] 1st shift [phone]) Consider Kana Fernández or Maribeth if going to SNF [facility] Anthony Norton MD * Steve Cruz MD - 08/01/2024 4:42 PM EST Images from the original note were not included. SONYA PROGRESS NOTE Date: 08/01/2024 Author: Steve Cruz MD Patient ID: Ana Contreras is a 79 y.o. female : 1945 MR#: [id number] SUBJECTIVE Subjective Patient seen by the bedside [...] of fentanyl administered during the procedure. Scanner: [email or web address] [address] Dose reduction technique: AEC [...] Signed Date: 07/22/2024 17:00 ET Workstation ID: [id number] Transcribed By: Self Edit Transcribed Date: 07/22/2024 16:58 ET ASSESSMENT & PLAN Patient is 79 years old female with past medical history significant for type 2 diabetes, hypertension, chronic kidney disease stage IV, iron deficiency anemia, dyslipidemia, lung nodule brought to the [facility] after wellness check was called to police by her daughter. Patient was foundon the ground unable to get up and was confused. Patient admitted to medical floors for further management of chronic kidney disease, metabolic encephalopathy. # Acute on chronic kidney injury, crescentic glomerulonephritis requiring hemodialysis. -Patient is on hemodialysis Thursday. On prednisone, Bactrim every Thursday. Per drier tender naphthalene patient's kidney biopsy consistent with crescentic glomerulonephritis. Rituximab given on 07/28/2024. Next dose in 2 weeks. Patient is being followed by drier tender naphthalene for hemodia lysis. # Right upper lobe [...] Camara, RADHIKA - 08/01/2024 11:00 AM EST [place], [place] Acute Care PT TREATMENT 08/01/2024 Patient Information Ana Chaparro Ben 1945 79 y.o. Ambulation: Walking Assistance: Minimum assistance Device: Rolling walker Distance Ambulated (ft): (5 steps to transfer bed to commode + 3 to 4 steps forward and 3 to 4 steps back with RW) PLOF: Level of [place]: Independent with mobility and functional transfers Lives [...] mod assist [facility] tor hand placement. Pt then [...] Schmidt OT - 08/01/2024 10:50 AM EST [facility] Occupational Therapy Treatment Note DATE: Thursday August 01, 2024 TIME IN: 1050 TIME OUT: 1125 Pt: Ana Contreras 561/561-2 DISCHARGE RECS: shelter facility placement, Inpatient rehab facility placement EQUIPMENT [...] - Evaluation Status Complete OT Discharge Recommendations shelter facility placement;Inpatient rehab facility placement Equipment Recommended [...] Start Ordered 07/27/24 1332 Adult diet [facility]; General; Renal- Chronic Kidney Disease; Self-Select Meals Diet effective now Question Answer Comment Location [facility] Diet Type (req) General General Diet Renal- Chronic Kidney Disease Is the patient able to participate in meal ordering? Self-Select Meals 07/27/24 1332 07/11/24 1133 Dietary nutrition supplements Two times daily (BID); [facility]; Diabetic Supplement Continuous Question Answer Comment Frequency Two times daily (BID) Location [facility] Supplements Diabetic Supplement 07/11/24 1132 History [...] at home. No noted food allergies. Appetite TRANSPORTATION BROKER: Poor Intake TRANSPORTATION BROKER: Decreased Weight History: Wt Readings from Last [...] reports improved PO intake since last visit. LITIGATION ATTORNEY ASSOCIATE at bedside who confirmed she has been [...] or fat depletion Skin: Skin intact per loom technician Nutrition Diagnosis: Code Type: None Identified Status: [...] with upper extremity support 08/01/2024 032 by Kaitna Altamirano RN Outcome: Not Progressing 08/01/2024252 by [...] will propel wheelchair household/community distances 08/01/2024320 by Katian Altamirano RN Outcome: Not [...] one surface to another 08/01/2024320 by Katina Altmairano RN Outcome: Not Progressing 08/01/2024252 by Katina [...] a 79 y.o. female : 1945 MR#: [id number] SUBJECTIVE Follow up:metabolic encephalopathy, renal failure requiring [...] of fentanyl administered during the procedure. Scanner: [email or web address] [address] Dose reduction technique: AEC [...] Signed Date: 07/22/2024 17:00 ET Workstation ID: [id number] Transcribed By: Self Edit Transcribed Date: 07/22/2024 16:58 ET ASSESSMENT & PLAN Patient is an 79 woman with HTN, DM2, CKD 4, iron deficiency anemia, hyperlipidemia, and recent diagnosis of lung nodule with planned bronchoscopy and EBUS , she was brought to the [facility] ER on 07/08 after wellness check [...] tomorrow Patient will need SNF with hemodialysis capability([facility] vs [facility]). [facility] already aware and referrals placed. * Katina [...] Montez Renal diet Outpatient HD arranged at [facility] -w- 1st shift [phone]) Consider Kana Jolene or Maribeth if going to [facility] Mindy Katz MD Cosigned by Miguel Quiles MD at 08/02/2024 2:08 PM EST * Jonny Mathur MD - 07/30/2024 12:28 PM EST Images from the original note were not included. SONYA PROGRESS NOTE Date: 07/30/2024 Author: Jonny Mathur MD Patient ID: Ana Contreras is a 79 y.o. female : 1945 MR#: [id number] SUBJECTIVE Follow up:metabolic encephalopathy, renal failure w/renal [...] of fentanyl administered during the procedure. Scanner: [email or web address] 4 slice CT Dose reduction technique: AEC [...] Signed Date: 07/22/2024 17:00 ET Workstation ID: [id number] Transcribed By: Self Edit Transcribed Date: 07/22/2024 [...] a 79 y.o. female : 1945 MR#: [id number] SUBJECTIVE Follow up:metabolic encephalopathy, renal failure requiring [...] of fentanyl administered during the procedure. Scanner: [email or web address] [address] Dose reduction technique: AEC [...] Signed Date: 07/22/2024 17:00 ET Workstation ID: [id number] Transcribed By: Self Edit Transcribed Date: 07/22/2024 [...] room. Report given to primary nurse Melany Hatzis, RN, Next Hemodialysis tx Thursday08/01/2024 Weight [...] Montez Renal diet Outpatient HD arranged at [facility] - 1st shift [phone]) Consider Kana Fernández or [facility] if going [...] a 79 y.o. female : 1945 MR#: [id number] SUBJECTIVE Follow up:metabolic encephalopathy, renal failure requiring [...] of fentanyl administered during the procedure. Scanner: [email or web address] [address] Dose reduction technique: AEC [...] Signed Date: 07/22/2024 17:00 ET Workstation ID: [id number] Transcribed By: Self Edit Transcribed Date: 07/22/2024 [...] AM EST Therapy session was attempted for [place] A Contreras by Jules Woods OT on [...] Montez Renal diet Outpatient HD arranged at [facility] -w-f 1st shift [phone]) Consider [facility] J[facility] or [place] if going to [facility] Miguel Quiles MD * Jonny Mathur MD - 07/27/2024 7:02 PM EST Images from the original note were not included. SONYA PROGRESS NOTE Date: 07/27/2024 Author: Jonny Mathur MD Patient ID: Ana Contreras is a 79 y.o. female : 1945 MR#: [id number] SUBJECTIVE Follow up:metabolic encephalopathy, renal failure requiring [...] of fentanyl administered during the procedure. Scanner: [email or web address] [address] Dose reduction technique: AEC [...] Signed Date: 07/22/2024 17:00 ET Workstation ID: [id number] Transcribed By: Self Edit Transcribed Date: 07/22/2024 [...] 07/27/24 0001 Adult NPO diet Location: [facility]; Diet: NPO- Except for Medications Diet effective midnight Question Answer Comment Location [facility] Diet NPO- Except for Medications 07/26/24 1755 07/11/24 1133 Dietary nutrition supplements Two times daily (BID); [facility]; Diabetic Supplement Continuous Question Answer Comment Frequency Two times daily (BID) Location [facility] Supplements Diabetic Supplement 07/11/24 1132 History of presenting illness: Patient is a 79 y.o. female with a history of Past Medical History: Diagnosis Date Anemia Arthritis Blindness Decreased vision 11/29/2014 DX:Decreased vision Diabetes mellitus, type 2 ([facility]) 02/14/2014 DX:Diabetes mellitus, type 2 (HCC) DVT, [...] at home. No noted food allergies. Appetite TRANSPORTATION BROKER: Poor Intake TRANSPORTATION BROKER: Decreased Weight History: Wt Readings from Last [...] lung biopsy this morning. Currently NPO. Per loom technician, pt consuming 25-50% of meals since last [...] or fat depletion Skin: Skin intact per loom technician Nutrition Diagnosis: Code Type: None Identified Status: [...] Montez Renal diet Outpatient HD arranged at [facility] m-w-f 1st shift [phone]) Consider Kana Fernández or [place] if going to [facility] Miguel Quiles MD * Katina Machuca RN [...] from the original note were not included. LEETONIA PROGRESS NOTE Date: 07/26/2024 Author: Jonny Mathur MD Patient ID: Ana Contreras is a 79 y.o. female : 1945 MR#: [id number] SUBJECTIVE Follow up:metabolic encephalopathy, renal failure requiring [...] of fentanyl administered during the procedure. Scanner: [email or web address] [address] Dose reduction technique: AEC [...] Signed Date: 07/22/2024 17:00 ET Workstation ID: [id number] Transcribed By: Self Edit Transcribed Date: 07/22/2024 [...] Fernández considering pending bed and HD slot. [facility] accepting w family to provide HD transportation support if Pt can get in/out of private vehicle. * Nithya Constantino, PT - 07/26/2024 8:45 AM EST Patient: Ana Contreras Age: 79 y.o. Sex: female Acute encephalopathy [facility] Physical Therapy RE-Evaluation Ambulation: Walking [...] Distance Ambulated (ft): 3 PLOF: Level of Fentress: Independent with mobility and functional transfers Lives With: Alone Type of Home: House Home Adaptive Equipment: Cane, Rollator Home Layout: One level Home Access: Stairs to enter without rails DME Needs: r walker PT Discharge Recommendation: Inpatient rehab facility placement, shelter facility placement Reason for current recommendation based [...] Shower/Tub Tub/shower unit Prior Function Level of Fentress Independent with mobility and functional transfers Ambulation [...] week PT Discharge Recommendations Inpatient rehab facility placement;shelter facility placement Equipment Recommended r walker PT [...] Montez Renal diet Outpatient HD arranged at [facility] m-w-f 1st shift [phone]) Consider Kana Fernández or [place] if going to [facility] Miguel Quiles MD * Katina Machuca RN [...] a 79 y.o. female : 1945 MR#: [id number] SUBJECTIVE Follow up:metabolic encephalopathy, renal failure requiring [...] of fentanyl administered during the procedure. Scanner: [email or web address] [address] Dose reduction technique: AEC [...] Signed Date: 07/22/2024 17:00 ET Workstation ID: [id number] Transcribed By: Self Edit Transcribed Date: 07/22/2024 [...] Montez Renal diet Outpatient HD arranged at [facility] -- 1st shift [phone]) Consider Kana Fernández or [place] if going to [facility] Miguel Quiles MD * Tarsha Corea RN - 07/25/2024 8:45 AM EST DANITZA: 07/28 Barriers: Renal Bx 07/22 w/ path pending, new HD, trend labs, H/H, heparin drip- LLE DVT, repeat Pt eval, lung mass biopsy 07/27 Plan: 1st choice - [facility] Jolene or [place] d/t onsite HD. [facility] accepting w family to provide HD [...] Pt eval, lung mass biopsy 07/27 Plan: [facility] accepting w family to provide HD transportation support. ICK Stuart MD - 07/24/2024 1:11 PM EST Images from the original note were not included. SONYA PROGRESS NOTE Date: 07/24/2024 Author: Lencho Stuart MD Patient ID: Ana Contreras is a 79 y.o. female : 1945 MR#: [id number] SUBJECTIVE CC: Follow-up renal failure No complaints. [...] bed, anticoagulation/lung mass biopsy HCP: Daughter, Dennise. [phone] ICK Golden MD - 07/24/2024 8:59 AM [...] 18 Units/kg/hr, Last Rate: 21 Units/kg/hr (07/23/24 7951) OBJECTIVE Vital signs in last 24 hours: [...] , UROBILINOGUA , NITRITEUA IMPRESSION and PLAN ERNE Glomerulonephritis Anemia CKD 3 RENE remains HD [...] a 79 y.o. female : 1945 MR#: [id number] SUBJECTIVE CC: Follow-up renal failure Post procedure [...] bed. DC likely next week. HCP: DaughterDennise. [phone] * Nelli Schmidt OT - 07/23/2024 9:00 [...] from the original note were not included. LEETONIA PROGRESS NOTE Date: 07/22/2024 Author: Lencho Stuart MD Patient ID: Ana Contreras is a 79 y.o. female : 1945 MR#: [id number] SUBJECTIVE CC: Follow-up renal failure Seen in [...] bed. DC likely next week. HCP: DaughterDennise. [phone] * Kayleigh Laguna RD - 07/22/2024 12:44 [...] 07/22/24 0001 Adult NPO diet Location: [facility]; Diet: NPO- Except for Medications Diet effective midnight Question Answer Comment Location [facility] Diet NPO- Except for Medications 07/21/24 1326 07/11/24 1133 Dietary nutrition supplements Two times daily (BID); [facility]; Diabetic Supplement Continuous Question Answer Comment Frequency Two times daily (BID) Location [facility] Supplements Diabetic Supplement 07/11/24 1132 Food/Nutrition History: Previous Diet / Nutrition Education / Counseling: Per MST screeening, pt reports weight loss of 24-33 lb in past 3 months, and reports poor PO intake. Pt living by herself prior to admission, but hassupport from children. History of DM- takes glipizide at home. No noted food allergies. Appetite TRANSPORTATION BROKER: Poor Intake TRANSPORTATION BROKER: Decreased Weight History: Wt Readings from Last [...] or fat depletion Skin: Skin intact per loom technician Nutrition Diagnosis: Code Type: None Identified Status: [...] bx is CA, Pt may transition to [employer] per family. Per IPR, Pulmonary IR stated possible intervention 07/27. Plan: STR pending accepting facility w HD support. * Nithya Constantino PT - 07/22/2024 8:30 AM EST Patient: Ana Contreras Age: 79 y.o. Sex: female Acute encephalopathy [facility] Physical Therapy Treatment Ambulation: Walking Assistance: Minimum assistance Walking Deficit: Steadying, Verbal cueing, Supervision/safety awareness, Increased time to complete, Assist for trunk control, Assist for weight shifting, Limited endurance, Impaired balance, LE weakness Device: Rolling walker Distance Ambulated (ft): 2 PLOF: Level of Fentress: Independent with mobility and functional transfers Lives [...] Activity 3 sit to stand transfers at [facility], requiring only min assist for lift off [...] Plan PT Discharge Recommendations Inpatient rehab facility placement;shelter facility placement Equipment Recommended r walker Barriers [...] a 79 y.o. female : 1945 MR#: [id number] SUBJECTIVE CC: Follow-up renal failure Seen during [...] DC likely next week. HCP: Daughter, Dennise. [phone] * Louis Wlech RN - 07/21/2024 12:55 PM EST 07/21/24 [...] AM EST Problem: Falls: Fall Risk (Adult [facility]) Goal: (Goal) Patient will experience maximum [...] a 79 y.o. female : 1945 MR#: [id number] SUBJECTIVE CC: Follow-up renal failure Seen in [...] renal biopsy, pending SNF bed. HCP: DaughterDennise. [phone] * Miguel Quiles MD - 07/20/2024 12:09 [...] Age: 79 y.o. Sex: female Acute encephalopathy [facility] Physical Therapy Treatment Ambulation: Walking Assistance: Moderate assistance Device: Rolling walker Distance Ambulated (ft): 2 PLOF: Level of Fentress: Independent with mobility and functional transfers Lives [...] Therapeutic Activity 2 sit-stand transfers at [facility], mod assist to adjust posture, hand and foot posture, and to facilitate forward trunk over ISABELLE. Pt stood, supported at [facility] with mod assist, limited by [...] use of assistive devices, taught by Nithya Cosntantino PT at 07/20/2024 1:24 PM. Learner: Patient [...] a 79 y.o. female : 1945 MR#: [id number] SUBJECTIVE CC: Follow-up RENE, DVT and encephalopathy [...] 1-2 days. Barrier: Heparin, anemia HCP: DaughterDennise. [phone] * Jose Lujan RN - 07/19/2024 11:20 [...] PRN for the MARTINEZ with improvement post media promoter. Pt's floorRN aware of leg pain and [...] Outcome: Adequate for Discharge 07/19/2024 024 by Kaitna Torres RN Outcome: Progressing 07/19/2024 024 by [...] Adequate for Discharge 07/19/2024 0243 by Katina oTrres RN Outcome: Not Progressing 07/19/2024 0242 by [...] a 79 y.o. female : 1945 MR#: [id number] SUBJECTIVE CC: Follow-up RENE, DVT and encephalopathy [...] over the next 1-3 days. HCP: DaughterDennise. [phone] * Kayleigh Laguna, RD - 07/18/2024 4:24 [...] Start Ordered 07/17/24 1206 Adult diet [facility]; Cardiac, Diabetic; 60 gm carb/Meal; Cardiac Diet effective now Question Answer Comment Location [facility] Diet Type (req) Cardiac Diet Type (req) Diabetic Diabetic 60 gm carb/Meal Diet Type (cardiac) Cardiac 07/17/24 1205 07/11/24 1133 Dietary nutrition supplements Two times daily (BID); [facility]; Diabetic Supplement Continuous Question Answer Comment Frequency Two times daily (BID) Location [facility] Supplements Diabetic Supplement 07/11/24 1132 History of presenting illness: Patient is a 79 y.o. female with a history of Past Medical History: Diagnosis Date Anemia Arthritis Blindness Decreased vision 11/29/2014 DX:Decreased vision Diabetes mellitus, type 2 ([facility]/HCC) 02/14/2014 DX:Diabetes mellitus, type 2 (HCC) [...] at home. No noted food allergies. Appetite TRANSPORTATION BROKER: Poor Intake TRANSPORTATION BROKER: Decreased Weight History: Wt Readings from Last [...] or fat depletion Skin: Skin intact per loom technician Nutrition Diagnosis: Code Type: None Identified Status: [...] 1345 Type of Visit: Initial Visit and Director Medicaid Rounding Reason for Visit: Spiritual/Emotional Support and Spiritual Assessment Time Spent: 25 Minutes Location: [address] [place] [address]- Sacramental Encounters: Spiritual Distress Assessment: Spiritual Distress [...] and missed her two cats. Pt reportedbeing Judaism while also reporting that she did not pray often. Director Medicaid's suggestion to pray that evening was received [...] usually? Transcendence Do you have a particular mormonism, jimena, or spirituality? Is your mormonism/spirituality/jimena challenged by what is happening to you [...] EST Ana Contreras 07/08/2024 1945 79 y.o. [id number] Kwesi Guido, * INTERVAL HISTORY: No events [...] Signed Date: 07/16/2024 12:33 ET Workstation ID: [id number] Transcribed By: Self Edit Transcribed Date: 07/16/2024 [...] - pending clinical improvement HCP -Daughter Dennise [phone], she was updated at bedside today. 45 minutes were spent in patient care including zrbh-ae-[id number] time, chart review, discussion with providers, documentation, cost recorder. High complexity medical decision making. Health Care proxy with Phone number: Paul Contreras Jr (Son) Disclaimer: Speech recognition software was utilized to dictate portions of this document. Errors in application dba may be present. Please call / cortext [...] Ana Chaparro Ben 07/08/2024 1945 79 y.o. [id number] Kwesi Guido, * INTERVAL HISTORY: No events [...] Signed Date: 07/16/2024 12:33 ET Workstation ID: [id number] Transcribed By: Self Edit Transcribed Date: 07/16/2024 [...] - pending clinical improvement HCP -Daughter Dennise [phone], she was updated at bedside today. 60 minutes were spent in patient care including [id number]-[id number] time, chart review, discussion with providers, documentation, cost recorder. High complexity medical decision making. Health Care proxy with Phone number: Disclaimer: Speech recognition software was utilized to dictate portions of this document. Errors in application dba may be present. Please call / cortext [...] 2 (CMS/HCC) 02/14/2014 DX:Diabetes mellitus, type 2 ([facility]) Family history of early CAD 03/01/2014 DX:Family [...] 11/29/2014 DX:Decreased vision Diabetes mellitus, type 2 ([facility]/HCC) 02/14/2014 DX:Diabetes mellitus, type 2 ([facility]) Family history of early CAD 03/01/2014 DX:Family [...] Ana Chaparro Contreras 07/08/2024 1945 79 y.o. [id number] Kwesi Guido, * INTERVAL HISTORY: No events [...] - pending clinical improvement HCP -Dr. Bowden [phone], she was updated at bedside today. Health Care proxy with Phone number: Disclaimer: Speech recognition software was utilized to dictate portions of this document. Errors in application dba may be present. Please call / cortext [...] Isidra Florence - 07/14/2024 2:14 PM EST [facility] Physical Therapy Evaluation & Treatment PT Discharge Recommendations: shelter facility placement Staff Recommendations for safe patient [...] is a 79 y.o. female admitted to [facility] on 07/08/2024. Patient Active Problem List Diagnosis Hypertension Hyperlipidemia History of cancer of unknown primary site CKD (chronic kidney disease) stage 4, GFR 15-29 ml/min ([facility]) Iron deficiency anemia Impaired renal function Type 2 diabetes mellitus without complication, without long-term current use of insulin ([facility]) Lung mass Acute encephalopathy Past Medical History: Diagnosis Date Anemia Arthritis Blindness Decreased vision 11/29/2014 DX:Decreased vision Diabetes mellitus, type 2 ([facility]) 02/14/2014 DX:Diabetes mellitus, type 2 ([facility]) Family history of early CAD 03/01/2014 DX:Family [...] Shower/Tub: Tub/shower unit Prior Function Level of Fentress: Independent with mobility and functional transfers Ambulation [...] 1 time per day PT Discharge Recommendations shelter facility placement Equipment Recommended walker PT - [...] is a 79 y.o. female admitted to [facility] on 07/08/2024 for Hyponatremia [E87.1] Acute on [...] deficits listedabove and optimize function. PT recommends shelter facility placement when medically stablefor safe discharge [...] 11/29/2014 DX:Decreased vision Diabetes mellitus, type 2 ([facility]/HCC) 02/14/2014 DX:Diabetes mellitus, type 2 ([facility]) Family history of early CAD 03/01/2014 DX:Family [...] Ana Chaparro Contreras 07/08/2024 1945 79 y.o. [id number] Kwesi Guido, * INTERVAL HISTORY: No events [...] performed without IV contrast. DLP: 613.10 mGy/cm Friend Traveler[employer]Lewis Tank Transport VCT Iterative reconstruction technique Findings: Respiratory motion [...] Small bilateral pleural effusions, [place] ([id number]) -------- FINAL REPORT -------- Dictated By: Edilia Durbin Dictated Date: 07/12/2024 13:07 ET Assigned Physician: Edilia Durbin Reviewed and Electronically Signed By: Edilia Durbin Signed Date: 07/12/2024 13:19 ET Workstation ID: [id number] Transcribed By: Self Edit Transcribed Date: 07/12/2024 [...] - pending clinical improvement HCP -Dr. Bowden [phone], she was updated at bedside today. Health Care proxy with Phone number: Disclaimer: Speech recognition software was utilized to dictate portions of this document. Errors in application dba may be present. Please call / cortext [...] without upper extremity support 07/13/2024 1720 by Mleany Eugene, RN Outcome: Progressing 07/13/2024 1720 by [...] 11/29/2014 DX:Decreased vision Diabetes mellitus, type 2 ([facility]/HCC) 02/14/2014 DX:Diabetes mellitus, type 2 ([facility]) Family history of early CAD 03/01/2014 DX:Family [...] -Review of spot urine for electrolytes protein [id number] Q [place] is not clearly pointing towards significant prerenal [...] No indication today They agree to have PC NETWORK TECHNICIAN if she needs it Discussed with the medical team in detail about the patient Chencho Wayne MD * Kwesi Guido MD - 07/13/2024 10:44 AM EST Ana Contreras 07/08/2024 1945 79 y.o. [id number] Kwesi Guido, * INTERVAL HISTORY: No events [...] - pending clinical improvement HCP -Dr. Bowden [phone], she was updated at bedside today. Health Care proxy with Phone number: Disclaimer: Speech recognition software was utilized to dictate portions of this document. Errors in application dba may be present. Please call / cortext [...] nutrition supplements Two times daily (BID); [facility]; Diabetic Supplement Continuous Question Answer Comment Frequency Two times daily (BID) Location [facility] Supplements Diabetic Supplement 07/11/24 1132 07/11/24 1133 Adult diet [facility]; Cardiac, Diabetic; 75 gm carb/Meal; No Added Salt Diet effective now Question Answer Comment Location [facility] Diet Type (req) Cardiac Diet Type (req) Diabetic Diabetic 75 gm carb/Meal Diet Type (cardiac) No Added Salt 07/11/24 1132 History of presenting illness: Patient is a 79 y.o. female with a history of Past Medical History: Diagnosis Date Anemia Arthritis Blindness Decreased vision 11/29/2014 DX:Decreased vision Diabetes mellitus, type 2 ([facility]/HCC) 02/14/2014 DX:Diabetes mellitus, type 2 ([facility]) Family history of early CAD 03/01/2014 DX:Family [...] at home. No noted food allergies. Appetite TRANSPORTATION BROKER: Poor Intake TRANSPORTATION BROKER: Stable Weight History: Wt Readings from Last [...] or fat depletion Skin: Skin intact per loom technician Nutrition Diagnosis: Code Type: None Identified Status: [...] 2:44 PM DISCH DATE: RESPONDING PROVIDER #: [id number] PROVIDER RESPONSE TEXT: The patient has metabolic encephalopathy. QUERY TEXT: Encephalopathy is documented in the medical record. Please specify the type. H&P 07/08/2024 (3) Patient will be transferred to the care of [facility] staff for further management of their acute [...] EST Ana Contreras 07/08/2024 1945 79 y.o. [id number] Kwesi Guido, * INTERVAL HISTORY: No events [...] Signed Date: 07/10/2024 14:08 ET Workstation ID: [id number] Transcribed By: Self Edit Transcribed Date: 07/10/2024 [...] - pending clinical improvement HCP -Dr. Bowden [phone], she was updated at bedside today. Health Care proxy with Phone number: Disclaimer: Speech recognition software was utilized to dictate portions of this document. Errors in application dba may be present. Please call / cortext [...] Ana Chaparro Contreras 07/08/2024 1945 79 y.o. [id number] Kwesi Guido, * INTERVAL HISTORY: No events [...] Signed Date: 07/10/2024 14:08 ET Workstation ID: [id number] Transcribed By: Self Edit Transcribed Date: 07/10/2024 [...] - pending clinical improvement HCP -Dr. Bowden [phone] Her son Paul was updated at bedside with her permission Health Care proxy with Phone number: Disclaimer: Speech recognition software was utilized to dictate portions of this document. Errors in application dba may be present. Please call / cortext [...] 2:44 PM DISCH DATE: RESPONDING PROVIDER #: [id number] PROVIDER RESPONSE TEXT: The patient has traumatic [...] 11/29/2014 DX:Decreased vision Diabetes mellitus, type 2 ([facility]/HCC) 02/14/2014 DX:Diabetes mellitus, type 2 (HCC) [...] Elmore, OT - 07/11/2024 8:34 AM EST [facility] Occupational Therapy Evaluation DATE: Thursday July 11, 2024 TIME IN: 729 TIME OUT: 819 Pt: Ana Contreras ROOM: 561/561-2 Discharge Recommendation: shelter facility Equipment Recommendation: walker Staff recommendations for [...] is a 79 y.o. female admitted to [facility] on 07/08/2024. Occupational Therapy evaluation and treatment ordered to assess ADL independence, safety, and functional mobility for discharge planning. Patient Active Problem List Diagnosis Hypertension Hyperlipidemia History of cancer of unknown primary site CKD (chronic kidney disease) stage 4, GFR 15-29 ml/min ([facility]) Iron deficiency anemia Impaired renal function Type 2 diabetes mellitus without complication, without long-term current use of insulin ([facility]) Lung mass Acute encephalopathy Past Medical History: Diagnosis Date Anemia Arthritis Blindness Decreased vision 11/29/2014 DX:Decreased vision Diabetes mellitus, type 2 ([facility]/HCC) 02/14/2014 DX:Diabetes mellitus, type 2 ([facility]) Family history of early CAD 03/01/2014 DX:Family [...] - Evaluation Status: Complete OT Discharge Recommendations: shelter facility placement, Home OT Equipment Recommended: Walker-standard, [...] Goldman PT - 07/10/2024 2:37 PM EST [facility] Physical Therapy Evaluation & Treatment PT Discharge Recommendations: shelter facility placement Staff Recommendations for safe patient [...] is a 79 y.o. female admitted to [facility] on 07/08/2024. Patient Active Problem List Diagnosis Hypertension Hyperlipidemia History of cancer of unknown primary site CKD (chronic kidney disease) stage 4, GFR 15-29 ml/min ([facility]) Iron deficiency anemia Impaired renal function Type 2 diabetes mellitus without complication, without long-term current use of insulin ([facility]) Lung mass Acute encephalopathy Past Medical History: Diagnosis Date Anemia Arthritis Blindness Decreased vision 11/29/2014 DX:Decreased vision Diabetes mellitus, type 2 ([facility]) 02/14/2014 DX:Diabetes mellitus, type 2 ([facility]) Family history of early CAD 03/01/2014 DX:Family [...] of Steps: 3 Prior Function Level of [place]: Independent with mobility and functional transfers Ambulation [...] of Steps 3 Prior Function Level of [place] Independent with mobility and functional transfers Ambulation [...] 1 time per day PT Discharge Recommendations shelter facility placement PT - Evaluation Status Complete [...] is a 79 y.o. female admitted to [facility] on 07/08/2024 for Hyponatremia [E87.1] Acute on [...] listed above and optimize function. PT recommends shelter facility placement when medically stable for safe [...] a 79 y.o. female : 1945 MR#: [id number] SUBJECTIVE CC: Here with fall, RENE, hyponatremia [...] Signed Date: 07/09/2024 09:03 ET Workstation ID: [id number] Transcribed By: Self Edit Transcribed Date: 07/09/2024 [...] - pending clinical improvement HCP -Dr. Bowden [phone] -I met with her at the bedside [...] Health RN;PT;OT Discipline following for SNF placement [facility] confirmed demographics w Dennise, daughter. Barriers: [...] a 79 y.o. female : 1945 MR#: [id number] SUBJECTIVE CC: Here with fall, RENE, hyponatremia [...] Signed Date: 07/08/2024 14:07 ET Workstation ID: [id number] Transcribed By: Self Edit Transcribed Date: 07/08/2024 [...] Signed Date: 07/08/2024 12:27 ET Workstation ID: [id number] Transcribed By: Self Edit Transcribed Date: 07/08/2024 [...] Signed Date: 07/08/2024 12:23 ET Workstation ID: [id number] Transcribed By: Self Edit Transcribed Date: 07/08/2024 [...] Dispo -pending clinical improvement HCP -Dr. Bowden [phone] -I met with her at the bedside [...] infectious concerns): [] Yes / [x] No Journeyman Plumber: [] Yes / [x] No If YES, Cardiac Rhythm: [] NSR, [] SB, [] ST, [] A-FIB, [] A-Flutter, [] Pacemaker, [] 1st Degree HB, [] 2nd Degree HB, [] 3rd Degree HB Reason for Journeyman Plumber: VS: Visit Vitals BP (!) 148/62 (BP [...] and [place] Extension: [place] [phone] * Michelle Christie RN - 07/08/2024 3:51 PM EST 07/08/24 1549 Initial Transition Plan Initial Transition Plan Senior Living Facility Back up Transition Plan Back up Transition plan Home Health Care Discharge Planning Contact (Name, Phone #, Relationship) for DC Planning Dennise Nj daughter [phone] Living Arrangements Alone Type of Residence Private residence (apartment with 6 steps to enter/no elevator) Assistive Devices Walker;Cane Support Systems Children;Extended family Medication Coverage Has Med Coverage Under Insurance Plan Yes Anticipated Discharge Needs Home Health PT;RN Discipline following for SNF placement [facility] Patient lives alone in a first floor [...] for wide VNA and STR including: [facility] and placed in [facility]. HCP completed and IM given as [...] - 07/08/2024 10:32 AM EST Pt to [facility] via ems. Unwitnessed mechanical fall [...] REFLEX MICROSCOPIC AND CULTURE - Abnormal Specific [place] Urine 1.020 pH, Urine 5.5 Leukocytes, Urine [...] Procedure Abnormality Status --------- ------ CBC auto differential[[id number]] Abnormal Final result Please view results for these tests on the individual orders. TROPONIN I HIGH SENSITIVITY URINALYSIS WITH REFLEX MICROSCOPIC AND CULTURE Narrative: The following orders were created for panel order Urinalysis with reflex microscopic and culture. Procedure Abnormality Status --------- ------ Urinalysis with reflex ...[[id number]] Abnormal Final result Robertson urine culture tube[[id number]] In process Please view results for these [...] Signed Date: 07/08/2024 12:27 ET Workstation ID: [id number] Transcribed By: Self Edit Transcribed Date: 07/08/2024 12:[address] Head wo Contrast Final Result NO ACUTE INTRACRANIAL ABNORMALITY. -------- FINAL REPORT -------- Dictated By: GLENNA SOLITARIO Dictated Date: 07/08/2024 12:22 ET Assigned Physician: GLENNA SOLITARIO Reviewed and Electronically Signed By: GLENNA SOLITARIO Signed Date: 07/08/2024 12:23 ET Workstation ID: [id number] Transcribed By: Self Edit Transcribed Date: 07/08/2024 [...] - 08/05/2024 10:58 AM EST Plan for [facility] EBUS. Source Note - RYLEY Harris - 07/13/2024 10:28 AM EST Patient currently admitted to [facility] for RENE and anemia. Possible need for HD. Will cancel her lance bronch/EBUS scheduled 07/14/24 and reschedule in the next couple weeks. * RYLEY Rivas - 07/08/2024 3:39 PM EST Images from the original note were not included. SONYA HISTORY AND PHYSICAL Please contact author [RYLEY Rivas] via [employer]. Patient: Ana Contreras Admission Date/Time: 07/08/2024 10:31 [...] found down on the ground by [facility]. She was unsure the details of [...] will be transferred to the care of [facility] staff for further management of their acute encephalopathy, fall. Review of Systems Review of Systems 10 point review of systems negative as otherwise stated in the HPI MEDICAL HISTORY Past Medical History Past Medical History: Diagnosis Date ??? Anemia ??? Arthritis ??? Blindness ??? Decreased vision 11/29/2014 DX:Decreased vision ??? Diabetes mellitus, type 2 ([facility]) 02/14/2014 DX:Diabetes mellitus, type 2 ([facility]) ??? Family history of early CAD 03/01/2014 [...] Signed Date: 07/08/2024 14:07 ET Workstation ID: [id number] Transcribed By: Self Edit Transcribed Date: 07/08/2024 14:[address] Cervical Spine wo Contrast Final Result No acute cervical spine fracture. -------- FINAL REPORT -------- Dictated By: GLENNA SOLITARIO Dictated Date: 07/08/2024 12:24 ET Assigned Physician: GLENNA SOLITARIO Reviewed and Electronically Signed By: GLENNA SOLITARIO Signed Date: 07/08/2024 12:27 ET Workstation ID: [id number] Transcribed By: Self Edit Transcribed Date: 07/08/2024 12:[address] Head wo Contrast Final Result NO ACUTE INTRACRANIAL ABNORMALITY. -------- FINAL REPORT -------- Dictated By: GLENNA SOLITARIO Dictated Date: 07/08/2024 12:22 ET Assigned Physician: GLENNA SOLITARIO Reviewed and Electronically Signed By: GLENNA SOLITARIO Signed Date: 07/08/2024 12:23 ET Workstation ID: [id number] Transcribed By: Self Edit Transcribed Date: 07/08/2024 [...] Start Ordered 07/08/24 1438 Adult diet [facility]; General; Regular Diet effective now Question Answer Comment Location [facility] Diet Type (req) General General Diet Regular 07/08/24 1444 [x] Lines, tubes, drains: IV access [x] Medication reconciliation Health Care proxy with Phone number Dennise Nj daughter [phone] Cosigned by Wayne Donahue MD at 07/15/2024 [...] L4, and 11R. Surgeon: Cecily Montez MD Lease Buyer: None Specimens: Above for pathology/cytology/microbiology Anesthesia: General [...] Insertion of 18g/10cm Bard Powerglide midline Lot: [id number] Exp: 2025-05-28 Indications: Difficult draw with frequent [...] Fela Palomo MD Staff Role Emilie Silva Professional Engineer Dorothea Garay Professional Engineer Lay Roth Professional Engineer Diaz Denise RN CV Invasive Nurse [...] Start Ordered 07/08/24 1438 Adult diet [facility]; General; Regular Diet effective now Question Answer Comment Location [facility] Diet Type (req) General General Diet [...] at home. No noted food allergies. Appetite TRANSPORTATION BROKER: Poor Intake TRANSPORTATION BROKER: Decreased Weight History: Wt Readings from Last [...] stable between 168-178 lb over past year ([id number] lb). Weight in 12/2022 was 184 lb indicating 10 lb (5.4%) weight loss over course of 18 months. Subjective Assessment: Pt seen for nutrition consult/ high MST score. Pt admitted for fall, RENE and hyponatremia. Pt recently diagnosed with lung nodule with planned bronchoscopy and EBUS. Seen by OT and PT- recommending discharge to half-way facility. 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 Family History Problem Relation Name Age of [...] should gradually improve, can get input from drier tender naphthalene, please call me for an y question documented in this encounter Plan of Treatment Upcoming Encounters Date Type Department Care Team (Late st Contact Info) Description 08/22/2024 8:30 AM EST Appointment [facility] [address]nd [place] [phone] 08/23/2024 3:00 PM EST Office Visit Gastroenterology - [address] [place] [phone] Josiane Smith, GARBAGE MAN [address] [facility] [address] [place] [address] 09/05/2024 10:00 AM EDT Office Visit Endocrinology - [place] [address] [place] [phone] Kathy Michelle PA [address] [place] [address] 09/06/2024 11:00 AM EDT Ancillary Procedure [facility] [address] [facility] [address] [place] [phone] 10/06/2024 1:15 PM EDT Office Visit Internal Medicine - [facility] [address] [place] [address] Eloisa Vázquez DO [address] [place] [address] 11/14/2024 11:30 AM EDT Appointment [facility] CT Scan [address] [place] [phone] 12/01/2024 10:00 AM EDT Office Visit Thoracic Surgery - [place] [address] [place] [phone] Cecily Montez MD [address] [facility] [address] [place] [phone] Pending Results Name Type Priority Associated Diagnoses [...] Routine 025 12:20 PM EST Pulmonary nodule MS BRONCHOSCOPY RIGID/FLEXIBLE W/EBUS >=3 MEDIASTINAL/HILAR LYMPH NODES 08/05/2024 11:46 AM EST Pulmonary nodule MS BRONCHOSCOPY INCL FLUROSCOPIC GUIDANCE W PLCMNT FIDUCIAL MARKER SGL/MULT 08/05/2024 11:46 AM EST Pulmonary nodule MS BRONCHOSCOPY RIGID/FLEXIBLE INCL FLUORO W/THERAPY ASPIRATION INITIAL [...] BLOOD Routine 07/11/2024 8: 17 AM EST MS IMMUNOFIXATION ELECTROPHORESIS SERUM Routine 07/11/2024 6:21 AM [...] BLOOD Routine 07/08/2024 6: 19 PM EST MS PROTEIN ELECTROPHORETIC FRACTIONATION & QUANTITATION SERUM Routine [...] PM EST [facility] URINE CULTURE TUBE STAT 01/10/20 25 12:59 PM EST URINALYSIS WITH REFLEX [...] - 100 mg/dL 08/06/2024 11:09 AM EST [facility] Blood Capillary blood specimen / Unknown 08/06/2024 11:07 AM EST 08/06/2024 11:10 AM EST Steve Cruz MD LAB POINT OF CA RE TEST DOCKED DEVICE UNSOLICITED RESULTS Final Result [facility] [address] [place] [address], * (ABNORMAL) POCT Glucose, blood (08/06/2024 7:26 AM EST) Glucose POCT 66(L) 70 - 100 mg/dL 08/06/2024 7:27 AM EST [facility] Blood Capillary blood specimen / Unknown 08/06/2024 7:26 AM EST 08/06/2024 7:28 AM EST us Steve Cruz MD LAB POINT OF CA RE TEST DOCKED DEVICE UNSOLICITED RESULTS Final Result Performing Organization Address [facility] Co de Phone Number [facility] [address] [place] [address], [place] [phone] * (ABNORMAL) POCT Glucose, blood (08/05/2024 8:08 PM EST) Glucose POCT 263(H) 70 - 100 mg/dL 08/05/2024 8:08 PM EST [facility] Blood Capillary blood specimen / Unknown 08/05/2024 8:08 PM EST 08/05/2024 8:09 PM EST us Steve Cruz MD LAB POINT OF CA RE TEST DOCKED DEVICE UNSOLICITED RESULTS Final Result Performing Organization Address [facility] de Phone Number [facility] [address] [place] [address], [place] [phone] * (ABNORMAL) POCT Glucose, blood (08/05/2024 4:40 PM EST) Glucose POCT 270(H) 70 - 100 mg/dL 08/05/2024 4:42 PM EST [facility] Blood Capillary blood specimen / Unknown 08/05/2024 4:40 PM EST 08/05/2024 4:43 PM EST us Steve Cruz MD LAB POINT OF CA RE TEST DOCKED DEVICE UNSOLICITED RESULTS Final Result Performing Organization Address [facility] Co de Phone Number [facility] [address] [place] [address], [place] [phone] * XR Chest 1 View (08/05/2024 1:43 [...] Signed Date: 08/05/2024 13:49 ET Workstation ID: [id number] Transcribed By: Self Edit Transcribed Date: 08/05/2024 [...] Signed Date: 08/05/2024 13:49 ET Workstation ID: [id number] Transcribed By: Self Edit Transcribed Date: 08/05/2024 13:46 ET Cecily Montez MD IMG XR PROCEDURES Final Result * (ABNORMAL) POCT Glucose, blood (08/05/2024 1:40 PM EST) Glucose POCT 148(H) 70 - 100 mg/dL 08/05/2024 1:41 PM EST [facility] Blood Capillary blood specimen / Unknown 08/05/2024 1:40 PM EST 08/05/2024 1:42 PM EST us Steve Cruz MD LAB POINT OF CA RE TEST DOCKED DEVICE UNSOLICITED RESULTS Final Result Performing Organization Address City/[facility]/ZIP Co de Phone Number [facility] [address] [place] [address], [place] [phone] * Concentration (08/05/2024 12:32 PM EST) AFB Concentration Performed 3:05 PM EST [facility] Structure of upper lobe of right lung / Unknown 08/05/2024 12:32 PM EST 08/05/2024 1:17 PM EST Narrative [facility] - 08/06/2024 3:05 PM EST Performed at: ??01 - [facility] [address] ??[id number] Slab Installer: Diane Belle MD, Phone: ??[phone] Cecily Montez MD LAB BLOOD ORDERABLES Final Resul t Performing Organization Address [facility] Co de Phone Number [facility] * Acid fast bacilli stain (08/05/2024 12:32 PM EST) AFB Stain Result No Acid fast bacilli seen on direct smear (Fuchsin method, 1000x) No Acid Fast Bacilli seen on direct smear 08/05/2024 2:18 PM EST [facility] Wash Structure of upper lobe of right lung / Unknown 08/05/2024 12:32 PM EST 08/05/2024 1:17 PM EST us Cecily Montez MD LAB MICROBIOLOGY - GENERAL ORDER SYLVAIN Final Result Performing Organization Address [facility]/ZIP Co de Phone Number [facility] [address] [place] [address], [place] [phone] * Culture bronchial with gram stain (08/05/2024 12:32 PM EST) Bronchial Culture No growth at 3 days 08/08/2024 9:42 AM EST [facility] Gram Stain Result No polymorphonuclear leukocytes, No epithelial cells, and No organisms noted 08/08/2024 9:42 AM EST [facility] Wash Structure of upper lobe of right lung / Unknown 08/05/2024 12:32 PM EST 08/05/2024 1:17 PM EST us Cecily Montez MD LAB MICROBIOLOGY - GENERAL ORDER SYLVAIN Final Result [facility] [address] [place] [address], [place] [phone] * XR Chest 1 View (08/05/2024 12:29 [...] Signed Date: 08/08/2024 07:52 ET Workstation ID: [id number] Transcribed By: Self Edit Transcribed Date: 08/08/2024 [...] Signed Date: 08/08/2024 07:52 ET Workstation ID: [id number] Transcribed By: Self Edit Transcribed Date: 08/08/2024 [...] lymph node elements present. 08/09/2024 1:04 PM EST [facility] Specimen A Adequacy Satisfactory for evaluation 08/09/2024 1:04 PM EST [facility] Specimen B Adequacy Satisfactory for evaluation 08/09/2024 1:04 PM EST [facility] Specimen C Adequacy Satisfactory for evaluation 08/09/2024 1:04 PM EST [facility] Specimen D Adequacy Satisfactory for evaluation 08/09/2024 1:04 PM EST [facility] Specimen E Adequacy Specimen processed and [...] fixation time 54 hours. 08/09/2024 1:04 PM [facility] Disclaimer Unless otherwise specified, all tissue is 10% NB formalin fixed and paraffin embedded. Technical cytopathology services provided by [facility], at [address] [place] [address], [place] [address] (CLIA # [id number]/Gladys Prince MD, Chair Trimmer.) 08/09/2024 1:04 PM [facility] Brushing, function (observable entity) Structure [...] 12:50 PM EST 08/05/2024 2:31 PM EST Cecily Montez MD LAB CYTOLOGY ORDERABLES Final Re sult [facility] [address] [place] [address], * (ABNORMAL) Basic metabolic panel (08/05/2024 7:04 AM EST) Sodium 133 133 - 145 mmol/L LAB CHEMISTRY METHOD 08/05/2024 8:01 AM [facility] Potassium 4.5 3.5 - 5.5 mmol/L LAB CHEMISTRY METHOD 08/05/2024 8:01 AM [facility] Chloride 96 96 - 110 [...] MD LAB BLOOD ORDERABLES Fi nal Result [facility] [address] [place] [address], * (ABNORMAL) CBC - Every 3 Days [...] [facility] LAB BLOOD ORDERABLES Final R esult [facility] [address] [place] [address], [place] [phone] * (ABNORMAL) POCT Glucose, blood (08/04/2024 8:39 PM EST) Glucose POCT 352(H) 70 - 100 mg/dL 08/04/2024 8:40 PM EST [facility] Blood Capillary blood specimen / Unknown 08/04/2024 8:39 PM EST 08/04/2024 8:41 PM EST us Steve Cruz MD LAB POINT OF CA RE TEST DOCKED DEVICE UNSOLICITED RESULTS Final Result [facility] [address] [place] [address], [place] [phone] * (ABNORMAL) POCT Glucose, blood (08/04/2024 5:36 PM EST) Glucose POCT 376(H) 70 - 100 mg/dL 08/04/2024 5:37 PM EST [facility] Blood Capillary blood specimen / Unknown 08/04/2024 5:36 PM EST 08/04/2024 5:38 PM EST us Steve Cruz MD LAB POINT OF CA RE TEST DOCKED DEVICE UNSOLICITED RESULTS Final Result [facility] [address] [place] [address], [place] [phone] * (ABNORMAL) POCT Glucose, blood (08/04/2024 11:05 AM EST) Glucose POCT 130(H) 70 - 100 mg/dL 08/04/2024 11:07 AM EST [facility] Blood Capillary blood specimen / Unknown 08/04/2024 11:05 AM EST 08/04/2024 11:08 AM EST Steve Cruz MD LAB POINT OF CA RE TEST DOCKED DEVICE UNSOLICITED RESULTS Final Result Performing Organization Address [facility] de Phone Number [facility] [address] [place] [address], [place] [phone] * (ABNORMAL) POCT Glucose, blood (08/04/2024 8:03 AM EST) Glucose POCT 116(H) 70 - 100 mg/dL 08/04/2024 8:05 AM EST [facility] Blood Capillary blood specimen / Unknown 08/04/2024 8:03 AM EST 08/04/2024 8:07 AM EST Steve Cruz MD LAB POINT OF CA RE TEST DOCKED DEVICE UNSOLICITED RESULTS Final Result Performing Organization Address [facility] de Phone Number [facility] [address] [place] [address], [place] [phone] * (ABNORMAL) Creatinine, Serum - Every 7 Days (08/04/2024 6:31 AM EST) Creatinine 2.49(H) 0.50 - 1.10 mg/dL LAB CHEMISTRY METHOD 08/04/2024 7:31 AM EST [facility] eGFR 19(L) >=60 mL/min/1. 73m2 LAB CHEMISTRY METHOD 08/04/2024 7:31 AM EST [facility] Comment:Calculation based on the??Chronic Kidney Disease Epidemiology Collaboration (CKD-EPI) equation refit??without adjustment for race. Blood Venous blood specimen / Unknown Venipuncture / Unknown 08/04/2024 6:31 AM EST 08/04/2024 6:54 AM EST Jonny Mathur MD LAB BLOOD ORDERABLES Final Re sult [facility] [address] [place] [address], [place] [phone] * (ABNORMAL) POCT Glucose, blood (08/03/2024 9:59 PM EST) Glucose POCT 135(H) 70 - 100 mg/dL 08/03/2024 9:59 PM EST [facility] Blood Capillary blood specimen / Unknown 08/03/2024 9:59 PM EST 08/03/2024 10:00 PM EST us Steve Cruz MD LAB POINT OF CA RE TEST DOCKED DEVICE UNSOLICITED RESULTS Final Result Performing Organization Address City/[facility]/ZIP Co de Phone Number [facility] [address] [place] [address], [place] [phone] * (ABNORMAL) POCT Glucose, blood (08/03/2024 3:47 PM EST) Glucose POCT 304(H) 70 - 100 mg/dL 08/03/2024 3:48 PM EST [facility] Blood Capillary blood specimen / Unknown 08/03/2024 3:47 PM EST 08/03/2024 3:49 PM EST us Steve Cruz MD LAB POINT OF CA RE TEST DOCKED DEVICE UNSOLICITED RESULTS Final Result [facility] [address] [place] [address], [place] [phone] * (ABNORMAL) POCT Glucose, blood (08/03/2024 12:35 PM EST) Glucose POCT 125(H) 70 - 100 mg/dL 08/03/2024 12:59 PM EST [facility] Blood Capillary blood specimen / Unknown 08/03/2024 12:35 PM EST 08/03/2024 1:00 PM EST us Steve Cruz MD LAB POINT OF CA RE TEST DOCKED DEVICE UNSOLICITED RESULTS Final Result Performing Organization Address [facility] Co de Phone Number [facility] [address] [place] [address], * Hepatitis B surface antigen with reflex to confirmation (08/03/2024 8:49 AM EST) Hepatitis B Surface Ag Negative Negative LAB CHEMISTRY METHOD 08/03/2024 10:11 AM EST [facility] Blood Venous blood specimen / Unknown Venipuncture / Unknown 08/03/2024 8:49 AM EST 08/03/2024 9:22 AM EST Narrative [facility] - 08/03/2024 10:11 AM EST Over the counter supplements containing high doses of biotin may interfere with this assay. ??If interference is suspected, patients shoud be retested after refraining from biotin supplements for 72 hours. Steve Cruz MD LAB BLOOD ORDERABLES Fi nal Result Performing Organization Address [facility] Co de Phone Number [facility] [address] [place] [address], * Hepatitis B surface antibody quantitative (08/03/2024 8:49 AM EST) Pathologist [facility] Hepatitis B Surface Ab Negative Negative LAB CHEMISTRY METHOD 08/03/2024 9:59 AM EST [facility] Hepatitis B Surface Ab Quantitative <3.1 mIU/mL LAB CHEMISTRY METHOD 08/03/2024 9:59 AM EST [facility] Blood Venous blood specimen / Unknown Venipuncture / Unknown 08/03/2024 8:49 AM EST 08/03/2024 9:22 AM EST Narrative [facility] - 08/03/2024 9:59 AM EST >=10 mIU/mL is considered to be consistent with immunity. Steve Cruz MD LAB BLOOD ORDERABLES Fi nal Result [facility] [address] [place] [address], * (ABNORMAL) Complete blood count (08/03/2024 8:49 AM EST) [facility] WBC 8.5 4.8 - 10.8 K/mcL LAB HEMETOLOGY METHOD 08/03/2024 9:28 AM [facility] RBC 2.90(L) 3.80 - 4.80 M/mcL LAB HEMETOLOGY METHOD 08/03/2024 9:28 AM [facility] Hemoglobin 7.7(L) 11.5 - 16.0 g/dL LAB HEMETOLOGY METHOD 08/03/2024 9:28 AM [facility] Hematocrit 24.6(L) 35.0 - 47.0 % LAB HEMETOLOGY METHOD 08/03/2024 9:28 AM [facility] MCV 84.2 79.0 - 98.0 FL LAB HEMETOLOGY METHOD 08/03/2024 9:28 AM [facility] MCH 26.4(L) 27.0 - 32.0 pcg LAB HEMETOLOGY METHOD 08/03/2024 9:28 AM [facility] MCHC 31.3(L) 32.0 - 37.0 g/dL LAB HEMETOLOGY METHOD 08/03/2024 9:28 AM [facility] RDW 21.8(H) 11.0 - 15.0 % LAB HEMETOLOGY METHOD 08/03/2024 9:28 AM [facility] Platelets 186 130 - 400 K/mcL LAB HEMETOLOGY METHOD 08/03/2024 9:28 AM EST [facility] [facility] MPV 10.5 7.0 - 11.0 [place] LAB HEMETOLOGY METHOD 08/03/2024 9:28 AM [facility] NRBC 0.0 <1.0 % LAB HEMETOLOGY METHOD 08/03/2024 9:28 AM [facility] LAB NRBC Absolute 0.00 <0.10 K/[facility] LAB HEMETOLOGY METHOD 08/03/2024 9:28 AM [facility] Blood Venous blood specimen / Unknown Venipuncture / Unknown 08/03/2024 8:49 AM EST 08/03/2024 9:22 AM EST Steve Cruz MD LAB BLOOD ORDERABLES Fi nal Result [facility] [address] [place] [address], * (ABNORMAL) CBC auto differential (08/03/2024 6:01 AM EST) WBC 7.5 4.8 - 10.8 K/mcL LAB HEMETOLOGY METHOD 08/03/2024 7:49 AM [facility] RBC 2.90(L) 3.80 - 4.80 M/mcL LAB HEMETOLOGY METHOD 08/03/2024 7:49 AM [facility] LAB HEMETOLOGY METHOD 08/03/2024 7:49 AM EST [facility] Lymphocytes Absolute 0.96(L) 1.00 - 5.00 K/mcL LAB HEMETOLOGY METHOD 08/03/2024 7:49 AM [facility] Monocytes Absolute 0.60 0.20 - 1.00 K/mcL LAB HEMETOLOGY METHOD 08/03/2024 7:49 AM EST [facility] Eosinophils Absolute 0.03 0.00 - 0.50 K/[facility] LAB HEMETOLOGY METHOD 08/03/2024 7:49 AM [facility] Basophils Absolute 0.01 0.00 - 0.20 [facility] LAB HEMETOLOGY METHOD 08/03/2024 7:49 AM [facility] LAB Immature Granulocytes Absolute 0.11(H) 0.00 - 0.03 [facility] LAB HEMETOLOGY METHOD 08/03/2024 7:49 AM EST [facility] LAB Blood Venous blood specimen / Unknown Venipuncture / Unknown 08/03/2024 6:01 AM EST 08/03/2024 7:27 AM EST us Steve Cruz MD LAB BLOOD ORDERABLES Fi nal Result [facility] [address] [place] [address], * Magnesium (08/03/2024 6:01 AM EST) Magnesium 2.1 1.9 - 2.6 mg/dL LAB CHEMISTRY METHOD 08/03/2024 8:11 AM EST [facility] Blood Venous blood specimen / Unknown Venipuncture / Unknown 08/03/2024 6:01 AM EST 08/03/2024 7:27 AM EST us Steve Cruz MD LAB BLOOD ORDERABLES Fi nal Result Performing Organization Address City/[facility]/ZIP Co de Phone Number [facility] [address] [place] [address], [place] [phone] * Phosphorus (08/03/2024 6:01 AM EST) Phosphorus 4.3 2.5 - 4.5 mg/dL LAB CHEMISTRY METHOD 08/03/2024 8:11 AM EST [facility] Blood Venous blood specimen / Unknown Venipuncture / Unknown 08/03/2024 6:01 AM EST 08/03/2024 7:27 AM EST Steve Cruz MD LAB BLOOD ORDERABLES Fi nal Result Performing Organization Address [facility] Co de Phone Number [facility] [address] [place] [address], * (ABNORMAL) POCT Glucose, blood (08/02/2024 7:33 PM EST) Glucose POCT 241(H) 70 - 100 mg/dL 08/02/2024 7:34 PM EST [facility] Blood Capillary blood specimen / Unknown 08/02/2024 7:33 PM EST 08/02/2024 7:35 PM EST us Steve Cruz MD LAB POINT OF CA RE TEST DOCKED DEVICE UNSOLICITED RESULTS Final Result Performing Organization Address City/[facility]/ZIP Co de Phone Number [facility] [address] [place] [address], [place] [phone] * (ABNORMAL) POCT Glucose, blood (08/02/2024 4:27 PM EST) Glucose POCT 212(H) 70 - 100 mg/dL 08/02/2024 4:29 PM EST [facility] Blood Capillary blood specimen / Unknown 08/02/2024 4:27 PM EST 08/02/2024 4:29 PM EST us Steve Cruz MD LAB POINT OF CA RE TEST DOCKED DEVICE UNSOLICITED RESULTS Final Result Performing Organization Address City/[facility]/ZIP Co de Phone Number [facility] [address] [place] [address], [place] [phone] * Type and screen (08/02/2024 3:04 PM EST) ABO Group O 08/02/2024 4:52 PM EST [facility] Rh Type Positive 08/02/2024 4:52 PM EST [facility] Antibody Screen Negative 08/02/2024 4:52 PM EST [facility] Blood Venous blood specimen / Unknown Venipuncture / Unknown 08/02/2024 3:04 PM EST 08/02/2024 4:07 PM EST us Steve Cruz MD LAB BLOOD BANK TEST ORD ERABLES Final Result Performing Organization Address City/[facility]/ZIP Co de Phone Number [facility] [address] [place] [address], [place] [phone] * Prepare RBC: 1 Units (08/02/2024 2:09 PM EST) Product Code [id number] 08/02/2024 6:27 PM EST [facility] Unit Number [id number] 08/02/19 6:27 PM EST [facility] Crossmatch Compatible 08/02/2024 5:03 PM EST [facility] Dispense Status Transfused 08/02/2024 6:27 PM EST [facility] Unit ABO Rh OPOS 08/02/2024 6:27 PM EST [facility] Unit Expiration Date Time [id number] 08/02/2024 6:27 PM EST [facility] Unit Blood Type 5100 08/02/2024 6:27 PM EST [facility] Blood Venous blood specimen / Unknown 08/02/2024 2:09 PM EST 08/02/2024 4:07 PM EST us Steve Cruz MD BLOOD BANK PRODUCT ORDE JACEY Final Result [facility] [address] [place] [address], [place] [phone] * (ABNORMAL) POCT Glucose, blood (08/02/2024 11:26 AM EST) Glucose POCT 153(H) 70 - 100 mg/dL 08/02/2024 11:41 AM EST [facility] Blood Capillary blood specimen / Unknown 08/02/2024 11:26 AM EST 08/02/2024 11:43 AM EST us Steve Cruz MD LAB POINT OF CA RE TEST DOCKED DEVICE UNSOLICITED RESULTS Final Result [facility] [address] [place] [address], [place] [phone] * POCT Glucose, blood (08/02/2024 7:46 AM EST) Glucose POCT 90 70 - 100 mg/dL 08/02/2024 7:46 AM EST [facility] Blood Capillary blood specimen / Unknown 08/02/2024 7:46 AM EST 08/02/2024 7:48 AM EST us Steve Cruz MD LAB POINT OF CA RE TEST DOCKED DEVICE UNSOLICITED RESULTS Final Result [facility] [address] [place] [address], * (ABNORMAL) CBC - Every 3 Days (08/02/2024 6:06 AM EST) WBC 8.0 4.8 - 10.8 K/mcL LAB HEMETOLOGY METHOD 08/02/2024 7:45 AM [facility] RBC 2.70(L) 3.80 - 4.80 M/mcL LAB HEMETOLOGY METHOD 08/02/2024 7:45 AM [facility] Hemoglobin 7.0(L) 11.5 - 16.0 g/dL LAB HEMETOLOGY METHOD 08/02/2024 7:45 AM [facility] LAB Hematocrit 22.9(L) 35.0 - 47.0 % LAB HEMETOLOGY METHOD 08/02/2024 7:45 AM [facility] MCV 84.2 79.0 - 98.0 FL LAB HEMETOLOGY METHOD 08/02/2024 7:45 AM [facility] MCH 25.7(L) 27.0 - 32.0 pcg LAB HEMETOLOGY METHOD 08/02/2024 7:45 AM [facility] MCHC 30.6(L) 32.0 - 37.0 g/dL LAB HEMETOLOGY METHOD 08/02/2024 7:45 AM [facility] RDW 23.4(H) 11.0 - 15.0 % LAB HEMETOLOGY METHOD 08/02/2024 7:45 AM [facility] Platelets 205 130 - 400 K/mcL LAB HEMETOLOGY METHOD 08/02/2024 7:45 AM [facility] MPV 11.0 7.0 - 11.0 FL LAB HEMETOLOGY METHOD 08/02/2024 7:45 AM EST [facility] NRBC 0.0 <1.0 % LAB HEMETOLOGY METHOD 08/02/2024 7:45 AM EST [facility] NRBC Absolute 0.00 <0.10 K/mcL LAB HEMETOLOGY METHOD 08/02/2024 7:45 AM EST [facility] Blood Venous blood specimen / Unknown Venipuncture / Unknown 08/02/2024 6:06 AM EST 08/02/2024 7:23 AM EST Lencho Stuart MD LAB BLOOD ORDERABLES Final R esult [facility] [address] [place] [address], [place] [phone] * (ABNORMAL) POCT Glucose, blood (08/01/2024 7:43 PM EST) Glucose POCT 209(H) 70 - 100 mg/dL 08/01/2024 7:44 PM EST [facility] Blood Capillary blood specimen / Unknown 08/01/2024 7:43 PM EST 08/01/2024 7:44 PM EST Steve Cruz MD LAB POINT OF CA RE TEST DOCKED DEVICE UNSOLICITED RESULTS Final Result [facility] [address] [place] [address], [place] [phone] * (ABNORMAL) POCT Glucose, blood (08/01/2024 5:20 PM EST) Glucose POCT 168(H) 70 - 100 mg/dL 08/01/2024 5:21 PM EST [facility] Blood Capillary blood specimen / Unknown 08/01/2024 5:20 PM EST 08/01/2024 5:22 PM EST us Steve Cruz MD LAB POINT OF CA RE TEST DOCKED DEVICE UNSOLICITED RESULTS Final Result Performing Organization Address [facility] Co de Phone Number [facility] [address] [place] [address], [place] [phone] * (ABNORMAL) POCT Glucose, blood (08/01/2024 11:03 AM EST) Glucose POCT 149(H) 70 - 100 mg/dL 08/01/2024 11:03 AM EST [facility] Blood Capillary blood specimen / Unknown 08/01/2024 11:03 AM EST 08/01/2024 11:04 AM EST us Steve Cruz MD LAB POINT OF CA RE TEST DOCKED DEVICE UNSOLICITED RESULTS Final Result Performing Organization Address [facility] Co de Phone Number [facility] [address] [place] [address], [place] [phone] * (ABNORMAL) POCT Glucose, blood (08/01/2024 8:59 AM EST) Glucose POCT 128(H) 70 - 100 mg/dL 08/01/2024 9:01 AM EST [facility] Blood Capillary blood specimen / Unknown 08/01/2024 8:59 AM EST 08/01/2024 9:02 AM EST us Steve Cruz MD LAB POINT OF CA RE TEST DOCKED DEVICE UNSOLICITED RESULTS Final Result Performing Organization Address City/[facility]/ZIP Co de Phone Number [facility] [address] [place] [address], [place] [phone] * POCT Glucose, blood (08/01/2024 7:34 AM EST) Glucose POCT 75 70 - 100 mg/dL 08/01/2024 7:35 AM [facility] Blood Capillary blood specimen / Unknown 08/01/2024 7:34 AM EST 08/01/2024 7:36 AM EST Steve Cruz MD LAB POINT OF CA RE TEST DOCKED DEVICE UNSOLICITED RESULTS Final Result [facility] [address] [place] [address], [place] [phone] * (ABNORMAL) CBC auto differential (08/01/2024 6:59 AM EST) WBC 9.2 4.8 - 10.8 K/mcL LAB HEMETOLOGY METHOD 08/01/2024 8:20 AM [facility] RBC 3.00(L) 3.80 - 4.80 M/mcL LAB HEMETOLOGY METHOD 08/01/2024 8:20 AM [facility] Hemoglobin 7.7(L) 11.5 - 16.0 g/dL LAB HEMETOLOGY METHOD 08/01/2024 8:20 AM [facility] LAB Hematocrit 25.2(L) 35.0 - 47.0 % LAB HEMETOLOGY METHOD 08/01/2024 8:20 AM [facility] LAB MCV 84.6 79.0 - 98.0 FL LAB HEMETOLOGY METHOD 08/01/2024 8:20 AM [facility] LAB MCH 25.8(L) 27.0 - 32.0 pcg LAB HEMETOLOGY METHOD 08/01/2024 8:20 AM [facility] LAB MCHC 30.6(L) 32.0 - 37.0 g/dL LAB HEMETOLOGY METHOD 08/01/2024 8:20 AM [facility] LAB RDW 23.5(H) 11.0 - 15.0 % LAB HEMETOLOGY METHOD 08/01/2024 8:20 AM [facility] LAB Platelets 220 130 - 400 K/mcL LAB HEMETOLOGY METHOD 08/01/2024 8:20 AM [facility] LAB MPV 11.3(H) 7.0 - 11.0 FL LAB HEMETOLOGY METHOD 08/01/2024 8:20 AM [facility] LAB NRBC 0.0 <1.0 % LAB HEMETOLOGY METHOD 08/01/2024 8:20 AM [facility] NRBC Absolute 0.00 <0.10 K/mcL LAB HEMETOLOGY METHOD 08/01/2024 8:20 AM [facility] Neutrophils Relative 77.4 % LAB HEMETOLOGY METHOD 08/01/2024 8:20 AM [facility] Lymphocytes Relative 12.6 % LAB HEMETOLOGY METHOD 08/01/2024 8:20 AM [facility] Monocytes Relative 7.6 % LAB HEMETOLOGY METHOD 08/01/2024 8:20 AM [facility] Eosinophils Relative 0.9 % LAB HEMETOLOGY METHOD 08/01/2024 8:20 AM [facility] Basophils Relative 0.1 % LAB HEMETOLOGY METHOD 08/01/2024 8:20 AM [facility] Immature Granulocytes Relative 1.4 % LAB HEMETOLOGY METHOD 08/01/2024 8:20 AM [facility] Neutrophils Absolute 7.09(H) 1.50 - 7.00 K/mcL LAB HEMETOLOGY METHOD 08/01/2024 8:20 AM [facility] Lymphocytes Absolute 1.16 1.00 - 5.00 K/mcL LAB HEMETOLOGY METHOD 08/01/2024 8:20 AM [facility] Monocytes Absolute 0.70 0.20 - 1.00 K/mcL LAB HEMETOLOGY METHOD 08/01/2024 8:20 AM EST [facility] Eosinophils Absolute 0.08 0.00 - 0.50 K/mcL LAB HEMETOLOGY METHOD 08/01/2024 8:20 AM EST [facility] Basophils Absolute 0.01 0.00 - 0.20 K/mcL LAB HEMETOLOGY METHOD 08/01/2024 8:20 AM EST [facility] Immature Granulocytes Absolute 0.13(H) 0.00 - 0.03 K/mcL LAB HEMETOLOGY METHOD 08/01/2024 8:20 AM [facility] Blood Venous blood specimen / Unknown Existing Catheter / Unknown 08/01/2024 6:59 AM EST 08/01/2024 8:07 AM EST us Jonny Mathur MD LAB BLOOD ORDERABLES Final Re sult [facility] [address] [place] [address], [place] [phone] * (ABNORMAL) Basic metabolic panel (08/01/2024 6:59 AM EST) Sodium 132(L) 133 - 145 mmol/L LAB CHEMISTRY METHOD 08/01/2024 8:41 AM [facility] Potassium 4.7 3.5 - 5.5 mmol/L LAB CHEMISTRY METHOD 08/01/2024 8:41 AM [facility] Chloride 96 96 - 110 mmol/L LAB CHEMISTRY METHOD 08/01/2024 8:41 AM [facility] CO2 30 21 - 32 mmol/L LAB CHEMISTRY METHOD 08/01/2024 8:41 AM [facility] Anion Gap 6 3 - 11 LAB CHEMISTRY METHOD 08/01/2024 8:41 AM [facility] Glucose 74 70 - 100 mg/dL LAB CHEMISTRY METHOD 08/01/2024 8:41 AM [facility] BUN 71(H) 5 - 25 mg/dL LAB CHEMISTRY METHOD 08/01/2024 8:41 AM EST [facility] Creatinine 4.62(H) 0.50 - 1.10 mg/dL LAB CHEMISTRY METHOD 08/01/2024 8:41 AM [facility] eGFR 9(L) >=60 mL/min/1. 73m2 LAB CHEMISTRY METHOD 08/01/2024 8:41 AM EST [facility] Comment:Calculation based on the??Chronic Kidney Disease Epidemiology Collaboration (CKD-EPI) equation refit??without adjustment for race. BUN/Creatinine Ratio 15.4 LAB CHEMISTRY METHOD 08/01/2024 8:41 AM EST [facility] Calcium 8.6 8.5 - 10.5 mg/dL LAB CHEMISTRY METHOD 08/01/2024 8:41 AM EST [facility] Blood Venous blood specimen / Unknown Existing Catheter / Unknown 08/01/2024 6:59 AM EST 08/01/2024 8:07 AM EST us Jonny Mathur MD LAB BLOOD ORDERABLES Final Re sult [facility] [address] [place] [address], * (ABNORMAL) POCT Glucose, blood (07/31/2024 8:23 PM EST) Glucose POCT 279(H) 70 - 100 mg/dL 07/31/2024 8:24 PM EST [facility] POCT Comment RN Notified 07/31/2024 8:24 PM EST [facility] Blood Capillary blood specimen / Unknown 07/31/2024 8:23 PM EST 07/31/2024 8:25 PM EST us Jonny Mathur MD LAB POINT OF CARE TE ST DOCKED DEVICE UNSOLICITED RESULTS Final Result Performing Organization Address [facility]/ZIP Co de Phone Number [facility] [address] [place] [address], [place] [phone] * (ABNORMAL) POCT Glucose, blood (07/31/2024 4:20 PM EST) [facility] Glucose POCT 241(H) 70 - 100 mg/dL 07/31/2024 4:21 PM EST [facility] Blood Capillary blood specimen / Unknown 07/31/2024 4:20 PM EST 07/31/2024 4:22 PM EST us Jonny Mathur MD LAB POINT OF CARE TE ST DOCKED DEVICE UNSOLICITED RESULTS Final Result Performing Organization Address [facility]/ZIP Co de Phone Number [facility] [address] [place] [address], [place] [phone] * (ABNORMAL) Hemoglobin and hematocrit (07/31/2024 2:30 PM EST) [facility] Hemoglobin 7.3(L) 11.5 - 16.0 g/dL LAB HEMETOLOGY METHOD 07/31/2024 3:12 PM EST [facility] Hematocrit 23.7(L) 35.0 - 47.0 % LAB HEMETOLOGY METHOD 07/31/2024 3:12 PM EST [facility] Blood Venous blood specimen / Unknown Venipuncture / Unknown 07/31/2024 2:30 PM EST 07/31/2024 3:05 PM EST us Jonny Mathur MD LAB BLOOD ORDERABLES Final Re sult Performing Organization Address City/[facility]/ZIP Co de Phone Number [facility] [address] [place] [address], [place] [phone] * (ABNORMAL) POCT Glucose, blood (07/31/2024 11:22 AM EST) [facility] Glucose POCT 132(H) 70 - 100 mg/dL 07/31/2024 11:24 AM EST [facility] Blood Capillary blood specimen / Unknown 07/31/2024 11:22 AM EST 07/31/2024 11:25 AM EST us Jonny Mathur MD LAB POINT OF CARE TE ST DOCKED DEVICE UNSOLICITED RESULTS Final Result [facility] [address] [place] [address], [place] [phone] * (ABNORMAL) POCT Glucose, blood (07/31/2024 8:06 AM EST) [facility] Glucose POCT 112(H) 70 - 100 mg/dL 07/31/2024 8:06 AM EST [facility] Blood Capillary blood specimen / Unknown 07/31/2024 8:06 AM EST 07/31/2024 8:08 AM EST us Jonny Mathur MD LAB POINT OF CARE TE ST DOCKED DEVICE UNSOLICITED RESULTS Final Result [facility] [address] [place] [address], [place] [phone] * (ABNORMAL) CBC auto differential (07/31/2024 5:43 AM EST) [facility] WBC 7.4 4.8 - 10.8 K/mcL LAB HEMETOLOGY METHOD 07/31/2024 7:02 AM EST [facility] RBC 2.60(L) 3.80 - 4.80 M/mcL LAB HEMETOLOGY METHOD 07/31/2024 7:02 AM EST [facility] Hemoglobin 6.7(L) 11.5 - 16.0 g/dL LAB HEMETOLOGY METHOD 07/31/2024 7:02 AM EST [facility] Hematocrit 22.0(L) 35.0 - 47.0 % LAB HEMETOLOGY METHOD 07/31/2024 7:02 AM [facility] MCV 84.0 79.0 - 98.0 FL LAB HEMETOLOGY METHOD 07/31/2024 7:02 AM [facility] MCH 25.6(L) 27.0 - 32.0 pcg LAB HEMETOLOGY METHOD 07/31/2024 7:02 AM [facility] MCHC 30.5(L) 32.0 - 37.0 g/dL LAB HEMETOLOGY METHOD 07/31/2024 7:02 AM [facility] RDW 23.1(H) 11.0 - 15.0 % LAB HEMETOLOGY METHOD 07/31/2024 7:02 AM [facility] Platelets 183 130 - 400 K/mcL LAB HEMETOLOGY METHOD 07/31/2024 7:02 AM [facility] MPV 11.1(H) 7.0 - 11.0 FL LAB HEMETOLOGY METHOD 07/31/2024 7:02 AM [facility] NRBC 0.0 <1.0 % LAB HEMETOLOGY METHOD 07/31/2024 7:02 AM [facility] NRBC Absolute 0.00 <0.10 K/mcL LAB HEMETOLOGY METHOD 07/31/2024 7:02 AM [facility] Neutrophils Relative 77.7 % LAB HEMETOLOGY METHOD 07/31/2024 7:02 AM [facility] Lymphocytes Relative 11.7 % LAB HEMETOLOGY METHOD 07/31/2024 7:02 AM [facility] Monocytes Relative 8.6 % LAB HEMETOLOGY METHOD 07/31/2024 7:02 AM [facility] Eosinophils Relative 0.3 % LAB HEMETOLOGY METHOD 07/31/2024 7:02 AM EST [facility] Basophils Relative 0.1 % LAB HEMETOLOGY METHOD 07/31/2024 7:02 AM EST [facility] Immature Granulocytes Relative 1.6 % LAB HEMETOLOGY METHOD 07/31/2024 7:02 AM [facility] Neutrophils Absolute 5.77 1.50 - 7.00 K/mcL LAB HEMETOLOGY METHOD 07/31/2024 7:02 AM [facility] Lymphocytes Absolute 0.87(L) 1.00 - 5.00 K/mcL LAB HEMETOLOGY METHOD 07/31/2024 7:02 AM [facility] Monocytes Absolute 0.64 0.20 - 1.00 K/mcL LAB HEMETOLOGY METHOD 07/31/2024 7:02 AM [facility] Eosinophils Absolute 0.02 0.00 - 0.50 K/mcL LAB HEMETOLOGY METHOD 07/31/2024 7:02 AM [facility] Basophils Absolute 0.01 0.00 - 0.20 K/mcL LAB HEMETOLOGY METHOD 07/31/2024 7:02 AM [facility] Immature Granulocytes Absolute 0.12(H) 0.00 - 0.03 K/mcL LAB HEMETOLOGY METHOD 07/31/2024 7:02 AM [facility] Blood Venous blood specimen / Unknown Existing Catheter / Unknown 07/31/2024 5:43 AM EST 07/31/2024 6:34 AM EST us Jonny Mathur MD LAB BLOOD ORDERABLES Final Re sult [facility] [address] [place] [address], [place] [phone] * (ABNORMAL) Basic metabolic panel (07/31/2024 5:43 AM EST) Sodium 132(L) 133 - 145 mmol/L LAB CHEMISTRY METHOD 07/31/2024 7:22 AM [facility] Potassium 4.4 3.5 - 5.5 mmol/L LAB CHEMISTRY METHOD 07/31/2024 7:22 AM [facility] Chloride 94(L) 96 - 110 mmol/L LAB CHEMISTRY METHOD 07/31/2024 7:22 AM [facility] CO2 31 21 - 32 mmol/L LAB CHEMISTRY METHOD 07/31/2024 7:22 AM [facility] Anion Gap 7 3 - 11 LAB CHEMISTRY METHOD 07/31/2024 7:22 AM [facility] Glucose 123(H) 70 - 100 mg/dL LAB CHEMISTRY METHOD 07/31/2024 7:22 AM [facility] BUN 54(H) 5 - 25 mg/dL LAB CHEMISTRY METHOD 07/31/2024 7:22 AM [facility] Creatinine 3.73(H) 0.50 - 1.10 mg/dL LAB CHEMISTRY METHOD 07/31/2024 7:22 AM [facility] eGFR 12(L) >=60 mL/min/1. 73m2 LAB CHEMISTRY METHOD 07/31/2024 7:22 AM [facility] Comment:Calculation based on the??Chronic Kidney Disease Epidemiology Collaboration (CKD-EPI) equation refit??without adjustment for race. BUN/Creatinine Ratio 14.5 LAB CHEMISTRY METHOD 07/31/2024 7:22 AM [facility] Calcium 8.3(L) 8.5 - 10.5 mg/dL LAB CHEMISTRY METHOD 07/31/2024 7:22 AM [facility] Blood Venous blood specimen / Unknown Existing Catheter / Unknown 07/31/2024 5:43 AM EST 07/31/2024 6:36 AM EST us Jonny Mathur MD LAB BLOOD ORDERABLES Final Re sult [facility] [address] [place] [address], [place] [phone] * (ABNORMAL) POCT Glucose, blood (07/30/2024 7:51 PM EST) Glucose POCT 315(H) 70 - 100 mg/dL 07/30/2024 7:51 PM EST [facility] Blood Capillary blood specimen / Unknown 07/30/2024 7:51 PM EST 07/30/2024 7:52 PM EST us Jonny Matuhr MD LAB POINT OF CARE TE ST DOCKED DEVICE UNSOLICITED RESULTS Final Result Performing Organization Address [facility]/ZIP Co de Phone Number [facility] [address] [place] [address], [place] [phone] * (ABNORMAL) POCT Glucose, blood (07/30/2024 5:02 PM EST) Glucose POCT 299(H) 70 - 100 mg/dL 07/30/2024 5:03 PM EST [facility] Blood Capillary blood specimen / Unknown 07/30/2024 5:02 PM EST 07/30/2024 5:04 PM EST us Jonny Mathur MD LAB POINT OF CARE TE ST DOCKED DEVICE UNSOLICITED RESULTS Final Result Performing Organization Address City/[facility]/ZIP Co de Phone Number [facility] [address] [place] [address], [place] [phone] * (ABNORMAL) Hemoglobin and hematocrit (07/30/2024 3:32 PM EST) Hemoglobin 7.1(L) 11.5 - 16.0 g/dL LAB HEMETOLOGY METHOD 07/30/2024 3:53 PM EST [facility] Hematocrit 23.1(L) 35.0 - 47.0 % LAB HEMETOLOGY METHOD 07/30/2024 3:53 PM [facility] Blood Venous blood specimen / Unknown Venipuncture / Unknown 07/30/2024 3:32 PM EST 07/30/2024 3:46 PM EST us Jonny Mathur MD LAB BLOOD ORDERABLES Final Re sult [facility] [address] [place] [address], [place] [phone] * (ABNORMAL) Hepatic Function Panel - STAT (07/30/2024 11:52 AM EST) Total Protein 5.2(L) 6.0 - 8.0 g/dL LAB CHEMISTRY METHOD 07/30/2024 12:56 PM [facility] Albumin 2.4(L) 3.2 - 5.0 g/dL LAB CHEMISTRY METHOD 07/30/2024 12:56 PM [facility] Total Bilirubin 0.4 0.0 - 1.4 mg/dL LAB CHEMISTRY METHOD 07/30/2024 12:56 PM [facility] Bilirubin, Direct 0.2 0.0 - 0.3 mg/dL LAB CHEMISTRY METHOD 07/30/2024 12:56 PM [facility] Bilirubin, Indirect 0.2 0.0 - 1.1 mg/dL LAB CHEMISTRY METHOD 07/30/2024 12:56 PM [facility] ALT (SGPT) 17 10 - 60 unit/L LAB CHEMISTRY METHOD 07/30/2024 12:56 PM [facility] AST (SGOT) 12 10 - 42 unit/L LAB CHEMISTRY METHOD 07/30/2024 12:56 PM [facility] Alkaline Phosphatase 80 42 - 121 unit/L LAB CHEMISTRY METHOD 07/30/2024 12:56 PM [facility] Blood Venous blood specimen / Unknown Venipuncture / Unknown 07/30/2024 11:52 AM EST 07/30/2024 12:28 PM EST us Jonny Mathur MD LAB BLOOD ORDERABLES Final Re sult Performing Organization Address [facility]/ZIP Co de Phone Number [facility] [address] [place] [address], [place] [phone] * (ABNORMAL) POCT Glucose, blood (07/30/2024 11:22 AM EST) Glucose POCT 182(H) 70 - 100 mg/dL 07/30/2024 11:25 AM EST [facility] Blood Capillary blood specimen / Unknown 07/30/2024 11:22 AM EST 07/30/2024 11:25 AM EST us Jonny Mathur MD LAB POINT OF CARE TE ST DOCKED DEVICE UNSOLICITED RESULTS Final Result Performing Organization Address [facility]/ZIP Co de Phone Number [facility] [address] [place] [address], [place] [phone] * (ABNORMAL) POCT Glucose, blood (07/30/2024 7:47 AM EST) Glucose POCT 173(H) 70 - 100 mg/dL 07/30/2024 7:48 AM EST [facility] Blood Capillary blood specimen / Unknown 07/30/2024 7:47 AM EST 07/30/2024 7:49 AM EST us Jonny Mathur MD LAB POINT OF CARE TE ST DOCKED DEVICE UNSOLICITED RESULTS Final Result Performing Organization Address [facility]/ZIP Co de Phone Number [facility] [address] [place] [address], [place] [phone] * (ABNORMAL) CBC - Every 3 Days (07/30/2024 6:10 AM EST) [facility] WBC 8.0 4.8 - 10.8 K/mcL LAB HEMETOLOGY METHOD 07/30/2024 6:55 AM [facility] RBC 2.90(L) 3.80 - 4.80 M/mcL LAB HEMETOLOGY METHOD 07/30/2024 6:55 AM [facility] LAB Hemoglobin 7.2(L) 11.5 - 16.0 g/dL LAB HEMETOLOGY METHOD 07/30/2024 6:55 AM [facility] LAB Hematocrit 23.9(L) 35.0 - 47.0 % LAB HEMETOLOGY METHOD 07/30/2024 6:55 AM [facility] LAB MCV 83.6 79.0 - 98.0 FL LAB HEMETOLOGY METHOD 07/30/2024 6:55 AM [facility] LAB MCH 25.2(L) 27.0 - 32.0 pcg LAB HEMETOLOGY METHOD 07/30/2024 6:55 AM [facility] LAB MCHC 30.1(L) 32.0 - 37.0 g/dL LAB HEMETOLOGY METHOD 07/30/2024 6:55 AM [facility] LAB RDW 22.9(H) 11.0 - 15.0 % LAB HEMETOLOGY METHOD 07/30/2024 6:55 AM [facility] LAB Platelets 176 130 - 400 K/mcL LAB HEMETOLOGY METHOD 07/30/2024 6:55 AM [facility] LAB MPV 10.7 7.0 - 11.0 FL LAB HEMETOLOGY METHOD 07/30/2024 6:55 AM [facility] LAB NRBC 0.0 <1.0 % LAB HEMETOLOGY METHOD 07/30/2024 6:55 AM [facility] LAB NRBC Absolute 0.00 <0.10 K/mcL LAB HEMETOLOGY METHOD 07/30/2024 6:55 AM EST [facility] Blood Venous blood specimen / Unknown Venipuncture / Unknown 07/30/2024 6:10 AM EST 07/30/2024 6:25 AM EST us Lencho Stuart MD LAB BLOOD ORDERABLES Final R esult [facility] [address] [place] [address], [place] [phone] * (ABNORMAL) Heparin and low molecular weight anti Xa level (07/30/2024 6:10 AM EST) Heparin Anti-Xa 1.16(H) 0.30 - 0.70 I Unit/mL LAB COAGULATION METHOD 07/30/2024 6:53 AM EST [facility] Blood Venous blood specimen / Unknown Venipuncture / Unknown 07/30/2024 6:10 AM EST 07/30/2024 6:26 AM EST Narrative [facility] - 07/30/2024 6:53 AM EST Therapeutic range listed is for Unfractionated Heparin. LMW Heparin therapeutic range: 0.50-1.20 IU/mL us Jonny Mathur MD LAB BLOOD ORDERABLES Final Re sult [facility] [address] [place] [address], [place] [phone] * (ABNORMAL) POCT Glucose, blood (07/29/2024 8:11 PM EST) Glucose POCT 321(H) 70 - 100 mg/dL 07/29/2024 8:19 PM EST [facility] Blood Capillary blood specimen / Unknown 07/29/2024 8:11 PM EST 07/29/2024 8:20 PM EST us Jonny Mathur MD LAB POINT OF CARE TE ST DOCKED DEVICE UNSOLICITED RESULTS Final Result Performing Organization Address [facility]/ZIP Co de Phone Number [facility] [address] [place] [address], [place] [phone] * (ABNORMAL) POCT Glucose, blood (07/29/2024 4:19 PM EST) Glucose POCT 267(H) 70 - 100 mg/dL 07/29/2024 4:21 PM EST [facility] Blood Capillary blood specimen / Unknown 07/29/2024 4:19 PM EST 07/29/2024 4:22 PM EST us Jonny Mahtur MD LAB POINT OF CARE TE ST DOCKED DEVICE UNSOLICITED RESULTS Final Result Performing Organization Address [facility]/ZIP Co de Phone Number [facility] [address] [place] [address], [place] [phone] * Hepatitis B surface antigen with reflex to confirmation (07/29/2024 11:51 AM EST) [facility] Hepatitis B Surface Ag Negative Negative LAB CHEMISTRY METHOD 07/29/2024 3:12 PM EST [facility] Blood Venous blood specimen / Unknown Venipuncture / Unknown 07/29/2024 11:51 AM EST 07/29/2024 1:08 PM EST Narrative [facility] - 07/29/2024 3:12 PM EST Over the counter supplements containing high doses of biotin may interfere with this assay. ??If interference is suspected, patients shoud be retested after refraining from biotin supplements for 72 hours. us Jonny Mathur MD LAB BLOOD ORDERABLES Final Re sult Performing Organization Address City/[facility]/ZIP Co de Phone Number [facility] [address] [place] [address], [place] [phone] * (ABNORMAL) POCT Glucose, blood (07/29/2024 11:23 AM EST) [facility] Glucose POCT 108(H) 70 - 100 mg/dL 07/29/2024 11:30 AM EST [facility] Blood Capillary blood specimen / Unknown 07/29/2024 11:23 AM EST 07/29/2024 11:31 AM EST us Jonny Mathur MD LAB POINT OF CARE TE ST DOCKED DEVICE UNSOLICITED RESULTS Final Result Performing Organization Address [facility]/ZIP Co de Phone Number [facility] [address] [place] [address], [place] [phone] * Heparin and low molecular weight anti Xa level (07/29/2024 5:54 AM EST) [facility] Heparin Anti-Xa 0.61 0.30 - 0.70 I Unit/mL LAB COAGULATION METHOD 07/29/2024 6:54 AM EST [facility] Blood Venous blood specimen / Unknown Venipuncture / Unknown 07/29/2024 5:54 AM EST 07/29/2024 6:34 AM EST Narrative [facility] - 07/29/2024 6:54 AM EST Therapeutic range listed is for Unfractionated Heparin. LMW Heparin therapeutic range: 0.50-1.20 IU/mL us Jonyn Mathur MD LAB BLOOD ORDERABLES Final Re sult [facility] [address] [place] [address], [place] [phone] * (ABNORMAL) CBC auto differential (07/29/2024 5:54 AM EST) [facility] WBC 7.3 4.8 - 10.8 K/mcL LAB HEMETOLOGY METHOD 07/29/2024 6:55 AM EST [facility] RBC 2.60(L) 3.80 - 4.80 M/mcL LAB HEMETOLOGY METHOD 07/29/2024 6:55 AM [facility] LAB Hemoglobin 6.7(L) 11.5 - 16.0 g/dL LAB HEMETOLOGY METHOD 07/29/2024 6:55 AM [facility] LAB Hematocrit 21.7(L) 35.0 - 47.0 % LAB HEMETOLOGY METHOD 07/29/2024 6:55 AM [facility] LAB MCV 82.8 79.0 - 98.0 FL LAB HEMETOLOGY METHOD 07/29/2024 6:55 AM [facility] LAB MCH 25.6(L) 27.0 - 32.0 pcg LAB HEMETOLOGY METHOD 07/29/2024 6:55 AM [facility] LAB MCHC 30.9(L) 32.0 - 37.0 g/dL LAB HEMETOLOGY METHOD 07/29/2024 6:55 AM [facility] LAB RDW 23.1(H) 11.0 - 15.0 % LAB HEMETOLOGY METHOD 07/29/2024 6:55 AM [facility] LAB Platelets 146 130 - 400 K/mcL LAB HEMETOLOGY METHOD 07/29/2024 6:55 AM [facility] LAB MPV 10.7 7.0 - 11.0 FL LAB HEMETOLOGY METHOD 07/29/2024 6:55 AM [facility] LAB NRBC 0.0 <1.0 % LAB HEMETOLOGY METHOD 07/29/2024 6:55 AM [facility] LAB NRBC Absolute 0.00 <0.10 K/mcL LAB HEMETOLOGY METHOD 07/29/2024 6:55 AM [facility] Neutrophils Relative 83.4 % LAB HEMETOLOGY METHOD 07/29/2024 6:55 AM [facility] Lymphocytes Relative 8.2 % LAB HEMETOLOGY METHOD 07/29/2024 6:55 AM [facility] Monocytes Relative 6.1 % LAB HEMETOLOGY METHOD 07/29/2024 6:55 AM [facility] Eosinophils Relative 0.3 % LAB HEMETOLOGY METHOD 07/29/2024 6:55 AM [facility] Basophils Relative 0.1 % LAB HEMETOLOGY METHOD 07/29/2024 6:55 AM [facility] Immature Granulocytes Relative 1.9 % LAB HEMETOLOGY METHOD 07/29/2024 6:55 AM [facility] Neutrophils Absolute 6.11 1.50 - 7.00 K/mcL LAB HEMETOLOGY METHOD 07/29/2024 6:55 AM [facility] Lymphocytes Absolute 0.60(L) 1.00 - 5.00 K/mcL LAB HEMETOLOGY METHOD 07/29/2024 6:55 AM [facility] Monocytes Absolute 0.45 0.20 - 1.00 K/mcL LAB HEMETOLOGY METHOD 07/29/2024 6:55 AM [facility] Eosinophils Absolute 0.02 0.00 - 0.50 K/mcL LAB HEMETOLOGY METHOD 07/29/2024 6:55 AM [facility] Basophils Absolute 0.01 0.00 - 0.20 K/mcL LAB HEMETOLOGY METHOD 07/29/2024 6:55 AM [facility] Immature Granulocytes Absolute 0.14(H) 0.00 - 0.03 K/mcL LAB HEMETOLOGY METHOD 07/29/2024 6:55 AM [facility] LAB Blood Venous blood specimen / Unknown Venipuncture / Unknown 07/29/2024 5:54 AM EST 07/29/2024 6:34 AM EST us Jonny Mathur MD LAB BLOOD ORDERABLES Final Re sult [facility] [address] [place] [address], * (ABNORMAL) Basic metabolic panel (07/29/2024 5:54 AM EST) Sodium 131(L) 133 - 145 mmol/L LAB CHEMISTRY METHOD 07/29/2024 7:22 AM EST [facility] Potassium 4.2 3.5 - 5.5 mmol/L LAB CHEMISTRY METHOD 07/29/2024 7:22 AM [facility] Chloride 95(L) 96 - 110 mmol/L LAB CHEMISTRY METHOD 07/29/2024 7:22 AM [facility] CO2 31 21 - 32 mmol/L LAB CHEMISTRY METHOD 07/29/2024 7:22 AM [facility] LAB Anion Gap 5 3 - 11 LAB CHEMISTRY METHOD 07/29/2024 7:22 AM [facility] Glucose 180(H) 70 - 100 mg/dL LAB CHEMISTRY METHOD 07/29/2024 7:22 AM [facility] BUN 49(H) 5 - 25 mg/dL LAB CHEMISTRY METHOD 07/29/2024 7:22 AM [facility] Creatinine 3.73(H) 0.50 - 1.10 mg/dL LAB CHEMISTRY METHOD 07/29/2024 7:22 AM [facility] LAB eGFR 12(L) >=60 mL/min/1. 73m2 LAB CHEMISTRY METHOD 07/29/2024 7:22 AM [facility] LAB Comment:Calculation based on the??Chronic Kidney Disease Epidemiology Collaboration (CKD-EPI) equation refit??without adjustment for race. BUN/Creatinine Ratio 13.1 LAB CHEMISTRY METHOD 07/29/2024 7:22 AM [facility] Calcium 7.8(L) 8.5 - 10.5 mg/dL LAB CHEMISTRY METHOD 07/29/2024 7:22 AM [facility] Blood Venous blood specimen / Unknown Venipuncture / Unknown 07/29/2024 5:54 AM EST 07/29/2024 6:34 AM EST us Jonny Mathur MD LAB BLOOD ORDERABLES Final Re sult Performing Organization Address [facility]/ZIP Co de Phone Number [facility] [address] [place] [address], * Heparin and low molecular weight anti Xa level (07/28/2024 11:42 PM EST) Heparin Anti-Xa 0.65 0.30 - 0.70 I Unit/mL LAB COAGULATION METHOD 07/29/2024 12:10 AM EST [facility] Blood Venous blood specimen / Unknown Venipuncture / Unknown 07/28/2024 11:42 PM EST 07/28/2024 11:52 PM EST Narrative [facility] - 07/29/2024 12:10 AM EST Therapeutic range listed is for Unfractionated Heparin. LMW Heparin therapeutic range: 0.50-1.20 IU/mL us Jonny Mathur MD LAB BLOOD ORDERABLES Final Re sult Performing Organization Address [facility]/ZIP Fl de Phone Number [facility] [address] [place] [address], * (ABNORMAL) Heparin and low molecular weight anti Xa level (07/28/2024 7:46 PM EST) Heparin Anti-Xa 1.05(H) 0.30 - 0.70 I Unit/mL LAB COAGULATION METHOD 07/28/2024 9:19 PM EST [facility] Blood Venous blood specimen / Unknown Venipuncture / Unknown 07/28/2024 7:46 PM EST 07/28/2024 9:09 PM EST Narrative [facility] - 07/28/2024 9:19 PM EST Therapeutic range listed is for Unfractionated Heparin. LMW Heparin therapeutic range: 0.50-1.20 IU/mL us Jonny Mathur MD LAB BLOOD ORDERABLES Final Re sult Performing Organization Address [facility]/ZIP Co de Phone Number [facility] [address] [place] [address], [place] [phone] * (ABNORMAL) POCT Glucose, blood (07/28/2024 7:41 PM EST) Glucose POCT 269(H) 70 - 100 mg/dL 07/28/2024 7:41 PM EST [facility] Blood Capillary blood specimen / Unknown 07/28/2024 7:41 PM EST 07/28/2024 7:43 PM EST us Jonny Mathur MD LAB POINT OF CARE TE ST DOCKED DEVICE UNSOLICITED RESULTS Final Result Performing Organization Address [facility]/ZIP Co de Phone Number [facility] [address] [place] [address], [place] [phone] * (ABNORMAL) POCT Glucose, blood (07/28/2024 4:54 PM EST) Glucose POCT 258(H) 70 - 100 mg/dL 07/28/2024 4:56 PM EST [facility] Blood Capillary blood specimen / Unknown 07/28/2024 4:54 PM EST 07/28/2024 4:57 PM EST us Jonny Mathur MD LAB POINT OF CARE TE ST DOCKED DEVICE UNSOLICITED RESULTS Final Result Performing Organization Address [facility]/ZIP Co de Phone Number [facility] [address] [place] [address], [place] [phone] * Hepatitis B core antibody IgM (07/28/2024 12:19 PM EST) Pathologist [facility] Hep B Core IgM Negative Negative LAB CHEMISTRY METHOD 07/28/2024 3:22 PM EST [facility] Blood Venous blood specimen / Unknown Venipuncture / Unknown 07/28/2024 12:19 PM EST 07/28/2024 12:35 PM EST [facility] LAB - 07/28/2024 3:22 PM EST Over the counter supplements containing high doses of biotin may interfere with this assay. ??If interference is suspected, patients shoud be retested after refraining from biotin supplements for 72 hours. us Miguel Quiles MD LAB BLOOD ORDERABLES Final Res ult Performing Organization Address [facility] Co de Phone Number [facility] [address] [place] [address], [place] [phone] * Hepatitis B surface antibody (07/28/2024 12:19 PM EST) [facility] Hepatitis B Surface Ab Negative Negative LAB CHEMISTRY METHOD 07/28/2024 1:40 PM EST [facility] Hepatitis B Surface Ab Quantitative <3.1 mIU/mL LAB CHEMISTRY METHOD 07/28/2024 1:40 PM EST [facility] Blood Venous blood specimen / Unknown Venipuncture / Unknown 07/28/2024 12:19 PM EST 07/28/2024 12:35 PM EST Narrative [facility] - 07/28/2024 1:40 PM EST >=10 mIU/mL is considered to be consistent with immunity. us Miguel Quiles MD LAB BLOOD ORDERABLES Final Res ult Performing Organization Address [facility]/ZIP Co de Phone Number [facility] [address] [place] [address], [place] [phone] * (ABNORMAL) POCT Glucose, blood (07/28/2024 11:02 AM EST) Glucose POCT 220(H) 70 - 100 mg/dL 07/28/2024 11:04 AM [facility] Blood Capillary blood specimen / Unknown 07/28/2024 11:02 AM EST 07/28/2024 11:05 AM EST Jonny Mathur MD LAB POINT OF CARE TE ST DOCKED DEVICE UNSOLICITED RESULTS Final Result [facility] [address] [place] [address], [place] [phone] * (ABNORMAL) CBC auto differential (07/28/2024 9:51 AM EST) Pathologist [facility] WBC 13.0(H) 4.8 - 10.8 K/mcL LAB HEMETOLOGY METHOD 07/28/2024 12:32 PM [facility] RBC 3.10(L) 3.80 - 4.80 M/mcL LAB HEMETOLOGY METHOD 07/28/2024 12:32 PM [facility] Hemoglobin 8.0(L) 11.5 - 16.0 g/dL LAB HEMETOLOGY METHOD 07/28/2024 12:32 PM [facility] Hematocrit 26.5(L) 35.0 - 47.0 % LAB HEMETOLOGY METHOD 07/28/2024 12:32 PM [facility] MCV 84.9 79.0 - 98.0 FL LAB HEMETOLOGY METHOD 07/28/2024 12:32 PM [facility] LAB MCH 25.6(L) 27.0 - 32.0 pcg LAB HEMETOLOGY METHOD 07/28/2024 12:32 PM [facility] LAB MCHC 30.2(L) 32.0 - 37.0 g/dL LAB HEMETOLOGY METHOD 07/28/2024 12:32 PM [facility] LAB RDW 22.8(H) 11.0 - 15.0 % LAB HEMETOLOGY METHOD 07/28/2024 12:32 PM [facility] LAB Platelets 158 130 - 400 K/mcL LAB HEMETOLOGY METHOD 07/28/2024 12:32 PM [facility] MPV 11.5(H) 7.0 - 11.0 FL LAB HEMETOLOGY METHOD 07/28/2024 12:32 PM [facility] NRBC 0.0 <1.0 % LAB HEMETOLOGY METHOD 07/28/2024 12:32 PM [facility] NRBC Absolute 0.00 <0.10 K/mcL LAB HEMETOLOGY METHOD 07/28/2024 12:32 PM [facility] Neutrophils Relative 86.3 % LAB HEMETOLOGY METHOD 07/28/2024 12:32 PM [facility] Lymphocytes Relative 5.8 % LAB HEMETOLOGY METHOD 07/28/2024 12:32 PM [facility] Monocytes Relative 4.8 % LAB HEMETOLOGY METHOD 07/28/2024 12:32 PM [facility] Eosinophils Relative 1.7 % LAB HEMETOLOGY METHOD 07/28/2024 12:32 PM [facility] Basophils Relative 0.1 % LAB HEMETOLOGY METHOD 07/28/2024 12:32 PM [facility] Immature Granulocytes Relative 1.3 % LAB HEMETOLOGY METHOD 07/28/2024 12:32 PM [facility] Neutrophils Absolute 11.22(H) 1.50 - 7.00 K/mcL LAB HEMETOLOGY METHOD 07/28/2024 12:32 PM [facility] Lymphocytes Absolute 0.76(L) 1.00 - 5.00 K/mcL LAB HEMETOLOGY METHOD 07/28/2024 12:32 PM [facility] Monocytes Absolute 0.63 0.20 - 1.00 K/mcL LAB HEMETOLOGY METHOD 07/28/2024 12:32 PM EST [facility] LAB Eosinophils Absolute 0.22 0.00 - 0.50 K/[facility] LAB HEMETOLOGY METHOD 07/28/2024 12:32 PM EST [facility] Basophils Absolute 0.01 0.00 - 0.20 K/mcL LAB HEMETOLOGY METHOD 07/28/2024 12:32 PM EST [facility] Immature Granulocytes Absolute 0.17(H) 0.00 - 0.03 K/[facility] LAB HEMETOLOGY METHOD 07/28/2024 12:32 PM [facility] Blood Venous blood specimen / Unknown Venipuncture / Unknown 07/28/2024 9:51 AM EST 07/28/2024 12:19 PM EST Jonny Mathur MD LAB BLOOD ORDERABLES Final Re sult [facility] [address] [place] [address], [place] [phone] * (ABNORMAL) Basic metabolic panel (07/28/2024 9:51 AM EST) Sodium 134 133 - 145 mmol/L LAB CHEMISTRY METHOD 07/28/2024 1:16 PM [facility] Potassium 4.0 3.5 - 5.5 mmol/L LAB CHEMISTRY METHOD 07/28/2024 1:16 PM [facility] Chloride 95(L) 96 - 110 mmol/L LAB CHEMISTRY METHOD 07/28/2024 1:16 PM [facility] CO2 29 21 - 32 mmol/L LAB CHEMISTRY METHOD 07/28/2024 1:16 PM [facility] Anion Gap 10 3 - 11 LAB CHEMISTRY METHOD 07/28/2024 1:16 PM [facility] Glucose 230(H) 70 - 100 mg/dL LAB CHEMISTRY METHOD 07/28/2024 1:16 PM EST [facility] BUN 32(H) 5 - 25 mg/dL LAB CHEMISTRY METHOD 07/28/2024 1:16 PM [facility] Creatinine 2.82(H) 0.50 - 1.10 mg/dL LAB CHEMISTRY METHOD 07/28/2024 1:16 PM [facility] LAB eGFR 16(L) >=60 mL/min/1. 73m2 LAB CHEMISTRY METHOD 07/28/2024 1:16 PM [facility] LAB Comment:Calculation based on the??Chronic Kidney Disease Epidemiology Collaboration (CKD-EPI) equation refit??without adjustment for race. BUN/Creatinine Ratio 11.3 LAB CHEMISTRY METHOD 07/28/2024 1:16 PM [facility] Calcium 7.9(L) 8.5 - 10.5 mg/dL LAB CHEMISTRY METHOD 07/28/2024 1:16 PM [facility] Blood Venous blood specimen / Unknown Venipuncture / Unknown 07/28/2024 9:51 AM EST 07/28/2024 12:18 PM EST us Jonny Mathur MD LAB BLOOD ORDERABLES Final Re sult [facility] [address] [place] [address], * (ABNORMAL) Heparin and low molecular weight anti Xa level (07/28/2024 9:51 AM EST) Heparin Anti-Xa 0.16(L) 0.30 - 0.70 I Unit/mL LAB COAGULATION METHOD 07/28/2024 12:37 PM [facility] Blood Venous blood specimen / Unknown Venipuncture / Unknown 07/28/2024 9:51 AM EST 07/28/2024 12:19 PM EST [facility] LAB - 07/28/2024 12:37 PM EST Therapeutic range listed is for Unfractionated Heparin. LMW Heparin therapeutic range: 0.50-1.20 IU/mL us Jonny Mathur MD LAB BLOOD ORDERABLES Final Re sult Performing Organization Address [facility]/ZIP Co de Phone Number [facility] [address] [place] [address], [place] [phone] * (ABNORMAL) POCT Glucose, blood (07/28/2024 9:29 AM EST) Glucose POCT 214(H) 70 - 100 mg/dL 07/28/2024 10:23 AM EST [facility] Blood Capillary blood specimen / Unknown 07/28/2024 9:29 AM EST 07/28/2024 10:24 AM EST us Jonny Mathur MD LAB POINT OF CARE TE ST DOCKED DEVICE UNSOLICITED RESULTS Final Result Performing Organization Address [facility]/ZIP Co de Phone Number [facility] [address] [place] [address], [place] [phone] * Heparin and low molecular weight anti Xa level (07/28/2024 2:09 AM EST) [facility] Heparin Anti-Xa 0.39 0.30 - 0.70 I Unit/mL LAB COAGULATION METHOD 07/28/2024 2:28 AM EST [facility] Blood Venous blood specimen / Unknown Venipuncture / Unknown 07/28/2024 2:09 AM EST 07/28/2024 2:16 AM EST Narrative [facility] - 07/28/2024 2:28 AM EST Therapeutic range listed is for Unfractionated Heparin. LMW Heparin therapeutic range: 0.50-1.20 IU/mL us Jonny Mathur MD LAB BLOOD ORDERABLES Final Re sult Performing Organization Address City/[facility]/ZIP Co de Phone Number [facility] [address] [place] [address], [place] [phone] * (ABNORMAL) Heparin and low molecular weight anti Xa level (07/27/2024 11:55 PM EST) Heparin Anti-Xa 0.22(L) 0.30 - 0.70 I Unit/mL LAB COAGULATION METHOD 07/28/2024 12:28 AM EST [facility] Blood Venous blood specimen / Unknown Venipuncture / Unknown 07/27/2024 11:55 PM EST 07/28/2024 12:20 AM EST Narrative [facility] - 07/28/2024 12:28 AM EST Therapeutic range listed is for Unfractionated Heparin. LMW Heparin therapeutic range: 0.50-1.20 IU/mL us Jonny Mathur MD LAB BLOOD ORDERABLES Final Re sult Performing Organization Address [facility]/ZIP Co de Phone Number [facility] [address] [place] [address], [place] [phone] * (ABNORMAL) Heparin and low molecular weight anti Xa level (07/27/2024 9:31 PM EST) Heparin Anti-Xa 1.11(H) 0.30 - 0.70 I Unit/mL LAB COAGULATION METHOD 07/27/2024 9:51 PM EST [facility] Blood Venous blood specimen / Unknown Venipuncture / Unknown 07/27/2024 9:31 PM EST 07/27/2024 9:37 PM EST Narrative [facility] - 07/27/2024 9:51 PM EST Therapeutic range listed is for Unfractionated Heparin. LMW Heparin therapeutic range: 0.50-1.20 IU/mL us Jonny Mathur MD LAB BLOOD ORDERABLES Final Re sult [facility] [address] [place] [address], [place] [phone] * (ABNORMAL) POCT Glucose, blood (07/27/2024 8:12 PM EST) Glucose POCT 249(H) 70 - 100 mg/dL 07/27/2024 8:13 PM EST [facility] Blood Capillary blood specimen / Unknown 07/27/2024 8:12 PM EST 07/27/2024 8:14 PM EST Jonny Mathur MD LAB POINT OF CARE TE ST DOCKED DEVICE UNSOLICITED RESULTS Final Result [facility] [address] [place] [address], [place] [phone] * (ABNORMAL) POCT Glucose, blood (07/27/2024 4:34 PM EST) [facility] Glucose POCT 213(H) 70 - 100 mg/dL 07/27/2024 4:40 PM EST [facility] Blood Capillary blood specimen / Unknown 07/27/2024 4:34 PM EST 07/27/2024 4:41 PM EST Jonny Mathur MD LAB POINT OF CARE TE ST DOCKED DEVICE UNSOLICITED RESULTS Final Result [facility] [facility] [address] [place] [address], [place] [phone] * (ABNORMAL) Complete blood count (07/27/2024 3:25 PM EST) WBC 17.5(H) 4.8 - 10.8 K/[facility] LAB HEMETOLOGY METHOD 07/27/2024 3:46 PM EST [facility] RBC 3.30(L) 3.80 - 4.80 M/[facility] LAB HEMETOLOGY METHOD 07/27/2024 3:46 PM [facility] Hemoglobin 8.3(L) 11.5 - 16.0 g/dL LAB HEMETOLOGY METHOD 07/27/2024 3:46 PM [facility] Hematocrit 27.7(L) 35.0 - 47.0 % LAB HEMETOLOGY METHOD 07/27/2024 3:46 PM [facility] MCV 83.7 79.0 - 98.0 FL LAB HEMETOLOGY METHOD 07/27/2024 3:46 PM [facility] LAB MCH 25.1(L) 27.0 - 32.0 pcg LAB HEMETOLOGY METHOD 07/27/2024 3:46 PM [facility] MCHC 30.0(L) 32.0 - 37.0 g/dL LAB HEMETOLOGY METHOD 07/27/2024 3:46 PM [facility] RDW 22.5(H) 11.0 - 15.0 % LAB HEMETOLOGY METHOD 07/27/2024 3:46 PM [facility] Platelets 147 130 - 400 K/mcL LAB HEMETOLOGY METHOD 07/27/2024 3:46 PM [facility] MPV 10.8 7.0 - 11.0 FL LAB HEMETOLOGY METHOD 07/27/2024 3:46 PM [facility] NRBC 0.0 <1.0 % LAB HEMETOLOGY METHOD 07/27/2024 3:46 PM [facility] LAB NRBC Absolute 0.00 <0.10 K/mcL LAB HEMETOLOGY METHOD 07/27/2024 3:46 PM [facility] Blood Venous blood specimen / Unknown Venipuncture / Unknown 07/27/2024 3:25 PM EST 07/27/2024 3:29 PM EST us Jonny Mathur MD LAB BLOOD ORDERABLES Final Re sult Performing Organization Address City/State/[facility] Co de Phone Number [facility] [address] [place] [address], [place] [phone] * (ABNORMAL) Heparin and low molecular weight anti Xa level (07/27/2024 1:42 PM EST) [facility] Heparin Anti-Xa <0.04(L) 0.30 - 0.70 I Unit/mL LAB COAGULATION METHOD 07/27/2024 2:08 PM EST [facility] Blood Venous blood specimen / Unknown Venipuncture / Unknown 07/27/2024 1:42 PM EST 07/27/2024 1:52 PM EST Narrative [facility] - 07/27/2024 2:08 PM EST Therapeutic range listed is for Unfractionated Heparin. LMW Heparin therapeutic range: 0.50-1.20 IU/mL Jonny Mathur MD LAB BLOOD ORDERABLES Final Re sult Performing Organization Address [facility]/ZIP Co de Phone Number [facility] [address] [place] [address], [place] [phone] * (ABNORMAL) Basic metabolic panel (07/27/2024 1:42 PM EST) [facility] Sodium 131(L) 133 - 145 mmol/L LAB CHEMISTRY METHOD 07/27/2024 2:30 PM EST [facility] Potassium 3.8 3.5 - 5.5 mmol/L LAB CHEMISTRY METHOD 07/27/2024 2:30 PM EST [facility] Chloride 97 96 - 110 mmol/L LAB CHEMISTRY METHOD 07/27/2024 2:30 PM EST [facility] CO2 28 21 - 32 mmol/L LAB CHEMISTRY METHOD 07/27/2024 2:30 PM [facility] Anion Gap 6 3 - 11 LAB CHEMISTRY METHOD 07/27/2024 2:30 PM [facility] Glucose 150(H) 70 - 100 mg/dL LAB CHEMISTRY METHOD 07/27/2024 2:30 PM EST [facility] BUN 17 5 - 25 mg/dL LAB CHEMISTRY METHOD 07/27/2024 2:30 PM EST [facility] Creatinine 1.53(H) 0.50 - 1.10 mg/dL LAB CHEMISTRY METHOD 07/27/2024 2:30 PM EST [facility] eGFR 34(L) >=60 mL/min/1. 73m2 LAB CHEMISTRY METHOD 07/27/2024 2:30 PM EST [facility] Comment:Calculation based on the??Chronic Kidney Disease Epidemiology Collaboration (CKD-EPI) equation refit??without adjustment for race. BUN/Creatinine Ratio 11.1 LAB CHEMISTRY METHOD 07/27/2024 2:30 PM EST [facility] Calcium 7.9(L) 8.5 - 10.5 mg/dL LAB CHEMISTRY METHOD 07/27/2024 2:30 PM EST [facility] Blood Venous blood specimen / Unknown Venipuncture / Unknown 07/27/2024 1:42 PM EST 07/27/2024 1:52 PM EST us Jonny Mathur MD LAB BLOOD ORDERABLES Final Re sult Performing Organization Address [facility] de Phone Number [facility] [address] [place] [address], * (ABNORMAL) POCT Glucose, blood (07/27/2024 11:54 AM EST) Glucose POCT 126(H) 70 - 100 mg/dL 07/27/2024 11:57 AM EST [facility] Blood Capillary blood specimen / Unknown 07/27/2024 11:54 AM EST 07/27/2024 11:58 AM EST us Jonny Mathur MD LAB POINT OF CARE TE ST DOCKED DEVICE UNSOLICITED RESULTS Final Result [facility] [address] [place] [address], * (ABNORMAL) CBC auto differential (07/27/2024 6:27 AM EST) [facility] Signature WBC 12.4(H) 4.8 - 10.8 K/mcL LAB HEMETOLOGY METHOD 07/27/2024 7:55 AM [facility] RBC 3.10(L) 3.80 - 4.80 M/mcL LAB HEMETOLOGY METHOD 07/27/2024 7:55 AM [facility] Hemoglobin 7.7(L) 11.5 - 16.0 g/dL LAB HEMETOLOGY METHOD 07/27/2024 7:55 AM [facility] Hematocrit 25.5(L) 35.0 - 47.0 % LAB HEMETOLOGY METHOD 07/27/2024 7:55 AM EST [facility] MCV 83.3 79.0 - 98.0 FL LAB HEMETOLOGY METHOD 07/27/2024 7:55 AM [facility] MCH 25.2(L) 27.0 - 32.0 pcg LAB HEMETOLOGY METHOD 07/27/2024 7:55 AM [facility] MCHC 30.2(L) 32.0 - 37.0 g/dL LAB HEMETOLOGY METHOD 07/27/2024 7:55 AM EST [facility] RDW 22.4(H) 11.0 - 15.0 % LAB HEMETOLOGY METHOD 07/27/2024 7:55 AM [facility] Platelets 143 130 - 400 K/mcL LAB HEMETOLOGY METHOD 07/27/2024 7:55 AM [facility] MPV 11.2(H) 7.0 - 11.0 FL LAB HEMETOLOGY METHOD 07/27/2024 7:55 AM [facility] NRBC 0.0 <1.0 % LAB HEMETOLOGY METHOD 07/27/2024 7:55 AM [facility] NRBC Absolute 0.00 <0.10 K/mcL LAB HEMETOLOGY METHOD 07/27/2024 7:55 AM [facility] Neutrophils Relative 82.8 % LAB HEMETOLOGY METHOD 07/27/2024 7:55 AM [facility] Lymphocytes Relative 10.0 % LAB HEMETOLOGY METHOD 07/27/2024 7:55 AM [facility] Monocytes Relative 4.8 % LAB HEMETOLOGY METHOD 07/27/2024 7:55 AM [facility] Eosinophils Relative 0.8 % LAB HEMETOLOGY METHOD 07/27/2024 7:55 AM [facility] Basophils Relative 0.1 % LAB HEMETOLOGY METHOD 07/27/2024 7:55 AM [facility] Immature Granulocytes Relative 1.5 % LAB HEMETOLOGY METHOD 07/27/2024 7:55 AM [facility] Neutrophils Absolute 10.27(H) 1.50 - 7.00 K/mcL LAB HEMETOLOGY METHOD 07/27/2024 7:55 AM [facility] Lymphocytes Absolute 1.24 1.00 - 5.00 K/mcL LAB HEMETOLOGY METHOD 07/27/2024 7:55 AM [facility] Monocytes Absolute 0.59 0.20 - 1.00 K/mcL LAB HEMETOLOGY METHOD 07/27/2024 7:55 AM [facility] Eosinophils Absolute 0.10 0.00 - 0.50 K/mcL LAB HEMETOLOGY METHOD 07/27/2024 7:55 AM [facility] Basophils Absolute 0.01 0.00 - 0.20 K/mcL LAB HEMETOLOGY METHOD 07/27/2024 7:55 AM EST [facility] Immature Granulocytes Absolute 0.19(H) 0.00 - 0.03 K/mcL LAB HEMETOLOGY METHOD 07/27/2024 7:55 AM EST [facility] Blood Venous blood specimen / Unknown Venipuncture / Unknown 07/27/2024 6:27 AM EST 07/27/2024 7:41 AM EST Jonny Mathur MD LAB BLOOD ORDERABLES Final Re sult [facility] [address] [place] [address], [place] [phone] * (ABNORMAL) Heparin and low molecular weight anti Xa level (07/27/2024 6:27 AM EST) Heparin Anti-Xa 0.74(H) 0.30 - 0.70 I Unit/mL LAB COAGULATION METHOD 07/27/2024 8:11 AM EST [facility] Blood Venous blood specimen / Unknown Venipuncture / Unknown 07/27/2024 6:27 AM EST 07/27/2024 7:41 AM EST Narrative [facility] - 07/27/2024 8:11 AM EST Therapeutic range listed is for Unfractionated Heparin. LMW Heparin therapeutic range: 0.50-1.20 IU/mL us Jonny Mathur MD LAB BLOOD ORDERABLES Final Re sult [facility] [address] [place] [address], [place] [phone] * (ABNORMAL) CBC - Every 3 Days (07/27/2024 6:27 AM EST) WBC 12.4(H) 4.8 - 10.8 K/mcL LAB HEMETOLOGY METHOD 07/27/2024 7:55 AM EST [facility] RBC 3.10(L) 3.80 - 4.80 M/mcL LAB HEMETOLOGY METHOD 07/27/2024 7:55 AM [facility] Hemoglobin 7.7(L) 11.5 - 16.0 g/dL LAB HEMETOLOGY METHOD 07/27/2024 7:55 AM [facility] Hematocrit 25.5(L) 35.0 - 47.0 % LAB HEMETOLOGY METHOD 07/27/2024 7:55 AM [facility] LAB MCV 83.3 79.0 - 98.0 FL LAB HEMETOLOGY METHOD 07/27/2024 7:55 AM [facility] LAB MCH 25.2(L) 27.0 - 32.0 pcg LAB HEMETOLOGY METHOD 07/27/2024 7:55 AM [facility] LAB MCHC 30.2(L) 32.0 - 37.0 g/dL LAB HEMETOLOGY METHOD 07/27/2024 7:55 AM [facility] RDW 22.4(H) 11.0 - 15.0 % LAB HEMETOLOGY METHOD 07/27/2024 7:55 AM [facility] Platelets 143 130 - 400 K/mcL LAB HEMETOLOGY METHOD 07/27/2024 7:55 AM [facility] MPV 11.2(H) 7.0 - 11.0 FL LAB HEMETOLOGY METHOD 07/27/2024 7:55 AM [facility] NRBC 0.0 <1.0 % LAB HEMETOLOGY METHOD 07/27/2024 7:55 AM [facility] NRBC Absolute 0.00 <0.10 K/mcL LAB HEMETOLOGY METHOD 07/27/2024 7:55 AM [facility] Blood Venous blood specimen / Unknown Venipuncture / Unknown 07/27/2024 6:27 AM EST 07/27/2024 7:41 AM EST us Lencho Stuart MD LAB BLOOD ORDERABLES Final R esult [facility] [address] [place] [address], [place] [phone] * (ABNORMAL) Basic metabolic panel (07/27/2024 6:27 AM EST) Sodium 130(L) 133 - 145 mmol/L LAB CHEMISTRY METHOD 07/27/2024 8:43 AM EST [facility] Potassium 4.2 3.5 - 5.5 mmol/L LAB CHEMISTRY METHOD 07/27/2024 8:43 AM [facility] Chloride 93(L) 96 - 110 mmol/L LAB CHEMISTRY METHOD 07/27/2024 8:43 AM [facility] CO2 30 21 - 32 mmol/L LAB CHEMISTRY METHOD 07/27/2024 8:43 AM [facility] Anion Gap 7 3 - 11 LAB CHEMISTRY METHOD 07/27/2024 8:43 AM [facility] Glucose 182(H) 70 - 100 mg/dL LAB CHEMISTRY METHOD 07/27/2024 8:43 AM [facility] BUN 62(H) 5 - 25 mg/dL LAB CHEMISTRY METHOD 07/27/2024 8:43 AM [facility] Creatinine 3.88(H) 0.50 - 1.10 mg/dL LAB CHEMISTRY METHOD 07/27/2024 8:43 AM [facility] LAB eGFR 11(L) >=60 mL/min/1. 73m2 LAB CHEMISTRY METHOD 07/27/2024 8:43 AM [facility] Comment:Calculation based on the??Chronic Kidney Disease Epidemiology Collaboration (CKD-EPI) equation refit??without adjustment for race. BUN/Creatinine Ratio 16.0 LAB CHEMISTRY METHOD 07/27/2024 8:43 AM [facility] Calcium 8.2(L) 8.5 - 10.5 mg/dL LAB CHEMISTRY METHOD 07/27/2024 8:43 AM EST [facility] Blood Venous blood specimen / Unknown Venipuncture / Unknown 07/27/2024 6:27 AM EST 07/27/2024 7:41 AM EST us Jonny Mathur MD LAB BLOOD ORDERABLES Final Re sult Performing Organization Address [facility]/ZIP Co de Phone Number [facility] [address] [place] [address], [place] [phone] * (ABNORMAL) POCT Glucose, blood (07/26/2024 8:23 PM EST) Glucose POCT 189(H) 70 - 100 mg/dL 07/26/2024 8:24 PM EST [facility] Blood Capillary blood specimen / Unknown 07/26/2024 8:23 PM EST 07/26/2024 8:25 PM EST us Jonny Mathur MD LAB POINT OF CARE TE ST DOCKED DEVICE UNSOLICITED RESULTS Final Result Performing Organization Address [facility]/ZIP Co de Phone Number [facility] [address] [place] [address], [place] [phone] * (ABNORMAL) POCT Glucose, blood (07/26/2024 4:28 PM EST) Glucose POCT 192(H) 70 - 100 mg/dL 07/26/2024 4:29 PM EST [facility] Blood Capillary blood specimen / Unknown 07/26/2024 4:28 PM EST 07/26/2024 4:30 PM EST us Jonny Mathur MD LAB POINT OF CARE TE ST DOCKED DEVICE UNSOLICITED RESULTS Final Result Performing Organization Address City/[facility]/ZIP Co de Phone Number [facility] [address] [place] [address], [place] [phone] * (ABNORMAL) POCT Glucose, blood (07/26/2024 11:15 AM EST) [facility] Glucose POCT 180(H) 70 - 100 mg/dL 07/26/2024 11:17 AM EST [facility] Blood Capillary blood specimen / Unknown 07/26/2024 11:15 AM EST 07/26/2024 11:18 AM EST us Jonny Mathur MD LAB POINT OF CARE TE ST DOCKED DEVICE UNSOLICITED RESULTS Final Result [facility] [address] [place] [address], [place] [phone] * (ABNORMAL) POCT Glucose, blood (07/26/2024 8:08 AM EST) [facility] Glucose POCT 128(H) 70 - 100 mg/dL 07/26/2024 8:09 AM EST [facility] Blood Capillary blood specimen / Unknown 07/26/2024 8:08 AM EST 07/26/2024 8:10 AM EST us Jonny Mathur MD LAB POINT OF CARE TE ST DOCKED DEVICE UNSOLICITED RESULTS Final Result [facility] [address] [place] [address], [place] [phone] * Heparin and low molecular weight anti Xa level (07/26/2024 6:06 AM EST) [facility] Heparin Anti-Xa 0.65 0.30 - 0.70 I Unit/mL LAB COAGULATION METHOD 07/26/2024 7:08 AM EST [facility] Blood Venous blood specimen / Unknown Venipuncture / Unknown 07/26/2024 6:06 AM EST 07/26/2024 6:19 AM EST Narrative [facility] - 07/26/2024 7:08 AM EST Therapeutic range listed is for Unfractionated Heparin. LMW Heparin therapeutic range: 0.50-1.20 IU/mL us Jonny Mathur MD LAB BLOOD ORDERABLES Final Re sult Performing Organization Address City/[facility]/ZIP Co de Phone Number [facility] [address] [place] [address], [place] [phone] * (ABNORMAL) POCT Glucose, blood (07/25/2024 9:22 PM EST) Glucose POCT 183(H) 70 - 100 mg/dL 07/25/2024 9:22 PM EST [facility] Blood Capillary blood specimen / Unknown 07/25/2024 9:22 PM EST 07/25/2024 9:23 PM EST us Jonny Mathur MD LAB POINT OF CARE TE ST DOCKED DEVICE UNSOLICITED RESULTS Final Result Performing Organization Address [facility]/ZIP Co de Phone Number [facility] [address] [place] [address], [place] [phone] * (ABNORMAL) POCT Glucose, blood (07/25/2024 4:02 PM EST) Glucose POCT 194(H) 70 - 100 mg/dL 07/25/2024 4:02 PM EST [facility] Blood Capillary blood specimen / Unknown 07/25/2024 4:02 PM EST 07/25/2024 4:03 PM EST us Jonny Mathur MD LAB POINT OF CARE TE ST DOCKED DEVICE UNSOLICITED RESULTS Final Result Performing Organization Address City/[facility]/ZIP Co de Phone Number [facility] [address] [place] [address], [place] [phone] * (ABNORMAL) POCT Glucose, blood (07/25/2024 2:56 PM EST) Pathologist [facility] Glucose POCT 143(H) 70 - 100 mg/dL 07/25/2024 2:56 PM EST [facility] Blood Capillary blood specimen / Unknown 07/25/2024 2:56 PM EST 07/25/2024 2:58 PM EST Jonny Mathur MD LAB POINT OF CARE TE ST DOCKED DEVICE UNSOLICITED RESULTS Final Result [facility] [address] [place] [address], [place] [phone] * (ABNORMAL) POCT Glucose, blood (07/25/2024 8:18 AM EST) [facility] Glucose POCT 212(H) 70 - 100 mg/dL 07/25/2024 8:19 AM EST [facility] Blood Capillary blood specimen / Unknown 07/25/2024 8:18 AM EST 07/25/2024 8:20 AM EST Jonny Mathur MD LAB POINT OF CARE TE ST DOCKED DEVICE UNSOLICITED RESULTS Final Result [facility] [address] [place] [address], [place] [phone] * (ABNORMAL) CBC auto differential (07/25/2024 5:35 AM EST) WBC 14.2(H) 4.8 - 10.8 K/[facility] LAB HEMETOLOGY METHOD 07/25/2024 7:21 AM EST [facility] RBC 3.10(L) 3.80 - 4.80 M/mcL LAB HEMETOLOGY METHOD 07/25/2024 7:21 AM EST [facility] Hemoglobin 8.0(L) 11.5 - 16.0 g/dL LAB HEMETOLOGY METHOD 07/25/2024 7:21 AM [facility] Hematocrit 25.7(L) 35.0 - 47.0 % LAB HEMETOLOGY METHOD 07/25/2024 7:21 AM [facility] MCV 82.1 79.0 - 98.0 FL LAB HEMETOLOGY METHOD 07/25/2024 7:21 AM [facility] MCH 25.6(L) 27.0 - 32.0 pcg LAB HEMETOLOGY METHOD 07/25/2024 7:21 AM [facility] MCHC 31.1(L) 32.0 - 37.0 g/dL LAB HEMETOLOGY METHOD 07/25/2024 7:21 AM [facility] RDW 21.7(H) 11.0 - 15.0 % LAB HEMETOLOGY METHOD 07/25/2024 7:21 AM [facility] Platelets 158 130 - 400 K/mcL LAB HEMETOLOGY METHOD 07/25/2024 7:21 AM [facility] MPV 10.6 7.0 - 11.0 FL LAB HEMETOLOGY METHOD 07/25/2024 7:21 AM [facility] NRBC 0.0 <1.0 % LAB HEMETOLOGY METHOD 07/25/2024 7:21 AM [facility] NRBC Absolute 0.00 <0.10 K/mcL LAB HEMETOLOGY METHOD 07/25/2024 7:21 AM [facility] Neutrophils Relative 83.3 % LAB HEMETOLOGY METHOD 07/25/2024 7:21 AM [facility] Lymphocytes Relative 8.9 % LAB HEMETOLOGY METHOD 07/25/2024 7:21 AM [facility] Monocytes Relative 6.3 % LAB HEMETOLOGY METHOD 07/25/2024 7:21 AM [facility] Eosinophils Relative 0.6 % LAB HEMETOLOGY METHOD 07/25/2024 7:21 AM [facility] Basophils Relative 0.1 % LAB HEMETOLOGY METHOD 07/25/2024 7:21 AM [facility] Immature Granulocytes Relative 0.8 % LAB HEMETOLOGY METHOD 07/25/2024 7:21 AM [facility] Neutrophils Absolute 11.87(H) 1.50 - 7.00 K/mcL LAB HEMETOLOGY METHOD 07/25/2024 7:21 AM [facility] Lymphocytes Absolute 1.26 1.00 - 5.00 K/mcL LAB HEMETOLOGY METHOD 07/25/2024 7:21 AM [facility] Monocytes Absolute 0.89 0.20 - 1.00 K/mcL LAB HEMETOLOGY METHOD 07/25/2024 7:21 AM EST [facility] Eosinophils Absolute 0.08 0.00 - 0.50 K/mcL LAB HEMETOLOGY METHOD 07/25/2024 7:21 AM [facility] Basophils Absolute 0.01 0.00 - 0.20 K/mcL LAB HEMETOLOGY METHOD 07/25/2024 7:21 AM [facility] Immature Granulocytes Absolute 0.11(H) 0.00 - 0.03 K/mcL LAB HEMETOLOGY METHOD 07/25/2024 7:21 AM [facility] Blood Venous blood specimen / Unknown Venipuncture / Unknown 07/25/2024 5:35 AM EST 07/25/2024 6:48 AM EST [facility] LAB BLOOD ORDERABLES Final R esult [facility] [address] [place] [address], * Heparin and low molecular weight anti Xa level (07/25/2024 5:35 AM EST) Heparin Anti-Xa 0.61 0.30 - 0.70 I Unit/mL LAB COAGULATION METHOD 07/25/2024 7:17 AM EST [facility] Blood Venous blood specimen / Unknown Venipuncture / Unknown 07/25/2024 5:35 AM EST 07/25/2024 6:48 AM EST [facility] LAB - 07/25/2024 7:17 AM EST Therapeutic range listed is for Unfractionated Heparin. LMW Heparin therapeutic range: 0.50-1.20 IU/mL [facility] LAB BLOOD ORDERABLES Final R esult [facility] [address] [place] [address], [place] [phone] * (ABNORMAL) Basic metabolic panel (07/25/2024 5:35 AM EST) [facility] Sodium 132(L) 133 - 145 mmol/L LAB CHEMISTRY METHOD 07/25/2024 7:57 AM [facility] Potassium 4.2 3.5 - 5.5 mmol/L LAB CHEMISTRY METHOD 07/25/2024 7:57 AM [facility] Chloride 94(L) 96 - 110 mmol/L LAB CHEMISTRY METHOD 07/25/2024 7:57 AM [facility] CO2 30 21 - 32 mmol/L LAB CHEMISTRY METHOD 07/25/2024 7:57 AM [facility] Anion Gap 8 3 - 11 LAB CHEMISTRY METHOD 07/25/2024 7:57 AM [facility] Glucose 194(H) 70 - 100 mg/dL LAB CHEMISTRY METHOD 07/25/2024 7:57 AM [facility] BUN 77(H) 5 - 25 mg/dL LAB CHEMISTRY METHOD 07/25/2024 7:57 AM [facility] Creatinine 3.91(H) 0.50 - 1.10 mg/dL LAB CHEMISTRY METHOD 07/25/2024 7:57 AM [facility] eGFR 11(L) >=60 mL/min/1. 73m2 LAB CHEMISTRY METHOD 07/25/2024 7:57 AM [facility] Comment:Calculation based on the??Chronic Kidney Disease Epidemiology Collaboration (CKD-EPI) equation refit??without adjustment for race. BUN/Creatinine Ratio 19.7 LAB CHEMISTRY METHOD 07/25/2024 7:57 AM [facility] Calcium 8.2(L) 8.5 - 10.5 mg/dL LAB CHEMISTRY METHOD 07/25/2024 7:57 AM [facility] Blood Venous blood specimen / Unknown Venipuncture / Unknown 07/25/2024 5:35 AM EST 07/25/2024 6:48 AM EST us Lencho Stuart MD LAB BLOOD ORDERABLES Final R esult [facility] [address] [place] [address], [place] [phone] * (ABNORMAL) POCT Glucose, blood (07/24/2024 7:58 PM EST) Glucose POCT 228(H) 70 - 100 mg/dL 07/24/2024 7:58 PM EST [facility] Blood Capillary blood specimen / Unknown 07/24/2024 7:58 PM EST 07/24/2024 8:00 PM EST us Lencho Stuart MD LAB POINT OF CARE TE ST DOCKED DEVICE UNSOLICITED RESULTS Final Result Performing Organization Address City/[facility]/ZIP Co de Phone Number [facility] [address] [place] [address], [place] [phone] * (ABNORMAL) POCT Glucose, blood (07/24/2024 3:24 PM EST) Glucose POCT 239(H) 70 - 100 mg/dL 07/24/2024 3:25 PM EST [facility] POCT Comment RN Notified 07/24/2024 3:25 PM EST [facility] Blood Capillary blood specimen / Unknown 07/24/2024 3:24 PM EST 07/24/2024 3:26 PM EST us Lencho Stuart MD LAB POINT OF CARE TE ST DOCKED DEVICE UNSOLICITED RESULTS Final Result Performing Organization Address City/[facility]/ZIP Co de Phone Number [facility] [address] [place] [address], [place] [phone] * (ABNORMAL) POCT Glucose, blood (07/24/2024 11:39 AM EST) Glucose POCT 260(H) 70 - 100 mg/dL 07/24/2024 11:40 AM EST [facility] POCT Comment RN Notified 07/24/2024 11:40 AM EST [facility] Blood Capillary blood specimen / Unknown 07/24/2024 11:39 AM EST 07/24/2024 11:41 AM EST us Lencho Stuart MD LAB POINT OF CARE TE ST DOCKED DEVICE UNSOLICITED RESULTS Final Result [facility] [address] [place] [address], [place] [phone] * (ABNORMAL) POCT Glucose, blood (07/24/2024 7:32 AM EST) Glucose POCT 301(H) 70 - 100 mg/dL 07/24/2024 7:33 AM EST [facility] POCT Comment RN Notified 07/24/2024 7:33 AM EST [facility] Blood Capillary blood specimen / Unknown 07/24/2024 7:32 AM EST 07/24/2024 7:34 AM EST Lencho Stuart MD LAB POINT OF CARE TE ST DOCKED DEVICE UNSOLICITED RESULTS Final Result Performing Organization Address [facility]/ZIP Co de Phone Number [facility] [address] [place] [address], * Heparin and low molecular weight anti Xa level (07/24/2024 6:48 AM EST) Heparin Anti-Xa 0.60 0.30 - 0.70 I Unit/mL LAB COAGULATION METHOD 07/24/2024 7:29 AM EST [facility] Blood Venous blood specimen / Unknown Venipuncture / Unknown 07/24/2024 6:48 AM EST 07/24/2024 7:03 AM EST Narrative [facility] - 07/24/2024 7:29 AM EST Therapeutic range listed is for Unfractionated Heparin. LMW Heparin therapeutic range: 0.50-1.20 IU/mL Lencho Stuart MD LAB BLOOD ORDERABLES Final R esult [facility] [address] [place] [address], [place] [phone] * (ABNORMAL) CBC auto differential (07/24/2024 6:48 AM EST) WBC 13.1(H) 4.8 - 10.8 K/mcL LAB HEMETOLOGY METHOD 07/24/2024 7:30 AM EST [facility] RBC 3.10(L) 3.80 - 4.80 M/mcL LAB HEMETOLOGY METHOD 07/24/2024 7:30 AM [facility] Hemoglobin 7.7(L) 11.5 - 16.0 g/dL LAB HEMETOLOGY METHOD 07/24/2024 7:30 AM [facility] Hematocrit 25.3(L) 35.0 - 47.0 % LAB HEMETOLOGY METHOD 07/24/2024 7:30 AM [facility] MCV 81.4 79.0 - 98.0 FL LAB HEMETOLOGY METHOD 07/24/2024 7:30 AM [facility] MCH 24.8(L) 27.0 - 32.0 pcg LAB HEMETOLOGY METHOD 07/24/2024 7:30 AM [facility] LAB MCHC 30.4(L) 32.0 - 37.0 g/dL LAB HEMETOLOGY METHOD 07/24/2024 7:30 AM [facility] RDW 21.7(H) 11.0 - 15.0 % LAB HEMETOLOGY METHOD 07/24/2024 7:30 AM [facility] LAB Platelets 174 130 - 400 K/mcL LAB HEMETOLOGY METHOD 07/24/2024 7:30 AM [facility] MPV 10.6 7.0 - 11.0 FL LAB HEMETOLOGY METHOD 07/24/2024 7:30 AM [facility] NRBC 0.0 <1.0 % LAB HEMETOLOGY METHOD 07/24/2024 7:30 AM [facility] NRBC Absolute 0.00 <0.10 K/mcL LAB HEMETOLOGY METHOD 07/24/2024 7:30 AM [facility] Neutrophils Relative 84.4 % LAB HEMETOLOGY METHOD 07/24/2024 7:30 AM [facility] LAB Lymphocytes Relative 6.4 % LAB HEMETOLOGY METHOD 07/24/2024 7:30 AM EST [facility] Monocytes Relative 8.3 % LAB HEMETOLOGY METHOD 07/24/2024 7:30 AM [facility] Eosinophils Relative 0.0 % LAB HEMETOLOGY METHOD 07/24/2024 7:30 AM [facility] Basophils Relative 0.1 % LAB HEMETOLOGY METHOD 07/24/2024 7:30 AM [facility] Immature Granulocytes Relative 0.8 % LAB HEMETOLOGY METHOD 07/24/2024 7:30 AM [facility] Neutrophils Absolute 11.03(H) 1.50 - 7.00 K/mcL LAB HEMETOLOGY METHOD 07/24/2024 7:30 AM [facility] Lymphocytes Absolute 0.83(L) 1.00 - 5.00 K/mcL LAB HEMETOLOGY METHOD 07/24/2024 7:30 AM [facility] Monocytes Absolute 1.08(H) 0.20 - 1.00 K/mcL LAB HEMETOLOGY METHOD 07/24/2024 7:30 AM [facility] Eosinophils Absolute 0.00 0.00 - 0.50 K/mcL LAB HEMETOLOGY METHOD 07/24/2024 7:30 AM [facility] Basophils Absolute 0.01 0.00 - 0.20 K/mcL LAB HEMETOLOGY METHOD 07/24/2024 7:30 AM [facility] Immature Granulocytes Absolute 0.11(H) 0.00 - 0.03 K/mcL LAB HEMETOLOGY METHOD 07/24/2024 7:30 AM [facility] Blood Venous blood specimen / Unknown Venipuncture / Unknown 07/24/2024 6:48 AM EST 07/24/2024 7:03 AM EST us [facility] LAB BLOOD ORDERABLES Final R esult [facility] [address] [place] [address], * (ABNORMAL) CBC - Every 3 Days (07/24/2024 6:48 AM EST) WBC 13.1(H) 4.8 - 10.8 K/mcL LAB HEMETOLOGY METHOD 07/24/2024 7:30 AM EST [facility] RBC 3.10(L) 3.80 - 4.80 M/mcL LAB HEMETOLOGY METHOD 07/24/2024 7:30 AM [facility] Hemoglobin 7.7(L) 11.5 - 16.0 g/dL LAB HEMETOLOGY METHOD 07/24/2024 7:30 AM [facility] Hematocrit 25.3(L) 35.0 - 47.0 % LAB HEMETOLOGY METHOD 07/24/2024 7:30 AM [facility] MCV 81.4 79.0 - 98.0 FL LAB HEMETOLOGY METHOD 07/24/2024 7:30 AM [facility] MCH 24.8(L) 27.0 - 32.0 pcg LAB HEMETOLOGY METHOD 07/24/2024 7:30 AM [facility] MCHC 30.4(L) 32.0 - 37.0 g/dL LAB HEMETOLOGY METHOD 07/24/2024 7:30 AM [facility] RDW 21.7(H) 11.0 - 15.0 % LAB HEMETOLOGY METHOD 07/24/2024 7:30 AM [facility] Platelets 174 130 - 400 K/mcL LAB HEMETOLOGY METHOD 07/24/2024 7:30 AM [facility] MPV 10.6 7.0 - 11.0 FL LAB HEMETOLOGY METHOD 07/24/2024 7:30 AM [facility] LAB NRBC 0.0 <1.0 % LAB HEMETOLOGY METHOD 07/24/2024 7:30 AM EST [facility] LAB NRBC Absolute 0.00 <0.10 K/mcL LAB HEMETOLOGY METHOD 07/24/2024 7:30 AM [facility] Blood Venous blood specimen / Unknown Venipuncture / Unknown 07/24/2024 6:48 AM EST 07/24/2024 7:03 AM EST [facility] LAB BLOOD ORDERABLES Final R esult [facility] [address] [place] [address], * (ABNORMAL) Basic metabolic panel (07/24/2024 6:48 AM EST) Sodium 132(L) 133 - 145 mmol/L LAB CHEMISTRY METHOD 07/24/2024 8:38 AM [facility] Potassium 4.1 3.5 - 5.5 mmol/L LAB CHEMISTRY METHOD 07/24/2024 8:38 AM [facility] Chloride 94(L) 96 - 110 mmol/L LAB CHEMISTRY METHOD 07/24/2024 8:38 AM [facility] CO2 29 21 - 32 mmol/L LAB CHEMISTRY METHOD 07/24/2024 8:38 AM [facility] Anion Gap 9 3 - 11 LAB CHEMISTRY METHOD 07/24/2024 8:38 AM [facility] Glucose 286(H) 70 - 100 mg/dL LAB CHEMISTRY METHOD 07/24/2024 8:38 AM [facility] BUN 54(H) 5 - 25 mg/dL LAB CHEMISTRY METHOD 07/24/2024 8:38 AM [facility] Creatinine 2.84(H) 0.50 - 1.10 mg/dL LAB CHEMISTRY METHOD 07/24/2024 8:38 AM EST [facility] LAB eGFR 16(L) >=60 mL/min/1. 73m2 LAB CHEMISTRY METHOD 07/24/2024 8:38 AM EST [facility] LAB Comment:Calculation based on the??Chronic Kidney Disease Epidemiology Collaboration (CKD-EPI) equation refit??without adjustment for race. BUN/Creatinine Ratio 19.0 LAB CHEMISTRY METHOD 07/24/2024 8:38 AM EST [facility] Calcium 8.0(L) 8.5 - 10.5 mg/dL LAB CHEMISTRY METHOD 07/24/2024 8:38 AM EST [facility] Blood Venous blood specimen / Unknown Venipuncture / Unknown 07/24/2024 6:48 AM EST 07/24/2024 7:03 AM EST us Lencho Stuart MD LAB BLOOD ORDERABLES Final R esult Performing Organization Address City/[facility]/ZIP Co de Phone Number [facility] [address] [place] [address], * Heparin and low molecular weight anti Xa level (07/24/2024 12:07 AM EST) Heparin Anti-Xa 0.69 0.30 - 0.70 I Unit/mL LAB COAGULATION METHOD 07/24/2024 12:28 AM EST [facility] Blood Venous blood specimen / Unknown Venipuncture / Unknown 07/24/2024 12:07 AM EST 07/24/2024 12:17 AM EST Narrative [facility] - 07/24/2024 12:28 AM EST Therapeutic range listed is for Unfractionated Heparin. LMW Heparin therapeutic range: 0.50-1.20 IU/mL us Lencho Stuart MD LAB BLOOD ORDERABLES Final R esult [facility] [address] [place] [address], [place] [phone] * (ABNORMAL) POCT Glucose, blood (07/23/2024 7:35 PM EST) Glucose POCT 320(H) 70 - 100 mg/dL 07/23/2024 7:35 PM EST [facility] Blood Capillary blood specimen / Unknown 07/23/2024 7:35 PM EST 07/23/2024 7:37 PM EST us Lencho Stuart MD LAB POINT OF CARE TE ST DOCKED DEVICE UNSOLICITED RESULTS Final Result [facility] [address] [place] [address], [place] [phone] * Transfuse RBC (07/23/2024 6:19 PM EST) [...] Insertion of 18g/10cm [employer] Powerglide midline Lot: [id number] Exp: 2025-05-28 Indications: ??Difficult draw with frequent [...] - 100 mg/dL 07/23/2024 4:31 PM EST [facility] Blood Capillary blood specimen / Unknown 07/23/2024 4:30 PM EST 07/23/2024 4:32 PM EST us Lencho Stuart MD LAB POINT OF CARE TE ST DOCKED DEVICE UNSOLICITED RESULTS Final Result Performing Organization Address [facility] de Phone Number [facility] [address] [place] [address], * (ABNORMAL) Heparin and low molecular weight anti Xa level (07/23/2024 4:08 PM EST) Heparin Anti-Xa 0.82(H) 0.30 - 0.70 I Unit/mL LAB COAGULATION METHOD 07/23/2024 4:33 PM EST [facility] Blood Venous blood specimen / Unknown Venipuncture / Unknown 07/23/2024 4:08 PM EST 07/23/2024 4:24 PM EST Narrative [facility] - 07/23/2024 4:33 PM EST Therapeutic range listed is for Unfractionated Heparin. LMW Heparin therapeutic range: 0.50-1.20 IU/mL us Lencho Stuart MD LAB BLOOD ORDERABLES Final R esult Performing Organization Address City/[facility]/ZIP Co de Phone Number [facility] [address] [place] [address], [place] [phone] * Type and screen (07/23/2024 12:31 PM EST) ABO Group O 07/23/2024 2:33 PM EST [facility] Rh Type Positive 07/23/2024 2:33 PM EST [facility] Antibody Screen Negative 07/23/2024 2:33 PM EST [facility] Blood Venous blood specimen / Unknown Venipuncture / Unknown 07/23/2024 12:31 PM EST 07/23/2024 12:50 PM EST us Lencho Stuart MD LAB BLOOD BANK TEST ORDERABL ES Final Result [facility] [address] [place] [address], [place] [phone] * (ABNORMAL) POCT Glucose, blood (07/23/2024 12:12 PM EST) Pathologist [facility] Glucose POCT 204(H) 70 - 100 mg/dL 07/23/2024 12:13 PM EST [facility] Blood Capillary blood specimen / Unknown 07/23/2024 12:12 PM EST 07/23/2024 12:14 PM EST us Lencho Stuart MD LAB POINT OF CARE TE ST DOCKED DEVICE UNSOLICITED RESULTS Final Result [facility] [address] [place] [address], [place] [phone] * Prepare RBC: 1 Units (07/23/2024 11:14 AM EST) Product Code [id number] 07/23/2024 3:38 PM EST [facility] Unit Number [id number] 07/23/19 3:38 PM EST [facility] Crossmatch Compatible 07/23/2024 2:36 PM EST [facility] Dispense Status Transfused 07/23/2024 3:38 PM EST [facility] Unit ABO Rh OPOS 07/23/2024 3:38 PM [facility] Unit Expiration Date Time [id number] 07/23/2024 3:38 PM [facility] Unit Blood Type 5100 07/23/2024 3:38 PM [facility] Blood Venous blood specimen / Unknown 07/23/2024 11:14 AM EST 07/23/2024 12:50 PM EST us Lencho Stuart MD BLOOD BANK PRODUCT ORDERABLE S Final Result Performing Organization Address [facility] de Phone Number [facility] [address] [place] [address], [place] [phone] * (ABNORMAL) Heparin and low molecular weight anti Xa level (07/23/2024 8:40 AM EST) Heparin Anti-Xa 0.77(H) 0.30 - 0.70 I Unit/mL LAB COAGULATION METHOD 07/23/2024 9:05 AM EST [facility] Blood Venous blood specimen / Unknown Venipuncture / Unknown 07/23/2024 8:40 AM EST 07/23/2024 8:47 AM EST Narrative [facility] - 07/23/2024 9:05 AM EST Therapeutic range listed is for Unfractionated Heparin. LMW Heparin therapeutic range: 0.50-1.20 IU/mL us Lencho Stuart MD LAB BLOOD ORDERABLES Final R esult Performing Organization Address City/[facility]/ZIP Co de Phone Number [facility] [address] [place] [address], [place] [phone] * (ABNORMAL) CBC auto differential (07/23/2024 5:44 AM EST) [facility] WBC 11.6(H) 4.8 - 10.8 K/mcL LAB HEMETOLOGY METHOD 07/23/2024 7:10 AM [facility] RBC 2.80(L) 3.80 - 4.80 M/mcL LAB HEMETOLOGY METHOD 07/23/2024 7:10 AM [facility] Hemoglobin 6.9(L) 11.5 - 16.0 g/dL LAB HEMETOLOGY METHOD 07/23/2024 7:10 AM [facility] Hematocrit 23.0(L) 35.0 - 47.0 % LAB HEMETOLOGY METHOD 07/23/2024 7:10 AM [facility] MCV 81.6 79.0 - 98.0 FL LAB HEMETOLOGY METHOD 07/23/2024 7:10 AM [facility] MCH 24.5(L) 27.0 - 32.0 pcg LAB HEMETOLOGY METHOD 07/23/2024 7:10 AM [facility] MCHC 30.0(L) 32.0 - 37.0 g/dL LAB HEMETOLOGY METHOD 07/23/2024 7:10 AM [facility] RDW 23.3(H) 11.0 - 15.0 % LAB HEMETOLOGY METHOD 07/23/2024 7:10 AM [facility] Platelets 206 130 - 400 K/mcL LAB HEMETOLOGY METHOD 07/23/2024 7:10 AM [facility] MPV 10.5 7.0 - 11.0 FL LAB HEMETOLOGY METHOD 07/23/2024 7:10 AM [facility] NRBC 0.0 <1.0 % LAB HEMETOLOGY METHOD 07/23/2024 7:10 AM [facility] NRBC Absolute 0.00 <0.10 K/mcL LAB HEMETOLOGY METHOD 07/23/2024 7:10 AM [facility] Neutrophils Relative 90.8 % LAB HEMETOLOGY METHOD 07/23/2024 7:10 AM [facility] Lymphocytes Relative 3.4 % LAB HEMETOLOGY METHOD 07/23/2024 7:10 AM [facility] Monocytes Relative 5.0 % LAB HEMETOLOGY METHOD 07/23/2024 7:10 AM [facility] Eosinophils Relative 0.0 % LAB HEMETOLOGY METHOD 07/23/2024 7:10 AM [facility] Basophils Relative 0.1 % LAB HEMETOLOGY METHOD 07/23/2024 7:10 AM [facility] Immature Granulocytes Relative 0.7 % LAB HEMETOLOGY METHOD 07/23/2024 7:10 AM [facility] Neutrophils Absolute 10.52(H) 1.50 - 7.00 K/mcL LAB HEMETOLOGY METHOD 07/23/2024 7:10 AM [facility] Lymphocytes Absolute 0.39(L) 1.00 - 5.00 K/mcL LAB HEMETOLOGY METHOD 07/23/2024 7:10 AM [facility] Monocytes Absolute 0.58 0.20 - 1.00 K/mcL LAB HEMETOLOGY METHOD 07/23/2024 7:10 AM [facility] Eosinophils Absolute 0.00 0.00 - 0.50 K/mcL LAB HEMETOLOGY METHOD 07/23/2024 7:10 AM [facility] Basophils Absolute 0.01 0.00 - 0.20 K/mcL LAB HEMETOLOGY METHOD 07/23/2024 7:10 AM [facility] Immature Granulocytes Absolute 0.08(H) 0.00 - 0.03 K/mcL LAB HEMETOLOGY METHOD 07/23/2024 7:10 AM [facility] Blood Venous blood specimen / Unknown Venipuncture / Unknown 07/23/2024 5:44 AM EST 07/23/2024 6:50 AM EST Lencho Stuart MD LAB BLOOD ORDERABLES Final R esult [facility] [address] [place] [address], * (ABNORMAL) Basic metabolic panel (07/23/2024 5:44 AM EST) Sodium 130(L) 133 - 145 mmol/L LAB CHEMISTRY METHOD 07/23/2024 8:36 AM [facility] Potassium 5.5 3.5 - 5.5 mmol/L LAB CHEMISTRY METHOD 07/23/2024 8:36 AM [facility] Chloride 92(L) 96 - 110 mmol/L LAB CHEMISTRY METHOD 07/23/2024 8:36 AM [facility] CO2 29 21 - 32 mmol/L LAB CHEMISTRY METHOD 07/23/2024 8:36 AM [facility] Anion Gap 9 3 - 11 LAB CHEMISTRY METHOD 07/23/2024 8:36 AM [facility] Glucose 378(H) 70 - 100 mg/dL LAB CHEMISTRY METHOD 07/23/2024 8:36 AM [facility] BUN 76(H) 5 - 25 mg/dL LAB CHEMISTRY METHOD 07/23/2024 8:36 AM [facility] Creatinine 4.16(H) 0.50 - 1.10 mg/dL LAB CHEMISTRY METHOD 07/23/2024 8:36 AM [facility] eGFR 10(L) >=60 mL/min/1. 73m2 LAB CHEMISTRY METHOD 07/23/2024 8:36 AM [facility] Comment:Calculation based on the??Chronic Kidney Disease Epidemiology Collaboration (CKD-EPI) equation refit??without adjustment for race. BUN/Creatinine Ratio 18.3 LAB CHEMISTRY METHOD 07/23/2024 8:36 AM EST [facility] Calcium 7.9(L) 8.5 - 10.5 mg/dL LAB CHEMISTRY METHOD 07/23/2024 8:36 AM EST [facility] Blood Venous blood specimen / Unknown Venipuncture / Unknown 07/23/2024 5:44 AM EST 07/23/2024 6:50 AM EST Lencho Stuart MD LAB BLOOD ORDERABLES Final R esult [facility] [address] [place] [address], [place] [phone] * (ABNORMAL) Heparin and low molecular weight anti Xa level (07/23/2024 2:05 AM EST) Heparin Anti-Xa 0.87(H) 0.30 - 0.70 I Unit/mL LAB COAGULATION METHOD 07/23/2024 2:20 AM EST [facility] Blood Venous blood specimen / Unknown Venipuncture / Unknown 07/23/2024 2:05 AM EST 07/23/2024 2:10 AM EST Narrative [facility] - 07/23/2024 2:20 AM EST Therapeutic range listed is for Unfractionated Heparin. LMW Heparin therapeutic range: 0.50-1.20 IU/mL Lencho Stuart MD LAB BLOOD ORDERABLES Final R esult [facility] [address] [place] [address], [place] [phone] * (ABNORMAL) POCT Glucose, blood (07/22/2024 8:10 PM EST) Glucose POCT 304(H) 70 - 100 mg/dL 07/22/2024 8:10 PM EST [facility] Blood Capillary blood specimen / Unknown 07/22/2024 8:10 PM EST 07/22/2024 8:11 PM EST Lencho Stuart MD LAB POINT OF CARE TE ST DOCKED DEVICE UNSOLICITED RESULTS Final Result Performing Organization Address [facility] Co de Phone Number [facility] [address] [place] [address], [place] [phone] * (ABNORMAL) Hemoglobin and hematocrit (07/22/2024 6:40 PM EST) Hemoglobin 7.1(L) 11.5 - 16.0 g/dL LAB HEMETOLOGY METHOD 07/22/2024 7:24 PM EST [facility] Hematocrit 23.3(L) 35.0 - 47.0 % LAB HEMETOLOGY METHOD 07/22/2024 7:24 PM EST [facility] Blood Venous blood specimen / Unknown Venipuncture / Unknown 07/22/2024 6:40 PM EST 07/22/2024 7:20 PM EST Fela Palomo MD LAB BLOOD ORDERABLES Final Resu lt Performing Organization Address [facility]/ZIP Co de Phone Number [facility] [address] [place] [address], [place] [phone] * (ABNORMAL) POCT Glucose, blood (07/22/2024 4:10 PM EST) Glucose POCT 267(H) 70 - 100 mg/dL 07/22/2024 4:11 PM EST [facility] Blood Capillary blood specimen / Unknown 07/22/2024 4:10 PM EST 07/22/2024 4:12 PM EST Lencho Stuart MD LAB POINT OF CARE TE ST DOCKED DEVICE UNSOLICITED RESULTS Final Result [facility] [address] [place] [address], * IR Bx Ndl Renal Perc Left [...] Signed Date: 07/22/2024 17:00 ET Workstation ID: [id number] Transcribed By: Self Edit Transcribed Date: 07/22/2024 [...] of fentanyl administered during the procedure. Scanner: [email or web address] [address] Dose reduction technique: AEC [...] of fentanyl administered during the procedure. Scanner: [email or web address] [address] Dose reduction technique: AEC [...] Signed Date: 07/22/2024 17:00 ET Workstation ID: [id number] Transcribed By: Self Edit Transcribed Date: 07/22/2024 [...] Tissue exam (07/22/2024 3:13 PM EST) Addendum [facility] Kidney (addendum) This case was sent to [facility], Department of Pathology, [place], [place] (CLIA: [id number]). Their diagnosis is summarized as follows: Pathologic [...] report for full kidney biopsy diagnosis from [place], [place]) 08/12/2024 10:52 AM [facility] Addendum electronically signed by Mitchell Prince MD on 08/12/2024 at 10:52 AM Final Diagnosis Kidney, left-biopsies for routine, immunofluorescence and electron microscopy: -Submitted in toto to [facility] -See addendum report 08/12/2024 10:52 AM [facility] Gross Description A. Kidney, Left, : Labeled kidney L . Received fresh in saline are 3 perez-pink soft tissue cores, ranging from 0.7 x 0.1 cm to 1.7 x 0.1 cm, which are transfered to formalin for light microscopy, Mick fixative for Immunofluorescence, and Glutaraldehyde for electron microscopy. The specimen is entirely submitted to [facility] for analysis. ELOISE 08/12/2024 10:52 AM [facility] Disclaimer Unless otherwise specified, all tissue is 10% NB formalin fixed and paraffin embedded. 08/12/2024 10:52 AM [facility] Tissue Left kidney structure / Unknown 07/22/2024 3:13 PM EST 07/22/2024 3:39 PM EST us Fela Palomo MD LAB PATHOLOGY ORDERABLES Edited Result - Final [facility] [address] [place] [address], * (ABNORMAL) Prothrombin time with INR (07/22/2024 11:00 AM EST) Protime 16.3(H) 10.6 - 13.9 sec LAB COAGULATION METHOD 07/22/2024 1:11 PM EST [facility] INR 1.3 LAB COAGULATION METHOD 07/22/2024 1:11 PM EST [facility] Blood Venous blood specimen / Unknown Venipuncture / Unknown 07/22/2024 11:00 AM EST 07/22/2024 11:22 AM EST Lencho Stuart MD LAB BLOOD ORDERABLES Final R esult [facility] [address] [place] [address], * (ABNORMAL) Anti-Xa - Every 6 Hours (07/22/2024 11:00 AM EST) Heparin Anti-Xa <0.04(L) 0.30 - 0.70 I Unit/mL LAB COAGULATION METHOD 07/22/2024 12:11 PM EST [facility] Blood Venous blood specimen / Unknown Venipuncture / Unknown 07/22/2024 11:00 AM EST 07/22/2024 11:22 AM EST Narrative [facility] - 07/22/2024 12:11 PM EST Therapeutic range listed is for Unfractionated Heparin. LMW Heparin therapeutic range: 0.50-1.20 IU/mL Lencho Stuart MD LAB BLOOD ORDERABLES Final R esult [facility] [address] [place] [address], * Lavender tube (07/22/2024 10:53 AM EST) Extra Tube Hold for add-ons. 07/22/2024 1:01 PM EST [facility] Comment:Auto resulted. Blood Venous blood specimen / Unknown 07/22/2024 10:53 AM EST 07/22/2024 11:25 AM EST us Lencho Stuart MD LAB BLOOD ORDERABLES Final R esult Performing Organization Address [facility]/ZIP Co de Phone Number [facility] [address] [place] [address], [place] [phone] * SST tube (07/22/2024 10:53 AM EST) Extra Tube Hold for add-ons. 07/22/2024 1:01 PM EST [facility] Comment:Auto resulted. Blood Venous blood specimen / Unknown 07/22/2024 10:53 AM EST 07/22/2024 11:25 AM EST us Lencho Stuart MD LAB BLOOD ORDERABLES Final R esult Performing Organization Address [facility] Co de Phone Number [facility] [address] [place] [address], [place] [phone] * (ABNORMAL) POCT Glucose, blood (07/22/2024 10:48 AM EST) Glucose POCT 280(H) 70 - 100 mg/dL 07/22/2024 11:08 AM EST [facility] Blood Capillary blood specimen / Unknown 07/22/2024 10:48 AM EST 07/22/2024 11:09 AM EST us Lencho Stuart MD LAB POINT OF CARE TE ST DOCKED DEVICE UNSOLICITED RESULTS Final Result Performing Organization Address City/[facility]/ZIP Co de Phone Number [facility] [address] [place] [address], [place] [phone] * (ABNORMAL) POCT Glucose, blood (07/22/2024 8:10 AM EST) Glucose POCT 300(H) 70 - 100 mg/dL 07/22/2024 8:11 AM EST [facility] Blood Capillary blood specimen / Unknown 07/22/2024 8:10 AM EST 07/22/2024 8:13 AM EST Lencho Stuart MD LAB POINT OF CARE TE ST DOCKED DEVICE UNSOLICITED RESULTS Final Result Performing Organization Address City/[facility]/ZIP Co de Phone Number [facility] [address] [place] [address], [place] [phone] * (ABNORMAL) POCT Glucose, blood (07/22/2024 3:43 AM EST) [facility] Glucose POCT 276(H) 70 - 100 mg/dL 07/22/2024 3:44 AM EST [facility] Blood Capillary blood specimen / Unknown 07/22/2024 3:43 AM EST 07/22/2024 3:45 AM EST Lencho Stuart MD LAB POINT OF CARE TE ST DOCKED DEVICE UNSOLICITED RESULTS Final Result Performing Organization Address [facility] Co de Phone Number [facility] [address] [place] [address], [place] [phone] * (ABNORMAL) CBC auto differential (07/22/2024 3:11 AM EST) [facility] WBC 9.6 4.8 - 10.8 K/mcL LAB HEMETOLOGY METHOD 07/22/2024 3:32 AM EST [facility] RBC 3.00(L) 3.80 - 4.80 M/mcL LAB HEMETOLOGY METHOD 07/22/2024 3:32 AM EST [facility] Hemoglobin 7.2(L) 11.5 - 16.0 g/dL LAB HEMETOLOGY METHOD 07/22/2024 3:32 AM EST [facility] LAB Hematocrit 24.3(L) 35.0 - 47.0 % LAB HEMETOLOGY METHOD 07/22/2024 3:32 AM [facility] LAB MCV 80.5 79.0 - 98.0 FL LAB HEMETOLOGY METHOD 07/22/2024 3:32 AM [facility] LAB MCH 23.8(L) 27.0 - 32.0 pcg LAB HEMETOLOGY METHOD 07/22/2024 3:32 AM [facility] LAB MCHC 29.6(L) 32.0 - 37.0 g/dL LAB HEMETOLOGY METHOD 07/22/2024 3:32 AM [facility] LAB RDW 23.6(H) 11.0 - 15.0 % LAB HEMETOLOGY METHOD 07/22/2024 3:32 AM [facility] LAB Platelets 169 130 - 400 K/mcL LAB HEMETOLOGY METHOD 07/22/2024 3:32 AM [facility] LAB MPV 9.7 7.0 - 11.0 FL LAB HEMETOLOGY METHOD 07/22/2024 3:32 AM [facility] LAB NRBC 0.0 <1.0 % LAB HEMETOLOGY METHOD 07/22/2024 3:32 AM [facility] LAB NRBC Absolute 0.00 <0.10 K/mcL LAB HEMETOLOGY METHOD 07/22/2024 3:32 AM [facility] LAB Neutrophils Relative 95.2 % LAB HEMETOLOGY METHOD 07/22/2024 3:32 AM [facility] LAB Lymphocytes Relative 3.3 % LAB HEMETOLOGY METHOD 07/22/2024 3:32 AM [facility] LAB Monocytes Relative 0.7 % LAB HEMETOLOGY METHOD 07/22/2024 3:32 AM [facility] LAB Eosinophils Relative 0.0 % LAB HEMETOLOGY METHOD 07/22/2024 3:32 AM [facility] LAB Basophils Relative 0.1 % LAB HEMETOLOGY METHOD 07/22/2024 3:32 AM EST [facility] LAB Immature Granulocytes Relative 0.7 % LAB HEMETOLOGY METHOD 07/22/2024 3:32 AM EST [facility] LAB Neutrophils Absolute 9.13(H) 1.50 - 7.00 K/mcL LAB HEMETOLOGY METHOD 07/22/2024 3:32 AM EST [facility] LAB Lymphocytes Absolute 0.32(L) 1.00 - 5.00 K/mcL LAB HEMETOLOGY METHOD 07/22/2024 3:32 AM EST [facility] LAB Monocytes Absolute 0.07(L) 0.20 - 1.00 K/mcL LAB HEMETOLOGY METHOD 07/22/2024 3:32 AM EST [facility] LAB Eosinophils Absolute 0.00 0.00 - 0.50 K/mcL LAB HEMETOLOGY METHOD 07/22/2024 3:32 AM EST [facility] LAB Basophils Absolute 0.01 0.00 - 0.20 K/mcL LAB HEMETOLOGY METHOD 07/22/2024 3:32 AM EST [facility] LAB Immature Granulocytes Absolute 0.07(H) 0.00 - 0.03 K/mcL LAB HEMETOLOGY METHOD 07/22/2024 3:32 AM EST [facility] LAB Blood Venous blood specimen / Unknown Venipuncture / Unknown 07/22/2024 3:11 AM EST 07/22/2024 3:23 AM EST us [facility] S[facility]ERR[facility] LAB BLOOD ORDERABLES Final R esult [facility] LAB [address] [place] [address], * (ABNORMAL) Basic metabolic panel (07/22/2024 3:11 AM EST) Sodium 132(L) 133 - 145 mmol/L LAB CHEMISTRY METHOD 07/22/2024 4:20 AM [facility] LAB Potassium 5.0 3.5 - 5.5 mmol/L LAB CHEMISTRY METHOD 07/22/2024 4:20 AM [facility] LAB Chloride 95(L) 96 - 110 mmol/L LAB CHEMISTRY METHOD 07/22/2024 4:20 AM [facility] LAB CO2 27 21 - 32 mmol/L LAB CHEMISTRY METHOD 07/22/2024 4:20 AM [facility] LAB Anion Gap 10 3 - 11 LAB CHEMISTRY METHOD 07/22/2024 4:20 AM [facility] LAB Glucose 264(H) 70 - 100 mg/dL LAB CHEMISTRY METHOD 07/22/2024 4:20 AM [facility] LAB BUN 40(H) 5 - 25 mg/dL LAB CHEMISTRY METHOD 07/22/2024 4:20 AM [facility] LAB Creatinine 2.87(H) 0.50 - 1.10 mg/dL LAB CHEMISTRY METHOD 07/22/2024 4:20 AM [facility] LAB eGFR 16(L) >=60 mL/min/1. 73m2 LAB CHEMISTRY METHOD 07/22/2024 4:20 AM [facility] LAB Comment:Calculation based on the??Chronic Kidney Disease Epidemiology Collaboration (CKD-EPI) equation refit??without adjustment for race. BUN/Creatinine Ratio 13.9 LAB CHEMISTRY METHOD 07/22/2024 4:20 AM [facility] LAB Calcium 7.4(L) 8.5 - 10.5 mg/dL LAB CHEMISTRY METHOD 07/22/2024 4:20 AM [facility] LAB Blood Venous blood specimen / Unknown Venipuncture / Unknown 07/22/2024 3:11 AM EST 07/22/2024 4:20 AM EST us [facility] LAB BLOOD ORDERABLES Final R esult [facility] LAB [address] [place] [address], [place] [phone] * (ABNORMAL) Anti-Xa - Every 6 Hours (07/22/2024 3:09 AM EST) Heparin Anti-Xa 0.26(L) 0.30 - 0.70 I Unit/mL LAB COAGULATION METHOD 07/22/2024 3:33 AM EST [facility] LAB Blood Venous blood specimen / Unknown Venipuncture / Unknown 07/22/2024 3:09 AM EST 07/22/2024 3:23 AM EST Narrative [facility] LAB - 07/22/2024 3:33 AM EST Therapeutic range listed is for Unfractionated Heparin. LMW Heparin therapeutic range: 0.50-1.20 IU/mL us Lencho Stuart MD LAB BLOOD ORDERABLES Final R esult Performing Organization Address [facility]/ZIP Co de Phone Number [facility] LAB [address] [place] [address], [place] [phone] * (ABNORMAL) POCT Glucose, blood (07/21/2024 8:10 PM EST) Glucose POCT 172(H) 70 - 100 mg/dL 07/21/2024 8:11 PM EST [facility] LAB Blood Capillary blood specimen / Unknown 07/21/2024 8:10 PM EST 07/21/2024 8:12 PM EST us Lencho Stuart MD LAB POINT OF CARE TE ST DOCKED DEVICE UNSOLICITED RESULTS Final Result Performing Organization Address [facility]/ZIP Co de Phone Number [facility] [address] [place] [address], [place] [phone] * (ABNORMAL) Heparin and low molecular weight anti Xa level (07/21/2024 8:02 PM EST) Heparin Anti-Xa 0.27(L) 0.30 - 0.70 I Unit/mL LAB COAGULATION METHOD 07/21/2024 8:37 PM EST [facility] LAB Blood Venous blood specimen / Unknown Venipuncture / Unknown 07/21/2024 8:02 PM EST 07/21/2024 8:26 PM EST Narrative [facility] LAB - 07/21/2024 8:37 PM EST Therapeutic range listed is for Unfractionated Heparin. LMW Heparin therapeutic range: 0.50-1.20 IU/mL us Lencho Stuart MD LAB BLOOD ORDERABLES Final R esult [facility] [address] [place] [address], [place] [phone] * (ABNORMAL) POCT Glucose, blood (07/21/2024 5:04 PM EST) Glucose POCT 175(H) 70 - 100 mg/dL 07/21/2024 5:05 PM EST [facility] LAB Blood Capillary blood specimen / Unknown 07/21/2024 5:04 PM EST 07/21/2024 5:06 PM EST us Lencho Stuart MD LAB POINT OF CARE TE ST DOCKED DEVICE UNSOLICITED RESULTS Final Result [facility] [address] [place] [address], [place] [phone] * POCT Glucose, blood (07/21/2024 1:57 PM EST) Glucose POCT 96 70 - 100 mg/dL 07/21/2024 1:58 PM EST [facility] LAB Blood Capillary blood specimen / Unknown 07/21/2024 1:57 PM EST 07/21/2024 1:59 PM EST us Lencho Stuart MD LAB POINT OF CARE TE ST DOCKED DEVICE UNSOLICITED RESULTS Final Result [facility] [address] [place] [address], * (ABNORMAL) Complete blood count (07/21/2024 8:55 AM EST) WBC 18.9(H) 4.8 - 10.8 K/mcL LAB HEMETOLOGY METHOD 07/21/2024 9:21 AM [facility] LAB RBC 3.00(L) 3.80 - 4.80 M/mcL LAB HEMETOLOGY METHOD 07/21/2024 9:21 AM [facility] LAB Hemoglobin 7.3(L) 11.5 - 16.0 g/dL LAB HEMETOLOGY METHOD 07/21/2024 9:21 AM [facility] LAB Hematocrit 23.7(L) 35.0 - 47.0 % LAB HEMETOLOGY METHOD 07/21/2024 9:21 AM [facility] LAB MCV 80.3 79.0 - 98.0 FL LAB HEMETOLOGY METHOD 07/21/2024 9:21 AM [facility] LAB MCH 24.7(L) 27.0 - 32.0 pcg LAB HEMETOLOGY METHOD 07/21/2024 9:21 AM [facility] LAB MCHC 30.8(L) 32.0 - 37.0 g/dL LAB HEMETOLOGY METHOD 07/21/2024 9:21 AM [facility] LAB RDW 23.7(H) 11.0 - 15.0 % LAB HEMETOLOGY METHOD 07/21/2024 9:21 AM [facility] LAB Platelets 195 130 - 400 K/mcL LAB HEMETOLOGY METHOD 07/21/2024 9:21 AM EST [facility] LAB MPV 10.2 7.0 - 11.0 FL LAB HEMETOLOGY METHOD 07/21/2024 9:21 AM EST [facility] LAB NRBC 0.0 <1.0 % LAB HEMETOLOGY METHOD 07/21/2024 9:21 AM [facility] LAB NRBC Absolute 0.00 <0.10 K/mcL LAB HEMETOLOGY METHOD 07/21/2024 9:21 AM EST [facility] LAB Blood Venous blood specimen / Unknown Venipuncture / Unknown 07/21/2024 8:55 AM EST 07/21/2024 9:11 AM EST [facility] LAB BLOOD ORDERABLES Final R esult [facility] [address] [place] [address], * (ABNORMAL) Basic metabolic panel (07/21/2024 8:55 AM EST) Sodium 130(L) 133 - 145 mmol/L LAB CHEMISTRY METHOD 07/21/2024 9:50 AM [facility] LAB Potassium 4.8 3.5 - 5.5 mmol/L LAB CHEMISTRY METHOD 07/21/2024 9:50 AM [facility] LAB Chloride 92(L) 96 - 110 mmol/L LAB CHEMISTRY METHOD 07/21/2024 9:50 AM [facility] LAB CO2 29 21 - 32 mmol/L LAB CHEMISTRY METHOD 07/21/2024 9:50 AM [facility] LAB Anion Gap 9 3 - 11 LAB CHEMISTRY METHOD 07/21/2024 9:50 AM [facility] LAB Glucose 142(H) 70 - 100 mg/dL LAB CHEMISTRY METHOD 07/21/2024 9:50 AM [facility] LAB BUN 63(H) 5 - 25 mg/dL LAB CHEMISTRY METHOD 07/21/2024 9:50 AM EST [facility] LAB Creatinine 5.05(H) 0.50 - 1.10 mg/dL LAB CHEMISTRY METHOD 07/21/2024 9:50 AM [facility] LAB eGFR 8(L) >=60 mL/min/1. 73m2 LAB CHEMISTRY METHOD 07/21/2024 9:50 AM [facility] LAB Comment:Calculation based on the??Chronic Kidney Disease Epidemiology Collaboration (CKD-EPI) equation refit??without adjustment for race. BUN/Creatinine Ratio 12.5 LAB CHEMISTRY METHOD 07/21/2024 9:50 AM [facility] LAB Calcium 7.6(L) 8.5 - 10.5 mg/dL LAB CHEMISTRY METHOD 07/21/2024 9:50 AM [facility] LAB Blood Venous blood specimen / Unknown Venipuncture / Unknown 07/21/2024 8:55 AM EST 07/21/2024 9:10 AM EST us Lencho Stuart MD LAB BLOOD ORDERABLES Final R esult [facility] [address] [place] [address], [place] [phone] * (ABNORMAL) POCT Glucose, blood (07/21/2024 8:03 AM EST) Glucose POCT 159(H) 70 - 100 mg/dL 07/21/2024 8:04 AM EST [facility] LAB Blood Capillary blood specimen / Unknown 07/21/2024 8:03 AM EST 07/21/2024 8:05 AM EST us Lencho Stuart MD LAB POINT OF CARE TE ST DOCKED DEVICE UNSOLICITED RESULTS Final Result [facility] [address] [place] [address], * SST tube (07/21/2024 5:41 AM EST) Pathologist [facility] Extra Tube Hold for add-ons. 07/21/2024 9:01 AM [facility] LAB Comment:Auto resulted. Blood Venous blood specimen / Unknown 07/21/2024 5:41 AM EST 07/21/2024 7:02 AM EST [facility] LAB BLOOD ORDERABLES Final R esult [facility] [address] [place] [address], * (ABNORMAL) CBC - Every 3 Days (07/21/2024 5:12 AM EST) [facility] WBC 18.8(H) 4.8 - 10.8 K/mcL LAB HEMETOLOGY METHOD 07/21/2024 7:22 AM [facility] LAB RBC 2.90(L) 3.80 - 4.80 M/mcL LAB HEMETOLOGY METHOD 07/21/2024 7:22 AM [facility] LAB Hemoglobin 7.3(L) 11.5 - 16.0 g/dL LAB HEMETOLOGY METHOD 07/21/2024 7:22 AM [facility] LAB Hematocrit 23.6(L) 35.0 - 47.0 % LAB HEMETOLOGY METHOD 07/21/2024 7:22 AM [facility] LAB MCV 81.1 79.0 - 98.0 FL LAB HEMETOLOGY METHOD 07/21/2024 7:22 AM [facility] LAB MCH 25.1(L) 27.0 - 32.0 pcg LAB HEMETOLOGY METHOD 07/21/2024 7:22 AM [facility] LAB MCHC 30.9(L) 32.0 - 37.0 g/dL LAB HEMETOLOGY METHOD 07/21/2024 7:22 AM EST [facility] LAB RDW 23.7(H) 11.0 - 15.0 % LAB HEMETOLOGY METHOD 07/21/2024 7:22 AM [facility] LAB Platelets 200 130 - 400 K/mcL LAB HEMETOLOGY METHOD 07/21/2024 7:22 AM EST [facility] LAB MPV 10.5 7.0 - 11.0 FL LAB HEMETOLOGY METHOD 07/21/2024 7:22 AM [facility] LAB NRBC 0.0 <1.0 % LAB HEMETOLOGY METHOD 07/21/2024 7:22 AM [facility] LAB NRBC Absolute 0.00 <0.10 K/mcL LAB HEMETOLOGY METHOD 07/21/2024 7:22 AM [facility] LAB Blood Venous blood specimen / Unknown Venipuncture / Unknown 07/21/2024 5:12 AM EST 07/21/2024 6:58 AM EST us Lencho Stuart MD LAB BLOOD ORDERABLES Final R esult [facility] [address] [place] [address], * (ABNORMAL) POCT Glucose, blood (07/21/2024 2:47 AM EST) Glucose POCT 144(H) 70 - 100 mg/dL 07/21/2024 2:48 AM EST [facility] LAB Blood Capillary blood specimen / Unknown 07/21/2024 2:47 AM EST 07/21/2024 2:49 AM EST us Lencho Stuart MD LAB POINT OF CARE TE ST DOCKED DEVICE UNSOLICITED RESULTS Final Result [facility] [address] [place] [address], [place] [phone] * (ABNORMAL) POCT Glucose, blood (07/20/2024 8:11 PM EST) [facility] Glucose POCT 140(H) 70 - 100 mg/dL 07/20/2024 8:12 PM EST [facility] LAB Blood Capillary blood specimen / Unknown 07/20/2024 8:11 PM EST 07/20/2024 8:13 PM EST Lencho Stuart MD LAB POINT OF CARE TE ST DOCKED DEVICE UNSOLICITED RESULTS Final Result Performing Organization Address [facility] Co de Phone Number [facility] [address] [place] [address], * (ABNORMAL) Anti-Xa - Every 6 Hours (07/20/2024 7:45 PM EST) [facility] Heparin Anti-Xa <0.04(L) 0.30 - 0.70 I Unit/mL LAB COAGULATION METHOD 07/20/2024 9:02 PM EST [facility] LAB Blood Venous blood specimen / Unknown Venipuncture / Unknown 07/20/2024 7:45 PM EST 07/20/2024 8:01 PM EST Narrative [facility] LAB - 07/20/2024 9:02 PM EST Therapeutic range listed is for Unfractionated Heparin. LMW Heparin therapeutic range: 0.50-1.20 IU/mL Lencho Stuart MD LAB BLOOD ORDERABLES Final R esult [facility] [address] [place] [address], [place] [phone] * (ABNORMAL) POCT Glucose, blood (07/20/2024 4:21 PM EST) Glucose POCT 167(H) 70 - 100 mg/dL 07/20/2024 4:23 PM EST [facility] LAB Blood Capillary blood specimen / Unknown 07/20/2024 4:21 PM EST 07/20/2024 4:24 PM EST us Lencho Stuart MD LAB POINT OF CARE TE ST DOCKED DEVICE UNSOLICITED RESULTS Final Result Performing Organization Address [facility]/ZIP Co de Phone Number [facility] [address] [place] [address], [place] [phone] * Activated Partial Thromboplastin Time - STAT (07/20/2024 2:30 PM EST) [facility] aPTT 30.0 24.1 - 39.3 sec LAB COAGULATION METHOD 07/20/2024 3:06 PM EST [facility] LAB Blood Venous blood specimen / Unknown Venipuncture / Unknown 07/20/2024 2:30 PM EST 07/20/2024 2:52 PM EST us Lencho Stuart MD LAB BLOOD ORDERABLES Final R esult Performing Organization Address [facility] Co de Phone Number [facility] [address] [place] [address], [place] [phone] * (ABNORMAL) Prothrombin Time with INR - STAT (07/20/2024 2:30 PM EST) Protime 17.6(H) 10.6 - 13.9 sec LAB COAGULATION METHOD 07/20/2024 3:06 PM EST [facility] LAB INR 1.4 LAB COAGULATION METHOD 07/20/2024 3:06 PM EST [facility] LAB Blood Venous blood specimen / Unknown Venipuncture / Unknown 07/20/2024 2:30 PM EST 07/20/2024 2:52 PM EST Lencho Stuart MD LAB BLOOD ORDERABLES Final R esult [facility] [address] [place] [address], [place] [phone] * (ABNORMAL) POCT Glucose, blood (07/20/2024 11:23 AM EST) Glucose POCT 139(H) 70 - 100 mg/dL 07/20/2024 11:24 AM EST [facility] LAB Blood Capillary blood specimen / Unknown 07/20/2024 11:23 AM EST 07/20/2024 11:26 AM EST Lencho Stuart MD LAB POINT OF CARE TE ST DOCKED DEVICE UNSOLICITED RESULTS Final Result Performing Organization Address [facility]/ZIP Co de Phone Number [facility] [address] [place] [address], [place] [phone] * (ABNORMAL) POCT Glucose, blood (07/20/2024 8:20 AM EST) Glucose POCT 132(H) 70 - 100 mg/dL 07/20/2024 8:20 AM EST [facility] LAB Blood Capillary blood specimen / Unknown 07/20/2024 8:20 AM EST 07/20/2024 8:21 AM EST Lencho Stuart MD LAB POINT OF CARE TE ST DOCKED DEVICE UNSOLICITED RESULTS Final Result [facility] [address] [place] [address], [place] [phone] * (ABNORMAL) CBC auto differential (07/20/2024 5:46 AM EST) WBC 20.9(H) 4.8 - 10.8 K/mcL LAB HEMETOLOGY METHOD 07/20/2024 7:07 AM [facility] RBC 3.00(L) 3.80 - 4.80 M/mcL LAB HEMETOLOGY METHOD 07/20/2024 7:07 AM [facility] LAB Hemoglobin 7.3(L) 11.5 - 16.0 g/dL LAB HEMETOLOGY METHOD 07/20/2024 7:07 AM [facility] LAB Hematocrit 23.6(L) 35.0 - 47.0 % LAB HEMETOLOGY METHOD 07/20/2024 7:07 AM [facility] LAB MCV 77.9(L) 79.0 - 98.0 FL LAB HEMETOLOGY METHOD 07/20/2024 7:07 AM [facility] LAB MCH 24.1(L) 27.0 - 32.0 pcg LAB HEMETOLOGY METHOD 07/20/2024 7:07 AM [facility] LAB MCHC 30.9(L) 32.0 - 37.0 g/dL LAB HEMETOLOGY METHOD 07/20/2024 7:07 AM [facility] LAB RDW 23.9(H) 11.0 - 15.0 % LAB HEMETOLOGY METHOD 07/20/2024 7:07 AM [facility] LAB Platelets 217 130 - 400 K/mcL LAB HEMETOLOGY METHOD 07/20/2024 7:07 AM [facility] LAB MPV 9.8 7.0 - 11.0 FL LAB HEMETOLOGY METHOD 07/20/2024 7:07 AM [facility] LAB NRBC 0.0 <1.0 % LAB HEMETOLOGY METHOD 07/20/2024 7:07 AM [facility] NRBC Absolute 0.00 <0.10 K/mcL LAB HEMETOLOGY METHOD 07/20/2024 7:07 AM [facility] LAB Neutrophils Relative 86.5 % LAB HEMETOLOGY METHOD 07/20/2024 7:07 AM [facility] Lymphocytes Relative 3.8 % LAB HEMETOLOGY METHOD 07/20/2024 7:07 AM [facility] Monocytes Relative 5.5 % LAB HEMETOLOGY METHOD 07/20/2024 7:07 AM [facility] Eosinophils Relative 2.7 % LAB HEMETOLOGY METHOD 07/20/2024 7:07 AM [facility] Basophils Relative 0.2 % LAB HEMETOLOGY METHOD 07/20/2024 7:07 AM [facility] Immature Granulocytes Relative 1.3 % LAB HEMETOLOGY METHOD 07/20/2024 7:07 AM [facility] Neutrophils Absolute 18.10(H) 1.50 - 7.00 K/mcL LAB HEMETOLOGY METHOD 07/20/2024 7:07 AM [facility] Lymphocytes Absolute 0.80(L) 1.00 - 5.00 K/mcL LAB HEMETOLOGY METHOD 07/20/2024 7:07 AM [facility] Monocytes Absolute 1.16(H) 0.20 - 1.00 K/mcL LAB HEMETOLOGY METHOD 07/20/2024 7:07 AM [facility] Eosinophils Absolute 0.56(H) 0.00 - 0.50 K/mcL LAB HEMETOLOGY METHOD 07/20/2024 7:07 AM [facility] Basophils Absolute 0.04 0.00 - 0.20 K/mcL LAB HEMETOLOGY METHOD 07/20/2024 7:07 AM [facility] LAB Immature Granulocytes Absolute 0.27(H) 0.00 - 0.03 K/mcL LAB HEMETOLOGY METHOD 07/20/2024 7:07 AM [facility] Blood Venous blood specimen / Unknown Venipuncture / Unknown 07/20/2024 5:46 AM EST 07/20/2024 6:38 AM EST us Lencho Stuart MD LAB BLOOD ORDERABLES Final R esult [facility] [address] [place] [address], * (ABNORMAL) CBC - Every 3 Days (07/20/2024 5:46 AM EST) WBC 20.9(H) 4.8 - 10.8 K/mcL LAB HEMETOLOGY METHOD 07/20/2024 7:07 AM [facility] RBC 3.00(L) 3.80 - 4.80 M/mcL LAB HEMETOLOGY METHOD 07/20/2024 7:07 AM [facility] Hemoglobin 7.3(L) 11.5 - 16.0 g/dL LAB HEMETOLOGY METHOD 07/20/2024 7:07 AM [facility] LAB Hematocrit 23.6(L) 35.0 - 47.0 % LAB HEMETOLOGY METHOD 07/20/2024 7:07 AM [facility] LAB MCV 77.9(L) 79.0 - 98.0 FL LAB HEMETOLOGY METHOD 07/20/2024 7:07 AM [facility] MCH 24.1(L) 27.0 - 32.0 pcg LAB HEMETOLOGY METHOD 07/20/2024 7:07 AM [facility] MCHC 30.9(L) 32.0 - 37.0 g/dL LAB HEMETOLOGY METHOD 07/20/2024 7:07 AM [facility] RDW 23.9(H) 11.0 - 15.0 % LAB HEMETOLOGY METHOD 07/20/2024 7:07 AM [facility] Platelets 217 130 - 400 K/mcL LAB HEMETOLOGY METHOD 07/20/2024 7:07 AM [facility] MPV 9.8 7.0 - 11.0 FL LAB HEMETOLOGY METHOD 07/20/2024 7:07 AM EST [facility] NRBC 0.0 <1.0 % LAB HEMETOLOGY METHOD 07/20/2024 7:07 AM EST [facility] NRBC Absolute 0.00 <0.10 K/mcL LAB HEMETOLOGY METHOD 07/20/2024 7:07 AM EST [facility] LAB Blood Venous blood specimen / Unknown Venipuncture / Unknown 07/20/2024 5:46 AM EST 07/20/2024 6:38 AM EST Kwesi Guido MD LAB BLOOD ORDERABLES F inal Result Performing Organization Address [facility]/ZIP Co de Phone Number [facility] [address] [place] [address], * Heparin and low molecular weight anti Xa level (07/20/2024 5:46 AM EST) Heparin Anti-Xa 0.36 0.30 - 0.70 I Unit/mL LAB COAGULATION METHOD 07/20/2024 7:15 AM EST [facility] Blood Venous blood specimen / Unknown Venipuncture / Unknown 07/20/2024 5:46 AM EST 07/20/2024 6:40 AM EST Narrative [facility] - 07/20/2024 7:15 AM EST Therapeutic range listed is for Unfractionated Heparin. LMW Heparin therapeutic range: 0.50-1.20 IU/mL Lencho Stuart MD LAB BLOOD ORDERABLES Final R esult [facility] [address] [place] [address], [place] [phone] * (ABNORMAL) Basic metabolic panel (07/20/2024 5:46 AM EST) Sodium 132(L) 133 - 145 mmol/L LAB CHEMISTRY METHOD 07/20/2024 8:03 AM [facility] Potassium 4.2 3.5 - 5.5 mmol/L LAB CHEMISTRY METHOD 07/20/2024 8:03 AM [facility] Chloride 95(L) 96 - 110 mmol/L LAB CHEMISTRY METHOD 07/20/2024 8:03 AM [facility] CO2 29 21 - 32 mmol/L LAB CHEMISTRY METHOD 07/20/2024 8:03 AM [facility] Anion Gap 8 3 - 11 LAB CHEMISTRY METHOD 07/20/2024 8:03 AM [facility] Glucose 113(H) 70 - 100 mg/dL LAB CHEMISTRY METHOD 07/20/2024 8:03 AM [facility] BUN 41(H) 5 - 25 mg/dL LAB CHEMISTRY METHOD 07/20/2024 8:03 AM [facility] Creatinine 3.68(H) 0.50 - 1.10 mg/dL LAB CHEMISTRY METHOD 07/20/2024 8:03 AM [facility] eGFR 12(L) >=60 mL/min/1. 73m2 LAB CHEMISTRY METHOD 07/20/2024 8:03 AM [facility] Comment:Calculation based on the??Chronic Kidney Disease Epidemiology Collaboration (CKD-EPI) equation refit??without adjustment for race. BUN/Creatinine Ratio 11.1 LAB CHEMISTRY METHOD 07/20/2024 8:03 AM [facility] Calcium 7.3(L) 8.5 - 10.5 mg/dL LAB CHEMISTRY METHOD 07/20/2024 8:03 AM [facility] Blood Venous blood specimen / Unknown Venipuncture / Unknown 07/20/2024 5:46 AM EST 07/20/2024 6:38 AM EST Lencho Stuart MD LAB BLOOD ORDERABLES Final R esult [facility] [address] [place] [address], [place] [phone] * (ABNORMAL) POCT Glucose, blood (07/19/2024 8:18 PM EST) Glucose POCT 146(H) 70 - 100 mg/dL 07/19/2024 8:18 PM EST [facility] Blood Capillary blood specimen / Unknown 07/19/2024 8:18 PM EST 07/19/2024 8:19 PM EST Lencho Stuart MD LAB POINT OF CARE TE ST DOCKED DEVICE UNSOLICITED RESULTS Final Result Performing Organization Address City/[facility]/ZIP Co de Phone Number [facility] [address] [place] [address], [place] [phone] * (ABNORMAL) POCT Glucose, blood (07/19/2024 7:29 PM EST) Glucose POCT 152(H) 70 - 100 mg/dL 07/19/2024 7:30 PM EST [facility] Blood Capillary blood specimen / Unknown 07/19/2024 7:29 PM EST 07/19/2024 7:31 PM EST Lencho Stuart MD LAB POINT OF CARE TE ST DOCKED DEVICE UNSOLICITED RESULTS Final Result [facility] [address] [place] [address], [place] [phone] * (ABNORMAL) POCT Glucose, blood (07/19/2024 4:01 PM EST) Glucose POCT 139(H) 70 - 100 mg/dL 07/19/2024 4:02 PM EST [facility] Blood Capillary blood specimen / Unknown 07/19/2024 4:01 PM EST 07/19/2024 4:03 PM EST Lencho Stuart MD LAB POINT OF CARE TE ST DOCKED DEVICE UNSOLICITED RESULTS Final Result Performing Organization Address [facility]/ZIP Co de Phone Number [facility] [address] [place] [address], * (ABNORMAL) Hemoglobin and hematocrit (07/19/2024 2:31 PM EST) Hemoglobin 7.6(L) 11.5 - 16.0 g/dL LAB HEMETOLOGY METHOD 07/19/2024 3:11 PM EST [facility] Hematocrit 23.8(L) 35.0 - 47.0 % LAB HEMETOLOGY METHOD 07/19/2024 3:11 PM EST [facility] Blood Venous blood specimen / Unknown Venipuncture / Unknown 07/19/2024 2:31 PM EST 07/19/2024 3:05 PM EST Lencho Stuart MD LAB BLOOD ORDERABLES Final R esult Performing Organization Address City/[facility]/ZIP Co de Phone Number WHITE [facility] [address] [place] [address], * Creatinine, urine, random (07/19/2024 12:01 PM EST) Creatinine, Urine 41.0 mg/dL LAB CHEMISTRY METHOD 07/19/2024 1:17 PM EST [facility] Urine Urine specimen obtained by clean catch procedure / Unknown Non-blood Collection / Unknown 07/19/2024 12:01 PM EST 07/19/2024 12:30 PM EST Miguel Quiles MD LAB URINE ORDERABLES Final Res ult Performing Organization Address [facility]/ZIP Co de Phone Number [facility] [address] [place] [address], [place] [phone] * (ABNORMAL) Microalbumin creatinine urine ratio (07/19/2024 12:01 PM EST) Creatinine, Urine 41.0 mg/dL LAB CHEMISTRY METHOD 07/19/2024 1:46 PM EST [facility] Microalb, Ur 1,480.0(H ) 0.0 - 29.0 mg/L LAB CHEMISTRY METHOD 07/19/2024 1:46 PM EST [facility] Microalb/Crea t Ratio 3,610(H) <30 mg/g creat LAB CHEMISTRY METHOD 07/19/2024 1:46 PM EST [facility] Urine Urine specimen obtained by clean catch procedure / Unknown Non-blood Collection / Unknown 07/19/2024 12:01 PM EST 07/19/2024 12:30 PM EST Miguel Quiles MD LAB URINE ORDERABLES Final Res ult Performing Organization Address [facility] Co de Phone Number [facility] [address] [place] [address], [place] [phone] * (ABNORMAL) POCT Glucose, blood (07/19/2024 11:32 AM EST) Glucose POCT 132(H) 70 - 100 mg/dL 07/19/2024 11:33 AM EST [facility] Blood Capillary blood specimen / Unknown 07/19/2024 11:32 AM EST 07/19/2024 11:34 AM EST us Lencho Stuart MD LAB POINT OF CARE TE ST DOCKED DEVICE UNSOLICITED RESULTS Final Result Performing Organization Address [facility]/ZIP Co de Phone Number [facility] [address] [place] [address], [place] [phone] * (ABNORMAL) POCT Glucose, blood (07/19/2024 9:07 AM EST) [facility] Glucose POCT 117(H) 70 - 100 mg/dL 07/19/2024 9:07 AM EST [facility] Blood Capillary blood specimen / Unknown 07/19/2024 9:07 AM EST 07/19/2024 9:09 AM EST Estate Sade GUERRERO LAB POINT OF CARE TE ST DOCKED DEVICE UNSOLICITED RESULTS Final Result [facility] [address] [place] [address], [place] [phone] * (ABNORMAL) CBC auto differential (07/19/2024 7:55 AM EST) [facility] WBC 25.0(H) 4.8 - 10.8 K/mcL LAB HEMETOLOGY METHOD 07/19/2024 8:36 AM [facility] RBC 2.80(L) 3.80 - 4.80 M/mcL LAB HEMETOLOGY METHOD 07/19/2024 8:36 AM [facility] Hemoglobin 7.0(L) 11.5 - 16.0 g/dL LAB HEMETOLOGY METHOD 07/19/2024 8:36 AM [facility] Hematocrit 22.2(L) 35.0 - 47.0 % LAB HEMETOLOGY METHOD 07/19/2024 8:36 AM [facility] MCV 79.0 79.0 - 98.0 FL LAB HEMETOLOGY METHOD 07/19/2024 8:36 AM [facility] MCH 24.9(L) 27.0 - 32.0 pcg LAB HEMETOLOGY METHOD 07/19/2024 8:36 AM EST [facility] MCHC 31.5(L) 32.0 - 37.0 g/dL LAB HEMETOLOGY METHOD 07/19/2024 8:36 AM [facility] RDW 23.9(H) 11.0 - 15.0 % LAB HEMETOLOGY METHOD 07/19/2024 8:36 AM [facility] Platelets 218 130 - 400 K/mcL LAB HEMETOLOGY METHOD 07/19/2024 8:36 AM [facility] MPV 10.6 7.0 - 11.0 FL LAB HEMETOLOGY METHOD 07/19/2024 8:36 AM [facility] NRBC 0.0 <1.0 % LAB HEMETOLOGY METHOD 07/19/2024 8:36 AM [facility] NRBC Absolute 0.00 <0.10 K/mcL LAB HEMETOLOGY METHOD 07/19/2024 8:36 AM [facility] Neutrophils Relative 87.6 % LAB HEMETOLOGY METHOD 07/19/2024 8:36 AM [facility] Comment:This is an appended report. These results have been appended to a previously preliminary verified report. Lymphocytes Relative 3.0 % LAB HEMETOLOGY METHOD 07/19/2024 8:36 AM [facility] Comment:This is an appended report. These results have been appended to a previously preliminary verified report. Monocytes Relative 4.6 % LAB HEMETOLOGY METHOD 07/19/2024 8:36 AM [facility] Comment:This is an appended report. These results have been appended to a previously preliminary verified report. Eosinophils Relative 3.0 % LAB HEMETOLOGY METHOD 07/19/2024 8:36 AM [facility] Comment:This is an appended report. These results have been appended to a previously preliminary verified report. Basophils Relative 0.2 % LAB HEMETOLOGY METHOD 07/19/2024 8:36 AM [facility] Comment:This is an appended report. These results have been appended to a previously preliminary verified report. Immature Granulocytes Relative 1.6 % LAB HEMETOLOGY METHOD 07/19/2024 8:36 AM [facility] Comment:This is an appended report. These results have been appended to a previously preliminary verified report. Neutrophils Absolute 21.89(H) 1.50 - 7.00 K/mcL LAB HEMETOLOGY METHOD 07/19/2024 8:36 AM [facility] Comment:This is an appended report. These results have been appended to a previously preliminary verified report. Lymphocytes Absolute 0.76(L) 1.00 - 5.00 K/mcL LAB HEMETOLOGY METHOD 07/19/2024 8:36 AM [facility] Comment:This is an appended report. These results have been appended to a previously preliminary verified report. Monocytes Absolute 1.14(H) 0.20 - 1.00 K/mcL LAB HEMETOLOGY METHOD 07/19/2024 8:36 AM [facility] Comment:This is an appended report. These results have been appended to a previously preliminary verified report. Eosinophils Absolute 0.76(H) 0.00 - 0.50 K/mcL LAB HEMETOLOGY METHOD 07/19/2024 8:36 AM [facility] Comment:This is an appended report. These results have been appended to a previously preliminary verified report. Basophils Absolute 0.05 0.00 - 0.20 K/mcL LAB HEMETOLOGY METHOD 07/19/2024 8:36 AM [facility] Comment:This is an appended report. These results have been appended to a previously preliminary verified report. Immature Granulocytes Absolute 0.40(H) 0.00 - 0.03 K/mcL LAB HEMETOLOGY METHOD 07/19/2024 8:36 AM [facility] Comment:This is an appended report. These results have been appended to a previously preliminary verified report. Blood Venous blood specimen / Unknown Venipuncture / Unknown 07/19/2024 7:55 AM EST 07/19/2024 7:55 AM EST Lencho Stuart MD LAB BLOOD ORDERABLES Final R esult Performing Organization Address [facility]/ZIP Co de Phone Number [facility] [address] [place] [address], * (ABNORMAL) Parathyroid hormone related protein (07/19/2024 7:55 AM EST) [facility] PTH-related Protein (PTHrP) 24(H) 11 - 20 pg/mL 07/26/2024 4:37 PM EST [facility] Comment: This is a C-terminal PTH-RP assay. PTH-RP is useful in the differential diagnosis of hypercalcemia and levels may be elevated in patients with tumor-associated hypercalcemia. Elevated results may also be observed in patients with renal disease. This test was developed and its analytical performance characteristics have been determined by [facility]. It has not been cleared or approved by FDA. This assay has been validated pursuant to the CLIA regulations and is used for clinical purposes. Test Performed at: [facility] [address] ??[id number] ? I Bethany GUERRERO, PhD, NINA Blood Venous blood specimen / Unknown Venipuncture / Unknown 07/19/2024 7:55 AM EST 07/19/2024 7:55 AM EST Jesus Manuel [place] [facility] BLOOD ORDERABLES Final Resu lt [facility] [address] [place] [address] * (ABNORMAL) Anti-neutrophilic cytoplasmic antibody (07/19/2024 6:52 AM EST) [facility] Myeloperoxidase Ab Negative Negative LAB CHEMISTRY METHOD 07/20/2024 12:10 PM EST [facility] Myeloperoxidase Ab, Quant 1 <=20 units LAB CHEMISTRY METHOD 07/20/2024 12:10 PM EST [facility] Proteinase-3 Ab Positive(A ) Negative LAB CHEMISTRY METHOD 07/20/2024 12:10 PM EST [facility] Proteinase-3 Ab Quant 165(H) <=20 units LAB CHEMISTRY METHOD 07/20/2024 12:10 PM EST [facility] Blood Venous blood specimen / Unknown Venipuncture / Unknown 07/19/2024 6:52 AM EST 07/19/2024 7:21 AM EST Miguel Quiles MD LAB BLOOD ORDERABLES Final Res ult Performing Organization Address [facility]/ZIP Co de Phone Number [facility] [address] [place] [address], [place] [phone] * Anti-Xa - Every 6 Hours (07/19/2024 6:52 AM EST) Heparin Anti-Xa 0.37 0.30 - 0.70 I Unit/mL LAB COAGULATION METHOD 07/19/2024 7:38 AM EST [facility] Blood Venous blood specimen / Unknown Venipuncture / Unknown 07/19/2024 6:52 AM EST 07/19/2024 7:21 AM EST Narrative [facility] - 07/19/2024 7:38 AM EST Therapeutic range listed is for Unfractionated Heparin. LMW Heparin therapeutic range: 0.50-1.20 IU/mL Lencho Stuart MD LAB BLOOD ORDERABLES Final R esult Performing Organization Address City/[facility]/ZIP Co de Phone Number [facility] [address] [place] [address], [place] [phone] * (ABNORMAL) Basic metabolic panel (07/19/2024 6:52 AM EST) Sodium 128(L) 133 - 145 mmol/L LAB CHEMISTRY METHOD 07/19/2024 8:56 AM [facility] Potassium 4.9 3.5 - 5.5 mmol/L LAB CHEMISTRY METHOD 07/19/2024 8:56 AM [facility] Chloride 93(L) 96 - 110 mmol/L LAB CHEMISTRY METHOD 07/19/2024 8:56 AM [facility] CO2 28 21 - 32 mmol/L LAB CHEMISTRY METHOD 07/19/2024 8:56 AM [facility] Anion Gap 7 3 - 11 LAB CHEMISTRY METHOD 07/19/2024 8:56 AM [facility] Glucose 170(H) 70 - 100 mg/dL LAB CHEMISTRY METHOD 07/19/2024 8:56 AM [facility] BUN 83(H) 5 - 25 mg/dL LAB CHEMISTRY METHOD 07/19/2024 8:56 AM [facility] Creatinine 5.96(H) 0.50 - 1.10 mg/dL LAB CHEMISTRY METHOD 07/19/2024 8:56 AM [facility] eGFR 7(L) >=60 mL/min/1. 73m2 LAB CHEMISTRY METHOD 07/19/2024 8:56 AM [facility] Comment:Calculation based on the??Chronic Kidney Disease Epidemiology Collaboration (CKD-EPI) equation refit??without adjustment for race. BUN/Creatinine Ratio 13.9 LAB CHEMISTRY METHOD 07/19/2024 8:56 AM [facility] Calcium 7.7(L) 8.5 - 10.5 mg/dL LAB CHEMISTRY METHOD 07/19/2024 8:56 AM [facility] Blood Venous blood specimen / Unknown Venipuncture / Unknown 07/19/2024 6:52 AM EST 07/19/2024 7:21 AM EST us Estate Sade GUERRERO LAB BLOOD ORDERABLES Final R esult [facility] [address] [place] [address], [place] [phone] * (ABNORMAL) POCT Glucose, blood (07/18/2024 8:27 PM EST) Glucose POCT 193(H) 70 - 100 mg/dL 07/18/2024 8:27 PM EST [facility] Blood Capillary blood specimen / Unknown 07/18/2024 8:27 PM EST 07/18/2024 8:28 PM EST Lencho Stuart MD LAB POINT OF CARE TE ST DOCKED DEVICE UNSOLICITED RESULTS Final Result Performing Organization Address [facility]/ZIP Co de Phone Number [facility] [address] [place] [address], [place] [phone] * Anti-Xa - Every 6 Hours (07/18/2024 6:07 PM EST) [facility] Heparin Anti-Xa 0.42 0.30 - 0.70 I Unit/mL LAB COAGULATION METHOD 07/18/2024 7:21 PM EST [facility] Blood Venous blood specimen / Unknown Venipuncture / Unknown 07/18/2024 6:07 PM EST 07/18/2024 7:00 PM EST Narrative [facility] - 07/18/2024 7:21 PM EST Therapeutic range listed is for Unfractionated Heparin. LMW Heparin therapeutic range: 0.50-1.20 IU/mL Kwesi Guido MD LAB BLOOD ORDERABLES F inal Result [facility] [address] [place] [address], [place] [phone] * (ABNORMAL) POCT Glucose, blood (07/18/2024 4:00 PM EST) Glucose POCT 210(H) 70 - 100 mg/dL 07/18/2024 4:01 PM EST [facility] Blood Capillary blood specimen / Unknown 07/18/2024 4:00 PM EST 07/18/2024 4:02 PM EST Lencho Stuart MD LAB POINT OF CARE TE ST DOCKED DEVICE UNSOLICITED RESULTS Final Result Performing Organization Address [facility]/ZIP Co de Phone Number [facility] [address] [place] [address], [place] [phone] * Anti-Xa - Every 6 Hours (07/18/2024 12:43 PM EST) Heparin Anti-Xa 0.39 0.30 - 0.70 I Unit/mL LAB COAGULATION METHOD 07/18/2024 1:15 PM EST [facility] Blood Venous blood specimen / Unknown Venipuncture / Unknown 07/18/2024 12:43 PM EST 07/18/2024 12:49 PM EST Narrative [facility] - 07/18/2024 1:15 PM EST Therapeutic range listed is for Unfractionated Heparin. LMW Heparin therapeutic range: 0.50-1.20 IU/mL Kwesi Guido MD LAB BLOOD ORDERABLES F inal Result Performing Organization Address City/[facility]/ZIP Co de Phone Number [facility] [address] [place] [address], [place] [phone] * (ABNORMAL) POCT Glucose, blood (07/18/2024 11:17 AM EST) Glucose POCT 244(H) 70 - 100 mg/dL 07/18/2024 11:19 AM EST [facility] Blood Capillary blood specimen / Unknown 07/18/2024 11:17 AM EST 07/18/2024 11:21 AM EST Lencho Stuart MD LAB POINT OF CARE TE ST DOCKED DEVICE UNSOLICITED RESULTS Final Result Performing Organization Address [facility] Co de Phone Number [facility] [address] [place] [address], [place] [phone] * (ABNORMAL) POCT Glucose, blood (07/18/2024 7:54 AM EST) Glucose POCT 219(H) 70 - 100 mg/dL 07/18/2024 7:54 AM EST [facility] Blood Capillary blood specimen / Unknown 07/18/2024 7:54 AM EST 07/18/2024 7:56 AM EST Lencho Stuart MD LAB POINT OF CARE TE ST DOCKED DEVICE UNSOLICITED RESULTS Final Result Performing Organization Address [facility] de Phone Number [facility] [address] [place] [address], [place] [phone] * Robertson urine culture tube (07/18/2024 6:10 AM EST) Extra Tube Hold for add-ons. 07/18/2024 8:01 AM EST [facility] Comment:Auto resulted. Urine Urine specimen obtained by clean catch procedure / Unknown 07/18/2024 6:10 AM EST 07/18/2024 6:37 AM EST Lencho Stuart MD LAB URINE ORDERABLES Final R esult Performing Organization Address [facility]/ZIP Co de Phone Number [facility] [address] [place] [address], [place] [phone] * (ABNORMAL) Urinalysis microscopic only (07/18/2024 6:09 AM EST) RBC, Urine 10(H) 0 - 4 /HPF 07/18/2024 7:53 AM EST [facility] WBC, Urine >100(H) 0 - 4 /HPF 07/18/2024 7:53 AM [facility] Squamous Epithelial, Urine 10 0 - 60 /LPF 07/18/2024 7:53 AM [facility] Non-Squamous Epithelial, Urine 2-5 Transitional epithelial cells. /LPF 07/18/2024 7:53 AM [facility] Bacteria, Urine Many(A) Negative /HPF 07/18/2024 7:53 AM [facility] Other Casts, Urine Rare Coarse Granular casts. /LPF 07/18/2024 7:53 AM [facility] Urine Indwelling urinary catheter / Unknown Non-blood Collection / Unknown 07/18/2024 6:09 AM EST 07/18/2024 6:36 AM EST us Kwesi Guido MD LAB URINE ORDERABLES F inal Result Performing Organization Address [facility]/ZIP Co de Phone Number [facility] [address] [place] [address], [place] [phone] * Anti-Xa - Every 6 Hours (07/18/2024 6:07 AM EST) Heparin Anti-Xa 0.34 0.30 - 0.70 I Unit/mL LAB COAGULATION METHOD 07/18/2024 7:02 AM [facility] Blood Venous blood specimen / Unknown 07/18/2024 6:07 AM EST 07/18/2024 6:34 AM EST Narrative [facility] - 07/18/2024 7:02 AM EST Therapeutic range listed is for Unfractionated Heparin. LMW Heparin therapeutic range: 0.50-1.20 IU/mL us Kwesi Guido MD LAB BLOOD ORDERABLES F inal Result [facility] [address] [place] [address], * (ABNORMAL) CBC auto differential (07/18/2024 6:07 AM EST) [facility] Signature WBC 25.5(H) 4.8 - 10.8 K/mcL LAB HEMETOLOGY METHOD 07/18/2024 7:23 AM [facility] RBC 3.20(L) 3.80 - 4.80 M/mcL LAB HEMETOLOGY METHOD 07/18/2024 7:23 AM [facility] Hemoglobin 7.8(L) 11.5 - 16.0 g/dL LAB HEMETOLOGY METHOD 07/18/2024 7:23 AM [facility] Hematocrit 24.9(L) 35.0 - 47.0 % LAB HEMETOLOGY METHOD 07/18/2024 7:23 AM [facility] MCV 77.6(L) 79.0 - 98.0 FL LAB HEMETOLOGY METHOD 07/18/2024 7:23 AM [facility] MCH 24.3(L) 27.0 - 32.0 pcg LAB HEMETOLOGY METHOD 07/18/2024 7:23 AM [facility] MCHC 31.3(L) 32.0 - 37.0 g/dL LAB HEMETOLOGY METHOD 07/18/2024 7:23 AM [facility] RDW 24.1(H) 11.0 - 15.0 % LAB HEMETOLOGY METHOD 07/18/2024 7:23 AM [facility] Platelets 242 130 - 400 K/mcL LAB HEMETOLOGY METHOD 07/18/2024 7:23 AM [facility] MPV 9.6 7.0 - 11.0 FL LAB HEMETOLOGY METHOD 07/18/2024 7:23 AM [facility] NRBC 0.0 <1.0 % LAB HEMETOLOGY METHOD 07/18/2024 7:23 AM [facility] NRBC Absolute 0.00 <0.10 K/mcL LAB HEMETOLOGY METHOD 07/18/2024 7:23 AM [facility] Neutrophils Relative 89.3 % LAB HEMETOLOGY METHOD 07/18/2024 7:23 AM [facility] Comment:This is an appended report. These results have been appended to a previously preliminary verified report. Lymphocytes Relative 2.8 % LAB HEMETOLOGY METHOD 07/18/2024 7:23 AM [facility] Comment:This is an appended report. These results have been appended to a previously preliminary verified report. Monocytes Relative 4.2 % LAB HEMETOLOGY METHOD 07/18/2024 7:23 AM [facility] Comment:This is an appended report. These results have been appended to a previously preliminary verified report. Eosinophils Relative 1.9 % LAB HEMETOLOGY METHOD 07/18/2024 7:23 AM [facility] Comment:This is an appended report. These results have been appended to a previously preliminary verified report. Basophils Relative 0.2 % LAB HEMETOLOGY METHOD 07/18/2024 7:23 AM [facility] Comment:This is an appended report. These results have been appended to a previously preliminary verified report. Immature Granulocytes Relative 1.6 % LAB HEMETOLOGY METHOD 07/18/2024 7:23 AM [facility] Comment:This is an appended report. These results have been appended to a previously preliminary verified report. Neutrophils Absolute 22.74(H) 1.50 - 7.00 K/mcL LAB HEMETOLOGY METHOD 07/18/2024 7:23 AM [facility] Comment:This is an appended report. These results have been appended to a previously preliminary verified report. Lymphocytes Absolute 0.72(L) 1.00 - 5.00 K/mcL LAB HEMETOLOGY METHOD 07/18/2024 7:23 AM EST [facility] Comment:This is an appended report. These results have been appended to a previously preliminary verified report. Monocytes Absolute 1.06(H) 0.20 - 1.00 K/mcL LAB HEMETOLOGY METHOD 07/18/2024 7:23 AM EST [facility] Comment:This is an appended report. These results have been appended to a previously preliminary verified report. Eosinophils Absolute 0.49 0.00 - 0.50 K/mcL LAB HEMETOLOGY METHOD 07/18/2024 7:23 AM EST [facility] Comment:This is an appended report. These results have been appended to a previously preliminary verified report. Basophils Absolute 0.04 0.00 - 0.20 [facility] 07/18/2024 7:23 AM EST [facility] Comment:This is an appended report. These results have been appended to a previously preliminary verified report. Immature Granulocytes Absolute 0.41(H) 0.00 - 0.03 [facility] LAB HEMETOLOGY METHOD 07/18/2024 7:23 AM EST [facility] Comment:This is an appended report. These results have been appended to a previously preliminary verified report. Blood Venous blood specimen / Unknown Venipuncture / Unknown 07/18/2024 6:07 AM EST 07/18/2024 7:16 AM EST us Kwesi Guido MD LAB BLOOD ORDERABLES F inal Result [facility] [address] [place] [address], * (ABNORMAL) Calcium, ionized (07/18/2024 6:07 AM EST) Calcium Ionized 4.28(L) 4.50 - 5.30 mg/dL 07/18/2024 6:46 AM [facility] Blood Venous blood specimen / Unknown 07/18/2024 6:07 AM EST 07/18/2024 6:33 AM EST Kwesi Guido MD LAB BLOOD ORDERABLES F inal Result [facility] [address] [place] [address], * (ABNORMAL) Basic metabolic panel (07/18/2024 6:07 AM EST) Sodium 132(L) 133 - 145 mmol/L LAB CHEMISTRY METHOD 07/18/2024 7:48 AM [facility] Potassium 4.4 3.5 - 5.5 mmol/L LAB CHEMISTRY METHOD 07/18/2024 7:48 AM [facility] Chloride 95(L) 96 - 110 mmol/L LAB CHEMISTRY METHOD 07/18/2024 7:48 AM [facility] CO2 27 21 - 32 mmol/L LAB CHEMISTRY METHOD 07/18/2024 7:48 AM [facility] Anion Gap 10 3 - 11 LAB CHEMISTRY METHOD 07/18/2024 7:48 AM [facility] Glucose 225(H) 70 - 100 mg/dL LAB CHEMISTRY METHOD 07/18/2024 7:48 AM [facility] BUN 67(H) 5 - 25 mg/dL LAB CHEMISTRY METHOD 07/18/2024 7:48 AM [facility] Creatinine 4.92(H) 0.50 - 1.10 mg/dL LAB CHEMISTRY METHOD 07/18/2024 7:48 AM [facility] eGFR 8(L) >=60 mL/min/1. 73m2 LAB CHEMISTRY METHOD 07/18/2024 7:48 AM [facility] Comment:Calculation based on the??Chronic Kidney Disease Epidemiology Collaboration (CKD-EPI) equation refit??without adjustment for race. BUN/Creatinine Ratio 13.6 LAB CHEMISTRY METHOD 07/18/2024 7:48 AM EST [facility] Calcium 7.5(L) 8.5 - 10.5 mg/dL LAB CHEMISTRY METHOD 07/18/2024 7:48 AM EST [facility] Blood Venous blood specimen / Unknown 07/18/2024 6:07 AM EST 07/18/2024 6:34 AM EST us Kwesi Guido MD LAB BLOOD ORDERABLES F inal Result Performing Organization Address [facility]/ZIP Co de Phone Number [facility] [address] [place] [address], [place] [phone] * (ABNORMAL) Anti-Xa - Every 6 Hours (07/18/2024 12:19 AM EST) Heparin Anti-Xa 0.19(L) 0.30 - 0.70 I Unit/mL LAB COAGULATION METHOD 07/18/2024 12:48 AM EST [facility] Blood Venous blood specimen / Unknown Venipuncture / Unknown 07/18/2024 12:19 AM EST 07/18/2024 12:38 AM EST Narrative [facility] - 07/18/2024 12:48 AM EST Therapeutic range listed is for Unfractionated Heparin. LMW Heparin therapeutic range: 0.50-1.20 IU/mL us Kwesi Guido MD LAB BLOOD ORDERABLES F inal Result [facility] [address] [place] [address], [place] [phone] * (ABNORMAL) POCT Glucose, blood (07/17/2024 9:12 PM EST) Glucose POCT 240(H) 70 - 100 mg/dL 07/17/2024 9:13 PM EST [facility] Blood Capillary blood specimen / Unknown 07/17/2024 9:12 PM EST 07/17/2024 9:14 PM EST us Kwesi Guido MD LAB POINT OF C ARE TEST DOCKED DEVICE UNSOLICITED RESULTS Final Result Performing Organization Address [facility]/ZIP Co de Phone Number [facility] [address] [place] [address], [place] [phone] * Anti-Xa - Every 6 Hours (07/17/2024 6:37 PM EST) Heparin Anti-Xa 0.30 0.30 - 0.70 I Unit/mL LAB COAGULATION METHOD 07/17/2024 7:18 PM EST [facility] Blood Venous blood specimen / Unknown Venipuncture / Unknown 07/17/2024 6:37 PM EST 07/17/2024 7:06 PM EST Narrative [facility] - 07/17/2024 7:18 PM EST Therapeutic range listed is for Unfractionated Heparin. LMW Heparin therapeutic range: 0.50-1.20 IU/mL us Kwesi Guido MD LAB BLOOD ORDERABLES F inal Result Performing Organization Address City/[facility]/ZIP Co de Phone Number [facility] [address] [place] [address], [place] [phone] * (ABNORMAL) POCT Glucose, blood (07/17/2024 4:15 PM EST) Glucose POCT 238(H) 70 - 100 mg/dL 07/17/2024 4:16 PM EST [facility] Blood Capillary blood specimen / Unknown 07/17/2024 4:15 PM EST 07/17/2024 4:17 PM EST us Kwesi Guido MD LAB POINT OF C ARE TEST DOCKED DEVICE UNSOLICITED RESULTS Final Result [facility] [address] [place] [address], [place] [phone] * Anti-Xa - Every 6 Hours (07/17/2024 12:29 PM EST) [facility] Heparin Anti-Xa 0.37 0.30 - 0.70 I Unit/mL LAB COAGULATION METHOD 07/17/2024 1:11 PM EST [facility] Blood Venous blood specimen / Unknown Venipuncture / Unknown 07/17/2024 12:29 PM EST 07/17/2024 12:35 PM EST Narrative [facility] - 07/17/2024 1:11 PM EST Therapeutic range listed is for Unfractionated Heparin. LMW Heparin therapeutic range: 0.50-1.20 IU/mL us Kwesi Guido MD LAB BLOOD ORDERABLES F inal Result Performing Organization Address [facility]/ZIP Co de Phone Number [facility] [address] [place] [address], [place] [phone] * (ABNORMAL) POCT Glucose, blood (07/17/2024 11:19 AM EST) [facility] Glucose POCT 307(H) 70 - 100 mg/dL 07/17/2024 11:25 AM EST [facility] Blood Capillary blood specimen / Unknown 07/17/2024 11:19 AM EST 07/17/2024 11:26 AM EST us Kwesi Guido MD LAB POINT OF C ARE TEST DOCKED DEVICE UNSOLICITED RESULTS Final Result [facility] [address] [place] [address], [place] [phone] * (ABNORMAL) POCT Glucose, blood (07/17/2024 7:57 AM EST) [facility] Glucose POCT 258(H) 70 - 100 mg/dL 07/17/2024 7:58 AM EST [facility] Blood Capillary blood specimen / Unknown 07/17/2024 7:57 AM EST 07/17/2024 7:59 AM EST us Kwesi Guido MD LAB POINT OF C ARE TEST DOCKED DEVICE UNSOLICITED RESULTS Final Result Performing Organization Address [facility]/ZIP Co de Phone Number [facility] [address] [place] [address], [place] [phone] * (ABNORMAL) Anti-Xa - Every 6 Hours (07/17/2024 6:30 AM EST) [facility] Heparin Anti-Xa 0.20(L) 0.30 - 0.70 I Unit/mL LAB COAGULATION METHOD 07/17/2024 7:43 AM EST [facility] Blood Venous blood specimen / Unknown Venipuncture / Unknown 07/17/2024 6:30 AM EST 07/17/2024 7:06 AM EST Narrative [facility] - 07/17/2024 7:43 AM EST Therapeutic range listed is for Unfractionated Heparin. LMW Heparin therapeutic range: 0.50-1.20 IU/mL us Kwesi Guido MD LAB BLOOD ORDERABLES F inal Result [facility] [address] [place] [address], [place] [phone] * (ABNORMAL) CBC auto differential (07/17/2024 6:30 AM EST) [facility] WBC 23.0(H) 4.8 - 10.8 K/mcL LAB HEMETOLOGY METHOD 07/17/2024 8:50 AM [facility] RBC 3.30(L) 3.80 - 4.80 M/mcL LAB HEMETOLOGY METHOD 07/17/2024 8:50 AM [facility] Hemoglobin 8.0(L) 11.5 - 16.0 g/dL LAB HEMETOLOGY METHOD 07/17/2024 8:50 AM [facility] Hematocrit 25.6(L) 35.0 - 47.0 % LAB HEMETOLOGY METHOD 07/17/2024 8:50 AM [facility] MCV 78.5(L) 79.0 - 98.0 FL LAB HEMETOLOGY METHOD 07/17/2024 8:50 AM [facility] MCH 24.5(L) 27.0 - 32.0 pcg LAB HEMETOLOGY METHOD 07/17/2024 8:50 AM [facility] MCHC 31.3(L) 32.0 - 37.0 g/dL LAB HEMETOLOGY METHOD 07/17/2024 8:50 AM [facility] RDW 23.9(H) 11.0 - 15.0 % LAB HEMETOLOGY METHOD 07/17/2024 8:50 AM [facility] Platelets 252 130 - 400 K/mcL LAB HEMETOLOGY METHOD 07/17/2024 8:50 AM [facility] MPV 9.9 7.0 - 11.0 FL LAB HEMETOLOGY METHOD 07/17/2024 8:50 AM [facility] NRBC 0.0 <1.0 % LAB HEMETOLOGY METHOD 07/17/2024 8:50 AM [facility] NRBC Absolute 0.00 <0.10 K/mcL LAB HEMETOLOGY METHOD 07/17/2024 8:50 AM [facility] Neutrophils Relative 90.9 % LAB HEMETOLOGY METHOD 07/17/2024 8:50 AM [facility] Lymphocytes Relative 2.6 % LAB HEMETOLOGY METHOD 07/17/2024 8:50 AM [facility] Monocytes Relative 4.8 % LAB HEMETOLOGY METHOD 07/17/2024 8:50 AM [facility] Eosinophils Relative 0.5 % LAB HEMETOLOGY METHOD 07/17/2024 8:50 AM [facility] Basophils Relative 0.1 % LAB HEMETOLOGY METHOD 07/17/2024 8:50 AM [facility] Immature Granulocytes Relative 1.1 % LAB HEMETOLOGY METHOD 07/17/2024 8:50 AM [facility] Neutrophils Absolute 20.92(H) 1.50 - 7.00 K/mcL LAB HEMETOLOGY METHOD 07/17/2024 8:50 AM [facility] Lymphocytes Absolute 0.60(L) 1.00 - 5.00 K/mcL LAB HEMETOLOGY METHOD 07/17/2024 8:50 AM [facility] Monocytes Absolute 1.11(H) 0.20 - 1.00 K/mcL LAB HEMETOLOGY METHOD 07/17/2024 8:50 AM [facility] Eosinophils Absolute 0.11 0.00 - 0.50 K/mcL LAB HEMETOLOGY METHOD 07/17/2024 8:50 AM [facility] Basophils Absolute 0.03 0.00 - 0.20 K/mcL LAB HEMETOLOGY METHOD 07/17/2024 8:50 AM [facility] Immature Granulocytes Absolute 0.26(H) 0.00 - 0.03 K/mcL LAB HEMETOLOGY METHOD 07/17/2024 8:50 AM [facility] Blood Venous blood specimen / Unknown Venipuncture / Unknown 07/17/2024 6:30 AM EST 07/17/2024 7:06 AM EST us Kwesi Guido MD LAB BLOOD ORDERABLES F inal Result [facility] [address] [place] [address], * (ABNORMAL) CBC - Every 3 Days (07/17/2024 6:30 AM EST) WBC 23.0(H) 4.8 - 10.8 K/mcL LAB HEMETOLOGY METHOD 07/17/2024 8:12 AM [facility] RBC 3.30(L) 3.80 - 4.80 M/mcL LAB HEMETOLOGY METHOD 07/17/2024 8:12 AM [facility] Hemoglobin 8.0(L) 11.5 - 16.0 g/dL LAB HEMETOLOGY METHOD 07/17/2024 8:12 AM [facility] Hematocrit 25.6(L) 35.0 - 47.0 % LAB HEMETOLOGY METHOD 07/17/2024 8:12 AM [facility] MCV 78.5(L) 79.0 - 98.0 FL LAB HEMETOLOGY METHOD 07/17/2024 8:12 AM [facility] MCH 24.5(L) 27.0 - 32.0 pcg LAB HEMETOLOGY METHOD 07/17/2024 8:12 AM [facility] MCHC 31.3(L) 32.0 - 37.0 g/dL LAB HEMETOLOGY METHOD 07/17/2024 8:12 AM [facility] RDW 23.9(H) 11.0 - 15.0 % LAB HEMETOLOGY METHOD 07/17/2024 8:12 AM [facility] Platelets 252 130 - 400 K/mcL LAB HEMETOLOGY METHOD 07/17/2024 8:12 AM EST [facility] MPV 9.9 7.0 - 11.0 FL LAB HEMETOLOGY METHOD 07/17/2024 8:12 AM EST [facility] NRBC 0.0 <1.0 % LAB HEMETOLOGY METHOD 07/17/2024 8:12 AM EST [facility] NRBC Absolute 0.00 <0.10 K/mcL LAB HEMETOLOGY METHOD 07/17/2024 8:12 AM EST [facility] Blood Venous blood specimen / Unknown Venipuncture / Unknown 07/17/2024 6:30 AM EST 07/17/2024 7:06 AM EST us Kwesi Guido MD LAB BLOOD ORDERABLES F inal Result [facility] [address] [place] [address], [place] [phone] * Phosphorus (07/17/2024 6:30 AM EST) Phosphorus 2.9 2.5 - 4.5 mg/dL LAB CHEMISTRY METHOD 07/17/2024 8:09 AM EST [facility] Blood Venous blood specimen / Unknown Venipuncture / Unknown 07/17/2024 6:30 AM EST 07/17/2024 7:06 AM EST us Kwesi Guido MD LAB BLOOD ORDERABLES F inal Result [facility] [address] [place] [address], [place] [phone] * Magnesium (07/17/2024 6:30 AM EST) Magnesium 2.2 1.9 - 2.6 mg/dL LAB CHEMISTRY METHOD 07/17/2024 8:09 AM [facility] Blood Venous blood specimen / Unknown Venipuncture / Unknown 07/17/2024 6:30 AM EST 07/17/2024 7:06 AM EST us Kwesi Guido MD LAB BLOOD ORDERABLES F inal Result [facility] [address] [place] [address], * (ABNORMAL) Basic metabolic panel (07/17/2024 6:30 AM EST) Sodium 133 133 - 145 mmol/L LAB CHEMISTRY METHOD 07/17/2024 8:09 AM [facility] Potassium 3.8 3.5 - 5.5 mmol/L LAB CHEMISTRY METHOD 07/17/2024 8:09 AM [facility] Chloride 96 96 - 110 mmol/L LAB CHEMISTRY METHOD 07/17/2024 8:09 AM [facility] CO2 26 21 - 32 mmol/L LAB CHEMISTRY METHOD 07/17/2024 8:09 AM [facility] Anion Gap 11 3 - 11 LAB CHEMISTRY METHOD 07/17/2024 8:09 AM [facility] Glucose 293(H) 70 - 100 mg/dL LAB CHEMISTRY METHOD 07/17/2024 8:09 AM [facility] BUN 53(H) 5 - 25 mg/dL LAB CHEMISTRY METHOD 07/17/2024 8:09 AM [facility] Creatinine 4.03(H) 0.50 - 1.10 mg/dL LAB CHEMISTRY METHOD 07/17/2024 8:09 AM [facility] eGFR 11(L) >=60 mL/min/1. 73m2 LAB CHEMISTRY METHOD 07/17/2024 8:09 AM [facility] Comment:Calculation based on the??Chronic Kidney Disease Epidemiology Collaboration (CKD-EPI) equation refit??without adjustment for race. BUN/Creatinine Ratio 13.2 LAB CHEMISTRY METHOD 07/17/2024 8:09 AM EST [facility] Calcium 7.7(L) 8.5 - 10.5 mg/dL LAB CHEMISTRY METHOD 07/17/2024 8:09 AM EST [facility] Blood Venous blood specimen / Unknown Venipuncture / Unknown 07/17/2024 6:30 AM EST 07/17/2024 7:06 AM EST us Kwesi Guido MD LAB BLOOD ORDERABLES F inal Result Performing Organization Address [facility]/ZIP Co de Phone Number [facility] [address] [place] [address], [place] [phone] * (ABNORMAL) Anti-Xa - Every 6 Hours (07/17/2024 12:16 AM EST) Heparin Anti-Xa 0.14(L) 0.30 - 0.70 I Unit/mL LAB COAGULATION METHOD 07/17/2024 12:45 AM EST [facility] Blood Venous blood specimen / Unknown Venipuncture / Unknown 07/17/2024 12:16 AM EST 07/17/2024 12:35 AM EST Narrative [facility] - 07/17/2024 12:45 AM EST Therapeutic range listed is for Unfractionated Heparin. LMW Heparin therapeutic range: 0.50-1.20 IU/mL us Kwesi Guido MD LAB BLOOD ORDERABLES F inal Result [facility] [address] [place] [address], [place] [phone] * (ABNORMAL) POCT Glucose, blood (07/16/2024 8:30 PM EST) Glucose POCT 263(H) 70 - 100 mg/dL 07/16/2024 8:31 PM EST [facility] Blood Capillary blood specimen / Unknown 07/16/2024 8:30 PM EST 07/16/2024 8:33 PM EST us Kwesi Guido MD LAB POINT OF C ARE TEST DOCKED DEVICE UNSOLICITED RESULTS Final Result Performing Organization Address [facility]/ZIP Co de Phone Number [facility] [address] [place] [address], [place] [phone] * (ABNORMAL) Anti-Xa - STAT (07/16/2024 5:50 PM EST) Heparin Anti-Xa <0.04(L) 0.30 - 0.70 I Unit/mL LAB COAGULATION METHOD 07/16/2024 6:18 PM EST [facility] Blood Venous blood specimen / Unknown Venipuncture / Unknown 07/16/2024 5:50 PM EST 07/16/2024 6:01 PM EST Narrative [facility] - 07/16/2024 6:18 PM EST Therapeutic range listed is for Unfractionated Heparin. LMW Heparin therapeutic range: 0.50-1.20 IU/mL us Kwesi Guido MD LAB BLOOD ORDERABLES F inal Result [facility] [address] [place] [address], [place] [phone] * Activated Partial Thromboplastin Time - STAT (07/16/2024 5:50 PM EST) aPTT 31.3 24.1 - 39.3 sec LAB COAGULATION METHOD 07/16/2024 6:13 PM EST [facility] Blood Venous blood specimen / Unknown Venipuncture / Unknown 07/16/2024 5:50 PM EST 07/16/2024 6:01 PM EST us Kwesi Guido MD LAB BLOOD ORDERABLES F inal Result Performing Organization Address [facility] Co de Phone Number [facility] [address] [place] [address], [place] [phone] * (ABNORMAL) POCT Glucose, blood (07/16/2024 4:28 PM EST) Glucose POCT 170(H) 70 - 100 mg/dL 07/16/2024 4:31 PM EST [facility] Blood Capillary blood specimen / Unknown 07/16/2024 4:28 PM EST 07/16/2024 4:32 PM EST us Kwesi Guido MD LAB POINT OF C ARE TEST DOCKED DEVICE UNSOLICITED RESULTS Final Result Performing Organization Address [facility] de Phone Number [facility] [address] [place] [address], [place] [phone] * Vascular US duplex lower extremity venous [...] Signed Date: 07/16/2024 12:33 ET Workstation ID: [id number] Transcribed By: Self Edit Transcribed Date: 07/16/2024 [...] Signed Date: 07/16/2024 12:33 ET Workstation ID: [id number] Transcribed By: Self Edit Transcribed Date: 07/16/2024 12:28 ET us Kwesi Guido MD CV VASCULAR PROCEDURES Final Result * (ABNORMAL) POCT Glucose, blood (07/16/2024 10:42 AM EST) Glucose POCT 105(H) 70 - 100 mg/dL 07/16/2024 10:44 AM EST [facility] Blood Capillary blood specimen / Unknown 07/16/2024 10:42 AM EST 07/16/2024 10:45 AM EST us Kwesi Guido MD LAB POINT OF C ARE TEST DOCKED DEVICE UNSOLICITED RESULTS Final Result [facility] [address] [place] [address], [place] [phone] * (ABNORMAL) Basic metabolic panel (07/16/2024 6:45 AM EST) Sodium 135 133 - 145 mmol/L LAB CHEMISTRY METHOD 07/16/2024 8:40 AM EST [facility] Potassium 3.8 3.5 - 5.5 mmol/L LAB CHEMISTRY METHOD 07/16/2024 8:40 AM [facility] Chloride 103 96 - 110 mmol/L LAB CHEMISTRY METHOD 07/16/2024 8:40 AM [facility] CO2 18(L) 21 - 32 mmol/L LAB CHEMISTRY METHOD 07/16/2024 8:40 AM [facility] Anion Gap 14(H) 3 - 11 LAB CHEMISTRY METHOD 07/16/2024 8:40 AM [facility] Glucose 100 70 - 100 mg/dL LAB CHEMISTRY METHOD 07/16/2024 8:40 AM [facility] BUN 77(H) 5 - 25 mg/dL LAB CHEMISTRY METHOD 07/16/2024 8:40 AM [facility] Creatinine 5.37(H) 0.50 - 1.10 mg/dL LAB CHEMISTRY METHOD 07/16/2024 8:40 AM [facility] eGFR 8(L) >=60 mL/min/1. 73m2 LAB CHEMISTRY METHOD 07/16/2024 8:40 AM [facility] Comment:Calculation based on the??Chronic Kidney Disease Epidemiology Collaboration (CKD-EPI) equation refit??without adjustment for race. BUN/Creatinine Ratio 14.3 LAB CHEMISTRY METHOD 07/16/2024 8:40 AM [facility] Calcium 8.0(L) 8.5 - 10.5 mg/dL LAB CHEMISTRY METHOD 07/16/2024 8:40 AM [facility] Blood Venous blood specimen / Unknown Venipuncture / Unknown 07/16/2024 6:45 AM EST 07/16/2024 6:58 AM EST Kwesi Guido MD LAB BLOOD ORDERABLES F inal Result [facility] [address] [place] [address], * (ABNORMAL) Complete blood count (07/16/2024 6:45 AM EST) WBC 27.6(H) 4.8 - 10.8 K/mcL LAB HEMETOLOGY METHOD 07/16/2024 7:16 AM [facility] RBC 3.40(L) 3.80 - 4.80 M/mcL LAB HEMETOLOGY METHOD 07/16/2024 7:16 AM [facility] Hemoglobin 8.4(L) 11.5 - 16.0 g/dL LAB HEMETOLOGY METHOD 07/16/2024 7:16 AM [facility] Hematocrit 25.9(L) 35.0 - 47.0 % LAB HEMETOLOGY METHOD 07/16/2024 7:16 AM [facility] MCV 76.2(L) 79.0 - 98.0 FL LAB HEMETOLOGY METHOD 07/16/2024 7:16 AM [facility] MCH 24.7(L) 27.0 - 32.0 pcg LAB HEMETOLOGY METHOD 07/16/2024 7:16 AM [facility] MCHC 32.4 32.0 - 37.0 g/dL LAB HEMETOLOGY METHOD 07/16/2024 7:16 AM [facility] RDW 23.1(H) 11.0 - 15.0 % LAB HEMETOLOGY METHOD 07/16/2024 7:16 AM [facility] Platelets 258 130 - 400 K/mcL LAB HEMETOLOGY METHOD 07/16/2024 7:16 AM EST [facility] MPV 9.9 7.0 - 11.0 FL LAB HEMETOLOGY METHOD 07/16/2024 7:16 AM EST [facility] NRBC 0.0 <1.0 % LAB HEMETOLOGY METHOD 07/16/2024 7:16 AM EST [facility] NRBC Absolute 0.00 <0.10 K/mcL LAB HEMETOLOGY METHOD 07/16/2024 7:16 AM EST [facility] Blood Venous blood specimen / Unknown Venipuncture / Unknown 07/16/2024 6:45 AM EST 07/16/2024 6:58 AM EST us Kwesi Guido MD LAB BLOOD ORDERABLES F inal Result [facility] [address] [place] [address], [place] [phone] * POCT Glucose, blood (07/15/2024 8:26 PM EST) Glucose POCT 93 70 - 100 mg/dL 07/15/2024 8:26 PM EST [facility] Blood Capillary blood specimen / Unknown 07/15/2024 8:26 PM EST 07/15/2024 8:27 PM EST us Kwesi Guido MD LAB POINT OF C ARE TEST DOCKED DEVICE UNSOLICITED RESULTS Final Result [facility] [address] [place] [address], [place] [phone] * POCT Glucose, blood (07/15/2024 4:30 PM EST) Glucose POCT 92 70 - 100 mg/dL 07/15/2024 4:31 PM EST [facility] Blood Capillary blood specimen / Unknown 07/15/2024 4:30 PM EST 07/15/2024 4:33 PM EST us Kwesi Guido MD LAB POINT OF C ARE TEST DOCKED DEVICE UNSOLICITED RESULTS Final Result [facility] [address] [place] [address], [place] [phone] * IR Insert Tunneled CVC wo Port or Pump More 5yrs Left (07/15/2024 3:36 PM EST) Anatomical Region Laterality Modality Left Interventional R adiology 07/15/2024 3:45 PM EST Impressions 07/15/2024 3:47 PM EST Successful placement of a 14 Kosovan 23 cm dual-lumen cuffed tunneled dialysis catheter with the tip at the cavoatrial junction. This line may be used immediately. -------- FINAL REPORT -------- Dictated By: Fela Palomo Dictated Date: 07/15/2024 15:45 ET Assigned Physician: Fela Palomo Reviewed and Electronically Signed By: Fela Palomo Signed Date: 07/15/2024 15:47 ET Workstation ID: [id number] Transcribed By: Self Edit Transcribed Date: 07/15/2024 [...] The needle was exchanged for the 4 Kosovan transition sheath. A 0.035 wire was then advanced through ??the sheath and into the inferior vena cava under fluoroscopy. The sheath was then exchanged for a 7 Kosovan vascular dilator. Attention was then turned to the right upper chest and the appropriate area was anesthetized with 2% lidocaine. A small dermatotomy was performed and then a tunnel was created from the dermatotomy to the initial venous access site. The catheter was advanced through the tunnel. ??The initial venous access site was then serially dilated up to a 15 Kosovan peel-away sheath. The catheter was then advanced [...] The needle was exchanged for the 4 Kosovan transition sheath. A 0.035wire was then advanced through the sheath and into the inferior vena cavaunder fluoroscopy. The sheath was then exchanged for a 7 Kosovan vasculardilator. Attention was then turned to the right upper chest and the appropriatearea was anesthetized with 2% lidocaine. A small dermatotomy was performedand then a tunnel was created from the dermatotomy to the initial venousaccess site. The catheter was advanced through the tunnel. The initialvenous access site was then serially dilated up to a 15 Kosovan peel-awaysheath. The catheter was then advanced through [...] mGy IMPRESSION: Successful placement of a 14 Kosovan 23 cm dual-lumen cuffed tunneleddialysis catheter with the tip at the cavoatrial junction. This line maybe used immediately. -------- FINAL REPORT -------- Dictated By: Fela Palomo Dictated Date: 07/15/2024 15:45 ET Assigned Physician: Fela Palomo Reviewed and Electronically Signed By: Fela Palomo Signed Date: 07/15/2024 15:47 ET Workstation ID: [id number] Transcribed By: Self Edit Transcribed Date: 07/15/2024 15:45 ET us Chencho Wayne MD IMG IR PROCEDURES Final Result * POCT Glucose, blood (07/15/2024 10:57 AM EST) Glucose POCT 98 70 - 100 mg/dL 07/15/2024 10:58 AM EST [facility] Blood Capillary blood specimen / Unknown 07/15/2024 10:57 AM EST 07/15/2024 10:59 AM EST Kwesi Guido MD LAB POINT OF C ARE TEST DOCKED DEVICE UNSOLICITED RESULTS Final Result [facility] [address] [place] [address], * (ABNORMAL) Basic metabolic panel (07/15/2024 8:56 AM EST) Sodium 132(L) 133 - 145 mmol/L LAB CHEMISTRY METHOD 07/15/2024 10:15 AM [facility] Potassium 3.8 3.5 - 5.5 mmol/L LAB CHEMISTRY METHOD 07/15/2024 10:15 AM [facility] Chloride 104 96 - 110 mmol/L LAB CHEMISTRY METHOD 07/15/2024 10:15 AM [facility] CO2 16(L) 21 - 32 mmol/L LAB CHEMISTRY METHOD 07/15/2024 10:15 AM [facility] Anion Gap 12(H) 3 - 11 LAB CHEMISTRY METHOD 07/15/2024 10:15 AM [facility] Glucose 80 70 - 100 mg/dL LAB CHEMISTRY METHOD 07/15/2024 10:15 AM [facility] BUN 97(H) 5 - 25 mg/dL LAB CHEMISTRY METHOD 07/15/2024 10:15 AM [facility] Creatinine 6.70(H) 0.50 - 1.10 mg/dL LAB CHEMISTRY METHOD 07/15/2024 10:15 AM [facility] eGFR 6(L) >=60 mL/min/1. 73m2 LAB CHEMISTRY METHOD 07/15/2024 10:15 AM [facility] Comment:Calculation based on the??Chronic Kidney Disease Epidemiology Collaboration (CKD-EPI) equation refit??without adjustment for race. BUN/Creatinine Ratio 14.5 LAB CHEMISTRY METHOD 07/15/2024 10:15 AM EST [facility] Calcium 8.4(L) 8.5 - 10.5 mg/dL LAB CHEMISTRY METHOD 07/15/2024 10:15 AM EST [facility] Blood Venous blood specimen / Unknown Venipuncture / Unknown 07/15/2024 8:56 AM EST 07/15/2024 9:43 AM EST us Kwesi Guido MD LAB BLOOD ORDERABLES F inal Result Performing Organization Address [facility] Co de Phone Number [facility] [address] [place] [address], [place] [phone] * Hepatitis B surface antigen with reflex to confirmation (07/15/2024 8:56 AM EST) Hepatitis B Surface Ag Negative Negative LAB CHEMISTRY METHOD 07/15/2024 10:36 AM EST [facility] Blood Venous blood specimen / Unknown Venipuncture / Unknown 07/15/2024 8:56 AM EST 07/15/2024 9:43 AM EST Narrative [facility] - 07/15/2024 10:36 AM EST Over the counter supplements containing high doses of biotin may interfere with this assay. ??If interference is suspected, patients shoud be retested after refraining from biotin supplements for 72 hours. us Kwesi Guido MD LAB BLOOD ORDERABLES F inal Result [facility] [address] [place] [address], [place] [phone] * Hepatitis B surface antibody quantitative (07/15/2024 8:56 AM EST) Hepatitis B Surface Ab Negative Negative LAB CHEMISTRY METHOD 07/15/2024 10:25 AM [facility] Hepatitis B Surface Ab Quantitative <3.1 mIU/mL LAB CHEMISTRY METHOD 07/15/2024 10:25 AM [facility] Blood Venous blood specimen / Unknown Venipuncture / Unknown 07/15/2024 8:56 AM EST 07/15/2024 9:43 AM EST [facility] - 07/15/2024 10:25 AM EST >=10 mIU/mL is considered to be consistent with immunity. us Kwesi Guido MD LAB BLOOD ORDERABLES F inal Result [facility] [address] [place] [address], * (ABNORMAL) Renal function panel (07/15/2024 8:56 [...] MD LAB BLOOD ORDERABLES Final Resu lt [facility] [address] [place] [address], * POCT Glucose, blood (07/15/2024 8:03 AM EST) Glucose POCT 96 70 - 100 mg/dL 07/15/2024 8:05 AM [facility] Blood Capillary blood specimen / Unknown 07/15/2024 8:03 AM EST 07/15/2024 8:06 AM EST Kwesi Guido MD LAB POINT OF C ARE TEST DOCKED DEVICE UNSOLICITED RESULTS Final Result Performing Organization Address [facility]/ZIP Co de Phone Number [facility] [address] [place] [address], [place] [phone] * (ABNORMAL) RBC morphology review (07/15/2024 6:56 AM EST) Rbc Morphology Present( A) Consistent with indices, Normal for LAB HEMETOLOGY METHOD 07/15/2024 8:54 AM EST [facility] Platelet Morphology - WAM See Note(A) Normal LAB HEMETOLOGY METHOD 07/15/2024 8:54 AM EST [facility] LAB Comment:PLT: Normal Polychromasia Present Present( A) (none) LAB HEMETOLOGY METHOD 07/15/2024 8:54 AM EST [facility] Pappenheimer Bodies Present Present( A) (none) LAB HEMETOLOGY METHOD 07/15/2024 8:54 AM EST [facility] Schistocytes Present < 5%(A) (none) LAB HEMETOLOGY METHOD 07/15/2024 8:54 AM EST [facility] Blood Venous blood specimen / Unknown Venipuncture / Unknown 07/15/2024 6:56 AM EST 07/15/2024 7:52 AM EST us Kwesi Guido MD LAB BLOOD ORDERABLES F inal Result [facility] [address] [place] [address], [place] [phone] * (ABNORMAL) CBC auto differential (07/15/2024 6:56 AM EST) WBC 23.7(H) 4.8 - 10.8 K/mcL LAB HEMETOLOGY METHOD 07/15/2024 8:54 AM EST [facility] LAB RBC 3.10(L) 3.80 - 4.80 M/mcL LAB HEMETOLOGY METHOD 07/15/2024 8:54 AM [facility] Hemoglobin 7.5(L) 11.5 - 16.0 g/dL LAB HEMETOLOGY METHOD 07/15/2024 8:54 AM [facility] LAB Hematocrit 23.6(L) 35.0 - 47.0 % LAB HEMETOLOGY METHOD 07/15/2024 8:54 AM [facility] LAB MCV 75.9(L) 79.0 - 98.0 FL LAB HEMETOLOGY METHOD 07/15/2024 8:54 AM [facility] LAB MCH 24.1(L) 27.0 - 32.0 pcg LAB HEMETOLOGY METHOD 07/15/2024 8:54 AM [facility] LAB MCHC 31.8(L) 32.0 - 37.0 g/dL LAB HEMETOLOGY METHOD 07/15/2024 8:54 AM [facility] LAB RDW 22.7(H) 11.0 - 15.0 % LAB HEMETOLOGY METHOD 07/15/2024 8:54 AM [facility] LAB Platelets 246 130 - 400 K/mcL LAB HEMETOLOGY METHOD 07/15/2024 8:54 AM [facility] LAB MPV 10.3 7.0 - 11.0 FL LAB HEMETOLOGY METHOD 07/15/2024 8:54 AM [facility] LAB NRBC 0.0 <1.0 % LAB HEMETOLOGY METHOD 07/15/2024 8:54 AM [facility] LAB NRBC Absolute 0.00 <0.10 K/mcL LAB HEMETOLOGY METHOD 07/15/2024 8:54 AM [facility] Neutrophils Relative 87.4 % LAB HEMETOLOGY METHOD 07/15/2024 8:54 AM [facility] LAB Comment:This is an appended report. These results have been appended to a previously preliminary verified report. Lymphocytes Relative 3.5 % LAB HEMETOLOGY METHOD 07/15/2024 8:54 AM [facility] LAB Comment:This is an appended report. These results have been appended to a previously preliminary verified report. Monocytes Relative 4.8 % LAB HEMETOLOGY METHOD 07/15/2024 8:54 AM [facility] LAB Comment:This is an appended report. These results have been appended to a previously preliminary verified report. Eosinophils Relative 1.7 % LAB HEMETOLOGY METHOD 07/15/2024 8:54 AM [facility] LAB Comment:This is an appended report. These results have been appended to a previously preliminary verified report. Basophils Relative 0.2 % LAB HEMETOLOGY METHOD 07/15/2024 8:54 AM [facility] Comment:This is an appended report. These results have been appended to a previously preliminary verified report. Immature Granulocytes Relative 2.4 % LAB HEMETOLOGY METHOD 07/15/2024 8:54 AM [facility] LAB Comment:This is an appended report. These results have been appended to a previously preliminary verified report. Neutrophils Absolute 20.75(H) 1.50 - 7.00 K/mcL LAB HEMETOLOGY METHOD 07/15/2024 8:54 AM [facility] LAB Comment:This is an appended report. These results have been appended to a previously preliminary verified report. Lymphocytes Absolute 0.84(L) 1.00 - 5.00 K/mcL LAB HEMETOLOGY METHOD 07/15/2024 8:54 AM [facility] LAB Comment:This is an appended report. These results have been appended to a previously preliminary verified report. Monocytes Absolute 1.13(H) 0.20 - 1.00 K/mcL LAB HEMETOLOGY METHOD 07/15/2024 8:54 AM [facility] LAB Comment:This is an appended report. These results have been appended to a previously preliminary verified report. Eosinophils Absolute 0.41 0.00 - 0.50 K/mcL LAB HEMETOLOGY METHOD 07/15/2024 8:54 AM EST [facility] LAB Comment:This is an appended report. These results have been appended to a previously preliminary verified report. Basophils Absolute 0.05 0.00 - 0.20 K/mcL LAB HEMETOLOGY METHOD 07/15/2024 8:54 AM EST [facility] LAB Comment:This is an appended report. These results have been appended to a previously preliminary verified report. Immature Granulocytes Absolute 0.56(H) 0.00 - 0.03 K/[facility] METHOD 07/15/2024 8:54 AM EST [facility] LAB Comment:This is an appended report. These results have been appended to a previously preliminary verified report. Blood Venous blood specimen / Unknown Venipuncture / Unknown 07/15/2024 6:56 AM EST 07/15/2024 7:52 AM EST us Kwesi Guido MD LAB BLOOD ORDERABLES F inal Result [facility] [address] [place] [address], [place] [phone] * (ABNORMAL) Prothrombin time with INR (07/15/2024 6:56 AM EST) Protime 16.4(H) 10.6 - 13.9 sec LAB COAGULATION METHOD 07/15/2024 8:16 AM EST [facility] LAB INR 1.3 LAB COAGULATION METHOD 07/15/2024 8:16 AM EST [facility] Blood Venous blood specimen / Unknown Venipuncture / Unknown 07/15/2024 6:56 AM EST 07/15/2024 7:52 AM EST us Kwesi Guido MD LAB BLOOD ORDERABLES F inal Result [facility] [address] [place] [address], [place] [phone] * Magnesium (07/15/2024 6:56 AM EST) [facility] Magnesium 2.2 1.9 - 2.6 mg/dL LAB CHEMISTRY METHOD 07/15/2024 8:48 AM EST [facility] Blood Venous blood specimen / Unknown Venipuncture / Unknown 07/15/2024 6:56 AM EST 07/15/2024 7:52 AM EST Kwesi Guido MD LAB BLOOD ORDERABLES F inal Result Performing Organization Address [facility]/ZIP Co de Phone Number [facility] [address] [place] [address], [place] [phone] * (ABNORMAL) Basic metabolic panel (07/15/2024 6:56 AM EST) [facility] Sodium 134 133 - 145 mmol/L LAB CHEMISTRY METHOD 07/15/2024 8:58 AM [facility] Potassium 3.8 3.5 - 5.5 mmol/L LAB CHEMISTRY METHOD 07/15/2024 8:58 AM [facility] Chloride 104 96 - 110 mmol/L LAB CHEMISTRY METHOD 07/15/2024 8:58 AM [facility] CO2 15(L) 21 - 32 mmol/L LAB CHEMISTRY METHOD 07/15/2024 8:58 AM [facility] Anion Gap 15(H) 3 - 11 LAB CHEMISTRY METHOD 07/15/2024 8:58 AM [facility] Glucose 82 70 - 100 mg/dL LAB CHEMISTRY METHOD 07/15/2024 8:58 AM [facility] BUN 95(H) 5 - 25 mg/dL LAB CHEMISTRY METHOD 07/15/2024 8:58 AM [facility] Creatinine 6.68(H) 0.50 - 1.10 mg/dL LAB CHEMISTRY METHOD 07/15/2024 8:58 AM [facility] eGFR 6(L) >=60 mL/min/1. 73m2 LAB CHEMISTRY METHOD 07/15/2024 8:58 AM [facility] Comment:Calculation based on the??Chronic Kidney Disease Epidemiology Collaboration (CKD-EPI) equation refit??without adjustment for race. BUN/Creatinine Ratio 14.2 LAB CHEMISTRY METHOD 07/15/2024 8:58 AM [facility] Calcium 8.3(L) 8.5 - 10.5 mg/dL LAB CHEMISTRY METHOD 07/15/2024 8:58 AM [facility] Blood Venous blood specimen / Unknown Venipuncture / Unknown 07/15/2024 6:56 AM EST 07/15/2024 7:52 AM EST us Kwesi Guido MD LAB BLOOD ORDERABLES F inal Result [facility] [address] [place] [address], [place] [phone] * (ABNORMAL) POCT Glucose, blood (07/14/2024 8:07 PM EST) Glucose POCT 122(H) 70 - 100 mg/dL 07/14/2024 8:07 PM EST [facility] Blood Capillary blood specimen / Unknown 07/14/2024 8:07 PM EST 07/14/2024 8:09 PM EST us Kwesi Guido MD LAB POINT OF C ARE TEST DOCKED DEVICE UNSOLICITED RESULTS Final Result Performing Organization Address City/[facility]/ZIP Co de Phone Number [facility] [address] [place] [address], [place] [phone] * (ABNORMAL) POCT Glucose, blood (07/14/2024 4:26 PM EST) Glucose POCT 152(H) 70 - 100 mg/dL 07/14/2024 4:27 PM EST [facility] Blood Capillary blood specimen / Unknown 07/14/2024 4:26 PM EST 07/14/2024 4:28 PM EST us Kwesi Guido MD LAB POINT [facility] ARE TEST DOCKED DEVICE UNSOLICITED RESULTS Final Result [facility] [address] [place] [address], [place] [phone] * POCT Glucose, blood (07/14/2024 11:32 AM EST) Glucose POCT 100 70 - 100 mg/dL 07/14/2024 11:37 AM EST [facility] Blood Capillary blood specimen / Unknown 07/14/2024 11:32 AM EST 07/14/2024 11:38 AM EST us Kwesi Guido MD LAB POINT [facility] ARE TEST DOCKED DEVICE UNSOLICITED RESULTS Final Result [facility] [address] [place] [address], [place] [phone] * POCT Glucose, blood (07/14/2024 8:19 AM EST) Glucose POCT 72 70 - 100 mg/dL 07/14/2024 8:38 AM EST [facility] Blood Capillary blood specimen / Unknown 07/14/2024 8:19 AM EST 07/14/2024 8:39 AM EST us Kwesi Guido MD LAB POINT OF C ARE TEST DOCKED DEVICE UNSOLICITED RESULTS Final Result [facility] [address] [place] [address], [place] [phone] * Extractable Nuclear Antibodies Profile (07/14/2024 6:00 AM EST) SM Ab Negative Negative LAB CHEMISTRY METHOD 07/17/2024 12:29 PM EST [facility] SM Antibody Quant 2 <20 units LAB CHEMISTRY METHOD 07/17/2024 12:29 PM EST [facility] BOOM MAN Ab Negative Negative LAB CHEMISTRY METHOD 07/17/2024 12:29 PM EST [facility] BOOM MAN Antibody Quant 1 <20 units LAB CHEMISTRY METHOD 07/17/2024 12:29 PM EST [facility] Blood Venous blood specimen / Unknown 07/14/2024 6:00 AM EST 07/14/2024 6:35 AM EST us Kwesi Guido MD LAB BLOOD ORDERABLES F inal Result Performing Organization Address City/[facility]/ZIP Co de Phone Number [facility] [address] [place] [address], [place] [phone] * C4 complement (07/14/2024 6:00 AM EST) Pathologist [facility] C4 Complement 18 16 - 47 mg/dL LAB CHEMISTRY METHOD 07/14/2024 11:20 AM EST [facility] Blood Venous blood specimen / Unknown 07/14/2024 6:00 AM EST 07/14/2024 6:35 AM EST us Kwesi Guido MD LAB BLOOD ORDERABLES F inal Result Performing Organization Address City/[facility]/ZIP Co de Phone Number [facility] [address] [place] [address], [place] [phone] * (ABNORMAL) C3 complement (07/14/2024 6:00 AM EST) [facility] C3 Complement 78(L) 88 - 201 mg/dL LAB CHEMISTRY METHOD 07/14/2024 11:20 AM EST [facility] Blood Venous blood specimen / Unknown 07/14/2024 6:00 AM EST 07/14/2024 6:35 AM EST us Kwesi Guido MD LAB BLOOD ORDERABLES F inal Result [facility] [address] [place] [address], [place] [phone] * (ABNORMAL) Anti-neutrophilic cytoplasmic antibody (07/14/2024 6:00 AM EST) [facility] Myeloperoxidase Ab Negative Negative LAB CHEMISTRY METHOD 07/20/2024 12:10 PM EST [facility] Myeloperoxidase Ab, Quant 2 <=20 units LAB CHEMISTRY METHOD 07/20/2024 12:10 PM EST [facility] Proteinase-3 Ab Positive(A ) Negative LAB CHEMISTRY METHOD 07/20/2024 12:10 PM EST [facility] Proteinase-3 Ab Quant 162(H) <=20 units LAB CHEMISTRY METHOD 07/20/2024 12:10 PM EST [facility] Blood Venous blood specimen / Unknown 07/14/2024 6:00 AM EST 07/14/2024 6:35 AM EST us Kwesi Guido MD LAB BLOOD ORDERABLES F inal Result [facility] [address] [place] [address], [place] [phone] * (ABNORMAL) CBC auto differential (07/14/2024 6:00 AM EST) [facility] WBC 19.8(H) 4.8 - 10.8 K/mcL LAB HEMETOLOGY METHOD 07/14/2024 6:56 AM [facility] RBC 2.90(L) 3.80 - 4.80 M/[facility] LAB HEMETOLOGY METHOD 07/14/2024 6:56 AM [facility] Hemoglobin 7.0(L) 11.5 - 16.0 g/dL LAB HEMETOLOGY METHOD 07/14/2024 6:56 AM [facility] LAB Hematocrit 21.8(L) 35.0 - 47.0 % LAB HEMETOLOGY METHOD 07/14/2024 6:56 AM [facility] LAB MCV 75.7(L) 79.0 - 98.0 FL LAB HEMETOLOGY METHOD 07/14/2024 6:56 AM [facility] MCH 24.3(L) 27.0 - 32.0 pcg LAB HEMETOLOGY METHOD 07/14/2024 6:56 AM [facility] LAB MCHC 32.1 32.0 - 37.0 g/dL LAB HEMETOLOGY METHOD 07/14/2024 6:56 AM [facility] LAB RDW 21.6(H) 11.0 - 15.0 % LAB HEMETOLOGY METHOD 07/14/2024 6:56 AM [facility] Platelets 193 130 - 400 K/[facility] LAB HEMETOLOGY METHOD 07/14/2024 6:56 AM [facility] MPV 9.9 7.0 - 11.0 FL LAB HEMETOLOGY METHOD 07/14/2024 6:56 AM [facility] LAB NRBC 0.0 <1.0 % LAB HEMETOLOGY METHOD 07/14/2024 6:56 AM [facility] LAB NRBC Absolute 0.00 <0.10 K/[facility] LAB HEMETOLOGY METHOD 07/14/2024 6:56 AM [facility] Neutrophils Relative 85.1 % LAB HEMETOLOGY METHOD 07/14/2024 6:56 AM [facility] Lymphocytes Relative 3.7 % LAB HEMETOLOGY METHOD 07/14/2024 6:56 AM [facility] Monocytes Relative 6.1 % LAB HEMETOLOGY METHOD 07/14/2024 6:56 AM [facility] Eosinophils Relative 2.5 % LAB HEMETOLOGY METHOD 07/14/2024 6:56 AM [facility] Basophils Relative 0.2 % LAB HEMETOLOGY METHOD 07/14/2024 6:56 AM [facility] Immature Granulocytes Relative 2.4 % LAB HEMETOLOGY METHOD 07/14/2024 6:56 AM [facility] Neutrophils Absolute 16.82(H) 1.50 - 7.00 K/mcL LAB HEMETOLOGY METHOD 07/14/2024 6:56 AM [facility] Lymphocytes Absolute 0.74(L) 1.00 - 5.00 K/mcL LAB HEMETOLOGY METHOD 07/14/2024 6:56 AM [facility] Monocytes Absolute 1.20(H) 0.20 - 1.00 K/mcL LAB HEMETOLOGY METHOD 07/14/2024 6:56 AM [facility] Eosinophils Absolute 0.50 0.00 - 0.50 K/mcL LAB HEMETOLOGY METHOD 07/14/2024 6:56 AM [facility] Basophils Absolute 0.04 0.00 - 0.20 K/mcL LAB HEMETOLOGY METHOD 07/14/2024 6:56 AM [facility] Immature Granulocytes Absolute 0.48(H) 0.00 - 0.03 K/mcL LAB HEMETOLOGY METHOD 07/14/2024 6:56 AM [facility] Blood Venous blood specimen / Unknown 07/14/2024 6:00 AM EST 07/14/2024 6:36 AM EST us Kwesi Guido MD LAB BLOOD ORDERABLES F inal Result Performing Organization Address City/[facility]/ZIP Co de Phone Number [facility] [address] [place] [address], [place] [phone] * Magnesium (07/14/2024 6:00 AM EST) [facility] Magnesium 2.0 1.9 - 2.6 mg/dL LAB CHEMISTRY METHOD 07/14/2024 7:23 AM [facility] Blood Venous blood specimen / Unknown 07/14/2024 6:00 AM EST 07/14/2024 6:35 AM EST us Kwesi Guido MD LAB BLOOD ORDERABLES F inal Result Performing Organization Address City/[facility]/ZIP Co de Phone Number [facility] [address] [place] [address], [place] [phone] * (ABNORMAL) Basic metabolic panel (07/14/2024 6:00 AM EST) [facility] Sodium 132(L) 133 - 145 mmol/L LAB CHEMISTRY METHOD 07/14/2024 7:38 AM [facility] Potassium 3.4(L) 3.5 - 5.5 mmol/L LAB CHEMISTRY METHOD 07/14/2024 7:38 AM EST [facility] Chloride 104 96 - 110 mmol/L LAB CHEMISTRY METHOD 07/14/2024 7:38 AM [facility] CO2 18(L) 21 - 32 mmol/L LAB CHEMISTRY METHOD 07/14/2024 7:38 AM [facility] Anion Gap 10 3 - 11 LAB CHEMISTRY METHOD 07/14/2024 7:38 AM [facility] Glucose 69(L) 70 - 100 mg/dL LAB CHEMISTRY METHOD 07/14/2024 7:38 AM [facility] BUN 84(H) 5 - 25 mg/dL LAB CHEMISTRY METHOD 07/14/2024 7:38 AM [facility] Creatinine 5.84(H) 0.50 - 1.10 mg/dL LAB CHEMISTRY METHOD 07/14/2024 7:38 AM [facility] eGFR 7(L) >=60 mL/min/1. 73m2 LAB CHEMISTRY METHOD 07/14/2024 7:38 AM EST [facility] LAB Comment:Calculation based on the??Chronic Kidney Disease Epidemiology Collaboration (CKD-EPI) equation refit??without adjustment for race. BUN/Creatinine Ratio 14.4 LAB CHEMISTRY METHOD 07/14/2024 7:38 AM [facility] Calcium 8.2(L) 8.5 - 10.5 mg/dL LAB CHEMISTRY METHOD 07/14/2024 7:38 AM [facility] Blood Venous blood specimen / Unknown 07/14/2024 6:00 AM EST 07/14/2024 6:35 AM EST us Kwesi Guido MD LAB BLOOD ORDERABLES F inal Result [facility] [address] [place] [address], * (ABNORMAL) POCT Glucose, blood (07/13/2024 8:53 PM EST) Glucose POCT 153(H) 70 - 100 mg/dL 07/13/2024 8:55 PM EST [facility] Blood Capillary blood specimen / Unknown 07/13/2024 8:53 PM EST 07/13/2024 8:56 PM EST us Kwesi Guido MD LAB POINT OF C ARE TEST DOCKED DEVICE UNSOLICITED RESULTS Final Result Performing Organization Address [facility]/ZIP Co de Phone Number [facility] [address] [place] [address], [place] [phone] * Transfuse RBC (07/13/2024 7:03 PM EST) us Kwesi Guido MD BLOOD TRANSFUSION ORDE RABLES Final Result * Transfuse RBC: 1 Units (07/13/2024 7:03 PM EST) us Kwesi Guido MD BLOOD TRANSFUSION ORDE RABLES Final Result * (ABNORMAL) POCT Glucose, blood (07/13/2024 3:53 PM EST) Glucose POCT 115(H) 70 - 100 mg/dL 07/13/2024 3:56 PM EST [facility] Blood Capillary blood specimen / Unknown 07/13/2024 3:53 PM EST 07/13/2024 3:57 PM EST us Kwesi Guido MD LAB POINT OF C ARE TEST DOCKED DEVICE UNSOLICITED RESULTS Final Result Performing Organization Address [facility] Co de Phone Number [facility] [address] [place] [address], [place] [phone] * (ABNORMAL) POCT Glucose, blood (07/13/2024 10:58 AM EST) Glucose POCT 106(H) 70 - 100 mg/dL 07/13/2024 10:58 AM EST [facility] Blood Capillary blood specimen / Unknown 07/13/2024 10:58 AM EST 07/13/2024 10:59 AM EST us Kwesi Guido MD LAB POINT OF C ARE TEST DOCKED DEVICE UNSOLICITED RESULTS Final Result Performing Organization Address City/[facility]/ZIP Co de Phone Number [facility] [address] [place] [address], [place] [phone] * Prepare RBC: 1 Units (07/13/2024 10:44 AM EST) Product Code [id number] 07/13/2024 12:34 PM [facility] Unit Number [id number] 07/13/19 12:34 PM [facility] Crossmatch Compatible 07/13/2024 11:06 AM [facility] Dispense Status Transfused 07/13/2024 12:34 PM [facility] Unit ABO Rh OPOS 07/13/2024 12:34 PM [facility] Unit Expiration Date Time 07/13/2024 12:34 PM [facility] Unit Blood Type 5100 07/13/2024 12:34 PM [facility] Blood Venous blood specimen / Unknown 07/13/2024 10:44 AM EST 07/13/2024 8:32 AM EST Kwesi Guido MD BLOOD BANK PRODUCT ORD ERABLES Final Result [facility] [address] [place] [address], [place] [phone] * Type and screen (07/13/2024 8:24 AM EST) ABO Group O 07/13/2024 10:29 AM [facility] Rh Type Positive 07/13/2024 10:29 AM [facility] Antibody Screen Negative 07/13/2024 10:29 AM EST [facility] Blood Venous blood specimen / Unknown Venipuncture / Unknown 07/13/2024 8:24 AM EST 07/13/2024 8:32 AM EST us Kwesi Guido MD LAB BLOOD BANK TEST OR DERABLES Final Result Performing Organization Address City/[facility]/ZIP Co de Phone Number [facility] [address] [place] [address], [place] [phone] * POCT Glucose, blood (07/13/2024 8:13 AM EST) [facility] Glucose POCT 87 70 - 100 mg/dL 07/13/2024 8:20 AM EST [facility] Blood Capillary blood specimen / Unknown 07/13/2024 8:13 AM EST 07/13/2024 8:21 AM EST us Kwesi Guido MD LAB POINT OF C ARE TEST DOCKED DEVICE UNSOLICITED RESULTS Final Result Performing Organization Address [facility]/ZIP Co de Phone Number [facility] [address] [place] [address], [place] [phone] * (ABNORMAL) CBC auto differential (07/13/2024 6:38 AM EST) [facility] WBC 20.6(H) 4.8 - 10.8 K/[facility] LAB HEMETOLOGY METHOD 07/13/2024 7:14 AM [facility] RBC 2.70(L) 3.80 - 4.80 M/[facility] LAB HEMETOLOGY METHOD 07/13/2024 7:14 AM [facility] Hemoglobin 6.5(L) 11.5 - 16.0 g/dL LAB HEMETOLOGY METHOD 07/13/2024 7:14 AM [facility] Hematocrit 20.3(L) 35.0 - 47.0 % LAB HEMETOLOGY METHOD 07/13/2024 7:14 AM [facility] MCV 74.4(L) 79.0 - 98.0 FL LAB HEMETOLOGY METHOD 07/13/2024 7:14 AM [facility] MCH 23.8(L) 27.0 - 32.0 pcg LAB HEMETOLOGY METHOD 07/13/2024 7:14 AM [facility] MCHC 32.0 32.0 - 37.0 g/dL LAB HEMETOLOGY METHOD 07/13/2024 7:14 AM [facility] RDW 21.4(H) 11.0 - 15.0 % LAB HEMETOLOGY METHOD 07/13/2024 7:14 AM [facility] Platelets 199 130 - 400 K/mcL LAB HEMETOLOGY METHOD 07/13/2024 7:14 AM [facility] MPV 9.9 7.0 - 11.0 FL LAB HEMETOLOGY METHOD 07/13/2024 7:14 AM [facility] NRBC 0.0 <1.0 % LAB HEMETOLOGY METHOD 07/13/2024 7:14 AM [facility] NRBC Absolute 0.00 <0.10 K/mcL LAB HEMETOLOGY METHOD 07/13/2024 7:14 AM [facility] Neutrophils Relative 84.4 % LAB HEMETOLOGY METHOD 07/13/2024 7:14 AM [facility] Lymphocytes Relative 3.9 % LAB HEMETOLOGY METHOD 07/13/2024 7:14 AM [facility] Monocytes Relative 6.3 % LAB HEMETOLOGY METHOD 07/13/2024 7:14 AM [facility] Eosinophils Relative 3.3 % LAB HEMETOLOGY METHOD 07/13/2024 7:14 AM [facility] Basophils Relative 0.1 % LAB HEMETOLOGY METHOD 07/13/2024 7:14 AM [facility] Immature Granulocytes Relative 2.0 % LAB HEMETOLOGY METHOD 07/13/2024 7:14 AM EST [facility] Neutrophils Absolute 17.36(H) 1.50 - 7.00 K/[facility] LAB HEMETOLOGY METHOD 07/13/2024 7:14 AM EST [facility] Lymphocytes Absolute 0.81(L) 1.00 - 5.00 K/[facility] LAB HEMETOLOGY METHOD 07/13/2024 7:14 AM EST [facility] Monocytes Absolute 1.30(H) 0.20 - 1.00 K/[facility] LAB HEMETOLOGY METHOD 07/13/2024 7:14 AM EST [facility] Eosinophils Absolute 0.67(H) 0.00 - 0.50 K/[facility] LAB HEMETOLOGY METHOD 07/13/2024 7:14 AM EST [facility] Basophils Absolute 0.03 0.00 - 0.20 K/[facility] LAB HEMETOLOGY METHOD 07/13/2024 7:14 AM EST [facility] Immature Granulocytes Absolute 0.41(H) 0.00 - 0.03 K/[facility] HEMETOLOGY METHOD 07/13/2024 7:14 AM EST [facility] Blood Venous blood specimen / Unknown Venipuncture / Unknown 07/13/2024 6:38 AM EST 07/13/2024 6:51 AM EST Kwesi Guido MD LAB BLOOD ORDERABLES F inal Result [facility] [address] [place] [address], * Phosphorus (07/13/2024 6:38 AM EST) Phosphorus 3.0 2.5 - 4.5 mg/dL LAB CHEMISTRY METHOD 07/13/2024 7:44 AM EST [facility] Blood Venous blood specimen / Unknown Venipuncture / Unknown 07/13/2024 6:38 AM EST 07/13/2024 6:50 AM EST us Kwesi Guido MD LAB BLOOD ORDERABLES F inal Result Performing Organization Address [facility]/ZIP Co de Phone Number [facility] [address] [place] [address], [place] [phone] * Magnesium (07/13/2024 6:38 AM EST) [facility] Magnesium 1.9 1.9 - 2.6 mg/dL LAB CHEMISTRY METHOD 07/13/2024 7:44 AM EST [facility] Blood Venous blood specimen / Unknown Venipuncture / Unknown 07/13/2024 6:38 AM EST 07/13/2024 6:50 AM EST us Kwesi Guido MD LAB BLOOD ORDERABLES F inal Result Performing Organization Address [facility]/ZIP Co de Phone Number [facility] [address] [place] [address], [place] [phone] * (ABNORMAL) Basic metabolic panel (07/13/2024 6:38 AM EST) [facility] Sodium 132(L) 133 - 145 mmol/L LAB CHEMISTRY METHOD 07/13/2024 7:57 AM [facility] Potassium 3.6 3.5 - 5.5 mmol/L LAB CHEMISTRY METHOD 07/13/2024 7:57 AM [facility] Chloride 104 96 - 110 mmol/L LAB CHEMISTRY METHOD 07/13/2024 7:57 AM [facility] CO2 18(L) 21 - 32 mmol/L LAB CHEMISTRY METHOD 07/13/2024 7:57 AM [facility] Anion Gap 10 3 - 11 LAB CHEMISTRY METHOD 07/13/2024 7:57 AM [facility] Glucose 71 70 - 100 mg/dL LAB CHEMISTRY METHOD 07/13/2024 7:57 AM [facility] BUN 73(H) 5 - 25 mg/dL LAB CHEMISTRY METHOD 07/13/2024 7:57 AM [facility] Creatinine 5.13(H) 0.50 - 1.10 mg/dL LAB CHEMISTRY METHOD 07/13/2024 7:57 AM [facility] LAB eGFR 8(L) >=60 mL/min/1. 73m2 LAB CHEMISTRY METHOD 07/13/2024 7:57 AM [facility] Comment:Calculation based on the??Chronic Kidney Disease Epidemiology Collaboration (CKD-EPI) equation refit??without adjustment for race. BUN/Creatinine Ratio 14.2 LAB CHEMISTRY METHOD 07/13/2024 7:57 AM [facility] Calcium 8.1(L) 8.5 - 10.5 mg/dL LAB CHEMISTRY METHOD 07/13/2024 7:57 AM [facility] Blood Venous blood specimen / Unknown Venipuncture / Unknown 07/13/2024 6:38 AM EST 07/13/2024 6:50 AM EST Kwesi Guido MD LAB BLOOD ORDERABLES F inal Result [facility] [address] [place] [address], * Uric acid (07/13/2024 6:38 AM EST) Uric Acid 7.5 3.1 - 7.8 mg/dL LAB CHEMISTRY METHOD 07/13/2024 7:44 AM [facility] Blood Venous blood specimen / Unknown Venipuncture / Unknown 07/13/2024 6:38 AM EST 07/13/2024 6:50 AM EST Chencho Wayne MD LAB BLOOD ORDERABLES Final Resu lt Performing Organization Address [facility]/ZIP Co de Phone Number [facility] [address] [place] [address], * (ABNORMAL) Sedimentation rate (07/13/2024 6:38 AM EST) Sed Rate 84(H) 0 - 30 mm/hr LAB HEMETOLOGY METHOD 07/13/2024 7:32 AM EST [facility] Blood Venous blood specimen / Unknown Venipuncture / Unknown 07/13/2024 6:38 AM EST 07/13/2024 6:51 AM EST us Kwesi Guido MD LAB BLOOD ORDERABLES F inal Result Performing Organization Address [facility]/ZIP Co de Phone Number [facility] [address] [place] [address], * (ABNORMAL) POCT Glucose, blood (07/12/2024 8:06 PM EST) Glucose POCT 125(H) 70 - 100 mg/dL 07/12/2024 8:08 PM EST [facility] Blood Capillary blood specimen / Unknown 07/12/2024 8:06 PM EST 07/12/2024 8:09 PM EST us Kwesi Guido MD LAB POINT OF C ARE TEST DOCKED DEVICE UNSOLICITED RESULTS Final Result Performing Organization Address [facility]/ZIP Co de Phone Number [facility] [address] [place] [address], [place] [phone] * (ABNORMAL) POCT Glucose, blood (07/12/2024 3:53 PM EST) Glucose POCT 143(H) 70 - 100 mg/dL 07/12/2024 3:57 PM EST [facility] Blood Capillary blood specimen / Unknown 07/12/2024 3:53 PM EST 07/12/2024 3:59 PM EST us Kwesi Guido MD LAB POINT OF C ARE TEST DOCKED DEVICE UNSOLICITED RESULTS Final Result Performing Organization Address [facility]/ZIP Co de Phone Number [facility] [address] [place] [address], [place] [phone] * (ABNORMAL) Protein and creatinine with ratio, urine (07/12/2024 3:27 PM EST) Protein, Urine 192 mg/dL LAB CHEMISTRY METHOD 07/12/2024 6:44 PM [facility] Prot/Creat, Ur 3.00(H) <=0.20 mg/mg creat LAB CHEMISTRY METHOD 07/12/2024 6:44 PM EST [facility] Creatinine, Urine 64.0 mg/dL LAB CHEMISTRY METHOD 07/12/2024 6:44 PM EST [facility] Urine Urine specimen obtained by clean catch procedure / Unknown Non-blood Collection / Unknown 07/12/2024 3:27 PM EST 07/12/2024 4:10 PM EST us Chencho Wayne MD LAB URINE ORDERABLES Final Resu lt Performing Organization Address City/[facility]/ZIP Co de Phone Number [facility] [address] [place] [address], [place] [phone] * Creatinine, urine, random (07/12/2024 3:27 PM EST) Creatinine, Urine 64.0 mg/dL LAB CHEMISTRY METHOD 07/12/2024 4:41 PM EST [facility] Urine Urine specimen from urethra / Unknown Non-blood Collection / Unknown 07/12/2024 3:27 PM EST 07/12/2024 4:11 PM EST Chencho Wayne MD LAB URINE ORDERABLES Final Resu lt Performing Organization Address [facility]/ZIP Co de Phone Number [facility] [address] [place] [address], [place] [phone] * Sodium, urine, random (07/12/2024 3:27 PM EST) Sodium, Ur 34 mmol/L LAB CHEMISTRY METHOD 07/12/2024 6:44 PM EST [facility] Urine Urine specimen obtained by clean catch procedure / Unknown Non-blood Collection / Unknown 07/12/2024 3:27 PM EST 07/12/2024 4:10 PM EST Aye H[facility] LAB URINE ORDERABLES Final Re sult Performing Organization Address [facility] Co de Phone Number [facility] [address] [place] [address], [place] [phone] * Osmolality, urine (07/12/2024 3:27 PM EST) Osmolality, Urine 397 300 - 1,300 mOsm/kg LAB CHEMISTRY METHOD 07/12/2024 5:57 PM EST [facility] Urine Urine specimen obtained by clean catch procedure / Unknown Non-blood Collection / Unknown 07/12/2024 3:27 PM EST 07/12/2024 4:10 PM EST Aye H[facility] LAB URINE ORDERABLES Final Re sult Performing Organization Address [facility]/ZIP Co de Phone Number [facility] [address] [place] [address], [place] [phone] * CT Chest wo Contrast (07/12/2024 12:48 PM EST) Anatomical Region Laterality Modality Body Computed Tomogra phy 07/12/2024 1:07 PM EST Impressions 07/12/2024 1:19 PM EST Impression: 1. No significant change in an irregular juxtapleural nodular opacity in the right lung apex. Malignancy is not excluded. 2. No developing lymphadenopathy. 3. Small bilateral pleural effusions, new. Starr [place] ([id number]) -------- FINAL REPORT -------- Dictated By: Edilia Durbin Dictated Date: 07/12/2024 13:07 ET Assigned Physician: Edilia Durbin Reviewed and Electronically Signed By: Edilia Durbin Signed Date: 07/12/2024 13:19 ET Workstation ID: [id number] Transcribed By: Self Edit Transcribed Date: 07/12/2024 13:07 ET Narrative 07/12/2024 1:19 PM EST History: Abnormal chest radiograph. The patient underwent nondiagnostic CT- guided biopsy of the right apical lung nodule on 05/23/24. Comparison: Thoracic CT 06/17/24, 03/21/24 Technique: Helical volumetric imaging of the thorax was performed without IV contrast. DLP: 613.10 mGy/cm [employer] VCT Iterative reconstruction technique Findings: Respiratory motion [...] was performed withoutIV contrast. DLP: 613.10 mGy/cm [employer] VCT Iterative reconstruction technique Findings: Respiratory motion [...] Small bilateral pleural effusions, new. Telerad RYLEY ([id number]) -------- FINAL REPORT -------- Dictated By: Edilia Durbin Dictated Date: 07/12/2024 13:07 ET Assigned Physician: Edilia Durbin Reviewed and Electronically Signed By: Edilia Durbin Signed Date: 07/12/2024 13:19 ET Workstation ID: [id number] Transcribed By: Self Edit Transcribed Date: 07/12/2024 13:07 ET us Kwesi Guido MD IMG CT PROCEDURES [place] Result * (ABNORMAL) POCT Glucose, blood (07/12/2024 11:48 AM EST) Glucose POCT 176(H) 70 - 100 mg/dL 07/12/2024 11:49 AM EST [facility] Blood Capillary blood specimen / Unknown 07/12/2024 11:48 AM EST 07/12/2024 11:50 AM EST us Kwesi Guido MD LAB POINT OF ARE TEST DOCKED DEVICE UNSOLICITED RESULTS Final Result Performing Organization Address City/[facility]/ZIP Co de Phone Number [facility] [address] [place] [address], [place] [phone] * (ABNORMAL) POCT Glucose, blood (07/12/2024 8:07 AM EST) Glucose POCT 166(H) 70 - 100 mg/dL 07/12/2024 8:31 AM EST [facility] Blood Capillary blood specimen / Unknown 07/12/2024 8:07 AM EST 07/12/2024 8:32 AM EST us Kwesi Guido MD LAB POINT OF ARE TEST DOCKED DEVICE UNSOLICITED RESULTS Final Result [facility] [address] [place] [address], [place] [phone] * (ABNORMAL) Lipase (07/12/2024 6:19 AM EST) Lipase <10(L) 13 - 75 unit/L LAB CHEMISTRY METHOD 07/12/2024 3:26 PM EST [facility] Blood Venous blood specimen / Unknown Venipuncture / Unknown 07/12/2024 6:19 AM EST 07/12/2024 6:56 AM EST us Kwesi Guido MD LAB BLOOD ORDERABLES F inal Result [facility] [address] [place] [address], [place] [phone] * (ABNORMAL) Hepatic function panel (07/12/2024 6:19 AM EST) Total Protein 4.9(L) 6.0 - 8.0 g/dL LAB CHEMISTRY METHOD 07/12/2024 3:26 PM EST [facility] Albumin 1.5(L) 3.2 - 5.0 g/dL LAB CHEMISTRY METHOD 07/12/2024 3:26 PM [facility] Total Bilirubin 0.5 0.0 - 1.4 mg/dL LAB CHEMISTRY METHOD 07/12/2024 3:26 PM [facility] Bilirubin, Direct 0.2 0.0 - 0.3 mg/dL LAB CHEMISTRY METHOD 07/12/2024 3:26 PM EST [facility] Bilirubin, Indirect 0.3 0.0 - 1.1 mg/dL LAB CHEMISTRY METHOD 07/12/2024 3:26 PM [facility] ALT (SGPT) 37 10 - 60 unit/L LAB CHEMISTRY METHOD 07/12/2024 3:26 PM [facility] AST (SGOT) 32 10 - 42 unit/L LAB CHEMISTRY METHOD 07/12/2024 3:26 PM [facility] Alkaline Phosphatase 157(H) 42 - 121 unit/L LAB CHEMISTRY METHOD 07/12/2024 3:26 PM [facility] Blood Venous blood specimen / Unknown Venipuncture / Unknown 07/12/2024 6:19 AM EST 07/12/2024 6:56 AM EST us Kwesi Guido MD LAB BLOOD ORDERABLES F inal Result [facility] [address] [place] [address], [place] [phone] * (ABNORMAL) Procalcitonin (07/12/2024 6:19 AM EST) Procalcitonin 3.11(H) <=0.16 ng/mL LAB CHEMISTRY METHOD 07/12/2024 12:23 PM EST [facility] Blood Venous blood specimen / Unknown Venipuncture / Unknown 07/12/2024 6:19 AM EST 07/12/2024 6:56 AM EST Narrative [facility] - 07/12/2024 12:23 PM [...] ORDERABLES F inal Result Performing Organization Address [facility]/State/ZIP Co de Phone Number [facility] [address] [place] [address], [place] [phone] * (ABNORMAL) C-reactive protein (07/12/2024 6:19 AM EST) C-Reactive Protein 16.60(H) <=0.50 mg/dL LAB CHEMISTRY METHOD 07/12/2024 10:35 AM [facility] Blood Venous blood specimen / Unknown Venipuncture / Unknown 07/12/2024 6:19 AM EST 07/12/2024 6:56 AM EST us Kwesi Guido MD LAB BLOOD ORDERABLES F inal Result [facility] [address] [place] [address], * (ABNORMAL) CBC auto differential (07/12/2024 6:19 AM EST) WBC 21.8(H) 4.8 - 10.8 K/mcL LAB HEMETOLOGY METHOD 07/12/2024 7:08 AM [facility] RBC 3.10(L) 3.80 - 4.80 M/mcL LAB HEMETOLOGY METHOD 07/12/2024 7:08 AM [facility] Hemoglobin 7.2(L) 11.5 - 16.0 g/dL LAB HEMETOLOGY METHOD 07/12/2024 7:08 AM [facility] Hematocrit 22.6(L) 35.0 - 47.0 % LAB HEMETOLOGY METHOD 07/12/2024 7:08 AM [facility] MCV 74.1(L) 79.0 - 98.0 FL LAB HEMETOLOGY METHOD 07/12/2024 7:08 AM [facility] MCH 23.6(L) 27.0 - 32.0 pcg LAB HEMETOLOGY METHOD 07/12/2024 7:08 AM [facility] MCHC 31.9(L) 32.0 - 37.0 g/dL LAB HEMETOLOGY METHOD 07/12/2024 7:08 AM [facility] RDW 21.0(H) 11.0 - 15.0 % LAB HEMETOLOGY METHOD 07/12/2024 7:08 AM [facility] Platelets 206 130 - 400 K/mcL LAB HEMETOLOGY METHOD 07/12/2024 7:08 AM [facility] MPV 9.6 7.0 - 11.0 FL LAB HEMETOLOGY METHOD 07/12/2024 7:08 AM [facility] NRBC 0.0 <1.0 % LAB HEMETOLOGY METHOD 07/12/2024 7:08 AM [facility] NRBC Absolute 0.00 <0.10 K/mcL LAB HEMETOLOGY METHOD 07/12/2024 7:08 AM [facility] Neutrophils Relative 86.5 % LAB HEMETOLOGY METHOD 07/12/2024 7:08 AM [facility] Lymphocytes Relative 2.7 % LAB HEMETOLOGY METHOD 07/12/2024 7:08 AM [facility] Monocytes Relative 5.8 % LAB HEMETOLOGY METHOD 07/12/2024 7:08 AM [facility] Eosinophils Relative 2.8 % LAB HEMETOLOGY METHOD 07/12/2024 7:08 AM [facility] Basophils Relative 0.2 % LAB HEMETOLOGY METHOD 07/12/2024 7:08 AM [facility] Immature Granulocytes Relative 2.0 % LAB HEMETOLOGY METHOD 07/12/2024 7:08 AM [facility] Neutrophils Absolute 18.89(H) 1.50 - 7.00 K/mcL LAB HEMETOLOGY METHOD 07/12/2024 7:08 AM [facility] Lymphocytes Absolute 0.59(L) 1.00 - 5.00 K/mcL LAB HEMETOLOGY METHOD 07/12/2024 7:08 AM [facility] Monocytes Absolute 1.27(H) 0.20 - 1.00 K/mcL LAB HEMETOLOGY METHOD 07/12/2024 7:08 AM EST [facility] Eosinophils Absolute 0.62(H) 0.00 - 0.50 K/[facility] LAB HEMETOLOGY METHOD 07/12/2024 7:08 AM EST [facility] Basophils Absolute 0.04 0.00 - 0.20 K/[facility] LAB HEMETOLOGY METHOD 07/12/2024 7:08 AM EST [facility] Immature Granulocytes Absolute 0.43(H) 0.00 - 0.03 K/[facility] LAB HEMETOLOGY METHOD 07/12/2024 7:08 AM EST [facility] Blood Venous blood specimen / Unknown Venipuncture / Unknown 07/12/2024 6:19 AM EST 07/12/2024 6:58 AM EST us Kwesi Guido MD LAB BLOOD ORDERABLES F inal Result [facility] [address] [place] [address], [place] [phone] * Phosphorus (07/12/2024 6:19 AM EST) Phosphorus 2.9 2.5 - 4.5 mg/dL LAB CHEMISTRY METHOD 07/12/2024 7:48 AM EST [facility] Blood Venous blood specimen / Unknown Venipuncture / Unknown 07/12/2024 6:19 AM EST 07/12/2024 6:56 AM EST us Kwesi Guido MD LAB BLOOD ORDERABLES F inal Result [facility] [address] [place] [address], [place] [phone] * (ABNORMAL) Magnesium (07/12/2024 6:19 AM EST) Magnesium 1.8(L) 1.9 - 2.6 mg/dL LAB CHEMISTRY METHOD 07/12/2024 7:48 AM [facility] Blood Venous blood specimen / Unknown Venipuncture / Unknown 07/12/2024 6:19 AM EST 07/12/2024 6:56 AM EST Kwesi Guido MD LAB BLOOD ORDERABLES F inal Result [facility] [address] [place] [address], * (ABNORMAL) Basic metabolic panel (07/12/2024 6:19 AM EST) Sodium 132(L) 133 - 145 mmol/L LAB CHEMISTRY METHOD 07/12/2024 7:49 AM [facility] Potassium 3.7 3.5 - 5.5 mmol/L LAB CHEMISTRY METHOD 07/12/2024 7:49 AM [facility] Chloride 102 96 - 110 mmol/L LAB CHEMISTRY METHOD 07/12/2024 7:49 AM [facility] CO2 18(L) 21 - 32 mmol/L LAB CHEMISTRY METHOD 07/12/2024 7:49 AM [facility] Anion Gap 12(H) 3 - 11 LAB CHEMISTRY METHOD 07/12/2024 7:49 AM [facility] Glucose 132(H) 70 - 100 mg/dL LAB CHEMISTRY METHOD 07/12/2024 7:49 AM [facility] BUN 70(H) 5 - 25 mg/dL LAB CHEMISTRY METHOD 07/12/2024 7:49 AM [facility] Creatinine 4.64(H) 0.50 - 1.10 mg/dL LAB CHEMISTRY METHOD 07/12/2024 7:49 AM [facility] eGFR 9(L) >=60 mL/min/1. 73m2 LAB CHEMISTRY METHOD 07/12/2024 7:49 AM EST [facility] Comment:Calculation based on the??Chronic Kidney Disease Epidemiology Collaboration (CKD-EPI) equation refit??without adjustment for race. BUN/Creatinine Ratio 15.1 LAB CHEMISTRY METHOD 07/12/2024 7:49 AM EST [facility] Calcium 8.1(L) 8.5 - 10.5 mg/dL LAB CHEMISTRY METHOD 07/12/2024 7:49 AM EST [facility] Blood Venous blood specimen / Unknown Venipuncture / Unknown 07/12/2024 6:19 AM EST 07/12/2024 6:56 AM EST us Kwesi Guido MD LAB BLOOD ORDERABLES F inal Result [facility] [address] [place] [address], [place] [phone] * (ABNORMAL) POCT Glucose, blood (07/11/2024 8:03 PM EST) [facility] Signature Glucose POCT 257(H) 70 - 100 mg/dL 07/11/2024 8:04 PM EST [facility] POCT Comment RN Notified 07/11/2024 8:04 PM EST [facility] Blood Capillary blood specimen / Unknown 07/11/2024 8:03 PM EST 07/11/2024 8:05 PM EST us Kwesi Guido MD LAB POINT OF C ARE TEST DOCKED DEVICE UNSOLICITED RESULTS Final Result Performing Organization Address [facility]/ZIP Co de Phone Number [facility] [address] [place] [address], [place] [phone] * (ABNORMAL) POCT Glucose, blood (07/11/2024 3:51 PM EST) Glucose POCT 259(H) 70 - 100 mg/dL 07/11/2024 3:51 PM EST [facility] Blood Capillary blood specimen / Unknown 07/11/2024 3:51 PM EST 07/11/2024 3:52 PM EST us Kwesi Guido MD LAB POINT [facility] ARE TEST DOCKED DEVICE UNSOLICITED RESULTS Final Result Performing Organization Address City/[facility]/ZIP Co de Phone Number [facility] [address] [place] [address], [place] [phone] * (ABNORMAL) POCT Glucose, blood (07/11/2024 11:10 AM EST) Glucose POCT 301(H) 70 - 100 mg/dL 07/11/2024 11:11 AM EST [facility] Blood Capillary blood specimen / Unknown 07/11/2024 11:10 AM EST 07/11/2024 11:13 AM EST us Kwesi Guido MD LAB POINT OF ARE TEST DOCKED DEVICE UNSOLICITED RESULTS Final Result Performing Organization Address City/[facility]/ZIP Co de Phone Number [facility] [address] [place] [address], [place] [phone] * (ABNORMAL) POCT Glucose, blood (07/11/2024 8:17 AM EST) Glucose POCT 191(H) 70 - 100 mg/dL 07/11/2024 8:17 AM EST [facility] Blood Capillary blood specimen / Unknown 07/11/2024 8:17 AM EST 07/11/2024 8:19 AM EST us Kwesi Guido MD LAB POINT OF C ARE TEST DOCKED DEVICE UNSOLICITED RESULTS Final Result Performing Organization Address City/[facility]/ZIP Co de Phone Number [facility] [address] [place] [address], [place] [phone] * Pathologist Review Immunofixation (07/11/2024 6:21 AM EST) Pathologist Interpretation Reviewed by Rosenda Galeana MD 07/13/2024 4:13 PM EST [facility] Blood Venous blood specimen / Unknown Venipuncture / Unknown 07/11/2024 6:21 AM EST 07/11/2024 6:43 AM EST Chencho Wayne MD LAB BLOOD ORDERABLES Final Resu lt Performing Organization Address [facility]/ZIP Co de Phone Number [facility] [address] [place] [address], [place] [phone] * (ABNORMAL) Hepatic function panel (07/11/2024 6:21 AM EST) Total Protein 5.1(L) 6.0 - 8.0 g/dL LAB CHEMISTRY METHOD 07/12/2024 3:26 PM [facility] Albumin 1.5(L) 3.2 - 5.0 g/dL LAB CHEMISTRY METHOD 07/12/2024 3:26 PM [facility] Total Bilirubin 0.6 0.0 - 1.4 mg/dL LAB CHEMISTRY METHOD 07/12/2024 3:26 PM [facility] Bilirubin, Direct 0.3 0.0 - 0.3 mg/dL LAB CHEMISTRY METHOD 07/12/2024 3:26 PM [facility] Bilirubin, Indirect 0.3 0.0 - 1.1 mg/dL LAB CHEMISTRY METHOD 07/12/2024 3:26 PM [facility] ALT (SGPT) 39 10 - 60 unit/L LAB CHEMISTRY METHOD 07/12/2024 3:26 PM EST [facility] AST (SGOT) 36 10 - 42 unit/L LAB CHEMISTRY METHOD 07/12/2024 3:26 PM EST [facility] Alkaline Phosphatase 168(H) 42 - 121 unit/L LAB CHEMISTRY METHOD 07/12/2024 3:26 PM EST [facility] Blood Venous blood specimen / Unknown Venipuncture / Unknown 07/11/2024 6:21 AM EST 07/11/2024 6:42 AM EST Kwesi Guido MD LAB BLOOD ORDERABLES F inal Result [facility] [address] [place] [address], [place] [phone] * Immunoglobulins IgG, IgA, IgM (07/11/2024 6:21 AM EST) [facility] Total IgG 1,090 549 - 1,584 mg/dL LAB CHEMISTRY METHOD 07/11/2024 7:29 AM EST [facility] IgA 172 61 - 348 mg/dL LAB CHEMISTRY METHOD 07/11/2024 7:29 AM EST [facility] IgM 38 23 - 259 mg/dL LAB CHEMISTRY METHOD 07/11/2024 7:29 AM EST [facility] Blood Venous blood specimen / Unknown Venipuncture / Unknown 07/11/2024 6:21 AM EST 07/11/2024 6:42 AM EST Chencho Wayne MD LAB BLOOD ORDERABLES Final Resu lt [facility] [address] [place] [address], [place] [phone] * Immunofixation electrophoresis serum (07/11/2024 6:21 AM EST) [facility] Immunofixation Result, Serum Faint restriction of IgG [place], not observed on SPEP . Follow-up in 6 months if clinically indicated. LAB CHEMISTRY METHOD 07/13/2024 4:13 PM [facility] Blood Venous blood specimen / Unknown Venipuncture / Unknown 07/11/2024 6:21 AM EST 07/11/2024 6:43 AM EST us Chencho Wayne MD LAB BLOOD ORDERABLES Final Resu lt [facility] [address] [place] [address], [place] [phone] * (ABNORMAL) CBC auto differential (07/11/2024 6:21 AM EST) WBC 18.4(H) 4.8 - 10.8 K/mcL LAB HEMETOLOGY METHOD 07/11/2024 6:52 AM [facility] RBC 3.20(L) 3.80 - 4.80 M/mcL LAB HEMETOLOGY METHOD 07/11/2024 6:52 AM [facility] Hemoglobin 7.4(L) 11.5 - 16.0 g/dL LAB HEMETOLOGY METHOD 07/11/2024 6:52 AM [facility] Hematocrit 23.7(L) 35.0 - 47.0 % LAB HEMETOLOGY METHOD 07/11/2024 6:52 AM [facility] MCV 75.0(L) 79.0 - 98.0 FL LAB HEMETOLOGY METHOD 07/11/2024 6:52 AM [facility] MCH 23.4(L) 27.0 - 32.0 pcg LAB HEMETOLOGY METHOD 07/11/2024 6:52 AM [facility] MCHC 31.2(L) 32.0 - 37.0 g/dL LAB HEMETOLOGY METHOD 07/11/2024 6:52 AM [facility] RDW 20.2(H) 11.0 - 15.0 % LAB HEMETOLOGY METHOD 07/11/2024 6:52 AM [facility] Platelets 211 130 - 400 K/mcL LAB HEMETOLOGY METHOD 07/11/2024 6:52 AM [facility] MPV 9.1 7.0 - 11.0 FL LAB HEMETOLOGY METHOD 07/11/2024 6:52 AM [facility] LAB NRBC 0.0 <1.0 % LAB HEMETOLOGY METHOD 07/11/2024 6:52 AM [facility] LAB NRBC Absolute 0.00 <0.10 K/mcL LAB HEMETOLOGY METHOD 07/11/2024 6:52 AM [facility] Neutrophils Relative 86.2 % LAB HEMETOLOGY METHOD 07/11/2024 6:52 AM [facility] Lymphocytes Relative 3.0 % LAB HEMETOLOGY METHOD 07/11/2024 6:52 AM [facility] Monocytes Relative 5.9 % LAB HEMETOLOGY METHOD 07/11/2024 6:52 AM [facility] Eosinophils Relative 3.3 % LAB HEMETOLOGY METHOD 07/11/2024 6:52 AM [facility] Basophils Relative 0.2 % LAB HEMETOLOGY METHOD 07/11/2024 6:52 AM [facility] Immature Granulocytes Relative 1.4 % LAB HEMETOLOGY METHOD 07/11/2024 6:52 AM [facility] Neutrophils Absolute 15.84(H) 1.50 - 7.00 K/mcL LAB HEMETOLOGY METHOD 07/11/2024 6:52 AM [facility] Lymphocytes Absolute 0.56(L) 1.00 - 5.00 K/mcL LAB HEMETOLOGY METHOD 07/11/2024 6:52 AM [facility] Monocytes Absolute 1.09(H) 0.20 - 1.00 K/mcL LAB HEMETOLOGY METHOD 07/11/2024 6:52 AM EST [facility] Eosinophils Absolute 0.61(H) 0.00 - 0.50 K/[facility] LAB HEMETOLOGY METHOD 07/11/2024 6:52 AM EST [facility] Basophils Absolute 0.04 0.00 - 0.20 K/[facility] LAB HEMETOLOGY METHOD 07/11/2024 6:52 AM [facility] Immature Granulocytes Absolute 0.26(H) 0.00 - 0.03 K/[facility] LAB HEMETOLOGY METHOD 07/11/2024 6:52 AM [facility] Blood Venous blood specimen / Unknown Venipuncture / Unknown 07/11/2024 6:21 AM EST 07/11/2024 6:41 AM EST us Maria Alejandra Melendez MD LAB BLOOD ORDERABLES Final Res ult [facility] [address] [place] [address], * (ABNORMAL) Basic metabolic panel (07/11/2024 6:21 AM EST) Sodium 130(L) 133 - 145 mmol/L LAB CHEMISTRY METHOD 07/11/2024 7:27 AM [facility] Potassium 3.7 3.5 - 5.5 mmol/L LAB CHEMISTRY METHOD 07/11/2024 7:27 AM [facility] Chloride 102 96 - 110 mmol/L LAB CHEMISTRY METHOD 07/11/2024 7:27 AM [facility] CO2 19(L) 21 - 32 mmol/L LAB CHEMISTRY METHOD 07/11/2024 7:27 AM [facility] Anion Gap 9 3 - 11 LAB CHEMISTRY METHOD 07/11/2024 7:27 AM [facility] Glucose 174(H) 70 - 100 mg/dL LAB CHEMISTRY METHOD 07/11/2024 7:27 AM [facility] BUN 69(H) 5 - 25 mg/dL LAB CHEMISTRY METHOD 07/11/2024 7:27 AM [facility] Creatinine 4.36(H) 0.50 - 1.10 mg/dL LAB CHEMISTRY METHOD 07/11/2024 7:27 AM [facility] eGFR 10(L) >=60 mL/min/1. 73m2 LAB CHEMISTRY METHOD 07/11/2024 7:27 AM [facility] Comment:Calculation based on the??Chronic Kidney Disease Epidemiology Collaboration (CKD-EPI) equation refit??without adjustment for race. BUN/Creatinine Ratio 15.8 LAB CHEMISTRY METHOD 07/11/2024 7:27 AM [facility] Calcium 8.2(L) 8.5 - 10.5 mg/dL LAB CHEMISTRY METHOD 07/11/2024 7:27 AM [facility] Blood Venous blood specimen / Unknown Venipuncture / Unknown 07/11/2024 6:21 AM EST 07/11/2024 6:42 AM EST us Maria Alejandra Melendez MD LAB BLOOD ORDERABLES Final Res ult [facility] [address] [place] [address], * (ABNORMAL) POCT Glucose, blood (07/10/2024 8:33 PM EST) Glucose POCT 325(H) 70 - 100 mg/dL 07/10/2024 8:34 PM EST [facility] Blood Capillary blood specimen / Unknown 07/10/2024 8:33 PM EST 07/10/2024 8:35 PM EST us Maria Alejandra Melendez MD LAB POINT OF CARE TE ST DOCKED DEVICE UNSOLICITED RESULTS Final Result [facility] [address] [place] [address], [place] [phone] * (ABNORMAL) POCT Glucose, blood (07/10/2024 4:11 PM EST) Glucose POCT 287(H) 70 - 100 mg/dL 07/10/2024 4:12 PM EST [facility] Blood Capillary blood specimen / Unknown 07/10/2024 4:11 PM EST 07/10/2024 4:13 PM EST Maria Alejandra Melendez MD LAB POINT OF CARE TE ST DOCKED DEVICE UNSOLICITED RESULTS Final Result Performing Organization Address City/[facility]/ZIP Co de Phone Number [facility] [address] [place] [address], [place] [phone] * (ABNORMAL) POCT Glucose, blood (07/10/2024 11:29 AM EST) Glucose POCT 214(H) 70 - 100 mg/dL 07/10/2024 11:45 AM EST [facility] Blood Capillary blood specimen / Unknown 07/10/2024 11:29 AM EST 07/10/2024 11:47 AM EST Maria Alejandra Melendez MD LAB POINT OF CARE TE ST DOCKED DEVICE UNSOLICITED RESULTS Final Result [facility] [address] [place] [address], [place] [phone] * (ABNORMAL) POCT Glucose, blood (07/10/2024 8:40 AM EST) Glucose POCT 164(H) 70 - 100 mg/dL 07/10/2024 8:42 AM EST [facility] Blood Capillary blood specimen / Unknown 07/10/2024 8:40 AM EST 07/10/2024 8:43 AM EST Maria Alejandra Melendez MD LAB POINT OF CARE TE ST DOCKED DEVICE UNSOLICITED RESULTS Final Result Performing Organization Address [facility] Co de Phone Number [facility] [address] [place] [address], [place] [phone] * (ABNORMAL) Triiodothyronine free (07/10/2024 5:16 AM EST) T3, Free 154(L) 230 - 420 pcg/dL LAB CHEMISTRY METHOD 07/10/2024 2:10 PM EST [facility] Blood Venous blood specimen / Unknown Venipuncture / Unknown 07/10/2024 5:16 AM EST 07/10/2024 6:42 AM EST Maria Alejandra Melendez MD LAB BLOOD ORDERABLES Final Res ult Performing Organization Address [facility] Co de Phone Number [facility] [address] [place] [address], [place] [phone] * Thyroxine free (07/10/2024 5:16 AM EST) Free T4 0.92 0.70 - 1.80 ng/dL LAB CHEMISTRY METHOD 07/10/2024 2:04 PM EST [facility] Blood Venous blood specimen / Unknown Venipuncture / Unknown 07/10/2024 5:16 AM EST 07/10/2024 6:42 AM EST Maria Alejandra Melendez MD LAB BLOOD ORDERABLES Final Res ult Performing Organization Address City/[facility]/ZIP Co de Phone Number [facility] [address] [place] [address], [place] [phone] * (ABNORMAL) Parathyroid hormone intact (07/10/2024 5:16 AM EST) PTH 10.5(L) 18.5 - 88.0 pcg/mL LAB CHEMISTRY METHOD 07/10/2024 1:47 PM [facility] Blood Venous blood specimen / Unknown Venipuncture / Unknown 07/10/2024 5:16 AM EST 07/10/2024 6:42 AM EST us Maria Alejandra Melendez MD LAB BLOOD ORDERABLES Final Res ult [facility] [address] [place] [address], * (ABNORMAL) CBC auto differential (07/10/2024 5:16 AM EST) Pathologist [facility] WBC 16.9(H) 4.8 - 10.8 K/mcL LAB HEMETOLOGY METHOD 07/10/2024 7:29 AM [facility] RBC 3.30(L) 3.80 - 4.80 M/mcL LAB HEMETOLOGY METHOD 07/10/2024 7:29 AM [facility] Hemoglobin 7.6(L) 11.5 - 16.0 g/dL LAB HEMETOLOGY METHOD 07/10/2024 7:29 AM [facility] Hematocrit 24.4(L) 35.0 - 47.0 % LAB HEMETOLOGY METHOD 07/10/2024 7:29 AM [facility] MCV 74.4(L) 79.0 - 98.0 FL LAB HEMETOLOGY METHOD 07/10/2024 7:29 AM [facility] MCH 23.2(L) 27.0 - 32.0 pcg LAB HEMETOLOGY METHOD 07/10/2024 7:29 AM [facility] MCHC 31.1(L) 32.0 - 37.0 g/dL LAB HEMETOLOGY METHOD 07/10/2024 7:29 AM [facility] RDW 19.8(H) 11.0 - 15.0 % LAB HEMETOLOGY METHOD 07/10/2024 7:29 AM [facility] Platelets 277 130 - 400 K/mcL LAB HEMETOLOGY METHOD 07/10/2024 7:29 AM [facility] MPV 9.1 7.0 - 11.0 FL LAB HEMETOLOGY METHOD 07/10/2024 7:29 AM [facility] NRBC 0.0 <1.0 % LAB HEMETOLOGY METHOD 07/10/2024 7:29 AM [facility] NRBC Absolute 0.00 <0.10 K/mcL LAB HEMETOLOGY METHOD 07/10/2024 7:29 AM [facility] Neutrophils Relative 86.9 % LAB HEMETOLOGY METHOD 07/10/2024 7:29 AM [facility] Lymphocytes Relative 3.2 % LAB HEMETOLOGY METHOD 07/10/2024 7:29 AM [facility] Monocytes Relative 5.9 % LAB HEMETOLOGY METHOD 07/10/2024 7:29 AM [facility] Eosinophils Relative 2.8 % LAB HEMETOLOGY METHOD 07/10/2024 7:29 AM [facility] Basophils Relative 0.2 % LAB HEMETOLOGY METHOD 07/10/2024 7:29 AM [facility] Immature Granulocytes Relative 1.0 % LAB HEMETOLOGY METHOD 07/10/2024 7:29 AM [facility] Neutrophils Absolute 14.72(H) 1.50 - 7.00 K/mcL LAB HEMETOLOGY METHOD 07/10/2024 7:29 AM [facility] Lymphocytes Absolute 0.54(L) 1.00 - 5.00 K/mcL LAB HEMETOLOGY METHOD 07/10/2024 7:29 AM EST [facility] Monocytes Absolute 1.00 0.20 - 1.00 K/mcL LAB HEMETOLOGY METHOD 07/10/2024 7:29 AM EST [facility] Eosinophils Absolute 0.47 0.00 - 0.50 K/[facility] HEMETOLOGY METHOD 07/10/2024 7:29 AM EST [facility] Basophils Absolute 0.04 0.00 - 0.20 K/[facility] HEMETOLOGY METHOD 07/10/2024 7:29 AM EST [facility] Immature Granulocytes Absolute 0.17(H) 0.00 - 0.03 K/[facility] HEMETOLOGY METHOD 07/10/2024 7:29 AM [facility] Blood Venous blood specimen / Unknown Venipuncture / Unknown 07/10/2024 5:16 AM EST 07/10/2024 6:43 AM EST us Maria Alejandra Melendez MD LAB BLOOD ORDERABLES Final Res ult Performing Organization Address City/[facility]/ZIP Co de Phone Number [facility] [address] [place] [address], [place] [phone] * (ABNORMAL) Magnesium (07/10/2024 5:16 AM EST) Magnesium 1.8(L) 1.9 - 2.6 mg/dL LAB CHEMISTRY METHOD 07/10/2024 7:38 AM EST [facility] Blood Venous blood specimen / Unknown Venipuncture / Unknown 07/10/2024 5:16 AM EST 07/10/2024 6:42 AM EST Maria Alejandra Melendez MD LAB BLOOD ORDERABLES Final Res ult [facility] [address] [place] [address], [place] [phone] * (ABNORMAL) Basic metabolic panel (07/10/2024 5:16 AM EST) Sodium 133 133 - 145 mmol/L LAB CHEMISTRY METHOD 07/10/2024 7:39 AM [facility] Potassium 3.8 3.5 - 5.5 mmol/L LAB CHEMISTRY METHOD 07/10/2024 7:39 AM [facility] Chloride 105 96 - 110 mmol/L LAB CHEMISTRY METHOD 07/10/2024 7:39 AM [facility] CO2 20(L) 21 - 32 mmol/L LAB CHEMISTRY METHOD 07/10/2024 7:39 AM [facility] Anion Gap 8 3 - 11 LAB CHEMISTRY METHOD 07/10/2024 7:39 AM [facility] Glucose 167(H) 70 - 100 mg/dL LAB CHEMISTRY METHOD 07/10/2024 7:39 AM [facility] BUN 65(H) 5 - 25 mg/dL LAB CHEMISTRY METHOD 07/10/2024 7:39 AM [facility] Creatinine 4.19(H) 0.50 - 1.10 mg/dL LAB CHEMISTRY METHOD 07/10/2024 7:39 AM [facility] eGFR 10(L) >=60 mL/min/1. 73m2 LAB CHEMISTRY METHOD 07/10/2024 7:39 AM [facility] Comment:Calculation based on the??Chronic Kidney Disease Epidemiology Collaboration (CKD-EPI) equation refit??without adjustment for race. BUN/Creatinine Ratio 15.5 LAB CHEMISTRY METHOD 07/10/2024 7:39 AM [facility] Calcium 8.5 8.5 - 10.5 mg/dL LAB CHEMISTRY METHOD 07/10/2024 7:39 AM [facility] Blood Venous blood specimen / Unknown Venipuncture / Unknown 07/10/2024 5:16 AM EST 07/10/2024 6:42 AM EST us Maria Alejandra Melendez MD LAB BLOOD ORDERABLES Final Res ult [facility] [address] [place] [address], [place] [phone] * (ABNORMAL) POCT Glucose, blood (07/09/2024 7:52 PM EST) Glucose POCT 243(H) 70 - 100 mg/dL 07/09/2024 7:53 PM EST [facility] Blood Capillary blood specimen / Unknown 07/09/2024 7:52 PM EST 07/09/2024 7:54 PM EST us Maria Alejandra Melendez MD LAB POINT OF CARE TE ST DOCKED DEVICE UNSOLICITED RESULTS Final Result Performing Organization Address City/[facility]/ZIP Co de Phone Number [facility] [address] [place] [address], [place] [phone] * (ABNORMAL) POCT Glucose, blood (07/09/2024 4:27 PM EST) Glucose POCT 264(H) 70 - 100 mg/dL 07/09/2024 4:28 PM EST [facility] Blood Capillary blood specimen / Unknown 07/09/2024 4:27 PM EST 07/09/2024 4:29 PM EST us Maria Alejandra Melendez MD LAB POINT OF CARE TE ST DOCKED DEVICE UNSOLICITED RESULTS Final Result [facility] [address] [place] [address], [place] [phone] * (ABNORMAL) POCT Glucose, blood (07/09/2024 11:33 AM EST) Glucose POCT 179(H) 70 - 100 mg/dL 07/09/2024 11:34 AM EST [facility] Blood Capillary blood specimen / Unknown 07/09/2024 11:33 AM EST 07/09/2024 11:35 AM EST Maria Alejandra Melendez MD LAB POINT OF CARE TE ST DOCKED DEVICE UNSOLICITED RESULTS Final Result Performing Organization Address City/[facility]/ZIP Co de Phone Number [facility] [address] [place] [address], [place] [phone] * (ABNORMAL) POCT Glucose, blood (07/09/2024 8:59 AM EST) [facility] Glucose POCT 175(H) 70 - 100 mg/dL 07/09/2024 9:06 AM [facility] Blood Capillary blood specimen / Unknown 07/09/2024 8:59 AM EST 07/09/2024 9:08 AM EST us Maria Alejandra Melendez MD LAB POINT OF CARE TE ST DOCKED DEVICE UNSOLICITED RESULTS Final Result Performing Organization Address City/[facility]/ZIP Co de Phone Number [facility] [address] [place] [address], [place] [phone] * (ABNORMAL) CBC auto differential (07/09/2024 6:25 AM EST) Pathologist [facility] WBC 18.4(H) 4.8 - 10.8 K/mcL LAB HEMETOLOGY METHOD 07/09/2024 8:05 AM [facility] RBC 3.50(L) 3.80 - 4.80 M/mcL LAB HEMETOLOGY METHOD 07/09/2024 8:05 AM [facility] Hemoglobin 8.3(L) 11.5 - 16.0 g/dL LAB HEMETOLOGY METHOD 07/09/2024 8:05 AM [facility] Hematocrit 26.1(L) 35.0 - 47.0 % LAB HEMETOLOGY METHOD 07/09/2024 8:05 AM [facility] MCV 74.4(L) 79.0 - 98.0 FL LAB HEMETOLOGY METHOD 07/09/2024 8:05 AM [facility] MCH 23.6(L) 27.0 - 32.0 pcg LAB HEMETOLOGY METHOD 07/09/2024 8:05 AM [facility] MCHC 31.8(L) 32.0 - 37.0 g/dL LAB HEMETOLOGY METHOD 07/09/2024 8:05 AM [facility] RDW 19.2(H) 11.0 - 15.0 % LAB HEMETOLOGY METHOD 07/09/2024 8:05 AM [facility] Platelets 333 130 - 400 K/mcL LAB HEMETOLOGY METHOD 07/09/2024 8:05 AM [facility] MPV 9.1 7.0 - 11.0 FL LAB HEMETOLOGY METHOD 07/09/2024 8:05 AM [facility] NRBC 0.0 <1.0 % LAB HEMETOLOGY METHOD 07/09/2024 8:05 AM [facility] NRBC Absolute 0.00 <0.10 K/mcL LAB HEMETOLOGY METHOD 07/09/2024 8:05 AM [facility] Neutrophils Relative 89.0 % LAB HEMETOLOGY METHOD 07/09/2024 8:05 AM [facility] Lymphocytes Relative 2.8 % LAB HEMETOLOGY METHOD 07/09/2024 8:05 AM [facility] Monocytes Relative 6.1 % LAB HEMETOLOGY METHOD 07/09/2024 8:05 AM [facility] Eosinophils Relative 1.1 % LAB HEMETOLOGY METHOD 07/09/2024 8:05 AM [facility] Basophils Relative 0.2 % LAB HEMETOLOGY METHOD 07/09/2024 8:05 AM [facility] Immature Granulocytes Relative 0.8 % LAB HEMETOLOGY METHOD 07/09/2024 8:05 AM [facility] Neutrophils Absolute 16.38(H) 1.50 - 7.00 K/mcL LAB HEMETOLOGY METHOD 07/09/2024 8:05 AM [facility] Lymphocytes Absolute 0.52(L) 1.00 - 5.00 K/mcL LAB HEMETOLOGY METHOD 07/09/2024 8:05 AM [facility] Monocytes Absolute 1.13(H) 0.20 - 1.00 K/mcL LAB HEMETOLOGY METHOD 07/09/2024 8:05 AM [facility] Eosinophils Absolute 0.21 0.00 - 0.50 K/mcL LAB HEMETOLOGY METHOD 07/09/2024 8:05 AM [facility] Basophils Absolute 0.03 0.00 - 0.20 K/mcL LAB HEMETOLOGY METHOD 07/09/2024 8:05 AM [facility] Immature Granulocytes Absolute 0.14(H) 0.00 - 0.03 K/mcL LAB HEMETOLOGY METHOD 07/09/2024 8:05 AM [facility] Blood Venous blood specimen / Unknown Venipuncture / Unknown 07/09/2024 6:25 AM EST 07/09/2024 7:11 AM EST us Aye HEDRICK LAB BLOOD ORDERABLES Final Re sult [facility] [address] [place] [address], * Creatine kinase (07/09/2024 6:25 AM EST) Total CK 172 22 - 269 unit/L LAB CHEMISTRY METHOD 07/09/2024 8:11 AM EST [facility] Blood Venous blood specimen / Unknown Venipuncture / Unknown 07/09/2024 6:25 AM EST 07/09/2024 7:11 AM EST Aye HEDRICK LAB BLOOD ORDERABLES Final Re sult Performing Organization Address [facility]/ZIP Co de Phone Number [facility] [address] [place] [address], [place] [phone] * (ABNORMAL) Calcium, ionized (07/09/2024 6:25 AM EST) Calcium Ionized 5.66(H) 4.50 - 5.30 mg/dL 07/09/2024 7:23 AM EST [facility] Blood Venous blood specimen / Unknown Venipuncture / Unknown 07/09/2024 6:25 AM EST 07/09/2024 7:11 AM EST Aye [facility] LAB BLOOD ORDERABLES Final Re sult Performing Organization Address [facility]/ZIP Co de Phone Number [facility] [address] [place] [address], [place] [phone] * Magnesium (07/09/2024 6:25 AM EST) Magnesium 2.0 1.9 - 2.6 mg/dL LAB CHEMISTRY METHOD 07/09/2024 8:11 AM EST [facility] Blood Venous blood specimen / Unknown Venipuncture / Unknown 07/09/2024 6:25 AM EST 07/09/2024 7:11 AM EST Aye [facility] LAB BLOOD ORDERABLES Final Re sult Performing Organization Address City/[facility]/ZIP Co de Phone Number [facility] [address] [place] [address], [place] [phone] * (ABNORMAL) Basic metabolic panel (07/09/2024 6:25 AM EST) Sodium 131(L) 133 - 145 mmol/L LAB CHEMISTRY METHOD 07/09/2024 8:12 AM [facility] Potassium 3.8 3.5 - 5.5 mmol/L LAB CHEMISTRY METHOD 07/09/2024 8:12 AM [facility] Chloride 101 96 - 110 mmol/L LAB CHEMISTRY METHOD 07/09/2024 8:12 AM [facility] CO2 21 21 - 32 mmol/L LAB CHEMISTRY METHOD 07/09/2024 8:12 AM [facility] Anion Gap 9 3 - 11 LAB CHEMISTRY METHOD 07/09/2024 8:12 AM [facility] Glucose 170(H) 70 - 100 mg/dL LAB CHEMISTRY METHOD 07/09/2024 8:12 AM [facility] BUN 63(H) 5 - 25 mg/dL LAB CHEMISTRY METHOD 07/09/2024 8:12 AM [facility] Creatinine 4.07(H) 0.50 - 1.10 mg/dL LAB CHEMISTRY METHOD 07/09/2024 8:12 AM [facility] eGFR 11(L) >=60 mL/min/1. 73m2 LAB CHEMISTRY METHOD 07/09/2024 8:12 AM [facility] Comment:Calculation based on the??Chronic Kidney Disease Epidemiology Collaboration (CKD-EPI) equation refit??without adjustment for race. BUN/Creatinine Ratio 15.5 LAB CHEMISTRY METHOD 07/09/2024 8:12 AM [facility] Calcium 9.5 8.5 - 10.5 mg/dL LAB CHEMISTRY METHOD 07/09/2024 8:12 AM [facility] Blood Venous blood specimen / Unknown Venipuncture / Unknown 07/09/2024 6:25 AM EST 07/09/2024 7:11 AM EST us Aye HEDRICK LAB BLOOD ORDERABLES Final Re sult [facility] [address] [place] [address], [place] [phone] * XR Chest 1 View (07/08/2024 10:00 [...] Signed Date: 07/09/2024 09:03 ET Workstation ID: [id number] Transcribed By: Self Edit Transcribed Date: 07/09/2024 [...] Signed Date: 07/09/2024 09:03 ET Workstation ID: [id number] Transcribed By: Self Edit Transcribed Date: 07/09/2024 09:02 ET us Aye HEDRICK IMG XR PROCEDURES Final Resul t * Green LI heparin tube (07/08/2024 9:50 PM EST) Extra Tube Hold for add-ons. 07/09/2024 12:01 AM EST [facility] Comment:Auto resulted. Blood Venous blood specimen / Unknown 07/08/2024 9:50 PM EST 07/08/2024 10:41 PM EST Wayne Donahue MD LAB BLOOD ORDERABLES Final Re sult Performing Organization Address [facility]/ZIP Co de Phone Number [facility] [address] [place] [address], [place] [phone] * Culture blood (07/08/2024 9:49 PM EST) Pathologist [facility] Culture, Blood No growth at 5 days 07/13/2024 10:01 PM EST [facility] Blood Venous blood specimen / Unknown Venipuncture / Unknown 07/08/2024 9:49 PM EST 07/08/2024 9:54 PM EST Aye HEDRICK LAB MICROBIOLOGY - GENERAL OR DERABLES Final Result Performing Organization Address [facility]/ZIP Co de Phone Number [facility] [address] [place] [address], [place] [phone] * Lactate (07/08/2024 9:42 PM EST) Lactate 1.3 mmol/L 07/08/2024 10:30 PM EST [facility] Blood Venous blood specimen / Unknown Venipuncture / Unknown 07/08/2024 9:42 PM EST 07/08/2024 9:54 PM EST Aye HEDRICK LAB BLOOD ORDERABLES Final Re sult [facility] [address] [place] [address], [place] [phone] * Culture blood (07/08/2024 9:37 PM EST) [facility] Culture, Blood No growth at 5 days 07/13/2024 10:01 PM EST [facility] Blood Venous blood specimen / Unknown Venipuncture / Unknown 07/08/2024 9:37 PM EST 07/08/2024 9:56 PM EST Aye HEDR[facility] LAB MICROBIOLOGY - GENERAL OR DERABLES Final Result [facility] [address] [place] [address], [place] [phone] * (ABNORMAL) POCT Glucose, blood (07/08/2024 8:46 PM EST) [facility] Glucose POCT 264(H) 70 - 100 mg/dL 07/08/2024 8:46 PM EST [facility] Blood Capillary blood specimen / Unknown 07/08/2024 8:46 PM EST 07/08/2024 8:47 PM EST Wayne Donahue MD LAB POINT OF CARE TE ST DOCKED DEVICE UNSOLICITED RESULTS Final Result [facility] [address] [place] [address], [place] [phone] * (ABNORMAL) Basic metabolic panel (07/08/2024 8:30 PM EST) [facility] Sodium 130(L) 133 - 145 mmol/L LAB CHEMISTRY METHOD 07/08/2024 11:37 PM EST [facility] Potassium 4.0 3.5 - 5.5 mmol/L LAB CHEMISTRY METHOD 07/08/2024 11:37 PM EST [facility] Chloride 98 96 - 110 mmol/L LAB CHEMISTRY METHOD 07/08/2024 11:37 PM [facility] CO2 22 21 - 32 mmol/L LAB CHEMISTRY METHOD 07/08/2024 11:37 PM [facility] Anion Gap 10 3 - 11 LAB CHEMISTRY METHOD 07/08/2024 11:37 PM [facility] Glucose 261(H) 70 - 100 mg/dL LAB CHEMISTRY METHOD 07/08/2024 11:37 PM [facility] BUN 64(H) 5 - 25 mg/dL LAB CHEMISTRY METHOD 07/08/2024 11:37 PM [facility] Creatinine 4.32(H) 0.50 - 1.10 mg/dL LAB CHEMISTRY METHOD 07/08/2024 11:37 PM [facility] eGFR 10(L) >=60 mL/min/1. 73m2 LAB CHEMISTRY METHOD 07/08/2024 11:37 PM [facility] Comment:Calculation based on the??Chronic Kidney Disease Epidemiology Collaboration (CKD-EPI) equation refit??without adjustment for race. BUN/Creatinine Ratio 14.8 LAB CHEMISTRY METHOD 07/08/2024 11:37 PM [facility] Calcium 10.3 8.5 - 10.5 mg/dL LAB CHEMISTRY METHOD 07/08/2024 11:37 PM [facility] Blood Venous blood specimen / Unknown Venipuncture / Unknown 07/08/2024 8:30 PM EST 07/08/2024 8:37 PM EST us Aye HEDRICK LAB BLOOD ORDERABLES Final Re sult [facility] [address] [place] [address], * (ABNORMAL) Complete blood count (07/08/2024 8:30 PM EST) WBC 20.5(H) 4.8 - 10.8 K/mcL LAB HEMETOLOGY METHOD 07/08/2024 8:56 PM [facility] RBC 4.00 3.80 - 4.80 M/mcL LAB HEMETOLOGY METHOD 07/08/2024 8:56 PM [facility] Hemoglobin 9.2(L) 11.5 - 16.0 g/dL LAB HEMETOLOGY METHOD 07/08/2024 8:56 PM [facility] Hematocrit 30.0(L) 35.0 - 47.0 % LAB HEMETOLOGY METHOD 07/08/2024 8:56 PM [facility] MCV 75.8(L) 79.0 - 98.0 FL LAB HEMETOLOGY METHOD 07/08/2024 8:56 PM [facility] MCH 23.2(L) 27.0 - 32.0 pcg LAB HEMETOLOGY METHOD 07/08/2024 8:56 PM [facility] MCHC 30.7(L) 32.0 - 37.0 g/dL LAB HEMETOLOGY METHOD 07/08/2024 8:56 PM [facility] RDW 19.9(H) 11.0 - 15.0 % LAB HEMETOLOGY METHOD 07/08/2024 8:56 PM [facility] Platelets 332 130 - 400 K/mcL LAB HEMETOLOGY METHOD 07/08/2024 8:56 PM [facility] MPV 8.6 7.0 - 11.0 FL LAB HEMETOLOGY METHOD 07/08/2024 8:56 PM [facility] NRBC 0.0 <1.0 % LAB HEMETOLOGY METHOD 07/08/2024 8:56 PM [facility] NRBC Absolute 0.00 <0.10 K/mcL LAB HEMETOLOGY METHOD 07/08/2024 8:56 PM [facility] Blood Venous blood specimen / Unknown Venipuncture / Unknown 07/08/2024 8:30 PM EST 07/08/2024 8:37 PM EST [facility] BLOOD ORDERABLES Final Re sult Performing Organization Address [facility]/ZIP Co de Phone Number [facility] [address] [place] [address], [place] [phone] * (ABNORMAL) Electrolyte panel (07/08/2024 8:30 PM EST) [facility] Sodium 130(L) 133 - 145 mmol/L LAB CHEMISTRY METHOD 07/08/2024 11:37 PM EST [facility] Potassium 4.0 3.5 - 5.5 mmol/L LAB CHEMISTRY METHOD 07/08/2024 11:37 PM EST [facility] Chloride 98 96 - 110 mmol/L LAB CHEMISTRY METHOD 07/08/2024 11:37 PM EST [facility] CO2 22 21 - 32 mmol/L LAB CHEMISTRY METHOD 07/08/2024 11:37 PM EST [facility] Anion Gap 10 3 - 11 LAB CHEMISTRY METHOD 07/08/2024 11:37 PM EST [facility] Blood Venous blood specimen / Unknown Venipuncture / Unknown 07/08/2024 8:30 PM EST 07/08/2024 8:37 PM EST us Aye HED[place] LAB BLOOD ORDERABLES Final Re sult Performing Organization Address City/[facility]/ZIP Co de Phone Number [facility] [address] [place] [address], [place] [phone] * Transfuse RBC (07/08/2024 6:45 PM EST) us Raya HEDRICK BLOOD TRANSFUSION ORDIsidoro MARI Final Result * Transfuse RBC: 1 Units (07/08/2024 6:45 PM EST) Raya H[place] BLOOD TRANSFUSION ANNALISA MARI Final Result * (ABNORMAL) POCT Glucose, blood (07/08/2024 6:19 PM EST) [facility] Glucose POCT 276(H) 70 - 100 mg/dL 07/08/2024 6:19 PM EST [facility] Blood Capillary blood specimen / Unknown 07/08/2024 6:19 PM EST 07/08/2024 6:20 PM EST Wayne Donahue MD LAB POINT OF CARE TE ST DOCKED DEVICE UNSOLICITED RESULTS Final Result Performing Organization Address City/[facility]/ZIP Co de Phone Number [facility] [address] [place] [address], [place] [phone] * PATHOLOGIST REVIEW PROTEIN ELECTROPHORESIS (07/08/2024 5:52 PM EST) [facility] Pathologist Interpretation Reviewed by Rosenda Galeana MD 07/14/2024 9:21 AM EST [facility] Blood Venous blood specimen / Unknown Venipuncture / Unknown 07/08/2024 5:52 PM EST 07/08/2024 6:00 PM EST Aye H[place] LAB BLOOD ORDERABLES Final Re sult [facility] [address] [place] [address], [place] [phone] * Protein, total (07/08/2024 5:52 PM EST) [facility] Total Protein 6.4 6.0 - 8.0 g/dL LAB CHEMISTRY METHOD 07/08/2024 6:30 PM EST [facility] Blood Venous blood specimen / Unknown Venipuncture / Unknown 07/08/2024 5:52 PM EST 07/08/2024 6:00 PM EST us Aye HEDRICK LAB BLOOD ORDERABLES Final Re sult [facility] [address] [place] [address], * (ABNORMAL) Basic metabolic panel (07/08/2024 5:52 PM EST) Sodium 128(L) 133 - 145 mmol/L LAB CHEMISTRY METHOD 07/08/2024 6:50 PM EST [facility] Potassium 4.0 3.5 - 5.5 mmol/L LAB CHEMISTRY METHOD 07/08/2024 6:50 PM [facility] Chloride 96 96 - 110 mmol/L LAB CHEMISTRY METHOD 07/08/2024 6:50 PM [facility] CO2 25 21 - 32 mmol/L LAB CHEMISTRY METHOD 07/08/2024 6:50 PM [facility] Anion Gap 7 3 - 11 LAB CHEMISTRY METHOD 07/08/2024 6:50 PM [facility] Glucose 259(H) 70 - 100 mg/dL LAB CHEMISTRY METHOD 07/08/2024 6:50 PM [facility] BUN 67(H) 5 - 25 mg/dL LAB CHEMISTRY METHOD 07/08/2024 6:50 PM [facility] Creatinine 4.12(H) 0.50 - 1.10 mg/dL LAB CHEMISTRY METHOD 07/08/2024 6:50 PM [facility] eGFR 10(L) >=60 mL/min/1. 73m2 LAB CHEMISTRY METHOD 07/08/2024 6:50 PM [facility] Comment:Calculation based on the??Chronic Kidney Disease Epidemiology Collaboration (CKD-EPI) equation refit??without adjustment for race. BUN/Creatinine Ratio 16.3 LAB CHEMISTRY METHOD 07/08/2024 6:50 PM [facility] Calcium 10.8(H) 8.5 - 10.5 mg/dL LAB CHEMISTRY METHOD 07/08/2024 6:50 PM EST [facility] Blood Venous blood specimen / Unknown Venipuncture / Unknown 07/08/2024 5:52 PM EST 07/08/2024 6:00 PM EST Aye [facility] LAB BLOOD ORDERABLES Final Re sult Performing Organization Address [facility]/ZIP Co de Phone Number [facility] [address] [place] [address], [place] [phone] * (ABNORMAL) Serum albumin (07/08/2024 5:52 PM EST) Albumin 2.1(L) 3.2 - 5.0 g/dL LAB CHEMISTRY METHOD 07/08/2024 6:34 PM EST [facility] Blood Venous blood specimen / Unknown Venipuncture / Unknown 07/08/2024 5:52 PM EST 07/08/2024 6:00 PM EST Aye H[place] LAB BLOOD ORDERABLES Final Re sult Performing Organization Address [facility] de Phone Number [facility] [address] [place] [address], [place] [phone] * (ABNORMAL) Electrolyte panel (07/08/2024 5:52 PM EST) Sodium 128(L) 133 - 145 mmol/L LAB CHEMISTRY METHOD 07/08/2024 6:34 PM EST [facility] Potassium 4.0 3.5 - 5.5 mmol/L LAB CHEMISTRY METHOD 07/08/2024 6:34 PM EST [facility] Chloride 96 96 - 110 mmol/L LAB CHEMISTRY METHOD 07/08/2024 6:34 PM EST [facility] CO2 25 21 - 32 mmol/L LAB CHEMISTRY METHOD 07/08/2024 6:34 PM [facility] Anion Gap 7 3 - 11 LAB CHEMISTRY METHOD 07/08/2024 6:34 PM [facility] Blood Venous blood specimen / Unknown Venipuncture / Unknown 07/08/2024 5:52 PM EST 07/08/2024 6:00 PM EST us Aye H[place] LAB BLOOD ORDERABLES Final Re sult [facility] [address] [place] [address], [place] [phone] * (ABNORMAL) Protein electrophoresis, serum (07/08/2024 5:52 [...] LAB CHEMISTRY METHOD 07/14/2024 9:21 AM EST [facility] Blood Venous blood specimen / Unknown Venipuncture / Unknown 07/08/2024 5:52 PM EST 07/08/2024 6:00 PM EST us Aye HEDR[facility] LAB BLOOD ORDERABLES Final Re sult [facility] [address] [place] [address], [place] [phone] * [place] Retroperitoneal Complete (07/08/2024 4:30 PM EST) Anatomical Region Laterality Modality Body Ultrasound 07/10/2024 2:07 PM EST Impressions 07/10/2024 2:08 PM EST Normal appearance of the kidneys. -------- FINAL REPORT -------- Dictated By: Primo Dee Dictated Date: 07/10/2024 14:07 ET Assigned Physician: Primo Dee Reviewed and Electronically Signed By: Primo Dee Signed Date: 07/10/2024 14:08 ET Workstation ID: [id number] Transcribed By: Self Edit Transcribed Date: 07/10/2024 [...] Signed Date: 07/10/2024 14:08 ET Workstation ID: [id number] Transcribed By: Self Edit Transcribed Date: 07/10/2024 14:07 ET us Aye H[place] [facility] US PROCEDURES Final Resul t * Respiratory virus panel molecular study (07/08/2024 2:59 PM EST) Adenovirus Detection by PCR Not Detected Not Detected LAB MICROBIOLOGY METHOD 07/08/2024 4:18 PM [facility] Influenza A PCR Not Detected Not Detected LAB MICROBIOLOGY METHOD 07/08/2024 4:18 PM EST [facility] Influenza B PCR Not Detected Not Detected LAB MICROBIOLOGY METHOD 07/08/2024 4:18 PM [facility] Coronavirus 229E Not Detected Not Detected LAB MICROBIOLOGY METHOD 07/08/2024 4:18 PM [facility] Coronavirus HKU1 Not Detected Not Detected LAB MICROBIOLOGY METHOD 07/08/2024 4:18 PM EST [facility] Coronavirus OC43 Not Detected Not Detected LAB MICROBIOLOGY METHOD 07/08/2024 4:18 PM [facility] Coronavirus NL63 Not Detected Not Detected LAB MICROBIOLOGY METHOD 07/08/2024 4:18 PM [facility] Parainfluenza Virus 1 Not Detected Not Detected LAB MICROBIOLOGY METHOD 07/08/2024 4:18 PM [facility] Parainfluenza Virus 2 Not Detected Not Detected LAB MICROBIOLOGY METHOD 07/08/2024 4:18 PM [facility] Parainfluenza Virus 3 Not Detected Not Detected LAB MICROBIOLOGY METHOD 07/08/2024 4:18 PM EST [facility] Parainfluenza Virus 4 Not [...] 2:59 PM EST 07/08/2024 3:15 PM EST [facility] - 07/08/2024 4:18 PM EST Testing was performed using the Voxifye Respiratory Pathogen PCR Assay. All results must [...] - GENERAL OR DERABLES Final Result [facility] [address] [place] [address], * XR Chest 2 Views (07/08/2024 2:01 PM EST) Anatomical Region Laterality Modality Body Radiographic Jennifer ging 07/08/2024 2:06 PM EST Impressions 07/08/2024 2:07 PM EST No acute findings. -------- FINAL REPORT -------- Dictated By: Henrique Bray Dictated Date: 07/08/2024 14:06 ET Assigned Physician: Henrique Bray Reviewed and Electronically Signed By: Henrique Bray Signed Date: 07/08/2024 14:07 ET Workstation ID: [id number] Transcribed By: Self Edit Transcribed Date: 07/08/2024 [...] Signed Date: 07/08/2024 14:07 ET Workstation ID: [id number] Transcribed By: Self Edit Transcribed Date: 07/08/2024 14:06 ET Jj Wolfe MD IMG XR PROCEDURES Final R esult * Type and screen (07/08/2024 1:18 PM EST) ABO Group O 07/08/2024 2:42 PM EST [facility] Rh Type Positive 07/08/2024 2:42 PM EST [facility] Antibody Screen Negative 07/08/2024 2:42 PM EST [facility] Blood Venous blood specimen / Unknown Venipuncture / Unknown 07/08/2024 1:18 PM EST 07/08/2024 1:34 PM EST Raya H[place] LAB BLOOD BANK TEST OR DERABLES Final Result [facility] [address] [place] [address], * (ABNORMAL) Troponin I high sensitivity (07/08/2024 1:18 PM EST) Pathologist [facility] High Sensitivity Troponin I 81(H) <=54 ng/L LAB CHEMISTRY METHOD 07/08/2024 2:17 PM EST [facility] Blood Venous blood specimen / Unknown Venipuncture / Unknown 07/08/2024 1:18 PM EST 07/08/2024 1:34 PM EST Narrative [facility] - 07/08/2024 2:17 PM EST High levels of biotin in samples may falsely decrease hsTroponin values. ??Use caution when interpreting hsTroponin results in patients taking biotin who exhibit renal impairment (eGFR <60) or in patients taking more than 20 mg/day of biotin. Jj Wolfe MD LAB BLOOD ORDERABLES [place] l Result [facility] [address] [place] [address], * Prepare RBC: 1 Units (07/08/2024 1:17 PM EST) Product Code [id number] 07/08/2024 4:13 PM EST [facility] Unit Number [id number] 07/08/19 4:13 PM EST [facility] Crossmatch Compatible 07/08/2024 2:53 PM [facility] Dispense Status Transfused 07/08/2024 4:13 PM [facility] Unit ABO Rh OPOS 07/08/2024 4:13 PM [facility] Unit Expiration Date Time [id number] 07/08/2024 4:13 PM [facility] Unit Blood Type 5100 07/08/2024 4:13 PM [facility] Blood Venous blood specimen / Unknown 07/08/2024 1:17 PM EST 06/17/2024 10:17 AM EST Raya HEDRICK BLOOD BANK PRODUCT ORD ERABLES Final Result [facility] [address] [place] [address], [place] [phone] * Culture urine (07/08/2024 12:59 PM EST) Pathologist [facility] Culture, Urine No growth 07/09/2024 10:44 AM EST [facility] Urine Urine specimen obtained by clean catch procedure / Unknown Non-blood Collection / Unknown 07/08/2024 12:59 PM EST 07/08/2024 1:21 PM EST Jj Wolfe MD LAB MICROBIOLOGY - GENERA L ORDERABLES Final Result Performing Organization Address [facility]/ZIP Co de Phone Number [facility] [address] [place] [address], [place] [phone] * Robertson urine culture tube (07/08/2024 12:59 PM EST) [facility] Extra Tube Hold for add-ons. 07/08/2024 3:02 PM EST [facility] Comment:Auto resulted. Urine Urine specimen obtained by clean catch procedure / Unknown Non-blood Collection / Unknown 07/08/2024 12:59 PM EST 07/08/2024 1:11 PM EST Jj Wolfe MD LAB URINE ORDERABLES [place] l Result Performing Organization Address [facility]/ZIP Co de Phone Number [facility] [address] [place] [address], [place] [phone] * (ABNORMAL) Urinalysis with reflex microscopic and culture (07/08/2024 12:59 PM EST) [facility] Specific [place] Urine 1.020 1.003 - 1.030 LAB URINALYSIS - AUTOMATED METHOD 07/08/2024 1:21 PM [facility] pH, Urine 5.5 5.0 - 8.0 pH LAB URINALYSIS - AUTOMATED METHOD 07/08/2024 1:21 PM [facility] Leukocytes, Urine Negative Negative LAB [...] MD LAB URINE ORDERABLES [place] l Result [facility] [address] [place] [address], * CT Head wo Contrast (07/08/2024 12:11 [...] Signed Date: 07/08/2024 12:23 ET Workstation ID: [id number] Transcribed By: Self Edit Transcribed Date: 07/08/2024 [...] Signed Date: 07/08/2024 12:23 ET Workstation ID: [id number] Transcribed By: Self Edit Transcribed Date: 07/08/2024 [...] Signed Date: 07/08/2024 12:27 ET Workstation ID: [id number] Transcribed By: Self Edit Transcribed Date: 07/08/2024 [...] examination was performed utilizing dose reduction techniques. [facility]: Chest CT 06/17/2024. FINDINGS: No [...] Signed Date: 07/08/2024 12:27 ET Workstation ID: [id number] Transcribed By: Self Edit Transcribed Date: 07/08/2024 12:24 ET Raya HEDRICK IMG CT PROCEDURES [place] l Result * (ABNORMAL) Creatine kinase and CKMB (07/08/2024 11:10 AM EST) Total CK 649(H) 22 - 269 unit/L LAB CHEMISTRY METHOD 07/08/2024 3:51 PM [facility] Comment:Hemolysis present CK-MB 13.1(H) 1.0 - 3.6 ng/mL LAB CHEMISTRY METHOD 07/08/2024 3:51 PM [facility] CK-MB Index 0.0 0.0 - 5.0 LAB CHEMISTRY METHOD 07/08/2024 3:51 PM [facility] Blood Venous blood specimen / Unknown Venipuncture / Unknown 07/08/2024 11:10 AM EST 07/08/2024 11:42 AM EST us Wayne Donahue MD LAB BLOOD ORDERABLES Final Re sult Performing Organization Address [facility]/ZIP Co de Phone Number [facility] [address] [place] [address], [place] [phone] * (ABNORMAL) Iron and TIBC (07/08/2024 11:10 AM EST) Iron 20(L) 40 - 150 mcg/dL LAB CHEMISTRY METHOD 07/08/2024 3:44 PM EST [facility] Comment:Hemolysis present TIBC 186(L) 250 - 450 mcg/dL LAB CHEMISTRY METHOD 07/08/2024 3:44 PM EST [facility] Iron Saturation 11(L) 15 - 50 % LAB CHEMISTRY METHOD 07/08/2024 3:44 PM EST [facility] Blood Venous blood specimen / Unknown Venipuncture / Unknown 07/08/2024 11:10 AM EST 07/08/2024 11:42 AM EST us Wayne Donahue MD LAB BLOOD ORDERABLES Final Re sult Performing Organization Address [facility] Co de Phone Number [facility] [address] [place] [address], [place] [phone] * (ABNORMAL) Ferritin (07/08/2024 11:10 AM EST) Ferritin 708(H) 8 - 252 ng/mL LAB CHEMISTRY METHOD 07/08/2024 3:51 PM EST [facility] Blood Venous blood specimen / Unknown Venipuncture / Unknown 07/08/2024 11:10 AM EST 07/08/2024 11:42 AM EST us Wayne Donahue MD LAB BLOOD ORDERABLES Final Re sult Performing Organization Address City/[facility]/ZIP Co de Phone Number [facility] [address] [place] [address], [place] [phone] * (ABNORMAL) Reticulocyte count (07/08/2024 11:10 AM EST) Retic Ct Abs 0.050 0.030 - 0.090 M/mcL LAB HEMETOLOGY METHOD 07/08/2024 2:52 PM EST [facility] Retic Ct Pct 1.4 0.7 - 1.7 % LAB HEMETOLOGY METHOD 07/08/2024 2:52 PM [facility] Immature Retic Fract 24.5(H) 2.3 - 15.9 % LAB HEMETOLOGY METHOD 07/08/2024 2:52 PM EST [facility] Reticulocyte Hemoglobin 22.5(L) >29.0 pcg LAB HEMETOLOGY METHOD 07/08/2024 2:52 PM [facility] Blood Venous blood specimen / Unknown Venipuncture / Unknown 07/08/2024 11:10 AM EST 07/08/2024 11:42 AM EST us Wayne Donahue MD LAB BLOOD ORDERABLES Final Re sult Performing Organization Address City/[facility]/ZIP Co de Phone Number [facility] [address] [place] [address], [place] [phone] * (ABNORMAL) Haptoglobin (07/08/2024 11:10 AM EST) Haptoglobin 570(H) 16 - 200 mg/dL LAB CHEMISTRY METHOD 07/08/2024 3:44 PM EST [facility] Blood Venous blood specimen / Unknown Venipuncture / Unknown 07/08/2024 11:10 AM EST 07/08/2024 11:42 AM EST us Wayne Donahue MD LAB BLOOD ORDERABLES Final Re sult [facility] [address] [place] [address], [place] [phone] * (ABNORMAL) Folate (07/08/2024 11:10 AM EST) Folate >20.0(H) 2.8 - 17.0 ng/ml LAB CHEMISTRY METHOD 07/08/2024 3:51 PM EST [facility] Blood Venous blood specimen / Unknown Venipuncture / Unknown 07/08/2024 11:10 AM EST 07/08/2024 11:42 AM EST us Wayne Donahue MD LAB BLOOD ORDERABLES Final Re sult [facility] [address] [place] [address], [place] [phone] * Vitamin B12 (07/08/2024 11:10 AM EST) Pathologist [facility] Vitamin B-12 384 250 - 900 pcg/mL LAB CHEMISTRY METHOD 07/08/2024 3:51 PM EST [facility] Blood Venous blood specimen / Unknown Venipuncture / Unknown 07/08/2024 11:10 AM EST 07/08/2024 11:42 AM EST us Wayne Donahue MD LAB BLOOD ORDERABLES Final Re sult [facility] [address] [place] [address], [place] [phone] * Cortisol (07/08/2024 11:10 AM EST) Cortisol 58.1 mcg/dL LAB CHEMISTRY METHOD 07/08/2024 3:38 PM EST [facility] Blood Venous blood specimen / Unknown Venipuncture / Unknown 07/08/2024 11:10 AM EST 07/08/2024 11:42 AM EST Narrative [facility] - 07/08/2024 3:38 PM EST CORTISOL REFERENCE RANGE ?? 8 AM SPEC: ??5.0-23.0 mcg/dL ?? 4 PM SPEC: ??3.0-16.0 mcg/dL ?? 8 PM SPEC: ??<5.0 mcg/dL us Wayne Donahue MD LAB BLOOD ORDERABLES Final Re sult Performing Organization Address [facility] Co de Phone Number [facility] [address] [place] [address], [place] [phone] * (ABNORMAL) Thyroid stimulating hormone (07/08/2024 11:10 AM EST) TSH 4.50(H) 0.40 - 4.00 mcIU/mL LAB CHEMISTRY METHOD 07/08/2024 3:31 PM EST [facility] Blood Venous blood specimen / Unknown Venipuncture / Unknown 07/08/2024 11:10 AM EST 07/08/2024 11:42 AM EST us Wayne Donahue MD LAB BLOOD ORDERABLES Final Re sult Performing Organization Address [facility] de Phone Number [facility] [address] [place] [address], [place] [phone] * Uric acid (07/08/2024 11:10 AM EST) Uric Acid 7.2 3.1 - 7.8 mg/dL LAB CHEMISTRY METHOD 07/08/2024 3:44 PM EST [facility] Blood Venous blood specimen / Unknown Venipuncture / Unknown 07/08/2024 11:10 AM EST 07/08/2024 11:42 AM EST us Wayne Donahue MD LAB BLOOD ORDERABLES Final Re sult Performing Organization Address [facility]/ZIP Co de Phone Number [facility] [address] [place] [address], [place] [phone] * (ABNORMAL) Osmolality (07/08/2024 11:10 AM EST) Osmolality Iván 307(H) 280 - 300 mOsm/kg LAB CHEMISTRY METHOD 07/08/2024 6:51 PM EST [facility] Blood Venous blood specimen / Unknown Venipuncture / Unknown 07/08/2024 11:10 AM EST 07/08/2024 11:42 AM EST us Wayne Donahue MD LAB BLOOD ORDERABLES Final Re sult Performing Organization Address [facility]/ZIP Co de Phone Number [facility] [address] [place] [address], [place] [phone] * (ABNORMAL) Parathyroid hormone intact (07/08/2024 11:10 AM EST) [facility] PTH 6.5(L) 18.5 - 88.0 pcg/mL LAB CHEMISTRY METHOD 07/08/2024 3:31 PM EST [facility] Blood Venous blood specimen / Unknown Venipuncture / Unknown 07/08/2024 11:10 AM EST 07/08/2024 11:42 AM EST us Wayne Donahue MD LAB BLOOD ORDERABLES Final Re sult Performing Organization Address [facility]/ZIP Co de Phone Number [facility] [address] [place] [address], [place] [phone] * (ABNORMAL) CBC auto differential (07/08/2024 11:10 AM EST) [facility] WBC 18.9(H) 4.8 - 10.8 K/mcL LAB HEMETOLOGY METHOD 07/08/2024 11:51 AM EST [facility] RBC 3.30(L) 3.80 - 4.80 M/mcL LAB HEMETOLOGY METHOD 07/08/2024 11:51 AM EST [facility] Hemoglobin 7.3(L) 11.5 - 16.0 g/dL LAB HEMETOLOGY METHOD 07/08/2024 11:51 AM [facility] Hematocrit 23.7(L) 35.0 - 47.0 % LAB HEMETOLOGY METHOD 07/08/2024 11:51 AM [facility] MCV 72.3(L) 79.0 - 98.0 FL LAB HEMETOLOGY METHOD 07/08/2024 11:51 AM [facility] MCH 22.3(L) 27.0 - 32.0 pcg LAB HEMETOLOGY METHOD 07/08/2024 11:51 AM [facility] MCHC 30.8(L) 32.0 - 37.0 g/dL LAB HEMETOLOGY METHOD 07/08/2024 11:51 AM [facility] RDW 16.4(H) 11.0 - 15.0 % LAB HEMETOLOGY METHOD 07/08/2024 11:51 AM [facility] Platelets 408(H) 130 - 400 K/mcL LAB HEMETOLOGY METHOD 07/08/2024 11:51 AM [facility] MPV 8.9 7.0 - 11.0 FL LAB HEMETOLOGY METHOD 07/08/2024 11:51 AM [facility] NRBC 0.0 <1.0 % LAB HEMETOLOGY METHOD 07/08/2024 11:51 AM [facility] NRBC Absolute 0.00 <0.10 K/mcL LAB HEMETOLOGY METHOD 07/08/2024 11:51 AM [facility] Neutrophils Relative 89.5 % LAB HEMETOLOGY METHOD 07/08/2024 11:51 AM [facility] Lymphocytes Relative 2.4 % LAB HEMETOLOGY METHOD 07/08/2024 11:51 AM [facility] Monocytes Relative 7.0 % LAB HEMETOLOGY METHOD 07/08/2024 11:51 AM EST [facility] Eosinophils Relative 0.2 % LAB HEMETOLOGY METHOD 07/08/2024 11:51 AM [facility] Basophils Relative 0.2 % LAB HEMETOLOGY METHOD 07/08/2024 11:51 AM [facility] Immature Granulocytes Relative 0.7 % LAB HEMETOLOGY METHOD 07/08/2024 11:51 AM EST [facility] Neutrophils Absolute 16.86(H) 1.50 - 7.00 K/mcL LAB HEMETOLOGY METHOD 07/08/2024 11:51 AM [facility] Lymphocytes Absolute 0.46(L) 1.00 - 5.00 K/mcL LAB HEMETOLOGY METHOD 07/08/2024 11:51 AM [facility] Monocytes Absolute 1.32(H) 0.20 - 1.00 K/mcL LAB HEMETOLOGY METHOD 07/08/2024 11:51 AM [facility] Eosinophils Absolute 0.04 0.00 - 0.50 K/mcL LAB HEMETOLOGY METHOD 07/08/2024 11:51 AM EST [facility] Basophils Absolute 0.04 0.00 - 0.20 K/mcL LAB HEMETOLOGY METHOD 07/08/2024 11:51 AM [facility] Immature Granulocytes Absolute 0.13(H) 0.00 - 0.03 K/mcL LAB HEMETOLOGY METHOD 07/08/2024 11:51 AM EST [facility] Blood Venous blood specimen / Unknown Venipuncture / Unknown 07/08/2024 11:10 AM EST 07/08/2024 11:42 AM EST us Jj Wolfe MD LAB BLOOD ORDERABLES [place] Result [facility] [address] [place] [address], * B-type natriuretic peptide (07/08/2024 11:10 AM EST) [facility] BNP 86 <=100 pcg/mL LAB CHEMISTRY METHOD 07/08/2024 12:26 PM EST [facility] Blood Venous blood specimen / Unknown Venipuncture / Unknown 07/08/2024 11:10 AM EST 07/08/2024 11:42 AM EST Jj Wolfe MD LAB BLOOD ORDERABLES America l Result [facility] [address] [place] [address], [place] [phone] * Magnesium (07/08/2024 11:10 AM EST) [facility] Magnesium 2.1 1.9 - 2.6 mg/dL LAB CHEMISTRY METHOD 07/08/2024 12:54 PM EST [facility] LAB Comment:Hemolysis present Blood Venous blood specimen / Unknown Venipuncture / Unknown 07/08/2024 11:10 AM EST 07/08/2024 11:42 AM EST Jj Wolfe MD LAB BLOOD ORDERABLES America l Result [facility] [address] [place] [address], [place] [phone] * (ABNORMAL) Lipase (07/08/2024 11:10 AM EST) [facility] Lipase <10(L) 13 - 75 unit/L LAB CHEMISTRY METHOD 07/08/2024 12:54 PM EST [facility] Blood Venous blood specimen / Unknown Venipuncture / Unknown 07/08/2024 11:10 AM EST 07/08/2024 11:42 AM EST Jj Wolfe MD LAB BLOOD ORDERABLES America angelica Result [facility] [address] [place] [address], * (ABNORMAL) Comprehensive metabolic panel (07/08/2024 11:10 [...] 07/08/2024 12:54 PM [facility] Alkaline Phosphatase 149(H) 42 - 121 unit/L LAB CHEMISTRY METHOD 07/08/2024 12:54 PM [facility] Total Protein 6.3 6.0 - 8.0 g/dL LAB CHEMISTRY METHOD 07/08/2024 12:54 PM [facility] Albumin 2.1(L) 3.2 - 5.0 g/dL LAB CHEMISTRY METHOD 07/08/2024 12:54 PM [facility] Total Bilirubin 0.4 0.0 - 1.4 mg/dL LAB CHEMISTRY METHOD 07/08/2024 12:54 PM [facility] Blood Venous blood specimen / Unknown Venipuncture / Unknown 07/08/2024 11:10 AM EST 07/08/2024 11:42 AM EST us Jj Wolfe MD LAB BLOOD ORDERABLES America l Result [facility] [address] [place] [address], * (ABNORMAL) Troponin I high sensitivity (07/08/2024 11:10 AM EST) High Sensitivity Troponin I 80(H) <=54 ng/L LAB CHEMISTRY METHOD 07/08/2024 12:20 PM [facility] Blood Venous blood specimen / Unknown Venipuncture / Unknown 07/08/2024 11:10 AM EST 07/08/2024 11:42 AM EST Narrative [facility] ([facility]) [facility] - 07/08/2024 12:20 PM [...] City/[facility]/ZIP Co de Phone Number [facility] ([facility] [address] [place] [address], [place] [phone] * ECG 12 lead (07/08/2024 10:46 AM EST) Ventricular Rate ECG 94 BPM GEMUSE Atrial Rate 94 BPM GEMUSE P-R Interval 196 ms GEMUSE QRS Duration 118 ms GEMUSE Q-T Interval 354 ms GEMUSE QTc 442 ms GEMUSE P Wave [place] 79 degrees GEMUSE R [place] 15 degrees GEMUSE T [place] 4 degrees GEMUSE ECG Interpretation Sinus rhythm [...] ECG ORDERABLES Final Result Performing Organization Address City/[facility]/ZIP Co de Phone Number GEMUSE * ECG-Outside (07/08/2024) Provider Onbase ECG ORDERABLES Final Result * ECG-Annotated (07/08/2024) Provider Onbase ECG ORDERABLES Final Result documented in this [...] 650 mg 650 mg, oral, Once, On Thu07/28/24 at 1400, For 1 dose, Give 30 to 60 minutes prior to rituximab-abbs infusion Given 07/28/2024 2:28 PM EST 650 mg acetaminophen (TYLENOL) tablet 650 mg 650 mg, oral, Once as needed, mild pain, headaches, fever - temperature GREATER than 38 C (100.4 F), Starting on Thu07/28/24 at 1140, For 1 dose albumin human [...] Every 6 hours scheduled, First dose on 07/13/24 at 1215, For 6 doses, FOR HYPOVOLEMIC [...] infusion 100 mL/hr, intravenous, Continuous, Starting on 07/11/24 at 1130 New Bag 07/12/2024 5:25 AM [...] 2 hours PRN, dry eyes, Starting on 07/08/24 at 1746 Given 08/05/2024 9:24 PM EST [...] (Given - Provider: María Hawk RN) 1145 (MAR Hold - Provider: Automatic Transfer Provider - Reason: Patient not available)1424 (MAR Unhold - Provider: Automatic Transfer Provider)2125 (Given - Provider: Katina Machuca RN) B [...] daily, First dose on Thu07/21/24 at 2100 0853 (Given - Provider: Jolene Cardona RN)2101 (Given - Provider: María Hawk RN) 0828 (Not Given - Provider: Jacquelin Davidson RN - Reason: Patient not available)1145 (AUG Hold - Provider: Automatic Transfer Provider - Reason: Patient not available)1424 ([facility] Unhold - Provider: Automatic Transfer Provider)2125 (Not [...] (Given - Provider: María Hawk RN) 1145 ([facility] Hold - Provider: Automatic Transfer Provider - Reason: Patient not available)1424 ([facility] Unhold - Provider: Automatic Transfer [...] or split. 0619 (Given - Provider: Lindsay Lagos, ILIR) 0651 (Given - Provider: María Hawk, RN)1145 ([facility] Hold - Provider: Automatic Transfer Provider - Reason: Patient not available)1424 ([facility] Unhold - Provider: Automatic Transfer Provider) 0617 (Given - Provider: Katina Machuca, ILIR) polyethylene glycol (MIRALAX) packet 17 g 17 g, oral, Daily, First dose on Thu07/09/24 at 0900, Bowel Regimen - for prevention of constipation 0853 (Given - Provider: Jolene Cardona, ILIR) 0828 (Not Given - Provider: Jacquelin Davidson RN - Reason: Patient not available)1145 ([facility] Hold - Provider: Automatic Transfer Provider - Reason: Patient not available)1424 ([facility] Unhold - Provider: Automatic Transfer Provider) 0929 (Not Given - Provider: Jacquelin Davidson RN - Reason: Other) predniSONE (DELTASONE) tablet 60 mg 60 mg, oral, Daily, First dose on 07/24/24 at 0900 0852 (Given - Provider: Jolene Cardona, ILIR) 0828 (Not Given - Provider: Jacquelin Davidson RN - Reason: Patient not available)1145 ([facility] Hold - Provider: Automatic Transfer Provider - Reason: Patient not available)1424 ([facility] Unhold - Provider: Automatic Transfer Provider) 0930 (Given - Provider: Jacquelin Davidson RN) sodium chloride 0.9 % flush 10 mL(Linked Group 1) 10 mL, intravenous, 2 times daily, First dose on Thu07/08/24 at 1445 0857 (Given - Provider: Jolene Cardona, ILIR)2109 (Given - Provider: María Hawk, RN) 0829 (Not Given - Provider: Jacquelin Davidson RN - Reason: Patient not available)1145 ([facility] Hold - Provider: Automatic Transfer Provider - Reason: Patient not available)1424 ([facility] Unhold - Provider: Automatic Transfer [...] Transfer Provider - Reason: Patient not available)1424 ([facility] Unhold - Provider: Automatic Transfer [...] (Given - Provider: María Hawk RN) 1145 ([facility] Hold - Provider: Automatic Transfer Provider - Reason: Patient not available)1424 ([facility] Unhold - Provider: Automatic Transfer Provider)2124 (Given - Provider: Katina Machuca, ILIR) acetaminophen (TYLENOL) tablet 650 mg 650 mg, oral, Once as needed, mild pain, headaches, fever - temperature GREATER than 38 C (100.4 F), Starting on Soco 07/28/24 at 1140, For 1 dose 1145 ([facility] Hold - Provider: Automatic Transfer Provider - Reason: Patient not available)1424 ([facility] Unhold - Provider: Automatic Transfer [...] unresolved -Administer with 8L of oxygen 1145 ([facility] Hold - Provider: Automatic Transfer Provider - Reason: Patient not available)1424 ([facility] Unhold - Provider: Automatic Transfer Provider) benzonatate (TESSALON) capsule 100 mg 100 mg, oral, 3 times daily PRN, cough, Starting on Thu07/15/24 at 0957, Cough Do not crush or chew., Indications: cough 1145 ([facility] Hold - Provider: Automatic Transfer Provider - Reason: Patient not available)1424 ([facility] Unhold - Provider: Automatic Transfer Provider) dextrose (D50W) 50% injection 12.5 g 12.5 g, intravenous, Every 15 min PRN, low blood sugar, moderate hypoglycemia *Patient is Unconscious, NPO, unable to swallow: BG 54 - 69 mg/dl*, Starting on Thu07/08/24 at 1649 1145 ([facility] Hold - Provider: Automatic Transfer Provider - Reason: Patient not available)1424 ([facility] Unhold - Provider: Automatic Transfer Provider) dextrose (D50W) 50% injection 25 g 25 g, intravenous, Every 15 min PRN, low blood sugar, severe hypoglycemia *Patient is Unconscious, NPO, unable to swallow: BG LESS than 54 mg/dL*, Starting on Thu07/08/24 at 1649 1145 ([facility] Hold - Provider: Automatic Transfer Provider - Reason: Patient not available)1424 ([facility] Unhold - Provider: Automatic Transfer Provider) dextrose 15 gram/60 mL oral solution 15 g 15 g, oral, Every 15 min PRN, low blood sugar, hypoglycemia *Patient conscious AND able to drink and swallow safely*, Starting on Thu07/08/24 at 1649 1145 ([facility] Hold - Provider: Automatic Transfer Provider - Reason: Patient not available)1424 ([facility] Unhold - Provider: Automatic Transfer Provider) dextrose 15 gram/60 mL oral solution 30 g 30 g, oral, Every 15 min PRN, low blood sugar, hypoglycemia *Patient conscious AND able to drink and swallow safely*, Starting on Thu07/08/24 at 1649 1145 ([facility] Hold - Provider: Automatic Transfer Provider - Reason: Patient not available)1424 ([facility] Unhold - Provider: Automatic Transfer [...] years of age, or with asthma 1145 ([facility] Hold - Provider: Automatic Transfer Provider - Reason: Patient not available)1424 ([facility] Unhold - Provider: Automatic Transfer [...] years of age, or with asthma 1145 ([facility] Hold - Provider: Automatic Transfer Provider - Reason: Patient not available)1424 ([facility] Unhold - Provider: Automatic Transfer Provider) EPINEPHrine (ADRENALIN) IM Kit - adult 0.3 mg 0.3 mg, intramuscular, Every 15 min PRN, anaphylaxis, For systolic BP LESS than 90 mmHg, Starting on Soco 07/28/24 at 1140, For 3 doses, May repeat every 15 minutes as needed for a maximum of 3 doses 1145 ([facility] Hold - Provider: Automatic Transfer Provider - Reason: Patient not available)1424 ([facility] Unhold - Provider: Automatic Transfer [...] push over at least 2 minutes 1145 ([facility] Hold - Provider: Automatic Transfer Provider - Reason: Patient not available)1424 ([facility] Unhold - Provider: Automatic Transfer Provider) Glucagon HCl (rDNA) injection 1 mg 1 mg, intramuscular, Once as needed, low blood sugar, severe hypoglycemia, Starting on Thu07/08/24 at 1649, For 1 dose 1145 ([facility] Hold - Provider: Automatic Transfer Provider - Reason: Patient not available)1424 ([facility] Unhold - Provider: Automatic Transfer Provider) hydrALAZINE (APRESOLINE) injection 10 mg 10 mg, intravenous, Every 6 hours PRN, systolic BP greater than:, SBP>160, Starting on Thu07/09/24 at 1504 1145 ([facility] Hold - Provider: Automatic Transfer Provider - Reason: Patient not available)1424 ([facility] Unhold - Provider: Automatic Transfer [...] -Generalized rash Administer over 2 minutes 1145 ([facility] Hold - Provider: Automatic Transfer Provider - Reason: Patient not available)1424 ([facility] Unhold - Provider: Automatic Transfer Provider) HYDROmorphone (PF) injection 0.5 mg 0.5 mg, intravenous, Every 3 hours PRN, severe pain or when therapies for moderate pain were not effective, Starting on Thu07/08/24 at 1437 1145 ([facility] Hold - Provider: Automatic Transfer Provider - Reason: Patient not available)1424 ([facility] Unhold - Provider: Automatic Transfer [...] up to 10 doses (0.4 mg) 1145 ([facility] Hold - Provider: Automatic Transfer Provider - Reason: Patient not available)1424 ([facility] Unhold - Provider: Automatic Transfer [...] (Given - Provider: María Hawk RN) 1145 ([facility] Hold - Provider: Automatic Transfer Provider - Reason: Patient not available)1424 ([facility] Unhold - Provider: Automatic Transfer Provider) oxyCODONE (ROXICODONE) immediate release tablet 5 mg 5 mg, oral, Every 4 hours PRN, moderate pain or when therapies for mild pain were not effective, Starting on Thu07/08/24 at 1437 1145 ([facility] Hold - Provider: Automatic Transfer Provider - Reason: Patient not available)1424 ([facility] Unhold - Provider: Automatic Transfer Provider) polyvinyl alcohol-povidone (PF) (ARTIFICIAL TEARS) 1.4-0.6 % ophthalmic solution 2 drop 2 drop, Both Eyes, Every 2 hours PRN, dry eyes, Starting on Thu07/08/24 at 1746 1122 (Given - Provider: Jolene Cardona, RN)210 (Given - Provider: María Hawk, RN) 1145 ([facility] Hold - Provider: Automatic Transfer Provider - Reason: Patient not available)142 ([facility] Unhold - Provider: Automatic Transfer Provider)2123 (Given - Provider: Katina Machuca, ILIR) sodium chloride 0.9 % bolus 500 mL 500 mL, intravenous, at 2,000 mL/hr, Administer over 15 Minutes, Once as needed, for hypotensive management (systolic BP below 90 mmHg), Starting on Soco 07/28/24 at 1140, For 1 dose, Run wide open and await physician orders 1145 ([facility] Hold - Provider: Automatic Transfer Provider - Reason: Patient not available)142 ([facility] Unhold - Provider: Automatic Transfer Provider) sodium chloride 0.9 % flush 10 mL(Linked Group 1) 10 mL, intravenous, As needed, line care, Starting on Thu07/08/24 at 1437 1145 ([facility] Hold - Provider: Automatic Transfer Provider - Reason: Patient not available)142 ([facility] Unhold - Provider: Automatic Transfer Provider) sodium chloride 0.9 % flush 10 mL(Linked Group 2) 10 mL, intravenous, As needed, line care, Starting on 07/23/24 at 1617 1145 ([facility] Hold - Provider: Automatic Transfer Provider - Reason: Patient not available)142 ([facility] Unhold - Provider: Automatic Transfer [...] each new unit of blood administered 1145 ([facility] Hold - Provider: Automatic Transfer Provider - Reason: Patient not available)142 ([facility] Unhold - Provider: Automatic Transfer [...] each new unit of blood administered 1145 ([facility] Hold - Provider: Automatic Transfer Provider - Reason: Patient not available)1424 ([facility] Unhold - Provider: Automatic Transfer [...] each new unit of blood administered 1145 ([facility] Hold - Provider: Automatic Transfer Provider - Reason: Patient not available)1424 ([facility] Unhold - Provider: Automatic Transfer [...] each new unit of blood administered 1145 ([facility] Hold - Provider: Automatic Transfer Provider - Reason: Patient not available)1424 ([facility] Unhold - Provider: Automatic Transfer [...] 1 07/21/2024 apixaban (ELIQUIS) tablet 10 mg heparin (UFH) bolus from inf usion 3,268 Units 1 07/20/2024 heparin (UFH) bolus from inf usion 6,536 Units 1 07/20/2024 insulin lispro injection 3 Units 1 07/17/19 heparin (UFH) bolus from inf usion 3,224 Units 2 07/16/2024 heparin infusion 100 units/mL in D5W 06/29 albumin human 25 % infusion 12.5 g 2024 hydrALAZINE (APRESOLINE) injection 10 mg 1 07/09/2024 dextrose (D50W) 50% injection 12.5 g 06/29 dextrose (D50W) 50% injection 25 g 1 2024 dextrose 15 gram/60 mL oral solution 15 g 07/08/2024 dextrose 15 gram/60 mL oral solution 30 g 07/08/2024 ferrous sulfate 300 mg (60 m g elemental iron)/5 mL liquid 300 mg 1 07/08/2024 Glucagon HCl (rDNA) injection 1 mg 2024 naloxone (NARCAN) injection 0.04 mg 1 [...] documented as of this encounter Care Teams Garment Inspector Relationship Specialty Start Date End Date Eloisa Vázquez DO [address] [facility] [place] [address] PCP - General 04/12/24 documented as of this encounter
--- OUTSIDE RECORDS SUMMARY | 2024-08-22 07:55 | XMS_ITS | Clinical Summary ---
Author Organization [facility] Address [address] [address] Phone Care Team Providers Care Home Energy Consultant Name Role Phone Eloisa Vázquez Primary Care Provider [phone] Encounters Date Type Department Care Team Description 08/17/2024 Treatment [facility] [address] [address] Anthony Norton MD 08/11/2024 Orders Only [facility] [address] [address] Anthony Norton MD ANCA associated vasculitis (HCC); 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) 08/08/2024 Treatment [facility] [address] [address] Anthony Norton MD 08/08/2024 Office Communication [facility] [address] [address] Anthony Norton MD ANCA associated vasculitis (HCC) (Primary Dx); 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) 07/28/2024 Telephone [facility] [address] [address] Maggy Mcgarry from Last 3 [...] Exam 08/08/2024 Diabetes: Hemoglobin A1C 11/05/2024 08/08/2024, 12/08/2023 Procedures Procedure Name Priority Date/Time Associated Diagnosis Comments LIH (HC) Routine 08/17/2024 3:00 AM EST GLUCOSE, RANDOM Routine 08/17/2024 3:00 AM EST BASIC METABOLIC PANEL BUNDLED (HC) Routine 08/17/2024 3:00 AM EST HEMOGLOBIN AND HEMATOCRIT, BLOOD Routine 08/17/2024 3:00 AM EST CREATININE CLEARANCE, URINE, 24 HOUR Routine 08/17/2024 3:00 AM EST LIH () Routine 08/10/2024 3:00 AM EST GLUCOSE, RANDOM [...] 3:00 AM EST BILIRUBIN, TOTAL Routine 08/08/2024 3:0 0 AM EST CREATININE, SERUM Routine 08/08/2024 3:0 [...] Results * (ABNORMAL) Basic Metabolic Panel Bundled (08/17/2024 3:00 AM EST) Only the most recent of2 resultswithin the time period is included. Sodium 140 136 - 145 mEq/L [facility] Potassium 3.9 3.4 - 5.0 mEq/L [facility] Chloride 106 98 - 107 mEq/L [facility] Bicarbonate (CO2) 28 21 - 31 mEq/L [facility] Anion Gap 6 3 - 14 mEq/L [facility] BUN 43(H) 7 - 25 mg/dL [facility] Calcium 8.6 8.6 - 10.3 mg/dL [facility] Creatinine 4.15(H) 0.55 - 1.02 mg/dL [facility] 08/17/2024 3:00 AM EST 08/19/2024 12:39 PM EST Anthony Norton MD LAB [id number] SOLICITED RESULTS Final Result [facility] [address] [place] [address] * LI (08/17/2024 3:00 AM EST) Only the most recent of3 resultswithin the time period is included. Lipemia Normal Normal [facility] Icterus Normal Normal [facility] Hemolysis Normal Normal [facility] 08/17/2024 3:00 AM EST 08/19/2024 12:39 PM EST us Anthony Norton MD LAB [id number] SOLICITED RESULTS Final Result Performing Organization Address [facility] Co de Phone Number [facility] [address] [place] [address] * (ABNORMAL) Creatinine clearance, urine, 24 hour (08/17/2024 3:00 AM EST) Patient Height (FT) 165.0 cm [facility] Dry Weight 69.0 kg [facility] Body Surface Area 1.76 m2 [facility] Comment:Body surface area es timated from Kimberli and Kimberli formula Creatinine 4.15(H) 0.55 - 1.02 mg/dL [facility] Urine Volume 300 mL [facility] Collection Interval, Ur 1,440 min [facility] Creatinine, Urine 27 mg/dL [facility] Comment:See 24 Hour Urine Cr eatinine for Reference Range in mg/24hr Creatinine renal clearance 1.3(L) 75.0 - 115.0 mL/min/1.7 3m2 [facility] 08/17/2024 3:00 AM EST 08/19/2024 12:39 PM EST Anthony Norton MD LAB URINE ORDERABLES Final Re sult Performing Organization Address [facility] de Phone Number [facility] [address] [place] [address] * (ABNORMAL) Hemoglobin and hematocrit (08/17/2024 3:00 AM EST) Hgb 8.0(L) 11.2 - 15.7 g/dL [facility] Hematocrit 25.9(L) 34.1 - 44.9 % [facility] Hemoglobin x 3 24.0(L) 33.6 - 47.1 g/dL [facility] 08/17/2024 3:00 AM EST 08/19/2024 12:34 PM EST Anthony Norton MD LAB BLOOD ORDERABLES Final Re sult Performing Organization Address [facility] Co de Phone Number [facility] [address] [place] [address] * (ABNORMAL) Glucose, random (08/17/2024 3:00 AM EST) Only the most recent of3 resultswithin the time period is included. Glucose 69(L) 74 - 109 mg/dL [facility] 08/17/2024 3:00 AM EST 08/19/2024 12:39 PM EST Anthony Norton MD LAB BLOOD ORDERABLES Final Re sult Performing Organization Address [facility] de Phone Number [facility] [address] [place] [address] * Confirmation Test HCV (08/08/2024 3:00 AM EST) Pathologist [facility] Hep C Ab Confirmation Not needed [facility] 08/08/2024 3:00 AM EST 08/09/2024 1:15 PM EST Anthony Norton MD LAB BLOOD ORDERABLES Final Re sult Performing Organization Address [facility] de Phone Number [facility] [address] [place] [address] * (ABNORMAL) Kt/V Natural Log, URR (08/08/2024 3:00 AM EST) Pathologist [facility] Treatment Time 185 min [facility] Pre-Weight, lb [...] PM EST us Anthony Norton MD LAB [id number] SOLICITED RESULTS Final Result Performing Organization Address [facility] de Phone Number [facility] [address] [place] [address] * (ABNORMAL) Calcium Phosphorus Product, Adjusted (08/08/2024 3:00 AM EST) Pathologist [facility] Albumin 3.2(L) 3.6 - 5.4 g/dL [facility] Calcium 8.8 8.6 - 10.3 mg/dL [facility] Phosphorus, Serum 4.4 2.5 - 5.0 mg/dL [facility] Ca*PO4 38.7 <55.0 mg2/dL2 [facility] Calcium, Adjusted Total 9.4 8.6 - 10.3 mg/dL [facility] CA*PO4 CORRCTD 41.4 <55.0 mg2/dL2 [facility] 08/08/2024 3:00 AM EST 08/09/2024 1:17 PM EST Antohny Norton MD LAB [id number] SOLICITED RESULTS Final Result Performing Organization Address [facility] de Phone Number [facility] [address] [place] [address] * HEPATITIS C ABS W/REFLEX RNA DETECTR (08/08/2024 3:00 AM EST) [facility] Hep C Virus Ab Non-Reacti ve Non-Reacti ve [facility] 08/08/2024 3:00 AM EST 08/09/2024 1:17 PM EST Anthony Norton MD LAB [id number] SOLICITED RESULTS Final Result Performing Organization Address [facility] de Phone Number [facility] [address] [place] [address] * Hepatitis B Surface Ag w/Reflex Confirmation (08/08/2024 3:00 AM EST) Pathologist [facility] Hep B Surface Antigen Negative Negative [facility] 08/08/2024 3:00 AM EST 08/09/2024 1:17 PM EST us Anthony Norton MD LAB BLOOD ORDERABLES Final Re sult Performing Organization Address [facility] de Phone Number [facility] [address] [place] [address] * (ABNORMAL) TSAT (08/08/2024 3:00 AM EST) Iron 34(L) 50 - 170 ug/dL [facility] Transferrin 126(L) 250 - 380 mg/dL [facility] TIBC 176(L) 211 - 406 ug/dL [facility] Iron Saturation (TSat) 19(L) 22 - 52 % [facility] 08/08/2024 3:00 AM EST 08/09/2024 1:17 PM EST us Anthony Norton MD LAB BLOOD ORDERABLES Final Re sult Performing Organization Address [facility] de Phone Number [facility] [address] [place] [address] * Hepatitis B Core Antibody, Total (08/08/2024 3:00 AM EST) HBc Total Ab, S Negative Negative [facility] 08/08/2024 3:00 AM EST 08/09/2024 1:17 PM EST Anthony Norton MD LAB BLOOD ORDERABLES Final Re sult Performing Organization Address [facility] de Phone Number [facility] [address] [place] [address] * Aluminum level (08/08/2024 3:00 AM EST) Aluminum 4 1 - 20 ug/L [facility] 08/08/2024 3:00 AM EST 08/09/2024 1:21 PM EST Anthony Norton MD LAB BLOOD ORDERABLES Final Re sult Performing Organization Address [facility] de Phone Number [facility] [address] [place] [address] * Vitamin D 25 Hydroxy (08/08/2024 3:00 AM EST) [facility] Vitamin D, 25-Hydroxy 38 30 - 100 ng/mL [facility] Comment: Status ? Adult ?? Pediatric Deficient: ? <20 ? <15 Insufficient: ??20-29 ?? 15-19 Sufficient: ?30-100 ??20-100 08/08/2024 3:00 AM EST 08/09/2024 1:17 PM EST Anthony Norton MD LAB BLOOD ORDERABLES Final Re sult Performing Organization Address [facility] Co de Phone Number [facility] [address] [place] [address] * (ABNORMAL) Hepatitis B Surface Antibody (08/08/2024 3:00 AM EST) [facility] Hep B Surface Antibody <4(A) mIU/mL [facility] Comment: Interpretation: <10: No Immunity >=10: Probable Immunity 08/08/2024 3:00 AM EST 08/09/2024 1:17 PM EST Anthony Norton MD LAB BLOOD ORDERABLES Final Re sult Performing Organization Address [facility] de Phone Number [facility] [address] [place] [address] * (ABNORMAL) CBC and Differential (08/08/2024 3:00 AM EST) [facility] DIFFERENTIAL MANUAL, 2 Not Indicated [facility] White [...] ORDERABLES Final Re sult Performing Organization Address [facility] de Phone Number [facility] [address] [place] [address] * Uric Acid (08/08/2024 3:00 AM EST) Uric Acid 5.0 2.3 - 6.6 mg/dL [facility] 08/08/2024 3:00 AM EST 08/09/2024 1:17 PM EST Anthony Norton MD LAB BLOOD ORDERABLES Final Re sult Performing Organization Address [facility] de Phone Number [facility] [address] [place] [address] * (ABNORMAL) ALT (08/08/2024 3:00 AM EST) ALT (SGPT) 8(L) 10 - 49 U/L [facility] 08/08/2024 3:00 AM EST 08/09/2024 1:17 PM EST Anthony Norton MD LAB BLOOD ORDERABLES Final Re sult Performing Organization Address [facility] de Phone Number [facility] [address] [place] [address] * AST (08/08/2024 3:00 AM EST) AST (SGOT) 11 <34 U/L [facility] 08/08/2024 3:00 AM EST 08/09/2024 1:17 PM EST Anthony Norton MD LAB BLOOD ORDERABLES Final Re sult Performing Organization Address [facility] Co de Phone Number [facility] [address] [place] [address] * (ABNORMAL) Protein, total (08/08/2024 3:00 AM EST) Total Protein 5.7(L) 6.4 - 8.9 g/dL [facility] 08/08/2024 3:00 AM EST 08/09/2024 1:17 PM EST Anthony Norton MD LAB BLOOD ORDERABLES Final Re sult Performing Organization Address [facility] de Phone Number [facility] [address] [place] [address] * Alkaline phosphatase (08/08/2024 3:00 AM EST) Alkaline Phosphatase 76 46 - 116 U/L [facility] 08/08/2024 3:00 AM EST 08/09/2024 1:17 PM EST Anthony Norton MD LAB BLOOD ORDERABLES Final Re sult Performing Organization Address [facility] de Phone Number [facility] [address] [place] [address] * (ABNORMAL) PTH, Intact (08/08/2024 3:00 AM EST) PTH, Intact 144(L) 160 - 721 pg/mL [facility] Comment: Suggested (KDIGO) ESRD maintenance range is two to nine times the upper normal limit (80.1 pg/mL) for the laboratory. 08/08/2024 3:00 AM EST 08/09/2024 1:17 PM EST Anthony Norton MD LAB BLOOD ORDERABLES Final Re sult Performing Organization Address [facility] de Phone Number [facility] [address] [address] * Magnesium (08/08/2024 3:00 AM EST) Magnesium 1.9 1.9 - 2.7 mg/dL [facility] 08/08/2024 3:00 AM EST 08/09/2024 1:17 PM EST Anthony Norton MD LAB BLOOD ORDERABLES Final Re sult Performing Organization Address [facility] de Phone Number [facility] [address] [address] * Lactate dehydrogenase (08/08/2024 3:00 AM EST) LDH 198 120 - 246 U/L [facility] 08/08/2024 3:00 AM EST 08/09/2024 1:17 PM EST Anthony Norton MD LAB BLOOD ORDERABLES Final Re sult Performing Organization Address [facility] Phone Number [facility] [address] [address] * (ABNORMAL) Hemoglobin A1c (08/08/2024 3:00 AM [...] Re sult Performing Organization Address [facility] Co de Phone Number [facility] [address] [place] [address] * (ABNORMAL) Ferritin (08/08/2024 3:00 AM EST) Ferritin 1,209(H) 10 - 291 ng/mL [facility] 08/08/2024 3:00 AM EST 08/09/2024 1:17 PM EST Anthony Norton MD LAB BLOOD ORDERABLES Final Re sult Performing Organization Address [facility] de Phone Number [facility] [address] [place] [address] * (ABNORMAL) Creatinine, serum (08/08/2024 3:00 AM EST) Creatinine 4.24(H) 0.55 - 1.02 mg/dL [facility] 08/08/2024 3:00 AM EST 08/09/2024 1:17 PM EST Anthony Norton MD LAB BLOOD ORDERABLES Final Re sult Performing Organization Address [facility] de Phone Number [facility] [address] [place] [address] * Bilirubin, total (08/08/2024 3:00 AM EST) Total Bilirubin 0.3 0.3 - 1.2 mg/dL [facility] 08/08/2024 3:00 AM EST 08/09/2024 1:17 PM EST Anthony Norton MD LAB BLOOD ORDERABLES Final Re sult Performing Organization Address [facility] de Phone Number [facility] [address] [place] [address] * (ABNORMAL) Lipid panel (08/08/2024 3:00 AM [...] Final Re sult [facility] [address] [place] [address] * Electrolyte panel (08/08/2024 3:00 AM EST) [...] ORDERABLES Final Re sult Performing Organization Address City/State/[facility] Co de Phone Number [facility] [address] [place] [address] from Last 3 Months Insurance [id number] MEDICARE Care Teams Home Energy Consultant Relationship Specialty Start Date End Date Eloisa Vázquez [address] [place] [address] PCP - General Internal Medicine 07/11/24
--- OUTSIDE RECORDS SUMMARY | 2024-08-22 07:55 | XMS_ITS | Encounter Summary ---
Author Organization [facility] Address [address] [place] [address] Care Team Providers Care Manager Operational Name Role Phone Eloisa Vázquez DO Primary Care Provider [phone] Reason for Visit * Reason Comments Follow-up Encounter Details Date Type Department Care Team (Late st Contact Info) Description 08/10/2024 10:00 AM EST Office Visit [facility] Hematology Oncology [address] [place] [phone] Jaime Grimaldo MD [address] [place] [address] Lung mass (Primary Dx); Normocytic anemia; Chronic [...] kidney disease) stage 4, GFR 15-29 ml/min ([facility]) Iron deficiency anemia Impaired renal function Type 2 diabetes mellitus without complication, without long-term current use of insulin (CMS/[facility]) Lung mass Pulmonary nodule Past Medical History: [...] Relation Name Status Father at age 54 [place] Mother at age 93 Osteoporosis, HTN, Arthritis Daughter Alive Healthy Son Alive Healthy Son Alive Healthy Brother at age 62 Brain tumor; lymphoma Brother at age 64 COPD Brother Alive COPD Brother [place] Sister Alive Healthy Sister Alive Healthy Sister [...] to me PLAN: Continue close follow-up with market research intern Patient will be seeing Dr. Navarro Patient will return to office if there is any malignancy diagnosed in her lung Jaime Grimaldo MD documented in this encounter Plan of Treatment Upcoming Encounters Date Type Department Care Team (Late st Contact Info) Description 08/22/2024 8:30 AM EST Appointment [facility] In[facility] [address] [facility] 2nd [place] [phone] 08/23/2024 3:00 PM EST Office Visit Gastroenterology - [address] [phone] Josiane Smith, HEAT PLANT SPECIALIST [address] [address] 09/05/2024 10:00 AM EDT Office Visit Endocrinology - [place] [address] [place] [address] Kathy Michelle PA [address] [place] [address] 09/06/2024 11:00 AM EDT Ancillary Procedure [facility] [address] [facility] [address] [place] [address] 10/06/2024 1:15 PM EDT Office Visit Internal Medicine - [facility] [address] [place] [address] Eloisa Vázquez DO [address] [place] [address] 11/14/2024 11:30 AM EDT Appointment [facility] CT Scan [address] [place] [phone] 12/01/2024 10:00 AM EDT Office Visit Thoracic Surgery - [place] [address] [facility] [address] [place] [phone] Cecily Montez MD [address] [address] documented as of this encounter Visit Diagnoses Diagnosis Lung mass- Primary Swelling, mass, or lump in chest Normocytic anemia Unspecified anemia Chronic renal failure, stage 5 (CMS/HCC) 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, not specified as acute or chronic, 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
--- OUTSIDE RECORDS SUMMARY | 2024-08-22 07:55 | XMS_ITS | Encounter Summary ---
Author Organization [facility] Address [address] [address] Phone Care Team Providers Care Product Steward Name Role Phone Eloisa Vázquez Primary Care Provider [phone] Encounter Details Date Type Department Care Team (Late st Contact Info) Description 08/11/2024 Orders Only [facility] [address] [address] Anthony Norton MD [address] [address] ANCA associated vasculitis (HCC); Acute [...] 2:52 PM EST Anthony Norton MD LAB [id number] SOLICITED RESULTS Final Result Performing Organization Address City/[facility]/ZIP Co de Phone Number [facility] [address] [place] [address] * (ABNORMAL) Glucose, random (08/10/2024 3:00 AM EST) Glucose 232(H) 74 - 109 mg/dL [facility] 08/10/2024 3:00 AM EST 08/11/2024 2:52 PM EST Anthony Norton MD LAB BLOOD ORDERABLES Final Re sult Performing Organization Address City/[facility]/ZIP Co de Phone Number [facility] [address] [place] [address] * (ABNORMAL) Basic Metabolic Panel Bundled (08/10/2024 [...] 2:52 PM EST Anthony Norton MD LAB [id number] SOLICITED RESULTS Final Result Performing Organization Address [facility] de Phone Number [facility] [address] [place] [address] * Aluminum level (08/08/2024 3:00 AM EST) Aluminum 4 1 - 20 ug/L [facility] 08/08/2024 3:00 AM EST 08/09/2024 1:21 PM EST Anthony Norton MD LAB BLOOD ORDERABLES Final Re sult Performing Organization Address [facility] de Phone Number [facility] [address] [place] [address] * Hepatitis B Core Antibody, Total (08/08/2024 3:00 AM EST) HBc Total Ab, S Negative Negative [facility] 08/08/2024 3:00 AM EST 08/09/2024 1:17 PM EST us Anthony Norton MD LAB BLOOD ORDERABLES Final Re sult Performing Organization Address [facility] de Phone Number [facility] [address] [place] [address] * Confirmation Test HCV (08/08/2024 3:00 AM EST) Pathologist [facility] Hep C Ab Confirmation Not needed [facility] 08/08/2024 3:00 AM EST 08/09/2024 1:15 PM EST Anthony Norton MD LAB BLOOD ORDERABLES Final Re sult Performing Organization Address [facility] de Phone Number [facility] [address] [place] [address] * HEPATITIS C ABS W/REFLEX RNA DETECTR (08/08/2024 3:00 AM EST) Pathologist [facility] Hep C Virus Ab Non-Reacti ve Non-Reacti ve [facility] 08/08/2024 3:00 AM EST 08/09/2024 1:17 PM EST Anthony Norton MD LAB [id number] SOLICITED RESULTS Final Result Performing Organization Address [facility] de Phone Number [facility] [address] [place] [address] * Hepatitis B Surface Ag w/Reflex Confirmation (08/08/2024 3:00 AM EST) Pathologist [facility] Hep B Surface Antigen Negative Negative [facility] 08/08/2024 3:00 AM EST 08/09/2024 1:17 PM EST Anthony Norton MD LAB BLOOD ORDERABLES Final Re sult Performing Organization Address [facility] de Phone Number [facility] [address] [place] [address] * Vitamin D 25 Hydroxy (08/08/2024 3:00 AM EST) Pathologist [facility] Vitamin D, 25-Hydroxy 38 30 - 100 ng/mL [facility] Comment: Status ? Adult ?? Pediatric Deficient: ? <20 ? <15 Insufficient: ??20-29 ?? 15-19 Sufficient: ?30-100 ??20-100 08/08/2024 3:00 AM EST 08/09/2024 1:17 PM EST us Anthony Norton MD LAB BLOOD ORDERABLES Final Re sult Performing Organization Address [facility] Co de Phone Number [facility] [address] [place] [address] * Uric Acid (08/08/2024 3:00 AM EST) Uric Acid 5.0 2.3 - 6.6 mg/dL [facility] 08/08/2024 3:00 AM EST 08/09/2024 1:17 PM EST Anthony Norton MD LAB BLOOD ORDERABLES Final Re sult Performing Organization Address [facility] de Phone Number [facility] [address] [place] [address] * (ABNORMAL) TSAT (08/08/2024 3:00 AM EST) Iron 34(L) 50 - 170 ug/dL [facility] Transferrin 126(L) 250 - 380 mg/dL [facility] TIBC 176(L) 211 - 406 ug/dL [facility] Iron Saturation (TSat) 19(L) 22 - 52 % [facility] 08/08/2024 3:00 AM EST 08/09/2024 1:17 PM EST Anthony Norton MD LAB BLOOD ORDERABLES Final Re sult Performing Organization Address [facility] de Phone Number [facility] [address] [place] [address] * (ABNORMAL) Protein, total (08/08/2024 3:00 AM EST) Total Protein 5.7(L) 6.4 - 8.9 g/dL [facility] 08/08/2024 3:00 AM EST 08/09/2024 1:17 PM EST Anthony Norton MD LAB BLOOD ORDERABLES Final Re sult Performing Organization Address [facility] de Phone Number [facility] [address] [place] [address] * Electrolyte panel (08/08/2024 3:00 AM EST) [...] Re sult Performing Organization Address [facility] de Phone Number [facility] [address] [place] [address] * Magnesium (08/08/2024 3:00 AM EST) Pathologist [facility] Magnesium 1.9 1.9 - 2.7 mg/dL [facility] 08/08/2024 3:00 AM EST 08/09/2024 1:17 PM EST Anthony Norton MD LAB BLOOD ORDERABLES Final Re sult Performing Organization Address [facility] de Phone Number [facility] [address] [place] [address] * (ABNORMAL) Lipid panel (08/08/2024 3:00 AM [...] City/[facility]/ZIP Co de Phone Number [facility] [address] [place] [address] * LIH (08/08/2024 3:00 AM EST) Lipemia Normal Normal [facility] Icterus Normal Normal [facility] Hemolysis Normal Normal [facility] 08/08/2024 3:00 AM EST 08/09/2024 1:17 PM EST us Anthony Norton MD LAB [id number] SOLICITED RESULTS Final Result Performing Organization Address [facility] Co de Phone Number [facility] [address] [place] [address] * Lactate dehydrogenase (08/08/2024 3:00 AM EST) LDH 198 120 - 246 U/L [facility] 08/08/2024 3:00 AM EST 08/09/2024 1:17 PM EST Anthony Norton MD LAB BLOOD ORDERABLES Final Re sult Performing Organization Address [facility] Co de Phone Number [facility] [address] [place] [address] * (ABNORMAL) Glucose, random (08/08/2024 3:00 AM EST) Glucose 124(H) 74 - 109 mg/dL [facility] 08/08/2024 3:00 AM EST 08/09/2024 1:17 PM EST Anthony Norton MD LAB BLOOD ORDERABLES Final Re sult Performing Organization Address [facility] Phone Number [facility] [address] [place] [address] * Bilirubin, total (08/08/2024 3:00 AM EST) Total Bilirubin 0.3 0.3 - 1.2 mg/dL [facility] 08/08/2024 3:00 AM EST 08/09/2024 1:17 PM EST Anthony Norton MD LAB BLOOD ORDERABLES Final Re sult Performing Organization Address [facility] de Phone Number [facility] [address] [place] [address] * (ABNORMAL) Creatinine, serum (08/08/2024 3:00 AM EST) Creatinine 4.24(H) 0.55 - 1.02 mg/dL [facility] 08/08/2024 3:00 AM EST 08/09/2024 1:17 PM EST Anthony Norton MD LAB BLOOD ORDERABLES Final Re sult Performing Organization Address [facility] de Phone Number [facility] [address] [place] [address] * AST (08/08/2024 3:00 AM EST) AST (SGOT) 11 <34 U/L [facility] 08/08/2024 3:00 AM EST 08/09/2024 1:17 PM EST Anthony Norton MD LAB BLOOD ORDERABLES Final Re sult Performing Organization Address [facility] de Phone Number [facility] [address] [place] [address] * (ABNORMAL) ALT (08/08/2024 3:00 AM EST) ALT (SGPT) 8(L) 10 - 49 U/L [facility] 08/08/2024 3:00 AM EST 08/09/2024 1:17 PM EST us Anthony Norton MD LAB BLOOD ORDERABLES Final Re sult Performing Organization Address [facility] Phone Number [facility] [address] [place] [address] * (ABNORMAL) Calcium Phosphorus Product, Adjusted (08/08/2024 [...] PM EST us Anthony Norton MD LAB [id number] SOLICITED RESULTS Final Result Performing Organization Address [facility] de Phone Number [facility] [address] [place] [address] * Alkaline phosphatase (08/08/2024 3:00 AM EST) Alkaline Phosphatase 76 46 - 116 U/L [facility] 08/08/2024 3:00 AM EST 08/09/2024 1:17 PM EST us Anthony Norton MD LAB BLOOD ORDERABLES Final Re sult Performing Organization Address [facility] de Phone Number [facility] [address] [place] [address] * (ABNORMAL) Hepatitis B Surface Antibody (08/08/2024 3:00 AM EST) Pathologist [facility] Hep B Surface Antibody <4(A) mIU/mL [facility] Comment: Interpretation: <10: No Immunity >=10: Probable Immunity 08/08/2024 3:00 AM EST 08/09/2024 1:17 PM EST us Anthony Norton MD LAB BLOOD ORDERABLES Final Re sult Performing Organization Address [facility] de Phone Number [facility] [address] [place] [address] * (ABNORMAL) Ferritin (08/08/2024 3:00 AM EST) Pathologist [facility] Ferritin 1,209(H) 10 - 291 ng/mL [facility] 08/08/2024 3:00 AM EST 08/09/2024 1:17 PM EST us Anthony Norton MD LAB BLOOD ORDERABLES Final Re sult Performing Organization Address [facility] de Phone Number [facility] [address] [place] [address] * (ABNORMAL) PTH, Intact (08/08/2024 3:00 AM EST) Pathologist [facility] PTH, Intact 144(L) 160 - 721 pg/mL [facility] Comment: Suggested (KDIGO) ESRD maintenance range is two to nine times the upper normal limit (80.1 pg/mL) for the laboratory. 08/08/2024 3:00 AM EST 08/09/2024 1:17 PM EST Anthony Norton MD LAB BLOOD ORDERABLES Final Re sult Performing Organization Address [facility] de Phone Number [facility] [address] [place] [address] * (ABNORMAL) Hemoglobin A1c (08/08/2024 3:00 AM [...] Re sult Performing Organization Address [facility] de Phone Number [facility] [address] [place] [address] * (ABNORMAL) Kt/V Natural Log, URR (08/08/2024 [...] 1:17 PM EST Anthony Norton MD LAB [id number] SOLICITED RESULTS Final Result [facility] [address] [place] [address] * (ABNORMAL) CBC and Differential (08/08/2024 3:00 [...] Final Re sult [facility] [address] [place] [address] documented in this encounter Visit Diagnoses Diagnosis ANCA associated vasculitis (HCC) 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) 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 documented in this encounter Care Teams Product Steward Relationship Specialty Start Date End Date Marie Vázquezmana [address] [place] [address] PCP - General Internal Medicine 07/11/24 documented as of this encounter
--- OUTSIDE RECORDS SUMMARY | 2024-08-22 07:55 | XMS_ITS | Encounter Summary ---
Author Organization [facility] Address [address] [place] [address] Care Team Providers Care Maintenance Worker Municipal Name Role Phone Marie Vázquezmankamryn CHERY Primary Care Provider [phone] Encounter Details Date Type Department Care Team (Late st Contact Info) Description 04/12/2024 1:41 PM EDT Hospital Encounter TH HISTORIC ENCOUNTERS EASTERN CONVERSION ONLY Jaime Grimaldo MD [address] [place] [address] Social History Tobacco Use Types Packs/Day Years [...] summerof this year while she was in [place] developed some respiratory infection/COVID, patient also have [...] issues, was seen by a physician in [place] (in urgent care clinic), CT scan of [...] Info) Description 08/22/2024 8:30 AM EST Appointment [facility] Infusion Center [address] [place] [phone] 08/23/2024 3:00 PM EST Office Visit Gastroenterology - [address] [place] [address] [place] [phone] Josiane Smith, JUNITO [address] [address] 09/05/2024 10:00 AM EDT Office Visit Endocrinology - [place] [address] [place] [address] Kathy Michelle PA [address] [place] [address] 09/06/2024 11:00 AM EDT Ancillary Procedure [facility] - [address] [facility] [address] [place] [address] 10/06/2024 1:15 PM EDT Office Visit Internal Medicine - [place] [address] [place] [address] Eloisa Vázquez DO [address] [place] [address] 11/14/2024 11:30 AM EDT Appointment [facility] CT Scan [address] [place] [address] 12/01/2024 10:00 AM EDT Office Visit Thoracic Surgery - [place] 299 [facility] [address] [place] [address] Cecily Montez MD [address] [facility] [address] [place] [address] documented as of this encounter Procedures Procedure Name Priority Date/Time Associated Diagnosis Comments HISTORICAL IMAGING SCAN RESULT 04/12/2024 ..MISCELLANEOUS REFERENCE LAB TEST 04/12/2024 documented in this encounter Results * Miscellaneous reference lab test (04/12/2024) us Provider Onbase MD LAB BLOOD ORDERABLES Final Re sult * HISTORICAL IMAGING SCAN RESULT (04/12/2024) Anatomical Region Laterality Modality Ultrasound us Provider Onbase IMG US PROCEDURES Final Resul t documented in this encounter Visit Diagnoses Not on filedocumented in this encounter Additional Health Concerns Infection Onset Date Last Indicated Resolved Time Respiratory Rule-Out 07/08/2024 07/08/2024 025 4:18 PM EST COVID-19 Rule-Out 07/08/2024 07/08/2024 07/08/2024 4:18 PM EST Tuberculosis Rule-Out 08/05/2024 08/05/2024 documented as of this encounter Care Teams Maintenance Worker Municipal Relationship Specialty Start Date End Date Eloisa Vázquez DO [address] [facility] [place] [address] PCP - General 04/12/24 documented as of this encounter
--- OUTSIDE RECORDS SUMMARY | 2024-08-22 07:55 | XMS_ITS | Encounter Summary ---
Author Organization [facility] Address [address] [address] Phone Care Team Providers Care Director Financial Analysis Name Role Phone Eloisa Vázquez Primary Care Provider [phone] Encounter Details Date Type Department Care Team (Late st Contact Info) Description 08/08/2024 Treatment [facility] [address] [address] Boni Pierce MD [address] [address] Social History Tobacco Use Types [...] kidney injury requiring renal replacement therapy. Attending Train Electronic Technician: BONI PIERCE MD Dialysis Location: [facility] Schedule: Shift: 1 ADDITIONAL COMMENT COMMENTS: [...] on filedocumented in this encounter Care Teams Director Financial Analysis Relationship Specialty Start Date End Date Eloisa Vázquez [address] [place] [address] PCP - General Internal Medicine 07/11/24 documented as of this encounter
--- OUTSIDE RECORDS SUMMARY | 2024-08-22 07:55 | XMS_ITS | Encounter Summary ---
Author Organization [facility] Address [address] [place] [address] Care Team Providers Care Project Superintendent Name Role Phone Marie Vázquezmankamryn CHERY Primary Care Provider [phone] Reason for Visit * Reason Onset Date Comments provider call back 08/09/2024 Encounter Details Date Type Department Care Team (Late st Contact Info) Description 08/09/2024 Telephone Nephrology - [place] [address] [place] [phone] Chencho Wayne MD [facility] [address] [place] [address] provider call back Social History [...] was seen by Dr Wayne at the [facility]. She was discharged last Thursday. She is on dialysis 3 times a day. She needs to see Dr Tone casas. There are no available appointments. Also please review message below. Call Dennise at: [phone] * Criseldakamryn Medina - 08/09/2024 9:12 AM EST Patients daughter is calling today because her mother was in the hospital and had a transfusion called Rituximab performed and was told she would need another one done around 08/11 or 08/12 but she wants to know if she schedules that through the senior living or if your office does that. Please advise her at [phone]. Also if she needs a sooner follow up appointment than what she has now documented in this encounter Plan of Treatment Upcoming Encounters Date Type Department Care Team (Late st Contact Info) Description 08/22/2024 8:30 AM EST Appointment [facility] Infusion Center [address] [facility] 2nd [place] [phone] 08/23/2024 3:00 PM EST Office Visit Gastroenterology - 299 [facility] [address] [phone] Josiane Smith, JUNITO [address] [address] 09/05/2024 10:00 AM EDT Office Visit Endocrinology - [place] [address] [place] [address] Kathy Michelle PA [address] [place] [address] 09/06/2024 11:00 AM EDT Ancillary Procedure [facility] - [facility] [address] [facility] [address] [place] [phone] 10/06/2024 1:15 PM EDT Office Visit Internal Medicine - [place] [address] [place] [address] Eloisa Vázquez DO [address] [place] [address] 11/14/2024 11:30 AM EDT Appointment [facility] CT Scan [address] [place] [phone] 12/01/2024 10:00 AM EDT Office Visit Thoracic Surgery - [place] [address] [facility] [address] [place] [phone] Cecily Montez MD [address] [facility] [address] [place] [address] documented as of this encounter Visit Diagnoses Not on filedocumented in this encounter Additional Health Concerns Infection Onset Date Last Indicated Resolved Time Tuberculosis Rule-Out 08/05/2024 08/05/2024 documented as of this encounter Care Teams Project Superintendent Relationship Specialty Start Date End Date Eloisa Vázquez DO [address] [place] [address] PCP - General 04/12/24 documented as of this encounter
--- OUTSIDE RECORDS SUMMARY | 2024-08-22 07:55 | XMS_ITS | Encounter Summary ---
Author Organization [facility] Address [address] [place] [address] Care Team Providers Care Gold Leaf Gilder Name Role Phone Eloisa Vázquez DO Primary Care Provider [phone] Reason for Referral * Imaging (Routine) - Authorized Specialty Diagnoses / Procedures Referred By Daksha godoy Referred To Contact Radiology Diagnoses Pulmonary nodule Procedures CT Chest wo Contrast Cecily Montez MD [address] [address] Phone: tel: fax: [facility] [address] [place] [address] Phone: tel: Referral ID Status Reason Start Date Expiration Date V isits Requested Visits Authorized [id number] Authorized 08/15/2024 08/15/2025 1 1 Reason for Visit * Reason Comments Post-op Visit Encounter Details Date Type Department Care Team ([facility] st Contact Info) Description 08/15/2024 1:30 PM EST Office Visit Thoracic Surgery - [place] [address] [facility] [address] [place] [phone] Cecily Montez MD 299 [facility] [address] [place] [address] Pulmonary nodule (Primary Dx); Lung mass Social [...] EST Thoracic Pathology Review Patient name Ana QUEVEDO 1945 Date of Visit: 08/15/2024 Care Team .Eloisa Vázquez DO Reason for Visit: Chief Complaint Patient presents with Post-op Visit Date of procedure: 08/05/2024 Type of procedure performed: Navigational bronchoscopy/EBUS Hospital procedure was performed: [facility] HPI Ms. Contreras is a 79 y.o. 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 Family History Problem [...] Description 08/22/2024 8:30 AM EST Appointment [facility] Center [address] [facility] 2nd [place] [address] 08/23/2024 3:00 PM EST Office Visit Gastroenterology - 299 [facility] 299 [facility] [address] [place] [address] Josiane Smith, HEEL VARNISHER [address] [address] 09/05/2024 10:00 AM EDT Office Visit Endocrinology - [place] [address] [place] [address] Kahty Michelle PA [address] [place] [address] 09/06/2024 11:00 AM EDT Ancillary Procedure [facility] - [facility] [address] [facility] 101 [place] [phone] 10/06/2024 1:15 PM EDT Office Visit Internal Medicine - [place] [address] [place] [address] Eloisa Vázquez DO [address] [place] [address] 11/14/2024 11:[address] [facility] CT Scan [address] [place] [phone] 12/01/2024 10:00 AM EDT Office Visit Thoracic Surgery - [place] 299 [facility] [address] [place] [phone] Cecily Montez MD [address] [address] Scheduled Orders Name Type Priority Associated Diagnoses Orde r Schedule CT Chest wo Contrast Imaging Routine Pulmonary nodule Expected: 11/12/2024, Expires: 08/15/2025 documented as of this encounter Visit Diagnoses Diagnosis Pulmonary nodule- Primary Other diseases of lung, not elsewhere classified Lung mass Swelling, mass, or lump in chest 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
--- OUTSIDE RECORDS SUMMARY | 2024-08-22 07:55 | XMS_ITS | Encounter Summary ---
Author Organization [facility] [address] Address [address] [place] [address] Care Team Providers Care Flask Fitter Name Role Phone Marie Vázquezmanakmryn CHERY Primary Care Provider [phone] Encounter Details Date Type Department Care Team (Late st Contact Info) Description 08/11/[address] [facility] [address] [place] [address] [address] [place] [address] Nalini Clark RN Social History [...] Discussed with Dennise that with mom at [facility] Dialysis treatments being MWF this time. documented in this encounter Plan of Treatment Upcoming Encounters Date Type Department Care Team (Late st Contact Info) Description 08/22/2024 8:30 AM EST Appointment [facility] [address] [facility] 2nd [place] [id number] 08/23/2024 3:00 PM EST Office Visit Gastroenterology - [address] [facility] [address] [phone] Josiane Smith, JUNITO [address] [address] 09/05/2024 10:00 AM EDT Office Visit Endocrinology - [place] [address] [place] [address] Kathy Michelle PA [address] [place] [address] 09/06/2024 11:00 AM EDT Ancillary Procedure [facility] 101 [address] [facility] [address] [place] [address] 10/06/2024 1:15 PM EDT Office Visit [facility] - [facility] [address] [place] [address] Eloisa Vázquez, DO [address] [place] [address] 11/14/2024 11:30 AM EDT Appointment [facility] CT Scan [address] [place] [phone] 12/01/2024 10:00 AM EDT Office Visit Thoracic Surgery - [place] [address] [phone] Cecily Montez MD [address] [address] documented as of this encounter Visit Diagnoses Not on filedocumented in this encounter Additional Health Concerns Infection Onset Date Last Indicated Resolved Time Tuberculosis Rule-Out 08/05/2024 08/05/2024 documented as of this encounter Care Teams Flask Fitter Relationship Specialty Start Date End Date Eloisa Vázquez DO [address] [facility] [place] [address] PCP - General 04/12/24 documented as of this encounter
--- OUTSIDE RECORDS SUMMARY | 2024-08-22 07:56 | XMS_ITS | Clinical Summary ---
Author Organization [facility] Address [address] [place] [address] Care Team Providers Care Advertising Executive Name Role Phone Eloisa Vázquez DO Primary Care Provider [phone] Allergies No known active allergies Medications cetirizine [...] 025 Active B complex-vitami n C-folic acid (NEPHRO-SAVITA) 0.8 mg tablet Take [...] Kana Fernández or Maribeth d/t onsite HD. [facility] accepting w family to provide HD transportation support. 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 She will need to see her pelt salter prior to procedure. Hypertension 06/01/2024 Hyperlipidemia 06/01/2024 [...] PM EST Office Visit Thoracic Surgery - [address] [place] [phone] Cecily Montez MD Pulmonary nodule (Primary Dx); Lung mass 08/11/2024 Telephone [facility] Infusion Center [address] [phone] Nalini Clark RN 08/10/2024 10:00 AM EST Office Visit [facility] Hematology Oncology [address] [place] [phone] Jaime Grimaldo MD Lung mass (Primary Dx); Normocytic anemia; Chronic renal failure, stage 5 (CMS/HCC) 08/09/2024 Telephone Nephrology [address] [phone] Chencho Wayne MD provider call back 08/05/2024 11:46 AM EST Anesthesia Event [facility] OR [address] [place] [phone] Monroe Kim MD 08/05/2024 11:30 AM EST - 08/05/2024 1:30 PM EST Surgery [facility] OR [address] [place] [phone] Cecily Montez MD Navigation bronchoscopy/EBUS [43920 (CPT??) +2 more] 08/01/2024 Telephone Internal Medicine - [address] [phone] Eloisa Vázquez, Forms/questionnaires (PFML) 07/08/2024 10:31 AM EST - 08/06/2024 1:09 PM EST Hospital Encounter [facility] Urology Unit [address] [place] [phone] Jj Wolfe MD Flores, Carlos M, MD Japaridze, Anna, MD Santoyo-Pacheco, Omar D, MD Kokosadze, MD Kaeren Musa James T, MD Seralathan, Manikandan, MD Anemia, unspecified type (Primary Dx); Hyponatremia; Acute on chronic renal insufficiency; Acute encephalopathy; Bilateral leg edema; Pulmonary nodule Discharge Disposition: Alf Facility 07/05/2024 Telephone [facility] - [facility] [address] [facility] 154 [place] [address] Primo Navarro MD Pre-op Visit 06/17/2024 9:56 AM EST - 06/17/2024 11:59 PM [facility] Hospital Encounter [facility] CT Scan [address] [place] [phone] Lung mass; Neoplasm Discharge Disposition: Home or Self Care 06/17/2024 8:20 AM EST Office Visit [facility] [address] [facility] 154 [place] [phone] Primo Navarro MD Primary hypertension (Primary Dx); Lung mass; Preoperative cardiovascular examination; PANIAGUA (dyspnea on exertion); Leg edema 06/14/2024 Telephone Thoracic Surgery [facility] 299 [facility] [address] [place] [phone] Cecily Montez MD Procedure ([facility] , ct scan) 06/13/2024 11:00 AM EST Consult Thoracic Surgery [facility] 299 [facility] [address] [place] [phone] Cecily Montez MD Lung mass (Primary Dx); Neoplasm 06/06/2024 8:20 AM EST Office Visit Endocrinology [address] [phone] Kathy Michelle PA Type 2 diabetes mellitus without complication, without long-term current use of insulin (CMS/HCC) (Primary Dx); CKD (chronic kidney disease) stage 4, GFR 15-29 ml/min (CMS/HCC); Primary hypertension 06/01/2024 11:15 AM EST Telemedicine Internal Medicine - [address] [phone] Eloisa Vázquez DO History of cancer of unknown primary site (Primary Dx); Impaired renal function; Type 2 diabetes mellitus without complication, without long-term current use of insulin (CMS/HCC); Hypertension, unspecified type; Hyperlipidemia, unspecified hyperlipidemia type; Iron deficiency anemia, unspecified iron deficiency anemia type 06/01/2024 Telephone Internal Medicine - [address] [phone] Eloisa Vázquez DO 05/30/2024 10:15 AM EST Office Visit [facility] Hematology Oncology [address] [place] [phone] Jaime Grimaldo MD Pulmonary nodules (Primary Dx); Normocytic anemia 05/23/2024 4:55 PM EST - 05/23/2024 11:59 PM EST Hospital Encounter [facility] Xray [address] [place] [address] Discharge Disposition: Home or Self Care 05/23/2024 11:59 AM EST - 05/23/2024 11:59 PM EST Hospital Encounter [facility] Interventional Radiology [address] [place] [address] Pulmonary nodules; Type 2 diabetes mellitus without complication, without long-term current use of insulin (CMS/HCC); CKD (chronic kidney disease) stage 4, GFR 15-29 ml/min (CMS/[facility]) Discharge Disposition: Home or Self Care from Last 3 Months Surgical History Surgery Date Site/Laterality Comments OTHER SURGICAL HISTORY 05/2012 PROCEDURE: ---- OTHER ----; COMMENT: lumbar microdiscectomy CATARACT EXTRACTION 2019 Bilateral PROCEDURE: HISTORICAL CATARACT REMOVAL Medical History Medical History Date Comments Diabetes mellitus, type 2 (CMS/HCC) 02/14/2014 DX:Diabetes mellitus, type 2 ([facility]) Hyperlipidemia 02/14/2014 DX:Hyperlipidemi a Hypertension 02/14/2014 DX:Hypertension Osteoporosis 02/14/2014 DX:Osteoporosis Family history of early CAD 03/01/2014 DX:F amily history of early CAD Decreased vision 11/29/2014 DX:Decreased vi daysi Family history of factor V Leiden mutation 2015 DX:Family history of factor V Leiden mutation Microalbuminuria 09/22/2016 DX:Microalbumin uria Lung nodule Blindness HL (hearing loss) Anemia Arthritis Joint pain DVT, lower extremity ([facility]) L EFT LEG History of renal dialysis [...] COPD Brother 3 Alive COPD Brother 4 MS Daughter Alive Healthy Father (Age 54) MS Mother (Age 93) Osteoporos is, HTN, Arthritis [...] 08/22/2024 8:30 AM EST Appointment [facility]fusion [facility] [address] [facility] [address] [place] [phone] 08/23/2024 3:00 PM EST Office Visit Gastroenterology - [address] [facility] [address] [place] [phone] Josiane Smith, JUNITO 299 [facility] [address] [place] [address] 09/05/2024 10:00 AM EDT Office Visit Endocrinology - [place] [address] [place] [phone] Kathy Michelle PA [address] [place] [address] 09/06/2024 11:00 AM EDT Ancillary Procedure [facility] [address] 300 [facility] 101 [place] [phone] 10/06/2024 1:15 PM EDT Office Visit Internal Medicine - [facility] 305 [place] [address] Eloisa Vázquez DO 305 [place] [address] 11/14/2024 11:30 AM EDT Appointment [facility] CT Scan [address] [place] [phone] 12/01/2024 10:00 AM EDT Office Visit Thoracic Surgery - [place] [address] [facility] [address] [phone] Cecily Montez MD [address] [address] Health Maintenance Due Date Last Done Comments [...] this topic Medical Devices Implanted Type Area Dock Superintendent Device Identifier Shelf Expiration Date Model / Serial / Lot Cath Dial W/Vt Kt [id number] Palindrome Precision - [id number] - [id number] Implanted:Qty: 1 on 07/15/2024 by Fela Palomo MD at [facility] Dialysis Catheters Left: Chest Wall [facility] [id number] 09/26/2028 [id number] 40P / [id number] / [id number] Sponge Surgifoam Gel 12 X 7mm - [id number] - [id number] Implanted:Qty: 1 on 05/23/2024 by Fela Palomo MD at [facility] Hemostasis Right: Lung J [employer] [id number] 08/27/20271971 [id number] / Sponge Surgifoam Gel 12 X 7mm - [id number] - [id number] Implanted:Qty: 1 on 07/22/2024 by Fela Palomo MD at [facility] Hemostasis Left: Kidney J [employer] [id number] 05/24/20281971 [id number] / Procedures Procedure Name Priority Date/Time Associated [...] ENDOTRACHEAL(NO CHARGE) Routine 08/05/2024 12:08 PM EST [facility] BRONCHOSCOPY RIGID/FLEXIBLE W/EBUS >=3 MEDIASTINAL/HILAR LYMPH NODES 08/05/2024 11:46 AM EST Pulmonary nodule VA BRONCHOSCOPY INCL FLUROSCOPIC GUIDANCE W PLCMNT FIDUCIAL MARKER SGL/MULT 08/05/2024 11:46 AM EST Pulmonary nodule VA BRONCHOSCOPY RIGID/FLEXIBLE INCL FLUORO W/THERAPY ASPIRATION INITIAL [...] BLOOD Routine 07/11/2024 8: 17 AM EST VA IMMUNOFIXATION ELECTROPHORESIS SERUM Routine 07/11/2024 6:21 AM [...] BLOOD Routine 07/08/2024 6: 19 PM EST VA PROTEIN ELECTROPHORETIC FRACTIONATION & QUANTITATION SERUM Routine [...] complication, without long-term current use of insulin ([facility]) CKD (chronic kidney disease) stage 4, GFR [...] nodules SALLY DEXA AXIAL SKELETON Routine 04/15/20 18 10:29 AM EDT Encounter for screening for osteoporosis from Last 3 Months or Most Recently Relevant to Health Maintenance Results * (ABNORMAL) POCT Glucose, blood (08/06/2024 11:07 AM EST) Only the most recent of114 resultswithin the time period is included. Glucose POCT 187(H) 70 - 100 mg/dL 08/06/2024 11:09 AM EST [facility] Blood Capillary blood specimen / Unknown 08/06/2024 11:07 AM EST 08/06/2024 11:10 AM EST us Steve Cruz MD LAB POINT OF CA RE TEST DOCKED DEVICE UNSOLICITED RESULTS Final Result [facility] [address] [place] [address], [place] [phone] * XR Chest 1 View (08/05/2024 1:43 [...] Signed Date: 08/05/2024 13:49 ET Workstation ID: [id number] Transcribed By: Self Edit Transcribed Date: 08/05/2024 [...] Signed Date: 08/05/2024 13:49 ET Workstation ID: [id number] Transcribed By: Self Edit Transcribed Date: 08/05/2024 13:46 ET Cecily Montez MD IMG XR PROCEDURES Final Result * Culture bronchial with gram stain (08/05/2024 12:32 PM EST) Bronchial Culture No growth at 3 days 08/08/2024 9:42 AM EST [facility] Gram Stain Result No polymorphonuclear leukocytes, No epithelial cells, and No organisms noted 08/08/2024 9:42 AM EST [facility] Wash Structure of upper lobe of right lung / Unknown 08/05/2024 12:32 PM EST 08/05/2024 1:17 PM EST us Cecily Montez MD LAB MICROBIOLOGY - GENERAL ORDER SYLVAIN Final Result Performing Organization Address City/[facility]/ZIP Co de Phone Number [facility] [address] [place] [address], [place] [phone] * Concentration (08/05/2024 12:32 PM EST) AFB Concentration Performed 3:05 PM EST [facility] Wash Structure of upper lobe of right lung / Unknown 08/05/2024 12:32 PM EST 08/05/2024 1:17 PM EST Narrative [facility] - 08/06/2024 3:05 PM EST Performed at: ??01 - [facility] [address] ??[id number] Pull Up Hand: Diane Belle MD, Phone: ??[phone] us Cecily Montez MD LAB BLOOD ORDERABLES Final Resul t Performing Organization Address [facility]/ZIP Co de Phone Number [facility] * Acid fast bacilli stain (08/05/2024 12:32 PM EST) AFB Stain Result No Acid fast bacilli seen on direct smear (Fuchsin method, 1000x) No Acid Fast Bacilli seen on direct smear 08/05/2024 2:18 PM EST [facility] Wash Structure of upper lobe of right lung / Unknown 08/05/2024 12:32 PM EST 08/05/2024 1:17 PM EST us Cecily Montez MD LAB MICROBIOLOGY - GENERAL ORDER SYLVAIN Final Result Performing Organization Address City/[facility]/ZIP Co de Phone Number [facility] [address] [place] [address], [place] [phone] * Non-gynecologic cytology (08/05/2024 12:20 PM EST) [...] lymph node elements present. 08/09/2024 1:04 PM [facility] Specimen A Adequacy Satisfactory for evaluation 08/09/2024 1:04 PM [facility] Specimen B Adequacy Satisfactory for evaluation 08/09/2024 1:04 PM [facility] Specimen C Adequacy Satisfactory for evaluation 08/09/2024 1:04 PM [facility] Specimen D Adequacy Satisfactory for evaluation 08/09/2024 1:04 PM [facility] Specimen E Adequacy Specimen processed and examined, but unsatisfactory for eval of abnormal epithelial 08/09/2024 1:04 PM [facility] Specimen F Adequacy Satisfactory for evaluation 08/09/2024 1:04 PM [facility] Gross Description A. Lung, Right [...] time 54 hours. 08/09/2024 1:04 PM EST [facility] Disclaimer Unless otherwise specified, all tissue is 10% NB formalin fixed and paraffin embedded. Technical cytopathology services provided by [facility], at [address] [place] [address] (CLIA # [id number]/Gladys Prince MD, Government Service Executive.) 08/09/2024 1:04 PM EST [facility] Brushing, function (observable entity) [...] MD LAB CYTOLOGY ORDERABLES Final Re sult [facility] ([facility] [address] [place] [address], [place] [phone] * TH AN ENDOTRACHEAL(NO CHARGE) (08/05/2024 12:08 PM EST) Narrative Candelaria Tatum CRNA - 08/05/2024 12:08 PM EST Candelaria Tatum CRNA ? 08/05/2024 12:10 PM General Information and Staff Patient location during procedure: OR Anesthesiologist: Monroe Kim MD Resident/END FRAZER: Candelaria Tatum CRNA Performed: resident/END FRAZER/CAA Performed by: Candelaria Tatum CRNA Authorized by: [...] mmol/L LAB CHEMISTRY METHOD 08/05/2024 8:01 AM [facility] Potassium 4.5 3.5 - 5.5 mmol/L LAB CHEMISTRY METHOD 08/05/2024 8:01 AM [facility] Chloride 96 96 - 110 mmol/L LAB CHEMISTRY METHOD 08/05/2024 8:01 AM [facility] CO2 32 21 - 32 mmol/L LAB CHEMISTRY METHOD 08/05/2024 8:01 AM [facility] Anion Gap 5 3 - 11 LAB CHEMISTRY METHOD 08/05/2024 8:01 AM [facility] Glucose 138(H) 70 - 100 mg/dL LAB CHEMISTRY METHOD 08/05/2024 8:01 AM [facility] BUN 53(H) 5 - 25 mg/dL LAB CHEMISTRY METHOD 08/05/2024 8:01 AM [facility] Creatinine 3.91(H) 0.50 - 1.10 mg/dL LAB CHEMISTRY METHOD 08/05/2024 8:01 AM [facility] eGFR 11(L) >=60 mL/min/1. 73m2 LAB CHEMISTRY METHOD 08/05/2024 8:01 AM [facility] Comment:Calculation based on the??Chronic Kidney Disease Epidemiology Collaboration (CKD-EPI) equation refit??without adjustment for race. BUN/Creatinine Ratio 13.6 LAB CHEMISTRY METHOD 08/05/2024 8:01 AM [facility] Calcium 8.4(L) 8.5 - 10.5 mg/dL LAB CHEMISTRY METHOD 08/05/2024 8:01 AM [facility] Blood Venous blood specimen / Unknown Venipuncture / Unknown 08/05/2024 7:04 AM EST 08/05/2024 7:34 AM EST Steve Cruz MD LAB BLOOD ORDERABLES Fi nal Result [facility] [address] [place] [address], * (ABNORMAL) CBC - Every 3 Days (08/05/2024 7:03 AM EST) Only the most recent of13 resultswithin the time period is included. WBC 8.8 4.8 - 10.8 K/mcL LAB HEMETOLOGY METHOD 08/05/2024 7:42 AM [facility] RBC 2.90(L) 3.80 - 4.80 M/mcL LAB HEMETOLOGY METHOD 08/05/2024 7:42 AM [facility] Hemoglobin 7.9(L) 11.5 - 16.0 g/dL LAB HEMETOLOGY METHOD 08/05/2024 7:42 AM [facility] Hematocrit 25.5(L) 35.0 - 47.0 % LAB HEMETOLOGY METHOD 08/05/2024 7:42 AM [facility] MCV 87.6 79.0 - 98.0 FL LAB HEMETOLOGY METHOD 08/05/2024 7:42 AM [facility] MCH 27.1 27.0 - 32.0 pcg LAB HEMETOLOGY METHOD 08/05/2024 7:42 AM [facility] MCHC 31.0(L) 32.0 - 37.0 g/dL LAB HEMETOLOGY METHOD 08/05/2024 7:42 AM [facility] RDW 21.9(H) 11.0 - 15.0 % LAB HEMETOLOGY METHOD 08/05/2024 7:42 AM [facility] Platelets 180 130 - 400 K/mcL LAB HEMETOLOGY METHOD 08/05/2024 7:42 AM [facility] MPV 10.8 7.0 - 11.0 FL LAB HEMETOLOGY METHOD 08/05/2024 7:42 AM EST [facility] NRBC 0.0 <1.0 % LAB HEMETOLOGY METHOD 08/05/2024 7:42 AM EST [facility] NRBC Absolute 0.00 <0.10 K/mcL LAB HEMETOLOGY METHOD 08/05/2024 7:42 AM EST [facility] Blood Venous blood specimen / Unknown Venipuncture / Unknown 08/05/2024 7:03 AM EST 08/05/2024 7:34 AM EST Lencho Stuart MD LAB BLOOD ORDERABLES Final R esult Performing Organization Address [facility]/ZIP Co de Phone Number [facility] [address] [place] [address], * (ABNORMAL) Creatinine, Serum - Every 7 Days (08/04/2024 6:31 AM EST) Creatinine 2.49(H) 0.50 - 1.10 mg/dL LAB CHEMISTRY METHOD 08/04/2024 7:31 AM EST [facility] eGFR 19(L) >=60 mL/min/1. 73m2 LAB CHEMISTRY METHOD 08/04/2024 7:31 AM EST [facility] Comment:Calculation based on the??Chronic Kidney Disease Epidemiology Collaboration (CKD-EPI) equation refit??without adjustment for race. Blood Venous blood specimen / Unknown Venipuncture / Unknown 08/04/2024 6:31 AM EST 08/04/2024 6:54 AM EST Jonny Mathur MD LAB BLOOD ORDERABLES Final Re sult Performing Organization Address [facility]/ZIP Co de Phone Number [facility] [address] [place] [address], * Hepatitis B surface antigen with reflex to confirmation (08/03/2024 8:49 AM EST) Only the most recent of3 resultswithin the time period is included. Pathologist [facility] Hepatitis B Surface Ag Negative Negative LAB CHEMISTRY METHOD 08/03/2024 10:11 AM EST [facility] Blood Venous blood specimen / Unknown Venipuncture / Unknown 08/03/2024 8:49 AM EST 08/03/2024 9:22 AM EST [facility] - 08/03/2024 10:11 AM EST Over the counter supplements containing high doses of biotin may interfere with this assay. ??If interference is suspected, patients shoud be retested after refraining from biotin supplements for 72 hours. us Steve Cruz MD LAB BLOOD ORDERABLES Fi nal Result Performing Organization Address [facility] Co de Phone Number [facility] [address] [place] [address], * Hepatitis B surface antibody quantitative (08/03/2024 8:49 AM EST) Only the most recent of2 resultswithin the time period is included. [facility] Hepatitis B Surface Ab Negative Negative LAB CHEMISTRY METHOD 08/03/2024 9:59 AM EST [facility] Hepatitis B Surface Ab Quantitative <3.1 mIU/mL LAB CHEMISTRY METHOD 08/03/2024 9:59 AM EST [facility] Blood Venous blood specimen / Unknown Venipuncture / Unknown 08/03/2024 8:49 AM EST 08/03/2024 9:22 AM EST [facility] - 08/03/2024 9:59 AM EST >=10 mIU/mL is considered to be consistent with immunity. us Steve Cruz MD LAB BLOOD ORDERABLES Fi nal Result Performing Organization Address [facility]/ZIP Co de Phone Number [facility] [address] [place] [address], [place] [phone] * (ABNORMAL) CBC auto differential (08/03/2024 6:01 AM EST) Only the most recent of24 resultswithin the time period is included. WBC 7.5 4.8 - 10.8 K/mcL LAB HEMETOLOGY METHOD 08/03/2024 7:49 AM [facility] RBC 2.90(L) 3.80 - 4.80 M/mcL LAB HEMETOLOGY METHOD 08/03/2024 7:49 AM [facility] Hemoglobin 7.8(L) 11.5 - 16.0 g/dL LAB HEMETOLOGY METHOD 08/03/2024 7:49 AM [facility] Hematocrit 24.7(L) 35.0 - 47.0 % LAB HEMETOLOGY METHOD 08/03/2024 7:49 AM [facility] MCV 85.8 79.0 - 98.0 FL LAB HEMETOLOGY METHOD 08/03/2024 7:49 AM [facility] MCH 27.1 27.0 - 32.0 pcg LAB HEMETOLOGY METHOD 08/03/2024 7:49 AM [facility] MCHC 31.6(L) 32.0 - 37.0 g/dL LAB HEMETOLOGY METHOD 08/03/2024 7:49 AM [facility] RDW 21.6(H) 11.0 - 15.0 % LAB HEMETOLOGY METHOD 08/03/2024 7:49 AM [facility] Platelets 188 130 - 400 K/mcL LAB HEMETOLOGY METHOD 08/03/2024 7:49 AM [facility] MPV 11.2(H) 7.0 - 11.0 FL LAB HEMETOLOGY METHOD 08/03/2024 7:49 AM [facility] NRBC 0.0 <1.0 % LAB HEMETOLOGY METHOD 08/03/2024 7:49 AM [facility] NRBC Absolute 0.00 <0.10 K/mcL LAB HEMETOLOGY METHOD 08/03/2024 7:49 AM [facility] Neutrophils Relative 77.2 % LAB HEMETOLOGY METHOD 08/03/2024 7:49 AM [facility] Lymphocytes Relative 12.8 % LAB HEMETOLOGY METHOD 08/03/2024 7:49 AM [facility] Monocytes Relative 8.0 % LAB HEMETOLOGY METHOD 08/03/2024 7:49 AM [facility] Eosinophils Relative 0.4 % LAB HEMETOLOGY METHOD 08/03/2024 7:49 AM [facility] Basophils Relative 0.1 % LAB HEMETOLOGY METHOD 08/03/2024 7:49 AM [facility] Immature Granulocytes Relative 1.5 % LAB HEMETOLOGY METHOD 08/03/2024 7:49 AM [facility] Neutrophils Absolute 5.78 1.50 - 7.00 K/mcL LAB HEMETOLOGY METHOD 08/03/2024 7:49 AM [facility] Lymphocytes Absolute 0.96(L) 1.00 - 5.00 K/mcL LAB HEMETOLOGY METHOD 08/03/2024 7:49 AM [facility] Monocytes Absolute 0.60 0.20 - 1.00 K/mcL LAB HEMETOLOGY METHOD 08/03/2024 7:49 AM [facility] Eosinophils Absolute 0.03 0.00 - 0.50 K/mcL LAB HEMETOLOGY METHOD 08/03/2024 7:49 AM [facility] Basophils Absolute 0.01 0.00 - 0.20 K/mcL LAB HEMETOLOGY METHOD 08/03/2024 7:49 AM [facility] Immature Granulocytes Absolute 0.11(H) 0.00 - 0.03 K/mcL LAB HEMETOLOGY METHOD 08/03/2024 7:49 AM EST [facility] Blood Venous blood specimen / Unknown Venipuncture / Unknown 08/03/2024 6:01 AM EST 08/03/2024 7:27 AM EST us Steve Cruz MD LAB BLOOD ORDERABLES Fi nal Result Performing Organization Address City/[facility]/ZIP Co de Phone Number [facility] [address] [place] [address], * Phosphorus (08/03/2024 6:01 AM EST) Only the most recent of4 resultswithin the time period is included. Phosphorus 4.3 2.5 - 4.5 mg/dL LAB CHEMISTRY METHOD 08/03/2024 8:11 AM EST [facility] Blood Venous blood specimen / Unknown Venipuncture / Unknown 08/03/2024 6:01 AM EST 08/03/2024 7:27 AM EST us Steve Cruz MD LAB BLOOD ORDERABLES Fi nal Result Performing Organization Address [facility] de Phone Number [facility] [address] [place] [address], * Magnesium (08/03/2024 6:01 AM EST) Only the most recent of9 resultswithin the time period is included. Magnesium 2.1 1.9 - 2.6 mg/dL LAB CHEMISTRY METHOD 08/03/2024 8:11 AM EST [facility] Blood Venous blood specimen / Unknown Venipuncture / Unknown 08/03/2024 6:01 AM EST 08/03/2024 7:27 AM EST us Steve Cruz MD LAB BLOOD ORDERABLES Fi nal Result Performing Organization Address City/[facility]/ZIP Co de Phone Number [facility] [address] [place] [address], * Type and screen (08/02/2024 3:04 PM EST) Only the most recent of5 resultswithin the time period is included. ABO Group O 08/02/2024 4:52 PM EST [facility] Rh Type Positive 08/02/2024 4:52 PM EST [facility] Antibody Screen Negative 08/02/2024 4:52 PM [facility] Blood Venous blood specimen / Unknown Venipuncture / Unknown 08/02/2024 3:04 PM EST 08/02/2024 4:07 PM EST Steve Cruz MD LAB BLOOD BANK TEST ORD ERABLES Final Result Performing Organization Address [facility] [facility]/ZIP Co de Phone Number [facility] [address] [place] [address], * Prepare RBC: 1 Units (08/02/2024 2:09 PM EST) Only the most recent of4 resultswithin the time period is included. Product Code [id number] 08/02/2024 6:27 PM [facility] Unit Number [id number] 08/02/19 6:27 PM [facility] Crossmatch Compatible 08/02/2024 5:03 PM [facility] Dispense Status Transfused 08/02/2024 6:27 PM [facility] Unit ABO Rh OPOS 08/02/2024 6:27 PM [facility] Unit Expiration Date Time [id number] 08/02/2024 6:27 PM EST [facility] Unit Blood Type 5100 08/02/2024 6:27 PM EST [facility] Blood Venous blood specimen / Unknown 08/02/2024 2:09 PM EST 08/02/2024 4:07 PM EST Steve Cruz MD BLOOD BANK PRODUCT ORDE RABLES Final Result Performing Organization Address City/[facility]/ZIP Co de Phone Number [facility] [address] [place] [address], [place] [phone] * (ABNORMAL) Hemoglobin and hematocrit (07/31/2024 2:30 PM EST) Only the most recent of4 resultswithin the time period is included. Hemoglobin 7.3(L) 11.5 - 16.0 g/dL LAB HEMETOLOGY METHOD 07/31/2024 3:12 PM EST [facility] Hematocrit 23.7(L) 35.0 - 47.0 % LAB HEMETOLOGY METHOD 07/31/2024 3:12 PM EST [facility] Blood Venous blood specimen / Unknown Venipuncture / Unknown 07/31/2024 2:30 PM EST 07/31/2024 3:05 PM EST Jonny Mathur MD LAB BLOOD ORDERABLES Final Re sult [facility] [address] [place] [address], [place] [phone] * (ABNORMAL) Hepatic Function Panel - STAT (07/30/2024 11:52 AM EST) Only the most recent of3 resultswithin the time period is included. Total Protein 5.2(L) 6.0 - 8.0 g/dL LAB CHEMISTRY METHOD 07/30/2024 12:56 PM EST [facility] Albumin 2.4(L) 3.2 - 5.0 g/dL LAB CHEMISTRY METHOD 07/30/2024 12:56 PM [facility] Total Bilirubin 0.4 0.0 - 1.4 mg/dL LAB CHEMISTRY METHOD 07/30/2024 12:56 PM [facility] Bilirubin, Direct 0.2 0.0 - 0.3 mg/dL LAB CHEMISTRY METHOD 07/30/2024 12:56 PM [facility] Bilirubin, Indirect 0.2 0.0 - 1.1 mg/dL LAB CHEMISTRY METHOD 07/30/2024 12:56 PM [facility] ALT (SGPT) 17 10 - 60 unit/L LAB CHEMISTRY METHOD 07/30/2024 12:56 PM [facility] AST (SGOT) 12 10 - 42 unit/L LAB CHEMISTRY METHOD 07/30/2024 12:56 PM [facility] Alkaline Phosphatase 80 42 - 121 unit/L LAB CHEMISTRY METHOD 07/30/2024 12:56 PM [facility] Blood Venous blood specimen / Unknown Venipuncture / Unknown 07/30/2024 11:52 AM EST 07/30/2024 12:28 PM EST us Jonny Mathur MD LAB BLOOD ORDERABLES Final Re sult Performing Organization Address City/State/[facility] Co de Phone Number [facility] [address] [place] [address], * (ABNORMAL) Heparin and low molecular weight anti Xa level (07/30/2024 6:10 AM EST) Only the most recent of32 resultswithin the time period is included. Heparin Anti-Xa 1.16(H) 0.30 - 0.70 I Unit/mL LAB COAGULATION METHOD 07/30/2024 6:53 AM [facility] Blood Venous blood specimen / Unknown Venipuncture / Unknown 07/30/2024 6:10 AM EST 07/30/2024 6:26 AM EST Narrative [facility] - 07/30/2024 6:53 AM EST Therapeutic range listed is for Unfractionated Heparin. LMW Heparin therapeutic range: 0.50-1.20 IU/mL Jonny Mathur MD LAB BLOOD ORDERABLES Final Re sult Performing Organization Address [facility] de Phone Number [facility] [address] [place] [address], * Hepatitis B core antibody IgM (07/28/2024 12:19 PM EST) Hep B Core IgM Negative Negative LAB CHEMISTRY METHOD 07/28/2024 3:22 PM EST [facility] Blood Venous blood specimen / Unknown Venipuncture / Unknown 07/28/2024 12:19 PM EST 07/28/2024 12:35 PM EST [facility] - 07/28/2024 3:22 PM EST Over the counter supplements containing high doses of biotin may interfere with this assay. ??If interference is suspected, patients shoud be retested after refraining from biotin supplements for 72 hours. Miguel Quiles MD LAB BLOOD ORDERABLES Final Res ult Performing Organization Address [facility] Co de Phone Number [facility] [address] [place] [address], * Hepatitis B surface antibody (07/28/2024 12:19 PM EST) Hepatitis B Surface Ab Negative Negative LAB CHEMISTRY METHOD 07/28/2024 1:40 PM EST [facility] Hepatitis B Surface Ab Quantitative <3.1 mIU/mL LAB CHEMISTRY METHOD 07/28/2024 1:40 PM EST [facility] Blood Venous blood specimen / Unknown Venipuncture / Unknown 07/28/2024 12:19 PM EST 07/28/2024 12:35 PM EST Narrative [facility] FERNA[facility]MACAR[facility] [place] ([facility] - 07/28/2024 1:40 PM EST >=10 mIU/mL is considered to be consistent with immunity. Miguel Quiles MD LAB BLOOD ORDERABLES Final Res ult [facility] ([facility] [address] [place] [address], * Transfuse RBC (07/23/2024 6:19 PM EST) Only the most recent of3 resultswithin the time period is included. us Lencho Stuart MD BLOOD TRANSFUSION ORDERABLES Final Result * Insert Midline (07/23/2024 4:52 PM EST) Narrative Maggy Spencer RN - 07/23/2024 4:52 PM EST Maggy Spencer RN ? 07/23/2024 ??5:02 PM Midline Insertion Procedure Note Procedure: Insertion of 18g/10cm Bard Powerglide midline Lot: [id number] Exp: 2025-05-28 Indications: ??Difficult draw with frequent [...] Signed Date: 07/22/2024 17:00 ET Workstation ID: [id number] Transcribed By: Self Edit Transcribed Date: 07/22/2024 [...] of fentanyl administered during the procedure. Scanner: [facility] [address] Dose reduction technique: AEC [...] of fentanyl administered during the procedure. Scanner: [employer] [address] Dose reduction technique: AEC [...] Signed Date: 07/22/2024 17:00 ET Workstation ID: [id number] Transcribed By: Self Edit Transcribed Date: 07/22/2024 [...] resultswithin the time period is included. Addendum [facility] Kidney (addendum) This case was sent to [facility], Department of Pathology, [place], [place] (CLIA: [id number]). Their diagnosis is summarized as follows: Pathologic [...] report for full kidney biopsy diagnosis from [facility], [place], [place]) 08/12/2024 10:52 AM EST [facility] Addendum electronically signed by Mitchell Prince MD on 08/12/2024 at 10:52 AM Final Diagnosis Kidney, left-biopsies for routine, immunofluorescence and electron microscopy: -Submitted in toto to [facility] -See addendum report 08/12/2024 10:52 AM [facility] Gross Description A. Kidney, Left, : Labeled kidney L . Received fresh in saline are 3 perez-pink soft tissue cores, ranging from 0.7 x 0.1 cm to 1.7 x 0.1 cm, which are transfered to formalin for light microscopy, Mick fixative for Immunofluorescence, and Glutaraldehyde for electron microscopy. The specimen is entirely submitted to [facility] for analysis. ELOISE 08/12/2024 10:52 AM [facility] Disclaimer Unless otherwise specified, all tissue is 10% NB formalin fixed and paraffin embedded. 08/12/2024 10:52 AM [facility] Tissue Left kidney structure / Unknown 07/22/2024 3:13 PM EST 07/22/2024 3:39 PM EST us Fela Palomo MD LAB PATHOLOGY ORDERABLES Edited Result - Final [facility] [address] [place] [address], * (ABNORMAL) Prothrombin time with INR (07/22/2024 11:00 AM EST) Only the most recent of4 resultswithin the time period is included. Protime 16.3(H) 10.6 - 13.9 sec LAB COAGULATION METHOD 07/22/2024 1:11 PM [facility] INR 1.3 LAB COAGULATION METHOD 07/22/2024 1:11 PM [facility] Blood Venous blood specimen / Unknown Venipuncture / Unknown 07/22/2024 11:00 AM EST 07/22/2024 11:22 AM EST us Lencho Stuart MD LAB BLOOD ORDERABLES Final R esult [facility] [address] [place] [address], [place] [phone] * SST tube (07/22/2024 10:53 AM EST) Only the most recent of2 resultswithin the time period is included. Extra Tube Hold for add-ons. 07/22/2024 1:01 PM EST [facility] Comment:Auto resulted. Blood Venous blood specimen / Unknown 07/22/2024 10:53 AM EST 07/22/2024 11:25 AM EST us Lencho Stuart MD LAB BLOOD ORDERABLES Final R esult Performing Organization Address [facility] Co de Phone Number [facility] [address] [place] [address], [place] [phone] * Lavender tube (07/22/2024 10:53 AM EST) Extra Tube Hold for add-ons. 07/22/2024 1:01 PM EST [facility] Comment:Auto resulted. Blood Venous blood specimen / Unknown 07/22/2024 10:53 AM EST 07/22/2024 11:25 AM EST us Lencho Stuart MD LAB BLOOD ORDERABLES Final R esult [facility] [address] [place] [address], [place] [phone] * Activated Partial Thromboplastin Time - STAT (07/20/2024 2:30 PM EST) Only the most recent of3 resultswithin the time period is included. aPTT 30.0 24.1 - 39.3 sec LAB COAGULATION METHOD 07/20/2024 3:06 PM EST [facility] Blood Venous blood specimen / Unknown Venipuncture / Unknown 07/20/2024 2:30 PM EST 07/20/2024 2:52 PM EST Lencho Stuart MD LAB BLOOD ORDERABLES Final R esult [facility] [address] [place] [address], * (ABNORMAL) Microalbumin creatinine urine ratio (07/19/2024 12:01 PM EST) Only the most recent of2 resultswithin the time period is included. Creatinine, Urine 41.0 mg/dL LAB CHEMISTRY METHOD 07/19/2024 1:46 PM [facility] Microalb, Ur 1,480.0(H ) 0.0 - 29.0 mg/L LAB CHEMISTRY METHOD 07/19/2024 1:46 PM [facility] Microalb/Crea t Ratio 3,610(H) <30 mg/g creat LAB CHEMISTRY METHOD 07/19/2024 1:46 PM [facility] Urine Urine specimen obtained by clean catch procedure / Unknown Non-blood Collection / Unknown 07/19/2024 12:01 PM EST 07/19/2024 12:30 PM EST Miguel Quiles MD LAB URINE ORDERABLES Final Res ult [facility] [address] [place] [address], [place] [phone] * Creatinine, urine, random (07/19/2024 12:01 PM EST) Only the most recent of2 resultswithin the time period is included. Creatinine, Urine 41.0 mg/dL LAB CHEMISTRY METHOD 07/19/2024 1:17 PM EST [facility] Urine Urine specimen obtained by clean catch procedure / Unknown Non-blood Collection / Unknown 07/19/2024 12:01 PM EST 07/19/2024 12:30 PM EST Miguel Quiles MD LAB URINE ORDERABLES Final Res ult [facility] [address] [place] [address], [place] [phone] * (ABNORMAL) Parathyroid hormone related protein (07/19/2024 7:55 AM EST) Pathologist [facility] PTH-related Protein (PTHrP) 24(H) 11 - [...] analytical performance characteristics have been determined by [facility]. It has not been cleared or approved by FDA. This assay has been validated pursuant to the CLIA regulations and is used for clinical purposes. Test Performed at: [facility] [address] ??[id number] ? I Bethany GUERRERO, PhD, NINA Blood Venous blood specimen / Unknown Venipuncture / Unknown 07/19/2024 7:55 AM EST 07/19/2024 7:55 AM EST Jesus Manuel HEDRICK [facility] BLOOD ORDERABLES Final Resu lt [facility] [address] [place] [address] * (ABNORMAL) Anti-neutrophilic cytoplasmic antibody (07/19/2024 6:52 AM EST) Only the most recent of2 resultswithin the time period is included. Myeloperoxidase Ab Negative Negative LAB CHEMISTRY METHOD 07/20/2024 12:10 PM EST [facility] Myeloperoxidase Ab, Quant 1 <=20 units LAB CHEMISTRY METHOD 07/20/2024 12:10 PM EST [facility] Proteinase-3 Ab Positive(A ) Negative LAB CHEMISTRY METHOD 07/20/2024 12:10 PM [facility] Proteinase-3 Ab Quant 165(H) <=20 units LAB CHEMISTRY METHOD 07/20/2024 12:10 PM EST [facility] Blood Venous blood specimen / Unknown Venipuncture / Unknown 07/19/2024 6:52 AM EST 07/19/2024 7:21 AM EST Miguel Quiles MD LAB BLOOD ORDERABLES Final Res ult Performing Organization Address City/[facility]/ZIP Co de Phone Number [facility] [address] [place] [address], [place] [phone] * Robertson urine culture tube (07/18/2024 6:10 AM EST) Only the most recent of2 resultswithin the time period is included. Pathologist [facility] Extra Tube Hold for add-ons. 07/18/2024 8:01 AM EST [facility] Comment:Auto resulted. Urine Urine specimen obtained by clean catch procedure / Unknown 07/18/2024 6:10 AM EST 07/18/2024 6:37 AM EST Lencho Stuart MD LAB URINE ORDERABLES Final R esult Performing Organization Address City/[facility]/ZIP Co de Phone Number [facility] [address] [place] [address], [place] [phone] * (ABNORMAL) Urinalysis microscopic only (07/18/2024 6:09 AM EST) RBC, Urine 10(H) 0 - 4 /HPF 07/18/2024 7:53 AM EST [facility] WBC, Urine >100(H) 0 - 4 /HPF 07/18/2024 7:53 AM EST [facility] Squamous Epithelial, Urine 10 0 - 60 /LPF 07/18/2024 7:53 AM EST [facility] Non-Squamous Epithelial, Urine 2-5 Transitional epithelial cells. /LPF 07/18/2024 7:53 AM EST [facility] Bacteria, Urine Many(A) Negative /HPF 07/18/2024 7:53 AM [facility] Other Casts, Urine Rare Coarse Granular casts. /LPF 07/18/2024 7:53 AM [facility] Urine Indwelling urinary catheter / Unknown Non-blood Collection / Unknown 07/18/2024 6:09 AM EST 07/18/2024 6:36 AM EST us Gian Crum MD LAB URINE ORDERABLES F inal Result Performing Organization Address City/[facility] Co de Phone Number [facility] [address] [place] [address], * (ABNORMAL) Calcium, ionized (07/18/2024 6:07 AM EST) Only the most recent of2 resultswithin the time period is included. Calcium Ionized 4.28(L) 4.50 - 5.30 mg/dL 07/18/2024 6:46 AM EST [facility] Blood Venous blood specimen / Unknown 07/18/2024 6:07 AM EST 07/18/2024 6:33 AM EST us Gian Crum MD LAB BLOOD ORDERABLES F inal Result [facility] [address] [place] [address], * Vascular US duplex lower extremity venous [...] Signed Date: 07/16/2024 12:33 ET Workstation ID: [id number] Transcribed By: Self Edit Transcribed Date: 07/16/2024 [...] Signed Date: 07/16/2024 12:33 ET Workstation ID: [id number] Transcribed By: Self Edit Transcribed Date: 07/16/2024 12:28 ET Gian Crum MD CV VASCULAR PROCEDURES Final Result * IR Insert Tunneled CVC wo Port or Pump More 5yrs Left (07/15/2024 3:36 PM EST) Anatomical Region Laterality Modality Left Interventional R adiology 07/15/2024 3:45 PM EST Impressions 07/15/2024 3:47 PM EST Successful placement of a 14 Serbian 23 cm dual-lumen cuffed tunneled dialysis catheter with the tip at the cavoatrial junction. This line may be used immediately. -------- FINAL REPORT -------- Dictated By: Fela Palomo Dictated Date: 07/15/2024 15:45 ET Assigned Physician: Fela Palomo Reviewed and Electronically Signed By: Fela Palomo Signed Date: 07/15/2024 15:47 ET Workstation ID: [id number] Transcribed By: Self Edit Transcribed Date: 07/15/2024 [...] The needle was exchanged for the 4 Serbian transition sheath. A 0.035 wire was then advanced through ??the sheath and into the inferior vena cava under fluoroscopy. The sheath was then exchanged for a 7 Serbian vascular dilator. Attention was then turned to the right upper chest and the appropriate area was anesthetized with 2% lidocaine. A small dermatotomy was performed and then a tunnel was created from the dermatotomy to the initial venous access site. The catheter was advanced through the tunnel. ??The initial venous access site was then serially dilated up to a 15 Serbian peel-away sheath. The catheter was then advanced [...] The needle was exchanged for the 4 Serbian transition sheath. A 0.035wire was then advanced through the sheath and into the inferior vena cavaunder fluoroscopy. The sheath was then exchanged for a 7 Serbian vasculardilator. Attention was then turned to the right upper chest and the appropriatearea was anesthetized with 2% lidocaine. A small dermatotomy was performedand then a tunnel was created from the dermatotomy to the initial venousaccess site. The catheter was advanced through the tunnel. The initialvenous access site was then serially dilated up to a 15 Serbian peel-awaysheath. The catheter was then advanced through [...] mGy IMPRESSION: Successful placement of a 14 Serbian 23 cm dual-lumen cuffed tunneleddialysis catheter with the tip at the cavoatrial junction. This line maybe used immediately. -------- FINAL REPORT -------- Dictated By: Fela Palomo Dictated Date: 07/15/2024 15:45 ET Assigned Physician: Fela Palomo Reviewed and Electronically Signed By: Fela Palomo Signed Date: 07/15/2024 15:47 ET Workstation ID: [id number] Transcribed By: Self Edit Transcribed Date: 07/15/2024 15:45 ET us Chencho Wayne MD IM IR PROCEDURES Final Result * (ABNORMAL) Renal function panel (07/15/2024 8:56 AM EST) Sodium 132(L) 133 - 145 mmol/L LAB CHEMISTRY METHOD 07/15/2024 10:26 AM EST [facility] Potassium 3.8 3.5 - 5.5 mmol/L LAB CHEMISTRY METHOD 07/15/2024 10:26 AM [facility] Chloride 104 96 - 110 mmol/L LAB CHEMISTRY METHOD 07/15/2024 10:26 AM [facility] CO2 16(L) 21 - 32 mmol/L LAB CHEMISTRY METHOD 07/15/2024 10:26 AM [facility] Anion Gap 12(H) 3 - 11 LAB CHEMISTRY METHOD 07/15/2024 10:26 AM [facility] Glucose 80 70 - 100 mg/dL LAB CHEMISTRY METHOD 07/15/2024 10:26 AM [facility] BUN 97(H) 5 - 25 mg/dL LAB CHEMISTRY METHOD 07/15/2024 10:26 AM [facility] Creatinine 6.70(H) 0.50 - 1.10 mg/dL LAB CHEMISTRY METHOD 07/15/2024 10:26 AM [facility] eGFR 6(L) >=60 mL/min/1. 73m2 LAB CHEMISTRY METHOD 07/15/2024 10:26 AM [facility] Comment:Calculation based on the??Chronic Kidney Disease Epidemiology Collaboration (CKD-EPI) equation refit??without adjustment for race. BUN/Creatinine Ratio 14.5 LAB CHEMISTRY METHOD 07/15/2024 10:26 AM [facility] Albumin 3.3 3.2 - 5.0 g/dL LAB CHEMISTRY METHOD 07/15/2024 10:26 AM [facility] Comment:Results verified by repeat testing Calcium 8.4(L) 8.5 - 10.5 mg/dL LAB CHEMISTRY METHOD 07/15/2024 10:26 AM [facility] Phosphorus 4.2 2.5 - 4.5 mg/dL LAB CHEMISTRY METHOD 07/15/2024 10:26 AM [facility] Blood Venous blood specimen / Unknown Venipuncture / Unknown 07/15/2024 8:56 AM EST 07/15/2024 9:43 AM EST Chencho Wayne MD LAB BLOOD ORDERABLES Final Resu lt [facility] [address] [place] [address], [place] [phone] * (ABNORMAL) RBC morphology review (07/15/2024 6:56 AM EST) Rbc Morphology Present( A) Consistent with indices, Normal for LAB HEMETOLOGY METHOD 07/15/2024 8:54 AM EST [facility] Platelet Morphology - WAM See Note(A) Normal LAB HEMETOLOGY METHOD 07/15/2024 8:54 AM EST [facility] Comment:PLT: Normal Polychromasia Present Present( A) (none) LAB HEMETOLOGY METHOD 07/15/2024 8:54 AM EST [facility] Pappenheimer Bodies Present Present( A) (none) LAB HEMETOLOGY METHOD 07/15/2024 8:54 AM EST [facility] Schistocytes Present < 5%(A) (none) LAB HEMETOLOGY METHOD 07/15/2024 8:54 AM EST [facility] Blood Venous blood specimen / Unknown Venipuncture / Unknown 07/15/2024 6:56 AM EST 07/15/2024 7:52 AM EST Gian Crum MD LAB BLOOD ORDERABLES F inal Result [facility] [address] [place] [address], [place] [phone] * Extractable Nuclear Antibodies Profile (07/14/2024 6:00 AM EST) SM Ab Negative Negative LAB CHEMISTRY METHOD 07/17/2024 12:29 PM EST [facility] SM Antibody Quant 2 <20 units LAB CHEMISTRY METHOD 07/17/2024 12:29 PM EST [facility] [employer] Ab Negative Negative LAB CHEMISTRY METHOD 07/17/2024 12:29 PM EST [facility] [employer] Antibody Quant 1 <20 units LAB CHEMISTRY METHOD 07/17/2024 12:29 PM EST [facility] Blood Venous blood specimen / Unknown 07/14/2024 6:00 AM EST 07/14/2024 6:35 AM EST us Gian Crum MD LAB BLOOD ORDERABLES F inal Result [facility] [address] [place] [address], [place] [phone] * (ABNORMAL) C3 complement (07/14/2024 6:00 AM EST) C3 Complement 78(L) 88 - 201 mg/dL LAB CHEMISTRY METHOD 07/14/2024 11:20 AM EST [facility] Blood Venous blood specimen / Unknown 07/14/2024 6:00 AM EST 07/14/2024 6:35 AM EST us Gian Crum MD LAB BLOOD ORDERABLES F inal Result [facility] [address] [place] [address], [place] [phone] * C4 complement (07/14/2024 6:00 AM EST) C4 Complement 18 16 - 47 mg/dL LAB CHEMISTRY METHOD 07/14/2024 11:20 AM EST [facility] Blood Venous blood specimen / Unknown 07/14/2024 6:00 AM EST 07/14/2024 6:35 AM EST us Gian Crum MD LAB BLOOD ORDERABLES F inal Result Performing Organization Address [facility] Co de Phone Number [facility] [address] [place] [address], * (ABNORMAL) Sedimentation rate (07/13/2024 6:38 AM EST) Sed Rate 84(H) 0 - 30 mm/hr LAB HEMETOLOGY METHOD 07/13/2024 7:32 AM EST [facility] Blood Venous blood specimen / Unknown Venipuncture / Unknown 07/13/2024 6:38 AM EST 07/13/2024 6:51 AM EST Gian Crum MD LAB BLOOD ORDERABLES F inal Result Performing Organization Address [facility] de Phone Number [facility] [address] [place] [address], * Uric acid (07/13/2024 6:38 AM EST) Only the most recent of2 resultswithin the time period is included. Uric Acid 7.5 3.1 - 7.8 mg/dL LAB CHEMISTRY METHOD 07/13/2024 7:44 AM EST [facility] Blood Venous blood specimen / Unknown Venipuncture / Unknown 07/13/2024 6:38 AM EST 07/13/2024 6:50 AM EST Chencho Wayne MD LAB BLOOD ORDERABLES Final Resu lt Performing Organization Address [facility] Co de Phone Number [facility] [address] [place] [address], * (ABNORMAL) Protein and creatinine with ratio, urine (07/12/2024 3:27 PM EST) Protein, Urine 192 mg/dL LAB CHEMISTRY METHOD 07/12/2024 6:44 PM EST [facility] Prot/Creat, Ur 3.00(H) <=0.20 mg/mg creat LAB CHEMISTRY METHOD 07/12/2024 6:44 PM EST [facility] Creatinine, Urine 64.0 mg/dL LAB CHEMISTRY METHOD 07/12/2024 6:44 PM EST [facility] Urine Urine specimen obtained by clean catch procedure / Unknown Non-blood Collection / Unknown 07/12/2024 3:27 PM EST 07/12/2024 4:10 PM EST Chencho Wayne MD LAB URINE ORDERABLES Final Resu lt Performing Organization Address [facility]/ZIP Co de Phone Number [facility] [address] [place] [address], [place] [phone] * Sodium, urine, random (07/12/2024 3:27 PM EST) Sodium, Ur 34 mmol/L LAB CHEMISTRY METHOD 07/12/2024 6:44 PM EST [facility] Urine Urine specimen obtained by clean catch procedure / Unknown Non-blood Collection / Unknown 07/12/2024 3:27 PM EST 07/12/2024 4:10 PM EST Aye HEDRICK LAB URINE ORDERABLES Final Re sult Performing Organization Address [facility]/ZIP Co de Phone Number [facility] [address] [place] [address], [place] [phone] * Osmolality, urine (07/12/2024 3:27 PM EST) Osmolality, Urine 397 300 - 1,300 mOsm/kg LAB CHEMISTRY METHOD 07/12/2024 5:57 PM EST [facility] Urine Urine specimen obtained by clean catch procedure / Unknown Non-blood Collection / Unknown 07/12/2024 3:27 PM EST 07/12/2024 4:10 PM EST us Aye HEDRICK LAB URINE ORDERABLES Final Re sult [facility] ([facility] [address] [place] [address], [place] [phone] * CT Chest wo Contrast (07/12/2024 12:48 [...] Small bilateral pleural effusions, new. Starr HEDRICK ([id number]) -------- FINAL REPORT -------- Dictated By: Edilia Durbin Dictated Date: 07/12/2024 13:07 ET Assigned Physician: Edilia Durbin Reviewed and Electronically Signed By: Edilia Durbin Signed Date: 07/12/2024 13:19 ET Workstation ID: [id number] Transcribed By: Self Edit Transcribed Date: 07/12/2024 13:07 ET Narrative 07/12/2024 1:19 PM EST History: Abnormal chest radiograph. The patient underwent nondiagnostic CT- guided biopsy of the right apical lung nodule on 05/23/24. Comparison: Thoracic CT 06/17/24, 03/21/24 Technique: Helical volumetric imaging of the thorax was performed without IV contrast. DLP: 613.10 mGy/cm [employer] VCT Iterative reconstruction technique Findings: Respiratory motion [...] was performed withoutIV contrast. DLP: 613.10 mGy/cm JLGOV VCT Iterative reconstruction technique Findings: Respiratory motion [...] Small bilateral pleural effusions, new. Telerad RYLEY ([id number]) -------- FINAL REPORT -------- Dictated By: Edilia Durbin Dictated Date: 07/12/2024 13:07 ET Assigned Physician: Edilia Durbin Reviewed and Electronically Signed By: Edilia Durbin Signed Date: 07/12/2024 13:19 ET Workstation ID: [id number] Transcribed By: Self Edit Transcribed Date: 07/12/2024 13:07 ET Gian Crum MD IMG CT PROCEDURES [place] Result * (ABNORMAL) Procalcitonin (07/12/2024 6:19 AM EST) Procalcitonin 3.11(H) <=0.16 ng/mL LAB CHEMISTRY METHOD 07/12/2024 12:23 PM EST [facility] Blood Venous blood specimen / Unknown Venipuncture / Unknown 07/12/2024 6:19 AM EST 07/12/2024 6:56 AM EST Narrative [facility] - 07/12/2024 12:23 PM [...] ORDERABLES F inal Result Performing Organization Address City/[facility]/ZIP Co de Phone Number [facility] [address] [place] [address], [place] [phone] * (ABNORMAL) C-reactive protein (07/12/2024 6:19 AM EST) [facility] C-Reactive Protein 16.60(H) <=0.50 mg/dL LAB CHEMISTRY METHOD 07/12/2024 10:35 AM EST [facility] Blood Venous blood specimen / Unknown Venipuncture / Unknown 07/12/2024 6:19 AM EST 07/12/2024 6:56 AM EST us Gian Crum MD LAB BLOOD ORDERABLES F inal Result Performing Organization Address [facility] Co de Phone Number [facility] [address] [place] [address], [place] [phone] * (ABNORMAL) Lipase (07/12/2024 6:19 AM EST) Only the most recent of2 resultswithin the time period is included. [facility] Lipase <10(L) 13 - 75 unit/L LAB CHEMISTRY METHOD 07/12/2024 3:26 PM EST [facility] Blood Venous blood specimen / Unknown Venipuncture / Unknown 07/12/2024 6:19 AM EST 07/12/2024 6:56 AM EST us Gian Crum MD LAB BLOOD ORDERABLES F inal Result Performing Organization Address [facility]/ZIP Co de Phone Number [facility] [address] [place] [address], [place] [phone] * Pathologist Review Immunofixation (07/11/2024 6:21 AM EST) Pathologist Interpretation Reviewed by Rosenda Galeana MD 07/13/2024 4:13 PM EST [facility] Blood Venous blood specimen / Unknown Venipuncture / Unknown 07/11/2024 6:21 AM EST 07/11/2024 6:43 AM EST us Chencho Wayne MD LAB BLOOD ORDERABLES Final Resu lt [facility] [address] [place] [address], [place] [phone] * Immunofixation electrophoresis serum (07/11/2024 6:21 AM EST) Pathologist [facility] Immunofixation Result, Serum Faint restriction of IgG [place], not observed on SPEP . Follow-up in 6 months if clinically indicated. LAB CHEMISTRY METHOD 07/13/2024 4:13 PM EST [facility] Blood Venous blood specimen / Unknown Venipuncture / Unknown 07/11/2024 6:21 AM EST 07/11/2024 6:43 AM EST us Chencho Wayne MD LAB BLOOD ORDERABLES Final Resu lt Performing Organization Address City/[facility]/ZIP Co de Phone Number [facility] [address] [place] [address], [place] [phone] * Immunoglobulins IgG, IgA, IgM (07/11/2024 6:21 AM EST) Pathologist [facility] Total IgG 1,090 549 - 1,584 mg/dL LAB CHEMISTRY METHOD 07/11/2024 7:29 AM EST [facility] IgA 172 61 - 348 mg/dL LAB CHEMISTRY METHOD 07/11/2024 7:29 AM EST [facility] IgM 38 23 - 259 mg/dL LAB CHEMISTRY METHOD 07/11/2024 7:29 AM EST [facility] Blood Venous blood specimen / Unknown Venipuncture / Unknown 07/11/2024 6:21 AM EST 07/11/2024 6:42 AM EST Chencho Wayne MD LAB BLOOD ORDERABLES Final Resu lt Performing Organization Address [facility]/ZIP Co de Phone Number [facility] [address] [place] [address], [place] [phone] * (ABNORMAL) Triiodothyronine free (07/10/2024 5:16 AM EST) T3, Free 154(L) 230 - 420 pcg/dL LAB CHEMISTRY METHOD 07/10/2024 2:10 PM EST [facility] Blood Venous blood specimen / Unknown Venipuncture / Unknown 07/10/2024 5:16 AM EST 07/10/2024 6:42 AM EST Maria Alejandra Melendez MD LAB BLOOD ORDERABLES Final Res ult Performing Organization Address [facility]/ZIP Co de Phone Number [facility] [address] [place] [address], [place] [phone] * Thyroxine free (07/10/2024 5:16 AM EST) Free T4 0.92 0.70 - 1.80 ng/dL LAB CHEMISTRY METHOD 07/10/2024 2:04 PM EST [facility] Blood Venous blood specimen / Unknown Venipuncture / Unknown 07/10/2024 5:16 AM EST 07/10/2024 6:42 AM EST Maria Alejandra Melendez MD LAB BLOOD ORDERABLES Final Res ult Performing Organization Address City/[facility]/ZIP Co de Phone Number [facility] [address] [place] [address], [place] [phone] * (ABNORMAL) Parathyroid hormone intact (07/10/2024 5:16 AM EST) Only the most recent of2 resultswithin the time period is included. PTH 10.5(L) 18.5 - 88.0 pcg/mL LAB CHEMISTRY METHOD 07/10/2024 1:47 PM EST [facility] Blood Venous blood specimen / Unknown Venipuncture / Unknown 07/10/2024 5:16 AM EST 07/10/2024 6:42 AM EST Maria Alejandra Melendez MD LAB BLOOD ORDERABLES Final Res ult Performing Organization Address [facility]/ZIP Co de Phone Number [facility] [address] [place] [address], [place] [phone] * Creatine kinase (07/09/2024 6:25 AM EST) Pathologist [facility] Total CK 172 22 - 269 unit/L LAB CHEMISTRY METHOD 07/09/2024 8:11 AM EST [facility] Blood Venous blood specimen / Unknown Venipuncture / Unknown 07/09/2024 6:25 AM EST 07/09/2024 7:11 AM EST Aye HEDRICK LAB BLOOD ORDERABLES Final Re sult Performing Organization Address [facility]/ZIP Co de Phone Number [facility] [address] [place] [address], [place] [phone] * Green LI heparin tube (07/08/2024 9:50 PM EST) Pathologist [facility] Extra Tube Hold for add-ons. 07/09/2024 12:01 AM EST [facility] Comment:Auto resulted. Blood Venous blood specimen / Unknown 07/08/2024 9:50 PM EST 07/08/2024 10:41 PM EST Wayne Donahue MD LAB BLOOD ORDERABLES Final Re sult [facility] [address] [place] [address], [place] [phone] * Culture blood (07/08/2024 9:49 PM EST) Only the most recent of2 resultswithin the time period is included. Culture, Blood No growth at 5 days 07/13/2024 10:01 PM EST [facility] Blood Venous blood specimen / Unknown Venipuncture / Unknown 07/08/2024 9:49 PM EST 07/08/2024 9:54 PM EST Aye HEDRICK LAB MICROBIOLOGY - GENERAL OR DERABLES Final Result Performing Organization Address [facility] Co de Phone Number [facility] [address] [place] [address], [place] [phone] * Lactate (07/08/2024 9:42 PM EST) Pathologist [facility] Lactate 1.3 mmol/L 07/08/2024 10:30 PM EST [facility] Blood Venous blood specimen / Unknown Venipuncture / Unknown 07/08/2024 9:42 PM EST 07/08/2024 9:54 PM EST Aye HEDRICK LAB BLOOD ORDERABLES Final Re sult Performing Organization Address [facility]/ZIP Co de Phone Number [facility] [address] [place] [address], [place] [phone] * (ABNORMAL) Electrolyte panel (07/08/2024 8:30 PM EST) Only the most recent of2 resultswithin the time period is included. Sodium 130(L) 133 - 145 mmol/L LAB CHEMISTRY METHOD 07/08/2024 11:37 PM EST [facility] Potassium 4.0 3.5 - 5.5 mmol/L LAB CHEMISTRY METHOD 07/08/2024 11:37 PM EST [facility] Chloride 98 96 - 110 mmol/L LAB CHEMISTRY METHOD 07/08/2024 11:37 PM [facility] CO2 22 21 - 32 mmol/L LAB CHEMISTRY METHOD 07/08/2024 11:37 PM [facility] Anion Gap 10 3 - 11 LAB CHEMISTRY METHOD 07/08/2024 11:37 PM EST [facility] Blood Venous blood specimen / Unknown Venipuncture / Unknown 07/08/2024 8:30 PM EST 07/08/2024 8:37 PM EST Aye HEDRICK LAB BLOOD ORDERABLES Final Re sult Performing Organization Address [facility]/ZIP Co de Phone Number [facility] [address] [place] [address], [place] [phone] * PATHOLOGIST REVIEW PROTEIN ELECTROPHORESIS (07/08/2024 5:52 PM EST) Pathologist [facility] Pathologist Interpretation Reviewed by Rosenda Galeana MD 07/14/2024 9:21 AM [facility] Blood Venous blood specimen / Unknown Venipuncture / Unknown 07/08/2024 5:52 PM EST 07/08/2024 6:00 PM EST Aye HEDRICK LAB BLOOD ORDERABLES Final Re sult [facility] [address] [place] [address], [place] [phone] * (ABNORMAL) Protein electrophoresis, serum (07/08/2024 5:52 PM EST) Total Protein 6.4 6.0 - 8.0 g/dL LAB CHEMISTRY METHOD 07/14/2024 9:21 AM [facility] Albumin, Serum 2.2(L) 2.9 - 4.1 g/dL LAB CHEMISTRY METHOD 07/14/2024 9:21 AM [facility] Alpha 1 Globulin (g/dL) 0.6(H) 0.1 - 0.5 g/dL LAB CHEMISTRY METHOD 07/14/2024 9:21 AM [facility] Alpha 2 Globulin (g/dL) 1.2 0.7 - 1.5 g/dL LAB CHEMISTRY METHOD 07/14/2024 9:21 AM [facility] Beta (g/dL) 1.0 0.7 - 1.5 g/dL LAB CHEMISTRY METHOD 07/14/2024 9:21 AM [facility] Gamma Globulin (g/dL) 1.5 0.7 - 1.9 g/dL LAB CHEMISTRY METHOD 07/14/2024 9:21 AM [facility] SPEP Interpretation Hypoalbuminem ia, suggestive of malnutrition, decreased hepatic synthesis or renal/GI loss Elevated alpha-1 fraction, suggestive of acute or or chronic inflammation. LAB CHEMISTRY METHOD 07/14/2024 9:21 AM [facility] Blood Venous blood specimen / Unknown Venipuncture / Unknown 07/08/2024 5:52 PM EST 07/08/2024 6:00 PM EST us Aye HEDRICK LAB BLOOD ORDERABLES Final Re sult [facility] [address] [place] [address], * Protein, total (07/08/2024 5:52 PM EST) Total Protein 6.4 6.0 - 8.0 g/dL LAB CHEMISTRY METHOD 07/08/2024 6:30 PM [facility] Blood Venous blood specimen / Unknown Venipuncture / Unknown 07/08/2024 5:52 PM EST 07/08/2024 6:00 PM EST Aye HEDRICK LAB BLOOD ORDERABLES Final Re sult Performing Organization Address [facility]/ZIP Co de Phone Number [facility] [address] [place] [address], [place] [phone] * (ABNORMAL) Serum albumin (07/08/2024 5:52 PM EST) Albumin 2.1(L) 3.2 - 5.0 g/dL LAB CHEMISTRY METHOD 07/08/2024 6:34 PM EST [facility] Blood Venous blood specimen / Unknown Venipuncture / Unknown 07/08/2024 5:52 PM EST 07/08/2024 6:00 PM EST Aye HEDRICK LAB BLOOD ORDERABLES Final Re sult Performing Organization Address [facility] Co de Phone Number [facility] [address] [place] [address], [place] [phone] * [place] Retroperitoneal Complete (07/08/2024 4:30 PM EST) Anatomical Region Laterality Modality Body Ultrasound 07/10/2024 2:07 PM EST Impressions 07/10/2024 2:08 PM EST Normal appearance of the kidneys. -------- FINAL REPORT -------- Dictated By: Primo Dee Dictated Date: 07/10/2024 14:07 ET Assigned Physician: Primo Dee Reviewed and Electronically Signed By: Primo Dee Signed Date: 07/10/2024 14:08 ET Workstation ID: [id number] Transcribed By: Self Edit Transcribed Date: 07/10/2024 [...] Signed Date: 07/10/2024 14:08 ET Workstation ID: [id number] Transcribed By: Self Edit Transcribed Date: 07/10/2024 14:07 ET Aye HEDRICK [facility] US PROCEDURES Final Resul t * Respiratory virus panel molecular study (07/08/2024 2:59 PM EST) Adenovirus Detection by PCR Not Detected Not Detected LAB MICROBIOLOGY METHOD 07/08/2024 4:18 PM [facility] Influenza A PCR Not Detected Not Detected LAB MICROBIOLOGY METHOD 07/08/2024 4:18 PM EST [facility] Influenza B PCR Not Detected Not Detected LAB MICROBIOLOGY METHOD 07/08/2024 4:18 PM [facility] Coronavirus 229E Not Detected Not Detected LAB MICROBIOLOGY METHOD 07/08/2024 4:18 PM [facility] Coronavirus HKU1 Not Detected Not Detected LAB MICROBIOLOGY METHOD 07/08/2024 4:18 PM [facility] Coronavirus OC43 Not Detected Not Detected LAB MICROBIOLOGY METHOD 07/08/2024 4:18 PM [facility] Coronavirus NL63 Not Detected Not Detected LAB MICROBIOLOGY METHOD 07/08/2024 4:18 PM [facility] Parainfluenza Virus 1 Not Detected Not Detected LAB MICROBIOLOGY METHOD 07/08/2024 4:18 PM [facility] Parainfluenza Virus 2 Not Detected Not Detected LAB MICROBIOLOGY METHOD 07/08/2024 4:18 PM [facility] Parainfluenza Virus 3 Not Detected Not Detected LAB MICROBIOLOGY METHOD 07/08/2024 4:18 PM [facility] Parainfluenza Virus 4 Not Detected Not Detected LAB MICROBIOLOGY METHOD 07/08/2024 4:18 PM [facility] RSV PCR Not Detected Not Detected LAB MICROBIOLOGY METHOD 07/08/2024 4:18 PM [facility] Human Metapneumovirus A and B Not Detected Not Detected LAB MICROBIOLOGY METHOD 07/08/2024 4:18 PM [facility] Rhinovirus/Entero virus Not Detected Not Detected LAB MICROBIOLOGY METHOD 07/08/2024 4:18 PM [facility] Bordetella pertussis Not Detected Not Detected LAB MICROBIOLOGY METHOD 07/08/2024 4:18 PM [facility] Bordetella parapertussis Not Detected Not Detected LAB MICROBIOLOGY METHOD 07/08/2024 4:18 PM [facility] Mycoplasma pneumo by PCR Not Detected Not Detected LAB MICROBIOLOGY METHOD 07/08/2024 4:18 PM [facility] Chlamydia pneumoniae Not Detected Not Detected LAB MICROBIOLOGY METHOD 07/08/2024 4:18 PM [facility] SARS COV-2 Not Detected Not Detected LAB MICROBIOLOGY METHOD 07/08/2024 4:18 PM [facility] Swab Both anterior nares / Unknown Non-blood Collection / Unknown 07/08/2024 2:59 PM EST 07/08/2024 3:15 PM EST Narrative [facility] ([facility]) [facility] - 07/08/2024 4:18 PM EST Testing was performed using the [employer] Respiratory Pathogen PCR Assay. All results must [...] MICROBIOLOGY - GENERAL OR DERABLES Final Result [facility] ([facility] [address] [place] [address], * XR Chest 2 Views (07/08/2024 2:01 [...] Signed Date: 07/08/2024 14:07 ET Workstation ID: [id number] Transcribed By: Self Edit Transcribed Date: 07/08/2024 [...] Signed Date: 07/08/2024 14:07 ET Workstation ID: [id number] Transcribed By: Self Edit Transcribed Date: 07/08/2024 14:06 ET Jj Wolfe MD IMG XR PROCEDURES Final R esult * (ABNORMAL) Troponin I high sensitivity (07/08/2024 1:18 PM EST) Only the most recent of2 resultswithin the time period is included. High Sensitivity Troponin I 81(H) <=54 ng/L LAB CHEMISTRY METHOD 07/08/2024 2:17 PM EST [facility] Blood Venous blood specimen / Unknown Venipuncture / Unknown 07/08/2024 1:18 PM EST 07/08/2024 1:34 PM EST Narrative [facility] - 07/08/2024 2:17 PM EST High levels of biotin in samples may falsely decrease hsTroponin values. ??Use caution when interpreting hsTroponin results in patients taking biotin who exhibit renal impairment (eGFR <60) or in patients taking more than 20 mg/day of biotin. Jj Wolfe MD LAB BLOOD ORDERABLES [place] Result [facility] [address] [place] [address], [place] [phone] * (ABNORMAL) Urinalysis with reflex microscopic and culture (07/08/2024 12:59 PM EST) Specific [place] Urine 1.020 1.003 - 1.030 LAB URINALYSIS - AUTOMATED METHOD 07/08/2024 1:21 PM [facility] pH, Urine 5.5 5.0 - 8.0 pH LAB URINALYSIS - AUTOMATED METHOD 07/08/2024 1:21 PM [facility] Leukocytes, Urine Negative Negative LAB URINALYSIS - AUTOMATED METHOD 07/08/2024 1:21 PM [facility] Nitrite, Urine Negative Negative LAB URINALYSIS - AUTOMATED METHOD 07/08/2024 1:21 PM [facility] Protein, Urine 100(A) <=Trace mg/dL LAB URINALYSIS - AUTOMATED METHOD 07/08/2024 1:21 PM [facility] Glucose, Urine 500(A) Negative mg/dL LAB URINALYSIS - AUTOMATED METHOD 07/08/2024 1:21 PM [facility] Ketones, Urine Negative Negative mg/dL LAB URINALYSIS - AUTOMATED METHOD 07/08/2024 1:21 PM [facility] Urobilinogen, Urine 0.2 0.2 - 1.0 mg/dL LAB URINALYSIS - AUTOMATED METHOD 07/08/2024 1:21 PM [facility] Bilirubin, Urine Negative Negative LAB URINALYSIS - AUTOMATED METHOD 07/08/2024 1:21 PM [facility] Blood, Urine Large(A) Negative LAB URINALYSIS - AUTOMATED METHOD 07/08/2024 1:21 PM [facility] RBC, Urine 21.6(H) 0 - 4 /HPF LAB URINALYSIS - AUTOMATED METHOD 07/08/2024 1:21 PM [facility] WBC, Urine 7.3(H) 0 - 4 /HPF LAB URINALYSIS - AUTOMATED METHOD 07/08/2024 1:21 PM [facility] Squamous Epithelial, Urine 30 0 - 60 /LPF LAB URINALYSIS - AUTOMATED METHOD 07/08/2024 1:21 PM [facility] Bacteria, Urine Negative Negative /HPF LAB URINALYSIS - AUTOMATED METHOD 07/08/2024 1:21 PM [facility] Hyaline Casts, Urine 1.7 0 - 3 /LPF LAB URINALYSIS - AUTOMATED METHOD 07/08/2024 1:21 PM [facility] Urine Urine specimen obtained by clean catch procedure / Unknown Non-blood Collection / Unknown 07/08/2024 12:59 PM EST 07/08/2024 1:11 PM EST Jj Wolfe MD LAB URINE ORDERABLES [place] l Result Performing Organization Address City/[facility]/ZIP Co de Phone Number [facility] [address] [place] [address], [place] [phone] * Culture urine (07/08/2024 12:59 PM EST) Culture, Urine No growth 07/09/2024 10:44 AM [facility] Urine Urine specimen obtained by clean catch procedure / Unknown Non-blood Collection / Unknown 07/08/2024 12:59 PM EST 07/08/2024 1:21 PM EST Jj Wolfe MD LAB MICROBIOLOGY - GENERA L ORDERABLES Final Result [facility] [address] [place] [address], [place] [phone] * CT Cervical Spine wo Contrast (07/08/2024 [...] Signed Date: 07/08/2024 12:27 ET Workstation ID: [id number] Transcribed By: Self Edit Transcribed Date: 07/08/2024 [...] Signed Date: 07/08/2024 12:27 ET Workstation ID: [id number] Transcribed By: Self Edit Transcribed Date: 07/08/2024 12:24 ET Raya HEDRICK [facility] CT PROCEDURES [place] Result * CT [...] Signed Date: 07/08/2024 12:23 ET Workstation ID: [id number] Transcribed By: Self Edit Transcribed Date: 07/08/2024 [...] Signed Date: 07/08/2024 12:23 ET Workstation ID: [id number] Transcribed By: Self Edit Transcribed Date: 07/08/2024 12:22 ET Raya HEDRICK IMG CT PROCEDURES [place] Result * (ABNORMAL) Iron and TIBC (07/08/2024 11:10 AM EST) Only the most recent of2 resultswithin the time period is included. Pathologist [facility] Iron 20(L) 40 - 150 mcg/dL LAB CHEMISTRY METHOD 07/08/2024 3:44 PM EST [facility] Comment:Hemolysis present TIBC 186(L) 250 - 450 mcg/dL LAB CHEMISTRY METHOD 07/08/2024 3:44 PM EST [facility] Iron Saturation 11(L) 15 - 50 % LAB CHEMISTRY METHOD 07/08/2024 3:44 PM EST [facility] Blood Venous blood specimen / Unknown Venipuncture / Unknown 07/08/2024 11:10 AM EST 07/08/2024 11:42 AM EST Wayne Donahue MD LAB BLOOD ORDERABLES Final Re sult [facility] [address] [place] [address], * (ABNORMAL) Reticulocyte count (07/08/2024 11:10 AM EST) Retic Ct Abs 0.050 0.030 - 0.090 M/mcL LAB HEMETOLOGY METHOD 07/08/2024 2:52 PM [facility] Retic Ct Pct 1.4 0.7 - 1.7 % LAB HEMETOLOGY METHOD 07/08/2024 2:52 PM [facility] Immature Retic Fract 24.5(H) 2.3 - 15.9 % LAB HEMETOLOGY METHOD 07/08/2024 2:52 PM [facility] Reticulocyte Hemoglobin 22.5(L) >29.0 pcg LAB HEMETOLOGY METHOD 07/08/2024 2:52 PM [facility] Blood Venous blood specimen / Unknown Venipuncture / Unknown 07/08/2024 11:10 AM EST 07/08/2024 11:42 AM EST us Wayne Donahue MD LAB BLOOD ORDERABLES Final Re sult Performing Organization Address City/[facility]/ZIP Co de Phone Number [facility] [address] [place] [address], [place] [phone] * (ABNORMAL) Thyroid stimulating hormone (07/08/2024 11:10 AM EST) [facility] TSH 4.50(H) 0.40 - 4.00 mcIU/mL LAB CHEMISTRY METHOD 07/08/2024 3:31 PM [facility] Blood Venous blood specimen / Unknown Venipuncture / Unknown 07/08/2024 11:10 AM EST 07/08/2024 11:42 AM EST us Wayne Donahue MD LAB BLOOD ORDERABLES Final Re sult Performing Organization Address City/[facility]/ZIP Co de Phone Number [facility] [address] [place] [address], [place] [phone] * (ABNORMAL) Osmolality (07/08/2024 11:10 AM EST) Pathologist [facility] Osmolality Iván 307(H) 280 - 300 mOsm/kg LAB CHEMISTRY METHOD 07/08/2024 6:51 PM EST [facility] Blood Venous blood specimen / Unknown Venipuncture / Unknown 07/08/2024 11:10 AM EST 07/08/2024 11:42 AM EST us Wayne Donahue MD LAB BLOOD ORDERABLES Final Re sult Performing Organization Address [facility]/ZIP Co de Phone Number [facility] [address] [place] [address], [place] [phone] * B-type natriuretic peptide (07/08/2024 11:10 AM EST) Pathologist [facility] BNP 86 <=100 pcg/mL LAB CHEMISTRY METHOD 07/08/2024 12:26 PM EST [facility] Blood Venous blood specimen / Unknown Venipuncture / Unknown 07/08/2024 11:10 AM EST 07/08/2024 11:42 AM EST us Jj Wolfe MD LAB BLOOD ORDERABLES [place] Result Performing Organization Address [facility] Co de Phone Number [facility] [address] [place] [address], [place] [phone] * (ABNORMAL) Haptoglobin (07/08/2024 11:10 AM EST) Pathologist [facility] Haptoglobin 570(H) 16 - 200 mg/dL LAB CHEMISTRY METHOD 07/08/2024 3:44 PM EST [facility] Blood Venous blood specimen / Unknown Venipuncture / Unknown 07/08/2024 11:10 AM EST 07/08/2024 11:42 AM EST us Wayne Donahue MD LAB BLOOD ORDERABLES Final Re sult Performing Organization Address City/[facility]/ZIP Co de Phone Number [facility] [address] [place] [address], [place] [phone] * (ABNORMAL) Folate (07/08/2024 11:10 AM EST) Folate >20.0(H) 2.8 - 17.0 ng/ml LAB CHEMISTRY METHOD 07/08/2024 3:51 PM EST [facility] Blood Venous blood specimen / Unknown Venipuncture / Unknown 07/08/2024 11:10 AM EST 07/08/2024 11:42 AM EST us Wayne Donahue MD LAB BLOOD ORDERABLES Final Re sult Performing Organization Address [facility]/ZIP Co de Phone Number [facility] [address] [place] [address], [place] [phone] * (ABNORMAL) Ferritin (07/08/2024 11:10 AM EST) Only the most recent of2 resultswithin the time period is included. Pathologist [facility] Ferritin 708(H) 8 - 252 ng/mL LAB CHEMISTRY METHOD 07/08/2024 3:51 PM EST [facility] Blood Venous blood specimen / Unknown Venipuncture / Unknown 07/08/2024 11:10 AM EST 07/08/2024 11:42 AM EST us Wayne Donahue MD LAB BLOOD ORDERABLES Final Re sult Performing Organization Address City/[facility]/ZIP Co de Phone Number [facility] [address] [place] [address], [place] [phone] * Vitamin B12 (07/08/2024 11:10 AM EST) Pathologist [facility] Vitamin B-12 384 250 - 900 pcg/mL LAB CHEMISTRY METHOD 07/08/2024 3:51 PM EST [facility] Blood Venous blood specimen / Unknown Venipuncture / Unknown 07/08/2024 11:10 AM EST 07/08/2024 11:42 AM EST us Wayne Donahue MD LAB BLOOD ORDERABLES Final Re sult [facility] [address] [place] [address], [place] [phone] * (ABNORMAL) Creatine kinase and CKMB (07/08/2024 11:10 AM EST) Total CK 649(H) 22 - 269 unit/L LAB CHEMISTRY METHOD 07/08/2024 3:51 PM EST [facility] Comment:Hemolysis present CK-MB 13.1(H) 1.0 - 3.6 ng/mL LAB CHEMISTRY METHOD 07/08/2024 3:51 PM EST [facility] CK-MB Index 0.0 0.0 - 5.0 LAB CHEMISTRY METHOD 07/08/2024 3:51 PM EST [facility] Blood Venous blood specimen / Unknown Venipuncture / Unknown 07/08/2024 11:10 AM EST 07/08/2024 11:42 AM EST us Wayne Donahue MD LAB BLOOD ORDERABLES Final Re sult Performing Organization Address [facility]/ZIP Co de Phone Number [facility] [address] [place] [address], [place] [phone] * Cortisol (07/08/2024 11:10 AM EST) Cortisol 58.1 mcg/dL LAB CHEMISTRY METHOD 07/08/2024 3:38 PM EST [facility] Blood Venous blood specimen / Unknown Venipuncture / Unknown 07/08/2024 11:10 AM EST 07/08/2024 11:42 AM EST Narrative [facility] - 07/08/2024 3:38 PM EST CORTISOL REFERENCE RANGE ?? 8 AM SPEC: ??5.0-23.0 mcg/dL ?? 4 PM SPEC: ??3.0-16.0 mcg/dL ?? 8 PM SPEC: ??<5.0 mcg/dL us Wayne Donahue MD LAB BLOOD ORDERABLES Final Re sult [facility] [address] [place] [address], [place] [phone] * (ABNORMAL) Comprehensive metabolic panel (07/08/2024 11:10 AM EST) Sodium 126(L) 133 - 145 mmol/L LAB CHEMISTRY METHOD 07/08/2024 12:54 PM [facility] Potassium 4.2 3.5 - 5.5 mmol/L LAB CHEMISTRY METHOD 07/08/2024 12:54 PM [facility] Comment:Hemolysis present Chloride 93(L) 96 - 110 mmol/L LAB CHEMISTRY METHOD 07/08/2024 12:54 PM [facility] CO2 21 21 - 32 mmol/L LAB CHEMISTRY METHOD 07/08/2024 12:54 PM [facility] Anion Gap 12(H) 3 - 11 LAB CHEMISTRY METHOD 07/08/2024 12:54 PM [facility] Glucose 265(H) 70 - 100 mg/dL LAB CHEMISTRY METHOD 07/08/2024 12:54 PM [facility] BUN 59(H) 5 - 25 mg/dL LAB CHEMISTRY METHOD 07/08/2024 12:54 PM [facility] Comment:Results verified by repeat testing Creatinine 4.10(H) 0.50 - 1.10 mg/dL LAB CHEMISTRY METHOD 07/08/2024 12:54 PM [facility] Comment:Results verified by repeat testing eGFR 10(L) >=60 mL/min/1. 73m2 LAB CHEMISTRY METHOD 07/08/2024 12:54 PM [facility] Comment:Calculation based on the??Chronic Kidney Disease Epidemiology Collaboration (CKD-EPI) equation refit??without adjustment for race. BUN/Creatinine Ratio 14.4 LAB CHEMISTRY METHOD 07/08/2024 12:54 PM [facility] Calcium 10.6(H) 8.5 - 10.5 mg/dL LAB CHEMISTRY METHOD 07/08/2024 12:54 PM [facility] AST (SGOT) 57(H) 10 - 42 unit/L LAB CHEMISTRY METHOD 07/08/2024 12:54 PM [facility] Comment:Hemolysis present ALT (SGPT) 39 10 - 60 unit/L LAB CHEMISTRY METHOD 07/08/2024 12:54 PM [facility] Alkaline Phosphatase 149(H) 42 - 121 unit/L LAB CHEMISTRY METHOD 07/08/2024 12:54 PM [facility] Total Protein 6.3 6.0 - 8.0 g/dL LAB CHEMISTRY METHOD 07/08/2024 12:54 PM [facility] Albumin 2.1(L) 3.2 - 5.0 g/dL LAB CHEMISTRY METHOD 07/08/2024 12:54 PM [facility] Total Bilirubin 0.4 0.0 - 1.4 mg/dL LAB CHEMISTRY METHOD 07/08/2024 12:54 PM [facility] Blood Venous blood specimen / Unknown Venipuncture / Unknown 07/08/2024 11:10 AM EST 07/08/2024 11:42 AM EST us Jj Wolfe MD LAB BLOOD ORDERABLES [place] l Result [facility] [address] [place] [address], * ECG 12 lead (07/08/2024 10:46 AM EST) Only the most recent of2 resultswithin the time period is included. Ventricular Rate ECG 94 BPM GEMUSE Atrial Rate 94 BPM GEMUSE P-R Interval 196 ms GEMUSE QRS Duration 118 ms GEMUSE Q-T Interval 354 ms GEMUSE QTc 442 ms GEMUSE P Wave [place] 79 degrees GEMUSE R [place] 15 degrees GEMUSE T [place] 4 degrees GEMUSE ECG Interpretation Sinus rhythm [...] mg/dL LAB CHEMISTRY METHOD 05/31/2024 12:51 PM [facility] Triglycerides 113 0 - 150 mg/dL LAB CHEMISTRY METHOD 05/31/2024 12:51 PM EST [facility] HDL 60 >=40 mg/dL LAB CHEMISTRY METHOD 05/31/2024 12:51 PM [facility] LDL Calculated 48 0 - 100 mg/dL LAB CHEMISTRY METHOD 05/31/2024 12:51 PM [facility] VLDL Cholesterol Hunter 22.6 mg/dL LAB CHEMISTRY METHOD 05/31/2024 12:51 PM [facility] Non HDL Chol. (LDL+VLDL) 71 <145 mg/dL LAB CHEMISTRY METHOD 05/31/2024 12:51 PM EST [facility] Chol/HDL Ratio 2.2 0.0 - 4.4 LAB CHEMISTRY METHOD 05/31/2024 12:51 PM EST [facility] Blood Venous blood specimen / Unknown Venipuncture / Unknown 05/31/2024 9:22 AM EST 05/31/2024 9:22 AM EST Kayleigh Pedraza [facility] LAB BLOOD ORDERABLES Final Resul t Performing Organization Address [facility] de Phone Number [facility] [address] [place] [address], [place] [phone] * (ABNORMAL) Hemoglobin A1c (05/31/2024 9:22 AM EST) Hemoglobin A1C 7.2(H) <6.5 % LAB CHEMISTRY METHOD 05/31/2024 12:36 PM EST [facility] Mean Bld Glu Estim. 160 mg/dL LAB CHEMISTRY METHOD 05/31/2024 12:36 PM EST [facility] Blood Venous blood specimen / Unknown Venipuncture / Unknown 05/31/2024 9:22 AM EST 05/31/2024 9:22 AM EST Kathy HEDRICK LAB BLOOD ORDERABLES Final Resul t Performing Organization Address [facility]/ZIP Co de Phone Number [facility] [address] [place] [address], [place] [phone] * IR Bx Lung/Mediastinum Perc Ndl Core [...] Signed Date: 05/23/2024 16:55 ET Workstation ID: [id number] Transcribed By: Self Edit Transcribed Date: 05/23/2024 16:49 ET Narrative 05/23/2024 4:55 PM EST INDICATION: Pulmonary nodules. Right upper lobe nodule demonstrates significant PET activity. PROCEDURE: Written informed consent obtained for CT-guided lung biopsy with chest tube placement if needed. prior relevant studies: PET/CT dated May 03, 2024 Scanner: [employer] speed 16 slice VCT Dose reduction technique: [...] studies: PET/CT dated May 03, 2024 Scanner: [employer] speed 16 slice VCT Dose reduction technique: [...] Signed Date: 05/23/2024 16:55 ET Workstation ID: [id number] Transcribed By: Self Edit Transcribed Date: 05/23/2024 16:49 ET us Jaime Grimaldo MD IMG IR PROCEDURES Final Resu lt * SALLY DEXA AXIAL SKELETON (04/15/2018 10:29 AM EDT) Anatomical Region Laterality Modality Mammography 04/15/2018 9:39 AM EDT Narrative 04/15/2018 10:29 AM [facility] Diagnostic Imaging Department [address] [place] [id number] Patient: ??CONTRERAS,ANA A ?/Age/Sex: 1945 - 73 - F Unit#: ??[id number] ? [facility]: [facility] Mnemonic/Ordering Site: ??[facility] Ordering Physician: ??JOSE SANTIZO MD [facility] Dexa Axial Skeleton - 04/15/18 - [...] probability of hip fracture of 2.2%. Code 53556 Dictating Physician: ??JAILYN BARAHONA MD Electronically Signed by: ??JAILYN BARAHONA MD Dic Date/Time: ??04/15/18 1028 Sign date/Time: ??04/15/18 1029 Procedure Note Jailyn Barahona MD - 06/17/2022 [facility] Diagnostic Imaging Department [address] [place] [address] Patient: ANA CONTRERAS Krysta SkinnerB./Age/Sex: 1945 - 73 - F Unit#: [id number] Location/Status: [facility] Mnemonic[facility] Ordering Physician: JOSE SANTIZO MD Sally Dexa Axial Skeleton - [...] density of the femurs bilaterally is 0.854 gm/[id number] is 85% of that of young normals [...] probability of hip fracture of 2.2%. Code 74406 Dictating Physician: JAILYN BARAHONA MD Electronically Signed by: JAILYN BARAHONA MD Dic Date/Time: 04/15/18 1028 Sign date/Time: 04/15/18 1029 Jose Santizo MD IM BI PROCEDURES Final Result from Last 3 Months or Most Recently Relevant to Health Maintenance Additional Health Concerns Infection Onset Date Last Indicated Tuberculosis Rule-Out 08/05/2024 08/05/2024 Insurance [employer] MEDICARE Advance Directives Documents on File Type Date Recorded Patient Rn Cardiology Expl anation Advance Directives and Living Will [...] Second Alternate Health Care Agent Care Teams Advertising Executive Relationship Specialty Start Date End Date Eloisa Vázquez DO [facility] [place] [address] PCP - General 04/12/24
== END 2024-08-22 07:40 | disposition home or self-care (01) ==
LOC: HO.MMNH1L 07:39
PROVIDERS: Visit Provider Family Medicine
DX: E11.9 Type 2 diabetes mellitus without complications (principal)
CPT/HCPCS: 36415; 80048; 85025

== ENCOUNTER 2024-08-29 06:21 | Outpatient (REF) | payer MEDICARE, SELFPAY ==
[2024-08-29 06:13] LABS: MANUAL DIFF FLAG NO
--- OUTSIDE RECORDS SUMMARY | 2024-08-29 06:40 | XMS_ITS | Encounter Summary ---
Author Organization [facility] Address [address] [place] [address] Care Team Providers Care Train Starter Name Role Phone Eloisa Vázquez DO Primary Care Provider [phone] Reason for Visit * Reason Comments Follow-up Encounter Details Date Type Department Care Team (Late st Contact Info) Description 08/22/2024 [address] Work [address] [place] [address] Haley Andrews [facility] Social History Tobacco Use Types Packs/Day Years [...] documented in this encounter Progress Notes * Haley Andrews LMSW - 08/22/2024 10:22 AM EST Progress Note: SW met with patient today for initial assessment.Patient is 79 yo female with diagnosis of lung cancer. 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 TIFFANY validated patient's feeling of stress. Bessy Andrews LMSW [employer] . [facility] documented in this encounter Plan of Treatment Upcoming Encounters Date Type Department Care Team (Late st Contact Info) Description 09/05/2024 10:00 AM EDT Office Visit Endocrinology - [place] [address] [place] [address] Kathy Michelle PA [address] [place] [address] 09/06/2024 11:00 AM EDT Ancillary Procedure [facility] [address] [facility] [address] [place] [address] 10/06/2024 1:15 PM EDT [facility] [address] [place] [address] Eloisa Vázquez DO [address] [place] [address] 11/14/2024 11:30 AM EDT Appointment [facility] CT Scan [address] [place] [address] 12/01/2024 10:00 AM EDT Office Visit Thoracic Surgery - [place] [address] [facility] [address] [place] [address] Cecily Montez MD [address] [facility] [address] [place] [address] documented as of this encounter Visit Diagnoses Not on filedocumented in this encounter Additional Health Concerns Infection Onset Date Last Indicated Resolved Time Tuberculosis Rule-Out 08/05/2024 08/05/2024 documented as of this encounter Care Teams Train Starter Relationship Specialty Start Date End Date Eloisa Vázquez DO [address] [place] [address] PCP - General 04/12/24 documented as of this encounter
--- OUTSIDE RECORDS SUMMARY | 2024-08-29 06:40 | XMS_ITS | Encounter Summary ---
Author Organization [facility] Address [address] [address] Phone Care Team Providers Care Proj Mgr Name Role Phone Eloisa Vázquez Primary Care Provider Encounter Details Date Type Department Care Team (Late st Contact Info) Description 08/23/2024 Treatment [facility]. [address] [address] Rosalie Golden MD [address] [address] Social History Tobacco Use Types Packs/Day Years Used Date Smoking Tobacco: Never Assessed Comments Unknown Sex and Gender Information Value Date Recorded Sex Assigned at Not on file Legal Sex Female 10:11 AM EST Gender Identity Not on file Sexual Orientation Not on file documented as of this encounter Miscellaneous Notes * Dialysis Note - Rosalie Golden MD - 08/23/2024 12:00 AM EST Patient: Ana Contreras : 1945 Note Type: Dialysis Rounds-CLAUDIA Service Date: 08/23/2024 This patient was personally seen during dialysis for the management of acute kidney injury requiring renal replacement therapy. Attending Director Of Patient Safety: BONI PIERCE MD Dialysis Location: [facility] Schedule: Shift: 1 OVERVIEW Patient is stable. HOME MEDICATIONS Medications reviewed. BP AND FLUID ASSESSMENT Acceptable blood pressure. Fluid status acceptable. ADEQUACY ASSESSMENT Target met. Kt/V, Natural Log 1.63 (08/08/24) UREA REDUCTION RATIO (%) 77 (08/08/24) BUN 43 (08/17/24) 50 (08/10/24) 61 (08/08/24) BUN Post Dialysis 14 (08/08/24) Creatinine 4.15 (08/17/24) 4.15 (08/17/24) 3.73 (08/10/24) Bicarbonate (CO2) 28 (08/17/24) 25 (08/10/24) 24 (08/08/24) Sodium 140 (08/17/24) 134 (08/10/24) 136 (08/08/24) Urine Volume 300 (08/17/24) Creatinine renal clearance 1.3 (08/17/24) ACCESS ASSESSMENT Vascular access examined. ANEMIA ASSESSMENT Anemia targets met. Hemoglobin not at target. Hgb 8.0 (08/17/24) 8.2 (08/08/24) Iron Saturation (TSat) 19 (08/08/24) Ferritin 1,209 (08/08/24) Iron 34 (08/08/24) TIBC 176 (08/08/24) MCV 87.0 (08/08/24) Platelets 181 (08/08/24) BMM ASSESSMENT PTH within target. Phosphorus controlled. Calcium controlled. Bone and mineral metabolism parameters reviewed. Calcium 8.6 08/17/24 8.7 08/10/24 8.8 08/08/24 Calcium, Adjusted Total 9.4 08/08/24 Phosphorus, Serum 4.4 08/08/24 Ca*PO4 38.7 08/08/24 PTH, Intact 144 08/08/24 Vitamin D, 25-Hydroxy 38 08/08/24 Magnesium 1.9 08/08/24 Alkaline Phosphatase 76 08/08/24 Aluminum 4 08/08/24 NUTRITION ASSESSMENT Albumin not at goal. Albumin 3.2 08/08/24 Potassium 3.9 08/17/24 4.6 08/10/24 4.7 08/08/24 Hemoglobin A1C 6.3 08/08/24 PHYSICAL EXAM Exam performed. Vital Signs Reviewed. Lungs - Clear. CV - Blood pressure noted. No edema. EXT - No ulcers. ADDITIONAL LABS White Blood Cells 8.5 (08/08/24) [...] 08/12 Watch for renal recovery Signed by: ROSALIE GOLDEN MD on 08/23/2024 at 08:53:13 AM documented in this encounter Plan of Treatment Not on file documented as of this encounter Visit Diagnoses Not on filedocumented in this encounter Care Teams Proj Mgr Relationship Specialty Start Date End Date Eloisa Vázquez [address] [place] [address] PCP - General Internal Medicine 07/11/24 documented as of this encounter
--- OUTSIDE RECORDS SUMMARY | 2024-08-29 06:40 | XMS_ITS | Encounter Summary ---
Author Organization [facility] Address [address] [address] Phone Care Team Providers Care Or Rn Name Role Phone Eloisa Vázquez Primary Care Provider [phone] Encounter Details Date Type Department Care Team (Late st Contact Info) Description 08/17/2024 Treatment [facility]. [address] [address] Boni Pierce MD [address] [address] Social History Tobacco Use Types [...] kidney injury requiring renal replacement therapy. Attending Vp Communications: BONI PIERCE MD Dialysis Location: [facility] Schedule: Shift: 1 ADEQUACY ASSESSMENT Kt/V, [...] on filedocumented in this encounter Care Teams Or Rn Relationship Specialty Start Date End Date Eloisa Vázquez [address] [place] [address] PCP - General Internal Medicine 07/11/24 documented as of this encounter
--- OUTSIDE RECORDS SUMMARY | 2024-08-29 06:40 | XMS_ITS | Encounter Summary ---
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 Chencho Wayne MD [address] [place] [address] Phone: tel: fax: [facility] [address] [facility] [address] [place] [address] Phone: tel: fax: Referral ID Status Reason Start Date Expiration Date V isits Requested Visits Authorized [id number] Authorized 08/18/2024 08/18/2025 1 6 Encounter Details Date Type Department Care Team (Latest Contact Info) Description 08/22/2024 8:30 AM EST - 08/22/2024 11:59 PM EST Hospital Encounter [facility] [address] [place] [address] Chencho Wayne MD [address] [place] [address] Crescentic glomerulonephritis (Primary Dx); Cresentic glomerulonephritis of transplanted kidney Discharge Disposition: Home or Self Care Social History Tobacco Use Types Packs/Day Years [...] Sign Reading Time Taken Comments Blood Pressure 156/68 08/22/2024 1:00 PM EST Pulse 71 08/22/2024 1:00 PM EST Temperature 36.3 ??C (97.4 ??F) 08/22/2024 9:00 AM ES T Respiratory Rate 18 08/22/2024 1:00 PM EST Oxygen Saturation 99% 08/22/2024 1:00 PM EST Inhaled Oxygen Concentration - - [...] Davina Pierre RN documented in this encounter Medications at Time of Discharge cetirizine (ZyrTEC) 10 mg chewable tablet Take [...] total) by mouth every night at bedtime apixaban (ELIQUIS) 5 mg tablet Take 2 tablets (10 mg total) by mouth 2 (two) times a day for 3 days, THEN 1 tablet (5 mg total) 2 (two) times a day. 08/06/2024 5 B complex-vitamin C-folic acid (NEPHRO-SAVITA) 0.8 mg tablet Take 1 tablet by mouth 1 (one) time each day. 08/06/2024 5 carvediloL (COREG) 3.125 mg tablet Take by mouth 2 (two) times a day with meals. glipiZIDE (GLUCOTROL XL) 5 mg 24 hr tablet TAKE 2 TABLETS BY MOUTH IN THE MORNING AND TAKE 1 TABLET BY MOUTH IN THE AFTERNOON (WITH MEALS) 300 tablet 1 08/12/2024 pantoprazole (PROTONIX) 40 mg EC tablet Take [...] 08/06/2024 5 documented as of this encounter Discharge Disposition Disposition Code Departure Means Destination Home or Self Care documented in this encounter Progress Notes * Pau Lopez RN - 08/22/2024 8:30 AM EST Ana arrives via ambulance stretcher from [facility]. She had lengthy hospital stay after well check at her home found her on floor. She reports that she thinks she was on the floorx 10+ hours. She is frail appearing today - answering questions appropriately at this time - stableassessment completed - denies any chest pain, no current shortness of breath - +intermittent cough noted that she reports has been present x few weeks - denies any current weakness or dizziness whileresting in recliner - denies any n/v/d/c - reports daily or every other day bowel movements - good appetite - no rashes - no voiced complaints currently. Has Dialysis catheter noted in left chest - dr chilel in place. IV placed to right arm with no difficulty, +brisk blood return noted. Meds released to pharmacy - paper order verified - patient to receive second dose of Rituxan today - did receivefirst dose on 07/28/24 as inpatient at [facility]. New Patient Assessment Psychosocial needs: - Assessed/Monitored for depression, anxiety, support systems, and coping Health care proxy: discussed, proxy on file - daughter Dennise Nj is HCP Living arrangement: alone and currently residing at [facility] Suicidal Ideation: None Reported 0921 - Premeds given to patient - tylenol swallowed with no difficulty, IV Benadryl also given. Patient resting comfortably in recliner - call chavarria in reach - given warm blanket - TV on - patient prefers lights on in room. 1024 - Rituxan infusion up on pump over 8 steps starting at 50 mg/hr (23.2 ml/hr) increasing by 50 mg/hr every 30 minutes to max dose of 400 mg/hr (186 ml/hr) - verified with Beatrice HAZEL. Patient with no voiced needs - eyes closed resting comfortably. 1130- patient assisted to restroom via wheelchair. 1145 - brief placed on patient for comfort - assisted with 2 RN into wheelchair - back to recliner - Rituxan infusing - CTM. 1250 - good appetite for lunch. 1417 - Rituxan infusion completed - well tolerated - patient resting throughout infusion. Awaiting [facility] ambulance for transport back to facility. 1451 - [facility] here for transport - IV flushed and removed intact. Patient with no additional appt needed at this time. Stable upon discharge. documented in this encounter Plan of Treatment Upcoming Encounters Date Type Department Care Team (Late st Contact Info) Description 09/05/2024 10:00 AM EDT Office Visit Endocrinology - [place] [address] [place] [address] Kathy Michelle PA [address] [place] [address] 09/06/2024 11:00 AM EDT Ancillary Procedure [facility] - [address] [place] [id number] 10/06/2024 1:15 PM EDT Office Visit Internal Medicine - [place] [address] [place] [address] Eloisa Vázquez DO [address] [place] [address] 11/14/2024 11:30 AM EDT Appointment [facility] Scan [address] [place] [phone] 12/01/2024 10:00 AM EDT Office Visit Thoracic Surgery - [place] [address] [place] [phone] Cecily Montez MD [address] [facility] [address] [place] [address] documented as of this encounter Visit Diagnoses Diagnosis 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, not specified as acute or chronic, 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 Administered Medications Inactive Administered Medications - up to 3 most recent administrations Medication Order MAR Action Action Date Dose Rate Site acetaminophen (TYLENOL) tablet 650 mg 650 mg, oral, Once, On Thu08/22/24 at 0930, For 1 dose, 30-60 minutes prior to treatmentIndications:Crescentic glomerulonephritis,Cresentic glomerulonephritis of transplanted kidney Given 08/22/2024 9:21 AM EST 650 mg diphenhydrAMINE (BENADRYL) injection 25 mg 25 mg, intravenous, Once, On Thu08/22/24 at 0930, For 1 dose, IV Push, 30-60 minutes prior to treatmentIndications:Crescentic glomerulonephritis,Cresentic glomerulonephritis of transplanted kidney Given 08/22/2024 9:21 AM EST 25 mg riTUXimab (RITUXAN) 700 mg in sodium chloride 320 mL IVPB 700 mg, intravenous, Once, On Thu08/22/24 at 1000, For 1 dose, ADULT First dose: Initiate infusion at a rate of 50 mg/hr. In the absence of infusion toxicity, increase infusion rate by 50 mg/hr every 30 minutes, to a maximum of 400 mg/hr. ADULT Subsequent doses: Initiate infusion rate of 100 mg/hr. In the absence of infusion toxicity, increase rate by 100 mg/hr every 30 minutes, to a maximum of 400 mg/hr. PEDIATRIC First dose: Initiate infusion at a rate of 0.5 mg/kg/hr (maximum 50 mg/hr). In the absence of infusion toxicity, increase infusion rate by 0.5 mg/kg/hr every 30 minutes, to a maximum of 400 mg/hr. PEDIATRIC Subsequent doses : Initiate infusion rate of 1 mg/kg/hr (maximum 50 mg/hr). In the absence of infusion toxicity, increase rate by 1 mg/kg/hr every 30 minutes, to a maximum of 400 mg/hr.Indications:Crescentic glomerulonephritis,Cresentic glomerulonephritis of transplanted kidney New Bag 08/22/2024 10:24 AM EST 700 mg 23.2 mL/hr documented in this encounter Historical Medications * This list may reflect changes made after this encounter. carvediloL (COREG) 3.125 mg tablet Take by mouth 2 (two) times a day with meals. added in this encounter Orders Medications Ordered That Stefano ht Not Have Been Administered Count Last Ordered Date First Ordered Date acetaminophen (TYLENOL) tablet 650 mg 1 albuterol 2.5 mg /3 mL (0.08 3 %) nebulizer solution 2.5 mg 1 08/22/2024 albuterol HFA (PROAIR HFA ; PROVENTIL HFA ; VENTOLIN HFA) 90 mcg/actuation inhaler 2 puff 1 08/22/2024 diphenhydrAMINE (BENADRYL) injection 25 mg 1 08/22/2024 diphenhydrAMINE (BENADRYL) injection 50 mg 1 08/22/2024 EPINEPHrine (ADRENALIN) IM K it - adult 0.3 mg 1 08/22/2024 famotidine (PF) (PEPCID) injection 20 mg 1 08/22/2024 hydrocortisone sod succ (PF) (SOLU-CORTEF) injection 100 mg 1 08/22/2024 meperidine (PF) (DEMEROL) 25 mg/mL injection 25 mg 1 08/22/2024 sodium chloride 0.9 % bolus 500 mL 1 2024 Nursing Count Last Ordered Date First Orde red Date ONC NURSING COMMUNICATION 2 08/22/2024 ONC NURSING COMMUNICATION 10 1 08/22/2024 ONC NURSING COMMUNICATION 2 2 08/22/2024 ONC NURSING COMMUNICATION 3 1 08/22/2024 TREATMENT CONDITIONS 2 08/22/2024 documented in this encounter Additional Health Concerns Infection Onset Date Last Indicated Resolved Time Tuberculosis Rule-Out 08/05/2024 08/05/2024 documented as of this encounter Care Teams Beauty Sales Consultant Relationship Specialty Start Date End Date Eloisa Vázquez DO [address] [place] [address] [place] [address] PCP - General 04/12/24 documented as of this encounter
--- OUTSIDE RECORDS SUMMARY | 2024-08-29 06:40 | XMS_ITS | Clinical Summary ---
Author Organization [facility] Address [address] [place] [address] Care Team Providers Care International Marketing Executive Name Role Phone GurpreetEloisa Primary Care Provider [phone] Allergies No known active allergies Medications Medication [...] age to complete this topic Care Teams International Marketing Executive Relationship Specialty Start Date End Date Eloisa Vázquez DO [address] [place] [address] PCP - General Internal Medicine 04/07/24
--- OUTSIDE RECORDS SUMMARY | 2024-08-29 06:40 | XMS_ITS | Encounter Summary ---
Author Organization [facility] Address [address] [address] Phone Care Team Providers Care Manager Car Name Role Phone Eloisa Vázquez Primary Care Provider [phone] Encounter Details Date Type Department Care Team (Late st Contact Info) Description 08/26/2024 Treatment [facility]. [address] [address] Boni Pierce MD [address] [address] Social History Tobacco Use Types Packs/Day Years Used Date Smoking Tobacco: Never Assessed Comments Unknown Sex and Gender Information Value Date Recorded Sex Assigned at Not on file Legal Sex Female 10:11 AM EST Gender Identity Not on file Sexual Orientation Not on file documented as of this encounter Miscellaneous Notes * Dialysis Note - Boni Pierce MD - 08/26/2024 12:00 AM EST Patient: Ana Contreras : 1945 Note Type: Dialysis Rounds-CLAUDIA Telehealth Service Date: 08/26/2024 Telehealth encounter using audiovisual technology, performed according to state requirements. Appropriate patient consent obtained. This patient was personally seen during dialysis for the management of acute kidney injury requiring renal replacement therapy. Attending Body Builder: BONI PIERCE MD Dialysis Location: [facility] Schedule: Shift: 1 ADEQUACY [...] ADDITIONAL COMMENT COMMENTS: 08/08/24 Getting rec from [facility] 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 08/17/24 closely monitoring for recovery 08/26/24 s/p rituxin infusion 07/28/24 Need to Rrange 2 nd dose for 08/12 Watch for renal recovery Signed by: BONI PIERCE MD on 08/26/2024 at 10:01:15 PM documented in this encounter Plan of Treatment Not on file documented as of this encounter Visit Diagnoses Not on filedocumented in this encounter Care Teams Manager Car Relationship Specialty Start Date End Date Marie [address] [place] [address] PCP - General Internal Medicine 07/11/24 documented as of this encounter
[2024-08-29 06:41] LABS: Eosinophils Percent Auto 0.2 % (0-4); Hematocrit 21.9 % (37.0-47.0); Hemoglobin 7.1 g/dl (12.0-16.0); Imm Gran Abs Auto 0.02 X10*3/uL (0.00-0.03); Imm Gran Pct Auto 0.3 % (0.0-0.4); Lymphocytes Percent Auto 15.6 % (20-40); Mean Corpuscular HGB Conc 32.4 g/dl (31.0-35.0); Mean Corpuscular Volume 86.2 fL (80.0-98.0); Mean Platelet Volume 10.4 fL (9.4-12.3); Monocytes Absolute Auto 0.5 X10*3/uL (0.1-1.2); Monocytes Percent Auto 7.6 % (2-11); Neutrophils Absolute Auto 4.7 x10*3/uL (2.0-8.3); Neutrophils Percent Auto 76.3 % (45-73); Platelet Count 125 X10*3/uL (160-400); Red Blood Count 2.54 X10*6/uL (4.20-5.50); Red Cell Distribution Width 21.3 % (11.0-16.0); White Blood Count 6.2 X10*3/uL (4.8-10.8)
--- OUTSIDE RECORDS SUMMARY | 2024-08-29 06:42 | XMS_ITS | Encounter Summary ---
Author Organization [facility] Address [address] [place] [address] Care Team Providers Care Editor Managing Director Name Role Phone Eloisa Vázquez DO Primary Care Provider Reason for Visit * Reason Comments Fall * Auth/Cert Specialty Diagnoses / Procedures Referred By Contac t Referred To Contact Diagnoses Acute encephalopathy Procedures . Wayne Donahue MD [address] [place] [phone] Phone: tel: fax: [facility] Emergency [address] [place] [address] Phone: tel: Referral ID Status Reason Start Date Expiration Date Visits Re quested Visits Authorized [id number] 1 1 Encounter Details Date Type Department Care Team (Late st Contact Info) Description 08/05/2024 11:30 AM EST - 08/05/2024 1:30 PM EST Surgery [facility] Main OR [address] [place] [address] Cecily Montez MD [address] [place] [id number] Navigation bronchoscopy/EBUS [38823 (CPT??) +2 more] Surgery Details Date/Time Status Location OR Service Patient Class Case Class Case Type Trauma Case? 08/05/2024 11:30 AM Posted [facility] OR OR 15 Thoracic Surgery Inpatient F [...] from the original note were not included. [facility] DISCHARGE SUMMARY Patient Information Ana Contreras : [...] was found down on the ground by [facility]. She was unsure the detailsof how [...] will be transferred to the care of [place] staff for further management of their acute encephalopathy, fall. Hospital course Patient is 79 years old female with past medical history significant for type 2 diabetes, hypertension, chronic kidney disease stage IV, iron deficiency anemia, dyslipidemia, lung nodule brought to the [facility] after wellness check was called to police by her daughter. Patient was foundon the ground unable to get up and was confused. Patient admitted to medical floors for further management of chronic kidney disease, metabolic encephalopathy. # Acute on chronic kidney injury, crescentic glomerulonephritis requiring hemodialysis. -Patient is on hemodialysis Thursday. On prednisone, Bactrim every Thursday. Per recreational therapy aide patient's kidney biopsy consistent with crescentic glomerulonephritis. Rituximab given on 07/28/2024. Next dose in 2 weeks. Patient is being followed by recreational therapy aide for hemodia lysis. Upon DC continue oral [...] Follow-Up Instructions and Recommendations Eloisa Vázquez DO [address] [place] [id number] Schedule an appointment as soon as possible for a visit in 3 day(s) for transition of care visit, If symptoms worsen, As needed Chencho Wayne MD [address] [place] [address] [facility] [address] Schedule an appointment as soon as possible for a visit in 1 week(s) for kidney failure management [address] [address] Discharge Procedure Orders Discharge Diet: [...] from the original note were not included. [facility] DISCHARGE SUMMARY Patient Information Ana Contreras : [...] was found down on the ground by [facility]. She was unsure the detailsof how [...] 12- 13. She also follows with Dr. Brynat. Vitals are as follows: Temperature of 36.4, [...] will be transferred to the care of [place] staff for further management of their acute encephalopathy, fall. Hospital course Patient is 79 years old female with past medical history significant for type 2 diabetes, hypertension, chronic kidney disease stage IV, iron deficiency anemia, dyslipidemia, lung nodule brought to the [facility] after wellness check was called to police by her daughter. Patient was foundon the ground unable to get up and was confused. Patient admitted to medical floors for further management of chronic kidney disease, metabolic encephalopathy. # Acute on chronic kidney injury, crescentic glomerulonephritis requiring hemodialysis. -Patient is on hemodialysis Thursday. On prednisone, Bactrim every Thursday. Per recreational therapy aide patient's kidney biopsy consistent with crescentic glomerulonephritis. Rituximab given on 07/28/2024. Next dose in 2 weeks. Patient is being followed by recreational therapy aide for hemodia lysis. Upon DC continue oral [...] and Recommendations Eloisa Vázquez DO [address] [facility] [address] Schedule an appointment as soon as possible for a visit in 3 day(s) for transition of care visit, If symptoms worsen, As needed Chencho Wayne MD [address] [place] [address] [facility] [phone] Schedule an appointment as soon as possible for a visit in 1 week(s) for kidney failure management [address] [phone] Discharge Procedure Orders Discharge Diet: [...] Disposition Code Departure Means Destination Comment s Snf Facility documented in this encounter Progress Notes * Jacquelin Davidson RN - 08/06/2024 1:04 PM EST Report given to ems, to transport to [facility]. * Chencho Wayne MD - 08/06/2024 [...] 0722 Initial Transition Plan Initial Transition Plan Snf Facility ([facility]) Transportation Transportation at discharge [facility] providing transportation [place] What day is the transport expected? 08/06/24 What time is the transport expected? 1300 Final Discharge Disposition Snf Facility * Katina Machuca RN - 08/06/2024 [...] was found down on the ground by [facility]. She was unsure the detailsof how [...] will be transferred to the care of [place] staff for further management of their acute encephalopathy, fall. Hospital course Patient is 79 years old female with past medical history significant for type 2 diabetes, hypertension, chronic kidney disease stage IV, iron deficiency anemia, dyslipidemia, lung nodule brought to the [facility] after wellness check was called to police by her daughter. Patient was foundon the ground unable to get up and was confused. Patient admitted to medical floors for further management of chronic kidney disease, metabolic encephalopathy. # Acute on chronic kidney injury, crescentic glomerulonephritis requiring hemodialysis. -Patient is on hemodialysis Thursday. On prednisone, Bactrim every Thursday. Per recreational therapy aide patient's kidney biopsy consistent with crescentic glomerulonephritis. Rituximab given on 07/28/2024. Next dose in 2 weeks. Patient is being followed by recreational therapy aide for hemodia lysis. Upon DC continue oral [...] 1337 Initial Transition Plan Initial Transition Plan Snf Facility ([facility]) Transportation Transportation at discharge [facility] providing [...] of Shift Summary: PLAN TO D/C TO [facility] * Louis Welch RN - 08/05/2024 [...] Ordered 08/05/24 0001 Adult NPO diet Location: [facility]; Diet: NPO- Except for Medications Diet effective midnight Question Answer Comment Location [facility] Diet NPO- Except for Medications 08/04/24 0838 07/11/24 1133 Dietary nutrition supplements Two times daily (BID); [facility]; Diabetic Supplement Continuous Question Answer Comment Frequency Two times daily (BID) Location [facility] Supplements Diabetic Supplement 07/11/24 1132 [...] or fat depletion Skin: Skin intact per nurse practical Nutrition Diagnosis: Code Type: None Identified Status: [...] weeks and will be tapered by the recreational therapy aide Continue PPI in the outpatient setting if patient is on prednisone Continue Bactrim DS in the outpatient setting thrice weekly () as patient is immunosuppressed Lung mass biopsy with Dr. Montez today s/p transfusion yesterday Outpatient HD arranged at [facility] 1st shift [phone] on hold since July 21. I have given orders for the patient to start on Thursday Patient for discharge to [facility] Discussed with medical team. Patient to get transfused today From renal standpoint patient can be discharged today or on Thursday The outpatient facility needs to arrange for rituximab infusion on August 11 or at [facility] outpatient infusion-they can touch base with the renal MD covering for [facility] for that shift for orders and dosage Discussed with the medical team/outpatient dialysis nursing staff and bilingual case manager history Chencho Wayne MD * [...] a 79 y.o. female : 1945 MR#: [id number] SUBJECTIVE Subjective Patient seen by the bedside [...] of fentanyl administered during the procedure. Scanner: Thinktwice [address] Dose reduction technique: AEC [...] Signed Date: 07/22/2024 17:00 ET Workstation ID: [id number] Transcribed By: Self Edit Transcribed Date: 07/22/2024 16:58 ET ASSESSMENT & PLAN Patient is 79 years old female with past medical history significant for type 2 diabetes, hypertension, chronic kidney disease stage IV, iron deficiency anemia, dyslipidemia, lung nodule brought to the [facility] after wellness check was called to police by her daughter. Patient was foundon the ground unable to get up and was confused. Patient admitted to medical floors for further management of chronic kidney disease, metabolic encephalopathy. # Acute on chronic kidney injury, crescentic glomerulonephritis requiring hemodialysis. -Patient is on hemodialysis Thursday. On prednisone, Bactrim every Thursday. Per recreational therapy aide patient's kidney biopsy consistent with crescentic glomerulonephritis. Rituximab given on 07/28/2024. Next dose in 2 weeks. Patient is being followed by recreational therapy aide for hemodia lysis. # Right upper lobe [...] weeks and will be tapered by the recreational therapy aide Continue PPI in the outpatient setting if patient is on prednisone Continue Bactrim DS in the outpatient setting thrice weekly () as patient is immunosuppressed Lung mass biopsy with Dr. Montez tomorrow Renal diet Outpatient HD arranged at [facility] - 1st shift [phone] on hold since July 21. I have given orders for the patient to start on Thursday Patient for discharge to [facility] Discussed with medical team. Patient to get transfused today [facility] From renal standpoint patient can be discharged tomorrow or on Thursday The outpatient facility needs to arrange for rituximab infusion on August 11 or at [facility] outpatient infusion-they can touch base with the renal MD [facility] for that shift for orders and dosage Discussed with the medical team/outpatient dialysis nursing staff and bilingual case manager Chencho Wayne MD * Isidra Florence - 08/04/2024 9:38 AM EST [facility] Physical Therapy Treatment PT Discharge Recommendations: Inpatient rehab facility placement, long-term facility placement Equipment Recommended: rolling walker Staff Recommendations for safe patient handling: min/modA transfers/bed mob Precautions Medical Precautions: Fall Risk Safety Interventions: Call chavarria within reach, ID band on, Bed alarm RUE Weight Bearing Status: Full LUE Weight Bearing Status: Full RLE Weight Bearing Status: Full LLE Weight Bearing Status: Full History of Present Illness: Patient is a 79 y.o. female admitted to [facility] on 07/08/2024 with: Patient Active Problem List Diagnosis Hypertension Hyperlipidemia History of cancer of unknown primary site CKD (chronic kidney disease) stage 4, GFR 15-29 ml/min ([facility]) Iron deficiency anemia Impaired renal function Type 2 diabetes mellitus without complication, without long-term current use of insulin ([facility]) Lung mass Pulmonary nodule Fall prevention [...] week PT Discharge Recommendations Inpatient rehab facility placement;long-term facility placement Equipment Recommended rolling walker PT [...] PT Discharge Recommendations: Inpatient rehab facility placement, long-term facility placement Equipment Recommended: rolling walker Barriers [...] RN - 08/04/2024 9:17 AM EST This job specification writer received a call from [facility] at [facility] where they have had a dialysis STR bed open and are accepting and going for insurance auth. ICC notified provider and will follow for transfer once insurance auth obtained. * Nelli Schmidt OT - 08/04/2024 8:30 AM EST [facility] Occupational Therapy Treatment Note DATE: July TIME IN: 0830 TIME OUT: 0900 Pt: Ana Contreras 561/[id number] DISCHARGE RECS: Inpatient rehab facility placement, long-term facility placement EQUIPMENT RECS: Walker-rolling SAFE PT [...] Complete OT Discharge Recommendations Inpatient rehab facility placement;long-term facility placement Equipment Recommended Walker-rolling ADDITIONAL COMMENTS: [...] up Transition Plan Back up Transition plan Snf Facility Anticipated Discharge Needs Discipline following for SNF placement Meter Shop Supervisor DANITZA: 08/06 Barriers: Accepting SNF w HD, Bronch w lung mass bx re-scheduled 08/05, ability to stand/pivot for family to transport to HD. Plan: ACR vs SNF pending accepting facility with HD and or ability to transport to [facility]. [facility] can only continue to hold OPT HD slot until 08/05. ICC s/w family and updated on [facility] options. Bill [facility] Meter Shop Supervisor, , called [facility] and will attempt to assist with [...] a 79 y.o. female : 1945 MR#: [id number] SUBJECTIVE Subjective Patient seen by the bedside [...] of fentanyl administered during the procedure. Scanner: Thinktwice [address] Dose reduction technique: AEC [...] Signed Date: 07/22/2024 17:00 ET Workstation ID: [id number] Transcribed By: Self Edit Transcribed Date: 07/22/2024 16:58 ET ASSESSMENT & PLAN Patient is 79 years old female with past medical history significant for type 2 diabetes, hypertension, chronic kidney disease stage IV, iron deficiency anemia, dyslipidemia, lung nodule brought to the [facility] after wellness check was called to police by her daughter. Patient was foundon the ground unable to get up and was confused. Patient admitted to medical floors for further management of chronic kidney disease, metabolic encephalopathy. # Acute on chronic kidney injury, crescentic glomerulonephritis requiring hemodialysis. -Patient is on hemodialysis Thursday. On prednisone, Bactrim every Thursday. Per recreational therapy aide patient's kidney biopsy consistent with crescentic glomerulonephritis. Rituximab given on 07/28/2024. Next dose in 2 weeks. Patient is being followed by recreational therapy aide for hemodia lysis. # Right upper lobe [...] Montez Renal diet Outpatient HD arranged at [facility] m-w-f 1st shift [phone] on hold since July 21. We need to know before Thursday if he can give away the chair and patient disposition Consider Kana Fernández or Maribeth if going to [facility] Discussed with medical team. Patient to get transfused today Will follow [facility] w team If patient discharged [...] Isidra Florence - 08/02/2024 2:31 PM EST [facility] Physical Therapy Treatment PT Discharge Recommendations: Inpatient rehab facility placement, long-term facility placement Equipment Recommended: rolling walker Staff [...] is a 79 y.o. female admitted to [facility] on 07/08/2024 with: Patient Active Problem List Diagnosis Hypertension Hyperlipidemia History of cancer of unknown primary site CKD (chronic kidney disease) stage 4, GFR 15-29 ml/min ([facility]) Iron deficiency anemia Impaired renal function Type 2 diabetes mellitus without complication, without long-term current use of insulin ([facility]) Lung mass Pulmonary nodule Fall prevention [...] week PT Discharge Recommendations Inpatient rehab facility placement;long-term facility placement Equipment Recommended rolling walker PT [...] PT Discharge Recommendations: Inpatient rehab facility placement, long-term facility placement Equipment Recommended: rolling walker Barriers [...] a 79 y.o. female : 1945 MR#: [id number] SUBJECTIVE Subjective Patient seen by the bedside [...] of fentanyl administered during the procedure. Scanner: Thinktwice [address] Dose reduction technique: AEC [...] Signed Date: 07/22/2024 17:00 ET Workstation ID: [id number] Transcribed By: Self Edit Transcribed Date: 07/22/2024 16:58 ET ASSESSMENT & PLAN Patient is 79 years old female with past medical history significant for type 2 diabetes, hypertension, chronic kidney disease stage IV, iron deficiency anemia, dyslipidemia, lung nodule brought to the [facility] after wellness check was called to police by her daughter. Patient was foundon the ground unable to get up and was confused. Patient admitted to medical floors for further management of chronic kidney disease, metabolic encephalopathy. # Acute on chronic kidney injury, crescentic glomerulonephritis requiring hemodialysis. -Patient is on hemodialysis Thursday. On prednisone, Bactrim every Thursday. Per recreational therapy aide patient's kidney biopsy consistent with crescentic glomerulonephritis. Rituximab given on 07/28/2024. Next dose in 2 weeks. Patient is being followed by recreational therapy aide for hemodia lysis. # Right upper lobe [...] Schmidt, OT - 08/02/2024 1:35 PM EST [facility] Occupational Therapy Treatment Note DATE: Friday August 02, 2024 TIME IN: 1335 TIME OUT: 1405 Pt: Ana Contreras 561/561-2 DISCHARGE RECS: Inpatient rehab facility placement, long-term facility placement EQUIPMENT RECS: Walker-rolling SAFE PT [...] Complete OT Discharge Recommendations Inpatient rehab facility placement;long-term facility placement Equipment Recommended Walker-rolling ADDITIONAL COMMENTS: [...] Montez Renal diet Outpatient HD arranged at [facility] -w- 1st shift [phone]) Consider Kana Fernández or Maribeth if going [...] Montez Renal diet Outpatient HD arranged at [facility] - 1st shift [phone]) Consider Kana Fernández or Maribeth if going to SNF [facility] Anthony Norton MD * Steve Cruz MD - 08/01/2024 4:42 PM EST Images from the original note were not included. [facility] PROGRESS NOTE Date: 08/01/2024 Author: Steve Cruz MD Patient ID: Ana Contreras is a 79 y.o. female : 1945 MR#: [id number] SUBJECTIVE Subjective Patient seen by the bedside [...] of fentanyl administered during the procedure. Scanner: Thinktwice [address] Dose reduction technique: AEC [...] Signed Date: 07/22/2024 17:00 ET Workstation ID: [id number] Transcribed By: Self Edit Transcribed Date: 07/22/2024 16:58 ET ASSESSMENT & PLAN Patient is 79 years old female with past medical history significant for type 2 diabetes, hypertension, chronic kidney disease stage IV, iron deficiency anemia, dyslipidemia, lung nodule brought to the [facility] after wellness check was called to police by her daughter. Patient was foundon the ground unable to get up and was confused. Patient admitted to medical floors for further management of chronic kidney disease, metabolic encephalopathy. # Acute on chronic kidney injury, crescentic glomerulonephritis requiring hemodialysis. -Patient is on hemodialysis Thursday. On prednisone, Bactrim every Thursday. Per recreational therapy aide patient's kidney biopsy consistent with crescentic glomerulonephritis. Rituximab given on 07/28/2024. Next dose in 2 weeks. Patient is being followed by recreational therapy aide for hemodia lysis. # Right upper lobe [...] Camara, PT - 08/01/2024 11:00 AM EST [place], [place] Acute Care PT TREATMENT 08/01/2024 Patient Information Ana Contreras 1945 79 y.o. Ambulation: Walking Assistance: Minimum assistance Device: Rolling walker Distance Ambulated (ft): (5 steps to transfer bed to commode + 3 to 4 steps forward and 3 to 4 steps back with RW) PLOF: Level of [place]: Independent with mobility and functional transfers Lives [...] Schmidt, OT - 08/01/2024 10:50 AM EST [facility] Occupational Therapy Treatment Note DATE: Thursday August 01, 2024 TIME IN: 1050 TIME OUT: 1125 Pt: Ana Contreras 561/561-2 DISCHARGE RECS: long-term facility placement, Inpatient rehab facility placement EQUIPMENT [...] - Evaluation Status Complete OT Discharge Recommendations long-term facility placement;Inpatient rehab facility placement Equipment Recommended [...] onward) Start Ordered 07/27/24 1332 Adult diet [facility]; General; Renal- Chronic Kidney Disease; Self-Select Meals Diet effective now Question Answer Comment Location [facility] Diet Type (req) General General Diet Renal- Chronic Kidney Disease Is the patient able to participate in meal ordering? Self-Select Meals 07/27/24 1332 07/11/24 1133 Dietary nutrition supplements Two times daily (BID); [facility]; Diabetic Supplement Continuous Question Answer Comment Frequency Two times daily (BID) Location [facility] Supplements Diabetic Supplement 07/11/24 1132 [...] at home. No noted food allergies. Appetite SECURITY REPRESENTATIVE: Poor Intake SECURITY REPRESENTATIVE: Decreased Weight History: Wt Readings from Last [...] reports improved PO intake since last visit. DATA CENTER OPERATOR at bedside who confirmed she has been [...] or fat depletion Skin: Skin intact per nurse practical Nutrition Diagnosis: Code Type: None Identified Status: [...] Katina Altamirano RN Outcome: Progressing 08/01/2024252 by aKtina Altamirano RN Outcome: [...] a 79 y.o. female : 1945 MR#: [id number] SUBJECTIVE Follow up:metabolic encephalopathy, renal failure requiring [...] of fentanyl administered during the procedure. Scanner: Thinktwice [address] Dose reduction technique: AEC [...] Signed Date: 07/22/2024 17:00 ET Workstation ID: [id number] Transcribed By: Self Edit Transcribed Date: 07/22/2024 16:58 ET ASSESSMENT & PLAN Patient is an 79 woman with HTN, DM2, CKD 4, iron deficiency anemia, hyperlipidemia, and recent diagnosis of lung nodule with planned bronchoscopy and EBUS , she was brought to the [facility] ER on 07/08 after wellness check [...] tomorrow Patient will need SNF with hemodialysis capability([facility]). ICC already aware and referrals placed. [...] 2 (CMS/HCC) 02/14/2014 DX:Diabetes mellitus, type 2 ([facility]) DVT, lower extremity (CMS/[facility]) LEFT LEG Family history of early [...] Montez Renal diet Outpatient HD arranged at [facility] - 1st shift [phone]) Consider Kana Jolene or Maribeth if going to [facility] Mindy Katz MD Cosigned by Miguel Quiles MD at 08/02/2024 2:08 PM EST * Jonny Mathur MD - 07/30/2024 12:28 PM EST Images from the original note were not included. [facility] PROGRESS NOTE Date: 07/30/2024 Author: Jonny Mathur MD Patient ID: Ana Contreras is a 79 y.o. female : 1945 MR#: [id number] SUBJECTIVE Follow up:metabolic encephalopathy, renal failure w/renal [...] of fentanyl administered during the procedure. Scanner: Thinktwice [address] Dose reduction technique: AEC [...] Signed Date: 07/22/2024 17:00 ET Workstation ID: [id number] Transcribed By: Self Edit Transcribed Date: 07/22/2024 [...] from the original note were not included. [facility] PROGRESS NOTE Date: 07/29/2024 Author: Jonny Mathur MD Patient ID: Ana Contreras is a 79 y.o. female : 1945 MR#: [id number] SUBJECTIVE Follow up:metabolic encephalopathy, renal failure requiring [...] of fentanyl administered during the procedure. Scanner: Thinktwice [address] Dose reduction technique: AEC [...] Signed Date: 07/22/2024 17:00 ET Workstation ID: [id number] Transcribed By: Self Edit Transcribed Date: 07/22/2024 [...] Intake/Output Summary (Last 24 hours) at 07/29/2024 8617 Last data filed at 07/29/2024 0730 Gross [...] Montez Renal diet Outpatient HD arranged at [facility] - 1st shift [phone]) Consider Kana Fernández or Maribeth if going to [facility] Miguel Quiles MD * Sharon [...] a 79 y.o. female : 1945 MR#: [id number] SUBJECTIVE Follow up:metabolic encephalopathy, renal failure requiring [...] of fentanyl administered during the procedure. Scanner: Thinktwice [address] Dose reduction technique: AEC [...] Signed Date: 07/22/2024 17:00 ET Workstation ID: [id number] Transcribed By: Self Edit Transcribed Date: 07/22/2024 [...] examined No complaints D/w medical attending D/w [facility] and [facility] pathology MEDICAL HISTORY Past Medical [...] Montez Renal diet Outpatient HD arranged at [facility] -w-f 1st shift [phone]) Consider Kana Fernández or Maribeth if going to [facility] Miguel Quiles MD * Jonny Mathur MD - 07/27/2024 7:02 PM EST Images from the original note were not included. SONYA PROGRESS NOTE Date: 07/27/2024 Author: Jonny Mathur MD Patient ID: Ana Contreras is a 79 y.o. female : 1945 MR#: [id number] SUBJECTIVE Follow up:metabolic encephalopathy, renal failure requiring [...] of fentanyl administered during the procedure. Scanner: Thinktwice [address] Dose reduction technique: AEC [...] Signed Date: 07/22/2024 17:00 ET Workstation ID: [id number] Transcribed By: Self Edit Transcribed Date: 07/22/2024 [...] Ordered 07/27/24 0001 Adult NPO diet Location: [facility]; Diet: NPO- Except for Medications Diet effective midnight Question Answer Comment Location [facility] Diet NPO- Except for Medications 07/26/24 1755 07/11/24 1133 Dietary nutrition supplements Two times daily (BID); [facility]; Diabetic Supplement Continuous Question Answer Comment Frequency Two times daily (BID) Location [facility] Supplements Diabetic Supplement 07/11/24 1132 [...] at home. No noted food allergies. Appetite SECURITY REPRESENTATIVE: Poor Intake SECURITY REPRESENTATIVE: Decreased Weight History: Wt Readings from Last [...] lung biopsy this morning. Currently NPO. Per nurse practical, pt consuming 25-50% of meals since last [...] or fat depletion Skin: Skin intact per nurse practical Nutrition Diagnosis: Code Type: None Identified Status: [...] Montez Renal diet Outpatient HD arranged at [facility] m-w-f 1st shift [phone]) Consider Kana Fernández or Maribeth if going to [facility] Miguel Quiles MD * Katina Machuca RN - 07/27/2024 4:29 AM EST Goals: Problem: Falls: Fall Risk (Adult [facility]) Goal: (Goal) Patient will experience [...] a 79 y.o. female : 1945 MR#: [id number] SUBJECTIVE Follow up:metabolic encephalopathy, renal failure requiring [...] of fentanyl administered during the procedure. Scanner: Thinktwice [address] Dose reduction technique: AEC [...] Signed Date: 07/22/2024 17:00 ET Workstation ID: [id number] Transcribed By: Self Edit Transcribed Date: 07/22/2024 [...] Fernández considering pending bed and HD slot. [facility] accepting w family to provide HD transportation support if Pt can get in/out of private vehicle. * Nithya Constantino, PT - 07/26/2024 8:45 AM EST Patient: Ana Contreras Age: 79 y.o. Sex: female Acute encephalopathy [facility] Physical Therapy RE-Evaluation Ambulation: Walking [...] Distance Ambulated (ft): 3 PLOF: Level of Peach: Independent with mobility and functional transfers Lives With: Alone Type of Home: House Home Adaptive Equipment: Cane, Rollator Home Layout: One level Home Access: Stairs to enter without rails DME Needs: r walker PT Discharge Recommendation: Inpatient rehab facility placement, long-term facility placement Reason for current recommendation based [...] Shower/Tub Tub/shower unit Prior Function Level of Peach Independent with mobility and functional transfers Ambulation [...] week PT Discharge Recommendations Inpatient rehab facility placement;long-term facility placement Equipment Recommended r walker PT [...] Montez Renal diet Outpatient HD arranged at [facility] -w-f 1st shift [phone]) Consider Kana Fernández or Maribeth if going to [facility] Miguel Quiles MD * Katina [...] a 79 y.o. female : 1945 MR#: [id number] SUBJECTIVE Follow up:metabolic encephalopathy, renal failure requiring [...] of fentanyl administered during the procedure. Scanner: Thinktwice [address] Dose reduction technique: AEC [...] Signed Date: 07/22/2024 17:00 ET Workstation ID: [id number] Transcribed By: Self Edit Transcribed Date: 07/22/2024 [...] Montez Renal diet Outpatient HD arranged at [facility] -- 1st shift [phone]) Consider Kana Fernández or Maribeth if going to [facility] Miguel Quiles MD * Tarsha Corea RN - 07/25/2024 8:45 AM EST DANITZA: 07/28 Barriers: Renal Bx 07/22 w/ path pending, new HD, trend labs, H/H, heparin drip- LLE DVT, repeat Pt eval, lung mass biopsy 07/27 Plan: 1st choice - Kana Fernández or Maribeth d/t onsite HD. [facility] accepting w family to provide HD [...] up Transition Plan Back up Transition plan Snf Facility Barriers to discharge: Renal Bx 07/22 path pending, new HD, trend labs, H/H, heparin drip-LLE DVT, repeat Pt eval, lung mass biopsy 07/27 Plan: [facility] accepting w family to provide HD transportation support. ICK Stuart MD - 07/24/2024 1:11 PM EST Images from the original note were not included. SONYA PROGRESS NOTE Date: 07/24/2024 Author: Lencho Stuart MD Patient ID: Ana Contreras is a 79 y.o. female : 1945 MR#: [id number] SUBJECTIVE CC: Follow-up renal failure No complaints. [...] SNF bed, anticoagulation/lung mass biopsy HCP: DaughterDennise. [phone] * Tony Golden MD - 07/24/2024 8:59 [...] a 79 y.o. female : 1945 MR#: [id number] SUBJECTIVE CC: Follow-up renal failure Post procedure [...] DC likely next week. HCP: Daughter, Dennise. [phone] ICK * Nelli Schmidt OT - 07/23/2024 [...] a 79 y.o. female : 1945 MR#: [id number] SUBJECTIVE CC: Follow-up renal failure Seen in [...] DC likely next week. HCP: Daughter, Dennise. [phone] * Kayleigh Laguna RD - 07/22/2024 12:44 [...] Ordered 07/22/24 0001 Adult NPO diet Location: [facility]; Diet: NPO- Except for Medications Diet effective midnight Question Answer Comment Location [facility] Diet NPO- Except for Medications 07/21/24 1326 07/11/24 1133 Dietary nutrition supplements Two times daily (BID); [facility]; Diabetic Supplement Continuous Question Answer Comment Frequency Two times daily (BID) Location [facility] Supplements Diabetic Supplement 07/11/24 1132 Food/Nutrition History: Previous Diet / Nutrition Education / Counseling: Per MST screeening, pt reports weight loss of 24-33 lb in past 3 months, and reports poor PO intake. Pt living by herself prior to admission, but hassupport from children. History of DM- takes glipizide at home. No noted food allergies. 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 Per IPR, Pulmonary IR stated possible intervention 07/27. Plan: STR pending accepting facility w HD support. * Nithya Constantino, PT - 07/22/2024 8:30 AM EST Patient: Ana A Contreras Age: 79 y.o. Sex: female Acute encephalopathy [facility] Physical Therapy Treatment Ambulation: Walking Assistance: Minimum assistance Walking Deficit: Steadying, Verbal cueing, Supervision/safety awareness, Increased time to complete, Assist for trunk control, Assist for weight shifting, Limited endurance, Impaired balance, LE weakness Device: Rolling walker Distance Ambulated (ft): 2 PLOF: Level of Peach: Independent with mobility and functional transfers Lives [...] a seated rest, stood again , [facility], min assist and took 4 steps sideways toward HOB in prep of supine, with assist to weight shiftand balance (pt was assisted back to bed due to dizziness which did not dissipate) PT Assessment PT Assessment Results Decreased strength;Decreased range of motion;Decreased endurance;Impaired balance;Impaired gait;Decreased mobility;Impaired vision;Other (Comment) (dizziness) Prognosis Good Medical Staff Made Aware Yes Plan PT Discharge Recommendations Inpatient rehab facility placement;long-term facility placement Equipment Recommended r walker Barriers [...] mellitus, type 2 (HCC) DVT, lower extremity (CMS/[facility]) LEFT LEG Family history of early [...] a 79 y.o. female : 1945 MR#: [id number] SUBJECTIVE CC: Follow-up renal failure Seen during [...] DC likely next week. HCP: Daughter, Dennise. [phone] * Louis Welch RN - 07/21/2024 12:55 [...] request to regional HD placement) Referral to [facility] made as patient lives in the [...] a 79 y.o. female : 1945 MR#: [id number] SUBJECTIVE CC: Follow-up renal failure Seen in [...] renal biopsy, pending SNF bed. HCP: DaughterDennise. [phone] * Miguel Quiles MD - 07/20/2024 12:09 [...] 79 y.o. Sex: female Acute encephalopathy [facility] Physical Therapy Treatment Ambulation: Walking Assistance: Moderate assistance Device: Rolling walker Distance Ambulated (ft): 2 PLOF: Level of Peach: Independent with mobility and functional transfers Lives [...] a 79 y.o. female : 1945 MR#: [id number] SUBJECTIVE CC: Follow-up RENE, DVT and encephalopathy [...] days. Barrier: Heparin, anemia HCP: Daughter, Dennise. [phone] * Jose Lujan RN - 07/19/2024 11:20 [...] PRN for the MARTINEZ with improvement post integrative medicine physician. Pt's floorRN aware of leg pain and [...] a 79 y.o. female : 1945 MR#: [id number] SUBJECTIVE CC: Follow-up RENE, DVT and encephalopathy [...] over the next 1-3 days. HCP: DaughterDennise. [phone] * Kayleigh Laguna RD - 07/18/2024 4:24 [...] onward) Start Ordered 07/17/24 1206 Adult diet [facility]; Cardiac, Diabetic; 60 gm carb/Meal; Cardiac Diet effective now Question Answer Comment Location [facility] Diet Type (req) Cardiac Diet Type (req) Diabetic Diabetic 60 gm carb/Meal Diet Type (cardiac) Cardiac 07/17/24 1205 07/11/24 1133 Dietary nutrition supplements Two times daily (BID); [facility]; Diabetic Supplement Continuous Question Answer Comment Frequency Two times daily (BID) Location [facility] Supplements Diabetic Supplement 07/11/24 1132 [...] at home. No noted food allergies. Appetite SECURITY REPRESENTATIVE: Poor Intake SECURITY REPRESENTATIVE: Decreased Weight History: Wt Readings from Last [...] or fat depletion Skin: Skin intact per nurse practical Nutrition Diagnosis: Code Type: None Identified Status: [...] 1345 Type of Visit: Initial Visit and Shop Tech Rounding Reason for Visit: Spiritual/Emotional Support and Spiritual Assessment Time Spent: 25 Minutes Location: [address] [place] [address] Sacramental Encounters: Spiritual Distress Assessment: Spiritual Distress [...] and missed her two cats. Pt reportedbeing Gnosticist while also reporting that she did not pray often. Shop Tech's suggestion to pray that evening was received [...] usually? Transcendence Do you have a particular confucianist, jimena, or spirituality? Is your confucianist/spirituality/jimena challenged by what is happening to you [...] 11/29/2014 DX:Decreased vision Diabetes mellitus, type 2 ([facility]/HCC) 02/14/2014 DX:Diabetes mellitus, type 2 ([facility]) Family history of early CAD 03/01/2014 [...] Guido MD - 07/17/2024 9:05 AM EST [place] Krysta Contreras 07/08/2024 1945 79 y.o. [id number] Kwesi Guido, * INTERVAL HISTORY: No events [...] Signed Date: 07/16/2024 12:33 ET Workstation ID: [id number] Transcribed By: Self Edit Transcribed Date: 07/16/2024 [...] - pending clinical improvement HCP -Daughter Dennise [phone], she was updated at bedside today. 45 minutes were spent in patient care including akhw-bo-jkuh time, chart review, discussion with providers, documentation, work order sorting clerk. High complexity medical decision making. Health Care proxy with Phone number: Paul Contreras Jr (Son) Disclaimer: Speech recognition software was utilized to dictate portions of this document. Errors in industrial accountant may be present. Please call / cortext [...] EST Ana Contreras 07/08/2024 1945 79 y.o. [id number] Kwesi Guido, * INTERVAL HISTORY: No events [...] Signed Date: 07/16/2024 12:33 ET Workstation ID: [id number] Transcribed By: Self Edit Transcribed Date: 07/16/2024 [...] - pending clinical improvement HCP -Daughter Dennise [phone], she was updated at bedside today. 60 minutes were spent in patient care including ylam-cj-qovk time, chart review, discussion with providers, documentation, work order sorting clerk. High complexity medical decision making. Health Care proxy with Phone number: Disclaimer: Speech recognition software was utilized to dictate portions of this document. Errors in industrial accountant may be present. Please call / cortext [...] 11/29/2014 DX:Decreased vision Diabetes mellitus, type 2 ([facility]/H[facility]) 02/14/2014 DX:Diabetes mellitus, type 2 ([facility]) Family history of early CAD 03/01/2014 [...] 11/29/2014 DX:Decreased vision Diabetes mellitus, type 2 ([facility]/H[facility]) 02/14/2014 DX:Diabetes mellitus, type 2 ([facility]) Family history of early CAD 03/01/2014 [...] Ana Chaparro Contreras 07/08/2024 1945 79 y.o. [id number] Kwesi Guido, * INTERVAL HISTORY: No events [...] - pending clinical improvement HCP -Dr. Bowden [phone], she was updated at bedside today. Health Care proxy with Phone number: Disclaimer: Speech recognition software was utilized to dictate portions of this document. Errors in industrial accountant may be present. Please call / cortext [...] Isidra Florence - 07/14/2024 2:14 PM EST [facility] Physical Therapy Evaluation & Treatment PT Discharge Recommendations: long-term facility placement Staff Recommendations for safe patient [...] is a 79 y.o. female admitted to [facility] on 07/08/2024. Patient Active Problem List Diagnosis Hypertension Hyperlipidemia History of cancer of unknown primary site CKD (chronic kidney disease) stage 4, GFR 15-29 ml/min ([facility]) Iron deficiency anemia Impaired renal function Type 2 diabetes mellitus without complication, without long-term current use of insulin ([facility]) Lung mass Acute encephalopathy Past Medical [...] Shower/Tub: Tub/shower unit Prior Function Level of Peach: Independent with mobility and functional transfers Ambulation [...] 1 time per day PT Discharge Recommendations long-term facility placement Equipment Recommended walker PT - [...] is a 79 y.o. female admitted to [facility] on 07/08/2024 for Hyponatremia [E87.1] Acute [...] deficits listedabove and optimize function. PT recommends long-term facility placement when medically stablefor safe discharge [...] 11/29/2014 DX:Decreased vision Diabetes mellitus, type 2 ([facility]) 02/14/2014 DX:Diabetes mellitus, type 2 ([facility]) Family history of early CAD 03/01/2014 [...] EST Ana Contreras 07/08/2024 1945 79 y.o. [id number] Kwesi Guido, * INTERVAL HISTORY: No events [...] performed without IV contrast. DLP: 613.10 mGy/cm Simplesurance VCT Iterative reconstruction technique Findings: Respiratory motion [...] Small bilateral pleural effusions, new. Telerad RYLEY ([id number]) -------- FINAL REPORT -------- Dictated By: Edilia Durbin Dictated Date: 07/12/2024 13:07 ET Assigned Physician: Edilia Durbin Reviewed and Electronically Signed By: Edilia Durbin Signed Date: 07/12/2024 13:19 ET Workstation ID: [id number] Transcribed By: Self Edit Transcribed Date: 07/12/2024 [...] - pending clinical improvement HCP -Dr. Bowden [phone], she was updated at bedside today. Health Care proxy with Phone number: Disclaimer: Speech recognition software was utilized to dictate portions of this document. Errors in industrial accountant may be present. Please call / cortext [...] comfortably with family at the bedside. Call chvaarria within reach * Akua Hall RN - [...] 11/29/2014 DX:Decreased vision Diabetes mellitus, type 2 ([facility]) 02/14/2014 DX:Diabetes mellitus, type 2 ([facility]) Family history of early CAD 03/01/2014 [...] -Review of spot urine for electrolytes protein rohzzccjaw-xbcdni-FR Q Erin is not clearly pointing towards significant prerenal [...] No indication today They agree to have RV TECHNICIAN if she needs it Discussed with the medical team in detail about the patient Chencho Wayne MD * Kwesi Guido MD - 07/13/2024 10:44 AM EST [place] A Ben 07/08/2024 1945 79 y.o. [id number] Kwesi Guido, * INTERVAL HISTORY: No events [...] days Lab Units 07/13/24 0638 07/12/24 0607/11/24 0621 07/10/24 0516 WBC AUTO K/mcL 20.6* [...] Dispo - pending clinical improvement HCP -Dr. Bowdne [phone], she was updated at bedside today. Health Care proxy with Phone number: Disclaimer: Speech recognition software was utilized to dictate portions of this document. Errors in industrial accountant may be present. Please call / cortext [...] Dietary nutrition supplements Two times daily (BID); [facility]; Diabetic Supplement Continuous Question Answer Comment Frequency Two times daily (BID) Location [facility] Supplements Diabetic Supplement 07/11/24 1132 07/11/24 1133 Adult diet [facility]; Cardiac, Diabetic; 75 gm carb/Meal; No Added Salt Diet effective now Question Answer Comment Location [facility] Diet Type (req) Cardiac Diet [...] at home. No noted food allergies. Appetite SECURITY REPRESENTATIVE: Poor Intake SECURITY REPRESENTATIVE: Stable Weight History: Wt Readings from Last [...] or fat depletion Skin: Skin intact per nurse practical Nutrition Diagnosis: Code Type: None Identified Status: [...] Guido MD - 07/12/2024 11:47 PM EST [facility] Provider Response Note PATIENT: ANA CONTRERAS : 1945 ADMIT DATE: 07/08/2024 2:44 PM DISCH DATE: RESPONDING PROVIDER #: [id number] PROVIDER RESPONSE TEXT: The patient has metabolic encephalopathy. QUERY TEXT: Encephalopathy is documented in the medical record. Please specify the type. H&P 07/08/2024 (3) Patient will be transferred to the care of [place] staff for further management of their acute [...] Ana Chaparro Contreras 07/08/2024 1945 79 y.o. [id number] Kwesi Guido, * INTERVAL HISTORY: No events [...] from last 7 days Lab Units 07/12/24 0607/11/2462007/10/24 0516 07/09/24 06 WBC AUTO K/mcL 21.8* [...] Signed Date: 07/10/2024 14:08 ET Workstation ID: [id number] Transcribed By: Self Edit Transcribed Date: 07/10/2024 [...] lactated Ringer's, Last Rate: 100 mL/hr (07/12/24 0380) ASSESSMENT/PLAN: Mrs. Contreras is a 79 y.o. [...] - pending clinical improvement HCP -Dr. Bowden [phone], she was updated at bedside today. Health Care proxy with Phone number: Disclaimer: Speech recognition software was utilized to dictate portions of this document. Errors in industrial accountant may be present. Please call / cortext [...] MD - 07/11/2024 5:44 PM EST Ana A Contreras 07/08/2024 1945 79 y.o. [id number] Kwesi Guido, * INTERVAL HISTORY: No events [...] Units 07/11/24 0621 07/10/24 0516 07/09/24 0625 01/10/202907/08/24 1110 WBC AUTO K/mcL 18.4* 16.9* 18.4* [...] Units 07/11/24 0621 07/10/24 0516 07/09/24 0625 07/08/24202907/08/24175107/08/24 1110 SODIUM mmol/L 130* 133 131* 130* [...] Signed Date: 07/10/2024 14:08 ET Workstation ID: [id number] Transcribed By: Self Edit Transcribed Date: 07/10/2024 [...] - pending clinical improvement HCP -Dr. Bowden [phone] Her son Paul was updated at bedside with her permission Health Care proxy with Phone number: Disclaimer: Speech recognition software was utilized to dictate portions of this document. Errors in industrial accountant may be present. Please call / cortext me if any questions. Portions of this note such ROS, Exam, Assessment and Plan were copy pasted from previous notes. Information was reviewed and changes were made accordingly. I agree with above mentioned information * Kwesi Guido MD - 07/11/2024 5:44 PM EST [facility] Provider Response Note PATIENT: ANA CONTRERAS : 1945 ADMIT DATE: 07/08/2024 2:44 PM DISCH DATE: RESPONDING PROVIDER #: [id number] PROVIDER RESPONSE TEXT: The patient has traumatic [...] Elmore, OT - 07/11/2024 8:34 AM EST [facility] Occupational Therapy Evaluation DATE: Thursday July 11, 2024 TIME IN: 0730 TIME OUT: 0820 Pt: Ana Contreras ROOM: 561/561-2 Discharge Recommendation: long-term facility Equipment Recommendation: walker Staff recommendations for [...] is a 79 y.o. female admitted to [facility] on 07/08/2024. Occupational Therapy evaluation and treatment ordered to assess ADL independence, safety, and functional mobility for discharge planning. Patient Active Problem List Diagnosis Hypertension Hyperlipidemia History of cancer of unknown primary site CKD (chronic kidney disease) stage 4, GFR 15-29 ml/min ([facility]) Iron deficiency anemia Impaired renal function Type 2 diabetes mellitus without complication, without long-term current use of insulin ([facility]) Lung mass Acute encephalopathy Past Medical History: Diagnosis Date Anemia Arthritis Blindness Decreased vision 11/29/2014 DX:Decreased vision Diabetes mellitus, type 2 ([facility]) 02/14/2014 DX:Diabetes mellitus, type 2 ([facility]) Family history of early CAD 03/01/2014 [...] - Evaluation Status: Complete OT Discharge Recommendations: long-term facility placement, Home OT Equipment Recommended: Walker-standard, [...] Goldman PT - 07/10/2024 2:37 PM EST [facility] Physical Therapy Evaluation & Treatment PT Discharge Recommendations: long-term facility placement Staff Recommendations for safe patient [...] is a 79 y.o. female admitted to [facility] on 07/08/2024. Patient Active Problem List Diagnosis Hypertension Hyperlipidemia History of cancer of unknown primary site CKD (chronic kidney disease) stage 4, GFR 15-29 ml/min ([facility]) Iron deficiency anemia Impaired renal function Type 2 diabetes mellitus without complication, without long-term current use of insulin ([facility]) Lung mass Acute encephalopathy Past Medical History: Diagnosis Date Anemia Arthritis Blindness Decreased vision 11/29/2014 DX:Decreased vision Diabetes mellitus, type 2 ([facility]) 02/14/2014 DX:Diabetes mellitus, type 2 ([facility]) Family history of early CAD 03/01/2014 [...] of Steps: 3 Prior Function Level of Peach: Independent with mobility and functional transfers Ambulation [...] of Steps 3 Prior Function Level of [place] Independent with mobility and functional transfers Ambulation [...] 1 time per day PT Discharge Recommendations long-term facility placement PT - Evaluation Status Complete [...] is a 79 y.o. female admitted to [facility] on 07/08/2024 for Hyponatremia [E87.1] Acute [...] listed above and optimize function. PT recommends long-term facility placement when medically stable for safe [...] a 79 y.o. female : 1945 MR#: [id number] SUBJECTIVE CC: Here with fall, RENE, hyponatremia [...] Signed Date: 07/09/2024 09:03 ET Workstation ID: [id number] Transcribed By: Self Edit Transcribed Date: 07/09/2024 [...] - pending clinical improvement HCP -Dr. Bowden [phone] -I met with her at the bedside on 07/09/24 and reviewed the plan. * Tarsha Corea RN - 07/09/2024 10:22 AM EST 07/09/24 1021 Initial Transition Plan Initial Transition Plan Snf Facility Back up Transition Plan Back up Transition plan Home Health Care Discharge Planning Living Arrangements Alone Type of Residence Private residence Assistive Devices Walker;Cane;Eyeglasses;Dentures upper Support Systems Extended family;Children Anticipated Discharge Needs Home Health RN;PT;OT Discipline following for SNF placement Meter Shop Supervisor ICC confirmed demographics fern Bowden, daughter. Barriers: Legally blind, s/p found down, rene, rhabdo, anemia w transfusion, IVF, trend labs, PT, elevated glucose Dispo: VNA and STR referrals initiated per Pt Choice. Pt lives alone w family support. Interested in community resources, SW consulted * Maria Alejandra Melendez MD - 07/09/2024 8:29 AM EST Images from the original note were not included. [facility] PROGRESS NOTE Date: 07/09/2024 Author: Maria Alejandra Melendez MD Patient ID: Ana Contreras is a 79 y.o. female : 1945 MR#: [id number] SUBJECTIVE CC: Here with fall, RENE, hyponatremia [...] Dictated Date: 07/08/2024 14:06 ET Assigned Physician: Henriqeu Bray Reviewed and Electronically Signed By: Henrique Bray Signed Date: 07/08/2024 14:07 ET Workstation ID: [id number] Transcribed By: Self Edit Transcribed Date: 07/08/2024 [...] Signed Date: 07/08/2024 12:27 ET Workstation ID: [id number] Transcribed By: Self Edit Transcribed Date: 07/08/2024 [...] Signed Date: 07/08/2024 12:23 ET Workstation ID: [id number] Transcribed By: Self Edit Transcribed Date: 07/08/2024 [...] Dispo -pending clinical improvement HCP -Dr. Bowden [phone] -I met with her at the bedside [...] infectious concerns): [] Yes / [x] No Air Conditioning Specialist: [] Yes / [x] No If YES, Cardiac Rhythm: [] NSR, [] SB, [] ST, [] A-FIB, [] A-Flutter, [] Pacemaker, [] 1st Degree HB, [] 2nd Degree HB, [] 3rd Degree HB Reason for Air Conditioning Specialist: VS: Visit Vitals BP (!) 148/62 (BP [...] and [place]: [place] [phone] * Michelle Christie RN - 07/08/2024 3:51 PM EST 07/08/24 2781 Initial Transition Plan Initial Transition Plan Snf Facility Back up Transition Plan Back up Transition plan Home Health Care Discharge Planning Contact (Name, Phone #, Relationship) for DC Planning Dennise Nj daughter [phone] Living Arrangements Alone Type of Residence Private residence (apartment with 6 steps to enter/no elevator) Assistive Devices Walker;Cane Support Systems Children;Extended family Medication Coverage Has Med Coverage Under Insurance Plan Yes Anticipated Discharge Needs Home Health PT;RN Discipline following for SNF placement Meter Shop Supervisor Patient lives alone in a first [...] wide VNA and STR including: [facility] and placed in Epic. HCP completed and [...] - 07/08/2024 10:32 AM EST Pt to [facility] via [facility]. Unwitnessed mechanical fall this am. Tripped over clutter in room. Unsure down time. C/o r.hip/shoulder pain. -hs. -thinners. +lower back pain. Pt denies further complaints. Bg 397has not taken meds this am. * RYLEY Rowe - 07/08/2024 10:25 AM EST Emergency Medicine Note Patient Name: Aan Contreras Initial Evaluation: 07/08/2024 : 1945 Patient's [...] REFLEX MICROSCOPIC AND CULTURE - Abnormal Specific Byron Urine 1.020 pH, Urine 5.5 Leukocytes, Urine [...] Procedure Abnormality Status --------- ------ CBC auto differential[[id number]] Abnormal Final result Please view results for these tests on the individual orders. TROPONIN I HIGH SENSITIVITY URINALYSIS WITH REFLEX MICROSCOPIC AND CULTURE Narrative: The following orders were created for panel order Urinalysis with reflex microscopic and culture. Procedure Abnormality Status --------- ------ Urinalysis with reflex ...[[id number]] Abnormal Final result Robertson urine culture tube[[id number]] In process Please view results for these [...] Signed Date: 07/08/2024 12:27 ET Workstation ID: [id number] Transcribed By: Self Edit Transcribed Date: 07/08/2024 12:[address] Head wo Contrast Final Result NO ACUTE INTRACRANIAL ABNORMALITY. -------- FINAL REPORT -------- Dictated By: GLENNA SOLITARIO Dictated Date: 07/08/2024 12:22 ET Assigned Physician: GLENNA SOLITARIO Reviewed and Electronically Signed By: GLENNA SOLITARIO Signed Date: 07/08/2024 12:23 ET Workstation ID: [id number] Transcribed By: Self Edit Transcribed Date: 07/08/2024 [...] 08/05/2024 10:58 AM EST Plan for [facility] EBUS. Source Note - RYLEY Harris - 07/13/2024 10:28 AM EST Patient currently admitted to [facility] for RENE and anemia. Possible need for HD. Will cancel her lance bronch/EBUS scheduled 07/14/24 and reschedule in the next couple weeks. * RYLEY Rivas - 07/08/2024 3:39 PM EST Images from the original note were not included. SONYA HISTORY AND PHYSICAL Please contact author [RYLEY Rivas] via Skataz/DBVu. Patient: Ana Contreras Admission Date/Time: 07/08/2024 10:31 [...] was found down on the ground by [facility]. She was unsure the details of [...] will be transferred to the care of [place] staff for further management of their acute [...] Signed Date: 07/08/2024 14:07 ET Workstation ID: [id number] Transcribed By: Self Edit Transcribed Date: 07/08/2024 14:[address] Cervical Spine wo Contrast Final Result No acute cervical spine fracture. -------- FINAL REPORT -------- Dictated By: GLENNA SOLITARIO Dictated Date: 07/08/2024 12:24 ET Assigned Physician: GLENNA SOLITARIO Reviewed and Electronically Signed By: GLENNA SOLITARIO Signed Date: 07/08/2024 12:27 ET Workstation ID: [id number] Transcribed By: Self Edit Transcribed Date: 07/08/2024 12:[address] Head wo Contrast Final Result NO ACUTE INTRACRANIAL ABNORMALITY. -------- FINAL REPORT -------- Dictated By: GLENNA SOLITARIO Dictated Date: 07/08/2024 12:22 ET Assigned Physician: GLENNA SOLITARIO Reviewed and Electronically Signed By: GLENNA SOLITARIO Signed Date: 07/08/2024 12:23 ET Workstation ID: [id number] Transcribed By: Self Edit Transcribed Date: 07/08/2024 [...] onward) Start Ordered 07/08/24 1438 Adult diet [facility]; General; Regular Diet effective now Question Answer Comment Location [facility] Diet Type (req) General General Diet Regular 07/08/24 1444 [x] Lines, tubes, drains: IV access [x] Medication reconciliation Health Care proxy with Phone number Dennise Nj daughter [phone] Cosigned by Wayne Donahue MD at 07/15/2024 [...] plan as outlined in the note below. Wyane Donahue MD 07/15/24 10:06 AM EST documented [...] L4, and 11R. Surgeon: Cecily Montez MD Powderer: None Specimens: Above for pathology/cytology/microbiology Anesthesia: General [...] Insertion of 18g/10cm Bard Powerglide midline Lot: [id number] Exp: 2025-05-28 Indications: Difficult draw with frequent [...] Fela Palomo MD Staff Role Emilie Silva Farmhand Dorothea Garay Farmhand Lay Roth Farmhand Diaz Denise RN CV Invasive Nurse Fela [...] onward) Start Ordered 07/08/24 1438 Adult diet [facility]; General; Regular Diet effective now Question Answer Comment Location [facility] Diet Type (req) General General Diet Regular 07/08/24 2934 History of presenting illness: Patient is a 79 y.o. female with a history of Past Medical History: Diagnosis Date Anemia Arthritis Blindness Decreased vision 11/29/2014 DX:Decreased vision Diabetes mellitus, type 2 ([facility]) 02/14/2014 DX:Diabetes mellitus, type 2 (HCC) Family [...] at home. No noted food allergies. Appetite SECURITY REPRESENTATIVE: Poor Intake SECURITY REPRESENTATIVE: Decreased Weight History: Wt Readings from Last [...] stable between 168-178 lb over past year ([id number] lb). 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 [employer] for [employer] Family History Problem Relation Name Age of [...] should gradually improve, can get input from recreational therapy aide, please call me for an y question documented in this encounter Plan of Treatment Upcoming Encounters Date Type Department Care Team ([facility] Contact Info) Description 09/05/2024 10:00 AM EDT Office Visit Endocrinology - [place] [address] [place] [address] Kathy Michelle PA [address] [place] [address] 09/06/2024 11:00 AM EDT Ancillary Procedure [facility] - [facility] [address] [facility] [address] [place] [address] 10/06/2024 1:15 PM EDT Office Visit Internal Medicine - [facility] [address] [place] [address] Eloisa Vázquez, [address] [place] [address] 11/14/2024 11:30 AM EDT Appointment [facility] CT Scan [address] [place] [id number] 12/01/2024 10:00 AM EDT Office Visit Thoracic Surgery - [place] [address] [facility] [address] [place] [phone] Cecily Montez MD [address] [address] Pending Results Name Type Priority Associated Diagnoses [...] PM EST POCT GLUCOSE BLOOD Routine 07/28/2024 4 :54 PM EST HEPATITIS B CORE ANTIBODY IGM [...] 6:19 AM EST HEPATIC FUNCTION PANEL Add-On 5 6:19 AM EST BASIC METABOLIC PANEL Routine [...] - 100 mg/dL 08/06/2024 11:09 AM EST [facility] Blood Capillary blood specimen / Unknown 08/06/2024 11:07 AM EST 08/06/2024 11:10 AM EST us Steve Cruz MD LAB POINT OF CA RE TEST DOCKED DEVICE UNSOLICITED RESULTS Final Result Performing Organization Address [facility]/ZIP Co de Phone Number [facility] [address] [place] [address], [place] [phone] * (ABNORMAL) POCT Glucose, blood (08/06/2024 7:26 AM EST) Glucose POCT 66(L) 70 - 100 mg/dL 08/06/2024 7:27 AM EST [facility] Blood Capillary blood specimen / Unknown 08/06/2024 7:26 AM EST 08/06/2024 7:28 AM EST us Steve Cruz MD LAB POINT OF CA RE TEST DOCKED DEVICE UNSOLICITED RESULTS Final Result Performing Organization Address City/[facility]/ZIP Co de Phone Number [facility] [address] [place] [address], [place] [phone] * (ABNORMAL) POCT Glucose, blood (08/05/2024 8:08 PM EST) Glucose POCT 263(H) 70 - 100 mg/dL 08/05/2024 8:08 PM EST [facility] Blood Capillary blood specimen / Unknown 08/05/2024 8:08 PM EST 08/05/2024 8:09 PM EST us Steve Cruz MD LAB POINT OF CA RE TEST DOCKED DEVICE UNSOLICITED RESULTS Final Result Performing Organization Address City/[facility]/ZIP Co de Phone Number [facility] [address] [place] [address], [place] [phone] * (ABNORMAL) POCT Glucose, blood (08/05/2024 4:40 PM EST) Glucose POCT 270(H) 70 - 100 mg/dL 08/05/2024 4:42 PM EST [facility] Blood Capillary blood specimen / Unknown 08/05/2024 4:40 PM EST 08/05/2024 4:43 PM EST Steve Cruz MD LAB POINT OF CA RE TEST DOCKED DEVICE UNSOLICITED RESULTS Final Result [facility] [address] [place] [address], [place] [phone] * XR Chest 1 View (08/05/2024 1:43 [...] Signed Date: 08/05/2024 13:49 ET Workstation ID: [id number] Transcribed By: Self Edit Transcribed Date: 08/05/2024 13:46 ET Narrative 08/05/2024 1:49 PM EST XR CHEST 1 VIEW INDICATION: Lung biopsy TECHNIQUE: XR CHEST 1 VIEW COMPARISON: No priors available. Procedure Note Truong Rne MD - 08/05/2024 XR CHEST 1 VIEW [...] Signed Date: 08/05/2024 13:49 ET Workstation ID: [id number] Transcribed By: Self Edit Transcribed Date: 08/05/2024 13:46 ET us Cecily Montez MD IMG XR PROCEDURES Final Result * (ABNORMAL) POCT Glucose, blood (08/05/2024 1:40 PM EST) Glucose POCT 148(H) 70 - 100 mg/dL 08/05/2024 1:41 PM EST [facility] Blood Capillary blood specimen / Unknown 08/05/2024 1:40 PM EST 08/05/2024 1:42 PM EST us Steve Cruz MD LAB POINT OF CA RE TEST DOCKED DEVICE UNSOLICITED RESULTS Final Result Performing Organization Address City/[facility]/ZIP Co de Phone Number [facility] [address] [place] [address], [place] [phone] * Concentration (08/05/2024 12:32 PM EST) [facility] AF[employer] Concentration Performed 3:05 PM EST [facility] Structure of upper lobe of right lung / Unknown 08/05/2024 12:32 PM EST 08/05/2024 1:17 PM EST Narrative [facility] - 08/06/2024 3:05 PM EST Performed at: ??01 - [facility] [address] ??[id number] Physical Security Manager: Diane Belle MD, Phone: ??[phone] us Cecily Montez MD LAB BLOOD ORDERABLES Final Resul t [facility] * Acid fast bacilli stain (08/05/2024 12:32 PM EST) AFB Stain Result No Acid fast bacilli seen on direct smear (Fuchsin method, 1000x) No Acid Fast Bacilli seen on direct smear 08/05/2024 2:18 PM EST [facility] Wash Structure of upper lobe of right lung / Unknown 08/05/2024 12:32 PM EST 08/05/2024 1:17 PM EST us Cecily Montez MD LAB MICROBIOLOGY - GENERAL ORDER SYLVAIN Final Result Performing Organization Address [facility] de Phone Number [facility] [address] [place] [address], [place] [phone] * Culture bronchial with gram stain (08/05/2024 12:32 PM EST) Bronchial Culture No growth at 3 days 08/08/2024 9:42 AM EST [facility] Gram Stain Result No polymorphonuclear leukocytes, No epithelial cells, and No organisms noted 08/08/2024 9:42 AM EST [facility] Wash Structure of upper lobe of right lung / Unknown 08/05/2024 12:32 PM EST 08/05/2024 1:17 PM EST us Cecily Montez MD LAB MICROBIOLOGY - GENERAL ORDER SYLVAIN Final Result Performing Organization Address [facility] de Phone Number [facility] [address] [place] [address], [place] [phone] * XR Chest 1 View (08/05/2024 12:29 [...] Signed Date: 08/08/2024 07:52 ET Workstation ID: [id number] Transcribed By: Self Edit Transcribed Date: 08/08/2024 [...] Signed Date: 08/08/2024 07:52 ET Workstation ID: [id number] Transcribed By: Self Edit Transcribed Date: 08/08/2024 [...] lymph node elements present. 08/09/2024 1:04 PM [facility] Specimen A Adequacy Satisfactory for evaluation 08/09/2024 1:04 PM [facility] Specimen B Adequacy Satisfactory for evaluation 08/09/2024 1:04 PM [facility] Specimen C Adequacy Satisfactory for evaluation 08/09/2024 1:04 PM [facility] Specimen D Adequacy Satisfactory for evaluation 08/09/2024 1:04 PM [facility] Specimen E Adequacy Specimen processed and examined, but unsatisfactory for eval of abnormal epithelial 08/09/2024 1:04 PM [facility] Specimen F Adequacy Satisfactory for evaluation 08/09/2024 1:04 PM [facility] Gross Description A. Lung, [...] time 54 hours. 08/09/2024 1:04 PM EST [facility] Disclaimer Unless otherwise specified, all tissue is 10% NB formalin fixed and paraffin embedded. Technical cytopathology services provided by [facility], at [address] [place] [address] (CLIA # [id number]/Gladys Prince MD, Repairer [employer].) 08/09/2024 1:04 PM EST [facility] Brushing, function (observable entity) Structure [...] MD LAB CYTOLOGY ORDERABLES Final Re sult [facility]) [facility] [address] [place] [address], * (ABNORMAL) Basic metabolic panel (08/05/2024 7:04 AM EST) Sodium 133 133 - 145 mmol/L LAB CHEMISTRY METHOD 08/05/2024 8:01 AM [facility] Potassium 4.5 3.5 - 5.5 mmol/L LAB CHEMISTRY METHOD 08/05/2024 8:01 AM [facility] Chloride 96 96 - 110 mmol/L LAB CHEMISTRY METHOD 08/05/2024 8:01 AM [facility] CO2 32 21 - 32 mmol/L LAB CHEMISTRY METHOD 08/05/2024 8:01 AM [facility] Anion Gap 5 3 - 11 LAB CHEMISTRY METHOD 08/05/2024 8:01 AM [facility] Glucose 138(H) 70 - 100 mg/dL LAB CHEMISTRY METHOD 08/05/2024 8:01 AM [facility] BUN 53(H) 5 - 25 mg/dL LAB CHEMISTRY METHOD 08/05/2024 8:01 AM [facility] Creatinine 3.91(H) 0.50 - 1.10 mg/dL LAB CHEMISTRY METHOD 08/05/2024 8:01 AM [facility] eGFR 11(L) >=60 mL/min/1. 73m2 LAB CHEMISTRY METHOD 08/05/2024 8:01 AM [facility] Comment:Calculation based on the??Chronic Kidney Disease Epidemiology Collaboration (CKD-EPI) equation refit??without adjustment for race. BUN/Creatinine Ratio 13.6 LAB CHEMISTRY METHOD 08/05/2024 8:01 AM [facility] Calcium 8.4(L) 8.5 - 10.5 mg/dL LAB CHEMISTRY METHOD 08/05/2024 8:01 AM [facility] Blood Venous blood specimen / Unknown Venipuncture / Unknown 08/05/2024 7:04 AM EST 08/05/2024 7:34 AM EST Steve Cruz MD LAB BLOOD ORDERABLES Fi nal Result [facility] [address] [place] [address], * (ABNORMAL) CBC - Every 3 Days (08/05/2024 7:03 AM EST) WBC 8.8 4.8 - 10.8 K/mcL LAB HEMETOLOGY METHOD 08/05/2024 7:42 AM EST [facility] RBC 2.90(L) 3.80 - 4.80 M/mcL LAB HEMETOLOGY METHOD 08/05/2024 7:42 AM [facility] Hemoglobin 7.9(L) 11.5 - 16.0 g/dL LAB HEMETOLOGY METHOD 08/05/2024 7:42 AM [facility] Hematocrit 25.5(L) 35.0 - 47.0 % LAB HEMETOLOGY METHOD 08/05/2024 7:42 AM [facility] MCV 87.6 79.0 - 98.0 FL LAB HEMETOLOGY METHOD 08/05/2024 7:42 AM [facility] MCH 27.1 27.0 - 32.0 pcg LAB HEMETOLOGY METHOD 08/05/2024 7:42 AM [facility] MCHC 31.0(L) 32.0 - 37.0 g/dL LAB HEMETOLOGY METHOD 08/05/2024 7:42 AM [facility] RDW 21.9(H) 11.0 - 15.0 % LAB HEMETOLOGY METHOD 08/05/2024 7:42 AM [facility] Platelets 180 130 - 400 K/mcL LAB HEMETOLOGY METHOD 08/05/2024 7:42 AM [facility] MPV 10.8 7.0 - 11.0 FL LAB HEMETOLOGY METHOD 08/05/2024 7:42 AM EST [facility] NRBC 0.0 <1.0 % LAB HEMETOLOGY METHOD 08/05/2024 7:42 AM EST [facility] NRBC Absolute 0.00 <0.10 K/mcL LAB HEMETOLOGY METHOD 08/05/2024 7:42 AM EST [facility] Blood Venous blood specimen / Unknown Venipuncture / Unknown 08/05/2024 7:03 AM EST 08/05/2024 7:34 AM EST Lencho Stuart MD LAB BLOOD ORDERABLES Final R esult [facility] [address] [place] [address], [place] [phone] * (ABNORMAL) POCT Glucose, blood (08/04/2024 8:39 PM EST) Glucose POCT 352(H) 70 - 100 mg/dL 08/04/2024 8:40 PM EST [facility] Blood Capillary blood specimen / Unknown 08/04/2024 8:39 PM EST 08/04/2024 8:41 PM EST Steve Cruz MD LAB POINT OF CA RE TEST DOCKED DEVICE UNSOLICITED RESULTS Final Result [facility] [address] [place] [address], [place] [phone] * (ABNORMAL) POCT Glucose, blood (08/04/2024 5:36 PM EST) Glucose POCT 376(H) 70 - 100 mg/dL 08/04/2024 5:37 PM EST [facility] Blood Capillary blood specimen / Unknown 08/04/2024 5:36 PM EST 08/04/2024 5:38 PM EST us Steve Cruz MD LAB POINT OF CA RE TEST DOCKED DEVICE UNSOLICITED RESULTS Final Result Performing Organization Address [facility]/ZIP Co de Phone Number [facility] [address] [place] [address], [place] [phone] * (ABNORMAL) POCT Glucose, blood (08/04/2024 11:05 AM EST) Glucose POCT 130(H) 70 - 100 mg/dL 08/04/2024 11:07 AM EST [facility] Blood Capillary blood specimen / Unknown 08/04/2024 11:05 AM EST 08/04/2024 11:08 AM EST us Steve Cruz MD LAB POINT OF CA RE TEST DOCKED DEVICE UNSOLICITED RESULTS Final Result Performing Organization Address City/[facility] Co de Phone Number [facility] [address] [place] [address], [place] [phone] * (ABNORMAL) POCT Glucose, blood (08/04/2024 8:03 AM EST) Glucose POCT 116(H) 70 - 100 mg/dL 08/04/2024 8:05 AM EST [facility] Blood Capillary blood specimen / Unknown 08/04/2024 8:03 AM EST 08/04/2024 8:07 AM EST us Steve Cruz MD LAB POINT OF CA RE TEST DOCKED DEVICE UNSOLICITED RESULTS Final Result Performing Organization Address City/[facility]/ZIP Co de Phone Number [facility] [address] [place] [address], [place] [phone] * (ABNORMAL) Creatinine, Serum - Every 7 Days (08/04/2024 6:31 AM EST) Creatinine 2.49(H) 0.50 - 1.10 mg/dL LAB CHEMISTRY METHOD 08/04/2024 7:31 AM EST [facility] eGFR 19(L) >=60 mL/min/1. 73m2 LAB CHEMISTRY METHOD 08/04/2024 7:31 AM EST [facility] Comment:Calculation based on the??Chronic Kidney Disease Epidemiology Collaboration (CKD-EPI) equation refit??without adjustment for race. Blood Venous blood specimen / Unknown Venipuncture / Unknown 08/04/2024 6:31 AM EST 08/04/2024 6:54 AM EST Jonny Mathur MD LAB BLOOD ORDERABLES Final Re sult Performing Organization Address City/[facility]/ZIP Co de Phone Number [facility] [address] [place] [address], * (ABNORMAL) POCT Glucose, blood (08/03/2024 9:59 PM EST) Glucose POCT 135(H) 70 - 100 mg/dL 08/03/2024 9:59 PM EST [facility] Blood Capillary blood specimen / Unknown 08/03/2024 9:59 PM EST 08/03/2024 10:00 PM EST Steve Cruz MD LAB POINT OF CA RE TEST DOCKED DEVICE UNSOLICITED RESULTS Final Result Performing Organization Address City/[facility]/ZIP Co de Phone Number [facility] [address] [place] [address], [place] [phone] * (ABNORMAL) POCT Glucose, blood (08/03/2024 3:47 PM EST) Glucose POCT 304(H) 70 - 100 mg/dL 08/03/2024 3:48 PM EST [facility] Blood Capillary blood specimen / Unknown 08/03/2024 3:47 PM EST 08/03/2024 3:49 PM EST us Steve Cruz MD LAB POINT OF [place] RE TEST DOCKED DEVICE UNSOLICITED RESULTS Final Result Performing Organization Address [facility] Co de Phone Number [facility] [address] [place], [place] [address], [place] [phone] * (ABNORMAL) POCT Glucose, blood (08/03/2024 12:35 PM EST) Glucose POCT 125(H) 70 - 100 mg/dL 08/03/2024 12:59 PM EST [facility] Blood Capillary blood specimen / Unknown 08/03/2024 12:35 PM EST 08/03/2024 1:00 PM EST us Steve Crzu MD LAB POINT OF [place] RE TEST DOCKED DEVICE UNSOLICITED RESULTS Final Result Performing Organization Address [facility] de Phone Number [facility] [address] [place] [address], [place] [phone] * Hepatitis B surface antigen with reflex to confirmation (08/03/2024 8:49 AM EST) Pathologist [facility] Hepatitis B Surface Ag Negative Negative LAB CHEMISTRY METHOD 08/03/2024 10:11 AM EST [facility] Blood Venous blood specimen / Unknown Venipuncture / Unknown 08/03/2024 8:49 AM EST 08/03/2024 9:22 AM EST Narrative [facility] - 08/03/2024 10:11 AM EST Over the counter supplements containing high doses of biotin may interfere with this assay. ??If interference is suspected, patients shoud be retested after refraining from biotin supplements for 72 hours. us Steve Cruz MD LAB BLOOD ORDERABLES Fi nal Result Performing Organization Address City/[facility]/ZIP Co de Phone Number [facility] [address] [place] [address], * Hepatitis B surface antibody quantitative (08/03/2024 8:49 AM EST) Pathologist [facility] Hepatitis B Surface Ab Negative Negative LAB CHEMISTRY METHOD 08/03/2024 9:59 AM EST [facility] Hepatitis B Surface Ab Quantitative <3.1 mIU/mL LAB CHEMISTRY METHOD 08/03/2024 9:59 AM [facility] Blood Venous blood specimen / Unknown Venipuncture / Unknown 08/03/2024 8:49 AM EST 08/03/2024 9:22 AM EST [facility] - 08/03/2024 9:59 AM EST >=10 mIU/mL is considered to be consistent with immunity. Steve Cruz MD LAB BLOOD ORDERABLES Fi nal Result Performing Organization Address [facility] Co de Phone Number [facility] [address] [place] [address], * (ABNORMAL) Complete blood count (08/03/2024 8:49 AM EST) [facility] WBC 8.5 4.8 - 10.8 K/mcL LAB HEMETOLOGY METHOD 08/03/2024 9:28 AM [facility] RBC 2.90(L) 3.80 - 4.80 M/[facility] LAB HEMETOLOGY METHOD 08/03/2024 9:28 AM [facility] Hemoglobin 7.7(L) 11.5 - 16.0 g/dL LAB HEMETOLOGY METHOD 08/03/2024 9:28 AM [facility] Hematocrit 24.6(L) 35.0 - 47.0 % LAB HEMETOLOGY METHOD 08/03/2024 9:28 AM [facility] MCV 84.2 79.0 - 98.0 FL LAB HEMETOLOGY METHOD 08/03/2024 9:28 AM EST [facility] MCH 26.4(L) 27.0 - 32.0 pcg LAB HEMETOLOGY METHOD 08/03/2024 9:28 AM [facility] MCHC 31.3(L) 32.0 - 37.0 g/dL LAB HEMETOLOGY METHOD 08/03/2024 9:28 AM EST [facility] RDW 21.8(H) 11.0 - 15.0 % LAB HEMETOLOGY METHOD 08/03/2024 9:28 AM [facility] Platelets 186 130 - 400 K/mcL LAB HEMETOLOGY METHOD 08/03/2024 9:28 AM [facility] MPV 10.5 7.0 - 11.0 FL LAB HEMETOLOGY METHOD 08/03/2024 9:28 AM EST [facility] NRBC 0.0 <1.0 % LAB HEMETOLOGY METHOD 08/03/2024 9:28 AM [facility] NRBC Absolute 0.00 <0.10 K/mcL LAB HEMETOLOGY METHOD 08/03/2024 9:28 AM [facility] Blood Venous blood specimen / Unknown Venipuncture / Unknown 08/03/2024 8:49 AM EST 08/03/2024 9:22 AM EST us Steve Cruz MD LAB BLOOD ORDERABLES Fi nal Result [facility] [address] [place] [address], * (ABNORMAL) CBC auto differential (08/03/2024 6:01 AM EST) WBC 7.5 4.8 - 10.8 K/mcL LAB HEMETOLOGY METHOD 08/03/2024 7:49 AM [facility] RBC 2.90(L) 3.80 - 4.80 M/[facility] LAB HEMETOLOGY METHOD 08/03/2024 7:49 AM [facility] Hemoglobin 7.8(L) 11.5 - 16.0 g/dL LAB HEMETOLOGY METHOD 08/03/2024 7:49 AM [facility] Hematocrit 24.7(L) 35.0 - 47.0 % LAB HEMETOLOGY METHOD 08/03/2024 7:49 AM [facility] MCV 85.8 79.0 - 98.0 FL LAB HEMETOLOGY METHOD 08/03/2024 7:49 AM [facility] MCH 27.1 27.0 - 32.0 pcg LAB HEMETOLOGY METHOD 08/03/2024 7:49 AM [facility] MCHC 31.6(L) 32.0 - 37.0 g/dL LAB HEMETOLOGY METHOD 08/03/2024 7:49 AM [facility] RDW 21.6(H) 11.0 - 15.0 % LAB HEMETOLOGY METHOD 08/03/2024 7:49 AM [facility] Platelets 188 130 - 400 K/mcL LAB HEMETOLOGY METHOD 08/03/2024 7:49 AM [facility] MPV 11.2(H) 7.0 - 11.0 FL LAB HEMETOLOGY METHOD 08/03/2024 7:49 AM [facility] NRBC 0.0 <1.0 % LAB HEMETOLOGY METHOD 08/03/2024 7:49 AM [facility] NRBC Absolute 0.00 <0.10 K/mcL LAB HEMETOLOGY METHOD 08/03/2024 7:49 AM [facility] Neutrophils Relative 77.2 % LAB HEMETOLOGY METHOD 08/03/2024 7:49 AM [facility] Lymphocytes Relative 12.8 % LAB HEMETOLOGY METHOD 08/03/2024 7:49 AM [facility] Monocytes Relative 8.0 % LAB HEMETOLOGY METHOD 08/03/2024 7:49 AM [facility] Eosinophils Relative 0.4 % LAB HEMETOLOGY METHOD 08/03/2024 7:49 AM [facility] Basophils Relative 0.1 % LAB HEMETOLOGY METHOD 08/03/2024 7:49 AM [facility] Immature Granulocytes Relative 1.5 % LAB HEMETOLOGY METHOD 08/03/2024 7:49 AM [facility] Neutrophils Absolute 5.78 1.50 - 7.00 K/mcL LAB HEMETOLOGY METHOD 08/03/2024 7:49 AM [facility] Lymphocytes Absolute 0.96(L) 1.00 - 5.00 K/mcL LAB HEMETOLOGY METHOD 08/03/2024 7:49 AM [facility] Monocytes Absolute 0.60 0.20 - 1.00 K/mcL LAB HEMETOLOGY METHOD 08/03/2024 7:49 AM [facility] Eosinophils Absolute 0.03 0.00 - 0.50 K/mcL LAB HEMETOLOGY METHOD 08/03/2024 7:49 AM [facility] Basophils Absolute 0.01 0.00 - 0.20 K/mcL LAB HEMETOLOGY METHOD 08/03/2024 7:49 AM [facility] Immature Granulocytes Absolute 0.11(H) 0.00 - 0.03 K/mcL LAB HEMETOLOGY METHOD 08/03/2024 7:49 AM [facility] Blood Venous blood specimen / Unknown Venipuncture / Unknown 08/03/2024 6:01 AM EST 08/03/2024 7:27 AM EST us Steve Cruz MD LAB BLOOD ORDERABLES Fi nal Result Performing Organization Address [facility] Co de Phone Number [facility] [address] [place] [address], [place] [phone] * Magnesium (08/03/2024 6:01 AM EST) Magnesium 2.1 1.9 - 2.6 mg/dL LAB CHEMISTRY METHOD 08/03/2024 8:11 AM EST [facility] Blood Venous blood specimen / Unknown Venipuncture / Unknown 08/03/2024 6:01 AM EST 08/03/2024 7:27 AM EST us Steve Cruz MD LAB BLOOD ORDERABLES Fi nal Result Performing Organization Address [facility] de Phone Number [facility] [address] [place] [address], [place] [phone] * Phosphorus (08/03/2024 6:01 AM EST) Pathologist [facility] Phosphorus 4.3 2.5 - 4.5 mg/dL LAB CHEMISTRY METHOD 08/03/2024 8:11 AM EST [facility] Blood Venous blood specimen / Unknown Venipuncture / Unknown 08/03/2024 6:01 AM EST 08/03/2024 7:27 AM EST Steve Cruz MD LAB BLOOD ORDERABLES Fi nal Result Performing Organization Address [facility] Co de Phone Number [facility] [address] [place] [address], [place] [phone] * (ABNORMAL) POCT Glucose, blood (08/02/2024 7:33 PM EST) Glucose POCT 241(H) 70 - 100 mg/dL 08/02/2024 7:34 PM EST [facility] Blood Capillary blood specimen / Unknown 08/02/2024 7:33 PM EST 08/02/2024 7:35 PM EST us Steve Cruz MD LAB POINT OF [place] RE TEST DOCKED DEVICE UNSOLICITED RESULTS Final Result [facility] [address] [place] [address], [place] [phone] * (ABNORMAL) POCT Glucose, blood (08/02/2024 4:27 PM EST) Glucose POCT 212(H) 70 - 100 mg/dL 08/02/2024 4:29 PM EST [facility] Blood Capillary blood specimen / Unknown 08/02/2024 4:27 PM EST 08/02/2024 4:29 PM EST us Steve Cruz MD LAB POINT OF [place] RE TEST DOCKED DEVICE UNSOLICITED RESULTS Final Result Performing Organization Address City/[facility]/ZIP Co de Phone Number [facility] [address] [place] [address], [place] [phone] * Type and screen (08/02/2024 3:04 PM EST) ABO Group O 08/02/2024 4:52 PM EST [facility] Rh Type Positive 08/02/2024 4:52 PM EST [facility] Antibody Screen Negative 08/02/2024 4:52 PM EST [facility] Blood Venous blood specimen / Unknown Venipuncture / Unknown 08/02/2024 3:04 PM EST 08/02/2024 4:07 PM EST us Steve Cruz MD LAB BLOOD BANK TEST ORD ERABLES Final Result [facility] [address] [place] [address], * Prepare RBC: 1 Units (08/02/2024 2:09 PM EST) Product Code [id number] 08/02/2024 6:27 PM EST [facility] Unit Number [id number] 08/02/19 6:27 PM EST [facility] Crossmatch Compatible 08/02/2024 5:03 PM EST [facility] Dispense Status Transfused 08/02/2024 6:27 PM EST [facility] Unit ABO Rh OPOS 08/02/2024 6:27 PM [facility] Unit Expiration Date Time [id number] 08/02/2024 6:27 PM [facility] Unit Blood Type 5100 08/02/2024 6:27 PM EST [facility] Blood Venous blood specimen / Unknown 08/02/2024 2:09 PM EST 08/02/2024 4:07 PM EST Steve Cruz MD BLOOD BANK PRODUCT ORDE RABLES Final Result Performing Organization Address [facility]/ZIP Co de Phone Number [facility] [address] [place] [address], * (ABNORMAL) POCT Glucose, blood (08/02/2024 11:26 AM EST) Glucose POCT 153(H) 70 - 100 mg/dL 08/02/2024 11:41 AM EST [facility] Blood Capillary blood specimen / Unknown 08/02/2024 11:26 AM EST 08/02/2024 11:43 AM EST Steve Cruz MD LAB POINT OF CA RE TEST DOCKED DEVICE UNSOLICITED RESULTS Final Result [facility] [address] [place] [address], [place] [phone] * POCT Glucose, blood (08/02/2024 7:46 AM EST) Glucose POCT 90 70 - 100 mg/dL 08/02/2024 7:46 AM [facility] Blood Capillary blood specimen / Unknown 08/02/2024 7:46 AM EST 08/02/2024 7:48 AM EST Steve Cruz MD LAB POINT OF CA RE TEST DOCKED DEVICE UNSOLICITED RESULTS Final Result Performing Organization Address City/[facility]/ZIP Co de Phone Number [facility] [address] [place] [address], [place] [phone] * (ABNORMAL) CBC - Every 3 Days (08/02/2024 6:06 AM EST) WBC 8.0 4.8 - 10.8 K/mcL LAB HEMETOLOGY METHOD 08/02/2024 7:45 AM [facility] RBC 2.70(L) 3.80 - 4.80 M/[facility] LAB HEMETOLOGY METHOD 08/02/2024 7:45 AM [facility] Hemoglobin 7.0(L) 11.5 - 16.0 g/dL LAB HEMETOLOGY METHOD 08/02/2024 7:45 AM [facility] Hematocrit 22.9(L) 35.0 - 47.0 % LAB HEMETOLOGY METHOD 08/02/2024 7:45 AM [facility] MCV 84.2 79.0 - 98.0 FL LAB HEMETOLOGY METHOD 08/02/2024 7:45 AM [facility] MCH 25.7(L) 27.0 - 32.0 pcg LAB HEMETOLOGY METHOD 08/02/2024 7:45 AM EST [facility] MCHC 30.6(L) 32.0 - 37.0 g/dL LAB HEMETOLOGY METHOD 08/02/2024 7:45 AM [facility] RDW 23.4(H) 11.0 - 15.0 % LAB HEMETOLOGY METHOD 08/02/2024 7:45 AM EST [facility] Platelets 205 130 - 400 K/mcL LAB HEMETOLOGY METHOD 08/02/2024 7:45 AM [facility] MPV 11.0 7.0 - 11.0 FL LAB HEMETOLOGY METHOD 08/02/2024 7:45 AM [facility] NRBC 0.0 <1.0 % LAB HEMETOLOGY METHOD 08/02/2024 7:45 AM [facility] NRBC Absolute 0.00 <0.10 K/mcL LAB HEMETOLOGY METHOD 08/02/2024 7:45 AM [facility] Blood Venous blood specimen / Unknown Venipuncture / Unknown 08/02/2024 6:06 AM EST 08/02/2024 7:23 AM EST Lencho Stuart MD LAB BLOOD ORDERABLES Final R esult [facility] [address] [place] [address], * (ABNORMAL) POCT Glucose, blood (08/01/2024 7:43 PM EST) Pathologist [facility] Glucose POCT 209(H) 70 - 100 mg/dL 08/01/2024 7:44 PM EST [facility] Blood Capillary blood specimen / Unknown 08/01/2024 7:43 PM EST 08/01/2024 7:44 PM EST us Steve Cruz MD LAB POINT OF CA RE TEST DOCKED DEVICE UNSOLICITED RESULTS Final Result Performing Organization Address [facility]/ZIP Co de Phone Number [facility] [address] [place] [address], [place] [phone] * (ABNORMAL) POCT Glucose, blood (08/01/2024 5:20 PM EST) Glucose POCT 168(H) 70 - 100 mg/dL 08/01/2024 5:21 PM EST [facility] Blood Capillary blood specimen / Unknown 08/01/2024 5:20 PM EST 08/01/2024 5:22 PM EST us Steve Cruz MD LAB POINT OF CA RE TEST DOCKED DEVICE UNSOLICITED RESULTS Final Result Performing Organization Address City/[facility] Co de Phone Number [facility] [address] [place] [address], [place] [phone] * (ABNORMAL) POCT Glucose, blood (08/01/2024 11:03 AM EST) Glucose POCT 149(H) 70 - 100 mg/dL 08/01/2024 11:03 AM EST [facility] Blood Capillary blood specimen / Unknown 08/01/2024 11:03 AM EST 08/01/2024 11:04 AM EST us Steve Cruz MD LAB POINT OF CA RE TEST DOCKED DEVICE UNSOLICITED RESULTS Final Result Performing Organization Address City/[facility]/ZIP Co de Phone Number [facility] [address] [place] [address], [place] [phone] * (ABNORMAL) POCT Glucose, blood (08/01/2024 8:59 AM EST) Glucose POCT 128(H) 70 - 100 mg/dL 08/01/2024 9:01 AM EST [facility] Blood Capillary blood specimen / Unknown 08/01/2024 8:59 AM EST 08/01/2024 9:02 AM EST Steve Cruz MD LAB POINT OF CA RE TEST DOCKED DEVICE UNSOLICITED RESULTS Final Result [facility] [address] [place] [address], [place] [phone] * POCT Glucose, blood (08/01/2024 7:34 AM EST) [facility] Glucose POCT 75 70 - 100 mg/dL 08/01/2024 7:35 AM EST [facility] Blood Capillary blood specimen / Unknown 08/01/2024 7:34 AM EST 08/01/2024 7:36 AM EST Steve Cruz MD LAB [place]INT [place] RE TEST DOCKED DEVICE UNSOLICITED RESULTS Final Result Performing Organization Address City/[facility]/ZIP Co de Phone Number [facility] [address] [place] [address], [place] [phone] * (ABNORMAL) CBC auto differential (08/01/2024 6:59 AM EST) [facility] WBC 9.2 4.8 - 10.8 K/mcL LAB HEMETOLOGY METHOD 08/01/2024 8:20 AM EST [facility] RBC 3.00(L) 3.80 - 4.80 M/[facility] LAB HEMETOLOGY METHOD 08/01/2024 8:20 AM EST [facility] Hemoglobin 7.7(L) 11.5 - 16.0 g/dL LAB HEMETOLOGY METHOD 08/01/2024 8:20 AM EST [facility] Hematocrit 25.2(L) 35.0 - 47.0 % LAB HEMETOLOGY METHOD 08/01/2024 8:20 AM [facility] MCV 84.6 79.0 - 98.0 FL LAB HEMETOLOGY METHOD 08/01/2024 8:20 AM [facility] MCH 25.8(L) 27.0 - 32.0 pcg LAB HEMETOLOGY METHOD 08/01/2024 8:20 AM [facility] MCHC 30.6(L) 32.0 - 37.0 g/dL LAB HEMETOLOGY METHOD 08/01/2024 8:20 AM [facility] RDW 23.5(H) 11.0 - 15.0 % LAB HEMETOLOGY METHOD 08/01/2024 8:20 AM [facility] Platelets 220 130 - 400 K/mcL LAB HEMETOLOGY METHOD 08/01/2024 8:20 AM [facility] MPV 11.3(H) 7.0 - 11.0 FL LAB HEMETOLOGY METHOD 08/01/2024 8:20 AM [facility] NRBC 0.0 <1.0 % LAB HEMETOLOGY METHOD 08/01/2024 8:20 AM [facility] NRBC Absolute 0.00 <0.10 K/mcL LAB HEMETOLOGY METHOD 08/01/2024 8:20 AM [facility] Neutrophils Relative 77.4 % LAB HEMETOLOGY METHOD 08/01/2024 8:20 AM [facility] Lymphocytes Relative 12.6 % LAB HEMETOLOGY METHOD 08/01/2024 8:20 AM [facility] Monocytes Relative 7.6 % LAB HEMETOLOGY METHOD 08/01/2024 8:20 AM [facility] Eosinophils Relative 0.9 % LAB HEMETOLOGY METHOD 08/01/2024 8:20 AM EST [facility] Basophils Relative 0.1 % LAB HEMETOLOGY METHOD 08/01/2024 8:20 AM EST [facility] Immature Granulocytes Relative 1.4 % LAB HEMETOLOGY METHOD 08/01/2024 8:20 AM EST [facility] Neutrophils Absolute 7.09(H) 1.50 - 7.00 K/mcL LAB HEMETOLOGY METHOD 08/01/2024 8:20 AM EST [facility] Lymphocytes Absolute 1.16 1.00 - 5.00 K/mcL LAB HEMETOLOGY METHOD 08/01/2024 8:20 AM EST [facility] Monocytes Absolute 0.70 0.20 - 1.00 K/mcL LAB HEMETOLOGY METHOD 08/01/2024 8:20 AM EST [facility] Eosinophils Absolute 0.08 0.00 - 0.50 K/mcL LAB HEMETOLOGY METHOD 08/01/2024 8:20 AM EST [facility] Basophils Absolute 0.01 0.00 - 0.20 K/mcL LAB HEMETOLOGY METHOD 08/01/2024 8:20 AM EST [facility] Immature Granulocytes Absolute 0.13(H) 0.00 - 0.03 K/mcL LAB HEMETOLOGY METHOD 08/01/2024 8:20 AM EST [facility] Blood Venous blood specimen / Unknown Existing Catheter / Unknown 08/01/2024 6:59 AM EST 08/01/2024 8:07 AM EST us Jonny Mathur MD LAB BLOOD ORDERABLES Final Re sult [facility] [address] [place] [address], * (ABNORMAL) Basic metabolic panel (08/01/2024 6:59 AM EST) Sodium 132(L) 133 - 145 mmol/L LAB CHEMISTRY METHOD 08/01/2024 8:41 AM [facility] Potassium 4.7 3.5 - 5.5 mmol/L LAB CHEMISTRY METHOD 08/01/2024 8:41 AM [facility] Chloride 96 96 - 110 mmol/L LAB CHEMISTRY METHOD 08/01/2024 8:41 AM [facility] CO2 30 21 - 32 mmol/L LAB CHEMISTRY METHOD 08/01/2024 8:41 AM [facility] Anion Gap 6 3 - 11 LAB CHEMISTRY METHOD 08/01/2024 8:41 AM [facility] Glucose 74 70 - 100 mg/dL LAB CHEMISTRY METHOD 08/01/2024 8:41 AM [facility] BUN 71(H) 5 - 25 mg/dL LAB CHEMISTRY METHOD 08/01/2024 8:41 AM [facility] Creatinine 4.62(H) 0.50 - 1.10 mg/dL LAB CHEMISTRY METHOD 08/01/2024 8:41 AM [facility] eGFR 9(L) >=60 mL/min/1. 73m2 LAB CHEMISTRY METHOD 08/01/2024 8:41 AM [facility] Comment:Calculation based on the??Chronic Kidney Disease Epidemiology Collaboration (CKD-EPI) equation refit??without adjustment for race. BUN/Creatinine Ratio 15.4 LAB CHEMISTRY METHOD 08/01/2024 8:41 AM [facility] Calcium 8.6 8.5 - 10.5 mg/dL LAB CHEMISTRY METHOD 08/01/2024 8:41 AM [facility] Blood Venous blood specimen / Unknown Existing Catheter / Unknown 08/01/2024 6:59 AM EST 08/01/2024 8:07 AM EST us Jonny Mathur MD LAB BLOOD ORDERABLES Final Re sult [facility] [address] [place] [address], [place] [phone] * (ABNORMAL) POCT Glucose, blood (07/31/2024 8:23 PM EST) Glucose POCT 279(H) 70 - 100 mg/dL 07/31/2024 8:24 PM EST [facility] POCT Comment RN Notified 07/31/2024 8:24 PM EST [facility] Blood Capillary blood specimen / Unknown 07/31/2024 8:23 PM EST 07/31/2024 8:25 PM EST us Jonny Mathur MD LAB POINT OF CARE TE ST DOCKED DEVICE UNSOLICITED RESULTS Final Result Performing Organization Address [facility]/ZIP Co de Phone Number [facility] [address] [place] [address], [place] [phone] * (ABNORMAL) POCT Glucose, blood (07/31/2024 4:20 PM EST) [facility] Glucose POCT 241(H) 70 - 100 mg/dL 07/31/2024 4:21 PM EST [facility] Blood Capillary blood specimen / Unknown 07/31/2024 4:20 PM EST 07/31/2024 4:22 PM EST us Jonny Mathur MD LAB POINT OF CARE TE ST DOCKED DEVICE UNSOLICITED RESULTS Final Result Performing Organization Address City/[facility]/ZIP Co de Phone Number [facility] [address] [place] [address], [place] [phone] * (ABNORMAL) Hemoglobin and hematocrit (07/31/2024 2:30 PM EST) Hemoglobin 7.3(L) 11.5 - 16.0 g/dL LAB HEMETOLOGY METHOD 07/31/2024 3:12 PM EST [facility] Hematocrit 23.7(L) 35.0 - 47.0 % LAB HEMETOLOGY METHOD 07/31/2024 3:12 PM EST [facility] Blood Venous blood specimen / Unknown Venipuncture / Unknown 07/31/2024 2:30 PM EST 07/31/2024 3:05 PM EST us Jonny Mathur MD LAB BLOOD ORDERABLES Final Re sult Performing Organization Address [facility]/State/ZIP Co de Phone Number [facility] [address] [place] [address], [place] [phone] * (ABNORMAL) POCT Glucose, blood (07/31/2024 11:22 AM EST) Glucose POCT 132(H) 70 - 100 mg/dL 07/31/2024 11:24 AM EST [facility] Blood Capillary blood specimen / Unknown 07/31/2024 11:22 AM EST 07/31/2024 11:25 AM EST us Jonny Mathur MD LAB POINT OF CARE TE ST DOCKED DEVICE UNSOLICITED RESULTS Final Result Performing Organization Address [facility]/ZIP Co de Phone Number [facility] [address] [place] [address], [place] [phone] * (ABNORMAL) POCT Glucose, blood (07/31/2024 8:06 AM EST) Glucose POCT 112(H) 70 - 100 mg/dL 07/31/2024 8:06 AM EST [facility] Blood Capillary blood specimen / Unknown 07/31/2024 8:06 AM EST 07/31/2024 8:08 AM EST us Jonny Mathur MD LAB POINT OF CARE TE ST DOCKED DEVICE UNSOLICITED RESULTS Final Result [facility] [address] [place] [address], * (ABNORMAL) CBC auto differential (07/31/2024 5:43 AM EST) [facility] Signature WBC 7.4 4.8 - 10.8 K/mcL LAB HEMETOLOGY METHOD 07/31/2024 7:02 AM [facility] RBC 2.60(L) 3.80 - 4.80 M/mcL LAB HEMETOLOGY METHOD 07/31/2024 7:02 AM [facility] Hemoglobin 6.7(L) 11.5 - 16.0 g/dL LAB HEMETOLOGY METHOD 07/31/2024 7:02 AM [facility] Hematocrit 22.0(L) 35.0 - 47.0 % LAB HEMETOLOGY METHOD 07/31/2024 7:02 AM [facility] MCV 84.0 79.0 - 98.0 FL LAB HEMETOLOGY METHOD 07/31/2024 7:02 AM [facility] MCH 25.6(L) 27.0 - 32.0 pcg LAB HEMETOLOGY METHOD 07/31/2024 7:02 AM [facility] MCHC 30.5(L) 32.0 - 37.0 g/dL LAB HEMETOLOGY METHOD 07/31/2024 7:02 AM [facility] [facility] RDW 23.1(H) 11.0 - 15.0 % LAB HEMETOLOGY METHOD 07/31/2024 7:02 AM [facility] LAB Platelets 183 130 - 400 K/mcL LAB HEMETOLOGY METHOD 07/31/2024 7:02 AM [facility] LAB MPV 11.1(H) 7.0 - 11.0 FL LAB HEMETOLOGY METHOD 07/31/2024 7:02 AM EST [facility] NRBC 0.0 <1.0 % LAB HEMETOLOGY METHOD 07/31/2024 7:02 AM [facility] NRBC Absolute 0.00 <0.10 K/mcL LAB HEMETOLOGY METHOD 07/31/2024 7:02 AM [facility] LAB Neutrophils Relative 77.7 % LAB HEMETOLOGY METHOD 07/31/2024 7:02 AM [facility] Lymphocytes Relative 11.7 % LAB HEMETOLOGY METHOD 07/31/2024 7:02 AM [facility] Monocytes Relative 8.6 % LAB HEMETOLOGY METHOD 07/31/2024 7:02 AM [facility] Eosinophils Relative 0.3 % LAB HEMETOLOGY METHOD 07/31/2024 7:02 AM [facility] Basophils Relative 0.1 % LAB HEMETOLOGY METHOD 07/31/2024 7:02 AM [facility] LAB Immature Granulocytes Relative 1.6 % LAB HEMETOLOGY METHOD 07/31/2024 7:02 AM [facility] LAB Neutrophils Absolute 5.77 1.50 - 7.00 K/mcL LAB HEMETOLOGY METHOD 07/31/2024 7:02 AM [facility] Lymphocytes Absolute 0.87(L) 1.00 - 5.00 K/mcL LAB HEMETOLOGY METHOD 07/31/2024 7:02 AM [facility] Monocytes Absolute 0.64 0.20 - 1.00 K/mcL LAB HEMETOLOGY METHOD 07/31/2024 7:02 AM [facility] LAB Eosinophils Absolute 0.02 0.00 - 0.50 K/mcL LAB HEMETOLOGY METHOD 07/31/2024 7:02 AM [facility] LAB Basophils Absolute 0.01 0.00 - 0.20 K/mcL LAB HEMETOLOGY METHOD 07/31/2024 7:02 AM [facility] LAB Immature Granulocytes Absolute 0.12(H) 0.00 - 0.03 K/mcL LAB HEMETOLOGY METHOD 07/31/2024 7:02 AM [facility] LAB Blood Venous blood specimen / Unknown Existing Catheter / Unknown 07/31/2024 5:43 AM EST 07/31/2024 6:34 AM EST us Jonny Mathur MD LAB BLOOD ORDERABLES Final Re sult [facility] [address] [place] [address], [place] [phone] * (ABNORMAL) Basic metabolic panel (07/31/2024 5:43 AM EST) Sodium 132(L) 133 - 145 mmol/L LAB CHEMISTRY METHOD 07/31/2024 7:22 AM [facility] Potassium 4.4 3.5 - 5.5 mmol/L LAB CHEMISTRY METHOD 07/31/2024 7:22 AM [facility] Chloride 94(L) 96 - 110 mmol/L LAB CHEMISTRY METHOD 07/31/2024 7:22 AM [facility] LAB CO2 31 21 - 32 mmol/L LAB CHEMISTRY METHOD 07/31/2024 7:22 AM [facility] LAB Anion Gap 7 3 - 11 LAB CHEMISTRY METHOD 07/31/2024 7:22 AM [facility] Glucose 123(H) 70 - 100 mg/dL LAB CHEMISTRY METHOD 07/31/2024 7:22 AM [facility] BUN 54(H) 5 - 25 mg/dL LAB CHEMISTRY METHOD 07/31/2024 7:22 AM [facility] Creatinine 3.73(H) 0.50 - 1.10 mg/dL LAB CHEMISTRY METHOD 07/31/2024 7:22 AM [facility] LAB eGFR 12(L) >=60 mL/min/1. 73m2 LAB CHEMISTRY METHOD 07/31/2024 7:22 AM EST [facility] LAB Comment:Calculation based on the??Chronic Kidney Disease Epidemiology Collaboration (CKD-EPI) equation refit??without adjustment for race. BUN/Creatinine Ratio 14.5 LAB CHEMISTRY METHOD 07/31/2024 7:22 AM [facility] Calcium 8.3(L) 8.5 - 10.5 mg/dL LAB CHEMISTRY METHOD 07/31/2024 7:22 AM [facility] LAB Blood Venous blood specimen / Unknown Existing Catheter / Unknown 07/31/2024 5:43 AM EST 07/31/2024 6:36 AM EST us Jonny Mathur MD LAB BLOOD ORDERABLES Final Re sult Performing Organization Address [facility]/ZIP Co de Phone Number [facility] [address] [place] [address], [place] [phone] * (ABNORMAL) POCT Glucose, blood (07/30/2024 7:51 PM EST) Glucose POCT 315(H) 70 - 100 mg/dL 07/30/2024 7:51 PM EST [facility] LAB Blood Capillary blood specimen / Unknown 07/30/2024 7:51 PM EST 07/30/2024 7:52 PM EST us Jonny Mathur MD LAB POINT OF CARE TE ST DOCKED DEVICE UNSOLICITED RESULTS Final Result Performing Organization Address City/[facility]/ZIP Co de Phone Number [facility] [address] [place] [address], [place] [phone] * (ABNORMAL) POCT Glucose, blood (07/30/2024 5:02 PM EST) Glucose POCT 299(H) 70 - 100 mg/dL 07/30/2024 5:03 PM EST [facility] Blood Capillary blood specimen / Unknown 07/30/2024 5:02 PM EST 07/30/2024 5:04 PM EST us Jonny Mathur MD LAB POINT OF CARE TE ST DOCKED DEVICE UNSOLICITED RESULTS Final Result Performing Organization Address [facility]/ZIP Co de Phone Number [facility] [address] [place] [address], [place] [phone] * (ABNORMAL) Hemoglobin and hematocrit (07/30/2024 3:32 PM EST) Pathologist [facility] Hemoglobin 7.1(L) 11.5 - 16.0 g/dL LAB HEMETOLOGY METHOD 07/30/2024 3:53 PM EST [facility] LAB Hematocrit 23.1(L) 35.0 - 47.0 % LAB HEMETOLOGY METHOD 07/30/2024 3:53 PM EST [facility] Blood Venous blood specimen / Unknown Venipuncture / Unknown 07/30/2024 3:32 PM EST 07/30/2024 3:46 PM EST us Jonny Mathur MD LAB BLOOD ORDERABLES Final Re sult Performing Organization Address [facility]/ZIP Co de Phone Number [facility] [address] [place] [address], [place] [phone] * (ABNORMAL) Hepatic Function Panel - STAT (07/30/2024 11:52 AM EST) [facility] Total Protein 5.2(L) 6.0 - 8.0 g/dL LAB CHEMISTRY METHOD 07/30/2024 12:56 PM EST [facility] Albumin 2.4(L) 3.2 - 5.0 g/dL LAB CHEMISTRY METHOD 07/30/2024 12:56 PM EST [facility] Total Bilirubin 0.4 0.0 - 1.4 mg/dL LAB CHEMISTRY METHOD 07/30/2024 12:56 PM EST [facility] Bilirubin, Direct 0.2 0.0 - 0.3 mg/dL LAB CHEMISTRY METHOD 07/30/2024 12:56 PM EST [facility] Bilirubin, Indirect 0.2 0.0 - 1.1 mg/dL LAB CHEMISTRY METHOD 07/30/2024 12:56 PM [facility] ALT (SGPT) 17 10 - 60 unit/L LAB CHEMISTRY METHOD 07/30/2024 12:56 PM [facility] AST (SGOT) 12 10 - 42 unit/L LAB CHEMISTRY METHOD 07/30/2024 12:56 PM [facility] Alkaline Phosphatase 80 42 - 121 unit/L LAB CHEMISTRY METHOD 07/30/2024 12:56 PM [facility] Blood Venous blood specimen / Unknown Venipuncture / Unknown 07/30/2024 11:52 AM EST 07/30/2024 12:28 PM EST Jonny Mathur MD LAB BLOOD ORDERABLES Final Re sult [facility] [address] [place] [address], [place] [phone] * (ABNORMAL) POCT Glucose, blood (07/30/2024 11:22 AM EST) Glucose POCT 182(H) 70 - 100 mg/dL 07/30/2024 11:25 AM EST [facility] Blood Capillary blood specimen / Unknown 07/30/2024 11:22 AM EST 07/30/2024 11:25 AM EST Jonny Mathur MD LAB POINT OF CARE TE ST DOCKED DEVICE UNSOLICITED RESULTS Final Result Performing Organization Address City/[facility]/ZIP Co de Phone Number [facility] [address] [place] [address], [place] [phone] * (ABNORMAL) POCT Glucose, blood (07/30/2024 7:47 AM EST) Pathologist [facility] Glucose POCT 173(H) 70 - 100 mg/dL 07/30/2024 7:48 AM [facility] Blood Capillary blood specimen / Unknown 07/30/2024 7:47 AM EST 07/30/2024 7:49 AM EST us Jonny Mathur MD LAB POINT OF CARE TE ST DOCKED DEVICE UNSOLICITED RESULTS Final Result [facility] [address] [place] [address], * (ABNORMAL) CBC - Every 3 Days (07/30/2024 6:10 AM EST) [facility] WBC 8.0 4.8 - 10.8 K/mcL LAB HEMETOLOGY METHOD 07/30/2024 6:55 AM [facility] RBC 2.90(L) 3.80 - 4.80 M/mcL LAB HEMETOLOGY METHOD 07/30/2024 6:55 AM [facility] Hemoglobin 7.2(L) 11.5 - 16.0 g/dL LAB HEMETOLOGY METHOD 07/30/2024 6:55 AM [facility] LAB Hematocrit 23.9(L) 35.0 - 47.0 % LAB HEMETOLOGY METHOD 07/30/2024 6:55 AM [facility] LAB MCV 83.6 79.0 - 98.0 FL LAB HEMETOLOGY METHOD 07/30/2024 6:55 AM [facility] LAB MCH 25.2(L) 27.0 - 32.0 pcg LAB HEMETOLOGY METHOD 07/30/2024 6:55 AM [facility] MCHC 30.1(L) 32.0 - 37.0 g/dL LAB HEMETOLOGY METHOD 07/30/2024 6:55 AM EST [facility] RDW 22.9(H) 11.0 - 15.0 % LAB HEMETOLOGY METHOD 07/30/2024 6:55 AM EST [facility] LAB Platelets 176 130 - 400 K/mcL LAB HEMETOLOGY METHOD 07/30/2024 6:55 AM EST [facility] MPV 10.7 7.0 - 11.0 FL LAB HEMETOLOGY METHOD 07/30/2024 6:55 AM EST [facility] NRBC 0.0 <1.0 % LAB HEMETOLOGY METHOD 07/30/2024 6:55 AM EST [facility] NRBC Absolute 0.00 <0.10 K/mcL LAB HEMETOLOGY METHOD 07/30/2024 6:55 AM EST [facility] LAB Blood Venous blood specimen / Unknown Venipuncture / Unknown 07/30/2024 6:10 AM EST 07/30/2024 6:25 AM EST [facility] [employer] [facility] [facility] LAB BLOOD ORDERABLES Final R esult [facility] [address] [place] [address], * (ABNORMAL) Heparin and low molecular weight anti Xa level (07/30/2024 6:10 AM EST) Heparin Anti-Xa 1.16(H) 0.30 - 0.70 I Unit/mL LAB COAGULATION METHOD 07/30/2024 6:53 AM EST [facility] LAB Blood Venous blood specimen / Unknown Venipuncture / Unknown 07/30/2024 6:10 AM EST 07/30/2024 6:26 AM EST [facility] LAB - 07/30/2024 6:53 AM EST Therapeutic range listed is for Unfractionated Heparin. LMW Heparin therapeutic range: 0.50-1.20 IU/mL Jonny Mathur MD LAB BLOOD ORDERABLES Final Re sult Performing Organization Address [facility]/ZIP Co de Phone Number [facility] [address] [place] [address], [place] [phone] * (ABNORMAL) POCT Glucose, blood (07/29/2024 8:11 PM EST) Glucose POCT 321(H) 70 - 100 mg/dL 07/29/2024 8:19 PM EST [facility] Blood Capillary blood specimen / Unknown 07/29/2024 8:11 PM EST 07/29/2024 8:20 PM EST us Jonny Mathur MD LAB POINT OF CARE TE ST DOCKED DEVICE UNSOLICITED RESULTS Final Result Performing Organization Address [facility]/ZIP Co de Phone Number [facility] [address] [place] [address], [place] [phone] * (ABNORMAL) POCT Glucose, blood (07/29/2024 4:19 PM EST) [facility] Glucose POCT 267(H) 70 - 100 mg/dL 07/29/2024 4:21 PM EST [facility] Blood Capillary blood specimen / Unknown 07/29/2024 4:19 PM EST 07/29/2024 4:22 PM EST us Jonny Mathur MD LAB POINT OF CARE TE ST DOCKED DEVICE UNSOLICITED RESULTS Final Result Performing Organization Address [facility]/ZIP Co de Phone Number [facility] [address] [place] [address], [place] [phone] * Hepatitis B surface antigen with reflex to confirmation (07/29/2024 11:51 AM EST) Pathologist [facility] Hepatitis B Surface Ag Negative Negative LAB CHEMISTRY METHOD 07/29/2024 3:12 PM EST [facility] LAB Blood Venous blood specimen / Unknown Venipuncture / Unknown 07/29/2024 11:51 AM EST 07/29/2024 1:08 PM EST [facility] LAB - 07/29/2024 3:12 PM EST Over the counter supplements containing high doses of biotin may interfere with this assay. ??If interference is suspected, patients shoud be retested after refraining from biotin supplements for 72 hours. us Jonny Mathur MD LAB BLOOD ORDERABLES Final Re sult [facility] [address] [place] [address], [place] [phone] * (ABNORMAL) POCT Glucose, blood (07/29/2024 11:23 AM EST) Glucose POCT 108(H) 70 - 100 mg/dL 07/29/2024 11:30 AM EST [facility] Blood Capillary blood specimen / Unknown 07/29/2024 11:23 AM EST 07/29/2024 11:31 AM EST us Jonny Mathur MD LAB POINT OF CARE TE ST DOCKED DEVICE UNSOLICITED RESULTS Final Result [facility] [address] [place] [address], [place] [phone] * Heparin and low molecular weight anti Xa level (07/29/2024 5:54 AM EST) Heparin Anti-Xa 0.61 0.30 - 0.70 I Unit/mL LAB COAGULATION METHOD 07/29/2024 6:54 AM EST [facility] LAB Blood Venous blood specimen / Unknown Venipuncture / Unknown 07/29/2024 5:54 AM EST 07/29/2024 6:34 AM EST [facility] LAB - 07/29/2024 6:54 AM EST Therapeutic range listed is for Unfractionated Heparin. LMW Heparin therapeutic range: 0.50-1.20 IU/mL us Jonny Mathur MD LAB BLOOD ORDERABLES Final Re sult [facility] [address] [place] [address], * (ABNORMAL) CBC auto differential (07/29/2024 5:54 AM EST) WBC 7.3 4.8 - 10.8 K/mcL LAB HEMETOLOGY METHOD 07/29/2024 6:55 AM [facility] RBC 2.60(L) 3.80 - 4.80 M/mcL LAB HEMETOLOGY METHOD 07/29/2024 6:55 AM [facility] Hemoglobin 6.7(L) 11.5 - 16.0 g/dL LAB HEMETOLOGY METHOD 07/29/2024 6:55 AM [facility] LAB Hematocrit 21.7(L) 35.0 - 47.0 % LAB HEMETOLOGY METHOD 07/29/2024 6:55 AM [facility] LAB MCV 82.8 79.0 - 98.0 FL LAB HEMETOLOGY METHOD 07/29/2024 6:55 AM [facility] LAB MCH 25.6(L) 27.0 - 32.0 pcg LAB HEMETOLOGY METHOD 07/29/2024 6:55 AM [facility] LAB MCHC 30.9(L) 32.0 - 37.0 g/dL LAB HEMETOLOGY METHOD 07/29/2024 6:55 AM [facility] LAB RDW 23.1(H) 11.0 - 15.0 % LAB HEMETOLOGY METHOD 07/29/2024 6:55 AM [facility] LAB Platelets 146 130 - 400 K/mcL LAB HEMETOLOGY METHOD 07/29/2024 6:55 AM [facility] MPV 10.7 7.0 - 11.0 FL LAB HEMETOLOGY METHOD 07/29/2024 6:55 AM [facility] NRBC 0.0 <1.0 % LAB HEMETOLOGY METHOD 07/29/2024 6:55 AM [facility] NRBC Absolute 0.00 <0.10 K/mcL LAB HEMETOLOGY METHOD 07/29/2024 6:55 AM [facility] Neutrophils Relative 83.4 % LAB HEMETOLOGY METHOD 07/29/2024 6:55 AM [facility] Lymphocytes Relative 8.2 % LAB HEMETOLOGY METHOD 07/29/2024 6:55 AM [facility] Monocytes Relative 6.1 % LAB HEMETOLOGY METHOD 07/29/2024 6:55 AM [facility] Eosinophils Relative 0.3 % LAB HEMETOLOGY METHOD 07/29/2024 6:55 AM [facility] Basophils Relative 0.1 % LAB HEMETOLOGY METHOD 07/29/2024 6:55 AM [facility] Immature Granulocytes Relative 1.9 % LAB HEMETOLOGY METHOD 07/29/2024 6:55 AM [facility] Neutrophils Absolute 6.11 1.50 - 7.00 K/mcL LAB HEMETOLOGY METHOD 07/29/2024 6:55 AM [facility] Lymphocytes Absolute 0.60(L) 1.00 - 5.00 K/mcL LAB HEMETOLOGY METHOD 07/29/2024 6:55 AM [facility] Monocytes Absolute 0.45 0.20 - 1.00 K/mcL LAB HEMETOLOGY METHOD 07/29/2024 6:55 AM [facility] Eosinophils Absolute 0.02 0.00 - 0.50 K/mcL LAB HEMETOLOGY METHOD 07/29/2024 6:55 AM EST [facility] Basophils Absolute 0.01 0.00 - 0.20 K/[facility] LAB HEMETOLOGY METHOD 07/29/2024 6:55 AM EST [facility] Immature Granulocytes Absolute 0.14(H) 0.00 - 0.03 K/[facility] LAB HEMETOLOGY METHOD 07/29/2024 6:55 AM EST [facility] Blood Venous blood specimen / Unknown Venipuncture / Unknown 07/29/2024 5:54 AM EST 07/29/2024 6:34 AM EST us Jonny Mathur MD LAB BLOOD ORDERABLES Final Re sult [facility] [address] [place] [address], * (ABNORMAL) Basic metabolic panel (07/29/2024 5:54 AM EST) Sodium 131(L) 133 - 145 mmol/L LAB CHEMISTRY METHOD 07/29/2024 7:22 AM [facility] Potassium 4.2 3.5 - 5.5 mmol/L LAB CHEMISTRY METHOD 07/29/2024 7:22 AM [facility] Chloride 95(L) 96 - 110 mmol/L LAB CHEMISTRY METHOD 07/29/2024 7:22 AM [facility] CO2 31 21 - 32 mmol/L LAB CHEMISTRY METHOD 07/29/2024 7:22 AM [facility] Anion Gap 5 3 - 11 LAB CHEMISTRY METHOD 07/29/2024 7:22 AM [facility] Glucose 180(H) 70 - 100 mg/dL LAB CHEMISTRY METHOD 07/29/2024 7:22 AM [facility] BUN 49(H) 5 - 25 mg/dL LAB CHEMISTRY METHOD 07/29/2024 7:22 AM [facility] Creatinine 3.73(H) 0.50 - 1.10 mg/dL LAB CHEMISTRY METHOD 07/29/2024 7:22 AM [facility] LAB eGFR 12(L) >=60 mL/min/1. 73m2 LAB CHEMISTRY METHOD 07/29/2024 7:22 AM [facility] LAB Comment:Calculation based on the??Chronic Kidney Disease Epidemiology Collaboration (CKD-EPI) equation refit??without adjustment for race. BUN/Creatinine Ratio 13.1 LAB CHEMISTRY METHOD 07/29/2024 7:22 AM [facility] Calcium 7.8(L) 8.5 - 10.5 mg/dL LAB CHEMISTRY METHOD 07/29/2024 7:22 AM [facility] LAB Blood Venous blood specimen / Unknown Venipuncture / Unknown 07/29/2024 5:54 AM EST 07/29/2024 6:34 AM EST Jonny Mathur MD LAB BLOOD ORDERABLES Final Re sult [facility] [address] [place] [address], * Heparin and low molecular weight anti Xa level (07/28/2024 11:42 PM EST) Heparin Anti-Xa 0.65 0.30 - 0.70 I Unit/mL LAB COAGULATION METHOD 07/29/2024 12:10 AM [facility] LAB Blood Venous blood specimen / Unknown Venipuncture / Unknown 07/28/2024 11:42 PM EST 07/28/2024 11:52 PM EST Narrative [facility] - 07/29/2024 12:10 AM EST Therapeutic range listed is for Unfractionated Heparin. LMW Heparin therapeutic range: 0.50-1.20 IU/mL Jonny Mathur MD LAB BLOOD ORDERABLES Final Re sult Performing Organization Address City/[facility]/ZIP Co de Phone Number [facility] [address] [place] [address], [place] [phone] * (ABNORMAL) Heparin and low molecular weight anti Xa level (07/28/2024 7:46 PM EST) Heparin Anti-Xa 1.05(H) 0.30 - 0.70 I Unit/mL LAB COAGULATION METHOD 07/28/2024 9:19 PM EST [facility] Blood Venous blood specimen / Unknown Venipuncture / Unknown 07/28/2024 7:46 PM EST 07/28/2024 9:09 PM EST Narrative [facility] - 07/28/2024 9:19 PM EST Therapeutic range listed is for Unfractionated Heparin. LMW Heparin therapeutic range: 0.50-1.20 IU/mL Jonny Mathur MD LAB BLOOD ORDERABLES Final Re sult Performing Organization Address [facility]/ZIP Co de Phone Number [facility] [address] [place] [address], [place] [phone] * (ABNORMAL) POCT Glucose, blood (07/28/2024 7:41 PM EST) Glucose POCT 269(H) 70 - 100 mg/dL 07/28/2024 7:41 PM EST [facility] Blood Capillary blood specimen / Unknown 07/28/2024 7:41 PM EST 07/28/2024 7:43 PM EST Jonny Mathur MD LAB POINT OF CARE TE ST DOCKED DEVICE UNSOLICITED RESULTS Final Result Performing Organization Address [facility]/ZIP Co de Phone Number [facility] [address] [place] [address], [place] [phone] * (ABNORMAL) POCT Glucose, blood (07/28/2024 4:54 PM EST) [facility] Glucose POCT 258(H) 70 - 100 mg/dL 07/28/2024 4:56 PM EST [facility] Blood Capillary blood specimen / Unknown 07/28/2024 4:54 PM EST 07/28/2024 4:57 PM EST Jonny Mathur MD LAB POINT OF CARE TE ST DOCKED DEVICE UNSOLICITED RESULTS Final Result Performing Organization Address [facility] Co de Phone Number [facility] [address] [place] [address], [place] [phone] * Hepatitis B core antibody IgM (07/28/2024 12:19 PM EST) [facility] Hep B Core IgM Negative Negative LAB CHEMISTRY METHOD 07/28/2024 3:22 PM EST [facility] Blood Venous blood specimen / Unknown Venipuncture / Unknown 07/28/2024 12:19 PM EST 07/28/2024 12:35 PM EST Narrative [facility] - 07/28/2024 3:22 PM EST Over the counter supplements containing high doses of biotin may interfere with this assay. ??If interference is suspected, patients shoud be retested after refraining from biotin supplements for 72 hours. Miguel Quiles MD LAB BLOOD ORDERABLES Final Res ult Performing Organization Address City/[facility]/ZIP Co de Phone Number [facility] [address] [place] [address], [place] [phone] * Hepatitis B surface antibody (07/28/2024 12:19 PM EST) [facility] Hepatitis B Surface Ab Negative Negative LAB CHEMISTRY METHOD 07/28/2024 1:40 PM EST [facility] Hepatitis B Surface Ab Quantitative <3.1 mIU/mL LAB CHEMISTRY METHOD 07/28/2024 1:40 PM EST [facility] Blood Venous blood specimen / Unknown Venipuncture / Unknown 07/28/2024 12:19 PM EST 07/28/2024 12:35 PM EST Narrative [facility] - 07/28/2024 1:40 PM EST >=10 mIU/mL is considered to be consistent with immunity. Miguel Quiles MD LAB BLOOD ORDERABLES Final Res ult [facility] [address] [place] [address], [place] [phone] * (ABNORMAL) POCT Glucose, blood (07/28/2024 11:02 AM EST) Glucose POCT 220(H) 70 - 100 mg/dL 07/28/2024 11:04 AM EST [facility] Blood Capillary blood specimen / Unknown 07/28/2024 11:02 AM EST 07/28/2024 11:05 AM EST Jonny Mathur MD LAB POINT OF CARE TE ST DOCKED DEVICE UNSOLICITED RESULTS Final Result Performing Organization Address City/[facility]/ZIP Co de Phone Number [facility] [address] [place] [address], [place] [phone] * (ABNORMAL) CBC auto differential (07/28/2024 9:51 AM EST) WBC 13.0(H) 4.8 - 10.8 K/[facility] LAB HEMETOLOGY METHOD 07/28/2024 12:32 PM EST [facility] RBC 3.10(L) 3.80 - 4.80 M/[facility] LAB HEMETOLOGY METHOD 07/28/2024 12:32 PM EST [facility] Hemoglobin 8.0(L) 11.5 - 16.0 g/dL LAB HEMETOLOGY METHOD 07/28/2024 12:32 PM [facility] Hematocrit 26.5(L) 35.0 - 47.0 % LAB HEMETOLOGY METHOD 07/28/2024 12:32 PM [facility] MCV 84.9 79.0 - 98.0 FL LAB HEMETOLOGY METHOD 07/28/2024 12:32 PM [facility] MCH 25.6(L) 27.0 - 32.0 pcg LAB HEMETOLOGY METHOD 07/28/2024 12:32 PM [facility] MCHC 30.2(L) 32.0 - 37.0 g/dL LAB HEMETOLOGY METHOD 07/28/2024 12:32 PM [facility] RDW 22.8(H) 11.0 - 15.0 % LAB HEMETOLOGY METHOD 07/28/2024 12:32 PM [facility] Platelets 158 130 - 400 K/mcL LAB HEMETOLOGY METHOD 07/28/2024 12:32 PM [facility] MPV 11.5(H) 7.0 - 11.0 FL LAB HEMETOLOGY METHOD 07/28/2024 12:32 PM [facility] NRBC 0.0 <1.0 % LAB HEMETOLOGY METHOD 07/28/2024 12:32 PM [facility] NRBC Absolute 0.00 <0.10 K/mcL LAB HEMETOLOGY METHOD 07/28/2024 12:32 PM [facility] Neutrophils Relative 86.3 % LAB HEMETOLOGY METHOD 07/28/2024 12:32 PM [facility] [facility] Lymphocytes Relative 5.8 % LAB HEMETOLOGY METHOD 07/28/2024 12:32 PM [facility] Monocytes Relative 4.8 % LAB HEMETOLOGY METHOD 07/28/2024 12:32 PM [facility] Eosinophils Relative 1.7 % LAB HEMETOLOGY METHOD 07/28/2024 12:32 PM EST [facility] Basophils Relative 0.1 % LAB HEMETOLOGY METHOD 07/28/2024 12:32 PM EST [facility] Immature Granulocytes Relative 1.3 % LAB HEMETOLOGY METHOD 07/28/2024 12:32 PM [facility] Neutrophils Absolute 11.22(H) 1.50 - 7.00 K/mcL LAB HEMETOLOGY METHOD 07/28/2024 12:32 PM EST [facility] Lymphocytes Absolute 0.76(L) 1.00 - 5.00 K/mcL LAB HEMETOLOGY METHOD 07/28/2024 12:32 PM [facility] Monocytes Absolute 0.63 0.20 - 1.00 K/mcL LAB HEMETOLOGY METHOD 07/28/2024 12:32 PM [facility] Eosinophils Absolute 0.22 0.00 - 0.50 K/mcL LAB HEMETOLOGY METHOD 07/28/2024 12:32 PM EST [facility] Basophils Absolute 0.01 0.00 - 0.20 K/mcL LAB HEMETOLOGY METHOD 07/28/2024 12:32 PM [facility] Immature Granulocytes Absolute 0.17(H) 0.00 - 0.03 K/mcL LAB HEMETOLOGY METHOD 07/28/2024 12:32 PM [facility] Blood Venous blood specimen / Unknown Venipuncture / Unknown 07/28/2024 9:51 AM EST 07/28/2024 12:19 PM EST us Jonny Mathur MD LAB BLOOD ORDERABLES Final Re sult [facility] [address] [place] [address], * (ABNORMAL) Basic metabolic panel (07/28/2024 9:51 AM EST) Sodium 134 133 - 145 mmol/L LAB CHEMISTRY METHOD 07/28/2024 1:16 PM [facility] Potassium 4.0 3.5 - 5.5 mmol/L LAB CHEMISTRY METHOD 07/28/2024 1:16 PM [facility] Chloride 95(L) 96 - 110 mmol/L LAB CHEMISTRY METHOD 07/28/2024 1:16 PM [facility] CO2 29 21 - 32 mmol/L LAB CHEMISTRY METHOD 07/28/2024 1:16 PM [facility] Anion Gap 10 3 - 11 LAB CHEMISTRY METHOD 07/28/2024 1:16 PM [facility] Glucose 230(H) 70 - 100 mg/dL LAB CHEMISTRY METHOD 07/28/2024 1:16 PM [facility] BUN 32(H) 5 - 25 mg/dL LAB CHEMISTRY METHOD 07/28/2024 1:16 PM [facility] Creatinine 2.82(H) 0.50 - 1.10 mg/dL LAB CHEMISTRY METHOD 07/28/2024 1:16 PM [facility] eGFR 16(L) >=60 mL/min/1. 73m2 LAB CHEMISTRY METHOD 07/28/2024 1:16 PM [facility] Comment:Calculation based on the??Chronic Kidney Disease Epidemiology Collaboration (CKD-EPI) equation refit??without adjustment for race. BUN/Creatinine Ratio 11.3 LAB CHEMISTRY METHOD 07/28/2024 1:16 PM [facility] Calcium 7.9(L) 8.5 - 10.5 mg/dL LAB CHEMISTRY METHOD 07/28/2024 1:16 PM [facility] Blood Venous blood specimen / Unknown Venipuncture / Unknown 07/28/2024 9:51 AM EST 07/28/2024 12:18 PM EST us Jonny Mathur MD LAB BLOOD ORDERABLES Final Re sult Performing Organization Address [facility]/ZIP Co de Phone Number [facility] [address] [place] [address], [place] [phone] * (ABNORMAL) Heparin and low molecular weight anti Xa level (07/28/2024 9:51 AM EST) Heparin Anti-Xa 0.16(L) 0.30 - 0.70 I Unit/mL LAB COAGULATION METHOD 07/28/2024 12:37 PM EST [facility] Blood Venous blood specimen / Unknown Venipuncture / Unknown 07/28/2024 9:51 AM EST 07/28/2024 12:19 PM EST Narrative [facility] - 07/28/2024 12:37 PM EST Therapeutic range listed is for Unfractionated Heparin. LMW Heparin therapeutic range: 0.50-1.20 IU/mL us Jonny Mathur MD LAB BLOOD ORDERABLES Final Re sult Performing Organization Address [facility]/ZIP Co de Phone Number [facility] [address] [place] [address], [place] [phone] * (ABNORMAL) POCT Glucose, blood (07/28/2024 9:29 AM EST) Glucose POCT 214(H) 70 - 100 mg/dL 07/28/2024 10:23 AM EST [facility] Blood Capillary blood specimen / Unknown 07/28/2024 9:29 AM EST 07/28/2024 10:24 AM EST us Jonny Mathur MD LAB POINT OF CARE TE ST DOCKED DEVICE UNSOLICITED RESULTS Final Result Performing Organization Address [facility]/ZIP Co de Phone Number [facility] [address] [place] [address], [place] [phone] * Heparin and low molecular weight anti Xa level (07/28/2024 2:09 AM EST) Heparin Anti-Xa 0.39 0.30 - 0.70 I Unit/mL LAB COAGULATION METHOD 07/28/2024 2:28 AM EST [facility] Blood Venous blood specimen / Unknown Venipuncture / Unknown 07/28/2024 2:09 AM EST 07/28/2024 2:16 AM EST Narrative [facility] - 07/28/2024 2:28 AM EST Therapeutic range listed is for Unfractionated Heparin. LMW Heparin therapeutic range: 0.50-1.20 IU/mL us Jonny Mathur MD LAB BLOOD ORDERABLES Final Re sult Performing Organization Address [facility]/ZIP Co de Phone Number [facility] [address] [place] [address], [place] [phone] * (ABNORMAL) Heparin and low molecular weight anti Xa level (07/27/2024 11:55 PM EST) Heparin Anti-Xa 0.22(L) 0.30 - 0.70 I Unit/mL LAB COAGULATION METHOD 07/28/2024 12:28 AM EST [facility] Blood Venous blood specimen / Unknown Venipuncture / Unknown 07/27/2024 11:55 PM EST 07/28/2024 12:20 AM EST Narrative [facility] - 07/28/2024 12:28 AM EST Therapeutic range listed is for Unfractionated Heparin. LMW Heparin therapeutic range: 0.50-1.20 IU/mL us Jonny Mathur MD LAB BLOOD ORDERABLES Final Re sult Performing Organization Address City/[facility]/ZIP Co de Phone Number [facility] [address] [place] [address], [place] [phone] * (ABNORMAL) Heparin and low molecular weight anti Xa level (07/27/2024 9:31 PM EST) Heparin Anti-Xa 1.11(H) 0.30 - 0.70 I Unit/mL LAB COAGULATION METHOD 07/27/2024 9:51 PM EST [facility] Blood Venous blood specimen / Unknown Venipuncture / Unknown 07/27/2024 9:31 PM EST 07/27/2024 9:37 PM EST Narrative [facility] - 07/27/2024 9:51 PM EST Therapeutic range listed is for Unfractionated Heparin. LMW Heparin therapeutic range: 0.50-1.20 IU/mL us Jonny Mathur MD LAB BLOOD ORDERABLES Final Re sult [facility] [address] [place] [address], [place] [phone] * (ABNORMAL) POCT Glucose, blood (07/27/2024 8:12 PM EST) Glucose POCT 249(H) 70 - 100 mg/dL 07/27/2024 8:13 PM EST [facility] Blood Capillary blood specimen / Unknown 07/27/2024 8:12 PM EST 07/27/2024 8:14 PM EST us Jonny Mathur MD LAB POINT OF CARE TE ST DOCKED DEVICE UNSOLICITED RESULTS Final Result [facility] [address] [place] [address], [place] [phone] * (ABNORMAL) POCT Glucose, blood (07/27/2024 4:34 PM EST) Glucose POCT 213(H) 70 - 100 mg/dL 07/27/2024 4:40 PM EST [facility] Blood Capillary blood specimen / Unknown 07/27/2024 4:34 PM EST 07/27/2024 4:41 PM EST us Jonny Mathur MD LAB POINT OF CARE TE ST DOCKED DEVICE UNSOLICITED RESULTS Final Result [facility] [address] [place] [address], [place] [phone] * (ABNORMAL) Complete blood count (07/27/2024 3:25 PM EST) WBC 17.5(H) 4.8 - 10.8 K/mcL LAB HEMETOLOGY METHOD 07/27/2024 3:46 PM EST [facility] RBC 3.30(L) 3.80 - 4.80 M/mcL LAB HEMETOLOGY METHOD 07/27/2024 3:46 PM [facility] Hemoglobin 8.3(L) 11.5 - 16.0 g/dL LAB HEMETOLOGY METHOD 07/27/2024 3:46 PM [facility] Hematocrit 27.7(L) 35.0 - 47.0 % LAB HEMETOLOGY METHOD 07/27/2024 3:46 PM [facility] MCV 83.7 79.0 - 98.0 FL LAB HEMETOLOGY METHOD 07/27/2024 3:46 PM [facility] MCH 25.1(L) 27.0 - 32.0 pcg LAB HEMETOLOGY METHOD 07/27/2024 3:46 PM [facility] MCHC 30.0(L) 32.0 - 37.0 g/dL LAB HEMETOLOGY METHOD 07/27/2024 3:46 PM [facility] RDW 22.5(H) 11.0 - 15.0 % LAB HEMETOLOGY METHOD 07/27/2024 3:46 PM [facility] Platelets 147 130 - 400 K/mcL LAB HEMETOLOGY METHOD 07/27/2024 3:46 PM [facility] MPV 10.8 7.0 - 11.0 FL LAB HEMETOLOGY METHOD 07/27/2024 3:46 PM EST [facility] NRBC 0.0 <1.0 % LAB HEMETOLOGY METHOD 07/27/2024 3:46 PM EST [facility] NRBC Absolute 0.00 <0.10 K/mcL LAB HEMETOLOGY METHOD 07/27/2024 3:46 PM EST [facility] Blood Venous blood specimen / Unknown Venipuncture / Unknown 07/27/2024 3:25 PM EST 07/27/2024 3:29 PM EST Jonny Mathur MD LAB BLOOD ORDERABLES Final Re sult Performing Organization Address [facility]/ZIP Co de Phone Number [facility] [address] [place] [address], [place] [phone] * (ABNORMAL) Heparin and low molecular weight anti Xa level (07/27/2024 1:42 PM EST) Heparin Anti-Xa <0.04(L) 0.30 - 0.70 I Unit/mL LAB COAGULATION METHOD 07/27/2024 2:08 PM EST [facility] Blood Venous blood specimen / Unknown Venipuncture / Unknown 07/27/2024 1:42 PM EST 07/27/2024 1:52 PM EST Narrative [facility] - 07/27/2024 2:08 PM EST Therapeutic range listed is for Unfractionated Heparin. LMW Heparin therapeutic range: 0.50-1.20 IU/mL us Jonny Mathur MD LAB BLOOD ORDERABLES Final Re sult Performing Organization Address City/[facility]/ZIP Co de Phone Number [facility] [address] [place] [address], [place] [phone] * (ABNORMAL) Basic metabolic panel (07/27/2024 1:42 PM EST) Sodium 131(L) 133 - 145 mmol/L LAB CHEMISTRY METHOD 07/27/2024 2:30 PM [facility] Potassium 3.8 3.5 - 5.5 mmol/L LAB CHEMISTRY METHOD 07/27/2024 2:30 PM [facility] Chloride 97 96 - 110 mmol/L LAB CHEMISTRY METHOD 07/27/2024 2:30 PM [facility] CO2 28 21 - 32 mmol/L LAB CHEMISTRY METHOD 07/27/2024 2:30 PM [facility] Anion Gap 6 3 - 11 LAB CHEMISTRY METHOD 07/27/2024 2:30 PM [facility] Glucose 150(H) 70 - 100 mg/dL LAB CHEMISTRY METHOD 07/27/2024 2:30 PM [facility] BUN 17 5 - 25 mg/dL LAB CHEMISTRY METHOD 07/27/2024 2:30 PM [facility] Creatinine 1.53(H) 0.50 - 1.10 mg/dL LAB CHEMISTRY METHOD 07/27/2024 2:30 PM [facility] eGFR 34(L) >=60 mL/min/1. 73m2 LAB CHEMISTRY METHOD 07/27/2024 2:30 PM [facility] Comment:Calculation based on the??Chronic Kidney Disease Epidemiology Collaboration (CKD-EPI) equation refit??without adjustment for race. BUN/Creatinine Ratio 11.1 LAB CHEMISTRY METHOD 07/27/2024 2:30 PM [facility] Calcium 7.9(L) 8.5 - 10.5 mg/dL LAB CHEMISTRY METHOD 07/27/2024 2:30 PM [facility] Blood Venous blood specimen / Unknown Venipuncture / Unknown 07/27/2024 1:42 PM EST 07/27/2024 1:52 PM EST us Jonny Mathur MD LAB BLOOD ORDERABLES Final Re sult Performing Organization Address City/[facility]/ZIP Co de Phone Number [facility] [address] [place] [address], [place] [phone] * (ABNORMAL) POCT Glucose, blood (07/27/2024 11:54 AM EST) Glucose POCT 126(H) 70 - 100 mg/dL 07/27/2024 11:57 AM EST [facility] Blood Capillary blood specimen / Unknown 07/27/2024 11:54 AM EST 07/27/2024 11:58 AM EST Jonny Mathur MD LAB POINT OF CARE TE ST DOCKED DEVICE UNSOLICITED RESULTS Final Result Performing Organization Address [facility]/ZIP Co de Phone Number [facility] [address] [place] [address], [place] [phone] * (ABNORMAL) CBC auto differential (07/27/2024 6:27 AM EST) Pathologist [facility] WBC 12.4(H) 4.8 - 10.8 K/mcL LAB HEMETOLOGY METHOD 07/27/2024 7:55 AM [facility] RBC 3.10(L) 3.80 - 4.80 M/mcL LAB HEMETOLOGY METHOD 07/27/2024 7:55 AM [facility] Hemoglobin 7.7(L) 11.5 - 16.0 g/dL LAB HEMETOLOGY METHOD 07/27/2024 7:55 AM [facility] Hematocrit 25.5(L) 35.0 - 47.0 % LAB HEMETOLOGY METHOD 07/27/2024 7:55 AM [facility] MCV 83.3 79.0 - 98.0 FL LAB HEMETOLOGY METHOD 07/27/2024 7:55 AM [facility] MCH 25.2(L) 27.0 - 32.0 pcg LAB HEMETOLOGY METHOD 07/27/2024 7:55 AM [facility] MCHC 30.2(L) 32.0 - 37.0 g/dL LAB HEMETOLOGY METHOD 07/27/2024 7:55 AM [facility] RDW 22.4(H) 11.0 - 15.0 % LAB HEMETOLOGY METHOD 07/27/2024 7:55 AM [facility] Platelets 143 130 - 400 K/mcL LAB HEMETOLOGY METHOD 07/27/2024 7:55 AM [facility] MPV 11.2(H) 7.0 - 11.0 FL LAB HEMETOLOGY METHOD 07/27/2024 7:55 AM [facility] NRBC 0.0 <1.0 % LAB HEMETOLOGY METHOD 07/27/2024 7:55 AM [facility] NRBC Absolute 0.00 <0.10 K/mcL LAB HEMETOLOGY METHOD 07/27/2024 7:55 AM [facility] Neutrophils Relative 82.8 % LAB HEMETOLOGY METHOD 07/27/2024 7:55 AM [facility] Lymphocytes Relative 10.0 % LAB HEMETOLOGY METHOD 07/27/2024 7:55 AM [facility] Monocytes Relative 4.8 % LAB HEMETOLOGY METHOD 07/27/2024 7:55 AM [facility] Eosinophils Relative 0.8 % LAB HEMETOLOGY METHOD 07/27/2024 7:55 AM [facility] Basophils Relative 0.1 % LAB HEMETOLOGY METHOD 07/27/2024 7:55 AM [facility] Immature Granulocytes Relative 1.5 % LAB HEMETOLOGY METHOD 07/27/2024 7:55 AM [facility] Neutrophils Absolute 10.27(H) 1.50 - 7.00 K/[facility] LAB HEMETOLOGY METHOD 07/27/2024 7:55 AM EST [facility] Lymphocytes Absolute 1.24 1.00 - 5.00 K/[facility] LAB HEMETOLOGY METHOD 07/27/2024 7:55 AM EST [facility] Monocytes Absolute 0.59 0.20 - 1.00 K/[facility] LAB HEMETOLOGY METHOD 07/27/2024 7:55 AM EST [facility] Eosinophils Absolute 0.10 0.00 - 0.50 K/[facility] LAB HEMETOLOGY METHOD 07/27/2024 7:55 AM EST [facility] Basophils Absolute 0.01 0.00 - 0.20 K/[facility] LAB HEMETOLOGY METHOD 07/27/2024 7:55 AM [facility] Immature Granulocytes Absolute 0.19(H) 0.00 - 0.03 K/[facility] LAB HEMETOLOGY METHOD 07/27/2024 7:55 AM EST [facility] Blood Venous blood specimen / Unknown Venipuncture / Unknown 07/27/2024 6:27 AM EST 07/27/2024 7:41 AM EST Jonny Mathur MD LAB BLOOD ORDERABLES Final Re sult [facility] [address] [place] [address], * (ABNORMAL) Heparin and low molecular weight anti Xa level (07/27/2024 6:27 AM EST) Heparin Anti-Xa 0.74(H) 0.30 - 0.70 I Unit/mL LAB COAGULATION METHOD 07/27/2024 8:11 AM EST [facility] Blood Venous blood specimen / Unknown Venipuncture / Unknown 07/27/2024 6:27 AM EST 07/27/2024 7:41 AM EST [facility] - 07/27/2024 8:11 AM EST Therapeutic range listed is for Unfractionated Heparin. LMW Heparin therapeutic range: 0.50-1.20 IU/mL us Jonny Mathur MD LAB BLOOD ORDERABLES Final Re sult [facility] [address] [place] [address], * (ABNORMAL) CBC - Every 3 Days (07/27/2024 6:27 AM EST) WBC 12.4(H) 4.8 - 10.8 K/mcL LAB HEMETOLOGY METHOD 07/27/2024 7:55 AM [facility] RBC 3.10(L) 3.80 - 4.80 M/mcL LAB HEMETOLOGY METHOD 07/27/2024 7:55 AM [facility] Hemoglobin 7.7(L) 11.5 - 16.0 g/dL LAB HEMETOLOGY METHOD 07/27/2024 7:55 AM [facility] Hematocrit 25.5(L) 35.0 - 47.0 % LAB HEMETOLOGY METHOD 07/27/2024 7:55 AM [facility] MCV 83.3 79.0 - 98.0 FL LAB HEMETOLOGY METHOD 07/27/2024 7:55 AM [facility] MCH 25.2(L) 27.0 - 32.0 pcg LAB HEMETOLOGY METHOD 07/27/2024 7:55 AM [facility] MCHC 30.2(L) 32.0 - 37.0 g/dL LAB HEMETOLOGY METHOD 07/27/2024 7:55 AM [facility] RDW 22.4(H) 11.0 - 15.0 % LAB HEMETOLOGY METHOD 07/27/2024 7:55 AM [facility] Platelets 143 130 - 400 K/mcL LAB HEMETOLOGY METHOD 07/27/2024 7:55 AM EST [facility] MPV 11.2(H) 7.0 - 11.0 FL LAB HEMETOLOGY METHOD 07/27/2024 7:55 AM EST [facility] NRBC 0.0 <1.0 % LAB HEMETOLOGY METHOD 07/27/2024 7:55 AM EST [facility] NRBC Absolute 0.00 <0.10 K/mcL LAB HEMETOLOGY METHOD 07/27/2024 7:55 AM [facility] Blood Venous blood specimen / Unknown Venipuncture / Unknown 07/27/2024 6:27 AM EST 07/27/2024 7:41 AM EST Lencho Stuart MD LAB BLOOD ORDERABLES Final R esult [facility] [address] [place] [address], * (ABNORMAL) Basic metabolic panel (07/27/2024 6:27 AM EST) Sodium 130(L) 133 - 145 mmol/L LAB CHEMISTRY METHOD 07/27/2024 8:43 AM [facility] Potassium 4.2 3.5 - 5.5 mmol/L LAB CHEMISTRY METHOD 07/27/2024 8:43 AM [facility] Chloride 93(L) 96 - 110 mmol/L LAB CHEMISTRY METHOD 07/27/2024 8:43 AM [facility] CO2 30 21 - 32 mmol/L LAB CHEMISTRY METHOD 07/27/2024 8:43 AM [facility] Anion Gap 7 3 - 11 LAB CHEMISTRY METHOD 07/27/2024 8:43 AM [facility] Glucose 182(H) 70 - 100 mg/dL LAB CHEMISTRY METHOD 07/27/2024 8:43 AM [facility] BUN 62(H) 5 - 25 mg/dL LAB CHEMISTRY METHOD 07/27/2024 8:43 AM [facility] Creatinine 3.88(H) 0.50 - 1.10 mg/dL LAB CHEMISTRY METHOD 07/27/2024 8:43 AM [facility] eGFR 11(L) >=60 mL/min/1. 73m2 LAB CHEMISTRY METHOD 07/27/2024 8:43 AM [facility] Comment:Calculation based on the??Chronic Kidney Disease Epidemiology Collaboration (CKD-EPI) equation refit??without adjustment for race. BUN/Creatinine Ratio 16.0 LAB CHEMISTRY METHOD 07/27/2024 8:43 AM [facility] Calcium 8.2(L) 8.5 - 10.5 mg/dL LAB CHEMISTRY METHOD 07/27/2024 8:43 AM [facility] Blood Venous blood specimen / Unknown Venipuncture / Unknown 07/27/2024 6:27 AM EST 07/27/2024 7:41 AM EST us Jonny Mathur MD LAB BLOOD ORDERABLES Final Re sult Performing Organization Address [facility]/ZIP Co de Phone Number [facility] [address] [place] [address], * (ABNORMAL) POCT Glucose, blood (07/26/2024 8:23 PM EST) Glucose POCT 189(H) 70 - 100 mg/dL 07/26/2024 8:24 PM EST [facility] Blood Capillary blood specimen / Unknown 07/26/2024 8:23 PM EST 07/26/2024 8:25 PM EST us Jonny Mathur MD LAB POINT OF CARE TE ST DOCKED DEVICE UNSOLICITED RESULTS Final Result [facility] [address] [place] [address], [place] [phone] * (ABNORMAL) POCT Glucose, blood (07/26/2024 4:28 PM EST) Glucose POCT 192(H) 70 - 100 mg/dL 07/26/2024 4:29 PM EST [facility] Blood Capillary blood specimen / Unknown 07/26/2024 4:28 PM EST 07/26/2024 4:30 PM EST us Jonny Mathur MD LAB POINT OF CARE TE ST DOCKED DEVICE UNSOLICITED RESULTS Final Result Performing Organization Address [facility]/ZIP Co de Phone Number [facility] [address] [place] [address], [place] [phone] * (ABNORMAL) POCT Glucose, blood (07/26/2024 11:15 AM EST) Glucose POCT 180(H) 70 - 100 mg/dL 07/26/2024 11:17 AM EST [facility] Blood Capillary blood specimen / Unknown 07/26/2024 11:15 AM EST 07/26/2024 11:18 AM EST us Jonny Mathur MD LAB POINT OF CARE TE ST DOCKED DEVICE UNSOLICITED RESULTS Final Result Performing Organization Address [facility]/ZIP Co de Phone Number [facility] [address] [place] [address], [place] [phone] * (ABNORMAL) POCT Glucose, blood (07/26/2024 8:08 AM EST) Glucose POCT 128(H) 70 - 100 mg/dL 07/26/2024 8:09 AM EST [facility] Blood Capillary blood specimen / Unknown 07/26/2024 8:08 AM EST 07/26/2024 8:10 AM EST Jonny Mathur MD LAB POINT OF CARE TE ST DOCKED DEVICE UNSOLICITED RESULTS Final Result Performing Organization Address [facility]/ZIP Co de Phone Number [facility] [address] [place] [address], [place] [phone] * Heparin and low molecular weight anti Xa level (07/26/2024 6:06 AM EST) [facility] Heparin Anti-Xa 0.65 0.30 - 0.70 I Unit/mL LAB COAGULATION METHOD 07/26/2024 7:08 AM EST [facility] Blood Venous blood specimen / Unknown Venipuncture / Unknown 07/26/2024 6:06 AM EST 07/26/2024 6:19 AM EST Narrative [facility] - 07/26/2024 7:08 AM EST Therapeutic range listed is for Unfractionated Heparin. LMW Heparin therapeutic range: 0.50-1.20 IU/mL us Jonny Mathur MD LAB BLOOD ORDERABLES Final Re sult Performing Organization Address [facility]/ZIP Co de Phone Number [facility] [address] [place] [address], [place] [phone] * (ABNORMAL) POCT Glucose, blood (07/25/2024 9:22 PM EST) [facility] Glucose POCT 183(H) 70 - 100 mg/dL 07/25/2024 9:22 PM EST [facility] Blood Capillary blood specimen / Unknown 07/25/2024 9:22 PM EST 07/25/2024 9:23 PM EST us Jonny Mathur MD LAB POINT OF CARE TE ST DOCKED DEVICE UNSOLICITED RESULTS Final Result Performing Organization Address City/[facility]/ZIP Co de Phone Number [facility] [address] [place] [address], [place] [phone] * (ABNORMAL) POCT Glucose, blood (07/25/2024 4:02 PM EST) Glucose POCT 194(H) 70 - 100 mg/dL 07/25/2024 4:02 PM EST [facility] Blood Capillary blood specimen / Unknown 07/25/2024 4:02 PM EST 07/25/2024 4:03 PM EST us Jonny Mathur MD LAB POINT OF CARE TE ST DOCKED DEVICE UNSOLICITED RESULTS Final Result [facility] [address] [place] [address], [place] [phone] * (ABNORMAL) POCT Glucose, blood (07/25/2024 2:56 PM EST) Glucose POCT 143(H) 70 - 100 mg/dL 07/25/2024 2:56 PM EST [facility] Blood Capillary blood specimen / Unknown 07/25/2024 2:56 PM EST 07/25/2024 2:58 PM EST us Jonny Mathur MD LAB POINT OF CARE TE ST DOCKED DEVICE UNSOLICITED RESULTS Final Result [facility] [address] [place] [address], [place] [phone] * (ABNORMAL) POCT Glucose, blood (07/25/2024 8:18 AM EST) Glucose POCT 212(H) 70 - 100 mg/dL 07/25/2024 8:19 AM EST [facility] Blood Capillary blood specimen / Unknown 07/25/2024 8:18 AM EST 07/25/2024 8:20 AM EST us Jonny Mathur MD LAB POINT OF CARE TE ST DOCKED DEVICE UNSOLICITED RESULTS Final Result [facility] [address] [place] [address], * (ABNORMAL) CBC auto differential (07/25/2024 5:35 AM EST) WBC 14.2(H) 4.8 - 10.8 K/mcL LAB HEMETOLOGY METHOD 07/25/2024 7:21 AM [facility] RBC 3.10(L) 3.80 - 4.80 M/mcL LAB HEMETOLOGY METHOD 07/25/2024 7:21 AM [facility] Hemoglobin 8.0(L) 11.5 - 16.0 g/dL LAB HEMETOLOGY METHOD 07/25/2024 7:21 AM [facility] Hematocrit 25.7(L) 35.0 - 47.0 % LAB HEMETOLOGY METHOD 07/25/2024 7:21 AM [facility] MCV 82.1 79.0 - 98.0 FL LAB HEMETOLOGY METHOD 07/25/2024 7:21 AM [facility] MCH 25.6(L) 27.0 - 32.0 pcg LAB HEMETOLOGY METHOD 07/25/2024 7:21 AM [facility] LAB MCHC 31.1(L) 32.0 - 37.0 g/dL LAB HEMETOLOGY METHOD 07/25/2024 7:21 AM [facility] RDW 21.7(H) 11.0 - 15.0 % LAB HEMETOLOGY METHOD 07/25/2024 7:21 AM [facility] LAB Platelets 158 130 - 400 K/mcL LAB HEMETOLOGY METHOD 07/25/2024 7:21 AM [facility] MPV 10.6 7.0 - 11.0 FL LAB HEMETOLOGY METHOD 07/25/2024 7:21 AM [facility] NRBC 0.0 <1.0 % LAB HEMETOLOGY METHOD 07/25/2024 7:21 AM [facility] NRBC Absolute 0.00 <0.10 K/mcL LAB HEMETOLOGY METHOD 07/25/2024 7:21 AM [facility] Neutrophils Relative 83.3 % LAB HEMETOLOGY METHOD 07/25/2024 7:21 AM [facility] Lymphocytes Relative 8.9 % LAB HEMETOLOGY METHOD 07/25/2024 7:21 AM [facility] Monocytes Relative 6.3 % LAB HEMETOLOGY METHOD 07/25/2024 7:21 AM [facility] Eosinophils Relative 0.6 % LAB HEMETOLOGY METHOD 07/25/2024 7:21 AM [facility] Basophils Relative 0.1 % LAB HEMETOLOGY METHOD 07/25/2024 7:21 AM [facility] Immature Granulocytes Relative 0.8 % LAB HEMETOLOGY METHOD 07/25/2024 7:21 AM [facility] Neutrophils Absolute 11.87(H) 1.50 - 7.00 K/mcL LAB HEMETOLOGY METHOD 07/25/2024 7:21 AM [facility] Lymphocytes Absolute 1.26 1.00 - 5.00 K/mcL LAB HEMETOLOGY METHOD 07/25/2024 7:21 AM [facility] Monocytes Absolute 0.89 0.20 - 1.00 K/mcL LAB HEMETOLOGY METHOD 07/25/2024 7:21 AM [facility] Eosinophils Absolute 0.08 0.00 - 0.50 K/mcL LAB HEMETOLOGY METHOD 07/25/2024 7:21 AM [facility] Basophils Absolute 0.01 0.00 - 0.20 K/mcL LAB HEMETOLOGY METHOD 07/25/2024 7:21 AM EST [facility] Immature Granulocytes Absolute 0.11(H) 0.00 - 0.03 K/[facility] LAB HEMETOLOGY METHOD 07/25/2024 7:21 AM EST [facility] Blood Venous blood specimen / Unknown Venipuncture / Unknown 07/25/2024 5:35 AM EST 07/25/2024 6:48 AM EST Lencho Stuart MD LAB BLOOD ORDERABLES Final R esult Performing Organization Address City/[facility]/ZIP Co de Phone Number [facility] [address] [place] [address], [place] [phone] * Heparin and low molecular weight anti Xa level (07/25/2024 5:35 AM EST) Heparin Anti-Xa 0.61 0.30 - 0.70 I Unit/mL LAB COAGULATION METHOD 07/25/2024 7:17 AM EST [facility] Blood Venous blood specimen / Unknown Venipuncture / Unknown 07/25/2024 5:35 AM EST 07/25/2024 6:48 AM EST Narrative [facility] - 07/25/2024 7:17 AM EST Therapeutic range listed is for Unfractionated Heparin. LMW Heparin therapeutic range: 0.50-1.20 IU/mL Lencho Stuart MD LAB BLOOD ORDERABLES Final R esult [facility] [address] [place] [address], [place] [phone] * (ABNORMAL) Basic metabolic panel (07/25/2024 5:35 AM EST) Sodium 132(L) 133 - 145 mmol/L LAB CHEMISTRY METHOD 07/25/2024 7:57 AM [facility] Potassium 4.2 3.5 - 5.5 mmol/L LAB CHEMISTRY METHOD 07/25/2024 7:57 AM [facility] Chloride 94(L) 96 - 110 mmol/L LAB CHEMISTRY METHOD 07/25/2024 7:57 AM [facility] CO2 30 21 - 32 mmol/L LAB CHEMISTRY METHOD 07/25/2024 7:57 AM [facility] Anion Gap 8 3 - 11 LAB CHEMISTRY METHOD 07/25/2024 7:57 AM [facility] Glucose 194(H) 70 - 100 mg/dL LAB CHEMISTRY METHOD 07/25/2024 7:57 AM [facility] BUN 77(H) 5 - 25 mg/dL LAB CHEMISTRY METHOD 07/25/2024 7:57 AM [facility] Creatinine 3.91(H) 0.50 - 1.10 mg/dL LAB CHEMISTRY METHOD 07/25/2024 7:57 AM [facility] eGFR 11(L) >=60 mL/min/1. 73m2 LAB CHEMISTRY METHOD 07/25/2024 7:57 AM [facility] Comment:Calculation based on the??Chronic Kidney Disease Epidemiology Collaboration (CKD-EPI) equation refit??without adjustment for race. BUN/Creatinine Ratio 19.7 LAB CHEMISTRY METHOD 07/25/2024 7:57 AM [facility] Calcium 8.2(L) 8.5 - 10.5 mg/dL LAB CHEMISTRY METHOD 07/25/2024 7:57 AM [facility] Blood Venous blood specimen / Unknown Venipuncture / Unknown 07/25/2024 5:35 AM EST 07/25/2024 6:48 AM EST us [facility] LAB BLOOD ORDERABLES Final R esult [facility] [address] [place] [address], [place] [phone] * (ABNORMAL) POCT Glucose, blood (07/24/2024 7:58 PM EST) Glucose POCT 228(H) 70 - 100 mg/dL 07/24/2024 7:58 PM EST [facility] Blood Capillary blood specimen / Unknown 07/24/2024 7:58 PM EST 07/24/2024 8:00 PM EST us Lencho Stuart MD LAB POINT OF CARE TE ST DOCKED DEVICE UNSOLICITED RESULTS Final Result Performing Organization Address City/[facility]/ZIP Co de Phone Number [facility] [address] [place] [address], [place] [phone] * (ABNORMAL) POCT Glucose, blood (07/24/2024 3:24 PM EST) Glucose POCT 239(H) 70 - 100 mg/dL 07/24/2024 3:25 PM EST [facility] POCT Comment RN Notified 07/24/2024 3:25 PM EST [facility] Blood Capillary blood specimen / Unknown 07/24/2024 3:24 PM EST 07/24/2024 3:26 PM EST us Lencho Stuart MD LAB POINT OF CARE TE ST DOCKED DEVICE UNSOLICITED RESULTS Final Result [facility] [address] [place] [address], [place] [phone] * (ABNORMAL) POCT Glucose, blood (07/24/2024 11:39 AM EST) Glucose POCT 260(H) 70 - 100 mg/dL 07/24/2024 11:40 AM EST [facility] POCT Comment RN Notified 07/24/2024 11:40 AM EST [facility] Blood Capillary blood specimen / Unknown 07/24/2024 11:39 AM EST 07/24/2024 11:41 AM EST us Lencho Stuart MD LAB POINT OF CARE TE ST DOCKED DEVICE UNSOLICITED RESULTS Final Result Performing Organization Address [facility]/ZIP Co de Phone Number [facility] [address] [place] [address], [place] [phone] * (ABNORMAL) POCT Glucose, blood (07/24/2024 7:32 AM EST) Glucose POCT 301(H) 70 - 100 mg/dL 07/24/2024 7:33 AM EST [facility] POCT Comment RN Notified 07/24/2024 7:33 AM EST [facility] Blood Capillary blood specimen / Unknown 07/24/2024 7:32 AM EST 07/24/2024 7:34 AM EST us Lencho Stuart MD LAB POINT OF CARE TE ST DOCKED DEVICE UNSOLICITED RESULTS Final Result Performing Organization Address [facility] Co de Phone Number [facility] [address] [place] [address], [place] [phone] * Heparin and low molecular weight anti Xa level (07/24/2024 6:48 AM EST) Heparin Anti-Xa 0.60 0.30 - 0.70 I Unit/mL LAB COAGULATION METHOD 07/24/2024 7:29 AM EST [facility] Blood Venous blood specimen / Unknown Venipuncture / Unknown 07/24/2024 6:48 AM EST 07/24/2024 7:03 AM EST [facility] - 07/24/2024 7:29 AM EST Therapeutic range listed is for Unfractionated Heparin. LMW Heparin therapeutic range: 0.50-1.20 IU/mL Lencho Stuart MD LAB BLOOD ORDERABLES Final R esult [facility] [address] [place] [address], * (ABNORMAL) CBC auto differential (07/24/2024 6:48 AM EST) Pathologist [facility] WBC 13.1(H) 4.8 - 10.8 K/mcL LAB HEMETOLOGY METHOD 07/24/2024 7:30 AM [facility] RBC 3.10(L) 3.80 - 4.80 M/mcL LAB HEMETOLOGY METHOD 07/24/2024 7:30 AM [facility] Hemoglobin 7.7(L) 11.5 - 16.0 g/dL LAB HEMETOLOGY METHOD 07/24/2024 7:30 AM [facility] Hematocrit 25.3(L) 35.0 - 47.0 % LAB HEMETOLOGY METHOD 07/24/2024 7:30 AM [facility] MCV 81.4 79.0 - 98.0 FL LAB HEMETOLOGY METHOD 07/24/2024 7:30 AM [facility] MCH 24.8(L) 27.0 - 32.0 pcg LAB HEMETOLOGY METHOD 07/24/2024 7:30 AM [facility] MCHC 30.4(L) 32.0 - 37.0 g/dL LAB HEMETOLOGY METHOD 07/24/2024 7:30 AM [facility] RDW 21.7(H) 11.0 - 15.0 % LAB HEMETOLOGY METHOD 07/24/2024 7:30 AM [facility] Platelets 174 130 - 400 K/mcL LAB HEMETOLOGY METHOD 07/24/2024 7:30 AM [facility] MPV 10.6 7.0 - 11.0 FL LAB HEMETOLOGY METHOD 07/24/2024 7:30 AM [facility] NRBC 0.0 <1.0 % LAB HEMETOLOGY METHOD 07/24/2024 7:30 AM [facility] NRBC Absolute 0.00 <0.10 K/mcL LAB HEMETOLOGY METHOD 07/24/2024 7:30 AM [facility] Neutrophils Relative 84.4 % LAB HEMETOLOGY METHOD 07/24/2024 7:30 AM [facility] Lymphocytes Relative 6.4 % LAB HEMETOLOGY METHOD 07/24/2024 7:30 AM [facility] Monocytes Relative 8.3 % LAB HEMETOLOGY METHOD 07/24/2024 7:30 AM [facility] Eosinophils Relative 0.0 % LAB HEMETOLOGY METHOD 07/24/2024 7:30 AM [facility] Basophils Relative 0.1 % LAB HEMETOLOGY METHOD 07/24/2024 7:30 AM [facility] Immature Granulocytes Relative 0.8 % LAB HEMETOLOGY METHOD 07/24/2024 7:30 AM [facility] Neutrophils Absolute 11.03(H) 1.50 - 7.00 K/mcL LAB HEMETOLOGY METHOD 07/24/2024 7:30 AM [facility] Lymphocytes Absolute 0.83(L) 1.00 - 5.00 K/mcL LAB HEMETOLOGY METHOD 07/24/2024 7:30 AM [facility] Monocytes Absolute 1.08(H) 0.20 - 1.00 K/mcL LAB HEMETOLOGY METHOD 07/24/2024 7:30 AM [facility] Eosinophils Absolute 0.00 0.00 - 0.50 K/mcL LAB HEMETOLOGY METHOD 07/24/2024 7:30 AM EST [facility] Basophils Absolute 0.01 0.00 - 0.20 K/[facility] LAB HEMETOLOGY METHOD 07/24/2024 7:30 AM EST [facility] Immature Granulocytes Absolute 0.11(H) 0.00 - 0.03 K/[facility] LAB HEMETOLOGY METHOD 07/24/2024 7:30 AM [facility] Blood Venous blood specimen / Unknown Venipuncture / Unknown 07/24/2024 6:48 AM EST 07/24/2024 7:03 AM EST [facility] LAB BLOOD ORDERABLES Final R esult [facility] [address] [place] [address], * (ABNORMAL) CBC - Every 3 Days (07/24/2024 6:48 AM EST) WBC 13.1(H) 4.8 - 10.8 K/[facility] LAB HEMETOLOGY METHOD 07/24/2024 7:30 AM [facility] RBC 3.10(L) 3.80 - 4.80 M/[facility] LAB HEMETOLOGY METHOD 07/24/2024 7:30 AM [facility] Hemoglobin 7.7(L) 11.5 - 16.0 g/dL LAB HEMETOLOGY METHOD 07/24/2024 7:30 AM [facility] Hematocrit 25.3(L) 35.0 - 47.0 % LAB HEMETOLOGY METHOD 07/24/2024 7:30 AM [facility] MCV 81.4 79.0 - 98.0 FL LAB HEMETOLOGY METHOD 07/24/2024 7:30 AM [facility] MCH 24.8(L) 27.0 - 32.0 pcg LAB HEMETOLOGY METHOD 07/24/2024 7:30 AM EST [facility] MCHC 30.4(L) 32.0 - 37.0 g/dL LAB HEMETOLOGY METHOD 07/24/2024 7:30 AM EST [facility] RDW 21.7(H) 11.0 - 15.0 % LAB HEMETOLOGY METHOD 07/24/2024 7:30 AM EST [facility] Platelets 174 130 - 400 K/mcL LAB HEMETOLOGY METHOD 07/24/2024 7:30 AM EST [facility] MPV 10.6 7.0 - 11.0 FL LAB HEMETOLOGY METHOD 07/24/2024 7:30 AM EST [facility] NRBC 0.0 <1.0 % LAB HEMETOLOGY METHOD 07/24/2024 7:30 AM EST [facility] NRBC Absolute 0.00 <0.10 K/mcL LAB HEMETOLOGY METHOD 07/24/2024 7:30 AM [facility] Blood Venous blood specimen / Unknown Venipuncture / Unknown 07/24/2024 6:48 AM EST 07/24/2024 7:03 AM EST [facility] LAB BLOOD ORDERABLES Final R esult [facility] [address] [place] [address], * (ABNORMAL) Basic metabolic panel (07/24/2024 6:48 AM EST) Sodium 132(L) 133 - 145 mmol/L LAB CHEMISTRY METHOD 07/24/2024 8:38 AM EST [facility] Potassium 4.1 3.5 - 5.5 mmol/L LAB CHEMISTRY METHOD 07/24/2024 8:38 AM EST [facility] Chloride 94(L) 96 - 110 mmol/L LAB CHEMISTRY METHOD 07/24/2024 8:38 AM [facility] CO2 29 21 - 32 mmol/L LAB CHEMISTRY METHOD 07/24/2024 8:38 AM [facility] Anion Gap 9 3 - 11 LAB CHEMISTRY METHOD 07/24/2024 8:38 AM [facility] Glucose 286(H) 70 - 100 mg/dL LAB CHEMISTRY METHOD 07/24/2024 8:38 AM [facility] BUN 54(H) 5 - 25 mg/dL LAB CHEMISTRY METHOD 07/24/2024 8:38 AM [facility] Creatinine 2.84(H) 0.50 - 1.10 mg/dL LAB CHEMISTRY METHOD 07/24/2024 8:38 AM [facility] eGFR 16(L) >=60 mL/min/1. 73m2 LAB CHEMISTRY METHOD 07/24/2024 8:38 AM [facility] LAB Comment:Calculation based on the??Chronic Kidney Disease Epidemiology Collaboration (CKD-EPI) equation refit??without adjustment for race. BUN/Creatinine Ratio 19.0 LAB CHEMISTRY METHOD 07/24/2024 8:38 AM [facility] Calcium 8.0(L) 8.5 - 10.5 mg/dL LAB CHEMISTRY METHOD 07/24/2024 8:38 AM [facility] Blood Venous blood specimen / Unknown Venipuncture / Unknown 07/24/2024 6:48 AM EST 07/24/2024 7:03 AM EST us Lencho Stuart MD LAB BLOOD ORDERABLES Final R esult [facility] [address] [place] [address], * Heparin and low molecular weight anti Xa level (07/24/2024 12:07 AM EST) Heparin Anti-Xa 0.69 0.30 - 0.70 I Unit/mL LAB COAGULATION METHOD 07/24/2024 12:28 AM EST [facility] Blood Venous blood specimen / Unknown Venipuncture / Unknown 07/24/2024 12:07 AM EST 07/24/2024 12:17 AM EST Narrative [facility] - 07/24/2024 12:28 AM EST Therapeutic range listed is for Unfractionated Heparin. LMW Heparin therapeutic range: 0.50-1.20 IU/mL us Lencho Stuart MD LAB BLOOD ORDERABLES Final R esult [facility] [address] [place] [address], [place] [phone] * (ABNORMAL) POCT Glucose, blood (07/23/2024 7:35 PM EST) [facility] Glucose POCT 320(H) 70 - 100 mg/dL 07/23/2024 7:35 PM EST [facility] Blood Capillary blood specimen / Unknown 07/23/2024 7:35 PM EST 07/23/2024 7:37 PM EST us Lencho Stuart MD LAB POINT OF CARE TE ST DOCKED DEVICE UNSOLICITED RESULTS Final Result [facility] [address] [place] [address], [place] [phone] * Transfuse RBC (07/23/2024 6:19 PM EST) [...] Insertion of 18g/10cm [employer] Powerglide midline Lot: [id number] Exp: 2025-05-28 Indications: ??Difficult draw with frequent [...] POCT Glucose, blood (07/23/2024 4:30 PM EST) [facility] Glucose POCT 248(H) 70 - 100 mg/dL 07/23/2024 4:31 PM EST [facility] Blood Capillary blood specimen / Unknown 07/23/2024 4:30 PM EST 07/23/2024 4:32 PM EST Lencho Stuart MD LAB POINT OF CARE TE ST DOCKED DEVICE UNSOLICITED RESULTS Final Result [facility] [address] [place] [address], [place] [phone] * (ABNORMAL) Heparin and low molecular weight anti Xa level (07/23/2024 4:08 PM EST) Pathologist [facility] Heparin Anti-Xa 0.82(H) 0.30 - 0.70 I Unit/mL LAB COAGULATION METHOD 07/23/2024 4:33 PM EST [facility] Blood Venous blood specimen / Unknown Venipuncture / Unknown 07/23/2024 4:08 PM EST 07/23/2024 4:24 PM EST Narrative [facility] - 07/23/2024 4:33 PM EST Therapeutic range listed is for Unfractionated Heparin. LMW Heparin therapeutic range: 0.50-1.20 IU/mL us Lencho Stuart MD LAB BLOOD ORDERABLES Final R esult Performing Organization Address City/[facility]/ZIP Co de Phone Number [facility] [address] [place] [address], [place] [phone] * Type and screen (07/23/2024 12:31 PM EST) ABO Group O 07/23/2024 2:33 PM EST [facility] Rh Type Positive 07/23/2024 2:33 PM EST [facility] Antibody Screen Negative 07/23/2024 2:33 PM EST [facility] Blood Venous blood specimen / Unknown Venipuncture / Unknown 07/23/2024 12:31 PM EST 07/23/2024 12:50 PM EST us Lencho Stuart MD LAB BLOOD BANK TEST ORDERABL ES Final Result Performing Organization Address City/[facility]/ZIP Co de Phone Number [facility] [address] [place] [address], [place] [phone] * (ABNORMAL) POCT Glucose, blood (07/23/2024 12:12 PM EST) Glucose POCT 204(H) 70 - 100 mg/dL 07/23/2024 12:13 PM EST [facility] Blood Capillary blood specimen / Unknown 07/23/2024 12:12 PM EST 07/23/2024 12:14 PM EST us Lencho Stuart MD LAB POINT OF CARE TE ST DOCKED DEVICE UNSOLICITED RESULTS Final Result Performing Organization Address City/[facility]/ZIP Co de Phone Number [facility] [address] [place] [address], [place] [phone] * Prepare RBC: 1 Units (07/23/2024 11:14 AM EST) Product Code [id number] 07/23/2024 3:38 PM [facility] Unit Number [id number] 07/23/19 3:38 PM [facility] Crossmatch Compatible 07/23/2024 2:36 PM [facility] Dispense Status Transfused 07/23/2024 3:38 PM [facility] Unit ABO Rh OPOS 07/23/2024 3:38 PM [facility] Unit Expiration Date Time [id number] 07/23/2024 3:38 PM [facility] Unit Blood Type 5100 07/23/2024 3:38 PM [facility] Blood Venous blood specimen / Unknown 07/23/2024 11:14 AM EST 07/23/2024 12:50 PM EST us Lencho Stuart MD BLOOD BANK PRODUCT ORDERABLE S Final Result [facility] [address] [place] [address], [place] [phone] * (ABNORMAL) Heparin and low molecular weight anti Xa level (07/23/2024 8:40 AM EST) Heparin Anti-Xa 0.77(H) 0.30 - 0.70 I Unit/mL LAB COAGULATION METHOD 07/23/2024 9:05 AM [facility] Blood Venous blood specimen / Unknown Venipuncture / Unknown 07/23/2024 8:40 AM EST 07/23/2024 8:47 AM EST [facility] - 07/23/2024 9:05 AM EST Therapeutic range listed is for Unfractionated Heparin. LMW Heparin therapeutic range: 0.50-1.20 IU/mL [facility] LAB BLOOD ORDERABLES Final R esult [facility] [address] [place] [address], * (ABNORMAL) CBC auto differential (07/23/2024 5:44 AM EST) WBC 11.6(H) 4.8 - 10.8 K/mcL LAB HEMETOLOGY METHOD 07/23/2024 7:10 AM [facility] RBC 2.80(L) 3.80 - 4.80 M/mcL LAB HEMETOLOGY METHOD 07/23/2024 7:10 AM [facility] Hemoglobin 6.9(L) 11.5 - 16.0 g/dL LAB HEMETOLOGY METHOD 07/23/2024 7:10 AM [facility] Hematocrit 23.0(L) 35.0 - 47.0 % LAB HEMETOLOGY METHOD 07/23/2024 7:10 AM [facility] MCV 81.6 79.0 - 98.0 FL LAB HEMETOLOGY METHOD 07/23/2024 7:10 AM [facility] MCH 24.5(L) 27.0 - 32.0 pcg LAB HEMETOLOGY METHOD 07/23/2024 7:10 AM [facility] MCHC 30.0(L) 32.0 - 37.0 g/dL LAB HEMETOLOGY METHOD 07/23/2024 7:10 AM [facility] RDW 23.3(H) 11.0 - 15.0 % LAB HEMETOLOGY METHOD 07/23/2024 7:10 AM [facility] Platelets 206 130 - 400 K/mcL LAB HEMETOLOGY METHOD 07/23/2024 7:10 AM [facility] MPV 10.5 7.0 - 11.0 FL LAB HEMETOLOGY METHOD 07/23/2024 7:10 AM [facility] NRBC 0.0 <1.0 % LAB HEMETOLOGY METHOD 07/23/2024 7:10 AM [facility] NRBC Absolute 0.00 <0.10 K/mcL LAB HEMETOLOGY METHOD 07/23/2024 7:10 AM [facility] Neutrophils Relative 90.8 % LAB HEMETOLOGY METHOD 07/23/2024 7:10 AM [facility] Lymphocytes Relative 3.4 % LAB HEMETOLOGY METHOD 07/23/2024 7:10 AM [facility] Monocytes Relative 5.0 % LAB HEMETOLOGY METHOD 07/23/2024 7:10 AM [facility] Eosinophils Relative 0.0 % LAB HEMETOLOGY METHOD 07/23/2024 7:10 AM [facility] Basophils Relative 0.1 % LAB HEMETOLOGY METHOD 07/23/2024 7:10 AM [facility] Immature Granulocytes Relative 0.7 % LAB HEMETOLOGY METHOD 07/23/2024 7:10 AM [facility] Neutrophils Absolute 10.52(H) 1.50 - 7.00 K/mcL LAB HEMETOLOGY METHOD 07/23/2024 7:10 AM [facility] Lymphocytes Absolute 0.39(L) 1.00 - 5.00 K/mcL LAB HEMETOLOGY METHOD 07/23/2024 7:10 AM EST [facility] Monocytes Absolute 0.58 0.20 - 1.00 K/[facility] LAB HEMETOLOGY METHOD 07/23/2024 7:10 AM EST [facility] Eosinophils Absolute 0.00 0.00 - 0.50 K/[facility] LAB HEMETOLOGY METHOD 07/23/2024 7:10 AM EST [facility] Basophils Absolute 0.01 0.00 - 0.20 K/[facility] LAB HEMETOLOGY METHOD 07/23/2024 7:10 AM EST [facility] Immature Granulocytes Absolute 0.08(H) 0.00 - 0.03 K/[facility] LAB HEMETOLOGY METHOD 07/23/2024 7:10 AM [facility] Blood Venous blood specimen / Unknown Venipuncture / Unknown 07/23/2024 5:44 AM EST 07/23/2024 6:50 AM EST [facility] LAB BLOOD ORDERABLES Final R esult [facility] [address] [place] [address], * (ABNORMAL) Basic metabolic panel (07/23/2024 5:44 AM EST) Sodium 130(L) 133 - 145 mmol/L LAB CHEMISTRY METHOD 07/23/2024 8:36 AM [facility] LAB Potassium 5.5 3.5 - 5.5 mmol/L LAB CHEMISTRY METHOD 07/23/2024 8:36 AM [facility] LAB Chloride 92(L) 96 - 110 mmol/L LAB CHEMISTRY METHOD 07/23/2024 8:36 AM EST [facility] LAB CO2 29 21 - 32 mmol/L LAB CHEMISTRY METHOD 07/23/2024 8:36 AM EST [facility] LAB Anion Gap 9 3 - 11 LAB CHEMISTRY METHOD 07/23/2024 8:36 AM [facility] LAB Glucose 378(H) 70 - 100 mg/dL LAB CHEMISTRY METHOD 07/23/2024 8:36 AM [facility] BUN 76(H) 5 - 25 mg/dL LAB CHEMISTRY METHOD 07/23/2024 8:36 AM [facility] LAB Creatinine 4.16(H) 0.50 - 1.10 mg/dL LAB CHEMISTRY METHOD 07/23/2024 8:36 AM [facility] LAB eGFR 10(L) >=60 mL/min/1. 73m2 LAB CHEMISTRY METHOD 07/23/2024 8:36 AM [facility] LAB Comment:Calculation based on the??Chronic Kidney Disease Epidemiology Collaboration (CKD-EPI) equation refit??without adjustment for race. BUN/Creatinine Ratio 18.3 LAB CHEMISTRY METHOD 07/23/2024 8:36 AM [facility] Calcium 7.9(L) 8.5 - 10.5 mg/dL LAB CHEMISTRY METHOD 07/23/2024 8:36 AM [facility] Blood Venous blood specimen / Unknown Venipuncture / Unknown 07/23/2024 5:44 AM EST 07/23/2024 6:50 AM EST us Estate Sade GUERRERO LAB BLOOD ORDERABLES Final R esult [facility] [address] [place] [address], * (ABNORMAL) Heparin and low molecular weight anti Xa level (07/23/2024 2:05 AM EST) Heparin Anti-Xa 0.87(H) 0.30 - 0.70 I Unit/mL LAB COAGULATION METHOD 07/23/2024 2:20 AM [facility] Blood Venous blood specimen / Unknown Venipuncture / Unknown 07/23/2024 2:05 AM EST 07/23/2024 2:10 AM EST Narrative [facility] - 07/23/2024 2:20 AM EST Therapeutic range listed is for Unfractionated Heparin. LMW Heparin therapeutic range: 0.50-1.20 IU/mL Lencho Stuart MD LAB BLOOD ORDERABLES Final R esult Performing Organization Address City/[facility]/ZIP Co de Phone Number [facility] [address] [place] [address], [place] [phone] * (ABNORMAL) POCT Glucose, blood (07/22/2024 8:10 PM EST) [facility] Glucose POCT 304(H) 70 - 100 mg/dL 07/22/2024 8:10 PM EST [facility] Blood Capillary blood specimen / Unknown 07/22/2024 8:10 PM EST 07/22/2024 8:11 PM EST Lencho Stuart MD LAB POINT OF CARE TE ST DOCKED DEVICE UNSOLICITED RESULTS Final Result Performing Organization Address [facility] Co de Phone Number [facility] [address] [place] [address], [place] [phone] * (ABNORMAL) Hemoglobin and hematocrit (07/22/2024 6:40 PM EST) [facility] Hemoglobin 7.1(L) 11.5 - 16.0 g/dL LAB HEMETOLOGY METHOD 07/22/2024 7:24 PM EST [facility] Hematocrit 23.3(L) 35.0 - 47.0 % LAB HEMETOLOGY METHOD 07/22/2024 7:24 PM EST [facility] Blood Venous blood specimen / Unknown Venipuncture / Unknown 07/22/2024 6:40 PM EST 07/22/2024 7:20 PM EST Fela Palomo MD LAB BLOOD ORDERABLES Final Resu lt [facility] [address] [place] [address], [place] [phone] * (ABNORMAL) POCT Glucose, blood (07/22/2024 4:10 PM EST) Glucose POCT 267(H) 70 - 100 mg/dL 07/22/2024 4:11 PM EST [facility] Blood Capillary blood specimen / Unknown 07/22/2024 4:10 PM EST 07/22/2024 4:12 PM EST Lencho Stuart MD LAB POINT OF CARE TE ST DOCKED DEVICE UNSOLICITED RESULTS Final Result Performing Organization Address [facility]/ZIP Co de Phone Number [facility] [address] [place] [address], [place] [phone] * IR Bx Ndl Renal Perc Left [...] Signed Date: 07/22/2024 17:00 ET Workstation ID: [id number] Transcribed By: Self Edit Transcribed Date: 07/22/2024 [...] of fentanyl administered during the procedure. Scanner: [employer] [address] Dose reduction technique: [...] of fentanyl administered during the procedure. Scanner: [employer] [address] Dose reduction technique: [...] Signed Date: 07/22/2024 17:00 ET Workstation ID: [id number] Transcribed By: Self Edit Transcribed Date: 07/22/2024 [...] Tissue exam (07/22/2024 3:13 PM EST) Addendum [facility] Kidney (addendum) This case was sent to [facility], Department of Pathology, [place], [place] (CLIA: [id number]). Their diagnosis is summarized as follows: Pathologic [...] for full kidney biopsy diagnosis from [facility], [place], [place]) 08/12/2024 10:52 AM [facility] Addendum electronically signed by Mitchell Prince MD on 08/12/2024 at 10:52 AM Final Diagnosis Kidney, left-biopsies for routine, immunofluorescence and electron microscopy: -Submitted [facility] to [facility] -See addendum report 08/12/2024 10:52 [facility] Gross Description A. Kidney, Left, : Labeled kidney L . Received fresh in saline are 3 perez-pink soft tissue cores, ranging from 0.7 x 0.1 cm to 1.7 x 0.1 cm, which are transfered to formalin for light microscopy, Mick fixative for Immunofluorescence, and Glutaraldehyde for electron microscopy. The specimen is entirely submitted to [facility] for analysis. ELOISE 08/12/2024 10:52 AM [facility] Disclaimer Unless otherwise specified, all tissue is 10% NB formalin fixed and paraffin embedded. 08/12/2024 10:52 AM EST [facility] Tissue Left kidney structure / Unknown 07/22/2024 3:13 PM EST 07/22/2024 3:39 PM EST Fela Palomo MD LAB PATHOLOGY ORDERABLES Edited Result - Final Performing Organization Address City/[facility]/ZIP Co de Phone Number [facility] [address] [place] [address], [place] [phone] * (ABNORMAL) Prothrombin time with INR (07/22/2024 11:00 AM EST) Protime 16.3(H) 10.6 - 13.9 sec LAB COAGULATION METHOD 07/22/2024 1:11 PM [facility] INR 1.3 LAB COAGULATION METHOD 07/22/2024 1:11 PM [facility] Blood Venous blood specimen / Unknown Venipuncture / Unknown 07/22/2024 11:00 AM EST 07/22/2024 11:22 AM EST Lencho Stuart MD LAB BLOOD ORDERABLES Final R esult Performing Organization Address [facility]/ZIP Co de Phone Number [facility] [address] [place] [address], [place] [phone] * (ABNORMAL) Anti-Xa - Every 6 Hours (07/22/2024 11:00 AM EST) Heparin Anti-Xa <0.04(L) 0.30 - 0.70 I Unit/mL LAB COAGULATION METHOD 07/22/2024 12:11 PM [facility] Blood Venous blood specimen / Unknown Venipuncture / Unknown 07/22/2024 11:00 AM EST 07/22/2024 11:22 AM EST Narrative [facility] - 07/22/2024 12:11 PM EST Therapeutic range listed is for Unfractionated Heparin. LMW Heparin therapeutic range: 0.50-1.20 IU/mL us Lencho Stuart MD LAB BLOOD ORDERABLES Final R esult Performing Organization Address City/[facility]/ZIP Co de Phone Number [facility] [address] [place] [address], [place] [phone] * Lavender tube (07/22/2024 10:53 AM EST) Extra Tube Hold for add-ons. 07/22/2024 1:01 PM EST [facility] Comment:Auto resulted. Blood Venous blood specimen / Unknown 07/22/2024 10:53 AM EST 07/22/2024 11:25 AM EST us Lencho Stuart MD LAB BLOOD ORDERABLES Final R esult Performing Organization Address [facility]/ZIP Co de Phone Number [facility] [address] [place] [address], [place] [phone] * SST tube (07/22/2024 10:53 AM EST) Extra Tube Hold for add-ons. 07/22/2024 1:01 PM EST [facility] Comment:Auto resulted. Blood Venous blood specimen / Unknown 07/22/2024 10:53 AM EST 07/22/2024 11:25 AM EST us Lencho Stuart MD LAB BLOOD ORDERABLES Final R esult Performing Organization Address City/[facility]/ZIP Co de Phone Number [facility] [address] [place] [address], [place] [phone] * (ABNORMAL) POCT Glucose, blood (07/22/2024 10:48 AM EST) Glucose POCT 280(H) 70 - 100 mg/dL 07/22/2024 11:08 AM EST [facility] Blood Capillary blood specimen / Unknown 07/22/2024 10:48 AM EST 07/22/2024 11:09 AM EST us Lencho Stuart MD LAB POINT OF CARE TE ST DOCKED DEVICE UNSOLICITED RESULTS Final Result Performing Organization Address [facility]/ZIP Co de Phone Number [facility] [address] [place] [address], [place] [phone] * (ABNORMAL) POCT Glucose, blood (07/22/2024 8:10 AM EST) Glucose POCT 300(H) 70 - 100 mg/dL 07/22/2024 8:11 AM EST [facility] Blood Capillary blood specimen / Unknown 07/22/2024 8:10 AM EST 07/22/2024 8:13 AM EST us Lencho Stuart MD LAB POINT OF CARE TE ST DOCKED DEVICE UNSOLICITED RESULTS Final Result Performing Organization Address [facility] Co de Phone Number [facility] [address] [place] [address], [place] [phone] * (ABNORMAL) POCT Glucose, blood (07/22/2024 3:43 AM EST) Glucose POCT 276(H) 70 - 100 mg/dL 07/22/2024 3:44 AM EST [facility] Blood Capillary blood specimen / Unknown 07/22/2024 3:43 AM EST 07/22/2024 3:45 AM EST us Lencho Stuart MD LAB POINT OF CARE TE ST DOCKED DEVICE UNSOLICITED RESULTS Final Result Performing Organization Address City/[facility]/ZIP Co de Phone Number [facility] [address] [place] [address], * (ABNORMAL) CBC auto differential (07/22/2024 3:11 AM EST) [facility] WBC 9.6 4.8 - 10.8 K/mcL LAB HEMETOLOGY METHOD 07/22/2024 3:32 AM [facility] RBC 3.00(L) 3.80 - 4.80 M/mcL LAB HEMETOLOGY METHOD 07/22/2024 3:32 AM [facility] Hemoglobin 7.2(L) 11.5 - 16.0 g/dL LAB HEMETOLOGY METHOD 07/22/2024 3:32 AM [facility] Hematocrit 24.3(L) 35.0 - 47.0 % LAB HEMETOLOGY METHOD 07/22/2024 3:32 AM [facility] MCV 80.5 79.0 - 98.0 FL LAB HEMETOLOGY METHOD 07/22/2024 3:32 AM [facility] MCH 23.8(L) 27.0 - 32.0 pcg LAB HEMETOLOGY METHOD 07/22/2024 3:32 AM [facility] MCHC 29.6(L) 32.0 - 37.0 g/dL LAB HEMETOLOGY METHOD 07/22/2024 3:32 AM [facility] RDW 23.6(H) 11.0 - 15.0 % LAB HEMETOLOGY METHOD 07/22/2024 3:32 AM [facility] Platelets 169 130 - 400 K/mcL LAB HEMETOLOGY METHOD 07/22/2024 3:32 AM [facility] MPV 9.7 7.0 - 11.0 FL LAB HEMETOLOGY METHOD 07/22/2024 3:32 AM [facility] NRBC 0.0 <1.0 % LAB HEMETOLOGY METHOD 07/22/2024 3:32 AM [facility] NRBC Absolute 0.00 <0.10 K/mcL LAB HEMETOLOGY METHOD 07/22/2024 3:32 AM [facility] Neutrophils Relative 95.2 % LAB HEMETOLOGY METHOD 07/22/2024 3:32 AM [facility] Lymphocytes Relative 3.3 % LAB HEMETOLOGY METHOD 07/22/2024 3:32 AM [facility] Monocytes Relative 0.7 % LAB HEMETOLOGY METHOD 07/22/2024 3:32 AM [facility] Eosinophils Relative 0.0 % LAB HEMETOLOGY METHOD 07/22/2024 3:32 AM [facility] Basophils Relative 0.1 % LAB HEMETOLOGY METHOD 07/22/2024 3:32 AM [facility] Immature Granulocytes Relative 0.7 % LAB HEMETOLOGY METHOD 07/22/2024 3:32 AM [facility] Neutrophils Absolute 9.13(H) 1.50 - 7.00 K/mcL LAB HEMETOLOGY METHOD 07/22/2024 3:32 AM [facility] Lymphocytes Absolute 0.32(L) 1.00 - 5.00 K/mcL LAB HEMETOLOGY METHOD 07/22/2024 3:32 AM [facility] Monocytes Absolute 0.07(L) 0.20 - 1.00 K/mcL LAB HEMETOLOGY METHOD 07/22/2024 3:32 AM [facility] Eosinophils Absolute 0.00 0.00 - 0.50 K/mcL LAB HEMETOLOGY METHOD 07/22/2024 3:32 AM [facility] Basophils Absolute 0.01 0.00 - 0.20 K/mcL LAB HEMETOLOGY METHOD 07/22/2024 3:32 AM [facility] Immature Granulocytes Absolute 0.07(H) 0.00 - 0.03 K/mcL LAB HEMETOLOGY METHOD 07/22/2024 3:32 AM EST [facility] Blood Venous blood specimen / Unknown Venipuncture / Unknown 07/22/2024 3:11 AM EST 07/22/2024 3:23 AM EST us Lencho Stuart MD LAB BLOOD ORDERABLES Final R esult [facility] [address] [place] [address], * (ABNORMAL) Basic metabolic panel (07/22/2024 3:11 AM EST) Sodium 132(L) 133 - 145 mmol/L LAB CHEMISTRY METHOD 07/22/2024 4:20 AM [facility] Potassium 5.0 3.5 - 5.5 mmol/L LAB CHEMISTRY METHOD 07/22/2024 4:20 AM [facility] Chloride 95(L) 96 - 110 mmol/L LAB CHEMISTRY METHOD 07/22/2024 4:20 AM [facility] CO2 27 21 - 32 mmol/L LAB CHEMISTRY METHOD 07/22/2024 4:20 AM [facility] Anion Gap 10 3 - 11 LAB CHEMISTRY METHOD 07/22/2024 4:20 AM [facility] Glucose 264(H) 70 - 100 mg/dL LAB CHEMISTRY METHOD 07/22/2024 4:20 AM [facility] BUN 40(H) 5 - 25 mg/dL LAB CHEMISTRY METHOD 07/22/2024 4:20 AM [facility] Creatinine 2.87(H) 0.50 - 1.10 mg/dL LAB CHEMISTRY METHOD 07/22/2024 4:20 AM [facility] eGFR 16(L) >=60 mL/min/1. 73m2 LAB CHEMISTRY METHOD 07/22/2024 4:20 AM EST [facility] Comment:Calculation based on the??Chronic Kidney Disease Epidemiology Collaboration (CKD-EPI) equation refit??without adjustment for race. BUN/Creatinine Ratio 13.9 LAB CHEMISTRY METHOD 07/22/2024 4:20 AM EST [facility] Calcium 7.4(L) 8.5 - 10.5 mg/dL LAB CHEMISTRY METHOD 07/22/2024 4:20 AM EST [facility] Blood Venous blood specimen / Unknown Venipuncture / Unknown 07/22/2024 3:11 AM EST 07/22/2024 4:20 AM EST us Lencho Stuart MD LAB BLOOD ORDERABLES Final R esult Performing Organization Address [facility] Co de Phone Number [facility] [address] [place] [address], [place] [phone] * (ABNORMAL) Anti-Xa - Every 6 Hours (07/22/2024 3:09 AM EST) Heparin Anti-Xa 0.26(L) 0.30 - 0.70 I Unit/mL LAB COAGULATION METHOD 07/22/2024 3:33 AM EST [facility] Blood Venous blood specimen / Unknown Venipuncture / Unknown 07/22/2024 3:09 AM EST 07/22/2024 3:23 AM EST Narrative [facility] - 07/22/2024 3:33 AM EST Therapeutic range listed is for Unfractionated Heparin. LMW Heparin therapeutic range: 0.50-1.20 IU/mL us Lencho Stuart MD LAB BLOOD ORDERABLES Final R esult Performing Organization Address City/[facility]/ZIP Co de Phone Number [facility] [address] [place] [address], [place] [phone] * (ABNORMAL) POCT Glucose, blood (07/21/2024 8:10 PM EST) Glucose POCT 172(H) 70 - 100 mg/dL 07/21/2024 8:11 PM EST [facility] Blood Capillary blood specimen / Unknown 07/21/2024 8:10 PM EST 07/21/2024 8:12 PM EST Lencho Stuart MD LAB POINT OF CARE TE ST DOCKED DEVICE UNSOLICITED RESULTS Final Result [facility] [address] [place] [address], * (ABNORMAL) Heparin and low molecular weight anti Xa level (07/21/2024 8:02 PM EST) Heparin Anti-Xa 0.27(L) 0.30 - 0.70 I Unit/mL LAB COAGULATION METHOD 07/21/2024 8:37 PM EST [facility] Blood Venous blood specimen / Unknown Venipuncture / Unknown 07/21/2024 8:02 PM EST 07/21/2024 8:26 PM EST Narrative [facility] - 07/21/2024 8:37 PM EST Therapeutic range listed is for Unfractionated Heparin. LMW Heparin therapeutic range: 0.50-1.20 IU/mL us Lencho Stuart MD LAB BLOOD ORDERABLES Final R esult [facility] [address] [place] [address], * (ABNORMAL) POCT Glucose, blood (07/21/2024 5:04 PM EST) Glucose POCT 175(H) 70 - 100 mg/dL 07/21/2024 5:05 PM EST [facility] Blood Capillary blood specimen / Unknown 07/21/2024 5:04 PM EST 07/21/2024 5:06 PM EST Lencho Stuart MD LAB POINT OF CARE TE ST DOCKED DEVICE UNSOLICITED RESULTS Final Result Performing Organization Address City/[facility]/ZIP Co de Phone Number [facility] [address] [place] [address], [place] [phone] * POCT Glucose, blood (07/21/2024 1:57 PM EST) [facility] Glucose POCT 96 70 - 100 mg/dL 07/21/2024 1:58 PM EST [facility] Blood Capillary blood specimen / Unknown 07/21/2024 1:57 PM EST 07/21/2024 1:59 PM EST Lencho Stuart MD LAB POINT OF CARE TE ST DOCKED DEVICE UNSOLICITED RESULTS Final Result Performing Organization Address City/[facility]/ZIP Co de Phone Number [facility] [address] [place] [address], [place] [phone] * (ABNORMAL) Complete blood count (07/21/2024 8:55 AM EST) [facility] WBC 18.9(H) 4.8 - 10.8 K/mcL LAB HEMETOLOGY METHOD 07/21/2024 9:21 AM [facility] RBC 3.00(L) 3.80 - 4.80 M/mcL LAB HEMETOLOGY METHOD 07/21/2024 9:21 AM [facility] Hemoglobin 7.3(L) 11.5 - 16.0 g/dL LAB HEMETOLOGY METHOD 07/21/2024 9:21 AM [facility] Hematocrit 23.7(L) 35.0 - 47.0 % LAB HEMETOLOGY METHOD 07/21/2024 9:21 AM [facility] MCV 80.3 79.0 - 98.0 FL LAB HEMETOLOGY METHOD 07/21/2024 9:21 AM EST [facility] MCH 24.7(L) 27.0 - 32.0 pcg LAB HEMETOLOGY METHOD 07/21/2024 9:21 AM EST [facility] MCHC 30.8(L) 32.0 - 37.0 g/dL LAB HEMETOLOGY METHOD 07/21/2024 9:21 AM EST [facility] RDW 23.7(H) 11.0 - 15.0 % LAB HEMETOLOGY METHOD 07/21/2024 9:21 AM EST [facility] Platelets 195 130 - 400 K/mcL LAB HEMETOLOGY METHOD 07/21/2024 9:21 AM EST [facility] MPV 10.2 7.0 - 11.0 FL LAB HEMETOLOGY METHOD 07/21/2024 9:21 AM EST [facility] NRBC 0.0 <1.0 % LAB HEMETOLOGY METHOD 07/21/2024 9:21 AM EST [facility] NRBC Absolute 0.00 <0.10 K/mcL LAB HEMETOLOGY METHOD 07/21/2024 9:21 AM EST [facility] Blood Venous blood specimen / Unknown Venipuncture / Unknown 07/21/2024 8:55 AM EST 07/21/2024 9:11 AM EST us Estdimas Stuart MD LAB BLOOD ORDERABLES Final R esult [facility] [address] [place] [address], * (ABNORMAL) Basic metabolic panel (07/21/2024 8:55 AM EST) Sodium 130(L) 133 - 145 mmol/L LAB CHEMISTRY METHOD 07/21/2024 9:50 AM [facility] Potassium 4.8 3.5 - 5.5 mmol/L LAB CHEMISTRY METHOD 07/21/2024 9:50 AM [facility] Chloride 92(L) 96 - 110 mmol/L LAB CHEMISTRY METHOD 07/21/2024 9:50 AM [facility] CO2 29 21 - 32 mmol/L LAB CHEMISTRY METHOD 07/21/2024 9:50 AM [facility] Anion Gap 9 3 - 11 LAB CHEMISTRY METHOD 07/21/2024 9:50 AM [facility] Glucose 142(H) 70 - 100 mg/dL LAB CHEMISTRY METHOD 07/21/2024 9:50 AM [facility] BUN 63(H) 5 - 25 mg/dL LAB CHEMISTRY METHOD 07/21/2024 9:50 AM [facility] Creatinine 5.05(H) 0.50 - 1.10 mg/dL LAB CHEMISTRY METHOD 07/21/2024 9:50 AM [facility] eGFR 8(L) >=60 mL/min/1. 73m2 LAB CHEMISTRY METHOD 07/21/2024 9:50 AM [facility] Comment:Calculation based on the??Chronic Kidney Disease Epidemiology Collaboration (CKD-EPI) equation refit??without adjustment for race. BUN/Creatinine Ratio 12.5 LAB CHEMISTRY METHOD 07/21/2024 9:50 AM [facility] Calcium 7.6(L) 8.5 - 10.5 mg/dL LAB CHEMISTRY METHOD 07/21/2024 9:50 AM [facility] Blood Venous blood specimen / Unknown Venipuncture / Unknown 07/21/2024 8:55 AM EST 07/21/2024 9:10 AM EST us Estate Sade GUERRERO LAB BLOOD ORDERABLES Final R esult [facility] [address] [place] [address], [place] [phone] * (ABNORMAL) POCT Glucose, blood (07/21/2024 8:03 AM EST) [facility] Glucose POCT 159(H) 70 - 100 mg/dL 07/21/2024 8:04 AM EST [facility] Blood Capillary blood specimen / Unknown 07/21/2024 8:03 AM EST 07/21/2024 8:05 AM EST Lencho Stuart MD LAB POINT OF CARE TE ST DOCKED DEVICE UNSOLICITED RESULTS Final Result Performing Organization Address [facility]/ZIP Co de Phone Number [facility] [address] [place] [address], [place] [phone] * SST tube (07/21/2024 5:41 AM EST) [facility] Extra Tube Hold for add-ons. 07/21/2024 9:01 AM EST [facility] Comment:Auto resulted. Blood Venous blood specimen / Unknown 07/21/2024 5:41 AM EST 07/21/2024 7:02 AM EST Lencho Stuart MD LAB BLOOD ORDERABLES Final R esult [facility] [address] [place] [address], [place] [phone] * (ABNORMAL) CBC - Every 3 Days (07/21/2024 5:12 AM EST) [facility] WBC 18.8(H) 4.8 - 10.8 K/[facility] LAB HEMETOLOGY METHOD 07/21/2024 7:22 AM EST [facility] RBC 2.90(L) 3.80 - 4.80 M/[facility] LAB HEMETOLOGY METHOD 07/21/2024 7:22 AM [facility] Hemoglobin 7.3(L) 11.5 - 16.0 g/dL LAB HEMETOLOGY METHOD 07/21/2024 7:22 AM [facility] Hematocrit 23.6(L) 35.0 - 47.0 % LAB HEMETOLOGY METHOD 07/21/2024 7:22 AM [facility] MCV 81.1 79.0 - 98.0 FL LAB HEMETOLOGY METHOD 07/21/2024 7:22 AM [facility] MCH 25.1(L) 27.0 - 32.0 pcg LAB HEMETOLOGY METHOD 07/21/2024 7:22 AM [facility] MCHC 30.9(L) 32.0 - 37.0 g/dL LAB HEMETOLOGY METHOD 07/21/2024 7:22 AM [facility] RDW 23.7(H) 11.0 - 15.0 % LAB HEMETOLOGY METHOD 07/21/2024 7:22 AM [facility] Platelets 200 130 - 400 K/mcL LAB HEMETOLOGY METHOD 07/21/2024 7:22 AM [facility] MPV 10.5 7.0 - 11.0 FL LAB HEMETOLOGY METHOD 07/21/2024 7:22 AM [facility] NRBC 0.0 <1.0 % LAB HEMETOLOGY METHOD 07/21/2024 7:22 AM [facility] NRBC Absolute 0.00 <0.10 K/mcL LAB HEMETOLOGY METHOD 07/21/2024 7:22 AM [facility] Blood Venous blood specimen / Unknown Venipuncture / Unknown 07/21/2024 5:12 AM EST 07/21/2024 6:58 AM EST Estate S[facility]ERR[facility] LAB BLOOD ORDERABLES Final R esult [facility] [address] [place] [address], [place] [phone] * (ABNORMAL) POCT Glucose, blood (07/21/2024 2:47 AM EST) Glucose POCT 144(H) 70 - 100 mg/dL 07/21/2024 2:48 AM EST [facility] Blood Capillary blood specimen / Unknown 07/21/2024 2:47 AM EST 07/21/2024 2:49 AM EST Lencho Stuart MD LAB POINT OF CARE TE ST DOCKED DEVICE UNSOLICITED RESULTS Final Result Performing Organization Address [facility]/ZIP Co de Phone Number [facility] [address] [place] [address], [place] [phone] * (ABNORMAL) POCT Glucose, blood (07/20/2024 8:11 PM EST) Glucose POCT 140(H) 70 - 100 mg/dL 07/20/2024 8:12 PM EST [facility] Blood Capillary blood specimen / Unknown 07/20/2024 8:11 PM EST 07/20/2024 8:13 PM EST Lencho Stuart MD LAB POINT OF CARE TE ST DOCKED DEVICE UNSOLICITED RESULTS Final Result [facility] [address] [place] [address], [place] [phone] * (ABNORMAL) Anti-Xa - Every 6 Hours (07/20/2024 7:45 PM EST) Heparin Anti-Xa <0.04(L) 0.30 - 0.70 I Unit/mL LAB COAGULATION METHOD 07/20/2024 9:02 PM EST [facility] Blood Venous blood specimen / Unknown Venipuncture / Unknown 07/20/2024 7:45 PM EST 07/20/2024 8:01 PM EST Narrative [facility] - 07/20/2024 9:02 PM EST Therapeutic range listed is for Unfractionated Heparin. LMW Heparin therapeutic range: 0.50-1.20 IU/mL us Lencho Stuart MD LAB BLOOD ORDERABLES Final R esult Performing Organization Address [facility] Center/[facility]/ZIP Co de Phone Number [facility] [address] [place] [address], [place] [phone] * (ABNORMAL) POCT Glucose, blood (07/20/2024 4:21 PM EST) Glucose POCT 167(H) 70 - 100 mg/dL 07/20/2024 4:23 PM EST [facility] Blood Capillary blood specimen / Unknown 07/20/2024 4:21 PM EST 07/20/2024 4:24 PM EST us Lencho Stuart MD LAB POINT OF CARE TE ST DOCKED DEVICE UNSOLICITED RESULTS Final Result Performing Organization Address [facility] Co de Phone Number [facility] [address] [place] [address], [place] [phone] * Activated Partial Thromboplastin Time - STAT (07/20/2024 2:30 PM EST) aPTT 30.0 24.1 - 39.3 sec LAB COAGULATION METHOD 07/20/2024 3:06 PM EST [facility] Blood Venous blood specimen / Unknown Venipuncture / Unknown 07/20/2024 2:30 PM EST 07/20/2024 2:52 PM EST us Lencho Stuart MD LAB BLOOD ORDERABLES Final R esult Performing Organization Address City/[facility]/ZIP Co de Phone Number [facility] [address] [place] [address], [place] [phone] * (ABNORMAL) Prothrombin Time with INR - STAT (07/20/2024 2:30 PM EST) Protime 17.6(H) 10.6 - 13.9 sec LAB COAGULATION METHOD 07/20/2024 3:06 PM EST [facility] INR 1.4 LAB COAGULATION METHOD 07/20/2024 3:06 PM EST [facility] Blood Venous blood specimen / Unknown Venipuncture / Unknown 07/20/2024 2:30 PM EST 07/20/2024 2:52 PM EST us Lencho Stuart MD LAB BLOOD ORDERABLES Final R esult Performing Organization Address [facility]/ZIP Co de Phone Number [facility] [address] [place] [address], [place] [phone] * (ABNORMAL) POCT Glucose, blood (07/20/2024 11:23 AM EST) [facility] Glucose POCT 139(H) 70 - 100 mg/dL 07/20/2024 11:24 AM EST [facility] Blood Capillary blood specimen / Unknown 07/20/2024 11:23 AM EST 07/20/2024 11:26 AM EST us Lencho Stuart MD LAB POINT OF CARE TE ST DOCKED DEVICE UNSOLICITED RESULTS Final Result Performing Organization Address City/[facility]/ZIP Co de Phone Number [facility] [address] [place] [address], [place] [phone] * (ABNORMAL) POCT Glucose, blood (07/20/2024 8:20 AM EST) Glucose POCT 132(H) 70 - 100 mg/dL 07/20/2024 8:20 AM [facility] Blood Capillary blood specimen / Unknown 07/20/2024 8:20 AM EST 07/20/2024 8:21 AM EST Lencho Stuart MD LAB POINT OF CARE TE ST DOCKED DEVICE UNSOLICITED RESULTS Final Result [facility] [address] [place] [address], * (ABNORMAL) CBC auto differential (07/20/2024 5:46 AM EST) WBC 20.9(H) 4.8 - 10.8 K/mcL LAB HEMETOLOGY METHOD 07/20/2024 7:07 AM [facility] RBC 3.00(L) 3.80 - 4.80 M/mcL LAB HEMETOLOGY METHOD 07/20/2024 7:07 AM [facility] Hemoglobin 7.3(L) 11.5 - 16.0 g/dL LAB HEMETOLOGY METHOD 07/20/2024 7:07 AM [facility] Hematocrit 23.6(L) 35.0 - 47.0 % LAB HEMETOLOGY METHOD 07/20/2024 7:07 AM [facility] MCV 77.9(L) 79.0 - 98.0 FL LAB HEMETOLOGY METHOD 07/20/2024 7:07 AM [facility] MCH 24.1(L) 27.0 - 32.0 pcg LAB HEMETOLOGY METHOD 07/20/2024 7:07 AM [facility] MCHC 30.9(L) 32.0 - 37.0 g/dL LAB HEMETOLOGY METHOD 07/20/2024 7:07 AM [facility] RDW 23.9(H) 11.0 - 15.0 % LAB HEMETOLOGY METHOD 07/20/2024 7:07 AM [facility] Platelets 217 130 - 400 K/mcL LAB HEMETOLOGY METHOD 07/20/2024 7:07 AM [facility] MPV 9.8 7.0 - 11.0 FL LAB HEMETOLOGY METHOD 07/20/2024 7:07 AM [facility] NRBC 0.0 <1.0 % LAB HEMETOLOGY METHOD 07/20/2024 7:07 AM [facility] NRBC Absolute 0.00 <0.10 K/mcL LAB HEMETOLOGY METHOD 07/20/2024 7:07 AM [facility] Neutrophils Relative 86.5 % LAB HEMETOLOGY METHOD 07/20/2024 7:07 AM [facility] Lymphocytes Relative 3.8 % LAB HEMETOLOGY METHOD 07/20/2024 7:07 AM [facility] Monocytes Relative 5.5 % LAB HEMETOLOGY METHOD 07/20/2024 7:07 AM [facility] Eosinophils Relative 2.7 % LAB HEMETOLOGY METHOD 07/20/2024 7:07 AM [facility] Basophils Relative 0.2 % LAB HEMETOLOGY METHOD 07/20/2024 7:07 AM [facility] Immature Granulocytes Relative 1.3 % LAB HEMETOLOGY METHOD 07/20/2024 7:07 AM [facility] Neutrophils Absolute 18.10(H) 1.50 - 7.00 K/mcL LAB HEMETOLOGY METHOD 07/20/2024 7:07 AM [facility] Lymphocytes Absolute 0.80(L) 1.00 - 5.00 K/mcL LAB HEMETOLOGY METHOD 07/20/2024 7:07 AM [facility] Monocytes Absolute 1.16(H) 0.20 - 1.00 K/mcL LAB HEMETOLOGY METHOD 07/20/2024 7:07 AM [facility] Eosinophils Absolute 0.56(H) 0.00 - 0.50 K/[facility] LAB HEMETOLOGY METHOD 07/20/2024 7:07 AM [facility] Basophils Absolute 0.04 0.00 - 0.20 K/[facility] LAB HEMETOLOGY METHOD 07/20/2024 7:07 AM [facility] Immature Granulocytes Absolute 0.27(H) 0.00 - 0.03 K/[facility] LAB HEMETOLOGY METHOD 07/20/2024 7:07 AM [facility] Blood Venous blood specimen / Unknown Venipuncture / Unknown 07/20/2024 5:46 AM EST 07/20/2024 6:38 AM EST Estate Sade GUERRERO LAB BLOOD ORDERABLES Final R esult [facility] [address] [place] [address], * (ABNORMAL) CBC - Every 3 Days (07/20/2024 5:46 AM EST) WBC 20.9(H) 4.8 - 10.8 K/mcL LAB HEMETOLOGY METHOD 07/20/2024 7:07 AM [facility] RBC 3.00(L) 3.80 - 4.80 M/[facility] LAB HEMETOLOGY METHOD 07/20/2024 7:07 AM [facility] Hemoglobin 7.3(L) 11.5 - 16.0 g/dL LAB HEMETOLOGY METHOD 07/20/2024 7:07 AM [facility] Hematocrit 23.6(L) 35.0 - 47.0 % LAB HEMETOLOGY METHOD 07/20/2024 7:07 AM [facility] MCV 77.9(L) 79.0 - 98.0 FL LAB HEMETOLOGY METHOD 07/20/2024 7:07 AM EST [facility] MCH 24.1(L) 27.0 - 32.0 pcg LAB HEMETOLOGY METHOD 07/20/2024 7:07 AM [facility] MCHC 30.9(L) 32.0 - 37.0 g/dL LAB HEMETOLOGY METHOD 07/20/2024 7:07 AM EST [facility] RDW 23.9(H) 11.0 - 15.0 % LAB HEMETOLOGY METHOD 07/20/2024 7:07 AM EST [facility] Platelets 217 130 - 400 K/mcL LAB HEMETOLOGY METHOD 07/20/2024 7:07 AM [facility] MPV 9.8 7.0 - 11.0 FL LAB HEMETOLOGY METHOD 07/20/2024 7:07 AM EST [facility] NRBC 0.0 <1.0 % LAB HEMETOLOGY METHOD 07/20/2024 7:07 AM [facility] NRBC Absolute 0.00 <0.10 K/mcL LAB HEMETOLOGY METHOD 07/20/2024 7:07 AM [facility] Blood Venous blood specimen / Unknown Venipuncture / Unknown 07/20/2024 5:46 AM EST 07/20/2024 6:38 AM EST us Kwesi Guido MD LAB BLOOD ORDERABLES F inal Result [facility] [address] [place] [address], * Heparin and low molecular weight anti Xa level (07/20/2024 5:46 AM EST) Heparin Anti-Xa 0.36 0.30 - 0.70 I Unit/mL LAB COAGULATION METHOD 07/20/2024 7:15 AM [facility] Blood Venous blood specimen / Unknown Venipuncture / Unknown 07/20/2024 5:46 AM EST 07/20/2024 6:40 AM EST Narrative [facility] - 07/20/2024 7:15 AM EST Therapeutic range listed is for Unfractionated Heparin. LMW Heparin therapeutic range: 0.50-1.20 IU/mL Lencho Stuart MD LAB BLOOD ORDERABLES Final R esult [facility] [address] [place] [address], * (ABNORMAL) Basic metabolic panel (07/20/2024 5:46 AM EST) Sodium 132(L) 133 - 145 mmol/L LAB CHEMISTRY METHOD 07/20/2024 8:03 AM [facility] Potassium 4.2 3.5 - 5.5 mmol/L LAB CHEMISTRY METHOD 07/20/2024 8:03 AM [facility] Chloride 95(L) 96 - 110 mmol/L LAB CHEMISTRY METHOD 07/20/2024 8:03 AM [facility] CO2 29 21 - 32 mmol/L LAB CHEMISTRY METHOD 07/20/2024 8:03 AM [facility] Anion Gap 8 3 - 11 LAB CHEMISTRY METHOD 07/20/2024 8:03 AM [facility] Glucose 113(H) 70 - 100 mg/dL LAB CHEMISTRY METHOD 07/20/2024 8:03 AM [facility] BUN 41(H) 5 - 25 mg/dL LAB CHEMISTRY METHOD 07/20/2024 8:03 AM [facility] Creatinine 3.68(H) 0.50 - 1.10 mg/dL LAB CHEMISTRY METHOD 07/20/2024 8:03 AM [facility] eGFR 12(L) >=60 mL/min/1. 73m2 LAB CHEMISTRY METHOD 07/20/2024 8:03 AM EST [facility] Comment:Calculation based on the??Chronic Kidney Disease Epidemiology Collaboration (CKD-EPI) equation refit??without adjustment for race. BUN/Creatinine Ratio 11.1 LAB CHEMISTRY METHOD 07/20/2024 8:03 AM [facility] Calcium 7.3(L) 8.5 - 10.5 mg/dL LAB CHEMISTRY METHOD 07/20/2024 8:03 AM [facility] Blood Venous blood specimen / Unknown Venipuncture / Unknown 07/20/2024 5:46 AM EST 07/20/2024 6:38 AM EST us Lencho Stuart MD LAB BLOOD ORDERABLES Final R esult Performing Organization Address City/[facility]/ZIP Co de Phone Number [facility] [address] [place] [address], [place] [phone] * (ABNORMAL) POCT Glucose, blood (07/19/2024 8:18 PM EST) Glucose POCT 146(H) 70 - 100 mg/dL 07/19/2024 8:18 PM EST [facility] Blood Capillary blood specimen / Unknown 07/19/2024 8:18 PM EST 07/19/2024 8:19 PM EST us Lencho Stuart MD LAB POINT OF CARE TE ST DOCKED DEVICE UNSOLICITED RESULTS Final Result [facility] [address] [place] [address], [place] [phone] * (ABNORMAL) POCT Glucose, blood (07/19/2024 7:29 PM EST) Glucose POCT 152(H) 70 - 100 mg/dL 07/19/2024 7:30 PM EST [facility] Blood Capillary blood specimen / Unknown 07/19/2024 7:29 PM EST 07/19/2024 7:31 PM EST us Lencho Stuart MD LAB POINT OF CARE TE ST DOCKED DEVICE UNSOLICITED RESULTS Final Result Performing Organization Address [facility]/ZIP Co de Phone Number [facility] [address] [place] [address], [place] [phone] * (ABNORMAL) POCT Glucose, blood (07/19/2024 4:01 PM EST) Glucose POCT 139(H) 70 - 100 mg/dL 07/19/2024 4:02 PM EST [facility] Blood Capillary blood specimen / Unknown 07/19/2024 4:01 PM EST 07/19/2024 4:03 PM EST us Lencho Stuart MD LAB POINT OF CARE TE ST DOCKED DEVICE UNSOLICITED RESULTS Final Result Performing Organization Address [facility]/ZIP Co de Phone Number [facility] [address] [place] [address], [place] [phone] * (ABNORMAL) Hemoglobin and hematocrit (07/19/2024 2:31 PM EST) Hemoglobin 7.6(L) 11.5 - 16.0 g/dL LAB HEMETOLOGY METHOD 07/19/2024 3:11 PM EST [facility] Hematocrit 23.8(L) 35.0 - 47.0 % LAB HEMETOLOGY METHOD 07/19/2024 3:11 PM EST [facility] Blood Venous blood specimen / Unknown Venipuncture / Unknown 07/19/2024 2:31 PM EST 07/19/2024 3:05 PM EST Lencho Stuart MD LAB BLOOD ORDERABLES Final R esult Performing Organization Address City/[facility]/ZIP Co de Phone Number [facility] [address] [place] [address], [place] [phone] * Creatinine, urine, random (07/19/2024 12:01 PM EST) Creatinine, Urine 41.0 mg/dL LAB CHEMISTRY METHOD 07/19/2024 1:17 PM [facility] Urine Urine specimen obtained by clean catch procedure / Unknown Non-blood Collection / Unknown 07/19/2024 12:01 PM EST 07/19/2024 12:30 PM EST Miguel Quiles MD LAB URINE ORDERABLES Final Res ult Performing Organization Address [facility] Co de Phone Number [facility] [address] [place] [address], [place] [phone] * (ABNORMAL) Microalbumin creatinine urine ratio (07/19/2024 12:01 PM EST) Creatinine, Urine 41.0 mg/dL LAB CHEMISTRY METHOD 07/19/2024 1:46 PM [facility] Microalb, Ur 1,480.0(H ) 0.0 - 29.0 mg/L LAB CHEMISTRY METHOD 07/19/2024 1:46 PM [facility] Microalb/Crea t Ratio 3,610(H) <30 mg/g creat LAB CHEMISTRY METHOD 07/19/2024 1:46 PM [facility] Urine Urine specimen obtained by clean catch procedure / Unknown Non-blood Collection / Unknown 07/19/2024 12:01 PM EST 07/19/2024 12:30 PM EST Miguel Quiles MD LAB URINE ORDERABLES Final Res ult [facility] [address] [place] [address], [place] [phone] * (ABNORMAL) POCT Glucose, blood (07/19/2024 11:32 AM EST) Glucose POCT 132(H) 70 - 100 mg/dL 07/19/2024 11:33 AM EST [facility] Blood Capillary blood specimen / Unknown 07/19/2024 11:32 AM EST 07/19/2024 11:34 AM EST Lencho Stuart MD LAB POINT OF CARE TE ST DOCKED DEVICE UNSOLICITED RESULTS Final Result [facility] [address] [place] [address], [place] [phone] * (ABNORMAL) POCT Glucose, blood (07/19/2024 9:07 AM EST) [facility] Glucose POCT 117(H) 70 - 100 mg/dL 07/19/2024 9:07 AM EST [facility] Blood Capillary blood specimen / Unknown 07/19/2024 9:07 AM EST 07/19/2024 9:09 AM EST us Lencho Stuart MD LAB POINT OF CARE TE ST DOCKED DEVICE UNSOLICITED RESULTS Final Result [facility] [address] [place] [address], [place] [phone] * (ABNORMAL) CBC auto differential (07/19/2024 7:55 AM EST) WBC 25.0(H) 4.8 - 10.8 K/[facility] LAB HEMETOLOGY METHOD 07/19/2024 8:36 AM EST [facility] RBC 2.80(L) 3.80 - 4.80 M/[facility] LAB HEMETOLOGY METHOD 07/19/2024 8:36 AM [facility] Hemoglobin 7.0(L) 11.5 - 16.0 g/dL LAB HEMETOLOGY METHOD 07/19/2024 8:36 AM [facility] Hematocrit 22.2(L) 35.0 - 47.0 % LAB HEMETOLOGY METHOD 07/19/2024 8:36 AM [facility] MCV 79.0 79.0 - 98.0 FL LAB HEMETOLOGY METHOD 07/19/2024 8:36 AM [facility] MCH 24.9(L) 27.0 - 32.0 pcg LAB HEMETOLOGY METHOD 07/19/2024 8:36 AM [facility] MCHC 31.5(L) 32.0 - 37.0 g/dL LAB HEMETOLOGY METHOD 07/19/2024 8:36 AM [facility] RDW 23.9(H) 11.0 - 15.0 % LAB HEMETOLOGY METHOD 07/19/2024 8:36 AM [facility] Platelets 218 130 - 400 K/mcL LAB HEMETOLOGY METHOD 07/19/2024 8:36 AM [facility] MPV 10.6 7.0 - 11.0 FL LAB HEMETOLOGY METHOD 07/19/2024 8:36 AM [facility] NRBC 0.0 <1.0 % LAB HEMETOLOGY METHOD 07/19/2024 8:36 AM [facility] NRBC Absolute 0.00 <0.10 K/mcL LAB HEMETOLOGY METHOD 07/19/2024 8:36 AM [facility] Neutrophils Relative 87.6 % LAB HEMETOLOGY METHOD 07/19/2024 8:36 AM [facility] Comment:This is an appended report. These results have been appended to a previously preliminary verified report. Lymphocytes Relative 3.0 % LAB HEMETOLOGY METHOD 07/19/2024 8:36 AM [facility] Comment:This is an appended report. These results have been appended to a previously preliminary verified report. Monocytes Relative 4.6 % LAB HEMETOLOGY METHOD 07/19/2024 8:36 AM [facility] Comment:This is an appended report. These results have been appended to a previously preliminary verified report. Eosinophils Relative 3.0 % LAB HEMETOLOGY METHOD 07/19/2024 8:36 AM [facility] Comment:This is an appended report. These results have been appended to a previously preliminary verified report. Basophils Relative 0.2 % LAB HEMETOLOGY METHOD 07/19/2024 8:36 AM [facility] Comment:This is an appended report. These results have been appended to a previously preliminary verified report. Immature Granulocytes Relative 1.6 % LAB HEMETOLOGY METHOD 07/19/2024 8:36 AM [facility] Comment:This is an appended report. These results have been appended to a previously preliminary verified report. Neutrophils Absolute 21.89(H) 1.50 - 7.00 K/mcL LAB HEMETOLOGY METHOD 07/19/2024 8:36 AM [facility] Comment:This is an appended report. These results have been appended to a previously preliminary verified report. Lymphocytes Absolute 0.76(L) 1.00 - 5.00 K/mcL LAB HEMETOLOGY METHOD 07/19/2024 8:36 AM [facility] Comment:This is an appended report. These results have been appended to a previously preliminary verified report. Monocytes Absolute 1.14(H) 0.20 - 1.00 K/mcL LAB HEMETOLOGY METHOD 07/19/2024 8:36 AM [facility] Comment:This is an appended report. These results have been appended to a previously preliminary verified report. Eosinophils Absolute 0.76(H) 0.00 - 0.50 K/mcL LAB HEMETOLOGY METHOD 07/19/2024 8:36 AM EST [facility] Comment:This is an appended report. These results have been appended to a previously preliminary verified report. Basophils Absolute 0.05 0.00 - 0.20 K/[facility] LAB HEMETOLOGY METHOD 07/19/2024 8:36 AM EST [facility] Comment:This is an appended report. These results have been appended to a previously preliminary verified report. Immature Granulocytes Absolute 0.40(H) 0.00 - 0.03 K/[facility] HEMETOLOGY METHOD 07/19/2024 8:36 AM EST [facility] Comment:This is an appended report. These results have been appended to a previously preliminary verified report. Blood Venous blood specimen / Unknown Venipuncture / Unknown 07/19/2024 7:55 AM EST 07/19/2024 7:55 AM EST Estdimas Stuart MD LAB BLOOD ORDERABLES Final R esult [facility] [address] [place] [address], * (ABNORMAL) Parathyroid hormone related protein (07/19/2024 [...] analytical performance characteristics have been determined by [facility]. It has not been cleared or approved by FDA. This assay has been validated pursuant to the CLIA regulations and is used for clinical purposes. Test Performed at: [facility] [address] ??[id number] ? I Bethany GUERRERO, PhD, NINA Blood Venous blood specimen / Unknown Venipuncture / Unknown 07/19/2024 7:55 AM EST 07/19/2024 7:55 AM EST us Jesus Manuel HEDRICK LAB BLOOD ORDERABLES Final Resu lt [facility] [address] [place] [address] * (ABNORMAL) Anti-neutrophilic cytoplasmic antibody (07/19/2024 6:52 AM EST) Myeloperoxidase Ab Negative Negative LAB CHEMISTRY METHOD 07/20/2024 12:10 PM EST [facility] Myeloperoxidase Ab, Quant 1 <=20 units LAB CHEMISTRY METHOD 07/20/2024 12:10 PM EST [facility] Proteinase-3 Ab Positive(A ) Negative LAB CHEMISTRY METHOD 07/20/2024 12:10 PM EST [facility] Proteinase-3 Ab Quant 165(H) <=20 units LAB CHEMISTRY METHOD 07/20/2024 12:10 PM EST [facility] Blood Venous blood specimen / Unknown Venipuncture / Unknown 07/19/2024 6:52 AM EST 07/19/2024 7:21 AM EST Miguel Quiles MD LAB BLOOD ORDERABLES Final Res ult [facility] [address] [place] [address], * Anti-Xa - Every 6 Hours (07/19/2024 6:52 AM EST) Heparin Anti-Xa 0.37 0.30 - 0.70 I Unit/mL LAB COAGULATION METHOD 07/19/2024 7:38 AM EST [facility] Blood Venous blood specimen / Unknown Venipuncture / Unknown 07/19/2024 6:52 AM EST 07/19/2024 7:21 AM EST Narrative [facility] - 07/19/2024 7:38 AM EST Therapeutic range listed is for Unfractionated Heparin. LMW Heparin therapeutic range: 0.50-1.20 IU/mL us Lencho Stuart MD LAB BLOOD ORDERABLES Final R esult [facility] [address] [place] [address], * (ABNORMAL) Basic metabolic panel (07/19/2024 6:52 AM EST) Sodium 128(L) 133 - 145 mmol/L LAB CHEMISTRY METHOD 07/19/2024 8:56 AM [facility] Potassium 4.9 3.5 - 5.5 mmol/L LAB CHEMISTRY METHOD 07/19/2024 8:56 AM [facility] Chloride 93(L) 96 - 110 mmol/L LAB CHEMISTRY METHOD 07/19/2024 8:56 AM [facility] CO2 28 21 - 32 mmol/L LAB CHEMISTRY METHOD 07/19/2024 8:56 AM [facility] Anion Gap 7 3 - 11 LAB CHEMISTRY METHOD 07/19/2024 8:56 AM [facility] Glucose 170(H) 70 - 100 mg/dL LAB CHEMISTRY METHOD 07/19/2024 8:56 AM [facility] BUN 83(H) 5 - 25 mg/dL LAB CHEMISTRY METHOD 07/19/2024 8:56 AM [facility] Creatinine 5.96(H) 0.50 - 1.10 mg/dL LAB CHEMISTRY METHOD 07/19/2024 8:56 AM [facility] eGFR 7(L) >=60 mL/min/1. 73m2 LAB CHEMISTRY METHOD 07/19/2024 8:56 AM [facility] Comment:Calculation based on the??Chronic Kidney Disease Epidemiology Collaboration (CKD-EPI) equation refit??without adjustment for race. BUN/Creatinine Ratio 13.9 LAB CHEMISTRY METHOD 07/19/2024 8:56 AM [facility] Calcium 7.7(L) 8.5 - 10.5 mg/dL LAB CHEMISTRY METHOD 07/19/2024 8:56 AM [facility] Blood Venous blood specimen / Unknown Venipuncture / Unknown 07/19/2024 6:52 AM EST 07/19/2024 7:21 AM EST us Lencho Stuart MD LAB BLOOD ORDERABLES Final R esult [facility] [address] [place] [address], [place] [phone] * (ABNORMAL) POCT Glucose, blood (07/18/2024 8:27 PM EST) Glucose POCT 193(H) 70 - 100 mg/dL 07/18/2024 8:27 PM EST [facility] Blood Capillary blood specimen / Unknown 07/18/2024 8:27 PM EST 07/18/2024 8:28 PM EST us Lencho Stuart MD LAB POINT OF CARE TE ST DOCKED DEVICE UNSOLICITED RESULTS Final Result [facility] [address] [place] [address], [place] [phone] * Anti-Xa - Every 6 Hours (07/18/2024 6:07 PM EST) Heparin Anti-Xa 0.42 0.30 - 0.70 I Unit/mL LAB COAGULATION METHOD 07/18/2024 7:21 PM EST [facility] Blood Venous blood specimen / Unknown Venipuncture / Unknown 07/18/2024 6:07 PM EST 07/18/2024 7:00 PM EST Narrative [facility] - 07/18/2024 7:21 PM EST Therapeutic range listed is for Unfractionated Heparin. LMW Heparin therapeutic range: 0.50-1.20 IU/mL us Kwesi Guido MD LAB BLOOD ORDERABLES F inal Result Performing Organization Address [facility]/ZIP Co de Phone Number [facility] [address] [place] [address], [place] [phone] * (ABNORMAL) POCT Glucose, blood (07/18/2024 4:00 PM EST) [facility] Glucose POCT 210(H) 70 - 100 mg/dL 07/18/2024 4:01 PM EST [facility] Blood Capillary blood specimen / Unknown 07/18/2024 4:00 PM EST 07/18/2024 4:02 PM EST us Lencho Stuart MD LAB POINT OF CARE TE ST DOCKED DEVICE UNSOLICITED RESULTS Final Result Performing Organization Address [facility] Co de Phone Number [facility] [address] [place] [address], [place] [phone] * Anti-Xa - Every 6 Hours (07/18/2024 12:43 PM EST) Heparin Anti-Xa 0.39 0.30 - 0.70 I Unit/mL LAB COAGULATION METHOD 07/18/2024 1:15 PM EST [facility] Blood Venous blood specimen / Unknown Venipuncture / Unknown 07/18/2024 12:43 PM EST 07/18/2024 12:49 PM EST Narrative [facility] - 07/18/2024 1:15 PM EST Therapeutic range listed is for Unfractionated Heparin. LMW Heparin therapeutic range: 0.50-1.20 IU/mL us Kwesi Guido MD LAB BLOOD ORDERABLES F inal Result Performing Organization Address [facility]/ZIP Co de Phone Number [facility] [address] [place] [address], [place] [phone] * (ABNORMAL) POCT Glucose, blood (07/18/2024 11:17 AM EST) Glucose POCT 244(H) 70 - 100 mg/dL 07/18/2024 11:19 AM EST [facility] Blood Capillary blood specimen / Unknown 07/18/2024 11:17 AM EST 07/18/2024 11:21 AM EST Lencho Stuart MD LAB POINT OF CARE TE ST DOCKED DEVICE UNSOLICITED RESULTS Final Result Performing Organization Address [facility] Co de Phone Number [facility] [address] [place] [address], [place] [phone] * (ABNORMAL) POCT Glucose, blood (07/18/2024 7:54 AM EST) [facility] Signature Glucose POCT 219(H) 70 - 100 mg/dL 07/18/2024 7:54 AM EST [facility] Blood Capillary blood specimen / Unknown 07/18/2024 7:54 AM EST 07/18/2024 7:56 AM EST Lencho Stuart MD LAB POINT OF CARE TE ST DOCKED DEVICE UNSOLICITED RESULTS Final Result Performing Organization Address City/[facility]/ZIP Co de Phone Number [facility] [address] [place] [address], [place] [phone] * Robertson urine culture tube (07/18/2024 6:10 AM EST) Extra Tube Hold for add-ons. 07/18/2024 8:01 AM [facility] Comment:Auto resulted. Urine Urine specimen obtained by clean catch procedure / Unknown 07/18/2024 6:10 AM EST 07/18/2024 6:37 AM EST Lencho Stuart MD LAB URINE ORDERABLES Final R esult Performing Organization Address [facility]/ZIP Co de Phone Number [facility] [address] [place] [address], [place] [phone] * (ABNORMAL) Urinalysis microscopic only (07/18/2024 6:09 AM EST) RBC, Urine 10(H) 0 - 4 /HPF 07/18/2024 7:53 AM [facility] WBC, Urine >100(H) 0 - 4 /HPF 07/18/2024 7:53 AM [facility] Squamous Epithelial, Urine 10 0 - 60 /LPF 07/18/2024 7:53 AM [facility] Non-Squamous Epithelial, Urine 2-5 Transitional epithelial cells. /LPF 07/18/2024 7:53 AM [facility] Bacteria, Urine Many(A) Negative /HPF 07/18/2024 7:53 AM [facility] Other Casts, Urine Rare Coarse Granular casts. /LPF 07/18/2024 7:53 AM [facility] Urine Indwelling urinary catheter / Unknown Non-blood Collection / Unknown 07/18/2024 6:09 AM EST 07/18/2024 6:36 AM EST Kwesi Guido MD LAB URINE ORDERABLES F inal Result Performing Organization Address [facility]/ZIP Co de Phone Number [facility] [address] [place] [address], * Anti-Xa - Every 6 Hours (07/18/2024 6:07 AM EST) [facility] Heparin Anti-Xa 0.34 0.30 - 0.70 I Unit/mL LAB COAGULATION METHOD 07/18/2024 7:02 AM [facility] Blood Venous blood specimen / Unknown 07/18/2024 6:07 AM EST 07/18/2024 6:34 AM EST [facility] - 07/18/2024 7:02 AM EST Therapeutic range listed is for Unfractionated Heparin. LMW Heparin therapeutic range: 0.50-1.20 IU/mL Kwesi Guido MD LAB BLOOD ORDERABLES F inal Result [facility] [address] [place] [address], [place] [phone] * (ABNORMAL) CBC auto differential (07/18/2024 6:07 AM EST) [facility] WBC 25.5(H) 4.8 - 10.8 K/mcL LAB HEMETOLOGY METHOD 07/18/2024 7:23 AM [facility] RBC 3.20(L) 3.80 - 4.80 M/mcL LAB HEMETOLOGY METHOD 07/18/2024 7:23 AM [facility] Hemoglobin 7.8(L) 11.5 - 16.0 g/dL LAB HEMETOLOGY METHOD 07/18/2024 7:23 AM [facility] Hematocrit 24.9(L) 35.0 - 47.0 % LAB HEMETOLOGY METHOD 07/18/2024 7:23 AM [facility] MCV 77.6(L) 79.0 - 98.0 FL LAB HEMETOLOGY METHOD 07/18/2024 7:23 AM [facility] MCH 24.3(L) 27.0 - 32.0 pcg LAB HEMETOLOGY METHOD 07/18/2024 7:23 AM [facility] MCHC 31.3(L) 32.0 - 37.0 g/dL LAB HEMETOLOGY METHOD 07/18/2024 7:23 AM [facility] RDW 24.1(H) 11.0 - 15.0 % LAB HEMETOLOGY METHOD 07/18/2024 7:23 AM [facility] Platelets 242 130 - 400 K/mcL LAB HEMETOLOGY METHOD 07/18/2024 7:23 AM [facility] MPV 9.6 7.0 - 11.0 FL LAB HEMETOLOGY METHOD 07/18/2024 7:23 AM [facility] NRBC 0.0 <1.0 % LAB HEMETOLOGY METHOD 07/18/2024 7:23 AM [facility] NRBC Absolute 0.00 <0.10 K/mcL LAB HEMETOLOGY METHOD 07/18/2024 7:23 AM [facility] Neutrophils Relative 89.3 % LAB HEMETOLOGY METHOD 07/18/2024 7:23 AM [facility] Comment:This is an appended report. These results have been appended to a previously preliminary verified report. Lymphocytes Relative 2.8 % LAB HEMETOLOGY METHOD 07/18/2024 7:23 AM [facility] Comment:This is an appended report. These results have been appended to a previously preliminary verified report. Monocytes Relative 4.2 % LAB HEMETOLOGY METHOD 07/18/2024 7:23 AM [facility] Comment:This is an appended report. These results have been appended to a previously preliminary verified report. Eosinophils Relative 1.9 % LAB HEMETOLOGY METHOD 07/18/2024 7:23 AM [facility] Comment:This is an appended report. These results have been appended to a previously preliminary verified report. Basophils Relative 0.2 % LAB HEMETOLOGY METHOD 07/18/2024 7:23 AM [facility] Comment:This is an appended report. These results have been appended to a previously preliminary verified report. Immature Granulocytes Relative 1.6 % LAB HEMETOLOGY METHOD 07/18/2024 7:23 AM [facility] Comment:This is an appended report. These results have been appended to a previously preliminary verified report. Neutrophils Absolute 22.74(H) 1.50 - 7.00 K/mcL LAB HEMETOLOGY METHOD 07/18/2024 7:23 AM [facility] Comment:This is an appended report. These results have been appended to a previously preliminary verified report. Lymphocytes Absolute 0.72(L) 1.00 - 5.00 K/mcL LAB HEMETOLOGY METHOD 07/18/2024 7:23 AM [facility] Comment:This is an appended report. These results have been appended to a previously preliminary verified report. Monocytes Absolute 1.06(H) 0.20 - 1.00 K/mcL LAB HEMETOLOGY METHOD 07/18/2024 7:23 AM [facility] Comment:This is an appended report. These results have been appended to a previously preliminary verified report. Eosinophils Absolute 0.49 0.00 - 0.50 K/mcL LAB HEMETOLOGY METHOD 07/18/2024 7:23 AM [facility] Comment:This is an appended report. These results have been appended to a previously preliminary verified report. Basophils Absolute 0.04 0.00 - 0.20 K/mcL LAB HEMETOLOGY METHOD 07/18/2024 7:23 AM [facility] Comment:This is an appended report. These results have been appended to a previously preliminary verified report. Immature Granulocytes Absolute 0.41(H) 0.00 - 0.03 K/mcL LAB HEMETOLOGY METHOD 07/18/2024 7:23 AM [facility] Comment:This is an appended report. These results have been appended to a previously preliminary verified report. Blood Venous blood specimen / Unknown Venipuncture / Unknown 07/18/2024 6:07 AM EST 07/18/2024 7:16 AM EST us Kwesi Guido MD LAB BLOOD ORDERABLES F inal Result Performing Organization Address City/[facility]/ZIP Co de Phone Number [facility] [address] [place] [address], [place] [phone] * (ABNORMAL) Calcium, ionized (07/18/2024 6:07 AM EST) [facility] Calcium Ionized 4.28(L) 4.50 - 5.30 mg/dL 07/18/2024 6:46 AM EST [facility] Blood Venous blood specimen / Unknown 07/18/2024 6:07 AM EST 07/18/2024 6:33 AM EST us Kwesi Guido MD LAB BLOOD ORDERABLES F inal Result Performing Organization Address [facility] Co de Phone Number [facility] [address] [place] [address], [place] [phone] * (ABNORMAL) Basic metabolic panel (07/18/2024 6:07 AM EST) Pathologist [facility] Sodium 132(L) 133 - 145 mmol/L LAB CHEMISTRY METHOD 07/18/2024 7:48 AM EST [facility] Potassium 4.4 3.5 - 5.5 mmol/L LAB CHEMISTRY METHOD 07/18/2024 7:48 AM EST [facility] Chloride 95(L) 96 - 110 mmol/L LAB CHEMISTRY METHOD 07/18/2024 7:48 AM EST [facility] CO2 27 21 - 32 mmol/L LAB CHEMISTRY METHOD 07/18/2024 7:48 AM EST [facility] Anion Gap 10 3 - 11 LAB CHEMISTRY METHOD 07/18/2024 7:48 AM [facility] Glucose 225(H) 70 - 100 mg/dL LAB CHEMISTRY METHOD 07/18/2024 7:48 AM [facility] BUN 67(H) 5 - 25 mg/dL LAB CHEMISTRY METHOD 07/18/2024 7:48 AM [facility] Creatinine 4.92(H) 0.50 - 1.10 mg/dL LAB CHEMISTRY METHOD 07/18/2024 7:48 AM [facility] eGFR 8(L) >=60 mL/min/1. 73m2 LAB CHEMISTRY METHOD 07/18/2024 7:48 AM [facility] Comment:Calculation based on the??Chronic Kidney Disease Epidemiology Collaboration (CKD-EPI) equation refit??without adjustment for race. BUN/Creatinine Ratio 13.6 LAB CHEMISTRY METHOD 07/18/2024 7:48 AM [facility] Calcium 7.5(L) 8.5 - 10.5 mg/dL LAB CHEMISTRY METHOD 07/18/2024 7:48 AM [facility] Blood Venous blood specimen / Unknown 07/18/2024 6:07 AM EST 07/18/2024 6:34 AM EST us Kwesi Guido MD LAB BLOOD ORDERABLES F inal Result [facility] [address] [place] [address], * (ABNORMAL) Anti-Xa - Every 6 Hours (07/18/2024 12:19 AM EST) Heparin Anti-Xa 0.19(L) 0.30 - 0.70 I Unit/mL LAB COAGULATION METHOD 07/18/2024 12:48 AM [facility] Blood Venous blood specimen / Unknown Venipuncture / Unknown 07/18/2024 12:19 AM EST 07/18/2024 12:38 AM EST Narrative [facility] - 07/18/2024 12:48 AM EST Therapeutic range listed is for Unfractionated Heparin. LMW Heparin therapeutic range: 0.50-1.20 IU/mL us Kwesi Guido MD LAB BLOOD ORDERABLES F inal Result Performing Organization Address City/[facility]/ZIP Co de Phone Number [facility] [address] [place] [address], [place] [phone] * (ABNORMAL) POCT Glucose, blood (07/17/2024 9:12 PM EST) Glucose POCT 240(H) 70 - 100 mg/dL 07/17/2024 9:13 PM EST [facility] Blood Capillary blood specimen / Unknown 07/17/2024 9:12 PM EST 07/17/2024 9:14 PM EST us Kwesi Guido MD LAB POINT OF C ARE TEST DOCKED DEVICE UNSOLICITED RESULTS Final Result Performing Organization Address [facility] Co de Phone Number [facility] [address] [place] [address], [place] [phone] * Anti-Xa - Every 6 Hours (07/17/2024 6:37 PM EST) Heparin Anti-Xa 0.30 0.30 - 0.70 I Unit/mL LAB COAGULATION METHOD 07/17/2024 7:18 PM EST [facility] Blood Venous blood specimen / Unknown Venipuncture / Unknown 07/17/2024 6:37 PM EST 07/17/2024 7:06 PM EST Geoff [facility] - 07/17/2024 7:18 PM EST Therapeutic range listed is for Unfractionated Heparin. LMW Heparin therapeutic range: 0.50-1.20 IU/mL us Kwesi Guido MD LAB BLOOD ORDERABLES F inal Result Performing Organization Address [facility]/ZIP Co de Phone Number [facility] [address] [place] [address], [place] [phone] * (ABNORMAL) POCT Glucose, blood (07/17/2024 4:15 PM EST) [facility] Glucose POCT 238(H) 70 - 100 mg/dL 07/17/2024 4:16 PM EST [facility] Blood Capillary blood specimen / Unknown 07/17/2024 4:15 PM EST 07/17/2024 4:17 PM EST us Kwesi Guido MD LAB POINT OF C ARE TEST DOCKED DEVICE UNSOLICITED RESULTS Final Result Performing Organization Address [facility] de Phone Number [facility] [address] [place] [address], [place] [phone] * Anti-Xa - Every 6 Hours (07/17/2024 12:29 PM EST) [facility] Heparin Anti-Xa 0.37 0.30 - 0.70 I Unit/mL LAB COAGULATION METHOD 07/17/2024 1:11 PM EST [facility] Blood Venous blood specimen / Unknown Venipuncture / Unknown 07/17/2024 12:29 PM EST 07/17/2024 12:35 PM EST Narrative [facility] - 07/17/2024 1:11 PM EST Therapeutic range listed is for Unfractionated Heparin. LMW Heparin therapeutic range: 0.50-1.20 IU/mL us Kwesi Guido MD LAB BLOOD ORDERABLES F inal Result Performing Organization Address City/[facility]/ZIP Co de Phone Number [facility] [address] [place] [address], [place] [phone] * (ABNORMAL) POCT Glucose, blood (07/17/2024 11:19 AM EST) [facility] Signature Glucose POCT 307(H) 70 - 100 mg/dL 07/17/2024 11:25 AM EST [facility] Blood Capillary blood specimen / Unknown 07/17/2024 11:19 AM EST 07/17/2024 11:26 AM EST us Kwesi Guido MD LAB POINT OF ARE TEST DOCKED DEVICE UNSOLICITED RESULTS Final Result [facility] [address] [place] [address], [place] [phone] * (ABNORMAL) POCT Glucose, blood (07/17/2024 7:57 AM EST) [facility] Glucose POCT 258(H) 70 - 100 mg/dL 07/17/2024 7:58 AM EST [facility] Blood Capillary blood specimen / Unknown 07/17/2024 7:57 AM EST 07/17/2024 7:59 AM EST us Kwesi Guido MD LAB POINT OF ARE TEST DOCKED DEVICE UNSOLICITED RESULTS Final Result [facility] [address] [place] [address], [place] [phone] * (ABNORMAL) Anti-Xa - Every 6 Hours (07/17/2024 6:30 AM EST) [facility] Heparin Anti-Xa 0.20(L) 0.30 - 0.70 I Unit/mL LAB COAGULATION METHOD 07/17/2024 7:43 AM EST [facility] Blood Venous blood specimen / Unknown Venipuncture / Unknown 07/17/2024 6:30 AM EST 07/17/2024 7:06 AM EST [facility] - 07/17/2024 7:43 AM EST Therapeutic range listed is for Unfractionated Heparin. LMW Heparin therapeutic range: 0.50-1.20 IU/mL us Kwesi Guido MD LAB BLOOD ORDERABLES F inal Result [facility] [address] [place] [address], [place] [phone] * (ABNORMAL) CBC auto differential (07/17/2024 6:30 AM EST) WBC 23.0(H) 4.8 - 10.8 K/mcL LAB HEMETOLOGY METHOD 07/17/2024 8:50 AM [facility] RBC 3.30(L) 3.80 - 4.80 M/mcL LAB HEMETOLOGY METHOD 07/17/2024 8:50 AM [facility] Hemoglobin 8.0(L) 11.5 - 16.0 g/dL LAB HEMETOLOGY METHOD 07/17/2024 8:50 AM [facility] Hematocrit 25.6(L) 35.0 - 47.0 % LAB HEMETOLOGY METHOD 07/17/2024 8:50 AM [facility] MCV 78.5(L) 79.0 - 98.0 FL LAB HEMETOLOGY METHOD 07/17/2024 8:50 AM [facility] MCH 24.5(L) 27.0 - 32.0 pcg LAB HEMETOLOGY METHOD 07/17/2024 8:50 AM [facility] MCHC 31.3(L) 32.0 - 37.0 g/dL LAB HEMETOLOGY METHOD 07/17/2024 8:50 AM [facility] RDW 23.9(H) 11.0 - 15.0 % LAB HEMETOLOGY METHOD 07/17/2024 8:50 AM [facility] Platelets 252 130 - 400 K/mcL LAB HEMETOLOGY METHOD 07/17/2024 8:50 AM [facility] MPV 9.9 7.0 - 11.0 FL LAB HEMETOLOGY METHOD 07/17/2024 8:50 AM [facility] NRBC 0.0 <1.0 % LAB HEMETOLOGY METHOD 07/17/2024 8:50 AM [facility] NRBC Absolute 0.00 <0.10 K/mcL LAB HEMETOLOGY METHOD 07/17/2024 8:50 AM [facility] Neutrophils Relative 90.9 % LAB HEMETOLOGY METHOD 07/17/2024 8:50 AM [facility] Lymphocytes Relative 2.6 % LAB HEMETOLOGY METHOD 07/17/2024 8:50 AM [facility] Monocytes Relative 4.8 % LAB HEMETOLOGY METHOD 07/17/2024 8:50 AM [facility] Eosinophils Relative 0.5 % LAB HEMETOLOGY METHOD 07/17/2024 8:50 AM [facility] Basophils Relative 0.1 % LAB HEMETOLOGY METHOD 07/17/2024 8:50 AM [facility] Immature Granulocytes Relative 1.1 % LAB HEMETOLOGY METHOD 07/17/2024 8:50 AM [facility] Neutrophils Absolute 20.92(H) 1.50 - 7.00 K/mcL LAB HEMETOLOGY METHOD 07/17/2024 8:50 AM [facility] Lymphocytes Absolute 0.60(L) 1.00 - 5.00 K/mcL LAB HEMETOLOGY METHOD 07/17/2024 8:50 AM [facility] Monocytes Absolute 1.11(H) 0.20 - 1.00 K/[facility] LAB HEMETOLOGY METHOD 07/17/2024 8:50 AM EST [facility] Eosinophils Absolute 0.11 0.00 - 0.50 K/[facility] LAB HEMETOLOGY METHOD 07/17/2024 8:50 AM [facility] Basophils Absolute 0.03 0.00 - 0.20 K/[facility] LAB HEMETOLOGY METHOD 07/17/2024 8:50 AM EST [facility] Immature Granulocytes Absolute 0.26(H) 0.00 - 0.03 K/[facility] LAB HEMETOLOGY METHOD 07/17/2024 8:50 AM [facility] Blood Venous blood specimen / Unknown Venipuncture / Unknown 07/17/2024 6:30 AM EST 07/17/2024 7:06 AM EST Kwesi Guido MD LAB BLOOD ORDERABLES F inal Result [facility] [address] [place] [address], * (ABNORMAL) CBC - Every 3 Days (07/17/2024 6:30 AM EST) WBC 23.0(H) 4.8 - 10.8 K/[facility] LAB HEMETOLOGY METHOD 07/17/2024 8:12 AM [facility] RBC 3.30(L) 3.80 - 4.80 M/[facility] LAB HEMETOLOGY METHOD 07/17/2024 8:12 AM [facility] Hemoglobin 8.0(L) 11.5 - 16.0 g/dL LAB HEMETOLOGY METHOD 07/17/2024 8:12 AM [facility] Hematocrit 25.6(L) 35.0 - 47.0 % LAB HEMETOLOGY METHOD 07/17/2024 8:12 AM [facility] MCV 78.5(L) 79.0 - 98.0 FL LAB HEMETOLOGY METHOD 07/17/2024 8:12 AM EST [facility] MCH 24.5(L) 27.0 - 32.0 pcg LAB HEMETOLOGY METHOD 07/17/2024 8:12 AM EST [facility] MCHC 31.3(L) 32.0 - 37.0 g/dL LAB HEMETOLOGY METHOD 07/17/2024 8:12 AM EST [facility] RDW 23.9(H) 11.0 - 15.0 % LAB HEMETOLOGY METHOD 07/17/2024 8:12 AM EST [facility] Platelets 252 130 - 400 K/mcL LAB HEMETOLOGY METHOD 07/17/2024 8:12 AM EST [facility] MPV 9.9 7.0 - 11.0 FL LAB HEMETOLOGY METHOD 07/17/2024 8:12 AM EST [facility] NRBC 0.0 <1.0 % LAB HEMETOLOGY METHOD 07/17/2024 8:12 AM EST [facility] NRBC Absolute 0.00 <0.10 K/mcL LAB HEMETOLOGY METHOD 07/17/2024 8:12 AM [facility] Blood Venous blood specimen / Unknown Venipuncture / Unknown 07/17/2024 6:30 AM EST 07/17/2024 7:06 AM EST us Kwesi Guido MD LAB BLOOD ORDERABLES F inal Result [facility] [address] [place] [address], * Phosphorus (07/17/2024 6:30 AM EST) Phosphorus 2.9 2.5 - 4.5 mg/dL LAB CHEMISTRY METHOD 07/17/2024 8:09 AM EST [facility] Blood Venous blood specimen / Unknown Venipuncture / Unknown 07/17/2024 6:30 AM EST 07/17/2024 7:06 AM EST us Kwesi Guido MD LAB BLOOD ORDERABLES F inal Result Performing Organization Address City/[facility]/ZIP Co de Phone Number [facility] [address] [place] [address], [place] [phone] * Magnesium (07/17/2024 6:30 AM EST) [facility] Magnesium 2.2 1.9 - 2.6 mg/dL LAB CHEMISTRY METHOD 07/17/2024 8:09 AM [facility] Blood Venous blood specimen / Unknown Venipuncture / Unknown 07/17/2024 6:30 AM EST 07/17/2024 7:06 AM EST us Kwesi Guido MD LAB BLOOD ORDERABLES F inal Result Performing Organization Address [facility] Co de Phone Number [facility] [address] [place] [address], [place] [phone] * (ABNORMAL) Basic metabolic panel (07/17/2024 6:30 AM EST) [facility] Sodium 133 133 - 145 mmol/L LAB CHEMISTRY METHOD 07/17/2024 8:09 AM EST [facility] Potassium 3.8 3.5 - 5.5 mmol/L LAB CHEMISTRY METHOD 07/17/2024 8:09 AM EST [facility] Chloride 96 96 - 110 mmol/L LAB CHEMISTRY METHOD 07/17/2024 8:09 AM [facility] CO2 26 21 - 32 mmol/L LAB CHEMISTRY METHOD 07/17/2024 8:09 AM EST [facility] Anion Gap 11 3 - 11 LAB CHEMISTRY METHOD 07/17/2024 8:09 AM [facility] Glucose 293(H) 70 - 100 mg/dL LAB CHEMISTRY METHOD 07/17/2024 8:09 AM [facility] BUN 53(H) 5 - 25 mg/dL LAB CHEMISTRY METHOD 07/17/2024 8:09 AM [facility] Creatinine 4.03(H) 0.50 - 1.10 mg/dL LAB CHEMISTRY METHOD 07/17/2024 8:09 AM [facility] eGFR 11(L) >=60 mL/min/1. 73m2 LAB CHEMISTRY METHOD 07/17/2024 8:09 AM [facility] Comment:Calculation based on the??Chronic Kidney Disease Epidemiology Collaboration (CKD-EPI) equation refit??without adjustment for race. BUN/Creatinine Ratio 13.2 LAB CHEMISTRY METHOD 07/17/2024 8:09 AM [facility] Calcium 7.7(L) 8.5 - 10.5 mg/dL LAB CHEMISTRY METHOD 07/17/2024 8:09 AM [facility] Blood Venous blood specimen / Unknown Venipuncture / Unknown 07/17/2024 6:30 AM EST 07/17/2024 7:06 AM EST us Kwesi Guido MD LAB BLOOD ORDERABLES F inal Result [facility] [address] [place] [address], * (ABNORMAL) Anti-Xa - Every 6 Hours (07/17/2024 12:16 AM EST) Heparin Anti-Xa 0.14(L) 0.30 - 0.70 I Unit/mL LAB COAGULATION METHOD 07/17/2024 12:45 AM [facility] Blood Venous blood specimen / Unknown Venipuncture / Unknown 07/17/2024 12:16 AM EST 07/17/2024 12:35 AM EST Narrative [facility] - 07/17/2024 12:45 AM EST Therapeutic range listed is for Unfractionated Heparin. LMW Heparin therapeutic range: 0.50-1.20 IU/mL us Kwesi Guido MD LAB BLOOD ORDERABLES F inal Result Performing Organization Address City/[facility]/ZIP Co de Phone Number [facility] [address] [place] [address], [place] [phone] * (ABNORMAL) POCT Glucose, blood (07/16/2024 8:30 PM EST) Glucose POCT 263(H) 70 - 100 mg/dL 07/16/2024 8:31 PM EST [facility] Blood Capillary blood specimen / Unknown 07/16/2024 8:30 PM EST 07/16/2024 8:33 PM EST us Kwesi Guido MD LAB POINT OF C ARE TEST DOCKED DEVICE UNSOLICITED RESULTS Final Result Performing Organization Address [facility] Co de Phone Number [facility] [facility] [address] [place] [address], [place] [phone] * (ABNORMAL) Anti-Xa - STAT (07/16/2024 5:50 PM EST) Heparin Anti-Xa <0.04(L) 0.30 - 0.70 I Unit/mL LAB COAGULATION METHOD 07/16/2024 6:18 PM EST [facility] Blood Venous blood specimen / Unknown Venipuncture / Unknown 07/16/2024 5:50 PM EST 07/16/2024 6:01 PM EST Narrative [facility] - 07/16/2024 6:18 PM EST Therapeutic range listed is for Unfractionated Heparin. LMW Heparin therapeutic range: 0.50-1.20 IU/mL us Kwesi Guido MD LAB BLOOD ORDERABLES F inal Result Performing Organization Address [facility]/ZIP Co de Phone Number [facility] [address] [place] [address], [place] [phone] * Activated Partial Thromboplastin Time - STAT (07/16/2024 5:50 PM EST) Pathologist [facility] aPTT 31.3 24.1 - 39.3 sec LAB COAGULATION METHOD 07/16/2024 6:13 PM EST [facility] Blood Venous blood specimen / Unknown Venipuncture / Unknown 07/16/2024 5:50 PM EST 07/16/2024 6:01 PM EST us Kwesi Guido MD LAB BLOOD ORDERABLES F inal Result Performing Organization Address [facility] Co de Phone Number [facility] [address] [place] [address], [place] [phone] * (ABNORMAL) POCT Glucose, blood (07/16/2024 4:28 PM EST) [facility] Glucose POCT 170(H) 70 - 100 mg/dL 07/16/2024 4:31 PM EST [facility] Blood Capillary blood specimen / Unknown 07/16/2024 4:28 PM EST 07/16/2024 4:32 PM EST us Kwesi Guido MD LAB POINT OF C ARE TEST DOCKED DEVICE UNSOLICITED RESULTS Final Result Performing Organization Address [facility] Co de Phone Number [facility] [address] [place] [address], [place] [phone] * Vascular US duplex lower extremity venous [...] Signed Date: 07/16/2024 12:33 ET Workstation ID: [id number] Transcribed By: Self Edit Transcribed Date: 07/16/2024 [...] Signed Date: 07/16/2024 12:33 ET Workstation ID: [id number] Transcribed By: Self Edit Transcribed Date: 07/16/2024 12:28 ET us Kwesi Guido MD CV VASCULAR PROCEDURES Final Result * (ABNORMAL) POCT Glucose, blood (07/16/2024 10:42 AM EST) Pathologist [facility] Glucose POCT 105(H) 70 - 100 mg/dL 07/16/2024 10:44 AM EST [facility] Blood Capillary blood specimen / Unknown 07/16/2024 10:42 AM EST 07/16/2024 10:45 AM EST us Kwesi Guido MD LAB POINT OF C ARE TEST DOCKED DEVICE UNSOLICITED RESULTS Final Result [facility] [address] [place] [address], * (ABNORMAL) Basic metabolic panel (07/16/2024 6:45 AM EST) [facility] Sodium 135 133 - 145 mmol/L LAB CHEMISTRY METHOD 07/16/2024 8:40 AM [facility] Potassium 3.8 3.5 - 5.5 mmol/L LAB CHEMISTRY METHOD 07/16/2024 8:40 AM [facility] Chloride 103 96 - 110 mmol/L LAB CHEMISTRY METHOD 07/16/2024 8:40 AM [facility] CO2 18(L) 21 - 32 mmol/L LAB CHEMISTRY METHOD 07/16/2024 8:40 AM [facility] Anion Gap 14(H) 3 - 11 LAB CHEMISTRY METHOD 07/16/2024 8:40 AM [facility] Glucose 100 70 - 100 mg/dL LAB CHEMISTRY METHOD 07/16/2024 8:40 AM [facility] BUN 77(H) 5 - 25 mg/dL LAB CHEMISTRY METHOD 07/16/2024 8:40 AM [facility] Creatinine 5.37(H) 0.50 - 1.10 mg/dL LAB CHEMISTRY METHOD 07/16/2024 8:40 AM [facility] eGFR 8(L) >=60 mL/min/1. 73m2 LAB CHEMISTRY METHOD 07/16/2024 8:40 AM [facility] Comment:Calculation based on the??Chronic Kidney Disease Epidemiology Collaboration (CKD-EPI) equation refit??without adjustment for race. BUN/Creatinine Ratio 14.3 LAB CHEMISTRY METHOD 07/16/2024 8:40 AM [facility] Calcium 8.0(L) 8.5 - 10.5 mg/dL LAB CHEMISTRY METHOD 07/16/2024 8:40 AM [facility] Blood Venous blood specimen / Unknown Venipuncture / Unknown 07/16/2024 6:45 AM EST 07/16/2024 6:58 AM EST us Kwesi Guido MD LAB BLOOD ORDERABLES F inal Result [facility] [address] [place] [address], * (ABNORMAL) Complete blood count (07/16/2024 6:45 AM EST) WBC 27.6(H) 4.8 - 10.8 K/mcL LAB HEMETOLOGY METHOD 07/16/2024 7:16 AM [facility] RBC 3.40(L) 3.80 - 4.80 M/mcL LAB HEMETOLOGY METHOD 07/16/2024 7:16 AM [facility] Hemoglobin 8.4(L) 11.5 - 16.0 g/dL LAB HEMETOLOGY METHOD 07/16/2024 7:16 AM [facility] Hematocrit 25.9(L) 35.0 - 47.0 % LAB HEMETOLOGY METHOD 07/16/2024 7:16 AM EST [facility] MCV 76.2(L) 79.0 - 98.0 FL LAB HEMETOLOGY METHOD 07/16/2024 7:16 AM [facility] MCH 24.7(L) 27.0 - 32.0 pcg LAB HEMETOLOGY METHOD 07/16/2024 7:16 AM EST [facility] MCHC 32.4 32.0 - 37.0 g/dL LAB HEMETOLOGY METHOD 07/16/2024 7:16 AM EST [facility] RDW 23.1(H) 11.0 - 15.0 % LAB HEMETOLOGY METHOD 07/16/2024 7:16 AM [facility] Platelets 258 130 - 400 K/mcL LAB HEMETOLOGY METHOD 07/16/2024 7:16 AM EST [facility] MPV 9.9 7.0 - 11.0 FL LAB HEMETOLOGY METHOD 07/16/2024 7:16 AM EST [facility] NRBC 0.0 <1.0 % LAB HEMETOLOGY METHOD 07/16/2024 7:16 AM [facility] NRBC Absolute 0.00 <0.10 K/mcL LAB HEMETOLOGY METHOD 07/16/2024 7:16 AM [facility] Blood Venous blood specimen / Unknown Venipuncture / Unknown 07/16/2024 6:45 AM EST 07/16/2024 6:58 AM EST us Kwesi Guido MD LAB BLOOD ORDERABLES F inal Result [facility] [address] [place] [address], * POCT Glucose, blood (07/15/2024 8:26 PM EST) Glucose POCT 93 70 - 100 mg/dL 07/15/2024 8:26 PM EST [facility] Blood Capillary blood specimen / Unknown 07/15/2024 8:26 PM EST 07/15/2024 8:27 PM EST us Kwesi Guido MD LAB POINT OF C ARE TEST DOCKED DEVICE UNSOLICITED RESULTS Final Result [facility] [address] [place] [address], [place] [phone] * POCT Glucose, blood (07/15/2024 4:30 PM EST) [facility] Glucose POCT 92 70 - 100 mg/dL 07/15/2024 4:31 PM EST [facility] Blood Capillary blood specimen / Unknown 07/15/2024 4:30 PM EST 07/15/2024 4:33 PM EST us Kwesi Guido MD LAB POINT OF C ARE TEST DOCKED DEVICE UNSOLICITED RESULTS Final Result Performing Organization Address City/[facility]/ZIP Co de Phone Number [facility] [address] [place] [address], [place] [phone] * IR Insert Tunneled CVC wo Port or Pump More 5yrs Left (07/15/2024 3:36 PM EST) Anatomical Region Laterality Modality Left Interventional R adiology 07/15/2024 3:45 PM EST Impressions 07/15/2024 3:47 PM EST Successful placement of a 14 American 23 cm dual-lumen cuffed tunneled dialysis catheter with the tip at the cavoatrial junction. This line may be used immediately. -------- FINAL REPORT -------- Dictated By: Fela Palomo Dictated Date: 07/15/2024 15:45 ET Assigned Physician: Fela Palomo Reviewed and Electronically Signed By: Fela Palomo Signed Date: 07/15/2024 15:47 ET Workstation ID: [id number] Transcribed By: Self Edit Transcribed Date: 07/15/2024 [...] The needle was exchanged for the 4 American transition sheath. A 0.035 wire was then advanced through ??the sheath and into the inferior vena cava under fluoroscopy. The sheath was then exchanged for a 7 American vascular dilator. Attention was then turned to the right upper chest and the appropriate area was anesthetized with 2% lidocaine. A small dermatotomy was performed and then a tunnel was created from the dermatotomy to the initial venous access site. The catheter was advanced through the tunnel. ??The initial venous access site was then serially dilated up to a 15 American peel-away sheath. The catheter was then advanced [...] The needle was exchanged for the 4 American transition sheath. A 0.035wire was then advanced through the sheath and into the inferior vena cavaunder fluoroscopy. The sheath was then exchanged for a 7 American vasculardilator. Attention was then turned to the right upper chest and the appropriatearea was anesthetized with 2% lidocaine. A small dermatotomy was performedand then a tunnel was created from the dermatotomy to the initial venousaccess site. The catheter was advanced through the tunnel. The initialvenous access site was then serially dilated up to a 15 American peel-awaysheath. The catheter was then advanced through [...] mGy IMPRESSION: Successful placement of a 14 American 23 cm dual-lumen cuffed tunneleddialysis catheter with the tip at the cavoatrial junction. This line maybe used immediately. -------- FINAL REPORT -------- Dictated By: Fela Palomo Dictated Date: 07/15/2024 15:45 ET Assigned Physician: Fela Palomo Reviewed and Electronically Signed By: Fela Palomo Signed Date: 07/15/2024 15:47 ET Workstation ID: [id number] Transcribed By: Self Edit Transcribed Date: 07/15/2024 15:45 ET Chencho Wayne MD IMG IR PROCEDURES Final Result * POCT Glucose, blood (07/15/2024 10:57 AM EST) [facility] Glucose POCT 98 70 - 100 mg/dL 07/15/2024 10:58 AM [facility] Blood Capillary blood specimen / Unknown 07/15/2024 10:57 AM EST 07/15/2024 10:59 AM EST Kwesi Guido MD LAB POINT OF C ARE TEST DOCKED DEVICE UNSOLICITED RESULTS Final Result [facility] [address] [place] [address], * (ABNORMAL) Basic metabolic panel (07/15/2024 8:56 AM EST) [facility] Sodium 132(L) 133 - 145 mmol/L LAB CHEMISTRY METHOD 07/15/2024 10:15 AM EST [facility] Potassium 3.8 3.5 - 5.5 mmol/L LAB CHEMISTRY METHOD 07/15/2024 10:15 AM EST [facility] Chloride 104 96 - 110 mmol/L LAB CHEMISTRY METHOD 07/15/2024 10:15 AM EST [facility] CO2 16(L) 21 - 32 mmol/L LAB CHEMISTRY METHOD 07/15/2024 10:15 AM EST [facility] Anion Gap 12(H) 3 - 11 LAB CHEMISTRY METHOD 07/15/2024 10:15 AM [facility] Glucose 80 70 - 100 mg/dL LAB CHEMISTRY METHOD 07/15/2024 10:15 AM [facility] BUN 97(H) 5 - 25 mg/dL LAB CHEMISTRY METHOD 07/15/2024 10:15 AM [facility] Creatinine 6.70(H) 0.50 - 1.10 mg/dL LAB CHEMISTRY METHOD 07/15/2024 10:15 AM [facility] eGFR 6(L) >=60 mL/min/1. 73m2 LAB CHEMISTRY METHOD 07/15/2024 10:15 AM [facility] Comment:Calculation based on the??Chronic Kidney Disease Epidemiology Collaboration (CKD-EPI) equation refit??without adjustment for race. BUN/Creatinine Ratio 14.5 LAB CHEMISTRY METHOD 07/15/2024 10:15 AM [facility] Calcium 8.4(L) 8.5 - 10.5 mg/dL LAB CHEMISTRY METHOD 07/15/2024 10:15 AM [facility] Blood Venous blood specimen / Unknown Venipuncture / Unknown 07/15/2024 8:56 AM EST 07/15/2024 9:43 AM EST us Kwesi Guido MD LAB BLOOD ORDERABLES F inal Result [facility] [address] [place] [address], * Hepatitis B surface antigen with reflex to confirmation (07/15/2024 8:56 AM EST) Hepatitis B Surface Ag Negative Negative LAB CHEMISTRY METHOD 07/15/2024 10:36 AM [facility] Blood Venous blood specimen / Unknown Venipuncture / Unknown 07/15/2024 8:56 AM EST 07/15/2024 9:43 AM EST [facility] - 07/15/2024 10:36 AM EST Over the counter supplements containing high doses of biotin may interfere with this assay. ??If interference is suspected, patients shoud be retested after refraining from biotin supplements for 72 hours. us Kwesi Guido MD LAB BLOOD ORDERABLES F inal Result Performing Organization Address [facility] Co de Phone Number [facility] [address] [place] [address], [place] [phone] * Hepatitis B surface antibody quantitative (07/15/2024 8:56 AM EST) [facility] Hepatitis B Surface Ab Negative Negative LAB CHEMISTRY METHOD 07/15/2024 10:25 AM EST [facility] Hepatitis B Surface Ab Quantitative <3.1 mIU/mL LAB CHEMISTRY METHOD 07/15/2024 10:25 AM EST [facility] Blood Venous blood specimen / Unknown Venipuncture / Unknown 07/15/2024 8:56 AM EST 07/15/2024 9:43 AM EST [facility] - 07/15/2024 10:25 AM EST >=10 mIU/mL is considered to be consistent with immunity. us Kwesi Guido MD LAB BLOOD ORDERABLES F inal Result Performing Organization Address [facility] Co de Phone Number [facility] [address] [place] [address], [place] [phone] * (ABNORMAL) Renal function panel (07/15/2024 8:56 AM EST) [facility] Sodium 132(L) 133 - 145 mmol/L LAB CHEMISTRY METHOD 07/15/2024 10:26 AM EST [facility] Potassium 3.8 3.5 - 5.5 mmol/L LAB CHEMISTRY METHOD 07/15/2024 10:26 AM [facility] Chloride 104 96 - 110 mmol/L LAB CHEMISTRY METHOD 07/15/2024 10:26 AM [facility] CO2 16(L) 21 - 32 mmol/L LAB CHEMISTRY METHOD 07/15/2024 10:26 AM [facility] Anion Gap 12(H) 3 - 11 LAB CHEMISTRY METHOD 07/15/2024 10:26 AM [facility] Glucose 80 70 - 100 mg/dL LAB CHEMISTRY METHOD 07/15/2024 10:26 AM [facility] BUN 97(H) 5 - 25 mg/dL LAB CHEMISTRY METHOD 07/15/2024 10:26 AM [facility] Creatinine 6.70(H) 0.50 - 1.10 mg/dL LAB CHEMISTRY METHOD 07/15/2024 10:26 AM [facility] eGFR 6(L) >=60 mL/min/1. 73m2 LAB CHEMISTRY METHOD 07/15/2024 10:26 AM [facility] Comment:Calculation based on the??Chronic Kidney Disease Epidemiology Collaboration (CKD-EPI) equation refit??without adjustment for race. BUN/Creatinine Ratio 14.5 LAB CHEMISTRY METHOD 07/15/2024 10:26 AM [facility] Albumin 3.3 3.2 - 5.0 g/dL LAB CHEMISTRY METHOD 07/15/2024 10:26 AM [facility] Comment:Results verified by repeat testing Calcium 8.4(L) 8.5 - 10.5 mg/dL LAB CHEMISTRY METHOD 07/15/2024 10:26 AM [facility] Phosphorus 4.2 2.5 - 4.5 mg/dL LAB CHEMISTRY METHOD 07/15/2024 10:26 AM [facility] Blood Venous blood specimen / Unknown Venipuncture / Unknown 07/15/2024 8:56 AM EST 07/15/2024 9:43 AM EST Chencho Wayne MD LAB BLOOD ORDERABLES Final Resu lt [facility] [address] [place] [address], [place] [phone] * POCT Glucose, blood (07/15/2024 8:03 AM EST) Glucose POCT 96 70 - 100 mg/dL 07/15/2024 8:05 AM [facility] Blood Capillary blood specimen / Unknown 07/15/2024 8:03 AM EST 07/15/2024 8:06 AM EST Kwesi Guido MD LAB POINT OF C ARE TEST DOCKED DEVICE UNSOLICITED RESULTS Final Result Performing Organization Address City/[facility]/ZIP Co de Phone Number [facility] [address] [place] [address], [place] [phone] * (ABNORMAL) RBC morphology review (07/15/2024 6:56 AM EST) Pathologist [facility] Rbc Morphology Present( A) Consistent with indices, Normal for LAB HEMETOLOGY METHOD 07/15/2024 8:54 AM [facility] Platelet Morphology - WAM See Note(A) Normal LAB HEMETOLOGY METHOD 07/15/2024 8:54 AM [facility] Comment:PLT: Normal Polychromasia Present Present( A) (none) LAB HEMETOLOGY METHOD 07/15/2024 8:54 AM [facility] Pappenheimer Bodies Present Present( A) (none) LAB HEMETOLOGY METHOD 07/15/2024 8:54 AM [facility] Schistocytes Present < 5%(A) (none) LAB HEMETOLOGY METHOD 07/15/2024 8:54 AM [facility] Blood Venous blood specimen / Unknown Venipuncture / Unknown 07/15/2024 6:56 AM EST 07/15/2024 7:52 AM EST Kwesi Guido MD LAB BLOOD ORDERABLES F inal Result [facility] [address] [place] [address], * (ABNORMAL) CBC auto differential (07/15/2024 6:56 AM EST) WBC 23.7(H) 4.8 - 10.8 K/mcL LAB HEMETOLOGY METHOD 07/15/2024 8:54 AM [facility] RBC 3.10(L) 3.80 - 4.80 M/mcL LAB HEMETOLOGY METHOD 07/15/2024 8:54 AM [facility] Hemoglobin 7.5(L) 11.5 - 16.0 g/dL LAB HEMETOLOGY METHOD 07/15/2024 8:54 AM [facility] Hematocrit 23.6(L) 35.0 - 47.0 % LAB HEMETOLOGY METHOD 07/15/2024 8:54 AM [facility] MCV 75.9(L) 79.0 - 98.0 FL LAB HEMETOLOGY METHOD 07/15/2024 8:54 AM [facility] MCH 24.1(L) 27.0 - 32.0 pcg LAB HEMETOLOGY METHOD 07/15/2024 8:54 AM [facility] MCHC 31.8(L) 32.0 - 37.0 g/dL LAB HEMETOLOGY METHOD 07/15/2024 8:54 AM [facility] RDW 22.7(H) 11.0 - 15.0 % LAB HEMETOLOGY METHOD 07/15/2024 8:54 AM [facility] Platelets 246 130 - 400 K/mcL LAB HEMETOLOGY METHOD 07/15/2024 8:54 AM [facility] MPV 10.3 7.0 - 11.0 FL LAB HEMETOLOGY METHOD 07/15/2024 8:54 AM [facility] NRBC 0.0 <1.0 % LAB HEMETOLOGY METHOD 07/15/2024 8:54 AM [facility] NRBC Absolute 0.00 <0.10 K/mcL LAB HEMETOLOGY METHOD 07/15/2024 8:54 AM [facility] Neutrophils Relative 87.4 % LAB HEMETOLOGY METHOD 07/15/2024 8:54 AM [facility] Comment:This is an appended report. These results have been appended to a previously preliminary verified report. Lymphocytes Relative 3.5 % LAB HEMETOLOGY METHOD 07/15/2024 8:54 AM [facility] Comment:This is an appended report. These results have been appended to a previously preliminary verified report. Monocytes Relative 4.8 % LAB HEMETOLOGY METHOD 07/15/2024 8:54 AM [facility] Comment:This is an appended report. These results have been appended to a previously preliminary verified report. Eosinophils Relative 1.7 % LAB HEMETOLOGY METHOD 07/15/2024 8:54 AM [facility] Comment:This is an appended report. These results have been appended to a previously preliminary verified report. Basophils Relative 0.2 % LAB HEMETOLOGY METHOD 07/15/2024 8:54 AM [facility] Comment:This is an appended report. These results have been appended to a previously preliminary verified report. Immature Granulocytes Relative 2.4 % LAB HEMETOLOGY METHOD 07/15/2024 8:54 AM [facility] Comment:This is an appended report. These results have been appended to a previously preliminary verified report. Neutrophils Absolute 20.75(H) 1.50 - 7.00 K/[facility] LAB HEMETOLOGY METHOD 07/15/2024 8:54 AM EST [facility] Comment:This is an appended report. These results have been appended to a previously preliminary verified report. Lymphocytes Absolute 0.84(L) 1.00 - 5.00 K/mcL LAB HEMETOLOGY METHOD 07/15/2024 8:54 AM EST [facility] Comment:This is an appended report. These results have been appended to a previously preliminary verified report. Monocytes Absolute 1.13(H) 0.20 - 1.00 [facility] LAB HEMETOLOGY METHOD 07/15/2024 8:54 AM EST [facility] Comment:This is an appended report. These results have been appended to a previously preliminary verified report. Eosinophils Absolute 0.41 0.00 - 0.50 [facility] LAB HEMETOLOGY METHOD 07/15/2024 8:54 AM EST [facility] Comment:This is an appended report. These results have been appended to a previously preliminary verified report. Basophils Absolute 0.05 0.00 - 0.20 [facility] LAB HEMETOLOGY METHOD 07/15/2024 8:54 AM EST [facility] Comment:This is an appended report. These results have been appended to a previously preliminary verified report. Immature Granulocytes Absolute 0.56(H) 0.00 - 0.03 [facility] LAB HEMETOLOGY METHOD 07/15/2024 8:54 AM EST [facility] Comment:This is an appended report. These results have been appended to a previously preliminary verified report. Blood Venous blood specimen / Unknown Venipuncture / Unknown 07/15/2024 6:56 AM EST 07/15/2024 7:52 AM EST us Kwesi Guido MD LAB BLOOD ORDERABLES F inal Result [facility] [address] [place] [address], * (ABNORMAL) Prothrombin time with INR (07/15/2024 6:56 AM EST) [facility] Protime 16.4(H) 10.6 - 13.9 sec LAB COAGULATION METHOD 07/15/2024 8:16 AM EST [facility] INR 1.3 LAB COAGULATION METHOD 07/15/2024 8:16 AM EST [facility] Blood Venous blood specimen / Unknown Venipuncture / Unknown 07/15/2024 6:56 AM EST 07/15/2024 7:52 AM EST us Kwesi Guido MD LAB BLOOD ORDERABLES F inal Result Performing Organization Address City/[facility]/ZIP Co de Phone Number [facility] [address] [place] [address], * Magnesium (07/15/2024 6:56 AM EST) [facility] Magnesium 2.2 1.9 - 2.6 mg/dL LAB CHEMISTRY METHOD 07/15/2024 8:48 AM EST [facility] Blood Venous blood specimen / Unknown Venipuncture / Unknown 07/15/2024 6:56 AM EST 07/15/2024 7:52 AM EST us Kwesi Guido MD LAB BLOOD ORDERABLES F inal Result [facility] [address] [place] [address], [place] [phone] * (ABNORMAL) Basic metabolic panel (07/15/2024 6:56 AM EST) [facility] Sodium 134 133 - 145 mmol/L LAB CHEMISTRY METHOD 07/15/2024 8:58 AM EST [facility] Potassium 3.8 3.5 - 5.5 mmol/L LAB CHEMISTRY METHOD 07/15/2024 8:58 AM [facility] Chloride 104 96 - 110 mmol/L LAB CHEMISTRY METHOD 07/15/2024 8:58 AM [facility] CO2 15(L) 21 - 32 mmol/L LAB CHEMISTRY METHOD 07/15/2024 8:58 AM [facility] Anion Gap 15(H) 3 - 11 LAB CHEMISTRY METHOD 07/15/2024 8:58 AM [facility] Glucose 82 70 - 100 mg/dL LAB CHEMISTRY METHOD 07/15/2024 8:58 AM [facility] BUN 95(H) 5 - 25 mg/dL LAB CHEMISTRY METHOD 07/15/2024 8:58 AM [facility] Creatinine 6.68(H) 0.50 - 1.10 mg/dL LAB CHEMISTRY METHOD 07/15/2024 8:58 AM [facility] eGFR 6(L) >=60 mL/min/1. 73m2 LAB CHEMISTRY METHOD 07/15/2024 8:58 AM [facility] Comment:Calculation based on the??Chronic Kidney Disease Epidemiology Collaboration (CKD-EPI) equation refit??without adjustment for race. BUN/Creatinine Ratio 14.2 LAB CHEMISTRY METHOD 07/15/2024 8:58 AM [facility] Calcium 8.3(L) 8.5 - 10.5 mg/dL LAB CHEMISTRY METHOD 07/15/2024 8:58 AM [facility] Blood Venous blood specimen / Unknown Venipuncture / Unknown 07/15/2024 6:56 AM EST 07/15/2024 7:52 AM EST us Kwesi Guido MD LAB BLOOD ORDERABLES F inal Result [facility] [address] [place] [address], * (ABNORMAL) POCT Glucose, blood (07/14/2024 8:07 PM EST) Glucose POCT 122(H) 70 - 100 mg/dL 07/14/2024 8:07 PM EST [facility] Blood Capillary blood specimen / Unknown 07/14/2024 8:07 PM EST 07/14/2024 8:09 PM EST us Kwesi Guido MD LAB POINT OF ARE TEST DOCKED DEVICE UNSOLICITED RESULTS Final Result [facility] [address] [place] [address], [place] [phone] * (ABNORMAL) POCT Glucose, blood (07/14/2024 4:26 PM EST) Glucose POCT 152(H) 70 - 100 mg/dL 07/14/2024 4:27 PM EST [facility] Blood Capillary blood specimen / Unknown 07/14/2024 4:26 PM EST 07/14/2024 4:28 PM EST us Kwesi Guido MD LAB POINT OF ARE TEST DOCKED DEVICE UNSOLICITED RESULTS Final Result [facility] [address] [place] [address], [place] [phone] * POCT Glucose, blood (07/14/2024 11:32 AM EST) Glucose POCT 100 70 - 100 mg/dL 07/14/2024 11:37 AM EST [facility] Blood Capillary blood specimen / Unknown 07/14/2024 11:32 AM EST 07/14/2024 11:38 AM EST us Kwesi Guido MD LAB POINT OF ARE TEST DOCKED DEVICE UNSOLICITED RESULTS Final Result Performing Organization Address City/[facility]/ZIP Co de Phone Number [facility] [address] [place] [address], [place] [phone] * POCT Glucose, blood (07/14/2024 8:19 AM EST) Glucose POCT 72 70 - 100 mg/dL 07/14/2024 8:38 AM EST [facility] Blood Capillary blood specimen / Unknown 07/14/2024 8:19 AM EST 07/14/2024 8:39 AM EST us Kwesi Guido MD LAB POINT OF ARE TEST DOCKED DEVICE UNSOLICITED RESULTS Final Result Performing Organization Address [facility]/ZIP Co de Phone Number [facility] [address] [place] [address], [place] [phone] * Extractable Nuclear Antibodies Profile (07/14/2024 6:00 AM EST) SM Ab Negative Negative LAB CHEMISTRY METHOD 07/17/2024 12:29 PM EST [facility] SM Antibody Quant 2 <20 units LAB CHEMISTRY METHOD 07/17/2024 12:29 PM EST [facility] [employer] Ab Negative Negative LAB CHEMISTRY METHOD 07/17/2024 12:29 PM EST [facility] [employer] Antibody Quant 1 <20 units LAB CHEMISTRY METHOD 07/17/2024 12:29 PM EST [facility] Blood Venous blood specimen / Unknown 07/14/2024 6:00 AM EST 07/14/2024 6:35 AM EST us Kwesi Guido MD LAB BLOOD ORDERABLES F inal Result [facility] [address] [place] [address], [place] [phone] * C4 complement (07/14/2024 6:00 AM EST) [facility] C4 Complement 18 16 - 47 mg/dL LAB CHEMISTRY METHOD 07/14/2024 11:20 AM EST [facility] Blood Venous blood specimen / Unknown 07/14/2024 6:00 AM EST 07/14/2024 6:35 AM EST us Kwesi Guido MD LAB BLOOD ORDERABLES F inal Result [facility] [address] [place] [address], [place] [phone] * (ABNORMAL) C3 complement (07/14/2024 6:00 AM EST) [facility] C3 Complement 78(L) 88 - 201 mg/dL LAB CHEMISTRY METHOD 07/14/2024 11:20 AM EST [facility] Blood Venous blood specimen / Unknown 07/14/2024 6:00 AM EST 07/14/2024 6:35 AM EST us Kwesi Guido MD LAB BLOOD ORDERABLES F inal Result [facility] [address] [place] [address], [place] [phone] * (ABNORMAL) Anti-neutrophilic cytoplasmic antibody (07/14/2024 6:00 AM EST) [facility] Myeloperoxidase Ab Negative Negative LAB CHEMISTRY METHOD 07/20/2024 12:10 PM EST [facility] Myeloperoxidase Ab, Quant 2 <=20 units LAB CHEMISTRY METHOD 07/20/2024 12:10 PM EST [facility] Proteinase-3 Ab Positive(A ) Negative LAB CHEMISTRY METHOD 07/20/2024 12:10 PM [facility] Proteinase-3 Ab Quant 162(H) <=20 units LAB CHEMISTRY METHOD 07/20/2024 12:10 PM [facility] Blood Venous blood specimen / Unknown 07/14/2024 6:00 AM EST 07/14/2024 6:35 AM EST us Kwesi Guido MD LAB BLOOD ORDERABLES F inal Result [facility] [address] [place] [address], [place] [phone] * (ABNORMAL) CBC auto differential (07/14/2024 6:00 AM EST) WBC 19.8(H) 4.8 - 10.8 K/mcL LAB HEMETOLOGY METHOD 07/14/2024 6:56 AM [facility] RBC 2.90(L) 3.80 - 4.80 M/mcL LAB HEMETOLOGY METHOD 07/14/2024 6:56 AM [facility] Hemoglobin 7.0(L) 11.5 - 16.0 g/dL LAB HEMETOLOGY METHOD 07/14/2024 6:56 AM [facility] Hematocrit 21.8(L) 35.0 - 47.0 % LAB HEMETOLOGY METHOD 07/14/2024 6:56 AM [facility] MCV 75.7(L) 79.0 - 98.0 FL LAB HEMETOLOGY METHOD 07/14/2024 6:56 AM [facility] MCH 24.3(L) 27.0 - 32.0 pcg LAB HEMETOLOGY METHOD 07/14/2024 6:56 AM [facility] MCHC 32.1 32.0 - 37.0 g/dL LAB HEMETOLOGY METHOD 07/14/2024 6:56 AM [facility] RDW 21.6(H) 11.0 - 15.0 % LAB HEMETOLOGY METHOD 07/14/2024 6:56 AM [facility] Platelets 193 130 - 400 K/mcL LAB HEMETOLOGY METHOD 07/14/2024 6:56 AM [facility] MPV 9.9 7.0 - 11.0 FL LAB HEMETOLOGY METHOD 07/14/2024 6:56 AM [facility] NRBC 0.0 <1.0 % LAB HEMETOLOGY METHOD 07/14/2024 6:56 AM [facility] NRBC Absolute 0.00 <0.10 K/mcL LAB HEMETOLOGY METHOD 07/14/2024 6:56 AM [facility] Neutrophils Relative 85.1 % LAB HEMETOLOGY METHOD 07/14/2024 6:56 AM [facility] Lymphocytes Relative 3.7 % LAB HEMETOLOGY METHOD 07/14/2024 6:56 AM [facility] Monocytes Relative 6.1 % LAB HEMETOLOGY METHOD 07/14/2024 6:56 AM [facility] Eosinophils Relative 2.5 % LAB HEMETOLOGY METHOD 07/14/2024 6:56 AM [facility] Basophils Relative 0.2 % LAB HEMETOLOGY METHOD 07/14/2024 6:56 AM [facility] Immature Granulocytes Relative 2.4 % LAB HEMETOLOGY METHOD 07/14/2024 6:56 AM [facility] Neutrophils Absolute 16.82(H) 1.50 - 7.00 K/mcL LAB HEMETOLOGY METHOD 07/14/2024 6:56 AM [facility] Lymphocytes Absolute 0.74(L) 1.00 - 5.00 K/mcL LAB HEMETOLOGY METHOD 07/14/2024 6:56 AM [facility] Monocytes Absolute 1.20(H) 0.20 - 1.00 K/[facility] LAB HEMETOLOGY METHOD 07/14/2024 6:56 AM EST [facility] Eosinophils Absolute 0.50 0.00 - 0.50 K/[facility] LAB HEMETOLOGY METHOD 07/14/2024 6:56 AM EST [facility] Basophils Absolute 0.04 0.00 - 0.20 K/[facility] LAB HEMETOLOGY METHOD 07/14/2024 6:56 AM EST [facility] Immature Granulocytes Absolute 0.48(H) 0.00 - 0.03 K/[facility] LAB HEMETOLOGY METHOD 07/14/2024 6:56 AM EST [facility] Blood Venous blood specimen / Unknown 07/14/2024 6:00 AM EST 07/14/2024 6:36 AM EST us Kwesi Guido MD LAB BLOOD ORDERABLES F inal Result [facility] [address] [place] [address], [place] [phone] * Magnesium (07/14/2024 6:00 AM EST) [facility] Magnesium 2.0 1.9 - 2.6 mg/dL LAB CHEMISTRY METHOD 07/14/2024 7:23 AM EST [facility] Blood Venous blood specimen / Unknown 07/14/2024 6:00 AM EST 07/14/2024 6:35 AM EST us Kwesi Guido MD LAB BLOOD ORDERABLES F inal Result [facility] [address] [place] [address], [place] [phone] * (ABNORMAL) Basic metabolic panel (07/14/2024 6:00 AM EST) Sodium 132(L) 133 - 145 mmol/L LAB CHEMISTRY METHOD 07/14/2024 7:38 AM [facility] Potassium 3.4(L) 3.5 - 5.5 mmol/L LAB CHEMISTRY METHOD 07/14/2024 7:38 AM [facility] Chloride 104 96 - 110 mmol/L LAB CHEMISTRY METHOD 07/14/2024 7:38 AM [facility] CO2 18(L) 21 - 32 mmol/L LAB CHEMISTRY METHOD 07/14/2024 7:38 AM [facility] Anion Gap 10 3 - 11 LAB CHEMISTRY METHOD 07/14/2024 7:38 AM [facility] Glucose 69(L) 70 - 100 mg/dL LAB CHEMISTRY METHOD 07/14/2024 7:38 AM [facility] BUN 84(H) 5 - 25 mg/dL LAB CHEMISTRY METHOD 07/14/2024 7:38 AM [facility] Creatinine 5.84(H) 0.50 - 1.10 mg/dL LAB CHEMISTRY METHOD 07/14/2024 7:38 AM [facility] eGFR 7(L) >=60 mL/min/1. 73m2 LAB CHEMISTRY METHOD 07/14/2024 7:38 AM [facility] Comment:Calculation based on the??Chronic Kidney Disease Epidemiology Collaboration (CKD-EPI) equation refit??without adjustment for race. BUN/Creatinine Ratio 14.4 LAB CHEMISTRY METHOD 07/14/2024 7:38 AM [facility] Calcium 8.2(L) 8.5 - 10.5 mg/dL LAB CHEMISTRY METHOD 07/14/2024 7:38 AM [facility] Blood Venous blood specimen / Unknown 07/14/2024 6:00 AM EST 07/14/2024 6:35 AM EST Kwesi Guido MD LAB BLOOD ORDERABLES F inal Result Performing Organization Address [facility] Co de Phone Number [facility] [address] [place] [address], [place] [phone] * (ABNORMAL) POCT Glucose, blood (07/13/2024 8:53 PM EST) Glucose POCT 153(H) 70 - 100 mg/dL 07/13/2024 8:55 PM EST [facility] Blood Capillary blood specimen / Unknown 07/13/2024 8:53 PM EST 07/13/2024 8:56 PM EST us Kwesi Guido MD LAB POINT OF C ARE TEST DOCKED DEVICE UNSOLICITED RESULTS Final Result Performing Organization Address [facility] Co de Phone Number [facility] [address] [place] [address], [place] [phone] * Transfuse RBC (07/13/2024 7:03 PM EST) us Kwesi Guido MD BLOOD TRANSFUSION ORDE RABLES Final Result * Transfuse RBC: 1 Units (07/13/2024 7:03 PM EST) us Kwesi Guido MD BLOOD TRANSFUSION ORDE RABLES Final Result * (ABNORMAL) POCT Glucose, blood (07/13/2024 3:53 PM EST) Glucose POCT 115(H) 70 - 100 mg/dL 07/13/2024 3:56 PM EST [facility] Blood Capillary blood specimen / Unknown 07/13/2024 3:53 PM EST 07/13/2024 3:57 PM EST us Kwesi Guido MD LAB POINT OF C ARE TEST DOCKED DEVICE UNSOLICITED RESULTS Final Result Performing Organization Address [facility] Co de Phone Number [facility] [address] [place] [address], * (ABNORMAL) POCT Glucose, blood (07/13/2024 10:58 AM EST) [facility] Glucose POCT 106(H) 70 - 100 mg/dL 07/13/2024 10:58 AM EST [facility] Blood Capillary blood specimen / Unknown 07/13/2024 10:58 AM EST 07/13/2024 10:59 AM EST us Kwesi Guido MD LAB POINT OF C ARE TEST DOCKED DEVICE UNSOLICITED RESULTS Final Result [facility] [address] [place] [address], * Prepare RBC: 1 Units (07/13/2024 10:44 AM EST) [facility] Product Code [id number] 07/13/2024 12:34 PM [facility] Unit Number [id number] 07/13/19 12:34 PM [facility] Crossmatch Compatible 07/13/2024 11:06 AM [facility] Dispense Status Transfused 07/13/2024 12:34 PM [facility] Unit ABO Rh OPOS 07/13/2024 12:34 PM [facility] Unit Expiration Date Time [id number] 07/13/2024 12:34 PM [facility] Unit Blood Type 5100 07/13/2024 12:34 PM [facility] Blood Venous blood specimen / Unknown 07/13/2024 10:44 AM EST 07/13/2024 8:32 AM EST us Kwesi Guido MD BLOOD BANK PRODUCT ORD ERABLES Final Result Performing Organization Address City/[facility]/ZIP Co de Phone Number [facility] [address] [place] [address], [place] [phone] * Type and screen (07/13/2024 8:24 AM EST) ABO Group O 07/13/2024 10:29 AM EST [facility] Rh Type Positive 07/13/2024 10:29 AM EST [facility] Antibody Screen Negative 07/13/2024 10:29 AM EST [facility] Blood Venous blood specimen / Unknown Venipuncture / Unknown 07/13/2024 8:24 AM EST 07/13/2024 8:32 AM EST us Kwesi Guido MD LAB BLOOD BANK TEST OR DERABLES Final Result Performing Organization Address City/[facility]/ZIP Co de Phone Number [facility] [address] [place] [address], [place] [phone] * POCT Glucose, blood (07/13/2024 8:13 AM EST) [facility] Glucose POCT 87 70 - 100 mg/dL 07/13/2024 8:20 AM EST [facility] Blood Capillary blood specimen / Unknown 07/13/2024 8:13 AM EST 07/13/2024 8:21 AM EST us Kwesi Guido MD LAB POINT OF C ARE TEST DOCKED DEVICE UNSOLICITED RESULTS Final Result Performing Organization Address City/[facility]/ZIP Co de Phone Number [facility] [address] [place] [address], [place] [phone] * (ABNORMAL) CBC auto differential (07/13/2024 6:38 AM EST) [facility] WBC 20.6(H) 4.8 - 10.8 K/mcL LAB HEMETOLOGY METHOD 07/13/2024 7:14 AM [facility] RBC 2.70(L) 3.80 - 4.80 M/mcL LAB HEMETOLOGY METHOD 07/13/2024 7:14 AM [facility] Hemoglobin 6.5(L) 11.5 - 16.0 g/dL LAB HEMETOLOGY METHOD 07/13/2024 7:14 AM [facility] Hematocrit 20.3(L) 35.0 - 47.0 % LAB HEMETOLOGY METHOD 07/13/2024 7:14 AM [facility] MCV 74.4(L) 79.0 - 98.0 FL LAB HEMETOLOGY METHOD 07/13/2024 7:14 AM [facility] MCH 23.8(L) 27.0 - 32.0 pcg LAB HEMETOLOGY METHOD 07/13/2024 7:14 AM [facility] MCHC 32.0 32.0 - 37.0 g/dL LAB HEMETOLOGY METHOD 07/13/2024 7:14 AM [facility] RDW 21.4(H) 11.0 - 15.0 % LAB HEMETOLOGY METHOD 07/13/2024 7:14 AM [facility] Platelets 199 130 - 400 K/mcL LAB HEMETOLOGY METHOD 07/13/2024 7:14 AM [facility] MPV 9.9 7.0 - 11.0 FL LAB HEMETOLOGY METHOD 07/13/2024 7:14 AM [facility] NRBC 0.0 <1.0 % LAB HEMETOLOGY METHOD 07/13/2024 7:14 AM [facility] NRBC Absolute 0.00 <0.10 K/mcL LAB HEMETOLOGY METHOD 07/13/2024 7:14 AM [facility] Neutrophils Relative 84.4 % LAB HEMETOLOGY METHOD 07/13/2024 7:14 AM [facility] Lymphocytes Relative 3.9 % LAB HEMETOLOGY METHOD 07/13/2024 7:14 AM [facility] Monocytes Relative 6.3 % LAB HEMETOLOGY METHOD 07/13/2024 7:14 AM [facility] Eosinophils Relative 3.3 % LAB HEMETOLOGY METHOD 07/13/2024 7:14 AM [facility] Basophils Relative 0.1 % LAB HEMETOLOGY METHOD 07/13/2024 7:14 AM [facility] Immature Granulocytes Relative 2.0 % LAB HEMETOLOGY METHOD 07/13/2024 7:14 AM [facility] Neutrophils Absolute 17.36(H) 1.50 - 7.00 K/mcL LAB HEMETOLOGY METHOD 07/13/2024 7:14 AM [facility] Lymphocytes Absolute 0.81(L) 1.00 - 5.00 K/mcL LAB HEMETOLOGY METHOD 07/13/2024 7:14 AM [facility] Monocytes Absolute 1.30(H) 0.20 - 1.00 K/mcL LAB HEMETOLOGY METHOD 07/13/2024 7:14 AM [facility] Eosinophils Absolute 0.67(H) 0.00 - 0.50 K/mcL LAB HEMETOLOGY METHOD 07/13/2024 7:14 AM [facility] Basophils Absolute 0.03 0.00 - 0.20 K/mcL LAB HEMETOLOGY METHOD 07/13/2024 7:14 AM [facility] Immature Granulocytes Absolute 0.41(H) 0.00 - 0.03 K/mcL LAB HEMETOLOGY METHOD 07/13/2024 7:14 AM [facility] Blood Venous blood specimen / Unknown Venipuncture / Unknown 07/13/2024 6:38 AM EST 07/13/2024 6:51 AM EST us Kwesi Guido MD LAB BLOOD ORDERABLES F inal Result Performing Organization Address City/[facility]/ZIP Co de Phone Number [facility] [address] [place] [address], [place] [phone] * Phosphorus (07/13/2024 6:38 AM EST) Phosphorus 3.0 2.5 - 4.5 mg/dL LAB CHEMISTRY METHOD 07/13/2024 7:44 AM EST [facility] Blood Venous blood specimen / Unknown Venipuncture / Unknown 07/13/2024 6:38 AM EST 07/13/2024 6:50 AM EST us Kwesi Guido MD LAB BLOOD ORDERABLES F inal Result Performing Organization Address [facility] Co de Phone Number [facility] [address] [place] [address], [place] [phone] * Magnesium (07/13/2024 6:38 AM EST) Magnesium 1.9 1.9 - 2.6 mg/dL LAB CHEMISTRY METHOD 07/13/2024 7:44 AM EST [facility] Blood Venous blood specimen / Unknown Venipuncture / Unknown 07/13/2024 6:38 AM EST 07/13/2024 6:50 AM EST us Kwesi Guido MD LAB BLOOD ORDERABLES F inal Result Performing Organization Address City/[facility]/ZIP Co de Phone Number [facility] [address] [place] [address], [place] [phone] * (ABNORMAL) Basic metabolic panel (07/13/2024 6:38 AM EST) Sodium 132(L) 133 - 145 mmol/L LAB CHEMISTRY METHOD 07/13/2024 7:57 AM [facility] Potassium 3.6 3.5 - 5.5 mmol/L LAB CHEMISTRY METHOD 07/13/2024 7:57 AM [facility] Chloride 104 96 - 110 mmol/L LAB CHEMISTRY METHOD 07/13/2024 7:57 AM [facility] CO2 18(L) 21 - 32 mmol/L LAB CHEMISTRY METHOD 07/13/2024 7:57 AM [facility] Anion Gap 10 3 - 11 LAB CHEMISTRY METHOD 07/13/2024 7:57 AM [facility] Glucose 71 70 - 100 mg/dL LAB CHEMISTRY METHOD 07/13/2024 7:57 AM [facility] BUN 73(H) 5 - 25 mg/dL LAB CHEMISTRY METHOD 07/13/2024 7:57 AM [facility] Creatinine 5.13(H) 0.50 - 1.10 mg/dL LAB CHEMISTRY METHOD 07/13/2024 7:57 AM [facility] eGFR 8(L) >=60 mL/min/1. 73m2 LAB CHEMISTRY METHOD 07/13/2024 7:57 AM [facility] Comment:Calculation based on the??Chronic Kidney Disease Epidemiology Collaboration (CKD-EPI) equation refit??without adjustment for race. BUN/Creatinine Ratio 14.2 LAB CHEMISTRY METHOD 07/13/2024 7:57 AM [facility] Calcium 8.1(L) 8.5 - 10.5 mg/dL LAB CHEMISTRY METHOD 07/13/2024 7:57 AM [facility] Blood Venous blood specimen / Unknown Venipuncture / Unknown 07/13/2024 6:38 AM EST 07/13/2024 6:50 AM EST us Kwesi Guido MD LAB BLOOD ORDERABLES F inal Result [facility] [address] [place] [address], [place] [phone] * Uric acid (07/13/2024 6:38 AM EST) Uric Acid 7.5 3.1 - 7.8 mg/dL LAB CHEMISTRY METHOD 07/13/2024 7:44 AM EST [facility] Blood Venous blood specimen / Unknown Venipuncture / Unknown 07/13/2024 6:38 AM EST 07/13/2024 6:50 AM EST Chencho Wayne MD LAB BLOOD ORDERABLES Final Resu lt Performing Organization Address [facility]/ZIP Co de Phone Number [facility] [address] [place] [address], [place] [phone] * (ABNORMAL) Sedimentation rate (07/13/2024 6:38 AM EST) Pathologist [facility] Sed Rate 84(H) 0 - 30 mm/hr LAB HEMETOLOGY METHOD 07/13/2024 7:32 AM EST [facility] Blood Venous blood specimen / Unknown Venipuncture / Unknown 07/13/2024 6:38 AM EST 07/13/2024 6:51 AM EST us Kwesi Guido MD LAB BLOOD ORDERABLES F inal Result [facility] [address] [place] [address], [place] [phone] * (ABNORMAL) POCT Glucose, blood (07/12/2024 8:06 PM EST) Glucose POCT 125(H) 70 - 100 mg/dL 07/12/2024 8:08 PM EST [facility] Blood Capillary blood specimen / Unknown 07/12/2024 8:06 PM EST 07/12/2024 8:09 PM EST us Kwesi Guido MD LAB POINT OF C ARE TEST DOCKED DEVICE UNSOLICITED RESULTS Final Result Performing Organization Address City/[facility]/ZIP Co de Phone Number [facility] [address] [place] [address], [place] [phone] * (ABNORMAL) POCT Glucose, blood (07/12/2024 3:53 PM EST) Glucose POCT 143(H) 70 - 100 mg/dL 07/12/2024 3:57 PM [facility] Blood Capillary blood specimen / Unknown 07/12/2024 3:53 PM EST 07/12/2024 3:59 PM EST us Kwesi Guido MD LAB POINT OF C ARE TEST DOCKED DEVICE UNSOLICITED RESULTS Final Result Performing Organization Address City/[facility]/ZIP Co de Phone Number [facility] [address] [place] [address], [place] [phone] * (ABNORMAL) Protein and creatinine with ratio, urine (07/12/2024 3:27 PM EST) Protein, Urine 192 mg/dL LAB CHEMISTRY METHOD 07/12/2024 6:44 PM [facility] Prot/Creat, Ur 3.00(H) <=0.20 mg/mg creat LAB CHEMISTRY METHOD 07/12/2024 6:44 PM [facility] Creatinine, Urine 64.0 mg/dL LAB CHEMISTRY METHOD 07/12/2024 6:44 PM [facility] Urine Urine specimen obtained by clean catch procedure / Unknown Non-blood Collection / Unknown 07/12/2024 3:27 PM EST 07/12/2024 4:10 PM EST us Chencho Wayne MD LAB URINE ORDERABLES Final Resu lt Performing Organization Address [facility] Co de Phone Number [facility] [address] [place] [address], [place] [phone] * Creatinine, urine, random (07/12/2024 3:27 PM EST) Creatinine, Urine 64.0 mg/dL LAB CHEMISTRY METHOD 07/12/2024 4:41 PM EST [facility] Urine Urine specimen from urethra / Unknown Non-blood Collection / Unknown 07/12/2024 3:27 PM EST 07/12/2024 4:11 PM EST us Chencho Wayne MD LAB URINE ORDERABLES Final Resu lt Performing Organization Address [facility] Co de Phone Number [facility] [address] [place] [address], [place] [phone] * Sodium, urine, random (07/12/2024 3:27 PM EST) Sodium, Ur 34 mmol/L LAB CHEMISTRY METHOD 07/12/2024 6:44 PM EST [facility] Urine Urine specimen obtained by clean catch procedure / Unknown Non-blood Collection / Unknown 07/12/2024 3:27 PM EST 07/12/2024 4:10 PM EST Aye HEDRICK LAB URINE ORDERABLES Final Re sult Performing Organization Address [facility]/ZIP Co de Phone Number [facility] [address] [place] [address], [place] [phone] * Osmolality, urine (07/12/2024 3:27 PM EST) Osmolality, Urine 397 300 - 1,300 mOsm/kg LAB CHEMISTRY METHOD 07/12/2024 5:57 PM EST [facility] Urine Urine specimen obtained by clean catch procedure / Unknown Non-blood Collection / Unknown 07/12/2024 3:27 PM EST 07/12/2024 4:10 PM EST us Aye HEDRICK LAB URINE ORDERABLES Final Re sult [facility] [address] [place] [address], [place] [phone] * CT Chest wo Contrast (07/12/2024 12:48 PM EST) Anatomical Region Laterality Modality Body Computed Tomogra phy 07/12/2024 1:07 PM EST Impressions 07/12/2024 1:19 PM EST Impression: 1. No significant change in an irregular juxtapleural nodular opacity in the right lung apex. Malignancy is not excluded. 2. No developing lymphadenopathy. 3. Small bilateral pleural effusions, new. [place] [facility] ([id number]) -------- FINAL REPORT -------- Dictated By: Edilia Durbin Dictated Date: 07/12/2024 13:07 ET Assigned Physician: Edilia Durbin Reviewed and Electronically Signed By: Edilia Durbin Signed Date: 07/12/2024 13:19 ET Workstation ID: [id number] Transcribed By: Self Edit Transcribed Date: 07/12/2024 13:07 ET Narrative 07/12/2024 1:19 PM EST History: Abnormal chest radiograph. The patient underwent nondiagnostic CT- guided biopsy of the right apical lung nodule on 05/23/24. Comparison: Thoracic CT 06/17/24, 03/21/24 Technique: Helical volumetric imaging of the thorax was performed without IV contrast. DLP: 613.10 mGy/cm Simplesurance VCT Iterative reconstruction technique Findings: Respiratory motion [...] was performed withoutIV contrast. DLP: 613.10 mGy/cm Simplesurance VCT Iterative reconstruction technique Findings: Respiratory motion [...] Small bilateral pleural effusions, new. Telerad RYLEY ([id number]) -------- FINAL REPORT -------- Dictated By: Edilia Durbin Dictated Date: 07/12/2024 13:07 ET Assigned Physician: Edilia Durbin Reviewed and Electronically Signed By: Edilia Durbin Signed Date: 07/12/2024 13:19 ET Workstation ID: [id number] Transcribed By: Self Edit Transcribed Date: 07/12/2024 13:07 ET us Kwesi Guido MD IMG CT PROCEDURES [place] Result * (ABNORMAL) POCT Glucose, blood (07/12/2024 11:48 AM EST) Glucose POCT 176(H) 70 - 100 mg/dL 07/12/2024 11:49 AM EST [facility] Blood Capillary blood specimen / Unknown 07/12/2024 11:48 AM EST 07/12/2024 11:50 AM EST us Kwesi Guido MD LAB POINT OF C ARE TEST DOCKED DEVICE UNSOLICITED RESULTS Final Result [facility] [address] [place] [address], [place] [phone] * (ABNORMAL) POCT Glucose, blood (07/12/2024 8:07 AM EST) Glucose POCT 166(H) 70 - 100 mg/dL 07/12/2024 8:31 AM EST [facility] Blood Capillary blood specimen / Unknown 07/12/2024 8:07 AM EST 07/12/2024 8:32 AM EST us Kwesi Guido MD LAB POINT OF C ARE TEST DOCKED DEVICE UNSOLICITED RESULTS Final Result Performing Organization Address City/[facility]/ZIP Co de Phone Number [facility] [address] [place] [address], [place] [phone] * (ABNORMAL) Lipase (07/12/2024 6:19 AM EST) [facility] Lipase <10(L) 13 - 75 unit/L LAB CHEMISTRY METHOD 07/12/2024 3:26 PM EST [facility] Blood Venous blood specimen / Unknown Venipuncture / Unknown 07/12/2024 6:19 AM EST 07/12/2024 6:56 AM EST us Kwesi Guido MD LAB BLOOD ORDERABLES F inal Result Performing Organization Address City/[facility]/ZIP Co de Phone Number [facility] [address] [place] [address], [place] [phone] * (ABNORMAL) Hepatic function panel (07/12/2024 6:19 AM EST) [facility] Total Protein 4.9(L) 6.0 - 8.0 g/dL LAB CHEMISTRY METHOD 07/12/2024 3:26 PM EST [facility] Albumin 1.5(L) 3.2 - 5.0 g/dL LAB CHEMISTRY METHOD 07/12/2024 3:26 PM EST [facility] Total Bilirubin 0.5 0.0 - 1.4 mg/dL LAB CHEMISTRY METHOD 07/12/2024 3:26 PM [facility] Bilirubin, Direct 0.2 0.0 - 0.3 mg/dL LAB CHEMISTRY METHOD 07/12/2024 3:26 PM [facility] Bilirubin, Indirect 0.3 0.0 - 1.1 mg/dL LAB CHEMISTRY METHOD 07/12/2024 3:26 PM [facility] ALT (SGPT) 37 10 - 60 unit/L LAB CHEMISTRY METHOD 07/12/2024 3:26 PM EST [facility] AST (SGOT) 32 10 - 42 unit/L LAB CHEMISTRY METHOD 07/12/2024 3:26 PM EST [facility] Alkaline Phosphatase 157(H) 42 - 121 unit/L LAB CHEMISTRY METHOD 07/12/2024 3:26 PM EST [facility] Blood Venous blood specimen / Unknown Venipuncture / Unknown 07/12/2024 6:19 AM EST 07/12/2024 6:56 AM EST us Kwesi Guido MD LAB BLOOD ORDERABLES F inal Result [facility] [address] [place] [address], * (ABNORMAL) Procalcitonin (07/12/2024 6:19 AM EST) Procalcitonin 3.11(H) <=0.16 ng/mL LAB CHEMISTRY METHOD 07/12/2024 12:23 PM EST [facility] Blood Venous blood specimen / Unknown Venipuncture / Unknown 07/12/2024 6:19 AM EST 07/12/2024 6:56 AM EST Narrative [facility] - 07/12/2024 12:23 PM EST [...] ORDERABLES F inal Result Performing Organization Address [facility] Co de Phone Number [facility] [address] [place] [address], [place] [phone] * (ABNORMAL) C-reactive protein (07/12/2024 6:19 AM EST) [facility] C-Reactive Protein 16.60(H) <=0.50 mg/dL LAB CHEMISTRY METHOD 07/12/2024 10:35 AM EST [facility] Blood Venous blood specimen / Unknown Venipuncture / Unknown 07/12/2024 6:19 AM EST 07/12/2024 6:56 AM EST us Kwesi Guido MD LAB BLOOD ORDERABLES F inal Result Performing Organization Address [facility] de Phone Number [facility] [address] [place] [address], [place] [phone] * (ABNORMAL) CBC auto differential (07/12/2024 6:19 AM EST) Pathologist [facility] WBC 21.8(H) 4.8 - 10.8 K/mcL LAB HEMETOLOGY METHOD 07/12/2024 7:08 AM EST [facility] RBC 3.10(L) 3.80 - 4.80 M/mcL LAB HEMETOLOGY METHOD 07/12/2024 7:08 AM EST [facility] Hemoglobin 7.2(L) 11.5 - 16.0 g/dL LAB HEMETOLOGY METHOD 07/12/2024 7:08 AM [facility] Hematocrit 22.6(L) 35.0 - 47.0 % LAB HEMETOLOGY METHOD 07/12/2024 7:08 AM [facility] MCV 74.1(L) 79.0 - 98.0 FL LAB HEMETOLOGY METHOD 07/12/2024 7:08 AM [facility] MCH 23.6(L) 27.0 - 32.0 pcg LAB HEMETOLOGY METHOD 07/12/2024 7:08 AM [facility] MCHC 31.9(L) 32.0 - 37.0 g/dL LAB HEMETOLOGY METHOD 07/12/2024 7:08 AM [facility] RDW 21.0(H) 11.0 - 15.0 % LAB HEMETOLOGY METHOD 07/12/2024 7:08 AM [facility] Platelets 206 130 - 400 K/mcL LAB HEMETOLOGY METHOD 07/12/2024 7:08 AM [facility] MPV 9.6 7.0 - 11.0 FL LAB HEMETOLOGY METHOD 07/12/2024 7:08 AM [facility] NRBC 0.0 <1.0 % LAB HEMETOLOGY METHOD 07/12/2024 7:08 AM [facility] NRBC Absolute 0.00 <0.10 K/mcL LAB HEMETOLOGY METHOD 07/12/2024 7:08 AM [facility] Neutrophils Relative 86.5 % LAB HEMETOLOGY METHOD 07/12/2024 7:08 AM [facility] Lymphocytes Relative 2.7 % LAB HEMETOLOGY METHOD 07/12/2024 7:08 AM [facility] Monocytes Relative 5.8 % LAB HEMETOLOGY METHOD 07/12/2024 7:08 AM [facility] Eosinophils Relative 2.8 % LAB HEMETOLOGY METHOD 07/12/2024 7:08 AM [facility] Basophils Relative 0.2 % LAB HEMETOLOGY METHOD 07/12/2024 7:08 AM [facility] Immature Granulocytes Relative 2.0 % LAB HEMETOLOGY METHOD 07/12/2024 7:08 AM [facility] Neutrophils Absolute 18.89(H) 1.50 - 7.00 K/mcL LAB HEMETOLOGY METHOD 07/12/2024 7:08 AM [facility] Lymphocytes Absolute 0.59(L) 1.00 - 5.00 K/mcL LAB HEMETOLOGY METHOD 07/12/2024 7:08 AM [facility] Monocytes Absolute 1.27(H) 0.20 - 1.00 K/mcL LAB HEMETOLOGY METHOD 07/12/2024 7:08 AM [facility] Eosinophils Absolute 0.62(H) 0.00 - 0.50 K/mcL LAB HEMETOLOGY METHOD 07/12/2024 7:08 AM [facility] Basophils Absolute 0.04 0.00 - 0.20 K/mcL LAB HEMETOLOGY METHOD 07/12/2024 7:08 AM [facility] Immature Granulocytes Absolute 0.43(H) 0.00 - 0.03 K/mcL LAB HEMETOLOGY METHOD 07/12/2024 7:08 AM [facility] Blood Venous blood specimen / Unknown Venipuncture / Unknown 07/12/2024 6:19 AM EST 07/12/2024 6:58 AM EST us Kwesi Guido MD LAB BLOOD ORDERABLES F inal Result [facility] [address] [place] [address], * Phosphorus (07/12/2024 6:19 AM EST) Phosphorus 2.9 2.5 - 4.5 mg/dL LAB CHEMISTRY METHOD 07/12/2024 7:48 AM EST [facility] Blood Venous blood specimen / Unknown Venipuncture / Unknown 07/12/2024 6:19 AM EST 07/12/2024 6:56 AM EST us Kwesi Guido MD LAB BLOOD ORDERABLES F inal Result [facility] [address] [place] [address], [place] [phone] * (ABNORMAL) Magnesium (07/12/2024 6:19 AM EST) [facility] Magnesium 1.8(L) 1.9 - 2.6 mg/dL LAB CHEMISTRY METHOD 07/12/2024 7:48 AM EST [facility] Blood Venous blood specimen / Unknown Venipuncture / Unknown 07/12/2024 6:19 AM EST 07/12/2024 6:56 AM EST us Kwesi Guido MD LAB BLOOD ORDERABLES F inal Result [facility] [address] [place] [address], [place] [phone] * (ABNORMAL) Basic metabolic panel (07/12/2024 6:19 AM EST) Pathologist [facility] Sodium 132(L) 133 - 145 mmol/L LAB CHEMISTRY METHOD 07/12/2024 7:49 AM EST [facility] Potassium 3.7 3.5 - 5.5 mmol/L LAB CHEMISTRY METHOD 07/12/2024 7:49 AM EST [facility] Chloride 102 96 - 110 mmol/L LAB CHEMISTRY METHOD 07/12/2024 7:49 AM [facility] CO2 18(L) 21 - 32 mmol/L LAB CHEMISTRY METHOD 07/12/2024 7:49 AM [facility] Anion Gap 12(H) 3 - 11 LAB CHEMISTRY METHOD 07/12/2024 7:49 AM [facility] Glucose 132(H) 70 - 100 mg/dL LAB CHEMISTRY METHOD 07/12/2024 7:49 AM [facility] BUN 70(H) 5 - 25 mg/dL LAB CHEMISTRY METHOD 07/12/2024 7:49 AM [facility] Creatinine 4.64(H) 0.50 - 1.10 mg/dL LAB CHEMISTRY METHOD 07/12/2024 7:49 AM [facility] eGFR 9(L) >=60 mL/min/1. 73m2 LAB CHEMISTRY METHOD 07/12/2024 7:49 AM [facility] Comment:Calculation based on the??Chronic Kidney Disease Epidemiology Collaboration (CKD-EPI) equation refit??without adjustment for race. BUN/Creatinine Ratio 15.1 LAB CHEMISTRY METHOD 07/12/2024 7:49 AM [facility] Calcium 8.1(L) 8.5 - 10.5 mg/dL LAB CHEMISTRY METHOD 07/12/2024 7:49 AM [facility] Blood Venous blood specimen / Unknown Venipuncture / Unknown 07/12/2024 6:19 AM EST 07/12/2024 6:56 AM EST us Kwesi Guido MD LAB BLOOD ORDERABLES F inal Result [facility] [address] [place] [address], [place] [phone] * (ABNORMAL) POCT Glucose, blood (07/11/2024 8:03 PM EST) Glucose POCT 257(H) 70 - 100 mg/dL 07/11/2024 8:04 PM EST [facility] POCT Comment RN Notified 07/11/2024 8:04 PM EST [facility] Blood Capillary blood specimen / Unknown 07/11/2024 8:03 PM EST 07/11/2024 8:05 PM EST us Kwesi Guido MD LAB POINT OF ARE TEST DOCKED DEVICE UNSOLICITED RESULTS Final Result Performing Organization Address [facility]/ZIP Co de Phone Number [facility] [address] [place] [address], [place] [phone] * (ABNORMAL) POCT Glucose, blood (07/11/2024 3:51 PM EST) Glucose POCT 259(H) 70 - 100 mg/dL 07/11/2024 3:51 PM EST [facility] Blood Capillary blood specimen / Unknown 07/11/2024 3:51 PM EST 07/11/2024 3:52 PM EST us Kwesi Guido MD LAB POINT OF ARE TEST DOCKED DEVICE UNSOLICITED RESULTS Final Result Performing Organization Address City/[facility]/ZIP Co de Phone Number [facility] [address] [place] [address], [place] [phone] * (ABNORMAL) POCT Glucose, blood (07/11/2024 11:10 AM EST) Glucose POCT 301(H) 70 - 100 mg/dL 07/11/2024 11:11 AM EST [facility] Blood Capillary blood specimen / Unknown 07/11/2024 11:10 AM EST 07/11/2024 11:13 AM EST us Kwesi Guido MD LAB POINT OF ARE TEST DOCKED DEVICE UNSOLICITED RESULTS Final Result Performing Organization Address [facility]/ZIP Co de Phone Number [facility] [address] [place] [address], * (ABNORMAL) POCT Glucose, blood (07/11/2024 8:17 AM EST) Pathologist [facility] Glucose POCT 191(H) 70 - 100 mg/dL 07/11/2024 8:17 AM EST [facility] Blood Capillary blood specimen / Unknown 07/11/2024 8:17 AM EST 07/11/2024 8:19 AM EST Kwesi Guido MD LAB POINT [facility] ARE TEST DOCKED DEVICE UNSOLICITED RESULTS Final Result Performing Organization Address [facility] Co de Phone Number [facility] [address] [place] [address], * Pathologist Review Immunofixation (07/11/2024 6:21 AM EST) [facility] Pathologist Interpretation Reviewed by Rosenda Galeana MD 07/13/2024 4:13 PM EST [facility] Blood Venous blood specimen / Unknown Venipuncture / Unknown 07/11/2024 6:21 AM EST 07/11/2024 6:43 AM EST Chencho Wayne MD LAB BLOOD ORDERABLES Final Resu lt Performing Organization Address [facility]/ZIP Co de Phone Number [facility] [address] [place] [address], * (ABNORMAL) Hepatic function panel (07/11/2024 6:21 AM EST) [facility] Total Protein 5.1(L) 6.0 - 8.0 g/dL LAB CHEMISTRY METHOD 07/12/2024 3:26 PM EST [facility] Albumin 1.5(L) 3.2 - 5.0 g/dL LAB CHEMISTRY METHOD 07/12/2024 3:26 PM EST [facility] Total Bilirubin 0.6 0.0 - 1.4 mg/dL LAB CHEMISTRY METHOD 07/12/2024 3:26 PM [facility] Bilirubin, Direct 0.3 0.0 - 0.3 mg/dL LAB CHEMISTRY METHOD 07/12/2024 3:26 PM [facility] Bilirubin, Indirect 0.3 0.0 - 1.1 mg/dL LAB CHEMISTRY METHOD 07/12/2024 3:26 PM [facility] ALT (SGPT) 39 10 - 60 unit/L LAB CHEMISTRY METHOD 07/12/2024 3:26 PM [facility] AST (SGOT) 36 10 - 42 unit/L LAB CHEMISTRY METHOD 07/12/2024 3:26 PM [facility] Alkaline Phosphatase 168(H) 42 - 121 unit/L LAB CHEMISTRY METHOD 07/12/2024 3:26 PM [facility] Blood Venous blood specimen / Unknown Venipuncture / Unknown 07/11/2024 6:21 AM EST 07/11/2024 6:42 AM EST us Kwesi Guido MD LAB BLOOD ORDERABLES F inal Result [facility] [address] [place] [address], * Immunoglobulins IgG, IgA, IgM (07/11/2024 6:21 AM EST) Total IgG 1,090 549 - 1,584 mg/dL LAB CHEMISTRY METHOD 07/11/2024 7:29 AM EST [facility] IgA 172 61 - 348 mg/dL LAB CHEMISTRY METHOD 07/11/2024 7:29 AM EST [facility] IgM 38 23 - 259 mg/dL LAB CHEMISTRY METHOD 07/11/2024 7:29 AM EST [facility] Blood Venous blood specimen / Unknown Venipuncture / Unknown 07/11/2024 6:21 AM EST 07/11/2024 6:42 AM EST us Chencho Wayne MD LAB BLOOD ORDERABLES Final Resu lt Performing Organization Address City/[facility]/ZIP Co de Phone Number [facility] [address] [place] [address], [place] [phone] * Immunofixation electrophoresis serum (07/11/2024 6:21 AM EST) Pathologist [facility] Immunofixation Result, Serum Faint restriction of IgG [place], not observed on SPEP . Follow-up in 6 months if clinically indicated. LAB CHEMISTRY METHOD 07/13/2024 4:13 PM EST [facility] Blood Venous blood specimen / Unknown Venipuncture / Unknown 07/11/2024 6:21 AM EST 07/11/2024 6:43 AM EST us Chencho Wayne MD LAB BLOOD ORDERABLES Final Resu lt Performing Organization Address City/[facility]/ZIP Co de Phone Number [facility] [address] [place] [address], [place] [phone] * (ABNORMAL) CBC auto differential (07/11/2024 6:21 AM EST) WBC 18.4(H) 4.8 - 10.8 K/mcL LAB HEMETOLOGY METHOD 07/11/2024 6:52 AM EST [facility] RBC 3.20(L) 3.80 - 4.80 M/mcL LAB HEMETOLOGY METHOD 07/11/2024 6:52 AM EST [facility] Hemoglobin 7.4(L) 11.5 - 16.0 g/dL LAB HEMETOLOGY METHOD 07/11/2024 6:52 AM [facility] Hematocrit 23.7(L) 35.0 - 47.0 % LAB HEMETOLOGY METHOD 07/11/2024 6:52 AM [facility] MCV 75.0(L) 79.0 - 98.0 FL LAB HEMETOLOGY METHOD 07/11/2024 6:52 AM [facility] MCH 23.4(L) 27.0 - 32.0 pcg LAB HEMETOLOGY METHOD 07/11/2024 6:52 AM [facility] MCHC 31.2(L) 32.0 - 37.0 g/dL LAB HEMETOLOGY METHOD 07/11/2024 6:52 AM [facility] RDW 20.2(H) 11.0 - 15.0 % LAB HEMETOLOGY METHOD 07/11/2024 6:52 AM [facility] Platelets 211 130 - 400 K/mcL LAB HEMETOLOGY METHOD 07/11/2024 6:52 AM [facility] MPV 9.1 7.0 - 11.0 FL LAB HEMETOLOGY METHOD 07/11/2024 6:52 AM [facility] NRBC 0.0 <1.0 % LAB HEMETOLOGY METHOD 07/11/2024 6:52 AM [facility] NRBC Absolute 0.00 <0.10 K/mcL LAB HEMETOLOGY METHOD 07/11/2024 6:52 AM [facility] Neutrophils Relative 86.2 % LAB HEMETOLOGY METHOD 07/11/2024 6:52 AM [facility] Lymphocytes Relative 3.0 % LAB HEMETOLOGY METHOD 07/11/2024 6:52 AM [facility] Monocytes Relative 5.9 % LAB HEMETOLOGY METHOD 07/11/2024 6:52 AM [facility] Eosinophils Relative 3.3 % LAB HEMETOLOGY METHOD 07/11/2024 6:52 AM EST [facility] Basophils Relative 0.2 % LAB HEMETOLOGY METHOD 07/11/2024 6:52 AM [facility] Immature Granulocytes Relative 1.4 % LAB HEMETOLOGY METHOD 07/11/2024 6:52 AM [facility] Neutrophils Absolute 15.84(H) 1.50 - 7.00 K/mcL LAB HEMETOLOGY METHOD 07/11/2024 6:52 AM EST [facility] Lymphocytes Absolute 0.56(L) 1.00 - 5.00 K/mcL LAB HEMETOLOGY METHOD 07/11/2024 6:52 AM [facility] Monocytes Absolute 1.09(H) 0.20 - 1.00 K/mcL LAB HEMETOLOGY METHOD 07/11/2024 6:52 AM [facility] Eosinophils Absolute 0.61(H) 0.00 - 0.50 K/mcL LAB HEMETOLOGY METHOD 07/11/2024 6:52 AM EST [facility] Basophils Absolute 0.04 0.00 - 0.20 K/mcL LAB HEMETOLOGY METHOD 07/11/2024 6:52 AM [facility] Immature Granulocytes Absolute 0.26(H) 0.00 - 0.03 K/mcL LAB HEMETOLOGY METHOD 07/11/2024 6:52 AM [facility] Blood Venous blood specimen / Unknown Venipuncture / Unknown 07/11/2024 6:21 AM EST 07/11/2024 6:41 AM EST us Maria Alejandra Melendez MD LAB BLOOD ORDERABLES Final Res ult [facility] [address] [place] [address], * (ABNORMAL) Basic metabolic panel (07/11/2024 6:21 AM EST) Sodium 130(L) 133 - 145 mmol/L LAB CHEMISTRY METHOD 07/11/2024 7:27 AM [facility] Potassium 3.7 3.5 - 5.5 mmol/L LAB CHEMISTRY METHOD 07/11/2024 7:27 AM [facility] Chloride 102 96 - 110 mmol/L LAB CHEMISTRY METHOD 07/11/2024 7:27 AM [facility] CO2 19(L) 21 - 32 mmol/L LAB CHEMISTRY METHOD 07/11/2024 7:27 AM [facility] Anion Gap 9 3 - 11 LAB CHEMISTRY METHOD 07/11/2024 7:27 AM [facility] Glucose 174(H) 70 - 100 mg/dL LAB CHEMISTRY METHOD 07/11/2024 7:27 AM [facility] BUN 69(H) 5 - 25 mg/dL LAB CHEMISTRY METHOD 07/11/2024 7:27 AM [facility] Creatinine 4.36(H) 0.50 - 1.10 mg/dL LAB CHEMISTRY METHOD 07/11/2024 7:27 AM [facility] eGFR 10(L) >=60 mL/min/1. 73m2 LAB CHEMISTRY METHOD 07/11/2024 7:27 AM [facility] Comment:Calculation based on the??Chronic Kidney Disease Epidemiology Collaboration (CKD-EPI) equation refit??without adjustment for race. BUN/Creatinine Ratio 15.8 LAB CHEMISTRY METHOD 07/11/2024 7:27 AM [facility] Calcium 8.2(L) 8.5 - 10.5 mg/dL LAB CHEMISTRY METHOD 07/11/2024 7:27 AM [facility] Blood Venous blood specimen / Unknown Venipuncture / Unknown 07/11/2024 6:21 AM EST 07/11/2024 6:42 AM EST us Maria Alejandra Melendez MD LAB BLOOD ORDERABLES Final Res ult [facility] [address] [place] [address], [place] [phone] * (ABNORMAL) POCT Glucose, blood (07/10/2024 8:33 PM EST) Glucose POCT 325(H) 70 - 100 mg/dL 07/10/2024 8:34 PM EST [facility] Blood Capillary blood specimen / Unknown 07/10/2024 8:33 PM EST 07/10/2024 8:35 PM EST us Maria Alejandra Melendez MD LAB POINT OF CARE TE ST DOCKED DEVICE UNSOLICITED RESULTS Final Result Performing Organization Address City/[facility]/ZIP Co de Phone Number [facility] [address] [place] [address], [place] [phone] * (ABNORMAL) POCT Glucose, blood (07/10/2024 4:11 PM EST) Glucose POCT 287(H) 70 - 100 mg/dL 07/10/2024 4:12 PM EST [facility] Blood Capillary blood specimen / Unknown 07/10/2024 4:11 PM EST 07/10/2024 4:13 PM EST us Maria Alejandra Melendez MD LAB POINT OF CARE TE ST DOCKED DEVICE UNSOLICITED RESULTS Final Result [facility] [address] [place] [address], [place] [phone] * (ABNORMAL) POCT Glucose, blood (07/10/2024 11:29 AM EST) Glucose POCT 214(H) 70 - 100 mg/dL 07/10/2024 11:45 AM EST [facility] Blood Capillary blood specimen / Unknown 07/10/2024 11:29 AM EST 07/10/2024 11:47 AM EST Maria Alejandra Melendez MD LAB POINT OF CARE TE ST DOCKED DEVICE UNSOLICITED RESULTS Final Result Performing Organization Address [facility]/ZIP Co de Phone Number [facility] [address] [place] [address], [place] [phone] * (ABNORMAL) POCT Glucose, blood (07/10/2024 8:40 AM EST) Glucose POCT 164(H) 70 - 100 mg/dL 07/10/2024 8:42 AM EST [facility] Blood Capillary blood specimen / Unknown 07/10/2024 8:40 AM EST 07/10/2024 8:43 AM EST Maria Alejandra Melendez MD LAB POINT OF CARE TE ST DOCKED DEVICE UNSOLICITED RESULTS Final Result Performing Organization Address [facility] Co de Phone Number [facility] [address] [place] [address], [place] [phone] * (ABNORMAL) Triiodothyronine free (07/10/2024 5:16 AM EST) T3, Free 154(L) 230 - 420 pcg/dL LAB CHEMISTRY METHOD 07/10/2024 2:10 PM EST [facility] Blood Venous blood specimen / Unknown Venipuncture / Unknown 07/10/2024 5:16 AM EST 07/10/2024 6:42 AM EST Maria Alejandra Melendez MD LAB BLOOD ORDERABLES Final Res ult Performing Organization Address City/[facility]/ZIP Co de Phone Number [facility] [address] [place] [address], [place] [phone] * Thyroxine free (07/10/2024 5:16 AM EST) Free T4 0.92 0.70 - 1.80 ng/dL LAB CHEMISTRY METHOD 07/10/2024 2:04 PM EST [facility] Blood Venous blood specimen / Unknown Venipuncture / Unknown 07/10/2024 5:16 AM EST 07/10/2024 6:42 AM EST Maria Alejandra Melendez MD LAB BLOOD ORDERABLES Final Res ult [facility] [address] [place] [address], [place] [phone] * (ABNORMAL) Parathyroid hormone intact (07/10/2024 5:16 AM EST) PTH 10.5(L) 18.5 - 88.0 pcg/mL LAB CHEMISTRY METHOD 07/10/2024 1:47 PM EST [facility] Blood Venous blood specimen / Unknown Venipuncture / Unknown 07/10/2024 5:16 AM EST 07/10/2024 6:42 AM EST Maria Alejandra Melendez MD LAB BLOOD ORDERABLES Final Res ult [facility] [address] [place] [address], [place] [phone] * (ABNORMAL) CBC auto differential (07/10/2024 5:16 AM EST) WBC 16.9(H) 4.8 - 10.8 K/mcL LAB HEMETOLOGY METHOD 07/10/2024 7:29 AM EST [facility] RBC 3.30(L) 3.80 - 4.80 M/mcL LAB HEMETOLOGY METHOD 07/10/2024 7:29 AM EST [facility] Hemoglobin 7.6(L) 11.5 - 16.0 g/dL LAB HEMETOLOGY METHOD 07/10/2024 7:29 AM [facility] Hematocrit 24.4(L) 35.0 - 47.0 % LAB HEMETOLOGY METHOD 07/10/2024 7:29 AM [facility] MCV 74.4(L) 79.0 - 98.0 FL LAB HEMETOLOGY METHOD 07/10/2024 7:29 AM [facility] MCH 23.2(L) 27.0 - 32.0 pcg LAB HEMETOLOGY METHOD 07/10/2024 7:29 AM [facility] MCHC 31.1(L) 32.0 - 37.0 g/dL LAB HEMETOLOGY METHOD 07/10/2024 7:29 AM [facility] RDW 19.8(H) 11.0 - 15.0 % LAB HEMETOLOGY METHOD 07/10/2024 7:29 AM [facility] Platelets 277 130 - 400 K/mcL LAB HEMETOLOGY METHOD 07/10/2024 7:29 AM [facility] MPV 9.1 7.0 - 11.0 FL LAB HEMETOLOGY METHOD 07/10/2024 7:29 AM [facility] NRBC 0.0 <1.0 % LAB HEMETOLOGY METHOD 07/10/2024 7:29 AM [facility] NRBC Absolute 0.00 <0.10 K/mcL LAB HEMETOLOGY METHOD 07/10/2024 7:29 AM [facility] Neutrophils Relative 86.9 % LAB HEMETOLOGY METHOD 07/10/2024 7:29 AM [facility] Lymphocytes Relative 3.2 % LAB HEMETOLOGY METHOD 07/10/2024 7:29 AM [facility] Monocytes Relative 5.9 % LAB HEMETOLOGY METHOD 07/10/2024 7:29 AM [facility] Eosinophils Relative 2.8 % LAB HEMETOLOGY METHOD 07/10/2024 7:29 AM [facility] Basophils Relative 0.2 % LAB HEMETOLOGY METHOD 07/10/2024 7:29 AM [facility] Immature Granulocytes Relative 1.0 % LAB HEMETOLOGY METHOD 07/10/2024 7:29 AM [facility] Neutrophils Absolute 14.72(H) 1.50 - 7.00 K/mcL LAB HEMETOLOGY METHOD 07/10/2024 7:29 AM [facility] Lymphocytes Absolute 0.54(L) 1.00 - 5.00 K/mcL LAB HEMETOLOGY METHOD 07/10/2024 7:29 AM [facility] Monocytes Absolute 1.00 0.20 - 1.00 K/mcL LAB HEMETOLOGY METHOD 07/10/2024 7:29 AM EST [facility] Eosinophils Absolute 0.47 0.00 - 0.50 K/mcL LAB HEMETOLOGY METHOD 07/10/2024 7:29 AM [facility] Basophils Absolute 0.04 0.00 - 0.20 K/mcL LAB HEMETOLOGY METHOD 07/10/2024 7:29 AM [facility] Immature Granulocytes Absolute 0.17(H) 0.00 - 0.03 K/mcL LAB HEMETOLOGY METHOD 07/10/2024 7:29 AM [facility] Blood Venous blood specimen / Unknown Venipuncture / Unknown 07/10/2024 5:16 AM EST 07/10/2024 6:43 AM EST us Maria Alejandra Melendez MD LAB BLOOD ORDERABLES Final Res ult [facility] [address] [place] [address], [place] [phone] * (ABNORMAL) Magnesium (07/10/2024 5:16 AM EST) Pathologist [facility] Magnesium 1.8(L) 1.9 - 2.6 mg/dL LAB CHEMISTRY METHOD 07/10/2024 7:38 AM [facility] Blood Venous blood specimen / Unknown Venipuncture / Unknown 07/10/2024 5:16 AM EST 07/10/2024 6:42 AM EST us Maria Alejandra Melendez MD LAB BLOOD ORDERABLES Final Res ult [facility] [address] [place] [address], * (ABNORMAL) Basic metabolic panel (07/10/2024 5:16 AM EST) Pathologist [facility] Sodium 133 133 - 145 mmol/L LAB CHEMISTRY METHOD 07/10/2024 7:39 AM [facility] Potassium 3.8 3.5 - 5.5 mmol/L LAB CHEMISTRY METHOD 07/10/2024 7:39 AM [facility] Chloride 105 96 - 110 mmol/L LAB CHEMISTRY METHOD 07/10/2024 7:39 AM [facility] CO2 20(L) 21 - 32 mmol/L LAB CHEMISTRY METHOD 07/10/2024 7:39 AM [facility] Anion Gap 8 3 - 11 LAB CHEMISTRY METHOD 07/10/2024 7:39 AM [facility] Glucose 167(H) 70 - 100 mg/dL LAB CHEMISTRY METHOD 07/10/2024 7:39 AM [facility] BUN 65(H) 5 - 25 mg/dL LAB CHEMISTRY METHOD 07/10/2024 7:39 AM [facility] Creatinine 4.19(H) 0.50 - 1.10 mg/dL LAB CHEMISTRY METHOD 07/10/2024 7:39 AM EST [facility] eGFR 10(L) >=60 mL/min/1. 73m2 LAB CHEMISTRY METHOD 07/10/2024 7:39 AM [facility] Comment:Calculation based on the??Chronic Kidney Disease Epidemiology Collaboration (CKD-EPI) equation refit??without adjustment for race. BUN/Creatinine Ratio 15.5 LAB CHEMISTRY METHOD 07/10/2024 7:39 AM [facility] Calcium 8.5 8.5 - 10.5 mg/dL LAB CHEMISTRY METHOD 07/10/2024 7:39 AM [facility] Blood Venous blood specimen / Unknown Venipuncture / Unknown 07/10/2024 5:16 AM EST 07/10/2024 6:42 AM EST us Maria Alejandra Melendez MD LAB BLOOD ORDERABLES Final Res ult Performing Organization Address City/[facility]/ZIP Co de Phone Number [facility] [address] [place] [address], [place] [phone] * (ABNORMAL) POCT Glucose, blood (07/09/2024 7:52 PM EST) Glucose POCT 243(H) 70 - 100 mg/dL 07/09/2024 7:53 PM EST [facility] Blood Capillary blood specimen / Unknown 07/09/2024 7:52 PM EST 07/09/2024 7:54 PM EST Maria Alejandra Melendez MD LAB POINT OF CARE TE ST DOCKED DEVICE UNSOLICITED RESULTS Final Result Performing Organization Address City/[facility]/ZIP Co de Phone Number [facility] [address] [place] [address], [place] [phone] * (ABNORMAL) POCT Glucose, blood (07/09/2024 4:27 PM EST) Glucose POCT 264(H) 70 - 100 mg/dL 07/09/2024 4:28 PM EST [facility] Blood Capillary blood specimen / Unknown 07/09/2024 4:27 PM EST 07/09/2024 4:29 PM EST us Maria Alejandra Melendez MD LAB POINT OF CARE TE ST DOCKED DEVICE UNSOLICITED RESULTS Final Result Performing Organization Address City/[facility]/ZIP Co de Phone Number [facility] [address] [place] [address], [place] [phone] * (ABNORMAL) POCT Glucose, blood (07/09/2024 11:33 AM EST) Glucose POCT 179(H) 70 - 100 mg/dL 07/09/2024 11:34 AM EST [facility] Blood Capillary blood specimen / Unknown 07/09/2024 11:33 AM EST 07/09/2024 11:35 AM EST us Maria Alejandra Melendez MD LAB POINT OF CARE TE ST DOCKED DEVICE UNSOLICITED RESULTS Final Result Performing Organization Address [facility] Co de Phone Number [facility] [address] [place] [address], [place] [phone] * (ABNORMAL) POCT Glucose, blood (07/09/2024 8:59 AM EST) Glucose POCT 175(H) 70 - 100 mg/dL 07/09/2024 9:06 AM EST [facility] Blood Capillary blood specimen / Unknown 07/09/2024 8:59 AM EST 07/09/2024 9:08 AM EST us Maria Alejandra Melendez MD LAB POINT OF CARE TE ST DOCKED DEVICE UNSOLICITED RESULTS Final Result Performing Organization Address City/[facility]/ZIP Co de Phone Number [facility] [address] [place] [address], * (ABNORMAL) CBC auto differential (07/09/2024 6:25 AM EST) [facility] Signature WBC 18.4(H) 4.8 - 10.8 K/mcL LAB HEMETOLOGY METHOD 07/09/2024 8:05 AM [facility] RBC 3.50(L) 3.80 - 4.80 M/mcL LAB HEMETOLOGY METHOD 07/09/2024 8:05 AM [facility] Hemoglobin 8.3(L) 11.5 - 16.0 g/dL LAB HEMETOLOGY METHOD 07/09/2024 8:05 AM [facility] Hematocrit 26.1(L) 35.0 - 47.0 % LAB HEMETOLOGY METHOD 07/09/2024 8:05 AM [facility] MCV 74.4(L) 79.0 - 98.0 FL LAB HEMETOLOGY METHOD 07/09/2024 8:05 AM [facility] MCH 23.6(L) 27.0 - 32.0 pcg LAB HEMETOLOGY METHOD 07/09/2024 8:05 AM [facility] MCHC 31.8(L) 32.0 - 37.0 g/dL LAB HEMETOLOGY METHOD 07/09/2024 8:05 AM [facility] RDW 19.2(H) 11.0 - 15.0 % LAB HEMETOLOGY METHOD 07/09/2024 8:05 AM [facility] Platelets 333 130 - 400 K/mcL LAB HEMETOLOGY METHOD 07/09/2024 8:05 AM [facility] MPV 9.1 7.0 - 11.0 FL LAB HEMETOLOGY METHOD 07/09/2024 8:05 AM [facility] NRBC 0.0 <1.0 % LAB HEMETOLOGY METHOD 07/09/2024 8:05 AM [facility] NRBC Absolute 0.00 <0.10 K/mcL LAB HEMETOLOGY METHOD 07/09/2024 8:05 AM [facility] Neutrophils Relative 89.0 % LAB HEMETOLOGY METHOD 07/09/2024 8:05 AM [facility] Lymphocytes Relative 2.8 % LAB HEMETOLOGY METHOD 07/09/2024 8:05 AM [facility] Monocytes Relative 6.1 % LAB HEMETOLOGY METHOD 07/09/2024 8:05 AM [facility] Eosinophils Relative 1.1 % LAB HEMETOLOGY METHOD 07/09/2024 8:05 AM [facility] Basophils Relative 0.2 % LAB HEMETOLOGY METHOD 07/09/2024 8:05 AM [facility] Immature Granulocytes Relative 0.8 % LAB HEMETOLOGY METHOD 07/09/2024 8:05 AM [facility] Neutrophils Absolute 16.38(H) 1.50 - 7.00 K/mcL LAB HEMETOLOGY METHOD 07/09/2024 8:05 AM [facility] Lymphocytes Absolute 0.52(L) 1.00 - 5.00 K/mcL LAB HEMETOLOGY METHOD 07/09/2024 8:05 AM [facility] Monocytes Absolute 1.13(H) 0.20 - 1.00 K/mcL LAB HEMETOLOGY METHOD 07/09/2024 8:05 AM [facility] Eosinophils Absolute 0.21 0.00 - 0.50 K/mcL LAB HEMETOLOGY METHOD 07/09/2024 8:05 AM [facility] Basophils Absolute 0.03 0.00 - 0.20 K/mcL LAB HEMETOLOGY METHOD 07/09/2024 8:05 AM [facility] Immature Granulocytes Absolute 0.14(H) 0.00 - 0.03 K/mcL LAB HEMETOLOGY METHOD 07/09/2024 8:05 AM EST [facility] Blood Venous blood specimen / Unknown Venipuncture / Unknown 07/09/2024 6:25 AM EST 07/09/2024 7:11 AM EST us Aye HEDRICK LAB BLOOD ORDERABLES Final Re sult Performing Organization Address [facility]/ZIP Co de Phone Number [facility] [address] [place] [address], [place] [phone] * Creatine kinase (07/09/2024 6:25 AM EST) [facility] Total CK 172 22 - 269 unit/L LAB CHEMISTRY METHOD 07/09/2024 8:11 AM EST [facility] Blood Venous blood specimen / Unknown Venipuncture / Unknown 07/09/2024 6:25 AM EST 07/09/2024 7:11 AM EST Aye HEDRICK LAB BLOOD ORDERABLES Final Re sult Performing Organization Address [facility] de Phone Number [facility] [address] [place] [address], [place] [phone] * (ABNORMAL) Calcium, ionized (07/09/2024 6:25 AM EST) Pathologist [facility] Calcium Ionized 5.66(H) 4.50 - 5.30 mg/dL 07/09/2024 7:23 AM EST [facility] Blood Venous blood specimen / Unknown Venipuncture / Unknown 07/09/2024 6:25 AM EST 07/09/2024 7:11 AM EST Aye HEDRICK LAB BLOOD ORDERABLES Final Re sult Performing Organization Address City/[facility]/ZIP Co de Phone Number [facility] [address] [place] [address], [place] [phone] * Magnesium (07/09/2024 6:25 AM EST) Pathologist [facility] Magnesium 2.0 1.9 - 2.6 mg/dL LAB CHEMISTRY METHOD 07/09/2024 8:11 AM EST [facility] Blood Venous blood specimen / Unknown Venipuncture / Unknown 07/09/2024 6:25 AM EST 07/09/2024 7:11 AM EST us Aye HEDRICK LAB BLOOD ORDERABLES Final Re sult [facility] [address] [place] [address], [place] [phone] * (ABNORMAL) Basic metabolic panel (07/09/2024 6:25 AM EST) Pathologist [facility] Sodium 131(L) 133 - 145 mmol/L LAB CHEMISTRY METHOD 07/09/2024 8:12 AM [facility] Potassium 3.8 3.5 - 5.5 mmol/L LAB CHEMISTRY METHOD 07/09/2024 8:12 AM [facility] Chloride 101 96 - 110 mmol/L LAB CHEMISTRY METHOD 07/09/2024 8:12 AM [facility] CO2 21 21 - 32 mmol/L LAB CHEMISTRY METHOD 07/09/2024 8:12 AM [facility] Anion Gap 9 3 - 11 LAB CHEMISTRY METHOD 07/09/2024 8:12 AM [facility] Glucose 170(H) 70 - 100 mg/dL LAB CHEMISTRY METHOD 07/09/2024 8:12 AM [facility] BUN 63(H) 5 - 25 mg/dL LAB CHEMISTRY METHOD 07/09/2024 8:12 AM [facility] Creatinine 4.07(H) 0.50 - 1.10 mg/dL LAB CHEMISTRY METHOD 07/09/2024 8:12 AM EST [facility] eGFR 11(L) >=60 mL/min/1. 73m2 LAB CHEMISTRY METHOD 07/09/2024 8:12 AM EST [facility] Comment:Calculation based on the??Chronic Kidney Disease Epidemiology Collaboration (CKD-EPI) equation refit??without adjustment for race. BUN/Creatinine Ratio 15.5 LAB CHEMISTRY METHOD 07/09/2024 8:12 AM EST [facility] Calcium 9.5 8.5 - 10.5 mg/dL LAB CHEMISTRY METHOD 07/09/2024 8:12 AM EST [facility] Blood Venous blood specimen / Unknown Venipuncture / Unknown 07/09/2024 6:25 AM EST 07/09/2024 7:11 AM EST us Aye HEDRICK LAB BLOOD ORDERABLES Final Re sult [facility] [address] [place] [address], [place] [phone] * XR Chest 1 View (07/08/2024 10:00 [...] Signed Date: 07/09/2024 09:03 ET Workstation ID: [id number] Transcribed By: Self Edit Transcribed Date: 07/09/2024 [...] Signed Date: 07/09/2024 09:03 ET Workstation ID: [id number] Transcribed By: Self Edit Transcribed Date: 07/09/2024 09:02 ET Aye HEDRICK IMG XR PROCEDURES Final Resul t * Green LI heparin tube (07/08/2024 9:50 PM EST) Extra Tube Hold for add-ons. 07/09/2024 12:01 AM EST [facility] Comment:Auto resulted. Blood Venous blood specimen / Unknown 07/08/2024 9:50 PM EST 07/08/2024 10:41 PM EST Wayne Donahue MD LAB BLOOD ORDERABLES Final Re sult [facility] [address] [place] [address], [place] [phone] * Culture blood (07/08/2024 9:49 PM EST) Culture, Blood No growth at 5 days 07/13/2024 10:01 PM EST [facility] Blood Venous blood specimen / Unknown Venipuncture / Unknown 07/08/2024 9:49 PM EST 07/08/2024 9:54 PM EST Aye HEDRICK LAB MICROBIOLOGY - GENERAL OR DERABLES Final Result Performing Organization Address [facility]/ZIP Co de Phone Number [facility] [address] [place] [address], * Lactate (07/08/2024 9:42 PM EST) Lactate 1.3 mmol/L 07/08/2024 10:30 PM EST [facility] Blood Venous blood specimen / Unknown Venipuncture / Unknown 07/08/2024 9:42 PM EST 07/08/2024 9:54 PM EST us Aye HEDRICK LAB BLOOD ORDERABLES Final Re sult Performing Organization Address [facility] Co de Phone Number [facility] [address] [place] [address], [place] [phone] * Culture blood (07/08/2024 9:37 PM EST) [facility] Culture, Blood No growth at 5 days 07/13/2024 10:01 PM EST [facility] Blood Venous blood specimen / Unknown Venipuncture / Unknown 07/08/2024 9:37 PM EST 07/08/2024 9:56 PM EST us Aye HEDRICK LAB MICROBIOLOGY - GENERAL OR DERABLES Final Result Performing Organization Address [facility]/ZIP Co de Phone Number [facility] [address] [place] [address], [place] [phone] * (ABNORMAL) POCT Glucose, blood (07/08/2024 8:46 PM EST) [facility] Signature Glucose POCT 264(H) 70 - 100 mg/dL 07/08/2024 8:46 PM EST [facility] Blood Capillary blood specimen / Unknown 07/08/2024 8:46 PM EST 07/08/2024 8:47 PM EST us Wayne Donahue MD LAB POINT OF CARE TE ST DOCKED DEVICE UNSOLICITED RESULTS Final Result [facility] [address] [place] [address], [place] [phone] * (ABNORMAL) Basic metabolic panel (07/08/2024 8:30 PM EST) Sodium 130(L) 133 - 145 mmol/L LAB CHEMISTRY METHOD 07/08/2024 11:37 PM EST [facility] Potassium 4.0 3.5 - 5.5 mmol/L LAB CHEMISTRY METHOD 07/08/2024 11:37 PM [facility] Chloride 98 96 - 110 mmol/L LAB CHEMISTRY METHOD 07/08/2024 11:37 PM [facility] CO2 22 21 - 32 mmol/L LAB CHEMISTRY METHOD 07/08/2024 11:37 PM [facility] Anion Gap 10 3 - 11 LAB CHEMISTRY METHOD 07/08/2024 11:37 PM [facility] Glucose 261(H) 70 - 100 mg/dL LAB CHEMISTRY METHOD 07/08/2024 11:37 PM [facility] BUN 64(H) 5 - 25 mg/dL LAB CHEMISTRY METHOD 07/08/2024 11:37 PM [facility] Creatinine 4.32(H) 0.50 - 1.10 mg/dL LAB CHEMISTRY METHOD 07/08/2024 11:37 PM [facility] eGFR 10(L) >=60 mL/min/1. 73m2 LAB CHEMISTRY METHOD 07/08/2024 11:37 PM [facility] Comment:Calculation based on the??Chronic Kidney Disease Epidemiology Collaboration (CKD-EPI) equation refit??without adjustment for race. BUN/Creatinine Ratio 14.8 LAB CHEMISTRY METHOD 07/08/2024 11:37 PM [facility] Calcium 10.3 8.5 - 10.5 mg/dL LAB CHEMISTRY METHOD 07/08/2024 11:37 PM EST [facility] Blood Venous blood specimen / Unknown Venipuncture / Unknown 07/08/2024 8:30 PM EST 07/08/2024 8:37 PM EST us Aye HEDRICK LAB BLOOD ORDERABLES Final Re sult [facility] [address] [place] [address], [place] [phone] * (ABNORMAL) Complete blood count (07/08/2024 8:30 PM EST) WBC 20.5(H) 4.8 - 10.8 K/mcL LAB HEMETOLOGY METHOD 07/08/2024 8:56 PM [facility] RBC 4.00 3.80 - 4.80 M/mcL LAB HEMETOLOGY METHOD 07/08/2024 8:56 PM [facility] Hemoglobin 9.2(L) 11.5 - 16.0 g/dL LAB HEMETOLOGY METHOD 07/08/2024 8:56 PM [facility] Hematocrit 30.0(L) 35.0 - 47.0 % LAB HEMETOLOGY METHOD 07/08/2024 8:56 PM [facility] MCV 75.8(L) 79.0 - 98.0 FL LAB HEMETOLOGY METHOD 07/08/2024 8:56 PM [facility] MCH 23.2(L) 27.0 - 32.0 pcg LAB HEMETOLOGY METHOD 07/08/2024 8:56 PM [facility] MCHC 30.7(L) 32.0 - 37.0 g/dL LAB HEMETOLOGY METHOD 07/08/2024 8:56 PM [facility] RDW 19.9(H) 11.0 - 15.0 % LAB HEMETOLOGY METHOD 07/08/2024 8:56 PM [facility] Platelets 332 130 - 400 K/mcL LAB HEMETOLOGY METHOD 07/08/2024 8:56 PM [facility] MPV 8.6 7.0 - 11.0 FL LAB HEMETOLOGY METHOD 07/08/2024 8:56 PM EST [facility] NRBC 0.0 <1.0 % LAB HEMETOLOGY METHOD 07/08/2024 8:56 PM [facility] NRBC Absolute 0.00 <0.10 K/mcL LAB HEMETOLOGY METHOD 07/08/2024 8:56 PM [facility] Blood Venous blood specimen / Unknown Venipuncture / Unknown 07/08/2024 8:30 PM EST 07/08/2024 8:37 PM EST us Aye HEDRICK LAB BLOOD ORDERABLES Final Re sult [facility] [address] [place] [address], * (ABNORMAL) Electrolyte panel (07/08/2024 8:30 PM EST) Sodium 130(L) 133 - 145 mmol/L LAB CHEMISTRY METHOD 07/08/2024 11:37 PM [facility] Potassium 4.0 3.5 - 5.5 mmol/L LAB CHEMISTRY METHOD 07/08/2024 11:37 PM [facility] Chloride 98 96 - 110 mmol/L LAB CHEMISTRY METHOD 07/08/2024 11:37 PM [facility] CO2 22 21 - 32 mmol/L LAB CHEMISTRY METHOD 07/08/2024 11:37 PM [facility] Anion Gap 10 3 - 11 LAB CHEMISTRY METHOD 07/08/2024 11:37 PM EST [facility] Blood Venous blood specimen / Unknown Venipuncture / Unknown 07/08/2024 8:30 PM EST 07/08/2024 8:37 PM EST Aye HEDRICK LAB BLOOD ORDERABLES Final Re sult [facility] [address] [place] [address], [place] [phone] * Transfuse RBC (07/08/2024 6:45 PM EST) Raya HEDRICK BLOOD TRANSFUSION ORDE RABLES Final Result * Transfuse RBC: 1 Units (07/08/2024 6:45 PM EST) Raya HEDRICK BLOOD TRANSFUSION ORDE RABLES Final Result * (ABNORMAL) POCT Glucose, blood (07/08/2024 6:19 PM EST) Glucose POCT 276(H) 70 - 100 mg/dL 07/08/2024 6:19 PM EST [facility] Blood Capillary blood specimen / Unknown 07/08/2024 6:19 PM EST 07/08/2024 6:20 PM EST Wayne Donahue MD LAB POINT OF CARE TE ST DOCKED DEVICE UNSOLICITED RESULTS Final Result [facility] [address] [place] [address], [place] [phone] * PATHOLOGIST REVIEW PROTEIN ELECTROPHORESIS (07/08/2024 5:52 PM EST) Pathologist [facility] Pathologist Interpretation Reviewed by Rosenda Galeana MD 07/14/2024 9:21 AM EST [facility] Blood Venous blood specimen / Unknown Venipuncture / Unknown 07/08/2024 5:52 PM EST 07/08/2024 6:00 PM EST Aye HEDRICK LAB BLOOD ORDERABLES Final Re sult [facility] [address] [place] [address], [place] [phone] * Protein, total (07/08/2024 5:52 PM EST) [facility] Total Protein 6.4 6.0 - 8.0 g/dL LAB CHEMISTRY METHOD 07/08/2024 6:30 PM EST [facility] Blood Venous blood specimen / Unknown Venipuncture / Unknown 07/08/2024 5:52 PM EST 07/08/2024 6:00 PM EST Aye HEDRICK LAB BLOOD ORDERABLES Final Re sult Performing Organization Address City/[facility]/ZIP Co de Phone Number [facility] [address] [place] [address], [place] [phone] * (ABNORMAL) Basic metabolic panel (07/08/2024 5:52 PM EST) [facility] Sodium 128(L) 133 - 145 mmol/L LAB CHEMISTRY METHOD 07/08/2024 6:50 PM [facility] Potassium 4.0 3.5 - 5.5 mmol/L LAB CHEMISTRY METHOD 07/08/2024 6:50 PM [facility] Chloride 96 96 - 110 mmol/L LAB CHEMISTRY METHOD 07/08/2024 6:50 PM [facility] CO2 25 21 - 32 mmol/L LAB CHEMISTRY METHOD 07/08/2024 6:50 PM [facility] Anion Gap 7 3 - 11 LAB CHEMISTRY METHOD 07/08/2024 6:50 PM [facility] Glucose 259(H) 70 - 100 mg/dL LAB CHEMISTRY METHOD 07/08/2024 6:50 PM EST [facility] BUN 67(H) 5 - 25 mg/dL LAB CHEMISTRY METHOD 07/08/2024 6:50 PM EST [facility] Creatinine 4.12(H) 0.50 - 1.10 mg/dL LAB CHEMISTRY METHOD 07/08/2024 6:50 PM [facility] eGFR 10(L) >=60 mL/min/1. 73m2 LAB CHEMISTRY METHOD 07/08/2024 6:50 PM EST [facility] Comment:Calculation based on the??Chronic Kidney Disease Epidemiology Collaboration (CKD-EPI) equation refit??without adjustment for race. BUN/Creatinine Ratio 16.3 LAB CHEMISTRY METHOD 07/08/2024 6:50 PM [facility] Calcium 10.8(H) 8.5 - 10.5 mg/dL LAB CHEMISTRY METHOD 07/08/2024 6:50 PM EST [facility] Blood Venous blood specimen / Unknown Venipuncture / Unknown 07/08/2024 5:52 PM EST 07/08/2024 6:00 PM EST [facility] BLOOD ORDERABLES Final Re sult [facility] [address] [place] [address], * (ABNORMAL) Serum albumin (07/08/2024 5:52 PM EST) Albumin 2.1(L) 3.2 - 5.0 g/dL LAB CHEMISTRY METHOD 07/08/2024 6:34 PM EST [facility] Blood Venous blood specimen / Unknown Venipuncture / Unknown 07/08/2024 5:52 PM EST 07/08/2024 6:00 PM EST Aye HEDRICK LAB BLOOD ORDERABLES Final Re sult [facility] [address] [place] [address], [place] [phone] * (ABNORMAL) Electrolyte panel (07/08/2024 5:52 PM EST) Sodium 128(L) 133 - 145 mmol/L LAB CHEMISTRY METHOD 07/08/2024 6:34 PM EST [facility] Potassium 4.0 3.5 - 5.5 mmol/L LAB CHEMISTRY METHOD 07/08/2024 6:34 PM EST [facility] Chloride 96 96 - 110 mmol/L LAB CHEMISTRY METHOD 07/08/2024 6:34 PM [facility] CO2 25 21 - 32 mmol/L LAB CHEMISTRY METHOD 07/08/2024 6:34 PM [facility] Anion Gap 7 3 - 11 LAB CHEMISTRY METHOD 07/08/2024 6:34 PM [facility] Blood Venous blood specimen / Unknown Venipuncture / Unknown 07/08/2024 5:52 PM EST 07/08/2024 6:00 PM EST Aye HEDRICK LAB BLOOD ORDERABLES Final Re sult Performing Organization Address [facility]/ZIP Co de Phone Number [facility] [address] [place] [address], [place] [phone] * (ABNORMAL) Protein electrophoresis, serum (07/08/2024 5:52 PM EST) Total Protein 6.4 6.0 - 8.0 g/dL LAB CHEMISTRY METHOD 07/14/2024 9:21 AM EST [facility] Albumin, Serum 2.2(L) 2.9 - 4.1 g/dL LAB CHEMISTRY METHOD 07/14/2024 9:21 AM [facility] Alpha 1 Globulin (g/dL) 0.6(H) 0.1 - 0.5 g/dL LAB CHEMISTRY METHOD 07/14/2024 9:21 AM EST [facility] Alpha 2 Globulin (g/dL) 1.2 0.7 - 1.5 g/dL LAB CHEMISTRY METHOD 07/14/2024 9:21 AM [facility] Beta (g/dL) 1.0 0.7 - 1.5 g/dL LAB CHEMISTRY METHOD 07/14/2024 9:21 AM [facility] Gamma Globulin (g/dL) 1.5 0.7 - 1.9 g/dL LAB CHEMISTRY METHOD 07/14/2024 9:21 AM [facility] SPEP Interpretation Hypoalbuminem ia, suggestive of malnutrition, decreased hepatic synthesis or renal/GI loss Elevated alpha-1 fraction, suggestive of acute or or chronic inflammation. LAB CHEMISTRY METHOD 07/14/2024 9:21 AM EST [facility] Blood Venous blood specimen / Unknown Venipuncture / Unknown 07/08/2024 5:52 PM EST 07/08/2024 6:00 PM EST us Aye HEDRICK LAB BLOOD ORDERABLES Final Re sult [facility] [address] [place] [address], [place] [phone] * US Retroperitoneal Complete (07/08/2024 4:30 PM EST) Anatomical Region Laterality Modality Body Ultrasound 07/10/2024 2:07 PM EST Impressions 07/10/2024 2:08 PM EST Normal appearance of the kidneys. -------- FINAL REPORT -------- Dictated By: Primo Dee Dictated Date: 07/10/2024 14:07 ET Assigned Physician: Primo Dee Reviewed and Electronically Signed By: Primo Dee Signed Date: 07/10/2024 14:08 ET Workstation ID: [id number] Transcribed By: Self Edit Transcribed Date: 07/10/2024 [...] Signed Date: 07/10/2024 14:08 ET Workstation ID: [id number] Transcribed By: Self Edit Transcribed Date: 07/10/2024 14:07 ET us Aye HEDRICK [facility] US PROCEDURES Final Resul t * Respiratory virus panel molecular study (07/08/2024 2:59 PM EST) Adenovirus Detection by PCR Not Detected Not Detected LAB MICROBIOLOGY METHOD 07/08/2024 4:18 PM EST [facility] Influenza A PCR Not Detected Not Detected LAB MICROBIOLOGY METHOD 07/08/2024 4:18 PM EST [facility] Influenza B PCR Not Detected Not Detected LAB MICROBIOLOGY METHOD 07/08/2024 4:18 PM EST [facility] Coronavirus 229E Not Detected Not Detected LAB MICROBIOLOGY METHOD 07/08/2024 4:18 PM [facility] Coronavirus HKU1 Not Detected Not Detected LAB MICROBIOLOGY METHOD 07/08/2024 4:18 PM EST [facility] Coronavirus OC43 Not Detected Not Detected LAB MICROBIOLOGY METHOD 07/08/2024 4:18 PM [facility] Coronavirus NL63 Not Detected Not Detected LAB MICROBIOLOGY METHOD 07/08/2024 4:18 PM [facility] Parainfluenza Virus 1 Not Detected Not Detected LAB MICROBIOLOGY METHOD 07/08/2024 4:18 PM [facility] Parainfluenza Virus 2 Not Detected Not Detected LAB MICROBIOLOGY METHOD 07/08/2024 4:18 PM [facility] Parainfluenza Virus 3 Not Detected Not Detected LAB MICROBIOLOGY METHOD 07/08/2024 4:18 PM [facility] Parainfluenza Virus 4 Not Detected Not Detected LAB MICROBIOLOGY METHOD 07/08/2024 4:18 PM [facility] RSV PCR Not Detected Not Detected LAB MICROBIOLOGY METHOD 07/08/2024 4:18 PM [facility] Human Metapneumovirus A and B Not Detected Not Detected LAB MICROBIOLOGY METHOD 07/08/2024 4:18 PM [facility] Rhinovirus/Entero virus Not Detected Not Detected LAB MICROBIOLOGY METHOD 07/08/2024 4:18 PM [facility] Bordetella pertussis Not Detected Not Detected LAB MICROBIOLOGY METHOD 07/08/2024 4:18 PM [facility] Bordetella parapertussis Not Detected Not Detected LAB MICROBIOLOGY METHOD 07/08/2024 4:18 PM [facility] Mycoplasma pneumo by PCR Not Detected Not Detected LAB MICROBIOLOGY METHOD 07/08/2024 4:18 PM [facility] Chlamydia pneumoniae Not Detected Not Detected LAB MICROBIOLOGY METHOD 07/08/2024 4:18 PM EST [facility] SARS COV-2 Not Detected Not Detected LAB MICROBIOLOGY METHOD 07/08/2024 4:18 PM EST [facility] Swab Both anterior nares / Unknown Non-blood Collection / Unknown 07/08/2024 2:59 PM EST 07/08/2024 3:15 PM EST Narrative [facility] - 07/08/2024 4:18 PM EST Testing was performed using the [employer] Respiratory Pathogen PCR Assay. All results must [...] MICROBIOLOGY - GENERAL OR DERABLES Final Result [facility] [address] [place] [address], * XR Chest 2 Views (07/08/2024 2:01 PM EST) Anatomical Region Laterality Modality Body Radiographic Jennifer ging 07/08/2024 2:06 PM EST Impressions 07/08/2024 2:07 PM EST No acute findings. -------- FINAL REPORT -------- Dictated By: Henrique Bray Dictated Date: 07/08/2024 14:06 ET Assigned Physician: Henrique Bray Reviewed and Electronically Signed By: Henrique Bray Signed Date: 07/08/2024 14:07 ET Workstation ID: [id number] Transcribed By: Self Edit Transcribed Date: 07/08/2024 [...] Signed Date: 07/08/2024 14:07 ET Workstation ID: [id number] Transcribed By: Self Edit Transcribed Date: 07/08/2024 14:06 ET Jj Wolfe MD IMG XR PROCEDURES Final R esult * Type and screen (07/08/2024 1:18 PM EST) ABO Group O 07/08/2024 2:42 PM EST [facility] Rh Type Positive 07/08/2024 2:42 PM EST [facility] Antibody Screen Negative 07/08/2024 2:42 PM EST [facility] Blood Venous blood specimen / Unknown Venipuncture / Unknown 07/08/2024 1:18 PM EST 07/08/2024 1:34 PM EST Raya HEDRICK LAB BLOOD BANK TEST OR DERABLES Final Result [facility] [address] [place] [address], * (ABNORMAL) Troponin I high sensitivity (07/08/2024 1:18 PM EST) [facility] High Sensitivity Troponin I 81(H) <=54 ng/L LAB CHEMISTRY METHOD 07/08/2024 2:17 PM [facility] Blood Venous blood specimen / Unknown Venipuncture / Unknown 07/08/2024 1:18 PM EST 07/08/2024 1:34 PM EST [facility] - 07/08/2024 2:17 PM EST High levels of biotin in samples may falsely decrease hsTroponin values. ??Use caution when interpreting hsTroponin results in patients taking biotin who exhibit renal impairment (eGFR <60) or in patients taking more than 20 mg/day of biotin. Jj Wolfe MD LAB BLOOD ORDERABLES [place] dominguez Result [facility] [address] [place] [address], * Prepare RBC: 1 Units (07/08/2024 1:17 PM EST) [facility] Product Code [id number] 07/08/2024 4:13 PM [facility] Unit Number [id number] 07/08/19 25 4:13 PM [facility] Crossmatch Compatible 07/08/2024 2:53 PM [facility] Dispense Status Transfused 07/08/2024 4:13 PM [facility] Unit ABO Rh OPOS 07/08/2024 4:13 PM [facility] Unit Expiration Date Time [id number] 07/08/2024 4:13 PM [facility] Unit Blood Type 5100 07/08/2024 4:13 PM [facility] Blood Venous blood specimen / Unknown 07/08/2024 1:17 PM EST 06/17/2024 10:17 AM EST Raya HEDRICK BLOOD BANK PRODUCT ORD ERABLES Final Result Performing Organization Address [facility]/ZIP Co de Phone Number [facility] [address] [place] [address], [place] [phone] * Culture urine (07/08/2024 12:59 PM EST) Culture, Urine No growth 07/09/2024 10:44 AM EST [facility] Urine Urine specimen obtained by clean catch procedure / Unknown Non-blood Collection / Unknown 07/08/2024 12:59 PM EST 07/08/2024 1:21 PM EST Jj Wolfe MD LAB MICROBIOLOGY - GENERA L ORDERABLES Final Result Performing Organization Address [facility] Co de Phone Number [facility] [address] [place] [address], [place] [phone] * Robertson urine culture tube (07/08/2024 12:59 PM EST) Extra Tube Hold for add-ons. 07/08/2024 3:02 PM EST [facility] Comment:Auto resulted. Urine Urine specimen obtained by clean catch procedure / Unknown Non-blood Collection / Unknown 07/08/2024 12:59 PM EST 07/08/2024 1:11 PM EST us Jj Wolfe MD LAB URINE ORDERABLES America l Result Performing Organization Address [facility]/ZIP Co de Phone Number [facility] [address] [place] [address], [place] [phone] * (ABNORMAL) Urinalysis with reflex microscopic and culture (07/08/2024 12:59 PM EST) Specific Byron Urine 1.020 1.003 - 1.030 LAB URINALYSIS - AUTOMATED METHOD 07/08/2024 1:21 PM [facility] pH, Urine 5.5 5.0 - 8.0 pH LAB URINALYSIS - AUTOMATED METHOD 07/08/2024 1:21 PM [facility] Leukocytes, Urine Negative Negative LAB URINALYSIS - AUTOMATED METHOD 07/08/2024 1:21 PM [facility] Nitrite, Urine Negative Negative LAB URINALYSIS - AUTOMATED METHOD 07/08/2024 1:21 PM [facility] Protein, Urine 100(A) <=Trace mg/dL LAB URINALYSIS - AUTOMATED METHOD 07/08/2024 1:21 PM [facility] Glucose, Urine 500(A) Negative mg/dL LAB URINALYSIS - AUTOMATED METHOD 07/08/2024 1:21 PM [facility] Ketones, Urine Negative Negative mg/dL LAB URINALYSIS - AUTOMATED METHOD 07/08/2024 1:21 PM [facility] Urobilinogen, Urine 0.2 0.2 - 1.0 mg/dL LAB URINALYSIS - AUTOMATED METHOD 07/08/2024 1:21 PM [facility] Bilirubin, Urine Negative Negative LAB URINALYSIS - AUTOMATED METHOD 07/08/2024 1:21 PM [facility] Blood, Urine Large(A) Negative LAB URINALYSIS - AUTOMATED METHOD 07/08/2024 1:21 PM [facility] RBC, Urine 21.6(H) 0 - 4 /HPF LAB URINALYSIS - AUTOMATED METHOD 07/08/2024 1:21 PM [facility] WBC, Urine 7.3(H) 0 - 4 /HPF LAB URINALYSIS - AUTOMATED METHOD 07/08/2024 1:21 PM [facility] Squamous Epithelial, Urine 30 0 - 60 /LPF LAB URINALYSIS - AUTOMATED METHOD 07/08/2024 1:21 PM EST [facility] Bacteria, Urine Negative Negative /HPF LAB URINALYSIS - AUTOMATED METHOD 07/08/2024 1:21 PM EST [facility] Hyaline Casts, Urine 1.7 0 - 3 /LPF LAB URINALYSIS - AUTOMATED METHOD 07/08/2024 1:21 PM EST [facility] Urine Urine specimen obtained by clean catch procedure / Unknown Non-blood Collection / Unknown 07/08/2024 12:59 PM EST 07/08/2024 1:11 PM EST Jj Wolfe MD LAB URINE ORDERABLES America dominguez Result [facility] [address] [place] [address], * CT Head wo Contrast (07/08/2024 12:11 [...] Signed Date: 07/08/2024 12:23 ET Workstation ID: [id number] Transcribed By: Self Edit Transcribed Date: 07/08/2024 [...] Signed Date: 07/08/2024 12:23 ET Workstation ID: [id number] Transcribed By: Self Edit Transcribed Date: 07/08/2024 [...] Signed Date: 07/08/2024 12:27 ET Workstation ID: [id number] Transcribed By: Self Edit Transcribed Date: 07/08/2024 [...] Signed Date: 07/08/2024 12:27 ET Workstation ID: [id number] Transcribed By: Self Edit Transcribed Date: 07/08/2024 12:24 ET Raya HEDRICK IMG CT PROCEDURES America l Result * (ABNORMAL) Creatine kinase and CKMB (07/08/2024 11:10 AM EST) Pathologist [facility] Total CK 649(H) 22 - 269 unit/L LAB CHEMISTRY METHOD 07/08/2024 3:51 PM EST [facility] Comment:Hemolysis present CK-MB 13.1(H) 1.0 - 3.6 ng/mL LAB CHEMISTRY METHOD 07/08/2024 3:51 PM EST [facility] CK-MB Index 0.0 0.0 - 5.0 LAB CHEMISTRY METHOD 07/08/2024 3:51 PM EST [facility] Blood Venous blood specimen / Unknown Venipuncture / Unknown 07/08/2024 11:10 AM EST 07/08/2024 11:42 AM EST us Wayne Donaheu MD LAB BLOOD ORDERABLES Final Re sult [facility] [address] [place] [address], * (ABNORMAL) Iron and TIBC (07/08/2024 11:10 AM EST) [facility] Iron 20(L) 40 - 150 mcg/dL LAB CHEMISTRY METHOD 07/08/2024 3:44 PM EST [facility] Comment:Hemolysis present TIBC 186(L) 250 - 450 mcg/dL LAB CHEMISTRY METHOD 07/08/2024 3:44 PM EST [facility] Iron Saturation 11(L) 15 - 50 % LAB CHEMISTRY METHOD 07/08/2024 3:44 PM EST [facility] Blood Venous blood specimen / Unknown Venipuncture / Unknown 07/08/2024 11:10 AM EST 07/08/2024 11:42 AM EST us Wayne Donahue MD LAB BLOOD ORDERABLES Final Re sult [facility] [address] [place] [address], [place] [phone] * (ABNORMAL) Ferritin (07/08/2024 11:10 AM EST) Ferritin 708(H) 8 - 252 ng/mL LAB CHEMISTRY METHOD 07/08/2024 3:51 PM [facility] Blood Venous blood specimen / Unknown Venipuncture / Unknown 07/08/2024 11:10 AM EST 07/08/2024 11:42 AM EST Wayne Donahue MD LAB BLOOD ORDERABLES Final Re sult [facility] [address] [place] [address], * (ABNORMAL) Reticulocyte count (07/08/2024 11:10 AM EST) Pathologist [facility] Retic Ct Abs 0.050 0.030 - 0.090 M/mcL LAB HEMETOLOGY METHOD 07/08/2024 2:52 PM [facility] Retic Ct Pct 1.4 0.7 - 1.7 % LAB HEMETOLOGY METHOD 07/08/2024 2:52 PM [facility] Immature Retic Fract 24.5(H) 2.3 - 15.9 % LAB HEMETOLOGY METHOD 07/08/2024 2:52 PM [facility] Reticulocyte Hemoglobin 22.5(L) >29.0 pcg LAB HEMETOLOGY METHOD 07/08/2024 2:52 PM [facility] Blood Venous blood specimen / Unknown Venipuncture / Unknown 07/08/2024 11:10 AM EST 07/08/2024 11:42 AM EST us Wayne Donahue MD LAB BLOOD ORDERABLES Final Re sult [facility] [address] [place] [address], [place] [phone] * (ABNORMAL) Haptoglobin (07/08/2024 11:10 AM EST) Pathologist [facility] Haptoglobin 570(H) 16 - 200 mg/dL LAB CHEMISTRY METHOD 07/08/2024 3:44 PM EST [facility] Blood Venous blood specimen / Unknown Venipuncture / Unknown 07/08/2024 11:10 AM EST 07/08/2024 11:42 AM EST us Wayne Donahue MD LAB BLOOD ORDERABLES Final Re sult Performing Organization Address City/[facility]/ZIP Co de Phone Number [facility] [address] [place] [address], [place] [phone] * (ABNORMAL) Folate (07/08/2024 11:10 AM EST) [facility] Folate >20.0(H) 2.8 - 17.0 ng/ml LAB CHEMISTRY METHOD 07/08/2024 3:51 PM EST [facility] Blood Venous blood specimen / Unknown Venipuncture / Unknown 07/08/2024 11:10 AM EST 07/08/2024 11:42 AM EST us Wayne Donahue MD LAB BLOOD ORDERABLES Final Re sult [facility] [address] [place] [address], [place] [phone] * Vitamin B12 (07/08/2024 11:10 AM EST) Pathologist [facility] Vitamin B-12 384 250 - 900 pcg/mL LAB CHEMISTRY METHOD 07/08/2024 3:51 PM EST [facility] Blood Venous blood specimen / Unknown Venipuncture / Unknown 07/08/2024 11:10 AM EST 07/08/2024 11:42 AM EST us Wayne Donahue MD LAB BLOOD ORDERABLES Final Re sult Performing Organization Address [facility]/ZIP Co de Phone Number [facility] [address] [place] [address], [place] [phone] * Cortisol (07/08/2024 11:10 AM EST) Cortisol 58.1 mcg/dL LAB CHEMISTRY METHOD 07/08/2024 3:38 PM EST [facility] Blood Venous blood specimen / Unknown Venipuncture / Unknown 07/08/2024 11:10 AM EST 07/08/2024 11:42 AM EST Narrative [facility] - 07/08/2024 3:38 PM EST CORTISOL REFERENCE RANGE ?? 8 AM SPEC: ??5.0-23.0 mcg/dL ?? 4 PM SPEC: ??3.0-16.0 mcg/dL ?? 8 PM SPEC: ??<5.0 mcg/dL us Wayne Donahue MD LAB BLOOD ORDERABLES Final Re sult Performing Organization Address [facility]/ZIP Co de Phone Number [facility] [address] [place] [address], [place] [phone] * (ABNORMAL) Thyroid stimulating hormone (07/08/2024 11:10 AM EST) TSH 4.50(H) 0.40 - 4.00 mcIU/mL LAB CHEMISTRY METHOD 07/08/2024 3:31 PM EST [facility] Blood Venous blood specimen / Unknown Venipuncture / Unknown 07/08/2024 11:10 AM EST 07/08/2024 11:42 AM EST us Wayne Donahue MD LAB BLOOD ORDERABLES Final Re sult [facility] [address] [place] [address], [place] [phone] * Uric acid (07/08/2024 11:10 AM EST) Uric Acid 7.2 3.1 - 7.8 mg/dL LAB CHEMISTRY METHOD 07/08/2024 3:44 PM EST [facility] Blood Venous blood specimen / Unknown Venipuncture / Unknown 07/08/2024 11:10 AM EST 07/08/2024 11:42 AM EST us Wayne Donahue MD LAB BLOOD ORDERABLES Final Re sult [facility] [address] [place] [address], [place] [phone] * (ABNORMAL) Osmolality (07/08/2024 11:10 AM EST) Osmolality Iván 307(H) 280 - 300 mOsm/kg LAB CHEMISTRY METHOD 07/08/2024 6:51 PM EST [facility] Blood Venous blood specimen / Unknown Venipuncture / Unknown 07/08/2024 11:10 AM EST 07/08/2024 11:42 AM EST us Wayne Donahue MD LAB BLOOD ORDERABLES Final Re sult [facility] [address] [place] [address], [place] [phone] * (ABNORMAL) Parathyroid hormone intact (07/08/2024 11:10 AM EST) PTH 6.5(L) 18.5 - 88.0 pcg/mL LAB CHEMISTRY METHOD 07/08/2024 3:31 PM EST [facility] Blood Venous blood specimen / Unknown Venipuncture / Unknown 07/08/2024 11:10 AM EST 07/08/2024 11:42 AM EST us Wayne Donahue MD LAB BLOOD ORDERABLES Final Re sult [facility] [address] [place] [address], * (ABNORMAL) CBC auto differential (07/08/2024 11:10 AM EST) WBC 18.9(H) 4.8 - 10.8 K/mcL LAB HEMETOLOGY METHOD 07/08/2024 11:51 AM [facility] RBC 3.30(L) 3.80 - 4.80 M/mcL LAB HEMETOLOGY METHOD 07/08/2024 11:51 AM [facility] Hemoglobin 7.3(L) 11.5 - 16.0 g/dL LAB HEMETOLOGY METHOD 07/08/2024 11:51 AM [facility] Hematocrit 23.7(L) 35.0 - 47.0 % LAB HEMETOLOGY METHOD 07/08/2024 11:51 AM [facility] MCV 72.3(L) 79.0 - 98.0 FL LAB HEMETOLOGY METHOD 07/08/2024 11:51 AM [facility] MCH 22.3(L) 27.0 - 32.0 pcg LAB HEMETOLOGY METHOD 07/08/2024 11:51 AM [facility] MCHC 30.8(L) 32.0 - 37.0 g/dL LAB HEMETOLOGY METHOD 07/08/2024 11:51 AM [facility] RDW 16.4(H) 11.0 - 15.0 % LAB HEMETOLOGY METHOD 07/08/2024 11:51 AM [facility] Platelets 408(H) 130 - 400 K/mcL LAB HEMETOLOGY METHOD 07/08/2024 11:51 AM [facility] MPV 8.9 7.0 - 11.0 FL LAB HEMETOLOGY METHOD 07/08/2024 11:51 AM [facility] NRBC 0.0 <1.0 % LAB HEMETOLOGY METHOD 07/08/2024 11:51 AM [facility] NRBC Absolute 0.00 <0.10 K/mcL LAB HEMETOLOGY METHOD 07/08/2024 11:51 AM [facility] Neutrophils Relative 89.5 % LAB HEMETOLOGY METHOD 07/08/2024 11:51 AM [facility] Lymphocytes Relative 2.4 % LAB HEMETOLOGY METHOD 07/08/2024 11:51 AM [facility] Monocytes Relative 7.0 % LAB HEMETOLOGY METHOD 07/08/2024 11:51 AM [facility] Eosinophils Relative 0.2 % LAB HEMETOLOGY METHOD 07/08/2024 11:51 AM [facility] Basophils Relative 0.2 % LAB HEMETOLOGY METHOD 07/08/2024 11:51 AM [facility] Immature Granulocytes Relative 0.7 % LAB HEMETOLOGY METHOD 07/08/2024 11:51 AM [facility] Neutrophils Absolute 16.86(H) 1.50 - 7.00 K/mcL LAB HEMETOLOGY METHOD 07/08/2024 11:51 AM [facility] Lymphocytes Absolute 0.46(L) 1.00 - 5.00 K/mcL LAB HEMETOLOGY METHOD 07/08/2024 11:51 AM [facility] Monocytes Absolute 1.32(H) 0.20 - 1.00 K/mcL LAB HEMETOLOGY METHOD 07/08/2024 11:51 AM [facility] Eosinophils Absolute 0.04 0.00 - 0.50 K/mcL LAB HEMETOLOGY METHOD 07/08/2024 11:51 AM [facility] Basophils Absolute 0.04 0.00 - 0.20 K/[facility] LAB HEMETOLOGY METHOD 07/08/2024 11:51 AM EST [facility] Immature Granulocytes Absolute 0.13(H) 0.00 - 0.03 K/[facility] LAB HEMETOLOGY METHOD 07/08/2024 11:51 AM EST [facility] Blood Venous blood specimen / Unknown Venipuncture / Unknown 07/08/2024 11:10 AM EST 07/08/2024 11:42 AM EST Jj Wolfe MD LAB BLOOD ORDERABLES America l Result [facility] [address] [place] [address], [place] [phone] * B-type natriuretic peptide (07/08/2024 11:10 AM EST) BNP 86 <=100 pcg/mL LAB CHEMISTRY METHOD 07/08/2024 12:26 PM [facility] Blood Venous blood specimen / Unknown Venipuncture / Unknown 07/08/2024 11:10 AM EST 07/08/2024 11:42 AM EST Jj Wolfe MD LAB BLOOD ORDERABLES America l Result [facility] [address] [place] [address], [place] [phone] * Magnesium (07/08/2024 11:10 AM EST) Magnesium 2.1 1.9 - 2.6 mg/dL LAB CHEMISTRY METHOD 07/08/2024 12:54 PM EST [facility] Comment:Hemolysis present Blood Venous blood specimen / Unknown Venipuncture / Unknown 07/08/2024 11:10 AM EST 07/08/2024 11:42 AM EST Jj Wolfe MD LAB BLOOD ORDERABLES America l Result [facility] [address] [place] [address], [place] [phone] * (ABNORMAL) Lipase (07/08/2024 11:10 AM EST) Lipase <10(L) 13 - 75 unit/L LAB CHEMISTRY METHOD 07/08/2024 12:54 PM [facility] Blood Venous blood specimen / Unknown Venipuncture / Unknown 07/08/2024 11:10 AM EST 07/08/2024 11:42 AM EST Jj Wolfe MD LAB BLOOD ORDERABLES [place] Result Performing Organization Address City/[facility]/ZIP Co de Phone Number [facility] [address] [place] [address], [place] [phone] * (ABNORMAL) Comprehensive metabolic panel (07/08/2024 11:10 AM EST) Pathologist [facility] Sodium 126(L) 133 - 145 mmol/L LAB CHEMISTRY METHOD 07/08/2024 12:54 PM [facility] Potassium 4.2 3.5 - 5.5 mmol/L LAB CHEMISTRY METHOD 07/08/2024 12:54 PM [facility] Comment:Hemolysis present Chloride 93(L) 96 - 110 mmol/L LAB CHEMISTRY METHOD 07/08/2024 12:54 PM [facility] CO2 21 21 - 32 mmol/L LAB CHEMISTRY METHOD 07/08/2024 12:54 PM [facility] Anion Gap 12(H) 3 - 11 LAB CHEMISTRY METHOD 07/08/2024 12:54 PM [facility] Glucose 265(H) 70 - 100 mg/dL LAB CHEMISTRY METHOD 07/08/2024 12:54 PM [facility] BUN 59(H) 5 - 25 mg/dL LAB CHEMISTRY METHOD 07/08/2024 12:54 PM [facility] Comment:Results verified by repeat testing Creatinine 4.10(H) 0.50 - 1.10 mg/dL LAB CHEMISTRY METHOD 07/08/2024 12:54 PM [facility] Comment:Results verified by repeat testing eGFR 10(L) >=60 mL/min/1. 73m2 LAB CHEMISTRY METHOD 07/08/2024 12:54 PM [facility] Comment:Calculation based on the??Chronic Kidney Disease Epidemiology Collaboration (CKD-EPI) equation refit??without adjustment for race. BUN/Creatinine Ratio 14.4 LAB CHEMISTRY METHOD 07/08/2024 12:54 PM [facility] Calcium 10.6(H) 8.5 - 10.5 mg/dL LAB CHEMISTRY METHOD 07/08/2024 12:54 PM [facility] AST (SGOT) 57(H) 10 - 42 unit/L LAB CHEMISTRY METHOD 07/08/2024 12:54 PM [facility] Comment:Hemolysis present ALT (SGPT) 39 10 - 60 unit/L LAB CHEMISTRY METHOD 07/08/2024 12:54 PM [facility] Alkaline Phosphatase 149(H) 42 - 121 unit/L LAB CHEMISTRY METHOD 07/08/2024 12:54 PM [facility] Total Protein 6.3 6.0 - 8.0 g/dL LAB CHEMISTRY METHOD 07/08/2024 12:54 PM [facility] Albumin 2.1(L) 3.2 - 5.0 g/dL LAB CHEMISTRY METHOD 07/08/2024 12:54 PM [facility] Total Bilirubin 0.4 0.0 - 1.4 mg/dL LAB CHEMISTRY METHOD 07/08/2024 12:54 PM [facility] Blood Venous blood specimen / Unknown Venipuncture / Unknown 07/08/2024 11:10 AM EST 07/08/2024 11:42 AM EST Jj Wolfe MD LAB BLOOD ORDERABLES [place] l Result Performing Organization Address [facility]/ZIP Co de Phone Number [facility] [address] [place] [address], [place] [phone] * (ABNORMAL) Troponin I high sensitivity (07/08/2024 11:10 AM EST) [facility] High Sensitivity Troponin I 80(H) <=54 ng/L LAB CHEMISTRY METHOD 07/08/2024 12:20 PM EST [facility] Blood Venous blood specimen / Unknown Venipuncture / Unknown 07/08/2024 11:10 AM EST 07/08/2024 11:42 AM EST Narrative [facility] - 07/08/2024 12:20 PM EST High levels of biotin in samples may falsely decrease hsTroponin values. ??Use caution when interpreting hsTroponin results in patients taking biotin who exhibit renal impairment (eGFR <60) or in patients taking more than 20 mg/day of biotin. us Jj Wolfe MD LAB BLOOD ORDERABLES [place] l Result Performing Organization Address [facility] de Phone Number [facility] [address] [place] [address], [place] [phone] * ECG 12 lead (07/08/2024 10:46 AM EST) [facility] Ventricular Rate ECG 94 BPM GEMUSE Atrial Rate 94 BPM GEMUSE P-R Interval 196 ms GEMUSE QRS Duration 118 ms GEMUSE Q-T Interval 354 ms GEMUSE QTc 442 ms GEMUSE P Wave [place] 79 degrees GEMUSE R [place] 15 degrees GEMUSE T [place] 4 degrees GEMUSE ECG Interpretation Sinus rhythm [...] at 2100 2053 (Given - Provider: María Hawk, RN) 1145 (AUG Hold - Provider: Automatic [...] Provider)2124 (Given - Provider: Katina Machuca, ILIR) insulin [...] Davidson RN)212 (Given - Provider: Katina Machuca, RN) 0732 (Not Given - Provider: Jacquelin [...] Jolene Cardona RN)1130 (Given - Provider: Jolene Cardona, ILIR)1746 (Given - Provider: Jolene Cardona, ILIR) 0720 (Not Given - Provider: Jacquelin Davidson RN - Reason: Patient not available)1056 (Not Given - Provider: Jacquelin Davidson RN - Reason: Patient not available)1145 ([facility] Hold - Provider: Automatic Transfer Provider - Reason: Patient not available)1424 ([facility] Unhold - Provider: Automatic Transfer Provider)1646 (Given [...] 0651 (Given - Provider: María Hawk RN)1145 ([facility] Hold - Provider: Automatic [...] Transfer Provider)2126 (Given - Provider: Katina Machuca, ILIR) 0930 (Given - Provider: Jacquelin Davidson RN) sulfamethoxazole-trimet hoprim (BACTRIM DS,SEPTRA DS) 800-160 mg per tablet 160 mg 160 mg, oral, 3 times weekly (Once per day on Thursday), First dose on Thu07/22/24 at 0900, For 20 days, Indication: Prophylaxis-Medical 0829 (Not Given - Provider: Jacquelin Davidson, ILIR - Reason: Patient not available)1145 ([facility] Hold - Provider: Automatic Transfer Provider - Reason: Patient not available)142 ([facility] Unhold - Provider: Automatic Transfer Provider) thiamine (VITAMIN B-1) tablet 100 mg 100 mg, oral, Daily, First dose on Thu07/18/24 at 1700 0853 (Given - Provider: Jolene Cardona, ILIR) 0829 (Not Given - Provider: Jacquelin Davidson RN - Reason: Patient not available)1145 ([facility] Hold - Provider: Automatic Transfer Provider - Reason: Patient not available)142 ([facility] Unhold - Provider: Automatic [...] Transfer Provider - Reason: Patient not available)142 ([facility] Unhold - Provider: Automatic Transfer Provider)2124 (Given - Provider: Katina Machuca, ILIR) acetaminophen (TYLENOL) tablet 650 mg 650 mg, oral, Once as needed, mild pain, headaches, fever - temperature GREATER than 38 C (100.4 F), Starting on Thu07/28/24 at 1140, For 1 dose 1145 ([facility] Hold - Provider: Automatic Transfer Provider - Reason: Patient not available)142 ([facility] Unhold - Provider: Automatic [...] Thu07/08/24 at 1649, For 1 dose 1145 ([facility] Hold - Provider: Automatic Transfer Provider - Reason: Patient not available)1424 ([facility] Unhold - Provider: Automatic Transfer Provider) hydrALAZINE (APRESOLINE) injection 10 mg 10 mg, intravenous, Every 6 hours PRN, systolic BP greater than:, SBP>160, Starting on Thu07/09/24 at 1504 1145 ([facility] Hold [...] (Given - Provider: María Hawk, ILIR) 1145 ([facility] - Provider: Automatic Transfer Provider - Reason: [...] Transfer Provider - Reason: Patient not available)142 ([facility] Unhold - Provider: Automatic [...] Transfer Provider - Reason: Patient not available)142 ([facility] Unhold - Provider: Automatic [...] documented as of this encounter Care Teams Editor Managing Director Relationship Specialty Start Date End Date Eloisa Vázquez DO [address] [place] [address] PCP - General 04/12/24 documented as of this encounter
--- OUTSIDE RECORDS SUMMARY | 2024-08-29 06:43 | XMS_ITS | Encounter Summary ---
Author Organization [facility] Address [address] [address] Phone Care Team Providers Care Cardiac Catheterization Technologist Name Role Phone BrigidoeverardoMarieEloisa Primary Care Provider [phone] Reason for Referral * Outpatient Services (Routine) - Closed Specialty Diagnoses / Procedures Referred By Conthector t Referred To Contact Diagnoses ANCA associated vasculitis (HCC) 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) Procedures Rituxan Infusion Orders Anthony Norton MD [address] [address] Phone: tel: fax: Referral ID Status Reason Start Date Expiration Date Visits Re quested Visits Authorized [id number] Closed 08/08/2024 08/08/2025 1 1 Encounter Details Date Type Department Care Team (Latest Contact Info) Description 08/08/2024 Office Communication [facility] [address] [address] Anthony Norton MD [address] [address] ANCA associated vasculitis (HCC) (Primary [...] Need to schedule IV rituxin--she is at [facility] She needs infusion for 08/12/24--I will put orde in our EPIC but u will need to cntact [facility] tocoordinate documented in this encounter Plan of Treatment Not on file documented as of this encounter Visit Diagnoses Diagnosis ANCA associated vasculitis (HCC)- Primary 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) 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 documented in this encounter Care Teams Cardiac Catheterization Technologist Relationship Specialty Start Date End Date Eloisa Vázquez [address] [place] [address] PCP - General Internal Medicine 07/11/24 documented as of this encounter
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
--- OUTSIDE RECORDS SUMMARY | 2024-08-29 06:43 | XMS_ITS | Encounter Summary ---
Author Organization [facility] Address [address] [place] [address] Care Team Providers Care Field Investigator Name Role Phone Eloisa Vázquez DO Primary Care Provider [phone] Reason for Visit * Auth/Cert Specialty Diagnoses / Procedures Referred By Conthector t Referred To Contact Diagnoses Acute encephalopathy Procedures . Wayne Donahue MD [address] [place] [address] Phone: tel: fax: [facility] Emergency [address] [place] [address] Phone: tel: Referral ID Status Reason Start Date Expiration Date Visits Re quested Visits Authorized [id number] 1 1 Encounter Details Date Type Department Care Team (Late st Contact Info) Description 08/05/2024 11:46 AM EST Anesthesia Event [facility] Main OR [address] [place] [address] Monroe Kim MD [address] [place] [address] Anesthesia Record Procedure Summary Procedure Name Responsible [...] transport to designated recovery area. {Transport to PACU/ICU:[id number]} 1309 Handoff to RN I completed my [...] Yes; Single Lumen; 18 G; Powerglide Lot: [id number]; 10 cm; Right; Basilic; Chlorhexidine; Yes; (mask,gloves,drape); [...] Procedure Summary Date: 08/05/24 Room / Location: [facility] OR [address] [place] [address] OR Anesthesia Start: 1146 Anesthesia Stop: 1310 [...] during procedure: OR Anesthesiologist: Monroe Kim MD Resident/VAN DRIVER HELPER: Candelaria Tatum CRNA Performed: resident/VAN DRIVER HELPER/CAA Performed by: Candelaria Tatum CRNA Authorized by: Mnoroe Kim MD Intubation Airway not difficult Urgency: [...] complication, without long-term current use of insulin ([facility]) Other (+) Iron deficiency anemia Clinical information [...] 10:00 AM EDT Office Visit Endocrinology - [place] [address] [place] [address] Kathy Michelle PA [address] [place] [address] 09/06/2024 11:00 AM EDT Ancillary Procedure [facility] - [address] [place] [phone] 10/06/2024 1:15 PM EDT Office Visit Internal Medicine - [place] [address] [place] [address] Eloisa Vázquez DO [address] [place] [address] 11/14/2024 11:30 AM EDT Appointment [facility] CT Scan [address] [place] [phone] 12/01/2024 10:00 AM EDT Office Visit Thoracic Surgery - [place] 299 [facility] [address] [place] [phone] Cecily Montez MD 299 [facility] [address] [place] [address] documented as of this encounter Procedures Procedure [...] during procedure: OR Anesthesiologist: Monroe Kim MD Resident/VAN DRIVER HELPER: Candelaria Tatum CRNA Performed: resident/VAN DRIVER HELPER/CAA Performed by: Candelaria Tatum CRNA Authorized by: [...] documented as of this encounter Care Teams Field Investigator Relationship Specialty Start Date End Date Eloisa Vázquez DO [facility] [place] [address] PCP - General 04/12/24 documented as of this encounter
--- OUTSIDE RECORDS SUMMARY | 2024-08-29 06:43 | XMS_ITS | Encounter Summary ---
Author Organization [facility] Address [address] [place] [address] Care Team Providers Care Mold Making Supervisor Name Role Phone Marie Vázquezmankamryn CHERY Primary Care Provider [phone] Reason for Visit * Reason Onset Date Comments Pre-op Visit 07/05/2024 Encounter Details Date Type Department Care Team (Late st Contact Info) Description 07/05/2024 Telephone [facility] - [facility] [address] [facility] [address] [place] [address] Primo Navarro MD 300 [facility] [address] [place], [place] [phone] Pre-op Visit Social History Tobacco Use Types [...] Had some coronary calcifications on CT at [place] though without anginal symptoms don't feel strongly about need to start aspirin at this time as I doubt it would significantly alter her erin-op [place]/CA risk. Currently Ríos Risk is ~1-2% but [...] 10:00 AM EDT Office Visit Endocrinology - [place] [address] [place] [address] Kathy Michelle PA [address] [place], [place] 09/06/2024 11:00 AM EDT Ancillary Procedure [facility] - [address] [place] [phone] 10/06/2024 1:15 PM EDT Office Visit Internal Medicine - [facility] [address] [place] [address] Eloisa Vázquez DO [address] [place] [address] 11/14/2024 11:30 AM EDT Appointment [facility] CT Scan [address] [place] [phone] 12/01/2024 10:00 AM EDT Office Visit Thoracic Surgery - [place] [address] [address] Cecily Montez MD [address] [address] documented as of this encounter Visit Diagnoses Not on filedocumented in this encounter Additional Health Concerns Infection Onset Date Last Indicated Resolved Time Respiratory Rule-Out 07/08/2024 07/08/2024 025 4:18 PM EST COVID-19 Rule-Out 07/08/2024 07/08/2024 07/08/2024 4:18 PM EST documented as of this encounter Care Teams Mold Making Supervisor Relationship Specialty Start Date End Date Eloisa Vázquez DO [address] [place] [address] PCP - General 04/12/24 documented as of this encounter
--- OUTSIDE RECORDS SUMMARY | 2024-08-29 06:43 | XMS_ITS | Encounter Summary ---
Author Organization [facility] Address [address] [place] [address] Care Team Providers Care Career Consultant Name Role Phone Eloisa Vázquez DO Primary Care Provider [phone] Reason for Visit * Consultation (Routine) - Closed Specialty Diagnoses / Procedures Referred By Daksha godoy Referred To Contact Gastroenterology Diagnoses History of cancer of unknown primary site Iron deficiency anemia, unspecified iron deficiency anemia type Eloisa Vázquez DO [address] [place] [address] Phone: tel: fax: Gastroenterology - [address] [place] [address] Phone: tel: fax: Referral ID Status Reason Start Date Expiration Date V isits Requested Visits Authorized [id number] Closed Specialty Services Required 06/01/2024 06/01/2025 1 1 Encounter Details Date Type Department Care Team ([facility] st Contact Info) Description 08/23/2024 3:00 PM EST Office Visit Gastroenterology - [address] [facility] [address] [place] [id number] Josiane Smith, JUNITO 299 [facility] [address] [place] [address] Iron deficiency anemia, unspecified iron deficiency anemia type; History of cancer of unknown primary site Social History Tobacco Use Types Packs/Day Years [...] documented in this encounter Progress Notes * Josiane Smith NP - 08/23/2024 3:00 PM ESTAssociated Problem(s): Iron deficiency anemia Patient and her daughter decline GI workup for iron deficiency anemia. See H&P * Josiane Smith NP - 08/23/2024 3:00 PM EST CHIEF COMPLAINT: No chief complaint on file. DATE OF LAST ENDOSCOPIC PROCEDURES: HPI: Ana Contreras is a 79 y.o. old female who was originally referred to us by Eloisa Vázquez DO now presents to the gastroenterology department todayas a new patient with a diagnosis of iron deficiency anemia. Ms Contreras is accompanied by her daughter today. She was transported here via EMT on [employer] for this visit. Ms. Contreras has multiple medical issues including kidney failure on dialysis, diabetes, a lung mass and a recent DVT for which she is on anticoagulation. She recently receivedan iron infusion and her last Hgb was 8.0 and Hct 24. She denies abdominal pain. She has some constipation but denies blood in stool or melena. Her weight is slowly decreasing per her daughter. She had no upper GI complaints. I discussed the workup for iron deficiency with both the patient and her daughter, which would include colonoscopy, upper endoscopy and potentially small bowel capsule endoscopy. Risks vs benefits were discussed and the decision was made NOT to pursue any GI workup for this due to her advanced age and multiple medical issues. They are aware that without testing, colon polyps, lesions, cancer or the source of GI bleeding will not be found. We would recommend blood transfusion prn. ROS: GENERAL: No malaise, significant weight loss or fever HEENT: No changes in hearing or vision or swallowing problems RESPIRATORY: No cough, wheezing or shortness of breath CARDIOVASCULAR: No chest pain, leg swelling or palpitations GI: See H&P The remainder of the review of systems is reviewed and negative. PAST MEDICAL HISTORY: Past Medical History: Diagnosis Date Anemia Arthritis [...] nodule Microalbuminuria 09/22/2016 DX:Microalbuminuria Osteoporosis 02/14/2014 DX:Osteoporosis PAST SURGICAL HISTORY: Past Surgical History: Procedure Laterality Date CATARACT EXTRACTION Bilateral 2020 PROCEDURE: HISTORICAL CATARACT REMOVAL OTHER SURGICAL HISTORY 05/2012 PROCEDURE: ---- OTHER ----; COMMENT: lumbar microdiscectomy SOCIAL HISTORY: Social History Tobacco Use Smoking [...] Known Problems Sister No Known Problems Sister ACTIVE MEDICATIONS: Current Outpatient Medications Medication Sig Dispense Refill apixaban (ELIQUIS) 5 mg tablet Take 2 tablets (10 mg total) by mouth 2 (two) times a day for 3 days, THEN 1 tablet (5 mg total) 2 (two) times a day. B complex-vitamin C-folic acid (NEPHRO-SAVITA) 0.8 mg tablet Take 1 tablet by mouth 1 (one) time eachday. carvediloL (COREG) 3.125 mg tablet Take by mouth 2 (two) times a day with meals. cetirizine (ZyrTEC) 10 mg chewable tablet Take [...] No current facility-administered medications for this visit. Facility-Administered Medications Ordered in Other Visits Medication Dose Route Frequency Provider Last Rate Last Admin acetaminophen (TYLENOL) tablet 650 mg 650 mg oral Once PRN Chencho Wayne MD albuterol 2.5 mg /3 mL (0.083 %) nebulizer solution 2.5 mg 2.5 mg nebulization q10 min PRN MD Naeem diphenhydrAMINE (BENADRYL) injection 25 mg 25 mg intravenous Once PRN Chencho Wayne MD diphenhydrAMINE (BENADRYL) injection 50 mg 50 mg intravenous Once PRN Chencho Wayne MD EPINEPHrine (ADRENALIN) IM Kit - adult 0.3 mg 0.3 mg intramuscular q15 min PRN Chencho Wayne MD famotidine (PF) (PEPCID) injection 20 mg 20 mg intravenous Once PRN Chencho Wayne MD hydrocortisone sod succ (PF) (SOLU-CORTEF) injection 100 mg 100 mg intravenous Once PRN Chencho Wayne MD meperidine (PF) (DEMEROL) 25 mg/mL injection 25 mg 25 mg intravenous q10 min PRN Chencho Wayne MD sodium chloride 0.9 % bolus 500 mL 500 mL intravenous Once PRN Chencho Wayne MD ALLERGIES: No Known Allergies PHYSICAL EXAM: Examined in W/C APPEARANCE: Alert and in no acute distress Visibly uncomfortable sitting in wheelchair EYES: PERRLA, conjunctiva and sclera normal.Legally blind HEART: RRR with normal S1 and S2, no murmurs appreciated LUNG: clear to auscultation ABDOMEN: nontender NEURO: Awake, alert and oriented x 3 Assessment/Plan Assessment & Plan Iron deficiency anemia, unspecified iron deficiency anemia type Patient and her daughter decline GI workup for iron deficiency anemia. See H&P Transfuse as needed I would like to thank Eloisa Vázquez DO for the opportunity to partake in the patient's care. Board Certified Gastroenterology [facility] W [phone] [place] [address] [address] [place] [address] [email or web address] Josiane Smith NP documented in this encounter Plan of Treatment Upcoming Encounters Date Type Department Care Team (Late st Contact Info) Description 09/05/2024 10:00 AM EDT Office Visit Endocrinology - [place] [address] [place] [address] Kathy Michelle PA [address] [place] [address] 09/06/2024 11:00 AM EDT Ancillary Procedure [facility] [address] [place] [address] 10/06/2024 1:15 PM EDT Office Visit Internal Medicine - [place] [place] [address] Eloisa Vázquez DO [address] [place] [address] 11/14/2024 11:30 AM EDT Appointment [facility] CT Scan [address] [place] [phone] 12/01/2024 10:00 AM EDT Office Visit Thoracic Surgery - [place] 299 [facility] [address] [place] [phone] Cecily Montez MD 299 [facility] [address] [place] [address] documented as of this encounter Visit Diagnoses Diagnosis Iron deficiency anemia, unspecified iron deficiency anemia type History of cancer of unknown primary site documented in this encounter Orders Outpatient Referral Count Last Ordered Date Fir st Ordered Date AMB REFERRAL TO GASTROENTEROLOGY 08/23/19 documented in this encounter Additional Health Concerns Infection Onset Date Last Indicated Resolved Time Tuberculosis Rule-Out 08/05/2024 08/05/2024 documented as of this encounter Care Teams Career Consultant Relationship Specialty Start Date End Date Eloisa Vázquez DO [address] [place] [address] PCP - General 04/12/24 documented as of this encounter
--- OUTSIDE RECORDS SUMMARY | 2024-08-29 06:44 | XMS_ITS | Encounter Summary ---
Author Organization [facility] Address [address] [address] Phone Care Team Providers Care Private Pilot Name Role Phone Eloisa Vázquez Primary Care Provider [phone] Encounter Details Date Type Department Care Team (Late st Contact Info) Description 08/11/2024 Orders Only [facility] [address] [address] Anthony Norton MD [address] [address] ANCA associated vasculitis (HCC); Acute [...] 2:52 PM EST Anthony Norton MD LAB [id number] SOLICITED RESULTS Final Result Performing Organization Address City/[facility]/ZIP Co de Phone Number [facility] [address] [place] [address] * (ABNORMAL) Glucose, random (08/10/2024 3:00 AM EST) Glucose 232(H) 74 - 109 mg/dL [facility] 08/10/2024 3:00 AM EST 08/11/2024 2:52 PM EST Anthony Norton MD LAB BLOOD ORDERABLES Final Re sult Performing Organization Address City/[facility]/ZIP Co de Phone Number [facility] [address] [place] [address] * (ABNORMAL) Basic Metabolic Panel Bundled (08/10/2024 [...] 2:52 PM EST Anthony Norton MD LAB [id number] SOLICITED RESULTS Final Result Performing Organization Address [facility] de Phone Number [facility] [address] [place] [address] * Aluminum level (08/08/2024 3:00 AM EST) Aluminum 4 1 - 20 ug/L [facility] 08/08/2024 3:00 AM EST 08/09/2024 1:21 PM EST Anthony Norton MD LAB BLOOD ORDERABLES Final Re sult Performing Organization Address [facility] de Phone Number [facility] [address] [place] [address] * Hepatitis B Core Antibody, Total (08/08/2024 3:00 AM EST) HBc Total Ab, S Negative Negative [facility] 08/08/2024 3:00 AM EST 08/09/2024 1:17 PM EST us Anthony Norton MD LAB BLOOD ORDERABLES Final Re sult Performing Organization Address [facility] de Phone Number [facility] [address] [place] [address] * Confirmation Test HCV (08/08/2024 3:00 AM EST) Pathologist [facility] Hep C Ab Confirmation Not needed [facility] 08/08/2024 3:00 AM EST 08/09/2024 1:15 PM EST Anthony Norton MD LAB BLOOD ORDERABLES Final Re sult Performing Organization Address [facility] de Phone Number [facility] [address] [place] [address] * HEPATITIS C ABS W/REFLEX RNA DETECTR (08/08/2024 3:00 AM EST) Pathologist [facility] Hep C Virus Ab Non-Reacti ve Non-Reacti ve [facility] 08/08/2024 3:00 AM EST 08/09/2024 1:17 PM EST Anthony Norton MD LAB [id number] SOLICITED RESULTS Final Result Performing Organization Address [facility] de Phone Number [facility] [address] [place] [address] * Hepatitis B Surface Ag w/Reflex Confirmation (08/08/2024 3:00 AM EST) Pathologist [facility] Hep B Surface Antigen Negative Negative [facility] 08/08/2024 3:00 AM EST 08/09/2024 1:17 PM EST Anthony Norton MD LAB BLOOD ORDERABLES Final Re sult Performing Organization Address [facility] de Phone Number [facility] [address] [place] [address] * Vitamin D 25 Hydroxy (08/08/2024 3:00 AM EST) Pathologist [facility] Vitamin D, 25-Hydroxy 38 30 - 100 ng/mL [facility] Comment: Status ? Adult ?? Pediatric Deficient: ? <20 ? <15 Insufficient: ??20-29 ?? 15-19 Sufficient: ?30-100 ??20-100 08/08/2024 3:00 AM EST 08/09/2024 1:17 PM EST us Anthony Norton MD LAB BLOOD ORDERABLES Final Re sult Performing Organization Address [facility] Co de Phone Number [facility] [address] [place] [address] * Uric Acid (08/08/2024 3:00 AM EST) Uric Acid 5.0 2.3 - 6.6 mg/dL [facility] 08/08/2024 3:00 AM EST 08/09/2024 1:17 PM EST Anthony Norton MD LAB BLOOD ORDERABLES Final Re sult Performing Organization Address [facility] de Phone Number [facility] [address] [place] [address] * (ABNORMAL) TSAT (08/08/2024 3:00 AM EST) Iron 34(L) 50 - 170 ug/dL [facility] Transferrin 126(L) 250 - 380 mg/dL [facility] TIBC 176(L) 211 - 406 ug/dL [facility] Iron Saturation (TSat) 19(L) 22 - 52 % [facility] 08/08/2024 3:00 AM EST 08/09/2024 1:17 PM EST Anthony Norton MD LAB BLOOD ORDERABLES Final Re sult Performing Organization Address [facility] de Phone Number [facility] [address] [place] [address] * (ABNORMAL) Protein, total (08/08/2024 3:00 AM EST) Total Protein 5.7(L) 6.4 - 8.9 g/dL [facility] 08/08/2024 3:00 AM EST 08/09/2024 1:17 PM EST Anthony Norton MD LAB BLOOD ORDERABLES Final Re sult Performing Organization Address [facility] de Phone Number [facility] [address] [place] [address] * Electrolyte panel (08/08/2024 3:00 AM EST) [...] ORDERABLES Final Re sult Performing Organization Address [facility] de Phone Number [facility] [address] [place] [address] * Magnesium (08/08/2024 3:00 AM EST) Pathologist [facility] Magnesium 1.9 1.9 - 2.7 mg/dL [facility] 08/08/2024 3:00 AM EST 08/09/2024 1:17 PM EST Anthony Norton MD LAB BLOOD ORDERABLES Final Re sult Performing Organization Address [facility] de Phone Number [facility] [address] [place] [address] * (ABNORMAL) Lipid panel (08/08/2024 3:00 AM [...] ORDERABLES Final Re sult Performing Organization Address City/[facility]/ZIP Co de Phone Number [facility] [address] [place] [address] * LIH (08/08/2024 3:00 AM EST) Lipemia Normal Normal [facility] Icterus Normal Normal [facility] Hemolysis Normal Normal [facility] 08/08/2024 3:00 AM EST 08/09/2024 1:17 PM EST us Anthony Norton MD LAB [id number] SOLICITED RESULTS Final Result Performing Organization Address [facility] Co de Phone Number [facility] [address] [place] [address] * Lactate dehydrogenase (08/08/2024 3:00 AM EST) LDH 198 120 - 246 U/L [facility] 08/08/2024 3:00 AM EST 08/09/2024 1:17 PM EST Anthony Norton MD LAB BLOOD ORDERABLES Final Re sult Performing Organization Address [facility] Co de Phone Number [facility] [address] [place] [address] * (ABNORMAL) Glucose, random (08/08/2024 3:00 AM EST) Glucose 124(H) 74 - 109 mg/dL [facility] 08/08/2024 3:00 AM EST 08/09/2024 1:17 PM EST Anthony Norton MD LAB BLOOD ORDERABLES Final Re sult Performing Organization Address [facility] Phone Number [facility] [address] [place] [address] * Bilirubin, total (08/08/2024 3:00 AM EST) Total Bilirubin 0.3 0.3 - 1.2 mg/dL [facility] 08/08/2024 3:00 AM EST 08/09/2024 1:17 PM EST Anthony Norton MD LAB BLOOD ORDERABLES Final Re sult Performing Organization Address [facility] de Phone Number [facility] [address] [place] [address] * (ABNORMAL) Creatinine, serum (08/08/2024 3:00 AM EST) Creatinine 4.24(H) 0.55 - 1.02 mg/dL [facility] 08/08/2024 3:00 AM EST 08/09/2024 1:17 PM EST Anthony Norton MD LAB BLOOD ORDERABLES Final Re sult Performing Organization Address [facility] de Phone Number [facility] [address] [place] [address] * AST (08/08/2024 3:00 AM EST) AST (SGOT) 11 <34 U/L [facility] 08/08/2024 3:00 AM EST 08/09/2024 1:17 PM EST Anthony Norton MD LAB BLOOD ORDERABLES Final Re sult Performing Organization Address [facility] de Phone Number [facility] [address] [place] [address] * (ABNORMAL) ALT (08/08/2024 3:00 AM EST) ALT (SGPT) 8(L) 10 - 49 U/L [facility] 08/08/2024 3:00 AM EST 08/09/2024 1:17 PM EST us Anthony Norton MD LAB BLOOD ORDERABLES Final Re sult Performing Organization Address [facility] Phone Number [facility] [address] [place] [address] * (ABNORMAL) Calcium Phosphorus Product, Adjusted (08/08/2024 [...] PM EST us Anthony Norton MD LAB [id number] SOLICITED RESULTS Final Result Performing Organization Address [facility] de Phone Number [facility] [address] [place] [address] * Alkaline phosphatase (08/08/2024 3:00 AM EST) Alkaline Phosphatase 76 46 - 116 U/L [facility] 08/08/2024 3:00 AM EST 08/09/2024 1:17 PM EST us Anthony Norton MD LAB BLOOD ORDERABLES Final Re sult Performing Organization Address [facility] de Phone Number [facility] [address] [place] [address] * (ABNORMAL) Hepatitis B Surface Antibody (08/08/2024 3:00 AM EST) Pathologist [facility] Hep B Surface Antibody <4(A) mIU/mL [facility] Comment: Interpretation: <10: No Immunity >=10: Probable Immunity 08/08/2024 3:00 AM EST 08/09/2024 1:17 PM EST us Anthony Norton MD LAB BLOOD ORDERABLES Final Re sult Performing Organization Address [facility] de Phone Number [facility] [address] [place] [address] * (ABNORMAL) Ferritin (08/08/2024 3:00 AM EST) Pathologist [facility] Ferritin 1,209(H) 10 - 291 ng/mL [facility] 08/08/2024 3:00 AM EST 08/09/2024 1:17 PM EST us Anthony Norton MD LAB BLOOD ORDERABLES Final Re sult Performing Organization Address [facility] de Phone Number [facility] [address] [place] [address] * (ABNORMAL) PTH, Intact (08/08/2024 3:00 AM EST) Pathologist [facility] PTH, Intact 144(L) 160 - 721 pg/mL [facility] Comment: Suggested (KDIGO) ESRD maintenance range is two to nine times the upper normal limit (80.1 pg/mL) for the laboratory. 08/08/2024 3:00 AM EST 08/09/2024 1:17 PM EST Anthony Norton MD LAB BLOOD ORDERABLES Final Re sult Performing Organization Address [facility] de Phone Number [facility] [address] [place] [address] * (ABNORMAL) Hemoglobin A1c (08/08/2024 3:00 AM [...] ORDERABLES Final Re sult Performing Organization Address [facility] de Phone Number [facility] [address] [place] [address] * (ABNORMAL) Kt/V Natural Log, URR (08/08/2024 [...] 1:17 PM EST Anthony Norton MD LAB [id number] SOLICITED RESULTS Final Result [facility] [address] [place] [address] * (ABNORMAL) CBC and Differential (08/08/2024 3:00 [...] Final Re sult [facility] [address] [place] [address] documented in this encounter Visit Diagnoses Diagnosis ANCA associated vasculitis (HCC) 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) 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 documented in this encounter Care Teams Private Pilot Relationship Specialty Start Date End Date Marie Vázquezmana [address] [place] [id number] PCP - General Internal Medicine 07/11/24 documented as of this encounter
--- OUTSIDE RECORDS SUMMARY | 2024-08-29 06:44 | XMS_ITS | Encounter Summary ---
Author Organization [facility] Address [address] [place] [address] Care Team Providers Care Systems Project Manager Name Role Phone Eloisa Vázquez DO Primary Care Provider [phone] Reason for Visit * Reason Comments Fall * Auth/Cert Specialty Diagnoses / Procedures Referred By Contac t Referred To Contact Diagnoses Acute encephalopathy Procedures . Wayne Donahue MD [address] [place] [phone] Phone: tel: fax: [facility] Emergency [address] [place] [address] Phone: tel: Referral ID Status Reason Start Date Expiration Date Visits Re quested Visits Authorized [id number] 1 1 Encounter Details Date Type Department Care Team (Late st Contact Info) Description 07/08/2024 10:31 AM EST - 08/06/2024 1:09 PM EST Hospital Encounter [facility] Urology Unit [address] [place] [address] jJ Wolfe MD [address] [place] [address] Wayne Donahue MD [address] [place] [address] Maria Alejandra Melendez MD [address] [place] [address] Kwesi Guido MD [address] [place] [phone] Lencho Stuart MD [address] [place] [address] Jonny Mathur MD [address] [place] [phone] Steve Cruz MD [address] [place] [address] Anemia, unspecified type (Primary Dx); Hyponatremia; Acute on chronic renal insufficiency; Acute encephalopathy; Bilateral leg edema; Pulmonary nodule Discharge Disposition: Shelter Facility Social History Tobacco Use Types Packs/Day [...] of Assessment Author No 07/08/2024 3:24 PM Lillian Pierre RN * Because of a physical, [...] from the original note were not included. [place] DISCHARGE SUMMARY Patient Information Cayuga A Ben : 1945 [79 y.o.] Admitting Provider [...] was found down on the ground by [facility]. She was unsure the detailsof how [...] will be transferred to the care of [facility] staff for further management of their acute encephalopathy, fall. Hospital course Patient is 79 years old female with past medical history significant for type 2 diabetes, hypertension, chronic kidney disease stage IV, iron deficiency anemia, dyslipidemia, lung nodule brought to the [facility] after wellness check was called to police by her daughter. Patient was foundon the ground unable to get up and was confused. Patient admitted to medical floors for further management of chronic kidney disease, metabolic encephalopathy. # Acute on chronic kidney injury, crescentic glomerulonephritis requiring hemodialysis. -Patient is on hemodialysis Thursday. On prednisone, Bactrim every Thursday. Per resource technician patient's kidney biopsy consistent with crescentic glomerulonephritis. Rituximab given on 07/28/2024. Next dose in 2 weeks. Patient is being followed by resource technician for hemodia lysis. Upon DC continue oral [...] [address] [facility] [address] Schedule an appointment as soon as possible for a visit in 3 day(s) for transition of care visit, If symptoms worsen, As needed Chencho Wayne MD [address] [place] [address] [facility] [address] Schedule an appointment as soon as possible for a visit in 1 week(s) for kidney failure management [address] [address] Discharge Procedure Orders Discharge Diet: [...] from the original note were not included. [place] DISCHARGE SUMMARY Patient Information Ana Contreras : [...] was found down on the ground by [facility]. She was unsure the detailsof how [...] will be transferred to the care of [facility] staff for further management of their acute encephalopathy, fall. Hospital course Patient is 79 years old female with past medical history significant for type 2 diabetes, hypertension, chronic kidney disease stage IV, iron deficiency anemia, dyslipidemia, lung nodule brought to the [facility] after wellness check was called to police by her daughter. Patient was foundon the ground unable to get up and was confused. Patient admitted to medical floors for further management of chronic kidney disease, metabolic encephalopathy. # Acute on chronic kidney injury, crescentic glomerulonephritis requiring hemodialysis. -Patient is on hemodialysis Thursday. On prednisone, Bactrim every Thursday. Per resource technician patient's kidney biopsy consistent with crescentic glomerulonephritis. Rituximab given on 07/28/2024. Next dose in 2 weeks. Patient is being followed by resource technician for hemodia lysis. Upon DC continue oral [...] Instructions and Recommendations DO [address] [facility] [address] Schedule an appointment as soon as possible for a visit in 3 day(s) for transition of care visit, If symptoms worsen, As needed Chencho Wayne MD [address] [facility] [phone] Schedule an appointment as soon as possible for a visit in 1 week(s) for kidney failure management [address] [address] Discharge Procedure Orders Discharge Diet: [...] through Care Everywhere. * Diabetes: Renal Diet (Citizen [place]) documented in this encounter Medications at Time [...] Disposition Code Departure Means Destination Comment s Shelter Facility documented in this encounter Progress Notes * Jacquelin Davidson RN - 08/06/2024 1:04 PM EST Report given to ems, to transport to [facility]. * Chencho Wayne MD - 08/06/2024 [...] 0722 Initial Transition Plan Initial Transition Plan Shelter Facility ([facility] Transportation Transportation at discharge [facility] providing transportation [place] What day is the transport expected? 08/06/24 What time is the transport expected? 1300 Final Discharge Disposition Shelter Facility * Katina Machuca RN - 08/06/2024 [...] was found down on the ground by [facility]. She was unsure the detailsof how [...] diarrhea, leg swelling. She is legally blind soshe is unaware if her stool was bloody. [...] will be transferred to the care of [facility] staff for further management of their acute encephalopathy, fall. Hospital course Patient is 79 years old female with past medical history significant for type 2 diabetes, hypertension, chronic kidney disease stage IV, iron deficiency anemia, dyslipidemia, lung nodule brought to the [facility] after wellness check was called to police by her daughter. Patient was foundon the ground unable to get up and was confused. Patient admitted to medical floors for further management of chronic kidney disease, metabolic encephalopathy. # Acute on chronic kidney injury, crescentic glomerulonephritis requiring hemodialysis. -Patient is on hemodialysis Thursday. On prednisone, Bactrim every Thursday. Per resource technician patient's kidney biopsy consistent with crescentic glomerulonephritis. Rituximab given on 07/28/2024. Next dose in 2 weeks. Patient is being followed by resource technician for hemodia lysis. Upon DC continue oral [...] 1337 Initial Transition Plan Initial Transition Plan Shelter Facility ([facility] Transportation Transportation at discharge [facility] providing transportation [place] What day is the transport expected? 08/05/24 What time is the transport expected? 1700 Final Discharge Disposition Inpatient Rehab Family in agreement w MARYSE plan. * Nelli Schmidt OT - 08/05/2024 12:30 PM EST Therapy session was attempted for Cayuganorberto Contreras by Nelli Schmidt OT on 08/05/2024. [...] Ordered 08/05/24 0001 Adult NPO diet Location: [facility]; Diet: NPO- Except for Medications Diet effective midnight Question Answer Comment Location [facility] Diet NPO- Except for Medications 08/04/24 0838 07/11/24 1133 Dietary nutrition supplements Two times daily (BID); [facility]; Diabetic Supplement Continuous Question Answer Comment Frequency Two times daily (BID) Location [facility] Supplements Diabetic Supplement 07/11/24 1132 History [...] or fat depletion Skin: Skin intact per development coach Nutrition Diagnosis: Code Type: None Identified Status: [facility] DVT, lower extremity (CMS/HCC) LEFT LEG Family [...] CKD 3 S/p Rituximab infusion (700 mg) 2/1/25 S/p IV pulse steroid on oral prednisone [...] weeks and will be tapered by the resource technician Continue PPI in the outpatient setting if patient is on prednisone Continue Bactrim DS in the outpatient setting thrice weekly (--) as patient is immunosuppressed Lung mass biopsy with Dr. Montez today s/p transfusion yesterday Outpatient HD arranged at [facility] m-w-f 1st shift [phone] on hold since July 21. I have given orders for the patient to start on Thursday Patient for discharge to [facility] Discussed with medical team. Patient to get transfused today From renal standpoint patient can be discharged today or on Thursday The outpatient facility needs to arrange for rituximab infusion on August 11 or at [facility] outpatient infusion-they can touch base with the renal MD [facility] for that shift for orders and dosage Discussed with the medical team/outpatient dialysis nursing staff and case management specialist history Chencho Wayne MD * Prisca Goldman PT - 08/05/2024 7:26 AM EST Therapy session was attempted for Cayuganorberto Contreras by Prisca Goldman PT on 08/05/2024. [...] a 79 y.o. female : 1945 MR#: [id number] SUBJECTIVE Subjective Patient seen by the bedside [...] of fentanyl administered during the procedure. Scanner: Solvesting [address] Dose reduction technique: AEC [...] Signed Date: 07/22/2024 17:00 ET Workstation ID: [id number] Transcribed By: Self Edit Transcribed Date: 07/22/2024 16:58 ET ASSESSMENT & PLAN Patient is 79 years old female with past medical history significant for type 2 diabetes, hypertension, chronic kidney disease stage IV, iron deficiency anemia, dyslipidemia, lung nodule brought to the [facility] after wellness check was called to police by her daughter. Patient was foundon the ground unable to get up and was confused. Patient admitted to medical floors for further management of chronic kidney disease, metabolic encephalopathy. # Acute on chronic kidney injury, crescentic glomerulonephritis requiring hemodialysis. -Patient is on hemodialysis Thursday. On prednisone, Bactrim every Thursday. Per resource technician patient's kidney biopsy consistent with crescentic glomerulonephritis. Rituximab given on 07/28/2024. Next dose in 2 weeks. Patient is being followed by resource technician for hemodia lysis. # Right upper lobe [...] weeks and will be tapered by the resource technician Continue PPI in the outpatient setting if patient is on prednisone Continue Bactrim DS in the outpatient setting thrice weekly (--) as patient is immunosuppressed Lung mass biopsy with Dr. Montez tomorrow Renal diet Outpatient HD arranged at [facility] m-w-f 1st shift [phone] on hold since July 21. I have given orders for the patient to start on Thursday Patient for discharge to [facility] Discussed with medical team. Patient to get transfused today Will follow chuck shirley team From renal standpoint patient can be discharged tomorrow or on Thursday The outpatient facility needs to arrange for rituximab infusion on August 11 or at [facility] outpatient infusion-they can touch base with the renal MD covering for [employer] for that shift for orders and dosage Discussed with the medical team/outpatient dialysis nursing staff and case management specialist Chencho Wayne MD * Isidra Florence - 08/04/2024 9:38 AM EST [facility] Physical Therapy Treatment PT Discharge Recommendations: Inpatient rehab facility placement, half-way facility placement Equipment Recommended: rolling walker Staff Recommendations for safe patient handling: min/modA transfers/bed mob Precautions Medical Precautions: Fall Risk Safety Interventions: Call chavarria within reach, ID band on, Bed alarm RUE Weight Bearing Status: Full LUE Weight Bearing Status: Full RLE Weight Bearing Status: Full LLE Weight Bearing Status: Full History of Present Illness: Patient is a 79 y.o. female admitted to [facility] on 07/08/2024 with: Patient Active Problem List Diagnosis Hypertension Hyperlipidemia History of cancer of unknown primary site CKD (chronic kidney disease) stage 4, GFR 15-29 ml/min ([facility]) Iron deficiency anemia Impaired renal function Type 2 diabetes mellitus without complication, without long-term current use of insulin ([facility]) Lung mass Pulmonary nodule Fall prevention education [...] week PT Discharge Recommendations Inpatient rehab facility placement;half-way facility placement Equipment Recommended rolling walker PT [...] PT Discharge Recommendations: Inpatient rehab facility placement, half-way facility placement Equipment Recommended: rolling walker Barriers to Discharge: dizziness, impending kidney biopsy today PT - Evaluation Status: Complete PT - OK to Discharge: Yes Physical Therapy Goals/Education Pt will ambulate 25 ft with walker and CG. Education Documentation Body Mechanics, taught by Isidra Florence at 08/04/2024 9:37 AM. Learner: Patient Readiness: Acceptance Method: Demonstration, Explanation Response: Needs Reinforcement Precautions, taught by Isidra Flroence at 08/04/2024 9:37 AM. Learner: Patient Readiness: [...] RN - 08/04/2024 9:17 AM EST This telegraphic typewriter repairer received a call from Beth at [facility] where they have had a dialysis STR bed open and are accepting and going for insurance auth. ICC notified provider and will follow for transfer once insurance auth obtained. * Nelli Schmidt, OT - 08/04/2024 8:30 AM EST [facility] Occupational Therapy Treatment Note DATE: July TIME IN: 0830 TIME OUT: 0900 Pt: Ana Contreras 561/[id number] DISCHARGE RECS: Inpatient rehab facility placement, half-way facility placement EQUIPMENT RECS: Walker-rolling SAFE PT [...] Complete OT Discharge Recommendations Inpatient rehab facility placement;half-way facility placement Equipment Recommended Walker-rolling ADDITIONAL COMMENTS: [...] up Transition Plan Back up Transition plan Shelter Facility Anticipated Discharge Needs Discipline following for SNF placement Wood Model Maker DANITZA: 08/06 Barriers: Accepting SNF w HD, Bronch w lung mass bx re-scheduled 08/05, ability to stand/pivot for family to transport to HD. Plan: ACR vs SNF pending accepting facility with HD and or ability to transport to [facility]. [facility] can only continue to hold OPT HD slot until 08/05. ICC s/w family and updated on [facility] options. Bill [facility] Wood Model Maker, , called [facility] and will attempt to assist with [...] a 79 y.o. female : 1945 MR#: [id number] SUBJECTIVE Subjective Patient seen by the bedside [...] of fentanyl administered during the procedure. Scanner: Solvesting [address] Dose reduction technique: AEC [...] Signed Date: 07/22/2024 17:00 ET Workstation ID: [id number] Transcribed By: Self Edit Transcribed Date: 07/22/2024 16:58 ET ASSESSMENT & PLAN Patient is 79 years old female with past medical history significant for type 2 diabetes, hypertension, chronic kidney disease stage IV, iron deficiency anemia, dyslipidemia, lung nodule brought to the [facility] after wellness check was called to police by her daughter. Patient was foundon the ground unable to get up and was confused. Patient admitted to medical floors for further management of chronic kidney disease, metabolic encephalopathy. # Acute on chronic kidney injury, crescentic glomerulonephritis requiring hemodialysis. -Patient is on hemodialysis Thursday. On prednisone, Bactrim every Thursday. Per resource technician patient's kidney biopsy consistent with crescentic glomerulonephritis. Rituximab given on 07/28/2024. Next dose in 2 weeks. Patient is being followed by resource technician for hemodia lysis. # Right upper lobe [...] arranged at [facility] m--f 1st shift [phone] on hold since July 21. We need to know before Thursday if he can give away the chair and patient disposition Consider Kana Fern[facility]dez or Maribeth if going to [facility] Discussed with medical team. Patient to get transfused today Will follow chuck w team If patient discharged before August 11 the outpatient facility needs to arrange for rituximab infusion on August 11 or Chencho Wayne MD * Nelli Schmidt OT - 08/03/2024 9:15 AM EST Therapy session was attempted for [place] A Contreras by Nelli Schmidt OT on [...] Isidra Florence - 08/02/2024 2:31 PM EST [facility] Physical Therapy Treatment PT Discharge Recommendations: Inpatient rehab facility placement, half-way facility placement Equipment Recommended: rolling walker Staff [...] is a 79 y.o. female admitted to [facility] on 07/08/2024 with: Patient Active Problem List Diagnosis Hypertension Hyperlipidemia History of cancer of unknown primary site CKD (chronic kidney disease) stage 4, GFR 15-29 ml/min ([facility]) Iron deficiency anemia Impaired renal function Type 2 diabetes mellitus without complication, without long-term current use of insulin ([facility]) Lung mass Pulmonary [...] week PT Discharge Recommendations Inpatient rehab facility placement;half-way facility placement Equipment Recommended rolling walker PT [...] PT Discharge Recommendations: Inpatient rehab facility placement, half-way facility placement Equipment Recommended: rolling walker Barriers [...] a 79 y.o. female : 1945 MR#: [id number] SUBJECTIVE Subjective Patient seen by the bedside [...] of fentanyl administered during the procedure. Scanner: Solvesting [address] Dose reduction technique: AEC [...] Signed Date: 07/22/2024 17:00 ET Workstation ID: [id number] Transcribed By: Self Edit Transcribed Date: 07/22/2024 16:58 ET ASSESSMENT & PLAN Patient is 79 years old female with past medical history significant for type 2 diabetes, hypertension, chronic kidney disease stage IV, iron deficiency anemia, dyslipidemia, lung nodule brought to the [facility] after wellness check was called to police by her daughter. Patient was foundon the ground unable to get up and was confused. Patient admitted to medical floors for further management of chronic kidney disease, metabolic encephalopathy. # Acute on chronic kidney injury, crescentic glomerulonephritis requiring hemodialysis. -Patient is on hemodialysis Thursday. On prednisone, Bactrim every Thursday. Per resource technician patient's kidney biopsy consistent with crescentic glomerulonephritis. Rituximab given on 07/28/2024. Next dose in 2 weeks. Patient is being followed by resource technician for hemodia lysis. # Right upper lobe [...] Schmidt OT - 08/02/2024 1:35 PM EST [facility] Occupational Therapy Treatment Note DATE: Friday August 02, 2024 TIME IN: 1335 TIME OUT: 1405 Pt: Ana Contreras 561/[id number] DISCHARGE RECS: Inpatient rehab facility placement, half-way facility placement EQUIPMENT RECS: Walker-rolling SAFE PT [...] Complete OT Discharge Recommendations Inpatient rehab facility placement;half-way facility placement Equipment Recommended Walker-rolling ADDITIONAL COMMENTS: [...] Montez Renal diet Outpatient HD arranged at [facility] 1st shift [phone]) Consider Kana Jolene or Maribeth if going to SNF Discussed with medical team. Patient to get transfused today Will follow [facility] team Chencho Wayne MD * Katina [...] Montez Renal diet Outpatient HD arranged at [facility] 1st shift [phone]) Consider Kana Fernández or Maribeth if going to SNF Will follow [facility] w team Anthony Norton MD * Steve Cruz MD - 08/01/2024 4:42 PM EST Images from the original note were not included. SONYA PROGRESS NOTE Date: 08/01/2024 Author: Steve Cruz MD Patient ID: Ana Contreras is a 79 y.o. female : 1945 MR#: [id number] SUBJECTIVE Subjective Patient seen by the bedside [...] of fentanyl administered during the procedure. Scanner: Solvesting [address] Dose reduction technique: AEC [...] Signed Date: 07/22/2024 17:00 ET Workstation ID: [id number] Transcribed By: Self Edit Transcribed Date: 07/22/2024 16:58 ET ASSESSMENT & PLAN Patient is 79 years old female with past medical history significant for type 2 diabetes, hypertension, chronic kidney disease stage IV, iron deficiency anemia, dyslipidemia, lung nodule brought to the [facility] after wellness check was called to police by her daughter. Patient was foundon the ground unable to get up and was confused. Patient admitted to medical floors for further management of chronic kidney disease, metabolic encephalopathy. # Acute on chronic kidney injury, crescentic glomerulonephritis requiring hemodialysis. -Patient is on hemodialysis Thursday. On prednisone, Bactrim every Thursday. Per resource technician patient's kidney biopsy consistent with crescentic glomerulonephritis. Rituximab given on 07/28/2024. Next dose in 2 weeks. Patient is being followed by resource technician for hemodia lysis. # Right upper lobe [...] Camara, RADHIKA - 08/01/2024 11:00 AM EST [place], [place] Acute Care PT TREATMENT 08/01/2024 Patient Information Ana Chaparro Ben 1945 79 y.o. Ambulation: Walking Assistance: Minimum assistance Device: Rolling walker Distance Ambulated (ft): (5 steps to transfer bed to commode + 3 to 4 steps forward and 3 to 4 steps back with RW) PLOF: Level of [place]: Independent with mobility and functional transfers Lives [...] Call chavarira within reach, ID band on, Chair alarm [...] Schmidt OT - 08/01/2024 10:50 AM EST [facility] Occupational Therapy Treatment Note DATE: Thursday August 01, 2024 TIME IN: 1050 TIME OUT: 1125 Pt: Ana Contreras 561/561-2 DISCHARGE RECS: half-way facility placement, Inpatient rehab facility placement EQUIPMENT [...] - Evaluation Status Complete OT Discharge Recommendations half-way facility placement;Inpatient rehab facility placement Equipment Recommended [...] onward) Start Ordered 07/27/[address] [facility]; General; Renal- Chronic Kidney Disease; Self-Select Meals Diet effective now Question Answer Comment Location [facility] Diet Type (req) General General Diet Renal- Chronic Kidney Disease Is the patient able to participate in meal ordering? Self-Select Meals 07/27/24 1332 07/11/24 1133 Dietary nutrition supplements Two times daily (BID); [facility]; Diabetic Supplement Continuous Question Answer Comment Frequency Two times daily (BID) Location [facility] Supplements Diabetic Supplement 07/11/24 1132 History [...] at home. No noted food allergies. Appetite R&D ENGINEER: Poor Intake R&D ENGINEER: Decreased Weight History: Wt Readings from Last [...] reports improved PO intake since last visit. ENVIRONMENTAL SERVICES WORKER at bedside who confirmed she has been [...] or fat depletion Skin: Skin intact per development coach Nutrition Diagnosis: Code Type: None Identified Status: [...] M, RN Outcome: Not Progressing Goal: Maintains static [...] static sitting balance without upper extremity support 08/01/2024320 by Katina Altamirano RN Outcome: Not Progressing 08/01/2024252 by Katina Altamirano RN Outcome: Not Progressing Goal: Maintains dynamic sitting balance with upper extremity support 08/01/2024320 by Katina Altamirano RN Outcome: Not Progressing 08/01/2024252 by Katina Altamirano RN Outcome: Not Progressing Goal: Maintains dynamic sitting balance without upper extremity support 08/01/2024320 by [...] of 3 total hip precautions during mobility 08/01/2024320 by Katina Altamirano RN Outcome: Not Progressing 08/01/2024252 by Katina Altamirano RN Outcome: Not Progressing Goal: Patient will ambulate community distance 08/01/2024320 by Katina Altamirano RN Outcome: Not Progressing 08/01/2024252 by Katina Altamirano RN Outcome: Not Progressing Goal: Patient will propel wheelchair household distances 08/01/2024320 by Katina Altamirano RN Outcome: Not Progressing 08/01/2024252 by Katina Altamirano RN Outcome: Not Progressing Goal: Patient will ambulate household distance 08/01/2024320 by Katina Altamirano, RN Outcome: Not [...] Goal: Patient will roll 08/01/2024320 by Katina Altamirano RN Outcome: Not [...] a 79 y.o. female : 1945 MR#: [id number] SUBJECTIVE Follow up:metabolic encephalopathy, renal failure requiring [...] of fentanyl administered during the procedure. Scanner: Solvesting [address] Dose reduction technique: AEC [...] Signed Date: 07/22/2024 17:00 ET Workstation ID: [id number] Transcribed By: Self Edit Transcribed Date: 07/22/2024 16:58 ET ASSESSMENT & PLAN Patient is an 79 woman with HTN, DM2, CKD 4, iron deficiency anemia, hyperlipidemia, and recent diagnosis of lung nodule with planned bronchoscopy and EBUS , she was brought to the [facility] ER on 07/08 after wellness check was called to police by her daughter. She was allegedly found on the ground unableto get up and appeared confused While in ER, patient was afebrile and hemodynamically stable without hypoxia. Subsequent work up: leukocytosis, hemoglobin 7.3 most recent hemoglobin 7.4 on 06/17/2024, RENE was noted with BUN 63 andcreatinine 4(most recent creatinine 2 on 06/17/2024), CK [...] tomorrow Patient will need SNF with hemodialysis capability([facility] vs [facility]). [facility] already aware and referrals placed. * [...] Montez Renal diet Outpatient HD arranged at [facility] -- 1st shift [phone]) Consider [facility] or [facility] if going to [facility] Mindy Katz MD Cosigned by Miguel Quiles MD at 08/02/2024 2:08 PM EST * Jonny Mathur MD - 07/30/2024 12:28 PM EST Images from the original note were not included. SONYA PROGRESS NOTE Date: 07/30/2024 Author: Jonny Mathur MD Patient ID: Ana Contreras is a 79 y.o. female : 1945 MR#: [id number] SUBJECTIVE Follow up:metabolic encephalopathy, renal failure w/renal [...] of fentanyl administered during the procedure. Scanner: Solvesting [address] Dose reduction technique: AEC [...] Signed Date: 07/22/2024 17:00 ET Workstation ID: [id number] Transcribed By: Self Edit Transcribed Date: 07/22/2024 [...] a 79 y.o. female : 1945 MR#: [id number] SUBJECTIVE Follow up:metabolic encephalopathy, renal failure requiring [...] of fentanyl administered during the procedure. Scanner: Solvesting [address] Dose reduction technique: AEC [...] Signed Date: 07/22/2024 17:00 ET Workstation ID: [id number] Transcribed By: Self Edit Transcribed Date: 07/22/2024 [...] CHLORIDE mmol/L 95* 95* 97 CO2 mmol/L 29 28 Phosphorus Date Value Ref Range [...] Montez Renal diet Outpatient HD arranged at [facility] - 1st shift [phone]) Consider [facility] or [facility] if going [...] a 79 y.o. female : 1945 MR#: [id number] SUBJECTIVE Follow up:metabolic encephalopathy, renal failure requiring [...] of fentanyl administered during the procedure. Scanner: Solvesting [address] Dose reduction technique: AEC [...] Fela Palomo Reviewed and Electronically Signed By: Flea Palomo Signed Date: 07/22/2024 17:00 ET Workstation ID: [id number] Transcribed By: Self Edit Transcribed Date: 07/22/2024 [...] Montez Renal diet Outpatient HD arranged at [facility] -w-f 1st shift [phone]) Consider [facility] or [facility] if going to [facility] Miguel Quiles MD * Jonny Mathur MD - 07/27/2024 7:02 PM EST Images from the original note were not included. SONYA PROGRESS NOTE Date: 07/27/2024 Author: Jonny Mathur MD Patient ID: Ana Contreras is a 79 y.o. female : 1945 MR#: [id number] SUBJECTIVE Follow up:metabolic encephalopathy, renal failure requiring [...] Pulse: 74 74 89 85 Resp: 16 18 Temp: 36.4 ??C (97.5 ??F) 36.1 [...] of fentanyl administered during the procedure. Scanner: Solvesting [address] Dose reduction technique: AEC [...] Signed Date: 07/22/2024 17:00 ET Workstation ID: [id number] Transcribed By: Self Edit Transcribed Date: 07/22/2024 [...] Ordered 07/27/24 0001 Adult NPO diet Location: [facility]; Diet: NPO- Except for Medications Diet effective midnight Question Answer Comment Location [facility] Diet NPO- Except for Medications 07/26/24 1755 07/11/24 1133 Dietary nutrition supplements Two times daily (BID); [facility]; Diabetic Supplement Continuous Question Answer Comment Frequency Two times daily (BID) Location [facility] Supplements Diabetic Supplement 07/11/24 1132 History of presenting illness: Patient is a 79 y.o. female with a history of Past Medical History: Diagnosis Date Anemia Arthritis Blindness Decreased vision 11/29/2014 DX:Decreased vision Diabetes mellitus, type 2 ([facility]) 02/14/2014 DX:Diabetes mellitus, type 2 (HCC) DVT, [...] at home. No noted food allergies. Appetite R&D ENGINEER: Poor Intake R&D ENGINEER: Decreased Weight History: Wt Readings from Last [...] lung biopsy this morning. Currently NPO. Per development coach, pt consuming 25-50% of meals since last [...] or fat depletion Skin: Skin intact per development coach Nutrition Diagnosis: Code Type: None Identified Status: [...] mmol/L 93* 94* 94* CO2 mmol/L 30 Phosphorus Date Value Ref Range Status [...] Montez Renal diet Outpatient HD arranged at [facility] m-w-f 1st shift [phone]) Consider [facility]dez or Marib[facility] if going to [facility] Miguel Quiles MD * Katina Machuca RN [...] a 79 y.o. female : 1945 MR#: [id number] SUBJECTIVE Follow up:metabolic encephalopathy, renal failure requiring [...] of fentanyl administered during the procedure. Scanner: Solvesting [address] Dose reduction technique: AEC [...] Signed Date: 07/22/2024 17:00 ET Workstation ID: [id number] Transcribed By: Self Edit Transcribed Date: 07/22/2024 [...] ml ofdark red blood noted in the bucket, notified. Pt also had a soft brown BM. CBC/BMP scheduled fortomorrow morning. * Tarsha Corea RN - 07/26/2024 3:07 PM EST DANITZA: 07/28 Barriers: Bronch w lung mass bx 07/27, Renal Bx 07/22 w/ path pending, new HD, trend labs, H/H, heparin drip-LLE DVT, repeat PT eval Plan: [facility] considering pending bed and HD slot. [facility] accepting w family to provide HD transportation support if Pt can get in/out of private vehicle. * Nithya Constantino, PT - 07/26/2024 8:45 AM EST Patient: Ana Contreras Age: 79 y.o. Sex: female Acute encephalopathy [facility] Physical Therapy RE-Evaluation Ambulation: Walking Assistance: [...] Distance Ambulated (ft): 3 PLOF: Level of [place]: Independent with mobility and functional transfers Lives With: Alone Type of Home: House Home Adaptive Equipment: Cane, Rollator Home Layout: One level Home Access: Stairs to enter without rails DME Needs: r walker PT Discharge Recommendation: Inpatient rehab facility placement, half-way facility placement Reason for current recommendation based [...] Shower/Tub Tub/shower unit Prior Function Level of [place] Independent with mobility and functional transfers Ambulation [...] week PT Discharge Recommendations Inpatient rehab facility placement;half-way facility placement Equipment Recommended r walker PT [...] Montez Renal diet Outpatient HD arranged at [facility] m-w-f 1st shift [phone]) Consider [facility] or [facility] if going to [facility] Miguel Quiles MD * Katina Machuca RN [...] a 79 y.o. female : 1945 MR#: [id number] SUBJECTIVE Follow up:metabolic encephalopathy, renal failure requiring [...] of fentanyl administered during the procedure. Scanner: Solvesting [address] Dose reduction technique: AEC [...] Signed Date: 07/22/2024 17:00 ET Workstation ID: [id number] Transcribed By: Self Edit Transcribed Date: 07/22/2024 [...] Left copyat table pt room. * Nithya Cnostantino PT - 07/25/2024 11:47 AM EST Physical [...] Montez Renal diet Outpatient HD arranged at [facility] -- 1st shift [phone]) Consider [facility] or [facility] if going to [facility] Miguel Quiles MD * Tarsha Corea RN - 07/25/2024 8:45 AM EST DANITZA: 07/28 Barriers: Renal Bx 07/22 w/ path pending, new HD, trend labs, H/H, heparin drip- LLE DVT, repeat Pt eval, lung mass biopsy 07/27 Plan: 1st choice - [facility] or [place] [facility]t [facility] to provide HD [facility] [...] negative. No signs of bleeding currently ICK * Larisa Al RN - 07/24/2024 4:13 PM EST 07/24/24 1613 Back up Transition Plan Back up Transition plan Shelter Facility Barriers to discharge: Renal Bx 07/22 path pending, new HD, trend labs, H/H, heparin drip-LLE DVT, repeat Pt eval, lung mass biopsy 07/27 Plan: [facility] accepting w family to provide HD transportation support. ICK Stuart MD - 07/24/2024 1:11 PM EST Images from the original note were not included. SONYA PROGRESS NOTE Date: 07/24/2024 Author: Lencho Stuart MD Patient ID: Ana Contreras is a 79 y.o. female : 1945 MR#: [id number] SUBJECTIVE CC: Follow-up renal failure No complaints. [...] bed, anticoagulation/lung mass biopsy HCP: Daughter, Dennise. [phone] ICK Golden MD - 07/24/2024 8:59 AM [...] 18 Units/kg/hr, Last Rate: 21 Units/kg/hr (07/23/24 8020) OBJECTIVE Vital signs in last 24 hours: [...] a 79 y.o. female : 1945 MR#: [id number] SUBJECTIVE CC: Follow-up renal failure Post procedure [...] bed. DC likely next week. HCP: DaughterDennise. [phone] * Nelli Schmidt OT - 07/23/2024 9:00 [...] from the original note were not included. [place] PROGRESS NOTE Date: 07/22/2024 Author: Lencho Stuart MD Patient ID: Ana Contreras is a 79 y.o. female : 1945 MR#: [id number] SUBJECTIVE CC: Follow-up renal failure Seen in [...] bed. DC likely next week. HCP: DaughterDennise. [phone] * Kayleigh Laguna RD - 07/22/2024 12:44 [...] Ordered 07/22/24 0001 Adult NPO diet Location: [facility]; Diet: NPO- Except for Medications Diet effective midnight Question Answer Comment Location [facility] Diet NPO- Except for Medications 07/21/24 1326 07/11/24 1133 Dietary nutrition supplements Two times daily (BID); [facility]; Diabetic Supplement Continuous Question Answer Comment Frequency Two times daily (BID) Location [facility] Supplements Diabetic Supplement 07/11/24 1132 Food/Nutrition History: Previous Diet / Nutrition Education / Counseling: Per MST screeening, pt reports weight loss of 24-33 lb in past 3 months, and reports poor PO intake. Pt living by herself prior to admission, but hassupport from children. History of DM- takes glipizide at home. No noted food allergies. Appetite R&D ENGINEER: Poor Intake R&D ENGINEER: Decreased Weight History: Wt Readings from Last [...] or fat depletion Skin: Skin intact per development coach Nutrition Diagnosis: Code Type: None Identified Status: [...] bx is CA, Pt may transition to RICE CLEANING MACHINE TENDER per family. Per IPR, Pulmonary IR stated possible intervention 07/27. Plan: STR pending accepting facility w HD support. * Nithya Constantino, PT - 07/22/2024 8:30 AM EST Patient: Ana Contreras Age: 79 y.o. Sex: female Acute encephalopathy [facility] Physical Therapy Treatment Ambulation: Walking Assistance: Minimum assistance Walking Deficit: Steadying, Verbal cueing, Supervision/safety awareness, Increased time to complete, Assist for trunk control, Assist for weight shifting, Limited endurance, Impaired balance, LE weakness Device: Rolling walker Distance Ambulated (ft): 2 PLOF: Level of [place]: Independent with mobility and functional transfers Lives [...] Activity 3 sit to stand transfers at [facility], requiring only min assist for lift off [...] Plan PT Discharge Recommendations Inpatient rehab facility placement;half-way facility placement Equipment Recommended r walker Barriers [...] request to regional HD placement) Referral to [facility] made as patient lives in the [...] a 79 y.o. female : 1945 MR#: [id number] SUBJECTIVE CC: Follow-up renal failure Seen during [...] DC likely next week. HCP: Daughter, Dennise. [phone] * Louis Welch RN - 07/21/2024 12:55 [...] AM EST Problem: Falls: Fall Risk ([facility]ult [facility]) Goal: (Goal) Patient will experience maximum [...] a 79 y.o. female : 1945 MR#: [id number] SUBJECTIVE CC: Follow-up renal failure Seen in [...] renal biopsy, pending SNF bed. HCP: DaughterDennise. [phone] * Miguel Quiles MD - 07/20/2024 12:09 [...] Age: 79 y.o. Sex: female Acute encephalopathy [facility] Physical Therapy Treatment Ambulation: Walking Assistance: Moderate assistance Device: Rolling walker Distance Ambulated (ft): 2 PLOF: Level of [place]: Independent with mobility and functional transfers Lives [...] ble's) Therapeutic Activity 2 sit-stand transfers at [facility], mod assist to adjust posture, hand and foot posture, and to facilitate forward trunk over ISABELLE. Pt stood, supported at [facility] with mod assist, limited by ble weakness, [...] Inpatient rehab facility placement Equipment Recommended niharika PATTERSON Acute Care Plan: Treatment/Interventions: Gait training, Endurance [...] a 79 y.o. female : 1945 MR#: [id number] SUBJECTIVE CC: Follow-up RENE, DVT and encephalopathy [...] 1-2 days. Barrier: Heparin, anemia HCP: DaughterDennise. [phone] * Jose Lujan RN - 07/19/2024 11:20 [...] for the MARTINEZ with improvement post medical laboratory technologist. Pt's floorRN aware of leg pain and [...] request to regional HD placement) Referral to [facility] made as patient lives in the area Miguel Quiles MD * Nelli Schmidt OT - 07/19/2024 9:15 AM EST Therapy session was attempted for Ana Chaparro Contreras by Nelli Schmidt OT on 07/19/2024. [...] Outcome: Not Progressing 07/19/2024 0238 by Katina Trores RN Outcome: Not Progressing Goal: Patient will [...] demonstrate kitchen mobility 07/19/2024 0246 by Katina S, RN Outcome: [...] 0238 by Katina Torres, RN Outcome: Progressing Goal: Free from fall [...] Outcome: Not Progressing 07/19/2024 0238 by Katina S, RN Outcome: Not Progressing Goal: Patient will [...] to and from sit to supine 07/19/2024 024 by Katina Torres RN Outcome: Adequate for Discharge 07/19/2024 024 by Katina Torres RN Outcome: Progressing 07/19/2024 0238 by Katina Torres RN Outcome: Progressing Goal: Patient will perform bed mobility 07/19/2024 024 by Katina Torres RN Outcome: Adequate for Discharge 07/19/2024 024 by Katina Torres RN Outcome: Progressing Goal: Patient will roll 07/19/2024 0246 by Katina Torres, RN Outcome: [...] manageable through therapies 07/19/2024 024 by Katina Torres, RN Outcome: [...] Outcome: Adequate for Discharge 07/19/2024 0242 by Kaitna Torres RN Outcome: Progressing 07/19/2024 0238 by [...] pressure reduction techniques 07/19/2024 0246 by Katina Torres RN Outcome: Adequate for Discharge 07/19/2024 0242 by Katina Torres RN Outcome: Progressing Goal: Patient demonstrates preventative skin care measures 07/19/2024 0246 by Katina Torres RN Outcome: [...] a 79 y.o. female : 1945 MR#: [id number] SUBJECTIVE CC: Follow-up RENE, DVT and encephalopathy [...] over the next 1-3 days. HCP: DaughterDennise. [phone] * Kayleigh Laguna, RD - 07/18/2024 4:24 [...] onward) Start Ordered 07/17/[address] [facility]; Cardiac, Diabetic; 60 gm carb/Meal; Cardiac Diet effective now Question Answer Comment Location [facility] Diet Type (req) Cardiac Diet Type (req) Diabetic Diabetic 60 gm carb/Meal Diet Type (cardiac) Cardiac 07/17/24 1205 07/11/24 1133 Dietary nutrition supplements Two times daily (BID); [facility]; Diabetic Supplement Continuous Question Answer Comment Frequency Two times daily (BID) Location [facility] Supplements Diabetic Supplement 07/11/24 1132 History [...] at home. No noted food allergies. Appetite R&D ENGINEER: Poor Intake R&D ENGINEER: Decreased Weight History: Wt Readings from Last [...] or fat depletion Skin: Skin intact per development coach Nutrition Diagnosis: Code Type: None Identified Status: [...] 1345 Type of Visit: Initial Visit and Potash Flaker Rounding Reason for Visit: Spiritual/Emotional Support and Spiritual Assessment Time Spent: 25 Minutes Location: [facility]2 Sacramental Encounters: Spiritual Distress Assessment: Spiritual Distress [...] and missed her two cats. Pt reportedbeing Sikhism while also reporting that she did not pray often. Potash Flaker's suggestion to pray that evening was received [...] usually? Transcendence Do you have a particular shinto, jimena, or spirituality? Is your shinto/spirituality/jimena challenged by what is happening to you [...] EST Ana Contreras 07/08/2024 1945 79 y.o. [id number] Kwesi Guido, * INTERVAL HISTORY: No events [...] Signed Date: 07/16/2024 12:33 ET Workstation ID: [id number] Transcribed By: Self Edit Transcribed Date: 07/16/2024 [...] unit of blood on 07/13 without complication,improved with transfusion and volume removal, will hold on further transfusion at this time, patient has received IV iron by nephrology. # Distal [...] - pending clinical improvement HCP -Daughter Dennise [phone], she was updated at bedside today. 45 minutes were spent in patient care including [id number] time, chart review, discussion with providers, documentation, order entry specialist. High complexity medical decision making. Health Care proxy with Phone number: Paul Conterras Jr (Son) Disclaimer: Speech recognition software was utilized to dictate portions of this document. Errors in marine fuel dock attendant may be present. Please call / cortext [...] Ana Chaparro Ben 07/08/2024 1945 79 y.o. [id number] Kwesi Guido, * INTERVAL HISTORY: No events [...] Signed Date: 07/16/2024 12:33 ET Workstation ID: [id number] Transcribed By: Self Edit Transcribed Date: 07/16/2024 [...] - pending clinical improvement HCP -Daughter Dennise [phone], she was updated at bedside today. 60 minutes were spent in patient care including [id number] time, chart review, discussion with providers, documentation, order entry specialist. High complexity medical decision making. Health Care proxy with Phone number: Disclaimer: Speech recognition software was utilized to dictate portions of this document. Errors in marine fuel dock attendant may be present. Please call / cortext [...] 11/29/2014 DX:Decreased vision Diabetes mellitus, type 2 ([facility]) 02/14/2014 DX:Di[facility] mellitus, type 2 ([facility] [...] Ana Chaparro Contreras 07/08/2024 1945 79 y.o. [id number] Kwesi Guido, * INTERVAL HISTORY: No events [...] - pending clinical improvement HCP -Dr. Bowden [phone], she was updated at bedside today. Health Care proxy with Phone number: Disclaimer: Speech recognition software was utilized to dictate portions of this document. Errors in marine fuel dock attendant may be present. Please call / cortext [...] Isidra Florence - 07/14/2024 2:14 PM EST [facility] Physical Therapy Evaluation & Treatment PT Discharge Recommendations: half-way facility placement Staff Recommendations for safe patient [...] is a 79 y.o. female admitted to [facility] on 07/08/2024. Patient Active Problem List Diagnosis Hypertension Hyperlipidemia History of cancer of unknown primary site CKD (chronic kidney disease) stage 4, GFR 15-29 ml/min ([facility]) Iron deficiency anemia Impaired renal function Type 2 diabetes mellitus without complication, without long-term current use of insulin ([facility]) Lung mass Acute encephalopathy Past Medical History: Diagnosis Date Anemia Arthritis Blindness Decreased vision 11/29/2014 DX:Decreased vision Diabetes mellitus, type 2 ([facility]) 02/14/2014 DX:Diabetes mellitus, [...] Shower/Tub: Tub/shower unit Prior Function Level of [place]: Independent with mobility and functional transfers Ambulation [...] 1 time per day PT Discharge Recommendations half-way facility placement Equipment Recommended walker PT - [...] is a 79 y.o. female admitted to [facility] on 07/08/2024 for Hyponatremia [E87.1] Acute on [...] deficits listedabove and optimize function. PT recommends half-way facility placement when medically stablefor safe discharge [...] 11/29/2014 DX:Decreased vision Diabetes mellitus, type 2 ([facility]) 02/14/2014 DX:Diabetes mellitus, type 2 ([facility] [...] Ana Chaparro Contreras 07/08/2024 1945 79 y.o. [id number] Kwesi Guido, * INTERVAL HISTORY: No events [...] performed without IV contrast. DLP: 613.10 mGy/cm iNeedpeData Stream CBOT VCT Iterative reconstruction technique Findings: Respiratory motion [...] Small bilateral pleural effusions, [place]. [place] ([id number]) -------- FINAL REPORT -------- Dictated By: Edilia Durbin Dictated Date: 07/12/2024 13:07 ET Assigned Physician: Edilia Durbin Reviewed and Electronically Signed By: Edilia Durbin Signed Date: 07/12/2024 13:19 ET Workstation ID: [id number] Transcribed By: Self Edit Transcribed Date: 07/12/2024 [...] - pending clinical improvement HCP -Dr. Bowden [phone], she was updated at bedside today. Health Care proxy with Phone number: Disclaimer: Speech recognition software was utilized to dictate portions of this document. Errors in marine fuel dock attendant may be present. Please call / cortext [...] 11/29/2014 DX:Decreased vision Diabetes mellitus, type 2 ([facility]) 02/14/2014 DX:Diabetes mellitus, type 2 ([facility] [...] -Review of spot urine for electrolytes protein [id number] Q [place] is not clearly pointing towards significant prerenal [...] No indication today They agree to have TRANSPORT TECHNICIAN if she needs it Discussed with the medical team in detail about the patient Chencho Wayne MD * Kwesi Guido MD - 07/13/2024 10:44 AM EST Ana Contreras 07/08/2024 1945 79 y.o. [id number] Kwesi Guido, * INTERVAL HISTORY: No events [...] - pending clinical improvement HCP -Dr. Bowden [phone], she was updated at bedside today. Health Care proxy with Phone number: Disclaimer: Speech recognition software was utilized to dictate portions of this document. Errors in marine fuel dock attendant may be present. Please call / cortext [...] Dietary nutrition supplements Two times daily (BID); [facility]; Diabetic Supplement Continuous Question Answer Comment Frequency Two times daily (BID) Location [facility] Supplements Diabetic Supplement 07/11/24 1132 07/11/[address] [facility]; Cardiac, Diabetic; 75 gm carb/Meal; No Added Salt Diet effective now Question Answer Comment Location [facility] Diet Type (req) Cardiac Diet Type (req) Diabetic Diabetic 75 gm carb/Meal Diet Type (cardiac) No Added Salt 07/11/24 1132 History of presenting illness: Patient is a 79 y.o. female with a history of Past Medical History: Diagnosis Date Anemia Arthritis Blindness Decreased vision 11/29/2014 DX:Decreased vision Diabetes mellitus, type 2 ([facility]) 02/14/2014 DX:Diabetes mellitus, type 2 ([facility] [...] at home. No noted food allergies. Appetite R&D ENGINEER: Poor Intake R&D ENGINEER: Stable Weight History: Wt Readings from Last [...] or fat depletion Skin: Skin intact per development coach Nutrition Diagnosis: Code Type: None Identified Status: [...] Guido MD - 07/12/2024 11:47 PM EST [facility] Provider Response Note PATIENT: ANA CONTRERAS : 1945 ADMIT DATE: 07/08/2024 2:44 PM DISCH DATE: RESPONDING PROVIDER #: [id number] PROVIDER RESPONSE TEXT: The patient has metabolic encephalopathy. QUERY TEXT: Encephalopathy is documented in the medical record. Please specify the type. H&P 07/08/2024 (3) Patient will be transferred to the care of [facility] staff for further management of their acute [...] EST Ana Contreras 07/08/2024 1945 79 y.o. [id number] Kwesi Guido, * INTERVAL HISTORY: No events [...] Signed Date: 07/10/2024 14:08 ET Workstation ID: [id number] Transcribed By: Self Edit Transcribed Date: 07/10/2024 [...] - pending clinical improvement HCP -Dr. Bowden [phone], she was updated at bedside today. Health Care proxy with Phone number: Disclaimer: Speech recognition software was utilized to dictate portions of this document. Errors in marine fuel dock attendant may be present. Please call / cortext [...] Ana Chaparro Contreras 07/08/2024 1945 79 y.o. [id number] Kwesi Guido, * INTERVAL HISTORY: No events [...] Signed Date: 07/10/2024 14:08 ET Workstation ID: [id number] Transcribed By: Self Edit Transcribed Date: 07/10/2024 [...] - pending clinical improvement HCP -Dr. Bowden [phone] Her son Paul was updated at bedside with her permission Health Care proxy with Phone number: Disclaimer: Speech recognition software was utilized to dictate portions of this document. Errors in marine fuel dock attendant may be present. Please call / cortext me if any questions. Portions of this note such ROS, Exam, Assessment and Plan were copy pasted from previous notes. Information was reviewed and changes were made accordingly. I agree with above mentioned information * Kwesi Guido MD - 07/11/2024 5:44 PM EST [facility] Provider Response Note PATIENT: ANA CONTRERAS : 1945 ADMIT DATE: 07/08/2024 2:44 PM DISCH DATE: RESPONDING PROVIDER #: [id number] PROVIDER RESPONSE TEXT: The patient has traumatic [...] 11/29/2014 DX:Decreased vision Diabetes mellitus, type 2 ([facility]) 02/14/2014 DX:Diabetes mellitus, type 2 (HCC) Family [...] Elmore, OT - 07/11/2024 8:34 AM EST [facility] Occupational Therapy Evaluation DATE: Thursday July 11, 2024 TIME IN: 729 TIME OUT: 819 Pt: Ana Contreras ROOM: 561/561-2 Discharge Recommendation: half-way facility Equipment Recommendation: walker Staff recommendations for [...] is a 79 y.o. female admitted to [facility] on 07/08/2024. Occupational Therapy evaluation and treatment ordered to assess ADL independence, safety, and functional mobility for discharge planning. Patient Active Problem List Diagnosis Hypertension Hyperlipidemia History of cancer of unknown primary site CKD (chronic kidney disease) stage 4, GFR 15-29 ml/min ([facility]) Iron deficiency anemia Impaired renal function Type 2 diabetes mellitus without complication, without long-term current use of insulin ([facility]) Lung mass Acute encephalopathy Past Medical History: Diagnosis Date Anemia Arthritis Blindness Decreased vision 11/29/2014 DX:Decreased vision Diabetes mellitus, type 2 ([facility]) 02/14/2014 DX:Di[facility], type 2 [facility] [...] - Evaluation Status: Complete OT Discharge Recommendations: half-way facility placement, Home OT Equipment Recommended: Walker-standard, [...] Goldman PT - 07/10/2024 2:37 PM EST [facility] Physical Therapy Evaluation & Treatment PT Discharge Recommendations: half-way facility placement Staff Recommendations for safe patient [...] is a 79 y.o. female admitted to [facility] on 07/08/2024. Patient Active Problem List Diagnosis Hypertension Hyperlipidemia History of cancer of unknown primary site CKD (chronic kidney disease) stage 4, GFR 15-29 ml/min ([facility]) Iron deficiency anemia Impaired renal function Type 2 diabetes mellitus without complication, without long-term current use of insulin ([facility]) Lung mass Acute encephalopathy Past Medical History: Diagnosis Date Anemia Arthritis Blindness Decreased vision 11/29/2014 DX:Decreased vision Diabetes mellitus, type 2 ([facility]) 02/14/2014 DX:Diabetes mellitus, [...] of Steps: 3 Prior Function Level of [place]: Independent with mobility and functional transfers Ambulation [...] of Steps 3 Prior Function Level of [place] Independent with mobility and functional transfers Ambulation [...] 1 time per day PT Discharge Recommendations half-way facility placement PT - Evaluation Status Complete [...] is a 79 y.o. female admitted to [facility] on 07/08/2024 for Hyponatremia [E87.1] Acute on [...] listed above and optimize function. PT recommends half-way facility placement when medically stable for safe [...] a 79 y.o. female : 1945 MR#: [id number] SUBJECTIVE CC: Here with fall, RENE, hyponatremia [...] Signed Date: 07/09/2024 09:03 ET Workstation ID: [id number] Transcribed By: Self Edit Transcribed Date: 07/09/2024 [...] - pending clinical improvement HCP -Dr. Bowden [phone] -I met with her at the bedside on 07/09/24 and reviewed the plan. * Tarsha Corea RN - 07/09/2024 10:22 AM EST 07/09/24 1021 Initial Transition Plan Initial Transition Plan Shelter Facility Back up Transition Plan Back up Transition plan Home Health Care Discharge Planning Living Arrangements Alone Type of Residence Private residence Assistive Devices Walker;Cane;Eyeglasses;Dentures upper Support Systems Extended family;Children Anticipated Discharge Needs Home Health RN;PT;OT Discipline following for SNF placement Wood Model Maker ICC confirmed demographics w Dennise, daughter. Barriers: [...] a 79 y.o. female : 1945 MR#: [id number] SUBJECTIVE CC: Here with fall, RENE, hyponatremia [...] Signed Date: 07/08/2024 14:07 ET Workstation ID: [id number] Transcribed By: Self Edit Transcribed Date: 07/08/2024 [...] Signed Date: 07/08/2024 12:27 ET Workstation ID: [id number] Transcribed By: Self Edit Transcribed Date: 07/08/2024 [...] Signed Date: 07/08/2024 12:23 ET Workstation ID: [id number] Transcribed By: Self Edit Transcribed Date: 07/08/2024 [...] Dispo -pending clinical improvement HCP -Dr. Bowden [phone] -I met with her at the bedside [...] infectious concerns): [] Yes / [x] No Staff Engineer: [] Yes / [x] No If YES, Cardiac Rhythm: [] NSR, [] SB, [] ST, [] A-FIB, [] A-Flutter, [] Pacemaker, [] 1st Degree HB, [] 2nd Degree HB, [] 3rd Degree HB Reason for Staff Engineer: VS: Visit Vitals BP (!) 148/62 (BP [...] [place]: [place] [phone] * Michelle Christie RN - 07/08/2024 3:51 PM EST 07/08/24 1549 Initial Transition Plan Initial Transition Plan Shelter Facility Back up Transition Plan Back up Transition plan Home Health Care Discharge Planning Contact (Name, Phone #, Relationship) for DC Planning Dennise Nj daughter [phone] Living Arrangements Alone Type of Residence Private residence (apartment with 6 steps to enter/no elevator) Assistive Devices Walker;Cane Support Systems Children;Extended family Medication Coverage Has Med Coverage Under Insurance Plan Yes Anticipated Discharge Needs Home Health PT;RN Discipline following for SNF placement Wood Model Maker Patient lives alone in a first floor [...] wide VNA and STR including: [facility] and placed in [facility]. HCP completed and IM given as [...] - 07/08/2024 10:32 AM EST Pt to [facility] via [facility]. Unwitnessed mechanical fall this [...] REFLEX MICROSCOPIC AND CULTURE - Abnormal Specific [place] Urine 1.020 pH, Urine 5.5 Leukocytes, Urine [...] Procedure Abnormality Status --------- ------ CBC auto differential[[id number]] Abnormal Final result Please view results for these tests on the individual orders. TROPONIN I HIGH SENSITIVITY URINALYSIS WITH REFLEX MICROSCOPIC AND CULTURE Narrative: The following orders were created for panel order Urinalysis with reflex microscopic and culture. Procedure Abnormality Status --------- ------ Urinalysis with reflex ...[[id number]] Abnormal Final result Robertson urine culture tube[[id number]] In process Please view results for these [...] Signed Date: 07/08/2024 12:27 ET Workstation ID: [id number] Transcribed By: Self Edit Transcribed Date: 07/08/2024 12:[address] Head wo Contrast Final Result NO ACUTE INTRACRANIAL ABNORMALITY. -------- FINAL REPORT -------- Dictated By: GLENNA SOLITARIO Dictated Date: 07/08/2024 12:22 ET Assigned Physician: GLENNA SOLITARIO Reviewed and Electronically Signed By: GLENNA SOLITARIO Signed Date: 07/08/2024 12:23 ET Workstation ID: [id number] Transcribed By: Self Edit Transcribed Date: 07/08/2024 [...] - 08/05/2024 10:58 AM EST Plan for [facility] EBUS. Source Note - RYLEY Harris - 07/13/2024 10:28 AM EST Patient currently admitted to [facility] for RENE and anemia. Possible need for HD. Will cancel her lance bronch/EBUS scheduled 07/14/24 and reschedule in the next couple weeks. * RYLEY Rivas - 07/08/2024 3:39 PM EST Images from the original note were not included. SONYA HISTORY AND PHYSICAL Please contact author [RYLEY Rivas] via [employer]. Patient: Ana Contreras Admission Date/Time: 07/08/2024 10:31 [...] was found down on the ground by [facility]. She was unsure the details of [...] will be transferred to the care of [facility] staff for further management of their acute encephalopathy, fall. Review of Systems Review of Systems 10 point review of systems negative as otherwise stated in the HPI MEDICAL HISTORY Past Medical History Past Medical History: Diagnosis Date ??? Anemia ??? Arthritis ??? Blindness ??? Decreased vision 11/29/2014 DX:Decreased vision ??? Diabetes mellitus, type 2 ([facility]) 02/14/2014 DX:Diabetes mellitus, type 2 ([facility]) ??? Family history of early CAD 03/01/2014 [...] Signed Date: 07/08/2024 14:07 ET Workstation ID: [id number] Transcribed By: Self Edit Transcribed Date: 07/08/2024 14:[address] Cervical Spine wo Contrast Final Result No acute cervical spine fracture. -------- FINAL REPORT -------- Dictated By: GLENNA SOLITARIO Dictated Date: 07/08/2024 12:24 ET Assigned Physician: GLENNA SOLITARIO Reviewed and Electronically Signed By: GLENNA SOLITARIO Signed Date: 07/08/2024 12:27 ET Workstation ID: [id number] Transcribed By: Self Edit Transcribed Date: 07/08/2024 12:[address] Head wo Contrast Final Result NO ACUTE INTRACRANIAL ABNORMALITY. -------- FINAL REPORT -------- Dictated By: GLENNA SOLITARIO Dictated Date: 07/08/2024 12:22 ET Assigned Physician: GLENNA SOLITARIO Reviewed and Electronically Signed By: GLENNA SOLITARIO Signed Date: 07/08/2024 12:23 ET Workstation ID: [id number] Transcribed By: Self Edit Transcribed Date: 07/08/2024 [...] onward) Start Ordered 07/08/[address] [facility]; General; Regular Diet effective now Question Answer Comment Location [facility] Diet Type (req) General General Diet Regular 07/08/24 1444 [x] Lines, tubes, drains: IV access [x] Medication reconciliation Health Care proxy with Phone number Dennise Nj daughter [phone] Cosigned by Wayne Donahue MD at 07/15/2024 [...] L4, and 11R. Surgeon: Cecily Montez MD Hog Cooler: None Specimens: Above for pathology/cytology/microbiology Anesthesia: General [...] Insertion of 18g/10cm Bard Powerglide midline Lot: [id number] Exp: 2025-05-28 Indications: Difficult draw with frequent [...] Fela Palomo MD Staff Role Emilie Silva Furniture Upholstery Mechanic Dorothea Garay Furniture Upholstery Mechanic Lay Roth Furniture Upholstery Mechanic Diaz Denise RN CV Invasive Nurse Fela [...] onward) Start Ordered 07/08/[address] [facility]; General; Regular Diet effective now Question Answer Comment Location [facility] Diet Type (req) General General Diet [...] at home. No noted food allergies. Appetite R&D ENGINEER: Poor Intake R&D ENGINEER: Decreased Weight History: Wt Readings from Last [...] stable between 168-178 lb over past year ([id number] lb). Weight in 12/2022 was 184 lb indicating 10 lb (5.4%) weight loss over course of 18 months. Subjective Assessment: Pt seen for nutrition consult/ high MST score. Pt admitted for fall, RENE and hyponatremia. Pt recently diagnosed with lung nodule with planned bronchoscopy and EBUS. Seen by OT and PT- recommending discharge to halfway facility. 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 [employer] Family History Problem Relation Name Age of [...] should gradually improve, can get input from resource technician, please call me for an y question documented in this encounter Plan of Treatment Upcoming Encounters Date Type Department Care Team (Late st Contact Info) Description 09/05/2024 10:00 AM EDT Office Visit Endocrinology - [place] [address] [place] [address] Kathy Michelle PA [address] [place] [address] 09/06/2024 11:00 AM EDT Ancillary Procedure [facility] [address] [place] [address] 10/06/2024 1:15 PM EDT Office Visit Internal Medicine - [place] [address] [place] [address] Eloisa Vázquez DO [address] [place] [address] 11/14/2024 11:30 AM EDT Appointment [facility] CT Scan [address] [place] [phone] 12/01/2024 10:00 AM EDT Office Visit Thoracic Surgery - [place] [address] [place] [phone] Cecily Montez MD [address] [place] [address] Pending Results Name Type Priority Associated Diagnoses [...] 08/05/19 12:32 PM EST Pulmonary nodule CULTURE FUNGAL, OTHER Routine 08/05/2024 12:32 PM EST Pulmonary nodule XR CHEST 1 VIEW Routine 08/05/2024 12:29 PM EST NON-GYNECOLOGIC CYTOLOGY Routine 025 12:20 PM EST Pulmonary nodule TX BRONCHOSCOPY RIGID/FLEXIBLE W/EBUS >=3 MEDIASTINAL/HILAR LYMPH NODES 08/05/2024 11:46 AM EST Pulmonary nodule TX BRONCHOSCOPY INCL FLUROSCOPIC GUIDANCE W PLCMNT FIDUCIAL MARKER SGL/MULT 08/05/2024 11:46 AM EST Pulmonary nodule TX BRONCHOSCOPY RIGID/FLEXIBLE INCL FLUORO W/THERAPY ASPIRATION INITIAL [...] AM EST POCT GLUCOSE BLOOD Routine 07/24/2024 7 :58 PM EST POCT GLUCOSE BLOOD Routine 07/24/2024 [...] BLOOD Routine 07/11/2024 8: 17 AM EST TX IMMUNOFIXATION ELECTROPHORESIS SERUM Routine 07/11/2024 6:21 AM [...] BLOOD Routine 07/08/2024 6: 19 PM EST TX PROTEIN ELECTROPHORETIC FRACTIONATION & QUANTITATION SERUM Routine [...] POCT Glucose, blood (08/06/2024 11:07 AM EST) [facility] Signature Glucose POCT 187(H) 70 - 100 mg/dL 08/06/2024 11:09 AM EST [facility] Blood Capillary blood specimen / Unknown 08/06/2024 11:07 AM EST 08/06/2024 11:10 AM EST us Steve Cruz MD LAB POINT OF CA RE TEST DOCKED DEVICE UNSOLICITED RESULTS Final Result [facility] [address] [place] [address], [place] [phone] * (ABNORMAL) POCT Glucose, blood (08/06/2024 7:26 AM EST) [facility] Glucose POCT 66(L) 70 - 100 mg/dL 08/06/2024 7:27 AM EST [facility] Blood Capillary blood specimen / Unknown 08/06/2024 7:26 AM EST 08/06/2024 7:28 AM EST us Steve Cruz MD LAB POINT OF IN RE TEST DOCKED DEVICE UNSOLICITED RESULTS Final Result [facility] [address] [place] [address], [place] [phone] * (ABNORMAL) POCT Glucose, blood (08/05/2024 8:08 PM EST) Glucose POCT 263(H) 70 - 100 mg/dL 08/05/2024 8:08 PM EST [facility] Blood Capillary blood specimen / Unknown 08/05/2024 8:08 PM EST 08/05/2024 8:09 PM EST us Steve Cruz MD LAB POINT OF IN RE TEST DOCKED DEVICE UNSOLICITED RESULTS Final Result Performing Organization Address [facility] Co de Phone Number [facility] [address] [place] [address], [place] [phone] * (ABNORMAL) POCT Glucose, blood (08/05/2024 4:40 PM EST) [facility] Signature Glucose POCT 270(H) 70 - 100 mg/dL 08/05/2024 4:42 PM EST [facility] Blood Capillary blood specimen / Unknown 08/05/2024 4:40 PM EST 08/05/2024 4:43 PM EST us Steve Cruz MD LAB POINT OF IN RE TEST DOCKED DEVICE UNSOLICITED RESULTS Final Result Performing Organization Address [facility] de Phone Number [facility] [address] [place] [address], [place] [phone] * XR Chest 1 View (08/05/2024 1:43 [...] Signed Date: 08/05/2024 13:49 ET Workstation ID: [id number] Transcribed By: Self Edit Transcribed Date: 08/05/2024 [...] Signed Date: 08/05/2024 13:49 ET Workstation ID: [id number] Transcribed By: Self Edit Transcribed Date: 08/05/2024 13:46 ET us Cecily Montez MD IMG XR PROCEDURES Final Result * (ABNORMAL) POCT Glucose, blood (08/05/2024 1:40 PM EST) Pathologist [facility] Glucose POCT 148(H) 70 - 100 mg/dL 08/05/2024 1:41 PM EST [facility] Blood Capillary blood specimen / Unknown 08/05/2024 1:40 PM EST 08/05/2024 1:42 PM EST Steve Cruz MD LAB POINT OF CA RE TEST DOCKED DEVICE UNSOLICITED RESULTS Final Result [facility] [address] [place] [address], * Concentration (08/05/2024 12:32 PM EST) AFB Concentration Performed 025 3:05 PM EST [facility] Structure of upper lobe of right lung / Unknown 08/05/2024 12:32 PM EST 08/05/2024 1:17 PM EST Narrative [facility] - 08/06/2024 3:05 PM EST Performed at: ??01 - [facility] [address] ??[id number] Art Professor: Diane Belle MD, Phone: ??[phone] us Cecily Montez MD LAB BLOOD ORDERABLES [...] ORDER SYLVAIN Final Result Performing Organization Address City/[facility]/ZIP Co de Phone Number [facility] [address] [place] [address], [place] [phone] * Culture bronchial with gram stain (08/05/2024 [...] MICROBIOLOGY - GENERAL ORDER SYLVAIN Final Result [facility] [address] [place] [address], [place] [phone] * XR Chest 1 View (08/05/2024 12:29 [...] Signed Date: 08/08/2024 07:52 ET Workstation ID: [id number] Transcribed By: Self Edit Transcribed Date: 08/08/2024 [...] Signed Date: 08/08/2024 07:52 ET Workstation ID: [id number] Transcribed By: Self Edit Transcribed Date: 08/08/2024 07:50 ET us Cecily Montez MD IMG XR [...] lymph node elements present. 08/09/2024 1:04 PM [facility] Specimen A Adequacy Satisfactory for evaluation 08/09/2024 1:04 PM [facility] Specimen B Adequacy Satisfactory for evaluation 08/09/2024 1:04 PM [facility] Specimen C Adequacy Satisfactory for evaluation 08/09/2024 1:04 PM [facility] Specimen D Adequacy Satisfactory for evaluation 08/09/2024 1:04 PM [facility] Specimen E Adequacy Specimen processed and examined, but unsatisfactory for eval of abnormal epithelial 08/09/2024 1:04 PM [facility] Specimen F Adequacy Satisfactory for evaluation 08/09/2024 1:04 PM [facility] Gross Description A. Lung, [...] fixation time 54 hours. 08/09/2024 1:04 PM [facility] Disclaimer Unless otherwise specified, all tissue is 10% NB formalin fixed and paraffin embedded. Technical cytopathology services provided by [facility], at [address] [place] [address] (CLIA # [id number]/Gladys Prince MD, Country Printer.) 08/09/2024 1:04 PM EST [facility] [...] MD LAB CYTOLOGY ORDERABLES Final Re sult [facility] [address] [place] [address], * (ABNORMAL) Basic metabolic panel (08/05/2024 7:04 AM EST) Sodium 133 133 - 145 mmol/L LAB CHEMISTRY METHOD 08/05/2024 8:01 AM [facility] Potassium 4.5 3.5 - 5.5 mmol/L LAB CHEMISTRY METHOD 08/05/2024 8:01 AM [facility] Chloride 96 96 - 110 mmol/L LAB CHEMISTRY METHOD 08/05/2024 8:01 AM [facility] CO2 32 21 - 32 mmol/L LAB CHEMISTRY METHOD 08/05/2024 8:01 AM [facility] Anion Gap 5 3 - 11 LAB CHEMISTRY METHOD 08/05/2024 8:01 AM [facility] Glucose 138(H) 70 - 100 mg/dL LAB CHEMISTRY METHOD 08/05/2024 8:01 AM [facility] BUN 53(H) 5 - 25 mg/dL LAB CHEMISTRY METHOD 08/05/2024 8:01 AM [facility] Creatinine 3.91(H) 0.50 - 1.10 mg/dL LAB CHEMISTRY METHOD 08/05/2024 8:01 AM [facility] eGFR 11(L) >=60 mL/min/1. 73m2 LAB CHEMISTRY METHOD 08/05/2024 8:01 AM [facility] Comment:Calculation based on the??Chronic Kidney Disease Epidemiology Collaboration (CKD-EPI) equation refit??without adjustment for race. BUN/Creatinine Ratio 13.6 LAB CHEMISTRY METHOD 08/05/2024 8:01 AM [facility] Calcium 8.4(L) 8.5 - 10.5 mg/dL LAB CHEMISTRY METHOD 08/05/2024 8:01 AM [facility] Blood Venous blood specimen / Unknown Venipuncture / Unknown 08/05/2024 7:04 AM EST 08/05/2024 7:34 AM EST Steve Cruz MD LAB BLOOD ORDERABLES Fi nal Result [facility] [address] [place] [address], * (ABNORMAL) CBC - Every 3 Days (08/05/2024 7:03 AM EST) WBC 8.8 4.8 - 10.8 K/mcL LAB HEMETOLOGY METHOD 08/05/2024 7:42 AM [facility] RBC 2.90(L) 3.80 - 4.80 M/mcL LAB HEMETOLOGY METHOD 08/05/2024 7:42 AM [facility] Hemoglobin 7.9(L) 11.5 - 16.0 g/dL LAB HEMETOLOGY METHOD 08/05/2024 7:42 AM [facility] Hematocrit 25.5(L) 35.0 - 47.0 % LAB HEMETOLOGY METHOD 08/05/2024 7:42 AM [facility] MCV 87.6 79.0 - 98.0 FL LAB HEMETOLOGY METHOD 08/05/2024 7:42 AM [facility] MCH 27.1 27.0 - 32.0 pcg LAB HEMETOLOGY METHOD 08/05/2024 7:42 AM EST [facility] MCHC 31.0(L) 32.0 - 37.0 g/dL LAB HEMETOLOGY METHOD 08/05/2024 7:42 AM [facility] RDW 21.9(H) 11.0 - 15.0 % LAB HEMETOLOGY METHOD 08/05/2024 7:42 AM [facility] Platelets 180 130 - 400 K/mcL LAB HEMETOLOGY METHOD 08/05/2024 7:42 AM [facility] MPV 10.8 7.0 - 11.0 FL LAB HEMETOLOGY METHOD 08/05/2024 7:42 AM [facility] NRBC 0.0 <1.0 % LAB HEMETOLOGY METHOD 08/05/2024 7:42 AM [facility] NRBC Absolute 0.00 <0.10 K/mcL LAB HEMETOLOGY METHOD 08/05/2024 7:42 AM [facility] Blood Venous blood specimen / Unknown Venipuncture / Unknown 08/05/2024 7:03 AM EST 08/05/2024 7:34 AM EST us Estdimas Stuart MD LAB BLOOD ORDERABLES Final R esult [facility] [address] [place] [address], * (ABNORMAL) POCT Glucose, blood (08/04/2024 8:39 PM EST) [facility] Glucose POCT 352(H) 70 - 100 mg/dL 08/04/2024 8:40 PM EST [facility] Blood Capillary blood specimen / Unknown 08/04/2024 8:39 PM EST 08/04/2024 8:41 PM EST us Steve Cruz MD LAB POINT OF CA RE TEST DOCKED DEVICE UNSOLICITED RESULTS Final Result Performing Organization Address City/[facility]/ZIP Co de Phone Number [facility] [address] [place] [address], [place] [phone] * (ABNORMAL) POCT Glucose, blood (08/04/2024 5:36 PM EST) Glucose POCT 376(H) 70 - 100 mg/dL 08/04/2024 5:37 PM EST [facility] Blood Capillary blood specimen / Unknown 08/04/2024 5:36 PM EST 08/04/2024 5:38 PM EST us Steve Cruz MD LAB POINT OF CA RE TEST DOCKED DEVICE UNSOLICITED RESULTS Final Result Performing Organization Address City/[facility] [facility] [place]/ZIP Co de Phone Number [facility] [address] [place] [address], [place] [phone] * (ABNORMAL) POCT Glucose, blood (08/04/2024 11:05 AM EST) Glucose POCT 130(H) 70 - 100 mg/dL 08/04/2024 11:07 AM EST [facility] Blood Capillary blood specimen / Unknown 08/04/2024 11:05 AM EST 08/04/2024 11:08 AM EST us Steve Cruz MD LAB POINT OF CA RE TEST DOCKED DEVICE UNSOLICITED RESULTS Final Result [facility] [address] [place] [address], [place] [phone] * (ABNORMAL) POCT Glucose, blood (08/04/2024 8:03 AM EST) Glucose POCT 116(H) 70 - 100 mg/dL 08/04/2024 8:05 AM EST [facility] Blood Capillary blood specimen / Unknown 08/04/2024 8:03 AM EST 08/04/2024 8:07 AM EST Steve Cruz MD LAB POINT OF CA RE TEST DOCKED DEVICE UNSOLICITED RESULTS Final Result Performing Organization Address [facility]/ZIP Co de Phone Number [facility] [address] [place] [address], * (ABNORMAL) Creatinine, Serum - Every 7 Days (08/04/2024 6:31 AM EST) [facility] Signature Creatinine 2.49(H) 0.50 - 1.10 [...] ORDERABLES Final Re sult Performing Organization Address City/[facility]/ZIP Co de Phone Number [facility] [address] [place] [address], [place] [phone] * (ABNORMAL) POCT Glucose, blood (08/03/2024 9:59 PM EST) Glucose POCT 135(H) 70 - 100 mg/dL 08/03/2024 9:59 PM EST [facility] Blood Capillary blood specimen / Unknown 08/03/2024 9:59 PM EST 08/03/2024 10:00 PM EST us Steve Cruz MD LAB POINT OF CA RE TEST DOCKED DEVICE UNSOLICITED RESULTS Final Result Performing Organization Address [facility]/ZIP Co de Phone Number [facility] [address] [place] [address], [place] [phone] * (ABNORMAL) POCT Glucose, blood (08/03/2024 3:47 PM EST) Glucose POCT 304(H) 70 - 100 mg/dL 08/03/2024 3:48 PM EST [facility] Blood Capillary blood specimen / Unknown 08/03/2024 3:47 PM EST 08/03/2024 3:49 PM EST us Steve Cruz MD LAB POINT OF CA RE TEST DOCKED DEVICE UNSOLICITED RESULTS Final Result Performing Organization Address [facility]/ZIP Co de Phone Number [facility] [address] [place] [address], [place] [phone] * (ABNORMAL) POCT Glucose, blood (08/03/2024 12:35 PM EST) Glucose POCT 125(H) 70 - 100 mg/dL 08/03/2024 12:59 PM EST [facility] Blood Capillary blood specimen / Unknown 08/03/2024 12:35 PM EST 08/03/2024 1:00 PM EST us Steve Cruz MD LAB POINT OF CA RE TEST DOCKED DEVICE UNSOLICITED RESULTS Final Result Performing Organization Address City/[facility]/ZIP Co de Phone Number [facility] [address] [place] [address], [place] [phone] * Hepatitis B surface antigen with reflex to confirmation (08/03/2024 8:49 AM EST) Pathologist [facility] Hepatitis B Surface Ag Negative Negative LAB CHEMISTRY METHOD 08/03/2024 10:11 AM EST [facility] Blood Venous blood specimen / Unknown Venipuncture / Unknown 08/03/2024 8:49 AM EST 08/03/2024 9:22 AM EST [facility] - 08/03/2024 10:11 AM EST Over the counter supplements containing high doses of biotin may interfere with this assay. ??If interference is suspected, patients shoud be retested after refraining from biotin supplements for 72 hours. us Steve Cruz MD LAB BLOOD ORDERABLES Fi nal Result Performing Organization Address [facility] Co de Phone Number [facility] [address] [place] [address], * Hepatitis B surface antibody quantitative (08/03/2024 8:49 AM EST) [facility] Hepatitis B Surface Ab Negative Negative [...] ORDERABLES Fi nal Result Performing Organization Address City/[facility]/ZIP Co de Phone Number [facility] [address] [place] [address], * (ABNORMAL) Complete blood count (08/03/2024 8:49 AM EST) [facility] WBC 8.5 4.8 - 10.8 K/mcL LAB HEMETOLOGY METHOD 08/03/2024 9:28 AM [facility] RBC 2.90(L) 3.80 - 4.80 M/mcL LAB HEMETOLOGY METHOD 08/03/2024 9:28 AM [facility] Hemoglobin 7.7(L) 11.5 - 16.0 g/dL LAB HEMETOLOGY METHOD 08/03/2024 9:28 AM [facility] Hematocrit 24.6(L) 35.0 - 47.0 % LAB HEMETOLOGY METHOD 08/03/2024 9:28 AM [facility] MCV 84.2 79.0 - 98.0 FL LAB HEMETOLOGY METHOD 08/03/2024 9:28 AM [facility] MCH 26.4(L) 27.0 - 32.0 pcg LAB HEMETOLOGY METHOD 08/03/2024 9:28 AM [facility] MCHC 31.3(L) 32.0 - 37.0 g/dL LAB HEMETOLOGY METHOD 08/03/2024 9:28 AM [facility] RDW 21.8(H) 11.0 - 15.0 % LAB HEMETOLOGY METHOD 08/03/2024 9:28 AM [facility] Platelets 186 130 - 400 K/mcL LAB HEMETOLOGY METHOD 08/03/2024 9:28 AM [facility] MPV 10.5 7.0 - 11.0 FL LAB HEMETOLOGY METHOD 08/03/2024 9:28 AM [facility] NRBC 0.0 <1.0 % LAB HEMETOLOGY METHOD 08/03/2024 9:28 AM [facility] NRBC Absolute 0.00 <0.10 K/mcL LAB HEMETOLOGY METHOD 08/03/2024 9:28 AM [facility] Blood Venous blood specimen / Unknown Venipuncture / Unknown 08/03/2024 8:49 AM EST 08/03/2024 9:22 AM EST Steve Cruz MD LAB BLOOD ORDERABLES Fi nal Result [facility] [address] [place] [address], * (ABNORMAL) CBC auto differential (08/03/2024 6:01 AM EST) WBC 7.5 4.8 - 10.8 K/mcL LAB HEMETOLOGY METHOD 08/03/2024 7:49 AM [facility] RBC 2.90(L) 3.80 - 4.80 M/mcL LAB HEMETOLOGY METHOD 08/03/2024 7:49 AM [facility] Hemoglobin 7.8(L) 11.5 - 16.0 g/dL LAB HEMETOLOGY METHOD 08/03/2024 7:49 AM [facility] Hematocrit 24.7(L) 35.0 - 47.0 % LAB HEMETOLOGY METHOD 08/03/2024 7:49 AM [facility] MCV 85.8 79.0 - 98.0 FL LAB HEMETOLOGY METHOD 08/03/2024 7:49 AM [facility] MCH 27.1 27.0 - 32.0 pcg LAB HEMETOLOGY METHOD 08/03/2024 7:49 AM [facility] MCHC 31.6(L) 32.0 - 37.0 g/dL LAB HEMETOLOGY METHOD 08/03/2024 7:49 AM [facility] RDW 21.6(H) 11.0 - 15.0 % LAB HEMETOLOGY METHOD 08/03/2024 7:49 AM [facility] Platelets 188 130 - 400 K/mcL LAB HEMETOLOGY METHOD 08/03/2024 7:49 AM [facility] MPV 11.2(H) 7.0 - 11.0 FL LAB HEMETOLOGY METHOD 08/03/2024 7:49 AM [facility] NRBC 0.0 <1.0 % LAB HEMETOLOGY METHOD 08/03/2024 7:49 AM [facility] NRBC Absolute 0.00 <0.10 K/mcL LAB HEMETOLOGY METHOD 08/03/2024 7:49 AM [facility] Neutrophils Relative 77.2 % LAB HEMETOLOGY METHOD 08/03/2024 7:49 AM [facility] Lymphocytes Relative 12.8 % LAB HEMETOLOGY METHOD 08/03/2024 7:49 AM [facility] Monocytes Relative 8.0 % LAB HEMETOLOGY METHOD 08/03/2024 7:49 AM [facility] Eosinophils Relative 0.4 % LAB HEMETOLOGY METHOD 08/03/2024 7:49 AM [facility] Basophils Relative 0.1 % LAB HEMETOLOGY METHOD 08/03/2024 7:49 AM [facility] Immature Granulocytes Relative 1.5 % LAB HEMETOLOGY METHOD 08/03/2024 7:49 AM [facility] Neutrophils Absolute 5.78 1.50 - 7.00 K/mcL LAB HEMETOLOGY METHOD 08/03/2024 7:49 AM [facility] Lymphocytes Absolute 0.96(L) 1.00 - 5.00 K/mcL LAB HEMETOLOGY METHOD 08/03/2024 7:49 AM [facility] Monocytes Absolute 0.60 0.20 - 1.00 K/mcL LAB HEMETOLOGY METHOD 08/03/2024 7:49 AM EST [facility] Eosinophils Absolute 0.03 0.00 - 0.50 K/mcL LAB HEMETOLOGY METHOD 08/03/2024 7:49 AM [facility] Basophils Absolute 0.01 0.00 - 0.20 K/mcL LAB HEMETOLOGY METHOD 08/03/2024 7:49 AM [facility] Immature Granulocytes Absolute 0.11(H) 0.00 - 0.03 K/mcL LAB HEMETOLOGY METHOD 08/03/2024 7:49 AM [facility] Blood Venous blood specimen / Unknown Venipuncture / Unknown 08/03/2024 6:01 AM EST 08/03/2024 7:27 AM EST us Steve Cruz MD LAB BLOOD ORDERABLES Fi nal Result Performing Organization Address City/[facility]/ZIP Co de Phone Number [facility] [address] [place] [address], [place] [phone] * Magnesium (08/03/2024 6:01 AM EST) Magnesium 2.1 1.9 - 2.6 mg/dL LAB CHEMISTRY METHOD 08/03/2024 8:11 AM [facility] Blood Venous blood specimen / Unknown Venipuncture / Unknown 08/03/2024 6:01 AM EST 08/03/2024 7:27 AM EST Steve Cruz MD LAB BLOOD ORDERABLES Fi nal Result [facility] [address] [place] [address], [place] [phone] * Phosphorus (08/03/2024 6:01 AM EST) Phosphorus 4.3 2.5 - 4.5 mg/dL LAB CHEMISTRY METHOD 08/03/2024 8:11 AM [facility] Blood Venous blood specimen / Unknown Venipuncture / Unknown 08/03/2024 6:01 AM EST 08/03/2024 7:27 AM EST us Steve Cruz MD LAB BLOOD ORDERABLES Fi nal Result Performing Organization Address [facility]/ZIP Co de Phone Number [facility] [address] [place] [address], [place] [phone] * (ABNORMAL) POCT Glucose, blood (08/02/2024 7:33 PM EST) Glucose POCT 241(H) 70 - 100 mg/dL 08/02/2024 7:34 PM EST [facility] Blood Capillary blood specimen / Unknown 08/02/2024 7:33 PM EST 08/02/2024 7:35 PM EST us Steve Cruz MD LAB POINT OF CA RE TEST DOCKED DEVICE UNSOLICITED RESULTS Final Result Performing Organization Address [facility]/ZIP Co de Phone Number [facility] [address] [place] [address], [place] [phone] * (ABNORMAL) POCT Glucose, blood (08/02/2024 4:27 PM EST) Glucose POCT 212(H) 70 - 100 mg/dL 08/02/2024 4:29 PM EST [facility] Blood Capillary blood specimen / Unknown 08/02/2024 4:27 PM EST 08/02/2024 4:29 PM EST us Steve Cruz MD LAB POINT OF CA RE TEST DOCKED DEVICE UNSOLICITED RESULTS Final Result Performing Organization Address City/[facility]/ZIP Co de Phone Number [facility] [address] [place] [address], [place] [phone] * Type and screen (08/02/2024 3:04 PM EST) ABO Group O 08/02/2024 4:52 PM EST [facility] Rh Type Positive 08/02/2024 4:52 PM [facility] Antibody Screen Negative 08/02/2024 4:52 PM [facility] Blood Venous blood specimen / Unknown Venipuncture / Unknown 08/02/2024 3:04 PM EST 08/02/2024 4:07 PM EST Steve Cruz MD LAB BLOOD BANK TEST ORD ERABLES Final Result [facility] [address] [place] [address], * Prepare RBC: 1 Units (08/02/2024 2:09 PM EST) Product Code [id number] 08/02/2024 6:27 PM [facility] Unit Number [id number] 08/02/19 6:27 PM [facility] Crossmatch Compatible 08/02/2024 5:03 PM [facility] Dispense Status Transfused 08/02/2024 6:27 PM [facility] Unit ABO Rh OPOS 08/02/2024 6:27 PM [facility] Unit Expiration Date Time [id number] 08/02/2024 6:27 PM [facility] Unit Blood Type 5100 08/02/2024 6:27 PM [facility] Blood Venous blood specimen / Unknown 08/02/2024 2:09 PM EST 08/02/2024 4:07 PM EST Steve Cruz MD BLOOD BANK PRODUCT ANNALISA MARI Final Result Performing Organization Address [facility]/ZIP Co de Phone Number [facility] [address] [place] [address], [place] [phone] * (ABNORMAL) POCT Glucose, blood (08/02/2024 11:26 AM EST) Glucose POCT 153(H) 70 - 100 mg/dL 08/02/2024 11:41 AM EST [facility] Blood Capillary blood specimen / Unknown 08/02/2024 11:26 AM EST 08/02/2024 11:43 AM EST us Steve Cruz MD LAB POINT OF CA RE TEST DOCKED DEVICE UNSOLICITED RESULTS Final Result Performing Organization Address [facility]/ZIP Co de Phone Number [facility] [address] [place] [address], [place] [phone] * POCT Glucose, blood (08/02/2024 7:46 AM EST) [facility] Signature Glucose POCT 90 70 - 100 mg/dL 08/02/2024 7:46 AM EST [facility] Blood Capillary blood specimen / Unknown 08/02/2024 7:46 AM EST 08/02/2024 7:48 AM EST us Steve Cruz MD LAB POINT OF CA RE TEST DOCKED DEVICE UNSOLICITED RESULTS Final Result Performing Organization Address City/[facility]/ZIP Co de Phone Number [facility] [address] [place] [address], [place] [phone] * (ABNORMAL) CBC - Every 3 Days (08/02/2024 6:06 AM EST) WBC 8.0 4.8 - 10.8 K/[facility] LAB HEMETOLOGY METHOD 08/02/2024 7:45 AM [facility] RBC 2.70(L) 3.80 - 4.80 M/mcL LAB HEMETOLOGY METHOD 08/02/2024 7:45 AM [facility] Hemoglobin 7.0(L) 11.5 - 16.0 g/dL LAB HEMETOLOGY METHOD 08/02/2024 7:45 AM [facility] Hematocrit 22.9(L) 35.0 - 47.0 % LAB HEMETOLOGY METHOD 08/02/2024 7:45 AM [facility] MCV 84.2 79.0 - 98.0 FL LAB HEMETOLOGY METHOD 08/02/2024 7:45 AM [facility] MCH 25.7(L) 27.0 - 32.0 pcg LAB HEMETOLOGY METHOD 08/02/2024 7:45 AM [facility] MCHC 30.6(L) 32.0 - 37.0 g/dL LAB HEMETOLOGY METHOD 08/02/2024 7:45 AM [facility] RDW 23.4(H) 11.0 - 15.0 % LAB HEMETOLOGY METHOD 08/02/2024 7:45 AM [facility] Platelets 205 130 - 400 K/mcL LAB HEMETOLOGY METHOD 08/02/2024 7:45 AM [facility] MPV 11.0 7.0 - 11.0 FL LAB HEMETOLOGY METHOD 08/02/2024 7:45 AM [facility] NRBC 0.0 <1.0 % LAB HEMETOLOGY METHOD 08/02/2024 7:45 AM [facility] NRBC Absolute 0.00 <0.10 K/mcL LAB HEMETOLOGY METHOD 08/02/2024 7:45 AM [facility] Blood Venous blood specimen / Unknown Venipuncture / Unknown 08/02/2024 6:06 AM EST 08/02/2024 7:23 AM EST us Lencho Stuart MD LAB BLOOD ORDERABLES Final R esult Performing Organization Address City/[facility] [place]/ZIP Co de Phone Number [facility] [address] [place] [address], [place] [phone] * (ABNORMAL) POCT Glucose, blood (08/01/2024 7:43 PM EST) Glucose POCT 209(H) 70 - 100 mg/dL 08/01/2024 7:44 PM EST [facility] Blood Capillary blood specimen / Unknown 08/01/2024 7:43 PM EST 08/01/2024 7:44 PM EST us Steve Cruz MD LAB POINT OF CA RE TEST DOCKED DEVICE UNSOLICITED RESULTS Final Result Performing Organization Address City/[facility] [place]/ZIP Co de Phone Number [facility] [address] [place] [address], [place] [phone] * (ABNORMAL) POCT Glucose, blood (08/01/2024 5:20 PM EST) Glucose POCT 168(H) 70 - 100 mg/dL 08/01/2024 5:21 PM EST [facility] Blood Capillary blood specimen / Unknown 08/01/2024 5:20 PM EST 08/01/2024 5:22 PM EST us Steve Cruz MD LAB POINT OF CA RE TEST DOCKED DEVICE UNSOLICITED RESULTS Final Result Performing Organization Address City/[facility]/ZIP Co de Phone Number [facility] [address] [place] [address], [place] [phone] * (ABNORMAL) POCT Glucose, blood (08/01/2024 11:03 AM EST) Glucose POCT 149(H) 70 - 100 mg/dL 08/01/2024 11:03 AM EST [facility] Blood Capillary blood specimen / Unknown 08/01/2024 11:03 AM EST 08/01/2024 11:04 AM EST us Steve Cruz MD LAB POINT OF CA RE TEST DOCKED DEVICE UNSOLICITED RESULTS Final Result Performing Organization Address City/[facility]/ZIP Co de Phone Number [facility] [address] [place] [address], [place] [phone] * (ABNORMAL) POCT Glucose, blood (08/01/2024 8:59 AM EST) Glucose POCT 128(H) 70 - 100 mg/dL 08/01/2024 9:01 AM EST [facility] Blood Capillary blood specimen / Unknown 08/01/2024 8:59 AM EST 08/01/2024 9:02 AM EST us Steve Cruz MD LAB POINT OF CA RE TEST DOCKED DEVICE UNSOLICITED RESULTS Final Result Performing Organization Address [facility] Co de Phone Number [facility] [address] [place] [address], [place] [phone] * POCT Glucose, blood (08/01/2024 7:34 AM EST) Glucose POCT 75 70 - 100 mg/dL 08/01/2024 7:35 AM EST [facility] Blood Capillary blood specimen / Unknown 08/01/2024 7:34 AM EST 08/01/2024 7:36 AM EST us Steve Cruz MD LAB POINT OF CA RE TEST DOCKED DEVICE UNSOLICITED RESULTS Final Result Performing Organization Address City/[facility]/ZIP Co de Phone Number [facility] [address] [place] [address], * (ABNORMAL) CBC auto differential (08/01/2024 6:59 AM EST) [facility] WBC 9.2 4.8 - 10.8 K/mcL LAB HEMETOLOGY METHOD 08/01/2024 8:20 AM [facility] RBC 3.00(L) 3.80 - 4.80 M/mcL LAB HEMETOLOGY METHOD 08/01/2024 8:20 AM [facility] Hemoglobin 7.7(L) 11.5 - 16.0 g/dL LAB HEMETOLOGY METHOD 08/01/2024 8:20 AM [facility] Hematocrit 25.2(L) 35.0 - 47.0 % LAB HEMETOLOGY METHOD 08/01/2024 8:20 AM [facility] MCV 84.6 79.0 - 98.0 FL LAB HEMETOLOGY METHOD 08/01/2024 8:20 AM [facility] MCH 25.8(L) 27.0 - 32.0 pcg LAB HEMETOLOGY METHOD 08/01/2024 8:20 AM [facility] MCHC 30.6(L) 32.0 - 37.0 g/dL LAB HEMETOLOGY METHOD 08/01/2024 8:20 AM [facility] RDW 23.5(H) 11.0 - 15.0 % LAB HEMETOLOGY METHOD 08/01/2024 8:20 AM [facility] Platelets 220 130 - 400 K/mcL LAB HEMETOLOGY METHOD 08/01/2024 8:20 AM [facility] MPV 11.3(H) 7.0 - 11.0 FL LAB HEMETOLOGY METHOD 08/01/2024 8:20 AM [facility] NRBC 0.0 <1.0 % LAB HEMETOLOGY METHOD 08/01/2024 8:20 AM [facility] NRBC Absolute 0.00 <0.10 K/mcL LAB HEMETOLOGY METHOD 08/01/2024 8:20 AM [facility] Neutrophils Relative 77.4 % LAB HEMETOLOGY METHOD 08/01/2024 8:20 AM [facility] Lymphocytes Relative 12.6 % LAB HEMETOLOGY METHOD 08/01/2024 8:20 AM [facility] Monocytes Relative 7.6 % LAB HEMETOLOGY METHOD 08/01/2024 8:20 AM [facility] Eosinophils Relative 0.9 % LAB HEMETOLOGY METHOD 08/01/2024 8:20 AM [facility] Basophils Relative 0.1 % LAB HEMETOLOGY METHOD 08/01/2024 8:20 AM [facility] Immature Granulocytes Relative 1.4 % LAB HEMETOLOGY METHOD 08/01/2024 8:20 AM [facility] Neutrophils Absolute 7.09(H) 1.50 - 7.00 K/mcL LAB HEMETOLOGY METHOD 08/01/2024 8:20 AM [facility] Lymphocytes Absolute 1.16 1.00 - 5.00 K/mcL LAB HEMETOLOGY METHOD 08/01/2024 8:20 AM [facility] Monocytes Absolute 0.70 0.20 - 1.00 K/mcL LAB HEMETOLOGY METHOD 08/01/2024 8:20 AM [facility] Eosinophils Absolute 0.08 0.00 - 0.50 K/mcL LAB HEMETOLOGY METHOD 08/01/2024 8:20 AM [facility] Basophils Absolute 0.01 0.00 - 0.20 K/mcL LAB HEMETOLOGY METHOD 08/01/2024 8:20 AM [facility] Immature Granulocytes Absolute 0.13(H) 0.00 - 0.03 K/mcL LAB HEMETOLOGY METHOD 08/01/2024 8:20 AM EST [facility] Blood Venous blood specimen / Unknown Existing Catheter / Unknown 08/01/2024 6:59 AM EST 08/01/2024 8:07 AM EST us Jonny Mathur MD LAB BLOOD ORDERABLES Final Re sult [facility] [address] [place] [address], [place] [phone] * (ABNORMAL) Basic metabolic panel (08/01/2024 6:59 AM EST) Sodium 132(L) 133 - 145 mmol/L LAB CHEMISTRY METHOD 08/01/2024 8:41 AM [facility] Potassium 4.7 3.5 - 5.5 mmol/L LAB CHEMISTRY METHOD 08/01/2024 8:41 AM [facility] Chloride 96 96 - 110 mmol/L LAB CHEMISTRY METHOD 08/01/2024 8:41 AM [facility] CO2 30 21 - 32 mmol/L LAB CHEMISTRY METHOD 08/01/2024 8:41 AM [facility] Anion Gap 6 3 - 11 LAB CHEMISTRY METHOD 08/01/2024 8:41 AM [facility] Glucose 74 70 - 100 mg/dL LAB CHEMISTRY METHOD 08/01/2024 8:41 AM [facility] BUN 71(H) 5 - 25 mg/dL LAB CHEMISTRY METHOD 08/01/2024 8:41 AM [facility] Creatinine 4.62(H) 0.50 - 1.10 mg/dL LAB CHEMISTRY METHOD 08/01/2024 8:41 AM [facility] eGFR 9(L) >=60 mL/min/1. 73m2 LAB CHEMISTRY METHOD 08/01/2024 8:41 AM [facility] Comment:Calculation based on the??Chronic Kidney Disease Epidemiology Collaboration (CKD-EPI) equation refit??without adjustment for race. BUN/Creatinine Ratio 15.4 LAB CHEMISTRY METHOD 08/01/2024 8:41 AM EST [facility] Calcium 8.6 8.5 - 10.5 mg/dL LAB CHEMISTRY METHOD 08/01/2024 8:41 AM EST [facility] Blood Venous blood specimen / Unknown Existing Catheter / Unknown 08/01/2024 6:59 AM EST 08/01/2024 8:07 AM EST us Jonny Mathur MD LAB BLOOD ORDERABLES Final Re sult Performing Organization Address [facility]/ZIP Co de Phone Number [facility] [address] [place] [address], [place] [phone] * (ABNORMAL) POCT Glucose, blood (07/31/2024 8:23 PM EST) Glucose POCT 279(H) 70 - 100 mg/dL 07/31/2024 8:24 PM EST [facility] POCT Comment RN Notified 07/31/2024 8:24 PM [facility] Blood Capillary blood specimen / Unknown 07/31/2024 8:23 PM EST 07/31/2024 8:25 PM EST us Jonny Mathur MD LAB POINT OF CARE TE ST DOCKED DEVICE UNSOLICITED RESULTS Final Result Performing Organization Address [facility]/ZIP Co de Phone Number [facility] [address] [place] [address], [place] [phone] * (ABNORMAL) POCT Glucose, blood (07/31/2024 4:20 PM EST) Glucose POCT 241(H) 70 - 100 mg/dL 07/31/2024 4:21 PM EST [facility] Blood Capillary blood specimen / Unknown 07/31/2024 4:20 PM EST 07/31/2024 4:22 PM EST us Jonny Mathur MD LAB POINT OF CARE TE ST DOCKED DEVICE UNSOLICITED RESULTS Final Result Performing Organization Address [facility]/ZIP Co de Phone Number [facility] [address] [place] [address], [place] [phone] * (ABNORMAL) Hemoglobin and hematocrit (07/31/2024 2:30 [...] ORDERABLES Final Re sult Performing Organization Address [facility]/ZIP Co de Phone Number [facility] [address] [place] [address], [place] [phone] * (ABNORMAL) POCT Glucose, blood (07/31/2024 11:22 AM EST) Glucose POCT 132(H) 70 - 100 mg/dL 07/31/2024 11:24 AM EST [facility] Blood Capillary blood specimen / Unknown 07/31/2024 11:22 AM EST 07/31/2024 11:25 AM EST us Jonny Mathur MD LAB POINT OF CARE TE ST DOCKED DEVICE UNSOLICITED RESULTS Final Result [facility] [address] [place] [address], [place] [phone] * (ABNORMAL) POCT Glucose, blood (07/31/2024 8:06 AM EST) [facility] Glucose POCT 112(H) 70 - 100 mg/dL 07/31/2024 8:06 AM EST [facility] Blood Capillary blood specimen / Unknown 07/31/2024 8:06 AM EST 07/31/2024 8:08 AM EST Jonny Mathur MD LAB POINT OF CARE TE ST DOCKED DEVICE UNSOLICITED RESULTS Final Result Performing Organization Address City/[facility]/ZIP Co de Phone Number [facility] [address] [place] [address], [place] [phone] * (ABNORMAL) CBC auto differential (07/31/2024 5:43 AM EST) [facility] WBC 7.4 4.8 - 10.8 K/mcL LAB HEMETOLOGY METHOD 07/31/2024 7:02 AM [facility] RBC 2.60(L) 3.80 - 4.80 M/mcL LAB HEMETOLOGY METHOD 07/31/2024 7:02 AM [facility] Hemoglobin 6.7(L) 11.5 - 16.0 g/dL LAB HEMETOLOGY METHOD 07/31/2024 7:02 AM [facility] Hematocrit 22.0(L) 35.0 - 47.0 % LAB HEMETOLOGY METHOD 07/31/2024 7:02 AM [facility] MCV 84.0 79.0 - 98.0 [place] LAB HEMETOLOGY METHOD 07/31/2024 7:02 AM [facility] MCH 25.6(L) 27.0 - 32.0 pcg LAB HEMETOLOGY METHOD 07/31/2024 7:02 AM [facility] MCHC 30.5(L) 32.0 - 37.0 g/dL LAB HEMETOLOGY METHOD 07/31/2024 7:02 AM [facility] RDW 23.1(H) 11.0 - 15.0 % LAB HEMETOLOGY METHOD 07/31/2024 7:02 AM [facility] Platelets 183 130 - 400 K/mcL LAB HEMETOLOGY METHOD 07/31/2024 7:02 AM [facility] MPV 11.1(H) 7.0 - 11.0 FL LAB HEMETOLOGY METHOD 07/31/2024 7:02 AM [facility] NRBC 0.0 <1.0 % LAB HEMETOLOGY METHOD 07/31/2024 7:02 AM [facility] NRBC Absolute 0.00 <0.10 K/mcL LAB HEMETOLOGY METHOD 07/31/2024 7:02 AM [facility] Neutrophils Relative 77.7 % LAB HEMETOLOGY METHOD 07/31/2024 7:02 AM [facility] Lymphocytes Relative 11.7 % LAB HEMETOLOGY METHOD 07/31/2024 7:02 AM [facility] Monocytes Relative 8.6 % LAB HEMETOLOGY METHOD 07/31/2024 7:02 AM [facility] Eosinophils Relative 0.3 % LAB HEMETOLOGY METHOD 07/31/2024 7:02 AM [facility] Basophils Relative 0.1 % LAB HEMETOLOGY METHOD 07/31/2024 7:02 AM [facility] Immature Granulocytes Relative 1.6 % LAB HEMETOLOGY METHOD 07/31/2024 7:02 AM [facility] Neutrophils Absolute 5.77 1.50 - 7.00 K/mcL LAB HEMETOLOGY METHOD 07/31/2024 7:02 AM EST [facility] Lymphocytes Absolute 0.87(L) 1.00 - 5.00 K/mcL LAB HEMETOLOGY METHOD 07/31/2024 7:02 AM EST [facility] Monocytes Absolute 0.64 0.20 - 1.00 K/mcL LAB HEMETOLOGY METHOD 07/31/2024 7:02 AM [facility] Eosinophils Absolute 0.02 0.00 - 0.50 K/mcL LAB HEMETOLOGY METHOD 07/31/2024 7:02 AM [facility] Basophils Absolute 0.01 0.00 - 0.20 K/mcL LAB HEMETOLOGY METHOD 07/31/2024 7:02 AM [facility] Immature Granulocytes Absolute 0.12(H) 0.00 - 0.03 K/mcL LAB HEMETOLOGY METHOD 07/31/2024 7:02 AM [facility] Blood Venous blood specimen / Unknown Existing Catheter / Unknown 07/31/2024 5:43 AM EST 07/31/2024 6:34 AM EST Jonny Mathur MD LAB BLOOD ORDERABLES Final Re sult [facility] [address] [place] [address], * (ABNORMAL) Basic metabolic panel (07/31/2024 5:43 AM EST) Sodium 132(L) 133 - 145 mmol/L LAB CHEMISTRY METHOD 07/31/2024 7:22 AM [facility] Potassium 4.4 3.5 - 5.5 mmol/L LAB CHEMISTRY METHOD 07/31/2024 7:22 AM [facility] Chloride 94(L) 96 - 110 mmol/L LAB CHEMISTRY METHOD 07/31/2024 7:22 AM [facility] CO2 31 21 - 32 mmol/L LAB CHEMISTRY METHOD 07/31/2024 7:22 AM [facility] Anion Gap 7 3 - 11 LAB CHEMISTRY METHOD 07/31/2024 7:22 AM [facility] Glucose 123(H) 70 - 100 mg/dL LAB CHEMISTRY METHOD 07/31/2024 7:22 AM [facility] BUN 54(H) 5 - 25 mg/dL LAB CHEMISTRY METHOD 07/31/2024 7:22 AM [facility] Creatinine 3.73(H) 0.50 - 1.10 mg/dL LAB CHEMISTRY METHOD 07/31/2024 7:22 AM [facility] eGFR 12(L) >=60 mL/min/1. 73m2 LAB CHEMISTRY METHOD 07/31/2024 7:22 AM [facility] Comment:Calculation based on the??Chronic Kidney Disease Epidemiology Collaboration (CKD-EPI) equation refit??without adjustment for race. BUN/Creatinine Ratio 14.5 LAB CHEMISTRY METHOD 07/31/2024 7:22 AM [facility] Calcium 8.3(L) 8.5 - 10.5 mg/dL LAB CHEMISTRY METHOD 07/31/2024 7:22 AM [facility] Blood Venous blood specimen / Unknown Existing Catheter / Unknown 07/31/2024 5:43 AM EST 07/31/2024 6:36 AM EST us Jonny Mathur MD LAB BLOOD ORDERABLES Final Re sult [facility] [address] [place] [address], * (ABNORMAL) POCT Glucose, blood (07/30/2024 7:51 PM EST) Glucose POCT 315(H) 70 - 100 mg/dL 07/30/2024 7:51 PM [facility] Blood Capillary blood specimen / Unknown 07/30/2024 7:51 PM EST 07/30/2024 7:52 PM EST us Jonny Mathur MD LAB POINT OF CARE TE ST DOCKED DEVICE UNSOLICITED RESULTS Final Result Performing Organization Address [facility]/ZIP Co de Phone Number [facility] [address] [place] [address], [place] [phone] * (ABNORMAL) POCT Glucose, blood (07/30/2024 5:02 PM EST) Glucose POCT 299(H) 70 - 100 mg/dL 07/30/2024 5:03 PM EST [facility] Blood Capillary blood specimen / Unknown 07/30/2024 5:02 PM EST 07/30/2024 5:04 PM EST us Jonny Mathur MD LAB POINT OF CARE TE ST DOCKED DEVICE UNSOLICITED RESULTS Final Result Performing Organization Address [facility]/ZIP [facility] Phone Number [facility] [address] [place] [address], [place] [phone] * (ABNORMAL) Hemoglobin and hematocrit (07/30/2024 3:32 PM EST) Hemoglobin 7.1(L) 11.5 - 16.0 g/dL LAB HEMETOLOGY METHOD 07/30/2024 3:53 PM EST [facility] Hematocrit 23.1(L) 35.0 - 47.0 % LAB HEMETOLOGY METHOD 07/30/2024 3:53 PM EST [facility] Blood Venous blood specimen / Unknown Venipuncture / Unknown 07/30/2024 3:32 PM EST 07/30/2024 3:46 PM EST us Jonny Mathur MD LAB BLOOD ORDERABLES Final Re sult [facility] [address] [place] [address], [place] [phone] * (ABNORMAL) Hepatic Function Panel - STAT (07/30/2024 11:52 AM EST) Total Protein 5.2(L) 6.0 - 8.0 g/dL LAB CHEMISTRY METHOD 07/30/2024 12:56 PM EST [facility] Albumin 2.4(L) 3.2 - 5.0 g/dL LAB CHEMISTRY METHOD 07/30/2024 12:56 PM EST [facility] Total Bilirubin 0.4 0.0 - 1.4 mg/dL LAB CHEMISTRY METHOD 07/30/2024 12:56 PM [facility] Bilirubin, Direct 0.2 0.0 - 0.3 mg/dL LAB CHEMISTRY METHOD 07/30/2024 12:56 PM EST [facility] Bilirubin, Indirect 0.2 0.0 - 1.1 mg/dL LAB CHEMISTRY METHOD 07/30/2024 12:56 PM EST [facility] ALT (SGPT) 17 10 - 60 unit/L LAB CHEMISTRY METHOD 07/30/2024 12:56 PM [facility] AST (SGOT) 12 10 - 42 unit/L LAB CHEMISTRY METHOD 07/30/2024 12:56 PM EST [facility] Alkaline Phosphatase 80 42 - 121 unit/L LAB CHEMISTRY METHOD 07/30/2024 12:56 PM [facility] Blood Venous blood specimen / Unknown Venipuncture / Unknown 07/30/2024 11:52 AM EST 07/30/2024 12:28 PM EST Jonny Mathur MD LAB BLOOD ORDERABLES Final Re sult [facility] [address] [place] [address], [place] [phone] * (ABNORMAL) POCT Glucose, blood (07/30/2024 11:22 AM EST) Glucose POCT 182(H) 70 - 100 mg/dL 07/30/2024 11:25 AM EST [facility] Blood Capillary blood specimen / Unknown 07/30/2024 11:22 AM EST 07/30/2024 11:25 AM EST Jonny Mathur MD LAB POINT OF CARE TE ST DOCKED DEVICE UNSOLICITED RESULTS Final Result [facility] [address] [place] [address], [place] [phone] * (ABNORMAL) POCT Glucose, blood (07/30/2024 7:47 AM EST) Glucose POCT 173(H) 70 - 100 mg/dL 07/30/2024 7:48 AM EST [facility] Blood Capillary blood specimen / Unknown 07/30/2024 7:47 AM EST 07/30/2024 7:49 AM EST Jonny Mathur MD LAB POINT OF CARE TE ST DOCKED DEVICE UNSOLICITED RESULTS Final Result Performing Organization Address City/[facility]/ZIP Co de Phone Number [facility] [address] [place] [address], [place] [phone] * (ABNORMAL) CBC - Every 3 Days (07/30/2024 6:10 AM EST) WBC 8.0 4.8 - 10.8 K/[facility] LAB HEMETOLOGY METHOD 07/30/2024 6:55 AM EST [facility] RBC 2.90(L) 3.80 - 4.80 M/mcL LAB HEMETOLOGY METHOD 07/30/2024 6:55 AM EST [facility] Hemoglobin 7.2(L) 11.5 - 16.0 g/dL LAB HEMETOLOGY METHOD 07/30/2024 6:55 AM [facility] Hematocrit 23.9(L) 35.0 - 47.0 % LAB HEMETOLOGY METHOD 07/30/2024 6:55 AM [facility] MCV 83.6 79.0 - 98.0 FL LAB HEMETOLOGY METHOD 07/30/2024 6:55 AM [facility] MCH 25.2(L) 27.0 - 32.0 pcg LAB HEMETOLOGY METHOD 07/30/2024 6:55 AM [facility] MCHC 30.1(L) 32.0 - 37.0 g/dL LAB HEMETOLOGY METHOD 07/30/2024 6:55 AM [facility] RDW 22.9(H) 11.0 - 15.0 % LAB HEMETOLOGY METHOD 07/30/2024 6:55 AM [facility] Platelets 176 130 - 400 K/mcL LAB HEMETOLOGY METHOD 07/30/2024 6:55 AM [facility] MPV 10.7 7.0 - 11.0 FL LAB HEMETOLOGY METHOD 07/30/2024 6:55 AM [facility] NRBC 0.0 <1.0 % LAB HEMETOLOGY METHOD 07/30/2024 6:55 AM [facility] NRBC Absolute 0.00 <0.10 K/mcL LAB HEMETOLOGY METHOD 07/30/2024 6:55 AM [facility] Blood Venous blood specimen / Unknown Venipuncture / Unknown 07/30/2024 6:10 AM EST 07/30/2024 6:25 AM EST [facility] [employer] [facility] LAB BLOOD ORDERABLES Final R esult [facility] [address] [place] [address], [place] [phone] * (ABNORMAL) Heparin and low molecular weight anti Xa level (07/30/2024 6:10 AM EST) Heparin Anti-Xa 1.16(H) 0.30 - 0.70 I Unit/mL LAB COAGULATION METHOD 07/30/2024 6:53 AM EST [facility] Blood Venous blood specimen / Unknown Venipuncture / Unknown 07/30/2024 6:10 AM EST 07/30/2024 6:26 AM EST Narrative [facility] - 07/30/2024 6:53 AM EST Therapeutic range listed is for Unfractionated Heparin. LMW Heparin therapeutic range: 0.50-1.20 IU/mL us Jonny Mathur MD LAB BLOOD ORDERABLES Final Re sult [facility] [address] [place] [address], [place] [phone] * (ABNORMAL) POCT Glucose, blood (07/29/2024 8:11 PM EST) [facility] Signature Glucose POCT 321(H) 70 - 100 mg/dL 07/29/2024 8:19 PM EST [facility] Blood Capillary blood specimen / Unknown 07/29/2024 8:11 PM EST 07/29/2024 8:20 PM EST us Jonny Mathur MD LAB POINT OF CARE TE ST DOCKED DEVICE UNSOLICITED RESULTS Final Result [facility] [address] [place] [address], [place] [phone] * (ABNORMAL) POCT Glucose, blood (07/29/2024 4:19 PM EST) Glucose POCT 267(H) 70 - 100 mg/dL 07/29/2024 4:21 PM EST [facility] Blood Capillary blood specimen / Unknown 07/29/2024 4:19 PM EST 07/29/2024 4:22 PM EST us Jonny Mathur MD LAB POINT OF CARE TE ST DOCKED DEVICE UNSOLICITED RESULTS Final Result [facility] [address] [place] [address], [place] [phone] * Hepatitis B surface antigen with reflex to confirmation (07/29/2024 11:51 AM EST) Hepatitis B Surface Ag Negative Negative LAB CHEMISTRY METHOD 07/29/2024 3:12 PM EST [facility] Blood Venous blood specimen / Unknown Venipuncture / Unknown 07/29/2024 11:51 AM EST 07/29/2024 1:08 PM EST Narrative [facility] - 07/29/2024 3:12 PM EST Over the counter supplements containing high doses of biotin may interfere with this assay. ??If interference is suspected, patients shoud be retested after refraining from biotin supplements for 72 hours. us Jonny Mathur MD LAB BLOOD ORDERABLES Final Re sult [facility] [address] [place] [address], [place] [phone] * (ABNORMAL) POCT Glucose, blood (07/29/2024 11:23 AM EST) Glucose POCT 108(H) 70 - 100 mg/dL 07/29/2024 11:30 AM EST [facility] Blood Capillary blood specimen / Unknown 07/29/2024 11:23 AM EST 07/29/2024 11:31 AM EST us Jonny Mathur MD LAB POINT OF CARE TE ST DOCKED DEVICE UNSOLICITED RESULTS Final Result Performing Organization Address City/[facility]/ZIP Co de Phone Number [facility] [address] [place] [address], [place] [phone] * Heparin and low molecular weight anti Xa level (07/29/2024 5:54 AM EST) Heparin Anti-Xa 0.61 0.30 - 0.70 I Unit/mL LAB COAGULATION METHOD 07/29/2024 6:54 AM EST [facility] Blood Venous blood specimen / Unknown Venipuncture / Unknown 07/29/2024 5:54 AM EST 07/29/2024 6:34 AM EST [facility] - 07/29/2024 6:54 AM EST Therapeutic range listed is for Unfractionated Heparin. LMW Heparin therapeutic range: 0.50-1.20 IU/mL Jonny Mathur MD LAB BLOOD ORDERABLES Final Re sult Performing Organization Address City/[facility]/ZIP Co de Phone Number [facility] [address] [place] [address], [place] [phone] * (ABNORMAL) CBC auto differential (07/29/2024 5:54 AM EST) WBC 7.3 4.8 - 10.8 K/mcL LAB HEMETOLOGY METHOD 07/29/2024 6:55 AM [facility] RBC 2.60(L) 3.80 - 4.80 M/mcL LAB HEMETOLOGY METHOD 07/29/2024 6:55 AM [facility] Hemoglobin 6.7(L) 11.5 - 16.0 g/dL LAB HEMETOLOGY METHOD 07/29/2024 6:55 AM [facility] Hematocrit 21.7(L) 35.0 - 47.0 % LAB HEMETOLOGY METHOD 07/29/2024 6:55 AM [facility] MCV 82.8 79.0 - 98.0 FL LAB HEMETOLOGY METHOD 07/29/2024 6:55 AM [facility] MCH 25.6(L) 27.0 - 32.0 pcg LAB HEMETOLOGY METHOD 07/29/2024 6:55 AM [facility] MCHC 30.9(L) 32.0 - 37.0 g/dL LAB HEMETOLOGY METHOD 07/29/2024 6:55 AM [facility] RDW 23.1(H) 11.0 - 15.0 % LAB HEMETOLOGY METHOD 07/29/2024 6:55 AM [facility] Platelets 146 130 - 400 K/mcL LAB HEMETOLOGY METHOD 07/29/2024 6:55 AM [facility] MPV 10.7 7.0 - 11.0 FL LAB HEMETOLOGY METHOD 07/29/2024 6:55 AM [facility] NRBC 0.0 <1.0 % LAB HEMETOLOGY METHOD 07/29/2024 6:55 AM [facility] NRBC Absolute 0.00 <0.10 K/mcL LAB HEMETOLOGY METHOD 07/29/2024 6:55 AM [facility] Neutrophils Relative 83.4 % LAB HEMETOLOGY METHOD 07/29/2024 6:55 AM [facility] Lymphocytes Relative 8.2 % LAB HEMETOLOGY METHOD 07/29/2024 6:55 AM [facility] Monocytes Relative 6.1 % LAB HEMETOLOGY METHOD 07/29/2024 6:55 AM [facility] Eosinophils Relative 0.3 % LAB HEMETOLOGY METHOD 07/29/2024 6:55 AM [facility] Basophils Relative 0.1 % LAB HEMETOLOGY METHOD 07/29/2024 6:55 AM [facility] Immature Granulocytes Relative 1.9 % LAB HEMETOLOGY METHOD 07/29/2024 6:55 AM EST [facility] Neutrophils Absolute 6.11 1.50 - 7.00 K/[facility] LAB HEMETOLOGY METHOD 07/29/2024 6:55 AM [facility] Lymphocytes Absolute 0.60(L) 1.00 - 5.00 K/mcL LAB HEMETOLOGY METHOD 07/29/2024 6:55 AM EST [facility] Monocytes Absolute 0.45 0.20 - 1.00 K/mcL LAB HEMETOLOGY METHOD 07/29/2024 6:55 AM [facility] Eosinophils Absolute 0.02 0.00 - 0.50 K/[facility] LAB HEMETOLOGY METHOD 07/29/2024 6:55 AM [facility] Basophils Absolute 0.01 0.00 - 0.20 K/mcL LAB HEMETOLOGY METHOD 07/29/2024 6:55 AM EST [facility] Immature Granulocytes Absolute 0.14(H) 0.00 - 0.03 K/mcL LAB HEMETOLOGY METHOD 07/29/2024 6:55 AM [facility] Blood Venous blood specimen / Unknown Venipuncture / Unknown 07/29/2024 5:54 AM EST 07/29/2024 6:34 AM EST us Jonny Mathur MD LAB BLOOD ORDERABLES Final Re sult [facility] [address] [place] [address], * (ABNORMAL) Basic metabolic panel (07/29/2024 5:54 AM EST) Sodium 131(L) 133 - 145 mmol/L LAB CHEMISTRY METHOD 07/29/2024 7:22 AM EST [facility] Potassium 4.2 3.5 - 5.5 mmol/L LAB CHEMISTRY METHOD 07/29/2024 7:22 AM [facility] Chloride 95(L) 96 - 110 mmol/L LAB CHEMISTRY METHOD 07/29/2024 7:22 AM [facility] CO2 31 21 - 32 mmol/L LAB CHEMISTRY METHOD 07/29/2024 7:22 AM [facility] Anion Gap 5 3 - 11 LAB CHEMISTRY METHOD 07/29/2024 7:22 AM [facility] Glucose 180(H) 70 - 100 mg/dL LAB CHEMISTRY METHOD 07/29/2024 7:22 AM [facility] BUN 49(H) 5 - 25 mg/dL LAB CHEMISTRY METHOD 07/29/2024 7:22 AM [facility] Creatinine 3.73(H) 0.50 - 1.10 mg/dL LAB CHEMISTRY METHOD 07/29/2024 7:22 AM [facility] eGFR 12(L) >=60 mL/min/1. 73m2 LAB CHEMISTRY METHOD 07/29/2024 7:22 AM [facility] Comment:Calculation based on the??Chronic Kidney Disease Epidemiology Collaboration (CKD-EPI) equation refit??without adjustment for race. BUN/Creatinine Ratio 13.1 LAB CHEMISTRY METHOD 07/29/2024 7:22 AM [facility] Calcium 7.8(L) 8.5 - 10.5 mg/dL LAB CHEMISTRY METHOD 07/29/2024 7:22 AM [facility] Blood Venous blood specimen / Unknown Venipuncture / Unknown 07/29/2024 5:54 AM EST 07/29/2024 6:34 AM EST us Jonny Mathur MD LAB BLOOD ORDERABLES Final Re sult [facility] [address] [place] [address], [place] [phone] * Heparin and low molecular weight anti Xa level (07/28/2024 11:42 PM EST) Heparin Anti-Xa 0.65 0.30 - 0.70 I Unit/mL LAB COAGULATION METHOD 07/29/2024 12:10 AM EST [facility] Blood Venous blood specimen / Unknown Venipuncture / Unknown 07/28/2024 11:42 PM EST 07/28/2024 11:52 PM EST Narrative [facility] - 07/29/2024 12:10 AM EST Therapeutic range listed is for Unfractionated Heparin. LMW Heparin therapeutic range: 0.50-1.20 IU/mL us Jonny Mathur MD LAB BLOOD ORDERABLES Final Re sult Performing Organization Address [facility]/ZIP Co de Phone Number [facility] [address] [place] [address], [place] [phone] * (ABNORMAL) Heparin and low molecular weight anti Xa level (07/28/2024 7:46 PM EST) Heparin Anti-Xa 1.05(H) 0.30 - 0.70 I Unit/mL LAB COAGULATION METHOD 07/28/2024 9:19 PM EST [facility] Blood Venous blood specimen / Unknown Venipuncture / Unknown 07/28/2024 7:46 PM EST 07/28/2024 9:09 PM EST Narrative [facility] - 07/28/2024 9:19 PM EST Therapeutic range listed is for Unfractionated Heparin. LMW Heparin therapeutic range: 0.50-1.20 IU/mL us Jonny Mathur MD LAB BLOOD ORDERABLES Final Re sult Performing Organization Address City/[facility]/ZIP Co de Phone Number [facility] [address] [place] [address], [place] [phone] * (ABNORMAL) POCT Glucose, blood (07/28/2024 7:41 PM EST) Glucose POCT 269(H) 70 - 100 mg/dL 07/28/2024 7:41 PM EST [facility] Blood Capillary blood specimen / Unknown 07/28/2024 7:41 PM EST 07/28/2024 7:43 PM EST us Jonny Mathur MD LAB POINT OF CARE TE ST DOCKED DEVICE UNSOLICITED RESULTS Final Result [facility] [address] [place] [address], [place] [phone] * (ABNORMAL) POCT Glucose, blood (07/28/2024 4:54 PM EST) [facility] Glucose POCT 258(H) 70 - 100 mg/dL 07/28/2024 4:56 PM EST [facility] Blood Capillary blood specimen / Unknown 07/28/2024 4:54 PM EST 07/28/2024 4:57 PM EST us Jonny Mathur MD LAB POINT OF CARE TE ST DOCKED DEVICE UNSOLICITED RESULTS Final Result Performing Organization Address City/[facility]/ZIP Co de Phone Number [facility] [address] [place] [address], [place] [phone] * Hepatitis B core antibody IgM (07/28/2024 12:19 PM EST) [facility] Hep B Core IgM Negative Negative LAB CHEMISTRY METHOD 07/28/2024 3:22 PM EST [facility] Blood Venous blood specimen / Unknown Venipuncture / Unknown 07/28/2024 12:19 PM EST 07/28/2024 12:35 PM EST Narrative [facility] - 07/28/2024 3:22 PM EST Over the counter supplements containing high doses of biotin may interfere with this assay. ??If interference is suspected, patients shoud be retested after refraining from biotin supplements for 72 hours. us Miguel Quiles MD LAB BLOOD ORDERABLES Final Res ult Performing Organization Address [facility] Co de Phone Number [facility] [address] [place] [address], [place] [phone] * Hepatitis B surface antibody (07/28/2024 12:19 PM EST) [facility] Hepatitis B Surface Ab Negative Negative LAB CHEMISTRY METHOD 07/28/2024 1:40 PM EST [facility] Hepatitis B Surface Ab Quantitative <3.1 mIU/mL LAB CHEMISTRY METHOD 07/28/2024 1:40 PM EST [facility] Blood Venous blood specimen / Unknown Venipuncture / Unknown 07/28/2024 12:19 PM EST 07/28/2024 12:35 PM EST Narrative [facility] - 07/28/2024 1:40 PM EST >=10 mIU/mL is considered to be consistent with immunity. us Miguel Quiles MD LAB BLOOD ORDERABLES Final Res ult Performing Organization Address [facility] de Phone Number [facility] [address] [place] [address], [place] [phone] * (ABNORMAL) POCT Glucose, blood (07/28/2024 11:02 AM EST) [facility] Glucose POCT 220(H) 70 - 100 mg/dL 07/28/2024 11:04 AM EST [facility] Blood Capillary blood specimen / Unknown 07/28/2024 11:02 AM EST 07/28/2024 11:05 AM EST us Jonny Mathur MD LAB POINT OF CARE TE ST DOCKED DEVICE UNSOLICITED RESULTS Final Result Performing Organization Address [facility] Co de Phone Number [facility] [address] [place] [address], * (ABNORMAL) CBC auto differential (07/28/2024 9:51 AM EST) [facility] WBC 13.0(H) 4.8 - 10.8 K/mcL LAB HEMETOLOGY METHOD 07/28/2024 12:32 PM [facility] RBC 3.10(L) 3.80 - 4.80 M/mcL LAB HEMETOLOGY METHOD 07/28/2024 12:32 PM [facility] Hemoglobin 8.0(L) 11.5 - 16.0 g/dL LAB HEMETOLOGY METHOD 07/28/2024 12:32 PM [facility] Hematocrit 26.5(L) 35.0 - 47.0 % LAB HEMETOLOGY METHOD 07/28/2024 12:32 PM [facility] MCV 84.9 79.0 - 98.0 FL LAB HEMETOLOGY METHOD 07/28/2024 12:32 PM [facility] MCH 25.6(L) 27.0 - 32.0 pcg LAB HEMETOLOGY METHOD 07/28/2024 12:32 PM [facility] MCHC 30.2(L) 32.0 - 37.0 g/dL LAB HEMETOLOGY METHOD 07/28/2024 12:32 PM [facility] RDW 22.8(H) 11.0 - 15.0 % LAB HEMETOLOGY METHOD 07/28/2024 12:32 PM [facility] Platelets 158 130 - 400 K/mcL LAB HEMETOLOGY METHOD 07/28/2024 12:32 PM [facility] MPV 11.5(H) 7.0 - 11.0 FL LAB HEMETOLOGY METHOD 07/28/2024 12:32 PM [facility] NRBC 0.0 <1.0 % LAB HEMETOLOGY METHOD 07/28/2024 12:32 PM [facility] NRBC Absolute 0.00 <0.10 K/mcL LAB HEMETOLOGY METHOD 07/28/2024 12:32 PM [facility] Neutrophils Relative 86.3 % LAB HEMETOLOGY METHOD 07/28/2024 12:32 PM [facility] Lymphocytes Relative 5.8 % LAB HEMETOLOGY METHOD 07/28/2024 12:32 PM [facility] Monocytes Relative 4.8 % LAB HEMETOLOGY METHOD 07/28/2024 12:32 PM [facility] Eosinophils Relative 1.7 % LAB HEMETOLOGY METHOD 07/28/2024 12:32 PM [facility] Basophils Relative 0.1 % LAB HEMETOLOGY METHOD 07/28/2024 12:32 PM [facility] Immature Granulocytes Relative 1.3 % LAB HEMETOLOGY METHOD 07/28/2024 12:32 PM [facility] Neutrophils Absolute 11.22(H) 1.50 - 7.00 K/mcL LAB HEMETOLOGY METHOD 07/28/2024 12:32 PM [facility] Lymphocytes Absolute 0.76(L) 1.00 - 5.00 K/mcL LAB HEMETOLOGY METHOD 07/28/2024 12:32 PM [facility] Monocytes Absolute 0.63 0.20 - 1.00 K/mcL LAB HEMETOLOGY METHOD 07/28/2024 12:32 PM [facility] Eosinophils Absolute 0.22 0.00 - 0.50 K/mcL LAB HEMETOLOGY METHOD 07/28/2024 12:32 PM [facility] Basophils Absolute 0.01 0.00 - 0.20 K/mcL LAB HEMETOLOGY METHOD 07/28/2024 12:32 PM [facility] Immature Granulocytes Absolute 0.17(H) 0.00 - 0.03 K/mcL LAB HEMETOLOGY METHOD 07/28/2024 12:32 PM [facility] Blood Venous blood specimen / Unknown Venipuncture / Unknown 07/28/2024 9:51 AM EST 07/28/2024 12:19 PM EST us Jonny Mathur MD LAB BLOOD ORDERABLES Final Re sult [facility] [address] [place] [address], [place] [phone] * (ABNORMAL) Basic metabolic panel (07/28/2024 9:51 AM EST) Sodium 134 133 - 145 mmol/L LAB CHEMISTRY METHOD 07/28/2024 1:16 PM [facility] Potassium 4.0 3.5 - 5.5 mmol/L LAB CHEMISTRY METHOD 07/28/2024 1:16 PM [facility] Chloride 95(L) 96 - 110 mmol/L LAB CHEMISTRY METHOD 07/28/2024 1:16 PM [facility] CO2 29 21 - 32 mmol/L LAB CHEMISTRY METHOD 07/28/2024 1:16 PM [facility] Anion Gap 10 3 - 11 LAB CHEMISTRY METHOD 07/28/2024 1:16 PM [facility] Glucose 230(H) 70 - 100 mg/dL LAB CHEMISTRY METHOD 07/28/2024 1:16 PM [facility] BUN 32(H) 5 - 25 mg/dL LAB CHEMISTRY METHOD 07/28/2024 1:16 PM [facility] Creatinine 2.82(H) 0.50 - 1.10 mg/dL LAB CHEMISTRY METHOD 07/28/2024 1:16 PM [facility] eGFR 16(L) >=60 mL/min/1. 73m2 LAB CHEMISTRY METHOD 07/28/2024 1:16 PM EST [facility] Comment:Calculation based on the??Chronic Kidney Disease Epidemiology Collaboration (CKD-EPI) equation refit??without adjustment for race. BUN/Creatinine Ratio 11.3 LAB CHEMISTRY METHOD 07/28/2024 1:16 PM EST [facility] Calcium 7.9(L) 8.5 - 10.5 mg/dL LAB CHEMISTRY METHOD 07/28/2024 1:16 PM EST [facility] Blood Venous blood specimen / Unknown Venipuncture / Unknown 07/28/2024 9:51 AM EST 07/28/2024 12:18 PM EST us Jonny Mathur MD LAB BLOOD ORDERABLES Final Re sult Performing Organization Address [facility]/ZIP Co de Phone Number [facility] [address] [place] [address], [place] [phone] * (ABNORMAL) Heparin and low molecular weight anti Xa level (07/28/2024 9:51 AM EST) Heparin Anti-Xa 0.16(L) 0.30 - 0.70 I Unit/mL LAB COAGULATION METHOD 07/28/2024 12:37 PM EST [facility] Blood Venous blood specimen / Unknown Venipuncture / Unknown 07/28/2024 9:51 AM EST 07/28/2024 12:19 PM EST Narrative [facility] - 07/28/2024 12:37 PM EST Therapeutic range listed is for Unfractionated Heparin. LMW Heparin therapeutic range: 0.50-1.20 IU/mL us Jonny Mathur MD LAB BLOOD ORDERABLES Final Re sult Performing Organization Address [facility]/ZIP Co de Phone Number [facility] [address] [place] [address], [place] [phone] * (ABNORMAL) POCT Glucose, blood (07/28/2024 9:29 AM EST) Glucose POCT 214(H) 70 - 100 mg/dL 07/28/2024 10:23 AM EST [facility] Blood Capillary blood specimen / Unknown 07/28/2024 9:29 AM EST 07/28/2024 10:24 AM EST us Jonny Mathur MD LAB POINT OF CARE TE ST DOCKED DEVICE UNSOLICITED RESULTS Final Result Performing Organization Address City/[facility]/ZIP Co de Phone Number [facility] [address] [place] [address], [place] [phone] * Heparin and low molecular weight anti Xa level (07/28/2024 2:09 AM EST) Heparin Anti-Xa 0.39 0.30 - 0.70 I Unit/mL LAB COAGULATION METHOD 07/28/2024 2:28 AM EST [facility] Blood Venous blood specimen / Unknown Venipuncture / Unknown 07/28/2024 2:09 AM EST 07/28/2024 2:16 AM EST Narrative [facility] - 07/28/2024 2:28 AM EST Therapeutic range listed is for Unfractionated Heparin. LMW Heparin therapeutic range: 0.50-1.20 IU/mL us Jonny Mathur MD LAB BLOOD ORDERABLES Final Re sult [facility] [address] [place] [address], [place] [phone] * (ABNORMAL) Heparin and low molecular weight anti Xa level (07/27/2024 11:55 PM EST) Heparin Anti-Xa 0.22(L) 0.30 - 0.70 I Unit/mL LAB COAGULATION METHOD 07/28/2024 12:28 AM EST [facility] Blood Venous blood specimen / Unknown Venipuncture / Unknown 07/27/2024 11:55 PM EST 07/28/2024 12:20 AM EST Narrative [facility] - 07/28/2024 12:28 AM EST Therapeutic range listed is for Unfractionated Heparin. LMW Heparin therapeutic range: 0.50-1.20 IU/mL us Jonny Mathur MD LAB BLOOD ORDERABLES Final Re sult Performing Organization Address City/[facility]/ZIP Co de Phone Number [facility] [address] [place] [address], [place] [phone] * (ABNORMAL) Heparin and low molecular weight anti Xa level (07/27/2024 9:31 PM EST) Heparin Anti-Xa 1.11(H) 0.30 - 0.70 I Unit/mL LAB COAGULATION METHOD 07/27/2024 9:51 PM EST [facility] Blood Venous blood specimen / Unknown Venipuncture / Unknown 07/27/2024 9:31 PM EST 07/27/2024 9:37 PM EST Narrative [facility] - 07/27/2024 9:51 PM EST Therapeutic range listed is for Unfractionated Heparin. LMW Heparin therapeutic range: 0.50-1.20 IU/mL us Jonny Mathur MD LAB BLOOD ORDERABLES Final Re sult Performing Organization Address City/[facility]/ZIP Co de Phone Number [facility] [address] [place] [address], [place] [phone] * (ABNORMAL) POCT Glucose, blood (07/27/2024 8:12 PM EST) Glucose POCT 249(H) 70 - 100 mg/dL 07/27/2024 8:13 PM EST [facility] Blood Capillary blood specimen / Unknown 07/27/2024 8:12 PM EST 07/27/2024 8:14 PM EST us Jonny Mathur MD LAB POINT OF CARE TE ST DOCKED DEVICE UNSOLICITED RESULTS Final Result Performing Organization Address City/[facility]/ZIP Co de Phone Number [facility] [address] [place] [address], [place] [phone] * (ABNORMAL) POCT Glucose, blood (07/27/2024 4:34 PM EST) [facility] Glucose POCT 213(H) 70 - 100 mg/dL 07/27/2024 4:40 PM EST [facility] Blood Capillary blood specimen / Unknown 07/27/2024 4:34 PM EST 07/27/2024 4:41 PM EST us Jonny Mathur MD LAB POINT OF CARE TE ST DOCKED DEVICE UNSOLICITED RESULTS Final Result Performing Organization Address [facility]/ZIP Co de Phone Number [facility] [address] [place] [address], [place] [phone] * (ABNORMAL) Complete blood count (07/27/2024 3:25 PM EST) [facility] WBC 17.5(H) 4.8 - 10.8 K/mcL LAB HEMETOLOGY METHOD 07/27/2024 3:46 PM EST [facility] RBC 3.30(L) 3.80 - 4.80 M/mcL LAB HEMETOLOGY METHOD 07/27/2024 3:46 PM EST [facility] Hemoglobin 8.3(L) 11.5 - 16.0 g/dL LAB HEMETOLOGY METHOD 07/27/2024 3:46 PM EST [facility] Hematocrit 27.7(L) 35.0 - 47.0 % LAB HEMETOLOGY METHOD 07/27/2024 3:46 PM EST [facility] MCV 83.7 79.0 - 98.0 FL LAB HEMETOLOGY METHOD 07/27/2024 3:46 PM EST [facility] MCH 25.1(L) 27.0 - 32.0 pcg LAB HEMETOLOGY METHOD 07/27/2024 3:46 PM EST [facility] MCHC 30.0(L) 32.0 - 37.0 g/dL LAB HEMETOLOGY METHOD 07/27/2024 3:46 PM EST [facility] RDW 22.5(H) 11.0 - 15.0 % LAB HEMETOLOGY METHOD 07/27/2024 3:46 PM EST [facility] Platelets 147 130 - 400 K/mcL LAB HEMETOLOGY METHOD 07/27/2024 3:46 PM [facility] MPV 10.8 7.0 - 11.0 FL LAB HEMETOLOGY METHOD 07/27/2024 3:46 PM EST [facility] NRBC 0.0 <1.0 % LAB HEMETOLOGY METHOD 07/27/2024 3:46 PM EST [facility] NRBC Absolute 0.00 <0.10 K/mcL LAB HEMETOLOGY METHOD 07/27/2024 3:46 PM [facility] Blood Venous blood specimen / Unknown Venipuncture / Unknown 07/27/2024 3:25 PM EST 07/27/2024 3:29 PM EST us Jonny Mathur MD LAB BLOOD ORDERABLES Final Re sult [facility] [address] [place] [address], * (ABNORMAL) Heparin and low molecular weight anti Xa level (07/27/2024 1:42 PM EST) Heparin Anti-Xa <0.04(L) 0.30 - 0.70 I Unit/mL LAB COAGULATION METHOD 07/27/2024 2:08 PM EST [facility] Blood Venous blood specimen / Unknown Venipuncture / Unknown 07/27/2024 1:42 PM EST 07/27/2024 1:52 PM EST Narrative [facility] - 07/27/2024 2:08 PM EST Therapeutic range listed is for Unfractionated Heparin. LMW Heparin therapeutic range: 0.50-1.20 IU/mL us Jonny Mathur MD LAB BLOOD ORDERABLES Final Re sult [facility] [address] [place] [address], [place] [phone] * (ABNORMAL) Basic metabolic panel (07/27/2024 1:42 PM EST) Sodium 131(L) 133 - 145 mmol/L LAB CHEMISTRY METHOD 07/27/2024 2:30 PM [facility] Potassium 3.8 3.5 - 5.5 mmol/L LAB CHEMISTRY METHOD 07/27/2024 2:30 PM [facility] Chloride 97 96 - 110 mmol/L LAB CHEMISTRY METHOD 07/27/2024 2:30 PM [facility] CO2 28 21 - 32 mmol/L LAB CHEMISTRY METHOD 07/27/2024 2:30 PM [facility] Anion Gap 6 3 - 11 LAB CHEMISTRY METHOD 07/27/2024 2:30 PM [facility] Glucose 150(H) 70 - 100 mg/dL LAB CHEMISTRY METHOD 07/27/2024 2:30 PM [facility] BUN 17 5 - 25 mg/dL LAB CHEMISTRY METHOD 07/27/2024 2:30 PM [facility] Creatinine 1.53(H) 0.50 - 1.10 mg/dL LAB CHEMISTRY METHOD 07/27/2024 2:30 PM [facility] eGFR 34(L) >=60 mL/min/1. 73m2 LAB CHEMISTRY METHOD 07/27/2024 2:30 PM EST [facility] Comment:Calculation based on the??Chronic Kidney Disease Epidemiology Collaboration (CKD-EPI) equation refit??without adjustment for race. BUN/Creatinine Ratio 11.1 LAB CHEMISTRY METHOD 07/27/2024 2:30 PM EST [facility] Calcium 7.9(L) 8.5 - 10.5 mg/dL LAB CHEMISTRY METHOD 07/27/2024 2:30 PM EST [facility] Blood Venous blood specimen / Unknown Venipuncture / Unknown 07/27/2024 1:42 PM EST 07/27/2024 1:52 PM EST us Jonny Mathur MD LAB BLOOD ORDERABLES Final Re sult Performing Organization Address [facility]/ZIP Co de Phone Number [facility] [address] [place] [address], [place] [phone] * (ABNORMAL) POCT Glucose, blood (07/27/2024 11:54 AM EST) Glucose POCT 126(H) 70 - 100 mg/dL 07/27/2024 11:57 AM EST [facility] Blood Capillary blood specimen / Unknown 07/27/2024 11:54 AM EST 07/27/2024 11:58 AM EST us Jonny Mathur MD LAB POINT OF CARE TE ST DOCKED DEVICE UNSOLICITED RESULTS Final Result Performing Organization Address City/[facility]/ZIP Co de Phone Number [facility] [address] [place] [address], [place] [phone] * (ABNORMAL) CBC auto differential (07/27/2024 6:27 AM EST) WBC 12.4(H) 4.8 - 10.8 K/mcL LAB HEMETOLOGY METHOD 07/27/2024 7:55 AM EST [facility] RBC 3.10(L) 3.80 - 4.80 M/mcL LAB HEMETOLOGY METHOD 07/27/2024 7:55 AM [facility] Hemoglobin 7.7(L) 11.5 - 16.0 g/dL LAB HEMETOLOGY METHOD 07/27/2024 7:55 AM [facility] Hematocrit 25.5(L) 35.0 - 47.0 % LAB HEMETOLOGY METHOD 07/27/2024 7:55 AM [facility] MCV 83.3 79.0 - 98.0 FL LAB HEMETOLOGY METHOD 07/27/2024 7:55 AM [facility] MCH 25.2(L) 27.0 - 32.0 pcg LAB HEMETOLOGY METHOD 07/27/2024 7:55 AM [facility] MCHC 30.2(L) 32.0 - 37.0 g/dL LAB HEMETOLOGY METHOD 07/27/2024 7:55 AM [facility] RDW 22.4(H) 11.0 - 15.0 % LAB HEMETOLOGY METHOD 07/27/2024 7:55 AM [facility] Platelets 143 130 - 400 K/mcL LAB HEMETOLOGY METHOD 07/27/2024 7:55 AM [facility] MPV 11.2(H) 7.0 - 11.0 FL LAB HEMETOLOGY METHOD 07/27/2024 7:55 AM [facility] NRBC 0.0 <1.0 % LAB HEMETOLOGY METHOD 07/27/2024 7:55 AM [facility] NRBC Absolute 0.00 <0.10 K/mcL LAB HEMETOLOGY METHOD 07/27/2024 7:55 AM [facility] Neutrophils Relative 82.8 % LAB HEMETOLOGY METHOD 07/27/2024 7:55 AM [facility] Lymphocytes Relative 10.0 % LAB HEMETOLOGY METHOD 07/27/2024 7:55 AM [facility] Monocytes Relative 4.8 % LAB HEMETOLOGY METHOD 07/27/2024 7:55 AM [facility] Eosinophils Relative 0.8 % LAB HEMETOLOGY METHOD 07/27/2024 7:55 AM [facility] Basophils Relative 0.1 % LAB HEMETOLOGY METHOD 07/27/2024 7:55 AM [facility] Immature Granulocytes Relative 1.5 % LAB HEMETOLOGY METHOD 07/27/2024 7:55 AM [facility] Neutrophils Absolute 10.27(H) 1.50 - 7.00 K/mcL LAB HEMETOLOGY METHOD 07/27/2024 7:55 AM [facility] Lymphocytes Absolute 1.24 1.00 - 5.00 K/mcL LAB HEMETOLOGY METHOD 07/27/2024 7:55 AM [facility] Monocytes Absolute 0.59 0.20 - 1.00 K/mcL LAB HEMETOLOGY METHOD 07/27/2024 7:55 AM [facility] Eosinophils Absolute 0.10 0.00 - 0.50 K/mcL LAB HEMETOLOGY METHOD 07/27/2024 7:55 AM [facility] Basophils Absolute 0.01 0.00 - 0.20 K/mcL LAB HEMETOLOGY METHOD 07/27/2024 7:55 AM [facility] Immature Granulocytes Absolute 0.19(H) 0.00 - 0.03 K/mcL LAB HEMETOLOGY METHOD 07/27/2024 7:55 AM [facility] Blood Venous blood specimen / Unknown Venipuncture / Unknown 07/27/2024 6:27 AM EST 07/27/2024 7:41 AM EST Jonny Mathur MD LAB BLOOD ORDERABLES Final Re sult Performing Organization Address [facility]/ZIP Co de Phone Number [facility] [address] [place] [address], [place] [phone] * (ABNORMAL) Heparin and low molecular weight anti Xa level (07/27/2024 6:27 AM EST) Heparin Anti-Xa 0.74(H) 0.30 - 0.70 I Unit/mL LAB COAGULATION METHOD 07/27/2024 8:11 AM EST [facility] Blood Venous blood specimen / Unknown Venipuncture / Unknown 07/27/2024 6:27 AM EST 07/27/2024 7:41 AM EST [facility] - 07/27/2024 8:11 AM EST Therapeutic range listed is for Unfractionated Heparin. LMW Heparin therapeutic range: 0.50-1.20 IU/mL Jonny Mtahur MD LAB BLOOD ORDERABLES Final Re sult Performing Organization Address [facility]/ZIP Co de Phone Number [facility] [address] [place] [address], [place] [phone] * (ABNORMAL) CBC - Every 3 Days (07/27/2024 6:27 AM EST) WBC 12.4(H) 4.8 - 10.8 K/[facility] LAB HEMETOLOGY METHOD 07/27/2024 7:55 AM EST [facility] RBC 3.10(L) 3.80 - 4.80 M/[facility] HEMETOLOGY METHOD 07/27/2024 7:55 AM [facility] Hemoglobin 7.7(L) 11.5 - 16.0 g/dL LAB HEMETOLOGY METHOD 07/27/2024 7:55 AM [facility] Hematocrit 25.5(L) 35.0 - 47.0 % LAB HEMETOLOGY METHOD 07/27/2024 7:55 AM EST [facility] MCV 83.3 79.0 - 98.0 FL LAB HEMETOLOGY METHOD 07/27/2024 7:55 AM EST [facility] MCH 25.2(L) 27.0 - 32.0 pcg LAB HEMETOLOGY METHOD 07/27/2024 7:55 AM EST [facility] MCHC 30.2(L) 32.0 - 37.0 g/dL LAB HEMETOLOGY METHOD 07/27/2024 7:55 AM EST [facility] RDW 22.4(H) 11.0 - 15.0 % LAB HEMETOLOGY METHOD 07/27/2024 7:55 AM EST [facility] Platelets 143 130 - 400 K/mcL LAB HEMETOLOGY METHOD 07/27/2024 7:55 AM EST [facility] MPV 11.2(H) 7.0 - 11.0 FL LAB HEMETOLOGY METHOD 07/27/2024 7:55 AM EST [facility] NRBC 0.0 <1.0 % LAB HEMETOLOGY METHOD 07/27/2024 7:55 AM EST [facility] NRBC Absolute 0.00 <0.10 K/mcL LAB HEMETOLOGY METHOD 07/27/2024 7:55 AM EST [facility] Blood Venous blood specimen / Unknown Venipuncture / Unknown 07/27/2024 6:27 AM EST 07/27/2024 7:41 AM EST [facility] LAB BLOOD ORDERABLES Final R esult [facility] [address] [place] [address], * (ABNORMAL) Basic metabolic panel (07/27/2024 6:27 AM EST) Sodium 130(L) 133 - 145 mmol/L LAB CHEMISTRY METHOD 07/27/2024 8:43 AM [facility] Potassium 4.2 3.5 - 5.5 mmol/L LAB CHEMISTRY METHOD 07/27/2024 8:43 AM [facility] Chloride 93(L) 96 - 110 mmol/L LAB CHEMISTRY METHOD 07/27/2024 8:43 AM [facility] CO2 30 21 - 32 mmol/L LAB CHEMISTRY METHOD 07/27/2024 8:43 AM [facility] Anion Gap 7 3 - 11 LAB CHEMISTRY METHOD 07/27/2024 8:43 AM [facility] Glucose 182(H) 70 - 100 mg/dL LAB CHEMISTRY METHOD 07/27/2024 8:43 AM [facility] BUN 62(H) 5 - 25 mg/dL LAB CHEMISTRY METHOD 07/27/2024 8:43 AM [facility] Creatinine 3.88(H) 0.50 - 1.10 mg/dL LAB CHEMISTRY METHOD 07/27/2024 8:43 AM [facility] eGFR 11(L) >=60 mL/min/1. 73m2 LAB CHEMISTRY METHOD 07/27/2024 8:43 AM [facility] Comment:Calculation based on the??Chronic Kidney Disease Epidemiology Collaboration (CKD-EPI) equation refit??without adjustment for race. BUN/Creatinine Ratio 16.0 LAB CHEMISTRY METHOD 07/27/2024 8:43 AM [facility] Calcium 8.2(L) 8.5 - 10.5 mg/dL LAB CHEMISTRY METHOD 07/27/2024 8:43 AM [facility] Blood Venous blood specimen / Unknown Venipuncture / Unknown 07/27/2024 6:27 AM EST 07/27/2024 7:41 AM EST us Jonny Mathur MD LAB BLOOD ORDERABLES Final Re sult [facility] [address] [place] [address], [place] [phone] * (ABNORMAL) POCT Glucose, blood (07/26/2024 8:23 PM EST) Glucose POCT 189(H) 70 - 100 mg/dL 07/26/2024 8:24 PM EST [facility] Blood Capillary blood specimen / Unknown 07/26/2024 8:23 PM EST 07/26/2024 8:25 PM EST us Jonny Mathur MD LAB POINT OF CARE TE ST DOCKED DEVICE UNSOLICITED RESULTS Final Result Performing Organization Address [facility]/ZIP Co de Phone Number [facility] [address] [place] [address], [place] [phone] * (ABNORMAL) POCT Glucose, blood (07/26/2024 4:28 PM EST) Glucose POCT 192(H) 70 - 100 mg/dL 07/26/2024 4:29 PM EST [facility] Blood Capillary blood specimen / Unknown 07/26/2024 4:28 PM EST 07/26/2024 4:30 PM EST us Jonny Mathur MD LAB POINT OF CARE TE ST DOCKED DEVICE UNSOLICITED RESULTS Final Result Performing Organization Address City/[facility]/ZIP Co de Phone Number [facility] [address] [place] [address], [place] [phone] * (ABNORMAL) POCT Glucose, blood (07/26/2024 11:15 AM EST) Glucose POCT 180(H) 70 - 100 mg/dL 07/26/2024 11:17 AM EST [facility] Blood Capillary blood specimen / Unknown 07/26/2024 11:15 AM EST 07/26/2024 11:18 AM EST us Jonny Mathur MD LAB POINT OF CARE TE ST DOCKED DEVICE UNSOLICITED RESULTS Final Result Performing Organization Address [facility]/ZIP Co de Phone Number [facility] [address] [place] [address], [place] [phone] * (ABNORMAL) POCT Glucose, blood (07/26/2024 8:08 AM EST) [facility] Glucose POCT 128(H) 70 - 100 mg/dL 07/26/2024 8:09 AM EST [facility] Blood Capillary blood specimen / Unknown 07/26/2024 8:08 AM EST 07/26/2024 8:10 AM EST us Jonny Mathur MD LAB POINT OF CARE TE ST DOCKED DEVICE UNSOLICITED RESULTS Final Result Performing Organization Address [facility] Phone [facility] [address] [place] [address], [place] [phone] * Heparin and low molecular weight anti Xa level (07/26/2024 6:06 AM EST) [facility] Heparin Anti-Xa 0.65 0.30 - 0.70 I Unit/mL LAB COAGULATION METHOD 07/26/2024 7:08 AM EST [facility] Blood Venous blood specimen / Unknown Venipuncture / Unknown 07/26/2024 6:06 AM EST 07/26/2024 6:19 AM EST Narrative [facility] - 07/26/2024 7:08 AM EST Therapeutic range listed is for Unfractionated Heparin. LMW Heparin therapeutic range: 0.50-1.20 IU/mL us Jonny Mathur MD LAB BLOOD ORDERABLES Final Re sult Performing Organization Address City/[facility]/ZIP Co de Phone Number [facility] [address] [place] [address], [place] [phone] * (ABNORMAL) POCT Glucose, blood (07/25/2024 9:22 PM EST) Glucose POCT 183(H) 70 - 100 mg/dL 07/25/2024 9:22 PM EST [facility] Blood Capillary blood specimen / Unknown 07/25/2024 9:22 PM EST 07/25/2024 9:23 PM EST us Jonny Mathur MD LAB POINT OF CARE TE ST DOCKED DEVICE UNSOLICITED RESULTS Final Result [facility] [address] [place] [address], [place] [phone] * (ABNORMAL) POCT Glucose, blood (07/25/2024 4:02 PM EST) Glucose POCT 194(H) 70 - 100 mg/dL 07/25/2024 4:02 PM EST [facility] Blood Capillary blood specimen / Unknown 07/25/2024 4:02 PM EST 07/25/2024 4:03 PM EST us Jonny Mathur MD LAB POINT OF CARE TE ST DOCKED DEVICE UNSOLICITED RESULTS Final Result [facility] [address] [place] [address], [place] [phone] * (ABNORMAL) POCT Glucose, blood (07/25/2024 2:56 PM EST) Glucose POCT 143(H) 70 - 100 mg/dL 07/25/2024 2:56 PM EST [facility] Blood Capillary blood specimen / Unknown 07/25/2024 2:56 PM EST 07/25/2024 2:58 PM EST Jonny Mathur MD LAB POINT OF CARE TE ST DOCKED DEVICE UNSOLICITED RESULTS Final Result Performing Organization Address City/[facility]/ZIP Co de Phone Number [facility] [address] [place] [address], [place] [phone] * (ABNORMAL) POCT Glucose, blood (07/25/2024 8:18 AM EST) Pathologist [facility] Glucose POCT 212(H) 70 - 100 mg/dL 07/25/2024 8:19 AM EST [facility] Blood Capillary blood specimen / Unknown 07/25/2024 8:18 AM EST 07/25/2024 8:20 AM EST Jonny Mathur MD LAB POINT OF CARE TE ST DOCKED DEVICE UNSOLICITED RESULTS Final Result Performing Organization Address [facility]/ZIP Co de Phone Number [facility] [address] [place] [address], [place] [phone] * (ABNORMAL) CBC auto differential (07/25/2024 5:35 AM EST) [facility] WBC 14.2(H) 4.8 - 10.8 K/[facility] LAB HEMETOLOGY METHOD 07/25/2024 7:21 AM [facility] RBC 3.10(L) 3.80 - 4.80 M/[facility] LAB HEMETOLOGY METHOD 07/25/2024 7:21 AM [facility] Hemoglobin 8.0(L) 11.5 - 16.0 g/dL LAB HEMETOLOGY METHOD 07/25/2024 7:21 AM [facility] Hematocrit 25.7(L) 35.0 - 47.0 % LAB HEMETOLOGY METHOD 07/25/2024 7:21 AM [facility] MCV 82.1 79.0 - 98.0 FL LAB HEMETOLOGY METHOD 07/25/2024 7:21 AM [facility] MCH 25.6(L) 27.0 - 32.0 pcg LAB HEMETOLOGY METHOD 07/25/2024 7:21 AM [facility] MCHC 31.1(L) 32.0 - 37.0 g/dL LAB HEMETOLOGY METHOD 07/25/2024 7:21 AM [facility] RDW 21.7(H) 11.0 - 15.0 % LAB HEMETOLOGY METHOD 07/25/2024 7:21 AM [facility] Platelets 158 130 - 400 K/mcL LAB HEMETOLOGY METHOD 07/25/2024 7:21 AM [facility] MPV 10.6 7.0 - 11.0 FL LAB HEMETOLOGY METHOD 07/25/2024 7:21 AM [facility] NRBC 0.0 <1.0 % LAB HEMETOLOGY METHOD 07/25/2024 7:21 AM [facility] LAB NRBC Absolute 0.00 <0.10 K/mcL LAB HEMETOLOGY METHOD 07/25/2024 7:21 AM [facility] LAB Neutrophils Relative 83.3 % LAB HEMETOLOGY METHOD 07/25/2024 7:21 AM [facility] LAB Lymphocytes Relative 8.9 % LAB HEMETOLOGY METHOD 07/25/2024 7:21 AM [facility] Monocytes Relative 6.3 % LAB HEMETOLOGY METHOD 07/25/2024 7:21 AM [facility] LAB Eosinophils Relative 0.6 % LAB HEMETOLOGY METHOD 07/25/2024 7:21 AM [facility] LAB Basophils Relative 0.1 % LAB HEMETOLOGY METHOD 07/25/2024 7:21 AM [facility] LAB Immature Granulocytes Relative 0.8 % LAB HEMETOLOGY METHOD 07/25/2024 7:21 AM [facility] LAB Neutrophils Absolute 11.87(H) 1.50 - 7.00 K/mcL LAB HEMETOLOGY METHOD 07/25/2024 7:21 AM [facility] LAB Lymphocytes Absolute 1.26 1.00 - 5.00 K/mcL LAB HEMETOLOGY METHOD 07/25/2024 7:21 AM [facility] LAB Monocytes Absolute 0.89 0.20 - 1.00 K/mcL LAB HEMETOLOGY METHOD 07/25/2024 7:21 AM EST [facility] LAB Eosinophils Absolute 0.08 0.00 - 0.50 K/[facility] LAB HEMETOLOGY METHOD 07/25/2024 7:21 AM EST [facility] LAB Basophils Absolute 0.01 0.00 - 0.20 K/mcL LAB HEMETOLOGY METHOD 07/25/2024 7:21 AM [facility] LAB Immature Granulocytes Absolute 0.11(H) 0.00 - 0.03 K/mcL LAB HEMETOLOGY METHOD 07/25/2024 7:21 AM [facility] Blood Venous blood specimen / Unknown Venipuncture / Unknown 07/25/2024 5:35 AM EST 07/25/2024 6:48 AM EST [facility] LAB BLOOD ORDERABLES Final R esult [facility] [address] [place] [address], * Heparin and low molecular weight anti Xa level (07/25/2024 5:35 AM EST) Heparin Anti-Xa 0.61 0.30 - 0.70 I Unit/mL LAB COAGULATION METHOD 07/25/2024 7:17 AM EST [facility] Blood Venous blood specimen / Unknown Venipuncture / Unknown 07/25/2024 5:35 AM EST 07/25/2024 6:48 AM EST [facility] - 07/25/2024 7:17 AM EST Therapeutic range listed is for Unfractionated Heparin. LMW Heparin therapeutic range: 0.50-1.20 IU/mL us Lencho Stuart MD LAB BLOOD ORDERABLES Final R esult [facility] [address] [place] [address], * (ABNORMAL) Basic metabolic panel (07/25/2024 5:35 AM EST) Sodium 132(L) 133 - 145 mmol/L LAB CHEMISTRY METHOD 07/25/2024 7:57 AM [facility] Potassium 4.2 3.5 - 5.5 mmol/L LAB CHEMISTRY METHOD 07/25/2024 7:57 AM [facility] Chloride 94(L) 96 - 110 mmol/L LAB CHEMISTRY METHOD 07/25/2024 7:57 AM [facility] CO2 30 21 - 32 mmol/L LAB CHEMISTRY METHOD 07/25/2024 7:57 AM [facility] Anion Gap 8 3 - 11 LAB CHEMISTRY METHOD 07/25/2024 7:57 AM [facility] Glucose 194(H) 70 - 100 mg/dL LAB CHEMISTRY METHOD 07/25/2024 7:57 AM [facility] BUN 77(H) 5 - 25 mg/dL LAB CHEMISTRY METHOD 07/25/2024 7:57 AM [facility] Creatinine 3.91(H) 0.50 - 1.10 mg/dL LAB CHEMISTRY METHOD 07/25/2024 7:57 AM [facility] eGFR 11(L) >=60 mL/min/1. 73m2 LAB CHEMISTRY METHOD 07/25/2024 7:57 AM [facility] Comment:Calculation based on the??Chronic Kidney Disease Epidemiology Collaboration (CKD-EPI) equation refit??without adjustment for race. BUN/Creatinine Ratio 19.7 LAB CHEMISTRY METHOD 07/25/2024 7:57 AM EST [facility] Calcium 8.2(L) 8.5 - 10.5 mg/dL LAB CHEMISTRY METHOD 07/25/2024 7:57 AM EST [facility] Blood Venous blood specimen / Unknown Venipuncture / Unknown 07/25/2024 5:35 AM EST 07/25/2024 6:48 AM EST Lencho Stuart MD LAB BLOOD ORDERABLES Final R esult [facility] [address] [place] [address], [place] [phone] * (ABNORMAL) POCT Glucose, blood (07/24/2024 7:58 PM EST) Glucose POCT 228(H) 70 - 100 mg/dL 07/24/2024 7:58 PM EST [facility] Blood Capillary blood specimen / Unknown 07/24/2024 7:58 PM EST 07/24/2024 8:00 PM EST Lencho Stuart MD LAB POINT OF CARE TE ST DOCKED DEVICE UNSOLICITED RESULTS Final Result [facility] [address] [place] [address], [place] [phone] * (ABNORMAL) POCT Glucose, blood (07/24/2024 3:24 PM EST) Glucose POCT 239(H) 70 - 100 mg/dL 07/24/2024 3:25 PM EST [facility] POCT Comment RN Notified 07/24/2024 3:25 PM EST [facility] Blood Capillary blood specimen / Unknown 07/24/2024 3:24 PM EST 07/24/2024 3:26 PM EST us Lencho Stuart MD LAB POINT OF CARE TE ST DOCKED DEVICE UNSOLICITED RESULTS Final Result [facility] [address] [place] [address], [place] [phone] * (ABNORMAL) POCT Glucose, blood (07/24/2024 11:39 AM EST) Glucose POCT 260(H) 70 - 100 mg/dL 07/24/2024 11:40 AM EST [facility] POCT Comment RN Notified 07/24/2024 11:40 AM EST [facility] Blood Capillary blood specimen / Unknown 07/24/2024 11:39 AM EST 07/24/2024 11:41 AM EST us Lencho Stuart MD LAB POINT OF CARE TE ST DOCKED DEVICE UNSOLICITED RESULTS Final Result Performing Organization Address City/[facility] Co de Phone Number [facility] [address] [place] [address], [place] [phone] * (ABNORMAL) POCT Glucose, blood (07/24/2024 7:32 AM EST) Glucose POCT 301(H) 70 - 100 mg/dL 07/24/2024 7:33 AM EST [facility] POCT Comment RN Notified 07/24/2024 7:33 AM EST [facility] Blood Capillary blood specimen / Unknown 07/24/2024 7:32 AM EST 07/24/2024 7:34 AM EST us Lencho Stuart MD LAB POINT OF CARE TE ST DOCKED DEVICE UNSOLICITED RESULTS Final Result [facility] [address] [place] [address], * Heparin and low molecular weight anti Xa level (07/24/2024 6:48 AM EST) Pathologist [facility] Heparin Anti-Xa 0.60 0.30 - 0.70 I Unit/mL LAB COAGULATION METHOD 07/24/2024 7:29 AM EST [facility] Blood Venous blood specimen / Unknown Venipuncture / Unknown 07/24/2024 6:48 AM EST 07/24/2024 7:03 AM EST [facility] - 07/24/2024 7:29 AM EST Therapeutic range listed is for Unfractionated Heparin. LMW Heparin therapeutic range: 0.50-1.20 IU/mL [facility] LAB BLOOD ORDERABLES Final R esult Performing Organization Address [facility]/ZIP Co de Phone Number [facility] [address] [place] [address], * (ABNORMAL) CBC auto differential (07/24/2024 6:48 AM EST) [facility] WBC 13.1(H) 4.8 - 10.8 K/mcL LAB HEMETOLOGY METHOD 07/24/2024 7:30 AM [facility] RBC 3.10(L) 3.80 - 4.80 M/[facility] LAB HEMETOLOGY METHOD 07/24/2024 7:30 AM [facility] Hemoglobin 7.7(L) 11.5 - 16.0 g/dL LAB HEMETOLOGY METHOD 07/24/2024 7:30 AM [facility] Hematocrit 25.3(L) 35.0 - 47.0 % LAB HEMETOLOGY METHOD 07/24/2024 7:30 AM [facility] MCV 81.4 79.0 - 98.0 FL LAB HEMETOLOGY METHOD 07/24/2024 7:30 AM [facility] MCH 24.8(L) 27.0 - 32.0 pcg LAB HEMETOLOGY METHOD 07/24/2024 7:30 AM [facility] MCHC 30.4(L) 32.0 - 37.0 g/dL LAB HEMETOLOGY METHOD 07/24/2024 7:30 AM [facility] RDW 21.7(H) 11.0 - 15.0 % LAB HEMETOLOGY METHOD 07/24/2024 7:30 AM [facility] Platelets 174 130 - 400 K/mcL LAB HEMETOLOGY METHOD 07/24/2024 7:30 AM [facility] MPV 10.6 7.0 - 11.0 FL LAB HEMETOLOGY METHOD 07/24/2024 7:30 AM [facility] NRBC 0.0 <1.0 % LAB HEMETOLOGY METHOD 07/24/2024 7:30 AM [facility] NRBC Absolute 0.00 <0.10 K/mcL LAB HEMETOLOGY METHOD 07/24/2024 7:30 AM [facility] Neutrophils Relative 84.4 % LAB HEMETOLOGY METHOD 07/24/2024 7:30 AM [facility] Lymphocytes Relative 6.4 % LAB HEMETOLOGY METHOD 07/24/2024 7:30 AM [facility] Monocytes Relative 8.3 % LAB HEMETOLOGY METHOD 07/24/2024 7:30 AM [facility] Eosinophils Relative 0.0 % LAB HEMETOLOGY METHOD 07/24/2024 7:30 AM [facility] Basophils Relative 0.1 % LAB HEMETOLOGY METHOD 07/24/2024 7:30 AM [facility] Immature Granulocytes Relative 0.8 % LAB HEMETOLOGY METHOD 07/24/2024 7:30 AM EST [facility] Neutrophils Absolute 11.03(H) 1.50 - 7.00 K/[facility] LAB HEMETOLOGY METHOD 07/24/2024 7:30 AM EST [facility] Lymphocytes Absolute 0.83(L) 1.00 - 5.00 K/mcL LAB HEMETOLOGY METHOD 07/24/2024 7:30 AM EST [facility] Monocytes Absolute 1.08(H) 0.20 - 1.00 K/mcL LAB HEMETOLOGY METHOD 07/24/2024 7:30 AM [facility] Eosinophils Absolute 0.00 0.00 - 0.50 K/[facility] LAB HEMETOLOGY METHOD 07/24/2024 7:30 AM [facility] Basophils Absolute 0.01 0.00 - 0.20 K/mcL LAB HEMETOLOGY METHOD 07/24/2024 7:30 AM [facility] Immature Granulocytes Absolute 0.11(H) 0.00 - 0.03 K/[facility] LAB HEMETOLOGY METHOD 07/24/2024 7:30 AM [facility] Blood Venous blood specimen / Unknown Venipuncture / Unknown 07/24/2024 6:48 AM EST 07/24/2024 7:03 AM EST us [facility] LAB BLOOD ORDERABLES Final R esult [facility] [address] [place] [address], * (ABNORMAL) CBC - Every 3 Days (07/24/2024 6:48 AM EST) WBC 13.1(H) 4.8 - 10.8 K/mcL LAB HEMETOLOGY METHOD 07/24/2024 7:30 AM EST [facility] RBC 3.10(L) 3.80 - 4.80 M/mcL LAB HEMETOLOGY METHOD 07/24/2024 7:30 AM [facility] Hemoglobin 7.7(L) 11.5 - 16.0 g/dL LAB HEMETOLOGY METHOD 07/24/2024 7:30 AM [facility] Hematocrit 25.3(L) 35.0 - 47.0 % LAB HEMETOLOGY METHOD 07/24/2024 7:30 AM [facility] MCV 81.4 79.0 - 98.0 FL LAB HEMETOLOGY METHOD 07/24/2024 7:30 AM [facility] MCH 24.8(L) 27.0 - 32.0 pcg LAB HEMETOLOGY METHOD 07/24/2024 7:30 AM [facility] MCHC 30.4(L) 32.0 - 37.0 g/dL LAB HEMETOLOGY METHOD 07/24/2024 7:30 AM [facility] RDW 21.7(H) 11.0 - 15.0 % LAB HEMETOLOGY METHOD 07/24/2024 7:30 AM [facility] Platelets 174 130 - 400 K/mcL LAB HEMETOLOGY METHOD 07/24/2024 7:30 AM [facility] MPV 10.6 7.0 - 11.0 FL LAB HEMETOLOGY METHOD 07/24/2024 7:30 AM [facility] NRBC 0.0 <1.0 % LAB HEMETOLOGY METHOD 07/24/2024 7:30 AM [facility] NRBC Absolute 0.00 <0.10 K/mcL LAB HEMETOLOGY METHOD 07/24/2024 7:30 AM [facility] Blood Venous blood specimen / Unknown Venipuncture / Unknown 07/24/2024 6:48 AM EST 07/24/2024 7:03 AM EST us Lencho Stuart MD LAB BLOOD ORDERABLES Final R esult [facility] [address] [place] [address], * (ABNORMAL) Basic metabolic panel (07/24/2024 6:48 AM EST) Sodium 132(L) 133 - 145 mmol/L LAB CHEMISTRY METHOD 07/24/2024 8:38 AM EST [facility] Potassium 4.1 3.5 - 5.5 mmol/L LAB CHEMISTRY METHOD 07/24/2024 8:38 AM [facility] Chloride 94(L) 96 - 110 mmol/L LAB CHEMISTRY METHOD 07/24/2024 8:38 AM [facility] CO2 29 21 - 32 mmol/L LAB CHEMISTRY METHOD 07/24/2024 8:38 AM [facility] Anion Gap 9 3 - 11 LAB CHEMISTRY METHOD 07/24/2024 8:38 AM [facility] Glucose 286(H) 70 - 100 mg/dL LAB CHEMISTRY METHOD 07/24/2024 8:38 AM [facility] BUN 54(H) 5 - 25 mg/dL LAB CHEMISTRY METHOD 07/24/2024 8:38 AM [facility] Creatinine 2.84(H) 0.50 - 1.10 mg/dL LAB CHEMISTRY METHOD 07/24/2024 8:38 AM [facility] eGFR 16(L) >=60 mL/min/1. 73m2 LAB CHEMISTRY METHOD 07/24/2024 8:38 AM [facility] Comment:Calculation based on the??Chronic Kidney Disease Epidemiology Collaboration (CKD-EPI) equation refit??without adjustment for race. BUN/Creatinine Ratio 19.0 LAB CHEMISTRY METHOD 07/24/2024 8:38 AM [facility] Calcium 8.0(L) 8.5 - 10.5 mg/dL LAB CHEMISTRY METHOD 07/24/2024 8:38 AM EST [facility] Blood Venous blood specimen / Unknown Venipuncture / Unknown 07/24/2024 6:48 AM EST 07/24/2024 7:03 AM EST Lencho Stuart MD LAB BLOOD ORDERABLES Final R esult [facility] [address] [place] [address], * Heparin and low molecular weight anti Xa level (07/24/2024 12:07 AM EST) Heparin Anti-Xa 0.69 0.30 - 0.70 I Unit/mL LAB COAGULATION METHOD 07/24/2024 12:28 AM EST [facility] Blood Venous blood specimen / Unknown Venipuncture / Unknown 07/24/2024 12:07 AM EST 07/24/2024 12:17 AM EST Narrative [facility] - 07/24/2024 12:28 AM EST Therapeutic range listed is for Unfractionated Heparin. LMW Heparin therapeutic range: 0.50-1.20 IU/mL Lencho Stuart MD LAB BLOOD ORDERABLES Final R esult [facility] [address] [place] [address], * (ABNORMAL) POCT Glucose, blood (07/23/2024 7:35 PM EST) Glucose POCT 320(H) 70 - 100 mg/dL 07/23/2024 7:35 PM EST [facility] Blood Capillary blood specimen / Unknown 07/23/2024 7:35 PM EST 07/23/2024 7:37 PM EST Lencho Stuart MD LAB POINT OF CARE TE ST DOCKED DEVICE UNSOLICITED RESULTS Final Result [facility] [address] [place] [address], [place] [phone] * Transfuse RBC (07/23/2024 6:19 PM EST) [...] Insertion of 18g/10cm Bard Powerglide midline Lot: [id number] Exp: 2025-05-28 Indications: ??Difficult draw with frequent [...] - 100 mg/dL 07/23/2024 4:31 PM EST [facility] Blood Capillary blood specimen / Unknown 07/23/2024 4:30 PM EST 07/23/2024 4:32 PM EST us Lencho Stuart MD LAB POINT OF CARE TE ST DOCKED DEVICE UNSOLICITED RESULTS Final Result [facility] [address] [place] [address], [place] [phone] * (ABNORMAL) Heparin and low molecular weight anti Xa level (07/23/2024 4:08 PM EST) Heparin Anti-Xa 0.82(H) 0.30 - 0.70 I Unit/mL LAB COAGULATION METHOD 07/23/2024 4:33 PM EST [facility] Blood Venous blood specimen / Unknown Venipuncture / Unknown 07/23/2024 4:08 PM EST 07/23/2024 4:24 PM EST Narrative [facility] - 07/23/2024 4:33 PM EST Therapeutic range listed is for Unfractionated Heparin. LMW Heparin therapeutic range: 0.50-1.20 IU/mL Lencho Stuart MD LAB BLOOD ORDERABLES Final R esult Performing Organization Address City/[facility]/ZIP Co de Phone Number [facility] [address] [place] [address], * Type and screen (07/23/2024 12:31 PM EST) ABO Group O 07/23/2024 2:33 PM EST [facility] Rh Type Positive 07/23/2024 2:33 PM EST [facility] Antibody Screen Negative 07/23/2024 2:33 PM EST [facility] Blood Venous blood specimen / Unknown Venipuncture / Unknown 07/23/2024 12:31 PM EST 07/23/2024 12:50 PM EST us Lencho Stuart MD LAB BLOOD BANK TEST ORDERABL ES Final Result Performing Organization Address [facility]/ZIP Co de Phone Number [facility] [address] [place] [address], [place] [phone] * (ABNORMAL) POCT Glucose, blood (07/23/2024 12:12 PM EST) [facility] Glucose POCT 204(H) 70 - 100 mg/dL 07/23/2024 12:13 PM EST [facility] Blood Capillary blood specimen / Unknown 07/23/2024 12:12 PM EST 07/23/2024 12:14 PM EST us Lencho Stuart MD LAB POINT OF CARE TE ST DOCKED DEVICE UNSOLICITED RESULTS Final Result Performing Organization Address City/[facility]/ZIP Co de Phone Number [facility] [address] [place] [address], [place] [phone] * Prepare RBC: 1 Units (07/23/2024 11:14 AM EST) [facility] Product Code [id number] 07/23/2024 3:38 PM [facility] Unit Number [id number] 07/23/19 3:38 PM [facility] Crossmatch Compatible 07/23/2024 2:36 PM [facility] Dispense Status Transfused 07/23/2024 3:38 PM [facility] Unit ABO Rh OPOS 07/23/2024 3:38 PM [facility] Unit Expiration Date Time [id number] 07/23/2024 3:38 PM [facility] Unit Blood Type 5100 07/23/2024 3:38 PM EST [facility] Blood Venous blood specimen / Unknown 07/23/2024 11:14 AM EST 07/23/2024 12:50 PM EST Lencho Stuart MD BLOOD BANK PRODUCT ORDERABLE S Final Result Performing Organization Address [facility]/ZIP Co de Phone Number [facility] [address] [place] [address], * (ABNORMAL) Heparin and low molecular weight anti Xa level (07/23/2024 8:40 AM EST) Heparin Anti-Xa 0.77(H) 0.30 - 0.70 I Unit/mL LAB COAGULATION METHOD 07/23/2024 9:05 AM EST [facility] Blood Venous blood specimen / Unknown Venipuncture / Unknown 07/23/2024 8:40 AM EST 07/23/2024 8:47 AM EST Narrative [facility] - 07/23/2024 9:05 AM EST Therapeutic range listed is for Unfractionated Heparin. LMW Heparin therapeutic range: 0.50-1.20 IU/mL Lencho Stuart MD LAB BLOOD ORDERABLES Final R esult Performing Organization Address City/[facility]/ZIP Co de Phone Number [facility] [address] [place] [address], * (ABNORMAL) CBC auto differential (07/23/2024 5:44 AM EST) WBC 11.6(H) 4.8 - 10.8 K/mcL LAB HEMETOLOGY METHOD 07/23/2024 7:10 AM EST [facility] RBC 2.80(L) 3.80 - 4.80 M/mcL LAB HEMETOLOGY METHOD 07/23/2024 7:10 AM EST [facility] Hemoglobin 6.9(L) 11.5 - 16.0 g/dL LAB HEMETOLOGY METHOD 07/23/2024 7:10 AM [facility] Hematocrit 23.0(L) 35.0 - 47.0 % LAB HEMETOLOGY METHOD 07/23/2024 7:10 AM [facility] MCV 81.6 79.0 - 98.0 FL LAB HEMETOLOGY METHOD 07/23/2024 7:10 AM [facility] MCH 24.5(L) 27.0 - 32.0 pcg LAB HEMETOLOGY METHOD 07/23/2024 7:10 AM [facility] MCHC 30.0(L) 32.0 - 37.0 g/dL LAB HEMETOLOGY METHOD 07/23/2024 7:10 AM [facility] RDW 23.3(H) 11.0 - 15.0 % LAB HEMETOLOGY METHOD 07/23/2024 7:10 AM [facility] Platelets 206 130 - 400 K/mcL LAB HEMETOLOGY METHOD 07/23/2024 7:10 AM [facility] MPV 10.5 7.0 - 11.0 FL LAB HEMETOLOGY METHOD 07/23/2024 7:10 AM [facility] NRBC 0.0 <1.0 % LAB HEMETOLOGY METHOD 07/23/2024 7:10 AM [facility] NRBC Absolute 0.00 <0.10 K/mcL LAB HEMETOLOGY METHOD 07/23/2024 7:10 AM [facility] Neutrophils Relative 90.8 % LAB HEMETOLOGY METHOD 07/23/2024 7:10 AM [facility] Lymphocytes Relative 3.4 % LAB HEMETOLOGY METHOD 07/23/2024 7:10 AM [facility] Monocytes Relative 5.0 % LAB HEMETOLOGY METHOD 07/23/2024 7:10 AM EST [facility] Eosinophils Relative 0.0 % LAB HEMETOLOGY METHOD 07/23/2024 7:10 AM [facility] Basophils Relative 0.1 % LAB HEMETOLOGY METHOD 07/23/2024 7:10 AM [facility] Immature Granulocytes Relative 0.7 % LAB HEMETOLOGY METHOD 07/23/2024 7:10 AM [facility] Neutrophils Absolute 10.52(H) 1.50 - 7.00 K/mcL LAB HEMETOLOGY METHOD 07/23/2024 7:10 AM [facility] Lymphocytes Absolute 0.39(L) 1.00 - 5.00 K/mcL LAB HEMETOLOGY METHOD 07/23/2024 7:10 AM [facility] Monocytes Absolute 0.58 0.20 - 1.00 K/mcL LAB HEMETOLOGY METHOD 07/23/2024 7:10 AM [facility] Eosinophils Absolute 0.00 0.00 - 0.50 K/mcL LAB HEMETOLOGY METHOD 07/23/2024 7:10 AM [facility] Basophils Absolute 0.01 0.00 - 0.20 K/mcL LAB HEMETOLOGY METHOD 07/23/2024 7:10 AM [facility] Immature Granulocytes Absolute 0.08(H) 0.00 - 0.03 K/mcL LAB HEMETOLOGY METHOD 07/23/2024 7:10 AM [facility] Blood Venous blood specimen / Unknown Venipuncture / Unknown 07/23/2024 5:44 AM EST 07/23/2024 6:50 AM EST Lencho Stuart MD LAB BLOOD ORDERABLES Final R esult [facility] [address] [place] [address], * (ABNORMAL) Basic metabolic panel (07/23/2024 5:44 AM EST) Sodium 130(L) 133 - 145 mmol/L LAB CHEMISTRY METHOD 07/23/2024 8:36 AM [facility] Potassium 5.5 3.5 - 5.5 mmol/L LAB CHEMISTRY METHOD 07/23/2024 8:36 AM [facility] Chloride 92(L) 96 - 110 mmol/L LAB CHEMISTRY METHOD 07/23/2024 8:36 AM [facility] CO2 29 21 - 32 mmol/L LAB CHEMISTRY METHOD 07/23/2024 8:36 AM [facility] Anion Gap 9 3 - 11 LAB CHEMISTRY METHOD 07/23/2024 8:36 AM [facility] Glucose 378(H) 70 - 100 mg/dL LAB CHEMISTRY METHOD 07/23/2024 8:36 AM [facility] BUN 76(H) 5 - 25 mg/dL LAB CHEMISTRY METHOD 07/23/2024 8:36 AM [facility] Creatinine 4.16(H) 0.50 - 1.10 mg/dL LAB CHEMISTRY METHOD 07/23/2024 8:36 AM [facility] eGFR 10(L) >=60 mL/min/1. 73m2 LAB CHEMISTRY METHOD 07/23/2024 8:36 AM [facility] Comment:Calculation based on the??Chronic Kidney Disease Epidemiology Collaboration (CKD-EPI) equation refit??without adjustment for race. BUN/Creatinine Ratio 18.3 LAB CHEMISTRY METHOD 07/23/2024 8:36 AM [facility] Calcium 7.9(L) 8.5 - 10.5 mg/dL LAB CHEMISTRY METHOD 07/23/2024 8:36 AM [facility] Blood Venous blood specimen / Unknown Venipuncture / Unknown 07/23/2024 5:44 AM EST 07/23/2024 6:50 AM EST Lencho Stuart MD LAB BLOOD ORDERABLES Final R esult [facility] [address] [place] [address], [place] [phone] * (ABNORMAL) Heparin and low molecular weight anti Xa level (07/23/2024 2:05 AM EST) Heparin Anti-Xa 0.87(H) 0.30 - 0.70 I Unit/mL LAB COAGULATION METHOD 07/23/2024 2:20 AM EST [facility] Blood Venous blood specimen / Unknown Venipuncture / Unknown 07/23/2024 2:05 AM EST 07/23/2024 2:10 AM EST Narrative [facility] - 07/23/2024 2:20 AM EST Therapeutic range listed is for Unfractionated Heparin. LMW Heparin therapeutic range: 0.50-1.20 IU/mL Lencho Stuart MD LAB BLOOD ORDERABLES Final R esult Performing Organization Address City/[facility]/ZIP Co de Phone Number [facility] [address] [place] [address], [place] [phone] * (ABNORMAL) POCT Glucose, blood (07/22/2024 8:10 PM EST) Glucose POCT 304(H) 70 - 100 mg/dL 07/22/2024 8:10 PM EST [facility] Blood Capillary blood specimen / Unknown 07/22/2024 8:10 PM EST 07/22/2024 8:11 PM EST Lencho Stuart MD LAB POINT OF CARE TE ST DOCKED DEVICE UNSOLICITED RESULTS Final Result [facility] [address] [place] [address], [place] [phone] * (ABNORMAL) Hemoglobin and hematocrit (07/22/2024 6:40 PM EST) Hemoglobin 7.1(L) 11.5 - 16.0 g/dL LAB HEMETOLOGY METHOD 07/22/2024 7:24 PM EST [facility] Hematocrit 23.3(L) 35.0 - 47.0 % LAB HEMETOLOGY METHOD 07/22/2024 7:24 PM EST [facility] Blood Venous blood specimen / Unknown Venipuncture / Unknown 07/22/2024 6:40 PM EST 07/22/2024 7:20 PM EST Fela Palomo MD LAB BLOOD ORDERABLES Final Resu lt [facility] [address] [place] [address], [place] [phone] * (ABNORMAL) POCT Glucose, blood (07/22/2024 4:10 PM EST) Glucose POCT 267(H) 70 - 100 mg/dL 07/22/2024 4:11 PM EST [facility] Blood Capillary blood specimen / Unknown 07/22/2024 4:10 PM EST 07/22/2024 4:12 PM EST Lencho Stuart MD LAB POINT OF CARE TE ST DOCKED DEVICE UNSOLICITED RESULTS Final Result [facility] [address] [place] [address], [place] [phone] * IR Bx Ndl Renal Perc Left [...] Signed Date: 07/22/2024 17:00 ET Workstation ID: [id number] Transcribed By: Self Edit Transcribed Date: 07/22/2024 [...] of fentanyl administered during the procedure. Scanner: [employer] [address] Dose reduction technique: AEC [...] department. Procedure Note Fela Palomo MD - 01/24/2025 INDICATION: Acute renal failure PROCEDURE: Consent obtained [...] of fentanyl administered during the procedure. Scanner: [employer] [address] Dose reduction technique: AEC [...] Signed Date: 07/22/2024 17:00 ET Workstation ID: [id number] Transcribed By: Self Edit Transcribed Date: 07/22/2024 [...] Tissue exam (07/22/2024 3:13 PM EST) Addendum [facility] Kidney (addendum) This case was sent to [facility], Department of Pathology, [place], [place] (CLIA: [id number]). Their diagnosis is summarized as follows: Pathologic [...] report for full kidney biopsy diagnosis from [facility], [place], [place]) 08/12/2024 10:52 AM EST [facility] ([facility]) [facility] Addendum electronically signed by Mitchell Prince MD on 08/12/2024 at 10:52 AM Final Diagnosis Kidney, left-biopsies for routine, immunofluorescence and electron microscopy: -Submitted in toto to [facility] -See addendum report 08/12/2024 10:52 AM [facility] Gross Description A. Kidney, Left, : Labeled kidney L . Received fresh in saline are 3 perez-pink soft tissue cores, ranging from 0.7 x 0.1 cm to 1.7 x 0.1 cm, which are transfered to formalin for light microscopy, Mick fixative for Immunofluorescence, and Glutaraldehyde for electron microscopy. The specimen is entirely submitted to [facility] for analysis. ELOISE 08/12/2024 10:52 AM [facility] Disclaimer Unless otherwise specified, all tissue is 10% NB formalin fixed and paraffin embedded. 08/12/2024 10:52 AM [facility] Tissue Left kidney structure / Unknown 07/22/2024 3:13 PM EST 07/22/2024 3:39 PM EST Fela Palomo MD LAB PATHOLOGY ORDERABLES Edited Result - Final [facility] [address] [place] [address], * (ABNORMAL) Prothrombin time with INR (07/22/2024 11:00 AM EST) Protime 16.3(H) 10.6 - 13.9 sec LAB COAGULATION METHOD 07/22/2024 1:11 PM EST [facility] INR 1.3 LAB COAGULATION METHOD 07/22/2024 1:11 PM [facility] Blood Venous blood specimen / Unknown Venipuncture / Unknown 07/22/2024 11:00 AM EST 07/22/2024 11:22 AM EST Lencho Stuart MD LAB BLOOD ORDERABLES Final R esult [facility] [address] [place] [address], [place] [phone] * (ABNORMAL) Anti-Xa - Every 6 Hours (07/22/2024 11:00 AM EST) Heparin Anti-Xa <0.04(L) 0.30 - 0.70 I Unit/mL LAB COAGULATION METHOD 07/22/2024 12:11 PM EST [facility] Blood Venous blood specimen / Unknown Venipuncture / Unknown 07/22/2024 11:00 AM EST 07/22/2024 11:22 AM EST Narrative [facility] - 07/22/2024 12:11 PM EST Therapeutic range listed is for Unfractionated Heparin. LMW Heparin therapeutic range: 0.50-1.20 IU/mL us Lencho Stuart MD LAB BLOOD ORDERABLES Final R esult Performing Organization Address City/[facility]/ZIP Co de Phone Number [facility] [address] [place] [address], [place] [phone] * Lavender tube (07/22/2024 10:53 AM EST) Extra Tube Hold for add-ons. 07/22/2024 1:01 PM EST [facility] Comment:Auto resulted. Blood Venous blood specimen / Unknown 07/22/2024 10:53 AM EST 07/22/2024 11:25 AM EST us Lencho Stuart MD LAB BLOOD ORDERABLES Final R esult [facility] [address] [place] [address], [place] [phone] * SST tube (07/22/2024 10:53 AM EST) Extra Tube Hold for add-ons. 07/22/2024 1:01 PM EST [facility] Comment:Auto resulted. Blood Venous blood specimen / Unknown 07/22/2024 10:53 AM EST 07/22/2024 11:25 AM EST us Lencho Stuart MD LAB BLOOD ORDERABLES Final R esult Performing Organization Address [facility] Co de Phone Number [facility] [address] [place] [address], [place] [phone] * (ABNORMAL) POCT Glucose, blood (07/22/2024 10:48 AM EST) Glucose POCT 280(H) 70 - 100 mg/dL 07/22/2024 11:08 AM EST [facility] Blood Capillary blood specimen / Unknown 07/22/2024 10:48 AM EST 07/22/2024 11:09 AM EST us Lencho Stuart MD LAB POINT OF CARE TE ST DOCKED DEVICE UNSOLICITED RESULTS Final Result Performing Organization Address [facility] Co de Phone Number [facility] [address] [place] [address], [place] [phone] * (ABNORMAL) POCT Glucose, blood (07/22/2024 8:10 AM EST) Glucose POCT 300(H) 70 - 100 mg/dL 07/22/2024 8:11 AM EST [facility] Blood Capillary blood specimen / Unknown 07/22/2024 8:10 AM EST 07/22/2024 8:13 AM EST us Lencho Stuart MD LAB POINT OF CARE TE ST DOCKED DEVICE UNSOLICITED RESULTS Final Result Performing Organization Address City/[facility] Co de Phone Number [facility] [address] [place] [address], [place] [phone] * (ABNORMAL) POCT Glucose, blood (07/22/2024 3:43 AM EST) [facility] Glucose POCT 276(H) 70 - 100 mg/dL 07/22/2024 3:44 AM EST [facility] Blood Capillary blood specimen / Unknown 07/22/2024 3:43 AM EST 07/22/2024 3:45 AM EST [facility] LAB POINT OF CARE TE ST DOCKED DEVICE UNSOLICITED RESULTS Final Result [facility] [address] [place] [address], [place] [phone] * (ABNORMAL) CBC auto differential (07/22/2024 3:11 AM EST) [facility] WBC 9.6 4.8 - 10.8 K/mcL LAB HEMETOLOGY METHOD 07/22/2024 3:32 AM [facility] RBC 3.00(L) 3.80 - 4.80 M/mcL LAB HEMETOLOGY METHOD 07/22/2024 3:32 AM [facility] Hemoglobin 7.2(L) 11.5 - 16.0 g/dL LAB HEMETOLOGY METHOD 07/22/2024 3:32 AM [facility] Hematocrit 24.3(L) 35.0 - 47.0 % LAB HEMETOLOGY METHOD 07/22/2024 3:32 AM [facility] MCV 80.5 79.0 - 98.0 FL LAB HEMETOLOGY METHOD 07/22/2024 3:32 AM [facility] MCH 23.8(L) 27.0 - 32.0 pcg LAB HEMETOLOGY METHOD 07/22/2024 3:32 AM [facility] MCHC 29.6(L) 32.0 - 37.0 g/dL LAB HEMETOLOGY METHOD 07/22/2024 3:32 AM [facility] RDW 23.6(H) 11.0 - 15.0 % LAB HEMETOLOGY METHOD 07/22/2024 3:32 AM [facility] Platelets 169 130 - 400 K/mcL LAB HEMETOLOGY METHOD 07/22/2024 3:32 AM [facility] MPV 9.7 7.0 - 11.0 FL LAB HEMETOLOGY METHOD 07/22/2024 3:32 AM [facility] NRBC 0.0 <1.0 % LAB HEMETOLOGY METHOD 07/22/2024 3:32 AM [facility] NRBC Absolute 0.00 <0.10 K/mcL LAB HEMETOLOGY METHOD 07/22/2024 3:32 AM [facility] Neutrophils Relative 95.2 % LAB HEMETOLOGY METHOD 07/22/2024 3:32 AM [facility] Lymphocytes Relative 3.3 % LAB HEMETOLOGY METHOD 07/22/2024 3:32 AM [facility] Monocytes Relative 0.7 % LAB HEMETOLOGY METHOD 07/22/2024 3:32 AM [facility] Eosinophils Relative 0.0 % LAB HEMETOLOGY METHOD 07/22/2024 3:32 AM [facility] Basophils Relative 0.1 % LAB HEMETOLOGY METHOD 07/22/2024 3:32 AM [facility] Immature Granulocytes Relative 0.7 % LAB HEMETOLOGY METHOD 07/22/2024 3:32 AM [facility] Neutrophils Absolute 9.13(H) 1.50 - 7.00 K/mcL LAB HEMETOLOGY METHOD 07/22/2024 3:32 AM [facility] Lymphocytes Absolute 0.32(L) 1.00 - 5.00 K/mcL LAB HEMETOLOGY METHOD 07/22/2024 3:32 AM EST [facility] Monocytes Absolute 0.07(L) 0.20 - 1.00 K/[facility] LAB HEMETOLOGY METHOD 07/22/2024 3:32 AM EST [facility] Eosinophils Absolute 0.00 0.00 - 0.50 K/mcL LAB HEMETOLOGY METHOD 07/22/2024 3:32 AM EST [facility] Basophils Absolute 0.01 0.00 - 0.20 K/[facility] LAB HEMETOLOGY METHOD 07/22/2024 3:32 AM EST [facility] Immature Granulocytes Absolute 0.07(H) 0.00 - 0.03 K/mcL LAB HEMETOLOGY METHOD 07/22/2024 3:32 AM EST [facility] Blood Venous blood specimen / Unknown Venipuncture / Unknown 07/22/2024 3:11 AM EST 07/22/2024 3:23 AM EST Estdimas Stuart MD LAB BLOOD ORDERABLES Final R esult [facility] [address] [place] [address], * (ABNORMAL) Basic metabolic panel (07/22/2024 3:11 AM EST) Sodium 132(L) 133 - 145 mmol/L LAB CHEMISTRY METHOD 07/22/2024 4:20 AM EST [facility] Potassium 5.0 3.5 - 5.5 mmol/L LAB CHEMISTRY METHOD 07/22/2024 4:20 AM EST [facility] Chloride 95(L) 96 - 110 mmol/L LAB CHEMISTRY METHOD 07/22/2024 4:20 AM EST [facility] CO2 27 21 - 32 mmol/L LAB CHEMISTRY METHOD 07/22/2024 4:20 AM [facility] Anion Gap 10 3 - 11 LAB CHEMISTRY METHOD 07/22/2024 4:20 AM [facility] Glucose 264(H) 70 - 100 mg/dL LAB CHEMISTRY METHOD 07/22/2024 4:20 AM [facility] BUN 40(H) 5 - 25 mg/dL LAB CHEMISTRY METHOD 07/22/2024 4:20 AM [facility] Creatinine 2.87(H) 0.50 - 1.10 mg/dL LAB CHEMISTRY METHOD 07/22/2024 4:20 AM [facility] eGFR 16(L) >=60 mL/min/1. 73m2 LAB CHEMISTRY METHOD 07/22/2024 4:20 AM [facility] Comment:Calculation based on the??Chronic Kidney Disease Epidemiology Collaboration (CKD-EPI) equation refit??without adjustment for race. BUN/Creatinine Ratio 13.9 LAB CHEMISTRY METHOD 07/22/2024 4:20 AM [facility] Calcium 7.4(L) 8.5 - 10.5 mg/dL LAB CHEMISTRY METHOD 07/22/2024 4:20 AM [facility] Blood Venous blood specimen / Unknown Venipuncture / Unknown 07/22/2024 3:11 AM EST 07/22/2024 4:20 AM EST us Lencho Stuart MD LAB BLOOD ORDERABLES Final R esult [facility] [address] [place] [address], * (ABNORMAL) Anti-Xa - Every 6 Hours (07/22/2024 3:09 AM EST) Heparin Anti-Xa 0.26(L) 0.30 - 0.70 I Unit/mL LAB COAGULATION METHOD 07/22/2024 3:33 AM [facility] Blood Venous blood specimen / Unknown Venipuncture / Unknown 07/22/2024 3:09 AM EST 07/22/2024 3:23 AM EST Narrative [facility] - 07/22/2024 3:33 AM EST Therapeutic range listed is for Unfractionated Heparin. LMW Heparin therapeutic range: 0.50-1.20 IU/mL us Lencho Stuart MD LAB BLOOD ORDERABLES Final R esult [facility] [address] [place] [address], [place] [phone] * (ABNORMAL) POCT Glucose, blood (07/21/2024 8:10 PM EST) Glucose POCT 172(H) 70 - 100 mg/dL 07/21/2024 8:11 PM EST [facility] Blood Capillary blood specimen / Unknown 07/21/2024 8:10 PM EST 07/21/2024 8:12 PM EST us Lencho Stuart MD LAB POINT OF CARE TE ST DOCKED DEVICE UNSOLICITED RESULTS Final Result Performing Organization Address [facility]/ZIP Co de Phone Number [facility] [address] [place] [address], [place] [phone] * (ABNORMAL) Heparin and low molecular weight anti Xa level (07/21/2024 8:02 PM EST) Heparin Anti-Xa 0.27(L) 0.30 - 0.70 I Unit/mL LAB COAGULATION METHOD 07/21/2024 8:37 PM EST [facility] Blood Venous blood specimen / Unknown Venipuncture / Unknown 07/21/2024 8:02 PM EST 07/21/2024 8:26 PM EST Narrative [facility] - 07/21/2024 8:37 PM EST Therapeutic range listed is for Unfractionated Heparin. LMW Heparin therapeutic range: 0.50-1.20 IU/mL us Lencho Stuart MD LAB BLOOD ORDERABLES Final R esult Performing Organization Address [facility]/ZIP Co de Phone Number [facility] [address] [place] [address], [place] [phone] * (ABNORMAL) POCT Glucose, blood (07/21/2024 5:04 PM EST) Glucose POCT 175(H) 70 - 100 mg/dL 07/21/2024 5:05 PM EST [facility] Blood Capillary blood specimen / Unknown 07/21/2024 5:04 PM EST 07/21/2024 5:06 PM EST us Lencho Stuart MD LAB POINT OF CARE TE ST DOCKED DEVICE UNSOLICITED RESULTS Final Result Performing Organization Address [facility]/ZIP Co de Phone Number [facility] [address] [place] [address], [place] [phone] * POCT Glucose, blood (07/21/2024 1:57 PM EST) Glucose POCT 96 70 - 100 mg/dL 07/21/2024 1:58 PM EST [facility] Blood Capillary blood specimen / Unknown 07/21/2024 1:57 PM EST 07/21/2024 1:59 PM EST us Lencho Stuart MD LAB POINT OF CARE TE ST DOCKED DEVICE UNSOLICITED RESULTS Final Result Performing Organization Address City/[facility]/ZIP Co de Phone Number [facility] [address] [place] [address], [place] [phone] * (ABNORMAL) Complete blood count (07/21/2024 8:55 AM EST) WBC 18.9(H) 4.8 - 10.8 K/mcL LAB HEMETOLOGY METHOD 07/21/2024 9:21 AM [facility] RBC 3.00(L) 3.80 - 4.80 M/mcL LAB HEMETOLOGY METHOD 07/21/2024 9:21 AM [facility] Hemoglobin 7.3(L) 11.5 - 16.0 g/dL LAB HEMETOLOGY METHOD 07/21/2024 9:21 AM [facility] Hematocrit 23.7(L) 35.0 - 47.0 % LAB HEMETOLOGY METHOD 07/21/2024 9:21 AM [facility] MCV 80.3 79.0 - 98.0 FL LAB HEMETOLOGY METHOD 07/21/2024 9:21 AM [facility] MCH 24.7(L) 27.0 - 32.0 pcg LAB HEMETOLOGY METHOD 07/21/2024 9:21 AM [facility] MCHC 30.8(L) 32.0 - 37.0 g/dL LAB HEMETOLOGY METHOD 07/21/2024 9:21 AM [facility] RDW 23.7(H) 11.0 - 15.0 % LAB HEMETOLOGY METHOD 07/21/2024 9:21 AM [facility] Platelets 195 130 - 400 K/mcL LAB HEMETOLOGY METHOD 07/21/2024 9:21 AM [facility] MPV 10.2 7.0 - 11.0 FL LAB HEMETOLOGY METHOD 07/21/2024 9:21 AM [facility] NRBC 0.0 <1.0 % LAB HEMETOLOGY METHOD 07/21/2024 9:21 AM [facility] NRBC Absolute 0.00 <0.10 K/mcL LAB HEMETOLOGY METHOD 07/21/2024 9:21 AM [facility] Blood Venous blood specimen / Unknown Venipuncture / Unknown 07/21/2024 8:55 AM EST 07/21/2024 9:11 AM EST Lencho Stuart MD LAB BLOOD ORDERABLES Final R esult [facility] [address] [place] [address], * (ABNORMAL) Basic metabolic panel (07/21/2024 8:55 AM EST) Sodium 130(L) 133 - 145 mmol/L LAB CHEMISTRY METHOD 07/21/2024 9:50 AM [facility] Potassium 4.8 3.5 - 5.5 mmol/L LAB CHEMISTRY METHOD 07/21/2024 9:50 AM [facility] Chloride 92(L) 96 - 110 mmol/L LAB CHEMISTRY METHOD 07/21/2024 9:50 AM [facility] CO2 29 21 - 32 mmol/L LAB CHEMISTRY METHOD 07/21/2024 9:50 AM [facility] Anion Gap 9 3 - 11 LAB CHEMISTRY METHOD 07/21/2024 9:50 AM [facility] Glucose 142(H) 70 - 100 mg/dL LAB CHEMISTRY METHOD 07/21/2024 9:50 AM [facility] BUN 63(H) 5 - 25 mg/dL LAB CHEMISTRY METHOD 07/21/2024 9:50 AM [facility] Creatinine 5.05(H) 0.50 - 1.10 mg/dL LAB CHEMISTRY METHOD 07/21/2024 9:50 AM [facility] eGFR 8(L) >=60 mL/min/1. 73m2 LAB CHEMISTRY METHOD 07/21/2024 9:50 AM [facility] Comment:Calculation based on the??Chronic Kidney Disease Epidemiology Collaboration (CKD-EPI) equation refit??without adjustment for race. BUN/Creatinine Ratio 12.5 LAB CHEMISTRY METHOD 07/21/2024 9:50 AM EST [facility] Calcium 7.6(L) 8.5 - 10.5 mg/dL LAB CHEMISTRY METHOD 07/21/2024 9:50 AM EST [facility] Blood Venous blood specimen / Unknown Venipuncture / Unknown 07/21/2024 8:55 AM EST 07/21/2024 9:10 AM EST Lencho Stuart MD LAB BLOOD ORDERABLES Final R esult [facility] [address] [place] [address], [place] [phone] * (ABNORMAL) POCT Glucose, blood (07/21/2024 8:03 AM EST) Glucose POCT 159(H) 70 - 100 mg/dL 07/21/2024 8:04 AM EST [facility] Blood Capillary blood specimen / Unknown 07/21/2024 8:03 AM EST 07/21/2024 8:05 AM EST Lencho Stuart MD LAB POINT OF CARE TE ST DOCKED DEVICE UNSOLICITED RESULTS Final Result [facility] [address] [place] [address], [place] [phone] * SST tube (07/21/2024 5:41 AM EST) Extra Tube Hold for add-ons. 07/21/2024 9:01 AM EST [facility] Comment:Auto resulted. Blood Venous blood specimen / Unknown 07/21/2024 5:41 AM EST 07/21/2024 7:02 AM EST us Lencho Stuart MD LAB BLOOD ORDERABLES Final R esult [facility] [address] [place] [address], * (ABNORMAL) CBC - Every 3 Days (07/21/2024 5:12 AM EST) WBC 18.8(H) 4.8 - 10.8 K/mcL LAB HEMETOLOGY METHOD 07/21/2024 7:22 AM [facility] RBC 2.90(L) 3.80 - 4.80 M/mcL LAB HEMETOLOGY METHOD 07/21/2024 7:22 AM [facility] Hemoglobin 7.3(L) 11.5 - 16.0 g/dL LAB HEMETOLOGY METHOD 07/21/2024 7:22 AM [facility] Hematocrit 23.6(L) 35.0 - 47.0 % LAB HEMETOLOGY METHOD 07/21/2024 7:22 AM [facility] MCV 81.1 79.0 - 98.0 FL LAB HEMETOLOGY METHOD 07/21/2024 7:22 AM [facility] MCH 25.1(L) 27.0 - 32.0 pcg LAB HEMETOLOGY METHOD 07/21/2024 7:22 AM [facility] MCHC 30.9(L) 32.0 - 37.0 g/dL LAB HEMETOLOGY METHOD 07/21/2024 7:22 AM [facility] RDW 23.7(H) 11.0 - 15.0 % LAB HEMETOLOGY METHOD 07/21/2024 7:22 AM [facility] Platelets 200 130 - 400 K/mcL LAB HEMETOLOGY METHOD 07/21/2024 7:22 AM [facility] MPV 10.5 7.0 - 11.0 FL LAB HEMETOLOGY METHOD 07/21/2024 7:22 AM EST [facility] NRBC 0.0 <1.0 % LAB HEMETOLOGY METHOD 07/21/2024 7:22 AM EST [facility] NRBC Absolute 0.00 <0.10 K/mcL LAB HEMETOLOGY METHOD 07/21/2024 7:22 AM EST [facility] Blood Venous blood specimen / Unknown Venipuncture / Unknown 07/21/2024 5:12 AM EST 07/21/2024 6:58 AM EST us Lencho Stuart MD LAB BLOOD ORDERABLES Final R esult [facility] [address] [place] [address], [place] [phone] * (ABNORMAL) POCT Glucose, blood (07/21/2024 2:47 AM EST) Glucose POCT 144(H) 70 - 100 mg/dL 07/21/2024 2:48 AM EST [facility] Blood Capillary blood specimen / Unknown 07/21/2024 2:47 AM EST 07/21/2024 2:49 AM EST us Lencho Sutart MD LAB POINT OF CARE TE ST DOCKED DEVICE UNSOLICITED RESULTS Final Result [facility] [address] [place] [address], [place] [phone] * (ABNORMAL) POCT Glucose, blood (07/20/2024 8:11 PM EST) Glucose POCT 140(H) 70 - 100 mg/dL 07/20/2024 8:12 PM EST [facility] Blood Capillary blood specimen / Unknown 07/20/2024 8:11 PM EST 07/20/2024 8:13 PM EST us Lencho Stuart MD LAB POINT OF CARE TE ST DOCKED DEVICE UNSOLICITED RESULTS Final Result Performing Organization Address [facility]/ZIP Co de Phone Number [facility] [address] [place] [address], [place] [phone] * (ABNORMAL) Anti-Xa - Every 6 Hours (07/20/2024 7:45 PM EST) Heparin Anti-Xa <0.04(L) 0.30 - 0.70 I Unit/mL LAB COAGULATION METHOD 07/20/2024 9:02 PM EST [facility] Blood Venous blood specimen / Unknown Venipuncture / Unknown 07/20/2024 7:45 PM EST 07/20/2024 8:01 PM EST Narrative [facility] - 07/20/2024 9:02 PM EST Therapeutic range listed is for Unfractionated Heparin. LMW Heparin therapeutic range: 0.50-1.20 IU/mL us Lencho Stuart MD LAB BLOOD ORDERABLES Final R esult Performing Organization Address [facility]/ZIP Co de Phone Number [facility] [address] [place] [address], [place] [phone] * (ABNORMAL) POCT Glucose, blood (07/20/2024 4:21 PM EST) Glucose POCT 167(H) 70 - 100 mg/dL 07/20/2024 4:23 PM EST [facility] Blood Capillary blood specimen / Unknown 07/20/2024 4:21 PM EST 07/20/2024 4:24 PM EST us Lencho Stuart MD LAB POINT OF CARE TE ST DOCKED DEVICE UNSOLICITED RESULTS Final Result [facility] [address] [place] [address], [place] [phone] * Activated Partial Thromboplastin Time - STAT (07/20/2024 2:30 PM EST) aPTT 30.0 24.1 - 39.3 sec LAB COAGULATION METHOD 07/20/2024 3:06 PM EST [facility] Blood Venous blood specimen / Unknown Venipuncture / Unknown 07/20/2024 2:30 PM EST 07/20/2024 2:52 PM EST us Lencho Stuart MD LAB BLOOD ORDERABLES Final R esult Performing Organization Address [facility]/ZIP Co de Phone Number [facility] [address] [place] [address], [place] [phone] * (ABNORMAL) Prothrombin Time with INR - STAT (07/20/2024 2:30 PM EST) Protime 17.6(H) 10.6 - 13.9 sec LAB COAGULATION METHOD 07/20/2024 3:06 PM EST [facility] INR 1.4 LAB COAGULATION METHOD 07/20/2024 3:06 PM EST [facility] Blood Venous blood specimen / Unknown Venipuncture / Unknown 07/20/2024 2:30 PM EST 07/20/2024 2:52 PM EST us Lencho Stuart MD LAB BLOOD ORDERABLES Final R esult [facility] [address] [place] [address], [place] [phone] * (ABNORMAL) POCT Glucose, blood (07/20/2024 11:23 AM EST) Glucose POCT 139(H) 70 - 100 mg/dL 07/20/2024 11:24 AM EST [facility] Blood Capillary blood specimen / Unknown 07/20/2024 11:23 AM EST 07/20/2024 11:26 AM EST Lencho Stuart MD LAB POINT OF CARE TE ST DOCKED DEVICE UNSOLICITED RESULTS Final Result Performing Organization Address [facility]/ZIP Co de Phone Number [facility] [address] [place] [address], [place] [phone] * (ABNORMAL) POCT Glucose, blood (07/20/2024 8:20 AM EST) Glucose POCT 132(H) 70 - 100 mg/dL 07/20/2024 8:20 AM [facility] Blood Capillary blood specimen / Unknown 07/20/2024 8:20 AM EST 07/20/2024 8:21 AM EST Lencho Stuart MD LAB POINT OF CARE TE ST DOCKED DEVICE UNSOLICITED RESULTS Final Result Performing Organization Address [facility] Co de Phone Number [facility] [address] [place] [address], [place] [phone] * (ABNORMAL) CBC auto differential (07/20/2024 5:46 AM EST) WBC 20.9(H) 4.8 - 10.8 K/mcL LAB HEMETOLOGY METHOD 07/20/2024 7:07 AM [facility] RBC 3.00(L) 3.80 - 4.80 M/[facility] LAB HEMETOLOGY METHOD 07/20/2024 7:07 AM [facility] Hemoglobin 7.3(L) 11.5 - 16.0 g/dL LAB HEMETOLOGY METHOD 07/20/2024 7:07 AM [facility] Hematocrit 23.6(L) 35.0 - 47.0 % LAB HEMETOLOGY METHOD 07/20/2024 7:07 AM [facility] MCV 77.9(L) 79.0 - 98.0 FL LAB HEMETOLOGY METHOD 07/20/2024 7:07 AM [facility] MCH 24.1(L) 27.0 - 32.0 pcg LAB HEMETOLOGY METHOD 07/20/2024 7:07 AM [facility] MCHC 30.9(L) 32.0 - 37.0 g/dL LAB HEMETOLOGY METHOD 07/20/2024 7:07 AM [facility] RDW 23.9(H) 11.0 - 15.0 % LAB HEMETOLOGY METHOD 07/20/2024 7:07 AM [facility] Platelets 217 130 - 400 K/mcL LAB HEMETOLOGY METHOD 07/20/2024 7:07 AM [facility] MPV 9.8 7.0 - 11.0 FL LAB HEMETOLOGY METHOD 07/20/2024 7:07 AM [facility] NRBC 0.0 <1.0 % LAB HEMETOLOGY METHOD 07/20/2024 7:07 AM [facility] NRBC Absolute 0.00 <0.10 K/mcL LAB HEMETOLOGY METHOD 07/20/2024 7:07 AM [facility] Neutrophils Relative 86.5 % LAB HEMETOLOGY METHOD 07/20/2024 7:07 AM [facility] Lymphocytes Relative 3.8 % LAB HEMETOLOGY METHOD 07/20/2024 7:07 AM [facility] Monocytes Relative 5.5 % LAB HEMETOLOGY METHOD 07/20/2024 7:07 AM [facility] Eosinophils Relative 2.7 % LAB HEMETOLOGY METHOD 07/20/2024 7:07 AM [facility] Basophils Relative 0.2 % LAB HEMETOLOGY METHOD 07/20/2024 7:07 AM EST [facility] Immature Granulocytes Relative 1.3 % LAB HEMETOLOGY METHOD 07/20/2024 7:07 AM [facility] Neutrophils Absolute 18.10(H) 1.50 - 7.00 K/mcL LAB HEMETOLOGY METHOD 07/20/2024 7:07 AM EST [facility] Lymphocytes Absolute 0.80(L) 1.00 - 5.00 K/mcL LAB HEMETOLOGY METHOD 07/20/2024 7:07 AM [facility] Monocytes Absolute 1.16(H) 0.20 - 1.00 K/mcL LAB HEMETOLOGY METHOD 07/20/2024 7:07 AM [facility] Eosinophils Absolute 0.56(H) 0.00 - 0.50 K/mcL LAB HEMETOLOGY METHOD 07/20/2024 7:07 AM EST [facility] Basophils Absolute 0.04 0.00 - 0.20 K/mcL LAB HEMETOLOGY METHOD 07/20/2024 7:07 AM EST [facility] Immature Granulocytes Absolute 0.27(H) 0.00 - 0.03 K/mcL LAB HEMETOLOGY METHOD 07/20/2024 7:07 AM [facility] Blood Venous blood specimen / Unknown Venipuncture / Unknown 07/20/2024 5:46 AM EST 07/20/2024 6:38 AM EST [facility] BLOOD ORDERABLES Final R esult [facility] [address] [place] [address], * (ABNORMAL) CBC - Every 3 Days (07/20/2024 5:46 AM EST) WBC 20.9(H) 4.8 - 10.8 K/mcL LAB HEMETOLOGY METHOD 07/20/2024 7:07 AM [facility] RBC 3.00(L) 3.80 - 4.80 M/mcL LAB HEMETOLOGY METHOD 07/20/2024 7:07 AM [facility] Hemoglobin 7.3(L) 11.5 - 16.0 g/dL LAB HEMETOLOGY METHOD 07/20/2024 7:07 AM [facility] Hematocrit 23.6(L) 35.0 - 47.0 % LAB HEMETOLOGY METHOD 07/20/2024 7:07 AM [facility] MCV 77.9(L) 79.0 - 98.0 FL LAB HEMETOLOGY METHOD 07/20/2024 7:07 AM [facility] MCH 24.1(L) 27.0 - 32.0 pcg LAB HEMETOLOGY METHOD 07/20/2024 7:07 AM [facility] MCHC 30.9(L) 32.0 - 37.0 g/dL LAB HEMETOLOGY METHOD 07/20/2024 7:07 AM [facility] RDW 23.9(H) 11.0 - 15.0 % LAB HEMETOLOGY METHOD 07/20/2024 7:07 AM [facility] Platelets 217 130 - 400 K/mcL LAB HEMETOLOGY METHOD 07/20/2024 7:07 AM [facility] MPV 9.8 7.0 - 11.0 FL LAB HEMETOLOGY METHOD 07/20/2024 7:07 AM [facility] NRBC 0.0 <1.0 % LAB HEMETOLOGY METHOD 07/20/2024 7:07 AM [facility] [facility] NRBC Absolute 0.00 <0.10 K/mcL LAB HEMETOLOGY METHOD 07/20/2024 7:07 AM [facility] Blood Venous blood specimen / Unknown Venipuncture / Unknown 07/20/2024 5:46 AM EST 07/20/2024 6:38 AM EST us Kwesi Guido MD LAB BLOOD ORDERABLES F inal Result Performing Organization Address [facility]/ZIP Co de Phone Number [facility] [address] [place] [address], [place] [phone] * Heparin and low molecular weight anti Xa level (07/20/2024 5:46 AM EST) Heparin Anti-Xa 0.36 0.30 - 0.70 I Unit/mL LAB COAGULATION METHOD 07/20/2024 7:15 AM EST [facility] Blood Venous blood specimen / Unknown Venipuncture / Unknown 07/20/2024 5:46 AM EST 07/20/2024 6:40 AM EST Narrative [facility] - 07/20/2024 7:15 AM EST Therapeutic range listed is for Unfractionated Heparin. LMW Heparin therapeutic range: 0.50-1.20 IU/mL Lencho Stuart MD LAB BLOOD ORDERABLES Final R esult Performing Organization Address City/[facility]/ZIP Co de Phone Number [facility] [address] [place] [address], [place] [phone] * (ABNORMAL) Basic metabolic panel (07/20/2024 5:46 AM EST) Sodium 132(L) 133 - 145 mmol/L LAB CHEMISTRY METHOD 07/20/2024 8:03 AM EST [facility] Potassium 4.2 3.5 - 5.5 mmol/L LAB CHEMISTRY METHOD 07/20/2024 8:03 AM EST [facility] Chloride 95(L) 96 - 110 mmol/L LAB CHEMISTRY METHOD 07/20/2024 8:03 AM [facility] CO2 29 21 - 32 mmol/L LAB CHEMISTRY METHOD 07/20/2024 8:03 AM [facility] Anion Gap 8 3 - 11 LAB CHEMISTRY METHOD 07/20/2024 8:03 AM [facility] Glucose 113(H) 70 - 100 mg/dL LAB CHEMISTRY METHOD 07/20/2024 8:03 AM [facility] BUN 41(H) 5 - 25 mg/dL LAB CHEMISTRY METHOD 07/20/2024 8:03 AM [facility] Creatinine 3.68(H) 0.50 - 1.10 mg/dL LAB CHEMISTRY METHOD 07/20/2024 8:03 AM [facility] eGFR 12(L) >=60 mL/min/1. 73m2 LAB CHEMISTRY METHOD 07/20/2024 8:03 AM [facility] Comment:Calculation based on the??Chronic Kidney Disease Epidemiology Collaboration (CKD-EPI) equation refit??without adjustment for race. BUN/Creatinine Ratio 11.1 LAB CHEMISTRY METHOD 07/20/2024 8:03 AM [facility] Calcium 7.3(L) 8.5 - 10.5 mg/dL LAB CHEMISTRY METHOD 07/20/2024 8:03 AM [facility] Blood Venous blood specimen / Unknown Venipuncture / Unknown 07/20/2024 5:46 AM EST 07/20/2024 6:38 AM EST us Lencho Stuart MD LAB BLOOD ORDERABLES Final R esult [facility] [address] [place] [address], * (ABNORMAL) POCT Glucose, blood (07/19/2024 8:18 PM EST) Glucose POCT 146(H) 70 - 100 mg/dL 07/19/2024 8:18 PM EST [facility] Blood Capillary blood specimen / Unknown 07/19/2024 8:18 PM EST 07/19/2024 8:19 PM EST us Lencho Stuart MD LAB POINT OF CARE TE ST DOCKED DEVICE UNSOLICITED RESULTS Final Result Performing Organization Address City/[facility]/ZIP Co de Phone Number [facility] [address] [place] [address], [place] [phone] * (ABNORMAL) POCT Glucose, blood (07/19/2024 7:29 PM EST) Glucose POCT 152(H) 70 - 100 mg/dL 07/19/2024 7:30 PM EST [facility] Blood Capillary blood specimen / Unknown 07/19/2024 7:29 PM EST 07/19/2024 7:31 PM EST us Lencho Stuart MD LAB POINT OF CARE TE ST DOCKED DEVICE UNSOLICITED RESULTS Final Result Performing Organization Address [facility]/ZIP Co de Phone Number [facility] [address] [place] [address], [place] [phone] * (ABNORMAL) POCT Glucose, blood (07/19/2024 4:01 PM EST) Glucose POCT 139(H) 70 - 100 mg/dL 07/19/2024 4:02 PM EST [facility] Blood Capillary blood specimen / Unknown 07/19/2024 4:01 PM EST 07/19/2024 4:03 PM EST us Lencho Stuart MD LAB POINT OF CARE TE ST DOCKED DEVICE UNSOLICITED RESULTS Final Result Performing Organization Address City/[facility]/ZIP Co de Phone Number [facility] [address] [place] [address], * (ABNORMAL) Hemoglobin and hematocrit (07/19/2024 2:31 PM EST) Hemoglobin 7.6(L) 11.5 - 16.0 g/dL LAB HEMETOLOGY METHOD 07/19/2024 3:11 PM EST [facility] Hematocrit 23.8(L) 35.0 - 47.0 % LAB HEMETOLOGY METHOD 07/19/2024 3:11 PM EST [facility] Blood Venous blood specimen / Unknown Venipuncture / Unknown 07/19/2024 2:31 PM EST 07/19/2024 3:05 PM EST Lencho Stuart MD LAB BLOOD ORDERABLES Final R esult Performing Organization Address City/[facility]/ZIP Co de Phone Number [facility] [address] [place] [address], * Creatinine, urine, random (07/19/2024 12:01 PM EST) Creatinine, Urine 41.0 mg/dL LAB CHEMISTRY METHOD 07/19/2024 1:17 PM EST [facility] Urine Urine specimen obtained by clean catch procedure / Unknown Non-blood Collection / Unknown 07/19/2024 12:01 PM EST 07/19/2024 12:30 PM EST Miguel Quiles MD LAB URINE ORDERABLES Final Res ult [facility] [address] [place] [address], * (ABNORMAL) Microalbumin creatinine urine ratio (07/19/2024 12:01 PM EST) Creatinine, Urine 41.0 mg/dL LAB CHEMISTRY METHOD 07/19/2024 1:46 PM EST [facility] Microalb, Ur 1,480.0(H ) 0.0 - 29.0 mg/L LAB CHEMISTRY METHOD 07/19/2024 1:46 PM EST [facility] Microalb/Crea t Ratio 3,610(H) <30 mg/g creat LAB CHEMISTRY METHOD 07/19/2024 1:46 PM EST [facility] Urine Urine specimen obtained by clean catch procedure / Unknown Non-blood Collection / Unknown 07/19/2024 12:01 PM EST 07/19/2024 12:30 PM EST Miguel Quiles MD LAB URINE ORDERABLES Final Res ult [facility] [address] [place] [address], [place] [phone] * (ABNORMAL) POCT Glucose, blood (07/19/2024 11:32 AM EST) Glucose POCT 132(H) 70 - 100 mg/dL 07/19/2024 11:33 AM EST [facility] Blood Capillary blood specimen / Unknown 07/19/2024 11:32 AM EST 07/19/2024 11:34 AM EST us Lencho Stuart MD LAB POINT OF CARE TE ST DOCKED DEVICE UNSOLICITED RESULTS Final Result [facility] [address] [place] [address], [place] [phone] * (ABNORMAL) POCT Glucose, blood (07/19/2024 9:07 AM EST) Glucose POCT 117(H) 70 - 100 mg/dL 07/19/2024 9:07 AM EST [facility] Blood Capillary blood specimen / Unknown 07/19/2024 9:07 AM EST 07/19/2024 9:09 AM EST us Lencho Stuart MD LAB POINT OF CARE TE ST DOCKED DEVICE UNSOLICITED RESULTS Final Result [facility] [address] [place] [address], [place] [phone] * (ABNORMAL) CBC auto differential (07/19/2024 7:55 AM EST) WBC 25.0(H) 4.8 - 10.8 K/mcL LAB HEMETOLOGY METHOD 07/19/2024 8:36 AM EST [facility] RBC 2.80(L) 3.80 - 4.80 M/mcL LAB HEMETOLOGY METHOD 07/19/2024 8:36 AM [facility] Hemoglobin 7.0(L) 11.5 - 16.0 g/dL LAB HEMETOLOGY METHOD 07/19/2024 8:36 AM [facility] Hematocrit 22.2(L) 35.0 - 47.0 % LAB HEMETOLOGY METHOD 07/19/2024 8:36 AM [facility] MCV 79.0 79.0 - 98.0 FL LAB HEMETOLOGY METHOD 07/19/2024 8:36 AM [facility] MCH 24.9(L) 27.0 - 32.0 pcg LAB HEMETOLOGY METHOD 07/19/2024 8:36 AM [facility] MCHC 31.5(L) 32.0 - 37.0 g/dL LAB HEMETOLOGY METHOD 07/19/2024 8:36 AM [facility] RDW 23.9(H) 11.0 - 15.0 % LAB HEMETOLOGY METHOD 07/19/2024 8:36 AM [facility] Platelets 218 130 - 400 K/mcL LAB HEMETOLOGY METHOD 07/19/2024 8:36 AM [facility] MPV 10.6 7.0 - 11.0 FL LAB HEMETOLOGY METHOD 07/19/2024 8:36 AM [facility] NRBC 0.0 <1.0 % LAB HEMETOLOGY METHOD 07/19/2024 8:36 AM [facility] NRBC Absolute 0.00 <0.10 K/mcL LAB HEMETOLOGY METHOD 07/19/2024 8:36 AM [facility] Neutrophils Relative 87.6 % LAB HEMETOLOGY METHOD 07/19/2024 8:36 AM [facility] Comment:This is an appended report. These results have been appended to a previously preliminary verified report. Lymphocytes Relative 3.0 % LAB HEMETOLOGY METHOD 07/19/2024 8:36 AM [facility] Comment:This is an appended report. These results have been appended to a previously preliminary verified report. Monocytes Relative 4.6 % LAB HEMETOLOGY METHOD 07/19/2024 8:36 AM [facility] Comment:This is an appended report. These results have been appended to a previously preliminary verified report. Eosinophils Relative 3.0 % LAB HEMETOLOGY METHOD 07/19/2024 8:36 AM [facility] Comment:This is an appended report. These results have been appended to a previously preliminary verified report. Basophils Relative 0.2 % LAB HEMETOLOGY METHOD 07/19/2024 8:36 AM [facility] Comment:This is an appended report. These results have been appended to a previously preliminary verified report. Immature Granulocytes Relative 1.6 % LAB HEMETOLOGY METHOD 07/19/2024 8:36 AM [facility] Comment:This is an appended report. These results have been appended to a previously preliminary verified report. Neutrophils Absolute 21.89(H) 1.50 - 7.00 K/mcL LAB HEMETOLOGY METHOD 07/19/2024 8:36 AM [facility] Comment:This is an appended report. These results have been appended to a previously preliminary verified report. Lymphocytes Absolute 0.76(L) 1.00 - 5.00 K/[facility] LAB HEMETOLOGY METHOD 07/19/2024 8:36 AM EST [facility] Comment:This is an appended report. These results have been appended to a previously preliminary verified report. Monocytes Absolute 1.14(H) 0.20 - 1.00 K/[facility] LAB HEMETOLOGY METHOD 07/19/2024 8:36 AM EST [facility] Comment:This is an appended report. These results have been appended to a previously preliminary verified report. Eosinophils Absolute 0.76(H) 0.00 - 0.50 K/[facility] 07/[facility] 8:36 AM EST [facility] Comment:This is an appended report. These results have been appended to a previously preliminary verified report. Basophils Absolute 0.05 0.00 - 0.20 K/[facility] 07/19/2024 8:36 AM EST [facility] Comment:This is an appended report. These results have been appended to a previously preliminary verified report. Immature Granulocytes Absolute 0.40(H) 0.00 - 0.03 K/[facility] 07/19/2024 8:36 AM EST [facility] Comment:This is an appended report. These results have been appended to a previously preliminary verified report. Blood Venous blood specimen / Unknown Venipuncture / Unknown 07/19/2024 7:55 AM EST 07/19/2024 7:55 AM EST us Estate Sade GUERRERO LAB BLOOD ORDERABLES Final R esult [facility] [address] [place] [address], * (ABNORMAL) Parathyroid hormone related protein (07/19/2024 7:55 AM EST) [facility] PTH-related Protein (PTHrP) 24(H) 11 - [...] analytical performance characteristics have been determined by [facility]. It has not been cleared or approved by FDA. This assay has been validated pursuant to the CLIA regulations and is used for clinical purposes. Test Performed at: [facility] [id number] [place], [place] ??[id number] ? I Bethany GUERRERO, PhD, NINA Blood Venous blood specimen / Unknown Venipuncture / Unknown 07/19/2024 7:55 AM EST 07/19/2024 7:55 AM EST Jesus Manuel HEDRICK LAB BLOOD ORDERABLES Final Resu lt [facility] [address] [place] [address] * (ABNORMAL) Anti-neutrophilic cytoplasmic antibody (07/19/2024 6:52 AM EST) [facility] Myeloperoxidase Ab Negative Negative LAB CHEMISTRY METHOD 07/20/2024 12:10 PM EST [facility] Myeloperoxidase Ab, Quant 1 <=20 units LAB CHEMISTRY METHOD 07/20/2024 12:10 PM EST [facility] Proteinase-3 Ab Positive(A ) Negative LAB CHEMISTRY METHOD 07/20/2024 12:10 PM EST [facility] Proteinase-3 Ab Quant 165(H) <=20 units LAB CHEMISTRY METHOD 07/20/2024 12:10 PM EST [facility] Blood Venous blood specimen / Unknown Venipuncture / Unknown 07/19/2024 6:52 AM EST 07/19/2024 7:21 AM EST Miguel Quiles MD LAB BLOOD ORDERABLES Final Res ult Performing Organization Address [facility]/ZIP Co de Phone Number [facility] [address] [place] [address], [place] [phone] * Anti-Xa - Every 6 Hours (07/19/2024 6:52 AM EST) Pathologist [facility] Heparin Anti-Xa 0.37 0.30 - 0.70 I Unit/mL LAB COAGULATION METHOD 07/19/2024 7:38 AM EST [facility] Blood Venous blood specimen / Unknown Venipuncture / Unknown 07/19/2024 6:52 AM EST 07/19/2024 7:21 AM EST Narrative [facility] - 07/19/2024 7:38 AM EST Therapeutic range listed is for Unfractionated Heparin. LMW Heparin therapeutic range: 0.50-1.20 IU/mL Lencoh Stuart MD LAB BLOOD ORDERABLES Final R esult Performing Organization Address [facility]/ZIP Co de Phone Number [facility] [address] [place] [address], [place] [phone] * (ABNORMAL) Basic metabolic panel (07/19/2024 6:52 AM EST) [facility] Sodium 128(L) 133 - 145 mmol/L LAB CHEMISTRY METHOD 07/19/2024 8:56 AM EST [facility] Potassium 4.9 3.5 - 5.5 mmol/L LAB CHEMISTRY METHOD 07/19/2024 8:56 AM EST [facility] Chloride 93(L) 96 - 110 mmol/L LAB CHEMISTRY METHOD 07/19/2024 8:56 AM EST [facility] CO2 28 21 - 32 mmol/L LAB CHEMISTRY METHOD 07/19/2024 8:56 AM EST [facility] Anion Gap 7 3 - 11 LAB CHEMISTRY METHOD 07/19/2024 8:56 AM [facility] Glucose 170(H) 70 - 100 mg/dL LAB CHEMISTRY METHOD 07/19/2024 8:56 AM [facility] BUN 83(H) 5 - 25 mg/dL LAB CHEMISTRY METHOD 07/19/2024 8:56 AM [facility] Creatinine 5.96(H) 0.50 - 1.10 mg/dL LAB CHEMISTRY METHOD 07/19/2024 8:56 AM [facility] eGFR 7(L) >=60 mL/min/1. 73m2 LAB CHEMISTRY METHOD 07/19/2024 8:56 AM [facility] Comment:Calculation based on the??Chronic Kidney Disease Epidemiology Collaboration (CKD-EPI) equation refit??without adjustment for race. BUN/Creatinine Ratio 13.9 LAB CHEMISTRY METHOD 07/19/2024 8:56 AM [facility] Calcium 7.7(L) 8.5 - 10.5 mg/dL LAB CHEMISTRY METHOD 07/19/2024 8:56 AM [facility] Blood Venous blood specimen / Unknown Venipuncture / Unknown 07/19/2024 6:52 AM EST 07/19/2024 7:21 AM EST us Estdimas Stuart MD LAB BLOOD ORDERABLES Final R esult [facility] [address] [place] [address], * (ABNORMAL) POCT Glucose, blood (07/18/2024 8:27 PM EST) Glucose POCT 193(H) 70 - 100 mg/dL 07/18/2024 8:27 PM EST [facility] Blood Capillary blood specimen / Unknown 07/18/2024 8:27 PM EST 07/18/2024 8:28 PM EST us Lencho Stuart MD LAB POINT OF CARE TE ST DOCKED DEVICE UNSOLICITED RESULTS Final Result [facility] [address] [place] [address], [place] [phone] * Anti-Xa - Every 6 Hours (07/18/2024 6:07 PM EST) Heparin Anti-Xa 0.42 0.30 - 0.70 I Unit/mL LAB COAGULATION METHOD 07/18/2024 7:21 PM EST [facility] Blood Venous blood specimen / Unknown Venipuncture / Unknown 07/18/2024 6:07 PM EST 07/18/2024 7:00 PM EST Narrative [facility] - 07/18/2024 7:21 PM EST Therapeutic range listed is for Unfractionated Heparin. LMW Heparin therapeutic range: 0.50-1.20 IU/mL us Kwesi Guido MD LAB BLOOD ORDERABLES F inal Result Performing Organization Address [facility]/ZIP Co de Phone Number [facility] [address] [place] [address], [place] [phone] * (ABNORMAL) POCT Glucose, blood (07/18/2024 4:00 PM EST) [facility] Glucose POCT 210(H) 70 - 100 mg/dL 07/18/2024 4:01 PM EST [facility] Blood Capillary blood specimen / Unknown 07/18/2024 4:00 PM EST 07/18/2024 4:02 PM EST us Lencho Stuart MD LAB POINT OF CARE TE ST DOCKED DEVICE UNSOLICITED RESULTS Final Result [facility] [address] [place] [address], [place] [phone] * Anti-Xa - Every 6 Hours (07/18/2024 12:43 PM EST) Heparin Anti-Xa 0.39 0.30 - 0.70 I Unit/mL LAB COAGULATION METHOD 07/18/2024 1:15 PM EST [facility] Blood Venous blood specimen / Unknown Venipuncture / Unknown 07/18/2024 12:43 PM EST 07/18/2024 12:49 PM EST Narrative [facility] - 07/18/2024 1:15 PM EST Therapeutic range listed is for Unfractionated Heparin. LMW Heparin therapeutic range: 0.50-1.20 IU/mL us Kwesi Guido MD LAB BLOOD ORDERABLES F inal Result [facility] [address] [place] [address], [place] [phone] * (ABNORMAL) POCT Glucose, blood (07/18/2024 11:17 AM EST) Glucose POCT 244(H) 70 - 100 mg/dL 07/18/2024 11:19 AM EST [facility] Blood Capillary blood specimen / Unknown 07/18/2024 11:17 AM EST 07/18/2024 11:21 AM EST Lencho Stuart MD LAB POINT OF CARE TE ST DOCKED DEVICE UNSOLICITED RESULTS Final Result [facility] [address] [place] [address], [place] [phone] * (ABNORMAL) POCT Glucose, blood (07/18/2024 7:54 AM EST) Glucose POCT 219(H) 70 - 100 mg/dL 07/18/2024 7:54 AM [facility] Blood Capillary blood specimen / Unknown 07/18/2024 7:54 AM EST 07/18/2024 7:56 AM EST Lencho Stuart MD LAB POINT OF CARE TE ST DOCKED DEVICE UNSOLICITED RESULTS Final Result Performing Organization Address City/[facility]/ZIP Co de Phone Number [facility] [address] [place] [address], [place] [phone] * Robertson urine culture tube (07/18/2024 6:10 AM EST) Pathologist [facility] Extra Tube Hold for add-ons. 07/18/2024 8:01 AM [facility] Comment:Auto resulted. Urine Urine specimen obtained by clean catch procedure / Unknown 07/18/2024 6:10 AM EST 07/18/2024 6:37 AM EST Lencho Stuart MD LAB URINE ORDERABLES Final R esult Performing Organization Address City/[facility]/ZIP Co de Phone Number [facility] [address] [place] [address], [place] [phone] * (ABNORMAL) Urinalysis microscopic only (07/18/2024 6:09 AM EST) RBC, Urine 10(H) 0 - 4 /HPF 07/18/2024 7:53 AM [facility] WBC, Urine >100(H) 0 - 4 /HPF 07/18/2024 7:53 AM [facility] Squamous Epithelial, Urine 10 0 - 60 /LPF 07/18/2024 7:53 AM [facility] Non-Squamous Epithelial, Urine 2-5 Transitional epithelial cells. /LPF 07/18/2024 7:53 AM [facility] Bacteria, Urine Many(A) Negative /HPF 07/18/2024 7:53 AM EST [facility] Other Casts, Urine Rare Coarse Granular casts. /LPF 07/18/2024 7:53 AM EST [facility] Urine Indwelling urinary catheter / Unknown Non-blood Collection / Unknown 07/18/2024 6:09 AM EST 07/18/2024 6:36 AM EST us Kwesi Guido MD LAB URINE ORDERABLES F inal Result Performing Organization Address City/[facility]/ZIP Co de Phone Number [facility] [address] [place] [address], [place] [phone] * Anti-Xa - Every 6 Hours (07/18/2024 6:07 AM EST) Heparin Anti-Xa 0.34 0.30 - 0.70 I Unit/mL LAB COAGULATION METHOD 07/18/2024 7:02 AM EST [facility] Blood Venous blood specimen / Unknown 07/18/2024 6:07 AM EST 07/18/2024 6:34 AM EST Narrative [facility] - 07/18/2024 7:02 AM EST Therapeutic range listed is for Unfractionated Heparin. LMW Heparin therapeutic range: 0.50-1.20 IU/mL us Kwesi Guido MD LAB BLOOD ORDERABLES F inal Result Performing Organization Address City/[facility]/ZIP Co de Phone Number [facility] [address] [place] [address], [place] [phone] * (ABNORMAL) CBC auto differential (07/18/2024 6:07 AM EST) WBC 25.5(H) 4.8 - 10.8 K/mcL LAB HEMETOLOGY METHOD 07/18/2024 7:23 AM EST [facility] RBC 3.20(L) 3.80 - 4.80 M/mcL LAB HEMETOLOGY METHOD 07/18/2024 7:23 AM [facility] Hemoglobin 7.8(L) 11.5 - 16.0 g/dL LAB HEMETOLOGY METHOD 07/18/2024 7:23 AM [facility] Hematocrit 24.9(L) 35.0 - 47.0 % LAB HEMETOLOGY METHOD 07/18/2024 7:23 AM [facility] MCV 77.6(L) 79.0 - 98.0 FL LAB HEMETOLOGY METHOD 07/18/2024 7:23 AM [facility] MCH 24.3(L) 27.0 - 32.0 pcg LAB HEMETOLOGY METHOD 07/18/2024 7:23 AM [facility] MCHC 31.3(L) 32.0 - 37.0 g/dL LAB HEMETOLOGY METHOD 07/18/2024 7:23 AM [facility] RDW 24.1(H) 11.0 - 15.0 % LAB HEMETOLOGY METHOD 07/18/2024 7:23 AM [facility] Platelets 242 130 - 400 K/mcL LAB HEMETOLOGY METHOD 07/18/2024 7:23 AM [facility] MPV 9.6 7.0 - 11.0 FL LAB HEMETOLOGY METHOD 07/18/2024 7:23 AM [facility] NRBC 0.0 <1.0 % LAB HEMETOLOGY METHOD 07/18/2024 7:23 AM [facility] NRBC Absolute 0.00 <0.10 K/mcL LAB HEMETOLOGY METHOD 07/18/2024 7:23 AM [facility] Neutrophils Relative 89.3 % LAB HEMETOLOGY METHOD 07/18/2024 7:23 AM [facility] Comment:This is an appended report. These results have been appended to a previously preliminary verified report. Lymphocytes Relative 2.8 % LAB HEMETOLOGY METHOD 07/18/2024 7:23 AM [facility] Comment:This is an appended report. These results have been appended to a previously preliminary verified report. Monocytes Relative 4.2 % LAB HEMETOLOGY METHOD 07/18/2024 7:23 AM [facility] Comment:This is an appended report. These results have been appended to a previously preliminary verified report. Eosinophils Relative 1.9 % LAB HEMETOLOGY METHOD 07/18/2024 7:23 AM [facility] Comment:This is an appended report. These results have been appended to a previously preliminary verified report. Basophils Relative 0.2 % LAB HEMETOLOGY METHOD 07/18/2024 7:23 AM [facility] Comment:This is an appended report. These results have been appended to a previously preliminary verified report. Immature Granulocytes Relative 1.6 % LAB HEMETOLOGY METHOD 07/18/2024 7:23 AM [facility] Comment:This is an appended report. These results have been appended to a previously preliminary verified report. Neutrophils Absolute 22.74(H) 1.50 - 7.00 K/mcL LAB HEMETOLOGY METHOD 07/18/2024 7:23 AM [facility] Comment:This is an appended report. These results have been appended to a previously preliminary verified report. Lymphocytes Absolute 0.72(L) 1.00 - 5.00 K/mcL LAB HEMETOLOGY METHOD 07/18/2024 7:23 AM [facility] Comment:This is an appended report. These results have been appended to a previously preliminary verified report. Monocytes Absolute 1.06(H) 0.20 - 1.00 K/mcL LAB HEMETOLOGY METHOD 07/18/2024 7:23 AM [facility] Comment:This is an appended report. These results have been appended to a previously preliminary verified report. Eosinophils Absolute 0.49 0.00 - 0.50 K/mcL LAB HEMETOLOGY METHOD 07/18/2024 7:23 AM EST [facility] Comment:This is an appended report. These results have been appended to a previously preliminary verified report. Basophils Absolute 0.04 0.00 - 0.20 K/mcL LAB [facility] 07/18/2024 7:23 AM EST [facility] Comment:This is an appended report. These results have been appended to a previously preliminary verified report. Immature Granulocytes Absolute 0.41(H) 0.00 - 0.03 K/mcL LAB [facility] METHOD 07/18/2024 7:23 AM EST [facility] Comment:This is an appended report. These results have been appended to a previously preliminary verified report. Blood Venous blood specimen / Unknown Venipuncture / Unknown 07/18/2024 6:07 AM EST 07/18/2024 7:16 AM EST us Kwesi Guido MD LAB BLOOD ORDERABLES F inal Result [facility] [address] [place] [address], [place] [phone] * (ABNORMAL) Calcium, ionized (07/18/2024 6:07 AM EST) Calcium Ionized 4.28(L) 4.50 - 5.30 mg/dL 07/18/2024 6:46 AM EST [facility] Blood Venous blood specimen / Unknown 07/18/2024 6:07 AM EST 07/18/2024 6:33 AM EST us Kwesi Guido MD LAB BLOOD ORDERABLES F inal Result [facility] [address] [place] [address], [place] [phone] * (ABNORMAL) Basic metabolic panel (07/18/2024 6:07 AM EST) Sodium 132(L) 133 - 145 mmol/L LAB CHEMISTRY METHOD 07/18/2024 7:48 AM [facility] Potassium 4.4 3.5 - 5.5 mmol/L LAB CHEMISTRY METHOD 07/18/2024 7:48 AM [facility] Chloride 95(L) 96 - 110 mmol/L LAB CHEMISTRY METHOD 07/18/2024 7:48 AM [facility] CO2 27 21 - 32 mmol/L LAB CHEMISTRY METHOD 07/18/2024 7:48 AM [facility] Anion Gap 10 3 - 11 LAB CHEMISTRY METHOD 07/18/2024 7:48 AM [facility] Glucose 225(H) 70 - 100 mg/dL LAB CHEMISTRY METHOD 07/18/2024 7:48 AM [facility] BUN 67(H) 5 - 25 mg/dL LAB CHEMISTRY METHOD 07/18/2024 7:48 AM [facility] Creatinine 4.92(H) 0.50 - 1.10 mg/dL LAB CHEMISTRY METHOD 07/18/2024 7:48 AM [facility] eGFR 8(L) >=60 mL/min/1. 73m2 LAB CHEMISTRY METHOD 07/18/2024 7:48 AM [facility] Comment:Calculation based on the??Chronic Kidney Disease Epidemiology Collaboration (CKD-EPI) equation refit??without adjustment for race. BUN/Creatinine Ratio 13.6 LAB CHEMISTRY METHOD 07/18/2024 7:48 AM [facility] Calcium 7.5(L) 8.5 - 10.5 mg/dL LAB CHEMISTRY METHOD 07/18/2024 7:48 AM [facility] Blood Venous blood specimen / Unknown 07/18/2024 6:07 AM EST 07/18/2024 6:34 AM EST us Kwesi Guido MD LAB BLOOD ORDERABLES F inal Result Performing Organization Address City/[facility]/ZIP Co de Phone Number [facility] [address] [place] [address], [place] [phone] * (ABNORMAL) Anti-Xa - Every 6 Hours (07/18/2024 12:19 AM EST) Pathologist [facility] Heparin Anti-Xa 0.19(L) 0.30 - 0.70 I Unit/mL LAB COAGULATION METHOD 07/18/2024 12:48 AM EST [facility] Blood Venous blood specimen / Unknown Venipuncture / Unknown 07/18/2024 12:19 AM EST 07/18/2024 12:38 AM EST Narrative [facility] - 07/18/2024 12:48 AM EST Therapeutic range listed is for Unfractionated Heparin. LMW Heparin therapeutic range: 0.50-1.20 IU/mL us Kwesi Guido MD LAB BLOOD ORDERABLES F inal Result Performing Organization Address [facility] Co de Phone Number [facility] [address] [place] [address], [place] [phone] * (ABNORMAL) POCT Glucose, blood (07/17/2024 9:12 PM EST) [facility] Glucose POCT 240(H) 70 - 100 mg/dL 07/17/2024 9:13 PM EST [facility] Blood Capillary blood specimen / Unknown 07/17/2024 9:12 PM EST 07/17/2024 9:14 PM EST us Kwesi Guido MD LAB POINT OF C ARE TEST DOCKED DEVICE UNSOLICITED RESULTS Final Result [facility] [address] [place] [address], [place] [phone] * Anti-Xa - Every 6 Hours (07/17/2024 6:37 PM EST) [facility] Heparin Anti-Xa 0.30 0.30 - 0.70 I Unit/mL LAB COAGULATION METHOD 07/17/2024 7:18 PM EST [facility] Blood Venous blood specimen / Unknown Venipuncture / Unknown 07/17/2024 6:37 PM EST 07/17/2024 7:06 PM EST Narrative [facility] - 07/17/2024 7:18 PM EST Therapeutic range listed is for Unfractionated Heparin. LMW Heparin therapeutic range: 0.50-1.20 IU/mL us Kwesi Guido MD LAB BLOOD ORDERABLES F inal Result [facility] [address] [place] [address], [place] [phone] * (ABNORMAL) POCT Glucose, blood (07/17/2024 4:15 PM EST) [facility] Glucose POCT 238(H) 70 - 100 mg/dL 07/17/2024 4:16 PM EST [facility] Blood Capillary blood specimen / Unknown 07/17/2024 4:15 PM EST 07/17/2024 4:17 PM EST us Kwesi Guido MD LAB POINT OF C ARE TEST DOCKED DEVICE UNSOLICITED RESULTS Final Result [facility] [address] [place] [address], [place] [phone] * Anti-Xa - Every 6 Hours (07/17/2024 12:29 PM EST) Heparin Anti-Xa 0.37 0.30 - 0.70 I Unit/mL LAB COAGULATION METHOD 07/17/2024 1:11 PM EST [facility] Blood Venous blood specimen / Unknown Venipuncture / Unknown 07/17/2024 12:29 PM EST 07/17/2024 12:35 PM EST Narrative [facility] - 07/17/2024 1:11 PM EST Therapeutic range listed is for Unfractionated Heparin. LMW Heparin therapeutic range: 0.50-1.20 IU/mL us Kwesi Guido MD LAB BLOOD ORDERABLES F inal Result [facility] [address] [place] [address], [place] [phone] * (ABNORMAL) POCT Glucose, blood (07/17/2024 11:19 AM EST) Glucose POCT 307(H) 70 - 100 mg/dL 07/17/2024 11:25 AM EST [facility] Blood Capillary blood specimen / Unknown 07/17/2024 11:19 AM EST 07/17/2024 11:26 AM EST us Kwesi Guido MD LAB POINT OF C ARE TEST DOCKED DEVICE UNSOLICITED RESULTS Final Result [facility] [address] [place] [address], [place] [phone] * (ABNORMAL) POCT Glucose, blood (07/17/2024 7:57 AM EST) Glucose POCT 258(H) 70 - 100 mg/dL 07/17/2024 7:58 AM EST [facility] Blood Capillary blood specimen / Unknown 07/17/2024 7:57 AM EST 07/17/2024 7:59 AM EST us Kwesi Guido MD LAB POINT OF C ARE TEST DOCKED DEVICE UNSOLICITED RESULTS Final Result Performing Organization Address [facility]/ZIP Co de Phone Number [facility] [address] [place] [address], [place] [phone] * (ABNORMAL) Anti-Xa - Every 6 Hours (07/17/2024 6:30 AM EST) [facility] Heparin Anti-Xa 0.20(L) 0.30 - 0.70 I Unit/mL LAB COAGULATION METHOD 07/17/2024 7:43 AM EST [facility] Blood Venous blood specimen / Unknown Venipuncture / Unknown 07/17/2024 6:30 AM EST 07/17/2024 7:06 AM EST Narrative [facility] - 07/17/2024 7:43 AM EST Therapeutic range listed is for Unfractionated Heparin. LMW Heparin therapeutic range: 0.50-1.20 IU/mL us Kwesi Guido MD LAB BLOOD ORDERABLES F inal Result Performing Organization Address City/[facility]/ZIP Co de Phone Number [facility] [address] [place] [address], [place] [phone] * (ABNORMAL) CBC auto differential (07/17/2024 6:30 AM EST) [facility] WBC 23.0(H) 4.8 - 10.8 K/mcL LAB HEMETOLOGY METHOD 07/17/2024 8:50 AM EST [facility] RBC 3.30(L) 3.80 - 4.80 M/mcL LAB HEMETOLOGY METHOD 07/17/2024 8:50 AM EST [facility] Hemoglobin 8.0(L) 11.5 - 16.0 g/dL LAB HEMETOLOGY METHOD 07/17/2024 8:50 AM EST [facility] Hematocrit 25.6(L) 35.0 - 47.0 % LAB HEMETOLOGY METHOD 07/17/2024 8:50 AM [facility] MCV 78.5(L) 79.0 - 98.0 FL LAB HEMETOLOGY METHOD 07/17/2024 8:50 AM [facility] MCH 24.5(L) 27.0 - 32.0 pcg LAB HEMETOLOGY METHOD 07/17/2024 8:50 AM [facility] MCHC 31.3(L) 32.0 - 37.0 g/dL LAB HEMETOLOGY METHOD 07/17/2024 8:50 AM [facility] RDW 23.9(H) 11.0 - 15.0 % LAB HEMETOLOGY METHOD 07/17/2024 8:50 AM [facility] Platelets 252 130 - 400 K/mcL LAB HEMETOLOGY METHOD 07/17/2024 8:50 AM [facility] MPV 9.9 7.0 - 11.0 FL LAB HEMETOLOGY METHOD 07/17/2024 8:50 AM [facility] NRBC 0.0 <1.0 % LAB HEMETOLOGY METHOD 07/17/2024 8:50 AM [facility] NRBC Absolute 0.00 <0.10 K/mcL LAB HEMETOLOGY METHOD 07/17/2024 8:50 AM [facility] Neutrophils Relative 90.9 % LAB HEMETOLOGY METHOD 07/17/2024 8:50 AM [facility] Lymphocytes Relative 2.6 % LAB HEMETOLOGY METHOD 07/17/2024 8:50 AM [facility] Monocytes Relative 4.8 % LAB HEMETOLOGY METHOD 07/17/2024 8:50 AM [facility] Eosinophils Relative 0.5 % LAB HEMETOLOGY METHOD 07/17/2024 8:50 AM EST [facility] Basophils Relative 0.1 % LAB HEMETOLOGY METHOD 07/17/2024 8:50 AM EST [facility] Immature Granulocytes Relative 1.1 % LAB HEMETOLOGY METHOD 07/17/2024 8:50 AM EST [facility] Neutrophils Absolute 20.92(H) 1.50 - 7.00 K/mcL LAB HEMETOLOGY METHOD 07/17/2024 8:50 AM EST [facility] Lymphocytes Absolute 0.60(L) 1.00 - 5.00 K/mcL LAB HEMETOLOGY METHOD 07/17/2024 8:50 AM EST [facility] Monocytes Absolute 1.11(H) 0.20 - 1.00 K/mcL LAB HEMETOLOGY METHOD 07/17/2024 8:50 AM EST [facility] Eosinophils Absolute 0.11 0.00 - 0.50 K/mcL LAB HEMETOLOGY METHOD 07/17/2024 8:50 AM EST [facility] Basophils Absolute 0.03 0.00 - 0.20 K/mcL LAB HEMETOLOGY METHOD 07/17/2024 8:50 AM EST [facility] Immature Granulocytes Absolute 0.26(H) 0.00 - 0.03 K/mcL LAB HEMETOLOGY METHOD 07/17/2024 8:50 AM EST [facility] Blood Venous blood specimen / Unknown Venipuncture / Unknown 07/17/2024 6:30 AM EST 07/17/2024 7:06 AM EST us Kwesi Guido MD LAB BLOOD ORDERABLES F inal Result [facility] [address] [place] [address], * (ABNORMAL) CBC - Every 3 Days (07/17/2024 6:30 AM EST) [facility] WBC 23.0(H) 4.8 - 10.8 K/mcL LAB HEMETOLOGY METHOD 07/17/2024 8:12 AM [facility] RBC 3.30(L) 3.80 - 4.80 M/mcL LAB HEMETOLOGY METHOD 07/17/2024 8:12 AM [facility] Hemoglobin 8.0(L) 11.5 - 16.0 g/dL LAB HEMETOLOGY METHOD 07/17/2024 8:12 AM [facility] Hematocrit 25.6(L) 35.0 - 47.0 % LAB HEMETOLOGY METHOD 07/17/2024 8:12 AM [facility] MCV 78.5(L) 79.0 - 98.0 FL LAB HEMETOLOGY METHOD 07/17/2024 8:12 AM [facility] MCH 24.5(L) 27.0 - 32.0 pcg LAB HEMETOLOGY METHOD 07/17/2024 8:12 AM [facility] MCHC 31.3(L) 32.0 - 37.0 g/dL LAB HEMETOLOGY METHOD 07/17/2024 8:12 AM [facility] RDW 23.9(H) 11.0 - 15.0 % LAB HEMETOLOGY METHOD 07/17/2024 8:12 AM [facility] Platelets 252 130 - 400 K/mcL LAB HEMETOLOGY METHOD 07/17/2024 8:12 AM [facility] MPV 9.9 7.0 - 11.0 FL LAB HEMETOLOGY METHOD 07/17/2024 8:12 AM [facility] NRBC 0.0 <1.0 % LAB HEMETOLOGY METHOD 07/17/2024 8:12 AM [facility] NRBC Absolute 0.00 <0.10 K/mcL LAB HEMETOLOGY METHOD 07/17/2024 8:12 AM EST [facility] Blood Venous blood specimen / Unknown Venipuncture / Unknown 07/17/2024 6:30 AM EST 07/17/2024 7:06 AM EST us Kwesi Guido MD LAB BLOOD ORDERABLES F inal Result Performing Organization Address City/[facility]/ZIP Co de Phone Number [facility] [address] [place] [address], [place] [phone] * Phosphorus (07/17/2024 6:30 AM EST) Phosphorus 2.9 2.5 - 4.5 mg/dL LAB CHEMISTRY METHOD 07/17/2024 8:09 AM EST [facility] Blood Venous blood specimen / Unknown Venipuncture / Unknown 07/17/2024 6:30 AM EST 07/17/2024 7:06 AM EST us Kwesi Guido MD LAB BLOOD ORDERABLES F inal Result Performing Organization Address [facility] Co de Phone Number [facility] [address] [place] [address], [place] [phone] * Magnesium (07/17/2024 6:30 AM EST) Magnesium 2.2 1.9 - 2.6 mg/dL LAB CHEMISTRY METHOD 07/17/2024 8:09 AM EST [facility] Blood Venous blood specimen / Unknown Venipuncture / Unknown 07/17/2024 6:30 AM EST 07/17/2024 7:06 AM EST us Kwesi Guido MD LAB BLOOD ORDERABLES F inal Result Performing Organization Address City/[facility]/ZIP Co de Phone Number [facility] [address] [place] [address], [place] [phone] * (ABNORMAL) Basic metabolic panel (07/17/2024 6:30 AM EST) Sodium 133 133 - 145 mmol/L LAB CHEMISTRY METHOD 07/17/2024 8:09 AM [facility] Potassium 3.8 3.5 - 5.5 mmol/L LAB CHEMISTRY METHOD 07/17/2024 8:09 AM [facility] Chloride 96 96 - 110 mmol/L LAB CHEMISTRY METHOD 07/17/2024 8:09 AM [facility] CO2 26 21 - 32 mmol/L LAB CHEMISTRY METHOD 07/17/2024 8:09 AM [facility] Anion Gap 11 3 - 11 LAB CHEMISTRY METHOD 07/17/2024 8:09 AM [facility] Glucose 293(H) 70 - 100 mg/dL LAB CHEMISTRY METHOD 07/17/2024 8:09 AM [facility] BUN 53(H) 5 - 25 mg/dL LAB CHEMISTRY METHOD 07/17/2024 8:09 AM [facility] Creatinine 4.03(H) 0.50 - 1.10 mg/dL LAB CHEMISTRY METHOD 07/17/2024 8:09 AM [facility] eGFR 11(L) >=60 mL/min/1. 73m2 LAB CHEMISTRY METHOD 07/17/2024 8:09 AM [facility] Comment:Calculation based on the??Chronic Kidney Disease Epidemiology Collaboration (CKD-EPI) equation refit??without adjustment for race. BUN/Creatinine Ratio 13.2 LAB CHEMISTRY METHOD 07/17/2024 8:09 AM [facility] Calcium 7.7(L) 8.5 - 10.5 mg/dL LAB CHEMISTRY METHOD 07/17/2024 8:09 AM [facility] Blood Venous blood specimen / Unknown Venipuncture / Unknown 07/17/2024 6:30 AM EST 07/17/2024 7:06 AM EST us Kwesi Guido MD LAB BLOOD ORDERABLES F inal Result Performing Organization Address City/[facility]/ZIP Co de Phone Number [facility] [address] [place] [address], [place] [phone] * (ABNORMAL) Anti-Xa - Every 6 Hours (07/17/2024 12:16 AM EST) [facility] Heparin Anti-Xa 0.14(L) 0.30 - 0.70 I Unit/mL LAB COAGULATION METHOD 07/17/2024 12:45 AM EST [facility] Blood Venous blood specimen / Unknown Venipuncture / Unknown 07/17/2024 12:16 AM EST 07/17/2024 12:35 AM EST Narrative [facility] - 07/17/2024 12:45 AM EST Therapeutic range listed is for Unfractionated Heparin. LMW Heparin therapeutic range: 0.50-1.20 IU/mL us Kwesi Guido MD LAB BLOOD ORDERABLES F inal Result Performing Organization Address [facility] Co de Phone Number [facility] [address] [place] [address], [place] [phone] * (ABNORMAL) POCT Glucose, blood (07/16/2024 8:30 PM EST) [facility] Glucose POCT 263(H) 70 - 100 mg/dL 07/16/2024 8:31 PM EST [facility] Blood Capillary blood specimen / Unknown 07/16/2024 8:30 PM EST 07/16/2024 8:33 PM EST us Kwesi Guido MD LAB POINT OF C ARE TEST DOCKED DEVICE UNSOLICITED RESULTS Final Result [facility] [address] [place] [address], [place] [phone] * (ABNORMAL) Anti-Xa - STAT (07/16/2024 5:50 PM EST) [facility] Heparin Anti-Xa <0.04(L) 0.30 - 0.70 I Unit/mL LAB COAGULATION METHOD 07/16/2024 6:18 PM EST [facility] Blood Venous blood specimen / Unknown Venipuncture / Unknown 07/16/2024 5:50 PM EST 07/16/2024 6:01 PM EST Narrative [facility] - 07/16/2024 6:18 PM EST Therapeutic range listed is for Unfractionated Heparin. LMW Heparin therapeutic range: 0.50-1.20 IU/mL us Kwesi Guido MD LAB BLOOD ORDERABLES F inal Result [facility] [address] [place] [address], [place] [phone] * Activated Partial Thromboplastin Time - STAT (07/16/2024 5:50 PM EST) [facility] aPTT 31.3 24.1 - 39.3 sec LAB COAGULATION METHOD 07/16/2024 6:13 PM EST [facility] Blood Venous blood specimen / Unknown Venipuncture / Unknown 07/16/2024 5:50 PM EST 07/16/2024 6:01 PM EST us Kwesi Guido MD LAB BLOOD ORDERABLES F inal Result [facility] [address] [place] [address], [place] [phone] * (ABNORMAL) POCT Glucose, blood (07/16/2024 4:28 PM EST) Glucose POCT 170(H) 70 - 100 mg/dL 07/16/2024 4:31 PM EST [facility] Blood Capillary blood specimen / Unknown 07/16/2024 4:28 PM EST 07/16/2024 4:32 PM EST us Kwesi Guido MD LAB POINT OF C ARE TEST DOCKED DEVICE UNSOLICITED RESULTS Final Result [facility] ([facility] [address] [place] [address], [place] [phone] * Vascular US duplex lower extremity venous [...] Signed Date: 07/16/2024 12:33 ET Workstation ID: [id number] Transcribed By: Self Edit Transcribed Date: 07/16/2024 [...] Signed Date: 07/16/2024 12:33 ET Workstation ID: [id number] Transcribed By: Self Edit Transcribed Date: 07/16/2024 12:28 ET us Kwesi Guido MD CV VASCULAR PROCEDURES Final Result * (ABNORMAL) POCT Glucose, blood (07/16/2024 10:42 AM EST) Pathologist [facility] Glucose POCT 105(H) 70 - 100 mg/dL 07/16/2024 10:44 AM EST [facility] Blood Capillary blood specimen / Unknown 07/16/2024 10:42 AM EST 07/16/2024 10:45 AM EST us Kwesi Guido MD LAB POINT OF C ARE TEST DOCKED DEVICE UNSOLICITED RESULTS Final Result [facility] [address] [place] [address], [place] [phone] * (ABNORMAL) Basic metabolic panel (07/16/2024 6:45 AM EST) Pathologist [facility] Sodium 135 133 - 145 mmol/L LAB CHEMISTRY METHOD 07/16/2024 8:40 AM EST [facility] Potassium 3.8 3.5 - 5.5 mmol/L LAB CHEMISTRY METHOD 07/16/2024 8:40 AM [facility] Chloride 103 96 - 110 mmol/L LAB CHEMISTRY METHOD 07/16/2024 8:40 AM [facility] CO2 18(L) 21 - 32 mmol/L LAB CHEMISTRY METHOD 07/16/2024 8:40 AM [facility] Anion Gap 14(H) 3 - 11 LAB CHEMISTRY METHOD 07/16/2024 8:40 AM [facility] Glucose 100 70 - 100 mg/dL LAB CHEMISTRY METHOD 07/16/2024 8:40 AM [facility] BUN 77(H) 5 - 25 mg/dL LAB CHEMISTRY METHOD 07/16/2024 8:40 AM [facility] Creatinine 5.37(H) 0.50 - 1.10 mg/dL LAB CHEMISTRY METHOD 07/16/2024 8:40 AM [facility] eGFR 8(L) >=60 mL/min/1. 73m2 LAB CHEMISTRY METHOD 07/16/2024 8:40 AM [facility] Comment:Calculation based on the??Chronic Kidney Disease Epidemiology Collaboration (CKD-EPI) equation refit??without adjustment for race. BUN/Creatinine Ratio 14.3 LAB CHEMISTRY METHOD 07/16/2024 8:40 AM [facility] Calcium 8.0(L) 8.5 - 10.5 mg/dL LAB CHEMISTRY METHOD 07/16/2024 8:40 AM [facility] Blood Venous blood specimen / Unknown Venipuncture / Unknown 07/16/2024 6:45 AM EST 07/16/2024 6:58 AM EST us Kwesi Guido MD LAB BLOOD ORDERABLES F inal Result [facility] [address] [place] [address], * (ABNORMAL) Complete blood count (07/16/2024 6:45 AM EST) [facility] WBC 27.6(H) 4.8 - 10.8 K/mcL LAB HEMETOLOGY METHOD 07/16/2024 7:16 AM [facility] RBC 3.40(L) 3.80 - 4.80 M/mcL LAB HEMETOLOGY METHOD 07/16/2024 7:16 AM [facility] Hemoglobin 8.4(L) 11.5 - 16.0 g/dL LAB HEMETOLOGY METHOD 07/16/2024 7:16 AM [facility] Hematocrit 25.9(L) 35.0 - 47.0 % LAB HEMETOLOGY METHOD 07/16/2024 7:16 AM [facility] MCV 76.2(L) 79.0 - 98.0 FL LAB HEMETOLOGY METHOD 07/16/2024 7:16 AM [facility] MCH 24.7(L) 27.0 - 32.0 pcg LAB HEMETOLOGY METHOD 07/16/2024 7:16 AM [facility] MCHC 32.4 32.0 - 37.0 g/dL LAB HEMETOLOGY METHOD 07/16/2024 7:16 AM [facility] RDW 23.1(H) 11.0 - 15.0 % LAB HEMETOLOGY METHOD 07/16/2024 7:16 AM [facility] Platelets 258 130 - 400 K/mcL LAB HEMETOLOGY METHOD 07/16/2024 7:16 AM [facility] MPV 9.9 7.0 - 11.0 FL LAB HEMETOLOGY METHOD 07/16/2024 7:16 AM [facility] NRBC 0.0 <1.0 % LAB HEMETOLOGY METHOD 07/16/2024 7:16 AM [facility] NRBC Absolute 0.00 <0.10 K/[facility] LAB HEMETOLOGY METHOD 07/16/2024 7:16 AM EST [facility] Blood Venous blood specimen / Unknown Venipuncture / Unknown 07/16/2024 6:45 AM EST 07/16/2024 6:58 AM EST us Kwesi Guido MD LAB BLOOD ORDERABLES F inal Result [facility] [address] [place] [address], [place] [phone] * POCT Glucose, blood (07/15/2024 8:26 PM EST) Glucose POCT 93 70 - 100 mg/dL 07/15/2024 8:26 PM EST [facility] Blood Capillary blood specimen / Unknown 07/15/2024 8:26 PM EST 07/15/2024 8:27 PM EST us Kwesi Guido MD LAB POINT OF C ARE TEST DOCKED DEVICE UNSOLICITED RESULTS Final Result Performing Organization Address City/[facility]/ZIP Co de Phone Number [facility] [address] [place] [address], [place] [phone] * POCT Glucose, blood (07/15/2024 4:30 PM EST) Glucose POCT 92 70 - 100 mg/dL 07/15/2024 4:31 PM EST [facility] Blood Capillary blood specimen / Unknown 07/15/2024 4:30 PM EST 07/15/2024 4:33 PM EST us Kwesi Guido MD LAB POINT OF C ARE TEST DOCKED DEVICE UNSOLICITED RESULTS Final Result [facility] [address] [place] [address], * IR Insert Tunneled CVC wo Port or Pump More 5yrs Left (07/15/2024 3:36 PM EST) Anatomical Region Laterality Modality Left Interventional R adiology 07/15/2024 3:45 PM EST Impressions 07/15/2024 3:47 PM EST Successful placement of a 14 [place] 23 cm dual-lumen cuffed tunneled dialysis catheter with the tip at the cavoatrial junction. This line may be used immediately. -------- FINAL REPORT -------- Dictated By: Fela Palomo Dictated Date: 07/15/2024 15:45 ET Assigned Physician: Fela Palomo Reviewed and Electronically Signed By: Fela Palomo Signed Date: 07/15/2024 15:47 ET Workstation ID: [id number] Transcribed By: Self Edit Transcribed Date: 07/15/2024 [...] The needle was exchanged for the 4 [place]ibian transition sheath. A 0.035 wire was then advanced through ??the sheath and into the inferior vena cava under fluoroscopy. The sheath was then exchanged for a 7 [place]ian vascular dilator. Attention was then turned to the right upper chest and the appropriate area was anesthetized with 2% lidocaine. A small dermatotomy was performed and then a tunnel was created from the dermatotomy to the initial venous access site. The catheter was advanced through the tunnel. ??The initial venous access site was then serially dilated up to a 15 [place]ibian peel-away sheath. The catheter was then advanced [...] The needle was exchanged for the 4 [place] transition sheath. A 0.035wire was then advanced through the sheath and into the inferior vena cavaunder fluoroscopy. The sheath was then exchanged for a 7 [place]ian vasculardilator. Attention was then turned to the right upper chest and the appropriatearea was anesthetized with 2% lidocaine. A small dermatotomy was performedand then a tunnel was created from the dermatotomy to the initial venousaccess site. The catheter was advanced through the tunnel. The initialvenous access site was then serially dilated up to a 15 [place]ian peel-awaysheath. The catheter was then advanced through [...] mGy IMPRESSION: Successful placement of a 14 [place] 23 cm dual-lumen cuffed tunneleddialysis catheter with the tip at the cavoatrial junction. This line maybe used immediately. -------- FINAL REPORT -------- Dictated By: Fela Palomo Dictated Date: 07/15/2024 15:45 ET Assigned Physician: Fela Palomo Reviewed and Electronically Signed By: Fela Palomo Signed Date: 07/15/2024 15:47 ET Workstation ID: [id number] Transcribed By: Self Edit Transcribed Date: 07/15/2024 15:45 ET Chencho Wayne MD IMG IR PROCEDURES Final Result * POCT Glucose, blood (07/15/2024 10:57 AM EST) Glucose POCT 98 70 - 100 mg/dL 07/15/2024 10:58 AM EST [facility] Blood Capillary blood specimen / Unknown 07/15/2024 10:57 AM EST 07/15/2024 10:59 AM EST Kwesi Guido MD LAB POINT OF C ARE TEST DOCKED DEVICE UNSOLICITED RESULTS Final Result [facility]) [facility] [address] [place] [address], [place] [phone] * (ABNORMAL) Basic metabolic panel (07/15/2024 8:56 AM EST) Sodium 132(L) 133 - 145 mmol/L LAB CHEMISTRY METHOD 07/15/2024 10:15 AM [facility] Potassium 3.8 3.5 - 5.5 mmol/L LAB CHEMISTRY METHOD 07/15/2024 10:15 AM [facility] Chloride 104 96 - 110 mmol/L LAB CHEMISTRY METHOD 07/15/2024 10:15 AM [facility] CO2 16(L) 21 - 32 mmol/L LAB CHEMISTRY METHOD 07/15/2024 10:15 AM [facility] Anion Gap 12(H) 3 - 11 LAB CHEMISTRY METHOD 07/15/2024 10:15 AM [facility] Glucose 80 70 - 100 mg/dL LAB CHEMISTRY METHOD 07/15/2024 10:15 AM [facility] BUN 97(H) 5 - 25 mg/dL LAB CHEMISTRY METHOD 07/15/2024 10:15 AM [facility] Creatinine 6.70(H) 0.50 - 1.10 mg/dL LAB CHEMISTRY METHOD 07/15/2024 10:15 AM [facility] eGFR 6(L) >=60 mL/min/1. 73m2 LAB CHEMISTRY METHOD 07/15/2024 10:15 AM [facility] Comment:Calculation based on the??Chronic Kidney Disease Epidemiology Collaboration (CKD-EPI) equation refit??without adjustment for race. BUN/Creatinine Ratio 14.5 LAB CHEMISTRY METHOD 07/15/2024 10:15 AM [facility] Calcium 8.4(L) 8.5 - 10.5 mg/dL LAB CHEMISTRY METHOD 07/15/2024 10:15 AM [facility] Blood Venous blood specimen / Unknown Venipuncture / Unknown 07/15/2024 8:56 AM EST 07/15/2024 9:43 AM EST us Kwesi Guido MD LAB BLOOD ORDERABLES F inal Result [facility] [address] [place] [address], [place] [phone] * Hepatitis B surface antigen with reflex to confirmation (07/15/2024 8:56 AM EST) Pathologist [facility] Hepatitis B Surface Ag Negative Negative LAB CHEMISTRY METHOD 07/15/2024 10:36 AM EST [facility] Blood Venous blood specimen / Unknown Venipuncture / Unknown 07/15/2024 8:56 AM EST 07/15/2024 9:43 AM EST Narrative [facility] - 07/15/2024 10:36 AM EST Over the counter supplements containing high doses of biotin may interfere with this assay. ??If interference is suspected, patients shoud be retested after refraining from biotin supplements for 72 hours. us Kwesi Guido MD LAB BLOOD ORDERABLES F inal Result [facility] [address] [place] [address], [place] [phone] * Hepatitis B surface antibody quantitative (07/15/2024 8:56 AM EST) [facility] Hepatitis B Surface Ab Negative Negative LAB CHEMISTRY METHOD 07/15/2024 10:25 AM EST [facility] Hepatitis B Surface Ab Quantitative <3.1 mIU/mL LAB CHEMISTRY METHOD 07/15/2024 10:25 AM EST [facility] Blood Venous blood specimen / Unknown Venipuncture / Unknown 07/15/2024 8:56 AM EST 07/15/2024 9:43 AM EST Narrative [facility] - 07/15/2024 10:25 AM EST >=10 mIU/mL is considered to be consistent with immunity. us Kwesi Guido MD LAB BLOOD ORDERABLES F inal Result [facility] [address] [place] [address], * (ABNORMAL) Renal function panel (07/15/2024 8:56 AM EST) Sodium 132(L) 133 - 145 mmol/L LAB CHEMISTRY METHOD 07/15/2024 10:26 AM [facility] Potassium 3.8 3.5 - 5.5 mmol/L LAB CHEMISTRY METHOD 07/15/2024 10:26 AM [facility] Chloride 104 96 - 110 mmol/L LAB CHEMISTRY METHOD 07/15/2024 10:26 AM [facility] CO2 16(L) 21 - 32 mmol/L LAB CHEMISTRY METHOD 07/15/2024 10:26 AM [facility] Anion Gap 12(H) 3 - 11 LAB CHEMISTRY METHOD 07/15/2024 10:26 AM [facility] Glucose 80 70 - 100 mg/dL LAB CHEMISTRY METHOD 07/15/2024 10:26 AM [facility] BUN 97(H) 5 - 25 mg/dL LAB CHEMISTRY METHOD 07/15/2024 10:26 AM [facility] Creatinine 6.70(H) 0.50 - 1.10 mg/dL LAB CHEMISTRY METHOD 07/15/2024 10:26 AM [facility] eGFR 6(L) >=60 mL/min/1. 73m2 LAB CHEMISTRY METHOD 07/15/2024 10:26 AM [facility] Comment:Calculation based on the??Chronic Kidney Disease Epidemiology Collaboration (CKD-EPI) equation refit??without adjustment for race. BUN/Creatinine Ratio 14.5 LAB CHEMISTRY METHOD 07/15/2024 10:26 AM [facility] Albumin 3.3 3.2 - 5.0 g/dL LAB CHEMISTRY METHOD 07/15/2024 10:26 AM [facility] Comment:Results verified by repeat testing Calcium 8.4(L) 8.5 - 10.5 mg/dL LAB CHEMISTRY METHOD 07/15/2024 10:26 AM [facility] Phosphorus 4.2 2.5 - 4.5 mg/dL LAB CHEMISTRY METHOD 07/15/2024 10:26 AM [facility] Blood Venous blood specimen / Unknown Venipuncture / Unknown 07/15/2024 8:56 AM EST 07/15/2024 9:43 AM EST Chencho Wayne MD LAB BLOOD ORDERABLES Final Resu lt [facility] [address] [place] [address], [place] [phone] * POCT Glucose, blood (07/15/2024 8:03 AM EST) Glucose POCT 96 70 - 100 mg/dL 07/15/2024 8:05 AM [facility] Blood Capillary blood specimen / Unknown 07/15/2024 8:03 AM EST 07/15/2024 8:06 AM EST Kwesi Guido MD LAB POINT OF C ARE TEST DOCKED DEVICE UNSOLICITED RESULTS Final Result [facility] [address] [place] [address], [place] [phone] * (ABNORMAL) RBC morphology review (07/15/2024 6:56 [...] (none) LAB HEMETOLOGY METHOD 07/15/2024 8:54 AM [facility] Schistocytes Present < 5%(A) (none) LAB HEMETOLOGY METHOD 07/15/2024 8:54 AM [facility] Blood Venous blood specimen / Unknown Venipuncture / Unknown 07/15/2024 6:56 AM EST 07/15/2024 7:52 AM EST Kwesi Guido MD LAB BLOOD ORDERABLES F inal Result [facility] [address] [place] [address], * (ABNORMAL) CBC auto differential (07/15/2024 6:56 AM EST) WBC 23.7(H) 4.8 - 10.8 K/mcL LAB HEMETOLOGY METHOD 07/15/2024 8:54 AM [facility] RBC 3.10(L) 3.80 - 4.80 M/mcL LAB HEMETOLOGY METHOD 07/15/2024 8:54 AM [facility] Hemoglobin 7.5(L) 11.5 - 16.0 g/dL LAB HEMETOLOGY METHOD 07/15/2024 8:54 AM [facility] Hematocrit 23.6(L) 35.0 - 47.0 % LAB HEMETOLOGY METHOD 07/15/2024 8:54 AM [facility] MCV 75.9(L) 79.0 - 98.0 FL LAB HEMETOLOGY METHOD 07/15/2024 8:54 AM [facility] MCH 24.1(L) 27.0 - 32.0 pcg LAB HEMETOLOGY METHOD 07/15/2024 8:54 AM [facility] MCHC 31.8(L) 32.0 - 37.0 g/dL LAB HEMETOLOGY METHOD 07/15/2024 8:54 AM [facility] RDW 22.7(H) 11.0 - 15.0 % LAB HEMETOLOGY METHOD 07/15/2024 8:54 AM [facility] Platelets 246 130 - 400 K/mcL LAB HEMETOLOGY METHOD 07/15/2024 8:54 AM [facility] MPV 10.3 7.0 - 11.0 FL LAB HEMETOLOGY METHOD 07/15/2024 8:54 AM [facility] NRBC 0.0 <1.0 % LAB HEMETOLOGY METHOD 07/15/2024 8:54 AM [facility] NRBC Absolute 0.00 <0.10 K/mcL LAB HEMETOLOGY METHOD 07/15/2024 8:54 AM [facility] Neutrophils Relative 87.4 % LAB HEMETOLOGY METHOD 07/15/2024 8:54 AM [facility] Comment:This is an appended report. These results have been appended to a previously preliminary verified report. Lymphocytes Relative 3.5 % LAB HEMETOLOGY METHOD 07/15/2024 8:54 AM [facility] Comment:This is an appended report. These results have been appended to a previously preliminary verified report. Monocytes Relative 4.8 % LAB HEMETOLOGY METHOD 07/15/2024 8:54 AM [facility] Comment:This is an appended report. These results have been appended to a previously preliminary verified report. Eosinophils Relative 1.7 % LAB HEMETOLOGY METHOD 07/15/2024 8:54 AM [facility] Comment:This is an appended report. These results have been appended to a previously preliminary verified report. Basophils Relative 0.2 % LAB HEMETOLOGY METHOD 07/15/2024 8:54 AM [facility] Comment:This is an appended report. These results have been appended to a previously preliminary verified report. Immature Granulocytes Relative 2.4 % LAB HEMETOLOGY METHOD 07/15/2024 8:54 AM [facility] Comment:This is an appended report. These results have been appended to a previously preliminary verified report. Neutrophils Absolute 20.75(H) 1.50 - 7.00 K/mcL [facility] 07/15/2024 8:54 AM [facility] Comment:This is an appended report. These results have been appended to a previously preliminary verified report. Lymphocytes Absolute 0.84(L) 1.00 - 5.00 K/mcL LAB HEMETOLOGY METHOD 07/15/2024 8:54 AM [facility] Comment:This is an appended report. These results have been appended to a previously preliminary verified report. Monocytes Absolute 1.13(H) 0.20 - 1.00 K/mcL LAB HEMETOLOGY METHOD 07/15/2024 8:54 AM [facility] Comment:This is an appended report. These results have been appended to a previously preliminary verified report. Eosinophils Absolute 0.41 0.00 - 0.50 K/mcL LAB HEMETOLOGY METHOD 07/15/2024 8:54 AM [facility] Comment:This is an appended report. These results have been appended to a previously preliminary verified report. Basophils Absolute 0.05 0.00 - 0.20 K/mcL LAB HEMETOLOGY METHOD 07/15/2024 8:54 AM [facility] Comment:This is an appended report. These results have been appended to a previously preliminary verified report. Immature Granulocytes Absolute 0.56(H) 0.00 - 0.03 K/mcL LAB HEMETOLOGY METHOD 07/15/2024 8:54 AM EST [facility] Comment:This is an appended report. These results have been appended to a previously preliminary verified report. Blood Venous blood specimen / Unknown Venipuncture / Unknown 07/15/2024 6:56 AM EST 07/15/2024 7:52 AM EST us Kwesi Guido MD LAB BLOOD ORDERABLES F inal Result Performing Organization Address City/[facility]/ZIP Co de Phone Number [facility] [address] [place] [address], [place] [phone] * (ABNORMAL) Prothrombin time with INR (07/15/2024 6:56 AM EST) Protime 16.4(H) 10.6 - 13.9 sec LAB COAGULATION METHOD 07/15/2024 8:16 AM EST [facility] INR 1.3 LAB COAGULATION METHOD 07/15/2024 8:16 AM EST [facility] Blood Venous blood specimen / Unknown Venipuncture / Unknown 07/15/2024 6:56 AM EST 07/15/2024 7:52 AM EST us Kwesi Guido MD LAB BLOOD ORDERABLES F inal Result [facility] [address] [place] [address], [place] [phone] * Magnesium (07/15/2024 6:56 AM EST) Magnesium 2.2 1.9 - 2.6 mg/dL LAB CHEMISTRY METHOD 07/15/2024 8:48 AM EST [facility] Blood Venous blood specimen / Unknown Venipuncture / Unknown 07/15/2024 6:56 AM EST 07/15/2024 7:52 AM EST Kwesi Guido MD LAB BLOOD ORDERABLES F inal Result [facility] [address] [place] [address], [place] [phone] * (ABNORMAL) Basic metabolic panel (07/15/2024 6:56 AM EST) Pathologist [facility] Sodium 134 133 - 145 mmol/L LAB CHEMISTRY METHOD 07/15/2024 8:58 AM [facility] Potassium 3.8 3.5 - 5.5 mmol/L LAB CHEMISTRY METHOD 07/15/2024 8:58 AM [facility] Chloride 104 96 - 110 mmol/L LAB CHEMISTRY METHOD 07/15/2024 8:58 AM [facility] CO2 15(L) 21 - 32 mmol/L LAB CHEMISTRY METHOD 07/15/2024 8:58 AM [facility] Anion Gap 15(H) 3 - 11 LAB CHEMISTRY METHOD 07/15/2024 8:58 AM [facility] Glucose 82 70 - 100 mg/dL LAB CHEMISTRY METHOD 07/15/2024 8:58 AM [facility] BUN 95(H) 5 - 25 mg/dL LAB CHEMISTRY METHOD 07/15/2024 8:58 AM [facility] Creatinine 6.68(H) 0.50 - 1.10 mg/dL LAB CHEMISTRY METHOD 07/15/2024 8:58 AM [facility] eGFR 6(L) >=60 mL/min/1. 73m2 LAB CHEMISTRY METHOD 07/15/2024 8:58 AM [facility] Comment:Calculation based on the??Chronic Kidney Disease Epidemiology Collaboration (CKD-EPI) equation refit??without adjustment for race. BUN/Creatinine Ratio 14.2 LAB CHEMISTRY METHOD 07/15/2024 8:58 AM EST [facility] Calcium 8.3(L) 8.5 - 10.5 mg/dL LAB CHEMISTRY METHOD 07/15/2024 8:58 AM EST [facility] Blood Venous blood specimen / Unknown Venipuncture / Unknown 07/15/2024 6:56 AM EST 07/15/2024 7:52 AM EST us Kwesi Guido MD LAB BLOOD ORDERABLES F inal Result [facility] [address] [place] [address], [place] [phone] * (ABNORMAL) POCT Glucose, blood (07/14/2024 8:07 PM EST) Glucose POCT 122(H) 70 - 100 mg/dL 07/14/2024 8:07 PM EST [facility] Blood Capillary blood specimen / Unknown 07/14/2024 8:07 PM EST 07/14/2024 8:09 PM EST us Kwesi Guido MD LAB POINT OF C ARE TEST DOCKED DEVICE UNSOLICITED RESULTS Final Result [facility] [address] [place] [address], [place] [phone] * (ABNORMAL) POCT Glucose, blood (07/14/2024 4:26 PM EST) Glucose POCT 152(H) 70 - 100 mg/dL 07/14/2024 4:27 PM EST [facility] Blood Capillary blood specimen / Unknown 07/14/2024 4:26 PM EST 07/14/2024 4:28 PM EST us Kwesi Guido MD LAB POINT OF ARE TEST DOCKED DEVICE UNSOLICITED RESULTS Final Result [facility] [address] [place] [address], [place] [phone] * POCT Glucose, blood (07/14/2024 11:32 AM EST) Glucose POCT 100 70 - 100 mg/dL 07/14/2024 11:37 AM EST [facility] Blood Capillary blood specimen / Unknown 07/14/2024 11:32 AM EST 07/14/2024 11:38 AM EST us Kwesi Guido MD LAB POINT OF ARE TEST DOCKED DEVICE UNSOLICITED RESULTS Final Result Performing Organization Address [facility]/ZIP Co de Phone Number [facility] [address] [place] [address], [place] [phone] * POCT Glucose, blood (07/14/2024 8:19 AM EST) Glucose POCT 72 70 - 100 mg/dL 07/14/2024 8:38 AM EST [facility] Blood Capillary blood specimen / Unknown 07/14/2024 8:19 AM EST 07/14/2024 8:39 AM EST us Kwesi Guido MD LAB POINT OF ARE TEST DOCKED DEVICE UNSOLICITED RESULTS Final Result [facility] [address] [place] [address], [place] [phone] * Extractable Nuclear Antibodies Profile (07/14/2024 6:00 AM EST) SM Ab Negative Negative LAB CHEMISTRY METHOD 07/17/2024 12:29 PM EST [facility] SM Antibody Quant 2 <20 units LAB CHEMISTRY METHOD 07/17/2024 12:29 PM EST [facility] SHREDDER TENDER PEAT Ab Negative Negative LAB CHEMISTRY METHOD 07/17/2024 12:29 PM EST [facility] SH[employer]AT Antibody Quant 1 <20 units LAB CHEMISTRY METHOD 07/17/2024 12:29 PM EST [facility] Blood Venous blood specimen / Unknown 07/14/2024 6:00 AM EST 07/14/2024 6:35 AM EST us Kwesi Guido MD LAB BLOOD ORDERABLES F inal Result [facility] [address] [place] [address], [place] [phone] * C4 complement (07/14/2024 6:00 AM EST) C4 Complement 18 16 - 47 mg/dL LAB CHEMISTRY METHOD 07/14/2024 11:20 AM EST [facility] Blood Venous blood specimen / Unknown 07/14/2024 6:00 AM EST 07/14/2024 6:35 AM EST us Kwesi Guido MD LAB BLOOD ORDERABLES F inal Result [facility] [address] [place] [address], [place] [phone] * (ABNORMAL) C3 complement (07/14/2024 6:00 AM EST) C3 Complement 78(L) 88 - 201 mg/dL LAB CHEMISTRY METHOD 07/14/2024 11:20 AM EST [facility] Blood Venous blood specimen / Unknown 07/14/2024 6:00 AM EST 07/14/2024 6:35 AM EST us Kwesi Guido MD LAB BLOOD ORDERABLES F inal Result [facility] [address] [place] [address], [place] [phone] * (ABNORMAL) Anti-neutrophilic cytoplasmic antibody (07/14/2024 6:00 AM EST) Pathologist [facility] Myeloperoxidase Ab Negative Negative LAB CHEMISTRY METHOD 07/20/2024 12:10 PM EST [facility] Myeloperoxidase Ab, Quant 2 <=20 units LAB CHEMISTRY METHOD 07/20/2024 12:10 PM EST [facility] Proteinase-3 Ab Positive(A ) Negative LAB CHEMISTRY METHOD 07/20/2024 12:10 PM EST [facility] Proteinase-3 Ab Quant 162(H) <=20 units LAB CHEMISTRY METHOD 07/20/2024 12:10 PM EST [facility] Blood Venous blood specimen / Unknown 07/14/2024 6:00 AM EST 07/14/2024 6:35 AM EST us Kwesi Guido MD LAB BLOOD ORDERABLES F inal Result [facility] [address] [place] [address], [place] [phone] * (ABNORMAL) CBC auto differential (07/14/2024 6:00 AM EST) [facility] WBC 19.8(H) 4.8 - 10.8 K/[facility] LAB HEMETOLOGY METHOD 07/14/2024 6:56 AM EST [facility] RBC 2.90(L) 3.80 - 4.80 M/[facility] LAB HEMETOLOGY METHOD 07/14/2024 6:56 AM EST [facility] Hemoglobin 7.0(L) 11.5 - 16.0 g/dL LAB HEMETOLOGY METHOD 07/14/2024 6:56 AM [facility] Hematocrit 21.8(L) 35.0 - 47.0 % LAB HEMETOLOGY METHOD 07/14/2024 6:56 AM [facility] MCV 75.7(L) 79.0 - 98.0 FL LAB HEMETOLOGY METHOD 07/14/2024 6:56 AM [facility] MCH 24.3(L) 27.0 - 32.0 pcg LAB HEMETOLOGY METHOD 07/14/2024 6:56 AM [facility] MCHC 32.1 32.0 - 37.0 g/dL LAB HEMETOLOGY METHOD 07/14/2024 6:56 AM [facility] RDW 21.6(H) 11.0 - 15.0 % LAB HEMETOLOGY METHOD 07/14/2024 6:56 AM [facility] Platelets 193 130 - 400 K/mcL LAB HEMETOLOGY METHOD 07/14/2024 6:56 AM [facility] MPV 9.9 7.0 - 11.0 FL LAB HEMETOLOGY METHOD 07/14/2024 6:56 AM [facility] NRBC 0.0 <1.0 % LAB HEMETOLOGY METHOD 07/14/2024 6:56 AM [facility] NRBC Absolute 0.00 <0.10 K/mcL LAB HEMETOLOGY METHOD 07/14/2024 6:56 AM [facility] Neutrophils Relative 85.1 % LAB HEMETOLOGY METHOD 07/14/2024 6:56 AM [facility] Lymphocytes Relative 3.7 % LAB HEMETOLOGY METHOD 07/14/2024 6:56 AM [facility] Monocytes Relative 6.1 % LAB HEMETOLOGY METHOD 07/14/2024 6:56 AM [facility] Eosinophils Relative 2.5 % LAB HEMETOLOGY METHOD 07/14/2024 6:56 AM EST [facility] Basophils Relative 0.2 % LAB HEMETOLOGY METHOD 07/14/2024 6:56 AM EST [facility] Immature Granulocytes Relative 2.4 % LAB HEMETOLOGY METHOD 07/14/2024 6:56 AM EST [facility] Neutrophils Absolute 16.82(H) 1.50 - 7.00 K/mcL LAB HEMETOLOGY METHOD 07/14/2024 6:56 AM EST [facility] Lymphocytes Absolute 0.74(L) 1.00 - 5.00 K/mcL LAB HEMETOLOGY METHOD 07/14/2024 6:56 AM EST [facility] Monocytes Absolute 1.20(H) 0.20 - 1.00 K/mcL LAB HEMETOLOGY METHOD 07/14/2024 6:56 AM [facility] Eosinophils Absolute 0.50 0.00 - 0.50 K/mcL LAB HEMETOLOGY METHOD 07/14/2024 6:56 AM EST [facility] Basophils Absolute 0.04 0.00 - 0.20 K/mcL LAB HEMETOLOGY METHOD 07/14/2024 6:56 AM EST [facility] Immature Granulocytes Absolute 0.48(H) 0.00 - 0.03 K/mcL LAB HEMETOLOGY METHOD 07/14/2024 6:56 AM EST [facility] Blood Venous blood specimen / Unknown 07/14/2024 6:00 AM EST 07/14/2024 6:36 AM EST us Kwesi Guido MD LAB BLOOD ORDERABLES F inal Result [facility] [address] [place] [address], * Magnesium (07/14/2024 6:00 AM EST) Magnesium 2.0 1.9 - 2.6 mg/dL LAB CHEMISTRY METHOD 07/14/2024 7:23 AM [facility] Blood Venous blood specimen / Unknown 07/14/2024 6:00 AM EST 07/14/2024 6:35 AM EST us Kwesi Guido MD LAB BLOOD ORDERABLES F inal Result [facility] [address] [place] [address], * (ABNORMAL) Basic metabolic panel (07/14/2024 6:00 AM EST) [facility] Sodium 132(L) 133 - 145 mmol/L LAB CHEMISTRY METHOD 07/14/2024 7:38 AM [facility] Potassium 3.4(L) 3.5 - 5.5 mmol/L LAB CHEMISTRY METHOD 07/14/2024 7:38 AM [facility] Chloride 104 96 - 110 mmol/L LAB CHEMISTRY METHOD 07/14/2024 7:38 AM [facility] CO2 18(L) 21 - 32 mmol/L LAB CHEMISTRY METHOD 07/14/2024 7:38 AM [facility] Anion Gap 10 3 - 11 LAB CHEMISTRY METHOD 07/14/2024 7:38 AM [facility] Glucose 69(L) 70 - 100 mg/dL LAB CHEMISTRY METHOD 07/14/2024 7:38 AM [facility] BUN 84(H) 5 - 25 mg/dL LAB CHEMISTRY METHOD 07/14/2024 7:38 AM [facility] Creatinine 5.84(H) 0.50 - 1.10 mg/dL LAB CHEMISTRY METHOD 07/14/2024 7:38 AM [facility] eGFR 7(L) >=60 mL/min/1. 73m2 LAB CHEMISTRY METHOD 07/14/2024 7:38 AM EST [facility] Comment:Calculation based on the??Chronic Kidney Disease Epidemiology Collaboration (CKD-EPI) equation refit??without adjustment for race. BUN/Creatinine Ratio 14.4 LAB CHEMISTRY METHOD 07/14/2024 7:38 AM [facility] Calcium 8.2(L) 8.5 - 10.5 mg/dL LAB CHEMISTRY METHOD 07/14/2024 7:38 AM [facility] Blood Venous blood specimen / Unknown 07/14/2024 6:00 AM EST 07/14/2024 6:35 AM EST us Kwesi Guido MD LAB BLOOD ORDERABLES F inal Result Performing Organization Address [facility]/ZIP Co de Phone Number [facility] [address] [place] [address], [place] [phone] * (ABNORMAL) POCT Glucose, blood (07/13/2024 8:53 PM EST) [facility] Signature Glucose POCT 153(H) 70 - 100 mg/dL 07/13/2024 8:55 PM EST [facility] Blood Capillary blood specimen / Unknown 07/13/2024 8:53 PM EST 07/13/2024 8:56 PM EST us Kwesi Guido MD LAB POINT OF C ARE TEST DOCKED DEVICE UNSOLICITED RESULTS Final Result [facility] [address] [place] [address], [place] [phone] * Transfuse RBC (07/13/2024 7:03 PM EST) us Kwesi Guido MD BLOOD TRANSFUSION ORDIsidoro MARI Final Result * Transfuse RBC: 1 Units (07/13/2024 7:03 PM EST) us Kwesi Guido MD BLOOD TRANSFUSION ANNALISA MARI Final Result * (ABNORMAL) POCT Glucose, blood (07/13/2024 3:53 PM EST) [facility] Signature Glucose POCT 115(H) 70 - 100 mg/dL 07/13/2024 3:56 PM EST [facility] Blood Capillary blood specimen / Unknown 07/13/2024 3:53 PM EST 07/13/2024 3:57 PM EST us Kwesi Guido MD LAB POINT OF ARE TEST DOCKED DEVICE UNSOLICITED RESULTS Final Result Performing Organization Address City/[facility]/ZIP Co de Phone Number [facility] [address] [place] [address], [place] [phone] * (ABNORMAL) POCT Glucose, blood (07/13/2024 10:58 AM EST) [facility] Glucose POCT 106(H) 70 - 100 mg/dL 07/13/2024 10:58 AM EST [facility] Blood Capillary blood specimen / Unknown 07/13/2024 10:58 AM EST 07/13/2024 10:59 AM EST us Kwesi Guido MD LAB POINT OF C ARE TEST DOCKED DEVICE UNSOLICITED RESULTS Final Result [facility] [address] [place] [address], [place] [phone] * Prepare RBC: 1 Units (07/13/2024 10:44 AM EST) [facility] Product Code [id number] 07/13/2024 12:34 PM EST [facility] Unit Number [id number] 07/13/19 12:34 PM EST [facility] Crossmatch Compatible 07/13/2024 11:06 AM [facility] Dispense Status Transfused 07/13/2024 12:34 PM [facility] Unit ABO Rh OPOS 07/13/2024 12:34 PM [facility] Unit Expiration Date Time 07/13/2024 12:34 PM [facility] Unit Blood Type 5100 07/13/2024 12:34 PM [facility] Blood Venous blood specimen / Unknown 07/13/2024 10:44 AM EST 07/13/2024 8:32 AM EST us Kwesi Guido MD BLOOD BANK PRODUCT ORD ERABLES Final Result Performing Organization Address City/[facility]/ZIP Co de Phone Number [facility] [address] [place] [address], [place] [phone] * Type and screen (07/13/2024 8:24 AM EST) ABO Group O 07/13/2024 10:29 AM [facility] Rh Type Positive 07/13/2024 10:29 AM [facility] Antibody Screen Negative 07/13/2024 10:29 AM [facility] Blood Venous blood specimen / Unknown Venipuncture / Unknown 07/13/2024 8:24 AM EST 07/13/2024 8:32 AM EST us Kwesi Guido MD LAB BLOOD BANK TEST OR DERABLES Final Result [facility] [address] [place] [address], [place] [phone] * POCT Glucose, blood (07/13/2024 8:13 AM EST) Glucose POCT 87 70 - 100 mg/dL 07/13/2024 8:20 AM [facility] Blood Capillary blood specimen / Unknown 07/13/2024 8:13 AM EST 07/13/2024 8:21 AM EST us Kwesi Guido MD LAB POINT OF C ARE TEST DOCKED DEVICE UNSOLICITED RESULTS Final Result [facility] [address] [place] [address], * (ABNORMAL) CBC auto differential (07/13/2024 6:38 AM EST) [facility] WBC 20.6(H) 4.8 - 10.8 K/mcL LAB HEMETOLOGY METHOD 07/13/2024 7:14 AM [facility] RBC 2.70(L) 3.80 - 4.80 M/mcL LAB HEMETOLOGY METHOD 07/13/2024 7:14 AM [facility] Hemoglobin 6.5(L) 11.5 - 16.0 g/dL LAB HEMETOLOGY METHOD 07/13/2024 7:14 AM [facility] Hematocrit 20.3(L) 35.0 - 47.0 % LAB HEMETOLOGY METHOD 07/13/2024 7:14 AM [facility] MCV 74.4(L) 79.0 - 98.0 FL LAB HEMETOLOGY METHOD 07/13/2024 7:14 AM [facility] MCH 23.8(L) 27.0 - 32.0 pcg LAB HEMETOLOGY METHOD 07/13/2024 7:14 AM [facility] MCHC 32.0 32.0 - 37.0 g/dL LAB HEMETOLOGY METHOD 07/13/2024 7:14 AM [facility] RDW 21.4(H) 11.0 - 15.0 % LAB HEMETOLOGY METHOD 07/13/2024 7:14 AM [facility] Platelets 199 130 - 400 K/mcL LAB HEMETOLOGY METHOD 07/13/2024 7:14 AM [facility] MPV 9.9 7.0 - 11.0 FL LAB HEMETOLOGY METHOD 07/13/2024 7:14 AM [facility] NRBC 0.0 <1.0 % LAB HEMETOLOGY METHOD 07/13/2024 7:14 AM [facility] NRBC Absolute 0.00 <0.10 K/mcL LAB HEMETOLOGY METHOD 07/13/2024 7:14 AM [facility] Neutrophils Relative 84.4 % LAB HEMETOLOGY METHOD 07/13/2024 7:14 AM [facility] Lymphocytes Relative 3.9 % LAB HEMETOLOGY METHOD 07/13/2024 7:14 AM [facility] Monocytes Relative 6.3 % LAB HEMETOLOGY METHOD 07/13/2024 7:14 AM [facility] Eosinophils Relative 3.3 % LAB HEMETOLOGY METHOD 07/13/2024 7:14 AM [facility] Basophils Relative 0.1 % LAB HEMETOLOGY METHOD 07/13/2024 7:14 AM [facility] Immature Granulocytes Relative 2.0 % LAB HEMETOLOGY METHOD 07/13/2024 7:14 AM [facility] Neutrophils Absolute 17.36(H) 1.50 - 7.00 K/mcL LAB HEMETOLOGY METHOD 07/13/2024 7:14 AM [facility] Lymphocytes Absolute 0.81(L) 1.00 - 5.00 K/mcL LAB HEMETOLOGY METHOD 07/13/2024 7:14 AM [facility] Monocytes Absolute 1.30(H) 0.20 - 1.00 K/mcL LAB HEMETOLOGY METHOD 07/13/2024 7:14 AM EST [facility] Eosinophils Absolute 0.67(H) 0.00 - 0.50 K/[facility] LAB HEMETOLOGY METHOD 07/13/2024 7:14 AM EST [facility] Basophils Absolute 0.03 0.00 - 0.20 K/[facility] LAB HEMETOLOGY METHOD 07/13/2024 7:14 AM EST [facility] Immature Granulocytes Absolute 0.41(H) 0.00 - 0.03 K/[facility] LAB HEMETOLOGY METHOD 07/13/2024 7:14 AM [facility] Blood Venous blood specimen / Unknown Venipuncture / Unknown 07/13/2024 6:38 AM EST 07/13/2024 6:51 AM EST us Kwesi Guido MD LAB BLOOD ORDERABLES F inal Result Performing Organization Address City/[facility]/ZIP Co de Phone Number [facility] [address] [place] [address], [place] [phone] * Phosphorus (07/13/2024 6:38 AM EST) Phosphorus 3.0 2.5 - 4.5 mg/dL LAB CHEMISTRY METHOD 07/13/2024 7:44 AM EST [facility] Blood Venous blood specimen / Unknown Venipuncture / Unknown 07/13/2024 6:38 AM EST 07/13/2024 6:50 AM EST us Kwesi Guido MD LAB BLOOD ORDERABLES F inal Result [facility] [address] [place] [address], [place] [phone] * Magnesium (07/13/2024 6:38 AM EST) [facility] Magnesium 1.9 1.9 - 2.6 mg/dL LAB CHEMISTRY METHOD 07/13/2024 7:44 AM [facility] Blood Venous blood specimen / Unknown Venipuncture / Unknown 07/13/2024 6:38 AM EST 07/13/2024 6:50 AM EST Kwesi Guido MD LAB BLOOD ORDERABLES F inal Result [facility] [address] [place] [address], * (ABNORMAL) Basic metabolic panel (07/13/2024 6:38 AM EST) [facility] Sodium 132(L) 133 - 145 mmol/L LAB CHEMISTRY METHOD 07/13/2024 7:57 AM [facility] Potassium 3.6 3.5 - 5.5 mmol/L LAB CHEMISTRY METHOD 07/13/2024 7:57 AM [facility] Chloride 104 96 - 110 mmol/L LAB CHEMISTRY METHOD 07/13/2024 7:57 AM [facility] CO2 18(L) 21 - 32 mmol/L LAB CHEMISTRY METHOD 07/13/2024 7:57 AM [facility] Anion Gap 10 3 - 11 LAB CHEMISTRY METHOD 07/13/2024 7:57 AM [facility] Glucose 71 70 - 100 mg/dL LAB CHEMISTRY METHOD 07/13/2024 7:57 AM [facility] BUN 73(H) 5 - 25 mg/dL LAB CHEMISTRY METHOD 07/13/2024 7:57 AM [facility] Creatinine 5.13(H) 0.50 - 1.10 mg/dL LAB CHEMISTRY METHOD 07/13/2024 7:57 AM [facility] eGFR 8(L) >=60 mL/min/1. 73m2 LAB CHEMISTRY METHOD 07/13/2024 7:57 AM EST [facility] Comment:Calculation based on the??Chronic Kidney Disease Epidemiology Collaboration (CKD-EPI) equation refit??without adjustment for race. BUN/Creatinine Ratio 14.2 LAB CHEMISTRY METHOD 07/13/2024 7:57 AM [facility] Calcium 8.1(L) 8.5 - 10.5 mg/dL LAB CHEMISTRY METHOD 07/13/2024 7:57 AM [facility] Blood Venous blood specimen / Unknown Venipuncture / Unknown 07/13/2024 6:38 AM EST 07/13/2024 6:50 AM EST Kwesi Guido MD LAB BLOOD ORDERABLES F inal Result Performing Organization Address City/[facility]/ZIP Co de Phone Number [facility] [address] [place] [address], * Uric acid (07/13/2024 6:38 AM EST) Uric Acid 7.5 3.1 - 7.8 mg/dL LAB CHEMISTRY METHOD 07/13/2024 7:44 AM EST [facility] Blood Venous blood specimen / Unknown Venipuncture / Unknown 07/13/2024 6:38 AM EST 07/13/2024 6:50 AM EST Chencho Wayne MD LAB BLOOD ORDERABLES Final Resu lt [facility] [address] [place] [address], * (ABNORMAL) Sedimentation rate (07/13/2024 6:38 AM EST) Sed Rate 84(H) 0 - 30 mm/hr LAB HEMETOLOGY METHOD 07/13/2024 7:32 AM EST [facility] Blood Venous blood specimen / Unknown Venipuncture / Unknown 07/13/2024 6:38 AM EST 07/13/2024 6:51 AM EST us Kwesi Guido MD LAB BLOOD ORDERABLES F inal Result Performing Organization Address [facility]/ZIP Co de Phone Number [facility] [address] [place] [address], [place] [phone] * (ABNORMAL) POCT Glucose, blood (07/12/2024 8:06 PM EST) Glucose POCT 125(H) 70 - 100 mg/dL 07/12/2024 8:08 PM EST [facility] Blood Capillary blood specimen / Unknown 07/12/2024 8:06 PM EST 07/12/2024 8:09 PM EST us Kwesi Guido MD LAB POINT OF C ARE TEST DOCKED DEVICE UNSOLICITED RESULTS Final Result Performing Organization Address [facility]/ZIP Co de Phone Number [facility] [address] [place] [address], [place] [phone] * (ABNORMAL) POCT Glucose, blood (07/12/2024 3:53 PM EST) Glucose POCT 143(H) 70 - 100 mg/dL 07/12/2024 3:57 PM EST [facility] Blood Capillary blood specimen / Unknown 07/12/2024 3:53 PM EST 07/12/2024 3:59 PM EST us Kwesi Guido MD LAB POINT OF C ARE TEST DOCKED DEVICE UNSOLICITED RESULTS Final Result Performing Organization Address City/[facility]/ZIP Co de Phone Number [facility] [address] [place] [address], [place] [phone] * (ABNORMAL) Protein and creatinine with ratio, urine (07/12/2024 3:27 PM EST) Protein, Urine 192 mg/dL LAB CHEMISTRY METHOD 07/12/2024 6:44 PM [facility] Prot/Creat, Ur 3.00(H) <=0.20 mg/mg creat LAB CHEMISTRY METHOD 07/12/2024 6:44 PM [facility] Creatinine, Urine 64.0 mg/dL LAB CHEMISTRY METHOD 07/12/2024 6:44 PM [facility] Urine Urine specimen obtained by clean catch procedure / Unknown Non-blood Collection / Unknown 07/12/2024 3:27 PM EST 07/12/2024 4:10 PM EST us Chencho Wayne MD LAB URINE ORDERABLES Final Resu lt Performing Organization Address City/[facility]/ZIP Co de Phone Number [facility] [address] [place] [address], [place] [phone] * Creatinine, urine, random (07/12/2024 3:27 PM EST) Creatinine, Urine 64.0 mg/dL LAB CHEMISTRY METHOD 07/12/2024 4:41 PM EST [facility] Urine Urine specimen from urethra / Unknown Non-blood Collection / Unknown 07/12/2024 3:27 PM EST 07/12/2024 4:11 PM EST us Chencho Wayne MD LAB URINE ORDERABLES Final Resu lt [facility] [address] [place] [address], [place] [phone] * Sodium, urine, random (07/12/2024 3:27 PM EST) Sodium, Ur 34 mmol/L LAB CHEMISTRY METHOD 07/12/2024 6:44 PM EST [facility] Urine Urine specimen obtained by clean catch procedure / Unknown Non-blood Collection / Unknown 07/12/2024 3:27 PM EST 07/12/2024 4:10 PM EST Aye HEDRICK LAB URINE ORDERABLES Final Re sult Performing Organization Address [facility] Co de Phone Number [facility] [address] [place] [address], [place] [phone] * Osmolality, urine (07/12/2024 3:27 PM EST) Osmolality, Urine 397 300 - 1,300 mOsm/kg LAB CHEMISTRY METHOD 07/12/2024 5:57 PM EST [facility] Urine Urine specimen obtained by clean catch procedure / Unknown Non-blood Collection / Unknown 07/12/2024 3:27 PM EST 07/12/2024 4:10 PM EST Aye HEDRICK LAB URINE ORDERABLES Final Re sult Performing Organization Address [facility] Phone Number [facility] [address] [place] [address], [place] [phone] * CT Chest wo Contrast (07/12/2024 12:48 PM EST) Anatomical Region Laterality Modality Body Computed Tomogra phy 07/12/2024 1:07 PM EST Impressions 07/12/2024 1:19 PM EST Impression: 1. No significant change in an irregular juxtapleural nodular opacity in the right lung apex. Malignancy is not excluded. 2. No developing lymphadenopathy. 3. Small bilateral pleural effusions, new. Starr HEDRICK ([id number]) -------- FINAL REPORT -------- Dictated By: Edilia Durbin Dictated Date: 07/12/2024 13:07 ET Assigned Physician: Edilia Durbin Reviewed and Electronically Signed By: Edilia Durbin Signed Date: 07/12/2024 13:19 ET Workstation ID: [id number] Transcribed By: Self Edit Transcribed Date: 07/12/2024 13:07 ET Narrative 07/12/2024 1:19 PM EST History: Abnormal chest radiograph. The patient underwent nondiagnostic CT- guided biopsy of the right apical lung nodule on 05/23/24. Comparison: Thoracic CT 06/17/24, 03/21/24 Technique: Helical volumetric imaging of the thorax was performed without IV contrast. DLP: 613.10 mGy/cm GE I-lightingpeed VCT Iterative reconstruction technique Findings: Respiratory motion [...] performed withoutIV contrast. DLP: 613.10 mGy/cm GE I-lightingpeed VCT Iterative reconstruction technique Findings: Respiratory motion [...] lymphadenopathy. 3. Small bilateral pleural effusions, new. [employer] RYLEY ([id number]) -------- FINAL REPORT -------- Dictated By: Edilia Durbin Dictated Date: 07/12/2024 13:07 ET Assigned Physician: Edilia Durbin Reviewed and Electronically Signed By: Edilia Durbin Signed Date: 07/12/2024 13:19 ET Workstation ID: [id number] Transcribed By: Self Edit Transcribed Date: 07/12/2024 13:07 ET us Kwesi Guido MD IMG CT PROCEDURES Aemrica l Result * (ABNORMAL) POCT Glucose, blood (07/12/2024 11:48 AM EST) Glucose POCT 176(H) 70 - 100 mg/dL 07/12/2024 11:49 AM EST [facility] Blood Capillary blood specimen / Unknown 07/12/2024 11:48 AM EST 07/12/2024 11:50 AM EST us Kwesi Guido MD LAB POINT OF ARE TEST DOCKED DEVICE UNSOLICITED RESULTS Final Result Performing Organization Address [facility]/ZIP Co de Phone Number [facility] [address] [place] [address], [place] [phone] * (ABNORMAL) POCT Glucose, blood (07/12/2024 8:07 AM EST) [facility] Glucose POCT 166(H) 70 - 100 mg/dL 07/12/2024 8:31 AM EST [facility] Blood Capillary blood specimen / Unknown 07/12/2024 8:07 AM EST 07/12/2024 8:32 AM EST us Kwesi Guido MD LAB POINT OF ARE TEST DOCKED DEVICE UNSOLICITED RESULTS Final Result Performing Organization Address [facility] Co de Phone Number [facility] [address] [place] [address], [place] [phone] * (ABNORMAL) Lipase (07/12/2024 6:19 AM EST) [facility] Lipase <10(L) 13 - 75 unit/L LAB CHEMISTRY METHOD 07/12/2024 3:26 PM EST [facility] Blood Venous blood specimen / Unknown Venipuncture / Unknown 07/12/2024 6:19 AM EST 07/12/2024 6:56 AM EST us Kwesi Guido MD LAB BLOOD ORDERABLES F inal Result Performing Organization Address [facility]/ZIP Co de Phone Number [facility] [address] [place] [address], [place] [phone] * (ABNORMAL) Hepatic function panel (07/12/2024 6:19 AM EST) [facility] Total Protein 4.9(L) 6.0 - 8.0 g/dL LAB CHEMISTRY METHOD 07/12/2024 3:26 PM [facility] Albumin 1.5(L) 3.2 - 5.0 g/dL LAB CHEMISTRY METHOD 07/12/2024 3:26 PM [facility] Total Bilirubin 0.5 0.0 - 1.4 mg/dL LAB CHEMISTRY METHOD 07/12/2024 3:26 PM [facility] Bilirubin, Direct 0.2 0.0 - 0.3 mg/dL LAB CHEMISTRY METHOD 07/12/2024 3:26 PM [facility] Bilirubin, Indirect 0.3 0.0 - 1.1 mg/dL LAB CHEMISTRY METHOD 07/12/2024 3:26 PM [facility] ALT (SGPT) 37 10 - 60 unit/L LAB CHEMISTRY METHOD 07/12/2024 3:26 PM [facility] AST (SGOT) 32 10 - 42 unit/L LAB CHEMISTRY METHOD 07/12/2024 3:26 PM [facility] Alkaline Phosphatase 157(H) 42 - 121 unit/L LAB CHEMISTRY METHOD 07/12/2024 3:26 PM [facility] Blood Venous blood specimen / Unknown Venipuncture / Unknown 07/12/2024 6:19 AM EST 07/12/2024 6:56 AM EST us Kwesi Guido MD LAB BLOOD ORDERABLES F inal Result [facility] [address] [place] [address], * (ABNORMAL) Procalcitonin (07/12/2024 6:19 AM EST) Procalcitonin 3.11(H) <=0.16 ng/mL LAB CHEMISTRY METHOD 07/12/2024 12:23 PM [facility] Blood Venous blood specimen [...] inal Result [facility] [address] [place] [address], * (ABNORMAL) C-reactive protein (07/12/2024 6:19 AM EST) C-Reactive Protein 16.60(H) <=0.50 mg/dL LAB CHEMISTRY METHOD 07/12/2024 10:35 AM EST [facility] Blood Venous blood specimen / Unknown Venipuncture / Unknown 07/12/2024 6:19 AM EST 07/12/2024 6:56 AM EST us Kwesi Guido MD LAB BLOOD ORDERABLES F inal Result [facility] [address] [place] [address], * (ABNORMAL) CBC auto differential (07/12/2024 6:19 AM EST) WBC 21.8(H) 4.8 - 10.8 K/mcL LAB HEMETOLOGY METHOD 07/12/2024 7:08 AM [facility] RBC 3.10(L) 3.80 - 4.80 M/mcL LAB HEMETOLOGY METHOD 07/12/2024 7:08 AM [facility] Hemoglobin 7.2(L) 11.5 - 16.0 g/dL LAB HEMETOLOGY METHOD 07/12/2024 7:08 AM [facility] Hematocrit 22.6(L) 35.0 - 47.0 % LAB HEMETOLOGY METHOD 07/12/2024 7:08 AM [facility] MCV 74.1(L) 79.0 - 98.0 FL LAB HEMETOLOGY METHOD 07/12/2024 7:08 AM [facility] MCH 23.6(L) 27.0 - 32.0 pcg LAB HEMETOLOGY METHOD 07/12/2024 7:08 AM [facility] MCHC 31.9(L) 32.0 - 37.0 g/dL LAB HEMETOLOGY METHOD 07/12/2024 7:08 AM [facility] RDW 21.0(H) 11.0 - 15.0 % LAB HEMETOLOGY METHOD 07/12/2024 7:08 AM [facility] Platelets 206 130 - 400 K/mcL LAB HEMETOLOGY METHOD 07/12/2024 7:08 AM [facility] MPV 9.6 7.0 - 11.0 FL LAB HEMETOLOGY METHOD 07/12/2024 7:08 AM [facility] NRBC 0.0 <1.0 % LAB HEMETOLOGY METHOD 07/12/2024 7:08 AM [facility] NRBC Absolute 0.00 <0.10 K/mcL LAB HEMETOLOGY METHOD 07/12/2024 7:08 AM [facility] Neutrophils Relative 86.5 % LAB HEMETOLOGY METHOD 07/12/2024 7:08 AM [facility] Lymphocytes Relative 2.7 % LAB HEMETOLOGY METHOD 07/12/2024 7:08 AM [facility] Monocytes Relative 5.8 % LAB HEMETOLOGY METHOD 07/12/2024 7:08 AM [facility] Eosinophils Relative 2.8 % LAB HEMETOLOGY METHOD 07/12/2024 7:08 AM [facility] Basophils Relative 0.2 % LAB HEMETOLOGY METHOD 07/12/2024 7:08 AM [facility] Immature Granulocytes Relative 2.0 % LAB HEMETOLOGY METHOD 07/12/2024 7:08 AM [facility] Neutrophils Absolute 18.89(H) 1.50 - 7.00 K/mcL LAB HEMETOLOGY METHOD 07/12/2024 7:08 AM [facility] Lymphocytes Absolute 0.59(L) 1.00 - 5.00 K/mcL LAB HEMETOLOGY METHOD 07/12/2024 7:08 AM [facility] Monocytes Absolute 1.27(H) 0.20 - 1.00 K/mcL LAB HEMETOLOGY METHOD 07/12/2024 7:08 AM [facility] Eosinophils Absolute 0.62(H) 0.00 - 0.50 K/mcL LAB HEMETOLOGY METHOD 07/12/2024 7:08 AM [facility] Basophils Absolute 0.04 0.00 - 0.20 K/mcL LAB HEMETOLOGY METHOD 07/12/2024 7:08 AM EST [facility] Immature Granulocytes Absolute 0.43(H) 0.00 - 0.03 K/mcL LAB HEMETOLOGY METHOD 07/12/2024 7:08 AM EST [facility] Blood Venous blood specimen / Unknown Venipuncture / Unknown 07/12/2024 6:19 AM EST 07/12/2024 6:58 AM EST us Kwesi Guido MD LAB BLOOD ORDERABLES F inal Result Performing Organization Address City/[facility]/ZIP Co de Phone Number [facility] [address] [place] [address], [place] [phone] * Phosphorus (07/12/2024 6:19 AM EST) Phosphorus 2.9 2.5 - 4.5 mg/dL LAB CHEMISTRY METHOD 07/12/2024 7:48 AM EST [facility] Blood Venous blood specimen / Unknown Venipuncture / Unknown 07/12/2024 6:19 AM EST 07/12/2024 6:56 AM EST us Kwesi Guido MD LAB BLOOD ORDERABLES F inal Result Performing Organization Address City/[facility]/ZIP Co de Phone Number [facility] [address] [place] [address], [place] [phone] * (ABNORMAL) Magnesium (07/12/2024 6:19 AM EST) Magnesium 1.8(L) 1.9 - 2.6 mg/dL LAB CHEMISTRY METHOD 07/12/2024 7:48 AM EST [facility] Blood Venous blood specimen / Unknown Venipuncture / Unknown 07/12/2024 6:19 AM EST 07/12/2024 6:56 AM EST us Kwesi Guido MD LAB BLOOD ORDERABLES F inal Result [facility] [address] [place] [address], * (ABNORMAL) Basic metabolic panel (07/12/2024 6:19 AM EST) Sodium 132(L) 133 - 145 mmol/L LAB CHEMISTRY METHOD 07/12/2024 7:49 AM EST [facility] Potassium 3.7 3.5 - 5.5 mmol/L LAB CHEMISTRY METHOD 07/12/2024 7:49 AM [facility] Chloride 102 96 - 110 mmol/L LAB CHEMISTRY METHOD 07/12/2024 7:49 AM [facility] CO2 18(L) 21 - 32 mmol/L LAB CHEMISTRY METHOD 07/12/2024 7:49 AM [facility] Anion Gap 12(H) 3 - 11 LAB CHEMISTRY METHOD 07/12/2024 7:49 AM [facility] Glucose 132(H) 70 - 100 mg/dL LAB CHEMISTRY METHOD 07/12/2024 7:49 AM [facility] BUN 70(H) 5 - 25 mg/dL LAB CHEMISTRY METHOD 07/12/2024 7:49 AM [facility] Creatinine 4.64(H) 0.50 - 1.10 mg/dL LAB CHEMISTRY METHOD 07/12/2024 7:49 AM [facility] eGFR 9(L) >=60 mL/min/1. 73m2 LAB CHEMISTRY METHOD 07/12/2024 7:49 AM [facility] Comment:Calculation based on the??Chronic Kidney Disease Epidemiology Collaboration (CKD-EPI) equation refit??without adjustment for race. BUN/Creatinine Ratio 15.1 LAB CHEMISTRY METHOD 07/12/2024 7:49 AM [facility] Calcium 8.1(L) 8.5 - 10.5 mg/dL LAB CHEMISTRY METHOD 07/12/2024 7:49 AM EST [facility] Blood Venous blood specimen / Unknown Venipuncture / Unknown 07/12/2024 6:19 AM EST 07/12/2024 6:56 AM EST us Kwesi Guido MD LAB BLOOD ORDERABLES F inal Result Performing Organization Address City/[facility]/ZIP Co de Phone Number [facility] [address] [place] [address], [place] [phone] * (ABNORMAL) POCT Glucose, blood (07/11/2024 8:03 PM EST) Glucose POCT 257(H) 70 - 100 mg/dL 07/11/2024 8:04 PM EST [facility] POCT Comment RN Notified 07/11/2024 8:04 PM EST [facility] Blood Capillary blood specimen / Unknown 07/11/2024 8:03 PM EST 07/11/2024 8:05 PM EST us Kwesi Guido MD LAB POINT OF C ARE TEST DOCKED DEVICE UNSOLICITED RESULTS Final Result Performing Organization Address [facility] Co de Phone Number [facility] [address] [place] [address], [place] [phone] * (ABNORMAL) POCT Glucose, blood (07/11/2024 3:51 PM EST) Glucose POCT 259(H) 70 - 100 mg/dL 07/11/2024 3:51 PM EST [facility] Blood Capillary blood specimen / Unknown 07/11/2024 3:51 PM EST 07/11/2024 3:52 PM EST us Kwesi Guido MD LAB POINT OF C ARE TEST DOCKED DEVICE UNSOLICITED RESULTS Final Result Performing Organization Address [facility]/ZIP Co de Phone Number [facility] [address] [place] [address], [place] [phone] * (ABNORMAL) POCT Glucose, blood (07/11/2024 11:10 AM EST) Glucose POCT 301(H) 70 - 100 mg/dL 07/11/2024 11:11 AM EST [facility] Blood Capillary blood specimen / Unknown 07/11/2024 11:10 AM EST 07/11/2024 11:13 AM EST us Kwesi Guido MD LAB POINT OF C ARE TEST DOCKED DEVICE UNSOLICITED RESULTS Final Result Performing Organization Address [facility] Co de Phone Number [facility] [address] [place] [address], [place] [phone] * (ABNORMAL) POCT Glucose, blood (07/11/2024 8:17 AM EST) Glucose POCT 191(H) 70 - 100 mg/dL 07/11/2024 8:17 AM EST [facility] Blood Capillary blood specimen / Unknown 07/11/2024 8:17 AM EST 07/11/2024 8:19 AM EST us Kwesi Guido MD LAB POINT OF C ARE TEST DOCKED DEVICE UNSOLICITED RESULTS Final Result Performing Organization Address [facility]/ZIP Co de Phone Number [facility] [address] [place] [address], [place] [phone] * Pathologist Review Immunofixation (07/11/2024 6:21 AM EST) Pathologist Interpretation Reviewed by Rosenda Galeana MD 07/13/2024 4:13 PM EST [facility] Blood Venous blood specimen / Unknown Venipuncture / Unknown 07/11/2024 6:21 AM EST 07/11/2024 6:43 AM EST us Chencho Wayne MD LAB BLOOD ORDERABLES Final Resu lt [facility] [address] [place] [address], [place] [phone] * (ABNORMAL) Hepatic function panel (07/11/2024 6:21 AM EST) Total Protein 5.1(L) 6.0 - 8.0 g/dL LAB CHEMISTRY METHOD 07/12/2024 3:26 PM [facility] Albumin 1.5(L) 3.2 - 5.0 g/dL LAB CHEMISTRY METHOD 07/12/2024 3:26 PM [facility] Total Bilirubin 0.6 0.0 - 1.4 mg/dL LAB CHEMISTRY METHOD 07/12/2024 3:26 PM [facility] Bilirubin, Direct 0.3 0.0 - 0.3 mg/dL LAB CHEMISTRY METHOD 07/12/2024 3:26 PM [facility] Bilirubin, Indirect 0.3 0.0 - 1.1 mg/dL LAB CHEMISTRY METHOD 07/12/2024 3:26 PM [facility] ALT (SGPT) 39 10 - 60 unit/L LAB CHEMISTRY METHOD 07/12/2024 3:26 PM [facility] AST (SGOT) 36 10 - 42 unit/L LAB CHEMISTRY METHOD 07/12/2024 3:26 PM [facility] Alkaline Phosphatase 168(H) 42 - 121 unit/L LAB CHEMISTRY METHOD 07/12/2024 3:26 PM [facility] Blood Venous blood specimen / Unknown Venipuncture / Unknown 07/11/2024 6:21 AM EST 07/11/2024 6:42 AM EST us Kwesi Guido MD LAB BLOOD ORDERABLES F inal Result Performing Organization Address City/[facility]/ZIP Co de Phone Number [facility] [address] [place] [address], [place] [phone] * Immunoglobulins IgG, IgA, IgM (07/11/2024 6:21 AM EST) [facility] Total IgG 1,090 549 - 1,584 [...] ORDERABLES Final Resu lt Performing Organization Address [facility]/ZIP Co de Phone Number [facility] [address] [place] [address], [place] [phone] * Immunofixation electrophoresis serum (07/11/2024 6:21 AM EST) Pathologist [facility] Immunofixation Result, Serum Faint restriction of IgG Edgard, not observed on SPEP . Follow-up in 6 months if clinically indicated. LAB CHEMISTRY METHOD 07/13/2024 4:13 PM EST [facility] Blood Venous blood specimen / Unknown Venipuncture / Unknown 07/11/2024 6:21 AM EST 07/11/2024 6:43 AM EST us Chencho Wayne MD LAB BLOOD ORDERABLES Final Resu lt [facility] [address] [place] [address], * (ABNORMAL) CBC auto differential (07/11/2024 6:21 AM EST) WBC 18.4(H) 4.8 - 10.8 K/mcL LAB HEMETOLOGY METHOD 07/11/2024 6:52 AM EST [facility] RBC 3.20(L) 3.80 - 4.80 M/mcL LAB HEMETOLOGY METHOD 07/11/2024 6:52 AM [facility] Hemoglobin 7.4(L) 11.5 - 16.0 g/dL LAB HEMETOLOGY METHOD 07/11/2024 6:52 AM [facility] Hematocrit 23.7(L) 35.0 - 47.0 % LAB HEMETOLOGY METHOD 07/11/2024 6:52 AM [facility] MCV 75.0(L) 79.0 - 98.0 FL LAB HEMETOLOGY METHOD 07/11/2024 6:52 AM [facility] MCH 23.4(L) 27.0 - 32.0 pcg LAB HEMETOLOGY METHOD 07/11/2024 6:52 AM [facility] MCHC 31.2(L) 32.0 - 37.0 g/dL LAB HEMETOLOGY METHOD 07/11/2024 6:52 AM [facility] RDW 20.2(H) 11.0 - 15.0 % LAB HEMETOLOGY METHOD 07/11/2024 6:52 AM [facility] Platelets 211 130 - 400 K/mcL LAB HEMETOLOGY METHOD 07/11/2024 6:52 AM [facility] MPV 9.1 7.0 - 11.0 FL LAB HEMETOLOGY METHOD 07/11/2024 6:52 AM [facility] NRBC 0.0 <1.0 % LAB HEMETOLOGY METHOD 07/11/2024 6:52 AM [facility] NRBC Absolute 0.00 <0.10 K/mcL LAB HEMETOLOGY METHOD 07/11/2024 6:52 AM [facility] Neutrophils Relative 86.2 % LAB HEMETOLOGY METHOD 07/11/2024 6:52 AM [facility] Lymphocytes Relative 3.0 % LAB HEMETOLOGY METHOD 07/11/2024 6:52 AM [facility] Monocytes Relative 5.9 % LAB HEMETOLOGY METHOD 07/11/2024 6:52 AM [facility] Eosinophils Relative 3.3 % LAB HEMETOLOGY METHOD 07/11/2024 6:52 AM [facility] Basophils Relative 0.2 % LAB HEMETOLOGY METHOD 07/11/2024 6:52 AM [facility] Immature Granulocytes Relative 1.4 % LAB HEMETOLOGY METHOD 07/11/2024 6:52 AM [facility] Neutrophils Absolute 15.84(H) 1.50 - 7.00 K/mcL LAB HEMETOLOGY METHOD 07/11/2024 6:52 AM [facility] Lymphocytes Absolute 0.56(L) 1.00 - 5.00 K/mcL LAB HEMETOLOGY METHOD 07/11/2024 6:52 AM [facility] Monocytes Absolute 1.09(H) 0.20 - 1.00 K/mcL LAB HEMETOLOGY METHOD 07/11/2024 6:52 AM [facility] Eosinophils Absolute 0.61(H) 0.00 - 0.50 K/mcL LAB HEMETOLOGY METHOD 07/11/2024 6:52 AM [facility] Basophils Absolute 0.04 0.00 - 0.20 K/mcL LAB HEMETOLOGY METHOD 07/11/2024 6:52 AM [facility] Immature Granulocytes Absolute 0.26(H) 0.00 - 0.03 K/mcL LAB HEMETOLOGY METHOD 07/11/2024 6:52 AM [facility] Blood Venous blood specimen / Unknown Venipuncture / Unknown 07/11/2024 6:21 AM EST 07/11/2024 6:41 AM EST us Maria Alejandra Melendez MD LAB BLOOD ORDERABLES Final Res ult [facility] [address] [place] [address], * (ABNORMAL) Basic metabolic panel (07/11/2024 6:21 AM EST) Sodium 130(L) 133 - 145 mmol/L LAB CHEMISTRY METHOD 07/11/2024 7:27 AM [facility] Potassium 3.7 3.5 - 5.5 mmol/L LAB CHEMISTRY METHOD 07/11/2024 7:27 AM [facility] Chloride 102 96 - 110 mmol/L LAB CHEMISTRY METHOD 07/11/2024 7:27 AM [facility] CO2 19(L) 21 - 32 mmol/L LAB CHEMISTRY METHOD 07/11/2024 7:27 AM [facility] Anion Gap 9 3 - 11 LAB CHEMISTRY METHOD 07/11/2024 7:27 AM [facility] Glucose 174(H) 70 - 100 mg/dL LAB CHEMISTRY METHOD 07/11/2024 7:27 AM [facility] BUN 69(H) 5 - 25 mg/dL LAB CHEMISTRY METHOD 07/11/2024 7:27 AM [facility] Creatinine 4.36(H) 0.50 - 1.10 mg/dL LAB CHEMISTRY METHOD 07/11/2024 7:27 AM [facility] eGFR 10(L) >=60 mL/min/1. 73m2 LAB CHEMISTRY METHOD 07/11/2024 7:27 AM EST [facility] Comment:Calculation based on the??Chronic Kidney Disease Epidemiology Collaboration (CKD-EPI) equation refit??without adjustment for race. BUN/Creatinine Ratio 15.8 LAB CHEMISTRY METHOD 07/11/2024 7:27 AM [facility] Calcium 8.2(L) 8.5 - 10.5 mg/dL LAB CHEMISTRY METHOD 07/11/2024 7:27 AM EST [facility] Blood Venous blood specimen / Unknown Venipuncture / Unknown 07/11/2024 6:21 AM EST 07/11/2024 6:42 AM EST us Maria Alejandra Melendez MD LAB BLOOD ORDERABLES Final Res ult Performing Organization Address City/[facility]/ZIP Co de Phone Number [facility] [address] [place] [address], [place] [phone] * (ABNORMAL) POCT Glucose, blood (07/10/2024 8:33 PM EST) Glucose POCT 325(H) 70 - 100 mg/dL 07/10/2024 8:34 PM EST [facility] Blood Capillary blood specimen / Unknown 07/10/2024 8:33 PM EST 07/10/2024 8:35 PM EST Maria Alejandra Melendez MD LAB POINT OF CARE TE ST DOCKED DEVICE UNSOLICITED RESULTS Final Result [facility] [address] [place] [address], [place] [phone] * (ABNORMAL) POCT Glucose, blood (07/10/2024 4:11 PM EST) Glucose POCT 287(H) 70 - 100 mg/dL 07/10/2024 4:12 PM EST [facility] Blood Capillary blood specimen / Unknown 07/10/2024 4:11 PM EST 07/10/2024 4:13 PM EST Maria Alejandra Melendez MD LAB POINT OF CARE TE ST DOCKED DEVICE UNSOLICITED RESULTS Final Result Performing Organization Address [facility]/ZIP Co de Phone Number [facility] [address] [place] [address], [place] [phone] * (ABNORMAL) POCT Glucose, blood (07/10/2024 11:29 AM EST) Glucose POCT 214(H) 70 - 100 mg/dL 07/10/2024 11:45 AM EST [facility] Blood Capillary blood specimen / Unknown 07/10/2024 11:29 AM EST 07/10/2024 11:47 AM EST us Maria Alejandra Melendez MD LAB POINT OF CARE TE ST DOCKED DEVICE UNSOLICITED RESULTS Final Result Performing Organization Address [facility]/ZIP Co de Phone Number [facility] [address] [place] [address], [place] [phone] * (ABNORMAL) POCT Glucose, blood (07/10/2024 8:40 AM EST) Glucose POCT 164(H) 70 - 100 mg/dL 07/10/2024 8:42 AM EST [facility] Blood Capillary blood specimen / Unknown 07/10/2024 8:40 AM EST 07/10/2024 8:43 AM EST us Maria Alejandra Melendez MD LAB POINT OF CARE TE ST DOCKED DEVICE UNSOLICITED RESULTS Final Result Performing Organization Address City/[facility]/ZIP Co de Phone Number [facility] [address] [place] [address], [place] [phone] * (ABNORMAL) Triiodothyronine free (07/10/2024 5:16 AM EST) T3, Free 154(L) 230 - 420 pcg/dL LAB CHEMISTRY METHOD 07/10/2024 2:10 PM EST [facility] Blood Venous blood specimen / Unknown Venipuncture / Unknown 07/10/2024 5:16 AM EST 07/10/2024 6:42 AM EST Maria Alejandra Melendez MD LAB BLOOD ORDERABLES Final Res ult [facility] [address] [place] [address], [place] [phone] * Thyroxine free (07/10/2024 5:16 AM EST) Free T4 0.92 0.70 - 1.80 ng/dL LAB CHEMISTRY METHOD 07/10/2024 2:04 PM EST [facility] Blood Venous blood specimen / Unknown Venipuncture / Unknown 07/10/2024 5:16 AM EST 07/10/2024 6:42 AM EST Maria Alejandra Melendez MD LAB BLOOD ORDERABLES Final Res ult [facility] [address] [place] [address], [place] [phone] * (ABNORMAL) Parathyroid hormone intact (07/10/2024 5:16 AM EST) PTH 10.5(L) 18.5 - 88.0 pcg/mL LAB CHEMISTRY METHOD 07/10/2024 1:47 PM EST [facility] Blood Venous blood specimen / Unknown Venipuncture / Unknown 07/10/2024 5:16 AM EST 07/10/2024 6:42 AM EST us Maria Alejandra Melendez MD LAB BLOOD ORDERABLES Final Res ult [facility] [address] [place] [address], * (ABNORMAL) CBC auto differential (07/10/2024 5:16 AM EST) WBC 16.9(H) 4.8 - 10.8 K/mcL LAB HEMETOLOGY METHOD 07/10/2024 7:29 AM [facility] RBC 3.30(L) 3.80 - 4.80 M/mcL LAB HEMETOLOGY METHOD 07/10/2024 7:29 AM [facility] Hemoglobin 7.6(L) 11.5 - 16.0 g/dL LAB HEMETOLOGY METHOD 07/10/2024 7:29 AM [facility] Hematocrit 24.4(L) 35.0 - 47.0 % LAB HEMETOLOGY METHOD 07/10/2024 7:29 AM [facility] MCV 74.4(L) 79.0 - 98.0 FL LAB HEMETOLOGY METHOD 07/10/2024 7:29 AM [facility] MCH 23.2(L) 27.0 - 32.0 pcg LAB HEMETOLOGY METHOD 07/10/2024 7:29 AM [facility] MCHC 31.1(L) 32.0 - 37.0 g/dL LAB HEMETOLOGY METHOD 07/10/2024 7:29 AM [facility] RDW 19.8(H) 11.0 - 15.0 % LAB HEMETOLOGY METHOD 07/10/2024 7:29 AM [facility] Platelets 277 130 - 400 K/mcL LAB HEMETOLOGY METHOD 07/10/2024 7:29 AM [facility] MPV 9.1 7.0 - 11.0 FL LAB HEMETOLOGY METHOD 07/10/2024 7:29 AM [facility] NRBC 0.0 <1.0 % LAB HEMETOLOGY METHOD 07/10/2024 7:29 AM [facility] NRBC Absolute 0.00 <0.10 K/mcL LAB HEMETOLOGY METHOD 07/10/2024 7:29 AM [facility] Neutrophils Relative 86.9 % LAB HEMETOLOGY METHOD 07/10/2024 7:29 AM [facility] Lymphocytes Relative 3.2 % LAB HEMETOLOGY METHOD 07/10/2024 7:29 AM [facility] Monocytes Relative 5.9 % LAB HEMETOLOGY METHOD 07/10/2024 7:29 AM [facility] Eosinophils Relative 2.8 % LAB HEMETOLOGY METHOD 07/10/2024 7:29 AM [facility] Basophils Relative 0.2 % LAB HEMETOLOGY METHOD 07/10/2024 7:29 AM [facility] Immature Granulocytes Relative 1.0 % LAB HEMETOLOGY METHOD 07/10/2024 7:29 AM [facility] Neutrophils Absolute 14.72(H) 1.50 - 7.00 K/mcL LAB HEMETOLOGY METHOD 07/10/2024 7:29 AM [facility] Lymphocytes Absolute 0.54(L) 1.00 - 5.00 K/mcL LAB HEMETOLOGY METHOD 07/10/2024 7:29 AM [facility] Monocytes Absolute 1.00 0.20 - 1.00 K/mcL LAB HEMETOLOGY METHOD 07/10/2024 7:29 AM [facility] Eosinophils Absolute 0.47 0.00 - 0.50 K/mcL LAB HEMETOLOGY METHOD 07/10/2024 7:29 AM [facility] Basophils Absolute 0.04 0.00 - 0.20 K/mcL LAB HEMETOLOGY METHOD 07/10/2024 7:29 AM EST [facility] Immature Granulocytes Absolute 0.17(H) 0.00 - 0.03 K/mcL LAB HEMETOLOGY METHOD 07/10/2024 7:29 AM EST [facility] Blood Venous blood specimen / Unknown Venipuncture / Unknown 07/10/2024 5:16 AM EST 07/10/2024 6:43 AM EST Maria Alejandra Melendez MD LAB BLOOD ORDERABLES Final Res ult Performing Organization Address City/[facility]/ZIP Co de Phone Number [facility] [address] [place] [address], [place] [phone] * (ABNORMAL) Magnesium (07/10/2024 5:16 AM EST) Magnesium 1.8(L) 1.9 - 2.6 mg/dL LAB CHEMISTRY METHOD 07/10/2024 7:38 AM EST [facility] Blood Venous blood specimen / Unknown Venipuncture / Unknown 07/10/2024 5:16 AM EST 07/10/2024 6:42 AM EST us Maria Alejandra Melendez MD LAB BLOOD ORDERABLES Final Res ult Performing Organization Address City/[facility]/ZIP Co de Phone Number [facility] [address] [place] [address], [place] [phone] * (ABNORMAL) Basic metabolic panel (07/10/2024 5:16 AM EST) Sodium 133 133 - 145 mmol/L LAB CHEMISTRY METHOD 07/10/2024 7:39 AM EST [facility] Potassium 3.8 3.5 - 5.5 mmol/L LAB CHEMISTRY METHOD 07/10/2024 7:39 AM EST [facility] Chloride 105 96 - 110 mmol/L LAB CHEMISTRY METHOD 07/10/2024 7:39 AM [facility] CO2 20(L) 21 - 32 mmol/L LAB CHEMISTRY METHOD 07/10/2024 7:39 AM [facility] Anion Gap 8 3 - 11 LAB CHEMISTRY METHOD 07/10/2024 7:39 AM [facility] Glucose 167(H) 70 - 100 mg/dL LAB CHEMISTRY METHOD 07/10/2024 7:39 AM [facility] BUN 65(H) 5 - 25 mg/dL LAB CHEMISTRY METHOD 07/10/2024 7:39 AM [facility] Creatinine 4.19(H) 0.50 - 1.10 mg/dL LAB CHEMISTRY METHOD 07/10/2024 7:39 AM [facility] eGFR 10(L) >=60 mL/min/1. 73m2 LAB CHEMISTRY METHOD 07/10/2024 7:39 AM [facility] Comment:Calculation based on the??Chronic Kidney Disease Epidemiology Collaboration (CKD-EPI) equation refit??without adjustment for race. BUN/Creatinine Ratio 15.5 LAB CHEMISTRY METHOD 07/10/2024 7:39 AM [facility] Calcium 8.5 8.5 - 10.5 mg/dL LAB CHEMISTRY METHOD 07/10/2024 7:39 AM [facility] Blood Venous blood specimen / Unknown Venipuncture / Unknown 07/10/2024 5:16 AM EST 07/10/2024 6:42 AM EST us Maria Alejandra Melendez MD LAB BLOOD ORDERABLES Final Res ult [facility] [address] [place] [address], * (ABNORMAL) POCT Glucose, blood (07/09/2024 7:52 PM EST) Glucose POCT 243(H) 70 - 100 mg/dL 07/09/2024 7:53 PM EST [facility] Blood Capillary blood specimen / Unknown 07/09/2024 7:52 PM EST 07/09/2024 7:54 PM EST us Maria Alejandra Melendez MD LAB POINT OF CARE TE ST DOCKED DEVICE UNSOLICITED RESULTS Final Result Performing Organization Address City/[facility]/ZIP Co de Phone Number [facility] [address] [place] [address], [place] [phone] * (ABNORMAL) POCT Glucose, blood (07/09/2024 4:27 PM EST) Glucose POCT 264(H) 70 - 100 mg/dL 07/09/2024 4:28 PM EST [facility] Blood Capillary blood specimen / Unknown 07/09/2024 4:27 PM EST 07/09/2024 4:29 PM EST us Maria Alejandra Melendez MD LAB POINT OF CARE TE ST DOCKED DEVICE UNSOLICITED RESULTS Final Result Performing Organization Address [facility] Co de Phone Number [facility] [address] [place] [address], [place] [phone] * (ABNORMAL) POCT Glucose, blood (07/09/2024 11:33 AM EST) Glucose POCT 179(H) 70 - 100 mg/dL 07/09/2024 11:34 AM EST [facility] Blood Capillary blood specimen / Unknown 07/09/2024 11:33 AM EST 07/09/2024 11:35 AM EST us Maria Alejandra Melendez MD LAB POINT OF CARE TE ST DOCKED DEVICE UNSOLICITED RESULTS Final Result Performing Organization Address City/[facility]/ZIP Co de Phone Number [facility] [address] [place] [address], [place] [phone] * (ABNORMAL) POCT Glucose, blood (07/09/2024 8:59 AM EST) [facility] Glucose POCT 175(H) 70 - 100 mg/dL 07/09/2024 9:06 AM [facility] Blood Capillary blood specimen / Unknown 07/09/2024 8:59 AM EST 07/09/2024 9:08 AM EST us Maria Alejandra Melendez MD LAB POINT OF CARE TE ST DOCKED DEVICE UNSOLICITED RESULTS Final Result [facility] [address] [place] [address], [place] [phone] * (ABNORMAL) CBC auto differential (07/09/2024 6:25 AM EST) [facility] WBC 18.4(H) 4.8 - 10.8 K/mcL LAB HEMETOLOGY METHOD 07/09/2024 8:05 AM [facility] RBC 3.50(L) 3.80 - 4.80 M/mcL LAB HEMETOLOGY METHOD 07/09/2024 8:05 AM [facility] Hemoglobin 8.3(L) 11.5 - 16.0 g/dL LAB HEMETOLOGY METHOD 07/09/2024 8:05 AM [facility] Hematocrit 26.1(L) 35.0 - 47.0 % LAB HEMETOLOGY METHOD 07/09/2024 8:05 AM [facility] MCV 74.4(L) 79.0 - 98.0 FL LAB HEMETOLOGY METHOD 07/09/2024 8:05 AM [facility] MCH 23.6(L) 27.0 - 32.0 pcg LAB HEMETOLOGY METHOD 07/09/2024 8:05 AM [facility] MCHC 31.8(L) 32.0 - 37.0 g/dL LAB HEMETOLOGY METHOD 07/09/2024 8:05 AM [facility] RDW 19.2(H) 11.0 - 15.0 % LAB HEMETOLOGY METHOD 07/09/2024 8:05 AM [facility] Platelets 333 130 - 400 K/mcL LAB HEMETOLOGY METHOD 07/09/2024 8:05 AM [facility] MPV 9.1 7.0 - 11.0 FL LAB HEMETOLOGY METHOD 07/09/2024 8:05 AM [facility] NRBC 0.0 <1.0 % LAB HEMETOLOGY METHOD 07/09/2024 8:05 AM [facility] NRBC Absolute 0.00 <0.10 K/mcL LAB HEMETOLOGY METHOD 07/09/2024 8:05 AM [facility] Neutrophils Relative 89.0 % LAB HEMETOLOGY METHOD 07/09/2024 8:05 AM [facility] Lymphocytes Relative 2.8 % LAB HEMETOLOGY METHOD 07/09/2024 8:05 AM [facility] Monocytes Relative 6.1 % LAB HEMETOLOGY METHOD 07/09/2024 8:05 AM [facility] Eosinophils Relative 1.1 % LAB HEMETOLOGY METHOD 07/09/2024 8:05 AM [facility] Basophils Relative 0.2 % LAB HEMETOLOGY METHOD 07/09/2024 8:05 AM [facility] Immature Granulocytes Relative 0.8 % LAB HEMETOLOGY METHOD 07/09/2024 8:05 AM [facility] Neutrophils Absolute 16.38(H) 1.50 - 7.00 K/mcL LAB HEMETOLOGY METHOD 07/09/2024 8:05 AM [facility] Lymphocytes Absolute 0.52(L) 1.00 - 5.00 K/mcL LAB HEMETOLOGY METHOD 07/09/2024 8:05 AM EST [facility] Monocytes Absolute 1.13(H) 0.20 - 1.00 K/[facility] LAB HEMETOLOGY METHOD 07/09/2024 8:05 AM EST [facility] Eosinophils Absolute 0.21 0.00 - 0.50 K/mcL LAB HEMETOLOGY METHOD 07/09/2024 8:05 AM EST [facility] Basophils Absolute 0.03 0.00 - 0.20 K/[facility] LAB HEMETOLOGY METHOD 07/09/2024 8:05 AM EST [facility] Immature Granulocytes Absolute 0.14(H) 0.00 - 0.03 K/[facility] LAB HEMETOLOGY METHOD 07/09/2024 8:05 AM [facility] Blood Venous blood specimen / Unknown Venipuncture / Unknown 07/09/2024 6:25 AM EST 07/09/2024 7:11 AM EST us Aye HEDRICK LAB BLOOD ORDERABLES Final Re sult [facility] [address] [place] [address], [place] [phone] * Creatine kinase (07/09/2024 6:25 AM EST) Pathologist [facility] Total CK 172 22 - 269 unit/L LAB CHEMISTRY METHOD 07/09/2024 8:11 AM EST [facility] Blood Venous blood specimen / Unknown Venipuncture / Unknown 07/09/2024 6:25 AM EST 07/09/2024 7:11 AM EST us Aye HEDRICK LAB BLOOD ORDERABLES Final Re sult [facility] [address] [place] [address], [place] [phone] * (ABNORMAL) Calcium, ionized (07/09/2024 6:25 AM EST) [facility] Calcium Ionized 5.66(H) 4.50 - 5.30 mg/dL 07/09/2024 7:23 AM EST [facility] Blood Venous blood specimen / Unknown Venipuncture / Unknown 07/09/2024 6:25 AM EST 07/09/2024 7:11 AM EST Aye HEDRICK LAB BLOOD ORDERABLES Final Re sult Performing Organization Address City/[facility]/ZIP Co de Phone Number [facility] [address] [place] [address], [place] [phone] * Magnesium (07/09/2024 6:25 AM EST) [facility] Magnesium 2.0 1.9 - 2.6 mg/dL LAB CHEMISTRY METHOD 07/09/2024 8:11 AM EST [facility] Blood Venous blood specimen / Unknown Venipuncture / Unknown 07/09/2024 6:25 AM EST 07/09/2024 7:11 AM EST Aye HEDRICK LAB BLOOD ORDERABLES Final Re sult Performing Organization Address City/[facility]/ZIP Co de Phone Number [facility] [address] [place] [address], [place] [phone] * (ABNORMAL) Basic metabolic panel (07/09/2024 6:25 AM EST) [facility] Sodium 131(L) 133 - 145 mmol/L LAB CHEMISTRY METHOD 07/09/2024 8:12 AM [facility] Potassium 3.8 3.5 - 5.5 mmol/L LAB CHEMISTRY METHOD 07/09/2024 8:12 AM EST [facility] Chloride 101 96 - 110 mmol/L LAB CHEMISTRY METHOD 07/09/2024 8:12 AM [facility] CO2 21 21 - 32 mmol/L LAB CHEMISTRY METHOD 07/09/2024 8:12 AM [facility] Anion Gap 9 3 - 11 LAB CHEMISTRY METHOD 07/09/2024 8:12 AM [facility] Glucose 170(H) 70 - 100 mg/dL LAB CHEMISTRY METHOD 07/09/2024 8:12 AM [facility] BUN 63(H) 5 - 25 mg/dL LAB CHEMISTRY METHOD 07/09/2024 8:12 AM [facility] Creatinine 4.07(H) 0.50 - 1.10 mg/dL LAB CHEMISTRY METHOD 07/09/2024 8:12 AM [facility] eGFR 11(L) >=60 mL/min/1. 73m2 LAB CHEMISTRY METHOD 07/09/2024 8:12 AM [facility] Comment:Calculation based on the??Chronic Kidney Disease Epidemiology Collaboration (CKD-EPI) equation refit??without adjustment for race. BUN/Creatinine Ratio 15.5 LAB CHEMISTRY METHOD 07/09/2024 8:12 AM [facility] Calcium 9.5 8.5 - 10.5 mg/dL LAB CHEMISTRY METHOD 07/09/2024 8:12 AM [facility] Blood Venous blood specimen / Unknown Venipuncture / Unknown 07/09/2024 6:25 AM EST 07/09/2024 7:11 AM EST us Aye HEDRICK LAB BLOOD ORDERABLES Final Re sult [facility] [address] [place] [address], * XR Chest 1 View (07/08/2024 10:00 [...] Signed Date: 07/09/2024 09:03 ET Workstation ID: [id number] Transcribed By: Self Edit Transcribed Date: 07/09/2024 [...] Signed Date: 07/09/2024 09:03 ET Workstation ID: [id number] Transcribed By: Self Edit Transcribed Date: 07/09/2024 09:02 ET Aye HEDRICK IMG XR PROCEDURES Final Resul t * Green LI heparin tube (07/08/2024 9:50 PM EST) Extra Tube Hold for add-ons. 07/09/2024 12:01 AM EST [facility] Comment:Auto resulted. Blood Venous blood specimen / Unknown 07/08/2024 9:50 PM EST 07/08/2024 10:41 PM EST Wayne Donahue MD LAB BLOOD ORDERABLES Final Re sult Performing Organization Address [facility] Co de Phone Number [facility] [address] [place] [address], [place] [phone] * Culture blood (07/08/2024 9:49 PM EST) Culture, Blood No growth at 5 days 07/13/2024 10:01 PM EST [facility] Blood Venous blood specimen / Unknown Venipuncture / Unknown 07/08/2024 9:49 PM EST 07/08/2024 9:54 PM EST [facility] MICROBIOLOGY - GENERAL OR DERABLES Final Result Performing Organization Address [facility] Co de Phone Number [facility] [address] [place] [address], [place] [phone] * Lactate (07/08/2024 9:42 PM EST) Lactate 1.3 mmol/L 07/08/2024 10:30 PM EST [facility] Blood Venous blood specimen / Unknown Venipuncture / Unknown 07/08/2024 9:42 PM EST 07/08/2024 9:54 PM EST [facility] BLOOD ORDERABLES Final Re sult Performing Organization Address [facility] Co de Phone Number [facility] [address] [place] [address], [place] [phone] * Culture blood (07/08/2024 9:37 PM EST) Culture, Blood No growth at 5 days 07/13/2024 10:01 PM EST [facility] Blood Venous blood specimen / Unknown Venipuncture / Unknown 07/08/2024 9:37 PM EST 07/08/2024 9:56 PM EST [facility] MICROBIOLOGY - GENERAL OR DERABLES Final Result [facility] [address] [place] [address], [place] [phone] * (ABNORMAL) POCT Glucose, blood (07/08/2024 8:46 PM EST) [facility] Glucose POCT 264(H) 70 - 100 mg/dL 07/08/2024 8:46 PM EST [facility] Blood Capillary blood specimen / Unknown 07/08/2024 8:46 PM EST 07/08/2024 8:47 PM EST Wayne Donahue MD LAB POINT OF CARE TE ST DOCKED DEVICE UNSOLICITED RESULTS Final Result Performing Organization Address [facility]/ZIP Co de Phone Number [facility] [address] [place] [address], [place] [phone] * (ABNORMAL) Basic metabolic panel (07/08/2024 8:30 PM EST) [facility] [facility] Sodium 130(L) 133 - 145 mmol/L LAB CHEMISTRY METHOD 07/08/2024 11:37 PM [facility] Potassium 4.0 3.5 - 5.5 mmol/L LAB CHEMISTRY METHOD 07/08/2024 11:37 PM [facility] Chloride 98 96 - 110 mmol/L LAB CHEMISTRY METHOD 07/08/2024 11:37 PM [facility] CO2 22 21 - 32 mmol/L LAB CHEMISTRY METHOD 07/08/2024 11:37 PM [facility] Anion Gap 10 3 - 11 LAB CHEMISTRY METHOD 07/08/2024 11:37 PM [facility] Glucose 261(H) 70 - 100 mg/dL LAB CHEMISTRY METHOD 07/08/2024 11:37 PM [facility] BUN 64(H) 5 - 25 mg/dL LAB CHEMISTRY METHOD 07/08/2024 11:37 PM EST [facility] Creatinine 4.32(H) 0.50 - 1.10 mg/dL LAB CHEMISTRY METHOD 07/08/2024 11:37 PM [facility] eGFR 10(L) >=60 mL/min/1. 73m2 LAB CHEMISTRY METHOD 07/08/2024 11:37 PM EST [facility] Comment:Calculation based on the??Chronic Kidney Disease Epidemiology Collaboration (CKD-EPI) equation refit??without adjustment for race. BUN/Creatinine Ratio 14.8 LAB CHEMISTRY METHOD 07/08/2024 11:37 PM [facility] Calcium 10.3 8.5 - 10.5 mg/dL LAB CHEMISTRY METHOD 07/08/2024 11:37 PM [facility] Blood Venous blood specimen / Unknown Venipuncture / Unknown 07/08/2024 8:30 PM EST 07/08/2024 8:37 PM EST us Aye HEDRICK LAB BLOOD ORDERABLES Final Re sult [facility] [address] [place] [address], * (ABNORMAL) Complete blood count (07/08/2024 8:30 PM EST) WBC 20.5(H) 4.8 - 10.8 K/mcL LAB HEMETOLOGY METHOD 07/08/2024 8:56 PM EST [facility] RBC 4.00 3.80 - 4.80 M/mcL LAB HEMETOLOGY METHOD 07/08/2024 8:56 PM [facility] Hemoglobin 9.2(L) 11.5 - 16.0 g/dL LAB HEMETOLOGY METHOD 07/08/2024 8:56 PM [facility] Hematocrit 30.0(L) 35.0 - 47.0 % LAB HEMETOLOGY METHOD 07/08/2024 8:56 PM EST [facility] MCV 75.8(L) 79.0 - 98.0 FL LAB HEMETOLOGY METHOD 07/08/2024 8:56 PM [facility] MCH 23.2(L) 27.0 - 32.0 pcg LAB HEMETOLOGY METHOD 07/08/2024 8:56 PM EST [facility] MCHC 30.7(L) 32.0 - 37.0 g/dL LAB HEMETOLOGY METHOD 07/08/2024 8:56 PM [facility] RDW 19.9(H) 11.0 - 15.0 % LAB HEMETOLOGY METHOD 07/08/2024 8:56 PM [facility] Platelets 332 130 - 400 K/mcL LAB HEMETOLOGY METHOD 07/08/2024 8:56 PM EST [facility] MPV 8.6 7.0 - 11.0 FL LAB HEMETOLOGY METHOD 07/08/2024 8:56 PM EST [facility] NRBC 0.0 <1.0 % LAB HEMETOLOGY METHOD 07/08/2024 8:56 PM [facility] NRBC Absolute 0.00 <0.10 K/mcL LAB HEMETOLOGY METHOD 07/08/2024 8:56 PM [facility] Blood Venous blood specimen / Unknown Venipuncture / Unknown 07/08/2024 8:30 PM EST 07/08/2024 8:37 PM EST us Aye HEDRICK LAB BLOOD ORDERABLES Final Re sult [facility] [address] [place] [address], * (ABNORMAL) Electrolyte panel (07/08/2024 8:30 PM EST) Sodium 130(L) 133 - 145 mmol/L LAB CHEMISTRY METHOD 07/08/2024 11:37 PM EST [facility] Potassium 4.0 3.5 - 5.5 mmol/L LAB CHEMISTRY METHOD 07/08/2024 11:37 PM EST [facility] Chloride 98 96 - 110 mmol/L LAB CHEMISTRY METHOD 07/08/2024 11:37 PM EST [facility] CO2 22 21 - 32 mmol/L LAB CHEMISTRY METHOD 07/08/2024 11:37 PM EST [facility] Anion Gap 10 3 - 11 LAB CHEMISTRY METHOD 07/08/2024 11:37 PM [facility] Blood Venous blood specimen / Unknown Venipuncture / Unknown 07/08/2024 8:30 PM EST 07/08/2024 8:37 PM EST us Aye HEDRICK LAB BLOOD ORDERABLES Final Re sult [facility] [address] [place] [address], [place] [phone] * Transfuse RBC (07/08/2024 6:45 PM EST) Raya HEDRICK BLOOD TRANSFUSION ORDE RABLES Final Result * Transfuse RBC: 1 Units (07/08/2024 6:45 PM EST) us Raya HEDRICK BLOOD TRANSFUSION ORDE RABLES Final Result * (ABNORMAL) POCT Glucose, blood (07/08/2024 6:19 PM EST) Glucose POCT 276(H) 70 - 100 mg/dL 07/08/2024 6:19 PM EST [facility] Blood Capillary blood specimen / Unknown 07/08/2024 6:19 PM EST 07/08/2024 6:20 PM EST Wayne Donahue MD LAB POINT OF CARE TE ST DOCKED DEVICE UNSOLICITED RESULTS Final Result Performing Organization Address [facility] Co de Phone Number [facility] [address] [place] [address], [place] [phone] * PATHOLOGIST REVIEW PROTEIN ELECTROPHORESIS (07/08/2024 5:52 PM EST) [facility] Pathologist Interpretation Reviewed by Rosenda Galeana MD 07/14/2024 9:21 AM EST [facility] Blood Venous blood specimen / Unknown Venipuncture / Unknown 07/08/2024 5:52 PM EST 07/08/2024 6:00 PM EST Aye HEDRICK LAB BLOOD ORDERABLES Final Re sult Performing Organization Address [facility] Co de Phone Number [facility] [address] [place] [address], [place] [phone] * Protein, total (07/08/2024 5:52 PM EST) [facility] Total Protein 6.4 6.0 - 8.0 g/dL LAB CHEMISTRY METHOD 07/08/2024 6:30 PM EST [facility] Blood Venous blood specimen / Unknown Venipuncture / Unknown 07/08/2024 5:52 PM EST 07/08/2024 6:00 PM EST Aye HEDRICK LAB BLOOD ORDERABLES Final Re sult Performing Organization Address [facility]/ZIP Co de Phone Number [facility] [address] [place] [address], [place] [phone] * (ABNORMAL) Basic metabolic panel (07/08/2024 5:52 PM EST) [facility] Sodium 128(L) 133 - 145 mmol/L LAB CHEMISTRY METHOD 07/08/2024 6:50 PM [facility] Potassium 4.0 3.5 - 5.5 mmol/L LAB CHEMISTRY METHOD 07/08/2024 6:50 PM [facility] Chloride 96 96 - 110 mmol/L LAB CHEMISTRY METHOD 07/08/2024 6:50 PM [facility] CO2 25 21 - 32 mmol/L LAB CHEMISTRY METHOD 07/08/2024 6:50 PM [facility] Anion Gap 7 3 - 11 LAB CHEMISTRY METHOD 07/08/2024 6:50 PM [facility] Glucose 259(H) 70 - 100 mg/dL LAB CHEMISTRY METHOD 07/08/2024 6:50 PM [facility] BUN 67(H) 5 - 25 mg/dL LAB CHEMISTRY METHOD 07/08/2024 6:50 PM [facility] Creatinine 4.12(H) 0.50 - 1.10 mg/dL LAB CHEMISTRY METHOD 07/08/2024 6:50 PM [facility] eGFR 10(L) >=60 mL/min/1. 73m2 LAB CHEMISTRY METHOD 07/08/2024 6:50 PM [facility] Comment:Calculation based on the??Chronic Kidney Disease Epidemiology Collaboration (CKD-EPI) equation refit??without adjustment for race. BUN/Creatinine Ratio 16.3 LAB CHEMISTRY METHOD 07/08/2024 6:50 PM [facility] Calcium 10.8(H) 8.5 - 10.5 mg/dL LAB CHEMISTRY METHOD 07/08/2024 6:50 PM [facility] Blood Venous blood specimen / Unknown Venipuncture / Unknown 07/08/2024 5:52 PM EST 07/08/2024 6:00 PM EST us Aye HEDRICK LAB BLOOD ORDERABLES Final Re sult [facility] [address] [place] [address], [place] [phone] * (ABNORMAL) Serum albumin (07/08/2024 5:52 PM EST) Albumin 2.1(L) 3.2 - 5.0 g/dL LAB CHEMISTRY METHOD 07/08/2024 6:34 PM EST [facility] Blood Venous blood specimen / Unknown Venipuncture / Unknown 07/08/2024 5:52 PM EST 07/08/2024 6:00 PM EST Aye HEDRICK LAB BLOOD ORDERABLES Final Re sult Performing Organization Address City/[facility] Co de Phone Number [facility] [address] [place] [address], [place] [phone] * (ABNORMAL) Electrolyte panel (07/08/2024 5:52 PM EST) [facility] Sodium 128(L) 133 - 145 mmol/L LAB CHEMISTRY METHOD 07/08/2024 6:34 PM EST [facility] Potassium 4.0 3.5 - 5.5 mmol/L LAB CHEMISTRY METHOD 07/08/2024 6:34 PM [facility] Chloride 96 96 - 110 mmol/L LAB CHEMISTRY METHOD 07/08/2024 6:34 PM [facility] CO2 25 21 - 32 mmol/L LAB CHEMISTRY METHOD 07/08/2024 6:34 PM [facility] Anion Gap 7 3 - 11 LAB CHEMISTRY METHOD 07/08/2024 6:34 PM [facility] Blood Venous blood specimen / Unknown Venipuncture / Unknown 07/08/2024 5:52 PM EST 07/08/2024 6:00 PM EST Aye HEDRICK LAB BLOOD ORDERABLES Final Re sult Performing Organization Address City/[facility]/ZIP Co de Phone Number [facility] [address] [place] [address], [place] [phone] * (ABNORMAL) Protein electrophoresis, serum (07/08/2024 5:52 PM EST) Pathologist [facility] Total Protein 6.4 6.0 - 8.0 g/dL LAB CHEMISTRY METHOD 07/14/2024 9:21 AM EST [facility] Albumin, Serum 2.2(L) 2.9 - 4.1 g/dL LAB CHEMISTRY METHOD 07/14/2024 9:21 AM EST [facility] Alpha 1 Globulin (g/dL) 0.6(H) 0.1 - 0.5 g/dL LAB CHEMISTRY METHOD 07/14/2024 9:21 AM [facility] Alpha 2 Globulin (g/dL) 1.2 0.7 - 1.5 g/dL LAB CHEMISTRY METHOD 07/14/2024 9:21 AM [facility] Beta (g/dL) 1.0 0.7 - 1.5 g/dL LAB CHEMISTRY METHOD 07/14/2024 9:21 AM [facility] Gamma Globulin (g/dL) 1.5 0.7 - 1.9 g/dL LAB CHEMISTRY METHOD 07/14/2024 9:21 AM [facility] SPEP Interpretation Hypoalbuminem ia, suggestive of malnutrition, decreased hepatic synthesis or renal/GI loss Elevated alpha-1 fraction, suggestive of acute or or chronic inflammation. LAB CHEMISTRY METHOD 07/14/2024 9:21 AM [facility] Blood Venous blood specimen / Unknown Venipuncture / Unknown 07/08/2024 5:52 PM EST 07/08/2024 6:00 PM EST us Aye HEDRICK LAB BLOOD ORDERABLES Final Re robson [facility] [address] [place] [address], [place] [phone] * US Retroperitoneal Complete (07/08/2024 4:30 PM EST) Anatomical Region Laterality Modality Body Ultrasound 07/10/2024 2:07 PM EST Impressions 07/10/2024 2:08 PM EST Normal appearance of the kidneys. -------- FINAL REPORT -------- Dictated By: Primo Dee Dictated Date: 07/10/2024 14:07 ET Assigned Physician: Primo Dee Reviewed and Electronically Signed By: Primo Dee Signed Date: 07/10/2024 14:08 ET Workstation ID: [id number] Transcribed By: Self Edit Transcribed Date: 07/10/2024 [...] Signed Date: 07/10/2024 14:08 ET Workstation ID: [id number] Transcribed By: Self Edit Transcribed Date: 07/10/2024 14:07 ET Aye HEDRICK [facility] US PROCEDURES Final Resul t * Respiratory virus panel molecular study (07/08/2024 2:59 PM EST) Adenovirus Detection by PCR Not Detected Not Detected LAB MICROBIOLOGY METHOD 07/08/2024 4:18 PM EST [facility] Influenza A PCR Not Detected Not Detected LAB MICROBIOLOGY METHOD 07/08/2024 4:18 PM EST [facility] Influenza B PCR Not Detected Not Detected LAB MICROBIOLOGY METHOD 07/08/2024 4:18 PM [facility] Coronavirus 229E Not Detected Not Detected LAB MICROBIOLOGY METHOD 07/08/2024 4:18 PM [facility] Coronavirus HKU1 Not Detected Not Detected LAB MICROBIOLOGY METHOD 07/08/2024 4:18 PM [facility] Coronavirus OC43 Not Detected Not Detected LAB MICROBIOLOGY METHOD 07/08/2024 4:18 PM [facility] Coronavirus NL63 Not Detected Not Detected LAB MICROBIOLOGY METHOD 07/08/2024 4:18 PM [facility] Parainfluenza Virus 1 Not Detected Not Detected LAB MICROBIOLOGY METHOD 07/08/2024 4:18 PM [facility] Parainfluenza Virus 2 Not Detected Not Detected LAB MICROBIOLOGY METHOD 07/08/2024 4:18 PM [facility] Parainfluenza Virus 3 Not Detected Not Detected LAB MICROBIOLOGY METHOD 07/08/2024 4:18 PM [facility] Parainfluenza Virus 4 Not Detected Not Detected LAB MICROBIOLOGY METHOD 07/08/2024 4:18 PM [facility] RSV PCR Not Detected Not Detected LAB MICROBIOLOGY METHOD 07/08/2024 4:18 PM [facility] Human Metapneumovirus A and B Not Detected Not Detected LAB MICROBIOLOGY METHOD 07/08/2024 4:18 PM EST [facility] Rhinovirus/Entero virus Not Detected Not Detected LAB MICROBIOLOGY METHOD 07/08/2024 4:18 PM EST [facility] Bordetella pertussis Not Detected Not Detected LAB MICROBIOLOGY METHOD 07/08/2024 4:18 PM EST [facility] Bordetella parapertussis Not Detected Not Detected LAB MICROBIOLOGY METHOD 07/08/2024 4:18 PM EST [facility] Mycoplasma pneumo by PCR Not Detected Not Detected LAB MICROBIOLOGY METHOD 07/08/2024 4:18 PM EST [facility] Chlamydia pneumoniae Not Detected Not Detected LAB MICROBIOLOGY METHOD 07/08/2024 4:18 PM EST [facility] SARS COV-2 Not Detected Not Detected LAB MICROBIOLOGY METHOD 07/08/2024 4:18 PM EST [facility] Swab Both anterior nares / Unknown Non-blood Collection / Unknown 07/08/2024 2:59 PM EST 07/08/2024 3:15 PM EST [facility] - 07/08/2024 4:18 PM EST Testing was performed using the [employer] Respiratory Pathogen PCR Assay. All results must [...] MICROBIOLOGY - GENERAL OR DERABLES Final Result [facility] [address] [place] [address], * XR Chest 2 Views (07/08/2024 2:01 PM EST) Anatomical Region Laterality Modality Body Radiographic Jennifer ging 07/08/2024 2:06 PM EST Impressions 07/08/2024 2:07 PM EST No acute findings. -------- FINAL REPORT -------- Dictated By: Henrique Bray Dictated Date: 07/08/2024 14:06 ET Assigned Physician: Henrique Bray Reviewed and Electronically Signed By: Henrique Bray Signed Date: 07/08/2024 14:07 ET Workstation ID: [id number] Transcribed By: Self Edit Transcribed Date: 07/08/2024 [...] Signed Date: 07/08/2024 14:07 ET Workstation ID: [id number] Transcribed By: Self Edit Transcribed Date: 07/08/2024 14:06 ET us Jj Wolfe MD IMG XR PROCEDURES Final R esult * Type and screen (07/08/2024 1:18 PM EST) ABO Group O 07/08/2024 2:42 PM EST [facility] Rh Type Positive 07/08/2024 2:42 PM EST [facility] Antibody Screen Negative 07/08/2024 2:42 PM EST [facility] Blood Venous blood specimen / Unknown Venipuncture / Unknown 07/08/2024 1:18 PM EST 07/08/2024 1:34 PM EST Raya HEDRICK LAB BLOOD BANK TEST OR DERABLES Final Result Performing Organization Address [facility]/ZIP Co de Phone Number [facility] [address] [place] [address], [place] [phone] * (ABNORMAL) Troponin I high sensitivity (07/08/2024 1:18 PM EST) [facility] High Sensitivity Troponin I 81(H) [...] ORDERABLES [place] l Result Performing Organization Address City/[facility]/ZIP Co de Phone Number [facility] [address] [place] [address], [place] [phone] * Prepare RBC: 1 Units (07/08/2024 1:17 PM EST) [facility] Product Code [id number] 07/08/2024 4:13 PM [facility] Unit Number [id number] 07/08/19 4:13 PM [facility] Crossmatch Compatible 07/08/2024 2:53 PM [facility] Dispense Status Transfused 07/08/2024 4:13 PM [facility] Unit ABO Rh OPOS 07/08/2024 4:13 PM [facility] Unit Expiration Date Time [id number] 07/08/2024 4:13 PM [facility] Unit Blood Type 5100 07/08/2024 4:13 PM [facility] Blood Venous blood specimen / Unknown 07/08/2024 1:17 PM EST 06/17/2024 10:17 AM EST Raya HEDRICK BLOOD BANK PRODUCT ORD ERABLES Final Result Performing Organization Address City/[facility]/ZIP Co de Phone Number [facility] [address] [place] [address], * Culture urine (07/08/2024 12:59 PM EST) Pathologist [facility] Culture, Urine No growth 07/09/2024 10:44 AM [facility] Urine Urine specimen obtained by clean catch procedure / Unknown Non-blood Collection / Unknown 07/08/2024 12:59 PM EST 07/08/2024 1:21 PM EST Jj Wolfe MD LAB MICROBIOLOGY - GENERA L ORDERABLES Final Result [facility] [address] [place] [address], [place] [phone] * Robertson urine culture tube (07/08/2024 12:59 PM EST) Extra Tube Hold for add-ons. 07/08/2024 3:02 PM [facility] Comment:Auto resulted. Urine Urine specimen obtained by clean catch procedure / Unknown Non-blood Collection / Unknown 07/08/2024 12:59 PM EST 07/08/2024 1:11 PM EST Jj Wolfe MD LAB URINE ORDERABLES [place] l Result [facility] [address] [place] [address], [place] [phone] * (ABNORMAL) Urinalysis with reflex microscopic and culture (07/08/2024 12:59 PM EST) [facility] Specific [place] Urine 1.020 1.003 - 1.030 LAB URINALYSIS - AUTOMATED METHOD 07/08/2024 1:21 PM [facility] pH, Urine 5.5 5.0 - 8.0 pH LAB URINALYSIS - AUTOMATED METHOD 07/08/2024 1:21 PM [facility] Leukocytes, Urine Negative Negative LAB URINALYSIS - AUTOMATED METHOD 07/08/2024 1:21 PM [facility] Nitrite, Urine Negative Negative LAB URINALYSIS - AUTOMATED METHOD 07/08/2024 1:21 PM [facility] Protein, Urine 100(A) <=Trace mg/dL LAB URINALYSIS - AUTOMATED METHOD 07/08/2024 1:21 PM [facility] Glucose, Urine 500(A) Negative mg/dL LAB URINALYSIS - AUTOMATED METHOD 07/08/2024 1:21 PM [facility] Ketones, Urine Negative Negative mg/dL LAB URINALYSIS - AUTOMATED METHOD 07/08/2024 1:21 PM [facility] Urobilinogen, Urine 0.2 0.2 - 1.0 mg/dL LAB URINALYSIS - AUTOMATED METHOD 07/08/2024 1:21 PM [facility] Bilirubin, Urine Negative Negative LAB URINALYSIS - AUTOMATED METHOD 07/08/2024 1:21 PM [facility] Blood, Urine Large(A) Negative LAB URINALYSIS - AUTOMATED METHOD 07/08/2024 1:21 PM [facility] RBC, Urine 21.6(H) 0 - 4 /HPF LAB URINALYSIS - AUTOMATED METHOD 07/08/2024 1:21 PM [facility] WBC, Urine 7.3(H) 0 - 4 /HPF LAB URINALYSIS - AUTOMATED METHOD 07/08/2024 1:21 PM [facility] Squamous Epithelial, Urine 30 0 - 60 /LPF LAB URINALYSIS - AUTOMATED METHOD 07/08/2024 1:21 PM [facility] Bacteria, Urine Negative Negative /HPF LAB URINALYSIS - AUTOMATED METHOD 07/08/2024 1:21 PM [facility] Hyaline Casts, Urine 1.7 0 - 3 /LPF LAB URINALYSIS - AUTOMATED METHOD 07/08/2024 1:21 PM [facility] Urine Urine specimen obtained by clean catch procedure / Unknown Non-blood Collection / Unknown 07/08/2024 12:59 PM EST 07/08/2024 1:11 PM EST Jj Wolfe MD LAB URINE ORDERABLES [place] dominguez Result [facility] [address] [place] [address], [place] [phone] * CT Head wo Contrast (07/08/2024 12:11 [...] Signed Date: 07/08/2024 12:23 ET Workstation ID: [id number] Transcribed By: Self Edit Transcribed Date: 07/08/2024 [...] Signed Date: 07/08/2024 12:23 ET Workstation ID: [id number] Transcribed By: Self Edit Transcribed Date: 07/08/2024 12:22 ET Raya Bhavikjose fKhushboo HEDRICK IMG CT PROCEDURES [place] l Result [...] Signed Date: 07/08/2024 12:27 ET Workstation ID: [id number] Transcribed By: Self Edit Transcribed Date: 07/08/2024 [...] Signed Date: 07/08/2024 12:27 ET Workstation ID: [id number] Transcribed By: Self Edit Transcribed Date: 07/08/2024 [...] Re sult [facility] [address] [place] [address], * (ABNORMAL) Iron and TIBC (07/08/2024 11:10 AM EST) Iron 20(L) 40 - 150 mcg/dL LAB CHEMISTRY METHOD 07/08/2024 3:44 PM EST [facility] Comment:Hemolysis present TIBC 186(L) 250 - 450 mcg/dL LAB CHEMISTRY METHOD 07/08/2024 3:44 PM EST [facility] Iron Saturation 11(L) 15 - 50 % LAB CHEMISTRY METHOD 07/08/2024 3:44 PM [facility] Blood Venous blood specimen / Unknown Venipuncture / Unknown 07/08/2024 11:10 AM EST 07/08/2024 11:42 AM EST us Wayne Donahue MD LAB BLOOD ORDERABLES Final Re sult Performing Organization Address City/[facility]/ZIP Co de Phone Number [facility] [address] [place] [address], [place] [phone] * (ABNORMAL) Ferritin (07/08/2024 11:10 AM EST) Ferritin 708(H) 8 - 252 ng/mL LAB CHEMISTRY METHOD 07/08/2024 3:51 PM [facility] Blood Venous blood specimen / Unknown Venipuncture / Unknown 07/08/2024 11:10 AM EST 07/08/2024 11:42 AM EST us Wayne Donahue MD LAB BLOOD ORDERABLES Final Re sult Performing Organization Address City/[facility]/ZIP Co de Phone Number [facility] [address] [place] [address], [place] [phone] * (ABNORMAL) Reticulocyte count (07/08/2024 11:10 AM EST) Retic Ct Abs 0.050 0.030 - 0.090 M/mcL LAB HEMETOLOGY METHOD 07/08/2024 2:52 PM [facility] Retic Ct Pct 1.4 0.7 - 1.7 % LAB HEMETOLOGY METHOD 07/08/2024 2:52 PM EST [facility] Immature Retic Fract 24.5(H) 2.3 - 15.9 % LAB HEMETOLOGY METHOD 07/08/2024 2:52 PM EST [facility] Reticulocyte Hemoglobin 22.5(L) >29.0 pcg LAB HEMETOLOGY METHOD 07/08/2024 2:52 PM EST [facility] Blood Venous blood specimen / Unknown Venipuncture / Unknown 07/08/2024 11:10 AM EST 07/08/2024 11:42 AM EST us Wayne Donahue MD LAB BLOOD ORDERABLES Final Re sult Performing Organization Address City/[facility]/ZIP Co de Phone Number [facility] [address] [place] [address], [place] [phone] * (ABNORMAL) Haptoglobin (07/08/2024 11:10 AM EST) Haptoglobin 570(H) 16 - 200 mg/dL LAB CHEMISTRY METHOD 07/08/2024 3:44 PM EST [facility] Blood Venous blood specimen / Unknown Venipuncture / Unknown 07/08/2024 11:10 AM EST 07/08/2024 11:42 AM EST us Wayne Donahue MD LAB BLOOD ORDERABLES Final Re sult Performing Organization Address City/[facility]/ZIP Co de Phone Number [facility] [address] [place] [address], [place] [phone] * (ABNORMAL) Folate (07/08/2024 11:10 AM EST) Folate >20.0(H) 2.8 - 17.0 ng/ml LAB CHEMISTRY METHOD 07/08/2024 3:51 PM EST [facility] Blood Venous blood specimen / Unknown Venipuncture / Unknown 07/08/2024 11:10 AM EST 07/08/2024 11:42 AM EST us Wayne Donahue MD LAB BLOOD ORDERABLES Final Re sult Performing Organization Address City/[facility]/ZIP Co de Phone Number [facility] [address] [place] [address], [place] [phone] * Vitamin B12 (07/08/2024 11:10 AM EST) Vitamin B-12 384 250 - 900 pcg/mL LAB CHEMISTRY METHOD 07/08/2024 3:51 PM EST [facility] Blood Venous blood specimen / Unknown Venipuncture / Unknown 07/08/2024 11:10 AM EST 07/08/2024 11:42 AM EST us Wayne Donahue MD LAB BLOOD ORDERABLES Final Re sult Performing Organization Address [facility]/ZIP Co de Phone Number [facility] [address] [place] [address], [place] [phone] * Cortisol (07/08/2024 11:10 AM EST) Cortisol [...] ORDERABLES Final Re sult Performing Organization Address [facility]/ZIP Co de Phone Number [facility] [address] [place] [address], [place] [phone] * (ABNORMAL) Thyroid stimulating hormone (07/08/2024 11:10 AM EST) TSH 4.50(H) 0.40 - 4.00 mcIU/mL LAB CHEMISTRY METHOD 07/08/2024 3:31 PM EST [facility] Blood Venous blood specimen / Unknown Venipuncture / Unknown 07/08/2024 11:10 AM EST 07/08/2024 11:42 AM EST us Wayne Donahue MD LAB BLOOD ORDERABLES Final Re sult [facility] [address] [place] [address], [place] [phone] * Uric acid (07/08/2024 11:10 AM EST) Pathologist [facility] Uric Acid 7.2 3.1 - 7.8 mg/dL LAB CHEMISTRY METHOD 07/08/2024 3:44 PM EST [facility] Blood Venous blood specimen / Unknown Venipuncture / Unknown 07/08/2024 11:10 AM EST 07/08/2024 11:42 AM EST us Wayne Donahue MD LAB BLOOD ORDERABLES Final Re sult [facility] [address] [place] [address], [place] [phone] * (ABNORMAL) Osmolality (07/08/2024 11:10 AM EST) Osmolality Iván 307(H) 280 - 300 mOsm/kg LAB CHEMISTRY METHOD 07/08/2024 6:51 PM EST [facility] Blood Venous blood specimen / Unknown Venipuncture / Unknown 07/08/2024 11:10 AM EST 07/08/2024 11:42 AM EST us Wayne Donahue MD LAB BLOOD ORDERABLES Final Re sult Performing Organization Address City/[facility]/ZIP Co de Phone Number [facility] [address] [place] [address], [place] [phone] * (ABNORMAL) Parathyroid hormone intact (07/08/2024 11:10 AM EST) PTH 6.5(L) 18.5 - 88.0 pcg/mL LAB CHEMISTRY METHOD 07/08/2024 3:31 PM EST [facility] Blood Venous blood specimen / Unknown Venipuncture / Unknown 07/08/2024 11:10 AM EST 07/08/2024 11:42 AM EST Wayne Donahue MD LAB BLOOD ORDERABLES Final Re sult Performing Organization Address [facility]/ZIP Co de Phone Number [facility] [address] [place] [address], [place] [phone] * (ABNORMAL) CBC auto differential (07/08/2024 11:10 AM EST) [facility] WBC 18.9(H) 4.8 - 10.8 K/mcL LAB HEMETOLOGY METHOD 07/08/2024 11:51 AM [facility] RBC 3.30(L) 3.80 - 4.80 M/mcL LAB HEMETOLOGY METHOD 07/08/2024 11:51 AM [facility] Hemoglobin 7.3(L) 11.5 - 16.0 g/dL LAB HEMETOLOGY METHOD 07/08/2024 11:51 AM [facility] Hematocrit 23.7(L) 35.0 - 47.0 % LAB HEMETOLOGY METHOD 07/08/2024 11:51 AM [facility] MCV 72.3(L) 79.0 - 98.0 FL LAB HEMETOLOGY METHOD 07/08/2024 11:51 AM [facility] MCH 22.3(L) 27.0 - 32.0 pcg LAB HEMETOLOGY METHOD 07/08/2024 11:51 AM [facility] MCHC 30.8(L) 32.0 - 37.0 g/dL LAB HEMETOLOGY METHOD 07/08/2024 11:51 AM [facility] RDW 16.4(H) 11.0 - 15.0 % LAB HEMETOLOGY METHOD 07/08/2024 11:51 AM [facility] Platelets 408(H) 130 - 400 K/mcL LAB HEMETOLOGY METHOD 07/08/2024 11:51 AM [facility] MPV 8.9 7.0 - 11.0 FL LAB HEMETOLOGY METHOD 07/08/2024 11:51 AM [facility] NRBC 0.0 <1.0 % LAB HEMETOLOGY METHOD 07/08/2024 11:51 AM [facility] NRBC Absolute 0.00 <0.10 K/mcL LAB HEMETOLOGY METHOD 07/08/2024 11:51 AM [facility] Neutrophils Relative 89.5 % LAB HEMETOLOGY METHOD 07/08/2024 11:51 AM [facility] Lymphocytes Relative 2.4 % LAB HEMETOLOGY METHOD 07/08/2024 11:51 AM [facility] Monocytes Relative 7.0 % LAB HEMETOLOGY METHOD 07/08/2024 11:51 AM [facility] Eosinophils Relative 0.2 % LAB HEMETOLOGY METHOD 07/08/2024 11:51 AM [facility] Basophils Relative 0.2 % LAB HEMETOLOGY METHOD 07/08/2024 11:51 AM [facility] Immature Granulocytes Relative 0.7 % LAB HEMETOLOGY METHOD 07/08/2024 11:51 AM [facility] Neutrophils Absolute 16.86(H) 1.50 - 7.00 K/mcL LAB HEMETOLOGY METHOD 07/08/2024 11:51 AM EST [facility] Lymphocytes Absolute 0.46(L) 1.00 - 5.00 K/mcL LAB HEMETOLOGY METHOD 07/08/2024 11:51 AM [facility] Monocytes Absolute 1.32(H) 0.20 - 1.00 K/mcL LAB HEMETOLOGY METHOD 07/08/2024 11:51 AM EST [facility] Eosinophils Absolute 0.04 0.00 - 0.50 K/[facility] LAB HEMETOLOGY METHOD 07/08/2024 11:51 AM EST [facility] Basophils Absolute 0.04 0.00 - 0.20 K/mcL LAB HEMETOLOGY METHOD 07/08/2024 11:51 AM [facility] Immature Granulocytes Absolute 0.13(H) 0.00 - 0.03 K/mcL LAB HEMETOLOGY METHOD 07/08/2024 11:51 AM EST [facility] Blood Venous blood specimen / Unknown Venipuncture / Unknown 07/08/2024 11:10 AM EST 07/08/2024 11:42 AM EST Jj Wolfe MD LAB BLOOD ORDERABLES [place] l Result [facility] [address] [place] [address], * B-type natriuretic peptide (07/08/2024 11:10 AM EST) BNP 86 <=100 pcg/mL LAB CHEMISTRY METHOD 07/08/2024 12:26 PM EST [facility] Blood Venous blood specimen / Unknown Venipuncture / Unknown 07/08/2024 11:10 AM EST 07/08/2024 11:42 AM EST Jj Wolfe MD LAB BLOOD ORDERABLES [place] l Result [facility] [address] [place] [address], [place] [phone] * Magnesium (07/08/2024 11:10 AM EST) Magnesium 2.1 1.9 - 2.6 mg/dL LAB CHEMISTRY METHOD 07/08/2024 12:54 PM EST [facility] Comment:Hemolysis present Blood Venous blood specimen / Unknown Venipuncture / Unknown 07/08/2024 11:10 AM EST 07/08/2024 11:42 AM EST Jj Wolfe MD LAB BLOOD ORDERABLES [place] l Result Performing Organization Address City/[facility]/ZIP Co de Phone Number [facility] [address] [place] [address], [place] [phone] * (ABNORMAL) Lipase (07/08/2024 11:10 AM EST) Pathologist [facility] Lipase <10(L) 13 - 75 unit/L LAB CHEMISTRY METHOD 07/08/2024 12:54 PM EST [facility] Blood Venous blood specimen / Unknown Venipuncture / Unknown 07/08/2024 11:10 AM EST 07/08/2024 11:42 AM EST Jj Wolfe MD LAB BLOOD ORDERABLES [place] l Result [facility] [address] [place] [address], [place] [phone] * (ABNORMAL) Comprehensive metabolic panel (07/08/2024 11:10 AM EST) Sodium 126(L) 133 - 145 mmol/L LAB CHEMISTRY METHOD 07/08/2024 12:54 PM EST [facility] Potassium 4.2 3.5 - 5.5 mmol/L LAB CHEMISTRY METHOD 07/08/2024 12:54 PM [facility] Comment:Hemolysis present Chloride 93(L) 96 - 110 mmol/L LAB CHEMISTRY METHOD 07/08/2024 12:54 PM [facility] CO2 21 21 - 32 mmol/L LAB CHEMISTRY METHOD 07/08/2024 12:54 PM [facility] Anion Gap 12(H) 3 - 11 LAB CHEMISTRY METHOD 07/08/2024 12:54 PM [facility] Glucose 265(H) 70 - 100 mg/dL LAB CHEMISTRY METHOD 07/08/2024 12:54 PM [facility] BUN 59(H) 5 - 25 mg/dL LAB CHEMISTRY METHOD 07/08/2024 12:54 PM [facility] Comment:Results verified by repeat testing Creatinine 4.10(H) 0.50 - 1.10 mg/dL LAB CHEMISTRY METHOD 07/08/2024 12:54 PM [facility] Comment:Results verified by repeat testing eGFR 10(L) >=60 mL/min/1. 73m2 LAB CHEMISTRY METHOD 07/08/2024 12:54 PM [facility] Comment:Calculation based on the??Chronic Kidney Disease Epidemiology Collaboration (CKD-EPI) equation refit??without adjustment for race. BUN/Creatinine Ratio 14.4 LAB CHEMISTRY METHOD 07/08/2024 12:54 PM [facility] Calcium 10.6(H) 8.5 - 10.5 mg/dL LAB CHEMISTRY METHOD 07/08/2024 12:54 PM [facility] AST (SGOT) 57(H) 10 - 42 unit/L LAB CHEMISTRY METHOD 07/08/2024 12:54 PM [facility] Comment:Hemolysis present ALT (SGPT) 39 10 - 60 unit/L LAB CHEMISTRY METHOD 07/08/2024 12:54 PM [facility] Alkaline Phosphatase 149(H) 42 - 121 unit/L LAB CHEMISTRY METHOD 07/08/2024 12:54 PM EST [facility] Total Protein 6.3 6.0 - 8.0 g/dL LAB CHEMISTRY METHOD 07/08/2024 12:54 PM EST [facility] Albumin 2.1(L) 3.2 - 5.0 g/dL LAB CHEMISTRY METHOD 07/08/2024 12:54 PM EST [facility] Total Bilirubin 0.4 0.0 - 1.4 mg/dL LAB CHEMISTRY METHOD 07/08/2024 12:54 PM EST [facility] Blood Venous blood specimen / Unknown Venipuncture / Unknown 07/08/2024 11:10 AM EST 07/08/2024 11:42 AM EST Jj Wolfe MD LAB BLOOD ORDERABLES [place] l Result Performing Organization Address City/State/[facility] Co de Phone Number [facility] [address] [place] [address], [place] [phone] * (ABNORMAL) Troponin I high sensitivity (07/08/2024 11:10 AM EST) Pathologist [facility] High Sensitivity Troponin I 80(H) <=54 ng/L LAB CHEMISTRY METHOD 07/08/2024 12:20 PM EST [facility] Blood Venous blood specimen / Unknown Venipuncture / Unknown 07/08/2024 11:10 AM EST 07/08/2024 11:42 AM EST Narrative [facility] - 07/08/2024 12:20 PM EST High levels of biotin in samples may falsely decrease hsTroponin values. ??Use caution when interpreting hsTroponin results in patients taking biotin who exhibit renal impairment (eGFR <60) or in patients taking more than 20 mg/day of biotin. Jj Wolfe MD LAB BLOOD ORDERABLES [place] l Result Performing Organization Address City/[facility]/ZIP Co de Phone Number [facility] [address] [place] [address], * ECG 12 lead (07/08/2024 10:46 AM EST) Ventricular Rate ECG 94 BPM GEMUSE Atrial Rate 94 BPM GEMUSE P-R Interval 196 ms GEMUSE QRS Duration 118 ms GEMUSE Q-T Interval 354 ms GEMUSE QTc 442 ms GEMUSE P Wave [place] 79 degrees GEMUSE R [place] 15 degrees GEMUSE T [place] 4 degrees GEMUSE ECG Interpretation Sinus rhythm [...] ECG ORDERABLES Final Result Performing Organization Address City/[facility] Co de Phone Number GEMUSE * ECG-Outside (07/08/2024) Provider Onbase MD [...] 25 mg 25 mg, intravenous, Once, On Soco 07/28/24 at 1400, For 1 dose, Give slow [...] available)1424 (AUG Unhold - Provider: Automatic Transfer Provider)2125 (Not [...] available)142 (AUG Unhold - Provider: Automatic Transfer Provider)2124 [...] Jolene Cardona RN)2109 (Given - Provider: María Hawk, ILIR) 0829 (Not Given - Provider: Jacquelin Davidson RN - Reason: Patient not available)1145 (AUG Hold - Provider: Automatic Transfer Provider - Reason: Patient not available)1424 ([facility] Unhold - Provider: Automatic [...] Davidson RN - Reason: Patient not available)1145 ([facility] Hold - Provider: Automatic Transfer Provider - Reason: Patient not available)1424 (AUG Unhold - Provider: Automatic Transfer Provider)212 (Given - Provider: Katina Machuca, RN) 09 (Given - Provider: Jacquelin Davidson, ILIR) sulfamethoxazole-trimet hoprim (BACTRIM DS,SEPTRA DS) 800-160 mg per tablet 160 mg 160 mg, oral, 3 times weekly (Once per day on Thursday), First dose on Thu07/22/24 at 0900, For 20 days, Indication: Prophylaxis-Medical 0829 (Not Given - Provider: Jacquelin Davidson RN - Reason: Patient not available)114 (AUG Hold - Provider: Automatic Transfer Provider - Reason: Patient not available)142 (AUG Unhold - Provider: Automatic Transfer Provider) thiamine (VITAMIN B-1) tablet 100 mg 100 mg, oral, Daily, First dose on Thu07/18/24 at 1700 0853 (Given - Provider: Jolene Cardona, ILIR) 08 (Not Given - Provider: Jacquelin Davidson RN - Reason: Patient not available)114 (AUG Hold - Provider: Automatic Transfer Provider - Reason: Patient not available)142 (AUG Unhold - Provider: Automatic Transfer Provider) 09 (Given - Provider: Jacquelin Davidson RN) PRN [...] available)142 (AUG Unhold - Provider: Automatic Transfer Provider)2124 (Given - Provider: Katina Machuca, ILIR) acetaminophen (TYLENOL) tablet 650 mg 650 mg, oral, Once as needed, mild pain, headaches, fever - temperature GREATER than 38 C (100.4 F), Starting on Thu07/28/24 at 1140, For 1 dose 1145 (AUG Hold - Provider: Automatic Transfer Provider - Reason: Patient not available)142 (AUG Unhold - Provider: Automatic Transfer Provider)2140 (Not Given - Provider: Katina Machuca RN - Reason: Other - Comment: charted on q6 prn) albuterol 2.5 mg /3 mL (0.083 %) nebulizer solution 2.5 mg 2.5 mg, nebulization, Every 10 min PRN, shortness of breath, Starting on Thu07/28/24 at 1140, For 2 doses, -May repeat once if symptoms unresolved -Administer with 8L of oxygen 1145 ([facility] Hold - Provider: Automatic Transfer Provider - Reason: Patient not available)1424 ([facility] Unhold - Provider: Automatic Transfer Provider) benzonatate (TESSALON) capsule 100 mg 100 mg, oral, 3 times daily PRN, cough, Starting on Thu07/15/24 at 0957, Cough Do not crush or chew., Indications: cough 1145 ([facility] Hold - Provider: Automatic Transfer Provider - Reason: Patient not available)142 ([facility] Unhold - Provider: Automatic Transfer Provider) dextrose (D50W) 50% injection 12.5 g 12.5 g, intravenous, Every 15 min PRN, low blood sugar, moderate hypoglycemia *Patient is Unconscious, NPO, unable to swallow: BG 54 - 69 mg/dl*, Starting on Thu07/08/24 at 1649 1145 ([facility] Hold - Provider: Automatic Transfer Provider - Reason: Patient not available)142 ([facility] Unhold - Provider: Automatic Transfer Provider) dextrose (D50W) 50% injection 25 g 25 g, intravenous, Every 15 min PRN, low blood sugar, severe hypoglycemia *Patient is Unconscious, NPO, unable to swallow: BG LESS than 54 mg/dL*, Starting on Thu07/08/24 at 1649 1145 ([facility] Hold - Provider: Automatic Transfer Provider - Reason: Patient not available)142 ([facility] Unhold - Provider: Automatic Transfer Provider) dextrose 15 gram/60 mL oral solution 15 g 15 g, oral, Every 15 min PRN, low blood sugar, hypoglycemia *Patient conscious AND able to drink and swallow safely*, Starting on Thu07/08/24 at 1649 1145 ([facility] Hold - Provider: Automatic Transfer Provider - Reason: Patient not available)142 ([facility] Unhold - Provider: Automatic Transfer Provider) dextrose 15 gram/60 mL oral solution 30 g 30 g, oral, Every 15 min PRN, low blood sugar, hypoglycemia *Patient conscious AND able to drink and swallow safely*, Starting on Thu07/08/24 at 1649 1145 ([facility] Hold - Provider: Automatic Transfer Provider - Reason: Patient not available)1424 ([facility] Unhold - Provider: Automatic [...] years of age, or with asthma 1145 ([facility] Hold - Provider: Automatic Transfer Provider - Reason: Patient not available)1424 ([facility] Unhold - Provider: Automatic [...] years of age, or with asthma 1145 ([facility] Hold - Provider: Automatic Transfer Provider - Reason: Patient not available)1424 ([facility] Unhold - Provider: Automatic Transfer Provider) EPINEPHrine (ADRENALIN) IM Kit - adult 0.3 mg 0.3 mg, intramuscular, Every 15 min PRN, anaphylaxis, For systolic BP LESS than 90 mmHg, Starting on Soco 07/28/24 at 1140, For 3 doses, May repeat every 15 minutes as needed for a maximum of 3 doses 1145 ([facility] Hold - Provider: Automatic Transfer Provider - Reason: Patient not available)1424 ([facility] Unhold - Provider: Automatic [...] push over at least 2 minutes 1145 ([facility] Hold - Provider: Automatic Transfer Provider - Reason: Patient not available)1424 ([facility] Unhold - Provider: Automatic Transfer Provider) Glucagon HCl (rDNA) injection 1 mg 1 mg, intramuscular, Once as needed, low blood sugar, severe hypoglycemia, Starting on Thu07/08/24 at 1649, For 1 dose 1145 ([facility] Hold - Provider: Automatic Transfer Provider - Reason: Patient not available)1424 ([facility] Unhold - Provider: Automatic Transfer Provider) hydrALAZINE (APRESOLINE) injection 10 mg 10 mg, intravenous, Every 6 hours PRN, systolic BP greater than:, SBP>160, Starting on 07/09/24 at 1504 1145 ([facility] Hold - Provider: Automatic Transfer Provider - Reason: Patient not available)1424 ([facility] Unhold - Provider: Automatic [...] -Generalized rash Administer over 2 minutes 1145 ([facility] Hold - Provider: Automatic Transfer Provider - Reason: Patient not available)1424 ([facility] Unhold - Provider: Automatic Transfer Provider) HYDROmorphone (PF) injection 0.5 mg 0.5 mg, intravenous, Every 3 hours PRN, severe pain or when therapies for moderate pain were not effective, Starting on Thu07/08/24 at 1437 1145 ([facility] Hold - Provider: Automatic Transfer Provider - Reason: Patient not available)1424 ([facility] Unhold - Provider: Automatic [...] up to 10 doses (0.4 mg) 1145 ([facility] Hold - Provider: Automatic Transfer Provider - Reason: Patient not available)1424 ([facility] Unhold - Provider: Automatic [...] (Given - Provider: María Hawk, ILIR) 1145 ([facility] Hold - Provider: Automatic Transfer Provider - Reason: Patient not available)1424 ([facility] Unhold - Provider: Automatic Transfer Provider) oxyCODONE (ROXICODONE) immediate release tablet 5 mg 5 mg, oral, Every 4 hours PRN, moderate pain or when therapies for mild pain were not effective, Starting on Thu07/08/24 at 1437 1145 ([facility] Hold - Provider: Automatic Transfer Provider - Reason: Patient not available)1424 ([facility] Unhold - Provider: Automatic Transfer Provider) polyvinyl alcohol-povidone (PF) (ARTIFICIAL TEARS) 1.4-0.6 % ophthalmic solution 2 drop 2 drop, Both Eyes, Every 2 hours PRN, dry eyes, Starting on Thu07/08/24 at 1746 1122 (Given - Provider: Jolene Cardona RN)2101 (Given - Provider: María Hawk RN) 1145 ([facility] Hold - Provider: Automatic Transfer Provider - Reason: Patient not available)1424 ([facility] Unhold - Provider: Automatic Transfer Provider)2123 (Given - Provider: Katina Machuca RN) sodium chloride 0.9 % bolus 500 mL 500 mL, intravenous, at 2,000 mL/hr, Administer over 15 Minutes, Once as needed, for hypotensive management (systolic BP below 90 mmHg), Starting on Soco 07/28/24 at 1140, For 1 dose, Run wide open and await physician orders 1145 ([facility] Hold - Provider: Automatic Transfer Provider - Reason: Patient not available)1424 ([facility] Unhold - Provider: Automatic Transfer Provider) sodium chloride 0.9 % flush 10 mL(Linked Group 1) 10 mL, intravenous, As needed, line care, Starting on Thu07/08/24 at 1437 1145 ([facility] Hold - Provider: Automatic Transfer Provider - Reason: Patient not available)1424 ([facility] Unhold - Provider: Automatic Transfer Provider) sodium chloride 0.9 % flush 10 mL(Linked Group 2) 10 mL, intravenous, As needed, line care, Starting on 07/23/24 at 1617 1145 ([facility] Hold - Provider: Automatic Transfer Provider - Reason: Patient not available)1424 ([facility] Unhold - Provider: Automatic [...] each new unit of blood administered 1145 ([facility] Hold - Provider: Automatic Transfer Provider - Reason: Patient not available)1424 ([facility] Unhold - Provider: Automatic [...] each new unit of blood administered 1145 ([facility] Hold - Provider: Automatic Transfer Provider - Reason: Patient not available)1424 ([facility] Unhold - Provider: Automatic [...] each new unit of blood administered 1145 ([facility] Hold - Provider: Automatic Transfer Provider - Reason: Patient not available)1424 ([facility] Unhold - Provider: Automatic [...] each new unit of blood administered 1145 ([facility] Hold - Provider: Automatic Transfer Provider - Reason: Patient not available)1424 ([facility] Unhold - Provider: Automatic [...] documented as of this encounter Care Teams Systems Project Manager Relationship Specialty Start Date End Date Eloisa Vázquez DO [address] [place] [address] PCP - General 04/12/24 documented as of this encounter
--- OUTSIDE RECORDS SUMMARY | 2024-08-29 06:44 | XMS_ITS | Encounter Summary ---
Author Organization [facility] Address [address] [address] Phone Care Team Providers Care Cosmetic Maker Name Role Phone Eloisa Vázquez Primary Care Provider [phone] Encounter Details Date Type Department Care Team (Late st Contact Info) Description 08/08/2024 Treatment [facility] [address] [address] oBni Pierce MD [address] [address] Social History Tobacco Use Types [...] kidney injury requiring renal replacement therapy. Attending Financial Analyst Intern: BONI PIERCE MD Dialysis Location: [facility] Schedule: Shift: 1 ADDITIONAL [...] on filedocumented in this encounter Care Teams Cosmetic Maker Relationship Specialty Start Date End Date Eloisa Vázquez [address] [place] [id number] PCP - General Internal Medicine 07/11/24 documented as of this encounter
--- OUTSIDE RECORDS SUMMARY | 2024-08-29 06:45 | XMS_ITS | Encounter Summary ---
Author Organization [facility] Address [address] [place] [address] Care Team Providers Care Lease Operator Name Role Phone Eloisa Vázquez DO Primary Care Provider [phone] Reason for Referral * Imaging (Routine) - Authorized Specialty Diagnoses / Procedures Referred By Daksha godoy Referred To Contact Radiology Diagnoses Pulmonary nodule Procedures CT Chest wo Contrast Cecily Montez MD [address] [address] Phone: tel: fax: [facility] [address] [place] [address] Phone: tel: Referral ID Status Reason Start Date Expiration Date V isits Requested Visits Authorized [id number] Authorized 08/15/2024 08/15/2025 1 1 Reason for Visit * Reason Comments Post-op Visit Encounter Details Date Type Department Care Team ([facility] st Contact Info) Description 08/15/2024 1:30 PM EST Office Visit Thoracic Surgery - [place] [address] [facility] [address] [place] [id number] Cecily Montez MD 299 [facility] [address] [place] [address] Pulmonary nodule (Primary Dx); Lung mass Social [...] performed: [facility]ig[facility] bronch[facility] procedure was performed: [facility] HPI Ms. 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 Family History Problem Relation Name Age of [...] 10:00 AM EDT Office Visit Endocrinology - [place] [address] [place] [address] Kathy Michelle PA [address] [place] [address] 09/06/2024 11:00 AM EDT Ancillary Procedure [facility] [address] [facility] [address] [place] [address] 10/06/2024 1:15 PM EDT Office Visit [facility] [address] [place] [address] Eloisa Vázquez DO [address] [place] [address] 11/14/2024 11:30 AM EDT Appointment [facility] CT Scan [address] [place] [id number] 12/01/2024 10:00 AM EDT Office Visit Thoracic Surgery - [place] [address] [phone] Cecily Montez MD [address] [address] Scheduled Orders Name Type Priority Associated Diagnoses [...] documented as of this encounter Care Teams Lease Operator Relationship Specialty Start Date End Date Eloisa Vázquez DO [address] [place] [address] PCP - General 04/12/24 documented as of this encounter
--- OUTSIDE RECORDS SUMMARY | 2024-08-29 06:45 | XMS_ITS | Encounter Summary ---
Author Organization [facility] Address [address] [place] [address] Care Team Providers Care Chemical Lab Supervisor Name Role Phone Marie Vázquezmankamryn CHERY Primary Care Provider [phone] Encounter Details Date Type Department Care Team (Late st Contact Info) Description 04/12/2024 1:41 PM EDT Hospital Encounter TH HISTORIC ENCOUNTERS EASTERN CONVERSION ONLY Jaime Grimaldo MD [address] [place] [address] Social History Tobacco Use Types Packs/Day Years [...] summerof this year while she was in [place] developed some respiratory infection/COVID, patient also have [...] issues, was seen by a physician in [place] (in urgent care clinic), CT scan of [...] 10:00 AM EDT Office Visit Endocrinology - [place] [address] [place] [address] Kathy Michelle PA [address] [place] [address] 09/06/2024 11:00 AM EDT Ancillary Procedure [facility] - [address] [place] [address] 10/06/2024 1:15 PM EDT Office Visit Internal Medicine - [place] [address] [place] [address] Marie Vázquezmana, [address] [place] [address] 11/14/2024 11:30 AM EDT Appointment [facility] CT Scan [address] [place] [address] 12/01/2024 10:00 AM EDT Office Visit Thoracic Surgery - [place] [address] [facility] [address] [place] [address] Cecily Montez MD [address] [facility] [address] [place] [address] documented as of this encounter Procedures Procedure [...] documented as of this encounter Care Teams Chemical Lab Supervisor Relationship Specialty Start Date End Date Marie VázquezmanDO kamryn [address] [place] [address] PCP - General 04/12/24 documented as of this encounter
--- OUTSIDE RECORDS SUMMARY | 2024-08-29 06:45 | XMS_ITS | Encounter Summary ---
Author Organization [facility] Address [address] [place] [address] Care Team Providers Care Shipping/Receiving Manager Name Role Phone Marie Vázquezmankamryn CHERY Primary Care Provider [phone] Reason for Visit * Reason Onset Date Comments provider call back 08/09/2024 Encounter Details Date Type Department Care Team (Late st Contact Info) Description 08/09/2024 Telephone Nephrology - [place] [address] [place] [phone] Chencho Wayne MD 100 [facility] [address] [place] [address] provider call back Social History [...] was seen by Dr Wayne at the [facility]. She was discharged last Thursday. She is on dialysis 3 times a day. She needs to see Dr Tone casas. There are no available appointments. Also please review message below. Call Dennise at: [phone] * Criseldakamryn Medina - 08/09/2024 9:12 AM EST Patients daughter is calling today because her mother was in the hospital and had a transfusion called Rituximab performed and was told she would need another one done around 08/11 or 08/12 but she wants to know if she schedules that through the shelter or if your office does that. Please advise her at [phone]. Also if she needs a sooner follow up appointment than what she has now documented in this encounter Plan of Treatment Upcoming Encounters Date Type Department Care Team (Late st Contact Info) Description 09/05/2024 10:00 AM EDT Office Visit Endocrinology - [place] [address] [place] [address] Kathy Michelle PA [address] [place] [address] 09/06/2024 11:00 AM EDT Ancillary Procedure [facility] [address] [facility] 101 [place] [address] 10/06/2024 1:15 PM EDT [facility] [address] [place] [address] Eloisa Vázquez DO [address] [place] [address] 11/14/2024 11:30 AM EDT Appointment [facility] CT Scan [address] [place] [phone] 12/01/2024 10:00 AM EDT Office Visit Thoracic Surgery - [place] [address] [phone] Cecily Montez MD [address] [address] documented as of this encounter Visit Diagnoses Not on filedocumented in this encounter Additional Health Concerns Infection Onset Date Last Indicated Resolved Time Tuberculosis Rule-Out 08/05/2024 08/05/2024 documented as of this encounter Care Teams Shipping/Receiving Manager Relationship Specialty Start Date End Date Eloisa Vázquez DO [address] [facility] [place] [address] PCP - General 04/12/24 documented as of this encounter
--- OUTSIDE RECORDS SUMMARY | 2024-08-29 06:45 | XMS_ITS | Encounter Summary ---
Author Organization [facility] Address [address] [place] [address] Care Team Providers Care Animal Trainer Supervisor Name Role Phone Marie Vázquezmankamryn CHERY Primary Care Provider [phone] Encounter Details Date Type Department Care Team (Late st Contact Info) Description 08/11/2024 Telephone [facility] [address] [place] [address] 2nd [place] [address] Nalini Clark RN Social History [...] 10:00 AM EDT Office Visit Endocrinology - [place] [address] [place] [address] Kathy Michelle PA [address] [place] [address] 09/06/2024 11:00 AM EDT Ancillary Procedure [facility] - [facility] [address] 300 [facility] 101 [place] [address] 10/06/2024 1:15 PM EDT [facility] [address] [place] [address] Eloisa Vázquez DO 305 [place] [address] 11/14/2024 11:30 AM EDT Appointment [facility] CT Scan [address] [place] [address] 12/01/2024 10:00 AM EDT Office Visit Thoracic Surgery - [place] 299 [facility] [address] [place] [address] Cecily Montez MD 299 [facility] 410 [place] [address] documented as of this encounter Visit Diagnoses Not on filedocumented in this encounter Additional Health Concerns Infection Onset Date Last Indicated Resolved Time Tuberculosis Rule-Out 08/05/2024 08/05/2024 documented as of this encounter Care Teams Animal Trainer Supervisor Relationship Specialty Start Date End Date Eloisa Vázquez DO 305 [facility] [place] [address] PCP - General 04/12/24 documented as of this encounter
--- OUTSIDE RECORDS SUMMARY | 2024-08-29 06:45 | XMS_ITS | Encounter Summary ---
Author Organization [facility] Address [address] [place] [address] Care Team Providers Care Furniture Stainer Name Role Phone Eloisa Vázquez DO Primary Care Provider [phone] Reason for Visit * Reason Comments Follow-up Encounter Details Date Type Department Care Team (Late st Contact Info) Description 08/10/2024 10:00 AM EST Office Visit [facility] Hematology Oncology [address] [place] [phone] Jaime Grimaldo MD [address] [place] [address] Lung mass (Primary Dx); Normocytic anemia; Chronic [...] 15-29 ml/min ([facility]) Iron deficiency anemia Impaired renal function Type 2 diabetes mellitus without complication, without long-term current use of insulin (CMS/[facility]) Lung mass Pulmonary nodule Past Medical History: [...] Relation Name Status Father at age 54 [place] Mother at age 93 Osteoporosis, HTN, Arthritis Daughter Alive Healthy Son Alive Healthy Son Alive Healthy Brother at age 62 Brain tumor; lymphoma Brother at age 64 COPD Brother Alive COPD Brother [place] Sister Alive Healthy Sister Alive Healthy Sister [...] to me PLAN: Continue close follow-up with embedded firmware developer Patient will be seeing Dr. Navarro Patient will return to office if there is any malignancy diagnosed in her lung Jaime Grimaldo MD documented in this encounter Plan of Treatment Upcoming Encounters Date Type Department Care Team (Late st Contact Info) Description 09/05/2024 10:00 AM EDT Office Visit Endocrinology - [place] [address] [place] [address] Kathy Michelle PA [address] [place] [address] 09/06/2024 11:00 AM EDT Ancillary Procedure [facility] - [address] [place] [address] 10/06/2024 1:15 PM EDT Office Visit Internal Medicine - [place] [address] [place] [address] Eloisa Vázquez DO [address] [place] [address] 11/14/2024 11:30 AM EDT Appointment [facility] CT Scan [address] [place] [phone] 12/01/2024 10:00 AM EDT Office Visit Thoracic Surgery - [place] [address] [phone] Cecily Montez MD [address] [address] documented as of this encounter Visit Diagnoses [...] documented as of this encounter Care Teams Furniture Stainer Relationship Specialty Start Date End Date Eloisa Vázquez DO [address] [place] [address] PCP - General 04/12/24 documented as of this encounter
--- OUTSIDE RECORDS SUMMARY | 2024-08-29 06:45 | XMS_ITS | Clinical Summary ---
Author Organization [facility] Address [address] [address] Phone Care Team Providers Care Knitter Mechanic Name Role Phone Eloisa Vázquez Primary Care Provider [phone] Encounters Date Type Department Care Team Description 08/26/2024 Treatment [facility] [address] [phone] Anthony Norton MD 08/23/2024 Treatment [facility] [address] [phone] Tony Golden MD 08/17/2024 Treatment [facility] [address] [phone] Anthony Norton MD 08/11/2024 Orders Only [facility] [address] [phone] Anthony Norton MD ANCA associated vasculitis (HCC); 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) 08/08/2024 Treatment [facility] [address] [phone] Anthony Norton MD 08/08/2024 Office Communication [facility] [address] [address] Anthony Norton MD ANCA associated vasculitis (HCC) (Primary Dx); 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) 07/28/2024 Telephone [facility] [address] [facility] 204 [place] [address] Maggy Mcgarry from Last 3 Months [...] Date/Time Associated Diagnosis Comments LIH (HC) Routine 08/26/2024 3:00 AM EST GLUCOSE, RANDOM Routine 08/26/2024 3:00 AM EST BASIC METABOLIC PANEL BUNDLED (HC) Routine 08/26/2024 3:00 AM EST HEMOGLOBIN Routine 08/26/2024 3:00 AM EST LIH (HC) Routine 08/17/2024 3:00 AM EST GLUCOSE, RANDOM Routine 08/17/2024 3:00 AM EST BASIC METABOLIC PANEL BUNDLED (HC) Routine 08/17/2024 3:00 AM EST HEMOGLOBIN AND HEMATOCRIT, BLOOD Routine 08/17/2024 3:00 AM EST CREATININE CLEARANCE, URINE, 24 HOUR Routine 08/17/2024 3:00 AM EST LIH (HC) Routine 08/10/2024 [...] Results * (ABNORMAL) Basic Metabolic Panel Bundled (08/26/2024 3:00 AM EST) Only the most recent of3 resultswithin the time period is included. Sodium 137 136 - 145 mEq/L [facility] Potassium 3.1(L) 3.4 - 5.0 mEq/L [facility] Chloride 103 98 - 107 mEq/L [facility] Bicarbonate (CO2) 24 21 - 31 mEq/L [facility] Anion Gap 10 3 - 14 mEq/L [facility] BUN 50(H) 7 - 25 mg/dL [facility] Calcium 7.9(L) 8.6 - 10.3 mg/dL [facility] Creatinine 3.39(H) 0.55 - 1.02 mg/dL [facility] 08/26/2024 3:00 AM EST 08/27/2024 1:32 PM EST Anthony Norton MD LAB [id number] SOLICITED RESULTS Final Result Performing Organization Address [facility] de Phone Number [facility]PS [facility] [address] [place] [address] * LIH (08/26/2024 3:00 AM EST) Only the most recent of4 resultswithin the time period is included. Lipemia Normal Normal [facility] Icterus Normal Normal [facility] Hemolysis Normal Normal [facility] 08/26/2024 3:00 AM EST 08/27/2024 1:32 PM EST Anthony Norton MD LAB [id number] SOLICITED RESULTS Final Result Performing Organization Address [facility] de Phone Number [facility] [address] [place] [address] * (ABNORMAL) Hemoglobin (08/26/2024 3:00 AM EST) Hgb 8.3(L) 11.2 - 15.7 g/dL [facility] Hemoglobin x 3 24.9(L) 33.6 - 47.1 g/dL [facility] 08/26/2024 3:00 AM EST 08/27/2024 1:29 PM EST Anthony Norton MD LAB BLOOD ORDERABLES Final Re sult Performing Organization Address [facility] de Phone Number [facility] [address] [place] [address] * Glucose, random (08/26/2024 3:00 AM EST) Only the most recent of4 resultswithin the time period is included. Glucose 108 74 - 109 mg/dL [facility] 08/26/2024 3:00 AM EST 08/27/2024 1:32 PM EST Anthony Norton MD LAB BLOOD ORDERABLES Final Re sult Performing Organization Address [facility] de Phone Number [facility] [address] [place] [address] * (ABNORMAL) Creatinine clearance, urine, 24 hour [...] ORDERABLES Final Re sult Performing Organization Address [facility] de Phone Number [facility] [address] [place] [address] * (ABNORMAL) Hemoglobin and hematocrit (08/17/2024 3:00 AM EST) Hgb 8.0(L) 11.2 - 15.7 g/dL [facility] Hematocrit 25.9(L) 34.1 - 44.9 % [facility] Hemoglobin x 3 24.0(L) 33.6 - 47.1 g/dL [facility] 08/17/2024 3:00 AM EST 08/19/2024 12:34 PM EST Anthony Norton MD LAB BLOOD ORDERABLES Final Re sult Performing Organization Address [facility] de Phone Number [facility] [address] [place] [address] * Confirmation Test HCV (08/08/2024 3:00 AM EST) Hep C Ab Confirmation Not needed [facility] 08/08/2024 3:00 AM EST 08/09/2024 1:15 PM EST Anthony Norton MD LAB BLOOD ORDERABLES Final Re sult Performing Organization Address [facility] de Phone Number [facility] [address] [place] [address] * (ABNORMAL) Kt/V Natural Log, URR (08/08/2024 3:00 AM EST) Pathologist [facility] Treatment Time 185 min [facility] Pre-Weight, lb [...] 1:17 PM EST Anthony Norton MD LAB [id number] SOLICITED RESULTS Final Result Performing Organization Address [facility] de Phone Number [facility] [address] [place] [address] * (ABNORMAL) Calcium Phosphorus Product, Adjusted (08/08/2024 3:00 AM EST) Pathologist [facility] Albumin 3.2(L) 3.6 - 5.4 g/dL [facility] Calcium 8.8 8.6 - 10.3 mg/dL [facility] Phosphorus, Serum 4.4 2.5 - 5.0 mg/dL [facility] Ca*PO4 38.7 <55.0 mg2/dL2 [facility] Calcium, Adjusted Total 9.4 8.6 - 10.3 mg/dL [facility] CA*PO4 CORRCTD 41.4 <55.0 mg2/dL2 [facility] 08/08/2024 3:00 AM EST 08/09/2024 1:17 PM EST Anthony Norton MD LAB [id number] SOLICITED RESULTS Final Result Performing Organization Address [facility] de Phone Number [facility] [address] [place] [address] * HEPATITIS C ABS W/REFLEX RNA DETECTR (08/08/2024 3:00 AM EST) Pathologist [facility] Hep C Virus Ab Non-Reacti ve Non-Reacti ve [facility] 08/08/2024 3:00 AM EST 08/09/2024 1:17 PM EST Anthony Norton MD LAB [id number] SOLICITED RESULTS Final Result Performing Organization Address [facility] de Phone Number [facility] [address] [place] [address] * Hepatitis B Surface Ag w/Reflex Confirmation (08/08/2024 3:00 AM EST) Pathologist [facility] Hep B Surface Antigen Negative Negative [facility] 08/08/2024 3:00 AM EST 08/09/2024 1:17 PM EST Anthony Norton MD LAB BLOOD ORDERABLES Final Re sult Performing Organization Address [facility] de Phone Number [facility] [address] [place] [address] * (ABNORMAL) TSAT (08/08/2024 3:00 AM EST) Pathologist [facility] Iron 34(L) 50 - 170 ug/dL [facility] Transferrin 126(L) 250 - 380 mg/dL [facility] TIBC 176(L) 211 - 406 ug/dL [facility] Iron Saturation (TSat) 19(L) 22 - 52 % [facility] 08/08/2024 3:00 AM EST 08/09/2024 1:17 PM EST Anthony Norton MD LAB BLOOD ORDERABLES Final Re sult Performing Organization Address [facility] de Phone Number [facility] [address] [place] [address] * Hepatitis B Core Antibody, Total (08/08/2024 3:00 AM EST) HBc Total Ab, S Negative Negative [facility] 08/08/2024 3:00 AM EST 08/09/2024 1:17 PM EST Anthony Norton MD LAB BLOOD ORDERABLES Final Re sult Performing Organization Address [facility] de Phone Number [facility] [address] [place] [address] * Aluminum level (08/08/2024 3:00 AM EST) Aluminum 4 1 - 20 ug/L [facility] 08/08/2024 3:00 AM EST 08/09/2024 1:21 PM EST Anthony Norton MD LAB BLOOD ORDERABLES Final Re sult Performing Organization Address [facility] de Phone Number [facility] [address] [place] [address] * Vitamin D 25 Hydroxy (08/08/2024 3:00 AM EST) Vitamin D, 25-Hydroxy 38 30 - 100 ng/mL [facility] Comment: Status ? Adult ?? Pediatric Deficient: ? <20 ? <15 Insufficient: ??20-29 ?? 15-19 Sufficient: ?30-100 ??20-100 08/08/2024 3:00 AM EST 08/09/2024 1:17 PM EST Anthony Norton MD LAB BLOOD ORDERABLES Final Re sult Performing Organization Address City[facility]/ZIP Co de Phone Number [facility] [address] [place] [address] * (ABNORMAL) Hepatitis B Surface Antibody (08/08/2024 3:00 AM EST) [facility] Hep B Surface Antibody <4(A) mIU/mL [facility] Comment: Interpretation: <10: No Immunity >=10: Probable Immunity 08/08/2024 3:00 AM EST 08/09/2024 1:17 PM EST Anthony Norton MD LAB BLOOD ORDERABLES Final Re sult Performing Organization Address [facility] de Phone Number [facility] [address] [place] [address] * (ABNORMAL) CBC and Differential (08/08/2024 3:00 AM EST) [facility] DIFFERENTIAL MANUAL, 2 Not Indicated [facility] [...] Re sult Performing Organization Address [facility] de Phone Number [facility] [address] [place] [address] * Uric Acid (08/08/2024 3:00 AM EST) Uric Acid 5.0 2.3 - 6.6 mg/dL [facility] 08/08/2024 3:00 AM EST 08/09/2024 1:17 PM EST us Anthony Norton MD LAB BLOOD ORDERABLES Final Re sult Performing Organization Address [facility] Phone Number [facility] [address] [place] [address] * (ABNORMAL) ALT (08/08/2024 3:00 AM EST) ALT (SGPT) 8(L) 10 - 49 U/L [facility] 08/08/2024 3:00 AM EST 08/09/2024 1:17 PM EST Anthony Norton MD LAB BLOOD ORDERABLES Final Re sult Performing Organization Address [facility] de Phone Number [facility] [address] [place] [address] * AST (08/08/2024 3:00 AM EST) AST (SGOT) 11 <34 U/L [facility] 08/08/2024 3:00 AM EST 08/09/2024 1:17 PM EST us Anthony Norton MD LAB BLOOD ORDERABLES Final Re sult Performing Organization Address [facility] de Phone Number [facility] [address] [place] [address] * (ABNORMAL) Protein, total (08/08/2024 3:00 AM EST) Pathologist [facility] Total Protein 5.7(L) 6.4 - 8.9 g/dL [facility] 08/08/2024 3:00 AM EST 08/09/2024 1:17 PM EST Anthony Norton MD LAB BLOOD ORDERABLES Final Re sult Performing Organization Address [facility] de Phone Number [facility] [address] [place] [address] * Alkaline phosphatase (08/08/2024 3:00 AM EST) Pathologist [facility] Alkaline Phosphatase 76 46 - 116 U/L [facility] 08/08/2024 3:00 AM EST 08/09/2024 1:17 PM EST Anthony Norton MD LAB BLOOD ORDERABLES Final Re sult Performing Organization Address [facility] de Phone Number [facility] [address] [place] [address] * (ABNORMAL) PTH, Intact (08/08/2024 3:00 AM EST) Pathologist [facility] PTH, Intact 144(L) 160 - 721 pg/mL [facility] Comment: Suggested (KDIGO) ESRD maintenance range is two to nine times the upper normal limit (80.1 pg/mL) for the laboratory. 08/08/2024 3:00 AM EST 08/09/2024 1:17 PM EST us Anthony Norton MD LAB BLOOD ORDERABLES Final Re sult Performing Organization Address [facility] de Phone Number [facility] [address] [place] [address] * Magnesium (08/08/2024 3:00 AM EST) Pathologist [facility] Magnesium 1.9 1.9 - 2.7 mg/dL [facility] 08/08/2024 3:00 AM EST 08/09/2024 1:17 PM EST Anthony Norton MD LAB BLOOD ORDERABLES Final Re sult Performing Organization Address [facility] de Phone Number [facility] [address] [place] [address] * Lactate dehydrogenase (08/08/2024 3:00 AM EST) LDH 198 120 - 246 U/L [facility] 08/08/2024 3:00 AM EST 08/09/2024 1:17 PM EST Anthony Norton MD LAB BLOOD ORDERABLES Final Re sult Performing Organization Address [facility] de Phone Number [facility] [address] [place] [address] * (ABNORMAL) Hemoglobin A1c (08/08/2024 3:00 AM [...] Final Re sult Performing Organization Address [facility] de Phone Number [facility] [address] [place] [address] * (ABNORMAL) Ferritin (08/08/2024 3:00 AM EST) Ferritin 1,209(H) 10 - 291 ng/mL [facility] 08/08/2024 3:00 AM EST 08/09/2024 1:17 PM EST Anthony Norton MD LAB BLOOD ORDERABLES Final Re sult Performing Organization Address [facility] de Phone Number [facility] [address] [place] [address] * (ABNORMAL) Creatinine, serum (08/08/2024 3:00 AM EST) Creatinine 4.24(H) 0.55 - 1.02 mg/dL [facility] 08/08/2024 3:00 AM EST 08/09/2024 1:17 PM EST Anthony Norton MD LAB BLOOD ORDERABLES Final Re sult Performing Organization Address [facility] de Phone Number [facility] [address] [place] [address] * Bilirubin, total (08/08/2024 3:00 AM EST) Total Bilirubin 0.3 0.3 - 1.2 mg/dL [facility] 08/08/2024 3:00 AM EST 08/09/2024 1:17 PM EST Anthony Norton MD LAB BLOOD ORDERABLES Final Re sult Performing Organization Address [facility] Phone Number [facility] [address] [place] [address] * (ABNORMAL) Lipid panel (08/08/2024 3:00 AM [...] Re sult Performing Organization Address [facility] de Phone Number [facility] [address] [place] [address] * Electrolyte panel (08/08/2024 3:00 AM EST) [...] Re sult Performing Organization Address [facility] de Phone Number [facility] [address] [place] [address] from Last 3 Months Insurance [facility] MEDICARE Care Teams Knitter Mechanic Relationship Specialty Start Date End Date Eloisa Vázquez [address] [place] [id number] PCP - General Internal Medicine 07/11/24
--- OUTSIDE RECORDS SUMMARY | 2024-08-29 06:45 | XMS_ITS | Clinical Summary ---
Author Organization [facility] Address [address] [place] [address] Care Team Providers Care Aircraft Instrument Tester Name Role Phone Eloisa Vázquez DO Primary Care Provider [phone] Allergies No known active allergies Medications cetirizine [...] times a week for 16 doses. 08/08/19 Active polyethylene glycol (MIRALAX) 17 gram packet Take 17 g by mouth 1 (one) time each day if needed for constipation. 08/05/19 Active pantoprazole (PROTONIX) 40 mg EC tablet [...] AFTERNOON (WITH MEALS) 300 tablet 1 08/12/19 Active carvediloL (COREG) 3.125 mg tablet Take by mouth 2 (two) times a day with meals. Active CALCIUM CARBONATE ORAL Calcium 600mg Take [...] THE AFTERNOON (WITH MEALS) 270 tablet 06/17/20 24 025 Discontinued Active Problems Patient Care Coordination No te Formatting of this note eliseo godoy be different from the original. Barriers: Renal Bx 07/22 w/ path pending, new HD, trend labs, H/H, heparin drip- LLE DVT, repeat Pt eval, lung mass biopsy 07/27 Plan: 1st choice - [facility]t onsite HD. [facility] accepting w family to provide HD [...] and how their size, shape, and change attendant time affect her level of suspicion for [...] weeks. She will need to see her planograph operator prior to procedure. Hypertension 06/01/2024 Hyperlipidemia 06/01/2024 History of cancer of unknown primary site 2023 CKD (chronic kidney disease) stage 4, GFR 15-29 ml/min 06/01/2024 Iron deficiency anemia 06/01/2024 Assessment & Plan (08/23/2024 4:46 PM EST): Patient and her daughter decline GI workup for iron deficiency anemia. See H&P Impaired renal function 06/01/2024 Type 2 diabetes mellitus wit hout complication, without long-term current use of insulin 06/01/2024 Resolved Problems Problem Noted Date Diagnosed Date Resolved Date Acute encephalopathy 07/08/2024 025 Encounters Date Type Department Care Team Description 08/23/2024 3:00 PM EST Office Visit Gastroenterology - [address] [place] [address] [address] [place] [phone] Josiane Smith, JUNITO Iron deficiency anemia, unspecified iron deficiency anemia type; History of cancer of unknown primary site 08/22/2024 8:30 AM EST - 08/22/2024 11:59 PM EST Hospital Encounter [facility] [address] [place] [phone] Chencho Wayne MD Crescentic glomerulonephritis (Primary Dx); Cresentic glomerulonephritis of transplanted kidney Discharge Disposition: Home or Self Care 08/22/2024 Social Work [address] [phone] Haley Andrews LMSW 08/15/2024 1:30 PM EST Office Visit Thoracic Surgery - [facility] [address] [place] [address] Cecily Montez MD Pulmonary nodule (Primary Dx); Lung mass 08/11/2024 Telephone [facility] [address] [place] [phone] Nalini Clark RN 08/10/2024 10:00 AM EST Office Visit [facility] Hematology Oncology [address] [place] [phone] Jaime Grimaldo MD Lung mass (Primary Dx); Normocytic anemia; Chronic renal failure, stage 5 (CMS/HCC) 08/09/2024 Telephone Nephrology - [address] [phone] Chencho Wayne MD provider call back 08/05/2024 11:46 AM EST Anesthesia Event [facility] Main OR [address] [place] [phone] Monroe Kim MD 08/05/2024 11:30 AM EST - 08/05/2024 1:30 PM EST Surgery [facility] Main OR [address] [place] [phone] Cecily Montez MD Navigation bronchoscopy/EBUS [59978 (CPT??) +2 more] 08/01/2024 Telephone Internal Medicine - [facility] [address] [place] [phone] Eloisa Vázquez, Forms/questionnaires (PFML) 07/08/2024 10:31 AM EST - 08/06/2024 1:09 PM EST Hospital Encounter [facility] Urology Unit [address] [place] [phone] Jj Wolfe MD Flores, Carlos M, MD Japaridze, Anna, MD Santoyo-Pacheco, Omar D, MD Kokosadze, Estate, MD Zipagan, James T, MD Seralathan, Manikandan, MD Anemia, unspecified type (Primary Dx); Hyponatremia; Acute on chronic renal insufficiency; Acute encephalopathy; Bilateral leg edema; Pulmonary nodule Discharge Disposition: [facility] 07/05/2024 Telephone [facility] - [facility] [address] [facility] [address] [place] [address] Primo Navarro MD Pre-op Visit 06/17/2024 9:56 AM EST - 06/17/2024 11:59 PM EST Hospital [facility] CT Scan [address] [place] [phone] Lung mass; Neoplasm Discharge Disposition: Home or Self Care 06/17/2024 8:20 AM EST Office Visit [facility] - [facility] [address] [facility] [address] [place] [address] Primo Navarro MD Primary hypertension (Primary Dx); Lung mass; Preoperative cardiovascular examination; PANIAGUA (dyspnea on exertion); Leg edema 06/14/2024 Telephone Thoracic Surgery - [facility] [address] [facility] [address] [place] [address] Cecily Montez MD Procedure ([facility] , ct scan) 06/13/2024 11:00 AM EST Consult Thoracic Surgery - [facility] [address] [place] [phone] Cecily Montez MD Lung mass (Primary Dx); Neoplasm; Pulmonary nodules 06/06/2024 8:20 AM EST Office Visit Endocrinology [address] [phone] Kathy Michelle PA Type 2 diabetes mellitus without complication, without long-term current use of insulin ([facility]) (Primary Dx); CKD (chronic kidney disease) stage 4, GFR 15-29 ml/min (CMS/HCC); Primary hypertension 06/01/2024 11:15 AM EST Telemedicine Internal Medicine - [address] [phone] Eloisa Vázquez DO History of cancer of unknown primary site (Primary Dx); Impaired renal function; Type 2 diabetes mellitus without complication, without long-term current use of insulin (CMS/HCC); Hypertension, unspecified type; Hyperlipidemia, unspecified hyperlipidemia type; Iron deficiency anemia, unspecified iron deficiency anemia type 06/01/2024 Telephone Internal Medicine - [facility] [address] [place] [phone] Eloisa Vázquez DO from Last 3 Months Surgical History Surgery [...] COPD Brother 3 Alive COPD Brother 4 NE Daughter Alive Healthy Father (Age 54) NE Mother (Age 93) Osteoporos is, HTN, Arthritis [...] 10:00 AM EDT Office Visit Endocrinology - [facility] [address] [place] [phone] Kathy Michelle PA [address] [place] [address] 09/06/2024 11:00 AM EDT Ancillary Procedure [facility] - [address] [place] [phone] 10/06/2024 1:15 PM EDT Office Visit Internal Medicine - [facility] [address] [place] [phone] Eloisa Vázquez DO [address] [place] [address] 11/14/2024 11:30 AM EDT Appointment [facility] CT Scan [address] [place] [phone] 12/01/2024 10:00 AM EDT Office Visit Thoracic Surgery - [facility] [address] [facility] [address] [place] [phone] Cecily Montez MD [address] [facility] [address] [place] [address] Health Maintenance Due Date Last Done Comments [...] 02/05/2025 08/08/2024, 08/08/2024, 05/31/2024, Additional history exists Hypertension/CHF/CAD Annual BMP Blood Test 08/17/2025 08/17/2024, 08/10/2024, 08/05/2024, Additional history exists Falls Risk Assessment 08/22/2025 08/22/2024 Cholesterol Screening (Lipid Panel) 08/08/2029 08/08/2024, 05/31/2024 [...] this topic Medical Devices Implanted Type Area Clinic Clerk Device Identifier Shelf Expiration Date Model / Serial / Lot Cath Dial W/Vt Kt 14.5nx04dk Palindrome Precision - [id number] - [id number] Implanted:Qty: 1 on 07/15/2024 by Fela Palomo MD at [facility] Dialysis Catheters Left: Chest Wall [facility] [id number] 09/26/2028 [id number] 40P / [id number] / [id number] Sponge Surgifoam Gel 12 X 7mm - [id number] - [id number] Implanted:Qty: 1 on 05/23/2024 by Fela Palomo MD at [facility] Hemostasis Right: Lung [facility] [employer] [id number] 08/27/20271971 / [id number] / Sponge Surgifoam Gel 12 X 7mm - [id number] - [id number] Implanted:Qty: 1 on 07/22/2024 by Fela Palomo MD at [facility] Hemostasis Left: Kidney J [employer] [id number] 05/24/20281971 / [id number] / Procedures Procedure Name Priority Date/Time Associated Diagnosis Comments POCT GLUCOSE BLOOD Routine 08/06/2024 11 :07 AM EST POCT GLUCOSE BLOOD Routine 08/06/2024 7: 26 AM EST POCT GLUCOSE BLOOD Routine 08/05/2024 8: 08 PM EST POCT GLUCOSE BLOOD Routine 08/05/2024 4: 40 PM EST XR CHEST 1 VIEW STAT 08/05/2024 1:43 PM EST POCT GLUCOSE BLOOD Routine 08/05/2024 1 :40 PM EST ..CONCENTRATION Routine 08/05/2024 12:32 PM EST Pulmonary nodule ACID FAST BACILLI STAIN Routine 08/05/19 25 12:32 PM EST Pulmonary nodule CULTURE BRONCHIAL [...] ENDOTRACHEAL(NO CHARGE) Routine 08/05/2024 12:08 PM EST FL BRONCHOSCOPY RIGID/FLEXIBLE W/EBUS >=3 MEDIASTINAL/HILAR LYMPH NODES 08/05/2024 11:46 AM EST Pulmonary nodule FL BRONCHOSCOPY INCL FLUROSCOPIC GUIDANCE W PLCMNT FIDUCIAL MARKER SGL/MULT 08/05/2024 11:46 AM EST Pulmonary nodule FL BRONCHOSCOPY RIGID/FLEXIBLE INCL FLUORO W/THERAPY ASPIRATION INITIAL [...] AM EST POCT GLUCOSE BLOOD Routine 07/26/2024 8 :08 AM EST HEPARIN ANTI XA Routine 07/26/2024 [...] BLOOD Routine 07/11/2024 8: 17 AM EST FL IMMUNOFIXATION ELECTROPHORESIS SERUM Routine 07/11/2024 6:21 AM [...] BLOOD Routine 07/08/2024 6: 19 PM EST FL PROTEIN ELECTROPHORETIC FRACTIONATION & QUANTITATION SERUM Routine [...] complication, without long-term current use of insulin ([facility]/HCC) CKD (chronic kidney disease) stage 4, GFR 15-29 ml/min (CMS/[facility]) MICROALBUMIN CREATININE URINE RATIO Routine [...] deficiency anemia, unspecified Cataract, diabetic (CMS/HCC) Hyperlipemia [facility] DEXA AXIAL SKELETON Routine 04/15/20 10:29 AM [...] Final Result [facility] [address] [place] [address], [place] [phone] * XR Chest 1 View (08/05/2024 1:43 [...] Signed Date: 08/05/2024 13:49 ET Workstation ID: [id number] Transcribed By: Self Edit Transcribed Date: 08/05/2024 [...] Signed Date: 08/05/2024 13:49 ET Workstation ID: [id number] Transcribed By: Self Edit Transcribed Date: 08/05/2024 [...] MICROBIOLOGY - GENERAL ORDER SYLVAIN Final Result [facility] [address] [place] [address], [place] [phone] * Concentration (08/05/2024 12:32 PM EST) AFB Concentration Performed 025 3:05 PM EST [facility] Structure of upper lobe of right lung / Unknown 08/05/2024 12:32 PM EST 08/05/2024 1:17 PM EST Narrative [facility] - 08/06/2024 3:05 PM EST Performed at: ??01 - [facility] [address] ??[id number] Strap Sewer: Diane Belle MD, Phone: ??[phone] us Cecily Montez MD LAB BLOOD ORDERABLES [...] ORDER SYLVAIN Final Result Performing Organization Address City/[facility]/ZIP Co de Phone Number [facility] [address] [place] [address], * Non-gynecologic cytology (08/05/2024 12:20 PM EST) [...] lymph node elements present. 08/09/2024 1:04 PM [facility] Specimen A Adequacy Satisfactory for evaluation 08/09/2024 1:04 PM [facility] Specimen B Adequacy Satisfactory for evaluation 08/09/2024 1:04 PM [facility] Specimen C Adequacy Satisfactory for evaluation 08/09/2024 1:04 PM [facility] Specimen D Adequacy Satisfactory for evaluation 08/09/2024 1:04 PM [facility] Specimen E Adequacy Specimen processed and examined, but unsatisfactory for eval of abnormal epithelial 08/09/2024 1:04 PM [facility] Specimen F Adequacy Satisfactory for evaluation 08/09/2024 1:04 PM [facility] Gross Description A. Lung, [...] embedded. Technical cytopathology services provided by [facility], at [address] [place] [address] (CLIA # [id number]/Gladys Prince MD, Materials Analyst.) 08/09/2024 1:04 PM EST [facility] [...] MD LAB CYTOLOGY ORDERABLES Final Re sult [facility]) [facility] [address] [place] [address], * TH AN ENDOTRACHEAL(NO CHARGE) (08/05/2024 12:08 PM EST) Narrative Candelaria Tatum CRNA - 08/05/2024 12:08 PM EST Candelaria Tatum CRNA ? 08/05/2024 12:10 PM General Information and Staff Patient location during procedure: OR Anesthesiologist: Monroe Kim MD Resident/HOUSEKEEPING COORDINATOR: Candelaria Tatum CRNA Performed: resident/HOUSEKEEPING COORDINATOR/CAA Performed by: Candelaria Tatum CRNA Authorized by: [...] mmol/L LAB CHEMISTRY METHOD 08/05/2024 8:01 AM [facility] Potassium 4.5 3.5 - 5.5 mmol/L LAB CHEMISTRY METHOD 08/05/2024 8:01 AM [facility] Chloride 96 96 - 110 mmol/L LAB CHEMISTRY METHOD 08/05/2024 8:01 AM [facility] CO2 32 21 - 32 mmol/L LAB CHEMISTRY METHOD 08/05/2024 8:01 AM [facility] Anion Gap 5 3 - 11 LAB CHEMISTRY METHOD 08/05/2024 8:01 AM [facility] Glucose 138(H) 70 - 100 mg/dL LAB CHEMISTRY METHOD 08/05/2024 8:01 AM [facility] BUN 53(H) 5 - 25 mg/dL LAB CHEMISTRY METHOD 08/05/2024 8:01 AM [facility] Creatinine 3.91(H) 0.50 - 1.10 mg/dL LAB CHEMISTRY METHOD 08/05/2024 8:01 AM [facility] eGFR 11(L) >=60 mL/min/1. 73m2 LAB CHEMISTRY METHOD 08/05/2024 8:01 AM [facility] Comment:Calculation based on the??Chronic Kidney Disease Epidemiology Collaboration (CKD-EPI) equation refit??without adjustment for race. BUN/Creatinine Ratio 13.6 LAB CHEMISTRY METHOD 08/05/2024 8:01 AM [facility] Calcium 8.4(L) 8.5 - 10.5 mg/dL LAB CHEMISTRY METHOD 08/05/2024 8:01 AM [facility] Blood Venous blood specimen / Unknown Venipuncture / Unknown 08/05/2024 7:04 AM EST 08/05/2024 7:34 AM EST Steve Cruz MD LAB BLOOD ORDERABLES Fi nal Result [facility] [address] [place] [address], * (ABNORMAL) CBC - Every 3 Days (08/05/2024 7:03 AM EST) Only the most recent of13 resultswithin the time period is included. WBC 8.8 4.8 - 10.8 K/mcL LAB HEMETOLOGY METHOD 08/05/2024 7:42 AM [facility] RBC 2.90(L) 3.80 - 4.80 M/mcL LAB HEMETOLOGY METHOD 08/05/2024 7:42 AM [facility] Hemoglobin 7.9(L) 11.5 - 16.0 g/dL LAB HEMETOLOGY METHOD 08/05/2024 7:42 AM [facility] Hematocrit 25.5(L) 35.0 - 47.0 % LAB HEMETOLOGY METHOD 08/05/2024 7:42 AM [facility] MCV 87.6 79.0 - 98.0 FL LAB HEMETOLOGY METHOD 08/05/2024 7:42 AM [facility] MCH 27.1 27.0 - 32.0 pcg LAB HEMETOLOGY METHOD 08/05/2024 7:42 AM [facility] MCHC 31.0(L) 32.0 - 37.0 g/dL LAB HEMETOLOGY METHOD 08/05/2024 7:42 AM [facility] RDW 21.9(H) 11.0 - 15.0 % LAB HEMETOLOGY METHOD 08/05/2024 7:42 AM [facility] Platelets 180 130 - 400 K/mcL LAB HEMETOLOGY METHOD 08/05/2024 7:42 AM [facility] MPV 10.8 7.0 - 11.0 FL LAB HEMETOLOGY METHOD 08/05/2024 7:42 AM [facility] NRBC 0.0 <1.0 % LAB HEMETOLOGY METHOD 08/05/2024 7:42 AM [facility] NRBC Absolute 0.00 <0.10 K/mcL LAB HEMETOLOGY METHOD 08/05/2024 7:42 AM [facility] Blood Venous blood specimen / Unknown Venipuncture / Unknown 08/05/2024 7:03 AM EST 08/05/2024 7:34 AM EST Lencho Stuart MD LAB BLOOD ORDERABLES Final R esult [facility] [address] [place] [address], [place] [phone] * (ABNORMAL) Creatinine, Serum - Every 7 [...] Re sult Performing Organization Address [facility]/ZIP Co de Phone Number [facility] [address] [place] [address], [place] [phone] * Hepatitis B surface antigen with reflex to confirmation (08/03/2024 8:49 AM EST) Only the most recent of3 resultswithin the time period is included. Hepatitis B Surface Ag Negative Negative LAB CHEMISTRY METHOD 08/03/2024 10:11 AM EST [facility] Blood Venous blood specimen / Unknown Venipuncture / Unknown 08/03/2024 8:49 AM EST 08/03/2024 9:22 AM EST Narrative [facility] - 08/03/2024 10:11 AM EST Over the counter supplements containing high doses of biotin may interfere with this assay. ??If interference is suspected, patients shoud be retested after refraining from biotin supplements for 72 hours. us Steve Cruz MD LAB BLOOD ORDERABLES Fi nal Result Performing Organization Address City/[facility]/ZIP Co de Phone Number [facility] [address] [place] [address], [place] [phone] * Hepatitis B surface antibody quantitative (08/03/2024 8:49 AM EST) Only the most recent of2 resultswithin the time period is included. [facility] Hepatitis B Surface Ab Negative Negative LAB CHEMISTRY METHOD 08/03/2024 9:59 AM EST [facility] Hepatitis B Surface Ab Quantitative <3.1 mIU/mL LAB CHEMISTRY METHOD 08/03/2024 9:59 AM EST [facility] Blood Venous blood specimen / Unknown Venipuncture / Unknown 08/03/2024 8:49 AM EST 08/03/2024 9:22 AM EST Narrative [facility] - 08/03/2024 9:59 AM EST >=10 mIU/mL is considered to be consistent with immunity. Steve Cruz MD LAB BLOOD ORDERABLES Fi nal Result Performing Organization Address [facility] de Phone Number [facility] [address] [place] [address], * (ABNORMAL) CBC auto differential (08/03/2024 6:01 AM EST) Only the most recent of24 resultswithin the time period is included. [facility] WBC 7.5 4.8 - 10.8 K/mcL LAB HEMETOLOGY METHOD 08/03/2024 7:49 AM EST [facility] RBC 2.90(L) 3.80 - 4.80 M/mcL LAB HEMETOLOGY METHOD 08/03/2024 7:49 AM EST [facility] Hemoglobin 7.8(L) 11.5 - 16.0 g/dL LAB HEMETOLOGY METHOD 08/03/2024 7:49 AM [facility] Hematocrit 24.7(L) 35.0 - 47.0 % LAB HEMETOLOGY METHOD 08/03/2024 7:49 AM [facility] MCV 85.8 79.0 - 98.0 FL LAB HEMETOLOGY METHOD 08/03/2024 7:49 AM [facility] MCH 27.1 27.0 - 32.0 pcg LAB HEMETOLOGY METHOD 08/03/2024 7:49 AM [facility] MCHC 31.6(L) 32.0 - 37.0 g/dL LAB HEMETOLOGY METHOD 08/03/2024 7:49 AM [facility] RDW 21.6(H) 11.0 - 15.0 % LAB HEMETOLOGY METHOD 08/03/2024 7:49 AM [facility] Platelets 188 130 - 400 K/mcL LAB HEMETOLOGY METHOD 08/03/2024 7:49 AM [facility] MPV 11.2(H) 7.0 - 11.0 FL LAB HEMETOLOGY METHOD 08/03/2024 7:49 AM [facility] NRBC 0.0 <1.0 % LAB HEMETOLOGY METHOD 08/03/2024 7:49 AM [facility] NRBC Absolute 0.00 <0.10 K/mcL LAB HEMETOLOGY METHOD 08/03/2024 7:49 AM [facility] Neutrophils Relative 77.2 % LAB HEMETOLOGY METHOD 08/03/2024 7:49 AM [facility] Lymphocytes Relative 12.8 % LAB HEMETOLOGY METHOD 08/03/2024 7:49 AM [facility] Monocytes Relative 8.0 % LAB HEMETOLOGY METHOD 08/03/2024 7:49 AM [facility] Eosinophils Relative 0.4 % LAB HEMETOLOGY METHOD 08/03/2024 7:49 AM [facility] Basophils Relative 0.1 % LAB HEMETOLOGY METHOD 08/03/2024 7:49 AM [facility] Immature Granulocytes Relative 1.5 % LAB HEMETOLOGY METHOD 08/03/2024 7:49 AM [facility] Neutrophils Absolute 5.78 1.50 - 7.00 K/mcL LAB HEMETOLOGY METHOD 08/03/2024 7:49 AM [facility] Lymphocytes Absolute 0.96(L) 1.00 - 5.00 K/mcL LAB HEMETOLOGY METHOD 08/03/2024 7:49 AM [facility] Monocytes Absolute 0.60 0.20 - 1.00 K/mcL LAB HEMETOLOGY METHOD 08/03/2024 7:49 AM [facility] Eosinophils Absolute 0.03 0.00 - 0.50 K/mcL LAB HEMETOLOGY METHOD 08/03/2024 7:49 AM [facility] Basophils Absolute 0.01 0.00 - 0.20 K/mcL LAB HEMETOLOGY METHOD 08/03/2024 7:49 AM [facility] Immature Granulocytes Absolute 0.11(H) 0.00 - 0.03 K/mcL LAB HEMETOLOGY METHOD 08/03/2024 7:49 AM [facility] Blood Venous blood specimen / Unknown Venipuncture / Unknown 08/03/2024 6:01 AM EST 08/03/2024 7:27 AM EST Steve Cruz MD LAB BLOOD ORDERABLES Fi nal Result [facility] [address] [place] [address], * Phosphorus (08/03/2024 6:01 AM EST) Only [...] ORDERABLES Fi nal Result Performing Organization Address City/[facility]/ZIP Co de Phone Number [facility] [address] [place] [address], [place] [phone] * Magnesium (08/03/2024 6:01 AM EST) Only the most recent of9 resultswithin the time period is included. Pathologist [facility] Magnesium 2.1 1.9 - 2.6 mg/dL LAB CHEMISTRY METHOD 08/03/2024 8:11 AM EST [facility] Blood Venous blood specimen / Unknown Venipuncture / Unknown 08/03/2024 6:01 AM EST 08/03/2024 7:27 AM EST us Steve Cruz MD LAB BLOOD ORDERABLES Fi nal Result [facility] [address] [place] [address], [place] [phone] * Type and screen (08/02/2024 3:04 PM EST) Only the most recent of5 resultswithin the time period is included. Pathologist [facility] ABO Group O 08/02/2024 4:52 PM EST [facility] Rh Type Positive 08/02/2024 4:52 PM EST [facility] Antibody Screen Negative 08/02/2024 4:52 PM [facility] Blood Venous blood specimen / Unknown Venipuncture / Unknown 08/02/2024 3:04 PM EST 08/02/2024 4:07 PM EST us Steve Cruz MD LAB BLOOD BANK TEST ORD ERABLES Final Result [facility] [address] [place] [address], [place] [phone] * Prepare RBC: 1 Units (08/02/2024 2:09 PM EST) Only the most recent of4 resultswithin the time period is included. [facility] Signature Product Code [id number] 08/02/2024 6:27 PM [facility] Unit Number [id number] 08/02/19 6:27 PM [facility] Crossmatch Compatible 08/02/2024 5:03 PM [facility] Dispense Status Transfused 08/02/2024 6:27 PM [facility] Unit ABO Rh OPOS 08/02/2024 6:27 PM [facility] Unit Expiration Date Time [id number] 08/02/2024 6:27 PM [facility] Unit Blood Type 5100 08/02/2024 6:27 PM [facility] Blood Venous blood specimen / Unknown 08/02/2024 2:09 PM EST 08/02/2024 4:07 PM EST us Steve Cruz MD BLOOD BANK PRODUCT ORDE RABLES Final Result [facility] [address] [place] [address], * (ABNORMAL) Hemoglobin and hematocrit (07/31/2024 2:30 PM EST) Only the most recent of4 resultswithin the time period is included. Pathologist [facility] Hemoglobin 7.3(L) 11.5 - 16.0 g/dL LAB [...] Re sult [facility] [address] [place] [address], [place] [phone] * (ABNORMAL) Hepatic Function Panel - STAT (07/30/2024 11:52 AM EST) Only the most recent of3 resultswithin the time period is included. [facility] Total Protein 5.2(L) 6.0 - 8.0 g/dL LAB CHEMISTRY METHOD 07/30/2024 12:56 PM [facility] Albumin 2.4(L) 3.2 - 5.0 g/dL LAB CHEMISTRY METHOD 07/30/2024 12:56 PM [facility] Total Bilirubin 0.4 0.0 - 1.4 mg/dL LAB CHEMISTRY METHOD 07/30/2024 12:56 PM [facility] Bilirubin, Direct 0.2 0.0 - 0.3 mg/dL LAB CHEMISTRY METHOD 07/30/2024 12:56 PM [facility] Bilirubin, Indirect 0.2 0.0 - 1.1 mg/dL LAB CHEMISTRY METHOD 07/30/2024 12:56 PM [facility] ALT (SGPT) 17 10 - 60 unit/L LAB CHEMISTRY METHOD 07/30/2024 12:56 PM EST [facility] AST (SGOT) 12 10 - 42 unit/L LAB CHEMISTRY METHOD 07/30/2024 12:56 PM EST [facility] Alkaline Phosphatase 80 42 - 121 unit/L LAB CHEMISTRY METHOD 07/30/2024 12:56 PM EST [facility] Blood Venous blood specimen / Unknown Venipuncture / Unknown 07/30/2024 11:52 AM EST 07/30/2024 12:28 PM EST us Jonny Mathur MD LAB BLOOD ORDERABLES Final Re sult Performing Organization Address [facility] Co de Phone Number [facility] [address] [place] [address], [place] [phone] * (ABNORMAL) Heparin and low molecular weight [...] ORDERABLES Final Re sult Performing Organization Address City/[facility]/ZIP Co de Phone Number [facility] [address] [place] [address], [place] [phone] * Hepatitis B core antibody IgM (07/28/2024 12:19 PM EST) [facility] Hep B Core IgM Negative Negative LAB [...] ORDERABLES Final Res ult Performing Organization Address [facility] Co de Phone Number [facility] [address] [place] [address], * Hepatitis B surface antibody (07/28/2024 12:19 PM EST) [facility] Hepatitis B Surface Ab Negative Negative LAB [...] ORDERABLES Final Res ult Performing Organization Address [facility]/ZIP Co de Phone Number [facility] [address] [place] [address], [place] [phone] * Transfuse RBC (07/23/2024 6:19 PM EST) Only the most recent of3 resultswithin the time period is included. Lencho Stuart MD BLOOD TRANSFUSION ORDERABLES Final Result * Insert Midline (07/23/2024 4:52 PM EST) Narrative Maggy Spencer, ILIR - 07/23/2024 4:52 PM EST Maggy Spencer RN ? 07/23/2024 ??5:02 PM Midline Insertion Procedure Note Procedure: Insertion of 18g/10cm Bard Powerglide midline Lot: [id number] Exp: 2025-05-28 Indications: ??Difficult draw with frequent [...] Signed Date: 07/22/2024 17:00 ET Workstation ID: [id number] Transcribed By: Self Edit Transcribed Date: 07/22/2024 [...] of fentanyl administered during the procedure. Scanner: Horrance Brightspeed [address] Dose reduction technique: [...] of fentanyl administered during the procedure. Scanner: Horrance Brightspeed [address] Dose reduction technique: [...] Signed Date: 07/22/2024 17:00 ET Workstation ID: [id number] Transcribed By: Self Edit Transcribed Date: 07/22/2024 [...] Tissue exam (07/22/2024 3:13 PM EST) Addendum [facility] Kidney (addendum) This case was sent to [facility], Department of Pathology, [place], [place] (CLIA: [id number]). Their diagnosis is summarized as follows: Pathologic [...] report for full kidney biopsy diagnosis from [facility], [place], [place]) 08/12/2024 10:52 AM [facility] ([facility]) [facility] Addendum electronically signed by Mitchell Prince MD on 08/12/2024 at 10:52 AM Final Diagnosis Kidney, left-biopsies for routine, immunofluorescence and electron microscopy: -Submitted in toto to [facility] -See addendum report 08/12/2024 10:52 AM [facility] ([facility]) [facility] Gross Description A. Kidney, Left, : Labeled kidney L . Received fresh in saline are 3 perez-pink soft tissue cores, ranging from 0.7 x 0.1 cm to 1.7 x 0.1 cm, which are transfered to formalin for light microscopy, Mick fixative for Immunofluorescence, and Glutaraldehyde for electron microscopy. The specimen is entirely submitted to [facility] for analysis. ELOISE 08/12/2024 10:52 AM EST [facility] Disclaimer Unless otherwise specified, all tissue is 10% NB formalin fixed and paraffin embedded. 08/12/2024 10:52 AM [facility] Tissue Left kidney structure / Unknown 07/22/2024 3:13 PM EST 07/22/2024 3:39 PM EST Fela Palomo MD LAB PATHOLOGY ORDERABLES Edited Result - Final [facility] [address] [place] [address], * (ABNORMAL) Prothrombin time with INR (07/22/2024 11:00 AM EST) Only the most recent of4 resultswithin the time period is included. Pathologist [facility] Protime 16.3(H) 10.6 - 13.9 sec LAB COAGULATION METHOD 07/22/2024 1:11 PM [facility] INR 1.3 LAB COAGULATION METHOD 07/22/2024 1:11 PM [facility] Blood Venous blood specimen / Unknown Venipuncture / Unknown 07/22/2024 11:00 AM EST 07/22/2024 11:22 AM EST Lencho Stuart MD LAB BLOOD ORDERABLES Final R esult [facility] [address] [place] [address], [place] [phone] * SST tube (07/22/2024 10:53 AM EST) Only the most recent of2 resultswithin the time period is included. Extra Tube Hold for add-ons. 07/22/2024 1:01 PM [facility] Comment:Auto resulted. Blood Venous blood specimen / Unknown 07/22/2024 10:53 AM EST 07/22/2024 11:25 AM EST us Lencho Stuart MD LAB BLOOD ORDERABLES Final R esult Performing Organization Address [facility]/ZIP Co de Phone Number [facility] [address] [place] [address], [place] [phone] * Lavender tube (07/22/2024 10:53 AM EST) Extra Tube Hold for add-ons. 07/22/2024 1:01 PM EST [facility] Comment:Auto resulted. Blood Venous blood specimen / Unknown 07/22/2024 10:53 AM EST 07/22/2024 11:25 AM EST us Lencho Stuart MD LAB BLOOD ORDERABLES Final R esult Performing Organization Address [facility] Co de Phone Number [facility] [address] [place] [address], [place] [phone] * Activated Partial Thromboplastin Time - STAT [...] ORDERABLES Final R esult Performing Organization Address City/[facility]/ZIP Co de Phone Number [facility] [address] [place] [address], [place] [phone] * (ABNORMAL) Microalbumin creatinine urine ratio (07/19/2024 12:01 PM EST) Only the most recent of2 resultswithin the time period is included. Creatinine, Urine 41.0 mg/dL LAB CHEMISTRY METHOD 07/19/2024 1:46 PM [facility] Microalb, Ur 1,480.0(H ) 0.0 - 29.0 mg/L LAB CHEMISTRY METHOD 07/19/2024 1:46 PM [facility] Microalb/Crea t Ratio 3,610(H) <30 mg/g creat LAB CHEMISTRY METHOD 07/19/2024 1:46 PM [facility] Urine Urine specimen obtained by clean catch procedure / Unknown Non-blood Collection / Unknown 07/19/2024 12:01 PM EST 07/19/2024 12:30 PM EST us Miguel Quiles MD LAB URINE ORDERABLES Final Res ult Performing Organization Address City/[facility]/ZIP Co de Phone Number [facility] [address] [place] [address], [place] [phone] * Creatinine, urine, random (07/19/2024 12:01 PM [...] Res ult [facility] [address] [place] [address], [place] [phone] * (ABNORMAL) Parathyroid hormone related protein (07/19/2024 7:55 AM EST) [facility] PTH-related Protein (PTHrP) 24(H) 11 - 20 [...] analytical performance characteristics have been determined by [facility]. It has not been cleared or approved by FDA. This assay has been validated pursuant to the CLIA regulations and is used for clinical purposes. Test Performed at: [facility] [id number] [place], [place] ??[id number] ? I Bethany GUERRERO, PhD, NINA Blood Venous blood specimen / Unknown Venipuncture / Unknown 07/19/2024 7:55 AM EST 07/19/2024 7:55 AM EST us Jesus Manuel HEDRICK LAB BLOOD ORDERABLES Final Resu lt [facility] [address] [place] [address] * (ABNORMAL) Anti-neutrophilic cytoplasmic antibody (07/19/2024 6:52 AM EST) Only the most recent of2 resultswithin the time period is included. [facility] Myeloperoxidase Ab Negative Negative LAB CHEMISTRY METHOD [...] ORDERABLES Final Res ult Performing Organization Address [facility]/ZIP Co de Phone Number [facility] [address] [place] [address], [place] [phone] * Robertson urine culture tube (07/18/2024 6:10 AM EST) Only the most recent of2 resultswithin the time period is included. Pathologist [facility] Extra Tube Hold for add-ons. 07/18/2024 8:01 AM [facility] Comment:Auto resulted. Urine Urine specimen obtained by clean catch procedure / Unknown 07/18/2024 6:10 AM EST 07/18/2024 6:37 AM EST Lencho Stuart MD LAB URINE ORDERABLES Final R esult Performing Organization Address [facility]/ZIP Co de Phone Number [facility] [address] [place] [address], [place] [phone] * (ABNORMAL) Urinalysis microscopic only (07/18/2024 6:09 AM EST) RBC, Urine 10(H) 0 - 4 /HPF 07/18/2024 7:53 AM [facility] WBC, Urine >100(H) 0 - 4 /HPF 07/18/2024 7:53 AM [facility] Squamous Epithelial, Urine 10 0 - 60 /LPF 07/18/2024 7:53 AM [facility] Non-Squamous Epithelial, Urine 2-5 Transitional epithelial cells. /LPF 07/18/2024 7:53 AM [facility] Bacteria, Urine Many(A) Negative /HPF 07/18/2024 7:53 AM [facility] Other Casts, Urine Rare Coarse Granular casts. /LPF 07/18/2024 7:53 AM EST [facility] Urine Indwelling urinary catheter / Unknown Non-blood Collection / Unknown 07/18/2024 6:09 AM EST 07/18/2024 6:36 AM EST us Gian Crum MD LAB URINE ORDERABLES F inal Result Performing Organization Address [facility] Co de Phone Number [facility] [address] [place] [address], [place] [phone] * (ABNORMAL) Calcium, ionized (07/18/2024 6:07 AM EST) Only the most recent of2 resultswithin the time period is included. Calcium Ionized 4.28(L) 4.50 - 5.30 mg/dL 07/18/2024 6:46 AM EST [facility] Blood Venous blood specimen / Unknown 07/18/2024 6:07 AM EST 07/18/2024 6:33 AM EST us Gian Crum MD LAB BLOOD ORDERABLES F inal Result Performing Organization Address [facility] de Phone Number [facility] [address] [place] [address], [place] [phone] * Vascular US duplex lower extremity venous [...] Signed Date: 07/16/2024 12:33 ET Workstation ID: [id number] Transcribed By: Self Edit Transcribed Date: 07/16/2024 [...] Signed Date: 07/16/2024 12:33 ET Workstation ID: [id number] Transcribed By: Self Edit Transcribed Date: 07/16/2024 12:28 ET us Gian Crum MD CV VASCULAR PROCEDURES Final Result * IR Insert Tunneled CVC wo Port or Pump More 5yrs Left (07/15/2024 3:36 PM EST) Anatomical Region Laterality Modality Left Interventional R adiology 07/15/2024 3:45 PM EST Impressions 07/15/2024 3:47 PM EST Successful placement of a 14 Qatari 23 cm dual-lumen cuffed tunneled dialysis catheter with the tip at the cavoatrial junction. This line may be used immediately. -------- FINAL REPORT -------- Dictated By: Fela Palomo Dictated Date: 07/15/2024 15:45 ET Assigned Physician: Fela Palomo Reviewed and Electronically Signed By: Fela Palomo Signed Date: 07/15/2024 15:47 ET Workstation ID: [id number] Transcribed By: Self Edit Transcribed Date: 07/15/2024 [...] The needle was exchanged for the 4 Qatari transition sheath. A 0.035 wire was then advanced through ??the sheath and into the inferior vena cava under fluoroscopy. The sheath was then exchanged for a 7 Qatari vascular dilator. Attention was then turned to the right upper chest and the appropriate area was anesthetized with 2% lidocaine. A small dermatotomy was performed and then a tunnel was created from the dermatotomy to the initial venous access site. The catheter was advanced through the tunnel. ??The initial venous access site was then serially dilated up to a 15 Qatari peel-away sheath. The catheter was then advanced [...] The needle was exchanged for the 4 Qatari transition sheath. A 0.035wire was then advanced through the sheath and into the inferior vena cavaunder fluoroscopy. The sheath was then exchanged for a 7 Qatari vasculardilator. Attention was then turned to the right upper chest and the appropriatearea was anesthetized with 2% lidocaine. A small dermatotomy was performedand then a tunnel was created from the dermatotomy to the initial venousaccess site. The catheter was advanced through the tunnel. The initialvenous access site was then serially dilated up to a 15 Qatari peel-awaysheath. The catheter was then advanced through [...] mGy IMPRESSION: Successful placement of a 14 Q[place] 23 cm dual-lumen cuffed tunneleddialysis catheter with the tip at the cavoatrial junction. This line maybe used immediately. -------- FINAL REPORT -------- Dictated By: Fela Palomo Dictated Date: 07/15/2024 15:45 ET Assigned Physician: Fela Palomo Reviewed and Electronically Signed By: Fela Palomo Signed Date: 07/15/2024 15:47 ET Workstation ID: [id number] Transcribed By: Self Edit Transcribed Date: 07/15/2024 15:45 ET us Chencho Wayne MD IMG IR PROCEDURES Final Result * (ABNORMAL) Renal function panel (07/15/2024 8:56 AM EST) Sodium 132(L) 133 - 145 mmol/L LAB CHEMISTRY METHOD 07/15/2024 10:26 AM [facility] Potassium 3.8 3.5 - 5.5 mmol/L LAB CHEMISTRY METHOD 07/15/2024 10:26 AM [facility] Chloride 104 96 - 110 mmol/L LAB CHEMISTRY METHOD 07/15/2024 10:26 AM [facility] CO2 16(L) 21 - 32 mmol/L LAB CHEMISTRY METHOD 07/15/2024 10:26 AM [facility] Anion Gap 12(H) 3 - 11 LAB CHEMISTRY METHOD 07/15/2024 10:26 AM [facility] Glucose 80 70 - 100 mg/dL LAB CHEMISTRY METHOD 07/15/2024 10:26 AM [facility] BUN 97(H) 5 - 25 mg/dL LAB CHEMISTRY METHOD 07/15/2024 10:26 AM [facility] Creatinine 6.70(H) 0.50 - 1.10 mg/dL LAB CHEMISTRY METHOD 07/15/2024 10:26 AM EST [facility] eGFR 6(L) >=60 mL/min/1. 73m2 LAB CHEMISTRY METHOD 07/15/2024 10:26 AM [facility] Comment:Calculation based on the??Chronic Kidney Disease Epidemiology Collaboration (CKD-EPI) equation refit??without adjustment for race. BUN/Creatinine Ratio 14.5 LAB CHEMISTRY METHOD 07/15/2024 10:26 AM [facility] Albumin 3.3 3.2 - 5.0 g/dL LAB CHEMISTRY METHOD 07/15/2024 10:26 AM [facility] Comment:Results verified by repeat testing Calcium 8.4(L) 8.5 - 10.5 mg/dL LAB CHEMISTRY METHOD 07/15/2024 10:26 AM [facility] Phosphorus 4.2 2.5 - 4.5 mg/dL LAB CHEMISTRY METHOD 07/15/2024 10:26 AM [facility] Blood Venous blood specimen / Unknown Venipuncture / Unknown 07/15/2024 8:56 AM EST 07/15/2024 9:43 AM EST us Chencho Wayne MD LAB BLOOD ORDERABLES Final Resu lt [facility] [address] [place] [address], * (ABNORMAL) RBC morphology review (07/15/2024 6:56 AM EST) Rbc Morphology Present( A) Consistent with indices, Normal for LAB HEMETOLOGY METHOD 07/15/2024 8:54 AM [facility] Platelet Morphology - WAM See Note(A) Normal LAB HEMETOLOGY METHOD 07/15/2024 8:54 AM [facility] Comment:PLT: Normal Polychromasia Present [...] ORDERABLES F inal Result Performing Organization Address [facility]/ZIP Co de Phone Number [facility] [address] [place] [address], [place] [phone] * Extractable Nuclear Antibodies Profile (07/14/2024 6:00 AM EST) SM Ab Negative Negative LAB CHEMISTRY METHOD 07/17/2024 12:29 PM EST [facility] SM Antibody Quant 2 <20 units LAB CHEMISTRY METHOD 07/17/2024 12:29 PM EST [facility] MOP MACHINE OPERATOR Ab Negative Negative LAB CHEMISTRY METHOD 07/17/2024 12:29 PM EST [facility] MOP MACHINE OPERATOR Antibody Quant 1 <20 units LAB CHEMISTRY METHOD 07/17/2024 12:29 PM EST [facility] Blood Venous blood specimen / Unknown 07/14/2024 6:00 AM EST 07/14/2024 6:35 AM EST us Gian Crum MD LAB BLOOD ORDERABLES F inal Result Performing Organization Address [facility]/ZIP Co de Phone Number [facility] [address] [place] [address], [place] [phone] * (ABNORMAL) C3 complement (07/14/2024 6:00 AM EST) C3 Complement 78(L) 88 - 201 mg/dL LAB CHEMISTRY METHOD 07/14/2024 11:20 AM EST [facility] Blood Venous blood specimen / Unknown 07/14/2024 6:00 AM EST 07/14/2024 6:35 AM EST us Gian Crum MD LAB BLOOD ORDERABLES F inal Result [facility] [address] [place] [address], [place] [phone] * C4 complement (07/14/2024 6:00 AM EST) C4 Complement 18 16 - 47 mg/dL LAB CHEMISTRY METHOD 07/14/2024 11:20 AM EST [facility] Blood Venous blood specimen / Unknown 07/14/2024 6:00 AM EST 07/14/2024 6:35 AM EST us Gian Crum MD LAB BLOOD ORDERABLES F inal Result [facility] [address] [place] [address], [place] [phone] * (ABNORMAL) Sedimentation rate (07/13/2024 6:38 AM EST) Sed Rate 84(H) 0 - 30 mm/hr LAB HEMETOLOGY METHOD 07/13/2024 7:32 AM EST [facility] Blood Venous blood specimen / Unknown Venipuncture / Unknown 07/13/2024 6:38 AM EST 07/13/2024 6:51 AM EST us Gian Crum MD LAB BLOOD ORDERABLES F inal Result Performing Organization Address [facility] Co de Phone Number [facility] [address] [place] [address], [place] [phone] * Uric acid (07/13/2024 6:38 AM EST) [...] ORDERABLES Final Resu lt Performing Organization Address [facility] de Phone Number [facility] [address] [place] [address], [place] [phone] * (ABNORMAL) Protein and creatinine with ratio, urine (07/12/2024 3:27 PM EST) Pathologist [facility] Protein, Urine 192 mg/dL LAB CHEMISTRY METHOD [...] ORDERABLES Final Resu lt Performing Organization Address [facility] Co de Phone Number [facility] [address] [place] [address], [place] [phone] * Sodium, urine, random (07/12/2024 3:27 PM EST) Sodium, Ur 34 mmol/L LAB CHEMISTRY METHOD 07/12/2024 6:44 PM EST [facility] Urine Urine specimen obtained by clean catch procedure / Unknown Non-blood Collection / Unknown 07/12/2024 3:27 PM EST 07/12/2024 4:10 PM EST Aye HEDRICK LAB URINE ORDERABLES Final Re sult [facility] [address] [place] [address], [place] [phone] * Osmolality, urine (07/12/2024 3:27 PM EST) Pathologist [facility] Osmolality, Urine 397 300 - 1,300 mOsm/kg LAB CHEMISTRY METHOD 07/12/2024 5:57 PM EST [facility] Urine Urine specimen obtained by clean catch procedure / Unknown Non-blood Collection / Unknown 07/12/2024 3:27 PM EST 07/12/2024 4:10 PM EST Aye HEDRICK LAB URINE ORDERABLES Final Re sult [facility] [address] [place] [address], [place] [phone] * CT Chest wo Contrast (07/12/2024 12:48 [...] Small bilateral pleural [place]usions[place] ([id number]) -------- FINAL REPORT -------- Dictated By: Edilia Durbin Dictated Date: 07/12/2024 13:07 ET Assigned Physician: Edilia Durbin Reviewed and Electronically Signed By: Edilia Durbin Signed Date: 07/12/2024 13:19 ET Workstation ID: [id number] Transcribed By: Self Edit Transcribed Date: 07/12/2024 13:07 ET Narrative 07/12/2024 1:19 PM EST History: Abnormal chest radiograph. The patient underwent nondiagnostic CT- guided biopsy of the right apical lung nodule on 05/23/24. Comparison: Thoracic CT 06/17/24, 03/21/24 Technique: Helical volumetric imaging of the thorax was performed without IV contrast. DLP: 613.10 mGy/cm [employer] VCT Iterative reconstruction technique Findings: Respiratory motion [...] was performed withoutIV contrast. DLP: 613.10 mGy/cm [employer] VCT Iterative reconstruction technique Findings: Respiratory motion [...] Small bilateral pleural [place]usions[place] ([id number]) -------- FINAL REPORT -------- Dictated By: Edilia Durbin Dictated Date: 07/12/2024 13:07 ET Assigned Physician: Edilia Durbin Reviewed and Electronically Signed By: Edilia Durbin Signed Date: 07/12/2024 13:19 ET Workstation ID: [id number] Transcribed By: Self Edit Transcribed Date: 07/12/2024 [...] inal Result [facility] [address] [place] [address], * (ABNORMAL) C-reactive protein (07/12/2024 6:19 AM EST) [facility] C-Reactive Protein 16.60(H) <=0.50 mg/dL LAB CHEMISTRY METHOD 07/12/2024 10:35 AM EST [facility] Blood Venous blood specimen / Unknown Venipuncture / Unknown 07/12/2024 6:19 AM EST 07/12/2024 6:56 AM EST us Gian Crum MD LAB BLOOD ORDERABLES F inal Result Performing Organization Address City/[facility]/ZIP Co de Phone Number [facility] [address] [place] [address], [place] [phone] * (ABNORMAL) Lipase (07/12/2024 6:19 AM EST) Only the most recent of2 resultswithin the time period is included. [facility] Lipase <10(L) 13 - 75 unit/L LAB CHEMISTRY METHOD 07/12/2024 3:26 PM EST [facility] Blood Venous blood specimen / Unknown Venipuncture / Unknown 07/12/2024 6:19 AM EST 07/12/2024 6:56 AM EST us Gian Crum MD LAB BLOOD ORDERABLES F inal Result Performing Organization Address [facility] Co de Phone Number [facility] [address] [place] [address], [place] [phone] * Pathologist Review Immunofixation (07/11/2024 6:21 AM EST) [facility] Pathologist Interpretation Reviewed by Rosenda Galeana MD 07/13/2024 4:13 PM EST [facility] Blood Venous blood specimen / Unknown Venipuncture / Unknown 07/11/2024 6:21 AM EST 07/11/2024 6:43 AM EST us Chencho Wayne MD LAB BLOOD ORDERABLES Final Resu lt Performing Organization Address [facility]/ZIP Co de Phone Number [facility] [address] [place] [address], [place] [phone] * Immunofixation electrophoresis serum (07/11/2024 6:21 AM EST) [facility] Immunofixation Result, Serum Faint restriction of IgG [place], not observed on SPEP . Follow-up in 6 months if clinically indicated. LAB CHEMISTRY METHOD 07/13/2024 4:13 PM EST [facility] Blood Venous blood specimen / Unknown Venipuncture / Unknown 07/11/2024 6:21 AM EST 07/11/2024 6:43 AM EST us Chencho Wayne MD LAB BLOOD ORDERABLES Final Resu lt [facility] [address] [place] [address], [place] [phone] * Immunoglobulins IgG, IgA, IgM (07/11/2024 6:21 AM EST) [facility] Total IgG 1,090 549 - 1,584 mg/dL [...] Resu lt [facility] [address] [place] [address], [place] [phone] * (ABNORMAL) Triiodothyronine free (07/10/2024 5:16 AM EST) [facility] T3, Free 154(L) 230 - 420 pcg/dL LAB CHEMISTRY METHOD 07/10/2024 2:10 PM EST [facility] Blood Venous blood specimen / Unknown Venipuncture / Unknown 07/10/2024 5:16 AM EST 07/10/2024 6:42 AM EST Maria Alejandra Melendez MD LAB BLOOD ORDERABLES Final Res ult Performing Organization Address [facility]/ZIP Co de Phone Number [facility] [address] [place] [address], [place] [phone] * Thyroxine free (07/10/2024 5:16 AM EST) Free T4 0.92 0.70 - 1.80 ng/dL LAB CHEMISTRY METHOD 07/10/2024 2:04 PM EST [facility] Blood Venous blood specimen / Unknown Venipuncture / Unknown 07/10/2024 5:16 AM EST 07/10/2024 6:42 AM EST Maria Alejandra Melendez MD LAB BLOOD ORDERABLES Final Res ult Performing Organization Address [facility] de Phone Number [facility] [address] [place] [address], [place] [phone] * (ABNORMAL) Parathyroid hormone intact (07/10/2024 5:16 [...] ORDERABLES Final Res ult Performing Organization Address [facility]/ZIP Co de Phone Number [facility] [address] [place] [address], [place] [phone] * Creatine kinase (07/09/2024 6:25 AM EST) Total CK 172 22 - 269 unit/L LAB CHEMISTRY METHOD 07/09/2024 8:11 AM EST [facility] Blood Venous blood specimen / Unknown Venipuncture / Unknown 07/09/2024 6:25 AM EST 07/09/2024 7:11 AM EST Aye HEDRICK LAB BLOOD ORDERABLES Final Re sult Performing Organization Address City/[facility]/ZIP Co de Phone Number [facility] [address] [place] [address], [place] [phone] * Green LI heparin tube (07/08/2024 9:50 PM EST) [facility] Extra Tube Hold for add-ons. 07/09/2024 12:01 AM EST [facility] Comment:Auto resulted. Blood Venous blood specimen / Unknown 07/08/2024 9:50 PM EST 07/08/2024 10:41 PM EST Wayne Donahue MD LAB BLOOD ORDERABLES Final Re sult Performing Organization Address City/[facility]/ZIP Co de Phone Number [facility] [address] [place] [address], [place] [phone] * Culture blood (07/08/2024 9:49 PM EST) Only the most recent of2 resultswithin the time period is included. Pathologist [facility] Culture, Blood No growth at 5 days 07/13/2024 10:01 PM EST [facility] Blood Venous blood specimen / Unknown Venipuncture / Unknown 07/08/2024 9:49 PM EST 07/08/2024 9:54 PM EST Aye HEDRICK LAB MICROBIOLOGY - GENERAL OR DERABLES Final Result Performing Organization Address City/[facility]/ZIP Co de Phone Number [facility] [address] [place] [address], [place] [phone] * Lactate (07/08/2024 9:42 PM EST) Lactate 1.3 mmol/L 07/08/2024 10:30 PM EST [facility] Blood Venous blood specimen / Unknown Venipuncture / Unknown 07/08/2024 9:42 PM EST 07/08/2024 9:54 PM EST us Aye HEDRICK LAB BLOOD ORDERABLES Final Re sult Performing Organization Address [facility]/ZIP Co de Phone Number [facility] [address] [place] [address], [place] [phone] * (ABNORMAL) Electrolyte panel (07/08/2024 8:30 PM EST) Only the most recent of2 resultswithin the time period is included. Sodium 130(L) 133 - 145 mmol/L LAB CHEMISTRY METHOD 07/08/2024 11:37 PM [facility] Potassium 4.0 3.5 - 5.5 mmol/L LAB CHEMISTRY METHOD 07/08/2024 11:37 PM [facility] Chloride 98 96 - 110 mmol/L LAB CHEMISTRY METHOD 07/08/2024 11:37 PM [facility] CO2 22 21 - 32 mmol/L LAB CHEMISTRY METHOD 07/08/2024 11:37 PM [facility] Anion Gap 10 3 - 11 LAB CHEMISTRY METHOD 07/08/2024 11:37 PM [facility] Blood Venous blood specimen / Unknown Venipuncture / Unknown 07/08/2024 8:30 PM EST 07/08/2024 8:37 PM EST us Aye HEDRICK LAB BLOOD ORDERABLES Final Re sult Performing Organization Address City/[facility]/ZIP Co de Phone Number [facility] [address] [place] [address], * PATHOLOGIST REVIEW PROTEIN ELECTROPHORESIS (07/08/2024 5:52 PM EST) Pathologist [facility] Pathologist Interpretation Reviewed by Rosenda Galeana MD 07/14/2024 9:21 AM [facility] Blood Venous blood specimen / Unknown Venipuncture / Unknown 07/08/2024 5:52 PM EST 07/08/2024 6:00 PM EST Aye HEDRIKC LAB BLOOD ORDERABLES Final Re sult Performing Organization Address [facility]/ZIP Co de Phone Number [facility] [address] [place] [address], [place] [phone] * (ABNORMAL) Protein electrophoresis, serum (07/08/2024 5:52 PM EST) Pathologist [facility] Total Protein 6.4 6.0 - 8.0 g/dL LAB CHEMISTRY METHOD 07/14/2024 9:21 AM [facility] Albumin, Serum 2.2(L) 2.9 - 4.1 g/dL LAB CHEMISTRY METHOD 07/14/2024 9:21 AM [facility] Alpha 1 Globulin (g/dL) 0.6(H) 0.1 - 0.5 g/dL LAB CHEMISTRY METHOD 07/14/2024 9:21 AM [facility] Alpha 2 Globulin (g/dL) 1.2 0.7 - 1.5 g/dL LAB CHEMISTRY METHOD 07/14/2024 9:21 AM [facility] Beta (g/dL) 1.0 0.7 - 1.5 g/dL LAB CHEMISTRY METHOD 07/14/2024 9:21 AM [facility] Gamma Globulin (g/dL) 1.5 0.7 - 1.9 g/dL LAB CHEMISTRY METHOD 07/14/2024 9:21 AM EST [facility] SPEP Interpretation Hypoalbuminem ia, [...] Re sult [facility] [address] [place] [address], [place] [phone] * Protein, total (07/08/2024 5:52 PM EST) Pathologist [facility] Total Protein 6.4 6.0 - 8.0 g/dL LAB CHEMISTRY METHOD 07/08/2024 6:30 PM EST [facility] Blood Venous blood specimen / Unknown Venipuncture / Unknown 07/08/2024 5:52 PM EST 07/08/2024 6:00 PM EST Aye HEDRICK LAB BLOOD ORDERABLES Final Re sult [facility] [address] [place] [address], [place] [phone] * (ABNORMAL) Serum albumin (07/08/2024 5:52 PM EST) Albumin 2.1(L) 3.2 - 5.0 g/dL LAB CHEMISTRY METHOD 07/08/2024 6:34 PM EST [facility] Blood Venous blood specimen / Unknown Venipuncture / Unknown 07/08/2024 5:52 PM EST 07/08/2024 6:00 PM EST us Aye HEDRICK LAB BLOOD ORDERABLES Final Re sult [facility] [address] [place] [address], [place] [phone] * [place] Retroperitoneal Complete (07/08/2024 4:30 PM EST) Anatomical Region Laterality Modality Body Ultrasound 07/10/2024 2:07 PM EST Impressions 07/10/2024 2:08 PM EST Normal appearance of the kidneys. -------- FINAL REPORT -------- Dictated By: Primo Dee Dictated Date: 07/10/2024 14:07 ET Assigned Physician: Primo Dee Reviewed and Electronically Signed By: Primo Dee Signed Date: 07/10/2024 14:08 ET Workstation ID: [id number] Transcribed By: Self Edit Transcribed Date: 07/10/2024 [...] Signed Date: 07/10/2024 14:08 ET Workstation ID: [id number] Transcribed By: Self Edit Transcribed Date: 07/10/2024 14:07 ET us Aye [facility] [place] PROCEDURES Final Resul [...] 4:18 PM EST [facility] Coronavirus 229E Not Detected Not Detected LAB MICROBIOLOGY METHOD 07/08/2024 4:18 PM [facility] Coronavirus HKU1 Not Detected Not Detected LAB MICROBIOLOGY METHOD 07/08/2024 4:18 PM [facility] Coronavirus OC43 Not Detected Not Detected LAB MICROBIOLOGY METHOD 07/08/2024 4:18 PM [facility] Coronavirus NL63 Not Detected Not Detected LAB MICROBIOLOGY METHOD 07/08/2024 4:18 PM [facility] Parainfluenza Virus 1 Not Detected Not Detected LAB MICROBIOLOGY METHOD 07/08/2024 4:18 PM [facility] Parainfluenza Virus 2 Not Detected Not Detected LAB MICROBIOLOGY METHOD 07/08/2024 4:18 PM [facility] Parainfluenza Virus 3 Not Detected Not Detected LAB MICROBIOLOGY METHOD 07/08/2024 4:18 PM [facility] Parainfluenza Virus 4 Not Detected Not Detected LAB MICROBIOLOGY METHOD 07/08/2024 4:18 PM EST [facility] RSV PCR Not Detected Not Detected LAB MICROBIOLOGY METHOD 07/08/2024 4:18 PM EST [facility] Human Metapneumovirus A and [...] Detected LAB MICROBIOLOGY METHOD 07/08/2024 4:18 PM [facility] Chlamydia pneumoniae Not Detected Not Detected LAB MICROBIOLOGY METHOD 07/08/2024 4:18 PM [facility] SARS COV-2 Not Detected Not Detected LAB MICROBIOLOGY METHOD 07/08/2024 4:18 PM [facility] Swab Both anterior nares / Unknown Non-blood Collection / Unknown 07/08/2024 2:59 PM EST 07/08/2024 3:15 PM EST [facility] - 07/08/2024 4:18 PM EST Testing was performed using the i-Nalysise Respiratory Pathogen PCR Assay. All results must [...] Final Result [facility] [address] [place] [address], [place] [phone] * XR Chest 2 Views (07/08/2024 2:01 PM EST) Anatomical Region Laterality Modality Body Radiographic Jennifer ging 07/08/2024 2:06 PM EST Impressions 07/08/2024 2:07 PM EST No acute findings. -------- FINAL REPORT -------- Dictated By: Henrique Bray Dictated Date: 07/08/2024 14:06 ET Assigned Physician: Henrique Bray Reviewed and Electronically Signed By: Henrique Bray Signed Date: 07/08/2024 14:07 ET Workstation ID: [id number] Transcribed By: Self Edit Transcribed Date: 07/08/2024 [...] Signed Date: 07/08/2024 14:07 ET Workstation ID: [id number] Transcribed By: Self Edit Transcribed Date: 07/08/2024 14:06 ET us Jj Wolfe MD IMG XR PROCEDURES Final R esult * (ABNORMAL) Troponin I high sensitivity (07/08/2024 1:18 PM EST) Only the most recent of2 resultswithin the time period is included. [facility] High Sensitivity Troponin I 81(H) <=54 ng/L LAB CHEMISTRY METHOD 07/08/2024 2:17 PM EST [facility] Blood Venous blood specimen / Unknown Venipuncture / Unknown 07/08/2024 1:18 PM EST 07/08/2024 1:34 PM EST [facility] - 07/08/2024 2:17 PM EST High levels of biotin in samples may falsely decrease hsTroponin values. ??Use caution when interpreting hsTroponin results in patients taking biotin who exhibit renal impairment (eGFR <60) or in patients taking more than 20 mg/day of biotin. Jj Wolfe MD LAB BLOOD ORDERABLES [place] l Result [facility] [address] [place] [address], [place] [phone] * (ABNORMAL) Urinalysis with reflex microscopic and culture (07/08/2024 12:59 PM EST) [facility] Specific Dickey Urine 1.020 1.003 - 1.030 LAB URINALYSIS - AUTOMATED METHOD 07/08/2024 1:21 PM [facility] pH, Urine 5.5 5.0 - 8.0 pH LAB URINALYSIS - AUTOMATED METHOD 07/08/2024 1:21 PM [facility] Leukocytes, Urine Negative Negative LAB URINALYSIS - AUTOMATED METHOD 07/08/2024 1:21 PM [facility] Nitrite, Urine Negative Negative LAB URINALYSIS - AUTOMATED METHOD 07/08/2024 1:21 PM [facility] Protein, Urine 100(A) <=Trace mg/dL LAB URINALYSIS - AUTOMATED METHOD 07/08/2024 1:21 PM [facility] Glucose, Urine 500(A) Negative mg/dL LAB URINALYSIS - AUTOMATED METHOD 07/08/2024 1:21 PM [facility] Ketones, Urine Negative Negative mg/dL LAB URINALYSIS - AUTOMATED METHOD 07/08/2024 1:21 PM [facility] Urobilinogen, Urine 0.2 0.2 - 1.0 mg/dL LAB URINALYSIS - AUTOMATED METHOD 07/08/2024 1:21 PM [facility] Bilirubin, Urine Negative Negative LAB URINALYSIS - AUTOMATED METHOD 07/08/2024 1:21 PM [facility] Blood, Urine Large(A) Negative LAB URINALYSIS - AUTOMATED METHOD 07/08/2024 1:21 PM [facility] RBC, Urine 21.6(H) 0 - 4 /HPF LAB URINALYSIS - AUTOMATED METHOD 07/08/2024 1:21 PM [facility] WBC, Urine 7.3(H) 0 - 4 /HPF LAB URINALYSIS - AUTOMATED METHOD 07/08/2024 1:21 PM [facility] Squamous Epithelial, Urine 30 0 - 60 /LPF LAB URINALYSIS - AUTOMATED METHOD 07/08/2024 1:21 PM [facility] Bacteria, Urine Negative Negative /HPF LAB URINALYSIS - AUTOMATED METHOD 07/08/2024 1:21 PM [facility] Hyaline Casts, Urine 1.7 0 - 3 /LPF LAB URINALYSIS - AUTOMATED METHOD 07/08/2024 1:21 PM [facility] Urine Urine specimen obtained by clean catch procedure / Unknown Non-blood Collection / Unknown 07/08/2024 12:59 PM EST 07/08/2024 1:11 PM EST Jj Wolfe MD LAB URINE ORDERABLES [place] l Result Performing Organization Address [facility]/ZIP Co de Phone Number [facility] [address] [place] [address], [place] [phone] * Culture urine (07/08/2024 12:59 PM EST) Culture, Urine No growth 07/09/2024 10:44 AM EST [facility] Urine Urine specimen obtained by clean catch procedure / Unknown Non-blood Collection / Unknown 07/08/2024 12:59 PM EST 07/08/2024 1:21 PM EST Jj Wolfe MD LAB MICROBIOLOGY - GENERA L ORDERABLES Final Result Performing Organization Address [facility] Co de Phone Number [facility] [address] [place] [address], [place] [phone] * CT Cervical Spine wo Contrast (07/08/2024 [...] Signed Date: 07/08/2024 12:27 ET Workstation ID: [id number] Transcribed By: Self Edit Transcribed Date: 07/08/2024 [...] Signed Date: 07/08/2024 12:27 ET Workstation ID: [id number] Transcribed By: Self Edit Transcribed Date: 07/08/2024 [...] Signed Date: 07/08/2024 12:23 ET Workstation ID: [id number] Transcribed By: Self Edit Transcribed Date: 07/08/2024 [...] Signed Date: 07/08/2024 12:23 ET Workstation ID: [id number] Transcribed By: Self Edit Transcribed Date: 07/08/2024 12:22 ET Raya HEDRICK [facility] CT PROCEDURES [place] l Result * (ABNORMAL) Iron and TIBC (07/08/2024 11:10 AM EST) Only the most recent of2 resultswithin the time period is included. Iron 20(L) 40 - 150 mcg/dL LAB CHEMISTRY METHOD 07/08/2024 3:44 PM [facility] Comment:Hemolysis present TIBC 186(L) 250 - 450 mcg/dL LAB CHEMISTRY METHOD 07/08/2024 3:44 PM [facility] Iron Saturation 11(L) 15 - 50 % LAB CHEMISTRY METHOD 07/08/2024 3:44 PM [facility] Blood Venous blood specimen / Unknown Venipuncture / Unknown 07/08/2024 11:10 AM EST 07/08/2024 11:42 AM EST Wayne Donahue MD LAB BLOOD ORDERABLES Final Re sult [facility] [address] [place] [address], * (ABNORMAL) Reticulocyte count (07/08/2024 11:10 AM EST) [facility] Retic Ct Abs 0.050 0.030 - 0.090 M/mcL LAB HEMETOLOGY METHOD 07/08/2024 2:52 PM [facility] Retic Ct Pct 1.4 0.7 - 1.7 % LAB HEMETOLOGY METHOD 07/08/2024 2:52 PM [facility] Immature Retic Fract 24.5(H) 2.3 - 15.9 % LAB HEMETOLOGY METHOD 07/08/2024 2:52 PM [facility] Reticulocyte Hemoglobin 22.5(L) >29.0 pcg LAB HEMETOLOGY METHOD 07/08/2024 2:52 PM [facility] Blood Venous blood specimen / Unknown Venipuncture / Unknown 07/08/2024 11:10 AM EST 07/08/2024 11:42 AM EST us Wayne Donahue MD LAB BLOOD ORDERABLES Final Re sult Performing Organization Address [facility] de Phone Number [facility] [address] [place] [address], [place] [phone] * (ABNORMAL) Thyroid stimulating hormone (07/08/2024 11:10 AM EST) [facility] TSH 4.50(H) 0.40 - 4.00 mcIU/mL LAB CHEMISTRY METHOD 07/08/2024 3:31 PM EST [facility] Blood Venous blood specimen / Unknown Venipuncture / Unknown 07/08/2024 11:10 AM EST 07/08/2024 11:42 AM EST us Wayne Donahue MD LAB BLOOD ORDERABLES Final Re sult Performing Organization Address [facility] de Phone Number [facility] [address] [place] [address], [place] [phone] * (ABNORMAL) Osmolality (07/08/2024 11:10 AM EST) [facility] Osmolality Iván 307(H) 280 - 300 mOsm/kg LAB CHEMISTRY METHOD 07/08/2024 6:51 PM EST [facility] Blood Venous blood specimen / Unknown Venipuncture / Unknown 07/08/2024 11:10 AM EST 07/08/2024 11:42 AM EST us Wayne Donahue MD LAB BLOOD ORDERABLES Final Re sult Performing Organization Address [facility] de Phone Number [facility] [address] [place] [address], [place] [phone] * B-type natriuretic peptide (07/08/2024 11:10 AM EST) [facility] BNP 86 <=100 pcg/mL LAB CHEMISTRY METHOD 07/08/2024 12:26 PM EST [facility] Blood Venous blood specimen / Unknown Venipuncture / Unknown 07/08/2024 11:10 AM EST 07/08/2024 11:42 AM EST us Jj Wolfe MD LAB BLOOD ORDERABLES [place] l Result Performing Organization Address [facility]/ZIP Co de Phone Number [facility] [address] [place] [address], [place] [phone] * (ABNORMAL) Haptoglobin (07/08/2024 11:10 AM EST) Haptoglobin 570(H) 16 - 200 mg/dL LAB CHEMISTRY METHOD 07/08/2024 3:44 PM EST [facility] Blood Venous blood specimen / Unknown Venipuncture / Unknown 07/08/2024 11:10 AM EST 07/08/2024 11:42 AM EST us Wayne Donahue MD LAB BLOOD ORDERABLES Final Re sult Performing Organization Address [facility]/ZIP Co de Phone Number [facility] [address] [place] [address], [place] [phone] * (ABNORMAL) Folate (07/08/2024 11:10 AM EST) Folate >20.0(H) 2.8 - 17.0 ng/ml LAB CHEMISTRY METHOD 07/08/2024 3:51 PM EST [facility] Blood Venous blood specimen / Unknown Venipuncture / Unknown 07/08/2024 11:10 AM EST 07/08/2024 11:42 AM EST us Wayne Donahue MD LAB BLOOD ORDERABLES Final Re sult [facility] [address] [place] [address], [place] [phone] * (ABNORMAL) Ferritin (07/08/2024 11:10 AM EST) Only the most recent of2 resultswithin the time period is included. [facility] Ferritin 708(H) 8 - 252 ng/mL LAB CHEMISTRY METHOD 07/08/2024 3:51 PM EST [facility] Blood Venous blood specimen / Unknown Venipuncture / Unknown 07/08/2024 11:10 AM EST 07/08/2024 11:42 AM EST us Wayne Donahue MD LAB BLOOD ORDERABLES Final Re sult Performing Organization Address City/[facility]/ZIP Co de Phone Number [facility] [address] [place] [address], [place] [phone] * Vitamin B12 (07/08/2024 11:10 AM EST) [facility] Vitamin B-12 384 250 - 900 pcg/mL LAB CHEMISTRY METHOD 07/08/2024 3:51 PM EST [facility] Blood Venous blood specimen / Unknown Venipuncture / Unknown 07/08/2024 11:10 AM EST 07/08/2024 11:42 AM EST us Wayne Donahue MD LAB BLOOD ORDERABLES Final Re sult Performing Organization Address City/[facility]/ZIP Co de Phone Number [facility] [address] [place] [address], [place] [phone] * (ABNORMAL) Creatine kinase and CKMB (07/08/2024 11:10 AM EST) [facility] Total CK 649(H) 22 - 269 unit/L [...] ORDERABLES Final Re sult Performing Organization Address City/[facility]/ZIP Co de Phone Number [facility] [address] [place] [address], [place] [phone] * Cortisol (07/08/2024 11:10 AM EST) Cortisol [...] Re sult Performing Organization Address [facility]/ZIP Co de Phone Number [facility] [address] [place] [address], [place] [phone] * (ABNORMAL) Comprehensive metabolic panel (07/08/2024 11:10 AM EST) Sodium 126(L) 133 - 145 mmol/L LAB CHEMISTRY METHOD 07/08/2024 12:54 PM EST [facility] Potassium 4.2 3.5 - 5.5 mmol/L LAB CHEMISTRY METHOD 07/08/2024 12:54 PM [facility] Comment:Hemolysis present Chloride 93(L) 96 - 110 mmol/L LAB CHEMISTRY METHOD 07/08/2024 12:54 PM [facility] CO2 21 21 - 32 mmol/L LAB CHEMISTRY METHOD 07/08/2024 12:54 PM [facility] Anion Gap 12(H) 3 - 11 LAB CHEMISTRY METHOD 07/08/2024 12:54 PM [facility] Glucose 265(H) 70 - 100 mg/dL LAB CHEMISTRY METHOD 07/08/2024 12:54 PM [facility] BUN 59(H) 5 - 25 mg/dL LAB CHEMISTRY METHOD 07/08/2024 12:54 PM [facility] Comment:Results verified by repeat testing Creatinine 4.10(H) 0.50 - 1.10 mg/dL LAB CHEMISTRY METHOD 07/08/2024 12:54 PM [facility] Comment:Results verified by repeat testing eGFR 10(L) >=60 mL/min/1. 73m2 LAB CHEMISTRY METHOD 07/08/2024 12:54 PM [facility] Comment:Calculation based on the??Chronic Kidney Disease Epidemiology Collaboration (CKD-EPI) equation refit??without adjustment for race. BUN/Creatinine Ratio 14.4 LAB CHEMISTRY METHOD 07/08/2024 12:54 PM [facility] Calcium 10.6(H) 8.5 - 10.5 mg/dL LAB CHEMISTRY METHOD 07/08/2024 12:54 PM [facility] AST (SGOT) 57(H) 10 - 42 unit/L LAB CHEMISTRY METHOD 07/08/2024 12:54 PM [facility] Comment:Hemolysis present ALT (SGPT) 39 10 - 60 unit/L LAB CHEMISTRY METHOD 07/08/2024 12:54 PM [facility] Alkaline Phosphatase 149(H) [...] l Result [facility] [address] [place] [address], [place] [phone] * ECG 12 lead (07/08/2024 10:46 AM EST) Only the most recent of2 resultswithin the time period is included. Ventricular Rate ECG 94 BPM GEMUSE Atrial Rate 94 BPM GEMUSE P-R Interval 196 ms GEMUSE QRS Duration 118 ms GEMUSE Q-T Interval 354 ms GEMUSE QTc 442 ms GEMUSE P Wave [place] 79 degrees GEMUSE R [place] 15 degrees GEMUSE T [place] 4 degrees GEMUSE ECG Interpretation Sinus rhythm [...] to direct LDL (05/31/2024 9:22 AM EST) [facility] Signature Cholesterol 131 0 - 200 mg/dL LAB CHEMISTRY METHOD 05/31/2024 12:51 PM EST [facility] Triglycerides 113 0 - 150 mg/dL LAB CHEMISTRY METHOD 05/31/2024 12:51 PM EST [facility] HDL 60 >=40 mg/dL LAB CHEMISTRY METHOD 05/31/2024 12:51 PM [facility] LDL Calculated 48 0 - 100 mg/dL LAB CHEMISTRY METHOD 05/31/2024 12:51 PM EST [facility] VLDL Cholesterol Hunter 22.6 mg/dL LAB CHEMISTRY METHOD 05/31/2024 12:51 PM EST [facility] Non HDL Chol. (LDL+VLDL) 71 <145 mg/dL LAB CHEMISTRY METHOD 05/31/2024 12:51 PM [facility] Chol/HDL Ratio 2.2 0.0 - 4.4 LAB CHEMISTRY METHOD 05/31/2024 12:51 PM [facility] Blood Venous blood specimen / Unknown Venipuncture / Unknown 05/31/2024 9:22 AM EST 05/31/2024 9:22 AM EST us Kayleigh Pedraza NP LAB BLOOD ORDERABLES Final Resul t [facility] [address] [place] [address], * (ABNORMAL) Hemoglobin A1c (05/31/2024 9:22 AM [...] HEDRICK LAB BLOOD ORDERABLES Final Resul t [facility] [address] [place] [address], * [facility] DEXA AXIAL SKELETON (04/15/2018 10:29 AM EDT) Anatomical Region Laterality Modality Mammography 04/15/2018 9:39 AM EDT Narrative 04/15/2018 10:29 AM EDT [facility] Diagnostic Imaging Department [address] [place] [address] Patient: ??CONTRERAS,ANA A ?/Age/Sex: 1945 - 73 - F Unit#: ??[id number] ? Location/Status: ??SPDIMAM/REG CLI ? Mnemonic/Ordering Site: [...] probability of hip fracture of 2.2%. Code 15581 Dictating Physician: ??JAILYN BARAHONA MD Electronically Signed by: ??JAILYN BARAHONA MD Dic Date/Time: ??04/15/18 1028 Sign date/Time: ??04/15/18 1029 Procedure Note Jailyn Barahona MD - 06/17/2022 [facility] Diagnostic Imaging Department [address] [place], [place] [id number] Patient: ANA CONTRERAS /Age/Sex: 1945 - 73 - F Unit#: [id number] Location/Status: [facility] [facility] Mnemonic/Ordering Site: MAMDEXAAX/SPMAM Ordering Physician: JOSE SANTIZO MD [facility] Dexa Axial Skeleton - 04/15/18 - [...] density of the femurs bilaterally is 0.854 gm/gy2uttxy is 85% of that of young normals [...] probability of hip fracture of 2.2%. Code 48340 Dictating Physician: JAILYN BARAHONA MD Electronically Signed by: JAILYN BARAHONA MD Dic Date/Time: 04/15/18 1028 Sign date/Time: 04/15/18 1029 Jose Santizo MD IM BI PROCEDURES Final Result from Last 3 Months or Most Recently Relevant to Health Maintenance Additional Health Concerns Infection Onset Date Last Indicated Tuberculosis Rule-Out 08/05/2024 08/05/2024 Insurance [employer] MEDICARE Advance Directives Documents on File Type Date Recorded Patient Machine Lay Out Worker Expl anation Advance Directives and Living [...] Second Alternate Health Care Agent Care Teams Aircraft Instrument Tester Relationship Specialty Start Date End Date Eloisa Vázquez DO [address] [place] [address] PCP - General 04/12/24
[2024-08-29 07:40] LABS: Anion Gap 15 (12-20); Blood Urea Nitrogen 48 mg/dL (9-16); Carbon Dioxide 23 mmol/L (22-29); Chloride 103 mmol/L (96-108); Estimated Glomerular Filt Rate 12; Glucose Random 148 mg/dL (60-115); Sodium 138 mmol/L (135-145)
[2024-08-29 08:08] LABS: Potassium 2.7 mmol/L (3.3-5.1)
== END 2024-08-29 06:22 | disposition home or self-care (01) ==
LOC: HO.MMNH1L 06:21
PROVIDERS: Visit Provider Family Medicine
DX: E11.9 Type 2 diabetes mellitus without complications (principal)
CPT/HCPCS: 36415; 80048; 85025

== ENCOUNTER 2024-09-05 07:10 | Outpatient (REF) | payer MEDICARE, SELFPAY ==
[2024-09-05 06:25] LABS: MANUAL DIFF FLAG NO
--- OUTSIDE RECORDS SUMMARY | 2024-09-05 07:13 | XMS_ITS | Encounter Summary ---
Author Organization [facility] Address [address] [address] Phone Care Team Providers Care Salvage Mend Worker Name Role Phone BrigidoeverardoMarieEloisa Primary Care Provider Reason for Referral * Outpatient Services (Routine) - Closed Specialty Diagnoses / Procedures Referred By Conthector t Referred To Contact Diagnoses ANCA associated vasculitis (HCC) 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) Procedures Rituxan Infusion Orders Anthony Norton MD [address] [address] Phone: tel: fax: Referral ID Status Reason Start Date Expiration Date Visits Re quested Visits Authorized [id number] Closed 08/08/2024 08/08/2025 1 1 Encounter Details Date Type Department Care Team (Latest Contact Info) Description 08/08/2024 Office Communication [facility] [address] [address] Anthony Norton MD [address] [address] ANCA associated vasculitis (HCC) (Primary [...] Need to schedule IV rituxin--she is at [facility] She needs infusion for 08/12/24--I will put orde in our EPIC but u will need to cntact [facility] tocoordinate documented in this encounter Plan of Treatment Not on file documented as of this encounter Visit Diagnoses Diagnosis ANCA associated vasculitis (HCC)- Primary 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) 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 documented in this encounter Care Teams Salvage Mend Worker Relationship Specialty Start Date End Date Eloisa Vázquez [address] [place] [address] PCP - General Internal Medicine 07/11/24 documented as of this encounter
--- OUTSIDE RECORDS SUMMARY | 2024-09-05 07:13 | XMS_ITS | Encounter Summary ---
Author Organization [facility] Address [address] [place] [address] Care Team Providers Care Lens Fabricating Machine Tender Name Role Phone Eloisa Vázquez DO Primary Care Provider [phone] Reason for Visit * Reason Comments Follow-up Encounter Details Date Type Department Care Team (Late st Contact Info) Description 08/22/20[address] [place] [address] Haley Andrews [facility] Social History Tobacco Use Types Packs/Day Years [...] area.Patient reported that she was admitted to [facility] for the past two weeks after falling in her house.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 TIFFANY validated patient's feeling of stress. Bessy Andrews LMSW Door Builder . [facility] documented in this encounter Plan of Treatment Upcoming Encounters Date Type Department Care Team (Late st Contact Info) Description 09/05/2024 10:00 AM EDT Office Visit Endocrinology - [place] [address] [place] [address] Kathy Michelle PA 444 [place] [address] 10/06/2024 1:15 PM EDT Office Visit Internal Medicine - [facility] 305 [place] [address] Eloisa Vázquez DO 305 [place] [address] 11/11/2024 11:00 AM EDT Ancillary Procedure [facility] 101 300 [facility] 101 [place] [address] 11/14/2024 11:30 AM EDT Appointment [facility] CT Scan 271 [place] [address] 12/01/2024 10:00 AM EDT Office Visit Thoracic Surgery - [place] [address] [address] Cecily Montez MD [address] [address] documented as of this encounter Visit Diagnoses Not on filedocumented in this encounter Additional Health Concerns Infection Onset Date Last Indicated Resolved Time Tuberculosis Rule-Out 08/05/2024 08/05/20242024 7:04 PM EST documented as of this encounter Care Teams Lens Fabricating Machine Tender Relationship Specialty Start Date End Date Eloisa Vázquez DO 305 [place] [address] PCP - General 04/12/24 documented as of this encounter
--- OUTSIDE RECORDS SUMMARY | 2024-09-05 07:13 | XMS_ITS | Encounter Summary ---
Author Organization [facility] Address [address] [address] Phone Care Team Providers Care State Pilot Name Role Phone Eloisa Vázquez Primary Care Provider Encounter Details Date Type Department Care Team (Late st Contact Info) Description 08/26/2024 Treatment [facility]. [address] [address] Boni Pierce MD [address] [address] Social History Tobacco Use Types [...] kidney injury requiring renal replacement therapy. Attending Bird Tender: BONI PIERCE MD Dialysis Location: [facility] Schedule: Shift: 1 ADEQUACY ASSESSMENT Kt/V, [...] on filedocumented in this encounter Care Teams State Pilot Relationship Specialty Start Date End Date Marie Vázquezmana [address] [place] [address] PCP - General Internal Medicine 07/11/24 documented as of this encounter
--- OUTSIDE RECORDS SUMMARY | 2024-09-05 07:13 | XMS_ITS | Encounter Summary ---
Author Organization [facility] Address [address] [place] [address] Care Team Providers Care Conservation Planner Name Role Phone Eloisa Vázquez DO Primary Care Provider [phone] Reason for Visit * Consultation (Routine) - Closed Specialty Diagnoses / Procedures Referred By Daksha godoy Referred To Contact Gastroenterology Diagnoses History of cancer of unknown primary site Iron deficiency anemia, unspecified iron deficiency anemia type Eloisa Vázquez DO [address] [place] [address] Phone: tel: fax: Gastroenterology - [address] [place] [address] Phone: tel: fax: Referral ID Status Reason Start Date Expiration Date V isits Requested Visits Authorized [id number] Closed Specialty Services Required 06/01/2024 06/01/2025 1 1 Encounter Details Date Type Department Care Team ([facility] st Contact Info) Description 08/23/2024 3:00 PM EST Office Visit Gastroenterology - [address] [facility] 419 [place] [address] Josiane Smith, JUNITO 299 [facility] 419 [place] [address] Iron deficiency anemia, unspecified iron deficiency anemia [...] She was transported here via EMT on [place] for this visit. Ms. Contreras has multiple [...] in the patient's care. Board Certified Gastroenterology [facility] Medical [facility] [phone] 299 [facility]. [facility] [address] [place] [address] [email or web address] Josiane Smith NP documented in this encounter Plan of Treatment Upcoming Encounters Date Type Department Care Team (Late st Contact Info) Description 09/05/2024 10:00 AM EDT Office Visit Endocrinology - [place] 444 [place] [address] Kathy Michelle PA 444 [place] [address] 10/06/2024 1:15 PM EDT Office Visit Internal Medicine - [place] [address] [place] [address] Eloisa Vázquez DO [address] [place] [address] 11/11/2024 11:00 AM EDT Ancillary Procedure [facility] - [address] [place] [address] 11/14/2024 11:30 AM EDT Appointment [facility] CT Scan 271 [place] [address] 12/01/2024 10:00 AM EDT Office Visit Thoracic Surgery - [place] 299 [facility] [address] [place] [address] Cecily Montez MD 299 [facility] [address] [place] [address] documented as of this encounter Visit Diagnoses [...] documented as of this encounter Care Teams Conservation Planner Relationship Specialty Start Date End Date Eloisa Vázquez DO [address] [place] [address] PCP - General 04/12/24 documented as of this encounter
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
--- OUTSIDE RECORDS SUMMARY | 2024-09-05 07:13 | XMS_ITS | Clinical Summary ---
Author Organization [facility] Address [address] [place] [address] Care Team Providers Care Intensive Care Unit Nurse Name Role Phone GurpreetEloisa Primary Care Provider [phone] Allergies No known active allergies Medications Medication [...] age to complete this topic Care Teams Intensive Care Unit Nurse Relationship Specialty Start Date End Date Eloisa Vázquez DO [address] [place] [address] PCP - General Internal Medicine 04/07/24
--- OUTSIDE RECORDS SUMMARY | 2024-09-05 07:13 | XMS_ITS | Encounter Summary ---
Author Organization [facility] Address [address] [address] Phone Care Team Providers Care Hospital Receptionist Name Role Phone Eloisa Vázquez Primary Care Provider [phone] Encounter Details Date Type Department Care Team (Late st Contact Info) Description 08/23/2024 Treatment [facility]. [address] [address] Rosalie Golden MD [address] [address] Social History Tobacco Use Types [...] kidney injury requiring renal replacement therapy. Attending Guide Dog Instructor: BONI PIERCE MD Dialysis Location: [facility] Schedule: Shift: 1 OVERVIEW Patient is [...] on filedocumented in this encounter Care Teams Hospital Receptionist Relationship Specialty Start Date End Date Eloisa Vázquez [address] [place] [address] PCP - General Internal Medicine 07/11/24 documented as of this encounter
--- OUTSIDE RECORDS SUMMARY | 2024-09-05 07:13 | XMS_ITS | Encounter Summary ---
Author Organization [facility] Address [address] [address] Phone Care Team Providers Care Director Employment Name Role Phone Eloisa Vázquez Primary Care Provider [phone] Encounter Details Date Type Department Care Team (Late st Contact Info) Description 09/02/2024 Treatment [facility]. [address] [address] Boni Pierce MD [address] [address] Social History Tobacco Use Types Packs/Day Years Used Date Smoking Tobacco: Never Assessed Comments Unknown Sex and Gender Information Value Date Recorded Sex Assigned at Not on file Legal Sex Female 10:11 AM EST Gender Identity Not on file Sexual Orientation Not on file documented as of this encounter Miscellaneous Notes * Dialysis Note - Boni Pierce MD - 09/02/2024 12:00 AM EST Patient: Ana Contreras : 1945 Note Type: Dialysis Rounds-CLAUDIA Telehealth Service Date: 09/02/2024 Telehealth encounter using audiovisual technology, performed according to state requirements. Appropriate patient consent obtained. This patient was personally seen during dialysis for the management of acute kidney injury requiring renal replacement therapy. Attending Odd Shoe Examiner: BONI PIERCE MD Dialysis Location: [facility] Schedule: Shift: 1 ADEQUACY ASSESSMENT Kt/V, Natural Log 1.63 (08/08/24) UREA REDUCTION RATIO (%) 77 (08/08/24) BUN 46 (08/29/24) 50 (08/26/24) 43 (08/17/24) BUN Post Dialysis 14 (08/08/24) Creatinine 3.54 (08/29/24) 3.39 (08/26/24) 4.15 (08/17/24) Bicarbonate (CO2) 25 (08/29/24) 24 (08/26/24) 28 (08/17/24) Sodium 141 (08/29/24) 137 (08/26/24) 140 (08/17/24) Urine Volume 300 (08/17/24) Creatinine renal clearance 1.3 (08/17/24) ANEMIA ASSESSMENT Hgb 8.3 (08/26/24) 8.0 (08/17/24) 8.2 (08/08/24) Iron Saturation (TSat) 19 (08/08/24) Ferritin 1,209 (08/08/24) Iron 34 (08/08/24) TIBC 176 (08/08/24) MCV 87.0 (08/08/24) Platelets 181 (08/08/24) BMM ASSESSMENT Calcium 8.3 08/29/24 7.9 08/26/24 8.6 08/17/24 Calcium, Adjusted Total 9.4 08/08/24 Phosphorus, Serum 4.4 08/08/24 Ca*PO4 38.7 08/08/24 PTH, Intact 144 08/08/24 Vitamin D, 25-Hydroxy 38 08/08/24 Magnesium 1.9 08/08/24 Alkaline Phosphatase 76 08/08/24 Aluminum 4 08/08/24 NUTRITION ASSESSMENT Albumin 3.2 08/08/24 Potassium 2.8 08/29/24 3.1 08/26/24 3.9 08/17/24 Hemoglobin A1C 6.3 08/08/24 ADDITIONAL LABS White Blood Cells 8.5 (08/08/24) Cholesterol 170 (08/08/24) HDL 60 (08/08/24) LDL-Calc 80 (08/08/24) Triglycerides 149 (08/08/24) Hep B Surface Antibody <4 (08/08/24) Uric Acid 5.0 (08/08/24) ADDITIONAL COMMENT COMMENTS: 08/08/24 Getting rec from [facility] 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 08/17/24 closely monitoring for recovery 08/26/24 s/p rituxin infusion 09/02/24 track Scr and reoeat 24 hr urune ordered to look for renal recivert 07/28/24 Need to Rrange 2 nd dose for 08/12 Watch for renal recovery Signed by: BONI PIERCE MD on 09/02/2024 at 10:12:06 AM documented in this encounter Plan of Treatment Not on file documented as of this encounter Visit Diagnoses Not on filedocumented in this encounter Care Teams Director Employment Relationship Specialty Start Date End Date Marie Vázquezmana [address] [place] [address] PCP - General Internal Medicine 07/11/24 documented as of this encounter
--- OUTSIDE RECORDS SUMMARY | 2024-09-05 07:13 | XMS_ITS | Encounter Summary ---
Author Organization [facility] Address [address] [address] Phone Care Team Providers Care Middleware Consultant Name Role Phone Eloisa Vázquez Primary Care Provider [phone] Encounter Details Date Type Department Care Team (Late st Contact Info) Description 08/17/2024 Treatment [facility]. [address] [address] Boni Pierce MD [address] [address] Social History Tobacco Use Types [...] kidney injury requiring renal replacement therapy. Attending Hotel Operation Manager: BONI PIERCE MD Dialysis Location: [facility] Schedule: Shift: 1 ADEQUACY ASSESSMENT Kt/V, [...] on filedocumented in this encounter Care Teams Middleware Consultant Relationship Specialty Start Date End Date Eloisa Vázquez [address] [place] [address] PCP - General Internal Medicine 07/11/24 documented as of this encounter
--- OUTSIDE RECORDS SUMMARY | 2024-09-05 07:13 | XMS_ITS | Encounter Summary ---
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 Chencho Wayne MD [address] [place] [address] Phone: tel: fax: [facility] 271 [facility] [address] [place] [address] Phone: tel: fax: Referral ID Status Reason Start Date Expiration Date V isits Requested Visits Authorized [id number] Authorized 08/18/2024 08/18/2025 1 6 Encounter Details Date Type Department Care Team (Latest Contact Info) Description 08/22/2024 8:30 AM EST - 08/22/2024 11:59 PM EST Hospital Encounter [facility] [address] [place] [address] Chencho Wayne MD [address] [place] [address] Crescentic glomerulonephritis (Primary Dx); Cresentic [...] not crush, chew, or split. 08/06/2024 5 predniSONE (DELTASONE) 20 mg tablet [...] 1 (one) time each day. 08/06/2024 5 polyethylene glycol (MIRALAX) 17 gram packet Take 17 g by mouth 1 (one) time each day if needed for constipation. 08/05/2024 5 documented as of this encounter Discharge Disposition Disposition Code Departure Means Destination Home or Self Care documented in this encounter Progress Notes * Pau Lopez RN - 08/22/2024 8:30 AM EST Ana arrives via ambulance stretcher from [facility]. She had lengthy hospital stay after well [...] receivefirst dose on 07/28/24 as inpatient at [facility]. New Patient Assessment Psychosocial needs: - Assessed/Monitored for depression, anxiety, support systems, and coping Health care proxy: discussed, proxy on file - daughter Dennise Nj is HCP Living arrangement: alone and currently residing at [facility] Suicidal Ideation: None Reported 0921 - [...] 10:00 AM EDT Office Visit Endocrinology - [place] [address] [place] [address] Kathy Michelle PA [address] [place] [address] 10/06/2024 1:15 PM EDT Office Visit Internal Medicine - [place] [address] [place] [address] Eloisa Vázquez DO [address] [place] [address] 11/11/2024 11:00 AM EDT Ancillary Procedure [facility] - [address] [place] [address] [phone] 11/14/2024 11:30 AM EDT Appointment [facility] CT Scan 271 [place] [phone] 12/01/2024 10:00 AM EDT Office Visit Thoracic Surgery - [place] 299 [facility] 410 [place] [address] Cecily Montez MD [address] [facility] 410 [place] [address] documented as of this encounter Visit Diagnoses [...] documented as of this encounter Care Teams Otr Company Driver Relationship Specialty Start Date End Date Eloisa Vázquez DO [address] [facility] [place] [address] PCP - General 04/12/24 documented as of this encounter
--- OUTSIDE RECORDS SUMMARY | 2024-09-05 07:15 | XMS_ITS | Encounter Summary ---
Author Organization [facility] Address [address] [place] [address] Care Team Providers Care Insurance Special Agent Name Role Phone Eloisa Vázquez DO Primary Care Provider [phone] Reason for Visit * Reason Comments Fall * Auth/Cert Specialty Diagnoses / Procedures Referred By Contac t Referred To Contact Diagnoses Acute encephalopathy Procedures . Wayne Donahue MD [address] [place] [phone] Phone: tel: fax: [facility] Emergency [address] [place] [address] Phone: tel: Referral ID Status Reason Start Date Expiration Date Visits Re quested Visits Authorized [id number] 1 1 Encounter Details Date Type Department Care Team (Late st Contact Info) Description 07/08/2024 10:31 AM EST - 08/06/2024 1:09 PM EST Hospital Encounter [facility] Urology Unit [address] [place] [address] Jj Wolfe MD [address] [place] [address] Wayne Dnoahue MD [address] [place] [address] Maria Alejandra Melendez MD [address] [place] [address] Kwesi Guido MD [address] [place] [phone] Lencho Stuart MD [address] [place] [address] Jonny Mathur MD [address] [place] [phone] Steve Cruz MD [address] [place] [address] Anemia, unspecified type (Primary Dx); Hyponatremia; Acute on chronic renal insufficiency; Acute encephalopathy; Bilateral leg edema; Pulmonary nodule Discharge Disposition: Fdc Facility Social History Tobacco Use Types Packs/Day [...] from the original note were not included. [place] DISCHARGE SUMMARY Patient Information Lebanon A Ben : 1945 [79 y.o.] Admitting [...] was found down on the ground by [facility]. She was unsure the detailsof how [...] will be transferred to the care of [facility] staff for further management of their acute encephalopathy, fall. Hospital course Patient is 79 years old female with past medical history significant for type 2 diabetes, hypertension, chronic kidney disease stage IV, iron deficiency anemia, dyslipidemia, lung nodule brought to the [facility] after wellness check was called to police by her daughter. Patient was foundon the ground unable to get up and was confused. Patient admitted to medical floors for further management of chronic kidney disease, metabolic encephalopathy. # Acute on chronic kidney injury, crescentic glomerulonephritis requiring hemodialysis. -Patient is on hemodialysis Thursday. On prednisone, Bactrim every Thursday. Per instrument assembly supervisor patient's kidney biopsy consistent with crescentic glomerulonephritis. Rituximab given on 07/28/2024. Next dose in 2 weeks. Patient is being followed by instrument assembly supervisor for hemodia lysis. Upon DC continue oral [...] placing orders. Follow-Up Instructions and Recommendations Eloisa Vzáquez DO [address] [facility] [address] Schedule an appointment as soon as possible for a visit in 3 day(s) for transition of care visit, If symptoms worsen, As needed Chencho Wayne MD [address] [place] [address] [facility] [address] Schedule an appointment as soon as possible for a visit in 1 week(s) for kidney failure management [address] [phone] Discharge Procedure Orders Discharge Diet: [...] from the original note were not included. [place] DISCHARGE SUMMARY Patient Information Ana Contreras : [...] was found down on the ground by [facility]. She was unsure the detailsof how [...] will be transferred to the care of [facility] staff for further management of their acute encephalopathy, fall. Hospital course Patient is 79 years old female with past medical history significant for type 2 diabetes, hypertension, chronic kidney disease stage IV, iron deficiency anemia, dyslipidemia, lung nodule brought to the [facility] after wellness check was called to police by her daughter. Patient was foundon the ground unable to get up and was confused. Patient admitted to medical floors for further management of chronic kidney disease, metabolic encephalopathy. # Acute on chronic kidney injury, crescentic glomerulonephritis requiring hemodialysis. -Patient is on hemodialysis Thursday. On prednisone, Bactrim every Thursday. Per instrument assembly supervisor patient's kidney biopsy consistent with crescentic glomerulonephritis. Rituximab given on 07/28/2024. Next dose in 2 weeks. Patient is being followed by instrument assembly supervisor for hemodia lysis. Upon DC continue oral [...] Instructions and Recommendations DO [address] [facility] [address] Schedule an appointment as soon as possible for a visit in 3 day(s) for transition of care visit, If symptoms worsen, As needed Chencho Wayne MD [address] [facility] [phone] Schedule an appointment as soon as possible for a visit in 1 week(s) for kidney failure management [address] [address] Discharge Procedure Orders Discharge Diet: [...] through Care Everywhere. * Diabetes: Renal Diet (Ivorian) documented in this encounter Medications at Time [...] day if needed for constipation. 08/05/2024 5 CALCIUM CARBONATE ORAL Calcium 600mg Take [...] not crush, chew, or split. 08/06/2024 5 sulfamethoxazole-t rimethoprim (BACTRIM DS,SEPTRA DS) 800-160 [...] 2 (two) times a day. 08/06/2024 5 polyethylene glycol (MIRALAX) 17 gram packet Take 17 g by mouth 1 (one) time each day if needed for constipation. 08/05/2024 documented in this encounter Discharge Disposition Disposition Code Departure Means Destination Comment s Fdc Facility documented in this encounter Progress Notes * Jacqulein Davidson RN - 08/06/2024 1:04 PM EST Report given to ems, to transport to [facility]. * Chencho Wayne MD - 08/06/2024 11:15 [...] 0722 Initial Transition Plan Initial Transition Plan Fdc Facility ([facility] [place] Transportation Transportation at discharge [facility] providing transportation [place] What day is the transport expected? 08/06/24 What time is the transport expected? 1300 Final Discharge Disposition Fdc Facility * Katina Machuca RN - 08/06/2024 [...] was found down on the ground by [facility]. She was unsure the detailsof how [...] will be transferred to the care of [facility] staff for further management of their acute encephalopathy, fall. Hospital course Patient is 79 years old female with past medical history significant for type 2 diabetes, hypertension, chronic kidney disease stage IV, iron deficiency anemia, dyslipidemia, lung nodule brought to the [facility] after wellness check was called to police by her daughter. Patient was foundon the ground unable to get up and was confused. Patient admitted to medical floors for further management of chronic kidney disease, metabolic encephalopathy. # Acute on chronic kidney injury, crescentic glomerulonephritis requiring hemodialysis. -Patient is on hemodialysis Thursday. On prednisone, Bactrim every Thursday. Per instrument assembly supervisor patient's kidney biopsy consistent with crescentic glomerulonephritis. Rituximab given on 07/28/2024. Next dose in 2 weeks. Patient is being followed by instrument assembly supervisor for hemodia lysis. Upon DC continue oral [...] 1337 Initial Transition Plan Initial Transition Plan Fdc Facility ([facility] [place] Transportation Transportation at discharge [facility] providing transportation [place] What day is the transport expected? 08/05/24 What time is the transport expected? 1700 Final Discharge Disposition Inpatient Rehab Family in agreement w MARYSE plan. * Nelli Schmidt OT - 08/05/2024 12:30 PM EST Therapy session was attempted for Lebanonnorberto Contreras by Nelli Schmidt OT on 08/05/2024. [...] Ordered 08/05/24 0001 Adult NPO diet Location: [facility]; Diet: NPO- Except for Medications Diet effective midnight Question Answer Comment Location [facility] Diet NPO- Except for Medications 08/04/24 0838 07/11/24 1133 Dietary nutrition supplements Two times daily (BID); [facility]; Diabetic Supplement Continuous Question Answer Comment Frequency Two times daily (BID) Location [facility] Supplements Diabetic Supplement 07/11/24 1132 History of presenting illness: Patient is a 79 y.o. female with a history of Past Medical History: Diagnosis Date Anemia Arthritis Blindness Decreased vision 11/29/2014 DX:Decreased vision Diabetes mellitus, type 2 (CMS/HCC) 02/14/2014 DX:Diabetes mellitus, type 2 (HCC) DVT, lower extremity (CMS/[facility]) LEFT LEG Family history of early CAD [...] or fat depletion Skin: Skin intact per fashion intern Nutrition Diagnosis: Code Type: None Identified Status: [...] 02/14/2014 DX:Diabetes mellitus, type 2 ([facility]) DVT, lower extremity (CMS/HCC) LEFT LEG Family [...] weeks and will be tapered by the instrument assembly supervisor Continue PPI in the outpatient setting if patient is on prednisone Continue Bactrim DS in the outpatient setting thrice weekly (--) as patient is immunosuppressed Lung mass biopsy with Dr. Montez today s/p transfusion yesterday Outpatient HD arranged at [facility] m-w-f 1st shift [phone] on hold since July 21. I have given orders for the patient to start on Thursday Patient for discharge to [facility] Discussed with medical team. Patient to get transfused today From renal standpoint patient can be discharged today or on Thursday The outpatient facility needs to arrange for rituximab infusion on August 11 or at [facility] outpatient infusion-they can touch base with the renal MD [facility] for that shift for orders and dosage Discussed with the medical team/outpatient dialysis nursing staff and field case manager history Chencho Wayne MD * Prisca Goldman PT - 08/05/2024 7:26 AM EST Therapy session was attempted for Ananorberto Contreras by Prisca Goldman PT on 08/05/2024. [...] scan performed as ordered, see I/O's. * tSeve Cruz MD - 08/04/2024 12:21 PM EST Images from the original note were not included. SONYA PROGRESS NOTE Date: 08/04/2024 Author: Steve Cruz MD Patient ID: Ana Contreras is a 79 y.o. female : 1945 MR#: [id number] SUBJECTIVE Subjective Patient seen by the bedside [...] of fentanyl administered during the procedure. Scanner: [employer] [address] Dose reduction technique: AEC [...] Signed Date: 07/22/2024 17:00 ET Workstation ID: [id number] Transcribed By: Self Edit Transcribed Date: 07/22/2024 16:58 ET ASSESSMENT & PLAN Patient is 79 years old female with past medical history significant for type 2 diabetes, hypertension, chronic kidney disease stage IV, iron deficiency anemia, dyslipidemia, lung nodule brought to the [facility] after wellness check was called to police by her daughter. Patient was foundon the ground unable to get up and was confused. Patient admitted to medical floors for further management of chronic kidney disease, metabolic encephalopathy. # Acute on chronic kidney injury, crescentic glomerulonephritis requiring hemodialysis. -Patient is on hemodialysis Thursday. On prednisone, Bactrim every Thursday. Per instrument assembly supervisor patient's kidney biopsy consistent with crescentic glomerulonephritis. Rituximab given on 07/28/2024. Next dose in 2 weeks. Patient is being followed by instrument assembly supervisor for hemodia lysis. # Right upper lobe [...] weeks and will be tapered by the instrument assembly supervisor Continue PPI in the outpatient setting if patient is on prednisone Continue Bactrim DS in the outpatient setting thrice weekly (--) as patient is immunosuppressed Lung mass biopsy with Dr. Montez tomorrow Renal diet Outpatient HD arranged at [facility] m-w-f 1st shift [phone] on hold since July 21. I have given orders for the patient to start on Thursday Patient for discharge to [facility] Discussed with medical team. Patient to get transfused today Will follow chuck shirley team From renal standpoint patient can be discharged tomorrow or on Thursday The outpatient facility needs to arrange for rituximab infusion on August 11 or at [facility] outpatient infusion-they can touch base with the renal MD covering for [place] for that shift for orders and dosage Discussed with the medical team/outpatient dialysis nursing staff and field case manager Chencho Wayne MD * Isidra Florence - 08/04/2024 9:38 AM EST [facility] Physical Therapy Treatment PT Discharge Recommendations: Inpatient rehab facility placement, detention facility placement Equipment Recommended: rolling walker Staff Recommendations for safe patient handling: min/modA transfers/bed mob Precautions Medical Precautions: Fall Risk Safety Interventions: Call chavarria within reach, ID band on, Bed alarm RUE Weight Bearing Status: Full LUE Weight Bearing Status: Full RLE Weight Bearing Status: Full LLE Weight Bearing Status: Full History of Present Illness: Patient is a 79 y.o. female admitted to [facility] on 07/08/2024 with: Patient Active Problem List Diagnosis Hypertension Hyperlipidemia History of cancer of unknown primary site CKD (chronic kidney disease) stage 4, GFR 15-29 ml/min [place] Iron deficiency anemia Impaired renal function Type 2 diabetes mellitus without complication, without long-term current use of insulin ([facility]) Lung mass Pulmonary nodule Fall prevention education [...] week PT Discharge Recommendations Inpatient rehab facility placement;detention facility placement Equipment Recommended rolling walker PT [...] PT Discharge Recommendations: Inpatient rehab facility placement, detention facility placement Equipment Recommended: rolling walker Barriers [...] RN - 08/04/2024 9:17 AM EST This parts data writer received a call from Beth at [facility] where they have had a dialysis STR bed open and are accepting and going for insurance auth. ICC notified provider and will follow for transfer once insurance auth obtained. * Nelli Schmidt, OT - 08/04/2024 8:30 AM EST [facility] Occupational Therapy Treatment Note DATE: July TIME IN: 0830 TIME OUT: 0900 Pt: Ana Contreras 561/561-2 DISCHARGE RECS: Inpatient rehab facility placement, detention facility placement EQUIPMENT RECS: Walker-rolling SAFE PT [...] Complete OT Discharge Recommendations Inpatient rehab facility placement;detention facility placement Equipment Recommended Walker-rolling ADDITIONAL COMMENTS: [...] up Transition Plan Back up Transition plan Fdc Facility Anticipated Discharge Needs Discipline following for SNF placement Co Founder DANITZA: 08/06 Barriers: Accepting SNF w HD, Bronch w lung mass bx re-scheduled 08/05, ability to stand/pivot for family to transport to HD. Plan: ACR vs SNF pending accepting facility with HD and or ability to transport to [facility]. [facility] can only continue to hold OPT HD slot until 08/05. ICC s/w family and updated on [facility] options. Bill [facility] Co Founder, , called [facility] and will attempt to assist with [...] a 79 y.o. female : 1945 MR#: [id number] SUBJECTIVE Subjective Patient seen by the bedside [...] of fentanyl administered during the procedure. Scanner: [employer] [address] Dose reduction technique: AEC [...] Fela Palomo Reviewed and Electronically Signed By: eFla Palomo Signed Date: 07/22/2024 17:00 ET Workstation ID: [id number] Transcribed By: Self Edit Transcribed Date: 07/22/2024 16:58 ET ASSESSMENT & PLAN Patient is 79 years old female with past medical history significant for type 2 diabetes, hypertension, chronic kidney disease stage IV, iron deficiency anemia, dyslipidemia, lung nodule brought to the [facility] after wellness check was called to police by her daughter. Patient was foundon the ground unable to get up and was confused. Patient admitted to medical floors for further management of chronic kidney disease, metabolic encephalopathy. # Acute on chronic kidney injury, crescentic glomerulonephritis requiring hemodialysis. -Patient is on hemodialysis Thursday. On prednisone, Bactrim every Thursday. Per instrument assembly supervisor patient's kidney biopsy consistent with crescentic glomerulonephritis. Rituximab given on 07/28/2024. Next dose in 2 weeks. Patient is being followed by instrument assembly supervisor for hemodia lysis. # Right upper lobe [...] 2 (HCC) DVT, lower extremity (CMS/[facility]) LEFT LEG Family history of early CAD [...] arranged at [facility] m--f 1st shift [phone] on hold since July 21. We need to know before Thursday if he can give away the chair and patient disposition Consider Kana Fern[facility]dez or Maribeth if going to [facility] Discussed with medical team. Patient to get transfused today Will follow chuck w team If patient discharged before August 11 the outpatient facility needs to arrange for rituximab infusion on August 11 or Chencho Wayne MD * Nelli Schmidt OT - 08/03/2024 9:15 AM EST Therapy session was attempted for [place] A Contreras by Nelli Schmidt OT on [...] Isidra Florence - 08/02/2024 2:31 PM EST [facility] Physical Therapy Treatment PT Discharge Recommendations: Inpatient rehab facility placement, detention facility placement Equipment Recommended: rolling walker Staff [...] is a 79 y.o. female admitted to [facility] on 07/08/2024 with: Patient Active Problem List Diagnosis Hypertension Hyperlipidemia History of cancer of unknown primary site CKD (chronic kidney disease) stage 4, GFR 15-29 ml/min ([facility]) Iron deficiency anemia Impaired renal function Type 2 diabetes mellitus without complication, without long-term current use of insulin ([facility]) Lung mass Pulmonary nodule Fall prevention education [...] week PT Discharge Recommendations Inpatient rehab facility placement;detention facility placement Equipment Recommended rolling walker PT [...] PT Discharge Recommendations: Inpatient rehab facility placement, detention facility placement Equipment Recommended: rolling walker Barriers [...] a 79 y.o. female : 1945 MR#: [id number] SUBJECTIVE Subjective Patient seen by the bedside [...] of fentanyl administered during the procedure. Scanner: [employer] [address] Dose reduction technique: AEC [...] Signed Date: 07/22/2024 17:00 ET Workstation ID: [id number] Transcribed By: Self Edit Transcribed Date: 07/22/2024 16:58 ET ASSESSMENT & PLAN Patient is 79 years old female with past medical history significant for type 2 diabetes, hypertension, chronic kidney disease stage IV, iron deficiency anemia, dyslipidemia, lung nodule brought to the [facility] after wellness check was called to police by her daughter. Patient was foundon the ground unable to get up and was confused. Patient admitted to medical floors for further management of chronic kidney disease, metabolic encephalopathy. # Acute on chronic kidney injury, crescentic glomerulonephritis requiring hemodialysis. -Patient is on hemodialysis Thursday. On prednisone, Bactrim every Thursday. Per instrument assembly supervisor patient's kidney biopsy consistent with crescentic glomerulonephritis. Rituximab given on 07/28/2024. Next dose in 2 weeks. Patient is being followed by instrument assembly supervisor for hemodia lysis. # Right upper lobe [...] Schmidt OT - 08/02/2024 1:35 PM EST [facility] Occupational Therapy Treatment Note DATE: Friday August 02, 2024 TIME IN: 1335 TIME OUT: 1405 Pt: Ana Contreras 561/561-2 DISCHARGE RECS: Inpatient rehab facility placement, detention facility placement EQUIPMENT RECS: Walker-rolling SAFE PT [...] Complete OT Discharge Recommendations Inpatient rehab facility placement;detention facility placement Equipment Recommended Walker-rolling ADDITIONAL COMMENTS: [...] Montez Renal diet Outpatient HD arranged at [facility] 1st shift [phone]) Consider Kana Jolene or Maribeth if going to SNF Discussed with medical team. Patient to get transfused today Will follow [facility] team Chencho Wayne MD * Katina [...] Montez Renal diet Outpatient HD arranged at [facility] 1st shift [phone]) Consider Kana Fernández or Maribeth if going to SNF Will follow [facility] w team Anthony Norton MD * Steve Cruz MD - 08/01/2024 4:42 PM EST Images from the original note were not included. SONYA PROGRESS NOTE Date: 08/01/2024 Author: Steve Cruz MD Patient ID: Ana Contreras is a 79 y.o. female : 1945 MR#: [id number] SUBJECTIVE Subjective Patient seen by the bedside [...] of fentanyl administered during the procedure. Scanner: [employer] [address] Dose reduction technique: AEC [...] Signed Date: 07/22/2024 17:00 ET Workstation ID: [id number] Transcribed By: Self Edit Transcribed Date: 07/22/2024 16:58 ET ASSESSMENT & PLAN Patient is 79 years old female with past medical history significant for type 2 diabetes, hypertension, chronic kidney disease stage IV, iron deficiency anemia, dyslipidemia, lung nodule brought to the [facility] after wellness check was called to police by her daughter. Patient was foundon the ground unable to get up and was confused. Patient admitted to medical floors for further management of chronic kidney disease, metabolic encephalopathy. # Acute on chronic kidney injury, crescentic glomerulonephritis requiring hemodialysis. -Patient is on hemodialysis Thursday. On prednisone, Bactrim every Thursday. Per instrument assembly supervisor patient's kidney biopsy consistent with crescentic glomerulonephritis. Rituximab given on 07/28/2024. Next dose in 2 weeks. Patient is being followed by instrument assembly supervisor for hemodia lysis. # Right upper lobe [...] Camara, RADHIKA - 08/01/2024 11:00 AM EST [place], [place] Acute Care PT TREATMENT 08/01/2024 Patient Information Ana Chaparro Ben 1945 79 y.o. Ambulation: Walking Assistance: Minimum assistance Device: Rolling walker Distance Ambulated (ft): (5 steps to transfer bed to commode + 3 to 4 steps forward and 3 to 4 steps back with RW) PLOF: Level of Daphne: Independent with mobility and functional transfers Lives [...] Medical Precautions: Fall Risk Safety Interventions: Call hcavarria within reach, ID band on, Chair alarm [...] Schmidt OT - 08/01/2024 10:50 AM EST [facility] Occupational Therapy Treatment Note DATE: Thursday August 01, 2024 TIME IN: 1050 TIME OUT: 1125 Pt: Ana oCntreras 561/561-2 DISCHARGE RECS: detention facility placement, Inpatient rehab facility placement EQUIPMENT [...] - Evaluation Status Complete OT Discharge Recommendations detention facility placement;Inpatient rehab facility placement Equipment Recommended [...] onward) Start Ordered 07/27/24 1332 Adult diet [facility]; General; Renal- Chronic Kidney Disease; Self-Select Meals Diet effective now Question Answer Comment Location [facility] Diet Type (req) General General Diet Renal- Chronic Kidney Disease Is the patient able to participate in meal ordering? Self-Select Meals 07/27/24 1332 07/11/24 1133 Dietary nutrition supplements Two times daily (BID); [facility]; Diabetic Supplement Continuous Question Answer Comment Frequency Two times daily (BID) Location [facility] Supplements Diabetic Supplement 07/11/24 1132 History [...] at home. No noted food allergies. Appetite RADIO DISPATCHER: Poor Intake RADIO DISPATCHER: Decreased Weight History: Wt Readings from Last [...] reports improved PO intake since last visit. PUMP MECHANIC at bedside who confirmed she has been [...] or fat depletion Skin: Skin intact per fashion intern Nutrition Diagnosis: Code Type: None Identified Status: [...] Pain is manageable through therapies 08/01/2024320 by aKtina Altamirano RN Outcome: Progressing 08/01/2024252 by Katina [...] a 79 y.o. female : 1945 MR#: [id number] SUBJECTIVE Follow up:metabolic encephalopathy, renal failure requiring [...] of fentanyl administered during the procedure. Scanner: [employer] [address] Dose reduction technique: AEC [...] Signed Date: 07/22/2024 17:00 ET Workstation ID: [id number] Transcribed By: Self Edit Transcribed Date: 07/22/2024 16:58 ET ASSESSMENT & PLAN Patient is an 79 woman with HTN, DM2, CKD 4, iron deficiency anemia, hyperlipidemia, and recent diagnosis of lung nodule with planned bronchoscopy and EBUS , she was brought to the [facility] ER on 07/08 after wellness check was [...] tomorrow Patient will need SNF with hemodialysis capability([facility] vs [facility]). [facility] already aware and referrals placed. * [...] Montez Renal diet Outpatient HD arranged at [facility] -w- 1st shift [phone]) Consider K[facility] or Maribeth if going to [facility] Mindy Katz MD Cosigned by Miguel Quiles MD at 08/02/2024 2:08 PM EST * Jonny Mathur MD - 07/30/2024 12:28 PM EST Images from the original note were not included. SONYA PROGRESS NOTE Date: 07/30/2024 Author: Jonny Mathur MD Patient ID: Ana Contreras is a 79 y.o. female : 1945 MR#: [id number] SUBJECTIVE Follow up:metabolic encephalopathy, renal failure w/renal [...] of fentanyl administered during the procedure. Scanner: [employer] [address] Dose reduction technique: AEC [...] Signed Date: 07/22/2024 17:00 ET Workstation ID: [id number] Transcribed By: Self Edit Transcribed Date: 07/22/2024 [...] a 79 y.o. female : 1945 MR#: [id number] SUBJECTIVE Follow up:metabolic encephalopathy, renal failure requiring [...] of fentanyl administered during the procedure. Scanner: [employer] [address] Dose reduction technique: AEC [...] Signed Date: 07/22/2024 17:00 ET Workstation ID: [id number] Transcribed By: Self Edit Transcribed Date: 07/22/2024 [...] Montez Renal diet Outpatient HD arranged at [facility] - 1st shift [phone]) Consider Kana Jolene or Maribeth if going to SNF Miguel [...] a 79 y.o. female : 1945 MR#: [id number] SUBJECTIVE Follow up:metabolic encephalopathy, renal failure requiring [...] of fentanyl administered during the procedure. Scanner: [employer] [address] Dose reduction technique: AEC [...] Signed Date: 07/22/2024 17:00 ET Workstation ID: [id number] Transcribed By: Self Edit Transcribed Date: 07/22/2024 [...] examined No complaints D/w medical attending D/w [facility] pathology MEDICAL HISTORY Past Medical [...] Montez Renal diet Outpatient HD arranged at [facility] -w- 1st shift [phone]) Consider Kana Jolene or Maribeth if going to [facility] Miguel Quiles MD * Jonny Mathur MD - 07/27/2024 7:02 PM EST Images from the original note were not included. SONYA PROGRESS NOTE Date: 07/27/2024 Author: Jonny Mathur MD Patient ID: Ana Contreras is a 79 y.o. female : 1945 MR#: [id number] SUBJECTIVE Follow up:metabolic encephalopathy, renal failure requiring [...] Sitting Pulse: 74 74 89 85 Resp: Temp: 36.4 ??C (97.5 ??F) 36.1 ??C [...] of fentanyl administered during the procedure. Scanner: [employer] [address] Dose reduction technique: AEC [...] Signed Date: 07/22/2024 17:00 ET Workstation ID: [id number] Transcribed By: Self Edit Transcribed Date: 07/22/2024 [...] Ordered 07/27/24 0001 Adult NPO diet Location: [facility]; Diet: NPO- Except for Medications Diet effective midnight Question Answer Comment Location [facility] Diet NPO- Except for Medications 07/26/24 1755 07/11/24 1133 Dietary nutrition supplements Two times daily (BID); [facility]; Diabetic Supplement Continuous Question Answer Comment Frequency Two times daily (BID) Location [facility] Supplements Diabetic Supplement 07/11/24 1132 History of presenting illness: Patient is a 79 y.o. female with a history of Past Medical History: Diagnosis Date Anemia Arthritis Blindness Decreased vision 11/29/2014 DX:Decreased vision Diabetes mellitus, type 2 ([facility]) 02/14/2014 DX:Diabetes mellitus, type 2 (HCC) DVT, [...] at home. No noted food allergies. Appetite RADIO DISPATCHER: Poor Intake RADIO DISPATCHER: Decreased Weight History: Wt Readings from Last [...] lung biopsy this morning. Currently NPO. Per fashion intern, pt consuming 25-50% of meals since last [...] or fat depletion Skin: Skin intact per fashion intern Nutrition Diagnosis: Code Type: None Identified Status: [...] Montez Renal diet Outpatient HD arranged at [facility] m-w-f 1st shift [phone]) Consider Kana Fernández or Maribeth if going to [facility] Miguel Quiles MD * Katina Machuca RN [...] from the original note were not included. [place] PROGRESS NOTE Date: 07/26/2024 Author: Jonny Mathur MD Patient ID: Ana Contreras is a 79 y.o. female : 1945 MR#: [id number] SUBJECTIVE Follow up:metabolic encephalopathy, renal failure requiring [...] of fentanyl administered during the procedure. Scanner: [employer] [address] Dose reduction technique: AEC [...] Signed Date: 07/22/2024 17:00 ET Workstation ID: [id number] Transcribed By: Self Edit Transcribed Date: 07/22/2024 [...] Fernández considering pending bed and HD slot. [facility] accepting w family to provide HD transportation support if Pt can get in/out of private vehicle. * Nithya Constantino, PT - 07/26/2024 8:45 AM EST Patient: Ana Contreras Age: 79 y.o. Sex: female Acute encephalopathy [facility] Physical Therapy RE-Evaluation Ambulation: Walking Assistance: [...] Distance Ambulated (ft): 3 PLOF: Level of Daphne: Independent with mobility and functional transfers Lives With: Alone Type of Home: House Home Adaptive Equipment: Cane, Rollator Home Layout: One level Home Access: Stairs to enter without rails DME Needs: r walker PT Discharge Recommendation: Inpatient rehab facility placement, detention facility placement Reason for current recommendation based [...] Shower/Tub Tub/shower unit Prior Function Level of Daphne Independent with mobility and functional transfers Ambulation [...] week PT Discharge Recommendations Inpatient rehab facility placement;detention facility placement Equipment Recommended r walker PT [...] Montez Renal diet Outpatient HD arranged at [facility] m-w-f 1st shift [phone]) Consider Kana Fernández or Maribeth if going to [facility] Miguel Quiles MD * Katina Machuca RN [...] a 79 y.o. female : 1945 MR#: [id number] SUBJECTIVE Follow up:metabolic encephalopathy, renal failure requiring [...] of fentanyl administered during the procedure. Scanner: [employer] [address] Dose reduction technique: AEC [...] Signed Date: 07/22/2024 17:00 ET Workstation ID: [id number] Transcribed By: Self Edit Transcribed Date: 07/22/2024 [...] Montez Renal diet Outpatient HD arranged at [facility] -- 1st shift [phone]) Consider Kana Jolene or Maribeth if going to [facility] Miguel Quiles MD * Tarsha Corea RN - 07/25/2024 8:45 AM EST DANITZA: 07/28 Barriers: Renal Bx 07/22 w/ path pending, new HD, trend labs, H/H, heparin drip- LLE DVT, repeat Pt eval, lung mass biopsy 07/27 Plan: 1st choice - [facility] or [place] d/t onsite HD. [facility] accepting w family to provide HD [...] up Transition Plan Back up Transition plan [facility] Facility Barriers to discharge: Renal Bx 07/22 path pending, new HD, trend labs, H/H, heparin drip-LLE DVT, repeat Pt eval, lung mass biopsy 07/27 Plan: [facility] accepting w family to provide HD transportation support. Jeni Stuart MD - 07/24/2024 1:11 PM EST Images from the original note were not included. SONYA PROGRESS NOTE Date: 07/24/2024 Author: Lencho Stuart MD Patient ID: Ana Contreras is a 79 y.o. female : 1945 MR#: [id number] SUBJECTIVE CC: Follow-up renal failure No complaints. [...] bed, anticoagulation/lung mass biopsy HCP: Daughter, Dennise. [phone] Jeni Golden MD - 07/24/2024 8:59 AM EST [...] 18 Units/kg/hr, Last Rate: 21 Units/kg/hr (07/23/24 6441) OBJECTIVE Vital signs in last 24 hours: [...] a 79 y.o. female : 1945 MR#: [id number] SUBJECTIVE CC: Follow-up renal failure Post procedure [...] 18 Units/kg/hr, Last Rate: 23 Units/kg/hr (07/23/24 100) PRN medications: acetaminophen, benzonatate, dextrose 50%, dextrose [...] fluids,admitted for further monitoring and treatment. -RENE/ATN. -Underlying [...] DC likely next week. HCP: Daughter, Dennise. [phone] * Nelli Schmidt OT - 07/23/2024 9:00 [...] as patient lives in the area Tony Gloden MD * Pau Awad RN - 07/23/2024 [...] from the original note were not included. [place] PROGRESS NOTE Date: 07/22/2024 Author: Lencho Stuart MD Patient ID: Ana Contreras is a 79 y.o. female : 1945 MR#: [id number] SUBJECTIVE CC: Follow-up renal failure Seen in [...] DC likely next week. HCP: Daughter, Dennise. [phone] * Kayleigh Laguna RD - 07/22/2024 12:44 [...] Ordered 07/22/24 0001 Adult NPO diet Location: [facility]; Diet: NPO- Except for Medications Diet effective midnight Question Answer Comment Location [facility] Diet NPO- Except for Medications 07/21/24 1326 07/11/24 1133 Dietary nutrition supplements Two times daily (BID); [facility]; Diabetic Supplement Continuous Question Answer Comment Frequency Two times daily (BID) Location [facility] Supplements Diabetic Supplement 07/11/24 1132 Food/Nutrition History: Previous Diet / Nutrition Education / Counseling: Per MST screeening, pt reports weight loss of 24-33 lb in past 3 months, and reports poor PO intake. Pt living by herself prior to admission, but hassupport from children. History of DM- takes glipizide at home. No noted food allergies. Appetite RADIO DISPATCHER: Poor Intake RADIO DISPATCHER: Decreased Weight History: Wt Readings from Last [...] or fat depletion Skin: Skin intact per fashion intern Nutrition Diagnosis: Code Type: None Identified Status: [...] bx is CA, Pt may transition to MANAGER SHIFT per family. Per IPR, Pulmonary IR stated possible intervention 07/27. Plan: STR pending accepting facility w HD support. * Nithya Constantino, PT - 07/22/2024 8:30 AM EST Patient: Ana Contreras Age: 79 y.o. Sex: female Acute encephalopathy [facility] Physical Therapy Treatment Ambulation: Walking Assistance: Minimum assistance Walking Deficit: Steadying, Verbal cueing, Supervision/safety awareness, Increased time to complete, Assist for trunk control, Assist for weight shifting, Limited endurance, Impaired balance, LE weakness Device: Rolling walker Distance Ambulated (ft): 2 PLOF: Level of Daphne: Independent with mobility and functional transfers Lives [...] Activity 3 sit to stand transfers at [facility], requiring only min assist for lift [...] Plan PT Discharge Recommendations Inpatient rehab facility placement;detention facility placement Equipment Recommended r walker Barriers [...] Results from last 7 days Lab Units 07/22/2431007/21/24 0855 07/20/24 0546 CREATININE mg/dL 2.87* 5.05* [...] request to regional HD placement) [facility]erral [facility] made as patient lives in the [...] at 0648. Bed alarm on. * Jolene Carodna RN - 07/21/2024 5:56 PM EST Goals: [...] a 79 y.o. female : 1945 MR#: [id number] SUBJECTIVE CC: Follow-up renal failure Seen during [...] DC likely next week. HCP: Daughter, Dennise. [phone] * Louis Welch RN - 07/21/2024 12:55 [...] AM EST Problem: Falls: Fall Risk (Adult [facility]) Goal: (Goal) Patient will experience maximum [...] a 79 y.o. female : 1945 MR#: [id number] SUBJECTIVE CC: Follow-up renal failure Seen in [...] renal biopsy, pending SNF bed. HCP: DaughterDennise. [phone] * Miguel Quiles MD - 07/20/2024 12:09 [...] Age: 79 y.o. Sex: female Acute encephalopathy [facility] Physical Therapy Treatment Ambulation: Walking Assistance: Moderate assistance Device: Rolling walker Distance Ambulated (ft): 2 PLOF: Level of Daphne: Independent with mobility and functional transfers Lives [...] ble's) Therapeutic Activity 2 sit-stand transfers at [facility], mod assist to adjust posture, hand and foot posture, and to facilitate forward trunk over ISABELLE. Pt stood, supported at [facility] with mod assist, limited by ble [...] a 79 y.o. female : 1945 MR#: [id number] SUBJECTIVE CC: Follow-up RENE, DVT and encephalopathy [...] 1-2 days. Barrier: Heparin, anemia HCP: DaughterDennise. [phone] * Jose Lujan RN - 07/19/2024 11:20 [...] PRN for the MARTINEZ with improvement post internist medical doctor md. Pt's floorRN aware of leg pain and [...] request to regional HD placement) [facility]erral [facility] made as patient lives in the [...] Torres RN Outcome: Progressing 07/19/2024 0238 by Katian Torres RN Outcome: Not Progressing Goal: Patient [...] surface to another 07/19/2024 024 by Katina Torres, RN Outcome: [...] by Katina Torres, RN Outcome: Progressing 07/19/2024 024 by Katina Torres RN Outcome: Progressing 07/19/2024 0238 by Katina Torres RN Outcome: Progressing Goal: Pain is manageable through therapies 07/19/2024 0246 by Katina Torres, RN Outcome: [...] a 79 y.o. female : 1945 MR#: [id number] SUBJECTIVE CC: Follow-up RENE, DVT and encephalopathy [...] over the next 1-3 days. HCP: DaughterDennise. [phone] * Kayleigh Laguna, RD - 07/18/2024 4:24 [...] onward) Start Ordered 07/17/24 1206 Adult diet [facility]; Cardiac, Diabetic; 60 gm carb/Meal; Cardiac Diet effective now Question Answer Comment Location [facility] Diet Type (req) Cardiac Diet Type (req) Diabetic Diabetic 60 gm carb/Meal Diet Type (cardiac) Cardiac 07/17/24 1205 07/11/24 1133 Dietary nutrition supplements Two times daily (BID); [facility]; Diabetic Supplement Continuous Question Answer Comment Frequency Two times daily (BID) Location [facility] Supplements Diabetic Supplement 07/11/24 1132 History of presenting illness: Patient is a 79 y.o. female with a history of Past Medical History: Diagnosis Date Anemia Arthritis Blindness Decreased vision 11/29/2014 DX:Decreased vision Diabetes mellitus, type 2 ([facility]) 02/14/2014 DX:Diabetes mellitus, type 2 (HCC) DVT, [...] at home. No noted food allergies. Appetite RADIO DISPATCHER: Poor Intake RADIO DISPATCHER: Decreased Weight History: Wt Readings from Last [...] or fat depletion Skin: Skin intact per fashion intern Nutrition Diagnosis: Code Type: None Identified Status: [...] 1345 Type of Visit: Initial Visit and Sat Act Instructor Rounding Reason for Visit: Spiritual/Emotional Support and Spiritual Assessment Time Spent: 25 Minutes Location: [address] [place] [address] Sacramental Encounters: Spiritual Distress Assessment: Spiritual Distress [...] and missed her two cats. Pt reportedbeing Sabianist while also reporting that she did not pray often. Sat Act Instructor's suggestion to pray that evening was received [...] usually? Transcendence Do you have a particular rastafari, jimena, or spirituality? Is your rastafari/spirituality/jimena challenged by what is happening to you [...] 11/29/2014 DX:Decreased vision Diabetes mellitus, type 2 ([facility]/HCC) 02/14/2014 DX:Diabetes mellitus, type 2 (HCC) Family [...] EST Ana Contreras 07/08/2024 1945 79 y.o. [id number] Kwesi Guido, * INTERVAL HISTORY: No events [...] Signed Date: 07/16/2024 12:33 ET Workstation ID: [id number] Transcribed By: Self Edit Transcribed Date: 07/16/2024 [...] PRN heparin, Last Rate: 24.4 Units/kg/hr (07/17/24 6066) ASSESSMENT/PLAN: Mrs. Contreras is a 79 y.o. [...] - pending clinical improvement HCP -Daughter Dennise [phone], she was updated at bedside today. 45 minutes were spent in patient care including xras-gc-xoze time, chart review, discussion with providers, documentation, order processing clerk. High complexity medical decision making. Health Care proxy with Phone number: Paul Contreras Jr (Son) Disclaimer: Speech recognition software was utilized to dictate portions of this document. Errors in hat presser may be present. Please call / cortext [...] Ana Chaparro Ben 07/08/2024 1945 79 y.o. [id number] Kwesi Guido, * INTERVAL HISTORY: No events [...] Signed Date: 07/16/2024 12:33 ET Workstation ID: [id number] Transcribed By: Self Edit Transcribed Date: 07/16/2024 [...] - pending clinical improvement HCP -Daughter Dennise [phone], she was updated at bedside today. 60 minutes were spent in patient care including ijse-fr-twcf time, chart review, discussion with providers, documentation, order processing clerk. High complexity medical decision making. Health Care proxy with Phone number: Disclaimer: Speech recognition software was utilized to dictate portions of this document. Errors in hat presser may be present. Please call / cortext [...] 11/29/2014 DX:Decreased vision Diabetes mellitus, type 2 ([facility]/HCC) 02/14/2014 DX:Diabetes mellitus, type 2 ([facility]) Family history of early CAD 03/01/2014 DX:Family [...] 11/29/2014 DX:Decreased vision Diabetes mellitus, type 2 ([facility]/HCC) 02/14/2014 DX:Diabetes mellitus, type 2 ([facility]) Family history of early CAD 03/01/2014 DX:Family [...] Ana Chaparro Contreras 07/08/2024 1945 79 y.o. [id number] Kwesi Guido, * INTERVAL HISTORY: No events [...] - pending clinical improvement HCP -Dr. Bowden [phone], she was updated at bedside today. Health Care proxy with Phone number: Disclaimer: Speech recognition software was utilized to dictate portions of this document. Errors in hat presser may be present. Please call / cortext [...] Isidra Florence - 07/14/2024 2:14 PM EST [facility] Physical Therapy Evaluation & Treatment PT Discharge Recommendations: detention facility placement Staff Recommendations for safe patient [...] is a 79 y.o. female admitted to [facility] on 07/08/2024. Patient Active Problem List Diagnosis Hypertension Hyperlipidemia History of cancer of unknown primary site CKD (chronic kidney disease) stage 4, GFR 15-29 ml/min ([facility]) Iron deficiency anemia Impaired renal function Type 2 diabetes mellitus without complication, without long-term current use of insulin ([facility] Lung mass Acute encephalopathy Past Medical History: Diagnosis Date Anemia Arthritis Blindness Decreased vision 11/29/2014 DX:Decreased vision Diabetes mellitus, type 2 ([facility]) 02/14/2014 DX:Diabetes mellitus, type 2 ([facility]) Family history of early CAD 03/01/2014 DX:Family [...] Shower/Tub: Tub/shower unit Prior Function Level of Daphne: Independent with mobility and functional transfers Ambulation [...] 1 time per day PT Discharge Recommendations detention facility placement Equipment Recommended walker PT - [...] is a 79 y.o. female admitted to [facility] on 07/08/2024 for Hyponatremia [E87.1] Acute [...] deficits listedabove and optimize function. PT recommends detention facility placement when medically stablefor safe discharge [...] 11/29/2014 DX:Decreased vision Diabetes mellitus, type 2 ([facility]/HCC) 02/14/2014 DX:Diabetes mellitus, type 2 ([facility]) Family history of early CAD 03/01/2014 DX:Family [...] Ana Chaparro Contreras 07/08/2024 1945 79 y.o. [id number] Kwesi Guido, * INTERVAL HISTORY: No events [...] but no reported vaginal discharge. OBJECTIVE: Vitals: 07/13/24200807/14/2433107/14/24 0607/14/24 0817 BP: (!) 174/62 126/84 (!) 150/51 [...] performed without IV contrast. DLP: 613.10 mGy/cm FancloudpeSynAgile VCT Iterative reconstruction technique Findings: Respiratory motion [...] Small bilateral pleural effusions, new. Telerad RYLEY ([id number]) -------- FINAL REPORT -------- Dictated By: Edilia Durbin Dictated Date: 07/12/2024 13:07 ET Assigned Physician: Edilia Durbin Reviewed and Electronically Signed By: Edilia Durbin Signed Date: 07/12/2024 13:19 ET Workstation ID: [id number] Transcribed By: Self Edit Transcribed Date: 07/12/2024 [...] - pending clinical improvement HCP -Dr. Bowden [phone], she was updated at bedside today. Health Care proxy with Phone number: Disclaimer: Speech recognition software was utilized to dictate portions of this document. Errors in hat presser may be present. Please call / cortext [...] Melany H, RN Outcome: Progressing Goal: Maintains dynamic standing [...] by Melany H, RN Outcome: Progressing Goal: Patient will recall [...] 11/29/2014 DX:Decreased vision Diabetes mellitus, type 2 ([facility]CC) 02/14/2014 DX:Diabetes mellitus, type 2 ([facility]) Family history of early CAD 03/01/2014 DX:Family [...] -Review of spot urine for electrolytes protein [id number]-[id number]-FL Q [place] is not clearly pointing towards significant prerenal [...] No indication today They agree to have MEDICAL LEADER if she needs it Discussed with the medical team in detail about the patient Chencho Wayne MD * Kwesi Guido MD - 07/13/2024 10:44 AM EST Ana Contreras 07/08/2024 1945 79 y.o. [id number] Kwesi Guido, * INTERVAL HISTORY: No events [...] - pending clinical improvement HCP -Dr. Bowden [phone], she was updated at bedside today. Health Care proxy with Phone number: Disclaimer: Speech recognition software was utilized to dictate portions of this document. Errors in hat presser may be present. Please call / cortext [...] Dietary nutrition supplements Two times daily (BID); [facility]; Diabetic Supplement Continuous Question Answer Comment Frequency Two times daily (BID) Location [facility] Supplements Diabetic Supplement 07/11/24 1132 07/11/24 1133 Adult diet [facility]; Cardiac, Diabetic; 75 gm carb/Meal; No Added Salt Diet effective now Question Answer Comment Location [facility] Diet Type (req) Cardiac Diet Type (req) Diabetic Diabetic 75 gm carb/Meal Diet Type (cardiac) No Added Salt 07/11/24 1132 History of presenting illness: Patient is a 79 y.o. female with a history of Past Medical History: Diagnosis Date Anemia Arthritis Blindness Decreased vision 11/29/2014 DX:Decreased vision Diabetes mellitus, type 2 ([facility]) 02/14/2014 DX:Diabetes mellitus, type 2 ([facility]) Family history of early CAD 03/01/2014 DX:Family [...] at home. No noted food allergies. Appetite RADIO DISPATCHER: Poor Intake RADIO DISPATCHER: Stable Weight History: Wt Readings from Last [...] or fat depletion Skin: Skin intact per fashion intern Nutrition Diagnosis: Code Type: None Identified Status: [...] Guido MD - 07/12/2024 11:47 PM EST [facility] Provider Response Note PATIENT: ANA CONTRERAS : 1945 ADMIT DATE: 07/08/2024 2:44 PM DISCH DATE: RESPONDING PROVIDER #: [id number] PROVIDER RESPONSE TEXT: The patient has metabolic encephalopathy. QUERY TEXT: Encephalopathy is documented in the medical record. Please specify the type. H&P 07/08/2024 (3) Patient will be transferred to the care of [facility] staff for further management of their acute [...] EST Ana Contreras 07/08/2024 1945 79 y.o. [id number] Kwesi Guido, * INTERVAL HISTORY: No events [...] days Lab Units 07/12/24 0607/11/24 0607/10/24 0516 07/09/2462407/08/24 1752 07/08/24 1110 SODIUM mmol/L 132* 130* [...] Signed Date: 07/10/2024 14:08 ET Workstation ID: [id number] Transcribed By: Self Edit Transcribed Date: 07/10/2024 [...] - pending clinical improvement HCP -Dr. Bowden [phone], she was updated at bedside today. Health Care proxy with Phone number: Disclaimer: Speech recognition software was utilized to dictate portions of this document. Errors in hat presser may be present. Please call / cortext [...] Ana Chaparro Contreras 07/08/2024 1945 79 y.o. [id number] Kwesi Guido, * INTERVAL HISTORY: No events [...] Signed Date: 07/10/2024 14:08 ET Workstation ID: [id number] Transcribed By: Self Edit Transcribed Date: 07/10/2024 [...] - pending clinical improvement HCP -Dr. Bowden [phone] Her son Paul was updated at bedside with her permission Health Care proxy with Phone number: Disclaimer: Speech recognition software was utilized to dictate portions of this document. Errors in hat presser may be present. Please call / cortext me if any questions. Portions of this note such ROS, Exam, Assessment and Plan were copy pasted from previous notes. Information was reviewed and changes were made accordingly. I agree with above mentioned information * Kwesi Guido MD - 07/11/2024 5:44 PM EST [facility] Provider Response Note PATIENT: ANA CONTRERAS : 1945 ADMIT DATE: 07/08/2024 2:44 PM DISCH DATE: RESPONDING PROVIDER #: [id number] PROVIDER RESPONSE TEXT: The patient has traumatic [...] Elmore OT - 07/11/2024 8:34 AM EST [facility] Occupational Therapy Evaluation DATE: Thursday July 11, 2024 TIME IN: 729 TIME OUT: 819 Pt: Ana Contreras ROOM: 561/561-2 Discharge Recommendation: detention facility Equipment Recommendation: walker Staff recommendations for [...] is a 79 y.o. female admitted to [facility] on 07/08/2024. Occupational Therapy evaluation and treatment ordered to assess ADL independence, safety, and functional mobility for discharge planning. Patient Active Problem List Diagnosis Hypertension Hyperlipidemia History of cancer of unknown primary site CKD (chronic kidney disease) stage 4, GFR 15-29 ml/min ([facility]) Iron deficiency anemia Impaired renal function Type 2 diabetes mellitus without complication, without long-term current use of insulin ([facility]) Lung mass Acute encephalopathy Past Medical History: Diagnosis Date Anemia Arthritis Blindness Decreased vision 11/29/2014 DX:Decreased vision Diabetes mellitus, type 2 ([facility]) 02/14/2014 DX:Diabetes mellitus, type 2 ([facility]) Family history of early CAD 03/01/2014 DX:Family [...] - Evaluation Status: Complete OT Discharge Recommendations: detention facility placement, Home OT Equipment Recommended: Walker-standard, [...] Goldman PT - 07/10/2024 2:37 PM EST [facility] Physical Therapy Evaluation & Treatment PT Discharge Recommendations: detention facility placement Staff Recommendations for safe patient [...] is a 79 y.o. female admitted to [facility] on 07/08/2024. Patient Active Problem List Diagnosis Hypertension Hyperlipidemia History of cancer of unknown primary site CKD (chronic kidney disease) stage 4, GFR 15-29 ml/min ([facility]) Iron deficiency anemia Impaired renal function Type 2 diabetes mellitus without complication, without long-term current use of insulin ([facility]) Lung mass Acute encephalopathy Past Medical History: Diagnosis Date Anemia Arthritis Blindness Decreased vision 11/29/2014 DX:Decreased vision Diabetes mellitus, type 2 ([facility]) 02/14/2014 DX:Diabetes mellitus, type 2 ([facility]) Family history of early CAD 03/01/2014 DX:Family [...] of Steps: 3 Prior Function Level of Daphne: Independent with mobility and functional transfers Ambulation [...] of Steps 3 Prior Function Level of Daphne Independent with mobility and functional transfers Ambulation [...] 1 time per day PT Discharge Recommendations detention facility placement PT - Evaluation Status Complete [...] is a 79 y.o. female admitted to [facility] on 07/08/2024 for Hyponatremia [E87.1] Acute [...] listed above and optimize function. PT recommends detention facility placement when medically stable for safe [...] a 79 y.o. female : 1945 MR#: [id number] SUBJECTIVE CC: Here with fall, RENE, hyponatremia [...] Signed Date: 07/09/2024 09:03 ET Workstation ID: [id number] Transcribed By: Self Edit Transcribed Date: 07/09/2024 09:02 ET ASSESSMENT & PLAN Ana oCntreras is a 79 y.o. female with PMH [...] - pending clinical improvement HCP -Dr. Bowden [phone] -I met with her at the bedside on 07/09/24 and reviewed the plan. * Tarsha Corea RN - 07/09/2024 10:22 AM EST 07/09/24 1021 Initial Transition Plan Initial Transition Plan Fdc Facility Back up Transition Plan Back up Transition plan Home Health Care Discharge Planning Living Arrangements Alone Type of Residence Private residence Assistive Devices Walker;Cane;Eyeglasses;Dentures upper Support Systems Extended family;Children Anticipated Discharge Needs Home Health RN;PT;OT Discipline following for SNF placement Co Founder ICC confirmed demographics w Dennise, daughter. Barriers: [...] a 79 y.o. female : 1945 MR#: [id number] SUBJECTIVE CC: Here with fall, RENE, hyponatremia [...] Signed Date: 07/08/2024 14:07 ET Workstation ID: [id number] Transcribed By: Self Edit Transcribed Date: 07/08/2024 [...] Signed Date: 07/08/2024 12:27 ET Workstation ID: [id number] Transcribed By: Self Edit Transcribed Date: 07/08/2024 [...] Signed Date: 07/08/2024 12:23 ET Workstation ID: [id number] Transcribed By: Self Edit Transcribed Date: 07/08/2024 [...] Dispo -pending clinical improvement HCP -Dr. Bowden [phone] -I met with her at the bedside [...] at this time and denies pain. * oJlene Cardona RN - 07/09/2024 12:13 AM EST [...] infectious concerns): [] Yes / [x] No Drone Software Development Engineer: [] Yes / [x] No If YES, Cardiac Rhythm: [] NSR, [] SB, [] ST, [] A-FIB, [] A-Flutter, [] Pacemaker, [] 1st Degree HB, [] 2nd Degree HB, [] 3rd Degree HB Reason for Drone Software Development Engineer: VS: Visit Vitals BP (!) 148/62 [...] and Phone Extension: [place] [phone] * Michelle Christie RN - 07/08/2024 3:51 PM EST 07/08/24 1545 Initial Transition Plan Initial Transition Plan Fdc Facility Back up Transition Plan Back up Transition plan Home Health Care Discharge Planning Contact (Name, Phone #, Relationship) for DC Planning Dennise Nj daughter [phone] Living Arrangements Alone Type of Residence Private residence (apartment with 6 steps to enter/no elevator) Assistive Devices Walker;Cane Support Systems Children;Extended family Medication Coverage Has Med Coverage Under Insurance Plan Yes Anticipated Discharge Needs Home Health PT;RN Discipline following for SNF placement Co Founder Patient lives alone in a first floor [...] referrals for wide VNA and STR including: [facility] and placed in [facility]. HCP completed and IM given as patient was subacute to inpatient status. States she was diagnosed in November or December 2023 for iron deficiency anemia and has become very weak. Plan transfer to floor. * Prisca Goldman PT - 07/08/2024 1:48 PM EST Therapy session was attempted for Ana Chaparro Contreras by Prisca Goldman PT on 07/08/2024. [...] - 07/08/2024 10:32 AM EST Pt to [facility]. Unwitnessed mechanical fall [...] REFLEX MICROSCOPIC AND CULTURE - Abnormal Specific Arnold Urine 1.020 pH, Urine 5.5 Leukocytes, Urine [...] Procedure Abnormality Status --------- ------ CBC auto differential[[id number]] Abnormal Final result Please view results for these tests on the individual orders. TROPONIN I HIGH SENSITIVITY URINALYSIS WITH REFLEX MICROSCOPIC AND CULTURE Narrative: The following orders were created for panel order Urinalysis with reflex microscopic and culture. Procedure Abnormality Status --------- ------ Urinalysis with reflex ...[[id number]] Abnormal Final result Robertson urine culture tube[[id number]] In process Please view results for these [...] Signed Date: 07/08/2024 12:27 ET Workstation ID: [id number] Transcribed By: Self Edit Transcribed Date: 07/08/2024 12:[address] Head wo Contrast Final Result NO ACUTE INTRACRANIAL ABNORMALITY. -------- FINAL REPORT -------- Dictated By: GLENNA SOLITARIO Dictated Date: 07/08/2024 12:22 ET Assigned Physician: GLENNA SOLITARIO Reviewed and Electronically Signed By: GLENNA SOLITARIO Signed Date: 07/08/2024 12:23 ET Workstation ID: [id number] Transcribed By: Self Edit Transcribed Date: 07/08/2024 [...] hematocrit is 23.7 consent signed patient will gettransfusion of 1 unit. Medications sodium chloride 0.9 [...] - 08/05/2024 10:58 AM EST Plan for [facility] EBUS. Source Note - RYLEY Harris - 07/13/2024 10:28 AM EST Patient currently admitted to [facility] for RENE and anemia. Possible need for HD. Will cancel her lance bronch/EBUS scheduled 07/14/24 and reschedule in the next couple weeks. * RYLEY Rivas - 07/08/2024 3:39 PM EST Images from the original note were not included. [facility] HISTORY AND PHYSICAL Please contact author [RYLEY Rivas] via [employer]To Yellow Pages. Patient: Ana Contreras Admission Date/Time: 07/08/2024 10:31 [...] was found down on the ground by [facility]. She was unsure the details of [...] will be transferred to the care of [facility] staff for further management of their acute encephalopathy, fall. Review of Systems Review of Systems 10 point review of systems negative as otherwise stated in the HPI MEDICAL HISTORY Past Medical History Past Medical History: Diagnosis Date ??? Anemia ??? Arthritis ??? Blindness ??? Decreased vision 11/29/2014 DX:Decreased vision ??? Diabetes mellitus, type 2 ([facility]) 02/14/2014 DX:Diabetes mellitus, type 2 ([facility]) ??? Family history of early CAD 03/01/2014 [...] Signed Date: 07/08/2024 14:07 ET Workstation ID: [id number] Transcribed By: Self Edit Transcribed Date: 07/08/2024 14:[address] Cervical Spine wo Contrast Final Result No acute cervical spine fracture. -------- FINAL REPORT -------- Dictated By: GLENNA SOLITARIO Dictated Date: 07/08/2024 12:24 ET Assigned Physician: GLENNA SOLITARIO Reviewed and Electronically Signed By: GLENNA SOLITARIO Signed Date: 07/08/2024 12:27 ET Workstation ID: [id number] Transcribed By: Self Edit Transcribed Date: 07/08/2024 12:[address] Head wo Contrast Final Result NO ACUTE INTRACRANIAL ABNORMALITY. -------- FINAL REPORT -------- Dictated By: GLENNA SOLITARIO Dictated Date: 07/08/2024 12:22 ET Assigned Physician: GLENNA SOLITARIO Reviewed and Electronically Signed By: GLENNA SOLITARIO Signed Date: 07/08/2024 12:23 ET Workstation ID: [id number] Transcribed By: Self Edit Transcribed Date: 07/08/2024 [...] onward) Start Ordered 07/08/24 1438 Adult diet [facility]; General; Regular Diet effective now Question Answer Comment Location [facility] Diet Type (req) General General Diet Regular 07/08/24 1444 [x] Lines, tubes, drains: IV access [x] Medication reconciliation Health Care proxy with Phone number Dennise Nj daughter [phone] Cosigned by Wayne Donahue MD at 07/15/2024 [...] L4, and 11R. Surgeon: Cecily Montez MD Evaporator Helper: None Specimens: Above for pathology/cytology/microbiology Anesthesia: [...] Insertion of 18g/10cm Bard Powerglide midline Lot: [id number] Exp: 2025-05-28 Indications: Difficult draw with frequent [...] Fela Palomo MD Staff Role Emilie Silva Water Server Dorothea Garay Water Server Lay Roth Water Server Diaz Denise RN CV Invasive Nurse Fela [...] onward) Start Ordered 07/08/24 1438 Adult diet [facility]; General; Regular Diet effective now Question Answer Comment Location [facility] Diet Type (req) General General Diet [...] at home. No noted food allergies. Appetite RADIO DISPATCHER: Poor Intake RADIO DISPATCHER: Decreased Weight History: Wt Readings from Last [...] stable between 168-178 lb over past year ( lb). Weight in 12/2022 was 184 lb indicating 10 lb (5.4%) weight loss over course of 18 months. Subjective Assessment: Pt seen for nutrition consult/ high MST score. Pt admitted for fall, RENE and hyponatremia. Pt recently diagnosed with lung nodule with planned bronchoscopy and EBUS. Seen by OT and PT- recommending discharge to long term facility. 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 Family History Problem Relation Name Age of [...] should gradually improve, can get input from instrument assembly supervisor, please call me for an y question documented in this encounter Plan of Treatment Upcoming Encounters Date Type Department Care Team (Late st Contact Info) Description 09/05/2024 10:00 AM EDT Office Visit Endocrinology - [place] [address] [place] [address] Kathy Michelle PA [address] [place] [address] 10/06/2024 1:15 PM EDT Office Visit Internal Medicine - [place] [address] [place] [address] Eloisa Vázquez DO [address] [place] [address] 11/11/2024 11:00 AM EDT Ancillary Procedure [facility] - [address] [place] [phone] 11/14/2024 11:30 AM EDT Appointment [facility] CT Scan [address] [place] [phone] 12/01/2024 10:00 AM EDT Office Visit Thoracic Surgery - [place] [address] [place] [phone] Cecily Montez MD [address] [place] [address] Pending Results Name Type Priority Associated Diagnoses [...] POCT Glucose, blood (08/06/2024 11:07 AM EST) [facility] Signature Glucose POCT 187(H) 70 - 100 mg/dL 08/06/2024 11:09 AM EST [facility] Blood Capillary blood specimen / Unknown 08/06/2024 11:07 AM EST 08/06/2024 11:10 AM EST us Steve Cruz MD LAB POINT OF CA RE TEST DOCKED DEVICE UNSOLICITED RESULTS Final Result [facility] [address] [place] [address], [place] [phone] * (ABNORMAL) POCT Glucose, blood (08/06/2024 7:26 AM EST) [facility] Glucose POCT 66(L) 70 - 100 mg/dL 08/06/2024 7:27 AM EST [facility] Blood Capillary blood specimen / Unknown 08/06/2024 7:26 AM EST 08/06/2024 7:28 AM EST us Steve Cruz MD LAB POINT OF WA RE TEST DOCKED DEVICE UNSOLICITED RESULTS Final Result [facility] [address] [place] [address], [place] [phone] * (ABNORMAL) POCT Glucose, blood (08/05/2024 8:08 PM EST) Glucose POCT 263(H) 70 - 100 mg/dL 08/05/2024 8:08 PM EST [facility] Blood Capillary blood specimen / Unknown 08/05/2024 8:08 PM EST 08/05/2024 8:09 PM EST us Steve Cruz MD LAB POINT OF WA RE TEST DOCKED DEVICE UNSOLICITED RESULTS Final Result Performing Organization Address [facility] Co de Phone Number [facility] [address] [place] [address], [place] [phone] * (ABNORMAL) POCT Glucose, blood (08/05/2024 4:40 PM EST) [facility] Signature Glucose POCT 270(H) 70 - 100 mg/dL 08/05/2024 4:42 PM EST [facility] Blood Capillary blood specimen / Unknown 08/05/2024 4:40 PM EST 08/05/2024 4:43 PM EST us Steve Cruz MD LAB POINT OF WA RE TEST DOCKED DEVICE UNSOLICITED RESULTS Final Result Performing Organization Address [facility] de Phone Number [facility] [address] [place] [address], [place] [phone] * XR Chest 1 View (08/05/2024 1:43 [...] Signed Date: 08/05/2024 13:49 ET Workstation ID: [id number] Transcribed By: Self Edit Transcribed Date: 08/05/2024 [...] Signed Date: 08/05/2024 13:49 ET Workstation ID: [id number] Transcribed By: Self Edit Transcribed Date: 08/05/2024 13:46 ET us Cecily Montez MD IMG XR PROCEDURES Final Result * (ABNORMAL) POCT Glucose, blood (08/05/2024 1:40 PM EST) Pathologist [facility] Glucose POCT 148(H) 70 - 100 mg/dL 08/05/2024 1:41 PM EST [facility] Blood Capillary blood specimen / Unknown 08/05/2024 1:40 PM EST 08/05/2024 1:42 PM EST Steve Cruz MD LAB POINT OF CA RE TEST DOCKED DEVICE UNSOLICITED RESULTS Final Result [facility] [address] [place] [address], * Concentration (08/05/2024 12:32 PM EST) AFB Concentration Performed 025 3:05 PM EST [facility] Structure of upper lobe of right lung / Unknown 08/05/2024 12:32 PM EST 08/05/2024 1:17 PM EST Narrative [facility] - 08/06/2024 3:05 PM EST Performed at: ??01 - [facility] [address] ??[id number] Seasoning Sprayer: Diane Belle MD, Phone: ??[phone] us Cecily Montez MD LAB BLOOD ORDERABLES [...] ORDER SYLVAIN Final Result Performing Organization Address City/[facility]/ZIP Co de Phone Number [facility] [address] [place] [address], [place] [phone] * Culture bronchial with gram stain (08/05/2024 [...] - GENERAL ORDER SYLVAIN Final Result [facility] [address] [place] [address], [place] [phone] * XR Chest 1 View (08/05/2024 12:29 [...] Signed Date: 08/08/2024 07:52 ET Workstation ID: [id number] Transcribed By: Self Edit Transcribed Date: 08/08/2024 [...] Signed Date: 08/08/2024 07:52 ET Workstation ID: [id number] Transcribed By: Self Edit Transcribed Date: 08/08/2024 [...] lymph node elements present. 08/09/2024 1:04 PM [facility] Specimen A Adequacy Satisfactory for evaluation 08/09/2024 1:04 PM [facility] Specimen B Adequacy Satisfactory for evaluation 08/09/2024 1:04 PM [facility] Specimen C Adequacy Satisfactory for evaluation 08/09/2024 1:04 PM [facility] Specimen D Adequacy Satisfactory for evaluation 08/09/2024 1:04 PM [facility] Specimen E Adequacy Specimen processed and examined, but unsatisfactory for eval of abnormal epithelial 08/09/2024 1:04 PM [facility] Specimen F Adequacy Satisfactory for evaluation 08/09/2024 1:04 PM [facility] Gross Description A. Lung, [...] fixation time 54 hours. 08/09/2024 1:04 PM [facility] Disclaimer Unless otherwise specified, all tissue is 10% NB formalin fixed and paraffin embedded. Technical cytopathology services provided by [facility], at [address] [place] [address] (CLIA # [id number]/Gladys Prince MD, Syrup Mixer Helper.) 08/09/2024 1:04 PM EST [facility] [...] Re sult [facility] [address] [place] [address], * (ABNORMAL) Basic metabolic panel (08/05/2024 7:04 AM EST) Sodium 133 133 - 145 mmol/L LAB CHEMISTRY METHOD 08/05/2024 8:01 AM [facility] Potassium 4.5 3.5 - 5.5 mmol/L LAB CHEMISTRY METHOD 08/05/2024 8:01 AM [facility] Chloride 96 96 - 110 mmol/L LAB CHEMISTRY METHOD 08/05/2024 8:01 AM [facility] CO2 32 21 - 32 mmol/L LAB CHEMISTRY METHOD 08/05/2024 8:01 AM [facility] Anion Gap 5 3 - 11 LAB CHEMISTRY METHOD 08/05/2024 8:01 AM [facility] Glucose 138(H) 70 - 100 mg/dL LAB CHEMISTRY METHOD 08/05/2024 8:01 AM [facility] BUN 53(H) 5 - 25 mg/dL LAB CHEMISTRY METHOD 08/05/2024 8:01 AM [facility] Creatinine 3.91(H) 0.50 - 1.10 mg/dL LAB CHEMISTRY METHOD 08/05/2024 8:01 AM [facility] eGFR 11(L) >=60 mL/min/1. 73m2 LAB CHEMISTRY METHOD 08/05/2024 8:01 AM [facility] Comment:Calculation based on the??Chronic Kidney Disease Epidemiology Collaboration (CKD-EPI) equation refit??without adjustment for race. BUN/Creatinine Ratio 13.6 LAB CHEMISTRY METHOD 08/05/2024 8:01 AM [facility] Calcium 8.4(L) 8.5 - 10.5 mg/dL LAB CHEMISTRY METHOD 08/05/2024 8:01 AM [facility] Blood Venous blood specimen / Unknown Venipuncture / Unknown 08/05/2024 7:04 AM EST 08/05/2024 7:34 AM EST Steve Cruz MD LAB BLOOD ORDERABLES Fi nal Result [facility] [address] [place] [address], * (ABNORMAL) CBC - Every 3 Days (08/05/2024 7:03 AM EST) WBC 8.8 4.8 - 10.8 K/mcL LAB HEMETOLOGY METHOD 08/05/2024 7:42 AM [facility] RBC 2.90(L) 3.80 - 4.80 M/mcL LAB HEMETOLOGY METHOD 08/05/2024 7:42 AM [facility] Hemoglobin 7.9(L) 11.5 - 16.0 g/dL LAB HEMETOLOGY METHOD 08/05/2024 7:42 AM [facility] Hematocrit 25.5(L) 35.0 - 47.0 % LAB HEMETOLOGY METHOD 08/05/2024 7:42 AM [facility] MCV 87.6 79.0 - 98.0 FL LAB HEMETOLOGY METHOD 08/05/2024 7:42 AM [facility] MCH 27.1 27.0 - 32.0 pcg LAB HEMETOLOGY METHOD 08/05/2024 7:42 AM EST [facility] MCHC 31.0(L) 32.0 - 37.0 g/dL LAB HEMETOLOGY METHOD 08/05/2024 7:42 AM [facility] RDW 21.9(H) 11.0 - 15.0 % LAB HEMETOLOGY METHOD 08/05/2024 7:42 AM [facility] Platelets 180 130 - 400 K/mcL LAB HEMETOLOGY METHOD 08/05/2024 7:42 AM [facility] MPV 10.8 7.0 - 11.0 FL LAB HEMETOLOGY METHOD 08/05/2024 7:42 AM [facility] NRBC 0.0 <1.0 % LAB HEMETOLOGY METHOD 08/05/2024 7:42 AM [facility] NRBC Absolute 0.00 <0.10 K/mcL LAB HEMETOLOGY METHOD 08/05/2024 7:42 AM [facility] Blood Venous blood specimen / Unknown Venipuncture / Unknown 08/05/2024 7:03 AM EST 08/05/2024 7:34 AM EST us Estdimas Stuart MD LAB BLOOD ORDERABLES Final R esult [facility] [address] [place] [address], * (ABNORMAL) POCT Glucose, blood (08/04/2024 8:39 PM EST) [facility] Glucose POCT 352(H) 70 - 100 mg/dL 08/04/2024 8:40 PM EST [facility] Blood Capillary blood specimen / Unknown 08/04/2024 8:39 PM EST 08/04/2024 8:41 PM EST us Steve Cruz MD LAB POINT OF CA RE TEST DOCKED DEVICE UNSOLICITED RESULTS Final Result Performing Organization Address City/[facility]/ZIP Co de Phone Number [facility] [address] [place] [address], [place] [phone] * (ABNORMAL) POCT Glucose, blood (08/04/2024 5:36 PM EST) Glucose POCT 376(H) 70 - 100 mg/dL 08/04/2024 5:37 PM EST [facility] Blood Capillary blood specimen / Unknown 08/04/2024 5:36 PM EST 08/04/2024 5:38 PM EST us Steve Cruz MD LAB POINT OF CA RE TEST DOCKED DEVICE UNSOLICITED RESULTS Final Result Performing Organization Address City/[facility]/ZIP Co de Phone Number [facility] [address] [place] [address], [place] [phone] * (ABNORMAL) POCT Glucose, blood (08/04/2024 11:05 AM EST) Glucose POCT 130(H) 70 - 100 mg/dL 08/04/2024 11:07 AM EST [facility] Blood Capillary blood specimen / Unknown 08/04/2024 11:05 AM EST 08/04/2024 11:08 AM EST us Steve Cruz MD LAB POINT OF CA RE TEST DOCKED DEVICE UNSOLICITED RESULTS Final Result [facility] [address] [place] [address], [place] [phone] * (ABNORMAL) POCT Glucose, blood (08/04/2024 8:03 AM EST) Glucose POCT 116(H) 70 - 100 mg/dL 08/04/2024 8:05 AM EST [facility] Blood Capillary blood specimen / Unknown 08/04/2024 8:03 AM EST 08/04/2024 8:07 AM EST Steve Cruz MD LAB POINT OF CA RE TEST DOCKED DEVICE UNSOLICITED RESULTS Final Result Performing Organization Address [facility]/ZIP Co de Phone Number [facility] [address] [place] [address], * (ABNORMAL) Creatinine, Serum - Every 7 Days (08/04/2024 6:31 AM EST) [facility] Signature Creatinine 2.49(H) 0.50 - 1.10 mg/dL [...] ORDERABLES Final Re sult Performing Organization Address City/[facility]/ZIP Co de Phone Number [facility] [address] [place] [address], [place] [phone] * (ABNORMAL) POCT Glucose, blood (08/03/2024 9:59 PM EST) Glucose POCT 135(H) 70 - 100 mg/dL 08/03/2024 9:59 PM EST [facility] Blood Capillary blood specimen / Unknown 08/03/2024 9:59 PM EST 08/03/2024 10:00 PM EST us Steve Cruz MD LAB POINT OF CA RE TEST DOCKED DEVICE UNSOLICITED RESULTS Final Result Performing Organization Address [facility]/ZIP Co de Phone Number [facility] [address] [place] [address], [place] [phone] * (ABNORMAL) POCT Glucose, blood (08/03/2024 3:47 PM EST) Glucose POCT 304(H) 70 - 100 mg/dL 08/03/2024 3:48 PM EST [facility] Blood Capillary blood specimen / Unknown 08/03/2024 3:47 PM EST 08/03/2024 3:49 PM EST us Steve Cruz MD LAB POINT OF CA RE TEST DOCKED DEVICE UNSOLICITED RESULTS Final Result Performing Organization Address [facility]/ZIP Co de Phone Number [facility] [address] [place] [address], [place] [phone] * (ABNORMAL) POCT Glucose, blood (08/03/2024 12:35 PM EST) Glucose POCT 125(H) 70 - 100 mg/dL 08/03/2024 12:59 PM EST [facility] Blood Capillary blood specimen / Unknown 08/03/2024 12:35 PM EST 08/03/2024 1:00 PM EST us Steve Cruz MD LAB POINT OF CA RE TEST DOCKED DEVICE UNSOLICITED RESULTS Final Result Performing Organization Address City/[facility]/ZIP Co de Phone Number [facility] [address] [place] [address], [place] [phone] * Hepatitis B surface antigen with reflex to confirmation (08/03/2024 8:49 AM EST) Pathologist [facility] Hepatitis B Surface Ag Negative Negative LAB CHEMISTRY METHOD 08/03/2024 10:11 AM EST [facility] Blood Venous blood specimen / Unknown Venipuncture / Unknown 08/03/2024 8:49 AM EST 08/03/2024 9:22 AM EST [facility] - 08/03/2024 10:11 AM EST Over the counter supplements containing high doses of biotin may interfere with this assay. ??If interference is suspected, patients shoud be retested after refraining from biotin supplements for 72 hours. us Steve Cruz MD LAB BLOOD ORDERABLES Fi nal Result Performing Organization Address [facility] Co de Phone Number [facility] [address] [place] [address], * Hepatitis B surface antibody quantitative (08/03/2024 8:49 AM EST) [facility] Hepatitis B Surface Ab Negative Negative LAB CHEMISTRY METHOD 08/03/2024 9:59 AM EST [facility] Hepatitis B Surface Ab Quantitative <3.1 mIU/mL LAB CHEMISTRY METHOD 08/03/2024 9:59 AM EST [facility] Blood Venous blood specimen / Unknown Venipuncture / Unknown 08/03/2024 8:49 AM EST 08/03/2024 9:22 AM EST [facility] - 08/03/2024 9:59 AM EST >=10 mIU/mL is considered to be consistent with immunity. Steve Cruz MD LAB BLOOD ORDERABLES Fi nal Result Performing Organization Address City/[facility]/ZIP Co de Phone Number [facility] [address] [place] [address], * (ABNORMAL) Complete blood count (08/03/2024 8:49 AM EST) [facility] WBC 8.5 4.8 - 10.8 K/mcL LAB HEMETOLOGY METHOD 08/03/2024 9:28 AM [facility] RBC 2.90(L) 3.80 - 4.80 M/mcL LAB HEMETOLOGY METHOD 08/03/2024 9:28 AM [facility] Hemoglobin 7.7(L) 11.5 - 16.0 g/dL LAB HEMETOLOGY METHOD 08/03/2024 9:28 AM [facility] Hematocrit 24.6(L) 35.0 - 47.0 % LAB HEMETOLOGY METHOD 08/03/2024 9:28 AM [facility] MCV 84.2 79.0 - 98.0 FL LAB HEMETOLOGY METHOD 08/03/2024 9:28 AM [facility] MCH 26.4(L) 27.0 - 32.0 pcg LAB HEMETOLOGY METHOD 08/03/2024 9:28 AM [facility] MCHC 31.3(L) 32.0 - 37.0 g/dL LAB HEMETOLOGY METHOD 08/03/2024 9:28 AM [facility] RDW 21.8(H) 11.0 - 15.0 % LAB HEMETOLOGY METHOD 08/03/2024 9:28 AM [facility] Platelets 186 130 - 400 K/mcL LAB HEMETOLOGY METHOD 08/03/2024 9:28 AM [facility] MPV 10.5 7.0 - 11.0 FL LAB HEMETOLOGY METHOD 08/03/2024 9:28 AM [facility] NRBC 0.0 <1.0 % LAB HEMETOLOGY METHOD 08/03/2024 9:28 AM [facility] NRBC Absolute 0.00 <0.10 K/mcL LAB HEMETOLOGY METHOD 08/03/2024 9:28 AM [facility] Blood Venous blood specimen / Unknown Venipuncture / Unknown 08/03/2024 8:49 AM EST 08/03/2024 9:22 AM EST Steve Cruz MD LAB BLOOD ORDERABLES Fi nal Result [facility] [address] [place] [address], * (ABNORMAL) CBC auto differential (08/03/2024 6:01 AM EST) WBC 7.5 4.8 - 10.8 K/mcL LAB HEMETOLOGY METHOD 08/03/2024 7:49 AM [facility] RBC 2.90(L) 3.80 - 4.80 M/mcL LAB HEMETOLOGY METHOD 08/03/2024 7:49 AM [facility] Hemoglobin 7.8(L) 11.5 - 16.0 g/dL LAB HEMETOLOGY METHOD 08/03/2024 7:49 AM [facility] Hematocrit 24.7(L) 35.0 - 47.0 % LAB HEMETOLOGY METHOD 08/03/2024 7:49 AM [facility] MCV 85.8 79.0 - 98.0 FL LAB HEMETOLOGY METHOD 08/03/2024 7:49 AM [facility] MCH 27.1 27.0 - 32.0 pcg LAB HEMETOLOGY METHOD 08/03/2024 7:49 AM [facility] MCHC 31.6(L) 32.0 - 37.0 g/dL LAB HEMETOLOGY METHOD 08/03/2024 7:49 AM [facility] RDW 21.6(H) 11.0 - 15.0 % LAB HEMETOLOGY METHOD 08/03/2024 7:49 AM [facility] Platelets 188 130 - 400 K/mcL LAB HEMETOLOGY METHOD 08/03/2024 7:49 AM [facility] MPV 11.2(H) 7.0 - 11.0 FL LAB HEMETOLOGY METHOD 08/03/2024 7:49 AM [facility] NRBC 0.0 <1.0 % LAB HEMETOLOGY METHOD 08/03/2024 7:49 AM [facility] NRBC Absolute 0.00 <0.10 K/mcL LAB HEMETOLOGY METHOD 08/03/2024 7:49 AM [facility] Neutrophils Relative 77.2 % LAB HEMETOLOGY METHOD 08/03/2024 7:49 AM [facility] Lymphocytes Relative 12.8 % LAB HEMETOLOGY METHOD 08/03/2024 7:49 AM [facility] Monocytes Relative 8.0 % LAB HEMETOLOGY METHOD 08/03/2024 7:49 AM [facility] Eosinophils Relative 0.4 % LAB HEMETOLOGY METHOD 08/03/2024 7:49 AM [facility] Basophils Relative 0.1 % LAB HEMETOLOGY METHOD 08/03/2024 7:49 AM [facility] Immature Granulocytes Relative 1.5 % LAB HEMETOLOGY METHOD 08/03/2024 7:49 AM [facility] Neutrophils Absolute 5.78 1.50 - 7.00 K/mcL LAB HEMETOLOGY METHOD 08/03/2024 7:49 AM [facility] Lymphocytes Absolute 0.96(L) 1.00 - 5.00 K/mcL LAB HEMETOLOGY METHOD 08/03/2024 7:49 AM [facility] Monocytes Absolute 0.60 0.20 - 1.00 K/mcL LAB HEMETOLOGY METHOD 08/03/2024 7:49 AM EST [facility] Eosinophils Absolute 0.03 0.00 - 0.50 K/mcL LAB HEMETOLOGY METHOD 08/03/2024 7:49 AM [facility] Basophils Absolute 0.01 0.00 - 0.20 K/mcL LAB HEMETOLOGY METHOD 08/03/2024 7:49 AM [facility] Immature Granulocytes Absolute 0.11(H) 0.00 - 0.03 K/mcL LAB HEMETOLOGY METHOD 08/03/2024 7:49 AM [facility] Blood Venous blood specimen / Unknown Venipuncture / Unknown 08/03/2024 6:01 AM EST 08/03/2024 7:27 AM EST us tSeve Cruz MD LAB BLOOD ORDERABLES Fi nal Result Performing Organization Address City/[facility]/ZIP Co de Phone Number [facility] [address] [place] [address], [place] [phone] * Magnesium (08/03/2024 6:01 AM EST) Magnesium 2.1 1.9 - 2.6 mg/dL LAB CHEMISTRY METHOD 08/03/2024 8:11 AM [facility] Blood Venous blood specimen / Unknown Venipuncture / Unknown 08/03/2024 6:01 AM EST 08/03/2024 7:27 AM EST Steve Cruz MD LAB BLOOD ORDERABLES Fi nal Result [facility] [address] [place] [address], [place] [phone] * Phosphorus (08/03/2024 6:01 AM EST) Phosphorus 4.3 2.5 - 4.5 mg/dL LAB CHEMISTRY METHOD 08/03/2024 8:11 AM [facility] Blood Venous blood specimen / Unknown Venipuncture / Unknown 08/03/2024 6:01 AM EST 08/03/2024 7:27 AM EST us Steve Cruz MD LAB BLOOD ORDERABLES Fi nal Result Performing Organization Address [facility]/ZIP Co de Phone Number [facility] [address] [place] [address], [place] [phone] * (ABNORMAL) POCT Glucose, blood (08/02/2024 7:33 PM EST) Glucose POCT 241(H) 70 - 100 mg/dL 08/02/2024 7:34 PM EST [facility] Blood Capillary blood specimen / Unknown 08/02/2024 7:33 PM EST 08/02/2024 7:35 PM EST us Steve Cruz MD LAB POINT OF CA RE TEST DOCKED DEVICE UNSOLICITED RESULTS Final Result Performing Organization Address [facility]/ZIP Co de Phone Number [facility] [address] [place] [address], [place] [phone] * (ABNORMAL) POCT Glucose, blood (08/02/2024 4:27 PM EST) Glucose POCT 212(H) 70 - 100 mg/dL 08/02/2024 4:29 PM EST [facility] Blood Capillary blood specimen / Unknown 08/02/2024 4:27 PM EST 08/02/2024 4:29 PM EST us Steve Cruz MD LAB POINT OF CA RE TEST DOCKED DEVICE UNSOLICITED RESULTS Final Result Performing Organization Address City/[facility]/ZIP Co de Phone Number [facility] [address] [place] [address], [place] [phone] * Type and screen (08/02/2024 3:04 PM EST) ABO Group O 08/02/2024 4:52 PM EST [facility] Rh Type Positive 08/02/2024 4:52 PM [facility] Antibody Screen Negative 08/02/2024 4:52 PM [facility] Blood Venous blood specimen / Unknown Venipuncture / Unknown 08/02/2024 3:04 PM EST 08/02/2024 4:07 PM EST Steve Cruz MD LAB BLOOD BANK TEST ORD ERABLES Final Result [facility] [address] [place] [address], * Prepare RBC: 1 Units (08/02/2024 2:09 PM EST) Product Code [id number] 08/02/2024 6:27 PM [facility] Unit Number [id number] 08/02/19 6:27 PM [facility] Crossmatch Compatible 08/02/2024 5:03 PM [facility] Dispense Status Transfused 08/02/2024 6:27 PM [facility] Unit ABO Rh OPOS 08/02/2024 6:27 PM [facility] Unit Expiration Date Time [id number] 08/02/2024 6:27 PM [facility] Unit Blood Type 5100 08/02/2024 6:27 PM [facility] Blood Venous blood specimen / Unknown 08/02/2024 2:09 PM EST 08/02/2024 4:07 PM EST Steve Cruz MD BLOOD BANK PRODUCT ANNALISA MARI Final Result Performing Organization Address [facility]/ZIP Co de Phone Number [facility] [address] [place] [address], [place] [phone] * (ABNORMAL) POCT Glucose, blood (08/02/2024 11:26 AM EST) Glucose POCT 153(H) 70 - 100 mg/dL 08/02/2024 11:41 AM EST [facility] Blood Capillary blood specimen / Unknown 08/02/2024 11:26 AM EST 08/02/2024 11:43 AM EST us Steve Cruz MD LAB POINT OF CA RE TEST DOCKED DEVICE UNSOLICITED RESULTS Final Result Performing Organization Address [facility]/ZIP Co de Phone Number [facility] [address] [place] [address], [place] [phone] * POCT Glucose, blood (08/02/2024 7:46 AM EST) [facility] Signature Glucose POCT 90 70 - 100 mg/dL 08/02/2024 7:46 AM EST [facility] Blood Capillary blood specimen / Unknown 08/02/2024 7:46 AM EST 08/02/2024 7:48 AM EST us Steve Cruz MD LAB POINT OF CA RE TEST DOCKED DEVICE UNSOLICITED RESULTS Final Result Performing Organization Address City/[facility]/ZIP Co de Phone Number [facility] [address] [place] [address], [place] [phone] * (ABNORMAL) CBC - Every 3 Days (08/02/2024 6:06 AM EST) WBC 8.0 4.8 - 10.8 K/[facility] LAB HEMETOLOGY METHOD 08/02/2024 7:45 AM [facility] RBC 2.70(L) 3.80 - 4.80 M/mcL LAB HEMETOLOGY METHOD 08/02/2024 7:45 AM [facility] Hemoglobin 7.0(L) 11.5 - 16.0 g/dL LAB HEMETOLOGY METHOD 08/02/2024 7:45 AM [facility] Hematocrit 22.9(L) 35.0 - 47.0 % LAB HEMETOLOGY METHOD 08/02/2024 7:45 AM [facility] MCV 84.2 79.0 - 98.0 FL LAB HEMETOLOGY METHOD 08/02/2024 7:45 AM [facility] MCH 25.7(L) 27.0 - 32.0 pcg LAB HEMETOLOGY METHOD 08/02/2024 7:45 AM [facility] MCHC 30.6(L) 32.0 - 37.0 g/dL LAB HEMETOLOGY METHOD 08/02/2024 7:45 AM [facility] RDW 23.4(H) 11.0 - 15.0 % LAB HEMETOLOGY METHOD 08/02/2024 7:45 AM [facility] Platelets 205 130 - 400 K/mcL LAB HEMETOLOGY METHOD 08/02/2024 7:45 AM [facility] MPV 11.0 7.0 - 11.0 FL LAB HEMETOLOGY METHOD 08/02/2024 7:45 AM [facility] NRBC 0.0 <1.0 % LAB HEMETOLOGY METHOD 08/02/2024 7:45 AM [facility] NRBC Absolute 0.00 <0.10 K/mcL LAB HEMETOLOGY METHOD 08/02/2024 7:45 AM [facility] Blood Venous blood specimen / Unknown Venipuncture / Unknown 08/02/2024 6:06 AM EST 08/02/2024 7:23 AM EST us Lencho Stuart MD LAB BLOOD ORDERABLES Final R esult Performing Organization Address City/[facility]/ZIP Co de Phone Number [facility] [address] [place] [address], [place] [phone] * (ABNORMAL) POCT Glucose, blood (08/01/2024 7:43 PM EST) Glucose POCT 209(H) 70 - 100 mg/dL 08/01/2024 7:44 PM EST [facility] Blood Capillary blood specimen / Unknown 08/01/2024 7:43 PM EST 08/01/2024 7:44 PM EST us Steve Cruz MD LAB POINT OF CA RE TEST DOCKED DEVICE UNSOLICITED RESULTS Final Result Performing Organization Address City/[facility]/ZIP Co de Phone Number [facility] [address] [place] [address], [place] [phone] * (ABNORMAL) POCT Glucose, blood (08/01/2024 5:20 PM EST) Glucose POCT 168(H) 70 - 100 mg/dL 08/01/2024 5:21 PM EST [facility] Blood Capillary blood specimen / Unknown 08/01/2024 5:20 PM EST 08/01/2024 5:22 PM EST us Steve Cruz MD LAB POINT OF CA RE TEST DOCKED DEVICE UNSOLICITED RESULTS Final Result Performing Organization Address City/[facility]/ZIP Co de Phone Number [facility] [address] [place] [address], [place] [phone] * (ABNORMAL) POCT Glucose, blood (08/01/2024 11:03 AM EST) Glucose POCT 149(H) 70 - 100 mg/dL 08/01/2024 11:03 AM EST [facility] Blood Capillary blood specimen / Unknown 08/01/2024 11:03 AM EST 08/01/2024 11:04 AM EST us Steve Cruz MD LAB POINT OF CA RE TEST DOCKED DEVICE UNSOLICITED RESULTS Final Result Performing Organization Address City/[facility]/ZIP Co de Phone Number [facility] [address] [place] [address], [place] [phone] * (ABNORMAL) POCT Glucose, blood (08/01/2024 8:59 AM EST) Glucose POCT 128(H) 70 - 100 mg/dL 08/01/2024 9:01 AM EST [facility] Blood Capillary blood specimen / Unknown 08/01/2024 8:59 AM EST 08/01/2024 9:02 AM EST us Steve Cruz MD LAB POINT OF CA RE TEST DOCKED DEVICE UNSOLICITED RESULTS Final Result Performing Organization Address [facility] Co de Phone Number [facility] [address] [place] [address], [place] [phone] * POCT Glucose, blood (08/01/2024 7:34 AM EST) Glucose POCT 75 70 - 100 mg/dL 08/01/2024 7:35 AM EST [facility] Blood Capillary blood specimen / Unknown 08/01/2024 7:34 AM EST 08/01/2024 7:36 AM EST us Steve Cruz MD LAB POINT OF CA RE TEST DOCKED DEVICE UNSOLICITED RESULTS Final Result Performing Organization Address City/[facility]/ZIP Co de Phone Number [facility] [address] [place] [address], * (ABNORMAL) CBC auto differential (08/01/2024 6:59 AM EST) [facility] WBC 9.2 4.8 - 10.8 K/mcL LAB HEMETOLOGY METHOD 08/01/2024 8:20 AM [facility] RBC 3.00(L) 3.80 - 4.80 M/mcL LAB HEMETOLOGY METHOD 08/01/2024 8:20 AM [facility] Hemoglobin 7.7(L) 11.5 - 16.0 g/dL LAB HEMETOLOGY METHOD 08/01/2024 8:20 AM [facility] Hematocrit 25.2(L) 35.0 - 47.0 % LAB HEMETOLOGY METHOD 08/01/2024 8:20 AM [facility] MCV 84.6 79.0 - 98.0 FL LAB HEMETOLOGY METHOD 08/01/2024 8:20 AM [facility] MCH 25.8(L) 27.0 - 32.0 pcg LAB HEMETOLOGY METHOD 08/01/2024 8:20 AM [facility] MCHC 30.6(L) 32.0 - 37.0 g/dL LAB HEMETOLOGY METHOD 08/01/2024 8:20 AM [facility] RDW 23.5(H) 11.0 - 15.0 % LAB HEMETOLOGY METHOD 08/01/2024 8:20 AM [facility] Platelets 220 130 - 400 K/mcL LAB HEMETOLOGY METHOD 08/01/2024 8:20 AM [facility] MPV 11.3(H) 7.0 - 11.0 FL LAB HEMETOLOGY METHOD 08/01/2024 8:20 AM [facility] NRBC 0.0 <1.0 % LAB HEMETOLOGY METHOD 08/01/2024 8:20 AM [facility] NRBC Absolute 0.00 <0.10 K/mcL LAB HEMETOLOGY METHOD 08/01/2024 8:20 AM [facility] Neutrophils Relative 77.4 % LAB HEMETOLOGY METHOD 08/01/2024 8:20 AM [facility] Lymphocytes Relative 12.6 % LAB HEMETOLOGY METHOD 08/01/2024 8:20 AM [facility] Monocytes Relative 7.6 % LAB HEMETOLOGY METHOD 08/01/2024 8:20 AM [facility] Eosinophils Relative 0.9 % LAB HEMETOLOGY METHOD 08/01/2024 8:20 AM [facility] Basophils Relative 0.1 % LAB HEMETOLOGY METHOD 08/01/2024 8:20 AM [facility] Immature Granulocytes Relative 1.4 % LAB HEMETOLOGY METHOD 08/01/2024 8:20 AM [facility] Neutrophils Absolute 7.09(H) 1.50 - 7.00 K/mcL LAB HEMETOLOGY METHOD 08/01/2024 8:20 AM [facility] Lymphocytes Absolute 1.16 1.00 - 5.00 K/mcL LAB HEMETOLOGY METHOD 08/01/2024 8:20 AM [facility] Monocytes Absolute 0.70 0.20 - 1.00 K/mcL LAB HEMETOLOGY METHOD 08/01/2024 8:20 AM [facility] Eosinophils Absolute 0.08 0.00 - 0.50 K/mcL LAB HEMETOLOGY METHOD 08/01/2024 8:20 AM [facility] Basophils Absolute 0.01 0.00 - 0.20 K/mcL LAB HEMETOLOGY METHOD 08/01/2024 8:20 AM [facility] Immature Granulocytes Absolute 0.13(H) 0.00 - 0.03 K/mcL LAB HEMETOLOGY METHOD 08/01/2024 8:20 AM EST [facility] Blood Venous blood specimen / Unknown Existing Catheter / Unknown 08/01/2024 6:59 AM EST 08/01/2024 8:07 AM EST us Jonny Mathur MD LAB BLOOD ORDERABLES Final Re sult [facility] [address] [place] [address], [place] [phone] * (ABNORMAL) Basic metabolic panel (08/01/2024 6:59 AM EST) Sodium 132(L) 133 - 145 mmol/L LAB CHEMISTRY METHOD 08/01/2024 8:41 AM [facility] Potassium 4.7 3.5 - 5.5 mmol/L LAB CHEMISTRY METHOD 08/01/2024 8:41 AM [facility] Chloride 96 96 - 110 mmol/L LAB CHEMISTRY METHOD 08/01/2024 8:41 AM [facility] CO2 30 21 - 32 mmol/L LAB CHEMISTRY METHOD 08/01/2024 8:41 AM [facility] Anion Gap 6 3 - 11 LAB CHEMISTRY METHOD 08/01/2024 8:41 AM [facility] Glucose 74 70 - 100 mg/dL LAB CHEMISTRY METHOD 08/01/2024 8:41 AM [facility] BUN 71(H) 5 - 25 mg/dL LAB CHEMISTRY METHOD 08/01/2024 8:41 AM [facility] Creatinine 4.62(H) 0.50 - 1.10 mg/dL LAB CHEMISTRY METHOD 08/01/2024 8:41 AM [facility] eGFR 9(L) >=60 mL/min/1. 73m2 LAB CHEMISTRY METHOD 08/01/2024 8:41 AM [facility] [...] ORDERABLES Final Re sult Performing Organization Address [facility]/ZIP Co de Phone Number [facility] [address] [place] [address], [place] [phone] * (ABNORMAL) POCT Glucose, blood (07/31/2024 8:23 PM EST) Glucose POCT 279(H) 70 - 100 mg/dL 07/31/2024 8:24 PM EST [facility] POCT Comment RN Notified 07/31/2024 8:24 PM [facility] Blood Capillary blood specimen / Unknown 07/31/2024 8:23 PM EST 07/31/2024 8:25 PM EST us Jonny Mathur MD LAB POINT OF CARE TE ST DOCKED DEVICE UNSOLICITED RESULTS Final Result Performing Organization Address [facility]/ZIP Co de Phone Number [facility] [address] [place] [address], [place] [phone] * (ABNORMAL) POCT Glucose, blood (07/31/2024 4:20 PM EST) Glucose POCT 241(H) 70 - 100 mg/dL 07/31/2024 4:21 PM EST [facility] Blood Capillary blood specimen / Unknown 07/31/2024 4:20 PM EST 07/31/2024 4:22 PM EST us Jonny Mathur MD LAB POINT OF CARE TE ST DOCKED DEVICE UNSOLICITED RESULTS Final Result Performing Organization Address [facility]/ZIP Co de Phone Number [facility] [address] [place] [address], [place] [phone] * (ABNORMAL) Hemoglobin and hematocrit (07/31/2024 2:30 [...] ORDERABLES Final Re sult Performing Organization Address [facility]/ZIP Co de Phone Number [facility] [address] [place] [address], [place] [phone] * (ABNORMAL) POCT Glucose, blood (07/31/2024 11:22 AM EST) Glucose POCT 132(H) 70 - 100 mg/dL 07/31/2024 11:24 AM EST [facility] Blood Capillary blood specimen / Unknown 07/31/2024 11:22 AM EST 07/31/2024 11:25 AM EST us Jonny Mathur MD LAB POINT OF CARE TE ST DOCKED DEVICE UNSOLICITED RESULTS Final Result [facility] [address] [place] [address], [place] [phone] * (ABNORMAL) POCT Glucose, blood (07/31/2024 8:06 AM EST) [facility] Glucose POCT 112(H) 70 - 100 mg/dL 07/31/2024 8:06 AM EST [facility] Blood Capillary blood specimen / Unknown 07/31/2024 8:06 AM EST 07/31/2024 8:08 AM EST Jonny Mathur MD LAB POINT OF CARE TE ST DOCKED DEVICE UNSOLICITED RESULTS Final Result Performing Organization Address City/[facility]/ZIP Co de Phone Number [facility] [address] [place] [address], [place] [phone] * (ABNORMAL) CBC auto differential (07/31/2024 5:43 AM EST) [facility] WBC 7.4 4.8 - 10.8 K/mcL LAB HEMETOLOGY METHOD 07/31/2024 7:02 AM [facility] RBC 2.60(L) 3.80 - 4.80 M/mcL LAB HEMETOLOGY METHOD 07/31/2024 7:02 AM [facility] Hemoglobin 6.7(L) 11.5 - 16.0 g/dL LAB HEMETOLOGY METHOD 07/31/2024 7:02 AM [facility] LAB Hematocrit 22.0(L) 35.0 - 47.0 % LAB HEMETOLOGY METHOD 07/31/2024 7:02 AM [facility] LAB MCV 84.0 79.0 - 98.0 FL LAB HEMETOLOGY METHOD 07/31/2024 7:02 AM [facility] LAB MCH 25.6(L) 27.0 - 32.0 pcg LAB HEMETOLOGY METHOD 07/31/2024 7:02 AM [facility] LAB MCHC 30.5(L) 32.0 - 37.0 g/dL LAB HEMETOLOGY METHOD 07/31/2024 7:02 AM [facility] RDW 23.1(H) 11.0 - 15.0 % LAB HEMETOLOGY METHOD 07/31/2024 7:02 AM [facility] LAB Platelets 183 130 - 400 K/mcL LAB HEMETOLOGY METHOD 07/31/2024 7:02 AM [facility] LAB MPV 11.1(H) 7.0 - 11.0 FL LAB HEMETOLOGY METHOD 07/31/2024 7:02 AM [facility] LAB NRBC 0.0 <1.0 % LAB HEMETOLOGY METHOD 07/31/2024 7:02 AM [facility] LAB NRBC Absolute 0.00 <0.10 K/mcL LAB HEMETOLOGY METHOD 07/31/2024 7:02 AM [facility] LAB Neutrophils Relative 77.7 % LAB HEMETOLOGY METHOD 07/31/2024 7:02 AM [facility] Lymphocytes Relative 11.7 % LAB HEMETOLOGY METHOD 07/31/2024 7:02 AM [facility] Monocytes Relative 8.6 % LAB HEMETOLOGY METHOD 07/31/2024 7:02 AM [facility] Eosinophils Relative 0.3 % LAB HEMETOLOGY METHOD 07/31/2024 7:02 AM [facility] Basophils Relative 0.1 % LAB HEMETOLOGY METHOD 07/31/2024 7:02 AM [facility] Immature Granulocytes Relative 1.6 % LAB HEMETOLOGY METHOD 07/31/2024 7:02 AM [facility] LAB Neutrophils Absolute 5.77 1.50 - 7.00 K/mcL LAB HEMETOLOGY METHOD 07/31/2024 7:02 AM EST [facility] Lymphocytes Absolute 0.87(L) 1.00 - 5.00 K/mcL LAB HEMETOLOGY METHOD 07/31/2024 7:02 AM EST [facility] Monocytes Absolute 0.64 0.20 - 1.00 K/mcL LAB HEMETOLOGY METHOD 07/31/2024 7:02 AM [facility] Eosinophils Absolute 0.02 0.00 - 0.50 K/mcL LAB HEMETOLOGY METHOD 07/31/2024 7:02 AM [facility] Basophils Absolute 0.01 0.00 - 0.20 K/mcL LAB HEMETOLOGY METHOD 07/31/2024 7:02 AM [facility] Immature Granulocytes Absolute 0.12(H) 0.00 - 0.03 K/mcL LAB HEMETOLOGY METHOD 07/31/2024 7:02 AM [facility] Blood Venous blood specimen / Unknown Existing Catheter / Unknown 07/31/2024 5:43 AM EST 07/31/2024 6:34 AM EST Jonny Mathur MD LAB BLOOD ORDERABLES Final Re sult [facility] [address] [place] [address], * (ABNORMAL) Basic metabolic panel (07/31/2024 5:43 AM EST) Sodium 132(L) 133 - 145 mmol/L LAB CHEMISTRY METHOD 07/31/2024 7:22 AM [facility] Potassium 4.4 3.5 - 5.5 mmol/L LAB CHEMISTRY METHOD 07/31/2024 7:22 AM [facility] Chloride 94(L) 96 - 110 mmol/L LAB CHEMISTRY METHOD 07/31/2024 7:22 AM [facility] CO2 31 21 - 32 mmol/L LAB CHEMISTRY METHOD 07/31/2024 7:22 AM [facility] Anion Gap 7 3 - 11 LAB CHEMISTRY METHOD 07/31/2024 7:22 AM [facility] Glucose 123(H) 70 - 100 mg/dL LAB CHEMISTRY METHOD 07/31/2024 7:22 AM [facility] BUN 54(H) 5 - 25 mg/dL LAB CHEMISTRY METHOD 07/31/2024 7:22 AM [facility] Creatinine 3.73(H) 0.50 - 1.10 mg/dL LAB CHEMISTRY METHOD 07/31/2024 7:22 AM [facility] LAB eGFR 12(L) >=60 mL/min/1. 73m2 LAB CHEMISTRY METHOD 07/31/2024 7:22 AM [facility] LAB Comment:Calculation based on the??Chronic Kidney Disease Epidemiology Collaboration (CKD-EPI) equation refit??without adjustment for race. BUN/Creatinine Ratio 14.5 LAB CHEMISTRY METHOD 07/31/2024 7:22 AM [facility] Calcium 8.3(L) 8.5 - 10.5 mg/dL LAB CHEMISTRY METHOD 07/31/2024 7:22 AM [facility] Blood Venous blood specimen / Unknown Existing Catheter / Unknown 07/31/2024 5:43 AM EST 07/31/2024 6:36 AM EST us Jonny Mathur MD LAB BLOOD ORDERABLES Final Re sult [facility] [address] [place] [address], * (ABNORMAL) POCT Glucose, blood (07/30/2024 7:51 PM EST) Glucose POCT 315(H) 70 - 100 mg/dL 07/30/2024 7:51 PM [facility] Blood Capillary blood specimen / Unknown 07/30/2024 7:51 PM EST 07/30/2024 7:52 PM EST us Jonny Mathur MD LAB POINT OF CARE TE ST DOCKED DEVICE UNSOLICITED RESULTS Final Result Performing Organization Address [facility]/ZIP Co de Phone Number [facility] [address] [place] [address], [place] [phone] * (ABNORMAL) POCT Glucose, blood (07/30/2024 5:02 PM EST) Glucose POCT 299(H) 70 - 100 mg/dL 07/30/2024 5:03 PM EST [facility] Blood Capillary blood specimen / Unknown 07/30/2024 5:02 PM EST 07/30/2024 5:04 PM EST us Jonny Mathur MD LAB POINT OF CARE TE ST DOCKED DEVICE UNSOLICITED RESULTS Final Result Performing Organization Address [facility]/ZIP [facility] Phone Number [facility] [address] [place] [address], [place] [phone] * (ABNORMAL) Hemoglobin and hematocrit (07/30/2024 3:32 [...] Re sult [facility] [address] [place] [address], [place] [phone] * (ABNORMAL) Hepatic Function Panel - STAT (07/30/2024 11:52 AM EST) Total Protein 5.2(L) 6.0 - 8.0 g/dL LAB CHEMISTRY METHOD 07/30/2024 12:56 PM EST [facility] Albumin 2.4(L) 3.2 - 5.0 g/dL LAB CHEMISTRY METHOD 07/30/2024 12:56 PM EST [facility] Total Bilirubin 0.4 0.0 - 1.4 mg/dL LAB CHEMISTRY METHOD 07/30/2024 12:56 PM [facility] Bilirubin, Direct 0.2 0.0 - 0.3 mg/dL LAB CHEMISTRY METHOD 07/30/2024 12:56 PM EST [facility] Bilirubin, Indirect 0.2 0.0 - 1.1 mg/dL LAB CHEMISTRY METHOD 07/30/2024 12:56 PM EST [facility] ALT (SGPT) 17 10 - 60 unit/L LAB CHEMISTRY METHOD 07/30/2024 12:56 PM [facility] AST (SGOT) 12 10 - 42 unit/L LAB CHEMISTRY METHOD 07/30/2024 12:56 PM EST [facility] Alkaline Phosphatase 80 42 - 121 unit/L LAB CHEMISTRY METHOD 07/30/2024 12:56 PM [facility] Blood Venous blood specimen / Unknown Venipuncture / Unknown 07/30/2024 11:52 AM EST 07/30/2024 12:28 PM EST Jonny Mathur MD LAB BLOOD ORDERABLES Final Re sult [facility] [address] [place] [address], [place] [phone] * (ABNORMAL) POCT Glucose, blood (07/30/2024 11:22 AM EST) Glucose POCT 182(H) 70 - 100 mg/dL 07/30/2024 11:25 AM EST [facility] Blood Capillary blood specimen / Unknown 07/30/2024 11:22 AM EST 07/30/2024 11:25 AM EST Jonny Mathur MD LAB POINT OF CARE TE ST DOCKED DEVICE UNSOLICITED RESULTS Final Result [facility] [address] [place] [address], [place] [phone] * (ABNORMAL) POCT Glucose, blood (07/30/2024 7:47 AM EST) Glucose POCT 173(H) 70 - 100 mg/dL 07/30/2024 7:48 AM EST [facility] Blood Capillary blood specimen / Unknown 07/30/2024 7:47 AM EST 07/30/2024 7:49 AM EST Jonny Mathur MD LAB POINT OF CARE TE ST DOCKED DEVICE UNSOLICITED RESULTS Final Result Performing Organization Address City/[facility]/ZIP Co de Phone Number [facility] [address] [place] [address], [place] [phone] * (ABNORMAL) CBC - Every 3 Days (07/30/2024 6:10 AM EST) WBC 8.0 4.8 - 10.8 K/[facility] LAB HEMETOLOGY METHOD 07/30/2024 6:55 AM EST [facility] RBC 2.90(L) 3.80 - 4.80 M/mcL LAB HEMETOLOGY METHOD 07/30/2024 6:55 AM EST [facility] Hemoglobin 7.2(L) 11.5 - 16.0 g/dL LAB HEMETOLOGY METHOD 07/30/2024 6:55 AM [facility] Hematocrit 23.9(L) 35.0 - 47.0 % LAB HEMETOLOGY METHOD 07/30/2024 6:55 AM [facility] MCV 83.6 79.0 - 98.0 FL LAB HEMETOLOGY METHOD 07/30/2024 6:55 AM [facility] MCH 25.2(L) 27.0 - 32.0 pcg LAB HEMETOLOGY METHOD 07/30/2024 6:55 AM [facility] MCHC 30.1(L) 32.0 - 37.0 g/dL LAB HEMETOLOGY METHOD 07/30/2024 6:55 AM [facility] RDW 22.9(H) 11.0 - 15.0 % LAB HEMETOLOGY METHOD 07/30/2024 6:55 AM [facility] Platelets 176 130 - 400 K/mcL LAB HEMETOLOGY METHOD 07/30/2024 6:55 AM [facility] MPV 10.7 7.0 - 11.0 FL LAB HEMETOLOGY METHOD 07/30/2024 6:55 AM [facility] NRBC 0.0 <1.0 % LAB HEMETOLOGY METHOD 07/30/2024 6:55 AM [facility] NRBC Absolute 0.00 <0.10 K/mcL LAB HEMETOLOGY METHOD 07/30/2024 6:55 AM [facility] Blood Venous blood specimen / Unknown Venipuncture / Unknown 07/30/2024 6:10 AM EST 07/30/2024 6:25 AM EST [facility] LAB BLOOD ORDERABLES Final R esult [facility] [address] [place] [address], [place] [phone] * (ABNORMAL) Heparin and low molecular weight [...] Re sult [facility] [address] [place] [address], [place] [phone] * (ABNORMAL) POCT Glucose, blood (07/29/2024 8:11 PM EST) [facility] Signature Glucose POCT 321(H) 70 - 100 mg/dL 07/29/2024 8:19 PM EST [facility] Blood Capillary blood specimen / Unknown 07/29/2024 8:11 PM EST 07/29/2024 8:20 PM EST us Jonny Mathur MD LAB POINT OF CARE TE ST DOCKED DEVICE UNSOLICITED RESULTS Final Result [facility] [address] [place] [address], [place] [phone] * (ABNORMAL) POCT Glucose, blood (07/29/2024 4:19 PM EST) Glucose POCT 267(H) 70 - 100 mg/dL 07/29/2024 4:21 PM EST [facility] Blood Capillary blood specimen / Unknown 07/29/2024 4:19 PM EST 07/29/2024 4:22 PM EST us Jonny Mathur MD LAB POINT OF CARE TE ST DOCKED DEVICE UNSOLICITED RESULTS Final Result [facility] [address] [place] [address], [place] [phone] * Hepatitis B surface antigen with reflex [...] Re sult [facility] [address] [place] [address], [place] [phone] * (ABNORMAL) POCT Glucose, blood (07/29/2024 11:23 AM EST) Glucose POCT 108(H) 70 - 100 mg/dL 07/29/2024 11:30 AM EST [facility] Blood Capillary blood specimen / Unknown 07/29/2024 11:23 AM EST 07/29/2024 11:31 AM EST us Jonny Mathur MD LAB POINT OF CARE TE ST DOCKED DEVICE UNSOLICITED RESULTS Final Result Performing Organization Address City/[facility]/ZIP Co de Phone Number [facility] [address] [place] [address], [place] [phone] * Heparin and low molecular weight anti Xa level (07/29/2024 5:54 AM EST) Heparin Anti-Xa 0.61 0.30 - 0.70 I Unit/mL LAB COAGULATION METHOD 07/29/2024 6:54 AM EST [facility] Blood Venous blood specimen / Unknown Venipuncture / Unknown 07/29/2024 5:54 AM EST 07/29/2024 6:34 AM EST [facility] - 07/29/2024 6:54 AM EST Therapeutic range listed is for Unfractionated Heparin. LMW Heparin therapeutic range: 0.50-1.20 IU/mL Jonny Mathur MD LAB BLOOD ORDERABLES Final Re sult Performing Organization Address City/[facility]/ZIP Co de Phone Number [facility] [address] [place] [address], [place] [phone] * (ABNORMAL) CBC auto differential (07/29/2024 5:54 AM EST) WBC 7.3 4.8 - 10.8 K/mcL LAB HEMETOLOGY METHOD 07/29/2024 6:55 AM [facility] RBC 2.60(L) 3.80 - 4.80 M/mcL LAB HEMETOLOGY METHOD 07/29/2024 6:55 AM [facility] Hemoglobin 6.7(L) 11.5 - 16.0 g/dL LAB HEMETOLOGY METHOD 07/29/2024 6:55 AM [facility] Hematocrit 21.7(L) 35.0 - 47.0 % LAB HEMETOLOGY METHOD 07/29/2024 6:55 AM [facility] MCV 82.8 79.0 - 98.0 FL LAB HEMETOLOGY METHOD 07/29/2024 6:55 AM [facility] MCH 25.6(L) 27.0 - 32.0 pcg LAB HEMETOLOGY METHOD 07/29/2024 6:55 AM [facility] MCHC 30.9(L) 32.0 - 37.0 g/dL LAB HEMETOLOGY METHOD 07/29/2024 6:55 AM [facility] RDW 23.1(H) 11.0 - 15.0 % LAB HEMETOLOGY METHOD 07/29/2024 6:55 AM [facility] LAB Platelets 146 130 - 400 K/mcL LAB HEMETOLOGY METHOD 07/29/2024 6:55 AM [facility] MPV 10.7 7.0 - 11.0 FL LAB HEMETOLOGY METHOD 07/29/2024 6:55 AM [facility] NRBC 0.0 <1.0 % LAB HEMETOLOGY METHOD 07/29/2024 6:55 AM [facility] NRBC Absolute 0.00 <0.10 K/mcL LAB HEMETOLOGY METHOD 07/29/2024 6:55 AM [facility] Neutrophils Relative 83.4 % LAB HEMETOLOGY METHOD 07/29/2024 6:55 AM [facility] Lymphocytes Relative 8.2 % LAB HEMETOLOGY METHOD 07/29/2024 6:55 AM [facility] Monocytes Relative 6.1 % LAB HEMETOLOGY METHOD 07/29/2024 6:55 AM [facility] Eosinophils Relative 0.3 % LAB HEMETOLOGY METHOD 07/29/2024 6:55 AM [facility] Basophils Relative 0.1 % LAB HEMETOLOGY METHOD 07/29/2024 6:55 AM [facility] Immature Granulocytes Relative 1.9 % LAB HEMETOLOGY METHOD 07/29/2024 6:55 AM EST [facility] Neutrophils Absolute 6.11 1.50 - 7.00 K/[facility] LAB HEMETOLOGY METHOD 07/29/2024 6:55 AM [facility] Lymphocytes Absolute 0.60(L) 1.00 - 5.00 K/mcL LAB HEMETOLOGY METHOD 07/29/2024 6:55 AM EST [facility] Monocytes Absolute 0.45 0.20 - 1.00 K/mcL LAB HEMETOLOGY METHOD 07/29/2024 6:55 AM [facility] Eosinophils Absolute 0.02 0.00 - 0.50 K/[facility] LAB HEMETOLOGY METHOD 07/29/2024 6:55 AM [facility] Basophils Absolute 0.01 0.00 - 0.20 K/mcL LAB HEMETOLOGY METHOD 07/29/2024 6:55 AM EST [facility] Immature Granulocytes Absolute 0.14(H) 0.00 - 0.03 K/mcL LAB HEMETOLOGY METHOD 07/29/2024 6:55 AM [facility] Blood Venous blood specimen / Unknown Venipuncture / Unknown 07/29/2024 5:54 AM EST 07/29/2024 6:34 AM EST us Jonny Matuhr MD LAB BLOOD ORDERABLES Final Re sult [facility] [address] [place] [address], * (ABNORMAL) Basic metabolic panel (07/29/2024 5:54 AM EST) Sodium 131(L) 133 - 145 mmol/L LAB CHEMISTRY METHOD 07/29/2024 7:22 AM EST [facility] Potassium 4.2 3.5 - 5.5 mmol/L LAB CHEMISTRY METHOD 07/29/2024 7:22 AM [facility] Chloride 95(L) 96 - 110 mmol/L LAB CHEMISTRY METHOD 07/29/2024 7:22 AM [facility] CO2 31 21 - 32 mmol/L LAB CHEMISTRY METHOD 07/29/2024 7:22 AM [facility] Anion Gap 5 3 - 11 LAB CHEMISTRY METHOD 07/29/2024 7:22 AM [facility] Glucose 180(H) 70 - 100 mg/dL LAB CHEMISTRY METHOD 07/29/2024 7:22 AM [facility] BUN 49(H) 5 - 25 mg/dL LAB CHEMISTRY METHOD 07/29/2024 7:22 AM [facility] Creatinine 3.73(H) 0.50 - 1.10 mg/dL LAB CHEMISTRY METHOD 07/29/2024 7:22 AM [facility] LAB eGFR 12(L) >=60 mL/min/1. 73m2 LAB CHEMISTRY METHOD 07/29/2024 7:22 AM [facility] LAB Comment:Calculation based on the??Chronic Kidney Disease Epidemiology Collaboration (CKD-EPI) equation refit??without adjustment for race. BUN/Creatinine Ratio 13.1 LAB CHEMISTRY METHOD 07/29/2024 7:22 AM [facility] Calcium 7.8(L) 8.5 - 10.5 mg/dL LAB CHEMISTRY METHOD 07/29/2024 7:22 AM [facility] Blood Venous blood specimen / Unknown Venipuncture / Unknown 07/29/2024 5:54 AM EST 07/29/2024 6:34 AM EST us Jonny Mathur MD LAB BLOOD ORDERABLES Final Re sult [facility] [address] [place] [address], [place] [phone] * Heparin and low molecular weight anti [...] ORDERABLES Final Re sult Performing Organization Address [facility]/ZIP Co de Phone Number [facility] [address] [place] [address], [place] [phone] * (ABNORMAL) Heparin and low molecular weight [...] ORDERABLES Final Re sult Performing Organization Address City/[facility]/ZIP Co de Phone Number [facility] [address] [place] [address], [place] [phone] * (ABNORMAL) POCT Glucose, blood (07/28/2024 7:41 PM EST) Glucose POCT 269(H) 70 - 100 mg/dL 07/28/2024 7:41 PM EST [facility] Blood Capillary blood specimen / Unknown 07/28/2024 7:41 PM EST 07/28/2024 7:43 PM EST us Jonny Mathur MD LAB POINT OF CARE TE ST DOCKED DEVICE UNSOLICITED RESULTS Final Result [facility] [address] [place] [address], [place] [phone] * (ABNORMAL) POCT Glucose, blood (07/28/2024 4:54 PM EST) [facility] Glucose POCT 258(H) 70 - 100 mg/dL 07/28/2024 4:56 PM EST [facility] Blood Capillary blood specimen / Unknown 07/28/2024 4:54 PM EST 07/28/2024 4:57 PM EST us Jonny Mathur MD LAB POINT OF CARE TE ST DOCKED DEVICE UNSOLICITED RESULTS Final Result Performing Organization Address City/[facility]/ZIP Co de Phone Number [facility] [address] [place] [address], [place] [phone] * Hepatitis B core antibody IgM (07/28/2024 12:19 PM EST) [facility] Hep B Core IgM Negative Negative LAB [...] ORDERABLES Final Res ult Performing Organization Address [facility] Co de Phone Number [facility] [address] [place] [address], [place] [phone] * Hepatitis B surface antibody (07/28/2024 12:19 PM EST) [facility] Hepatitis B Surface Ab Negative Negative LAB [...] ORDERABLES Final Res ult Performing Organization Address [facility] de Phone Number [facility] [address] [place] [address], [place] [phone] * (ABNORMAL) POCT Glucose, blood (07/28/2024 11:02 AM EST) [facility] Glucose POCT 220(H) 70 - 100 mg/dL 07/28/2024 11:04 AM EST [facility] Blood Capillary blood specimen / Unknown 07/28/2024 11:02 AM EST 07/28/2024 11:05 AM EST us Jonny Mathur MD LAB POINT OF CARE TE ST DOCKED DEVICE UNSOLICITED RESULTS Final Result Performing Organization Address [facility] Co de Phone Number [facility] [address] [place] [address], * (ABNORMAL) CBC auto differential (07/28/2024 9:51 AM EST) [facility] WBC 13.0(H) 4.8 - 10.8 K/mcL LAB HEMETOLOGY METHOD 07/28/2024 12:32 PM [facility] RBC 3.10(L) 3.80 - 4.80 M/mcL LAB HEMETOLOGY METHOD 07/28/2024 12:32 PM [facility] Hemoglobin 8.0(L) 11.5 - 16.0 g/dL LAB HEMETOLOGY METHOD 07/28/2024 12:32 PM [facility] Hematocrit 26.5(L) 35.0 - 47.0 % LAB HEMETOLOGY METHOD 07/28/2024 12:32 PM [facility] MCV 84.9 79.0 - 98.0 FL LAB HEMETOLOGY METHOD 07/28/2024 12:32 PM [facility] MCH 25.6(L) 27.0 - 32.0 pcg LAB HEMETOLOGY METHOD 07/28/2024 12:32 PM [facility] MCHC 30.2(L) 32.0 - 37.0 g/dL LAB HEMETOLOGY METHOD 07/28/2024 12:32 PM [facility] RDW 22.8(H) 11.0 - 15.0 % LAB HEMETOLOGY METHOD 07/28/2024 12:32 PM [facility] Platelets 158 130 - 400 K/mcL LAB HEMETOLOGY METHOD 07/28/2024 12:32 PM [facility] MPV 11.5(H) 7.0 - 11.0 FL LAB HEMETOLOGY METHOD 07/28/2024 12:32 PM [facility] NRBC 0.0 <1.0 % LAB HEMETOLOGY METHOD 07/28/2024 12:32 PM [facility] NRBC Absolute 0.00 <0.10 K/mcL LAB HEMETOLOGY METHOD 07/28/2024 12:32 PM [facility] Neutrophils Relative 86.3 % LAB HEMETOLOGY METHOD 07/28/2024 12:32 PM [facility] Lymphocytes Relative 5.8 % LAB HEMETOLOGY METHOD 07/28/2024 12:32 PM [facility] Monocytes Relative 4.8 % LAB HEMETOLOGY METHOD 07/28/2024 12:32 PM [facility] Eosinophils Relative 1.7 % LAB HEMETOLOGY METHOD 07/28/2024 12:32 PM [facility] Basophils Relative 0.1 % LAB HEMETOLOGY METHOD 07/28/2024 12:32 PM [facility] Immature Granulocytes Relative 1.3 % LAB HEMETOLOGY METHOD 07/28/2024 12:32 PM [facility] Neutrophils Absolute 11.22(H) 1.50 - 7.00 K/mcL LAB HEMETOLOGY METHOD 07/28/2024 12:32 PM [facility] Lymphocytes Absolute 0.76(L) 1.00 - 5.00 K/mcL LAB HEMETOLOGY METHOD 07/28/2024 12:32 PM [facility] Monocytes Absolute 0.63 0.20 - 1.00 K/mcL LAB HEMETOLOGY METHOD 07/28/2024 12:32 PM [facility] Eosinophils Absolute 0.22 0.00 - 0.50 K/mcL LAB HEMETOLOGY METHOD 07/28/2024 12:32 PM [facility] Basophils Absolute 0.01 0.00 - 0.20 K/mcL LAB HEMETOLOGY METHOD 07/28/2024 12:32 PM [facility] Immature Granulocytes Absolute 0.17(H) 0.00 - 0.03 K/mcL LAB HEMETOLOGY METHOD 07/28/2024 12:32 PM [facility] Blood Venous blood specimen / Unknown Venipuncture / Unknown 07/28/2024 9:51 AM EST 07/28/2024 12:19 PM EST us Jonny Mathur MD LAB BLOOD ORDERABLES Final Re sult [facility] [address] [place] [address], [place] [phone] * (ABNORMAL) Basic metabolic panel (07/28/2024 9:51 AM EST) Sodium 134 133 - 145 mmol/L LAB CHEMISTRY METHOD 07/28/2024 1:16 PM [facility] Potassium 4.0 3.5 - 5.5 mmol/L LAB CHEMISTRY METHOD 07/28/2024 1:16 PM [facility] Chloride 95(L) 96 - 110 mmol/L LAB CHEMISTRY METHOD 07/28/2024 1:16 PM [facility] CO2 29 21 - 32 mmol/L LAB CHEMISTRY METHOD 07/28/2024 1:16 PM [facility] Anion Gap 10 3 - 11 LAB CHEMISTRY METHOD 07/28/2024 1:16 PM [facility] Glucose 230(H) 70 - 100 mg/dL LAB CHEMISTRY METHOD 07/28/2024 1:16 PM [facility] BUN 32(H) 5 - 25 mg/dL LAB CHEMISTRY METHOD 07/28/2024 1:16 PM [facility] Creatinine 2.82(H) 0.50 - 1.10 mg/dL LAB CHEMISTRY METHOD 07/28/2024 1:16 PM [facility] [...] ORDERABLES Final Re sult Performing Organization Address [facility]/ZIP Co de Phone Number [facility] [address] [place] [address], [place] [phone] * (ABNORMAL) Heparin and low molecular weight [...] ORDERABLES Final Re sult Performing Organization Address [facility]/ZIP Co de Phone Number [facility] [address] [place] [address], [place] [phone] * (ABNORMAL) POCT Glucose, blood (07/28/2024 9:29 AM EST) Glucose POCT 214(H) 70 - 100 mg/dL 07/28/2024 10:23 AM EST [facility] Blood Capillary blood specimen / Unknown 07/28/2024 9:29 AM EST 07/28/2024 10:24 AM EST us Jonny Mathur MD LAB POINT OF CARE TE ST DOCKED DEVICE UNSOLICITED RESULTS Final Result Performing Organization Address City/[facility]/ZIP Co de Phone Number [facility] [address] [place] [address], [place] [phone] * Heparin and low molecular weight anti [...] Re sult [facility] [address] [place] [address], [place] [phone] * (ABNORMAL) Heparin and low molecular weight [...] ORDERABLES Final Re sult Performing Organization Address City/[facility]/ZIP Co de Phone Number [facility] [address] [place] [address], [place] [phone] * (ABNORMAL) Heparin and low molecular weight [...] ORDERABLES Final Re sult Performing Organization Address City/[facility]/ZIP Co de Phone Number [facility] [address] [place], [place] [address], [place] [phone] * (ABNORMAL) POCT Glucose, blood (07/27/2024 8:12 PM EST) Glucose POCT 249(H) 70 - 100 mg/dL 07/27/2024 8:13 PM EST [facility] Blood Capillary blood specimen / Unknown 07/27/2024 8:12 PM EST 07/27/2024 8:14 PM EST us Jonny Mathur MD LAB POINT OF CARE TE ST DOCKED DEVICE UNSOLICITED RESULTS Final Result Performing Organization Address City/[facility]/ZIP Co de Phone Number [facility] [address] [place] [address], [place] [phone] * (ABNORMAL) POCT Glucose, blood (07/27/2024 4:34 PM EST) [facility] Glucose POCT 213(H) 70 - 100 mg/dL 07/27/2024 4:40 PM EST [facility] Blood Capillary blood specimen / Unknown 07/27/2024 4:34 PM EST 07/27/2024 4:41 PM EST us Jonny Mathur MD LAB POINT OF CARE TE ST DOCKED DEVICE UNSOLICITED RESULTS Final Result Performing Organization Address [facility]/ZIP Co de Phone Number [facility] [address] [place] [address], [place] [phone] * (ABNORMAL) Complete blood count (07/27/2024 3:25 PM EST) [facility] WBC 17.5(H) 4.8 - 10.8 K/mcL LAB [...] K/mcL LAB HEMETOLOGY METHOD 07/27/2024 3:46 PM [facility] MPV 10.8 7.0 - 11.0 FL LAB HEMETOLOGY METHOD 07/27/2024 3:46 PM EST [facility] NRBC 0.0 <1.0 % LAB HEMETOLOGY METHOD 07/27/2024 3:46 PM EST [facility] NRBC Absolute 0.00 <0.10 K/mcL LAB HEMETOLOGY METHOD 07/27/2024 3:46 PM [facility] Blood Venous blood specimen / Unknown Venipuncture / Unknown 07/27/2024 3:25 PM EST 07/27/2024 3:29 PM EST us Jonny Mathur MD LAB BLOOD ORDERABLES Final Re sult [facility] [address] [place] [address], * (ABNORMAL) Heparin and low molecular weight [...] Re sult [facility] [address] [place] [address], [place] [phone] * (ABNORMAL) Basic metabolic panel (07/27/2024 1:42 PM EST) Sodium 131(L) 133 - 145 mmol/L LAB CHEMISTRY METHOD 07/27/2024 2:30 PM [facility] Potassium 3.8 3.5 - 5.5 mmol/L LAB CHEMISTRY METHOD 07/27/2024 2:30 PM [facility] Chloride 97 96 - 110 mmol/L LAB CHEMISTRY METHOD 07/27/2024 2:30 PM [facility] CO2 28 21 - 32 mmol/L LAB CHEMISTRY METHOD 07/27/2024 2:30 PM [facility] Anion Gap 6 3 - 11 LAB CHEMISTRY METHOD 07/27/2024 2:30 PM [facility] Glucose 150(H) 70 - 100 mg/dL LAB CHEMISTRY METHOD 07/27/2024 2:30 PM [facility] BUN 17 5 - 25 mg/dL LAB CHEMISTRY METHOD 07/27/2024 2:30 PM [facility] Creatinine 1.53(H) 0.50 - 1.10 mg/dL LAB CHEMISTRY METHOD 07/27/2024 2:30 PM [facility] [...] ORDERABLES Final Re sult Performing Organization Address [facility]/ZIP Co de Phone Number [facility] [address] [place] [address], [place] [phone] * (ABNORMAL) POCT Glucose, blood (07/27/2024 11:54 AM EST) Glucose POCT 126(H) 70 - 100 mg/dL 07/27/2024 11:57 AM EST [facility] Blood Capillary blood specimen / Unknown 07/27/2024 11:54 AM EST 07/27/2024 11:58 AM EST us Jonny Mathur MD LAB POINT OF CARE TE ST DOCKED DEVICE UNSOLICITED RESULTS Final Result Performing Organization Address City/[facility]/ZIP Co de Phone Number [facility] [address] [place] [address], [place] [phone] * (ABNORMAL) CBC auto differential (07/27/2024 6:27 AM EST) WBC 12.4(H) 4.8 - 10.8 K/mcL LAB HEMETOLOGY METHOD 07/27/2024 7:55 AM EST [facility] RBC 3.10(L) 3.80 - 4.80 M/mcL LAB HEMETOLOGY METHOD 07/27/2024 7:55 AM [facility] Hemoglobin 7.7(L) 11.5 - 16.0 g/dL LAB HEMETOLOGY METHOD 07/27/2024 7:55 AM [facility] Hematocrit 25.5(L) 35.0 - 47.0 % LAB HEMETOLOGY METHOD 07/27/2024 7:55 AM [facility] MCV 83.3 79.0 - 98.0 FL LAB HEMETOLOGY METHOD 07/27/2024 7:55 AM [facility] MCH 25.2(L) 27.0 - 32.0 pcg LAB HEMETOLOGY METHOD 07/27/2024 7:55 AM [facility] MCHC 30.2(L) 32.0 - 37.0 g/dL LAB HEMETOLOGY METHOD 07/27/2024 7:55 AM [facility] RDW 22.4(H) 11.0 - 15.0 % LAB HEMETOLOGY METHOD 07/27/2024 7:55 AM [facility] Platelets 143 130 - 400 K/mcL LAB HEMETOLOGY METHOD 07/27/2024 7:55 AM [facility] MPV 11.2(H) 7.0 - 11.0 FL LAB HEMETOLOGY METHOD 07/27/2024 7:55 AM [facility] NRBC 0.0 <1.0 % LAB HEMETOLOGY METHOD 07/27/2024 7:55 AM [facility] NRBC Absolute 0.00 <0.10 K/mcL LAB HEMETOLOGY METHOD 07/27/2024 7:55 AM [facility] Neutrophils Relative 82.8 % LAB HEMETOLOGY METHOD 07/27/2024 7:55 AM [facility] Lymphocytes Relative 10.0 % LAB HEMETOLOGY METHOD 07/27/2024 7:55 AM [facility] Monocytes Relative 4.8 % LAB HEMETOLOGY METHOD 07/27/2024 7:55 AM [facility] Eosinophils Relative 0.8 % LAB HEMETOLOGY METHOD 07/27/2024 7:55 AM [facility] Basophils Relative 0.1 % LAB HEMETOLOGY METHOD 07/27/2024 7:55 AM [facility] Immature Granulocytes Relative 1.5 % LAB HEMETOLOGY METHOD 07/27/2024 7:55 AM [facility] Neutrophils Absolute 10.27(H) 1.50 - 7.00 K/mcL LAB HEMETOLOGY METHOD 07/27/2024 7:55 AM [facility] Lymphocytes Absolute 1.24 1.00 - 5.00 K/mcL LAB HEMETOLOGY METHOD 07/27/2024 7:55 AM [facility] Monocytes Absolute 0.59 0.20 - 1.00 K/mcL LAB HEMETOLOGY METHOD 07/27/2024 7:55 AM [facility] Eosinophils Absolute 0.10 0.00 - 0.50 K/mcL LAB HEMETOLOGY METHOD 07/27/2024 7:55 AM [facility] Basophils Absolute 0.01 0.00 - 0.20 K/mcL LAB HEMETOLOGY METHOD 07/27/2024 7:55 AM [facility] Immature Granulocytes Absolute 0.19(H) 0.00 - 0.03 K/mcL LAB HEMETOLOGY METHOD 07/27/2024 7:55 AM [facility] Blood Venous blood specimen / Unknown Venipuncture / Unknown 07/27/2024 6:27 AM EST 07/27/2024 7:41 AM EST Jonny Mathur MD LAB BLOOD ORDERABLES Final Re sult Performing Organization Address [facility]/ZIP Co de Phone Number [facility] [address] [place] [address], [place] [phone] * (ABNORMAL) Heparin and low molecular weight anti Xa level (07/27/2024 6:27 AM EST) Heparin Anti-Xa 0.74(H) 0.30 - 0.70 I Unit/mL LAB COAGULATION METHOD 07/27/2024 8:11 AM EST [facility] Blood Venous blood specimen / Unknown Venipuncture / Unknown 07/27/2024 6:27 AM EST 07/27/2024 7:41 AM EST [facility] - 07/27/2024 8:11 AM EST Therapeutic range listed is for Unfractionated Heparin. LMW Heparin therapeutic range: 0.50-1.20 IU/mL Jonny Mathur MD LAB BLOOD ORDERABLES Final Re sult Performing Organization Address [facility]/ZIP Co de Phone Number [facility] [address] [place] [address], [place] [phone] * (ABNORMAL) CBC - Every 3 Days (07/27/2024 6:27 AM EST) WBC 12.4(H) 4.8 - 10.8 K/[facility] HEMETOLOGY METHOD 07/27/2024 7:55 AM EST [facility] RBC 3.10(L) 3.80 - 4.80 M/[facility] LAB HEMETOLOGY METHOD 07/27/2024 7:55 AM [facility] Hemoglobin 7.7(L) 11.5 - 16.0 g/dL LAB HEMETOLOGY METHOD 07/27/2024 7:55 AM [facility] Hematocrit 25.5(L) 35.0 - [...] R esult [facility] [address] [place] [address], * (ABNORMAL) Basic metabolic panel (07/27/2024 6:27 AM EST) Sodium 130(L) 133 - 145 mmol/L LAB CHEMISTRY METHOD 07/27/2024 8:43 AM [facility] Potassium 4.2 3.5 - 5.5 mmol/L LAB CHEMISTRY METHOD 07/27/2024 8:43 AM [facility] Chloride 93(L) 96 - 110 mmol/L LAB CHEMISTRY METHOD 07/27/2024 8:43 AM [facility] CO2 30 21 - 32 mmol/L LAB CHEMISTRY METHOD 07/27/2024 8:43 AM [facility] Anion Gap 7 3 - 11 LAB CHEMISTRY METHOD 07/27/2024 8:43 AM [facility] Glucose 182(H) 70 - 100 mg/dL LAB CHEMISTRY METHOD 07/27/2024 8:43 AM [facility] BUN 62(H) 5 - 25 mg/dL LAB CHEMISTRY METHOD 07/27/2024 8:43 AM [facility] Creatinine 3.88(H) 0.50 - 1.10 mg/dL LAB CHEMISTRY METHOD 07/27/2024 8:43 AM [facility] eGFR 11(L) >=60 mL/min/1. 73m2 LAB CHEMISTRY METHOD 07/27/2024 8:43 AM [facility] Comment:Calculation based on the??Chronic Kidney Disease Epidemiology Collaboration (CKD-EPI) equation refit??without adjustment for race. BUN/Creatinine Ratio 16.0 LAB CHEMISTRY METHOD 07/27/2024 8:43 AM [facility] Calcium 8.2(L) 8.5 - 10.5 mg/dL LAB CHEMISTRY METHOD 07/27/2024 8:43 AM [facility] Blood Venous blood specimen / Unknown Venipuncture / Unknown 07/27/2024 6:27 AM EST 07/27/2024 7:41 AM EST us Jonny Mathur MD LAB BLOOD ORDERABLES Final Re sult [facility] [address] [place] [address], [place] [phone] * (ABNORMAL) POCT Glucose, blood (07/26/2024 8:23 PM EST) Glucose POCT 189(H) 70 - 100 mg/dL 07/26/2024 8:24 PM EST [facility] Blood Capillary blood specimen / Unknown 07/26/2024 8:23 PM EST 07/26/2024 8:25 PM EST us Jonny Mathur MD LAB POINT OF CARE TE ST DOCKED DEVICE UNSOLICITED RESULTS Final Result Performing Organization Address [facility]/ZIP Co de Phone Number [facility] [address] [place] [address], [place] [phone] * (ABNORMAL) POCT Glucose, blood (07/26/2024 4:28 PM EST) Glucose POCT 192(H) 70 - 100 mg/dL 07/26/2024 4:29 PM EST [facility] Blood Capillary blood specimen / Unknown 07/26/2024 4:28 PM EST 07/26/2024 4:30 PM EST us Jonny Mathur MD LAB POINT OF CARE TE ST DOCKED DEVICE UNSOLICITED RESULTS Final Result Performing Organization Address City/[facility]/ZIP Co de Phone Number [facility] [address] [place] [address], [place] [phone] * (ABNORMAL) POCT Glucose, blood (07/26/2024 11:15 AM EST) Glucose POCT 180(H) 70 - 100 mg/dL 07/26/2024 11:17 AM EST [facility] Blood Capillary blood specimen / Unknown 07/26/2024 11:15 AM EST 07/26/2024 11:18 AM EST us Jonny Mathur MD LAB POINT OF CARE TE ST DOCKED DEVICE UNSOLICITED RESULTS Final Result Performing Organization Address [facility]/ZIP Co de Phone Number [facility] [address] [place] [address], [place] [phone] * (ABNORMAL) POCT Glucose, blood (07/26/2024 8:08 AM EST) [facility] Glucose POCT 128(H) 70 - 100 mg/dL 07/26/2024 8:09 AM EST [facility] Blood Capillary blood specimen / Unknown 07/26/2024 8:08 AM EST 07/26/2024 8:10 AM EST us Jonny Mathur MD LAB POINT OF CARE TE ST DOCKED DEVICE UNSOLICITED RESULTS Final Result Performing Organization Address [facility] de Phone Number [facility] [address] [place] [address], [place] [phone] * Heparin and low molecular weight anti Xa level (07/26/2024 6:06 AM EST) [facility] Heparin Anti-Xa 0.65 0.30 - 0.70 I [...] ORDERABLES Final Re sult Performing Organization Address City/[facility]/ZIP Co de Phone Number [facility] [address] [place] [address], [place] [phone] * (ABNORMAL) POCT Glucose, blood (07/25/2024 9:22 PM EST) Glucose POCT 183(H) 70 - 100 mg/dL 07/25/2024 9:22 PM EST [facility] Blood Capillary blood specimen / Unknown 07/25/2024 9:22 PM EST 07/25/2024 9:23 PM EST us Jonny Mathur MD LAB POINT OF CARE TE ST DOCKED DEVICE UNSOLICITED RESULTS Final Result [facility] [address] [place] [address], [place] [phone] * (ABNORMAL) POCT Glucose, blood (07/25/2024 4:02 PM EST) Glucose POCT 194(H) 70 - 100 mg/dL 07/25/2024 4:02 PM EST [facility] Blood Capillary blood specimen / Unknown 07/25/2024 4:02 PM EST 07/25/2024 4:03 PM EST us Jonny Mathur MD LAB POINT OF CARE TE ST DOCKED DEVICE UNSOLICITED RESULTS Final Result [facility] [address] [place] [address], [place] [phone] * (ABNORMAL) POCT Glucose, blood (07/25/2024 2:56 PM EST) Glucose POCT 143(H) 70 - 100 mg/dL 07/25/2024 2:56 PM EST [facility] Blood Capillary blood specimen / Unknown 07/25/2024 2:56 PM EST 07/25/2024 2:58 PM EST Jonny Mathur MD LAB POINT OF CARE TE ST DOCKED DEVICE UNSOLICITED RESULTS Final Result Performing Organization Address City/[facility]/ZIP Co de Phone Number [facility] [address] [place] [address], [place] [phone] * (ABNORMAL) POCT Glucose, blood (07/25/2024 8:18 AM EST) Pathologist [facility] Glucose POCT 212(H) 70 - 100 mg/dL 07/25/2024 8:19 AM EST [facility] Blood Capillary blood specimen / Unknown 07/25/2024 8:18 AM EST 07/25/2024 8:20 AM EST Jonny Mathur MD LAB POINT OF CARE TE ST DOCKED DEVICE UNSOLICITED RESULTS Final Result Performing Organization Address [facility]/ZIP Co de Phone Number [facility] [address] [place] [address], [place] [phone] * (ABNORMAL) CBC auto differential (07/25/2024 5:35 AM EST) [facility] WBC 14.2(H) 4.8 - 10.8 K/[facility] LAB HEMETOLOGY METHOD 07/25/2024 7:21 AM [facility] RBC 3.10(L) 3.80 - 4.80 M/[facility] LAB HEMETOLOGY METHOD 07/25/2024 7:21 AM [facility] Hemoglobin 8.0(L) 11.5 - 16.0 g/dL LAB HEMETOLOGY METHOD 07/25/2024 7:21 AM [facility] Hematocrit 25.7(L) 35.0 - 47.0 % LAB HEMETOLOGY METHOD 07/25/2024 7:21 AM [facility] MCV 82.1 79.0 - 98.0 FL LAB HEMETOLOGY METHOD 07/25/2024 7:21 AM [facility] MCH 25.6(L) 27.0 - 32.0 pcg LAB HEMETOLOGY METHOD 07/25/2024 7:21 AM [facility] MCHC 31.1(L) 32.0 - 37.0 g/dL LAB HEMETOLOGY METHOD 07/25/2024 7:21 AM [facility] RDW 21.7(H) 11.0 - 15.0 % LAB HEMETOLOGY METHOD 07/25/2024 7:21 AM [facility] Platelets 158 130 - 400 K/mcL LAB HEMETOLOGY METHOD 07/25/2024 7:21 AM [facility] MPV 10.6 7.0 - 11.0 FL LAB HEMETOLOGY METHOD 07/25/2024 7:21 AM [facility] NRBC 0.0 <1.0 % LAB HEMETOLOGY METHOD 07/25/2024 7:21 AM [facility] NRBC Absolute 0.00 <0.10 K/mcL LAB HEMETOLOGY METHOD 07/25/2024 7:21 AM [facility] Neutrophils Relative 83.3 % LAB HEMETOLOGY METHOD 07/25/2024 7:21 AM [facility] Lymphocytes Relative 8.9 % LAB HEMETOLOGY METHOD 07/25/2024 7:21 AM [facility] Monocytes Relative 6.3 % LAB HEMETOLOGY METHOD 07/25/2024 7:21 AM [facility] Eosinophils Relative 0.6 % LAB HEMETOLOGY METHOD 07/25/2024 7:21 AM [facility] Basophils Relative 0.1 % LAB HEMETOLOGY METHOD 07/25/2024 7:21 AM [facility] Immature Granulocytes Relative 0.8 % LAB HEMETOLOGY METHOD 07/25/2024 7:21 AM [facility] Neutrophils Absolute 11.87(H) 1.50 - 7.00 K/mcL LAB HEMETOLOGY METHOD 07/25/2024 7:21 AM EST [facility] Lymphocytes Absolute 1.26 1.00 - 5.00 K/mcL LAB HEMETOLOGY METHOD 07/25/2024 7:21 AM EST [facility] Monocytes Absolute 0.89 0.20 - 1.00 K/mcL LAB HEMETOLOGY METHOD 07/25/2024 7:21 AM EST [facility] Eosinophils Absolute 0.08 0.00 - 0.50 K/[facility] HEMETOLOGY METHOD 07/25/2024 7:21 AM EST [facility] Basophils Absolute 0.01 0.00 - 0.20 K/mcL LAB HEMETOLOGY METHOD 07/25/2024 7:21 AM [facility] Immature Granulocytes Absolute 0.11(H) 0.00 - 0.03 K/mcL LAB HEMETOLOGY METHOD 07/25/2024 7:21 AM [facility] Blood Venous blood specimen / Unknown Venipuncture / Unknown 07/25/2024 5:35 AM EST 07/25/2024 6:48 AM EST [facility] BLOOD ORDERABLES Final R esult [facility] [address] [place] [address], * Heparin and low molecular weight anti Xa level (07/25/2024 5:35 AM EST) Heparin Anti-Xa 0.61 0.30 - 0.70 I Unit/mL LAB COAGULATION METHOD 07/25/2024 7:17 AM EST [facility] Blood Venous blood specimen / Unknown Venipuncture / Unknown 07/25/2024 5:35 AM EST 07/25/2024 6:48 AM EST [facility] - 07/25/2024 7:17 AM EST Therapeutic range listed is for Unfractionated Heparin. LMW Heparin therapeutic range: 0.50-1.20 IU/mL us Lencho Stuart MD LAB BLOOD ORDERABLES Final R esult [facility] [address] [place] [address], * (ABNORMAL) Basic metabolic panel (07/25/2024 5:35 AM EST) Sodium 132(L) 133 - 145 mmol/L LAB CHEMISTRY METHOD 07/25/2024 7:57 AM [facility] Potassium 4.2 3.5 - 5.5 mmol/L LAB CHEMISTRY METHOD 07/25/2024 7:57 AM [facility] Chloride 94(L) 96 - 110 mmol/L LAB CHEMISTRY METHOD 07/25/2024 7:57 AM [facility] CO2 30 21 - 32 mmol/L LAB CHEMISTRY METHOD 07/25/2024 7:57 AM [facility] Anion Gap 8 3 - 11 LAB CHEMISTRY METHOD 07/25/2024 7:57 AM [facility] Glucose 194(H) 70 - 100 mg/dL LAB CHEMISTRY METHOD 07/25/2024 7:57 AM [facility] BUN 77(H) 5 - 25 mg/dL LAB CHEMISTRY METHOD 07/25/2024 7:57 AM [facility] Creatinine 3.91(H) 0.50 - 1.10 mg/dL LAB CHEMISTRY METHOD 07/25/2024 7:57 AM [facility] eGFR 11(L) >=60 mL/min/1. 73m2 LAB CHEMISTRY METHOD 07/25/2024 7:57 AM [facility] [...] R esult [facility] [address] [place] [address], [place] [phone] * (ABNORMAL) POCT Glucose, blood (07/24/2024 7:58 PM EST) Glucose POCT 228(H) 70 - 100 mg/dL 07/24/2024 7:58 PM EST [facility] Blood Capillary blood specimen / Unknown 07/24/2024 7:58 PM EST 07/24/2024 8:00 PM EST Lencho Stuart MD LAB POINT OF CARE TE ST DOCKED DEVICE UNSOLICITED RESULTS Final Result [facility] [address] [place] [address], [place] [phone] * (ABNORMAL) POCT Glucose, blood (07/24/2024 3:24 [...] Final Result [facility] [address] [place] [address], [place] [phone] * (ABNORMAL) POCT Glucose, blood (07/24/2024 11:39 [...] UNSOLICITED RESULTS Final Result Performing Organization Address City/[facility] Co de Phone Number [facility] [address] [place] [address], [place] [phone] * (ABNORMAL) POCT Glucose, blood (07/24/2024 7:32 [...] Final Result [facility] [address] [place] [address], * Heparin and low molecular weight anti Xa level (07/24/2024 6:48 AM EST) Pathologist [facility] Heparin Anti-Xa 0.60 0.30 - 0.70 I Unit/mL LAB COAGULATION METHOD 07/24/2024 7:29 AM EST [facility] Blood Venous blood specimen / Unknown Venipuncture / Unknown 07/24/2024 6:48 AM EST 07/24/2024 7:03 AM EST [facility] - 07/24/2024 7:29 AM EST Therapeutic range listed is for Unfractionated Heparin. LMW Heparin therapeutic range: 0.50-1.20 IU/mL [facility] BLOOD ORDERABLES Final R esult Performing Organization Address [facility]/ZIP Co de Phone Number [facility] [address] [place] [address], * (ABNORMAL) CBC auto differential (07/24/2024 6:48 AM EST) [facility] WBC 13.1(H) 4.8 - 10.8 K/mcL LAB HEMETOLOGY METHOD 07/24/2024 7:30 AM [facility] RBC 3.10(L) 3.80 - 4.80 M/[facility] LAB HEMETOLOGY METHOD 07/24/2024 7:30 AM [facility] Hemoglobin 7.7(L) 11.5 - 16.0 g/dL LAB HEMETOLOGY METHOD 07/24/2024 7:30 AM [facility] Hematocrit 25.3(L) 35.0 - 47.0 % LAB HEMETOLOGY METHOD 07/24/2024 7:30 AM [facility] MCV 81.4 79.0 - 98.0 FL LAB HEMETOLOGY METHOD 07/24/2024 7:30 AM [facility] MCH 24.8(L) 27.0 - 32.0 pcg LAB HEMETOLOGY METHOD 07/24/2024 7:30 AM [facility] MCHC 30.4(L) 32.0 - 37.0 g/dL LAB HEMETOLOGY METHOD 07/24/2024 7:30 AM [facility] RDW 21.7(H) 11.0 - 15.0 % LAB HEMETOLOGY METHOD 07/24/2024 7:30 AM [facility] Platelets 174 130 - 400 K/mcL LAB HEMETOLOGY METHOD 07/24/2024 7:30 AM [facility] MPV 10.6 7.0 - 11.0 FL LAB HEMETOLOGY METHOD 07/24/2024 7:30 AM [facility] NRBC 0.0 <1.0 % LAB HEMETOLOGY METHOD 07/24/2024 7:30 AM [facility] NRBC Absolute 0.00 <0.10 K/mcL LAB HEMETOLOGY METHOD 07/24/2024 7:30 AM [facility] Neutrophils Relative 84.4 % LAB HEMETOLOGY METHOD 07/24/2024 7:30 AM [facility] Lymphocytes Relative 6.4 % LAB HEMETOLOGY METHOD 07/24/2024 7:30 AM [facility] Monocytes Relative 8.3 % LAB HEMETOLOGY METHOD 07/24/2024 7:30 AM [facility] Eosinophils Relative 0.0 % LAB HEMETOLOGY METHOD 07/24/2024 7:30 AM [facility] Basophils Relative 0.1 % LAB HEMETOLOGY METHOD 07/24/2024 7:30 AM [facility] Immature Granulocytes Relative 0.8 % LAB HEMETOLOGY METHOD 07/24/2024 7:30 AM EST [facility] Neutrophils Absolute 11.03(H) 1.50 - 7.00 K/[facility] LAB HEMETOLOGY METHOD 07/24/2024 7:30 AM EST [facility] Lymphocytes Absolute 0.83(L) 1.00 - 5.00 K/mcL LAB HEMETOLOGY METHOD 07/24/2024 7:30 AM EST [facility] Monocytes Absolute 1.08(H) 0.20 - 1.00 K/mcL LAB HEMETOLOGY METHOD 07/24/2024 7:30 AM [facility] Eosinophils Absolute 0.00 0.00 - 0.50 K/[facility] LAB HEMETOLOGY METHOD 07/24/2024 7:30 AM [facility] Basophils Absolute 0.01 0.00 - 0.20 K/mcL LAB HEMETOLOGY METHOD 07/24/2024 7:30 AM [facility] Immature Granulocytes Absolute 0.11(H) 0.00 - 0.03 K/[facility] LAB HEMETOLOGY METHOD 07/24/2024 7:30 AM [facility] Blood Venous blood specimen / Unknown Venipuncture / Unknown 07/24/2024 6:48 AM EST 07/24/2024 7:03 AM EST [facility] LAB BLOOD ORDERABLES Final R esult [facility] [address] [place] [address], * (ABNORMAL) CBC - Every 3 Days (07/24/2024 6:48 AM EST) WBC 13.1(H) 4.8 - 10.8 K/mcL LAB HEMETOLOGY METHOD 07/24/2024 7:30 AM EST [facility] RBC 3.10(L) 3.80 - 4.80 M/[facility]L LAB HEMETOLOGY METHOD 07/24/2024 7:30 AM [facility] Hemoglobin 7.7(L) 11.5 - 16.0 g/dL LAB HEMETOLOGY METHOD 07/24/2024 7:30 AM [facility] Hematocrit 25.3(L) 35.0 - 47.0 % LAB HEMETOLOGY METHOD 07/24/2024 7:30 AM [facility] [facility] MCV 81.4 79.0 - 98.0 FL LAB HEMETOLOGY METHOD 07/24/2024 7:30 AM [facility] MCH 24.8(L) 27.0 - 32.0 pcg LAB HEMETOLOGY METHOD 07/24/2024 7:30 AM [facility] MCHC 30.4(L) 32.0 - 37.0 g/dL LAB HEMETOLOGY METHOD 07/24/2024 7:30 AM [facility] RDW 21.7(H) 11.0 - 15.0 % LAB HEMETOLOGY METHOD 07/24/2024 7:30 AM [facility] Platelets 174 130 - 400 K/mcL LAB HEMETOLOGY METHOD 07/24/2024 7:30 AM [facility] MPV 10.6 7.0 - 11.0 FL LAB HEMETOLOGY METHOD 07/24/2024 7:30 AM [facility] NRBC 0.0 <1.0 % LAB HEMETOLOGY METHOD 07/24/2024 7:30 AM [facility] NRBC Absolute 0.00 <0.10 K/mcL LAB HEMETOLOGY METHOD 07/24/2024 7:30 AM [facility] Blood Venous blood specimen / Unknown Venipuncture / Unknown 07/24/2024 6:48 AM EST 07/24/2024 7:03 AM EST us Lencho Stuart MD LAB BLOOD ORDERABLES Final R esult [facility] [address] [place] [address], * (ABNORMAL) Basic metabolic panel (07/24/2024 6:48 AM EST) Sodium 132(L) 133 - 145 mmol/L LAB CHEMISTRY METHOD 07/24/2024 8:38 AM EST [facility] Potassium 4.1 3.5 - 5.5 mmol/L LAB CHEMISTRY METHOD 07/24/2024 8:38 AM [facility] Chloride 94(L) 96 - 110 mmol/L LAB CHEMISTRY METHOD 07/24/2024 8:38 AM [facility] CO2 29 21 - 32 mmol/L LAB CHEMISTRY METHOD 07/24/2024 8:38 AM [facility] Anion Gap 9 3 - 11 LAB CHEMISTRY METHOD 07/24/2024 8:38 AM [facility] Glucose 286(H) 70 - 100 mg/dL LAB CHEMISTRY METHOD 07/24/2024 8:38 AM [facility] BUN 54(H) 5 - 25 mg/dL LAB CHEMISTRY METHOD 07/24/2024 8:38 AM [facility] Creatinine 2.84(H) 0.50 - 1.10 mg/dL LAB CHEMISTRY METHOD 07/24/2024 8:38 AM [facility] eGFR 16(L) >=60 mL/min/1. 73m2 LAB CHEMISTRY METHOD 07/24/2024 8:38 AM [facility] Comment:Calculation based on the??Chronic Kidney Disease Epidemiology Collaboration (CKD-EPI) equation refit??without adjustment for race. BUN/Creatinine Ratio 19.0 LAB CHEMISTRY METHOD 07/24/2024 8:38 AM [facility] Calcium 8.0(L) 8.5 - 10.5 mg/dL LAB CHEMISTRY METHOD 07/24/2024 8:38 AM EST [facility] Blood Venous blood specimen / Unknown Venipuncture / Unknown 07/24/2024 6:48 AM EST 07/24/2024 7:03 AM EST Lencho Stuart MD LAB BLOOD ORDERABLES Final R esult [facility] [address] [place] [address], * Heparin and low molecular weight anti [...] R esult [facility] [address] [place] [address], * (ABNORMAL) POCT Glucose, blood (07/23/2024 7:35 PM EST) Glucose POCT 320(H) 70 - 100 mg/dL 07/23/2024 7:35 PM EST [facility] Blood Capillary blood specimen / Unknown 07/23/2024 7:35 PM EST 07/23/2024 7:37 PM EST Lencho Stuart MD LAB POINT OF CARE TE ST DOCKED DEVICE UNSOLICITED RESULTS Final Result [facility] [address] [place] [address], [place] [phone] * Transfuse RBC (07/23/2024 6:19 PM EST) [...] Insertion of 18g/10cm [employer] Powerglide midline Lot: [id number] Exp: 2025-05-28 Indications: ??Difficult draw with frequent [...] 100 mg/dL 07/23/2024 4:31 PM EST [facility] Blood Capillary blood specimen / Unknown 07/23/2024 4:30 PM EST 07/23/2024 4:32 PM EST us Lencho Stuart MD LAB POINT OF CARE TE ST DOCKED DEVICE UNSOLICITED RESULTS Final Result [facility] [address] [place] [address], [place] [phone] * (ABNORMAL) Heparin and low molecular weight [...] ORDERABLES Final R esult Performing Organization Address City/[facility]/ZIP Co de Phone Number [facility] [address] [place] [address], * Type and screen (07/23/2024 12:31 PM [...] ORDERABL ES Final Result Performing Organization Address [facility]/ZIP Co de Phone Number [facility] [address] [place] [address], [place] [phone] * (ABNORMAL) POCT Glucose, blood (07/23/2024 12:12 PM EST) [facility] Glucose POCT 204(H) 70 - 100 mg/dL 07/23/2024 12:13 PM EST [facility] Blood Capillary blood specimen / Unknown 07/23/2024 12:12 PM EST 07/23/2024 12:14 PM EST us Lencho Stuart MD LAB POINT OF CARE TE ST DOCKED DEVICE UNSOLICITED RESULTS Final Result Performing Organization Address City/[facility]/ZIP Co de Phone Number [facility] [address] [place] [address], [place] [phone] * Prepare RBC: 1 Units (07/23/2024 11:14 AM EST) [facility] Product Code [id number] 07/23/2024 3:38 PM [facility] Unit Number [id number] 07/23/19 3:38 PM [facility] Crossmatch Compatible 07/23/2024 2:36 PM [facility] Dispense Status Transfused 07/23/2024 3:38 PM [facility] Unit ABO Rh OPOS 07/23/2024 3:38 PM [facility] Unit Expiration Date Time [id number] 07/23/2024 3:38 PM [facility] Unit Blood Type 5100 07/23/2024 3:38 PM EST [facility] Blood Venous blood specimen / Unknown 07/23/2024 11:14 AM EST 07/23/2024 12:50 PM EST Lencho Stuart MD BLOOD BANK PRODUCT ORDERABLE S Final Result Performing Organization Address [facility]/ZIP Co de Phone Number [facility] [address] [place] [address], * (ABNORMAL) Heparin and low molecular weight [...] ORDERABLES Final R esult Performing Organization Address City/[facility]/ZIP Co de Phone Number [facility] [address] [place] [address], * (ABNORMAL) CBC auto differential (07/23/2024 5:44 AM EST) WBC 11.6(H) 4.8 - 10.8 K/mcL LAB HEMETOLOGY METHOD 07/23/2024 7:10 AM EST [facility] RBC 2.80(L) 3.80 - 4.80 M/mcL LAB HEMETOLOGY METHOD 07/23/2024 7:10 AM EST [facility] Hemoglobin 6.9(L) 11.5 - 16.0 g/dL LAB HEMETOLOGY METHOD 07/23/2024 7:10 AM [facility] Hematocrit 23.0(L) 35.0 - 47.0 % LAB HEMETOLOGY METHOD 07/23/2024 7:10 AM [facility] MCV 81.6 79.0 - 98.0 FL LAB HEMETOLOGY METHOD 07/23/2024 7:10 AM [facility] MCH 24.5(L) 27.0 - 32.0 pcg LAB HEMETOLOGY METHOD 07/23/2024 7:10 AM [facility] MCHC 30.0(L) 32.0 - 37.0 g/dL LAB HEMETOLOGY METHOD 07/23/2024 7:10 AM [facility] RDW 23.3(H) 11.0 - 15.0 % LAB HEMETOLOGY METHOD 07/23/2024 7:10 AM [facility] Platelets 206 130 - 400 K/mcL LAB HEMETOLOGY METHOD 07/23/2024 7:10 AM [facility] MPV 10.5 7.0 - 11.0 FL LAB HEMETOLOGY METHOD 07/23/2024 7:10 AM [facility] NRBC 0.0 <1.0 % LAB HEMETOLOGY METHOD 07/23/2024 7:10 AM [facility] NRBC Absolute 0.00 <0.10 K/mcL LAB HEMETOLOGY METHOD 07/23/2024 7:10 AM [facility] Neutrophils Relative 90.8 % LAB HEMETOLOGY METHOD 07/23/2024 7:10 AM [facility] Lymphocytes Relative 3.4 % LAB HEMETOLOGY METHOD 07/23/2024 7:10 AM [facility] Monocytes Relative 5.0 % LAB HEMETOLOGY METHOD 07/23/2024 7:10 AM EST [facility] Eosinophils Relative 0.0 % LAB HEMETOLOGY METHOD 07/23/2024 7:10 AM [facility] Basophils Relative 0.1 % LAB HEMETOLOGY METHOD 07/23/2024 7:10 AM [facility] Immature Granulocytes Relative 0.7 % LAB HEMETOLOGY METHOD 07/23/2024 7:10 AM [facility] Neutrophils Absolute 10.52(H) 1.50 - 7.00 K/mcL LAB HEMETOLOGY METHOD 07/23/2024 7:10 AM [facility] Lymphocytes Absolute 0.39(L) 1.00 - 5.00 K/mcL LAB HEMETOLOGY METHOD 07/23/2024 7:10 AM [facility] Monocytes Absolute 0.58 0.20 - 1.00 K/mcL LAB HEMETOLOGY METHOD 07/23/2024 7:10 AM [facility] Eosinophils Absolute 0.00 0.00 - 0.50 K/mcL LAB HEMETOLOGY METHOD 07/23/2024 7:10 AM [facility] Basophils Absolute 0.01 0.00 - 0.20 K/mcL LAB HEMETOLOGY METHOD 07/23/2024 7:10 AM [facility] Immature Granulocytes Absolute 0.08(H) 0.00 - 0.03 K/mcL LAB HEMETOLOGY METHOD 07/23/2024 7:10 AM [facility] Blood Venous blood specimen / Unknown Venipuncture / Unknown 07/23/2024 5:44 AM EST 07/23/2024 6:50 AM EST Lencho Stuart MD LAB BLOOD ORDERABLES Final R esult [facility] [address] [place] [address], * (ABNORMAL) Basic metabolic panel (07/23/2024 5:44 AM EST) Sodium 130(L) 133 - 145 mmol/L LAB CHEMISTRY METHOD 07/23/2024 8:36 AM [facility] Potassium 5.5 3.5 - 5.5 mmol/L LAB CHEMISTRY METHOD 07/23/2024 8:36 AM [facility] Chloride 92(L) 96 - 110 mmol/L LAB CHEMISTRY METHOD 07/23/2024 8:36 AM [facility] CO2 29 21 - 32 mmol/L LAB CHEMISTRY METHOD 07/23/2024 8:36 AM [facility] Anion Gap 9 3 - 11 LAB CHEMISTRY METHOD 07/23/2024 8:36 AM [facility] Glucose 378(H) 70 - 100 mg/dL LAB CHEMISTRY METHOD 07/23/2024 8:36 AM [facility] BUN 76(H) 5 - 25 mg/dL LAB CHEMISTRY METHOD 07/23/2024 8:36 AM [facility] Creatinine 4.16(H) 0.50 - 1.10 mg/dL LAB CHEMISTRY METHOD 07/23/2024 8:36 AM [facility] eGFR 10(L) >=60 mL/min/1. 73m2 LAB CHEMISTRY METHOD 07/23/2024 8:36 AM [facility] Comment:Calculation based on the??Chronic Kidney Disease Epidemiology Collaboration (CKD-EPI) equation refit??without adjustment for race. BUN/Creatinine Ratio 18.3 LAB CHEMISTRY METHOD 07/23/2024 8:36 AM [facility] Calcium 7.9(L) 8.5 - 10.5 mg/dL LAB CHEMISTRY METHOD 07/23/2024 8:36 AM [facility] Blood Venous blood specimen / Unknown Venipuncture / Unknown 07/23/2024 5:44 AM EST 07/23/2024 6:50 AM EST Lencho Stuart MD LAB BLOOD ORDERABLES Final R esult [facility] [address] [place] [address], [place] [phone] * (ABNORMAL) Heparin and low molecular weight [...] ORDERABLES Final R esult Performing Organization Address City/[facility]/ZIP Co de Phone Number [facility] [address] [place] [address], [place] [phone] * (ABNORMAL) POCT Glucose, blood (07/22/2024 8:10 PM EST) Glucose POCT 304(H) 70 - 100 mg/dL 07/22/2024 8:10 PM EST [facility] Blood Capillary blood specimen / Unknown 07/22/2024 8:10 PM EST 07/22/2024 8:11 PM EST Lencho Stuart MD LAB POINT OF CARE TE ST DOCKED DEVICE UNSOLICITED RESULTS Final Result [facility] [address] [place] [address], [place] [phone] * (ABNORMAL) Hemoglobin and hematocrit (07/22/2024 6:40 [...] Resu lt [facility] [address] [place] [address], [place] [phone] * (ABNORMAL) POCT Glucose, blood (07/22/2024 4:10 PM EST) Glucose POCT 267(H) 70 - 100 mg/dL 07/22/2024 4:11 PM EST [facility] Blood Capillary blood specimen / Unknown 07/22/2024 4:10 PM EST 07/22/2024 4:12 PM EST Lencho Stuart MD LAB POINT OF CARE TE ST DOCKED DEVICE UNSOLICITED RESULTS Final Result [facility] [address] [place] [address], [place] [phone] * IR Bx Ndl Renal Perc Left [...] Signed Date: 07/22/2024 17:00 ET Workstation ID: [id number] Transcribed By: Self Edit Transcribed Date: 07/22/2024 [...] of fentanyl administered during the procedure. Scanner: [employer] [address] Dose reduction technique: AEC [...] of fentanyl administered during the procedure. Scanner: [employer] [address] Dose reduction technique: AEC [...] Signed Date: 07/22/2024 17:00 ET Workstation ID: [id number] Transcribed By: Self Edit Transcribed Date: 07/22/2024 [...] Tissue exam (07/22/2024 3:13 PM EST) Addendum [facility] Kidney (addendum) This case was sent to [facility], Department of Pathology, [place], [place] (CLIA: [id number]). Their diagnosis is summarized as follows: Pathologic [...] report for full kidney biopsy diagnosis from [facility], [place], [place]) 08/12/2024 10:52 AM EST [facility] Addendum electronically signed by Mitchell Prince MD on 08/12/2024 at 10:52 AM Final Diagnosis Kidney, left-biopsies for routine, immunofluorescence and electron microscopy: -Submitted in toto to [facility] -See addendum report 08/12/2024 10:52 AM [facility] Gross Description A. Kidney, Left, : Labeled kidney L . Received fresh in saline are 3 perez-pink soft tissue cores, ranging from 0.7 x 0.1 cm to 1.7 x 0.1 cm, which are transfered to formalin for light microscopy, Mick fixative for Immunofluorescence, and Glutaraldehyde for electron microscopy. The specimen is entirely submitted to [facility] for analysis. ELOISE 08/12/2024 10:52 AM [facility] Disclaimer Unless otherwise specified, all tissue is 10% NB formalin fixed and paraffin embedded. 08/12/2024 10:52 AM [facility] Tissue Left kidney structure / Unknown 07/22/2024 3:13 PM EST 07/22/2024 3:39 PM EST Fela Palomo MD LAB PATHOLOGY ORDERABLES Edited Result - Final [facility] [address] [place] [address], * (ABNORMAL) Prothrombin time with INR (07/22/2024 11:00 AM EST) Protime 16.3(H) 10.6 - 13.9 sec LAB COAGULATION METHOD 07/22/2024 1:11 PM EST [facility] INR 1.3 LAB COAGULATION METHOD 07/22/2024 1:11 PM [facility] Blood Venous blood specimen / Unknown Venipuncture / Unknown 07/22/2024 11:00 AM EST 07/22/2024 11:22 AM EST Lencho Stuart MD LAB BLOOD ORDERABLES Final R esult [facility] [address] [place] [address], [place] [phone] * (ABNORMAL) Anti-Xa - Every 6 Hours [...] ORDERABLES Final R esult Performing Organization Address City/[facility]/ZIP Co de Phone Number [facility] [address] [place] [address], [place] [phone] * Lavender tube (07/22/2024 10:53 AM EST) Extra Tube Hold for add-ons. 07/22/2024 1:01 PM EST [facility] Comment:Auto resulted. Blood Venous blood specimen / Unknown 07/22/2024 10:53 AM EST 07/22/2024 11:25 AM EST us Lencho Stuart MD LAB BLOOD ORDERABLES Final R esult [facility] [address] [place] [address], [place] [phone] * SST tube (07/22/2024 10:53 AM EST) Extra Tube Hold for add-ons. 07/22/2024 1:01 PM EST [facility] Comment:Auto resulted. Blood Venous blood specimen / Unknown 07/22/2024 10:53 AM EST 07/22/2024 11:25 AM EST us Lencho Stuart MD LAB BLOOD ORDERABLES Final R esult Performing Organization Address [facility] Co de Phone Number [facility] [address] [place] [address], [place] [phone] * (ABNORMAL) POCT Glucose, blood (07/22/2024 10:48 AM EST) Glucose POCT 280(H) 70 - 100 mg/dL 07/22/2024 11:08 AM EST [facility] Blood Capillary blood specimen / Unknown 07/22/2024 10:48 AM EST 07/22/2024 11:09 AM EST us Lencho Stuart MD LAB POINT OF CARE TE ST DOCKED DEVICE UNSOLICITED RESULTS Final Result Performing Organization Address [facility] Co de Phone Number [facility] [address] [place] [address], [place] [phone] * (ABNORMAL) POCT Glucose, blood (07/22/2024 8:10 AM EST) Glucose POCT 300(H) 70 - 100 mg/dL 07/22/2024 8:11 AM EST [facility] Blood Capillary blood specimen / Unknown 07/22/2024 8:10 AM EST 07/22/2024 8:13 AM EST us Lencho Stuart MD LAB POINT OF CARE TE ST DOCKED DEVICE UNSOLICITED RESULTS Final Result Performing Organization Address City/[facility] Co de Phone Number [facility] [address] [place] [address], [place] [phone] * (ABNORMAL) POCT Glucose, blood (07/22/2024 3:43 AM EST) [facility] Glucose POCT 276(H) 70 - 100 mg/dL 07/22/2024 3:44 AM EST [facility] Blood Capillary blood specimen / Unknown 07/22/2024 3:43 AM EST 07/22/2024 3:45 AM EST [facility] LAB POINT OF CARE TE ST DOCKED DEVICE UNSOLICITED RESULTS Final Result [facility] [address] [place] [address], [place] [phone] * (ABNORMAL) CBC auto differential (07/22/2024 3:11 AM EST) [facility] WBC 9.6 4.8 - 10.8 K/mcL LAB HEMETOLOGY METHOD 07/22/2024 3:32 AM [facility] RBC 3.00(L) 3.80 - 4.80 M/mcL LAB HEMETOLOGY METHOD 07/22/2024 3:32 AM [facility] Hemoglobin 7.2(L) 11.5 - 16.0 g/dL LAB HEMETOLOGY METHOD 07/22/2024 3:32 AM [facility] Hematocrit 24.3(L) 35.0 - 47.0 % LAB HEMETOLOGY METHOD 07/22/2024 3:32 AM [facility] MCV 80.5 79.0 - 98.0 FL LAB HEMETOLOGY METHOD 07/22/2024 3:32 AM [facility] MCH 23.8(L) 27.0 - 32.0 pcg LAB HEMETOLOGY METHOD 07/22/2024 3:32 AM [facility] MCHC 29.6(L) 32.0 - 37.0 g/dL LAB HEMETOLOGY METHOD 07/22/2024 3:32 AM [facility] RDW 23.6(H) 11.0 - 15.0 % LAB HEMETOLOGY METHOD 07/22/2024 3:32 AM [facility] Platelets 169 130 - 400 K/mcL LAB HEMETOLOGY METHOD 07/22/2024 3:32 AM [facility] MPV 9.7 7.0 - 11.0 FL LAB HEMETOLOGY METHOD 07/22/2024 3:32 AM [facility] NRBC 0.0 <1.0 % LAB HEMETOLOGY METHOD 07/22/2024 3:32 AM [facility] NRBC Absolute 0.00 <0.10 K/mcL LAB HEMETOLOGY METHOD 07/22/2024 3:32 AM [facility] Neutrophils Relative 95.2 % LAB HEMETOLOGY METHOD 07/22/2024 3:32 AM [facility] Lymphocytes Relative 3.3 % LAB HEMETOLOGY METHOD 07/22/2024 3:32 AM [facility] Monocytes Relative 0.7 % LAB HEMETOLOGY METHOD 07/22/2024 3:32 AM [facility] Eosinophils Relative 0.0 % LAB HEMETOLOGY METHOD 07/22/2024 3:32 AM [facility] Basophils Relative 0.1 % LAB HEMETOLOGY METHOD 07/22/2024 3:32 AM [facility] Immature Granulocytes Relative 0.7 % LAB HEMETOLOGY METHOD 07/22/2024 3:32 AM [facility] Neutrophils Absolute 9.13(H) 1.50 - 7.00 K/mcL LAB HEMETOLOGY METHOD 07/22/2024 3:32 AM [facility] Lymphocytes Absolute 0.32(L) 1.00 - 5.00 K/mcL LAB HEMETOLOGY METHOD 07/22/2024 3:32 AM EST [facility] Monocytes Absolute 0.07(L) 0.20 - 1.00 K/[facility] LAB HEMETOLOGY METHOD 07/22/2024 3:32 AM EST [facility] Eosinophils Absolute 0.00 0.00 - 0.50 K/mcL LAB HEMETOLOGY METHOD 07/22/2024 3:32 AM EST [facility] Basophils Absolute 0.01 0.00 - 0.20 K/[facility] LAB HEMETOLOGY METHOD 07/22/2024 3:32 AM EST [facility] Immature Granulocytes Absolute 0.07(H) 0.00 - 0.03 K/mcL LAB HEMETOLOGY METHOD 07/22/2024 3:32 AM EST [facility] Blood Venous blood specimen / Unknown Venipuncture / Unknown 07/22/2024 3:11 AM EST 07/22/2024 3:23 AM EST Estdimas Stuart MD LAB BLOOD ORDERABLES Final R esult [facility] [address] [place] [address], * (ABNORMAL) Basic metabolic panel (07/22/2024 3:11 [...] mmol/L LAB CHEMISTRY METHOD 07/22/2024 4:20 AM [facility] Anion Gap 10 3 - 11 LAB CHEMISTRY METHOD 07/22/2024 4:20 AM [facility] Glucose 264(H) 70 - 100 mg/dL LAB CHEMISTRY METHOD 07/22/2024 4:20 AM [facility] BUN 40(H) 5 - 25 mg/dL LAB CHEMISTRY METHOD 07/22/2024 4:20 AM [facility] Creatinine 2.87(H) 0.50 - 1.10 mg/dL LAB CHEMISTRY METHOD 07/22/2024 4:20 AM [facility] eGFR 16(L) >=60 mL/min/1. 73m2 LAB CHEMISTRY METHOD 07/22/2024 4:20 AM [facility] Comment:Calculation based on the??Chronic Kidney Disease Epidemiology Collaboration (CKD-EPI) equation refit??without adjustment for race. BUN/Creatinine Ratio 13.9 LAB CHEMISTRY METHOD 07/22/2024 4:20 AM [facility] Calcium 7.4(L) 8.5 - 10.5 mg/dL LAB CHEMISTRY METHOD 07/22/2024 4:20 AM [facility] Blood Venous blood specimen / Unknown Venipuncture / Unknown 07/22/2024 3:11 AM EST 07/22/2024 4:20 AM EST us Lencho Stuart MD LAB BLOOD ORDERABLES Final R esult [facility] [address] [place] [address], * (ABNORMAL) Anti-Xa - Every 6 Hours (07/22/2024 3:09 AM EST) Heparin Anti-Xa 0.26(L) 0.30 - 0.70 I Unit/mL LAB COAGULATION METHOD 07/22/2024 3:33 AM [facility] Blood Venous blood specimen / Unknown Venipuncture / Unknown 07/22/2024 3:09 AM EST 07/22/2024 3:23 AM EST Narrative [facility] - 07/22/2024 3:33 AM EST Therapeutic range listed is for Unfractionated Heparin. LMW Heparin therapeutic range: 0.50-1.20 IU/mL us Lencho Stuart MD LAB BLOOD ORDERABLES Final R esult [facility] [address] [place] [address], [place] [phone] * (ABNORMAL) POCT Glucose, blood (07/21/2024 8:10 PM EST) Glucose POCT 172(H) 70 - 100 mg/dL 07/21/2024 8:11 PM EST [facility] Blood Capillary blood specimen / Unknown 07/21/2024 8:10 PM EST 07/21/2024 8:12 PM EST us Lencho Stuart MD LAB POINT OF CARE TE ST DOCKED DEVICE UNSOLICITED RESULTS Final Result Performing Organization Address [facility]/ZIP Co de Phone Number [facility] [address] [place] [address], [place] [phone] * (ABNORMAL) Heparin and low molecular weight [...] ORDERABLES Final R esult Performing Organization Address [facility]/ZIP Co de Phone Number [facility] [address] [place] [address], [place] [phone] * (ABNORMAL) POCT Glucose, blood (07/21/2024 5:04 PM EST) Glucose POCT 175(H) 70 - 100 mg/dL 07/21/2024 5:05 PM EST [facility] Blood Capillary blood specimen / Unknown 07/21/2024 5:04 PM EST 07/21/2024 5:06 PM EST us Lencho Stuart MD LAB POINT OF CARE TE ST DOCKED DEVICE UNSOLICITED RESULTS Final Result Performing Organization Address [facility]/ZIP Co de Phone Number [facility] [address] [place] [address], [place] [phone] * POCT Glucose, blood (07/21/2024 1:57 PM EST) Glucose POCT 96 70 - 100 mg/dL 07/21/2024 1:58 PM EST [facility] Blood Capillary blood specimen / Unknown 07/21/2024 1:57 PM EST 07/21/2024 1:59 PM EST us Lencho Stuart MD LAB POINT OF CARE TE ST DOCKED DEVICE UNSOLICITED RESULTS Final Result Performing Organization Address City/[facility]/ZIP Co de Phone Number [facility] [address] [place] [address], [place] [phone] * (ABNORMAL) Complete blood count (07/21/2024 8:55 AM EST) WBC 18.9(H) 4.8 - 10.8 K/mcL LAB HEMETOLOGY METHOD 07/21/2024 9:21 AM [facility] RBC 3.00(L) 3.80 - 4.80 M/mcL LAB HEMETOLOGY METHOD 07/21/2024 9:21 AM [facility] Hemoglobin 7.3(L) 11.5 - 16.0 g/dL LAB HEMETOLOGY METHOD 07/21/2024 9:21 AM [facility] Hematocrit 23.7(L) 35.0 - 47.0 % LAB HEMETOLOGY METHOD 07/21/2024 9:21 AM [facility] MCV 80.3 79.0 - 98.0 FL LAB HEMETOLOGY METHOD 07/21/2024 9:21 AM [facility] MCH 24.7(L) 27.0 - 32.0 pcg LAB HEMETOLOGY METHOD 07/21/2024 9:21 AM [facility] MCHC 30.8(L) 32.0 - 37.0 g/dL LAB HEMETOLOGY METHOD 07/21/2024 9:21 AM [facility] RDW 23.7(H) 11.0 - 15.0 % LAB HEMETOLOGY METHOD 07/21/2024 9:21 AM [facility] Platelets 195 130 - 400 K/mcL LAB HEMETOLOGY METHOD 07/21/2024 9:21 AM [facility] MPV 10.2 7.0 - 11.0 FL LAB HEMETOLOGY METHOD 07/21/2024 9:21 AM [facility] NRBC 0.0 <1.0 % LAB HEMETOLOGY METHOD 07/21/2024 9:21 AM [facility] NRBC Absolute 0.00 <0.10 K/mcL LAB HEMETOLOGY METHOD 07/21/2024 9:21 AM [facility] Blood Venous blood specimen / Unknown Venipuncture / Unknown 07/21/2024 8:55 AM EST 07/21/2024 9:11 AM EST Lencho Stuart MD LAB BLOOD ORDERABLES Final R esult [facility] [address] [place] [address], * (ABNORMAL) Basic metabolic panel (07/21/2024 8:55 AM EST) Sodium 130(L) 133 - 145 mmol/L LAB CHEMISTRY METHOD 07/21/2024 9:50 AM [facility] Potassium 4.8 3.5 - 5.5 mmol/L LAB CHEMISTRY METHOD 07/21/2024 9:50 AM [facility] Chloride 92(L) 96 - 110 mmol/L LAB CHEMISTRY METHOD 07/21/2024 9:50 AM [facility] CO2 29 21 - 32 mmol/L LAB CHEMISTRY METHOD 07/21/2024 9:50 AM [facility] Anion Gap 9 3 - 11 LAB CHEMISTRY METHOD 07/21/2024 9:50 AM [facility] Glucose 142(H) 70 - 100 mg/dL LAB CHEMISTRY METHOD 07/21/2024 9:50 AM [facility] BUN 63(H) 5 - 25 mg/dL LAB CHEMISTRY METHOD 07/21/2024 9:50 AM [facility] Creatinine 5.05(H) 0.50 - 1.10 mg/dL LAB CHEMISTRY METHOD 07/21/2024 9:50 AM [facility] eGFR 8(L) >=60 mL/min/1. 73m2 LAB CHEMISTRY METHOD 07/21/2024 9:50 AM [facility] [...] R esult [facility] [address] [place] [address], [place] [phone] * (ABNORMAL) POCT Glucose, blood (07/21/2024 8:03 AM EST) Glucose POCT 159(H) 70 - 100 mg/dL 07/21/2024 8:04 AM EST [facility] Blood Capillary blood specimen / Unknown 07/21/2024 8:03 AM EST 07/21/2024 8:05 AM EST Lencho Stuart MD LAB POINT OF CARE TE ST DOCKED DEVICE UNSOLICITED RESULTS Final Result [facility] [address] [place] [address], [place] [phone] * SST tube (07/21/2024 5:41 AM EST) Extra Tube Hold for add-ons. 07/21/2024 9:01 AM EST [facility] Comment:Auto resulted. Blood Venous blood specimen / Unknown 07/21/2024 5:41 AM EST 07/21/2024 7:02 AM EST us Lencho Stuart MD LAB BLOOD ORDERABLES Final R esult [facility] [address] [place] [address], * (ABNORMAL) CBC - Every 3 Days (07/21/2024 5:12 AM EST) WBC 18.8(H) 4.8 - 10.8 K/mcL LAB HEMETOLOGY METHOD 07/21/2024 7:22 AM [facility] RBC 2.90(L) 3.80 - 4.80 M/mcL LAB HEMETOLOGY METHOD 07/21/2024 7:22 AM [facility] Hemoglobin 7.3(L) 11.5 - 16.0 g/dL LAB HEMETOLOGY METHOD 07/21/2024 7:22 AM [facility] Hematocrit 23.6(L) 35.0 - 47.0 % LAB HEMETOLOGY METHOD 07/21/2024 7:22 AM [facility] MCV 81.1 79.0 - 98.0 FL LAB HEMETOLOGY METHOD 07/21/2024 7:22 AM [facility] MCH 25.1(L) 27.0 - 32.0 pcg LAB HEMETOLOGY METHOD 07/21/2024 7:22 AM [facility] MCHC 30.9(L) 32.0 - 37.0 g/dL LAB HEMETOLOGY METHOD 07/21/2024 7:22 AM [facility] RDW 23.7(H) 11.0 - 15.0 % LAB HEMETOLOGY METHOD 07/21/2024 7:22 AM [facility] Platelets 200 130 - 400 K/mcL LAB HEMETOLOGY METHOD 07/21/2024 7:22 AM [facility] [...] R esult [facility] [address] [place] [address], [place] [phone] * (ABNORMAL) POCT Glucose, blood (07/21/2024 2:47 AM EST) Glucose POCT 144(H) 70 - 100 mg/dL 07/21/2024 2:48 AM EST [facility] Blood Capillary blood specimen / Unknown 07/21/2024 2:47 AM EST 07/21/2024 2:49 AM EST us Lencho Stuart MD LAB POINT OF CARE TE ST DOCKED DEVICE UNSOLICITED RESULTS Final Result [facility] [address] [place] [address], [place] [phone] * (ABNORMAL) POCT Glucose, blood (07/20/2024 8:11 PM EST) Glucose POCT 140(H) 70 - 100 mg/dL 07/20/2024 8:12 PM EST [facility] Blood Capillary blood specimen / Unknown 07/20/2024 8:11 PM EST 07/20/2024 8:13 PM EST us Lencho Stuart MD LAB POINT OF CARE TE ST DOCKED DEVICE UNSOLICITED RESULTS Final Result Performing Organization Address [facility]/ZIP Co de Phone Number [facility] [address] [place] [address], [place] [phone] * (ABNORMAL) Anti-Xa - Every 6 Hours [...] ORDERABLES Final R esult Performing Organization Address [facility]/ZIP Co de Phone Number [facility] [address] [place] [address], [place] [phone] * (ABNORMAL) POCT Glucose, blood (07/20/2024 4:21 PM EST) Glucose POCT 167(H) 70 - 100 mg/dL 07/20/2024 4:23 PM EST [facility] Blood Capillary blood specimen / Unknown 07/20/2024 4:21 PM EST 07/20/2024 4:24 PM EST us Lencho Stuart MD LAB POINT OF CARE TE ST DOCKED DEVICE UNSOLICITED RESULTS Final Result [facility] [address] [place] [address], [place] [phone] * Activated Partial Thromboplastin Time - STAT (07/20/2024 2:30 PM EST) aPTT 30.0 24.1 - 39.3 sec LAB COAGULATION METHOD 07/20/2024 3:06 PM EST [facility] Blood Venous blood specimen / Unknown Venipuncture / Unknown 07/20/2024 2:30 PM EST 07/20/2024 2:52 PM EST us Lencho Stuart MD LAB BLOOD ORDERABLES Final R esult Performing Organization Address [facility]/ZIP Co de Phone Number [facility] [address] [place] [address], [place] [phone] * (ABNORMAL) Prothrombin Time with INR - [...] R esult [facility] [address] [place] [address], [place] [phone] * (ABNORMAL) POCT Glucose, blood (07/20/2024 11:23 AM EST) Glucose POCT 139(H) 70 - 100 mg/dL 07/20/2024 11:24 AM EST [facility] Blood Capillary blood specimen / Unknown 07/20/2024 11:23 AM EST 07/20/2024 11:26 AM EST Lencho Stuart MD LAB POINT OF CARE TE ST DOCKED DEVICE UNSOLICITED RESULTS Final Result Performing Organization Address [facility]/ZIP Co de Phone Number [facility] [address] [place] [address], [place] [phone] * (ABNORMAL) POCT Glucose, blood (07/20/2024 8:20 AM EST) Glucose POCT 132(H) 70 - 100 mg/dL 07/20/2024 8:20 AM [facility] Blood Capillary blood specimen / Unknown 07/20/2024 8:20 AM EST 07/20/2024 8:21 AM EST Lencho Stuart MD LAB POINT OF CARE TE ST DOCKED DEVICE UNSOLICITED RESULTS Final Result Performing Organization Address [facility] Co de Phone Number [facility] [address] [place] [address], [place] [phone] * (ABNORMAL) CBC auto differential (07/20/2024 5:46 AM EST) WBC 20.9(H) 4.8 - 10.8 K/mcL LAB HEMETOLOGY METHOD 07/20/2024 7:07 AM [facility] RBC 3.00(L) 3.80 - 4.80 M/[facility] LAB HEMETOLOGY METHOD 07/20/2024 7:07 AM [facility] Hemoglobin 7.3(L) 11.5 - 16.0 g/dL LAB HEMETOLOGY METHOD 07/20/2024 7:07 AM [facility] Hematocrit 23.6(L) 35.0 - 47.0 % LAB HEMETOLOGY METHOD 07/20/2024 7:07 AM [facility] MCV 77.9(L) 79.0 - 98.0 FL LAB HEMETOLOGY METHOD 07/20/2024 7:07 AM [facility] MCH 24.1(L) 27.0 - 32.0 pcg LAB HEMETOLOGY METHOD 07/20/2024 7:07 AM [facility] MCHC 30.9(L) 32.0 - 37.0 g/dL LAB HEMETOLOGY METHOD 07/20/2024 7:07 AM [facility] RDW 23.9(H) 11.0 - 15.0 % LAB HEMETOLOGY METHOD 07/20/2024 7:07 AM [facility] Platelets 217 130 - 400 K/mcL LAB HEMETOLOGY METHOD 07/20/2024 7:07 AM [facility] MPV 9.8 7.0 - 11.0 FL LAB HEMETOLOGY METHOD 07/20/2024 7:07 AM [facility] NRBC 0.0 <1.0 % LAB HEMETOLOGY METHOD 07/20/2024 7:07 AM [facility] NRBC Absolute 0.00 <0.10 K/mcL LAB HEMETOLOGY METHOD 07/20/2024 7:07 AM [facility] Neutrophils Relative 86.5 % LAB HEMETOLOGY METHOD 07/20/2024 7:07 AM [facility] Lymphocytes Relative 3.8 % LAB HEMETOLOGY METHOD 07/20/2024 7:07 AM [facility] Monocytes Relative 5.5 % LAB HEMETOLOGY METHOD 07/20/2024 7:07 AM [facility] Eosinophils Relative 2.7 % LAB HEMETOLOGY METHOD 07/20/2024 7:07 AM [facility] Basophils Relative 0.2 % LAB HEMETOLOGY METHOD 07/20/2024 7:07 AM EST [facility] Immature Granulocytes Relative 1.3 % LAB HEMETOLOGY METHOD 07/20/2024 7:07 AM [facility] Neutrophils Absolute 18.10(H) 1.50 - 7.00 K/mcL LAB HEMETOLOGY METHOD 07/20/2024 7:07 AM EST [facility] Lymphocytes Absolute 0.80(L) 1.00 - 5.00 K/mcL LAB HEMETOLOGY METHOD 07/20/2024 7:07 AM [facility] Monocytes Absolute 1.16(H) 0.20 - 1.00 K/mcL LAB HEMETOLOGY METHOD 07/20/2024 7:07 AM [facility] Eosinophils Absolute 0.56(H) 0.00 - 0.50 K/mcL LAB HEMETOLOGY METHOD 07/20/2024 7:07 AM EST [facility] Basophils Absolute 0.04 0.00 - 0.20 K/mcL LAB HEMETOLOGY METHOD 07/20/2024 7:07 AM EST [facility] Immature Granulocytes Absolute 0.27(H) 0.00 - 0.03 K/mcL LAB HEMETOLOGY METHOD 07/20/2024 7:07 AM [facility] Blood Venous blood specimen / Unknown Venipuncture / Unknown 07/20/2024 5:46 AM EST 07/20/2024 6:38 AM EST us Estate Sade GUERRERO LAB BLOOD ORDERABLES Final R esult [facility] [address] [place] [address], * (ABNORMAL) CBC - Every 3 Days (07/20/2024 5:46 AM EST) WBC 20.9(H) 4.8 - 10.8 K/mcL LAB HEMETOLOGY METHOD 07/20/2024 7:07 AM [facility] RBC 3.00(L) 3.80 - 4.80 M/mcL LAB HEMETOLOGY METHOD 07/20/2024 7:07 AM [facility] Hemoglobin 7.3(L) 11.5 - 16.0 g/dL LAB HEMETOLOGY METHOD 07/20/2024 7:07 AM [facility] Hematocrit 23.6(L) 35.0 - 47.0 % LAB HEMETOLOGY METHOD 07/20/2024 7:07 AM [facility] MCV 77.9(L) 79.0 - 98.0 FL LAB HEMETOLOGY METHOD 07/20/2024 7:07 AM [facility] MCH 24.1(L) 27.0 - 32.0 pcg LAB HEMETOLOGY METHOD 07/20/2024 7:07 AM [facility] MCHC 30.9(L) 32.0 - 37.0 g/dL LAB HEMETOLOGY METHOD 07/20/2024 7:07 AM [facility] RDW 23.9(H) 11.0 - 15.0 % LAB HEMETOLOGY METHOD 07/20/2024 7:07 AM [facility] Platelets 217 130 - 400 K/mcL LAB HEMETOLOGY METHOD 07/20/2024 7:07 AM [facility] MPV 9.8 7.0 - 11.0 FL LAB HEMETOLOGY METHOD 07/20/2024 7:07 AM [facility] NRBC 0.0 <1.0 % LAB HEMETOLOGY METHOD 07/20/2024 7:07 AM [facility] NRBC Absolute 0.00 <0.10 K/mcL LAB HEMETOLOGY METHOD 07/20/2024 7:07 AM [facility] Blood Venous blood specimen / Unknown Venipuncture / Unknown 07/20/2024 5:46 AM EST 07/20/2024 6:38 AM EST us Kwesi Guido MD LAB BLOOD ORDERABLES F inal Result Performing Organization Address [facility]/ZIP Co de Phone Number [facility] [address] [place] [address], [place] [phone] * Heparin and low molecular weight anti [...] ORDERABLES Final R esult Performing Organization Address City/[facility]/ZIP Co de Phone Number [facility] [address] [place] [address], [place] [phone] * (ABNORMAL) Basic metabolic panel (07/20/2024 5:46 AM EST) Sodium 132(L) 133 - 145 mmol/L LAB CHEMISTRY METHOD 07/20/2024 8:03 AM EST [facility] Potassium 4.2 3.5 - 5.5 mmol/L LAB CHEMISTRY METHOD 07/20/2024 8:03 AM EST [facility] Chloride 95(L) 96 - 110 mmol/L LAB CHEMISTRY METHOD 07/20/2024 8:03 AM [facility] CO2 29 21 - 32 mmol/L LAB CHEMISTRY METHOD 07/20/2024 8:03 AM [facility] Anion Gap 8 3 - 11 LAB CHEMISTRY METHOD 07/20/2024 8:03 AM [facility] Glucose 113(H) 70 - 100 mg/dL LAB CHEMISTRY METHOD 07/20/2024 8:03 AM [facility] BUN 41(H) 5 - 25 mg/dL LAB CHEMISTRY METHOD 07/20/2024 8:03 AM [facility] Creatinine 3.68(H) 0.50 - 1.10 mg/dL LAB CHEMISTRY METHOD 07/20/2024 8:03 AM [facility] eGFR 12(L) >=60 mL/min/1. 73m2 LAB CHEMISTRY METHOD 07/20/2024 8:03 AM [facility] Comment:Calculation based on the??Chronic Kidney Disease Epidemiology Collaboration (CKD-EPI) equation refit??without adjustment for race. BUN/Creatinine Ratio 11.1 LAB CHEMISTRY METHOD 07/20/2024 8:03 AM [facility] Calcium 7.3(L) 8.5 - 10.5 mg/dL LAB CHEMISTRY METHOD 07/20/2024 8:03 AM [facility] Blood Venous blood specimen / Unknown Venipuncture / Unknown 07/20/2024 5:46 AM EST 07/20/2024 6:38 AM EST us Lencho Stuart MD LAB BLOOD ORDERABLES Final R esult [facility] [address] [place] [address], * (ABNORMAL) POCT Glucose, blood (07/19/2024 8:18 PM EST) Glucose POCT 146(H) 70 - 100 mg/dL 07/19/2024 8:18 PM EST [facility] Blood Capillary blood specimen / Unknown 07/19/2024 8:18 PM EST 07/19/2024 8:19 PM EST us Lencho Stuart MD LAB POINT OF CARE TE ST DOCKED DEVICE UNSOLICITED RESULTS Final Result Performing Organization Address City/[facility]/ZIP Co de Phone Number [facility] [address] [place] [address], [place] [phone] * (ABNORMAL) POCT Glucose, blood (07/19/2024 7:29 PM EST) Glucose POCT 152(H) 70 - 100 mg/dL 07/19/2024 7:30 PM EST [facility] Blood Capillary blood specimen / Unknown 07/19/2024 7:29 PM EST 07/19/2024 7:31 PM EST us Lencho Stuart MD LAB POINT OF CARE TE ST DOCKED DEVICE UNSOLICITED RESULTS Final Result Performing Organization Address [facility]/ZIP Co de Phone Number [facility] [address] [place] [address], [place] [phone] * (ABNORMAL) POCT Glucose, blood (07/19/2024 4:01 PM EST) Glucose POCT 139(H) 70 - 100 mg/dL 07/19/2024 4:02 PM EST [facility] Blood Capillary blood specimen / Unknown 07/19/2024 4:01 PM EST 07/19/2024 4:03 PM EST us Lencho Stuart MD LAB POINT OF CARE TE ST DOCKED DEVICE UNSOLICITED RESULTS Final Result Performing Organization Address City/[facility]/ZIP Co de Phone Number [facility] [address] [place] [address], * (ABNORMAL) Hemoglobin and hematocrit (07/19/2024 2:31 [...] ORDERABLES Final R esult Performing Organization Address City/[facility]/ZIP Co de Phone Number [facility] [address] [place] [address], * Creatinine, urine, random (07/19/2024 12:01 PM EST) Creatinine, Urine 41.0 mg/dL LAB CHEMISTRY METHOD 07/19/2024 1:17 PM EST [facility] Urine Urine specimen obtained by clean catch procedure / Unknown Non-blood Collection / Unknown 07/19/2024 12:01 PM EST 07/19/2024 12:30 PM EST Miguel Quiles MD LAB URINE ORDERABLES Final Res ult [facility] [address] [place] [address], * (ABNORMAL) Microalbumin creatinine urine ratio (07/19/2024 [...] Res ult [facility] [address] [place] [address], [place] [phone] * (ABNORMAL) POCT Glucose, blood (07/19/2024 11:32 AM EST) Glucose POCT 132(H) 70 - 100 mg/dL 07/19/2024 11:33 AM EST [facility] Blood Capillary blood specimen / Unknown 07/19/2024 11:32 AM EST 07/19/2024 11:34 AM EST us Lencho Stuart MD LAB POINT OF CARE TE ST DOCKED DEVICE UNSOLICITED RESULTS Final Result [facility] [address] [place] [address], [place] [phone] * (ABNORMAL) POCT Glucose, blood (07/19/2024 9:07 AM EST) Glucose POCT 117(H) 70 - 100 mg/dL 07/19/2024 9:07 AM EST [facility] Blood Capillary blood specimen / Unknown 07/19/2024 9:07 AM EST 07/19/2024 9:09 AM EST us Lencho Stuart MD LAB POINT OF CARE TE ST DOCKED DEVICE UNSOLICITED RESULTS Final Result [facility] [address] [place] [address], [place] [phone] * (ABNORMAL) CBC auto differential (07/19/2024 7:55 AM EST) WBC 25.0(H) 4.8 - 10.8 K/mcL LAB HEMETOLOGY METHOD 07/19/2024 8:36 AM EST [facility] RBC 2.80(L) 3.80 - 4.80 M/mcL LAB HEMETOLOGY METHOD 07/19/2024 8:36 AM [facility] Hemoglobin 7.0(L) 11.5 - 16.0 g/dL LAB HEMETOLOGY METHOD 07/19/2024 8:36 AM [facility] Hematocrit 22.2(L) 35.0 - 47.0 % LAB HEMETOLOGY METHOD 07/19/2024 8:36 AM [facility] MCV 79.0 79.0 - 98.0 FL LAB HEMETOLOGY METHOD 07/19/2024 8:36 AM [facility] MCH 24.9(L) 27.0 - 32.0 pcg LAB HEMETOLOGY METHOD 07/19/2024 8:36 AM [facility] MCHC 31.5(L) 32.0 - 37.0 g/dL LAB HEMETOLOGY METHOD 07/19/2024 8:36 AM [facility] RDW 23.9(H) 11.0 - 15.0 % LAB HEMETOLOGY METHOD 07/19/2024 8:36 AM [facility] Platelets 218 130 - 400 K/mcL LAB HEMETOLOGY METHOD 07/19/2024 8:36 AM [facility] MPV 10.6 7.0 - 11.0 FL LAB HEMETOLOGY METHOD 07/19/2024 8:36 AM [facility] NRBC 0.0 <1.0 % LAB HEMETOLOGY METHOD 07/19/2024 8:36 AM [facility] NRBC Absolute 0.00 <0.10 K/mcL LAB HEMETOLOGY METHOD 07/19/2024 8:36 AM [facility] Neutrophils Relative 87.6 % LAB HEMETOLOGY METHOD 07/19/2024 8:36 AM [facility] Comment:This is an appended report. These results have been appended to a previously preliminary verified report. Lymphocytes Relative 3.0 % LAB HEMETOLOGY METHOD 07/19/2024 8:36 AM [facility] Comment:This is an appended report. These results have been appended to a previously preliminary verified report. Monocytes Relative 4.6 % LAB HEMETOLOGY METHOD 07/19/2024 8:36 AM [facility] Comment:This is an appended report. These results have been appended to a previously preliminary verified report. Eosinophils Relative 3.0 % LAB HEMETOLOGY METHOD 07/19/2024 8:36 AM [facility] Comment:This is an appended report. These results have been appended to a previously preliminary verified report. Basophils Relative 0.2 % LAB HEMETOLOGY METHOD 07/19/2024 8:36 AM [facility] Comment:This is an appended report. These results have been appended to a previously preliminary verified report. Immature Granulocytes Relative 1.6 % LAB HEMETOLOGY METHOD 07/19/2024 8:36 AM [facility] Comment:This is an appended report. These results have been appended to a previously preliminary verified report. Neutrophils Absolute 21.89(H) 1.50 - 7.00 K/mcL LAB HEMETOLOGY METHOD 07/19/2024 8:36 AM [facility] Comment:This is an appended report. These results have been appended to a previously preliminary verified report. Lymphocytes Absolute 0.76(L) 1.00 - 5.00 K/[facility] HEMETOLOGY METHOD 07/19/2024 8:36 AM EST [facility] Comment:This is an appended report. These results have been appended to a previously preliminary verified report. Monocytes Absolute 1.14(H) 0.20 - 1.00 K/[facility] LAB HEMETOLOGY METHOD 07/19/2024 8:36 AM EST [facility] Comment:This is an appended report. These results have been appended to a previously preliminary verified report. Eosinophils Absolute 0.76(H) 0.00 - 0.50 K/[facility] 07/19/2024 8:36 AM EST [facility] Comment:This is an appended report. These results have been appended to a previously preliminary verified report. Basophils Absolute 0.05 0.00 - 0.20 K/[facility] 07/19/2024 8:36 AM EST [facility] Comment:This is an appended report. These results have been appended to a previously preliminary verified report. Immature Granulocytes Absolute 0.40(H) 0.00 - 0.03 K/[facility] 07/19/2024 8:36 AM EST [facility] Comment:This is an appended report. These results have been appended to a previously preliminary verified report. Blood Venous blood specimen / Unknown Venipuncture / Unknown 07/19/2024 7:55 AM EST 07/19/2024 7:55 AM EST us [facility] LAB BLOOD ORDERABLES Final R esult [facility] [address] [place] [address], * (ABNORMAL) Parathyroid hormone related protein (07/19/2024 7:55 AM EST) [facility] PTH-related Protein (PTHrP) 24(H) 11 - 20 [...] analytical performance characteristics have been determined by [facility]. It has not been cleared or approved by FDA. This assay has been validated pursuant to the CLIA regulations and is used for clinical purposes. Test Performed at: [facility] [id number] [place], [place] ??[id number] ? I Bethany GUERRERO, PhD, NINA Blood Venous blood specimen / Unknown Venipuncture / Unknown 07/19/2024 7:55 AM EST 07/19/2024 7:55 AM EST Jesus Manuel HEDRICK LAB BLOOD ORDERABLES Final Resu lt [facility] [address] [place] [address] * (ABNORMAL) Anti-neutrophilic cytoplasmic antibody (07/19/2024 6:52 AM EST) [facility] Myeloperoxidase Ab Negative Negative LAB CHEMISTRY METHOD [...] ORDERABLES Final Res ult Performing Organization Address [facility]/ZIP Co de Phone Number [facility] [address] [place] [address], [place] [phone] * Anti-Xa - Every 6 Hours (07/19/2024 6:52 AM EST) Pathologist [facility] Heparin Anti-Xa 0.37 0.30 - 0.70 [...] ORDERABLES Final R esult Performing Organization Address [facility]/ZIP Co de Phone Number [facility] [address] [place] [address], [place] [phone] * (ABNORMAL) Basic metabolic panel (07/19/2024 6:52 AM EST) [facility] Sodium 128(L) 133 - 145 mmol/L LAB [...] 11 LAB CHEMISTRY METHOD 07/19/2024 8:56 AM [facility] Glucose 170(H) 70 - 100 mg/dL LAB CHEMISTRY METHOD 07/19/2024 8:56 AM [facility] BUN 83(H) 5 - 25 mg/dL LAB CHEMISTRY METHOD 07/19/2024 8:56 AM [facility] Creatinine 5.96(H) 0.50 - 1.10 mg/dL LAB CHEMISTRY METHOD 07/19/2024 8:56 AM [facility] LAB eGFR 7(L) >=60 mL/min/1. 73m2 LAB CHEMISTRY METHOD 07/19/2024 8:56 AM [facility] LAB Comment:Calculation based on the??Chronic Kidney Disease Epidemiology Collaboration (CKD-EPI) equation refit??without adjustment for race. BUN/Creatinine Ratio 13.9 LAB CHEMISTRY METHOD 07/19/2024 8:56 AM [facility] Calcium 7.7(L) 8.5 - 10.5 mg/dL LAB CHEMISTRY METHOD 07/19/2024 8:56 AM [facility] Blood Venous blood specimen / Unknown Venipuncture / Unknown 07/19/2024 6:52 AM EST 07/19/2024 7:21 AM EST us Estdimas Stuart MD LAB BLOOD ORDERABLES Final R esult [facility] [address] [place] [address], * (ABNORMAL) POCT Glucose, blood (07/18/2024 8:27 PM EST) Glucose POCT 193(H) 70 - 100 mg/dL 07/18/2024 8:27 PM EST [facility] Blood Capillary blood specimen / Unknown 07/18/2024 8:27 PM EST 07/18/2024 8:28 PM EST us Lencho Stuart MD LAB POINT OF CARE TE ST DOCKED DEVICE UNSOLICITED RESULTS Final Result [facility] [address] [place] [address], [place] [phone] * Anti-Xa - Every 6 Hours (07/18/2024 [...] ORDERABLES F inal Result Performing Organization Address [facility]/ZIP Co de Phone Number [facility] [address] [place] [address], [place] [phone] * (ABNORMAL) POCT Glucose, blood (07/18/2024 4:00 PM EST) [facility] Glucose POCT 210(H) 70 - 100 mg/dL 07/18/2024 4:01 PM EST [facility] Blood Capillary blood specimen / Unknown 07/18/2024 4:00 PM EST 07/18/2024 4:02 PM EST us Lencho Stuart MD LAB POINT OF CARE TE ST DOCKED DEVICE UNSOLICITED RESULTS Final Result [facility] [address] [place] [address], [place] [phone] * Anti-Xa - Every 6 Hours (07/18/2024 [...] inal Result [facility] [address] [place] [address], [place] [phone] * (ABNORMAL) POCT Glucose, blood (07/18/2024 11:17 AM EST) Glucose POCT 244(H) 70 - 100 mg/dL 07/18/2024 11:19 AM EST [facility] Blood Capillary blood specimen / Unknown 07/18/2024 11:17 AM EST 07/18/2024 11:21 AM EST Lencho Stuart MD LAB POINT OF CARE TE ST DOCKED DEVICE UNSOLICITED RESULTS Final Result [facility] [address] [place] [address], [place] [phone] * (ABNORMAL) POCT Glucose, blood (07/18/2024 7:54 AM EST) Glucose POCT 219(H) 70 - 100 mg/dL 07/18/2024 7:54 AM [facility] Blood Capillary blood specimen / Unknown 07/18/2024 7:54 AM EST 07/18/2024 7:56 AM EST Lencho Stuart MD LAB POINT OF CARE TE ST DOCKED DEVICE UNSOLICITED RESULTS Final Result Performing Organization Address City/[facility]/ZIP Co de Phone Number [facility] [address] [place] [address], [place] [phone] * Robertson urine culture tube (07/18/2024 6:10 AM EST) Pathologist [facility] Extra Tube Hold for add-ons. 07/18/2024 8:01 AM [facility] Comment:Auto resulted. Urine Urine specimen obtained by clean catch procedure / Unknown 07/18/2024 6:10 AM EST 07/18/2024 6:37 AM EST Lencho Stuart MD LAB URINE ORDERABLES Final R esult Performing Organization Address City/[facility]/ZIP Co de Phone Number [facility] [address] [place] [address], [place] [phone] * (ABNORMAL) Urinalysis microscopic only (07/18/2024 6:09 AM EST) RBC, Urine 10(H) 0 - 4 /HPF 07/18/2024 7:53 AM [facility] WBC, Urine >100(H) 0 - 4 /HPF 07/18/2024 7:53 AM [facility] Squamous Epithelial, Urine 10 0 - 60 /LPF 07/18/2024 7:53 AM [facility] Non-Squamous Epithelial, Urine 2-5 Transitional epithelial cells. /LPF 07/18/2024 7:53 AM [facility] Bacteria, Urine Many(A) Negative /HPF 07/18/2024 7:53 AM EST [facility] Other Casts, Urine Rare Coarse Granular casts. /LPF 07/18/2024 7:53 AM EST [facility] Urine Indwelling urinary catheter / Unknown Non-blood Collection / Unknown 07/18/2024 6:09 AM EST 07/18/2024 6:36 AM EST us Kwesi Guido MD LAB URINE ORDERABLES F inal Result Performing Organization Address City/[facility]/ZIP Co de Phone Number [facility] [address] [place] [address], [place] [phone] * Anti-Xa - Every 6 Hours (07/18/2024 [...] ORDERABLES F inal Result Performing Organization Address City/[facility]/ZIP Co de Phone Number [facility] [address] [place] [address], [place] [phone] * (ABNORMAL) CBC auto differential (07/18/2024 6:07 AM EST) WBC 25.5(H) 4.8 - 10.8 K/mcL LAB HEMETOLOGY METHOD 07/18/2024 7:23 AM EST [facility] RBC 3.20(L) 3.80 - 4.80 M/mcL LAB HEMETOLOGY METHOD 07/18/2024 7:23 AM [facility] Hemoglobin 7.8(L) 11.5 - 16.0 g/dL LAB HEMETOLOGY METHOD 07/18/2024 7:23 AM [facility] Hematocrit 24.9(L) 35.0 - 47.0 % LAB HEMETOLOGY METHOD 07/18/2024 7:23 AM [facility] MCV 77.6(L) 79.0 - 98.0 FL LAB HEMETOLOGY METHOD 07/18/2024 7:23 AM [facility] MCH 24.3(L) 27.0 - 32.0 pcg LAB HEMETOLOGY METHOD 07/18/2024 7:23 AM [facility] MCHC 31.3(L) 32.0 - 37.0 g/dL LAB HEMETOLOGY METHOD 07/18/2024 7:23 AM [facility] RDW 24.1(H) 11.0 - 15.0 % LAB HEMETOLOGY METHOD 07/18/2024 7:23 AM [facility] Platelets 242 130 - 400 K/mcL LAB HEMETOLOGY METHOD 07/18/2024 7:23 AM [facility] MPV 9.6 7.0 - 11.0 FL LAB HEMETOLOGY METHOD 07/18/2024 7:23 AM [facility] NRBC 0.0 <1.0 % LAB HEMETOLOGY METHOD 07/18/2024 7:23 AM [facility] NRBC Absolute 0.00 <0.10 K/mcL LAB HEMETOLOGY METHOD 07/18/2024 7:23 AM [facility] Neutrophils Relative 89.3 % LAB HEMETOLOGY METHOD 07/18/2024 7:23 AM [facility] Comment:This is an appended report. These results have been appended to a previously preliminary verified report. Lymphocytes Relative 2.8 % LAB HEMETOLOGY METHOD 07/18/2024 7:23 AM [facility] Comment:This is an appended report. These results have been appended to a previously preliminary verified report. Monocytes Relative 4.2 % LAB HEMETOLOGY METHOD 07/18/2024 7:23 AM [facility] Comment:This is an appended report. These results have been appended to a previously preliminary verified report. Eosinophils Relative 1.9 % LAB HEMETOLOGY METHOD 07/18/2024 7:23 AM [facility] Comment:This is an appended report. These results have been appended to a previously preliminary verified report. Basophils Relative 0.2 % LAB HEMETOLOGY METHOD 07/18/2024 7:23 AM [facility] Comment:This is an appended report. These results have been appended to a previously preliminary verified report. Immature Granulocytes Relative 1.6 % LAB HEMETOLOGY METHOD 07/18/2024 7:23 AM [facility] Comment:This is an appended report. These results have been appended to a previously preliminary verified report. Neutrophils Absolute 22.74(H) 1.50 - 7.00 K/mcL LAB HEMETOLOGY METHOD 07/18/2024 7:23 AM [facility] Comment:This is an appended report. These results have been appended to a previously preliminary verified report. Lymphocytes Absolute 0.72(L) 1.00 - 5.00 K/mcL LAB HEMETOLOGY METHOD 07/18/2024 7:23 AM [facility] Comment:This is an appended report. These results have been appended to a previously preliminary verified report. Monocytes Absolute 1.06(H) 0.20 - 1.00 K/mcL LAB HEMETOLOGY METHOD 07/18/2024 7:23 AM [facility] [...] Absolute 0.04 0.00 - 0.20 K/mcL LAB [facility] 07/18/2024 7:23 AM EST [facility] Comment:This is an appended report. These results have been appended to a previously preliminary verified report. Immature Granulocytes Absolute 0.41(H) 0.00 - 0.03 K/mcL LAB [facility] METHOD 07/18/2024 7:23 AM EST [facility] Comment:This is an appended report. These results have been appended to a previously preliminary verified report. Blood Venous blood specimen / Unknown Venipuncture / Unknown 07/18/2024 6:07 AM EST 07/18/2024 7:16 AM EST us Kwesi Guido MD LAB BLOOD ORDERABLES F inal Result [facility] [address] [place] [address], [place] [phone] * (ABNORMAL) Calcium, ionized (07/18/2024 6:07 AM EST) Calcium Ionized 4.28(L) 4.50 - 5.30 mg/dL 07/18/2024 6:46 AM EST [facility] Blood Venous blood specimen / Unknown 07/18/2024 6:07 AM EST 07/18/2024 6:33 AM EST us Kwesi Guido MD LAB BLOOD ORDERABLES F inal Result [facility] [address] [place] [address], [place] [phone] * (ABNORMAL) Basic metabolic panel (07/18/2024 6:07 AM EST) Sodium 132(L) 133 - 145 mmol/L LAB CHEMISTRY METHOD 07/18/2024 7:48 AM [facility] Potassium 4.4 3.5 - 5.5 mmol/L LAB CHEMISTRY METHOD 07/18/2024 7:48 AM [facility] Chloride 95(L) 96 - 110 mmol/L LAB CHEMISTRY METHOD 07/18/2024 7:48 AM [facility] CO2 27 21 - 32 mmol/L LAB CHEMISTRY METHOD 07/18/2024 7:48 AM [facility] Anion Gap 10 3 - 11 LAB CHEMISTRY METHOD 07/18/2024 7:48 AM [facility] Glucose 225(H) 70 - 100 mg/dL LAB CHEMISTRY METHOD 07/18/2024 7:48 AM [facility] BUN 67(H) 5 - 25 mg/dL LAB CHEMISTRY METHOD 07/18/2024 7:48 AM [facility] Creatinine 4.92(H) 0.50 - 1.10 mg/dL LAB CHEMISTRY METHOD 07/18/2024 7:48 AM [facility] eGFR 8(L) >=60 mL/min/1. 73m2 LAB CHEMISTRY METHOD 07/18/2024 7:48 AM [facility] Comment:Calculation based on the??Chronic Kidney Disease Epidemiology Collaboration (CKD-EPI) equation refit??without adjustment for race. BUN/Creatinine Ratio 13.6 LAB CHEMISTRY METHOD 07/18/2024 7:48 AM [facility] Calcium 7.5(L) 8.5 - 10.5 mg/dL LAB CHEMISTRY METHOD 07/18/2024 7:48 AM [facility] Blood Venous blood specimen / Unknown 07/18/2024 6:07 AM EST 07/18/2024 6:34 AM EST us Kwesi Guido MD LAB BLOOD ORDERABLES F inal Result Performing Organization Address City/[facility]/ZIP Co de Phone Number [facility] [address] [place] [address], [place] [phone] * (ABNORMAL) Anti-Xa - Every 6 Hours (07/18/2024 12:19 AM EST) Pathologist [facility] Heparin Anti-Xa 0.19(L) 0.30 - 0.70 I [...] ORDERABLES F inal Result Performing Organization Address [facility] Co de Phone Number [facility] [address] [place] [address], [place] [phone] * (ABNORMAL) POCT Glucose, blood (07/17/2024 9:12 PM EST) [facility] Glucose POCT 240(H) 70 - 100 mg/dL 07/17/2024 9:13 PM EST [facility] Blood Capillary blood specimen / Unknown 07/17/2024 9:12 PM EST 07/17/2024 9:14 PM EST us Kwesi Guido MD LAB POINT OF C ARE TEST DOCKED DEVICE UNSOLICITED RESULTS Final Result [facility] [address] [place] [address], [place] [phone] * Anti-Xa - Every 6 Hours (07/17/2024 6:37 PM EST) [facility] Heparin Anti-Xa 0.30 0.30 - 0.70 I Unit/mL LAB COAGULATION METHOD 07/17/2024 7:18 PM EST [facility] Blood Venous blood specimen / Unknown Venipuncture / Unknown 07/17/2024 6:37 PM EST 07/17/2024 7:06 PM EST Narrative [facility] - 07/17/2024 7:18 PM EST Therapeutic range listed is for Unfractionated Heparin. LMW Heparin therapeutic range: 0.50-1.20 IU/mL us Kewsi Guido MD LAB BLOOD ORDERABLES F inal Result [facility] [address] [place] [address], [place] [phone] * (ABNORMAL) POCT Glucose, blood (07/17/2024 4:15 PM EST) [facility] Glucose POCT 238(H) 70 - 100 mg/dL 07/17/2024 4:16 PM EST [facility] Blood Capillary blood specimen / Unknown 07/17/2024 4:15 PM EST 07/17/2024 4:17 PM EST us Kwesi Guido MD LAB POINT OF C ARE TEST DOCKED DEVICE UNSOLICITED RESULTS Final Result [facility] [address] [place] [address], [place] [phone] * Anti-Xa - Every 6 Hours (07/17/2024 [...] inal Result [facility] [address] [place] [address], [place] [phone] * (ABNORMAL) POCT Glucose, blood (07/17/2024 11:19 AM EST) Glucose POCT 307(H) 70 - 100 mg/dL 07/17/2024 11:25 AM EST [facility] Blood Capillary blood specimen / Unknown 07/17/2024 11:19 AM EST 07/17/2024 11:26 AM EST us Kwesi Guido MD LAB POINT OF C ARE TEST DOCKED DEVICE UNSOLICITED RESULTS Final Result [facility] [address] [place] [address], [place] [phone] * (ABNORMAL) POCT Glucose, blood (07/17/2024 7:57 AM EST) Glucose POCT 258(H) 70 - 100 mg/dL 07/17/2024 7:58 AM EST [facility] Blood Capillary blood specimen / Unknown 07/17/2024 7:57 AM EST 07/17/2024 7:59 AM EST us Kwesi Guido MD LAB POINT OF C ARE TEST DOCKED DEVICE UNSOLICITED RESULTS Final Result Performing Organization Address [facility]/ZIP Co de Phone Number [facility] [address] [place] [address], [place] [phone] * (ABNORMAL) Anti-Xa - Every 6 Hours (07/17/2024 6:30 AM EST) [facility] Heparin Anti-Xa 0.20(L) 0.30 - 0.70 I [...] ORDERABLES F inal Result Performing Organization Address City/[facility]/ZIP Co de Phone Number [facility] [address] [place] [address], [place] [phone] * (ABNORMAL) CBC auto differential (07/17/2024 6:30 AM EST) [facility] WBC 23.0(H) 4.8 - 10.8 K/mcL LAB HEMETOLOGY METHOD 07/17/2024 8:50 AM EST [facility] RBC 3.30(L) 3.80 - 4.80 M/mcL LAB HEMETOLOGY METHOD 07/17/2024 8:50 AM EST [facility] Hemoglobin 8.0(L) 11.5 - 16.0 g/dL LAB HEMETOLOGY METHOD 07/17/2024 8:50 AM EST [facility] Hematocrit 25.6(L) 35.0 - 47.0 % LAB HEMETOLOGY METHOD 07/17/2024 8:50 AM [facility] MCV 78.5(L) 79.0 - 98.0 FL LAB HEMETOLOGY METHOD 07/17/2024 8:50 AM [facility] MCH 24.5(L) 27.0 - 32.0 pcg LAB HEMETOLOGY METHOD 07/17/2024 8:50 AM [facility] MCHC 31.3(L) 32.0 - 37.0 g/dL LAB HEMETOLOGY METHOD 07/17/2024 8:50 AM [facility] RDW 23.9(H) 11.0 - 15.0 % LAB HEMETOLOGY METHOD 07/17/2024 8:50 AM [facility] Platelets 252 130 - 400 K/mcL LAB HEMETOLOGY METHOD 07/17/2024 8:50 AM [facility] MPV 9.9 7.0 - 11.0 FL LAB HEMETOLOGY METHOD 07/17/2024 8:50 AM [facility] NRBC 0.0 <1.0 % LAB HEMETOLOGY METHOD 07/17/2024 8:50 AM [facility] NRBC Absolute 0.00 <0.10 K/mcL LAB HEMETOLOGY METHOD 07/17/2024 8:50 AM [facility] Neutrophils Relative 90.9 % LAB HEMETOLOGY METHOD 07/17/2024 8:50 AM [facility] Lymphocytes Relative 2.6 % LAB HEMETOLOGY METHOD 07/17/2024 8:50 AM [facility] Monocytes Relative 4.8 % LAB HEMETOLOGY METHOD 07/17/2024 8:50 AM [facility] Eosinophils Relative 0.5 % [...] inal Result [facility] [address] [place] [address], * (ABNORMAL) CBC - Every 3 Days (07/17/2024 6:30 AM EST) [facility] WBC 23.0(H) 4.8 - 10.8 K/mcL LAB HEMETOLOGY METHOD 07/17/2024 8:12 AM [facility] RBC 3.30(L) 3.80 - 4.80 M/mcL LAB HEMETOLOGY METHOD 07/17/2024 8:12 AM [facility] Hemoglobin 8.0(L) 11.5 - 16.0 g/dL LAB HEMETOLOGY METHOD 07/17/2024 8:12 AM [facility] Hematocrit 25.6(L) 35.0 - 47.0 % LAB HEMETOLOGY METHOD 07/17/2024 8:12 AM [facility] MCV 78.5(L) 79.0 - 98.0 FL LAB HEMETOLOGY METHOD 07/17/2024 8:12 AM [facility] MCH 24.5(L) 27.0 - 32.0 pcg LAB HEMETOLOGY METHOD 07/17/2024 8:12 AM [facility] MCHC 31.3(L) 32.0 - 37.0 g/dL LAB HEMETOLOGY METHOD 07/17/2024 8:12 AM [facility] RDW 23.9(H) 11.0 - 15.0 % LAB HEMETOLOGY METHOD 07/17/2024 8:12 AM [facility] Platelets 252 130 - 400 K/mcL LAB HEMETOLOGY METHOD 07/17/2024 8:12 AM [facility] MPV 9.9 7.0 - 11.0 FL LAB HEMETOLOGY METHOD 07/17/2024 8:12 AM [facility] NRBC 0.0 <1.0 % LAB HEMETOLOGY METHOD 07/17/2024 8:12 AM [facility] NRBC Absolute 0.00 <0.10 K/mcL LAB HEMETOLOGY METHOD 07/17/2024 8:12 AM EST [facility] Blood Venous blood specimen / Unknown Venipuncture / Unknown 07/17/2024 6:30 AM EST 07/17/2024 7:06 AM EST us Kwesi Guido MD LAB BLOOD ORDERABLES F inal Result Performing Organization Address City/[facility]/ZIP Co de Phone Number [facility] [address] [place] [address], [place] [phone] * Phosphorus (07/17/2024 6:30 AM EST) Phosphorus 2.9 2.5 - 4.5 mg/dL LAB CHEMISTRY METHOD 07/17/2024 8:09 AM EST [facility] Blood Venous blood specimen / Unknown Venipuncture / Unknown 07/17/2024 6:30 AM EST 07/17/2024 7:06 AM EST us Kwesi Guido MD LAB BLOOD ORDERABLES F inal Result Performing Organization Address [facility] Co de Phone Number [facility] [address] [place] [address], [place] [phone] * Magnesium (07/17/2024 6:30 AM EST) Magnesium 2.2 1.9 - 2.6 mg/dL LAB CHEMISTRY METHOD 07/17/2024 8:09 AM EST [facility] Blood Venous blood specimen / Unknown Venipuncture / Unknown 07/17/2024 6:30 AM EST 07/17/2024 7:06 AM EST us Kwesi Guido MD LAB BLOOD ORDERABLES F inal Result Performing Organization Address City/[facility]/ZIP Co de Phone Number [facility] [address] [place] [address], [place] [phone] * (ABNORMAL) Basic metabolic panel (07/17/2024 6:30 AM EST) Sodium 133 133 - 145 mmol/L LAB CHEMISTRY METHOD 07/17/2024 8:09 AM [facility] Potassium 3.8 3.5 - 5.5 mmol/L LAB CHEMISTRY METHOD 07/17/2024 8:09 AM [facility] Chloride 96 96 - 110 mmol/L LAB CHEMISTRY METHOD 07/17/2024 8:09 AM [facility] CO2 26 21 - 32 mmol/L LAB CHEMISTRY METHOD 07/17/2024 8:09 AM [facility] Anion Gap 11 3 - 11 LAB CHEMISTRY METHOD 07/17/2024 8:09 AM [facility] Glucose 293(H) 70 - 100 mg/dL LAB CHEMISTRY METHOD 07/17/2024 8:09 AM [facility] BUN 53(H) 5 - 25 mg/dL LAB CHEMISTRY METHOD 07/17/2024 8:09 AM [facility] Creatinine 4.03(H) 0.50 - 1.10 mg/dL LAB CHEMISTRY METHOD 07/17/2024 8:09 AM [facility] eGFR 11(L) >=60 mL/min/1. 73m2 LAB CHEMISTRY METHOD 07/17/2024 8:09 AM [facility] Comment:Calculation based on the??Chronic Kidney Disease Epidemiology Collaboration (CKD-EPI) equation refit??without adjustment for race. BUN/Creatinine Ratio 13.2 LAB CHEMISTRY METHOD 07/17/2024 8:09 AM [facility] Calcium 7.7(L) 8.5 - 10.5 mg/dL LAB CHEMISTRY METHOD 07/17/2024 8:09 AM [facility] Blood Venous blood specimen / Unknown Venipuncture / Unknown 07/17/2024 6:30 AM EST 07/17/2024 7:06 AM EST us Kwesi Guido MD LAB BLOOD ORDERABLES F inal Result Performing Organization Address City/[facility]/ZIP Co de Phone Number [facility] [address] [place] [address], [place] [phone] * (ABNORMAL) Anti-Xa - Every 6 Hours (07/17/2024 12:16 AM EST) [facility] Heparin Anti-Xa 0.14(L) 0.30 - 0.70 I [...] ORDERABLES F inal Result Performing Organization Address [facility] Co de Phone Number [facility] [address] [place] [address], [place] [phone] * (ABNORMAL) POCT Glucose, blood (07/16/2024 8:30 PM EST) [facility] Glucose POCT 263(H) 70 - 100 mg/dL 07/16/2024 8:31 PM EST [facility] Blood Capillary blood specimen / Unknown 07/16/2024 8:30 PM EST 07/16/2024 8:33 PM EST us Kwesi Guido MD LAB POINT OF C ARE TEST DOCKED DEVICE UNSOLICITED RESULTS Final Result [facility] [address] [place] [address], [place] [phone] * (ABNORMAL) Anti-Xa - STAT (07/16/2024 5:50 PM EST) [facility] Heparin Anti-Xa <0.04(L) 0.30 - 0.70 I [...] inal Result [facility] [address] [place] [address], [place] [phone] * Activated Partial Thromboplastin Time - STAT (07/16/2024 5:50 PM EST) [facility] aPTT 31.3 24.1 - 39.3 sec LAB COAGULATION METHOD 07/16/2024 6:13 PM EST [facility] Blood Venous blood specimen / Unknown Venipuncture / Unknown 07/16/2024 5:50 PM EST 07/16/2024 6:01 PM EST us Kwesi Guido MD LAB BLOOD ORDERABLES F inal Result [facility] [address] [place] [address], [place] [phone] * (ABNORMAL) POCT Glucose, blood (07/16/2024 4:28 PM EST) Glucose POCT 170(H) 70 - 100 mg/dL 07/16/2024 4:31 PM EST [facility] Blood Capillary blood specimen / Unknown 07/16/2024 4:28 PM EST 07/16/2024 4:32 PM EST us Kwesi Guido MD LAB POINT OF C ARE TEST DOCKED DEVICE UNSOLICITED RESULTS Final Result [facility] [address] [place] [address], [place] [phone] * Vascular US duplex lower extremity venous [...] Signed Date: 07/16/2024 12:33 ET Workstation ID: [id number] Transcribed By: Self Edit Transcribed Date: 07/16/2024 [...] Signed Date: 07/16/2024 12:33 ET Workstation ID: [id number] Transcribed By: Self Edit Transcribed Date: 07/16/2024 12:28 ET us Kwesi Guido MD CV VASCULAR PROCEDURES Final Result * (ABNORMAL) POCT Glucose, blood (07/16/2024 10:42 AM EST) Pathologist [facility] Glucose POCT 105(H) 70 - 100 mg/dL 07/16/2024 10:44 AM EST [facility] Blood Capillary blood specimen / Unknown 07/16/2024 10:42 AM EST 07/16/2024 10:45 AM EST us Kwesi Guido MD LAB POINT OF C ARE TEST DOCKED DEVICE UNSOLICITED RESULTS Final Result [facility] [address] [place] [address], [place] [phone] * (ABNORMAL) Basic metabolic panel (07/16/2024 6:45 AM EST) Pathologist [facility] Sodium 135 133 - 145 mmol/L LAB CHEMISTRY METHOD 07/16/2024 8:40 AM EST [facility] Potassium 3.8 3.5 - 5.5 mmol/L LAB CHEMISTRY METHOD 07/16/2024 8:40 AM [facility] Chloride 103 96 - 110 mmol/L LAB CHEMISTRY METHOD 07/16/2024 8:40 AM [facility] CO2 18(L) 21 - 32 mmol/L LAB CHEMISTRY METHOD 07/16/2024 8:40 AM [facility] Anion Gap 14(H) 3 - 11 LAB CHEMISTRY METHOD 07/16/2024 8:40 AM [facility] Glucose 100 70 - 100 mg/dL LAB CHEMISTRY METHOD 07/16/2024 8:40 AM [facility] BUN 77(H) 5 - 25 mg/dL LAB CHEMISTRY METHOD 07/16/2024 8:40 AM [facility] Creatinine 5.37(H) 0.50 - 1.10 mg/dL LAB CHEMISTRY METHOD 07/16/2024 8:40 AM [facility] eGFR 8(L) >=60 mL/min/1. 73m2 LAB CHEMISTRY METHOD 07/16/2024 8:40 AM [facility] Comment:Calculation based on the??Chronic Kidney Disease Epidemiology Collaboration (CKD-EPI) equation refit??without adjustment for race. BUN/Creatinine Ratio 14.3 LAB CHEMISTRY METHOD 07/16/2024 8:40 AM [facility] Calcium 8.0(L) 8.5 - 10.5 mg/dL LAB CHEMISTRY METHOD 07/16/2024 8:40 AM [facility] Blood Venous blood specimen / Unknown Venipuncture / Unknown 07/16/2024 6:45 AM EST 07/16/2024 6:58 AM EST us Kwesi Guido MD LAB BLOOD ORDERABLES F inal Result [facility] [address] [place] [address], * (ABNORMAL) Complete blood count (07/16/2024 6:45 AM EST) [facility] WBC 27.6(H) 4.8 - 10.8 K/mcL LAB HEMETOLOGY METHOD 07/16/2024 7:16 AM [facility] RBC 3.40(L) 3.80 - 4.80 M/mcL LAB HEMETOLOGY METHOD 07/16/2024 7:16 AM [facility] Hemoglobin 8.4(L) 11.5 - 16.0 g/dL LAB HEMETOLOGY METHOD 07/16/2024 7:16 AM [facility] Hematocrit 25.9(L) 35.0 - 47.0 % LAB HEMETOLOGY METHOD 07/16/2024 7:16 AM [facility] MCV 76.2(L) 79.0 - 98.0 FL LAB HEMETOLOGY METHOD 07/16/2024 7:16 AM [facility] MCH 24.7(L) 27.0 - 32.0 pcg LAB HEMETOLOGY METHOD 07/16/2024 7:16 AM [facility] MCHC 32.4 32.0 - 37.0 g/dL LAB HEMETOLOGY METHOD 07/16/2024 7:16 AM [facility] RDW 23.1(H) 11.0 - 15.0 % LAB HEMETOLOGY METHOD 07/16/2024 7:16 AM [facility] Platelets 258 130 - 400 K/mcL LAB HEMETOLOGY METHOD 07/16/2024 7:16 AM [facility] MPV 9.9 7.0 - 11.0 FL LAB HEMETOLOGY METHOD 07/16/2024 7:16 AM [facility] NRBC 0.0 <1.0 % LAB HEMETOLOGY METHOD 07/16/2024 7:16 AM [facility] NRBC Absolute 0.00 <0.10 K/[facility] LAB HEMETOLOGY METHOD 07/16/2024 7:16 AM EST [facility] Blood Venous blood specimen / Unknown Venipuncture / Unknown 07/16/2024 6:45 AM EST 07/16/2024 6:58 AM EST us Kwesi Guido MD LAB BLOOD ORDERABLES F inal Result [facility] [address] [place] [address], [place] [phone] * POCT Glucose, blood (07/15/2024 8:26 PM EST) Glucose POCT 93 70 - 100 mg/dL 07/15/2024 8:26 PM EST [facility] Blood Capillary blood specimen / Unknown 07/15/2024 8:26 PM EST 07/15/2024 8:27 PM EST us Kwesi Guido MD LAB POINT OF C ARE TEST DOCKED DEVICE UNSOLICITED RESULTS Final Result Performing Organization Address City/[facility]/ZIP Co de Phone Number [facility] [address] [place] [address], [place] [phone] * POCT Glucose, blood (07/15/2024 4:30 PM EST) Glucose POCT 92 70 - 100 mg/dL 07/15/2024 4:31 PM EST [facility] Blood Capillary blood specimen / Unknown 07/15/2024 4:30 PM EST 07/15/2024 4:33 PM EST us Kwesi Guido MD LAB POINT OF C ARE TEST DOCKED DEVICE UNSOLICITED RESULTS Final Result [facility] [address] [place] [address], * IR Insert Tunneled CVC wo Port or Pump More 5yrs Left (07/15/2024 3:36 PM EST) Anatomical Region Laterality Modality Left Interventional R adiology 07/15/2024 3:45 PM EST Impressions 07/15/2024 3:47 PM EST Successful placement of a 14 Ukrainian 23 cm dual-lumen cuffed tunneled dialysis catheter with the tip at the cavoatrial junction. This line may be used immediately. -------- FINAL REPORT -------- Dictated By: Fela Palomo Dictated Date: 07/15/2024 15:45 ET Assigned Physician: Fela Palomo Reviewed and Electronically Signed By: Fela Palomo Signed Date: 07/15/2024 15:47 ET Workstation ID: [id number] Transcribed By: Self Edit Transcribed Date: 07/15/2024 [...] The needle was exchanged for the 4 Ukrainian transition sheath. A 0.035 wire was then advanced through ??the sheath and into the inferior vena cava under fluoroscopy. The sheath was then exchanged for a 7 Ukrainian vascular dilator. Attention was then turned to the right upper chest and the appropriate area was anesthetized with 2% lidocaine. A small dermatotomy was performed and then a tunnel was created from the dermatotomy to the initial venous access site. The catheter was advanced through the tunnel. ??The initial venous access site was then serially dilated up to a 15 Ukrainian peel-away sheath. The catheter was then advanced [...] The needle was exchanged for the 4 Ukrainian transition sheath. A 0.035wire was then advanced through the sheath and into the inferior vena cavaunder fluoroscopy. The sheath was then exchanged for a 7 Ukrainian vasculardilator. Attention was then turned to the right upper chest and the appropriatearea was anesthetized with 2% lidocaine. A small dermatotomy was performedand then a tunnel was created from the dermatotomy to the initial venousaccess site. The catheter was advanced through the tunnel. The initialvenous access site was then serially dilated up to a 15 Ukrainian peel-awaysheath. The catheter was then advanced through [...] mGy IMPRESSION: Successful placement of a 14 Ukrainian 23 cm dual-lumen cuffed tunneleddialysis catheter with the tip at the cavoatrial junction. This line maybe used immediately. -------- FINAL REPORT -------- Dictated By: Fela Palomo Dictated Date: 07/15/2024 15:45 ET Assigned Physician: Fela Palomo Reviewed and Electronically Signed By: Fela Palomo Signed Date: 07/15/2024 15:47 ET Workstation ID: [id number] Transcribed By: Self Edit Transcribed Date: 07/15/2024 [...] TEST DOCKED DEVICE UNSOLICITED RESULTS Final Result [facility] [address] [place] [address], [place] [phone] * (ABNORMAL) Basic metabolic panel (07/15/2024 8:56 AM EST) Sodium 132(L) 133 - 145 mmol/L LAB CHEMISTRY METHOD 07/15/2024 10:15 AM [facility] Potassium 3.8 3.5 - 5.5 mmol/L LAB CHEMISTRY METHOD 07/15/2024 10:15 AM [facility] Chloride 104 96 - 110 mmol/L LAB CHEMISTRY METHOD 07/15/2024 10:15 AM [facility] CO2 16(L) 21 - 32 mmol/L LAB CHEMISTRY METHOD 07/15/2024 10:15 AM [facility] Anion Gap 12(H) 3 - 11 LAB CHEMISTRY METHOD 07/15/2024 10:15 AM [facility] Glucose 80 70 - 100 mg/dL LAB CHEMISTRY METHOD 07/15/2024 10:15 AM [facility] BUN 97(H) 5 - 25 mg/dL LAB CHEMISTRY METHOD 07/15/2024 10:15 AM [facility] Creatinine 6.70(H) 0.50 - 1.10 mg/dL LAB CHEMISTRY METHOD 07/15/2024 10:15 AM [facility] eGFR 6(L) >=60 mL/min/1. 73m2 LAB CHEMISTRY METHOD 07/15/2024 10:15 AM [facility] Comment:Calculation based on the??Chronic Kidney Disease Epidemiology Collaboration (CKD-EPI) equation refit??without adjustment for race. BUN/Creatinine Ratio 14.5 LAB CHEMISTRY METHOD 07/15/2024 10:15 AM [facility] Calcium 8.4(L) 8.5 - 10.5 mg/dL LAB CHEMISTRY METHOD 07/15/2024 10:15 AM [facility] Blood Venous blood specimen / Unknown Venipuncture / Unknown 07/15/2024 8:56 AM EST 07/15/2024 9:43 AM EST us Kwesi Guido MD LAB BLOOD ORDERABLES F inal Result [facility] [address] [place] [address], [place] [phone] * Hepatitis B surface antigen with reflex to confirmation (07/15/2024 8:56 AM EST) Pathologist [facility] Hepatitis B Surface Ag Negative Negative [...] inal Result [facility] [address] [place] [address], [place] [phone] * Hepatitis B surface antibody quantitative (07/15/2024 8:56 AM EST) [facility] Hepatitis B Surface Ab Negative Negative LAB [...] inal Result [facility] [address] [place] [address], * (ABNORMAL) Renal function panel (07/15/2024 8:56 AM EST) Sodium 132(L) 133 - 145 mmol/L LAB CHEMISTRY METHOD 07/15/2024 10:26 AM [facility] Potassium 3.8 3.5 - 5.5 mmol/L LAB CHEMISTRY METHOD 07/15/2024 10:26 AM [facility] Chloride 104 96 - 110 mmol/L LAB CHEMISTRY METHOD 07/15/2024 10:26 AM [facility] CO2 16(L) 21 - 32 mmol/L LAB CHEMISTRY METHOD 07/15/2024 10:26 AM [facility] Anion Gap 12(H) 3 - 11 LAB CHEMISTRY METHOD 07/15/2024 10:26 AM [facility] Glucose 80 70 - 100 mg/dL LAB CHEMISTRY METHOD 07/15/2024 10:26 AM [facility] BUN 97(H) 5 - 25 mg/dL LAB CHEMISTRY METHOD 07/15/2024 10:26 AM [facility] Creatinine 6.70(H) 0.50 - 1.10 mg/dL LAB CHEMISTRY METHOD 07/15/2024 10:26 AM [facility] eGFR 6(L) >=60 mL/min/1. 73m2 LAB CHEMISTRY METHOD 07/15/2024 10:26 AM [facility] Comment:Calculation based on the??Chronic Kidney Disease Epidemiology Collaboration (CKD-EPI) equation refit??without adjustment for race. BUN/Creatinine Ratio 14.5 LAB CHEMISTRY METHOD 07/15/2024 10:26 AM [facility] Albumin 3.3 3.2 - 5.0 g/dL LAB CHEMISTRY METHOD 07/15/2024 10:26 AM [facility] Comment:Results verified by repeat testing Calcium 8.4(L) 8.5 - 10.5 mg/dL LAB CHEMISTRY METHOD 07/15/2024 10:26 AM [facility] Phosphorus 4.2 2.5 - 4.5 mg/dL LAB CHEMISTRY METHOD 07/15/2024 10:26 AM [facility] Blood Venous blood specimen / Unknown Venipuncture / Unknown 07/15/2024 8:56 AM EST 07/15/2024 9:43 AM EST Chencho Wayne MD LAB BLOOD ORDERABLES Final Resu lt [facility] [address] [place] [address], [place] [phone] * POCT Glucose, blood (07/15/2024 8:03 AM EST) Glucose POCT 96 70 - 100 mg/dL 07/15/2024 8:05 AM [facility] Blood Capillary blood specimen / Unknown 07/15/2024 8:03 AM EST 07/15/2024 8:06 AM EST Kwesi Guido MD LAB POINT OF C ARE TEST DOCKED DEVICE UNSOLICITED RESULTS Final Result [facility] [address] [place] [address], [place] [phone] * (ABNORMAL) RBC morphology review (07/15/2024 6:56 AM EST) Rbc Morphology Present( A) Consistent with indices, Normal for [place] LAB HEMETOLOGY METHOD 07/15/2024 8:54 AM EST [facility] Platelet Morphology - WAM See Note(A) Normal LAB HEMETOLOGY METHOD 07/15/2024 8:54 AM EST [facility] Comment:PLT: Normal Polychromasia Present Present( A) (none) LAB HEMETOLOGY METHOD 07/15/2024 8:54 AM EST [facility] Pappenheimer Bodies Present Present( A) (none) LAB HEMETOLOGY METHOD 07/15/2024 8:54 AM [facility] Schistocytes Present < 5%(A) (none) LAB HEMETOLOGY METHOD 07/15/2024 8:54 AM [facility] Blood Venous blood specimen / Unknown Venipuncture / Unknown 07/15/2024 6:56 AM EST 07/15/2024 7:52 AM EST Kwesi Guido MD LAB BLOOD ORDERABLES F inal Result [facility] [address] [place] [address], * (ABNORMAL) CBC auto differential (07/15/2024 6:56 AM EST) WBC 23.7(H) 4.8 - 10.8 K/mcL LAB HEMETOLOGY METHOD 07/15/2024 8:54 AM [facility] RBC 3.10(L) 3.80 - 4.80 M/mcL LAB HEMETOLOGY METHOD 07/15/2024 8:54 AM [facility] Hemoglobin 7.5(L) 11.5 - 16.0 g/dL LAB HEMETOLOGY METHOD 07/15/2024 8:54 AM [facility] Hematocrit 23.6(L) 35.0 - 47.0 % LAB HEMETOLOGY METHOD 07/15/2024 8:54 AM [facility] MCV 75.9(L) 79.0 - 98.0 FL LAB HEMETOLOGY METHOD 07/15/2024 8:54 AM [facility] MCH 24.1(L) 27.0 - 32.0 pcg LAB HEMETOLOGY METHOD 07/15/2024 8:54 AM [facility] MCHC 31.8(L) 32.0 - 37.0 g/dL LAB HEMETOLOGY METHOD 07/15/2024 8:54 AM [facility] RDW 22.7(H) 11.0 - 15.0 % LAB HEMETOLOGY METHOD 07/15/2024 8:54 AM [facility] Platelets 246 130 - 400 K/mcL LAB HEMETOLOGY METHOD 07/15/2024 8:54 AM [facility] MPV 10.3 7.0 - 11.0 FL LAB HEMETOLOGY METHOD 07/15/2024 8:54 AM [facility] NRBC 0.0 <1.0 % LAB HEMETOLOGY METHOD 07/15/2024 8:54 AM [facility] NRBC Absolute 0.00 <0.10 K/mcL LAB HEMETOLOGY METHOD 07/15/2024 8:54 AM [facility] Neutrophils Relative 87.4 % LAB HEMETOLOGY METHOD 07/15/2024 8:54 AM [facility] Comment:This is an appended report. These results have been appended to a previously preliminary verified report. Lymphocytes Relative 3.5 % LAB HEMETOLOGY METHOD 07/15/2024 8:54 AM [facility] Comment:This is an appended report. These results have been appended to a previously preliminary verified report. Monocytes Relative 4.8 % LAB HEMETOLOGY METHOD 07/15/2024 8:54 AM [facility] Comment:This is an appended report. These results have been appended to a previously preliminary verified report. Eosinophils Relative 1.7 % LAB HEMETOLOGY METHOD 07/15/2024 8:54 AM [facility] Comment:This is an appended report. These results have been appended to a previously preliminary verified report. Basophils Relative 0.2 % LAB HEMETOLOGY METHOD 07/15/2024 8:54 AM [facility] Comment:This is an appended report. These results have been appended to a previously preliminary verified report. Immature Granulocytes Relative 2.4 % LAB HEMETOLOGY METHOD 07/15/2024 8:54 AM [facility] Comment:This is an appended report. These results have been appended to a previously preliminary verified report. Neutrophils Absolute 20.75(H) 1.50 - 7.00 K/mcL LAB [facility] 07/15/2024 8:54 AM [facility] Comment:This is an appended report. These results have been appended to a previously preliminary verified report. Lymphocytes Absolute 0.84(L) 1.00 - 5.00 K/mcL LAB HEMETOLOGY METHOD 07/15/2024 8:54 AM [facility] Comment:This is an appended report. These results have been appended to a previously preliminary verified report. Monocytes Absolute 1.13(H) 0.20 - 1.00 K/mcL LAB HEMETOLOGY METHOD 07/15/2024 8:54 AM [facility] Comment:This is an appended report. These results have been appended to a previously preliminary verified report. Eosinophils Absolute 0.41 0.00 - 0.50 K/mcL LAB HEMETOLOGY METHOD 07/15/2024 8:54 AM [facility] Comment:This is an appended report. These results have been appended to a previously preliminary verified report. Basophils Absolute 0.05 0.00 - 0.20 K/mcL LAB HEMETOLOGY METHOD 07/15/2024 8:54 AM [facility] [...] ORDERABLES F inal Result Performing Organization Address City/[facility]/ZIP Co de Phone Number [facility] [address] [place] [address], [place] [phone] * (ABNORMAL) Prothrombin time with INR (07/15/2024 [...] inal Result [facility] [address] [place] [address], [place] [phone] * Magnesium (07/15/2024 6:56 AM EST) Magnesium 2.2 1.9 - 2.6 mg/dL LAB CHEMISTRY METHOD 07/15/2024 8:48 AM EST [facility] Blood Venous blood specimen / Unknown Venipuncture / Unknown 07/15/2024 6:56 AM EST 07/15/2024 7:52 AM EST Kwesi Guido MD LAB BLOOD ORDERABLES F inal Result [facility] [address] [place] [address], [place] [phone] * (ABNORMAL) Basic metabolic panel (07/15/2024 6:56 AM EST) Pathologist [facility] Sodium 134 133 - 145 mmol/L LAB CHEMISTRY METHOD 07/15/2024 8:58 AM [facility] Potassium 3.8 3.5 - 5.5 mmol/L LAB CHEMISTRY METHOD 07/15/2024 8:58 AM [facility] Chloride 104 96 - 110 mmol/L LAB CHEMISTRY METHOD 07/15/2024 8:58 AM [facility] CO2 15(L) 21 - 32 mmol/L LAB CHEMISTRY METHOD 07/15/2024 8:58 AM [facility] Anion Gap 15(H) 3 - 11 LAB CHEMISTRY METHOD 07/15/2024 8:58 AM [facility] Glucose 82 70 - 100 mg/dL LAB CHEMISTRY METHOD 07/15/2024 8:58 AM [facility] BUN 95(H) 5 - 25 mg/dL LAB CHEMISTRY METHOD 07/15/2024 8:58 AM [facility] Creatinine 6.68(H) 0.50 - 1.10 mg/dL LAB CHEMISTRY METHOD 07/15/2024 8:58 AM [facility] eGFR 6(L) >=60 mL/min/1. 73m2 LAB CHEMISTRY METHOD 07/15/2024 8:58 AM [facility] [...] inal Result [facility] [address] [place] [address], [place] [phone] * (ABNORMAL) POCT Glucose, blood (07/14/2024 8:07 PM EST) Glucose POCT 122(H) 70 - 100 mg/dL 07/14/2024 8:07 PM EST [facility] Blood Capillary blood specimen / Unknown 07/14/2024 8:07 PM EST 07/14/2024 8:09 PM EST us Kwesi Guido MD LAB POINT OF C ARE TEST DOCKED DEVICE UNSOLICITED RESULTS Final Result [facility] [address] [place] [address], [place] [phone] * (ABNORMAL) POCT Glucose, blood (07/14/2024 4:26 PM EST) Glucose POCT 152(H) 70 - 100 mg/dL 07/14/2024 4:27 PM EST [facility] Blood Capillary blood specimen / Unknown 07/14/2024 4:26 PM EST 07/14/2024 4:28 PM EST us Kwesi Guido MD LAB POINT OF ARE TEST DOCKED DEVICE UNSOLICITED RESULTS Final Result [facility] [address] [place] [address], [place] [phone] * POCT Glucose, blood (07/14/2024 11:32 AM EST) Glucose POCT 100 70 - 100 mg/dL 07/14/2024 11:37 AM EST [facility] Blood Capillary blood specimen / Unknown 07/14/2024 11:32 AM EST 07/14/2024 11:38 AM EST us Kwesi Guido MD LAB POINT OF ARE TEST DOCKED DEVICE UNSOLICITED RESULTS Final Result Performing Organization Address [facility]/ZIP Co de Phone Number [facility] [address] [place] [address], [place] [phone] * POCT Glucose, blood (07/14/2024 8:19 AM EST) Glucose POCT 72 70 - 100 mg/dL 07/14/2024 8:38 AM EST [facility] Blood Capillary blood specimen / Unknown 07/14/2024 8:19 AM EST 07/14/2024 8:39 AM EST us Kwesi Guido MD LAB POINT OF ARE TEST DOCKED DEVICE UNSOLICITED RESULTS Final Result [facility] [address] [place] [address], [place] [phone] * Extractable Nuclear Antibodies Profile (07/14/2024 6:00 AM EST) SM Ab Negative Negative LAB CHEMISTRY METHOD 07/17/2024 12:29 PM EST [facility] SM Antibody Quant 2 <20 units LAB CHEMISTRY METHOD 07/17/2024 12:29 PM EST [facility] [employer] Ab Negative Negative LAB CHEMISTRY METHOD 07/17/2024 12:29 PM EST [facility] [employer] Antibody Quant 1 <20 units LAB CHEMISTRY METHOD 07/17/2024 12:29 PM EST [facility] Blood Venous blood specimen / Unknown 07/14/2024 6:00 AM EST 07/14/2024 6:35 AM EST us Kwesi Guido MD LAB BLOOD ORDERABLES F inal Result [facility] [address] [place] [address], [place] [phone] * C4 complement (07/14/2024 6:00 AM EST) C4 Complement 18 16 - 47 mg/dL LAB CHEMISTRY METHOD 07/14/2024 11:20 AM EST [facility] Blood Venous blood specimen / Unknown 07/14/2024 6:00 AM EST 07/14/2024 6:35 AM EST us Kwesi Guido MD LAB BLOOD ORDERABLES F inal Result [facility] [address] [place] [address], [place] [phone] * (ABNORMAL) C3 complement (07/14/2024 6:00 AM EST) C3 Complement 78(L) 88 - 201 mg/dL LAB CHEMISTRY METHOD 07/14/2024 11:20 AM EST [facility] Blood Venous blood specimen / Unknown 07/14/2024 6:00 AM EST 07/14/2024 6:35 AM EST us Kwesi Guido MD LAB BLOOD ORDERABLES F inal Result [facility] [address] [place] [address], [place] [phone] * (ABNORMAL) Anti-neutrophilic cytoplasmic antibody (07/14/2024 6:00 AM EST) Pathologist [facility] Myeloperoxidase Ab Negative Negative LAB CHEMISTRY [...] inal Result [facility] [address] [place] [address], [place] [phone] * (ABNORMAL) CBC auto differential (07/14/2024 6:00 AM EST) [facility] WBC 19.8(H) 4.8 - 10.8 K/[facility] LAB HEMETOLOGY METHOD 07/14/2024 6:56 AM EST [facility] RBC 2.90(L) 3.80 - 4.80 M/[facility] LAB HEMETOLOGY METHOD 07/14/2024 6:56 AM EST [facility] Hemoglobin 7.0(L) 11.5 - 16.0 g/dL LAB HEMETOLOGY METHOD 07/14/2024 6:56 AM [facility] Hematocrit 21.8(L) 35.0 - 47.0 % LAB HEMETOLOGY METHOD 07/14/2024 6:56 AM [facility] MCV 75.7(L) 79.0 - 98.0 FL LAB HEMETOLOGY METHOD 07/14/2024 6:56 AM [facility] MCH 24.3(L) 27.0 - 32.0 pcg LAB HEMETOLOGY METHOD 07/14/2024 6:56 AM [facility] MCHC 32.1 32.0 - 37.0 g/dL LAB HEMETOLOGY METHOD 07/14/2024 6:56 AM [facility] RDW 21.6(H) 11.0 - 15.0 % LAB HEMETOLOGY METHOD 07/14/2024 6:56 AM [facility] Platelets 193 130 - 400 K/mcL LAB HEMETOLOGY METHOD 07/14/2024 6:56 AM [facility] MPV 9.9 7.0 - 11.0 FL LAB HEMETOLOGY METHOD 07/14/2024 6:56 AM [facility] NRBC 0.0 <1.0 % LAB HEMETOLOGY METHOD 07/14/2024 6:56 AM [facility] NRBC Absolute 0.00 <0.10 K/mcL LAB HEMETOLOGY METHOD 07/14/2024 6:56 AM [facility] Neutrophils Relative 85.1 % LAB HEMETOLOGY METHOD 07/14/2024 6:56 AM [facility] Lymphocytes Relative 3.7 % LAB HEMETOLOGY METHOD 07/14/2024 6:56 AM [facility] Monocytes Relative 6.1 % LAB HEMETOLOGY METHOD 07/14/2024 6:56 AM [facility] Eosinophils Relative 2.5 % [...] K/mcL LAB HEMETOLOGY METHOD 07/14/2024 6:56 AM [facility] Eosinophils Absolute 0.50 0.00 [...] inal Result [facility] [address] [place] [address], * Magnesium (07/14/2024 6:00 AM EST) Magnesium 2.0 1.9 - 2.6 mg/dL LAB CHEMISTRY METHOD 07/14/2024 7:23 AM [facility] Blood Venous blood specimen / Unknown 07/14/2024 6:00 AM EST 07/14/2024 6:35 AM EST us Kwesi Guido MD LAB BLOOD ORDERABLES F inal Result [facility] [address] [place] [address], * (ABNORMAL) Basic metabolic panel (07/14/2024 6:00 AM EST) [facility] Sodium 132(L) 133 - 145 mmol/L LAB CHEMISTRY METHOD 07/14/2024 7:38 AM [facility] Potassium 3.4(L) 3.5 - 5.5 mmol/L LAB CHEMISTRY METHOD 07/14/2024 7:38 AM [facility] Chloride 104 96 - 110 mmol/L LAB CHEMISTRY METHOD 07/14/2024 7:38 AM [facility] CO2 18(L) 21 - 32 mmol/L LAB CHEMISTRY METHOD 07/14/2024 7:38 AM [facility] Anion Gap 10 3 - 11 LAB CHEMISTRY METHOD 07/14/2024 7:38 AM [facility] Glucose 69(L) 70 - 100 mg/dL LAB CHEMISTRY METHOD 07/14/2024 7:38 AM [facility] BUN 84(H) 5 - 25 mg/dL LAB CHEMISTRY METHOD 07/14/2024 7:38 AM [facility] Creatinine 5.84(H) 0.50 - 1.10 mg/dL LAB CHEMISTRY METHOD 07/14/2024 7:38 AM [facility] eGFR 7(L) >=60 mL/min/1. 73m2 LAB CHEMISTRY METHOD 07/14/2024 7:38 AM EST [facility] Comment:Calculation based on the??Chronic Kidney Disease Epidemiology Collaboration (CKD-EPI) equation refit??without adjustment for race. BUN/Creatinine Ratio 14.4 LAB CHEMISTRY METHOD 07/14/2024 7:38 AM [facility] Calcium 8.2(L) 8.5 - 10.5 mg/dL LAB CHEMISTRY METHOD 07/14/2024 7:38 AM [facility] Blood Venous blood specimen / Unknown 07/14/2024 6:00 AM EST 07/14/2024 6:35 AM EST us Kwesi Guido MD LAB BLOOD ORDERABLES F inal Result Performing Organization Address [facility]/ZIP Co de Phone Number [facility] LAB [address] [place] [address], [place] [phone] * (ABNORMAL) POCT Glucose, blood (07/13/2024 8:53 PM EST) [facility] Signature Glucose POCT 153(H) 70 - 100 mg/dL 07/13/2024 8:55 PM EST [facility] Blood Capillary blood specimen / Unknown 07/13/2024 8:53 PM EST 07/13/2024 8:56 PM EST us Kwesi Guido MD LAB POINT OF C ARE TEST DOCKED DEVICE UNSOLICITED RESULTS Final Result [facility] [address] [place] [address], [place] [phone] * Transfuse RBC (07/13/2024 7:03 PM EST) us Kwesi Guido MD BLOOD TRANSFUSION ORDIsidoro MARI Final Result * Transfuse RBC: 1 Units (07/13/2024 7:03 PM EST) us Kwesi Guido MD BLOOD TRANSFUSION ANNALISA MARI Final Result * (ABNORMAL) POCT Glucose, blood (07/13/2024 3:53 PM EST) [facility] Signature Glucose POCT 115(H) 70 - 100 mg/dL 07/13/2024 3:56 PM EST [facility] Blood Capillary blood specimen / Unknown 07/13/2024 3:53 PM EST 07/13/2024 3:57 PM EST us Kwesi Guido MD LAB POINT OF ARE TEST DOCKED DEVICE UNSOLICITED RESULTS Final Result Performing Organization Address City/[facility]/ZIP Co de Phone Number [facility] [address] [place] [address], [place] [phone] * (ABNORMAL) POCT Glucose, blood (07/13/2024 10:58 AM EST) [facility] Glucose POCT 106(H) 70 - 100 mg/dL 07/13/2024 10:58 AM EST [facility] Blood Capillary blood specimen / Unknown 07/13/2024 10:58 AM EST 07/13/2024 10:59 AM EST us Kwesi Guido MD LAB POINT OF C ARE TEST DOCKED DEVICE UNSOLICITED RESULTS Final Result [facility] [address] [place] [address], [place] [phone] * Prepare RBC: 1 Units (07/13/2024 10:44 AM EST) [facility] Product Code [id number] 07/13/2024 12:34 PM EST [facility] Unit Number [id number] 07/13/19 12:34 PM EST [facility] Crossmatch Compatible 07/13/2024 11:06 AM [facility] Dispense Status Transfused 07/13/2024 12:34 PM [facility] LAB Unit ABO Rh OPOS 07/13/2024 12:34 PM [facility] LAB Unit Expiration Date Time 07/13/2024 12:34 PM [facility] Unit Blood Type 5100 07/13/2024 12:34 PM [facility] Blood Venous blood specimen / Unknown 07/13/2024 10:44 AM EST 07/13/2024 8:32 AM EST us Kwesi Guido MD BLOOD BANK PRODUCT ORD ERABLES Final Result Performing Organization Address City/[facility]/ZIP Co de Phone Number [facility] [address] [place] [address], [place] [phone] * Type and screen (07/13/2024 8:24 AM EST) ABO Group O 07/13/2024 10:29 AM [facility] Rh Type Positive 07/13/2024 10:29 AM [facility] LAB Antibody Screen Negative 07/13/2024 10:29 AM [facility] LAB Blood Venous blood specimen / Unknown Venipuncture / Unknown 07/13/2024 8:24 AM EST 07/13/2024 8:32 AM EST us Kwesi Guido MD LAB BLOOD BANK TEST OR DERABLES Final Result [facility] [address] [place] [address], [place] [phone] * POCT Glucose, blood (07/13/2024 8:13 AM EST) Glucose POCT 87 70 - 100 mg/dL 07/13/2024 8:20 AM [facility] LAB Blood Capillary blood specimen / Unknown 07/13/2024 8:13 AM EST 07/13/2024 8:21 AM EST us Kwesi Guido MD LAB POINT OF C ARE TEST DOCKED DEVICE UNSOLICITED RESULTS Final Result [facility] [address] [place] [address], * (ABNORMAL) CBC auto differential (07/13/2024 6:38 AM EST) [facility] WBC 20.6(H) 4.8 - 10.8 K/mcL LAB HEMETOLOGY METHOD 07/13/2024 7:14 AM [facility] RBC 2.70(L) 3.80 - 4.80 M/mcL LAB HEMETOLOGY METHOD 07/13/2024 7:14 AM [facility] LAB Hemoglobin 6.5(L) 11.5 - 16.0 g/dL LAB HEMETOLOGY METHOD 07/13/2024 7:14 AM [facility] LAB Hematocrit 20.3(L) 35.0 - 47.0 % LAB HEMETOLOGY METHOD 07/13/2024 7:14 AM [facility] LAB MCV 74.4(L) 79.0 - 98.0 FL LAB HEMETOLOGY METHOD 07/13/2024 7:14 AM [facility] LAB MCH 23.8(L) 27.0 - 32.0 pcg LAB HEMETOLOGY METHOD 07/13/2024 7:14 AM [facility] LAB MCHC 32.0 32.0 - 37.0 g/dL LAB HEMETOLOGY METHOD 07/13/2024 7:14 AM [facility] LAB RDW 21.4(H) 11.0 - 15.0 % LAB HEMETOLOGY METHOD 07/13/2024 7:14 AM [facility] LAB Platelets 199 130 - 400 K/mcL LAB HEMETOLOGY METHOD 07/13/2024 7:14 AM [facility] LAB MPV 9.9 7.0 - 11.0 FL LAB HEMETOLOGY METHOD 07/13/2024 7:14 AM [facility] LAB NRBC 0.0 <1.0 % LAB HEMETOLOGY METHOD 07/13/2024 7:14 AM [facility] LAB NRBC Absolute 0.00 <0.10 K/mcL LAB HEMETOLOGY METHOD 07/13/2024 7:14 AM [facility] LAB Neutrophils Relative 84.4 % LAB HEMETOLOGY METHOD 07/13/2024 7:14 AM [facility] LAB Lymphocytes Relative 3.9 % LAB HEMETOLOGY METHOD 07/13/2024 7:14 AM [facility] LAB Monocytes Relative 6.3 % LAB HEMETOLOGY METHOD 07/13/2024 7:14 AM [facility] LAB Eosinophils Relative 3.3 % LAB HEMETOLOGY METHOD 07/13/2024 7:14 AM [facility] LAB Basophils Relative 0.1 % LAB HEMETOLOGY METHOD 07/13/2024 7:14 AM [facility] LAB Immature Granulocytes Relative 2.0 % LAB HEMETOLOGY METHOD 07/13/2024 7:14 AM [facility] LAB Neutrophils Absolute 17.36(H) 1.50 - 7.00 K/mcL LAB HEMETOLOGY METHOD 07/13/2024 7:14 AM [facility] LAB Lymphocytes Absolute 0.81(L) 1.00 - 5.00 K/mcL LAB HEMETOLOGY METHOD 07/13/2024 7:14 AM [facility] LAB Monocytes Absolute 1.30(H) 0.20 - 1.00 K/mcL LAB HEMETOLOGY METHOD 07/13/2024 7:14 AM EST [facility] Eosinophils Absolute 0.67(H) 0.00 - 0.50 K/[facility] LAB HEMETOLOGY METHOD 07/13/2024 7:14 AM EST [facility] Basophils Absolute 0.03 0.00 - 0.20 K/[facility] LAB HEMETOLOGY METHOD 07/13/2024 7:14 AM EST [facility] Immature Granulocytes Absolute 0.41(H) 0.00 - 0.03 K/[facility] LAB HEMETOLOGY METHOD 07/13/2024 7:14 AM [facility] LAB Blood Venous blood specimen / Unknown Venipuncture / Unknown 07/13/2024 6:38 AM EST 07/13/2024 6:51 AM EST us Kwesi Guido MD LAB BLOOD ORDERABLES F inal Result Performing Organization Address City/[facility]/ZIP Co de Phone Number [facility] [address] [place] [address], [place] [phone] * Phosphorus (07/13/2024 6:38 AM EST) Phosphorus 3.0 2.5 - 4.5 mg/dL LAB CHEMISTRY METHOD 07/13/2024 7:44 AM EST [facility] Blood Venous blood specimen / Unknown Venipuncture / Unknown 07/13/2024 6:38 AM EST 07/13/2024 6:50 AM EST us Kwesi Guido MD LAB BLOOD ORDERABLES F inal Result [facility] [address] [place] [address], [place] [phone] * Magnesium (07/13/2024 6:38 AM EST) [facility] Magnesium 1.9 1.9 - 2.6 mg/dL LAB CHEMISTRY METHOD 07/13/2024 7:44 AM [facility] LAB Blood Venous blood specimen / Unknown Venipuncture / Unknown 07/13/2024 6:38 AM EST 07/13/2024 6:50 AM EST Kwesi Guido MD LAB BLOOD ORDERABLES F inal Result [facility] [address] [place] [address], * (ABNORMAL) Basic metabolic panel (07/13/2024 6:38 AM EST) [facility] Sodium 132(L) 133 - 145 mmol/L LAB CHEMISTRY METHOD 07/13/2024 7:57 AM [facility] LAB Potassium 3.6 3.5 - 5.5 mmol/L LAB CHEMISTRY METHOD 07/13/2024 7:57 AM [facility] LAB Chloride 104 96 - 110 mmol/L LAB CHEMISTRY METHOD 07/13/2024 7:57 AM [facility] LAB CO2 18(L) 21 - 32 mmol/L LAB CHEMISTRY METHOD 07/13/2024 7:57 AM [facility] LAB Anion Gap 10 3 - 11 LAB CHEMISTRY METHOD 07/13/2024 7:57 AM [facility] LAB Glucose 71 70 - 100 mg/dL LAB CHEMISTRY METHOD 07/13/2024 7:57 AM [facility] BUN 73(H) 5 - 25 mg/dL LAB CHEMISTRY METHOD 07/13/2024 7:57 AM [facility] LAB Creatinine 5.13(H) 0.50 - 1.10 mg/dL LAB CHEMISTRY METHOD 07/13/2024 7:57 AM [facility] LAB eGFR 8(L) >=60 mL/min/1. 73m2 LAB CHEMISTRY METHOD 07/13/2024 7:57 AM EST [facility] LAB Comment:Calculation based on the??Chronic Kidney Disease Epidemiology Collaboration (CKD-EPI) equation refit??without adjustment for race. BUN/Creatinine Ratio 14.2 LAB CHEMISTRY METHOD 07/13/2024 7:57 AM [facility] LAB Calcium 8.1(L) 8.5 - 10.5 mg/dL LAB CHEMISTRY METHOD 07/13/2024 7:57 AM [facility] LAB Blood Venous blood specimen / Unknown Venipuncture / Unknown 07/13/2024 6:38 AM EST 07/13/2024 6:50 AM EST Kwesi Guiod MD LAB BLOOD ORDERABLES F inal Result Performing Organization Address City/[facility]/ZIP Co de Phone Number [facility] [address] [place] [address], * Uric acid (07/13/2024 6:38 AM EST) Uric Acid 7.5 3.1 - 7.8 mg/dL LAB CHEMISTRY METHOD 07/13/2024 7:44 AM EST [facility] Blood Venous blood specimen / Unknown Venipuncture / Unknown 07/13/2024 6:38 AM EST 07/13/2024 6:50 AM EST Chencho Wayne MD LAB BLOOD ORDERABLES Final Resu lt [facility] [address] [place] [address], * (ABNORMAL) Sedimentation rate (07/13/2024 6:38 AM EST) Sed Rate 84(H) 0 - 30 mm/hr LAB HEMETOLOGY METHOD 07/13/2024 7:32 AM EST [facility] Blood Venous blood specimen / Unknown Venipuncture / Unknown 07/13/2024 6:38 AM EST 07/13/2024 6:51 AM EST us Kwesi Guido MD LAB BLOOD ORDERABLES F inal Result Performing Organization Address [facility]/ZIP Co de Phone Number [facility] [address] [place] [address], [place] [phone] * (ABNORMAL) POCT Glucose, blood (07/12/2024 8:06 PM EST) Glucose POCT 125(H) 70 - 100 mg/dL 07/12/2024 8:08 PM EST [facility] Blood Capillary blood specimen / Unknown 07/12/2024 8:06 PM EST 07/12/2024 8:09 PM EST us Kwesi Guido MD LAB POINT OF C ARE TEST DOCKED DEVICE UNSOLICITED RESULTS Final Result Performing Organization Address [facility]/ZIP Co de Phone Number [facility] [address] [place] [address], [place] [phone] * (ABNORMAL) POCT Glucose, blood (07/12/2024 3:53 PM EST) Glucose POCT 143(H) 70 - 100 mg/dL 07/12/2024 3:57 PM EST [facility] Blood Capillary blood specimen / Unknown 07/12/2024 3:53 PM EST 07/12/2024 3:59 PM EST us Kwesi Guido MD LAB POINT OF C ARE TEST DOCKED DEVICE UNSOLICITED RESULTS Final Result Performing Organization Address City/[facility]/ZIP Co de Phone Number [facility] [address] [place] [address], [place] [phone] * (ABNORMAL) Protein and creatinine with ratio, urine (07/12/2024 3:27 PM EST) Protein, Urine 192 mg/dL LAB CHEMISTRY METHOD 07/12/2024 6:44 PM [facility] LAB Prot/Creat, Ur 3.00(H) <=0.20 mg/mg creat LAB CHEMISTRY METHOD 07/12/2024 6:44 PM [facility] LAB Creatinine, Urine 64.0 mg/dL LAB CHEMISTRY METHOD 07/12/2024 6:44 PM [facility] Urine Urine specimen obtained by clean catch procedure / Unknown Non-blood Collection / Unknown 07/12/2024 3:27 PM EST 07/12/2024 4:10 PM EST us Chencho Wayne MD LAB URINE ORDERABLES Final Resu lt Performing Organization Address City/[facility]/ZIP Co de Phone Number [facility] [address] [place] [address], [place] [phone] * Creatinine, urine, random (07/12/2024 3:27 PM EST) Creatinine, Urine 64.0 mg/dL LAB CHEMISTRY METHOD 07/12/2024 4:41 PM EST [facility] Urine Urine specimen from urethra / Unknown Non-blood Collection / Unknown 07/12/2024 3:27 PM EST 07/12/2024 4:11 PM EST us Chencho Wayne MD LAB URINE ORDERABLES Final Resu lt [facility] [address] [place] [address], [place] [phone] * Sodium, urine, random (07/12/2024 3:27 PM EST) Sodium, Ur 34 mmol/L LAB CHEMISTRY METHOD 07/12/2024 6:44 PM EST [facility] Urine Urine specimen obtained by clean catch procedure / Unknown Non-blood Collection / Unknown 07/12/2024 3:27 PM EST 07/12/2024 4:10 PM EST Aye HEDRICK LAB URINE ORDERABLES Final Re sult Performing Organization Address [facility] Co de Phone Number [facility] [address] [place] [address], [place] [phone] * Osmolality, urine (07/12/2024 3:27 PM EST) Osmolality, Urine 397 300 - 1,300 mOsm/kg LAB CHEMISTRY METHOD 07/12/2024 5:57 PM EST [facility] Urine Urine specimen obtained by clean catch procedure / Unknown Non-blood Collection / Unknown 07/12/2024 3:27 PM EST 07/12/2024 4:10 PM EST Aye HEDRICK LAB URINE ORDERABLES Final Re sult Performing Organization Address [facility] de Phone Number [facility] [address] [place] [address], [place] [phone] * CT Chest wo Contrast (07/12/2024 12:48 PM EST) Anatomical Region Laterality Modality Body Computed Tomogra phy 07/12/2024 1:07 PM EST Impressions 07/12/2024 1:19 PM EST Impression: 1. No significant change in an irregular juxtapleural nodular opacity in the right lung apex. Malignancy is not excluded. 2. No developing lymphadenopathy. 3. Small bilateral pleural effusions, new. Starr HEDRICK ([id number]) -------- FINAL REPORT -------- Dictated By: Edilia Durbin Dictated Date: 07/12/2024 13:07 ET Assigned Physician: Edilia Durbin Reviewed and Electronically Signed By: Edilia Durbin Signed Date: 07/12/2024 13:19 ET Workstation ID: [id number] Transcribed By: Self Edit Transcribed Date: 07/12/2024 13:07 ET Narrative 07/12/2024 1:19 PM EST History: Abnormal chest radiograph. The patient underwent nondiagnostic CT- guided biopsy of the right apical lung nodule on 05/23/24. Comparison: Thoracic CT 06/17/24, 03/21/24 Technique: Helical volumetric imaging of the thorax was performed without IV contrast. DLP: 613.10 mGy/cm GE [employer] VCT Iterative reconstruction technique Findings: Respiratory motion [...] performed withoutIV contrast. DLP: 613.10 mGy/cm [employer] VCT Iterative reconstruction technique Findings: Respiratory motion [...] lymphadenopathy. 3. Small bilateral pleural effusions, new. [employer] RYLEY ([id number]) -------- FINAL REPORT -------- Dictated By: Edilia Durbin Dictated Date: 07/12/2024 13:07 ET Assigned Physician: Edilia Durbin Reviewed and Electronically Signed By: Edilia Durbin Signed Date: 07/12/2024 13:19 ET Workstation ID: [id number] Transcribed By: Self Edit Transcribed Date: 07/12/2024 13:07 ET us Kwesi Guido MD IMG CT PROCEDURES [place] Result * (ABNORMAL) POCT Glucose, blood (07/12/2024 11:48 AM EST) Glucose POCT 176(H) 70 - 100 mg/dL 07/12/2024 11:49 AM EST [facility] Blood Capillary blood specimen / Unknown 07/12/2024 11:48 AM EST 07/12/2024 11:50 AM EST us Kwesi Guido MD LAB POINT OF ARE TEST DOCKED DEVICE UNSOLICITED RESULTS Final Result Performing Organization Address [facility]/ZIP Co de Phone Number [facility] [address] [place] [address], [place] [phone] * (ABNORMAL) POCT Glucose, blood (07/12/2024 8:07 AM EST) [facility] Glucose POCT 166(H) 70 - 100 mg/dL 07/12/2024 8:31 AM EST [facility] Blood Capillary blood specimen / Unknown 07/12/2024 8:07 AM EST 07/12/2024 8:32 AM EST us Kwesi Guido MD LAB POINT OF ARE TEST DOCKED DEVICE UNSOLICITED RESULTS Final Result Performing Organization Address [facility] Co de Phone Number [facility] [address] [place] [address], [place] [phone] * (ABNORMAL) Lipase (07/12/2024 6:19 AM EST) [facility] Lipase <10(L) 13 - 75 unit/L LAB CHEMISTRY METHOD 07/12/2024 3:26 PM EST [facility] Blood Venous blood specimen / Unknown Venipuncture / Unknown 07/12/2024 6:19 AM EST 07/12/2024 6:56 AM EST us Kwesi Guido MD LAB BLOOD ORDERABLES F inal Result Performing Organization Address [facility]/ZIP Co de Phone Number [facility] [address] [place] [address], [place] [phone] * (ABNORMAL) Hepatic function panel (07/12/2024 6:19 AM EST) [facility] Total Protein 4.9(L) 6.0 - 8.0 g/dL LAB CHEMISTRY METHOD 07/12/2024 3:26 PM [facility] Albumin 1.5(L) 3.2 - 5.0 g/dL LAB CHEMISTRY METHOD 07/12/2024 3:26 PM [facility] Total Bilirubin 0.5 0.0 - 1.4 mg/dL LAB CHEMISTRY METHOD 07/12/2024 3:26 PM [facility] LAB Bilirubin, Direct 0.2 0.0 - 0.3 mg/dL LAB CHEMISTRY METHOD 07/12/2024 3:26 PM [facility] LAB Bilirubin, Indirect 0.3 0.0 - 1.1 mg/dL LAB CHEMISTRY METHOD 07/12/2024 3:26 PM [facility] ALT (SGPT) 37 10 - 60 unit/L LAB CHEMISTRY METHOD 07/12/2024 3:26 PM [facility] AST (SGOT) 32 10 - 42 unit/L LAB CHEMISTRY METHOD 07/12/2024 3:26 PM [facility] LAB Alkaline Phosphatase 157(H) 42 - 121 unit/L LAB CHEMISTRY METHOD 07/12/2024 3:26 PM [facility] LAB Blood Venous blood specimen / Unknown Venipuncture / Unknown 07/12/2024 6:19 AM EST 07/12/2024 6:56 AM EST us Kwesi Guido MD LAB BLOOD ORDERABLES F inal Result [facility] [address] [place] [address], * (ABNORMAL) Procalcitonin (07/12/2024 6:19 AM EST) Procalcitonin 3.11(H) <=0.16 ng/mL LAB CHEMISTRY METHOD 07/12/2024 12:23 PM [facility] LAB [...] inal Result [facility] [address] [place] [address], * (ABNORMAL) C-reactive protein (07/12/2024 6:19 AM EST) C-Reactive Protein 16.60(H) <=0.50 mg/dL LAB CHEMISTRY METHOD 07/12/2024 10:35 AM EST [facility] Blood Venous blood specimen / Unknown Venipuncture / Unknown 07/12/2024 6:19 AM EST 07/12/2024 6:56 AM EST us Kwesi Guido MD LAB BLOOD ORDERABLES F inal Result [facility] [address] [place] [address], * (ABNORMAL) CBC auto differential (07/12/2024 6:19 AM EST) WBC 21.8(H) 4.8 - 10.8 K/mcL LAB HEMETOLOGY METHOD 07/12/2024 7:08 AM [facility] RBC 3.10(L) 3.80 - 4.80 M/mcL LAB HEMETOLOGY METHOD 07/12/2024 7:08 AM [facility] LAB Hemoglobin 7.2(L) 11.5 - 16.0 g/dL LAB HEMETOLOGY METHOD 07/12/2024 7:08 AM [facility] LAB Hematocrit 22.6(L) 35.0 - 47.0 % LAB HEMETOLOGY METHOD 07/12/2024 7:08 AM [facility] LAB MCV 74.1(L) 79.0 - 98.0 FL LAB HEMETOLOGY METHOD 07/12/2024 7:08 AM [facility] LAB MCH 23.6(L) 27.0 - 32.0 pcg LAB HEMETOLOGY METHOD 07/12/2024 7:08 AM [facility] LAB MCHC 31.9(L) 32.0 - 37.0 g/dL LAB HEMETOLOGY METHOD 07/12/2024 7:08 AM [facility] LAB RDW 21.0(H) 11.0 - 15.0 % LAB HEMETOLOGY METHOD 07/12/2024 7:08 AM [facility] LAB Platelets 206 130 - 400 K/mcL LAB HEMETOLOGY METHOD 07/12/2024 7:08 AM [facility] LAB MPV 9.6 7.0 - 11.0 FL LAB HEMETOLOGY METHOD 07/12/2024 7:08 AM [facility] LAB NRBC 0.0 <1.0 % LAB HEMETOLOGY METHOD 07/12/2024 7:08 AM [facility] LAB NRBC Absolute 0.00 <0.10 K/mcL LAB HEMETOLOGY METHOD 07/12/2024 7:08 AM [facility] LAB Neutrophils Relative 86.5 % LAB HEMETOLOGY METHOD 07/12/2024 7:08 AM [facility] LAB Lymphocytes Relative 2.7 % LAB HEMETOLOGY METHOD 07/12/2024 7:08 AM [facility] Monocytes Relative 5.8 % LAB HEMETOLOGY METHOD 07/12/2024 7:08 AM [facility] LAB Eosinophils Relative 2.8 % LAB HEMETOLOGY METHOD 07/12/2024 7:08 AM [facility] Basophils Relative 0.2 % LAB HEMETOLOGY METHOD 07/12/2024 7:08 AM [facility] Immature Granulocytes Relative 2.0 % LAB HEMETOLOGY METHOD 07/12/2024 7:08 AM [facility] LAB Neutrophils Absolute 18.89(H) 1.50 - 7.00 K/mcL LAB HEMETOLOGY METHOD 07/12/2024 7:08 AM [facility] LAB Lymphocytes Absolute 0.59(L) 1.00 - 5.00 K/mcL LAB HEMETOLOGY METHOD 07/12/2024 7:08 AM [facility] LAB Monocytes Absolute 1.27(H) 0.20 - 1.00 K/mcL LAB HEMETOLOGY METHOD 07/12/2024 7:08 AM [facility] LAB Eosinophils Absolute 0.62(H) 0.00 - 0.50 K/mcL LAB HEMETOLOGY METHOD 07/12/2024 7:08 AM [facility] LAB [...] ORDERABLES F inal Result Performing Organization Address City/[facility]/ZIP Co de Phone Number [facility] [address] [place] [address], [place] [phone] * Phosphorus (07/12/2024 6:19 AM EST) Phosphorus 2.9 2.5 - 4.5 mg/dL LAB CHEMISTRY METHOD 07/12/2024 7:48 AM EST [facility] Blood Venous blood specimen / Unknown Venipuncture / Unknown 07/12/2024 6:19 AM EST 07/12/2024 6:56 AM EST us Kwesi Guido MD LAB BLOOD ORDERABLES F inal Result Performing Organization Address City/[facility]/ZIP Co de Phone Number [facility] [address] [place] [address], [place] [phone] * (ABNORMAL) Magnesium (07/12/2024 6:19 AM EST) Magnesium 1.8(L) 1.9 - 2.6 mg/dL LAB CHEMISTRY METHOD 07/12/2024 7:48 AM EST [facility] Blood Venous blood specimen / Unknown Venipuncture / Unknown 07/12/2024 6:19 AM EST 07/12/2024 6:56 AM EST us Kwesi Guido MD LAB BLOOD ORDERABLES F inal Result [facility] [address] [place] [address], * (ABNORMAL) Basic metabolic panel (07/12/2024 6:19 AM EST) Sodium 132(L) 133 - 145 mmol/L LAB CHEMISTRY METHOD 07/12/2024 7:49 AM EST [facility] Potassium 3.7 3.5 - 5.5 mmol/L LAB CHEMISTRY METHOD 07/12/2024 7:49 AM [facility] Chloride 102 96 - 110 mmol/L LAB CHEMISTRY METHOD 07/12/2024 7:49 AM [facility] LAB CO2 18(L) 21 - 32 mmol/L LAB CHEMISTRY METHOD 07/12/2024 7:49 AM [facility] LAB Anion Gap 12(H) 3 - 11 LAB CHEMISTRY METHOD 07/12/2024 7:49 AM [facility] LAB Glucose 132(H) 70 - 100 mg/dL LAB CHEMISTRY METHOD 07/12/2024 7:49 AM [facility] BUN 70(H) 5 - 25 mg/dL LAB CHEMISTRY METHOD 07/12/2024 7:49 AM [facility] LAB Creatinine 4.64(H) 0.50 - 1.10 mg/dL LAB CHEMISTRY METHOD 07/12/2024 7:49 AM [facility] LAB eGFR 9(L) >=60 mL/min/1. 73m2 LAB CHEMISTRY METHOD 07/12/2024 7:49 AM [facility] LAB Comment:Calculation based on the??Chronic Kidney Disease Epidemiology Collaboration (CKD-EPI) equation refit??without adjustment for race. BUN/Creatinine Ratio 15.1 LAB CHEMISTRY METHOD 07/12/2024 7:49 AM [facility] LAB Calcium 8.1(L) 8.5 - 10.5 mg/dL LAB CHEMISTRY METHOD 07/12/2024 7:49 AM EST [facility] Blood Venous blood specimen / Unknown Venipuncture / Unknown 07/12/2024 6:19 AM EST 07/12/2024 6:56 AM EST us Kwesi Guido MD LAB BLOOD ORDERABLES F inal Result Performing Organization Address City/[facility]/ZIP Co de Phone Number [facility] [address] [place] [address], [place] [phone] * (ABNORMAL) POCT Glucose, blood (07/11/2024 8:03 [...] UNSOLICITED RESULTS Final Result Performing Organization Address [facility] Co de Phone Number [facility] [address] [place] [address], [place] [phone] * (ABNORMAL) POCT Glucose, blood (07/11/2024 3:51 PM EST) Glucose POCT 259(H) 70 - 100 mg/dL 07/11/2024 3:51 PM EST [facility] Blood Capillary blood specimen / Unknown 07/11/2024 3:51 PM EST 07/11/2024 3:52 PM EST us Kwesi Guido MD LAB POINT OF C ARE TEST DOCKED DEVICE UNSOLICITED RESULTS Final Result Performing Organization Address [facility]/ZIP Co de Phone Number [facility] [address] [place] [address], [place] [phone] * (ABNORMAL) POCT Glucose, blood (07/11/2024 11:10 AM EST) Glucose POCT 301(H) 70 - 100 mg/dL 07/11/2024 11:11 AM EST [facility] Blood Capillary blood specimen / Unknown 07/11/2024 11:10 AM EST 07/11/2024 11:13 AM EST us Kwesi Guido MD LAB POINT OF C ARE TEST DOCKED DEVICE UNSOLICITED RESULTS Final Result Performing Organization Address [facility] Co de Phone Number [facility] [address] [place] [address], [place] [phone] * (ABNORMAL) POCT Glucose, blood (07/11/2024 8:17 AM EST) Glucose POCT 191(H) 70 - 100 mg/dL 07/11/2024 8:17 AM EST [facility] Blood Capillary blood specimen / Unknown 07/11/2024 8:17 AM EST 07/11/2024 8:19 AM EST us Kwesi Guido MD LAB POINT OF C ARE TEST DOCKED DEVICE UNSOLICITED RESULTS Final Result Performing Organization Address [facility]/ZIP Co de Phone Number [facility] [address] [place] [address], [place] [phone] * Pathologist Review Immunofixation (07/11/2024 6:21 AM EST) Pathologist Interpretation Reviewed by Rosenda Galeana MD 07/13/2024 4:13 PM EST [facility] Blood Venous blood specimen / Unknown Venipuncture / Unknown 07/11/2024 6:21 AM EST 07/11/2024 6:43 AM EST us Chencho Wayne MD LAB BLOOD ORDERABLES Final Resu lt [facility] [address] [place] [address], [place] [phone] * (ABNORMAL) Hepatic function panel (07/11/2024 6:21 AM EST) Total Protein 5.1(L) 6.0 - 8.0 g/dL LAB CHEMISTRY METHOD 07/12/2024 3:26 PM [facility] Albumin 1.5(L) 3.2 - 5.0 g/dL LAB CHEMISTRY METHOD 07/12/2024 3:26 PM [facility] Total Bilirubin 0.6 0.0 - 1.4 mg/dL LAB CHEMISTRY METHOD 07/12/2024 3:26 PM [facility] Bilirubin, Direct 0.3 0.0 - 0.3 mg/dL LAB CHEMISTRY METHOD 07/12/2024 3:26 PM [facility] Bilirubin, Indirect 0.3 0.0 - 1.1 mg/dL LAB CHEMISTRY METHOD 07/12/2024 3:26 PM [facility] ALT (SGPT) 39 10 - 60 unit/L LAB CHEMISTRY METHOD 07/12/2024 3:26 PM [facility] AST (SGOT) 36 10 - 42 unit/L LAB CHEMISTRY METHOD 07/12/2024 3:26 PM [facility] Alkaline Phosphatase 168(H) 42 - 121 unit/L LAB CHEMISTRY METHOD 07/12/2024 3:26 PM [facility] Blood Venous blood specimen / Unknown Venipuncture / Unknown 07/11/2024 6:21 AM EST 07/11/2024 6:42 AM EST us Kwesi Guido MD LAB BLOOD ORDERABLES F inal Result Performing Organization Address City/[facility]/ZIP Co de Phone Number [facility] [address] [place] [address], [place] [phone] * Immunoglobulins IgG, IgA, IgM (07/11/2024 6:21 AM EST) [facility] Total IgG 1,090 549 - 1,584 mg/dL [...] ORDERABLES Final Resu lt Performing Organization Address [facility]/ZIP Co de Phone Number [facility] [address] [place] [address], [place] [phone] * Immunofixation electrophoresis serum (07/11/2024 6:21 AM EST) Pathologist [facility] Immunofixation Result, Serum Faint restriction of IgG [place], not observed on SPEP . Follow-up in 6 months if clinically indicated. LAB CHEMISTRY METHOD 07/13/2024 4:13 PM EST [facility] Blood Venous blood specimen / Unknown Venipuncture / Unknown 07/11/2024 6:21 AM EST 07/11/2024 6:43 AM EST us Chencho Wayne MD LAB BLOOD ORDERABLES Final Resu lt [facility] [address] [place] [address], * (ABNORMAL) CBC auto differential (07/11/2024 6:21 AM EST) WBC 18.4(H) 4.8 - 10.8 K/mcL LAB HEMETOLOGY METHOD 07/11/2024 6:52 AM EST [facility] RBC 3.20(L) 3.80 - 4.80 M/mcL LAB HEMETOLOGY METHOD 07/11/2024 6:52 AM [facility] Hemoglobin 7.4(L) 11.5 - 16.0 g/dL LAB HEMETOLOGY METHOD 07/11/2024 6:52 AM [facility] Hematocrit 23.7(L) 35.0 - 47.0 % LAB HEMETOLOGY METHOD 07/11/2024 6:52 AM [facility] MCV 75.0(L) 79.0 - 98.0 FL LAB HEMETOLOGY METHOD 07/11/2024 6:52 AM [facility] MCH 23.4(L) 27.0 - 32.0 pcg LAB HEMETOLOGY METHOD 07/11/2024 6:52 AM [facility] MCHC 31.2(L) 32.0 - 37.0 g/dL LAB HEMETOLOGY METHOD 07/11/2024 6:52 AM [facility] RDW 20.2(H) 11.0 - 15.0 % LAB HEMETOLOGY METHOD 07/11/2024 6:52 AM [facility] Platelets 211 130 - 400 K/mcL LAB HEMETOLOGY METHOD 07/11/2024 6:52 AM [facility] MPV 9.1 7.0 - 11.0 FL LAB HEMETOLOGY METHOD 07/11/2024 6:52 AM [facility] NRBC 0.0 <1.0 % LAB HEMETOLOGY METHOD 07/11/2024 6:52 AM [facility] NRBC Absolute 0.00 <0.10 K/mcL LAB HEMETOLOGY METHOD 07/11/2024 6:52 AM [facility] Neutrophils Relative 86.2 % LAB HEMETOLOGY METHOD 07/11/2024 6:52 AM [facility] Lymphocytes Relative 3.0 % LAB HEMETOLOGY METHOD 07/11/2024 6:52 AM [facility] Monocytes Relative 5.9 % LAB HEMETOLOGY METHOD 07/11/2024 6:52 AM [facility] Eosinophils Relative 3.3 % LAB HEMETOLOGY METHOD 07/11/2024 6:52 AM [facility] Basophils Relative 0.2 % LAB HEMETOLOGY METHOD 07/11/2024 6:52 AM [facility] Immature Granulocytes Relative 1.4 % LAB HEMETOLOGY METHOD 07/11/2024 6:52 AM [facility] Neutrophils Absolute 15.84(H) 1.50 - 7.00 K/mcL LAB HEMETOLOGY METHOD 07/11/2024 6:52 AM [facility] Lymphocytes Absolute 0.56(L) 1.00 - 5.00 K/mcL LAB HEMETOLOGY METHOD 07/11/2024 6:52 AM [facility] Monocytes Absolute 1.09(H) 0.20 - 1.00 K/mcL LAB HEMETOLOGY METHOD 07/11/2024 6:52 AM [facility] Eosinophils Absolute 0.61(H) 0.00 - 0.50 K/mcL LAB HEMETOLOGY METHOD 07/11/2024 6:52 AM [facility] Basophils Absolute 0.04 0.00 - 0.20 K/mcL LAB HEMETOLOGY METHOD 07/11/2024 6:52 AM [facility] Immature Granulocytes Absolute 0.26(H) 0.00 - 0.03 K/mcL LAB HEMETOLOGY METHOD 07/11/2024 6:52 AM [facility] Blood Venous blood specimen / Unknown Venipuncture / Unknown 07/11/2024 6:21 AM EST 07/11/2024 6:41 AM EST us Maria Alejandra Melendez MD LAB BLOOD ORDERABLES Final Res ult [facility] [address] [place] [address], * (ABNORMAL) Basic metabolic panel (07/11/2024 6:21 AM EST) Sodium 130(L) 133 - 145 mmol/L LAB CHEMISTRY METHOD 07/11/2024 7:27 AM [facility] Potassium 3.7 3.5 - 5.5 mmol/L LAB CHEMISTRY METHOD 07/11/2024 7:27 AM [facility] Chloride 102 96 - 110 mmol/L LAB CHEMISTRY METHOD 07/11/2024 7:27 AM [facility] CO2 19(L) 21 - 32 mmol/L LAB CHEMISTRY METHOD 07/11/2024 7:27 AM [facility] Anion Gap 9 3 - 11 LAB CHEMISTRY METHOD 07/11/2024 7:27 AM [facility] Glucose 174(H) 70 - 100 mg/dL LAB CHEMISTRY METHOD 07/11/2024 7:27 AM [facility] BUN 69(H) 5 - 25 mg/dL LAB CHEMISTRY METHOD 07/11/2024 7:27 AM [facility] Creatinine 4.36(H) 0.50 - 1.10 mg/dL LAB CHEMISTRY METHOD 07/11/2024 7:27 AM [facility] eGFR 10(L) >=60 mL/min/1. 73m2 LAB CHEMISTRY METHOD 07/11/2024 7:27 AM EST [facility] Comment:Calculation based on the??Chronic Kidney Disease Epidemiology Collaboration (CKD-EPI) equation refit??without adjustment for race. BUN/Creatinine Ratio 15.8 LAB CHEMISTRY METHOD 07/11/2024 7:27 AM [facility] Calcium 8.2(L) 8.5 - 10.5 mg/dL LAB CHEMISTRY METHOD 07/11/2024 7:27 AM EST [facility] Blood Venous blood specimen / Unknown Venipuncture / Unknown 07/11/2024 6:21 AM EST 07/11/2024 6:42 AM EST us Maria Alejandra Melendez MD LAB BLOOD ORDERABLES Final Res ult Performing Organization Address City/[facility]/ZIP Co de Phone Number [facility] [address] [place] [address], [place] [phone] * (ABNORMAL) POCT Glucose, blood (07/10/2024 8:33 PM EST) Glucose POCT 325(H) 70 - 100 mg/dL 07/10/2024 8:34 PM EST [facility] Blood Capillary blood specimen / Unknown 07/10/2024 8:33 PM EST 07/10/2024 8:35 PM EST Maria Alejandra Melendez MD LAB POINT OF CARE TE ST DOCKED DEVICE UNSOLICITED RESULTS Final Result [facility] [address] [place] [address], [place] [phone] * (ABNORMAL) POCT Glucose, blood (07/10/2024 4:11 PM EST) Glucose POCT 287(H) 70 - 100 mg/dL 07/10/2024 4:12 PM EST [facility] Blood Capillary blood specimen / Unknown 07/10/2024 4:11 PM EST 07/10/2024 4:13 PM EST Maria Alejandra Melendez MD LAB POINT OF CARE TE ST DOCKED DEVICE UNSOLICITED RESULTS Final Result Performing Organization Address [facility]/ZIP Co de Phone Number [facility] [address] [place] [address], [place] [phone] * (ABNORMAL) POCT Glucose, blood (07/10/2024 11:29 AM EST) Glucose POCT 214(H) 70 - 100 mg/dL 07/10/2024 11:45 AM EST [facility] Blood Capillary blood specimen / Unknown 07/10/2024 11:29 AM EST 07/10/2024 11:47 AM EST us Maria Alejandra Melendez MD LAB POINT OF CARE TE ST DOCKED DEVICE UNSOLICITED RESULTS Final Result Performing Organization Address [facility]/ZIP Co de Phone Number [facility] [address] [place] [address], [place] [phone] * (ABNORMAL) POCT Glucose, blood (07/10/2024 8:40 AM EST) Glucose POCT 164(H) 70 - 100 mg/dL 07/10/2024 8:42 AM EST [facility] Blood Capillary blood specimen / Unknown 07/10/2024 8:40 AM EST 07/10/2024 8:43 AM EST us Maria Alejandra Melendez MD LAB POINT OF CARE TE ST DOCKED DEVICE UNSOLICITED RESULTS Final Result Performing Organization Address City/[facility]/ZIP Co de Phone Number [facility] [address] [place] [address], [place] [phone] * (ABNORMAL) Triiodothyronine free (07/10/2024 5:16 AM EST) T3, Free 154(L) 230 - 420 pcg/dL LAB CHEMISTRY METHOD 07/10/2024 2:10 PM EST [facility] Blood Venous blood specimen / Unknown Venipuncture / Unknown 07/10/2024 5:16 AM EST 07/10/2024 6:42 AM EST Maria Alejandra Melendez MD LAB BLOOD ORDERABLES Final Res ult [facility] [address] [place] [address], [place] [phone] * Thyroxine free (07/10/2024 5:16 AM EST) Free T4 0.92 0.70 - 1.80 ng/dL LAB CHEMISTRY METHOD 07/10/2024 2:04 PM EST [facility] Blood Venous blood specimen / Unknown Venipuncture / Unknown 07/10/2024 5:16 AM EST 07/10/2024 6:42 AM EST Maria Alejandra Melendez MD LAB BLOOD ORDERABLES Final Res ult [facility] [address] [place] [address], [place] [phone] * (ABNORMAL) Parathyroid hormone intact (07/10/2024 5:16 AM EST) PTH 10.5(L) 18.5 - 88.0 pcg/mL LAB CHEMISTRY METHOD 07/10/2024 1:47 PM EST [facility] Blood Venous blood specimen / Unknown Venipuncture / Unknown 07/10/2024 5:16 AM EST 07/10/2024 6:42 AM EST us Maria Alejandra Melendez MD LAB BLOOD ORDERABLES Final Res ult [facility] [address] [place] [address], * (ABNORMAL) CBC auto differential (07/10/2024 5:16 AM EST) WBC 16.9(H) 4.8 - 10.8 K/mcL LAB HEMETOLOGY METHOD 07/10/2024 7:29 AM [facility] RBC 3.30(L) 3.80 - 4.80 M/mcL LAB HEMETOLOGY METHOD 07/10/2024 7:29 AM [facility] Hemoglobin 7.6(L) 11.5 - 16.0 g/dL LAB HEMETOLOGY METHOD 07/10/2024 7:29 AM [facility] Hematocrit 24.4(L) 35.0 - 47.0 % LAB HEMETOLOGY METHOD 07/10/2024 7:29 AM [facility] MCV 74.4(L) 79.0 - 98.0 FL LAB HEMETOLOGY METHOD 07/10/2024 7:29 AM [facility] MCH 23.2(L) 27.0 - 32.0 pcg LAB HEMETOLOGY METHOD 07/10/2024 7:29 AM [facility] MCHC 31.1(L) 32.0 - 37.0 g/dL LAB HEMETOLOGY METHOD 07/10/2024 7:29 AM [facility] RDW 19.8(H) 11.0 - 15.0 % LAB HEMETOLOGY METHOD 07/10/2024 7:29 AM [facility] Platelets 277 130 - 400 K/mcL LAB HEMETOLOGY METHOD 07/10/2024 7:29 AM [facility] MPV 9.1 7.0 - 11.0 FL LAB HEMETOLOGY METHOD 07/10/2024 7:29 AM [facility] NRBC 0.0 <1.0 % LAB HEMETOLOGY METHOD 07/10/2024 7:29 AM [facility] NRBC Absolute 0.00 <0.10 K/mcL LAB HEMETOLOGY METHOD 07/10/2024 7:29 AM [facility] Neutrophils Relative 86.9 % LAB HEMETOLOGY METHOD 07/10/2024 7:29 AM [facility] Lymphocytes Relative 3.2 % LAB HEMETOLOGY METHOD 07/10/2024 7:29 AM [facility] Monocytes Relative 5.9 % LAB HEMETOLOGY METHOD 07/10/2024 7:29 AM [facility] Eosinophils Relative 2.8 % LAB HEMETOLOGY METHOD 07/10/2024 7:29 AM [facility] Basophils Relative 0.2 % LAB HEMETOLOGY METHOD 07/10/2024 7:29 AM [facility] Immature Granulocytes Relative 1.0 % LAB HEMETOLOGY METHOD 07/10/2024 7:29 AM [facility] Neutrophils Absolute 14.72(H) 1.50 - 7.00 K/mcL LAB HEMETOLOGY METHOD 07/10/2024 7:29 AM [facility] Lymphocytes Absolute 0.54(L) 1.00 - 5.00 K/mcL LAB HEMETOLOGY METHOD 07/10/2024 7:29 AM [facility] Monocytes Absolute 1.00 0.20 - 1.00 K/mcL LAB HEMETOLOGY METHOD 07/10/2024 7:29 AM [facility] Eosinophils Absolute 0.47 0.00 - 0.50 K/mcL LAB HEMETOLOGY METHOD 07/10/2024 7:29 AM [facility] [...] ORDERABLES Final Res ult Performing Organization Address City/[facility]/ZIP Co de Phone Number [facility] [address] [place] [address], [place] [phone] * (ABNORMAL) Magnesium (07/10/2024 5:16 AM EST) Magnesium 1.8(L) 1.9 - 2.6 mg/dL LAB CHEMISTRY METHOD 07/10/2024 7:38 AM EST [facility] Blood Venous blood specimen / Unknown Venipuncture / Unknown 07/10/2024 5:16 AM EST 07/10/2024 6:42 AM EST us Maria Alejandra Melendez MD LAB BLOOD ORDERABLES Final Res ult Performing Organization Address City/[facility]/ZIP Co de Phone Number [facility] [address] [place] [address], [place] [phone] * (ABNORMAL) Basic metabolic panel (07/10/2024 5:16 AM EST) Sodium 133 133 - 145 mmol/L LAB CHEMISTRY METHOD 07/10/2024 7:39 AM EST [facility] Potassium 3.8 3.5 - 5.5 mmol/L LAB CHEMISTRY METHOD 07/10/2024 7:39 AM EST [facility] Chloride 105 96 - 110 mmol/L LAB CHEMISTRY METHOD 07/10/2024 7:39 AM [facility] CO2 20(L) 21 - 32 mmol/L LAB CHEMISTRY METHOD 07/10/2024 7:39 AM [facility] Anion Gap 8 3 - 11 LAB CHEMISTRY METHOD 07/10/2024 7:39 AM [facility] Glucose 167(H) 70 - 100 mg/dL LAB CHEMISTRY METHOD 07/10/2024 7:39 AM [facility] BUN 65(H) 5 - 25 mg/dL LAB CHEMISTRY METHOD 07/10/2024 7:39 AM [facility] Creatinine 4.19(H) 0.50 - 1.10 mg/dL LAB CHEMISTRY METHOD 07/10/2024 7:39 AM [facility] eGFR 10(L) >=60 mL/min/1. 73m2 LAB CHEMISTRY METHOD 07/10/2024 7:39 AM [facility] Comment:Calculation based on the??Chronic Kidney Disease Epidemiology Collaboration (CKD-EPI) equation refit??without adjustment for race. BUN/Creatinine Ratio 15.5 LAB CHEMISTRY METHOD 07/10/2024 7:39 AM [facility] Calcium 8.5 8.5 - 10.5 mg/dL LAB CHEMISTRY METHOD 07/10/2024 7:39 AM [facility] Blood Venous blood specimen / Unknown Venipuncture / Unknown 07/10/2024 5:16 AM EST 07/10/2024 6:42 AM EST us Maria Alejandra Melendez MD LAB BLOOD ORDERABLES Final Res ult [facility] [address] [place] [address], * (ABNORMAL) POCT Glucose, blood (07/09/2024 7:52 PM EST) Glucose POCT 243(H) 70 - 100 mg/dL 07/09/2024 7:53 PM EST [facility] Blood Capillary blood specimen / Unknown 07/09/2024 7:52 PM EST 07/09/2024 7:54 PM EST us Maria Alejandra Melendez MD LAB POINT OF CARE TE ST DOCKED DEVICE UNSOLICITED RESULTS Final Result Performing Organization Address City/[facility]/ZIP Co de Phone Number [facility] [address] [place] [address], [place] [phone] * (ABNORMAL) POCT Glucose, blood (07/09/2024 4:27 PM EST) Glucose POCT 264(H) 70 - 100 mg/dL 07/09/2024 4:28 PM EST [facility] Blood Capillary blood specimen / Unknown 07/09/2024 4:27 PM EST 07/09/2024 4:29 PM EST us Maria Alejandra Melendez MD LAB POINT OF CARE TE ST DOCKED DEVICE UNSOLICITED RESULTS Final Result Performing Organization Address [facility] Co de Phone Number [facility] [address] [place] [address], [place] [phone] * (ABNORMAL) POCT Glucose, blood (07/09/2024 11:33 AM EST) Glucose POCT 179(H) 70 - 100 mg/dL 07/09/2024 11:34 AM EST [facility] Blood Capillary blood specimen / Unknown 07/09/2024 11:33 AM EST 07/09/2024 11:35 AM EST us Maria Alejandra Melendez MD LAB POINT OF CARE TE ST DOCKED DEVICE UNSOLICITED RESULTS Final Result Performing Organization Address City/[facility]/ZIP Co de Phone Number [facility] [address] [place] [address], [place] [phone] * (ABNORMAL) POCT Glucose, blood (07/09/2024 8:59 AM EST) [facility] Glucose POCT 175(H) 70 - 100 mg/dL 07/09/2024 9:06 AM [facility] Blood Capillary blood specimen / Unknown 07/09/2024 8:59 AM EST 07/09/2024 9:08 AM EST us Maria Alejandra Melendez MD LAB POINT OF CARE TE ST DOCKED DEVICE UNSOLICITED RESULTS Final Result [facility] [address] [place] [address], [place] [phone] * (ABNORMAL) CBC auto differential (07/09/2024 6:25 AM EST) [facility] WBC 18.4(H) 4.8 - 10.8 K/mcL LAB HEMETOLOGY METHOD 07/09/2024 8:05 AM [facility] RBC 3.50(L) 3.80 - 4.80 M/mcL LAB HEMETOLOGY METHOD 07/09/2024 8:05 AM [facility] Hemoglobin 8.3(L) 11.5 - 16.0 g/dL LAB HEMETOLOGY METHOD 07/09/2024 8:05 AM [facility] Hematocrit 26.1(L) 35.0 - 47.0 % LAB HEMETOLOGY METHOD 07/09/2024 8:05 AM [facility] MCV 74.4(L) 79.0 - 98.0 FL LAB HEMETOLOGY METHOD 07/09/2024 8:05 AM [facility] MCH 23.6(L) 27.0 - 32.0 pcg LAB HEMETOLOGY METHOD 07/09/2024 8:05 AM [facility] MCHC 31.8(L) 32.0 - 37.0 g/dL LAB HEMETOLOGY METHOD 07/09/2024 8:05 AM [facility] RDW 19.2(H) 11.0 - 15.0 % LAB HEMETOLOGY METHOD 07/09/2024 8:05 AM [facility] Platelets 333 130 - 400 K/mcL LAB HEMETOLOGY METHOD 07/09/2024 8:05 AM [facility] MPV 9.1 7.0 - 11.0 FL LAB HEMETOLOGY METHOD 07/09/2024 8:05 AM [facility] NRBC 0.0 <1.0 % LAB HEMETOLOGY METHOD 07/09/2024 8:05 AM [facility] NRBC Absolute 0.00 <0.10 K/mcL LAB HEMETOLOGY METHOD 07/09/2024 8:05 AM [facility] Neutrophils Relative 89.0 % LAB HEMETOLOGY METHOD 07/09/2024 8:05 AM [facility] Lymphocytes Relative 2.8 % LAB HEMETOLOGY METHOD 07/09/2024 8:05 AM [facility] Monocytes Relative 6.1 % LAB HEMETOLOGY METHOD 07/09/2024 8:05 AM [facility] Eosinophils Relative 1.1 % LAB HEMETOLOGY METHOD 07/09/2024 8:05 AM [facility] Basophils Relative 0.2 % LAB HEMETOLOGY METHOD 07/09/2024 8:05 AM [facility] Immature Granulocytes Relative 0.8 % LAB HEMETOLOGY METHOD 07/09/2024 8:05 AM [facility] Neutrophils Absolute 16.38(H) 1.50 - 7.00 K/mcL LAB HEMETOLOGY METHOD 07/09/2024 8:05 AM [facility] Lymphocytes Absolute 0.52(L) 1.00 - 5.00 K/mcL LAB HEMETOLOGY METHOD 07/09/2024 8:05 AM EST [facility] Monocytes Absolute 1.13(H) 0.20 - 1.00 K/[facility] LAB HEMETOLOGY METHOD 07/09/2024 8:05 AM EST [facility] Eosinophils Absolute 0.21 0.00 - 0.50 K/mcL LAB HEMETOLOGY METHOD 07/09/2024 8:05 AM EST [facility] Basophils Absolute 0.03 0.00 - 0.20 K/[facility] LAB HEMETOLOGY METHOD 07/09/2024 8:05 AM EST [facility] Immature Granulocytes Absolute 0.14(H) 0.00 - 0.03 K/[facility] LAB HEMETOLOGY METHOD 07/09/2024 8:05 AM [facility] Blood Venous blood specimen / Unknown Venipuncture / Unknown 07/09/2024 6:25 AM EST 07/09/2024 7:11 AM EST us Aye HEDRICK LAB BLOOD ORDERABLES Final Re sult [facility] [address] [place] [address], [place] [phone] * Creatine kinase (07/09/2024 6:25 AM EST) Pathologist [facility] Total CK 172 22 - 269 unit/L LAB CHEMISTRY METHOD 07/09/2024 8:11 AM EST [facility] Blood Venous blood specimen / Unknown Venipuncture / Unknown 07/09/2024 6:25 AM EST 07/09/2024 7:11 AM EST us Aye HEDRICK LAB BLOOD ORDERABLES Final Re sult [facility] [address] [place] [address], [place] [phone] * (ABNORMAL) Calcium, ionized (07/09/2024 6:25 AM EST) [facility] Calcium Ionized 5.66(H) 4.50 - 5.30 mg/dL 07/09/2024 7:23 AM EST [facility] Blood Venous blood specimen / Unknown Venipuncture / Unknown 07/09/2024 6:25 AM EST 07/09/2024 7:11 AM EST Aye [facility] LAB BLOOD ORDERABLES Final Re sult Performing Organization Address City/[facility]/ZIP Co de Phone Number [facility] [address] [place] [address], [place] [phone] * Magnesium (07/09/2024 6:25 AM EST) [facility] Magnesium 2.0 1.9 - 2.6 mg/dL LAB CHEMISTRY METHOD 07/09/2024 8:11 AM EST [facility] Blood Venous blood specimen / Unknown Venipuncture / Unknown 07/09/2024 6:25 AM EST 07/09/2024 7:11 AM EST [facility] BLOOD ORDERABLES Final Re sult Performing Organization Address City/[facility]/ZIP Co de Phone Number [facility] [address] [place] [address], [place] [phone] * (ABNORMAL) Basic metabolic panel (07/09/2024 6:25 AM EST) [facility] Sodium 131(L) 133 - 145 mmol/L LAB CHEMISTRY METHOD 07/09/2024 8:12 AM [facility] Potassium 3.8 3.5 - 5.5 mmol/L LAB CHEMISTRY METHOD 07/09/2024 8:12 AM EST [facility] Chloride 101 96 - 110 mmol/L LAB CHEMISTRY METHOD 07/09/2024 8:12 AM [facility] CO2 21 21 - 32 mmol/L LAB CHEMISTRY METHOD 07/09/2024 8:12 AM [facility] Anion Gap 9 3 - 11 LAB CHEMISTRY METHOD 07/09/2024 8:12 AM [facility] Glucose 170(H) 70 - 100 mg/dL LAB CHEMISTRY METHOD 07/09/2024 8:12 AM [facility] BUN 63(H) 5 - 25 mg/dL LAB CHEMISTRY METHOD 07/09/2024 8:12 AM [facility] Creatinine 4.07(H) 0.50 - 1.10 mg/dL LAB CHEMISTRY METHOD 07/09/2024 8:12 AM [facility] eGFR 11(L) >=60 mL/min/1. 73m2 LAB CHEMISTRY METHOD 07/09/2024 8:12 AM [facility] Comment:Calculation based on the??Chronic Kidney Disease Epidemiology Collaboration (CKD-EPI) equation refit??without adjustment for race. BUN/Creatinine Ratio 15.5 LAB CHEMISTRY METHOD 07/09/2024 8:12 AM [facility] Calcium 9.5 8.5 - 10.5 mg/dL LAB CHEMISTRY METHOD 07/09/2024 8:12 AM [facility] Blood Venous blood specimen / Unknown Venipuncture / Unknown 07/09/2024 6:25 AM EST 07/09/2024 7:11 AM EST us Aye HEDRICK LAB BLOOD ORDERABLES Final Re sult [facility] [address] [place] [address], * XR Chest 1 View (07/08/2024 10:00 [...] Signed Date: 07/09/2024 09:03 ET Workstation ID: [id number] Transcribed By: Self Edit Transcribed Date: 07/09/2024 [...] Signed Date: 07/09/2024 09:03 ET Workstation ID: [id number] Transcribed By: Self Edit Transcribed Date: 07/09/2024 09:02 ET Aye HEDRICK IMG XR PROCEDURES Final Resul t * Green LI heparin tube (07/08/2024 9:50 PM EST) Extra Tube Hold for add-ons. 07/09/2024 12:01 AM EST [facility] Comment:Auto resulted. Blood Venous blood specimen / Unknown 07/08/2024 9:50 PM EST 07/08/2024 10:41 PM EST Wayne Donahue MD LAB BLOOD ORDERABLES Final Re sult Performing Organization Address [facility] Co de Phone Number [facility] [address] [place] [address], [place] [phone] * Culture blood (07/08/2024 9:49 PM EST) Culture, Blood No growth at 5 days 07/13/2024 10:01 PM EST [facility] Blood Venous blood specimen / Unknown Venipuncture / Unknown 07/08/2024 9:49 PM EST 07/08/2024 9:54 PM EST Aye HEDRICK LAB MICROBIOLOGY - GENERAL OR DERABLES Final Result Performing Organization Address [facility] Co de Phone Number [facility] [address] [place] [address], [place] [phone] * Lactate (07/08/2024 9:42 PM EST) Lactate 1.3 mmol/L 07/08/2024 10:30 PM EST [facility] Blood Venous blood specimen / Unknown Venipuncture / Unknown 07/08/2024 9:42 PM EST 07/08/2024 9:54 PM EST Aye HEDRICK LAB BLOOD ORDERABLES Final Re sult Performing Organization Address [facility] Co de Phone Number [facility] [address] [place] [address], [place] [phone] * Culture blood (07/08/2024 9:37 PM EST) Culture, Blood No growth at 5 days 07/13/2024 10:01 PM EST [facility] Blood Venous blood specimen / Unknown Venipuncture / Unknown 07/08/2024 9:37 PM EST 07/08/2024 9:56 PM EST Aye HEDRICK LAB MICROBIOLOGY - GENERAL OR DERABLES Final Result [facility] [address] [place] [address], [place] [phone] * (ABNORMAL) POCT Glucose, blood (07/08/2024 8:46 PM EST) [facility] Glucose POCT 264(H) 70 - 100 mg/dL 07/08/2024 8:46 PM EST [facility] Blood Capillary blood specimen / Unknown 07/08/2024 8:46 PM EST 07/08/2024 8:47 PM EST Wayne Donahue MD LAB POINT OF CARE TE ST DOCKED DEVICE UNSOLICITED RESULTS Final Result Performing Organization Address [facility]/ZIP Co de Phone Number [facility] [address] [place] [address], [place] [phone] * (ABNORMAL) Basic metabolic panel (07/08/2024 8:30 PM EST) [facility] Sodium 130(L) 133 - 145 mmol/L LAB CHEMISTRY METHOD 07/08/2024 11:37 PM [facility] Potassium 4.0 3.5 - 5.5 mmol/L LAB CHEMISTRY METHOD 07/08/2024 11:37 PM [facility] Chloride 98 96 - 110 mmol/L LAB CHEMISTRY METHOD 07/08/2024 11:37 PM [facility] CO2 22 21 - 32 mmol/L LAB CHEMISTRY METHOD 07/08/2024 11:37 PM [facility] Anion Gap 10 3 - 11 LAB CHEMISTRY METHOD 07/08/2024 11:37 PM [facility] Glucose 261(H) 70 - 100 mg/dL LAB CHEMISTRY METHOD 07/08/2024 11:37 PM [facility] BUN 64(H) 5 - 25 mg/dL LAB CHEMISTRY METHOD 07/08/2024 11:37 PM EST [facility] Creatinine 4.32(H) 0.50 - 1.10 mg/dL LAB CHEMISTRY METHOD 07/08/2024 11:37 PM [facility] eGFR 10(L) >=60 mL/min/1. 73m2 LAB CHEMISTRY METHOD 07/08/2024 11:37 PM EST [facility] Comment:Calculation based on the??Chronic Kidney Disease Epidemiology Collaboration (CKD-EPI) equation refit??without adjustment for race. BUN/Creatinine Ratio 14.8 LAB CHEMISTRY METHOD 07/08/2024 11:37 PM [facility] Calcium 10.3 8.5 - 10.5 mg/dL LAB CHEMISTRY METHOD 07/08/2024 11:37 PM [facility] Blood Venous blood specimen / Unknown Venipuncture / Unknown 07/08/2024 8:30 PM EST 07/08/2024 8:37 PM EST us Aye HEDRICK LAB BLOOD ORDERABLES Final Re sult [facility] [address] [place] [address], * (ABNORMAL) Complete blood count (07/08/2024 8:30 PM EST) WBC 20.5(H) 4.8 - 10.8 K/mcL LAB HEMETOLOGY METHOD 07/08/2024 8:56 PM EST [facility] RBC 4.00 3.80 - 4.80 M/mcL LAB HEMETOLOGY METHOD 07/08/2024 8:56 PM [facility] Hemoglobin 9.2(L) 11.5 - 16.0 g/dL LAB HEMETOLOGY METHOD 07/08/2024 8:56 PM [facility] Hematocrit 30.0(L) 35.0 - 47.0 % LAB HEMETOLOGY METHOD 07/08/2024 8:56 PM EST [facility] MCV 75.8(L) 79.0 - 98.0 FL LAB HEMETOLOGY METHOD 07/08/2024 8:56 PM [facility] MCH 23.2(L) 27.0 - 32.0 pcg LAB HEMETOLOGY METHOD 07/08/2024 8:56 PM EST [facility] MCHC 30.7(L) 32.0 - 37.0 g/dL LAB HEMETOLOGY METHOD 07/08/2024 8:56 PM [facility] RDW 19.9(H) 11.0 - 15.0 % LAB HEMETOLOGY METHOD 07/08/2024 8:56 PM [facility] Platelets 332 130 - 400 K/mcL LAB HEMETOLOGY METHOD 07/08/2024 8:56 PM EST [facility] MPV 8.6 7.0 - 11.0 FL LAB HEMETOLOGY METHOD 07/08/2024 8:56 PM EST [facility] NRBC 0.0 <1.0 % LAB HEMETOLOGY METHOD 07/08/2024 8:56 PM [facility] NRBC Absolute 0.00 <0.10 K/mcL LAB HEMETOLOGY METHOD 07/08/2024 8:56 PM [facility] Blood Venous blood specimen / Unknown Venipuncture / Unknown 07/08/2024 8:30 PM EST 07/08/2024 8:37 PM EST us Aye HEDRICK LAB BLOOD ORDERABLES Final Re sult [facility] [address] [place] [address], * (ABNORMAL) Electrolyte panel (07/08/2024 8:30 PM [...] 11 LAB CHEMISTRY METHOD 07/08/2024 11:37 PM [facility] Blood Venous blood specimen / Unknown Venipuncture / Unknown 07/08/2024 8:30 PM EST 07/08/2024 8:37 PM EST us Aye HEDRICK LAB BLOOD ORDERABLES Final Re sult [facility] [address] [place] [address], [place] [phone] * Transfuse RBC (07/08/2024 6:45 PM EST) [...] UNSOLICITED RESULTS Final Result Performing Organization Address [facility] Co de Phone Number [facility] [address] [place] [address], [place] [phone] * PATHOLOGIST REVIEW PROTEIN ELECTROPHORESIS (07/08/2024 5:52 PM EST) [facility] Pathologist Interpretation Reviewed by Rosenda Galeana MD 07/14/2024 9:21 AM EST [facility] Blood Venous blood specimen / Unknown Venipuncture / Unknown 07/08/2024 5:52 PM EST 07/08/2024 6:00 PM EST Aye HEDRICK LAB BLOOD ORDERABLES Final Re sult Performing Organization Address [facility] Co de Phone Number [facility] [address] [place] [address], [place] [phone] * Protein, total (07/08/2024 5:52 PM EST) [facility] Total Protein 6.4 6.0 - 8.0 g/dL LAB CHEMISTRY METHOD 07/08/2024 6:30 PM EST [facility] Blood Venous blood specimen / Unknown Venipuncture / Unknown 07/08/2024 5:52 PM EST 07/08/2024 6:00 PM EST Aye HEDRICK LAB BLOOD ORDERABLES Final Re sult Performing Organization Address [facility]/ZIP Co de Phone Number [facility] [address] [place] [address], [place] [phone] * (ABNORMAL) Basic metabolic panel (07/08/2024 5:52 PM EST) [facility] Sodium 128(L) 133 - 145 mmol/L LAB CHEMISTRY METHOD 07/08/2024 6:50 PM [facility] Potassium 4.0 3.5 - 5.5 mmol/L LAB CHEMISTRY METHOD 07/08/2024 6:50 PM [facility] Chloride 96 96 - 110 mmol/L LAB CHEMISTRY METHOD 07/08/2024 6:50 PM [facility] CO2 25 21 - 32 mmol/L LAB CHEMISTRY METHOD 07/08/2024 6:50 PM [facility] Anion Gap 7 3 - 11 LAB CHEMISTRY METHOD 07/08/2024 6:50 PM [facility] Glucose 259(H) 70 - 100 mg/dL LAB CHEMISTRY METHOD 07/08/2024 6:50 PM [facility] BUN 67(H) 5 - 25 mg/dL LAB CHEMISTRY METHOD 07/08/2024 6:50 PM [facility] Creatinine 4.12(H) 0.50 - 1.10 mg/dL LAB CHEMISTRY METHOD 07/08/2024 6:50 PM [facility] eGFR 10(L) >=60 mL/min/1. 73m2 LAB CHEMISTRY METHOD 07/08/2024 6:50 PM [facility] Comment:Calculation based on the??Chronic Kidney Disease Epidemiology Collaboration (CKD-EPI) equation refit??without adjustment for race. BUN/Creatinine Ratio 16.3 LAB CHEMISTRY METHOD 07/08/2024 6:50 PM [facility] Calcium 10.8(H) 8.5 - 10.5 mg/dL LAB CHEMISTRY METHOD 07/08/2024 6:50 PM [facility] Blood Venous blood specimen / Unknown Venipuncture / Unknown 07/08/2024 5:52 PM EST 07/08/2024 6:00 PM EST us Aye HEDRICK LAB BLOOD ORDERABLES Final Re sult [facility] [address] [place] [address], [place] [phone] * (ABNORMAL) Serum albumin (07/08/2024 5:52 PM EST) Albumin 2.1(L) 3.2 - 5.0 g/dL LAB CHEMISTRY METHOD 07/08/2024 6:34 PM EST [facility] Blood Venous blood specimen / Unknown Venipuncture / Unknown 07/08/2024 5:52 PM EST 07/08/2024 6:00 PM EST Aye HEDRICK LAB BLOOD ORDERABLES Final Re sult Performing Organization Address City/[facility] Co de Phone Number [facility] [address] [place] [address], [place] [phone] * (ABNORMAL) Electrolyte panel (07/08/2024 5:52 PM EST) [facility] Sodium 128(L) 133 - 145 mmol/L LAB CHEMISTRY METHOD 07/08/2024 6:34 PM EST [facility] Potassium 4.0 3.5 - 5.5 mmol/L LAB CHEMISTRY METHOD 07/08/2024 6:34 PM [facility] Chloride 96 96 - 110 mmol/L LAB CHEMISTRY METHOD 07/08/2024 6:34 PM [facility] CO2 25 21 - 32 mmol/L LAB CHEMISTRY METHOD 07/08/2024 6:34 PM [facility] Anion Gap 7 3 - 11 LAB CHEMISTRY METHOD 07/08/2024 6:34 PM [facility] Blood Venous blood specimen / Unknown Venipuncture / Unknown 07/08/2024 5:52 PM EST 07/08/2024 6:00 PM EST Aye HEDRICK LAB BLOOD ORDERABLES Final Re sult Performing Organization Address City/[facility]/ZIP Co de Phone Number [facility] [address] [place] [address], [place] [phone] * (ABNORMAL) Protein electrophoresis, serum (07/08/2024 5:52 PM EST) Pathologist [facility] Total Protein 6.4 6.0 - 8.0 g/dL LAB CHEMISTRY METHOD 07/14/2024 9:21 AM EST [facility] Albumin, Serum 2.2(L) 2.9 - 4.1 g/dL LAB CHEMISTRY METHOD 07/14/2024 9:21 AM EST [facility] Alpha 1 Globulin (g/dL) 0.6(H) 0.1 - 0.5 g/dL LAB CHEMISTRY METHOD 07/14/2024 9:21 AM [facility] Alpha 2 Globulin (g/dL) 1.2 0.7 - 1.5 g/dL LAB CHEMISTRY METHOD 07/14/2024 9:21 AM [facility] Beta (g/dL) 1.0 0.7 - 1.5 g/dL LAB CHEMISTRY METHOD 07/14/2024 9:21 AM [facility] Gamma Globulin (g/dL) 1.5 0.7 - 1.9 g/dL LAB CHEMISTRY METHOD 07/14/2024 9:21 AM [facility] SPEP Interpretation Hypoalbuminem ia, suggestive of malnutrition, decreased hepatic synthesis or renal/GI loss Elevated alpha-1 fraction, suggestive of acute or or chronic inflammation. LAB CHEMISTRY METHOD 07/14/2024 9:21 AM [facility] Blood Venous blood specimen / Unknown Venipuncture / Unknown 07/08/2024 5:52 PM EST 07/08/2024 6:00 PM EST us Aye HEDRICK LAB BLOOD ORDERABLES Final Re robson [facility] [address] [place] [address], [place] [phone] * US Retroperitoneal Complete (07/08/2024 4:30 PM EST) Anatomical Region Laterality Modality Body Ultrasound 07/10/2024 2:07 PM EST Impressions 07/10/2024 2:08 PM EST Normal appearance of the kidneys. -------- FINAL REPORT -------- Dictated By: Primo Dee Dictated Date: 07/10/2024 14:07 ET Assigned Physician: Primo Dee Reviewed and Electronically Signed By: Primo Dee Signed Date: 07/10/2024 14:08 ET Workstation ID: [id number] Transcribed By: Self Edit Transcribed Date: 07/10/2024 [...] Signed Date: 07/10/2024 14:08 ET Workstation ID: [id number] Transcribed By: Self Edit Transcribed Date: 07/10/2024 14:07 ET Aye HEDRICK [facility] US PROCEDURES Final Resul t [...] Detected LAB MICROBIOLOGY METHOD 07/08/2024 4:18 PM [facility] Coronavirus 229E Not Detected Not Detected LAB MICROBIOLOGY METHOD 07/08/2024 4:18 PM [facility] Coronavirus HKU1 Not Detected Not Detected LAB MICROBIOLOGY METHOD 07/08/2024 4:18 PM [facility] Coronavirus OC43 Not Detected Not Detected LAB MICROBIOLOGY METHOD 07/08/2024 4:18 PM [facility] Coronavirus NL63 Not Detected Not Detected LAB MICROBIOLOGY METHOD 07/08/2024 4:18 PM [facility] Parainfluenza Virus 1 Not Detected Not Detected LAB MICROBIOLOGY METHOD 07/08/2024 4:18 PM [facility] Parainfluenza Virus 2 Not Detected Not Detected LAB MICROBIOLOGY METHOD 07/08/2024 4:18 PM [facility] Parainfluenza Virus 3 Not Detected Not Detected LAB MICROBIOLOGY METHOD 07/08/2024 4:18 PM [facility] Parainfluenza Virus 4 Not Detected Not Detected LAB MICROBIOLOGY METHOD 07/08/2024 4:18 PM [facility] RSV PCR Not Detected Not Detected LAB MICROBIOLOGY METHOD 07/08/2024 4:18 PM [facility] Human Metapneumovirus A and [...] 2:59 PM EST 07/08/2024 3:15 PM EST [facility] - 07/08/2024 4:18 PM EST Testing was performed using the [employer]ide[employer] Respiratory Pathogen PCR Assay. All results must [...] Final Result [facility] [address] [place] [address], * XR Chest 2 Views (07/08/2024 2:01 PM EST) Anatomical Region Laterality Modality Body Radiographic Jennifer ging 07/08/2024 2:06 PM EST Impressions 07/08/2024 2:07 PM EST No acute findings. -------- FINAL REPORT -------- Dictated By: Henrique Bray Dictated Date: 07/08/2024 14:06 ET Assigned Physician: Henrique Bray Reviewed and Electronically Signed By: Henrique Bray Signed Date: 07/08/2024 14:07 ET Workstation ID: [id number] Transcribed By: Self Edit Transcribed Date: 07/08/2024 [...] Signed Date: 07/08/2024 14:07 ET Workstation ID: [id number] Transcribed By: Self Edit Transcribed Date: 07/08/2024 [...] OR DERABLES Final Result Performing Organization Address [facility]/ZIP Co de Phone Number [facility] [address] [place] [address], [place] [phone] * (ABNORMAL) Troponin I high sensitivity (07/08/2024 1:18 PM EST) [facility] High Sensitivity Troponin I 81(H) <=54 ng/L [...] ORDERABLES [place] l Result Performing Organization Address City/[facility]/ZIP Co de Phone Number [facility] [address] [place] [address], [place] [phone] * Prepare RBC: 1 Units (07/08/2024 1:17 PM EST) [facility] Product Code [id number] 07/08/2024 4:13 PM [facility] Unit Number [id number] 07/08/19 4:13 PM [facility] Crossmatch Compatible 07/08/2024 2:53 PM [facility] Dispense Status Transfused 07/08/2024 4:13 PM [facility] Unit ABO Rh OPOS 07/08/2024 4:13 PM [facility] Unit Expiration Date Time [id number] 07/08/2024 4:13 PM [facility] Unit Blood Type 5100 07/08/2024 4:13 PM [facility] Blood Venous blood specimen / Unknown 07/08/2024 1:17 PM EST 06/17/2024 10:17 AM EST Raya HEDRICK BLOOD BANK PRODUCT ORD ERABLES Final Result Performing Organization Address City/[facility]/ZIP Co de Phone Number [facility] [address] [place] [address], * Culture urine (07/08/2024 12:59 PM EST) Pathologist [facility] Culture, Urine No growth 07/09/2024 10:44 AM [facility] Urine Urine specimen obtained by clean catch procedure / Unknown Non-blood Collection / Unknown 07/08/2024 12:59 PM EST 07/08/2024 1:21 PM EST Jj Wolfe MD LAB MICROBIOLOGY - GENERA L ORDERABLES Final Result [facility] [address] [place] [address], [place] [phone] * Robertson urine culture tube (07/08/2024 12:59 PM EST) Extra Tube Hold for add-ons. 07/08/2024 3:02 PM [facility] Comment:Auto resulted. Urine Urine specimen obtained by clean catch procedure / Unknown Non-blood Collection / Unknown 07/08/2024 12:59 PM EST 07/08/2024 1:11 PM EST Jj Wolfe MD LAB URINE ORDERABLES America l Result [facility] [address] [place] [address], [place] [phone] * (ABNORMAL) Urinalysis with reflex microscopic and culture (07/08/2024 12:59 PM EST) [facility] Specific Arnold Urine 1.020 1.003 - 1.030 LAB URINALYSIS - AUTOMATED METHOD 07/08/2024 1:21 PM [facility] pH, Urine 5.5 5.0 - 8.0 pH LAB URINALYSIS - AUTOMATED METHOD 07/08/2024 1:21 PM [facility] Leukocytes, Urine Negative Negative LAB URINALYSIS - AUTOMATED METHOD 07/08/2024 1:21 PM [facility] Nitrite, Urine Negative Negative LAB URINALYSIS - AUTOMATED METHOD 07/08/2024 1:21 PM [facility] Protein, Urine 100(A) <=Trace mg/dL LAB URINALYSIS - AUTOMATED METHOD 07/08/2024 1:21 PM [facility] Glucose, Urine 500(A) Negative mg/dL LAB URINALYSIS - AUTOMATED METHOD 07/08/2024 1:21 PM [facility] Ketones, Urine Negative Negative mg/dL LAB URINALYSIS - AUTOMATED METHOD 07/08/2024 1:21 PM [facility] Urobilinogen, Urine 0.2 0.2 - 1.0 mg/dL LAB URINALYSIS - AUTOMATED METHOD 07/08/2024 1:21 PM [facility] Bilirubin, Urine Negative Negative LAB URINALYSIS - AUTOMATED METHOD 07/08/2024 1:21 PM [facility] Blood, Urine Large(A) Negative LAB URINALYSIS - AUTOMATED METHOD 07/08/2024 1:21 PM [facility] RBC, Urine 21.6(H) 0 - 4 /HPF LAB URINALYSIS - AUTOMATED METHOD 07/08/2024 1:21 PM [facility] WBC, Urine 7.3(H) 0 - 4 /HPF LAB URINALYSIS - AUTOMATED METHOD 07/08/2024 1:21 PM [facility] Squamous Epithelial, Urine 30 0 - 60 /LPF LAB URINALYSIS - AUTOMATED METHOD 07/08/2024 1:21 PM [facility] Bacteria, Urine Negative Negative /HPF LAB URINALYSIS - AUTOMATED METHOD 07/08/2024 1:21 PM [facility] Hyaline Casts, Urine 1.7 0 - 3 /LPF LAB URINALYSIS - AUTOMATED METHOD 07/08/2024 1:21 PM [facility] Urine Urine specimen obtained by clean catch procedure / Unknown Non-blood Collection / Unknown 07/08/2024 12:59 PM EST 07/08/2024 1:11 PM EST Jj Wolfe MD LAB URINE ORDERABLES [place] dominguez Result [facility] [address] [place] [address], [place] [phone] * CT Head wo Contrast (07/08/2024 12:11 [...] Signed Date: 07/08/2024 12:23 ET Workstation ID: [id number] Transcribed By: Self Edit Transcribed Date: 07/08/2024 [...] Signed Date: 07/08/2024 12:23 ET Workstation ID: [id number] Transcribed By: Self Edit Transcribed Date: 07/08/2024 [...] Signed Date: 07/08/2024 12:27 ET Workstation ID: [id number] Transcribed By: Self Edit Transcribed Date: 07/08/2024 [...] Signed Date: 07/08/2024 12:27 ET Workstation ID: [id number] Transcribed By: Self Edit Transcribed Date: 07/08/2024 [...] Re sult [facility] [address] [place] [address], * (ABNORMAL) Iron and TIBC (07/08/2024 11:10 AM EST) Iron 20(L) 40 - 150 mcg/dL LAB CHEMISTRY METHOD 07/08/2024 3:44 PM EST [facility] Comment:Hemolysis present TIBC 186(L) 250 - 450 mcg/dL LAB CHEMISTRY METHOD 07/08/2024 3:44 PM EST [facility] Iron Saturation 11(L) 15 - 50 % LAB CHEMISTRY METHOD 07/08/2024 3:44 PM [facility] Blood Venous blood specimen / Unknown Venipuncture / Unknown 07/08/2024 11:10 AM EST 07/08/2024 11:42 AM EST us Wayne Donahue MD LAB BLOOD ORDERABLES Final Re sult Performing Organization Address City/[facility]/ZIP Co de Phone Number [facility] [address] [place] [address], [place] [phone] * (ABNORMAL) Ferritin (07/08/2024 11:10 AM EST) Ferritin 708(H) 8 - 252 ng/mL LAB CHEMISTRY METHOD 07/08/2024 3:51 PM [facility] Blood Venous blood specimen / Unknown Venipuncture / Unknown 07/08/2024 11:10 AM EST 07/08/2024 11:42 AM EST us Wayne Donahue MD LAB BLOOD ORDERABLES Final Re sult Performing Organization Address City/[facility]/ZIP Co de Phone Number [facility] [address] [place] [address], [place] [phone] * (ABNORMAL) Reticulocyte count (07/08/2024 11:10 AM EST) Retic Ct Abs 0.050 0.030 - 0.090 M/mcL LAB HEMETOLOGY METHOD 07/08/2024 2:52 PM [facility] [...] ORDERABLES Final Re sult Performing Organization Address City/[facility]/ZIP Co de Phone Number [facility] [address] [place] [address], [place] [phone] * (ABNORMAL) Haptoglobin (07/08/2024 11:10 AM EST) Haptoglobin 570(H) 16 - 200 mg/dL LAB CHEMISTRY METHOD 07/08/2024 3:44 PM EST [facility] Blood Venous blood specimen / Unknown Venipuncture / Unknown 07/08/2024 11:10 AM EST 07/08/2024 11:42 AM EST us Wayne Donahue MD LAB BLOOD ORDERABLES Final Re sult Performing Organization Address City/[facility]/ZIP Co de Phone Number [facility] [address] [place] [address], [place] [phone] * (ABNORMAL) Folate (07/08/2024 11:10 AM EST) Folate >20.0(H) 2.8 - 17.0 ng/ml LAB CHEMISTRY METHOD 07/08/2024 3:51 PM EST [facility] Blood Venous blood specimen / Unknown Venipuncture / Unknown 07/08/2024 11:10 AM EST 07/08/2024 11:42 AM EST us Wayne Donahue MD LAB BLOOD ORDERABLES Final Re sult Performing Organization Address City/[facility]/ZIP Co de Phone Number [facility] [address] [place] [address], [place] [phone] * Vitamin B12 (07/08/2024 11:10 AM EST) Vitamin B-12 384 250 - 900 pcg/mL LAB CHEMISTRY METHOD 07/08/2024 3:51 PM EST [facility] Blood Venous blood specimen / Unknown Venipuncture / Unknown 07/08/2024 11:10 AM EST 07/08/2024 11:42 AM EST us Wayne Donahue MD LAB BLOOD ORDERABLES Final Re sult Performing Organization Address [facility]/ZIP Co de Phone Number [facility] [address] [place] [address], [place] [phone] * Cortisol (07/08/2024 11:10 AM EST) Cortisol [...] ORDERABLES Final Re sult Performing Organization Address [facility]/ZIP Co de Phone Number [facility] [address] [place] [address], [place] [phone] * (ABNORMAL) Thyroid stimulating hormone (07/08/2024 11:10 AM EST) TSH 4.50(H) 0.40 - 4.00 mcIU/mL LAB CHEMISTRY METHOD 07/08/2024 3:31 PM EST [facility] Blood Venous blood specimen / Unknown Venipuncture / Unknown 07/08/2024 11:10 AM EST 07/08/2024 11:42 AM EST us Wayne Donahue MD LAB BLOOD ORDERABLES Final Re sult [facility] [address] [place] [address], [place] [phone] * Uric acid (07/08/2024 11:10 AM EST) Pathologist [facility] Uric Acid 7.2 3.1 - 7.8 mg/dL LAB CHEMISTRY METHOD 07/08/2024 3:44 PM EST [facility] Blood Venous blood specimen / Unknown Venipuncture / Unknown 07/08/2024 11:10 AM EST 07/08/2024 11:42 AM EST us Wayne Donhaue MD LAB BLOOD ORDERABLES Final Re sult [facility] [address] [place] [address], [place] [phone] * (ABNORMAL) Osmolality (07/08/2024 11:10 AM EST) Osmolality Iván 307(H) 280 - 300 mOsm/kg LAB CHEMISTRY METHOD 07/08/2024 6:51 PM EST [facility] Blood Venous blood specimen / Unknown Venipuncture / Unknown 07/08/2024 11:10 AM EST 07/08/2024 11:42 AM EST us Wayne Donahue MD LAB BLOOD ORDERABLES Final Re sult Performing Organization Address City/[facility]/ZIP Co de Phone Number [facility] [address] [place] [address], [place] [phone] * (ABNORMAL) Parathyroid hormone intact (07/08/2024 11:10 AM EST) PTH 6.5(L) 18.5 - 88.0 pcg/mL LAB CHEMISTRY METHOD 07/08/2024 3:31 PM EST [facility] Blood Venous blood specimen / Unknown Venipuncture / Unknown 07/08/2024 11:10 AM EST 07/08/2024 11:42 AM EST Wayne Donahue MD LAB BLOOD ORDERABLES Final Re sult Performing Organization Address [facility]/ZIP Co de Phone Number [facility] [address] [place] [address], [place] [phone] * (ABNORMAL) CBC auto differential (07/08/2024 11:10 AM EST) [facility] WBC 18.9(H) 4.8 - 10.8 K/mcL LAB HEMETOLOGY METHOD 07/08/2024 11:51 AM [facility] RBC 3.30(L) 3.80 - 4.80 M/mcL LAB HEMETOLOGY METHOD 07/08/2024 11:51 AM [facility] Hemoglobin 7.3(L) 11.5 - 16.0 g/dL LAB HEMETOLOGY METHOD 07/08/2024 11:51 AM [facility] Hematocrit 23.7(L) 35.0 - 47.0 % LAB HEMETOLOGY METHOD 07/08/2024 11:51 AM [facility] MCV 72.3(L) 79.0 - 98.0 FL LAB HEMETOLOGY METHOD 07/08/2024 11:51 AM [facility] MCH 22.3(L) 27.0 - 32.0 pcg LAB HEMETOLOGY METHOD 07/08/2024 11:51 AM [facility] MCHC 30.8(L) 32.0 - 37.0 g/dL LAB HEMETOLOGY METHOD 07/08/2024 11:51 AM [facility] RDW 16.4(H) 11.0 - 15.0 % LAB HEMETOLOGY METHOD 07/08/2024 11:51 AM [facility] Platelets 408(H) 130 - 400 K/mcL LAB HEMETOLOGY METHOD 07/08/2024 11:51 AM [facility] MPV 8.9 7.0 - 11.0 FL LAB HEMETOLOGY METHOD 07/08/2024 11:51 AM [facility] NRBC 0.0 <1.0 % LAB HEMETOLOGY METHOD 07/08/2024 11:51 AM [facility] NRBC Absolute 0.00 <0.10 K/mcL LAB HEMETOLOGY METHOD 07/08/2024 11:51 AM [facility] Neutrophils Relative 89.5 % LAB HEMETOLOGY METHOD 07/08/2024 11:51 AM [facility] Lymphocytes Relative 2.4 % LAB HEMETOLOGY METHOD 07/08/2024 11:51 AM [facility] Monocytes Relative 7.0 % LAB HEMETOLOGY METHOD 07/08/2024 11:51 AM [facility] Eosinophils Relative 0.2 % LAB HEMETOLOGY METHOD 07/08/2024 11:51 AM [facility] Basophils Relative 0.2 % LAB HEMETOLOGY METHOD 07/08/2024 11:51 AM [facility] Immature Granulocytes Relative 0.7 % LAB HEMETOLOGY METHOD 07/08/2024 11:51 AM [facility] Neutrophils Absolute 16.86(H) 1.50 - 7.00 K/mcL LAB HEMETOLOGY METHOD 07/08/2024 11:51 AM EST [facility] Lymphocytes Absolute 0.46(L) 1.00 - 5.00 K/mcL LAB HEMETOLOGY METHOD 07/08/2024 11:51 AM [facility] Monocytes Absolute 1.32(H) 0.20 - 1.00 K/mcL LAB HEMETOLOGY METHOD 07/08/2024 11:51 AM EST [facility] Eosinophils Absolute 0.04 0.00 - 0.50 K/[facility] LAB HEMETOLOGY METHOD 07/08/2024 11:51 AM EST [facility] Basophils Absolute 0.04 0.00 - 0.20 K/mcL LAB HEMETOLOGY METHOD 07/08/2024 11:51 AM [facility] Immature Granulocytes Absolute 0.13(H) 0.00 - 0.03 K/mcL LAB HEMETOLOGY METHOD 07/08/2024 11:51 AM EST [facility] Blood Venous blood specimen / Unknown Venipuncture / Unknown 07/08/2024 11:10 AM EST 07/08/2024 11:42 AM EST Jj Wolfe MD LAB BLOOD ORDERABLES [place] l Result [facility] [address] [place] [address], * B-type natriuretic peptide (07/08/2024 11:10 AM EST) BNP 86 <=100 pcg/mL LAB CHEMISTRY METHOD 07/08/2024 12:26 PM EST [facility] Blood Venous blood specimen / Unknown Venipuncture / Unknown 07/08/2024 11:10 AM EST 07/08/2024 11:42 AM EST Jj Wolfe MD LAB BLOOD ORDERABLES America l Result [facility] [address] [place] [address], [place] [phone] * Magnesium (07/08/2024 11:10 AM EST) Magnesium 2.1 1.9 - 2.6 mg/dL LAB CHEMISTRY METHOD 07/08/2024 12:54 PM EST [facility] Comment:Hemolysis present Blood Venous blood specimen / Unknown Venipuncture / Unknown 07/08/2024 11:10 AM EST 07/08/2024 11:42 AM EST Jj Wolfe MD LAB BLOOD ORDERABLES America l Result Performing Organization Address City/[facility]/ZIP Co de Phone Number [facility] [address] [place] [address], [place] [phone] * (ABNORMAL) Lipase (07/08/2024 11:10 AM EST) Pathologist [facility] Lipase <10(L) 13 - 75 unit/L LAB CHEMISTRY METHOD 07/08/2024 12:54 PM EST [facility] Blood Venous blood specimen / Unknown Venipuncture / Unknown 07/08/2024 11:10 AM EST 07/08/2024 11:42 AM EST Jj Wolfe MD LAB BLOOD ORDERABLES America l Result [facility] [address] [place] [address], [place] [phone] * (ABNORMAL) Comprehensive metabolic panel (07/08/2024 11:10 AM EST) Sodium 126(L) 133 - 145 mmol/L LAB CHEMISTRY METHOD 07/08/2024 12:54 PM EST [facility] Potassium 4.2 3.5 - 5.5 mmol/L LAB CHEMISTRY METHOD 07/08/2024 12:54 PM [facility] Comment:Hemolysis present Chloride 93(L) 96 - 110 mmol/L LAB CHEMISTRY METHOD 07/08/2024 12:54 PM [facility] CO2 21 21 - 32 mmol/L LAB CHEMISTRY METHOD 07/08/2024 12:54 PM [facility] Anion Gap 12(H) 3 - 11 LAB CHEMISTRY METHOD 07/08/2024 12:54 PM [facility] Glucose 265(H) 70 - 100 mg/dL LAB CHEMISTRY METHOD 07/08/2024 12:54 PM [facility] BUN 59(H) 5 - 25 mg/dL LAB CHEMISTRY METHOD 07/08/2024 12:54 PM [facility] Comment:Results verified by repeat testing Creatinine 4.10(H) 0.50 - 1.10 mg/dL LAB CHEMISTRY METHOD 07/08/2024 12:54 PM [facility] Comment:Results verified by repeat testing eGFR 10(L) >=60 mL/min/1. 73m2 LAB CHEMISTRY METHOD 07/08/2024 12:54 PM [facility] Comment:Calculation based on the??Chronic Kidney Disease Epidemiology Collaboration (CKD-EPI) equation refit??without adjustment for race. BUN/Creatinine Ratio 14.4 LAB CHEMISTRY METHOD 07/08/2024 12:54 PM [facility] Calcium 10.6(H) 8.5 - 10.5 mg/dL LAB CHEMISTRY METHOD 07/08/2024 12:54 PM [facility] AST (SGOT) 57(H) 10 - 42 unit/L LAB CHEMISTRY METHOD 07/08/2024 12:54 PM [facility] Comment:Hemolysis present ALT (SGPT) 39 10 - 60 unit/L LAB CHEMISTRY METHOD 07/08/2024 12:54 PM [facility] Alkaline Phosphatase 149(H) 42 [...] ORDERABLES America l Result Performing Organization Address City/State/[facility] Co de Phone Number [facility] [address] [place] [address], [place] [phone] * (ABNORMAL) Troponin I high sensitivity (07/08/2024 11:10 AM EST) Pathologist [facility] High Sensitivity Troponin I 80(H) <=54 [...] ORDERABLES America l Result Performing Organization Address City/[facility]/ZIP Co de Phone Number [facility] [address] [place] [address], * ECG 12 lead (07/08/2024 10:46 AM EST) Ventricular Rate ECG 94 BPM GEMUSE Atrial Rate 94 BPM GEMUSE P-R Interval 196 ms GEMUSE QRS Duration 118 ms GEMUSE Q-T Interval 354 ms GEMUSE QTc 442 ms GEMUSE P Wave [place] 79 degrees GEMUSE R [place] 15 degrees GEMUSE T [place] 4 degrees GEMUSE ECG Interpretation Sinus rhythm [...] ECG ORDERABLES Final Result Performing Organization Address City/[facility] Co de Phone Number GEMUSE * ECG-Outside [...] Transfer Provider - Reason: Patient not available)1424 ([facility] Unhold - Provider: Automatic Transfer [...] Davidson RN - Reason: Patient not available)1145 ([facility] Hold - Provider: Automatic Transfer [...] unresolved -Administer with 8L of oxygen 1145 ([facility] Hold - Provider: Automatic Transfer Provider - Reason: Patient not available)1424 ([facility] Unhold - Provider: Automatic Transfer Provider) benzonatate (TESSALON) capsule 100 mg 100 mg, oral, 3 times daily PRN, cough, Starting on Thu07/15/24 at 0957, Cough Do not crush or chew., Indications: cough 1145 ([facility] Hold - Provider: Automatic Transfer Provider - Reason: Patient not available)142 ([facility] Unhold - Provider: Automatic Transfer Provider) dextrose (D50W) 50% injection 12.5 g 12.5 g, intravenous, Every 15 min PRN, low blood sugar, moderate hypoglycemia *Patient is Unconscious, NPO, unable to swallow: BG 54 - 69 mg/dl*, Starting on Thu07/08/24 at 1649 1145 ([facility] Hold - Provider: Automatic Transfer Provider - Reason: Patient not available)142 ([facility] Unhold - Provider: Automatic Transfer Provider) dextrose (D50W) 50% injection 25 g 25 g, intravenous, Every 15 min PRN, low blood sugar, severe hypoglycemia *Patient is Unconscious, NPO, unable to swallow: BG LESS than 54 mg/dL*, Starting on Thu07/08/24 at 1649 1145 ([facility] Hold - Provider: Automatic Transfer Provider - Reason: Patient not available)142 ([facility] Unhold - Provider: Automatic Transfer Provider) dextrose 15 gram/60 mL oral solution 15 g 15 g, oral, Every 15 min PRN, low blood sugar, hypoglycemia *Patient conscious AND able to drink and swallow safely*, Starting on Thu07/08/24 at 1649 1145 ([facility] Hold - Provider: Automatic Transfer Provider - Reason: Patient not available)142 ([facility] Unhold - Provider: Automatic Transfer Provider) dextrose 15 gram/60 mL oral solution 30 g 30 g, oral, Every 15 min PRN, low blood sugar, hypoglycemia *Patient conscious AND able to drink and swallow safely*, Starting on Thu07/08/24 at 1649 1145 ([facility] Hold - Provider: Automatic Transfer Provider - Reason: Patient not available)1424 ([facility] Unhold - Provider: Automatic Transfer [...] years of age, or with asthma 1145 ([facility] Hold - Provider: Automatic Transfer Provider - Reason: Patient not available)1424 ([facility] Unhold - Provider: Automatic Transfer [...] years of age, or with asthma 1145 ([facility] Hold - Provider: Automatic Transfer Provider - Reason: Patient not available)1424 ([facility] Unhold - Provider: Automatic Transfer Provider) EPINEPHrine (ADRENALIN) IM Kit - adult 0.3 mg 0.3 mg, intramuscular, Every 15 min PRN, anaphylaxis, For systolic BP LESS than 90 mmHg, Starting on Soco 07/28/24 at 1140, For 3 doses, May repeat every 15 minutes as needed for a maximum of 3 doses 1145 ([facility] Hold - Provider: Automatic Transfer Provider - Reason: Patient not available)1424 ([facility] Unhold - Provider: Automatic Transfer [...] push over at least 2 minutes 1145 ([facility] Hold - Provider: Automatic Transfer Provider - Reason: Patient not available)1424 ([facility] Unhold - Provider: Automatic Transfer Provider) Glucagon HCl (rDNA) injection 1 mg 1 mg, intramuscular, Once as needed, low blood sugar, severe hypoglycemia, Starting on Thu07/08/24 at 1649, For 1 dose 1145 ([facility] Hold - Provider: Automatic Transfer Provider - Reason: Patient not available)1424 ([facility] Unhold - Provider: Automatic Transfer Provider) hydrALAZINE (APRESOLINE) injection 10 mg 10 mg, intravenous, Every 6 hours PRN, systolic BP greater than:, SBP>160, Starting on 07/09/24 at 1504 1145 ([facility] Hold - Provider: Automatic Transfer Provider - Reason: Patient not available)1424 ([facility] Unhold - Provider: Automatic Transfer [...] -Generalized rash Administer over 2 minutes 1145 ([facility] Hold - Provider: Automatic Transfer Provider - Reason: Patient not available)1424 ([facility] Unhold - Provider: Automatic Transfer Provider) HYDROmorphone (PF) injection 0.5 mg 0.5 mg, intravenous, Every 3 hours PRN, severe pain or when therapies for moderate pain were not effective, Starting on Thu07/08/24 at 1437 1145 ([facility] Hold - Provider: Automatic Transfer Provider - Reason: Patient not available)1424 ([facility] Unhold - Provider: Automatic Transfer [...] up to 10 doses (0.4 mg) 1145 ([facility] Hold - Provider: Automatic Transfer Provider - Reason: Patient not available)1424 ([facility] Unhold - Provider: Automatic Transfer [...] (Given - Provider: María Hawk, ILIR) 1145 ([facility] Hold - Provider: Automatic Transfer Provider - Reason: Patient not available)1424 ([facility] Unhold - Provider: Automatic Transfer Provider) oxyCODONE (ROXICODONE) immediate release tablet 5 mg 5 mg, oral, Every 4 hours PRN, moderate pain or when therapies for mild pain were not effective, Starting on Thu07/08/24 at 1437 1145 ([facility] Hold - Provider: Automatic Transfer Provider - Reason: Patient not available)1424 ([facility] Unhold - Provider: Automatic Transfer Provider) polyvinyl alcohol-povidone (PF) (ARTIFICIAL TEARS) 1.4-0.6 % ophthalmic solution 2 drop 2 drop, Both Eyes, Every 2 hours PRN, dry eyes, Starting on Thu07/08/24 at 1746 1122 (Given - Provider: Jolene Cardona RN)2101 (Given - Provider: María Hawk RN) 1145 ([facility] Hold - Provider: Automatic Transfer Provider - Reason: Patient not available)1424 ([facility] Unhold - Provider: Automatic Transfer Provider)2123 (Given - Provider: Katina Machuca RN) sodium chloride 0.9 % bolus 500 mL 500 mL, intravenous, at 2,000 mL/hr, Administer over 15 Minutes, Once as needed, for hypotensive management (systolic BP below 90 mmHg), Starting on Soco 07/28/24 at 1140, For 1 dose, Run wide open and await physician orders 1145 ([facility] Hold - Provider: Automatic Transfer Provider - Reason: Patient not available)1424 ([facility] Unhold - Provider: Automatic Transfer Provider) sodium chloride 0.9 % flush 10 mL(Linked Group 1) 10 mL, intravenous, As needed, line care, Starting on Thu07/08/24 at 1437 1145 ([facility] Hold - Provider: Automatic Transfer Provider - Reason: Patient not available)1424 ([facility] Unhold - Provider: Automatic Transfer Provider) sodium chloride 0.9 % flush 10 mL(Linked Group 2) 10 mL, intravenous, As needed, line care, Starting on 07/23/24 at 1617 1145 ([facility] Hold - Provider: Automatic Transfer Provider - Reason: Patient not available)1424 ([facility] Unhold - Provider: Automatic Transfer [...] each new unit of blood administered 1145 ([facility] Hold - Provider: Automatic Transfer Provider - Reason: Patient not available)1424 ([facility] Unhold - Provider: Automatic Transfer [...] each new unit of blood administered 1145 ([facility] Hold - Provider: Automatic Transfer Provider - Reason: Patient not available)1424 ([facility] Unhold - Provider: Automatic Transfer [...] each new unit of blood administered 1145 ([facility] Hold - Provider: Automatic Transfer Provider - Reason: Patient not available)1424 ([facility] Unhold - Provider: Automatic Transfer [...] each new unit of blood administered 1145 ([facility] Hold - Provider: Automatic Transfer Provider - Reason: Patient not available)1424 ([facility] Unhold - Provider: Automatic Transfer [...] 07/08/2024 4:18 PM EST Tuberculosis Rule-Out 08/05/2024 08/05/20242024 7:04 PM EST documented as of this encounter Care Teams Insurance Special Agent Relationship Specialty Start Date End Date Eloisa Vázquez DO [address] [facility] [place] [address] PCP - General 04/12/24 documented as of this encounter
--- OUTSIDE RECORDS SUMMARY | 2024-09-05 07:15 | XMS_ITS | Encounter Summary ---
Author Organization [facility] Address [address] [place] [address] Care Team Providers Care Metal Hanging Supervisor Name Role Phone Eloisa Vázquez DO Primary Care Provider [phone] Reason for Referral * Imaging (Routine) - Authorized Specialty Diagnoses / Procedures Referred By Daksha godoy Referred To Contact Radiology Diagnoses Pulmonary nodule Procedures CT Chest wo Contrast Cecily Montez MD [address] [address] Phone: tel: fax: [facility] [address] [place] [address] Phone: tel: Referral ID Status Reason Start Date Expiration Date V isits Requested Visits Authorized [id number] Authorized 08/15/2024 08/15/2025 1 1 Reason for Visit * Reason Comments Post-op Visit Encounter Details Date Type Department Care Team ([facility] st Contact Info) Description 08/15/2024 1:30 PM EST Office Visit Thoracic Surgery - [place] [address] [facility] [address] [place] [phone] Cecily Montez MD [address] [facility] [address] [place] [address] Pulmonary nodule (Primary Dx); Lung mass Social [...] performed: Navigational bronchoscopy/[facility] procedure was performed: [facility] HPI Ms. Contreras is a 79 y.o. 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 [employer] Family History Problem Relation Name Age of [...] 10:00 AM EDT Office Visit Endocrinology - [place] [address] [place] [address] Kathy Michelle PA [address] [place] [address] 10/06/2024 1:15 PM EDT Office Visit Internal Medicine - [facility] [address] [place] [address] Eloisa Vázquez DO [address] [place] [address] 11/11/2024 11:00 AM EDT Ancillary Procedure [facility] [address] [facility] [address] [place] [phone] 11/14/2024 11:30 AM EDT Appointment [facility] CT Scan [address] [place] [id number] 12/01/2024 10:00 AM EDT Office Visit Thoracic Surgery - [place] [address] [phone] Cecily Montez MD [address] [address] Scheduled Orders Name Type Priority Associated Diagnoses [...] documented as of this encounter Care Teams Metal Hanging Supervisor Relationship Specialty Start Date End Date Eloisa Vázquez DO [address] [place] [address] PCP - General 04/12/24 documented as of this encounter
--- OUTSIDE RECORDS SUMMARY | 2024-09-05 07:15 | XMS_ITS | Encounter Summary ---
Author Organization [facility] Address [address] [place] [address] Care Team Providers Care Design Drafter Chief Name Role Phone Eloisa Vázquez DO Primary Care Provider [phone] Reason for Visit * Reason Comments Follow-up Encounter Details Date Type Department Care Team (Late st Contact Info) Description 08/10/2024 10:00 AM EST Office Visit [facility] Hematology Oncology [address] [place] [phone] Jaime Grimaldo MD [address] [place] [address] Lung mass (Primary Dx); Normocytic anemia; Chronic [...] kidney disease) stage 4, GFR 15-29 ml/min ([facility]) Iron deficiency anemia Impaired renal function Type 2 diabetes mellitus without complication, without long-term current use of insulin ([facility]) Lung mass Pulmonary nodule Past Medical [...] Relation Name Status Father at age 54 [place] Mother at age 93 Osteoporosis, HTN, Arthritis Daughter Alive Healthy Son Alive Healthy Son Alive Healthy Brother at age 62 Brain tumor; lymphoma Brother at age 64 COPD Brother Alive COPD Brother [place] Sister Alive Healthy Sister Alive Healthy Sister [...] to me PLAN: Continue close follow-up with career development associate Patient will be seeing Dr. Navarro Patient will return to office if there is any malignancy diagnosed in her lung Jaime Grimaldo MD documented in this encounter Plan of Treatment Upcoming Encounters Date Type Department Care Team (Late st Contact Info) Description 09/05/2024 10:00 AM EDT Office Visit Endocrinology - [place] [address] [place] [address] Kathy Michelle PA [address] [place] [address] 10/06/2024 1:15 PM EDT Office Visit Internal Medicine - [place] [address] [place] [address] Eloisa Vázquez DO [address] [place] [address] 11/11/2024 11:00 AM EDT Ancillary Procedure [facility] [address] [place] [address] 11/14/2024 11:30 AM EDT Appointment [facility] CT Scan [address] [place] [phone] 12/01/2024 10:00 AM EDT Office Visit Thoracic Surgery - [place] 299 [facility] [address] [place] [phone] Cecily Montez MD [address] [address] documented as of this encounter Visit Diagnoses [...] documented as of this encounter Care Teams Design Drafter Chief Relationship Specialty Start Date End Date Eloisa Vázquez DO [address] [place] [address] PCP - General 04/12/24 documented as of this encounter
--- OUTSIDE RECORDS SUMMARY | 2024-09-05 07:15 | XMS_ITS | Encounter Summary ---
Author Organization [facility] Address [address] [place] [address] Care Team Providers Care Ice Cream Freezer Name Role Phone Marie Vázquezmankamryn CHERY Primary Care Provider [phone] Encounter Details Date Type Department Care Team (Late st Contact Info) Description 08/11/2024 Telephone [facility] [address] [place] [address] 2nd [place] [address] Nalini Clark RN Social History [...] Discussed with Dennise that with mom at [facility] Dialysis treatments being MWF this time. documented in this encounter Plan of Treatment Upcoming Encounters Date Type Department Care Team (Late st Contact Info) Description 09/05/2024 10:00 AM EDT Office Visit Endocrinology - [place] [address] [place] [address] Kathy Michelle PA [address] [place] [address] 10/06/2024 1:15 PM EDT Office Visit Internal Medicine - [facility] [address] [place] [address] Eloisa Vázquez DO [address] [place] [address] 11/11/2024 11:00 AM EDT Ancillary Procedure [facility] [address] [facility] [address] [place] [address] 11/14/2024 11:30 AM EDT Appointment [facility] CT Scan [address] [place] [address] 12/01/2024 10:00 AM EDT Office Visit Thoracic Surgery - [place] [address] [address] Cecily Montez MD [address] [address] documented as of this encounter Visit Diagnoses Not on filedocumented in this encounter Additional Health Concerns Infection Onset Date Last Indicated Resolved Time Tuberculosis Rule-Out 08/05/2024 08/05/20242024 7:04 PM EST documented as of this encounter Care Teams Ice Cream Freezer Relationship Specialty Start Date End Date Eloisa Vázquez DO [address] [place] [address] PCP - General 04/12/24 documented as of this encounter
--- OUTSIDE RECORDS SUMMARY | 2024-09-05 07:15 | XMS_ITS | Encounter Summary ---
Author Organization [facility] [address] Address [address] [place] [address] Care Team Providers Care Gyroscopic Instrument Tester Name Role Phone Marie Vázquezmankamryn CHERY Primary Care Provider [phone] Encounter Details Date Type Department Care Team (Late st Contact Info) Description 04/12/2024 1:41 PM EDT Hospital Encounter TH HISTORIC ENCOUNTERS EASTERN CONVERSION ONLY Jaime Grimaldo MD [address] [place] [id number] Social History Tobacco Use Types Packs/Day Years [...] summerof this year while she was in [place] developed some respiratory infection/COVID, patient also have [...] issues, was seen by a physician in [place] (in urgent care clinic), CT scan of [...] 10:00 AM EDT Office Visit Endocrinology - [place] [address] [place] [address] Kathy Michelle PA [address] [place] [address] 10/06/2024 1:15 PM EDT Office Visit Internal Medicine - [place] [address] [place] [address] Eloisa Vázquez DO [address] [place] [address] 11/11/2024 11:00 AM EDT Ancillary Procedure [facility] [address] [place] [address] [place] [address] 11/14/2024 11:30 AM EDT Appointment [facility] CT Scan [address] [place] [address] 12/01/2024 10:00 AM EDT Office Visit Thoracic Surgery - [place] [address] [facility] [address] [place] [address] Cecily Montez MD [address] [facility] [address] [place] [address] documented as of this encounter Procedures Procedure [...] documented as of this encounter Care Teams Gyroscopic Instrument Tester Relationship Specialty Start Date End Date Eloisa Vázquez DO [address] [place] [address] PCP - General 04/12/24 documented as of this encounter
--- OUTSIDE RECORDS SUMMARY | 2024-09-05 07:15 | XMS_ITS | Encounter Summary ---
Author Organization [facility] Address [address] [address] Phone Care Team Providers Care Brick Grader Name Role Phone Eloisa Vázquez Primary Care Provider [phone] Encounter Details Date Type Department Care Team (Late st Contact Info) Description 08/11/2024 Orders Only [facility] [address] [address] Anthony Norton MD [address] [address] ANCA associated vasculitis (HCC); Acute [...] 2:52 PM EST Anthony Norton MD LAB [id number] SOLICITED RESULTS Final Result Performing Organization Address City/[facility]/ZIP Co de Phone Number [facility] [address] [place] [address] * (ABNORMAL) Glucose, random (08/10/2024 3:00 AM EST) Glucose 232(H) 74 - 109 mg/dL [facility] 08/10/2024 3:00 AM EST 08/11/2024 2:52 PM EST Anthony Norton MD LAB BLOOD ORDERABLES Final Re sult Performing Organization Address City/[facility]/ZIP Co de Phone Number [facility] [address] [place] [address] * (ABNORMAL) Basic Metabolic Panel Bundled (08/10/2024 [...] 2:52 PM EST Anthony Norton MD LAB [id number] SOLICITED RESULTS Final Result Performing Organization Address [facility] de Phone Number [facility] [address] [place] [address] * Aluminum level (08/08/2024 3:00 AM EST) Aluminum 4 1 - 20 ug/L [facility] 08/08/2024 3:00 AM EST 08/09/2024 1:21 PM EST Anthony Norton MD LAB BLOOD ORDERABLES Final Re sult Performing Organization Address [facility] de Phone Number [facility] [address] [place] [address] * Hepatitis B Core Antibody, Total (08/08/2024 3:00 AM EST) HBc Total Ab, S Negative Negative [facility] 08/08/2024 3:00 AM EST 08/09/2024 1:17 PM EST us Anthony Norton MD LAB BLOOD ORDERABLES Final Re sult Performing Organization Address [facility] de Phone Number [facility] [address] [place] [address] * Confirmation Test HCV (08/08/2024 3:00 AM EST) Pathologist [facility] Hep C Ab Confirmation Not needed [facility] 08/08/2024 3:00 AM EST 08/09/2024 1:15 PM EST Anthony Norton MD LAB BLOOD ORDERABLES Final Re sult Performing Organization Address [facility] de Phone Number [facility] [address] [place] [address] * HEPATITIS C ABS W/REFLEX RNA DETECTR (08/08/2024 3:00 AM EST) Pathologist [facility] Hep C Virus Ab Non-Reacti ve Non-Reacti ve [facility] 08/08/2024 3:00 AM EST 08/09/2024 1:17 PM EST Anthony Norton MD LAB [id number] SOLICITED RESULTS Final Result Performing Organization Address [facility] de Phone Number [facility] [address] [place] [address] * Hepatitis B Surface Ag w/Reflex Confirmation (08/08/2024 3:00 AM EST) Pathologist [facility] Hep B Surface Antigen Negative Negative [facility] 08/08/2024 3:00 AM EST 08/09/2024 1:17 PM EST Anthony Norton MD LAB BLOOD ORDERABLES Final Re sult Performing Organization Address [facility] de Phone Number [facility] [address] [place] [address] * Vitamin D 25 Hydroxy (08/08/2024 3:00 AM EST) Pathologist [facility] Vitamin D, 25-Hydroxy 38 30 - 100 ng/mL [facility] Comment: Status ? Adult ?? Pediatric Deficient: ? <20 ? <15 Insufficient: ??20-29 ?? 15-19 Sufficient: ?30-100 ??20-100 08/08/2024 3:00 AM EST 08/09/2024 1:17 PM EST us Anthony Norton MD LAB BLOOD ORDERABLES Final Re sult Performing Organization Address [facility] Co de Phone Number [facility] [address] [place] [address] * Uric Acid (08/08/2024 3:00 AM EST) Uric Acid 5.0 2.3 - 6.6 mg/dL [facility] 08/08/2024 3:00 AM EST 08/09/2024 1:17 PM EST Anthony Norton MD LAB BLOOD ORDERABLES Final Re sult Performing Organization Address [facility] de Phone Number [facility] [address] [place] [address] * (ABNORMAL) TSAT (08/08/2024 3:00 AM EST) Iron 34(L) 50 - 170 ug/dL [facility] Transferrin 126(L) 250 - 380 mg/dL [facility] TIBC 176(L) 211 - 406 ug/dL [facility] Iron Saturation (TSat) 19(L) 22 - 52 % [facility] 08/08/2024 3:00 AM EST 08/09/2024 1:17 PM EST Anthony Norton MD LAB BLOOD ORDERABLES Final Re sult Performing Organization Address [facility] de Phone Number [facility] [address] [place] [address] * (ABNORMAL) Protein, total (08/08/2024 3:00 AM EST) Total Protein 5.7(L) 6.4 - 8.9 g/dL [facility] 08/08/2024 3:00 AM EST 08/09/2024 1:17 PM EST Anthony Norton MD LAB BLOOD ORDERABLES Final Re sult Performing Organization Address [facility] de Phone Number [facility] [address] [place] [address] * Electrolyte panel (08/08/2024 3:00 AM EST) [...] Re sult Performing Organization Address [facility] de Phone Number [facility] [address] [place] [address] * Magnesium (08/08/2024 3:00 AM EST) Pathologist [facility] Magnesium 1.9 1.9 - 2.7 mg/dL [facility] 08/08/2024 3:00 AM EST 08/09/2024 1:17 PM EST Anthony Norton MD LAB BLOOD ORDERABLES Final Re sult Performing Organization Address [facility] de Phone Number [facility] [address] [place] [address] * (ABNORMAL) Lipid panel (08/08/2024 3:00 AM [...] ORDERABLES Final Re sult Performing Organization Address City/[facility]/ZIP Co de Phone Number [facility] [address] [place] [address] * LIH (08/08/2024 3:00 AM EST) Lipemia Normal Normal [facility] Icterus Normal Normal [facility] Hemolysis Normal Normal [facility] 08/08/2024 3:00 AM EST 08/09/2024 1:17 PM EST us Anthony Norton MD LAB [id number] SOLICITED RESULTS Final Result Performing Organization Address [facility] Co de Phone Number [facility] [address] [place] [address] * Lactate dehydrogenase (08/08/2024 3:00 AM EST) LDH 198 120 - 246 U/L [facility] 08/08/2024 3:00 AM EST 08/09/2024 1:17 PM EST Anthony Norton MD LAB BLOOD ORDERABLES Final Re sult Performing Organization Address [facility] Co de Phone Number [facility] [address] [place] [address] * (ABNORMAL) Glucose, random (08/08/2024 3:00 AM EST) Glucose 124(H) 74 - 109 mg/dL [facility] 08/08/2024 3:00 AM EST 08/09/2024 1:17 PM EST Anthony Norton MD LAB BLOOD ORDERABLES Final Re sult Performing Organization Address [facility] Phone Number [facility] [address] [place] [address] * Bilirubin, total (08/08/2024 3:00 AM EST) Total Bilirubin 0.3 0.3 - 1.2 mg/dL [facility] 08/08/2024 3:00 AM EST 08/09/2024 1:17 PM EST Anthony Norton MD LAB BLOOD ORDERABLES Final Re sult Performing Organization Address [facility] de Phone Number [facility] [address] [place] [address] * (ABNORMAL) Creatinine, serum (08/08/2024 3:00 AM EST) Creatinine 4.24(H) 0.55 - 1.02 mg/dL [facility] 08/08/2024 3:00 AM EST 08/09/2024 1:17 PM EST Anthony Norton MD LAB BLOOD ORDERABLES Final Re sult Performing Organization Address [facility] de Phone Number [facility] [address] [place] [address] * AST (08/08/2024 3:00 AM EST) AST (SGOT) 11 <34 U/L [facility] 08/08/2024 3:00 AM EST 08/09/2024 1:17 PM EST Anthony Norton MD LAB BLOOD ORDERABLES Final Re sult Performing Organization Address [facility] de Phone Number [facility] [address] [place] [address] * (ABNORMAL) ALT (08/08/2024 3:00 AM EST) ALT (SGPT) 8(L) 10 - 49 U/L [facility] 08/08/2024 3:00 AM EST 08/09/2024 1:17 PM EST us Anthony Norton MD LAB BLOOD ORDERABLES Final Re sult Performing Organization Address [facility] Phone Number [facility] [address] [place] [address] * (ABNORMAL) Calcium Phosphorus Product, Adjusted (08/08/2024 [...] PM EST us Anthony Norton MD LAB [id number] SOLICITED RESULTS Final Result Performing Organization Address [facility] de Phone Number [facility] [address] [place] [address] * Alkaline phosphatase (08/08/2024 3:00 AM EST) Alkaline Phosphatase 76 46 - 116 U/L [facility] 08/08/2024 3:00 AM EST 08/09/2024 1:17 PM EST us Anthony Norton MD LAB BLOOD ORDERABLES Final Re sult Performing Organization Address [facility] de Phone Number [facility] [address] [place] [address] * (ABNORMAL) Hepatitis B Surface Antibody (08/08/2024 3:00 AM EST) Pathologist [facility] Hep B Surface Antibody <4(A) mIU/mL [facility] Comment: Interpretation: <10: No Immunity >=10: Probable Immunity 08/08/2024 3:00 AM EST 08/09/2024 1:17 PM EST us Anthony Norton MD LAB BLOOD ORDERABLES Final Re sult Performing Organization Address [facility] de Phone Number [facility] [address] [place] [address] * (ABNORMAL) Ferritin (08/08/2024 3:00 AM EST) Pathologist [facility] Ferritin 1,209(H) 10 - 291 ng/mL [facility] 08/08/2024 3:00 AM EST 08/09/2024 1:17 PM EST us Anthony Norton MD LAB BLOOD ORDERABLES Final Re sult Performing Organization Address [facility] de Phone Number [facility] [address] [place] [address] * (ABNORMAL) PTH, Intact (08/08/2024 3:00 AM EST) Pathologist [facility] PTH, Intact 144(L) 160 - 721 pg/mL [facility] Comment: Suggested (KDIGO) ESRD maintenance range is two to nine times the upper normal limit (80.1 pg/mL) for the laboratory. 08/08/2024 3:00 AM EST 08/09/2024 1:17 PM EST Anthony Norton MD LAB BLOOD ORDERABLES Final Re sult Performing Organization Address [facility] de Phone Number [facility] [address] [place] [address] * (ABNORMAL) Hemoglobin A1c (08/08/2024 3:00 AM [...] Re sult Performing Organization Address [facility] de Phone Number [facility] [address] [place] [address] * (ABNORMAL) Kt/V Natural Log, URR (08/08/2024 [...] 1:17 PM EST Anthony Norton MD LAB [id number] SOLICITED RESULTS Final Result [facility] [address] [place] [address] * (ABNORMAL) CBC and Differential (08/08/2024 3:00 [...] Final Re sult [facility] [address] [place] [address] documented in this encounter Visit Diagnoses Diagnosis 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
--- OUTSIDE RECORDS SUMMARY | 2024-09-05 07:15 | XMS_ITS | Clinical Summary ---
Author Organization [facility] Address [address] [address] Phone Care Team Providers Care Fire Crew Specialist Name Role Phone Eloisa Vázquez Primary Care Provider [phone] Encounters Date Type Department Care Team Description 09/02/2024 Treatment [facility] [address] [phone] Anthony Norton MD 08/26/2024 Treatment [facility] [address] [phone] Anthony Norton MD 08/23/2024 Treatment [facility] [address] [phone] Tony Golden MD 08/17/2024 Treatment [facility] [address] [phone] Anthony Norton MD 08/11/2024 Orders Only [facility] [address] [phone] Anthony Norton MD ANCA associated vasculitis (HCC); 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) 08/08/2024 Treatment [facility] [address] [phone] Anthony Norton MD 08/08/2024 Office Communication [facility] [address] [place] [address] Anthony Norton MD ANCA associated vasculitis (HCC) (Primary Dx); 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) 07/28/2024 Telephone [facility] [address] [address] Maggy Mcgarry from Last 3 [...] Exam 08/08/2024 Diabetes: Hemoglobin A1C 11/05/2024 08/08/2024, 1208/2023 Procedures Procedure Name Priority Date/Time Associated Diagnosis Comments HEPATITIS B SURFACE ANTIGEN W/REFL CONFIRM Routine 09/02/2024 3:00 AM EST TRANSFERRIN SATURATION Routine 3:00 AM EST LACTATE DEHYDROGENASE Routine 09/02/2024 3:00 AM EST MAGNESIUM Routine 09/02/2024 3:00 AM EST ELECTROLYTE PANEL Routine 09/02/2024 3:0 0 AM EST LIH (HC) Routine 09/02/2024 3:00 AM EST PROTEIN, TOTAL, SERUM Routine 09/02/2024 3:00 AM EST AST Routine 09/02/2024 3:00 AM EST GLUCOSE, RANDOM Routine 09/02/2024 3:00 AM EST BILIRUBIN, TOTAL Routine 09/02/2024 3:00 AM EST ALT Routine 09/02/2024 3:00 AM EST CALCIUM PHOSPHORUS PRODUCT, ADJUSTED (HC) Routine 09/02/2024 3:00 AM EST ALKALINE PHOSPHATASE Routine 09/02/2024 3:00 AM EST FERRITIN Routine 09/02/2024 3:00 AM EST CBC AND DIFFERENTIAL Routine 09/02/2024 3:00 AM EST CREATININE CLEARANCE, URINE, 24 HOUR Routine 09/02/2024 3:00 AM EST KT/V NATURAL LOG, URR (HC) Routine 09/02/2024 3:00 AM EST LIH (HC) Routine 08/29/2024 3:00 AM EST GLUCOSE, RANDOM Routine 08/29/2024 3:00 AM EST BASIC METABOLIC PANEL BUNDLED (HC) Routine 08/29/2024 3:00 AM EST LIH (HC) Routine 08/26/2024 3:00 AM EST [...] EST from Last 3 Months Results * LIH (09/02/2024 3:00 AM EST) Only the most recent of6 resultswithin the time period is included. Lipemia Normal Normal [facility] Icterus Normal Normal [facility] Hemolysis Normal Normal [facility] 09/02/2024 3:00 AM EST 09/03/2024 1:29 PM EST Anthony Norton MD LAB [id number] SOLICITED RESULTS Final Result Performing Organization Address [facility] de Phone Number [facility] [address] [place] [address] * (ABNORMAL) Kt/V Natural Log, URR (09/02/2024 3:00 AM EST) Only the most recent of2 resultswithin the time period is included. Treatment Time 184 min [facility] Pre-Weight, lb 68.6 kg [facility] Post-Weight, lb 66.1 kg [facility] Ultrafiltration Rate 12 <=13 mL/kg/hr [facility] Comment: Recommend achieving Ultrafiltration Rate (UFR) <=10 mL/kg/hr References: Krish PIERCE et al. Kidney Int. 2010; 79(2):250-257 BUN Post Dialysis 13 7 - 25 mg/dL [facility] BUN 49(H) 7 - 25 mg/dL [facility] UREA REDUCTION RATIO (%) 73 >=65 % [facility] Kt/V Natural Log 1.54 >=1.2 [facility] 09/02/2024 3:00 AM EST 09/03/2024 1:25 PM EST Anthony Norton MD LAB [id number] SOLICITED RESULTS Final Result Performing Organization Address [facility] Co de Phone Number [facility] [address] [place] [address] * (ABNORMAL) Calcium Phosphorus Product, Adjusted (09/02/2024 3:00 AM EST) Only the most recent of2 resultswithin the time period is included. Albumin 3.2(L) 3.6 - 5.4 g/dL [facility] Calcium 8.3(L) 8.6 - 10.3 mg/dL [facility] Phosphorus, Serum 2.7 2.5 - 5.0 mg/dL [facility] Ca*PO4 22.4 <55.0 mg2/dL2 [facility] Calcium, Adjusted Total 8.9 8.6 - 10.3 mg/dL [facility] CA*PO4 CORRCTD 24.0 <55.0 mg2/dL2 [facility] 09/02/2024 3:00 AM EST 09/03/2024 1:29 PM EST Anthony Norton MD LAB [id number] SOLICITED RESULTS Final Result Performing Organization Address [facility] Co de Phone Number [facility] [address] [place] [address] * Hepatitis B Surface Ag w/Reflex Confirmation (09/02/2024 3:00 AM EST) Only the most recent of2 resultswithin the time period is included. Hep B Surface Antigen Negative Negative [facility] 09/02/2024 3:00 AM EST 09/03/2024 1:29 PM EST Anthony Norton MD LAB BLOOD ORDERABLES Final Re sult Performing Organization Address [facility] de Phone Number [facility] [address] [place] [address] * (ABNORMAL) TSAT (09/02/2024 3:00 AM EST) Only the most recent of2 resultswithin the time period is included. Iron 43(L) 50 - 170 ug/dL [facility] Transferrin 119(L) 250 - 380 mg/dL [facility] TIBC 167(L) 211 - 406 ug/dL [facility] Iron Saturation (TSat) 26 22 - 52 % [facility] 09/02/2024 3:00 AM EST 09/03/2024 1:29 PM EST Anthony Norton MD LAB BLOOD ORDERABLES Final Re sult Performing Organization Address [facility] Co de Phone Number [facility] [address] [place] [address] * (ABNORMAL) Creatinine clearance, urine, 24 hour (09/02/2024 3:00 AM EST) Only the most recent of2 resultswithin the time period is included. Patient Height (FT) 165.0 cm [facility] Dry Weight 67.0 kg [facility] Body Surface Area 1.74 m2 [facility] Comment:Body surface area es timated from Kimberli and Kimberli formula Urine Volume 300 mL [facility] Collection Interval, Ur 1,440 min [facility] Creatinine 3.75(H) 0.55 - 1.02 mg/dL [facility] Creatinine, Urine 37 mg/dL [facility] Comment:See 24 Hour Urine Cr eatinine for Reference Range in mg/24hr Creatinine renal clearance 2.0(L) 75.0 - 115.0 mL/min/1.7 3m2 [facility] 09/02/2024 3:00 AM EST 09/03/2024 1:29 PM EST us Anthony Norton MD LAB URINE ORDERABLES Final Re sult [facility] [address] [place] [address] * (ABNORMAL) CBC and Differential (09/02/2024 3:00 AM EST) Only the most recent of2 resultswithin the time period is included. DIFFERENTIAL MANUAL, 2 Not Indicated [facility] White Blood Cells 6.2 4.0 - 10.0 K/uL [facility] RBC 2.82(L) 3.93 - 5.22 M/uL [facility] Hgb 8.0(L) 11.2 - 15.7 g/dL [facility] Hemoglobin x 3 24.0(L) 33.6 - 47.1 g/dL [facility] Hematocrit 25.8(L) 34.1 - 44.9 % [facility] MCV 91.5 79.4 - 94.8 fL [facility] MCH 28.4 25.6 - 32.2 pg [facility] MCHC 31.0(L) 32.2 - 35.5 g/dL [facility] Platelets 178(L) 182 - 369 K/uL [facility] RDW 21.1(H) 11.7 - 14.4 % [facility] Neutrophils Relative 75.6(H) 34.0 - 71.1 % [facility] Lymphocytes Relative 15.1(L) 19.3 - 51.7 % [facility] Monocytes 8.1 4.7 - 12.5 % [facility] Eosinophils Relative 0.2(L) 0.7 - 5.8 % [facility] Basophils Relative 0.0(L) 0.1 - 1.2 % [facility] Immature Granulocytes 1.0 0.0 - 1.0 % [facility] 09/02/2024 3:00 AM EST 09/03/2024 1:44 PM EST Anthony Norton MD LAB BLOOD ORDERABLES Final Re sult Performing Organization Address [facility] de Phone Number [facility] [address] [place] [address] * (ABNORMAL) ALT (09/02/2024 3:00 AM EST) Only the most recent of2 resultswithin the time period is included. ALT (SGPT) 8(L) 10 - 49 U/L [facility] 09/02/2024 3:00 AM EST 09/03/2024 1:29 PM EST Anthony Norton MD LAB BLOOD ORDERABLES Final Re sult Performing Organization Address [facility] de Phone Number [facility] [address] [place] [address] * AST (09/02/2024 3:00 AM EST) Only the most recent of2 resultswithin the time period is included. AST (SGOT) 10 <34 U/L [facility] 09/02/2024 3:00 AM EST 09/03/2024 1:29 PM EST Anthony Norton MD LAB BLOOD ORDERABLES Final Re sult Performing Organization Address [facility] de Phone Number [facility] [address] [place] [address] * (ABNORMAL) Protein, total (09/02/2024 3:00 AM EST) Only the most recent of2 resultswithin the time period is included. Total Protein 5.1(L) 6.4 - 8.9 g/dL [facility] 09/02/2024 3:00 AM EST 09/03/2024 1:29 PM EST Anthony Norton MD LAB BLOOD ORDERABLES Final Re sult Performing Organization Address [facility] Co de Phone Number [facility] [address] [place] [address] * Alkaline phosphatase (09/02/2024 3:00 AM EST) Only the most recent of2 resultswithin the time period is included. Alkaline Phosphatase 69 46 - 116 U/L [facility] 09/02/2024 3:00 AM EST 09/03/2024 1:29 PM EST Anthony Norton MD LAB BLOOD ORDERABLES Final Re sult Performing Organization Address [facility] de Phone Number [facility] [address] [place] [address] * Magnesium (09/02/2024 3:00 AM EST) Only the most recent of2 resultswithin the time period is included. Magnesium 1.9 1.9 - 2.7 mg/dL [facility] 09/02/2024 3:00 AM EST 09/03/2024 1:29 PM EST Anthony Norton MD LAB BLOOD ORDERABLES Final Re sult Performing Organization Address [facility] de Phone Number [facility] [address] [place] [address] * Lactate dehydrogenase (09/02/2024 3:00 AM EST) Only the most recent of2 resultswithin the time period is included. LDH 221 120 - 246 U/L [facility] 09/02/2024 3:00 AM EST 09/03/2024 1:29 PM EST Anthony Norton MD LAB BLOOD ORDERABLES Final Re sult Performing Organization Address [facility] de Phone Number [facility] [address] [place] [address] * (ABNORMAL) Glucose, random (09/02/2024 3:00 AM EST) Only the most recent of6 resultswithin the time period is included. Glucose 124(H) 74 - 109 mg/dL [facility] 09/02/2024 3:00 AM EST 09/03/2024 1:29 PM EST Anthony Norton MD LAB BLOOD ORDERABLES Final Re sult Performing Organization Address [facility] Phone Number [facility] [address] [place] [address] * (ABNORMAL) Ferritin (09/02/2024 3:00 AM EST) Only the most recent of2 resultswithin the time period is included. Ferritin 1,612(H) 10 - 291 ng/mL [facility] 09/02/2024 3:00 AM EST 09/03/2024 1:29 PM EST Anthony Norton MD LAB BLOOD ORDERABLES Final Re sult Performing Organization Address [facility] de Phone Number [facility] [address] [place] [address] * (ABNORMAL) Bilirubin, total (09/02/2024 3:00 AM EST) Only the most recent of2 resultswithin the time period is included. Total Bilirubin 0.2(L) 0.3 - 1.2 mg/dL [facility] 09/02/2024 3:00 AM EST 09/03/2024 1:29 PM EST Anthony Norton MD LAB BLOOD ORDERABLES Final Re sult Performing Organization Address [facility] de Phone Number [facility] [address] [place] [address] * Electrolyte panel (09/02/2024 3:00 AM EST) Only the most recent of2 resultswithin the time period is included. Sodium 138 136 - 145 mEq/L [facility] Potassium 4.5 3.4 - 5.0 mEq/L [facility] Chloride 104 98 - 107 mEq/L [facility] Bicarbonate (CO2) 22 21 - 31 mEq/L [facility] Anion Gap 12 3 - 14 mEq/L [facility] 09/02/2024 3:00 AM EST 09/03/2024 1:29 PM EST Anthony Norton MD LAB BLOOD ORDERABLES Final Re sult Performing Organization Address [facility] de Phone Number [facility] [address] [place] [address] * (ABNORMAL) Basic Metabolic Panel Bundled (08/29/2024 3:00 AM EST) Only the most recent of4 resultswithin the time period is included. Sodium 141 136 - 145 mEq/L [facility] Potassium 2.8(L) 3.4 - 5.0 mEq/L [facility] Chloride 105 98 - 107 mEq/L [facility] Bicarbonate (CO2) 25 21 - 31 mEq/L [facility] Anion Gap 11 3 - 14 mEq/L [facility] BUN 46(H) 7 - 25 mg/dL [facility] Calcium 8.3(L) 8.6 - 10.3 mg/dL [facility] Creatinine 3.54(H) 0.55 - 1.02 mg/dL [facility] 08/29/2024 3:00 AM EST 08/30/2024 2:10 PM EST Anthony Norton MD LAB [id number] SOLICITED RESULTS Final Result Performing Organization Address [facility] de Phone Number [facility] [address] [place] [address] * (ABNORMAL) Hemoglobin (08/26/2024 3:00 AM EST) Hgb 8.3(L) 11.2 - 15.7 g/dL [facility] Hemoglobin x 3 24.9(L) 33.6 - 47.1 g/dL [facility] 08/26/2024 3:00 AM EST 08/27/2024 1:29 PM EST Anthony Norton MD LAB BLOOD ORDERABLES Final Re sult Performing Organization Address City/[facility] Co de Phone Number [facility] [address] [place] [address] * (ABNORMAL) Hemoglobin and hematocrit (08/17/2024 3:00 AM EST) Pathologist [facility] Hgb 8.0(L) 11.2 - 15.7 g/dL [facility] Hematocrit 25.9(L) 34.1 - 44.9 % [facility] Hemoglobin x 3 24.0(L) 33.6 - 47.1 g/dL [facility] 08/17/2024 3:00 AM EST 08/19/2024 12:34 PM EST Anthony Norton MD LAB BLOOD ORDERABLES Final Re sult Performing Organization Address [facility] de Phone Number [facility] [address] [place] [address] * Confirmation Test HCV (08/08/2024 3:00 AM EST) Pathologist [facility] Hep C Ab Confirmation Not needed [facility] 08/08/2024 3:00 AM EST 08/09/2024 1:15 PM EST Anthony Norton MD LAB BLOOD ORDERABLES Final Re sult Performing Organization Address [facility] Co de Phone Number [facility] [address] [place] [address] * HEPATITIS C ABS W/REFLEX RNA DETECTR (08/08/2024 3:00 AM EST) Pathologist [facility] Hep C Virus Ab Non-Reacti ve Non-Reacti ve [facility] 08/08/2024 3:00 AM EST 08/09/2024 1:17 PM EST Anthony Norton MD LAB [id number] SOLICITED RESULTS Final Result Performing Organization Address [facility] de Phone Number [facility] [address] [place] [address] * Hepatitis B Core Antibody, Total (08/08/2024 3:00 AM EST) HBc Total Ab, S Negative Negative [facility] 08/08/2024 3:00 AM EST 08/09/2024 1:17 PM EST Anthony Norton MD LAB BLOOD ORDERABLES Final Re sult Performing Organization Address [facility] de Phone Number [facility] [address] [place] [address] * Aluminum level (08/08/2024 3:00 AM EST) Aluminum 4 1 - 20 ug/L [facility] 08/08/2024 3:00 AM EST 08/09/2024 1:21 PM EST Anthony Norton MD LAB BLOOD ORDERABLES Final Re sult Performing Organization Address [facility] de Phone Number [facility] [address] [address] * Vitamin D 25 Hydroxy (08/08/2024 3:00 AM EST) Vitamin D, 25-Hydroxy 38 30 - 100 ng/mL [facility] Comment: Status ? Adult ?? Pediatric Deficient: ? <20 ? <15 Insufficient: ??20-29 ?? 15-19 Sufficient: ?30-100 ??20-100 08/08/2024 3:00 AM EST 08/09/2024 1:17 PM EST Anthony Norton MD LAB BLOOD ORDERABLES Final Re sult Performing Organization Address [facility] de Phone Number [facility] [address] [place] [address] * (ABNORMAL) Hepatitis B Surface Antibody (08/08/2024 3:00 AM EST) Hep B Surface Antibody <4(A) mIU/mL [facility] Comment: Interpretation: <10: No Immunity >=10: Probable Immunity 08/08/2024 3:00 AM EST 08/09/2024 1:17 PM EST Anthony Norton MD LAB BLOOD ORDERABLES Final Re sult Performing Organization Address [facility] de Phone Number [facility] [address] [place] [address] * Uric Acid (08/08/2024 3:00 AM EST) Pathologist [facility] Uric Acid 5.0 2.3 - 6.6 mg/dL [facility] 08/08/2024 3:00 AM EST 08/09/2024 1:17 PM EST Anthony Norton MD LAB BLOOD ORDERABLES Final Re sult Performing Organization Address [facility] Phone Number [facility] [address] [place] [address] * (ABNORMAL) PTH, Intact (08/08/2024 3:00 AM EST) PTH, Intact 144(L) 160 - 721 pg/mL [facility] Comment: Suggested (KDIGO) ESRD maintenance range is two to nine times the upper normal limit (80.1 pg/mL) for the laboratory. 08/08/2024 3:00 AM EST 08/09/2024 1:17 PM EST Anthony Norton MD LAB BLOOD ORDERABLES Final Re sult Performing Organization Address [facility] de Phone Number [facility] [address] [place] [address] * (ABNORMAL) Hemoglobin A1c (08/08/2024 3:00 AM [...] Re sult Performing Organization Address [facility] de Phone Number [facility] [address] [address] * (ABNORMAL) Creatinine, serum (08/08/2024 3:00 AM EST) Creatinine 4.24(H) 0.55 - 1.02 mg/dL [facility] 08/08/2024 3:00 AM EST 08/09/2024 1:17 PM EST Anthony Norton MD LAB BLOOD ORDERABLES Final Re sult Performing Organization Address [facility] de Phone Number [facility] [address] [place] [address] * (ABNORMAL) Lipid panel (08/08/2024 3:00 AM [...] ORDERABLES Final Re sult Performing Organization Address City/State/[facility] Co de Phone Number [facility] [address] [place] [address] from Last 3 Months Insurance [facility] MEDICARE Care Teams Fire Crew Specialist Relationship Specialty Start Date End Date GurpreetEloisa [address] [place] [address] PCP - General Internal Medicine 07/11/24
--- OUTSIDE RECORDS SUMMARY | 2024-09-05 07:15 | XMS_ITS | Encounter Summary ---
Author Organization [facility] Address [address] [place] [address] Care Team Providers Care Block Engraver Name Role Phone Marie Vázquezmankamryn CHERY Primary Care Provider [phone] Reason for Visit * Reason Onset Date Comments provider call back 08/09/2024 Encounter Details Date Type Department Care Team (Late st Contact Info) Description 08/09/2024 Telephone Nephrology - [place] [address] [place] [phone] Chencho Wayne MD [address] [facility] [address] [place] [address] provider call back Social History [...] was seen by Dr Wayne at the [facility]. She was discharged last Thursday. She is on dialysis 3 times a day. She needs to see Dr Tone casas. There are no available appointments. Also please review message below. Call Dennise at: [phone] * Criseldakamryn Medina - 08/09/2024 9:12 AM EST Patients daughter is calling today because her mother was in the hospital and had a transfusion called Rituximab performed and was told she would need another one done around 08/11 or 08/12 but she wants to know if she schedules that through the [facility] or if your office does that. Please advise her at [phone]. Also if she needs a sooner follow up appointment than what she has now documented in this encounter Plan of Treatment Upcoming Encounters Date Type Department Care Team (Late st Contact Info) Description 09/05/2024 10:00 AM EDT Office Visit Endocrinology - [place] [address] [place] [address] Kathy Michelle PA [address] [place] [address] 10/06/2024 1:15 PM EDT [facility] [address] [place] [address] Eloisa Vázquez DO [address] [place] [address] 11/11/2024 11:00 AM EDT Ancillary Procedure [facility] [address] [facility] [address] [place] [address] 11/14/2024 11:30 AM EDT Appointment [facility] CT Scan [address] [place] [phone] 12/01/2024 10:00 AM EDT Office Visit Thoracic Surgery - [place] [address] [phone] Cecily Montez MD [address] [address] documented as of this encounter Visit Diagnoses Not on filedocumented in this encounter Additional Health Concerns Infection Onset Date Last Indicated Resolved Time Tuberculosis Rule-Out 08/05/2024 08/05/20242024 7:04 PM EST documented as of this encounter Care Teams Block Engraver Relationship Specialty Start Date End Date Eloisa Vázquez DO [address] [facility] [place] [address] PCP - General 04/12/24 documented as of this encounter
--- OUTSIDE RECORDS SUMMARY | 2024-09-05 07:15 | XMS_ITS | Encounter Summary ---
Author Organization [facility] Address [address] [address] Phone Care Team Providers Care Product Safety Head Name Role Phone Eloisa Vázquez Primary Care Provider [phone] Encounter Details Date Type Department Care Team (Late st Contact Info) Description 08/08/2024 Treatment [facility] [address] [address] Boni Pierce MD [address] [address] Social History Tobacco Use Types [...] kidney injury requiring renal replacement therapy. Attending Rehabilitation Medicine Physician: BONI PIERCE MD Dialysis Location: [facility] Schedule: Shift: 1 ADDITIONAL [...] on filedocumented in this encounter Care Teams Product Safety Head Relationship Specialty Start Date End Date Eloisa Vázquez [address] [place] [address] PCP - General Internal Medicine 07/11/24 documented as of this encounter
--- OUTSIDE RECORDS SUMMARY | 2024-09-05 07:16 | XMS_ITS | Clinical Summary ---
Author Organization [facility] Address [address] [place] [address] Care Team Providers Care Digester Operator Name Role Phone Eloisa Vázquez DO Primary Care Provider [phone] Allergies No known active allergies Medications cetirizine [...] week for 16 doses. 08/08/19 025 Active pantoprazole (PROTONIX) 40 mg EC [...] mg total) by mouth daily 025 Discontinued glipiZIDE (GLUCOTROL XL) 5 mg 24 hr tablet TAKE 2 TABLETS BY MOUTH IN THE MORNING AND TAKE 1 TABLET BY MOUTH IN THE AFTERNOON (WITH MEALS) 270 tablet 06/17/20 24 025 Discontinued polyethylene glycol (MIRALAX) 17 gram packet Take 17 g by mouth 1 (one) time each day if needed for constipation. 08/05/19 025 Active Problems Patient Care Coordination No te Formatting of this note migh t be different from the original. Barriers: Renal Bx 07/22 w/ path pending, new HD, trend labs, H/H, heparin drip- LLE DVT, repeat Pt eval, lung mass biopsy 07/27 Plan: 1st choice - [facility]t onsite HD. 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 She will need to see her vascular technologist prior to procedure. Hypertension 06/01/2024 Hyperlipidemia 06/01/2024 [...] 3:00 PM EST Office Visit Gastroenterology - [address] [place] [address] [address] [place] [address] Josiane Smith, JUNITO Iron deficiency anemia, unspecified iron deficiency anemia type; History of cancer of unknown primary site 08/22/2024 8:30 AM EST - 08/22/2024 11:59 PM EST Hospital Encounter [address] [address] Chencho Wayne MD Crescentic glomerulonephritis (Primary Dx); Cresentic glomerulonephritis of transplanted kidney Discharge Disposition: Home or Self Care 08/22/2024 Social Work [address] [address] Haley Andrews LMSW 08/15/2024 1:30 PM EST Office Visit Thoracic Surgery - [address] [place] [address] Cecily Montez MD Pulmonary nodule (Primary Dx); Lung mass 08/11/[address] [phone] Nalini Clark RN 08/10/2024 10:00 AM EST Office Visit [facility] Hematology Oncology [address] [place] [phone] Jaime Grimaldo MD Lung mass (Primary Dx); Normocytic anemia; Chronic renal failure, stage 5 (CMS/HCC) 08/09/2024 Telephone Nephrology - [address] [phone] Chencho Wayne MD provider call back 08/05/2024 11:46 AM EST Anesthesia Event [facility] Main OR [address] [place] [phone] Monroe Kim MD 08/05/2024 11:30 AM EST - 08/05/2024 1:30 PM EST Surgery [facility] Main OR [address] [place] [phone] Cecily Montez MD Navigation bronchoscopy/EBUS [45434 (CPT??) +2 more] 08/01/2024 Telephone Internal Medicine - [facility] [address] [facility] [place] [phone] Eloisa Vázquez, Forms/questionnaires (PFML) 07/08/2024 10:31 AM EST - 08/06/2024 1:09 PM EST Hospital Encounter [facility] Urology Unit [address] [place] [phone] Jj Wolfe MD Flores, Carlos M, MD Japaridze, Anna, MD Santoyo-Pacheco, Omar D, MD Kokosadze, Estate, MD Zipagan, James T, MD Seralathan, Manikandan, MD Anemia, unspecified type (Primary Dx); Hyponatremia; Acute on chronic renal insufficiency; Acute encephalopathy; Bilateral leg edema; Pulmonary nodule Discharge Disposition: [facility] Facility 07/05/2024 Telephone [facility] - [facility] [address] [phone] Primo Navarro MD Pre-op Visit 06/17/2024 9:56 AM EST - 06/17/2024 11:59 PM EST Hospital Encounter [facility] CT Scan [address] [place] [phone] Lung mass; Neoplasm Discharge Disposition: Home or Self Care 06/17/2024 8:20 AM EST Office Visit [facility] - [facility] [address] [facility] [address] [place] [address] Primo Navarro MD Primary hypertension (Primary Dx); Lung mass; Preoperative cardiovascular examination; PANIAGUA (dyspnea on exertion); Leg edema 06/14/2024 Telephone Thoracic Surgery - [place] [address] [facility] [address] [place] [phone] Cecily Montez MD Procedure (Pvca , ct scan) 06/13/2024 11:00 AM EST Consult Thoracic Surgery - [place] [address] [facility] [address] [place] [address] Cecily Montez MD Lung mass (Primary Dx); Neoplasm; Pulmonary nodules from Last 3 Months Surgical History Surgery [...] COPD Brother 3 Alive COPD Brother 4 [place] Daughter Alive Healthy Father (Age 54) [place] Mother (Age 93) Osteoporos is, HTN, Arthritis [...] 10:00 AM EDT Office Visit Endocrinology - [facility] [address] [place] [address] Kathy Michelle PA [address] [place] [address] 10/06/2024 1:15 PM EDT [facility] [address] [place] [address] Eloisa Vázquez DO [address] [place] [address] 11/11/2024 11:00 AM EDT Ancillary Procedure [facility] - [facility] 101 300 [facility] [address] [place] [address] 11/14/2024 11:30 AM EDT Appointment [facility] CT Scan [address] [place] [phone] 12/01/2024 10:00 AM EDT Office Visit Thoracic Surgery - [place] [address] [phone] Cecily Montez MD [address] [address] Health Maintenance Due Date Last Done Comments [...] this topic Medical Devices Implanted Type Area Business Support Coordinator Device Identifier Shelf Expiration Date Model / Serial / Lot Cath Dial W/Vt Kt [id number] Palindrome Precision - [id number] - [id number] Implanted:Qty: 1 on 07/15/2024 by Fela Palomo MD at [facility] Dialysis Catheters Left: Chest Wall [facility] [id number] 09/26/2028 [id number] 40P / [id number] / [id number] Sponge Surgifoam Gel 12 X 7mm - [id number] - [id number] Implanted:Qty: 1 on 05/23/2024 by Fela Paolmo MD at [facility] Hemostasis Right: Lung [employer] [id number] 08/27/20271971 [id number] / Sponge Surgifoam Gel 12 X 7mm - [id number] - [id number] Implanted:Qty: 1 on 07/22/2024 by Fela Palomo MD at [facility] Hemostasis Left: Kidney [employer] [id number] 05/24/20281971 [id number] / Procedures Procedure Name Priority Date/Time Associated [...] ENDOTRACHEAL(NO CHARGE) Routine 08/05/2024 12:08 PM EST OK BRONCHOSCOPY RIGID/FLEXIBLE W/EBUS >=3 MEDIASTINAL/HILAR LYMPH NODES 08/05/2024 11:46 AM EST Pulmonary nodule OK BRONCHOSCOPY INCL FLUROSCOPIC GUIDANCE W PLCMNT FIDUCIAL MARKER SGL/MULT 08/05/2024 11:46 AM EST Pulmonary nodule OK BRONCHOSCOPY RIGID/FLEXIBLE INCL FLUORO W/THERAPY ASPIRATION INITIAL [...] AM EST POCT GLUCOSE BLOOD Routine 07/17/2024 7 :57 AM EST HEPARIN ANTI XA Timed 07/17/2024 [...] BLOOD Routine 07/11/2024 8: 17 AM EST OK IMMUNOFIXATION ELECTROPHORESIS SERUM Routine 07/11/2024 6:21 AM [...] BLOOD Routine 07/08/2024 6: 19 PM EST OK PROTEIN ELECTROPHORETIC FRACTIONATION & QUANTITATION SERUM Routine [...] Routine 06/17/2024 8:35 AM EST Primary hypertension HEMOGLOBIN A1C Routine 05/31/2024 9:22 AM EST Cataract, diabetic (CMS/HCC) LIPID PANEL WITH REFLEX TO DIRECT LDL Routine 05/31/2024 9:22 AM EST Iron deficiency anemia, unspecified Cataract, diabetic (CMS/HCC) Hyperlipemia SALLY DEXA AXIAL SKELETON Routine 04/15/20 10:29 AM EDT Encounter for screening for osteoporosis from Last 3 Months or Most Recently Relevant to Health Maintenance Results * (ABNORMAL) POCT Glucose, blood (08/06/2024 11:07 AM EST) Only the most recent of114 resultswithin the time period is included. Glucose POCT 187(H) 70 - 100 mg/dL 08/06/2024 11:09 AM EST [facility] Blood Capillary blood specimen / Unknown 08/06/2024 11:07 AM EST 08/06/2024 11:10 AM EST Steve Cruz MD LAB POINT OF CA RE TEST DOCKED DEVICE UNSOLICITED RESULTS Final Result [facility] [address] [place] [address], [place] [phone] * XR Chest 1 View (08/05/2024 1:43 [...] Signed Date: 08/05/2024 13:49 ET Workstation ID: [id number] Transcribed By: Self Edit Transcribed Date: 08/05/2024 [...] Signed Date: 08/05/2024 13:49 ET Workstation ID: [id number] Transcribed By: Self Edit Transcribed Date: 08/05/2024 13:46 ET us Cecily Montez MD IMG XR PROCEDURES Final Result * Culture bronchial with gram stain (08/05/2024 12:32 PM EST) Bronchial Culture No growth at 3 days 08/08/2024 9:42 AM EST [facility] Gram Stain Result No polymorphonuclear leukocytes, No epithelial cells, and No organisms noted 08/08/2024 9:42 AM EST [facility] Wash Structure of upper lobe of right lung / Unknown 08/05/2024 12:32 PM EST 08/05/2024 1:17 PM EST Cecily Montez MD LAB MICROBIOLOGY - GENERAL ORDER SYLVAIN Final Result [facility] [address] [place] [address], [place] [phone] * Concentration (08/05/2024 12:32 PM EST) AFB Concentration Performed 025 3:05 PM EST [facility] Wash Structure of upper lobe of right lung / Unknown 08/05/2024 12:32 PM EST 08/05/2024 1:17 PM EST Narrative [facility] - 08/06/2024 3:05 PM EST Performed at: ??01 - [facility] [address] ??[id number] Clinical Exercise Physiologist: Diane Belle MD, Phone: ??[phone] us Cecily Montez MD LAB BLOOD ORDERABLES Final Resul t [facility] * Acid fast bacilli stain (08/05/2024 12:32 PM EST) AFB Stain Result No Acid fast bacilli seen on direct smear (Fuchsin method, 1000x) No Acid Fast Bacilli seen on direct smear 08/05/2024 2:18 PM EST [facility] Wash Structure of upper lobe of right lung / Unknown 08/05/2024 12:32 PM EST 08/05/2024 1:17 PM EST us Cecily Montez MD LAB MICROBIOLOGY - GENERAL ORDER SYLVAIN Final Result [facility] [address] [place] [address], [place] [phone] * Non-gynecologic cytology (08/05/2024 12:20 PM EST) [...] node elements present. 08/09/2024 1:04 PM EST [facility] Specimen A Adequacy Satisfactory for evaluation 08/09/2024 1:04 PM EST [facility] Specimen B Adequacy Satisfactory for evaluation 08/09/2024 1:04 PM [facility] Specimen C Adequacy Satisfactory for evaluation 08/09/2024 1:04 PM [facility] Specimen D Adequacy Satisfactory for evaluation 08/09/2024 1:04 PM [facility] Specimen E Adequacy Specimen processed and examined, but unsatisfactory for eval of abnormal epithelial 08/09/2024 1:04 PM [facility] Specimen F Adequacy Satisfactory for evaluation 08/09/2024 1:04 PM [facility] Gross Description A. Lung, Right [...] fixation time 54 hours. 08/09/2024 1:04 PM [facility] Disclaimer Unless otherwise specified, all tissue is 10% NB formalin fixed and paraffin embedded. Technical cytopathology services provided by [facility], at [address] [place] [address] ([facility] # [id number]/Gladys Prince MD, Electrifier Operator.) 08/09/2024 1:04 PM EST [facility] Brushing, function (observable entity) Structure [...] MD LAB CYTOLOGY ORDERABLES Final Re sult [facility] [address] [place] [address], * TH AN ENDOTRACHEAL(NO CHARGE) (08/05/2024 12:08 PM EST) Narrative Candelaria Tatum CRNA - 08/05/2024 12:08 PM EST Candelaria Tatum CRNA ? 08/05/2024 12:10 PM General Information and Staff Patient location during procedure: OR Anesthesiologist: Monroe Kim MD Resident/KISS MACHINE OPERATOR: Candelaria Tatum CRNA Performed: resident/KISS MACHINE OPERATOR/CAA Performed by: Candelaria Tatum CRNA Authorized [...] 7:04 AM EST) Only the most recent of28 resultswithin the time period is included. Sodium 133 133 - 145 mmol/L LAB CHEMISTRY METHOD 08/05/2024 8:01 AM [facility] Potassium 4.5 3.5 - 5.5 mmol/L LAB CHEMISTRY METHOD 08/05/2024 8:01 AM [facility] Chloride 96 96 - 110 mmol/L LAB CHEMISTRY METHOD 08/05/2024 8:01 AM [facility] CO2 32 21 - 32 mmol/L LAB CHEMISTRY METHOD 08/05/2024 8:01 AM [facility] Anion Gap 5 3 - 11 LAB CHEMISTRY METHOD 08/05/2024 8:01 AM [facility] Glucose 138(H) 70 - 100 mg/dL LAB CHEMISTRY METHOD 08/05/2024 8:01 AM [facility] BUN 53(H) 5 - 25 mg/dL LAB CHEMISTRY METHOD 08/05/2024 8:01 AM [facility] Creatinine 3.91(H) 0.50 - 1.10 mg/dL LAB CHEMISTRY METHOD 08/05/2024 8:01 AM [facility] eGFR 11(L) >=60 mL/min/1. 73m2 LAB CHEMISTRY METHOD 08/05/2024 8:01 AM [facility] Comment:Calculation based on the??Chronic Kidney Disease Epidemiology Collaboration (CKD-EPI) equation refit??without adjustment for race. BUN/Creatinine Ratio 13.6 LAB CHEMISTRY METHOD 08/05/2024 8:01 AM [facility] Calcium 8.4(L) 8.5 - 10.5 mg/dL LAB CHEMISTRY METHOD 08/05/2024 8:01 AM [facility] Blood Venous blood specimen / Unknown Venipuncture / Unknown 08/05/2024 7:04 AM EST 08/05/2024 7:34 AM EST Steve Cruz MD LAB BLOOD ORDERABLES Fi nal Result [facility] [address] [place] [address], * (ABNORMAL) CBC - Every 3 Days (08/05/2024 7:03 AM EST) Only the most recent of13 resultswithin the time period is included. WBC 8.8 4.8 - 10.8 K/mcL LAB HEMETOLOGY METHOD 08/05/2024 7:42 AM [facility] RBC 2.90(L) 3.80 - 4.80 M/mcL LAB HEMETOLOGY METHOD 08/05/2024 7:42 AM [facility] Hemoglobin 7.9(L) 11.5 - 16.0 g/dL LAB HEMETOLOGY METHOD 08/05/2024 7:42 AM [facility] Hematocrit 25.5(L) 35.0 - 47.0 % LAB HEMETOLOGY METHOD 08/05/2024 7:42 AM [facility] MCV 87.6 79.0 - 98.0 FL LAB HEMETOLOGY METHOD 08/05/2024 7:42 AM EST [facility] MCH 27.1 27.0 - 32.0 pcg LAB HEMETOLOGY METHOD 08/05/2024 7:42 AM [facility] MCHC 31.0(L) 32.0 - 37.0 g/dL LAB HEMETOLOGY METHOD 08/05/2024 7:42 AM EST [facility] RDW 21.9(H) 11.0 - 15.0 % LAB HEMETOLOGY METHOD 08/05/2024 7:42 AM EST [facility] Platelets 180 130 - 400 K/mcL LAB HEMETOLOGY METHOD 08/05/2024 7:42 AM EST [facility] MPV 10.8 7.0 - 11.0 FL LAB HEMETOLOGY METHOD 08/05/2024 7:42 AM EST [facility] NRBC 0.0 <1.0 % LAB HEMETOLOGY METHOD 08/05/2024 7:42 AM [facility] NRBC Absolute 0.00 <0.10 K/mcL LAB HEMETOLOGY METHOD 08/05/2024 7:42 AM [facility] Blood Venous blood specimen / Unknown Venipuncture / Unknown 08/05/2024 7:03 AM EST 08/05/2024 7:34 AM EST us Estdimas Stuart MD LAB BLOOD ORDERABLES Final R esult [facility] [address] [place] [address], * (ABNORMAL) Creatinine, Serum - Every 7 Days (08/04/2024 6:31 AM EST) Creatinine 2.49(H) 0.50 - 1.10 mg/dL LAB CHEMISTRY METHOD 08/04/2024 7:31 AM EST [facility] eGFR 19(L) >=60 mL/min/1. 73m2 LAB CHEMISTRY METHOD 08/04/2024 7:31 AM EST [facility] Comment:Calculation based on the??Chronic Kidney Disease Epidemiology Collaboration (CKD-EPI) equation refit??without adjustment for race. Blood Venous blood specimen / Unknown Venipuncture / Unknown 08/04/2024 6:31 AM EST 08/04/2024 6:54 AM EST Jonny Mathur MD LAB BLOOD ORDERABLES Final Re sult Performing Organization Address [facility]/ZIP Co de Phone Number [facility] [address] [place] [address], [place] [phone] * Hepatitis B surface antigen with reflex to confirmation (08/03/2024 8:49 AM EST) Only the most recent of3 resultswithin the time period is included. Hepatitis B Surface Ag Negative Negative LAB CHEMISTRY METHOD 08/03/2024 10:11 AM EST [facility] Blood Venous blood specimen / Unknown Venipuncture / Unknown 08/03/2024 8:49 AM EST 08/03/2024 9:22 AM EST Narrative [facility] - 08/03/2024 10:11 AM EST Over the counter supplements containing high doses of biotin may interfere with this assay. ??If interference is suspected, patients shoud be retested after refraining from biotin supplements for 72 hours. Steve Cruz MD LAB BLOOD ORDERABLES Fi nal Result Performing Organization Address [facility]/ZIP Co de Phone Number [facility] [address] [place] [address], [place] [phone] * Hepatitis B surface antibody quantitative (08/03/2024 8:49 AM EST) Only the most recent of2 resultswithin the time period is included. [facility] [address] Hepatitis B Surface Ab Negative Negative LAB CHEMISTRY METHOD 08/03/2024 9:59 AM [facility] Hepatitis B Surface Ab Quantitative <3.1 mIU/mL LAB CHEMISTRY METHOD 08/03/2024 9:59 AM [facility] Blood Venous blood specimen / Unknown Venipuncture / Unknown 08/03/2024 8:49 AM EST 08/03/2024 9:22 AM EST [facility] - 08/03/2024 9:59 AM EST >=10 mIU/mL is considered to be consistent with immunity. Steve Cruz MD LAB BLOOD ORDERABLES Fi nal Result [facility] [address] [place] [address], * (ABNORMAL) CBC auto differential (08/03/2024 6:01 AM EST) Only the most recent of23 resultswithin the time period is included. [facility] [address] WBC 7.5 4.8 - 10.8 K/mcL LAB HEMETOLOGY METHOD 08/03/2024 7:49 AM [facility] RBC 2.90(L) 3.80 - 4.80 M/mcL LAB HEMETOLOGY METHOD 08/03/2024 7:49 AM [facility] Hemoglobin 7.8(L) 11.5 - 16.0 g/dL LAB HEMETOLOGY METHOD 08/03/2024 7:49 AM [facility] Hematocrit 24.7(L) 35.0 - 47.0 % LAB HEMETOLOGY METHOD 08/03/2024 7:49 AM [facility] MCV 85.8 79.0 - 98.0 FL LAB HEMETOLOGY METHOD 08/03/2024 7:49 AM [facility] MCH 27.1 27.0 - 32.0 pcg LAB HEMETOLOGY METHOD 08/03/2024 7:49 AM [facility] MCHC 31.6(L) 32.0 - 37.0 g/dL LAB HEMETOLOGY METHOD 08/03/2024 7:49 AM [facility] RDW 21.6(H) 11.0 - 15.0 % LAB HEMETOLOGY METHOD 08/03/2024 7:49 AM [facility] Platelets 188 130 - 400 K/mcL LAB HEMETOLOGY METHOD 08/03/2024 7:49 AM [facility] MPV 11.2(H) 7.0 - 11.0 FL LAB HEMETOLOGY METHOD 08/03/2024 7:49 AM [facility] NRBC 0.0 <1.0 % LAB HEMETOLOGY METHOD 08/03/2024 7:49 AM [facility] NRBC Absolute 0.00 <0.10 K/mcL LAB HEMETOLOGY METHOD 08/03/2024 7:49 AM [facility] Neutrophils Relative 77.2 % LAB HEMETOLOGY METHOD 08/03/2024 7:49 AM [facility] Lymphocytes Relative 12.8 % LAB HEMETOLOGY METHOD 08/03/2024 7:49 AM [facility] Monocytes Relative 8.0 % LAB HEMETOLOGY METHOD 08/03/2024 7:49 AM [facility] Eosinophils Relative 0.4 % LAB HEMETOLOGY METHOD 08/03/2024 7:49 AM [facility] Basophils Relative 0.1 % LAB HEMETOLOGY METHOD 08/03/2024 7:49 AM [facility] Immature Granulocytes Relative 1.5 % LAB HEMETOLOGY METHOD 08/03/2024 7:49 AM [facility] Neutrophils Absolute 5.78 1.50 - 7.00 K/mcL LAB HEMETOLOGY METHOD 08/03/2024 7:49 AM EST [facility] Lymphocytes Absolute 0.96(L) 1.00 - 5.00 K/mcL LAB HEMETOLOGY METHOD 08/03/2024 7:49 AM [facility] Monocytes Absolute 0.60 0.20 - 1.00 K/mcL LAB HEMETOLOGY METHOD 08/03/2024 7:49 AM EST [facility] Eosinophils Absolute 0.03 0.00 - 0.50 K/[facility] LAB HEMETOLOGY METHOD 08/03/2024 7:49 AM [facility] Basophils Absolute 0.01 0.00 - 0.20 K/mcL LAB HEMETOLOGY METHOD 08/03/2024 7:49 AM [facility] Immature Granulocytes Absolute 0.11(H) 0.00 - 0.03 K/[facility] LAB HEMETOLOGY METHOD 08/03/2024 7:49 AM [facility] Blood Venous blood specimen / Unknown Venipuncture / Unknown 08/03/2024 6:01 AM EST 08/03/2024 7:27 AM EST Steve Cruz MD LAB BLOOD ORDERABLES Fi nal Result [facility] [address] [place] [address], * Phosphorus (08/03/2024 6:01 AM EST) Only the most recent of4 resultswithin the time period is included. Phosphorus 4.3 2.5 - 4.5 mg/dL LAB CHEMISTRY METHOD 08/03/2024 8:11 AM [facility] Blood Venous blood specimen / Unknown Venipuncture / Unknown 08/03/2024 6:01 AM EST 08/03/2024 7:27 AM EST us Steve Cruz MD LAB BLOOD ORDERABLES Fi nal Result Performing Organization Address City/[facility]/ZIP Co de Phone Number [facility] [address] [place] [address], [place] [phone] * Magnesium (08/03/2024 6:01 AM EST) Only the most recent of9 resultswithin the time period is included. Pathologist [facility] Magnesium 2.1 1.9 - 2.6 mg/dL LAB CHEMISTRY METHOD 08/03/2024 8:11 AM EST [facility] Blood Venous blood specimen / Unknown Venipuncture / Unknown 08/03/2024 6:01 AM EST 08/03/2024 7:27 AM EST us Steve Cruz MD LAB BLOOD ORDERABLES Fi nal Result Performing Organization Address [facility] de Phone Number [facility] [address] [place] [address], [place] [phone] * Type and screen (08/02/2024 3:04 PM EST) Only the most recent of5 resultswithin the time period is included. Pathologist [facility] ABO Group O 08/02/2024 4:52 PM EST [facility] Rh Type Positive 08/02/2024 4:52 PM EST [facility] Antibody Screen Negative 08/02/2024 4:52 PM EST [facility] Blood Venous blood specimen / Unknown Venipuncture / Unknown 08/02/2024 3:04 PM EST 08/02/2024 4:07 PM EST us Steve Cruz MD LAB BLOOD BANK TEST ORD ERABLES Final Result Performing Organization Address City/[facility]/ZIP Co de Phone Number [facility] [address] [place] [address], [place] [phone] * Prepare RBC: 1 Units (08/02/2024 2:09 PM EST) Only the most recent of4 resultswithin the time period is included. Pathologist [facility] Product Code [id number] 08/02/2024 6:27 PM [facility] Unit Number [id number] 08/02/19 6:27 PM [facility] Crossmatch Compatible 08/02/2024 5:03 PM [facility] Dispense Status Transfused 08/02/2024 6:27 PM [facility] Unit ABO Rh OPOS 08/02/2024 6:27 PM [facility] Unit Expiration Date Time [id number] 08/02/2024 6:27 PM [facility] Unit Blood Type 5100 08/02/2024 6:27 PM [facility] Blood Venous blood specimen / Unknown 08/02/2024 2:09 PM EST 08/02/2024 4:07 PM EST Steve Cruz MD BLOOD BANK PRODUCT ORDE JACEY Final Result [facility] [address] [place] [address], * (ABNORMAL) Hemoglobin and hematocrit (07/31/2024 2:30 PM EST) Only the most recent of4 resultswithin the time period is included. Pathologist [facility] Hemoglobin 7.3(L) 11.5 - 16.0 g/dL LAB HEMETOLOGY METHOD 07/31/2024 3:12 PM [facility] Hematocrit 23.7(L) 35.0 - 47.0 % LAB HEMETOLOGY METHOD 07/31/2024 3:12 PM [facility] Blood Venous blood specimen / Unknown Venipuncture / Unknown 07/31/2024 2:30 PM EST 07/31/2024 3:05 PM EST us Jonny Mathur MD LAB BLOOD ORDERABLES Final Re sult [facility] [address] [place] [address], [place] [phone] * (ABNORMAL) Hepatic Function Panel - STAT (07/30/2024 11:52 AM EST) Only the most recent of3 resultswithin the time period is included. Total Protein 5.2(L) 6.0 - 8.0 g/dL LAB CHEMISTRY METHOD 07/30/2024 12:56 PM [facility] Albumin 2.4(L) 3.2 - 5.0 g/dL LAB CHEMISTRY METHOD 07/30/2024 12:56 PM [facility] Total Bilirubin 0.4 0.0 - 1.4 mg/dL LAB CHEMISTRY METHOD 07/30/2024 12:56 PM [facility] Bilirubin, Direct 0.2 0.0 - 0.3 mg/dL LAB CHEMISTRY METHOD 07/30/2024 12:56 PM [facility] Bilirubin, Indirect 0.2 0.0 - 1.1 mg/dL LAB CHEMISTRY METHOD 07/30/2024 12:56 PM [facility] ALT (SGPT) 17 10 - 60 unit/L LAB CHEMISTRY METHOD 07/30/2024 12:56 PM [facility] AST (SGOT) 12 10 - 42 unit/L LAB CHEMISTRY METHOD 07/30/2024 12:56 PM [facility] Alkaline Phosphatase 80 42 - 121 unit/L LAB CHEMISTRY METHOD 07/30/2024 12:56 PM [facility] [facility] Blood Venous blood specimen / Unknown Venipuncture / Unknown 07/30/2024 11:52 AM EST 07/30/2024 12:28 PM EST us Jonny Mathur MD LAB BLOOD ORDERABLES Final Re sult Performing Organization Address [facility]/ZIP Co de Phone Number [facility] [address] [place] [address], [place] [phone] * (ABNORMAL) Heparin and low molecular weight anti Xa level (07/30/2024 6:10 AM EST) Only the most recent of32 resultswithin the time period is included. Heparin Anti-Xa 1.16(H) 0.30 - 0.70 I Unit/mL LAB COAGULATION METHOD 07/30/2024 6:53 AM EST [facility] Blood Venous blood specimen / Unknown Venipuncture / Unknown 07/30/2024 6:10 AM EST 07/30/2024 6:26 AM EST Narrative [facility] - 07/30/2024 6:53 AM EST Therapeutic range listed is for Unfractionated Heparin. LMW Heparin therapeutic range: 0.50-1.20 IU/mL us Jonny Mathur MD LAB BLOOD ORDERABLES Final Re sult Performing Organization Address [facility]/ZIP Tn de Phone Number [facility] [address] [place] [address], [place] [phone] * Hepatitis B core antibody IgM (07/28/2024 12:19 PM EST) Hep B Core IgM Negative Negative LAB CHEMISTRY METHOD 07/28/2024 3:22 PM EST [facility] Blood Venous blood specimen / Unknown Venipuncture / Unknown 07/28/2024 12:19 PM EST 07/28/2024 12:35 PM EST Narrative [facility] - 07/28/2024 3:22 PM EST Over the counter supplements containing high doses of biotin may interfere with this assay. ??If interference is suspected, patients shoud be retested after refraining from biotin supplements for 72 hours. Miguel Quiles MD LAB BLOOD ORDERABLES Final Res ult Performing Organization Address [facility] de Phone Number [facility] [address] [place] [address], * Hepatitis B surface antibody (07/28/2024 12:19 PM EST) [facility] [address] Hepatitis B Surface Ab Negative Negative LAB CHEMISTRY METHOD 07/28/2024 1:40 PM EST [facility] Hepatitis B Surface Ab Quantitative <3.1 mIU/mL LAB CHEMISTRY METHOD 07/28/2024 1:40 PM EST [facility] Blood Venous blood specimen / Unknown Venipuncture / Unknown 07/28/2024 12:19 PM EST 07/28/2024 12:35 PM EST Narrative [facility] - 07/28/2024 1:40 PM EST >=10 mIU/mL is considered to be consistent with immunity. Miguel Quiles MD LAB BLOOD ORDERABLES Final Res ult Performing Organization Address [facility] Phone Number [facility] [address] [place] [address], * Transfuse RBC (07/23/2024 6:19 PM EST) Only the most recent of3 resultswithin the time period is included. Lencho Stuart MD BLOOD TRANSFUSION ORDERABLES Final Result * Insert Midline (07/23/2024 4:52 PM EST) Narrative Maggy Spencer RN - 07/23/2024 4:52 PM EST Maggy Spencer RN ? 07/23/2024 ??5:02 PM Midline Insertion Procedure Note Procedure: Insertion of 18g/10cm Bard Powerglide midline Lot: [id number] Exp: 2025-05-28 Indications: ??Difficult draw with frequent [...] Recommendations: May use for blood draws us [employer] Sade GUERRERO IV THERAPY ORDERABLES Final Result * IR [...] Signed Date: 07/22/2024 17:00 ET Workstation ID: [id number] Transcribed By: Self Edit Transcribed Date: 07/22/2024 [...] of fentanyl administered during the procedure. Scanner: [employer] [address] Dose reduction technique: [...] of fentanyl administered during the procedure. Scanner: [employer] [address] Dose reduction technique: [...] Signed Date: 07/22/2024 17:00 ET Workstation ID: [id number] Transcribed By: Self Edit Transcribed Date: 07/22/2024 [...] Tissue exam (07/22/2024 3:13 PM EST) Addendum [facility] Kidney (addendum) This case was sent to [facility], Department of Pathology, [place], [place] (CLIA: [id number]). Their diagnosis is summarized as follows: Pathologic [...] report for full kidney biopsy diagnosis from [place], [place]) 08/12/2024 10:52 AM [facility] Addendum electronically signed by Mitchell Prince MD on 08/12/2024 at 10:52 AM Final Diagnosis Kidney, left-biopsies for routine, immunofluorescence and electron microscopy: -Submitted in toto to [facility] -See addendum report 08/12/2024 10:52 AM [facility] Gross Description A. Kidney, Left, : Labeled kidney L . Received fresh in saline are 3 perez-pink soft tissue cores, ranging from 0.7 x 0.1 cm to 1.7 x 0.1 cm, which are transfered to formalin for light microscopy, Mick fixative for Immunofluorescence, and Glutaraldehyde for electron microscopy. The specimen is entirely submitted to [facility] for analysis. ELOISE 08/12/2024 10:52 AM [facility] Disclaimer Unless otherwise specified, all tissue is 10% NB formalin fixed and paraffin embedded. 08/12/2024 10:52 AM [facility] Tissue Left kidney structure / Unknown 07/22/2024 3:13 PM EST 07/22/2024 3:39 PM EST Fela Palomo MD LAB PATHOLOGY ORDERABLES Edited Result - Final Performing Organization Address City/[facility]/ZIP Co de Phone Number [facility] [address] [place] [address], [place] [phone] * (ABNORMAL) Prothrombin time with INR (07/22/2024 11:00 AM EST) Only the most recent of4 resultswithin the time period is included. Protime 16.3(H) 10.6 - 13.9 sec LAB COAGULATION METHOD 07/22/2024 1:11 PM EST [facility] INR 1.3 LAB COAGULATION METHOD 07/22/2024 1:11 PM [facility] Blood Venous blood specimen / Unknown Venipuncture / Unknown 07/22/2024 11:00 AM EST 07/22/2024 11:22 AM EST Lencho Stuart MD LAB BLOOD ORDERABLES Final R esult Performing Organization Address [facility]/ZIP Co de Phone Number [facility] [address] [place] [address], * SST tube (07/22/2024 10:53 AM EST) Only the most recent of2 resultswithin the time period is included. Extra Tube Hold for add-ons. 07/22/2024 1:01 PM EST [facility] Comment:Auto resulted. Blood Venous blood specimen / Unknown 07/22/2024 10:53 AM EST 07/22/2024 11:25 AM EST Lencho Stuart MD LAB BLOOD ORDERABLES Final R esult [facility] [address] [place] [address], * Lavender tube (07/22/2024 10:53 AM EST) Pathologist [facility] Extra Tube Hold for add-ons. 07/22/2024 1:01 PM EST [facility] Comment:Auto resulted. Blood Venous blood specimen / Unknown 07/22/2024 10:53 AM EST 07/22/2024 11:25 AM EST us Lencho Stuart MD LAB BLOOD ORDERABLES Final R esult Performing Organization Address City/[facility]/ZIP Co de Phone Number [facility] [address] [place] [address], [place] [phone] * Activated Partial Thromboplastin Time - STAT (07/20/2024 2:30 PM EST) Only the most recent of3 resultswithin the time period is included. Pathologist [facility] aPTT 30.0 24.1 - 39.3 sec LAB COAGULATION METHOD 07/20/2024 3:06 PM EST [facility] Blood Venous blood specimen / Unknown Venipuncture / Unknown 07/20/2024 2:30 PM EST 07/20/2024 2:52 PM EST us Lencho Stuart MD LAB BLOOD ORDERABLES Final [facility] Performing Organization Address City/[facility]/ZIP Co de Phone Number [facility] [address] [place] [address], [place] [phone] * (ABNORMAL) Microalbumin creatinine urine ratio (07/19/2024 12:01 PM EST) Pathologist [facility] Creatinine, Urine 41.0 mg/dL LAB CHEMISTRY METHOD 07/19/2024 1:46 PM [facility] Microalb, Ur 1,480.0(H ) 0.0 - 29.0 mg/L LAB CHEMISTRY METHOD 07/19/2024 1:46 PM [facility] Microalb/Crea t Ratio 3,610(H) <30 mg/g creat LAB CHEMISTRY METHOD 07/19/2024 1:46 PM EST [facility] Urine Urine specimen obtained by clean catch procedure / Unknown Non-blood Collection / Unknown 07/19/2024 12:01 PM EST 07/19/2024 12:30 PM EST us Miguel Quiles MD LAB URINE ORDERABLES Final Res ult Performing Organization Address [facility] de Phone Number [facility] [address] [place] [address], [place] [phone] * Creatinine, urine, random (07/19/2024 12:01 PM EST) Only the most recent of2 resultswithin the time period is included. Creatinine, Urine 41.0 mg/dL LAB CHEMISTRY METHOD 07/19/2024 1:17 PM EST [facility] Urine Urine specimen obtained by clean catch procedure / Unknown Non-blood Collection / Unknown 07/19/2024 12:01 PM EST 07/19/2024 12:30 PM EST us Miguel Quiles MD LAB URINE ORDERABLES Final Res ult Performing Organization Address [facility] de Phone Number [facility] [address] [place] [address], [place] [phone] * (ABNORMAL) Parathyroid hormone related protein (07/19/2024 7:55 AM EST) PTH-related Protein (PTHrP) 24(H) 11 - 20 pg/mL 07/26/2024 4:37 PM EST [facility] Comment: This is a C-terminal PTH-RP assay. PTH-RP is useful in the differential diagnosis of hypercalcemia and levels may be elevated in patients with tumor-associated hypercalcemia. Elevated results may also be observed in patients with renal disease. This test was developed and its analytical performance characteristics have been determined by [employer]. It has not been cleared or approved by FDA. This assay has been validated pursuant to the CLIA regulations and is used for clinical purposes. Test Performed at: [employer] [facility] [address] [place], [place] ??[id number] ? I Bethany GUERRERO, PhD, NINA Blood Venous blood specimen / Unknown Venipuncture / Unknown 07/19/2024 7:55 AM EST 07/19/2024 7:55 AM EST Jesus Manuel HEDRICK LAB BLOOD ORDERABLES Final Resu lt [facility] [address] [place] [address] * (ABNORMAL) Anti-neutrophilic cytoplasmic antibody (07/19/2024 6:52 AM EST) Only the most recent of2 resultswithin the time period is included. Myeloperoxidase Ab Negative Negative LAB CHEMISTRY METHOD 07/20/2024 12:10 PM EST [facility] Myeloperoxidase Ab, Quant 1 <=20 units LAB CHEMISTRY METHOD 07/20/2024 12:10 PM EST [facility] Proteinase-3 Ab Positive(A ) Negative LAB CHEMISTRY METHOD 07/20/2024 12:10 PM [facility] Proteinase-3 Ab Quant 165(H) <=20 units LAB CHEMISTRY METHOD 07/20/2024 12:10 PM [facility] Blood Venous blood specimen / Unknown Venipuncture / Unknown 07/19/2024 6:52 AM EST 07/19/2024 7:21 AM EST us Miguel Quiles MD LAB BLOOD ORDERABLES Final Res ult [facility] [address] [place] [address], [place] [phone] * Robertson urine culture tube (07/18/2024 6:10 AM EST) Only the most recent of2 resultswithin the time period is included. Pathologist [facility] Extra Tube Hold for add-ons. 07/18/2024 8:01 AM EST [facility] Comment:Auto resulted. Urine Urine specimen obtained by clean catch procedure / Unknown 07/18/2024 6:10 AM EST 07/18/2024 6:37 AM EST Lencho Stuart MD LAB URINE ORDERABLES Final R esult Performing Organization Address [facility]/ZIP Co de Phone Number [facility] [address] [place] [address], [place] [phone] * (ABNORMAL) Urinalysis microscopic only (07/18/2024 6:09 AM EST) Pathologist [facility] RBC, Urine 10(H) 0 - 4 /HPF 07/18/2024 7:53 AM [facility] WBC, Urine >100(H) 0 - 4 /HPF 07/18/2024 7:53 AM [facility] Squamous Epithelial, Urine 10 0 - 60 /LPF 07/18/2024 7:53 AM [facility] Non-Squamous Epithelial, Urine 2-5 Transitional epithelial cells. /LPF 07/18/2024 7:53 AM [facility] Bacteria, Urine Many(A) Negative /HPF 07/18/2024 7:53 AM [facility] Other Casts, Urine Rare Coarse Granular casts. /LPF 07/18/2024 7:53 AM [facility] Urine Indwelling urinary catheter / Unknown Non-blood Collection / Unknown 07/18/2024 6:09 AM EST 07/18/2024 6:36 AM EST Gian Crum MD LAB URINE ORDERABLES F inal Result [facility] [address] [place] [address], [place] [phone] * (ABNORMAL) Calcium, ionized (07/18/2024 6:07 AM EST) Only the most recent of2 resultswithin the time period is included. Calcium Ionized 4.28(L) 4.50 - 5.30 mg/dL 07/18/2024 6:46 AM EST [facility] Blood Venous blood specimen / Unknown 07/18/2024 6:07 AM EST 07/18/2024 6:33 AM EST us Gian Crum MD LAB BLOOD ORDERABLES F inal Result [facility] [address] [place] [address], [place] [phone] * Vascular US duplex lower extremity venous [...] Signed Date: 07/16/2024 12:33 ET Workstation ID: [id number] Transcribed By: Self Edit Transcribed Date: 07/16/2024 [...] Signed Date: 07/16/2024 12:33 ET Workstation ID: [id number] Transcribed By: Self Edit Transcribed Date: 07/16/2024 12:28 ET us Gian Crum MD CV VASCULAR PROCEDURES Final Result * IR Insert Tunneled CVC wo Port or Pump More 5yrs Left (07/15/2024 3:36 PM EST) Anatomical Region Laterality Modality Left Interventional R adiology 07/15/2024 3:45 PM EST Impressions 07/15/2024 3:47 PM EST Successful placement of a 14 Indian 23 cm dual-lumen cuffed tunneled dialysis catheter with the tip at the cavoatrial junction. This line may be used immediately. -------- FINAL REPORT -------- Dictated By: Fela Palomo Dictated Date: 07/15/2024 15:45 ET Assigned Physician: Fela Palomo Reviewed and Electronically Signed By: Fela Palomo Signed Date: 07/15/2024 15:47 ET Workstation ID: [id number] Transcribed By: Self Edit Transcribed Date: 07/15/2024 [...] The needle was exchanged for the 4 Indian transition sheath. A 0.035 wire was then advanced through ??the sheath and into the inferior vena cava under fluoroscopy. The sheath was then exchanged for a 7 Indian vascular dilator. Attention was then turned to the right upper chest and the appropriate area was anesthetized with 2% lidocaine. A small dermatotomy was performed and then a tunnel was created from the dermatotomy to the initial venous access site. The catheter was advanced through the tunnel. ??The initial venous access site was then serially dilated up to a 15 Indian peel-away sheath. The catheter was then advanced [...] The needle was exchanged for the 4 Indian transition sheath. A 0.035wire was then advanced through the sheath and into the inferior vena cavaunder fluoroscopy. The sheath was then exchanged for a 7 Indian vasculardilator. Attention was then turned to the right upper chest and the appropriatearea was anesthetized with 2% lidocaine. A small dermatotomy was performedand then a tunnel was created from the dermatotomy to the initial venousaccess site. The catheter was advanced through the tunnel. The initialvenous access site was then serially dilated up to a 15 Indian peel-awaysheath. The catheter was then advanced through [...] mGy IMPRESSION: Successful placement of a 14 Indian 23 cm dual-lumen cuffed tunneleddialysis catheter with the tip at the cavoatrial junction. This line maybe used immediately. -------- FINAL REPORT -------- Dictated By: Fela Palomo Dictated Date: 07/15/2024 15:45 ET Assigned Physician: Fela Palomo Reviewed and Electronically Signed By: Fela Palomo Signed Date: 07/15/2024 15:47 ET Workstation ID: [id number] Transcribed By: Self Edit Transcribed Date: 07/15/2024 15:45 ET Chencho Wayne MD IMG IR PROCEDURES Final Result * (ABNORMAL) Renal function panel (07/15/2024 8:56 AM EST) Sodium 132(L) 133 - 145 mmol/L LAB CHEMISTRY METHOD 07/15/2024 10:26 AM [facility] Potassium 3.8 3.5 - 5.5 mmol/L LAB CHEMISTRY METHOD 07/15/2024 10:26 AM [facility] Chloride 104 96 - 110 mmol/L LAB CHEMISTRY METHOD 07/15/2024 10:26 AM [facility] CO2 16(L) 21 - 32 mmol/L LAB CHEMISTRY METHOD 07/15/2024 10:26 AM [facility] Anion Gap 12(H) 3 - 11 LAB CHEMISTRY METHOD 07/15/2024 10:26 AM [facility] Glucose 80 70 - 100 mg/dL LAB CHEMISTRY METHOD 07/15/2024 10:26 AM [facility] BUN 97(H) 5 - 25 mg/dL LAB CHEMISTRY METHOD 07/15/2024 10:26 AM [facility] Creatinine 6.70(H) 0.50 - 1.10 mg/dL LAB CHEMISTRY METHOD 07/15/2024 10:26 AM [facility] eGFR 6(L) >=60 mL/min/1. 73m2 LAB CHEMISTRY METHOD 07/15/2024 10:26 AM [facility] Comment:Calculation based on the??Chronic Kidney Disease Epidemiology Collaboration (CKD-EPI) equation refit??without adjustment for race. BUN/Creatinine Ratio 14.5 LAB CHEMISTRY METHOD 07/15/2024 10:26 AM EST [facility] Albumin 3.3 3.2 - 5.0 g/dL LAB CHEMISTRY METHOD 07/15/2024 10:26 AM [facility] Comment:Results verified by repeat testing Calcium 8.4(L) 8.5 - 10.5 mg/dL LAB CHEMISTRY METHOD 07/15/2024 10:26 AM [facility] Phosphorus 4.2 2.5 - 4.5 mg/dL LAB CHEMISTRY METHOD 07/15/2024 10:26 AM [facility] Blood Venous blood specimen / Unknown Venipuncture / Unknown 07/15/2024 8:56 AM EST 07/15/2024 9:43 AM EST Chencho Wayne MD LAB BLOOD ORDERABLES Final Resu lt [facility] [address] [place] [address], * (ABNORMAL) RBC morphology review (07/15/2024 6:56 AM EST) Rbc Morphology Present( A) Consistent with indices, Normal for LAB HEMETOLOGY METHOD 07/15/2024 8:54 AM [facility] Platelet Morphology - WAM See Note(A) Normal LAB HEMETOLOGY METHOD 07/15/2024 8:54 AM [facility] Comment:PLT: Normal Polychromasia Present Present( A) (none) LAB HEMETOLOGY METHOD 07/15/2024 8:54 AM [facility] Pappenheimer Bodies Present Present( A) (none) LAB HEMETOLOGY METHOD 07/15/2024 8:54 AM [facility] Schistocytes Present < 5%(A) (none) LAB HEMETOLOGY METHOD 07/15/2024 8:54 AM [facility] Blood Venous blood specimen / Unknown Venipuncture / Unknown 07/15/2024 6:56 AM EST 07/15/2024 7:52 AM EST us Gian Crmu MD LAB BLOOD ORDERABLES F inal Result Performing Organization Address City/[facility]/ZIP Co de Phone Number [facility] [address] [place] [address], [place] [phone] * Extractable Nuclear Antibodies Profile (07/14/2024 6:00 AM EST) SM Ab Negative Negative LAB CHEMISTRY METHOD 07/17/2024 12:29 PM EST [facility] SM Antibody Quant 2 <20 units LAB CHEMISTRY METHOD 07/17/2024 12:29 PM EST [facility] [employer] Ab Negative Negative LAB CHEMISTRY METHOD 07/17/2024 12:29 PM EST [facility] [employer] Antibody Quant 1 <20 units LAB CHEMISTRY METHOD 07/17/2024 12:29 PM EST [facility] Blood Venous blood specimen / Unknown 07/14/2024 6:00 AM EST 07/14/2024 6:35 AM EST us Gian Crum MD LAB BLOOD ORDERABLES F inal Result Performing Organization Address City/[facility]/ZIP Co de Phone Number [facility] [address] [place] [address], [place] [phone] * (ABNORMAL) C3 complement (07/14/2024 6:00 AM EST) C3 Complement 78(L) 88 - 201 mg/dL LAB CHEMISTRY METHOD 07/14/2024 11:20 AM EST [facility] Blood Venous blood specimen / Unknown 07/14/2024 6:00 AM EST 07/14/2024 6:35 AM EST us Gian Crum MD LAB BLOOD ORDERABLES F inal Result Performing Organization Address [facility]/ZIP Co de Phone Number [facility] [address] [place] [address], [place] [phone] * C4 complement (07/14/2024 6:00 AM EST) C4 Complement 18 16 - 47 mg/dL LAB CHEMISTRY METHOD 07/14/2024 11:20 AM EST [facility] Blood Venous blood specimen / Unknown 07/14/2024 6:00 AM EST 07/14/2024 6:35 AM EST Gian Crum MD LAB BLOOD ORDERABLES F inal Result Performing Organization Address [facility] Co de Phone Number [facility] [address] [place] [address], * (ABNORMAL) Sedimentation rate (07/13/2024 6:38 AM EST) [facility] [address] Sed Rate 84(H) 0 - 30 mm/hr LAB HEMETOLOGY METHOD 07/13/2024 7:32 AM EST [facility] Blood Venous blood specimen / Unknown Venipuncture / Unknown 07/13/2024 6:38 AM EST 07/13/2024 6:51 AM EST Gina Crum MD LAB BLOOD ORDERABLES F inal Result Performing Organization Address City/[facility] Co de Phone Number [facility] [address] [place] [address], [place] [phone] * Uric acid (07/13/2024 6:38 AM EST) Only the most recent of2 resultswithin the time period is included. Uric Acid 7.5 3.1 - 7.8 mg/dL LAB CHEMISTRY METHOD 07/13/2024 7:44 AM EST [facility] Blood Venous blood specimen / Unknown Venipuncture / Unknown 07/13/2024 6:38 AM EST 07/13/2024 6:50 AM EST us Chencho Wayne MD LAB BLOOD ORDERABLES Final Resu lt Performing Organization Address [facility]/ZIP Co de Phone Number [facility] [address] [place] [address], [place] [phone] * (ABNORMAL) Protein and creatinine with ratio, urine (07/12/2024 3:27 PM EST) Protein, Urine 192 mg/dL LAB CHEMISTRY METHOD 07/12/2024 6:44 PM [facility] Prot/Creat, Ur 3.00(H) <=0.20 mg/mg creat LAB CHEMISTRY METHOD 07/12/2024 6:44 PM [facility] Creatinine, Urine 64.0 mg/dL LAB CHEMISTRY METHOD 07/12/2024 6:44 PM EST [facility] Urine Urine specimen obtained by clean catch procedure / Unknown Non-blood Collection / Unknown 07/12/2024 3:27 PM EST 07/12/2024 4:10 PM EST us Chencho Wayne MD LAB URINE ORDERABLES Final Resu lt Performing Organization Address City/[facility]/ZIP Co de Phone Number [facility] [address] [place] [address], [place] [phone] * Sodium, urine, random (07/12/2024 3:27 PM EST) Sodium, Ur 34 mmol/L LAB CHEMISTRY METHOD 07/12/2024 6:44 PM EST [facility] Urine Urine specimen obtained by clean catch procedure / Unknown Non-blood Collection / Unknown 07/12/2024 3:27 PM EST 07/12/2024 4:10 PM EST Aye HEDRICK LAB URINE ORDERABLES Final Re sult Performing Organization Address City/[facility]/ZIP Co de Phone Number [facility] [address] [place] [address], [place] [phone] * Osmolality, urine (07/12/2024 3:27 PM EST) Osmolality, Urine 397 300 - 1,300 mOsm/kg LAB CHEMISTRY METHOD 07/12/2024 5:57 PM EST [facility] Urine Urine specimen obtained by clean catch procedure / Unknown Non-blood Collection / Unknown 07/12/2024 3:27 PM EST 07/12/2024 4:10 PM EST Aye HEDRICK LAB URINE ORDERABLES Final Re sult Performing Organization Address [facility] Co de Phone Number [facility] [address] [place] [address], [place] [phone] * CT Chest wo Contrast (07/12/2024 12:48 [...] Small bilateral pleural effusions, new. Teleradha HEDRICK ([id number]) -------- FINAL REPORT -------- Dictated By: Edilia Durbin Dictated Date: 07/12/2024 13:07 ET Assigned Physician: Edilia Durbin Reviewed and Electronically Signed By: Edilia Durbin Signed Date: 07/12/2024 13:19 ET Workstation ID: [id number] Transcribed By: Self Edit Transcribed Date: 07/12/2024 13:07 ET Narrative 07/12/2024 1:19 PM EST History: Abnormal chest radiograph. The patient underwent nondiagnostic CT- guided biopsy of the right apical lung nodule on 05/23/24. Comparison: Thoracic CT 06/17/24, 03/21/24 Technique: Helical volumetric imaging of the thorax was performed without IV contrast. DLP: 613.10 mGy/cm [employer] VCT Iterative reconstruction technique Findings: Respiratory motion [...] performed withoutIV contrast. DLP: 613.10 mGy/cm [employer] VCT Iterative reconstruction technique Findings: Respiratory motion [...] Small bilateral pleural effusions, new. Telerad RYLEY ([id number]) -------- FINAL REPORT -------- Dictated By: Edilia Durbin Dictated Date: 07/12/2024 13:07 ET Assigned Physician: Edilia Durbin Reviewed and Electronically Signed By: Edilia Durbin Signed Date: 07/12/2024 13:19 ET Workstation ID: [id number] Transcribed By: Self Edit Transcribed Date: 07/12/2024 13:07 ET Gian Crum MD IM CT PROCEDURES [place] Result * (ABNORMAL) Procalcitonin (07/12/2024 6:19 AM EST) Procalcitonin 3.11(H) <=0.16 ng/mL LAB CHEMISTRY METHOD 07/12/2024 12:23 PM EST [facility] Blood Venous blood specimen / Unknown Venipuncture / Unknown 07/12/2024 6:19 AM EST 07/12/2024 6:56 AM EST Narrative [facility] - 07/12/2024 12:23 PM EST [...] ORDERABLES F inal Result Performing Organization Address [facility] Co de Phone Number [facility] [address] [place] [address], [place] [phone] * (ABNORMAL) C-reactive protein (07/12/2024 6:19 AM EST) [facility] C-Reactive Protein 16.60(H) <=0.50 mg/dL LAB CHEMISTRY METHOD 07/12/2024 10:35 AM EST [facility] Blood Venous blood specimen / Unknown Venipuncture / Unknown 07/12/2024 6:19 AM EST 07/12/2024 6:56 AM EST us Gian Crum MD LAB BLOOD ORDERABLES F inal Result Performing Organization Address [facility]/ZIP Co de Phone Number [facility] [address] [place] [address], [place] [phone] * (ABNORMAL) Lipase (07/12/2024 6:19 AM EST) Only the most recent of2 resultswithin the time period is included. [facility] [address] Lipase <10(L) 13 - 75 unit/L LAB CHEMISTRY METHOD 07/12/2024 3:26 PM EST [facility] Blood Venous blood specimen / Unknown Venipuncture / Unknown 07/12/2024 6:19 AM EST 07/12/2024 6:56 AM EST us Gian Crum MD LAB BLOOD ORDERABLES F inal Result [facility] [address] [place] [address], [place] [phone] * Pathologist Review Immunofixation (07/11/2024 6:21 AM EST) [facility] [address] Pathologist Interpretation Reviewed by Rosenda Galeana MD 07/13/2024 4:13 PM EST [facility] Blood Venous blood specimen / Unknown Venipuncture / Unknown 07/11/2024 6:21 AM EST 07/11/2024 6:43 AM EST us Chencho Wayne MD LAB BLOOD ORDERABLES Final Resu lt Performing Organization Address City/[facility]/ZIP Co de Phone Number [facility] [address] [place] [address], [place] [phone] * Immunofixation electrophoresis serum (07/11/2024 6:21 AM EST) Pathologist [facility] Immunofixation Result, Serum Faint restriction of IgG [place], not observed on SPEP . Follow-up in 6 months if clinically indicated. LAB CHEMISTRY METHOD 07/13/2024 4:13 PM EST [facility] Blood Venous blood specimen / Unknown Venipuncture / Unknown 07/11/2024 6:21 AM EST 07/11/2024 6:43 AM EST us Chencho Wayne MD LAB BLOOD ORDERABLES Final Resu lt [facility] [address] [place] [address], [place] [phone] * Immunoglobulins IgG, IgA, IgM (07/11/2024 6:21 AM EST) Total IgG 1,090 549 - 1,584 mg/dL LAB CHEMISTRY METHOD 07/11/2024 7:29 AM EST [facility] IgA 172 61 - 348 mg/dL LAB CHEMISTRY METHOD 07/11/2024 7:29 AM EST [facility] IgM 38 23 - 259 mg/dL LAB CHEMISTRY METHOD 07/11/2024 7:29 AM EST [facility] Blood Venous blood specimen / Unknown Venipuncture / Unknown 07/11/2024 6:21 AM EST 07/11/2024 6:42 AM EST Chencho Wayne MD LAB BLOOD ORDERABLES Final Resu lt Performing Organization Address [facility] Co de Phone Number [facility] [address] [place] [address], * (ABNORMAL) Triiodothyronine free (07/10/2024 5:16 AM EST) T3, Free 154(L) 230 - 420 pcg/dL LAB CHEMISTRY METHOD 07/10/2024 2:10 PM EST [facility] Blood Venous blood specimen / Unknown Venipuncture / Unknown 07/10/2024 5:16 AM EST 07/10/2024 6:42 AM EST Maria Alejandra Melendez MD LAB BLOOD ORDERABLES Final Res ult Performing Organization Address [facility]/ZIP Co de Phone Number [facility] [address] [place] [address], [place] [phone] * Thyroxine free (07/10/2024 5:16 AM EST) Free T4 0.92 0.70 - 1.80 ng/dL LAB CHEMISTRY METHOD 07/10/2024 2:04 PM EST [facility] Blood Venous blood specimen / Unknown Venipuncture / Unknown 07/10/2024 5:16 AM EST 07/10/2024 6:42 AM EST Maria Alejandra Melendez MD LAB BLOOD ORDERABLES Final Res ult Performing Organization Address City/[facility]/ZIP Co de Phone Number [facility] [address] [place] [address], [place] [phone] * (ABNORMAL) Parathyroid hormone intact (07/10/2024 5:16 AM EST) Only the most recent of2 resultswithin the time period is included. [facility] [address] PTH 10.5(L) 18.5 - 88.0 pcg/mL LAB CHEMISTRY METHOD 07/10/2024 1:47 PM EST [facility] Blood Venous blood specimen / Unknown Venipuncture / Unknown 07/10/2024 5:16 AM EST 07/10/2024 6:42 AM EST Maria Alejandra Melendez MD LAB BLOOD ORDERABLES Final Res ult Performing Organization Address City/[facility]/ZIP Co de Phone Number [facility] [address] [place] [address], [place] [phone] * Creatine kinase (07/09/2024 6:25 AM EST) Total CK 172 22 - 269 unit/L LAB CHEMISTRY METHOD 07/09/2024 8:11 AM EST [facility] Blood Venous blood specimen / Unknown Venipuncture / Unknown 07/09/2024 6:25 AM EST 07/09/2024 7:11 AM EST Aye HEDRICK LAB BLOOD ORDERABLES Final Re sult Performing Organization Address [facility] Co de Phone Number [facility] [address] [place] [address], * Green LI heparin tube (07/08/2024 9:50 PM EST) Pathologist [facility] Extra Tube Hold for add-ons. 07/09/2024 12:01 AM EST [facility] Comment:Auto resulted. Blood Venous blood specimen / Unknown 07/08/2024 9:50 PM EST 07/08/2024 10:41 PM EST Wayne Donahue MD LAB BLOOD ORDERABLES Final Re sult Performing Organization Address [facility] Co de Phone Number [facility] [address] [place] [address], * Culture blood (07/08/2024 9:49 PM EST) Only the most recent of2 resultswithin the time period is included. [facility] Culture, Blood No growth at 5 days 07/13/2024 10:01 PM EST [facility] Blood Venous blood specimen / Unknown Venipuncture / Unknown 07/08/2024 9:49 PM EST 07/08/2024 9:54 PM EST Aye HEDRICK LAB MICROBIOLOGY - GENERAL OR DERABLES Final Result Performing Organization Address [facility]/ZIP Co de Phone Number [facility] [address] [place] [address], [place] [phone] * Lactate (07/08/2024 9:42 PM EST) Lactate 1.3 mmol/L 07/08/2024 10:30 PM EST [facility] Blood Venous blood specimen / Unknown Venipuncture / Unknown 07/08/2024 9:42 PM EST 07/08/2024 9:54 PM EST us yAe HEDRICK LAB BLOOD ORDERABLES Final Re sult Performing Organization Address City/[facility]/ZIP Co de Phone Number [facility] [address] [place] [address], [place] [phone] * (ABNORMAL) Electrolyte panel (07/08/2024 8:30 PM EST) Only the most recent of2 resultswithin the time period is included. Sodium 130(L) 133 - 145 mmol/L LAB CHEMISTRY METHOD 07/08/2024 11:37 PM EST [facility] Potassium 4.0 3.5 - 5.5 mmol/L LAB CHEMISTRY METHOD 07/08/2024 11:37 PM EST [facility] Chloride 98 96 - 110 mmol/L LAB CHEMISTRY METHOD 07/08/2024 11:37 PM EST [facility] CO2 22 21 - 32 mmol/L LAB CHEMISTRY METHOD 07/08/2024 11:37 PM EST [facility] Anion Gap 10 3 - 11 LAB CHEMISTRY METHOD 07/08/2024 11:37 PM EST [facility] Blood Venous blood specimen / Unknown Venipuncture / Unknown 07/08/2024 8:30 PM EST 07/08/2024 8:37 PM EST Aye HEDRICK LAB BLOOD ORDERABLES Final Re sult [facility] [address] [place] [address], [place] [phone] * PATHOLOGIST REVIEW PROTEIN ELECTROPHORESIS (07/08/2024 5:52 PM EST) Pathologist Interpretation Reviewed by Rosenda Galeana MD 07/14/2024 9:21 AM EST [facility] Blood Venous blood specimen / Unknown Venipuncture / Unknown 07/08/2024 5:52 PM EST 07/08/2024 6:00 PM EST us Aye HEDRICK LAB BLOOD ORDERABLES Final Re sult [facility] [address] [place] [address], [place] [phone] * (ABNORMAL) Protein electrophoresis, serum (07/08/2024 5:52 PM EST) [facility] Total Protein 6.4 6.0 - 8.0 g/dL LAB CHEMISTRY METHOD 07/14/2024 9:21 AM [facility] Albumin, Serum 2.2(L) 2.9 - 4.1 g/dL LAB CHEMISTRY METHOD 07/14/2024 9:21 AM [facility] Alpha 1 Globulin (g/dL) 0.6(H) 0.1 - 0.5 g/dL LAB CHEMISTRY METHOD 07/14/2024 9:21 AM [facility] Alpha 2 Globulin (g/dL) 1.2 0.7 - 1.5 g/dL LAB CHEMISTRY METHOD 07/14/2024 9:21 AM [facility] Beta (g/dL) 1.0 0.7 - 1.5 g/dL LAB CHEMISTRY METHOD 07/14/2024 9:21 AM [facility] Gamma Globulin (g/dL) 1.5 0.7 - 1.9 g/dL LAB CHEMISTRY METHOD 07/14/2024 9:21 AM [facility] SPEP Interpretation Hypoalbuminem ia, suggestive of malnutrition, decreased hepatic synthesis or renal/GI loss Elevated alpha-1 fraction, suggestive of acute or or chronic inflammation. LAB CHEMISTRY METHOD 07/14/2024 9:21 AM [facility] Blood Venous blood specimen / Unknown Venipuncture / Unknown 07/08/2024 5:52 PM EST 07/08/2024 6:00 PM EST Aye HEDRICK LAB BLOOD ORDERABLES Final Re sult Performing Organization Address City/[facility]/ZIP Co de Phone Number [facility] [address] [place] [address], [place] [phone] * Protein, total (07/08/2024 5:52 PM EST) Total Protein 6.4 6.0 - 8.0 g/dL LAB CHEMISTRY METHOD 07/08/2024 6:30 PM EST [facility] Blood Venous blood specimen / Unknown Venipuncture / Unknown 07/08/2024 5:52 PM EST 07/08/2024 6:00 PM EST us Aye HEDRICK LAB BLOOD ORDERABLES Final Re sult Performing Organization Address [facility] Co de Phone Number [facility] [address] [place] [address], [place] [phone] * (ABNORMAL) Serum albumin (07/08/2024 5:52 PM EST) [facility] Albumin 2.1(L) 3.2 - 5.0 g/dL LAB CHEMISTRY METHOD 07/08/2024 6:34 PM EST [facility] Blood Venous blood specimen / Unknown Venipuncture / Unknown 07/08/2024 5:52 PM EST 07/08/2024 6:00 PM EST Aye HEDRICK LAB BLOOD ORDERABLES Final Re sult Performing Organization Address City/[facility]/ZIP Co de Phone Number [facility] [address] [place] [address], [place] [phone] * US Retroperitoneal Complete (07/08/2024 4:30 PM EST) Anatomical Region Laterality Modality Body Ultrasound 07/10/2024 2:07 PM EST Impressions 07/10/2024 2:08 PM EST Normal appearance of the kidneys. -------- FINAL REPORT -------- Dictated By: Primo Dee Dictated Date: 07/10/2024 14:07 ET Assigned Physician: Primo Dee Reviewed and Electronically Signed By: Primo Dee Signed Date: 07/10/2024 14:08 ET Workstation ID: [id number] Transcribed By: Self Edit Transcribed Date: 07/10/2024 [...] Signed Date: 07/10/2024 14:08 ET Workstation ID: [id number] Transcribed By: Self Edit Transcribed Date: 07/10/2024 14:07 ET us Aye HEDRICK IMG US PROCEDURES Final Resul t * Respiratory virus panel molecular study (07/08/2024 2:59 PM EST) [facility] Adenovirus Detection by PCR Not Detected Not Detected LAB MICROBIOLOGY METHOD 07/08/2024 4:18 PM EST [facility] Influenza A PCR Not Detected Not Detected LAB MICROBIOLOGY METHOD 07/08/2024 4:18 PM EST [facility] Influenza B PCR Not Detected Not Detected LAB MICROBIOLOGY METHOD 07/08/2024 4:18 PM EST [facility] Coronavirus 229E Not Detected Not Detected LAB MICROBIOLOGY METHOD 07/08/2024 4:18 PM EST [facility] Coronavirus HKU1 Not Detected Not Detected LAB MICROBIOLOGY METHOD 07/08/2024 4:18 PM [facility] Coronavirus OC43 Not Detected Not Detected LAB MICROBIOLOGY METHOD 07/08/2024 4:18 PM [facility] Coronavirus NL63 Not Detected Not Detected LAB MICROBIOLOGY METHOD 07/08/2024 4:18 PM EST [facility] Parainfluenza Virus 1 Not Detected Not Detected LAB MICROBIOLOGY METHOD 07/08/2024 4:18 PM [facility] Parainfluenza Virus 2 Not Detected Not Detected LAB MICROBIOLOGY METHOD 07/08/2024 4:18 PM [facility] Parainfluenza Virus 3 Not Detected Not Detected LAB MICROBIOLOGY METHOD 07/08/2024 4:18 PM [facility] Parainfluenza Virus 4 Not Detected Not Detected LAB MICROBIOLOGY METHOD 07/08/2024 4:18 PM [facility] RSV PCR Not Detected Not Detected LAB MICROBIOLOGY METHOD 07/08/2024 4:18 PM [facility] Human Metapneumovirus A and B Not Detected Not Detected LAB MICROBIOLOGY METHOD 07/08/2024 4:18 PM [facility] Rhinovirus/Entero virus Not Detected Not Detected LAB MICROBIOLOGY METHOD 07/08/2024 4:18 PM [facility] Bordetella pertussis Not Detected Not Detected LAB MICROBIOLOGY METHOD 07/08/2024 4:18 PM EST [facility] Bordetella parapertussis Not Detected Not Detected LAB MICROBIOLOGY METHOD 07/08/2024 4:18 PM EST [facility] Mycoplasma pneumo by PCR Not Detected Not Detected LAB MICROBIOLOGY METHOD 07/08/2024 4:18 PM EST [facility] Chlamydia pneumoniae Not Detected Not Detected LAB MICROBIOLOGY METHOD 07/08/2024 4:18 PM EST [facility] SARS COV-2 Not Detected Not Detected LAB MICROBIOLOGY METHOD 07/08/2024 4:18 PM [facility] Swab Both anterior nares / Unknown Non-blood Collection / Unknown 07/08/2024 2:59 PM EST 07/08/2024 3:15 PM EST [facility] - 07/08/2024 4:18 PM EST Testing was performed using the Cell[employer] Respiratory Pathogen PCR Assay. All results must [...] MICROBIOLOGY - GENERAL OR DERABLES Final Result [facility] [address] [place] [address], * XR Chest 2 Views (07/08/2024 2:01 PM EST) Anatomical Region Laterality Modality Body Radiographic Jennifer ging 07/08/2024 2:06 PM EST Impressions 07/08/2024 2:07 PM EST No acute findings. -------- FINAL REPORT -------- Dictated By: Henrique Bray Dictated Date: 07/08/2024 14:06 ET Assigned Physician: Henrique Bray Reviewed and Electronically Signed By: Henrique Bray Signed Date: 07/08/2024 14:07 ET Workstation ID: [id number] Transcribed By: Self Edit Transcribed Date: 07/08/2024 [...] Signed Date: 07/08/2024 14:07 ET Workstation ID: [id number] Transcribed By: Self Edit Transcribed Date: 07/08/2024 14:06 ET us Jj Wolfe MD IMG XR PROCEDURES Final R esult * (ABNORMAL) Troponin I high sensitivity (07/08/2024 1:18 PM EST) Only the most recent of2 resultswithin the time period is included. High Sensitivity Troponin I 81(H) <=54 ng/L LAB CHEMISTRY METHOD 07/08/2024 2:17 PM EST [facility] Blood Venous blood specimen / Unknown Venipuncture / Unknown 07/08/2024 1:18 PM EST 07/08/2024 1:34 PM EST [facility] - 07/08/2024 2:17 PM EST High levels of biotin in samples may falsely decrease hsTroponin values. ??Use caution when interpreting hsTroponin results in patients taking biotin who exhibit renal impairment (eGFR <60) or in patients taking more than 20 mg/day of biotin. us Jj Wolfe MD LAB BLOOD ORDERABLES [place] dominguez Result [facility] [address] [place] [address], [place] [phone] * (ABNORMAL) Urinalysis with reflex microscopic and culture (07/08/2024 12:59 PM EST) Specific [place] Urine 1.020 1.003 - 1.030 LAB URINALYSIS - AUTOMATED METHOD 07/08/2024 1:21 PM [facility] pH, Urine 5.5 5.0 - 8.0 pH LAB URINALYSIS - AUTOMATED METHOD 07/08/2024 1:21 PM [facility] Leukocytes, Urine Negative Negative LAB URINALYSIS - AUTOMATED METHOD 07/08/2024 1:21 PM [facility] Nitrite, Urine Negative Negative LAB URINALYSIS - AUTOMATED METHOD 07/08/2024 1:21 PM [facility] Protein, Urine 100(A) <=Trace mg/dL LAB URINALYSIS - AUTOMATED METHOD 07/08/2024 1:21 PM [facility] Glucose, Urine 500(A) Negative mg/dL LAB URINALYSIS - AUTOMATED METHOD 07/08/2024 1:21 PM [facility] Ketones, Urine Negative Negative mg/dL LAB URINALYSIS - AUTOMATED METHOD 07/08/2024 1:21 PM [facility] Urobilinogen, Urine 0.2 0.2 - 1.0 mg/dL LAB URINALYSIS - AUTOMATED METHOD 07/08/2024 1:21 PM [facility] Bilirubin, Urine Negative Negative LAB URINALYSIS - AUTOMATED METHOD 07/08/2024 1:21 PM [facility] Blood, Urine Large(A) Negative LAB URINALYSIS - AUTOMATED METHOD 07/08/2024 1:21 PM [facility] RBC, Urine 21.6(H) 0 - 4 /HPF LAB URINALYSIS - AUTOMATED METHOD 07/08/2024 1:21 PM [facility] WBC, Urine 7.3(H) 0 - 4 /HPF LAB URINALYSIS - AUTOMATED METHOD 07/08/2024 1:21 PM [facility] Squamous Epithelial, Urine 30 0 - 60 /LPF LAB URINALYSIS - AUTOMATED METHOD 07/08/2024 1:21 PM [facility] Bacteria, Urine Negative Negative /HPF LAB URINALYSIS - AUTOMATED METHOD 07/08/2024 1:21 PM [facility] Hyaline Casts, Urine 1.7 0 - 3 /LPF LAB URINALYSIS - AUTOMATED METHOD 07/08/2024 1:21 PM [facility] Urine Urine specimen obtained by clean catch procedure / Unknown Non-blood Collection / Unknown 07/08/2024 12:59 PM EST 07/08/2024 1:11 PM EST us Jj Wolfe MD LAB URINE ORDERABLES [place] l Result [facility] [address] [place] [address], * Culture urine (07/08/2024 12:59 PM EST) Culture, Urine No growth 07/09/2024 10:44 AM [facility] Urine Urine specimen obtained by clean catch procedure / Unknown Non-blood Collection / Unknown 07/08/2024 12:59 PM EST 07/08/2024 1:21 PM EST Jj Wolfe MD LAB MICROBIOLOGY - GENERA L ORDERABLES Final Result [facility] [address] [place] [address], * CT Cervical Spine wo Contrast (07/08/2024 [...] Signed Date: 07/08/2024 12:27 ET Workstation ID: [id number] Transcribed By: Self Edit Transcribed Date: 07/08/2024 [...] Signed Date: 07/08/2024 12:27 ET Workstation ID: [id number] Transcribed By: Self Edit Transcribed Date: 07/08/2024 [...] Signed Date: 07/08/2024 12:23 ET Workstation ID: [id number] Transcribed By: Self Edit Transcribed Date: 07/08/2024 [...] Signed Date: 07/08/2024 12:23 ET Workstation ID: [id number] Transcribed By: Self Edit Transcribed Date: 07/08/2024 12:22 ET Raya HEDRICK IM CT PROCEDURES [place] l Result * (ABNORMAL) Iron and TIBC (07/08/2024 11:10 AM EST) Iron 20(L) 40 - 150 mcg/dL LAB CHEMISTRY METHOD 07/08/2024 3:44 PM EST [facility] Comment:Hemolysis present TIBC 186(L) 250 - 450 mcg/dL LAB CHEMISTRY METHOD 07/08/2024 3:44 PM [facility] Iron Saturation 11(L) 15 - 50 % LAB CHEMISTRY METHOD 07/08/2024 3:44 PM [facility] Blood Venous blood specimen / Unknown Venipuncture / Unknown 07/08/2024 11:10 AM EST 07/08/2024 11:42 AM EST us Wayne Donahue MD LAB BLOOD ORDERABLES Final Re sult Performing Organization Address [facility]/ZIP Co de Phone Number [facility] [address] [place] [address], [place] [phone] * (ABNORMAL) Reticulocyte count (07/08/2024 11:10 AM EST) Retic Ct Abs 0.050 0.030 - 0.090 M/[facility] LAB HEMETOLOGY METHOD 07/08/2024 2:52 PM [facility] Retic Ct Pct 1.4 0.7 - 1.7 % LAB HEMETOLOGY METHOD 07/08/2024 2:52 PM [facility] Immature Retic Fract 24.5(H) 2.3 - 15.9 % LAB HEMETOLOGY METHOD 07/08/2024 2:52 PM EST [facility] Reticulocyte Hemoglobin 22.5(L) >29.0 pcg LAB HEMETOLOGY METHOD 07/08/2024 2:52 PM [facility] Blood Venous blood specimen / Unknown Venipuncture / Unknown 07/08/2024 11:10 AM EST 07/08/2024 11:42 AM EST us Wayne Donahue MD LAB BLOOD ORDERABLES Final Re sult Performing Organization Address [facility]/ZIP Co de Phone Number [facility] [address] [place] [address], [place] [phone] * (ABNORMAL) Thyroid stimulating hormone (07/08/2024 11:10 AM EST) TSH 4.50(H) 0.40 - 4.00 mcIU/mL LAB CHEMISTRY METHOD 07/08/2024 3:31 PM EST [facility] Blood Venous blood specimen / Unknown Venipuncture / Unknown 07/08/2024 11:10 AM EST 07/08/2024 11:42 AM EST Wayne Donahue MD LAB BLOOD ORDERABLES Final Re sult Performing Organization Address [facility]/ZIP Co de Phone Number [facility] [address] [place] [address], [place] [phone] * (ABNORMAL) Osmolality (07/08/2024 11:10 AM EST) Osmolality Iván 307(H) 280 - 300 mOsm/kg LAB CHEMISTRY METHOD 07/08/2024 6:51 PM EST [facility] Blood Venous blood specimen / Unknown Venipuncture / Unknown 07/08/2024 11:10 AM EST 07/08/2024 11:42 AM EST Wayne Donahue MD LAB BLOOD ORDERABLES Final Re sult Performing Organization Address [facility]/ZIP Co de Phone Number [facility] [address] [place] [address], [place] [phone] * B-type natriuretic peptide (07/08/2024 11:10 AM EST) BNP 86 <=100 pcg/mL LAB CHEMISTRY METHOD 07/08/2024 12:26 PM EST [facility] Blood Venous blood specimen / Unknown Venipuncture / Unknown 07/08/2024 11:10 AM EST 07/08/2024 11:42 AM EST us Jj Wolfe MD LAB BLOOD ORDERABLES [place] l Result [facility] [address] [place] [address], [place] [phone] * (ABNORMAL) Haptoglobin (07/08/2024 11:10 AM EST) Haptoglobin 570(H) 16 - 200 mg/dL LAB CHEMISTRY METHOD 07/08/2024 3:44 PM EST [facility] Blood Venous blood specimen / Unknown Venipuncture / Unknown 07/08/2024 11:10 AM EST 07/08/2024 11:42 AM EST us Wayne Donahue MD LAB BLOOD ORDERABLES Final Re sult Performing Organization Address [facility] Co de Phone Number [facility] [address] [place] [address], [place] [phone] * (ABNORMAL) Folate (07/08/2024 11:10 AM EST) Folate >20.0(H) 2.8 - 17.0 ng/ml LAB CHEMISTRY METHOD 07/08/2024 3:51 PM EST [facility] Blood Venous blood specimen / Unknown Venipuncture / Unknown 07/08/2024 11:10 AM EST 07/08/2024 11:42 AM EST us Wayne Donahue MD LAB BLOOD ORDERABLES Final Re sult Performing Organization Address [facility] de Phone Number [facility] [address] [place] [address], [place] [phone] * (ABNORMAL) Ferritin (07/08/2024 11:10 AM EST) Ferritin 708(H) 8 - 252 ng/mL LAB CHEMISTRY METHOD 07/08/2024 3:51 PM EST [facility] Blood Venous blood specimen / Unknown Venipuncture / Unknown 07/08/2024 11:10 AM EST 07/08/2024 11:42 AM EST us Wayne Donahue MD LAB BLOOD ORDERABLES Final Re sult [facility] [address] [place] [address], [place] [phone] * Vitamin B12 (07/08/2024 11:10 AM EST) [facility] Vitamin B-12 384 250 - 900 pcg/mL LAB CHEMISTRY METHOD 07/08/2024 3:51 PM EST [facility] Blood Venous blood specimen / Unknown Venipuncture / Unknown 07/08/2024 11:10 AM EST 07/08/2024 11:42 AM EST us Wayne Donahue MD LAB BLOOD ORDERABLES Final Re sult Performing Organization Address [facility] de Phone Number [facility] [address] [place] [address], [place] [phone] * (ABNORMAL) Creatine kinase and CKMB (07/08/2024 11:10 AM EST) [facility] [address] Total CK 649(H) 22 - 269 unit/L LAB CHEMISTRY METHOD 07/08/2024 3:51 PM EST [facility] Comment:Hemolysis present CK-MB 13.1(H) 1.0 - 3.6 ng/mL LAB CHEMISTRY METHOD 07/08/2024 3:51 PM EST [facility] CK-MB Index 0.0 0.0 - 5.0 LAB CHEMISTRY METHOD 07/08/2024 3:51 PM EST [facility] Blood Venous blood specimen / Unknown Venipuncture / Unknown 07/08/2024 11:10 AM EST 07/08/2024 11:42 AM EST us Wayne Donahue MD LAB BLOOD ORDERABLES Final Re sult Performing Organization Address [facility]/ZIP Co de Phone Number [facility] [address] [place] [address], [place] [phone] * Cortisol (07/08/2024 11:10 AM EST) Cortisol 58.1 mcg/dL LAB CHEMISTRY METHOD 07/08/2024 3:38 PM [facility] Blood Venous blood specimen / Unknown Venipuncture / Unknown 07/08/2024 11:10 AM EST 07/08/2024 11:42 AM EST Narrative [facility] - 07/08/2024 3:38 PM EST CORTISOL REFERENCE RANGE ?? 8 AM SPEC: ??5.0-23.0 mcg/dL ?? 4 PM SPEC: ??3.0-16.0 mcg/dL ?? 8 PM SPEC: ??<5.0 mcg/dL us Wayne Donahue MD LAB BLOOD ORDERABLES Final Re sult [facility] [address] [place] [address], * (ABNORMAL) Comprehensive metabolic panel (07/08/2024 11:10 AM EST) Pathologist [facility] Sodium 126(L) 133 - 145 mmol/L LAB CHEMISTRY METHOD 07/08/2024 12:54 PM [facility] Potassium 4.2 3.5 - 5.5 mmol/L LAB CHEMISTRY METHOD 07/08/2024 12:54 PM [facility] Comment:Hemolysis present Chloride 93(L) 96 - 110 mmol/L LAB CHEMISTRY METHOD 07/08/2024 12:54 PM [facility] CO2 21 21 - 32 mmol/L LAB CHEMISTRY METHOD 07/08/2024 12:54 PM [facility] Anion Gap 12(H) 3 - 11 LAB CHEMISTRY METHOD 07/08/2024 12:54 PM [facility] Glucose 265(H) 70 - 100 mg/dL LAB CHEMISTRY METHOD 07/08/2024 12:54 PM [facility] BUN 59(H) 5 - 25 mg/dL LAB CHEMISTRY METHOD 07/08/2024 12:54 PM [facility] Comment:Results verified by repeat testing Creatinine 4.10(H) 0.50 - 1.10 mg/dL LAB CHEMISTRY METHOD 07/08/2024 12:54 PM [facility] Comment:Results verified by repeat testing eGFR 10(L) >=60 mL/min/1. 73m2 LAB CHEMISTRY METHOD 07/08/2024 12:54 PM [facility] Comment:Calculation based on the??Chronic Kidney Disease Epidemiology Collaboration (CKD-EPI) equation refit??without adjustment for race. BUN/Creatinine Ratio 14.4 LAB CHEMISTRY METHOD 07/08/2024 12:54 PM [facility] Calcium 10.6(H) 8.5 - 10.5 mg/dL LAB CHEMISTRY METHOD 07/08/2024 12:54 PM [facility] AST (SGOT) 57(H) 10 - 42 unit/L LAB CHEMISTRY METHOD 07/08/2024 12:54 PM [facility] Comment:Hemolysis present ALT (SGPT) 39 10 - 60 unit/L LAB CHEMISTRY METHOD 07/08/2024 12:54 PM [facility] Alkaline Phosphatase 149(H) 42 - 121 unit/L LAB CHEMISTRY METHOD 07/08/2024 12:54 PM [facility] Total Protein 6.3 6.0 - 8.0 g/dL LAB CHEMISTRY METHOD 07/08/2024 12:54 PM [facility] Albumin 2.1(L) 3.2 - 5.0 g/dL LAB CHEMISTRY METHOD 07/08/2024 12:54 PM [facility] Total Bilirubin 0.4 0.0 - 1.4 mg/dL LAB CHEMISTRY METHOD 07/08/2024 12:54 PM [facility] Blood Venous blood specimen / Unknown Venipuncture / Unknown 07/08/2024 11:10 AM EST 07/08/2024 11:42 AM EST Jj Wolfe MD LAB BLOOD ORDERABLES [place] Result [facility] [address] [place] [address], [place] [phone] * ECG 12 lead (07/08/2024 10:46 AM EST) Only the most recent of2 resultswithin the time period is included. Ventricular Rate ECG 94 BPM GEMUSE Atrial Rate 94 BPM GEMUSE P-R Interval 196 ms GEMUSE QRS Duration 118 ms GEMUSE Q-T Interval 354 ms GEMUSE QTc 442 ms GEMUSE P Wave [place] 79 degrees GEMUSE R [place] 15 degrees GEMUSE T [place] 4 degrees GEMUSE ECG Interpretation Sinus rhythm [...] LAB CHEMISTRY METHOD 05/31/2024 12:51 PM EST [facility] Triglycerides 113 0 - 150 mg/dL LAB CHEMISTRY METHOD 05/31/2024 12:51 PM EST [facility] HDL 60 >=40 mg/dL LAB CHEMISTRY METHOD 05/31/2024 12:51 PM EST [facility] LDL Calculated 48 0 - 100 mg/dL LAB CHEMISTRY METHOD 05/31/2024 12:51 PM [facility] VLDL Cholesterol Hunter 22.6 mg/dL LAB CHEMISTRY METHOD 05/31/2024 12:51 PM EST [facility] Non HDL Chol. (LDL+VLDL) 71 <145 mg/dL LAB CHEMISTRY METHOD 05/31/2024 12:51 PM EST [facility] Chol/HDL Ratio 2.2 0.0 - 4.4 LAB CHEMISTRY METHOD 05/31/2024 12:51 PM EST [facility] Blood Venous blood specimen / Unknown Venipuncture / Unknown 05/31/2024 9:22 AM EST 05/31/2024 9:22 AM EST us Kayleigh Pedraza NP LAB BLOOD ORDERABLES Final Resul t [facility] [address] [place] [address], * SALLY DEXA AXIAL SKELETON (04/15/2018 10:29 AM EDT) Anatomical Region Laterality Modality Mammography 04/15/2018 9:39 AM EDT Narrative 04/15/2018 10:29 AM EDT [facility] Diagnostic Imaging Department [address] [place] [address] Patient: ??CONTRERAS,ANA A ?/Age/Sex: 1945 - 73 - F Unit#: ??[id number] ? Location/Status: ??SPDIMAM/REG CLI ? Mnemonic/Ordering Site: ??MAMDEXAAX/SPMAM Ordering Physician: ??JOSE SANTIZO MD Sally Dexa Axial Skeleton - 04/15/181003 HISTORY: ??The patient is a 73-year-old postmenopausal [...] probability of hip fracture of 2.2%. Code 40649 Dictating Physician: ??JAILYN BARAHONA MD Electronically Signed by: ??JAILYN BARAHONA MD Dic Date/Time: ??04/15/18 1028 Sign date/Time: ??04/15/18 1029 Procedure Note Jailyn Barahona MD - 06/17/2022 [facility] Diagnostic Imaging Department [address] [place] [id number] Patient: ANA CONTRERAS Krysta SkinnerB./Age/Sex: 1945 - 73 - F Unit#: [id number] Location/Status: [facility] Ordering Physician: JOSE SANTIZO MD Sally Dexa [...] density of the femurs bilaterally is 0.854 gm/yj7vwmam is 85% of that of young normals [...] probability of hip fracture of 2.2%. 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
[2024-09-05 07:17] LABS: Hematocrit 23.5 % (37.0-47.0); Hemoglobin 7.8 g/dl (12.0-16.0); Imm Gran Abs Auto 0.03 X10*3/uL (0.00-0.03); Imm Gran Pct Auto 0.7 % (0.0-0.4); Lymphocytes Absolute Auto 0.4 X10*3/uL (1.2-4.9); Lymphocytes Percent Auto 9.8 % (20-40); Mean Corpuscular HGB Conc 33.2 g/dl (31.0-35.0); Mean Corpuscular Hemoglobin 29.1 pg (27.0-33.0); Mean Corpuscular Volume 87.7 fL (80.0-98.0); Mean Platelet Volume 10.8 fL (9.4-12.3); Monocytes Absolute Auto 0.1 X10*3/uL (0.1-1.2); Monocytes Percent Auto 2.5 % (2-11); Neutrophils Absolute Auto 3.8 x10*3/uL (2.0-8.3); Platelet Count 156 X10*3/uL (160-400); Red Blood Count 2.68 X10*6/uL (4.20-5.50); White Blood Count 4.4 X10*3/uL (4.8-10.8)
[2024-09-05 07:37] LABS: Anion Gap 15 (12-20); Blood Urea Nitrogen 56 mg/dL (9-16); Calcium 8.2 mg/dL (8.4-10.2); Carbon Dioxide 20 mmol/L (22-29); Chloride 106 mmol/L (96-108); Estimated Glomerular Filt Rate 12; Glucose Random 218 mg/dL (60-115); Potassium 4.5 mmol/L (3.3-5.1); Sodium 136 mmol/L (135-145)
== END 2024-09-05 07:11 | disposition home or self-care (01) ==
LOC: HO.MMNH1L 07:10
PROVIDERS: Visit Provider Family Medicine
DX: E11.9 Type 2 diabetes mellitus without complications (principal)
CPT/HCPCS: 36415; 80048; 85025

== ENCOUNTER 2024-09-12 05:37 | Outpatient (REF) | payer MEDICARE, SELFPAY ==
[2024-09-12 05:37] LABS: MANUAL DIFF FLAG NO
[2024-09-12 06:33] LABS: Anion Gap 17 (12-20); Blood Urea Nitrogen 64 mg/dL (9-16); Calcium 7.7 mg/dL (8.4-10.2); Carbon Dioxide 20 mmol/L (22-29); Chloride 104 mmol/L (96-108); Estimated Glomerular Filt Rate 13; Glucose Random 163 mg/dL (60-115); Potassium 4.2 mmol/L (3.3-5.1); Sodium 137 mmol/L (135-145)
[2024-09-12 06:45] LABS: Eosinophils Percent Auto 0.2 % (0-4); Hematocrit 22.5 % (37.0-47.0); Hemoglobin 7.3 g/dl (12.0-16.0); Imm Gran Abs Auto 0.07 X10*3/uL (0.00-0.03); Imm Gran Pct Auto 1.1 % (0.0-0.4); Lymphocytes Absolute Auto 0.9 X10*3/uL (1.2-4.9); Lymphocytes Percent Auto 14.9 % (20-40); Mean Corpuscular HGB Conc 32.4 g/dl (31.0-35.0); Mean Corpuscular Hemoglobin 29.1 pg (27.0-33.0); Mean Corpuscular Volume 89.6 fL (80.0-98.0); Mean Platelet Volume 10.7 fL (9.4-12.3); Monocytes Absolute Auto 0.5 X10*3/uL (0.1-1.2); Monocytes Percent Auto 7.4 % (2-11); Neutrophils Absolute Auto 4.7 x10*3/uL (2.0-8.3); Neutrophils Percent Auto 76.4 % (45-73); Platelet Count 156 X10*3/uL (160-400); Red Blood Count 2.51 X10*6/uL (4.20-5.50); Red Cell Distribution Width 20.1 % (11.0-16.0); White Blood Count 6.1 X10*3/uL (4.8-10.8)
== END 2024-09-12 05:38 | disposition home or self-care (01) ==
LOC: HO.MMNH1L 05:37
PROVIDERS: Visit Provider Family Medicine
DX: E11.9 Type 2 diabetes mellitus without complications (principal)
CPT/HCPCS: 36415; 80048; 85025

== ENCOUNTER 2024-09-19 05:45 | Outpatient (REF) | payer MEDICARE, SELFPAY ==
[2024-09-19 05:40] LABS: MANUAL DIFF FLAG NO
[2024-09-19 06:18] LABS: Hematocrit 23.3 % (37.0-47.0); Hemoglobin 7.8 g/dl (12.0-16.0); Imm Gran Pct Auto 1.6 % (0.0-0.4); Lymphocytes Absolute Auto 0.9 X10*3/uL (1.2-4.9); Lymphocytes Percent Auto 13.6 % (20-40); Mean Corpuscular HGB Conc 33.5 g/dl (31.0-35.0); Mean Corpuscular Hemoglobin 30.8 pg (27.0-33.0); Mean Corpuscular Volume 92.1 fL (80.0-98.0); Mean Platelet Volume 10.4 fL (9.4-12.3); Monocytes Absolute Auto 0.4 X10*3/uL (0.1-1.2); Monocytes Percent Auto 5.5 % (2-11); Neutrophils Absolute Auto 5.1 x10*3/uL (2.0-8.3); Neutrophils Percent Auto 79.3 % (45-73); Platelet Count 140 X10*3/uL (160-400); Red Blood Count 2.53 X10*6/uL (4.20-5.50); Red Cell Distribution Width 21.1 % (11.0-16.0); White Blood Count 6.4 X10*3/uL (4.8-10.8)
[2024-09-19 06:29] LABS: Anion Gap 13 (12-20); Blood Urea Nitrogen 62 mg/dL (9-16); Calcium 8.2 mg/dL (8.4-10.2); Carbon Dioxide 24 mmol/L (22-29); Chloride 106 mmol/L (96-108); Estimated Glomerular Filt Rate 14; Glucose Random 86 mg/dL (60-115); Potassium 4.5 mmol/L (3.3-5.1); Sodium 138 mmol/L (135-145)
== END 2024-09-19 05:46 | disposition home or self-care (01) ==
LOC: HO.MMNH1L 05:45
PROVIDERS: Visit Provider Family Medicine
DX: E11.9 Type 2 diabetes mellitus without complications (principal)
CPT/HCPCS: 36415; 80048; 85025

== ENCOUNTER 2024-09-26 05:42 | Outpatient (REF) | payer MEDICARE, SELFPAY ==
[2024-09-26 05:37] LABS: MANUAL DIFF FLAG NO
[2024-09-26 06:29] LABS: Eosinophils Percent Auto 0.2 % (0-4); Hematocrit 25.4 % (37.0-47.0); Hemoglobin 8.2 g/dl (12.0-16.0); Imm Gran Abs Auto 0.09 X10*3/uL (0.00-0.03); Imm Gran Pct Auto 1.6 % (0.0-0.4); Lymphocytes Absolute Auto 0.7 X10*3/uL (1.2-4.9); Lymphocytes Percent Auto 12.6 % (20-40); Mean Corpuscular HGB Conc 32.3 g/dl (31.0-35.0); Mean Corpuscular Hemoglobin 31.1 pg (27.0-33.0); Mean Corpuscular Volume 96.2 fL (80.0-98.0); Mean Platelet Volume 10.7 fL (9.4-12.3); Monocytes Absolute Auto 0.4 X10*3/uL (0.1-1.2); Monocytes Percent Auto 7.4 % (2-11); NRBC Pct Auto 0.3 /100WBC (0.0-0.2); Neutrophils Absolute Auto 4.5 x10*3/uL (2.0-8.3); Neutrophils Percent Auto 78.2 % (45-73); Platelet Count 113 X10*3/uL (160-400); Red Blood Count 2.64 X10*6/uL (4.20-5.50); Red Cell Distribution Width 20.3 % (11.0-16.0); White Blood Count 5.8 X10*3/uL (4.8-10.8)
[2024-09-26 06:37] LABS: Anion Gap 13 (12-20); Blood Urea Nitrogen 65 mg/dL (9-16); Calcium 7.8 mg/dL (8.4-10.2); Carbon Dioxide 21 mmol/L (22-29); Chloride 108 mmol/L (96-108); Estimated Glomerular Filt Rate 13; Glucose Random 110 mg/dL (60-115); Potassium 4.2 mmol/L (3.3-5.1); Sodium 138 mmol/L (135-145)
== END 2024-09-26 05:43 | disposition home or self-care (01) ==
LOC: HO.MMNH1L 05:42
PROVIDERS: Visit Provider Family Medicine
DX: E11.9 Type 2 diabetes mellitus without complications (principal)
CPT/HCPCS: 36415; 80048; 85025

== ENCOUNTER 2024-10-02 17:00 | Outpatient (REF) | payer MEDICARE, SELFPAY ==
--- OUTSIDE RECORDS SUMMARY | 2024-10-03 07:43 | XMS_ITS | Clinical Summary ---
Author Organization [facility] Address [address] [place] [address] Care Team Providers Care Plasma Cutting Machine Operator Name Role Phone GurpreetEloisa Primary Care Provider [phone] Allergies No known active allergies Medications Medication [...] age to complete this topic Care Teams Plasma Cutting Machine Operator Relationship Specialty Start Date End Date Eloisa Vázquez DO [address] [place] [address] PCP - General Internal Medicine 04/07/24
--- OUTSIDE RECORDS SUMMARY | 2024-10-03 07:43 | XMS_ITS | Clinical Summary ---
Author Organization [facility] Address [address] [place] [address] Care Team Providers Care Costuming Supervisor Name Role Phone Eloisa Vázquez DO Primary Care Provider [phone] Allergies No known active allergies Medications cetirizine [...] Kana Fernández or Maribeth d/t onsite HD. [facility] accepting w family to provide HD [...] general and how their size, shape, and environmental change analyst time affect her level of suspicion for [...] weeks. 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 Hypertension 06/01/2024 Hyperlipidemia 06/01/2024 [...] EDT - 09/13/2024 12:[address] [facility] Emergency [address] [place] [address] Anthony Sparks MD Fall, initial encounter (Primary Dx); Acute cystitis without hematuria Discharge Disposition: Home or Self Care 09/06/2024 4:40 PM EDT Office Visit Endocrinology [address] [phone] Kathy Michelle PA Type 2 diabetes mellitus without complication, without long-term current use of insulin (CMS/HCC) (Primary Dx); CKD (chronic kidney disease) stage 4, GFR 15-29 ml/min (CMS/HCC); Primary hypertension 08/23/2024 3:00 PM EST Office Visit Gastroenterology - [facility] 299 [facility] [address] [place] [phone] Josiane Smith, JUNITO Iron deficiency anemia, unspecified iron deficiency anemia type; History of cancer of unknown primary site 08/22/2024 8:30 AM EST - 08/22/2024 11:59 PM EST Hospital Encounter [facility] [address] [place] [phone] Chencho Wayne MD Crescentic glomerulonephritis (Primary Dx); Cresentic glomerulonephritis of transplanted kidney Discharge Disposition: Home or Self Care 08/22/[address] [phone] Haley Andrews [facility] 08/15/2024 1:30 PM EST Office Visit Thoracic Surgery - [place] 299 [facility] [address] [place] [address] Cecily Montez MD Pulmonary nodule (Primary Dx); Lung mass 08/11/[address] [phone] Nalini Clark RN 08/10/2024 10:00 AM EST Office [address] [facility] Hematology Oncology [address] [place] [phone] Jaime Grimaldo MD Lung mass (Primary Dx); Normocytic anemia; Chronic renal failure, stage 5 (CMS/HCC) 08/09/2024 Telephone Nephrology [address] [address] Chencho Wayne MD provider call back 08/05/2024 11:46 AM EST Anesthesia Event [facility] OR [address] [place] [phone] Monroe Kim MD 08/05/2024 11:30 AM EST - 08/05/2024 1:30 PM EST Surgery [facility] OR [address] [place] [phone] Cecily Montez MD Navigation bronchoscopy/EBUS [52021 (CPT??) +2 more] 08/01/2024 Telephone [facility] [address] [place] [phone] Eloisa Vázquez DO Forms/questionnaires (PFML) 07/08/2024 10:31 AM EST - 08/06/2024 1:09 PM EST Hospital Encounter [facility] Urology Unit [address] [place] [address] Jj Wolfe MD Flores, Carlos M, MD Japaridze, Anna, MD Santoyo-Pacheco, Omar D, MD Kokosadze, MD Kareen Musa James T, MD Seralathan, Manikandan, MD Anemia, unspecified type (Primary Dx); Hyponatremia; Acute on chronic renal insufficiency; Acute encephalopathy; Bilateral leg edema; Pulmonary nodule Discharge Disposition: Senior Living Facility 07/05/2024 Telephone [facility] - [facility] [address] [facility] [address] [place] [address] Primo Navarro MD Pre-op Visit from Last 3 Months Surgical History Surgery Date Site/Laterality Comments OTHER SURGICAL HISTORY 05/2012 PROCEDURE: ---- OTHER ----; COMMENT: lumbar microdiscectomy CATARACT EXTRACTION 2019 Bilateral PROCEDURE: HISTORICAL CATARACT REMOVAL Medical History Medical History Date Comments Diabetes mellitus, type 2 ([facility]/HCC) 02/14/2014 DX:Diabetes mellitus, type 2 (HCC) Hyperlipidemia [...] 10/17/2024 1:20 PM EDT Telemedicine Endocrinology - [place] [address] [place] [address] Kathy Michelle PA [address] [place] [address] 11/11/2024 11:00 AM EDT Ancillary Procedure [facility] - [facility] [address] [facility] [address] [place] [phone] 11/14/2024 11:[address] [facility] CT Scan [address] [place] [phone] 11/18/2024 2:15 PM EDT Office Visit Internal Medicine - [facility] [address] [place] [address] Eloisa Vázquez DO [address] [place] [address] 12/01/2024 10:00 AM EDT Office Visit Thoracic Surgery - [place] [address] [phone] Cecily Montez MD [address] [address] Health Maintenance Due Date Last Done Comments [...] topic Medical Devices Implanted Type Area Business Process Associate Device Identifier Shelf Expiration Date Model / Serial / Lot Cath Dial W/Vt Kt 14.0oa52di Palindrome Precision - [id number] - [id number] Implanted:Qty: 1 on 07/15/2024 by Fela Palomo MD at [facility] Dialysis Catheters Left: Chest Wall [facility] [id number] 09/26/2028 [id number] [id number] / [id number] Sponge Surgifoam Gel 12 X 7mm - [id number] - [id number] Implanted:Qty: 1 on 05/23/2024 by Fela Palomo MD at [facility] Hemostasis Right: Lung [employer] [id number] 08/27/20271971 [id number] / Sponge Surgifoam Gel 12 X 7mm - [id number] - [id number] Implanted:Qty: 1 on 07/22/2024 by Fela Palomo MD at [facility] Hemostasis Left: Kidney [employer] [id number] 05/24/20281971 [id number] / Procedures Procedure Name Priority Date/Time Associated [...] ENDOTRACHEAL(NO CHARGE) Routine 08/05/2024 12:08 PM EST MT BRONCHOSCOPY RIGID/FLEXIBLE W/EBUS >=3 MEDIASTINAL/HILAR LYMPH NODES 08/05/2024 11:46 AM EST Pulmonary nodule MT BRONCHOSCOPY INCL FLUROSCOPIC GUIDANCE W PLCMNT FIDUCIAL MARKER SGL/MULT 08/05/2024 11:46 AM EST Pulmonary nodule MT BRONCHOSCOPY RIGID/FLEXIBLE INCL FLUORO W/THERAPY ASPIRATION INITIAL [...] BLOOD Routine 07/11/2024 8: 17 AM EST MT IMMUNOFIXATION ELECTROPHORESIS SERUM Routine 07/11/2024 6:21 AM [...] BLOOD Routine 07/08/2024 6: 19 PM EST MT PROTEIN ELECTROPHORETIC FRACTIONATION & QUANTITATION SERUM Routine [...] deficiency anemia, unspecified Cataract, diabetic (CMS/HCC) Hyperlipemia [facility] DEXA AXIAL SKELETON Routine 04/15/20 10:29 AM [...] the time period is included. Pathologist [facility] Ventricular Rate ECG 83 BPM GEMUSE Atrial Rate 83 BPM GEMUSE P-R Interval 178 ms GEMUSE QRS Duration 130 ms GEMUSE Q-T Interval 394 ms GEMUSE QTc 462 ms GEMUSE P Wave [place] 66 degrees GEMUSE R [place] 15 degrees GEMUSE T [place] 11 degrees GEMUSE ECG Interpretation Sinus rhythm with Premature atrial complexes Right bundle branch block Abnormal ECG When compared with ECG of 12-SEP-2024 21:12, No significant change was found Confirmed by MD Ramon, [place] ([id number]) on 09/14/2024 10:02:49 AM GEMUSE 09/12/2024 9:12 PM EDT 09/14/2024 10:02 AM EDT Jose HEDRICK ECG ORDERABLES Final Result GEMUSE * (ABNORMAL) Troponin I high sensitivity (NOW and then in 1 hour) (09/12/2024 8:27 PM EDT) Only the most recent of4 resultswithin the time period is included. [facility] High Sensitivity Troponin I 110(H) <=54 ng/L LAB CHEMISTRY METHOD 09/12/2024 10:11 PM EDT [facility] Blood Venous blood specimen / Unknown Venipuncture / Unknown 09/12/2024 8:27 PM EDT 09/12/2024 9:33 PM EDT Narrative [facility] - 09/12/2024 10:11 PM EDT High levels of biotin in samples may falsely decrease hsTroponin values. ??Use caution when interpreting hsTroponin results in patients taking biotin who exhibit renal impairment (eGFR <60) or in patients taking more than 20 mg/day of biotin. us Madan Braga MD LAB BLOOD ORDERABLES Final Resu lt [facility] [address] [place] [address], * CT Cervical Spine wo Contrast (09/12/2024 [...] resultswithin the time period is included. Specific [place] Urine 1.025 1.003 - 1.030 LAB URINALYSIS - AUTOMATED METHOD 09/12/2024 8:45 PM [facility] pH, Urine 6.5 5.0 - 8.0 pH LAB URINALYSIS - AUTOMATED METHOD 09/12/2024 8:45 PM [facility] Leukocytes, Urine Moderate(A) Negative LAB URINALYSIS - AUTOMATED METHOD 09/12/2024 8:45 PM [facility] Nitrite, Urine Negative Negative LAB URINALYSIS - AUTOMATED METHOD 09/12/2024 8:45 PM [facility] Protein, Urine >=300(A) <=Trace mg/dL LAB URINALYSIS - AUTOMATED METHOD 09/12/2024 8:45 PM [facility] Glucose, Urine 100(A) Negative mg/dL LAB URINALYSIS - AUTOMATED METHOD 09/12/2024 8:45 PM [facility] Ketones, Urine Negative Negative mg/dL LAB URINALYSIS - AUTOMATED METHOD 09/12/2024 8:45 PM [facility] Urobilinogen , Urine 0.2 0.2 - 1.0 mg/dL LAB URINALYSIS - AUTOMATED METHOD 09/12/2024 8:45 PM [facility] Bilirubin, Urine Negative Negative LAB URINALYSIS - AUTOMATED METHOD 09/12/2024 8:45 PM [facility] Blood, Urine Large(A) Negative LAB URINALYSIS - AUTOMATED METHOD 09/12/2024 8:45 PM [facility] RBC, Urine 10(H) 0 - 4 /HPF 09/12/2024 8:45 PM [facility] WBC, Urine >100(H) 0 - 4 /HPF 09/12/2024 8:45 PM EDT [facility] Squamous Epithelial, Urine 50 0 - 60 /LPF 09/12/2024 8:45 PM EDT [facility] Non-Squamous Epithelial, Urine 2-5 Transitional epithelial cells. /LPF 09/12/2024 8:45 PM EDT [facility] Bacteria, Urine Many(A) Negative /HPF 09/12/2024 8:45 PM EDT [facility] Hyaline Casts, Urine 3 0 - 3 /LPF 09/12/2024 8:45 PM EDT [facility] Other Casts, Urine 2-5 Coarse Granular casts. Rare Fine Granular casts. Rare Waxy casts. /LPF 09/12/2024 8:45 PM EDT [facility] Urine Urine specimen obtained by clean catch procedure / Unknown Non-blood Collection / Unknown 09/12/2024 6:38 PM EDT 09/12/2024 7:59 PM EDT Anthony Sparks MD LAB URINE ORDERABLES Final Result Performing Organization Address [facility] Co de Phone Number [facility] [address] [place] [address], [place] [phone] * Robertson urine culture tube (09/12/2024 6:38 PM EDT) Only the most recent of3 resultswithin the time period is included. Extra Tube Hold for add-ons. 09/12/2024 9:01 PM EDT [facility] Comment:Auto resulted. Urine Urine specimen obtained by clean catch procedure / Unknown Non-blood Collection / Unknown 09/12/2024 6:38 PM EDT 09/12/2024 7:59 PM EDT Anthony Sparks MD LAB URINE ORDERABLES Final Result [facility] [address] [place] [address], * (ABNORMAL) Culture urine (09/12/2024 6:38 PM EDT) Only the most recent of2 resultswithin the time period is included. Culture, Urine >100,000 CFU/mL Pseudomonas aeruginosa(A) KIRILL 09/16/2024 9:53 AM EDT [facility] Comment: This is an edited result. Previous organism was Gram negative bacilli on 09/15/2024 at 1216 EDT. Culture, Urine >100,000 CFU/mL Enterococcus faecalis(A) KIRILL 09/16/2024 9:53 AM EDT [facility] Comment: The organism value for this [...] LAB MICROBIOLOGY - GENERAL ORDERABLES Final Result [facility] [address] [place] [address], * (ABNORMAL) CBC auto differential (09/12/2024 6:22 PM EDT) Only the most recent of23 resultswithin the time period is included. WBC 6.9 4.8 - 10.8 K/mcL LAB HEMETOLOGY METHOD 09/12/2024 6:51 PM EDT [facility] RBC 2.80(L) 3.80 - 4.80 M/mcL LAB HEMETOLOGY METHOD 09/12/2024 6:51 PM EDT [facility] Hemoglobin 8.2(L) 11.5 - 16.0 g/dL LAB HEMETOLOGY METHOD 09/12/2024 6:51 PM EDT [facility] Hematocrit 25.2(L) 35.0 - 47.0 % LAB HEMETOLOGY METHOD 09/12/2024 6:51 PM EDT [facility] MCV 90.0 79.0 - 98.0 FL LAB HEMETOLOGY METHOD 09/12/2024 6:51 PM EDT [facility] MCH 29.3 27.0 - 32.0 pcg LAB HEMETOLOGY METHOD 09/12/2024 6:51 PM EDT [facility] MCHC 32.5 32.0 - 37.0 g/dL LAB HEMETOLOGY METHOD 09/12/2024 6:51 PM EDT [facility] RDW 20.2(H) 11.0 - 15.0 % LAB HEMETOLOGY METHOD 09/12/2024 6:51 PM EDT [facility] Platelets 179 130 - 400 K/mcL LAB HEMETOLOGY METHOD 09/12/2024 6:51 PM EDT [facility] MPV 10.4 7.0 - 11.0 FL LAB HEMETOLOGY METHOD 09/12/2024 6:51 PM EDT [facility] NRBC 0.0 <1.0 % LAB [facility]ETOLOGY [facility] Absolute 0.00 <0.10 K/mcL LAB HEMETOLOGY METHOD 09/12[facility]2024 6[facility] Neutrophils Relative 88.7 % LAB HEMETOLOGY METHOD 09/12/2024 6:51 PM EDT [facility] Lymphocytes Relative 6.7 % LAB HEMETOLOGY METHOD 09/12/2024 6:51 PM EDT [facility] Monocytes Relative 3.0 % LAB HEMETOLOGY METHOD 09/12/2024 6:51 PM [facility] Eosinophils Relative 0.1 % LAB HEMETOLOGY METHOD 09/12/2024 6:51 PM [facility] Basophils Relative 0.0 % LAB HEMETOLOGY METHOD 09/12/2024 6:51 PM [facility] Immature Granulocytes Relative 1.5 % LAB HEMETOLOGY METHOD 09/12/2024 6:51 PM [facility] Neutrophils Absolute 6.11 1.50 - 7.00 K/mcL LAB HEMETOLOGY METHOD 09/12/2024 6:51 PM [facility] Lymphocytes Absolute 0.46(L) 1.00 - 5.00 K/mcL LAB HEMETOLOGY METHOD 09/12/2024 6:51 PM T [facility] Monocytes Absolute 0.21 0.20 - 1.00 K/mcL LAB HEMETOLOGY METHOD 09/12/2024 6:51 PM [facility] Eosinophils Absolute 0.01 0.00 - 0.50 K/mcL LAB HEMETOLOGY METHOD 09/12/2024 6:51 PM [facility] Basophils Absolute 0.00 0.00 - 0.20 K/mcL LAB HEMETOLOGY METHOD 09/12/2024 6:51 PM EDT [facility] Immature Granulocytes Absolute 0.10(H) 0.00 - 0.03 K/mcL LAB HEMETOLOGY METHOD 09/12/2024 6:51 PM EDT [facility] Blood Venous blood specimen / Unknown Venipuncture / Unknown 09/12/2024 6:22 PM EDT 09/12/2024 6:42 PM EDT us Madan Braga MD LAB BLOOD ORDERABLES Final Resu lt [facility] [address] [place] [address], [place] [phone] * (ABNORMAL) Basic Metabolic Panel (BMP) (09/12/2024 6:22 PM EDT) Only the most recent of28 resultswithin the time period is included. Sodium 137 133 - 145 mmol/L LAB CHEMISTRY METHOD 09/12/2024 7:15 PM [facility] Potassium 4.1 3.5 - 5.5 mmol/L LAB CHEMISTRY METHOD 09/12/2024 7:15 PM [facility] Chloride 103 96 - 110 mmol/L LAB CHEMISTRY METHOD 09/12/2024 7:15 PM [facility] CO2 24 21 - 32 mmol/L LAB CHEMISTRY METHOD 09/12/2024 7:15 PM [facility] Anion Gap 10 3 - 11 LAB CHEMISTRY METHOD 09/12/2024 7:15 PM [facility] Glucose 204(H) 70 - 100 mg/dL LAB CHEMISTRY METHOD 09/12/2024 7:15 PM [facility] BUN 30(H) 5 - 25 mg/dL LAB CHEMISTRY METHOD 09/12/2024 7:15 PM [facility] Creatinine 2.36(H) 0.50 - 1.10 mg/dL LAB CHEMISTRY METHOD 09/12/2024 7:15 PM EDT [facility] eGFR 20(L) >=60 mL/min/1. 73m2 LAB CHEMISTRY METHOD 09/12/2024 7:15 PM EDT [facility] Comment:Calculation based on the??Chronic Kidney Disease Epidemiology Collaboration (CKD-EPI) equation refit??without adjustment for race. BUN/Creatinine Ratio 12.7 LAB CHEMISTRY METHOD 09/12/2024 7:15 PM EDT [facility] Calcium 8.0(L) 8.5 - 10.5 mg/dL LAB CHEMISTRY METHOD 09/12/2024 7:15 PM EDT [facility] Blood Venous blood specimen / Unknown Venipuncture / Unknown 09/12/2024 6:22 PM EDT 09/12/2024 6:42 PM EDT Madan Braga MD LAB BLOOD ORDERABLES Final Resu lt [facility] [address] [place] [address], [place] [phone] * (ABNORMAL) POCT Glucose, blood (08/06/2024 11:07 [...] Final Result [facility] [address] [place] [address], [place] [phone] * XR Chest 1 View (08/05/2024 1:43 [...] Signed Date: 08/05/2024 13:49 ET Workstation ID: [id number] Transcribed By: Self Edit Transcribed Date: 08/05/2024 [...] Signed Date: 08/05/2024 13:49 ET Workstation ID: [id number] Transcribed By: Self Edit Transcribed Date: 08/05/2024 [...] ORDER SYLVAIN Final Result Performing Organization Address City/[facility]/ZIP Co de Phone Number [facility] [address] [place] [address], [place] [phone] * Concentration (08/05/2024 12:32 PM EST) AFB Concentration Performed 5:05 PM EDT [facility] Structure of upper lobe of right lung / Unknown 08/05/2024 12:32 PM EST 08/05/2024 1:17 PM EST Narrative [facility] - 09/19/2024 5:05 PM EDT Performed at: ??01 - [facility] [address] ??[id number] Hand I Blocker: Diane Belle MD, Phone: ??[phone] Cecily Montez MD LAB BLOOD ORDERABLES Edited [...] PM EDT Performed at: ??01 - [facility] [address] ??[id number] Hand I Blocker: Diane Belle MD, Phone: ??[phone] us Cecily Montez MD LAB MICROBIOLOGY - [...] ORDER SYLVAIN Final Result Performing Organization Address City/[facility]/ZIP Co de Phone Number [facility] [address] [place] [address], [place] [phone] * Culture fungal, other (08/05/2024 12:32 PM EST) Pathologist [facility] Culture, Fungus Negative for Fungus after 4 Weeks 09/05/2024 8:16 AM EDT [facility] Wash Structure of upper lobe of right lung / Unknown 08/05/2024 12:32 PM EST 08/05/2024 1:17 PM EST us Cecily Montez MD LAB MICROBIOLOGY - GENERAL ORDER SYLVAIN Final Result Performing Organization Address City/[facility]/ZIP Co de Phone Number [facility] [address] [place] [address], [place] [phone] * Non-gynecologic cytology (08/05/2024 12:20 PM EST) [...] services provided by [facility], at [address] [place] [address] (CLIA # [id number]/Gladys Prince MD, Commercial Relief Driver.) 08/09/2024 1:04 PM [facility] [...] MD LAB CYTOLOGY ORDERABLES Final Re sult [facility] [address] [place] [address], [place] [phone] * TH AN ENDOTRACHEAL(NO CHARGE) (08/05/2024 12:08 PM EST) Candelaria Romano CRNA - 08/05/2024 12:08 PM EST Candelaria Tatum CRNA ? 08/05/2024 12:10 PM General Information and Staff Patient location during procedure: [place] Anesthesiologist: Monroe Kim MD Resident/[employer] OFFICER: Candelaria Tatum CRNA Performed: resident/[employer] OFFICER/CAA Performed by: Candelaria Tatum CRNA Authorized by: [...] of13 resultswithin the time period is included. [facility] WBC 8.8 4.8 - 10.8 K/mcL LAB [...] 7:42 AM EST [facility] Blood Venous blood specimen / Unknown Venipuncture / Unknown 08/05/2024 7:03 AM EST 08/05/2024 7:34 AM EST Lencho Stuart MD LAB BLOOD ORDERABLES Final R esult Performing Organization Address [facility] de Phone Number [facility] [address] [place] [address], * (ABNORMAL) Creatinine, Serum - Every 7 [...] Re sult Performing Organization Address [facility] Co de Phone Number [facility] [address] [place] [address], [place] [phone] * Hepatitis B surface antigen with reflex to confirmation (08/03/2024 8:49 AM EST) Only the most recent of3 resultswithin the time period is included. Hepatitis B Surface Ag Negative Negative LAB CHEMISTRY METHOD 08/03/2024 10:11 AM EST [facility] Blood Venous blood specimen / Unknown Venipuncture / Unknown 08/03/2024 8:49 AM EST 08/03/2024 9:22 AM EST [facility] - 08/03/2024 10:11 AM EST Over the counter supplements containing high doses of biotin may interfere with this assay. ??If interference is suspected, patients shoud be retested after refraining from biotin supplements for 72 hours. Steve Cruz MD LAB BLOOD ORDERABLES Fi nal Result Performing Organization Address City/[facility]/ZIP Co de Phone Number [facility] [address] [place] [address], * Hepatitis B surface antibody quantitative (08/03/2024 [...] 8:49 AM EST 08/03/2024 9:22 AM EST [facility] - 08/03/2024 9:59 AM EST >=10 mIU/mL is considered to be consistent with immunity. Steve Cruz MD LAB BLOOD ORDERABLES Fi nal Result Performing Organization Address City/[facility]/ZIP Co de Phone Number [facility] [address] [place] [address], * Phosphorus (08/03/2024 6:01 AM EST) Only [...] ORDERABLES Fi nal Result Performing Organization Address City/[facility]/ZIP Co de Phone Number [facility] [address] [place] [address], * Magnesium (08/03/2024 6:01 AM EST) Only [...] ORDERABLES Fi nal Result Performing Organization Address City/[facility]/ZIP Co de Phone Number [facility] [address] [place] [address], * Type and screen (08/02/2024 3:04 PM EST) Only the most recent of4 resultswithin the time period is included. ABO Group O 08/02/2024 4:52 PM EST [facility] Rh Type Positive 08/02/2024 4:52 PM EST [facility] Antibody Screen Negative 08/02/2024 4:52 PM EST [facility] Blood Venous blood specimen / Unknown Venipuncture / Unknown 08/02/2024 3:04 PM EST 08/02/2024 4:07 PM EST Steve Cruz MD LAB BLOOD BANK TEST ORD ERABLES Final Result Performing Organization Address City/[facility]/ZIP Co de Phone Number [facility] [address] [place] [address], * Prepare RBC: 1 Units (08/02/2024 2:09 PM EST) Only the most recent of4 resultswithin the time period is included. Product Code [id number] 08/02/2024 6:27 PM EST [facility] Unit Number [id number] 08/02/19 6:27 PM EST [facility] Crossmatch Compatible 08/02/2024 5:03 PM [facility] Dispense Status Transfused 08/02/2024 6:27 PM [facility] Unit ABO Rh OPOS 08/02/2024 6:27 PM [facility] Unit Expiration Date Time [id number] 08/02/2024 6:27 PM [facility] Unit Blood Type 5100 08/02/2024 6:27 PM [facility] Blood Venous blood specimen / Unknown 08/02/2024 2:09 PM EST 08/02/2024 4:07 PM EST Steve Cruz MD BLOOD BANK PRODUCT ORDE RABLES Final Result [facility] [address] [place] [address], * (ABNORMAL) Hemoglobin and hematocrit (07/31/2024 2:30 [...] Re sult [facility] [address] [place] [address], [place] [phone] * (ABNORMAL) Hepatic Function Panel - STAT [...] LAB CHEMISTRY METHOD 07/30/2024 12:56 PM EST [facility] Blood Venous blood specimen / Unknown Venipuncture / Unknown 07/30/2024 11:52 AM EST 07/30/2024 12:28 PM EST Jonny Mathur MD LAB BLOOD ORDERABLES Final Re sult Performing Organization Address [facility]/ZIP Co de Phone Number [facility] [address] [place] [address], [place] [phone] * (ABNORMAL) Heparin and low molecular weight anti Xa level (07/30/2024 6:10 AM EST) Only the most recent of32 resultswithin the time period is included. Pathologist [facility] Heparin Anti-Xa 1.16(H) 0.30 - 0.70 I [...] ORDERABLES Final Re sult Performing Organization Address City/[facility]/ZIP Co de Phone Number [facility] [address] [place] [address], [place] [phone] * Hepatitis B core antibody IgM (07/28/2024 [...] Res ult Performing Organization Address [facility] Co de Phone Number [facility] [address] [place] [address], * Hepatitis B surface antibody (07/28/2024 12:19 [...] Res ult Performing Organization Address [facility] Co de Phone Number [facility] [address] [place] [address], [place] [phone] * Transfuse RBC (07/23/2024 6:19 PM EST) Only the most recent of3 resultswithin the time period is included. Lencho Stuart MD BLOOD TRANSFUSION ORDERABLES Final Result * Insert Midline (07/23/2024 4:52 PM EST) Narrative Maggy Spencer, RN - 07/23/2024 4:52 PM EST Maggy Spencer RN ? 07/23/2024 ??5:02 PM Midline Insertion Procedure Note Procedure: Insertion of 18g/10cm Bard Powerglide midline Lot: [id number] Exp: 2025-05-28 Indications: ??Difficult draw with frequent [...] Signed Date: 07/22/2024 17:00 ET Workstation ID: [id number] Transcribed By: Self Edit Transcribed Date: 07/22/2024 [...] of fentanyl administered during the procedure. Scanner: Uanbai Bright[employer] [address] Dose reduction technique: [...] of fentanyl administered during the procedure. Scanner: Uanbai Brightspeed [address] Dose reduction technique: [...] Signed Date: 07/22/2024 17:00 ET Workstation ID: [id number] Transcribed By: Self Edit Transcribed Date: 07/22/2024 [...] Tissue exam (07/22/2024 3:13 PM EST) Addendum [facility] Kidney (addendum) This case was sent to [facility], Department of Pathology, [place], [place] (CLIA: [id number]). Their diagnosis is summarized as follows: Pathologic [...] report for full kidney biopsy diagnosis from [facility], [place], [place]) 08/12/2024 10:52 AM [facility] Addendum electronically signed by Mitchell Prince MD on 08/12/2024 at 10:52 AM Final Diagnosis Kidney, left-biopsies for routine, immunofluorescence and electron microscopy: -Submitted in toto to [facility] -See addendum report 08/12/2024 10:52 AM [facility] [...] microscopy. The specimen is entirely submitted to [facility] for analysis. ELOISE 08/12/2024 10:52 AM [facility] Disclaimer Unless otherwise specified, all tissue is 10% NB formalin fixed and paraffin embedded. 08/12/2024 10:52 AM [facility] Tissue Left kidney structure / Unknown 07/22/2024 3:13 PM EST 07/22/2024 3:39 PM EST us Fela Palomo MD LAB PATHOLOGY ORDERABLES Edited Result - Final Performing Organization Address [facility] Co de Phone Number [facility] [address] [place] [address], [place] [phone] * (ABNORMAL) Prothrombin time with INR (07/22/2024 [...] R esult Performing Organization Address [facility] Co de Phone Number [facility] [address] [place] [address], * SST tube (07/22/2024 10:53 AM EST) Only the most recent of2 resultswithin the time period is included. Extra Tube Hold for add-ons. 07/22/2024 1:01 PM EST [facility] Comment:Auto resulted. Blood Venous blood specimen / Unknown 07/22/2024 10:53 AM EST 07/22/2024 11:25 AM EST Lencho Stuart MD LAB BLOOD ORDERABLES Final R esult Performing Organization Address [facility] Co de Phone Number [facility] [address] [place] [address], * Lavender tube (07/22/2024 10:53 AM EST) Pathologist [facility] Extra Tube Hold for add-ons. 07/22/2024 1:01 PM EST [facility] Comment:Auto resulted. Blood Venous blood specimen / Unknown 07/22/2024 10:53 AM EST 07/22/2024 11:25 AM EST us Lencho Stuart MD LAB BLOOD ORDERABLES Final R [facility] Performing Organization Address [facility] de Phone Number [facility] [address] [place] [address], * Activated Partial Thromboplastin Time - STAT (07/20/2024 2:30 PM EST) Only the most recent of2 resultswithin the time period is included. Pathologist [facility] aPTT 30.0 24.1 - 39.3 sec LAB COAGULATION METHOD 07/20/2024 3:06 PM EST [facility] Blood Venous blood specimen / Unknown Venipuncture / Unknown 07/20/2024 2:30 PM EST 07/20/2024 2:52 PM EST Lencho Stuart MD LAB BLOOD ORDERABLES Final R esult Performing Organization Address [facility] Co de Phone Number [facility] [address] [place] [address], * (ABNORMAL) Microalbumin creatinine urine ratio (07/19/2024 [...] Res ult Performing Organization Address [facility]/ZIP Co de Phone Number [facility] [address] [place] [address], [place] [phone] * Creatinine, urine, random (07/19/2024 12:01 PM [...] ORDERABLES Final Res ult Performing Organization Address City/[facility]/ZIP Co de Phone Number [facility] [address] [place] [address], [place] [phone] * (ABNORMAL) Parathyroid hormone related protein (07/19/2024 [...] analytical performance characteristics have been determined by [employer]. It has not been cleared or approved by FDA. This assay has been validated pursuant to the CLIA regulations and is used for clinical purposes. Test Performed at: [facility] [address], [place] ??[id number] ? I Bethany GUERRERO, PhD, NINA Blood Venous blood specimen / Unknown Venipuncture / Unknown 07/19/2024 7:55 AM EST 07/19/2024 7:55 AM EST us Jesus Manuel HEDRICK LAB BLOOD ORDERABLES Final Resu lt [facility] [address] [place] [address] * (ABNORMAL) Anti-neutrophilic cytoplasmic antibody [...] Res ult [facility] [address] [place] [address], [place] [phone] * (ABNORMAL) Urinalysis microscopic only (07/18/2024 6:09 AM EST) RBC, Urine 10(H) 0 - 4 /HPF 07/18/2024 7:53 AM EST [facility] WBC, Urine >100(H) 0 - 4 /HPF 07/18/2024 7:53 AM EST [facility] Squamous Epithelial, Urine 10 0 - 60 /LPF 07/18/2024 7:53 AM EST [facility] Non-Squamous Epithelial, Urine 2-5 Transitional [...] MD LAB URINE ORDERABLES F inal Result [facility] [address] [place] [address], * (ABNORMAL) Calcium, ionized (07/18/2024 6:07 AM EST) Only the most recent of2 resultswithin the time period is included. Calcium Ionized 4.28(L) 4.50 - 5.30 mg/dL 07/18/2024 6:46 AM [facility] Blood Venous blood specimen / Unknown 07/18/2024 6:07 AM EST 07/18/2024 6:33 AM EST us Gian Crum MD LAB BLOOD ORDERABLES F inal Result [facility] [address] [place] [address], [place] [phone] * Vascular US duplex lower extremity venous [...] Signed Date: 07/16/2024 12:33 ET Workstation ID: [id number] Transcribed By: Self Edit Transcribed Date: 07/16/2024 [...] Signed Date: 07/16/2024 12:33 ET Workstation ID: [id number] Transcribed By: Self Edit Transcribed Date: 07/16/2024 12:28 ET Gian Crum MD CV VASCULAR PROCEDURES Final Result * IR Insert Tunneled CVC wo Port or Pump More 5yrs Left (07/15/2024 3:36 PM EST) Anatomical Region Laterality Modality Left Interventional R adiology 07/15/2024 3:45 PM EST Impressions 07/15/2024 3:47 PM EST Successful placement of a 14 Moroccan 23 cm dual-lumen cuffed tunneled dialysis catheter with the tip at the cavoatrial junction. This line may be used immediately. -------- FINAL REPORT -------- Dictated By: Fela Palomo Dictated Date: 07/15/2024 15:45 ET Assigned Physician: Fela Palomo Reviewed and Electronically Signed By: Fela Palomo Signed Date: 07/15/2024 15:47 ET Workstation ID: [id number] Transcribed By: Self Edit Transcribed Date: 07/15/2024 [...] The needle was exchanged for the 4 Moroccan transition sheath. A 0.035 wire was then advanced through ??the sheath and into the inferior vena cava under fluoroscopy. The sheath was then exchanged for a 7 Moroccan vascular dilator. Attention was then turned to the right upper chest and the appropriate area was anesthetized with 2% lidocaine. A small dermatotomy was performed and then a tunnel was created from the dermatotomy to the initial venous access site. The catheter was advanced through the tunnel. ??The initial venous access site was then serially dilated up to a 15 Moroccan peel-away sheath. The catheter was then advanced [...] The needle was exchanged for the 4 Moroccan transition sheath. A 0.035wire was then advanced through the sheath and into the inferior vena cavaunder fluoroscopy. The sheath was then exchanged for a 7 Moroccan vasculardilator. Attention was then turned to the right upper chest and the appropriatearea was anesthetized with 2% lidocaine. A small dermatotomy was performedand then a tunnel was created from the dermatotomy to the initial venousaccess site. The catheter was advanced through the tunnel. The initialvenous access site was then serially dilated up to a 15 Moroccan peel-awaysheath. The catheter was then advanced through [...] mGy IMPRESSION: Successful placement of a 14 Moroccan 23 cm dual-lumen cuffed tunneleddialysis catheter with the tip at the cavoatrial junction. This line maybe used immediately. -------- FINAL REPORT -------- Dictated By: Fela Palomo Dictated Date: 07/15/2024 15:45 ET Assigned Physician: Fela Palomo Reviewed and Electronically Signed By: Fela Palomo Signed Date: 07/15/2024 15:47 ET Workstation ID: [id number] Transcribed By: Self Edit Transcribed Date: 07/15/2024 [...] ORDERABLES Final Resu lt Performing Organization Address City/[facility]/ZIP Co de Phone Number [facility] [address] [place] [address], [place] [phone] * (ABNORMAL) RBC morphology review (07/15/2024 6:56 AM EST) Pathologist [facility] Rbc Morphology Present( A) Consistent with indices, [...] inal Result [facility] [address] [place] [address], [place] [phone] * Extractable Nuclear Antibodies Profile (07/14/2024 6:00 AM EST) SM Ab Negative Negative LAB CHEMISTRY METHOD 07/17/2024 12:29 PM EST [facility] SM Antibody Quant 2 <20 units LAB CHEMISTRY METHOD 07/17/2024 12:29 PM EST [facility] [employer] Ab Negative Negative LAB CHEMISTRY METHOD 07/17/2024 12:29 PM EST [facility] [employer]CH[employer]IAN Antibody Quant 1 <20 units LAB CHEMISTRY METHOD 07/17/2024 12:29 PM EST [facility] Blood Venous blood specimen / Unknown 07/14/2024 6:00 AM EST 07/14/2024 6:35 AM EST us Gian Crum MD LAB BLOOD ORDERABLES F inal Result Performing Organization Address City/[facility]/ZIP Co de Phone Number [facility] [address] [place] [address], [place] [phone] * (ABNORMAL) C3 complement (07/14/2024 6:00 AM EST) C3 Complement 78(L) 88 - 201 mg/dL LAB CHEMISTRY METHOD 07/14/2024 11:20 AM EST [facility] Blood Venous blood specimen / Unknown 07/14/2024 6:00 AM EST 07/14/2024 6:35 AM EST us Gian Crum MD LAB BLOOD ORDERABLES F inal Result [facility] [address] [place] [address], [place] [phone] * C4 complement (07/14/2024 6:00 AM EST) C4 Complement 18 16 - 47 mg/dL LAB CHEMISTRY METHOD 07/14/2024 11:20 AM EST [facility] Blood Venous blood specimen / Unknown 07/14/2024 6:00 AM EST 07/14/2024 6:35 AM EST us Gian Crum MD LAB BLOOD ORDERABLES F inal Result Performing Organization Address City/[facility]/ZIP Co de Phone Number [facility] [address] [place] [address], [place] [phone] * (ABNORMAL) Sedimentation rate (07/13/2024 6:38 AM EST) Pathologist [facility] Sed Rate 84(H) 0 - 30 mm/hr LAB HEMETOLOGY METHOD 07/13/2024 7:32 AM EST [facility] Blood Venous blood specimen / Unknown Venipuncture / Unknown 07/13/2024 6:38 AM EST 07/13/2024 6:51 AM EST us Gian Crum MD LAB BLOOD ORDERABLES F inal Result Performing Organization Address [facility] Co de Phone Number [facility] [address] [place] [address], [place] [phone] * Uric acid (07/13/2024 6:38 AM EST) Only the most recent of2 resultswithin the time period is included. Pathologist [facility] Uric Acid 7.5 3.1 - 7.8 mg/dL LAB CHEMISTRY METHOD 07/13/2024 7:44 AM EST [facility] Blood Venous blood specimen / Unknown Venipuncture / Unknown 07/13/2024 6:38 AM EST 07/13/2024 6:50 AM EST us Chencho Wayne MD LAB BLOOD ORDERABLES Final Resu lt Performing Organization Address [facility]/ZIP Co de Phone Number [facility] [address] [place] [address], [place] [phone] * (ABNORMAL) Protein and creatinine with ratio, [...] ORDERABLES Final Resu lt Performing Organization Address City/[facility]/ZIP Co de Phone Number [facility] [address] [place] [address], [place] [phone] * Sodium, urine, random (07/12/2024 3:27 PM EST) Sodium, Ur 34 mmol/L LAB CHEMISTRY METHOD 07/12/2024 6:44 PM [facility] Urine Urine specimen obtained by clean catch procedure / Unknown Non-blood Collection / Unknown 07/12/2024 3:27 PM EST 07/12/2024 4:10 PM EST Aye HEDRICK LAB URINE ORDERABLES Final Re sult [facility] [address] [place] [address], [place] [phone] * Osmolality, urine (07/12/2024 3:27 PM EST) Osmolality, Urine 397 300 - 1,300 mOsm/kg LAB CHEMISTRY METHOD 07/12/2024 5:57 PM EST [facility] Urine Urine specimen obtained by clean catch procedure / Unknown Non-blood Collection / Unknown 07/12/2024 3:27 PM EST 07/12/2024 4:10 PM EST us Aye HEDRICK LAB URINE ORDERABLES Final Re sult [facility] ([facility] [address] [place] [address], [place] [phone] * CT Chest wo Contrast (07/12/2024 12:48 PM EST) Anatomical Region Laterality Modality Body Computed Tomogra phy 07/12/2024 1:07 PM EST Impressions 07/12/2024 1:19 PM EST Impression: 1. No significant change in an irregular juxtapleural nodular opacity in the right lung apex. Malignancy is not excluded. 2. No developing lymphadenopathy. 3. Small bilateral pleural effusions, new. Starr HEDRICK ([id number]) -------- FINAL REPORT -------- Dictated By: Edilia Durbin Dictated Date: 07/12/2024 13:07 ET Assigned Physician: Edilia Durbin Reviewed and Electronically Signed By: Edilia Durbin Signed Date: 07/12/2024 13:19 ET Workstation ID: [id number] Transcribed By: Self Edit Transcribed Date: 07/12/2024 13:07 ET Narrative 07/12/2024 1:19 PM EST History: Abnormal chest radiograph. The patient underwent nondiagnostic CT- guided biopsy of the right apical lung nodule on 05/23/24. Comparison: Thoracic CT 06/17/24, 03/21/24 Technique: Helical volumetric imaging of the thorax was performed without IV contrast. DLP: 613.10 mGy/cm Fuel3[employer] VCT Iterative reconstruction technique Findings: Respiratory motion [...] was performed withoutIV contrast. DLP: 613.10 mGy/cm Fuel3[employer] VCT Iterative reconstruction technique Findings: Respiratory motion [...] Small bilateral pleural effusions, new. Teleradha HEDRICK ([id number]) -------- FINAL REPORT -------- Dictated By: Edilia Durbin Dictated Date: 07/12/2024 13:07 ET Assigned Physician: Edilia Durbin Reviewed and Electronically Signed By: Edilia Durbin Signed Date: 07/12/2024 13:19 ET Workstation ID: [id number] Transcribed By: Self Edit Transcribed Date: 07/12/2024 [...] inal Result [facility] [address] [place] [address], [place] [phone] * (ABNORMAL) C-reactive protein (07/12/2024 6:19 AM EST) C-Reactive Protein 16.60(H) <=0.50 mg/dL LAB CHEMISTRY METHOD 07/12/2024 10:35 AM EST [facility] Blood Venous blood specimen / Unknown Venipuncture / Unknown 07/12/2024 6:19 AM EST 07/12/2024 6:56 AM EST us Gian Crum MD LAB BLOOD ORDERABLES F inal Result Performing Organization Address [facility]/ZIP Co de Phone Number [facility] [address] [place] [address], [place] [phone] * (ABNORMAL) Lipase (07/12/2024 6:19 AM EST) Only the most recent of2 resultswithin the time period is included. Pathologist [facility] Lipase <10(L) 13 - 75 unit/L LAB CHEMISTRY METHOD 07/12/2024 3:26 PM EST [facility] Blood Venous blood specimen / Unknown Venipuncture / Unknown 07/12/2024 6:19 AM EST 07/12/2024 6:56 AM EST us Gian Crum MD LAB BLOOD ORDERABLES F inal Result Performing Organization Address City/[facility]/ZIP Co de Phone Number [facility] [address] [place] [address], [place] [phone] * Pathologist Review Immunofixation (07/11/2024 6:21 AM EST) Pathologist [facility] Pathologist Interpretation Reviewed by Rosenda Galeana MD 07/13/2024 4:13 PM EST [facility] Blood Venous blood specimen / Unknown Venipuncture / Unknown 07/11/2024 6:21 AM EST 07/11/2024 6:43 AM EST Chencho Wayne MD LAB BLOOD ORDERABLES Final Resu lt [facility] [address] [place] [address], [place] [phone] * Immunofixation electrophoresis serum (07/11/2024 6:21 AM EST) Pathologist [facility] Immunofixation Result, Serum Faint restriction of IgG [place], not observed on SPEP . Follow-up in 6 months if clinically indicated. LAB CHEMISTRY METHOD 07/13/2024 4:13 PM EST [facility] Blood Venous blood specimen / Unknown Venipuncture / Unknown 07/11/2024 6:21 AM EST 07/11/2024 6:43 AM EST us Chencho Wayne MD LAB BLOOD ORDERABLES Final Resu lt [facility] [address] [place] [address], [place] [phone] * Immunoglobulins IgG, IgA, IgM (07/11/2024 6:21 AM EST) Pathologist [facility] Total IgG 1,090 549 - [...] ORDERABLES Final Resu lt Performing Organization Address [facility]/ZIP Co de Phone Number [facility] [address] [place] [address], [place] [phone] * (ABNORMAL) Triiodothyronine free (07/10/2024 5:16 AM EST) T3, Free 154(L) 230 - 420 pcg/dL LAB CHEMISTRY METHOD 07/10/2024 2:10 PM EST [facility] Blood Venous blood specimen / Unknown Venipuncture / Unknown 07/10/2024 5:16 AM EST 07/10/2024 6:42 AM EST us Maria Alejandra Melendez MD LAB BLOOD ORDERABLES Final Res ult Performing Organization Address [facility] de Phone Number [facility] [address] [place] [address], [place] [phone] * Thyroxine free (07/10/2024 5:16 AM EST) Free T4 0.92 0.70 - 1.80 ng/dL LAB CHEMISTRY METHOD 07/10/2024 2:04 PM EST [facility] Blood Venous blood specimen / Unknown Venipuncture / Unknown 07/10/2024 5:16 AM EST 07/10/2024 6:42 AM EST Maria Alejandra Melendez MD LAB BLOOD ORDERABLES Final Res ult Performing Organization Address City/[facility]/ZIP Co de Phone Number [facility] [address] [place] [address], [place] [phone] * (ABNORMAL) Parathyroid hormone intact (07/10/2024 5:16 AM EST) Only the most recent of2 resultswithin the time period is included. Pathologist [facility] PTH 10.5(L) 18.5 - 88.0 pcg/mL LAB CHEMISTRY METHOD 07/10/2024 1:47 PM EST [facility] Blood Venous blood specimen / Unknown Venipuncture / Unknown 07/10/2024 5:16 AM EST 07/10/2024 6:42 AM EST us Maria Alejandra Melendez MD LAB BLOOD ORDERABLES Final Res ult [facility] [address] [place] [address], * Creatine kinase (07/09/2024 6:25 AM EST) [facility] Total CK 172 22 - 269 unit/L LAB CHEMISTRY METHOD 07/09/2024 8:11 AM EST [facility] Blood Venous blood specimen / Unknown Venipuncture / Unknown 07/09/2024 6:25 AM EST 07/09/2024 7:11 AM EST us Aye HEDRICK LAB BLOOD ORDERABLES Final Re sult [facility] [address] [place] [address], [place] [phone] * Green LI heparin tube (07/08/2024 9:50 PM EST) [facility] Extra Tube Hold for add-ons. 07/09/2024 12:01 AM EST [facility] Comment:Auto resulted. Blood Venous blood specimen / Unknown 07/08/2024 9:50 PM EST 07/08/2024 10:41 PM EST Wayne Donahue MD LAB BLOOD ORDERABLES Final Re sult Performing Organization Address [facility] Co de Phone Number [facility] [address] [place] [address], [place] [phone] * Culture blood (07/08/2024 9:49 PM EST) Only the most recent of2 resultswithin the time period is included. Culture, Blood No growth at 5 days 07/13/2024 10:01 PM EST [facility] Blood Venous blood specimen / Unknown Venipuncture / Unknown 07/08/2024 9:49 PM EST 07/08/2024 9:54 PM EST Aye HEDRICK LAB MICROBIOLOGY - GENERAL OR DERABLES Final Result Performing Organization Address [facility] Co de Phone Number [facility] [address] [place] [address], * Lactate (07/08/2024 9:42 PM EST) [facility] Lactate 1.3 mmol/L 07/08/2024 10:30 PM EST [facility] Blood Venous blood specimen / Unknown Venipuncture / Unknown 07/08/2024 9:42 PM EST 07/08/2024 9:54 PM EST Aye HEDRICK LAB BLOOD ORDERABLES Final Re sult Performing Organization Address [facility] Co de Phone Number [facility] [address] [place] [address], [place] [phone] * (ABNORMAL) Electrolyte panel (07/08/2024 8:30 PM [...] ORDERABLES Final Re sult Performing Organization Address City/[facility]/ZIP Co de Phone Number [facility] [address] [place] [address], [place] [phone] * PATHOLOGIST REVIEW PROTEIN ELECTROPHORESIS (07/08/2024 5:52 PM EST) Pathologist [facility] Pathologist Interpretation Reviewed by Rosenda Galeana MD 07/14/2024 9:21 AM EST [facility] Blood Venous blood specimen / Unknown Venipuncture / Unknown 07/08/2024 5:52 PM EST 07/08/2024 6:00 PM EST Aye HEDRICK LAB BLOOD ORDERABLES Final Re sult [facility] [address] [place] [address], [place] [phone] * (ABNORMAL) Protein electrophoresis, serum (07/08/2024 5:52 [...] Re sult [facility] [address] [place] [address], * Protein, total (07/08/2024 5:52 PM EST) Total Protein 6.4 6.0 - 8.0 g/dL LAB CHEMISTRY METHOD 07/08/2024 6:30 PM [facility] Blood Venous blood specimen / Unknown Venipuncture / Unknown 07/08/2024 5:52 PM EST 07/08/2024 6:00 PM EST Aye HEDRICK LAB BLOOD ORDERABLES Final Re sult Performing Organization Address [facility]/ZIP Co de Phone Number [facility] [address] [place] [address], [place] [phone] * (ABNORMAL) Serum albumin (07/08/2024 5:52 PM EST) [facility] Albumin 2.1(L) 3.2 - 5.0 g/dL LAB CHEMISTRY METHOD 07/08/2024 6:34 PM EST [facility] Blood Venous blood specimen / Unknown Venipuncture / Unknown 07/08/2024 5:52 PM EST 07/08/2024 6:00 PM EST Aye Earl Monzon [place] LAB BLOOD ORDERABLES Final Re sult Performing Organization Address [facility]/ZIP Co de Phone Number [facility] [address] [place] [address], [place] [phone] * US Retroperitoneal Complete (07/08/2024 4:30 PM EST) Anatomical Region Laterality Modality Body Ultrasound 07/10/2024 2:07 PM EST Impressions 07/10/2024 2:08 PM EST Normal appearance of the kidneys. -------- FINAL REPORT -------- Dictated By: Primo Dee Dictated Date: 07/10/2024 14:07 ET Assigned Physician: Primo Dee Reviewed and Electronically Signed By: Primo Dee Signed Date: 07/10/2024 14:08 ET Workstation ID: [id number] Transcribed By: Self Edit Transcribed Date: 07/10/2024 [...] Signed Date: 07/10/2024 14:08 ET Workstation ID: [id number] Transcribed By: Self Edit Transcribed Date: 07/10/2024 [...] PM EST [facility] Coronavirus HKU1 Not Detected Not [...] PM EST 07/08/2024 3:15 PM EST Narrative [facility] - 07/08/2024 4:18 PM EST Testing was performed using the Evolero Respiratory Pathogen PCR Assay. All results must [...] Final Result [facility] [address] [place] [address], * XR Chest 2 Views (07/08/2024 2:01 PM EST) Anatomical Region Laterality Modality Body Radiographic Jennifer ging 07/08/2024 2:06 PM EST Impressions 07/08/2024 2:07 PM EST No acute findings. -------- FINAL REPORT -------- Dictated By: Henrique Bray Dictated Date: 07/08/2024 14:06 ET Assigned Physician: Henrique Bray Reviewed and Electronically Signed By: Henrique Bray Signed Date: 07/08/2024 14:07 ET Workstation ID: [id number] Transcribed By: Self Edit Transcribed Date: 07/08/2024 [...] Signed Date: 07/08/2024 14:07 ET Workstation ID: [id number] Transcribed By: Self Edit Transcribed Date: 07/08/2024 [...] Re sult [facility] [address] [place] [address], [place] [phone] * (ABNORMAL) Reticulocyte count (07/08/2024 11:10 AM [...] ORDERABLES Final Re sult Performing Organization Address City/[facility]/ZIP Co de Phone Number [facility] [address] [place] [address], [place] [phone] * (ABNORMAL) Thyroid stimulating hormone (07/08/2024 11:10 AM EST) TSH 4.50(H) 0.40 - 4.00 mcIU/mL LAB CHEMISTRY METHOD 07/08/2024 3:31 PM EST [facility] Blood Venous blood specimen / Unknown Venipuncture / Unknown 07/08/2024 11:10 AM EST 07/08/2024 11:42 AM EST us Wayne Donahue MD LAB BLOOD ORDERABLES Final Re sult [facility] [address] [place] [address], [place] [phone] * (ABNORMAL) Osmolality (07/08/2024 11:10 AM EST) Osmolality Iván 307(H) 280 - 300 mOsm/kg LAB CHEMISTRY METHOD 07/08/2024 6:51 PM EST [facility] Blood Venous blood specimen / Unknown Venipuncture / Unknown 07/08/2024 11:10 AM EST 07/08/2024 11:42 AM EST Wayne Donahue MD LAB BLOOD ORDERABLES Final Re sult Performing Organization Address City/[facility]/ZIP Co de Phone Number [facility] [address] [place] [address], [place] [phone] * B-type natriuretic peptide (07/08/2024 11:10 AM EST) BNP 86 <=100 pcg/mL LAB CHEMISTRY METHOD 07/08/2024 12:26 PM EST [facility] Blood Venous blood specimen / Unknown Venipuncture / Unknown 07/08/2024 11:10 AM EST 07/08/2024 11:42 AM EST Jj Wolfe MD LAB BLOOD ORDERABLES [place] l Result Performing Organization Address City/[facility]/ZIP Co de Phone Number [facility] [address] [place] [address], [place] [phone] * (ABNORMAL) Haptoglobin (07/08/2024 11:10 AM EST) Haptoglobin 570(H) 16 - 200 mg/dL LAB CHEMISTRY METHOD 07/08/2024 3:44 PM EST [facility] Blood Venous blood specimen / Unknown Venipuncture / Unknown 07/08/2024 11:10 AM EST 07/08/2024 11:42 AM EST us Wayne Donahue MD LAB BLOOD ORDERABLES Final Re sult Performing Organization Address [facility]/ZIP Co de Phone Number [facility] [address] [place] [address], * (ABNORMAL) Folate (07/08/2024 11:10 AM EST) [facility] Folate >20.0(H) 2.8 - 17.0 ng/ml LAB CHEMISTRY METHOD 07/08/2024 3:51 PM EST [facility] Blood Venous blood specimen / Unknown Venipuncture / Unknown 07/08/2024 11:10 AM EST 07/08/2024 11:42 AM EST us Wayne Donahue MD LAB BLOOD ORDERABLES Final Re sult Performing Organization Address [facility]/ZIP Co de Phone Number [facility] [address] [place] [address], * (ABNORMAL) Ferritin (07/08/2024 11:10 AM EST) [facility] Ferritin 708(H) 8 - 252 ng/mL LAB CHEMISTRY METHOD 07/08/2024 3:51 PM EST [facility] Blood Venous blood specimen / Unknown Venipuncture / Unknown 07/08/2024 11:10 AM EST 07/08/2024 11:42 AM EST us Wayne Donahue MD LAB BLOOD ORDERABLES Final Re sult [facility] [address] [place] [address], [place] [phone] * Vitamin B12 (07/08/2024 11:10 AM EST) [facility] Vitamin B-12 384 250 - 900 pcg/mL LAB CHEMISTRY METHOD 07/08/2024 3:51 PM EST [facility] Blood Venous blood specimen / Unknown Venipuncture / Unknown 07/08/2024 11:10 AM EST 07/08/2024 11:42 AM EST us Wayne Donahue MD LAB BLOOD ORDERABLES Final Re sult Performing Organization Address City/[facility]/ZIP Co de Phone Number [facility] [address] [place] [address], [place] [phone] * (ABNORMAL) Creatine kinase and CKMB (07/08/2024 [...] ORDERABLES Final Re sult Performing Organization Address City/[facility]/ZIP Co de Phone Number [facility] [address] [place] [address], [place] [phone] * Cortisol (07/08/2024 11:10 AM EST) Cortisol [...] Re sult [facility] [address] [place] [address], [place] [phone] * (ABNORMAL) Comprehensive metabolic panel (07/08/2024 11:10 [...] l Result [facility] [address] [place] [address], [place] [phone] * ECG-Outside (07/08/2024) us Provider Onbase ECG ORDERABLES Final Result * Lipid panel with reflex to direct LDL (05/31/2024 9:22 AM EST) Cholesterol 131 0 - 200 mg/dL LAB CHEMISTRY METHOD 05/31/2024 12:51 PM EST [facility] Triglycerides 113 0 - 150 mg/dL LAB CHEMISTRY METHOD 05/31/2024 12:51 PM EST [facility] HDL 60 >=40 mg/dL LAB CHEMISTRY METHOD 05/31/2024 12:51 PM EST [facility] LDL Calculated 48 0 - [...] Resul t [facility] [address] [place] [address], * JODY DEXA AXIAL SKELETON (04/15/2018 10:29 AM EDT) Anatomical Region Laterality Modality Mammography 04/15/2018 9:39 AM EDT Narrative 04/15/2018 10:29 AM EDT [facility] Diagnostic Imaging Department [address] [place] [address] Patient: ??CONTRERAS,ANA A ?/Age/Sex: 1945 - 73 - F Unit#: ??[id number] ? Location/Status: ??SPDIMAM/REG CLI ? Mnemonic/Ordering Site: ??MAMDEXAAX/SPMAM Ordering Physician: ??JOSE SANTIZO MD [facility] Dexa Axial Skeleton - 04/15/18 [...] probability of hip fracture of 2.2%. Code 18016 Dictating Physician: ??JAILYN BARAHONA MD Electronically Signed by: ??JAILYN BARAHONA MD Dic Date/Time: ??04/15/18 1028 Sign date/Time: ??04/15/18 1029 Procedure Note Jailyn Barahona MD - 06/17/2022 [facility] Diagnostic Imaging Department [address] [place] [address] Patient: RICHIE CONTRERASNCHE Krysta /Age/Sex: 1945 - 73 - F Unit#: [id number] Location/Status: [facility] Mnemonic/Ordering Site: [facility] Ordering Physician: JOSE SANTIZO MD [facility] Dexa Axial Skeleton - 04/15/181003 HISTORY: The [...] density of the femurs bilaterally is 0.854 gm/nu4zkiia is 85% of that of young normals [...] probability of hip fracture of 2.2%. Code 81781 Dictating Physician: JAILYN BARAHONA MD Electronically Signed by: JAILYN BARAHONA MD Dic Date/Time: 04/15/18 1028 Sign date/Time: 04/15/18 1029 Jose Santizo MD IMG BI PROCEDURES Final Result from Last 3 Months or Most Recently Relevant to Health Maintenance Insurance [employer] MEDICARE Advance Directives Documents on File Type Date Recorded Patient Denier Control Operator Expl anation Advance Directives and Living [...] Second Alternate Health Care Agent Care Teams Costuming Supervisor Relationship Specialty Start Date End Date Eloisa Vázquez DO [facility] [place] [address] PCP - General 04/12/24
--- OUTSIDE RECORDS SUMMARY | 2024-10-03 07:43 | XMS_ITS | Clinical Summary ---
Author Organization [facility] Address [address] [address] Phone Care Team Providers Care On Air Director Name Role Phone Eloisa Vázquez Primary Care Provider [phone] Encounters Date Type Department Care Team Description 09/30/2024 Treatment [facility] [address] [place] [phone] Anthony Norton MD 09/23/2024 Treatment [facility] [address] [address] Anthony Norton MD 09/19/2024 Treatment [facility] [address] [phone] Anthony Norton MD 09/12/2024 Treatment [facility] [address] [address] Anthony Norton MD 09/02/2024 Treatment [facility] [address] [address] Anthony Norton MD 08/26/2024 Treatment [facility] [address] [address] Anthony Norton MD 08/23/2024 Treatment [facility] [address] [phone] Tony Golden MD 08/17/2024 Treatment [facility] [address] [address] Anthony Norton MD 08/11/2024 Orders Only [facility] [address] [address] Anthony Norton MD ANCA associated vasculitis (HCC); 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) 08/08/2024 Treatment [facility] [address] [address] Anthony Norton MD 08/08/2024 Office Communication [facility] [address] [address] Anthony Norton MD ANCA associated vasculitis (HCC) (Primary Dx); 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) 07/28/2024 Telephone [facility] [address] [phone] Maggy Mcgarry from Last 3 Months Social [...] PM EDT us Anthony Norton MD LAB [id number] SOLICITED RESULTS Final Result [facility] [address] [place] [address] * (ABNORMAL) Kt/V Natural Log, URR (09/30/2024 [...] 1:30 PM EDT Anthony Norton MD LAB [id number] SOLICITED RESULTS Final Result Performing Organization Address [facility] Co de Phone Number [facility] [address] [place] [address] * (ABNORMAL) Calcium Phosphorus Product, Adjusted (09/30/2024 [...] 1:31 PM EDT Anthony Norton MD LAB [id number] SOLICITED RESULTS Final Result Performing Organization Address [facility] de Phone Number [facility] [address] [place] [address] * Hepatitis B Surface Ag w/Reflex Confirmation (09/30/2024 3:00 AM EDT) Only the most recent of3 resultswithin the time period is included. Hep B Surface Antigen Negative Negative [facility] 09/30/2024 3:00 AM EDT 10/01/2024 1:31 PM EDT Anthony Norton MD LAB BLOOD ORDERABLES Final Re sult Performing Organization Address [facility] de Phone Number [facility] [address] [place] [address] * (ABNORMAL) TSAT (09/30/2024 3:00 AM EDT) Only the most recent of3 resultswithin the time period is included. [facility] Iron 66 50 - 170 ug/dL [facility] Transferrin 127(L) 250 - 380 mg/dL [facility] TIBC 178(L) 211 - 406 ug/dL [facility] Iron Saturation (TSat) 37 22 - 52 % [facility] 09/30/2024 3:00 AM EDT 10/01/2024 1:31 PM EDT Anthony Norton MD LAB BLOOD ORDERABLES Final Re sult Performing Organization Address [facility] de Phone Number [facility] [address] [place] [address] * (ABNORMAL) CBC and Differential (09/30/2024 3:00 AM EDT) Only the most recent of3 resultswithin the time period is included. [facility] DIFFERENTIAL MANUAL, 2 Not Indicated [facility] White [...] ORDERABLES Final Re sult Performing Organization Address [facility] Co de Phone Number [facility] [address] [place] [address] * ALT (09/30/2024 3:00 AM EDT) Only the most recent of3 resultswithin the time period is included. ALT (SGPT) 14 10 - 49 U/L [facility] 09/30/2024 3:00 AM EDT 10/01/2024 1:31 PM EDT Anthony Norton MD LAB BLOOD ORDERABLES Final Re sult Performing Organization Address [facility] de Phone Number [facility] [address] [place] [address] * AST (09/30/2024 3:00 AM EDT) Only the most recent of3 resultswithin the time period is included. AST (SGOT) 12 <34 U/L [facility] 09/30/2024 3:00 AM EDT 10/01/2024 1:31 PM EDT Anthony Norton MD LAB BLOOD ORDERABLES Final Re sult Performing Organization Address [facility] Co de Phone Number [facility] [address] [place] [address] * (ABNORMAL) Protein, total (09/30/2024 3:00 AM EDT) Only the most recent of3 resultswithin the time period is included. Total Protein 5.0(L) 6.4 - 8.9 g/dL [facility] 09/30/2024 3:00 AM EDT 10/01/2024 1:31 PM EDT us Anthony Norton MD LAB BLOOD ORDERABLES Final Re sult Performing Organization Address [facility] Co de Phone Number [facility] [address] [place] [address] * Alkaline phosphatase (09/30/2024 3:00 AM EDT) Only the most recent of3 resultswithin the time period is included. Alkaline Phosphatase 102 46 - 116 U/L [facility] 09/30/2024 3:00 AM EDT 10/01/2024 1:31 PM EDT us Anthony Norton MD LAB BLOOD ORDERABLES Final Re sult Performing Organization Address [facility] de Phone Number [facility] [address] [place] [address] * PTH, Intact (09/30/2024 3:00 AM EDT) [...] ORDERABLES Final Re sult Performing Organization Address [facility] Co de Phone Number [facility] [address] [place] [address] * Magnesium (09/30/2024 3:00 AM EDT) Only the most recent of3 resultswithin the time period is included. Magnesium 2.0 1.9 - 2.7 mg/dL [facility] 09/30/2024 3:00 AM EDT 10/01/2024 1:31 PM EDT us Anthony Norton MD LAB BLOOD ORDERABLES Final Re sult Performing Organization Address [facility] de Phone Number [facility] [address] [place] [address] * (ABNORMAL) Lactate dehydrogenase (09/30/2024 3:00 AM EDT) Only the most recent of3 resultswithin the time period is included. LDH 300(H) 120 - 246 U/L [facility] 09/30/2024 3:00 AM EDT 10/01/2024 1:31 PM EDT Anthony Norton MD LAB BLOOD ORDERABLES Final Re sult Performing Organization Address [facility] de Phone Number [facility] [address] [place] [address] * (ABNORMAL) Hemoglobin A1c (09/30/2024 3:00 AM [...] Final Re sult [facility] [address] [place] [address] * (ABNORMAL) Glucose, random (09/30/2024 3:00 AM EDT) Only the most recent of11 resultswithin the time period is included. Glucose 236(H) 74 - 109 mg/dL [facility] 09/30/2024 3:00 AM EDT 10/01/2024 1:31 PM EDT Anthony Norton MD LAB BLOOD ORDERABLES Final Re sult Performing Organization Address [facility] Co de Phone Number [facility] [address] [place] [address] * (ABNORMAL) Ferritin (09/30/2024 3:00 AM EDT) Only the most recent of3 resultswithin the time period is included. Ferritin 2,081(H) 10 - 291 ng/mL [facility] 09/30/2024 3:00 AM EDT 10/01/2024 1:31 PM EDT Anthony Norton MD LAB BLOOD ORDERABLES Final Re sult Performing Organization Address [facility] de Phone Number [facility] [address] [place] [address] * (ABNORMAL) Creatinine, serum (09/30/2024 3:00 AM EDT) Only the most recent of2 resultswithin the time period is included. Creatinine 3.65(H) 0.55 - 1.02 mg/dL [facility] 09/30/2024 3:00 AM EDT 10/01/2024 1:31 PM EDT us Anthony Norton MD LAB BLOOD ORDERABLES Final Re sult Performing Organization Address [facility] Co de Phone Number [facility] [address] [place] [address] * (ABNORMAL) Bilirubin, total (09/30/2024 3:00 AM EDT) Only the most recent of3 resultswithin the time period is included. Total Bilirubin 0.2(L) 0.3 - 1.2 mg/dL [facility] 09/30/2024 3:00 AM EDT 10/01/2024 1:31 PM EDT us Anthony Norton MD LAB BLOOD ORDERABLES Final Re sult [facility] [address] [place] [address] * (ABNORMAL) Lipid panel (09/30/2024 3:00 AM [...] ORDERABLES Final Re sult Performing Organization Address [facility] de Phone Number [facility] [address] [place] [address] * (ABNORMAL) Electrolyte panel (09/30/2024 3:00 AM [...] ORDERABLES Final Re sult Performing Organization Address [facility] de Phone Number [facility] [address] [place] [address] * (ABNORMAL) Basic Metabolic Panel Bundled (09/26/2024 [...] EDT 09/27/2024 1:23 PM EDT us Anthony oNrton MD LAB [id number] SOLICITED RESULTS Final Result Performing Organization Address [facility] de Phone Number [facility] [address] [place] [address] * (ABNORMAL) Hemoglobin (09/26/2024 3:00 AM EDT) Only the most recent of2 resultswithin the time period is included. Hgb 8.9(L) 11.2 - 15.7 g/dL [facility] Hemoglobin x 3 26.7(L) 33.6 - 47.1 g/dL [facility] 09/26/2024 3:00 AM EDT 09/27/2024 1:27 PM EDT us Anthony Norton MD LAB BLOOD ORDERABLES Final Re sult Performing Organization Address [facility] de Phone Number [facility] [address] [place] [address] * (ABNORMAL) Creatinine clearance, urine, 24 hour [...] ORDERABLES Final Re sult Performing Organization Address [facility] de Phone Number [facility] [address] [place] [address] * (ABNORMAL) Hemoglobin and hematocrit (09/16/2024 3:00 AM EDT) Only the most recent of2 resultswithin the time period is included. Hgb 8.6(L) 11.2 - 15.7 g/dL [facility] Hematocrit 26.5(L) 34.1 - 44.9 % [facility] Hemoglobin x 3 25.8(L) 33.6 - 47.1 g/dL [facility] 09/16/2024 3:00 AM EDT 09/17/2024 1:04 PM EDT Anthony Norton MD LAB BLOOD ORDERABLES Final Re sult Performing Organization Address [facility] de Phone Number [facility] [address] [place] [address] * Phosphorus (09/16/2024 3:00 AM EDT) Phosphorus, Serum 3.8 2.5 - 5.0 mg/dL [facility] 09/16/2024 3:00 AM EDT 09/17/2024 1:09 PM EDT Anthony Norton MD LAB BLOOD ORDERABLES Final Re sult Performing Organization Address [facility] de Phone Number [facility] [address] [place] [address] * Confirmation Test HCV (08/08/2024 3:00 AM EST) Hep C Ab Confirmation Not needed [facility] 08/08/2024 3:00 AM EST 08/09/2024 1:15 PM EST Anthony Norton MD LAB BLOOD ORDERABLES Final Re sult Performing Organization Address [facility] de Phone Number [facility] [address] [place] [address] * HEPATITIS C ABS W/REFLEX RNA DETECTR (08/08/2024 3:00 AM EST) [facility] Hep C Virus Ab Non-Reacti ve Non-Reacti ve [facility] 08/08/2024 3:00 AM EST 08/09/2024 1:17 PM EST Anthony Norton MD LAB [id number] SOLICITED RESULTS Final Result Performing Organization Address [facility] de Phone Number [facility] [address] [place] [address] * Hepatitis B Core Antibody, Total (08/08/2024 3:00 AM EST) [facility] HBc Total Ab, S Negative Negative [facility] 08/08/2024 3:00 AM EST 08/09/2024 1:17 PM EST Anthony Norton MD LAB BLOOD ORDERABLES Final Re sult Performing Organization Address [facility] de Phone Number [facility] [address] [place] [address] * Aluminum level (08/08/2024 3:00 AM EST) [facility] Aluminum 4 1 - 20 ug/L [facility] 08/08/2024 3:00 AM EST 08/09/2024 1:21 PM EST Anthony Norton MD LAB BLOOD ORDERABLES Final Re sult Performing Organization Address [facility] de Phone Number [facility] [address] [place] [address] * Vitamin D 25 Hydroxy (08/08/2024 3:00 AM EST) [facility] Vitamin D, 25-Hydroxy 38 30 - 100 ng/mL [facility] Comment: Status ? Adult ?? Pediatric Deficient: ? <20 ? <15 Insufficient: ??20-29 ?? 15-19 Sufficient: ?30-100 ??20-100 08/08/2024 3:00 AM EST 08/09/2024 1:17 PM EST us Anthony Norton MD LAB BLOOD ORDERABLES Final Re sult Performing Organization Address [facility] de Phone Number [facility] [address] [place] [address] * (ABNORMAL) Hepatitis B Surface Antibody (08/08/2024 3:00 AM EST) Hep B Surface Antibody <4(A) mIU/mL [facility] Comment: Interpretation: <10: No Immunity >=10: Probable Immunity 08/08/2024 3:00 AM EST 08/09/2024 1:17 PM EST Anthony Norton MD LAB BLOOD ORDERABLES Final Re sult Performing Organization Address [facility] de Phone Number [facility] [address] [place] [address] * Uric Acid (08/08/2024 3:00 AM EST) Uric Acid 5.0 2.3 - 6.6 mg/dL [facility] 08/08/2024 3:00 AM EST 08/09/2024 1:17 PM EST Anthony Norton MD LAB BLOOD ORDERABLES Final Re sult Performing Organization Address [facility] de Phone Number [facility] [address] [place] [address] from Last 3 Months Insurance [address] [place] [id number] [facility] MEDICARE Care Teams On Air Director Relationship Specialty Start Date End Date Eloisa Vázquez [address] [place] [address] PCP - General Internal Medicine 07/11/24
--- OUTSIDE RECORDS SUMMARY | 2024-10-03 07:43 | XMS_ITS | Encounter Summary ---
Author Organization [facility] Address [address] [place] [address] Care Team Providers Care Meat Carver Name Role Phone Marie Vázquezmankamryn CHERY Primary Care Provider [phone] Encounter Details Date Type Department Care Team (Late st Contact Info) Description 04/12/2024 1:41 PM EDT Hospital Encounter TH HISTORIC ENCOUNTERS EASTERN CONVERSION ONLY Jaime Grimaldo MD [address] [place] [phone] Social History Tobacco Use Types Packs/Day Years [...] 10/17/2024 1:20 PM EDT Telemedicine Endocrinology - [place] [address] [place] [phone] Kathy Michelle PA [address] [place] [address] 11/11/2024 11:00 AM EDT Ancillary Procedure [facility] [address] [place] [address] 11/14/2024 11:30 AM EDT Appointment [facility] CT Scan [address] [place] [phone] 11/18/2024 2:15 PM EDT Office Visit Internal Medicine - [facility] [address] [place] [phone] Brigidoeverardo Eloisa [address] [place] [address] 12/01/2024 10:00 AM EDT Office Visit Thoracic Surgery - [facility] [address] [place] [phone] Cecily Montez MD [address] [place] [address] documented as of this encounter Procedures Procedure [...] documented as of this encounter Care Teams Meat Carver Relationship Specialty Start Date End Date LoboconcettaMarieEloisaDO beto [address] [facility] [place] [address] PCP - General 04/12/24 documented as of this encounter
--- OUTSIDE RECORDS SUMMARY | 2024-10-03 07:44 | XMS_ITS | Encounter Summary ---
Author Organization [facility] Address [address] [phone] Phone Care Team Providers Care Shaving Machine Operator Name Role Phone Eloisa Vázquez Primary Care Provider [phone] Encounter Details Date Type Department Care Team (Late st Contact Info) Description 09/30/2024 Treatment [facility] [address] [phone] Boni Pierce MD [address] [address] Social History Tobacco Use Types [...] kidney injury requiring renal replacement therapy. Attending Compliance Engineer Products: BONI PIERCE Dialysis Location: [facility] Schedule: Shift: 1 ADEQUACY ASSESSMENT Kt/V, [...] on filedocumented in this encounter Care Teams Shaving Machine Operator Relationship Specialty Start Date End Date Eloisa Vázquez [address] [place] [address] PCP - General Internal Medicine 07/11/24 documented as of this encounter
[2024-10-03 07:48] LABS: Appearance Urine Cloudy; Color Urine Yellow; Glucose Urine UA 500 mg/dL (Negative); Leukocyte Esterase Urine Large (3+) (Negative); Nitrite Urine Negative (Negative); PH 6.5 (5.0-9.0); UMIC TRIGGER UA YES; Urine Blood Moderate (2+) (Negative); Urine Ketones Negative (Negative); Urine Protein 300 (3+) mg/dL (Neg-Trace)
[2024-10-03 07:53] LABS: Bacteria Urine 4+ (None Seen); Hyaline Casts Urine 0-2 /LPF (0-2); RBC Urine >20 /HPF (0-2); WBC Urine >50 /HPF (0-5)
== END 2024-10-02 17:01 | disposition home or self-care (01) ==
LOC: HO.MMNH1L 17:00
PROVIDERS: Visit Provider Student in an Organized Health Care Education/Training Program
DX: E11.9 Type 2 diabetes mellitus without complications (principal); R82.90 Unspecified abnormal findings in urine
CPT/HCPCS: 81001; 87086

== ENCOUNTER 2024-10-03 05:46 | Outpatient (REF) | payer MEDICARE, SELFPAY ==
[2024-10-03 05:41] LABS: MANUAL DIFF FLAG NO
--- OUTSIDE RECORDS SUMMARY | 2024-10-03 05:54 | XMS_ITS | Clinical Summary ---
Author Organization [facility] Address [address] [address] Phone Care Team Providers Care Supervisor Maintenance Name Role Phone Eloisa Vázquez Primary Care Provider [phone] Encounters Date Type Department Care Team Description 09/30/2024 Treatment [facility] [address] [place] [phone] Anthony Norton MD 09/23/2024 Treatment [facility] [address] [address] Anthony Norton MD 09/19/2024 Treatment [facility] [address] [address] Anthony Norton MD 09/12/2024 Treatment [facility] [address] [phone] Anthony Norton MD 09/02/2024 Treatment [facility] [address] [address] Anthony Norton MD 08/26/2024 Treatment [facility] [address] [address] Anthony Norton MD 08/23/2024 Treatment [facility] [address] [phone] Tony Golden MD 08/17/2024 Treatment [facility] [address] [address] Anthony Norton MD 08/11/2024 Orders Only [facility] [address] [address] Anthony Norton MD ANCA associated vasculitis (HCC); 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) 08/08/2024 Treatment [facility] [address] [address] Anthony Norton MD 08/08/2024 Office Communication [facility] [address] [phone] Anthony Norton MD ANCA associated vasculitis (HCC) (Primary Dx); 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) 07/28/2024 Telephone [facility] [address] [phone] Maggy Mcgarry from Last 3 Months Social [...] 5 - Risk Dialysis 4-dose series) 1965 Diabetes: Ophthalmology Exam 08/08/2024 Diabetes: Pedal Pulse Checked 08/08/2024 Diabetes: Sensory Foot Exam 08/08/2024 Diabetes: Visual Foot Exam 08/08/2024 Diabetes: Hemoglobin A1C 12/30/2024 04/ 025, 08/08/2024, 05/31/2024 Influenza Vaccine (Season Ended) 2025 Procedures Procedure Name Priority Date/Time Associated Diagnosis Comments FERRITIN Routine 09/30/2024 3:00 AM EDT HEMOGLOBIN A1C Routine 09/30/2024 3:00 AM EDT HEPATITIS B SURFACE ANTIGEN W/REFL CONFIRM Routine 09/30/2024 3:00 AM EDT TRANSFERRIN SATURATION Routine 3:00 AM EDT PROTEIN, TOTAL, SERUM Routine 09/30/2024 3:00 AM EDT MAGNESIUM Routine 09/30/2024 3:00 AM EDT ELECTROLYTE PANEL Routine 09/30/2024 3:0 0 AM EDT LIPID PANEL Routine 09/30/2024 3:00 AM EDT LIH (HC) Routine 09/30/2024 3:00 AM EDT LACTATE DEHYDROGENASE Routine 09/30/2024 3:00 AM EDT GLUCOSE, RANDOM Routine 09/30/2024 3:00 AM EDT AST Routine 09/30/2024 3:00 AM EDT BILIRUBIN, TOTAL Routine 09/30/2024 3:00 AM EDT CREATININE, SERUM Routine 09/30/2024 3:0 0 AM EDT ALT Routine 09/30/2024 3:00 AM EDT CALCIUM PHOSPHORUS PRODUCT, ADJUSTED (HC) Routine 09/30/2024 3:00 AM EDT ALKALINE PHOSPHATASE Routine 09/30/2024 3:00 AM EDT PTH, INTACT Routine 09/30/2024 3:00 AM EDT CBC AND DIFFERENTIAL Routine 09/30/2024 3:00 AM EDT KT/V NATURAL LOG, URR (HC) Routine 09/30/2024 3:00 AM EDT BASIC METABOLIC PANEL BUNDLED (HC) Routine 09/26/2024 3:00 AM EDT LIH (HC) Routine 09/26/2024 3:00 AM EDT GLUCOSE, RANDOM Routine 09/26/2024 3:00 AM EDT HEMOGLOBIN Routine 09/26/2024 3:00 AM EDT LIH (HC) Routine 09/19/2024 3:00 AM EDT GLUCOSE, RANDOM Routine 09/19/2024 3:00 AM EDT BASIC METABOLIC PANEL BUNDLED (HC) Routine 09/19/2024 3:00 AM EDT PHOSPHATE ( PHOSPHORUS) Routine 09/16/2024 3:00 AM EDT GLUCOSE, RANDOM Routine 09/16/2024 3:00 AM EDT LIH (HC) Routine 09/16/2024 3:00 AM EDT BASIC METABOLIC PANEL BUNDLED (HC) Routine 09/16/2024 3:00 AM EDT HEMOGLOBIN AND HEMATOCRIT, BLOOD Routine 09/16/2024 3:00 AM EDT CREATININE CLEARANCE, URINE, 24 HOUR Routine 09/16/2024 3:00 AM EDT LIH (HC) Routine 09/05/2024 3:00 AM EDT BASIC METABOLIC PANEL BUNDLED (HC) Routine 09/05/2024 3:00 AM EDT GLUCOSE, RANDOM Routine 09/05/2024 3:00 AM EDT HEPATITIS B SURFACE ANTIGEN W/REFL CONFIRM Routine [...] HEMOGLOBIN Routine 08/26/2024 3:00 AM EST LIH () Routine 08/17/2024 3:00 AM EST GLUCOSE, RANDOM [...] from Last 3 Months Results * LIH (09/30/2024 3:00 AM EDT) Only the most recent of11 resultswithin the time period is included. Lipemia Normal Normal [facility] Icterus Normal Normal [facility] Hemolysis Normal Normal [facility] 09/30/2024 3:00 AM EDT 10/01/2024 1:31 PM EDT us Anthony Norton MD LAB [id number] SOLICITED RESULTS Final Result [facility] [address] [place] [address] * (ABNORMAL) Kt/V Natural Log, URR (09/30/2024 3:00 AM EDT) Only the most recent of3 resultswithin the time period is included. Treatment Time 185 min [facility] Pre-Weight, lb 75.4 kg [facility] Post-Weight, lb 72.8 kg [facility] Ultrafiltration Rate 12 <=13 mL/kg/hr [facility] Comment: Recommend achieving Ultrafiltration Rate (UFR) <=10 mL/kg/hr References: Krish PIERCE et al. Kidney Int. 2010; 79(2):250-257 BUN Post Dialysis 21 7 - 25 mg/dL [facility] BUN 78(H) 7 - 25 mg/dL [facility] UREA REDUCTION RATIO (%) 73 >=65 % [facility] Kt/V Natural Log 1.52 >=1.2 [facility] 09/30/2024 3:00 AM EDT 10/01/2024 1:30 PM EDT Anthony Norton MD LAB [id number] SOLICITED RESULTS Final Result Performing Organization Address [facility] Co de Phone Number [facility] [address] [place] [address] * (ABNORMAL) Calcium Phosphorus Product, Adjusted (09/30/2024 3:00 AM EDT) Only the most recent of3 resultswithin the time period is included. Albumin 3.2(L) 3.6 - 5.4 g/dL [facility] Calcium 8.1(L) 8.6 - 10.3 mg/dL [facility] Phosphorus, Serum 5.0 2.5 - 5.0 mg/dL [facility] Ca*PO4 40.5 <55.0 mg2/dL2 [facility] Calcium, Adjusted Total 8.7 8.6 - 10.3 mg/dL [facility] CA*PO4 CORRCTD 43.5 <55.0 mg2/dL2 [facility] 09/30/2024 3:00 AM EDT 10/01/2024 1:31 PM EDT Anthony Norton MD LAB [id number] SOLICITED RESULTS Final Result Performing Organization Address [facility] de Phone Number [facility] [address] [place] [address] * Hepatitis B Surface Ag w/Reflex Confirmation (09/30/2024 3:00 AM EDT) Only the most recent of3 resultswithin the time period is included. Hep B Surface Antigen Negative Negative [facility] 09/30/2024 3:00 AM EDT 10/01/2024 1:31 PM EDT Anthony Norton MD LAB BLOOD ORDERABLES Final Re sult Performing Organization Address [facility] de Phone Number [facility] [address] [place] [address] * (ABNORMAL) TSAT (09/30/2024 3:00 AM EDT) Only the most recent of3 resultswithin the time period is included. [facility] Iron 66 50 - 170 ug/dL [facility] Transferrin 127(L) 250 - 380 mg/dL [facility] TIBC 178(L) 211 - 406 ug/dL [facility] Iron Saturation (TSat) 37 22 - 52 % [facility] 09/30/2024 3:00 AM EDT 10/01/2024 1:31 PM EDT Anthony Norton MD LAB BLOOD ORDERABLES Final Re sult Performing Organization Address [facility] de Phone Number [facility] [address] [place] [address] * (ABNORMAL) CBC and Differential (09/30/2024 3:00 AM EDT) Only the most recent of3 resultswithin the time period is included. [facility] DIFFERENTIAL MANUAL, 2 Not Indicated [facility] White Blood Cells 6.6 4.0 - 10.0 K/uL [facility] RBC 2.86(L) 3.93 - 5.22 M/uL [facility] Hgb 9.0(L) 11.2 - 15.7 g/dL [facility] Hemoglobin x 3 27.0(L) 33.6 - 47.1 g/dL [facility] Hematocrit 28.4(L) 34.1 - 44.9 % [facility] MCV 99.3(H) 79.4 - 94.8 fL [facility] MCH 31.5 25.6 - 32.2 pg [facility] MCHC 31.7(L) 32.2 - 35.5 g/dL [facility] Platelets 154(L) 182 - 369 K/uL [facility] RDW 17.8(H) 11.7 - 14.4 % [facility] Neutrophils Relative 84.0(H) 34.0 - 71.1 % [facility] Lymphocytes Relative 8.0(L) 19.3 - 51.7 % [facility] Monocytes 7.2 4.7 - 12.5 % [facility] Eosinophils Relative 0.0(L) 0.7 - 5.8 % [facility] Basophils Relative 0.0(L) 0.1 - 1.2 % [facility] Immature Granulocytes 0.8 0.0 - 1.0 % [facility] 09/30/2024 3:00 AM EDT 10/01/2024 1:40 PM EDT Anthony Norton MD LAB BLOOD ORDERABLES Final Re sult Performing Organization Address [facility] Co de Phone Number [facility] [address] [place] [address] * ALT (09/30/2024 3:00 AM EDT) Only the most recent of3 resultswithin the time period is included. ALT (SGPT) 14 10 - 49 U/L [facility] 09/30/2024 3:00 AM EDT 10/01/2024 1:31 PM EDT Anthony Norton MD LAB BLOOD ORDERABLES Final Re sult Performing Organization Address [facility] de Phone Number [facility] [address] [place] [address] * AST (09/30/2024 3:00 AM EDT) Only the most recent of3 resultswithin the time period is included. AST (SGOT) 12 <34 U/L [facility] 09/30/2024 3:00 AM EDT 10/01/2024 1:31 PM EDT Anthony Norton MD LAB BLOOD ORDERABLES Final Re sult Performing Organization Address [facility] Co de Phone Number [facility] [address] [place] [address] * (ABNORMAL) Protein, total (09/30/2024 3:00 AM EDT) Only the most recent of3 resultswithin the time period is included. Total Protein 5.0(L) 6.4 - 8.9 g/dL [facility] 09/30/2024 3:00 AM EDT 10/01/2024 1:31 PM EDT us Anthony Norton MD LAB BLOOD ORDERABLES Final Re sult Performing Organization Address [facility] Co de Phone Number [facility] [address] [place] [address] * Alkaline phosphatase (09/30/2024 3:00 AM EDT) Only the most recent of3 resultswithin the time period is included. Alkaline Phosphatase 102 46 - 116 U/L [facility] 09/30/2024 3:00 AM EDT 10/01/2024 1:31 PM EDT us Anthony Norton MD LAB BLOOD ORDERABLES Final Re sult Performing Organization Address [facility] de Phone Number [facility] [address] [place] [address] * PTH, Intact (09/30/2024 3:00 AM EDT) Only the most recent of2 resultswithin the time period is included. PTH, Intact 273 160 - 721 pg/mL [facility] Comment: Suggested (KDIGO) ESRD maintenance range is two to nine times the upper normal limit (80.1 pg/mL) for the laboratory. 09/30/2024 3:00 AM EDT 10/01/2024 1:31 PM EDT us Anthony Norton MD LAB BLOOD ORDERABLES Final Re sult Performing Organization Address [facility] Co de Phone Number [facility] [address] [place] [address] * Magnesium (09/30/2024 3:00 AM EDT) Only the most recent of3 resultswithin the time period is included. Magnesium 2.0 1.9 - 2.7 mg/dL [facility] 09/30/2024 3:00 AM EDT 10/01/2024 1:31 PM EDT us Anthony Norton MD LAB BLOOD ORDERABLES Final Re sult Performing Organization Address [facility] de Phone Number [facility] [address] [place] [address] * (ABNORMAL) Lactate dehydrogenase (09/30/2024 3:00 AM EDT) Only the most recent of3 resultswithin the time period is included. LDH 300(H) 120 - 246 U/L [facility] 09/30/2024 3:00 AM EDT 10/01/2024 1:31 PM EDT Anthony Norton MD LAB BLOOD ORDERABLES Final Re sult Performing Organization Address [facility] de Phone Number [facility] [address] [place] [address] * (ABNORMAL) Hemoglobin A1c (09/30/2024 3:00 AM EDT) Only the most recent of2 resultswithin the time period is included. Hemoglobin A1C 7.3(H) <5.7 % [facility] Comment: Methodology: Enzymatic HbA1c (NGSP %) ?Suggested Diagnosis >6.4% ? Diabetic 5.7-6.4% ?Pre-Diabetic <5.7% ? Non-Diabetic Diabetic Glucose Control Evaluation: Therapeutic action suggested at >8.0% ADA recommends a glycemic goal of <7.0% 09/30/2024 3:00 AM EDT 10/01/2024 1:40 PM EDT us Anthony Norton MD LAB BLOOD ORDERABLES Final Re sult [facility] [address] [place] [address] * (ABNORMAL) Glucose, random (09/30/2024 3:00 AM EDT) Only the most recent of11 resultswithin the time period is included. Glucose 236(H) 74 - 109 mg/dL [facility] 09/30/2024 3:00 AM EDT 10/01/2024 1:31 PM EDT Anthony Norton MD LAB BLOOD ORDERABLES Final Re sult Performing Organization Address [facility] Co de Phone Number [facility] [address] [place] [address] * (ABNORMAL) Ferritin (09/30/2024 3:00 AM EDT) Only the most recent of3 resultswithin the time period is included. Ferritin 2,081(H) 10 - 291 ng/mL [facility] 09/30/2024 3:00 AM EDT 10/01/2024 1:31 PM EDT Anthony Norton MD LAB BLOOD ORDERABLES Final Re sult Performing Organization Address [facility] de Phone Number [facility] [address] [place] [address] * (ABNORMAL) Creatinine, serum (09/30/2024 3:00 AM EDT) Only the most recent of2 resultswithin the time period is included. Creatinine 3.65(H) 0.55 - 1.02 mg/dL [facility] 09/30/2024 3:00 AM EDT 10/01/2024 1:31 PM EDT us Anthony Norton MD LAB BLOOD ORDERABLES Final Re sult Performing Organization Address [facility] Co de Phone Number [facility] [address] [place] [address] * (ABNORMAL) Bilirubin, total (09/30/2024 3:00 AM EDT) Only the most recent of3 resultswithin the time period is included. Total Bilirubin 0.2(L) 0.3 - 1.2 mg/dL [facility] 09/30/2024 3:00 AM EDT 10/01/2024 1:31 PM EDT us Anthony Norton MD LAB BLOOD ORDERABLES Final Re sult [facility] [address] [place] [address] * (ABNORMAL) Lipid panel (09/30/2024 3:00 AM EDT) Only the most recent of2 resultswithin the time period is included. Cholesterol 254(H) <200 mg/dL [facility] Comment: Optimal: ?<200 Borderline: ? 200-239 Higher Risk: ?>239 Triglycerides 194(A) <150 mg/dL [facility] Comment: Optimal: ?<150 Borderline High: ??150-199 High: ? 200-499 Very High: ?>499 HDL 77 >59 mg/dL [facility] Comment: Desirable: ?>59 Higher Risk: ?<40 LDL-Calc 138(A) <100 mg/dL [facility] Comment: Optimal: ?<100 Above Optimal: ?100-129 Borderline High: ??130-159 High: ? 160-189 Very High: ?>189 VLDL Cholesterol Hunter 39(A) <30 mg/dL [facility] Comment: Optimal: ?<30 Borderline High: ??30-39 High: ? 40-99 Very High: ?>99 Chol/HDL Ratio 3.3(A) <3.3 [facility] Comment: Optimal: ?<3.3 Higher Risk: ?>6.2 09/30/2024 3:00 AM EDT 10/01/2024 1:31 PM EDT Anthony Norton MD LAB BLOOD ORDERABLES Final Re sult Performing Organization Address [facility] de Phone Number [facility] [address] [place] [address] * (ABNORMAL) Electrolyte panel (09/30/2024 3:00 AM EDT) Only the most recent of3 resultswithin the time period is included. Sodium 135(L) 136 - 145 mEq/L [facility] Potassium 4.6 3.4 - 5.0 mEq/L [facility] Chloride 104 98 - 107 mEq/L [facility] Bicarbonate (CO2) 21 21 - 31 mEq/L [facility] Anion Gap 10 3 - 14 mEq/L [facility] 09/30/2024 3:00 AM EDT 10/01/2024 1:31 PM EDT Anthony Norton MD LAB BLOOD ORDERABLES Final Re sult Performing Organization Address [facility] de Phone Number [facility] [address] [place] [address] * (ABNORMAL) Basic Metabolic Panel Bundled (09/26/2024 3:00 AM EDT) Only the most recent of8 resultswithin the time period is included. Sodium 138 136 - 145 mEq/L [facility] Potassium 4.4 3.4 - 5.0 mEq/L [facility] Chloride 106 98 - 107 mEq/L [facility] Bicarbonate (CO2) 24 21 - 31 mEq/L [facility] Anion Gap 8 3 - 14 mEq/L [facility] BUN 61(H) 7 - 25 mg/dL [facility] Calcium 8.3(L) 8.6 - 10.3 mg/dL [facility] Creatinine 3.33(H) 0.55 - 1.02 mg/dL [facility] 09/26/2024 3:00 AM EDT 09/27/2024 1:23 PM EDT us Anthony Norton MD LAB [id number] SOLICITED RESULTS Final Result Performing Organization Address [facility] de Phone Number [facility] [address] [place] [address] * (ABNORMAL) Hemoglobin (09/26/2024 3:00 AM EDT) Only the most recent of2 resultswithin the time period is included. Hgb 8.9(L) 11.2 - 15.7 g/dL [facility] Hemoglobin x 3 26.7(L) 33.6 - 47.1 g/dL [facility] 09/26/2024 3:00 AM EDT 09/27/2024 1:27 PM EDT us Anthony Norton MD LAB BLOOD ORDERABLES Final Re sult Performing Organization Address [facility] de Phone Number [facility] [address] [place] [address] * (ABNORMAL) Creatinine clearance, urine, 24 hour (09/16/2024 3:00 AM EDT) Only the most recent of3 resultswithin the time period is included. Patient Height (FT) 165.0 cm [facility] Dry Weight 68.0 kg [facility] Body Surface Area 1.75 m2 [facility] Comment:Body surface area es timated from Kimberli and Kimberli formula Urine Volume 900 mL [facility] Collection Interval, Ur 1,440 min [facility] Creatinine, Urine 39 mg/dL [facility] Comment:See 24 Hour Urine Cr eatinine for Reference Range in mg/24hr Creatinine 3.78(H) 0.55 - 1.02 mg/dL [facility] Creatinine renal clearance 6.4(L) 75.0 - 115.0 mL/min/1.7 3m2 [facility] 09/16/2024 3:00 AM EDT 09/17/2024 1:09 PM EDT us Anthony Norton MD LAB URINE ORDERABLES Final Re sult Performing Organization Address [facility] de Phone Number [facility] [address] [place] [address] * (ABNORMAL) Hemoglobin and hematocrit (09/16/2024 3:00 AM EDT) Only the most recent of2 resultswithin the time period is included. Hgb 8.6(L) 11.2 - 15.7 g/dL [facility] Hematocrit 26.5(L) 34.1 - 44.9 % [facility] Hemoglobin x 3 25.8(L) 33.6 - 47.1 g/dL [facility] 09/16/2024 3:00 AM EDT 09/17/2024 1:04 PM EDT Anthony Norton MD LAB BLOOD ORDERABLES Final Re sult Performing Organization Address [facility] de Phone Number [facility] [address] [place] [address] * Phosphorus (09/16/2024 3:00 AM EDT) Phosphorus, Serum 3.8 2.5 - 5.0 mg/dL [facility] 09/16/2024 3:00 AM EDT 09/17/2024 1:09 PM EDT Anthony Norton MD LAB BLOOD ORDERABLES Final Re sult Performing Organization Address [facility] de Phone Number [facility] [address] [place] [address] * Confirmation Test HCV (08/08/2024 3:00 AM EST) Hep C Ab Confirmation Not needed [facility] 08/08/2024 3:00 AM EST 08/09/2024 1:15 PM EST Anthony Norton MD LAB BLOOD ORDERABLES Final Re sult Performing Organization Address [facility] de Phone Number [facility] [address] [place] [address] * HEPATITIS C ABS W/REFLEX RNA DETECTR (08/08/2024 3:00 AM EST) [facility] Hep C Virus Ab Non-Reacti ve Non-Reacti ve [facility] 08/08/2024 3:00 AM EST 08/09/2024 1:17 PM EST Anthony Norton MD LAB [id number] SOLICITED RESULTS Final Result Performing Organization Address [facility] de Phone Number [facility] [address] [place] [address] * Hepatitis B Core Antibody, Total (08/08/2024 3:00 AM EST) [facility] HBc Total Ab, S Negative Negative [facility] 08/08/2024 3:00 AM EST 08/09/2024 1:17 PM EST Anthony Norton MD LAB BLOOD ORDERABLES Final Re sult Performing Organization Address [facility] de Phone Number [facility] [address] [place] [address] * Aluminum level (08/08/2024 3:00 AM EST) [facility] Aluminum 4 1 - 20 ug/L [facility] 08/08/2024 3:00 AM EST 08/09/2024 1:21 PM EST Anthony Norton MD LAB BLOOD ORDERABLES Final Re sult Performing Organization Address [facility] de Phone Number [facility] [address] [place] [address] * Vitamin D 25 Hydroxy (08/08/2024 3:00 AM EST) [facility] Vitamin D, 25-Hydroxy 38 30 - 100 ng/mL [facility] Comment: Status ? Adult ?? Pediatric Deficient: ? <20 ? <15 Insufficient: ??20-29 ?? 15-19 Sufficient: ?30-100 ??20-100 08/08/2024 3:00 AM EST 08/09/2024 1:17 PM EST us Anthony Norton MD LAB BLOOD ORDERABLES Final Re sult Performing Organization Address [facility] de Phone Number [facility] [address] [place] [address] * (ABNORMAL) Hepatitis B Surface Antibody (08/08/2024 3:00 AM EST) Hep B Surface Antibody <4(A) mIU/mL [facility] Comment: Interpretation: <10: No Immunity >=10: Probable Immunity 08/08/2024 3:00 AM EST 08/09/2024 1:17 PM EST Anthony Norton MD LAB BLOOD ORDERABLES Final Re sult Performing Organization Address [facility] de Phone Number [facility] [address] [place] [address] * Uric Acid (08/08/2024 3:00 AM EST) Uric Acid 5.0 2.3 - 6.6 mg/dL [facility] 08/08/2024 3:00 AM EST 08/09/2024 1:17 PM EST Anthony Norton MD LAB BLOOD ORDERABLES Final Re sult Performing Organization Address [facility] de Phone Number [facility] [address] [place] [address] from Last 3 Months Insurance [address] [place] [id number] [facility] MEDICARE Care Teams Supervisor Maintenance Relationship Specialty Start Date End Date Eloisa Vázquez [address] [place] [id number] PCP - General Internal Medicine 07/11/24
--- OUTSIDE RECORDS SUMMARY | 2024-10-03 05:54 | XMS_ITS | Encounter Summary ---
Author Organization [facility] Address [address] [place] [address] Care Team Providers Care Loan Analyst Name Role Phone Marie Vázquezmankamryn CHERY Primary Care Provider [phone] Encounter Details Date Type Department Care Team (Late st Contact Info) Description 04/12/2024 1:41 PM EDT Hospital Encounter TH HISTORIC ENCOUNTERS EASTERN CONVERSION ONLY Jaime Grimaldo MD [address] [place] [phone] Social History Tobacco Use Types Packs/Day Years [...] summerof this year while she was in [place] developed some respiratory infection/COVID, patient also have [...] issues, was seen by a physician in [place] (in urgent care clinic), CT scan of [...] Care Team (Late st Contact Info) Description 10/17/2024 1:20 PM EDT Telemedicine Endocrinology - [place] [address] [place] [phone] Kathy Michelle PA [address] [place] [address] 11/11/2024 11:00 AM EDT Ancillary Procedure [facility] - [address] [place] [address] 11/14/2024 11:30 AM EDT Appointment [facility] CT Scan [address] [place] [phone] 11/18/2024 2:15 PM EDT Office Visit Internal Medicine - [facility] [address] [place] [address] Brigidoeverardo Eloisa [address] [place] [address] 12/01/2024 10:00 AM EDT Office Visit Thoracic Surgery - [place] [address] [place] [phone] Cecily Montez MD [address] [place] [address] documented as of this encounter Procedures Procedure [...] documented as of this encounter Care Teams Loan Analyst Relationship Specialty Start Date End Date LoboconcettaMarieEloisaDO beto [address] [facility] [place] [address] PCP - General 04/12/24 documented as of this encounter
--- OUTSIDE RECORDS SUMMARY | 2024-10-03 05:54 | XMS_ITS | Clinical Summary ---
Author Organization [facility] Address [address] [place] [address] Care Team Providers Care Heating And Ventilating Tender Name Role Phone Eloisa Vázquez DO Primary Care Provider [phone] Allergies No known active allergies Medications cetirizine [...] total) 2 (two) times a day. 08/06/19 Active carvediloL (COREG) 3.125 mg tablet Take by mouth 2 (two) times a day with meals. Active insulin glargine (LANTUS SoloStar) 100 unit/mL (3 mL) injection pen 10 untis at bedtime 09/07/19 Active insulin lispro (HumaLOG KwikPen) 100 unit/mL injection pen Use three times a day before meals: <100: 0 units, 151-200: 2 units, 201-250: 4 units, 251-300: 6 units, 301-350: 7 units, 351-400: 8 units, >400: call me and use 9 units 09/07/19 Active predniSONE (DELTASONE) 20 mg tablet Take 3 tablets (60 mg total) by mouth 1 (one) time each day. 08/06/19 025 thiamine (VITAMIN B-1) 100 mg tablet Take 1 tablet (100 mg total) by mouth 1 (one) time each day. 08/06/19 025 sulfamethoxazo le-trimethopri m (BACTRIM DS,SEPTRA DS) 800-160 mg per tablet Take 1 tablet by mouth 3 (three) times a week for 16 doses. 08/08/19 025 polyethylene glycol (MIRALAX) 17 gram packet Take 17 g by mouth 1 (one) time each day if needed for constipation. 08/05/19 025 pantoprazole (PROTONIX) 40 mg EC tablet Take 1 tablet (40 mg total) by mouth 1 (one) time each day before breakfast. Do not crush, chew, or split. 08/06/19 25 025 B complex-vitami n C-folic acid (NEPHRO-SAVITA) 0.8 mg tablet Take 1 tablet by mouth 1 (one) time each day. 08/06/19 25 025 glipiZIDE (GLUCOTROL XL) 5 mg 24 hr tablet TAKE 2 TABLETS BY MOUTH IN THE MORNING AND TAKE 1 TABLET BY MOUTH IN THE AFTERNOON (WITH MEALS) 300 tablet 1 08/12/19 25 025 Discontinued cephalexin (KEFLEX) 500 mg capsule Take 1 capsule (500 mg total) by mouth 2 (two) times a day for 10 days. 20 each 09/13/19 25 025 Active Problems Patient Care Coordination No te Formatting of this note migh t be different from the original. Barriers: Renal Bx 07/22 w/ path pending, new HD, trend labs, H/H, heparin drip- LLE DVT, repeat Pt eval, lung mass biopsy 07/27 Plan: 1st choice - [facility] or [facility] d/t onsite HD. [facility] accepting w family to provide HD [...] general and how their size, shape, and pack changer time affect her level of suspicion [...] weeks. She will need to see her call person prior to procedure. Hypertension 06/01/2024 Hyperlipidemia 06/01/2024 [...] Encounters Date Type Department Care Team Description 09/12/2024 5:08 PM EDT - 09/13/2024 12:10 AM EDT Emergency [facility] Emergency [address] [place] [phone] Anthony Sparks MD Fall, initial encounter (Primary Dx); Acute cystitis without hematuria Discharge Disposition: Home or Self Care 09/06/2024 4:40 PM EDT Office Visit Endocrinology [address] [phone] Kathy Michelle PA Type 2 diabetes mellitus without complication, without long-term current use of insulin (CMS/HCC) (Primary Dx); CKD (chronic kidney disease) stage 4, GFR 15-29 ml/min (CMS/HCC); Primary hypertension 08/23/2024 3:00 PM EST Office Visit Gastroenterology - [address] [facility] 299 [facility] [address] [place] [phone] Josiane Smith, JUNITO Iron deficiency anemia, unspecified iron deficiency anemia type; History of cancer of unknown primary site 08/22/2024 8:30 AM EST - 08/22/2024 11:59 PM EST Hospital Encounter [facility] [address] [place] [phone] Chencho Wayne MD Crescentic glomerulonephritis (Primary Dx); Cresentic glomerulonephritis of transplanted kidney Discharge Disposition: Home or Self Care 08/22/[address] [phone] Haley Andrews [facility] 08/15/2024 1:30 PM EST Office Visit Thoracic Surgery - [place] [address] [facility] [address] [place] [phone] Cecily Montez MD Pulmonary nodule (Primary Dx); Lung mass 08/11/[address] [phone] Nalini Clark RN 08/10/2024 10:00 AM EST Office Visit [facility] Hematology Oncology [address] [place] [phone] Jaime Grimaldo MD Lung mass (Primary Dx); Normocytic anemia; Chronic renal failure, stage 5 (CMS/HCC) 08/09/2024 Telephone [address] [phone] Chencho Wayne MD provider call back 08/05/2024 11:46 AM EST Anesthesia Event [facility] OR [address] [place] [phone] Monroe Kim MD 08/05/2024 11:30 AM EST - 08/05/2024 1:30 PM EST Surgery [facility] OR [address] [place] [phone] Cecily Montez MD Navigation bronchoscopy/EBUS [34700 (CPT??) +2 more] 08/01/2024 Telephone [facility] [address] [place] [phone] Eloisa Vázquez DO Forms/questionnaires (PFML) 07/08/2024 10:31 AM EST - 08/06/2024 1:09 PM EST Hospital Encounter [facility] Urology Unit [address] [place] [address] Jj Wolfe MD Flores, Carlos M, MD Japaridze, Anna, MD Santoyo-Pacheco, Omar D, MD Kokosadze, MD Kareen Musa James T, MD Seralathan, Manikandan, MD Anemia, unspecified type (Primary Dx); Hyponatremia; Acute on chronic renal insufficiency; Acute encephalopathy; Bilateral leg edema; Pulmonary nodule Discharge Disposition: Shelter Facility 07/05/2024 Telephone [facility] - [facility] [address] [facility] [address] [place] [address] Primo Navarro MD Pre-op Visit from Last 3 Months Surgical History Surgery Date Site/Laterality Comments OTHER SURGICAL HISTORY 05/2012 PROCEDURE: ---- OTHER ----; COMMENT: lumbar microdiscectomy CATARACT EXTRACTION 2019 Bilateral PROCEDURE: HISTORICAL CATARACT REMOVAL Medical History Medical History Date Comments Diabetes mellitus, type 2 ([facility]/HCC) 02/14/2014 DX:Diabetes mellitus, type 2 (HCC) Hyperlipidemia [...] Anemia Arthritis Joint pain DVT, lower extremity LEFT LEG History of renal dialysis CURREN T [...] COPD Brother 3 Alive COPD Brother 4 OR Daughter Alive Healthy Father (Age 54) OR Mother (Age 93) Osteoporos is, HTN, Arthritis [...] Sign Reading Time Taken Comments Blood Pressure 151/63 09/12/2024 11:32 PM EDT Pulse 80 09/12/2024 11:32 PM EDT Temperature 36.3 ??C (97.3 ??F) 09/12/2024 11:32 PM E DT Respiratory Rate 20 09/12/2024 11:32 PM EDT Oxygen Saturation 100% 09/12/2024 11:32 PM EDT Inhaled Oxygen Concentration - - Weight 68 kg (150 lb) 09/12/2024 5:24 PM EDT Height 162.6 cm (5' 4 ) 09/12/2024 5:24 PM EDT Body Mass Index 25.75 09/12/2024 5:24 PM EDT Plan of Treatment Upcoming Encounters Date Type Department Care Team (Late st Contact Info) Description 10/17/2024 1:20 PM EDT Telemedicine Endocrinology - [facility] [address] [place] [phone] Kathy Michelle PA [address] [place] [address] 11/11/2024 11:00 AM EDT Ancillary Procedure [facility] - [facility] [address] [facility] [address] [place] [phone] 11/14/2024 11:30 AM EDT Appointment [facility] CT Scan [address] [place] [phone] 11/18/2024 2:15 PM EDT Office Visit Internal Medicine - [facility] [address] [place] [address] Eloisa Vázquez DO [address] [place] [address] 12/01/2024 10:00 AM EDT Office Visit Thoracic Surgery - [place] [address] [phone] Cecily Montez MD [address] [address] Health Maintenance Due Date Last Done Comments Diabetes: Annual Foot Exam 1955 Diabetes: Annual Retina Eye Exam 1955 Zoster Vaccines (1 of 2) 1962 RSV Immunization Adult Patients (1 - 1-dose 75+ series) 2018 Depression Screening 06/07/2022 Medicare Annual Wellness Visit 06/07/2022 Social Influencers of Health Screening 06/07/2022 Osteoporosis Screening (Bone Density Screening) 04/15/2023 04/15/2018 COVID-19 Vaccine ( season) 2024 04/21/2022, 10/14/2021, 03/27/2021, Additional history exists Diabetes: Blood Sugar Control Test (HGBA1C) 02/05/2025 08/08/2024, 08/08/2024, 05/31/2024, Additional history exists Falls Risk Assessment 08/22/2025 08/22/2024 Hypertension/CHF/CAD Annual BMP Blood Test 09/12/2025 09/12/2024, 09/05/2024, 08/29/2024, Additional history exists Cholesterol Screening (Lipid Panel) [...] this topic Medical Devices Implanted Type Area Pharmacist Assistant Device Identifier Shelf Expiration Date Model / Serial / Lot Cath Dial W/Vt Kt 14.2pl48bj Palindrome Precision - [id number] - [id number] Implanted:Qty: 1 on 07/15/2024 by Fela Palomo MD at [facility] Dialysis Catheters Left: Chest Wall [facility] [id number] 09/26/2028 [id number] / [id number] 9 Sponge Surgifoam Gel 12 X 7mm - [id number] - [id number] Implanted:Qty: 1 on 05/23/2024 by Fela Palomo MD at [facility] Hemostasis Right: Lung [employer] [id number] 08/27/20271971 039852 / Sponge Surgifoam Gel 12 X 7mm - [id number] - [id number] Implanted:Qty: 1 on 07/22/2024 by Fela Palomo MD at [facility] Hemostasis Left: Kidney [employer] [id number] 05/24/20281971 [id number] / Procedures Procedure Name Priority Date/Time Associated Diagnosis Comments ECG ANNOTATED 09/13/2024 ECG 12-LEAD STAT 09/12/2024 9:12 PM EDT TROPONIN I HIGH SENSITIVITY STAT 09/12/2024 8:[address] HEAD WO CONTRAST STAT 09/12/2024 8 [address] CERVICAL SPINE WO CONTRAST STAT 09/12/2024 8:12 PM EDT ECG 12-LEAD STAT 09/12/2024 6:38 PM EDT ROBERTSON URINE CULTURE TUBE STAT 09/13/19 6:38 PM EDT URINALYSIS WITH REFLEX MICROSCOPIC AND CULTURE STAT 09/12/2024 6:38 PM EDT URINALYSIS WITH REFLEX MICROSCOPIC AND CULTURE STAT 09/12/2024 6:38 PM EDT CULTURE URINE STAT 09/12/2024 6:38 PM EDT CBC WITH AUTO DIFFERENTIAL STAT 09/12/2024 6:22 PM EDT TROPONIN I HIGH SENSITIVITY STAT 09/12/2024 6:22 PM EDT BASIC METABOLIC PANEL STAT 09/12/2024 6:22 PM EDT CBC AND DIFFERENTIAL STAT 09/12/2024 6:22 PM EDT POCT GLUCOSE BLOOD Routine 08/06/2024 11 :07 [...] ENDOTRACHEAL(NO CHARGE) Routine 08/05/2024 12:08 PM EST NH BRONCHOSCOPY RIGID/FLEXIBLE W/EBUS >=3 MEDIASTINAL/HILAR LYMPH NODES 08/05/2024 11:46 AM EST Pulmonary nodule NH BRONCHOSCOPY INCL FLUROSCOPIC GUIDANCE W PLCMNT FIDUCIAL MARKER SGL/MULT 08/05/2024 11:46 AM EST Pulmonary nodule NH BRONCHOSCOPY RIGID/FLEXIBLE INCL FLUORO W/THERAPY ASPIRATION INITIAL [...] PM EST POCT GLUCOSE BLOOD Routine 07/22/2024 4 :10 PM EST IR BX NDL RENAL PERC [...] BLOOD Routine 07/11/2024 8: 17 AM EST NH IMMUNOFIXATION ELECTROPHORESIS SERUM Routine 07/11/2024 6:21 AM [...] BLOOD Routine 07/08/2024 6: 19 PM EST NH PROTEIN ELECTROPHORETIC FRACTIONATION & QUANTITATION SERUM Routine [...] EST ECG OUTSIDE 07/08/2024 ECG ANNOTATED 07/08/2024 HEMOGLOBIN A1C Routine 05/31/2024 9:22 AM EST Cataract, diabetic (CMS/HCC) LIPID PANEL WITH REFLEX TO DIRECT LDL Routine 05/31/2024 9:22 AM EST Iron deficiency anemia, unspecified Cataract, diabetic (CMS/HCC) Hyperlipemia [facility] DEXA AXIAL SKELETON Routine 04/15/20 10:29 AM EDT Encounter for screening for osteoporosis from Last 3 Months or Most Recently Relevant to Health Maintenance Results * ECG-Annotated (09/13/2024) Only the most recent of2 resultswithin the time period is included. Provider Onbase ECG ORDERABLES Final Result * ECG 12 lead (09/12/2024 9:12 PM EDT) Only the most recent of3 resultswithin the time period is included. Pathologist [facility] Ventricular Rate ECG 83 BPM GEMUSE Atrial Rate 83 BPM GEMUSE P-R Interval 178 ms GEMUSE QRS Duration 130 ms GEMUSE Q-T Interval 394 ms GEMUSE QTc 462 ms GEMUSE P Wave [place] 66 degrees GEMUSE R [place] 15 degrees GEMUSE T [place] 11 degrees GEMUSE ECG Interpretation Sinus rhythm with Premature atrial complexes Right bundle branch block Abnormal ECG When compared with ECG of 12-SEP-2024 21:12, No significant change was found Confirmed by MD Ramon, [place] ([id number]) on 09/14/2024 10:02:49 AM GEMUSE 09/12/2024 9:12 PM EDT 09/14/2024 10:02 AM EDT Jose HEDRICK ECG ORDERABLES Final Result GEMUSE * (ABNORMAL) Troponin I high sensitivity (NOW and then in 1 hour) (09/12/2024 8:27 PM EDT) Only the most recent of4 resultswithin the time period is included. [facility] High Sensitivity Troponin I 110(H) <=54 ng/L LAB CHEMISTRY METHOD 09/12/2024 10:11 PM EDT [facility] Blood Venous blood specimen / Unknown Venipuncture / Unknown 09/12/2024 8:27 PM EDT 09/12/2024 9:33 PM EDT Narrative [facility] - 09/12/2024 10:11 PM EDT High levels of biotin in samples may falsely decrease hsTroponin values. ??Use caution when interpreting hsTroponin results in patients taking biotin who exhibit renal impairment (eGFR <60) or in patients taking more than 20 mg/day of biotin. us Madan Braga MD LAB BLOOD ORDERABLES Final Resu lt [facility] [address] [place] [address], * CT Cervical Spine wo Contrast (09/12/2024 8:12 PM EDT) Only the most recent of2 resultswithin the time period is included. Anatomical Region Laterality Modality Spine, C-spine Computed Tomogra phy 09/12/2024 8:55 PM EDT Impressions 09/12/2024 8:55 PM EDT No cervical spine fracture. This document has been electronically signed by: Dennise Main MD on 09/12/2024 20:55:04 Narrative 09/12/2024 8:55 PM EDT INDICATION: trauma, neck pain CT cervical spine without contrast Comparison: None Findings: Vertebral alignment is within normal limits. Multilevel degenerative disc disease and facet osteoarthritis. No central canal stenosis. No acute fractures or dislocations. No acute findings on limited view of the intracranial contents. Soft tissues of the neck are normal. There is scarring at the right lung apex. Partial visualization of a left-sided central venous line. Procedure Note Aderhkirstent-Dennise Main MD - 09/12/2024 INDICATION: trauma, neck pain CT cervical spine without contrast Comparison: None Findings: Vertebral alignment is within normal limits. Multilevel degenerative disc disease and facet osteoarthritis. Nocentral canal stenosis. No acute fractures or dislocations. No acute findings on limited view of the intracranial contents. Soft tissues of the neck are normal. There is scarring at the right lung apex. Partial visualization of a left-sided central venous line. IMPRESSION: No cervical spine fracture. This document has been electronically signed by: Dennise Main MD on 09/12/2024 20:55:04 Madan Braga MD [facility] [place] PROCEDURES Final Result * CT Head wo Contrast (09/12/2024 8:12 PM EDT) Only the most recent of2 resultswithin the time period is included. Anatomical Region Laterality Modality Head and Neck Computed Tomogra phy 09/12/2024 8:56 PM EDT Impressions 09/12/2024 8:56 PM EDT No skull fracture or intracranial hemorrhage. This document has been electronically signed by: Dennise Main MD on 09/12/2024 20:56:04 Narrative 09/12/2024 8:56 PM EDT INDICATION: Head injury with or without LOC CT head without contrast Comparison: None Findings: No intra-axial mass, midline shift, hydrocephalus, or acute hemorrhage. Involutional change brain parenchyma, compatible with advanced age. Moderate white matter disease. There is mucosal thickening within the left sphenoid sinus. The orbits are unremarkable. There is no acute fracture. Procedure Note Minnie-Dennise Main MD - 09/12/2024 INDICATION: Head injury with or without LOC CT head without contrast Comparison: None Findings: No intra-axial mass, midline shift, hydrocephalus, or acute hemorrhage. Involutional change brain parenchyma, compatible with advanced age. Moderate white matter disease. There is mucosal thickening within the left sphenoid sinus. The orbits are unremarkable. There is no acute fracture. IMPRESSION: No skull fracture or intracranial hemorrhage. This document has been electronically signed by: Dennise Main MD on 09/12/2024 20:56:04 us Madan Braga MD [facility] [place] PROCEDURES Final Result * (ABNORMAL) Urinalysis with reflex microscopic and culture (09/12/2024 6:38 PM EDT) Only the most recent of2 resultswithin the time period is included. Specific [place] Urine 1.025 1.003 - 1.030 LAB URINALYSIS - AUTOMATED METHOD 09/12/2024 8:45 PM [facility] pH, Urine 6.5 5.0 - 8.0 pH LAB URINALYSIS - AUTOMATED METHOD 09/12/2024 8:45 PM [facility] Leukocytes, Urine Moderate(A) Negative LAB URINALYSIS - AUTOMATED METHOD 09/12/2024 8:45 PM [facility] Nitrite, Urine Negative Negative LAB URINALYSIS - AUTOMATED METHOD 09/12/2024 8:45 PM [facility] Protein, Urine >=300(A) <=Trace mg/dL LAB URINALYSIS - AUTOMATED METHOD 09/12/2024 8:45 PM [facility] Glucose, Urine 100(A) Negative mg/dL LAB URINALYSIS - AUTOMATED METHOD 09/12/2024 8:45 PM [facility] Ketones, Urine Negative Negative mg/dL LAB URINALYSIS - AUTOMATED METHOD 09/12/2024 8:45 PM [facility] Urobilinogen , Urine 0.2 0.2 - 1.0 mg/dL LAB URINALYSIS - AUTOMATED METHOD 09/12/2024 8:45 PM [facility] Bilirubin, Urine Negative Negative LAB URINALYSIS - AUTOMATED METHOD 09/12/2024 8:45 PM [facility] Blood, Urine Large(A) Negative LAB URINALYSIS - AUTOMATED METHOD 09/12/2024 8:45 PM [facility] RBC, Urine 10(H) 0 - 4 /HPF 09/12/2024 8:45 PM [facility] WBC, Urine >100(H) 0 - 4 /HPF 09/12/2024 8:45 PM EDT [facility] Squamous Epithelial, Urine 50 0 - 60 /LPF 09/12/2024 8:45 PM EDT [facility] Non-Squamous Epithelial, Urine 2-5 Transitional epithelial cells. /LPF 09/12/2024 8:45 PM EDT [facility] Bacteria, Urine Many(A) Negative /HPF 09/12/2024 8:45 PM EDT [facility] Hyaline Casts, Urine 3 0 - 3 /LPF 09/12/2024 8:45 PM EDT [facility] Other Casts, Urine 2-5 Coarse Granular casts. Rare Fine Granular casts. Rare Waxy casts. /LPF 09/12/2024 8:45 PM EDT [facility] Urine Urine specimen obtained by clean catch procedure / Unknown Non-blood Collection / Unknown 09/12/2024 6:38 PM EDT 09/12/2024 7:59 PM EDT Anthony Sparks MD LAB URINE ORDERABLES Final Result Performing Organization Address [facility] Co de Phone Number [facility] [address] [place] [address], [place] [phone] * Robertson urine culture tube (09/12/2024 6:38 PM EDT) Only the most recent of3 resultswithin the time period is included. Extra Tube Hold for add-ons. 09/12/2024 9:01 PM EDT [facility] Comment:Auto resulted. Urine Urine specimen obtained by clean catch procedure / Unknown Non-blood Collection / Unknown 09/12/2024 6:38 PM EDT 09/12/2024 7:59 PM EDT Anthony Sparks MD LAB URINE ORDERABLES Final Result [facility] [address] [place] [address], * (ABNORMAL) Culture urine (09/12/2024 6:38 PM EDT) Only the most recent of2 resultswithin the time period is included. Culture, Urine >100,000 CFU/mL Pseudomonas aeruginosa(A) KIRILL 09/16/2024 9:53 AM EDT [facility] Comment: This is an edited result. Previous organism was Gram negative bacilli on 09/15/2024 at 1216 EDT. Culture, Urine >100,000 CFU/mL Enterococcus faecalis(A) KIRILL 09/16/2024 9:53 AM EDT [facility] Comment: The organism value for this result has been updated. These results have been appended to the previously preliminary verified report. Edited result: Previously reported as Enterococcus species on 09/15/2024 at 1216 EDT. Urine Urine specimen obtained by clean catch procedure / Unknown Non-blood Collection / Unknown 09/12/2024 6:38 PM EDT 09/12/2024 8:45 PM EDT Narrative Organism Antibiotic Method Susceptibility Pseudomonas aeruginosa Piperacillin/Tazobactam KIRILL 16 ug/ml: Susceptible Pseudomonas aeruginosa Cefepime KIRILL 4 ug/ml: Susceptible Pseudomonas aeruginosa Meropenem KIRILL 2 ug/ml: Susceptible Pseudomonas aeruginosa Amikacin KIRILL 4 ug/ml: Susceptible Pseudomonas aeruginosa Ciprofloxacin KIRILL 0.5 ug/ml: Susceptible Pseudomonas aeruginosa Levofloxacin KIRILL 2 ug/ml: Intermediate Enterococcus faecalis Benzylpenicillin KIRILL 4 ug/ml: Susceptible Enterococcus faecalis Ampicillin KIRILL <=2 ug/ml: Susceptible Enterococcus faecalis Ciprofloxacin KIRILL <=0.5 ug/ml: Susceptible Enterococcus faecalis Levofloxacin KIRILL 0.5 ug/ml: Susceptible Enterococcus faecalis Linezolid KIRILL 2 ug/ml: Susceptible Enterococcus faecalis Vancomycin KIRILL 1 ug/ml: Susceptible Enterococcus faecalis Tetracycline KIRILL >=16 ug/ml: Resistant Enterococcus faecalis Nitrofurantoin KIRILL <=16 ug/ml: Susceptible Anthony Sparks MD LAB MICROBIOLOGY - GENERAL ORDERABLES Final Result [facility] [address] [place] [address], * (ABNORMAL) CBC auto differential (09/12/2024 6:22 PM EDT) Only the most recent of23 resultswithin the time period is included. WBC 6.9 4.8 - 10.8 K/mcL LAB HEMETOLOGY METHOD 09/12/2024 6:51 PM EDT [facility] RBC 2.80(L) 3.80 - 4.80 M/mcL LAB HEMETOLOGY METHOD 09/12/2024 6:51 PM EDT [facility] Hemoglobin 8.2(L) 11.5 - 16.0 g/dL LAB HEMETOLOGY METHOD 09/12/2024 6:51 PM EDT [facility] Hematocrit 25.2(L) 35.0 - 47.0 % LAB HEMETOLOGY METHOD 09/12/2024 6:51 PM EDT [facility] MCV 90.0 79.0 - 98.0 FL LAB HEMETOLOGY METHOD 09/12/2024 6:51 PM EDT [facility] MCH 29.3 27.0 - 32.0 pcg LAB HEMETOLOGY METHOD 09/12/2024 6:51 PM EDT [facility] MCHC 32.5 32.0 - 37.0 g/dL LAB HEMETOLOGY METHOD 09/12/2024 6:51 PM EDT [facility] RDW 20.2(H) 11.0 - 15.0 % LAB HEMETOLOGY METHOD 09/12/2024 6:51 PM EDT [facility] Platelets 179 130 - 400 K/mcL LAB HEMETOLOGY METHOD 09/12/2024 6:51 PM EDT [facility] MPV 10.4 7.0 - 11.0 FL LAB HEMETOLOGY METHOD 09/12/2024 6:51 PM EDT [facility] NRBC 0.0 <1.0 % LAB [facility]24 [facility] Absolute 0.00 <0.10 K/mcL [facility]/12[facility]24 6[facility] Neutrophils Relative 88.7 % LAB HEMETOLOGY METHOD 09/12/2024 6:51 PM EDT [facility] Lymphocytes Relative 6.7 % LAB HEMETOLOGY METHOD 09/12/2024 6:51 PM EDT [facility] Monocytes Relative 3.0 % LAB HEMETOLOGY METHOD 09/12/2024 6:51 PM [facility] Eosinophils Relative 0.1 % LAB HEMETOLOGY METHOD 09/12/2024 6:51 PM [facility] Basophils Relative 0.0 % LAB HEMETOLOGY METHOD 09/12/2024 6:51 PM [facility] Immature Granulocytes Relative 1.5 % LAB HEMETOLOGY METHOD 09/12/2024 6:51 PM [facility] Neutrophils Absolute 6.11 1.50 - 7.00 K/mcL LAB HEMETOLOGY METHOD 09/12/2024 6:51 PM [facility] Lymphocytes Absolute 0.46(L) 1.00 - 5.00 K/mcL LAB HEMETOLOGY METHOD 09/12/2024 6:51 PM T [facility] Monocytes Absolute 0.21 0.20 - 1.00 K/mcL LAB HEMETOLOGY METHOD 09/12/2024 6:51 PM [facility] Eosinophils Absolute 0.01 0.00 - 0.50 K/mcL LAB HEMETOLOGY METHOD 09/12/2024 6:51 PM [facility] Basophils Absolute 0.00 0.00 - 0.20 K/mcL LAB HEMETOLOGY METHOD 09/12/2024 6:51 PM EDT [facility] Immature Granulocytes Absolute 0.10(H) 0.00 - 0.03 K/mcL LAB HEMETOLOGY METHOD 09/12/2024 6:51 PM EDT [facility] Blood Venous blood specimen / Unknown Venipuncture / Unknown 09/12/2024 6:22 PM EDT 09/12/2024 6:42 PM EDT us Madan Braga MD LAB BLOOD ORDERABLES Final Resu lt [facility] [address] [place] [address], [place] [phone] * (ABNORMAL) Basic Metabolic Panel (BMP) (09/12/2024 6:22 PM EDT) Only the most recent of28 resultswithin the time period is included. Sodium 137 133 - 145 mmol/L LAB CHEMISTRY METHOD 09/12/2024 7:15 PM [facility] Potassium 4.1 3.5 - 5.5 mmol/L LAB CHEMISTRY METHOD 09/12/2024 7:15 PM [facility] Chloride 103 96 - 110 mmol/L LAB CHEMISTRY METHOD 09/12/2024 7:15 PM [facility] CO2 24 21 - 32 mmol/L LAB CHEMISTRY METHOD 09/12/2024 7:15 PM [facility] Anion Gap 10 3 - 11 LAB CHEMISTRY METHOD 09/12/2024 7:15 PM [facility] Glucose 204(H) 70 - 100 mg/dL LAB CHEMISTRY METHOD 09/12/2024 7:15 PM [facility] BUN 30(H) 5 - 25 mg/dL LAB CHEMISTRY METHOD 09/12/2024 7:15 PM [facility] Creatinine 2.36(H) 0.50 - 1.10 mg/dL LAB CHEMISTRY METHOD 09/12/2024 7:15 PM EDT [facility] eGFR 20(L) >=60 mL/min/1. 73m2 LAB CHEMISTRY METHOD 09/12/2024 7:15 PM EDT [facility] Comment:Calculation based on the??Chronic Kidney Disease Epidemiology Collaboration (CKD-EPI) equation refit??without adjustment for race. BUN/Creatinine Ratio 12.7 LAB CHEMISTRY METHOD 09/12/2024 7:15 PM EDT [facility] Calcium 8.0(L) 8.5 - 10.5 mg/dL LAB CHEMISTRY METHOD 09/12/2024 7:15 PM EDT [facility] Blood Venous blood specimen / Unknown Venipuncture / Unknown 09/12/2024 6:22 PM EDT 09/12/2024 6:42 PM EDT Madan Braga MD LAB BLOOD ORDERABLES Final Resu lt [facility] [address] [place] [address], [place] [phone] * (ABNORMAL) POCT Glucose, blood (08/06/2024 11:07 AM EST) Only the most recent of114 resultswithin the time period is included. Glucose POCT 187(H) 70 - 100 mg/dL 08/06/2024 11:09 AM EST [facility] Blood Capillary blood specimen / Unknown 08/06/2024 11:07 AM EST 08/06/2024 11:10 AM EST Steve Cruz MD LAB POINT OF CA RE TEST DOCKED DEVICE UNSOLICITED RESULTS Final Result [facility] [address] [place] [address], [place] [phone] * XR Chest 1 View (08/05/2024 1:43 [...] Signed Date: 08/05/2024 13:49 ET Workstation ID: [id number] Transcribed By: Self Edit Transcribed Date: 08/05/2024 [...] Signed Date: 08/05/2024 13:49 ET Workstation ID: [id number] Transcribed By: Self Edit Transcribed Date: 08/05/2024 13:46 ET Cecily Montez MD IM XR PROCEDURES Final Result * Culture bronchial with gram stain (08/05/2024 12:32 PM EST) Bronchial Culture No growth at 3 days 08/08/2024 9:42 AM EST [facility] Gram Stain Result No polymorphonuclear leukocytes, No epithelial cells, and No organisms noted 08/08/2024 9:42 AM EST [facility] Wash Structure of upper lobe of right lung / Unknown 08/05/2024 12:32 PM EST 08/05/2024 1:17 PM EST Cecily Montez MD LAB MICROBIOLOGY - GENERAL ORDER SYLVAIN Final Result Performing Organization Address City/[facility]/ZIP Co de Phone Number [facility] [address] [place] [address], [place] [phone] * Concentration (08/05/2024 12:32 PM EST) AFB Concentration Performed 5:05 PM EDT [facility] Wash Structure of upper lobe of right lung / Unknown 08/05/2024 12:32 PM EST 08/05/2024 1:17 PM EST Narrative [facility] - 09/19/2024 5:05 PM EDT Performed at: ??01 - [facility] [address] ??[id number] Silviculture Teacher: Diane Belle MD, Phone: ??[phone] Cecily Montez MD LAB BLOOD ORDERABLES Edited Resu lt - Final [facility] * Culture, afb and smear with reflex to identification and susceptibility (08/05/2024 12:32 PM EST) AFB Specimen Processing Concentration 09/19/2024 5:05 PM EDT [facility] Acid Fast Smear Negative 09/19/2024 5:05 PM EDT [facility] Acid Fast Culture Negative 09/19/2024 5:05 PM EDT [facility] Comment:No acid fast bacilli isolated after 6 weeks. Wash Structure of upper lobe of right lung / Unknown 08/05/2024 12:32 PM EST 08/05/2024 1:17 PM EST Narrative [facility] - 09/19/2024 5:05 PM EDT Performed at: ??01 - [facility] [address] ??[id number] Silviculture Teacher: Diane Belle MD, Phone: ??[phone] us Cecily Montez MD LAB MICROBIOLOGY - GENERAL ORDER SYLVAIN Final Result [facility] * Acid fast bacilli stain (08/05/2024 12:32 PM EST) AFB Stain Result No Acid fast bacilli seen on direct smear (Fuchsin method, 1000x) No Acid Fast Bacilli seen on direct smear 08/05/2024 2:18 PM EST [facility] Wash Structure of upper lobe of right lung / Unknown 08/05/2024 12:32 PM EST 08/05/2024 1:17 PM EST us Cecily Montez MD LAB MICROBIOLOGY - GENERAL ORDER SYLVAIN Final Result Performing Organization Address City/[facility]/ZIP Co de Phone Number [facility] [address] [place] [address], [place] [phone] * Culture fungal, other (08/05/2024 12:32 PM EST) Pathologist [facility] Culture, Fungus Negative for Fungus after 4 Weeks 09/05/2024 8:16 AM EDT [facility] Wash Structure of upper lobe of right lung / Unknown 08/05/2024 12:32 PM EST 08/05/2024 1:17 PM EST us Cecily Montez MD LAB MICROBIOLOGY - GENERAL ORDER SYLVAIN Final Result Performing Organization Address City/[facility]/ZIP Co de Phone Number [facility] [address] [place] [address], [place] [phone] * Non-gynecologic cytology (08/05/2024 12:20 PM EST) [...] lymph node elements present. 08/09/2024 1:04 PM [facility] Specimen A Adequacy Satisfactory for evaluation 08/09/2024 1:04 PM [facility] Specimen B Adequacy Satisfactory for evaluation 08/09/2024 1:04 PM [facility] Specimen C Adequacy Satisfactory for evaluation 08/09/2024 1:04 PM [facility] Specimen D Adequacy Satisfactory for evaluation 08/09/2024 1:04 PM [facility] Specimen E Adequacy Specimen processed and examined, but unsatisfactory for eval of abnormal epithelial 08/09/2024 1:04 PM [facility] Specimen F Adequacy Satisfactory for evaluation 08/09/2024 1:04 PM [facility] Gross Description A. Lung, [...] time 54 hours. 08/09/2024 1:04 PM EST [facility] Disclaimer Unless otherwise specified, all tissue is 10% NB formalin fixed and paraffin embedded. Technical cytopathology services provided by [facility], at [address] [place] [address] (CLIA # [id number]/Gladys Prince MD, Wire Cutter.) 08/09/2024 1:04 PM [facility] Brushing, function (observable entity) [...] MD LAB CYTOLOGY ORDERABLES Final Re sult [facility] [address] [place] [address], [place] [phone] * TH AN ENDOTRACHEAL(NO CHARGE) (08/05/2024 12:08 PM EST) Candelaria Romano CRNA - 08/05/2024 12:08 PM EST Candelaria Tatum CRNA ? 08/05/2024 12:10 PM General Information and Staff Patient location during procedure: OR Anesthesiologist: Monroe Kim MD Resident/CASINO CASHIER MANAGER: Candelaria Tatum CRNA Performed: resident/CASINO CASHIER MANAGER/CAA Performed by: Candelaria Tatum CRNA Authorized by: [...] ANESTHESIA ORDERABLES Final Re sult * (ABNORMAL) CBC - Every 3 Days (08/05/2024 7:03 AM EST) Only the most recent of13 resultswithin the time period is included. [facility] WBC 8.8 4.8 - 10.8 K/mcL LAB HEMETOLOGY METHOD 08/05/2024 7:42 AM [facility] RBC 2.90(L) 3.80 - 4.80 M/mcL LAB HEMETOLOGY METHOD 08/05/2024 7:42 AM [facility] Hemoglobin 7.9(L) 11.5 - 16.0 g/dL LAB HEMETOLOGY METHOD 08/05/2024 7:42 AM [facility] Hematocrit 25.5(L) 35.0 - 47.0 % LAB HEMETOLOGY METHOD 08/05/2024 7:42 AM [facility] MCV 87.6 79.0 - 98.0 FL LAB HEMETOLOGY METHOD 08/05/2024 7:42 AM [facility] MCH 27.1 27.0 - 32.0 pcg LAB HEMETOLOGY METHOD 08/05/2024 7:42 AM [facility] MCHC 31.0(L) 32.0 - 37.0 g/dL LAB HEMETOLOGY METHOD 08/05/2024 7:42 AM [facility] RDW 21.9(H) 11.0 - 15.0 % LAB HEMETOLOGY METHOD 08/05/2024 7:42 AM [facility] Platelets 180 130 - 400 K/mcL LAB HEMETOLOGY METHOD 08/05/2024 7:42 AM [facility] MPV 10.8 7.0 - 11.0 FL LAB HEMETOLOGY METHOD 08/05/2024 7:42 AM [facility] NRBC 0.0 <1.0 % LAB HEMETOLOGY METHOD 08/05/2024 7:42 AM [facility] NRBC Absolute 0.00 <0.10 K/mcL LAB HEMETOLOGY METHOD 08/05/2024 7:42 AM EST [facility] Blood Venous blood specimen / Unknown Venipuncture / Unknown 08/05/2024 7:03 AM EST 08/05/2024 7:34 AM EST Lencho Stuart MD LAB BLOOD ORDERABLES Final R esult Performing Organization Address [facility] de Phone Number [facility] [address] [place] [address], * (ABNORMAL) Creatinine, Serum - Every 7 Days (08/04/2024 6:31 AM EST) Creatinine 2.49(H) 0.50 - 1.10 mg/dL LAB CHEMISTRY METHOD 08/04/2024 7:31 AM EST [facility] eGFR 19(L) >=60 mL/min/1. 73m2 LAB CHEMISTRY METHOD 08/04/2024 7:31 AM EST [facility] Comment:Calculation based on the??Chronic Kidney Disease Epidemiology Collaboration (CKD-EPI) equation refit??without adjustment for race. Blood Venous blood specimen / Unknown Venipuncture / Unknown 08/04/2024 6:31 AM EST 08/04/2024 6:54 AM EST Jonny Mathur MD LAB BLOOD ORDERABLES Final Re sult Performing Organization Address [facility] Co de Phone Number [facility] [address] [place] [address], [place] [phone] * Hepatitis B surface antigen with reflex to confirmation (08/03/2024 8:49 AM EST) Only the most recent of3 resultswithin the time period is included. Hepatitis B Surface Ag Negative Negative LAB CHEMISTRY METHOD 08/03/2024 10:11 AM EST [facility] Blood [...] ORDERABLES Fi nal Result Performing Organization Address City/[facility]/ZIP Co de Phone Number [facility] [address] [place] [address], * Hepatitis B surface antibody quantitative (08/03/2024 8:49 AM EST) Only the most recent of2 resultswithin the time period is included. Hepatitis B Surface Ab Negative Negative LAB CHEMISTRY METHOD 08/03/2024 9:59 AM EST [facility] Hepatitis B Surface Ab Quantitative <3.1 mIU/mL LAB CHEMISTRY METHOD 08/03/2024 9:59 AM EST [facility] Blood Venous blood specimen / Unknown Venipuncture / Unknown 08/03/2024 8:49 AM EST 08/03/2024 9:22 AM EST [facility] - 08/03/2024 9:59 AM EST >=10 mIU/mL is considered to be consistent with immunity. Steve Cruz MD LAB BLOOD ORDERABLES Fi nal Result Performing Organization Address City/[facility]/ZIP Co de Phone Number [facility] [address] [place] [address], * Phosphorus (08/03/2024 6:01 AM EST) Only the most recent of4 resultswithin the time period is included. Phosphorus 4.3 2.5 - 4.5 mg/dL LAB CHEMISTRY METHOD 08/03/2024 8:11 AM EST [facility] Blood Venous blood specimen / Unknown Venipuncture / Unknown 08/03/2024 6:01 AM EST 08/03/2024 7:27 AM EST us Steve Cruz MD LAB BLOOD ORDERABLES Fi nal Result Performing Organization Address City/[facility]/ZIP Co de Phone Number [facility] [address] [place] [address], * Magnesium (08/03/2024 6:01 AM EST) Only the most recent of9 resultswithin the time period is included. Magnesium 2.1 1.9 - 2.6 mg/dL LAB CHEMISTRY METHOD 08/03/2024 8:11 AM EST [facility] Blood Venous blood specimen / Unknown Venipuncture / Unknown 08/03/2024 6:01 AM EST 08/03/2024 7:27 AM EST us Steve Cruz MD LAB BLOOD ORDERABLES Fi nal Result Performing Organization Address City/[facility]/ZIP Co de Phone Number [facility] [address] [place] [address], * Type and screen (08/02/2024 3:04 PM EST) Only the most recent of4 resultswithin the time period is included. ABO Group O 08/02/2024 4:52 PM EST [facility] Rh Type Positive 08/02/2024 4:52 PM EST [facility] Antibody Screen Negative 08/02/2024 4:52 PM EST [facility] Blood Venous blood specimen / Unknown Venipuncture / Unknown 08/02/2024 3:04 PM EST 08/02/2024 4:07 PM EST Steve Cruz MD LAB BLOOD BANK TEST ORD ERABLES Final Result Performing Organization Address City/[facility]/ZIP Co de Phone Number [facility] [address] [place] [address], * Prepare RBC: 1 Units (08/02/2024 2:09 PM EST) Only the most recent of4 resultswithin the time period is included. Product Code [id number] 08/02/2024 6:27 PM EST [facility] Unit Number [id number] 08/02/19 6:27 PM EST [facility] Crossmatch Compatible 08/02/2024 5:03 PM [facility] Dispense Status Transfused 08/02/2024 6:27 PM [facility] Unit ABO Rh OPOS 08/02/2024 6:27 PM [facility] Unit Expiration Date Time [id number] 08/02/2024 6:27 PM [facility] Unit Blood Type 5100 08/02/2024 6:27 PM [facility] Blood Venous blood specimen / Unknown 08/02/2024 2:09 PM EST 08/02/2024 4:07 PM EST Steve Cruz MD BLOOD BANK PRODUCT ORDE RABLES Final Result [facility] [address] [place] [address], * (ABNORMAL) Hemoglobin and hematocrit (07/31/2024 2:30 PM EST) Only the most recent of4 resultswithin the time period is included. Hemoglobin 7.3(L) 11.5 - 16.0 g/dL LAB HEMETOLOGY METHOD 07/31/2024 3:12 PM [facility] Hematocrit 23.7(L) 35.0 - 47.0 % LAB HEMETOLOGY METHOD 07/31/2024 3:12 PM [facility] Blood Venous blood specimen / Unknown Venipuncture / Unknown 07/31/2024 2:30 PM EST 07/31/2024 3:05 PM EST us Jonny Mathur MD LAB BLOOD ORDERABLES Final Re sult [facility] [address] [place] [address], [place] [phone] * (ABNORMAL) Hepatic Function Panel - STAT (07/30/2024 11:52 AM EST) Only the most recent of3 resultswithin the time period is included. Total Protein 5.2(L) 6.0 - 8.0 g/dL LAB CHEMISTRY METHOD 07/30/2024 12:56 PM [facility] Albumin 2.4(L) 3.2 - 5.0 g/dL LAB CHEMISTRY METHOD 07/30/2024 12:56 PM [facility] Total Bilirubin 0.4 0.0 - 1.4 mg/dL LAB CHEMISTRY METHOD 07/30/2024 12:56 PM [facility] Bilirubin, Direct 0.2 0.0 - 0.3 mg/dL LAB CHEMISTRY METHOD 07/30/2024 12:56 PM [facility] Bilirubin, Indirect 0.2 0.0 - 1.1 mg/dL LAB CHEMISTRY METHOD 07/30/2024 12:56 PM [facility] ALT (SGPT) 17 10 - 60 unit/L LAB CHEMISTRY METHOD 07/30/2024 12:56 PM [facility] AST (SGOT) 12 10 - 42 unit/L LAB CHEMISTRY METHOD 07/30/2024 12:56 PM [facility] Alkaline Phosphatase 80 42 - 121 unit/L LAB CHEMISTRY METHOD 07/30/2024 12:56 PM EST [facility] Blood Venous blood specimen / Unknown Venipuncture / Unknown 07/30/2024 11:52 AM EST 07/30/2024 12:28 PM EST Jonny Mathur MD LAB BLOOD ORDERABLES Final Re sult Performing Organization Address [facility]/ZIP Co de Phone Number [facility] [address] [place] [address], [place] [phone] * (ABNORMAL) Heparin and low molecular weight anti Xa level (07/30/2024 6:10 AM EST) Only the most recent of32 resultswithin the time period is included. Pathologist [facility] Heparin Anti-Xa 1.16(H) 0.30 - 0.70 I Unit/mL LAB COAGULATION METHOD 07/30/2024 6:53 AM EST [facility] Blood Venous blood specimen / Unknown Venipuncture / Unknown 07/30/2024 6:10 AM EST 07/30/2024 6:26 AM EST Narrative [facility] - 07/30/2024 6:53 AM EST Therapeutic range listed is for Unfractionated Heparin. LMW Heparin therapeutic range: 0.50-1.20 IU/mL Jonny Mathur MD LAB BLOOD ORDERABLES Final Re sult Performing Organization Address City/[facility]/ZIP Co de Phone Number [facility] [address] [place] [address], [place] [phone] * Hepatitis B core antibody IgM (07/28/2024 12:19 PM EST) Hep B Core IgM Negative Negative LAB CHEMISTRY METHOD 07/28/2024 3:22 PM EST [facility] Blood Venous blood specimen / Unknown Venipuncture / Unknown 07/28/2024 12:19 PM EST 07/28/2024 12:35 PM EST Narrative [facility] - 07/28/2024 3:22 PM EST Over the counter supplements containing high doses of biotin may interfere with this assay. ??If interference is suspected, patients shoud be retested after refraining from biotin supplements for 72 hours. Miguel Quiles MD LAB BLOOD ORDERABLES Final Res ult Performing Organization Address [facility] Co de Phone Number [facility] [address] [place] [address], * Hepatitis B surface antibody (07/28/2024 12:19 PM EST) Hepatitis B Surface Ab Negative Negative LAB CHEMISTRY METHOD 07/28/2024 1:40 PM EST [facility] Hepatitis B Surface Ab Quantitative <3.1 mIU/mL LAB CHEMISTRY METHOD 07/28/2024 1:40 PM EST [facility] Blood Venous blood specimen / Unknown Venipuncture / Unknown 07/28/2024 12:19 PM EST 07/28/2024 12:35 PM EST Narrative [facility] - 07/28/2024 1:40 PM EST >=10 mIU/mL is considered to be consistent with immunity. us Miguel Quiles MD LAB BLOOD ORDERABLES Final Res ult Performing Organization Address [facility] Co de Phone Number [facility] [address] [place] [address], [place] [phone] * Transfuse RBC (07/23/2024 6:19 PM EST) Only the most recent of3 resultswithin the time period is included. Lencho Stuart MD BLOOD TRANSFUSION ORDERABLES Final Result * Insert Midline (07/23/2024 4:52 PM EST) Narrative Maggy Spencer, RN - 07/23/2024 4:52 PM EST Maggy Spencer RN ? 07/23/2024 ??5:02 PM Midline Insertion Procedure Note Procedure: Insertion of 18g/10cm Bard Powerglide midline Lot: [id number] Exp: 2025-05-28 Indications: ??Difficult draw with frequent [...] Signed Date: 07/22/2024 17:00 ET Workstation ID: [id number] Transcribed By: Self Edit Transcribed Date: 07/22/2024 [...] of fentanyl administered during the procedure. Scanner: [employer] [address] Dose reduction technique: [...] of fentanyl administered during the procedure. Scanner: [employer] [address] Dose reduction technique: [...] Signed Date: 07/22/2024 17:00 ET Workstation ID: [id number] Transcribed By: Self Edit Transcribed Date: 07/22/2024 [...] Tissue exam (07/22/2024 3:13 PM EST) Addendum [facility] Kidney (addendum) This case was sent to [facility], Department of Pathology, [place], [place] (CLIA: [id number]). Their diagnosis is summarized as follows: Pathologic [...] report for full kidney biopsy diagnosis from [facility], [place], [place]) 08/12/2024 10:52 AM [facility] Addendum electronically signed by Mitchell Prince MD on 08/12/2024 at 10:52 AM Final Diagnosis Kidney, left-biopsies for routine, immunofluorescence and electron microscopy: -Submitted in toto to [facility] -See addendum report 08/12/2024 10:52 AM [facility] Gross Description A. Kidney, Left, : Labeled kidney L . Received fresh in saline are 3 perez-pink soft tissue cores, ranging from 0.7 x 0.1 cm to 1.7 x 0.1 cm, which are transfered to formalin for light microscopy, Mick fixative for Immunofluorescence, and Glutaraldehyde for electron microscopy. The specimen is entirely submitted to [facility] for analysis. ELOISE 08/12/2024 10:52 AM [facility] Disclaimer Unless otherwise specified, all tissue is 10% NB formalin fixed and paraffin embedded. 08/12/2024 10:52 AM [facility] Tissue Left kidney structure / Unknown 07/22/2024 3:13 PM EST 07/22/2024 3:39 PM EST us Fela Palomo MD LAB PATHOLOGY ORDERABLES Edited Result - Final Performing Organization Address [facility] Co de Phone Number [facility] [address] [place] [address], [place] [phone] * (ABNORMAL) Prothrombin time with INR (07/22/2024 11:00 AM EST) Only the most recent of3 resultswithin the time period is included. Protime 16.3(H) 10.6 - 13.9 sec LAB COAGULATION METHOD 07/22/2024 1:11 PM [facility] INR 1.3 LAB COAGULATION METHOD 07/22/2024 1:11 PM [facility] Blood Venous blood specimen / Unknown Venipuncture / Unknown 07/22/2024 11:00 AM EST 07/22/2024 11:22 AM EST Lencho Stuart MD LAB BLOOD ORDERABLES Final R esult Performing Organization Address [facility] Co de Phone Number [facility] [address] [place] [address], * SST tube (07/22/2024 10:53 AM EST) Only the most recent of2 resultswithin the time period is included. Extra Tube Hold for add-ons. 07/22/2024 1:01 PM EST [facility] Comment:Auto resulted. Blood Venous blood specimen / Unknown 07/22/2024 10:53 AM EST 07/22/2024 11:25 AM EST Lencho Stuart MD LAB BLOOD ORDERABLES Final R esult Performing Organization Address [facility] Co de Phone Number [facility] [address] [place] [address], * Lavender tube (07/22/2024 10:53 AM EST) Pathologist [facility] Extra Tube Hold for add-ons. 07/22/2024 1:01 PM EST [facility] Comment:Auto resulted. Blood Venous blood specimen / Unknown 07/22/2024 10:53 AM EST 07/22/2024 11:25 AM EST us Lencho Stuart MD LAB BLOOD ORDERABLES Final R [facility] Performing Organization Address [facility] de Phone Number [facility] [address] [place] [address], * Activated Partial Thromboplastin Time - STAT (07/20/2024 2:30 PM EST) Only the most recent of2 resultswithin the time period is included. Pathologist [facility] aPTT 30.0 24.1 - 39.3 sec LAB COAGULATION METHOD 07/20/2024 3:06 PM EST [facility] Blood Venous blood specimen / Unknown Venipuncture / Unknown 07/20/2024 2:30 PM EST 07/20/2024 2:52 PM EST Lencho Stuart MD LAB BLOOD ORDERABLES Final R esult Performing Organization Address [facility] Co de Phone Number [facility] [address] [place] [address], * (ABNORMAL) Microalbumin creatinine urine ratio (07/19/2024 12:01 PM EST) Creatinine, Urine 41.0 mg/dL LAB CHEMISTRY METHOD 07/19/2024 1:46 PM EST [facility] Microalb, Ur 1,480.0(H ) 0.0 - 29.0 mg/L LAB CHEMISTRY METHOD 07/19/2024 1:46 PM EST [facility] Microalb/Crea t Ratio 3,610(H) <30 mg/g creat LAB CHEMISTRY METHOD 07/19/2024 1:46 PM EST [facility] Urine Urine specimen obtained by clean catch procedure / Unknown Non-blood Collection / Unknown 07/19/2024 12:01 PM EST 07/19/2024 12:30 PM EST us Miguel Quiles MD LAB URINE ORDERABLES Final Res ult Performing Organization Address [facility]/ZIP Co de Phone Number [facility] [address] [place] [address], [place] [phone] * Creatinine, urine, random (07/19/2024 12:01 PM EST) Only the most recent of2 resultswithin the time period is included. Creatinine, Urine 41.0 mg/dL LAB CHEMISTRY METHOD 07/19/2024 1:17 PM EST [facility] Urine Urine specimen obtained by clean catch procedure / Unknown Non-blood Collection / Unknown 07/19/2024 12:01 PM EST 07/19/2024 12:30 PM EST us Miguel Quiles MD LAB URINE ORDERABLES Final Res ult Performing Organization Address City/[facility]/ZIP Co de Phone Number [facility] [address] [place] [address], [place] [phone] * (ABNORMAL) Parathyroid hormone related protein (07/19/2024 [...] analytical performance characteristics have been determined by [facility]. It has not been cleared or approved by FDA. This assay has been validated pursuant to the CLIA regulations and is used for clinical purposes. Test Performed at: [facility] [address] [place], [place] ??[phone] ? I Bethany GUERRERO, PhD, NINA Blood Venous blood specimen / Unknown Venipuncture / Unknown 07/19/2024 7:55 AM EST 07/19/2024 7:55 AM EST us Jesus Manuel HEDRICK LAB BLOOD ORDERABLES Final Resu lt [facility] [address] [place] [address] * (ABNORMAL) Anti-neutrophilic cytoplasmic antibody (07/19/2024 6:52 AM EST) Only the most recent of2 resultswithin the time period is included. Myeloperoxidase Ab Negative Negative LAB CHEMISTRY METHOD 07/20/2024 12:10 PM EST [facility] Myeloperoxidase Ab, Quant 1 <=20 units LAB CHEMISTRY METHOD 07/20/2024 12:10 PM EST [facility] Proteinase-3 Ab Positive(A ) Negative LAB CHEMISTRY METHOD 07/20/2024 12:10 PM EST [facility] Proteinase-3 Ab Quant 165(H) <=20 units LAB CHEMISTRY METHOD 07/20/2024 12:10 PM EST [facility] Blood Venous blood specimen / Unknown Venipuncture / Unknown 07/19/2024 6:52 AM EST 07/19/2024 7:21 AM EST us Miguel Quiles MD LAB BLOOD ORDERABLES Final Res ult [facility] [address] [place] [address], [place] [phone] * (ABNORMAL) Urinalysis microscopic only (07/18/2024 6:09 AM EST) RBC, Urine 10(H) 0 - 4 /HPF 07/18/2024 7:53 AM EST [facility] WBC, Urine >100(H) 0 - 4 /HPF 07/18/2024 7:53 AM EST [facility] Squamous Epithelial, Urine 10 0 - 60 /LPF 07/18/2024 7:53 AM EST [facility] Non-Squamous Epithelial, Urine 2-5 Transitional epithelial cells. /LPF 07/18/2024 7:53 AM [facility] Bacteria, Urine Many(A) Negative /HPF 07/18/2024 7:53 AM [facility] Other Casts, Urine Rare Coarse Granular casts. /LPF 07/18/2024 7:53 AM [facility] Urine Indwelling urinary catheter / Unknown Non-blood Collection / Unknown 07/18/2024 6:09 AM EST 07/18/2024 6:36 AM EST us Gian Crum MD LAB URINE ORDERABLES F inal Result [facility] [address] [place] [address], * (ABNORMAL) Calcium, ionized (07/18/2024 6:07 AM EST) Only the most recent of2 resultswithin the time period is included. Calcium Ionized 4.28(L) 4.50 - 5.30 mg/dL 07/18/2024 6:46 AM [facility] Blood Venous blood specimen / Unknown 07/18/2024 6:07 AM EST 07/18/2024 6:33 AM EST us Gian Crum MD LAB BLOOD ORDERABLES F inal Result [facility] [address] [place] [address], [place] [phone] * Vascular US duplex lower extremity venous [...] Signed Date: 07/16/2024 12:33 ET Workstation ID: [id number] Transcribed By: Self Edit Transcribed Date: 07/16/2024 [...] Signed Date: 07/16/2024 12:33 ET Workstation ID: [id number] Transcribed By: Self Edit Transcribed Date: 07/16/2024 12:28 ET Gian Crum MD CV VASCULAR PROCEDURES Final Result * IR Insert Tunneled CVC wo Port or Pump More 5yrs Left (07/15/2024 3:36 PM EST) Anatomical Region Laterality Modality Left Interventional R adiology 07/15/2024 3:45 PM EST Impressions 07/15/2024 3:47 PM EST Successful placement of a 14 Kazakh 23 cm dual-lumen cuffed tunneled dialysis catheter with the tip at the cavoatrial junction. This line may be used immediately. -------- FINAL REPORT -------- Dictated By: Fela Palomo Dictated Date: 07/15/2024 15:45 ET Assigned Physician: Fela Palomo Reviewed and Electronically Signed By: Fela Palomo Signed Date: 07/15/2024 15:47 ET Workstation ID: [id number] Transcribed By: Self Edit Transcribed Date: 07/15/2024 [...] The needle was exchanged for the 4 Kazakh transition sheath. A 0.035 wire was then advanced through ??the sheath and into the inferior vena cava under fluoroscopy. The sheath was then exchanged for a 7 Kazakh vascular dilator. Attention was then turned to the right upper chest and the appropriate area was anesthetized with 2% lidocaine. A small dermatotomy was performed and then a tunnel was created from the dermatotomy to the initial venous access site. The catheter was advanced through the tunnel. ??The initial venous access site was then serially dilated up to a 15 Kazakh peel-away sheath. The catheter was then advanced [...] The needle was exchanged for the 4 Kazakh transition sheath. A 0.035wire was then advanced through the sheath and into the inferior vena cavaunder fluoroscopy. The sheath was then exchanged for a 7 Kazakh vasculardilator. Attention was then turned to the right upper chest and the appropriatearea was anesthetized with 2% lidocaine. A small dermatotomy was performedand then a tunnel was created from the dermatotomy to the initial venousaccess site. The catheter was advanced through the tunnel. The initialvenous access site was then serially dilated up to a 15 Kazakh peel-awaysheath. The catheter was then advanced through [...] mGy IMPRESSION: Successful placement of a 14 Kazakh 23 cm dual-lumen cuffed tunneleddialysis catheter with the tip at the cavoatrial junction. This line maybe used immediately. -------- FINAL REPORT -------- Dictated By: Fela Palomo Dictated Date: 07/15/2024 15:45 ET Assigned Physician: Fela Palomo Reviewed and Electronically Signed By: Fela Palomo Signed Date: 07/15/2024 15:47 ET Workstation ID: [id number] Transcribed By: Self Edit Transcribed Date: 07/15/2024 15:45 ET us Chencho Wayne MD IM IR PROCEDURES Final Result * (ABNORMAL) Renal function panel (07/15/2024 8:56 AM EST) Sodium 132(L) 133 - 145 mmol/L LAB CHEMISTRY METHOD 07/15/2024 10:26 AM [facility] Potassium 3.8 3.5 - 5.5 mmol/L LAB CHEMISTRY METHOD 07/15/2024 10:26 AM [facility] Chloride 104 96 - 110 mmol/L LAB CHEMISTRY METHOD 07/15/2024 10:26 AM [facility] CO2 16(L) 21 - 32 mmol/L LAB CHEMISTRY METHOD 07/15/2024 10:26 AM [facility] Anion Gap 12(H) 3 - 11 LAB CHEMISTRY METHOD 07/15/2024 10:26 AM [facility] Glucose 80 70 - 100 mg/dL LAB CHEMISTRY METHOD 07/15/2024 10:26 AM [facility] BUN 97(H) 5 - 25 mg/dL LAB CHEMISTRY METHOD 07/15/2024 10:26 AM [facility] Creatinine 6.70(H) 0.50 - 1.10 mg/dL LAB CHEMISTRY METHOD 07/15/2024 10:26 AM [facility] eGFR 6(L) >=60 mL/min/1. 73m2 LAB CHEMISTRY METHOD 07/15/2024 10:26 AM [facility] Comment:Calculation based on the??Chronic Kidney Disease Epidemiology Collaboration (CKD-EPI) equation refit??without adjustment for race. BUN/Creatinine Ratio 14.5 LAB CHEMISTRY METHOD 07/15/2024 10:26 AM [facility] Albumin 3.3 3.2 - 5.0 g/dL LAB CHEMISTRY METHOD 07/15/2024 10:26 AM [facility] Comment:Results verified by repeat testing Calcium 8.4(L) 8.5 - 10.5 mg/dL LAB CHEMISTRY METHOD 07/15/2024 10:26 AM [facility] Phosphorus 4.2 2.5 - 4.5 mg/dL LAB CHEMISTRY METHOD 07/15/2024 10:26 AM [facility] Blood Venous blood specimen / Unknown Venipuncture / Unknown 07/15/2024 8:56 AM EST 07/15/2024 9:43 AM EST us Chencho Wayne MD LAB BLOOD ORDERABLES Final Resu lt Performing Organization Address City/[facility]/ZIP Co de Phone Number [facility] [address] [place] [address], [place] [phone] * (ABNORMAL) RBC morphology review (07/15/2024 6:56 AM EST) Pathologist [facility] Rbc Morphology Present( A) Consistent with indices, Normal for LAB HEMETOLOGY METHOD 07/15/2024 8:54 AM EST [facility] Platelet Morphology - WAM See Note(A) Normal LAB HEMETOLOGY METHOD 07/15/2024 8:54 AM EST [facility] Comment:PLT: Normal Polychromasia Present Present( A) (none) LAB HEMETOLOGY METHOD 07/15/2024 8:54 AM EST [facility] Pappenheimer Bodies Present Present( A) (none) LAB HEMETOLOGY METHOD 07/15/2024 8:54 AM EST [facility] Schistocytes Present < 5%(A) (none) LAB HEMETOLOGY METHOD 07/15/2024 8:54 AM EST [facility] Blood Venous blood specimen / Unknown Venipuncture / Unknown 07/15/2024 6:56 AM EST 07/15/2024 7:52 AM EST us Gian Crum MD LAB BLOOD ORDERABLES F inal Result [facility] [address] [place] [address], [place] [phone] * Extractable Nuclear Antibodies Profile (07/14/2024 6:00 AM EST) SM Ab Negative Negative LAB CHEMISTRY METHOD 07/17/2024 12:29 PM EST [facility] SM Antibody Quant 2 <20 units LAB CHEMISTRY METHOD 07/17/2024 12:29 PM EST [facility] TYPESETTER APPRENTICE Ab Negative Negative LAB CHEMISTRY METHOD 07/17/2024 12:29 PM EST [facility] TYPESETTER APPRENTICE Antibody Quant 1 <20 units LAB CHEMISTRY METHOD 07/17/2024 12:29 PM EST [facility] Blood Venous blood specimen / Unknown 07/14/2024 6:00 AM EST 07/14/2024 6:35 AM EST us Gian Crum MD LAB BLOOD ORDERABLES F inal Result Performing Organization Address City/[facility]/ZIP Co de Phone Number [facility] [address] [place] [address], [place] [phone] * (ABNORMAL) C3 complement (07/14/2024 6:00 AM EST) C3 Complement 78(L) 88 - 201 mg/dL LAB CHEMISTRY METHOD 07/14/2024 11:20 AM EST [facility] Blood Venous blood specimen / Unknown 07/14/2024 6:00 AM EST 07/14/2024 6:35 AM EST us Gian Crum MD LAB BLOOD ORDERABLES F inal Result [facility] [address] [place] [address], [place] [phone] * C4 complement (07/14/2024 6:00 AM EST) C4 Complement 18 16 - 47 mg/dL LAB CHEMISTRY METHOD 07/14/2024 11:20 AM EST [facility] Blood Venous blood specimen / Unknown 07/14/2024 6:00 AM EST 07/14/2024 6:35 AM EST us Gian Crum MD LAB BLOOD ORDERABLES F inal Result Performing Organization Address City/[facility]/ZIP Co de Phone Number [facility] [address] [place] [address], [place] [phone] * (ABNORMAL) Sedimentation rate (07/13/2024 6:38 AM EST) Pathologist [facility] Sed Rate 84(H) 0 - 30 mm/hr LAB HEMETOLOGY METHOD 07/13/2024 7:32 AM EST [facility] Blood Venous blood specimen / Unknown Venipuncture / Unknown 07/13/2024 6:38 AM EST 07/13/2024 6:51 AM EST us Gian Crum MD LAB BLOOD ORDERABLES F inal Result Performing Organization Address [facility] Co de Phone Number [facility] [address] [place] [address], [place] [phone] * Uric acid (07/13/2024 6:38 AM EST) Only the most recent of2 resultswithin the time period is included. Pathologist [facility] Uric Acid 7.5 3.1 - 7.8 mg/dL LAB CHEMISTRY METHOD 07/13/2024 7:44 AM EST [facility] Blood Venous blood specimen / Unknown Venipuncture / Unknown 07/13/2024 6:38 AM EST 07/13/2024 6:50 AM EST us Chencho Wayne MD LAB BLOOD ORDERABLES Final Resu lt Performing Organization Address [facility]/ZIP Co de Phone Number [facility] [address] [place] [address], [place] [phone] * (ABNORMAL) Protein and creatinine with ratio, urine (07/12/2024 3:27 PM EST) Protein, Urine 192 mg/dL LAB CHEMISTRY METHOD 07/12/2024 6:44 PM [facility] Prot/Creat, Ur 3.00(H) <=0.20 mg/mg creat LAB CHEMISTRY METHOD 07/12/2024 6:44 PM EST [facility] Creatinine, Urine 64.0 mg/dL LAB CHEMISTRY METHOD 07/12/2024 6:44 PM [facility] Urine Urine specimen obtained by clean catch procedure / Unknown Non-blood Collection / Unknown 07/12/2024 3:27 PM EST 07/12/2024 4:10 PM EST Chencho Wayne MD LAB URINE ORDERABLES Final Resu lt Performing Organization Address City/[facility]/ZIP Co de Phone Number [facility] [address] [place] [address], [place] [phone] * Sodium, urine, random (07/12/2024 3:27 PM EST) Sodium, Ur 34 mmol/L LAB CHEMISTRY METHOD 07/12/2024 6:44 PM [facility] Urine Urine specimen obtained by clean catch procedure / Unknown Non-blood Collection / Unknown 07/12/2024 3:27 PM EST 07/12/2024 4:10 PM EST Aye HEDRICK LAB URINE ORDERABLES Final Re sult [facility] [address] [place] [address], [place] [phone] * Osmolality, urine (07/12/2024 3:27 PM EST) Osmolality, Urine 397 300 - 1,300 mOsm/kg LAB CHEMISTRY METHOD 07/12/2024 5:57 PM EST [facility] Urine Urine specimen obtained by clean catch procedure / Unknown Non-blood Collection / Unknown 07/12/2024 3:27 PM EST 07/12/2024 4:10 PM EST us Aye HEDRICK LAB URINE ORDERABLES Final Re sult [facility] [address] [place] [address], [place] [phone] * CT Chest wo Contrast (07/12/2024 12:48 PM EST) Anatomical Region Laterality Modality Body Computed Tomogra phy 07/12/2024 1:07 PM EST Impressions 07/12/2024 1:19 PM EST Impression: 1. No significant change in an irregular juxtapleural nodular opacity in the right lung apex. Malignancy is not excluded. 2. No developing lymphadenopathy. 3. Small bilateral pleural effusions, new. Starr HEDRICK ([id number]) -------- FINAL REPORT -------- Dictated By: Edilia Durbin Dictated Date: 07/12/2024 13:07 ET Assigned Physician: Edilia Durbin Reviewed and Electronically Signed By: Edilia Durbin Signed Date: 07/12/2024 13:19 ET Workstation ID: [id number] Transcribed By: Self Edit Transcribed Date: 07/12/2024 13:07 ET Narrative 07/12/2024 1:19 PM EST History: Abnormal chest radiograph. The patient underwent nondiagnostic CT- guided biopsy of the right apical lung nodule on 05/23/24. Comparison: Thoracic CT 06/17/24, 03/21/24 Technique: Helical volumetric imaging of the thorax was performed without IV contrast. DLP: 613.10 mGy/cm 1SDK VCT Iterative reconstruction technique Findings: Respiratory motion [...] was performed withoutIV contrast. DLP: 613.10 mGy/cm 1SDK VCT Iterative reconstruction technique Findings: Respiratory motion [...] Small bilateral pleural effusions, new. Teleradha HEDRICK ([id number]) -------- FINAL REPORT -------- Dictated By: Edilia Durbin Dictated Date: 07/12/2024 13:07 ET Assigned Physician: Edilia Durbin Reviewed and Electronically Signed By: Edilia Durbin Signed Date: 07/12/2024 13:19 ET Workstation ID: [id number] Transcribed By: Self Edit Transcribed Date: 07/12/2024 13:07 ET us Gian Crum MD IMG CT PROCEDURES [place] l Result * (ABNORMAL) Procalcitonin (07/12/2024 6:19 AM EST) Procalcitonin 3.11(H) <=0.16 ng/mL LAB CHEMISTRY METHOD 07/12/2024 12:23 PM EST [facility] Blood Venous blood specimen / Unknown Venipuncture / Unknown 07/12/2024 6:19 AM EST 07/12/2024 6:56 AM EST Narrative [facility] - 07/12/2024 12:23 PM [...] MD LAB BLOOD ORDERABLES F inal Result [facility] [address] [place] [address], [place] [phone] * (ABNORMAL) C-reactive protein (07/12/2024 6:19 AM EST) C-Reactive Protein 16.60(H) <=0.50 mg/dL LAB CHEMISTRY METHOD 07/12/2024 10:35 AM EST [facility] Blood Venous blood specimen / Unknown Venipuncture / Unknown 07/12/2024 6:19 AM EST 07/12/2024 6:56 AM EST us Gian Crum MD LAB BLOOD ORDERABLES F inal Result Performing Organization Address [facility]/ZIP Co de Phone Number [facility] [address] [place] [address], [place] [phone] * (ABNORMAL) Lipase (07/12/2024 6:19 AM EST) Only the most recent of2 resultswithin the time period is included. Pathologist [facility] Lipase <10(L) 13 - 75 unit/L LAB CHEMISTRY METHOD 07/12/2024 3:26 PM EST [facility] Blood Venous blood specimen / Unknown Venipuncture / Unknown 07/12/2024 6:19 AM EST 07/12/2024 6:56 AM EST us Gian Crum MD LAB BLOOD ORDERABLES F inal Result Performing Organization Address City/[facility]/ZIP Co de Phone Number [facility] [address] [place] [address], [place] [phone] * Pathologist Review Immunofixation (07/11/2024 6:21 AM EST) Pathologist [facility] Pathologist Interpretation Reviewed by Rosenda Galeana MD 07/13/2024 4:13 PM EST [facility] Blood Venous blood specimen / Unknown Venipuncture / Unknown 07/11/2024 6:21 AM EST 07/11/2024 6:43 AM EST Chencho Wayne MD LAB BLOOD ORDERABLES Final Resu lt [facility] [address] [place] [address], [place] [phone] * Immunofixation electrophoresis serum (07/11/2024 6:21 AM EST) Pathologist [facility] Immunofixation Result, Serum Faint restriction of IgG [place], not observed on SPEP . Follow-up in 6 months if clinically indicated. LAB CHEMISTRY METHOD 07/13/2024 4:13 PM EST [facility] Blood Venous blood specimen / Unknown Venipuncture / Unknown 07/11/2024 6:21 AM EST 07/11/2024 6:43 AM EST us Chencho Wayne MD LAB BLOOD ORDERABLES Final Resu lt [facility] [address] [place] [address], [place] [phone] * Immunoglobulins IgG, IgA, IgM (07/11/2024 6:21 AM EST) Pathologist [facility] Total IgG 1,090 549 - 1,584 mg/dL LAB CHEMISTRY METHOD 07/11/2024 7:29 AM EST [facility] IgA 172 61 - 348 mg/dL LAB CHEMISTRY METHOD 07/11/2024 7:29 AM EST [facility] IgM 38 23 - 259 mg/dL LAB CHEMISTRY METHOD 07/11/2024 7:29 AM EST [facility] Blood Venous blood specimen / Unknown Venipuncture / Unknown 07/11/2024 6:21 AM EST 07/11/2024 6:42 AM EST Chencho Wayne MD LAB BLOOD ORDERABLES Final Resu lt Performing Organization Address [facility]/ZIP Co de Phone Number [facility] [address] [place] [address], [place] [phone] * (ABNORMAL) Triiodothyronine free (07/10/2024 5:16 AM EST) T3, Free 154(L) 230 - 420 pcg/dL LAB CHEMISTRY METHOD 07/10/2024 2:10 PM EST [facility] Blood Venous blood specimen / Unknown Venipuncture / Unknown 07/10/2024 5:16 AM EST 07/10/2024 6:42 AM EST us Maria Alejandra Melendez MD LAB BLOOD ORDERABLES Final Res ult Performing Organization Address [facility] de Phone Number [facility] [address] [place] [address], [place] [phone] * Thyroxine free (07/10/2024 5:16 AM EST) Free T4 0.92 0.70 - 1.80 ng/dL LAB CHEMISTRY METHOD 07/10/2024 2:04 PM EST [facility] Blood Venous blood specimen / Unknown Venipuncture / Unknown 07/10/2024 5:16 AM EST 07/10/2024 6:42 AM EST Maria Alejandra Melendez MD LAB BLOOD ORDERABLES Final Res ult Performing Organization Address City/[facility]/ZIP Co de Phone Number [facility] [address] [place] [address], [place] [phone] * (ABNORMAL) Parathyroid hormone intact (07/10/2024 5:16 AM EST) Only the most recent of2 resultswithin the time period is included. Pathologist [facility] PTH 10.5(L) 18.5 - 88.0 pcg/mL LAB CHEMISTRY METHOD 07/10/2024 1:47 PM EST [facility] Blood Venous blood specimen / Unknown Venipuncture / Unknown 07/10/2024 5:16 AM EST 07/10/2024 6:42 AM EST us Maria Alejandra Melendez MD LAB BLOOD ORDERABLES Final Res ult [facility] [address] [place] [address], * Creatine kinase (07/09/2024 6:25 AM EST) [facility] Total CK 172 22 - 269 unit/L LAB CHEMISTRY METHOD 07/09/2024 8:11 AM EST [facility] Blood Venous blood specimen / Unknown Venipuncture / Unknown 07/09/2024 6:25 AM EST 07/09/2024 7:11 AM EST us Aye HEDRICK LAB BLOOD ORDERABLES Final Re sult [facility] [address] [place] [address], [place] [phone] * Green LI heparin tube (07/08/2024 9:50 PM EST) [facility] Extra Tube Hold for add-ons. 07/09/2024 12:01 AM EST [facility] Comment:Auto resulted. Blood Venous blood specimen / Unknown 07/08/2024 9:50 PM EST 07/08/2024 10:41 PM EST Wayne Donahue MD LAB BLOOD ORDERABLES Final Re sult Performing Organization Address [facility] Co de Phone Number [facility] [address] [place] [address], [place] [phone] * Culture blood (07/08/2024 9:49 PM EST) Only the most recent of2 resultswithin the time period is included. Culture, Blood No growth at 5 days 07/13/2024 10:01 PM EST [facility] Blood Venous blood specimen / Unknown Venipuncture / Unknown 07/08/2024 9:49 PM EST 07/08/2024 9:54 PM EST Aye HEDRICK LAB MICROBIOLOGY - GENERAL OR DERABLES Final Result Performing Organization Address [facility] Co de Phone Number [facility] [address] [place] [address], * Lactate (07/08/2024 9:42 PM EST) [facility] Lactate 1.3 mmol/L 07/08/2024 10:30 PM EST [facility] Blood Venous blood specimen / Unknown Venipuncture / Unknown 07/08/2024 9:42 PM EST 07/08/2024 9:54 PM EST Aye HEDRICK LAB BLOOD ORDERABLES Final Re sult Performing Organization Address [facility] Co de Phone Number [facility] [address] [place] [address], [place] [phone] * (ABNORMAL) Electrolyte panel (07/08/2024 8:30 PM EST) Only the most recent of2 resultswithin the time period is included. Sodium 130(L) 133 - 145 mmol/L LAB CHEMISTRY METHOD 07/08/2024 11:37 PM EST [facility] Potassium 4.0 3.5 - 5.5 mmol/L LAB CHEMISTRY METHOD 07/08/2024 11:37 PM EST [facility] Chloride 98 96 - 110 mmol/L LAB CHEMISTRY METHOD 07/08/2024 11:37 PM [facility] CO2 22 21 - 32 mmol/L LAB CHEMISTRY METHOD 07/08/2024 11:37 PM [facility] Anion Gap 10 3 - 11 LAB CHEMISTRY METHOD 07/08/2024 11:37 PM [facility] Blood Venous blood specimen / Unknown Venipuncture / Unknown 07/08/2024 8:30 PM EST 07/08/2024 8:37 PM EST us Aye HEDRICK LAB BLOOD ORDERABLES Final Re sult Performing Organization Address City/[facility]/ZIP Co de Phone Number [facility] [address] [place] [address], [place] [phone] * PATHOLOGIST REVIEW PROTEIN ELECTROPHORESIS (07/08/2024 5:52 PM EST) Pathologist [facility] Pathologist Interpretation Reviewed by Rosenda Galeana MD 07/14/2024 9:21 AM EST [facility] Blood Venous blood specimen / Unknown Venipuncture / Unknown 07/08/2024 5:52 PM EST 07/08/2024 6:00 PM EST Aye HEDRICK LAB BLOOD ORDERABLES Final Re sult [facility] [address] [place] [address], [place] [phone] * (ABNORMAL) Protein electrophoresis, serum (07/08/2024 5:52 PM EST) Total Protein 6.4 6.0 - 8.0 g/dL LAB CHEMISTRY METHOD 07/14/2024 9:21 AM [facility] Albumin, Serum 2.2(L) 2.9 - 4.1 g/dL LAB CHEMISTRY METHOD 07/14/2024 9:21 AM [facility] Alpha 1 Globulin (g/dL) 0.6(H) 0.1 - 0.5 g/dL LAB CHEMISTRY METHOD 07/14/2024 9:21 AM [facility] Alpha 2 Globulin (g/dL) 1.2 0.7 - 1.5 g/dL LAB CHEMISTRY METHOD 07/14/2024 9:21 AM [facility] Beta (g/dL) 1.0 0.7 - 1.5 g/dL LAB CHEMISTRY METHOD 07/14/2024 9:21 AM [facility] Gamma Globulin (g/dL) 1.5 0.7 - 1.9 g/dL LAB CHEMISTRY METHOD 07/14/2024 9:21 AM [facility] SPEP Interpretation Hypoalbuminem ia, suggestive of malnutrition, decreased hepatic synthesis or renal/GI loss Elevated alpha-1 fraction, suggestive of acute or or chronic inflammation. LAB CHEMISTRY METHOD 07/14/2024 9:21 AM [facility] Blood Venous blood specimen / Unknown Venipuncture / Unknown 07/08/2024 5:52 PM EST 07/08/2024 6:00 PM EST us Aye HEDRICK LAB BLOOD ORDERABLES Final Re sult [facility] [address] [place] [address], * Protein, total (07/08/2024 5:52 PM EST) Total Protein 6.4 6.0 - 8.0 g/dL LAB CHEMISTRY METHOD 07/08/2024 6:30 PM [facility] Blood Venous blood specimen / Unknown Venipuncture / Unknown 07/08/2024 5:52 PM EST 07/08/2024 6:00 PM EST Aye HEDRICK LAB BLOOD ORDERABLES Final Re sult Performing Organization Address [facility]/ZIP Co de Phone Number [facility] [address] [place] [address], [place] [phone] * (ABNORMAL) Serum albumin (07/08/2024 5:52 PM EST) [facility] Albumin 2.1(L) 3.2 - 5.0 g/dL LAB CHEMISTRY METHOD 07/08/2024 6:34 PM EST [facility] Blood Venous blood specimen / Unknown Venipuncture / Unknown 07/08/2024 5:52 PM EST 07/08/2024 6:00 PM EST Aye Earl Monzon [place] LAB BLOOD ORDERABLES Final Re sult Performing Organization Address [facility]/ZIP Co de Phone Number [facility] [address] [place] [address], [place] [phone] * US Retroperitoneal Complete (07/08/2024 4:30 PM EST) Anatomical Region Laterality Modality Body Ultrasound 07/10/2024 2:07 PM EST Impressions 07/10/2024 2:08 PM EST Normal appearance of the kidneys. -------- FINAL REPORT -------- Dictated By: Primo Dee Dictated Date: 07/10/2024 14:07 ET Assigned Physician: Primo Dee Reviewed and Electronically Signed By: Primo Dee Signed Date: 07/10/2024 14:08 ET Workstation ID: [id number] Transcribed By: Self Edit Transcribed Date: 07/10/2024 [...] Signed Date: 07/10/2024 14:08 ET Workstation ID: [id number] Transcribed By: Self Edit Transcribed Date: 07/10/2024 14:07 ET us Aye HEDRICK IMG US PROCEDURES Final Resul t * Respiratory virus panel molecular study (07/08/2024 2:59 PM EST) Adenovirus Detection by PCR Not Detected Not Detected LAB MICROBIOLOGY METHOD 07/08/2024 4:18 PM EST [facility] Influenza A PCR Not Detected Not Detected LAB MICROBIOLOGY METHOD 07/08/2024 4:18 PM EST [facility] Influenza B PCR Not Detected Not Detected LAB MICROBIOLOGY METHOD 07/08/2024 4:18 PM EST [facility] Coronavirus 229E Not Detected Not Detected LAB MICROBIOLOGY METHOD 07/08/2024 4:18 PM EST [facility] Coronavirus HKU1 Not Detected Not Detected LAB MICROBIOLOGY METHOD 07/08/2024 4:18 PM [facility] Coronavirus OC43 Not Detected Not Detected LAB MICROBIOLOGY METHOD 07/08/2024 4:18 PM [facility] Coronavirus NL63 Not Detected Not Detected LAB MICROBIOLOGY METHOD 07/08/2024 4:18 PM [facility] Parainfluenza Virus 1 Not Detected Not Detected LAB MICROBIOLOGY METHOD 07/08/2024 4:18 PM [facility] Parainfluenza Virus 2 Not Detected Not Detected LAB MICROBIOLOGY METHOD 07/08/2024 4:18 PM [facility] Parainfluenza Virus 3 Not Detected Not Detected LAB MICROBIOLOGY METHOD 07/08/2024 4:18 PM [facility] Parainfluenza Virus 4 Not Detected Not Detected LAB MICROBIOLOGY METHOD 07/08/2024 4:18 PM [facility] RSV PCR Not Detected Not Detected LAB MICROBIOLOGY METHOD 07/08/2024 4:18 PM [facility] Human Metapneumovirus A and B Not Detected Not Detected LAB MICROBIOLOGY METHOD 07/08/2024 4:18 PM [facility] Rhinovirus/Entero virus Not Detected Not Detected LAB MICROBIOLOGY METHOD 07/08/2024 4:18 PM [facility] Bordetella pertussis Not Detected Not Detected LAB MICROBIOLOGY METHOD 07/08/2024 4:18 PM [facility] Bordetella parapertussis Not Detected Not Detected LAB MICROBIOLOGY METHOD 07/08/2024 4:18 PM [facility] Mycoplasma pneumo by PCR Not Detected Not Detected LAB MICROBIOLOGY METHOD 07/08/2024 4:18 PM [facility] Chlamydia pneumoniae Not Detected Not Detected LAB MICROBIOLOGY METHOD 07/08/2024 4:18 PM [facility] SARS COV-2 Not Detected Not Detected LAB MICROBIOLOGY METHOD 07/08/2024 4:18 PM [facility] Swab Both anterior nares / Unknown Non-blood Collection / Unknown 07/08/2024 2:59 PM EST 07/08/2024 3:15 PM EST Narrative [facility] - 07/08/2024 4:18 PM EST Testing was performed using the Dep-Xplora Respiratory Pathogen PCR Assay. All results must [...] MICROBIOLOGY - GENERAL OR DERABLES Final Result [facility] [address] [place] [address], * XR Chest 2 Views (07/08/2024 2:01 PM EST) Anatomical Region Laterality Modality Body Radiographic Jennifer ging 07/08/2024 2:06 PM EST Impressions 07/08/2024 2:07 PM EST No acute findings. -------- FINAL REPORT -------- Dictated By: Henrique Bray Dictated Date: 07/08/2024 14:06 ET Assigned Physician: Henrique Bray Reviewed and Electronically Signed By: Henrique Bray Signed Date: 07/08/2024 14:07 ET Workstation ID: [id number] Transcribed By: Self Edit Transcribed Date: 07/08/2024 [...] Signed Date: 07/08/2024 14:07 ET Workstation ID: [id number] Transcribed By: Self Edit Transcribed Date: 07/08/2024 14:06 ET Jj Wolfe MD IMG XR PROCEDURES Final R esult * (ABNORMAL) Iron and TIBC (07/08/2024 11:10 AM EST) Iron 20(L) 40 - 150 mcg/dL LAB CHEMISTRY METHOD 07/08/2024 3:44 PM EST [facility] Comment:Hemolysis present TIBC 186(L) 250 - 450 mcg/dL LAB CHEMISTRY METHOD 07/08/2024 3:44 PM EST [facility] Iron Saturation 11(L) 15 - 50 % LAB CHEMISTRY METHOD 07/08/2024 3:44 PM EST [facility] Blood Venous blood specimen / Unknown Venipuncture / Unknown 07/08/2024 11:10 AM EST 07/08/2024 11:42 AM EST Wayne Donahue MD LAB BLOOD ORDERABLES Final Re sult [facility] [address] [place] [address], [place] [phone] * (ABNORMAL) Reticulocyte count (07/08/2024 11:10 AM EST) Retic Ct Abs 0.050 0.030 - 0.090 M/mcL LAB HEMETOLOGY METHOD 07/08/2024 2:52 PM [facility] Retic Ct Pct 1.4 0.7 - 1.7 % LAB HEMETOLOGY METHOD 07/08/2024 2:52 PM [facility] Immature Retic Fract 24.5(H) 2.3 - 15.9 % LAB HEMETOLOGY METHOD 07/08/2024 2:52 PM EST [facility] Reticulocyte Hemoglobin 22.5(L) >29.0 pcg LAB HEMETOLOGY METHOD 07/08/2024 2:52 PM [facility] Blood Venous blood specimen / Unknown Venipuncture / Unknown 07/08/2024 11:10 AM EST 07/08/2024 11:42 AM EST us Wayne Donahue MD LAB BLOOD ORDERABLES Final Re sult Performing Organization Address City/[facility]/ZIP Co de Phone Number [facility] [address] [place] [address], [place] [phone] * (ABNORMAL) Thyroid stimulating hormone (07/08/2024 11:10 AM EST) TSH 4.50(H) 0.40 - 4.00 mcIU/mL LAB CHEMISTRY METHOD 07/08/2024 3:31 PM EST [facility] Blood Venous blood specimen / Unknown Venipuncture / Unknown 07/08/2024 11:10 AM EST 07/08/2024 11:42 AM EST us Wayne Donahue MD LAB BLOOD ORDERABLES Final Re sult [facility] [address] [place] [address], [place] [phone] * (ABNORMAL) Osmolality (07/08/2024 11:10 AM EST) Osmolality Iván 307(H) 280 - 300 mOsm/kg LAB CHEMISTRY METHOD 07/08/2024 6:51 PM EST [facility] Blood Venous blood specimen / Unknown Venipuncture / Unknown 07/08/2024 11:10 AM EST 07/08/2024 11:42 AM EST Wayne Donahue MD LAB BLOOD ORDERABLES Final Re sult Performing Organization Address City/[facility]/ZIP Co de Phone Number [facility] [address] [place] [address], [place] [phone] * B-type natriuretic peptide (07/08/2024 11:10 AM EST) BNP 86 <=100 pcg/mL LAB CHEMISTRY METHOD 07/08/2024 12:26 PM EST [facility] Blood Venous blood specimen / Unknown Venipuncture / Unknown 07/08/2024 11:10 AM EST 07/08/2024 11:42 AM EST Jj Wolfe MD LAB BLOOD ORDERABLES [place] l Result Performing Organization Address City/[facility]/ZIP Co de Phone Number [facility] [address] [place] [address], [place] [phone] * (ABNORMAL) Haptoglobin (07/08/2024 11:10 AM EST) Haptoglobin 570(H) 16 - 200 mg/dL LAB CHEMISTRY METHOD 07/08/2024 3:44 PM EST [facility] Blood Venous blood specimen / Unknown Venipuncture / Unknown 07/08/2024 11:10 AM EST 07/08/2024 11:42 AM EST us Wayne Donahue MD LAB BLOOD ORDERABLES Final Re sult Performing Organization Address [facility]/ZIP Co de Phone Number [facility] [address] [place] [address], * (ABNORMAL) Folate (07/08/2024 11:10 AM EST) [facility] Folate >20.0(H) 2.8 - 17.0 ng/ml LAB CHEMISTRY METHOD 07/08/2024 3:51 PM EST [facility] Blood Venous blood specimen / Unknown Venipuncture / Unknown 07/08/2024 11:10 AM EST 07/08/2024 11:42 AM EST us Wayne Donahue MD LAB BLOOD ORDERABLES Final Re sult Performing Organization Address [facility]/ZIP Co de Phone Number [facility] [address] [place] [address], * (ABNORMAL) Ferritin (07/08/2024 11:10 AM EST) [facility] Ferritin 708(H) 8 - 252 ng/mL LAB CHEMISTRY METHOD 07/08/2024 3:51 PM EST [facility] Blood Venous blood specimen / Unknown Venipuncture / Unknown 07/08/2024 11:10 AM EST 07/08/2024 11:42 AM EST us Wayne Donahue MD LAB BLOOD ORDERABLES Final Re sult [facility] [address] [place] [address], [place] [phone] * Vitamin B12 (07/08/2024 11:10 AM EST) [facility] Vitamin B-12 384 250 - 900 pcg/mL LAB CHEMISTRY METHOD 07/08/2024 3:51 PM EST [facility] Blood Venous blood specimen / Unknown Venipuncture / Unknown 07/08/2024 11:10 AM EST 07/08/2024 11:42 AM EST us Wayne Donahue MD LAB BLOOD ORDERABLES Final Re sult Performing Organization Address City/[facility]/ZIP Co de Phone Number [facility] [address] [place] [address], [place] [phone] * (ABNORMAL) Creatine kinase and CKMB (07/08/2024 11:10 AM EST) Total CK 649(H) 22 - 269 unit/L LAB CHEMISTRY METHOD 07/08/2024 3:51 PM EST [facility] Comment:Hemolysis present CK-MB 13.1(H) 1.0 - 3.6 ng/mL LAB CHEMISTRY METHOD 07/08/2024 3:51 PM EST [facility] CK-MB Index 0.0 0.0 - 5.0 LAB CHEMISTRY METHOD 07/08/2024 3:51 PM EST [facility] Blood Venous blood specimen / Unknown Venipuncture / Unknown 07/08/2024 11:10 AM EST 07/08/2024 11:42 AM EST us Wayne Donahue MD LAB BLOOD ORDERABLES Final Re sult Performing Organization Address City/[facility]/ZIP Co de Phone Number [facility] [address] [place] [address], [place] [phone] * Cortisol (07/08/2024 11:10 AM EST) Cortisol 58.1 mcg/dL LAB CHEMISTRY METHOD 07/08/2024 3:38 PM EST [facility] Blood Venous blood specimen / Unknown Venipuncture / Unknown 07/08/2024 11:10 AM EST 07/08/2024 11:42 AM EST Narrative [facility] - 07/08/2024 3:38 PM EST CORTISOL REFERENCE RANGE ?? 8 AM SPEC: ??5.0-23.0 mcg/dL ?? 4 PM SPEC: ??3.0-16.0 mcg/dL ?? 8 PM SPEC: ??<5.0 mcg/dL us Wayne Donahue MD LAB BLOOD ORDERABLES Final Re sult [facility] [address] [place] [address], [place] [phone] * (ABNORMAL) Comprehensive metabolic panel (07/08/2024 11:10 AM EST) Sodium 126(L) 133 - 145 mmol/L LAB CHEMISTRY METHOD 07/08/2024 12:54 PM [facility] Potassium 4.2 3.5 - 5.5 mmol/L LAB CHEMISTRY METHOD 07/08/2024 12:54 PM [facility] Comment:Hemolysis present Chloride 93(L) 96 - 110 mmol/L LAB CHEMISTRY METHOD 07/08/2024 12:54 PM [facility] CO2 21 21 - 32 mmol/L LAB CHEMISTRY METHOD 07/08/2024 12:54 PM [facility] Anion Gap 12(H) 3 - 11 LAB CHEMISTRY METHOD 07/08/2024 12:54 PM [facility] Glucose 265(H) 70 - 100 mg/dL LAB CHEMISTRY METHOD 07/08/2024 12:54 PM [facility] BUN 59(H) 5 - 25 mg/dL LAB CHEMISTRY METHOD 07/08/2024 12:54 PM [facility] Comment:Results verified by repeat testing Creatinine 4.10(H) 0.50 - 1.10 mg/dL LAB CHEMISTRY METHOD 07/08/2024 12:54 PM [facility] Comment:Results verified by repeat testing eGFR 10(L) >=60 mL/min/1. 73m2 LAB CHEMISTRY METHOD 07/08/2024 12:54 PM [facility] Comment:Calculation based on the??Chronic Kidney Disease Epidemiology Collaboration (CKD-EPI) equation refit??without adjustment for race. BUN/Creatinine Ratio 14.4 LAB CHEMISTRY METHOD 07/08/2024 12:54 PM [facility] Calcium 10.6(H) 8.5 - 10.5 mg/dL LAB CHEMISTRY METHOD 07/08/2024 12:54 PM [facility] AST (SGOT) 57(H) 10 - 42 unit/L LAB CHEMISTRY METHOD 07/08/2024 12:54 PM [facility] Comment:Hemolysis present ALT (SGPT) 39 10 - 60 unit/L LAB CHEMISTRY METHOD 07/08/2024 12:54 PM [facility] Alkaline Phosphatase 149(H) 42 - 121 unit/L LAB CHEMISTRY METHOD 07/08/2024 12:54 PM [facility] Total Protein 6.3 6.0 - 8.0 g/dL LAB CHEMISTRY METHOD 07/08/2024 12:54 PM [facility] Albumin 2.1(L) 3.2 - 5.0 g/dL LAB CHEMISTRY METHOD 07/08/2024 12:54 PM [facility] Total Bilirubin 0.4 0.0 - 1.4 mg/dL LAB CHEMISTRY METHOD 07/08/2024 12:54 PM [facility] Blood Venous blood specimen / Unknown Venipuncture / Unknown 07/08/2024 11:10 AM EST 07/08/2024 11:42 AM EST us Jj Wolfe MD LAB BLOOD ORDERABLES America l Result [facility] [address] [place] [address], [place] [phone] * ECG-Outside (07/08/2024) us Provider Onbase ECG ORDERABLES Final Result * Lipid panel with reflex to direct LDL (05/31/2024 9:22 AM EST) Cholesterol 131 0 - 200 mg/dL LAB CHEMISTRY METHOD 05/31/2024 12:51 PM EST [facility] Triglycerides 113 0 - 150 mg/dL LAB CHEMISTRY METHOD 05/31/2024 12:51 PM EST [facility] HDL 60 >=40 mg/dL LAB CHEMISTRY METHOD 05/31/2024 12:51 PM EST [facility] LDL Calculated 48 0 - 100 mg/dL LAB CHEMISTRY METHOD 05/31/2024 12:51 PM [facility] VLDL Cholesterol Hunter 22.6 mg/dL LAB CHEMISTRY METHOD 05/31/2024 12:51 PM [facility] Non HDL Chol. (LDL+VLDL) 71 <145 mg/dL LAB CHEMISTRY METHOD 05/31/2024 12:51 PM [facility] Chol/HDL Ratio 2.2 0.0 - 4.4 LAB CHEMISTRY METHOD 05/31/2024 12:51 PM [facility] Blood Venous blood specimen / Unknown Venipuncture / Unknown 05/31/2024 9:22 AM EST 05/31/2024 9:22 AM EST us Kayleigh Pedraza NP LAB BLOOD ORDERABLES Final Resul t [facility] [address] [place] [address], * JODY DEXA AXIAL SKELETON (04/15/2018 10:29 AM EDT) Anatomical Region Laterality Modality Mammography 04/15/2018 9:39 AM EDT Narrative 04/15/2018 10:29 AM EDT [facility] Diagnostic Imaging Department [address] [place] [address] Patient: ??CONTRERAS,ANA A ?/Age/Sex: 1945 - 73 - F Unit#: ??[id number] ? Location/Status: ??SPDIMAM/REG CLI ? Mnemonic/Ordering Site: ??MAMDEXAAX/SPMAM Ordering Physician: ??JOSE SANTIZO MD [facility] Dexa Axial Skeleton - 04/15/18 - [...] probability of hip fracture of 2.2%. Code 14551 Dictating Physician: ??JAILYN BARAHONA MD Electronically Signed by: ??JAILYN BARAHONA MD Dic Date/Time: ??04/15/18 1028 Sign date/Time: ??04/15/18 1029 Procedure Note Jailyn Barahona MD - 06/17/2022 [facility] Diagnostic Imaging Department [address] [place] [address] Patient: RICHIE CONTRERASNCHE Krysta /Age/Sex: 1945 - 73 - F Unit#: [id number] Location/Status: [facility] Mnemonic/Ordering Site: [facility] Ordering Physician: JOSE SANTIZO MD [facility] Dexa Axial Skeleton - 04/15/181003 HISTORY: The patient is a 73-year-old postmenopausal [...] density of the femurs bilaterally is 0.854 gm/td3efeht is 85% of that of young normals [...] probability of hip fracture of 2.2%. Code 95043 Dictating Physician: JAILYN BARAHONA MD Electronically Signed by: JAILYN BARAHONA MD Dic Date/Time: 04/15/18 1028 Sign date/Time: 04/15/18 1029 Jose Santizo MD IMG BI PROCEDURES Final Result from Last 3 Months or Most Recently Relevant to Health Maintenance Insurance [employer] MEDICARE Advance Directives Documents on File Type Date Recorded Patient Station Cook Expl anation Advance Directives and Living Will 09/13/2024 4:40 PM [facility] Advance Directives and Living Will 07/08/2024 3:58 [...] Second Alternate Health Care Agent Care Teams Heating And Ventilating Tender Relationship Specialty Start Date End Date Eloisa Vázquez DO [facility] [place] [address] PCP - General 04/12/24
--- OUTSIDE RECORDS SUMMARY | 2024-10-03 05:54 | XMS_ITS | Encounter Summary ---
Author Organization [facility] Address [address] [address] Phone Care Team Providers Care Manager Field Investigations Name Role Phone Eloisa Vázquez Primary Care Provider [phone] Encounter Details Date Type Department Care Team (Late st Contact Info) Description 09/30/2024 Treatment [facility] [address] [address] Bnoi Pierce MD [address] [address] Social History Tobacco Use Types Packs/Day Years Used Date Smoking Tobacco: Never Assessed Comments Unknown Sex and Gender Information Value Date Recorded Sex Assigned at Not on file Legal Sex Female 10:11 AM EST Gender Identity Not on file Sexual Orientation Not on file documented as of this encounter Miscellaneous Notes * Dialysis Note - Boni Pierce MD - 09/30/2024 12:00 AM EDT Patient: Ana Contreras : 1945 Note Type: Dialysis Rounds-CLAUDIA Service Date: 09/30/2024 This patient was personally seen during dialysis for the management of acute kidney injury requiring renal replacement therapy. Attending Cigar Machine Feeder: BONI PIERCE Dialysis Location: [facility] Schedule: Shift: 1 ADEQUACY ASSESSMENT Kt/V, Natural Log 1.54 (09/02/24) 1.63 (08/08/24) UREA REDUCTION RATIO (%) 73 (09/02/24) 77 (08/08/24) BUN 61 (09/26/24) 55 (09/19/24) 69 (09/16/24) BUN Post Dialysis 13 (09/02/24) 14 (08/08/24) Creatinine 3.33 (09/26/24) 3.27 (09/19/24) 3.78 (09/16/24) Bicarbonate (CO2) 24 (09/26/24) 26 (09/19/24) 20 (09/16/24) Sodium 138 (09/26/24) 139 (09/19/24) 136 (09/16/24) Urine Volume 900 (09/16/24) 300 (09/02/24) 300 (08/17/24) Creatinine renal clearance 6.4 (09/16/24) 2.0 (09/02/24) 1.3 (08/17/24) ANEMIA ASSESSMENT Hgb 8.9 (09/26/24) 8.6 (09/16/24) 8.0 (09/02/24) Iron Saturation (TSat) 26 (09/02/24) 19 (08/08/24) Ferritin 1,612 (09/02/24) 1,209 (08/08/24) Iron 43 (09/02/24) 34 (08/08/24) TIBC 167 (09/02/24) 176 (08/08/24) MCV 91.5 (09/02/24) 87.0 (08/08/24) Platelets 178 (09/02/24) 181 (08/08/24) BMM ASSESSMENT Calcium 8.3 09/26/24 8.0 09/19/24 8.2 09/16/24 Calcium, Adjusted Total 8.9 09/02/24 9.4 08/08/24 Phosphorus, Serum 3.8 09/16/24 2.7 09/02/24 4.4 08/08/24 Ca*PO4 22.4 09/02/24 38.7 08/08/24 PTH, Intact 144 08/08/24 Vitamin D, 25-Hydroxy 38 08/08/24 Magnesium 1.9 09/02/24 1.9 08/08/24 Alkaline Phosphatase 69 09/02/24 76 08/08/24 Aluminum 4 08/08/24 NUTRITION ASSESSMENT Albumin 3.2 09/02/24 3.2 08/08/24 Potassium 4.4 09/26/24 4.5 09/19/24 4.3 09/16/24 Hemoglobin A1C 6.3 08/08/24 ADDITIONAL LABS White Blood Cells 6.2 (09/02/24) 8.5 (08/08/24) Cholesterol 170 (08/08/24) HDL 60 (08/08/24) LDL-Calc 80 (08/08/24) Triglycerides 149 (08/08/24) Hep B Surface Antibody <4 (08/08/24) Uric Acid 5.0 (08/08/24) ADDITIONAL COMMENT COMMENTS: 08/08/24 Getting rec from [facility] 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 08/17/24 closely monitoring for recovery 08/26/24 s/p rituxin infusion 09/02/24 track Scr and reoeat 24 hr urune ordered to look for renal recivert 09/12/24 stable, needs weekly Scr and 24 hr urine 09/19/24 cont hd for now but track for renal Recovery 09/23/24 cont to track closley for recovery 09/30/24 repeat 24 hr urine scheduled 07/28/24 Need to Rrange 2 nd dose for 08/12 Watch for renal recovery Signed by: BONI PIERCE MD on 09/30/2024 at 05:49:55 PM Transcribed by: BONI PIERCE MD on 09/30/2024 at 05:49:55 PM documented in this encounter Plan of Treatment Not on file documented as of this encounter Visit Diagnoses Not on filedocumented in this encounter Care Teams Manager Field Investigations Relationship Specialty Start Date End Date Eloisa Vázquez [address] [place] [address] PCP - General Internal Medicine 07/11/24 documented as of this encounter
--- OUTSIDE RECORDS SUMMARY | 2024-10-03 05:54 | XMS_ITS | Clinical Summary ---
Author Organization [facility] Address [address] [place] [address] Care Team Providers Care Block Sorter Name Role Phone GurpreetEloisa Primary Care Provider [phone] Allergies No known active allergies Medications Medication [...] age to complete this topic Care Teams Block Sorter Relationship Specialty Start Date End Date Eloisa Vázquez DO [address] [place] [address] PCP - General Internal Medicine 04/07/24
[2024-10-03 06:41] LABS: Basophils Percent Auto 0.2 % (0-2); Hematocrit 25.1 % (37.0-47.0); Hemoglobin 8.6 g/dl (12.0-16.0); Imm Gran Abs Auto 0.03 X10*3/uL (0.00-0.03); Imm Gran Pct Auto 0.6 % (0.0-0.4); Lymphocytes Absolute Auto 0.5 X10*3/uL (1.2-4.9); Lymphocytes Percent Auto 9.3 % (20-40); Mean Corpuscular HGB Conc 34.3 g/dl (31.0-35.0); Mean Corpuscular Hemoglobin 32.2 pg (27.0-33.0); Mean Platelet Volume 10.5 fL (9.4-12.3); Monocytes Absolute Auto 0.3 X10*3/uL (0.1-1.2); Monocytes Percent Auto 5.6 % (2-11); Neutrophils Absolute Auto 4.1 x10*3/uL (2.0-8.3); Neutrophils Percent Auto 84.3 % (45-73); Platelet Count 129 X10*3/uL (160-400); Red Blood Count 2.67 X10*6/uL (4.20-5.50); Red Cell Distribution Width 18.2 % (11.0-16.0); White Blood Count 4.9 X10*3/uL (4.8-10.8)
[2024-10-03 06:47] LABS: Anion Gap 14 (12-20); Blood Urea Nitrogen 64 mg/dL (9-16); Calcium 7.8 mg/dL (8.4-10.2); Carbon Dioxide 21 mmol/L (22-29); Chloride 104 mmol/L (96-108); Estimated Glomerular Filt Rate 15; Glucose Random 100 mg/dL (60-115); Potassium 4.4 mmol/L (3.3-5.1); Sodium 135 mmol/L (135-145)
== END 2024-10-03 05:47 | disposition home or self-care (01) ==
LOC: HO.MMNH1L 05:46
PROVIDERS: Visit Provider Family Medicine
DX: E11.9 Type 2 diabetes mellitus without complications (principal)
CPT/HCPCS: 36415; 80048; 85025

== ENCOUNTER 2024-10-10 05:43 | Outpatient (REF) | payer MEDICARE, SELFPAY ==
[2024-10-10 05:39] LABS: MANUAL DIFF FLAG NO
--- OUTSIDE RECORDS SUMMARY | 2024-10-10 05:50 | XMS_ITS | Clinical Summary ---
Author Organization [facility] Address [address] [place] [address] Care Team Providers Care Cotton Picker Operator Name Role Phone GurpreetEloisa Primary Care Provider [phone] Allergies No known active allergies Medications Medication [...] age to complete this topic Care Teams Cotton Picker Operator Relationship Specialty Start Date End Date Eloisa Vázquez DO [address] [place] [address] PCP - General Internal Medicine 04/07/24
--- OUTSIDE RECORDS SUMMARY | 2024-10-10 05:50 | XMS_ITS | Encounter Summary ---
Author Organization [facility] Address [address] [place] [address] Care Team Providers Care Founder And Chief Executive Officer Name Role Phone Marie Vázquezmankamryn CHERY Primary Care Provider Encounter Details Date Type Department Care Team (Late st Contact Info) Description 04/12/2024 1:41 PM EDT Hospital Encounter TH HISTORIC ENCOUNTERS EASTERN CONVERSION ONLY Jaime Grimaldo MD [address] [place] [id number] Social History Tobacco Use Types Packs/Day Years [...] 10/17/2024 1:20 PM EDT Telemedicine Endocrinology - [place] [address] [place] [phone] Kathy Michelle PA [address] [place] [address] 11/11/2024 11:00 AM EDT Ancillary Procedure [facility] - [address] [place] [address] 11/14/2024 11:30 AM EDT Appointment [facility] CT Scan [address] [place] [phone] 11/18/2024 2:15 PM EDT Office Visit Internal Medicine - [facility] [address] [place] [address] Brigidoeverardo Eloisa [address] [place] [address] 12/01/2024 10:00 AM EDT Office Visit Thoracic Surgery - [place] [address] [place] [phone] Cecily Montez MD [address] [place] [address] documented as of this encounter Procedures Procedure [...] documented as of this encounter Care Teams Founder And Chief Executive Officer Relationship Specialty Start Date End Date LoboconcettaMarieEloisaDO beto [address] [facility] [place] [address] PCP - General 04/12/24 documented as of this encounter
--- OUTSIDE RECORDS SUMMARY | 2024-10-10 05:50 | XMS_ITS | Clinical Summary ---
Author Organization [facility] Address [address] [address] Phone Care Team Providers Care Cuff Slitter Name Role Phone Eloisa Vázquez Primary Care Provider [phone] Encounters Date Type Department Care Team Description 09/30/2024 Treatment [facility] [address] [place] [phone] Anthony Norton MD 09/23/2024 Treatment [facility] [address] [address] Anthony Norton MD 09/19/2024 Treatment [facility] [address] [phone] Anthony Norton MD 09/12/2024 Treatment [facility] [address] [address] Anthony Norton MD 09/02/2024 Treatment [facility] [address] [address] Anthony Norton MD 08/26/2024 Treatment [facility] [address] [address] Anthony Norton MD 08/23/2024 Treatment [facility] [address] [phone] Tony Golden MD 08/17/2024 Treatment [facility] [address] [address] Anthony Norton MD 08/11/2024 Orders Only [facility] [address] [address] Anthony Norton MD ANCA associated vasculitis (HCC); 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) 08/08/2024 Treatment [facility] [address] [address] Anthony Norton MD 08/08/2024 Office Communication [facility] [address] [address] Anthony Norton MD ANCA associated vasculitis (HCC) (Primary Dx); 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) 07/28/2024 Telephone [facility] [address] [phone] Maggy Mcgarry from Last 3 Months Social History Tobacco Use Types Packs/Day Years Used Date Smoking Tobacco: Never Assessed Comments Unknown Sex and Gender Information Value Date Recorded Sex Assigned at Not on file Legal Sex Female 10:11 AM EST Gender Identity Not on file Sexual Orientation Not on file Plan of Treatment Health Maintenance Due Date Last Done Comments Pneumococcal Vaccine: 50+ Ye ars (1 of 2 - PCV) 1964 Hepatitis B Vaccine (1 of 5 - Risk Dialysis 4-dose series) 1965 Diabetes: Ophthalmology Exam 08/08/2024 Diabetes: Pedal Pulse Checked 08/08/2024 Diabetes: Sensory Foot Exam 08/08/2024 Diabetes: Visual Foot Exam 08/08/2024 Diabetes: Hemoglobin A1C 12/30/2024 04/ 025, 08/08/2024, 05/31/2024 Influenza Vaccine (Season Ended) 2025 Procedures Procedure Name Priority Date/Time Associated Diagnosis Comments BASIC METABOLIC PANEL BUNDLED (HC) Routine 10/03/2024 3:00 AM EDT GLUCOSE, RANDOM Routine 10/03/2024 3:00 AM EDT LIH (HC) Routine 10/03/2024 3:00 AM EDT COLLECTION DATE (HC) Routine 10/03/2024 3:00 AM EDT FERRITIN Routine 09/30/2024 3:00 AM EDT HEMOGLOBIN [...] Results * (ABNORMAL) Basic Metabolic Panel Bundled (10/03/2024 3:00 AM EDT) Only the most recent of9 resultswithin the time period is included. Sodium 132(L) 136 - 145 mEq/L [facility] Potassium 4.5 3.4 - 5.0 mEq/L [facility] Chloride 100 98 - 107 mEq/L [facility] Bicarbonate (CO2) 21 21 - 31 mEq/L [facility] Anion Gap 11 3 - 14 mEq/L [facility] BUN 60(H) 7 - 25 mg/dL [facility] Calcium 8.0(L) 8.6 - 10.3 mg/dL [facility] Creatinine 3.16(H) 0.55 - 1.02 mg/dL [facility] 10/03/2024 3:00 AM EDT 10/06/2024 12:36 PM EDT us Anthony Norton MD LAB [id number] SOLICITED RESULTS Final Result Performing Organization Address [facility] de Phone Number [facility] [address] [place] [address] * Collection Date (10/03/2024 3:00 AM EDT) Collection Date See Comment [facility] Comment: Patient sample received may exceed specimen stability, based on the collection date electronically provided. ??When reviewing patient results, verify collection information and consider specimen stability before acting on any critical or panic results. 10/03/2024 3:00 AM EDT Anthony Norton MD LAB [id number] SOLICITED RESULTS Final Result Performing Organization Address [facility] de Phone Number [facility] [address] [place] [address] * LIH (10/03/2024 3:00 AM EDT) Only the most recent of12 resultswithin the time period is included. Lipemia Normal Normal [facility] Icterus Normal Normal [facility] Hemolysis Normal Normal [facility] 10/03/2024 3:00 AM EDT 10/06/2024 12:36 PM EDT Anthony Norton MD LAB [id number] SOLICITED RESULTS Final Result Performing Organization Address [facility] de Phone Number [facility] [address] [place] [address] * (ABNORMAL) Glucose, random (10/03/2024 3:00 AM EDT) Only the most recent of12 resultswithin the time period is included. Glucose 169(H) 74 - 109 mg/dL [facility] 10/03/2024 3:00 AM EDT 10/06/2024 12:36 PM EDT Anthony Norton MD LAB BLOOD ORDERABLES Final Re sult Performing Organization Address City/[facility]/ZIP Co de Phone Number [facility] [address] [place] [address] * (ABNORMAL) Kt/V Natural Log, URR (09/30/2024 [...] 1:30 PM EDT Anthony Norton MD LAB [id number] SOLICITED RESULTS Final Result Performing Organization Address [facility] de Phone Number [facility] [address] [place] [address] * (ABNORMAL) Calcium Phosphorus Product, Adjusted (09/30/2024 [...] 1:31 PM EDT Anthony Norton MD LAB [id number] SOLICITED RESULTS Final Result Performing Organization Address [facility] de Phone Number [facility] [address] [place] [address] * Hepatitis B Surface Ag w/Reflex Confirmation (09/30/2024 3:00 AM EDT) Only the most recent of3 resultswithin the time period is included. Pathologist [facility] Hep B Surface Antigen Negative Negative [facility] 09/30/2024 3:00 AM EDT 10/01/2024 1:31 PM EDT Anthony Norton MD LAB BLOOD ORDERABLES Final Re sult Performing Organization Address [facility] de Phone Number [facility] [address] [place] [address] * (ABNORMAL) TSAT (09/30/2024 3:00 AM EDT) Only the most recent of3 resultswithin the time period is included. [facility] Iron 66 50 - 170 ug/dL [facility] Transferrin 127(L) 250 - 380 mg/dL [facility] TIBC 178(L) 211 - 406 ug/dL [facility] Iron Saturation (TSat) 37 22 - 52 % [facility] 09/30/2024 3:00 AM EDT 10/01/2024 1:31 PM EDT Anthony Norton MD LAB BLOOD ORDERABLES Final Re sult Performing Organization Address [facility] de Phone Number [facility] [address] [place] [address] * (ABNORMAL) CBC and Differential (09/30/2024 3:00 AM EDT) Only the most recent of3 resultswithin the time period is included. DIFFERENTIAL [...] ORDERABLES Final Re sult Performing Organization Address [facility] Co de Phone Number [facility] [address] [place] [address] * ALT (09/30/2024 3:00 AM EDT) Only the most recent of3 resultswithin the time period is included. ALT (SGPT) 14 10 - 49 U/L [facility] 09/30/2024 3:00 AM EDT 10/01/2024 1:31 PM EDT Anthony Norton MD LAB BLOOD ORDERABLES Final Re sult Performing Organization Address City/[facility] Co de Phone Number [facility] [address] [place] [address] * AST (09/30/2024 3:00 AM EDT) Only the most recent of3 resultswithin the time period is included. AST (SGOT) 12 <34 U/L [facility] 09/30/2024 3:00 AM EDT 10/01/2024 1:31 PM EDT Anthony Norton MD LAB BLOOD ORDERABLES Final Re sult Performing Organization Address [facility] de Phone Number [facility] [address] [place] [address] * (ABNORMAL) Protein, total (09/30/2024 3:00 AM EDT) Only the most recent of3 resultswithin the time period is included. Total Protein 5.0(L) 6.4 - 8.9 g/dL [facility] 09/30/2024 3:00 AM EDT 10/01/2024 1:31 PM EDT us Anthony Norton MD LAB BLOOD ORDERABLES Final Re sult Performing Organization Address [facility] de Phone Number [facility] [address] [place] [address] * Alkaline phosphatase (09/30/2024 3:00 AM EDT) Only the most recent of3 resultswithin the time period is included. Alkaline Phosphatase 102 46 - 116 U/L [facility] 09/30/2024 3:00 AM EDT 10/01/2024 1:31 PM EDT us Anthony Norton MD LAB BLOOD ORDERABLES Final Re sult Performing Organization Address [facility] Co de Phone Number [facility] [address] [place] [address] * PTH, Intact (09/30/2024 3:00 AM EDT) [...] ORDERABLES Final Re sult Performing Organization Address [facility] Co de Phone Number [facility] [address] [place] [address] * Magnesium (09/30/2024 3:00 AM EDT) Only the most recent of3 resultswithin the time period is included. Magnesium 2.0 1.9 - 2.7 mg/dL [facility] 09/30/2024 3:00 AM EDT 10/01/2024 1:31 PM EDT us Anthony Norton MD LAB BLOOD ORDERABLES Final Re sult Performing Organization Address [facility] de Phone Number [facility] [address] [place] [address] * (ABNORMAL) Lactate dehydrogenase (09/30/2024 3:00 AM EDT) Only the most recent of3 resultswithin the time period is included. LDH 300(H) 120 - 246 U/L [facility] 09/30/2024 3:00 AM EDT 10/01/2024 1:31 PM EDT us Anthony Norton MD LAB BLOOD ORDERABLES Final Re sult Performing Organization Address [facility] Co de Phone Number [facility] [address] [place] [address] * (ABNORMAL) Hemoglobin A1c (09/30/2024 3:00 AM [...] ORDERABLES Final Re sult Performing Organization Address [facility] de Phone Number [facility] [address] [place] [address] * (ABNORMAL) Ferritin (09/30/2024 3:00 AM EDT) Only the most recent of3 resultswithin the time period is included. Ferritin 2,081(H) 10 - 291 ng/mL [facility] 09/30/2024 3:00 AM EDT 10/01/2024 1:31 PM EDT Anthony Norton MD LAB BLOOD ORDERABLES Final Re sult Performing Organization Address [facility] de Phone Number [address] [address] * (ABNORMAL) Creatinine, serum (09/30/2024 3:00 AM EDT) Only the most recent of2 resultswithin the time period is included. Creatinine 3.65(H) 0.55 - 1.02 mg/dL [facility] 09/30/2024 3:00 AM EDT 10/01/2024 1:31 PM EDT Anthony Norton MD LAB BLOOD ORDERABLES Final Re sult Performing Organization Address [facility] de Phone Number [facility] [address] [place] [address] * (ABNORMAL) Bilirubin, total (09/30/2024 3:00 AM EDT) Only the most recent of3 resultswithin the time period is included. Total Bilirubin 0.2(L) 0.3 - 1.2 mg/dL [facility] 09/30/2024 3:00 AM EDT 10/01/2024 1:31 PM EDT Anthony Norton MD LAB BLOOD ORDERABLES Final Re sult Performing Organization Address [facility] de Phone Number [facility] [address] [place] [address] * (ABNORMAL) Lipid panel (09/30/2024 3:00 AM [...] ORDERABLES Final Re sult Performing Organization Address [facility] de Phone Number [facility] [address] [place] [address] * (ABNORMAL) Electrolyte panel (09/30/2024 3:00 AM [...] ORDERABLES Final Re sult Performing Organization Address [facility] de Phone Number [facility] [address] [place] [address] * (ABNORMAL) Hemoglobin (09/26/2024 3:00 AM EDT) Only the most recent of2 resultswithin the time period is included. Hgb 8.9(L) 11.2 - 15.7 g/dL [facility] Hemoglobin x 3 26.7(L) 33.6 - 47.1 g/dL [facility] 09/26/2024 3:00 AM EDT 09/27/2024 1:27 PM EDT Anthony Norton MD LAB BLOOD ORDERABLES Final Re sult Performing Organization Address City/[facility]/ZIP Co de Phone Number [facility] [address] [place] [address] * (ABNORMAL) Creatinine clearance, urine, 24 hour [...] 1:09 PM EDT Anthony Norton MD LAB URINE ORDERABLES Final Re sult Performing Organization Address [facility] Co de Phone Number [facility] [address] [place] [address] * (ABNORMAL) Hemoglobin and hematocrit (09/16/2024 3:00 AM EDT) Only the most recent of2 resultswithin the time period is included. Hgb 8.6(L) 11.2 - 15.7 g/dL [facility] Hematocrit 26.5(L) 34.1 - 44.9 % [facility] Hemoglobin x 3 25.8(L) 33.6 - 47.1 g/dL [facility] 09/16/2024 3:00 AM EDT 09/17/2024 1:04 PM EDT Anthony Norton MD LAB BLOOD ORDERABLES Final Re sult Performing Organization Address [facility] Co de Phone Number [facility] [address] [place] [address] * Phosphorus (09/16/2024 3:00 AM EDT) [facility] Phosphorus, Serum 3.8 2.5 - 5.0 mg/dL [facility] 09/16/2024 3:00 AM EDT 09/17/2024 1:09 PM EDT us Anthony Norton MD LAB BLOOD ORDERABLES Final Re sult Performing Organization Address [facility] de Phone Number [facility] [address] [place] [address] * Confirmation Test HCV (08/08/2024 3:00 AM EST) [facility] Hep C Ab Confirmation Not needed [facility] 08/08/2024 3:00 AM EST 08/09/2024 1:15 PM EST us Anthony Norton MD LAB BLOOD ORDERABLES Final Re sult Performing Organization Address [facility] de Phone Number [facility] [address] [place] [address] * HEPATITIS C ABS W/REFLEX RNA DETECTR (08/08/2024 3:00 AM EST) [facility] Hep C Virus Ab Non-Reacti ve Non-Reacti ve [facility] 08/08/2024 3:00 AM EST 08/09/2024 1:17 PM EST us Anthony Norton MD LAB [id number] SOLICITED RESULTS Final Result Performing Organization Address [facility] de Phone Number [facility] [address] [place] [address] * Hepatitis B Core Antibody, Total (08/08/2024 3:00 AM EST) [facility] HBc Total Ab, S Negative Negative [facility] 08/08/2024 3:00 AM EST 08/09/2024 1:17 PM EST Anthony Norton MD LAB BLOOD ORDERABLES Final Re sult Performing Organization Address [facility] de Phone Number [facility] [address] [place] [address] * Aluminum level (08/08/2024 3:00 AM EST) Aluminum 4 1 - 20 ug/L [facility] 08/08/2024 3:00 AM EST 08/09/2024 1:21 PM EST us Anthony Norton MD LAB BLOOD ORDERABLES Final Re sult Performing Organization Address [facility] de Phone Number [facility] [address] [place] [address] * Vitamin D 25 Hydroxy (08/08/2024 3:00 AM EST) Pathologist [facility] Vitamin D, 25-Hydroxy 38 30 - 100 ng/mL [facility] Comment: Status ? Adult ?? Pediatric Deficient: ? <20 ? <15 Insufficient: ??20-29 ?? 15-19 Sufficient: ?30-100 ??20-100 08/08/2024 3:00 AM EST 08/09/2024 1:17 PM EST us Anthony Norton MD LAB BLOOD ORDERABLES Final Re sult Performing Organization Address [facility] de Phone Number [facility] [address] [place] [address] * (ABNORMAL) Hepatitis B Surface Antibody (08/08/2024 3:00 AM EST) Hep B Surface Antibody <4(A) mIU/mL [facility] Comment: Interpretation: <10: No Immunity >=10: Probable Immunity 08/08/2024 3:00 AM EST 08/09/2024 1:17 PM EST Anthony Norton MD LAB BLOOD ORDERABLES Final Re sult [facility] [address] [place] [address] * Uric Acid (08/08/2024 3:00 AM EST) Uric Acid 5.0 2.3 - 6.6 mg/dL [facility] 08/08/2024 3:00 AM EST 08/09/2024 1:17 PM EST Anthony Norton MD LAB BLOOD ORDERABLES Final Re sult Performing Organization Address [facility] Co de Phone Number [facility] [address] [place] [address] from Last 3 Months Insurance [address] [place] [id number] Medicare Care Teams Cuff Slitter Relationship Specialty Start Date End Date Eloisa Vázquez [address] [place] [address] PCP - General Internal Medicine 07/11/24
--- OUTSIDE RECORDS SUMMARY | 2024-10-10 05:51 | XMS_ITS | Clinical Summary ---
Author Organization [facility] Address [address] [place] [address] Care Team Providers Care Case Planner Name Role Phone Eloisa Vázquez DO Primary Care Provider Allergies No known active allergies Medications cetirizine [...] total) 2 (two) times a day. 5 Active carvediloL (COREG) 3.125 mg tablet Take by mouth 2 (two) times a day with meals. Active insulin glargine (LANTUS SoloStar) 100 unit/mL (3 mL) injection pen 10 untis at bedtime 5 Active insulin lispro (HumaLOG KwikPen) 100 unit/mL injection pen Use three times a day before meals: <100: 0 units, 151-200: 2 units, 201-250: 4 units, 251-300: 6 units, 301-350: 7 units, 351-400: 8 units, >400: call me and use 9 units 5 Active sulfamethoxazol e-trimethoprim (BACTRIM DS,SEPTRA DS) 800-160 mg per tablet Take 1 tablet by mouth 3 (three) times a week for 16 doses. 5 09/14/19 25 cephalexin (KEFLEX) 500 mg capsule Take 1 capsule (500 mg total) by mouth 2 (two) times a day for 10 days. 20 each 5 09/23/19 25 Active Problems Patient Care Coordination No te Formatting of this note migh t be different from the original. Barriers: Renal Bx 07/22 w/ path pending, new HD, trend labs, H/H, heparin drip- LLE DVT, repeat Pt eval, lung mass biopsy 07/27 Plan: 1st choice - [facility] d/t onsite HD. [facility] accepting w family to provide HD [...] and how their size, shape, and exchange consultant time affect her level of suspicion for [...] weeks. She will need to see her inspector and sorter prior to procedure. Hypertension 06/01/2024 Hyperlipidemia 06/01/2024 History of cancer of unknown primary site 2023 CKD (chronic kidney disease) stage 4, GFR 15-29 ml/min (CMS/HCC V24, CMS/HCC V28) 06/01/2024 Iron deficiency anemia 06/01/2024 Assessment & Plan (08/23/2024 4:46 PM EST): Patient and her daughter decline GI workup for iron deficiency anemia. See H&P Impaired renal function 06/01/2024 Type 2 diabetes mellitus wit hout complication, without long-term current use of insulin ([facility] V24, [facility] V28) 06/01/2024 Resolved Problems Problem Noted Date Diagnosed Date Resolved Date Acute encephalopathy 07/08/2024 025 Encounters Date Type Department Care Team Description 09/12/2024 5:08 PM EDT - 09/13/2024 12:[address] [facility] [address] [place] [phone] Anthony Sparks MD Fall, initial encounter (Primary Dx); Acute cystitis without hematuria Discharge Disposition: Home or Self Care 09/06/2024 4:40 PM EDT Office Visit Endocrinology [address] [phone] Kathy Michelle PA Type 2 diabetes mellitus without complication, without long-term current use of insulin ([facility] V24, [facility] V28) (Primary Dx); CKD (chronic kidney disease) stage 4, GFR 15-29 ml/min ([facility] V24, [facility] V28); Primary hypertension 08/23/2024 3:00 PM EST Office Visit Gastroenterology - [address] [place] [phone] Josiane Smith, SPECIAL ASSETS OFFICER Iron deficiency anemia, unspecified iron deficiency anemia type; History of cancer of unknown primary site 08/22/2024 8:30 AM EST - 08/22/2024 11:59 PM EST Hospital Encounter [facility] [address] [place] [phone] Chencho Wayne MD Crescentic glomerulonephritis (Primary Dx); Cresentic glomerulonephritis of transplanted kidney Discharge Disposition: Home or Self Care 08/22/2024 Social Work [facility] [address] [place] [phone] Haley Andrews LMSW 08/15/2024 1:30 PM EST Office Visit Thoracic Surgery - [place] [address] [facility] [address] [place] [phone] Cecily Montez MD Pulmonary nodule (Primary Dx); Lung mass 08/11/[address] [facility] [address] [place] [phone] Nalini Clark RN 08/10/2024 10:00 AM EST Office [address] [facility] Hematology Oncology [address] [place] [phone] Jaime Grimaldo MD Lung mass (Primary Dx); Normocytic anemia; Chronic renal failure, stage 5 (CMS/HCC V24, CMS/HCC V28) 08/09/2024 Telephone Nephrology - [address] [phone] Chencho Wayne MD provider call back 08/05/2024 11:46 AM EST Anesthesia Event [facility] [place] [address] [place] [phone] Monroe Kim MD 08/05/2024 11:30 AM EST - 08/05/2024 1:[address] [facility] [address] [place] [phone] Cecily Montez MD Navigation bronchoscopy/EBUS [82105 (CPT??) +2 more] 08/01/2024 Telephone Internal Medicine - [facility] [address] [place] [phone] Eloisa Vázquez, Forms/questionnaires (PFML) 07/08/2024 10:31 AM EST - 08/06/2024 1:09 PM EST Hospital Encounter [facility] Urology Unit [address] [place] [phone] Jj Wolfe MD Flores, Carlos M, MD Japaridze, Anna, MD Santoyo-Pachec o, Omar D, MD Kokosadze, Estate, MD Zipagan, James T, MD Seralathan, Manikandan, MD Anemia, unspecified type (Primary Dx); Hyponatremia; Acute on chronic renal insufficiency; Acute encephalopathy; Bilateral leg edema; Pulmonary nodule Discharge Disposition: Retirement Facility from Last 3 Months Surgical History Surgery Date Site/Laterality Comments OTHER SURGICAL HISTORY 05/2012 PROCEDURE: ---- OTHER ----; COMMENT: lumbar microdiscectomy CATARACT EXTRACTION 2019 Bilateral PROCEDURE: HISTORICAL CATARACT REMOVAL Medical History Medical History Date Comments Diabetes mellitus, type 2 (C MS/HCC V24, CMS/HCC V28) 02/14/2014 DX:Diabetes mellitus, type 2 (HCC) Hyperlipidemia [...] Anemia Arthritis Joint pain DVT, lower extremity (CMS/HC C V24, CMS/HCC V28) LEFT LEG History of renal dialysis CURREN [...] COPD Brother 3 Alive [address] Daughter Alive Healthy Father (Age 54) CT Mother (Age 93) Osteoporos is, HTN, Arthritis [...] 10/17/2024 1:20 PM EDT Telemedicine Endocrinology - [facility] [address] [place] [phone] Kathy Michelle PA [address] [place] [address] 11/11/2024 11:00 AM EDT Ancillary Procedure [facility] [address] [place] [address] [place] [phone] 11/14/2024 11:[address] [facility] CT Scan [address] [place] [phone] 11/18/2024 2:15 PM EDT Office Visit Internal Medicine - [facility] [address] [place] [phone] Eloisa Vázquez DO [address] [place] [address] 12/01/2024 10:00 AM EDT Office Visit Thoracic Surgery - [place] [address] [facility] [address] [place] [phone] Cecily Montez MD [address] [facility] [place] [address] [place] [address] Health Maintenance Due Date Last Done Comments [...] age to complete this topic Meningococcal B Vaccine Aged Out No l onger eligible based on patient's age to complete this topic RSV Immunization Patients Under 20 months Aged Out No longer eligible based on patient's age to complete this topic Varicella Vaccines Aged Out No longer eligible based on patient's age to complete this topic Medical Devices Implanted Type Area Teletype Or Varitype Keyboard Operator Device Identifier Shelf Expiration Date Model / Serial / Lot Cath Dial W/Vt Kt 14.8yk39el Palindrome Precision - [id number] - [id number] Implanted:Qty: 1 on 07/15/2024 by Fela Palomo MD at [facility] Dialysis Catheters Left: Chest Wall [facility] [id number] 09/26/2028 [id number] [id number] / [id number] / [id number] Sponge Surgifoam Gel 12 X 7mm - [id number] - [id number] Implanted:Qty: 1 on 05/23/2024 by Fela Palomo MD at [facility] Hemostasis Right: Lung [employer] [id number] 08/27/20271971 / [id number] / Sponge Surgifoam Gel 12 X 7mm - [id number] - [id number] Implanted:Qty: 1 on 07/22/2024 by Fela Palomo MD at [facility] Hemostasis Left: Kidney [employer] [id number] 05/24/20281971 / [id number] / Procedures Procedure Name Priority Date/Time Associated Diagnosis Comments ECG ANNOTATED 09/13/2024 ECG 12-LEAD STAT 09/12/2024 9:12 PM EDT TROPONIN I HIGH SENSITIVITY STAT 09/12/2024 8:[address] HEAD WO CONTRAST STAT 09/12/2024 8 :[address] CERVICAL SPINE WO CONTRAST STAT 09/12/2024 8:12 PM EDT ECG 12-LEAD STAT 09/12/2024 6:38 PM EDT ROBERTSON URINE CULTURE TUBE STAT 09/12/2024 6:38 PM EDT URINALYSIS WITH [...] Pulmonary nodule ACID FAST BACILLI STAIN Routine 08/05/2024 12:32 PM EST Pulmonary nodule CULTURE BRONCHIAL WITH GRAM STAIN Routine 08/05/2024 12:32 PM EST Pulmonary nodule CULTURE, AFB AND SMEAR WITH REFLEX TO IDENTIFICATION AND SUSCEPTIBILITY Routine 08/05/2024 12:32 PM EST Pulmonary nodule CULTURE FUNGAL, OTHER Routine 08/05/2024 12:32 PM EST Pulmonary nodule XR CHEST 1 VIEW Routine 08/05/2024 12:29 PM EST NON-GYNECOLOGIC CYTOLOGY Routine 08/05/2024 12:20 PM EST Pulmonary nodule TH AN ENDOTRACHEAL(NO CHARGE) Routine 08/05/2024 12:08 PM EST HI BRONCHOSCOPY RIGID/FLEXIBLE W/EBUS >=3 MEDIASTINAL/HILAR LYMPH NODES 08/05/2024 11:46 AM EST Pulmonary nodule HI BRONCHOSCOPY INCL FLUROSCOPIC GUIDANCE W PLCMNT FIDUCIAL MARKER SGL/MULT 08/05/2024 11:46 AM EST Pulmonary nodule HI BRONCHOSCOPY RIGID/FLEXIBLE INCL FLUORO W/THERAPY ASPIRATION INITIAL [...] AM EST ROBERTSON URINE CULTURE TUBE Routine 07/18/2024 6:10 AM EST EXTRA TUBES Routine 07/18/2024 [...] METABOLIC PANEL Routine 07/12/2024 6:19 AM EST HEMOGLOBIN A1C Routine 05/31/2024 9:22 AM EST Cataract, diabetic (CMS/HCC V24, CMS/HCC V28) LIPID PANEL WITH REFLEX TO DIRECT LDL Routine 05/31/2024 9:22 AM EST Iron deficiency anemia, unspecified Cataract, diabetic (CMS/[facility] V24, [facility] V28) Hyperlipemia [facility] DEXA AXIAL SKELETON Routine 04/15/2018 10:29 AM EDT Encounter for screening for osteoporosis from Last 3 Months or Most Recently Relevant to Health Maintenance Results * ECG-Annotated (09/13/2024) Provider Onbase MD ECG ORDERABLES Final Result * ECG 12 lead (09/12/2024 9:12 PM EDT) Only the most recent of2 resultswithin the time period is included. Pathologist [facility] Ventricular Rate ECG 83 BPM GEMUSE Atrial Rate 83 BPM GEMUSE P-R Interval 178 ms GEMUSE QRS Duration 130 ms GEMUSE Q-T Interval 394 ms GEMUSE QTc 462 ms GEMUSE P Wave Summit 66 degrees GEMUSE R Summit 15 degrees GEMUSE T Summit 11 degrees GEMUSE ECG Interpretation Sinus rhythm with Premature atrial complexes Right bundle branch block Abnormal ECG When compared with ECG of 12-SEP-2024 21:12, No significant change was found Confirmed by MD Ramon, [place] ([id number]) on 09/14/2024 10:02:49 AM GEMUSE 09/12/2024 9:12 PM EDT 09/14/2024 10:02 AM EDT Jose HEDRICK ECG ORDERABLES Final Result GEMUSE * (ABNORMAL) Troponin I high sensitivity (NOW and then in 1 hour) (09/12/2024 8:27 PM EDT) Only the most recent of2 resultswithin the time period is included. Pathologist [facility] High Sensitivity Troponin I 110(H) <=54 ng/L LAB CHEMISTRY METHOD 09/12/2024 10:11 PM EDT [facility] Blood Venous blood specimen / Unknown Venipuncture / Unknown 09/12/2024 8:27 PM EDT 09/12/2024 9:33 PM EDT [facility]ative [facility]) [facility] - 09/12/2024 10:11 PM EDT High levels of biotin in samples may falsely decrease hsTroponin values. ??Use caution when interpreting hsTroponin results in patients taking biotin who exhibit renal impairment (eGFR <60) or in patients taking more than 20 mg/day of biotin. us Madan Braga MD LAB BLOOD ORDERABLES Final Resu lt [facility] ([facility]) [facility] [address] [place] [address], [place] [phone] * CT Cervical Spine wo Contrast (09/12/2024 8:12 PM EDT) Anatomical Region Laterality Modality Spine, C-spine Computed [...] a left-sided central venous line. Procedure Note Dennise Obrien MD - 09/12/2024 INDICATION: trauma, neck pain [...] MD on 09/12/2024 20:55:04 Madan Braga MD [facility] [place]EDURES Final Result * CT Head wo Contrast (09/12/2024 8:12 PM EDT) Anatomical Region Laterality Modality Head and Neck [...] There is no acute fracture. Procedure Note Dennise Obrien MD - 09/12/2024 INDICATION: Head injury with [...] by: Dennise Main MD on 09/12/2024 20:56:04 Madan Braga MD [facility] [place]ED[place] Final Result * (ABNORMAL) Urinalysis with reflex microscopic and culture (09/12/2024 6:38 PM EDT) Specific [place] Urine 1.025 1.003 - 1.030 LAB URINALYSIS - AUTOMATED METHOD 09/12/2024 8:45 PM EDT [facility] pH, Urine 6.5 5.0 - 8.0 pH LAB URINALYSIS - AUTOMATED METHOD 09/12/2024 8:45 PM [facility] Leukocytes, Urine Moderate(A) Negative LAB URINALYSIS - AUTOMATED METHOD 09/12/2024 8:45 PM [facility] Nitrite, Urine Negative Negative LAB URINALYSIS - AUTOMATED METHOD 09/12/2024 8:45 PM [facility] Protein, Urine >=300(A) <=Trace mg/dL LAB URINALYSIS - AUTOMATED METHOD 09/12/2024 8:45 PM [facility] Glucose, Urine 100(A) Negative mg/dL LAB URINALYSIS - AUTOMATED METHOD 09/12/2024 8:45 PM [facility] Ketones, Urine Negative Negative mg/dL LAB URINALYSIS - AUTOMATED METHOD 09/12/2024 8:45 PM [facility] Urobilinogen , Urine 0.2 0.2 - 1.0 mg/dL LAB URINALYSIS - AUTOMATED METHOD 09/12/2024 8:45 PM [facility] Bilirubin, Urine Negative Negative LAB URINALYSIS - AUTOMATED METHOD 09/12/2024 8:45 PM [facility] Blood, Urine Large(A) Negative LAB URINALYSIS - AUTOMATED METHOD 09/12/2024 8:45 PM [facility] RBC, Urine 10(H) 0 - 4 /HPF 09/12/2024 8:45 PM [facility] WBC, Urine >100(H) 0 - 4 /HPF 09/12/2024 8:45 PM [facility] Squamous Epithelial, Urine 50 0 - 60 /LPF 09/12/2024 8:45 PM [facility] Non-Squamous Epithelial, Urine 2-5 Transitional epithelial cells. /LPF 09/12/2024 8:45 PM [facility] Bacteria, Urine Many(A) Negative /HPF 09/12/2024 8:45 PM EDT [facility] Hyaline Casts, Urine 3 0 - 3 /LPF 09/12/2024 8:45 PM EDT [facility] Other Casts, Urine 2-5 Coarse Granular casts. Rare Fine Granular casts. Rare Waxy casts. /LPF 09/12/2024 8:45 PM EDT [facility] Urine Urine specimen obtained by clean catch procedure / Unknown Non-blood Collection / Unknown 09/12/2024 6:38 PM EDT 09/12/2024 7:59 PM EDT Anthony Sparks MD LAB URINE ORDERABLES Final Result Performing Organization Address [facility] Co de Phone Number [facility] [address] [place] [address], [place] [phone] * Robertson urine culture tube (09/12/2024 6:38 PM EDT) Only the most recent of2 resultswithin the time period is included. Extra Tube Hold for add-ons. 09/12/2024 9:01 PM EDT [facility] Comment:Auto resulted. Urine Urine specimen obtained by clean catch procedure / Unknown Non-blood Collection / Unknown 09/12/2024 6:38 PM EDT 09/12/2024 7:59 PM EDT Anthony Sparks MD LAB URINE ORDERABLES Final Result Performing Organization Address City/[facility]/ZIP Co de Phone Number [facility] [address] [place] [address], [place] [phone] * (ABNORMAL) Culture urine (09/12/2024 6:38 PM EDT) Culture, Urine >100,000 CFU/mL Pseudomonas aeruginosa(A) [place] 09/16/2024 9:53 AM EDT [facility] Comment: This is an edited result. Previous organism was Gram negative bacilli on 09/15/2024 at 1216 EDT. Culture, Urine >100,000 CFU/mL Enterococcus faecalis(A) KIRILL 09/16/2024 9:53 AM EDT [facility] Comment: The organism value [...] Enterococcus faecalis Nitrofurantoin KIRILL <=16 ug/ml: Susceptible us Anthony Sparks MD LAB MICROBIOLOGY - GENERAL ORDERABLES Final Result [facility] [address] [place] [address], * (ABNORMAL) CBC auto differential (09/12/2024 6:22 PM EDT) Only the most recent of19 resultswithin the time period is included. WBC 6.9 4.8 - 10.8 K/mcL LAB HEMETOLOGY METHOD 09/12/2024 6:51 PM EDT [facility] RBC 2.80(L) 3.80 - 4.80 M/mcL LAB HEMETOLOGY METHOD 09/12/2024 6:51 PM EDT [facility] Hemoglobin 8.2(L) 11.5 - 16.0 g/dL LAB HEMETOLOGY METHOD 09/12/2024 6:[facility] Hematocrit 25.2(L) 35.0 - 47.0 % LAB HEMETOLOGY METHOD 09/12/2024 6:51 PM EDT [facility] MCV 90.0 79.0 - 98.0 FL LAB HEMETOLOGY METHOD 09/12/2024 6:51 [facility] MCH 29.3 27.0 - 32.0 pcg LAB HEMETOLOGY METHOD 09/12/2024 6:51 PM [facility] MCHC 32.5 32.0 - 37.0 g/dL LAB HEMETOLOGY METHOD 09/12/2024 6:51 PM [facility] RDW 20.2(H) 11.0 - 15.0 % LAB HEMETOLOGY METHOD 09/12/2024 6:51 PM [facility] Platelets 179 130 - 400 K/mcL LAB HEMETOLOGY METHOD 09/12/2024 6:51 PM [facility] MPV 10.4 7.0 - 11.0 FL LAB HEMETOLOGY METHOD 09/12/2024 6:51 PM EDT [facility] NRBC 0.0 <1.0 % LAB HEMETOLOGY METHOD 09/12/2024 6:51 PM [facility] NRBC Absolute 0.00 <0.10 K/mcL LAB HEMETOLOGY METHOD 09/12/2024 6:51 PM [facility] Neutrophils Relative 88.7 % LAB HEMETOLOGY METHOD 09/12/2024 6:51 PM EDT [facility] Lymphocytes Relative 6.7 % LAB HEMETOLOGY METHOD 09/12/2024 6:51 PM EDT [facility] Monocytes Relative 3.0 % LAB HEMETOLOGY METHOD 09/12/2024 6:51 PM EDT [facility] Eosinophils Relative 0.1 % LAB HEMETOLOGY METHOD 09/12/2024 6:51 PM EDT [facility] Basophils Relative 0.0 % LAB HEMETOLOGY METHOD 09/12/2024 6:51 PM EDT [facility] Immature Granulocytes Relative 1.5 % LAB HEMETOLOGY METHOD 09/12/2024 6:51 PM EDT [facility] Neutrophils Absolute 6.11 1.50 - 7.00 K/mcL LAB HEMETOLOGY METHOD 09/12/2024 6:51 PM T [facility] Lymphocytes Absolute 0.46(L) 1.00 - 5.00 K/mcL LAB HEMETOLOGY METHOD 09/12/2024 6:51 PM EDT [facility] Monocytes Absolute 0.21 0.20 - 1.00 K/mcL LAB HEMETOLOGY METHOD 09/12/2024 6:51 PM EDT [facility] Eosinophils Absolute 0.01 0.00 - 0.50 K/mcL LAB HEMETOLOGY METHOD 09/12/2024 6:51 PM EDT [facility] Basophils Absolute 0.00 0.00 - 0.20 K/mcL LAB HEMETOLOGY METHOD 09/12/2024 6:51 PM EDT [facility] Immature Granulocytes Absolute 0.10(H) 0.00 - 0.03 K/mcL LAB HEMETOLOGY METHOD 09/12/2024 6:51 PM [facility] Blood Venous blood specimen / Unknown Venipuncture / Unknown 09/12/2024 6:22 PM EDT 09/12/2024 6:42 PM EDT Madan Braga MD LAB BLOOD ORDERABLES Final Resu lt [facility] [address] [place] [address], * (ABNORMAL) Basic Metabolic Panel (BMP) (09/12/2024 6:22 PM EDT) Only the most recent of23 resultswithin the time period is included. Sodium 137 133 - 145 mmol/L LAB CHEMISTRY METHOD 09/12/2024 7:15 PM EDT [facility] Potassium 4.1 3.5 - 5.5 mmol/L LAB CHEMISTRY METHOD 09/12/2024 7:15 [facility] Chloride 103 96 - 110 mmol/L LAB CHEMISTRY METHOD 09/12/2024 7:15 PM [facility] CO2 24 21 - 32 mmol/L LAB CHEMISTRY METHOD 09/12/2024 7:15 PM EDT [facility] Anion Gap 10 3 - 11 LAB CHEMISTRY METHOD 09/12/2024 7:15 PM [facility] Glucose 204(H) 70 - 100 mg/dL LAB CHEMISTRY METHOD 09/12/2024 7:15 PM [facility] BUN 30(H) 5 - 25 mg/dL LAB CHEMISTRY METHOD 09/12/2024 7:15 PM [facility] Creatinine 2.36(H) 0.50 - 1.10 mg/dL LAB CHEMISTRY METHOD 09/12/2024 7:15 PM [facility] eGFR 20(L) >=60 mL/min/1. 73m2 LAB CHEMISTRY METHOD 09/12/2024 7:15 PM [facility] Comment:Calculation based on the??Chronic Kidney Disease Epidemiology Collaboration (CKD-EPI) equation refit??without adjustment for race. BUN/Creatinine Ratio 12.7 LAB CHEMISTRY METHOD 09/12/2024 7:15 PM [facility] Calcium 8.0(L) 8.5 - 10.5 mg/dL LAB CHEMISTRY METHOD 09/12/2024 7:15 PM EDT [facility] Blood Venous blood specimen / Unknown Venipuncture / Unknown 09/12/2024 6:22 PM EDT 09/12/2024 6:42 PM EDT Madan Braga MD LAB BLOOD ORDERABLES Final Resu lt Performing Organization Address [facility] Co de Phone Number [facility] [address] [place] [address], [place] [phone] * (ABNORMAL) POCT Glucose, blood (08/06/2024 11:07 AM EST) Only the most recent of100 resultswithin the time period is included. Glucose POCT 187(H) 70 - 100 mg/dL 08/06/2024 11:09 AM EST [facility] Blood Capillary blood specimen / Unknown 08/06/2024 11:07 AM EST 08/06/2024 11:10 AM EST Steve Cruz MD LAB POINT OF CA RE TEST DOCKED DEVICE UNSOLICITED RESULTS Final Result Performing Organization Address [facility] de Phone Number [facility] [address] [place] [address], [place] [phone] * XR Chest 1 View (08/05/2024 1:43 [...] Signed Date: 08/05/2024 13:49 ET Workstation ID: [id number] Transcribed By: Self Edit Transcribed Date: 08/05/2024 [...] Truong Ren Reviewed and Electronically Signed By: Truogn Ren Signed Date: 08/05/2024 13:49 ET Workstation ID: [id number] Transcribed By: Self Edit Transcribed Date: 08/05/2024 [...] MICROBIOLOGY - GENERAL ORDER SYLVAIN Final Result [facility] [address] [place] [address], [place] [phone] * Concentration (08/05/2024 12:32 PM EST) AFB Concentration Performed 5:05 PM EDT [facility] Structure of upper lobe of right lung / Unknown 08/05/2024 12:32 PM EST 08/05/2024 1:17 PM EST Narrative [facility] - 09/19/2024 5:05 PM EDT Performed at: ??01 - [facility] [address] ??[id number] Seo Coordinator: Diane Belle MD, Phone: ??[phone] Cecily Montez MD LAB BLOOD ORDERABLES Edited Resu lt - Final Performing Organization Address City/[facility]/ZIP Co de Phone Number [facility] * Culture, afb and smear with reflex to identification and susceptibility (08/05/2024 12:32 PM EST) Pathologist [facility] AFB Specimen Processing Concentration 09/19/2024 5:05 PM [...] PM EDT Performed at: ??01 - [facility] [address] ??[id number] Seo Coordinator: Diane Belle MD, Phone: ??[phone] Cecily Montez MD LAB MICROBIOLOGY - GENERAL ORDER SYLVAIN Final Result Performing Organization Address City/[facility]/ZIP Co de Phone Number [facility] * Acid [...] ORDER SYLVAIN Final Result Performing Organization Address City/[facility]/ZIP Co de Phone Number [facility] [address] [place] [address], [place] [phone] * Culture fungal, other (08/05/2024 12:32 PM EST) Culture, Fungus Negative for Fungus after 4 Weeks 09/05/2024 8:16 AM EDT [facility] Wash Structure of upper lobe of right lung / Unknown 08/05/2024 12:32 PM EST 08/05/2024 1:17 PM EST us Cecily Montez MD LAB MICROBIOLOGY - GENERAL ORDER SYLVAIN Final Result Performing Organization Address [facility] Co de Phone Number [facility] [address] [place] [address], [place] [phone] * Non-gynecologic cytology (08/05/2024 12:20 PM EST) [...] lymph node elements present. 08/09/2024 1:04 PM [facility] Specimen A Adequacy Satisfactory for evaluation 08/09/2024 1:04 PM [facility] Specimen B Adequacy Satisfactory for [...] time 54 hours. 08/09/2024 1:04 PM EST [facility] Disclaimer Unless otherwise specified, all tissue is 10% NB formalin fixed and paraffin embedded. Technical cytopathology services provided by [facility], at [address] [place] [address], [place] [address] (CLIA # [id number]/Gladys Prince MD, [employer]visor [employer].) 08/09/2024 1:04 PM EST [facility] Brushing, function (observable entity) [...] MD LAB CYTOLOGY ORDERABLES Final Re sult [facility]) [facility] [address] [place] [address], [place] [phone] * TH AN ENDOTRACHEAL(NO CHARGE) (08/05/2024 12:08 PM EST) Candelaria Romano CRNA - 08/05/2024 12:08 PM EST Candelaria Tatum CRNA ? 08/05/2024 12:10 PM General Information and Staff Patient location during procedure: OR Anesthesiologist: Monroe Kim MD Resident/SERGING MACHINE OPERATOR: Candelaria Tatum CRNA Performed: resident/SERGING MACHINE OPERATOR/CAA Performed by: Candelaria Tatum CRNA [...] 7:03 AM EST) Only the most recent of12 resultswithin the time period is included. WBC 8.8 4.8 - 10.8 K/mcL LAB HEMETOLOGY METHOD 08/05/2024 7:42 AM EST [facility] RBC 2.90(L) 3.80 - 4.80 M/mcL LAB HEMETOLOGY METHOD 08/05/2024 7:42 AM [facility] Hemoglobin 7.9(L) 11.5 - 16.0 g/dL LAB HEMETOLOGY METHOD 08/05/2024 7:42 AM EST [facility] Hematocrit 25.5(L) 35.0 - 47.0 % LAB HEMETOLOGY METHOD 08/05/2024 7:42 AM [facility] MCV 87.6 79.0 - 98.0 FL LAB HEMETOLOGY METHOD 08/05/2024 7:42 AM [facility] MCH 27.1 27.0 - 32.0 pcg LAB HEMETOLOGY METHOD 08/05/2024 7:42 AM EST [facility] MCHC 31.0(L) 32.0 - 37.0 g/dL LAB HEMETOLOGY METHOD 08/05/2024 7:42 AM [facility] RDW 21.9(H) 11.0 - 15.0 % LAB HEMETOLOGY METHOD 08/05/2024 7:42 AM [facility] Platelets 180 130 - 400 K/mcL LAB HEMETOLOGY METHOD 08/05/2024 7:42 AM EST [facility] MPV 10.8 7.0 - 11.0 FL LAB HEMETOLOGY METHOD 08/05/2024 7:42 AM [facility] NRBC 0.0 <1.0 [...] [facility] [address] [place] [address], * (ABNORMAL) Creatinine, Serum - Every 7 [...] ORDERABLES Final Re sult Performing Organization Address [facility]/ZIP Co de Phone Number [facility] [address] [place] [address], [place] [phone] * Hepatitis B surface antigen with reflex to confirmation (08/03/2024 8:49 AM EST) Only the most recent of3 resultswithin the time period is included. Pathologist [facility] [place] Hepatitis B Surface Ag Negative Negative LAB [...] ORDERABLES Fi nal Result Performing Organization Address [facility]/ZIP Co de Phone Number [facility] [address] [place] [address], [place] [phone] * Hepatitis B surface antibody quantitative (08/03/2024 [...] [facility] [address] [place] [address], [place] [phone] * Phosphorus (08/03/2024 6:01 AM EST) Only the most recent of4 resultswithin the time period is included. Pathologist [facility] [place] Phosphorus 4.3 2.5 - 4.5 mg/dL LAB CHEMISTRY METHOD 08/03/2024 8:11 AM EST [facility] Blood Venous blood specimen / Unknown Venipuncture / Unknown 08/03/2024 6:01 AM EST 08/03/2024 7:27 AM EST us Steve Cruz MD LAB BLOOD ORDERABLES Fi nal Result [facility] [address] [place] [address], [place] [phone] * Magnesium (08/03/2024 6:01 AM EST) Only the most recent of6 resultswithin the time period is included. Pathologist [facility] [place] Magnesium 2.1 1.9 - 2.6 mg/dL LAB CHEMISTRY METHOD 08/03/2024 8:11 AM EST [facility] Blood Venous blood specimen / Unknown Venipuncture / Unknown 08/03/2024 6:01 AM EST 08/03/2024 7:27 AM EST Steve Cruz MD LAB BLOOD ORDERABLES Fi nal Result Performing Organization Address City/[facility]/ZIP Co de Phone Number [facility] [address] [place] [address], * Type and screen (08/02/2024 3:04 PM EST) Only the most recent of3 resultswithin the time period is included. [facility] ABO Group O 08/02/2024 4:52 PM EST [...] BLOOD BANK TEST ORD ERABLES Final Result [facility] [address] [place] [address], * Prepare RBC: 1 Units (08/02/2024 2:09 PM EST) Only the most recent of3 resultswithin the time period is included. [facility] Product Code [id number] 08/02/2024 6:27 PM EST [facility] Unit Number [id number] 08/02/19 6:27 PM [facility] Crossmatch Compatible 08/02/2024 5:03 PM [facility] Dispense Status Transfused 08/02/2024 6:27 PM [facility] Unit ABO Rh OPOS 08/02/2024 6:27 PM [facility] Unit Expiration Date Time [id number] 08/02/2024 6:27 PM [facility] Unit Blood Type 5100 08/02/2024 6:27 PM [facility] Blood Venous blood specimen / Unknown 08/02/2024 2:09 PM EST 08/02/2024 4:07 PM EST us Steve Cruz MD BLOOD BANK PRODUCT ORDE RABLES Final Result [facility] [address] [place] [address], [place] [phone] * (ABNORMAL) Hemoglobin and hematocrit (07/31/2024 2:30 [...] [facility] [address] [place] [address], [place] [phone] * (ABNORMAL) Hepatic Function Panel - STAT (07/30/2024 11:52 AM EST) Only the most recent of2 resultswithin the time period is included. Total Protein 5.2(L) 6.0 - 8.0 g/dL LAB CHEMISTRY METHOD 07/30/2024 12:56 PM EST [facility] Albumin 2.4(L) 3.2 - 5.0 g/dL LAB CHEMISTRY METHOD 07/30/2024 12:56 PM EST [facility] Total Bilirubin 0.4 0.0 - 1.4 mg/dL LAB CHEMISTRY METHOD 07/30/2024 12:56 PM [facility] Bilirubin, Direct 0.2 0.0 - 0.3 mg/dL LAB CHEMISTRY METHOD 07/30/2024 12:56 PM EST [facility] Bilirubin, Indirect 0.2 0.0 [...] [facility] [address] [place] [address], * (ABNORMAL) Heparin and low molecular weight [...] 6:10 AM EST 07/30/2024 6:26 AM EST [facility] - 07/30/2024 6:53 AM EST Therapeutic range listed is for Unfractionated Heparin. LMW Heparin therapeutic range: 0.50-1.20 IU/mL Jonny Mathur MD LAB BLOOD ORDERABLES Final Re sult Performing Organization Address [facility]/ZIP Co de Phone Number [facility] [address] [place] [address], * Hepatitis B core antibody IgM (07/28/2024 12:19 PM EST) [facility] Hep B Core IgM Negative Negative LAB CHEMISTRY METHOD 07/28/2024 3:22 PM EST [facility] Blood Venous blood specimen / Unknown Venipuncture / Unknown 07/28/2024 12:19 PM EST 07/28/2024 12:35 PM EST [facility] - 07/28/2024 3:22 PM EST Over the counter supplements containing high doses of biotin may interfere with this assay. ??If interference is suspected, patients shoud be retested after refraining from biotin supplements for 72 hours. Miguel Quiles MD LAB BLOOD ORDERABLES Final Res ult Performing Organization Address City/[facility]/ZIP Co de Phone Number [facility] [address] [place] [address], [place] [phone] * Hepatitis B surface antibody (07/28/2024 12:19 [...] [facility] [address] [place] [address], [place] [phone] * Transfuse RBC (07/23/2024 6:19 PM EST) Only the most recent of2 resultswithin the time period is included. Lencho Stuatr MD BLOOD TRANSFUSION ORDERABLES Final Result * Insert Midline (07/23/2024 4:52 PM EST) Narrative Maggy Spencer RN - 07/23/2024 4:52 PM EST Maggy Spencer RN ? 07/23/2024 ??5:02 PM Midline Insertion Procedure Note Procedure: Insertion of 18g/10cm Bard Powerglide midline Lot: [id number] Exp: 2025-05-28 Indications: ??Difficult draw with frequent [...] Signed Date: 07/22/2024 17:00 ET Workstation ID: [id number] Transcribed By: Self Edit Transcribed Date: 07/22/2024 [...] of fentanyl administered during the procedure. Scanner: Anyvite [address] Dose reduction technique: AEC [...] of fentanyl administered during the procedure. Scanner: Anyvite [address] Dose reduction technique: AEC [...] Signed Date: 07/22/2024 17:00 ET Workstation ID: [id number] Transcribed By: Self Edit Transcribed Date: 07/22/2024 [...] Tissue exam (07/22/2024 3:13 PM EST) Addendum [facility] Kidney (addendum) This case was sent to [facility], Department of Pathology, [place], [place] (CLIA: [id number]). Their diagnosis is summarized as follows: Pathologic [...] report for full kidney biopsy diagnosis from [place], [place]) 08/12/2024 10:52 AM [facility] Addendum electronically signed by Mitchell Prince MD on 08/12/2024 at 10:52 AM Final Diagnosis Kidney, left-biopsies for routine, immunofluorescence and electron microscopy: -Submitted in toto to [facility] -See addendum report 08/12/2024 10:52 AM [facility] Gross Description A. Kidney, Left, : Labeled kidney L . Received fresh in saline are 3 perez-pink soft tissue cores, ranging from 0.7 x 0.1 cm to 1.7 x 0.1 cm, which are transfered to formalin for light microscopy, Mick fixative for Immunofluorescence, and Glutaraldehyde for electron microscopy. The specimen is entirely submitted to [facility] for analysis. ELOISE 08/12/2024 10:52 AM [facility] Disclaimer Unless otherwise specified, all tissue is 10% NB formalin fixed and paraffin embedded. 08/12/2024 10:52 AM [facility] Tissue Left kidney structure / Unknown 07/22/2024 3:13 PM EST 07/22/2024 3:39 PM EST us Fela Palomo MD LAB PATHOLOGY ORDERABLES Edited Result - Final [facility] [address] [place] [address], * (ABNORMAL) Prothrombin time with INR (07/22/2024 [...] ORDERABLES Final R esult Performing Organization Address City/[facility]/ZIP Co de Phone Number [facility] [address] [place] [address], [place] [phone] * SST tube (07/22/2024 10:53 AM EST) [...] [facility] [address] [place] [address], [place] [phone] * Lavender tube (07/22/2024 10:53 AM EST) Extra Tube Hold for add-ons. 07/22/2024 1:01 PM EST [facility] Comment:Auto resulted. Blood Venous blood specimen / Unknown 07/22/2024 10:53 AM EST 07/22/2024 11:25 AM EST Lencho Stuart MD LAB BLOOD ORDERABLES Final R esult [facility] [address] [place] [address], [place] [phone] * Activated Partial Thromboplastin Time - STAT (07/20/2024 2:30 PM EST) Only the most recent of2 resultswithin the time period is included. aPTT 30.0 24.1 - 39.3 sec LAB COAGULATION METHOD 07/20/2024 3:06 PM EST [facility] Blood Venous blood specimen / Unknown Venipuncture / Unknown 07/20/2024 2:30 PM EST 07/20/2024 2:52 PM EST Lencho Stuart MD LAB BLOOD ORDERABLES Final R esult Performing Organization Address City/[facility]/ZIP Co de Phone Number [facility] [address] [place] [address], [place] [phone] * (ABNORMAL) Microalbumin creatinine urine ratio (07/19/2024 [...] ORDERABLES Final Res ult Performing Organization Address [facility]/ZIP Co de Phone Number [facility] [address] [place] [address], [place] [phone] * Creatinine, urine, random (07/19/2024 12:01 PM EST) Only the most recent of2 resultswithin the time period is included. Pathologist [facility] [place] Creatinine, Urine 41.0 mg/dL LAB CHEMISTRY METHOD 07/19/2024 1:17 PM EST [facility] Urine Urine specimen obtained by clean catch procedure / Unknown Non-blood Collection / Unknown 07/19/2024 12:01 PM EST 07/19/2024 12:30 PM EST us Miguel Quiles MD LAB URINE ORDERABLES Final Res ult Performing Organization Address [facility] de Phone Number [facility] [address] [place] [address], [place] [phone] * (ABNORMAL) Parathyroid hormone related protein (07/19/2024 7:55 AM EST) [facility] PTH-related Protein (PTHrP) 24(H) 11 - 20 pg/mL 07/26/2024 4:37 PM EST [facility] Comment: This is a C-terminal PTH-RP assay. PTH-RP is useful in the differential diagnosis of hypercalcemia and levels may be elevated in patients with tumor-associated hypercalcemia. Elevated results may also be observed in patients with renal disease. This test was developed and its analytical performance characteristics have been determined by [employer]. It has not been cleared or approved by FDA. This assay has been validated pursuant to the CLIA regulations and is used for clinical purposes. Test Performed at: [employer] [address] ??[id number] ? I Bethany GUERRERO, PhD, NINA Blood Venous blood specimen / Unknown Venipuncture / Unknown 07/19/2024 7:55 AM EST 07/19/2024 7:55 AM EST us Jesus Manuel HEDRICK LAB BLOOD ORDERABLES Final Resu lt [facility] [place] [address] [address] [place] [address] * (ABNORMAL) Anti-neutrophilic cytoplasmic antibody (07/19/2024 6:52 [...] ORDERABLES Final Res ult Performing Organization Address City/[facility]/ZIP Co de Phone Number [facility] [address] [place] [address], * (ABNORMAL) Urinalysis microscopic only (07/18/2024 6:09 AM EST) RBC, Urine 10(H) 0 - 4 /HPF 07/18/2024 7:53 AM EST [facility] WBC, Urine >100(H) 0 - 4 /HPF 07/18/2024 7:53 AM EST [facility] Squamous Epithelial, Urine 10 0 - 60 /LPF 07/18/2024 7:53 AM EST [facility] Non-Squamous Epithelial, Urine 2-5 Transitional epithelial cells. /LPF 07/18/2024 7:53 AM EST [facility] Bacteria, Urine Many(A) Negative /HPF 07/18/2024 7:53 AM EST [facility] Other Casts, Urine Rare Coarse Granular casts. /LPF 07/18/2024 7:53 AM EST [facility] Urine Indwelling urinary catheter / Unknown Non-blood Collection / Unknown 07/18/2024 6:09 AM EST 07/18/2024 6:36 AM EST us Gian Crum MD LAB URINE ORDERABLES F inal Result Performing Organization Address [facility]/ZIP Co de Phone Number [facility] [address] [place] [address], [place] [phone] * (ABNORMAL) Calcium, ionized (07/18/2024 6:07 AM EST) Calcium Ionized 4.28(L) 4.50 - 5.30 mg/dL 07/18/2024 6:46 AM EST [facility] Blood Venous blood specimen / Unknown 07/18/2024 6:07 AM EST 07/18/2024 6:33 AM EST us Gian Crum MD LAB BLOOD ORDERABLES F inal Result Performing Organization Address [facility]/ZIP Co de Phone Number [facility] [address] [place] [address], [place] [phone] * Vascular US duplex lower extremity venous [...] Signed Date: 07/16/2024 12:33 ET Workstation ID: [id number] Transcribed By: Self Edit Transcribed Date: 07/16/2024 [...] Signed Date: 07/16/2024 12:33 ET Workstation ID: [id number] Transcribed By: Self Edit Transcribed Date: 07/16/2024 12:28 ET Gian Crum MD CV VASCULAR PROCEDURES Final Result * IR Insert Tunneled CVC wo Port or Pump More 5yrs Left (07/15/2024 3:36 PM EST) Anatomical Region Laterality Modality Left Interventional R adiology 07/15/2024 3:45 PM EST Impressions 07/15/2024 3:47 PM EST Successful placement of a 14 Lithuanian 23 cm dual-lumen cuffed tunneled dialysis catheter with the tip at the cavoatrial junction. This line may be used immediately. -------- FINAL REPORT -------- Dictated By: Fela Palomo Dictated Date: 07/15/2024 15:45 ET Assigned Physician: Fela Palomo Reviewed and Electronically Signed By: Fela Palomo Signed Date: 07/15/2024 15:47 ET Workstation ID: [id number] Transcribed By: Self Edit Transcribed Date: 07/15/2024 [...] The needle was exchanged for the 4 Lithuanian transition sheath. A 0.035 wire was then advanced through ??the sheath and into the inferior vena cava under fluoroscopy. The sheath was then exchanged for a 7 Lithuanian vascular dilator. Attention was then turned to the right upper chest and the appropriate area was anesthetized with 2% lidocaine. A small dermatotomy was performed and then a tunnel was created from the dermatotomy to the initial venous access site. The catheter was advanced through the tunnel. ??The initial venous access site was then serially dilated up to a 15 Lithuanian peel-away sheath. The catheter was then advanced [...] The needle was exchanged for the 4 Lithuanian transition sheath. A 0.035wire was then advanced through the sheath and into the inferior vena cavaunder fluoroscopy. The sheath was then exchanged for a 7 Lithuanian vasculardilator. Attention was then turned to the right upper chest and the appropriatearea was anesthetized with 2% lidocaine. A small dermatotomy was performedand then a tunnel was created from the dermatotomy to the initial venousaccess site. The catheter was advanced through the tunnel. The initialvenous access site was then serially dilated up to a 15 Lithuanian peel-awaysheath. The catheter was then advanced through [...] mGy IMPRESSION: Successful placement of a 14 Lithuanian 23 cm dual-lumen cuffed tunneleddialysis catheter with the tip at the cavoatrial junction. This line maybe used immediately. -------- FINAL REPORT -------- Dictated By: Fela Palomo Dictated Date: 07/15/2024 15:45 ET Assigned Physician: Fela Palomo Reviewed and Electronically Signed By: Fela Palomo Signed Date: 07/15/2024 15:47 ET Workstation ID: [id number] Transcribed By: Self Edit Transcribed Date: 07/15/2024 15:45 ET Chencho Wayne MD IM IR PROCEDURES Final [...] 14.5 LAB CHEMISTRY METHOD 07/15/2024 10:26 AM [facility] Albumin 3.3 3.2 - 5.0 [...] [facility] [address] [place] [address], * (ABNORMAL) RBC morphology review (07/15/2024 6:56 [...] [facility] [address] [place] [address], * Extractable Nuclear Antibodies Profile (07/14/2024 6:00 AM EST) SM Ab Negative Negative LAB CHEMISTRY METHOD 07/17/2024 12:29 PM EST [facility] SM Antibody Quant 2 <20 units LAB CHEMISTRY METHOD 07/17/2024 12:29 PM EST [facility] COMMUNICATIONS MANAGER Ab Negative Negative LAB CHEMISTRY METHOD 07/17/2024 12:29 PM EST [facility] COMMUNICATIONS MANAGER Antibody Quant 1 <20 units LAB CHEMISTRY METHOD 07/17/2024 12:29 PM EST [facility] Blood Venous blood specimen / Unknown 07/14/2024 6:00 AM EST 07/14/2024 6:35 AM EST us Gian Crum MD LAB BLOOD ORDERABLES F inal Result Performing Organization Address City/[facility]/ZIP Co de Phone Number [facility] [address] [place] [address], [place] [phone] * (ABNORMAL) C3 complement (07/14/2024 6:00 AM EST) Pathologist [facility] C3 Complement 78(L) 88 - 201 mg/dL LAB CHEMISTRY METHOD 07/14/2024 11:20 AM EST [facility] Blood Venous blood specimen / Unknown 07/14/2024 6:00 AM EST 07/14/2024 6:35 AM EST us Gian Crum MD LAB BLOOD ORDERABLES F inal Result Performing Organization Address [facility] Co de Phone Number [facility] [address] [place] [address], [place] [phone] * C4 complement (07/14/2024 6:00 AM EST) [facility] C4 Complement 18 16 - 47 mg/dL LAB CHEMISTRY METHOD 07/14/2024 11:20 AM EST [facility] Blood Venous blood specimen / Unknown 07/14/2024 6:00 AM EST 07/14/2024 6:35 AM EST us Gian Crum MD LAB BLOOD ORDERABLES F inal Result Performing Organization Address City/[facility]/ZIP Co de Phone Number [facility] [address] [place] [address], [place] [phone] * (ABNORMAL) Sedimentation rate (07/13/2024 6:38 AM EST) [facility] Sed Rate 84(H) 0 - 30 mm/hr LAB HEMETOLOGY METHOD 07/13/2024 7:32 AM EST [facility] Blood Venous blood specimen / Unknown Venipuncture / Unknown 07/13/2024 6:38 AM EST 07/13/2024 6:51 AM EST Gian Crum MD LAB BLOOD ORDERABLES F inal Result [facility] [address] [place] [address], [place] [phone] * Uric acid (07/13/2024 6:38 AM EST) Uric Acid 7.5 3.1 - 7.8 mg/dL LAB CHEMISTRY METHOD 07/13/2024 7:44 AM EST [facility] Blood Venous blood specimen / Unknown Venipuncture / Unknown 07/13/2024 6:38 AM EST 07/13/2024 6:50 AM EST Chencho Wayne MD LAB BLOOD ORDERABLES Final Resu lt [facility] [address] [place] [address], [place] [phone] * (ABNORMAL) Protein and creatinine with ratio, urine (07/12/2024 3:27 PM EST) Protein, Urine 192 mg/dL LAB CHEMISTRY METHOD 07/12/2024 6:44 PM [facility] Prot/Creat, Ur 3.00(H) <=0.20 mg/mg creat LAB CHEMISTRY METHOD 07/12/2024 6:44 PM EST [facility] Creatinine, Urine 64.0 mg/dL LAB CHEMISTRY METHOD 07/12/2024 6:44 PM [facility] Urine Urine specimen obtained by clean catch procedure / Unknown Non-blood Collection / Unknown 07/12/2024 3:27 PM EST 07/12/2024 4:10 PM EST Chencho Wayne MD LAB URINE ORDERABLES Final Resu lt Performing Organization Address [facility] Co de Phone Number [facility] [address] [place] [address], [place] [phone] * Sodium, urine, random (07/12/2024 3:27 PM EST) Sodium, Ur 34 mmol/L LAB CHEMISTRY METHOD 07/12/2024 6:44 PM EST [facility] Urine Urine specimen obtained by clean catch procedure / Unknown Non-blood Collection / Unknown 07/12/2024 3:27 PM EST 07/12/2024 4:10 PM EST Aye HEDRICK LAB URINE ORDERABLES Final Re sult Performing Organization Address [facility] Co de Phone Number [facility] [address] [place] [address], [place] [phone] * Osmolality, urine (07/12/2024 3:27 PM EST) Osmolality, Urine 397 300 - 1,300 mOsm/kg LAB CHEMISTRY METHOD 07/12/2024 5:57 PM EST [facility] Urine Urine specimen obtained by clean catch procedure / Unknown Non-blood Collection / Unknown 07/12/2024 3:27 PM EST 07/12/2024 4:10 PM EST Aye HEDRICK LAB URINE ORDERABLES Final Re sult Performing Organization Address [facility]/ZIP Co de Phone Number [facility] [address] [place] [address], [place] [phone] * CT Chest wo Contrast (07/12/2024 12:48 PM EST) Anatomical Region Laterality Modality Body Computed Tomogra phy 07/12/2024 1:07 PM EST Impressions 07/12/2024 1:19 PM EST Impression: 1. No significant change in an irregular juxtapleural nodular opacity in the right lung apex. Malignancy is not excluded. 2. No developing lymphadenopathy. 3. Small bilateral pleural effusions, new. Starr HEDRICK ([id number]) -------- FINAL REPORT -------- Dictated By: Edilia Durbin Dictated Date: 07/12/2024 13:07 ET Assigned Physician: Edilia Durbin Reviewed and Electronically Signed By: Edilia Durbin Signed Date: 07/12/2024 13:19 ET Workstation ID: [id number] Transcribed By: Self Edit Transcribed Date: 07/12/2024 13:07 ET Narrative 07/12/2024 1:19 PM EST History: Abnormal chest radiograph. The patient underwent nondiagnostic CT- guided biopsy of the right apical lung nodule on 05/23/24. Comparison: Thoracic CT 06/17/24, 03/21/24 Technique: Helical volumetric imaging of the thorax was performed without IV contrast. DLP: 613.10 mGy/cm [employer]gent [employer] VCT Iterative reconstruction technique Findings: Respiratory motion [...] was performed withoutIV contrast. DLP: 613.10 mGy/cm [employer] VCT Iterative reconstruction technique Findings: Respiratory motion [...] Small bilateral pleural effusions, new. Telerad RYLEY ([id number]) -------- FINAL REPORT -------- Dictated By: Edilia Durbin Dictated Date: 07/12/2024 13:07 ET Assigned Physician: Edilia Durbin Reviewed and Electronically Signed By: Edilia Durbin Signed Date: 07/12/2024 13:19 ET Workstation ID: [id number] Transcribed By: Self Edit Transcribed Date: 07/12/2024 [...] [facility] [address] [place] [address], * (ABNORMAL) C-reactive protein (07/12/2024 6:19 AM EST) [facility] C-Reactive Protein 16.60(H) <=0.50 mg/dL LAB CHEMISTRY METHOD 07/12/2024 10:35 AM EST [facility] Blood Venous blood specimen / Unknown Venipuncture / Unknown 07/12/2024 6:19 AM EST 07/12/2024 6:56 AM EST us Gian Crum MD LAB BLOOD ORDERABLES F inal Result Performing Organization Address City/[facility]/ZIP Co de Phone Number [facility] [address] [place] [address], [place] [phone] * (ABNORMAL) Lipase (07/12/2024 6:19 AM EST) Pathologist [facility] Lipase <10(L) 13 - 75 unit/L LAB CHEMISTRY METHOD 07/12/2024 3:26 PM [facility] Blood Venous blood specimen / Unknown Venipuncture / Unknown 07/12/2024 6:19 AM EST 07/12/2024 6:56 AM EST us Gian Crum MD LAB BLOOD ORDERABLES F inal Result Performing Organization Address City/[facility]/ZIP Co de Phone Number [facility] [address] [place] [address], [place] [phone] * Lipid panel with reflex to direct LDL (05/31/2024 9:22 AM EST) Cholesterol 131 0 - 200 mg/dL LAB CHEMISTRY METHOD 05/31/2024 12:51 PM [facility] Triglycerides 113 0 - 150 mg/dL LAB CHEMISTRY METHOD 05/31/2024 12:51 PM [facility] HDL 60 >=40 mg/dL LAB CHEMISTRY METHOD 05/31/2024 12:51 PM [facility] LDL Calculated 48 0 - 100 mg/dL LAB CHEMISTRY METHOD 05/31/2024 12:51 PM [facility] VLDL Cholesterol Hunter 22.6 mg/dL LAB CHEMISTRY METHOD 05/31/2024 12:51 PM EST [facility] Non HDL Chol. (LDL+VLDL) 71 <145 mg/dL LAB CHEMISTRY METHOD 05/31/2024 12:51 PM EST [facility] Chol/HDL Ratio 2.2 0.0 - 4.4 LAB CHEMISTRY METHOD 05/31/2024 12:51 PM EST [facility] Blood Venous blood specimen / Unknown Venipuncture / Unknown 05/31/2024 9:22 AM EST 05/31/2024 9:22 AM EST us Kayleigh Pedraza NP LAB BLOOD ORDERABLES Final Resul t [facility] [address] [place] [address], [place] [phone] * [facility] DEXA AXIAL SKELETON (04/15/2018 10:29 AM EDT) Anatomical Region Laterality Modality Mammography 04/15/2018 9:39 AM EDT Narrative 04/15/2018 10:29 AM EDT [facility] Diagnostic Imaging Department [address] [place] [address] Patient: ??CONTRERAS,ANA A ?/Age/Sex: 1945 - 73 - F Unit#: ??[id number] ? Location/Status: ??SPDIMAM/REG CLI ? Mnemonic/Ordering Site: ??MAMDEXAAX/SPMAM Ordering Physician: ??VIVIEN SANTIZO MD Sally Dexa Axial Skeleton - [...] probability of hip fracture of 2.2%. Code 02262 Dictating Physician: ??JAILYN BARAHONA MD Electronically Signed by: ??JAILYN BARAHONA MD Dic Date/Time: ??04/15/18 1028 Sign date/Time: ??04/15/18 1029 Procedure Note Jailyn Barahona MD - 06/17/2022 [facility] Diagnostic Imaging Department [address] [place] [address] Patient: ANA CONTRERAS /Age/Sex: 1945 - 73 - F Unit#: [id number] Location/Status: SPDIMAM/REG CLI Mnemonic/Ordering Site: MAMDEXAAX/SPMAM Ordering Physician: VIVIEN SANTIZO MD [facility] Dexa Axial Skeleton - 04/15/18 1004 HISTORY: The patient is a 73-year-old [...] density of the femurs bilaterally is 0.854 gm/at3gflkl is 85% of that of young normals [...] probability of hip fracture of 2.2%. 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
[2024-10-10 06:20] LABS: Basophils Percent Auto 0.1 % (0-2); Hematocrit 26.6 % (37.0-47.0); Hemoglobin 8.7 g/dl (12.0-16.0); Imm Gran Abs Auto 0.28 X10*3/uL (0.00-0.03); Lymphocytes Absolute Auto 0.6 X10*3/uL (1.2-4.9); Lymphocytes Percent Auto 8.5 % (20-40); Mean Corpuscular HGB Conc 32.7 g/dl (31.0-35.0); Mean Corpuscular Hemoglobin 31.6 pg (27.0-33.0); Mean Corpuscular Volume 96.7 fL (80.0-98.0); Mean Platelet Volume 10.6 fL (9.4-12.3); Monocytes Absolute Auto 0.4 X10*3/uL (0.1-1.2); Monocytes Percent Auto 5.5 % (2-11); Neutrophils Absolute Auto 5.8 x10*3/uL (2.0-8.3); Neutrophils Percent Auto 81.9 % (45-73); Platelet Count 153 X10*3/uL (160-400); Red Blood Count 2.75 X10*6/uL (4.20-5.50); Red Cell Distribution Width 16.3 % (11.0-16.0); White Blood Count 7.1 X10*3/uL (4.8-10.8)
[2024-10-10 07:07] LABS: Anion Gap 18 (12-20); Blood Urea Nitrogen 59 mg/dL (9-16); Calcium 7.7 mg/dL (8.4-10.2); Carbon Dioxide 18 mmol/L (22-29); Chloride 103 mmol/L (96-108); Estimated Glomerular Filt Rate 14; Potassium 3.6 mmol/L (3.3-5.1); Sodium 135 mmol/L (135-145)
[2024-10-10 07:26] LABS: Glucose Random 387 mg/dL (60-115)
== END 2024-10-10 05:44 | disposition home or self-care (01) ==
LOC: HO.MMNH1L 05:43
PROVIDERS: Visit Provider Family Medicine
DX: E11.9 Type 2 diabetes mellitus without complications (principal)
CPT/HCPCS: 36415; 80048; 85025

== ENCOUNTER 2024-10-17 06:07 | Outpatient (REF) | payer MEDICARE, SELFPAY ==
[2024-10-17 05:41] LABS: MANUAL DIFF FLAG NO
[2024-10-17 06:20] LABS: Basophils Percent Auto 0.2 % (0-2); Hematocrit 25.1 % (37.0-47.0); Hemoglobin 8.3 g/dl (12.0-16.0); Imm Gran Abs Auto 0.23 X10*3/uL (0.00-0.03); Imm Gran Pct Auto 3.9 % (0.0-0.4); Lymphocytes Absolute Auto 0.8 X10*3/uL (1.2-4.9); Lymphocytes Percent Auto 13.1 % (20-40); Mean Corpuscular HGB Conc 33.1 g/dl (31.0-35.0); Mean Corpuscular Volume 96.9 fL (80.0-98.0); Mean Platelet Volume 10.4 fL (9.4-12.3); Monocytes Absolute Auto 0.7 X10*3/uL (0.1-1.2); Monocytes Percent Auto 11.1 % (2-11); Neutrophils Absolute Auto 4.3 x10*3/uL (2.0-8.3); Neutrophils Percent Auto 71.7 % (45-73); Platelet Count 181 X10*3/uL (160-400); Red Blood Count 2.59 X10*6/uL (4.20-5.50); Red Cell Distribution Width 15.5 % (11.0-16.0); White Blood Count 5.9 X10*3/uL (4.8-10.8)
--- OUTSIDE RECORDS SUMMARY | 2024-10-17 06:22 | XMS_ITS | Clinical Summary ---
Author Organization [facility] Address [address] [place] [address] Care Team Providers Care Customs Inspector Name Role Phone Eloisa Vázquez DO Primary Care Provider [phone] Allergies No known active allergies Medications cetirizine [...] me and use 9 units 5 Active Accu-Chek Softclix Lancets CHECK BLOOD SUGAR TWICE DAILY 200 each 2 5 Active blood sugar diagnostic (Accu-Chek Kait Plus test strp) test strip CHECK BLOOD SUGAR TWICE DAILY 200 strip 2 5 Active blood sugar diagnostic (Accu-Chek Kait Plus test strp) test strip 5 Active Accu-Chek Softclix Lancets 5 Active cephalexin (KEFLEX) 500 mg capsule Take 1 [...] Kana Fernández or Maribeth d/t onsite HD. [facility] accepting w family to provide HD [...] how their size, shape, and change management specialist time affect her level of suspicion for [...] weeks. She will need to see her rink rat prior to procedure. Hypertension 06/01/2024 Hyperlipidemia 06/01/2024 [...] complication, without long-term current use of insulin ([facility] V24, [facility] V28) 06/01/2024 Resolved Problems Problem Noted Date Diagnosed Date Resolved Date Acute encephalopathy 07/08/2024 025 Encounters Date Type Department Care Team Description 09/12/2024 5:08 PM EDT - 09/13/2024 12:10 AM EDT Emergency [facility] [address] [place] [phone] Anthony Sparks MD Fall, initial encounter (Primary Dx); Acute cystitis without hematuria Discharge Disposition: Home or Self Care 09/06/2024 4:40 PM EDT Office Visit Endocrinology [address] [phone] Kathy Michelle PA Type 2 diabetes mellitus without complication, without long-term current use of insulin ([facility] V24, [facility] V28) (Primary Dx); CKD (chronic kidney disease) stage 4, GFR 15-29 ml/min ([facility] V24, [facility] V28); Primary hypertension 08/23/2024 3:00 PM EST Office Visit Gastroenterology - [address] [facility] [address] [phone] Josiane Smith, NATUROPATHIC DOCTOR Iron deficiency anemia, unspecified iron deficiency anemia type; History of cancer of unknown primary site 08/22/2024 8:30 AM EST - 08/22/2024 11:59 PM EST Hospital Encounter [facility] [address] [place] [phone] Chencho Wayne MD Crescentic glomerulonephritis (Primary Dx); Cresentic glomerulonephritis of transplanted kidney Discharge Disposition: Home or Self Care 08/22/2024 Social Work [facility] [address] [place] [phone] Haley Andrews LMSW 08/15/2024 1:30 PM EST Office Visit Thoracic Surgery - [place] [address] [facility] [address] [place] [phone] Cecily Montez MD Pulmonary nodule (Primary Dx); Lung mass 08/11/2024 Telephone [facility] [address] [phone] Nalini Clark RN 08/10/2024 10:00 AM EST Office Visit [facility] Hematology Oncology [address] [place] [phone] Jaime Grimaldo MD Lung mass (Primary Dx); Normocytic anemia; Chronic renal failure, stage 5 (CMS/HCC V24, CMS/HCC V28) 08/09/2024 Telephone Nephrology [address] [phone] Chencho Wayne MD provider call back 08/05/2024 11:46 AM EST Anesthesia Event [facility] Main OR [address] [place] [phone] Monroe Kim MD 08/05/2024 11:30 AM EST - 08/05/2024 1:30 PM EST Surgery [facility] OR [address] [place] [phone] Cecily Montez MD Navigation bronchoscopy/EBUS [72223 (CPT??) +2 more] 08/01/2024 [facility] [address] [facility] [place] [phone] Eloisa Vázquez DO Forms/questionnaires (PFML) 07/08/2024 10:31 AM EST - 08/06/2024 1:09 PM EST Hospital Encounter [facility]rology Unit [address] [place] [phone] Jj Wolfe MD Flores, Carlos M, MD Japaridze, Anna, MD Santoyo-Pachec o, Omar D, MD Kokosadze, Estate, MD Zipagan, James T, MD Seralathan, Steve, MD Anemia, unspecified type (Primary Dx); Hyponatremia; Acute on chronic renal insufficiency; Acute encephalopathy; Bilateral leg edema; Pulmonary nodule Discharge Disposition: Longterm Facility from Last 3 Months Surgical History [...] V28) LEFT LEG History of renal dialysis CARSON Hong [facility] Family History Medical History Relation [...] COPD Brother 3 Alive COPD Brother 4 [place] Daughter Alive Healthy Father (Age 54) [place] Mother (Age 93) Osteoporos is, HTN, Arthritis [...] 10/17/2024 1:20 PM EDT Telemedicine Endocrinology - [facility] [address] [place] [phone] Kathy Michelle PA [address] [place] [address] 11/11/2024 11:00 AM EDT Ancillary Procedure [facility] [address] [place] [phone] 11/14/2024 11:30 AM EDT Appointment [facility] CT Scan [address] [place] [phone] 11/18/2024 2:15 PM EDT Office Visit Internal Medicine - [facility] [place] [phone] Eloisa Vázquez, DO [address] [place] [address] 12/01/2024 10:00 AM EDT Office Visit Thoracic Surgery - [place] [address] [facility] [address] [place] [phone] Cecily Montez MD [address] [facility] [address] [facility] [address] [place] [address] Health Maintenance Due Date Last Done Comments [...] this topic Medical Devices Implanted Type Area Management Department Chair Device Identifier Shelf Expiration Date Model / Serial / Lot Cath Dial W/Vt Kt 14.2mi41is Palindrome Precision - [id number] - [id number] Implanted:Qty: 1 on 07/15/2024 by Fela Palomo MD at [facility] Dialysis Catheters Left: Chest Wall [employer] [id number] 09/26/2028 [id number] 40P / [id number] / [id number] Sponge Surgifoam Gel 12 X 7mm - [id number] - [id number] Implanted:Qty: 1 on 05/23/2024 by Fela Palomo MD at [facility] Hemostasis Right: Lung J [employer] [id number] 08/27/20271971 / [id number] / Sponge Surgifoam Gel 12 X 7mm - [id number] - [id number] Implanted:Qty: 1 on 07/22/2024 by Fela Palomo MD at [facility] Hemostasis Left: Kidney JNJ [employer] [id number] 05/24/20281971 [id number] / Procedures Procedure Name Priority Date/Time Associated [...] ENDOTRACHEAL(NO CHARGE) Routine 08/05/2024 12:08 PM EST SC BRONCHOSCOPY RIGID/FLEXIBLE W/EBUS >=3 MEDIASTINAL/HILAR LYMPH NODES 08/05/2024 11:46 AM EST Pulmonary nodule SC BRONCHOSCOPY INCL FLUROSCOPIC GUIDANCE W PLCMNT FIDUCIAL MARKER SGL/MULT 08/05/2024 11:46 AM EST Pulmonary nodule SC BRONCHOSCOPY RIGID/FLEXIBLE INCL FLUORO W/THERAPY ASPIRATION INITIAL [...] METABOLIC PANEL Routine 07/19/2024 6:52 AM EST HEMOGLOBIN A1C Routine 05/31/2024 9:22 AM EST Cataract, diabetic (CMS/HCC V24, CMS/HCC V28) LIPID PANEL WITH REFLEX TO DIRECT LDL Routine 05/31/2024 9:22 AM EST Iron deficiency anemia, unspecified Cataract, diabetic (CMS/HCC V24, CMS/HCC V28) Hyperlipemia [facility] [place] DEXA AXIAL SKELETON Routine 04/15/2018 10:29 AM EDT Encounter for screening for osteoporosis from Last 3 Months or Most Recently Relevant to Health Maintenance Results * ECG-Annotated (09/13/2024) us Provider Onbase MD ECG ORDERABLES Final Result * ECG 12 lead (09/12/2024 9:12 PM EDT) Only the most recent of2 resultswithin the time period is included. Ventricular Rate ECG 83 BPM GEMUSE Atrial Rate 83 BPM GEMUSE P-R Interval 178 ms GEMUSE QRS Duration 130 ms GEMUSE Q-T Interval 394 ms GEMUSE QTc 462 ms GEMUSE P Wave Nicolaus 66 degrees GEMUSE R Nicolaus 15 degrees GEMUSE T Nicolaus 11 degrees GEMUSE ECG Interpretation Sinus rhythm with Premature atrial complexes Right bundle branch block Abnormal ECG When compared with ECG of 12-SEP-2024 21:12, No significant change was found Confirmed by MD Navarro Christopher ([id number]) on 09/14/2024 10:02:49 AM GEMUSE 09/12/2024 9:12 PM EDT 09/14/2024 10:02 AM EDT us Jose HEDRICK ECG ORDERABLES Final Result Performing Organization Address [facility] Co de Phone Number GEMUSE * (ABNORMAL) Troponin I high sensitivity (NOW and then in 1 hour) (09/12/2024 8:27 PM EDT) Only the most recent of2 resultswithin the time period is included. [facility] High Sensitivity Troponin I 110(H) <=54 ng/L LAB CHEMISTRY METHOD 09/12/2024 10:11 PM EDT [facility] Blood Venous blood specimen / Unknown Venipuncture / Unknown 09/12/2024 8:27 PM EDT 09/12/2024 9:33 PM EDT Narrative [facility] - 09/12/2024 10:11 PM EDT High levels of biotin in samples may falsely decrease hsTroponin values. ??Use caution when interpreting hsTroponin results in patients taking biotin who exhibit renal impairment (eGFR <60) or in patients taking more than 20 mg/day of biotin. us Madan Braga MD LAB BLOOD ORDERABLES Final Resu lt Performing Organization Address [facility]/ZIP Co de Phone Number [facility] [address] [place] [address], [place] [phone] * CT Cervical Spine wo Contrast (09/12/2024 [...] a left-sided central venous line. Procedure Note Minnie-Dennise Main MD - 09/12/2024 INDICATION: trauma, neck [...] MD on 09/12/2024 20:55:04 Madan Braga MD IMG CT PROCEDURES Final Result * CT Head [...] MD on 09/12/2024 20:56:04 Madan Braga MD IMG CT PROCEDURES Final Result * (ABNORMAL) Urinalysis with reflex microscopic and culture (09/12/2024 6:38 PM EDT) Specific [place] Urine 1.025 1.003 - 1.030 LAB URINALYSIS - AUTOMATED METHOD 09/12/2024 8:45 PM [facility] pH, Urine 6.5 5.0 - 8.0 pH LAB URINALYSIS - AUTOMATED METHOD 09/12/2024 8:45 PM [facility] Leukocytes, Urine Moderate(A) Negative LAB URINALYSIS - AUTOMATED METHOD 09/12/2024 8:45 PM [facility] Nitrite, Urine Negative Negative LAB URINALYSIS - AUTOMATED METHOD 09/12/2024 8:45 PM [facility] Protein, Urine >=300(A) <=Trace mg/dL LAB URINALYSIS - AUTOMATED METHOD 09/12/2024 8:45 PM [facility] Glucose, Urine 100(A) Negative mg/dL LAB URINALYSIS - AUTOMATED METHOD 09/12/2024 8:45 PM [facility] Ketones, Urine Negative Negative mg/dL LAB URINALYSIS - AUTOMATED METHOD 09/12/2024 8:45 PM EDT [facility] Urobilinogen , Urine 0.2 0.2 - 1.0 mg/dL LAB URINALYSIS - AUTOMATED METHOD 09/12/2024 8:45 PM EDT [facility] Bilirubin, Urine Negative Negative LAB URINALYSIS - AUTOMATED METHOD 09/12/2024 8:45 PM EDT [facility] Blood, Urine Large(A) Negative LAB URINALYSIS - AUTOMATED METHOD 09/12/2024 8:45 PM EDT [facility] RBC, Urine 10(H) 0 - 4 /HPF 09/12/2024 8:45 PM EDT [facility] WBC, Urine >100(H) 0 - 4 /HPF 09/12/2024 8:45 PM EDT [facility] Squamous Epithelial, Urine 50 0 - 60 /LPF 09/12/2024 8:45 PM EDT [facility] Non-Squamous Epithelial, Urine 2-5 Transitional epithelial cells. /LPF 09/12/2024 8:45 PM EDT [facility] Bacteria, Urine Many(A) Negative /HPF 09/12/2024 8:45 PM EDT [facility] Hyaline Casts, Urine 3 0 - 3 /LPF 09/12/2024 8:45 PM EDT [facility] Other Casts, Urine 2-5 Coarse Granular casts. Rare Fine Granular casts. Rare Waxy casts. /LPF 09/12/2024 8:45 PM EDT [facility] Urine Urine specimen obtained by clean catch procedure / Unknown Non-blood Collection / Unknown 09/12/2024 6:38 PM EDT 09/12/2024 7:59 PM EDT us Anthony Sparks MD LAB URINE ORDERABLES Final Result [facility] [address] [place] [address], [place] [phone] * Robertson urine culture tube (09/12/2024 6:38 PM EDT) Extra Tube Hold for add-ons. 09/12/2024 9:01 PM EDT [facility] Comment:Auto resulted. Urine Urine specimen obtained by clean catch procedure / Unknown Non-blood Collection / Unknown 09/12/2024 6:38 PM EDT 09/12/2024 7:59 PM EDT Anthony Sparks MD LAB URINE ORDERABLES Final Result [facility] [address] [place] [address], [place] [phone] * (ABNORMAL) Culture urine (09/12/2024 6:38 PM EDT) Culture, Urine >100,000 CFU/mL Pseudomonas aeruginosa(A) KIRILL 09/16/2024 9:53 AM EDT [facility] Comment: This is an edited result. Previous organism was Gram negative bacilli on 09/15/2024 at 1216 EDT. Culture, Urine >100,000 CFU/mL Enterococcus faecalis(A) KIRILL 09/16/2024 9:53 AM EDT [facility] Comment: The organism [...] LAB MICROBIOLOGY - GENERAL ORDERABLES Final Result [facility] [address] [place] [address], [place] [phone] * (ABNORMAL) CBC auto differential (09/12/2024 6:22 PM EDT) Only the most recent of13 resultswithin the time period is included. [facility] Signature WBC 6.9 4.8 - 10.8 K/mcL LAB HEMETOLOGY METHOD 09/12/2024 6:51 PM EDT [facility] RBC 2.80(L) 3.80 - 4.80 M/mcL LAB HEMETOLOGY METHOD 09/12/2024 6:51 PM EDT [facility] Hemoglobin 8.2(L) 11.5 - 16.0 g/dL LAB HEMETOLOGY METHOD 09/12/2024 6:51 PM EDT [facility] Hematocrit 25.2(L) 35.0 - 47.0 % LAB HEMETOLOGY METHOD 09/12/2024 6:51 PM EDT [facility] MCV 90.0 79.0 - 98.0 FL LAB HEMETOLOGY METHOD 09/12/2024 6:51 PM EDT [facility] MCH 29.3 27.0 - 32.0 pcg LAB HEMETOLOGY METHOD 09/12/2024 6:51 PM EDT [facility] MCHC 32.5 32.0 - 37.0 g/dL LAB HEMETOLOGY METHOD 09/12/2024 6:51 PM EDT [facility] RDW 20.2(H) 11.0 - 15.0 % LAB HEMETOLOGY METHOD 09/12/2024 6:51 PM EDT [facility] Platelets 179 130 - 400 K/mcL LAB HEMETOLOGY METHOD 09/12/2024 6:51 PM EDT [facility] MPV 10.4 7.0 - 11.0 FL LAB HEMETOLOGY METHOD 09/12/2024 6:51 PM EDT [facility] NRBC 0.0 <1.0 % LAB HEMETOLOGY METHOD 09/12/2024 6:51 PM EDT [facility] NRBC Absolute 0.00 <0.10 K/mcL LAB HEMETOLOGY METHOD 09/12/2024 6:51 PM EDT [facility] Neutrophils Relative 88.7 % LAB HEMETOLOGY METHOD 09/12/2024 6:51 PM EDT [facility] Lymphocytes Relative 6.7 % LAB HEMETOLOGY METHOD 09/12/2024 6:51 PM EDT [facility] Monocytes Relative 3.0 % LAB HEMETOLOGY METHOD 09/12/2024 6:51 PM EDT [facility] Eosinophils Relative 0.1 % LAB HEMETOLOGY METHOD 09/12/2024 6:51 PM EDT [facility] Basophils Relative 0.0 % LAB HEMETOLOGY METHOD 09/12/2024 6:51 PM EDT [facility] Immature Granulocytes Relative 1.5 % LAB HEMETOLOGY METHOD 09/12/2024 6:51 PM EDT [facility] Neutrophils Absolute 6.11 1.50 - 7.00 K/mcL LAB HEMETOLOGY METHOD 09/12/2024 6:51 PM EDT [facility] Lymphocytes Absolute 0.46(L) 1.00 - 5.00 K/mcL LAB HEMETOLOGY METHOD 09/12/2024 6:51 PM EDT [facility] Monocytes Absolute 0.21 0.20 - 1.00 K/mcL LAB HEMETOLOGY METHOD 09/12/2024 6:51 PM EDT [facility] Eosinophils Absolute 0.01 0.00 - 0.50 K/[facility] LAB HEMETOLOGY METHOD 09/12/2024 6:51 PM EDT [facility] Basophils Absolute 0.00 0.00 - 0.20 K/[facility] LAB HEMETOLOGY METHOD 09/12/2024 6:51 PM EDT [facility] Immature Granulocytes Absolute 0.10(H) 0.00 - 0.03 K/mcL LAB HEMETOLOGY METHOD 09/12/2024 6:51 PM EDT [facility] Blood Venous blood specimen / Unknown Venipuncture / Unknown 09/12/2024 6:22 PM EDT 09/12/2024 6:42 PM EDT us Madan Braga MD LAB BLOOD ORDERABLES Final Resu lt [facility] [address] [place] [address], * (ABNORMAL) Basic Metabolic Panel (BMP) (09/12/2024 6:22 PM EDT) Only the most recent of15 resultswithin the time period is included. Sodium 137 133 - 145 mmol/L LAB CHEMISTRY METHOD 09/12/2024 7:15 PM EDT [facility] Potassium 4.1 3.5 - 5.5 mmol/L LAB CHEMISTRY METHOD 09/12/2024 7:15 PM EDT [facility] Chloride 103 96 - 110 mmol/L LAB CHEMISTRY METHOD 09/12/2024 7:15 PM EDT [facility] CO2 24 21 - 32 mmol/L LAB CHEMISTRY METHOD 09/12/2024 7:15 PM EDT [facility] Anion Gap 10 3 - 11 LAB CHEMISTRY METHOD 09/12/2024 7:15 PM T [facility] Glucose 204(H) 70 - 100 mg/dL LAB CHEMISTRY METHOD 09/12/2024 7:15 PM EDT [facility] BUN 30(H) 5 - 25 mg/dL LAB CHEMISTRY METHOD 09/12/2024 7:15 PM [facility] Creatinine 2.36(H) 0.50 - 1.10 mg/dL LAB CHEMISTRY METHOD 09/12/2024 7:15 PM [facility] eGFR 20(L) >=60 mL/min/1. 73m2 LAB CHEMISTRY METHOD 09/12/2024 7:15 PM EDT [facility] Comment:Calculation based on the??Chronic Kidney Disease Epidemiology Collaboration (CKD-EPI) equation refit??without adjustment for race. BUN/Creatinine Ratio 12.7 LAB CHEMISTRY METHOD 09/12/2024 7:15 PM T [facility] Calcium 8.0(L) 8.5 - 10.5 mg/dL LAB CHEMISTRY METHOD 09/12/2024 7:15 PM [facility] Blood Venous blood specimen / Unknown Venipuncture / Unknown 09/12/2024 6:22 PM EDT 09/12/2024 6:42 PM EDT us Madan Braga MD LAB BLOOD ORDERABLES Final Resu lt [facility] [address] [place] [address], * (ABNORMAL) POCT Glucose, blood (08/06/2024 11:07 AM EST) Only the most recent of73 resultswithin the time period is included. Glucose POCT 187(H) 70 - 100 mg/dL 08/06/2024 11:09 AM EST [facility] Blood Capillary blood specimen / Unknown 08/06/2024 11:07 AM EST 08/06/2024 11:10 AM EST Steve Cruz MD LAB POINT OF CA RE TEST DOCKED DEVICE UNSOLICITED RESULTS Final Result [facility] [address] [place] [address], * XR Chest 1 View (08/05/2024 1:43 [...] Signed Date: 08/05/2024 13:49 ET Workstation ID: [id number] Transcribed By: Self Edit Transcribed Date: 08/05/2024 [...] Signed Date: 08/05/2024 13:49 ET Workstation ID: [id number] Transcribed By: Self Edit Transcribed Date: 08/05/2024 13:46 ET us Cecily Montez MD IMG XR PROCEDURES Final Result * Culture bronchial with gram stain (08/05/2024 12:32 PM EST) Bronchial Culture No growth at 3 days 08/08/2024 9:42 AM EST [facility] Gram Stain Result No polymorphonuclear leukocytes, No epithelial cells, and No organisms noted 08/08/2024 9:42 AM EST [facility] Wash Structure of upper lobe of right lung / Unknown 08/05/2024 12:32 PM EST 08/05/2024 1:17 PM EST us Cecily Montez MD LAB MICROBIOLOGY - GENERAL ORDER SYLVAIN Final Result Performing Organization Address [facility] de Phone Number [facility]) [facility] [address] [place] [address], * Concentration (08/05/2024 12:32 PM EST) AFB Concentration Performed 5:05 PM EDT [facility] Wash Structure of upper lobe of right lung / Unknown 08/05/2024 12:32 PM EST 08/05/2024 1:17 PM EST Narrative [facility] - 09/19/2024 5:05 PM EDT Performed at: ??01 - [facility] [address] ??[id number] Promotion Writer: Diane Belle MD, Phone: ??[phone] us Cecily Montez MD LAB BLOOD ORDERABLES Edited Resu lt - Final Performing Organization Address City/[facility]/ZIP Co de Phone Number [facility] * Culture, [...] PM EDT Performed at: ??01 - [facility] [address] ??[id number] Promotion Writer: Diane Belle MD, Phone: ??[phone] Cecily Montez MD LAB MICROBIOLOGY - GENERAL ORDER SYLVAIN Final Result Performing Organization Address [facility] de Phone Number [facility] * Acid fast bacilli stain (08/05/2024 12:32 PM EST) AFB Stain Result No Acid fast bacilli seen on direct smear (Fuchsin method, 1000x) No Acid Fast Bacilli seen on direct smear 08/05/2024 2:18 PM EST [facility] Wash Structure of upper lobe of right lung / Unknown 08/05/2024 12:32 PM EST 08/05/2024 1:17 PM EST us Cecily Montez MD LAB MICROBIOLOGY - GENERAL ORDER SYLVAIN Final Result Performing Organization Address [facility] Co de Phone Number [facility] [address] [place] [address], [place] [phone] * Culture fungal, other (08/05/2024 12:32 PM EST) Culture, Fungus Negative for Fungus after 4 Weeks 09/05/2024 8:16 AM EDT [facility] Wash Structure of upper lobe of right lung / Unknown 08/05/2024 12:32 PM EST 08/05/2024 1:17 PM EST Cecily Montez MD LAB MICROBIOLOGY - GENERAL ORDER SYLVAIN Final Result [facility] [address] [place] [address], * Non-gynecologic cytology (08/05/2024 12:20 PM EST) [...] node elements present. 08/09/2024 1:04 PM EST [facility] Specimen A Adequacy Satisfactory for evaluation 08/09/2024 1:04 PM EST [facility] Specimen B Adequacy Satisfactory for evaluation 08/09/2024 1:04 PM EST [facility] Specimen C Adequacy Satisfactory for evaluation 08/09/2024 1:04 PM EST [facility] Specimen D Adequacy [...] Technical cytopathology services provided by [facility], at [address] [place] [address] (CLIA # [id number]/Gladys Prnice MD, Genomics Scientist.) 08/09/2024 1:04 PM EST [facility] ([facility] Brushing, function (observable entity) Structure [...] LAB CYTOLOGY ORDERABLES Final Re sult [facility] [address] [place] [address], * TH AN ENDOTRACHEAL(NO CHARGE) (08/05/2024 12:08 PM EST) Narrative Candelaria Tatum CRNA - 08/05/2024 12:08 PM EST Candelaria Tatum CRNA ? 08/05/2024 12:10 PM General Information and Staff Patient location during procedure: [place] Anesthesiologist: Monroe Kim MD Resident/ASPARAGUS CUTTER: Candelaria Tatum CRNA Performed: resident/ASPARAGUS CUTTER/CAA Performed by: Candelaria Tatum CRNA Authorized by: [...] 7:03 AM EST) Only the most recent of10 resultswithin the time period is included. WBC [...] METHOD 08/05/2024 7:42 AM [facility] RDW 21.9(H) 11.0 - 15.0 % LAB HEMETOLOGY METHOD 08/05/2024 7:42 AM EST [facility] Platelets 180 130 - 400 K/mcL LAB HEMETOLOGY METHOD 08/05/2024 7:42 AM EST [facility] MPV 10.8 7.0 - 11.0 FL LAB HEMETOLOGY METHOD 08/05/2024 7:42 AM EST [facility] NRBC 0.0 <1.0 % LAB HEMETOLOGY METHOD 08/05/2024 7:42 AM EST [facility] NRBC Absolute 0.00 <0.10 K/mcL LAB HEMETOLOGY METHOD 08/05/2024 7:42 AM EST [facility] Blood Venous blood specimen / Unknown Venipuncture / Unknown 08/05/2024 7:03 AM EST 08/05/2024 7:34 AM EST Estdimas Stuart MD LAB BLOOD ORDERABLES Final R esult [facility] [address] [place] [address], * (ABNORMAL) Creatinine, Serum - Every 7 Days (08/04/2024 6:31 AM EST) Creatinine 2.49(H) 0.50 - 1.10 mg/dL LAB CHEMISTRY METHOD 08/04/2024 7:31 AM EST [facility] eGFR 19(L) >=60 mL/min/1. 73m2 LAB CHEMISTRY METHOD 08/04/2024 7:31 AM EST [facility] Comment:Calculation based on the??Chronic Kidney Disease Epidemiology Collaboration (CKD-EPI) equation refit??without adjustment for race. Blood Venous blood specimen / Unknown Venipuncture / Unknown 08/04/2024 6:31 AM EST 08/04/2024 6:54 AM EST Jonny Mathur MD LAB BLOOD ORDERABLES Final Re sult Performing Organization Address City/[facility]/ZIP Co de Phone Number [facility] [address] [place] [address], * Hepatitis B surface antigen with reflex to confirmation (08/03/2024 8:49 AM EST) Only the most recent of2 resultswithin the time period is included. Pathologist [facility] Hepatitis B Surface Ag Negative Negative LAB CHEMISTRY METHOD 08/03/2024 10:11 AM EST [facility] Blood Venous blood specimen / Unknown Venipuncture / Unknown 08/03/2024 8:49 AM EST 08/03/2024 9:22 AM EST [facility] - 08/03/2024 10:11 AM EST Over the counter supplements containing high doses of biotin may interfere with this assay. ??If interference is suspected, patients shoud be retested after refraining from biotin supplements for 72 hours. Steve Cruz MD LAB BLOOD ORDERABLES Fi nal Result Performing Organization Address [facility]/ZIP Co de Phone Number [facility] [address] [place] [address], [place] [phone] * Hepatitis B surface antibody quantitative (08/03/2024 8:49 AM EST) Pathologist [facility] Hepatitis B Surface Ab Negative Negative LAB CHEMISTRY METHOD 08/03/2024 9:59 AM EST [facility] Hepatitis B Surface Ab Quantitative <3.1 mIU/mL LAB CHEMISTRY METHOD 08/03/2024 9:59 AM EST [facility] Blood Venous blood specimen / Unknown Venipuncture / Unknown 08/03/2024 8:49 AM EST 08/03/2024 9:22 AM EST [facility] - 08/03/2024 9:59 AM EST >=10 mIU/mL is considered to be consistent with immunity. us Steve Cruz MD LAB BLOOD ORDERABLES Fi nal Result Performing Organization Address [facility] de Phone Number [facility] [address] [place] [address], [place] [phone] * Phosphorus (08/03/2024 6:01 AM EST) [facility] Phosphorus 4.3 2.5 - 4.5 mg/dL LAB CHEMISTRY METHOD 08/03/2024 8:11 AM EST [facility] Blood Venous blood specimen / Unknown Venipuncture / Unknown 08/03/2024 6:01 AM EST 08/03/2024 7:27 AM EST us Steve Cruz MD LAB BLOOD ORDERABLES Fi nal Result Performing Organization Address [facility] de Phone Number [facility] [address] [place] [address], [place] [phone] * Magnesium (08/03/2024 6:01 AM EST) [facility] Magnesium 2.1 1.9 - 2.6 mg/dL LAB CHEMISTRY METHOD 08/03/2024 8:11 AM EST [facility] Blood Venous blood specimen / Unknown Venipuncture / Unknown 08/03/2024 6:01 AM EST 08/03/2024 7:27 AM EST us Steve Cruz MD LAB BLOOD ORDERABLES Fi nal Result Performing Organization Address [facility] de Phone Number [facility] [address] [place] [address], [place] [phone] * Type and screen (08/02/2024 3:04 PM EST) Only the most recent of2 resultswithin the time period is included. [facility] ABO Group O 08/02/2024 4:52 PM [facility] Rh Type Positive 08/02/2024 4:52 PM [facility] Antibody Screen Negative 08/02/2024 4:52 PM [facility] Blood Venous blood specimen / Unknown Venipuncture / Unknown 08/02/2024 3:04 PM EST 08/02/2024 4:07 PM EST Steve Cruz MD LAB BLOOD BANK TEST ORD ERABLES Final Result [facility] [address] [place] [address], * Prepare RBC: 1 Units (08/02/2024 2:09 PM EST) Only the most recent of2 resultswithin the time period is included. Product Code [id number] 08/02/2024 6:27 PM [facility] Unit Number [id number] 08/02/19 6:27 PM [facility] Crossmatch Compatible 08/02/2024 5:03 PM [facility] Dispense Status Transfused 08/02/2024 6:27 PM [facility] Unit ABO Rh OPOS 08/02/2024 6:27 PM [facility] Unit Expiration Date Time [id number] 08/02/2024 6:27 PM [facility] Unit Blood Type 5100 08/02/2024 6:27 PM [facility] Blood Venous blood specimen / Unknown 08/02/2024 2:09 PM EST 08/02/2024 4:07 PM EST Steve Cruz MD BLOOD BANK PRODUCT ORDE RABDIEGO Final Result Performing Organization Address [facility]/ZIP Co de Phone Number [facility] [address] [place] [address], * (ABNORMAL) Hemoglobin and hematocrit (07/31/2024 2:30 PM EST) Only the most recent of4 resultswithin the time period is included. Hemoglobin 7.3(L) 11.5 - 16.0 g/dL LAB HEMETOLOGY METHOD 07/31/2024 3:12 PM EST [facility] Hematocrit 23.7(L) 35.0 - 47.0 % LAB HEMETOLOGY METHOD 07/31/2024 3:12 PM EST [facility] Blood Venous blood specimen / Unknown Venipuncture / Unknown 07/31/2024 2:30 PM EST 07/31/2024 3:05 PM EST Jonny Mathur MD LAB BLOOD ORDERABLES Final Re sult Performing Organization Address [facility]/ZIP Co de Phone Number [facility] [address] [place] [address], * (ABNORMAL) Hepatic Function Panel - STAT (07/30/2024 11:52 AM EST) Total Protein 5.2(L) 6.0 - 8.0 g/dL LAB CHEMISTRY METHOD 07/30/2024 12:56 PM EST [facility] Albumin 2.4(L) 3.2 - 5.0 g/dL LAB CHEMISTRY METHOD 07/30/2024 12:56 PM EST [facility] Total Bilirubin 0.4 0.0 - 1.4 mg/dL LAB CHEMISTRY METHOD 07/30/2024 12:56 PM EST [facility] Bilirubin, Direct 0.2 0.0 - 0.3 mg/dL LAB CHEMISTRY METHOD 07/30/2024 12:56 PM EST [facility] Bilirubin, Indirect 0.2 0.0 - 1.1 mg/dL LAB CHEMISTRY METHOD 07/30/2024 12:56 PM EST [facility] ALT (SGPT) 17 10 - 60 unit/L LAB CHEMISTRY METHOD 07/30/2024 12:56 PM EST [facility] AST (SGOT) 12 10 - 42 unit/L LAB CHEMISTRY METHOD 07/30/2024 12:56 PM EST [facility] Alkaline Phosphatase 80 42 - 121 unit/L LAB CHEMISTRY METHOD 07/30/2024 12:56 PM EST [facility] Blood Venous blood specimen / Unknown Venipuncture / Unknown 07/30/2024 11:52 AM EST 07/30/2024 12:28 PM EST Jonny Mathur MD LAB BLOOD ORDERABLES Final Re sult Performing Organization Address [facility] de Phone Number [facility] [address] [place] [address], [place] [phone] * (ABNORMAL) Heparin and low molecular weight anti Xa level (07/30/2024 6:10 AM EST) Only the most recent of23 resultswithin the time period is included. Heparin Anti-Xa 1.16(H) 0.30 - 0.70 I Unit/mL LAB COAGULATION METHOD 07/30/2024 6:53 AM EST [facility] Blood Venous blood specimen / Unknown Venipuncture / Unknown 07/30/2024 6:10 AM EST 07/30/2024 6:26 AM EST Narrative [facility] - 07/30/2024 6:53 AM EST Therapeutic range listed is for Unfractionated Heparin. LMW Heparin therapeutic range: 0.50-1.20 IU/mL us Jonny Mathur MD LAB BLOOD ORDERABLES Final Re sult Performing Organization Address City/[facility]/ZIP Co de Phone Number [facility] [address] [place] [address], [place] [phone] * Hepatitis B core antibody IgM (07/28/2024 12:19 PM EST) [facility] Hep B Core IgM Negative Negative LAB CHEMISTRY METHOD 07/28/2024 3:22 PM EST [facility] Blood Venous blood specimen / Unknown Venipuncture / Unknown 07/28/2024 12:19 PM EST 07/28/2024 12:35 PM EST [facility] - 07/28/2024 3:22 PM EST Over the counter supplements containing high doses of biotin may interfere with this assay. ??If interference is suspected, patients shoud be retested after refraining from biotin supplements for 72 hours. us Miguel Quiles MD LAB BLOOD ORDERABLES Final Res ult Performing Organization Address [facility] Co de Phone Number [facility] [address] [place] [address], [place] [phone] * Hepatitis B surface antibody (07/28/2024 12:19 PM EST) [facility] Hepatitis B Surface Ab Negative Negative LAB CHEMISTRY METHOD 07/28/2024 1:40 PM EST [facility] Hepatitis B Surface Ab Quantitative <3.1 mIU/mL LAB CHEMISTRY METHOD 07/28/2024 1:40 PM EST [facility] Blood Venous blood specimen / Unknown Venipuncture / Unknown 07/28/2024 12:19 PM EST 07/28/2024 12:35 PM EST [facility] - 07/28/2024 1:40 PM EST >=10 mIU/mL is considered to be consistent with immunity. us Miguel Quiles MD LAB BLOOD ORDERABLES Final Res ult Performing Organization Address [facility]/ZIP Co de Phone Number [facility] [address] [place] [address], [place] [phone] * Transfuse RBC (07/23/2024 6:19 PM EST) Lencho Stuart MD BLOOD TRANSFUSION ORDERABLES Final Result * Insert Midline (07/23/2024 4:52 PM EST) Narrative Maggy Spencer RN - 07/23/2024 4:52 PM EST Maggy Spencer RN ? 07/23/2024 ??5:02 PM Midline Insertion Procedure Note Procedure: Insertion of 18g/10cm Bard Powerglide midline Lot: [id number] Exp: 2025-05-28 Indications: ??Difficult draw with frequent [...] Signed Date: 07/22/2024 17:00 ET Workstation ID: [id number] Transcribed By: Self Edit Transcribed Date: 07/22/2024 [...] of fentanyl administered during the procedure. Scanner: StepOnespeed [address] Dose reduction technique: AEC [...] of fentanyl administered during the procedure. Scanner: GE Brightspeed [address] Dose reduction technique: [...] Signed Date: 07/22/2024 17:00 ET Workstation ID: [id number] Transcribed By: Self Edit Transcribed Date: 07/22/2024 [...] Tissue exam (07/22/2024 3:13 PM EST) Addendum [facility] Kidney (addendum) This case was sent to [facility], Department of Pathology, [place], [place] (CLIA: [id number]). Their diagnosis is summarized as follows: Pathologic [...] report for full kidney biopsy diagnosis from [facility], [place], [place]) 08/12/2024 10:52 AM EST [facility] Addendum electronically signed by Mitchell Prince MD on 08/12/2024 at 10:52 AM Final Diagnosis Kidney, left-biopsies for routine, immunofluorescence and electron microscopy: -Submitted in toto to [facility] -See addendum report 08/12/2024 10:52 AM EST [facility] Gross Description A. Kidney, Left, : Labeled kidney L . Received fresh in saline are 3 perez-pink soft tissue cores, ranging from 0.7 x 0.1 cm to 1.7 x 0.1 cm, which are transfered to formalin for light microscopy, Mick fixative for Immunofluorescence, and Glutaraldehyde for electron microscopy. The specimen is entirely submitted to [facility] for analysis. ELOISE 08/12/2024 10:52 AM EST [facility] Disclaimer Unless otherwise specified, all tissue is 10% NB formalin fixed and paraffin embedded. 08/12/2024 10:52 AM EST [facility] Tissue Left kidney structure / Unknown 07/22/2024 3:13 PM EST 07/22/2024 3:39 PM EST us Fela Palomo MD LAB PATHOLOGY ORDERABLES Edited Result - Final Performing Organization Address [facility]/ZIP Co de Phone Number [facility] [address] [place] [address], [place] [phone] * (ABNORMAL) Prothrombin time with INR (07/22/2024 11:00 AM EST) Only the most recent of2 resultswithin the time period is included. Protime 16.3(H) 10.6 - 13.9 sec LAB COAGULATION METHOD 07/22/2024 1:11 PM [facility] INR 1.3 LAB COAGULATION METHOD 07/22/2024 1:11 PM [facility] Blood Venous blood specimen / Unknown Venipuncture / Unknown 07/22/2024 11:00 AM EST 07/22/2024 11:22 AM EST Lencho Stuart MD LAB BLOOD ORDERABLES Final R esult [facility] [address] [place] [address], [place] [phone] * SST tube (07/22/2024 10:53 AM EST) Only the most recent of2 resultswithin the time period is included. Extra Tube Hold for add-ons. 07/22/2024 1:01 PM EST [facility] Comment:Auto resulted. Blood Venous blood specimen / Unknown 07/22/2024 10:53 AM EST 07/22/2024 11:25 AM EST us Lencho Stuart MD LAB BLOOD ORDERABLES Final R esult Performing Organization Address City/[facility]/ZIP Co de Phone Number [facility] [address] [place] [address], [place] [phone] * Lavender tube (07/22/2024 10:53 AM EST) Extra Tube Hold for add-ons. 07/22/2024 1:01 PM EST [facility] Comment:Auto resulted. Blood Venous blood specimen / Unknown 07/22/2024 10:53 AM EST 07/22/2024 11:25 AM EST us Lencho Stuart MD LAB BLOOD ORDERABLES Final R esult Performing Organization Address [facility]/ZIP Co de Phone Number [facility] [address] [place] [address], [place] [phone] * Activated Partial Thromboplastin Time - STAT (07/20/2024 2:30 PM EST) aPTT 30.0 24.1 - 39.3 sec LAB COAGULATION METHOD 07/20/2024 3:06 PM EST [facility] Blood Venous blood specimen / Unknown Venipuncture / Unknown 07/20/2024 2:30 PM EST 07/20/2024 2:52 PM EST us Lencho Stuart MD LAB BLOOD ORDERABLES Final R esult Performing Organization Address City/[facility]/ZIP Co de Phone Number [facility] [address] [place] [address], [place] [phone] * (ABNORMAL) Microalbumin creatinine urine ratio (07/19/2024 12:01 PM EST) Creatinine, Urine 41.0 mg/dL LAB CHEMISTRY METHOD 07/19/2024 1:46 PM [facility] Microalb, Ur 1,480.0(H ) 0.0 - 29.0 mg/L LAB CHEMISTRY METHOD 07/19/2024 1:46 PM [facility] Microalb/Crea t Ratio 3,610(H) <30 mg/g creat LAB CHEMISTRY METHOD 07/19/2024 1:46 PM [facility] Urine Urine specimen obtained by clean catch procedure / Unknown Non-blood Collection / Unknown 07/19/2024 12:01 PM EST 07/19/2024 12:30 PM EST us Miguel Quiles MD LAB URINE ORDERABLES Final Res ult Performing Organization Address City/[facility]/ZIP Co de Phone Number [facility] [address] [place] [address], [place] [phone] * Creatinine, urine, random (07/19/2024 12:01 PM EST) Creatinine, Urine 41.0 mg/dL LAB CHEMISTRY METHOD 07/19/2024 1:17 PM EST [facility] Urine Urine specimen obtained by clean catch procedure / Unknown Non-blood Collection / Unknown 07/19/2024 12:01 PM EST 07/19/2024 12:30 PM EST us Miguel Quiles MD LAB URINE ORDERABLES Final Res ult [facility] [address] [place] [address], [place] [phone] * (ABNORMAL) Parathyroid hormone related protein (07/19/2024 [...] analytical performance characteristics have been determined by [employer] It has not been cleared or approved by FDA. This assay has been validated pursuant to the CLIA regulations and is used for clinical purposes. Test Performed at: [employer] [facility] [address] [place], [place] ??[address] ? I Bethany GUERRERO, PhD, NINA Blood Venous blood specimen / Unknown Venipuncture / Unknown 07/19/2024 7:55 AM EST 07/19/2024 7:55 AM EST Jesus Manuel HEDRICK LAB BLOOD ORDERABLES Final Resu lt [facility] [address] [place] [address] * (ABNORMAL) Anti-neutrophilic cytoplasmic antibody (07/19/2024 6:52 AM EST) [facility] Myeloperoxidase Ab Negative Negative LAB CHEMISTRY METHOD 07/20/2024 12:10 PM EST [facility] Myeloperoxidase Ab, Quant 1 <=20 units LAB CHEMISTRY METHOD 07/20/2024 12:10 PM EST [facility] Proteinase-3 Ab Positive(A ) Negative LAB CHEMISTRY METHOD 07/20/2024 12:10 PM EST [facility] Proteinase-3 Ab Quant 165(H) <=20 units LAB CHEMISTRY METHOD 07/20/2024 12:10 PM EST [facility] Blood Venous blood specimen / Unknown Venipuncture / Unknown 07/19/2024 6:52 AM EST 07/19/2024 7:21 AM EST us Miguel Quiles MD LAB BLOOD ORDERABLES Final Res ult [facility] [address] [place] [address], [place] [phone] * Lipid panel with reflex to direct LDL (05/31/2024 9:22 AM EST) Cholesterol 131 0 - 200 mg/dL LAB CHEMISTRY METHOD 05/31/2024 12:51 PM EST [facility] Triglycerides 113 0 - 150 mg/dL LAB CHEMISTRY METHOD 05/31/2024 12:51 PM EST [facility] HDL 60 >=40 mg/dL LAB CHEMISTRY METHOD 05/31/2024 12:51 PM EST [facility] LDL Calculated 48 0 - 100 mg/dL LAB CHEMISTRY METHOD 05/31/2024 12:51 PM [facility] VLDL Cholesterol Hunter 22.6 mg/dL LAB CHEMISTRY METHOD 05/31/2024 12:51 PM EST [facility] Non HDL Chol. (LDL+VLDL) 71 <145 mg/dL LAB CHEMISTRY METHOD 05/31/2024 12:51 PM EST [facility] Chol/HDL Ratio 2.2 0.0 - 4.4 LAB CHEMISTRY METHOD 05/31/2024 12:51 PM EST [facility] Blood Venous blood specimen / Unknown Venipuncture / Unknown 05/31/2024 9:22 AM EST 05/31/2024 9:22 AM EST us Kayleigh Pedraza NP LAB BLOOD ORDERABLES Final Resul t Performing Organization Address City/[facility]/ZIP Co de Phone Number [facility] [address] [place] [address], [place] [phone] * SALLY DEXA AXIAL SKELETON (04/15/2018 10:29 AM EDT) Anatomical Region Laterality Modality Mammography 04/15/2018 9:39 AM EDT Narrative 04/15/2018 10:29 AM EDT [facility] Diagnostic Imaging Department [address] [place] [address] Patient: ??CONTRERAS,ANA A ?/Age/Sex: 1945 - 73 - F Unit#: ??[id number] ? Location/Status: ??SPDIMAM/REG CLI ? Mnemonic/Ordering Site: ??MAMDEXAAX/SPMAM Ordering Physician: ??VIVIEN SANTIZO MD [facility] Dexa Axial Skeleton - 04/15/18 [...] probability of hip fracture of 2.2%. Code 07309 Dictating Physician: ??JAILYN BARAHONA MD Electronically Signed by: ??JAILYN BARAHONA MD Dic Date/Time: ??04/15/18 1028 Sign date/Time: ??04/15/18 1029 Procedure Note Jailyn Barahona MD - 06/17/2022 [facility] Diagnostic Imaging Department [address] [place] [address] Patient: RCIHIE CONTRERASNCHE Krysta /Age/Sex: 1945 - 73 - F Unit#: [id number] [facility]/Ordering Site: MAMDEXAAX/SPMAM Ordering Physician: VIVIEN SANTIZO MD Sally Dexa [...] density of the femurs bilaterally is 0.854 gm/[id number] is 85% of that of young normals [...] probability of hip fracture of 2.2%. Code 13956 Dictating Physician: JAILYN BARAHONA MD Electronically Signed by: JAILYN BARAHONA MD Dic Date/Time: 04/15/18 1028 Sign date/Time: 04/15/18 1029 Vivien Santizo MD IMG BI PROCEDURES Final Result from Last 3 Months or Most Recently Relevant to Health Maintenance Insurance [employer] MEDICARE Advance Directives Documents on File Type Date Recorded Patient Electronics Technology Instructor Expl anation Advance Directives and Living Will [...] Second Alternate Health Care Agent Care Teams Customs Inspector Relationship Specialty Start Date End Date Eloisa Vázquez DO [facility] [address] PCP - General 04/12/24
--- OUTSIDE RECORDS SUMMARY | 2024-10-17 06:22 | XMS_ITS ---
[employer] Care Plan Created on: October 13, 2024 Ana Contreras : 1945 Sex: Female Author Organization [employer]. Address [address] [place] [address] Phone Health Concerns Health Status CKD 4 Health Concerns None
--- OUTSIDE RECORDS SUMMARY | 2024-10-17 06:22 | XMS_ITS | Encounter Summary ---
Author Organization [facility] Address [address] [place] [address] Care Team Providers Care Business Office Coordinator Name Role Phone Marie Vázquezmankamryn CHERY Primary Care Provider [phone] Encounter Details Date Type Department Care Team (Late st Contact Info) Description 04/12/2024 1:41 PM EDT Hospital Encounter TH HISTORIC ENCOUNTERS EASTERN CONVERSION ONLY Jaime Grimaldo MD [address] [place] [address] Social History Tobacco Use Types Packs/Day Years [...] summerof this year while she was in [place] developed some respiratory infection/COVID, patient also have [...] issues, was seen by a physician in [place] (in urgent care clinic), CT scan of [...] 10/17/2024 1:20 PM EDT Telemedicine Endocrinology - [address] [place] [address] Kathy Michelle PA [address] [place] [address] 11/11/2024 11:00 AM EDT Ancillary Procedure [facility] [address] [place] [address] 11/14/2024 11:[address] [facility] Scan [address] [place] [phone] 11/18/2024 2:15 PM EDT Office Visit Internal Medicine - [facility] [address] [place] [address] Brigidoeverardo Eloisa [address] [place] [address] 12/01/2024 10:00 AM EDT Office Visit Thoracic Surgery - [place] [address] [place] [phone] Cecily Montez MD [address] [place] [address] documented as of this encounter Procedures Procedure [...] documented as of this encounter Care Teams Business Office Coordinator Relationship Specialty Start Date End Date LoboconcettaMarieEloisaDO beto [address] [facility] [place] [address] PCP - General 04/12/24 documented as of this encounter
--- OUTSIDE RECORDS SUMMARY | 2024-10-17 06:22 | XMS_ITS | Clinical Summary ---
Author Organization [facility] Address [address] [place] [address] Care Team Providers Care Shoe Stitcher Name Role Phone GurpreetEloisa Primary Care Provider [phone] Allergies No known active allergies Medications Medication [...] age to complete this topic Care Teams Shoe Stitcher Relationship Specialty Start Date End Date Eloisa Vázquez DO [address] [place] [address] PCP - General Internal Medicine 04/07/24
--- OUTSIDE RECORDS SUMMARY | 2024-10-17 06:22 | XMS_ITS | Clinical Summary ---
Author Organization [facility] Address [address] [address] Phone Care Team Providers Care Construction Supervisor/Carpenter Name Role Phone Eloisa Vázquez Primary Care Provider [phone] Encounters Date Type Department Care Team Description 10/10/2024 Treatment [facility] [address] [place] [phone] Anthony Norton MD 09/30/2024 Treatment [facility] [address] [address] Anthony Norton MD 09/23/2024 Treatment [facility] [address] [address] Anthony Norton MD 09/19/2024 Treatment [facility] [address] [address] Anthony Norton MD 09/12/2024 Treatment [facility] [address] [phone] Anthony Norton MD 09/02/2024 Treatment [facility] [address] [address] Anthony Norton MD 08/26/2024 Treatment [facility] [address] [address] Anthony Norton MD 08/23/2024 Treatment [facility] [address] [address] Tony Golden MD 08/17/2024 Treatment [facility] [address] [address] Anthony Norton MD 08/11/2024 Orders Only [facility] [address] [address] Anthony Norton MD ANCA associated vasculitis (HCC); 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) 08/08/2024 Treatment [facility] [address] [address] Anthony Norton MD 08/08/2024 Office Communication [facility] [address] [address] Anthony Norton MD ANCA associated vasculitis (HCC) (Primary Dx); 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) 07/28/2024 Telephone [facility] [address] [phone] Maggy Mcgarry from Last 3 Months Social [...] Foot Exam 08/08/2024 Diabetes: Hemoglobin A1C 12/30/2024 025, 08/08/2024, 05/31/2024 Influenza Vaccine (Season Ended) 2025 Procedures Procedure Name Priority Date/Time Associated Diagnosis Comments BASIC METABOLIC PANEL BUNDLED (HC) Routine 10/10/2024 3:00 AM EDT LIH (HC) Routine 10/10/2024 3:00 AM EDT GLUCOSE, RANDOM Routine 10/10/2024 3:00 AM EDT BASIC METABOLIC PANEL BUNDLED (HC) Routine 10/03/2024 [...] Results * (ABNORMAL) Basic Metabolic Panel Bundled (10/10/2024 3:00 AM EDT) Only the most recent of10 resultswithin the time period is included. Sodium 135(L) 136 - 145 mEq/L [facility] Potassium 4.0 3.4 - 5.0 mEq/L [facility] Chloride 100 98 - 107 mEq/L [facility] Bicarbonate (CO2) 21 21 - 31 mEq/L [facility] Anion Gap 14 3 - 14 mEq/L [facility] BUN 56(H) 7 - 25 mg/dL [facility] Calcium 8.0(L) 8.6 - 10.3 mg/dL [facility] Creatinine 3.19(H) 0.55 - 1.02 mg/dL [facility] 10/10/2024 3:00 AM EDT 10/11/2024 12:21 PM EDT us Anthony Norton MD LAB [id number] SOLICITED RESULTS Final Result Performing Organization Address City/[facility]/ZIP Co de Phone Number [facility] [address] [place] [address] * LIH (10/10/2024 3:00 AM EDT) Only the most recent of13 resultswithin the time period is included. Lipemia Normal Normal [facility] Icterus Normal Normal [facility] Hemolysis Normal Normal [facility] 10/10/2024 3:00 AM EDT 10/11/2024 12:21 PM EDT us Anthony Norton MD LAB [id number] SOLICITED RESULTS Final Result Performing Organization Address City/[facility]/ZIP Co de Phone Number [facility] [address] [place] [address] * (ABNORMAL) Glucose, random (10/10/2024 3:00 AM EDT) Only the most recent of13 resultswithin the time period is included. Glucose 432(H) 74 - 109 mg/dL [facility] 10/10/2024 3:00 AM EDT 10/11/2024 12:21 PM EDT us Anthony Norton MD LAB BLOOD ORDERABLES Final Re sult Performing Organization Address [facility] de Phone Number [facility] [address] [place] [address] * Collection Date (10/03/2024 3:00 AM EDT) Collection Date See Comment [facility] Comment: Patient sample received may exceed specimen stability, based on the collection date electronically provided. ??When reviewing patient results, verify collection information and consider specimen stability before acting on any critical or panic results. 10/03/2024 3:00 AM EDT Anthony Norton MD LAB [id number] SOLICITED RESULTS Final Result Performing Organization Address [facility] de Phone Number [facility] [address] [place] [address] * (ABNORMAL) Kt/V Natural Log, URR (09/30/2024 [...] Kt/V Natural Log 1.52 >=1.2 [facility] 09/30/2024 3:0 0 AM EDT 10/01/2024 1:30 PM EDT Anthony Norton MD LAB [id number] SOLICITED RESULTS Final Result Performing Organization Address [facility] de Phone Number [facility] [address] [place] [address] * (ABNORMAL) Calcium Phosphorus Product, Adjusted (09/30/2024 3:00 AM EDT) Only the most recent of3 resultswithin the time period is included. Pathologist [facility] Albumin 3.2(L) 3.6 - 5.4 g/dL [facility] Calcium 8.1(L) 8.6 - 10.3 mg/dL [facility] Phosphorus, Serum 5.0 2.5 - 5.0 mg/dL [facility] Ca*PO4 40.5 <55.0 mg2/dL2 [facility] Calcium, Adjusted Total 8.7 8.6 - 10.3 mg/dL [facility] CA*PO4 CORRCTD 43.5 <55.0 mg2/dL2 [facility] 09/30/2024 3:00 AM EDT 10/01/2024 1:31 PM EDT Anthony Norton MD LAB [id number] SOLICITED RESULTS Final Result Performing Organization Address City/[facility]/ZIP Co de Phone Number [facility] [address] [place] [address] * Hepatitis B Surface Ag w/Reflex Confirmation (09/30/2024 3:00 AM EDT) Only the most recent of3 resultswithin the time period is included. Pathologist [facility] Hep B Surface Antigen Negative Negative [facility] 09/30/2024 3:00 AM EDT 10/01/2024 1:31 PM EDT Anthony Norton MD LAB BLOOD ORDERABLES Final Re sult Performing Organization Address City/[facility]/ZIP Co de Phone Number [facility] [address] [place] [address] * (ABNORMAL) TSAT (09/30/2024 3:00 AM EDT) Only the most recent of3 resultswithin the time period is included. Pathologist [facility] Iron 66 50 - 170 ug/dL [facility] Transferrin 127(L) 250 - 380 mg/dL [facility] TIBC 178(L) 211 - 406 ug/dL [facility] Iron Saturation (TSat) 37 22 - 52 % [facility] 09/30/2024 3:00 AM EDT 10/01/2024 1:31 PM EDT Anthony Norton MD LAB BLOOD ORDERABLES Final Re sult [facility] [address] [place] [address] * (ABNORMAL) CBC and Differential (09/30/2024 3:00 [...] AM EDT 10/01/2024 1:40 PM EDT Anthony Notron MD LAB BLOOD ORDERABLES Final Re sult [facility] [address] [place] [address] * ALT (09/30/2024 3:00 AM EDT) Only the most recent of3 resultswithin the time period is included. ALT (SGPT) 14 10 - 49 U/L [facility] 09/30/2024 3:00 AM EDT 10/01/2024 1:31 PM EDT Anthony Norton MD LAB BLOOD ORDERABLES Final Re sult Performing Organization Address [facility] Co de Phone Number [facility] [address] [place] [address] * AST (09/30/2024 3:00 AM EDT) Only the most recent of3 resultswithin the time period is included. AST (SGOT) 12 <34 U/L [facility] 09/30/2024 3:00 AM EDT 10/01/2024 1:31 PM EDT us Anthony Norton MD LAB BLOOD ORDERABLES Final Re sult Performing Organization Address [facility] de Phone Number [facility] [address] [place] [address] * (ABNORMAL) Protein, total (09/30/2024 3:00 AM EDT) Only the most recent of3 resultswithin the time period is included. Total Protein 5.0(L) 6.4 - 8.9 g/dL [facility] 09/30/2024 3:00 AM EDT 10/01/2024 1:31 PM EDT us Anthony Norton MD LAB BLOOD ORDERABLES Final Re sult Performing Organization Address [facility] Co de Phone Number [facility] [address] [place] [address] * Alkaline phosphatase (09/30/2024 3:00 AM EDT) Only the most recent of3 resultswithin the time period is included. Alkaline Phosphatase 102 46 - 116 U/L [facility] 09/30/2024 3:00 AM EDT 10/01/2024 1:31 PM EDT Anthony Norton MD LAB BLOOD ORDERABLES Final Re sult Performing Organization Address [facility] Co de Phone Number [facility] [address] [place] [address] * PTH, Intact (09/30/2024 3:00 AM EDT) [...] ORDERABLES Final Re sult Performing Organization Address [facility] Co de Phone Number [facility] [address] [place] [address] * Magnesium (09/30/2024 3:00 AM EDT) Only the most recent of3 resultswithin the time period is included. Magnesium 2.0 1.9 - 2.7 mg/dL [facility] 09/30/2024 3:00 AM EDT 10/01/2024 1:31 PM EDT Anthony Norton MD LAB BLOOD ORDERABLES Final Re sult Performing Organization Address [facility] Co de Phone Number [facility] [address] [place] [address] * (ABNORMAL) Lactate dehydrogenase (09/30/2024 3:00 AM EDT) Only the most recent of3 resultswithin the time period is included. LDH 300(H) 120 - 246 U/L [facility] 09/30/2024 3:00 AM EDT 10/01/2024 1:31 PM EDT Anthony Norton MD LAB BLOOD ORDERABLES Final Re sult Performing Organization Address [facility] de Phone Number [facility] [address] [place] [address] * (ABNORMAL) Hemoglobin A1c (09/30/2024 3:00 AM [...] ORDERABLES Final Re sult Performing Organization Address [facility] de Phone Number [facility] [address] [place] [address] * (ABNORMAL) Ferritin (09/30/2024 3:00 AM EDT) Only the most recent of3 resultswithin the time period is included. Ferritin 2,081(H) 10 - 291 ng/mL [facility] 09/30/2024 3:00 AM EDT 10/01/2024 1:31 PM EDT Anthony Norton MD LAB BLOOD ORDERABLES Final Re sult Performing Organization Address [facility] de Phone Number [facility] [address] [place] [address] * (ABNORMAL) Creatinine, serum (09/30/2024 3:00 AM EDT) Only the most recent of2 resultswithin the time period is included. Creatinine 3.65(H) 0.55 - 1.02 mg/dL [facility] 09/30/2024 3:00 AM EDT 10/01/2024 1:31 PM EDT Anthony Norton MD LAB BLOOD ORDERABLES Final Re sult Performing Organization Address [facility] de Phone Number [facility] [address] [place] [address] * (ABNORMAL) Bilirubin, total (09/30/2024 3:00 AM EDT) Only the most recent of3 resultswithin the time period is included. Total Bilirubin 0.2(L) 0.3 - 1.2 mg/dL [facility] 09/30/2024 3:00 AM EDT 10/01/2024 1:31 PM EDT Anthony Norton MD LAB BLOOD ORDERABLES Final Re sult Performing Organization Address [facility] de Phone Number [facility] [address] [place] [address] * (ABNORMAL) Lipid panel (09/30/2024 3:00 AM [...] ORDERABLES Final Re sult Performing Organization Address [facility] de Phone Number [facility] [address] [place] [address] * (ABNORMAL) Electrolyte panel (09/30/2024 3:00 AM [...] ORDERABLES Final Re sult Performing Organization Address City/[facility] Co de Phone Number [facility] [address] [place] [address] * (ABNORMAL) Hemoglobin (09/26/2024 3:00 AM EDT) Only the most recent of2 resultswithin the time period is included. Hgb 8.9(L) 11.2 - 15.7 g/dL [facility] Hemoglobin x 3 26.7(L) 33.6 - 47.1 g/dL [facility] 09/26/2024 3:00 AM EDT 09/27/2024 1:27 PM EDT us Anthony Norton MD LAB BLOOD ORDERABLES Final Re sult Performing Organization Address [facility] Co de Phone Number [facility] [address] [place] [address] * (ABNORMAL) Creatinine clearance, urine, 24 hour [...] ORDERABLES Final Re sult Performing Organization Address [facility]/ZIP Co de Phone Number [facility] [address] [place] [address] * (ABNORMAL) Hemoglobin and hematocrit (09/16/2024 3:00 AM EDT) Only the most recent of2 resultswithin the time period is included. Pathologist [facility] Hgb 8.6(L) 11.2 - 15.7 g/dL [facility] Hematocrit 26.5(L) 34.1 - 44.9 % [facility] Hemoglobin x 3 25.8(L) 33.6 - 47.1 g/dL [facility] 09/16/2024 3:00 AM EDT 09/17/2024 1:04 PM EDT Anthony Norton MD LAB BLOOD ORDERABLES Final Re sult Performing Organization Address [facility] de Phone Number [facility] [address] [place] [address] * Phosphorus (09/16/2024 3:00 AM EDT) [facility] Phosphorus, Serum 3.8 2.5 - 5.0 mg/dL [facility] 09/16/2024 3:00 AM EDT 09/17/2024 1:09 PM EDT Anthony Norton MD LAB BLOOD ORDERABLES Final Re sult Performing Organization Address [facility] de Phone Number [facility] [address] [place] [address] * Confirmation Test HCV (08/08/2024 3:00 AM EST) [facility] Hep C Ab Confirmation Not needed [facility] 08/08/2024 3:00 AM EST 08/09/2024 1:15 PM EST Anthony Norton MD LAB BLOOD ORDERABLES Final Re sult Performing Organization Address [facility] de Phone Number [facility] [address] [place] [address] * HEPATITIS C ABS W/REFLEX RNA DETECTR (08/08/2024 3:00 AM EST) Pathologist [facility] Hep C Virus Ab Non-Reacti ve Non-Reacti ve [facility] 08/08/2024 3:00 AM EST 08/09/2024 1:17 PM EST us Anthony Norton MD LAB [id number] SOLICITED RESULTS Final Result Performing Organization Address [facility] Phone Number [facility] [address] [address] * Hepatitis B Core Antibody, Total (08/08/2024 3:00 AM EST) HBc Total Ab, S Negative Negative [facility] 08/08/2024 3:00 AM EST 08/09/2024 1:17 PM EST Anthony Norton MD LAB BLOOD ORDERABLES Final Re sult Performing Organization Address [facility] de Phone Number [facility] [address] [address] * Aluminum level (08/08/2024 3:00 AM EST) Pathologist [facility] Aluminum 4 1 - 20 ug/L [facility] 08/08/2024 3:00 AM EST 08/09/2024 1:21 PM EST Anthony Norton MD LAB BLOOD ORDERABLES Final Re sult Performing Organization Address [facility] de Phone Number [address] [address] * Vitamin D 25 Hydroxy (08/08/2024 3:00 AM EST) Vitamin D, 25-Hydroxy 38 30 - 100 ng/mL [facility] Comment: Status ? Adult ?? Pediatric Deficient: ? <20 ? <15 Insufficient: ??20-29 ?? 15-19 Sufficient: ?30-100 ??20-100 08/08/2024 3:00 AM EST 08/09/2024 1:17 PM EST us Anthony Norton MD LAB BLOOD ORDERABLES Final Re sult Performing [facility] Co de Phone Number [facility] [address] [place] [address] * (ABNORMAL) Hepatitis B Surface Antibody (08/08/2024 3:00 AM EST) Hep B Surface Antibody <4(A) mIU/mL [facility] Comment: Interpretation: <10: No Immunity >=10: Probable Immunity 08/08/2024 3:00 AM EST 08/09/2024 1:17 PM EST Anthony Norton MD LAB BLOOD ORDERABLES Final Re sult Performing Organization Address [facility] Co de Phone Number [facility] [address] [place] [address] * Uric Acid (08/08/2024 3:00 AM EST) Uric Acid 5.0 2.3 - 6.6 mg/dL [facility] 08/08/2024 3:00 AM EST 08/09/2024 1:17 PM EST Anthony Norton MD LAB BLOOD ORDERABLES Final Re sult Performing Organization Address [facility] de Phone Number [facility] [address] [place] [address] from Last 3 Months Insurance [id number] Medicare Care Teams Construction Supervisor/Carpenter Relationship Specialty Start Date End Date Eloisa Vázquez [address] [place] [id number] PCP - General Internal Medicine 07/11/24
[2024-10-17 06:35] LABS: Anion Gap 14 (12-20); Blood Urea Nitrogen 68 mg/dL (9-16); Calcium 7.8 mg/dL (8.4-10.2); Carbon Dioxide 21 mmol/L (22-29); Chloride 105 mmol/L (96-108); Estimated Glomerular Filt Rate 14; Glucose Random 147 mg/dL (60-115); Potassium 3.3 mmol/L (3.3-5.1); Sodium 137 mmol/L (135-145)
== END 2024-10-17 06:08 | disposition home or self-care (01) ==
LOC: HO.MMNH1L 06:07
PROVIDERS: Visit Provider Family Medicine
DX: E11.9 Type 2 diabetes mellitus without complications (principal)
CPT/HCPCS: 36415; 80048; 85025

== ENCOUNTER 2024-10-24 05:50 | Outpatient (REF) | payer MEDICARE, SELFPAY ==
--- OUTSIDE RECORDS SUMMARY | 2024-10-24 05:58 | XMS_ITS | Clinical Summary ---
Author Organization [facility] Address [address] [place] [address] Care Team Providers Care Supervisor Salvage Name Role Phone GurpreetEloisa Primary Care Provider [phone] Allergies No known active allergies Medications Medication [...] age to complete this topic Care Teams Supervisor Salvage Relationship Specialty Start Date End Date Eloisa Vázquez DO [address] [place] [address] PCP - General Internal Medicine 04/07/24
--- OUTSIDE RECORDS SUMMARY | 2024-10-24 05:59 | XMS_ITS | Encounter Summary ---
Author Organization [facility] Address [address] [place] [address] Care Team Providers Care Animal Handler Name Role Phone Marie Vázquezmankamryn CHERY Primary Care Provider [phone] Encounter Details Date Type Department Care Team (Late st Contact Info) Description 04/12/2024 1:41 PM EDT Hospital Encounter TH HISTORIC ENCOUNTERS EAST[facility] CONVERSION ONLY Jaime Grimaldo MD [address] [place] [id number] Social History Tobacco Use Types Packs/Day Years [...] summerof this year while she was in [place] developed some respiratory infection/COVID, patient also have [...] issues, was seen by a physician in [place] (in urgent care clinic), CT scan of [...] Care Team (Late st Contact Info) Description 11/11/2024 11:00 AM EDT Ancillary Procedure [facility] [address] [place] [address] 11/14/2024 11:30 AM EDT Appointment [facility] CT Scan [address] [place] [phone] 11/18/2024 2:15 PM EDT Office Visit Internal [facility] [address] [place] [address] Eloisa Vázquez DO [address] [place] [address] 12/01/2024 10:00 AM EDT Office Visit Thoracic Surgery - [place] [address] [place] [phone] Cecily Montez MD [address] [place] [address] documented as of this encounter Procedures Procedure [...] as of this encounter Care Teams Animal Handler Relationship Specialty Start Date End Date Eloisa Vázquez DO [address] [place] [address] PCP - General 04/12/24 documented as of this encounter
--- OUTSIDE RECORDS SUMMARY | 2024-10-24 05:59 | XMS_ITS | Clinical Summary ---
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 Name Role Phone Eloisa Vázquez Primary Care Provider [phone] Encounters Date Type Department Care Team Description 10/10/2024 Treatment [facility] [address] [place] [phone] Anthony Norton MD 09/30/2024 Treatment [facility] [address] [phone] Anthony Norton MD 09/23/2024 Treatment [facility] [address] [phone] Anthony Norton MD 09/19/2024 Treatment [facility] [address] [phone] Anthony Norton MD 09/12/2024 Treatment [facility] [address] [phone] Anthony Norton MD 09/02/2024 Treatment [facility] [address] [phone] Anthony Norton MD 08/26/2024 Treatment [facility] [address] [phone] Anthony Norton MD 08/23/2024 Treatment [facility] [address] [address] Tony Golden MD 08/17/2024 Treatment [facility] [address] [phone] Anthony Norton MD 08/11/2024 Orders Only [facility] [address] [phone] Anthony Norton MD ANCA associated vasculitis (HCC); 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) 08/08/2024 Treatment [facility] [address] [phone] Anthony Norton MD 08/08/2024 Office Communication [facility] [address] [phone] Anthony Norton MD ANCA associated vasculitis (HCC) (Primary Dx); 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) 07/28/2024 Telephone [facility] [address] [phone] Maggy Mcgarry from Last 3 Months Social [...] Comments BASIC METABOLIC PANEL BUNDLED (HC) Routine 10/17/2024 3:00 AM EDT GLUCOSE, RANDOM Routine 10/17/2024 3:00 AM EDT LIH (HC) Routine 10/17/2024 3:00 AM EDT BASIC METABOLIC PANEL BUNDLED (HC) Routine 10/10/2024 [...] Results * (ABNORMAL) Basic Metabolic Panel Bundled (10/17/2024 3:00 AM EDT) Only the most recent of11 resultswithin the time period is included. Sodium 136 136 - 145 mEq/L [facility] Potassium 3.7 3.4 - 5.0 mEq/L [facility] Chloride 102 98 - 107 mEq/L [facility] Bicarbonate (CO2) 23 21 - 31 mEq/L [facility] Anion Gap 11 3 - 14 mEq/L [facility] BUN 61(H) 7 - 25 mg/dL [facility] Calcium 8.5(L) 8.6 - 10.3 mg/dL [facility] Creatinine 3.42(H) 0.55 - 1.02 mg/dL [facility] 10/17/2024 3:00 AM EDT 10/18/2024 1:30 PM EDT Anthony Norton MD LAB [id number] SOLICITED RESULTS Final Result Performing Organization Address City/[facility]/ZIP Co de Phone Number [facility] [address] [place] [address] * LIH (10/17/2024 3:00 AM EDT) Only the most recent of14 resultswithin the time period is included. Lipemia Normal Normal [facility] Icterus Normal Normal [facility] Hemolysis Normal Normal [facility] 10/17/2024 3:00 AM EDT 10/18/2024 1:30 PM EDT us Anthony Norton MD LAB [id number] SOLICITED RESULTS Final Result Performing Organization Address City/[facility]/ZIP Co de Phone Number [facility] [address] [place] [address] * (ABNORMAL) Glucose, random (10/17/2024 3:00 AM EDT) Only the most recent of14 resultswithin the time period is included. Glucose 171(H) 74 - 109 mg/dL [facility] 10/17/2024 3:00 AM EDT 10/18/2024 1:30 PM EDT Anthony Norton MD LAB BLOOD ORDERABLES Final Re sult Performing Organization Address [facility] Co de Phone Number [facility] [address] [place] [address] * Collection Date (10/03/2024 3:00 AM EDT) Collection Date See Comment [facility] Comment: Patient sample received may exceed specimen stability, based on the collection date electronically provided. ??When reviewing patient results, verify collection information and consider specimen stability before acting on any critical or panic results. 10/03/2024 3:00 AM EDT Anthony Norton MD LAB [id number] SOLICITED RESULTS Final Result Performing Organization Address [facility] de Phone Number [facility] [address] [place] [address] * (ABNORMAL) Kt/V Natural Log, URR (09/30/2024 [...] 1:30 PM EDT Anthony Norton MD LAB [id number] SOLICITED RESULTS Final Result Performing Organization Address [facility] de Phone Number [facility] [address] [place] [address] * (ABNORMAL) Calcium Phosphorus Product, Adjusted (09/30/2024 [...] 1:31 PM EDT Anthony Norton MD LAB [id number] SOLICITED RESULTS Final Result Performing Organization Address [facility] de Phone Number [facility] [address] [place] [address] * Hepatitis B Surface Ag w/Reflex Confirmation (09/30/2024 3:00 AM EDT) Only the most recent of3 resultswithin the time period is included. Hep B Surface Antigen Negative Negative [facility] 09/30/2024 3:00 AM EDT 10/01/2024 1:31 PM EDT us Anthony Norton MD LAB BLOOD ORDERABLES Final Re sult Performing Organization Address [facility] de Phone Number [facility] [address] [place] [address] * (ABNORMAL) TSAT (09/30/2024 3:00 AM EDT) Only the most recent of3 resultswithin the time period is included. Iron 66 50 - 170 ug/dL [facility] Transferrin 127(L) 250 - 380 mg/dL [facility] TIBC 178(L) 211 - 406 ug/dL [facility] Iron Saturation (TSat) 37 22 - 52 % [facility] 09/30/2024 3:00 AM EDT 10/01/2024 1:31 PM EDT us Anthony Norton MD LAB BLOOD ORDERABLES Final Re sult [facility] [address] [place] [address] * (ABNORMAL) CBC and Differential (09/30/2024 3:00 AM EDT) Only the most recent of3 resultswithin the time period is included. Pathologist [facility] DIFFERENTIAL MANUAL, 2 Not Indicated [facility] White [...] Final Re sult Performing Organization Address [facility] de Phone Number [facility] [address] [place] [address] * ALT (09/30/2024 3:00 AM EDT) Only the most recent of3 resultswithin the time period is included. ALT (SGPT) 14 10 - 49 U/L [facility] 09/30/2024 3:00 AM EDT 10/01/2024 1:31 PM EDT Anthony Norton MD LAB BLOOD ORDERABLES Final Re sult Performing Organization Address [facility] de Phone Number [facility] [address] [place] [address] * AST (09/30/2024 3:00 AM EDT) Only the most recent of3 resultswithin the time period is included. AST (SGOT) 12 <34 U/L [facility] 09/30/2024 3:00 AM EDT 10/01/2024 1:31 PM EDT Anthony Norton MD LAB BLOOD ORDERABLES Final Re sult Performing Organization Address [facility] de Phone Number [facility] [address] [place] [address] * (ABNORMAL) Protein, total (09/30/2024 3:00 AM EDT) Only the most recent of3 resultswithin the time period is included. Total Protein 5.0(L) 6.4 - 8.9 g/dL [facility] 09/30/2024 3:00 AM EDT 10/01/2024 1:31 PM EDT us Anthony Norton MD LAB BLOOD ORDERABLES Final Re sult Performing Organization Address [facility] Co de Phone Number [facility] [address] [place] [address] * Alkaline phosphatase (09/30/2024 3:00 AM EDT) Only the most recent of3 resultswithin the time period is included. Alkaline Phosphatase 102 46 - 116 U/L [facility] 09/30/2024 3:00 AM EDT 10/01/2024 1:31 PM EDT us Anthony Norton MD LAB BLOOD ORDERABLES Final Re sult Performing Organization Address [facility] de Phone Number [facility] [address] [place] [address] * PTH, Intact (09/30/2024 3:00 AM EDT) [...] Final Re sult Performing Organization Address [facility] de Phone Number [facility] [address] [place] [address] * Magnesium (09/30/2024 3:00 AM EDT) Only the most recent of3 resultswithin the time period is included. Magnesium 2.0 1.9 - 2.7 mg/dL [facility] 09/30/2024 3:00 AM EDT 10/01/2024 1:31 PM EDT us Anthony Norton MD LAB BLOOD ORDERABLES Final Re sult Performing Organization Address [facility] de Phone Number [facility] [address] [place] [address] * (ABNORMAL) Lactate dehydrogenase (09/30/2024 3:00 AM EDT) Only the most recent of3 resultswithin the time period is included. LDH 300(H) 120 - 246 U/L [facility] 09/30/2024 3:00 AM EDT 10/01/2024 1:31 PM EDT Anthony Norton MD LAB BLOOD ORDERABLES Final Re sult Performing Organization Address [facility] de Phone Number [facility] [address] [place] [address] * (ABNORMAL) Hemoglobin A1c (09/30/2024 3:00 AM [...] Final Re sult Performing Organization Address [facility] de Phone Number [facility] [address] [place] [address] * (ABNORMAL) Ferritin (09/30/2024 3:00 AM EDT) Only the most recent of3 resultswithin the time period is included. Ferritin 2,081(H) 10 - 291 ng/mL [facility] 09/30/2024 3:00 AM EDT 10/01/2024 1:31 PM EDT Anthony Norton MD LAB BLOOD ORDERABLES Final Re sult Performing Organization Address [facility] de Phone Number [facility] [address] [place] [address] * (ABNORMAL) Creatinine, serum (09/30/2024 3:00 AM EDT) Only the most recent of2 resultswithin the time period is included. Creatinine 3.65(H) 0.55 - 1.02 mg/dL [facility] 09/30/2024 3:00 AM EDT 10/01/2024 1:31 PM EDT Anthony Norton MD LAB BLOOD ORDERABLES Final Re sult Performing Organization Address [facility] de Phone Number [facility] [address] [place] [address] * (ABNORMAL) Bilirubin, total (09/30/2024 3:00 AM EDT) Only the most recent of3 resultswithin the time period is included. Total Bilirubin 0.2(L) 0.3 - 1.2 mg/dL [facility] 09/30/2024 3:00 AM EDT 10/01/2024 1:31 PM EDT Anthony Norton MD LAB BLOOD ORDERABLES Final Re sult Performing Organization Address [facility] de Phone Number [facility] [address] [place] [address] * (ABNORMAL) Lipid panel (09/30/2024 3:00 AM [...] Final Re sult [facility] [address] [place] [address] * (ABNORMAL) Electrolyte panel (09/30/2024 3:00 AM [...] Final Re sult Performing Organization Address [facility] de Phone Number [facility] [address] [place] [address] * (ABNORMAL) Hemoglobin (09/26/2024 3:00 AM EDT) Only the most recent of2 resultswithin the time period is included. Hgb 8.9(L) 11.2 - 15.7 g/dL [facility] Hemoglobin x 3 26.7(L) 33.6 - 47.1 g/dL [facility] 09/26/2024 3:00 AM EDT 09/27/2024 1:27 PM EDT Anthony Nortno MD LAB BLOOD ORDERABLES Final Re sult Performing Organization Address [facility] de Phone Number [facility] [address] [place] [address] * (ABNORMAL) Creatinine clearance, urine, 24 hour [...] ORDERABLES Final Re sult Performing Organization Address [facility] de Phone Number [facility] [address] [place] [address] * (ABNORMAL) Hemoglobin and hematocrit (09/16/2024 3:00 AM EDT) Only the most recent of2 resultswithin the time period is included. Hgb 8.6(L) 11.2 - 15.7 g/dL [facility] Hematocrit 26.5(L) 34.1 - 44.9 % [facility] Hemoglobin x 3 25.8(L) 33.6 - 47.1 g/dL [facility] 09/16/2024 3:00 AM EDT 09/17/2024 1:04 PM EDT Anthony Norton MD LAB BLOOD ORDERABLES Final Re sult Performing Organization Address [facility] de Phone Number [facility] [address] [place] [address] * Phosphorus (09/16/2024 3:00 AM EDT) Phosphorus, Serum 3.8 2.5 - 5.0 mg/dL [facility] 09/16/2024 3:0 0 AM EDT 09/17/2024 1:09 PM EDT Anthony Norton MD LAB BLOOD ORDERABLES Final Re sult Performing Organization Address [facility] de Phone Number [facility] [address] [place] [address] * Confirmation Test HCV (08/08/2024 3:00 AM EST) Hep C Ab Confirmation Not needed [facility] 08/08/2024 3:00 AM EST 08/09/2024 1:15 PM EST Anthony Norton MD LAB BLOOD ORDERABLES Final Re sult Performing Organization Address [facility]/State/ZIP Co de Phone Number [facility] [address] [place] [address] * HEPATITIS C ABS W/REFLEX RNA DETECTR (08/08/2024 3:00 AM EST) [facility] Hep C Virus Ab Non-Reacti ve Non-Reacti ve [facility] 08/08/2024 3:00 AM EST 08/09/2024 1:17 PM EST Anthony Norton MD LAB [id number] SOLICITED RESULTS Final Result Performing Organization Address [facility] de Phone Number [facility] [address] [place] [address] * Hepatitis B Core Antibody, Total (08/08/2024 3:00 AM EST) [facility] HBc Total Ab, S Negative Negative [facility] 08/08/2024 3:00 AM EST 08/09/2024 1:17 PM EST Anthony Norton MD LAB BLOOD ORDERABLES Final Re sult Performing Organization Address [facility] de Phone Number [facility] [address] [place] [address] * Aluminum level (08/08/2024 3:00 AM EST) [facility] Aluminum 4 1 - 20 ug/L [facility] 08/08/2024 3:00 AM EST 08/09/2024 1:21 PM EST Anthony Norton MD LAB BLOOD ORDERABLES Final Re sult Performing Organization Address [facility] de Phone Number [facility] [address] [place] [address] * Vitamin D 25 Hydroxy (08/08/2024 3:00 AM EST) [facility] Vitamin D, 25-Hydroxy 38 30 - 100 ng/mL [facility] Comment: Status ? Adult ?? Pediatric Deficient: ? <20 ? <15 Insufficient: ??20-29 ?? 15-19 Sufficient: ?30-100 ??20-100 08/08/2024 3:00 AM EST 08/09/2024 1:17 PM EST Anthony Norton MD LAB BLOOD ORDERABLES Final Re sult Performing Organization Address [facility] Co de Phone Number [facility] [address] [place] [address] * (ABNORMAL) Hepatitis B Surface Antibody (08/08/2024 3:00 AM EST) Hep B Surface Antibody <4(A) mIU/mL [facility] Comment: Interpretation: <10: No Immunity >=10: Probable Immunity 08/08/2024 3:00 AM EST 08/09/2024 1:17 PM EST Anthony Norton MD LAB BLOOD ORDERABLES Final Re sult Performing Organization Address [facility] de Phone Number [facility] [address] [place] [address] * Uric Acid (08/08/2024 3:00 AM EST) Uric Acid 5.0 2.3 - 6.6 mg/dL [facility] 08/08/2024 3:00 AM EST 08/09/2024 1:17 PM EST Anthony Norton MD LAB BLOOD ORDERABLES Final Re sult Performing Organization Address [facility] de Phone Number [facility] [address] [place] [address] from Last 3 Months Insurance [facility] [place] [address] Care Teams Head Banquet Waiter/Waitress Relationship Specialty Start Date End Date Eloisa Vázquez [address] [place] [address] [phone] PCP - General Internal Medicine 07/11/24
--- OUTSIDE RECORDS SUMMARY | 2024-10-24 05:59 | XMS_ITS | Clinical Summary ---
Author Organization 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 Barriers: Renal Bx 07/22 w/ path pending, new HD, trend labs, H/H, heparin drip- LLE DVT, repeat Pt eval, lung mass biopsy 07/27 Plan: 1st choice - [facility] or [facility] d/t onsite HD. [facility] accepting w family to provide HD [...] and how their size, shape, and exchange architect time affect her level of suspicion for [...] weeks. 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 Hypertension 06/01/2024 Hyperlipidemia [...] complication, without long-term current use of insulin ([facility] V24, [facility] V28) 06/01/2024 Resolved Problems Problem Noted Date Diagnosed Date Resolved Date Acute encephalopathy 07/08/2024 025 Encounters Date Type Department Care Team Description 10/17/2024 1:20 PM EDT Telemedicine [address] [phone] Kathy Michelle PA Type 2 diabetes mellitus without complication, without long-term current use of insulin ([facility] V24, [facility] V28) (Primary Dx); CKD (chronic kidney disease) stage 4, GFR 15-29 ml/min ([facility] V24, [facility] V28) 09/12/2024 5:08 PM EDT - 09/13/2024 12:10 AM EDT Emergency [facility] Emergency [address] [place] [phone] Anthony Sparks MD Fall, initial encounter (Primary Dx); Acute cystitis without hematuria Discharge Disposition: Home or Self Care 09/06/2024 4:40 PM EDT Office Visit [address] [phone] Kathy Michelle PA Type 2 diabetes mellitus without complication, without long-term current use of insulin ([facility] V24, [facility] V28) (Primary Dx); CKD (chronic kidney disease) stage 4, GFR 15-29 ml/min ([facility] V24, [facility] V28); Primary hypertension 08/23/2024 3:00 PM EST Office Visit Gastroenterology - [address] [facility] [address] [facility] [address] [place] [phone] Josiane Smith, BI CONSULTANT Iron deficiency anemia, unspecified iron deficiency anemia type; History of cancer of unknown primary site 08/22/2024 8:30 AM EST - 08/22/2024 11:59 PM EST Hospital Encounter [facility] [address] [facility] 2nd [place] [phone] Chencho Wayne MD Crescentic glomerulonephritis (Primary Dx); Cresentic glomerulonephritis of transplanted kidney Discharge Disposition: Home or Self Care 08/22/2024 Social Work [facility] [address] [phone] 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 Andrews 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 08/15/2024 1:30 PM EST Office Visit Thoracic Surgery [facility] [address] [facility] [address] [place] [phone] Cecily Montez MD Pulmonary nodule (Primary Dx); Lung mass 08/11/2024 Telephone [facility] [address] [place] [phone] Nalini Clark RN 08/10/2024 10:00 AM EST Office Visit [facility] Hematology Oncology [address] [place] [phone] Jaime Grimaldo MD Lung mass (Primary Dx); Normocytic anemia; Chronic renal failure, stage 5 (CMS/HCC V24, CMS/HCC V28) 08/09/2024 Telephone Nephrology [address] [phone] Chencho Wayne MD provider call back 08/05/2024 11:46 AM EST Anesthesia Event [facility] Main OR [address] [place] [phone] Monroe Kim MD 08/05/2024 11:30 AM EST - 08/05/2024 1:30 PM EST Surgery [facility] Main OR [address] [place] [phone] Cecily Montez MD Navigation bronchoscopy/EBUS [71896 (CPT??) +2 more] 08/01/2024 [facility] [address] [place], [place] [address] [place] [phone] Eloisa Vázquez, Forms/questionnaires (PFML) 07/08/2024 10:31 AM EST - 08/06/2024 1:09 PM EST Hospital Encounter [facility] Urology Unit [address] [place] [phone] Jj Wolfe MD Flores, Carlos M, MD Japaridze, MD [place] Bess Omar D, MD Kokosadze, MD Kareen Musa James T, MD Seralathan, Manikandan, MD Anemia, unspecified type (Primary Dx); Hyponatremia; Acute on chronic renal insufficiency; Acute encephalopathy; Bilateral leg edema; Pulmonary nodule Discharge Disposition: Long Term Facility from Last 3 Months Surgical History [...] Description 11/11/2024 11:00 AM EDT Ancillary Procedure [facility] [address] [place] [phone] 11/14/2024 11:30 AM EDT Appointment [facility] CT Scan [address] [place] [phone] 11/18/2024 2:15 PM EDT Office Visit Internal Medicine - [address] [place] [address] Eloisa Vázquez, DO [address] [place] [address] 12/01/2024 10:00 AM EDT Office Visit Thoracic Surgery - [place] [address] [facility] [address] [place] [phone] Cecily Montez MD [address] [facility] [address] [place] [address] Health Maintenance Due Date Last Done Comments [...] exists Diabetes: Blood Sugar Control Test (HGBA1C) 04/01/2025 09/30/2024, 09/30/2024, 08/08/2024, Additional history exists Falls Risk Assessment 08/22/2025 08/22/2024 Hypertension/CHF/CAD Annual BMP Blood Test 10/10/2025 10/10/2024, 10/03/2024, 09/26/2024, Additional history exists Cholesterol Screening (Lipid Panel) 09/30/2029 09/30/2024, 08/08/2024, 05/31/2024 DTaP,Tdap,and Td Vaccines (3 - [...] this topic Medical Devices Implanted Type Area Housecleaner Device Identifier Shelf Expiration Date Model / Serial / Lot Cath Dial W/Vt Kt [id number] Palindrome Precision - [id number] - [id number] Implanted:Qty: 1 on 07/15/2024 by Fela Palomo MD at [facility] Dialysis Catheters Left: Chest Wall [facility] [id number] 09/26/2028 [id number] [id number] / [id number] / [id number] Sponge Surgifoam Gel 12 X 7mm - [id number] - [id number] Implanted:Qty: 1 on 05/23/2024 by Fela Paloom MD at [facility] Hemostasis Right: Lung [employer] [id number] 08/27/20271971 / [id number] / Sponge Surgifoam Gel 12 X 7mm - [id number] - [id number] Implanted:Qty: 1 on 07/22/2024 by Fela Palomo MD at [facility] Hemostasis Left: Kidney [employer] [id number] 05/24/20281971 [id number] / Procedures Procedure Name Priority Date/Time Associated [...] ENDOTRACHEAL(NO CHARGE) Routine 08/05/2024 12:08 PM EST VT BRONCHOSCOPY RIGID/FLEXIBLE W/EBUS >=3 MEDIASTINAL/HILAR LYMPH NODES 08/05/2024 11:46 AM EST Pulmonary nodule VT BRONCHOSCOPY INCL FLUROSCOPIC GUIDANCE W PLCMNT FIDUCIAL MARKER SGL/MULT 08/05/2024 11:46 AM EST Pulmonary nodule VT BRONCHOSCOPY RIGID/FLEXIBLE INCL FLUORO W/THERAPY ASPIRATION INITIAL [...] ANTI XA Routine 07/26/2024 6:06 AM EST HEMOGLOBIN A1C Routine 05/31/2024 9:22 AM EST Cataract, diabetic ([facility] V24, CMS/[facility] V28) LIPID PANEL WITH REFLEX TO DIRECT LDL Routine 05/31/2024 9:22 AM EST Iron deficiency anemia, unspecified Cataract, diabetic (CMS/HCC V24, CMS/HCC V28) Hyperlipemia JODY DEXA AXIAL SKELETON Routine 04/15/2018 10:29 AM EDT Encounter for screening for osteoporosis from Last 3 Months or Most Recently Relevant to Health Maintenance Results * ECG-Annotated (09/13/2024) us Provider Onbase MD ECG ORDERABLES Final Result * ECG 12 lead (09/12/2024 9:12 PM EDT) Only the most recent of2 resultswithin the time period is included. Pathologist [facility] Ventricular Rate ECG 83 BPM GEMUSE Atrial Rate 83 BPM GEMUSE P-R Interval 178 ms GEMUSE QRS Duration 130 ms GEMUSE Q-T Interval 394 ms GEMUSE QTc 462 ms GEMUSE P Wave [place] 66 degrees GEMUSE R [place] 15 degrees GEMUSE T [place] 11 degrees GEMUSE ECG Interpretation Sinus rhythm with Premature atrial complexes Right bundle branch block Abnormal ECG When compared with ECG of 12-SEP-2024 21:12, No significant change was found Confirmed by MD Ramon, Amber ([id number]) on 09/14/2024 10:02:49 AM GEMUSE 09/12/2024 9:12 PM EDT 09/14/2024 10:02 AM EDT us Jose HEDRICK ECG ORDERABLES Final Result Performing Organization Address [place]/[facility] Co de Phone Number GEMUSE * (ABNORMAL) Troponin I high sensitivity (NOW and then in 1 hour) (09/12/2024 8:27 PM EDT) Only the most recent of2 resultswithin the time period is included. [facility] High Sensitivity Troponin I 110(H) <=54 ng/L LAB CHEMISTRY METHOD 09/12/2024 10:11 PM EDT [facility] Blood Venous blood specimen / Unknown Venipuncture / Unknown 09/12/2024 8:27 PM EDT 09/12/2024 9:33 PM EDT Narrative [facility] - 09/12/2024 10:11 PM EDT High levels of biotin in samples may falsely decrease hsTroponin values. ??Use caution when interpreting hsTroponin results in patients taking biotin who exhibit renal impairment (eGFR <60) or in patients taking more than 20 mg/day of biotin. us Madan Braga MD LAB BLOOD ORDERABLES Final Resu lt [facility] [address] [place] [address], * CT Cervical Spine wo Contrast (09/12/2024 [...] MD on 09/12/2024 20:55:04 Madan Braga MD IM CT PROCEDURES Final Result * CT Head [...] MD on 09/12/2024 20:56:04 Madan Braga MD IM CT PROCEDURES Final Result * (ABNORMAL) Urinalysis with reflex microscopic and culture (09/12/2024 6:38 PM EDT) Specific [place] Urine 1.025 1.003 - 1.030 LAB URINALYSIS - AUTOMATED METHOD 09/12/2024 8:45 PM [facility] pH, Urine 6.5 5.0 - 8.0 pH LAB URINALYSIS - AUTOMATED METHOD 09/12/2024 8:45 PM T [facility] Leukocytes, Urine Moderate(A) Negative LAB URINALYSIS - AUTOMATED METHOD 09/12/2024 8:45 PM [facility] Nitrite, Urine Negative Negative LAB URINALYSIS - AUTOMATED METHOD 09/12/2024 8:45 PM [facility] Protein, Urine >=300(A) <=Trace mg/dL LAB URINALYSIS - AUTOMATED METHOD 09/12/2024 8:45 PM [facility] Glucose, Urine 100(A) Negative mg/dL LAB URINALYSIS - AUTOMATED METHOD 09/12/2024 8:45 PM [facility] Ketones, Urine Negative Negative mg/dL LAB URINALYSIS - AUTOMATED METHOD 09/12/2024 8:45 PM [facility] Urobilinogen , Urine 0.2 0.2 - 1.0 mg/dL LAB URINALYSIS - AUTOMATED METHOD 09/12/2024 8:45 PM [facility] Bilirubin, Urine Negative Negative LAB URINALYSIS - AUTOMATED METHOD 09/12/2024 8:45 PM [facility] Blood, Urine Large(A) Negative LAB URINALYSIS - AUTOMATED METHOD 09/12/2024 8:45 PM [facility] RBC, Urine 10(H) 0 - 4 /HPF 09/12/2024 8:45 PM [facility] WBC, Urine >100(H) 0 - 4 /HPF 09/12/2024 8:45 PM [facility] Squamous Epithelial, Urine 50 0 - 60 /LPF 09/12/2024 8:45 PM [facility] Non-Squamous Epithelial, Urine 2-5 Transitional epithelial cells. /LPF 09/12/2024 8:45 PM [facility] Bacteria, Urine Many(A) Negative /HPF 09/12/2024 8:45 PM [facility] Hyaline Casts, Urine 3 0 - 3 /LPF 09/12/2024 8:45 PM [facility] Other Casts, Urine 2-5 Coarse Granular casts. Rare Fine Granular casts. Rare Waxy casts. /LPF 09/12/2024 8:45 PM [facility] Urine Urine specimen obtained by clean catch procedure / Unknown Non-blood Collection / Unknown 09/12/2024 6:38 PM EDT 09/12/2024 7:59 PM EDT Anthony Sparks MD LAB URINE ORDERABLES Final Result Performing Organization Address [place]/[facility]/ZIP Co de Phone Number [facility] [address] [place] [address], [place] [phone] * Robertson urine culture tube (09/12/2024 6:38 PM EDT) Pathologist [facility] Extra Tube Hold for add-ons. 09/12/2024 9:01 PM EDT [facility] Comment:Auto resulted. Urine Urine specimen obtained by clean catch procedure / Unknown Non-blood Collection / Unknown 09/12/2024 6:38 PM EDT 09/12/2024 7:59 PM EDT Anthony Sparks MD LAB URINE ORDERABLES Final Result Performing Organization Address [place]/[facility] Co de Phone Number [facility] [address] [place] [address], [place] [phone] * (ABNORMAL) Culture urine (09/12/2024 6:38 PM EDT) Pathologist [facility] Culture, Urine >100,000 CFU/mL Pseudomonas aeruginosa(A) KIRILL 09/16/2024 9:53 AM EDT [facility] Comment: This is an edited result. Previous organism was Gram negative bacilli on 09/15/2024 at 1216 EDT. Culture, Urine >100,000 CFU/mL Enterococcus faecalis(A) KIRILL 09/16/2024 9:53 AM EDT [facility] Comment: The organism value for [...] LAB MICROBIOLOGY - GENERAL ORDERABLES Final Result [facility] [address] [place] [address], * (ABNORMAL) CBC auto differential (09/12/2024 6:22 PM EDT) Only the most recent of7 resultswithin the time period is included. [facility] Signature WBC 6.9 4.8 - 10.8 K/mcL LAB HEMETOLOGY METHOD 09/12/2024 6:51 PM EDT [facility] RBC 2.80(L) 3.80 - 4.80 M/mcL LAB HEMETOLOGY METHOD 09/12/2024 6:51 PM EDT [facility] Hemoglobin 8.2(L) 11.5 - 16.0 g/dL LAB HEMETOLOGY METHOD 09/12/2024 6:51 PM EDT [facility] Hematocrit 25.2(L) 35.0 - 47.0 % LAB HEMETOLOGY METHOD 09/12/2024 6:51 PM EDT [facility] MCV 90.0 79.0 - 98.0 FL LAB HEMETOLOGY METHOD 09/12/2024 6:51 PM EDT [facility] MCH 29.3 27.0 - 32.0 pcg LAB HEMETOLOGY METHOD 09/12/2024 6:51 PM EDT [facility] MCHC 32.5 32.0 - 37.0 g/dL LAB HEMETOLOGY METHOD 09/12/2024 6:51 PM EDT [facility] RDW 20.2(H) 11.0 - 15.0 % LAB HEMETOLOGY METHOD 09/12/2024 6:51 PM EDT [facility] Platelets 179 130 - 400 K/mcL LAB HEMETOLOGY METHOD 09/12/2024 6:51 PM EDT [facility] MPV 10.4 7.0 - 11.0 FL LAB HEMETOLOGY METHOD 09/12/2024 6:51 PM EDT [facility] NRBC 0.0 <1.0 % LAB HEMETOLOGY METHOD 09/12/2024 6:51 PM EDT [facility] NRBC Absolute 0.00 <0.10 K/mcL LAB HEMETOLOGY METHOD [facility] Neutrophils Relative 88.7 % LAB HEMETOLOGY METHOD 09/12/2024 6:51 PM EDT [facility] Lymphocytes Relative 6.7 % LAB HEMETOLOGY METHOD 09/12/2024 6:51 PM EDT [facility] Monocytes Relative 3.0 % LAB HEMETOLOGY METHOD 09/12/2024 6:51 PM EDT [facility] Eosinophils Relative 0.1 % LAB HEMETOLOGY METHOD 09/12/2024 6:51 PM EDT [facility] Basophils Relative 0.0 % LAB HEMETOLOGY METHOD 09/12/2024 6:51 PM EDT [facility] Immature Granulocytes Relative 1.5 % LAB HEMETOLOGY METHOD 09/12/2024 6:51 PM EDT [facility] Neutrophils Absolute 6.11 1.50 - 7.00 K/mcL LAB HEMETOLOGY METHOD 09/12/2024 6:51 PM EDT [facility] Lymphocytes Absolute 0.46(L) 1.00 - 5.00 K/mcL LAB HEMETOLOGY METHOD 09/12/2024 6:51 PM EDT [facility] Monocytes Absolute 0.21 0.20 - 1.00 K/mcL LAB HEMETOLOGY METHOD 09/12/2024 6:51 PM EDT [facility] Eosinophils Absolute 0.01 0.00 - 0.50 K/mcL LAB HEMETOLOGY METHOD 09/12/2024 6:51 PM EDT [facility] Basophils Absolute 0.00 0.00 - 0.20 K/mcL LAB HEMETOLOGY METHOD 09/12/2024 6:51 PM EDT [facility] Immature Granulocytes Absolute 0.10(H) 0.00 - 0.03 K/mcL LAB HEMETOLOGY METHOD 09/12/2024 6:51 PM EDT [facility] Blood Venous blood specimen / Unknown Venipuncture / Unknown 09/12/2024 6:22 PM EDT 09/12/2024 6:42 PM EDT us Madan Braga MD LAB BLOOD ORDERABLES Final Resu lt [facility] [address] [place] [address], * (ABNORMAL) Basic Metabolic Panel (BMP) (09/12/2024 6:22 PM EDT) Only the most recent of8 resultswithin the time period is included. [facility] Signature Sodium 137 133 - 145 mmol/L LAB CHEMISTRY METHOD 09/12/2024 7:15 PM [facility] Potassium 4.1 3.5 - 5.5 mmol/L LAB CHEMISTRY METHOD 09/12/2024 7:15 PM [facility] Chloride 103 96 - 110 mmol/L LAB CHEMISTRY METHOD 09/12/2024 7:15 PM [facility] CO2 24 21 - 32 mmol/L LAB CHEMISTRY METHOD 09/12/2024 7:15 PM [facility] Anion Gap 10 3 - 11 LAB CHEMISTRY METHOD 09/12/2024 7:15 PM [facility] Glucose 204(H) 70 - 100 mg/dL LAB CHEMISTRY METHOD 09/12/2024 7:15 PM [facility] BUN 30(H) 5 - 25 mg/dL LAB CHEMISTRY METHOD 09/12/2024 7:15 PM [facility] Creatinine 2.36(H) 0.50 - 1.10 mg/dL LAB CHEMISTRY METHOD 09/12/2024 7:15 PM [facility] eGFR 20(L) >=60 mL/min/1. 73m2 LAB CHEMISTRY METHOD 09/12/2024 7:15 PM [facility] Comment:Calculation based on the??Chronic Kidney Disease Epidemiology Collaboration (CKD-EPI) equation refit??without adjustment for race. BUN/Creatinine Ratio 12.7 LAB CHEMISTRY METHOD 09/12/2024 7:15 PM [facility] Calcium 8.0(L) 8.5 - 10.5 mg/dL LAB CHEMISTRY METHOD 09/12/2024 7:15 PM [facility] Blood Venous blood specimen / Unknown Venipuncture / Unknown 09/12/2024 6:22 PM EDT 09/12/2024 6:42 PM EDT us Madan Braga MD LAB BLOOD ORDERABLES Final Resu lt [facility] [address] [place] [address], [place] [phone] * (ABNORMAL) POCT Glucose, blood (08/06/2024 11:07 AM EST) Only the most recent of43 resultswithin the time period is included. Glucose POCT 187(H) 70 - 100 mg/dL 08/06/2024 11:09 AM EST [facility] Blood Capillary blood specimen / Unknown 08/06/2024 11:07 AM EST 08/06/2024 11:10 AM EST Steve Cruz MD LAB POINT OF CA RE TEST DOCKED DEVICE UNSOLICITED RESULTS Final Result [facility] [address] [place] [address], [place] [phone] * XR Chest 1 View (08/05/2024 1:43 [...] Signed Date: 08/05/2024 13:49 ET Workstation ID: [id number] Transcribed By: Self Edit Transcribed Date: 08/05/2024 [...] Signed Date: 08/05/2024 13:49 ET Workstation ID: [id number] Transcribed By: Self Edit Transcribed Date: 08/05/2024 13:46 ET us Cecily Montez MD IMG XR PROCEDURES Final Result * Culture bronchial with gram stain (08/05/2024 12:32 PM EST) Bronchial Culture No growth at 3 days 08/08/2024 9:42 AM EST [facility] Gram Stain Result No polymorphonuclear leukocytes, No epithelial cells, and No organisms noted 08/08/2024 9:42 AM EST [facility] Wash Structure of upper lobe of right lung / Unknown 08/05/2024 12:32 PM EST 08/05/2024 1:17 PM EST us Cecily Montez MD LAB MICROBIOLOGY - GENERAL ORDER SYLVAIN Final Result [facility]) [facility] [address] [place] [address], * Concentration (08/05/2024 12:32 PM EST) AFB Concentration Performed 5:05 PM EDT [facility] Wash Structure of upper lobe of right lung / Unknown 08/05/2024 12:32 PM EST 08/05/2024 1:17 PM EST Narrative [facility] - 09/19/2024 5:05 PM EDT Performed at: ??01 - [facility] [address] ??[id number] Comic Writer: Diane Belle MD, Phone: ??[phone] us Cecily Montez MD LAB BLOOD ORDERABLES [...] PM EDT Performed at: ??01 - [facility] [address] ??[id number] Comic Writer: Diane Belle MD, Phone: ??[phone] us Cecily Montez MD LAB MICROBIOLOGY - GENERAL ORDER SYLVAIN Final Result Performing Organization Address [place]/[facility] Co de Phone Number [facility] * Acid [...] ORDER SYLVAIN Final Result Performing Organization Address City/[facility]/ZIP Co de Phone Number [facility] [address] [place] [address], [place] [phone] * Culture fungal, other (08/05/2024 12:32 PM EST) Culture, Fungus Negative for Fungus after 4 Weeks 09/05/2024 8:16 AM EDT [facility] Wash Structure of upper lobe of right lung / Unknown 08/05/2024 12:32 PM EST 08/05/2024 1:17 PM EST Cecily Montez MD LAB MICROBIOLOGY - GENERAL ORDER SYLVAIN Final Result [facility] [address] [place] [address], [place] [phone] * Non-gynecologic cytology (08/05/2024 12:20 PM EST) [...] node elements present. 08/09/2024 1:04 PM EST [facility] Specimen A Adequacy Satisfactory for evaluation 08/09/2024 1:04 PM EST [facility] Specimen B Adequacy Satisfactory for evaluation 08/09/2024 1:04 PM [facility] Specimen C Adequacy Satisfactory for evaluation 08/09/2024 1:04 PM [facility] Specimen D Adequacy Satisfactory for evaluation 08/09/2024 1:04 PM [facility] Specimen E Adequacy Specimen processed and examined, but unsatisfactory for eval of abnormal epithelial 08/09/2024 1:04 PM [facility] Specimen F Adequacy Satisfactory for evaluation 08/09/2024 1:04 PM [facility] Gross Description A. Lung, [...] fixation time 54 hours. 08/09/2024 1:04 PM [facility] Disclaimer Unless otherwise specified, all tissue is 10% NB formalin fixed and paraffin embedded. Technical cytopathology services provided by [facility], at [address] [place] [address] ([facility] # [id number]/Gladys Prince MD, Environmental Officer.) 08/09/2024 1:04 PM EST [facility] Brushing, function (observable entity) [...] MD LAB CYTOLOGY ORDERABLES Final Re sult [facility] ([facility]) [facility] [address] [place] [address], * TH AN ENDOTRACHEAL(NO CHARGE) (08/05/2024 12:08 PM EST) Narrative Candelaria Tatum CRNA - 08/05/2024 12:08 PM EST Candelaria Tatum CRNA ? 08/05/2024 12:10 PM General Information and Staff Patient location during procedure: OR Anesthesiologist: Monroe Kim MD Resident/PSYCHOLOGY ASSISTANT: Candelaria Tatum CRNA Performed: resident/PSYCHOLOGY ASSISTANT/CAA Performed by: Candelaria Tatum CRNA Authorized by: [...] assessment: 1 - vent by mask us Monore Kim MD ANESTHESIA ORDERABLES Final Re sult * (ABNORMAL) CBC - Every 3 Days (08/05/2024 7:03 AM EST) Only the most recent of6 resultswithin the time period is included. Pathologist [facility] WBC 8.8 4.8 - 10.8 K/mcL LAB HEMETOLOGY METHOD 08/05/2024 7:42 AM [facility] RBC 2.90(L) 3.80 - 4.80 M/mcL LAB HEMETOLOGY METHOD 08/05/2024 7:42 AM [facility] Hemoglobin 7.9(L) 11.5 - 16.0 g/dL LAB HEMETOLOGY METHOD 08/05/2024 7:42 AM [facility] Hematocrit 25.5(L) 35.0 - 47.0 % LAB HEMETOLOGY METHOD 08/05/2024 7:42 AM [facility] MCV 87.6 79.0 - 98.0 FL LAB HEMETOLOGY METHOD 08/05/2024 7:42 AM [facility] MCH 27.1 27.0 - 32.0 pcg LAB HEMETOLOGY METHOD 08/05/2024 7:42 AM EST [facility] MCHC 31.0(L) 32.0 - 37.0 g/dL LAB HEMETOLOGY METHOD 08/05/2024 7:42 AM [facility] RDW 21.9(H) 11.0 - 15.0 % LAB HEMETOLOGY METHOD 08/05/2024 7:42 AM [facility] Platelets 180 130 - 400 K/mcL LAB HEMETOLOGY METHOD 08/05/2024 7:42 AM [facility] MPV 10.8 7.0 - 11.0 FL LAB HEMETOLOGY METHOD 08/05/2024 7:42 AM [facility] NRBC 0.0 <1.0 % LAB HEMETOLOGY METHOD 08/05/2024 7:42 AM [facility] NRBC Absolute 0.00 <0.10 K/mcL LAB HEMETOLOGY METHOD 08/05/2024 7:42 AM [facility] Blood Venous blood specimen / Unknown Venipuncture / Unknown 08/05/2024 7:03 AM EST 08/05/2024 7:34 AM EST [facility] LAB BLOOD ORDERABLES Final R esult [facility] [address] [place] [address], * (ABNORMAL) Creatinine, Serum - Every 7 Days (08/04/2024 6:31 AM EST) Creatinine 2.49(H) 0.50 - 1.10 mg/dL LAB CHEMISTRY METHOD 08/04/2024 7:31 AM [facility] [facility] eGFR 19(L) >=60 mL/min/1. 73m2 LAB CHEMISTRY METHOD 08/04/2024 7:31 AM [facility] Comment:Calculation based on the??Chronic Kidney Disease Epidemiology Collaboration (CKD-EPI) equation refit??without adjustment for race. Blood Venous blood specimen / Unknown Venipuncture / Unknown 08/04/2024 6:31 AM EST 08/04/2024 6:54 AM EST Jonny Mathur MD LAB BLOOD ORDERABLES Final Re sult Performing Organization Address [place]/[facility] Co de Phone Number [facility] [address] [place] [address], * Hepatitis B surface antigen with reflex [...] ORDERABLES Fi nal Result Performing Organization Address [place]/[facility] Co de Phone Number [facility] [address] [place] [address], * Hepatitis B surface antibody quantitative (08/03/2024 8:49 AM EST) Hepatitis B Surface Ab Negative Negative LAB CHEMISTRY METHOD 08/03/2024 9:59 AM EST [facility] Hepatitis B Surface Ab Quantitative <3.1 mIU/mL LAB CHEMISTRY METHOD 08/03/2024 9:59 AM EST [facility] Blood Venous blood specimen / Unknown Venipuncture / Unknown 08/03/2024 8:49 AM EST 08/03/2024 9:22 AM EST Narrative [facility] - 08/03/2024 9:59 AM EST >=10 mIU/mL is considered to be consistent with immunity. us Steve Cruz MD LAB BLOOD ORDERABLES Fi nal Result Performing Organization Address [place]/[facility]/ZIP Co de Phone Number [facility] [address] [place] [address], [place] [phone] * Phosphorus (08/03/2024 6:01 AM EST) Phosphorus 4.3 2.5 - 4.5 mg/dL LAB CHEMISTRY METHOD 08/03/2024 8:11 AM EST [facility] Blood Venous blood specimen / Unknown Venipuncture / Unknown 08/03/2024 6:01 AM EST 08/03/2024 7:27 AM EST us Steve Cruz MD LAB BLOOD ORDERABLES Fi nal Result Performing Organization Address [place]/[facility]/ZIP Co de Phone Number [facility] [address] [place] [address], [place] [phone] * Magnesium (08/03/2024 6:01 AM EST) Magnesium 2.1 1.9 - 2.6 mg/dL LAB CHEMISTRY METHOD 08/03/2024 8:11 AM EST [facility] Blood Venous blood specimen / Unknown Venipuncture / Unknown 08/03/2024 6:01 AM EST 08/03/2024 7:27 AM EST us Steve Cruz MD LAB BLOOD ORDERABLES Fi nal Result Performing Organization Address [place]/[facility]/ZIP Co de Phone Number [facility] [address] [place] [address], [place] [phone] * Type and screen (08/02/2024 3:04 PM EST) ABO Group O 08/02/2024 4:52 PM [facility] Rh Type Positive 08/02/2024 4:52 PM [facility] Antibody Screen Negative 08/02/2024 4:52 PM [facility] Blood Venous blood specimen / Unknown Venipuncture / Unknown 08/02/2024 3:04 PM EST 08/02/2024 4:07 PM EST Steve Cruz MD LAB BLOOD BANK TEST ORD ERABLES Final Result [facility] [address] [place] [address], * Prepare RBC: 1 Units (08/02/2024 2:09 PM EST) Product Code [id number] 08/02/2024 6:27 PM [facility] Unit Number [id number] 08/02/19 6:27 PM [facility] Crossmatch Compatible 08/02/2024 5:03 PM [facility] Dispense Status Transfused 08/02/2024 6:27 PM [facility] Unit ABO Rh OPOS 08/02/2024 6:27 PM [facility] Unit Expiration Date Time [id number] 08/02/2024 6:27 PM [facility] Unit Blood Type 5100 08/02/2024 6:27 PM [facility] Blood Venous blood specimen / Unknown 08/02/2024 2:09 PM EST 08/02/2024 4:07 PM EST Steve Cruz MD BLOOD BANK PRODUCT ORDE TEJASLES Final Result Performing Organization Address [place]/[facility]/ZIP Co de Phone Number [facility] [address] [place] [address], [place] [phone] * (ABNORMAL) Hemoglobin and hematocrit (07/31/2024 2:30 PM EST) Only the most recent of2 resultswithin the time period is included. [facility] Hemoglobin 7.3(L) 11.5 - 16.0 g/dL [...] ORDERABLES Final Re sult Performing Organization Address [place]/[facility]/ZIP Co de Phone Number [facility] [address] [place] [address], [place] [phone] * (ABNORMAL) Hepatic Function Panel - STAT (07/30/2024 11:52 AM EST) [facility] Total Protein 5.2(L) 6.0 - 8.0 g/dL LAB CHEMISTRY METHOD 07/30/2024 12:56 PM EST [facility] Albumin 2.4(L) 3.2 - 5.0 g/dL LAB CHEMISTRY METHOD 07/30/2024 12:56 PM EST [facility] Total Bilirubin 0.4 0.0 - 1.4 mg/dL LAB CHEMISTRY METHOD 07/30/2024 12:56 PM EST [facility] Bilirubin, Direct 0.2 0.0 - 0.3 mg/dL LAB CHEMISTRY METHOD 07/30/2024 12:56 PM EST [facility] Bilirubin, Indirect 0.2 0.0 - 1.1 mg/dL LAB CHEMISTRY METHOD 07/30/2024 12:56 PM [facility] ALT (SGPT) 17 10 - 60 unit/L LAB CHEMISTRY METHOD 07/30/2024 12:56 PM [facility] AST (SGOT) 12 10 - 42 unit/L LAB CHEMISTRY METHOD 07/30/2024 12:56 PM [facility] Alkaline Phosphatase 80 42 - 121 unit/L LAB CHEMISTRY METHOD 07/30/2024 12:56 PM [facility] Blood Venous blood specimen / Unknown Venipuncture / Unknown 07/30/2024 11:52 AM EST 07/30/2024 12:28 PM EST Jonny Mathur MD LAB BLOOD ORDERABLES Final Re sult [facility] [address] [place] [address], [place] [phone] * (ABNORMAL) Heparin and low molecular weight anti Xa level (07/30/2024 6:10 AM EST) Only the most recent of11 resultswithin the time period is included. Heparin [...] ORDERABLES Final Re sult Performing Organization Address [facility] de Phone Number [facility] [address] [place] [address], * Hepatitis B core antibody IgM (07/28/2024 [...] ORDERABLES Final Res ult Performing Organization Address [facility] de Phone Number [facility] [address] [place] [address], * Hepatitis B surface antibody (07/28/2024 12:19 PM EST) [facility] Hepatitis B Surface Ab Negative Negative [...] Res ult [facility] [address] [place] [address], [place] [phone] * Lipid panel with reflex to direct LDL (05/31/2024 9:22 AM EST) Cholesterol 131 0 - 200 mg/dL LAB CHEMISTRY METHOD 05/31/2024 12:51 PM EST [facility] Triglycerides 113 0 - 150 mg/dL LAB CHEMISTRY METHOD 05/31/2024 12:51 PM EST [facility] HDL 60 >=40 mg/dL LAB CHEMISTRY METHOD 05/31/2024 12:51 PM EST [facility] LDL Calculated 48 0 - 100 mg/dL LAB CHEMISTRY METHOD 05/31/2024 12:51 PM EST [facility] VLDL Cholesterol Hunter 22.6 mg/dL LAB CHEMISTRY METHOD 05/31/2024 12:51 PM EST [facility] Non HDL Chol. (LDL+VLDL) 71 <145 mg/dL LAB CHEMISTRY METHOD 05/31/2024 12:51 PM EST [facility] Chol/HDL Ratio 2.2 0.0 - 4.4 LAB CHEMISTRY METHOD 05/31/2024 12:51 PM EST [facility] Blood Venous blood specimen / Unknown Venipuncture / Unknown 05/31/2024 9:22 AM EST 05/31/2024 9:22 AM EST Kayleigh Pedraza NP LAB BLOOD ORDERABLES Final Resul t [facility] [address] [place] [address], [place] [phone] * JODY DEXA AXIAL SKELETON (04/15/2018 10:29 AM EDT) Anatomical Region Laterality Modality Mammography 04/15/2018 9:39 AM EDT Narrative 04/15/2018 10:29 [facility] [address] [place] [address] Patient: ??CONTRERAS,ANA A ?/Age/Sex: 1945 - 73 - F Unit#: ??[id number] ? Location/Status: ??SPDIMAM/REG CLI ? Mnemonic/Ordering Site: ??[facility]/SPMAM Ordering Physician: ??VIVIEN SANTIZO MD [facility] Dexa Axial Skeleton - 04/15/181003 HISTORY: ??The [...] probability of hip fracture of 2.2%. Code 98014 Dictating Physician: ??JAILYN BARAHONA MD Electronically Signed by: ??JAILYN BARAHONA MD Dic Date/Time: ??04/15/18 1028 Sign date/Time: ??04/15/18 1029 Procedure Note Jailyn Barahona MD - 06/17/2022 [facility] Diagnostic Imaging Department [address] [place] [address] Patient: RICHIE CONTRERASYARED Chaparro D.O.B./Age/Sex: 1945 - 73 - F Unit#: [id number] Location/Status: [facility] Ordering Physician: VIVIEN SANTIZO MD [facility] Dexa Axial Skeleton - 04/15/18 - 1004 [...] density of the femurs bilaterally is 0.854 gm/nn4vginf is 85% of that of young normals [...] probability of hip fracture of 2.2%. 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
[2024-10-24 06:08] LABS: Basophils Percent Auto 0.2 % (0-2); Eosinophils Percent Auto 0.1 % (0-4); Hematocrit 28.1 % (37.0-47.0); Hemoglobin 9.2 g/dl (12.0-16.0); Imm Gran Abs Auto 0.36 X10*3/uL (0.00-0.03); Imm Gran Pct Auto 3.9 % (0.0-0.4); Lymphocytes Percent Auto 10.9 % (20-40); Mean Corpuscular HGB Conc 32.7 g/dl (31.0-35.0); Mean Corpuscular Hemoglobin 31.9 pg (27.0-33.0); Mean Corpuscular Volume 97.6 fL (80.0-98.0); Mean Platelet Volume 10.7 fL (9.4-12.3); Monocytes Absolute Auto 0.6 X10*3/uL (0.1-1.2); Monocytes Percent Auto 6.6 % (2-11); NRBC Pct Auto 1.1 /100WBC (0.0-0.2); Neutrophils Absolute Auto 7.2 x10*3/uL (2.0-8.3); Neutrophils Percent Auto 78.3 % (45-73); Platelet Count 196 X10*3/uL (160-400); Red Blood Count 2.88 X10*6/uL (4.20-5.50); Red Cell Distribution Width 15.7 % (11.0-16.0); White Blood Count 9.2 X10*3/uL (4.8-10.8)
[2024-10-24 06:09] LABS: MANUAL DIFF FLAG SCAN
[2024-10-24 06:31] LABS: Estimated Average Glucose 169 mg/dL; Hemoglobin A1C 144.4361 umol/L; Hemoglobin A1c % 7.5 % (<6.0); Total Hemoglobin (HGBA1C) 2486.4215 umol/L
[2024-10-24 06:41] LABS: Anion Gap 18 (12-20); Blood Urea Nitrogen 72 mg/dL (9-16); Calcium 8.1 mg/dL (8.4-10.2); Carbon Dioxide 18 mmol/L (22-29); Chloride 101 mmol/L (96-108); Estimated Glomerular Filt Rate 14; Glucose Random 284 mg/dL (60-115); Potassium 4.4 mmol/L (3.3-5.1); Sodium 133 mmol/L (135-145)
[2024-10-24 06:56] LABS: Thyroid Stimulating Hormone 2.13 uIU/mL (0.32-4.0)
[2024-10-24 07:08] LABS: SLIDE REVIEW VERIFIED
== END 2024-10-24 05:51 | disposition home or self-care (01) ==
LOC: HO.MMNH1L 05:50
PROVIDERS: Nurse Practitioner Family; Visit Provider Family Medicine
DX: E11.9 Type 2 diabetes mellitus without complications (principal); J18.9 Pneumonia, unspecified organism; M62.59 Muscle wasting and atrophy, not elsewhere classified, multiple sites
CPT/HCPCS: 36415; 80048; 83036; 84443; 85025

== ENCOUNTER 2024-10-31 06:28 | Outpatient (REF) | payer MEDICARE, SELFPAY ==
[2024-10-31 06:04] LABS: MANUAL DIFF FLAG NO
--- OUTSIDE RECORDS SUMMARY | 2024-10-31 06:30 | XMS_ITS | Encounter Summary ---
Author Organization [facility] Address [address] [place] [address] Care Team Providers Care Track Repair Worker Name Role Phone Marie Vázquezmankamryn CHERY Primary Care Provider [phone] Encounter Details Date Type Department Care Team (Late st Contact Info) Description 04/12/2024 1:41 PM EDT Hospital Encounter TH HISTORIC ENCOUNTERS EASTERN CONVERSION ONLY Jaime Grimaldo MD [address] [place] [address] Social History Tobacco Use Types Packs/Day Years [...] Description 11/11/2024 11:00 AM EDT Ancillary Procedure [facility] [address] [facility] [address] [place] [address] 11/14/2024 11:30 AM EDT Appointment [facility] CT Scan [address] [place] [phone] 12/01/2024 10:00 AM EDT Office Visit Thoracic Surgery - [place] [address] [phone] Cecily Montez MD [address] [facility] [address] [place] [address] 12/08/2024 1:15 PM EDT Office Visit Internal Medicine - [place] [address] [facility] [place] [phone] Marie VázquezmanaDO [address] [facility] [place] [address] documented as of this encounter Procedures Procedure [...] documented as of this encounter Care Teams Track Repair Worker Relationship Specialty Start Date End Date Marie VázquezmanDO akmryn [address] [facility] [place] [address] PCP - General 04/12/24 documented as of this encounter
--- OUTSIDE RECORDS SUMMARY | 2024-10-31 06:30 | XMS_ITS | Clinical Summary ---
Author Organization [facility] Address [address] [place] [address] Care Team Providers Care Lithographic Photographer Apprentice Name Role Phone Eloisa Vázquez DO Primary Care Provider [phone] Allergies No known active allergies Medications cetirizine (ZyrTEC) 10 mg chewable tablet Take 1 tablet (10 mg total) by mouth daily., Active CRANBERRY ORAL Take by mouth A ctive ferrous sulfate 325 mg (65 mg iron) EC tablet Do not crush, chew, or split. Take 1 tablet (325 mg total) by mouth every morning with breakfast Active cholecalcifero l (VITAMIN D-3) 50 mcg (2,000 unit) capsule Take 1 capsule (2,000 Units total) by mouth 1 (one) time each day. Active apixaban (ELIQUIS) 5 mg tablet Take 2 tablets (10 mg total) by mouth 2 (two) times a day for 3 days, THEN 1 tablet (5 mg total) 2 (two) times a day. 08/06/19 25 Active carvediloL (COREG) 3.125 mg tablet Take by mouth 2 (two) times a day with meals. Active insulin glargine (LANTUS SoloStar) 100 unit/mL (3 mL) injection pen 10 untis at bedtime 09/07/19 25 Active insulin lispro (HumaLOG KwikPen) 100 unit/mL injection pen Use three times a day before meals: <100: 0 units, 151-200: 2 units, 201-250: 4 units, 251-300: 6 units, 301-350: 7 units, 351-400: 8 units, >400: call me and use 9 units 09/07/19 25 Active Accu-Chek Softclix Lancets CHECK BLOOD SUGAR TWICE DAILY 200 each 2 10/14/19 25 Active blood sugar diagnostic (Accu-Chek Kait Plus test strp) test strip CHECK BLOOD SUGAR TWICE DAILY 200 strip 2 10/14/19 25 Active blood sugar diagnostic (Accu-Chek Kait Plus test strp) test strip 08/08/19 25 Active Accu-Chek Softclix Lancets 08/08/19 25 Active simvastatin (ZOCOR) 20 mg tablet TAKE 1 TABLET BY MOUTH AT BEDTIME 100 tablet 10/25/19 25 Active lisinopriL (PRINIVIL,ZEST RIL) 10 mg tablet TAKE 1 TABLET BY MOUTH DAILY 100 tablet 10/25/19 25 Active metFORMIN (GLUCOPHAGE) 500 mg tablet Take 2 tablets (1,000 mg total) by mouth 2 (two) times a day with meals. 08/19/19 25 Active simvastatin (ZOCOR) 20 mg tablet Take 1 tablet (20 mg total) by mouth every night at bedtime 025 Discontinued lisinopriL (PRINIVIL,ZEST RIL) 10 mg tablet 08/19/19 25 025 Discontinued(Re order) Active Problems Patient Care Coordination No te Formatting of this note migh t be different from the original. Barriers: Renal Bx 07/22 w/ path pending, new HD, trend labs, H/H, heparin drip- LLE DVT, repeat Pt eval, lung mass biopsy 07/27 Plan: 1st choice - [facility] or [facility] d/t onsite HD. [facility] accepting w family to provide HD [...] general and how their size, shape, and currency exchange specialist time affect her level of suspicion [...] weeks. 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 Hypertension 06/01/2024 [...] complication, without long-term current use of insulin (CMS/HCC V24, CMS/HCC V28) 06/01/2024 Resolved Problems Problem Noted Date Diagnosed Date Resolved Date Acute encephalopathy 07/08/2024 025 Encounters Date Type Department Care Team Description 10/17/2024 1:20 PM EDT Telemedicine Endocrinology [address] [phone] Kathy Michelle PA Type 2 diabetes mellitus without complication, without long-term current use of insulin (CMS/HCC V24, CMS/HCC V28) (Primary Dx); CKD (chronic kidney disease) stage 4, GFR 15-29 ml/min (CMS/HCC V24, CMS/HCC V28) 09/12/2024 5:08 PM EDT - 09/13/2024 12:[address] [facility] Emergency [address] [place] [phone] Anthony Sparks MD Fall, initial encounter (Primary Dx); Acute cystitis without hematuria Discharge Disposition: Home or Self Care 09/06/2024 4:40 PM EDT Office Visit Endocrinology [address] [phone] Kathy Michelle PA Type 2 diabetes mellitus without complication, without long-term current use of insulin (CMS/HCC V24, CMS/HCC V28) (Primary Dx); CKD (chronic kidney disease) stage 4, GFR 15-29 ml/min (CMS/HCC V24, CMS/HCC V28); Primary hypertension 08/23/2024 3:00 PM EST Office Visit Gastroenterology - [address] [facility] 299 [facility] [address] [place] [phone] Josiane Smith, JUNITO Iron deficiency anemia, unspecified iron deficiency anemia type; History of cancer of unknown primary site 08/22/2024 8:30 AM EST - 08/22/2024 11:59 PM EST Hospital Encounter [facility] [address] [place] [phone] Chencho Wayne MD Crescentic glomerulonephritis (Primary Dx); Cresentic glomerulonephritis of transplanted kidney Discharge Disposition: Home or Self Care 08/22/[address] [phone] Haley Andrews LMSW 08/15/2024 1:30 PM EST Office Visit Thoracic Surgery - [place] 299 [facility] [address] [place] [phone] Cecily Montez MD Pulmonary nodule (Primary Dx); Lung mass 08/11/[address] [phone] Nalini Clark RN 08/10/2024 10:00 AM EST Office Visit [facility] Hematology Oncology [address] [place] [phone] Jaime Grimaldo MD Lung mass (Primary Dx); Normocytic anemia; Chronic renal failure, stage 5 (CMS/HCC V24, CMS/HCC V28) 08/09/2024 Telephone Nephrology - [address] [phone] Chencho Wayne MD provider call back 08/05/2024 11:46 AM EST Anesthesia Event [facility] OR [address] [place] [phone] Monroe Kim MD 08/05/2024 11:30 AM EST - 08/05/2024 1:[address] [facility] Main OR [address] [place] [phone] Cecily Montez MD Navigation bronchoscopy/EBUS [23159 (CPT??) +2 more] 07/08/2024 10:31 AM EST - 08/06/2024 1:09 PM EST Hospital Encounter [facility] Urology Unit [address] [place] [phone] Jj Wolfe MD Flores, Carlos M, MD Japaridze, Anna, MD Santoyo-Pachec o, Omar D, MD Kokosadze, Estate, MD Zipagan, James T, MD Seralathan, Manikandan, MD Anemia, unspecified type (Primary Dx); Hyponatremia; Acute on chronic renal insufficiency; Acute encephalopathy; Bilateral leg edema; Pulmonary nodule Discharge Disposition: Fdc Facility from Last 3 Months Surgical History [...] Description 11/11/2024 11:00 AM EDT Ancillary Procedure [facility] [address] [place] [address] [place] [address] 11/14/2024 11:[address] [facility] CT Scan [address] [place] [phone] 12/01/2024 10:00 AM EDT Office Visit Thoracic Surgery - [place] [address] [phone] Cecily Montez MD 299 [facility] [address] [place] [address] 12/08/2024 1:15 PM EDT Office Visit Internal Medicine - [facility] [address] [place] [phone] Eliosa Vázquez DO [address] [place] [address] Health Maintenance Due Date Last Done Comments [...] this topic Medical Devices Implanted Type Area Security Rep Device Identifier Shelf Expiration Date Model / Serial / Lot Cath Dial W/Vt Kt 14.7cf21an Palindrome Precision - [id number] - [id number] Implanted:Qty: 1 on 07/15/2024 by Fela Palomo MD at [facility] Dialysis Catheters Left: Chest Wall [facility] [id number] 09/26/2028 [id number] [id number] / [id number] / [id number] Sponge Surgifoam Gel 12 X 7mm - [id number] - [id number] Implanted:Qty: 1 on 05/23/2024 by Fela Palomo MD at [facility] Hemostasis Right: Lung [employer] [id number] 08/27/20271971 [id number] / Sponge Surgifoam Gel 12 X 7mm - [id number] - [id number] Implanted:Qty: 1 on 07/22/2024 by Fela Palomo MD at [facility] Hemostasis Left: Kidney J [employer] [id number] 05/24/20281971 [id number] / Procedures Procedure Name Priority Date/Time Associated [...] ENDOTRACHEAL(NO CHARGE) Routine 08/05/2024 12:08 PM EST GA BRONCHOSCOPY RIGID/FLEXIBLE W/EBUS >=3 MEDIASTINAL/HILAR LYMPH NODES 08/05/2024 11:46 AM EST Pulmonary nodule GA BRONCHOSCOPY INCL FLUROSCOPIC GUIDANCE W PLCMNT FIDUCIAL MARKER SGL/MULT 08/05/2024 11:46 AM EST Pulmonary nodule GA BRONCHOSCOPY RIGID/FLEXIBLE INCL FLUORO W/THERAPY ASPIRATION INITIAL [...] EST PHOSPHORUS Routine 08/03/2024 6:01 AM EST HEMOGLOBIN A1C Routine 05/31/2024 9:22 AM EST Cataract, diabetic (CMS/HCC V24, CMS/HCC V28) LIPID PANEL WITH REFLEX TO DIRECT LDL Routine 05/31/2024 9:22 AM EST Iron deficiency anemia, unspecified Cataract, diabetic (CMS/HCC V24, CMS/HCC V28) Hyperlipemia SALLY DEXA AXIAL SKELETON Routine 04/15/2018 10:29 AM EDT Encounter for screening for osteoporosis from Last 3 Months or Most Recently Relevant to Health Maintenance Results * ECG-Annotated (09/13/2024) Provider Onbase ECG ORDERABLES Final Result * ECG 12 lead (09/12/2024 9:12 PM EDT) Only the most recent of2 resultswithin the time period is included. Pathologist [facility] Ventricular Rate ECG 83 BPM GEMUSE Atrial Rate 83 BPM GEMUSE P-R Interval 178 ms GEMUSE QRS Duration 130 ms GEMUSE Q-T Interval 394 ms GEMUSE QTc 462 ms GEMUSE P Wave Amity 66 degrees GEMUSE R Amity 15 degrees GEMUSE T Amity 11 degrees GEMUSE ECG Interpretation Sinus rhythm with Premature atrial complexes Right bundle branch block Abnormal ECG When compared with ECG of 12-SEP-2024 21:12, No significant change was found Confirmed by MD Ramon, Paris ([id number]) on 09/14/2024 10:02:49 AM GEMUSE 09/12/2024 9:12 PM EDT 09/14/2024 10:02 AM EDT Jose HEDRICK ECG ORDERABLES Final Result GEMUSE * (ABNORMAL) Troponin I high sensitivity (NOW and then in 1 hour) (09/12/2024 8:27 PM EDT) Only the most recent of2 resultswithin the time period is included. Pathologist [facility] High Sensitivity Troponin I 110(H) <=54 ng/L LAB CHEMISTRY METHOD 09/12/2024 10:11 PM EDT [facility] Blood Venous blood specimen / Unknown Venipuncture / Unknown 09/12/2024 8:27 PM EDT 09/12/2024 9:33 PM EDT Narrative [facility] - 09/12/2024 10:11 PM EDT High levels of biotin in samples may falsely decrease hsTroponin values. ??Use caution when interpreting hsTroponin results in patients taking biotin who exhibit renal impairment (eGFR <60) or in patients taking more than 20 mg/day of biotin. us Madan Braga MD LAB BLOOD ORDERABLES Final Resu lt [email or web address] [address] [place] [address], * CT Cervical Spine wo Contrast (09/12/2024 [...] by: Dennise Main MD on 09/12/2024 20:55:04 us Madan Braga MD IMG CT PROCEDURES Final [...] MD on 09/12/2024 20:56:04 Madan Braga MD [facility] CT PROCEDURES Final Result * (ABNORMAL) Urinalysis with reflex microscopic and culture (09/12/2024 6:38 PM EDT) Specific [place]unction Urine 1.025 1.003 - 1.030 LAB URINALYSIS - AUTOMATED METHOD 09/12/2024 8:45 PM EDT [facility] pH, Urine 6.5 5.0 - 8.0 pH LAB URINALYSIS - AUTOMATED METHOD 09/12/2024 8:45 PM EDT [facility] Leukocytes, Urine Moderate(A) Negative [...] Urine Many(A) Negative /HPF 09/12/2024 8:45 PM [facility] Hyaline Casts, Urine 3 0 - 3 /LPF 09/12/2024 8:45 PM [facility] Other Casts, Urine 2-5 Coarse Granular casts. Rare Fine Granular casts. Rare Waxy casts. /LPF 09/12/2024 8:45 PM EDT [facility] Urine Urine specimen obtained by clean catch procedure / Unknown Non-blood Collection / Unknown 09/12/2024 6:38 PM EDT 09/12/2024 7:59 PM EDT Anthony Sparks MD LAB URINE ORDERABLES Final Result Performing Organization Address [facility]/ZIP Co de Phone Number [facility] [address] [place] [address], [place] [phone] * Robertson urine culture tube (09/12/2024 6:38 PM EDT) Extra Tube Hold for add-ons. 09/12/2024 9:01 PM EDT [facility] Comment:Auto resulted. Urine Urine specimen obtained by clean catch procedure / Unknown Non-blood Collection / Unknown 09/12/2024 6:38 PM EDT 09/12/2024 7:59 PM EDT Anthony Sparks MD LAB URINE ORDERABLES Final Result Performing Organization Address [facility] de Phone Number [facility] [address] [place] [address], [place] [phone] * (ABNORMAL) Culture urine (09/12/2024 6:38 PM EDT) Culture, Urine >100,000 CFU/mL Pseudomonas aeruginosa(A) KIRILL 09/16/2024 9:53 AM EDT [facility] Comment: This is an edited result. Previous organism was Gram negative bacilli on 09/15/2024 at 1216 EDT. Culture, Urine >100,000 CFU/mL Enterococcus faecalis(A) KIRILL 09/16/2024 9:53 AM EDT [facility] Comment: The organism value [...] LAB MICROBIOLOGY - GENERAL ORDERABLES Final Result [facility] [address] [place] [address], * (ABNORMAL) CBC auto differential (09/12/2024 6:22 PM EDT) Only the most recent of2 resultswithin the time period is included. WBC 6.9 4.8 - 10.8 K/mcL LAB HEMETOLOGY METHOD 09/12/2024 6:51 PM EDT [facility] RBC 2.80(L) 3.80 - 4.80 M/mcL LAB HEMETOLOGY METHOD 09/12/2024 6:51 PM EDT [facility] Hemoglobin 8.2(L) 11.5 - 16.0 g/dL LAB HEMETOLOGY METHOD 09/12/2024 6:51 PM EDT [facility] Hematocrit 25.2(L) 35.0 - 47.0 % LAB HEMETOLOGY METHOD 09/12/2024 6:51 PM EDT [facility] MCV 90.0 79.0 - 98.0 FL LAB HEMETOLOGY METHOD 09/12/2024 6:51 PM EDT [facility] MCH 29.3 27.0 - 32.0 pcg LAB HEMETOLOGY METHOD 09/12/2024 6:51 PM EDT [facility] MCHC 32.5 32.0 - 37.0 g/dL LAB HEMETOLOGY METHOD 09/12/2024 6:51 PM EDT [facility] RDW 20.2(H) 11.0 - 15.0 % LAB HEMETOLOGY METHOD 09/12/2024 6:51 PM EDT [facility] Platelets 179 130 - 400 K/mcL LAB HEMETOLOGY METHOD 09/12/2024 6:51 PM EDT [facility] MPV 10.4 7.0 - 11.0 FL LAB HEMETOLOGY METHOD 09/12/2024 6:51 PM EDT [facility] NRBC 0.0 <1.0 % LAB HEMETOLOGY METHOD 09/12/2024 6:51 PM EDT [facility] NRBC Absolute 0.00 <0.10 K/mcL LAB HEMETOLOGY METHOD 09/12/2024 6:51 PM EDT [facility] Neutrophils Relative 88.7 % LAB HEMETOLOGY METHOD 09/12/2024 6:51 PM EDT [facility] Lymphocytes Relative 6.7 % LAB HEMETOLOGY METHOD 09/12/2024 6:51 PM EDT [facility] Monocytes Relative 3.0 % LAB HEMETOLOGY METHOD 09/12/2024 6:51 PM EDT [facility] Eosinophils Relative 0.1 % LAB HEMETOLOGY METHOD 09/12/2024 6:51 PM EDT [facility] Basophils Relative 0.0 % LAB HEMETOLOGY METHOD 09/12/2024 6:51 PM EDT [facility] Immature Granulocytes Relative 1.5 % LAB HEMETOLOGY METHOD 09/12/2024 6:51 PM EDT [facility] Neutrophils Absolute 6.11 1.50 - 7.00 K/mcL LAB HEMETOLOGY METHOD 09/12/2024 6:51 PM EDT [facility] Lymphocytes Absolute 0.46(L) 1.00 - 5.00 K/mcL LAB HEMETOLOGY METHOD 09/12/2024 6:51 PM EDT [facility] Monocytes Absolute 0.21 0.20 - 1.00 K/mcL LAB HEMETOLOGY METHOD 09/12/2024 6:51 PM EDT [facility] Eosinophils Absolute 0.01 0.00 - 0.50 K/mcL LAB HEMETOLOGY METHOD 09/12/2024 6:51 PM EDT [facility] Basophils Absolute 0.00 0.00 - 0.20 K/mcL LAB HEMETOLOGY METHOD 09/12/2024 6:51 PM EDT [facility] Immature Granulocytes Absolute 0.10(H) 0.00 - 0.03 K/mcL LAB HEMETOLOGY METHOD 09/12/2024 6:51 PM EDT [facility] Blood Venous blood specimen / Unknown Venipuncture / Unknown 09/12/2024 6:22 PM EDT 09/12/2024 6:42 PM EDT us Madan Braga MD LAB BLOOD ORDERABLES Final Resu lt [facility] [address] [place] [address], * (ABNORMAL) Basic Metabolic Panel (BMP) (09/12/2024 6:22 PM EDT) Only the most recent of2 resultswithin the time period is included. Sodium 137 133 - 145 mmol/L LAB CHEMISTRY METHOD 09/12/2024 7:15 PM [facility] Potassium 4.1 3.5 - 5.5 mmol/L LAB CHEMISTRY METHOD 09/12/2024 7:15 PM [facility] Chloride 103 96 - 110 mmol/L LAB CHEMISTRY METHOD 09/12/2024 7:15 PM [facility] CO2 24 21 - 32 mmol/L LAB CHEMISTRY METHOD 09/12/2024 7:15 PM [facility] Anion Gap 10 3 - 11 LAB CHEMISTRY METHOD 09/12/2024 7:15 PM [facility] Glucose 204(H) 70 - 100 mg/dL LAB CHEMISTRY METHOD 09/12/2024 7:15 PM [facility] BUN 30(H) 5 - 25 mg/dL LAB CHEMISTRY METHOD 09/12/2024 7:15 PM [facility] Creatinine 2.36(H) 0.50 - 1.10 mg/dL LAB CHEMISTRY METHOD 09/12/2024 7:15 PM [facility] eGFR 20(L) >=60 mL/min/1. 73m2 LAB CHEMISTRY METHOD 09/12/2024 7:15 PM [facility] Comment:Calculation based on the??Chronic Kidney Disease Epidemiology Collaboration (CKD-EPI) equation refit??without adjustment for race. BUN/Creatinine Ratio 12.7 LAB CHEMISTRY METHOD 09/12/2024 7:15 PM [facility] Calcium 8.0(L) 8.5 - 10.5 mg/dL LAB CHEMISTRY METHOD 09/12/2024 7:15 PM [facility] Blood Venous blood specimen / Unknown Venipuncture / Unknown 09/12/2024 6:22 PM EDT 09/12/2024 6:42 PM EDT Madan Braga MD LAB BLOOD ORDERABLES Final Resu lt Performing Organization Address [facility]/ZIP Co de Phone Number [facility] [address] [place] [address], [place] [phone] * (ABNORMAL) POCT Glucose, blood (08/06/2024 11:07 AM EST) Only the most recent of12 resultswithin the time period is included. Glucose POCT 187(H) 70 - 100 mg/dL 08/06/2024 11:09 AM EST [facility] Blood Capillary blood specimen / Unknown 08/06/2024 11:07 AM EST 08/06/2024 11:10 AM EST Steve Cruz MD LAB POINT OF CA RE TEST DOCKED DEVICE UNSOLICITED RESULTS Final Result Performing Organization Address [facility] Co de Phone Number [facility] [address] [place] [address], [place] [phone] * XR Chest 1 View (08/05/2024 1:43 [...] Signed Date: 08/05/2024 13:49 ET Workstation ID: [id number] Transcribed By: Self Edit Transcribed Date: 08/05/2024 [...] Signed Date: 08/05/2024 13:49 ET Workstation ID: [id number] Transcribed By: Self Edit Transcribed Date: 08/05/2024 13:46 ET us Cecily Montez MD IMG XR PROCEDURES Final Result * Culture bronchial with gram stain (08/05/2024 12:32 PM EST) Bronchial Culture No growth at 3 days 08/08/2024 9:42 AM EST [facility] Gram Stain Result No polymorphonuclear leukocytes, No epithelial cells, and No organisms noted 08/08/2024 9:42 AM EST [facility] Wash Structure of upper lobe of right lung / Unknown 08/05/2024 12:32 PM EST 08/05/2024 1:17 PM EST us Cecily Montez MD LAB MICROBIOLOGY - GENERAL ORDER SYLVAIN Final Result [facility]) [facility] [address] [place] [address], [place] [phone] * Concentration (08/05/2024 12:32 PM EST) AFB Concentration Performed 025 5:05 PM EDT [facility] Wash Structure of upper lobe of right lung / Unknown 08/05/2024 12:32 PM EST 08/05/2024 1:17 PM EST Narrative [facility] - 09/19/2024 5:05 PM EDT Performed at: ??01 - [facility] [address] ??[id number] Bill Hiker: Diane Belle MD, Phone: ??[phone] Cecily Montez MD LAB BLOOD ORDERABLES Edited [...] PM EDT Performed at: ??01 - [facility] [address] ??[id number] Bill Hiker: Diane Belle MD, Phone: ??[phone] Cecily Montez MD LAB MICROBIOLOGY - GENERAL ORDER SYLVAIN Final Result [facility] * Acid fast bacilli stain (08/05/2024 12:32 PM EST) AFB Stain Result No Acid fast bacilli seen on direct smear (Fuchsin method, 1000x) No Acid Fast Bacilli seen on direct smear 08/05/2024 2:18 PM EST [facility] Wash Structure of upper lobe of right lung / Unknown 08/05/2024 12:32 PM EST 08/05/2024 1:17 PM EST us Cecily Montez MD LAB MICROBIOLOGY - GENERAL ORDER SYLVAIN Final Result Performing Organization Address [facility]/ZIP Co de Phone Number [facility] [address] [place] [address], [place] [phone] * Culture fungal, other (08/05/2024 12:32 PM EST) Culture, Fungus Negative for Fungus after 4 Weeks 09/05/2024 8:16 AM EDT [facility] Wash Structure of upper lobe of right lung / Unknown 08/05/2024 12:32 PM EST 08/05/2024 1:17 PM EST us Cecily Montez MD LAB MICROBIOLOGY - GENERAL ORDER SYLVAIN Final Result Performing Organization Address [facility] Co de Phone Number [facility] [address] [place] [address], [place] [phone] * Non-gynecologic cytology (08/05/2024 12:20 PM EST) [...] lymph node elements present. 08/09/2024 1:04 PM [facility] Specimen A Adequacy Satisfactory for evaluation 08/09/2024 1:04 PM [facility] Specimen B Adequacy Satisfactory for evaluation 08/09/2024 1:04 PM [facility] Specimen C Adequacy Satisfactory for evaluation 08/09/2024 1:04 PM [facility] Specimen D Adequacy Satisfactory for evaluation 08/09/2024 1:04 PM [facility] Specimen E Adequacy Specimen processed and examined, but unsatisfactory for eval of abnormal epithelial 08/09/2024 1:04 PM [facility] Specimen F Adequacy Satisfactory for evaluation 08/09/2024 1:04 PM [facility] Gross Description A. Lung, [...] time 54 hours. 08/09/2024 1:04 PM EST [facility] Disclaimer Unless otherwise specified, all tissue is 10% NB formalin fixed and paraffin embedded. Technical cytopathology services provided by [facility], at [address] [place] [address] (CLIA # [id number]/Gladys Prince MD, Senior Director Marketing.) 08/09/2024 1:04 PM EST [facility] Brushing, function (observable entity) [...] MD LAB CYTOLOGY ORDERABLES Final Re sult [facility] [[email or web address] [address] [place] [address], * TH AN ENDOTRACHEAL(NO CHARGE) (08/05/2024 12:08 PM EST) Narrative Candelaria Tatum CRNA - 08/05/2024 12:08 PM EST Candelaria Tatum CRNA ? 08/05/2024 12:10 PM General Information and Staff Patient location during procedure: [place] Anesthesiologist: Monroe Kim MD Resident/AFTERSCHOOL: Candelaria Tatum CRNA Performed: resident/AFTERSCHOOL/CAA Performed by: Candelaria Tatum CRNA Authorized by: [...] 7:03 AM EST) Only the most recent of2 resultswithin the time period is included. WBC 8.8 4.8 - 10.8 K/mcL LAB HEMETOLOGY METHOD 08/05/2024 7:42 AM [facility] RBC 2.90(L) 3.80 - 4.80 M/[facility] LAB HEMETOLOGY METHOD 08/05/2024 7:42 AM [facility] Hemoglobin 7.9(L) 11.5 - 16.0 g/dL LAB HEMETOLOGY METHOD 08/05/2024 7:42 AM [facility] Hematocrit 25.5(L) 35.0 - 47.0 % LAB HEMETOLOGY METHOD 08/05/2024 7:42 AM [facility] MCV 87.6 79.0 - 98.0 FL LAB HEMETOLOGY METHOD 08/05/2024 7:42 AM EST [facility] MCH 27.1 27.0 - 32.0 pcg LAB HEMETOLOGY METHOD 08/05/2024 7:42 AM [facility] MCHC 31.0(L) 32.0 - 37.0 g/dL LAB HEMETOLOGY METHOD 08/05/2024 7:42 AM [facility] RDW 21.9(H) 11.0 - 15.0 % LAB HEMETOLOGY METHOD 08/05/2024 7:42 AM [facility] Platelets 180 130 - 400 K/mcL LAB HEMETOLOGY METHOD 08/05/2024 7:42 AM [facility] MPV 10.8 7.0 - 11.0 FL LAB HEMETOLOGY METHOD 08/05/2024 7:42 AM EST [facility] NRBC 0.0 <1.0 % LAB HEMETOLOGY METHOD 08/05/2024 7:42 AM [facility] NRBC Absolute 0.00 <0.10 K/mcL LAB HEMETOLOGY METHOD 08/05/2024 7:42 AM [facility] Blood Venous blood specimen / Unknown Venipuncture / Unknown 08/05/2024 7:03 AM EST 08/05/2024 7:34 AM EST us Lencho Stuart MD LAB BLOOD ORDERABLES Final R esult [facility] [address] [place] [address], * (ABNORMAL) Creatinine, Serum - Every 7 [...] Re sult Performing Organization Address [facility] Co de Phone Number [facility] [address] [place] [address], * Hepatitis B surface antigen with reflex to confirmation (08/03/2024 8:49 AM EST) Hepatitis B Surface Ag Negative Negative LAB CHEMISTRY METHOD 08/03/2024 10:11 AM EST [facility] Blood Venous blood specimen / Unknown Venipuncture / Unknown 08/03/2024 8:49 AM EST 08/03/2024 9:22 AM EST Narrative [facility] - 08/03/2024 10:11 AM EST Over the counter supplements containing high doses of biotin may interfere with this assay. ??If interference is suspected, patients shoud be retested after refraining from biotin supplements for 72 hours. Steve Cruz MD LAB BLOOD ORDERABLES Fi nal Result Performing Organization Address [facility]/ZIP Co de Phone Number [facility] [address] [place] [address], * Hepatitis B surface antibody quantitative (08/03/2024 8:49 AM EST) Hepatitis B Surface Ab Negative Negative LAB CHEMISTRY METHOD 08/03/2024 9:59 AM EST [facility] Hepatitis B Surface Ab Quantitative <3.1 mIU/mL LAB CHEMISTRY METHOD 08/03/2024 9:59 AM EST [facility] Blood Venous blood specimen / Unknown Venipuncture / Unknown 08/03/2024 8:49 AM EST 08/03/2024 9:22 AM EST Narrative [facility] - 08/03/2024 9:59 AM EST >=10 mIU/mL is considered to be consistent with immunity. us Steve Cruz MD LAB BLOOD ORDERABLES Fi nal Result [facility] [address] [place] [address], [place] [phone] * Phosphorus (08/03/2024 6:01 AM EST) Phosphorus 4.3 2.5 - 4.5 mg/dL LAB CHEMISTRY METHOD 08/03/2024 8:11 AM EST [facility] Blood Venous blood specimen / Unknown Venipuncture / Unknown 08/03/2024 6:01 AM EST 08/03/2024 7:27 AM EST Steve Cruz MD LAB BLOOD ORDERABLES Fi nal Result [facility] [address] [place] [address], [place] [phone] * Magnesium (08/03/2024 6:01 AM EST) Magnesium 2.1 1.9 - 2.6 mg/dL LAB CHEMISTRY METHOD 08/03/2024 8:11 AM EST [facility] Blood Venous blood specimen / Unknown Venipuncture / Unknown 08/03/2024 6:01 AM EST 08/03/2024 7:27 AM EST us Steve Cruz MD LAB BLOOD ORDERABLES Fi nal Result [facility] [address] [place] [address], * Lipid panel with reflex to direct LDL (05/31/2024 9:22 AM EST) Cholesterol 131 0 - 200 mg/dL LAB CHEMISTRY METHOD 05/31/2024 12:51 PM EST [facility] Triglycerides 113 0 - 150 mg/dL LAB CHEMISTRY METHOD 05/31/2024 12:51 PM EST [facility] HDL 60 >=40 mg/dL LAB CHEMISTRY METHOD 05/31/2024 12:51 PM EST [facility] LDL Calculated 48 0 - 100 mg/dL LAB CHEMISTRY METHOD 05/31/2024 12:51 PM EST [facility] VLDL Cholesterol Hunter 22.6 mg/dL LAB CHEMISTRY METHOD 05/31/2024 12:51 PM EST [facility] Non HDL Chol. (LDL+VLDL) 71 <145 mg/dL LAB CHEMISTRY METHOD 05/31/2024 12:51 PM EST [facility] Chol/HDL Ratio 2.2 0.0 - 4.4 LAB CHEMISTRY METHOD 05/31/2024 12:51 PM EST [facility] Blood Venous blood specimen / Unknown Venipuncture / Unknown 05/31/2024 9:22 AM EST 05/31/2024 9:22 AM EST us Kayleigh Pedraza NP LAB BLOOD ORDERABLES Final Resul t Performing Organization Address [facility]/ZIP Co de Phone Number [facility] [address] [place] [address], [place] [phone] * SALLY DEXA AXIAL SKELETON (04/15/2018 10:29 AM EDT) Anatomical Region Laterality Modality Mammography 04/15/2018 9:39 AM EDT Narrative 04/15/2018 10:29 AM EDT [facility] Diagnostic Imaging Department [address] [place] [address] Patient: ??CONTRERAS,ANA A ?/Age/Sex: 1945 - 73 - F Unit#: ??[id number] ? Location/Status: ??SPDIMAM/REG CLI ? Mnemonic/Ordering Site: ??MAMDEXAAX/SPMAM Ordering Physician: ??VIVIEN SANTIZO MD [facility] Dexa Axial Skeleton - 04/15/18 [...] probability of hip fracture of 2.2%. Code 32817 Dictating Physician: ??JAILYN BARAHONA MD Electronically Signed by: ??JAILYN BARAHONA MD Dic Date/Time: ??04/15/18 1028 Sign date/Time: ??04/15/18 1029 Procedure Note Jailyn Barahona MD - 06/17/2022 [facility] Diagnostic Imaging Department [address] [place] [address] Patient: BENANA Chaparro /Age/Sex: 1945 - 73 - F Unit#: [id number] Location/Status: [facility] Ordering Physician: VIVIEN SANTIZO MD Sally [...] density of the femurs bilaterally is 0.854 gm/pj0gmhvc is 85% of that of young normals [...] probability of hip fracture of 2.2%. 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
--- OUTSIDE RECORDS SUMMARY | 2024-10-31 06:30 | XMS_ITS | Clinical Summary ---
Author Organization [facility] Address [address] [address] Phone Care Team Providers Care Mold Polisher Name Role Phone Eloisa Vázquez Primary Care Provider Encounters Date Type Department Care Team Description 10/10/2024 Treatment [facility] [address] [place] [phone] Anthony Norton MD 09/30/2024 Treatment [facility] [address] [address] Anthony Norton MD 09/23/2024 Treatment [facility] [address] [address] Anthony Norton MD 09/19/2024 Treatment [facility] [address] [address] Anthony Norton MD 09/12/2024 Treatment [facility] [address] [address] Anthony Norton MD 09/02/2024 Treatment [facility] [address] [address] Anthony Norton MD 08/26/2024 Treatment [facility] [address] [address] Anthony Norton MD 08/23/2024 Treatment [facility] [address] [address] Tony Golden MD 08/17/2024 Treatment [facility] [address] [address] Anthony Norton MD 08/11/2024 Orders Only [facility] [address] [address] Anthony Norton MD ANCA associated vasculitis (HCC); 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) 08/08/2024 Treatment [facility] [address] [address] Anthony Norton MD 08/08/2024 Office Communication [facility] [address] [address] Anthony Norton MD ANCA associated vasculitis (HCC) (Primary Dx); 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) from Last 3 Months Social History Tobacco [...] Foot Exam 08/08/2024 Diabetes: Hemoglobin A1C 12/30/2024 04/04/2 025, 08/08/2024, 05/31/2024 Influenza Vaccine (Season Ended) 2025 Procedures Procedure Name Priority Date/Time Associated Diagnosis Comments HEMOGLOBIN Routine 10/24/2024 3:00 AM EDT BASIC METABOLIC PANEL BUNDLED (HC) Routine 10/17/2024 [...] from Last 3 Months Results * (ABNORMAL) Hemoglobin (10/24/2024 3:00 AM EDT) Only the most recent of3 resultswithin the time period is included. Hgb 9.4(L) 11.2 - 15.7 g/dL [facility] Hemoglobin x 3 28.2(L) 33.6 - 47.1 g/dL [facility] 10/24/2024 3:00 AM EDT 10/25/2024 12:58 PM EDT Anthony Norton MD LAB BLOOD ORDERABLES Final Re sult Performing Organization Address [facility]/ZIP Co de Phone Number [facility] [address] [place] [address] * (ABNORMAL) Basic Metabolic Panel Bundled (10/17/2024 [...] PM EDT us Anthony Norton MD LAB [id number] SOLICITED RESULTS Final Result Performing Organization Address [facility]/ZIP Co de Phone Number [facility] [address] [place] [address] * LIH (10/17/2024 3:00 AM EDT) Only the most recent of14 resultswithin the time period is included. Lipemia Normal Normal [facility] Icterus Normal Normal [facility] Hemolysis Normal Normal [facility] 10/17/2024 3:00 AM EDT 10/18/2024 1:30 PM EDT Anthony Norton MD LAB [id number] SOLICITED RESULTS Final Result Performing Organization Address [facility] de Phone Number [facility] [address] [place] [address] * (ABNORMAL) Glucose, random (10/17/2024 3:00 AM EDT) Only the most recent of14 resultswithin the time period is included. Glucose 171(H) 74 - 109 mg/dL [facility] 10/17/2024 3:00 AM EDT 10/18/2024 1:30 PM EDT Anthony Norton MD LAB BLOOD ORDERABLES Final Re sult Performing Organization Address [facility] de Phone Number [facility] [address] [place] [address] * Collection Date (10/03/2024 3:00 AM EDT) Collection Date See Comment [facility] Comment: Patient sample received may exceed specimen stability, based on the collection date electronically provided. ??When reviewing patient results, verify collection information and consider specimen stability before acting on any critical or panic results. 10/03/2024 3:00 AM EDT Anthony Norton MD LAB [id number] SOLICITED RESULTS Final Result Performing Organization Address [facility] de Phone Number [facility] [address] [place] [address] * (ABNORMAL) Kt/V Natural Log, URR (09/30/2024 [...] 1:30 PM EDT Anthony Norton MD LAB [id number] SOLICITED RESULTS Final Result Performing Organization Address City/[facility]/ZIP Co de Phone Number [facility] [address] [place] [address] * (ABNORMAL) Calcium Phosphorus Product, Adjusted (09/30/2024 3:00 AM EDT) Only the most recent of3 resultswithin the time period is included. Pathologist [facility] Albumin 3.2(L) 3.6 - 5.4 g/dL [facility] Calcium 8.1(L) 8.6 - 10.3 mg/dL [facility] Phosphorus, Serum 5.0 2.5 - 5.0 mg/dL [facility] Ca*PO4 40.5 <55.0 mg2/dL2 [facility] Calcium, Adjusted Total 8.7 8.6 - 10.3 mg/dL [facility] CA*PO4 CORRCTD 43.5 <55.0 mg2/dL2 [facility] 09/30/2024 3:00 AM EDT 10/01/2024 1:31 PM EDT Anthony Norton MD LAB [id number] SOLICITED RESULTS Final Result Performing Organization Address City/[facility]/ZIP Co de Phone Number [facility] [address] [place] [address] * Hepatitis B Surface Ag w/Reflex Confirmation (09/30/2024 3:00 AM EDT) Only the most recent of3 resultswithin the time period is included. Pathologist [facility] Hep B Surface Antigen Negative Negative [facility] 09/30/2024 3:00 AM EDT 10/01/2024 1:31 PM EDT Anthony Norton MD LAB BLOOD ORDERABLES Final Re sult Performing Organization Address [facility] de Phone Number [facility] [address] [place] [address] * (ABNORMAL) TSAT (09/30/2024 3:00 AM EDT) Only the most recent of3 resultswithin the time period is included. Pathologist [facility] Iron 66 50 - 170 ug/dL [facility] Transferrin 127(L) 250 - 380 mg/dL [facility] TIBC 178(L) 211 - 406 ug/dL [facility] Iron Saturation (TSat) 37 22 - 52 % [facility] 09/30/2024 3:00 AM EDT 10/01/2024 1:31 PM EDT Anthony Norton MD LAB BLOOD ORDERABLES Final Re sult Performing Organization Address [facility] de Phone Number [facility] [address] [place] [address] * (ABNORMAL) CBC and Differential (09/30/2024 3:00 AM EDT) Only the most recent of3 resultswithin the time period is included. Pathologist [facility] DIFFERENTIAL MANUAL, 2 Not Indicated [facility] White [...] ORDERABLES Final Re sult Performing Organization Address [facility] Co de Phone Number [facility] [address] [place] [address] * ALT (09/30/2024 3:00 AM EDT) Only the most recent of3 resultswithin the time period is included. ALT (SGPT) 14 10 - 49 U/L [facility] 09/30/2024 3:00 AM EDT 10/01/2024 1:31 PM EDT Anthony Norton MD LAB BLOOD ORDERABLES Final Re sult Performing Organization Address [facility] de Phone Number [facility] [address] [place] [address] * AST (09/30/2024 3:00 AM EDT) Only the most recent of3 resultswithin the time period is included. AST (SGOT) 12 <34 U/L [facility] 09/30/2024 3:00 AM EDT 10/01/2024 1:31 PM EDT us Anthony Norton MD LAB BLOOD ORDERABLES Final Re sult Performing Organization Address [facility] Co de Phone Number [facility] [address] [place] [address] * (ABNORMAL) Protein, total (09/30/2024 3:00 AM EDT) Only the most recent of3 resultswithin the time period is included. Total Protein 5.0(L) 6.4 - 8.9 g/dL [facility] 09/30/2024 3:00 AM EDT 10/01/2024 1:31 PM EDT us Anthony Norton MD LAB BLOOD ORDERABLES Final Re sult Performing Organization Address [facility] de Phone Number [facility] [address] [place] [address] * Alkaline phosphatase (09/30/2024 3:00 AM EDT) Only the most recent of3 resultswithin the time period is included. Alkaline Phosphatase 102 46 - 116 U/L [facility] 09/30/2024 3:00 AM EDT 10/01/2024 1:31 PM EDT us Anthony Norton MD LAB BLOOD ORDERABLES Final Re sult Performing Organization Address [facility] de Phone Number [facility] [address] [place] [address] * PTH, Intact (09/30/2024 3:00 AM EDT) [...] ORDERABLES Final Re sult Performing Organization Address [facility] Co de Phone Number [facility] [address] [place] [address] * Magnesium (09/30/2024 3:00 AM EDT) Only the most recent of3 resultswithin the time period is included. Magnesium 2.0 1.9 - 2.7 mg/dL [facility] 09/30/2024 3:00 AM EDT 10/01/2024 1:31 PM EDT Anthony Norton MD LAB BLOOD ORDERABLES Final Re sult Performing Organization Address [facility] de Phone Number [facility] [address] [place] [address] * (ABNORMAL) Lactate dehydrogenase (09/30/2024 3:00 AM EDT) Only the most recent of3 resultswithin the time period is included. LDH 300(H) 120 - 246 U/L [facility] 09/30/2024 3:00 AM EDT 10/01/2024 1:31 PM EDT Anthony Norton MD LAB BLOOD ORDERABLES Final Re sult Performing Organization Address [facility] de Phone Number [facility] [address] [place] [address] * (ABNORMAL) Hemoglobin A1c (09/30/2024 3:00 AM [...] ORDERABLES Final Re sult Performing Organization Address [facility] de Phone Number [facility] [address] [place] [address] * (ABNORMAL) Ferritin (09/30/2024 3:00 AM EDT) Only the most recent of3 resultswithin the time period is included. Ferritin 2,081(H) 10 - 291 ng/mL [facility] 09/30/2024 3:00 AM EDT 10/01/2024 1:31 PM EDT Anthony Norton MD LAB BLOOD ORDERABLES Final Re sult Performing Organization Address [facility] de Phone Number [facility] [address] [place] [address] * (ABNORMAL) Creatinine, serum (09/30/2024 3:00 AM EDT) Only the most recent of2 resultswithin the time period is included. Creatinine 3.65(H) 0.55 - 1.02 mg/dL [facility] 09/30/2024 3:00 AM EDT 10/01/2024 1:31 PM EDT Anthony Norton MD LAB BLOOD ORDERABLES Final Re sult Performing Organization Address [facility] de Phone Number [facility] [address] [place] [address] * (ABNORMAL) Bilirubin, total (09/30/2024 3:00 AM EDT) Only the most recent of3 resultswithin the time period is included. Total Bilirubin 0.2(L) 0.3 - 1.2 mg/dL [facility] 09/30/2024 3:00 AM EDT 10/01/2024 1:31 PM EDT us Anthony Norton MD LAB BLOOD ORDERABLES Final Re sult [facility] [address] [place] [address] * (ABNORMAL) Lipid panel (09/30/2024 3:00 AM [...] ORDERABLES Final Re sult Performing Organization Address [facility] de Phone Number [facility] [address] [place] [address] * (ABNORMAL) Electrolyte panel (09/30/2024 3:00 AM [...] ORDERABLES Final Re sult Performing Organization Address [facility] de Phone Number [facility] [address] [place] [address] * (ABNORMAL) Creatinine clearance, urine, 24 hour [...] ORDERABLES Final Re sult Performing Organization Address [facility] de Phone Number [facility] [address] [place] [address] * (ABNORMAL) Hemoglobin and hematocrit (09/16/2024 3:00 AM EDT) Only the most recent of2 resultswithin the time period is included. Hgb 8.6(L) 11.2 - 15.7 g/dL [facility] Hematocrit 26.5(L) 34.1 - 44.9 % [facility] Hemoglobin x 3 25.8(L) 33.6 - 47.1 g/dL [facility] 09/16/2024 3:00 AM EDT 09/17/2024 1:04 PM EDT Anthony Norton MD LAB BLOOD ORDERABLES Final Re sult Performing Organization Address [facility] de Phone Number [facility] [address] [place] [address] * Phosphorus (09/16/2024 3:00 AM EDT) Phosphorus, Serum 3.8 2.5 - 5.0 mg/dL [facility] 09/16/2024 3:00 AM EDT 09/17/2024 1:09 PM EDT Anthony Norton MD LAB BLOOD ORDERABLES Final Re sult Performing Organization Address [facility] de Phone Number [facility] [address] [place] [address] * Confirmation Test HCV (08/08/2024 3:00 AM EST) Hep C Ab Confirmation Not needed [facility] 08/08/2024 3:00 AM EST 08/09/2024 1:15 PM EST Anthony Notron MD LAB BLOOD ORDERABLES Final Re sult Performing Organization Address [facility] de Phone Number [facility] [address] [place] [address] * HEPATITIS C ABS W/REFLEX RNA DETECTR (08/08/2024 3:00 AM EST) [facility] Hep C Virus Ab Non-Reacti ve Non-Reacti ve [facility] 08/08/2024 3:00 AM EST 08/09/2024 1:17 PM EST Anthony Norton MD LAB [id number] SOLICITED RESULTS Final Result Performing Organization Address [facility] de Phone Number [facility] [address] [place] [address] * Hepatitis B Core Antibody, Total (08/08/2024 3:00 AM EST) [facility] HBc Total Ab, S Negative Negative [facility] 08/08/2024 3:00 AM EST 08/09/2024 1:17 PM EST Anthony Norton MD LAB BLOOD ORDERABLES Final Re sult Performing Organization Address [facility] de Phone Number [facility] [address] [place] [address] * Aluminum level (08/08/2024 3:00 AM EST) [facility] Aluminum 4 1 - 20 ug/L [facility] 08/08/2024 3:00 AM EST 08/09/2024 1:21 PM EST Anthony Norton MD LAB BLOOD ORDERABLES Final Re sult Performing Organization Address [facility] de Phone Number [facility] [address] [place] [address] * Vitamin D 25 Hydroxy (08/08/2024 3:00 AM EST) [facility] Vitamin D, 25-Hydroxy 38 30 - 100 ng/mL [facility] Comment: Status ? Adult ?? Pediatric Deficient: ? <20 ? <15 Insufficient: ??20-29 ?? 15-19 Sufficient: ?30-100 ??20-100 08/08/2024 3:00 AM EST 08/09/2024 1:17 PM EST us Anthony Norton MD LAB BLOOD ORDERABLES Final Re sult Performing Organization Address [facility] de Phone Number [facility] [address] [place] [address] * (ABNORMAL) Hepatitis B Surface Antibody (08/08/2024 3:00 AM EST) Hep B Surface Antibody <4(A) mIU/mL [facility] Comment: Interpretation: <10: No Immunity >=10: Probable Immunity 08/08/2024 3:00 AM EST 08/09/2024 1:17 PM EST Anthony Norton MD LAB BLOOD ORDERABLES Final Re sult Performing Organization Address [facility] de Phone Number [facility] [address] [place] [address] * Uric Acid (08/08/2024 3:00 AM EST) Uric Acid 5.0 2.3 - 6.6 mg/dL [facility] 08/08/2024 3:00 AM EST 08/09/2024 1:17 PM EST Anthony Norton MD LAB BLOOD ORDERABLES Final Re sult Performing Organization Address [facility] de Phone Number [facility] [address] [place] [address] from Last 3 Months Insurance [facility] Medicare Care Teams Mold Polisher Relationship Specialty Start Date End Date Eloisa Vázquez [address] [place] [id number] PCP - General Internal Medicine 07/11/24
[2024-10-31 06:46] LABS: Anion Gap 16 (12-20); Blood Urea Nitrogen 71 mg/dL (9-16); Calcium 7.8 mg/dL (8.4-10.2); Carbon Dioxide 20 mmol/L (22-29); Chloride 101 mmol/L (96-108); Estimated Glomerular Filt Rate 14; Glucose Random 182 mg/dL (60-115); Potassium 4.5 mmol/L (3.3-5.1); Sodium 132 mmol/L (135-145)
[2024-10-31 07:04] LABS: Basophils Percent Auto 0.2 % (0-2); Eosinophils Percent Auto 0.1 % (0-4); Hemoglobin 9.3 g/dl (12.0-16.0); Imm Gran Abs Auto 0.27 X10*3/uL (0.00-0.03); Imm Gran Pct Auto 2.9 % (0.0-0.4); Lymphocytes Absolute Auto 0.6 X10*3/uL (1.2-4.9); Lymphocytes Percent Auto 6.9 % (20-40); Mean Corpuscular HGB Conc 33.2 g/dl (31.0-35.0); Mean Corpuscular Volume 99.3 fL (80.0-98.0); Mean Platelet Volume 10.7 fL (9.4-12.3); Monocytes Absolute Auto 0.8 X10*3/uL (0.1-1.2); Monocytes Percent Auto 8.3 % (2-11); Neutrophils Absolute Auto 7.6 x10*3/uL (2.0-8.3); Neutrophils Percent Auto 81.6 % (45-73); Platelet Count 175 X10*3/uL (160-400); Red Blood Count 2.82 X10*6/uL (4.20-5.50); Red Cell Distribution Width 16.5 % (11.0-16.0); White Blood Count 9.3 X10*3/uL (4.8-10.8)
== END 2024-10-31 06:29 | disposition home or self-care (01) ==
LOC: HO.MMNH1L 06:28
PROVIDERS: Visit Provider Family Medicine
DX: E11.9 Type 2 diabetes mellitus without complications (principal)
CPT/HCPCS: 36415; 80048; 85025

== ENCOUNTER 2024-11-07 06:14 | Outpatient (REF) | payer MEDICARE, SELFPAY ==
[2024-11-07 06:11] LABS: MANUAL DIFF FLAG NO
--- OUTSIDE RECORDS SUMMARY | 2024-11-07 06:21 | XMS_ITS | Clinical Summary ---
Author Organization [facility] Address [address] [place] [address] Care Team Providers Care Research Associate Molecular Biology Name Role Phone GurpreetEloisa Primary Care Provider [phone] Allergies No known active allergies Medications Medication [...] age to complete this topic Care Teams Research Associate Molecular Biology Relationship Specialty Start Date End Date Eloisa Vázquez DO [address] [place] [address] PCP - General Internal Medicine 04/07/24
--- OUTSIDE RECORDS SUMMARY | 2024-11-07 06:21 | XMS_ITS | Clinical Summary ---
Author Organization [facility] Address [address] [place] [address] Care Team Providers [employer] Name Role Phone Eloisa Vázuqez DO Primary Care Provider [phone] Allergies No known active allergies Medications cetirizine [...] Kana Fernández or Maribeth d/t onsite HD. [facility] accepting w family to provide HD [...] general and how their size, shape, and private branch exchange operator time affect her level of suspicion for [...] weeks. She will need to see her patient ambassador prior to procedure. Hypertension 06/01/2024 Hyperlipidemia 06/01/2024 History of cancer of unknown primary site 2023 CKD (chronic kidney disease) stage 4, GFR 15-29 ml/min ([facility] V24, [facility] V28) 06/01/2024 Iron deficiency anemia 06/01/2024 Assessment & Plan (08/23/2024 4:46 PM EST): Patient and her daughter decline GI workup for iron deficiency anemia. See H&P Impaired renal function 06/01/2024 Type 2 diabetes mellitus wit hout complication, without long-term current use of insulin ([facility] V24, [facility] V28) 06/01/2024 Resolved Problems Problem Noted Date Diagnosed Date Resolved Date Acute encephalopathy 07/08/2024 025 Encounters Date Type Department Care Team Description 11/01/2024 Telephone Thoracic Surgery - [address] [phone] Evy Cope MA 10/17/2024 1:20 PM EDT Telemedicine Endocrinology - [address] [phone] Kathy Michelle PA Type 2 diabetes mellitus without complication, without long-term current use of insulin ([facility] V24, [facility] V28) (Primary Dx); CKD (chronic kidney disease) stage 4, GFR 15-29 ml/min ([facility] V24, [facility] V28) 09/12/2024 5:08 PM EDT - 09/13/2024 12:10 AM EDT Emergency [facility] Emergency [address] [place] [phone] Anthony Sparks MD Fall, initial encounter (Primary Dx); Acute cystitis without hematuria Discharge Disposition: Home or Self Care 09/06/2024 4:40 PM EDT Office Visit [address] [phone] Kathy Michelle PA Type 2 diabetes mellitus without complication, without long-term current use of insulin ([facility]/HCC V24, [facility] V28) (Primary Dx); CKD (chronic kidney disease) stage 4, GFR 15-29 ml/min ([facility]/HCC V24, [facility]/HCC V28); Primary hypertension 08/23/2024 3:00 PM EST Office Visit Gastroenterology - [address] [place] [phone] Josiane Smith, JUNITO Iron deficiency anemia, unspecified iron deficiency anemia type; History of cancer of unknown primary site 08/22/2024 8:30 AM EST - 08/22/2024 11:59 PM EST Hospital Encounter [address] [phone] Chencho Wayne MD Crescentic glomerulonephritis (Primary Dx); Cresentic glomerulonephritis of transplanted kidney Discharge Disposition: Home or Self Care 08/22/[address] [phone] Haley Andrews LMSW 08/15/2024 1:30 PM EST Office Visit Thoracic Surgery - [address] [place] [phone] Cecily Montez MD Pulmonary nodule (Primary Dx); Lung mass 08/11/[address] [phone] Nalini Clark RN 08/10/2024 10:00 AM EST Office Visit [facility] Hematology Oncology [address] [place] [phone] Jaime Grimaldo MD Lung mass (Primary Dx); Normocytic anemia; Chronic renal failure, stage 5 (CMS/HCC V24, [facility]/HCC V28) from Last 3 Months Surgical History Surgery Date Site/Laterality Comments OTHER SURGICAL HISTORY 05/2012 PROCEDURE: ---- OTHER ----; COMMENT: lumbar microdiscectomy CATARACT EXTRACTION 2019 Bilateral PROCEDURE: HISTORICAL CATARACT REMOVAL Medical History Medical History Date Comments Diabetes mellitus, type 2 (C OR/HCC V24, [facility] V28) 02/14/2014 DX:Diabetes mellitus, type 2 (HCC) [...] COPD Brother 3 Alive COPD Brother 4 OH Daughter Alive Healthy Father (Age 54) [place] Mother (Age 93) Osteoporos is, HTN, Arthritis [...] Description 11/11/2024 11:00 AM EDT Ancillary Procedure [facility] [address] [facility] [address] [place] [address] 11/14/2024 11:30 AM EDT Appointment [facility] CT Scan [address] [place] [phone] 12/01/2024 10:00 AM EDT Office Visit Thoracic Surgery - [place] [address] [facility] [address] [place] [phone] Cecily Montez MD [address] [phone] 12/08/2024 1:15 PM EDT [facility] [address] [place] [address] Eloisa Vázquez DO [address] [place] [address] Health Maintenance Due Date Last Done Comments [...] this topic Medical Devices Implanted Type Area Field Service Representative Device Identifier Shelf Expiration Date Model / Serial / Lot Cath Dial W/Vt Kt 14.4uh59za Palindrome Precision - [id number] - [id number] Implanted:Qty: 1 on 07/15/2024 by Fela Palomo MD at [facility] Dialysis Catheters Left: Chest Wall [facility] [id number] 09/26/2028 [id number] [id number] / [id number] / [id number] Sponge Surgifoam Gel 12 X 7mm - [id number] - [id number] Implanted:Qty: 1 on 05/23/2024 by Fela Palomo MD at [facility] Hemostasis Right: Lung [employer] [id number] 08/27/20271971 / [id number] / Sponge Surgifoam Gel 12 X 7mm - [id number] - [id number] Implanted:Qty: 1 on 07/22/2024 by Fela Palomo MD at [facility] Hemostasis Left: Kidney [employer] [id number] 05/24/20281971 / [id number] / Procedures Procedure Name Priority Date/Time Associated [...] AND DIFFERENTIAL STAT 09/12/2024 6:22 PM EDT HEMOGLOBIN A1C Routine 05/31/2024 9:22 AM EST [...] GEMUSE QTc 462 ms GEMUSE P Wave [place] 66 degrees GEMUSE R [place] 15 degrees GEMUSE T [place] 11 degrees GEMUSE ECG Interpretation Sinus rhythm with Premature atrial complexes Right bundle branch block Abnormal ECG When compared with ECG of 12-SEP-2024 21:12, No significant change was found Confirmed by MD Ramon, Primo ([id number]) on 09/14/2024 10:02:49 AM GEMUSE 09/12/2024 9:12 PM EDT 09/14/2024 10:02 AM EDT us Jose HEDRICK ECG ORDERABLES Final Result Performing Organization Address [facility]/ZIP Co de Phone Number [place] * (ABNORMAL) Troponin I high sensitivity (NOW and then in 1 hour) (09/12/2024 8:27 PM EDT) Only the most recent of2 resultswithin the time period is included. High Sensitivity Troponin I 110(H) <=54 ng/L LAB CHEMISTRY METHOD 09/12/2024 10:11 PM EDT [facility] Blood Venous blood specimen / Unknown Venipuncture / Unknown 09/12/2024 8:27 PM EDT 09/12/2024 9:33 PM EDT Narrative [facility] - 09/12/2024 10:11 PM EDT High levels of biotin in samples may falsely decrease hsTroponin values. ??Use caution when interpreting hsTroponin results in patients taking biotin who exhibit renal impairment (eGFR <60) or in patients taking more than 20 mg/day of biotin. us Madan Braga MD LAB BLOOD ORDERABLES Final Resu lt Performing Organization Address [facility] de Phone Number [facility] [address] [place] [address], [place] [phone] * CT Cervical Spine wo Contrast (09/12/2024 [...] microscopic and culture (09/12/2024 6:38 PM EDT) Pathologist [facility] Specific [place] Urine 1.025 1.003 - 1.030 LAB URINALYSIS - AUTOMATED METHOD [facility]2024 [facility] pH, Urine 6.5 5.0 - 8.0 pH LAB URINALYSIS - AUTOMATED METHOD 09/12/2024 8:45 PM [facility] Leukocytes, Urine Moderate(A) Negative LAB URINALYSIS - AUTOMATED METHOD 09/12/2024 8:45 PM [facility] Nitrite, Urine Negative Negative LAB URINALYSIS - AUTOMATED METHOD 09/12/2024 8:45 PM [facility] Protein, Urine >=300(A) <=Trace mg/dL LAB URINALYSIS - AUTOMATED METHOD 09/12/2024 8:45 PM [facility] Glucose, Urine 100(A) Negative mg/dL LAB URINALYSIS - AUTOMATED METHOD 09/12/2024 8:45 PM [facility] Ketones, Urine Negative Negative mg/dL LAB URINALYSIS - AUTOMATED METHOD 09/12/2024 8:45 PM [facility] Urobilinogen , Urine 0.2 0.2 - 1.0 mg/dL LAB URINALYSIS - AUTOMATED METHOD 09/12/2024 8:45 PM [facility] Bilirubin, Urine Negative Negative LAB URINALYSIS - AUTOMATED METHOD 09/12/2024 8:45 PM [facility] Blood, Urine Large(A) Negative LAB URINALYSIS - AUTOMATED METHOD 09/12/2024 8:45 PM EDT [facility] RBC, Urine 10(H) 0 - 4 /HPF 09/12/2024 8:45 PM EDT [facility] WBC, Urine >100(H) 0 - 4 /HPF 09/12/2024 8:45 PM EDT [facility] Squamous Epithelial, Urine 50 0 - 60 /LPF 09/12/2024 8:45 PM EDT [facility] Non-Squamous Epithelial, Urine 2-5 Transitional epithelial cells. /LPF 09/12/2024 8:45 PM EDT [facility] Bacteria, Urine Many(A) Negative /HPF 09/12/2024 8:45 PM EDT [facility] Hyaline Casts, Urine 3 0 - 3 /LPF 09/12/2024 8:45 PM EDT [facility] Other Casts, Urine 2-5 Coarse Granular casts. Rare Fine Granular casts. Rare Waxy casts. /LPF 09/12/2024 8:45 PM EDT [facility] Urine Urine specimen obtained by clean catch procedure / Unknown Non-blood Collection / Unknown 09/12/2024 6:38 PM EDT 09/12/2024 7:59 PM EDT us Anthony Sparks MD LAB URINE ORDERABLES Final Result [facility] [address] [place] [address], * Robertson urine culture tube (09/12/2024 6:38 PM EDT) Extra Tube Hold for add-ons. 09/12/2024 9:01 PM EDT [facility] Comment:Auto resulted. Urine Urine specimen obtained by clean catch procedure / Unknown Non-blood Collection / Unknown 09/12/2024 6:38 PM EDT 09/12/2024 7:59 PM EDT us Anthony Sparks MD LAB URINE ORDERABLES Final Result [facility] [address] [place] [address], * (ABNORMAL) Culture urine (09/12/2024 6:38 PM EDT) [facility] Culture, Urine >100,000 CFU/mL Pseudomonas aeruginosa(A) KIRILL 09/16/2024 9:53 AM EDT [facility] Comment: This is an edited result. Previous organism was Gram negative bacilli on 09/15/2024 at 1216 EDT. Culture, Urine >100,000 CFU/mL Enterococcus faecalis(A) IKRILL 09/16/2024 9:53 AM EDT [facility] Comment: The organism value for [...] LAB MICROBIOLOGY - GENERAL ORDERABLES Final Result [facility] [address] [place] [address], [place] [phone] * (ABNORMAL) CBC auto differential (09/12/2024 6:22 PM EDT) Pathologist [facility] WBC 6.9 4.8 - 10.8 K/mcL LAB HEMETOLOGY METHOD 09/12/2024 6:51 PM EDT [facility] RBC 2.80(L) 3.80 - 4.80 M/mcL LAB HEMETOLOGY METHOD 09/12/2024 6:51 PM EDT [facility] Hemoglobin 8.2(L) 11.5 - 16.0 g/dL LAB HEMETOLOGY METHOD 09/12/2024 6:51 PM EDT [facility] Hematocrit 25.2(L) 35.0 - 47.0 % LAB HEMETOLOGY METHOD 09/12/2024 6:51 PM EDT [facility] MCV 90.0 79.0 - 98.0 FL LAB HEMETOLOGY METHOD 09/12/2024 6:51 PM EDT [facility] MCH 29.3 27.0 - 32.0 pcg LAB HEMETOLOGY METHOD 09/12/2024 6:51 PM EDT [facility] MCHC 32.5 32.0 - 37.0 g/dL LAB HEMETOLOGY METHOD 09/12/2024 6:51 PM EDT [facility] RDW 20.2(H) 11.0 - 15.0 % LAB HEMETOLOGY METHOD 09/12/2024 6:51 PM EDT [facility] Platelets 179 130 - 400 K/mcL LAB HEMETOLOGY METHOD 09/12/2024 6:51 PM EDT [facility] MPV 10.4 7.0 - 11.0 FL LAB HEMETOLOGY METHOD 09/12/2024 6:51 PM EDT [facility] NRBC 0.0 <1.0 % LAB HEMETOLOGY METHOD 09/12/2024 6:51 PM EDT [facility] NRBC Absolute 0.00 <0.10 K/mcL LAB HEMETOLOGY METHOD 09/12/2024 6:51 PM EDT [facility] Neutrophils Relative 88.7 % LAB HEMETOLOGY METHOD 09/12/2024 6:51 PM EDT [facility] Lymphocytes Relative 6.7 % LAB HEMETOLOGY METHOD 09/12/2024 6:51 PM EDT [facility] Monocytes Relative 3.0 % LAB HEMETOLOGY METHOD 09/12/2024 6:51 PM EDT [facility] Eosinophils Relative 0.1 % LAB HEMETOLOGY METHOD 09/12/2024 6:51 PM EDT [facility] Basophils Relative 0.0 % LAB HEMETOLOGY METHOD 09/12/2024 6:[facility] Immature Granulocytes Relative 1.5 % LAB HEMETOLOGY METHOD 09/12/2024 6:51 PM [facility] Neutrophils Absolute 6.11 1.50 - 7.00 K/mcL LAB HEMETOLOGY METHOD 09/12/2024 6:51 PM EDT [facility] Lymphocytes Absolute 0.46(L) 1.00 - 5.00 K/mcL LAB HEMETOLOGY METHOD 09/12/2024 6:51 PM EDT [facility] Monocytes Absolute 0.21 0.20 - 1.00 K/mcL LAB HEMETOLOGY METHOD 09/12/2024 6:51 PM EDT [facility] Eosinophils Absolute 0.01 0.00 - 0.50 K/mcL LAB HEMETOLOGY METHOD 09/12/2024 6:51 PM EDT [facility] Basophils Absolute 0.00 0.00 - 0.20 K/mcL LAB HEMETOLOGY METHOD 09/12/2024 6:51 PM EDT [facility] Immature Granulocytes Absolute 0.10(H) 0.00 - 0.03 K/mcL LAB HEMETOLOGY METHOD 09/12/2024 6:51 PM EDT [facility] Blood Venous blood specimen / Unknown Venipuncture / Unknown 09/12/2024 6:22 PM EDT 09/12/2024 6:42 PM EDT us Madan Braga MD LAB BLOOD ORDERABLES Final Resu lt [facility] [address] [place] [address], * (ABNORMAL) Basic Metabolic Panel (BMP) (09/12/2024 6:22 PM EDT) Sodium 137 133 - 145 mmol/L LAB CHEMISTRY METHOD 09/12/2024 7:15 PM [facility] Potassium 4.1 3.5 - 5.5 mmol/L LAB CHEMISTRY METHOD 09/12/2024 7:15 PM [facility] Chloride 103 96 - 110 mmol/L LAB CHEMISTRY METHOD 09/12/2024 7:15 PM [facility] CO2 24 21 - 32 mmol/L LAB CHEMISTRY METHOD 09/12/2024 7:15 PM [facility] Anion Gap 10 3 - 11 LAB CHEMISTRY METHOD 09/12/2024 7:15 PM [facility] Glucose 204(H) 70 - 100 mg/dL LAB CHEMISTRY METHOD 09/12/2024 7:15 PM [facility] BUN 30(H) 5 - 25 mg/dL LAB CHEMISTRY METHOD 09/12/2024 7:15 PM EDT [facility] Creatinine 2.36(H) 0.50 - 1.10 mg/dL LAB CHEMISTRY METHOD 09/12/2024 7:15 PM EDT [facility] eGFR 20(L) >=60 mL/min/1. 73m2 LAB CHEMISTRY METHOD 09/12/2024 7:15 PM EDT [facility] Comment:Calculation based on the??Chronic Kidney Disease Epidemiology Collaboration (CKD-EPI) equation refit??without adjustment for race. BUN/Creatinine Ratio 12.7 LAB CHEMISTRY METHOD 09/12/2024 7:15 PM EDT [facility] Calcium 8.0(L) 8.5 - 10.5 mg/dL LAB CHEMISTRY METHOD 09/12/2024 7:15 PM EDT [facility] Blood Venous blood specimen / Unknown Venipuncture / Unknown 09/12/2024 6:22 PM EDT 09/12/2024 6:42 PM EDT us Madan Braga MD LAB BLOOD ORDERABLES Final Resu lt [facility] [address] [place] [address], * Lipid panel with reflex to direct LDL (05/31/2024 9:22 AM EST) Cholesterol 131 0 - 200 mg/dL LAB CHEMISTRY METHOD 05/31/2024 12:51 PM EST [facility] Triglycerides 113 0 - 150 mg/dL LAB CHEMISTRY METHOD 05/31/2024 12:51 PM EST [facility] HDL 60 >=40 mg/dL LAB CHEMISTRY METHOD 05/31/2024 12:51 PM [facility] LDL Calculated 48 0 - 100 mg/dL LAB CHEMISTRY METHOD 05/31/2024 12:51 PM [facility] VLDL Cholesterol Hunter 22.6 mg/dL LAB CHEMISTRY METHOD 05/31/2024 12:51 PM EST [facility] Non HDL Chol. (LDL+VLDL) 71 <145 mg/dL LAB CHEMISTRY METHOD 05/31/2024 12:51 PM EST [facility] Chol/HDL Ratio 2.2 0.0 - 4.4 LAB CHEMISTRY METHOD 05/31/2024 12:51 PM EST [facility] Blood Venous blood specimen / Unknown Venipuncture / Unknown 05/31/2024 9:22 AM EST 05/31/2024 9:22 AM EST us Kayleigh Pedraza CUSTODIAL SERVICES MANAGER LAB BLOOD ORDERABLES Final Resul t [facility] [address] [place] [address], [place] [phone] * [facility] DEXA AXIAL SKELETON (04/15/2018 10:29 AM EDT) Anatomical Region Laterality Modality Mammography 04/15/2018 9:39 AM EDT Narrative 04/15/2018 10:29 AM EDT [facility] Diagnostic Imaging Department [address] [place] [address] Patient: ??CONTRERAS,ANA A ?/Age/Sex: 1945 - 73 - F Unit#: ??[id number] ? Location/Status: ??SPDIMAM/REG CLI ? Mnemonic/Ordering Site: [...] probability of hip fracture of 2.2%. Code 40090 Dictating Physician: ??JAILYN BARAHONA MD Electronically Signed by: ??JAILYN BARAHONA MD Dic Date/Time: ??04/15/18 1028 Sign date/Time: ??04/15/18 1029 Procedure Note Jailyn Barahona MD - 06/17/2022 [facility] Diagnostic Imaging Department [address] [place], [place] [id number] Patient: ANA CONTRERAS /Age/Sex: 1945 - 73 - F Unit#: [id number] Location/Status: SPDIMAM/REG CLI Mnemonic/Ordering Site: MAMDEXAAX/SPMAM Ordering Physician: VIVIEN SANTIZO MD [facility] Dexa Axial Skeleton - 04/15/18 - [...] density of the femurs bilaterally is 0.854 gm/gf4mfaon is 85% of that of young normals [...] probability of hip fracture of 2.2%. Code 26898 Dictating Physician: JAILYN BARAHONA MD Electronically Signed by: JAILYN BARAHONA MD Dic Date/Time: 04/15/18 1028 Sign date/Time: 04/15/18 1029 Vivien Santizo MD IMG BI PROCEDURES Final Result from Last 3 Months or Most Recently Relevant to Health Maintenance Insurance [place] [address] Advance Directives Documents on File Type Date Recorded Patient Interventionist Expl anation Advance Directives and Living Will [...] Second Alternate Health Care Agent Care Teams [employer] Relationship Specialty Start Date End Date Eloisa Vázquez DO [address] [place] [id number] PCP - General 04/12/24
--- OUTSIDE RECORDS SUMMARY | 2024-11-07 06:21 | XMS_ITS | Clinical Summary ---
Author Organization [facility] Address [address] [address] Phone Care Team Providers Care Change Director Name Role Phone Eloisa Vázquez Primary Care Provider [phone] Encounters Date Type Department Care Team Description 10/31/2024 Treatment [facility] [address] [place] [phone] Anthony Norton MD 10/10/2024 Treatment [facility] [address] [address] Anthony Norton MD 09/30/2024 Treatment [facility] [address] [address] Anthony Norton MD 09/23/2024 Treatment [facility] [address] [address] Anthony Norton MD 09/19/2024 Treatment [facility] [address] [address] Anthony Norton MD 09/12/2024 Treatment [facility] [address] [address] Anthony Norton MD 09/02/2024 Treatment [facility] [address] [address] Anthony Norton MD 08/26/2024 Treatment [facility] [address] [address] Anthony Norton MD 08/23/2024 Treatment [facility] [address] [address] Tony Golden MD 08/17/2024 Treatment [facility] [address] [address] Anthony Norton MD 08/11/2024 Orders Only [facility] [address] [address] Anthony Norton MD ANCA associated vasculitis (HCC); [...] HEPATITIS B SURFACE ANTIGEN W/REFL CONFIRM Routine 11/04/2024 3:00 AM EDT PROTEIN, TOTAL, SERUM Routine 11/04/2024 3:00 AM EDT TRANSFERRIN SATURATION Routine 3:00 AM EDT KT/V NATURAL LOG, URR (HC) Routine 11/04/2024 3:00 AM EDT LIH (HC) Routine 11/04/2024 3:00 AM EDT MAGNESIUM Routine 11/04/2024 3:00 AM EDT ELECTROLYTE PANEL Routine 11/04/2024 3:0 0 AM EDT GLUCOSE, RANDOM Routine 11/04/2024 3:00 AM EDT LACTATE DEHYDROGENASE Routine 11/04/2024 3:00 AM EDT BUN/CREATININE RATIO Routine 11/04/2024 3:00 AM EDT CREATININE, SERUM Routine 11/04/2024 3:0 0 AM EDT BILIRUBIN, TOTAL Routine 11/04/2024 3:00 AM EDT AST Routine 11/04/2024 3:00 AM EDT ALT Routine 11/04/2024 3:00 AM EDT ALKALINE PHOSPHATASE Routine 11/04/2024 3:00 AM EDT CALCIUM PHOSPHORUS PRODUCT, ADJUSTED (HC) Routine 11/04/2024 3:00 AM EDT FERRITIN Routine 11/04/2024 3:00 AM EDT CBC AND DIFFERENTIAL Routine 11/04/2024 3:00 AM EDT HEMOGLOBIN Routine 10/24/2024 3:00 AM EDT BASIC [...] RANDOM Routine 10/03/2024 3:00 AM EDT LIH () Routine 10/03/2024 3:00 AM EDT COLLECTION DATE [...] BUNDLED (HC) Routine 08/10/2024 3:00 AM EST from Last 3 Months Results * LIH (11/04/2024 3:00 AM EDT) Only the most recent of14 resultswithin the time period is included. Lipemia Normal Normal [facility] Icterus Normal Normal [facility] Hemolysis Normal Normal [facility] 11/04/2024 3:00 AM EDT 11/05/2024 1:50 PM EDT us Anthony Norton MD LAB [id number] SOLICITED RESULTS Final Result [facility] [address] [place] [address] * (ABNORMAL) Calcium Phosphorus Product, Adjusted (11/04/2024 3:00 AM EDT) Only the most recent of3 resultswithin the time period is included. Albumin 3.3(L) 3.6 - 5.4 g/dL [facility] Calcium 8.2(L) 8.6 - 10.3 mg/dL [facility] Phosphorus, Serum 4.5 2.5 - 5.0 mg/dL [facility] Ca*PO4 36.9 <55.0 mg2/dL2 [facility] Calcium, Adjusted Total 8.8 8.6 - 10.3 mg/dL [facility] CA*PO4 CORRCTD 39.6 <55.0 mg2/dL2 [facility] 11/04/2024 3:00 AM EDT 11/05/2024 1:50 PM EDT Anthony Norton MD LAB [id number] SOLICITED RESULTS Final Result Performing Organization Address [facility] Co de Phone Number [facility] [address] [place] [address] * Hepatitis B Surface Ag w/Reflex Confirmation (11/04/2024 3:00 AM EDT) Only the most recent of3 resultswithin the time period is included. Hep B Surface Antigen Negative Negative [facility] 11/04/2024 3:00 AM EDT 11/05/2024 1:50 PM EDT Anthony Norton MD LAB BLOOD ORDERABLES Final Re sult Performing Organization Address [facility] de Phone Number [facility] [address] [place] [address] * (ABNORMAL) BUN/CREATININE RATIO (11/04/2024 3:00 AM EDT) BUN/Creatinine Ratio 23.7(H) <=23.0 [facility] 11/04/2024 3:00 AM EDT 11/05/2024 1:50 PM EDT Anthony Norton MD LAB [id number] SOLICITED RESULTS Final Result Performing Organization Address [facility] de Phone Number [facility] [address] [place] [address] * (ABNORMAL) TSAT (11/04/2024 3:00 AM EDT) Only the most recent of3 resultswithin the time period is included. Iron 45(L) 50 - 170 ug/dL [facility] Transferrin 136(L) 250 - 380 mg/dL [facility] TIBC 190(L) 211 - 406 ug/dL [facility] Iron Saturation (TSat) 24 22 - 52 % [facility] 11/04/2024 3:00 AM EDT 11/05/2024 1:50 PM EDT us Anthony Norton MD LAB BLOOD ORDERABLES Final Re sult [facility] [address] [place] [address] * (ABNORMAL) CBC and Differential (11/04/2024 3:00 AM EDT) Only the most recent of3 resultswithin the time period is included. DIFFERENTIAL MANUAL, 2 Not Indicated [facility] White Blood Cells 6.2 4.0 - 10.0 K/uL [facility] RBC 3.02(L) 3.93 - 5.22 M/uL [facility] Hgb 10.0(L) 11.2 - 15.7 g/dL [facility] Hemoglobin x 3 30.0(L) 33.6 - 47.1 g/dL [facility] Hematocrit 29.8(L) 34.1 - 44.9 % [facility] MCV 98.7(H) 79.4 - 94.8 fL [facility] MCH 33.1(H) 25.6 - 32.2 pg [facility] MCHC 33.6 32.2 - 35.5 g/dL [facility] RDW 15.7(H) 11.7 - 14.4 % [facility] Platelets 161(L) 182 - 369 K/uL [facility] Neutrophils Relative 80.8(H) 34.0 - 71.1 % [facility] Lymphocytes Relative 7.6(L) 19.3 - 51.7 % [facility] Monocytes 10.0 4.7 - 12.5 % [facility] Eosinophils Relative 0.2(L) 0.7 - 5.8 % [facility] Basophils Relative 0.3 0.1 - 1.2 % [facility] Immature Granulocytes 1.1(H) 0.0 - 1.0 % [facility] 11/04/2024 3:00 AM EDT 11/05/2024 1:44 PM EDT Anthony Norton MD LAB BLOOD ORDERABLES Final Re sult Performing Organization Address [facility] de Phone Number [facility] [address] [place] [address] * ALT (11/04/2024 3:00 AM EDT) Only the most recent of3 resultswithin the time period is included. ALT (SGPT) 20 10 - 49 U/L [facility] 11/04/2024 3:00 AM EDT 11/05/2024 1:50 PM EDT Anthony Notron MD LAB BLOOD ORDERABLES Final Re sult Performing Organization Address [facility] de Phone Number [facility] [address] [place] [address] * AST (11/04/2024 3:00 AM EDT) Only the most recent of3 resultswithin the time period is included. AST (SGOT) 13 <34 U/L [facility] 11/04/2024 3:00 AM EDT 11/05/2024 1:50 PM EDT us Anthony Norton MD LAB BLOOD ORDERABLES Final Re sult Performing Organization Address [facility] de Phone Number [facility] [address] [place] [address] * (ABNORMAL) Protein, total (11/04/2024 3:00 AM EDT) Only the most recent of3 resultswithin the time period is included. Total Protein 5.0(L) 6.4 - 8.9 g/dL [facility] 11/04/2024 3:00 AM EDT 11/05/2024 1:50 PM EDT us Anthony Norton MD LAB BLOOD ORDERABLES Final Re sult Performing Organization Address [facility] Co de Phone Number [facility] [address] [place] [address] * Alkaline phosphatase (11/04/2024 3:00 AM EDT) Only the most recent of3 resultswithin the time period is included. Alkaline Phosphatase 73 46 - 116 U/L [facility] 11/04/2024 3:00 AM EDT 11/05/2024 1:50 PM EDT Anthony Norton MD LAB BLOOD ORDERABLES Final Re sult Performing Organization Address [facility] Co de Phone Number [facility] [address] [place] [address] * Magnesium (11/04/2024 3:00 AM EDT) Only the most recent of3 resultswithin the time period is included. Magnesium 2.3 1.9 - 2.7 mg/dL [facility] 11/04/2024 3:0 0 AM EDT 11/05/2024 1:50 PM EDT us Anthony Norton MD LAB BLOOD ORDERABLES Final Re sult Performing Organization Address [facility] Co de Phone Number [facility] [address] [place] [address] * (ABNORMAL) Lactate dehydrogenase (11/04/2024 3:00 AM EDT) Only the most recent of3 resultswithin the time period is included. LDH 310(H) 120 - 246 U/L [facility] 11/04/2024 3:00 AM EDT 11/05/2024 1:50 PM EDT us Anthony Norton MD LAB BLOOD ORDERABLES Final Re sult Performing Organization Address [facility] Co de Phone Number [facility] [address] [place] [address] * (ABNORMAL) Glucose, random (11/04/2024 3:00 AM EDT) Only the most recent of14 resultswithin the time period is included. Glucose 136(H) 70 - 99 mg/dL [facility] Comment: ADA guidelines outline the following fasting glucose ranges: Normal: ? <100 Prediabetes: 100-125 Diabetes: ? >125 11/04/2024 3:00 AM EDT 11/05/2024 1:50 PM EDT Anthony Norton MD LAB BLOOD ORDERABLES Final Re sult Performing Organization Address [facility] Co de Phone Number [facility] [address] [place] [address] * (ABNORMAL) Ferritin (11/04/2024 3:00 AM EDT) Only the most recent of3 resultswithin the time period is included. Ferritin 1,255(H) 10 - 291 ng/mL [facility] 11/04/2024 3:00 AM EDT 11/05/2024 1:50 PM EDT Anthony Norton MD LAB BLOOD ORDERABLES Final Re sult Performing Organization Address [facility] de Phone Number [facility] [address] [place] [address] * (ABNORMAL) Creatinine, serum (11/04/2024 3:00 AM EDT) Only the most recent of2 resultswithin the time period is included. Creatinine 3.16(H) 0.55 - 1.02 mg/dL [facility] 11/04/2024 3:00 AM EDT 11/05/2024 1:50 PM EDT Anthony Norton MD LAB BLOOD ORDERABLES Final Re sult Performing Organization Address [facility] Co de Phone Number [facility] [address] [place] [address] * (ABNORMAL) Bilirubin, total (11/04/2024 3:00 AM EDT) Only the most recent of3 resultswithin the time period is included. Total Bilirubin 0.2(L) 0.3 - 1.2 mg/dL [facility] 11/04/2024 3:00 AM EDT 11/05/2024 1:50 PM EDT Anthony Norton MD LAB BLOOD ORDERABLES Final Re sult Performing Organization Address [facility] de Phone Number [facility] [address] [place] [address] * (ABNORMAL) Electrolyte panel (11/04/2024 3:00 AM EDT) Only the most recent of3 resultswithin the time period is included. Sodium 134(L) 136 - 145 mEq/L [facility] Potassium 4.2 3.4 - 5.0 mEq/L [facility] Chloride 100 98 - 107 mEq/L [facility] Bicarbonate (CO2) 22 21 - 31 mEq/L [facility] Anion Gap 12 3 - 14 mEq/L [facility] 11/04/2024 3:00 AM EDT 11/05/2024 1:50 PM EDT Anthony Norton MD LAB BLOOD ORDERABLES Final Re sult Performing Organization Address [facility] de Phone Number [facility] [address] [place] [address] * (ABNORMAL) Hemoglobin (10/24/2024 3:00 AM EDT) Only the most recent of3 resultswithin the time period is included. Hgb 9.4(L) 11.2 - 15.7 g/dL [facility] Hemoglobin x 3 28.2(L) 33.6 - 47.1 g/dL [facility] 10/24/2024 3:00 AM EDT 10/25/2024 12:58 PM EDT Anthony Norton MD LAB BLOOD ORDERABLES Final Re sult Performing Organization Address [facility] Co de Phone Number [facility] [address] [place] [address] * (ABNORMAL) Basic Metabolic Panel Bundled (10/17/2024 [...] 1:30 PM EDT Anthony Norton MD LAB [id number] SOLICITED RESULTS Final Result Performing Organization Address City/[facility]/ZIP Co de Phone Number [facility] [address] [place] [address] * Collection Date (10/03/2024 3:00 AM EDT) Collection Date See Comment [facility] Comment: Patient sample received may exceed specimen stability, based on the collection date electronically provided. ??When reviewing patient results, verify collection information and consider specimen stability before acting on any critical or panic results. 10/03/2024 3:00 AM EDT Anthony Norton MD LAB [id number] SOLICITED RESULTS Final Result Performing Organization Address City/[facility]/ZIP Co de Phone Number [address] [address] * (ABNORMAL) Kt/V Natural Log, URR (09/30/2024 3:00 AM EDT) Only the most recent of2 resultswithin the time period is included. Pathologist [facility] Treatment Time 185 min [facility] Pre-Weight, lb [...] 1:30 PM EDT Anthony Norton MD LAB [id number] SOLICITED RESULTS Final Result Performing Organization Address [facility] de Phone Number [facility] [address] [place] [address] * PTH, Intact (09/30/2024 3:00 AM EDT) PTH, Intact 273 160 - 721 pg/mL [facility] Comment: Suggested (KDIGO) ESRD maintenance range is two to nine times the upper normal limit (80.1 pg/mL) for the laboratory. 09/30/2024 3:00 AM EDT 10/01/2024 1:31 PM EDT Anthony Norton MD LAB BLOOD ORDERABLES Final Re sult Performing Organization Address [facility] de Phone Number [facility] [address] [place] [address] * (ABNORMAL) Hemoglobin A1c (09/30/2024 3:00 AM EDT) Hemoglobin A1C 7.3(H) <5.7 % [facility] Comment: Methodology: Enzymatic HbA1c (NGSP %) ?Suggested Diagnosis >6.4% ? Diabetic 5.7-6.4% ?Pre-Diabetic <5.7% ? Non-Diabetic Diabetic Glucose Control Evaluation: Therapeutic action suggested at >8.0% ADA recommends a glycemic goal of <7.0% 09/30/2024 3:00 AM EDT 10/01/2024 1:40 PM EDT us Anthony Norton MD LAB BLOOD ORDERABLES Final Re sult [facility] [address] [place] [address] * (ABNORMAL) Lipid panel (09/30/2024 3:00 AM EDT) Cholesterol 254(H) <200 mg/dL [facility] Comment: Optimal: [...] sult Performing Organization Address [facility] Co de Phone Number [facility] [address] [place] [address] * (ABNORMAL) Creatinine clearance, urine, 24 hour [...] sult Performing Organization Address [facility] de Phone Number [facility] [address] [place] [address] * (ABNORMAL) Hemoglobin and hematocrit (09/16/2024 3:00 AM EDT) Only the most recent of2 resultswithin the time period is included. Hgb 8.6(L) 11.2 - 15.7 g/dL [facility] Hematocrit 26.5(L) 34.1 - 44.9 % [facility] Hemoglobin x 3 25.8(L) 33.6 - 47.1 g/dL [facility] 09/16/2024 3:00 AM EDT 09/17/2024 1:04 PM EDT Anthony Norton MD LAB BLOOD ORDERABLES Final Re sult Performing Organization Address City/[facility]/ZIP Co de Phone Number [facility] [address] [place] [address] * Phosphorus (09/16/2024 3:00 AM EDT) Phosphorus, Serum 3.8 2.5 - 5.0 mg/dL [facility] 09/16/2024 3:00 AM EDT 09/17/2024 1:09 PM EDT Anthony Norton MD LAB BLOOD ORDERABLES Final Re sult Performing Organization Address [facility] Co de Phone Number [facility] [address] [place] [address] from Last 3 Months Insurance [address] [place] [id number] [facility] Medicare Care Teams Change Director Relationship Specialty Start Date End Date Marie Vázquezmana [address] [place], [place] [phone] PCP - General Internal Medicine 07/11/24
--- OUTSIDE RECORDS SUMMARY | 2024-11-07 06:21 | XMS_ITS | Encounter Summary ---
Author Organization [facility] Address [address] [place] [address] Care Team Providers Care Plant Breeder Name Role Phone Eloisa Vázquez DO Primary Care Provider [phone] Encounter Details Date Type Department Care Team (Late st Contact Info) Description 11/01/2024 Telephone Thoracic Surgery - [address] [place] [address] Evy Cope [place] Social History Tobacco Use Types Packs/Day Years [...] hearing? Answer Date of Assessment Author No 09/12/2024 11:24 PM EDT Latrell Cooney RN * Are you blind or do you have serious difficulty seeing, even when wearing glasses? Answer Date of Assessment Author No 09/12/2024 11:24 PM Latrell Richard RN * Do you have serious difficulty walking or climbing stairs? Answer Date of Assessment Author No 09/12/2024 11:24 PM EDT Latrell Cooney RN * Do you have serious difficulty dressing or bathing? Answer Date of Assessment Author No 09/12/2024 11:24 PM EDT Latrell Cooney RN * Because of a physical, mental, or emotional condition, do you have serious difficulty doing errandsalone such as visiting the doctor? Answer Date of Assessment Author No 09/12/2024 11:24 PM Latrell Richard RN documented as of this encounter Mental Status * Because of a physical, mental, or emotional condition, do you have serious difficulty concentrating, remembering, or making decisions? (5 years old or older) Answer Entry Date Author No 09/12/2024 11:24 PM Latrell Richard RN documented in this encounter Plan of Treatment Upcoming Encounters Date Type Department Care Team (Late st Contact Info) Description 11/11/2024 11:00 AM EDT Ancillary Procedure [facility] [address] [facility] 101 [place] [address] 11/14/2024 11:30 AM EDT Appointment [facility] CT Scan [address] [place] [address] 12/01/2024 10:00 AM EDT Office Visit Thoracic Surgery - [place] [facility] [address] [phone] Cecily Montez MD [address] [address] 12/08/2024 1:15 PM EDT [facility] [address] [place] [address] Eloisa Vázquez DO [address] [facility] [place] [address] documented as of this encounter Visit Diagnoses Not on filedocumented in this encounter Care Teams Plant Breeder Relationship Specialty Start Date End Date Eloisa Vázquez DO [address] [facility] [place] [address] PCP - General 04/12/24 documented as of this encounter
--- OUTSIDE RECORDS SUMMARY | 2024-11-07 06:21 | XMS_ITS | Encounter Summary ---
Author Organization [facility] Address [address] [place] [address] Care Team Providers Care House Visitor Name Role Phone Marie Vázquezmankamryn CHERY Primary Care Provider [phone] Encounter Details Date Type Department Care Team (Late st Contact Info) Description 04/12/2024 1:41 PM EDT Hospital Encounter TH HISTORIC ENCOUNTERS EASTERN CONVERSION ONLY Jaime Grimaldo MD [address] [place] [phone] Social History Tobacco Use Types Packs/Day Years [...] summerof this year while she was in [place] developed some respiratory infection/COVID, patient also have [...] issues, was seen by a physician in [place] (in urgent care clinic), CT scan of [...] Description 11/11/2024 11:00 AM EDT Ancillary Procedure [facility] - [facility] 101 300 [facility] 101 [place] [address] 11/14/2024 11:30 AM EDT Appointment [facility] CT Scan [address] [place] [phone] 12/01/2024 10:00 AM EDT Office Visit Thoracic Surgery - [place] [address] [phone] Cecily Montez MD 299 [facility] [address] [place] [address] 12/08/2024 1:15 PM EDT Office Visit Internal Medicine - [place] [address] [facility] [place] [phone] Marie VázquezmanaDO [address] [facility] [place] [address] documented as of this encounter Procedures Procedure [...] documented as of this encounter Care Teams House Visitor Relationship Specialty Start Date End Date Marie VázquezmanDO kamryn [address] [facility] [place] [address] PCP - General 04/12/24 documented as of this encounter
[2024-11-07 07:02] LABS: Basophils Percent Auto 0.6 % (0-2); Hematocrit 32.2 % (37.0-47.0); Hemoglobin 10.5 g/dl (12.0-16.0); Imm Gran Abs Auto 0.15 X10*3/uL (0.00-0.03); Imm Gran Pct Auto 2.4 % (0.0-0.4); Lymphocytes Absolute Auto 0.6 X10*3/uL (1.2-4.9); Lymphocytes Percent Auto 9.1 % (20-40); Mean Corpuscular HGB Conc 32.6 g/dl (31.0-35.0); Mean Corpuscular Hemoglobin 32.3 pg (27.0-33.0); Mean Corpuscular Volume 99.1 fL (80.0-98.0); Mean Platelet Volume 10.7 fL (9.4-12.3); Monocytes Absolute Auto 0.7 X10*3/uL (0.1-1.2); Monocytes Percent Auto 10.5 % (2-11); Neutrophils Absolute Auto 4.9 x10*3/uL (2.0-8.3); Neutrophils Percent Auto 77.4 % (45-73); Platelet Count 187 X10*3/uL (160-400); Red Blood Count 3.25 X10*6/uL (4.20-5.50); Red Cell Distribution Width 15.3 % (11.0-16.0); White Blood Count 6.3 X10*3/uL (4.8-10.8)
[2024-11-07 07:13] LABS: Anion Gap 19 (12-20); Blood Urea Nitrogen 83 mg/dL (9-16); Calcium 7.7 mg/dL (8.4-10.2); Carbon Dioxide 15 mmol/L (22-29); Chloride 103 mmol/L (96-108); Estimated Glomerular Filt Rate 14; Glucose Random 323 mg/dL (60-115); Potassium 4.2 mmol/L (3.3-5.1); Sodium 133 mmol/L (135-145)
== END 2024-11-07 06:15 | disposition home or self-care (01) ==
LOC: HO.MMNH1L 06:14
PROVIDERS: Visit Provider Family Medicine
DX: E11.9 Type 2 diabetes mellitus without complications (principal)
CPT/HCPCS: 36415; 80048; 85025

== ENCOUNTER 2024-11-11 22:40 | Outpatient (REF) | payer MEDICARE, SELFPAY ==
[2024-11-11 23:50] LABS: CDiff Gene PCR POSITIVE (Negative)
[2024-11-12 00:28] LABS: CDiff Toxin Positive (Negative)
[2024-11-12 00:29] LABS: CDIFF Internal ctrl Dots and bkg OK (V)
== END 2024-11-11 22:41 | disposition home or self-care (01) ==
LOC: HO.MMNH1L 22:40
PROVIDERS: Visit Provider Nurse Practitioner Family
DX: R19.7 Diarrhea, unspecified (principal); E46 Unspecified protein-calorie malnutrition; N18.4 Chronic kidney disease, stage 4 (severe)
CPT/HCPCS: 87324; 87493

== ENCOUNTER 2024-11-14 05:39 | Outpatient (REF) | payer MEDICARE, SELFPAY ==
--- OUTSIDE RECORDS SUMMARY | 2024-11-14 05:45 | XMS_ITS | Encounter Summary ---
Author Organization [facility] Address [address] [place] [address] Care Team Providers Care Ophthalmic Photographer Name Role Phone Eloisa Vázquez DO Primary Care Provider [phone] Reason for Visit * Imaging (Routine) - Authorized Specialty Diagnoses / Procedures Referred By Contac t Referred To Contact Cardiology Diagnoses Primary hypertension PANIAGUA (dyspnea on exertion) Leg edema Procedures Transthoracic echocardiogram (TTE) complete with PRN contrast, bubble, strain, and 3D order panel PA TTE W 2D IMAGE COMPLETE W DOPPLER ECHO & COLOR FLOW DOPPLER ECHO PA AMINAH 2D COMPLETE W/CONTRAST OR W & WO CONTRAST WITH DOPPLER Primo Navarro MD [address] [place] [address] Phone: tel: fax: [facility] Referral ID Status Reason Start Date Expiration Date V isits Requested Visits Authorized [id number] Authorized 06/17/2024 06/17/2025 1 1 Encounter Details Date Type Department Care Team (Latest Contact Info) Description 11/11/2024 11:00 AM EDT Ancillary Procedure [facility] - [address] [place] [address] [place] [address] Primary hypertension; PANIAGUA (dyspnea on exertion); Leg edema Social History Tobacco Use Types Packs/Day Years [...] Sign Reading Time Taken Comments Blood Pressure - - Pulse - - Temperature - - Respiratory Rate - - Oxygen Saturation - - Inhaled Oxygen Concentration - - Weight 68 kg (150 lb) 11/11/2024 12:05 PM EDT Height 162.6 cm (5' 4 ) 11/11/2024 12:05 PM EDT Body Mass Index 25.75 11/11/2024 12:05 PM EDT documented in this encounter Functional Status * [...] 09/12/2024 11:24 PM EDT Latrell Cooney RN documented as of this encounter Mental Status * Because of a physical, mental, or emotional condition, do you have serious difficulty concentrating, remembering, or making decisions? (5 years old or older) Answer Entry Date Author No 09/12/2024 11:24 PM EDT Latrell Cooney RN documented in this encounter Plan of Treatment Upcoming Encounters Date Type Department Care Team (Late st Contact Info) Description 11/14/2024 11:30 AM EDT Appointment [facility] CT Scan [address] [place] [address] 12/01/2024 10:00 AM EDT Office Visit Thoracic Surgery - [place] [address] [phone] Cecily Montez MD [address] [address] 12/08/2024 1:15 PM EDT [facility] [address] [place] [address] Eloisa Vázquez DO [address] [place] [address] Pending Results Name Type Priority Associated Diagnoses Date/Time Transthoracic echocardiogram (TTE) complete with PRN contrast, bubble, strain, and 3D order panel Echocardiography Routine Primary hypertension PANIAGUA (dyspnea on exertion) Leg edema 11/11/2024 12:05 PM EDT documented as of this encounter Visit Diagnoses Diagnosis Primary hypertension Unspecified essential hypertension PANIAGUA (dyspnea on exertion) Other dyspnea and respiratory abnormality Leg edema Edema documented in this encounter Care Teams Ophthalmic Photographer Relationship Specialty Start Date End Date Eloisa Vázquez DO [address] [place] [address] PCP - General 04/12/24 documented as of this encounter
--- OUTSIDE RECORDS SUMMARY | 2024-11-14 05:45 | XMS_ITS | Clinical Summary ---
Author Organization [facility] Address [address] [address] Phone Care Team Providers Care Helper Driver Name Role Phone Eloisa Vázquez Primary Care Provider [phone] Encounters Date Type Department Care Team Description 11/07/2024 Treatment [facility] [address] [place] [id number] Anthony Norton MD 10/31/2024 Treatment [facility] [address] [address] Anthony Norton MD 10/10/2024 Treatment [facility] [address] [address] Anthony Norton MD 09/30/2024 Treatment [facility] [address] [address] Anthony Norton MD 09/23/2024 Treatment [facility] [address] [address] Anthony Norton MD 09/19/2024 Treatment [facility] [address] [address] Anthony Norton MD 09/12/2024 Treatment [facility] [address] [address] Anthony Norton MD 09/02/2024 Treatment [facility] [address] [address] Anthony Norton MD 08/26/2024 Treatment [facility] [address] [address] Anthony Norton MD 08/23/2024 Treatment [facility] [address] [address] Tony Golden MD 08/17/2024 Treatment [facility] [address] [address] Anthony Norton MD from Last 3 Months Social History Tobacco [...] Foot Exam 08/08/2024 Diabetes: Hemoglobin A1C 12/30/2024 04/2 025, 08/08/2024, 05/31/2024 Influenza Vaccine (Season Ended) 2025 Procedures Procedure Name Priority Date/Time Associated Diagnosis Comments LIH () Routine 11/09/2024 3:00 AM EDT BUN/CREATININE RATIO Routine 11/09/2024 3:00 AM EDT CREATININE CLEARANCE, URINE, 24 HOUR Routine 11/09/2024 3:00 AM EDT KT/V NATURAL LOG, URR () Routine 11/09/2024 3:00 AM EDT HEPATITIS B SURFACE ANTIGEN [...] 24 HOUR Routine 08/17/2024 3:00 AM EST from Last 3 Months Results * LIH (11/09/2024 3:00 AM EDT) Only the most recent of14 resultswithin the time period is included. Pathologist [facility] [place] Lipemia Normal Normal [facility] Icterus Normal Normal [facility] Hemolysis Normal Normal [facility] 11/09/2024 3:00 AM EDT 11/10/2024 12:41 PM EDT us Anthony Norton MD LAB [id number] SOLICITED RESULTS Final Result [facility] [address] [place] [address] * (ABNORMAL) Kt/V Natural Log, URR (11/09/2024 3:00 AM EDT) Only the most recent of3 resultswithin the time period is included. Pathologist [facility] [place] Treatment Time 181 min [facility] Pre-Weight, lb 78.0 kg [facility] Post-Weight, lb 74.8 kg [facility] BUN Post Dialysis 20 7 - 25 mg/dL [facility] BUN 71(H) 7 - 25 mg/dL [facility] UREA REDUCTION RATIO (%) 72 >=65 % [facility] Kt/V Natural Log 1.49 >=1.2 [facility] Ultrafiltration Rate 14(H) <=13 mL/kg/hr [facility] Comment: Recommend achieving Ultrafiltration Rate (UFR) <=10 mL/kg/hr References: Krish PIERCE et al. Kidney Int. 2010; 79(2):250-257 11/09/2024 3:00 AM EDT 11/10/2024 12:14 PM EDT Anthony Norton MD LAB HISTORICAL-CONVE RSIONS-UNSOLICITED RESULTS Edited Result - Final Performing Organization Address [facility] Co de Phone Number [facility] [address] [place] [address] * (ABNORMAL) BUN/CREATININE RATIO (11/09/2024 3:00 AM EDT) Only the most recent of2 resultswithin the time period is included. BUN/Creatinine Ratio 23.1(H) <=23.0 [facility] 11/09/2024 3:00 AM EDT 11/10/2024 12:41 PM EDT Anthony Norton MD LAB [id number] SOLICITED RESULTS Final Result Performing Organization Address [facility] de Phone Number [facility] [address] [place] [address] * (ABNORMAL) Creatinine clearance, urine, 24 hour (11/09/2024 3:00 AM EDT) Only the most recent of4 resultswithin the time period is included. Urine Volume 600 mL [facility] Collection Interval, Ur 1,440 min [facility] Creatinine, Urine 43 mg/dL [facility] Comment:See 24 Hour Urine Cr eatinine for Reference Range in mg/24hr Patient Height (FT) 165.0 cm [facility] Dry Weight 73.0 kg [facility] Creatinine 3.08(H) 0.55 - 1.02 mg/dL [facility] Body Surface Area 1.80 m2 [facility] Comment:Body surface area es timated from Kimberli and Kimberli formula Creatinine renal clearance 5.6(L) 75.0 - 115.0 mL/min/1.7 3m2 [facility] 11/09/2024 3:00 AM EDT 11/10/2024 12:20 PM EDT Anthony Norton MD LAB URINE ORDERABLES Edited R esult - Final Performing Organization Address City/[facility]/ZIP Co de Phone Number [facility] [address] [place] [address] * (ABNORMAL) Calcium Phosphorus Product, Adjusted (11/04/2024 [...] 1:50 PM EDT Anthony Norton MD LAB [id number] SOLICITED RESULTS Final Result Performing Organization Address [facility] Co de Phone Number [facility] [address] [place] [address] * Hepatitis B Surface Ag w/Reflex Confirmation (11/04/2024 3:00 AM EDT) Only the most recent of3 resultswithin the time period is included. Hep B Surface Antigen Negative Negative [facility] 11/04/2024 3:00 AM EDT 11/05/2024 1:50 PM EDT us Anthony Norton MD LAB BLOOD ORDERABLES Final Re sult Performing Organization Address [facility] Co de Phone Number [facility] [address] [place] [address] * (ABNORMAL) TSAT (11/04/2024 3:00 AM EDT) Only the most recent of3 resultswithin the time period is included. Pathologist [facility] [place] Iron 45(L) 50 - 170 ug/dL [facility] Transferrin 136(L) 250 - 380 mg/dL [facility] TIBC 190(L) 211 - 406 ug/dL [facility] Iron Saturation (TSat) 24 22 - 52 % [facility] 11/04/2024 3:00 AM EDT 11/05/2024 1:50 PM EDT Anthony Norton MD LAB BLOOD ORDERABLES Final Re sult Performing Organization Address [facility] de Phone Number [facility] [address] [place] [address] * (ABNORMAL) CBC and Differential (11/04/2024 3:00 AM EDT) Only the most recent of3 resultswithin the time period is included. [facility] DIFFERENTIAL MANUAL, 2 Not Indicated [facility] White [...] ORDERABLES Final Re sult Performing Organization Address [facility] Co de Phone Number [facility] [address] [place] [address] * ALT (11/04/2024 3:00 AM EDT) Only the most recent of3 resultswithin the time period is included. ALT (SGPT) 20 10 - 49 U/L [facility] 11/04/2024 3:00 AM EDT 11/05/2024 1:50 PM EDT Anthony Norton MD LAB BLOOD ORDERABLES Final Re sult Performing Organization Address [facility] de Phone Number [facility] [address] [place] [address] * AST (11/04/2024 3:00 AM EDT) Only the most recent of3 resultswithin the time period is included. AST (SGOT) 13 <34 U/L [facility] 11/04/2024 3:00 AM EDT 11/05/2024 1:50 PM EDT us Anthony Norton MD LAB BLOOD ORDERABLES Final Re sult Performing Organization Address [facility] de Phone Number [facility] [address] [place] [address] * (ABNORMAL) Protein, total (11/04/2024 3:00 AM EDT) Only the most recent of3 resultswithin the time period is included. Total Protein 5.0(L) 6.4 - 8.9 g/dL [facility] 11/04/2024 3:00 AM EDT 11/05/2024 1:50 PM EDT us Anthony Norton MD LAB BLOOD ORDERABLES Final Re sult Performing Organization Address [facility] Co de Phone Number [facility] [address] [place] [address] * Alkaline phosphatase (11/04/2024 3:00 AM EDT) Only the most recent of3 resultswithin the time period is included. Alkaline Phosphatase 73 46 - 116 U/L [facility] 11/04/2024 3:00 AM EDT 11/05/2024 1:50 PM EDT Anthony Norton MD LAB BLOOD ORDERABLES Final Re sult Performing Organization Address [facility] de Phone Number [facility] [address] [place] [address] * Magnesium (11/04/2024 3:00 AM EDT) Only the most recent of3 resultswithin the time period is included. Magnesium 2.3 1.9 - 2.7 mg/dL [facility] 11/04/2024 3:00 AM EDT 11/05/2024 1:50 PM EDT Anthony Norton MD LAB BLOOD ORDERABLES Final Re sult Performing Organization Address [facility] de Phone Number [facility] [address] [place] [address] * (ABNORMAL) Lactate dehydrogenase (11/04/2024 3:00 AM EDT) Only the most recent of3 resultswithin the time period is included. LDH 310(H) 120 - 246 U/L [facility] 11/04/2024 3:00 AM EDT 11/05/2024 1:50 PM EDT Anthony Norton MD LAB BLOOD ORDERABLES Final Re sult Performing Organization Address [facility] de Phone Number [facility] [address] [place] [address] * (ABNORMAL) Glucose, random (11/04/2024 3:00 AM [...] Re sult Performing Organization Address [facility] de Phone Number [facility] [address] [place] [address] * (ABNORMAL) Ferritin (11/04/2024 3:00 AM EDT) Only the most recent of3 resultswithin the time period is included. Ferritin 1,255(H) 10 - 291 ng/mL [facility] 11/04/2024 3:00 AM EDT 11/05/2024 1:50 PM EDT Anthony Norton MD LAB BLOOD ORDERABLES Final Re sult Performing Organization Address [facility] de Phone Number [facility] [address] [place] [address] * (ABNORMAL) Creatinine, serum (11/04/2024 3:00 AM EDT) Only the most recent of2 resultswithin the time period is included. Creatinine 3.16(H) 0.55 - 1.02 mg/dL [facility] 11/04/2024 3:00 AM EDT 11/05/2024 1:50 PM EDT Anthony Norton MD LAB BLOOD ORDERABLES Final Re sult Performing Organization Address [facility] de Phone Number [facility] [address] [place] [address] * (ABNORMAL) Bilirubin, total (11/04/2024 3:00 AM EDT) Only the most recent of3 resultswithin the time period is included. Total Bilirubin 0.2(L) 0.3 - 1.2 mg/dL [facility] 11/04/2024 3:00 AM EDT 11/05/2024 1:50 PM EDT Anthony Norton MD LAB BLOOD ORDERABLES Final Re sult Performing Organization Address [facility] Phone Number [facility] [address] [place] [address] * (ABNORMAL) Electrolyte panel (11/04/2024 3:00 AM [...] ORDERABLES Final Re sult Performing Organization Address [facility] de Phone Number [facility] [address] [place] [address] * (ABNORMAL) Hemoglobin (10/24/2024 3:00 AM EDT) Only the most recent of3 resultswithin the time period is included. Hgb 9.4(L) 11.2 - 15.7 g/dL [facility] Hemoglobin x 3 28.2(L) 33.6 - 47.1 g/dL [facility] 10/24/2024 3:00 AM EDT 10/25/2024 12:58 PM EDT Anthony Norton MD LAB BLOOD ORDERABLES Final Re sult Performing Organization Address [facility] Co de Phone Number [facility] [address] [place] [address] * (ABNORMAL) Basic Metabolic Panel Bundled (10/17/2024 [...] 1:30 PM EDT Anthony Norton MD LAB [id number] SOLICITED RESULTS Final Result Performing Organization Address [facility] de Phone Number [facility] [address] [place] [address] * Collection Date (10/03/2024 3:00 AM EDT) Collection Date See Comment [facility] Comment: Patient sample received may exceed specimen stability, based on the collection date electronically provided. ??When reviewing patient results, verify collection information and consider specimen stability before acting on any critical or panic results. 10/03/2024 3:00 AM EDT Anthony Norton MD LAB [id number] SOLICITED RESULTS Final Result Performing Organization Address [facility] de Phone Number [facility] [address] [place] [address] * PTH, Intact (09/30/2024 3:00 AM EDT) PTH, Intact 273 160 - 721 pg/mL [facility] Comment: Suggested (KDIGO) ESRD maintenance range is two to nine times the upper normal limit (80.1 pg/mL) for the laboratory. 09/30/2024 3:00 AM EDT 10/01/2024 1:31 PM EDT Anthony Norton MD LAB BLOOD ORDERABLES Final Re sult Performing Organization Address [facility] de Phone Number [facility] [address] [place] [address] * (ABNORMAL) Hemoglobin A1c (09/30/2024 3:00 AM [...] Re sult Performing Organization Address [facility] de Phone Number [facility] [address] [place] [address] * (ABNORMAL) Lipid panel (09/30/2024 3:00 AM [...] Final Re sult [facility] [address] [place] [address] * (ABNORMAL) Hemoglobin and hematocrit (09/16/2024 3:00 AM EDT) Only the most recent of2 resultswithin the time period is included. Hgb 8.6(L) 11.2 - 15.7 g/dL [facility] Hematocrit 26.5(L) 34.1 - 44.9 % [facility] Hemoglobin x 3 25.8(L) 33.6 - 47.1 g/dL [facility] 09/16/2024 3:00 AM EDT 09/17/2024 1:04 PM EDT us Anthony Norton MD LAB BLOOD ORDERABLES Final Re sult Performing Organization Address City/[facility]/ZIP Co de Phone Number [facility] [address] [place] [address] * Phosphorus (09/16/2024 3:00 AM EDT) Phosphorus, Serum 3.8 2.5 - 5.0 mg/dL [facility] 09/16/2024 3:00 AM EDT 09/17/2024 1:09 PM EDT Anthony Norton MD LAB BLOOD ORDERABLES Final Re sult Performing Organization Address [facility] de Phone Number [facility] [address] [place] [address] from Last 3 Months Insurance [id number] Medicare Care Teams Helper Driver Relationship Specialty Start Date End Date Eloisa Vázquez [address] [place] [id number] PCP - General Internal Medicine 07/11/24
--- OUTSIDE RECORDS SUMMARY | 2024-11-14 05:45 | XMS_ITS | Clinical Summary ---
Author Organization [facility] Address [address] [place] [address] Care Team Providers Care Shell Freezing Machine Operator Name Role Phone GurpreetEloisa Primary Care Provider [phone] Allergies No known active allergies Medications Medication [...] age to complete this topic Care Teams Shell Freezing Machine Operator Relationship Specialty Start Date End Date Eloisa Vázquez DO [address] [address] PCP - General Internal Medicine 04/07/24
--- OUTSIDE RECORDS SUMMARY | 2024-11-14 05:45 | XMS_ITS | Encounter Summary ---
Author Organization [facility] Address [address] [place] [address] Care Team Providers Care Spindraw Operator Name Role Phone Eloisa Vázquez DO Primary Care Provider [phone] Encounter Details Date Type Department Care Team (Late st Contact Info) Description 11/01/2024 Telephone Thoracic Surgery - [address] [place] [address] Evy Cope MA Social History [...] 09/12/2024 11:24 PM Latrell Richard RN * Are you blind or do [...] 09/12/2024 11:24 PM Latrell Richard RN * Because of a physical, mental, [...] Info) Description 11/14/2024 11:30 AM EDT Appointment [facility] CT Scan [address] [place] [address] 12/01/2024 10:00 AM EDT Office Visit Thoracic Surgery - [place] [address] [address] Cecily Montez MD [address] [address] 12/08/2024 1:15 PM EDT Office Visit Internal Medicine - [facility] [address] [place] [address] Eloisa Vázquez, [address] [place] [address] documented as of this encounter Visit Diagnoses Not on filedocumented in this encounter Care Teams Spindraw Operator Relationship Specialty Start Date End Date Eloisa Vázquez DO [address] [place] [address] PCP - General 04/12/24 documented as of this encounter
--- OUTSIDE RECORDS SUMMARY | 2024-11-14 05:45 | XMS_ITS | Encounter Summary ---
Author Organization [facility] Address [address] [place] [address] Care Team Providers Care Rag Inspector Name Role Phone Marie Vázquezmankamryn CHERY Primary Care Provider Encounter Details Date Type Department Care Team (Late st Contact Info) Description 04/12/2024 1:41 PM EDT Hospital Encounter TH HISTORIC ENCOUNTERS EASTERN CONVERSION ONLY Jaime Grimaldo MD [address] [place] [id number] Social History Tobacco Use Types Packs/Day Years [...] summerof this year while she was in [place] developed some respiratory infection/COVID, patient also have [...] issues, was seen by a physician in [place] (in urgent care clinic), CT scan of [...] Info) Description 11/14/2024 11:30 AM EDT Appointment [facility] CT Scan [address] [place] [id number] 12/01/2024 10:00 AM EDT Office Visit Thoracic Surgery - [place] [address] [phone] Cecily Montez MD [address] [address] 12/08/2024 1:15 PM EDT Office Visit Internal Medicine - [place] [address] [place] [address] Eloisa Vázquez DO [address] [place] [address] documented as of this encounter Procedures Procedure [...] documented as of this encounter Care Teams Rag Inspector Relationship Specialty Start Date End Date Marie VázquezmanDO kamryn [address] [place] [address] PCP - General 04/12/24 documented as of this encounter
--- OUTSIDE RECORDS SUMMARY | 2024-11-14 05:46 | XMS_ITS | Clinical Summary ---
Author Organization [facility] Address [address] [place] [address] Care Team Providers Care Shim Plug Cutter Name Role Phone Eloisa Vázquez DO Primary Care Provider [phone] Allergies No known active allergies Medications cetirizine [...] Kana Fernández or Maribeth d/t onsite HD. [facility] accepting w family to provide HD [...] general and how their size, shape, and telephone exchange operator time affect her level of [...] weeks. 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 Hypertension 06/01/2024 Hyperlipidemia 06/01/2024 History of cancer of unknown primary site 2023 CKD (chronic kidney disease) stage 4, GFR 15-29 ml/min ([facility] V24, [facility] V28) 06/01/2024 Iron deficiency anemia 06/01/2024 Assessment & Plan (08/23/2024 4:46 PM EST): Patient and her daughter decline GI workup for iron deficiency anemia. See H&P Impaired renal function 06/01/2024 Type 2 diabetes mellitus wit hout complication, without long-term current use of insulin ([facility] V24, [facility] V28) 06/01/2024 Resolved Problems Problem Noted Date Diagnosed Date Resolved Date Acute encephalopathy 07/08/2024 025 Encounters Date Type Department Care Team Description 11/11/2024 11:00 AM EDT Ancillary Procedure [facility] - [facility] [address] [facility] [address] [place] [phone] Primary hypertension; PANIAGUA (dyspnea on exertion); Leg edema 11/01/2024 Telephone Thoracic Surgery - [place] [address] [facility] [address] [place] [address] Evy Cope MA 10/17/2024 1:20 PM EDT Telemedicine Endocrinology - [address] [address] Kathy Michelle PA Type 2 diabetes mellitus without complication, without long-term current use of insulin ([facility] V24, [facility] V28) (Primary Dx); CKD (chronic kidney disease) stage 4, GFR 15-29 ml/min ([facility] V24, [facility] V28) 09/12/2024 5:08 PM EDT - 09/13/2024 12:[address] [facility] Emergency [address] [place] [phone] Anthony Sparks MD Fall, initial encounter (Primary Dx); Acute cystitis without hematuria Discharge Disposition: Home or Self Care 09/06/2024 4:40 PM EDT Office Visit Endocrinology - [address] [address] Kathy Michelle PA Type 2 diabetes mellitus without complication, without long-term current use of insulin (CMS/HCC V24, CMS/HCC V28) (Primary Dx); CKD (chronic kidney disease) stage 4, GFR 15-29 ml/min (CMS/HCC V24, CMS/HCC V28); Primary hypertension 08/23/2024 3:00 PM EST Office Visit Gastroenterology - [address] [place] [phone] Josiane Smith, LEASING PROPERTY MANAGER Iron deficiency anemia, unspecified iron deficiency anemia type; History of cancer of unknown primary site 08/22/2024 8:30 AM EST - 08/22/2024 11:59 PM EST Hospital Encounter [address] [phone] Chencho Wayne MD Crescentic glomerulonephritis (Primary Dx); Cresentic glomerulonephritis of transplanted kidney Discharge Disposition: Home or Self Care 08/22/20[address] [phone] Haley Andrews LMSW from Last 3 Months Surgical History Surgery [...] COPD Brother 3 Alive COPD Brother 4 [place] Daughter Alive Healthy Father (Age 54) [place] Mother (Age 93) Osteoporos is, HTN, Arthritis [...] Mass Index 25.75 11/11/2024 12:05 PM EDT Plan of Treatment Upcoming Encounters Date Type Department Care Team (Late st Contact Info) Description 11/14/2024 11:[address] [facility] CT Scan [address] [place] [address] 12/01/2024 10:00 AM EDT Office Visit Thoracic Surgery - [place] [address] [facility] [address] [place] [phone] Cecily Montez MD [address] [address] 12/08/2024 1:15 PM EDT Office Visit Internal Medicine - [facility] [address] [place] [address] Eloisa Vázquez DO [address] [place] [address] Health Maintenance Due Date Last Done Comments [...] 2024 04/21/2022, 10/14/2021, 03/27/2021, Additional history exists Hepatitis B Vaccines (3 of 3 - 19+ 3-dose series) 03/08/2025 10/07/2024, 09/05/2024 Diabetes: Blood Sugar Control Test (HGBA1C) 04/01/2025 09/30/2024, 09/30/2024, 08/08/2024, Additional history exists Falls Risk Assessment 08/22/2025 08/22/2024 Hypertension/CHF/CAD Annual BMP Blood Test 10/17/2025 10/17/2024, 10/10/2024, 10/03/2024, Additional history exists Cholesterol Screening (Lipid Panel) 09/30/2029 09/30/2024, 08/08/2024, 05/31/2024 DTaP,Tdap,and Td Vaccines (3 - Td or Tdap) 09/29/2032 09/29/2022, 08/12/2012 Influenza Vaccine Completed 03/22/2024, , 03/24/2022, Additional history exists Pneumococcal Vaccine: 50+ Years Completed 09/12/2024, 05/31/2015, 08/02/2010 HIB Vaccines Aged Out No longer eligi [...] this topic Medical Devices Implanted Type Area Waterproof Coating Machine Tender Device Identifier Shelf Expiration Date Model / Serial / Lot Cath Dial W/Vt Kt [id number] Palindrome Precision - [id number] - [id number] Implanted:Qty: 1 on 07/15/2024 by Fela Palomo MD at [facility] Dialysis Catheters Left: Chest Wall [facility] [id number] 09/26/2028 [id number] [id number] / [id number] / [id number] Sponge Surgifoam Gel 12 X 7mm - [id number] - [id number] Implanted:Qty: 1 on 05/23/2024 by Fela Palomo MD at [facility] Hemostasis Right: Lung [employer] [id number] 08/27/20271971 [id number] / Sponge Surgifoam Gel 12 X 7mm - [id number] - [id number] Implanted:Qty: 1 on 07/22/2024 by Fela Palomo MD at [facility] Hemostasis Left: Kidney [employer] [id number] 05/24/20281971 [id number] / Procedures Procedure Name Priority Date/Time Associated [...] Cataract, diabetic (CMS/HCC V24, CMS/HCC V28) Hyperlipemia [facility] DEXA AXIAL SKELETON Routine 04/15/2018 10:29 [...] GEMUSE QTc 462 ms GEMUSE P Wave Sparta 66 degrees GEMUSE R Sparta 15 degrees GEMUSE T Sparta 11 degrees GEMUSE ECG Interpretation Sinus rhythm with Premature atrial complexes Right bundle branch block Abnormal ECG When compared with ECG of 12-SEP-2024 21:12, No significant change was found Confirmed by MD Ramon, [facility] ([id number]) on 09/14/2024 10:02:49 AM GEMUSE 09/12/2024 9:12 PM EDT 09/14/2024 10:02 AM EDT Jose HEDRICK ECG ORDERABLES Final Result GEMUSE * (ABNORMAL) Troponin I high sensitivity (NOW and then in 1 hour) (09/12/2024 8:27 PM EDT) Only the most recent of2 resultswithin the time period is included. [facility] High Sensitivity Troponin I 110(H) <=54 ng/L LAB CHEMISTRY METHOD 09/12/2024 10:11 PM EDT [facility] Blood Venous blood specimen / Unknown Venipuncture / Unknown 09/12/2024 8:27 PM EDT 09/12/2024 9:33 PM EDT Narrative [facility] - 09/12/2024 10:11 PM EDT High levels of biotin in samples may falsely decrease hsTroponin values. ??Use caution when interpreting hsTroponin results in patients taking biotin who exhibit renal impairment (eGFR <60) or in patients taking more than 20 mg/day of biotin. us Madan Braga MD LAB BLOOD ORDERABLES Final Resu lt [facility] [address] [place] [address], [place] [phone] * CT Cervical Spine wo Contrast (09/12/2024 [...] MD on 09/12/2024 20:55:04 Madan Braga MD [facility] PROCEDURES Final Result * CT Head [...] on 09/12/2024 20:56:04 us Madan Braga MD [facility] PROCEDURES Final Result * (ABNORMAL) Urinalysis with reflex microscopic and culture (09/12/2024 6:38 PM EDT) Specific Drums Urine 1.025 1.003 - 1.030 LAB URINALYSIS - AUTOMATED METHOD 09/12/2024 8:45 PM [facility] pH, Urine 6.5 5.0 - [...] epithelial cells. /LPF 09/12/2024 8:45 PM EDT [facility] Bacteria, Urine Many(A) Negative /HPF 09/12/2024 8:45 PM EDT [facility] Hyaline Casts, Urine 3 0 - 3 /LPF 09/12/2024 8:45 PM EDT [facility] Other Casts, Urine 2-5 Coarse Granular casts. Rare Fine Granular casts. Rare Waxy casts. /LPF 09/12/2024 8:45 PM EDT [facility] Urine Urine specimen obtained by clean catch procedure / Unknown Non-blood Collection / Unknown 09/12/2024 6:38 PM EDT 09/12/2024 7:59 PM EDT Anthony Sparks MD LAB URINE ORDERABLES Final Result Performing Organization Address City/[facility]/ZIP Co de Phone Number [facility] [address] [place] [address], [place] [phone] * Robertson urine culture tube (09/12/2024 6:38 PM EDT) Pathologist [facility] Extra Tube Hold for add-ons. 09/12/2024 9:01 PM EDT [facility] Comment:Auto resulted. Urine Urine specimen obtained by clean catch procedure / Unknown Non-blood Collection / Unknown 09/12/2024 6:38 PM EDT 09/12/2024 7:59 PM EDT Anthony Sparks MD LAB URINE ORDERABLES Final Result Performing Organization Address City/[facility]/ZIP Co de Phone Number [facility] [address] [place] [address], [place] [phone] * (ABNORMAL) Culture urine (09/12/2024 6:38 PM EDT) Culture, Urine >100,000 CFU/mL Pseudomonas aeruginosa(A) KIRILL 09/16/2024 9:53 AM EDT [facility] Comment: This is an edited result. Previous organism was Gram negative bacilli on 09/15/2024 at 1216 EDT. Culture, Urine >100,000 CFU/mL Enterococcus faecalis(A) KIRILL 09/16/2024 9:53 AM EDT [facility] Comment: The organism value for [...] KIRILL 2 ug/ml: Susceptible Pseudomonas aeruginosa Amikacin IKRILL 4 ug/ml: Susceptible Pseudomonas aeruginosa Ciprofloxacin KIRILL [...] LAB MICROBIOLOGY - GENERAL ORDERABLES Final Result [facility] [address] [place] [address], * (ABNORMAL) CBC auto differential (09/12/2024 6:22 PM EDT) WBC 6.9 4.8 - 10.8 K/mcL LAB HEMETOLOGY METHOD 09/12/2024 6:51 PM EDT [facility] RBC 2.80(L) 3.80 - 4.80 M/mcL LAB HEMETOLOGY METHOD 09/12/2024 6:51 PM EDT [facility] Hemoglobin 8.2(L) 11.5 - 16.0 g/dL LAB HEMETOLOGY METHOD 09/12/2024 6:51 PM EDT [facility] Hematocrit 25.2(L) 35.0 - 47.0 % LAB HEMETOLOGY METHOD 09/12/2024 6:51 PM EDT [facility] MCV 90.0 79.0 - 98.0 FL LAB HEMETOLOGY METHOD 09/12[facility]2024 6:[facility] MCH 29.3 27.0 - 32.0 pcg LAB HEMETOLOGY METHOD 09/12/2024 6:51 PM [facility] MCHC 32.5 32.0 - 37.0 g/dL LAB HEMETOLOGY METHOD 09/12/2024 6:51 PM [facility] RDW 20.2(H) 11.0 - 15.0 % LAB HEMETOLOGY METHOD 09/12/2024 6:51 [facility] Platelets 179 130 - 400 K/mcL LAB HEMETOLOGY METHOD 09/12/2024 6:51 [facility] MPV 10.4 7.0 - 11.0 FL LAB HEMETOLOGY METHOD 09/12/2024 6:51 PM [facility] NRBC 0.0 <1.0 % LAB HEMETOLOGY METHOD 09/12/2024 6:51 [facility] NRBC Absolute 0.00 <0.10 K/mcL LAB HEMETOLOGY METHOD 09/12/2024 6:51 PM [facility] Neutrophils Relative 88.7 % LAB HEMETOLOGY METHOD 09/12/2024 6:51 PM EDT [facility] Lymphocytes Relative 6.7 % LAB HEMETOLOGY METHOD 09/12/2024 6:51 PM EDT [facility] Monocytes Relative 3.0 % LAB HEMETOLOGY METHOD 09/12/2024 6:51 PM EDT [facility] Eosinophils Relative 0.1 % LAB HEMETOLOGY METHOD 09/12/2024 6:51 PM EDT [facility] Basophils Relative 0.0 % LAB HEMETOLOGY METHOD 09/12/2024 6:51 [facility] Immature Granulocytes Relative 1.5 % LAB HEMETOLOGY METHOD 09/12/2024 6:51 PM [facility] Neutrophils Absolute 6.11 1.50 - 7.00 K/mcL LAB HEMETOLOGY METHOD 09/12/2024 6:51 PM [facility] Lymphocytes Absolute 0.46(L) 1.00 - 5.00 K/mcL LAB HEMETOLOGY METHOD 09/12/2024 6:51 PM [facility] Monocytes Absolute 0.21 0.20 - 1.00 K/mcL LAB HEMETOLOGY METHOD 09/12/2024 6:51 PM [facility] Eosinophils Absolute 0.01 0.00 - 0.50 K/mcL LAB HEMETOLOGY METHOD 09/12/2024 6:51 PM [facility] Basophils Absolute 0.00 0.00 - 0.20 K/mcL LAB HEMETOLOGY METHOD 09/12/2024 6:51 PM [facility] Immature Granulocytes Absolute 0.10(H) 0.00 - 0.03 K/mcL LAB HEMETOLOGY METHOD 09/12/2024 6:51 PM [facility] Blood Venous blood specimen / Unknown Venipuncture / Unknown 09/12/2024 6:22 PM EDT 09/12/2024 6:42 PM EDT us Madan Braga MD LAB BLOOD ORDERABLES Final Resu lt [facility] [address] [place] [address], [place] [phone] * (ABNORMAL) Basic Metabolic Panel (BMP) (09/12/2024 6:22 PM EDT) [facility] Sodium 137 133 - 145 mmol/L LAB CHEMISTRY METHOD 09/12/2024 7:15 PM EDT [facility] Potassium 4.1 3.5 - [...] LAB CHEMISTRY METHOD 09/12/2024 7:15 PM EDT [facility] Calcium 8.0(L) 8.5 - 10.5 mg/dL LAB CHEMISTRY METHOD 09/12/2024 7:15 PM EDT [facility] Blood Venous blood specimen / Unknown Venipuncture / Unknown 09/12/2024 6:22 PM EDT 09/12/2024 6:42 PM EDT us Madan Braga MD LAB BLOOD ORDERABLES Final Resu lt [facility] [address] [place] [address], [place] [phone] * Lipid panel with reflex to direct LDL (05/31/2024 9:22 AM EST) Cholesterol 131 0 - 200 mg/dL LAB CHEMISTRY METHOD 05/31/2024 12:51 PM [facility] Triglycerides 113 0 - 150 mg/dL LAB CHEMISTRY METHOD 05/31/2024 12:51 PM EST [facility] HDL 60 >=40 mg/dL LAB CHEMISTRY METHOD 05/31/2024 12:51 PM EST [facility] LDL Calculated 48 0 - 100 mg/dL LAB CHEMISTRY METHOD 05/31/2024 12:51 PM [facility] VLDL Cholesterol Hunter 22.6 mg/dL LAB CHEMISTRY METHOD 05/31/2024 12:51 PM [facility] Non HDL Chol. (LDL+VLDL) 71 <145 mg/dL LAB CHEMISTRY METHOD 05/31/2024 12:51 PM [facility] Chol/HDL Ratio 2.2 0.0 - 4.4 LAB CHEMISTRY METHOD 05/31/2024 12:51 PM [facility] Blood Venous blood specimen / Unknown Venipuncture / Unknown 05/31/2024 9:22 AM EST 05/31/2024 9:22 AM EST us Kayleigh Milo WILD LAB BLOOD ORDERABLES Final Resul t [facility] [address] [place] [address], * SALLY DEXA AXIAL SKELETON (04/15/2018 10:29 AM EDT) Anatomical Region Laterality Modality Mammography 04/15/2018 9:39 AM EDT Narrative 04/15/2018 10:[address] [facility] Diagnostic Imaging Department [address] [place] [address] Patient: ??CONTRERAS,ANA A ?/Age/Sex: 1945 - 73 - F Unit#: ??[id number] ? Location/Status: ??[facility]AM/[facility] CLI ? Mnemonic/Ordering Site: ??MAMDEXAAX/SPMAM Ordering Physician: ??VIVIEN SANTIZO MD [facility] Dexa Axial Skeleton - 04/15/181003 HISTORY: ??The [...] probability of hip fracture of 2.2%. Code 37160 Dictating Physician: ??JAILYN BARAHONA MD Electronically Signed by: ??JAILYN BARAHONA MD Dic Date/Time: ??04/15/18 1028 Sign date/Time: ??04/15/18 1029 Procedure Note Jailyn Barahona MD - 06/17/2022 [facility] Diagnostic Imaging Department [address] [place] [address] Patient: ANA CONTRERASO.B./Age/Sex: 1945 - 73 - F Unit#: [id number] Location/Status: SPDIMAM/REG CLI [facility] Ordering Physician: VIVIEN SANTIZO MD Sally [...] density of the femurs bilaterally is 0.854 gm/rz1otcor is 85% of that of young normals [...] probability of hip fracture of 2.2%. Code 76959 Dictating Physician: JAILYN BARAHONA MD Electronically Signed by: JAILYN BARAHONA MD Dic Date/Time: 04/15/18 1028 Sign date/Time: 04/15/18 1029 Vivien Santizo MD IMG BI PROCEDURES Final Result from Last 3 Months or Most Recently Relevant to Health Maintenance Insurance [employer] MEDICARE Advance Directives Documents on File Type Date Recorded Patient Fitness Attendant Expl anation Advance Directives and Living Will [...] Second Alternate Health Care Agent Care Teams Shim Plug Cutter Relationship Specialty Start Date End Date Eloisa Vázquez DO [address] [place] [address] [place] [address] PCP - General 04/12/24
[2024-11-14 06:18] LABS: Hematocrit 32.2 % (37.0-47.0); Hemoglobin 10.6 g/dl (12.0-16.0); Mean Corpuscular HGB Conc 32.9 g/dl (31.0-35.0); Mean Corpuscular Hemoglobin 32.5 pg (27.0-33.0); Mean Corpuscular Volume 98.8 fL (80.0-98.0); Mean Platelet Volume 10.7 fL (9.4-12.3); NRBC Pct Auto 0.8 /100WBC (0.0-0.2); Platelet Count 176 X10*3/uL (160-400); Red Blood Count 3.26 X10*6/uL (4.20-5.50); Red Cell Distribution Width 15.5 % (11.0-16.0); White Blood Count 7.7 X10*3/uL (4.8-10.8)
[2024-11-14 06:50] LABS: Anion Gap 17 (12-20); Blood Urea Nitrogen 66 mg/dL (9-16); Carbon Dioxide 17 mmol/L (22-29); Chloride 103 mmol/L (96-108); Estimated Glomerular Filt Rate 14; Glucose Random 254 mg/dL (60-115); Potassium 4.8 mmol/L (3.3-5.1); Sodium 132 mmol/L (135-145)
[2024-11-14 07:18] LABS: Band Neutrophils Percent 6 % (3-5); Lymphocytes Absolute Manual 0.4 X10*3/uL (1.2-4.9); Lymphocytes Percent Manual 5 % (20-40); Metamyelocytes Absolute 0.2 X10*3/uL; Metamyelocytes Percent 3 %; Monocytes Absolute Manual 0.2 X10*3/uL (0.1-1.2); Monocytes Percent Manual 3 % (2-11); Myelocytes Absolute 0.3 X10*/uL; Myelocytes Percent 4 %; Neutrophils Absolute Manual 6.5 X10*3/uL (2.0-8.3); Neutrophils Percent Manual 79 % (45-73)
[2024-11-14 07:20] LABS: Burr Cells 1+ (0-2) /OIF; Platelet Estimate NORMAL (NORMAL); Platelet Morphology Comment NORMAL; Polychromasia 1+ (0-2) /OIF; RBC Morphology NOTED; Schistocytes 1+ (0-2) /OIF
== END 2024-11-14 05:40 | disposition home or self-care (01) ==
LOC: HO.MMNH1L 05:39
PROVIDERS: Visit Provider Family Medicine
DX: E11.9 Type 2 diabetes mellitus without complications (principal)
CPT/HCPCS: 36415; 80048; 85007; 85025; 85027

== ENCOUNTER 2024-11-22 06:36 | Outpatient (REF) | payer MEDICARE, SELFPAY ==
[2024-11-22 05:59] LABS: MANUAL DIFF FLAG NO
[2024-11-22 06:28] LABS: Basophils Percent Auto 0.1 % (0-2); Eosinophils Percent Auto 0.1 % (0-4); Hematocrit 28.6 % (37.0-47.0); Hemoglobin 9.5 g/dl (12.0-16.0); Imm Gran Abs Auto 0.34 X10*3/uL (0.00-0.03); Lymphocytes Absolute Auto 0.7 X10*3/uL (1.2-4.9); Lymphocytes Percent Auto 8.4 % (20-40); Mean Corpuscular HGB Conc 33.2 g/dl (31.0-35.0); Mean Corpuscular Hemoglobin 32.9 pg (27.0-33.0); Mean Platelet Volume 10.6 fL (9.4-12.3); Monocytes Absolute Auto 0.4 X10*3/uL (0.1-1.2); Monocytes Percent Auto 5.1 % (2-11); NRBC Pct Auto 0.2 /100WBC (0.0-0.2); Neutrophils Absolute Auto 6.9 x10*3/uL (2.0-8.3); Neutrophils Percent Auto 82.3 % (45-73); Platelet Count 133 X10*3/uL (160-400); Red Blood Count 2.89 X10*6/uL (4.20-5.50); Red Cell Distribution Width 15.3 % (11.0-16.0); White Blood Count 8.4 X10*3/uL (4.8-10.8)
--- OUTSIDE RECORDS SUMMARY | 2024-11-22 06:38 | XMS_ITS | Encounter Summary ---
Author Organization [facility] Address [address] [place] [address] Care Team Providers Care Chemical Instrumentation Officer Name Role Phone Eloisa Vázquez DO Primary Care Provider [phone] Reason for Referral * Imaging (Routine) - Pending Review Specialty Diagnoses / Procedures Referred By Daksha godoy Referred To Contact Radiology Diagnoses Pulmonary nodule Procedures CT Chest wo Contrast Cecily Montez MD [address] [address] Phone: tel: fax: [facility] [address] [place] [address] Phone: tel: Referral ID Status Reason Start Date Expiration Date V isits Requested Visits Authorized [id number] Pending Review 11/18/2024 11/18/2025 1 1 Encounter Details Date Type Department Care Team (Late st Contact Info) Description 11/18/2024 1:30 PM EDT Telemedicine Thoracic Surgery - [place] 299 [facility] [address] [place] [address] Cecily Montez MD 299 [facility] [address] [place] [address] Pulmonary nodule (Primary Dx) Social History Tobacco Use Types Packs/Day Years [...] Latrell Richard RN documented in this encounter Progress Notes * Cecily Montez MD - 11/18/2024 1:30 PM EDT FOLLOWUP IMAGING NOTE I have obtained verbal consent from Ana Contreras prior to the recording. I have advised Ana Contreras that she may refuse the recording and require the recording to be turned off at any time during this encounter. Patient name: Ana Contreras : 1945 Date of Visit: 11/18/2024 PCP: Eloisa Vázquez DO No chief complaint on file. HPI Ms. Contreras is a 79 y.o. female who presents for a follow-up visit after their recent CT chest. 79-year-old woman non-smoker never smoker who over [...] chest pain, or shortness of breath. She is still at [facility] and getting dialysis 3 times per week. A follow-up CT scan of the chestwas done on 11/14/2024 which showed decrease in size of the opacity that was nodule at the right apex there is no lymphadenopathy and no pleural fluid the current size is 4 x 2 x 2 m decreasing from 6x 3 x 3 cm. She does deny unintentional weight loss but does report significant fatigue as above for the past 6months. She denies chest pain cough or hemoptysis. She does report shortness of breath with activity. She denies any new neurologic symptoms. History of Present Illness Results Past Medical History: Diagnosis Date Anemia Arthritis Blindness Decreased vision 11/29/2014 DX:Decreased vision Diabetes mellitus, type 2 (CMS/HCC V24, CMS/HCC V28) 02/14/2014 DX:Diabetes mellitus, type 2 (HCC) DVT, lower extremity (CMS/HCC V24, CMS/HCC V28) LEFT LEG Family history of early CAD [...] PROCEDURE: ---- OTHER ----; COMMENT: lumbar microdiscectomy No Known Allergies Current Outpatient Medications on File Prior to Visit Medication Sig Dispense Refill Accu-Chek Softclix Lancets CHECK BLOOD SUGAR TWICE DAILY 200 each 2 Accu-Chek Softclix Lancets apixaban (ELIQUIS) 5 mg tablet Take 2 tablets (10 mg total) by mouth 2 (two) times a day for 3 days, THEN 1 tablet (5 mg total) 2 (two) times a day. blood sugar diagnostic (Accu-Chek Kait Plus test strp) test strip CHECK BLOOD SUGAR TWICE DAILY 200 strip 2 blood sugar diagnostic (Accu-Chek Kait Plus test strp) test strip carvediloL (COREG) 3.125 mg tablet Take by [...] total) by mouth every morning with breakfast insulin glargine (LANTUS SoloStar) 100 unit/mL (3 mL) injection pen 10 untis at bedtime insulin lispro (HumaLOG KwikPen) 100 unit/mL injection pen Use three times a day before meals: <100: 0 units, 151-200: 2 units, 201-250: 4 units, 251-300: 6 units, 301-350: 7 units, 351-400: 8 units, >400: call me and use 9 units lisinopriL (PRINIVIL,ZESTRIL) 10 mg tablet TAKE 1 TABLET BY MOUTH DAILY 100 tablet 0 metFORMIN (GLUCOPHAGE) 500 mg tablet Take 2 tablets (1,000 mg total) by mouth 2 (two) times a day with meals. simvastatin (ZOCOR) 20 mg tablet TAKE 1 TABLET BY MOUTH AT BEDTIME 100 tablet 0 No current facility-administered medications on file prior to visit. 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 [employer] Review of Systems General - Negative for: weight loss/gain, fatigue, [...] depression, anxiety, nervousness, stress, memory change, SI/HI Radiology Reviewed and interpreted by me directly as above I personally viewed the following imaging studies, in addition to reviewing the dictated report from the reading radiologist Assessment/Plan Problem List Items Addressed This Visit Pulmonary nodule - Primary Relevant Orders CT Chest wo Contrast Assessment & Plan 79-year-old woman with video visit with her daughter present now with a nodule that is decreasing in size with negative biopsies very encouraging. I discussed the findings of the CT scan with her in detail which she and her daughter seem to understand. 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 Due to its decrease in size over time I have a lower suspicion now especially in combination with a negativebiopsy. Will be for 6-month follow-up CT scan of the chest and a visit with me after that. Total time spent on date of this encounter: 33 minutes Reviewing patient's chart, Independently reviewing current/past imaging, Visit with the patient, Counseling and educating patient/family on diagnosis, Discussion of ongoing management, and Documenting clinical information in the patient's medical record Cecily Montez MD on 11/18/2024 at 2:07 PM EDT CC: No ref. provider found Eloisa Vázquez DO documented in this encounter Plan of Treatment Upcoming Encounters Date Type Department Care Team (Late st Contact Info) Description 12/08/2024 1:15 PM EDT Office Visit Internal Medicine - [facility] [address] [place] [address] Eloisa Vázquez DO [address] [place] [address] Scheduled Orders Name Type Priority Associated Diagnoses Orde r Schedule CT Chest wo Contrast Imaging Routine Pulmonary nodule Expected: 05/21/2025, Expires: 11/18/2025 documented as of this encounter Visit Diagnoses Diagnosis Pulmonary nodule- Primary Other diseases of lung, not elsewhere classified documented in this encounter Care Teams Chemical Instrumentation Officer Relationship Specialty Start Date End Date Eloisa Vázquez DO [address] [place] [address] PCP - General 04/12/24 documented as of this encounter
[2024-11-22 06:58] LABS: Anion Gap 15 (12-20); Blood Urea Nitrogen 42 mg/dL (9-16); Carbon Dioxide 23 mmol/L (22-29); Chloride 103 mmol/L (96-108); Estimated Glomerular Filt Rate 18; Glucose Random 125 mg/dL (60-115); Potassium 3.9 mmol/L (3.3-5.1); Sodium 137 mmol/L (135-145)
== END 2024-11-22 06:37 | disposition home or self-care (01) ==
LOC: HO.MMNH1L 06:36
PROVIDERS: Visit Provider Family Medicine
DX: E11.9 Type 2 diabetes mellitus without complications (principal)
CPT/HCPCS: 36415; 80048; 85025

== ENCOUNTER 2024-11-25 08:52 | Inpatient (IN) | payer MEDICARE, SELFPAY ==
[2024-11-25] VITALS (82 sets, daily range): BP systolic 75–175; BP diastolic 26–80; PULSE 35–166; RESP 25–37; TEMP 32–36.9; O2SAT 90–100; BMI 26.2
--- NOTE | 2024-11-25 | ECG_ITS ---
Test Reason : Elevated trop Blood Pressure : */* mmHG Vent. Rate : 79 BPM Atrial Rate : 79 BPM P-R Int : * ms QRS Dur : 134 ms QT Int : 368 ms P-R-T Axes : 72 97 -79 degrees QTcB Int : 421 ms Undetermined rhythm Possible Normal sinus rhythm with Accelerated Idioventricular rhythm with AV block with Premature ventricular complexes Rightward axis Abnormal ECG When compared with ECG of 25-Nov-2024 21:12, Accelerated Idioventricular rhythm with AV block has replaced Atrial tachycardia Questionable change in QRS duration Minimal criteria for Septal infarct are now Present Referred By: Daria Valverde Electronically Signed By: BAR MONTES DE OCA MD
--- NOTE | ~2024-11-25 | CT_ITS ---
EXAMINATION: CT CHEST WITHOUT CONTRAST CLINICAL INFORMATION: Cardiac arrest. COMPARISON: None available. TECHNIQUE: Multidetector volumetric CT imaging of the chest was done. Axial MIP volume rendering provided. Sagittal and coronal reformatted images were obtained. This CT examination was performed using dose optimization techniques as appropriate, variously including the following: *Automated exposure control *Adjustment of mA and/or kV according to patient size (this includes techniques or standardized protocols for targeted exams where dose is matched to indication/reason for exam; i.e. extremities or head) *Use of iterative reconstruction technique FINDINGS: LUNGS: There are linear reticular changes in the right upper lobe extending into the apex, the posterior left upper lobe, and involving both lower lobes with mild volume loss, bronchiectasis, and subpleural atelectasis. There is no pleural effusion or pneumothorax. Small airways are thickened. Central airways appear patent. There is an endotracheal tube in place, approximately 3 cm proximal to the vicky, in good position. Previously seen scattered pulmonary nodules, some cavitary, appear to have largely resolved. Some may be obscured by lower lobe atelectatic changes. MEDIASTINUM: Diminutive appearing thyroid. Aorta is normal in caliber and course with moderate atheromatous calcification. Mildly prominent main pulmonary artery. Mild cardiomegaly with extensive coronary calcifications. There is a left-sided central venous catheter in place, tip terminating in the right atrium superiorly. NG tube coursing through the esophagus, terminating in the stomach. CORONARY ARTERY CALCIFICATION: Heavy three-vessel calcification. PLEURA: There is no pleural effusion. No pleural mass or thickening. AXILLA/CHEST WALL: No lymphadenopathy or mass. Left IJ tunneled venous catheter. Defibrillator pad noted over the right hemithorax. UPPER ABDOMEN: Please refer to the dedicated CT abdomen and pelvis exam. OSSEOUS STRUCTURES: Osteopenia. Degenerative changes throughout the spine. No acute bony abnormalities. CT/CT chest wo IV con IMPRESSION: 1. Reticular scarring/atelectasis within the right upper lobe, and bilateral lower lobes with associated mild bronchiectasis, and subpleural atelectasis. 2. No pleural effusion or pneumothorax. 3. Lungs otherwise clear without consolidative opacity. Previously seen small cavitary lung nodules appear to have essentially resolved. 4. Support devices in good position. Electronically signed by: Jose Connors MD 11/25/2024 12:38 PM EDT RP
--- NOTE | ~2024-11-25 | CT_ITS ---
EXAMINATION: CT CERVICAL SPINE WITHOUT IV CONTRAST HISTORY: neck injury. TECHNIQUE: Helical CT of the cervical spine was performed per standard departmental protocol. Coronal and sagittal reformatted images were also evaluated. One or more of the following techniques was used for dose reduction: Automated exposure control, adjustment of the mA and/or kV according to patient size, use of iterative reconstruction technique. DLP: 354.6 mGy-cm COMPARISON: There are no prior studies available for comparison. FINDINGS: CERVICAL SPINE: The bones are osteopenic. The vertebral bodies maintain normal height and alignment without evidence of fracture or subluxation. There is diffuse mild degenerative disc disease with disc space narrowing and osteophyte formation. Evaluation for disc pathology is limited by lack of intrathecal contrast material, however. BRAIN: The visualized portion of the brain is unremarkable. SINUSES: The visualized paranasal sinuses, mastoid air cells and middle ear cavities are unremarkable. LUNG APICES: There is scarring at the right lung apex. SOFT TISSUES: Endotracheal and orogastric tubes are seen in place. A portion of a left subclavian central venous catheter is also noted. There is calcification of the internal carotid arteries. CT/CT cervical spine wo IV con IMPRESSION: No evidence of fracture or malalignment of the cervical spine. Electronically signed by: Boaz Del Rosario MD 11/25/2024 12:40 PM EDT
--- NOTE | ~2024-11-25 | CT_ITS ---
EXAMINATION: CT HEAD WITHOUT IV CONTRAST HISTORY: ams. TECHNIQUE: Unenhanced helical CT of the head was performed per standard departmental protocol. Coronal and sagittal reformats of the head were also evaluated. One or more of the following techniques was used for dose reduction: Automated exposure control, adjustment of the mA and/or kV according to patient size, use of iterative reconstruction technique. DLP: 628.7 mGy-cm COMPARISON: There are no prior studies available for comparison. FINDINGS: BRAIN: There is diffuse prominence of the ventricular system and cortical sulci, consistent with atrophy. Periventricular and subcortical white matter hypodensities are noted which are nonspecific, but often seen in the setting of small vessel ischemic disease. There is a cavum septum pellucidum and cavum septum vergae, both normal variants. There is no mass effect or midline shift. No intra- or extra-axial fluid collections are identified. SINUSES: There is fluid in the left maxillary sinus. The mastoid air cells and middle ear cavities are well pneumatized. ORBITS: The visualized orbits are unremarkable. BONES/SOFT TISSUES: The extracranial soft tissues are unremarkable. The calvarium is intact. No suspicious lytic or sclerotic lesions. CT/CT head/brain wo IV con IMPRESSION: 1. No acute intracranial abnormality. 2. Fluid in the left maxillary sinus. Electronically signed by: Boaz Del Rosario MD 11/25/2024 12:35 PM EDT
--- NOTE | ~2024-11-25 | XR_ITS ---
EXAMINATION: XR CHEST CLINICAL INFORMATION: ETT and OGT placement COMPARISON: Earlier same day at 9:35 AM. TECHNIQUE: Frontal view of the chest was obtained. FINDINGS: Endotracheal tube, orogastric tube, and left subclavian central line dialysis catheter all remain in good position. Defibrillator pads overlying the left heart border and left base. Elevated right hemidiaphragm, unchanged. Stable cardiac, hilar, and mediastinal contours. Aortic mural calcifications. No pneumothorax. Stable mild interstitial pulmonary edema. Atelectasis left base. Scarring right upper lobe. No definite effusion. No soft tissue or acute osseous abnormality. XR/XR chest 1V IMPRESSION: 1. Lines and tubes in good position as detailed. 2. Mild cardiac enlargement with mild interstitial pulmonary edema, unchanged. 3. Left basilar atelectasis versus pneumonia. 4. No definite pneumothorax. Electronically signed by: Jose Connors MD 11/25/2024 04:52 PM EDT
--- NOTE | ~2024-11-25 | XR_ITS ---
EXAMINATION: XR CHEST CLINICAL INFORMATION: ET tube confirmation COMPARISON: CT chest 03/21/2024. TECHNIQUE: Frontal view of the chest was obtained. FINDINGS: Endotracheal tube is present approximately 5 cm above the vicky. Enteric tube extends into the stomach. The sidehole is at the GE junction. This could be advanced slightly for optimal positioning. Left internal jugular central venous catheter in place, tip in the right atrium. Pacer pad is noted overlying the right hemithorax. Elevated right hemidiaphragm. There is mild cardiac enlargement. Mediastinal and hilar contours appear normal. Aortic mural calcification. The lungs appear clear bilaterally. No pneumothorax or effusion. No focal osseous or soft tissue abnormality. Diffuse osteopenia, degenerative changes throughout the spine. XR/XR chest 1V IMPRESSION: 1. Lines and tubes as detailed. The enteric tube could be advanced slightly. 2. Elevated right hemidiaphragm. 3. Mild cardiac enlargement. 4. Clear lungs without pneumothorax or effusion. Electronically signed by: Jose Connors MD 11/25/2024 09:45 AM EDT
--- NOTE | ~2024-11-25 | CT_ITS ---
EXAMINATION: CT ABDOMEN AND PELVIS WITHOUT CONTRAST CLINICAL INFORMATION: Bleeding in diapers. COMPARISON: None available. TECHNIQUE: Multidetector volumetric imaging was performed from the superior aspect of the liver through the pubic symphysis. Sagittal and coronal reformatted images were obtained on the technologist's workstation. This CT examination was performed using dose optimization techniques as appropriate, variously including the following: *Automated exposure control *Adjustment of mA and/or kV according to patient size (this includes techniques or standardized protocols for targeted exams where dose is matched to indication/reason for exam; i.e. extremities or head) *Use of iterative reconstruction technique FINDINGS: LUNG BASES: Lung bases demonstrate left lower scarring and mild bronchiectasis. There is no effusion. There is mild cardiac enlargement. There is a small pericardial effusion. There is heavy coronary calcification. LIVER, GALLBLADDER, AND BILIARY TREE: The unenhanced liver is normal in size, shape, and attenuation. No focal hepatic lesion or biliary ductal dilatation is present. The gallbladder demonstrates layering gallstones. There is minimal pericholecystic fat haziness. PANCREAS: Unremarkable. SPLEEN: Unremarkable. ADRENAL GLANDS: Unremarkable. KIDNEYS AND URETERS: The kidneys are normal in size, shape, and attenuation. No hydronephrosis, hydroureter, or calculi seen. No perinephric stranding. BLADDER: Mildly distended. Internal hyperattenuating contents measuring Hounsfield units of 58. This may be hemorrhage. There is a Lopez catheter balloon within the lumen of the urinary bladder. GASTROINTESTINAL TRACT: There is moderate constipation present. Stool is seen throughout the colon and rectum. A stool ball in the rectum is present with diameter of 6.8 cm. No obvious hemorrhage from the GI tract. There are a few scattered diverticula present. An NG tube is present within the gastric fundus. The stomach is otherwise normal. The small bowel is normal in caliber and course. A normal appendix is visualized. ABDOMINAL WALL: No significant hernia is appreciated. LYMPH NODES: Normal. VASCULAR: No aneurysm. Heavy atheromatous calcification of the aorta and iliac arteries. PELVIC VISCERA: The uterus and adnexa are unremarkable. There is a pessary device within the vagina. OSSEOUS STRUCTURES: Osteopenia. Degenerative changes throughout the spine and bilateral hip joints. No acute bony abnormality. CT/CT abdomen pelvis wo IV con IMPRESSION: 1. Hyperattenuating material within the urinary bladder, likely hemorrhage (as opposed to contrast from an outside prior study). Lopez present intraluminally. Correlate with Lopez contents. 2. Moderate constipation with a moderate-sized stool ball within the rectum. No inflammation of the colon or rectum. No hemorrhage of the GI tract noted. 3. Cholelithiasis. Mild haziness abutting the gallbladder fossa. Further evaluation recommended if there is concern for acute cholecystitis. 4. NG tube within the stomach. 5. Additional ancillary findings as discussed. Electronically signed by: Jose Connors MD 11/25/2024 12:29 PM EDT
--- NOTE | 2024-11-25 09:15 | ECG_ITS ---
Test Reason : AMS Blood Pressure : */* mmHG Vent. Rate : 120 BPM Atrial Rate : * BPM P-R Int : * ms QRS Dur : 120 ms QT Int : 368 ms P-R-T Axes : * -3 33 degrees QTcB Int : 520 ms Normal sinus rhythm with Atrial tachycardia Right bundle branch block Abnormal ECG No previous ECGs available Referred By: Ruby Roca Electronically Signed By: BAR MONTES DE OCA MD
--- NOTE | 2024-11-25 09:36 | PC.RT ---
RT called STAT to ER. Upon arrival, EMS had pt still on stretcher with compressions in progress. Pt was transferred to ER bed and CPR continued and ambu bag ventilation started by RT. Second RT prepped for intubation. Pt was intubated with a 7.5 ETT 23cm@lip. Confirmed with auscultation, positive colormetric, and ETCO2 monitoring. Pt had no resistance with ventilation. CPR continued and pt was treated with ACLS level care by ER providers. Once ROSC was obtained, pt was placed on mechanical ventilation as documented. Pt currently tolerating settings well, pt is sedated with propofol. Will continue to monitor.
[2024-11-25 09:40] LABS: Glucose, Whole Blood 428 mg/dL (60-115)
[2024-11-25 09:44] LABS: Mean Corpuscular HGB Conc 30.2 g/dl (31.0-35.0); Mean Corpuscular Hemoglobin 33.2 pg (27.0-33.0); Mean Corpuscular Volume 109.8 fL (80.0-98.0); Mean Platelet Volume 11.3 fL (9.4-12.3); NRBC Pct Auto 0.5 /100WBC (0.0-0.2); Platelet Count 100 X10*3/uL (160-400); Red Blood Count 1.84 X10*6/uL (4.20-5.50); Red Cell Distribution Width 14.8 % (11.0-16.0); White Blood Count 9.9 X10*3/uL (4.8-10.8)
--- NOTE | 2024-11-25 09:44 | ED_ITS ---
HPI - Altered Mental Status General Chief Complaint: Cardiac Arrest/CPR Stated Complaint: LOW BP,AMS Time Seen by Provider: 11/25/24 09:08 History of Present Illness HPI narrative: Patient is an 79-year-old female with a history of diabetes. History of DVT. Currently on Eliquis. History of end-stage renal disease. Normally gets dialyzed on Thursday. Patient got dialysis this morning. Was noted to have increasing weakness generalized malaise. On the way to the hospital patient arrested. Was sent to the ED for further evaluation Related Data Home Medications ?Medication ?Instructions ?Recorded ?Confirmed Lactobacillus acidophilus 100 mg PO BID 11/25/24 11/25/24 (Acidophilus capsule) acetaminophen 325 mg tablet 650 mg PO Q6H PRN Fever Or Pain 11/25/24 11/25/24 albuterol sulfate 2.5 mg/3 mL 2.5 mg inhalation Q4H PRN 11/25/24 11/25/24 (0.083 %) solution for nebulization Shortness Of Breath Or Wheezing apixaban 5 mg tablet (Eliquis) 5 mg PO BID 11/25/24 11/25/24 bisacodyl 10 mg rectal suppository 10 mg IL DAILY PRN Constipation 11/25/24 11/25/24 (Dulcolax (bisacodyl)) calcium carbonate 600 mg PO DAILY 11/25/24 11/25/24 carboxymethylcellulose sodium 0.5 2 drp ophthalmic (eye) BID 11/25/24 11/25/24 % eye drops (Refresh Tears) carvedilol 3.125 mg tablet 6.25 mg PO BID 11/25/24 11/25/24 cetirizine 10 mg tablet 10 mg PO DAILY 11/25/24 11/25/24 cholecalciferol (vitamin D3) 50 50 mcg PO DAILY 11/25/24 11/25/24 mcg (2,000 unit) tablet (Vitamin D3) dextrose 40 % oral gel (Glucose 15 g PO Q15M PRN sugar less then 60 11/25/24 11/25/24 Gel) ferrous sulfate 325 mg (65 mg 325 mg PO BID 11/25/24 11/25/24 iron) tablet glucagon 3 mg/actuation nasal 3 mg intranasal DIRECTED PRN 11/25/24 11/25/24 spray (Baqsimi) sugar less then 60 glucagon HCl 1 mg solution for 1 mg subcut Q20M PRN sugars less 11/25/24 11/25/24 injection (Glucagon (HCl) then 60 Emergency Kit) guaifenesin 200 mg/5 mL oral liquid 400 mg PO Q4H PRN Cough 11/25/24 11/25/24 insulin glargine 100 unit/mL (3 15 unit subcut DAILY 11/25/24 11/25/24 mL) subcutaneous pen insulin lispro 100 unit/mL 3 unit subcut TID 11/25/24 11/25/24 subcutaneous pen insulin lispro 100 unit/mL See Protocol subcut QID 11/25/24 11/25/24 subcutaneous pen (Humalog KwikPen (U-100) Insulin) ondansetron HCl 4 mg tablet 4 mg PO Q6H PRN Nausea And Vomiting 11/25/24 11/25/24 pantoprazole 40 mg tablet,delayed 40 mg PO DAILY 11/25/24 11/25/24 release polyethylene glycol 3350 17 17 g PO DAILY PRN Constipation 11/25/24 11/25/24 gram/dose oral powder (Miralax) prednisone 20 mg tablet 60 mg PO DAILY 11/25/24 11/25/24 simvastatin 20 mg tablet 20 mg PO BEDTIME 11/25/24 11/25/24 thiamine HCl (vitamin B1) 100 mg 100 mg PO DAILY 11/25/24 11/25/24 tablet vitamin B complex-vitamin C-folic 1 tab PO DAILY 11/25/24 11/25/24 acid 0.8 mg tablet (Nephro-Chris) Allergies Allergy/AdvReac Type Severity Reaction Status Date / Time Unable to Assess Allergy Unverified 11/25/24 09:14 Review of Systems 2 Review of Systems: Unable to obtain review of systems secondary to patient's condition [facility] Past Medical History [facility] Narrative: Aware patient has a history of end-stage renal disease and received dialysis this morning. EMS noted patient has a sugar of 400 Family stated patient has a history of diabetes. History of DVT patient is on Eliquis. ( obtained through patient's family and through medical records from [facility]) Social History Social History Household Members: Unknown / Unable to assess Patient Tobacco Use Status: Tobacco use Unknown Advance Directives: No Advance Directives Information Provided: No Patient : No Physical Exam ED Vital Signs: Vital Signs - 24 hr 11/25/24 09:19 11/25/24 10:24 11/25/24 10:25 Pulse Rate 134 H Respiratory Rate 26 H Fraction of Inspired Oxygen 100 21 Appearance: CPR in progress pale Eyes: Pupil fixed. ENT: Pharynx normal. Neck: Normal inspection. Neck supple. No lymph nodes noted. No crepitus CVS: CPR in progress Respiratory: Positive breath sounds bilaterally after intubation Abdomen: Soft nontender nondistended Skin: Cyanotic Extremities: No lower extremity edema. Neurovascular intact to all extremities. No Lacerations. No Rash Neuro: CPR in progress Medications Administered Generic Name Dose Route Start Last Admin Trade Name Freq PRN Reason Stop Dose Admin Propofol 1,000 mg in 100 mls @ 0 mls/hr 11/25/24 11:00 11/25/24 11:14 Diprivan IVCONT 40 mcg/kg/min .Q0M GRISELDA 17.11 mls/hr Administration Protocol Per Protocol Norepinephrine Bitartrate 8 mg in 250 mls @ 0 mls/hr 11/25/24 11:30 11/25/24 11:27 Levophed IVCONT 0.9 mcg/kg/min .Q0M GRISELDA 120.32 mls/hr Titration Protocol Per Protocol Pantoprazole Sodium 40 mg 11/25/24 11:00 11/25/24 11:21 Pantoprazole Sodium 40 Mg/10 Ml Vial IVPUSH 40 mg DAILY@0630 GRISELDA Administration Discontinued Medications Generic Name Dose Route Start Last Admin Trade Name Freq PRN Reason Stop Dose Admin Albuterol Sulfate 7.5 mg/ 10 mg 11/25/24 10:20 11/25/24 10:23 Albuterol Sulfate 2.5 mg INHALE 11/25/24 10:21 10 mg ONCE ONE Administration Prothrombin Complex Concent ( 80 mls @ 480 mls/hr 11/25/24 10:13 11/25/24 11:23 Human) 2,000 unit/ IV IV 11/25/24 10:22 Infused Miscellaneous Supplies .Q10M ONE Infusion Cefepime HCl 2 gm in 50 mls @ 100 mls/hr 11/25/24 10:34 11/25/24 11:24 Maxipime IV 11/25/24 11:03 Infused ONCE ONE Infusion Medical Decision Making Medical Decision Making MDM Narrative: Patient 79 years old presents today with having arrested on the way to the emergency department. Patient's sugar was noted to be 400 on arrival patient was pulseless. CPR was started immediately. Patient was placed on a monitor. An IO was placed. Patient was noted to have a low heart rate. No pulse. Calcium chloride was given as patient has a history of end-stage renal disease. Patient is also given epinephrine atropine. Finally got a pulse back. We did a quick ultrasound at bedside. The bedside ultrasound showed no evidence for pericardial effusion. There is poor contractility. Because of low blood pressure and low heart rate multiple rounds of atropine was given. Patient was started on a norepinephrine drip. It was titrated upward for bradycardia and hypotension. Had a long discussion with patient's son and patient's daughter. For now wants patient to be a full code until they can get in contact with their other brother. Understood that patient is in critical condition. Patient's blood gas showed a pH of 6.9. Will require a bicarb drip. Patient's hemoglobin is 6.1. We obtain the old records from [facility]. Patient had hemoglobin drawn in August. At that time patient's hemoglobin was 8.2. Patient's blood was typed and crossed. There is significant blood noted in her diaper. Patient is is on Eliquis. Kcentra was ordered for Eliquis reversal. Additional blood was ordered. Patient's lab was repeated. My interpretation of patient's initial EKG at 09:18 showed a junctional rhythm heart rate is 30. QRS is tight QTC is short there is no acute ST segment elevation. My interpretation patient's 2nd EKG at 10:09 showed an atrial fibrillation pattern heart rate is proximally 120 there is a partial right bundle branch block. QRS is normal QTC is prolonged at 520 Patient's blood pressure is now approximately 100/60. Blood was ordered. Awaiting transfer to the intensive care unit. Patient's urine appears to be infected. Cultures ordered. Additional antibiotics ordered. Differential Diagnosis Differential Diagnoses: The differential diagnosis associated with the presentation includes GI bleed, cardiac arrest, electrolyte disturbance, metabolic acidosis Admission/Observation Consideration of admission/observation: Escalation of care including admission/observation considered Consult Healthcare Provider Management of the patient was discussed with: Batter Out ([employer]) Lab Data [facility] Lab Attestation statement: I reviewed the patient's lab results. 11/25/24 10:50 11/25/24 10:50 Labs: Lab Results 11/25/24 11/25/24 11/25/24 Range/Units 08:58 09:36 09:41 WBC 9.9 (4.8-10.8) X10*3/uL RBC 1.84 L D (4.20-5.50) X10*6/uL Hgb 6.1 L* D (12.0-16.0) g/dl Hct 20.2 L* D (37.0-47.0) % MCV 109.8 H D (80.0-98.0) fL MCH 33.2 H (27.0-33.0) pg MCHC 30.2 L (31.0-35.0) g/dl RDW 14.8 (11.0-16.0) % Plt Count 100 L (160-400) X10*3/uL MPV 11.3 (9.4-12.3) fL Immature Gran % (Auto) Cancelled Neut % (Auto) Cancelled Lymph % (Auto) Cancelled [place] % (Auto) Cancelled Eos % (Auto) Cancelled Baso % (Auto) Cancelled Lymph # (Auto) Cancelled [place] # (Auto) Cancelled Eos # (Auto) Cancelled Baso # (Auto) Cancelled Abs Immat Gran (auto) Cancelled Absolute Neuts (auto) Cancelled Absolute Nucleated RBC 0.050 H (0.0-0.012) X10*3/uL Nucleated RBC % (auto) 0.5 H (0.0-0.2) /100WBC Neutrophils % (Manual) 73 (45-73) % Band Neutrophils % 7 H (3-5) % Lymphocytes % (Manual) 20 (20-40) % Abs Neuts (Manual) 7.9 (2.0-8.3) X10*3/uL Lymphocytes # (Manual) 2.0 (1.2-4.9) X10*3/uL Nucleated RBCs 1 H (0-0) /100WBC Platelet Estimate DECREASED (NORMAL) Plt Morphology Comment NORMAL RBC Morphology NOTED Macrocytosis 1+ (5-14) /OIF PT 18.4 H (10.9-12.4) SEC INR 1.6 H (0.9-1.1) O2 Saturation % ABG pH at Pt Temp (7.35-7.45) ABG pCO2 at Pt Temp (32-45) mmHg ABG pO2 at Pt Temp (83-108) mmHg ABG HCO3 (22-26) mmol/L ABG Base Excess (Actual) mmol/L VBG pH 6.90 L* (7.32-7.43) VBG pCO2 46 mmHg VBG pO2 71 mmHg VBG HCO3 9 L (22-26) mmol/L VBG O2 Saturation TNP VBG Base Excess -21.2 mmol/L Sodium 138 (135-145) mmol/L Potassium 6.2 H* D (3.3-5.1) mmol/L Chloride 106 (96-108) mmol/L Carbon Dioxide 10 L* D (22-29) mmol/L Anion Gap 28 H (12-20) BUN 49 H (9-16) mg/dL Creatinine 3.04 H (0.5-1.4) mg/dL Estim Creat Clear Calc TNP Estimated GFR 15 POC Glucose 428 H* (60-115) mg/dL Random Glucose 587 H* (60-115) mg/dL Calcium 10.2 D (8.4-10.2) mg/dL Magnesium 2.4 (1.6-2.6) mg/dL Total Bilirubin 0.4 (0.0-1.0) mg/dL AST 2271 H (5-31) U/L ALT 2622 H (0-31) U/L Alkaline Phosphatase 73 (39-117) U/L Total Protein 3.1 L (6.5-8.0) g/dL Albumin 1.9 L (3.5-5.0) g/dL Urine Color Urine Appearance Urine pH (5.0-9.0) Ur Specific [place] (1.005-1.025) Urine Protein (Neg-Trace) mg/dL Urine Glucose (UA) (Negative) mg/dL Urine Ketones (Negative) mg/dL Urine Blood (Negative) Urine Nitrite (Negative) Ur Leukocyte Esterase (Negative) Urine RBC (0-2) /HPF Urine WBC (0-5) /HPF Ur Squamous Epith Cells (0-2) /HPF Urine Bacteria (None Seen) Hyaline Casts (0-2) /LPF 11/25/25 05/30/25 Range/Units 10:13 10:17 WBC (4.8-10.8) X10*3/uL RBC (4.20-5.50) X10*6/uL Hgb (12.0-16.0) g/dl Hct (37.0-47.0) % MCV (80.0-98.0) fL MCH (27.0-33.0) pg MCHC (31.0-35.0) g/dl RDW (11.0-16.0) % Plt Count (160-400) X10*3/uL MPV (9.4-12.3) fL Immature Gran % (Auto) Neut % (Auto) Lymph % (Auto) [place] % (Auto) Eos % (Auto) Baso % (Auto) Lymph # (Auto) [place] # (Auto) Eos # (Auto) Baso # (Auto) Abs Immat Gran (auto) Absolute Neuts (auto) Absolute Nucleated RBC (0.0-0.012) X10*3/uL Nucleated RBC % (auto) (0.0-0.2) /100WBC Neutrophils % (Manual) (45-73) % Band Neutrophils % (3-5) % Lymphocytes % (Manual) (20-40) % Abs Neuts (Manual) (2.0-8.3) X10*3/uL Lymphocytes # (Manual) (1.2-4.9) X10*3/uL Nucleated RBCs (0-0) /100WBC Platelet Estimate (NORMAL) Plt Morphology Comment RBC Morphology Macrocytosis /OIF PT (10.9-12.4) SEC INR (0.9-1.1) O2 Saturation 100.0 % ABG pH at Pt Temp 7.18 L* (7.35-7.45) ABG pCO2 at Pt Temp 20 L* (32-45) mmHg ABG pO2 at Pt Temp 432 H (83-108) mmHg ABG HCO3 8 L (22-26) mmol/L ABG Base Excess (Actual) -18.4 mmol/L VBG pH (7.32-7.43) VBG pCO2 mmHg VBG pO2 mmHg VBG HCO3 (22-26) mmol/L VBG O2 Saturation VBG Base Excess mmol/L Sodium (135-145) mmol/L Potassium (3.3-5.1) mmol/L Chloride (96-108) mmol/L Carbon Dioxide (22-29) mmol/L Anion Gap (12-20) BUN (9-16) mg/dL Creatinine (0.5-1.4) mg/dL Estim Creat Clear Calc Estimated GFR POC Glucose (60-115) mg/dL Random Glucose (60-115) mg/dL Calcium (8.4-10.2) mg/dL Magnesium (1.6-2.6) mg/dL Total Bilirubin (0.0-1.0) mg/dL AST (5-31) U/L ALT (0-31) U/L Alkaline Phosphatase (39-117) U/L Total Protein (6.5-8.0) g/dL Albumin (3.5-5.0) g/dL Urine Color RED Urine Appearance Turbid Urine pH 7.5 (5.0-9.0) Ur Specific [place] 1.015 (1.005-1.025) Urine Protein 300 (3+) H (Neg-Trace) mg/dL Urine Glucose (UA) 250 H (Negative) mg/dL Urine Ketones 40 (Negative) mg/dL Urine Blood Large (3+) H (Negative) Urine Nitrite Positive H (Negative) Ur Leukocyte Esterase Large (3+) H (Negative) Urine RBC >20 H (0-2) /HPF Urine WBC 11-20 H (0-5) /HPF Ur Squamous Epith Cells 0-2 (0-2) /HPF Urine Bacteria 4+ (None Seen) Hyaline Casts 0-2 (0-2) /LPF ABG Data Attestation ABG: I personally reviewed and interpreted this ABG as follows: Interpretation: Significant metabolic acidosis with a pH of 6.9. Low bicarb Independent Interpretation I performed an independent interpretation of an: Plain X-Ray (My interpretation of patient's chest x-ray showed the ET tube to be in good position the OG tube to be in the stomach no gross pneumonia pneumothorax) and Ultrasound (No pericardial effusion noted) Radiology Impression Discussion of test interpretation with radiology: I have reviewed the radiologist's reading. Independent Historian Patient's son and daughter External Record Review External record reviewed: Inpatient record From [facility] Chronic Conditions Patient?s care impacted by: Diabetes and Hypertension End-stage renal disease Procedures Central Line Placement Right Femoral: Time Out Performed: Yes Patient Placed on Monitor/Pulse Ox: Yes MD Prep: mask, gown and gloves Central Line Prep: Chlorhexidine scrub Local Anesthetic: lidocaine 1% Amount of anesthesia used (mL): 3 Ultrasound Used for Placement: No Central Line Lumen Inserted: triple Post Procedure: sutured in place Patient Tolerated Procedure: well Complications: none Intubation Intubation Type:: Endotracheal Tube Insertion Intubation Date:: 11/25/24 Intubation Time:: 10:00 Time out performed: Yes sedative: none Laryngoscope: fiber optic video scope ET Tube Size: 7.5 ET Tube Uncuffed: No Tube Secured Depth (cm): 23 Tube Secured Location: lips Tube Placement Confirmation: visualized tube passing through cords, equal breath sounds bilaterally, no breath sounds over epigastrium and confirmation by capnometry Patient Tolerated Procedure: well Intubation Complications: none Critical Care Time Critical Care Time Critical Care Time: Yes Total Critical Care Time: 90 Attestation: I have personally provided 90 minutes of critical care time exclusive of time spent on separately billable procedures. ?Time includes review of lab data, radiology results, discussion with consultants, and monitoring for potential decompensation. ?Interventions were performed as documented above Discharge Plan Discharge Clinical Impression: Cardiac arrest, Acute respiratory failure Patient Disposition: Admitted As Inpatient Interventions: Admission Worksheet (ED) Last Done: 11/25/24 12:11
[2024-11-25 09:48] LABS: Venous Blood Gas Refer to POC result
[2024-11-25 09:49] LABS: VBG Base Excess -21.2 mmol/L; VBG HCO3 9 mmol/L (22-26); VBG pCO2 46 mmHg; VBG pO2 71 mmHg
[2024-11-25 09:52] LABS: INTERNATIONAL NORM RATIO 1.6 (0.9-1.1); Prothrombin Time 18.4 SEC (10.9-12.4)
[2024-11-25 09:57] LABS: Hematocrit 20.2 % (37.0-47.0); Hemoglobin 6.1 g/dl (12.0-16.0)
[2024-11-25 10:14] LABS: Albumin Level 1.9 g/dL (3.5-5.0); Alkaline Phosphatase 73 U/L (39-117); Anion Gap 28 (12-20); Aspartate Amino Transferase 2271 U/L (5-31); Bilirubin Total 0.4 mg/dL (0.0-1.0); Blood Urea Nitrogen 49 mg/dL (9-16); Calcium 10.2 mg/dL (8.4-10.2); Carbon Dioxide 10 mmol/L (22-29); Chloride 106 mmol/L (96-108); Estimated Glomerular Filt Rate 15; Glucose Random 587 mg/dL (60-115); Magnesium 2.4 mg/dL (1.6-2.6); Potassium 6.2 mmol/L (3.3-5.1); Sodium 138 mmol/L (135-145); Total Protein 3.1 g/dL (6.5-8.0)
[2024-11-25 10:16] LABS: ABG Base Excess -18.4 mmol/L; ABG HCO3 8 mmol/L (22-26); ABG pCO2 20 mmHg (32-45); ABG pH 7.18 (7.35-7.45); ABG pO2 432 mmHg (83-108)
[2024-11-25 10:19] LABS: Alanine Aminotransferase 2622 U/L (0-31)
[2024-11-25] MEDS: Albuterol Sulfate 7.5 MG, Albuterol Sulfate (0.083%) 2.5 MG 10 MG INHALE (10:23)
[2024-11-25 10:25] LABS: Appearance Urine Turbid; Color Urine RED; Glucose Urine UA 250 mg/dL (Negative); Leukocyte Esterase Urine Large (3+) (Negative); Nitrite Urine Positive (Negative); PH 7.5 (5.0-9.0); Specific Gravity - Urine 1.015 (1.005-1.025); UMIC TRIGGER UACC YES; Urine Blood Large (3+) (Negative); Urine Ketones 40 mg/dL (Negative); Urine Protein 300 (3+) mg/dL (Neg-Trace)
--- NOTE | 2024-11-25 10:30 | PC.NURSE ---
pt arrived via [facility] at approx 0855 to room 4 CPR in progress. per EMS, pt from [facility] where EMS was called for AMS and SBP of 60 following completion of her dialysis this morning. pt has a delma-cath to her L chest. CPR initiated [employer] at approx 0850 by EMS. see code blue worksheet for initial care and treatment of pt. ROSC obtained at 0902 however pt remained unstable warranting continued documentation of rescus. sheet. d/c code blue documentation at 0955 when pts vitals became stable, she stopped having prolonged cardiac pasuses. 10:04: HR 96, NSR, 100% AC/VC 26, tidal Vol 390, 100% 5 peep, ET 16, Temp 96.1, BP 104/44 10:14: HR133, 100%, 26 RR, 16 ET, 121/43, 96.1
[2024-11-25 10:35] LABS: Bacteria Urine 4+ (None Seen); Hyaline Casts Urine 0-2 /LPF (0-2); RBC Urine >20 /HPF (0-2); Squamous Epithelial Cell Urine 0-2 /HPF (0-2); UACC Culture Trigger YES
[2024-11-25 10:38] LABS: Band Neutrophils Percent 7 % (3-5); Lymphocytes Percent Manual 20 % (20-40); Neutrophils Absolute Manual 7.9 X10*3/uL (2.0-8.3); Neutrophils Percent Manual 73 % (45-73)
[2024-11-25 10:39] LABS: Nucleated Red Blood Cells 1 /100WBC (0-0)
[2024-11-25 10:40] LABS: Macrocytosis 1+ (5-14) /OIF; Platelet Estimate DECREASED (NORMAL); Platelet Morphology Comment NORMAL; RBC Morphology NOTED
--- OUTSIDE RECORDS SUMMARY | 2024-11-25 10:42 | XMS_ITS | Clinical Summary ---
Author Organization [facility] Address [address] [place] [address] Care Team Providers Care Clothes Presser Name Role Phone GurpreetEloisa Primary Care Provider [phone] Allergies No known active allergies Medications Medication [...] age to complete this topic Care Teams Clothes Presser Relationship Specialty Start Date End Date Eloisa Vázquez DO [address] [place] [address] PCP - General Internal Medicine 04/07/24
[2024-11-25] MEDS: cefEPime HCl/D5W 2 GM/50 ML PIGGYBACK IV (10:50)
[2024-11-25] MEDS: Hum Prothrombin Cplx(PCC)4Fact 2,000 UNIT in Container,Empty 0 ML 480 UNIT IV (10:52)
--- NOTE | 2024-11-25 10:53 | PC.NURSE ---
Addendum entered by Anna Domínguez RN 11/25/24 11:28: 10:52 increase Norepi gtt 0.6 mcg/kg/min MD SALGUERO to make increasments of .1 1104: increase norepi gtt 0.7 mcg/kg/min 11:21 increase norepi gtt 0.8 mcg/kg/min Original Note: 1038: increase norepinephrine gtt to 0.5mcg/kg/min MD SALGUERO, BP 82/33, HR 72, RR26, ET14, 96% 10:52: decrease propofol gtt to 40 mcg/kg/min d/t decreased BP
[2024-11-25 11:01] LABS: MANUAL DIFF FLAG NO
[2024-11-25 11:04] LABS: VBG HCO3 10 mmol/L (22-26); VBG pCO2 31 mmHg; VBG pH 7.12 (7.32-7.43); VBG pO2 62 mmHg
[2024-11-25 11:04] LABS: Venous Blood Gas Refer to POC result
[2024-11-25 11:04] LABS: Basophils Percent Auto 0.2 % (0-2); Eosinophils Percent Auto 0.1 % (0-4); Hematocrit 25.3 % (37.0-47.0); Hemoglobin 8.2 g/dl (12.0-16.0); Imm Gran Pct Auto 4.9 % (0.0-0.4); Lymphocytes Absolute Auto 1.1 X10*3/uL (1.2-4.9); Lymphocytes Percent Auto 13.7 % (20-40); Mean Corpuscular HGB Conc 32.4 g/dl (31.0-35.0); Mean Corpuscular Hemoglobin 33.3 pg (27.0-33.0); Mean Corpuscular Volume 102.8 fL (80.0-98.0); Mean Platelet Volume 11.4 fL (9.4-12.3); Monocytes Absolute Auto 0.2 X10*3/uL (0.1-1.2); NRBC Pct Auto 0.4 /100WBC (0.0-0.2); Neutrophils Absolute Auto 6.5 x10*3/uL (2.0-8.3); Neutrophils Percent Auto 79.1 % (45-73); Platelet Count 123 X10*3/uL (160-400); Red Blood Count 2.46 X10*6/uL (4.20-5.50); Red Cell Distribution Width 14.9 % (11.0-16.0); White Blood Count 8.2 X10*3/uL (4.8-10.8)
--- NOTE | 2024-11-25 11:07 | PC.NURSE ---
started abx prior to blood culture obtainment, DAVILA aware
[2024-11-25] MEDS: propofoL 1,000 MG/100 ML VIAL 17.11 MG IVCONT ×2 (11:14→12:58)
--- NOTE | 2024-11-25 11:15 | PHA.MEDREC ---
Addendum entered by Richard Angel RPh 11/25/24 12:12: MED REC CHECKED BY [facility] Original Note: Pharmacy Consult ? Medication Reconciliation Pharmacy has completed the medication reconciliation. Utilized list from Kana Fernández to confirm med list.
[2024-11-25 11:19] LABS: Fibrinogen 343 MG/DL (259-690); INTERNATIONAL NORM RATIO 1.6 (0.9-1.1); Prothrombin Time 18.1 SEC (10.9-12.4)
[2024-11-25] MEDS: Pantoprazole Sodium 40 MG/10 ML VIAL IVPUSH (11:21)
[2024-11-25] MEDS: Norepinephrine Bitartrate/D5W 8 MG/250 ML PLAST..BAG 106.95 MG IVCONT (11:25)
[2024-11-25 11:27] LABS: Albumin Level 2.5 g/dL (3.5-5.0); Alkaline Phosphatase 125 U/L (39-117); Anion Gap 28 (12-20); Aspartate Amino Transferase 3245 U/L (5-31); Bilirubin Direct 0.3 mg/dL (0.0-0.5); Bilirubin Total 0.6 mg/dL (0.0-1.0); Blood Urea Nitrogen 50 mg/dL (9-16); Calcium 9.9 mg/dL (8.4-10.2); Carbon Dioxide 11 mmol/L (22-29); Chloride 102 mmol/L (96-108); Estimated Glomerular Filt Rate 14; Sodium 135 mmol/L (135-145); Total Protein 4.3 g/dL (6.5-8.0)
[2024-11-25 11:29] LABS: Glucose Random 567 mg/dL (60-115); Potassium 6.1 mmol/L (3.3-5.1)
--- NOTE | 2024-11-25 11:35 | PC.NURSE ---
Received critical lab from [facility]. Potassium 6.1, Glucose 567 labs read back and confirmed. Provider Hugo notified
[2024-11-25 11:38] LABS: Alanine Aminotransferase 3544 U/L (0-31)
--- NOTE | 2024-11-25 11:46 | PM.CCHP ---
History of Present Illness Date of Service: 11/25/24 Chief Complaint: Cardiac arrest 79-year-old lady with past medical history of diabetes mellitus was functionally active until this June when she had a fall and developed CLAUDIA, was admitted at [facility]. 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 Since then she is dialysis dependent through left subclavian PermCath M/W/F, she had DVT in June on Eliquis went to hemodialysis this morning and returned back to her detention when she was found very weak so EMS was called. Upon arrival to the ED patient was in cardio respiratory arrest, CPR was initiated rales was achieved about 10 minutes later. Patient is intubated and placed on ventilator support, posterior ROSC lab suggestive of pH 6.9, metabolic acidosis, potassium 6.1, anemia with hemoglobin 6 point. She also has alia blood per rectum/per vaginal and also per Lopez CT chest abdomen and pelvis did not show any abnormality, CT head negative for any intracranial pathology Review of Systems Review of Systems: Unable to obtain as patient is intubated [facility] Social History Social History Household Members: Unknown / Unable to assess Patient Tobacco Use Status: Tobacco use Unknown Advance Directives: No Advance Directives Information Provided: No Patient : No Meds Allergies Allergy/AdvReac Type Severity Reaction Status Date / Time Unable to Assess Allergy Unverified 11/25/24 09:14 Active Medications: Current Medications Albuterol Sulfate (Albuterol Sulfate (0.083%) 2.5 Mg/3 Ml Vial.Neb) 2.5 mg INHALE RQ4H GRISELDA Propofol (Diprivan) 1,000 mg in 100 mls @ 0 mls/hr IVCONT .Q0M GRISELDA; Protocol Last Admin: 11/25/24 11:14 Dose: 40 mcg/kg/min, 17.11 mls/hr Norepinephrine Bitartrate (Levophed) 8 mg in 250 mls @ 0 mls/hr IVCONT .Q0M GRISELDA; Protocol Last Titration: 11/25/24 11:27 Dose: 0.9 mcg/kg/min, 120.32 mls/hr Pantoprazole Sodium (Pantoprazole Sodium 40 Mg/10 Ml Vial) 40 mg IVPUSH DAILY@0630 GRISELDA Last Admin: 11/25/24 11:21 Dose: 40 mg Home Medications ?Medication ?Instructions ?Recorded ?Confirmed ?Last Taken ?Type Lactobacillus acidophilus 100 mg PO BID 11/25/24 11/25/24 Unknown History (Acidophilus capsule) acetaminophen 325 mg tablet 650 mg PO Q6H PRN Fever Or Pain 11/25/24 11/25/24 Unknown History albuterol sulfate 2.5 mg/3 mL 2.5 mg inhalation Q4H PRN 11/25/24 11/25/24 Unknown History (0.083 %) solution for nebulization Shortness Of Breath Or Wheezing apixaban 5 mg tablet (Eliquis) 5 mg PO BID 11/25/24 11/25/24 Unknown History bisacodyl 10 mg rectal suppository 10 mg [place] DAILY PRN Constipation 11/25/24 11/25/24 Unknown History (Dulcolax (bisacodyl)) calcium carbonate 600 mg PO DAILY 11/25/24 11/25/24 Unknown History carboxymethylcellulose sodium 0.5 2 drp ophthalmic (eye) BID 11/25/24 11/25/24 Unknown History % eye drops (Refresh Tears) carvedilol 3.125 mg tablet 6.25 mg PO BID 11/25/24 11/25/24 Unknown History cetirizine 10 mg tablet 10 mg PO DAILY 11/25/24 11/25/24 Unknown History cholecalciferol (vitamin D3) 50 50 mcg PO DAILY 11/25/24 11/25/24 Unknown History mcg (2,000 unit) tablet (Vitamin D3) dextrose 40 % oral gel (Glucose 15 g PO Q15M PRN sugar less then 60 11/25/24 11/25/24 Unknown History Gel) ferrous sulfate 325 mg (65 mg 325 mg PO BID 11/25/24 11/25/24 Unknown History iron) tablet glucagon 3 mg/actuation nasal 3 mg intranasal DIRECTED PRN 11/25/24 11/25/24 Unknown History spray (Baqsimi) sugar less then 60 glucagon HCl 1 mg solution for 1 mg subcut Q20M PRN sugars less 11/25/24 11/25/24 Unknown History injection (Glucagon (HCl) then 60 Emergency Kit) guaifenesin 200 mg/5 mL oral liquid 400 mg PO Q4H PRN Cough 11/25/24 11/25/24 Unknown History insulin glargine 100 unit/mL (3 15 unit subcut DAILY 11/25/24 11/25/24 Unknown History mL) subcutaneous pen insulin lispro 100 unit/mL 3 unit subcut TID 11/25/24 11/25/24 Unknown History subcutaneous pen insulin lispro 100 unit/mL See Protocol subcut QID 11/25/24 11/25/24 Unknown History subcutaneous pen (Humalog KwikPen (U-100) Insulin) ondansetron HCl 4 mg tablet 4 mg PO Q6H PRN Nausea And Vomiting 11/25/24 11/25/24 Unknown History pantoprazole 40 mg tablet,delayed 40 mg PO DAILY 11/25/24 11/25/24 Unknown History release polyethylene glycol 3350 17 17 g PO DAILY PRN Constipation 11/25/24 11/25/24 Unknown History gram/dose oral powder (Miralax) prednisone 20 mg tablet 60 mg PO DAILY 11/25/24 11/25/24 Unknown History simvastatin 20 mg tablet 20 mg PO BEDTIME 11/25/24 11/25/24 Unknown History thiamine HCl (vitamin B1) 100 mg 100 mg PO DAILY 11/25/24 11/25/24 Unknown History tablet vitamin B complex-vitamin C-folic 1 tab PO DAILY 11/25/24 11/25/24 Unknown History acid 0.8 mg tablet (Nephro-Chris) Physical Exam Vital Signs: Vital Signs: Last Vital Signs Pulse 76 11/25/24 11:27 Resp 26 H 11/25/24 11:14 BP 89/34 L 11/25/24 11:27 Pulse Ox 92 11/25/24 11:14 FiO2 21 11/25/24 10:25 BMI result Body Mass Index 26.2 General: Elderly lady in acute distress, ill appearing and tired appearing Nutritional Appearance: well nourished and overweight Eyes: appearance normal, both eyes and all related structures; Alignment and Position: alignment normal and position normal Neck: No lymphadenopathy, no thyromegaly Resp: bilateral air entry equal, occasional added sounds present Cardio: Regular rate, regular rhythm; Heart sounds: S1 normal heart sound present and S2 normal heart sound present, edema pressor GI: soft, nontender, no guarding, no hepatosplenomegaly : bladder normal to inspection, bladder normal to palpation, no renal angle tenderness Skin: no rashes or lesions noted and elasticity normal Neuro: Moves extremities upon turning off the sedation Results Labs 11/25/24 13:43 11/25/24 10:50 Labs: Laboratory Results - last 24 hr 11/25/24 11/25/24 11/25/24 08:58 09:36 09:41 MCV 109.8 H D MCH 33.2 H MCHC 30.2 L RDW 14.8 Plt Count 100 L MPV 11.3 Immature Gran % (Auto) Cancelled Neut % (Auto) Cancelled Lymph % (Auto) Cancelled [place] % (Auto) Cancelled Eos % (Auto) Cancelled Baso % (Auto) Cancelled Lymph # (Auto) Cancelled [place] # (Auto) Cancelled Eos # (Auto) Cancelled Baso # (Auto) Cancelled Abs Immat Gran (auto) Cancelled Absolute Neuts (auto) Cancelled Absolute Nucleated RBC 0.050 H Nucleated RBC % (auto) 0.5 H Neutrophils % (Manual) 73 Band Neutrophils % 7 H Lymphocytes % (Manual) 20 Abs Neuts (Manual) 7.9 Lymphocytes # (Manual) 2.0 Nucleated RBCs 1 H Platelet Estimate DECREASED Plt Morphology Comment NORMAL RBC Morphology NOTED Macrocytosis 1+ (5-14) PT 18.4 H INR 1.6 H Fibrinogen O2 Saturation ABG pH at Pt Temp ABG pCO2 at Pt Temp ABG pO2 at Pt Temp ABG HCO3 ABG Base Excess (Actual) VBG pH 6.90 L* VBG pCO2 46 VBG pO2 71 VBG HCO3 9 L VBG O2 Saturation TNP VBG Base Excess -21.2 Anion Gap 28 H Estim Creat Clear Calc TNP Estimated GFR 15 POC Glucose 428 H* Random Glucose 587 H* Calcium 10.2 D Magnesium 2.4 Total Bilirubin 0.4 Direct Bilirubin AST 2271 H ALT 2622 H Alkaline Phosphatase 73 Total Protein 3.1 L Albumin 1.9 L Urine Color Urine Appearance Urine pH Ur Specific [place] Urine Protein Urine Glucose (UA) Urine Ketones Urine Blood Urine Nitrite Ur Leukocyte Esterase Urine RBC Urine WBC Ur Squamous Epith Cells Urine Bacteria Hyaline Casts Blood Type Antibody Screen Crossmatch 11/25/24 11/25/24 11/25/24 10:13 10:17 10:50 MCV 102.8 H D MCH 33.3 H MCHC 32.4 RDW 14.9 Plt Count 123 L MPV 11.4 Immature Gran % (Auto) 4.9 H Neut % (Auto) 79.1 H Lymph % (Auto) 13.7 L [place] % (Auto) 2.0 Eos % (Auto) 0.1 Baso % (Auto) 0.2 Lymph # (Auto) 1.1 L [place] # (Auto) 0.2 Eos # (Auto) 0.0 Baso # (Auto) 0.0 Abs Immat Gran (auto) 0.40 H Absolute Neuts (auto) 6.5 Absolute Nucleated RBC 0.030 H Nucleated RBC % (auto) 0.4 H Neutrophils % (Manual) Band Neutrophils % Lymphocytes % (Manual) Abs Neuts (Manual) Lymphocytes # (Manual) Nucleated RBCs Platelet Estimate Plt Morphology Comment RBC Morphology Macrocytosis PT 18.1 H INR 1.6 H Fibrinogen 343 O2 Saturation 100.0 ABG pH at Pt Temp 7.18 L* ABG pCO2 at Pt Temp 20 L* ABG pO2 at Pt Temp 432 H ABG HCO3 8 L ABG Base Excess (Actual) -18.4 VBG pH VBG pCO2 VBG pO2 VBG HCO3 VBG O2 Saturation VBG Base Excess Anion Gap 28 H Estim Creat Clear Calc 14.0 Estimated GFR 14 POC Glucose Random Glucose 567 H* Calcium 9.9 Magnesium Total Bilirubin 0.6 Direct Bilirubin 0.3 AST 3245 H ALT 3544 H Alkaline Phosphatase 125 H Total Protein 4.3 L Albumin 2.5 L Urine Color RED Urine Appearance Turbid Urine pH 7.5 Ur Specific [place] 1.015 Urine Protein 300 (3+) H Urine Glucose (UA) 250 H Urine Ketones 40 Urine Blood Large (3+) H Urine Nitrite Positive H Ur Leukocyte Esterase Large (3+) H Urine RBC >20 H Urine WBC 11-20 H Ur Squamous Epith Cells 0-2 Urine Bacteria 4+ Hyaline Casts 0-2 Blood Type O Positive Antibody Screen NEGATIVE Crossmatch See Detail 11/25/24 10:56 MCV MCH MCHC RDW Plt Count MPV Immature Gran % (Auto) Neut % (Auto) Lymph % (Auto) [place] % (Auto) Eos % (Auto) Baso % (Auto) Lymph # (Auto) [place] # (Auto) Eos # (Auto) Baso # (Auto) Abs Immat Gran (auto) Absolute Neuts (auto) Absolute Nucleated RBC Nucleated RBC % (auto) Neutrophils % (Manual) Band Neutrophils % Lymphocytes % (Manual) Abs Neuts (Manual) Lymphocytes # (Manual) Nucleated RBCs Platelet Estimate Plt Morphology Comment RBC Morphology Macrocytosis PT INR Fibrinogen O2 Saturation ABG pH at Pt Temp ABG pCO2 at Pt Temp ABG pO2 at Pt Temp ABG HCO3 ABG Base Excess (Actual) VBG pH 7.12 L* VBG pCO2 31 VBG pO2 62 VBG HCO3 10 L VBG O2 Saturation 72.0 VBG Base Excess -17.0 Anion Gap Estim Creat Clear Calc Estimated GFR POC Glucose Random Glucose Calcium Magnesium Total Bilirubin Direct Bilirubin AST ALT Alkaline Phosphatase Total Protein Albumin Urine Color Urine Appearance Urine pH Ur Specific [place] Urine Protein Urine Glucose (UA) Urine Ketones Urine Blood Urine Nitrite Ur Leukocyte Esterase Urine RBC Urine WBC Ur Squamous Epith Cells Urine Bacteria Hyaline Casts Blood Type Antibody Screen Crossmatch Imaging Radiologist's Impressions: Impressions Chest X-Ray 11/25/24 09:14 IMPRESSION: 1. Lines and tubes as detailed. The enteric tube could be advanced slightly. 2. Elevated right hemidiaphragm. 3. Mild cardiac enlargement. 4. Clear lungs without pneumothorax or effusion. Electronically signed by: Jose Connors MD 11/25/2024 09:45 AM EDT RP Assessment and Plan (1) Cardiac arrest: Status: Acute (2) Acute respiratory failure: Status: Acute (3) Acute blood loss anemia: Status: Acute (4) ESRD (end stage renal disease): Status: Acute (5) Cardiogenic shock: Status: Acute (6) Lactic acidosis: Status: Acute (7) Acute encephalopathy: Status: Acute Plan Neuro: Acute encephalopathy possibly due to metabolic encephalopathy however possibility of hypoxic ischemic brain injury could not be completely ruled out given multiple episodes of cardiac arrest CT head upon admission did not show any acute intracranial pathology On propofol for sedation, upon tapering which she moves all her extremities Close neurological status monitoring in the ICU every hour Cardiac: Cardiogenic Shock: Possibly secondary to cardiac arrest. On Levophed and vasopressin for vasosupport, titrate Levophed to keep map above 65 mm Hg Cardiac arrest 2 episodes each about 10 minutes long, patient cuba'ed and then went into asystole each time. We will place in transcutaneous pacer. Atrial fibrillation with a RVR: Patient was on epinephrine drip for bradycardia following which currently the patient is in AFib with RVR Can not give amiodarone due to shock liver, can not give digoxin due to ESRD and hyperkalemia Do not want to give beta kindra due to bradycardia We will continue to monitor History of DVT: Anticoagulation withheld due to bleeding Respiratory: Acute hypoxemic respiratory failure due to aspiration Currently on ventilator support On PRVC mode FiO2 40%, PEEP 5, TV 360, RR 20 Peak pressures and plateau pressures are under the curve Ventilator management bundle with head end elevation, aspiration precaution, chlorhexidine mouthwash, daily awakening trials, daily spontaneous breathing trials GI: We will hold off on tube feeds Renal: Had CLAUDIA in June currently dialysis dependent, 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 We will give her high dose of steroids given patient has GPA, high LDH multiple cardiac arrests, failure We will closely monitor I's and O's Avoid nephrotoxic medications Heme: Acute blood loss anemia: Patient has a tube bleeding hard to differentiate between per rectal and for vaginal bleeding, CT abdomen and pelvis normal. Received 1 unit of PRBC transfusion this afternoon, we will transfuse more if needed to keep hemoglobin above 7 Endocrine: Blood sugars not under control Started the patient on insulin drip for blood sugar control Sliding scale insulin as needed Infectious disease: We will send pancultures On empiric Zosyn Musculoskeletal: Decubitus ulcer prevention protocol Lines: Right femoral triple-lumen catheter placed by ED Left femoral arterial line Prophylaxis: SCD, pantoprazole Patient is critically ill with multiple cardiac arrest, cardiogenic shock on multiple pressors, respiratory failure on ventilator support, acute encephalopathy, acute kidney injury, acute blood loss anemia. Critical care time spent is about 90 minutes on ventilator management, sedation management, close hemodynamic monitoring, management of episodes of cardiac arrest, vasopressor management, management of hyperglycemia, management of acute blood loss anemia, blood transfusions, chart review, review of labs and images and this time is excluding any procedural time
--- NOTE | 2024-11-25 12:15 | PC.NURSE ---
transported pt from ED4 to CT for full scan then to ICU 261 without incident. Report given to Neri HAZEL. Propofol running at 40mcg/kg/min, Norepinephrine gtt running at 0.9 mcg/kg/min
[2024-11-25 12:20] LABS: Glucose, Whole Blood 409 mg/dL (60-115)
[2024-11-25] MEDS: Albuterol Sulfate (0.083%) 2.5 MG/3 ML VIAL.NEB INHALE ×3 (12:25→20:28)
[2024-11-25 12:42] LABS: Beta-Hydroxybutyrate 0.88 mmol/L (0.02-0.27)
[2024-11-25 12:44] LABS: Lactic Acid 11.9 mmol/L (0.5-2.0)
[2024-11-25 12:49] LABS: Ammonia 118 umol/L (13-55)
[2024-11-25 12:51] LABS: Lactate Dehydrogenase 6697 U/L (122-220)
[2024-11-25] MEDS: Norepinephrine Bitartrate/D5W 8 MG/250 ML PLAST..BAG 125.67 MG IVCONT (13:06)
--- NOTE | 2024-11-25 13:27 | PC.NURSE ---
Addendum entered by Neri Mccullough RN 11/25/24 18:47: pt arrived to unit from ER with marcelo in place. 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 informed and md assessed at bedside. dressing change w/ quickclot performed Addendum entered by Neri Mccullough RN 11/25/24 18:23: md was informed of pt's ETT placement and what was received upon report from ER. repeat CXR was obtained. RT moved ETT from 23 @ lip to 22 @ lip per verbal order Addendum entered by Neri Mccullough RN 11/25/24 18:21: MD was informed of ECG results which showed conversion to afib RVR from sinus. clots noted in pt's marcelo. marcelo was irrigated per verbal order while at bedside. pt was bladder scanned for 7ml. margarita hugger was started per verbal order d/t hypothermia Addendum entered by Neri Mccullough RN 11/25/24 18:13: approx 1402: ref code sheet - off levo per and started epi. 1404 ref code sheet: ABGs obtained MD informed of abnormal and critical labs, vitals and rhythm changes throughout the shift. Addendum entered by Neri Mccullough RN 11/25/24 18:11: ref code sheet: L fem A line placed by MD at 1350 w/ + waveform and correlating BP to cuff pressure. bp 141/78, HR 108, O2 100% Original Note: pt arrived from ER post CT with prop at 40 and levo at 0.9. per hold off on administering 1u RBC. informed of critical labs and POC upon arrival. dressing change performed for central line and R peripheral IV. Marcelo irrigated d/t clots. informed and assessed at bedside. pt's son and daughter at bedside, spoke with MD.
[2024-11-25] MEDS: Calcium Chloride 1 GM/10 ML SYRINGE IVPUSH (13:35)
[2024-11-25] MEDS: EPINEPHrine 1 MG/10 ML SYRINGE IVPUSH (13:35)
[2024-11-25] MEDS: Sodium Bicarbonate 8.4% 50 MEQ/50 ML SYRINGE 150 MEQ IVPUSH (13:36)
[2024-11-25] MEDS: Insulin Regular, Human 100 UNIT/ML 10 ML VIAL 10 UNIT IVPUSH (13:37)
[2024-11-25 13:40] LABS: Glucose, Whole Blood 506 mg/dL (60-115)
[2024-11-25] MEDS: EPINEPHrine 5 MG in Dextrose 5 % 250 ML 43.64 MG IVCONT (13:40)
[2024-11-25] MEDS: Sodium Bicarbonate 8.4% 150 MEQ in Dextrose 5 % 850 ML 999 MEQ IV (13:59)
[2024-11-25 14:05] LABS: Mean Corpuscular HGB Conc 33.2 g/dl (31.0-35.0); Mean Corpuscular Hemoglobin 33.5 pg (27.0-33.0); NRBC Pct Auto 0.7 /100WBC (0.0-0.2); Red Blood Count 1.91 X10*6/uL (4.20-5.50); White Blood Count 8.6 X10*3/uL (4.8-10.8)
[2024-11-25 14:06] LABS: ABG HCO3 13 mmol/L (22-26); ABG pCO2 21 mmHg (32-45); ABG pH 7.39 (7.35-7.45); ABG pO2 242 mmHg (83-108)
[2024-11-25 14:09] LABS: Platelet Count 98 X10*3/uL (160-400)
[2024-11-25 14:10] LABS: Haptoglobin 203 mg/dL (63-273)
--- NOTE | 2024-11-25 14:10 | CA_ITS ---
Transthoracic Echocardiogram Patient (Last, First, Middle): Ana Contreras, Gender: Female Date of : 1945 Age: 79 Procedure Date: 11/25/2024 Procedure Type: Transthoracic Echocardiogram Location: ICU Height: 165.1 cm Weight: 71.22 kg BSA: 1.78 m2 Heart Rate: bpm BP: 92 / 46 mmHg Stna: TO Referring MD: Clark Arias MD Drum Puller: Teo Bucio MD Symptoms: cardiac arrest Study Quality: Technically Difficult/Contrast ECG Rhythm: Atrial tachycardia Conclusions: - 1. Low normal LV ejection fraction of 50-55% with moderate asymmetric septal hypertrophy and mild concentric global hypertrophy 2. Cardiac valvular was within normal limits 3. No gross pericardial effusion Findings Procedure Information Contrast agent, definity, is being given per protocol without apparent complications. The study quality is limited by the presence of a ventilator. Left Ventricle Normal left ventricular cavity size. There is mildly increased left ventricular wall thickness. The left ventricular systolic function is low normal. The visually estimated ejection fraction is between 50-55%. Diastolic function is indeterminate on the basis of available data. There is moderate septal asymmetric hypertrophy. Right Ventricle Normal right ventricular cavity size. Atria The left atrium is likely dilated. There is lipomatous hypertrophy of the interatrial septum. There is no evidence of interatrial shunt. The right atrium was not well visualized. Aortic Valve The aortic valve was not well visualized. There is no aortic valve stenosis. There is no aortic valve regurgitation. Mitral Valve There is mild anterior and moderate posterior mitral leaflet thickening. There is moderate mitral annular calcification. There is no mitral valve regurgitation. There is no mitral valve stenosis. Pulmonic Valve The pulmonic valve was not well visualized. Tricuspid Valve The tricuspid valve was not well visualized. Tricuspid regurgitation envelope is inadequate for calculation of right ventricular systolic pressure. Indeterminate right atrial pressure. Great Vessels All visible segments of the aorta are normal in size. The pulmonary artery was not well visualized. Venous The inferior vena cava is mildly dilated. Pericardium/Pleural There is no evidence of pericardial effusion. Prior Study Comparison No prior study available for comparison. Measurements 2D Linear Measurements IVSd: 1.62 0.6-0.9/0.6-1.0 cm LVIDd: 3.25 3.9-5.3/4.2-5.9 cm LVIDd Index: 1.83 2.4-3.2/2.2-3.1 cm/m2 LVIDs: 2.77 2.0-3.6 cm LVPWd: 1.13 0.7-1.1 cm LV Mass: 188.94 67-162/88-224 g LV Mass Index: 106.15 43-95/49-115 g/m2 LVOT Diam: 2.20 3.0+(-)1.3 cm 2D Systolic Function EF 4C: 43.40 >55% Mitral Valve MV Pk E: 1.02 MV Decel Time: 76.00 E'Lateral: 12.30 E'Medial: 6.86 E/E' Med: 14.90 E/E' Lat: 8.30 PHT: 23.00 MVA PHT: 9.57 Decel [place]linger: 13.50 LVOT LVOT Pk [place]: 1.09 LVOT Mn [place]: 0.54 LVOT VTI: 0.08 LVOT Pk Grad: 5.00 LVOT Mn Grad: 2.00 LVOT Diam: 2.20 LVOT Area: 3.80 Diastolic Function MV Pk E: 1.02 E'Medial: 6.86 E/E' Med: 14.90 E' Laterial: 12.30 E/E' Lat: 8.30 Right Ventricle TAPSE (mm): 14.00 TVS' [place]: 16.60 Tricuspid Valve RA Press: 15.00 Great Vessels Aorta Sinus of Valsalva: 4.09 2.0-3.5 cm Ao Asc: 3.40 2.1-3.4 cm Updated in Other Vendor System with Status of Final Teo Bucio MD electronically signed on 11/26/2024 10:43:01 AM with status of Final
[2024-11-25 14:11] LABS: Hemoglobin 6.4 g/dl (12.0-16.0)
[2024-11-25 14:12] LABS: Hematocrit 19.3 % (37.0-47.0)
[2024-11-25 14:15] LABS: SLIDE REVIEW MANUAL DIFF
[2024-11-25 14:18] LABS: Troponin-I High Sensitivity 719.7 ng/L (<3.5-17.0)
[2024-11-25 14:20] LABS: Reflex Lactate? Lactic Acid Added
[2024-11-25] MEDS: Insulin Regular/NS 100 UNIT/100 ML PLAST..BAG 8 UNIT IVCONT (14:20)
--- NOTE | 2024-11-25 14:32 | ECG_ITS ---
Test Reason : dysrhythmia Blood Pressure : */* mmHG Vent. Rate : 113 BPM Atrial Rate : * BPM P-R Int : * ms QRS Dur : 114 ms QT Int : 348 ms P-R-T Axes : * -18 61 degrees QTcB Int : 477 ms Normal sinus rhythm with Atrial tachycardia with Premature ventricular complexes Right bundle branch block Minimal voltage criteria for LVH, may be normal variant ( R in aVL ) Nonspecific ST abnormality Abnormal ECG When compared with ECG of 25-Nov-2024 10:09, No significant change was found Referred By: Clark Arias Electronically Signed By: BAR MONTES DE OCA MD
[2024-11-25 14:34] LABS: Band Neutrophils Percent 7 % (3-5); Lymphocytes Absolute Manual 1.5 X10*3/uL (1.2-4.9); Lymphocytes Percent Manual 17 % (20-40); Monocytes Absolute Manual 0.1 X10*3/uL (0.1-1.2); Monocytes Percent Manual 1 % (2-11); Neutrophils Absolute Manual 7.1 X10*3/uL (2.0-8.3); Neutrophils Percent Manual 75 % (45-73)
[2024-11-25 14:37] LABS: Macrocytosis 1+ (5-14) /OIF; RBC Morphology NOTED
[2024-11-25 14:38] LABS: Platelet Estimate DECREASED (NORMAL); Platelet Morphology Comment NORMAL; Schistocytes 1+ (0-2) /OIF
[2024-11-25 15:04] LABS: Glucose, Whole Blood 510 mg/dL (60-115)
[2024-11-25] MEDS: Norepinephrine Bitartrate/D5W 8 MG/250 ML PLAST..BAG 93.58 MG IVCONT (15:09)
[2024-11-25 16:16] LABS: Glucose, Whole Blood 451 mg/dL (60-115)
[2024-11-25] MEDS: Vasopressin 20 UNIT/100 ML INFUS..BTL 12 UNIT IVCONT ×2 (16:30→22:04)
[2024-11-25 16:54] LABS: Reflex Lactate? 2 Y
--- NOTE | 2024-11-25 17:08 | W.PM.CCHP ---
Procedures Date of Service Date of Service: 11/25/24 Arterial Line Consent: Emergent-no informed consent obtained Sterile Technique Used: Yes Time out performed: Yes Size (Gauge): 16 Technique used: modified Seldinger technique Post-Procedure: line sutured into place and dry sterile dressing placed Patient tolerated procedure: well and no complications Site: left and femoral
[2024-11-25] MEDS: Norepinephrine Bitartrate/D5W 8 MG/250 ML PLAST..BAG 133.69 MG IVCONT (17:16)
[2024-11-25 17:25] LABS: Glucose, Whole Blood 424 mg/dL (60-115)
[2024-11-25 17:54] LABS: ~Lactic Acid-LAB USE ONLY 18.2 mmol/L (0.5-2.0)
[2024-11-25] MEDS: Piperacillin Sodium/Tazobactam 2.25 GM in 0.9 % Sodium Chloride 50 ML IV (17:57)
[2024-11-25 18:10] LABS: Glucose, Whole Blood 400 mg/dL (60-115)
[2024-11-25 19:04] LABS: Glucose, Whole Blood 372 mg/dL (60-115)
[2024-11-25] MEDS: Norepinephrine Bitartrate/D5W 8 MG/250 ML PLAST..BAG 88.23 MG IVCONT (19:04)
[2024-11-25] MEDS: Insulin Regular/NS 100 UNIT/100 ML PLAST..BAG 18 UNIT IVCONT (19:13)
[2024-11-25 19:59] LABS: Glucose, Whole Blood 313 mg/dL (60-115)
[2024-11-25 20:18] LABS: ABG Base Excess -16.6 mmol/L; ABG HCO3 7 mmol/L (22-26); ABG pCO2 14 mmHg (32-45); ABG pH 7.29 (7.35-7.45); ABG pO2 175 mmHg (83-108)
[2024-11-25 20:24] LABS: Hematocrit 30.6 % (37.0-47.0); Hemoglobin 10.7 g/dl (12.0-16.0); Mean Corpuscular Volume 94.4 fL (80.0-98.0); Mean Platelet Volume 10.9 fL (9.4-12.3); NRBC Pct Auto 0.4 /100WBC (0.0-0.2); Red Blood Count 3.24 X10*6/uL (4.20-5.50); White Blood Count 16.6 X10*3/uL (4.8-10.8)
[2024-11-25 20:42] LABS: Platelet Count 96 X10*3/uL (160-400)
[2024-11-25 20:50] LABS: Albumin Level 2.2 g/dL (3.5-5.0); Anion Gap 32 (12-20); Blood Urea Nitrogen 55 mg/dL (9-16); Calcium 8.7 mg/dL (8.4-10.2); Carbon Dioxide 8 mmol/L (22-29); Chloride 102 mmol/L (96-108); Creatinine Clr Calc Pharmacy 13.1; Estimated Glomerular Filt Rate 13; Glucose Random 288 mg/dL (60-115); Magnesium 2.1 mg/dL (1.6-2.6); Phosphorus 7.9 mg/dL (2.7-4.5); Potassium 4.5 mmol/L (3.3-5.1); Sodium 137 mmol/L (135-145)
[2024-11-25 20:56] LABS: Atypical Lymph Absolute Manual 0.3 x10*3/uL; Atypical Lymphs Percent Manual 2 % (0-6); Band Neutrophils Percent 19 % (3-5); Lymphocytes Absolute Manual 0.7 X10*3/uL (1.2-4.9); Lymphocytes Percent Manual 4 % (20-40); Metamyelocytes Absolute 0.3 X10*3/uL; Metamyelocytes Percent 2 %; Monocytes Absolute Manual 0.3 X10*3/uL (0.1-1.2); Monocytes Percent Manual 2 % (2-11); Myelocytes Absolute 0.2 X10*/uL; Myelocytes Percent 1 %; Neutrophils Absolute Manual 14.8 X10*3/uL (2.0-8.3); Neutrophils Percent Manual 70 % (45-73)
[2024-11-25 20:57] LABS: Large Platelet PRESENT; Platelet Estimate SLIGHTLY DECREASED (NORMAL); Platelet Morphology Comment NORMAL; RBC Morphology NOTED
[2024-11-25 20:58] LABS: Burr Cells 2+ (3-5) /OIF; Ovalocytes 1+ (5-14) /OIF; Schistocytes 1+ (0-2) /OIF; Tear Drop Cells 1+ (0-2) /OIF
[2024-11-25 20:59] LABS: Dohle Bodies PRESENT; Macrocytosis 1+ (5-14) /OIF; Toxic Vacuolation PRESENT
[2024-11-25 21:00] LABS: Glucose, Whole Blood 274 mg/dL (60-115)
[2024-11-25] MEDS: Albumin Human 25 % 100 ML 133.33 ML IV ×2 (21:18→22:18)
[2024-11-25] MEDS: Sodium Bicarbonate 8.4% 50 MEQ/50 ML SYRINGE IVPUSH ×3 (21:18→23:48)
[2024-11-25] MEDS: propofoL 1,000 MG/100 ML VIAL 4.28 MG IVCONT (21:34)
[2024-11-25] MEDS: Norepinephrine Bitartrate/NS 16 MG/250 ML PLAST..BAG 44.12 MG IVCONT (21:37)
[2024-11-25 22:07] LABS: Glucose, Whole Blood 205 mg/dL (60-115)
[2024-11-25 23:10] LABS: Glucose, Whole Blood 155 mg/dL (60-115)
[2024-11-26] VITALS (22 sets, daily range): BP systolic 0–225; BP diastolic 0–63; PULSE 0–122; RESP 26; TEMP 35–39; O2SAT 93–100; BMI 24.5
[2024-11-26 00:05] LABS: Glucose, Whole Blood 108 mg/dL (60-115)
[2024-11-26 01:07] LABS: Glucose, Whole Blood 106 mg/dL (60-115)
[2024-11-26] MEDS: Piperacillin Sodium/Tazobactam 2.25 GM in 0.9 % Sodium Chloride 50 ML IV (02:17)
[2024-11-26 03:09] LABS: Glucose, Whole Blood 158 mg/dL (60-115)
[2024-11-26] MEDS: Vasopressin 20 UNIT/100 ML INFUS..BTL 12 UNIT IVCONT (03:49)
[2024-11-26] MEDS: propofoL 1,000 MG/100 ML VIAL 12.83 MG IVCONT (05:12)
[2024-11-26 05:52] LABS: ABG Base Excess -1.2 mmol/L; ABG HCO3 20 mmol/L (22-26); ABG pCO2 24 mmHg (32-45); ABG pH 7.53 (7.35-7.45); ABG pO2 184 mmHg (83-108)
[2024-11-26 05:56] LABS: Venous Blood Gas Refer to POC result
[2024-11-26 06:00] LABS: Hematocrit 21.8 % (37.0-47.0); Mean Corpuscular HGB Conc 36.7 g/dl (31.0-35.0); Mean Corpuscular Hemoglobin 33.6 pg (27.0-33.0); Mean Corpuscular Volume 91.6 fL (80.0-98.0); Mean Platelet Volume 11.5 fL (9.4-12.3); Red Blood Count 2.38 X10*6/uL (4.20-5.50); Red Cell Distribution Width 15.6 % (11.0-16.0); White Blood Count 15.6 X10*3/uL (4.8-10.8)
[2024-11-26 06:00] LABS: VBG Base Excess -0.2 mmol/L; VBG HCO3 22 mmol/L (22-26); VBG pCO2 26 mmHg; VBG pH 7.52 (7.32-7.43); VBG pO2 222 mmHg
[2024-11-26 06:02] LABS: Glucose, Whole Blood 137 mg/dL (60-115)
[2024-11-26 06:02] LABS: NRBC Pct Auto 3.5 /100WBC (0.0-0.2); Platelet Count 58 X10*3/uL (160-400)
[2024-11-26 06:34] LABS: INTERNATIONAL NORM RATIO 2.8 (0.9-1.1); Prothrombin Time 32.7 SEC (10.9-12.4)
[2024-11-26 06:37] LABS: Alanine Aminotransferase 3090 U/L (0-31); Albumin Level 2.5 g/dL (3.5-5.0); Alkaline Phosphatase 102 U/L (39-117); Anion Gap 31 (12-20); Aspartate Amino Transferase 4085 U/L (5-31); Bilirubin Total 0.9 mg/dL (0.0-1.0); Blood Urea Nitrogen 63 mg/dL (9-16); Calcium 9.6 mg/dL (8.4-10.2); Carbon Dioxide 19 mmol/L (22-29); Chloride 98 mmol/L (96-108); Estimated Glomerular Filt Rate 12; Glucose Random 217 mg/dL (60-115); Magnesium 1.9 mg/dL (1.6-2.6); Phosphorus 8.2 mg/dL (2.7-4.5); Potassium 5.4 mmol/L (3.3-5.1); Sodium 143 mmol/L (135-145); Total Protein 3.7 g/dL (6.5-8.0)
--- NOTE | 2024-11-26 06:41 | PM.CCN ---
Critical Care Event Note Summary Date of Service: 11/26/24 Code activated: Yes Narrative: This case had a high probability of a clinically significant, sudden, or life threatening deterioration of this patient's condition which required my full and direct attention, intervention and personal management. Critical Care Time (minutes): 30 Comment: Overnight, patient troponin elevated to 3000, EKG with no ST elevations. Unable to start heparin due to bleeding. Not a candidate to transfer to tertiary facility for cardiac catheterization. This morning, patient's heart rate suddenly went from 120s, to bradycardia to asystole. CPR was initiated, ACLS was followed please see code sheet. ROSC was achieved after approximately 5 minutes of CPR, a total of 2 epinephrine pushes, 1amp calcium and 1amp bicarb. Family was contacted, spoke with son Paul, informed of clinical condition and recent event. Paul would like to make patient DNR. We will obtain post code labs
[2024-11-26 06:45] LABS: Troponin-I High Sensitivity 7517.5 ng/L (<3.5-17.0)
--- NOTE | 2024-11-26 07:00 | PC.NURSE ---
Upon initial assessment at 1900- pt intubated and sedated on propofol drip, titrated down per MAR d/t RASS -4. Right pupil 5mm, left pupil 4mm, both unreactive. Absent cough and gag reflexes. No response to noxious stimuli. Flaccid in all extremities. Levophed and vasopressin?drips infusing and titrated?per MAR. Sinus tachycardia?on tele, HR 120s. A-line to L fem with optimally?dampened waveform. ETT #7.5, 22 cm at lip. On ACVC settings, SpO2 > 90%. OGT clamped. Abdomen soft hypoactive bowel sounds. Lopez catheter in place, UOP approx 10 mL/hr, draining bright red blood, ASSET PROTECTION REPRESENTATIVE Nicolle aware. Temp 97 via core bladder probe, Maye hugger removed per ASSET PROTECTION REPRESENTATIVE. Repeat labs obtained, ASSET PROTECTION REPRESENTATIVE notified of results- bicarb 1 amp IVP x3 and albumin 100 mL IV x2 ordered and administered per AUG. At approx 2300- RASS?+1. No change to pupil sizes but now?sluggish. Pt spontaneously?opening eyes but?not tracking speaker or following commands, weakly ACUÑA. Minimal cough reflex?now noted. Propofol drip titrated per AUG. At approx 0400- pt febrile to 101.5, ASSET PROTECTION REPRESENTATIVE notified. APAP 650 mg via OGT ordered. Pt incontinent large amount of brown liquid stool, FMS placed. Bed locked in lowest position, alarm on. Repositioned?in bed q2hr with wedges/pillows. See EMR/flowsheet for further details. At 0527- pt HR dropped from 120s to bradycardia, then subsequently deteriorated to asystole. Code blue initiated- see code blue sheet. ROSC achieved 0532. Family notified?by ASSET PROTECTION REPRESENTATIVE. Code status changed to DNR. EKG obtained, patient converting from bradycardia vs third degree heart block. Report given to oncoming RN at 0700.
[2024-11-26] MEDS: 0.9 % Sodium Chloride Flush 3 ML SYRINGE IVFLUSH (07:14)
[2024-11-26 07:27] LABS: Band Neutrophils Percent 19 % (3-5); Lymphocytes Absolute Manual 1.1 X10*3/uL (1.2-4.9); Lymphocytes Percent Manual 7 % (20-40); Monocytes Absolute Manual 0.2 X10*3/uL (0.1-1.2); Monocytes Percent Manual 1 % (2-11); Neutrophils Absolute Manual 14.4 X10*3/uL (2.0-8.3); Neutrophils Percent Manual 73 % (45-73); Nucleated Red Blood Cells 5 /100WBC (0-0)
[2024-11-26 07:35] LABS: Acanthocytes 1+ (0-2) /OIF; Burr Cells 2+ (3-5) /OIF; Dohle Bodies PRESENT; Hypochromasia 1+ (5-14) /OIF; Ovalocytes 1+ (5-14) /OIF; RBC Morphology NOTED; Schistocytes 1+ (0-2) /OIF
[2024-11-26 07:36] LABS: WBC Morphology Comment SEE
[2024-11-26 07:37] LABS: Platelet Estimate DECREASED (NORMAL); Platelet Morphology Comment NORMAL
--- NOTE | 2024-11-26 09:12 | PC.NURSE ---
Assumed care at 0700, pt. mechanically vented, in complete heart block with ventricular rate 15-25. RESEARCH AND DEVELOPMENT DIRECTOR at bedside, no new orders at this time. Gela SBP 200s-230. Levophed titrated per MAR based on gela reading per RESEARCH AND DEVELOPMENT DIRECTOR. RASS -5, pt. completely unresponsive, -PERRLA, -Corneal reflex, -C/G/P response, no overbreathing on ventilator. At approx 0730, rhythym alternating between asystole and complete heart block- MD notified, no new orders. Pt. aystole on monitor, TE called at 0750. Family at bedside and notified. Ventilator disconnected by this RN. NEDs called, pt. declined for donation. Post mortem care completed.
--- NOTE | 2024-11-26 10:16 | P.DN_ITS ---
Discharge Sum: Prov Provider Primary care physician: Eloisa Vázquez DO Admitting clinician: Clark Arias Consults: 11/25/24 14:09 Consult to Cardiology Routine Consulting Provider: [facility] Reason for consultation: Cardiac arrest Pronouncing clinician: Clark Arias Discharge Sum: Diag Contributing Factors (1) Cardiac arrest: (2) Acute respiratory failure: (3) Acute blood loss anemia: (4) ESRD (end stage renal disease): (5) Cardiogenic shock: (6) Lactic acidosis: (7) Acute encephalopathy: Discharge Sum: Summary Date and Time Date of admission: 11/25/24 10:45 Date of : 11/26/24 Time of : 07:50 Summary Details: 79-year-old lady with past medical history of diabetes mellitus was functionally active until this June when she had a fall and developed CLAUDIA, was admitted at [facility]. 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 Since then she is dialysis dependent through left subclavian PermCath M/W/F, she had DVT in June on Eliquis went to hemodialysis this morning and returned back to her half-way when she was found very weak so EMS was called. Upon arrival to the ED patient was in cardio respiratory arrest, CPR was initiated ROSC was achieved about 10 minutes later. Patient is intubated and placed on ventilator support, posterior ROSC lab suggestive of pH 6.9, metabolic acidosis, potassium 6.1, anemia with hemoglobin 6 point. She also has alia blood per rectum and also through the Lopez. CT chest abdomen and pelvis did not show any abnormality, CT head negative for any intracranial pathology. After the ROSC was achieved patient had multiple episodes of sinus arrest, she was placed on multiple vasopressor drips including Levophed, epinephrine and vasopressin, she again went into cardiac arrest around 13:45 yesterday ROSC scheduled after about 5 minutes. Transthoracic echocardiogram obtained did not show any regional wall motion abnormalities, EF was close to 45-50%. After this patient went into atrial fibrillation with RVR and remained at rapid response, this morning again patient went into asystole needing CPR for 5-10 minutes before to ROSC was achieved. Given her critical condition including cardiogenic shock, shock liver, renal failure, lactic acidosis lower GI, vaginal bleed, hematuria and multiple cardiac arrest her prognosis was going to be very poor and this was explained to the family and the patient was changed to do not resuscitate. Patient again went into asystole and at 07:50AM. Additional Data Confirmation of as documented by pronouncing clinician: no pulse Family: at bedside Attending/PCP notified?: No Attending physician: Clark Arias MD Was code activated?: No Autopsy requested?: No insurance examiner notified?: No Organ bank notified?: No Advance directives: No Hospice patient?: No
[2024-11-26 12:31] LABS: ABG Refer to POC result
[2024-11-26 12:32] LABS: ABG Refer to POC result
[2024-11-27 07:42] LABS: Venous Blood Gas Refer to POC result
== END 2024-11-26 07:50 | disposition expired | DRG 296 ==
LOC: HO.ED 10:35 → HO.EDOVER 10:50 → HO.ICU 11:02
PROVIDERS: Physician Assistant Medical; Registered Nurse Community Health; Admitting Provider Internal Medicine Critical Care Medicine; Emergency Provider Emergency Medicine Emergency Medical Services; PCP Internal Medicine; Visit Provider Internal Medicine Critical Care Medicine
DX: I46.9 Cardiac arrest, cause unspecified (principal); G93.41 Metabolic encephalopathy; N18.6 End stage renal disease; D62 Acute posthemorrhagic anemia; E87.20 Acidosis, unspecified; K92.2 Gastrointestinal hemorrhage, unspecified; Z99.2 Dependence on renal dialysis; E11.22 Type 2 diabetes mellitus with diabetic chronic kidney disease; R57.0 Cardiogenic shock; N93.9 Abnormal uterine and vaginal bleeding, unspecified; Z86.718 Personal history of other venous thrombosis and embolism; Z79.4 Long term (current) use of insulin; Z79.01 Long term (current) use of anticoagulants; Z79.52 Long term (current) use of systemic steroids; Z79.899 Other long term (current) drug therapy
CPT/HCPCS: 36415; 70450; 71045; 71250; 72125; 74176; 80048; 80053; 80076; 81001; 82010; 82040; 82140; 82803; 82947; 83010; 83605; 83615; 83735; 84100; 84484; 85007; 85025; 85027; 85384; 85610; 86850; 86880; 86900; 86901; 86923; 87040; 87086; 93005; 93306; 94002; 94003; 94640; 94799; 99285; J0153; J0171; J0282; J0461; J0692; J2470; J2543; J2598; J2704; J2919; J7168; P9016; P9047; Q9957

== ENCOUNTER → 2024-11-25 09:14 | Outpatient (BNV) | payer MEDICARE, SELFPAY | PROVIDERS: Emergency Provider Emergency Medicine Emergency Medical Services; Visit Provider Radiology Diagnostic Radiology | DX: R93.3 Abnormal findings on diagnostic imaging of other parts of digestive tract (principal); J98.11 Atelectasis; M51.360 Other intervertebral disc degeneration, lumbar region with discogenic back pain only; G44.309 Post-traumatic headache, unspecified, not intractable; J98.6 Disorders of diaphragm; I51.7 Cardiomegaly | CPT/HCPCS: 70450; 71045; 71250; 72125; 74176 ==

== ENCOUNTER → 2024-11-25 09:15 | Outpatient (BNV) | payer MEDICARE, SELFPAY | PROVIDERS: Admitting Provider Internal Medicine Critical Care Medicine; Emergency Provider Emergency Medicine Emergency Medical Services; PCP Internal Medicine; Visit Provider Internal Medicine Cardiovascular Disease | DX: I46.9 Cardiac arrest, cause unspecified (principal); I42.2 Other hypertrophic cardiomyopathy; I34.81 Nonrheumatic mitral (valve) annulus calcification | CPT/HCPCS: 93306 ==

== ENCOUNTER → 2024-11-25 10:45 | Outpatient (BNV) | payer MEDICARE, SELFPAY | PROVIDERS: Admitting Provider Internal Medicine Critical Care Medicine; Emergency Provider Emergency Medicine Emergency Medical Services; PCP Internal Medicine; Visit Provider Internal Medicine Critical Care Medicine | DX: I46.9 Cardiac arrest, cause unspecified (principal); J96.00 Acute respiratory failure, unspecified whether with hypoxia or hypercapnia; N18.6 End stage renal disease; D62 Acute posthemorrhagic anemia; R57.0 Cardiogenic shock; E87.20 Acidosis, unspecified; G93.40 Encephalopathy, unspecified | CPT/HCPCS: 99239; 99291 ==